=== PATIENT | female | born 1955 | race Caucasian/White ===

== ENCOUNTER → 2016-09-29 | Outpatient (REF) | payer MEDICAID ==
[~2016-09-29] MED LIST: ASPI81TA45 OR; ATEN100T OR; CEFA2IV IV; HYDROCODONE PO; LISI20TA5 OR; PERCOCET PO; PRED10TA2 OR; RELPAX OR; SAVELLA PO; VICODINES TAB OR
== END ==
LOC: M SFHCCLAY 11:39
PROVIDERS: ATTEND Family Medicine
DX: N30.01 Acute cystitis with hematuria (principal)

== ENCOUNTER → 2016-10-21 | Outpatient (REF) | payer MEDICAID ==
[2016-10-21 17:17] LABS: BASO # 0.1 K/mm3 (0.0-0.2); BASO % 0.7 % (0.0-1.0); EOS # 0.3 K/mm3 (0.0-0.50); EOS % 3.3 % (0.0-3.0); LARGE UNSTAINED CELL # 0.1 K/mm3 (0.0-0.4); LARGE UNSTAINED CELL % 1.6 % (0.0-4.0); LYMPH # 1.8 K/mm3 (1.5-4.5); LYMPH % 19.9 % (24.0-44.0); MEAN CORPUSCULAR HEMOGLOBIN 29.6 pg (27.0-33.0); MEAN CORPUSCULAR HGB CONC 32.4 g/dl (32.0-36.5); MEAN CORPUSCULAR VOLUME 91.5 fl (80.0-96.0); MONO # 0.7 K/mm3 (0.0-0.8); MONO % 8.2 % (0.0-5.0); NEUTROPHILS # 5.9 K/mm3 (1.8-7.7); NEUTROPHILS % 66.4 % (36.0-66.0); PLATELET COUNT, AUTOMATED 410 k/mm3 (150-450); RED CELL DISTRIBUTION WIDTH 12.9 % (11.5-14.5); WHITE BLOOD COUNT 8.9 K/mm3 (4.0-10.0)
[2016-10-21 18:53] LABS: ANION GAP 7 MEQ/L (8-16); BLOOD UREA NITROGEN 25 MG/DL (7-18); CALCIUM LEVEL 8.5 MG/DL (8.8-10.2); CARBON DIOXIDE LEVEL 30 MEQ/L (21-32); CHLORIDE LEVEL 103 MEQ/L (98-107); CREATININE FOR GFR 0.76 MG/DL (0.55-1.02); GLOMERULAR FILTRATION RATE > 60.0 (>45); GLUCOSE, FASTING 127 MG/DL (80-110); SODIUM LEVEL 140 MEQ/L (136-145)
== END ==
LOC: M SFHCCLAY 11:04
PROVIDERS: ATTEND Family Medicine
DX: D50.9 Iron deficiency anemia, unspecified (principal); R73.01 Impaired fasting glucose; I10 Essential (primary) hypertension

== ENCOUNTER → 2017-10-16 | Outpatient (REF) | payer OTHER, MEDICAID | LOC: M SFHCLERA 09:29 | DX: R30.0 Dysuria (principal) | CPT/HCPCS: 87186 ==

== ENCOUNTER → 2018-02-23 | Outpatient (REF) | payer OTHER, MEDICAID ==
[2018-02-23 11:51] LABS: BASO # 0.1 10^3/uL (0.0-0.2); BASO % 0.9 % (0.0-1.0); EOS # 0.4 10^3/uL (0.0-0.50); EOS % 3.6 % (0.0-3.0); HEMATOCRIT 39.5 % (36.0-47.0); HEMOGLOBIN 12.8 g/dl (12.0-15.5); IMMATURE GRANULOCYTE % 0.4 % (0-3.0); LYMPH # 2.1 10^3/uL (1.5-4.5); LYMPH % 21.3 % (24.0-44.0); MEAN CORPUSCULAR HEMOGLOBIN 27.9 pg (27.0-33.0); MEAN CORPUSCULAR HGB CONC 32.4 g/dl (32.0-36.5); MEAN CORPUSCULAR VOLUME 86.1 fl (80.0-96.0); MONO % 10.4 % (0.0-5.0); NEUTROPHILS # 6.2 10^3/uL (1.8-7.7); NEUTROPHILS % 63.4 % (36.0-66.0); PLATELET COUNT, AUTOMATED 325 10^3/uL (150-450); RED BLOOD COUNT 4.59 10^6/uL (4.00-5.40); RED CELL DISTRIBUTION WIDTH 13.2 % (11.5-14.5); WHITE BLOOD COUNT 9.7 10^3/uL (4.0-10.0)
[2018-02-23 13:11] LABS: ALBUMIN 3.8 GM/DL (3.2-5.2); ALBUMIN/GLOBULIN RATIO 1.06 (1.00-1.93); ALKALINE PHOSPHATASE 78 U/L (45-117); ALT/SGPT 22 U/L (12-78); ANION GAP 13 MEQ/L (8-16); AST/SGOT 13 U/L (7-37); BILIRUBIN,TOTAL 0.3 MG/DL (0.2-1.0); BLOOD UREA NITROGEN 22 MG/DL (7-18); CALCIUM LEVEL 9.3 MG/DL (8.8-10.2); CARBON DIOXIDE LEVEL 26 MEQ/L (21-32); CHLORIDE LEVEL 103 MEQ/L (98-107); CHOLESTEROL LEVEL 175 MG/DL (<200); CHOLESTEROL RISK RATIO 4.729 (<5); CREATININE FOR GFR 0.78 MG/DL (0.55-1.30); GLOMERULAR FILTRATION RATE > 60.0 (>45); GLUCOSE, FASTING 193 MG/DL (70-100); HDL CHOLESTEROL 37 MG/DL (>40); IRON (FE) 47 UG/DL (50-170); LDL CHOLESTEROL 95 MG/DL (<100); NON-HDL-C 138 MG/DL; SODIUM LEVEL 142 MEQ/L (136-145); TOTAL PROTEIN 7.4 GM/DL (6.4-8.2); TRIGLYCERIDES LEVEL 215 MG/DL (<150)
[2018-02-23 13:57] LABS: MAU/CREAT RATIO 15.9 MCG/MG (0.0-30.0)
[2018-02-23 16:04] LABS: ESTIMATED AVERAGE GLUCOSE 169 MG/DL (60-110); HEMOGLOBIN A1c 7.5 %
== END ==
LOC: M SFHCCLAY 07:37
DX: I10 Essential (primary) hypertension (principal); E11.9 Type 2 diabetes mellitus without complications; D50.9 Iron deficiency anemia, unspecified

== ENCOUNTER → 2018-05-06 | Outpatient (REF) | payer OTHER, MEDICAID | LOC: M SFHCCLAY 16:29 | DX: R30.0 Dysuria (principal) | CPT/HCPCS: 87086 ==

== ENCOUNTER → 2018-05-14 | Outpatient (CLI) | payer MEDICAID, OTHER, SELFPAY ==
--- NOTE | 2018-06-01 23:18 | ECWPNPC ---
PATIENT NAME: HANNA GARVIN : 1955 GENDER: FEMALE VISIT DATE: 05/14/2018 DISCHARGE DATE: 05/14/18 1312 VISIT LOCKED DATE TIME: PHYSICIAN: RADHA VALENZUELA MD RESOURCE: RADHA VALENZUELA MD REASON FOR APPOINTMENT 1. BACK PAIN HISTORY OF PRESENT ILLNESS FALL RISK SCREENING: SCREENING :NO FALLS IN THE PAST YEAR PAIN SCREENING: PATIENT HAS A COMPLAINT OF ACUTE OR CHRONIC PAIN :YES HISTORY OF PRESENT ILLNESS: 62 YEAR OLD FEMALE PATIENT WITH A HISTORY OF CHRONIC LOW BACK PAIN. PATIENT DESCRIBES THE PAIN ACHING, BURNING, SHARP, STABBING, SHOOTING, AND HAVING IT ALL THE TIME WITH A PAIN SCORE OF 8-10/10. 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 THE PATIENT STATES THAT PHYSICAL THERAPY DID NOT ADMITTING MANAGER IN PAIN RELIEF. THE PATIENT STATES THAT SHE HAS PROBLEMS SLEEPING DUE TO THE PAIN. PATIENT DENIES UNEXPLAINABLE WEIGHT LOSS, FEVER, CHILLS, NEW CHANGES ON HER URINARY OR BOWEL CONTROL. CURRENT MEDICATIONS TAKING LASIX 40 MG TABLET 1 TABLET ORALLY ONCE A DAY TAKING ATENOLOL 100 MG TABLET 1 TABLET ORALLY TWICE A DAY TAKING HYDROCHLOROTHIAZIDE 50 MG TABLET 1 TABLET ORALLY ONCE A DAY TAKING LISINOPRIL 40 MG TABLET 1 TABLET ORALLY ONCE A DAY TAKING CYMBALTA 60 MG CAPSULE DELAYED RELEASE PARTICLES 1 CAPSULE ORALLY ONCE A DAY TAKING FLEXERIL 10 MG TABLET 1 TABLET ORALLY THREE TIMES A DAY TAKING IRON 325 (65 FE) MG TABLET 1 TABLET ORALLY ONCE A DAY TAKING GLUCOMETER DIRECTED TAKING BLOOD GLUCOSE TEST - STRIP DIRECTED IN VITRO DAILY TAKING LANCETS - MISCELLANEOUS DIRECTED DAILY TAKING METFORMIN HCL 500 MG TABLET 1 TABLET WITH A MEAL ORALLY TWICE DAILY TAKING GABAPENTIN 600 MG TABLET 1 CAP ORALLY THREE TIMES DAILY TAKING ATENOLOL 100 MG TABLET TAKE ONE TABLET BY MOUTH TWICE A DAY NOT-TAKING TOPAMAX 200 MG TABLET 1 TABLET ORALLY BEFORE BEDTIME NOT-TAKING PREMPRO 0.625-5 MG TABLET 1 TABLET ORALLY ONCE A DAY NOT-TAKING LYRICA 200 MG CAPSULE 1 CAPSULE ORALLY TWICE A DAY NOT-TAKING ATORVASTATIN CALCIUM 40 MG TABLET 1 TABLET ORALLY ONCE A DAY NOT-TAKING MACROBID 100 MG CAPSULE 1 CAPSULE WITH FOOD ORALLY EVERY 12 HRS DISCONTINUED LASIX 40 MG TABLET TAKE ONE TABLET BY MOUTH ONCE A DAY , NOTES: DUPLICATE DISCONTINUED HYDROCHLOROTHIAZIDE 50 MG TABLET TAKE ONE TABLET BY MOUTH EVERY DAY , NOTES: DUPLICATE DISCONTINUED FERROUS SULFATE 325 (65 FE) MG TABLET TAKE ONE TABLET BY MOUTH EVERY DAY , NOTES: DUPLICATE DISCONTINUED LISINOPRIL 40 MG TABLET TAKE ONE TABLET BY MOUTH ONCE A DAY , NOTES: DUPLICATE DISCONTINUED CYMBALTA 60 MG CAPSULE DELAYED RELEASE PARTICLES TAKE ONE CAPSULE BY MOUTH EVERY DAY , NOTES: DUPLICATE MEDICATION LIST REVIEWED AND RECONCILED WITH THE PATIENT PAST MEDICAL HISTORY HTN RA LOW BACK PAIN MIGRAINES EDEMA IRON DEFICIENCY ANEMIA DIABETES CHRONIC BACK PAIN ALLERGIES N.K.D.A. SURGICAL HISTORY RT ANKLE ORIF, REVISED 2011, 05/13 CHOLECYSTECTOMY 2011 FAMILY HISTORY FATHER: 59 YRS, HEART ATTACK, DIAGNOSED WITH HEART DISEASE MOTHER: 58 YRS, CANCER METS UNKNOWN ORIGIN, DIAGNOSED WITH CANCER SIBLINGS: ALIVE, 3 BROTHERS , DIAGNOSED WITH DIABETES, HYPERTENSION SON(S): ALIVE DAUGHTER(S): ALIVE 10 BROTHER(S) , 2 SISTER(S) . 1 SON(S) , 1 DAUGHTER(S) - HEALTHY. NEGATIVE FOR ANY UROLOGIC DISEASE. SOCIAL HISTORY GENERAL: TOBACCO USE ARE YOU A:NONSMOKER BMI CARE GOAL FOLLOW-UP ABOVE NORMAL BMI FOLLOW-UPDIETARY MANAGEMENT EDUCATION, GUIDANCE, AND COUNSELING ALCOHOL SCREENING DID YOU HAVE A DRINK CONTAINING ALCOHOL IN THE PAST YEAR?NO POINTS0 INTERPRETATIONNEGATIVE RECREATIONAL DRUG USE DENIES. CAFFEINE CAFFEINE USE?YES HOW OFTEN AND HOW MUCH? 1 COFFEE DAILY, OCCASIONAL SODA SEXUAL HX HAD SEX IN THE LAST 12 MONTHS (VAGINAL, ORAL, OR ANAL)?: YES, WITH: MEN ONLY, USE PROTECTION?: NO, HAVE YOU EVER HAD AN STD?: NO. HIV / HEP-C SCREENING HIV TEST OFFERED TO PATIENT:YES DATE OFFERED:05/06/2018 TEST ACCEPTED:NO REASON:PATIENT DECLINED BROCHURE PROVIDED TO PATIENTNO HEP-C TEST OFFERED TO PATIENT:YES DATE OFFERED:05/06/2018 TEST ACCEPTED:NO REASON:PATIENT DECLINED ORTHODOXY NO NONDENOMINATIONAL BELIEFS THAT WOULD IMPACT HEALTH CARE. LANGUAGE MALAY. LEARNING BARRIERS / SPECIAL NEEDS CHANGE FROM LAST VISIT?NO BARRIERS TO LEARNING?NO HEARING IMPAIRED?NO VISION IMPAIRED?NO COGNITIVELY IMPAIRED?NO READINESS TO LEARN?YES LEARNING PREFERENCES?NO LEARNING CAPABILITIES PRESENT?YES EMOTIONAL BARRIERS?NO SPECIAL DEVICES?NO STICKER ON NEEDED?NO DOMESTIC VIOLENCE NONE. OCCUPATION: DISABLED . DIET: REGULAR. EXERCISE: NONE. MARITAL STATUS: SINGLE. OTHERS AT HOME: OTHER NON-RELATIVE. PAIN CLINIC PFS, CLERGY, PUBLIC HEALTH REFERRALS HAS THE PATIENT BEEN EDUCATED REGARDING HIS/HER PLAN OF CARE?YES HAS THE PATIENT BEEN EDUCATED REGARDING PAIN, THE RISK FOR PAIN, THE IMPORTANCE OF EFFECTIVE PAIN MANAGEMENT, AND THE PAIN ASSESSMENT PROCESS?YES ADVANCE DIRECTIVE ADVANCE DIRECTIVE DISCUSSED WITH PATIENT:YES PT DOES NOT HAVE HCP AND DECLINES INFO AT THIS TIME. ASSISTANCE FILLING OUT FORM WAS OFFEREED AND DECLINED. REVIEWED WITH PT 05/14/18 1149 BV. HOSPITALIZATION/MAJOR DIAGNOSTIC PROCEDURE SURGERY RELATED REVIEW OF SYSTEMS REVIEWED BY: PROVIDER: RADHA VALENZUELA MD . CONSTITUTIONAL: ANY CHANGE IN YOUR MEDICAL CONDITION? NO . CHILLS NO . FEVER NO . INFECTION: DO YOU HAVE NEW INFECTIONS? NO . DO YOU HAVE HISTORY OF MRSA? NO . MUSCULOSKELETAL: ANY NEW PATTERNS OF PAIN OR NUMBNESS? NO . SYTEMIC LUPUS NO . GASTROENTEROLOGY: ANY NEW CHANGE IN BOWEL CONTROL? NO . BARRETTS ESOPHAGUS NO . CIRRHOSIS NO . HEPATITIS NO . LIVER FAILURE NO . ACID REFLUX YES, OCCASIONAL, USUALLY RELATED TO FOOD . UNEXPLAINED WEIGHT LOSS NO . GENITOURINARY: ANY NEW CHANGE IN BLADDER CONTROL? NO . IS THERE A CHANCE YOU COULD BE ? NO . HEMATOLOGY/LYMPH: DO YOU TAKE ANY BLOOD THINNERS? (FOR EXAMPLE- COUMADIN, PLAVIX, AGGRENOX, PLATEL, PRADAXA, OR XARELTO) NO . WHEN WAS YOUR LAST DOSE? DATE: TIME: . LOW PLATELET COUNT NO . SICKLE CELL DISEASE NO . VON WILLIEBRANDS NO . FACTOR V LEIDEN NO . THALLASEMIA NO . ANEMIA NO . EASY BRUISING NO . NEUROLOGY: HAVE YOU FALLEN IN THE PAST 6 MONTHS? NO . ANY NEW EXTREMITY NUMBNESS OR WEAKNESS? NO . HEAD INJURY NO . DEMENTIA NO . CEREBRAL PALSY NO . MULTIPLE SCLEROSIS NO . DIZZINESS NO . HEADACHE PT COMPLAINS OF MIGRAINES DAILY. . STROKES NO . VERTIGO NO . CARDIOLOGY: DO YOU HAVE A PACEMAKER OR DEFIBRILLATOR? NO . ANGINA NO . HEART ATTACK NO . HEART SURGERY NO . CONGESTIVE HEART FAILURE/FLUID OVERLOAD NO . CHEST PAIN NO . HIGH BLOOD PRESSURE ON MEDICATION(S) . IRREGULAR HEART BEAT NO . RESPIRATORY: HAVE YOU BEEN SICK IN THE PAST WEEK? NO . FEVER NO . FLU LIKE SYMPTOMS? NO . CPAP NO . BYPAP NO . ASTHMA NO . EMPHYSEMA NO . CHRONIC LUNG DISEASES NO . SHORTNESS OF BREATH ON EXERTION NO . COUGH NO . SNORING NO . INTEGUMENTARY: DO YOU HAVE ANY RASHES OR OPEN SORES? NO . ALLERGIC/IMMUNO: ARE YOU ALLERGIC TO SHELLFISH OR IV DYE? NO . ANY NEW ALLERGIES? NO . PSYCHIATRIC: DO YOU HAVE THOUGHTS OF HURTING YOURSELF OR SOMEONE ELSE? NO . ARE YOU ABUSED, NEGLECTED, OR IN AN UNSAFE ENVIRONMENT? NO . ENDOCRINOLOGY: ARE YOU DIABETIC? YES, ON MEDICATION . THYROID DISORDER NO . OTHER: DO YOU NEED ANY PRESCRIPTIONS? NO . IF YES, PLEASE LIST: ____ . ANY NEW PROBLEMS WITH YOUR MEDICATIONS? NO . WHEN DID YOU LAST EAT? ____ . WHEN DID YOU LAST DRINK? ____ . WHAT DID YOU LAST DRINK? ____ . NAME OF PERSON DRIVING YOU HOME? ____ . DO YOU HAVE ANY OTHER QUESTIONS OR CONCERNS NO . VITAL SIGNS WT 260.8 LBS, HT 67.5 IN, BMI 40.24 INDEX, BP 133/72 MM HG, HR 72 /MIN, RR 18 /MIN, TEMP 97.2 F, OXYGEN SAT % 95%, NA INITIALS AW 1128, REVIEWED BY: BV. EXAMINATION GENERAL EXAMINATION: PATIENT IS ALERT O X 3 AND COOPERATIVE. LUNGS CLEAR, TO AUSCULTATION. HEART: NO MURMURS OR GALLOPS; FACIAL CRANIAL NERVES ARE GROSSLY NORMAL. GOOD SYMMETRY OF FACIAL MUSCLE MOVEMENT. NORMAL VISUAL MAO. PATIENT HAS DIFFICULTIES STANDING UP AND SITTING. ANTALGIC GAIT. PATIENT IS WALKING AT AN AMPLE ANGLE. BOTH LEGS ARE WEAK WITH EXTENSION AND FLEXION. TENDERNESS OVER THE FACET JOINTS OF THE LOW BACK. INCREASING PAIN WITH EXTENSION AND LATERAL ROTATION OF THE LOW BACK. MRI OF THE LUMBAR SPINE DONE ON 04/23/18 SHOWS BULGING DISCS, DISC PROTRUSIONS AND FACET ARTHROPATHY CHANGES AT MULTIPLE LEVELS. ASSESSMENTS LUMBAR FACET ARTHROPATHY - M47.816 (PRIMARY) LOW BACK PAIN - M54.5 OTHER CHRONIC PAIN - G89.29 TREATMENT LUMBAR FACET ARTHROPATHY NOTES: FACET JOINT INJECTION MATERIAL WAS PRINTED,FACET JOINT INJECTION: YOUR EXPERIENCE MATERIAL WAS PRINTED. CLINICAL NOTES: WE DISCUSSED SEVERAL ISSUES WITH MRS. GARVIN'S PAIN MANAGEMENT CASE. DUE TO THE INCREASED PAIN OVER THE LOW BACK, I WOULD LIKE TO MOVE FORWARD WITH A LUMBAR FACET BLOCK AT THIS TIME AT L4-L5, L5-S1 BILATERAL. WE DISCUSSED THE BENEFITS, RISKS, AND ALTERNATIVES OF THE INJECTION AND THE PATIENT WOULD LIKE TO PROCEED. I WILL REQUEST AUTHORIZATION FOR THE PROCEDURE AND BOOK AFTER APPROVED. I WOULD ALSO LIKE TO START THE PATIENT ON TIZANIDINE TO HELP WITH SLEEPING AND PAIN RELIEF. I WILL ALSO PRESCRIBE A WEEK SUPPLY OF HYDROCODONE TO HELP WITH THE SEVERE PAIN UNTIL I FOLLOW UP WITH THE PATIENT NEXT WEEK. I WOULD ALSO LIKE FOR THE PATIENT TO DO A URINE TOXICOLOGY TEST AND SIGN A NARCOTIC AGREEMENT AT TODAY'S APPOINTMENT. INSTRUCTIONS WERE GIVEN, QUESTIONS WERE ANSWERED, PATIENT REPORTS UNDERSTANDING AND AGREES WITH THE PLAN. I, ROSSI TAN, DOCUMENTED THE ABOVE INFORMATION ACTING A SCRIBE FOR DR. VALENZUELA. I HAVE REVIEWED THE ABOVE DOCUMENT, WRITTEN BY ROSSI TAN SCRIBEliazar AND I VERIFY THAT IT IS ACCURATE. DEAR DR. UMANA: THANK YOU FOR YOUR KIND REFERRAL OF MRS. GARVIN. IF YOU WANT TO DISCUSS HER CASE WITH ME, PLEASE CALL ME AT THE PAIN CENTER AT [phone]. SINCERELY, RDAHA VALENZUELA MD. PAIN MEDICINE. OTHERS START TIZANIDINE HCL TABLET, 2 MG, 1 TABLET NEEDED, ORALLY FOR SPASMS AND PAIN, BEFORE BEDTIME MAY REPEAT IN 5 HRS MDD2, 30 DAY(S), 50, REFILLS 1 START HYDROCODONE-ACETAMINOPHEN TABLET, 5-325 MG, 1 TABLET NEEDED, ORALLY FOR PAIN, DAILY, 7 DAY(S), 7 TABLET, REFILLS 0 PROCEDURES PN WORKMANS' COMP OPINION IN YOUR OPINION, WAS THE INCIDENT THAT THE PATIENT DESCRIBED THE COMPETENT MEDICAL CAUSE OF THIS INJURY/ILLNESS? YES ARE THE PATIENT'S COMPLAINTS CONSISTENT WITH HIS/HER HISTORY OF THE INJURY/ILLNESS? YES IS THE PATIENT'S HISTORY OF THE INJURY/ILLNESS CONSISTENT WITH YOUR OBJECTIVE FINDING? YES WHAT IS THE PERCENTAGE OF TEMPORARY IMPAIRMENT? MILD = 25% IS THE PATIENT WORKING? NO DOCTOR ON SITE: RADHA TAI MD PREVENTIVE MEDICINE PAIN CLINIC TEACHING: MEDICATIONS PRINTED HANDOUTS FOR TIZANIDINE AND HYDROCODONE/ACETAMINOPHEN GIVEN AND REVIEWED WITH PATIENTS. PROCEDURE TEACHING FACET JOINT INJECTION PRINTED AND REVIEWED WITH PATIENT, PT VERBALIZES UNDERSTANDING OF TEACHING.. THE PATIENT HAS BEEN EDUCATED REGARDING HIS/HER PLAN OF CARE :YES (PLEASE DOCUMENT ADDTIONAL DETAILS IN THE FREE TEXT NOTES SECTION) PROCEDURE CODES FA211 ESTABILISHED PATIENT [facility] FACILITY CHARGE G2867 CURRENT MEDS W/DOSAGES DOCUMENTED G8411 PAIN ASSESS POS TOOL F/U PLAN DOC DISPOSITION & COMMUNICATION FOLLOW UP 2 - 3 DAYS ELECTRONICALLY SIGNED BY RADHA VALENZUELA MD, MD ON 06/01/2018 AT 07:42 PM EST DISCLAIMER : THIS IS A VISIT SUMMARY EXTRACTED FROM THE [employer] CHART. IT IS NOT A COPY OF THE [employer] PROGRESS NOTE. MICHAEL
== END ==
LOC: M PAIN 11:30
PROVIDERS: ATTEND Anesthesiology
DX: G89.29 Other chronic pain (principal); M54.5 Low back pain; I10 Essential (primary) hypertension; M06.9 Rheumatoid arthritis, unspecified; G43.909 Migraine, unspecified, not intractable, without status migrainosus; D50.9 Iron deficiency anemia, unspecified; E11.9 Type 2 diabetes mellitus without complications; R60.9 Edema, unspecified; Z90.49 Acquired absence of other specified parts of digestive tract; Z79.84 Long term (current) use of oral hypoglycemic drugs; Z79.899 Other long term (current) drug therapy

== ENCOUNTER → 2018-05-17 | Outpatient (CLI) | payer SELFPAY, MEDICAID ==
--- NOTE | 2018-06-01 23:15 | ECWPNPC ---
PATIENT NAME: HANNA GARVIN : 1955 GENDER: FEMALE VISIT DATE: 05/17/2018 DISCHARGE DATE: 05/17/181657 VISIT LOCKED DATE TIME: PHYSICIAN: RADHA VALENZUELA MD RESOURCE: RADHA VALENZUELA MD REASON FOR APPOINTMENT 1. F/U BACK PAIN HISTORY OF PRESENT ILLNESS HISTORY OF PRESENT ILLNESS: PAIN THE PATIENT DESCRIBES THE PAIN... 62 YEAR OLD FEMALE PATIENT WITH A HISTORY OF CHRONIC LOW BACK PAIN. THE PATIENT DESCRIBES THE PAIN ACHING, BURNING, SHARP, STABBING, AND HAVING IT ALL THE TIME WITH A PAIN SCORE OF 10/10. 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 THE PATIENT SAYS THAT THE PAIN STARTS IN HER LOW BACK AND RADIATES DOWN BOTH OF HER LEGS WITH SOME NUMBNESS AND TINGLING. THE PATIENT SAYS THAT SHE SOMETIMES EXPERIENCES SHAKINESS IN HER LEGS THAT CAUSES HER TO FALL. THE PATIENT HAS TRIED PHYSICAL THERAPY IN THE PAST, BUT STATES THAT IT MADE HER PAIN WORSE. THE PATIENT SAYS SHE HAS DIFFICULTY DOING ACTIVITIES SUCH COOKING, CLEANING, AND STANDING FOR LONG PERIODS OF TIME. THE PATIENT IS CURRENTLY USING GABAPENTIN, CYMBALTA, TIZANIDINE, AND HYDROCODONE TO AID IN PAIN RELIEF. THE PATIENT STATES THAT THE TIZANIDINE HAS NOT BEEN HELPING AND THE ONE HYDROCODONE PER DAY HAS NOT HELPED. PATIENT DENIES UNEXPLAINABLE WEIGHT LOSS, FEVER, CHILLS, NEW CHANGES ON HER URINARY OR BOWEL CONTROL. FALL RISK SCREENING: SCREENING :NO FALLS IN THE PAST YEAR CURRENT MEDICATIONS TAKING LASIX 40 MG TABLET 1 TABLET ORALLY ONCE A DAY TAKING ATENOLOL 100 MG TABLET 1 TABLET ORALLY TWICE A DAY TAKING HYDROCHLOROTHIAZIDE 50 MG TABLET 1 TABLET ORALLY ONCE A DAY TAKING LISINOPRIL 40 MG TABLET 1 TABLET ORALLY ONCE A DAY TAKING CYMBALTA 60 MG CAPSULE DELAYED RELEASE PARTICLES 1 CAPSULE ORALLY ONCE A DAY TAKING FLEXERIL 10 MG TABLET 1 TABLET ORALLY THREE TIMES A DAY TAKING IRON 325 (65 FE) MG TABLET 1 TABLET ORALLY ONCE A DAY TAKING GLUCOMETER DIRECTED TAKING BLOOD GLUCOSE TEST - STRIP DIRECTED IN VITRO DAILY TAKING LANCETS - MISCELLANEOUS DIRECTED DAILY TAKING METFORMIN HCL 500 MG TABLET 1 TABLET WITH A MEAL ORALLY TWICE DAILY TAKING GABAPENTIN 600 MG TABLET 1 CAP ORALLY THREE TIMES DAILY TAKING TIZANIDINE HCL 2 MG TABLET 1 TABLET NEEDED ORALLY FOR SPASMS AND PAIN BEFORE BEDTIME MAY REPEAT IN 5 HRS MDD2 TAKING HYDROCODONE-ACETAMINOPHEN 5-325 MG TABLET 1 TABLET NEEDED ORALLY FOR PAIN DAILY NOT-TAKING ATENOLOL 100 MG TABLET TAKE ONE TABLET BY MOUTH TWICE A DAY , NOTES: DUPLICATE NOT-TAKING TOPAMAX 200 MG TABLET 1 TABLET ORALLY BEFORE BEDTIME NOT-TAKING PREMPRO 0.625-5 MG TABLET 1 TABLET ORALLY ONCE A DAY NOT-TAKING LYRICA 200 MG CAPSULE 1 CAPSULE ORALLY TWICE A DAY NOT-TAKING ATORVASTATIN CALCIUM 40 MG TABLET 1 TABLET ORALLY ONCE A DAY NOT-TAKING MACROBID 100 MG CAPSULE 1 CAPSULE WITH FOOD ORALLY EVERY 12 HRS MEDICATION LIST REVIEWED AND RECONCILED WITH THE PATIENT PAST MEDICAL HISTORY HTN RA LOW BACK PAIN MIGRAINES EDEMA IRON DEFICIENCY ANEMIA DIABETES CHRONIC BACK PAIN ALLERGIES N.K.D.A. SURGICAL HISTORY RT ANKLE ORIF, REVISED 2011, 05/13 CHOLECYSTECTOMY 2011 FAMILY HISTORY FATHER: 59 YRS, HEART ATTACK, DIAGNOSED WITH HEART DISEASE MOTHER: 58 YRS, CANCER METS UNKNOWN ORIGIN, DIAGNOSED WITH CANCER SIBLINGS: ALIVE, 3 BROTHERS , DIAGNOSED WITH DIABETES, HYPERTENSION SON(S): ALIVE DAUGHTER(S): ALIVE 10 BROTHER(S) , 2 SISTER(S) . 1 SON(S) , 1 DAUGHTER(S) - HEALTHY. NEGATIVE FOR ANY UROLOGIC DISEASE. SOCIAL HISTORY GENERAL: TOBACCO USE ARE YOU A:NONSMOKER BMI CARE GOAL FOLLOW-UP ABOVE NORMAL BMI FOLLOW-UPDIETARY MANAGEMENT EDUCATION, GUIDANCE, AND COUNSELING ALCOHOL SCREENING DID YOU HAVE A DRINK CONTAINING ALCOHOL IN THE PAST YEAR?NO POINTS0 INTERPRETATIONNEGATIVE RECREATIONAL DRUG USE DENIES. CAFFEINE CAFFEINE USE?YES HOW OFTEN AND HOW MUCH? 1 COFFEE DAILY, OCCASIONAL SODA SEXUAL HX HAD SEX IN THE LAST 12 MONTHS (VAGINAL, ORAL, OR ANAL)?: YES, WITH: MEN ONLY, USE PROTECTION?: NO, HAVE YOU EVER HAD AN STD?: NO. HIV / HEP-C SCREENING HIV TEST OFFERED TO PATIENT:YES DATE OFFERED:05/06/2018 TEST ACCEPTED:NO HEP-C TEST OFFERED TO PATIENT:YES DATE OFFERED:05/06/2018 REASON:PATIENT DECLINED TEST ACCEPTED:NO REASON:PATIENT DECLINED BROCHURE PROVIDED TO PATIENTNO ADVENT NO MU-ISM BELIEFS THAT WOULD IMPACT HEALTH CARE. LANGUAGE EQUATORIAL GUINEAN. LEARNING BARRIERS / SPECIAL NEEDS CHANGE FROM LAST VISIT?NO BARRIERS TO LEARNING?NO HEARING IMPAIRED?NO VISION IMPAIRED?NO COGNITIVELY IMPAIRED?NO READINESS TO LEARN?YES LEARNING PREFERENCES?NO LEARNING CAPABILITIES PRESENT?YES EMOTIONAL BARRIERS?NO SPECIAL DEVICES?NO FRONT TENDER NEEDED?NO DOMESTIC VIOLENCE NONE. OCCUPATION: DISABLED . DIET: REGULAR. EXERCISE: NONE. MARITAL STATUS: SINGLE. OTHERS AT HOME: OTHER NON-RELATIVE. PAIN CLINIC PFS, CLERGY, PUBLIC HEALTH REFERRALS HAS THE PATIENT BEEN EDUCATED REGARDING HIS/HER PLAN OF CARE?YES HAS THE PATIENT BEEN EDUCATED REGARDING PAIN, THE RISK FOR PAIN, THE IMPORTANCE OF EFFECTIVE PAIN MANAGEMENT, AND THE PAIN ASSESSMENT PROCESS?YES ADVANCE DIRECTIVE ADVANCE DIRECTIVE DISCUSSED WITH PATIENT:YES PATIENT DECLINES HCP INFORMATION AT THIS TIME. REVIEWED WITH PT 05/14/18 1149 BVREVIEWED WITH PATIENT 05/17/18 1617 JS. HOSPITALIZATION/MAJOR DIAGNOSTIC PROCEDURE SURGERY RELATED REVIEW OF SYSTEMS REVIEWED BY: PROVIDER: RADHA VALENZUELA MD . CONSTITUTIONAL: ANY CHANGE IN YOUR MEDICAL CONDITION? NO . CHILLS NO . FEVER NO . INFECTION: DO YOU HAVE NEW INFECTIONS? NO . DO YOU HAVE HISTORY OF MRSA? NO . MUSCULOSKELETAL: ANY NEW PATTERNS OF PAIN OR NUMBNESS? NO . GASTROENTEROLOGY: ANY NEW CHANGE IN BOWEL CONTROL? NO . GENITOURINARY: ANY NEW CHANGE IN BLADDER CONTROL? NO . IS THERE A CHANCE YOU COULD BE ? NO . HEMATOLOGY/LYMPH: DO YOU TAKE ANY BLOOD THINNERS? (FOR EXAMPLE- COUMADIN, PLAVIX, AGGRENOX, PLATEL, PRADAXA, OR XARELTO) NO . WHEN WAS YOUR LAST DOSE? DATE: TIME: . NEUROLOGY: HAVE YOU FALLEN IN THE PAST 6 MONTHS? NO . ANY NEW EXTREMITY NUMBNESS OR WEAKNESS? NO . CARDIOLOGY: DO YOU HAVE A PACEMAKER OR DEFIBRILLATOR? NO . RESPIRATORY: HAVE YOU BEEN SICK IN THE PAST WEEK? NO . FEVER NO . FLU LIKE SYMPTOMS? NO . COUGH NO . INTEGUMENTARY: DO YOU HAVE ANY RASHES OR OPEN SORES? NO . ALLERGIC/IMMUNO: ARE YOU ALLERGIC TO SHELLFISH OR IV DYE? NO . ANY NEW ALLERGIES? NO . PSYCHIATRIC: DO YOU HAVE THOUGHTS OF HURTING YOURSELF OR SOMEONE ELSE? NO . ARE YOU ABUSED, NEGLECTED, OR IN AN UNSAFE ENVIRONMENT? NO . ENDOCRINOLOGY: ARE YOU DIABETIC? YES . OTHER: DO YOU NEED ANY PRESCRIPTIONS? YES . IF YES, PLEASE LIST: ____HYDROCODONE . ANY NEW PROBLEMS WITH YOUR MEDICATIONS? NO . WHEN DID YOU LAST EAT? ____ . WHEN DID YOU LAST DRINK? ____ . WHAT DID YOU LAST DRINK? ____ . NAME OF PERSON DRIVING YOU HOME? ____ . DO YOU HAVE ANY OTHER QUESTIONS OR CONCERNS NO . VITAL SIGNS WT 260.8 LBS, HT 67.5 IN, BMI 40.24 INDEX, BP 158/87 MM HG, HR 72 /MIN, RR 18 /MIN, TEMP 96.6 F, OXYGEN SAT % 95%, SAFE IN ENV? (Y/N) YES, NA INITIALS AW 1551, REVIEWED BY: KAITY. EXAMINATION GENERAL EXAMINATION: PATIENT IS ALERT O X 3 AND COOPERATIVE. ANTALGIC GAIT. TENDERNESS IN THE PARASPINAL MUSCLE GROUP IN THE LOW BACK AREA. BOTH LEGS ARE WEAK AT EXTENSION AND FLEXION. MRI OF THE LUMBAR SPINE DONE ON 04/23/2018 SHOWS A DISC EXTRUSION AT L4-L5 AND MULTIPLE DISC PROTRUSIONS. ASSESSMENTS INTERVERTEBRAL DISC DISORDER WITH RADICULOPATHY OF LUMBAR REGION - M51.16 (PRIMARY) LUMBAGO - M54.5 DIABETIC POLYNEUROPATHY ASSOCIATED WITH TYPE 2 DIABETES MELLITUS - E11.42 TREATMENT INTERVERTEBRAL DISC DISORDER WITH RADICULOPATHY OF LUMBAR REGION CLINICAL NOTES: WE DISCUSSED SEVERAL ISSUES WITH MRS. GARVIN'S PAIN MANAGEMENT CASE. I WOULD LIKE TO INCREASES THE CYMBALTA TO 2 TABLETS PER DAY AND THE GABAPENTIN TO 4 TABLETS PER DAY FOR THE NEUROPATHIC PAIN. I WILL ALSO INCREASE THE HYDROCODONE TO 2 TABLETS PER DAY FOR THE SOMATIC PAIN. I WOULD LIKE THE PATIENT TO STOP USING THE TIZANIDINE FOR NOW, BUT WE WILL CONSIDER INCREASING THE DOSAGE IN THE FUTURE. ISTOP _[id number] WAS REVIEWED. I WILL REQUEST AN INTERFERENTIAL TENS UNIT TO SEE IF THAT WILL HELP RELIEVE SOME OF THE PATIENT'S PAIN. DUE TO THE LUMBAR RADICULOPATHY, I WOULD LIKE TO MOVE FORWARD WITH A LUMBAR EPIDURAL STEROID INJECTION AT THIS TIME. WE DISCUSSED THE BENEFITS, RISKS, AND ALTERNATIVES OF THE INJECTION AND THE PATIENT WOULD LIKE TO PROCEED. THE PATIENT WILL FOLLOW UP IN 3 WEEKS FOR MEDICATION MANAGEMENT. INSTRUCTIONS WERE GIVEN, QUESTIONS WERE ANSWERED, PATIENT REPORTS UNDERSTANDING AND AGREES WITH THE PLAN. I, STACY BASHIR, DOCUMENTED THE ABOVE INFORMATION ACTING A SCRIBE FOR DR. VALENZUELA. I HAVE REVIEWED THE ABOVE DOCUMENT, WRITTEN BY STACY BASHIR SCRIBE AND I VERIFY THAT IT IS ACCURATE. LUMBAGO REFILL CYMBALTA CAPSULE DELAYED RELEASE PARTICLES, 60 MG, 1 CAPSULE, ORALLY FOR PAIN, BID, 30 DAYS, 60 CAPSULE, REFILLS 0 DIABETIC POLYNEUROPATHY ASSOCIATED WITH TYPE 2 DIABETES MELLITUS REFILL GABAPENTIN TABLET, 600 MG, 1 CAP, ORALLY, QID, 30 DAY(S), 120 CAPSULE, REFILLS 0 OTHERS REFILL TIZANIDINE HCL TABLET, 2 MG, 1 TABLET NEEDED, ORALLY FOR SPASMS AND PAIN, BEFORE BEDTIME MAY REPEAT IN 5 HRS MDD2, 30 DAY(S), 50, REFILLS 1 REFILL HYDROCODONE-ACETAMINOPHEN TABLET, 5-325 MG, 1 TABLET NEEDED, ORALLY FOR PAIN, BID, 30 DAYS, 60, REFILLS 0 PROCEDURE CODES FA211 ESTABILISHED PATIENT [facility] FACILITY CHARGE G8427 CURRENT MEDS W/DOSAGES DOCUMENTED G8730 PAIN ASSESS POS TOOL F/U PLAN DOC DISPOSITION & COMMUNICATION FOLLOW UP 3 WEEKS ELECTRONICALLY SIGNED BY RADHA VALENZUELA MD, ON 06/01/2018 AT 07:28 PM EST DISCLAIMER : THIS IS A VISIT SUMMARY EXTRACTED FROM THE [employer] CHART. IT IS NOT A COPY OF THE [employer] PROGRESS NOTE. MTDD
== END ==
LOC: M PAIN 15:30
PROVIDERS: ATTEND Anesthesiology
DX: M51.16 Intervertebral disc disorders with radiculopathy, lumbar region (principal); M54.5 Low back pain; E11.42 Type 2 diabetes mellitus with diabetic polyneuropathy; I10 Essential (primary) hypertension; M06.9 Rheumatoid arthritis, unspecified; G43.909 Migraine, unspecified, not intractable, without status migrainosus; R60.9 Edema, unspecified; D50.9 Iron deficiency anemia, unspecified; Z90.49 Acquired absence of other specified parts of digestive tract; Z79.84 Long term (current) use of oral hypoglycemic drugs; Z79.891 Long term (current) use of opiate analgesic; Z79.899 Other long term (current) drug therapy

== ENCOUNTER → 2018-06-07 | Outpatient (CLI) | payer SELFPAY, MEDICAID ==
--- NOTE | 2018-06-23 00:17 | ECWPNPC ---
PATIENT NAME: HANNA GARVIN : 1955 GENDER: FEMALE VISIT DATE: 06/07/2018 DISCHARGE DATE: 06/07/18 1547 VISIT LOCKED DATE TIME: PHYSICIAN: RADHA VALENZUELA MD RESOURCE: RADHA VALENZUELA MD REASON FOR APPOINTMENT 1. MED MNNT HISTORY OF PRESENT ILLNESS HISTORY OF PRESENT ILLNESS: PAIN THE PATIENT DESCRIBES THE PAIN... 62 YEAR OLD FEMALE PATIENT WITH A HISTORY OF CHRONIC LOW BACK PAIN. THE PATIENT DESCRIBES THE PAIN ACHING, BURNING, STABBING, SHOOTING, AND CONTINUOUS WITH A PAIN SCORE OF 2-10/10 DEPENDING ON PHYSICAL ACTIVITY. THE PATIENT SAYS THAT HER PAIN HAS BEEN SEVERE RECENTLY AND HER MEDICATIONS HAVE NOT BEEN HELPING MUCH. THE PATIENT IS CURRENTLY USING HYDROCODONE, TIZANIDINE, GABAPENTIN, AND CYMBALTA TO AID IN PAIN RELIEF. PATIENT DENIES UNEXPLAINABLE WEIGHT LOSS, FEVER, CHILLS, NEW CHANGES ON HER URINARY OR BOWEL CONTROL. FALL RISK SCREENING: SCREENING :NO FALLS IN THE PAST YEAR CURRENT MEDICATIONS TAKING TIZANIDINE HCL 2 MG TABLET 1 TABLET NEEDED ORALLY FOR SPASMS AND PAIN BEFORE BEDTIME MAY REPEAT IN 5 HRS MDD2 TAKING HYDROCODONE-ACETAMINOPHEN 5-325 MG TABLET 1 TABLET NEEDED ORALLY FOR PAIN BID TAKING GABAPENTIN 600 MG TABLET 1 CAP ORALLY QID TAKING LASIX 40 MG TABLET 1 TABLET ORALLY ONCE A DAY TAKING ATENOLOL 100 MG TABLET 1 TABLET ORALLY TWICE A DAY TAKING HYDROCHLOROTHIAZIDE 50 MG TABLET 1 TABLET ORALLY ONCE A DAY TAKING LISINOPRIL 40 MG TABLET 1 TABLET ORALLY ONCE A DAY TAKING FLEXERIL 10 MG TABLET 1 TABLET ORALLY THREE TIMES A DAY TAKING IRON 325 (65 FE) MG TABLET 1 TABLET ORALLY ONCE A DAY TAKING GLUCOMETER DIRECTED TAKING BLOOD GLUCOSE TEST - STRIP DIRECTED IN VITRO DAILY TAKING LANCETS - MISCELLANEOUS DIRECTED DAILY TAKING METFORMIN HCL 500 MG TABLET 1 TABLET WITH A MEAL ORALLY TWICE DAILY TAKING CYMBALTA 60 MG CAPSULE DELAYED RELEASE PARTICLES TAKE ONE CAPSULE BY MOUTH EVERY DAY NOT-TAKING ATENOLOL 100 MG TABLET TAKE ONE TABLET BY MOUTH TWICE A DAY , NOTES: DUPLICATE NOT-TAKING TOPAMAX 200 MG TABLET 1 TABLET ORALLY BEFORE BEDTIME NOT-TAKING PREMPRO 0.625-5 MG TABLET 1 TABLET ORALLY ONCE A DAY NOT-TAKING LYRICA 200 MG CAPSULE 1 CAPSULE ORALLY TWICE A DAY NOT-TAKING ATORVASTATIN CALCIUM 40 MG TABLET 1 TABLET ORALLY ONCE A DAY NOT-TAKING MACROBID 100 MG CAPSULE 1 CAPSULE WITH FOOD ORALLY EVERY 12 HRS DISCONTINUED HYDROCHLOROTHIAZIDE 50 MG TABLET TAKE ONE TABLET BY MOUTH EVERY DAY , NOTES: DUPLICATE DISCONTINUED FERROUS SULFATE 325 (65 FE) MG TABLET TAKE ONE TABLET BY MOUTH EVERY DAY , NOTES: DUPLICATE DISCONTINUED LISINOPRIL 40 MG TABLET TAKE ONE TABLET BY MOUTH ONCE A DAY , NOTES: DUPLICATE MEDICATION LIST REVIEWED AND RECONCILED WITH THE PATIENT PAST MEDICAL HISTORY HTN RA LOW BACK PAIN MIGRAINES EDEMA IRON DEFICIENCY ANEMIA DIABETES CHRONIC BACK PAIN ALLERGIES N.K.D.A. SURGICAL HISTORY RT ANKLE ORIF, REVISED 2011, 05/13 CHOLECYSTECTOMY 2011 FAMILY HISTORY FATHER: 59 YRS, HEART ATTACK, DIAGNOSED WITH HEART DISEASE MOTHER: 58 YRS, CANCER METS UNKNOWN ORIGIN, DIAGNOSED WITH CANCER SIBLINGS: ALIVE, 3 BROTHERS , DIAGNOSED WITH DIABETES, HYPERTENSION SON(S): ALIVE DAUGHTER(S): ALIVE 10 BROTHER(S) , 2 SISTER(S) . 1 SON(S) , 1 DAUGHTER(S) - HEALTHY. NEGATIVE FOR ANY UROLOGIC DISEASE. SOCIAL HISTORY GENERAL: TOBACCO USE ARE YOU A:NONSMOKER BMI CARE GOAL FOLLOW-UP ABOVE NORMAL BMI FOLLOW-UPDIETARY MANAGEMENT EDUCATION, GUIDANCE, AND COUNSELING ALCOHOL SCREENING DID YOU HAVE A DRINK CONTAINING ALCOHOL IN THE PAST YEAR?NO POINTS0 INTERPRETATIONNEGATIVE RECREATIONAL DRUG USE DENIES. CAFFEINE CAFFEINE USE?YES HOW OFTEN AND HOW MUCH? 1 COFFEE DAILY, OCCASIONAL SODA SEXUAL HX HAD SEX IN THE LAST 12 MONTHS (VAGINAL, ORAL, OR ANAL)?: YES, WITH: MEN ONLY, USE PROTECTION?: NO, HAVE YOU EVER HAD AN STD?: NO. HIV / HEP-C SCREENING HIV TEST OFFERED TO PATIENT:YES DATE OFFERED:05/06/2018 TEST ACCEPTED:NO HEP-C TEST OFFERED TO PATIENT:YES DATE OFFERED:05/06/2018 REASON:PATIENT DECLINED TEST ACCEPTED:NO REASON:PATIENT DECLINED BROCHURE PROVIDED TO PATIENTNO CHRISTIANITY NO ORTHODOXY BELIEFS THAT WOULD IMPACT HEALTH CARE. LANGUAGE HUNGARIAN. LEARNING BARRIERS / SPECIAL NEEDS CHANGE FROM LAST VISIT?NO BARRIERS TO LEARNING?NO HEARING IMPAIRED?NO VISION IMPAIRED?NO COGNITIVELY IMPAIRED?NO READINESS TO LEARN?YES LEARNING PREFERENCES?NO LEARNING CAPABILITIES PRESENT?YES EMOTIONAL BARRIERS?NO SPECIAL DEVICES?NO CRAB BUTCHER NEEDED?NO DOMESTIC VIOLENCE NONE. OCCUPATION: DISABLED . DIET: REGULAR. EXERCISE: NONE. MARITAL STATUS: SINGLE. OTHERS AT HOME: OTHER NON-RELATIVE. PAIN CLINIC PFS, CLERGY, PUBLIC HEALTH REFERRALS HAS THE PATIENT BEEN EDUCATED REGARDING HIS/HER PLAN OF CARE?YES HAS THE PATIENT BEEN EDUCATED REGARDING PAIN, THE RISK FOR PAIN, THE IMPORTANCE OF EFFECTIVE PAIN MANAGEMENT, AND THE PAIN ASSESSMENT PROCESS?YES ADVANCE DIRECTIVE ADVANCE DIRECTIVE DISCUSSED WITH PATIENT:YES PATIENT DECLINES HCP INFORMATION AT THIS TIME. DECLINES ASSISTANCE WITH FORM. 06/07/18 1452 REVIEWED WITH PT 05/14/18 1149 BVREVIEWED WITH PATIENT 05/17/18 1617 JSREVIEWED WITH PT 06/07/18 1453 BV. HOSPITALIZATION/MAJOR DIAGNOSTIC PROCEDURE SURGERY RELATED REVIEW OF SYSTEMS REVIEWED BY: PROVIDER: RADHA VALENZUELA MD . CONSTITUTIONAL: ANY CHANGE IN YOUR MEDICAL CONDITION? NO . CHILLS NO . FEVER NO . INFECTION: DO YOU HAVE NEW INFECTIONS? NO . DO YOU HAVE HISTORY OF MRSA? NO . MUSCULOSKELETAL: ANY NEW PATTERNS OF PAIN OR NUMBNESS? NO . GASTROENTEROLOGY: ANY NEW CHANGE IN BOWEL CONTROL? NO . GENITOURINARY: ANY NEW CHANGE IN BLADDER CONTROL? NO . IS THERE A CHANCE YOU COULD BE ? NO . HEMATOLOGY/LYMPH: DO YOU TAKE ANY BLOOD THINNERS? (FOR EXAMPLE- COUMADIN, PLAVIX, AGGRENOX, PLATEL, PRADAXA, OR XARELTO) NO . WHEN WAS YOUR LAST DOSE? DATE: TIME: . NEUROLOGY: HAVE YOU FALLEN IN THE PAST 6 MONTHS? NO . ANY NEW EXTREMITY NUMBNESS OR WEAKNESS? NO . CARDIOLOGY: DO YOU HAVE A PACEMAKER OR DEFIBRILLATOR? NO . RESPIRATORY: HAVE YOU BEEN SICK IN THE PAST WEEK? NO . FEVER NO . FLU LIKE SYMPTOMS? NO . COUGH NO . INTEGUMENTARY: DO YOU HAVE ANY RASHES OR OPEN SORES? NO . ALLERGIC/IMMUNO: ARE YOU ALLERGIC TO SHELLFISH OR IV DYE? NO . ANY NEW ALLERGIES? NO . PSYCHIATRIC: DO YOU HAVE THOUGHTS OF HURTING YOURSELF OR SOMEONE ELSE? NO . ARE YOU ABUSED, NEGLECTED, OR IN AN UNSAFE ENVIRONMENT? NO . ENDOCRINOLOGY: ARE YOU DIABETIC? YES, ON MEDICATION . OTHER: DO YOU NEED ANY PRESCRIPTIONS? NO . IF YES, PLEASE LIST: ____ . ANY NEW PROBLEMS WITH YOUR MEDICATIONS? NO . WHEN DID YOU LAST EAT? ____ . WHEN DID YOU LAST DRINK? ____ . WHAT DID YOU LAST DRINK? ____ . NAME OF PERSON DRIVING YOU HOME? ____ . VITAL SIGNS WT 260 LBS, HT 67.5 IN, BMI 40.12 INDEX, BP 192/104 MM HG, HR 73 /MIN, RR 18 /MIN, TEMP 97.0 F, OXYGEN SAT % 97%, NA INITIALS AW 1426, REVIEWED BY: MILIND THE NURSE KNOW ABOUT BP. EXAMINATION GENERAL EXAMINATION: PATIENT IS ALERT O X 3 AND COOPERATIVE. PRESENCE OF TRIGGER POINTS AND BANDS OF TISSUE WITH RESTRICTION OF MOVEMENT OF THE BACK. ASSESSMENTS MYALGIA, OTHER SITE - M79.18 (PRIMARY) DIABETIC POLYNEUROPATHY ASSOCIATED WITH TYPE 2 DIABETES MELLITUS - E11.42 TREATMENT MYALGIA, OTHER SITE CLINICAL NOTES: WE DISCUSSED SEVERAL ISSUES WITH MRS. GARVIN'S PAIN MANAGEMENT CASE. I WILL INCREASE THE PATIENT'S HYDROCODONE TO 3 TABLETS PER DAY AND INCREASE THE TIZANIDINE TO SEE IF THAT WILL GET HER PAIN UNDER CONTROL. ISTOP _[id number] WAS REVIEWED. I HAVE A LONG CONVERSATION WITH THE PATIENT IN THE USE OF OPIOIDS AND ITS RISKS. URINE TOXICOLOGY DONE ON 05/14/2018 SHOWS CONCURRENT RESULTS. THE PATIENT WAS REMINDED TO BRING HER MEDICATIONS WITH HER TO EVERY VISIT. THE PATIENT WILL FOLLOW UP IN 1 MONTH. INSTRUCTIONS WERE GIVEN, QUESTIONS WERE ANSWERED, PATIENT REPORTS UNDERSTANDING AND AGREES WITH THE PLAN. I, STACY BASHIR, DOCUMENTED THE ABOVE INFORMATION ACTING A SCRIBE FOR DR. VALENZUELA. I HAVE REVIEWED THE ABOVE DOCUMENT, WRITTEN BY STACY GUILLEN AND I VERIFY THAT IT IS ACCURATE. DIABETIC POLYNEUROPATHY ASSOCIATED WITH TYPE 2 DIABETES MELLITUS REFILL GABAPENTIN TABLET, 600 MG, 1 CAP, ORALLY, QID, 30 DAY(S), 120 CAPSULE, REFILLS 0 OTHERS CONTINUE HYDROCODONE-ACETAMINOPHEN TABLET, 5-325 MG, 1 TABLET NEEDED, ORALLY FOR PAIN, EVERY 6 HOURS NEEDED MDD3, 30 DAY(S), 90, REFILLS 0 REFILL TIZANIDINE HCL TABLET, 4 MG, 1 TABLET NEEDED, ORALLY, BEFORE BEDTIME MAY REPEAT IN 5 HRS MDD2, 30 DAY(S), 50, REFILLS 1 REFILL CYMBALTA CAPSULE DELAYED RELEASE PARTICLES, 60 MG, TAKE ONE CAPSULE BY MOUTH, ORALLY, BID, 30, 60, REFILLS 0 PROCEDURE CODES FA211 ESTABILISHED PATIENT [facility] FACILITY CHARGE [id number] CURRENT MEDS W/DOSAGES DOCUMENTED [id number] PAIN ASSESS POS TOOL F/U PLAN DOC DISPOSITION & COMMUNICATION FOLLOW UP 4 WEEKS ELECTRONICALLY SIGNED BY RADHA VALENZUELA MD, MD ON 06/22/2018 AT 01:07 PM EST DISCLAIMER : THIS IS A VISIT SUMMARY EXTRACTED FROM THE [employer] CHART. IT IS NOT A COPY OF THE [employer] PROGRESS NOTE. MICHAEL
== END ==
LOC: M PAIN 14:15
PROVIDERS: ATTEND Anesthesiology
DX: M79.18 Myalgia, other site (principal); E11.42 Type 2 diabetes mellitus with diabetic polyneuropathy; M54.5 Low back pain; I10 Essential (primary) hypertension; M06.9 Rheumatoid arthritis, unspecified; G43.909 Migraine, unspecified, not intractable, without status migrainosus; D50.9 Iron deficiency anemia, unspecified; E66.01 Morbid (severe) obesity due to excess calories; Z68.41 Body mass index [BMI] 40.0-44.9, adult; Z79.84 Long term (current) use of oral hypoglycemic drugs; Z79.899 Other long term (current) drug therapy

== ENCOUNTER 2018-08-10 10:03 | Emergency (ER) | payer MEDICAID, OTHER, SELFPAY ==
[~2018-08-10] VITALS: Ht 172.7 cm; Wt 116.6 kg
[2018-08-10] MEDS ORDERED: IBUP-1022 PO (10:16)
[2018-08-10] MEDS ORDERED: METF500T4 PO (10:16)
[2018-08-10] MEDS ORDERED: PERC5TAB12 PO ×3 (10:16→11:58)
[2018-08-10] MEDS ORDERED: GABA600T4 PO (10:16)
[2018-08-10] MEDS ORDERED: Tizanidine PO (10:16)
[2018-08-10] MEDS ORDERED: DULO60CA35 PO (10:16)
[2018-08-10] MEDS ORDERED: VALI5TAB PO (10:16)
[2018-08-10] MEDS ORDERED: PERCOCET 5MG/325MG TAB PO ONE (11:00)
[2018-08-10 11:59] VITALS: BP 180/91
== END 2018-08-10 12:06 | disposition home or self-care (01) ==
LOC: M ED 10:03
DX: G89.29 Other chronic pain (principal); M54.5 Low back pain; E11.9 Type 2 diabetes mellitus without complications; I10 Essential (primary) hypertension; F33.9 Major depressive disorder, recurrent, unspecified; F41.9 Anxiety disorder, unspecified; E78.5 Hyperlipidemia, unspecified; Z79.899 Other long term (current) drug therapy; Z79.84 Long term (current) use of oral hypoglycemic drugs

== ENCOUNTER → 2018-08-13 | Outpatient (CLI) | payer OTHER, MEDICAID ==
[~2018-08-13] MED LIST changes: +DULO60CA35 PO; +GABA600T4 PO; +IBUP-1022 PO; +METF500T4 PO; +PERC5TAB12 PO; +Tizanidine PO; +VALI5TAB PO
--- NOTE | 2018-08-27 00:53 | ECWPNPC ---
PATIENT NAME: HANNA GARVIN : 1955 GENDER: FEMALE VISIT DATE: 08/13/2018 DISCHARGE DATE: 08/13/18 1102 VISIT LOCKED DATE TIME: PHYSICIAN: RADHA VALENZUELA MD RESOURCE: RADHA VALENZUELA MD REASON FOR APPOINTMENT 1. W/C BACK PAIN HISTORY OF PRESENT ILLNESS HISTORY OF PRESENT ILLNESS: PAIN THE PATIENT DESCRIBES THE PAIN... 63 YEAR OLD FEMALE PATIENT WITH A HISTORY OF CHRONIC LOW BACK PAIN. THE PATIENT DESCRIBES THE PAIN ACHING, BURNING, SHARP, STABBING, AND CONTINUOUS WITH A PAIN SCORE OF 5-10/10 DEPENDING ON PHYSICAL ACTIVITY. 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 THE PATIENT IS CURRENTLY USING GABAPENTIN AND CYMBALTA TO AID IN PAIN RELIEF. THE PATIENT SAYS THAT SHE WENT TO THE EMERGENCY ROOM FOR THE PAIN WHERE THEY GAVE HER OXYCODONE AND REPORTS THAT GAVE HER RELIEF. THE PATIENT SAYS THAT SHE HAS DIFFICULTY DOING DAILY ACTIVITIES SUCH COOKING, CLEANING, AND GETTING GROCERIES DUE TO THIS PAIN. PATIENT DENIES UNEXPLAINABLE WEIGHT LOSS, FEVER, CHILLS, NEW CHANGES ON HER URINARY OR BOWEL CONTROL. FALL RISK SCREENING: SCREENING : NO FALLS IN THE PAST YEAR. CURRENT MEDICATIONS TAKING TIZANIDINE HCL 4 MG TABLET 1 TABLET NEEDED ORALLY BEFORE BEDTIME MAY REPEAT IN 5 HRS MDD2 TAKING LASIX 40 MG TABLET 1 TABLET ORALLY ONCE A DAY TAKING ATENOLOL 100 MG TABLET 1 TABLET ORALLY TWICE A DAY TAKING HYDROCHLOROTHIAZIDE 50 MG TABLET 1 TABLET ORALLY ONCE A DAY TAKING LISINOPRIL 40 MG TABLET 1 TABLET ORALLY ONCE A DAY TAKING FLEXERIL 10 MG TABLET 1 TABLET ORALLY THREE TIMES A DAY TAKING IRON 325 (65 FE) MG TABLET 1 TABLET ORALLY ONCE A DAY TAKING GLUCOMETER DIRECTED TAKING BLOOD GLUCOSE TEST - STRIP DIRECTED IN VITRO DAILY TAKING LANCETS - MISCELLANEOUS DIRECTED DAILY TAKING METFORMIN HCL 500 MG TABLET 1 TABLET WITH A MEAL ORALLY TWICE DAILY TAKING CYMBALTA 60 MG CAPSULE DELAYED RELEASE PARTICLES TAKE ONE CAPSULE BY MOUTH ORALLY BID TAKING GABAPENTIN 600 MG TABLET 1 CAP ORALLY TID TAKING HYDROCODONE-ACETAMINOPHEN 5-325 MG TABLET 1 TABLET NEEDED ORALLY FOR PAIN EVERY 6 HOURS NEEDED MDD3 NOT-TAKING ATENOLOL 100 MG TABLET TAKE ONE TABLET BY MOUTH TWICE A DAY , NOTES: DUPLICATE NOT-TAKING TOPAMAX 200 MG TABLET 1 TABLET ORALLY BEFORE BEDTIME NOT-TAKING PREMPRO 0.625-5 MG TABLET 1 TABLET ORALLY ONCE A DAY NOT-TAKING LYRICA 200 MG CAPSULE 1 CAPSULE ORALLY TWICE A DAY NOT-TAKING ATORVASTATIN CALCIUM 40 MG TABLET 1 TABLET ORALLY ONCE A DAY NOT-TAKING MACROBID 100 MG CAPSULE 1 CAPSULE WITH FOOD ORALLY EVERY 12 HRS MEDICATION LIST REVIEWED AND RECONCILED WITH THE PATIENT PAST MEDICAL HISTORY HTN RA LOW BACK PAIN MIGRAINES EDEMA IRON DEFICIENCY ANEMIA DIABETES CHRONIC BACK PAIN ALLERGIES N.K.D.A. SURGICAL HISTORY RT ANKLE ORIF, REVISED 2011, 05/13 CHOLECYSTECTOMY 2011 FAMILY HISTORY FATHER: 59 YRS, HEART ATTACK, DIAGNOSED WITH HEART DISEASE MOTHER: 58 YRS, CANCER METS UNKNOWN ORIGIN, CANCER SIBLINGS: ALIVE, 3 BROTHERS , DIABETES, HYPERTENSION SON(S): ALIVE DAUGHTER(S): ALIVE 10 BROTHER(S) , 2 SISTER(S) . 1 SON(S) , 1 DAUGHTER(S) - HEALTHY. NEGATIVE FOR ANY UROLOGIC DISEASE. SOCIAL HISTORY GENERAL: TOBACCO USE ARE YOU A:NONSMOKER LATEX QUESTIONNAIRE LATEX ALLERGY : HAVE YOU EVER DEVELOPED ANY TYPE OF REACTION AFTER HANDLING LATEX PRODUCTS SUCH RUBBER GLOVES, CONDOMS, DIAPHRAGMS, BALLOONS, SOCKS, OR UNDERWEAR?NO LATEX ALLERGY : HAVE YOU EVER DEVELOPED ANY TYPE OF REACTION DURING OR AFTER DENTAL APPOINTMENT, VAGINAL/RECTAL EXAMINATION, SURGICAL PROCEDURE, OR ANY OTHER EXPOSURE?NO LATEX RISK : HAVE YOU EVER HAD ANY DIFFICULTY BREATHING OR HIVES AFTER EATING OR HANDLING ANY FRUITS, OR VEGETABLES; SUCH KIWI, BANANAS, STONE FRUITS, OR CHESTNUTSNO LATEX RISK : DO YOU HAVE A PREVIOUS PERSONAL HISTORY OF MORE THAN NINE SURGERIES, SPINA BIFIDA, OR REPEATED CATHERTIZATIONS? NO LATEX RISK : ARE YOU FREQUENTLY EXPOSED TO LATEX PRODUCTS IN YOUR OCCUPATION?NO DATE ASKED : 08/13/2018 BMI CARE GOAL FOLLOW-UP ABOVE NORMAL BMI FOLLOW-UPDIETARY MANAGEMENT EDUCATION, GUIDANCE, AND COUNSELING ALCOHOL SCREENING DID YOU HAVE A DRINK CONTAINING ALCOHOL IN THE PAST YEAR?NO POINTS0 INTERPRETATIONNEGATIVE RECREATIONAL DRUG USE DENIES. CAFFEINE CAFFEINE USE?YES HOW OFTEN AND HOW MUCH? 1 COFFEE DAILY, OCCASIONAL SODA SEXUAL HX HAD SEX IN THE LAST 12 MONTHS (VAGINAL, ORAL, OR ANAL)?: YES, WITH: MEN ONLY, USE PROTECTION?: NO, HAVE YOU EVER HAD AN STD?: NO. HIV / HEP-C SCREENING HIV TEST OFFERED TO PATIENT:YES DATE OFFERED:05/06/2018 TEST ACCEPTED:NO HEP-C TEST OFFERED TO PATIENT:YES DATE OFFERED:05/06/2018 REASON:PATIENT DECLINED TEST ACCEPTED:NO REASON:PATIENT DECLINED BROCHURE PROVIDED TO PATIENTNO DENOMINATIONAL NO ALEVISM BELIEFS THAT WOULD IMPACT HEALTH CARE. LANGUAGE NEPALI. LEARNING BARRIERS / SPECIAL NEEDS CHANGE FROM LAST VISIT?NO BARRIERS TO LEARNING?NO HEARING IMPAIRED?NO VISION IMPAIRED?NO COGNITIVELY IMPAIRED?NO READINESS TO LEARN?YES LEARNING PREFERENCES?NO LEARNING CAPABILITIES PRESENT?YES EMOTIONAL BARRIERS?NO SPECIAL DEVICES?NO TIMBER POISONER NEEDED?NO DOMESTIC VIOLENCE NONE. OCCUPATION: DISABLED . DIET: REGULAR. EXERCISE: NONE. MARITAL STATUS: SINGLE. OTHERS AT HOME: OTHER NON-RELATIVE. PAIN CLINIC PFS, CLERGY, PUBLIC HEALTH REFERRALS HAS THE PATIENT BEEN EDUCATED REGARDING HIS/HER PLAN OF CARE?YES HAS THE PATIENT BEEN EDUCATED REGARDING PAIN, THE RISK FOR PAIN, THE IMPORTANCE OF EFFECTIVE PAIN MANAGEMENT, AND THE PAIN ASSESSMENT PROCESS?YES ADVANCE DIRECTIVE ADVANCE DIRECTIVE DISCUSSED WITH PATIENT:YES PATIENT DECLINES HCP INFORMATION AT THIS TIME. DECLINES ASSISTANCE WITH FORM. REVIEWED WITH PT 05/14/18 1149 BVREVIEWED WITH PATIENT 05/17/18 1617 JSREVIEWED WITH PT 06/07/18 1453 BVREVIEWED WITH PT 08/13/28 0930 LAS. HOSPITALIZATION/MAJOR DIAGNOSTIC PROCEDURE SURGERY RELATED REVIEW OF SYSTEMS REVIEWED BY: PROVIDER: RADHA VALENZUELA MD . CONSTITUTIONAL: ANY CHANGE IN YOUR MEDICAL CONDITION? NO . CHILLS NO . FEVER NO . INFECTION: DO YOU HAVE NEW INFECTIONS? NO . DO YOU HAVE HISTORY OF MRSA? NO . MUSCULOSKELETAL: ANY NEW PATTERNS OF PAIN OR NUMBNESS? NO . GASTROENTEROLOGY: ANY NEW CHANGE IN BOWEL CONTROL? NO . GENITOURINARY: ANY NEW CHANGE IN BLADDER CONTROL? NO . IS THERE A CHANCE YOU COULD BE ? NO . HEMATOLOGY/LYMPH: DO YOU TAKE ANY BLOOD THINNERS? (FOR EXAMPLE- COUMADIN, PLAVIX, AGGRENOX, PLATEL, PRADAXA, OR XARELTO) NO . WHEN WAS YOUR LAST DOSE? DATE: TIME: . NEUROLOGY: HAVE YOU FALLEN IN THE PAST 12 MONTHS? NO . ANY NEW EXTREMITY NUMBNESS OR WEAKNESS? NO . CARDIOLOGY: DO YOU HAVE A PACEMAKER OR DEFIBRILLATOR? NO . RESPIRATORY: HAVE YOU BEEN SICK IN THE PAST WEEK? YES PT REPORTS COLD SYMPTOMS OVER PAST WEEK NASAL CONGESTION, COUGHING, RESOLVING. . FEVER NO . FLU LIKE SYMPTOMS? NO . COUGH NO . INTEGUMENTARY: DO YOU HAVE ANY RASHES OR OPEN SORES? NO . ALLERGIC/IMMUNO: ARE YOU ALLERGIC TO IV DYE? NO . ANY NEW ALLERGIES? NO . PSYCHIATRIC: DO YOU HAVE THOUGHTS OF HURTING YOURSELF OR SOMEONE ELSE? NO . ARE YOU ABUSED, NEGLECTED, OR IN AN UNSAFE ENVIRONMENT? NO . ENDOCRINOLOGY: ARE YOU DIABETIC? NO . OTHER: DO YOU NEED ANY PRESCRIPTIONS? YES . IF YES, PLEASE LIST: ____ . ANY NEW PROBLEMS WITH YOUR MEDICATIONS? NO . WHEN DID YOU LAST EAT? ____ . WHEN DID YOU LAST DRINK? ____ . WHAT DID YOU LAST DRINK? ____ . NAME OF PERSON DRIVING YOU HOME? ____ . DO YOU HAVE ANY OTHER QUESTIONS OR CONCERNS NO . VITAL SIGNS WT 264.2 LBS, HT 67.5 IN, BMI 40.76 INDEX, BP 156/95 MM HG, HR 71 /MIN, RR 18 /MIN, TEMP 96.2 F, OXYGEN SAT % 95%, SAFE IN ENV? (Y/N) YES, NA INITIALS SC 09:20, REVIEWED BY: DAVID. EXAMINATION GENERAL EXAMINATION: PATIENT IS ALERT O X 3 AND COOPERATIVE. ANTALGIC GAIT. TENDERNESS IN THE LOW BACK AREA OVER THE SACROILIAC JOINT. FABERE TEST IS POSITIVE FOR BILATERAL SACROILIAC JOINT DYSFUNCTION. ASSESSMENTS SACROILIITIS, NOT ELSEWHERE CLASSIFIED - M46.1 (PRIMARY) TREATMENT SACROILIITIS, NOT ELSEWHERE CLASSIFIED CLINICAL NOTES: WE DISCUSSED SEVERAL ISSUES WITH MRS. GARVIN'S PAIN MANAGEMENT CASE. DUE TO THE SACROILIITIS, I WOULD LIKE TO MOVE FORWARD WITH A BILATERAL SACROILIAC JOINT BLOCK AT THIS TIME. WE DISCUSSED THE BENEFITS, RISKS, AND ALTERNATIVES OF THE INJECTION AND THE PATIENT WOULD LIKE TO PROCEED. I WILL ALSO START THE PATIENT ON OXYCODONE WITH A MAXIMUM OF 3 TABLETS PER DAY. ISTOP _#[id number] WAS REVIEWED. URINE TOXICOLOGY DONE ON 05/14/2018 SHOWS CONCURRENT RESULTS. THE PATIENT WILL FOLLOW UP IN 2 MONTHS. INSTRUCTIONS WERE GIVEN, QUESTIONS WERE ANSWERED, PATIENT REPORTS UNDERSTANDING AND AGREES WITH THE PLAN. I, STACY BASHIR, DOCUMENTED THE ABOVE INFORMATION ACTING A SCRIBE FOR DR. VLAENZUELA. I HAVE REVIEWED THE ABOVE DOCUMENT, WRITTEN BY STACY GUILLEN AND I VERIFY THAT IT IS ACCURATE. . OTHERS START OXYCODONE HCL TABLET, 5 MG, 1 TABLET NEEDED, ORALLY FOR PAIN, EVERY 8 HRS MDD3, 30 DAY(S), 80, REFILLS 0 PROCEDURES PN WORKMANS' COMP OPINION IN YOUR OPINION, WAS THE INCIDENT THAT THE PATIENT DESCRIBED THE COMPETENT MEDICAL CAUSE OF THIS INJURY/ILLNESS? YES ARE THE PATIENT'S COMPLAINTS CONSISTENT WITH HIS/HER HISTORY OF THE INJURY/ILLNESS? YES IS THE PATIENT'S HISTORY OF THE INJURY/ILLNESS CONSISTENT WITH YOUR OBJECTIVE FINDING? YES WHAT IS THE PERCENTAGE OF TEMPORARY IMPAIRMENT? MODERATE TO MARKED = 66.7% IS THE PATIENT WORKING? NO DOCTOR ON SITE: RADHA TAI MD PREVENTIVE MEDICINE PAIN CLINIC TEACHING: MEDICATIONS PRINTED AND REVIEWED INFORMATION ON NEW MEDICATION, OXYCODONE, WITH PATIENT. PATIENT VERBALIZED AN UNDERSTANDING. DINO DE LA CRUZ 08/13/2018 11:05:21 AM > . PROCEDURE TEACHING PRINTED AND REVIEWED INFORMATION ON SACROILIAC JOINT INJECTION PROCEDURE WITH PATIENT. ALSO REVIEWED PRE-PROCEDURE INSTRUCTIONS. PATIENT VERBALIZED AN UNDERSTANDING. DINO DE LA CRUZ 08/13/2018 11:03:21 AM > . PROCEDURE CODES FA211 ESTABILISHED PATIENT [facility] FACILITY CHARGE [id number] CURRENT MEDS W/DOSAGES DOCUMENTED G8730 PAIN ASSESS POS TOOL F/U PLAN DOC DISPOSITION & COMMUNICATION FOLLOW UP 2 MONTHS (REASON: W/C LOW BACK) ELECTRONICALLY SIGNED BY RADHA VALENZUELA MD, MD ON 08/26/2018 AT 09:13 AM EDT DISCLAIMER : THIS IS A VISIT SUMMARY EXTRACTED FROM THE [employer] CHART. IT IS NOT A COPY OF THE [employer] PROGRESS NOTE. SAMD
== END ==
LOC: M PAIN 09:00
PROVIDERS: ATTEND Anesthesiology
DX: M46.1 Sacroiliitis, not elsewhere classified (principal); G89.29 Other chronic pain; I10 Essential (primary) hypertension; M06.9 Rheumatoid arthritis, unspecified; G43.909 Migraine, unspecified, not intractable, without status migrainosus; D50.9 Iron deficiency anemia, unspecified; E11.9 Type 2 diabetes mellitus without complications; E66.01 Morbid (severe) obesity due to excess calories; Z68.41 Body mass index [BMI] 40.0-44.9, adult; Z79.84 Long term (current) use of oral hypoglycemic drugs; Z79.899 Other long term (current) drug therapy

== ENCOUNTER → 2018-10-05 | Outpatient (CLI) | payer OTHER, MEDICAID ==
[~2018-10-05] MED LIST changes: +BUPIVACAINE HCL 0.25% 30 ML VIAL As Ordered ONE; +CHLO125TA PO; +ISOVUE-M 300 61% 15ML VIAL (Q9967) As Ordered ONE; +LIDOCAINE 1% SDV INJ 30 ML VIAL As Ordered ONE; +METF500T13 PO; +OXYC1TAB23 PO; -PERCOCET PO; +TRIAMCINOLONE ACETONIDE SUSP 40 MG/ML VIAL (J3301) As Ordered ONE; +diazePAM 5 MG TAB As Ordered ONE; +oxyCODONE 5MG TAB As Ordered ONE
--- NOTE | 2018-10-05 15:37 | REP ---
SI joint series: Four views. History: Bilateral SI joint injection for pain. 25 seconds of fluoroscopy time is reported. Findings: A sequence of four last image hold fluoroscopically obtained spot radiographs of the SI joints document needle position associated with SI joint injection procedure. Electronically Signed by Kennedy Winslow MD 10/05/2018 03:28 P
--- NOTE | 2018-10-17 23:57 | ECWPNPC ---
PATIENT NAME: HANNA GARVIN : 1955 GENDER: FEMALE VISIT DATE: 10/05/2018 DISCHARGE DATE: 10/05/18 1528 VISIT LOCKED DATE TIME: PHYSICIAN: RADHA VALENZUELA MD RESOURCE: RADHA VALENZUELA MD REASON FOR APPOINTMENT 1. HILARY DAVENPORTJ-W/C HISTORY OF PRESENT ILLNESS HISTORY OF PRESENT ILLNESS: PAIN THE PATIENT DESCRIBES THE PAIN... FALL RISK SCREENING: SCREENING :NO FALLS REPORTED IN THE LAST YEAR CURRENT MEDICATIONS TAKING TIZANIDINE HCL 4 MG TABLET 1 TABLET NEEDED ORALLY BEFORE BEDTIME MAY REPEAT IN 5 HRS MDD2, NOTES: > 1 MONTH TAKING LASIX 40 MG TABLET 1 TABLET ORALLY ONCE A DAY, NOTES: 10/05/18399 TAKING ATENOLOL 100 MG TABLET 1 TABLET ORALLY TWICE A DAY, NOTES: 10/05/18399 TAKING HYDROCHLOROTHIAZIDE 50 MG TABLET 1 TABLET ORALLY ONCE A DAY, NOTES: 10/05/18399 TAKING LISINOPRIL 40 MG TABLET 1 TABLET ORALLY ONCE A DAY, NOTES: 10/05/18399 TAKING FLEXERIL 10 MG TABLET 1 TABLET ORALLY THREE TIMES A DAY, NOTES: 10/05/18399 TAKING IRON 325 (65 FE) MG TABLET 1 TABLET ORALLY ONCE A DAY, NOTES: 10/05/18399 TAKING GLUCOMETER DIRECTED TAKING BLOOD GLUCOSE TEST - STRIP DIRECTED IN VITRO DAILY TAKING LANCETS - MISCELLANEOUS DIRECTED DAILY TAKING METFORMIN HCL 500 MG TABLET 1 TABLET WITH A MEAL ORALLY TWICE DAILY, NOTES: 10/04/18499 TAKING CYMBALTA 60 MG CAPSULE DELAYED RELEASE PARTICLES TAKE ONE CAPSULE BY MOUTH ORALLY BID, NOTES: 10/05/18399 TAKING OXYCODONE HCL 5 MG TABLET 1 TABLET NEEDED ORALLY FOR PAIN EVERY 8 HRS MDD3, NOTES: 10/05/18399 TAKING GABAPENTIN 600 MG TABLET 1 CAP ORALLY TID, NOTES: 10/05/18399 NOT-TAKING HYDROCODONE-ACETAMINOPHEN 5-325 MG TABLET 1 TABLET NEEDED ORALLY FOR PAIN EVERY 6 HOURS NEEDED MDD3 NOT-TAKING ATENOLOL 100 MG TABLET TAKE ONE TABLET BY MOUTH TWICE A DAY , NOTES: DUPLICATE NOT-TAKING TOPAMAX 200 MG TABLET 1 TABLET ORALLY BEFORE BEDTIME NOT-TAKING PREMPRO 0.625-5 MG TABLET 1 TABLET ORALLY ONCE A DAY NOT-TAKING LYRICA 200 MG CAPSULE 1 CAPSULE ORALLY TWICE A DAY NOT-TAKING ATORVASTATIN CALCIUM 40 MG TABLET 1 TABLET ORALLY ONCE A DAY NOT-TAKING MACROBID 100 MG CAPSULE 1 CAPSULE WITH FOOD ORALLY EVERY 12 HRS MEDICATION LIST REVIEWED AND RECONCILED WITH THE PATIENT PAST MEDICAL HISTORY HTN RA LOW BACK PAIN MIGRAINES EDEMA IRON DEFICIENCY ANEMIA DIABETES CHRONIC BACK PAIN ALLERGIES N.K.D.A. SURGICAL HISTORY RT ANKLE ORIF, REVISED 2011, 05/13 CHOLECYSTECTOMY 2011 FAMILY HISTORY FATHER: 59 YRS, HEART ATTACK, DIAGNOSED WITH HEART DISEASE MOTHER: 58 YRS, CANCER METS UNKNOWN ORIGIN, CANCER SIBLINGS: ALIVE, 3 BROTHERS , DIABETES, HYPERTENSION SON(S): ALIVE DAUGHTER(S): ALIVE 10 BROTHER(S) , 2 SISTER(S) . 1 SON(S) , 1 DAUGHTER(S) - HEALTHY. NEGATIVE FOR ANY UROLOGIC DISEASE. SOCIAL HISTORY GENERAL: TOBACCO USE ARE YOU A:NONSMOKER HIV / HEP-C SCREENING HIV TEST OFFERED TO PATIENT:YES DATE OFFERED:05/06/2018 TEST ACCEPTED:NO HEP-C TEST OFFERED TO PATIENT:YES DATE OFFERED:05/06/2018 REASON:PATIENT DECLINED TEST ACCEPTED:NO REASON:PATIENT DECLINED BROCHURE PROVIDED TO PATIENTNO OTHERS AT HOME: OTHER NON-RELATIVE. DIET: REGULAR. LANGUAGE TONGAN. DOMESTIC VIOLENCE NONE. BMI CARE GOAL FOLLOW-UP ABOVE NORMAL BMI FOLLOW-UPDIETARY MANAGEMENT EDUCATION, GUIDANCE, AND COUNSELING RECREATIONAL DRUG USE DENIES. EXERCISE: NONE. LEARNING BARRIERS / SPECIAL NEEDS CHANGE FROM LAST VISIT?NO BARRIERS TO LEARNING?NO HEARING IMPAIRED?NO VISION IMPAIRED?NO COGNITIVELY IMPAIRED?NO READINESS TO LEARN?YES LEARNING PREFERENCES?NO LEARNING CAPABILITIES PRESENT?YES EMOTIONAL BARRIERS?NO SPECIAL DEVICES?NO DIRECTOR ACUTE NEEDED?NO PAIN CLINIC PFS, CLERGY, PUBLIC HEALTH REFERRALS HAS THE PATIENT BEEN EDUCATED REGARDING HIS/HER PLAN OF CARE?YES HAS THE PATIENT BEEN EDUCATED REGARDING PAIN, THE RISK FOR PAIN, THE IMPORTANCE OF EFFECTIVE PAIN MANAGEMENT, AND THE PAIN ASSESSMENT PROCESS?YES LATEX QUESTIONNAIRE LATEX ALLERGY : HAVE YOU EVER DEVELOPED ANY TYPE OF REACTION AFTER HANDLING LATEX PRODUCTS SUCH RUBBER GLOVES, CONDOMS, DIAPHRAGMS, BALLOONS, SOCKS, OR UNDERWEAR?NO LATEX ALLERGY : HAVE YOU EVER DEVELOPED ANY TYPE OF REACTION DURING OR AFTER DENTAL APPOINTMENT, VAGINAL/RECTAL EXAMINATION, SURGICAL PROCEDURE, OR ANY OTHER EXPOSURE?NO DATE ASKED : 08/13/2018 LATEX RISK : HAVE YOU EVER HAD ANY DIFFICULTY BREATHING OR HIVES AFTER EATING OR HANDLING ANY FRUITS, OR VEGETABLES; SUCH KIWI, BANANAS, STONE FRUITS, OR CHESTNUTSNO LATEX RISK : DO YOU HAVE A PREVIOUS PERSONAL HISTORY OF MORE THAN NINE SURGERIES, SPINA BIFIDA, OR REPEATED CATHERTIZATIONS? NO LATEX RISK : ARE YOU FREQUENTLY EXPOSED TO LATEX PRODUCTS IN YOUR OCCUPATION?NO CAFFEINE CAFFEINE USE?YES HOW OFTEN AND HOW MUCH? 1 COFFEE DAILY, OCCASIONAL SODA ADVANCE DIRECTIVE ADVANCE DIRECTIVE DISCUSSED WITH PATIENT:YES PATIENT DECLINES HCP INFORMATION AT THIS TIME. DECLINES ASSISTANCE WITH FORM. ANABAPTIST NO HOAHAOISM BELIEFS THAT WOULD IMPACT HEALTH CARE. MARITAL STATUS: SINGLE. ALCOHOL SCREENING DID YOU HAVE A DRINK CONTAINING ALCOHOL IN THE PAST YEAR?NO POINTS0 INTERPRETATIONNEGATIVE OCCUPATION: DISABLED. SEXUAL HX HAD SEX IN THE LAST 12 MONTHS (VAGINAL, ORAL, OR ANAL)?: YES, WITH: MEN ONLY, USE PROTECTION?: NO, HAVE YOU EVER HAD AN STD?: NO. REVIEWED WITH PT 05/14/18 1149 BVREVIEWED WITH PATIENT 05/17/18 1617 JSREVIEWED WITH PT 06/07/18 1453 BVREVIEWED WITH PT 08/13/28 0930 LASREVIEWED WITH PT 10/05/18 1337 LAS. HOSPITALIZATION/MAJOR DIAGNOSTIC PROCEDURE SURGERY RELATED REVIEW OF SYSTEMS REVIEWED BY: PROVIDER: . CONSTITUTIONAL: ANY CHANGE IN YOUR MEDICAL CONDITION? NO . CHILLS NO . FEVER NO . INFECTION: DO YOU HAVE NEW INFECTIONS? NO . DO YOU HAVE HISTORY OF MRSA? NO . MUSCULOSKELETAL: ANY NEW PATTERNS OF PAIN OR NUMBNESS? NO . GASTROENTEROLOGY: ANY NEW CHANGE IN BOWEL CONTROL? NO . GENITOURINARY: ANY NEW CHANGE IN BLADDER CONTROL? NO . IS THERE A CHANCE YOU COULD BE ? NO . HEMATOLOGY/LYMPH: DO YOU TAKE ANY BLOOD THINNERS? (FOR EXAMPLE- COUMADIN, PLAVIX, AGGRENOX, PLATEL, PRADAXA, OR XARELTO) NO . WHEN WAS YOUR LAST DOSE? DATE: TIME: . NEUROLOGY: HAVE YOU FALLEN IN THE PAST 12 MONTHS? NO . ANY NEW EXTREMITY NUMBNESS OR WEAKNESS? NO . CARDIOLOGY: DO YOU HAVE A PACEMAKER OR DEFIBRILLATOR? NO . RESPIRATORY: HAVE YOU BEEN SICK IN THE PAST WEEK? NO . FEVER NO . FLU LIKE SYMPTOMS? NO . COUGH NO . INTEGUMENTARY: DO YOU HAVE ANY RASHES OR OPEN SORES? NO . ALLERGIC/IMMUNO: ARE YOU ALLERGIC TO IV DYE? NO . ANY NEW ALLERGIES? NO . PSYCHIATRIC: DO YOU HAVE THOUGHTS OF HURTING YOURSELF OR SOMEONE ELSE? NO . ARE YOU ABUSED, NEGLECTED, OR IN AN UNSAFE ENVIRONMENT? NO . ENDOCRINOLOGY: ARE YOU DIABETIC? YES . OTHER: DO YOU NEED ANY PRESCRIPTIONS? NO . IF YES, PLEASE LIST: ____ . ANY NEW PROBLEMS WITH YOUR MEDICATIONS? NO . WHEN DID YOU LAST EAT? 10/04/18 2400 . WHEN DID YOU LAST DRINK? ____10/05/18 0400 . WHAT DID YOU LAST DRINK? ____WATER . NAME OF PERSON DRIVING YOU HOME? ____TODD MAYORGA . DO YOU HAVE ANY OTHER QUESTIONS OR CONCERNS NO . VITAL SIGNS WT 264.2 LBS, HT 67.5 IN, BMI 40.76 INDEX, BP 175/81 MM HG, HR 73 /MIN, RR 18 /MIN, TEMP 97.1 F, OXYGEN SAT % 94%, SAFE IN ENV? (Y/N) YES, NA INITIALS NH 12:41, REVIEWED BY: ASSESSMENTS SACROILIITIS, NOT ELSEWHERE CLASSIFIED - M46.1 (PRIMARY) TREATMENT SACROILIITIS, NOT ELSEWHERE CLASSIFIED [facility] FLUORO GUIDANCE (PAIN)[id number] PROCEDURES PN WORKMANS' COMP OPINION IN YOUR OPINION, WAS THE INCIDENT THAT THE PATIENT DESCRIBED THE COMPETENT MEDICAL CAUSE OF THIS INJURY/ILLNESS? YES ARE THE PATIENT'S COMPLAINTS CONSISTENT WITH HIS/HER HISTORY OF THE INJURY/ILLNESS? YES IS THE PATIENT'S HISTORY OF THE INJURY/ILLNESS CONSISTENT WITH YOUR OBJECTIVE FINDING? YES WHAT IS THE PERCENTAGE OF TEMPORARY IMPAIRMENT? MODERATE TO MARKED = 66.7% IS THE PATIENT WORKING? NO DOCTOR ON SITE: RADHA TAI MD PN SI PRE PROCEDURE DIAGNOSIS SACROILIITIS, SACROILIAC JOINT DYSFUNCTION POST PROCEDURE DIAGNOSIS SACROILIITIS, SACROILIAC JOINT DYSFUNCTION PROCEDURE BILATERAL SACROILIAC JOINT BLOCK SURGEON DR. RADHA VALENZUELA QUALITY REP NONE ANESTHESIA LOCAL PRE PROCEDURE NOTE PATIENT WITH HISTORY OF CHRONIC LOW BACK PAIN. I EVALUATED THE PATIENT AND REVIEWED THE CHART. I WENT OVER THE RISKS, ALTERNATIVES, AND BENEFITS ASSOCIATED WITH THIS PROCEDURE. THE PATIENT WOULD LIKE TO PROCEED AND GAVE CONSENT TO PERFORM THE PROCEDURE. THE PATIENT DENIES UNEXPLAINABLE WEIGHT LOSS, FEVER, CHILLS, OR NEW CHANGES IN URINARY OR BOWEL CONTROL DESCRIPTION OF PROCEDURE THE PATIENT WAS BROUGHT TO THE PROCEDURE ROOM AND PLACED IN THE PRONE POSITION. THE LUMBOSACRAL AREA WAS CLEANED WITH CHLORAPREP SOLUTION AND DRAPED ASEPTICALLY. THE PROCEDURE WAS DONE UNDER STERILE CONDITIONS. I CHECKED LATERALITY AND THE LEVEL WHERE THE PROCEDURE WAS GOING TO BE PERFORMED WITH THE PATIENT AND THE SUPPORTING STAFF AT THE MOMENT OF THE TIME OUT IN THE PROCEDURE ROOM. UNDER FLUOROSCOPIC GUIDANCE, TARGET POINT WAS SELECTED AT THE LOWER BORDER OF THE RIGHT AND LEFT SACROILIAC JOINT. TARGET POINT WAS SELECTED AFTER MEDIAL ROTATION AND TILT OF THE MAGNIFIER OF THE C-ARM. LIDOCAINE WAS USED TO NUMB THE SKIN AND SUBCUTANEOUS TISSUE BELOW IT. A SPINAL NEEDLE, 22-GAUGE, WAS ADVANCED UNDER FLUOROSCOPIC GUIDANCE AND FOLLOWING PATIENT FEEDBACK UNTIL THE TARGET AREA WAS TOUCHED. THE POSITION OF THE NEEDLE WAS VERIFIED WITH AP AND LATERAL VIEWS. AFTER PROPER POSITION OF THE NEEDLE WAS ACHIEVED, ISOVUE M DYE 30%, 0.25 ML, WAS INJECTED SHOWING SPREAD OF THE DYE. THEN, A SOLUTION OF 20 MG OF KENALOG WAS INJECTED IN RIGHT AND LEFT JOINT WITH 3 ML OF BUPIVACAINE 0.125%. THERE WAS NO EVIDENCE OF BLOOD, PARESTHESIA OR CEREBROSPINAL FLUID DURING THE PROCEDURE. THE PATIENT WAS SENT TO THE RECOVERY ROOM. THE PATIENT WAS MOVING THE EXTREMITIES AND DOING WELL. THERE WAS NO COMPLICATION DURING THE PROCEDURE. FLUOROSCOPY TIME WAS 25 SECONDS POST PROCEDURE NOTE THE PATIENT WILL BE SEEN IN A FOLLOW UP IN THE NEXT FEW WEEKS. INSTRUCTIONS WERE GIVEN, QUESTIONS WERE ANSWERED, AND THE PATIENT EXPRESSED UNDERSTANDING AND AGREED WITH THE PLAN. I, STACY BASHIR, DOCUMENTED THE ABOVE INFORMATION ACTING A SCRIBE FOR DR. VALENZUELA. I HAVE REVIEWED THE ABOVE DOCUMENT, WRITTEN BY STACY GUILLEN AND I VERIFY THAT IT IS ACCURATE. PROCEDURE CODES 6045F RADXPS IN END [id number] PXD [id number] INJECT SACROILIAC JOINT, MODIFIERS: 50 DISPOSITION & COMMUNICATION FOLLOW UP 3 WEEKS ELECTRONICALLY SIGNED BY RADHA VALENZUELA MD, MD ON 10/17/2018 AT 07:38 PM EDT DISCLAIMER : THIS IS A VISIT SUMMARY EXTRACTED FROM THE [employer] CHART. IT IS NOT A COPY OF THE [employer] PROGRESS NOTE. MTDD
== END ==
LOC: M PAIN 12:30
PROVIDERS: ATTEND Anesthesiology
DX: G89.29 Other chronic pain (principal); M46.1 Sacroiliitis, not elsewhere classified; E11.9 Type 2 diabetes mellitus without complications; I10 Essential (primary) hypertension; M06.9 Rheumatoid arthritis, unspecified; G43.909 Migraine, unspecified, not intractable, without status migrainosus; E66.01 Morbid (severe) obesity due to excess calories; Z68.41 Body mass index [BMI] 40.0-44.9, adult; Z79.84 Long term (current) use of oral hypoglycemic drugs; Z79.891 Long term (current) use of opiate analgesic; Z79.899 Other long term (current) drug therapy
CPT/HCPCS: G0260; J3301; Q9967

== ENCOUNTER 2018-10-15 10:41 | Emergency (ER) | payer OTHER, MEDICAID ==
[~2018-10-15] VITALS: Ht 172.7 cm; Wt 119.1 kg
[~2018-10-15 10:41] MED LIST changes: -CHLO125TA PO; -METF500T13 PO
[2018-10-15 11:47] LABS: BASO # 0.1 10^3/uL (0.0-0.2); BASO % 0.7 % (0.0-1.0); EOS # 0.2 10^3/uL (0.0-0.50); LYMPH # 1.5 10^3/uL (1.5-4.5); LYMPH % 9.9 % (24.0-44.0); MEAN CORPUSCULAR HEMOGLOBIN 27.8 pg (27.0-33.0); MEAN CORPUSCULAR HGB CONC 31.9 g/dl (32.0-36.5); MEAN CORPUSCULAR VOLUME 87.2 fl (80.0-96.0); MONO # 1.3 10^3/uL (0.0-0.8); MONO % 8.3 % (0.0-5.0); NEUTROPHILS # 12.4 10^3/uL (1.8-7.7); NEUTROPHILS % 79.7 % (36.0-66.0); PLATELET COUNT, AUTOMATED 401 10^3/uL (150-450); RED BLOOD COUNT 5.39 10^6/uL (4.00-5.40); WHITE BLOOD COUNT 15.6 10^3/uL (4.0-10.0)
[2018-10-15] MEDS ORDERED: ONDANSETRON 4MG/2ML VIAL (J2405) IV ONE (12:00)
[2018-10-15] MEDS: MORPHINE 4 MG/ML 1ML VIAL/SYRINGE (J2270) IV PRN ×2 (12:08→13:00)
[2018-10-15 12:11] LABS: ALT/SGPT 22 U/L (12-78); BILIRUBIN,TOTAL 0.6 MG/DL (0.2-1.0); BLOOD UREA NITROGEN 17 MG/DL (7-18); CARBON DIOXIDE LEVEL 30 MEQ/L (21-32); CHLORIDE LEVEL 103 MEQ/L (98-107); CREATININE FOR GFR 0.77 MG/DL (0.55-1.30); GLOMERULAR FILTRATION RATE > 60.0 (>45); GLUCOSE, FASTING 182 MG/DL (70-100); POTASSIUM SERUM 3.1 MEQ/L (3.5-5.1); SODIUM LEVEL 139 MEQ/L (136-145); TOTAL PROTEIN 8.4 GM/DL (6.4-8.2)
[2018-10-15 12:42] LABS: HEMOGLOBIN A1c 7.3 %
[2018-10-15] MEDS ORDERED: POTASSIUM CHLORIDE 10 MEQ SR TABLET PO ONE (12:45)
[2018-10-15] MEDS ORDERED: METF500T13 PO (13:14)
[2018-10-15 13:30] VITALS: BP 191/92
[2018-10-15] MEDS ORDERED: CHLO125TA PO (13:37)
--- NOTE | 2018-10-16 17:38 | ECGEPIP ---
Stationary ECG Study [facility] - ED Test Date: 2018-10-15 Pat Name: HANNA GARVIN Department: Room: - Gender: F [employer] Car Load[employer]: [place] : 1955 Requested By: Alisha Lopez Order Number: [id number] Reading MD: Alisha Lopez Measurements Intervals [place] Rate: 106 P: 19 TX: 149 QRS: -17 QRSD: 96 T: 43 QT: 339 QTc: 452 Interpretive Statements SINUS TACHYCARDIA MODERATE VOLTAGE CRITERIA FOR LVH, CONSIDER NORMAL VARIANT NSTTW ABNORMALITY ABNORMAL RHYTHM ECG Electronically Signed On 10-16-2018 17:38:23 EDT by Alisha Lopez
== END 2018-10-15 13:58 | disposition home or self-care (01) ==
LOC: M ED 10:41
DX: I10 Essential (primary) hypertension (principal); E11.9 Type 2 diabetes mellitus without complications; M54.5 Low back pain; R00.0 Tachycardia, unspecified; R94.31 Abnormal electrocardiogram [ECG] [EKG]; D50.9 Iron deficiency anemia, unspecified; G43.909 Migraine, unspecified, not intractable, without status migrainosus; M06.9 Rheumatoid arthritis, unspecified; Z79.899 Other long term (current) drug therapy
CPT/HCPCS: 36415; 80053; 83036; 85025; 93005; 96374; 96375; 96376; 99284; J2270; J2405

== ENCOUNTER → 2018-10-15 | Outpatient (CLI) | payer OTHER, MEDICAID ==
[~2018-10-15] MED LIST changes: -BUPIVACAINE HCL 0.25% 30 ML VIAL As Ordered ONE; -ISOVUE-M 300 61% 15ML VIAL (Q9967) As Ordered ONE; -LIDOCAINE 1% SDV INJ 30 ML VIAL As Ordered ONE; -TRIAMCINOLONE ACETONIDE SUSP 40 MG/ML VIAL (J3301) As Ordered ONE; -diazePAM 5 MG TAB As Ordered ONE; -oxyCODONE 5MG TAB As Ordered ONE
--- NOTE | 2018-10-25 00:35 | ECWPNPC ---
PATIENT NAME: HANNA GARVIN : 1955 GENDER: FEMALE VISIT DATE: 10/15/2018 DISCHARGE DATE: 10/15/18 1030 VISIT LOCKED DATE TIME: PHYSICIAN: RADHA VALENZUELA MD RESOURCE: RADHA VALENZUELA MD REASON FOR APPOINTMENT 1. W/C LOW BACK HISTORY OF PRESENT ILLNESS HISTORY OF PRESENT ILLNESS: PAIN THE PATIENT DESCRIBES THE PAIN... 63 YEAR OLD FEMALE PATIENT WITH A HISTORY OF CHRONIC LOW BACK PAIN. THE PATIENT DESCRIBES THE PAIN ACHING, BURNING, STABBING, SHOOTING, TENDER, SHARP, AND CONTINUOUS WITH A PAIN SCORE OF 7-9/10 DEPENDING ON PHYSICAL ACTIVITY. 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 THE PATIENT HAD A BILATERAL SACROILIAC JOINT BLOCK DONE ON 10/05/2018, WHICH SHE STATES DID NOT HELP WITH HER PAIN. THE PATIENT SAYS THAT GABAPENTIN AND CYMBALTA HELP WITH THE PAIN. THE PATIENT ALSO SAYS SHE STARTED USING OXYCODONE BUT IT GAVE HER MANY SIDE EFFECTS INCLUDING NAUSEA AND DIARRHEA, AND THAT HYDROCODONE WORKED BETTER FOR HER. THE PATIENT SAID THE PAIN IS AFFECTING HER ABILITY TO PERFORM HER DAILY ACTIVITIES SUCH COOKING, CLEANING, AND GROCERY SHOPPING, AND IT IS ALSO AFFECTING HER SLEEP. PATIENT DENIES UNEXPLAINABLE WEIGHT LOSS, FEVER, CHILLS, NEW CHANGES ON HER URINARY OR BOWEL CONTROL. FALL RISK SCREENING: SCREENING :NO FALLS REPORTED IN THE LAST YEAR CURRENT MEDICATIONS TAKING TIZANIDINE HCL 4 MG TABLET 1 TABLET NEEDED ORALLY BEFORE BEDTIME MAY REPEAT IN 5 HRS MDD2 TAKING LASIX 40 MG TABLET 1 TABLET ORALLY ONCE A DAY TAKING ATENOLOL 100 MG TABLET 1 TABLET ORALLY TWICE A DAY TAKING HYDROCHLOROTHIAZIDE 50 MG TABLET 1 TABLET ORALLY ONCE A DAY TAKING LISINOPRIL 40 MG TABLET 1 TABLET ORALLY ONCE A DAY TAKING FLEXERIL 10 MG TABLET 1 TABLET ORALLY THREE TIMES A DAY TAKING IRON 325 (65 FE) MG TABLET 1 TABLET ORALLY ONCE A DAY TAKING GLUCOMETER DIRECTED TAKING BLOOD GLUCOSE TEST - STRIP DIRECTED IN VITRO DAILY TAKING LANCETS - MISCELLANEOUS DIRECTED DAILY TAKING METFORMIN HCL 500 MG TABLET 1 TABLET WITH A MEAL ORALLY TWICE DAILY TAKING CYMBALTA 60 MG CAPSULE DELAYED RELEASE PARTICLES TAKE ONE CAPSULE BY MOUTH ORALLY BID TAKING OXYCODONE HCL 5 MG TABLET 1 TABLET NEEDED ORALLY FOR PAIN EVERY 8 HRS MDD3 TAKING GABAPENTIN 600 MG TABLET 1 CAP ORALLY TID NOT-TAKING HYDROCODONE-ACETAMINOPHEN 5-325 MG TABLET 1 TABLET NEEDED ORALLY FOR PAIN EVERY 6 HOURS NEEDED MDD3 NOT-TAKING ATENOLOL 100 MG TABLET TAKE ONE TABLET BY MOUTH TWICE A DAY , NOTES: DUPLICATE NOT-TAKING TOPAMAX 200 MG TABLET 1 TABLET ORALLY BEFORE BEDTIME NOT-TAKING PREMPRO 0.625-5 MG TABLET 1 TABLET ORALLY ONCE A DAY NOT-TAKING LYRICA 200 MG CAPSULE 1 CAPSULE ORALLY TWICE A DAY NOT-TAKING ATORVASTATIN CALCIUM 40 MG TABLET 1 TABLET ORALLY ONCE A DAY NOT-TAKING MACROBID 100 MG CAPSULE 1 CAPSULE WITH FOOD ORALLY EVERY 12 HRS MEDICATION LIST REVIEWED AND RECONCILED WITH THE PATIENT PAST MEDICAL HISTORY HTN RA LOW BACK PAIN MIGRAINES EDEMA IRON DEFICIENCY ANEMIA DIABETES CHRONIC BACK PAIN ALLERGIES N.K.D.A. SURGICAL HISTORY RT ANKLE ORIF, REVISED 2011, 05/13 CHOLECYSTECTOMY 2011 FAMILY HISTORY FATHER: 59 YRS, HEART ATTACK, DIAGNOSED WITH HEART DISEASE MOTHER: 58 YRS, CANCER METS UNKNOWN ORIGIN, CANCER SIBLINGS: ALIVE, 3 BROTHERS , DIABETES, HYPERTENSION SON(S): ALIVE DAUGHTER(S): ALIVE 10 BROTHER(S) , 2 SISTER(S) . 1 SON(S) , 1 DAUGHTER(S) - HEALTHY. NEGATIVE FOR ANY UROLOGIC DISEASE. SOCIAL HISTORY GENERAL: TOBACCO USE ARE YOU A:NONSMOKER HIV / HEP-C SCREENING HIV TEST OFFERED TO PATIENT:YES DATE OFFERED:05/06/2018 TEST ACCEPTED:NO HEP-C TEST OFFERED TO PATIENT:YES DATE OFFERED:05/06/2018 REASON:PATIENT DECLINED TEST ACCEPTED:NO REASON:PATIENT DECLINED BROCHURE PROVIDED TO PATIENTNO OTHERS AT HOME: OTHER NON-RELATIVE. DIET: REGULAR. LANGUAGE DANISH. DOMESTIC VIOLENCE NONE. BMI CARE GOAL FOLLOW-UP ABOVE NORMAL BMI FOLLOW-UPDIETARY MANAGEMENT EDUCATION, GUIDANCE, AND COUNSELING RECREATIONAL DRUG USE DENIES. EXERCISE: NONE. LEARNING BARRIERS / SPECIAL NEEDS CHANGE FROM LAST VISIT?NO BARRIERS TO LEARNING?NO HEARING IMPAIRED?NO VISION IMPAIRED?NO COGNITIVELY IMPAIRED?NO READINESS TO LEARN?YES LEARNING PREFERENCES?NO LEARNING CAPABILITIES PRESENT?YES EMOTIONAL BARRIERS?NO SPECIAL DEVICES?NO ADVERTISING CONSULTANT NEEDED?NO PAIN CLINIC PFS, CLERGY, PUBLIC HEALTH REFERRALS HAS THE PATIENT BEEN EDUCATED REGARDING HIS/HER PLAN OF CARE?YES HAS THE PATIENT BEEN EDUCATED REGARDING PAIN, THE RISK FOR PAIN, THE IMPORTANCE OF EFFECTIVE PAIN MANAGEMENT, AND THE PAIN ASSESSMENT PROCESS?YES LATEX QUESTIONNAIRE LATEX ALLERGY : HAVE YOU EVER DEVELOPED ANY TYPE OF REACTION AFTER HANDLING LATEX PRODUCTS SUCH RUBBER GLOVES, CONDOMS, DIAPHRAGMS, BALLOONS, SOCKS, OR UNDERWEAR?NO LATEX ALLERGY : HAVE YOU EVER DEVELOPED ANY TYPE OF REACTION DURING OR AFTER DENTAL APPOINTMENT, VAGINAL/RECTAL EXAMINATION, SURGICAL PROCEDURE, OR ANY OTHER EXPOSURE?NO DATE ASKED : 08/13/2018 LATEX RISK : HAVE YOU EVER HAD ANY DIFFICULTY BREATHING OR HIVES AFTER EATING OR HANDLING ANY FRUITS, OR VEGETABLES; SUCH KIWI, BANANAS, STONE FRUITS, OR CHESTNUTSNO LATEX RISK : DO YOU HAVE A PREVIOUS PERSONAL HISTORY OF MORE THAN NINE SURGERIES, SPINA BIFIDA, OR REPEATED CATHERTIZATIONS? NO LATEX RISK : ARE YOU FREQUENTLY EXPOSED TO LATEX PRODUCTS IN YOUR OCCUPATION?NO CAFFEINE CAFFEINE USE?YES HOW OFTEN AND HOW MUCH? 1 COFFEE DAILY, OCCASIONAL SODA ADVANCE DIRECTIVE ADVANCE DIRECTIVE DISCUSSED WITH PATIENT:YES PATIENT DECLINES HCP INFORMATION AT THIS TIME. DECLINES ASSISTANCE WITH FORM. YARSANISM NO CONFUCIANISM BELIEFS THAT WOULD IMPACT HEALTH CARE. MARITAL STATUS: SINGLE. ALCOHOL SCREENING DID YOU HAVE A DRINK CONTAINING ALCOHOL IN THE PAST YEAR?NO POINTS0 INTERPRETATIONNEGATIVE OCCUPATION: DISABLED. SEXUAL HX HAD SEX IN THE LAST 12 MONTHS (VAGINAL, ORAL, OR ANAL)?: YES, WITH: MEN ONLY, USE PROTECTION?: NO, HAVE YOU EVER HAD AN STD?: NO. REVIEWED WITH PT 05/14/18 1149 BVREVIEWED WITH PATIENT 05/17/18 1617 JSREVIEWED WITH PT 06/07/18 1453 BVREVIEWED WITH PT 08/13/28 0930 LASREVIEWED WITH PT 10/05/18 1337 LASREVIEWED WITH PATIENT 10/15/18 0954 JS. HOSPITALIZATION/MAJOR DIAGNOSTIC PROCEDURE SURGERY RELATED REVIEW OF SYSTEMS REVIEWED BY: PROVIDER: RADHA VALENZUELA MD . CONSTITUTIONAL: ANY CHANGE IN YOUR MEDICAL CONDITION? YES, PATIENT STATES DIFFICULTY BREATHING, HEART FEELS LIKE IT IS RACING, AND SHE HAS BEEN SHAKEY FOR THE PAST COUPLE OF DAYS. FSBS PERFORMED AT THIS TIME, 211. DR. VALENZUELA NOTIFIED OF ALL NEW SYMPTOMS . CHILLS NO . FEVER NO . INFECTION: DO YOU HAVE NEW INFECTIONS? NO . DO YOU HAVE HISTORY OF MRSA? NO . MUSCULOSKELETAL: ANY NEW PATTERNS OF PAIN OR NUMBNESS? YES, STATES WORSENING PAIN, KEEPING HER UP AT NIGHT. SHE'S BEEN UNABLE TO SLEEP . GASTROENTEROLOGY: ANY NEW CHANGE IN BOWEL CONTROL? YES, STATES DIARRHEA . GENITOURINARY: ANY NEW CHANGE IN BLADDER CONTROL? NO . IS THERE A CHANCE YOU COULD BE ? NO . HEMATOLOGY/LYMPH: DO YOU TAKE ANY BLOOD THINNERS? (FOR EXAMPLE- COUMADIN, PLAVIX, AGGRENOX, PLATEL, PRADAXA, OR XARELTO) NO . WHEN WAS YOUR LAST DOSE? DATE: TIME: . NEUROLOGY: HAVE YOU FALLEN IN THE PAST 12 MONTHS? NO . ANY NEW EXTREMITY NUMBNESS OR WEAKNESS? YES, STATES NUMBNESS AND EXTREME WEAKNESS IN BILATERAL LEGS . CARDIOLOGY: DO YOU HAVE A PACEMAKER OR DEFIBRILLATOR? NO . RESPIRATORY: HAVE YOU BEEN SICK IN THE PAST WEEK? NO . FEVER NO . FLU LIKE SYMPTOMS? NO . COUGH NO . INTEGUMENTARY: DO YOU HAVE ANY RASHES OR OPEN SORES? NO . ALLERGIC/IMMUNO: ARE YOU ALLERGIC TO IV DYE? NO . ANY NEW ALLERGIES? NO . PSYCHIATRIC: DO YOU HAVE THOUGHTS OF HURTING YOURSELF OR SOMEONE ELSE? NO . ARE YOU ABUSED, NEGLECTED, OR IN AN UNSAFE ENVIRONMENT? NO . ENDOCRINOLOGY: ARE YOU DIABETIC? YES, FSBS 211 AT THIS TIME . OTHER: DO YOU NEED ANY PRESCRIPTIONS? YES . IF YES, PLEASE LIST: ____WOULD LIKE TO SWITCH BACK TO HYDROCODONE . ANY NEW PROBLEMS WITH YOUR MEDICATIONS? YES, PATIENT HAS BEEN HAVING N/V/D SINCE SWITCHING TO THE OXYCODONE. PATIENT IN EXTREME PAIN DUE TO NOT BEING ABLE TO TAKE THE OXYCODONE. . WHEN DID YOU LAST EAT? ____ . WHEN DID YOU LAST DRINK? ____ . WHAT DID YOU LAST DRINK? ____ . NAME OF PERSON DRIVING YOU HOME? ____ . DO YOU HAVE ANY OTHER QUESTIONS OR CONCERNS NO . VITAL SIGNS WT 249.4 LBS, HT 67.5 IN, BMI 38.48 INDEX, BP 141/110 MM HG, HR 118 /MIN, RR 18 /MIN, TEMP 96.7 F, OXYGEN SAT % 97%, SAFE IN ENV? (Y/N) YES, NA INITIALS SC 09:45, REVIEWED BY: JULES DID PT.S BP MANUAL10/15/18 DISCUSSED PATIENT'S ELEVATED BP WITH PATIENT, STATES SHE'S NOT FEELING WELL, HAVING TROUBLE BREATHING, HAS BEEN HAVING N/V/D. WILL NOTIFY DR. VALENZUELA. JS. EXAMINATION GENERAL EXAMINATION: PATIENT IS ALERT O X 3 AND COOPERATIVE. PATIENT APPEARS UNCOMFORTABLE SITTING. ELEVATED HEART RATE DUE TO HIGH BLOOD PRESSURE AND TACHYCARDIA. MRI OF THE LUMBAR SPINE DONE ON 04/23/2018 SHOWS DISC EXTRUSIONS AT MULTIPLE LEVELS. ASSESSMENTS INTERVERTEBRAL DISC DISORDER WITH RADICULOPATHY OF LUMBAR REGION - M51.16 (PRIMARY) INTERVERTEBRAL DISC DISORDER WITH RADICULOPATHY OF LUMBOSACRAL REGION - M51.17 SPINAL STENOSIS OF LUMBAR REGION, UNSPECIFIED WHETHER NEUROGENIC CLAUDICATION PRESENT - M48.061 TREATMENT INTERVERTEBRAL DISC DISORDER WITH RADICULOPATHY OF LUMBAR REGION CLINICAL NOTES: WE DISCUSSED SEVERAL ISSUES WITH MS. GARVIN'S PAIN MANAGEMENT CASE. THE PATIENT IS EXPERIENCING TACHYCARDIA AND HAS AN ELEVATED HIGH BLOOD PRESSURE AT THE APPOINTMENT. I AM REFERRING THE PATIENT TO THE ER TO RECEIVE TREATMENT. I WILL INCREASE THE PATIENT'S HYDROCODONE FROM 5 MG TO 7.5-325 MG UP TO 3 TABLETS PER DAY AND 90 PER MONTH. I REVIEWED ISTOP __# [id number]. UTOX DONE ON 05/14/2018 SHOWS CONCURRENT RESULTS. THE PATIENT WILL FOLLOW UP IN 1 MONTH AND WAS ADVISED TO CALL IF NEED TO BE SEEN SOONER. INSTRUCTIONS WERE GIVEN, QUESTIONS WERE ANSWERED, PATIENT REPORTS UNDERSTANDING AND AGREES WITH THE PLAN. I, ANNABEL WOODY, DOCUMENTED THE ABOVE INFORMATION ACTING A SCRIBE FOR DR. VALENZUELA. I HAVE REVIEWED THE ABOVE DOCUMENT, WRITTEN BY ANNABEL GUILLEN AND I VERIFY THAT IT IS ACCURATE. . OTHERS REFILL HYDROCODONE-ACETAMINOPHEN TABLET, 7.5-325 MG, 1 TABLET NEEDED, ORALLY, EVERY 6 HOURS NEEDED MDD3, 30 DAY(S), 90, REFILLS 0 PROCEDURES PN WORKMANS' COMP OPINION IN YOUR OPINION, WAS THE INCIDENT THAT THE PATIENT DESCRIBED THE COMPETENT MEDICAL CAUSE OF THIS INJURY/ILLNESS? YES ARE THE PATIENT'S COMPLAINTS CONSISTENT WITH HIS/HER HISTORY OF THE INJURY/ILLNESS? YES IS THE PATIENT'S HISTORY OF THE INJURY/ILLNESS CONSISTENT WITH YOUR OBJECTIVE FINDING? YES WHAT IS THE PERCENTAGE OF TEMPORARY IMPAIRMENT? MODERATE TO MARKED = 66.7% IS THE PATIENT WORKING? NO DOCTOR ON SITE: RADHA TAI MD PROCEDURE CODES FA211 ESTABILISHED PATIENT [facility] CHARGE [id number] CURRENT MEDS W/DOSAGES DOCUMENTED G8730 PAIN ASSESS POS TOOL F/U PLAN DOC DISPOSITION & COMMUNICATION FOLLOW UP 1 MONTH (REASON: MEDS) ELECTRONICALLY SIGNED BY RADHA VALENZUELA MD, MD ON 10/24/2018 AT 08:53 AM EDT DISCLAIMER : THIS IS A VISIT SUMMARY EXTRACTED FROM THE [employer] CHART. IT IS NOT A COPY OF THE [employer] PROGRESS NOTE. MICHAEL
== END ==
LOC: M PAIN 09:30
PROVIDERS: ATTEND Anesthesiology
DX: M51.16 Intervertebral disc disorders with radiculopathy, lumbar region (principal); M51.17 Intervertebral disc disorders with radiculopathy, lumbosacral region; M48.061 Spinal stenosis, lumbar region without neurogenic claudication; G89.29 Other chronic pain; I10 Essential (primary) hypertension; M06.9 Rheumatoid arthritis, unspecified; G43.909 Migraine, unspecified, not intractable, without status migrainosus; E11.9 Type 2 diabetes mellitus without complications; D50.9 Iron deficiency anemia, unspecified; Z79.84 Long term (current) use of oral hypoglycemic drugs; Z79.899 Other long term (current) drug therapy

== ENCOUNTER → 2018-11-15 | Outpatient (CLI) | payer OTHER, MEDICAID ==
[~2018-11-15] MED LIST changes: +CHLO125TA PO; +METF500T13 PO
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
== END ==
LOC: M PAIN 10:45
PROVIDERS: ATTEND Anesthesiology
DX: M51.16 Intervertebral disc disorders with radiculopathy, lumbar region (principal); M51.17 Intervertebral disc disorders with radiculopathy, lumbosacral region; I10 Essential (primary) hypertension; M06.9 Rheumatoid arthritis, unspecified; G43.909 Migraine, unspecified, not intractable, without status migrainosus; D50.9 Iron deficiency anemia, unspecified; R60.9 Edema, unspecified; E11.9 Type 2 diabetes mellitus without complications; Z79.84 Long term (current) use of oral hypoglycemic drugs; Z79.891 Long term (current) use of opiate analgesic; Z79.899 Other long term (current) drug therapy

== ENCOUNTER 2019-03-07 13:07 | Inpatient (IN) | payer OTHER ==
[~2019-03-07] VITALS: Ht 175.3 cm; Wt 115.0 kg
[~2019-03-07 13:07] MED LIST changes: +METF-791 PO; -METF500T4 PO
[2019-03-07] MEDS ORDERED: TIZA4TAB4 PO (13:27)
[2019-03-07] MEDS ORDERED: LISINOPRIL 40 MG TAB PO ONE (14:00)
[2019-03-07] MEDS ORDERED: CHLORTHALIDONE 25 MG TAB PO ONE (14:00)
[2019-03-07] MEDS: NS 1,000 ML IV SCH ×2 (14:00→14:15)
[2019-03-07] MEDS ORDERED: ATENOLOL 50 MG TAB PO ONE (14:00)
[2019-03-07 14:32] LABS: VENOUS BASE EXCESS 2.4 (-2.0-2.0); VENOUS O2 SATURATION 86.8 % (60.0-80.0); VENOUS PARTIAL PRESSURE CO2 46.7 mmHg (38.0-50.0); VENOUS PARTIAL PRESSURE O2 51.4 mmHg (30.0-50.0); VENOUS PH 7.395 UNITS (7.330-7.430); VENOUS STANDARD HCO3 26.3 MEQ/L; VENOUS TOTAL CO2 29.4 MEQ/L (24.0-28.0)
[2019-03-07 14:33] LABS: BASO # 0.1 10^3/uL (0.0-0.2); BASO % 0.8 % (0.0-1.0); EOS # 0.1 10^3/uL (0.0-0.5); EOS % 0.7 % (0.0-3.0); HEMATOCRIT 44.8 % (36.0-47.0); HEMOGLOBIN 14.7 g/dl (12.0-15.5); LYMPH # 1.2 10^3/uL (1.5-5.0); LYMPH % 11.1 % (24.0-44.0); MEAN CORPUSCULAR HEMOGLOBIN 28.8 pg (27.0-33.0); MEAN CORPUSCULAR HGB CONC 32.8 g/dl (32.0-36.5); MEAN CORPUSCULAR VOLUME 87.8 fl (80.0-96.0); MONO # 0.5 10^3/uL (0.0-0.8); MONO % 4.9 % (0.0-5.0); NEUTROPHILS % 82.2 % (36.0-66.0); PLATELET COUNT, AUTOMATED 387 10^3/uL (150-450)
[2019-03-07] MEDS ORDERED: MORPHINE 4 MG/ML 1ML VIAL/SYRINGE (J2270) IV PRN (14:45)
[2019-03-07] MEDS ORDERED: ONDANSETRON 4MG/2ML VIAL (J2405) IV ONE (14:45)
[2019-03-07] MEDS ORDERED: KETOROLAC 30 MG/ML VIAL (J1885) IV ONE (14:45)
[2019-03-07 15:05] LABS: ACETAMINOPHEN LEVEL < 2.0 UG/ML (10.0-30.0); ALT/SGPT 21 U/L (12-78); BILIRUBIN,DIRECT < 0.1 MG/DL (0.0-0.2); BILIRUBIN,TOTAL 0.4 MG/DL (0.2-1.0); BLOOD UREA NITROGEN 12 MG/DL (7-18); C REACTIVE PROTEIN QUANTITATIV 0.57 MG/DL (0.00-0.30); CALCIUM LEVEL 8.9 MG/DL (8.8-10.2); CARBON DIOXIDE LEVEL 30 MEQ/L (21-32); CHLORIDE LEVEL 102 MEQ/L (98-107); CPK CREATINE PHOSPHOKINASE 40 U/L (26-192); CREATININE FOR GFR 0.67 MG/DL (0.55-1.30); ETHYL ALCOHOL (ETHANOL) < 0.003 % (0.000-0.010); GLOMERULAR FILTRATION RATE > 60.0 (>45); GLUCOSE, FASTING 178 MG/DL (70-100); POTASSIUM SERUM 3.9 MEQ/L (3.5-5.1); SALICYLATE LEVEL < 1.7 MG/DL (5.0-30.0); SODIUM LEVEL 139 MEQ/L (136-145); TOTAL PROTEIN 7.8 GM/DL (6.4-8.2)
[2019-03-07 15:11] LABS: ERYTHROCYTE SEDIMENTATION RATE 12 mm/hr (0-30)
[2019-03-07 16:00] LABS: INR 1.03; PROTHROMBIN TIME 13.2 SECONDS (11.8-14.0)
[2019-03-07] MEDS ORDERED: DULO1CAP6 PO (16:32)
[2019-03-07] MEDS ORDERED: EXCETAB33 PO (16:32)
[2019-03-07] MEDS ORDERED: HYDR-4517 PO (16:32)
[2019-03-07] MEDS ORDERED: ACETAMINOPHEN TAB 650MG DOSE (2X325MG) PO PRN (17:30)
[2019-03-07] MEDS ORDERED: PERCOCET 5MG/325MG TAB PO PRN (17:30)
[2019-03-07] MEDS ORDERED: MOM 30ML SUSPENSION UDC PO PRN (17:30)
[2019-03-07] MEDS ORDERED: MAALOX 30 ML SUSP *UDC PO PRN (17:30)
[2019-03-07] MEDS ORDERED: IPRATROPIUM 0.5MG/ALBUTEROL 2.5MG INH SOL UD 3ML (DUONEB)(J7620) As Ordered ONE (17:43)
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
[2019-03-07] MEDS ORDERED: EXCEDRIN MIGRAINE TABLET PO PRN (17:45)
[2019-03-07] MEDS ORDERED: GLUCOSE 4 GM CHEW TABLET PO PRN (17:45)
[2019-03-07] MEDS ORDERED: DEXTROSE 50% 50 ML SYRINGE IV PRN (17:45)
[2019-03-07] MEDS ORDERED: GLUCAGON FOR INJ 1 MG VIAL (J1610) SC PRN (17:45)
--- NOTE | 2019-03-07 18:35 | REP ---
MRI lumbar spine without contrast: History: Pain weakness, urinary hesitancy. Rule out cauda equina compression. No comparison lumbar spine imaging. Technique: Sagittal and axial T1 and T2-weighted scans are acquired in the usual fashion with and without fat saturation. Sequences include spin echo, turbo spin-echo, and STIR imaging sequences. MRI findings: There is straightening of the normal lumbar lordosis. No extra vertebral abnormality is observed. Cortical and medullary bone signal intensity are normal except on either side of the L2-3 disc where there are reactive marrow sclerotic changes. There is no evidence of spondylolysis or spondylolisthesis. The tip of the conus medullaris is normal in position and appearance at L1. There is no evidence of cauda equina compression. Axial and sagittal images at the L1-2 disc level demonstrate mild diffuse disc bulging which indents the ventral margin of the thecal sac. No central canal stenosis is seen. No neural foraminal narrowing is seen. L2-3, there is moderate diffuse disc bulging indenting the ventral margin of the thecal sac. Canal size is borderline at L2-3. Midline AP dimension of the thecal sac measures 10 mm. No foraminal narrowing is appreciated. At the L3-4, there is mild disc bulging. Ligamentum flavum hypertrophy is present bilaterally as well. No central canal stenosis or neural foraminal narrowing is seen. At L4-5, there is a central focal disc protrusion which extends caudally somewhat. This indents the ventral margin of the thecal sac in the midline. There is ligamentum flavum and mild facet hypertrophy as well. No neural foraminal narrowing is seen. At L5-S1, there is facet hypertrophy bilaterally. Mild central focal disc bulging is seen. No thecal sac compression. No foraminal narrowing is observed. Impression: Advanced L2-3 degenerative disc disease with diffuse disc bulging and borderline canal size at L2-3. No cauda equina compression is seen. There is bulging at the L1-2 L3-4 and L5-S1 disc levels as well. A central focal disc protrusion is seen at L4-5 which extends caudally. This compresses the ventral thecal sac at L4-5 but no central canal stenosis is seen. Electronically Signed by Kennedy Winslow MD 03/07/2019 07:36 P
[2019-03-07] MEDS: PERCOCET 5MG/325MG TAB PO PRN ×2 (19:00→23:08)
[2019-03-07 19:50] VITALS: BP 173/98
[2019-03-07] MEDS: HumaLOG INSULIN (NovoLOG) PER UNIT SC SCH (20:16)
[2019-03-07] MEDS: GABAPENTIN 300 MG CAP PO SCH (20:16)
[2019-03-07] MEDS: tiZANidine 4 MG TAB PO PRN (20:16)
[2019-03-07] MEDS: DOCUSATE SODIUM 100 MG CAP PO SCH (20:17)
--- NOTE | 2019-03-08 00:50 | ECGEPIP ---
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
[2019-03-08] MEDS: PERCOCET 5MG/325MG TAB PO PRN ×5 (03:10→23:42)
[2019-03-08] MEDS: NS 1,000 ML IV SCH (04:32)
[2019-03-08 06:00] VITALS: BP 154/86
[2019-03-08 06:36] LABS: HEMATOCRIT 39.9 % (36.0-47.0); HEMOGLOBIN 12.8 g/dl (12.0-15.5); MEAN CORPUSCULAR HEMOGLOBIN 27.9 pg (27.0-33.0); MEAN CORPUSCULAR HGB CONC 32.1 g/dl (32.0-36.5); MEAN CORPUSCULAR VOLUME 87.1 fl (80.0-96.0); PLATELET COUNT, AUTOMATED 385 10^3/uL (150-450); RED BLOOD COUNT 4.58 10^6/uL (4.00-5.40); WHITE BLOOD COUNT 10.3 10^3/uL (4.0-10.0)
[2019-03-08 07:07] LABS: ALBUMIN 3.3 GM/DL (3.2-5.2); ALT/SGPT 19 U/L (12-78); BILIRUBIN,TOTAL 0.4 MG/DL (0.2-1.0); BLOOD UREA NITROGEN 17 MG/DL (7-18); CALCIUM LEVEL 8.7 MG/DL (8.8-10.2); CARBON DIOXIDE LEVEL 31 MEQ/L (21-32); CHLORIDE LEVEL 105 MEQ/L (98-107); CREATININE FOR GFR 0.81 MG/DL (0.55-1.30); GLOMERULAR FILTRATION RATE > 60.0 (>45); GLUCOSE, FASTING 126 MG/DL (70-100); POTASSIUM SERUM 3.2 MEQ/L (3.5-5.1); SODIUM LEVEL 141 MEQ/L (136-145); TOTAL PROTEIN 7.2 GM/DL (6.4-8.2)
[2019-03-08] MEDS: HumaLOG INSULIN (NovoLOG) PER UNIT SC SCH ×4 (07:56→20:28)
[2019-03-08] MEDS: ENOXAPARIN 40 MG/0.4 ML SYRINGE (J1650) SC SCH (07:56)
[2019-03-08] MEDS: GABAPENTIN 300 MG CAP PO SCH ×3 (07:57→20:27)
[2019-03-08] MEDS: DULoxetine 30 MG CAP (CYMBALTA) PO SCH (07:57)
[2019-03-08] MEDS: DOCUSATE SODIUM 100 MG CAP PO SCH ×2 (07:58→20:27)
[2019-03-08] MEDS: POTASSIUM CHLORIDE 10 MEQ SR TABLET PO SCH ×2 (10:02→13:28)
[2019-03-08 14:00] VITALS: BP 161/90
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
[2019-03-08 20:00] VITALS: BP 132/82
[2019-03-08] MEDS: tiZANidine 4 MG TAB PO PRN (20:27)
[2019-03-09] MEDS: PERCOCET 5MG/325MG TAB PO PRN ×5 (04:30→22:50)
[2019-03-09 06:00] VITALS: BP 145/80
[2019-03-09 06:42] LABS: HEMATOCRIT 37.8 % (36.0-47.0); HEMOGLOBIN 12.2 g/dl (12.0-15.5); MEAN CORPUSCULAR HEMOGLOBIN 28.9 pg (27.0-33.0); MEAN CORPUSCULAR HGB CONC 32.3 g/dl (32.0-36.5); MEAN CORPUSCULAR VOLUME 89.6 fl (80.0-96.0); PLATELET COUNT, AUTOMATED 341 10^3/uL (150-450); RED BLOOD COUNT 4.22 10^6/uL (4.00-5.40); WHITE BLOOD COUNT 8.6 10^3/uL (4.0-10.0)
[2019-03-09 07:14] LABS: ALBUMIN 3.2 GM/DL (3.2-5.2); ALT/SGPT 20 U/L (12-78); BILIRUBIN,TOTAL 0.3 MG/DL (0.2-1.0); BLOOD UREA NITROGEN 25 MG/DL (7-18); CALCIUM LEVEL 8.5 MG/DL (8.8-10.2); CARBON DIOXIDE LEVEL 29 MEQ/L (21-32); CHLORIDE LEVEL 109 MEQ/L (98-107); CREATININE FOR GFR 0.81 MG/DL (0.55-1.30); GLOMERULAR FILTRATION RATE > 60.0 (>45); GLUCOSE, FASTING 127 MG/DL (70-100); POTASSIUM SERUM 3.8 MEQ/L (3.5-5.1); SODIUM LEVEL 143 MEQ/L (136-145); TOTAL PROTEIN 6.9 GM/DL (6.4-8.2)
[2019-03-09] MEDS: DULoxetine 30 MG CAP (CYMBALTA) PO SCH (07:42)
[2019-03-09] MEDS: DOCUSATE SODIUM 100 MG CAP PO SCH ×2 (07:42→22:49)
[2019-03-09] MEDS: HumaLOG INSULIN (NovoLOG) PER UNIT SC SCH ×4 (07:42→21:00)
[2019-03-09] MEDS: GABAPENTIN 300 MG CAP PO SCH ×3 (07:42→22:49)
[2019-03-09] MEDS: ENOXAPARIN 40 MG/0.4 ML SYRINGE (J1650) SC SCH (07:43)
[2019-03-09] MEDS ORDERED: HYDR-4517 PO (10:44)
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
[2019-03-09 16:07] VITALS: BP 178/102
[2019-03-09 17:14] VITALS: BP 154/92
[2019-03-09 22:00] VITALS: BP 148/89
[2019-03-10] MEDS: PERCOCET 5MG/325MG TAB PO PRN ×2 (03:40→08:28)
[2019-03-10 06:00] VITALS: BP 156/86
[2019-03-10 06:36] LABS: HEMATOCRIT 39.1 % (36.0-47.0); HEMOGLOBIN 12.3 g/dl (12.0-15.5); MEAN CORPUSCULAR HEMOGLOBIN 27.9 pg (27.0-33.0); MEAN CORPUSCULAR HGB CONC 31.5 g/dl (32.0-36.5); MEAN CORPUSCULAR VOLUME 88.7 fl (80.0-96.0); PLATELET COUNT, AUTOMATED 350 10^3/uL (150-450); RED BLOOD COUNT 4.41 10^6/uL (4.00-5.40); WHITE BLOOD COUNT 7.6 10^3/uL (4.0-10.0)
[2019-03-10] MEDS: HumaLOG INSULIN (NovoLOG) PER UNIT SC SCH (07:30)
[2019-03-10] MEDS: GABAPENTIN 300 MG CAP PO SCH (08:27)
[2019-03-10] MEDS: ENOXAPARIN 40 MG/0.4 ML SYRINGE (J1650) SC SCH (08:27)
[2019-03-10] MEDS: DULoxetine 30 MG CAP (CYMBALTA) PO SCH (08:27)
[2019-03-10] MEDS: DOCUSATE SODIUM 100 MG CAP PO SCH (08:28)
== END 2019-03-10 09:45 | disposition home or self-care (01) | DRG 347 ==
LOC: EDBD 13:07 → M ED 13:07 → M ED INP 13:08 → M MS5PR 19:55 → OBSVTOIN 03-09 17:59
PROVIDERS: ADMIT Internal Medicine; ATTEND Internal Medicine
DX: M51.16 Intervertebral disc disorders with radiculopathy, lumbar region (principal); I10 Essential (primary) hypertension; E66.9 Obesity, unspecified; E11.9 Type 2 diabetes mellitus without complications; D50.9 Iron deficiency anemia, unspecified; Z79.899 Other long term (current) drug therapy; M06.9 Rheumatoid arthritis, unspecified; G43.909 Migraine, unspecified, not intractable, without status migrainosus; Z90.49 Acquired absence of other specified parts of digestive tract; Z79.891 Long term (current) use of opiate analgesic; Z68.37 Body mass index [BMI] 37.0-37.9, adult

== ENCOUNTER → 2019-03-10 | Outpatient (CLI) | payer OTHER, MEDICAID ==
[~2019-03-10] MED LIST changes: +DULO1CAP6 PO; +EXCETAB33 PO; +HYDR-4517 PO; +TIZA4TAB4 PO
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
== END ==
LOC: M PAIN 10:00
PROVIDERS: ATTEND Anesthesiology
DX: M51.16 Intervertebral disc disorders with radiculopathy, lumbar region (principal); M48.061 Spinal stenosis, lumbar region without neurogenic claudication; G89.29 Other chronic pain; I10 Essential (primary) hypertension; M06.9 Rheumatoid arthritis, unspecified; G43.909 Migraine, unspecified, not intractable, without status migrainosus; E11.9 Type 2 diabetes mellitus without complications; Z79.899 Other long term (current) drug therapy

== ENCOUNTER → 2019-04-14 | Outpatient (CLI) | payer OTHER, MEDICAID ==
[~2019-04-14] MED LIST changes: +ISOVUE-M 300 61% 15ML VIAL (Q9967) As Ordered ONE; +LIDOCAINE 1% SDV INJ 30 ML VIAL As Ordered ONE; +diazePAM 5 MG TAB As Ordered ONE; +methylPREDNISolone SUSP 40 MG/ML (DEPO-medrol) VIAL (J1030) As Ordered ONE; +oxyCODONE 5MG TAB As Ordered ONE
--- NOTE | 2019-04-14 11:05 | REP ---
Partial lumbar spine series: Single view. History: Lumbar epidural steroid injection for pain. 5 seconds of fluoroscopy time is reported. Findings: A single last image hold fluoroscopically obtained spot radiographs lumbar spine documents needle position and contrast injection associated with injection procedure Electronically Signed by Kennedy Winslow MD 04/14/2019 10:56 A
--- NOTE | 2019-04-22 00:10 | ECWPNPC ---
PATIENT NAME: HANNA GARVIN : 1955 GENDER: FEMALE VISIT DATE: 04/14/2019 DISCHARGE DATE: 04/14/19 1155 VISIT LOCKED DATE TIME: PHYSICIAN: RADHA VALENZUELA MD RESOURCE: RADHA VALENZUELA MD REASON FOR APPOINTMENT 1. W/C LESI HISTORY OF PRESENT ILLNESS HISTORY OF PRESENT ILLNESS: PAIN THE PATIENT DESCRIBES THE PAIN... FALL RISK SCREENING: SCREENING :NO FALLS REPORTED IN THE LAST YEAR CURRENT MEDICATIONS TAKING OXYCODONE-ACETAMINOPHEN 7.5-325 MG TABLET 1 TABLET NEEDED ORALLY FOR PAIN EVERY 8 HRS MDD3, NOTES: 04-13-19 2100 TAKING ATENOLOL 25 MG TABLET 1 TABLET ORALLY TWICE A DAY, NOTES: 04-14-19 07 TAKING CYMBALTA 60 MG CAPSULE DELAYED RELEASE PARTICLES TAKE ONE CAPSULE BY MOUTH ORALLY BID, NOTES: 04-14-19 07 TAKING HYDROCODONE-ACETAMINOPHEN 10-325 MG TABLET 1 TABLET NEEDED ORALLY EVERY 6 HOURS NEEDED MDD3, NOTES: 04-14-19 07 TAKING GABAPENTIN 600 MG TABLET 1 CAP ORALLY TID, NOTES: 04-14-19 06 TAKING TIZANIDINE HCL 4 MG TABLET 1 TABLET NEEDED ORALLY BEFORE BEDTIME MAY REPEAT IN 5 HRS MDD2, NOTES: 04-13-19 07 TAKING LISINOPRIL 40 MG TABLET 1 TABLET ORALLY ONCE A DAY, NOTES: 04-14-19 07 TAKING GLUCOMETER DIRECTED TAKING BLOOD GLUCOSE TEST - STRIP DIRECTED IN VITRO DAILY TAKING LANCETS - MISCELLANEOUS DIRECTED DAILY TAKING METFORMIN HCL 500 MG TABLET 1 TABLET WITH A MEAL ORALLY TWICE DAILY, NOTES: 04-12-19 0800 NOT-TAKING LASIX 40 MG TABLET 1 TABLET ORALLY ONCE A DAY NOT-TAKING HYDROCHLOROTHIAZIDE 50 MG TABLET 1 TABLET ORALLY ONCE A DAY NOT-TAKING FLEXERIL 10 MG TABLET 1 TABLET ORALLY THREE TIMES A DAY NOT-TAKING IRON 325 (65 FE) MG TABLET 1 TABLET ORALLY ONCE A DAY NOT-TAKING HYDROCODONE-ACETAMINOPHEN 10-325 MG TABLET 1 TABLET NEEDED ORALLY FOR PAIN EVERY 8 HRS MDD3 NOT-TAKING OXYCODONE HCL 5 MG TABLET 1 TABLET NEEDED ORALLY FOR PAIN EVERY 8 HRS MDD3 NOT-TAKING ATENOLOL 100 MG TABLET TAKE ONE TABLET BY MOUTH TWICE A DAY , NOTES: DUPLICATE NOT-TAKING TOPAMAX 200 MG TABLET 1 TABLET ORALLY BEFORE BEDTIME NOT-TAKING PREMPRO 0.625-5 MG TABLET 1 TABLET ORALLY ONCE A DAY NOT-TAKING LYRICA 200 MG CAPSULE 1 CAPSULE ORALLY TWICE A DAY NOT-TAKING ATORVASTATIN CALCIUM 40 MG TABLET 1 TABLET ORALLY ONCE A DAY NOT-TAKING MACROBID 100 MG CAPSULE 1 CAPSULE WITH FOOD ORALLY EVERY 12 HRS MEDICATION LIST REVIEWED AND RECONCILED WITH THE PATIENT PAST MEDICAL HISTORY HTN RA LOW BACK PAIN MIGRAINES EDEMA IRON DEFICIENCY ANEMIA DIABETES CHRONIC BACK PAIN ALLERGIES N.K.D.A. SURGICAL HISTORY RT ANKLE ORIF, REVISED 2011, 05/13 CHOLECYSTECTOMY 2011 FAMILY HISTORY FATHER: 59 YRS, HEART ATTACK, DIAGNOSED WITH UNSPECIFIED HEART DISEASE MOTHER: 58 YRS, CANCER METS UNKNOWN ORIGIN, OTHER MALIGNANT NEOPLASM OF UNSPECIFIED SITE SIBLINGS: ALIVE, 3 BROTHERS , DIABETES, HYPERTENSION SON(S): ALIVE DAUGHTER(S): ALIVE 10 BROTHER(S) , 2 SISTER(S) . 1 SON(S) , 1 DAUGHTER(S) - HEALTHY. NEGATIVE FOR ANY UROLOGIC DISEASE. SOCIAL HISTORY GENERAL: TOBACCO USE ARE YOU A:NONSMOKER HIV / HEP-C SCREENING HIV TEST OFFERED TO PATIENT:YES DATE OFFERED:05/06/2018 TEST ACCEPTED:NO HEP-C TEST OFFERED TO PATIENT:YES DATE OFFERED:05/06/2018 REASON:PATIENT DECLINED TEST ACCEPTED:NO REASON:PATIENT DECLINED BROCHURE PROVIDED TO PATIENTNO OTHERS AT HOME: OTHER NON-RELATIVE. DIET: REGULAR. LANGUAGE ESTONIAN. DOMESTIC VIOLENCE NONE. BMI CARE GOAL FOLLOW-UP ABOVE NORMAL BMI FOLLOW-UPDIETARY MANAGEMENT EDUCATION, GUIDANCE, AND COUNSELING RECREATIONAL DRUG USE DENIES. EXERCISE: NONE. LEARNING BARRIERS / SPECIAL NEEDS CHANGE FROM LAST VISIT?NO BARRIERS TO LEARNING?NO HEARING IMPAIRED?NO VISION IMPAIRED?NO COGNITIVELY IMPAIRED?NO READINESS TO LEARN?YES LEARNING PREFERENCES?NO LEARNING CAPABILITIES PRESENT?YES EMOTIONAL BARRIERS?NO SPECIAL DEVICES?NO DIRT BIKE MECHANIC NEEDED?NO PAIN CLINIC PFS, CLERGY, PUBLIC HEALTH REFERRALS HAS THE PATIENT BEEN EDUCATED REGARDING HIS/HER PLAN OF CARE?YES HAS THE PATIENT BEEN EDUCATED REGARDING PAIN, THE RISK FOR PAIN, THE IMPORTANCE OF EFFECTIVE PAIN MANAGEMENT, AND THE PAIN ASSESSMENT PROCESS?YES LATEX QUESTIONNAIRE LATEX ALLERGY : HAVE YOU EVER DEVELOPED ANY TYPE OF REACTION AFTER HANDLING LATEX PRODUCTS SUCH RUBBER GLOVES, CONDOMS, DIAPHRAGMS, BALLOONS, SOCKS, OR UNDERWEAR?NO LATEX ALLERGY : HAVE YOU EVER DEVELOPED ANY TYPE OF REACTION DURING OR AFTER DENTAL APPOINTMENT, VAGINAL/RECTAL EXAMINATION, SURGICAL PROCEDURE, OR ANY OTHER EXPOSURE?NO DATE ASKED : 11/15/2018 LATEX RISK : HAVE YOU EVER HAD ANY DIFFICULTY BREATHING OR HIVES AFTER EATING OR HANDLING ANY FRUITS, OR VEGETABLES; SUCH KIWI, BANANAS, STONE FRUITS, OR CHESTNUTSNO LATEX RISK : DO YOU HAVE A PREVIOUS PERSONAL HISTORY OF MORE THAN NINE SURGERIES, SPINA BIFIDA, OR REPEATED CATHERIZATIONS? NO LATEX RISK : ARE YOU FREQUENTLY EXPOSED TO LATEX PRODUCTS IN YOUR OCCUPATION?NO CAFFEINE CAFFEINE USE?YES HOW OFTEN AND HOW MUCH? 1 COFFEE DAILY, OCCASIONAL SODA ADVANCE DIRECTIVE ADVANCE DIRECTIVE DISCUSSED WITH PATIENT:YES PATIENT DECLINES HCP INFORMATION AT THIS TIME. DECLINES ASSISTANCE WITH FORM. MORAVIAN NO GNOSTICISM BELIEFS THAT WOULD IMPACT HEALTH CARE. MARITAL STATUS: SINGLE. ALCOHOL SCREENING DID YOU HAVE A DRINK CONTAINING ALCOHOL IN THE PAST YEAR?NO POINTS0 INTERPRETATIONNEGATIVE OCCUPATION: DISABLED. SEXUAL HX HAD SEX IN THE LAST 12 MONTHS (VAGINAL, ORAL, OR ANAL)?: YES, WITH: MEN ONLY, USE PROTECTION?: NO, HAVE YOU EVER HAD AN STD?: NO. REVIEWED WITH PT 05/14/18 1149 BVREVIEWED WITH PATIENT 05/17/18 1617 JSREVIEWED WITH PT 06/07/18 1453 BVREVIEWED WITH PT 08/13/28 0930 LASREVIEWED WITH PT 10/05/18 1337 LASREVIEWED WITH PATIENT 10/15/18 0954 JS. HOSPITALIZATION/MAJOR DIAGNOSTIC PROCEDURE SURGERY RELATED REVIEW OF SYSTEMS REVIEWED BY: PROVIDER: . CONSTITUTIONAL: ANY CHANGE IN YOUR MEDICAL CONDITION? NO . CHILLS NO . FEVER NO . INFECTION: DO YOU HAVE NEW INFECTIONS? NO . DO YOU HAVE HISTORY OF MRSA? NO . MUSCULOSKELETAL: ANY NEW PATTERNS OF PAIN OR NUMBNESS? NO . GASTROENTEROLOGY: ANY NEW CHANGE IN BOWEL CONTROL? NO . GENITOURINARY: ANY NEW CHANGE IN BLADDER CONTROL? NO . IS THERE A CHANCE YOU COULD BE ? NO . HEMATOLOGY/LYMPH: DO YOU TAKE ANY BLOOD THINNERS? (FOR EXAMPLE- COUMADIN, PLAVIX, AGGRENOX, PLATEL, PRADAXA, OR XARELTO) NO . WHEN WAS YOUR LAST DOSE? DATE: TIME: . NEUROLOGY: HAVE YOU FALLEN IN THE PAST 12 MONTHS? NO . ANY NEW EXTREMITY NUMBNESS OR WEAKNESS? NO . CARDIOLOGY: DO YOU HAVE A PACEMAKER OR DEFIBRILLATOR? NO . RESPIRATORY: HAVE YOU BEEN SICK IN THE PAST WEEK? NO . FEVER NO . FLU LIKE SYMPTOMS? NO . COUGH NO . INTEGUMENTARY: DO YOU HAVE ANY RASHES OR OPEN SORES? NO . ALLERGIC/IMMUNO: ARE YOU ALLERGIC TO IV DYE? NO . ANY NEW ALLERGIES? NO . PSYCHIATRIC: DO YOU HAVE THOUGHTS OF HURTING YOURSELF OR SOMEONE ELSE? NO . ARE YOU ABUSED, NEGLECTED, OR IN AN UNSAFE ENVIRONMENT? NO . ENDOCRINOLOGY: ARE YOU DIABETIC? NO . OTHER: DO YOU NEED ANY PRESCRIPTIONS? NO . IF YES, PLEASE LIST: ____ . ANY NEW PROBLEMS WITH YOUR MEDICATIONS? NO . WHEN DID YOU LAST EAT? ____[id number] 1800 . WHEN DID YOU LAST DRINK? ____[phone] . WHAT DID YOU LAST DRINK? ____WATER . NAME OF PERSON DRIVING YOU HOME? ____TODD MAYORGA . DO YOU HAVE ANY OTHER QUESTIONS OR CONCERNS NO . VITAL SIGNS WT 257.2 LBS, HT 67.5 IN, BMI 39.68 INDEX, BP 145/81 MM HG, HR 72 /MIN, RR 18 /MIN, TEMP 98.4 F, OXYGEN SAT % 93%, NA INITIALS SC 08:39, REVIEWED BY: KG. ASSESSMENTS INTERVERTEBRAL DISC DISORDER WITH RADICULOPATHY OF LUMBAR REGION - M51.16 (PRIMARY) TREATMENT INTERVERTEBRAL DISC DISORDER WITH RADICULOPATHY OF LUMBAR REGION [facility] FLUORO GUIDE SPINE INJECTION (PAIN)[id number] PROCEDURES PN WORKMANS' COMP OPINION IN YOUR OPINION, WAS THE INCIDENT THAT THE PATIENT DESCRIBED THE COMPETENT MEDICAL CAUSE OF THIS INJURY/ILLNESS? YES ARE THE PATIENT'S COMPLAINTS CONSISTENT WITH HIS/HER HISTORY OF THE INJURY/ILLNESS? YES IS THE PATIENT'S HISTORY OF THE INJURY/ILLNESS CONSISTENT WITH YOUR OBJECTIVE FINDING? YES WHAT IS THE PERCENTAGE OF TEMPORARY IMPAIRMENT? MODERATE TO MARKED = 66.7% IS THE PATIENT WORKING? NO DOCTOR ON SITE: RADHA TAI MD PRE PROCEDURE DIAGNOSIS LUMBAR DISC DISORDER WITH RADICULOPATHY POST PROCEDURE DIAGNOSIS LUMBAR DISC DISORDER WITH RADICULOPATHY PROCEDURE LUMBAR EPIDURAL STEROID INJECTION UNDER FLUOROSCOPIC GUIDANCE SURGEON DR. RADHA VALENZUELA DRIVER EDUCATION INSTRUCTOR NONE ANESTHESIA LOCAL PRE PROCEDURE NOTE THE PATIENT HAS A HISTORY OF CHRONIC LOW BACK PAIN. I EVALUATED THE PATIENT AND REVIEWED THE CHART. I WENT OVER THE RISKS, ALTERNATIVES, AND BENEFITS ASSOCIATED WITH THIS PROCEDURE. THE PATIENT WOULD LIKE TO PROCEED AND GIVES CONSENT TO PERFORM THE PROCEDURE. THE PATIENT DENIES UNEXPLAINABLE WEIGHT LOSS, FEVER, CHILLS, OR NEW CHANGES IN URINARY OR BOWEL CONTROL. DESCRIPTION OF PROCEDURE THE PATIENT WAS BROUGHT TO THE PROCEDURE ROOM AND PLACED IN THE PRONE POSITION. THE LUMBOSACRAL AREA WAS CLEANED WITH BETADINE SOLUTION AND DRAPED ASEPTICALLY. THE PROCEDURE WAS DONE UNDER STERILE CONDITIONS. I CHECKED LATERALITY AND THE LEVEL WHERE THE PROCEDURE WAS GOING TO BE PERFORMED WITH THE PATIENT AND THE SUPPORTING STAFF AT THE MOMENT OF THE TIME OUT IN THE PROCEDURE ROOM. UNDER FLUOROSCOPIC GUIDANCE, THE TARGET POINT WAS SELECTED AT THE INTERLAMINAR LEVEL OF L4-L5. LIDOCAINE WAS USED TO NUMB THE SKIN AND THE SUBCUTANEOUS TISSUE BELOW IT. EPIDURAL TUOHY NEEDLE, 17-GAUGE, WAS ADVANCED UNDER FLUOROSCOPIC GUIDANCE AND FOLLOWING PATIENT FEEDBACK UNTIL THE EPIDURAL SPACE WAS REACHED, 7 CM DEEP INTO THE SKIN BY THE LOSS OF RESISTANCE TECHNIQUE. ISOVUE M DYE 30%, 0.25 ML, WAS INJECTED SHOWING ADEQUATE SPREAD OF THE DYE. THEN, A SOLUTION OF 3 ML OF NORMAL SALINE WITH DEPO-MEDROL 60 MG WAS INJECTED SLOWLY FOLLOWING PATIENT FEEDBACK. THERE WAS NO EVIDENCE OF BLOOD, PARESTHESIA OR CEREBROSPINAL FLUID DURING THE PROCEDURE. THE PATIENT WAS SENT TO THE RECOVERY ROOM. THE PATIENT WAS MOVING THE EXTREMITIES AND DOING WELL. THERE WAS NO COMPLICATION DURING THE PROCEDURE. FLUOROSCOPY TIME WAS 5 SECONDS. POST PROCEDURE NOTE THE PATIENT WILL BE SEEN IN A FOLLOW UP IN THE NEXT FEW WEEKS. INSTRUCTIONS WERE GIVEN, QUESTIONS WERE ANSWERED, AND THE PATIENT EXPRESSED UNDERSTANDING AND AGREES WITH THE PLAN. I, ANNABEL WOODY, DOCUMENTED THE ABOVE INFORMATION ACTING A SCRIBE FOR DR. VALENZUELA. I HAVE REVIEWED THE ABOVE DOCUMENT, WRITTEN BY ANNABEL WOODY SCRIBEliazar AND I VERIFY THAT IT IS ACCURATE. PROCEDURE CODES 61169 LUMBAR/SACRAL W/ IMAGING 6045F RADXPS IN END [id number] PXD DISPOSITION & COMMUNICATION FOLLOW UP 2 WEEKS ELECTRONICALLY SIGNED BY RADHA VALENZUELA MD, MD ON 04/21/2019 AT 12:38 PM EST DISCLAIMER : THIS IS A VISIT SUMMARY EXTRACTED FROM THE [facility] CHART. IT IS NOT A COPY OF THE [employer] PROGRESS NOTE. MTDD
== END ==
LOC: M PAIN 08:30
PROVIDERS: ATTEND Anesthesiology
DX: M51.16 Intervertebral disc disorders with radiculopathy, lumbar region (principal)
CPT/HCPCS: 62323; J1030; Q9967

== ENCOUNTER → 2019-04-25 | Outpatient (CLI) | payer OTHER, MEDICAID ==
[~2019-04-25] MED LIST changes: -ISOVUE-M 300 61% 15ML VIAL (Q9967) As Ordered ONE; -LIDOCAINE 1% SDV INJ 30 ML VIAL As Ordered ONE; -diazePAM 5 MG TAB As Ordered ONE; -methylPREDNISolone SUSP 40 MG/ML (DEPO-medrol) VIAL (J1030) As Ordered ONE; -oxyCODONE 5MG TAB As Ordered ONE
--- NOTE | 2019-04-27 03:48 | ECWPNPC ---
PATIENT NAME: HANNA GARVIN : 1955 GENDER: FEMALE VISIT DATE: 04/25/2019 DISCHARGE DATE: 04/25/19 1052 VISIT LOCKED DATE TIME: PHYSICIAN: BRIDGETTE CALDWELL RESOURCE: BRIDGETTE CALDWELL REASON FOR APPOINTMENT 1. W/C POST LESI HISTORY OF PRESENT ILLNESS HISTORY OF PRESENT ILLNESS: PAIN THE PATIENT DESCRIBES THE PAIN... 63-YEAR-OLD FEMALE IN FOR POST LESI FOLLOW-UP. SHE RATED HER PAIN PREPROCEDURE 9 OUT OF 10 AND POSTPROCEDURE AT A 7 OUT OF 10 FURTHER STATING THAT IT ONLY LASTED APPROXIMATELY 1-1/2 DAYS. SHE RATES HER PAIN CURRENTLY AT A 9 OUT OF 10 AND DESCRIBES IT ACHING, BURNING, SHARP, AND STABBING. SHE FEELS THE MEDICATIONS ARE WORKING WELL AND DENIES MED SIDE EFFECTS AT THIS TIME. FALL RISK SCREENING: SCREENING :NO FALLS REPORTED IN THE LAST YEAR CURRENT MEDICATIONS TAKING OXYCODONE-ACETAMINOPHEN 7.5-325 MG TABLET 1 TABLET NEEDED ORALLY FOR PAIN EVERY 8 HRS MDD3 TAKING ATENOLOL 25 MG TABLET 1 TABLET ORALLY TWICE A DAY TAKING CYMBALTA 60 MG CAPSULE DELAYED RELEASE PARTICLES TAKE ONE CAPSULE BY MOUTH ORALLY BID TAKING LISINOPRIL 40 MG TABLET 1 TABLET ORALLY ONCE A DAY TAKING GLUCOMETER DIRECTED TAKING BLOOD GLUCOSE TEST - STRIP DIRECTED IN VITRO DAILY TAKING LANCETS - MISCELLANEOUS DIRECTED DAILY TAKING METFORMIN HCL 500 MG TABLET 1 TABLET WITH A MEAL ORALLY TWICE DAILY TAKING HYDROCODONE-ACETAMINOPHEN 10-325 MG TABLET 1 TABLET NEEDED ORALLY EVERY 6 HOURS NEEDED MDD3 TAKING GABAPENTIN 600 MG TABLET 1 CAP ORALLY TID TAKING TIZANIDINE HCL 4 MG TABLET 1 TABLET NEEDED ORALLY BEFORE BEDTIME MAY REPEAT IN 5 HRS MDD2 NOT-TAKING LASIX 40 MG TABLET 1 TABLET ORALLY ONCE A DAY NOT-TAKING HYDROCHLOROTHIAZIDE 50 MG TABLET 1 TABLET ORALLY ONCE A DAY NOT-TAKING FLEXERIL 10 MG TABLET 1 TABLET ORALLY THREE TIMES A DAY NOT-TAKING IRON 325 (65 FE) MG TABLET 1 TABLET ORALLY ONCE A DAY NOT-TAKING HYDROCODONE-ACETAMINOPHEN 10-325 MG TABLET 1 TABLET NEEDED ORALLY FOR PAIN EVERY 8 HRS MDD3 NOT-TAKING OXYCODONE HCL 5 MG TABLET 1 TABLET NEEDED ORALLY FOR PAIN EVERY 8 HRS MDD3 NOT-TAKING ATENOLOL 100 MG TABLET TAKE ONE TABLET BY MOUTH TWICE A DAY , NOTES: DUPLICATE NOT-TAKING TOPAMAX 200 MG TABLET 1 TABLET ORALLY BEFORE BEDTIME NOT-TAKING PREMPRO 0.625-5 MG TABLET 1 TABLET ORALLY ONCE A DAY NOT-TAKING LYRICA 200 MG CAPSULE 1 CAPSULE ORALLY TWICE A DAY NOT-TAKING ATORVASTATIN CALCIUM 40 MG TABLET 1 TABLET ORALLY ONCE A DAY NOT-TAKING MACROBID 100 MG CAPSULE 1 CAPSULE WITH FOOD ORALLY EVERY 12 HRS MEDICATION LIST REVIEWED AND RECONCILED WITH THE PATIENT PAST MEDICAL HISTORY HTN RA LOW BACK PAIN MIGRAINES EDEMA IRON DEFICIENCY ANEMIA DIABETES CHRONIC BACK PAIN ALLERGIES N.K.D.A. SURGICAL HISTORY RT ANKLE ORIF, REVISED 2011, 05/13 CHOLECYSTECTOMY 2011 FAMILY HISTORY FATHER: 59 YRS, HEART ATTACK, DIAGNOSED WITH UNSPECIFIED HEART DISEASE MOTHER: 58 YRS, CANCER METS UNKNOWN ORIGIN, OTHER MALIGNANT NEOPLASM OF UNSPECIFIED SITE SIBLINGS: ALIVE, 3 BROTHERS , DIABETES, HYPERTENSION SON(S): ALIVE DAUGHTER(S): ALIVE 10 BROTHER(S) , 2 SISTER(S) . 1 SON(S) , 1 DAUGHTER(S) - HEALTHY. NEGATIVE FOR ANY UROLOGIC DISEASE. SOCIAL HISTORY GENERAL: TOBACCO USE ARE YOU A:NONSMOKER HIV / HEP-C SCREENING HIV TEST OFFERED TO PATIENT:YES DATE OFFERED:05/06/2018 TEST ACCEPTED:NO HEP-C TEST OFFERED TO PATIENT:YES DATE OFFERED:05/06/2018 REASON:PATIENT DECLINED TEST ACCEPTED:NO REASON:PATIENT DECLINED BROCHURE PROVIDED TO PATIENTNO OTHERS AT HOME: OTHER NON-RELATIVE. DIET: REGULAR. LANGUAGE HONG KONGER. DOMESTIC VIOLENCE NONE. BMI CARE GOAL FOLLOW-UP ABOVE NORMAL BMI FOLLOW-UPDIETARY MANAGEMENT EDUCATION, GUIDANCE, AND COUNSELING RECREATIONAL DRUG USE DENIES. EXERCISE: NONE. LEARNING BARRIERS / SPECIAL NEEDS CHANGE FROM LAST VISIT?NO BARRIERS TO LEARNING?NO HEARING IMPAIRED?NO VISION IMPAIRED?NO COGNITIVELY IMPAIRED?NO READINESS TO LEARN?YES LEARNING PREFERENCES?NO LEARNING CAPABILITIES PRESENT?YES EMOTIONAL BARRIERS?NO SPECIAL DEVICES?NO LEARNING COACH NEEDED?NO PAIN CLINIC PFS, CLERGY, PUBLIC HEALTH REFERRALS HAS THE PATIENT BEEN EDUCATED REGARDING HIS/HER PLAN OF CARE?YES HAS THE PATIENT BEEN EDUCATED REGARDING PAIN, THE RISK FOR PAIN, THE IMPORTANCE OF EFFECTIVE PAIN MANAGEMENT, AND THE PAIN ASSESSMENT PROCESS?YES LATEX QUESTIONNAIRE LATEX ALLERGY : HAVE YOU EVER DEVELOPED ANY TYPE OF REACTION AFTER HANDLING LATEX PRODUCTS SUCH RUBBER GLOVES, CONDOMS, DIAPHRAGMS, BALLOONS, SOCKS, OR UNDERWEAR?NO LATEX ALLERGY : HAVE YOU EVER DEVELOPED ANY TYPE OF REACTION DURING OR AFTER DENTAL APPOINTMENT, VAGINAL/RECTAL EXAMINATION, SURGICAL PROCEDURE, OR ANY OTHER EXPOSURE?NO LATEX RISK : HAVE YOU EVER HAD ANY DIFFICULTY BREATHING OR HIVES AFTER EATING OR HANDLING ANY FRUITS, OR VEGETABLES; SUCH KIWI, BANANAS, STONE FRUITS, OR CHESTNUTSNO LATEX RISK : DO YOU HAVE A PREVIOUS PERSONAL HISTORY OF MORE THAN NINE SURGERIES, SPINA BIFIDA, OR REPEATED CATHERIZATIONS? NO LATEX RISK : ARE YOU FREQUENTLY EXPOSED TO LATEX PRODUCTS IN YOUR OCCUPATION?NO DATE ASKED : 11/15/2018 CAFFEINE CAFFEINE USE?YES HOW OFTEN AND HOW MUCH? 1 COFFEE DAILY, OCCASIONAL SODA ADVANCE DIRECTIVE ADVANCE DIRECTIVE DISCUSSED WITH PATIENT:YES PATIENT DECLINES HCP INFORMATION AT THIS TIME. DECLINES ASSISTANCE WITH FORM. CONGREGATION NO DRUZE BELIEFS THAT WOULD IMPACT HEALTH CARE. MARITAL STATUS: SINGLE. ALCOHOL SCREENING DID YOU HAVE A DRINK CONTAINING ALCOHOL IN THE PAST YEAR?NO POINTS0 INTERPRETATIONNEGATIVE OCCUPATION: DISABLED. SEXUAL HX HAD SEX IN THE LAST 12 MONTHS (VAGINAL, ORAL, OR ANAL)?: YES, WITH: MEN ONLY, USE PROTECTION?: NO, HAVE YOU EVER HAD AN STD?: NO. REVIEWED WITH PT 05/14/18 1149 BVREVIEWED WITH PATIENT 05/17/18 1617 JSREVIEWED WITH PT 06/07/18 1453 BVREVIEWED WITH PT 08/13/28 0930 LASREVIEWED WITH PT 10/05/18 1337 LASREVIEWED WITH PATIENT 10/15/18 0954 JS REVIEWED WITH PATIENT 04/25/19 1023 JS. HOSPITALIZATION/MAJOR DIAGNOSTIC PROCEDURE SURGERY RELATED REVIEW OF SYSTEMS REVIEWED BY: PROVIDER: SARAHI GARCIA . CONSTITUTIONAL: ANY CHANGE IN YOUR MEDICAL CONDITION? NO . CHILLS NO . FEVER NO . INFECTION: DO YOU HAVE NEW INFECTIONS? NO . DO YOU HAVE HISTORY OF MRSA? NO . MUSCULOSKELETAL: ANY NEW PATTERNS OF PAIN OR NUMBNESS? NO . GASTROENTEROLOGY: ANY NEW CHANGE IN BOWEL CONTROL? NO . GENITOURINARY: ANY NEW CHANGE IN BLADDER CONTROL? NO . IS THERE A CHANCE YOU COULD BE ? NO . HEMATOLOGY/LYMPH: DO YOU TAKE ANY BLOOD THINNERS? (FOR EXAMPLE- COUMADIN, PLAVIX, AGGRENOX, PLATEL, PRADAXA, OR XARELTO) NO . WHEN WAS YOUR LAST DOSE? DATE: TIME: . NEUROLOGY: HAVE YOU FALLEN IN THE PAST 12 MONTHS? NO . ANY NEW EXTREMITY NUMBNESS OR WEAKNESS? NO . CARDIOLOGY: DO YOU HAVE A PACEMAKER OR DEFIBRILLATOR? NO . RESPIRATORY: HAVE YOU BEEN SICK IN THE PAST WEEK? NO . FEVER NO . FLU LIKE SYMPTOMS? NO . COUGH NO . INTEGUMENTARY: DO YOU HAVE ANY RASHES OR OPEN SORES? NO . ALLERGIC/IMMUNO: ARE YOU ALLERGIC TO IV DYE? NO . ANY NEW ALLERGIES? NO . PSYCHIATRIC: DO YOU HAVE THOUGHTS OF HURTING YOURSELF OR SOMEONE ELSE? NO . ARE YOU ABUSED, NEGLECTED, OR IN AN UNSAFE ENVIRONMENT? NO . ENDOCRINOLOGY: ARE YOU DIABETIC? YES . OTHER: DO YOU NEED ANY PRESCRIPTIONS? YES . IF YES, PLEASE LIST: ____HYDROCODONE . ANY NEW PROBLEMS WITH YOUR MEDICATIONS? NO . WHEN DID YOU LAST EAT? ____ . WHEN DID YOU LAST DRINK? ____ . WHAT DID YOU LAST DRINK? ____ . NAME OF PERSON DRIVING YOU HOME? ____ . DO YOU HAVE ANY OTHER QUESTIONS OR CONCERNS NO . VITAL SIGNS WT 255.2 LBS, HT 67.5 IN, BMI 39.38 INDEX, BP 159/74 MM HG, HR 83 /MIN, RR 18 /MIN, TEMP 97.2 F, OXYGEN SAT % 92%, SAFE IN ENV? (Y/N) YES, NA INITIALS AW 1002, REVIEWED BY: KAITY. EXAMINATION GENERAL EXAMINATION: GENERALNO ACUTE DISTRESS, WELL NOURISHED AND HYDRATED. PSYCHAPPROPRIATE MOOD AND AFFECT . LUNGS:CLEAR TO AUSCULTATION BILATERALLY, NO WHEEZES, RHONCHI, RALES. HEART:NO MURMURS, REGULAR RATE AND RHYTHM. BACK:POINT TENDER ALONG LUMBAR SPINE, SURROUNDING SKIN SHOWS NO ERYTHEMA, ECCHYMOSIS, INCREASED WARMTH, AND/OR SKIN ERUPTIONS NOTED. PATIENT DOES ENDORSE INCREASED PAIN WITH FACET LOADING. . MUSCULOSKELETAL:WEAKNESS OF THE LOWER EXTREMITIES NOTED BILATERALLY . ASSESSMENTS LUMBAR ARTHROPATHY - M47.816 (PRIMARY) TREATMENT LUMBAR ARTHROPATHY NOTES: BILATERAL DIAGNOSTIC DIAGNOSTIC FACET BLOCK NUMBER 1 L4-L5 L5-S1. CLINICAL NOTES: 63-YEAR-OLD FEMALE IN FOR WORKER'S COMP. POST LESI FOLLOW-UP. WE DID DISCUSS POTENTIAL RF PROCEDURE WITH A GOAL OF INCREASED FUNCTIONALITY TO INCLUDE DECREASED PAIN WITH AMBULATION. GIVEN PRESENTING SYMPTOMS AND RESULTS OF PHYSICAL EXAMINATION RECOMMENDED DIAGNOSTIC FACET BLOCK #1 WITH POSTPROCEDURAL FOLLOW-UP. PATIENT HAS EXPRESSED UNDERSTANDING OF AND WAS IN AGREEMENT WITH TREATMENT PLAN. GIVEN TIME TO ASK QUESTIONS AND EXPRESS CONCERNS., ISTOP REGISTRY REVIEWED AND DEMONSTRATES COMPLLIANCE. (REF # [id number] ) BRINGS IN MEDICATIONS WHICH IS APPROPRIATE FOR WHAT WAS DISPENSED. RECENT URINE TOXICOLOGY REVIEWED. NO UNAUTHORIZED MEDICATIONS. NO ILLICIT SUBSTANCES AND PRESCRIBED MEDICATIONS WERE PRESENT. PROCEDURES PN WORKMANS' COMP OPINION IN YOUR OPINION, WAS THE INCIDENT THAT THE PATIENT DESCRIBED THE COMPETENT MEDICAL CAUSE OF THIS INJURY/ILLNESS? YES ARE THE PATIENT'S COMPLAINTS CONSISTENT WITH HIS/HER HISTORY OF THE INJURY/ILLNESS? YES IS THE PATIENT'S HISTORY OF THE INJURY/ILLNESS CONSISTENT WITH YOUR OBJECTIVE FINDING? YES WHAT IS THE PERCENTAGE OF TEMPORARY IMPAIRMENT? MODERATE TO MARKED = 66.7% IS THE PATIENT WORKING? NO DOCTOR ON SITE: RADHA TAI MD PREVENTIVE MEDICINE PAIN CLINIC TEACHING: PROCEDURE TEACHING PRINTED AND REVIEWED INFORMATION ON DIAGNOSTIC FACET BLOCK PROCEDURE WITH PATIENT. ALSO REVIEWED PRE-PROCEDURE INSTRUCTIONS. PATIENT VERBALIZED AN UNDERSTANDING. DINO DE LA CRUZ 04/25/2019 10:56:53 AM > . PROCEDURE CODES FA211 ESTABILISHED PATIENT [facility] CHARGE DISPOSITION & COMMUNICATION FOLLOW UP POSTPROCEDURE (REASON: BILATERAL DIAGNOSTIC DIAGNOSTIC FACET BLOCK NUMBER 1 L4-L5 L5-S1) ELECTRONICALLY SIGNED BY MELY CUELLO ON 04/26/2019 AT 04:00 PM EST DISCLAIMER : THIS IS A VISIT SUMMARY EXTRACTED FROM THE [employer] CHART. IT IS NOT A COPY OF THE [employer] PROGRESS NOTE. MICHAEL
== END ==
LOC: M PAIN 10:00
PROVIDERS: ATTEND Family Medicine
DX: M47.816 Spondylosis without myelopathy or radiculopathy, lumbar region (principal)

== ENCOUNTER 2019-05-06 11:44 | Emergency (ER) | payer OTHER ==
[~2019-05-06] VITALS: Ht 172.7 cm; Wt 115.9 kg
[2019-05-06] MEDS ORDERED: LISI10TA4 PO (11:56)
[2019-05-06] MEDS ORDERED: HYDR25TAB PO (11:56)
[2019-05-06] MEDS ORDERED: ATEN50TA2 PO (11:56)
[2019-05-06 12:47] LABS: HEMATOCRIT 38.7 % (36.0-47.0); HEMOGLOBIN 11.9 g/dl (12.0-15.5); MEAN CORPUSCULAR HEMOGLOBIN 27.2 pg (27.0-33.0); MEAN CORPUSCULAR HGB CONC 30.7 g/dl (32.0-36.5); MEAN CORPUSCULAR VOLUME 88.4 fl (80.0-96.0); PLATELET COUNT, AUTOMATED 344 10^3/uL (150-450); RED BLOOD COUNT 4.38 10^6/uL (4.00-5.40); WHITE BLOOD COUNT 7.7 10^3/uL (4.0-10.0)
[2019-05-06] MEDS ORDERED: CYCLOBENZAPRINE 10 MG TAB PO ONE (13:00)
[2019-05-06] MEDS ORDERED: KETOROLAC 60 MG/2 ML VIAL (J1885) IM ONE (13:00)
[2019-05-06] MEDS ORDERED: PERC5TAB12 PO (14:21)
[2019-05-06] MEDS ORDERED: PRED20TA PO (14:24)
[2019-05-06] MEDS ORDERED: PERCOCET 5MG/325MG TAB PO ONE (14:30)
[2019-05-06 15:25] VITALS: BP 162/92
[2019-05-07] MEDS ORDERED: HYDR-4517 PO (18:13)
[2019-05-07] MEDS ORDERED: OXYC1TAB23 PO (18:13)
[2019-05-07] MEDS ORDERED: PRED20TA PO (18:13)
== END 2019-05-06 15:27 | disposition home or self-care (01) ==
LOC: M ED 11:44 → EDBD 11:44 → M ED 15:27
DX: G89.29 Other chronic pain (principal); M54.5 Low back pain; E11.9 Type 2 diabetes mellitus without complications; I10 Essential (primary) hypertension; G43.909 Migraine, unspecified, not intractable, without status migrainosus; Z79.899 Other long term (current) drug therapy; Z79.82 Long term (current) use of aspirin
CPT/HCPCS: 36415; 80047; 85027; 96372; 99284; G0480; J1885

== ENCOUNTER 2019-05-07 11:15 | Observation (INO) | payer OTHER ==
[~2019-05-07] VITALS: Ht 172.7 cm; Wt 119.1 kg
[~2019-05-07 11:15] MED LIST changes: +ATEN50TA2 PO; +HYDR25TAB PO; +LISI10TA4 PO; +PRED20TA PO
[2019-05-07] MEDS ORDERED: diazePAM 5 MG TAB PO ONE (12:45)
[2019-05-07] MEDS ORDERED: KETOROLAC 60 MG/2 ML VIAL (J1885) IM ONE (13:00)
[2019-05-07 13:13] LABS: HEMATOCRIT 37.8 % (36.0-47.0); MEAN CORPUSCULAR HEMOGLOBIN 27.6 pg (27.0-33.0); MEAN CORPUSCULAR HGB CONC 31.7 g/dl (32.0-36.5); MEAN CORPUSCULAR VOLUME 87.1 fl (80.0-96.0); PLATELET COUNT, AUTOMATED 384 10^3/uL (150-450); RED BLOOD COUNT 4.34 10^6/uL (4.00-5.40); WHITE BLOOD COUNT 13.2 10^3/uL (4.0-10.0)
[2019-05-07 13:45] LABS: ALBUMIN 3.3 GM/DL (3.2-5.2); ALT/SGPT 31 U/L (12-78); BILIRUBIN,TOTAL 0.2 MG/DL (0.2-1.0); BLOOD UREA NITROGEN 40 MG/DL (7-18); CALCIUM LEVEL 9.2 MG/DL (8.8-10.2); CARBON DIOXIDE LEVEL 29 MEQ/L (21-32); CHLORIDE LEVEL 105 MEQ/L (98-107); CREATININE FOR GFR 0.84 MG/DL (0.55-1.30); GLOMERULAR FILTRATION RATE > 60.0 (>45); GLUCOSE, FASTING 195 MG/DL (70-100); POTASSIUM SERUM 4.2 MEQ/L (3.5-5.1); SODIUM LEVEL 141 MEQ/L (136-145); TOTAL PROTEIN 6.9 GM/DL (6.4-8.2)
[2019-05-07] MEDS ORDERED: MORPHINE 2 MG/ML 1ML VIAL (J2270) IV ONE (15:15)
--- NOTE | 2019-05-07 15:19 | REP ---
MRI LUMBAR SPINE WITHOUT CONTRAST: 05/07/2019. COMPARISON: 03/07/2019 MRI. CLINICAL HISTORY: Increased low back pain, states recent facet injections. TECHNIQUE: Standard MRI lumbar technique header with the sagittal T1, T2, and STIR images along with axial T1 and T2 sequences. FINDINGS: The normal lumbar lordosis is slightly reduced but appearance unchanged from 2 months ago. Vertebral body heights and marrow signal are intact. There are discogenic endplate changes at L2-3, and to lesser extent L5-S1. There is loss of disc water at all levels in the lumbar spine, greatest at L1-2 and L5-S1, least at L3-4, but all involved. The conus terminates at the L1-2 level. T11-12 and T12-L1 levels show no disc bulge or herniation and no spinal or foraminal stenosis. At L1-2, there is broad-based mild diffuse disc bulge flattening the ventral thecal sac with crowding of the nerve roots posteriorly. This does not abut or compress the L2 nerve roots in the central canal. Foramina are adequate. At L2-3, there is broad-based disc bulge with moderate severity indenting ventral margin of the thecal sac causing some central canal stenosis. There is crowding of nerve roots posteriorly. AP canal diameter narrowed to 8 mm. The bulge abuts the L3 nerve root on the right more than left and displaces it. The foramina are adequate. There is facet arthropathy, fluid in the facets as an effusion. At L3-4, there is broad-based disc bulge, ligamentum flavum, and facet hypertrophy. Central canal shows some mild lateral recess stenosis with less nerve root crowding posteriorly, the AP canal diameter is 11 mm. The bulge abuts the L4 nerve roots in the central canal, and the foramina appear adequate without nerve root compression. At L4-5, there is a broad-based disc bulge with central small disc protrusion with inferior or caudal extension. However, this appearance is similar to previous study. The bulge abuts the L5 nerve roots but does not displace them. Disc protrusion does not abut. The foramina are adequate without nerve root compression for the L4 roots. At L5-S1, broad-based disc bulge asymmetric towards the left abutting the S1 nerve roots but not displacing them. Cross-sectional area of the canal was adequate. The foramina are adequate without nerve root compression. No central canal stenosis. IMPRESSION: 1. Lumbar spondylosis greatest at L2-3 with broad-based disc bulge causing central canal stenosis at this level and abutting and displacing the L3 nerve roots, right more than left. Crowding of the nerve roots posteriorly, and ligamentum flava flavum and facet hypertrophy noted. Foramina appear adequate. 2. Spondylosis with disc bulge and central protrusion at L4-5 with borderline canal but no foraminal encroachment. The bulge abuts the L5 nerve root in the central canal but the protrusion does not. 3. Broad-based disc bulge at L3-4 , ligamentum and facet hypertrophy contributing to some lateral recess stenosis and abutting L4 nerve roots without displacing them. Foramina adequate. 4. The L5-S1 and L1-2 levels show no spinal stenosis or significant foraminal encroachment. Facet arthropathy at both these levels. 5. No significant interval change from the study 03/07/2019. Electronically Signed by Karan Tomlin MD 05/07/2019 08:00 P
[2019-05-07] MEDS ORDERED: METHOCARBAMOL 1,000 MG/10 ML VIAL (J2800) IM ONE (15:30)
[2019-05-07 15:57] LABS: ERYTHROCYTE SEDIMENTATION RATE 47 mm/hr (0-30)
[2019-05-07] MEDS ORDERED: PERCOCET 5MG/325MG TAB PO ONE (16:30)
[2019-05-07] MEDS ORDERED: PRED20TA PO (18:13)
[2019-05-07] MEDS ORDERED: OXYC1TAB23 PO (18:13)
[2019-05-07] MEDS ORDERED: HYDR-4517 PO (18:13)
[2019-05-07] MEDS ORDERED: EXCEDRIN MIGRAINE TABLET PO PRN (18:15)
--- NOTE | 2019-05-07 18:24 | HPEPDOC ---
[facility] Medical History & Physical Date of Admission May 07, 2019 Date of Service: May 07, 2019 Attending Physician: CATRACHITA FOSTER MD History and Physical CHIEF COMPLAINT: Chronic back pain HISTORY OF PRESENT ILLNESS: 63-year-old female with past medical history of diabetes mellitus, hypertension, chronic back pain secondary to bulging disks in her lumbar spine, presents from home with worsening chronic back pain. She was admitted 2 months ago for the same symptoms, she had run out of her pain m edications at that time, pain resolved at that time when home opioids were resumed. She reports continued back pain after discharge in March, received 1 Steroid injection in her back by pain management physician in the interim, reports persistent low back pain despite the injection and opioids, unchanged, resented to the ED today because she could no longer tolerate the pain. She reports no changes to her chronic pain which is located in her lumbar spine and radiates down both of her legs. She also reports associated weakness in her legs. She has no new complaints at this time, underwent MRI of the lumbar spine in the ED which showed chronic changes and MRI is unchanged from the one done 2 months ago. She denies any short of breath, chest pain, nausea, vomiting, abdominal pain or diarrhea at this time. 10 point review of system is negative except for above PAST MEDICAL HISTORY: 1. Chronic lumbar pain due to disc protrusion and spinal stenosis. 2. Diabetes mellitus. 3. Hypertension. PAST SURGICAL HISTORY: 1. Ankle surgery. 2. Cholecystectomy. SOCIAL HISTORY: Never smoker. Denies alcohol use. Denies drug use FAMILY HISTORY: Father had MD ALLERGIES: Please see below. HOME MEDICATIONS: Please see below. PHYSICAL EXAMINATION: VITAL SIGNS: Please see below. GENERAL: No distress, obese HEENT: Normocephalic, atraumatic, moist mucous membranes NECK: Supple CARDIOVASCULAR EXAMINATION: S1, S2, no murmurs RESPIRATORY EXAMINATION: Clear to auscultation, no wheezing ABDOMINAL EXAMINATION: Soft, nontender, nondistended, positive bowel sounds EXTREMITIES: [Range of motion in lower extremities limited due to pain SKIN: No rash NEUROLOGICAL EXAMINATION: Alert and oriented 3, no focal deficits PSYCHIATRIC EXAMINATION: Calm and cooperative LABORATORY DATA: See below. IMAGING: MRI with chronic changes, unchanged from 2 months ago MICROBIOLOGY: Please see below. ASSESSMENT: 63-year-old female with past medical history of chronic back pain, diabetes mellitus, hypertension, presents with persistent chronic back pain. PLAN: 1. Chronic back pain. No acute changes, takes Vicodin, Percocet, Cymbalta and gabapentin at home, she believes her pain regimen should be increased, has follow-up appointment with pain management physician in the near future, continue Cymbalta, gabapentin, Percocet 10/325 mg every 6 hours when necessary, hold Vicodin for now. We will adjust pain regimen as needed. 2. Diabetes mellitus. Sliding scale insulin before meals and at bedtime 3. Hypertension Continue home lisinopril DVT prophylaxis: Heparin subcutaneous GI prophylax his: Not needed Vital Signs Vital Signs Date Time Temp Pulse Resp B/P (MAP) Pulse Ox O2 Delivery O2 Flow Rate FiO2 05/07/19 16:35 18 05/07/19 16:24 97.2 85 158/90 (112) 96 Room Air Laboratory Data Labs 24H Laboratory Tests 2 05/07/19 13:02: Nucleated Red Blood Cells % (auto) 0.0, Erythrocyte Sedimentation Rate 47H, Anion Gap 7L, Glomerular Filtration Rate > 60.0, Calcium Level 9.2, Total Bilirubin 0.2, Aspartate Amino Transf (AST/SGOT) 8, Alanine Aminotransferase (ALT/SGPT) 31, Alkaline Phosphatase 120H, Total Protein 6.9, Albumin 3.3, Albumin/Globulin Ratio 0.92L 05/07/19 13:15: Bedside Glucose (Misc Panel) 175H CBC/BMP Laboratory Tests 05/07/19 13:02 Home Medications Scheduled Atenolol (Atenolol) 50 Mg Tablet, 50 MG PO BID Duloxetine Hcl (Duloxetine HCl) 60 Mg Capsule.dr, 60 MG PO DAILY Gabapentin (Gabapentin) 600 Mg Tab, 600 MG PO TID Lisinopril (Lisinopril) 10 Mg Tablet, 10 MG PO DAILY Prednisone (Prednisone) 20 Mg Tablet, 40 MG PO DAILY Scheduled PRN Aspirin/Acetaminophen/Caffeine (Excedrin Migraine Caplet) 1 Each Tablet, 2 TAB PO DAILY PRN for HEADACHE Hydrocodone/Acetaminophen (Hydrocodone-Acetamin 10-325 mg) 1 Each Tablet, 1 TAB PO Q6H PRN for PAIN Oxycodone HCl/Acetaminophen (Oxycodone-Acetaminophen 5-325) 1 Each Tablet, 1 TAB PO Q8H PRN for PAIN Tizanidine HCl (Tizanidine HCl) 4 Mg Tablet, 4 MG PO QHS PRN for SPASMS Allergies Coded Allergies: No Known Allergies (Unverified , 10/15/18) A-FIB/CHADSVASC A-FIB History Current/History of A-Fib/PAF?: No CATRACHITA FOSTER MD May 07, 2019 18:24
[2019-05-07] MEDS ORDERED: DEXTROSE 50% 50 ML SYRINGE IV PRN (18:30)
[2019-05-07] MEDS ORDERED: GLUCOSE 4 GM CHEW TABLET PO PRN (18:30)
[2019-05-07] MEDS ORDERED: GLUCAGON FOR INJ 1 MG VIAL (J1610) SC PRN (18:30)
[2019-05-07] MEDS: GABAPENTIN 300 MG CAP PO SCH (20:32)
[2019-05-07] MEDS: atenoloL 50 MG TAB PO SCH (20:32)
[2019-05-07] MEDS: HumaLOG INSULIN (NovoLOG) PER UNIT SC SCH (20:32)
[2019-05-07] MEDS: HEPARIN SOD (PORCINE) 5000 UNITS/ML VIAL SC SCH (20:33)
[2019-05-07 22:00] VITALS: BP 134/67
[2019-05-07] MEDS: tiZANidine 4 MG TAB PO PRN (22:33)
[2019-05-07] MEDS: PERCOCET 5MG/325MG TAB PO PRN (22:33)
[2019-05-08] MEDS: PERCOCET 5MG/325MG TAB PO PRN ×4 (04:33→23:10)
[2019-05-08 06:00] VITALS: BP 121/71
[2019-05-08] MEDS: HEPARIN SOD (PORCINE) 5000 UNITS/ML VIAL SC SCH ×3 (06:14→21:17)
[2019-05-08 06:43] LABS: HEMATOCRIT 35.9 % (36.0-47.0); HEMOGLOBIN 10.9 g/dl (12.0-15.5); MEAN CORPUSCULAR HGB CONC 30.4 g/dl (32.0-36.5); MEAN CORPUSCULAR VOLUME 89.1 fl (80.0-96.0); PLATELET COUNT, AUTOMATED 323 10^3/uL (150-450); RED BLOOD COUNT 4.03 10^6/uL (4.00-5.40); WHITE BLOOD COUNT 10.3 10^3/uL (4.0-10.0)
[2019-05-08 07:08] LABS: ALT/SGPT 29 U/L (12-78); BILIRUBIN,TOTAL 0.3 MG/DL (0.2-1.0); BLOOD UREA NITROGEN 46 MG/DL (7-18); CALCIUM LEVEL 8.9 MG/DL (8.8-10.2); CARBON DIOXIDE LEVEL 31 MEQ/L (21-32); CHLORIDE LEVEL 107 MEQ/L (98-107); CREATININE FOR GFR 0.87 MG/DL (0.55-1.30); GLOMERULAR FILTRATION RATE > 60.0 (>45); GLUCOSE, FASTING 122 MG/DL (70-100); MAGNESIUM LEVEL 2.1 MG/DL (1.8-2.4); POTASSIUM SERUM 4.3 MEQ/L (3.5-5.1); SODIUM LEVEL 143 MEQ/L (136-145); TOTAL PROTEIN 6.7 GM/DL (6.4-8.2)
[2019-05-08] MEDS: atenoloL 50 MG TAB PO SCH ×2 (08:48→21:16)
[2019-05-08] MEDS: lisinopriL 10 MG TAB PO SCH (08:48)
[2019-05-08] MEDS: GABAPENTIN 300 MG CAP PO SCH ×3 (08:48→21:15)
[2019-05-08] MEDS: HumaLOG INSULIN (NovoLOG) PER UNIT SC SCH ×4 (08:49→21:00)
[2019-05-08] MEDS: DULoxetine 30 MG CAP (CYMBALTA) PO SCH (08:49)
[2019-05-08] MEDS ORDERED: predniSONE 20 MG TAB PO SCH (09:00)
[2019-05-08] MEDS ORDERED: PERCOCET 5MG/325MG TAB PO ONE (11:15)
[2019-05-08 14:00] VITALS: BP 149/84
--- NOTE | 2019-05-08 17:15 | IPNPDOC ---
Date Seen The patient was seen on 05/08/19. Progress Note HISTORY OF PRESENT ILLNESS: 63-year-old female with past medical history of diabetes mellitus, hypertension, chronic back pain secondary to bulging disks in her lumbar spine, presents from home with worsening chronic back pain. She was admitted 2 months ago for the same symptoms, she had run out of her pain medications at that time, pain resolved at that time when home opioids were resumed. She reports continued back pain after discharge in March, received 1 Steroid injection in her back by pain management physician in the interim, reports persistent low back pain despite the injection and opioids, unchanged, resented to the ED today because she could no longer tolerate the pain. She r eports no changes to her chronic pain which is located in her lumbar spine and radiates down both of her legs. She also reports associated weakness in her legs. She has no new complaints at this time, underwent MRI of the lumbar spine in the ED which showed chronic changes and MRI is unchanged from the one done 2 months ago. She denies any short of breath, chest pain, nausea, vomiting, abdominal pain or diarrhea at this time. 05/08/2019 Patient reports the pain is well-controlled, does not feel comfortable going home today as she reports better pain control with Percocet as opposed to Vicodin and she does not have any Percocet at home. 10 point review of system is negative except for above. PHYSICAL EXAMINATION: VITAL SIGNS: Please see below. GENERAL: No distress, obese HEENT: Normocephalic, atraumatic, moist mucous membranes NECK: Supple CARDIOVASCULAR EXAMINATION: S1, S2, no murmurs RESPIRATORY EXAMINATION: Clear to auscultation, no wheezing ABDOMINAL EXAMINATION: Soft, nontender, nondistended, positive bowel sounds EXTREMITIES: Range of motion intact SKIN: No rash NEUROLOGICAL EXAMINATION: Alert and oriented 3, no focal deficits PSYCHIATRIC EXAMINATION: Calm and cooperative LABORATORY DATA: See below. IMAGING: MRI with chronic changes, unchanged from 2 months ago MICROBIOLOGY: Please see below. ASSESSMENT: 63-year-old female with past medical history of chronic back pain, diabetes mellitus, hypertension, presents with persistent chronic back pain. PLAN: 1. Chronic back pain. No acute changes, continue Percocet, Cymbalta and gabapentin, she would like another day of pain control prior to discharge, plan for discharge tomorrow, outpatient pain management follow-up. 2. Diabetes mellitus. Sliding scale insulin before meals and at bedtime 3. Hypertension Continue home lisinopril DVT prophylaxis: Heparin subcutaneous GI prophylax his: Not needed VS, I&O, 24H, Fishbone Vital Signs/I&O Vital Signs Date Time Temp Pulse Resp B/P (MAP) Pulse Ox O2 Delivery O2 Flow Rate FiO2 05/08/19 16:43 18 Room Air 05/08/19 14:00 98.1 74 149/84 (105) 95 I&O- Last 24 Hours up to 6 AM 05/08/19 06:00 Intake Total 580 ml Output Total 400 ml Balance 180 ml Laboratory Data 24H LABS Laboratory Tests 2 05/07/19 19:08: Bedside Glucose (Misc Panel) 102 05/07/19 19:49: Bedside Glucose (Misc Panel) 99 05/08/19 06:07: Nucleated Red Blood Cells % (auto) 0.0, Anion Gap 5L, Glomerular Filtration Rate > 60.0, Calcium Level 8.9, Magnesium Level 2.1, Total Bilirubin 0.3, Aspartate Amino Transf (AST/SGOT) 10, Alanine Aminotransferase (ALT/SGPT) 29, Alkaline Phosphatase 107, Total Protein 6.7, Albumin 3.0L, Albumin/Globulin Ratio 0.81L 05/08/19 12:01: Bedside Glucose (Misc Panel) 167H 05/08/19 16:32: Bedside Glucose (Misc Panel) 209H CBC/BMP Laboratory Tests 05/08/19 06:07 CATRACHITA FOSTER MD May 08, 2019 17:15
[2019-05-08 19:41] VITALS: BP 141/72
[2019-05-08] MEDS: tiZANidine 4 MG TAB PO PRN (21:15)
[2019-05-09 04:59] VITALS: BP 157/85
[2019-05-09] MEDS: HEPARIN SOD (PORCINE) 5000 UNITS/ML VIAL SC SCH ×3 (05:27→21:28)
[2019-05-09] MEDS: PERCOCET 5MG/325MG TAB PO PRN ×3 (05:28→18:23)
[2019-05-09 06:47] LABS: HEMATOCRIT 37.2 % (36.0-47.0); HEMOGLOBIN 11.7 g/dl (12.0-15.5); MEAN CORPUSCULAR HEMOGLOBIN 27.3 pg (27.0-33.0); MEAN CORPUSCULAR HGB CONC 31.5 g/dl (32.0-36.5); MEAN CORPUSCULAR VOLUME 86.9 fl (80.0-96.0); PLATELET COUNT, AUTOMATED 353 10^3/uL (150-450); RED BLOOD COUNT 4.28 10^6/uL (4.00-5.40); WHITE BLOOD COUNT 11.2 10^3/uL (4.0-10.0)
[2019-05-09 07:10] LABS: BLOOD UREA NITROGEN 36 MG/DL (7-18); CARBON DIOXIDE LEVEL 29 MEQ/L (21-32); CHLORIDE LEVEL 106 MEQ/L (98-107); CREATININE FOR GFR 0.68 MG/DL (0.55-1.30); GLOMERULAR FILTRATION RATE > 60.0 (>45); GLUCOSE, FASTING 168 MG/DL (70-100); PHOSPHORUS LEVEL 4.1 MG/DL (2.5-4.9); POTASSIUM SERUM 4.3 MEQ/L (3.5-5.1); SODIUM LEVEL 140 MEQ/L (136-145)
[2019-05-09] MEDS: lisinopriL 10 MG TAB PO SCH (08:37)
[2019-05-09] MEDS: atenoloL 50 MG TAB PO SCH ×2 (08:37→21:28)
[2019-05-09] MEDS: GABAPENTIN 300 MG CAP PO SCH ×3 (08:38→21:26)
[2019-05-09] MEDS: DULoxetine 30 MG CAP (CYMBALTA) PO SCH (08:38)
[2019-05-09] MEDS: HumaLOG INSULIN (NovoLOG) PER UNIT SC SCH ×4 (08:39→21:00)
[2019-05-09 14:00] VITALS: BP 124/68
--- NOTE | 2019-05-09 17:02 | IPNPDOC ---
Date Seen The patient was seen on 05/09/19. Progress Note HISTORY OF PRESENT ILLNESS: 63-year-old female with past medical history of diabetes mellitus, hypertension, chronic back pain secondary to bulging disks in her lumbar spine, presents from home with worsening chronic back pain. She was admitted 2 months ago for the same symptoms, she had run out of her pain medications at that time, pain resolved at that time when home opioids were resumed. She reports continued back pain after discharge in March, received 1 Steroid injection in her back by pain management physician in the interim, reports persistent low back pain despite the injection and opioids, unchanged, resented to the ED today because she could no longer tolerate the pain. She r eports no changes to her chronic pain which is located in her lumbar spine and radiates down both of her legs. She also reports associated weakness in her legs. She has no new complaints at this time, underwent MRI of the lumbar spine in the ED which showed chronic changes and MRI is unchanged from the one done 2 months ago. She denies any short of breath, chest pain, nausea, vomiting, abdominal pain or diarrhea at this time. 05/08/2019 Patient reports the pain is well-controlled, does not feel comfortable going home today as she reports better pain control with Percocet as opposed to Vicodin and she does not have any Percocet at home. 05/09/2019 Patient continues to experience low back pain, chronic, cleared by physical therapy, no acute changes, resistant to going home today, agreeable to go home tomorrow. 10 point review of system is negative except for above. PHYSICAL EXAMINATION: VITAL SIGNS: Please see below. GENERAL: No distress, obese HEENT: Normocephalic, atraumatic, moist mucous membranes NECK: Supple CARDIOVASCULAR EXAMINATION: S1, S2, no murmurs RESPIRATORY EXAMINATION: Clear to auscultation, no wheezing ABDOMINAL EXAMINATION: Soft, nontender, nondistended, positive bowel sounds EXTREMITIES: Range of motion intact SKIN: No rash NEUROLOGICAL EXAMINATION: Alert and oriented 3, no focal deficits PSYCHIATRIC EXAMINATION: Calm and cooperative LABORATORY DATA: See below. IMAGING: MRI with chronic changes, unchanged from 2 months ago MICROBIOLOGY: Please see below. ASSESSMENT: 63-year-old female with past medical history of chronic back pain, diabetes mellitus, hypertension, presents with persistent chronic back pain. PLAN: 1. Chronic back pain. No acute changes, continue Percocet, Cymbalta and gabapentin, she would like another day of pain control prior to discharge, plan for discharge tomorrow, outpatient pain management follow-up being arranged by nursing staff. 2. Diabetes mellitus. Sliding scale insulin before meals and at bedtime 3. Hypertension Continue home lisinopril DVT prophylaxis: Heparin subcutaneous GI prophylax his: Not needed VS, I&O, 24H, Fishbone Vital Signs/I&O Vital Signs Date Time Temp Pulse Resp B/P (MAP) Pulse Ox O2 Delivery O2 Flow Rate FiO2 05/09/19 14:00 97.7 71 18 124/68 (86) 97 Room Air I&O- Last 24 Hours up to 6 AM 05/09/19 06:00 Intake Total 2260 ml Output Total 1050 ml Balance 1210 ml Laboratory Data 24H LABS Laboratory Tests 2 05/08/19 19:42: Bedside Glucose (Misc Panel) 212H 05/09/19 05:38: Nucleated Red Blood Cells % (auto) 0.0, Anion Gap 5L, Glomerular Filtration Rate > 60.0, Calcium Level 9.0, Phosphorus Level 4.1 05/09/19 12:22: Bedside Glucose (Misc Panel) 132H CBC/BMP Laboratory Tests 05/09/19 05:38 CATRACHITA FOSTER MD May 09, 2019 17:02
[2019-05-09 21:18] VITALS: BP 143/72
[2019-05-09] MEDS: tiZANidine 4 MG TAB PO PRN (21:26)
[2019-05-10] MEDS: HEPARIN SOD (PORCINE) 5000 UNITS/ML VIAL SC SCH ×2 (04:46→14:48)
[2019-05-10] MEDS: PERCOCET 5MG/325MG TAB PO PRN ×3 (04:46→17:09)
[2019-05-10 06:34] VITALS: BP 150/73
[2019-05-10] MEDS: HumaLOG INSULIN (NovoLOG) PER UNIT SC SCH ×3 (07:29→17:13)
[2019-05-10] MEDS: GABAPENTIN 300 MG CAP PO SCH ×2 (08:16→16:27)
[2019-05-10] MEDS: DULoxetine 30 MG CAP (CYMBALTA) PO SCH (08:16)
[2019-05-10] MEDS: atenoloL 50 MG TAB PO SCH (08:17)
[2019-05-10 08:18] VITALS: BP 160/86
[2019-05-10] MEDS: lisinopriL 10 MG TAB PO SCH (08:18)
[2019-05-10] MEDS ORDERED: OXYC1TAB23 PO (11:51)
--- NOTE | 2019-05-10 15:01 | DS.PDOC ---
Discharge Summary General Date of Admission May 07, 2019 at 11:16 Date of Discharge 05/10/2019 Attending Physician: CATRACHITA FOSTER MD Discharge Summary PROCEDURES PERFORMED DURING STAY: None. ADMITTING DIAGNOSES: 1. Chronic back pain. DISCHARGE DIAGNOSES: 1. Chronic back pain. COMPLICATIONS/CHIEF COMPLAINT: Chronic Low Back Pain, Diabetes,Hypertension. HISTORY OF PRESENT ILLNESS: 63-year-old female with past medical history of chronic back pain, diabetes, hypertension, was admitted for uncontrolled chronic back pain. Patient reports pain was not well controlled on current regimen, treated with Percocet in the hospital, reports good pain control. Patient has remained at her baseline throughout hospitalization, no acute changes, will be discharged with outpatient follow-up with pain management physician. Patient will be provided 3 days of Percocet until she can make it to her doctor's appoin tment. HOSPITAL COURSE: As above. DISCHARGE MEDICATIONS: Please see below. ALLERGIES: Please see below. PHYSICAL EXAMINATION: VITAL SIGNS: Please see below. GENERAL: No distress HEENT: Normocephalic, atraumatic, moist mucous membranes NECK: Supple CARDIOVASCULAR EXAMINATION: S1, S2, no murmurs RESPIRATORY EXAMINATION: Clear to auscultation, no wheezing ABDOMINAL EXAMINATION: Soft, nontender, nondistended, positive bowel sounds EXTREMITIES: Range of motion intact SKIN: No rash NEUROLOGICAL EXAMINATION: Alert and oriented 3, no focal deficits PSYCHIATRIC EXAMINATION: Calm and cooperative LABORATORY DATA: Please see below. IMAGING: MRI lumbar spine with chronic changes, no acute events PROGNOSIS: Fair ACTIVITY: As tolerated. DIET: Cardiac with consistent carbs DISCHARGE PLAN: Follow with pain management physician and PCP in 1-2 weeks DISPOSITION: Home. DISCHARGE INSTRUCTIONS: 1. As above. DISCHARGE CONDITION: Stable. TIME SPENT ON DISCHARGE: Greater than 32 minutes. Vital Signs/I&Os Vital Signs Date Time Temp Pulse Resp B/P (MAP) Pulse Ox O2 Delivery O2 Flow Rate FiO2 05/10/19 11:54 18 05/10/19 08:18 160/86 05/10/19 08:17 68 05/10/19 06:34 98.9 92 Room Air I&O- Last 24 Hours up to 6 AM 05/10/19 06:00 Intake Total 1540 ml Output Total 200 ml Balance 1340 ml Laboratory Data Labs 24H Laboratory Tests 2 05/09/19 17:26: Bedside Glucose (Misc Panel) 142H 05/09/19 21:15: Bedside Glucose (Misc Panel) 148H 05/10/19 06:30: Bedside Glucose (Misc Panel) 99 05/10/19 11:50: Bedside Glucose (Misc Panel) 132H FSBS Laboratory Tests Test 05/09/19 17:26 05/09/19 21:15 05/10/19 06:30 05/10/19 11:50 Range/Units Bedside Glucose (Misc Panel) 142 148 99 132 80-115 MG/DL Discharge Medications Scheduled Atenolol (Atenolol) 50 Mg Tablet, 50 MG PO BID, (Reported) Duloxetine Hcl (Duloxetine HCl) 60 Mg Capsule.dr, 60 MG PO DAILY, (Reported) Gabapentin (Gabapentin) 600 Mg Tab, 600 MG PO TID, (Reported) Lisinopril (Lisinopril) 10 Mg Tablet, 10 MG PO DAILY, (Reported) Scheduled PRN Aspirin/Acetaminophen/Caffeine (Excedrin Migraine Caplet) 1 Each Tablet, 2 TAB PO DAILY PRN for HEADACHE, (Reported) Hydrocodone/Acetaminophen (Hydrocodone-Acetamin 10-325 mg) 1 Each Tablet, 1 TAB PO Q6H PRN for PAIN, (Reported) Oxycodone HCl/Acetaminophen (Oxycodone-Acetaminophen 5-325) 1 Each Tablet, 1 TAB PO Q6H PRN for PAIN Tizanidine HCl (Tizanidine HCl) 4 Mg Tablet, 4 MG PO QHS PRN for SPASMS, (Reported) Allergies Coded Allergies: No Known Allergies (Unverified , 10/15/18) CATRACHITA FOSTER MD May 10, 2019 15:01
== END 2019-05-10 17:25 | disposition home or self-care (01) ==
LOC: M ED 11:15 → EDBD 11:15 → M ED INP 11:16 → M MS5PR 18:49
PROVIDERS: ADMIT Internal Medicine; ATTEND Internal Medicine
DX: M54.5 Low back pain (principal); M48.062 Spinal stenosis, lumbar region with neurogenic claudication; M51.06 Intervertebral disc disorders with myelopathy, lumbar region; E11.9 Type 2 diabetes mellitus without complications; I10 Essential (primary) hypertension; Z79.899 Other long term (current) drug therapy
CPT/HCPCS: 36415; 72148; 80048; 80053; 83735; 84100; 85027; 85652; 96372; 96374; 97161; 99284; J1885; J2270; J2800

== ENCOUNTER → 2019-05-12 | Outpatient (CLI) | payer OTHER, MEDICAID ==
--- NOTE | 2019-05-14 00:07 | ECWPNPC ---
PATIENT NAME: HANNA GARVIN : 1955 GENDER: FEMALE VISIT DATE: 05/12/2019 DISCHARGE DATE: 05/12/19 1431 VISIT LOCKED DATE TIME: PHYSICIAN: BRIDGETTE CALDWELL RESOURCE: BRIDGETTE CALDWELL REASON FOR APPOINTMENT 1. W/C [facility] DISCHARGE 05/10/19 HISTORY OF PRESENT ILLNESS HISTORY OF PRESENT ILLNESS: PAIN THE PATIENT DESCRIBES THE PAIN... 63-YEAR-OLD FEMALE IN FOR CHRONIC PAIN FOLLOW-UP. PATIENT REPORTS INCREASED PAIN AND STATES THE HYDROCODONE IS CURRENTLY NOT COVERING AND/OR MANAGING HER PAIN. SHE RATES HER PAIN CURRENTLY AT AN 8 OUT OF 10 AND DESCRIBES IT ACHING, BURNING, SHARP, STABBING, AND CONTINUOUS. PATIENT STATES SHE WAS INPATIENT RECENTLY FOR PAIN EXACERBATION IN THE TREATED HER WITH PERCOCET 5/325 MG 2 TABS EVERY 6 HOURS NEEDED FOR PAIN AND SHE FEELS THIS HELPED TO MANAGE HER PAIN. 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 THE PATIENT SAYS SHE WAS HOSPITALIZED FOR SEVERAL DAYS UNTIL BEING RELEASED TODAY DUE TO SEVERE PAIN. THE PATIENT SAYS HER PAIN IS MAKING IT VERY DIFFICULT FOR HER TO WALK AND MOVE AROUND. FALL RISK SCREENING: SCREENING :NO FALLS REPORTED IN THE LAST YEAR CURRENT MEDICATIONS TAKING OXYCODONE-ACETAMINOPHEN 7.5-325 MG TABLET 1 TABLET NEEDED ORALLY FOR PAIN EVERY 8 HRS MDD3 TAKING ATENOLOL 25 MG TABLET 1 TABLET ORALLY TWICE A DAY TAKING CYMBALTA 60 MG CAPSULE DELAYED RELEASE PARTICLES TAKE ONE CAPSULE BY MOUTH ORALLY BID TAKING LISINOPRIL 40 MG TABLET 1 TABLET ORALLY ONCE A DAY TAKING GLUCOMETER DIRECTED TAKING BLOOD GLUCOSE TEST - STRIP DIRECTED IN VITRO DAILY TAKING LANCETS - MISCELLANEOUS DIRECTED DAILY TAKING METFORMIN HCL 500 MG TABLET 1 TABLET WITH A MEAL ORALLY TWICE DAILY TAKING GABAPENTIN 600 MG TABLET 1 CAP ORALLY TID TAKING TIZANIDINE HCL 4 MG TABLET 1 TABLET NEEDED ORALLY BEFORE BEDTIME MAY REPEAT IN 5 HRS MDD2 TAKING HYDROCODONE-ACETAMINOPHEN 10-325 MG TABLET 1 TABLET NEEDED ORALLY EVERY 6 HOURS NEEDED MDD3 NOT-TAKING LASIX 40 MG TABLET 1 TABLET ORALLY ONCE A DAY NOT-TAKING HYDROCHLOROTHIAZIDE 50 MG TABLET 1 TABLET ORALLY ONCE A DAY NOT-TAKING FLEXERIL 10 MG TABLET 1 TABLET ORALLY THREE TIMES A DAY NOT-TAKING IRON 325 (65 FE) MG TABLET 1 TABLET ORALLY ONCE A DAY NOT-TAKING HYDROCODONE-ACETAMINOPHEN 10-325 MG TABLET 1 TABLET NEEDED ORALLY FOR PAIN EVERY 8 HRS MDD3 NOT-TAKING OXYCODONE HCL 5 MG TABLET 1 TABLET NEEDED ORALLY FOR PAIN EVERY 8 HRS MDD3 NOT-TAKING ATENOLOL 100 MG TABLET TAKE ONE TABLET BY MOUTH TWICE A DAY , NOTES: DUPLICATE NOT-TAKING TOPAMAX 200 MG TABLET 1 TABLET ORALLY BEFORE BEDTIME NOT-TAKING PREMPRO 0.625-5 MG TABLET 1 TABLET ORALLY ONCE A DAY NOT-TAKING LYRICA 200 MG CAPSULE 1 CAPSULE ORALLY TWICE A DAY NOT-TAKING ATORVASTATIN CALCIUM 40 MG TABLET 1 TABLET ORALLY ONCE A DAY NOT-TAKING MACROBID 100 MG CAPSULE 1 CAPSULE WITH FOOD ORALLY EVERY 12 HRS MEDICATION LIST REVIEWED AND RECONCILED WITH THE PATIENT PAST MEDICAL HISTORY HTN RA LOW BACK PAIN MIGRAINES EDEMA IRON DEFICIENCY ANEMIA DIABETES CHRONIC BACK PAIN ALLERGIES N.K.D.A. SURGICAL HISTORY RT ANKLE ORIF, REVISED 2011, 05/13 CHOLECYSTECTOMY 2011 FAMILY HISTORY FATHER: 59 YRS, HEART ATTACK, DIAGNOSED WITH UNSPECIFIED HEART DISEASE MOTHER: 58 YRS, CANCER METS UNKNOWN ORIGIN, OTHER MALIGNANT NEOPLASM OF UNSPECIFIED SITE SIBLINGS: ALIVE, 3 BROTHERS , DIABETES, HYPERTENSION SON(S): ALIVE DAUGHTER(S): ALIVE 10 BROTHER(S) , 2 SISTER(S) . 1 SON(S) , 1 DAUGHTER(S) - HEALTHY. NEGATIVE FOR ANY UROLOGIC DISEASE. SOCIAL HISTORY GENERAL: TOBACCO USE ARE YOU A:NONSMOKER HIV / HEP-C SCREENING HIV TEST OFFERED TO PATIENT:YES DATE OFFERED:05/06/2018 TEST ACCEPTED:NO HEP-C TEST OFFERED TO PATIENT:YES DATE OFFERED:05/06/2018 REASON:PATIENT DECLINED TEST ACCEPTED:NO REASON:PATIENT DECLINED BROCHURE PROVIDED TO PATIENTNO OTHERS AT HOME: OTHER NON-RELATIVE. DIET: REGULAR. LANGUAGE [place]. DOMESTIC VIOLENCE NONE. BMI CARE GOAL FOLLOW-UP ABOVE NORMAL BMI FOLLOW-UPDIETARY MANAGEMENT EDUCATION, GUIDANCE, AND COUNSELING RECREATIONAL DRUG USE DENIES. EXERCISE: NONE. LEARNING BARRIERS / SPECIAL NEEDS CHANGE FROM LAST VISIT?NO BARRIERS TO LEARNING?NO HEARING IMPAIRED?NO VISION IMPAIRED?NO COGNITIVELY IMPAIRED?NO READINESS TO LEARN?YES LEARNING PREFERENCES?NO LEARNING CAPABILITIES PRESENT?YES EMOTIONAL BARRIERS?NO SPECIAL DEVICES?NO AIRCRAFT PARTS ASSEMBLER NEEDED?NO PAIN CLINIC PFS, CLERGY, PUBLIC HEALTH REFERRALS WAS THE PROVIDER NOTIFIED OF ANY PERTINENT INFO?YES HAS THE PATIENT BEEN EDUCATED REGARDING HIS/HER PLAN OF CARE?YES HAS THE PATIENT BEEN EDUCATED REGARDING PAIN, THE RISK FOR PAIN, THE IMPORTANCE OF EFFECTIVE PAIN MANAGEMENT, AND THE PAIN ASSESSMENT PROCESS?YES LATEX QUESTIONNAIRE LATEX ALLERGY : HAVE YOU EVER DEVELOPED ANY TYPE OF REACTION AFTER HANDLING LATEX PRODUCTS SUCH RUBBER GLOVES, CONDOMS, DIAPHRAGMS, BALLOONS, SOCKS, OR UNDERWEAR?NO LATEX ALLERGY : HAVE YOU EVER DEVELOPED ANY TYPE OF REACTION DURING OR AFTER DENTAL APPOINTMENT, VAGINAL/RECTAL EXAMINATION, SURGICAL PROCEDURE, OR ANY OTHER EXPOSURE?NO LATEX RISK : HAVE YOU EVER HAD ANY DIFFICULTY BREATHING OR HIVES AFTER EATING OR HANDLING ANY FRUITS, OR VEGETABLES; SUCH KIWI, BANANAS, STONE FRUITS, OR CHESTNUTSNO LATEX RISK : DO YOU HAVE A PREVIOUS PERSONAL HISTORY OF MORE THAN NINE SURGERIES, SPINA BIFIDA, OR REPEATED CATHERIZATIONS? NO LATEX RISK : ARE YOU FREQUENTLY EXPOSED TO LATEX PRODUCTS IN YOUR OCCUPATION?NO DATE ASKED : 05/12/2019 CAFFEINE CAFFEINE USE?YES HOW OFTEN AND HOW MUCH? 1 COFFEE DAILY, OCCASIONAL SODA ADVANCE DIRECTIVE ADVANCE DIRECTIVE DISCUSSED WITH PATIENT:YES PATIENT DECLINES HCP INFORMATION AT THIS TIME. DECLINES ASSISTANCE WITH FORM. LATTER-DAY NO ALEVISM BELIEFS THAT WOULD IMPACT HEALTH CARE. MARITAL STATUS: SINGLE. ALCOHOL SCREENING DID YOU HAVE A DRINK CONTAINING ALCOHOL IN THE PAST YEAR?NO POINTS0 INTERPRETATIONNEGATIVE OCCUPATION: DISABLED. SEXUAL HX HAD SEX IN THE LAST 12 MONTHS (VAGINAL, ORAL, OR ANAL)?: YES, WITH: MEN ONLY, USE PROTECTION?: NO, HAVE YOU EVER HAD AN STD?: NO. REVIEWED WITH PT 05/14/18 1149 BVREVIEWED WITH PATIENT 05/17/18 1617 JSREVIEWED WITH PT 06/07/18 1453 BVREVIEWED WITH PT 08/13/28 0930 LASREVIEWED WITH PT 10/05/18 1337 LASREVIEWED WITH PATIENT 10/15/18 0954 JS REVIEWED WITH PATIENT 04/25/19 1023 JSREVIEWED WITH PATIENT 05-12-19 DS. HOSPITALIZATION/MAJOR DIAGNOSTIC PROCEDURE SURGERY RELATED REVIEW OF SYSTEMS REVIEWED BY: PROVIDER: SARAHI GARCIA . CONSTITUTIONAL: ANY CHANGE IN YOUR MEDICAL CONDITION? NO . CHILLS NO . FEVER NO . INFECTION: DO YOU HAVE NEW INFECTIONS? NO . DO YOU HAVE HISTORY OF MRSA? NO . MUSCULOSKELETAL: ANY NEW PATTERNS OF PAIN OR NUMBNESS? YES, PT STATES THAT SHE IS HAVING STABBING, BURNING, LOW BACK AND RADIATING DOWN BOTH LEGS . GASTROENTEROLOGY: ANY NEW CHANGE IN BOWEL CONTROL? NO . GENITOURINARY: ANY NEW CHANGE IN BLADDER CONTROL? NO . IS THERE A CHANCE YOU COULD BE ? NO . HEMATOLOGY/LYMPH: DO YOU TAKE ANY BLOOD THINNERS? (FOR EXAMPLE- COUMADIN, PLAVIX, AGGRENOX, PLATEL, PRADAXA, OR XARELTO) NO . WHEN WAS YOUR LAST DOSE? DATE: TIME: . NEUROLOGY: HAVE YOU FALLEN IN THE PAST 12 MONTHS? NO . ANY NEW EXTREMITY NUMBNESS OR WEAKNESS? NO . CARDIOLOGY: DO YOU HAVE A PACEMAKER OR DEFIBRILLATOR? NO . RESPIRATORY: HAVE YOU BEEN SICK IN THE PAST WEEK? NO . FEVER NO . FLU LIKE SYMPTOMS? NO . COUGH NO . INTEGUMENTARY: DO YOU HAVE ANY RASHES OR OPEN SORES? NO . ALLERGIC/IMMUNO: ARE YOU ALLERGIC TO IV DYE? NO . ANY NEW ALLERGIES? NO . PSYCHIATRIC: DO YOU HAVE THOUGHTS OF HURTING YOURSELF OR SOMEONE ELSE? NO . ARE YOU ABUSED, NEGLECTED, OR IN AN UNSAFE ENVIRONMENT? NO . ENDOCRINOLOGY: ARE YOU DIABETIC? YES, FSBS 132 05/11/19 . OTHER: DO YOU NEED ANY PRESCRIPTIONS? YES, OXYCODONE . IF YES, PLEASE LIST: ____ . ANY NEW PROBLEMS WITH YOUR MEDICATIONS? NO . WHEN DID YOU LAST EAT? ____ . WHEN DID YOU LAST DRINK? ____ . WHAT DID YOU LAST DRINK? ____ . NAME OF PERSON DRIVING YOU HOME? ____ . DO YOU HAVE ANY OTHER QUESTIONS OR CONCERNS NO . VITAL SIGNS WT 252.0 LBS, HT 67.5 IN, BMI 38.88 INDEX, BP 179/82 MM HG, HR 93 /MIN, RR 18 /MIN, TEMP 96.7 F, OXYGEN SAT % 96%, SAFE IN ENV? (Y/N) Y, NA INITIALS AW 1325, REVIEWED BY: MARV. EXAMINATION GENERAL EXAMINATION: GENERALNO ACUTE DISTRESS, WELL NOURISHED AND HYDRATED. PSYCHAPPROPRIATE MOOD AND AFFECT . LUNGS:CLEAR TO AUSCULTATION BILATERALLY, NO WHEEZES, RHONCHI, RALES. HEART:NO MURMURS, REGULAR RATE AND RHYTHM. ASSESSMENTS INTERVERTEBRAL DISC DISORDER WITH RADICULOPATHY OF LUMBOSACRAL REGION - M51.17 (PRIMARY) TREATMENT INTERVERTEBRAL DISC DISORDER WITH RADICULOPATHY OF LUMBOSACRAL REGION REFILL OXYCODONE-ACETAMINOPHEN TABLET, 7.5-325 MG, 1 TABLET NEEDED, ORALLY FOR PAIN, EVERY 8 HRS MDD3, 30 DAYS, 90, REFILLS 0 STOP HYDROCODONE-ACETAMINOPHEN TABLET, 10-325 MG, 1 TABLET NEEDED, ORALLY, EVERY 6 HOURS NEEDED MDD3 NOTES: PT WILL BRING IN HYDROCODONE AT NEXT FOLLOW UP APPT FOR DESTRUCTION PER MD ORDER. DS. CLINICAL NOTES: 63-YEAR-OLD FEMALE IN FOR CHRONIC PAIN FOLLOW-UP. GIVEN PRESENTING SYMPTOMS AND RESULTS OF PHYSICAL EXAMINATION RECOMMENDED STOPPING HYDROCODONE AND STARTING OXYCODONE 7.5/325 MG 1 TAB 3 TIMES A DAY NEEDED FOR PAIN. PATIENT HAS EXPRESSED UNDERSTANDING OF AND WAS IN AGREEMENT WITH TREATMENT PLAN. GIVEN TIME TO ASK QUESTIONS AND EXPRESS CONCERNS., ISTOP REGISTRY REVIEWED AND DEMONSTRATES COMPLLIANCE. (REF # [id number] ) BRINGS IN MEDICATIONS WHICH IS APPROPRIATE FOR WHAT WAS DISPENSED. RECENT URINE TOXICOLOGY REVIEWED. NO UNAUTHORIZED MEDICATIONS. NO ILLICIT SUBSTANCES AND PRESCRIBED MEDICATIONS WERE PRESENT. PROCEDURES PN WORKMANS' COMP OPINION IN YOUR OPINION, WAS THE INCIDENT THAT THE PATIENT DESCRIBED THE COMPETENT MEDICAL CAUSE OF THIS INJURY/ILLNESS? YES ARE THE PATIENT'S COMPLAINTS CONSISTENT WITH HIS/HER HISTORY OF THE INJURY/ILLNESS? YES IS THE PATIENT'S HISTORY OF THE INJURY/ILLNESS CONSISTENT WITH YOUR OBJECTIVE FINDING? YES WHAT IS THE PERCENTAGE OF TEMPORARY IMPAIRMENT? MODERATE TO MARKED = 66.7% IS THE PATIENT WORKING? NO DOCTOR ON SITE: RADHA TAI MD PREVENTIVE MEDICINE PAIN CLINIC TEACHING: MEDICATIONS STOP HYDROCODONE AND START OXYCODONE. REVIEWED WRITTEN AND VERBAL INSTRUCTIONS WITH PATIENT. NOTIFIED PT THAT SHE NEEDS TO BRING IN HYDROCODONE AT NEXT FOLLOW UP APPT TO BE DESTRYED, DS PT ACKNOWLEDGED UNDERSTANDING. DS. THE PATIENT HAS BEEN EDUCATED REGARDING HIS/HER PLAN OF CARE : REVIEWED WRITTEN AND VERBAL INSTRUCTIONS WITH PT REGARDING PLAN OF CARE, PT ACKNOWLEDGED UNDERSTANDING. MARV PROCEDURE CODES FA211 ESTABILISHED PATIENT [facility] CHARGE DISPOSITION & COMMUNICATION FOLLOW UP AFTER UPCOMING PROCEDURE (REASON: BACK PAIN MEDICATION) ELECTRONICALLY SIGNED BY MELY CUELLO ON 05/13/2019 AT 03:30 PM EST DISCLAIMER : THIS IS A VISIT SUMMARY EXTRACTED FROM THE [employer] CHART. IT IS NOT A COPY OF THE [employer] PROGRESS NOTE. MICHAEL
== END ==
LOC: M PAIN 13:15
PROVIDERS: ATTEND Family Medicine
DX: M51.17 Intervertebral disc disorders with radiculopathy, lumbosacral region (principal); G89.29 Other chronic pain; I10 Essential (primary) hypertension; G43.909 Migraine, unspecified, not intractable, without status migrainosus; E11.9 Type 2 diabetes mellitus without complications; Z79.84 Long term (current) use of oral hypoglycemic drugs; Z79.899 Other long term (current) drug therapy

== ENCOUNTER 2019-05-30 01:01 | Emergency (ER) | payer MEDICAID, OTHER ==
[~2019-05-30] VITALS: Ht 172.7 cm; Wt 117.7 kg
[2019-05-30] MEDS ORDERED: MORPHINE 2 MG/ML 1ML VIAL (J2270) IV ONE ×2 (02:30→05:45)
[2019-05-30] MEDS ORDERED: NS 1,000 ML IV ONE (02:30)
[2019-05-30 02:43] LABS: BASO # 0.1 10^3/uL (0.0-0.2); BASO % 0.6 % (0.0-1.0); EOS # 0.1 10^3/uL (0.0-0.5); EOS % 0.8 % (0.0-3.0); HEMATOCRIT 36.8 % (36.0-47.0); HEMOGLOBIN 11.6 g/dl (12.0-15.5); LYMPH # 1.2 10^3/uL (1.5-5.0); MEAN CORPUSCULAR HEMOGLOBIN 27.4 pg (27.0-33.0); MEAN CORPUSCULAR HGB CONC 31.5 g/dl (32.0-36.5); MONO # 1.2 10^3/uL (0.0-0.8); MONO % 11.2 % (0.0-5.0); NEUTROPHILS # 7.9 10^3/uL (1.5-8.5); NEUTROPHILS % 76.1 % (36.0-66.0); PLATELET COUNT, AUTOMATED 302 10^3/uL (150-450); RED BLOOD COUNT 4.23 10^6/uL (4.00-5.40); WHITE BLOOD COUNT 10.4 10^3/uL (4.0-10.0)
[2019-05-30] MEDS ORDERED: ONDANSETRON 4MG/2ML VIAL (J2405) As Ordered ONE (02:51)
[2019-05-30 02:55] LABS: INR 1.13; PROTHROMBIN TIME 14.2 SECONDS (11.8-14.0)
[2019-05-30 03:12] LABS: BLOOD UREA NITROGEN 10 MG/DL (7-18); CALCIUM LEVEL 8.2 MG/DL (8.8-10.2); CARBON DIOXIDE LEVEL 28 MEQ/L (21-32); CHLORIDE LEVEL 105 MEQ/L (98-107); GLOMERULAR FILTRATION RATE > 60.0 (>45); GLUCOSE, FASTING 122 MG/DL (70-100); POTASSIUM SERUM 4.5 MEQ/L (3.5-5.1); SODIUM LEVEL 141 MEQ/L (136-145)
[2019-05-30 03:13] LABS: ALBUMIN 3.1 GM/DL (3.2-5.2); ALT/SGPT 30 U/L (12-78); BILIRUBIN,DIRECT 0.1 MG/DL (0.0-0.2); BILIRUBIN,TOTAL 0.6 MG/DL (0.2-1.0); ETHYL ALCOHOL (ETHANOL) < 0.003 % (0.000-0.010); LIPASE 38 U/L (73-393); TOTAL PROTEIN 6.8 GM/DL (6.4-8.2)
[2019-05-30 03:15] LABS: APPEARANCE, URINE CLOUDY (CLEAR); BACTERIA, URINE AUTO 3+ (NEGATIVE); BILIRUBIN, URINE AUTO NEGATIVE (NEGATIVE); BLOOD, URINE BLOOD NEGATIVE (NEGATIVE); COLOR, URINE YELLOW (YELLOW); GLUCOSE, URINE (UA) AUTO NEGATIVE (NEGATIVE); KETONE, URINE AUTO NEGATIVE (NEGATIVE); LEUKOCYTE ESTERASE, URINE AUTO 3+ (NEGATIVE); MUCUS, URINE SMALL (NEGATIVE); NITRITE, URINE AUTO POSITIVE (NEGATIVE); PROTEIN, URINE AUTO 1+ mg/dL (NEGATIVE); RBC, URINE AUTO 26 /HPF (0-3); SPECIFIC GRAVITY URINE AUTO 1.018 (1.002-1.035); SQUAMOUS EPITHELIAL CELL UR AU 3 /HPF (0-6); WBC, URINE AUTO TNTC /HPF (0-3)
[2019-05-30] MEDS ORDERED: ISOVUE-370 76% 100ML VIAL (Q9967) As Ordered ONE (03:41)
[2019-05-30] MEDS ORDERED: ONDANSETRON 4MG/2ML VIAL (J2405) IV ONE (04:30)
[2019-05-30] MEDS ORDERED: KETOROLAC 30 MG/ML VIAL (J1885) As Ordered ONE (04:38)
[2019-05-30] MEDS ORDERED: KETOROLAC 30 MG/ML VIAL (J1885) IV ONE (04:45)
[2019-05-30] MEDS ORDERED: cefTRIAXone SOD 1 GM in D5W MINI-BAG PLUS 50 ML IV ONE (05:00)
[2019-05-30] MEDS ORDERED: FLAG500T PO (05:36)
[2019-05-30] MEDS ORDERED: CIPR-249 PO (05:36)
[2019-05-30 06:08] VITALS: BP 169/82
--- NOTE | 2019-05-30 08:25 | REP ---
Clinical: Trauma. Technique: Axial contrast enhanced images from the thoracic inlet to the upper abdomen with coronal and sagittal re-formations using 100 ml Isovue 370 intravenous contrast material. Comparison: 08/23/2013. Findings: There is chronic elevation to the right hemidiaphragm along with minimal chronic fibroatelectatic changes involving the right middle lobe which remain essentially stable. Trace right basilar atelectasis is appreciated. Small perifissural noncalcified densities along the right minor fissure measure up to approximately 7 mm and represent new finding. 6 mm non solid perifissural nodule along the left major fissure remain stable and is consistent with chronic scar. No consolidation. No effusion. No pneumothorax. Tracheobronchial tree is patent. Mediastinum demonstrates relatively normal thoracic aorta and heart/pericardium. The pulmonary artery is dilated to 4.3 cm and suggests moderate pulmonary hypertension. Surrounding musculoskeletal structures demonstrate old healed left rib fractures. Limited upper abdomen demonstrates normal bilateral adrenal glands, evidence for prior cholecystectomy, and incompletely identified right renal cyst. Impression: 1. Primarily chronic changes involving the bilateral lung blair including elevation to the right hemidiaphragm and minimal right middle lobe scarring. 2. New 7 mm perifissural density along the right minor fissure may warrant 6-9 month follow-up examination. 3. No further acute mediastinal or pleuroparenchymal process. 4. Findings to suggest pulmonary hypertension with dilated pulmonary arterial trunk and bilateral pulmonary arteries. Electronically Signed by Sarbjit Parnell MD 05/30/2019 08:17 A
[2019-05-30] MEDS ORDERED: BACT800T5 PO (08:27)
--- NOTE | 2019-05-30 08:28 | ED PDOC ---
Post-Departure Follow-Up call from pharmacy. cipro interacts negatively w another med. will instead rx ba ctrim w flagyl. pharmacist approves. Zandra Clifford MD May 30, 2019 08:28
--- NOTE | 2019-05-30 08:29 | REP ---
CT brain: 05/30/2019. Indication: Head trauma. Comparison: None. Technique: Unenhanced axial CT images of the brain were obtained from skull base to vertex with coronal reconstructions provided. Findings: There is no acute intracranial hemorrhage, acute cortical infarction, mass effect, hydrocephalus or acute calvarial fracture. Diffuse volume loss is present. Patchy areas of white matter hypoattenuation are present within the cerebral hemispheres. The paranasal sinuses and mastoid air cells are essentially clear. Impression: No acute intracranial process. Volume loss and sequelae of chronic microangiopathic ischemic disease. Electronically Signed by Jb Bardales DO 05/30/2019 08:21 A
--- NOTE | 2019-05-30 08:30 | REP ---
Clinical: Trauma. Technique: Axial contrast enhanced images from the lung bases to the pubic symphysis coronal and sagittal re-formations using 100 ml Isovue 370 intravenous contrast material. Findings: There is no evidence for solid organ injury. Mild hepatosplenomegaly suggested without focal hepatic or splenic lesion identified. Pancreas, and bilateral adrenal glands appear normal. A 2 mm nonobstructing left renal calculus is suggested and a 3.0 cm right renal cyst is identified. The kidneys are otherwise relatively age-appropriate and without perinephric stranding or hydronephrosis. The enteric system is without obstruction or acute inflammatory process. Normal terminal ileum, cecum and appendix are identified in the right lower quadrant. Few scattered sigmoid diverticula noted without acute diverticulitis. Pelvis demonstrates normal bladder and age-appropriate uterus/adnexa. No ascites. No free air. No adenopathy. Atherosclerotic changes to the aorta and vasculature noted without aneurysm or dissection. Musculoskeletal structures demonstrate degenerative changes without acute injury. Impression: 1. Mild hepatosplenomegaly 2. 3 cm simple right renal cyst and 2 mm nonobstructing left renal calculus. 3. Minimal sigmoid diverticulosis without acute diverticulitis. 4. No evidence for acute trauma. No acute abdominopelvic pathology. Electronically Signed by Sarbjit Parnell MD 05/30/2019 08:22 A
--- NOTE | 2019-05-30 08:38 | REP ---
CT cervical spine: 05/30/2019. Indication: Cervical spine trauma. Comparison: None. Technique: Unenhanced axial CT images of the cervical spine were obtained with coronal and sagittal reconstructions provided. Findings: There is no acute fracture, subluxation or dislocation. There is straightening of the cervical spine lordosis. There is partial fusion of C3 and C4 particularly on the right. There is minimal anterolisthesis of C4 and C5. Disc space narrowing and disc osteophyte complexes are noted most pronounced at C5/C6 and C6/C7. No areas of severe spinal canal narrowing are detected. There is no evidence of hemorrhage or additional acute pathology within the spinal canal. Impression: No acute osseous injury of the cervical spine. Degenerative sequelae as described without severe spinal canal narrowing detected. Electronically Signed by Jb Bardales DO 05/30/2019 08:30 A
[2019-05-30] MEDS ORDERED: LIDO5DIS41 TOP (14:47)
[2019-05-30] MEDS ORDERED: NORC1TAB7 PO (14:53)
--- NOTE | 2019-06-05 17:46 | ED PDOC ---
Post-Departure Follow-Up nicolas ingram faxed formal report of ct chest for fu verónicag Zandra Greenwood MD Jun 05, 2019 17:46
== END 2019-05-30 06:10 | disposition home or self-care (01) ==
LOC: M ED 01:01
DX: K57.92 Diverticulitis of intestine, part unspecified, without perforation or abscess without bleeding (principal); N39.0 Urinary tract infection, site not specified; S20.212A Contusion of left front wall of thorax, initial encounter; V49.49XA Driver injured in collision with other motor vehicles in traffic accident, initial encounter; Y92.89 Other specified places as the place of occurrence of the external cause; I10 Essential (primary) hypertension; E10.9 Type 1 diabetes mellitus without complications; G89.29 Other chronic pain; M54.9 Dorsalgia, unspecified; Z79.899 Other long term (current) drug therapy; Z79.82 Long term (current) use of aspirin
CPT/HCPCS: 70450; 71260; 72125; 74177; 80048; 80076; 81001; 83690; 85025; 85610; 85730; 87088; 87186; 96361; 96365; 96375; 96376; 99284; G0480; J0696; J1885; J2270; J2405; Q9967

== ENCOUNTER 2019-05-30 11:44 | Emergency (ER) | payer MEDICAID, OTHER ==
[~2019-05-30] VITALS: Ht 172.7 cm; Wt 13.2 kg
[~2019-05-30 11:44] MED LIST changes: +BACT800T5 PO; +CIPR-249 PO; +FLAG500T PO
[2019-05-30] MEDS ORDERED: KETOROLAC 30 MG/ML VIAL (J1885) IM ONE (13:15)
--- NOTE | 2019-05-30 13:59 | REP ---
CT lumbar spine: 05/30/2019. Indication: Low back pain. Comparison: 03/07/2019. Technique: Unenhanced axial CT images of the lumbar spine were obtained with sagittal and coronal reconstructions provided. Findings: There is minimal retrolisthesis of L4-L5. Vacuum disc phenomenon is present and age intervertebral disc level save for L3/L4. Significant endplate degenerative changes are present at L2/L3. Multilevel disc and spur complexes are present most pronounced at L2/L3 as well as L5/S1 without severe spinal canal narrowing detected by this technique. There is no acute fracture, subluxation or dislocation. Please see CT abdomen/pelvis report for description of paraspinal soft tissues. Impression: No acute osseous lumbar spine injury. Multilevel degenerative sequelae most pronounced at L2/L3. Electronically Signed by Jb Bardales DO 05/30/2019 01:50 P
[2019-05-30] MEDS ORDERED: NORCO, ANEXSIA 5/325MG TABLET (HYDROcodone/ACETAMINOPHEN) PO ONE (14:00)
[2019-05-30] MEDS ORDERED: LIDO5DIS41 TOP (14:47)
[2019-05-30] MEDS ORDERED: NORC1TAB7 PO (14:53)
[2019-05-30 15:18] VITALS: BP 153/70
== END 2019-05-30 15:14 | disposition home or self-care (01) ==
LOC: M ED 11:44 → EDBD 11:44 → M ED 15:14
DX: S39.012A Strain of muscle, fascia and tendon of lower back, initial encounter (principal); X58.XXXA Exposure to other specified factors, initial encounter; Y92.89 Other specified places as the place of occurrence of the external cause; M51.36 Other intervertebral disc degeneration, lumbar region; E11.9 Type 2 diabetes mellitus without complications; I10 Essential (primary) hypertension; K21.9 Gastro-esophageal reflux disease without esophagitis; F33.9 Major depressive disorder, recurrent, unspecified; F41.9 Anxiety disorder, unspecified; Z79.899 Other long term (current) drug therapy; Z79.82 Long term (current) use of aspirin
CPT/HCPCS: 72131; 96372; 99284; J1885

== ENCOUNTER → 2019-06-21 | Outpatient (CLI) | payer OTHER, MEDICAID ==
[~2019-06-21] MED LIST changes: +BUPIVACAINE HCL 0.25% 30 ML VIAL As Ordered ONE; +ISOVUE-M 300 61% 15ML VIAL (Q9967) As Ordered ONE; +LIDO5DIS41 TOP; +LIDOCAINE 1% SDV INJ 30 ML VIAL As Ordered ONE; +NORC1TAB7 PO
--- NOTE | 2019-06-21 13:54 | REP ---
Partial lumbar spine series: Two views . History: Injection procedure for pain. 47 seconds of fluoroscopy time is reported. Findings: A sequence of two fluoroscopically obtained last image hold procedural spot radiographs of the lumbar spine document needle position and contrast injection associated with injection procedure. Electronically Signed by Kennedy Winslow MD 06/21/2019 01:46 P
--- NOTE | 2019-07-02 06:28 | ECWPNPC ---
PATIENT NAME: HANNA GARVIN : 1955 GENDER: FEMALE VISIT DATE: 06/21/2019 DISCHARGE DATE: 06/21/19 1324 VISIT LOCKED DATE TIME: PHYSICIAN: RADHA VALENZUELA MD RESOURCE: RADHA VALENZUELA MD REASON FOR APPOINTMENT 1. W/C BILAT DIAG FACET BLK #1 L4-L5 HISTORY OF PRESENT ILLNESS HISTORY OF PRESENT ILLNESS: PAIN THE PATIENT DESCRIBES THE PAIN... FALL RISK SCREENING: SCREENING :NO FALLS REPORTED IN THE LAST YEAR CURRENT MEDICATIONS TAKING ATENOLOL 25 MG TABLET 1 TABLET ORALLY TWICE A DAY, NOTES: 06/20/19@1900 TAKING CYMBALTA 60 MG CAPSULE DELAYED RELEASE PARTICLES TAKE ONE CAPSULE BY MOUTH ORALLY BID, NOTES: 06/20/19@1899 TAKING LISINOPRIL 40 MG TABLET 1 TABLET ORALLY ONCE A DAY, NOTES: 06/20/19@2099 TAKING GLUCOMETER DIRECTED TAKING BLOOD GLUCOSE TEST - STRIP DIRECTED IN VITRO DAILY TAKING LANCETS - MISCELLANEOUS DIRECTED DAILY TAKING METFORMIN HCL 500 MG TABLET 1 TABLET WITH A MEAL ORALLY TWICE DAILY, NOTES: 06/20/19@2099 TAKING OXYCODONE-ACETAMINOPHEN 7.5-325 MG TABLET 1 TABLET NEEDED ORALLY FOR PAIN EVERY 8 HRS MDD3, NOTES: 0600 TAKING GABAPENTIN 600 MG TABLET 1 CAP ORALLY TID, NOTES: 06/20/19@2099 TAKING TIZANIDINE HCL 4 MG TABLET 1 TABLET NEEDED ORALLY BEFORE BEDTIME MAY REPEAT IN 5 HRS MDD2, NOTES: 06/20/19@1900 TAKING FLEXERIL 10 MG TABLET 1 TABLET ORALLY THREE TIMES A DAY, NOTES: 06/20/19@1900 TAKING OXYCODONE HCL 5 MG TABLET 1 TABLET NEEDED ORALLY FOR PAIN EVERY 8 HRS MDD3, NOTES: 0600 DISCONTINUED LASIX 40 MG TABLET 1 TABLET ORALLY ONCE A DAY DISCONTINUED HYDROCHLOROTHIAZIDE 50 MG TABLET 1 TABLET ORALLY ONCE A DAY DISCONTINUED IRON 325 (65 FE) MG TABLET 1 TABLET ORALLY ONCE A DAY DISCONTINUED HYDROCODONE-ACETAMINOPHEN 10-325 MG TABLET 1 TABLET NEEDED ORALLY FOR PAIN EVERY 8 HRS MDD3 DISCONTINUED ATENOLOL 100 MG TABLET TAKE ONE TABLET BY MOUTH TWICE A DAY , NOTES: DUPLICATE DISCONTINUED TOPAMAX 200 MG TABLET 1 TABLET ORALLY BEFORE BEDTIME DISCONTINUED PREMPRO 0.625-5 MG TABLET 1 TABLET ORALLY ONCE A DAY DISCONTINUED LYRICA 200 MG CAPSULE 1 CAPSULE ORALLY TWICE A DAY DISCONTINUED ATORVASTATIN CALCIUM 40 MG TABLET 1 TABLET ORALLY ONCE A DAY DISCONTINUED MACROBID 100 MG CAPSULE 1 CAPSULE WITH FOOD ORALLY EVERY 12 HRS MEDICATION LIST REVIEWED AND RECONCILED WITH THE PATIENT PAST MEDICAL HISTORY HTN RA LOW BACK PAIN MIGRAINES EDEMA IRON DEFICIENCY ANEMIA DIABETES CHRONIC BACK PAIN ALLERGIES N.K.D.A. SURGICAL HISTORY RT ANKLE ORIF, REVISED 2011, 05/13 CHOLECYSTECTOMY 2011 FAMILY HISTORY FATHER: 59 YRS, HEART ATTACK, DIAGNOSED WITH UNSPECIFIED HEART DISEASE MOTHER: 58 YRS, CANCER METS UNKNOWN ORIGIN, OTHER MALIGNANT NEOPLASM OF UNSPECIFIED SITE SIBLINGS: ALIVE, 3 BROTHERS , DIABETES, HYPERTENSION SON(S): ALIVE DAUGHTER(S): ALIVE 10 BROTHER(S) , 2 SISTER(S) . 1 SON(S) , 1 DAUGHTER(S) - HEALTHY. NEGATIVE FOR ANY UROLOGIC DISEASE. SOCIAL HISTORY GENERAL: TOBACCO USE ARE YOU A:NONSMOKER HIV / HEP-C SCREENING HIV TEST OFFERED TO PATIENT:YES DATE OFFERED:05/06/2018 TEST ACCEPTED:NO HEP-C TEST OFFERED TO PATIENT:YES DATE OFFERED:05/06/2018 REASON:PATIENT DECLINED TEST ACCEPTED:NO REASON:PATIENT DECLINED BROCHURE PROVIDED TO PATIENTNO OTHERS AT HOME: OTHER NON-RELATIVE. DIET: REGULAR. LANGUAGE ALBANIAN. DOMESTIC VIOLENCE NONE. BMI CARE GOAL FOLLOW-UP ABOVE NORMAL BMI FOLLOW-UPDIETARY MANAGEMENT EDUCATION, GUIDANCE, AND COUNSELING RECREATIONAL DRUG USE DENIES. EXERCISE: NONE. LEARNING BARRIERS / SPECIAL NEEDS CHANGE FROM LAST VISIT?NO BARRIERS TO LEARNING?NO HEARING IMPAIRED?NO VISION IMPAIRED?NO COGNITIVELY IMPAIRED?NO READINESS TO LEARN?YES LEARNING PREFERENCES?NO LEARNING CAPABILITIES PRESENT?YES EMOTIONAL BARRIERS?NO SPECIAL DEVICES?NO REPORTING ANALYST NEEDED?NO PAIN CLINIC PFS, CLERGY, PUBLIC HEALTH REFERRALS WAS THE PROVIDER NOTIFIED OF ANY PERTINENT INFO?YES HAS THE PATIENT BEEN EDUCATED REGARDING HIS/HER PLAN OF CARE?YES HAS THE PATIENT BEEN EDUCATED REGARDING PAIN, THE RISK FOR PAIN, THE IMPORTANCE OF EFFECTIVE PAIN MANAGEMENT, AND THE PAIN ASSESSMENT PROCESS?YES LATEX QUESTIONNAIRE LATEX ALLERGY : HAVE YOU EVER DEVELOPED ANY TYPE OF REACTION AFTER HANDLING LATEX PRODUCTS SUCH RUBBER GLOVES, CONDOMS, DIAPHRAGMS, BALLOONS, SOCKS, OR UNDERWEAR?NO LATEX ALLERGY : HAVE YOU EVER DEVELOPED ANY TYPE OF REACTION DURING OR AFTER DENTAL APPOINTMENT, VAGINAL/RECTAL EXAMINATION, SURGICAL PROCEDURE, OR ANY OTHER EXPOSURE?NO LATEX RISK : HAVE YOU EVER HAD ANY DIFFICULTY BREATHING OR HIVES AFTER EATING OR HANDLING ANY FRUITS, OR VEGETABLES; SUCH KIWI, BANANAS, STONE FRUITS, OR CHESTNUTSNO LATEX RISK : DO YOU HAVE A PREVIOUS PERSONAL HISTORY OF MORE THAN NINE SURGERIES, SPINA BIFIDA, OR REPEATED CATHERIZATIONS? NO LATEX RISK : ARE YOU FREQUENTLY EXPOSED TO LATEX PRODUCTS IN YOUR OCCUPATION?NO DATE ASKED : 06/21/2019 CAFFEINE CAFFEINE USE?YES HOW OFTEN AND HOW MUCH? 1 COFFEE DAILY, OCCASIONAL SODA ADVANCE DIRECTIVE ADVANCE DIRECTIVE DISCUSSED WITH PATIENT:YES PATIENT DECLINES HCP INFORMATION AT THIS TIME. DECLINES ASSISTANCE WITH FORM. VOODOO NO DRUZE BELIEFS THAT WOULD IMPACT HEALTH CARE. MARITAL STATUS: SINGLE. ALCOHOL SCREENING DID YOU HAVE A DRINK CONTAINING ALCOHOL IN THE PAST YEAR?NO POINTS0 INTERPRETATIONNEGATIVE OCCUPATION: DISABLED. SEXUAL HX HAD SEX IN THE LAST 12 MONTHS (VAGINAL, ORAL, OR ANAL)?: YES, WITH: MEN ONLY, USE PROTECTION?: NO, HAVE YOU EVER HAD AN STD?: NO. REVIEWED WITH PT 05/14/18 1149 BVREVIEWED WITH PATIENT 05/17/18 1617 JSREVIEWED WITH PT 06/07/18 1453 BVREVIEWED WITH PT 08/13/28 0930 LASREVIEWED WITH PT 10/05/18 1337 LASREVIEWED WITH PATIENT 10/15/18 0954 JS REVIEWED WITH PATIENT 04/25/19 1023 JSREVIEWED WITH PATIENT 05-12-19 DS. HOSPITALIZATION/MAJOR DIAGNOSTIC PROCEDURE SURGERY RELATED REVIEW OF SYSTEMS REVIEWED BY: PROVIDER: . CONSTITUTIONAL: ANY CHANGE IN YOUR MEDICAL CONDITION? NO . CHILLS NO . FEVER NO . INFECTION: DO YOU HAVE NEW INFECTIONS? NO . DO YOU HAVE HISTORY OF MRSA? NO . MUSCULOSKELETAL: ANY NEW PATTERNS OF PAIN OR NUMBNESS? YES . GASTROENTEROLOGY: ANY NEW CHANGE IN BOWEL CONTROL? NO . GENITOURINARY: ANY NEW CHANGE IN BLADDER CONTROL? NO . IS THERE A CHANCE YOU COULD BE ? NO . HEMATOLOGY/LYMPH: DO YOU TAKE ANY BLOOD THINNERS? (FOR EXAMPLE- COUMADIN, PLAVIX, AGGRENOX, PLATEL, PRADAXA, OR XARELTO) NO . WHEN WAS YOUR LAST DOSE? DATE: TIME: . NEUROLOGY: HAVE YOU FALLEN IN THE PAST 12 MONTHS? NO . ANY NEW EXTREMITY NUMBNESS OR WEAKNESS? YES . CARDIOLOGY: DO YOU HAVE A PACEMAKER OR DEFIBRILLATOR? NO . RESPIRATORY: HAVE YOU BEEN SICK IN THE PAST WEEK? NO . FEVER NO . FLU LIKE SYMPTOMS? NO . COUGH NO . INTEGUMENTARY: DO YOU HAVE ANY RASHES OR OPEN SORES? NO . ALLERGIC/IMMUNO: ARE YOU ALLERGIC TO IV DYE? NO . ANY NEW ALLERGIES? NO . PSYCHIATRIC: DO YOU HAVE THOUGHTS OF HURTING YOURSELF OR SOMEONE ELSE? NO . ARE YOU ABUSED, NEGLECTED, OR IN AN UNSAFE ENVIRONMENT? NO . ENDOCRINOLOGY: ARE YOU DIABETIC? YES . OTHER: DO YOU NEED ANY PRESCRIPTIONS? NO . IF YES, PLEASE LIST: ____ . ANY NEW PROBLEMS WITH YOUR MEDICATIONS? NO . WHEN DID YOU LAST EAT? ____06/20/19 . WHEN DID YOU LAST DRINK? ___06/20/19 . WHAT DID YOU LAST DRINK?. NAME OF PERSON DRIVING YOU HOME? ____TODD MYAORGA . DO YOU HAVE ANY OTHER QUESTIONS OR CONCERNS NO . VITAL SIGNS WT 263.8 LBS, HT 67.5 IN, BMI 40.70 INDEX, BP 180/100 MM HG, REPEAT BP 187/91 MM HG, HR 96.0 /MIN, RR 18 /MIN, TEMP 96.0 F, OXYGEN SAT % 97%, NA INITIALS AW 1055. ASSESSMENTS SPONDYLOSIS WITHOUT MYELOPATHY OR RADICULOPATHY, LUMBAR REGION - M47.816 (PRIMARY) SPONDYLOSIS WITHOUT MYELOPATHY OR RADICULOPATHY, LUMBOSACRAL REGION - M47.817 PROCEDURES PN WORKMANS' COMP OPINION IN YOUR OPINION, WAS THE INCIDENT THAT THE PATIENT DESCRIBED THE COMPETENT MEDICAL CAUSE OF THIS INJURY/ILLNESS? YES ARE THE PATIENT'S COMPLAINTS CONSISTENT WITH HIS/HER HISTORY OF THE INJURY/ILLNESS? YES IS THE PATIENT'S HISTORY OF THE INJURY/ILLNESS CONSISTENT WITH YOUR OBJECTIVE FINDING? YES WHAT IS THE PERCENTAGE OF TEMPORARY IMPAIRMENT? MODERATE TO MARKED = 66.7% IS THE PATIENT WORKING? NO DOCTOR ON SITE: RADHA TAI MD PN LUMBAR FACET BLOCK DIAGNOSTIC PRE PROCEDURE DIAGNOSIS LUMBAR SPONDYLOSIS, LUMBOSACRAL SPONDYLOSIS POST PROCEDURE DIAGNOSIS LUMBAR SPONDYLOSIS, LUMBOSACRAL SPONDYLOSIS PROCEDURE BILATERAL L4-L5 AND L5-S1 FACET BLOCK DIAGNOSTIC NUMBER [address] 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 I EVALUATED THE PATIENT AND REVIEWED THE CHART. I WENT OVER THE RISKS, ALTERNATIVES, AND BENEFITS ASSOCIATED WITH THIS PROCEDURE. THE PATIENT WOULD LIKE TO PROCEED AND GAVE CONSENT TO PERFORM THE PROCEDURE. AGREED WITH THE PATIENT WE ARE DOING THIS PROCEDURE TO DETERMINE IF THE PATIENT IS A CANDIDATE FOR A RADIOFREQUENCY ABLATION OF THE FACETS JOINTS. THE PATIENT DENIES UNEXPLAINABLE WEIGHT LOSS, FEVER, CHILLS, OR NEW CHANGES IN URINARY OR BOWEL CONTROL DESCRIPTION OF PROCEDURE THE PATIENT WAS BROUGHT TO THE PROCEDURE ROOM AND PLACED IN THE PRONE POSITION. THE LUMBOSACRAL AREA WAS CLEANED WITH CHLORAPREP SOLUTION AND DRAPED ASEPTICALLY. THE PROCEDURE WAS DONE UNDER STERILE CONDITIONS. I CHECKED LATERALITY AND THE LEVEL WHERE THE PROCEDURE WAS GOING TO BE PERFORMED WITH THE PATIENT AND THE SUPPORTING STAFF AT THE MOMENT OF THE TIME OUT IN THE PROCEDURE ROOM. UNDER FLUOROSCOPIC GUIDANCE, TARGETS WERE SELECTED AT THE INTERSECTION OF THE RIGHT AND LEFT TRANSVERSE PROCESS OF L4, L5 AND ALA OF S1 WITH ITS RESPECTIVE SUPERIOR ARTICULAR PROCESS. LIDOCAINE WAS USED TO NUMB THE SKIN AND THE SUBCUTANEOUS TISSUE BELOW IT. SPINAL NEEDLE, 22-GAUGE WAS ADVANCED UNDER FLUOROSCOPIC GUIDANCE AND FOLLOWING PATIENT FEEDBACK UNTIL THE TARGETS WERE REACHED. POSITION OF THE NEEDLES WAS VERIFIED WITH AP AND LATERAL VIEWS. AFTER PROPER POSITION OF THE NEEDLES WAS ACHIEVED, ISOVUE-M DYE 30% 0.1 ML WAS INJECTED AT EACH SITE SHOWING ADEQUATE SPREAD OF THE DYE. THEN A SOLUTION OF 0.4 ML OF BUPIVACAINE 0.25% WAS INJECTED AT EACH SITE. THERE WAS NO EVIDENCE OF BLOOD, PARESTHESIA OR CEREBROSPINAL FLUID DURING THE PROCEDURE. THE PATIENT WAS SENT TO THE RECOVERY ROOM. THE PATIENT WAS MOVING THE EXTREMITIES AND DOING WELL. THERE WAS NO COMPLICATION DURING THE PROCEDURE. FLUOROSCOPY TIME WAS 47 SECONDS POST PROCEDURE NOTE THE PATIENT WILL DOCUMENT HIS PAIN LEVEL AND RESPONSE TO THIS PROCEDURE EVERY 30 MINUTES. THE PATIENT WILL BE SEEN IN A FOLLOW UP IN THE NEXT FEW WEEKS. FURTHER DETERMINATION FOR HIS CASE WILL BE DONE AT THE NEXT VISIT. INSTRUCTIONS WERE GIVEN, QUESTIONS WERE ANSWERED, AND THE PATIENT EXPRESSED UNDERSTANDING AND AGREED WITH THE PLAN. I, ANNABEL WOODY, DOCUMENTED THE ABOVE INFORMATION ACTING A SCRIBE FOR DR. VALENZUELA. I HAVE REVIEWED THE ABOVE DOCUMENT, WRITTEN BY ANNABEL WOODY SCRIBEliazar AND I VERIFY THAT IT IS ACCURATE. DIAGNOSTIC IMAGING [facility] FACET BLOCK (PAIN)[id number] PROCEDURE CODES 05052 INJ PARAVERT F JNT L/S 1 LEV, MODIFIERS: 50 [id number] INJ PARAVERT F JNT L/S 2 LEV, MODIFIERS: 50 [id number] RADXPS IN END [id number] PXD DISPOSITION & COMMUNICATION FOLLOW UP 3 WEEKS ELECTRONICALLY SIGNED BY RADHA VALENZUELA MD, MD ON 07/01/2019 AT 05:34 PM EST DISCLAIMER : THIS IS A VISIT SUMMARY EXTRACTED FROM THE [employer] CHART. IT IS NOT A COPY OF THE [employer] PROGRESS NOTE. MTDD
== END ==
LOC: M PAIN 11:00
PROVIDERS: ATTEND Anesthesiology
DX: M47.816 Spondylosis without myelopathy or radiculopathy, lumbar region (principal); M47.817 Spondylosis without myelopathy or radiculopathy, lumbosacral region; I10 Essential (primary) hypertension; G43.909 Migraine, unspecified, not intractable, without status migrainosus; E11.9 Type 2 diabetes mellitus without complications; E66.01 Morbid (severe) obesity due to excess calories; Z68.41 Body mass index [BMI] 40.0-44.9, adult; Z79.84 Long term (current) use of oral hypoglycemic drugs; Z79.899 Other long term (current) drug therapy
CPT/HCPCS: 64493; 64494; Q9967

== ENCOUNTER → 2019-07-07 | Outpatient (CLI) | payer OTHER, MEDICAID ==
[~2019-07-07] MED LIST changes: -BUPIVACAINE HCL 0.25% 30 ML VIAL As Ordered ONE; -ISOVUE-M 300 61% 15ML VIAL (Q9967) As Ordered ONE; -LIDOCAINE 1% SDV INJ 30 ML VIAL As Ordered ONE
--- NOTE | 2019-07-09 06:22 | ECWPNPC ---
PATIENT NAME: HANNA GARVIN : 1955 GENDER: FEMALE VISIT DATE: 07/07/2019 DISCHARGE DATE: 07/07/19 1032 VISIT LOCKED DATE TIME: PHYSICIAN: BRIDGETTE CALDWELL RESOURCE: BRIDGETTE CALDWELL REASON FOR APPOINTMENT 1. W/C POST PROC HISTORY OF PRESENT ILLNESS HISTORY OF PRESENT ILLNESS: PAIN THE PATIENT DESCRIBES THE PAIN... 63-YEAR-OLD FEMALE IN FOR POST DIAGNOSTIC FACET BLOCK FOLLOW-UP. PATIENT FEELS THE PROCEDURE WORKED WELL AND REPORTS GREATER THAN 50% PAIN RELIEF TIMES ONE DAY. SHE RATES HER PAIN CURRENTLY AT A 9-10 OUT OF 10 AND DESCRIBES IT ACHING, SHARP, BURNING, AND STABBING. 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 FALL RISK SCREENING: SCREENING :NO FALLS REPORTED IN THE LAST YEAR CURRENT MEDICATIONS TAKING ATENOLOL 25 MG TABLET 1 TABLET ORALLY TWICE A DAY TAKING CYMBALTA 60 MG CAPSULE DELAYED RELEASE PARTICLES TAKE ONE CAPSULE BY MOUTH ORALLY BID TAKING LISINOPRIL 40 MG TABLET 1 TABLET ORALLY ONCE A DAY TAKING GLUCOMETER DIRECTED TAKING BLOOD GLUCOSE TEST - STRIP DIRECTED IN VITRO DAILY TAKING LANCETS - MISCELLANEOUS DIRECTED DAILY TAKING METFORMIN HCL 500 MG TABLET 1 TABLET WITH A MEAL ORALLY TWICE DAILY TAKING FLEXERIL 10 MG TABLET 1 TABLET ORALLY THREE TIMES A DAY TAKING OXYCODONE HCL 5 MG TABLET 1 TABLET NEEDED ORALLY FOR PAIN EVERY 8 HRS MDD3 TAKING OXYCODONE-ACETAMINOPHEN 7.5-325 MG TABLET 1 TABLET NEEDED ORALLY FOR PAIN EVERY 8 HRS MDD3 TAKING GABAPENTIN 600 MG TABLET 1 CAP ORALLY TID TAKING TIZANIDINE HCL 4 MG TABLET 1 TABLET NEEDED ORALLY BEFORE BEDTIME MAY REPEAT IN 5 HRS MDD2 MEDICATION LIST REVIEWED AND RECONCILED WITH THE PATIENT PAST MEDICAL HISTORY HTN RA LOW BACK PAIN MIGRAINES EDEMA IRON DEFICIENCY ANEMIA DIABETES CHRONIC BACK PAIN ALLERGIES N.K.D.A. SURGICAL HISTORY RT ANKLE ORIF, REVISED 2011, 05/13 CHOLECYSTECTOMY 2011 FAMILY HISTORY FATHER: 59 YRS, HEART ATTACK, DIAGNOSED WITH UNSPECIFIED HEART DISEASE MOTHER: 58 YRS, CANCER METS UNKNOWN ORIGIN, OTHER MALIGNANT NEOPLASM OF UNSPECIFIED SITE SIBLINGS: ALIVE, 3 BROTHERS , DIABETES, HYPERTENSION SON(S): ALIVE DAUGHTER(S): ALIVE 10 BROTHER(S) , 2 SISTER(S) . 1 SON(S) , 1 DAUGHTER(S) - HEALTHY. NEGATIVE FOR ANY UROLOGIC DISEASE. SOCIAL HISTORY GENERAL: TOBACCO USE ARE YOU A:NONSMOKER HIV / HEP-C SCREENING HIV TEST OFFERED TO PATIENT:YES DATE OFFERED:05/06/2018 TEST ACCEPTED:NO HEP-C TEST OFFERED TO PATIENT:YES DATE OFFERED:05/06/2018 REASON:PATIENT DECLINED TEST ACCEPTED:NO REASON:PATIENT DECLINED BROCHURE PROVIDED TO PATIENTNO OTHERS AT HOME: OTHER NON-RELATIVE. DIET: REGULAR. LANGUAGE AMHARIC. DOMESTIC VIOLENCE NONE. BMI CARE GOAL FOLLOW-UP ABOVE NORMAL BMI FOLLOW-UPDIETARY MANAGEMENT EDUCATION, GUIDANCE, AND COUNSELING RECREATIONAL DRUG USE DENIES. EXERCISE: NONE. LEARNING BARRIERS / SPECIAL NEEDS CHANGE FROM LAST VISIT?NO BARRIERS TO LEARNING?NO HEARING IMPAIRED?NO VISION IMPAIRED?NO COGNITIVELY IMPAIRED?NO READINESS TO LEARN?YES LEARNING PREFERENCES?NO LEARNING CAPABILITIES PRESENT?YES EMOTIONAL BARRIERS?NO SPECIAL DEVICES?NO METAL MODEL BUILDER NEEDED?NO PAIN CLINIC PFS, CLERGY, PUBLIC HEALTH REFERRALS WAS THE PROVIDER NOTIFIED OF ANY PERTINENT INFO?YES HAS THE PATIENT BEEN EDUCATED REGARDING HIS/HER PLAN OF CARE?YES HAS THE PATIENT BEEN EDUCATED REGARDING PAIN, THE RISK FOR PAIN, THE IMPORTANCE OF EFFECTIVE PAIN MANAGEMENT, AND THE PAIN ASSESSMENT PROCESS?YES LATEX QUESTIONNAIRE LATEX ALLERGY : HAVE YOU EVER DEVELOPED ANY TYPE OF REACTION AFTER HANDLING LATEX PRODUCTS SUCH RUBBER GLOVES, CONDOMS, DIAPHRAGMS, BALLOONS, SOCKS, OR UNDERWEAR?NO LATEX ALLERGY : HAVE YOU EVER DEVELOPED ANY TYPE OF REACTION DURING OR AFTER DENTAL APPOINTMENT, VAGINAL/RECTAL EXAMINATION, SURGICAL PROCEDURE, OR ANY OTHER EXPOSURE?NO DATE ASKED : 06/21/2019 LATEX RISK : HAVE YOU EVER HAD ANY DIFFICULTY BREATHING OR HIVES AFTER EATING OR HANDLING ANY FRUITS, OR VEGETABLES; SUCH KIWI, BANANAS, STONE FRUITS, OR CHESTNUTSNO LATEX RISK : DO YOU HAVE A PREVIOUS PERSONAL HISTORY OF MORE THAN NINE SURGERIES, SPINA BIFIDA, OR REPEATED CATHERIZATIONS? NO LATEX RISK : ARE YOU FREQUENTLY EXPOSED TO LATEX PRODUCTS IN YOUR OCCUPATION?NO CAFFEINE CAFFEINE USE?YES HOW OFTEN AND HOW MUCH? 1 COFFEE DAILY, OCCASIONAL SODA ADVANCE DIRECTIVE ADVANCE DIRECTIVE DISCUSSED WITH PATIENT:YES PATIENT DECLINES HCP INFORMATION AT THIS TIME. DECLINES ASSISTANCE WITH FORM. HINDUISM NO MUSLIM BELIEFS THAT WOULD IMPACT HEALTH CARE. MARITAL STATUS: SINGLE. ALCOHOL SCREENING DID YOU HAVE A DRINK CONTAINING ALCOHOL IN THE PAST YEAR?NO POINTS0 INTERPRETATIONNEGATIVE OCCUPATION: DISABLED. SEXUAL HX HAD SEX IN THE LAST 12 MONTHS (VAGINAL, ORAL, OR ANAL)?: YES, WITH: MEN ONLY, USE PROTECTION?: NO, HAVE YOU EVER HAD AN STD?: NO. REVIEWED WITH PT 05/14/18 1149 BVREVIEWED WITH PATIENT 05/17/18 1617 JSREVIEWED WITH PT 06/07/18 1453 BVREVIEWED WITH PT 08/13/28 0930 LASREVIEWED WITH PT 10/05/18 1337 LASREVIEWED WITH PATIENT 10/15/18 0954 JS REVIEWED WITH PATIENT 04/25/19 1023 JSREVIEWED WITH PATIENT 05-12-19 DS. HOSPITALIZATION/MAJOR DIAGNOSTIC PROCEDURE SURGERY RELATED REVIEW OF SYSTEMS REVIEWED BY: PROVIDER: SARAHI CALDWELL GAME FARM SUPERVISOR-C . CONSTITUTIONAL: ANY CHANGE IN YOUR MEDICAL CONDITION? NO . CHILLS NO . FEVER NO . INFECTION: DO YOU HAVE NEW INFECTIONS? NO . DO YOU HAVE HISTORY OF MRSA? NO . MUSCULOSKELETAL: ANY NEW PATTERNS OF PAIN OR NUMBNESS? NO . GASTROENTEROLOGY: ANY NEW CHANGE IN BOWEL CONTROL? NO . GENITOURINARY: ANY NEW CHANGE IN BLADDER CONTROL? NO . IS THERE A CHANCE YOU COULD BE ? NO . HEMATOLOGY/LYMPH: DO YOU TAKE ANY BLOOD THINNERS? (FOR EXAMPLE- COUMADIN, PLAVIX, AGGRENOX, PLATEL, PRADAXA, OR XARELTO) NO . WHEN WAS YOUR LAST DOSE? DATE: TIME: . NEUROLOGY: HAVE YOU FALLEN IN THE PAST 12 MONTHS? NO . ANY NEW EXTREMITY NUMBNESS OR WEAKNESS? NO . CARDIOLOGY: DO YOU HAVE A PACEMAKER OR DEFIBRILLATOR? NO . RESPIRATORY: HAVE YOU BEEN SICK IN THE PAST WEEK? NO . FEVER NO . FLU LIKE SYMPTOMS? NO . COUGH NO . INTEGUMENTARY: DO YOU HAVE ANY RASHES OR OPEN SORES? NO . ALLERGIC/IMMUNO: ARE YOU ALLERGIC TO IV DYE? NO . ANY NEW ALLERGIES? NO . PSYCHIATRIC: DO YOU HAVE THOUGHTS OF HURTING YOURSELF OR SOMEONE ELSE? NO . ARE YOU ABUSED, NEGLECTED, OR IN AN UNSAFE ENVIRONMENT? NO . ENDOCRINOLOGY: ARE YOU DIABETIC? YES . OTHER: DO YOU NEED ANY PRESCRIPTIONS? NO . IF YES, PLEASE LIST: ____ . ANY NEW PROBLEMS WITH YOUR MEDICATIONS? NO . WHEN DID YOU LAST EAT? ____ . WHEN DID YOU LAST DRINK? ____ . WHAT DID YOU LAST DRINK? ____ . NAME OF PERSON DRIVING YOU HOME? ____ . DO YOU HAVE ANY OTHER QUESTIONS OR CONCERNS NO . VITAL SIGNS WT 264.2 LBS, HT 67.5 IN, BMI 40.76 INDEX, BP 191/94 MM HG, HR 72 /MIN, RR 18 /MIN, TEMP 98.1 F, OXYGEN SAT % 97%, NA INITIALS AW 1006, REVIEWED BY: EM. EXAMINATION GENERAL EXAMINATION: GENERALNO ACUTE DISTRESS, WELL NOURISHED AND HYDRATED. PSYCHAPPROPRIATE MOOD AND AFFECT . LUNGS:CLEAR TO AUSCULTATION BILATERALLY, NO WHEEZES, RHONCHI, RALES. HEART:NO MURMURS, REGULAR RATE AND RHYTHM. BACK: POINT TENDER ALONG LUMBAR SPINE LEFT SIDE, SURROUNDING SKIN SHOWS NO ERYTHEMA, ECCHYMOSIS, INCREASED WARMTH, AND/OR SKIN ERUPTIONS NOTED.. ASSESSMENTS SPONDYLOSIS WITHOUT MYELOPATHY OR RADICULOPATHY, LUMBAR REGION - M47.816 (PRIMARY) TREATMENT SPONDYLOSIS WITHOUT MYELOPATHY OR RADICULOPATHY, LUMBAR REGION NOTES: DIAGNOSTIC LUMBAR FACET BLOCK #2 LEFT SIDE L4-L5, L5-S1. CLINICAL NOTES: 63 YEAR OLD FEMALE IN FOR POST DLFB. GIVEN PRESENTING SYMPTOMS AND RESULTS OF PHYSICAL EXAMINATION RECOMMENDED DIAGNOSTIC FACET BLOCK #2 WITH POSTPROCEDURAL FOLLOW-UP. PATIENT HAS EXPRESSED UNDERSTANDING OF AND WAS IN AGREEMENT WITH TREATMENT PLAN. GIVEN TIME TO ASK QUESTIONS AND EXPRESS CONCERNS., ISTOP REGISTRY REVIEWED AND DEMONSTRATES COMPLLIANCE. (REF # [id number] ) BRINGS IN MEDICATIONS WHICH IS APPROPRIATE FOR WHAT WAS DISPENSED. RECENT URINE TOXICOLOGY REVIEWED. NO UNAUTHORIZED MEDICATIONS. NO ILLICIT SUBSTANCES AND PRESCRIBED MEDICATIONS WERE PRESENT. PROCEDURES PN WORKMANS' COMP OPINION IN YOUR OPINION, WAS THE INCIDENT THAT THE PATIENT DESCRIBED THE COMPETENT MEDICAL CAUSE OF THIS INJURY/ILLNESS? YES ARE THE PATIENT'S COMPLAINTS CONSISTENT WITH HIS/HER HISTORY OF THE INJURY/ILLNESS? YES IS THE PATIENT'S HISTORY OF THE INJURY/ILLNESS CONSISTENT WITH YOUR OBJECTIVE FINDING? YES WHAT IS THE PERCENTAGE OF TEMPORARY IMPAIRMENT? MODERATE TO MARKED = 66.7% IS THE PATIENT WORKING? NO DOCTOR ON SITE: RADHA TAI MD PROCEDURE CODES FA211 ESTABILISHED PATIENT [facility] FAC[facility] CHARGE DISPOSITION & COMMUNICATION FOLLOW UP POST PROCEDURE (REASON: DIAGNOSTIC LUMBAR FACET BLOCK #2 LEFT SIDE L4-L5, L5-S1) ELECTRONICALLY SIGNED BY MELY CUELLO ON 07/08/2019 AT 10:18 AM EST DISCLAIMER : THIS IS A VISIT SUMMARY EXTRACTED FROM THE [employer] CHART. IT IS NOT A COPY OF THE [employer] PROGRESS NOTE. MICHAEL
== END ==
LOC: M PAIN 10:00
PROVIDERS: ATTEND Family Medicine
DX: M47.816 Spondylosis without myelopathy or radiculopathy, lumbar region (principal)

== ENCOUNTER → 2019-08-09 | Outpatient (REF) | payer OTHER ==
[2019-08-09 13:42] LABS: APPEARANCE, URINE HAZY (CLEAR); BACTERIA, URINE AUTO NEGATIVE (NEGATIVE); BILIRUBIN, URINE AUTO NEGATIVE (NEGATIVE); BLOOD, URINE BLOOD NEGATIVE (NEGATIVE); COLOR, URINE YELLOW (YELLOW); GLUCOSE, URINE (UA) AUTO NEGATIVE (NEGATIVE); KETONE, URINE AUTO NEGATIVE (NEGATIVE); LEUKOCYTE ESTERASE, URINE AUTO TRACE (NEGATIVE); MUCUS, URINE SMALL (NEGATIVE); NITRITE, URINE AUTO NEGATIVE (NEGATIVE); PROTEIN, URINE AUTO NEGATIVE (NEGATIVE); RBC, URINE AUTO 1 /HPF (0-3); SPECIFIC GRAVITY URINE AUTO 1.021 (1.002-1.035); SQUAMOUS EPITHELIAL CELL UR AU 0 /HPF (0-6); UROBILINOGEN, URINE AUTO 0.2 mg/dL (0.0-2.0); WBC, URINE AUTO 6 /HPF (0-3)
== END ==
LOC: M LAB REF 12:10
PROVIDERS: ATTEND Physician Assistant Medical
DX: N39.0 Urinary tract infection, site not specified (principal)

== ENCOUNTER → 2019-08-16 | Outpatient (CLI) | payer OTHER, MEDICAID ==
[~2019-08-16] MED LIST changes: +BUPIVACAINE HCL 0.25% 30 ML VIAL As Ordered ONE; +ISOVUE-M 300 61% 15ML VIAL (Q9967) As Ordered ONE; +LIDOCAINE 1% SDV INJ 30 ML VIAL As Ordered ONE
--- NOTE | 2019-08-16 16:29 | REP ---
Partial lumbar spine series: Two views . History: Injection procedure for pain. 14 seconds of fluoroscopy time is reported. Findings: A sequence of two fluoroscopically obtained last image hold procedural spot radiographs of the lumbar spine document needle position and contrast injection associated with injection procedure. Electronically Signed by Kennedy Winslow MD 08/16/2019 04:21 P
--- NOTE | 2019-08-26 03:03 | ECWPNPC ---
PATIENT NAME: HANNA GARVIN : 1955 GENDER: FEMALE VISIT DATE: 08/16/2019 DISCHARGE DATE: 08/16/19 1401 VISIT LOCKED DATE TIME: PHYSICIAN: RADHA VALENZUELA MD RESOURCE: RADHA VALENZUELA MD REASON FOR APPOINTMENT 1. W/C DIAGNOSTIC LUMBAR FACET BLOCK #2 LEFT SIDE L4-L5, L5-S1 HISTORY OF PRESENT ILLNESS HISTORY OF PRESENT ILLNESS: PAIN THE PATIENT DESCRIBES THE PAIN... FALL RISK SCREENING: SCREENING :NO FALLS REPORTED IN THE LAST YEAR CURRENT MEDICATIONS TAKING ATENOLOL 25 MG TABLET 1 TABLET ORALLY TWICE A DAY, NOTES: 08/14 2229 TAKING CYMBALTA 60 MG CAPSULE DELAYED RELEASE PARTICLES TAKE ONE CAPSULE BY MOUTH ORALLY BID, NOTES: 1 WEEK AGO TAKING LISINOPRIL 40 MG TABLET 1 TABLET ORALLY ONCE A DAY, NOTES: 08/16 799 TAKING GLUCOMETER DIRECTED TAKING BLOOD GLUCOSE TEST - STRIP DIRECTED IN VITRO DAILY TAKING LANCETS - MISCELLANEOUS DIRECTED DAILY TAKING METFORMIN HCL 500 MG TABLET 1 TABLET WITH A MEAL ORALLY TWICE DAILY, NOTES: 08/14 829 TAKING FLEXERIL 10 MG TABLET 1 TABLET ORALLY THREE TIMES A DAY, NOTES: 08/14 2029 TAKING GABAPENTIN 600 MG TABLET 1 CAP ORALLY TID, NOTES: 08/14 2229 TAKING TIZANIDINE HCL 4 MG TABLET 1 TABLET NEEDED ORALLY BEFORE BEDTIME MAY REPEAT IN 5 HRS MDD2, NOTES: 08/13 TAKING OXYCODONE-ACETAMINOPHEN 7.5-325 MG TABLET 1 TABLET NEEDED ORALLY FOR PAIN EVERY 8 HRS MDD3, NOTES: 08/14 2029 NOT-TAKING OXYCODONE HCL 5 MG TABLET 1 TABLET NEEDED ORALLY FOR PAIN EVERY 8 HRS MDD3 MEDICATION LIST REVIEWED AND RECONCILED WITH THE PATIENT PAST MEDICAL HISTORY HTN RA LOW BACK PAIN MIGRAINES EDEMA IRON DEFICIENCY ANEMIA DIABETES CHRONIC BACK PAIN MYALGIA ALLERGIES N.K.D.A. SURGICAL HISTORY RT ANKLE ORIF, REVISED 2011, 05/13 CHOLECYSTECTOMY 2011 FAMILY HISTORY FATHER: 59 YRS, HEART ATTACK, DIAGNOSED WITH UNSPECIFIED HEART DISEASE MOTHER: 58 YRS, CANCER METS UNKNOWN ORIGIN, OTHER MALIGNANT NEOPLASM OF UNSPECIFIED SITE SIBLINGS: ALIVE, 3 BROTHERS , DIABETES, HYPERTENSION SON(S): ALIVE DAUGHTER(S): ALIVE 10 BROTHER(S) , 2 SISTER(S) . 1 SON(S) , 1 DAUGHTER(S) - HEALTHY. NEGATIVE FOR ANY UROLOGIC DISEASE. SOCIAL HISTORY GENERAL: TOBACCO USE ARE YOU A:NONSMOKER HIV / HEP-C SCREENING HIV TEST OFFERED TO PATIENT:YES DATE OFFERED:05/06/2018 TEST ACCEPTED:NO HEP-C TEST OFFERED TO PATIENT:YES DATE OFFERED:05/06/2018 REASON:PATIENT DECLINED TEST ACCEPTED:NO REASON:PATIENT DECLINED BROCHURE PROVIDED TO PATIENTNO OTHERS AT HOME: OTHER NON-RELATIVE. DIET: REGULAR. LANGUAGE PASHTO. DOMESTIC VIOLENCE DO YOU FEEL SAFE IN YOUR ENVIRONMENT?YES BMI CARE GOAL FOLLOW-UP ABOVE NORMAL BMI FOLLOW-UPDIETARY MANAGEMENT EDUCATION, GUIDANCE, AND COUNSELING RECREATIONAL DRUG USE DENIES. EXERCISE: NONE. 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 NEEDED?NO PAIN CLINIC PFS, CLERGY, PUBLIC HEALTH REFERRALS HAS THE PATIENT BEEN EDUCATED REGARDING HIS/HER PLAN OF CARE?YES HAS THE PATIENT BEEN EDUCATED REGARDING PAIN, THE RISK FOR PAIN, THE IMPORTANCE OF EFFECTIVE PAIN MANAGEMENT, AND THE PAIN ASSESSMENT PROCESS?YES LATEX QUESTIONNAIRE LATEX ALLERGY : HAVE YOU EVER DEVELOPED ANY TYPE OF REACTION AFTER HANDLING LATEX PRODUCTS SUCH RUBBER GLOVES, CONDOMS, DIAPHRAGMS, BALLOONS, SOCKS, OR UNDERWEAR?NO LATEX ALLERGY : HAVE YOU EVER DEVELOPED ANY TYPE OF REACTION DURING OR AFTER DENTAL APPOINTMENT, VAGINAL/RECTAL EXAMINATION, SURGICAL PROCEDURE, OR ANY OTHER EXPOSURE?NO LATEX RISK : HAVE YOU EVER HAD ANY DIFFICULTY BREATHING OR HIVES AFTER EATING OR HANDLING ANY FRUITS, OR VEGETABLES; SUCH KIWI, BANANAS, STONE FRUITS, OR CHESTNUTSNO LATEX RISK : DO YOU HAVE A PREVIOUS PERSONAL HISTORY OF MORE THAN NINE SURGERIES, SPINA BIFIDA, OR REPEATED CATHERIZATIONS? NO LATEX RISK : ARE YOU FREQUENTLY EXPOSED TO LATEX PRODUCTS IN YOUR OCCUPATION?NO DATE ASKED : 08/16/2019 CAFFEINE CAFFEINE USE?YES HOW OFTEN AND HOW MUCH? 1 COFFEE DAILY, OCCASIONAL SODA ADVANCE DIRECTIVE ADVANCE DIRECTIVE DISCUSSED WITH PATIENT:YES 08/16/2019 PT. DOES NOT HAVE ANY ADVANCED DIRECTIVES AND SHE DECLINES INFORMATION ON HCP AT THIS TIME. AD TAOISM NO ADVENT BELIEFS THAT WOULD IMPACT HEALTH CARE. MARITAL STATUS: SINGLE. ALCOHOL SCREENING DID YOU HAVE A DRINK CONTAINING ALCOHOL IN THE PAST YEAR?NO POINTS0 INTERPRETATIONNEGATIVE OCCUPATION: DISABLED. SEXUAL HX HAD SEX IN THE LAST 12 MONTHS (VAGINAL, ORAL, OR ANAL)?: YES, WITH: MEN ONLY, USE PROTECTION?: NO, HAVE YOU EVER HAD AN STD?: NO. REVIEWED WITH PT 05/14/18 1149 BVREVIEWED WITH PATIENT 05/17/18 1617 JSREVIEWED WITH PT 06/07/18 1453 BVREVIEWED WITH PT 08/13/28 0930 LASREVIEWED WITH PT 10/05/18 1337 LASREVIEWED WITH PATIENT 10/15/18 0954 JS REVIEWED WITH PATIENT 04/25/19 1023 JSREVIEWED WITH PATIENT 05-12-19 DS. HOSPITALIZATION/MAJOR DIAGNOSTIC PROCEDURE SURGERY RELATED REVIEW OF SYSTEMS REVIEWED BY: PROVIDER: . CONSTITUTIONAL: ANY CHANGE IN YOUR MEDICAL CONDITION? NO . CHILLS NO . FEVER NO . INFECTION: DO YOU HAVE NEW INFECTIONS? NO . DO YOU HAVE HISTORY OF MRSA? NO . MUSCULOSKELETAL: ANY NEW PATTERNS OF PAIN OR NUMBNESS? NO . GASTROENTEROLOGY: ANY NEW CHANGE IN BOWEL CONTROL? NO . GENITOURINARY: ANY NEW CHANGE IN BLADDER CONTROL? NO . IS THERE A CHANCE YOU COULD BE ? NO . HEMATOLOGY/LYMPH: DO YOU TAKE ANY BLOOD THINNERS? (FOR EXAMPLE- COUMADIN, PLAVIX, AGGRENOX, PLATEL, PRADAXA, OR XARELTO) NO . WHEN WAS YOUR LAST DOSE? DATE: TIME: . NEUROLOGY: HAVE YOU FALLEN IN THE PAST 12 MONTHS? NO . ANY NEW EXTREMITY NUMBNESS OR WEAKNESS? YES, BOTH LEGS ARE REALLY SORE AND WEAK FOR THE PAST MONTH . CARDIOLOGY: DO YOU HAVE A PACEMAKER OR DEFIBRILLATOR? NO . RESPIRATORY: HAVE YOU BEEN SICK IN THE PAST WEEK? NO . FEVER NO . FLU LIKE SYMPTOMS? NO . COUGH NO . INTEGUMENTARY: DO YOU HAVE ANY RASHES OR OPEN SORES? NO . ALLERGIC/IMMUNO: ARE YOU ALLERGIC TO IV DYE? NO . ANY NEW ALLERGIES? NO . PSYCHIATRIC: DO YOU HAVE THOUGHTS OF HURTING YOURSELF OR SOMEONE ELSE? NO . ARE YOU ABUSED, NEGLECTED, OR IN AN UNSAFE ENVIRONMENT? NO . ENDOCRINOLOGY: ARE YOU DIABETIC? YES, FSBS 144 @ 0800 . OTHER: DO YOU NEED ANY PRESCRIPTIONS? NO . IF YES, PLEASE LIST: ____ . ANY NEW PROBLEMS WITH YOUR MEDICATIONS? NO . WHEN DID YOU LAST EAT? 08/15 1999 . WHEN DID YOU LAST DRINK? 08/15 1999 . WHAT DID YOU LAST DRINK? MILK . NAME OF PERSON DRIVING YOU HOME? SHERRIE MALAGONS . DO YOU HAVE ANY OTHER QUESTIONS OR CONCERNS NO, PT HAS NOT HAD ANY VACCINES IN THE PAST 30 DAYS . VITAL SIGNS WT 264.2 LBS, HT 67.5 IN, BMI 40.76 INDEX, BP 138/78 MM HG, HR 79 /MIN, RR 18 /MIN, TEMP 97.3 F, OXYGEN SAT % 97%, SAFE IN ENV? (Y/N) Y, NA INITIALS AW 1210, REVIEWED BY: AD. ASSESSMENTS SPONDYLOSIS WITHOUT MYELOPATHY OR RADICULOPATHY, LUMBAR REGION - M47.816 (PRIMARY) SPONDYLOSIS WITHOUT MYELOPATHY OR RADICULOPATHY, LUMBOSACRAL REGION - M47.817 PROCEDURES PN WORKMANS' COMP OPINION IN YOUR OPINION, WAS THE INCIDENT THAT THE PATIENT DESCRIBED THE COMPETENT MEDICAL CAUSE OF THIS INJURY/ILLNESS? YES ARE THE PATIENT'S COMPLAINTS CONSISTENT WITH HIS/HER HISTORY OF THE INJURY/ILLNESS? YES IS THE PATIENT'S HISTORY OF THE INJURY/ILLNESS CONSISTENT WITH YOUR OBJECTIVE FINDING? YES WHAT IS THE PERCENTAGE OF TEMPORARY IMPAIRMENT? MODERATE TO MARKED = 66.7% IS THE PATIENT WORKING? NO DOCTOR ON SITE: RADHA TAI MD PN LUMBAR FACET BLOCK DIAGNOSTIC PRE PROCEDURE DIAGNOSIS LUMBAR SPONDYLOSIS, LUMBOSACRAL SPONDYLOSIS POST PROCEDURE DIAGNOSIS LUMBAR SPONDYLOSIS, LUMBOSACRAL SPONDYLOSIS PROCEDURE LEFT L4-L5 AND LEFT L5-S1 FACET BLOCK DIAGNOSTIC NUMBER [address] RADHA VALENZUELA CLINICAL OB NONE ANESTHESIA LOCAL PRE PROCEDURE NOTE THE PATIENT WITH HISTORY OF CHRONIC LOW BACK PAIN. I EVALUATED THE PATIENT AND REVIEWED THE CHART. I WENT OVER THE RISKS, ALTERNATIVES, AND BENEFITS ASSOCIATED WITH THIS PROCEDURE. THE PATIENT WOULD LIKE TO PROCEED AND GAVE CONSENT TO PERFORM THE PROCEDURE. AGREED WITH THE PATIENT WE ARE DOING THIS PROCEDURE TO DETERMINE IF THE PATIENT IS A CANDIDATE FOR A RADIOFREQUENCY ABLATION OF THE FACETS JOINTS. THE PATIENT DENIES UNEXPLAINABLE WEIGHT LOSS, FEVER, CHILLS, OR NEW CHANGES IN URINARY OR BOWEL CONTROL DESCRIPTION OF PROCEDURE THE PATIENT WAS BROUGHT TO THE PROCEDURE ROOM AND PLACED IN THE PRONE POSITION. THE LUMBOSACRAL AREA WAS CLEANED WITH CHLORAPREP SOLUTION AND DRAPED ASEPTICALLY. THE PROCEDURE WAS DONE UNDER STERILE CONDITIONS. I CHECKED LATERALITY AND THE LEVEL WHERE THE PROCEDURE WAS GOING TO BE PERFORMED WITH THE PATIENT AND THE SUPPORTING STAFF AT THE MOMENT OF THE TIME OUT IN THE PROCEDURE ROOM. UNDER FLUOROSCOPIC GUIDANCE, TARGETS WERE SELECTED AT THE INTERSECTION OF THE LEFT TRANSVERSE PROCESS OF L4, L5 AND ALA OF S1 WITH ITS RESPECTIVE SUPERIOR ARTICULAR PROCESS. LIDOCAINE WAS USED TO NUMB THE SKIN AND THE SUBCUTANEOUS TISSUE BELOW IT. SPINAL NEEDLE, 22-GAUGE WAS ADVANCED UNDER FLUOROSCOPIC GUIDANCE AND FOLLOWING PATIENT FEEDBACK UNTIL THE TARGETS WERE REACHED. POSITION OF THE NEEDLES WAS VERIFIED WITH AP AND LATERAL VIEWS. AFTER PROPER POSITION OF THE NEEDLES WAS ACHIEVED, ISOVUE-M DYE 30% 0.1 ML WAS INJECTED AT EACH SITE SHOWING ADEQUATE SPREAD OF THE DYE. THEN A SOLUTION OF 0.4 ML OF BUPIVACAINE 0.25% WAS INJECTED AT EACH SITE. THERE WAS NO EVIDENCE OF BLOOD, PARESTHESIA OR CEREBROSPINAL FLUID DURING THE PROCEDURE. THE PATIENT WAS SENT TO THE RECOVERY ROOM. THE PATIENT WAS MOVING THE EXTREMITIES AND DOING WELL. THERE WAS NO COMPLICATION DURING THE PROCEDURE. FLUOROSCOPY TIME WAS 14 SECONDS POST PROCEDURE NOTE THE PATIENT WILL DOCUMENT HIS PAIN LEVEL AND RESPONSE TO THIS PROCEDURE EVERY 30 MINUTES. THE PATIENT WILL BE SEEN IN A FOLLOW UP IN THE NEXT FEW WEEKS. FURTHER DETERMINATION FOR HIS CASE WILL BE DONE AT THE NEXT VISIT. INSTRUCTIONS WERE GIVEN, QUESTIONS WERE ANSWERED, AND THE PATIENT EXPRESSED UNDERSTANDING AND AGREED WITH THE PLAN. I, ANNABEL WOODY, DOCUMENTED THE ABOVE INFORMATION ACTING A SCRIBE FOR DR. VALENZUELA. I HAVE REVIEWED THE ABOVE DOCUMENT, WRITTEN BY ANNABEL WOODY SCRIBEliazar AND I VERIFY THAT IT IS ACCURATE. DIAGNOSTIC IMAGING [facility] FACET BLOCK (PAIN)[id number] PROCEDURE CODES 95212 INJ PARAVERT F JNT L/S 1 LEV, [place]: [place] [address] INJ PARAVERT F JNT L/S 2 LEV, MODIFIERS: LT 6045F RADXPS IN END [id number] PXD DISPOSITION & COMMUNICATION FOLLOW UP 3 WEEKS ELECTRONICALLY SIGNED BY RADHA VALENZUELA MD, MD ON 08/25/2019 AT 12:36 PM EDT DISCLAIMER : THIS IS A VISIT SUMMARY EXTRACTED FROM THE [employer] CHART. IT IS NOT A COPY OF THE [employer] PROGRESS NOTE. MTDD
== END ==
LOC: M PAIN 11:45
PROVIDERS: ATTEND Anesthesiology
DX: M47.816 Spondylosis without myelopathy or radiculopathy, lumbar region (principal); M47.817 Spondylosis without myelopathy or radiculopathy, lumbosacral region
CPT/HCPCS: 64493; 64494; Q9967

== ENCOUNTER → 2019-08-30 | Outpatient (CLI) | payer OTHER, MEDICAID ==
[~2019-08-30] MED LIST changes: -BUPIVACAINE HCL 0.25% 30 ML VIAL As Ordered ONE; -ISOVUE-M 300 61% 15ML VIAL (Q9967) As Ordered ONE; -LIDOCAINE 1% SDV INJ 30 ML VIAL As Ordered ONE
--- NOTE | 2019-09-08 03:37 | ECWPNPC ---
PATIENT NAME: HANNA GARVIN : 1955 GENDER: FEMALE VISIT DATE: 08/30/2019 DISCHARGE DATE: 08/30/19 1157 VISIT LOCKED DATE TIME: PHYSICIAN: RADHA VALENZUELA MD RESOURCE: RADHA VALENZUELA MD REASON FOR APPOINTMENT 1. DISCUSS MILD PROCEDURE HISTORY OF PRESENT ILLNESS HISTORY OF PRESENT ILLNESS: PAIN THE PATIENT DESCRIBES THE PAIN... PERMISSION FROM PATIENT WAS RECEIVED TO DO TELEPHONE OFFICE VISIT. 64 YEAR OLD FEMALE PATIENT WITH A HISTORY OF CHRONIC LOW BACK, HIPS, AND BILATERAL LEG PAIN. THE PATIENT DESCRIBES HER PAIN BURNING, HAVE IT ALL THE TIME, STABBING WITH A PAIN SCORE OF 8-10/10 DEPENDING ON PHYSICAL ACTIVITY. 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 THE PATIENT RECEIVED A DIAGNOSTIC LUMBAR FACET BLOCK IN [place] THAT HELPED DECREASED HER LOW BACK PAIN, AND ANOTHER DIAGNOSTIC LUMBAR BLOCK LAST MONTH WELL, BUT SHE SAYS DID NOT PROVIDE MUCH PAIN RELIEF FOR HER. THE PATIENT SAYS SHE EXPERIENCES PAIN THROUGH THE NIGHT THAT OFTEN WAKES HER. THE PATIENT SAYS SHE FEELS RELIEF FROM HER PAIN WHILE SITTING. THE PATIENT REPORTS EXPERIENCING TINGLING, BURNING, "PRICKS AND NEEDLES" DOWN HER LOW BACK, BUTTOCKS, AND LEGS WHEN SHE STANDS AND LAYS DOWN. THE PATIENT SAYS SHE EXPERIENCES SLIGHT PAIN RELIEF IF SHE BENDS FORWARD WHILE STANDING. THE PATIENT SAYS SHE CAN WALK 6-7 STEPS BEFORE NEEDING TO STOP, SIT DOWN, OR HOLD ON TO SOMETHING. THE PATIENT SAYS SHE WAS SEEN BY HER SPINE SURGEON, DR. MCGHEE, WHO DID NOT RECOMMEND A SPINE SURGERY, AND ANOTHER TWO SURGEONS IN [place], WHERE THE SECOND SURGEON SAID THEY WOULD OPERATE ON HER BACK, BUT THERE WAS A 10 PERCENT CHANCE OF NOT BEING ABLE TO WALK AFTERWARD SO SHE IS NO LONGER INTERESTED IN THE SURGERY. PATIENT DENIES UNEXPLAINABLE WEIGHT LOSS, FEVER, CHILLS, NEW CHANGES ON HER URINARY OR BOWEL CONTROL. FALL RISK SCREENING: SCREENING :NO FALLS REPORTED IN THE LAST YEAR CURRENT MEDICATIONS TAKING ATENOLOL 25 MG TABLET 1 TABLET ORALLY TWICE A DAY TAKING CYMBALTA 60 MG CAPSULE DELAYED RELEASE PARTICLES TAKE ONE CAPSULE BY MOUTH ORALLY BID TAKING LISINOPRIL 40 MG TABLET 1 TABLET ORALLY ONCE A DAY TAKING GLUCOMETER DIRECTED TAKING BLOOD GLUCOSE TEST - STRIP DIRECTED IN VITRO DAILY TAKING LANCETS - MISCELLANEOUS DIRECTED DAILY TAKING METFORMIN HCL 500 MG TABLET 1 TABLET WITH A MEAL ORALLY TWICE DAILY TAKING FLEXERIL 10 MG TABLET 1 TABLET ORALLY THREE TIMES A DAY TAKING GABAPENTIN 600 MG TABLET 1 CAP ORALLY TID TAKING TIZANIDINE HCL 4 MG TABLET 1 TABLET NEEDED ORALLY BEFORE BEDTIME MAY REPEAT IN 5 HRS MDD2 TAKING OXYCODONE-ACETAMINOPHEN 7.5-325 MG TABLET 1 TABLET NEEDED ORALLY FOR PAIN EVERY 8 HRS MDD3 NOT-TAKING OXYCODONE HCL 5 MG TABLET 1 TABLET NEEDED ORALLY FOR PAIN EVERY 8 HRS MDD3 MEDICATION LIST REVIEWED AND RECONCILED WITH THE PATIENT PAST MEDICAL HISTORY HTN RA LOW BACK PAIN MIGRAINES EDEMA IRON DEFICIENCY ANEMIA DIABETES CHRONIC BACK PAIN MYALGIA ALLERGIES N.K.D.A. SURGICAL HISTORY RT ANKLE ORIF, REVISED 2011, 05/13 CHOLECYSTECTOMY 2011 FAMILY HISTORY FATHER: 59 YRS, HEART ATTACK, DIAGNOSED WITH UNSPECIFIED HEART DISEASE MOTHER: 58 YRS, CANCER METS UNKNOWN ORIGIN, OTHER MALIGNANT NEOPLASM OF UNSPECIFIED SITE SIBLINGS: ALIVE, 3 BROTHERS , DIABETES, HYPERTENSION SON(S): ALIVE DAUGHTER(S): ALIVE 10 BROTHER(S) , 2 SISTER(S) . 1 SON(S) , 1 DAUGHTER(S) - HEALTHY. NEGATIVE FOR ANY UROLOGIC DISEASE. SOCIAL HISTORY GENERAL: TOBACCO USE ARE YOU A:NONSMOKER HIV / HEP-C SCREENING HIV TEST OFFERED TO PATIENT:YES DATE OFFERED:05/06/2018 TEST ACCEPTED:NO HEP-C TEST OFFERED TO PATIENT:YES DATE OFFERED:05/06/2018 REASON:PATIENT DECLINED TEST ACCEPTED:NO REASON:PATIENT DECLINED BROCHURE PROVIDED TO PATIENTNO OTHERS AT HOME: OTHER NON-RELATIVE. DIET: REGULAR. LANGUAGE IRISH. DOMESTIC VIOLENCE DO YOU FEEL SAFE IN YOUR ENVIRONMENT?YES NEW PATIENT PAIN DIARY PATIENT DESCRIBES PAIN :BURNING, HAVE IT ALL THE TIME, STABBING FROM 0-10, WHAT LEVEL IS YOUR PAIN TODAY?9 PRECIPITATING FACTORS ACTIVITY BMI CARE GOAL FOLLOW-UP ABOVE NORMAL BMI FOLLOW-UPDIETARY MANAGEMENT EDUCATION, GUIDANCE, AND COUNSELING RECREATIONAL DRUG USE DENIES. EXERCISE: NONE. 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 PAIN CLINIC PFS, CLERGY, PUBLIC HEALTH REFERRALS HAS THE PATIENT BEEN EDUCATED REGARDING HIS/HER PLAN OF CARE?YES HAS THE PATIENT BEEN EDUCATED REGARDING PAIN, THE RISK FOR PAIN, THE IMPORTANCE OF EFFECTIVE PAIN MANAGEMENT, AND THE PAIN ASSESSMENT PROCESS?YES LATEX QUESTIONNAIRE LATEX ALLERGY : HAVE YOU EVER DEVELOPED ANY TYPE OF REACTION AFTER HANDLING LATEX PRODUCTS SUCH RUBBER GLOVES, CONDOMS, DIAPHRAGMS, BALLOONS, SOCKS, OR UNDERWEAR?NO LATEX ALLERGY : HAVE YOU EVER DEVELOPED ANY TYPE OF REACTION DURING OR AFTER DENTAL APPOINTMENT, VAGINAL/RECTAL EXAMINATION, SURGICAL PROCEDURE, OR ANY OTHER EXPOSURE?NO DATE ASKED : 08/16/2019 LATEX RISK : HAVE YOU EVER HAD ANY DIFFICULTY BREATHING OR HIVES AFTER EATING OR HANDLING ANY FRUITS, OR VEGETABLES; SUCH KIWI, BANANAS, STONE FRUITS, OR CHESTNUTSNO LATEX RISK : DO YOU HAVE A PREVIOUS PERSONAL HISTORY OF MORE THAN NINE SURGERIES, SPINA BIFIDA, OR REPEATED CATHERIZATIONS? NO LATEX RISK : ARE YOU FREQUENTLY EXPOSED TO LATEX PRODUCTS IN YOUR OCCUPATION?NO CAFFEINE CAFFEINE USE?YES HOW OFTEN AND HOW MUCH? 1 COFFEE DAILY, OCCASIONAL SODA ADVANCE DIRECTIVE ADVANCE DIRECTIVE DISCUSSED WITH PATIENT:YES 08/16/2019 PT. DOES NOT HAVE ANY ADVANCED DIRECTIVES AND SHE DECLINES INFORMATION ON HCP AT THIS TIME. AD NONDENOMINATIONAL NO SCIENTOLOGY BELIEFS THAT WOULD IMPACT HEALTH CARE. MARITAL STATUS: SINGLE. ALCOHOL SCREENING DID YOU HAVE A DRINK CONTAINING ALCOHOL IN THE PAST YEAR?NO POINTS0 INTERPRETATIONNEGATIVE OCCUPATION: DISABLED. SEXUAL HX HAD SEX IN THE LAST 12 MONTHS (VAGINAL, ORAL, OR ANAL)?: YES, WITH: MEN ONLY, USE PROTECTION?: NO, HAVE YOU EVER HAD AN STD?: NO. REVIEWED WITH PT 05/14/18 1149 BVREVIEWED WITH PATIENT 05/17/18 1617 JSREVIEWED WITH PT 06/07/18 1453 BVREVIEWED WITH PT 08/13/28 0930 LASREVIEWED WITH PT 10/05/18 1337 LASREVIEWED WITH PATIENT 10/15/18 0954 JS REVIEWED WITH PATIENT 04/25/19 1023 JSREVIEWED WITH PATIENT 05-12-19 DS. HOSPITALIZATION/MAJOR DIAGNOSTIC PROCEDURE SURGERY RELATED REVIEW OF SYSTEMS REVIEWED BY: PROVIDER: RADHA VALENZUELA MD . CONSTITUTIONAL: ANY CHANGE IN YOUR MEDICAL CONDITION? NO . CHILLS NO . FEVER NO . INFECTION: DO YOU HAVE NEW INFECTIONS? NO . DO YOU HAVE HISTORY OF MRSA? NO . MUSCULOSKELETAL: ANY NEW PATTERNS OF PAIN OR NUMBNESS? NO . GASTROENTEROLOGY: ANY NEW CHANGE IN BOWEL CONTROL? NO . GENITOURINARY: ANY NEW CHANGE IN BLADDER CONTROL? NO . IS THERE A CHANCE YOU COULD BE ? NO . HEMATOLOGY/LYMPH: DO YOU TAKE ANY BLOOD THINNERS? (FOR EXAMPLE- COUMADIN, PLAVIX, AGGRENOX, PLATEL, PRADAXA, OR XARELTO) NO . WHEN WAS YOUR LAST DOSE? DATE: TIME: . NEUROLOGY: HAVE YOU FALLEN IN THE PAST 12 MONTHS? THIS WINTER FELL OFF PORCH AND BROKE 5 RIBS PT STATES "ABOUT 4 MONTHS AGO" . ANY NEW EXTREMITY NUMBNESS OR WEAKNESS? NO . CARDIOLOGY: DO YOU HAVE A PACEMAKER OR DEFIBRILLATOR? NO . RESPIRATORY: HAVE YOU BEEN SICK IN THE PAST WEEK? NO . FEVER NO . FLU LIKE SYMPTOMS? NO . COUGH NO . INTEGUMENTARY: DO YOU HAVE ANY RASHES OR OPEN SORES? NO . ALLERGIC/IMMUNO: ARE YOU ALLERGIC TO IV DYE? NO . ANY NEW ALLERGIES? NO . PSYCHIATRIC: DO YOU HAVE THOUGHTS OF HURTING YOURSELF OR SOMEONE ELSE? NO . ARE YOU ABUSED, NEGLECTED, OR IN AN UNSAFE ENVIRONMENT? NO . ENDOCRINOLOGY: ARE YOU DIABETIC? YES . OTHER: DO YOU NEED ANY PRESCRIPTIONS? NO . IF YES, PLEASE LIST: ____ . ANY NEW PROBLEMS WITH YOUR MEDICATIONS? NO . WHEN DID YOU LAST EAT? ____ . WHEN DID YOU LAST DRINK? ____ . WHAT DID YOU LAST DRINK? ____ . NAME OF PERSON DRIVING YOU HOME? ____ . DO YOU HAVE ANY OTHER QUESTIONS OR CONCERNS NO . EXAMINATION GENERAL EXAMINATION: MRI OF THE LUMBAR SPINE DONE ON 03/07/2019 SHOWS HYPERTROPHY OF LIGAMENTUM FLAVUM, BULGING DISC, AND FACET ARTHROPATHY CHANGES AT MULTIPLE LEVELS. 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 GARVIN'S PAIN MANAGEMENT CASE. BASED ON THE MRI STUDIES CLINICAL FINDINGS, I DON'T FEEL THE PATIENT IS A GOOD CANDIDATE FOR A MILD PROCEDURE AT THIS TIME. I DISCUSSED THE OPTIONS OF A DIAGNOSTIC FACET BLOCK TO CONSIDER RADIOFREQUENCY ABLATION OR A DCS TRIAL IN THE FUTURE. THE PATIENT HAS RESPONDED WELL IN THE PAST WITH DIAGNOSTIC FACET BLOCKS. THE PATIENT WILL FOLLOW UP WITH THE NURSE PRACTITIONER IN SEVERAL WEEKS TO DISCUSS FURTHER OPTIONS TO PROCEED WITH. TOTAL TIME FOR TELEPHONE VISIT WAS 25 MINUTES. INSTRUCTIONS WERE GIVEN, QUESTIONS WERE ANSWERED, PATIENT REPORTS UNDERSTANDING AND AGREES WITH THE PLAN. I, ANNABEL WOODY, DOCUMENTED THE ABOVE INFORMATION ACTING A SCRIBE FOR DR. VALENZUELA. I HAVE REVIEWED THE ABOVE DOCUMENT, WRITTEN BY ANNABEL SHELTONIBEliazar AND I VERIFY THAT IT IS ACCURATE. . PROCEDURES PN WORKMANS' COMP OPINION IN YOUR OPINION, WAS THE INCIDENT THAT THE PATIENT DESCRIBED THE COMPETENT MEDICAL CAUSE OF THIS INJURY/ILLNESS? YES ARE THE PATIENT'S COMPLAINTS CONSISTENT WITH HIS/HER HISTORY OF THE INJURY/ILLNESS? YES IS THE PATIENT'S HISTORY OF THE INJURY/ILLNESS CONSISTENT WITH YOUR OBJECTIVE FINDING? YES WHAT IS THE PERCENTAGE OF TEMPORARY IMPAIRMENT? MODERATE TO MARKED = 66.7% IS THE PATIENT WORKING? NO DOCTOR ON SITE: RADHA TAI MD DISPOSITION & COMMUNICATION FOLLOW UP 3 WEEKS ELECTRONICALLY SIGNED BY RADHA VALENZUELA MD, MD ON 09/07/2019 AT 05:17 PM EDT DISCLAIMER : THIS IS A VISIT SUMMARY EXTRACTED FROM THE [employer] CHART. IT IS NOT A COPY OF THE [employer] PROGRESS NOTE. MICHAEL
== END ==
LOC: M PAIN 10:30
PROVIDERS: ATTEND Anesthesiology
DX: M51.16 Intervertebral disc disorders with radiculopathy, lumbar region (principal); M47.816 Spondylosis without myelopathy or radiculopathy, lumbar region; G89.29 Other chronic pain; I10 Essential (primary) hypertension; G43.909 Migraine, unspecified, not intractable, without status migrainosus; E11.9 Type 2 diabetes mellitus without complications; M79.10 Myalgia, unspecified site; Z79.84 Long term (current) use of oral hypoglycemic drugs; Z79.899 Other long term (current) drug therapy

== ENCOUNTER → 2019-09-07 | Outpatient (CLI) | payer OTHER, MEDICAID ==
--- NOTE | 2019-09-09 00:14 | ECWPNPC ---
PATIENT NAME: HANNA GARVIN : 1955 GENDER: FEMALE VISIT DATE: 09/07/2019 DISCHARGE DATE: 09/07/19 1006 VISIT LOCKED DATE TIME: PHYSICIAN: BRIDGETTE CALDWELL RESOURCE: BRIDGETTE CALDWELL REASON FOR APPOINTMENT 1. W/C LOW BACK PER DR HISTORY OF PRESENT ILLNESS HISTORY OF PRESENT ILLNESS: PAIN THE PATIENT DESCRIBES THE PAINDURING THE LAST MONTH SEVERITY - PAIN SCORE OF7/10 LOCATIONSLOWER BACK QUALITYACHING , BURNING, SHARP DURATIONCONTINUOUS, CONSTANT, ALL DAY, AWAKENS FROM SLEEEP PAIN IS INCREASED BY:ACTIVITIES, PROLONGED STANDING PAIN IS DECREASED BY:SITTING 64-YEAR-OLD FEMALE IN FOR POST DIAGNOSTIC FACET BLOCK #2. SHE RATES HER PAIN PREPROCEDURE AT A 10 OUT OF 10 AND POST PROCEDURE TO 3 OUT OF 10 TIMES ONE DAY. SHE RATES HER PAIN CURRENTLY AT A 7 OUT OF 10 AND DESCRIBES IT ACHING, BURNING, AND SHARP. FALL RISK SCREENING: SCREENING :NO FALLS REPORTED IN THE LAST YEAR CURRENT MEDICATIONS TAKING ATENOLOL 25 MG TABLET 1 TABLET ORALLY TWICE A DAY TAKING CYMBALTA 60 MG CAPSULE DELAYED RELEASE PARTICLES TAKE ONE CAPSULE BY MOUTH ORALLY BID TAKING LISINOPRIL 40 MG TABLET 1 TABLET ORALLY ONCE A DAY TAKING GLUCOMETER DIRECTED TAKING BLOOD GLUCOSE TEST - STRIP DIRECTED IN VITRO DAILY TAKING LANCETS - MISCELLANEOUS DIRECTED DAILY TAKING METFORMIN HCL 500 MG TABLET 1 TABLET WITH A MEAL ORALLY TWICE DAILY TAKING FLEXERIL 10 MG TABLET 1 TABLET ORALLY THREE TIMES A DAY TAKING GABAPENTIN 600 MG TABLET 1 CAP ORALLY TID TAKING TIZANIDINE HCL 4 MG TABLET 1 TABLET NEEDED ORALLY BEFORE BEDTIME MAY REPEAT IN 5 HRS MDD2 TAKING OXYCODONE-ACETAMINOPHEN 7.5-325 MG TABLET 1 TABLET NEEDED ORALLY FOR PAIN EVERY 8 HRS MDD3 NOT-TAKING OXYCODONE HCL 5 MG TABLET 1 TABLET NEEDED ORALLY FOR PAIN EVERY 8 HRS MDD3 MEDICATION LIST REVIEWED AND RECONCILED WITH THE PATIENT PAST MEDICAL HISTORY HTN RA LOW BACK PAIN MIGRAINES EDEMA IRON DEFICIENCY ANEMIA DIABETES CHRONIC BACK PAIN MYALGIA ALLERGIES N.K.D.A. SURGICAL HISTORY RT ANKLE ORIF, REVISED 2011, 05/13 CHOLECYSTECTOMY 2011 FAMILY HISTORY FATHER: 59 YRS, HEART ATTACK, DIAGNOSED WITH UNSPECIFIED HEART DISEASE MOTHER: 58 YRS, CANCER METS UNKNOWN ORIGIN, OTHER MALIGNANT NEOPLASM OF UNSPECIFIED SITE SIBLINGS: ALIVE, 3 BROTHERS , DIABETES, HYPERTENSION SON(S): ALIVE DAUGHTER(S): ALIVE 10 BROTHER(S) , 2 SISTER(S) . 1 SON(S) , 1 DAUGHTER(S) - HEALTHY. NEGATIVE FOR ANY UROLOGIC DISEASE. SOCIAL HISTORY GENERAL: TOBACCO USE ARE YOU A:NONSMOKER HIV / HEP-C SCREENING HIV TEST OFFERED TO PATIENT:YES DATE OFFERED:05/06/2018 TEST ACCEPTED:NO HEP-C TEST OFFERED TO PATIENT:YES DATE OFFERED:05/06/2018 REASON:PATIENT DECLINED TEST ACCEPTED:NO REASON:PATIENT DECLINED BROCHURE PROVIDED TO PATIENTNO OTHERS AT HOME: OTHER NON-RELATIVE. DIET: REGULAR. LANGUAGE URDU. DOMESTIC VIOLENCE DO YOU FEEL SAFE IN YOUR ENVIRONMENT?YES NEW PATIENT PAIN DIARY PATIENT DESCRIBES PAIN :BURNING, HAVE IT ALL THE TIME, STABBING FROM 0-10, WHAT LEVEL IS YOUR PAIN TODAY?9 PRECIPITATING FACTORS ACTIVITY BMI CARE GOAL FOLLOW-UP ABOVE NORMAL BMI FOLLOW-UPDIETARY MANAGEMENT EDUCATION, GUIDANCE, AND COUNSELING RECREATIONAL DRUG USE DENIES. EXERCISE: NONE. LEARNING BARRIERS / SPECIAL NEEDS CHANGE FROM LAST VISIT?NO BARRIERS TO LEARNING?NO HEARING IMPAIRED?NO VISION IMPAIRED?NO COGNITIVELY IMPAIRED?NO READINESS TO LEARN?YES LEARNING PREFERENCES?NO LEARNING CAPABILITIES PRESENT?YES EMOTIONAL BARRIERS?NO SPECIAL DEVICES?NO AGRICULTURE INSTRUCTOR NEEDED?NO PAIN CLINIC PFS, CLERGY, PUBLIC HEALTH REFERRALS HAS THE PATIENT BEEN EDUCATED REGARDING HIS/HER PLAN OF CARE?YES HAS THE PATIENT BEEN EDUCATED REGARDING PAIN, THE RISK FOR PAIN, THE IMPORTANCE OF EFFECTIVE PAIN MANAGEMENT, AND THE PAIN ASSESSMENT PROCESS?YES LATEX QUESTIONNAIRE LATEX ALLERGY : HAVE YOU EVER DEVELOPED ANY TYPE OF REACTION AFTER HANDLING LATEX PRODUCTS SUCH RUBBER GLOVES, CONDOMS, DIAPHRAGMS, BALLOONS, SOCKS, OR UNDERWEAR?NO LATEX ALLERGY : HAVE YOU EVER DEVELOPED ANY TYPE OF REACTION DURING OR AFTER DENTAL APPOINTMENT, VAGINAL/RECTAL EXAMINATION, SURGICAL PROCEDURE, OR ANY OTHER EXPOSURE?NO DATE ASKED : 08/16/2019 LATEX RISK : HAVE YOU EVER HAD ANY DIFFICULTY BREATHING OR HIVES AFTER EATING OR HANDLING ANY FRUITS, OR VEGETABLES; SUCH KIWI, BANANAS, STONE FRUITS, OR CHESTNUTSNO LATEX RISK : DO YOU HAVE A PREVIOUS PERSONAL HISTORY OF MORE THAN NINE SURGERIES, SPINA BIFIDA, OR REPEATED CATHERIZATIONS? NO LATEX RISK : ARE YOU FREQUENTLY EXPOSED TO LATEX PRODUCTS IN YOUR OCCUPATION?NO CAFFEINE CAFFEINE USE?YES HOW OFTEN AND HOW MUCH? 1 COFFEE DAILY, OCCASIONAL SODA ADVANCE DIRECTIVE ADVANCE DIRECTIVE DISCUSSED WITH PATIENT:YES PT. DOES NOT HAVE ANY ADVANCED DIRECTIVES AND SHE DECLINES INFORMATION ON HCP AT THIS TIME. AD CONGREGATIONAL NO MORMONISM BELIEFS THAT WOULD IMPACT HEALTH CARE. MARITAL STATUS: SINGLE. ALCOHOL SCREENING DID YOU HAVE A DRINK CONTAINING ALCOHOL IN THE PAST YEAR?NO POINTS0 INTERPRETATIONNEGATIVE OCCUPATION: DISABLED. SEXUAL HX HAD SEX IN THE LAST 12 MONTHS (VAGINAL, ORAL, OR ANAL)?: YES, WITH: MEN ONLY, USE PROTECTION?: NO, HAVE YOU EVER HAD AN STD?: NO. HOSPITALIZATION/MAJOR DIAGNOSTIC PROCEDURE SURGERY RELATED REVIEW OF SYSTEMS REVIEWED BY: PROVIDER: SARAHI CALDWELL HYPERTRICHOLOGIST-C . CONSTITUTIONAL: ANY CHANGE IN YOUR MEDICAL CONDITION? NO . CHILLS NO . FEVER NO . INFECTION: DO YOU HAVE NEW INFECTIONS? NO . DO YOU HAVE HISTORY OF MRSA? NO . MUSCULOSKELETAL: ANY NEW PATTERNS OF PAIN OR NUMBNESS? NO . GASTROENTEROLOGY: ANY NEW CHANGE IN BOWEL CONTROL? NO . GENITOURINARY: ANY NEW CHANGE IN BLADDER CONTROL? NO . IS THERE A CHANCE YOU COULD BE ? NO . HEMATOLOGY/LYMPH: DO YOU TAKE ANY BLOOD THINNERS? (FOR EXAMPLE- COUMADIN, PLAVIX, AGGRENOX, PLATEL, PRADAXA, OR XARELTO) NO . WHEN WAS YOUR LAST DOSE? DATE: TIME: . NEUROLOGY: HAVE YOU FALLEN IN THE PAST 12 MONTHS? NO . ANY NEW EXTREMITY NUMBNESS OR WEAKNESS? NO . CARDIOLOGY: DO YOU HAVE A PACEMAKER OR DEFIBRILLATOR? NO . RESPIRATORY: HAVE YOU BEEN SICK IN THE PAST WEEK? NO . FEVER NO . FLU LIKE SYMPTOMS? NO . COUGH NO . INTEGUMENTARY: DO YOU HAVE ANY RASHES OR OPEN SORES? NO . ALLERGIC/IMMUNO: ARE YOU ALLERGIC TO IV DYE? NO . ANY NEW ALLERGIES? NO . PSYCHIATRIC: DO YOU HAVE THOUGHTS OF HURTING YOURSELF OR SOMEONE ELSE? NO . ARE YOU ABUSED, NEGLECTED, OR IN AN UNSAFE ENVIRONMENT? NO . ENDOCRINOLOGY: ARE YOU DIABETIC? NO . OTHER: DO YOU NEED ANY PRESCRIPTIONS? NO . IF YES, PLEASE LIST: ____ . ANY NEW PROBLEMS WITH YOUR MEDICATIONS? NO . WHEN DID YOU LAST EAT? ____ . WHEN DID YOU LAST DRINK? ____ . WHAT DID YOU LAST DRINK? ____ . NAME OF PERSON DRIVING YOU HOME? ____ . DO YOU HAVE ANY OTHER QUESTIONS OR CONCERNS NO . VITAL SIGNS WT 258.2 LBS, HT 67.5 IN, BMI 39.84 INDEX, BP 130/89 MM HG, HR 72 /MIN, RR 18 /MIN, TEMP 97.0 F, OXYGEN SAT % 96%, SAFE IN ENV? (Y/N) YES, NA INITIALS AW 0914, REVIEWED BY: MASON YOUNG LPN. EXAMINATION GENERAL EXAMINATION: GENERALNO ACUTE DISTRESS, WELL NOURISHED AND HYDRATED. PSYCHAPPROPRIATE MOOD AND AFFECT . LUNGS:CLEAR TO AUSCULTATION BILATERALLY, NO WHEEZES, RHONCHI, RALES. HEART:NO MURMURS, REGULAR RATE AND RHYTHM. BACK:POINT TENDER ALONG LUMBAR SPINE, SURROUNDING SKIN SHOWS NO ERYTHEMA, ECCHYMOSIS, INCREASED WARMTH, AND/OR SKIN ERUPTIONS NOTED. . ASSESSMENTS SPONDYLOSIS WITHOUT MYELOPATHY OR RADICULOPATHY, LUMBOSACRAL REGION - M47.817 (PRIMARY) TREATMENT SPONDYLOSIS WITHOUT MYELOPATHY OR RADICULOPATHY, LUMBOSACRAL REGION CLINICAL NOTES: 64-YEAR-OLD FEMALE IN FOR CHRONIC PAIN FOLLOW-UP. GIVEN PRESENTING SYMPTOMS AND RESULTS OF PHYSICAL EXAMINATION RECOMMENDED RF PROCEDURE LEFT SIDE L4-L5 L5-S1 WITH POSTPROCEDURAL FOLLOW-UP. PATIENT HAS EXPRESSED UNDERSTANDING OF AND WAS IN AGREEMENT WITH TREATMENT PLAN. GIVEN TIME TO ASK QUESTIONS AND EXPRESS CONCERNS., ISTOP REGISTRY REVIEWED AND DEMONSTRATES COMPLLIANCE. (REF # [id number] ) BRINGS IN MEDICATIONS WHICH IS APPROPRIATE FOR WHAT WAS DISPENSED. RECENT URINE TOXICOLOGY REVIEWED. NO UNAUTHORIZED MEDICATIONS. NO ILLICIT SUBSTANCES AND PRESCRIBED MEDICATIONS WERE PRESENT. OTHERS NOTES: RADIOFREQUENCY ABLATION MATERIAL WAS PRINTED. PROCEDURES PN WORKMANS' COMP OPINION IN YOUR OPINION, WAS THE INCIDENT THAT THE PATIENT DESCRIBED THE COMPETENT MEDICAL CAUSE OF THIS INJURY/ILLNESS? YES ARE THE PATIENT'S COMPLAINTS CONSISTENT WITH HIS/HER HISTORY OF THE INJURY/ILLNESS? YES IS THE PATIENT'S HISTORY OF THE INJURY/ILLNESS CONSISTENT WITH YOUR OBJECTIVE FINDING? YES WHAT IS THE PERCENTAGE OF TEMPORARY IMPAIRMENT? MODERATE TO MARKED = 66.7% IS THE PATIENT WORKING? NO DOCTOR ON SITE: RADHA TAI MD PROCEDURE CODES FA211 ESTABILISHED PATIENT [facility] CHARGE DISPOSITION & COMMUNICATION FOLLOW UP POSTPROCEDURE (REASON: RF PROCEDURE LEFT SIDE L4-L5 L5-S1) ELECTRONICALLY SIGNED BY MELY CUELLO ON 09/08/2019 AT 09:15 AM EDT DISCLAIMER : THIS IS A VISIT SUMMARY EXTRACTED FROM THE [employer] CHART. IT IS NOT A COPY OF THE [employer] PROGRESS NOTE. MICHAEL
== END ==
LOC: M PAIN 09:15
PROVIDERS: ATTEND Family Medicine
DX: M47.817 Spondylosis without myelopathy or radiculopathy, lumbosacral region (principal); I10 Essential (primary) hypertension; G43.909 Migraine, unspecified, not intractable, without status migrainosus; E11.9 Type 2 diabetes mellitus without complications; M79.10 Myalgia, unspecified site; Z79.84 Long term (current) use of oral hypoglycemic drugs; Z79.899 Other long term (current) drug therapy

== ENCOUNTER 2019-09-26 14:42 | Emergency (ER) | payer MEDICAID, OTHER ==
[~2019-09-26] VITALS: Ht 172.7 cm; Wt 118.2 kg
[2019-09-26] MEDS ORDERED: METF500T13 (14:52)
[2019-09-26] MEDS ORDERED: diazePAM 10MG/2ML SYRINGE (J3360 PER 5MG) IM ONE (15:30)
[2019-09-26] MEDS ORDERED: KETOROLAC 60 MG/2 ML VIAL IM ONE (15:30)
[2019-09-26 17:08] VITALS: BP 161/91
== END 2019-09-26 17:09 | disposition home or self-care (01) ==
LOC: M ED 14:42
DX: M54.5 Low back pain (principal); Z90.49 Acquired absence of other specified parts of digestive tract; E78.00 Pure hypercholesterolemia, unspecified; I10 Essential (primary) hypertension; E11.40 Type 2 diabetes mellitus with diabetic neuropathy, unspecified; Z79.84 Long term (current) use of oral hypoglycemic drugs; Z79.899 Other long term (current) drug therapy; K21.9 Gastro-esophageal reflux disease without esophagitis; Z87.440 Personal history of urinary (tract) infections; F41.9 Anxiety disorder, unspecified; F32.9 Major depressive disorder, single episode, unspecified
CPT/HCPCS: 99283; J1885; J3360

== ENCOUNTER → 2019-10-20 | Outpatient (CLI) | payer OTHER, MEDICAID ==
[~2019-10-20] MED LIST changes: +BUPIVACAINE HCL 0.25% 30ML VIAL As Ordered ONE; +ISOVUE-M 300 61% 15ML VIAL As Ordered ONE; +LIDOCAINE 1% SDV 30ML VIAL As Ordered ONE; -METF-791 PO; +METF-838 PO; +METF500T13; +dexameTHASONE 10MG/1ML VIAL PRES.FREE (J1100 PER 1MG) As Ordered ONE; +diazePAM 5 MG TAB As Ordered ONE; +oxyCODONE 5MG TAB As Ordered ONE
--- NOTE | 2019-10-20 14:42 | REP ---
Partial lumbar spine series: Three views . History: Injection procedure for pain. 1 minute 41 seconds of fluoroscopy time is reported. Findings: A sequence of three fluoroscopically obtained last image hold procedural spot radiographs of the lumbar spine document needle position and contrast injection associated with injection procedure. Electronically Signed by Kennedy Winslow MD 10/20/2019 02:34 P
--- NOTE | 2019-10-26 04:00 | ECWPNPC ---
PATIENT NAME: HANNA GARVIN : 1955 GENDER: FEMALE VISIT DATE: 10/20/2019 DISCHARGE DATE: 10/20/19 145 VISIT LOCKED DATE TIME: PHYSICIAN: RADHA VALENZUELA MD RESOURCE: RADHA VALENZUELA MD REASON FOR APPOINTMENT 1. (LEFT) L4/L5, L5/S1 RADIOFREQUENCY PAT PHONE CALL COMPLETED HISTORY OF PRESENT ILLNESS HISTORY OF PRESENT ILLNESS: PAIN THE PATIENT DESCRIBES THE PAIN... FALL RISK SCREENING: SCREENING :NO FALLS REPORTED IN THE LAST YEAR CURRENT MEDICATIONS TAKING ATENOLOL 25 MG TABLET 1 TABLET ORALLY TWICE A DAY, NOTES: 10/20/2019 0700 TAKING CYMBALTA 60 MG CAPSULE DELAYED RELEASE PARTICLES TAKE ONE CAPSULE BY MOUTH ORALLY BID, NOTES: 10/20/2019 0700 TAKING LISINOPRIL 40 MG TABLET 1 TABLET ORALLY ONCE A DAY, NOTES: 10/19/2019 0700 TAKING GLUCOMETER DIRECTED TAKING BLOOD GLUCOSE TEST - STRIP DIRECTED IN VITRO DAILY TAKING LANCETS - MISCELLANEOUS DIRECTED DAILY TAKING METFORMIN HCL 500 MG TABLET 1 TABLET WITH A MEAL ORALLY TWICE DAILY, NOTES: 10/19/2019 1800 TAKING FLEXERIL 10 MG TABLET 1 TABLET ORALLY THREE TIMES A DAY, NOTES: 10/20/2019 0700 TAKING GABAPENTIN 600 MG TABLET 1 CAP ORALLY TID, NOTES: 10/20/2019 0700 TAKING TIZANIDINE HCL 4 MG TABLET 1 TABLET NEEDED ORALLY BEFORE BEDTIME MAY REPEAT IN 5 HRS MDD2, NOTES: 10/19/2019 1900 TAKING OXYCODONE-ACETAMINOPHEN 7.5-325 MG TABLET 1 TABLET NEEDED ORALLY FOR PAIN EVERY 8 HRS MDD3, NOTES: 10/19/2019 1900 NOT-TAKING OXYCODONE HCL 5 MG TABLET 1 TABLET NEEDED ORALLY FOR PAIN EVERY 8 HRS MDD3 MEDICATION LIST REVIEWED AND RECONCILED WITH THE PATIENT PAST MEDICAL HISTORY HTN RA LOW BACK PAIN MIGRAINES EDEMA IRON DEFICIENCY ANEMIA DIABETES CHRONIC BACK PAIN MYALGIA ALLERGIES N.K.D.A. SURGICAL HISTORY RT ANKLE ORIF, REVISED 2011, 05/13 CHOLECYSTECTOMY 2011 FAMILY HISTORY FATHER: 59 YRS, HEART ATTACK, DIAGNOSED WITH UNSPECIFIED HEART DISEASE MOTHER: 58 YRS, CANCER METS UNKNOWN ORIGIN, OTHER MALIGNANT NEOPLASM OF UNSPECIFIED SITE SIBLINGS: ALIVE, 3 BROTHERS , DIABETES, HYPERTENSION SON(S): ALIVE DAUGHTER(S): ALIVE 10 BROTHER(S) , 2 SISTER(S) . 1 SON(S) , 1 DAUGHTER(S) - HEALTHY. NEGATIVE FOR ANY UROLOGIC DISEASE. SOCIAL HISTORY GENERAL: TOBACCO USE ARE YOU A:NONSMOKER LATEX QUESTIONNAIRE LATEX ALLERGY : HAVE YOU EVER DEVELOPED ANY TYPE OF REACTION AFTER HANDLING LATEX PRODUCTS SUCH RUBBER GLOVES, CONDOMS, DIAPHRAGMS, BALLOONS, SOCKS, OR UNDERWEAR?NO LATEX ALLERGY : HAVE YOU EVER DEVELOPED ANY TYPE OF REACTION DURING OR AFTER DENTAL APPOINTMENT, VAGINAL/RECTAL EXAMINATION, SURGICAL PROCEDURE, OR ANY OTHER EXPOSURE?NO DATE ASKED : 08/16/2019 LATEX RISK : HAVE YOU EVER HAD ANY DIFFICULTY BREATHING OR HIVES AFTER EATING OR HANDLING ANY FRUITS, OR VEGETABLES; SUCH KIWI, BANANAS, STONE FRUITS, OR CHESTNUTSNO LATEX RISK : DO YOU HAVE A PREVIOUS PERSONAL HISTORY OF MORE THAN NINE SURGERIES, SPINA BIFIDA, OR REPEATED CATHERIZATIONS? NO LATEX RISK : ARE YOU FREQUENTLY EXPOSED TO LATEX PRODUCTS IN YOUR OCCUPATION?NO BMI CARE GOAL FOLLOW-UP ABOVE NORMAL BMI FOLLOW-UPDIETARY MANAGEMENT EDUCATION, GUIDANCE, AND COUNSELING ALCOHOL SCREENING DID YOU HAVE A DRINK CONTAINING ALCOHOL IN THE PAST YEAR?NO POINTS0 INTERPRETATIONNEGATIVE RECREATIONAL DRUG USE DENIES. CAFFEINE CAFFEINE USE?YES HOW OFTEN AND HOW MUCH? 1 COFFEE DAILY, OCCASIONAL SODA SEXUAL HX HAD SEX IN THE LAST 12 MONTHS (VAGINAL, ORAL, OR ANAL)?: YES, WITH: MEN ONLY, USE PROTECTION?: NO, HAVE YOU EVER HAD AN STD?: NO. HIV / HEP-C SCREENING HIV TEST OFFERED TO PATIENT:YES DATE OFFERED:05/06/2018 TEST ACCEPTED:NO HEP-C TEST OFFERED TO PATIENT:YES DATE OFFERED:05/06/2018 REASON:PATIENT DECLINED TEST ACCEPTED:NO REASON:PATIENT DECLINED BROCHURE PROVIDED TO PATIENTNO JAINISM NO UATSDIN BELIEFS THAT WOULD IMPACT HEALTH CARE. LANGUAGE COOK ISLANDER. LEARNING BARRIERS / SPECIAL NEEDS CHANGE FROM LAST VISIT?NO BARRIERS TO LEARNING?NO HEARING IMPAIRED?NO VISION IMPAIRED?NO COGNITIVELY IMPAIRED?NO READINESS TO LEARN?YES LEARNING PREFERENCES?NO LEARNING CAPABILITIES PRESENT?YES EMOTIONAL BARRIERS?NO SPECIAL DEVICES?NO CLIENT ACCOUNT REPRESENTATIVE NEEDED?NO DOMESTIC VIOLENCE DO YOU FEEL SAFE IN YOUR ENVIRONMENT?YES OCCUPATION: DISABLED. DIET: REGULAR. EXERCISE: NONE. MARITAL STATUS: SINGLE. OTHERS AT HOME: OTHER NON-RELATIVE. NEW PATIENT PAIN DIARY PATIENT DESCRIBES PAIN :ACHING, BURNING, HAVE IT ALL THE TIME, STABBING FROM 0-10, WHAT LEVEL IS YOUR PAIN TODAY?8 PRECIPITATING FACTORS ACTIVITY, LIFTING, PROLONGED STANDING ALLEVIATING FACTORS RESTING HELPS SOME, BUT STILL ACHES PAIN CLINIC PFS, CLERGY, PUBLIC HEALTH REFERRALS HAS THE PATIENT BEEN EDUCATED REGARDING HIS/HER PLAN OF CARE?YES HAS THE PATIENT BEEN EDUCATED REGARDING PAIN, THE RISK FOR PAIN, THE IMPORTANCE OF EFFECTIVE PAIN MANAGEMENT, AND THE PAIN ASSESSMENT PROCESS?YES ADVANCE DIRECTIVE ADVANCE DIRECTIVE DISCUSSED WITH PATIENT:YES 10/20/2019 PT. DOES NOT HAVE ANY ADVANCED DIRECTIVES AND SHE DECLINES INFORMATION ON HCP AT THIS TIME. AD HOSPITALIZATION/MAJOR DIAGNOSTIC PROCEDURE SURGERY RELATED REVIEW OF SYSTEMS REVIEWED BY: PROVIDER: RADHA VALENZUELA MD . CONSTITUTIONAL: ANY CHANGE IN YOUR MEDICAL CONDITION? NO . CHILLS NO . FEVER NO . INFECTION: DO YOU HAVE NEW INFECTIONS? NO . DO YOU HAVE HISTORY OF MRSA? NO . MUSCULOSKELETAL: ANY NEW PATTERNS OF PAIN OR NUMBNESS? NO . GASTROENTEROLOGY: ANY NEW CHANGE IN BOWEL CONTROL? NO . GENITOURINARY: ANY NEW CHANGE IN BLADDER CONTROL? NO . IS THERE A CHANCE YOU COULD BE ? NO . HEMATOLOGY/LYMPH: DO YOU TAKE ANY BLOOD THINNERS? (FOR EXAMPLE- COUMADIN, PLAVIX, AGGRENOX, PLATEL, PRADAXA, OR XARELTO) NO . WHEN WAS YOUR LAST DOSE? DATE: TIME: . NEUROLOGY: HAVE YOU FALLEN IN THE PAST 12 MONTHS? NO . ANY NEW EXTREMITY NUMBNESS OR WEAKNESS? NO . CARDIOLOGY: DO YOU HAVE A PACEMAKER OR DEFIBRILLATOR? NO . RESPIRATORY: HAVE YOU BEEN SICK IN THE PAST WEEK? PT HAS A STUFFY NOSE, HAS A LITTLE BIT OF A COUGH, THINKS IT IS HER ALLERGIES . FEVER NO . FLU LIKE SYMPTOMS? NO . COUGH NO . INTEGUMENTARY: DO YOU HAVE ANY RASHES OR OPEN SORES? NO . ALLERGIC/IMMUNO: ARE YOU ALLERGIC TO IV DYE? NO . ANY NEW ALLERGIES? NO . PSYCHIATRIC: DO YOU HAVE THOUGHTS OF HURTING YOURSELF OR SOMEONE ELSE? NO . ARE YOU ABUSED, NEGLECTED, OR IN AN UNSAFE ENVIRONMENT? NO . ENDOCRINOLOGY: ARE YOU DIABETIC? YES FSBS 170 @ 1104 . OTHER: DO YOU NEED ANY PRESCRIPTIONS? NO . IF YES, PLEASE LIST: ____ . ANY NEW PROBLEMS WITH YOUR MEDICATIONS? NO . WHEN DID YOU LAST EAT? 10/19/2019 1830 . WHEN DID YOU LAST DRINK? 10/20/2019 0700 . WHAT DID YOU LAST DRINK? WATER . NAME OF PERSON DRIVING YOU HOME? SHERRIE MAYORGA . DO YOU HAVE ANY OTHER QUESTIONS OR CONCERNS NO . VITAL SIGNS WT 264 LBS, HT 67.5 IN, BMI 40.73 INDEX, BP 172/86 MM HG, HR 72 /MIN, RR 18 /MIN, TEMP 97.0 F, OXYGEN SAT % 95%, SAFE IN ENV? (Y/N) Y, NA INITIALS AW 1022, REVIEWED BY: AD. ASSESSMENTS SPONDYLOSIS WITHOUT MYELOPATHY OR RADICULOPATHY, LUMBAR REGION - M47.816 (PRIMARY) SPONDYLOSIS WITHOUT MYELOPATHY OR RADICULOPATHY, LUMBOSACRAL REGION - M47.817 TREATMENT SPONDYLOSIS WITHOUT MYELOPATHY OR RADICULOPATHY, LUMBOSACRAL REGION SMC FACET BLOCK (PAIN)[id number] PROCEDURES PN WORKMANS' COMP OPINION IN YOUR OPINION, WAS THE INCIDENT THAT THE PATIENT DESCRIBED THE COMPETENT MEDICAL CAUSE OF THIS INJURY/ILLNESS? YES ARE THE PATIENT'S COMPLAINTS CONSISTENT WITH HIS/HER HISTORY OF THE INJURY/ILLNESS? YES IS THE PATIENT'S HISTORY OF THE INJURY/ILLNESS CONSISTENT WITH YOUR OBJECTIVE FINDING? YES WHAT IS THE PERCENTAGE OF TEMPORARY IMPAIRMENT? MODERATE TO MARKED = 66.7% IS THE PATIENT WORKING? NO DOCTOR ON SITE: RADHA TAI MD PRE PROCEDURE DIAGNOSES: 1. LUMBAR SPONDYLOSIS. 2. LUMBOSACRAL SPONDYLOSIS. POST PROCEDURE DIAGNOSES: 1. LUMBAR SPONDYLOSIS. 2. LUMBOSACRAL SPONDYLOSIS. PROCEDURE: LEFT L4-L5 AND LEFT L5-S1 LUMBAR FACET RADIOFREQUENCY. SURGEON: DR. RADHA VALENZUELA. FAGOTER: NONE. ANESTHESIA: LOCAL. PRE PROCEDURE REPORT: THE PATIENT HAS HISTORY OF CHRONIC LOW BACK PAIN. I EVALUATED THE PATIENT AND REVIEWED THE CHART. I WENT OVER THE RISKS, ALTERNATIVES, AND BENEFITS ASSOCIATED WITH THIS PROCEDURE. I DISCUSSED THAT THE USE OF STEROIDS MAY CONTRIBUTE TO IMMUNOSUPPRESSION OF THE PATIENT'S BODY AGAINST INFECTIONS SUCH THE ERNANDEZ VIRUS, COVID-19. THE PATIENT IS AWARE OF THE POTENTIAL COMPLICATIONS ASSOCIATED WITH AN INFECTION OF THIS VIRUS INCLUDING . THE PATIENT WOULD LIKE TO PROCEED AND GIVE CONSENT TO PERFORMED THE PROCEDURE. THE PATIENT DENIES UNEXPLAINABLE WEIGHT LOSS, FEVER, CHILLS, OR NEW CHANGES IN URINARY OR BOWEL CONTROL. THE PATIENT IS COVID-19 NEGATIVE.DESCRIPTION OF PROCEDURE: THE PATIENT WAS BROUGHT TO THE PROCEDURE ROOM AND PLACED IN THE PRONE POSITION. THE LUMBOSACRAL AREA WAS CLEANED WITH CHLORAPREP SOLUTION AND DRAPED ASEPTICALLY. THE PROCEDURE WAS DONE UNDER STERILE CONDITIONS. I CHECKED LATERALITY AND THE LEVEL WHERE THE PROCEDURE WAS GOING TO BE PERFORMED WITH THE PATIENT AND THE SUPPORTING STAFF AT THE MOMENT OF THE TIME OUT IN THE PROCEDURE ROOM. UNDER FLUOROSCOPIC GUIDANCE, TARGETS WERE SELECTED AT THE INTERSECTION OF THE LEFT TRANSVERSE PROCESS OF L4, L5 AND ALA OF S1 WITH ITS RESPECTIVE SUPERIOR ARTICULAR PROCESS. LIDOCAINE WAS USED TO NUMB THE SKIN AND THE SUBCUTANEOUS TISSUE BELOW IT. RADIOFREQUENCY NEEDLES, 17-GAUGE, 15 CM LONG WITH 4 MM ACTIVE TIP, WERE ADVANCED UNDER FLUOROSCOPIC GUIDANCE AND FOLLOWING PATIENT FEEDBACK UNTIL THE TARGET AREA WAS REACHED. POSITION OF THE NEEDLES WAS VERIFIED WITH AP AND LATERAL VIEWS. AFTER PROPER POSITION OF THE NEEDLE WAS ACHIEVED, WE WORKED WITH THE LEFT SELECTED MEDIAN BRANCHES OF L3, L4 AND THE DORSAL RAMI OF L5. WE MEASURED THE CORRESPONDING IMPEDANCES AND MOTOR RESPONSES INDICATED IN THE RADIOFREQUENCY WORKSHEET. POSITION OF THE NEEDLES WAS VERIFIED AGAIN WITH AP AND LATERAL VIEWS. LIDOCAINE 1%, 2 ML, WAS INJECTED AT EACH LEVEL. RADIOFREQUENCY WAS DONE AT EACH LEVEL USING THE Pantea SYSTEM-- COOLED RF-- WITH A SETTING AT THE MACHINE OF 60 DEGREES WITH A TARGET TISSUE TEMPERATURE OF 80 TO 90 DEGREES FOR A MINIMUM OF 150 SECONDS. AFTER RADIOFREQUENCY WAS DONE, THE PATIENT RECEIVED BUPIVACAINE 0.125% 1 ML WITH DEXAMETHASONE 2 MG AT EACH SITE. THERE WAS NO EVIDENCE OF BLOOD, PARESTHESIA OR CEREBROSPINAL FLUID DURING THE PROCEDURE. THE PATIENT WAS SENT TO THE RECOVERY ROOM. THE PATIENT WAS MOVING THE EXTREMITIES AND DOING WELL. THERE WAS NO COMPLICATION DURING THE PROCEDURE. FLUOROSCOPY TIME WAS 1 MINUTE 41 SECONDS. POST PROCEDURE NOTE: THE PATIENT WILL BE SEEN IN A FOLLOW UP IN THE NEXT FEW WEEKS. INSTRUCTIONS WERE GIVEN, QUESTIONS WERE ANSWERED, AND THE PATIENT EXPRESSED UNDERSTANDING AND AGREES WITH THE PLAN. THE PATIENT IS AWARE TO STAY HOME FOR THE NEXT WEEK, IF POSSIBLE, DUE TO COVID-19. I, DANIEL JOSE, DOCUMENTED THE ABOVE INFORMATION ACTING A SCRIBE FOR DR. VALENZUELA. I HAVE REVIEWED THE ABOVE DOCUMENT, WRITTEN BY DANIEL JOSE, WILMER, AND I VERIFY THAT IT IS ACCURATE. PROCEDURE CODES 95844 DESTROY LUMB/SAC FACET JNT, [place]IF[place]: [place] [address] DESTROY L/S FACET JNT ADDL, MODIFIERS: LT DISPOSITION & COMMUNICATION FOLLOW UP F/UP WITH MANAGER RECRUITING (REASON: POST COOL RF-LT L4-L5,L5-S1) ELECTRONICALLY SIGNED BY RADHA VALENZUELA MD, MD ON 10/25/2019 AT 10:54 AM EDT DISCLAIMER : THIS IS A VISIT SUMMARY EXTRACTED FROM THE [employer] CHART. IT IS NOT A COPY OF THE [employer] PROGRESS NOTE. MTDD
== END ==
LOC: M PAIN 10:15
PROVIDERS: ATTEND Anesthesiology
DX: M47.816 Spondylosis without myelopathy or radiculopathy, lumbar region (principal); M47.817 Spondylosis without myelopathy or radiculopathy, lumbosacral region
CPT/HCPCS: 64635; 64636; J1100; Q9967

== ENCOUNTER 2019-11-01 16:53 | Emergency (ER) | payer OTHER, MEDICAID ==
[~2019-11-01 16:53] MED LIST changes: -BUPIVACAINE HCL 0.25% 30ML VIAL As Ordered ONE; +HYDR-3490 PO; -HYDR25TAB PO; -ISOVUE-M 300 61% 15ML VIAL As Ordered ONE; -LIDOCAINE 1% SDV 30ML VIAL As Ordered ONE; +LISI10TA22 PO; -LISI10TA4 PO; -dexameTHASONE 10MG/1ML VIAL PRES.FREE (J1100 PER 1MG) As Ordered ONE; -diazePAM 5 MG TAB As Ordered ONE; -oxyCODONE 5MG TAB As Ordered ONE
[2019-11-01] MEDS ORDERED: SUCCINYLCHOLINE 100 MG/5 ML SYRINGE (J0330) ONE (16:54)
[2019-11-01] MEDS ORDERED: ETOMIDATE INJ 20MG/10ML VIAL ONE (16:54)
--- NOTE | 2019-11-01 17:26 | REP ---
Clinical: Status post intubation. Technique: Portable supine AP view of the chest. Findings: The endotracheal tube is at the faraz and requires repositioning. Alveolar and interstitial airspace disease primarily involving the right perihilar and left mid/lower lung zones suggested. No obvious effusion. No pneumothorax. Cardiac silhouette is normal. Impression: 1. Endotracheal tube at the faraz requires repositioning. 2. Multifocal infiltrates suggested. No effusion or pneumothorax. Electronically Signed by Sarbjit Parnell MD 11/01/2019 05:18 P
--- NOTE | 2019-11-01 17:28 | REP ---
Clinical: Trauma. Technique: AP view of the pelvis. Findings: Examination is limited by technique and positioning. No obvious acute fracture or dislocation of the visualized pelvic structures noted. Impression: No obvious pelvic fracture or dislocation. Portions of the left doris pelvis are excluded from the image and may warrant reevaluation if necessary. Electronically Signed by Sarbjit Parnell MD 11/01/2019 05:19 P
[2019-11-01 17:32] LABS: HEMATOCRIT 37.2 % (36.0-47.0); HEMOGLOBIN 11.5 g/dl (12.0-15.5); MEAN CORPUSCULAR HEMOGLOBIN 27.4 pg (27.0-33.0); MEAN CORPUSCULAR HGB CONC 30.9 g/dl (32.0-36.5); MEAN CORPUSCULAR VOLUME 88.6 fl (80.0-96.0); PLATELET COUNT, AUTOMATED 384 10^3/uL (150-450); WHITE BLOOD COUNT 15.7 10^3/uL (4.0-10.0)
[2019-11-01 17:36] LABS: INR 1.14; PROTHROMBIN TIME 14.3 SECONDS (11.8-14.0)
[2019-11-01 17:37] LABS: PARTIAL THROMBOPLASTIN TIME 25.2 SECONDS (25.0-38.4)
[2019-11-01] MEDS ORDERED: SUCCINYLCHOLINE INJ 200 MG/10 ML VIAL (J0330) IV STA (17:39)
[2019-11-01] MEDS ORDERED: ETOMIDATE INJ 20MG/10ML VIAL IV STA (17:39)
[2019-11-01 17:47] LABS: ALBUMIN 3.6 GM/DL (3.2-5.2); ALT/SGPT 36 U/L (12-78); AMYLASE 36 U/L (25-115); BILIRUBIN,DIRECT < 0.1 MG/DL (0.0-0.2); BILIRUBIN,TOTAL 0.2 MG/DL (0.2-1.0); BLOOD UREA NITROGEN 20 MG/DL (7-18); CALCIUM LEVEL 8.5 MG/DL (8.8-10.2); CARBON DIOXIDE LEVEL 26 MEQ/L (21-32); CHLORIDE LEVEL 107 MEQ/L (98-107); CK-MB VALUE MASS 5.9 NG/ML (<3.6); CPK CREATINE PHOSPHOKINASE 223 U/L (26-192); CREATININE FOR GFR 0.81 MG/DL (0.55-1.30); ETHYL ALCOHOL (ETHANOL) < 0.003 % (0.000-0.010); GLOMERULAR FILTRATION RATE > 60.0 (>45); GLUCOSE, FASTING 228 MG/DL (70-100); LIPASE 98 U/L (73-393); MB/CK RELATIVE INDEX 2.65 (< OR =4); POTASSIUM SERUM 3.5 MEQ/L (3.5-5.1); SODIUM LEVEL 139 MEQ/L (136-145); TROPONIN I < 0.02 NG/ML (< 0.10)
[2019-11-01 17:50] VITALS: BP 84/51
[2019-11-01 18:02] LABS: ANISOCYTOSIS 1+; ATYPICAL LYMPH 4 % (0-5); EOSINOPHILS 1 % (0-3); HYPOCHROMASIA 1+; LYMPHOCYTES 39 % (16-44); METAMYELOCYTES 1 % (0-0); MONOCYTES 2 % (0-5); MYELOCYTES 2 % (0-0); NEUTROPHILS 49 % (28-66)
[2019-11-01 18:03] LABS: OVALOCYTES 1+; PLATELET CLUMPS SMALL AMT; PLATELET ESTIMATE NORMAL (NORMAL); SPHEROCYTES 1+; TEAR DROP CELLS 1+
[2020-02-20] MEDS ORDERED: METH-1164 PO (14:57)
[2020-04-14] MEDS ORDERED: BISA5TAB72 PO (13:55)
[2020-05-30] MEDS ORDERED: METH-1164 PO (14:53)
== END 2019-11-01 17:54 | disposition short-term general hospital (02) ==
LOC: M ED 16:53
DX: S09.90XA Unspecified injury of head, initial encounter (principal); S89.92XA Unspecified injury of left lower leg, initial encounter; V49.40XA Driver injured in collision with unspecified motor vehicles in traffic accident, initial encounter; Y92.9 Unspecified place or not applicable; Y99.9 Unspecified external cause status; R41.82 Altered mental status, unspecified; E11.9 Type 2 diabetes mellitus without complications; I10 Essential (primary) hypertension; Z79.84 Long term (current) use of oral hypoglycemic drugs; Z79.82 Long term (current) use of aspirin; Z79.899 Other long term (current) drug therapy
CPT/HCPCS: 31500; 51702; 71045; 72170; 80048; 80076; 82150; 82550; 82553; 82803; 83690; 84484; 85025; 85610; 85730; 86850; 86900; 86901; 86920; 93041; 96374; 96375; 99285; G0480; J0330; P9016

== ENCOUNTER 2020-02-20 12:00 | Inpatient (IN) | payer MEDICAID, MEDICARE, OTHER ==
[~2020-02-20] VITALS: Ht 172.7 cm; Wt 123.6 kg
[~2020-02-20 12:00] MED LIST changes: -HYDR-3490 PO; +HYDR25TAB PO; -LISI10TA22 PO; +LISI10TA4 PO
[2020-02-20] MEDS ORDERED: ACETAMINOPHEN TAB 650MG DOSE (2X325MG) PO ONE (12:45)
[2020-02-20 12:59] LABS: BASO # 0.1 10^3/uL (0.0-0.2); BASO % 0.5 % (0.0-1.0); EOS # 0.3 10^3/uL (0.0-0.5); EOS % 2.4 % (0.0-3.0); HEMATOCRIT 32.7 % (36.0-47.0); HEMOGLOBIN 10.1 g/dl (12.0-15.5); LYMPH # 1.1 10^3/uL (1.5-5.0); LYMPH % 9.7 % (24.0-44.0); MEAN CORPUSCULAR HEMOGLOBIN 26.8 pg (27.0-33.0); MEAN CORPUSCULAR HGB CONC 30.9 g/dl (32.0-36.5); MEAN CORPUSCULAR VOLUME 86.7 fl (80.0-96.0); MONO # 1.6 10^3/uL (0.0-0.8); MONO % 13.5 % (0.0-5.0); NEUTROPHILS # 8.5 10^3/uL (1.5-8.5); NEUTROPHILS % 73.3 % (36.0-66.0); PLATELET COUNT, AUTOMATED 282 10^3/uL (150-450); RED BLOOD COUNT 3.77 10^6/uL (4.00-5.40); WHITE BLOOD COUNT 11.6 10^3/uL (4.0-10.0)
[2020-02-20 13:09] LABS: INR 1.16; PROTHROMBIN TIME 15.1 SECONDS (12.5-14.3)
[2020-02-20 13:10] LABS: PARTIAL THROMBOPLASTIN TIME 25.3 SECONDS (24.2-38.5)
[2020-02-20] MEDS ORDERED: CEFEPIME HCL 2 GM in D5W MINI-BAG PLUS 50 ML IV ONE (13:15)
[2020-02-20] MEDS ORDERED: NS IV ONE (13:15)
--- NOTE | 2020-02-20 13:20 | REPVR ---
PROCEDURE INFORMATION: Exam: XR Chest, 1 View Exam date and time: 02/20/2020 12:40 PM Age: 64 years old Clinical indication: Shortness of breath; Additional info: Sepsis/shock TECHNIQUE: Imaging protocol: XR of the chest Views: Frontal portable sitting upright view of the chest. COMPARISON: CR Chest, 1 view 11/01/2019 5:06 PM FINDINGS: Tubes, catheters and devices: The tracheostomy tube tip is approximately 5.5 cm above the faraz. Lungs: The pulmonary vasculature is more congested and ill-defined. Increased bibasilar pulmonary subsegmental atelectasis. Pleural space: No definite pleural effusion. No pneumothorax. Heart/Mediastinum: The heart is normal in size and contour. Mediastinum: Stable. Diaphragm: The right hemidiaphragm remains mildly elevated. Bones/joints: Bilateral thoracic spinal pedicle screw and kaylene systems. IMPRESSION: 1. Increased pulmonary vascular congestion. 2. Increased bibasilar pulmonary subsegmental atelectasis. Electronically signed by: Laci Nunes On 02/20/2020 13:20:24 PM
[2020-02-20 13:33] LABS: ALBUMIN 2.6 GM/DL (3.2-5.2); ALT/SGPT 31 U/L (12-78); AMYLASE 23 U/L (25-115); BILIRUBIN,DIRECT 0.2 MG/DL (0.0-0.2); BILIRUBIN,TOTAL 0.4 MG/DL (0.2-1.0); BLOOD UREA NITROGEN 29 MG/DL (7-18); CALCIUM LEVEL 8.3 MG/DL (8.8-10.2); CARBON DIOXIDE LEVEL 32 MEQ/L (21-32); CHLORIDE LEVEL 99 MEQ/L (98-107); CK-MB VALUE MASS < 1.0 NG/ML (<3.6); CPK CREATINE PHOSPHOKINASE 91 U/L (26-192); GLOMERULAR FILTRATION RATE > 60.0 (>45); GLUCOSE, FASTING 151 MG/DL (70-100); POTASSIUM SERUM 4.8 MEQ/L (3.5-5.1); SODIUM LEVEL 133 MEQ/L (136-145); TOTAL PROTEIN 6.5 GM/DL (6.4-8.2); TROPONIN I 0.41 NG/ML (< 0.10)
[2020-02-20 14:08] LABS: AMORPHOUS SEDIMENT SMALL (NEGATIVE); APPEARANCE, URINE CLOUDY (CLEAR); BACTERIA, URINE AUTO 2+ (NEGATIVE); BILIRUBIN, URINE AUTO 2+ (NEGATIVE); BLOOD, URINE BLOOD NEGATIVE (NEGATIVE); COLOR, URINE AMBER (YELLOW); GLUCOSE, URINE (UA) AUTO NEGATIVE (NEGATIVE); KETONE, URINE AUTO NEGATIVE (NEGATIVE); LEUKOCYTE ESTERASE, URINE AUTO 2+ (NEGATIVE); MUCUS, URINE SMALL (NEGATIVE); NITRITE, URINE AUTO NEGATIVE (NEGATIVE); PROTEIN, URINE AUTO 2+ mg/dL (NEGATIVE); RBC, URINE AUTO 42 /HPF (0-3); RENAL EPITHELIAL CELLS 5 /HPF; SPECIFIC GRAVITY URINE AUTO 1.025 (1.002-1.035); SQUAMOUS EPITHELIAL CELL UR AU 1 /HPF (0-6); WBC, URINE AUTO TNTC /HPF (0-3)
[2020-02-20] MEDS ORDERED: RA S8.6T3 PO (14:57)
[2020-02-20] MEDS ORDERED: PRED10TA2 PO (14:57)
[2020-02-20] MEDS ORDERED: NYST1POW9 TOP (14:57)
[2020-02-20] MEDS ORDERED: GUAI100S51 PO ×2 (14:57)
[2020-02-20] MEDS ORDERED: VOLT1GEL15 TOP (14:57)
[2020-02-20] MEDS ORDERED: ACET1TAB55 PO (14:57)
[2020-02-20] MEDS ORDERED: HYDR-3363 PO (14:57)
[2020-02-20] MEDS ORDERED: SUBO4MIS SL (14:57)
[2020-02-20] MEDS ORDERED: ATEN25TA PO (14:57)
[2020-02-20] MEDS ORDERED: HYDR200T3 PO (14:57)
[2020-02-20] MEDS ORDERED: PRED5TA PO (14:57)
[2020-02-20] MEDS ORDERED: IPRA0.00 INH (14:57)
[2020-02-20] MEDS ORDERED: MIRA3350 PO (14:57)
[2020-02-20] MEDS ORDERED: METH1TAB40 PO (14:57)
[2020-02-20] MEDS ORDERED: DOCU100C16 PO (14:57)
[2020-02-20] MEDS ORDERED: PROP15DR12 OU (14:57)
[2020-02-20] MEDS ORDERED: ENEMENE8 PR (14:57)
[2020-02-20] MEDS ORDERED: MOBI4TAB PO (14:57)
[2020-02-20] MEDS ORDERED: METO5TAB2 PO (14:57)
[2020-02-20] MEDS ORDERED: ISOVUE-370 76% 100ML VIAL As Ordered ONE (15:47)
--- NOTE | 2020-02-20 16:38 | REPVR ---
PROCEDURE INFORMATION: Exam: CT Angiography Chest With Contrast Exam date and time: 02/20/2020 1:52 PM Age: 64 years old Clinical indication: Fever and other: Hypoxia; Additional info: Hypoxia, fever TECHNIQUE: Imaging protocol: Computed tomographic angiography of the chest with intravenous contrast. 3D rendering (Not supervised by radiologist): MIP and/or 3D reconstructed images were created by the technologist. Radiation optimization: All CT scans at this facility use at least one of these dose optimization techniques: automated exposure control; mA and/or kV adjustment per patient size (includes targeted exams where dose is matched to clinical indication); or iterative reconstruction. Contrast material: ISOVUE 370; Contrast volume: 100 ml; Contrast route: INTRAVENOUS (IV); COMPARISON: CT Chest with contrast 05/30/2019 3:54 AM FINDINGS: Tubes, catheters and devices: The tracheostomy tube tip is in the upper thoracic trachea. Pulmonary arteries: The pulmonary vasculature is congested. Aorta: Mild aortic arch, branch, and descending thoracic aortic atherosclerotic calcification without ectasia. Lungs: Right middle lobe atelectasis. 11.7 mm centrilobular emphysematous focus right upper lobe anterior segment. Mild hazy ground-glass airspace opacities and interlobular septal thickening. Pleural space: No pneumothorax. No pleural effusion. Heart: Normal. No pericardial effusion. Lymph nodes: No enlarged lymph nodes. Bones/joints: Bilateral thoracic spinal pedicle screw and kaylene systems. Distraction of the T3-4 disc with retrolisthesis, inferior T3 anterior endplate avulsion with disc space gas, and bilateral distraction of the sacroiliac joints, T3 spinous process tip fracture, inferiorly distracted. Healed multiple bilateral rib fractures. Soft tissues: Mild right T3-4 paraspinous soft tissue swelling without soft tissue fluid collection identified. IMPRESSION: 1. No pulmonary embolism identified. 2. Right middle lobe atelectasis. 3. Pulmonary vascular congestion. 4. Mild hazy ground-glass airspace opacities and interlobular septal thickening. Possible interstitial and alveolar pulmonary edema. Superimposed pneumonitis is difficult to exclude. Clinical correlation is recommended. 5. Postoperative T3-4 distraction injury with nonspecific disc space gas. Clinical correlation (surgical history, recent?) is recommended. Additional imaging may be helpful if clinically indicated (e.g. tagged white blood cell nuclear medicine study). Electronically signed by: Laci Nunes On 02/20/2020 16:38:08 PM
--- NOTE | 2020-02-20 16:51 | REPVR ---
PROCEDURE INFORMATION: Exam: CT Abdomen And Pelvis With Contrast Exam date and time: 02/20/2020 1:52 PM Age: 64 years old Clinical indication: Fever; Additional info: Hypoxia, fever TECHNIQUE: Imaging protocol: Computed tomography of the abdomen and pelvis with intravenous contrast. Radiation optimization: All CT scans at this facility use at least one of these dose optimization techniques: automated exposure control; mA and/or kV adjustment per patient size (includes targeted exams where dose is matched to clinical indication); or iterative reconstruction. Contrast material: ISOVUE 370; Contrast volume: 100 ml; Contrast route: INTRAVENOUS (IV); COMPARISON: CT ABD/PEL W/IV CONTRAST ONLY 05/30/2019 3:54 AM FINDINGS: Liver: Normal. No mass. Gallbladder and bile ducts: The gallbladder is surgically absent, with metallic clips in the gallbladder fossa. Pancreas: TheSevere pancreatic atrophy. Spleen: Normal. No splenomegaly. Adrenals: Normal. No mass. Kidneys and ureters: 3.5 cm benign right renal simple cyst. Stomach and bowel: Mild rectal constipation. Moderate rectal wall thickening/perirectal edema. Sigmoid, descending and transverse colonic diverticula are present without evidence of diverticulitis. A small periampullary duodenal diverticulum is present. Appendix: The vermiform appendix is normal. Intraperitoneal space: Unremarkable. No free air. No significant fluid collection. Vasculature: Left pelvic phleboliths. Lymph nodes: No enlarged lymph nodes. Bladder: The urinary bladder is drained by a Wood catheter. Reproductive: Benign-appearing bilateral adnexal calcifications. Bones/joints: Diffuse osteopenia. L5-S1 spondylosis with bilateral neural foraminal stenosis. Healed injury left anterior superior iliac spine. Soft tissues: Perirectal soft tissue edema. Mild anasarca. IMPRESSION: 1. Mild rectal constipation. 2. Moderate rectal wall thickening/perirectal edema. 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 3. Prior cholecystectomy. 4. Diverticulosis. 5. Benign right renal simple cyst. 6. Please see the CT chest report of the same date for additional findings. COMMENTS: Consistent with the [place] [employer]'s Incidental Findings Committee white paper (J Am Christiano Radiol 2018): Any incidental renal lesion less than 1 cm or classified as too small to characterize, or any incidental cystic renal lesion characterized as simple-appearing, is likely benign. No follow-up imaging is recommended for these lesions per consensus recommendations based on imaging criteria. Electronically signed by: Laci Nunes On 02/20/2020 16:51:47 PM
[2020-02-20] MEDS ORDERED: MAALOX 30 ML SUSP *UDC PO PRN (17:45)
[2020-02-20] MEDS ORDERED: MOM 30ML SUSPENSION UDC PO PRN (17:45)
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
[2020-02-20] MEDS ORDERED: VANCOMYCIN HCL 1,000 MG, VIAL MATE ADAPTER 1 EACH in D5W 250 ML IV STA (17:55)
[2020-02-20] MEDS ORDERED: VANCOMYCIN HCL 1,000 MG, VIAL MATE ADAPTER 1 EACH in D5W 250 ML IV SCH (18:30)
[2020-02-20] MEDS ORDERED: VANCOMYCIN HCL 1,000 MG, VIAL MATE ADAPTER 1 EACH in D5W 250 ML IV ONE (19:00)
[2020-02-20 20:00] VITALS: BP 108/58
--- NOTE | 2020-02-20 20:32 | ECGEPIP ---
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
[2020-02-20 21:00] VITALS: BP 116/61
[2020-02-20] MEDS ORDERED: atenoloL 25 MG TAB PO SCH (21:00)
[2020-02-20] MEDS: HumaLOG INSULIN (NovoLOG) PER UNIT SC SCH (21:00)
[2020-02-20] MEDS ORDERED: SODIUM CHLORIDE 0.9% 1000ML IV ONE (21:00)
[2020-02-20 22:00] VITALS: BP 111/59
[2020-02-20] MEDS ORDERED: METOCLOPRAMIDE 5 MG TAB PO PRN (22:30)
[2020-02-20] MEDS ORDERED: MIRALAX *UNIT DOSE* 17GM PACKET PO PRN (22:30)
[2020-02-20] MEDS ORDERED: methocarbamoL 500 MG TAB PO PRN (22:30)
[2020-02-20] MEDS ORDERED: IPRATROPIUM 0.5MG/ALBUTEROL 2.5MG INH SOL UD 3ML (DUONEB) INH PRN (22:30)
[2020-02-20] MEDS ORDERED: guaiFENesin SYRUP 200 MG/10 ML UDC PO PRN (22:30)
[2020-02-20] MEDS ORDERED: GLUCAGON INJ 1MG VIAL SC PRN (23:15)
[2020-02-20] MEDS ORDERED: DEXTROSE 50% 50 ML SYRINGE IV PRN (23:15)
[2020-02-20] MEDS ORDERED: GLUCOSE 4GM CHEW TABLET PO PRN (23:15)
[2020-02-21] VITALS (10 sets, daily range): BP systolic 108–138; BP diastolic 56–80
[2020-02-21] MEDS: MELOXICAM (MOBIC) 7.5 MG TAB PO SCH ×2 (00:01→20:23)
[2020-02-21] MEDS: GABAPENTIN 300 MG CAP PO SCH ×4 (00:01→20:23)
[2020-02-21] MEDS: DULoxetine 30 MG CAP (CYMBALTA) PO SCH ×2 (00:01→20:23)
[2020-02-21] MEDS: hydrOXYzine 25 MG TAB PO PRN (00:01)
[2020-02-21] MEDS: DOCUSATE SODIUM 100 MG CAP PO SCH ×3 (00:01→20:21)
[2020-02-21] MEDS: predniSONE 10 MG TAB PO SCH ×2 (00:01→20:23)
[2020-02-21] MEDS: SENNA 8.6 MG TAB (SENOKOT) PO SCH ×2 (00:01→20:23)
[2020-02-21] MEDS: BUPRENORPHINE/NALOXONE 2-0.5MG SUBLINGUAL TABLET(SUBOXONE) SL SCH ×3 (00:32→20:23)
[2020-02-21] MEDS: ACETAMINOPHEN TAB 650MG DOSE (2X325MG) PO PRN (03:51)
[2020-02-21 04:30] LABS: HEMATOCRIT 37.1 % (36.0-47.0); HEMOGLOBIN 10.9 g/dl (12.0-15.5); MEAN CORPUSCULAR HEMOGLOBIN 26.1 pg (27.0-33.0); MEAN CORPUSCULAR HGB CONC 29.4 g/dl (32.0-36.5); MEAN CORPUSCULAR VOLUME 88.8 fl (80.0-96.0); PLATELET COUNT, AUTOMATED 326 10^3/uL (150-450); RED BLOOD COUNT 4.18 10^6/uL (4.00-5.40); WHITE BLOOD COUNT 11.9 10^3/uL (4.0-10.0)
[2020-02-21 05:07] LABS: BLOOD UREA NITROGEN 30 MG/DL (7-18); CALCIUM LEVEL 8.8 MG/DL (8.8-10.2); CARBON DIOXIDE LEVEL 34 MEQ/L (21-32); CHLORIDE LEVEL 98 MEQ/L (98-107); CREATININE FOR GFR 0.63 MG/DL (0.55-1.30); GLOMERULAR FILTRATION RATE > 60.0 (>45); GLUCOSE, FASTING 124 MG/DL (70-100); POTASSIUM SERUM 4.4 MEQ/L (3.5-5.1); SODIUM LEVEL 133 MEQ/L (136-145); TROPONIN I 0.17 NG/ML (< 0.10)
[2020-02-21] MEDS: CEFEPIME HCL 2 GM in D5W 50 ML IV SCH ×5 (05:58→22:03)
[2020-02-21] MEDS: HumaLOG INSULIN (NovoLOG) PER UNIT SC SCH ×4 (07:30→20:24)
[2020-02-21] MEDS: predniSONE 5 MG TAB PO SCH (08:16)
[2020-02-21] MEDS: HYDROXYCHLOROQUINE 200 MG TAB PO SCH (08:17)
[2020-02-21] MEDS: ENOXAPARIN 40MG/0.4ML SYRINGE (J1650 PER 10MG) SC SCH (08:18)
[2020-02-21] MEDS: VANCOMYCIN HCL 1,000 MG, VIAL MATE ADAPTER 1 EACH in D5W 250 ML IV SCH ×2 (08:19→20:24)
[2020-02-21 08:46] LABS: NT-PRO BNP 10828 PG/ML (<125)
[2020-02-21] MEDS: ASPIRIN 81 MG ENTERIC TAB PO SCH (09:42)
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
[2020-02-21] MEDS ORDERED: BISACODYL 10 MG SUPP PR PRN (17:15)
[2020-02-21] MEDS: FUROSEMIDE 40MG/4ML VIAL (J1940) IV SCH (17:39)
[2020-02-21] MEDS: ATORVASTATIN 20 MG TAB PO SCH (20:21)
[2020-02-21] MEDS: ATENOLOL 12.5MG PER 1/2 TABLET PO SCH (20:22)
--- NOTE | 2020-02-21 20:23 | ECGEPIP ---
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
--- NOTE | 2020-02-21 20:24 | ECGEPIP ---
[facility] Test Date: 2020-02-21 Pat Name: HANNA GARVIN Department: Room: [place] [address] Gender: Female Actimize Architect: LISSET : 1955 Requested By: FISH MOSHER Order Number: [id number] Reading MD: Serge Huber Measurements Intervals [place] Rate: 102 P: 23 MA: 157 QRS: -9 QRSD: 109 T: -3 QT: 331 QTc: 432 Interpretive Statements Sinus tachycardia Incomplete right bundle branch block Nonspecific T wave abnormality No significant change when compared to prior tracing of 02/20/2020 Electronically Signed on 02-21-2020 20:24:11 EDT by Serge Huber
[2020-02-21] MEDS ORDERED: atenoloL 25 MG TAB PO ONE (21:00)
[2020-02-22] VITALS (8 sets, daily range): BP systolic 109–121; BP diastolic 58–73
[2020-02-22] MEDS: ACETAMINOPHEN TAB 650MG DOSE (2X325MG) PO PRN ×3 (02:08→20:53)
[2020-02-22 05:00] LABS: HEMATOCRIT 32.2 % (36.0-47.0); HEMOGLOBIN 9.9 g/dl (12.0-15.5); MEAN CORPUSCULAR HEMOGLOBIN 26.8 pg (27.0-33.0); MEAN CORPUSCULAR HGB CONC 30.7 g/dl (32.0-36.5); PLATELET COUNT, AUTOMATED 335 10^3/uL (150-450); WHITE BLOOD COUNT 9.8 10^3/uL (4.0-10.0)
[2020-02-22 05:17] LABS: ALBUMIN 2.3 GM/DL (3.2-5.2); ALT/SGPT 24 U/L (12-78); BILIRUBIN,TOTAL 0.2 MG/DL (0.2-1.0); BLOOD UREA NITROGEN 21 MG/DL (7-18); CALCIUM LEVEL 8.4 MG/DL (8.8-10.2); CARBON DIOXIDE LEVEL 32 MEQ/L (21-32); CHLORIDE LEVEL 98 MEQ/L (98-107); CREATININE FOR GFR 0.58 MG/DL (0.55-1.30); GLOMERULAR FILTRATION RATE > 60.0 (>45); GLUCOSE, FASTING 161 MG/DL (70-100); SODIUM LEVEL 135 MEQ/L (136-145); TOTAL PROTEIN 6.6 GM/DL (6.4-8.2)
[2020-02-22] MEDS: CEFEPIME HCL 2 GM in D5W 50 ML IV SCH ×2 (06:05→15:01)
[2020-02-22] MEDS: HumaLOG INSULIN (NovoLOG) PER UNIT SC SCH ×4 (08:06→21:00)
[2020-02-22] MEDS: ENOXAPARIN 40MG/0.4ML SYRINGE (J1650 PER 10MG) SC SCH (08:06)
[2020-02-22] MEDS: VANCOMYCIN HCL 1,000 MG, VIAL MATE ADAPTER 1 EACH in D5W 250 ML IV SCH ×2 (08:06→20:56)
[2020-02-22] MEDS: FUROSEMIDE 40MG/4ML VIAL (J1940) IV SCH ×2 (08:07→16:01)
[2020-02-22] MEDS: ATENOLOL 12.5MG PER 1/2 TABLET PO SCH ×2 (08:08→20:56)
[2020-02-22] MEDS: predniSONE 5 MG TAB PO SCH (08:09)
[2020-02-22] MEDS: DOCUSATE SODIUM 100 MG CAP PO SCH ×2 (08:09→20:53)
[2020-02-22] MEDS: HYDROXYCHLOROQUINE 200 MG TAB PO SCH (08:09)
[2020-02-22] MEDS: ASPIRIN 81 MG ENTERIC TAB PO SCH (08:09)
[2020-02-22] MEDS: BUPRENORPHINE/NALOXONE 2-0.5MG SUBLINGUAL TABLET(SUBOXONE) SL SCH ×2 (08:09→20:55)
[2020-02-22] MEDS: GABAPENTIN 300 MG CAP PO SCH ×3 (08:09→20:53)
[2020-02-22] MEDS ORDERED: LevoFLOXacin IV 500 MG in IV 1 EA IV SCH (15:00)
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
[2020-02-22] MEDS: SENNA 8.6 MG TAB (SENOKOT) PO SCH (20:53)
[2020-02-22] MEDS: hydrOXYzine 25 MG TAB PO PRN (20:55)
[2020-02-22] MEDS: MELOXICAM (MOBIC) 7.5 MG TAB PO SCH (20:55)
[2020-02-22] MEDS: DULoxetine 30 MG CAP (CYMBALTA) PO SCH (20:55)
[2020-02-22] MEDS: ATORVASTATIN 20 MG TAB PO SCH (20:56)
[2020-02-22] MEDS: predniSONE 10 MG TAB PO SCH (20:57)
[2020-02-23] MEDS ORDERED: LevoFLOXacin 500 MG TABLET PO SCH (06:00)
--- NOTE | 2020-02-23 07:24 | ECHO ---
DATE OF PROCEDURE: 02/21/2020 Gender: Female Height: 163 cm Weight: 129 kg REFERRING PHYSICIAN: Dr. Haque INDICATION: Sepsis, elevated troponin MEASUREMENTS: IV 1.5 LV4.0 LVPW 1.5 LA 3.8 Aorta 3.6 IVC 2.0 Mitral E wave velocity 93. E prime septal 4.5 E prime lateral 3.8 FINDINGS: The study is of relatively acceptable quality especially considering the patient's body habitus. The patient is in sinus tachycardia with heart rate a little over 100 beats per minute. Left ventricle is normal size. Moderate left ventricular hypertrophy is present. Normal LV systolic function is appreciated based on somewhat limited views. Estimated ejection fraction (EF) around 65%. Right ventricle there is at least mildly dilated but normally contractile. Both atria appear grossly normal. There are minimal degenerative abnormalities of aortic and mitral valves, but mobility is preserved. Tricuspid valve appears normal. Pulmonic valve was not well seen. No pericardial effusion is noted. Inferior vena cava is in upper limits of normal size. Aortic root is normal. Aortic arch and abdominal aorta were not well seen. Doppler interrogation of aortic valve reveals no stenosis or insufficiency. There is trace mitral and trace tricuspid insufficiency. Calculated pulmonary artery pressure is in the 30s corresponding to borderline pulmonary hypertension. Evaluation of diastolic function is inconclusive because there is a fusion of A and E wave on mitral inflow due to underlying tachycardia; but based on very low tissue Doppler velocities of mitral annulus, it is likely that the patient has advanced diastolic dysfunction. CONCLUSIONS: 1. Study is of acceptable technical quality, underlying sinus tachycardia. 2. Normal LV size with moderate left ventricular hypertrophy (LVH), preserved LV systolic function, at least grade 2 diastolic dysfunction. 3. No hemodynamically significant valvular disease. 4. Borderline elevated central venous pressure and likely pulmonary hypertension. [facility]
[2020-02-23 08:17] LABS: HEMATOCRIT 33.7 % (36.0-47.0); HEMOGLOBIN 10.3 g/dl (12.0-15.5); MEAN CORPUSCULAR HEMOGLOBIN 26.3 pg (27.0-33.0); MEAN CORPUSCULAR HGB CONC 30.6 g/dl (32.0-36.5); MEAN CORPUSCULAR VOLUME 86.2 fl (80.0-96.0); PLATELET COUNT, AUTOMATED 379 10^3/uL (150-450); RED BLOOD COUNT 3.91 10^6/uL (4.00-5.40)
[2020-02-23 08:45] LABS: ALBUMIN 2.3 GM/DL (3.2-5.2); ALT/SGPT 22 U/L (12-78); BILIRUBIN,TOTAL 0.3 MG/DL (0.2-1.0); BLOOD UREA NITROGEN 20 MG/DL (7-18); CALCIUM LEVEL 8.9 MG/DL (8.8-10.2); CARBON DIOXIDE LEVEL 35 MEQ/L (21-32); CHLORIDE LEVEL 96 MEQ/L (98-107); CREATININE FOR GFR 0.56 MG/DL (0.55-1.30); GLOMERULAR FILTRATION RATE > 60.0 (>45); GLUCOSE, FASTING 108 MG/DL (70-100); POTASSIUM SERUM 4.2 MEQ/L (3.5-5.1); SODIUM LEVEL 137 MEQ/L (136-145); TOTAL PROTEIN 6.3 GM/DL (6.4-8.2)
[2020-02-23] MEDS: ENOXAPARIN 40MG/0.4ML SYRINGE (J1650 PER 10MG) SC SCH (09:14)
[2020-02-23] MEDS: ASPIRIN 81 MG ENTERIC TAB PO SCH (09:14)
[2020-02-23] MEDS: DOCUSATE SODIUM 100 MG CAP PO SCH ×2 (09:14→20:38)
[2020-02-23] MEDS: BUPRENORPHINE/NALOXONE 2-0.5MG SUBLINGUAL TABLET(SUBOXONE) SL SCH ×2 (09:14→20:42)
[2020-02-23] MEDS: GABAPENTIN 300 MG CAP PO SCH ×3 (09:14→20:38)
[2020-02-23] MEDS: HumaLOG INSULIN (NovoLOG) PER UNIT SC SCH ×4 (09:14→20:30)
[2020-02-23] MEDS: predniSONE 5 MG TAB PO SCH (09:14)
[2020-02-23] MEDS: HYDROXYCHLOROQUINE 200 MG TAB PO SCH (09:15)
[2020-02-23] MEDS: FUROSEMIDE 40MG/4ML VIAL (J1940) IV SCH ×2 (09:15→17:59)
[2020-02-23] MEDS: ATENOLOL 12.5MG PER 1/2 TABLET PO SCH ×2 (09:17→20:39)
[2020-02-23 14:00] VITALS: BP 112/70
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
[2020-02-23] MEDS ORDERED: NIX CREME RINSE 1% 60 ML KIT TOP ONE (18:00)
[2020-02-23] MEDS: predniSONE 10 MG TAB PO SCH (20:38)
[2020-02-23] MEDS: SENNA 8.6 MG TAB (SENOKOT) PO SCH (20:38)
[2020-02-23] MEDS: DULoxetine 30 MG CAP (CYMBALTA) PO SCH (20:38)
[2020-02-23] MEDS: ATORVASTATIN 20 MG TAB PO SCH (20:38)
[2020-02-23] MEDS: MELOXICAM (MOBIC) 7.5 MG TAB PO SCH (20:39)
[2020-02-23 22:00] VITALS: BP 103/55
[2020-02-24 06:00] VITALS: BP 113/75
[2020-02-24 06:13] LABS: HEMATOCRIT 33.7 % (36.0-47.0); HEMOGLOBIN 10.4 g/dl (12.0-15.5); MEAN CORPUSCULAR HEMOGLOBIN 26.6 pg (27.0-33.0); MEAN CORPUSCULAR HGB CONC 30.9 g/dl (32.0-36.5); MEAN CORPUSCULAR VOLUME 86.2 fl (80.0-96.0); PLATELET COUNT, AUTOMATED 365 10^3/uL (150-450); RED BLOOD COUNT 3.91 10^6/uL (4.00-5.40); WHITE BLOOD COUNT 11.1 10^3/uL (4.0-10.0)
[2020-02-24 06:45] LABS: ALBUMIN 2.3 GM/DL (3.2-5.2); ALT/SGPT 23 U/L (12-78); BILIRUBIN,TOTAL 0.2 MG/DL (0.2-1.0); BLOOD UREA NITROGEN 18 MG/DL (7-18); CALCIUM LEVEL 8.6 MG/DL (8.8-10.2); CARBON DIOXIDE LEVEL 34 MEQ/L (21-32); CHLORIDE LEVEL 94 MEQ/L (98-107); CREATININE FOR GFR 0.55 MG/DL (0.55-1.30); GLOMERULAR FILTRATION RATE > 60.0 (>45); GLUCOSE, FASTING 114 MG/DL (70-100); NT-PRO BNP 3234 PG/ML (<125); POTASSIUM SERUM 4.1 MEQ/L (3.5-5.1); SODIUM LEVEL 136 MEQ/L (136-145); TOTAL PROTEIN 6.2 GM/DL (6.4-8.2)
[2020-02-24] MEDS: HumaLOG INSULIN (NovoLOG) PER UNIT SC SCH ×4 (08:53→20:15)
[2020-02-24] MEDS: FUROSEMIDE 100MG/10ML VIAL (J1940) IV SCH (08:54)
[2020-02-24] MEDS: ASPIRIN 81 MG ENTERIC TAB PO SCH (08:55)
[2020-02-24] MEDS: HYDROXYCHLOROQUINE 200 MG TAB PO SCH (08:55)
[2020-02-24] MEDS: BACTRIM 160MG/800MG DS TAB PO SCH (08:56)
[2020-02-24] MEDS: BUPRENORPHINE/NALOXONE 2-0.5MG SUBLINGUAL TABLET(SUBOXONE) SL SCH ×2 (08:56→20:31)
[2020-02-24] MEDS: GABAPENTIN 300 MG CAP PO SCH ×3 (08:56→20:32)
[2020-02-24] MEDS: DOCUSATE SODIUM 100 MG CAP PO SCH ×2 (08:56→20:31)
[2020-02-24] MEDS: ATENOLOL 12.5MG PER 1/2 TABLET PO SCH ×2 (08:56→20:15)
[2020-02-24] MEDS: predniSONE 5 MG TAB PO SCH (08:56)
[2020-02-24] MEDS: ENOXAPARIN 40MG/0.4ML SYRINGE (J1650 PER 10MG) SC SCH (08:57)
[2020-02-24] MEDS: ACETAMINOPHEN TAB 650MG DOSE (2X325MG) PO PRN (10:55)
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
[2020-02-24 14:00] VITALS: BP 106/53
[2020-02-24] MEDS: ATORVASTATIN 20 MG TAB PO SCH (20:31)
[2020-02-24] MEDS: SENNA 8.6 MG TAB (SENOKOT) PO SCH (20:31)
[2020-02-24] MEDS: predniSONE 10 MG TAB PO SCH (20:31)
[2020-02-24] MEDS: MELOXICAM (MOBIC) 7.5 MG TAB PO SCH (20:31)
[2020-02-24] MEDS: DULoxetine 30 MG CAP (CYMBALTA) PO SCH (20:32)
[2020-02-24 22:00] VITALS: BP 104/52
[2020-02-24] MEDS: RAMELTEON 8 MG TAB (ROZEREM) PO PRN (22:11)
[2020-02-25 06:00] VITALS: BP 102/55
[2020-02-25 06:41] LABS: HEMATOCRIT 33.3 % (36.0-47.0); HEMOGLOBIN 10.3 g/dl (12.0-15.5); MEAN CORPUSCULAR HEMOGLOBIN 26.7 pg (27.0-33.0); MEAN CORPUSCULAR HGB CONC 30.9 g/dl (32.0-36.5); MEAN CORPUSCULAR VOLUME 86.3 fl (80.0-96.0); PLATELET COUNT, AUTOMATED 349 10^3/uL (150-450); RED BLOOD COUNT 3.86 10^6/uL (4.00-5.40); WHITE BLOOD COUNT 10.5 10^3/uL (4.0-10.0)
[2020-02-25 07:01] LABS: ALBUMIN 2.3 GM/DL (3.2-5.2); ALT/SGPT 22 U/L (12-78); BILIRUBIN,TOTAL 0.2 MG/DL (0.2-1.0); BLOOD UREA NITROGEN 22 MG/DL (7-18); CALCIUM LEVEL 8.8 MG/DL (8.8-10.2); CARBON DIOXIDE LEVEL 35 MEQ/L (21-32); CHLORIDE LEVEL 94 MEQ/L (98-107); CREATININE FOR GFR 0.54 MG/DL (0.55-1.30); GLOMERULAR FILTRATION RATE > 60.0 (>45); GLUCOSE, FASTING 111 MG/DL (70-100); POTASSIUM SERUM 4.3 MEQ/L (3.5-5.1); SODIUM LEVEL 136 MEQ/L (136-145); TOTAL PROTEIN 6.3 GM/DL (6.4-8.2)
[2020-02-25 08:44] VITALS: BP 105/57
[2020-02-25] MEDS: ATENOLOL 12.5MG PER 1/2 TABLET PO SCH ×2 (08:49→21:16)
[2020-02-25] MEDS ORDERED: FUROSEMIDE 40 MG TAB PO SCH (09:00)
[2020-02-25] MEDS: FUROSEMIDE 100MG/10ML VIAL (J1940) IV SCH (09:00)
[2020-02-25] MEDS: HumaLOG INSULIN (NovoLOG) PER UNIT SC SCH ×4 (09:05→21:00)
[2020-02-25] MEDS: BUPRENORPHINE/NALOXONE 2-0.5MG SUBLINGUAL TABLET(SUBOXONE) SL SCH ×2 (09:06→21:12)
[2020-02-25] MEDS: ASPIRIN 81 MG ENTERIC TAB PO SCH (09:06)
[2020-02-25] MEDS: ENOXAPARIN 40MG/0.4ML SYRINGE (J1650 PER 10MG) SC SCH (09:06)
[2020-02-25] MEDS: predniSONE 5 MG TAB PO SCH (09:06)
[2020-02-25] MEDS: GABAPENTIN 300 MG CAP PO SCH ×3 (09:06→21:11)
[2020-02-25] MEDS: BACTRIM 160MG/800MG DS TAB PO SCH (09:06)
[2020-02-25] MEDS: DOCUSATE SODIUM 100 MG CAP PO SCH ×2 (09:07→21:11)
[2020-02-25] MEDS: HYDROXYCHLOROQUINE 200 MG TAB PO SCH (09:27)
[2020-02-25] MEDS: ACETAMINOPHEN TAB 650MG DOSE (2X325MG) PO PRN (10:41)
[2020-02-25 14:00] VITALS: BP 101/56
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
[2020-02-25] MEDS: predniSONE 10 MG TAB PO SCH (21:12)
[2020-02-25] MEDS: SENNA 8.6 MG TAB (SENOKOT) PO SCH (21:12)
[2020-02-25] MEDS: ATORVASTATIN 20 MG TAB PO SCH (21:12)
[2020-02-25] MEDS: RAMELTEON 8 MG TAB (ROZEREM) PO PRN (21:12)
[2020-02-25] MEDS: DULoxetine 30 MG CAP (CYMBALTA) PO SCH (21:13)
[2020-02-25] MEDS: MELOXICAM (MOBIC) 7.5 MG TAB PO SCH (21:13)
[2020-02-25 22:00] VITALS: BP 127/65
[2020-02-26] MEDS: ACETAMINOPHEN TAB 650MG DOSE (2X325MG) PO PRN (05:31)
[2020-02-26 06:00] VITALS: BP 103/61
[2020-02-26 06:45] LABS: ALBUMIN 2.3 GM/DL (3.2-5.2); ALT/SGPT 21 U/L (12-78); BILIRUBIN,TOTAL 0.4 MG/DL (0.2-1.0); BLOOD UREA NITROGEN 20 MG/DL (7-18); CALCIUM LEVEL 8.8 MG/DL (8.8-10.2); CARBON DIOXIDE LEVEL 36 MEQ/L (21-32); CHLORIDE LEVEL 93 MEQ/L (98-107); CREATININE FOR GFR 0.49 MG/DL (0.55-1.30); GLOMERULAR FILTRATION RATE > 60.0 (>45); GLUCOSE, FASTING 122 MG/DL (70-100); POTASSIUM SERUM 4.5 MEQ/L (3.5-5.1); SODIUM LEVEL 133 MEQ/L (136-145); TOTAL PROTEIN 6.3 GM/DL (6.4-8.2)
[2020-02-26] MEDS ORDERED: FUROSEMIDE 40 MG TAB PO SCH (09:00)
[2020-02-26] MEDS: ATENOLOL 12.5MG PER 1/2 TABLET PO SCH ×2 (09:00→21:00)
--- NOTE | 2020-02-26 09:25 | REPVR ---
PROCEDURE INFORMATION: Exam: XR Chest, 2 Views Exam date and time: 02/26/2020 9:17 AM Age: 64 years old Clinical indication: Other: Worsening 02 saturation; Additional info: Worsening o2 saturation TECHNIQUE: Imaging protocol: XR of the chest Views: 2 views. COMPARISON: CR PORTABLE CHEST X-RAY 02/20/2020 12:53 PM FINDINGS: Hypoinflation with bilateral predominantly basilar streaky bilateral airspace opacities are not substantially changed. No pleural effusion or pneumothorax. Cardiac silhouette remains borderline enlarged. IMPRESSION: No significant change in basilar predominant bilateral airspace opacities, in the setting of hypoinflation likely reflecting atelectasis although underlying infection is possible. Electronically signed by: Yoni Bai On 02/26/2020 09:25:07 AM
[2020-02-26] MEDS: ENOXAPARIN 40MG/0.4ML SYRINGE (J1650 PER 10MG) SC SCH (09:47)
[2020-02-26] MEDS: HumaLOG INSULIN (NovoLOG) PER UNIT SC SCH ×4 (09:48→21:00)
[2020-02-26] MEDS: BACTRIM 160MG/800MG DS TAB PO SCH (09:50)
[2020-02-26] MEDS: GABAPENTIN 300 MG CAP PO SCH ×3 (09:50→21:21)
[2020-02-26] MEDS: HYDROXYCHLOROQUINE 200 MG TAB PO SCH (09:50)
[2020-02-26] MEDS: DOCUSATE SODIUM 100 MG CAP PO SCH ×2 (09:51→21:20)
[2020-02-26] MEDS: predniSONE 5 MG TAB PO SCH (09:51)
[2020-02-26] MEDS: BUPRENORPHINE/NALOXONE 2-0.5MG SUBLINGUAL TABLET(SUBOXONE) SL SCH ×2 (09:51→21:20)
[2020-02-26] MEDS: ASPIRIN 81 MG ENTERIC TAB PO SCH (09:51)
[2020-02-26] MEDS: NYSTATIN 100,000 UNITS/GM TOPICAL PWD 15 GM TOP PRN (11:46)
[2020-02-26 14:00] VITALS: BP 107/63
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
[2020-02-26] MEDS: DULoxetine 30 MG CAP (CYMBALTA) PO SCH (21:20)
[2020-02-26] MEDS: predniSONE 10 MG TAB PO SCH (21:21)
[2020-02-26] MEDS: SENNA 8.6 MG TAB (SENOKOT) PO SCH (21:21)
[2020-02-26] MEDS: ATORVASTATIN 20 MG TAB PO SCH (21:21)
[2020-02-26] MEDS: MELOXICAM (MOBIC) 7.5 MG TAB PO SCH (21:21)
[2020-02-26 22:00] VITALS: BP 112/64
[2020-02-27 06:00] VITALS: BP 108/64
[2020-02-27 06:05] LABS: HEMATOCRIT 31.5 % (36.0-47.0); HEMOGLOBIN 9.9 g/dl (12.0-15.5); MEAN CORPUSCULAR HEMOGLOBIN 26.4 pg (27.0-33.0); MEAN CORPUSCULAR HGB CONC 31.4 g/dl (32.0-36.5); PLATELET COUNT, AUTOMATED 414 10^3/uL (150-450); RED BLOOD COUNT 3.75 10^6/uL (4.00-5.40); WHITE BLOOD COUNT 9.7 10^3/uL (4.0-10.0)
[2020-02-27 06:35] LABS: ALBUMIN 2.2 GM/DL (3.2-5.2); ALT/SGPT 20 U/L (12-78); BILIRUBIN,TOTAL 0.1 MG/DL (0.2-1.0); BLOOD UREA NITROGEN 16 MG/DL (7-18); CALCIUM LEVEL 8.8 MG/DL (8.8-10.2); CARBON DIOXIDE LEVEL 35 MEQ/L (21-32); CHLORIDE LEVEL 95 MEQ/L (98-107); CREATININE FOR GFR 0.52 MG/DL (0.55-1.30); GLOMERULAR FILTRATION RATE > 60.0 (>45); GLUCOSE, FASTING 127 MG/DL (70-100); POTASSIUM SERUM 4.7 MEQ/L (3.5-5.1); SODIUM LEVEL 136 MEQ/L (136-145); TOTAL PROTEIN 6.3 GM/DL (6.4-8.2)
[2020-02-27] MEDS: HumaLOG INSULIN (NovoLOG) PER UNIT SC SCH ×4 (07:41→19:51)
[2020-02-27 08:15] VITALS: BP 113/68
[2020-02-27] MEDS: ASPIRIN 81 MG ENTERIC TAB PO SCH (08:36)
[2020-02-27] MEDS: ATENOLOL 12.5MG PER 1/2 TABLET PO SCH ×2 (08:36→20:21)
[2020-02-27] MEDS: HYDROXYCHLOROQUINE 200 MG TAB PO SCH (08:37)
[2020-02-27] MEDS: FUROSEMIDE 40 MG TAB PO SCH (08:37)
[2020-02-27] MEDS: DOCUSATE SODIUM 100 MG CAP PO SCH ×2 (08:37→20:22)
[2020-02-27] MEDS: GABAPENTIN 300 MG CAP PO SCH ×3 (08:38→20:22)
[2020-02-27] MEDS: BACTRIM 160MG/800MG DS TAB PO SCH (08:38)
[2020-02-27] MEDS: predniSONE 5 MG TAB PO SCH (08:38)
[2020-02-27] MEDS: ENOXAPARIN 40MG/0.4ML SYRINGE (J1650 PER 10MG) SC SCH (08:39)
[2020-02-27] MEDS: BUPRENORPHINE/NALOXONE 2-0.5MG SUBLINGUAL TABLET(SUBOXONE) SL SCH ×2 (09:10→20:22)
[2020-02-27] MEDS: NYSTATIN 100,000 UNITS/GM TOPICAL PWD 15 GM TOP PRN (09:50)
[2020-02-27 14:00] VITALS: BP 106/59
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
[2020-02-27] MEDS: DULoxetine 30 MG CAP (CYMBALTA) PO SCH (20:22)
[2020-02-27] MEDS: ATORVASTATIN 20 MG TAB PO SCH (20:22)
[2020-02-27] MEDS: SENNA 8.6 MG TAB (SENOKOT) PO SCH (20:22)
[2020-02-27] MEDS: MELOXICAM (MOBIC) 7.5 MG TAB PO SCH (20:22)
[2020-02-27] MEDS: predniSONE 10 MG TAB PO SCH (20:22)
[2020-02-27 22:00] VITALS: BP 106/59
[2020-02-28 06:13] LABS: HEMATOCRIT 31.9 % (36.0-47.0); HEMOGLOBIN 10.1 g/dl (12.0-15.5); MEAN CORPUSCULAR HEMOGLOBIN 26.5 pg (27.0-33.0); MEAN CORPUSCULAR HGB CONC 31.7 g/dl (32.0-36.5); MEAN CORPUSCULAR VOLUME 83.7 fl (80.0-96.0); PLATELET COUNT, AUTOMATED 456 10^3/uL (150-450); RED BLOOD COUNT 3.81 10^6/uL (4.00-5.40); WHITE BLOOD COUNT 9.6 10^3/uL (4.0-10.0)
[2020-02-28 06:37] LABS: ALBUMIN 2.3 GM/DL (3.2-5.2); ALT/SGPT 19 U/L (12-78); BILIRUBIN,TOTAL 0.2 MG/DL (0.2-1.0); BLOOD UREA NITROGEN 15 MG/DL (7-18); CALCIUM LEVEL 9.1 MG/DL (8.8-10.2); CARBON DIOXIDE LEVEL 36 MEQ/L (21-32); CHLORIDE LEVEL 95 MEQ/L (98-107); CREATININE FOR GFR 0.48 MG/DL (0.55-1.30); GLOMERULAR FILTRATION RATE > 60.0 (>45); GLUCOSE, FASTING 132 MG/DL (70-100); POTASSIUM SERUM 4.9 MEQ/L (3.5-5.1); SODIUM LEVEL 136 MEQ/L (136-145); TOTAL PROTEIN 6.4 GM/DL (6.4-8.2)
[2020-02-28] MEDS: ENOXAPARIN 40MG/0.4ML SYRINGE (J1650 PER 10MG) SC SCH (07:59)
[2020-02-28] MEDS: GABAPENTIN 300 MG CAP PO SCH ×3 (08:00→21:33)
[2020-02-28] MEDS: ASPIRIN 81 MG ENTERIC TAB PO SCH (08:00)
[2020-02-28] MEDS: BACTRIM 160MG/800MG DS TAB PO SCH (08:00)
[2020-02-28] MEDS: BUPRENORPHINE/NALOXONE 2-0.5MG SUBLINGUAL TABLET(SUBOXONE) SL SCH ×2 (08:00→21:33)
[2020-02-28] MEDS: DOCUSATE SODIUM 100 MG CAP PO SCH ×2 (08:00→21:33)
[2020-02-28] MEDS: HYDROXYCHLOROQUINE 200 MG TAB PO SCH (08:02)
[2020-02-28] MEDS: ATENOLOL 12.5MG PER 1/2 TABLET PO SCH ×2 (08:02→21:33)
[2020-02-28] MEDS: FUROSEMIDE 40 MG TAB PO SCH (08:02)
[2020-02-28] MEDS: predniSONE 5 MG TAB PO SCH (08:02)
[2020-02-28] MEDS: HumaLOG INSULIN (NovoLOG) PER UNIT SC SCH ×4 (08:03→20:53)
[2020-02-28] MEDS: ACETAMINOPHEN TAB 650MG DOSE (2X325MG) PO PRN (10:03)
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
[2020-02-28 14:00] VITALS: BP 119/60
[2020-02-28] MEDS: DULoxetine 30 MG CAP (CYMBALTA) PO SCH (21:32)
[2020-02-28] MEDS: MELOXICAM (MOBIC) 7.5 MG TAB PO SCH (21:33)
[2020-02-28] MEDS: ATORVASTATIN 20 MG TAB PO SCH (21:33)
[2020-02-28] MEDS: SENNA 8.6 MG TAB (SENOKOT) PO SCH (21:33)
[2020-02-28] MEDS: predniSONE 10 MG TAB PO SCH (21:33)
[2020-02-28 22:00] VITALS: BP 119/59
[2020-02-29] MEDS: ACETAMINOPHEN TAB 650MG DOSE (2X325MG) PO PRN ×2 (02:26→14:45)
[2020-02-29 06:00] VITALS: BP 118/60
[2020-02-29 06:19] LABS: HEMATOCRIT 31.5 % (36.0-47.0); HEMOGLOBIN 9.9 g/dl (12.0-15.5); MEAN CORPUSCULAR HEMOGLOBIN 26.4 pg (27.0-33.0); MEAN CORPUSCULAR HGB CONC 31.4 g/dl (32.0-36.5); PLATELET COUNT, AUTOMATED 469 10^3/uL (150-450); RED BLOOD COUNT 3.75 10^6/uL (4.00-5.40); WHITE BLOOD COUNT 12.2 10^3/uL (4.0-10.0)
[2020-02-29 06:51] LABS: ALBUMIN 2.4 GM/DL (3.2-5.2); ALT/SGPT 17 U/L (12-78); BILIRUBIN,TOTAL 0.2 MG/DL (0.2-1.0); BLOOD UREA NITROGEN 15 MG/DL (7-18); CARBON DIOXIDE LEVEL 36 MEQ/L (21-32); CHLORIDE LEVEL 95 MEQ/L (98-107); CREATININE FOR GFR 0.51 MG/DL (0.55-1.30); GLOMERULAR FILTRATION RATE > 60.0 (>45); GLUCOSE, FASTING 126 MG/DL (70-100); POTASSIUM SERUM 4.9 MEQ/L (3.5-5.1); SODIUM LEVEL 135 MEQ/L (136-145); TOTAL PROTEIN 6.5 GM/DL (6.4-8.2)
[2020-02-29] MEDS: HumaLOG INSULIN (NovoLOG) PER UNIT SC SCH ×4 (08:33→20:50)
[2020-02-29] MEDS: DOCUSATE SODIUM 100 MG CAP PO SCH ×2 (08:35→20:48)
[2020-02-29] MEDS: GABAPENTIN 300 MG CAP PO SCH ×3 (08:35→20:48)
[2020-02-29] MEDS: HYDROXYCHLOROQUINE 200 MG TAB PO SCH (08:35)
[2020-02-29] MEDS: ENOXAPARIN 40MG/0.4ML SYRINGE (J1650 PER 10MG) SC SCH (08:35)
[2020-02-29] MEDS: ATENOLOL 12.5MG PER 1/2 TABLET PO SCH ×2 (08:36→20:49)
[2020-02-29] MEDS: predniSONE 5 MG TAB PO SCH (08:36)
[2020-02-29] MEDS: ASPIRIN 81 MG ENTERIC TAB PO SCH (08:36)
[2020-02-29] MEDS: FUROSEMIDE 40 MG TAB PO SCH (08:36)
[2020-02-29] MEDS: BUPRENORPHINE/NALOXONE 2-0.5MG SUBLINGUAL TABLET(SUBOXONE) SL SCH ×2 (08:47→20:49)
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
[2020-02-29 14:00] VITALS: BP 125/63
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
[2020-02-29] MEDS: predniSONE 10 MG TAB PO SCH (20:48)
[2020-02-29] MEDS: MELOXICAM (MOBIC) 7.5 MG TAB PO SCH (20:48)
[2020-02-29] MEDS: SENNA 8.6 MG TAB (SENOKOT) PO SCH (20:48)
[2020-02-29] MEDS: DULoxetine 30 MG CAP (CYMBALTA) PO SCH (20:48)
[2020-02-29 20:49] VITALS: BP 121/60
[2020-02-29] MEDS: ATORVASTATIN 20 MG TAB PO SCH (20:49)
[2020-02-29 22:00] VITALS: BP 121/60
[2020-03-01 06:00] VITALS: BP 124/62
[2020-03-01] MEDS: GABAPENTIN 300 MG CAP PO SCH (08:10)
[2020-03-01] MEDS: DOCUSATE SODIUM 100 MG CAP PO SCH (08:11)
[2020-03-01] MEDS: HumaLOG INSULIN (NovoLOG) PER UNIT SC SCH ×2 (08:11→12:25)
[2020-03-01] MEDS: predniSONE 5 MG TAB PO SCH (08:11)
[2020-03-01] MEDS: ASPIRIN 81 MG ENTERIC TAB PO SCH (08:11)
[2020-03-01] MEDS: BUPRENORPHINE/NALOXONE 2-0.5MG SUBLINGUAL TABLET(SUBOXONE) SL SCH (08:11)
[2020-03-01] MEDS: HYDROXYCHLOROQUINE 200 MG TAB PO SCH (08:11)
[2020-03-01] MEDS: FUROSEMIDE 40 MG TAB PO SCH (08:12)
[2020-03-01] MEDS: ATENOLOL 12.5MG PER 1/2 TABLET PO SCH (08:25)
[2020-03-01] MEDS: ENOXAPARIN 40MG/0.4ML SYRINGE (J1650 PER 10MG) SC SCH (08:28)
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
[2020-03-01] MEDS: ACETAMINOPHEN TAB 650MG DOSE (2X325MG) PO PRN (12:25)
[2020-03-01 14:00] VITALS: BP 123/64
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
[2020-03-01] MEDS ORDERED: ATOR1TAB21 PO (14:12)
[2020-03-01] MEDS ORDERED: NYST10006 TOP (14:12)
[2020-03-01] MEDS ORDERED: ASPI81TAEC PO (14:12)
--- NOTE | 2020-03-05 19:35 | ECGEPIP ---
[facility] - ED Test Date: 2020-02-20 Pat Name: HANNA GARVIN Department: Room: [place] [address] Gender: Female Roof Bolter: KENY : 1955 Requested By: EMERGENCY ROOM Order Number: [id number] Reading MD: Zandra Greenwood Measurements Intervals [place] Rate: 80 P: 25 [place]: 150 QRS: -9 QRSD: 105 T: -7 QT: 383 QTc: 444 Interpretive Statements SINUS RHYTHM LOW QRS VOLTAGE IN PRECORDIAL LEADS MODERATE T-WAVE ABNORMALITY, CONSIDER ANTERIOR ISCHEMIA CW 02/20/[address] T WAVE CHANGES Electronically Signed on 03-05-2020 19:35:28 EDT by Zandra Greenwood
== END 2020-03-01 17:02 | disposition home health service (06) | DRG 466 ==
LOC: EDBD 12:00 → M ED 12:00 → M ED INP 17:43 → EEVIPCON 17:43 → M ICU 19:48 → M MSPAV 02-22 22:20
PROVIDERS: ADMIT Family Medicine; ATTEND Internal Medicine
DX: T83.511A Infection and inflammatory reaction due to indwelling urethral catheter, initial encounter (principal); R65.20 Severe sepsis without septic shock; J96.01 Acute respiratory failure with hypoxia; J15.212 Pneumonia due to Methicillin resistant Staphylococcus aureus; I50.33 Acute on chronic diastolic (congestive) heart failure; I24.8 Other forms of acute ischemic heart disease; F11.20 Opioid dependence, uncomplicated; I11.0 Hypertensive heart disease with heart failure; Z79.899 Other long term (current) drug therapy; G82.20 Paraplegia, unspecified; A41.9 Sepsis, unspecified organism; Z68.41 Body mass index [BMI] 40.0-44.9, adult; K94.23 Gastrostomy malfunction; E66.01 Morbid (severe) obesity due to excess calories; L03.311 Cellulitis of abdominal wall; M48.061 Spinal stenosis, lumbar region without neurogenic claudication; M51.26 Other intervertebral disc displacement, lumbar region; E11.9 Type 2 diabetes mellitus without complications; K59.00 Constipation, unspecified; I25.10 Atherosclerotic heart disease of native coronary artery without angina pectoris; B96.20 Unspecified Escherichia coli [E. coli] as the cause of diseases classified elsewhere; B85.0 Pediculosis due to Pediculus humanus capitis; Z20.828 Contact with and (suspected) exposure to other viral communicable diseases; Z79.52 Long term (current) use of systemic steroids

== ENCOUNTER 2020-03-20 10:46 | Inpatient (IN) | payer OTHER ==
[~2020-03-20] VITALS: Ht 172.7 cm; Wt 131.2 kg
[~2020-03-20 10:46] MED LIST changes: +ACET1TAB55 PO; +ASPI81TAEC PO; +ATEN25TA PO; +ATOR1TAB21 PO; +DOCU100C16 PO; +ENEMENE8 PR; +GUAI100S51 PO; +HYDR-3363 PO; +HYDR200T3 PO; +IPRA0.00 INH; +METH1TAB40 PO; +METO5TAB2 PO; +MIRA3350 PO; +MOBI4TAB PO; +NYST10006 TOP; +NYST1POW9 TOP; +PRED10TA2 PO; +PRED5TA PO; +PROP15DR12 OU; +RA S8.6T3 PO; +SUBO4MIS SL; +VOLT1GEL15 TOP
[2020-03-20] MEDS ORDERED: ALBUTEROL SULFATE 2.5 MG/0.5 ML INH NEB SOLN INH ONE (11:00)
[2020-03-20] MEDS ORDERED: IPRATROPIUM 0.5MG/ALBUTEROL 2.5MG INH SOL UD 3ML (DUONEB) NEB ONE (11:00)
[2020-03-20 11:37] LABS: BASO # 0.1 10^3/uL (0.0-0.2); BASO % 0.6 % (0.0-1.0); EOS # 0.3 10^3/uL (0.0-0.5); EOS % 1.8 % (0.0-3.0); HEMOGLOBIN 10.3 g/dl (12.0-15.5); LYMPH # 1.3 10^3/uL (1.5-5.0); MEAN CORPUSCULAR HEMOGLOBIN 25.8 pg (27.0-33.0); MEAN CORPUSCULAR HGB CONC 30.3 g/dl (32.0-36.5); MONO # 1.4 10^3/uL (0.0-0.8); MONO % 9.2 % (0.0-5.0); NEUTROPHILS # 12.5 10^3/uL (1.5-8.5); NEUTROPHILS % 79.9 % (36.0-66.0); PLATELET COUNT, AUTOMATED 361 10^3/uL (150-450); WHITE BLOOD COUNT 15.6 10^3/uL (4.0-10.0)
--- NOTE | 2020-03-20 11:48 | REPVR ---
PROCEDURE INFORMATION: Exam: XR Chest, 1 View Exam date and time: 03/20/2020 11:26 AM Age: 64 years old Clinical indication: Cough and fever; Additional info: Trach and cough TECHNIQUE: Imaging protocol: XR of the chest Views: 1 view. COMPARISON: CR Chest, 2 view PA, Lat 02/26/2020 9:09 AM FINDINGS: Tubes, catheters and devices: A tracheostomy tube is in place, poorly characterized on this exam. There are several EKG leads overlying the chest. Lungs: There is right basilar atelectasis. Pleural space: Unremarkable. No pleural effusion. No pneumothorax. Heart/Mediastinum: There is a poor inspiration which exaggerates the markings at both lung bases and exaggerates the cardiac size. There is cardiomegaly. There is prominence of the pulmonary vascular markings. These findings may represent congestive heart failure. Vasculature: There are calcified atherosclerotic changes of the aorta. Bones/joints: Patient is status post surgical fusion of the upper thoracic spine. There is moderate osteopenia. IMPRESSION: There is cardiomegaly. There is prominence of the pulmonary vascular markings. These findings may represent congestive heart failure. Electronically signed by: Everton Briones On 03/20/2020 11:48:21 AM
[2020-03-20] MEDS ORDERED: FUROSEMIDE 40MG/4ML VIAL (J1940) IV ONE (12:45)
[2020-03-20] MEDS ORDERED: ISOVUE-370 76% 100ML VIAL As Ordered ONE (13:48)
[2020-03-20] MEDS ORDERED: ATOR1TAB21 PO (14:05)
[2020-03-20] MEDS ORDERED: ASPI81TA26 PO (14:05)
--- NOTE | 2020-03-20 14:44 | REPVR ---
PROCEDURE INFORMATION: Exam: CT Angiography Chest With Contrast Exam date and time: 03/20/2020 2:12 PM Age: 64 years old Clinical indication: Shortness of breath. TECHNIQUE: Imaging protocol: Computed tomographic angiography of the chest with intravenous contrast. 3D rendering (Not supervised by radiologist): MIP and/or 3D reconstructed images were created by the technologist. Radiation optimization: All CT scans at this facility use at least one of these dose optimization techniques: automated exposure control; mA and/or kV adjustment per patient size (includes targeted exams where dose is matched to clinical indication); or iterative reconstruction. Contrast material: ISOVUE 370; Contrast volume: 75 ml; Contrast route: INTRAVENOUS (IV); COMPARISON: CT ANGIO CHEST 02/20/2020 3:46 PM FINDINGS: Tubes, catheters and devices: A tracheostomy tube is in place. Pulmonary arteries: Examination is extremely limited due to patient motion artifact. Within the limitations of this exam, no large central pulmonary artery emboli are identified. Aorta: Unremarkable. No aortic aneurysm. No aortic dissection. Lungs: There are some increased markings at the right lung base. This could represent an early infiltrate. Pleural space: Unremarkable. No pneumothorax. No pleural effusion. Heart: There is cardiomegaly. There is prominence of the pulmonary vascular markings. These findings may represent congestive heart failure. Lymph nodes: Unremarkable. No enlarged lymph nodes. Spleen: There is splenomegaly. Bones/joints: Patient is status post upper thoracic fusion. Soft tissues: Unremarkable. IMPRESSION: 1. Examination is extremely limited due to patient motion artifact. Within the limitations of this exam, no large central pulmonary artery emboli are identified. Segmental and/or subsegmental pulmonary artery emboli could easily be obscured on this study. If clinically indicated, repeat imaging when patient is better sedated could be performed. 2. There are some increased markings at the right lung base. This could represent an early infiltrate. Followup imaging is recommended. 3. There is cardiomegaly. There is prominence of the pulmonary vascular markings. These findings may represent congestive heart failure. 4. There is splenomegaly. Electronically signed by: Everton Briones On 03/20/2020 14:43:59 PM
[2020-03-20] MEDS ORDERED: guaiFENesin SYRUP 200 MG/10 ML UDC PO PRN (14:45)
[2020-03-20] MEDS ORDERED: POLYVINYL ALCOHOL OPHTH SOLN 15 ML(LIQUITEARS) OU PRN (14:45)
[2020-03-20] MEDS ORDERED: GLUCOSE 4GM CHEW TABLET PO PRN (14:45)
[2020-03-20] MEDS ORDERED: hydrOXYzine 25 MG TAB PO PRN (14:45)
[2020-03-20] MEDS ORDERED: GLUCAGON INJ 1MG VIAL SC PRN (14:45)
[2020-03-20] MEDS ORDERED: NYSTATIN 100,000 UNITS/GM TOPICAL PWD 15 GM TOP PRN (14:45)
[2020-03-20] MEDS ORDERED: methocarbamoL 500 MG TAB PO PRN (14:45)
[2020-03-20] MEDS ORDERED: IPRATROPIUM 0.5MG/ALBUTEROL 2.5MG INH SOL UD 3ML (DUONEB) INH PRN (14:45)
[2020-03-20] MEDS ORDERED: DEXTROSE 50% 50 ML SYRINGE IV PRN (14:45)
[2020-03-20] MEDS ORDERED: MIRALAX *UNIT DOSE* 17GM PACKET PO PRN (14:45)
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
[2020-03-20] MEDS: LevoFLOXacin IV 750 MG in IV 1 EA IV SCH (15:21)
[2020-03-20] MEDS: GABAPENTIN 300 MG CAP PO SCH ×2 (16:00→20:44)
[2020-03-20] MEDS: HumaLOG INSULIN (NovoLOG) PER UNIT SC SCH ×2 (17:30→21:00)
[2020-03-20 18:30] VITALS: BP 120/81
[2020-03-20] MEDS: predniSONE 10 MG TAB PO SCH (20:44)
[2020-03-20] MEDS: DOCUSATE SODIUM 100 MG CAP PO SCH (20:44)
[2020-03-20] MEDS: SENNA 8.6 MG TAB (SENOKOT) PO SCH (20:44)
[2020-03-20] MEDS: MELOXICAM (MOBIC) 7.5 MG TAB PO SCH (20:44)
[2020-03-20] MEDS: ATORVASTATIN 20 MG TAB PO SCH (20:44)
[2020-03-20] MEDS: DULoxetine 30 MG CAP (CYMBALTA) PO SCH (20:45)
[2020-03-20] MEDS: atenoloL 25 MG TAB PO SCH (20:47)
[2020-03-20] MEDS: BUPRENORPHINE/NALOXONE 2-0.5MG SUBLINGUAL TABLET(SUBOXONE) SL SCH (20:50)
[2020-03-20 22:00] VITALS: BP 150/85
[2020-03-20] MEDS: RAMELTEON 8 MG TAB (ROZEREM) PO PRN (23:03)
--- NOTE | 2020-03-21 05:42 | ECGEPIP ---
[facility] - ED Test Date: 2020-03-20 Pat Name: HANNA GARVIN Department: Room: - Gender: Female Meal Packer: mynor : 1955 Requested By: Zandra Greenwood Order Number: [id number] Reading MD: Aries Baumann Measurements Intervals [place] Rate: 90 P: 24 NE: 156 QRS: -6 QRSD: 95 T: 13 QT: 357 QTc: 439 Interpretive Statements SINUS RHYTHM MINIMAL VOLTAGE CRITERIA FOR LVH, CONSIDER NORMAL VARIANT POSSIBLE INCOMPLETE RIGHT BUNDLE BRANCH BLOCK NSTTW ABNORMALITY(S) SIMILAR TO 02/21/20 Electronically Signed on 03-21-2020 5:42:16 EDT by Aries Baumann
[2020-03-21 06:14] LABS: HEMOGLOBIN 9.7 g/dl (12.0-15.5); MEAN CORPUSCULAR HEMOGLOBIN 25.6 pg (27.0-33.0); MEAN CORPUSCULAR HGB CONC 30.3 g/dl (32.0-36.5); MEAN CORPUSCULAR VOLUME 84.4 fl (80.0-96.0); PLATELET COUNT, AUTOMATED 358 10^3/uL (150-450); RED BLOOD COUNT 3.79 10^6/uL (4.00-5.40); WHITE BLOOD COUNT 12.9 10^3/uL (4.0-10.0)
[2020-03-21 06:38] LABS: ALBUMIN 2.2 GM/DL (3.2-5.2); ALT/SGPT 10 U/L (12-78); BILIRUBIN,TOTAL 0.4 MG/DL (0.2-1.0); BLOOD UREA NITROGEN 11 MG/DL (7-18); CALCIUM LEVEL 8.4 MG/DL (8.8-10.2); CARBON DIOXIDE LEVEL 34 MEQ/L (21-32); CHLORIDE LEVEL 98 MEQ/L (98-107); CREATININE FOR GFR 0.42 MG/DL (0.55-1.30); GLOMERULAR FILTRATION RATE > 60.0 (>45); GLUCOSE, FASTING 106 MG/DL (70-100); POTASSIUM SERUM 3.8 MEQ/L (3.5-5.1); SODIUM LEVEL 138 MEQ/L (136-145); TOTAL PROTEIN 6.5 GM/DL (6.4-8.2)
[2020-03-21] MEDS: HumaLOG INSULIN (NovoLOG) PER UNIT SC SCH ×4 (08:30→21:00)
[2020-03-21] MEDS: GABAPENTIN 300 MG CAP PO SCH ×3 (08:34→21:37)
[2020-03-21] MEDS: ASPIRIN 81 MG ENTERIC TAB PO SCH (08:34)
[2020-03-21] MEDS: predniSONE 5 MG TAB PO SCH (08:34)
[2020-03-21] MEDS: DOCUSATE SODIUM 100 MG CAP PO SCH ×2 (08:34→21:38)
[2020-03-21] MEDS: HYDROXYCHLOROQUINE 200 MG TAB PO SCH (08:34)
[2020-03-21] MEDS: BUPRENORPHINE/NALOXONE 2-0.5MG SUBLINGUAL TABLET(SUBOXONE) SL SCH ×2 (08:34→21:47)
[2020-03-21] MEDS: atenoloL 25 MG TAB PO SCH ×2 (08:38→21:39)
[2020-03-21] MEDS: ENOXAPARIN 40MG/0.4ML SYRINGE (J1650 PER 10MG) SC SCH (08:38)
[2020-03-21] MEDS ORDERED: FLUBLOK(EGG FREE)(QUAD)INFLUENZA VACC 0.5ML SYRINGE 18YRS & OLDER IM ONE (09:00)
[2020-03-21 13:57] VITALS: BP 127/77
[2020-03-21] MEDS: LevoFLOXacin IV 750 MG in IV 1 EA IV SCH (15:53)
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
[2020-03-21] MEDS: MELOXICAM (MOBIC) 7.5 MG TAB PO SCH (21:38)
[2020-03-21] MEDS: SENNA 8.6 MG TAB (SENOKOT) PO SCH (21:38)
[2020-03-21] MEDS: ATORVASTATIN 20 MG TAB PO SCH (21:38)
[2020-03-21] MEDS: predniSONE 10 MG TAB PO SCH (21:38)
[2020-03-21] MEDS: DULoxetine 30 MG CAP (CYMBALTA) PO SCH (21:38)
[2020-03-21] MEDS: RAMELTEON 8 MG TAB (ROZEREM) PO PRN (21:47)
[2020-03-21 22:00] VITALS: BP 129/75
[2020-03-22 06:00] VITALS: BP 129/73
[2020-03-22 06:00] LABS: HEMATOCRIT 31.3 % (36.0-47.0); HEMOGLOBIN 9.7 g/dl (12.0-15.5); MEAN CORPUSCULAR HEMOGLOBIN 25.8 pg (27.0-33.0); MEAN CORPUSCULAR VOLUME 83.2 fl (80.0-96.0); PLATELET COUNT, AUTOMATED 372 10^3/uL (150-450); RED BLOOD COUNT 3.76 10^6/uL (4.00-5.40); WHITE BLOOD COUNT 13.4 10^3/uL (4.0-10.0)
[2020-03-22 06:25] LABS: ALBUMIN 2.3 GM/DL (3.2-5.2); ALT/SGPT 9 U/L (12-78); BILIRUBIN,TOTAL 0.4 MG/DL (0.2-1.0); BLOOD UREA NITROGEN 12 MG/DL (7-18); CALCIUM LEVEL 8.6 MG/DL (8.8-10.2); CARBON DIOXIDE LEVEL 34 MEQ/L (21-32); CHLORIDE LEVEL 98 MEQ/L (98-107); GLOMERULAR FILTRATION RATE > 60.0 (>45); GLUCOSE, FASTING 115 MG/DL (70-100); POTASSIUM SERUM 4.1 MEQ/L (3.5-5.1); SODIUM LEVEL 137 MEQ/L (136-145); TOTAL PROTEIN 6.6 GM/DL (6.4-8.2)
[2020-03-22] MEDS: HYDROXYCHLOROQUINE 200 MG TAB PO SCH (09:30)
[2020-03-22] MEDS: ASPIRIN 81 MG ENTERIC TAB PO SCH (09:30)
[2020-03-22] MEDS: DOCUSATE SODIUM 100 MG CAP PO SCH ×2 (09:30→21:29)
[2020-03-22] MEDS: GABAPENTIN 300 MG CAP PO SCH ×3 (09:30→21:29)
[2020-03-22] MEDS: atenoloL 25 MG TAB PO SCH ×2 (09:30→21:30)
[2020-03-22] MEDS: predniSONE 5 MG TAB PO SCH (09:31)
[2020-03-22] MEDS: HumaLOG INSULIN (NovoLOG) PER UNIT SC SCH ×4 (09:31→21:00)
[2020-03-22] MEDS: ENOXAPARIN 40MG/0.4ML SYRINGE (J1650 PER 10MG) SC SCH (09:32)
[2020-03-22] MEDS: BUPRENORPHINE/NALOXONE 2-0.5MG SUBLINGUAL TABLET(SUBOXONE) SL SCH ×2 (09:34→21:30)
[2020-03-22 14:46] VITALS: BP_SYST 100; BP_SYST 102; BP_DIAS 48
[2020-03-22] MEDS: LevoFLOXacin IV 750 MG in IV 1 EA IV SCH (16:07)
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
[2020-03-22] MEDS: ATORVASTATIN 20 MG TAB PO SCH (21:29)
[2020-03-22] MEDS: SENNA 8.6 MG TAB (SENOKOT) PO SCH (21:29)
[2020-03-22] MEDS: MELOXICAM (MOBIC) 7.5 MG TAB PO SCH (21:29)
[2020-03-22] MEDS: DULoxetine 30 MG CAP (CYMBALTA) PO SCH (21:29)
[2020-03-22] MEDS: predniSONE 10 MG TAB PO SCH (21:29)
[2020-03-22] MEDS: BACTRIM 160MG/800MG DS TAB PO SCH (21:30)
[2020-03-22] MEDS: RAMELTEON 8 MG TAB (ROZEREM) PO PRN (21:33)
[2020-03-22 22:00] VITALS: BP 148/80
[2020-03-23 06:00] VITALS: BP 128/74
[2020-03-23 06:12] LABS: HEMATOCRIT 30.8 % (36.0-47.0); HEMOGLOBIN 9.4 g/dl (12.0-15.5); MEAN CORPUSCULAR HEMOGLOBIN 25.7 pg (27.0-33.0); MEAN CORPUSCULAR HGB CONC 30.5 g/dl (32.0-36.5); MEAN CORPUSCULAR VOLUME 84.2 fl (80.0-96.0); PLATELET COUNT, AUTOMATED 356 10^3/uL (150-450); RED BLOOD COUNT 3.66 10^6/uL (4.00-5.40); WHITE BLOOD COUNT 15.2 10^3/uL (4.0-10.0)
[2020-03-23 06:36] LABS: ALBUMIN 2.3 GM/DL (3.2-5.2); ALT/SGPT 10 U/L (12-78); BILIRUBIN,TOTAL 0.3 MG/DL (0.2-1.0); BLOOD UREA NITROGEN 15 MG/DL (7-18); CALCIUM LEVEL 8.5 MG/DL (8.8-10.2); CARBON DIOXIDE LEVEL 33 MEQ/L (21-32); CHLORIDE LEVEL 97 MEQ/L (98-107); CREATININE FOR GFR 0.49 MG/DL (0.55-1.30); GLOMERULAR FILTRATION RATE > 60.0 (>45); GLUCOSE, FASTING 125 MG/DL (70-100); POTASSIUM SERUM 4.1 MEQ/L (3.5-5.1); SODIUM LEVEL 136 MEQ/L (136-145); TOTAL PROTEIN 6.8 GM/DL (6.4-8.2)
[2020-03-23] MEDS: DOCUSATE SODIUM 100 MG CAP PO SCH ×2 (09:35→20:45)
[2020-03-23] MEDS: predniSONE 5 MG TAB PO SCH (09:35)
[2020-03-23] MEDS: GABAPENTIN 300 MG CAP PO SCH ×3 (09:35→20:44)
[2020-03-23] MEDS: HYDROXYCHLOROQUINE 200 MG TAB PO SCH (09:35)
[2020-03-23] MEDS: ASPIRIN 81 MG ENTERIC TAB PO SCH (09:35)
[2020-03-23] MEDS: HumaLOG INSULIN (NovoLOG) PER UNIT SC SCH ×4 (09:35→21:00)
[2020-03-23] MEDS: BUPRENORPHINE/NALOXONE 2-0.5MG SUBLINGUAL TABLET(SUBOXONE) SL SCH ×2 (09:35→20:44)
[2020-03-23] MEDS: atenoloL 25 MG TAB PO SCH ×2 (09:36→20:53)
[2020-03-23] MEDS: BACTRIM 160MG/800MG DS TAB PO SCH ×2 (09:36→20:45)
[2020-03-23] MEDS: ENOXAPARIN 40MG/0.4ML SYRINGE (J1650 PER 10MG) SC SCH (09:37)
[2020-03-23 10:19] LABS: NT-PRO BNP 224 PG/ML (<125)
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
[2020-03-23] MEDS: ACETAMINOPHEN TAB 650MG DOSE (2X325MG) PO PRN (17:33)
[2020-03-23] MEDS: predniSONE 10 MG TAB PO SCH (20:44)
[2020-03-23] MEDS: DULoxetine 30 MG CAP (CYMBALTA) PO SCH (20:45)
[2020-03-23] MEDS: MELOXICAM (MOBIC) 7.5 MG TAB PO SCH (20:45)
[2020-03-23] MEDS: SENNA 8.6 MG TAB (SENOKOT) PO SCH (20:45)
[2020-03-23] MEDS: ATORVASTATIN 20 MG TAB PO SCH (20:45)
[2020-03-23 22:00] VITALS: BP 111/64
[2020-03-24 06:00] VITALS: BP 110/62
[2020-03-24 06:56] LABS: HEMATOCRIT 35.2 % (36.0-47.0); HEMOGLOBIN 10.5 g/dl (12.0-15.5); MEAN CORPUSCULAR HEMOGLOBIN 25.2 pg (27.0-33.0); MEAN CORPUSCULAR HGB CONC 29.8 g/dl (32.0-36.5); MEAN CORPUSCULAR VOLUME 84.4 fl (80.0-96.0); PLATELET COUNT, AUTOMATED 388 10^3/uL (150-450); RED BLOOD COUNT 4.17 10^6/uL (4.00-5.40); WHITE BLOOD COUNT 15.8 10^3/uL (4.0-10.0)
[2020-03-24 06:59] LABS: BLOOD UREA NITROGEN 21 MG/DL (7-18); CARBON DIOXIDE LEVEL 28 MEQ/L (21-32); CHLORIDE LEVEL 98 MEQ/L (98-107); CREATININE FOR GFR 0.71 MG/DL (0.55-1.30); GLOMERULAR FILTRATION RATE > 60.0 (>45); GLUCOSE, FASTING 112 MG/DL (70-100); POTASSIUM SERUM 4.4 MEQ/L (3.5-5.1); SODIUM LEVEL 135 MEQ/L (136-145)
[2020-03-24 07:00] LABS: ALBUMIN 2.4 GM/DL (3.2-5.2); ALT/SGPT 9 U/L (12-78); BILIRUBIN,TOTAL 0.3 MG/DL (0.2-1.0); CALCIUM LEVEL 8.3 MG/DL (8.8-10.2)
[2020-03-24] MEDS: GABAPENTIN 300 MG CAP PO SCH ×3 (08:47→20:36)
[2020-03-24] MEDS: ASPIRIN 81 MG ENTERIC TAB PO SCH (08:48)
[2020-03-24] MEDS: predniSONE 5 MG TAB PO SCH (08:48)
[2020-03-24] MEDS: DOCUSATE SODIUM 100 MG CAP PO SCH ×2 (08:48→20:36)
[2020-03-24] MEDS: HYDROXYCHLOROQUINE 200 MG TAB PO SCH (08:48)
[2020-03-24] MEDS: BUPRENORPHINE/NALOXONE 2-0.5MG SUBLINGUAL TABLET(SUBOXONE) SL SCH ×2 (08:48→20:36)
[2020-03-24] MEDS: atenoloL 25 MG TAB PO SCH ×2 (08:49→20:42)
[2020-03-24] MEDS: BACTRIM 160MG/800MG DS TAB PO SCH ×2 (08:49→20:37)
[2020-03-24] MEDS: HumaLOG INSULIN (NovoLOG) PER UNIT SC SCH ×4 (08:49→21:00)
[2020-03-24] MEDS: ENOXAPARIN 40MG/0.4ML SYRINGE (J1650 PER 10MG) SC SCH (08:50)
[2020-03-24] MEDS: ACETAMINOPHEN TAB 650MG DOSE (2X325MG) PO PRN ×2 (09:52→20:35)
[2020-03-24] MEDS ORDERED: LIDOCAINE W/EPINEPHRINE 1% 20ML VIAL SC ONE (11:00)
[2020-03-24 14:00] VITALS: BP 106/59
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
[2020-03-24] MEDS: SENNA 8.6 MG TAB (SENOKOT) PO SCH (20:36)
[2020-03-24] MEDS: predniSONE 10 MG TAB PO SCH (20:36)
[2020-03-24] MEDS: DULoxetine 30 MG CAP (CYMBALTA) PO SCH (20:36)
[2020-03-24] MEDS: ATORVASTATIN 20 MG TAB PO SCH (20:37)
[2020-03-24] MEDS: MELOXICAM (MOBIC) 7.5 MG TAB PO SCH (20:37)
[2020-03-24] MEDS: RAMELTEON 8 MG TAB (ROZEREM) PO PRN (20:45)
[2020-03-24 22:00] VITALS: BP 130/77
[2020-03-25 06:00] VITALS: BP 110/75
[2020-03-25 06:18] LABS: HEMATOCRIT 30.5 % (36.0-47.0); HEMOGLOBIN 9.5 g/dl (12.0-15.5); MEAN CORPUSCULAR HEMOGLOBIN 25.9 pg (27.0-33.0); MEAN CORPUSCULAR HGB CONC 31.1 g/dl (32.0-36.5); MEAN CORPUSCULAR VOLUME 83.1 fl (80.0-96.0); PLATELET COUNT, AUTOMATED 416 10^3/uL (150-450); RED BLOOD COUNT 3.67 10^6/uL (4.00-5.40); WHITE BLOOD COUNT 17.4 10^3/uL (4.0-10.0)
[2020-03-25 06:46] LABS: ALBUMIN 2.4 GM/DL (3.2-5.2); ALT/SGPT 9 U/L (12-78); BILIRUBIN,TOTAL 0.3 MG/DL (0.2-1.0); BLOOD UREA NITROGEN 22 MG/DL (7-18); CALCIUM LEVEL 8.7 MG/DL (8.8-10.2); CARBON DIOXIDE LEVEL 35 MEQ/L (21-32); CHLORIDE LEVEL 97 MEQ/L (98-107); CREATININE FOR GFR 0.69 MG/DL (0.55-1.30); GLOMERULAR FILTRATION RATE > 60.0 (>45); GLUCOSE, FASTING 120 MG/DL (70-100); POTASSIUM SERUM 5.1 MEQ/L (3.5-5.1); SODIUM LEVEL 135 MEQ/L (136-145); TOTAL PROTEIN 6.7 GM/DL (6.4-8.2)
[2020-03-25] MEDS: HumaLOG INSULIN (NovoLOG) PER UNIT SC SCH ×5 (09:41→21:00)
[2020-03-25] MEDS: ASPIRIN 81 MG ENTERIC TAB PO SCH (09:41)
[2020-03-25] MEDS: BUPRENORPHINE/NALOXONE 2-0.5MG SUBLINGUAL TABLET(SUBOXONE) SL SCH ×2 (09:41→21:15)
[2020-03-25] MEDS: GABAPENTIN 300 MG CAP PO SCH ×3 (09:41→20:56)
[2020-03-25] MEDS: DOCUSATE SODIUM 100 MG CAP PO SCH ×2 (09:42→20:58)
[2020-03-25] MEDS: atenoloL 25 MG TAB PO SCH ×2 (09:42→21:00)
[2020-03-25] MEDS: predniSONE 5 MG TAB PO SCH (09:42)
[2020-03-25] MEDS: VANCOMYCIN HCL 1,000 MG, VIAL MATE ADAPTER 1 EACH in D5W 250 ML IV SCH ×2 (09:43→20:56)
[2020-03-25] MEDS: ENOXAPARIN 40MG/0.4ML SYRINGE (J1650 PER 10MG) SC SCH (09:43)
[2020-03-25] MEDS: HYDROXYCHLOROQUINE 200 MG TAB PO SCH (09:55)
[2020-03-25] MEDS ORDERED: VANCOMYCIN HCL 1,000 MG, VIAL MATE ADAPTER 1 EACH in D5W 250 ML IV ONE (11:00)
[2020-03-25 14:00] VITALS: BP 100/54
[2020-03-25] MEDS: ACETAMINOPHEN TAB 650MG DOSE (2X325MG) PO PRN ×2 (15:21→22:50)
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
[2020-03-25] MEDS: DULoxetine 30 MG CAP (CYMBALTA) PO SCH (20:56)
[2020-03-25] MEDS: RAMELTEON 8 MG TAB (ROZEREM) PO PRN (20:56)
[2020-03-25] MEDS: SENNA 8.6 MG TAB (SENOKOT) PO SCH (20:57)
[2020-03-25] MEDS: predniSONE 10 MG TAB PO SCH (20:57)
[2020-03-25] MEDS: ATORVASTATIN 20 MG TAB PO SCH (20:57)
[2020-03-25] MEDS: MELOXICAM (MOBIC) 7.5 MG TAB PO SCH (21:15)
[2020-03-25 22:00] VITALS: BP 101/55
[2020-03-26 06:00] VITALS: BP 123/66
[2020-03-26 06:23] LABS: HEMATOCRIT 29.4 % (36.0-47.0); HEMOGLOBIN 8.8 g/dl (12.0-15.5); MEAN CORPUSCULAR HEMOGLOBIN 25.1 pg (27.0-33.0); MEAN CORPUSCULAR HGB CONC 29.9 g/dl (32.0-36.5); PLATELET COUNT, AUTOMATED 407 10^3/uL (150-450); WHITE BLOOD COUNT 14.3 10^3/uL (4.0-10.0)
[2020-03-26 06:44] LABS: ALBUMIN 2.3 GM/DL (3.2-5.2); ALT/SGPT 10 U/L (12-78); BILIRUBIN,TOTAL 0.2 MG/DL (0.2-1.0); BLOOD UREA NITROGEN 21 MG/DL (7-18); CALCIUM LEVEL 8.5 MG/DL (8.8-10.2); CARBON DIOXIDE LEVEL 32 MEQ/L (21-32); CHLORIDE LEVEL 98 MEQ/L (98-107); CREATININE FOR GFR 0.66 MG/DL (0.55-1.30); GLOMERULAR FILTRATION RATE > 60.0 (>45); GLUCOSE, FASTING 164 MG/DL (70-100); POTASSIUM SERUM 4.3 MEQ/L (3.5-5.1); SODIUM LEVEL 135 MEQ/L (136-145); TOTAL PROTEIN 6.9 GM/DL (6.4-8.2)
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
[2020-03-26] MEDS: HumaLOG INSULIN (NovoLOG) PER UNIT SC SCH ×4 (09:27→21:00)
[2020-03-26] MEDS: GABAPENTIN 300 MG CAP PO SCH ×3 (09:27→21:17)
[2020-03-26] MEDS: ENOXAPARIN 40MG/0.4ML SYRINGE (J1650 PER 10MG) SC SCH (09:27)
[2020-03-26] MEDS: DOCUSATE SODIUM 100 MG CAP PO SCH ×2 (09:30→21:18)
[2020-03-26] MEDS: predniSONE 5 MG TAB PO SCH (09:30)
[2020-03-26] MEDS: ASPIRIN 81 MG ENTERIC TAB PO SCH (09:30)
[2020-03-26] MEDS: HYDROXYCHLOROQUINE 200 MG TAB PO SCH (09:30)
[2020-03-26] MEDS: atenoloL 25 MG TAB PO SCH ×2 (09:30→21:28)
[2020-03-26] MEDS: VANCOMYCIN HCL 1,000 MG, VIAL MATE ADAPTER 1 EACH in D5W 250 ML IV SCH ×2 (09:31→21:16)
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
[2020-03-26] MEDS: BUPRENORPHINE/NALOXONE 2-0.5MG SUBLINGUAL TABLET(SUBOXONE) SL SCH ×2 (09:34→21:16)
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
[2020-03-26] MEDS: ACETAMINOPHEN TAB 650MG DOSE (2X325MG) PO PRN (16:43)
[2020-03-26] MEDS: MELOXICAM (MOBIC) 7.5 MG TAB PO SCH (21:00)
[2020-03-26] MEDS: DULoxetine 30 MG CAP (CYMBALTA) PO SCH (21:17)
[2020-03-26] MEDS: ATORVASTATIN 20 MG TAB PO SCH (21:18)
[2020-03-26] MEDS: predniSONE 10 MG TAB PO SCH (21:18)
[2020-03-26] MEDS: SENNA 8.6 MG TAB (SENOKOT) PO SCH (21:18)
[2020-03-26 22:00] VITALS: BP 115/58
[2020-03-26] MEDS: RAMELTEON 8 MG TAB (ROZEREM) PO PRN (22:42)
[2020-03-27 06:00] VITALS: BP 134/64
[2020-03-27] MEDS: VANCOMYCIN HCL 1,000 MG, VIAL MATE ADAPTER 1 EACH in D5W 250 ML IV SCH ×2 (09:03→20:23)
[2020-03-27] MEDS: BUPRENORPHINE/NALOXONE 2-0.5MG SUBLINGUAL TABLET(SUBOXONE) SL SCH ×2 (09:03→20:17)
[2020-03-27] MEDS: GABAPENTIN 300 MG CAP PO SCH ×3 (09:03→20:16)
[2020-03-27] MEDS: predniSONE 5 MG TAB PO SCH (09:04)
[2020-03-27] MEDS: HYDROXYCHLOROQUINE 200 MG TAB PO SCH (09:04)
[2020-03-27] MEDS: DOCUSATE SODIUM 100 MG CAP PO SCH ×2 (09:04→20:17)
[2020-03-27] MEDS: ENOXAPARIN 40MG/0.4ML SYRINGE (J1650 PER 10MG) SC SCH (09:04)
[2020-03-27] MEDS: ASPIRIN 81 MG ENTERIC TAB PO SCH (09:04)
[2020-03-27] MEDS: HumaLOG INSULIN (NovoLOG) PER UNIT SC SCH ×4 (09:05→20:18)
[2020-03-27] MEDS: atenoloL 25 MG TAB PO SCH ×2 (09:25→20:27)
[2020-03-27 10:03] LABS: BASO # 0.1 10^3/uL (0.0-0.2); EOS # 0.3 10^3/uL (0.0-0.5); EOS % 2.5 % (0.0-3.0); HEMATOCRIT 31.8 % (36.0-47.0); HEMOGLOBIN 9.6 g/dl (12.0-15.5); LYMPH # 1.9 10^3/uL (1.5-5.0); MEAN CORPUSCULAR HEMOGLOBIN 25.5 pg (27.0-33.0); MEAN CORPUSCULAR HGB CONC 30.2 g/dl (32.0-36.5); MEAN CORPUSCULAR VOLUME 84.6 fl (80.0-96.0); MONO % 8.3 % (0.0-5.0); NEUTROPHILS # 8.7 10^3/uL (1.5-8.5); NEUTROPHILS % 71.6 % (36.0-66.0); PLATELET COUNT, AUTOMATED 443 10^3/uL (150-450); RED BLOOD COUNT 3.76 10^6/uL (4.00-5.40); WHITE BLOOD COUNT 12.1 10^3/uL (4.0-10.0)
[2020-03-27 10:32] LABS: BLOOD UREA NITROGEN 16 MG/DL (7-18); CALCIUM LEVEL 8.6 MG/DL (8.8-10.2); CARBON DIOXIDE LEVEL 33 MEQ/L (21-32); CHLORIDE LEVEL 100 MEQ/L (98-107); CREATININE FOR GFR 0.45 MG/DL (0.55-1.30); GLOMERULAR FILTRATION RATE > 60.0 (>45); GLUCOSE, FASTING 123 MG/DL (70-100); MAGNESIUM LEVEL 1.9 MG/DL (1.8-2.4); POTASSIUM SERUM 4.3 MEQ/L (3.5-5.1); SODIUM LEVEL 137 MEQ/L (136-145)
[2020-03-27] MEDS ORDERED: LINE1TAB PO (12:52)
[2020-03-27 14:00] VITALS: BP 114/68
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
[2020-03-27] MEDS: ACETAMINOPHEN TAB 650MG DOSE (2X325MG) PO PRN (17:36)
[2020-03-27] MEDS: SENNA 8.6 MG TAB (SENOKOT) PO SCH (20:16)
[2020-03-27] MEDS: RAMELTEON 8 MG TAB (ROZEREM) PO PRN (20:16)
[2020-03-27] MEDS: DULoxetine 30 MG CAP (CYMBALTA) PO SCH (20:18)
[2020-03-27] MEDS: MELOXICAM (MOBIC) 7.5 MG TAB PO SCH (20:18)
[2020-03-27] MEDS: ATORVASTATIN 20 MG TAB PO SCH (20:18)
[2020-03-27] MEDS: predniSONE 10 MG TAB PO SCH (20:18)
[2020-03-27 22:00] VITALS: BP 103/66
[2020-03-28 06:00] VITALS: BP 132/67
[2020-03-28] MEDS: atenoloL 25 MG TAB PO SCH ×3 (09:00→21:39)
[2020-03-28] MEDS: predniSONE 5 MG TAB PO SCH (09:44)
[2020-03-28] MEDS: HYDROXYCHLOROQUINE 200 MG TAB PO SCH (09:45)
[2020-03-28] MEDS: GABAPENTIN 300 MG CAP PO SCH ×3 (09:45→21:39)
[2020-03-28] MEDS: DOCUSATE SODIUM 100 MG CAP PO SCH ×2 (09:45→21:39)
[2020-03-28] MEDS: ASPIRIN 81 MG ENTERIC TAB PO SCH (09:45)
[2020-03-28] MEDS: BUPRENORPHINE/NALOXONE 2-0.5MG SUBLINGUAL TABLET(SUBOXONE) SL SCH ×2 (09:45→21:37)
[2020-03-28] MEDS: HumaLOG INSULIN (NovoLOG) PER UNIT SC SCH ×4 (09:46→21:00)
[2020-03-28] MEDS: ENOXAPARIN 40MG/0.4ML SYRINGE (J1650 PER 10MG) SC SCH (09:46)
[2020-03-28] MEDS: ACETAMINOPHEN TAB 650MG DOSE (2X325MG) PO PRN (09:46)
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
[2020-03-28] MEDS: LINEZOLID 600MG TABLET (ZYVOX) PO SCH ×2 (13:10→21:38)
[2020-03-28 15:15] VITALS: BP 107/50
[2020-03-28] MEDS: RAMELTEON 8 MG TAB (ROZEREM) PO PRN (21:38)
[2020-03-28] MEDS: ATORVASTATIN 20 MG TAB PO SCH (21:38)
[2020-03-28] MEDS: predniSONE 10 MG TAB PO SCH (21:39)
[2020-03-28] MEDS: SENNA 8.6 MG TAB (SENOKOT) PO SCH (21:39)
[2020-03-28] MEDS: MELOXICAM (MOBIC) 7.5 MG TAB PO SCH (21:39)
[2020-03-28 22:00] VITALS: BP 125/58
[2020-03-28] MEDS ORDERED: BISACODYL 10 MG SUPP PR PRN (22:00)
[2020-03-29 06:00] VITALS: BP 104/58
[2020-03-29] MEDS: BUPRENORPHINE/NALOXONE 2-0.5MG SUBLINGUAL TABLET(SUBOXONE) SL SCH (09:40)
[2020-03-29] MEDS: HumaLOG INSULIN (NovoLOG) PER UNIT SC SCH ×2 (09:40→14:00)
[2020-03-29] MEDS: HYDROXYCHLOROQUINE 200 MG TAB PO SCH (09:41)
[2020-03-29] MEDS: predniSONE 5 MG TAB PO SCH (09:41)
[2020-03-29] MEDS: DOCUSATE SODIUM 100 MG CAP PO SCH (09:41)
[2020-03-29] MEDS: ACETAMINOPHEN TAB 650MG DOSE (2X325MG) PO PRN (09:41)
[2020-03-29] MEDS: LINEZOLID 600MG TABLET (ZYVOX) PO SCH (09:41)
[2020-03-29] MEDS: ASPIRIN 81 MG ENTERIC TAB PO SCH (09:41)
[2020-03-29] MEDS: GABAPENTIN 300 MG CAP PO SCH (09:41)
[2020-03-29] MEDS: ENOXAPARIN 40MG/0.4ML SYRINGE (J1650 PER 10MG) SC SCH (09:42)
[2020-03-29 09:43] VITALS: BP 133/74
[2020-03-29] MEDS: atenoloL 25 MG TAB PO SCH (09:43)
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
[2020-03-29 14:00] VITALS: BP 115/61
--- NOTE | 2020-03-30 07:36 | IPN ---
NOTE: This is a repeat Telemedicine Advanced Wound Care Visit DATE: 03/29/2020 REQUESTING PHYSICIAN: Dr. Maxwell. REASON FOR VISIT: This is in regards to care of a right buttock wound. HISTORY OF PRESENT ILLNESS: 64-year-old noncompliant patient admitted for pneumonia with multiple previous wounds involving the lower extremities, but more importantly one involving the right buttock which is a full thickness stage 4 pressure injury. Patient had incontinent dermatitis involving the perineum which was treated with Cavilon wound prep. In terms of the actual ulcer this has been debrided by general surgery at bedside and much appreciated. It measures 5 cm x 4.8 cm with a wound depth of 0.6 cm. it has undermining circumferentially of 0.8 cm; however, at the 12:00 o'clock position there is a tunnel measuring 4.5 cm. there is a crescent shape area from the 5:00 o'clock to the 9:00 o'clock position of necrotic undermined tissue. The drainage is serosanguineous and moderate. TREATMENT RECOMMENDATIONS: Treatment has been Hydrofera Blue Foam with a cover dressing to be changed on an every other day basis. This should be continued. Patient will need further debridement and excision of undermining which can be accomplished in the near future as an outpatient. She is scheduled to see [facility] on a first available appointment. It should be noted that the patient's PCP had called 5 weeks prior to her recent hospitalization to schedule an appointment for evaluation and treatment and the patient declined. This has led to progression of her wound as early treatment is always more efficacious than delayed. Treatments for pressure area wounds such as this patient has often take months to heal and compliance is mandatory to get the proper results. MICHAEL
== END 2020-03-29 16:19 | disposition home health service (06) | DRG 951 ==
LOC: M ED 10:46 → EDBD 10:46 → M ED INP 10:47 → UNDOADMOB 14:16 → OBSVTOIN 16:24 → ENRESERV 17:30 → M MSPAV 18:24
PROVIDERS: ADMIT Internal Medicine; ATTEND Internal Medicine
PROC: 0KBN0ZZ Excision of Right Hip Muscle, Open Approach (ICD-10-PCS; principal; 2020-03-23)
PROC: 0CJS8ZZ Inspection of Larynx, Via Natural or Artificial Opening Endoscopic (ICD-10-PCS; 2020-03-23)
DX: J15.212 Pneumonia due to Methicillin resistant Staphylococcus aureus (principal); J96.01 Acute respiratory failure with hypoxia; I50.33 Acute on chronic diastolic (congestive) heart failure; L89.153 Pressure ulcer of sacral region, stage 3; G82.20 Paraplegia, unspecified; J38.00 Paralysis of vocal cords and larynx, unspecified; Z93.0 Tracheostomy status; Z68.41 Body mass index [BMI] 40.0-44.9, adult; I11.0 Hypertensive heart disease with heart failure; E66.01 Morbid (severe) obesity due to excess calories; E11.9 Type 2 diabetes mellitus without complications; N32.81 Overactive bladder; K59.00 Constipation, unspecified; Z90.49 Acquired absence of other specified parts of digestive tract; Z86.14 Personal history of Methicillin resistant Staphylococcus aureus infection; Z79.82 Long term (current) use of aspirin; Z79.1 Long term (current) use of non-steroidal anti-inflammatories (NSAID); Z79.52 Long term (current) use of systemic steroids; Z79.899 Other long term (current) drug therapy

== ENCOUNTER 2020-04-06 19:24 | Inpatient (IN) | payer OTHER ==
[~2020-04-06] VITALS: Ht 172.7 cm; Wt 129.3 kg
[2020-04-06] MEDS: atenoloL 25 MG TAB PO SCH (01:40)
[~2020-04-06 19:24] MED LIST changes: +ASPI81TA26 PO; +LINE1TAB PO
[2020-04-06] MEDS: HumaLOG INSULIN (NovoLOG) PER UNIT SC SCH (21:00)
[2020-04-06 21:15] VITALS: BP 163/79
[2020-04-06] MEDS ORDERED: MOM 30ML SUSPENSION UDC PO PRN (22:45)
[2020-04-06] MEDS ORDERED: MAALOX 30 ML SUSP *UDC PO PRN (22:45)
[2020-04-06] MEDS ORDERED: GLUCOSE 4GM CHEW TABLET PO PRN (23:15)
[2020-04-06] MEDS ORDERED: DEXTROSE 50% 50 ML SYRINGE IV PRN (23:15)
[2020-04-06] MEDS ORDERED: GLUCAGON INJ 1MG VIAL SC PRN (23:15)
[2020-04-06 23:22] LABS: BASO # 0.1 10^3/uL (0.0-0.2); BASO % 0.5 % (0.0-1.0); EOS % 0.1 % (0.0-3.0); HEMATOCRIT 32.9 % (36.0-47.0); HEMOGLOBIN 9.9 g/dl (12.0-15.5); LYMPH % 6.6 % (24.0-44.0); MEAN CORPUSCULAR HEMOGLOBIN 25.4 pg (27.0-33.0); MEAN CORPUSCULAR HGB CONC 30.1 g/dl (32.0-36.5); MEAN CORPUSCULAR VOLUME 84.4 fl (80.0-96.0); MONO # 0.3 10^3/uL (0.0-0.8); MONO % 2.2 % (0.0-5.0); NEUTROPHILS # 13.4 10^3/uL (1.5-8.5); NEUTROPHILS % 89.6 % (36.0-66.0); PLATELET COUNT, AUTOMATED 435 10^3/uL (150-450)
[2020-04-06] MEDS ORDERED: MELA3TAB49 PO (23:36)
[2020-04-06] MEDS ORDERED: ATOR40TA75 PO (23:36)
[2020-04-06] MEDS ORDERED: LINE1TAB6 PO (23:36)
[2020-04-06 23:53] LABS: BLOOD UREA NITROGEN 19 MG/DL (7-18); CALCIUM LEVEL 8.4 MG/DL (8.8-10.2); CARBON DIOXIDE LEVEL 36 MEQ/L (21-32); CHLORIDE LEVEL 100 MEQ/L (98-107); CREATININE FOR GFR 0.57 MG/DL (0.55-1.30); GLOMERULAR FILTRATION RATE > 60.0 (>45); GLUCOSE, FASTING 159 MG/DL (70-100); MAGNESIUM LEVEL 1.9 MG/DL (1.8-2.4); POTASSIUM SERUM 4.6 MEQ/L (3.5-5.1); SODIUM LEVEL 140 MEQ/L (136-145)
[2020-04-07] VITALS (18 sets, daily range): BP systolic 116–161; BP diastolic 55–74; O2SAT 90–96
[2020-04-07] MEDS ORDERED: hydrOXYzine 25 MG TAB PO PRN
[2020-04-07] MEDS ORDERED: NYSTATIN 100,000 UNITS/GM TOPICAL PWD 15 GM TOP PRN
[2020-04-07] MEDS ORDERED: guaiFENesin SYRUP 200 MG/10 ML UDC PO PRN
[2020-04-07] MEDS ORDERED: MIRALAX *UNIT DOSE* 17GM PACKET PO PRN
[2020-04-07] MEDS ORDERED: methocarbamoL 500 MG TAB PO PRN
[2020-04-07] MEDS ORDERED: IPRATROPIUM 0.5MG/ALBUTEROL 2.5MG INH SOL UD 3ML (DUONEB) INH PRN
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
[2020-04-07] MEDS: DOCUSATE SODIUM 100 MG CAP PO SCH ×3 (01:21→21:33)
[2020-04-07] MEDS: DULoxetine 30 MG CAP (CYMBALTA) PO SCH ×2 (01:21→21:33)
[2020-04-07] MEDS: SENNA 8.6 MG TAB (SENOKOT) PO SCH ×2 (01:21→21:33)
[2020-04-07] MEDS: GABAPENTIN 300 MG CAP PO SCH ×4 (01:24→21:33)
[2020-04-07] MEDS: predniSONE 10 MG TAB PO SCH ×2 (01:24→21:34)
[2020-04-07] MEDS: ATORVASTATIN 20 MG TAB PO SCH ×2 (01:29→21:34)
[2020-04-07] MEDS: BUPRENORPHINE/NALOXONE 2-0.5MG SUBLINGUAL TABLET(SUBOXONE) SL SCH ×3 (01:35→21:42)
[2020-04-07] MEDS: LINEZOLID 600MG TABLET (ZYVOX) PO SCH ×3 (01:41→21:34)
[2020-04-07] MEDS: MELOXICAM (MOBIC) 7.5 MG TAB PO SCH ×2 (01:41→21:33)
[2020-04-07 06:02] LABS: BASO # 0.1 10^3/uL (0.0-0.2); BASO % 0.3 % (0.0-1.0); HEMATOCRIT 31.9 % (36.0-47.0); HEMOGLOBIN 9.5 g/dl (12.0-15.5); LYMPH # 1.3 10^3/uL (1.5-5.0); MEAN CORPUSCULAR HEMOGLOBIN 25.1 pg (27.0-33.0); MEAN CORPUSCULAR HGB CONC 29.8 g/dl (32.0-36.5); MEAN CORPUSCULAR VOLUME 84.2 fl (80.0-96.0); MONO % 6.8 % (0.0-5.0); NEUTROPHILS # 12.3 10^3/uL (1.5-8.5); PLATELET COUNT, AUTOMATED 447 10^3/uL (150-450); RED BLOOD COUNT 3.79 10^6/uL (4.00-5.40); WHITE BLOOD COUNT 14.8 10^3/uL (4.0-10.0)
[2020-04-07 06:19] LABS: BLOOD UREA NITROGEN 22 MG/DL (7-18); CALCIUM LEVEL 8.7 MG/DL (8.8-10.2); CARBON DIOXIDE LEVEL 38 MEQ/L (21-32); CHLORIDE LEVEL 101 MEQ/L (98-107); CREATININE FOR GFR 0.54 MG/DL (0.55-1.30); GLOMERULAR FILTRATION RATE > 60.0 (>45); GLUCOSE, FASTING 122 MG/DL (70-100); MAGNESIUM LEVEL 2.1 MG/DL (1.8-2.4); POTASSIUM SERUM 4.9 MEQ/L (3.5-5.1); SODIUM LEVEL 140 MEQ/L (136-145)
[2020-04-07] MEDS: HumaLOG INSULIN (NovoLOG) PER UNIT SC SCH ×4 (08:39→21:00)
[2020-04-07] MEDS: HYDROXYCHLOROQUINE 200 MG TAB PO SCH (09:03)
[2020-04-07] MEDS: HEPARIN SOD (PORCINE) 5000UNITS/ML 1ML VIAL/SYRINGE SC SCH ×2 (09:03→21:32)
[2020-04-07] MEDS: ASPIRIN 81 MG ENTERIC TAB PO SCH (09:03)
[2020-04-07] MEDS: predniSONE 5 MG TAB PO SCH (09:04)
[2020-04-07] MEDS: atenoloL 25 MG TAB PO SCH ×2 (09:04→21:33)
[2020-04-07 09:14] LABS: NT-PRO BNP 1176 PG/ML (<125)
--- NOTE | 2020-04-07 13:33 | IPNPDOC ---
Text Note Date of Service The patient was seen on 04/07/20. NOTE Subjective: Patient stated that she feels better today, her breathing improved. She is on1 L of oxygen Objective: GENERAL APPEARANCE: NAD HEENT: no scleral icterus, no JVD, EOMI, track collar in place CARDIOVASCULAR: S1S2 LUNGS: CTA ABDOMEN: soft & not tender w palpitation MUSCULOSKELETAL: no cyanosis, no swelling INTEGUMENT: : Patient has decubitus ulcers over her sacrum and gluteal areas from stage 2 stage III There is no purulent drainage from these areas. NEUROLOGICAL: cranial nerve function from 2-12 intact intact, follows commands, speech not dysarthric Assessment and plan Patient is 64 years old female with type 2 diabetes, diastolic heart failure, paraplegic presented to the hospital with dyspnea secondary to CHF exacerbation Acute hypoxemic respiratory failure Secondary to acute diastolic CHF Lasix IV Acute diastolic CHF I's and O's Cardiac diet Lasix IV Sacral decubitus ulcer Continue to linezolid Patient afebrile Dr. Reed follows her Type 2 diabetes mellitus Insulin diet Insulin sliding scale Blood glucose level under control Morbid obesity Complicated care Constipation Resolved Hypertension Blood pressures under control Continue home meds VS,Fishbone, I+O VS, Fishbone, I+O Laboratory Tests 04/06/20 23:11 04/07/20 05:34 Vital Signs Date Time Temp Pulse Resp B/P (MAP) Pulse Ox O2 Delivery O2 Flow Rate FiO2 04/07/20 12:00 1.0 04/07/20 12:00 96.7 66 18 131/69 (89) 94 Nasal Cannula I&O- Last 24 Hours up to 6 AM 04/07/20 06:00 Intake Total 0 ml Output Total 450 ml Balance -450 ml SANDRO NICOLE DO Apr 07, 2020 13:33
[2020-04-07] MEDS ORDERED: FUROSEMIDE 20 MG TAB PO SCH (17:00)
[2020-04-07] MEDS: ACETAMINOPHEN TAB 650MG DOSE (2X325MG) PO PRN (17:07)
[2020-04-07] MEDS: FUROSEMIDE 40 MG TAB PO SCH (17:08)
[2020-04-08] VITALS: BP 160/87; O2SAT 94; O2SAT 96
[2020-04-08 04:00] VITALS: BP 159/75; O2SAT 95
[2020-04-08 05:43] LABS: BASO # 0.1 10^3/uL (0.0-0.2); BASO % 0.9 % (0.0-1.0); EOS # 0.1 10^3/uL (0.0-0.5); HEMATOCRIT 30.9 % (36.0-47.0); HEMOGLOBIN 9.6 g/dl (12.0-15.5); LYMPH # 1.9 10^3/uL (1.5-5.0); LYMPH % 15.8 % (24.0-44.0); MEAN CORPUSCULAR HEMOGLOBIN 26.1 pg (27.0-33.0); MEAN CORPUSCULAR HGB CONC 31.1 g/dl (32.0-36.5); MONO # 1.1 10^3/uL (0.0-0.8); NEUTROPHILS # 8.7 10^3/uL (1.5-8.5); NEUTROPHILS % 72.8 % (36.0-66.0); PLATELET COUNT, AUTOMATED 425 10^3/uL (150-450); RED BLOOD COUNT 3.68 10^6/uL (4.00-5.40)
[2020-04-08 06:05] LABS: BLOOD UREA NITROGEN 26 MG/DL (7-18); CALCIUM LEVEL 8.6 MG/DL (8.8-10.2); CARBON DIOXIDE LEVEL 37 MEQ/L (21-32); CHLORIDE LEVEL 100 MEQ/L (98-107); CREATININE FOR GFR 0.53 MG/DL (0.55-1.30); GLOMERULAR FILTRATION RATE > 60.0 (>45); GLUCOSE, FASTING 137 MG/DL (70-100); MAGNESIUM LEVEL 1.8 MG/DL (1.8-2.4); POTASSIUM SERUM 4.3 MEQ/L (3.5-5.1); SODIUM LEVEL 140 MEQ/L (136-145)
[2020-04-08 08:00] VITALS: BP 153/81
[2020-04-08] MEDS: LINEZOLID 600MG TABLET (ZYVOX) PO SCH (09:24)
[2020-04-08] MEDS: ACETAMINOPHEN TAB 650MG DOSE (2X325MG) PO PRN (09:24)
[2020-04-08] MEDS: predniSONE 5 MG TAB PO SCH (09:24)
[2020-04-08] MEDS: HEPARIN SOD (PORCINE) 5000UNITS/ML 1ML VIAL/SYRINGE SC SCH (09:24)
[2020-04-08] MEDS: ASPIRIN 81 MG ENTERIC TAB PO SCH (09:24)
[2020-04-08] MEDS: GABAPENTIN 300 MG CAP PO SCH (09:24)
[2020-04-08 09:25] VITALS: BP 153/81
[2020-04-08] MEDS: FUROSEMIDE 40 MG TAB PO SCH (09:25)
[2020-04-08] MEDS: BUPRENORPHINE/NALOXONE 2-0.5MG SUBLINGUAL TABLET(SUBOXONE) SL SCH (09:25)
[2020-04-08] MEDS: DOCUSATE SODIUM 100 MG CAP PO SCH (09:25)
[2020-04-08] MEDS: atenoloL 25 MG TAB PO SCH (09:25)
[2020-04-08] MEDS: HYDROXYCHLOROQUINE 200 MG TAB PO SCH (09:25)
[2020-04-08] MEDS: HumaLOG INSULIN (NovoLOG) PER UNIT SC SCH ×2 (09:26→12:00)
[2020-04-08] MEDS ORDERED: DULC5TAB PO (11:44)
[2020-04-08] MEDS ORDERED: FURO20TA2 PO (11:44)
--- NOTE | 2020-04-08 17:50 | DS.PDOC ---
Discharge Summary General Date of Admission Apr 06, 2020 at 22:01 Date of Discharge 04/08/20 Discharge Summary PROCEDURES PERFORMED DURING STAY: [None]. ADMITTING DIAGNOSES: Acute diastolic CHF Acute hypoxemic respiratory failure Type 2 diabetes mellitus Morbid obesity Constipation Hypertension acute diastolic CHF DISCHARGE DIAGNOSES: Acute diastolic CHF Acute hypoxemic respiratory failure Type 2 diabetes mellitus Morbid obesity Constipation Hypertension acute diastolic CHF COMPLICATIONS/CHIEF COMPLAINT: Fluid Overload. HISTORY OF PRESENT ILLNESS: Patient is 64 years old female with type 2 diabetes, diastolic heart failure, paraplegic presented to the hospital with dyspnea secondary to CHF exacerbation HOSPITAL COURSE: During hospital stay following issue addressed Acute hypoxemic respiratory failure Secondary to acute diastolic CHF Lasix IV Acute diastolic CHF I's and O's Cardiac diet Lasix IV Sacral decubitus ulcer Continue to linezolid Patient afebrile Dr. Reed follows her Type 2 diabetes mellitus Insulin diet Insulin sliding scale Blood glucose level under control Morbid obesity Complicated care Constipation Resolved Hypertension Blood pressures under control Continue home meds DISCHARGE MEDICATIONS: Please see below. ALLERGIES: Please see below. LABORATORY DATA: Please see below. PHYSICAL EXAMINATION ON DISCHARGE: VITAL SIGNS: Please see below. GENERAL APPEARANCE: NAD HEENT: no scleral icterus, no JVD, EOMI, track collar in place CARDIOVASCULAR: S1S2 LUNGS: CTA ABDOMEN: soft & not tender w palpitation MUSCULOSKELETAL: no cyanosis, no swelling INTEGUMENT: : Patient has decubitus ulcers over her sacrum and gluteal areas from stage 2 stage III There is no purulent drainage from these areas. NEUROLOGICAL: cranial nerve function from 2-12 intact intact, follows commands, speech not dysarthric PROGNOSIS: ACTIVITY: [As tolerated]. DIET: Cardiac DISPOSITION: Home, Self-Care. DISCHARGE INSTRUCTIONS: Cardiac diet, follow-up with bar waiter/waitress in 7 days DISCHARGE CONDITION: [Stable]. TIME SPENT ON DISCHARGE: Greater than 20 minutes. Vital Signs/I&Os Vital Signs Date Time Temp Pulse Resp B/P (MAP) Pulse Ox O2 Delivery O2 Flow Rate FiO2 04/08/20 09:25 63 153/81 04/08/20 08:00 1.0 04/08/20 08:00 96.9 18 95 Nasal Cannula I&O- Last 24 Hours up to 6 AM 04/08/20 06:00 Intake Total 1960 ml Output Total 1300 ml Balance 660 ml Laboratory Data Labs 24H Laboratory Tests 2 04/07/20 21:46: Bedside Glucose (Misc Panel) 154H 04/08/20 05:25: Immature Granulocyte % (Auto) 0.5, Neutrophils (%) (Auto) 72.8H, Lymphocytes (%) (Auto) 15.8L, Monocytes (%) (Auto) 9.0H, Eosinophils (%) (Auto) 1.0, Basophils (%) (Auto) 0.9, Neutrophils # (Auto) 8.7H, Lymphocytes # (Auto) 1.9, Monocytes # (Auto) 1.1H, Eosinophils # (Auto) 0.1, Basophils # (Auto) 0.1, Nucleated Red Blood Cells % (auto) 0.0, Anion Gap 3L, Glomerular Filtration Rate > 60.0, Calcium Level 8.6L, Magnesium Level 1.8 04/08/20 11:44: Bedside Glucose (Misc Panel) 125H CBC/BMP Laboratory Tests 04/08/20 05:25 FSBS Laboratory Tests Test 04/07/20 21:46 04/08/20 11:44 Range/Units Bedside Glucose (Misc Panel) 154 125 80-115 MG/DL Discharge Medications Scheduled Aspirin (Aspirin EC) 81 Mg Tablet.dr, 81 MG PO DAILY, (Reported) Atenolol (Atenolol) 25 Mg Tablet, 25 MG PO BID, (Reported) Atorvastatin Calcium (Atorvastatin Calcium) 40 Mg Tablet, 40 MG PO QHS, (Reported) Bisacodyl (Dulcolax) 5 Mg Tablet.dr, 5 MG PO ASDIRECTED for constipation Buprenorphine HCl/Naloxone HCl (Suboxone 4 mg-1 mg Sl Film) 1 Each Film, 1 STRIP SL BID, (Reported) Docusate Sodium (Docusate Sodium) 100 Mg Capsule, 100 MG PO BID, (Reported) Duloxetine Hcl (Duloxetine HCl) 60 Mg Capsule.dr, 60 MG PO QHS, (Reported) Furosemide (Furosemide) 20 Mg Tablet, 20 MG PO DAILY Gabapentin (Gabapentin) 600 Mg Tab, 600 MG PO TID, (Reported) Hydroxychloroquine Sulfate (Hydroxychloroquine Sulfate) 200 Mg Tablet, 200 MG PO DAILY, (Reported) Linezolid (Linezolid) 600 Mg Tablet, 600 MG PO BID, (Reported) Melatonin (Melatonin) 3 Mg Tab.rapdis, 3 MG PO QHS, (Reported) Meloxicam (Mobic) 7.5 Mg Tablet, 7.5 MG PO QHS, (Reported) WITH FOOD Prednisone (Prednisone) 10 Mg Tablet, 10 MG PO QHS, (Reported) Prednisone (Prednisone) 5 Mg Tablet, 5 MG PO QAM, (Reported) Sennosides (Senna Lax) 8.6 Mg Tablet, 8.6 MG PO QHS, (Reported) Scheduled PRN Acetaminophen (Acetaminophen) 325 Mg Tablet, 650 MG PO Q4H PRN for PAIN, (Reported) Diclofenac Sodium (Voltaren) 100 Gm Gel..gram., 1 GRAM TOP QID PRN for BACK PAIN, (Reported) apply to affected area(s) Guaifenesin (Guaifenesin) 100 Mg/5 Ml Liquid, 10 M PO Q4H PRN for COUGH, (Reported) Hydroxyzine HCl (Hydroxyzine HCl) 25 Mg Tablet, 25 MG PO QID PRN for ANXIETY, (Reported) Ipratropium/Albuterol Sulfate (Iprat-Albut 0.5-3(2.5) mg/3 ml) 3 Ml Ampul.neb, 1 VIAL INH Q6H PRN for SOB/WHEEZING, (Reported) Methocarbamol (Methocarbamol) 500 Mg Tablet, 500 MG PO QID PRN for MUSCLE SPASMS, (Reported) Nystatin (Nystatin Powder) 15 Gm Powder, 1 APLCT TOP BID PRN for RASH/ITCHING, (Reported) APPLY UNDER BREASTS Polyethylene Glycol 3350 (Miralax) 119 Gm Powder, 17 GM PO DAILY PRN for CONSTIPATION, (Reported) dilute in 8 ounces of water or juice Propylene Glycol/Peg 400 (Lubricating Eye Drop) 15 Ml Drops, 1 DROP OU Q2H PRN for DRY EYES, (Reported) Allergies Coded Allergies: No Known Allergies (Unverified , 10/15/18) SANDRO NICOLE DO Apr 08, 2020 17:50
== END 2020-04-08 12:35 | disposition home health service (06) | DRG 194 ==
LOC: M PCU 22:01
PROVIDERS: ADMIT Family Medicine; ATTEND Internal Medicine
DX: I11.0 Hypertensive heart disease with heart failure (principal); L89.150 Pressure ulcer of sacral region, unstageable; Z93.0 Tracheostomy status; L89.152 Pressure ulcer of sacral region, stage 2; G82.20 Paraplegia, unspecified; L89.151 Pressure ulcer of sacral region, stage 1; E66.01 Morbid (severe) obesity due to excess calories; N31.9 Neuromuscular dysfunction of bladder, unspecified; Z68.41 Body mass index [BMI] 40.0-44.9, adult; E11.9 Type 2 diabetes mellitus without complications; I50.33 Acute on chronic diastolic (congestive) heart failure; K59.00 Constipation, unspecified; Z86.14 Personal history of Methicillin resistant Staphylococcus aureus infection; Z90.49 Acquired absence of other specified parts of digestive tract; Z79.82 Long term (current) use of aspirin; Z79.52 Long term (current) use of systemic steroids; Z79.1 Long term (current) use of non-steroidal anti-inflammatories (NSAID); Z79.899 Other long term (current) drug therapy

== ENCOUNTER 2020-04-14 11:34 | Inpatient (IN) | payer OTHER ==
[2020-04-14] VITALS (13 sets, daily range): BP systolic 75–107; BP diastolic 40–66; O2SAT 95
[~2020-04-14] VITALS: Ht 170.2 cm; Wt 126.5 kg
[~2020-04-14 11:34] MED LIST changes: +ATOR40TA75 PO; +DULC5TAB PO; +FURO20TA2 PO; +LINE1TAB6 PO; +MELA3TAB49 PO
[2020-04-14] MEDS ORDERED: NS 500 ML IV ONE ×2 (12:15→23:15)
[2020-04-14 12:28] LABS: BASO # 0.1 10^3/uL (0.0-0.2); BASO % 0.7 % (0.0-1.0); EOS # 0.3 10^3/uL (0.0-0.5); EOS % 1.7 % (0.0-3.0); HEMATOCRIT 32.1 % (36.0-47.0); HEMOGLOBIN 9.6 g/dl (12.0-15.5); MEAN CORPUSCULAR HEMOGLOBIN 25.1 pg (27.0-33.0); MEAN CORPUSCULAR HGB CONC 29.9 g/dl (32.0-36.5); MONO # 1.8 10^3/uL (0.0-0.8); MONO % 10.9 % (0.0-5.0); NEUTROPHILS # 12.4 10^3/uL (1.5-8.5); PLATELET COUNT, AUTOMATED 321 10^3/uL (150-450); RED BLOOD COUNT 3.82 10^6/uL (4.00-5.40); WHITE BLOOD COUNT 16.8 10^3/uL (4.0-10.0)
--- NOTE | 2020-04-14 12:33 | REP ---
INDICATION: DYSPNEA/COUGH. COMPARISON: None. FINDINGS: The technique utilized in obtaining the radiograph has magnified the cardiac silhouette and accentuated the interstitial markings. The cardiomediastinal silhouette is unchanged. Mild cardiomegaly accentuated by technique is suspected. There is no significant change in appearance of the lung blair. Bibasilar opacities are noted status quo. There is no change in the osseous structures. IMPRESSION: Stable appearing chronic changes, however, I cannot rule out the possibility of acute basilar pneumonia superimposed upon chronic change. <Electronically signed by Melquiades Evans > 04/14/20 [id number]
[2020-04-14 13:00] LABS: ALBUMIN 2.5 GM/DL (3.2-5.2); ALT/SGPT 9 U/L (12-78); BILIRUBIN,DIRECT 0.2 MG/DL (0.0-0.2); BILIRUBIN,TOTAL 0.5 MG/DL (0.2-1.0); BLOOD UREA NITROGEN 25 MG/DL (7-18); CALCIUM LEVEL 8.5 MG/DL (8.8-10.2); CARBON DIOXIDE LEVEL 33 MEQ/L (21-32); CHLORIDE LEVEL 100 MEQ/L (98-107); CREATININE FOR GFR 0.94 MG/DL (0.55-1.30); GLOMERULAR FILTRATION RATE > 60.0 (>45); GLUCOSE, FASTING 114 MG/DL (70-100); NT-PRO BNP 13028 PG/ML (<125); POTASSIUM SERUM 4.9 MEQ/L (3.5-5.1); SODIUM LEVEL 138 MEQ/L (136-145); TOTAL PROTEIN 6.7 GM/DL (6.4-8.2)
[2020-04-14] MEDS ORDERED: LevoFLOXacin IV 750 MG in IV 1 EA IV ONE (13:00)
[2020-04-14 13:36] LABS: APPEARANCE, URINE TURBID (CLEAR); BACTERIA, URINE AUTO 2+ (NEGATIVE); BILIRUBIN, URINE AUTO NEGATIVE (NEGATIVE); BLOOD, URINE BLOOD 1+ (NEGATIVE); COLOR, URINE YELLOW (YELLOW); GLUCOSE, URINE (UA) AUTO NEGATIVE (NEGATIVE); KETONE, URINE AUTO NEGATIVE (NEGATIVE); LEUKOCYTE ESTERASE, URINE AUTO 3+ (NEGATIVE); NITRITE, URINE AUTO NEGATIVE (NEGATIVE); PROTEIN, URINE AUTO 2+ mg/dL (NEGATIVE); RBC, URINE AUTO 31 /HPF (0-3); SPECIFIC GRAVITY URINE AUTO 1.015 (1.002-1.035); SQUAMOUS EPITHELIAL CELL UR AU 0 /HPF (0-6); UROBILINOGEN, URINE AUTO 0.2 mg/dL (0.0-2.0); WBC, URINE AUTO TNTC /HPF (0-3)
[2020-04-14] MEDS ORDERED: VANCOMYCIN HCL 1,000 MG, VIAL MATE ADAPTER 1 EACH in D5W 250 ML IV ONE ×8 (13:45→19:00)
[2020-04-14] MEDS ORDERED: PIPERACILLIN/TAZOBACTAM SOD 3.375 GM in D5W MINI-BAG PLUS 50 ML IV ONE (13:45)
[2020-04-14] MEDS ORDERED: BISA5TAB72 (13:55)
[2020-04-14] MEDS ORDERED: ISOVUE-370 76% 100ML VIAL As Ordered ONE (13:57)
--- NOTE | 2020-04-14 14:41 | REP ---
INDICATION: hypoxia. COMPARISON: 03/20/2020 and 02/20/2020 TECHNIQUE: CT angio chest attention pulmonary arteries. Contrast 100 cc Isovue 370. FINDINGS: As on the prior exams, the patient is status post tracheostomy tube. As on the prior exams, the examination is extremely limited due to motion artifact. As on the prior exams, the central pulmonary arteries appear patent, however, small emboli could be obscured by motion artifact. Small pleural effusions seem to have developed. The mediastinum and pulmonary addison are unchanged. There is no evidence of significant change is seen in the imaged upper abdomen or imaged osseous structures. Once again, evaluation of the lung blair is limited due to motion artifact. Patchy right basilar opacities appear to have developed since the last exam is. IMPRESSION: 1. There is no evidence of gross pulmonary embolus with findings and limitations as described above. 1. Possible right lower lobe pneumonia/atelectasis with very small pleural effusion. Other findings as described above. <Electronically signed by Melquiades Evans > 04/14/20 [id number]
[2020-04-14] MEDS ORDERED: FUROSEMIDE 20MG/2ML VIAL (J1940) IV ONE ×2 (14:45→16:15)
[2020-04-14] MEDS ORDERED: FUROSEMIDE 40MG/4ML VIAL (J1940) IV ONE (14:45)
[2020-04-14] MEDS ORDERED: MOM 30ML SUSPENSION UDC PO PRN (15:15)
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
[2020-04-14] MEDS ORDERED: hydrOXYzine 25 MG TAB PO PRN (16:00)
[2020-04-14] MEDS ORDERED: ACETAMINOPHEN TAB 650MG DOSE (2X325MG) PO PRN (16:00)
[2020-04-14] MEDS ORDERED: guaiFENesin SYRUP 200 MG/10 ML UDC PO PRN (16:00)
[2020-04-14] MEDS ORDERED: DEXTROSE 50% 50 ML SYRINGE IV PRN (16:15)
[2020-04-14] MEDS ORDERED: GLUCOSE 4GM CHEW TABLET PO PRN (16:15)
[2020-04-14] MEDS ORDERED: GLUCAGON INJ 1MG VIAL SC PRN (16:15)
[2020-04-14] MEDS ORDERED: VANCOMYCIN HCL 1,000 MG, VIAL MATE ADAPTER 1 EACH in D5W 250 ML IV SCH (16:15)
[2020-04-14] MEDS ORDERED: ALBUTEROL SULFATE 2.5 MG/0.5 ML INH NEB SOLN NEB ONE (16:15)
[2020-04-14] MEDS ORDERED: methocarbamoL 500 MG TAB PO PRN (17:00)
[2020-04-14] MEDS ORDERED: PIPERACILLIN/TAZOBACTAM SOD 4.5 GM in D5W MINI-BAG PLUS 50 ML IV SCH (18:00)
[2020-04-14] MEDS: ENOXAPARIN 40MG/0.4ML SYRINGE (J1650 PER 10MG) SC SCH (18:37)
[2020-04-14] MEDS: HumaLOG INSULIN (NovoLOG) PER UNIT SC SCH ×2 (18:38→20:54)
[2020-04-14] MEDS: GABAPENTIN 300 MG CAP PO SCH ×2 (18:38→21:02)
[2020-04-14] MEDS: DOCUSATE SODIUM 100 MG CAP PO SCH (20:54)
[2020-04-14] MEDS ORDERED: BUPRENORPHINE/NALOXONE 2-0.5MG SUBLINGUAL TABLET(SUBOXONE) SL SCH (21:00)
[2020-04-14] MEDS: atenoloL 25 MG TAB PO SCH (21:00)
[2020-04-14] MEDS: ATORVASTATIN 20 MG TAB PO SCH (21:02)
[2020-04-14] MEDS: DULoxetine 30 MG CAP (CYMBALTA) PO SCH (21:02)
[2020-04-14] MEDS: PIPERACILLIN/TAZOBACTAM SOD 4.5 GM in D5W MINI-BAG PLUS 50 ML IV SCH (21:03)
[2020-04-15] VITALS (37 sets, daily range): BP systolic 76–150; BP diastolic 39–70
[2020-04-15] MEDS ORDERED: NS 500 ML IV ONE (00:30)
[2020-04-15 01:28] LABS: BASO # 0.1 10^3/uL (0.0-0.2); BASO % 0.6 % (0.0-1.0); EOS # 0.4 10^3/uL (0.0-0.5); HEMATOCRIT 29.8 % (36.0-47.0); HEMOGLOBIN 8.7 g/dl (12.0-15.5); LYMPH # 1.5 10^3/uL (1.5-5.0); LYMPH % 10.4 % (24.0-44.0); MEAN CORPUSCULAR HEMOGLOBIN 25.2 pg (27.0-33.0); MEAN CORPUSCULAR HGB CONC 29.2 g/dl (32.0-36.5); MEAN CORPUSCULAR VOLUME 86.4 fl (80.0-96.0); MONO # 1.7 10^3/uL (0.0-0.8); MONO % 11.5 % (0.0-5.0); NEUTROPHILS # 10.8 10^3/uL (1.5-8.5); NEUTROPHILS % 73.9 % (36.0-66.0); PLATELET COUNT, AUTOMATED 274 10^3/uL (150-450); RED BLOOD COUNT 3.45 10^6/uL (4.00-5.40); WHITE BLOOD COUNT 14.6 10^3/uL (4.0-10.0)
[2020-04-15] MEDS ORDERED: NOREPINEPHRINE BITARTRATE 16 MG in D5W 484 ML IV STA (01:44)
[2020-04-15] MEDS ORDERED: NOREPINEPHRINE BITARTRATE 16 MG in D5W 484 ML IV SCH (01:44)
[2020-04-15 01:51] LABS: ALBUMIN 2.1 GM/DL (3.2-5.2); ALT/SGPT 8 U/L (12-78); BILIRUBIN,TOTAL 0.5 MG/DL (0.2-1.0); BLOOD UREA NITROGEN 22 MG/DL (7-18); CALCIUM LEVEL 7.8 MG/DL (8.8-10.2); CARBON DIOXIDE LEVEL 34 MEQ/L (21-32); CHLORIDE LEVEL 100 MEQ/L (98-107); CREATININE FOR GFR 0.82 MG/DL (0.55-1.30); GLOMERULAR FILTRATION RATE > 60.0 (>45); GLUCOSE, FASTING 98 MG/DL (70-100); MAGNESIUM LEVEL 1.9 MG/DL (1.8-2.4); POTASSIUM SERUM 4.3 MEQ/L (3.5-5.1); SODIUM LEVEL 138 MEQ/L (136-145); TOTAL PROTEIN 5.9 GM/DL (6.4-8.2)
[2020-04-15 03:28] LABS: FREE T4 0.73 NG/DL (0.76-1.46); TROPONIN I 0.02 NG/ML (< 0.10)
[2020-04-15] MEDS ORDERED: BUPRENORPHINE/NALOXONE 2-0.5MG SUBLINGUAL TABLET(SUBOXONE) SL ONE (03:30)
--- NOTE | 2020-04-15 03:44 | IPNPDOC ---
Text Note Date of Service The patient was seen on 04/15/20. NOTE I was called by the patient's nurse at 2307 to inform me that the patient's blood pressure was quite low. Patient's blood pressure was as low as 75/45. I ordered a 500 mL bolus for the patient to see if this would increase the patient's blood pressure. Patient has a history of fluid overload and they had been diuresing her earlier today. Patient's blood pressure did not respond to the initial 500 mL bolus. A second 500 mL bolus was given 1 hour later which did not raise the patient's blood pressure. When I went to examine the patient, the patient had 2+ pitting edema throughout her legs and there were crackles at bilateral bases in her lungs. Patient did not appear to be in any acute distress at this time. Septic workup with CBC, basic metabolic profile, lactic acid, and magnesium level was ordered. Dr. Jefferson, ore fielder, was consult and who placed a central line and start the patient on the Levophed. Patient's blood pressure did recover and come back into the normal range while on Levophed we will continue to monitor the patient's blood pressure. VS,Fishbone, I+O VS, Fishbone, I+O Laboratory Tests 04/14/20 12:15 04/15/20 01:14 Vital Signs Date Time Temp Pulse Resp B/P (MAP) Pulse Ox O2 Delivery O2 Flow Rate FiO2 04/15/20 03:06 74 15 114/51 93 Trach Collar 10.0 60 04/15/20 00:00 96.4 I&O- Last 24 Hours up to 6 AM 04/15/20 06:00 Intake Total 2210 ml Output Total 1710 ml Balance 500 ml GME ATTESTATION GME ATTESTATION My faculty preceptor for this patient encounter was physically present during the encounter and was fully available. All aspects of the patient interview, examination, medical decision making process, and medical care plan development were reviewed and approved by the faculty preceptor. The faculty preceptor is aware and concurs with the plan as stated in the body of this note and will attest to such by his/her cosignature. ANGELI PENA DO Apr 15, 2020 03:44
[2020-04-15] MEDS: PIPERACILLIN/TAZOBACTAM SOD 4.5 GM in D5W MINI-BAG PLUS 50 ML IV SCH ×4 (04:14→21:09)
--- NOTE | 2020-04-15 04:28 | REPVR ---
PROCEDURE INFORMATION: Exam: XR Chest, 1 View Exam date and time: 04/15/2020 2:40 AM Age: 64 years old Clinical indication: Other: Line placement; Additional info: SOB TECHNIQUE: Imaging protocol: XR of the chest Views: 1 view. COMPARISON: [place] PORTABLE CHEST X-RAY 04/14/2020 12:07 PM FINDINGS: Tubes, catheters and devices: Interval placement of right internal jugular central line to the mid superior vena cava. Lungs: The lungs are unchanged. There are no interval infiltrates. Pleural space: Unremarkable. No pleural effusion. No pneumothorax. Heart/Mediastinum: The heart and mediastinum are unchanged. Diaphragm: Elevation of the right hemidiaphragm is similar. Bones/joints: Upper thoracic posterior fusion is again noted. IMPRESSION: 1. Interval placement of a right internal jugular central line to the mid superior vena cava since 04/14/2020. No pneumothorax. 2. Otherwise stable chest. Electronically signed by: Sg Ann On 04/15/2020 04:28:06 AM
[2020-04-15] MEDS: VANCOMYCIN HCL 1,000 MG, VIAL MATE ADAPTER 1 EACH in D5W 250 ML IV SCH ×2 (05:43→19:06)
[2020-04-15 06:11] LABS: ABG BASE EXCESS 5.4 (-2.0-2.0); ABG HCO3 31.5 MEQ/L (22.0-26.0); ABG O2 SATURATION 98.6 % (95.0-99.0); ABG PARTIAL PRESSURE CO2 55.2 mmHg (35.0-45.0); ABG PARTIAL PRESSURE O2 114.8 mmHg (75.0-100.0); ABG STANDARD HCO3 29.4 MEQ/L (22.0-26.0); ABG TOTAL CO2 33.2 MEQ/L (23.0-31.0); ABG pH (ARTERIAL) 7.374 UNITS (7.350-7.450)
[2020-04-15] MEDS: HumaLOG INSULIN (NovoLOG) PER UNIT SC SCH ×4 (07:30→21:00)
[2020-04-15] MEDS: atenoloL 25 MG TAB PO SCH ×2 (09:00→21:00)
[2020-04-15] MEDS: BUPRENORPHINE/NALOXONE 2-0.5MG SUBLINGUAL TABLET(SUBOXONE) SL SCH ×2 (09:25→21:08)
[2020-04-15] MEDS: ASPIRIN 81 MG ENTERIC TAB PO SCH (09:25)
[2020-04-15] MEDS: ENOXAPARIN 40MG/0.4ML SYRINGE (J1650 PER 10MG) SC SCH (09:25)
[2020-04-15] MEDS: PANTOPRAZOLE 40MG VIAL (C9113 PER 1) IV SCH (09:25)
[2020-04-15] MEDS: GABAPENTIN 300 MG CAP PO SCH ×3 (09:26→21:06)
[2020-04-15] MEDS: DOCUSATE SODIUM 100 MG CAP PO SCH ×2 (09:26→21:07)
[2020-04-15] MEDS: HYDROXYCHLOROQUINE 200 MG TAB PO SCH (09:31)
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
[2020-04-15] MEDS: FUROSEMIDE 20MG/2ML VIAL (J1940) IV SCH ×2 (10:42→17:18)
[2020-04-15] MEDS: MIDODRINE 5 MG TAB PO SCH ×3 (10:42→17:19)
[2020-04-15] MEDS ORDERED: MIDODRINE 5 MG TAB PO SCH (12:00)
[2020-04-15] MEDS: DULoxetine 30 MG CAP (CYMBALTA) PO SCH (21:07)
[2020-04-15] MEDS: ATORVASTATIN 20 MG TAB PO SCH (21:07)
[2020-04-16] VITALS: BP 137/70
[2020-04-16 04:00] VITALS: BP 119/68
[2020-04-16] MEDS: PIPERACILLIN/TAZOBACTAM SOD 4.5 GM in D5W MINI-BAG PLUS 50 ML IV SCH ×4 (04:04→21:52)
[2020-04-16] MEDS: LEVOTHYROXINE 50MCG TABLET (0.05MG) PO SCH (05:35)
[2020-04-16] MEDS: VANCOMYCIN HCL 1,000 MG, VIAL MATE ADAPTER 1 EACH in D5W 250 ML IV SCH (05:35)
[2020-04-16 07:13] LABS: BASO # 0.1 10^3/uL (0.0-0.2); BASO % 0.7 % (0.0-1.0); EOS # 0.6 10^3/uL (0.0-0.5); EOS % 6.5 % (0.0-3.0); HEMATOCRIT 27.5 % (36.0-47.0); LYMPH # 1.5 10^3/uL (1.5-5.0); LYMPH % 15.8 % (24.0-44.0); MEAN CORPUSCULAR HGB CONC 29.1 g/dl (32.0-36.5); MEAN CORPUSCULAR VOLUME 85.9 fl (80.0-96.0); MONO # 1.2 10^3/uL (0.0-0.8); MONO % 12.1 % (0.0-5.0); NEUTROPHILS # 6.2 10^3/uL (1.5-8.5); NEUTROPHILS % 64.5 % (36.0-66.0); PLATELET COUNT, AUTOMATED 282 10^3/uL (150-450); WHITE BLOOD COUNT 9.6 10^3/uL (4.0-10.0)
[2020-04-16 07:38] LABS: ALBUMIN 2.1 GM/DL (3.2-5.2); ALT/SGPT 10 U/L (12-78); BILIRUBIN,TOTAL 0.3 MG/DL (0.2-1.0); BLOOD UREA NITROGEN 13 MG/DL (7-18); CALCIUM LEVEL 8.4 MG/DL (8.8-10.2); CARBON DIOXIDE LEVEL 34 MEQ/L (21-32); CHLORIDE LEVEL 99 MEQ/L (98-107); GLOMERULAR FILTRATION RATE > 60.0 (>45); GLUCOSE, FASTING 122 MG/DL (70-100); MAGNESIUM LEVEL 1.9 MG/DL (1.8-2.4); POTASSIUM SERUM 3.7 MEQ/L (3.5-5.1); SODIUM LEVEL 136 MEQ/L (136-145); TOTAL PROTEIN 6.4 GM/DL (6.4-8.2)
--- NOTE | 2020-04-16 07:49 | REP ---
INDICATION: sob COMPARISON: 04/15/2020 TECHNIQUE: Portable AP view of the chest FINDINGS: Right IJ line with tip in the SVC unchanged. Mediastinum and cardiac silhouette are stable. Tracheostomy is now appreciated. Right lower lobe opacity consistent with consolidation/atelectasis and small pleural effusion again noted and unchanged. Left hemithorax is relatively clear. No pneumothorax. IMPRESSION: 1. Tracheostomy in satisfactory position. 2. Stable right lower lobe opacity suggesting atelectasis/consolidation and small effusion. <Electronically signed by Sarbjit Parnell > 04/16/20 0726
[2020-04-16 08:00] VITALS: BP 119/61
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
[2020-04-16] MEDS: ENOXAPARIN 40MG/0.4ML SYRINGE (J1650 PER 10MG) SC SCH (09:39)
[2020-04-16] MEDS: FUROSEMIDE 20MG/2ML VIAL (J1940) IV SCH (09:39)
[2020-04-16] MEDS: atenoloL 25 MG TAB PO SCH ×2 (09:40→20:36)
[2020-04-16] MEDS: GABAPENTIN 300 MG CAP PO SCH ×3 (09:40→20:36)
[2020-04-16] MEDS: ASPIRIN 81 MG ENTERIC TAB PO SCH (09:40)
[2020-04-16] MEDS: PANTOPRAZOLE 40MG VIAL (C9113 PER 1) IV SCH (09:40)
[2020-04-16] MEDS: DOCUSATE SODIUM 100 MG CAP PO SCH ×2 (09:40→20:36)
[2020-04-16] MEDS: MIDODRINE 5 MG TAB PO SCH ×3 (09:40→17:05)
[2020-04-16] MEDS: HYDROXYCHLOROQUINE 200 MG TAB PO SCH (09:43)
[2020-04-16] MEDS: HumaLOG INSULIN (NovoLOG) PER UNIT SC SCH ×4 (09:43→21:00)
--- NOTE | 2020-04-16 09:44 | RO ---
DATE OF OPERATION: 04/15/2020 PROCEDURE: CENTRAL LINE PROCEDURE NOTE INDICATION: Vasopressor administration. PREPROCEDURE DIAGNOSES: Hypotension, shock. POSTPROCEDURE DIAGNOSES: Hypotension, shock. ATTENDING PHYSICIAN: Dr. Jefferson Consent was obtained from the patient prior to the procedure. Indications, risks and benefits were explained at length. PROCEDURE SUMMARY: A central line insertion practice form was completed by an independent observer. A timeout was performed. Full sterile technique was maintained throughout the procedure including surgical cap, mask with protective eyewear, full gown and sterile gloves. The patient was placed in the Trendelenburg position. The right neck region was prepped using chlorhexidine scrub and draped in a sterile fashion using a full drape and a sterile probe cover employed. The right internal jugular vein was identified using the ultrasound. Anesthesia was achieved through the vein using 1% Lidocaine. Using real time out of plane guidance, the introducer needle was inserted into the internal jugular vein under direct ultrasound visualization. Venous blood was withdrawn. The syringe was removed and the guidewire was advanced into the introducer needle. The introducer needle was removed over the guidewire. A small incision was made at the skin surface with a scalpel and the dilator was exchanged over the guidewire. After appropriate dilation was obtained, the dilator was exchanged with the wire for a triple lumen central venous catheter. The wire was removed and the catheter was sutured in place at 18 cm. A sterile chlorhexidine-impregnated dressing was placed over the catheter at the insertion site. The patient tolerated the procedure without any hemodynamic compromise. At the time of procedure completion, all ports were aspirated and flushed properly. Post-procedure chest x-ray shows the central line in satisfactory position with no pneumothorax. Estimated blood loss is 2 mL. MTDD
[2020-04-16] MEDS: BUPRENORPHINE/NALOXONE 2-0.5MG SUBLINGUAL TABLET(SUBOXONE) SL SCH ×2 (09:51→20:37)
--- NOTE | 2020-04-16 09:59 | ECGEPIP ---
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
[2020-04-16 11:48] LABS: CORTISOL AM 7.4 UG/DL (4.3-22.4)
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
[2020-04-16 12:00] VITALS: BP 114/55
[2020-04-16 12:14] LABS: TROPONIN I < 0.02 NG/ML (< 0.10)
[2020-04-16 16:00] VITALS: BP 112/58
[2020-04-16] MEDS: FUROSEMIDE 40MG/4ML VIAL (J1940) IV SCH (17:04)
[2020-04-16 20:00] VITALS: BP 118/68
[2020-04-16] MEDS: ATORVASTATIN 20 MG TAB PO SCH (20:36)
[2020-04-16] MEDS: DULoxetine 30 MG CAP (CYMBALTA) PO SCH (20:36)
[2020-04-17] VITALS: BP 115/63
[2020-04-17 04:00] VITALS: BP 115/64
[2020-04-17] MEDS: PIPERACILLIN/TAZOBACTAM SOD 4.5 GM in D5W MINI-BAG PLUS 50 ML IV SCH ×2 (04:52→09:38)
[2020-04-17 05:33] LABS: BASO # 0.1 10^3/uL (0.0-0.2); BASO % 0.9 % (0.0-1.0); EOS # 0.6 10^3/uL (0.0-0.5); EOS % 6.6 % (0.0-3.0); HEMATOCRIT 28.6 % (36.0-47.0); HEMOGLOBIN 8.3 g/dl (12.0-15.5); LYMPH # 1.5 10^3/uL (1.5-5.0); LYMPH % 16.4 % (24.0-44.0); MEAN CORPUSCULAR HEMOGLOBIN 24.7 pg (27.0-33.0); MEAN CORPUSCULAR VOLUME 85.1 fl (80.0-96.0); MONO # 1.2 10^3/uL (0.0-0.8); MONO % 13.3 % (0.0-5.0); NEUTROPHILS # 5.6 10^3/uL (1.5-8.5); NEUTROPHILS % 62.2 % (36.0-66.0); PLATELET COUNT, AUTOMATED 316 10^3/uL (150-450); RED BLOOD COUNT 3.36 10^6/uL (4.00-5.40)
[2020-04-17] MEDS: LEVOTHYROXINE 50MCG TABLET (0.05MG) PO SCH (05:40)
[2020-04-17 06:14] LABS: ALBUMIN 2.1 GM/DL (3.2-5.2); ALT/SGPT 9 U/L (12-78); BILIRUBIN,TOTAL 0.4 MG/DL (0.2-1.0); BLOOD UREA NITROGEN 8 MG/DL (7-18); CALCIUM LEVEL 8.3 MG/DL (8.8-10.2); CARBON DIOXIDE LEVEL 35 MEQ/L (21-32); CHLORIDE LEVEL 98 MEQ/L (98-107); CREATININE FOR GFR 0.48 MG/DL (0.55-1.30); GLOMERULAR FILTRATION RATE > 60.0 (>45); GLUCOSE, FASTING 98 MG/DL (70-100); MAGNESIUM LEVEL 1.8 MG/DL (1.8-2.4); POTASSIUM SERUM 3.5 MEQ/L (3.5-5.1); SODIUM LEVEL 135 MEQ/L (136-145); TOTAL PROTEIN 6.5 GM/DL (6.4-8.2)
[2020-04-17] MEDS: HumaLOG INSULIN (NovoLOG) PER UNIT SC SCH ×4 (07:30→21:00)
[2020-04-17 08:00] VITALS: BP 123/72
--- NOTE | 2020-04-17 08:24 | REP ---
INDICATION: sob COMPARISON: 04/16/2020 TECHNIQUE: Portable AP view of the chest FINDINGS: Tracheostomy overlies the airway. Right IJ line with tip in the SVC stable. Mediastinum and cardiac silhouette are stable. Left hemithorax is relatively clear. Chronic elevation to the right hemidiaphragm is again noted along with right lower lobe opacities suggesting elements of atelectasis and possible small pleural reaction. IMPRESSION: Right basilar opacity suggesting atelectasis and small pleural reaction similar to prior examination. <Electronically signed by Sarbjit Parnell > 04/17/20 0829
--- NOTE | 2020-04-17 08:55 | ECHO ---
DATE OF PROCEDURE: 04/14/2020 Age: 64 Gender: Female Height: 165 cm Weight: 132 kg REFERRING PHYSICIAN: Dr. Sommer INDICATION: Dyspnea and hypoxemia. MEASUREMENTS: Aorta 3.5 cm LA 4.3 cm RV 3.4 cm IVS 1.3 cm LV 4.4 cm LVPW 1.3 cm IVC 1.8 cm Mitral E wave velocity 52 Mitral A wave 63 E prime septal 5.4 E prime lateral 7.3 FINDINGS: This study is of somewhat difficult technical quality especially apical windows are rather poor though useful information was obtained. The patient is in sinus rhythm. Left ventricle is of normal size and normal contractility, estimated left ventricular ejection fraction (LVEF) 65% to 70%. No distinct segmental wall abnormalities are appreciated. Right ventricle was poorly visualized, but does not appear grossly enlarged. Left atrium is at least mildly enlarged. The right atrium was poorly seen. The aortic valve is tricuspid. It has mild sclerosis, but mobility is preserved. Mitral, tricuspid, and pulmonic valves appear normal. No pericardial effusion is noted. Inferior vena cava is of normal size and appropriately collapses with inspiration indicative of normal central venous pressure. The aortic root and abdominal aorta appear normal. The aortic arch was not visualized. Doppler interrogation reveals a competent aortic valve. There is trace mitral and trace tricuspid insufficiency. Calculated pulmonary artery pressure is slightly over 40 mmHg corresponding to moderate pulmonary hypertension. Trace pulmonic insufficiency is noted. Mitral inflow and tissue Doppler imaging of the mitral annulus revealed grade 1 diastolic dysfunction. CONCLUSIONS: 1. Study is of fair technical quality, underlying sinus rhythm. 2. Normal left ventricular (LV) size, mild left ventricular hypertrophy (LVH), left ventricular ejection fraction (LVEF) 65% to 70%, grade 1 diastolic dysfunction. 3. No significant valvular disease. 4. Normal central venous pressure and moderate pulmonary hypertension. [facility]
[2020-04-17] MEDS: FUROSEMIDE 40MG/4ML VIAL (J1940) IV SCH (09:38)
[2020-04-17] MEDS: PANTOPRAZOLE 40MG VIAL (C9113 PER 1) IV SCH (09:38)
[2020-04-17] MEDS: ASPIRIN 81 MG ENTERIC TAB PO SCH (09:39)
[2020-04-17] MEDS: GABAPENTIN 300 MG CAP PO SCH ×3 (09:39→21:10)
[2020-04-17] MEDS: MIDODRINE 5 MG TAB PO SCH ×3 (09:39→16:52)
[2020-04-17] MEDS: DOCUSATE SODIUM 100 MG CAP PO SCH ×2 (09:39→21:10)
[2020-04-17] MEDS: HYDROXYCHLOROQUINE 200 MG TAB PO SCH (09:39)
[2020-04-17] MEDS: atenoloL 25 MG TAB PO SCH ×2 (09:40→21:10)
[2020-04-17] MEDS: ENOXAPARIN 40MG/0.4ML SYRINGE (J1650 PER 10MG) SC SCH (09:40)
[2020-04-17] MEDS: BUPRENORPHINE/NALOXONE 2-0.5MG SUBLINGUAL TABLET(SUBOXONE) SL SCH ×2 (10:25→21:14)
[2020-04-17] MEDS ORDERED: IPRATROPIUM 0.5MG/ALBUTEROL 2.5MG INH SOL UD 3ML (DUONEB) NEB ONE (10:30)
[2020-04-17] MEDS ORDERED: IPRATROPIUM 0.5MG/ALBUTEROL 2.5MG INH SOL UD 3ML (DUONEB) NEB PRN (10:30)
[2020-04-17 12:00] VITALS: BP 133/68
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
[2020-04-17 16:00] VITALS: BP 112/58
[2020-04-17] MEDS: FUROSEMIDE 20 MG TAB PO SCH (16:53)
[2020-04-17] MEDS: LevoFLOXacin 750 MG TABLET PO SCH (17:59)
[2020-04-17 20:00] VITALS: BP 123/73
[2020-04-17] MEDS: ATORVASTATIN 20 MG TAB PO SCH (21:10)
[2020-04-17] MEDS: DULoxetine 30 MG CAP (CYMBALTA) PO SCH (21:10)
[2020-04-18] VITALS: BP 107/59
[2020-04-18 04:00] VITALS: BP 126/65
[2020-04-18 05:20] LABS: BASO # 0.1 10^3/uL (0.0-0.2); EOS # 0.5 10^3/uL (0.0-0.5); EOS % 5.1 % (0.0-3.0); HEMATOCRIT 30.3 % (36.0-47.0); HEMOGLOBIN 8.9 g/dl (12.0-15.5); LYMPH # 1.7 10^3/uL (1.5-5.0); LYMPH % 18.4 % (24.0-44.0); MEAN CORPUSCULAR HEMOGLOBIN 25.1 pg (27.0-33.0); MEAN CORPUSCULAR HGB CONC 29.4 g/dl (32.0-36.5); MEAN CORPUSCULAR VOLUME 85.4 fl (80.0-96.0); MONO # 1.3 10^3/uL (0.0-0.8); MONO % 13.6 % (0.0-5.0); NEUTROPHILS # 5.8 10^3/uL (1.5-8.5); NEUTROPHILS % 61.5 % (36.0-66.0); PLATELET COUNT, AUTOMATED 343 10^3/uL (150-450); RED BLOOD COUNT 3.55 10^6/uL (4.00-5.40); WHITE BLOOD COUNT 9.4 10^3/uL (4.0-10.0)
[2020-04-18] MEDS: LEVOTHYROXINE 50MCG TABLET (0.05MG) PO SCH (06:12)
[2020-04-18 06:21] LABS: ALBUMIN 2.3 GM/DL (3.2-5.2); ALT/SGPT 8 U/L (12-78); BILIRUBIN,TOTAL 0.3 MG/DL (0.2-1.0); BLOOD UREA NITROGEN 5 MG/DL (7-18); CALCIUM LEVEL 8.1 MG/DL (8.8-10.2); CARBON DIOXIDE LEVEL 40 MEQ/L (21-32); CHLORIDE LEVEL 95 MEQ/L (98-107); GLOMERULAR FILTRATION RATE > 60.0 (>45); GLUCOSE, FASTING 89 MG/DL (70-100); MAGNESIUM LEVEL 1.7 MG/DL (1.8-2.4); NT-PRO BNP 443 PG/ML (<125); POTASSIUM SERUM 3.4 MEQ/L (3.5-5.1); SODIUM LEVEL 139 MEQ/L (136-145); TOTAL PROTEIN 6.2 GM/DL (6.4-8.2)
[2020-04-18] MEDS: HumaLOG INSULIN (NovoLOG) PER UNIT SC SCH ×4 (07:30→20:44)
[2020-04-18 08:00] VITALS: BP 122/70
--- NOTE | 2020-04-18 08:00 | REP ---
INDICATION: sob COMPARISON: 04/17/2020 TECHNIQUE: Portable AP view of the chest FINDINGS: Right lower lobe opacity suggesting areas of consolidation/atelectasis and pleural effusion are similar to prior examination although slight progression of disease cannot be excluded. Remainder of lung blair are relatively stable/clear. Previously noted right IJ line has been removed. No pneumothorax. IMPRESSION: Right lower lobe opacities suggesting consolidation/atelectasis and effusion similar to prior examination although slight progression cannot be excluded. Previous right IJ line removed. No pneumothorax. <Electronically signed by Sarbjit Parnell > 04/18/20 0758
[2020-04-18] MEDS: ENOXAPARIN 40MG/0.4ML SYRINGE (J1650 PER 10MG) SC SCH (09:29)
[2020-04-18] MEDS: GABAPENTIN 300 MG CAP PO SCH ×3 (09:29→20:43)
[2020-04-18] MEDS: ASPIRIN 81 MG ENTERIC TAB PO SCH (09:30)
[2020-04-18] MEDS: BUPRENORPHINE/NALOXONE 2-0.5MG SUBLINGUAL TABLET(SUBOXONE) SL SCH ×2 (09:30→20:44)
[2020-04-18] MEDS: FUROSEMIDE 20 MG TAB PO SCH ×2 (09:30→17:50)
[2020-04-18] MEDS: PANTOPRAZOLE 40MG TAB (PROTONIX) PO SCH (09:30)
[2020-04-18] MEDS: DOCUSATE SODIUM 100 MG CAP PO SCH ×2 (09:30→20:43)
[2020-04-18] MEDS: MIDODRINE 5 MG TAB PO SCH ×3 (09:30→17:50)
[2020-04-18] MEDS: HYDROXYCHLOROQUINE 200 MG TAB PO SCH (09:30)
[2020-04-18] MEDS: atenoloL 25 MG TAB PO SCH ×2 (09:31→20:44)
[2020-04-18 12:00] VITALS: BP 134/75
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
[2020-04-18] MEDS ORDERED: FURO40TA2 PO (12:23)
[2020-04-18] MEDS ORDERED: MIDO5TA PO (12:23)
[2020-04-18] MEDS ORDERED: LEVO750T13 PO (12:23)
[2020-04-18] MEDS ORDERED: LEVO50TA5 PO (12:23)
[2020-04-18] MEDS ORDERED: SLF 3 ML SYR IV PRN (15:30)
[2020-04-18] MEDS: LevoFLOXacin 750 MG TABLET PO SCH (17:50)
[2020-04-18 19:07] LABS: BODY FLUID CULTURE Not indicated. (.); LEGIONELLA ANTIGEN URINE Negative (Negative); ORGANISM ID Not indicated. (.); SPECIMEN SOURCE Urine (.); URINE STREP PNEUMONIAE ANTIGEN Negative (Negative)
[2020-04-18 20:31] VITALS: BP 126/80
[2020-04-18] MEDS: DULoxetine 30 MG CAP (CYMBALTA) PO SCH (20:44)
[2020-04-18] MEDS: ATORVASTATIN 20 MG TAB PO SCH (20:44)
[2020-04-18] MEDS: SLF 3 ML SYR IV SCH (20:45)
[2020-04-19 04:47] LABS: BASO # 0.1 10^3/uL (0.0-0.2); BASO % 0.9 % (0.0-1.0); EOS # 0.5 10^3/uL (0.0-0.5); EOS % 5.3 % (0.0-3.0); HEMOGLOBIN 9.3 g/dl (12.0-15.5); LYMPH # 1.9 10^3/uL (1.5-5.0); LYMPH % 18.3 % (24.0-44.0); MEAN CORPUSCULAR HEMOGLOBIN 24.7 pg (27.0-33.0); MEAN CORPUSCULAR HGB CONC 29.1 g/dl (32.0-36.5); MEAN CORPUSCULAR VOLUME 85.1 fl (80.0-96.0); MONO # 1.4 10^3/uL (0.0-0.8); MONO % 13.7 % (0.0-5.0); NEUTROPHILS # 6.2 10^3/uL (1.5-8.5); PLATELET COUNT, AUTOMATED 386 10^3/uL (150-450); RED BLOOD COUNT 3.76 10^6/uL (4.00-5.40); WHITE BLOOD COUNT 10.1 10^3/uL (4.0-10.0)
[2020-04-19 05:17] LABS: ALBUMIN 2.4 GM/DL (3.2-5.2); ALT/SGPT 8 U/L (12-78); BILIRUBIN,TOTAL 0.3 MG/DL (0.2-1.0); BLOOD UREA NITROGEN 4 MG/DL (7-18); CALCIUM LEVEL 8.5 MG/DL (8.8-10.2); CARBON DIOXIDE LEVEL 41 MEQ/L (21-32); CHLORIDE LEVEL 93 MEQ/L (98-107); CREATININE FOR GFR 0.46 MG/DL (0.55-1.30); GLOMERULAR FILTRATION RATE > 60.0 (>45); GLUCOSE, FASTING 94 MG/DL (70-100); MAGNESIUM LEVEL 1.6 MG/DL (1.8-2.4); POTASSIUM SERUM 3.2 MEQ/L (3.5-5.1); SODIUM LEVEL 137 MEQ/L (136-145); TOTAL PROTEIN 6.9 GM/DL (6.4-8.2)
[2020-04-19] MEDS: LEVOTHYROXINE 50MCG TABLET (0.05MG) PO SCH (06:35)
[2020-04-19] MEDS: SLF 3 ML SYR IV SCH ×2 (06:36→11:49)
[2020-04-19] MEDS: HumaLOG INSULIN (NovoLOG) PER UNIT SC SCH ×2 (07:18→11:49)
[2020-04-19 08:00] VITALS: BP 131/72
[2020-04-19] MEDS: FUROSEMIDE 20 MG TAB PO SCH (08:28)
[2020-04-19] MEDS: BUPRENORPHINE/NALOXONE 2-0.5MG SUBLINGUAL TABLET(SUBOXONE) SL SCH (08:28)
[2020-04-19] MEDS: ENOXAPARIN 40MG/0.4ML SYRINGE (J1650 PER 10MG) SC SCH (08:28)
[2020-04-19] MEDS: ASPIRIN 81 MG ENTERIC TAB PO SCH (08:28)
[2020-04-19 08:29] VITALS: BP 131/72
[2020-04-19] MEDS: HYDROXYCHLOROQUINE 200 MG TAB PO SCH (08:29)
[2020-04-19] MEDS: PANTOPRAZOLE 40MG TAB (PROTONIX) PO SCH (08:29)
[2020-04-19] MEDS: DOCUSATE SODIUM 100 MG CAP PO SCH (08:29)
[2020-04-19] MEDS: GABAPENTIN 300 MG CAP PO SCH (08:29)
[2020-04-19] MEDS: atenoloL 25 MG TAB PO SCH (08:29)
[2020-04-19] MEDS: MIDODRINE 5 MG TAB PO SCH ×2 (08:30→11:48)
== END 2020-04-19 16:00 | disposition home health service (06) | DRG 194 ==
LOC: EDBD 11:34 → M ED 11:34 → EDSEX 11:34 → M ED INP 15:13 → ENRESERV 15:28 → M ICU 17:04 → M PCU 04-15 19:51
PROVIDERS: ADMIT Family Medicine; ATTEND Family Medicine
PROC: 02HV33Z Insertion of Infusion Device into Superior Vena Cava, Percutaneous Approach (ICD-10-PCS; principal; 2020-04-15)
DX: I11.0 Hypertensive heart disease with heart failure (principal); J96.21 Acute and chronic respiratory failure with hypoxia; L89.154 Pressure ulcer of sacral region, stage 4; J96.12 Chronic respiratory failure with hypercapnia; J18.9 Pneumonia, unspecified organism; L89.310 Pressure ulcer of right buttock, unstageable; J90 Pleural effusion, not elsewhere classified; Z93.0 Tracheostomy status; I95.9 Hypotension, unspecified; G82.20 Paraplegia, unspecified; E11.40 Type 2 diabetes mellitus with diabetic neuropathy, unspecified; Z99.81 Dependence on supplemental oxygen; I50.33 Acute on chronic diastolic (congestive) heart failure; E66.01 Morbid (severe) obesity due to excess calories; Z68.42 Body mass index [BMI] 45.0-49.9, adult; N31.9 Neuromuscular dysfunction of bladder, unspecified; K59.00 Constipation, unspecified; N39.0 Urinary tract infection, site not specified; Z20.828 Contact with and (suspected) exposure to other viral communicable diseases; E03.9 Hypothyroidism, unspecified; Z86.14 Personal history of Methicillin resistant Staphylococcus aureus infection; Z79.82 Long term (current) use of aspirin; Z79.899 Other long term (current) drug therapy

== ENCOUNTER 2020-05-10 13:10 | Inpatient (IN) | payer OTHER ==
[~2020-05-10] VITALS: Ht 172.7 cm; Wt 144.5 kg
[~2020-05-10 13:10] MED LIST changes: +BISA5TAB72 PO; +FURO40TA2 PO; +LEVO50TA5 PO; +LEVO750T13 PO; +MIDO5TA PO
[2020-05-10 13:58] LABS: BASO # 0.1 10^3/uL (0.0-0.2); BASO % 0.7 % (0.0-1.0); EOS # 0.5 10^3/uL (0.0-0.5); EOS % 2.8 % (0.0-3.0); HEMATOCRIT 30.3 % (36.0-47.0); HEMOGLOBIN 9.1 g/dl (12.0-15.5); LYMPH # 2.1 10^3/uL (1.5-5.0); LYMPH % 12.4 % (24.0-44.0); MEAN CORPUSCULAR VOLUME 83.2 fl (80.0-96.0); MONO # 1.6 10^3/uL (0.0-0.8); MONO % 9.4 % (0.0-5.0); NEUTROPHILS # 12.3 10^3/uL (1.5-8.5); NEUTROPHILS % 74.2 % (36.0-66.0); PLATELET COUNT, AUTOMATED 447 10^3/uL (150-450); RED BLOOD COUNT 3.64 10^6/uL (4.00-5.40); WHITE BLOOD COUNT 16.5 10^3/uL (4.0-10.0)
[2020-05-10] MEDS ORDERED: LEVO50TA45 PO (14:15)
[2020-05-10] MEDS ORDERED: METO5TAB2 PO (14:15)
[2020-05-10] MEDS ORDERED: MIDO5TA PO (14:15)
[2020-05-10] MEDS ORDERED: PRED10TA2 PO (14:15)
[2020-05-10] MEDS ORDERED: FURO40TA2 PO (14:15)
[2020-05-10 14:30] LABS: BLOOD UREA NITROGEN 12 MG/DL (7-18); CALCIUM LEVEL 8.1 MG/DL (8.8-10.2); CARBON DIOXIDE LEVEL 40 MEQ/L (21-32); CHLORIDE LEVEL 93 MEQ/L (98-107); CREATININE FOR GFR 0.55 MG/DL (0.55-1.30); GLOMERULAR FILTRATION RATE > 60.0 (>45); GLUCOSE, FASTING 108 MG/DL (70-100); POTASSIUM SERUM 3.2 MEQ/L (3.5-5.1); SODIUM LEVEL 137 MEQ/L (136-145)
[2020-05-10] MEDS ORDERED: VANCOMYCIN HCL 2,000 MG in D5W 500 ML IV ONE (14:45)
[2020-05-10] MEDS ORDERED: NS 1,000 ML IV SCH (14:45)
[2020-05-10] MEDS ORDERED: VANCOMYCIN HCL 1,000 MG, VIAL MATE ADAPTER 1 EACH in D5W 250 ML IV ONE ×6 (15:00)
[2020-05-10] MEDS ORDERED: MIRALAX *UNIT DOSE* 17GM PACKET PO PRN (15:45)
[2020-05-10] MEDS ORDERED: NYSTATIN 100,000 UNITS/GM TOPICAL PWD 15 GM TOP PRN (15:45)
[2020-05-10] MEDS ORDERED: IPRATROPIUM 0.5MG/ALBUTEROL 2.5MG INH SOL UD 3ML (DUONEB) NEB PRN (15:45)
[2020-05-10] MEDS ORDERED: BISACODYL 5 MG TAB PO PRN (15:45)
[2020-05-10] MEDS ORDERED: PIPERACILLIN/TAZOBACTAM SOD 4.5 GM in D5W MINI-BAG PLUS 50 ML IV ONE (17:15)
--- NOTE | 2020-05-10 17:17 | REPVR ---
PROCEDURE INFORMATION: Exam: CT Neck Without Contrast Exam date and time: 05/10/2020 4:55 PM Age: 64 years old Clinical indication: Mass, lump, or swelling in neck; Additional info: Puffy with purulent trach secretions, R/O collection TECHNIQUE: Imaging protocol: Computed tomography images of the neck without contrast. Radiation optimization: All CT scans at this facility use at least one of these dose optimization techniques: automated exposure control; mA and/or kV adjustment per patient size (includes targeted exams where dose is matched to clinical indication); or iterative reconstruction. COMPARISON: CT Spine,cervical w/o contrast 05/30/2019 3:50 AM FINDINGS: Nasopharynx: Unremarkable. Oropharynx: Mild thickening of the tonsillar pillars bilaterally suggesting mild palatine tonsillar enlargement. Hypopharynx: Unremarkable. Larynx: Unremarkable. Normal epiglottis. Retropharyngeal space: Unremarkable. Submandibular/Parotid glands: Normal. Glands are normal in size. Thyroid: Normal. No enlarged or calcified nodules. Lymph nodes: Jugulodigastric lymph nodes measure up to 1.2 cm on the right 1 cm on the left. Multiple smaller cervical chain lymphadenopathy demonstrated bilaterally, left greater than right. Trachea: Tracheostomy tube demonstrated. Lungs: Unremarkable as visualized. Bones/joints: The cervical spine demonstrates moderate degenerative changes. Posterior interbody fusion of the thoracic spine beginning at T2 using transpedicular screws and metallic rods. Soft tissues: Unremarkable. No significant soft tissue swelling. IMPRESSION: 1. Mild thickening of the tonsillar pillars bilaterally suggesting mild palatine tonsillar enlargement. 2. Tracheostomy tube demonstrated. 3. Jugulodigastric lymph nodes measure up to 1.2 cm on the right 1 cm on the left. Multiple smaller cervical chain lymphadenopathy demonstrated bilaterally, left greater than right. Electronically signed by: Angel Caballreo On 05/10/2020 17:16:42 PM
--- NOTE | 2020-05-10 17:23 | REPVR ---
PROCEDURE INFORMATION: Exam: CT Pelvis Without Contrast Exam date and time: 05/10/2020 4:55 PM Age: 64 years old Clinical indication: Other: Puffy with purulent trach secretions, R/O collection TECHNIQUE: Imaging protocol: Computed tomography images of the pelvis without contrast. Radiation optimization: All CT scans at this facility use at least one of these dose optimization techniques: automated exposure control; mA and/or kV adjustment per patient size (includes targeted exams where dose is matched to clinical indication); or iterative reconstruction. COMPARISON: CT ABD/PEL W/IV CONTRAST ONLY 02/20/2020 3:46 PM FINDINGS: Stomach and bowel: Impacted feces demonstrated in the rectosigmoid with increased feces demonstrated in the sigmoid and visualized right and left colon. Findings consistent with constipation with fecal impaction. Mild diverticulosis is present in the distal colon. No diverticulitis. Appendix: No evidence of appendicitis. Intraperitoneal space: Unremarkable. No free air. No significant fluid collection. Lymph nodes: Unremarkable. No enlarged lymph nodes. Urinary bladder: Wood catheter within a collapsed urinary bladder. Air within the bladder likely iatrogenic. Diffuse thickening of the bladder wall likely related to incomplete distention. Reproductive: Normal as visualized. Bones/joints: Severe central spinal stenosis at L2-L3, moderate to severe central spinal stenosis at L3-L4 and L4-L5. Posterior disc osteophyte complex at L5-S1. Mild bilateral facet joint arthropathy L5-S1. Deformity in the contour of the mid coccyx may be secondary to a and age-indeterminate fracture. Osteoporosis. Soft tissues: There is soft tissue edema demonstrated in the lower lateral abdominal wall, buttock regions consistent with anasarca. Sacral decubitus ulcer measuring 4.1 x 6.1 x 8.5 cm demonstrated extending from the posterior sacral margin to the cutaneous surface containing fluid with numerous gas bubbles consistent with an abscess. Soft tissue density mass located between the posterior margin of the anorectal junction and a decubitus ulcer measuring 4.9 x 2.9 x 4.4 cm demonstrated. Unclear if this is a portion of the abscess or represents a mass of other etiology. IMPRESSION: 1. Anasarca. 2. Sacral decubitus ulcer measuring 4.1 x 6.1 x 8.5 cm demonstrated extending from the posterior sacral margin to the cutaneous surface containing fluid with numerous gas bubbles consistent with an abscess. 3. Soft tissue density mass located between the posterior margin of the anorectal junction and a decubitus ulcer measuring 4.9 x 2.9 x 4.4 cm demonstrated. Unclear if this is a portion of the abscess or represents a mass of other etiology. 4. Impacted feces demonstrated in the rectosigmoid with increased feces demonstrated in the sigmoid and visualized right and left colon. Findings consistent with constipation with fecal impaction. 5. Mild diverticulosis is present in the distal colon. No diverticulitis. Electronically signed by: Angel Caballero On 05/10/2020 17:23:28 PM
--- NOTE | 2020-05-10 17:24 | REP ---
INDICATION: hypoxemia. COMPARISON: Comparison portable chest x-ray April 18, 2020.. TECHNIQUE: Semi-erect AP portable exam. FINDINGS: Patient is rotated slightly to the right. Extensive upper thoracic spine fusion metallic hardware is seen. Tracheostomy tube is seen in good position. There is a bandlike density in the right mid lung field consistent with discoid atelectasis. This was present previously and may be chronic. Right hemidiaphragm is somewhat elevated. Pleural angles are sharp. No other abnormal pulmonary parenchymal opacity is seen. Multiple old healed rib fractures are noted on the left. The heart is enlarged. IMPRESSION: Cardiomegaly and elevated right hemidiaphragm with a bandlike density in the right mid lung field consistent with chronic atelectasis. Status post thoracic spine fusion. Tracheostomy tube in good position. No acute infiltrate is appreciated. <Electronically signed by Mario Winslow > 05/10/20 [id number]
[2020-05-10 17:30] VITALS: BP 114/57
[2020-05-10] MEDS: GABAPENTIN 300 MG CAP PO SCH ×2 (18:03→20:32)
[2020-05-10] MEDS: PIPERACILLIN/TAZOBACTAM SOD 4.5 GM in D5W MINI-BAG PLUS 50 ML IV SCH ×2 (18:03→23:43)
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
[2020-05-10] MEDS ORDERED: POTASSIUM CHLORIDE 10 MEQ SR TABLET PO ONE (19:30)
[2020-05-10] MEDS: ATORVASTATIN 20 MG TAB PO SCH (20:32)
[2020-05-10] MEDS: DOCUSATE SODIUM 100MG CAPSULE PO SCH (20:32)
[2020-05-10] MEDS: METOCLOPRAMIDE 5 MG TAB PO SCH (20:32)
[2020-05-10] MEDS: SENNA 8.6 MG TAB (SENOKOT) PO SCH (20:32)
[2020-05-10] MEDS ORDERED: atenoloL 25 MG TAB PO SCH (21:00)
[2020-05-10 22:00] VITALS: BP 117/51
[2020-05-10] MEDS ORDERED: traMADol 50 MG TAB PO ONE (22:15)
[2020-05-10] MEDS: RAMELTEON 8 MG TAB (ROZEREM) PO PRN (22:21)
[2020-05-11] VITALS (8 sets, daily range): BP systolic 112–132; BP diastolic 48–91; O2SAT 97
[2020-05-11] MEDS: VANCOMYCIN HCL 1,000 MG, VIAL MATE ADAPTER 1 EACH in D5W 250 ML IV SCH ×2 (01:30→14:06)
[2020-05-11] MEDS: ACETAMINOPHEN 325 MG TAB PO PRN ×2 (02:52→23:14)
[2020-05-11] MEDS: PIPERACILLIN/TAZOBACTAM SOD 4.5 GM in D5W MINI-BAG PLUS 50 ML IV SCH ×4 (05:59→23:13)
[2020-05-11] MEDS: LEVOTHYROXINE 50MCG TABLET (0.05MG) PO SCH (05:59)
[2020-05-11 07:04] LABS: HEMATOCRIT 27.7 % (36.0-47.0); HEMOGLOBIN 8.4 g/dl (12.0-15.5); MEAN CORPUSCULAR HEMOGLOBIN 24.9 pg (27.0-33.0); MEAN CORPUSCULAR HGB CONC 30.3 g/dl (32.0-36.5); PLATELET COUNT, AUTOMATED 403 10^3/uL (150-450); RED BLOOD COUNT 3.38 10^6/uL (4.00-5.40); WHITE BLOOD COUNT 15.4 10^3/uL (4.0-10.0)
[2020-05-11 07:30] LABS: BLOOD UREA NITROGEN 11 MG/DL (7-18); CALCIUM LEVEL 8.3 MG/DL (8.8-10.2); CARBON DIOXIDE LEVEL 38 MEQ/L (21-32); CHLORIDE LEVEL 95 MEQ/L (98-107); CREATININE FOR GFR 0.53 MG/DL (0.55-1.30); GLOMERULAR FILTRATION RATE > 60.0 (>45); GLUCOSE, FASTING 93 MG/DL (70-100); MAGNESIUM LEVEL 1.8 MG/DL (1.8-2.4); POTASSIUM SERUM 3.2 MEQ/L (3.5-5.1); SODIUM LEVEL 136 MEQ/L (136-145)
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
[2020-05-11] MEDS ORDERED: POTASSIUM CHLORIDE 10 MEQ SR TABLET PO ONE (08:00)
[2020-05-11] MEDS ORDERED: BUPRENORPHINE/NALOXONE 2-0.5MG SUBLINGUAL TABLET(SUBOXONE) SL SCH (10:15)
[2020-05-11] MEDS: MIDODRINE 5 MG TAB PO SCH ×3 (10:27→17:31)
[2020-05-11] MEDS: ENOXAPARIN 40MG/0.4ML SYRINGE (J1650 PER 10MG) SC SCH (10:35)
[2020-05-11] MEDS: GABAPENTIN 300 MG CAP PO SCH ×3 (10:39→21:45)
[2020-05-11] MEDS: ASPIRIN 81 MG ENTERIC TAB PO SCH (10:40)
[2020-05-11] MEDS: DOCUSATE SODIUM 100MG CAPSULE PO SCH ×2 (10:40→21:44)
[2020-05-11] MEDS: METOCLOPRAMIDE 5 MG TAB PO SCH ×2 (10:40→21:44)
[2020-05-11] MEDS: DULoxetine 30 MG CAP (CYMBALTA) PO SCH (10:40)
[2020-05-11] MEDS: MELOXICAM (MOBIC) 7.5 MG TAB PO SCH (10:40)
[2020-05-11] MEDS ORDERED: MIDAZOLAM INJ 2MG/2ML VIAL (J2250 PER 1MG) As Ordered ONE (12:28)
[2020-05-11] MEDS ORDERED: fentaNYL 100 MCG/2 ML INJECTION (J3010) As Ordered ONE (12:28)
[2020-05-11] MEDS ORDERED: propofoL 200 MG/20 ML VIAL As Ordered ONE ×3 (13:08→15:38)
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
[2020-05-11] MEDS ORDERED: BUPIVACAINE HCL 0.25% 10ML VIAL As Ordered ONE (14:35)
[2020-05-11] MEDS ORDERED: LIDOCAINE W/EPINEPHRINE 1% 20ML VIAL As Ordered ONE (14:35)
[2020-05-11] MEDS ORDERED: THROMBIN SOLN 20,000 UNITS KIT As Ordered ONE (14:53)
[2020-05-11] MEDS ORDERED: KETAMINE HCL 200 MG/20 ML VIAL As Ordered ONE (15:04)
--- NOTE | 2020-05-11 15:59 | ROOPDOC ---
[facility] Report Of Operation Report of Operation DATE OF PROCEDURE: 05/11/20 PREPROCEDURE DIAGNOSES: infected sacro-coccygeal decubiti ulcer (15 x 8 x 7 cms). POSTPROCEDURE DIAGNOSES: same. PROCEDURE: Excisional debridement of necrotic tissues, drainage of small pocket of abscess sacal-coccygeal decubit ulcer. SURGEON: Bg Crenshaw MD CARE INFORMATION ASSOCIATE: ANESTHESIA: local (1% lidocaine with epinephrine with 1/4% Marcaine) with Monitored Anesthesia Care. ESTIMATED BLOOD LOSS: Approximately 30 mL. COMPLICATIONS: none. REMARKS: large pressure ulcer on both sides of the midline extending from mid sa janusz to below coccyx (8 cms vertically, 15 cm horizontally, 7 cms depth to the bone) necrotic skin and soft tissue on the left side of the midline, liquefied necrotic foul smelling tissue on the right side with a deeper pocket of abscess drained on opening the necrotic tissue, 2 cms from the top of the anal verge. PROCEDURE NOTE: will reexamine wound thursday will need possible further debridement, will need a colostomy. DESCRIPTION OF PROCEDURE: Patient is on scheduled doses of antibiotics which was continued perioperatively. She was brought to the operating room and placed on the procedure table. Monitoring leads were placed. She was connected to the ventilator via her tracheostomy for her oxygenation. Compression boots placed on both lower extremities were DVT prophylaxis. She came in with an indwelling Wood catheter. This is containing turbid urine. She was placed on the left lateral decubitus position on a beanbag to secure her to the procedure table nylon tapes and belts used to secure her. A shoulder roll was placed underneath her left axilla. She has a large sacral wound measuring 15 x 8 about a 7 cm depth at its deepest covered with slough off, necrotic fibrinous tissue as well as necrotic subcutaneous tissue as well as purulent drainage. There is very minimal skin erythema. This area and the surrounding skin was prepped and draped in the usual sterile fashion.We paused for a surgical timeout using both pre- incision safety checklist to verify correct patient, procedure site and additional clinical information prior to beginning the procedure. I injected liberally combination of 1% lidocaine and 1/4% Marcaine the surrounding subcutaneous tissue. Using a 10 blade knife as well as monopolar cautery excisional debridement was done sequentially to the necrotic skin, then the liquefied fatty tissue and necrotic subcutaneous tissue and finally the fibrous tissue surrounding the sacrum as well as the coccyx. There is about a 3 cm undermining between the 8:00 to the 12 o'clock position on the right side this is also containing necrotic tissue with foul smell. As I debrided today liquefied and necrotic subcutaneous tissue I got into a pocket of purulent fluid within the muscle tissue which I removed. Overlying fascia which was also necrotic was also removed. This was irrigated with saline and then I resumed debridement also used to the cautery pad as a curette to debride loose and lique fied tissue off the healthy tissues. Again I have irrigated the area and I was still not satisfied specially over the left side where there was only minimal oozing. I will temporarily packed this for a while and on removal of the subcutaneous tissue over the area remains dusky so I proceeded going deeper and eventually got down to the bone over this area. Again after irrigating and temporarily packing I checked for adequate hemostasis I placed thrombin spray to aid with the hemostasis. The left side subcutaneous tissue as mentioned has mildly pale fat tissue but no longer foul smelling. The undermining over the right side increased to about 5 cm. The depth of the tissue is to the bone at about 10 cm. Overall external dimension of the sacral wound is just about the same. I am about 2 cm from the anal verge. I tried to get this to seal with DuoDERM but this would not be amenable to placement of a wound VAC due to its location and near intimate association with the anal verge. The anal sphincter is very lax and I could feel some hard stools within that area. At this point I just packed the wound with drop attacks and place a moist gauze and top of the drop attacks and placed a PD pad and OptiForm to observe the drainage. This was held in place with a postop underwear. Patient tolerated the procedure well she was hemodynamically stable. [facility] and brought to the recovery room in stable condition. BG CRENSHAW MD May 11, 2020 15:59
[2020-05-11] MEDS ORDERED: oxyCODONE 5MG TAB PO PRN (16:00)
[2020-05-11] MEDS ORDERED: LR 1,000 ML IV SCH (16:00)
[2020-05-11] MEDS ORDERED: fentaNYL 100 MCG/2 ML INJECTION (J3010) IV PRN (16:00)
[2020-05-11] MEDS ORDERED: ONDANSETRON 4MG/2ML VIAL IV PRN (16:00)
[2020-05-11] MEDS: ATORVASTATIN 20 MG TAB PO SCH (21:44)
[2020-05-11] MEDS: SENNA 8.6 MG TAB (SENOKOT) PO SCH (21:45)
[2020-05-12] MEDS: VANCOMYCIN HCL 1,000 MG, VIAL MATE ADAPTER 1 EACH in D5W 250 ML IV SCH ×2 (01:09→13:20)
[2020-05-12 02:00] VITALS: BP 104/51
[2020-05-12 06:00] VITALS: BP 103/46
[2020-05-12] MEDS: LEVOTHYROXINE 50MCG TABLET (0.05MG) PO SCH (06:04)
[2020-05-12] MEDS: PIPERACILLIN/TAZOBACTAM SOD 4.5 GM in D5W MINI-BAG PLUS 50 ML IV SCH ×4 (06:04→23:28)
[2020-05-12 06:26] LABS: HEMOGLOBIN 7.8 g/dl (12.0-15.5); MEAN CORPUSCULAR HEMOGLOBIN 23.8 pg (27.0-33.0); MEAN CORPUSCULAR HGB CONC 28.9 g/dl (32.0-36.5); MEAN CORPUSCULAR VOLUME 82.3 fl (80.0-96.0); PLATELET COUNT, AUTOMATED 436 10^3/uL (150-450); RED BLOOD COUNT 3.28 10^6/uL (4.00-5.40); WHITE BLOOD COUNT 14.7 10^3/uL (4.0-10.0)
[2020-05-12 06:39] LABS: BLOOD UREA NITROGEN 10 MG/DL (7-18); CALCIUM LEVEL 8.1 MG/DL (8.8-10.2); CARBON DIOXIDE LEVEL 36 MEQ/L (21-32); CHLORIDE LEVEL 95 MEQ/L (98-107); CREATININE FOR GFR 0.46 MG/DL (0.55-1.30); GLOMERULAR FILTRATION RATE > 60.0 (>45); GLUCOSE, FASTING 91 MG/DL (70-100); POTASSIUM SERUM 3.6 MEQ/L (3.5-5.1); SODIUM LEVEL 139 MEQ/L (136-145)
[2020-05-12] MEDS: ASPIRIN 81 MG ENTERIC TAB PO SCH (08:41)
[2020-05-12] MEDS: DULoxetine 30 MG CAP (CYMBALTA) PO SCH (08:41)
[2020-05-12] MEDS: GABAPENTIN 300 MG CAP PO SCH ×3 (08:42→21:44)
[2020-05-12] MEDS: DOCUSATE SODIUM 100MG CAPSULE PO SCH ×2 (08:42→21:45)
[2020-05-12] MEDS: METOCLOPRAMIDE 5 MG TAB PO SCH ×2 (08:42→21:45)
[2020-05-12] MEDS: MIDODRINE 5 MG TAB PO SCH ×3 (08:42→16:44)
[2020-05-12] MEDS: MELOXICAM (MOBIC) 7.5 MG TAB PO SCH (08:42)
[2020-05-12] MEDS: ACETAMINOPHEN 325 MG TAB PO PRN (08:44)
[2020-05-12 10:00] VITALS: BP 131/60
[2020-05-12] MEDS ORDERED: oxyCODONE 5MG TAB PO PRN (10:00)
[2020-05-12] MEDS: ENOXAPARIN 40MG/0.4ML SYRINGE (J1650 PER 10MG) SC SCH (11:46)
[2020-05-12] MEDS: traMADol 50 MG TAB PO PRN (12:14)
[2020-05-12 14:00] VITALS: BP 138/65
[2020-05-12] MEDS: methocarbamoL 500 MG TAB PO PRN (14:43)
[2020-05-12] MEDS: oxyCODONE 5MG TAB PO PRN (15:33)
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
[2020-05-12 18:00] VITALS: BP 137/64
[2020-05-12] MEDS: ATORVASTATIN 20 MG TAB PO SCH (21:43)
[2020-05-12] MEDS: SENNA 8.6 MG TAB (SENOKOT) PO SCH (21:45)
[2020-05-12 22:00] VITALS: BP 156/75
[2020-05-13] MEDS: oxyCODONE 5MG TAB PO PRN ×3 (00:25→16:57)
[2020-05-13] MEDS: VANCOMYCIN HCL 1,000 MG, VIAL MATE ADAPTER 1 EACH in D5W 250 ML IV SCH ×2 (00:43→14:12)
[2020-05-13] MEDS: PIPERACILLIN/TAZOBACTAM SOD 4.5 GM in D5W MINI-BAG PLUS 50 ML IV SCH ×4 (05:27→23:50)
[2020-05-13] MEDS: LEVOTHYROXINE 50MCG TABLET (0.05MG) PO SCH (05:30)
[2020-05-13 06:00] VITALS: BP 119/65
[2020-05-13 06:43] LABS: HEMATOCRIT 28.2 % (36.0-47.0); HEMOGLOBIN 8.3 g/dl (12.0-15.5); MEAN CORPUSCULAR HEMOGLOBIN 24.3 pg (27.0-33.0); MEAN CORPUSCULAR HGB CONC 29.4 g/dl (32.0-36.5); MEAN CORPUSCULAR VOLUME 82.7 fl (80.0-96.0); PLATELET COUNT, AUTOMATED 457 10^3/uL (150-450); RED BLOOD COUNT 3.41 10^6/uL (4.00-5.40); WHITE BLOOD COUNT 11.3 10^3/uL (4.0-10.0)
[2020-05-13 07:10] LABS: BLOOD UREA NITROGEN 7 MG/DL (7-18); CARBON DIOXIDE LEVEL 40 MEQ/L (21-32); CHLORIDE LEVEL 94 MEQ/L (98-107); CREATININE FOR GFR 0.59 MG/DL (0.55-1.30); GLOMERULAR FILTRATION RATE > 60.0 (>45); GLUCOSE, FASTING 88 MG/DL (70-100); POTASSIUM SERUM 3.7 MEQ/L (3.5-5.1); SODIUM LEVEL 137 MEQ/L (136-145)
[2020-05-13 07:11] LABS: CALCIUM LEVEL 8.7 MG/DL (8.8-10.2)
[2020-05-13] MEDS: GABAPENTIN 300 MG CAP PO SCH ×3 (08:15→20:34)
[2020-05-13] MEDS: MELOXICAM (MOBIC) 7.5 MG TAB PO SCH (08:16)
[2020-05-13] MEDS: ASPIRIN 81 MG ENTERIC TAB PO SCH (08:16)
[2020-05-13] MEDS: DOCUSATE SODIUM 100MG CAPSULE PO SCH ×2 (08:16→20:35)
[2020-05-13] MEDS: DULoxetine 30 MG CAP (CYMBALTA) PO SCH (08:16)
[2020-05-13] MEDS: METOCLOPRAMIDE 5 MG TAB PO SCH ×2 (08:16→20:35)
[2020-05-13] MEDS: MIDODRINE 5 MG TAB PO SCH ×3 (08:16→16:56)
[2020-05-13 10:00] VITALS: BP 113/56
[2020-05-13] MEDS: ENOXAPARIN 40MG/0.4ML SYRINGE (J1650 PER 10MG) SC SCH (12:13)
[2020-05-13 14:00] VITALS: BP 134/64
[2020-05-13] MEDS: methocarbamoL 500 MG TAB PO PRN (17:42)
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
[2020-05-13 18:00] VITALS: BP 135/64
[2020-05-13] MEDS: SENNA 8.6 MG TAB (SENOKOT) PO SCH (20:34)
[2020-05-13] MEDS: ATORVASTATIN 20 MG TAB PO SCH (20:35)
[2020-05-13 22:00] VITALS: BP 156/93
[2020-05-14] MEDS: VANCOMYCIN HCL 1,000 MG, VIAL MATE ADAPTER 1 EACH in D5W 250 ML IV SCH ×2 (01:26→13:50)
[2020-05-14 02:00] VITALS: BP 131/68
[2020-05-14] MEDS: oxyCODONE 5MG TAB PO PRN ×3 (02:26→21:50)
[2020-05-14] MEDS: PIPERACILLIN/TAZOBACTAM SOD 4.5 GM in D5W MINI-BAG PLUS 50 ML IV SCH ×3 (05:52→17:16)
[2020-05-14] MEDS: LEVOTHYROXINE 50MCG TABLET (0.05MG) PO SCH (05:52)
[2020-05-14 06:00] VITALS: BP 169/75
[2020-05-14 06:17] LABS: HEMATOCRIT 26.3 % (36.0-47.0); MEAN CORPUSCULAR HEMOGLOBIN 24.8 pg (27.0-33.0); MEAN CORPUSCULAR HGB CONC 30.4 g/dl (32.0-36.5); MEAN CORPUSCULAR VOLUME 81.7 fl (80.0-96.0); PLATELET COUNT, AUTOMATED 469 10^3/uL (150-450); RED BLOOD COUNT 3.22 10^6/uL (4.00-5.40); WHITE BLOOD COUNT 11.4 10^3/uL (4.0-10.0)
[2020-05-14 06:43] LABS: BLOOD UREA NITROGEN 6 MG/DL (7-18); CALCIUM LEVEL 8.5 MG/DL (8.8-10.2); CARBON DIOXIDE LEVEL 38 MEQ/L (21-32); CHLORIDE LEVEL 97 MEQ/L (98-107); CREATININE FOR GFR 0.52 MG/DL (0.55-1.30); GLOMERULAR FILTRATION RATE > 60.0 (>45); GLUCOSE, FASTING 84 MG/DL (70-100); POTASSIUM SERUM 3.8 MEQ/L (3.5-5.1); SODIUM LEVEL 138 MEQ/L (136-145)
[2020-05-14] MEDS: MIDODRINE 5 MG TAB PO SCH ×3 (08:00→16:00)
[2020-05-14] MEDS: ASPIRIN 81 MG ENTERIC TAB PO SCH (08:47)
[2020-05-14] MEDS: DULoxetine 30 MG CAP (CYMBALTA) PO SCH (08:47)
[2020-05-14] MEDS: METOCLOPRAMIDE 5 MG TAB PO SCH ×2 (08:47→21:51)
[2020-05-14] MEDS: GABAPENTIN 300 MG CAP PO SCH ×3 (08:47→21:49)
[2020-05-14] MEDS: DOCUSATE SODIUM 100MG CAPSULE PO SCH ×2 (08:47→21:50)
[2020-05-14] MEDS: MELOXICAM (MOBIC) 7.5 MG TAB PO SCH (08:47)
[2020-05-14] MEDS: traMADol 50 MG TAB PO PRN ×2 (08:48→17:19)
[2020-05-14] MEDS: methocarbamoL 500 MG TAB PO PRN ×2 (08:54→17:19)
[2020-05-14 10:00] VITALS: BP 152/77
--- NOTE | 2020-05-14 11:10 | IPNPDOC ---
Text Note Date of Service The patient was seen on 05/14/20. NOTE I reexamined Ms. Silveira' wound today. I debrided her infected sacral decubiti last Thursday, currently getting daily dressing changes with vashe and drawtex. On examination, There are more necrotic tissues at the bed at the center and left side of the wound bed, No purulent drainage. The inferior portion of the wound is onlyu 2 cms from the anal verge opening with inflamed/thickened perianal tissues/skin tags surrounding the anal opening. Impression and plan I spoke to her last Thursday about need for a colostomy to divert the stool away from the wound to allow this to heal. On her case, being bed ridden this will be a permanent colostomy. She was hesitant about it last Thursday. Patient is amenable to having a colostomy done this time. She is scheduled for re-debridement of her sacral wound with possible wound vac placement and colostomy placement this . Continue current wound mgt for the meantime. VS,Fishbone, I+O VS, Fishbone, I+O Laboratory Tests 05/14/20 05:41 Vital Signs Date Time Temp Pulse Resp B/P (MAP) Pulse Ox O2 Delivery O2 Flow Rate FiO2 05/14/20 10:00 98.6 77 20 152/77 (102) 98 Trach Collar 5.0 05/13/20 21:00 28 I&O- Last 24 Hours up to 6 AM 05/14/20 05:59 Intake Total 2145 ml Output Total 2150 ml Balance -5 ml KOREY VALADEZ MD May 14, 2020 11:10
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
[2020-05-14 14:00] VITALS: BP 147/78
[2020-05-14 18:00] VITALS: BP 147/87
[2020-05-14] MEDS: ATORVASTATIN 20 MG TAB PO SCH (21:49)
[2020-05-14] MEDS: SENNA 8.6 MG TAB (SENOKOT) PO SCH (21:50)
[2020-05-14 22:00] VITALS: BP 149/86
[2020-05-15] MEDS: PIPERACILLIN/TAZOBACTAM SOD 4.5 GM in D5W MINI-BAG PLUS 50 ML IV SCH ×5 (00:06→23:25)
[2020-05-15] MEDS: VANCOMYCIN HCL 1,000 MG, VIAL MATE ADAPTER 1 EACH in D5W 250 ML IV SCH (01:27)
[2020-05-15 02:00] VITALS: BP 126/51
[2020-05-15 06:00] VITALS: BP 149/84
[2020-05-15] MEDS: LEVOTHYROXINE 50MCG TABLET (0.05MG) PO SCH (06:04)
[2020-05-15] MEDS: oxyCODONE 5MG TAB PO PRN ×2 (06:04→14:21)
[2020-05-15 07:16] LABS: HEMOGLOBIN 8.3 g/dl (12.0-15.5); MEAN CORPUSCULAR HGB CONC 30.7 g/dl (32.0-36.5); MEAN CORPUSCULAR VOLUME 81.3 fl (80.0-96.0); PLATELET COUNT, AUTOMATED 472 10^3/uL (150-450); RED BLOOD COUNT 3.32 10^6/uL (4.00-5.40); WHITE BLOOD COUNT 10.4 10^3/uL (4.0-10.0)
[2020-05-15 07:43] LABS: BLOOD UREA NITROGEN 7 MG/DL (7-18); C REACTIVE PROTEIN QUANTITATIV 4.46 MG/DL (0.00-0.30); CALCIUM LEVEL 8.5 MG/DL (8.8-10.2); CARBON DIOXIDE LEVEL 35 MEQ/L (21-32); CHLORIDE LEVEL 99 MEQ/L (98-107); CREATININE FOR GFR 0.44 MG/DL (0.55-1.30); GLOMERULAR FILTRATION RATE > 60.0 (>45); GLUCOSE, FASTING 88 MG/DL (70-100); POTASSIUM SERUM 3.3 MEQ/L (3.5-5.1); SODIUM LEVEL 138 MEQ/L (136-145)
[2020-05-15] MEDS: DOCUSATE SODIUM 100MG CAPSULE PO SCH ×2 (08:31→21:38)
[2020-05-15] MEDS: ASPIRIN 81 MG ENTERIC TAB PO SCH (08:31)
[2020-05-15] MEDS: MIDODRINE 5 MG TAB PO SCH ×3 (08:31→17:52)
[2020-05-15] MEDS: MELOXICAM (MOBIC) 7.5 MG TAB PO SCH (08:31)
[2020-05-15] MEDS: METOCLOPRAMIDE 5 MG TAB PO SCH ×2 (08:31→21:38)
[2020-05-15] MEDS: DULoxetine 30 MG CAP (CYMBALTA) PO SCH (08:31)
[2020-05-15] MEDS: GABAPENTIN 300 MG CAP PO SCH ×3 (08:32→21:37)
[2020-05-15] MEDS: traMADol 50 MG TAB PO PRN ×2 (08:32→21:40)
[2020-05-15 14:00] VITALS: BP 150/80
[2020-05-15] MEDS: VANCOMYCIN HCL 750 MG, VIAL MATE ADAPTER 1 EACH in D5W 250 ML IV SCH (14:21)
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
[2020-05-15] MEDS ORDERED: POTASSIUM CHLORIDE 10 MEQ SR TABLET PO ONE (21:00)
[2020-05-15] MEDS: SENNA 8.6 MG TAB (SENOKOT) PO SCH (21:37)
[2020-05-15] MEDS: ATORVASTATIN 20 MG TAB PO SCH (21:38)
[2020-05-15 22:00] VITALS: BP 162/87
[2020-05-16] MEDS: VANCOMYCIN HCL 750 MG, VIAL MATE ADAPTER 1 EACH in D5W 250 ML IV SCH ×2 (01:57→14:41)
[2020-05-16] MEDS: oxyCODONE 5MG TAB PO PRN ×3 (02:18→20:59)
[2020-05-16 06:00] VITALS: BP 124/62
[2020-05-16] MEDS: LEVOTHYROXINE 50MCG TABLET (0.05MG) PO SCH (06:20)
[2020-05-16] MEDS: PIPERACILLIN/TAZOBACTAM SOD 4.5 GM in D5W MINI-BAG PLUS 50 ML IV SCH ×4 (06:21→23:39)
[2020-05-16 06:42] LABS: BASO # 0.1 10^3/uL (0.0-0.2); EOS # 0.8 10^3/uL (0.0-0.5); EOS % 6.6 % (0.0-3.0); HEMATOCRIT 28.8 % (36.0-47.0); HEMOGLOBIN 8.4 g/dl (12.0-15.5); LYMPH # 2.1 10^3/uL (1.5-5.0); LYMPH % 18.3 % (24.0-44.0); MEAN CORPUSCULAR HGB CONC 29.2 g/dl (32.0-36.5); MEAN CORPUSCULAR VOLUME 82.3 fl (80.0-96.0); MONO # 1.4 10^3/uL (0.0-0.8); NEUTROPHILS # 7.2 10^3/uL (1.5-8.5); NEUTROPHILS % 61.6 % (36.0-66.0); PLATELET COUNT, AUTOMATED 513 10^3/uL (150-450); WHITE BLOOD COUNT 11.7 10^3/uL (4.0-10.0)
[2020-05-16 06:51] LABS: ALBUMIN 1.8 GM/DL (3.2-5.2); ALT/SGPT 8 U/L (12-78); BILIRUBIN,DIRECT < 0.1 MG/DL (0.0-0.2); BILIRUBIN,TOTAL 0.2 MG/DL (0.2-1.0); BLOOD UREA NITROGEN 6 MG/DL (7-18); CALCIUM LEVEL 8.2 MG/DL (8.8-10.2); CARBON DIOXIDE LEVEL 31 MEQ/L (21-32); CHLORIDE LEVEL 100 MEQ/L (98-107); CREATININE FOR GFR 0.55 MG/DL (0.55-1.30); GLOMERULAR FILTRATION RATE > 60.0 (>45); GLUCOSE, FASTING 90 MG/DL (70-100); POTASSIUM SERUM 3.9 MEQ/L (3.5-5.1); SODIUM LEVEL 138 MEQ/L (136-145); TOTAL PROTEIN 6.1 GM/DL (6.4-8.2)
[2020-05-16] MEDS: DOCUSATE SODIUM 100MG CAPSULE PO SCH ×2 (08:37→20:59)
[2020-05-16] MEDS: MELOXICAM (MOBIC) 7.5 MG TAB PO SCH (08:37)
[2020-05-16] MEDS: ASPIRIN 81 MG ENTERIC TAB PO SCH (08:37)
[2020-05-16] MEDS: DULoxetine 30 MG CAP (CYMBALTA) PO SCH (08:38)
[2020-05-16] MEDS: GABAPENTIN 300 MG CAP PO SCH ×3 (08:38→20:59)
[2020-05-16] MEDS: POTASSIUM CHLORIDE 10 MEQ SR TABLET PO SCH (08:38)
[2020-05-16] MEDS: METOCLOPRAMIDE 5 MG TAB PO SCH ×2 (08:38→20:59)
[2020-05-16] MEDS: FUROSEMIDE 40MG/4ML VIAL (J1940) IV SCH (08:39)
[2020-05-16] MEDS: traMADol 50 MG TAB PO PRN ×2 (08:40→14:40)
[2020-05-16 10:26] LABS: CORTISOL AM 4.5 UG/DL (4.3-22.4)
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
[2020-05-16 14:00] VITALS: BP 136/80
[2020-05-16] MEDS: methocarbamoL 500 MG TAB PO PRN ×2 (14:39→23:39)
[2020-05-16] MEDS: ATORVASTATIN 20 MG TAB PO SCH (20:59)
[2020-05-16] MEDS: SENNA 8.6 MG TAB (SENOKOT) PO SCH (20:59)
[2020-05-16] MEDS: hydrOXYzine 25 MG TAB PO PRN (20:59)
[2020-05-16 22:00] VITALS: BP 174/94
[2020-05-16] MEDS: RAMELTEON 8 MG TAB (ROZEREM) PO PRN (23:43)
[2020-05-17] VITALS (7 sets, daily range): BP systolic 132–149; BP diastolic 63–76
[2020-05-17] MEDS: VANCOMYCIN HCL 750 MG, VIAL MATE ADAPTER 1 EACH in D5W 250 ML IV SCH ×2 (02:17→15:31)
[2020-05-17] MEDS: LEVOTHYROXINE 50MCG TABLET (0.05MG) PO SCH (05:31)
[2020-05-17] MEDS: PIPERACILLIN/TAZOBACTAM SOD 4.5 GM in D5W MINI-BAG PLUS 50 ML IV SCH ×3 (05:31→18:09)
[2020-05-17] MEDS: oxyCODONE 5MG TAB PO PRN ×3 (05:37→16:11)
[2020-05-17 07:45] LABS: BASO # 0.1 10^3/uL (0.0-0.2); BASO % 0.9 % (0.0-1.0); EOS # 0.7 10^3/uL (0.0-0.5); HEMATOCRIT 30.8 % (36.0-47.0); HEMOGLOBIN 9.2 g/dl (12.0-15.5); LYMPH # 2.2 10^3/uL (1.5-5.0); LYMPH % 15.7 % (24.0-44.0); MEAN CORPUSCULAR HEMOGLOBIN 24.5 pg (27.0-33.0); MEAN CORPUSCULAR HGB CONC 29.9 g/dl (32.0-36.5); MEAN CORPUSCULAR VOLUME 81.9 fl (80.0-96.0); MONO # 1.5 10^3/uL (0.0-0.8); MONO % 10.9 % (0.0-5.0); NEUTROPHILS # 9.2 10^3/uL (1.5-8.5); NEUTROPHILS % 67.1 % (36.0-66.0); PLATELET COUNT, AUTOMATED 487 10^3/uL (150-450); RED BLOOD COUNT 3.76 10^6/uL (4.00-5.40); WHITE BLOOD COUNT 13.8 10^3/uL (4.0-10.0)
[2020-05-17] MEDS ORDERED: dexameTHASONE 4 MG/ML 1ML VIAL (J1100 PER 1MG) As Ordered ONE (08:08)
[2020-05-17] MEDS ORDERED: ONDANSETRON 4MG/2ML VIAL As Ordered ONE (08:08)
[2020-05-17] MEDS ORDERED: ROCURONIUM BROMIDE 50 MG/5 ML VIAL As Ordered ONE ×2 (08:08→11:41)
[2020-05-17] MEDS ORDERED: LIDOCAINE 2% 100MG/5ML SDV (FOR ANES.) As Ordered ONE (08:08)
[2020-05-17] MEDS ORDERED: propofoL 200 MG/20 ML VIAL As Ordered ONE (08:08)
[2020-05-17] MEDS ORDERED: fentaNYL 100 MCG/2 ML INJECTION (J3010) As Ordered ONE ×3 (08:09→15:25)
[2020-05-17 08:16] LABS: BLOOD UREA NITROGEN 7 MG/DL (7-18); CARBON DIOXIDE LEVEL 29 MEQ/L (21-32); CHLORIDE LEVEL 99 MEQ/L (98-107); CREATININE FOR GFR 0.52 MG/DL (0.55-1.30); GLOMERULAR FILTRATION RATE > 60.0 (>45); GLUCOSE, FASTING 87 MG/DL (70-100); POTASSIUM SERUM 3.9 MEQ/L (3.5-5.1); SODIUM LEVEL 137 MEQ/L (136-145)
[2020-05-17] MEDS: MELOXICAM (MOBIC) 7.5 MG TAB PO SCH (09:00)
[2020-05-17] MEDS ORDERED: BUPIVACAINE HCL 0.25% 30ML VIAL As Ordered ONE (09:21)
[2020-05-17] MEDS ORDERED: LIDOCAINE 1% SDV 30ML VIAL As Ordered ONE (09:21)
[2020-05-17] MEDS ORDERED: MIDAZOLAM INJ 2MG/2ML VIAL (J2250 PER 1MG) As Ordered ONE (09:31)
--- NOTE | 2020-05-17 10:02 | IPNPDOC ---
Text Note Date of Service The patient was seen on 05/17/20. NOTE Patient seen in the preop holding area. She looks much comfortable with her breathing than on presentation last week. I examined her wound 2 days ago and this needs further debridement at the left and middle part of the wound bed. She also will need colostomy to divert the stools from the wound to allow this to heal. This would also allow us to try a wound vac on her with probably duoderm covering the anal verge to allow us to get seal on the area. This was explained to the patient (have previously discussed this with her and her ) and she acknowledges understading and signed the consent. Otherwise, she has been stable after the initial debridement. VS,Fishbone, I+O VS, Fishbone, I+O Laboratory Tests 05/17/20 07:14 Vital Signs Date Time Temp Pulse Resp B/P (MAP) Pulse Ox O2 Delivery O2 Flow Rate FiO2 05/17/20 06:07 18 Trach Collar 5.0 28 05/17/20 06:00 98.7 96 142/73 (96) 99 I&O- Last 24 Hours up to 6 AM 05/17/20 06:00 Intake Total 1185 ml Output Total 3550 ml Balance -2365 ml KOREY VALADEZ MD May 17, 2020 10:02
[2020-05-17] MEDS ORDERED: SUGAMMADEX SODIUM 500 MG/5 ML VIAL (BRIDION) As Ordered ONE (10:29)
[2020-05-17] MEDS ORDERED: PHENYLephrine HCL 500 MCG/5 ML (100MCG/ML) SYRINGE (J2370) As Ordered ONE (10:53)
[2020-05-17] MEDS ORDERED: BUPIVACAINE HCL 0.25% 10ML VIAL As Ordered ONE (11:03)
[2020-05-17] MEDS ORDERED: ZOSYN 3.375GM VIAL (J2543) As Ordered ONE (11:03)
[2020-05-17] MEDS ORDERED: BUPIVACAINE LIPOSOME/PF 1.3% 20ML VIAL (13.3MG/ML)(EXPAREL)(C9290 PER1MG) As Ordered ONE (11:03)
[2020-05-17] MEDS ORDERED: ACETAMINOPHEN 1000MG 100ML IV BTL (OFIRMEV) (J0131 PER 10MG) As Ordered ONE (11:20)
[2020-05-17] MEDS ORDERED: DESFLURANE 240 ML INHALANT As Ordered ONE (13:52)
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
[2020-05-17] MEDS ORDERED: KETOROLAC 60MG 2ML VIAL As Ordered ONE (14:19)
[2020-05-17] MEDS: fentaNYL 100 MCG/2 ML INJECTION (J3010) IV PRN ×8 (14:55→15:45)
[2020-05-17] MEDS ORDERED: oxyCODONE 5MG TAB As Ordered ONE ×2 (15:25→16:01)
[2020-05-17] MEDS ORDERED: LR 1,000 ML IV SCH (15:45)
[2020-05-17] MEDS ORDERED: ONDANSETRON 4MG/2ML VIAL IV PRN (15:45)
[2020-05-17] MEDS ORDERED: METOCLOPRAMIDE INJ 10MG/2ML VIAL (J2765 PER 1) IV PRN (15:45)
[2020-05-17] MEDS ORDERED: MEPERIDINE INJ 25 MG/ML VIAL (J2175) IV PRN (15:45)
[2020-05-17] MEDS: DOCUSATE SODIUM 100MG CAPSULE PO SCH ×2 (17:50→20:55)
[2020-05-17] MEDS: GABAPENTIN 300 MG CAP PO SCH ×3 (17:50→20:55)
[2020-05-17] MEDS: METOCLOPRAMIDE 5 MG TAB PO SCH ×2 (17:50→20:55)
[2020-05-17] MEDS: FUROSEMIDE 40MG/4ML VIAL (J1940) IV SCH (18:08)
[2020-05-17] MEDS: POTASSIUM CHLORIDE 10 MEQ SR TABLET PO SCH (18:09)
[2020-05-17] MEDS: DULoxetine 30 MG CAP (CYMBALTA) PO SCH (18:10)
[2020-05-17] MEDS: ASPIRIN 81 MG ENTERIC TAB PO SCH (18:12)
[2020-05-17] MEDS: SENNA 8.6 MG TAB (SENOKOT) PO SCH (20:56)
[2020-05-17] MEDS: ACETAMINOPHEN 325 MG TAB PO PRN (20:56)
[2020-05-17] MEDS: ATORVASTATIN 20 MG TAB PO SCH (20:57)
[2020-05-17] MEDS: RAMELTEON 8 MG TAB (ROZEREM) PO PRN (23:32)
[2020-05-18] VITALS: BP 118/58
[2020-05-18] MEDS: PIPERACILLIN/TAZOBACTAM SOD 4.5 GM in D5W MINI-BAG PLUS 50 ML IV SCH ×4 (01:26→17:49)
[2020-05-18] MEDS: VANCOMYCIN HCL 750 MG, VIAL MATE ADAPTER 1 EACH in D5W 250 ML IV SCH ×2 (02:43→14:00)
[2020-05-18 04:00] VITALS: BP 124/62
[2020-05-18] MEDS: LEVOTHYROXINE 50MCG TABLET (0.05MG) PO SCH (05:43)
[2020-05-18] MEDS: ACETAMINOPHEN 325 MG TAB PO PRN (05:44)
[2020-05-18 06:06] LABS: BASO # 0.1 10^3/uL (0.0-0.2); BASO % 1.1 % (0.0-1.0); EOS # 0.4 10^3/uL (0.0-0.5); EOS % 3.5 % (0.0-3.0); HEMATOCRIT 26.3 % (36.0-47.0); LYMPH # 2.3 10^3/uL (1.5-5.0); LYMPH % 18.6 % (24.0-44.0); MEAN CORPUSCULAR HEMOGLOBIN 24.6 pg (27.0-33.0); MEAN CORPUSCULAR HGB CONC 30.4 g/dl (32.0-36.5); MEAN CORPUSCULAR VOLUME 80.9 fl (80.0-96.0); MONO # 1.6 10^3/uL (0.0-0.8); NEUTROPHILS # 7.9 10^3/uL (1.5-8.5); NEUTROPHILS % 63.6 % (36.0-66.0); PLATELET COUNT, AUTOMATED 466 10^3/uL (150-450); RED BLOOD COUNT 3.25 10^6/uL (4.00-5.40); WHITE BLOOD COUNT 12.4 10^3/uL (4.0-10.0)
[2020-05-18 06:23] LABS: BLOOD UREA NITROGEN 13 MG/DL (7-18); CALCIUM LEVEL 7.7 MG/DL (8.8-10.2); CARBON DIOXIDE LEVEL 30 MEQ/L (21-32); CHLORIDE LEVEL 101 MEQ/L (98-107); CREATININE FOR GFR 0.69 MG/DL (0.55-1.30); GLOMERULAR FILTRATION RATE > 60.0 (>45); GLUCOSE, FASTING 94 MG/DL (70-100); SODIUM LEVEL 138 MEQ/L (136-145)
--- NOTE | 2020-05-18 07:48 | ROOPDOC ---
[facility] Report Of Operation Report of Operation DATE OF PROCEDURE: 05/17/20 PREPROCEDURE DIAGNOSES: infected sacral-coccygeal ulcer. POSTPROCEDURE DIAGNOSES: same. PROCEDURE: Robotic assisted laparoscopic colostomy creation, excisional debridement of sacral-coccygeal decubiti ulcer, initial placement of wound vac for negative pressure therapy. SURGEON: Korey Crenshaw MD SUPERVISOR CLAIMS: Nimisha Deras, RE RECORDING MIXER Ms. Deras provided assistance in the robotic portion with placement of ports, adjustment of the instruments and robotic arms, retraction, as well as during the stoma formation, closure of ports. ANESTHESIA: general anesthesia. ESTIMATED BLOOD LOSS: Approximately 50 mL. COMPLICATIONS: none. REMARKS: Patient is a 64-year-old female paraplegic who has a large decubiti ulcer that would need re-debridement. After debridement it last week. She would also need a perforation of her stool to allow for healing of the wound and to allow us to place a wound VAC as this is only about 2 cm from the anal opening. PROCEDURE NOTE: Prior to debridement wound dimensions measures 15 x 9 x 8 cm depth down to the sacrum and coccyx bone at the midline and paramedial area as, 5 cm undermining on the right side. With her on the left lateral decubitus position between the 12:00 and 5 o'clock position.. DESCRIPTION OF PROCEDURE: Patient continues to receive scheduled antibiotics for her infected sacral decubiti which should cover for the anticipated organisms for surgical prophylaxis with regards to her colostomy formation. I did not give her prep but she is having some hard stools with laxatives. She was brought to the operating room, placed supine and the procedure table. Compression boots placed on both lower extremities were DVT prophylaxis. Anesthesia established peripheral lines. Her non-coughed 4 Shiley trach was exchanged for a cuffed trach and she was connected to a ventilator. Gen. anesthesia then proceeded both arms were on her side. She has an indwelling Wood catheter in place. Her abdomen was widely prepped and draped in the usual sterile fashion.We paused for a surgical timeout using both pre-incision safety checklist to verify correct patient, procedure site and additional clinical information prior to beginning the procedure I began with the right upper quadrant entry. A Veress needle was inserted around the midclavicular area of the subcostal line. A Veress needle was inserted. Proper placement confirmed with saline drop technique. CO2 insufflation and started to pressure 15 mmHg. Using the same incision an 8 mm robotic trocar was placed under direct vision of the laparoscope. Insertion site was inspected for injury and none was found. She has moderate thick omentum covering her small bowel, dilated and distended transverse colon and descending colon feeling up most of the left side. She was placed on a 10 Trendelenburg which she seems to be able to handle with regards to her ventilation., Tilted slightly towards the right side. I established the rest of my ports along almost the same line on the right side including a 12 mm stapler port at about the level of the anterior superior iliac spine. I've previously marked my preferred areas for her colostomy prior to insufflation at the left side. The da Noemy robot tower was maneuvered in place and docked to the trochars. An 8 mm 30 camera was placed and centered over the patient's left-hand side and instruments were placed. I then scrubbed in to control of the camera and instruments at the surgeon's console while my assistant paralegal remained on the field to manage the instrument exchange, adjustment of the arms to adjust for collisions and retraction. As mentioned she has distended colon that is full of hard stool. Her splenic flexure actually runs deep on her left upper quadrant but she has a very the tortuous and dilated sigmoid colon that feels up most of the left side. There is also some problem with the space created by the pneumoperitoneum was she has enlarged mildly dilated intestines as well as bulky omentum. The omentum was placed over the patient's epigastric area. Specimens be can we retracted the small bowel out of the pelvis. I lifted the mid sigmoid colon towards the anterior abdominal wall and scored the mesentery and created a retrocolic window to divide the midsigmoid colon. Thinking I will have less firings of the 60 mm stapler or chills a 60 mm stapler with a green load. This proved hard to position medially by the assistant paralegal to really burp the instrument and arm again space with eventually divided the mid sigmoid colon and subcutaneous firings. After this the mesentery was freed from the left lateral abdominal wall and the medial portion the mesentery was scored and divided so as it will reach on the previously marked areas for the colostomy placement once for have enough length this portion was terminated, the instruments were removed I had a grasper grabbed the edge of the colon stump. I scrubbed back in and started to extract the colon at the colostomy site. Roughly a 3 sent centimeter circumferential skin and subcutaneous incision was created to reach anterior fascia anterior fascia was opened up vertically and the rectus muscles bluntly divided to reach the posterior sheath the posterior sheath was likewise divided vertically and slightly transversely to create space enough for the stump of the colon to be exteriorized. She has a bulky subcutaneous space but we did have enough length for the colostomy. The abdomen was deflated all ports were removed. I closed the 12 mm port fascia anteriorly with 0 Vicryl in a mattress fashion. The other 38 mm ports were disclosed the skin level. I then matured the colostomy slightly flat slightly brooked fashion this appears healthy. I probed the lumen of the colostomy and this has a straight path was able to extract some of hard stools as well as had some gas, out. Satisfied with a colostomy placement. The colostomy wafer and bag was then placed the port site incisions were covered with Dermabond. This ended the colostomy portion and we now prepare for the debridement portion. We repositioned her in the left lateral decubitus position with a beanbag holding are in place. A shoulder roll was placed underneath her left axilla. All pressure points padded. She was secured to the table with nylon tapes as well as the leather belts. The prior dressings were removed and her back area was prepped and draped in usual sterile fashion. We repeated timeout. Pre-debridement. By me at the the wound has slightly inverted hard shaped configuration and compressing both sides of the gluteal area. This measures 15 cm transversely 8 cm vertically and about 9-10 cm depth which is down to the bone at the coccyx and lower sacral level at the midline. The lower portion on the left side of the subcutaneous space has ischemic appearing adipose tissue. On the right side her mostly fibrous tissue and some liquefied fat tissue with this almost down to bone. There is about 5 cm undermining on the right upper lateral area. There is very minimal periwound skin erythema. Slight necrotic of the edges of the skin on the left side. This is a stage IV ulcer. Using mainly Bovie cautery the clearly necrotic skin tissue was removed the ischemic adipose tissue was sharply excised which led to deeper wound cavity on the left side. The fibrous tissue on the right side was from the left over fascia was likewise debrided the ischemic appearing and liquefied-appearing subcutaneous tissue was likewise divided. There was only a faint smell now as compared to the last time. I again used cautery pads to scrub the wound bed as a curette thoroughly doing this about 3 times, washing the wound bed and then checking for hemostasis. Clearly necrotic tissues were removed. After debridement dimensions were 15 cm transversely about 89 cm vertically and 10 cm on about 60% of the wound mostly at the medial area some left over adipose tissue to about 10 8 cm on the left side mostly down to the bone on the right side still about 5 cm maybe slightly more than 6 cm undermining on the right side. Hemostasis was checked. I placed a DuoDERM at the anal opening to bridge this. Cover the skin with sterile drapes and started placing black foam from the wound VAC in the wound cavity which took about 2 spiral foams to cover the wound. I established a track on the right side. All this was sealed with the sterile drapes and was able to establish suction at 1 25 mmHg without any considerable leak. Patient tolerated procedure well she was transferred to the stretcher awakened removed from the ventilator and brought to recovery room in stable condition. KOREY CRENSHAW MD May 18, 2020 07:48
[2020-05-18 08:00] VITALS: BP 116/61
[2020-05-18] MEDS: ASPIRIN 81 MG ENTERIC TAB PO SCH (08:37)
[2020-05-18] MEDS: FUROSEMIDE 40MG/4ML VIAL (J1940) IV SCH (08:37)
[2020-05-18] MEDS: METOCLOPRAMIDE 5 MG TAB PO SCH ×2 (08:38→21:32)
[2020-05-18] MEDS: POTASSIUM CHLORIDE 10 MEQ SR TABLET PO SCH (08:38)
[2020-05-18] MEDS: DOCUSATE SODIUM 100MG CAPSULE PO SCH ×2 (08:38→21:31)
[2020-05-18] MEDS: GABAPENTIN 300 MG CAP PO SCH ×3 (08:38→21:32)
[2020-05-18] MEDS: DULoxetine 30 MG CAP (CYMBALTA) PO SCH (08:38)
[2020-05-18] MEDS: MELOXICAM (MOBIC) 7.5 MG TAB PO SCH (08:38)
[2020-05-18] MEDS: methocarbamoL 500 MG TAB PO PRN ×2 (08:44→17:49)
[2020-05-18] MEDS: hydrOXYzine 25 MG TAB PO PRN ×2 (08:44→17:49)
[2020-05-18] MEDS: oxyCODONE 5MG TAB PO PRN ×3 (08:45→21:33)
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
--- NOTE | 2020-05-18 11:07 | IPNPDOC ---
Text Note Date of Service The patient was seen on 05/18/20. NOTE Patient seen and examined sitting upright on her bed today. Looks comfortable. She underwent robotic-assisted laparoscopic colostomy placement on the left-hand side as well as debridement of her sacral decubiti ulcer neck placed a wound VAC on it. A wound VAC seems to be working accordingly with good suction, not much drainage in the canister. Overall looks comfortable. She reports some mild discomfort over the left-hand side. Her colostomy is functioning. On examination Comfortable, in no acute distress Abdomen is soft, less distended left-hand colostomy working with some hard stools in the bag. Port sites on the right-hand side are covered with Dermabond, clean dry and intact. Sacral ulcer with a wound VAC her to check the canister and the machine and noted this to be working with appropriate suction. Impression and plan Infected sacral decubiti ulcer Colostomy status Patient looks very constipated. I will continue her on laxatives. She should also get some intermittent Fleet Enema during dressing changes to empty out the remainder was left in the sigmoid and rectum. I will reevaluate next week. Patient is hoping to be able to Home by [place]. He may be a good idea to start working on the application for the home wound VAC. VS,[place], I+O VS, [place], I+O Laboratory Tests 05/18/20 04:58 Vital Signs Date Time Temp Pulse Resp B/P (MAP) Pulse Ox O2 Delivery O2 Flow Rate FiO2 05/18/20 09:33 19 Trach Collar 05/18/20 08:00 5.0 28 05/18/20 08:00 98.6 90 116/61 (79) 94 I&O- Last 24 Hours up to 6 AM 05/18/20 05:59 Intake Total 3050 ml Output Total 1040 ml Balance 2009 ml KOREY VALADEZ MD May 18, 2020 11:07
[2020-05-18 12:00] VITALS: BP 111/60
[2020-05-18 16:00] VITALS: BP 142/66
[2020-05-18 20:00] VITALS: BP 134/69
[2020-05-18] MEDS: SENNA 8.6 MG TAB (SENOKOT) PO SCH (21:32)
[2020-05-18] MEDS: ATORVASTATIN 20 MG TAB PO SCH (21:32)
[2020-05-19] VITALS: BP 135/65
[2020-05-19] MEDS: PIPERACILLIN/TAZOBACTAM SOD 4.5 GM in D5W MINI-BAG PLUS 50 ML IV SCH ×4 (00:34→17:49)
[2020-05-19] MEDS: VANCOMYCIN HCL 750 MG, VIAL MATE ADAPTER 1 EACH in D5W 250 ML IV SCH ×2 (02:37→14:38)
[2020-05-19] MEDS: traMADol 50 MG TAB PO PRN ×2 (02:38→13:37)
[2020-05-19] MEDS: methocarbamoL 500 MG TAB PO PRN ×2 (03:02→17:49)
[2020-05-19 04:00] VITALS: BP 116/58
[2020-05-19] MEDS: LEVOTHYROXINE 50MCG TABLET (0.05MG) PO SCH (05:39)
[2020-05-19 06:43] LABS: BASO # 0.1 10^3/uL (0.0-0.2); BASO % 0.8 % (0.0-1.0); EOS % 7.6 % (0.0-3.0); HEMATOCRIT 24.5 % (36.0-47.0); HEMOGLOBIN 7.2 g/dl (12.0-15.5); LYMPH # 2.1 10^3/uL (1.5-5.0); LYMPH % 16.8 % (24.0-44.0); MEAN CORPUSCULAR HEMOGLOBIN 23.9 pg (27.0-33.0); MEAN CORPUSCULAR HGB CONC 29.4 g/dl (32.0-36.5); MEAN CORPUSCULAR VOLUME 81.4 fl (80.0-96.0); MONO # 1.5 10^3/uL (0.0-0.8); MONO % 11.5 % (0.0-5.0); NEUTROPHILS % 62.8 % (36.0-66.0); PLATELET COUNT, AUTOMATED 505 10^3/uL (150-450); RED BLOOD COUNT 3.01 10^6/uL (4.00-5.40); WHITE BLOOD COUNT 12.8 10^3/uL (4.0-10.0)
[2020-05-19 07:06] LABS: BLOOD UREA NITROGEN 13 MG/DL (7-18); CALCIUM LEVEL 7.9 MG/DL (8.8-10.2); CARBON DIOXIDE LEVEL 30 MEQ/L (21-32); CHLORIDE LEVEL 101 MEQ/L (98-107); CREATININE FOR GFR 0.48 MG/DL (0.55-1.30); GLOMERULAR FILTRATION RATE > 60.0 (>45); GLUCOSE, FASTING 80 MG/DL (70-100); POTASSIUM SERUM 4.5 MEQ/L (3.5-5.1); SODIUM LEVEL 137 MEQ/L (136-145)
[2020-05-19 08:00] VITALS: BP 134/63
[2020-05-19] MEDS: DULoxetine 30 MG CAP (CYMBALTA) PO SCH (10:19)
[2020-05-19] MEDS: oxyCODONE 5MG TAB PO PRN ×2 (10:19→22:31)
[2020-05-19] MEDS: GABAPENTIN 300 MG CAP PO SCH ×3 (10:19→20:31)
[2020-05-19] MEDS: DOCUSATE SODIUM 100MG CAPSULE PO SCH ×2 (10:19→20:31)
[2020-05-19] MEDS: METOCLOPRAMIDE 5 MG TAB PO SCH ×2 (10:19→20:31)
[2020-05-19] MEDS: MELOXICAM (MOBIC) 7.5 MG TAB PO SCH (10:20)
[2020-05-19] MEDS: POTASSIUM CHLORIDE 10 MEQ SR TABLET PO SCH (10:20)
[2020-05-19] MEDS: FUROSEMIDE 40MG/4ML VIAL (J1940) IV SCH ×2 (10:20→17:00)
[2020-05-19] MEDS: ASPIRIN 81 MG ENTERIC TAB PO SCH (10:20)
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
[2020-05-19 12:00] VITALS: BP 148/66
[2020-05-19 16:00] VITALS: BP 144/4
[2020-05-19] MEDS: ACETAMINOPHEN 325 MG TAB PO PRN (17:50)
[2020-05-19] MEDS ORDERED: FUROSEMIDE 40MG/4ML VIAL (J1940) IV ONE (19:00)
[2020-05-19 20:00] VITALS: BP 123/59
[2020-05-19] MEDS: ATORVASTATIN 20 MG TAB PO SCH (20:31)
[2020-05-19] MEDS: SENNA 8.6 MG TAB (SENOKOT) PO SCH (20:31)
[2020-05-20] VITALS: BP 128/68
[2020-05-20] MEDS: PIPERACILLIN/TAZOBACTAM SOD 4.5 GM in D5W MINI-BAG PLUS 50 ML IV SCH ×6 (00:32→23:36)
[2020-05-20] MEDS: VANCOMYCIN HCL 750 MG, VIAL MATE ADAPTER 1 EACH in D5W 250 ML IV SCH ×2 (01:38→13:41)
[2020-05-20 04:00] VITALS: BP 141/74
[2020-05-20] MEDS: traMADol 50 MG TAB PO PRN ×2 (04:43→21:56)
[2020-05-20 05:01] LABS: BASO # 0.1 10^3/uL (0.0-0.2); BASO % 0.8 % (0.0-1.0); EOS # 1.2 10^3/uL (0.0-0.5); EOS % 10.3 % (0.0-3.0); HEMATOCRIT 25.7 % (36.0-47.0); HEMOGLOBIN 7.4 g/dl (12.0-15.5); LYMPH # 2.2 10^3/uL (1.5-5.0); LYMPH % 19.7 % (24.0-44.0); MEAN CORPUSCULAR HEMOGLOBIN 23.6 pg (27.0-33.0); MEAN CORPUSCULAR HGB CONC 28.8 g/dl (32.0-36.5); MEAN CORPUSCULAR VOLUME 82.1 fl (80.0-96.0); MONO # 1.3 10^3/uL (0.0-0.8); MONO % 11.5 % (0.0-5.0); NEUTROPHILS # 6.5 10^3/uL (1.5-8.5); NEUTROPHILS % 57.3 % (36.0-66.0); PLATELET COUNT, AUTOMATED 501 10^3/uL (150-450); RED BLOOD COUNT 3.13 10^6/uL (4.00-5.40); WHITE BLOOD COUNT 11.3 10^3/uL (4.0-10.0)
[2020-05-20 05:18] LABS: BLOOD UREA NITROGEN 11 MG/DL (7-18); CALCIUM LEVEL 8.4 MG/DL (8.8-10.2); CARBON DIOXIDE LEVEL 31 MEQ/L (21-32); CHLORIDE LEVEL 101 MEQ/L (98-107); CREATININE FOR GFR 0.56 MG/DL (0.55-1.30); GLOMERULAR FILTRATION RATE > 60.0 (>45); GLUCOSE, FASTING 84 MG/DL (70-100); POTASSIUM SERUM 3.6 MEQ/L (3.5-5.1); SODIUM LEVEL 138 MEQ/L (136-145)
[2020-05-20] MEDS: LEVOTHYROXINE 50MCG TABLET (0.05MG) PO SCH (05:51)
[2020-05-20 08:00] VITALS: BP 152/78
[2020-05-20] MEDS: methocarbamoL 500 MG TAB PO PRN ×2 (09:48→20:22)
[2020-05-20] MEDS: POTASSIUM CHLORIDE 10 MEQ SR TABLET PO SCH (09:48)
[2020-05-20] MEDS: DULoxetine 30 MG CAP (CYMBALTA) PO SCH (09:49)
[2020-05-20] MEDS: METOCLOPRAMIDE 5 MG TAB PO SCH ×2 (09:49→20:25)
[2020-05-20] MEDS: DOCUSATE SODIUM 100MG CAPSULE PO SCH ×2 (09:49→20:23)
[2020-05-20] MEDS: GABAPENTIN 300 MG CAP PO SCH ×3 (09:49→20:23)
[2020-05-20] MEDS: ASPIRIN 81 MG ENTERIC TAB PO SCH (09:49)
[2020-05-20] MEDS: MELOXICAM (MOBIC) 7.5 MG TAB PO SCH (09:49)
[2020-05-20] MEDS: oxyCODONE 5MG TAB PO PRN ×2 (09:50→17:34)
[2020-05-20] MEDS: FUROSEMIDE 40MG/4ML VIAL (J1940) IV SCH ×3 (09:51→17:56)
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
[2020-05-20 12:00] VITALS: BP 142/68
[2020-05-20] MEDS: DICYCLOMINE 10 MG CAP PO PRN ×2 (12:13→21:56)
[2020-05-20 16:00] VITALS: BP 146/78
[2020-05-20 20:00] VITALS: BP 134/69
[2020-05-20] MEDS: RAMELTEON 8 MG TAB (ROZEREM) PO PRN (20:22)
[2020-05-20] MEDS: ATORVASTATIN 20 MG TAB PO SCH (20:22)
[2020-05-20] MEDS: SENNA 8.6 MG TAB (SENOKOT) PO SCH (20:23)
[2020-05-21] VITALS: BP 143/72
[2020-05-21] MEDS: VANCOMYCIN HCL 750 MG, VIAL MATE ADAPTER 1 EACH in D5W 250 ML IV SCH ×2 (01:46→14:59)
[2020-05-21] MEDS: oxyCODONE 5MG TAB PO PRN ×3 (03:50→20:30)
[2020-05-21 04:00] VITALS: BP 135/76
[2020-05-21 04:00] LABS: BASO # 0.1 10^3/uL (0.0-0.2); BASO % 0.7 % (0.0-1.0); EOS # 1.4 10^3/uL (0.0-0.5); EOS % 10.2 % (0.0-3.0); HEMATOCRIT 25.9 % (36.0-47.0); HEMOGLOBIN 7.6 g/dl (12.0-15.5); LYMPH # 2.2 10^3/uL (1.5-5.0); LYMPH % 16.3 % (24.0-44.0); MEAN CORPUSCULAR HEMOGLOBIN 23.7 pg (27.0-33.0); MEAN CORPUSCULAR HGB CONC 29.3 g/dl (32.0-36.5); MEAN CORPUSCULAR VOLUME 80.7 fl (80.0-96.0); MONO # 1.3 10^3/uL (0.0-0.8); MONO % 9.9 % (0.0-5.0); NEUTROPHILS # 8.2 10^3/uL (1.5-8.5); NEUTROPHILS % 62.2 % (36.0-66.0); PLATELET COUNT, AUTOMATED 528 10^3/uL (150-450); RED BLOOD COUNT 3.21 10^6/uL (4.00-5.40); WHITE BLOOD COUNT 13.2 10^3/uL (4.0-10.0)
[2020-05-21 04:21] LABS: BLOOD UREA NITROGEN 9 MG/DL (7-18); CALCIUM LEVEL 7.9 MG/DL (8.8-10.2); CARBON DIOXIDE LEVEL 30 MEQ/L (21-32); CHLORIDE LEVEL 100 MEQ/L (98-107); CREATININE FOR GFR 0.57 MG/DL (0.55-1.30); GLOMERULAR FILTRATION RATE > 60.0 (>45); GLUCOSE, FASTING 99 MG/DL (70-100); SODIUM LEVEL 137 MEQ/L (136-145)
[2020-05-21] MEDS: PIPERACILLIN/TAZOBACTAM SOD 4.5 GM in D5W MINI-BAG PLUS 50 ML IV SCH ×3 (05:17→17:29)
[2020-05-21] MEDS: traMADol 50 MG TAB PO PRN (05:17)
[2020-05-21] MEDS: LEVOTHYROXINE 50MCG TABLET (0.05MG) PO SCH (05:17)
[2020-05-21 08:00] VITALS: BP 138/62
[2020-05-21] MEDS: FUROSEMIDE 40MG/4ML VIAL (J1940) IV SCH ×2 (08:34→17:30)
[2020-05-21] MEDS: POTASSIUM CHLORIDE 10 MEQ SR TABLET PO SCH (08:35)
[2020-05-21] MEDS: GABAPENTIN 300 MG CAP PO SCH ×3 (08:35→20:28)
[2020-05-21] MEDS: DOCUSATE SODIUM 100MG CAPSULE PO SCH ×3 (08:35→21:00)
[2020-05-21] MEDS: ASPIRIN 81 MG ENTERIC TAB PO SCH (08:35)
[2020-05-21] MEDS: DULoxetine 30 MG CAP (CYMBALTA) PO SCH (08:35)
[2020-05-21] MEDS: MELOXICAM (MOBIC) 7.5 MG TAB PO SCH (08:35)
[2020-05-21] MEDS: METOCLOPRAMIDE 5 MG TAB PO SCH ×2 (10:28→20:29)
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
[2020-05-21 12:00] VITALS: BP 146/74
[2020-05-21 12:28] LABS: FERRITIN 76 NG/ML (8-252); IRON (FE) 17 UG/DL (50-170); PERCENT SATURATION 11.1 % (13.2-45.0); TOTAL IRON BINDING CAPACITY 153 UG/DL (250-450)
[2020-05-21 14:09] LABS: FOLATE 3.6 NG/ML (>5.4); VITAMIN B12 LEVEL 629 PG/ML (247-911)
[2020-05-21 16:00] VITALS: BP 138/72
[2020-05-21] MEDS: DICYCLOMINE 10 MG CAP PO PRN (18:57)
[2020-05-21 20:00] VITALS: BP 147/80
[2020-05-21] MEDS: ATORVASTATIN 20 MG TAB PO SCH (20:29)
[2020-05-21] MEDS: SENNA 8.6 MG TAB (SENOKOT) PO SCH ×2 (20:31→21:00)
[2020-05-21] MEDS: methocarbamoL 500 MG TAB PO PRN (20:36)
[2020-05-21] MEDS: RAMELTEON 8 MG TAB (ROZEREM) PO PRN (21:58)
[2020-05-22] VITALS: BP 136/70
[2020-05-22] MEDS ORDERED: SIMETHICONE 80 MG CHEW TAB PO ONE (00:15)
[2020-05-22] MEDS: PIPERACILLIN/TAZOBACTAM SOD 4.5 GM in D5W MINI-BAG PLUS 50 ML IV SCH ×3 (00:28→12:47)
[2020-05-22] MEDS: VANCOMYCIN HCL 750 MG, VIAL MATE ADAPTER 1 EACH in D5W 250 ML IV SCH ×2 (01:43→14:06)
[2020-05-22 04:00] VITALS: BP 129/90
[2020-05-22 04:46] LABS: BASO # 0.1 10^3/uL (0.0-0.2); BASO % 0.8 % (0.0-1.0); EOS # 1.4 10^3/uL (0.0-0.5); EOS % 9.8 % (0.0-3.0); HEMOGLOBIN 8.2 g/dl (12.0-15.5); LYMPH # 2.5 10^3/uL (1.5-5.0); LYMPH % 17.9 % (24.0-44.0); MEAN CORPUSCULAR HGB CONC 29.3 g/dl (32.0-36.5); MEAN CORPUSCULAR VOLUME 82.1 fl (80.0-96.0); MONO # 1.6 10^3/uL (0.0-0.8); MONO % 11.7 % (0.0-5.0); NEUTROPHILS # 8.3 10^3/uL (1.5-8.5); NEUTROPHILS % 59.3 % (36.0-66.0); PLATELET COUNT, AUTOMATED 613 10^3/uL (150-450); RED BLOOD COUNT 3.41 10^6/uL (4.00-5.40)
[2020-05-22 05:01] LABS: BLOOD UREA NITROGEN 10 MG/DL (7-18); CARBON DIOXIDE LEVEL 29 MEQ/L (21-32); CHLORIDE LEVEL 99 MEQ/L (98-107); CREATININE FOR GFR 0.56 MG/DL (0.55-1.30); GLOMERULAR FILTRATION RATE > 60.0 (>45); GLUCOSE, FASTING 94 MG/DL (70-100); SODIUM LEVEL 138 MEQ/L (136-145)
[2020-05-22] MEDS: DICYCLOMINE 10 MG CAP PO PRN (05:13)
[2020-05-22] MEDS: LEVOTHYROXINE 50MCG TABLET (0.05MG) PO SCH (05:13)
[2020-05-22] MEDS: oxyCODONE 5MG TAB PO PRN ×2 (05:14→16:05)
[2020-05-22] MEDS: ACETAMINOPHEN 325 MG TAB PO PRN (06:24)
[2020-05-22 08:56] VITALS: BP 116/55
[2020-05-22] MEDS: GABAPENTIN 300 MG CAP PO SCH ×3 (09:31→21:37)
[2020-05-22] MEDS: MELOXICAM (MOBIC) 7.5 MG TAB PO SCH (09:31)
[2020-05-22] MEDS: FUROSEMIDE 40MG/4ML VIAL (J1940) IV SCH ×2 (09:32→16:04)
[2020-05-22] MEDS: FOLIC ACID 1 MG TAB PO SCH (09:32)
[2020-05-22] MEDS: POTASSIUM CHLORIDE 10 MEQ SR TABLET PO SCH (09:32)
[2020-05-22] MEDS: DOCUSATE SODIUM 100MG CAPSULE PO SCH ×2 (09:32→21:36)
[2020-05-22] MEDS: DULoxetine 30 MG CAP (CYMBALTA) PO SCH (09:33)
[2020-05-22] MEDS: ASPIRIN 81 MG ENTERIC TAB PO SCH (09:33)
[2020-05-22] MEDS: METOCLOPRAMIDE 5 MG TAB PO SCH ×2 (10:10→21:37)
[2020-05-22] MEDS: traMADol 50 MG TAB PO PRN ×2 (10:11→21:38)
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
[2020-05-22 13:30] VITALS: BP 127/65
--- NOTE | 2020-05-22 13:49 | IPNPDOC ---
Text Note Date of Service The patient was seen on 05/22/20. NOTE I evaluated her sacral wound today. The wound VAC was changed last Thursday. It seems to be working appropriately. her colostomy is also working accordingly. Patient reports some mild cramping discomfort but otherwise comfortable. Tolerating regular diet. Her colostomy is working. Vital signs stable, afebrile On examination Her left-sided colostomy is working with formed stool in the bag. Port sites are healing accordingly I removed her wound VAC. She has roughly a 15 x 9 x 10 cm depth wound extending to just about 2 cm above the anal opening. The surrounding skin has no erythema. The right side of the wound appears clean and has beginning granulation tissue. The left side and bed of the wound still has some left over fibrous whitish material with no healing yet. A few of the subcutaneous edges is mildly drying up. No purulent drainage. Plan Have spoken to the patient family services to try to get the insurance to approve the home wound VAC. Patient wants to go home. The bottom of the wound as well as the left bottom edge of the wound may need interval debridement. This can be done as an outpatient at the wound care clinic. Continue with wound VAC dressing changes. VS,Fishbone, I+O VS, Fishbone, I+O Laboratory Tests 05/22/20 04:07 Vital Signs Date Time Temp Pulse Resp B/P (MAP) Pulse Ox O2 Delivery O2 Flow Rate FiO2 05/22/20 13:30 97.6 88 18 127/65 (85) 97 Trach Collar 8.0 28 I&O- Last 24 Hours up to 6 AM 05/22/20 06:00 Intake Total 1585 ml Output Total 2650 ml Balance -1065 ml KOREY VALADEZ MD May 22, 2020 13:49
[2020-05-22 16:10] VITALS: BP 136/69
[2020-05-22 20:00] VITALS: BP 133/61
[2020-05-22] MEDS: ATORVASTATIN 20 MG TAB PO SCH (21:36)
[2020-05-22] MEDS: SENNA 8.6 MG TAB (SENOKOT) PO SCH (21:36)
[2020-05-22] MEDS: RAMELTEON 8 MG TAB (ROZEREM) PO PRN (21:37)
[2020-05-23] VITALS (7 sets, daily range): BP systolic 119–147; BP diastolic 56–77
[2020-05-23] MEDS: DICYCLOMINE 10 MG CAP PO PRN (00:11)
[2020-05-23] MEDS: oxyCODONE 5MG TAB PO PRN ×3 (00:12→21:24)
[2020-05-23] MEDS: LEVOTHYROXINE 50MCG TABLET (0.05MG) PO SCH (05:02)
[2020-05-23] MEDS: ACETAMINOPHEN 325 MG TAB PO PRN (05:02)
[2020-05-23 08:20] LABS: BASO # 0.2 10^3/uL (0.0-0.2); BASO % 1.2 % (0.0-1.0); EOS # 1.4 10^3/uL (0.0-0.5); EOS % 10.9 % (0.0-3.0); HEMATOCRIT 25.6 % (36.0-47.0); HEMOGLOBIN 7.8 g/dl (12.0-15.5); LYMPH # 2.1 10^3/uL (1.5-5.0); LYMPH % 16.4 % (24.0-44.0); MEAN CORPUSCULAR HEMOGLOBIN 24.6 pg (27.0-33.0); MEAN CORPUSCULAR HGB CONC 30.5 g/dl (32.0-36.5); MEAN CORPUSCULAR VOLUME 80.8 fl (80.0-96.0); MONO # 1.3 10^3/uL (0.0-0.8); NEUTROPHILS # 7.9 10^3/uL (1.5-8.5); NEUTROPHILS % 61.1 % (36.0-66.0); PLATELET COUNT, AUTOMATED 592 10^3/uL (150-450); RED BLOOD COUNT 3.17 10^6/uL (4.00-5.40)
[2020-05-23 08:45] LABS: BLOOD UREA NITROGEN 7 MG/DL (7-18); CALCIUM LEVEL 8.3 MG/DL (8.8-10.2); CARBON DIOXIDE LEVEL 31 MEQ/L (21-32); CHLORIDE LEVEL 102 MEQ/L (98-107); CREATININE FOR GFR 0.43 MG/DL (0.55-1.30); GLOMERULAR FILTRATION RATE > 60.0 (>45); GLUCOSE, FASTING 91 MG/DL (70-100); POTASSIUM SERUM 3.7 MEQ/L (3.5-5.1); SODIUM LEVEL 139 MEQ/L (136-145)
[2020-05-23] MEDS: GABAPENTIN 300 MG CAP PO SCH ×3 (09:51→21:17)
[2020-05-23] MEDS: FUROSEMIDE 40MG/4ML VIAL (J1940) IV SCH ×2 (09:51→17:47)
[2020-05-23] MEDS: ASPIRIN 81 MG ENTERIC TAB PO SCH (09:51)
[2020-05-23] MEDS: DULoxetine 30 MG CAP (CYMBALTA) PO SCH (09:51)
[2020-05-23] MEDS: POTASSIUM CHLORIDE 10 MEQ SR TABLET PO SCH (09:52)
[2020-05-23] MEDS: MELOXICAM (MOBIC) 7.5 MG TAB PO SCH (09:52)
[2020-05-23] MEDS: FOLIC ACID 1 MG TAB PO SCH (09:52)
[2020-05-23] MEDS: DOCUSATE SODIUM 100MG CAPSULE PO SCH ×2 (09:52→21:17)
[2020-05-23] MEDS: METOCLOPRAMIDE 5 MG TAB PO SCH ×2 (09:58→21:24)
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
[2020-05-23] MEDS: methocarbamoL 500 MG TAB PO PRN ×2 (15:36→21:24)
[2020-05-23] MEDS: traMADol 50 MG TAB PO PRN (15:37)
[2020-05-23] MEDS ORDERED: MORPHINE 4 MG/ML 1ML VIAL/SYRINGE (J2270) IV ONE (16:30)
[2020-05-23] MEDS: ATORVASTATIN 20 MG TAB PO SCH (21:17)
[2020-05-23] MEDS: SENNA 8.6 MG TAB (SENOKOT) PO SCH (21:17)
[2020-05-23] MEDS: RAMELTEON 8 MG TAB (ROZEREM) PO PRN (21:24)
[2020-05-24] VITALS (9 sets, daily range): BP systolic 105–141; BP diastolic 60–88
[2020-05-24] MEDS: DICYCLOMINE 10 MG CAP PO PRN (00:37)
[2020-05-24] MEDS: traMADol 50 MG TAB PO PRN ×2 (00:38→09:50)
[2020-05-24] MEDS: ACETAMINOPHEN 325 MG TAB PO PRN (03:22)
[2020-05-24] MEDS: LEVOTHYROXINE 50MCG TABLET (0.05MG) PO SCH (05:42)
[2020-05-24] MEDS: oxyCODONE 5MG TAB PO PRN (05:42)
[2020-05-24] MEDS: FUROSEMIDE 40MG/4ML VIAL (J1940) IV SCH ×2 (09:48→17:58)
[2020-05-24] MEDS: ASPIRIN 81 MG ENTERIC TAB PO SCH (09:48)
[2020-05-24] MEDS: GABAPENTIN 300 MG CAP PO SCH ×3 (09:49→20:08)
[2020-05-24] MEDS: methocarbamoL 500 MG TAB PO PRN (09:49)
[2020-05-24] MEDS: DULoxetine 30 MG CAP (CYMBALTA) PO SCH (09:50)
[2020-05-24] MEDS: MELOXICAM (MOBIC) 7.5 MG TAB PO SCH (09:50)
[2020-05-24] MEDS: POTASSIUM CHLORIDE 10 MEQ SR TABLET PO SCH (09:50)
[2020-05-24] MEDS: FOLIC ACID 1 MG TAB PO SCH (09:50)
[2020-05-24] MEDS: DOCUSATE SODIUM 100MG CAPSULE PO SCH (09:50)
[2020-05-24] MEDS: METOCLOPRAMIDE 5 MG TAB PO SCH ×2 (09:56→20:07)
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
[2020-05-24] MEDS: SENOKOT S TAB PO SCH ×2 (12:33→20:07)
[2020-05-24] MEDS: BUPRENORPHINE/NALOXONE 2-0.5MG SUBLINGUAL TABLET(SUBOXONE) SL SCH ×2 (12:33→20:08)
[2020-05-24] MEDS: ATORVASTATIN 20 MG TAB PO SCH (20:08)
[2020-05-25 06:00] VITALS: BP 102/59
[2020-05-25] MEDS: LEVOTHYROXINE 50MCG TABLET (0.05MG) PO SCH (06:02)
[2020-05-25] MEDS: FUROSEMIDE 40MG/4ML VIAL (J1940) IV SCH ×2 (08:42→17:19)
[2020-05-25] MEDS: SENOKOT S TAB PO SCH ×2 (08:43→20:49)
[2020-05-25] MEDS: POTASSIUM CHLORIDE 10 MEQ SR TABLET PO SCH (08:43)
[2020-05-25] MEDS: MELOXICAM (MOBIC) 7.5 MG TAB PO SCH (08:43)
[2020-05-25] MEDS: BUPRENORPHINE/NALOXONE 2-0.5MG SUBLINGUAL TABLET(SUBOXONE) SL SCH ×2 (08:44→20:50)
[2020-05-25] MEDS: FOLIC ACID 1 MG TAB PO SCH (08:44)
[2020-05-25] MEDS: GABAPENTIN 300 MG CAP PO SCH ×3 (08:44→20:50)
[2020-05-25] MEDS: DULoxetine 30 MG CAP (CYMBALTA) PO SCH (08:44)
[2020-05-25] MEDS: METOCLOPRAMIDE 5 MG TAB PO SCH ×2 (08:44→20:50)
[2020-05-25] MEDS: ASPIRIN 81 MG ENTERIC TAB PO SCH (08:44)
[2020-05-25 14:00] VITALS: BP 113/69
[2020-05-25] MEDS: ACETAMINOPHEN 325 MG TAB PO PRN ×2 (15:16→22:10)
[2020-05-25] MEDS: ATORVASTATIN 20 MG TAB PO SCH (20:50)
[2020-05-25] MEDS: RAMELTEON 8 MG TAB (ROZEREM) PO PRN (20:52)
[2020-05-25 22:00] VITALS: BP 131/68
[2020-05-26] MEDS: LEVOTHYROXINE 50MCG TABLET (0.05MG) PO SCH (05:54)
[2020-05-26 06:00] VITALS: BP 113/67
[2020-05-26] MEDS: ACETAMINOPHEN 325 MG TAB PO PRN ×2 (06:07→16:23)
[2020-05-26 06:27] LABS: HEMATOCRIT 30.2 % (36.0-47.0); HEMOGLOBIN 8.8 g/dl (12.0-15.5); MEAN CORPUSCULAR HEMOGLOBIN 24.5 pg (27.0-33.0); MEAN CORPUSCULAR HGB CONC 29.1 g/dl (32.0-36.5); MEAN CORPUSCULAR VOLUME 84.1 fl (80.0-96.0); PLATELET COUNT, AUTOMATED 627 10^3/uL (150-450); RED BLOOD COUNT 3.59 10^6/uL (4.00-5.40); WHITE BLOOD COUNT 14.4 10^3/uL (4.0-10.0)
[2020-05-26 06:54] LABS: ALBUMIN 2.2 GM/DL (3.2-5.2); ALT/SGPT 10 U/L (12-78); BILIRUBIN,TOTAL 0.3 MG/DL (0.2-1.0); BLOOD UREA NITROGEN 15 MG/DL (7-18); CALCIUM LEVEL 8.5 MG/DL (8.8-10.2); CARBON DIOXIDE LEVEL 32 MEQ/L (21-32); CHLORIDE LEVEL 99 MEQ/L (98-107); CREATININE FOR GFR 0.52 MG/DL (0.55-1.30); GLOMERULAR FILTRATION RATE > 60.0 (>45); GLUCOSE, FASTING 107 MG/DL (70-100); POTASSIUM SERUM 4.6 MEQ/L (3.5-5.1); SODIUM LEVEL 135 MEQ/L (136-145)
--- NOTE | 2020-05-26 08:40 | IPN ---
PROGRESS NOTE DATE: 05/25/2020 SUBJECTIVE: Nadege is seen in [address] [place]. She has had an uneventful last 24 hours. She has got a wound VAC on her safer wounds. She has got her ostomy. Ostomy seems to be functioning well. She is on Suboxone for opiate dependence, does not seem to be having significant problems with that currently. PHYSICAL EXAM: Afebrile, vital signs stable, blood pressure 102/59. Lungs: Clear. Abdomen: Soft, nontender, ostomy present. No labs were done. IMPRESSION: The patient is medically stable at this time. Ostomy care and wound care is per Dr. Crenshaw. The rest of the medical problems are stable. Would suggest she might be a good candidate for PMR to evaluate. She has not had labs in a few days. We will order a CBC and a BMP for tomorrow, being stable today.
[2020-05-26] MEDS: GABAPENTIN 300 MG CAP PO SCH ×3 (09:43→22:02)
[2020-05-26] MEDS: SENOKOT S TAB PO SCH ×2 (09:43→22:02)
[2020-05-26] MEDS: BUPRENORPHINE/NALOXONE 2-0.5MG SUBLINGUAL TABLET(SUBOXONE) SL SCH ×2 (09:43→22:05)
[2020-05-26] MEDS: ASPIRIN 81 MG ENTERIC TAB PO SCH (09:43)
[2020-05-26] MEDS: POTASSIUM CHLORIDE 10 MEQ SR TABLET PO SCH (09:43)
[2020-05-26] MEDS: METOCLOPRAMIDE 5 MG TAB PO SCH ×2 (09:44→22:02)
[2020-05-26] MEDS: DICYCLOMINE 10 MG CAP PO PRN (09:44)
[2020-05-26] MEDS: DULoxetine 30 MG CAP (CYMBALTA) PO SCH (09:44)
[2020-05-26] MEDS: MELOXICAM (MOBIC) 7.5 MG TAB PO SCH (09:44)
[2020-05-26] MEDS: FOLIC ACID 1 MG TAB PO SCH (09:44)
[2020-05-26] MEDS: FUROSEMIDE 40MG/4ML VIAL (J1940) IV SCH ×2 (09:45→16:23)
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
[2020-05-26 14:00] VITALS: BP 112/65
[2020-05-26 22:00] VITALS: BP 113/64
[2020-05-26] MEDS: ATORVASTATIN 20 MG TAB PO SCH (22:02)
[2020-05-26] MEDS: methocarbamoL 500 MG TAB PO PRN (22:02)
[2020-05-26] MEDS: ENOXAPARIN 40MG/0.4ML SYRINGE (J1650 PER 10MG) SC SCH (22:03)
[2020-05-27] MEDS: LEVOTHYROXINE 50MCG TABLET (0.05MG) PO SCH (05:26)
[2020-05-27 06:00] VITALS: BP 138/70
[2020-05-27] MEDS: ACETAMINOPHEN 325 MG TAB PO PRN ×2 (06:12→15:45)
[2020-05-27 06:46] LABS: BASO # 0.2 10^3/uL (0.0-0.2); BASO % 1.1 % (0.0-1.0); EOS # 1.2 10^3/uL (0.0-0.5); EOS % 8.6 % (0.0-3.0); HEMATOCRIT 29.2 % (36.0-47.0); HEMOGLOBIN 8.8 g/dl (12.0-15.5); MEAN CORPUSCULAR HEMOGLOBIN 25.5 pg (27.0-33.0); MEAN CORPUSCULAR HGB CONC 30.1 g/dl (32.0-36.5); MEAN CORPUSCULAR VOLUME 84.6 fl (80.0-96.0); MONO # 1.5 10^3/uL (0.0-0.8); MONO % 10.9 % (0.0-5.0); NEUTROPHILS # 9.1 10^3/uL (1.5-8.5); NEUTROPHILS % 64.6 % (36.0-66.0); PLATELET COUNT, AUTOMATED 528 10^3/uL (150-450); RED BLOOD COUNT 3.45 10^6/uL (4.00-5.40); WHITE BLOOD COUNT 14.2 10^3/uL (4.0-10.0)
[2020-05-27 07:16] LABS: ALT/SGPT 8 U/L (12-78); BILIRUBIN,TOTAL 0.2 MG/DL (0.2-1.0); BLOOD UREA NITROGEN 14 MG/DL (7-18); CARBON DIOXIDE LEVEL 30 MEQ/L (21-32); CHLORIDE LEVEL 99 MEQ/L (98-107); CREATININE FOR GFR 0.51 MG/DL (0.55-1.30); GLOMERULAR FILTRATION RATE > 60.0 (>45); GLUCOSE, FASTING 155 MG/DL (70-100); POTASSIUM SERUM 4.4 MEQ/L (3.5-5.1); SODIUM LEVEL 135 MEQ/L (136-145); TOTAL PROTEIN 6.5 GM/DL (6.4-8.2)
[2020-05-27] MEDS: SENOKOT S TAB PO SCH ×3 (09:00→20:21)
[2020-05-27] MEDS: ASPIRIN 81 MG ENTERIC TAB PO SCH (09:27)
[2020-05-27] MEDS: FOLIC ACID 1 MG TAB PO SCH (09:27)
[2020-05-27] MEDS: GABAPENTIN 300 MG CAP PO SCH ×3 (09:27→20:21)
[2020-05-27] MEDS: DULoxetine 30 MG CAP (CYMBALTA) PO SCH (09:27)
[2020-05-27] MEDS: MELOXICAM (MOBIC) 7.5 MG TAB PO SCH (09:27)
[2020-05-27] MEDS: FUROSEMIDE 40MG/4ML VIAL (J1940) IV SCH (09:27)
[2020-05-27] MEDS: METOCLOPRAMIDE 5 MG TAB PO SCH ×2 (09:27→20:21)
[2020-05-27] MEDS: BUPRENORPHINE/NALOXONE 2-0.5MG SUBLINGUAL TABLET(SUBOXONE) SL SCH ×2 (09:27→20:21)
[2020-05-27] MEDS: POTASSIUM CHLORIDE 10 MEQ SR TABLET PO SCH (09:28)
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
[2020-05-27 14:00] VITALS: BP 122/83
[2020-05-27] MEDS: DICYCLOMINE 10 MG CAP PO PRN (17:22)
[2020-05-27] MEDS: ENOXAPARIN 40MG/0.4ML SYRINGE (J1650 PER 10MG) SC SCH (20:20)
[2020-05-27] MEDS: ATORVASTATIN 20 MG TAB PO SCH (20:21)
[2020-05-27 22:00] VITALS: BP 120/82
[2020-05-28] MEDS: ACETAMINOPHEN 325 MG TAB PO PRN ×3 (01:01→17:21)
[2020-05-28] MEDS: LEVOTHYROXINE 50MCG TABLET (0.05MG) PO SCH (05:48)
[2020-05-28 06:00] VITALS: BP 127/71
[2020-05-28 07:12] LABS: BASO # 0.2 10^3/uL (0.0-0.2); BASO % 1.3 % (0.0-1.0); EOS # 1.1 10^3/uL (0.0-0.5); EOS % 8.9 % (0.0-3.0); HEMATOCRIT 29.2 % (36.0-47.0); HEMOGLOBIN 8.6 g/dl (12.0-15.5); LYMPH # 1.9 10^3/uL (1.5-5.0); LYMPH % 15.5 % (24.0-44.0); MEAN CORPUSCULAR HEMOGLOBIN 24.4 pg (27.0-33.0); MEAN CORPUSCULAR HGB CONC 29.5 g/dl (32.0-36.5); MEAN CORPUSCULAR VOLUME 82.7 fl (80.0-96.0); MONO # 1.3 10^3/uL (0.0-0.8); MONO % 10.5 % (0.0-5.0); NEUTROPHILS # 7.6 10^3/uL (1.5-8.5); NEUTROPHILS % 63.1 % (36.0-66.0); PLATELET COUNT, AUTOMATED 571 10^3/uL (150-450); RED BLOOD COUNT 3.53 10^6/uL (4.00-5.40); WHITE BLOOD COUNT 12.1 10^3/uL (4.0-10.0)
[2020-05-28 07:31] LABS: BLOOD UREA NITROGEN 17 MG/DL (7-18); CALCIUM LEVEL 8.3 MG/DL (8.8-10.2); CARBON DIOXIDE LEVEL 30 MEQ/L (21-32); CHLORIDE LEVEL 99 MEQ/L (98-107); CREATININE FOR GFR 0.48 MG/DL (0.55-1.30); GLOMERULAR FILTRATION RATE > 60.0 (>45); GLUCOSE, FASTING 109 MG/DL (70-100); POTASSIUM SERUM 4.8 MEQ/L (3.5-5.1); SODIUM LEVEL 136 MEQ/L (136-145)
[2020-05-28] MEDS: SENOKOT S TAB PO SCH ×2 (09:00→20:35)
[2020-05-28] MEDS: GABAPENTIN 300 MG CAP PO SCH ×3 (09:04→20:35)
[2020-05-28] MEDS: POTASSIUM CHLORIDE 10 MEQ SR TABLET PO SCH (09:04)
[2020-05-28] MEDS: METOCLOPRAMIDE 5 MG TAB PO SCH ×2 (09:04→20:35)
[2020-05-28] MEDS: MELOXICAM (MOBIC) 7.5 MG TAB PO SCH (09:04)
[2020-05-28] MEDS: ASPIRIN 81 MG ENTERIC TAB PO SCH (09:04)
[2020-05-28] MEDS: BUPRENORPHINE/NALOXONE 2-0.5MG SUBLINGUAL TABLET(SUBOXONE) SL SCH ×2 (09:04→20:39)
[2020-05-28] MEDS: FOLIC ACID 1 MG TAB PO SCH (09:04)
[2020-05-28] MEDS: DULoxetine 30 MG CAP (CYMBALTA) PO SCH (09:05)
--- NOTE | 2020-05-28 11:18 | IPNPDOC ---
Text Note Date of Service The patient was seen on 05/28/20. NOTE No acute events over the weekend. The would vac was changed today, so I was able to take a look. There is some slough tissue on the left lateral side and a little in the base as well. The right side and the edges all look good and healthy. I recommend to continue with the wound vac for now. She wants to go home, and have Dr. Reed follow up with her outpatient. However, recommendations are for inpatient rehab. I will continue to monitor her while she is here, and consider bedside debridement in the future before discharge if needed. Herbert Bautista DO VS,[facility], I+O VS, [facility], I+O Laboratory Tests 05/28/20 06:29 Vital Signs Date Time Temp Pulse Resp B/P (MAP) Pulse Ox O2 Delivery O2 Flow Rate FiO2 05/28/20 06:00 97.5 101 20 127/71 (89) 93 05/27/20 14:00 Room Air 05/22/20 16:10 8.0 28 I&O- Last 24 Hours up to 6 AM 05/28/20 06:00 Intake Total 2240 ml Output Total 1200 ml Balance 1040 ml DEEPA BAUTISTA DO May 28, 2020 11:18
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
[2020-05-28 14:00] VITALS: BP 119/79
[2020-05-28] MEDS: FUROSEMIDE 40 MG TAB PO SCH (14:58)
[2020-05-28] MEDS: ENOXAPARIN 40MG/0.4ML SYRINGE (J1650 PER 10MG) SC SCH (20:34)
[2020-05-28] MEDS: ATORVASTATIN 20 MG TAB PO SCH (20:35)
[2020-05-28 22:00] VITALS: BP 117/64
[2020-05-28] MEDS: RAMELTEON 8 MG TAB (ROZEREM) PO PRN (22:32)
[2020-05-29] MEDS: LEVOTHYROXINE 50MCG TABLET (0.05MG) PO SCH (05:18)
[2020-05-29] MEDS: ACETAMINOPHEN 325 MG TAB PO PRN ×2 (05:19→15:43)
[2020-05-29 06:00] VITALS: BP 104/57
[2020-05-29 06:17] LABS: BASO # 0.2 10^3/uL (0.0-0.2); BASO % 1.2 % (0.0-1.0); EOS % 7.4 % (0.0-3.0); HEMOGLOBIN 8.6 g/dl (12.0-15.5); LYMPH % 15.3 % (24.0-44.0); MEAN CORPUSCULAR HEMOGLOBIN 26.3 pg (27.0-33.0); MEAN CORPUSCULAR HGB CONC 30.7 g/dl (32.0-36.5); MEAN CORPUSCULAR VOLUME 85.6 fl (80.0-96.0); MONO # 1.3 10^3/uL (0.0-0.8); NEUTROPHILS # 8.7 10^3/uL (1.5-8.5); NEUTROPHILS % 65.4 % (36.0-66.0); PLATELET COUNT, AUTOMATED 502 10^3/uL (150-450); RED BLOOD COUNT 3.27 10^6/uL (4.00-5.40); WHITE BLOOD COUNT 13.4 10^3/uL (4.0-10.0)
[2020-05-29 06:42] LABS: BLOOD UREA NITROGEN 13 MG/DL (7-18); CALCIUM LEVEL 8.9 MG/DL (8.8-10.2); CARBON DIOXIDE LEVEL 32 MEQ/L (21-32); CHLORIDE LEVEL 99 MEQ/L (98-107); GLOMERULAR FILTRATION RATE > 60.0 (>45); GLUCOSE, FASTING 106 MG/DL (70-100); POTASSIUM SERUM 4.6 MEQ/L (3.5-5.1); SODIUM LEVEL 136 MEQ/L (136-145)
[2020-05-29] MEDS: METOCLOPRAMIDE 5 MG TAB PO SCH ×2 (07:57→20:22)
[2020-05-29] MEDS: DULoxetine 30 MG CAP (CYMBALTA) PO SCH (07:57)
[2020-05-29] MEDS: GABAPENTIN 300 MG CAP PO SCH ×3 (07:57→20:22)
[2020-05-29] MEDS: POTASSIUM CHLORIDE 10 MEQ SR TABLET PO SCH (07:57)
[2020-05-29] MEDS: FOLIC ACID 1 MG TAB PO SCH (07:57)
[2020-05-29] MEDS: BUPRENORPHINE/NALOXONE 2-0.5MG SUBLINGUAL TABLET(SUBOXONE) SL SCH ×2 (07:58→20:23)
[2020-05-29] MEDS: ASPIRIN 81 MG ENTERIC TAB PO SCH (07:58)
[2020-05-29] MEDS: MELOXICAM (MOBIC) 7.5 MG TAB PO SCH (07:58)
[2020-05-29] MEDS: FUROSEMIDE 40 MG TAB PO SCH ×2 (07:58→21:07)
[2020-05-29] MEDS: SENOKOT S TAB PO SCH ×2 (07:58→20:22)
[2020-05-29 14:00] VITALS: BP 112/77
[2020-05-29] MEDS: ENOXAPARIN 40MG/0.4ML SYRINGE (J1650 PER 10MG) SC SCH (20:22)
[2020-05-29] MEDS: ATORVASTATIN 20 MG TAB PO SCH (20:22)
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
[2020-05-29 22:00] VITALS: BP 104/69
[2020-05-29] MEDS: RAMELTEON 8 MG TAB (ROZEREM) PO PRN (22:38)
[2020-05-30 06:00] VITALS: BP 109/68
[2020-05-30] MEDS: LEVOTHYROXINE 50MCG TABLET (0.05MG) PO SCH (06:31)
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
[2020-05-30] MEDS: FUROSEMIDE 40 MG TAB PO SCH (08:05)
[2020-05-30] MEDS: DULoxetine 30 MG CAP (CYMBALTA) PO SCH (08:06)
[2020-05-30] MEDS: ASPIRIN 81 MG ENTERIC TAB PO SCH (08:06)
[2020-05-30] MEDS: METOCLOPRAMIDE 5 MG TAB PO SCH (08:06)
[2020-05-30] MEDS: FOLIC ACID 1 MG TAB PO SCH (08:06)
[2020-05-30] MEDS: GABAPENTIN 300 MG CAP PO SCH (08:06)
[2020-05-30] MEDS: POTASSIUM CHLORIDE 10 MEQ SR TABLET PO SCH (08:06)
[2020-05-30] MEDS: SENOKOT S TAB PO SCH (08:06)
[2020-05-30] MEDS: BUPRENORPHINE/NALOXONE 2-0.5MG SUBLINGUAL TABLET(SUBOXONE) SL SCH (08:07)
[2020-05-30] MEDS: MELOXICAM (MOBIC) 7.5 MG TAB PO SCH (08:09)
[2020-05-30] MEDS ORDERED: CYANOCOBALAMIN 250 MCG TABLET PO SCH (09:00)
[2020-05-30] MEDS ORDERED: FERROUS GLUCONATE 324 MG TAB PO SCH (09:00)
[2020-05-30] MEDS: ACETAMINOPHEN 325 MG TAB PO PRN (09:48)
[2020-05-30] MEDS: methocarbamoL 500 MG TAB PO PRN (12:42)
[2020-05-30] MEDS ORDERED: VITA250T50 PO (14:04)
[2020-05-30] MEDS ORDERED: FERR32TA PO (14:04)
[2020-05-30] MEDS ORDERED: FOLI1TAB11 PO (14:04)
[2020-05-30] MEDS ORDERED: MIRA3350 PO ×2 (14:05→14:53)
[2020-05-30] MEDS ORDERED: GABA600T4 PO (14:53)
[2020-05-30] MEDS ORDERED: ASPI81TA26 PO (14:53)
[2020-05-30] MEDS ORDERED: MELA3TAB49 PO (14:53)
[2020-05-30] MEDS ORDERED: DULO1CAP6 PO (14:53)
[2020-05-30] MEDS ORDERED: RA S8.6T3 PO (14:53)
[2020-05-30] MEDS ORDERED: DOCU100C16 PO (14:53)
[2020-05-30] MEDS ORDERED: BISA5TAB72 PO (14:53)
[2020-05-30] MEDS ORDERED: IPRA0.00 INH (14:53)
[2020-05-30] MEDS ORDERED: ACET1TAB55 PO (14:53)
[2020-05-30] MEDS ORDERED: HYDR-3363 PO (14:53)
[2020-05-30] MEDS ORDERED: ATOR40TA75 PO (14:53)
[2020-05-30] MEDS ORDERED: NYST1POW9 TOP (14:53)
[2020-05-30] MEDS ORDERED: LEVO50TA45 PO (14:53)
[2020-05-30] MEDS ORDERED: FURO40TA2 PO (14:53)
[2020-05-30] MEDS ORDERED: METH1TAB40 PO (14:53)
[2020-05-30] MEDS ORDERED: MOBI4TAB PO (14:53)
[2020-05-30] MEDS ORDERED: PROP15DR12 OU (14:53)
[2020-05-30] MEDS ORDERED: METO5TAB2 PO (14:53)
[2020-05-31] MEDS ORDERED: SUBO4MIS SL (17:18)
--- NOTE | 2020-06-03 21:49 | IPN ---
PROGRESS NOTE DATE: 06/03/2020 SUBJECTIVE: The patient was recently admitted for treatment of a perineal pressure sore which required extensive debridement and a diverting colostomy. She was re-admitted recently by the Hospitalist Service. She has been diagnosed with a pseudomonas urinary tract infection and also had some obstipation and some bleeding at her recent stoma site. She reports that she had the ostomy appliance changed twice in the last 24 hours. Vital signs show that she has been afebrile over the past 24 hours. Her pulse is in the high 80's to low 100's. Blood pressure is good. Intake and output show that she has 3,100 in with 2,800 out. There is not any stool recorded on her output sheet, but the patient reports she has had some output from her colostomy. PHYSICAL EXAMINATION: GENERAL APPEARANCE: The patient appears comfortable and alert. ABDOMEN: Examination shows that the ostomy appliance appears to be well placed. The visible portion of her stoma is pink and viable. There is no stool in the current bag. LABORATORY STUDIES: The patient's white count is 12, hemoglobin 9, hematocrit 31 and a platelet count of 437. Chemistry profile shows normal electrolytes with a BUN of 7, creatinine 0.4 and a glucose of 91. IMPRESSION: The patient overall appears to be doing fairly well. She remains on antibiotics per the Hospitalist. Her ostomy seems to be functioning although the output is not well recorded. There does not appear to be any bleeding from her stoma at this point. PLAN: The patient will be monitored regarding her ostomy output. Her surgeon should be back tomorrow, the june to reconnect and continue the follow up of her perineal wound and diverting colostomy. MICHAEL
== END 2020-05-30 18:05 | disposition home health service (06) | DRG 364 ==
LOC: M ED 13:10 → M ED INP 15:42 → ENRESERV 16:23 → M MSPAV 17:25 → M PCU 05-17 16:55 → M MSPAV 05-24 23:15
PROVIDERS: ADMIT Internal Medicine; ATTEND Internal Medicine Nephrology
PROC: 0QB10ZZ Excision of Sacrum, Open Approach (ICD-10-PCS; principal; 2020-05-11 13:00)
PROC: 8E0W4CZ Robotic Assisted Procedure of Trunk Region, Percutaneous Endoscopic Approach (ICD-10-PCS; 2020-05-17)
PROC: 0JB90ZZ Excision of Buttock Subcutaneous Tissue and Fascia, Open Approach (ICD-10-PCS; 2020-05-17)
PROC: 0D1N4J4 Bypass Sigmoid Colon to Cutaneous with Synthetic Substitute, Percutaneous Endoscopic Approach (ICD-10-PCS; 2020-05-17 09:30)
PROC: 30233N1 Transfusion of Nonautologous Red Blood Cells into Peripheral Vein, Percutaneous Approach (ICD-10-PCS; 2020-05-23)
DX: L89.154 Pressure ulcer of sacral region, stage 4 (principal); I50.33 Acute on chronic diastolic (congestive) heart failure; J96.11 Chronic respiratory failure with hypoxia; G82.20 Paraplegia, unspecified; J96.12 Chronic respiratory failure with hypercapnia; I11.0 Hypertensive heart disease with heart failure; E11.40 Type 2 diabetes mellitus with diabetic neuropathy, unspecified; J95.02 Infection of tracheostomy stoma; N31.9 Neuromuscular dysfunction of bladder, unspecified; E66.01 Morbid (severe) obesity due to excess calories; Z68.42 Body mass index [BMI] 45.0-49.9, adult; T83.511A Infection and inflammatory reaction due to indwelling urethral catheter, initial encounter; K56.41 Fecal impaction; Z87.81 Personal history of (healed) traumatic fracture; M06.9 Rheumatoid arthritis, unspecified; B96.5 Pseudomonas (aeruginosa) (mallei) (pseudomallei) as the cause of diseases classified elsewhere; M54.17 Radiculopathy, lumbosacral region; M62.830 Muscle spasm of back; B95.62 Methicillin resistant Staphylococcus aureus infection as the cause of diseases classified elsewhere; D63.8 Anemia in other chronic diseases classified elsewhere; G43.909 Migraine, unspecified, not intractable, without status migrainosus; E03.9 Hypothyroidism, unspecified; Z79.82 Long term (current) use of aspirin; Z79.52 Long term (current) use of systemic steroids; Z79.1 Long term (current) use of non-steroidal anti-inflammatories (NSAID); Z20.828 Contact with and (suspected) exposure to other viral communicable diseases; Z79.899 Other long term (current) drug therapy; Z74.01 Bed confinement status; Y84.6 Urinary catheterization as the cause of abnormal reaction of the patient, or of later complication, without mention of misadventure at the time of the procedure; Z80.49 Family history of malignant neoplasm of other genital organs; Z86.14 Personal history of Methicillin resistant Staphylococcus aureus infection

== ENCOUNTER 2020-05-31 12:48 | Inpatient (IN) | payer OTHER ==
[~2020-05-31] VITALS: Ht 172.7 cm; Wt 123.1 kg
[~2020-05-31 12:48] MED LIST changes: +FERR32TA PO; +FOLI1TAB11 PO; +LEVO50TA45 PO; +VITA250T50 PO
[2020-05-31] MEDS ORDERED: PANTOPRAZOLE 40MG VIAL (C9113 PER 1) IV ONE (13:00)
[2020-05-31] MEDS ORDERED: ONDANSETRON 4MG/2ML VIAL IV ONE (13:00)
[2020-05-31 13:33] LABS: BASO # 0.1 10^3/uL (0.0-0.2); BASO % 0.8 % (0.0-1.0); EOS # 0.9 10^3/uL (0.0-0.5); EOS % 5.7 % (0.0-3.0); HEMATOCRIT 28.4 % (36.0-47.0); HEMOGLOBIN 8.5 g/dl (12.0-15.5); LYMPH # 1.7 10^3/uL (1.5-5.0); LYMPH % 10.6 % (24.0-44.0); MEAN CORPUSCULAR HEMOGLOBIN 24.9 pg (27.0-33.0); MEAN CORPUSCULAR HGB CONC 29.9 g/dl (32.0-36.5); MEAN CORPUSCULAR VOLUME 83.3 fl (80.0-96.0); MONO # 1.6 10^3/uL (0.0-0.8); MONO % 10.5 % (0.0-5.0); NEUTROPHILS # 11.1 10^3/uL (1.5-8.5); NEUTROPHILS % 71.6 % (36.0-66.0); PLATELET COUNT, AUTOMATED 485 10^3/uL (150-450); RED BLOOD COUNT 3.41 10^6/uL (4.00-5.40); WHITE BLOOD COUNT 15.5 10^3/uL (4.0-10.0)
[2020-05-31] MEDS: NS 1,000 ML IV SCH ×2 (13:36→23:23)
[2020-05-31] MEDS: GASTROGRAFIN SOLUTION 30ML PO SCH ×2 (13:37→14:33)
--- NOTE | 2020-05-31 13:39 | ECGEPIP ---
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
[2020-05-31 13:44] LABS: INR 1.05; PROTHROMBIN TIME 13.9 SECONDS (12.5-14.3)
[2020-05-31 14:10] LABS: ALBUMIN 2.3 GM/DL (3.2-5.2); ALT/SGPT 7 U/L (12-78); BILIRUBIN,DIRECT 0.1 MG/DL (0.0-0.2); BILIRUBIN,TOTAL 0.2 MG/DL (0.2-1.0); BLOOD UREA NITROGEN 12 MG/DL (7-18); CALCIUM LEVEL 8.7 MG/DL (8.8-10.2); CARBON DIOXIDE LEVEL 35 MEQ/L (21-32); CHLORIDE LEVEL 95 MEQ/L (98-107); CK-MB VALUE MASS < 1.0 NG/ML (<3.6); CPK CREATINE PHOSPHOKINASE 11 U/L (26-192); CREATININE FOR GFR 0.48 MG/DL (0.55-1.30); GLOMERULAR FILTRATION RATE > 60.0 (>45); GLUCOSE, FASTING 119 MG/DL (70-100); LIPASE 35 U/L (73-393); MB/CK RELATIVE INDEX 9.09 (< OR =4); POTASSIUM SERUM 4.1 MEQ/L (3.5-5.1); SODIUM LEVEL 135 MEQ/L (136-145); TOTAL PROTEIN 7.1 GM/DL (6.4-8.2); TROPONIN I < 0.02 NG/ML (< 0.10)
[2020-05-31 14:45] LABS: RSV AMPLIFICATION NEGATIVE (NEGATIVE)
--- NOTE | 2020-05-31 15:53 | REP ---
INDICATION: obstruction COMPARISON: 05/30/2019 TECHNIQUE: Axial noncontrast images from the lung bases to the pubic symphysis with coronal and sagittal reformations. Oral contrast administered prior to imaging as per protocol. This CT examination was performed using the following dose reduction techniques: Automated exposure control, adjustment of mA and/or kv according to the patient's size, and use of iterative reconstruction technique. FINDINGS: Liver, spleen, pancreas, and bilateral adrenal glands are normal/stable by noncontrast evaluation. Left kidney includes 2 mm nonobstructing calculus without perinephric stranding or hydroureteronephrosis. Right kidney includes stable 2.8 cm cyst unchanged compared to 05/30/2019. Patient is noted to be status post partial left hemicolectomy with colostomy via the anterior abdominal wall and oversewn Eli's pouch in the pelvis. Moderate fecal stasis is suggested along with scattered colonic diverticula. The small bowel is unremarkable and without obstruction. There is no evidence for acute enteric inflammatory/infectious process. Pelvis demonstrates Wood catheter in collapsed bladder and age-appropriate uterus/adnexa. No ascites. No free air. No obvious adenopathy. Abdominal aorta without aneurysm. Musculoskeletal structures demonstrate degenerative changes without acute osseous abnormality IMPRESSION: 1. Evidence for prior partial left hemicolectomy with ostomy and oversewn Eli's pouch. Moderate fecal stasis through the colon. No evidence for bowel obstruction or acute inflammatory process. No free air. 2. No further acute abdominopelvic pathology appreciated. 3. Diverticulosis without acute diverticulitis. 4. Chronic changes as described above including right renal cyst and 2 mm nonobstructing left renal calculus. <Electronically signed by Sarbjit Parnell > 05/31/20 [id number]
[2020-05-31] MEDS ORDERED: SUBO4MIS SL (17:18)
[2020-05-31] MEDS ORDERED: NYSTATIN 100,000 UNITS/GM TOPICAL PWD 15 GM TOP PRN (19:15)
[2020-05-31] MEDS ORDERED: BISACODYL 5 MG TAB PO PRN (19:15)
[2020-05-31] MEDS ORDERED: IPRATROPIUM 0.5MG/ALBUTEROL 2.5MG INH SOL UD 3ML (DUONEB) INH PRN (19:15)
[2020-05-31] MEDS ORDERED: guaiFENesin SYRUP 200 MG/10 ML UDC PO PRN (19:15)
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
[2020-05-31] MEDS ORDERED: SENNA 8.6 MG TAB (SENOKOT) PO SCH (21:00)
[2020-05-31 21:01] VITALS: BP 118/66
[2020-05-31] MEDS: GABAPENTIN 300 MG CAP PO SCH (21:48)
[2020-05-31] MEDS: DOCUSATE SODIUM 100MG CAPSULE PO SCH (21:48)
[2020-05-31] MEDS: ATORVASTATIN 20 MG TAB PO SCH (21:48)
[2020-05-31] MEDS: METOCLOPRAMIDE 5 MG TAB PO SCH (21:48)
[2020-06-01] VITALS (11 sets, daily range): BP systolic 115–147; BP diastolic 65–77
[2020-06-01] MEDS: BUPRENORPHINE/NALOXONE 2-0.5MG SUBLINGUAL TABLET(SUBOXONE) SL SCH ×3 (00:28→21:24)
[2020-06-01] MEDS: ACETAMINOPHEN 325 MG TAB PO PRN ×3 (02:12→17:52)
[2020-06-01 03:07] LABS: BASO # 0.1 10^3/uL (0.0-0.2); BASO % 0.8 % (0.0-1.0); EOS # 0.7 10^3/uL (0.0-0.5); EOS % 5.6 % (0.0-3.0); HEMATOCRIT 24.6 % (36.0-47.0); HEMOGLOBIN 7.3 g/dl (12.0-15.5); LYMPH # 1.8 10^3/uL (1.5-5.0); LYMPH % 13.6 % (24.0-44.0); MEAN CORPUSCULAR HEMOGLOBIN 24.8 pg (27.0-33.0); MEAN CORPUSCULAR HGB CONC 29.7 g/dl (32.0-36.5); MEAN CORPUSCULAR VOLUME 83.7 fl (80.0-96.0); MONO # 1.6 10^3/uL (0.0-0.8); MONO % 12.6 % (0.0-5.0); NEUTROPHILS # 8.6 10^3/uL (1.5-8.5); NEUTROPHILS % 66.7 % (36.0-66.0); PLATELET COUNT, AUTOMATED 413 10^3/uL (150-450); RED BLOOD COUNT 2.94 10^6/uL (4.00-5.40)
[2020-06-01] MEDS: PIPERACILLIN/TAZOBACTAM SOD 4.5 GM in D5W MINI-BAG PLUS 50 ML IV SCH ×3 (03:10→16:00)
--- NOTE | 2020-06-01 04:23 | REPVR ---
PROCEDURE INFORMATION: Exam: XR Chest, 1 View Exam date and time: 06/01/2020 3:16 AM Age: 64 years old Clinical indication: Other vascular access device placement or adjustment; Central line, non-tunnelled; Additional info: S/P central line placement TECHNIQUE: Imaging protocol: XR of the chest Views: 1 view. COMPARISON: [facility] PORTABLE CHEST X-RAY 05/10/2020 5:00 PM FINDINGS: Lungs: Persistent bibasilar atelectasis. No new airspace infiltrates. Pleural space: Unremarkable. No pleural effusion. No pneumothorax. Heart/Mediastinum: Stable cardiomegaly. Tracheostomy is unchanged. Bones/joints: Changes of prior posterior spinal fusion are noted. IMPRESSION: No acute findings. Electronically signed by: Selvin Rojas On 06/01/2020 04:23:52 AM
[2020-06-01] MEDS ORDERED: VANCOMYCIN HCL 1,000 MG, VIAL MATE ADAPTER 1 EACH in D5W 250 ML IV ONE (05:00)
[2020-06-01] MEDS: VANCOMYCIN HCL 1,000 MG, VIAL MATE ADAPTER 1 EACH in D5W 250 ML IV SCH ×3 (06:03→23:07)
[2020-06-01] MEDS: LEVOTHYROXINE 50MCG TABLET (0.05MG) PO SCH (06:03)
[2020-06-01 07:37] LABS: HEMATOCRIT 25.3 % (36.0-47.0); HEMOGLOBIN 7.2 g/dl (12.0-15.5); MEAN CORPUSCULAR HEMOGLOBIN 24.1 pg (27.0-33.0); MEAN CORPUSCULAR HGB CONC 28.5 g/dl (32.0-36.5); MEAN CORPUSCULAR VOLUME 84.6 fl (80.0-96.0); PLATELET COUNT, AUTOMATED 445 10^3/uL (150-450); RED BLOOD COUNT 2.99 10^6/uL (4.00-5.40); WHITE BLOOD COUNT 11.9 10^3/uL (4.0-10.0)
[2020-06-01 08:08] LABS: BLOOD UREA NITROGEN 9 MG/DL (7-18); CALCIUM LEVEL 7.9 MG/DL (8.8-10.2); CARBON DIOXIDE LEVEL 33 MEQ/L (21-32); CHLORIDE LEVEL 98 MEQ/L (98-107); CREATININE FOR GFR 0.45 MG/DL (0.55-1.30); GLOMERULAR FILTRATION RATE > 60.0 (>45); GLUCOSE, FASTING 116 MG/DL (70-100); SODIUM LEVEL 135 MEQ/L (136-145)
[2020-06-01] MEDS ORDERED: MIRALAX *UNIT DOSE* 17GM PACKET PO SCH (09:00)
[2020-06-01] MEDS ORDERED: BUPRENORPHINE/NALOXONE 2-0.5MG SUBLINGUAL TABLET(SUBOXONE) SL SCH (09:00)
[2020-06-01] MEDS: CYANOCOBALAMIN 250 MCG TABLET PO SCH (09:11)
[2020-06-01] MEDS: ASPIRIN 81 MG ENTERIC TAB PO SCH (09:12)
[2020-06-01] MEDS: DULoxetine 30 MG CAP (CYMBALTA) PO SCH (09:12)
[2020-06-01] MEDS: GABAPENTIN 300 MG CAP PO SCH ×3 (09:12→20:44)
[2020-06-01] MEDS: FUROSEMIDE 40 MG TAB PO SCH (09:12)
[2020-06-01] MEDS: FOLIC ACID 1 MG TAB PO SCH (09:12)
[2020-06-01] MEDS: DOCUSATE SODIUM 100MG CAPSULE PO SCH ×2 (09:12→20:45)
[2020-06-01] MEDS: METOCLOPRAMIDE 5 MG TAB PO SCH ×2 (09:13→20:45)
[2020-06-01 10:01] LABS: FERRITIN 135 NG/ML (8-252); IRON (FE) 15 UG/DL (50-170); LDH LACTATE DEHYDROGENASE 146 U/L (84-246); PERCENT SATURATION 9.6 % (13.2-45.0); TOTAL IRON BINDING CAPACITY 157 UG/DL (250-450)
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
--- NOTE | 2020-06-01 10:49 | IPN ---
PROGRESS NOTE DATE: 06/01/2020 SUBJECTIVE: The patient is here for increased white count, however, fortunately her white count has dropped overnight down to 11.9 this morning. She did have a temperature spike last night but it seems like that is coming down and she has been afebrile this morning. She is not complaining of any abdominal pain. Her ostomy is not really putting out any drainage at this time other than some minimal bloody drainage. The ostomy was reevaluated again and has some necrosis and separation from the skin to the edges of the Kavita ostomy, however not current regressing. IMPRESSION/PLAN: Patient will need continued routine ostomy care and I am not sure of the etiology of the white count, although this would not be surprising that there is some element of inflammatory changes and slightly elevated white count with her ostomy necrosis but easily that could be coming from multiple other sources including her sacral decubitus ulcer, urinary tract/chronic indwelling catheter, etc. At this point, I would recommend to continue with supportive care at this time and I will discuss the patient with Dr. Crenshaw when he returns on Thursday.
[2020-06-01] MEDS: NS 1,000 ML IV SCH ×2 (12:11→14:08)
[2020-06-01] MEDS: SENNA 8.6 MG TAB (SENOKOT) PO SCH ×2 (12:12→20:44)
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
[2020-06-01] MEDS: ATORVASTATIN 20 MG TAB PO SCH (20:45)
[2020-06-01] MEDS: MIRALAX *UNIT DOSE* 17GM PACKET PO SCH (20:46)
[2020-06-02] VITALS: BP 126/86
[2020-06-02] MEDS: PIPERACILLIN/TAZOBACTAM SOD 4.5 GM in D5W MINI-BAG PLUS 50 ML IV SCH ×5 (00:20→23:12)
[2020-06-02] MEDS: ACETAMINOPHEN 325 MG TAB PO PRN ×2 (02:40→14:24)
[2020-06-02 06:00] VITALS: BP 104/67
[2020-06-02] MEDS: LEVOTHYROXINE 50MCG TABLET (0.05MG) PO SCH (06:27)
[2020-06-02] MEDS: VANCOMYCIN HCL 1,000 MG, VIAL MATE ADAPTER 1 EACH in D5W 250 ML IV SCH ×3 (06:27→21:37)
[2020-06-02 07:02] LABS: HEMATOCRIT 30.6 % (36.0-47.0); HEMOGLOBIN 9.1 g/dl (12.0-15.5); MEAN CORPUSCULAR HEMOGLOBIN 25.4 pg (27.0-33.0); MEAN CORPUSCULAR HGB CONC 29.7 g/dl (32.0-36.5); MEAN CORPUSCULAR VOLUME 85.5 fl (80.0-96.0); PLATELET COUNT, AUTOMATED 408 10^3/uL (150-450); RED BLOOD COUNT 3.58 10^6/uL (4.00-5.40)
[2020-06-02 07:26] LABS: BLOOD UREA NITROGEN 9 MG/DL (7-18); CARBON DIOXIDE LEVEL 34 MEQ/L (21-32); CHLORIDE LEVEL 100 MEQ/L (98-107); CREATININE FOR GFR 0.47 MG/DL (0.55-1.30); GLOMERULAR FILTRATION RATE > 60.0 (>45); GLUCOSE, FASTING 109 MG/DL (70-100); POTASSIUM SERUM 4.2 MEQ/L (3.5-5.1); SODIUM LEVEL 138 MEQ/L (136-145)
[2020-06-02] MEDS: CYANOCOBALAMIN 250 MCG TABLET PO SCH (08:37)
[2020-06-02] MEDS: GABAPENTIN 300 MG CAP PO SCH ×3 (08:37→20:24)
[2020-06-02] MEDS: BUPRENORPHINE/NALOXONE 2-0.5MG SUBLINGUAL TABLET(SUBOXONE) SL SCH ×2 (08:38→20:23)
[2020-06-02] MEDS: ASPIRIN 81 MG ENTERIC TAB PO SCH (08:38)
[2020-06-02] MEDS: DOCUSATE SODIUM 100MG CAPSULE PO SCH ×2 (08:38→20:24)
[2020-06-02] MEDS: DULoxetine 30 MG CAP (CYMBALTA) PO SCH (08:38)
[2020-06-02] MEDS: METOCLOPRAMIDE 5 MG TAB PO SCH ×2 (08:38→20:24)
[2020-06-02] MEDS: MIRALAX *UNIT DOSE* 17GM PACKET PO SCH ×2 (08:39→20:23)
[2020-06-02] MEDS: FOLIC ACID 1 MG TAB PO SCH (08:39)
[2020-06-02] MEDS: FUROSEMIDE 40 MG TAB PO SCH (08:39)
[2020-06-02] MEDS: SENNA 8.6 MG TAB (SENOKOT) PO SCH ×2 (08:39→20:23)
[2020-06-02 13:03] LABS: HEMATOCRIT 32.8 % (36.0-47.0); HEMOGLOBIN 9.7 g/dl (12.0-15.5); MEAN CORPUSCULAR HEMOGLOBIN 24.8 pg (27.0-33.0); MEAN CORPUSCULAR HGB CONC 29.6 g/dl (32.0-36.5); MEAN CORPUSCULAR VOLUME 83.9 fl (80.0-96.0); PLATELET COUNT, AUTOMATED 373 10^3/uL (150-450); RED BLOOD COUNT 3.91 10^6/uL (4.00-5.40)
[2020-06-02 14:00] VITALS: BP 144/82
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
[2020-06-02 18:00] VITALS: BP 141/87
[2020-06-02] MEDS: ATORVASTATIN 20 MG TAB PO SCH (20:23)
[2020-06-02] MEDS: NS 1,000 ML IV SCH (20:24)
[2020-06-02 22:00] VITALS: BP 156/84
[2020-06-03] MEDS: ACETAMINOPHEN 325 MG TAB PO PRN ×3 (00:05→21:41)
[2020-06-03] MEDS: PIPERACILLIN/TAZOBACTAM SOD 4.5 GM in D5W MINI-BAG PLUS 50 ML IV SCH ×4 (05:01→23:04)
[2020-06-03 05:36] LABS: HEMATOCRIT 30.7 % (36.0-47.0); HEMOGLOBIN 9.2 g/dl (12.0-15.5); MEAN CORPUSCULAR HEMOGLOBIN 25.5 pg (27.0-33.0); PLATELET COUNT, AUTOMATED 437 10^3/uL (150-450); RED BLOOD COUNT 3.61 10^6/uL (4.00-5.40); WHITE BLOOD COUNT 11.7 10^3/uL (4.0-10.0)
[2020-06-03 06:00] VITALS: BP 140/88
[2020-06-03 06:04] LABS: BLOOD UREA NITROGEN 7 MG/DL (7-18); CALCIUM LEVEL 7.9 MG/DL (8.8-10.2); CARBON DIOXIDE LEVEL 32 MEQ/L (21-32); CHLORIDE LEVEL 101 MEQ/L (98-107); CREATININE FOR GFR 0.43 MG/DL (0.55-1.30); GLOMERULAR FILTRATION RATE > 60.0 (>45); GLUCOSE, FASTING 91 MG/DL (70-100); MAGNESIUM LEVEL 1.9 MG/DL (1.8-2.4); POTASSIUM SERUM 3.7 MEQ/L (3.5-5.1); SODIUM LEVEL 137 MEQ/L (136-145); VANCOMYCIN LEVEL TROUGH 22.6 UG/ML (10.0-20.0)
[2020-06-03] MEDS: LEVOTHYROXINE 50MCG TABLET (0.05MG) PO SCH (06:17)
--- NOTE | 2020-06-03 08:10 | IPN ---
PROGRESS NOTE DATE: 06/02/2020 HISTORY: Patient was recently in the hospital and underwent debridement of a large perineal pressure sore. A diverting colostomy was created and she was discharged from the hospital just a few days ago. She returned on 05/31/2020 with some issues related to the colostomy. Partly she was probably having some constipation but some breakdown was noted of the periphery of the stoma. Vital signs show that she has been afebrile over the past 24 hours. Her pulse is in the 80s to low 100s. Blood pressures are good. Intake and output shows that yesterday she had 4300 in with 3100 out. She has had some stool from her stoma today. PHYSICAL EXAMINATION: The patient is sitting up in the bed looking fairly comfortable. She has her trach in place and is breathing easily. The abdomen is obese but soft. Her ostomy exam shows that the periphery of her stoma appears to have partially sloughed but there is also some separation of the stoma around the edge from the skin. There is some old blood in this area. There is a small amount of solid stool coming from the stoma. Unfortunately, the stoma appears fairly flat at this point and there is some separation of the stoma wafer from the skin at the edges. LABORATORY STUDIES: Shows a white count of 11, hemoglobin 9, hematocrit 31, and a platelet count of 408,000. Chemistry profile shows sodium 138, potassium 4.2, chloride 100, CO2 of 34, BUN of 9, creatinine 0.47, and a glucose of 109. Her only pertinent culture is a urine culture that is growing Pseudomonas aeruginosa from 05/31/2020. IMPRESSION/PLAN: Patient appears to be responding to some additional bowel care with some output of stool from her stoma. Unfortunately, there is some significant breakdown of the periphery of the stoma and this may cause problems for ostomy appliance fit. We will need to continue to monitor this. I will leave management of the urinary tract infection and the antibiotics to the hospitalist. MICHAEL
[2020-06-03] MEDS: CYANOCOBALAMIN 250 MCG TABLET PO SCH (09:51)
[2020-06-03] MEDS: FOLIC ACID 1 MG TAB PO SCH (09:51)
[2020-06-03] MEDS: FUROSEMIDE 40 MG TAB PO SCH (09:51)
[2020-06-03] MEDS: SENNA 8.6 MG TAB (SENOKOT) PO SCH ×2 (09:51→21:41)
[2020-06-03] MEDS: DOCUSATE SODIUM 100MG CAPSULE PO SCH ×2 (09:51→21:42)
[2020-06-03] MEDS: MIRALAX *UNIT DOSE* 17GM PACKET PO SCH ×2 (09:52→21:42)
[2020-06-03] MEDS: DULoxetine 30 MG CAP (CYMBALTA) PO SCH (09:52)
[2020-06-03] MEDS: ASPIRIN 81 MG ENTERIC TAB PO SCH (09:52)
[2020-06-03] MEDS: GABAPENTIN 300 MG CAP PO SCH ×3 (09:52→21:42)
[2020-06-03] MEDS: METOCLOPRAMIDE 5 MG TAB PO SCH ×2 (09:52→21:41)
[2020-06-03] MEDS: BUPRENORPHINE/NALOXONE 2-0.5MG SUBLINGUAL TABLET(SUBOXONE) SL SCH ×2 (09:57→21:41)
[2020-06-03] MEDS ORDERED: VANCOMYCIN HCL 1,000 MG, VIAL MATE ADAPTER 1 EACH in D5W 250 ML IV SCH (10:00)
[2020-06-03 14:00] VITALS: BP 132/91
[2020-06-03] MEDS: NS 1,000 ML IV SCH (14:00)
[2020-06-03] MEDS: methocarbamoL 500 MG TAB PO PRN (19:35)
[2020-06-03 20:00] VITALS: BP 152/85
[2020-06-03] MEDS: ATORVASTATIN 20 MG TAB PO SCH (21:41)
[2020-06-03 22:00] VITALS: BP 152/85
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
[2020-06-04] MEDS: PIPERACILLIN/TAZOBACTAM SOD 4.5 GM in D5W MINI-BAG PLUS 50 ML IV SCH ×4 (05:18→22:37)
[2020-06-04] MEDS: LEVOTHYROXINE 50MCG TABLET (0.05MG) PO SCH (05:18)
[2020-06-04 06:00] VITALS: BP 125/75
[2020-06-04 06:48] LABS: HEMATOCRIT 30.6 % (36.0-47.0); HEMOGLOBIN 9.1 g/dl (12.0-15.5); MEAN CORPUSCULAR HEMOGLOBIN 25.4 pg (27.0-33.0); MEAN CORPUSCULAR HGB CONC 29.7 g/dl (32.0-36.5); MEAN CORPUSCULAR VOLUME 85.5 fl (80.0-96.0); PLATELET COUNT, AUTOMATED 425 10^3/uL (150-450); RED BLOOD COUNT 3.58 10^6/uL (4.00-5.40); WHITE BLOOD COUNT 11.2 10^3/uL (4.0-10.0)
[2020-06-04] MEDS: methocarbamoL 500 MG TAB PO PRN ×2 (06:50→17:01)
[2020-06-04] MEDS: ACETAMINOPHEN 325 MG TAB PO PRN ×2 (06:51→13:48)
[2020-06-04 07:09] LABS: BLOOD UREA NITROGEN 8 MG/DL (7-18); CALCIUM LEVEL 7.9 MG/DL (8.8-10.2); CARBON DIOXIDE LEVEL 32 MEQ/L (21-32); CHLORIDE LEVEL 100 MEQ/L (98-107); CREATININE FOR GFR 0.52 MG/DL (0.55-1.30); GLOMERULAR FILTRATION RATE > 60.0 (>45); GLUCOSE, FASTING 114 MG/DL (70-100); POTASSIUM SERUM 3.7 MEQ/L (3.5-5.1); SODIUM LEVEL 138 MEQ/L (136-145)
[2020-06-04] MEDS: MIRALAX *UNIT DOSE* 17GM PACKET PO SCH ×2 (08:31→20:33)
[2020-06-04] MEDS: GABAPENTIN 300 MG CAP PO SCH ×3 (08:32→20:34)
[2020-06-04] MEDS: BUPRENORPHINE/NALOXONE 2-0.5MG SUBLINGUAL TABLET(SUBOXONE) SL SCH ×2 (08:32→20:33)
[2020-06-04] MEDS: DOCUSATE SODIUM 100MG CAPSULE PO SCH ×2 (08:32→20:34)
[2020-06-04] MEDS: FUROSEMIDE 40 MG TAB PO SCH (08:32)
[2020-06-04] MEDS: METOCLOPRAMIDE 5 MG TAB PO SCH ×2 (08:33→20:34)
[2020-06-04] MEDS: DULoxetine 30 MG CAP (CYMBALTA) PO SCH (08:33)
[2020-06-04] MEDS: SENNA 8.6 MG TAB (SENOKOT) PO SCH ×2 (08:33→20:34)
[2020-06-04] MEDS: ASPIRIN 81 MG ENTERIC TAB PO SCH (08:33)
[2020-06-04] MEDS: FOLIC ACID 1 MG TAB PO SCH (08:33)
[2020-06-04] MEDS: CYANOCOBALAMIN 250 MCG TABLET PO SCH (08:33)
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
[2020-06-04] MEDS: NS 1,000 ML IV SCH ×2 (13:34→22:37)
[2020-06-04 14:00] VITALS: BP 165/80
[2020-06-04] MEDS: ATORVASTATIN 20 MG TAB PO SCH (20:34)
[2020-06-04 21:00] VITALS: BP 163/80
[2020-06-05] MEDS: ACETAMINOPHEN 325 MG TAB PO PRN ×2 (01:10→17:43)
[2020-06-05] MEDS: LEVOTHYROXINE 50MCG TABLET (0.05MG) PO SCH (05:43)
[2020-06-05] MEDS: PIPERACILLIN/TAZOBACTAM SOD 4.5 GM in D5W MINI-BAG PLUS 50 ML IV SCH ×4 (05:44→22:16)
[2020-06-05 06:00] VITALS: BP 118/71
[2020-06-05 07:02] LABS: HEMOGLOBIN 9.3 g/dl (12.0-15.5); MEAN CORPUSCULAR HEMOGLOBIN 25.6 pg (27.0-33.0); MEAN CORPUSCULAR VOLUME 85.4 fl (80.0-96.0); PLATELET COUNT, AUTOMATED 412 10^3/uL (150-450); RED BLOOD COUNT 3.63 10^6/uL (4.00-5.40); WHITE BLOOD COUNT 11.9 10^3/uL (4.0-10.0)
[2020-06-05 07:24] LABS: BLOOD UREA NITROGEN 7 MG/DL (7-18); CALCIUM LEVEL 7.9 MG/DL (8.8-10.2); CARBON DIOXIDE LEVEL 33 MEQ/L (21-32); CHLORIDE LEVEL 100 MEQ/L (98-107); CREATININE FOR GFR 0.38 MG/DL (0.55-1.30); GLOMERULAR FILTRATION RATE > 60.0 (>45); GLUCOSE, FASTING 91 MG/DL (70-100); POTASSIUM SERUM 3.5 MEQ/L (3.5-5.1); SODIUM LEVEL 137 MEQ/L (136-145)
--- NOTE | 2020-06-05 08:19 | IPNPDOC ---
Text Note Date of Service The patient was seen on 06/04/20. NOTE I was informed the patient was readmitted shortly after discharge for what della ears to be constipation/fecal impaction problems was noted to have some sloughing of her ostomy site. She continues to be on wound VAC negative pressure therapy for her large decubiti wound. I reexamined her today with her nurses to look at both the colostomy and the wound. On examination of her ostomy wound, the colostomy still has some mild leftover swelling. She is about 3 weeks postop. There is almost a circumferential mucocutaneous separation of the ostomy and the skin edges most prominent laterally. She probably had some mild retraction of the colostomy though this is still outward. There is some palpable thickening subcutaneously which could be hematoma versus swelling of the mesentery versus desiccated subcutaneous fat tissue. There is no fluctuance. Surrounding skin shows no erythema, slight irritation from the wafer. I asked the nurse where she leaks and she leaks in both medial and lateral side seems to be. I saw the stool and this seems to be soft time he formed brown no blood. She was then turned and I examined sacral coccygeal wound. This outwardly mashers 12 cm vertically, 11 cm transversely, about 5-6 cm in depth. With her on her back at about the 12 to 3 o'clock position measures at most about 2-3 cm undermining. The wound is to the bone at the level of the lower sacrum and coccyx at the middle to the muscles laterally especially most prominent on the left of the midline. There is still some whitish fibrous tissue over the left side. The exposed subcutaneous tissue in the right side shows good granulation. There is a small amount of desiccated, dried fat subcutaneous tissue on the lower margin which I debrided area there is no foul drainage. Surrounding skin shows some moderate maceration probably slightly cage of the wound VAC. It seems to be she is laying down on the tubing so the tubing makes a deep caterina on the skin but there is no skin breakdown with this. Wound is about 1.5 cm from the opening of the anal verge. Recommendations: For the ostomy place and maria guadalupe bridge to the edge of the ostomy to protect the skin adjacent to the edge of the ostomy. This may still retract a little bit as the swelling goes down but is not clear yet whether this needs to be revised or not. Continue with aggressive bowel regimen on her as she is prone to constipation, probably fecal impaction. I told her that it is normal to expect some cramping prior to expulsion of the stool specially if there are hard stools that she would pass. For the wound, I debrided the lower portion of the wound likewise the fibrous portion of the wound bed. I noted a little separation of the coccyx bone to the sacrum so I wasn't too aggressive on that area. I gave instructions to the nurse to put 2 with the arm at the lower edge of the wound essentially to call where the anal opening so this will seal the wound better. I also instructed them to make a foam track laterally so the tubing does not get later on by the patient which may cause more 1 problems. There are extensive area of maceration may be from leaking of the wound. If this is dry Maria Guadalupe place nystatin powder with wound VAC change and allow this to dry low bit. If this is wet or weeping apply zinc containing cream as a protective barrier. Apply white foam to the area of skin undermining. This will need intermittent debridements. Unfortunately I won't be able to do this in the office. My office is not a [facility] and manned to be able to do it especially that she needs to be turned probably on her stretcher in the office. I asked the nurse to give Dr. Reed's office call to evaluate the wound and see if they could to the debridements every week or every other week. And see if they have other recommendations. VS,Fishbone, I+O VS, Fishbone, I+O Laboratory Tests 06/05/20 06:28 Vital Signs Date Time Temp Pulse Resp B/P (MAP) Pulse Ox O2 Delivery O2 Flow Rate FiO2 06/05/20 06:00 97.9 94 20 118/71 (87) 98 Trach Collar 6.0 06/04/20 09:00 35 I&O- Last 24 Hours up to 6 AM 06/05/20 06:00 Intake Total 2410 ml Output Total 1175 ml Balance 1235 ml KOREY VALADEZ MD Jun 05, 2020 08:19
[2020-06-05] MEDS: METOCLOPRAMIDE 5 MG TAB PO SCH ×2 (09:58→20:42)
[2020-06-05] MEDS: ASPIRIN 81 MG ENTERIC TAB PO SCH (09:58)
[2020-06-05] MEDS: CYANOCOBALAMIN 250 MCG TABLET PO SCH (09:58)
[2020-06-05] MEDS: SENNA 8.6 MG TAB (SENOKOT) PO SCH ×2 (09:58→20:42)
[2020-06-05] MEDS: BUPRENORPHINE/NALOXONE 2-0.5MG SUBLINGUAL TABLET(SUBOXONE) SL SCH ×2 (09:59→20:42)
[2020-06-05] MEDS: GABAPENTIN 300 MG CAP PO SCH ×3 (09:59→20:42)
[2020-06-05] MEDS: DULoxetine 30 MG CAP (CYMBALTA) PO SCH (09:59)
[2020-06-05] MEDS: MIRALAX *UNIT DOSE* 17GM PACKET PO SCH ×3 (09:59→20:47)
[2020-06-05] MEDS: DOCUSATE SODIUM 100MG CAPSULE PO SCH ×2 (09:59→20:42)
[2020-06-05] MEDS: FOLIC ACID 1 MG TAB PO SCH (09:59)
[2020-06-05] MEDS: FUROSEMIDE 40 MG TAB PO SCH (09:59)
[2020-06-05] MEDS: methocarbamoL 500 MG TAB PO PRN ×2 (10:05→17:43)
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
[2020-06-05] MEDS: ATORVASTATIN 20 MG TAB PO SCH (20:41)
[2020-06-05 22:00] VITALS: BP 152/83
[2020-06-05] MEDS: HEPARIN SOD (PORCINE) 5000UNITS/ML 1ML VIAL/SYRINGE SQ SCH (22:15)
[2020-06-06] MEDS: POLYVINYL ALCOHOL OPHTH SOLN 15 ML(LIQUITEARS) OU PRN (00:16)
[2020-06-06] MEDS: PIPERACILLIN/TAZOBACTAM SOD 4.5 GM in D5W MINI-BAG PLUS 50 ML IV SCH ×4 (05:56→22:27)
[2020-06-06] MEDS: LEVOTHYROXINE 50MCG TABLET (0.05MG) PO SCH (05:56)
[2020-06-06] MEDS: HEPARIN SOD (PORCINE) 5000UNITS/ML 1ML VIAL/SYRINGE SQ SCH ×3 (05:56→22:28)
[2020-06-06 06:00] VITALS: BP 125/70
[2020-06-06] MEDS: SENNA 8.6 MG TAB (SENOKOT) PO SCH ×2 (07:46→20:08)
[2020-06-06] MEDS: MIRALAX *UNIT DOSE* 17GM PACKET PO SCH ×2 (07:46→20:11)
[2020-06-06] MEDS: ASPIRIN 81 MG ENTERIC TAB PO SCH (07:56)
[2020-06-06] MEDS: DOCUSATE SODIUM 100MG CAPSULE PO SCH ×2 (07:56→20:07)
[2020-06-06] MEDS: BUPRENORPHINE/NALOXONE 2-0.5MG SUBLINGUAL TABLET(SUBOXONE) SL SCH ×2 (07:56→20:08)
[2020-06-06] MEDS: GABAPENTIN 300 MG CAP PO SCH ×3 (07:56→20:08)
[2020-06-06] MEDS: DULoxetine 30 MG CAP (CYMBALTA) PO SCH (07:57)
[2020-06-06] MEDS: METOCLOPRAMIDE 5 MG TAB PO SCH ×2 (07:58→20:07)
[2020-06-06] MEDS: FUROSEMIDE 40 MG TAB PO SCH (07:58)
[2020-06-06] MEDS: FOLIC ACID 1 MG TAB PO SCH (07:58)
[2020-06-06] MEDS: CYANOCOBALAMIN 250 MCG TABLET PO SCH (07:58)
[2020-06-06] MEDS: ACETAMINOPHEN 325 MG TAB PO PRN (12:45)
[2020-06-06] MEDS: methocarbamoL 500 MG TAB PO PRN ×2 (12:45→20:07)
[2020-06-06 14:00] VITALS: BP 143/90
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
[2020-06-06] MEDS: ATORVASTATIN 20 MG TAB PO SCH (20:07)
[2020-06-06 22:00] VITALS: BP 141/91
[2020-06-06] MEDS: hydrOXYzine 25 MG TAB PO PRN (22:28)
[2020-06-07] MEDS: PIPERACILLIN/TAZOBACTAM SOD 4.5 GM in D5W MINI-BAG PLUS 50 ML IV SCH ×2 (04:43→11:27)
[2020-06-07] MEDS: ACETAMINOPHEN 325 MG TAB PO PRN ×2 (04:44→15:00)
[2020-06-07] MEDS: HEPARIN SOD (PORCINE) 5000UNITS/ML 1ML VIAL/SYRINGE SQ SCH ×3 (05:32→21:13)
[2020-06-07] MEDS: LEVOTHYROXINE 50MCG TABLET (0.05MG) PO SCH (05:32)
[2020-06-07 06:00] VITALS: BP 144/81
[2020-06-07] MEDS: CYANOCOBALAMIN 250 MCG TABLET PO SCH (08:23)
[2020-06-07] MEDS: MIRALAX *UNIT DOSE* 17GM PACKET PO SCH ×2 (08:23→21:00)
[2020-06-07] MEDS: DOCUSATE SODIUM 100MG CAPSULE PO SCH ×2 (08:23→21:00)
[2020-06-07] MEDS: SENNA 8.6 MG TAB (SENOKOT) PO SCH ×2 (08:23→21:00)
[2020-06-07] MEDS: ASPIRIN 81 MG ENTERIC TAB PO SCH (08:23)
[2020-06-07] MEDS: BUPRENORPHINE/NALOXONE 2-0.5MG SUBLINGUAL TABLET(SUBOXONE) SL SCH ×2 (08:23→21:12)
[2020-06-07] MEDS: FOLIC ACID 1 MG TAB PO SCH (08:24)
[2020-06-07] MEDS: METOCLOPRAMIDE 5 MG TAB PO SCH ×2 (08:24→21:11)
[2020-06-07] MEDS: DULoxetine 30 MG CAP (CYMBALTA) PO SCH (08:24)
[2020-06-07] MEDS: GABAPENTIN 300 MG CAP PO SCH ×3 (08:24→21:12)
[2020-06-07] MEDS: FUROSEMIDE 40 MG TAB PO SCH (08:25)
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
[2020-06-07] MEDS: methocarbamoL 500 MG TAB PO PRN (15:00)
[2020-06-07] MEDS: ATORVASTATIN 20 MG TAB PO SCH (21:11)
[2020-06-07] MEDS: POLYVINYL ALCOHOL OPHTH SOLN 15 ML(LIQUITEARS) OU PRN (21:13)
[2020-06-07 22:00] VITALS: BP 144/78
[2020-06-08] MEDS: ACETAMINOPHEN 325 MG TAB PO PRN ×2 (01:41→21:11)
[2020-06-08] MEDS: HEPARIN SOD (PORCINE) 5000UNITS/ML 1ML VIAL/SYRINGE SQ SCH ×3 (05:53→21:10)
[2020-06-08] MEDS: LEVOTHYROXINE 50MCG TABLET (0.05MG) PO SCH (05:53)
[2020-06-08 06:00] VITALS: BP 142/76
[2020-06-08] MEDS: MIRALAX *UNIT DOSE* 17GM PACKET PO SCH (08:30)
[2020-06-08] MEDS: DOCUSATE SODIUM 100MG CAPSULE PO SCH ×2 (08:30→21:00)
[2020-06-08] MEDS: SENNA 8.6 MG TAB (SENOKOT) PO SCH ×2 (08:30→21:00)
[2020-06-08] MEDS: BUPRENORPHINE/NALOXONE 2-0.5MG SUBLINGUAL TABLET(SUBOXONE) SL SCH ×2 (08:31→21:10)
[2020-06-08] MEDS: GABAPENTIN 300 MG CAP PO SCH ×3 (08:48→21:09)
[2020-06-08] MEDS ORDERED: ONDANSETRON 4MG/2ML VIAL As Ordered ONE (09:13)
[2020-06-08] MEDS ORDERED: LIDOCAINE 2% 100MG/5ML SDV (FOR ANES.) As Ordered ONE (09:13)
[2020-06-08] MEDS ORDERED: ACETAMINOPHEN 1000MG 100ML IV BTL (OFIRMEV) (J0131 PER 10MG) As Ordered ONE (09:13)
[2020-06-08] MEDS ORDERED: ROCURONIUM BROMIDE 50 MG/5 ML VIAL As Ordered ONE (09:13)
[2020-06-08] MEDS ORDERED: SUGAMMADEX SODIUM 500 MG/5 ML VIAL (BRIDION) As Ordered ONE (09:13)
[2020-06-08] MEDS ORDERED: dexameTHASONE 4 MG/ML 1ML VIAL (J1100 PER 1MG) As Ordered ONE (09:13)
[2020-06-08] MEDS ORDERED: propofoL 200 MG/20 ML VIAL As Ordered ONE (09:13)
[2020-06-08] MEDS ORDERED: KETOROLAC 60MG 2ML VIAL As Ordered ONE (09:13)
[2020-06-08] MEDS ORDERED: fentaNYL 100 MCG/2 ML INJECTION (J3010) As Ordered ONE (09:13)
[2020-06-08] MEDS ORDERED: MIDAZOLAM INJ 2MG/2ML VIAL (J2250 PER 1MG) As Ordered ONE (09:14)
[2020-06-08 09:23] VITALS: BP 153/89
[2020-06-08] MEDS ORDERED: MIRALAX *UNIT DOSE* 17GM PACKET PO PRN (10:00)
--- NOTE | 2020-06-08 10:29 | IPNPDOC ---
Text Note Date of Service The patient was seen on 06/08/20. NOTE Patient seen at the preoperative holding area. I was asked to re-debride her decubiti ulcer after she was seen (telemedicine) by our wound care surgeon. Otherwise she seems to be doing well. Her colostomy is working. Nurses are reporting the stool maybe too loose as the appliance seem to leak frequently. She is having some abdominal cramping with passage of stool and gas. On exam looks comfortable She has a long standing trach (capped with passy-orlin valve). She is able to eat with the tracheostomy in place. abdomen is obese, mildly distended with prominece around the upper abdomen. Ostomy seems to be well placed but there is mucocutaneous separation, still mildly swollen. Appliance well placed. Brown semi loose stool in bag. sacral wound with a wound vac Plan: I will bring her to the OR for further wound debridement. I reviewed the notes of Dr. Reed. He wants the area of undermining excised. She has a wide area of fibrous tissue covering part of the wound bed and some small amount of dessicated fat tissue inferiorly. Consent obtained from the patient. This will need serial debridement at the wound care clinic. VS,Fishbone, I+O VS, Fishbone, I+O Vital Signs Date Time Temp Pulse Resp B/P (MAP) Pulse Ox O2 Delivery O2 Flow Rate FiO2 06/08/20 09:23 98.1 94 17 153/89 (110) 95 Room Air 06/07/20 09:00 8.0 35 I&O- Last 24 Hours up to 6 AM 06/08/20 06:00 Intake Total 1470 ml Output Total 2150 ml Balance -680 ml KOREY VALADEZ MD Jun 08, 2020 10:29
[2020-06-08] MEDS ORDERED: BUPIVACAINE HCL 0.25% 30ML VIAL As Ordered ONE (11:10)
[2020-06-08] MEDS ORDERED: fentaNYL 100 MCG/2 ML INJECTION (J3010) IV PRN (12:45)
[2020-06-08] MEDS ORDERED: oxyCODONE 5MG TAB PO PRN (12:45)
[2020-06-08] MEDS ORDERED: ONDANSETRON 4MG/2ML VIAL IV PRN (12:45)
[2020-06-08] MEDS ORDERED: LR 1,000 ML IV SCH (12:45)
[2020-06-08] MEDS ORDERED: oxyCODONE 5MG TAB As Ordered ONE (13:13)
[2020-06-08] MEDS: CYANOCOBALAMIN 250 MCG TABLET PO SCH (13:48)
[2020-06-08] MEDS: FOLIC ACID 1 MG TAB PO SCH (13:48)
[2020-06-08] MEDS: ASPIRIN 81 MG ENTERIC TAB PO SCH (13:48)
[2020-06-08] MEDS: METOCLOPRAMIDE 5 MG TAB PO SCH ×2 (13:48→21:10)
[2020-06-08] MEDS: DULoxetine 30 MG CAP (CYMBALTA) PO SCH (13:48)
[2020-06-08] MEDS: FUROSEMIDE 40 MG TAB PO SCH (13:49)
[2020-06-08 14:00] VITALS: BP 163/94
[2020-06-08] MEDS: methocarbamoL 500 MG TAB PO PRN (16:18)
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
[2020-06-08] MEDS: ATORVASTATIN 20 MG TAB PO SCH (21:10)
[2020-06-08 22:00] VITALS: BP 161/84
[2020-06-08] MEDS: hydrOXYzine 25 MG TAB PO PRN (22:22)
[2020-06-09] MEDS: HEPARIN SOD (PORCINE) 5000UNITS/ML 1ML VIAL/SYRINGE SQ SCH (05:30)
[2020-06-09] MEDS: LEVOTHYROXINE 50MCG TABLET (0.05MG) PO SCH (05:30)
[2020-06-09] MEDS: methocarbamoL 500 MG TAB PO PRN ×2 (05:30→11:35)
[2020-06-09 06:00] VITALS: BP 152/86
[2020-06-09 06:46] LABS: BASO # 0.1 10^3/uL (0.0-0.2); EOS % 8.2 % (0.0-3.0); HEMATOCRIT 33.1 % (36.0-47.0); LYMPH # 2.3 10^3/uL (1.5-5.0); LYMPH % 18.5 % (24.0-44.0); MEAN CORPUSCULAR HEMOGLOBIN 26.1 pg (27.0-33.0); MEAN CORPUSCULAR HGB CONC 30.2 g/dl (32.0-36.5); MEAN CORPUSCULAR VOLUME 86.4 fl (80.0-96.0); MONO # 1.4 10^3/uL (0.0-0.8); NEUTROPHILS # 7.5 10^3/uL (1.5-8.5); NEUTROPHILS % 60.6 % (36.0-66.0); PLATELET COUNT, AUTOMATED 443 10^3/uL (150-450); RED BLOOD COUNT 3.83 10^6/uL (4.00-5.40); WHITE BLOOD COUNT 12.4 10^3/uL (4.0-10.0)
[2020-06-09 07:05] LABS: BLOOD UREA NITROGEN 10 MG/DL (7-18); CALCIUM LEVEL 8.1 MG/DL (8.8-10.2); CARBON DIOXIDE LEVEL 31 MEQ/L (21-32); CHLORIDE LEVEL 103 MEQ/L (98-107); CREATININE FOR GFR 0.45 MG/DL (0.55-1.30); GLOMERULAR FILTRATION RATE > 60.0 (>45); GLUCOSE, FASTING 143 MG/DL (70-100); POTASSIUM SERUM 3.9 MEQ/L (3.5-5.1); SODIUM LEVEL 141 MEQ/L (136-145)
[2020-06-09] MEDS: GABAPENTIN 300 MG CAP PO SCH (08:07)
[2020-06-09] MEDS: ASPIRIN 81 MG ENTERIC TAB PO SCH (08:07)
[2020-06-09] MEDS: FOLIC ACID 1 MG TAB PO SCH (08:07)
[2020-06-09] MEDS: CYANOCOBALAMIN 250 MCG TABLET PO SCH (08:07)
[2020-06-09] MEDS: DOCUSATE SODIUM 100MG CAPSULE PO SCH (08:07)
[2020-06-09] MEDS: SENNA 8.6 MG TAB (SENOKOT) PO SCH (08:07)
[2020-06-09] MEDS: FUROSEMIDE 40 MG TAB PO SCH (08:07)
[2020-06-09] MEDS: DULoxetine 30 MG CAP (CYMBALTA) PO SCH (08:07)
[2020-06-09] MEDS: BUPRENORPHINE/NALOXONE 2-0.5MG SUBLINGUAL TABLET(SUBOXONE) SL SCH (08:08)
[2020-06-09] MEDS: METOCLOPRAMIDE 5 MG TAB PO SCH (08:08)
[2020-06-09] MEDS ORDERED: ONDANSETRON 4MG/2ML VIAL IV PRN (10:00)
[2020-06-09] MEDS ORDERED: SENN18TA PO (11:14)
[2020-06-09] MEDS ORDERED: PEG1POW PO (11:14)
[2020-06-09] MEDS ORDERED: ZOFR4TAB16 PO (11:14)
[2020-06-09] MEDS ORDERED: TIZA2CAP PO (11:17)
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
--- NOTE | 2020-07-02 10:44 | ROOPDOC ---
[facility] Report Of Operation Report of Operation DATE OF PROCEDURE: 06/08/20 PREPROCEDURE DIAGNOSES: large sacrococcygeal decubiti ulcer stage IV POSTPROCEDURE DIAGNOSES: same. PROCEDURE: Excisional debridment of sacroccocygeal decubiti ulcer, placement of wound vac (subsequent). SURGEON: Bg Crenshaw MD PIN MAKER: MD ANESTHESIA: Monitored Anesthesia Care with local anesthesia ESTIMATED BLOOD LOSS: Approximately 20 mL. COMPLICATIONS: . REMARKS: 15 transverse, 11 vertical 8 cms depth to the bone with partial dislocation tip of the coccyx (removed) PROCEDURE NOTE: . DESCRIPTION OF PROCEDURE: Patient is brought to the operating room. She is on continued antibiotics both for her UTI and for wound infection on her sacral decubitus. She was placed on a left lateral decubitus position with her pressure points padded on a beanbag to hold her in place. She has a long-standing tracheostomy tube and this was connected to the ventilator and anesthesia provided. Sequential Compression Boots placed on both lower extremities for DVT prophylaxis. The wound VAC was removed. The area prepped and draped in the usual sterile fashion using Betadine.We paused for a surgical timeout using both pre-incision safety checklist to verify correct patient, procedure site and additional clinical information prior to beginning the procedure I have previously debrided the wound and have placed a wound VAC during the last time that brought her to the operating room. She continues to be in the wound VAC and on follow-up examination has some necrotic tissues over the right side of the wound progress. This is mainly made-up of fibrous tissue covering the sacrum and coccyx as well as some undermining of the deeper subcutaneous tissue at about the 9 to 12 o'clock position. There is no surrounding skin erythema. There is no purulent drainage. The left side of the wound is showing good granulation tissue formation at the wound bed but some small amount of desiccated/dried-up subcutaneous tissue on the more superficial portion. The real subcutaneous teens placement of local anesthesia using a combination of 1% lidocaine mixed with 1/4% Marcaine was placed into the wound and the surrounding subcutaneous tissue. Initial measurements show a 10 cm vertical, 10- 12 cm transverse and 8 cm depth. I began by sharply excising the dried-up, desiccated adipose tissue over on the left side which was minimal. Most of the wound bed is clean with beginning granulation tissue formation. Up at the middle portion of the wound this is down to the sacrum. At the lower portion of this area there is progression/necrosis of mostly fibrous tissue surrounding the area. This goes down deep and close to the anal opening which is only about 2 cm from the lower edge of the wound. I further debrided this and I could feel some loose bony tissue from the tip of the coccyx and this was also excised sharply with Bovie cautery and with Rangeur. I continued over the lower right portion of the wound taking more subcutaneous tissue and more of the fibrous tissue overlying the sacrum. There is about a 4 cm undermining over this area and there is some progression of the subcutaneous tissue which is liquefied and necrosed. The skin and underlying subcutaneous tissue on the undermined portion of the wound was removed to allow for better healing in the area. The necrotic subcutaneous tissue was likewise sharply excised. After removing the grossly necrotic tissue I used about 3 cautery pads as my curette and scrubbed the wound bed to remove loose necrotic tissues further. After this we irrigated the wound and checked for hemostasis. Once satisfied, measured the wound. This now measures 15 cm transversely, 11 cm vertically and still about 8 cm depth to the bone with most of the wound bed to that depth. I again placed a wound VAC over this large wound. I placed DuoDERM is in the lower portion of the wound to cover the anal opening and to create a seal on the bottom portion. Sterile drapes were placed on top of the wound and passed the surrounding skin to protect the periwound and I created a tract to the right side. The black wound VAC foam was used to over the whole of the wound. A seal was then created and tested. A wound VAC was turned on and the seal was examined. There was good continuous suction at 1 25 mmHg setting. There was no noticeable leakage. Patient was 10 promptly awakened, disconnected from the ventilator and transferred to her bed and to the recovery room in stable condition. BG CRENSHAW MD Jun 09, 2020 10:03
== END 2020-06-09 12:10 | disposition home health service (06) | DRG 252 ==
LOC: M ED 12:48 → EDBD 12:48 → M ED INP 17:40 → M MSPAV 21:02
PROVIDERS: ADMIT Internal Medicine; ATTEND Internal Medicine
PROC: 30233N1 Transfusion of Nonautologous Red Blood Cells into Peripheral Vein, Percutaneous Approach (ICD-10-PCS; 2020-06-01)
PROC: 0JB70ZZ Excision of Back Subcutaneous Tissue and Fascia, Open Approach (ICD-10-PCS; principal; 2020-06-08 10:30)
DX: K94.09 Other complications of colostomy (principal); L89.154 Pressure ulcer of sacral region, stage 4; G82.20 Paraplegia, unspecified; I11.0 Hypertensive heart disease with heart failure; Z93.0 Tracheostomy status; E11.40 Type 2 diabetes mellitus with diabetic neuropathy, unspecified; D62 Acute posthemorrhagic anemia; I50.32 Chronic diastolic (congestive) heart failure; N31.9 Neuromuscular dysfunction of bladder, unspecified; E66.01 Morbid (severe) obesity due to excess calories; B96.5 Pseudomonas (aeruginosa) (mallei) (pseudomallei) as the cause of diseases classified elsewhere; T83.518A Infection and inflammatory reaction due to other urinary catheter, initial encounter; Z68.41 Body mass index [BMI] 40.0-44.9, adult; G89.29 Other chronic pain; Z68.39 Body mass index [BMI] 39.0-39.9, adult; K59.09 Other constipation; Z79.82 Long term (current) use of aspirin; Z79.899 Other long term (current) drug therapy; Z86.14 Personal history of Methicillin resistant Staphylococcus aureus infection; Z90.49 Acquired absence of other specified parts of digestive tract; Z20.822 Contact with and (suspected) exposure to COVID-19

== ENCOUNTER → 2020-06-18 | Outpatient (CLI) | payer OTHER ==
[~2020-06-18] MED LIST changes: +ASPI-569 PO; -ASPI81TAEC PO; +BISAC5TA PO; +COLA100C5 PO; +FAMO20TA PO; +HYDR-3490 PO; -HYDR25TAB PO; +LISI10TA22 PO; -LISI10TA4 PO; +MELA3TAB30 PO; +METH-1164 PO; -METH1TAB40 PO; +PATIENT COMMENT; +POLY17PO18 PO; +POLYOPD OU; +SENN18TA PO; +TIZA1TAB12 PO; +TIZA2CAP PO; +VANI1CRE5 TOP; -VITA250T50 PO; +VITA250T7 PO; +ZOFR4TAB16 PO
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
== END ==
LOC: M PAIN 13:00
PROVIDERS: ATTEND Family Medicine
DX: G89.29 Other chronic pain (principal); M51.17 Intervertebral disc disorders with radiculopathy, lumbosacral region; I10 Essential (primary) hypertension; M06.9 Rheumatoid arthritis, unspecified; G43.909 Migraine, unspecified, not intractable, without status migrainosus; D50.9 Iron deficiency anemia, unspecified; E11.9 Type 2 diabetes mellitus without complications; Z93.0 Tracheostomy status; Z79.82 Long term (current) use of aspirin; Z79.899 Other long term (current) drug therapy; Z79.1 Long term (current) use of non-steroidal anti-inflammatories (NSAID)

== ENCOUNTER → 2020-06-29 | Outpatient (REF) | payer OTHER ==
[~2020-06-29] MED LIST changes: -ASPI-569 PO; +ASPI81TAEC PO; -BISAC5TA PO; -COLA100C5 PO; -FAMO20TA PO; -HYDR-3490 PO; +HYDR25TAB PO; -LISI10TA22 PO; +LISI10TA4 PO; -MELA3TAB30 PO; -METH-1164 PO; +METH1TAB40 PO; -PATIENT COMMENT; +PEG1POW PO; -POLY17PO18 PO; -POLYOPD OU; -TIZA1TAB12 PO; -VANI1CRE5 TOP; +VITA250T50 PO; -VITA250T7 PO
[2020-06-29 14:11] LABS: HEMOGLOBIN A1c 6.8 %
[2020-06-29 14:32] LABS: ALBUMIN 1.7 GM/DL (3.2-5.2); ALT/SGPT 10 U/L (12-78); BILIRUBIN,TOTAL 0.2 MG/DL (0.2-1.0); BLOOD UREA NITROGEN 11 MG/DL (7-18); CALCIUM LEVEL 8.5 MG/DL (8.8-10.2); CARBON DIOXIDE LEVEL 30 MEQ/L (21-32); CHLORIDE LEVEL 97 MEQ/L (98-107); CREATININE FOR GFR 0.57 MG/DL (0.55-1.30); GLOMERULAR FILTRATION RATE > 60.0 (>45); GLUCOSE, FASTING 114 MG/DL (70-100); IRON (FE) 11 UG/DL (50-170); MAGNESIUM LEVEL 1.7 MG/DL (1.8-2.4); PERCENT SATURATION 6.8 % (13.2-45.0); POTASSIUM SERUM 4.2 MEQ/L (3.5-5.1); SODIUM LEVEL 135 MEQ/L (136-145); TOTAL IRON BINDING CAPACITY 161 UG/DL (250-450); TOTAL PROTEIN 5.9 GM/DL (6.4-8.2)
[2020-07-02 11:22] LABS: FERRITIN 232 NG/ML (8-252)
== END ==
LOC: M SHH 12:58
PROVIDERS: ATTEND Nurse Practitioner Family
DX: K59.09 Other constipation (principal); E11.9 Type 2 diabetes mellitus without complications; I10 Essential (primary) hypertension

== ENCOUNTER 2020-07-13 13:04 | Inpatient (IN) | payer MEDICAID, OTHER ==
[~2020-07-13] VITALS: Ht 165.1 cm; Wt 125.6 kg
[~2020-07-13 13:04] MED LIST changes: +ASPI-569 PO; -ASPI81TAEC PO; +HYDR-3490 PO; -HYDR25TAB PO; +LISI10TA22 PO; -LISI10TA4 PO; +METH-1164 PO; -METH1TAB40 PO; -PEG1POW PO; +POLY17PO18 PO; -VITA250T50 PO; +VITA250T7 PO
[2020-07-13] MEDS ORDERED: NS 1,000 ML IV ONE (13:30)
[2020-07-13 13:58] LABS: BASO # 0.2 10^3/uL (0.0-0.2); BASO % 1.1 % (0.0-1.0); EOS # 0.7 10^3/uL (0.0-0.5); EOS % 3.5 % (0.0-3.0); HEMATOCRIT 29.3 % (36.0-47.0); HEMOGLOBIN 9.1 g/dl (12.0-15.5); LYMPH # 2.4 10^3/uL (1.5-5.0); MEAN CORPUSCULAR HEMOGLOBIN 25.2 pg (27.0-33.0); MEAN CORPUSCULAR HGB CONC 31.1 g/dl (32.0-36.5); MEAN CORPUSCULAR VOLUME 81.2 fl (80.0-96.0); MONO # 2.9 10^3/uL (0.0-0.8); MONO % 15.5 % (2.0-8.0); NEUTROPHILS # 11.9 10^3/uL (1.5-8.5); NEUTROPHILS % 64.5 % (36.0-66.0); PLATELET COUNT, AUTOMATED 662 10^3/uL (150-450); RED BLOOD COUNT 3.61 10^6/uL (4.00-5.40); WHITE BLOOD COUNT 18.4 10^3/uL (4.0-10.0)
--- NOTE | 2020-07-13 14:03 | REP ---
INDICATION: sepsis. COMPARISON: Comparison chest x-ray 01 June 2020.. TECHNIQUE: Sitting AP portable chest x-ray. FINDINGS: Patient is rotated somewhat to the right. Extensive fusion hardware is noted in the upper thoracic spine. Tracheostomy tube is again noted in good position. Right hemidiaphragm is elevated unchanged. Pulmonary vasculature is cephalized. No infiltrate is seen. Cardiomegaly is observed. IMPRESSION: Cephalization and cardiomegaly. Extensive T-spine fusion hardware. Tracheostomy tube in good position. No acute infiltrate seen. <Electronically signed by Mario Winslow > 07/13/20 [id number]
[2020-07-13 14:26] LABS: ALBUMIN 1.4 GM/DL (3.2-5.2); ALT/SGPT 12 U/L (12-78); BILIRUBIN,DIRECT 0.3 MG/DL (0.0-0.2); BILIRUBIN,TOTAL 0.5 MG/DL (0.2-1.0); BLOOD UREA NITROGEN 9 MG/DL (7-18); CALCIUM LEVEL 7.8 MG/DL (8.8-10.2); CARBON DIOXIDE LEVEL 34 MEQ/L (21-32); CHLORIDE LEVEL 95 MEQ/L (98-107); CK-MB VALUE MASS < 1.0 NG/ML (<3.6); CPK CREATINE PHOSPHOKINASE 14 U/L (26-192); CREATININE FOR GFR 0.56 MG/DL (0.55-1.30); GLOMERULAR FILTRATION RATE > 60.0 (>45); GLUCOSE, FASTING 108 MG/DL (70-100); MB/CK RELATIVE INDEX 7.14 (< OR =4); NT-PRO BNP 3142 PG/ML (<125); POTASSIUM SERUM 3.6 MEQ/L (3.5-5.1); SODIUM LEVEL 134 MEQ/L (136-145); TOTAL PROTEIN 6.2 GM/DL (6.4-8.2); TROPONIN I 0.07 NG/ML (< 0.10)
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
--- OUTSIDE RECORDS SUMMARY | 2020-07-13 14:43 | CCD ---
Author Author [facility] Organization [facility] Address Unknown Phone Unavailable Care Team Providers Care Microsoft Exchange Administrator Name Role Phone Tavon Reed Unavailable PROBLEMS Type Condition ICD9-CM Code NPE05-XG Code Onset Dates Condition S tatus SNOMED Code Notes Problem Lumbar spondylosis with myelopathy M47.16 Activ e 87172432 Problem Essential (primary) hypertension I10 Active 80528392 Problem Hot flashes due to menopause N95.1 Active 198 427250 Problem Rheumatoid arteritis I00 Active 313175652 Problem Type 2 diabetes mellitus wit hout complication, without long-term current use of insulin E11.9 Active 062206252 Problem Diabetic polyneuropathy associated with type 2 d iabetes mellitus E11.42 Active 27617666 Problem Other chronic pain G89.29 Active 48093262 Problem MSSA (methicillin susceptible Staphylococcus aureus) i nfection 041.11 Active 927179890 Problem Lumbar arthropathy M47.816 Active 332825693 Problem Osteomyelitis of ankle, right, acute 730.07 Act lorena 441087435 Problem Myalgia, other site M79.18 Active 74351742 Problem Sacroiliitis, not elsewhere classified M46.1 A ctive 20885283 Problem Spinal stenosis of lumbar re gion, unspecified whether neurogenic claudication present M48.061 Active 13099629 Problem Stage IV pressure ulcer of sacral region L89.154 Active 141703991 Problem Intervertebral disc disorder with radiculopathy of lumbar region M51.16 Active 69680002 Problem Migraines G43.909 Active 11757915 Problem 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 L97.812 Active 60643522 Problem Low back pain M54.5 Active 028248912 Problem Lumbago M54.5 Active 496367139 Problem Iron deficiency anemia D50.9 Active 60467168 Problem Intervertebral disc disorder with radiculopathy of lumbosacral region M51.17 Active 55342755815651415 Problem Intervertebral disc disorders with radiculopathy , lumbar region M51.16 Active 200632178231883 Problem Spondylosis without myelopathy or radiculopathy, lumbosacral region M47.817 Active 31405722 Problem Spondylosis without myelopathy or radiculopathy, lumbar region M47.816 Active 110445703 ALLERGIES No Known Allergies ENCOUNTERS from 1955 to 2020-06-29 Encounter Location Date Provider Diagnosis [facility] [address] [place] [address] Jun Tavon Reed Stage IV pressure ulcer of sacral region L89.154 and Non-pressure chronic ulcer of other part of right lower leg with fat layer exposed L97.812 IMMUNIZATIONS Vaccine Route Administration Date Status Influenza (6mo & up) Fluzone IM Intramuscular Apr 22, 2016 Ad ministered SOCIAL HISTORY Tobacco Use: Social History Observation Description Date Details (start date - stop date) Never Smoker Sex Assigned At : Social History Observation Description Sex Assigned At Unknown Drug and Alcohol Question Answer Notes Total Score: 0 Interpretation: No problems reported Alcohol Screening: Question Answer Notes Did you have a drink containing alcohol in the past year? No Points 0 Interpretation Negative BMI Care Goal Follow-Up Question Answer Notes Above Normal BMI Follow-Up Dietary management educatio n, guidance, and counseling Tobacco Use: Question Answer Notes Are you a: never smoker REASON FOR REFERRAL No Information VITAL SIGNS Weight 260 lbs Jun, Weight-kg PER PT kg Jun, Height 67.5 in Jun, BMI 40.12 kg/m2 Jun, Heart Rate 64 /min Jun, Respiratory Rate 20 /min Jun, Temperature 96.8 degrees Fahrenheit Jun, Oximetry 91 Jun, Blood pressure systolic 91 mm Hg Jun, Blood pressure diastolic 44 mm Hg Jun, MEDICATIONS Medication SIG (Take, Route, Frequency, Duration) Notes Start Da te End Date Status Colace 100 MG 1 capsule as needed Orally Once a day for 30 day(s) Active Gabapentin 100 MG 1 cap Orally tid N ot-Taking Polyethylene Glycol - as directed No t-Taking Midodrine HCl 5 MG 1 tablet Orally bid Not-Taking Phenazopyridine HCl 200 MG 1 tablet after meals Orally Three times a day for 2 day(s) Not-Taking Glucometer as directed for 30 day(s) Jan, Active Aspirin 325 MG 1 tablet Orally Once a day for 30 day(s) Not-Taking Vitamin B 12 500 MCG one half Orally Once a day Not-Taking Methocarbamol 500 MG 1 tablet Orally TWICE DAILY Active Ipratropium-Albuterol 18-103 MCG/ACT as directed Inhalation Not-Taking Suboxone 4-1 MG 1 film under the tongue and allow to dissolve Sublingual Once a day Active Meloxicam 7.5 MG 1 tablet Orally Once a day for 30 day(s) Active Folic Acid 1 MG 1 tablet Orally Once a day for 30 day(s) Active MiraLax 17 GM/SCOOP as directed Orally Active Aspirin 81 MG 1 tablet Orally Once a day Active Midodrine HCl 5 MG 1 tablet Orally Three times a day for 30 day(s) Not-Taking Tizanidine HCl 2 MG 1 tablet as needed Orally three times daily May, Active Lisinopril 40 MG 1 tablet Orally Once a day for 30 days Not-Taking Bisacodyl 5 MG 1 tablet as needed Orally Once a day for 30 day(s) Not-Taking Buprenorphine HCl-Naloxone HCl 4-1 MG 1 film under the tongue and allow to dissolve Sublingual Once a day N ot-Taking Atenolol 25 mg 1 tablet Orally Once a day Not-Taking Guaifenesin-DM 10-100 MG/5ML 10 ml as needed Orally every 4 hrs Not-Taking Refresh Dry Eye Therapy 1-1 % as directed Ophthalmic Active HydrOXYzine HCl 25 MG 1 tablet as needed Orally every 4 hours as need ed Not-Taking Diclofenac Sodium 100 MG 1 tablet Orally Once a day for 30 day(s) Not-Taking Propylene Glycol 0.6 % as directed Ophthalmic Active Cymbalta 60 MG take one capsule by mouth Orally bid for 30 Not-Taking Blood Glucose Test - as directed In Vitro Daily for 90 day(s) Jan, Active Ferrous Gluconate 324 (38 Fe) MG 1 tablet with water o r juice between meals Orally Once a day for 30 day(s) Active DuoNeb 0.5-2.5 (3) MG/3ML 3 ml as needed Inhalation every 6 hrs Active Melatonin 3 MG 1 tablet at bedtime as needed Orally Once a day for 30 day(s) Active Duloxetine HCl 60 MG 1 capsule Orally Once a day for 30 day(s) Active Nystatin - as directed Active Atorvastatin Calcium 40 MG 1 tablet Orally Once a day for 30 day(s) Active Levothyroxine Sodium 50 MCG 1 tablet in the morning on an empty stomach Orally Once a day for 30 day(s) Active Lancets - as directed Daily for 90 day(s) Jan, Active Cyanocobalamin 250 MCG as directed Orally Once a day Active Gabapentin 600 MG 1 tablet Orally three times daily Active Furosemide 40 MG 1 tablet Orally Once a day for 30 day(s) Active Hydroxychloroquine Sulfate 200 MG as directed Orally Not-Taking Flexeril 10 MG 1 tablet Orally three times a day for 30 day(s) Not-Taking Suboxone 4-1 MG 1 film under the tongue and allow to dissolve Sublingual Once a day Not-Taking Propylene Glycol 0.95 % as directed Ophthalmic Not-Taking Senna - as directed Orally Active Acetaminophen 325 MG 3 tablets Orally three times daily Not-Taking Oxycodone HCl 5 MG 1 tablet as needed Orally fo r pain every 8 hrs MDD3 for 30 day(s) Aug, Not-Taking Oxycodone-Acetaminophen 7.5-325 MG 1 tablet as needed Orally for pain every 8 hrs MDD3 for 30 days Oct, Not-Taking Senna 8.6 MG 2 tablets at bedtime as needed Orally Once a day for 3 0 day(s) Not-Taking Melatonin 3 MG 1 tablet at bedtime as needed Orally Once a day for 30 day(s) Not-Taking Metformin HCl 500 MG 1 tablet with a meal Orally twice daily for 30 day(s) Jan, Not-Taking PROCEDURES from 1955 to 2020-06-29 Procedure Date Ordered Result Body Site Medication: 4% Lidocaine topical cream (Anecream) 5gm 2020-06-21 N/A RESULTS No Results REASON FOR VISIT [...] Notes Treatment Notes Treatm ent Clinical Notes Jun, Stage IV pressure ulcer of sacral region (ICD-10 - L89.154) Discontinue wound VAC therapy Jun, 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 (ICD-10 - L97.812) Jun, Other VASHE [id number] EXP:12/19 PLAN OF TREATMENT Treatment Notes Assessment Notes Clinical Notes Stage IV pressure ulcer of sacral region Discontinue wound VAC therapy Next Appt Details 1 Week Reason: Provider Name:Tavon Reed, 02:15:00 PM, [address] [place], [address], Provider Name:Darrian Odell, 2020-08-15 01:30:00 PM, [address] [place], [address], Insurance Providers Payer Name Payer Address Payer Phone Insured Name Patient Relati onship to Insured Coverage Start Date Coverage End Date [facility] COMMUN[facility] PLAN [facility] [address] [facility] [id number] HANNA GARVIN self
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
--- OUTSIDE RECORDS SUMMARY | 2020-07-13 14:43 | CCD ---
Author Author [facility] Organization [facility] Address Unknown Phone Unavailable Care Team Providers Care Director Of Software Engineering Name Role Phone Darrian Odell Unavailable PROBLEMS Type Condition ICD9-CM Code RCX53-TK Code Onset Dates Condition S tatus SNOMED Code Notes Problem Lumbar spondylosis with myelopathy M47.16 Activ e 63870942 Problem Essential (primary) hypertension I10 Active 60531071 Problem Hot flashes due to menopause N95.1 Active 198 771432 Problem Rheumatoid arteritis I00 Active 943159504 Problem Type 2 diabetes mellitus wit hout complication, without long-term current use of insulin E11.9 Active 057455547 Problem Diabetic polyneuropathy associated with type 2 d iabetes mellitus E11.42 Active 42251237 Problem Other chronic pain G89.29 Active 75831946 Problem MSSA (methicillin susceptible Staphylococcus aureus) i nfection 041.11 Active 256760365 Problem Lumbar arthropathy M47.816 Active 654572262 Problem Osteomyelitis of ankle, right, acute 730.07 Act lorena 807828934 Problem Myalgia, other site M79.18 Active 94816013 Problem Sacroiliitis, not elsewhere classified M46.1 A ctive 49547485 Problem Spinal stenosis of lumbar re gion, unspecified whether neurogenic claudication present M48.061 Active 86644941 Problem Stage IV pressure ulcer of sacral region L89.154 Active 306777732 Problem Intervertebral disc disorder with radiculopathy of lumbar region M51.16 Active 70162851 Problem Migraines G43.909 Active 84008508 Problem 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 L97.812 Active 40001708 Problem Low back pain M54.5 Active 598436027 Problem Lumbago M54.5 Active 997268954 Problem Iron deficiency anemia D50.9 Active 24375934 Problem Intervertebral disc disorder with radiculopathy of lumbosacral region M51.17 Active 70169643098583354 Problem Intervertebral disc disorders with radiculopathy , lumbar region M51.16 Active 301669442207814 Problem Spondylosis without myelopathy or radiculopathy, lumbosacral region M47.817 Active 85059201 Problem Spondylosis without myelopathy or radiculopathy, lumbar region M47.816 Active 066362523 ALLERGIES No Known Allergies ENCOUNTERS from 1955 to 2020-06-24 Encounter Location Date Provider Diagnosis [facility] [address] [place] [address] Jun, Darrian Odell IMMUNIZATIONS Vaccine Route Administration Date Status Influenza [...] daily for 30 day(s) Jan, Not-Taking PROCEDURES No Information RESULTS No Results REASON FOR VISIT SUBOXONE MEDICAL (GENERAL) HISTORY Type Description Date Medical [...] Information ASSESSMENTS No Information PLAN OF TREATMENT Next Appt Details Provider Name:Tavon Reed, 02:15:00 PM, [address] [place], [address], Provider Name:Darrian Odell, 2020-08-15 01:30:00 PM, [address] [place], [address], Insurance Providers Payer Name Payer Address Payer Phone Insured Name Patient Relati onship to Insured Coverage Start Date Coverage End Date [facility] [address] [facility] [id number] HANNA GARVIN self
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
--- OUTSIDE RECORDS SUMMARY | 2020-07-13 14:44 | CCD ---
Author Author [facility] Organization [facility] Address Unknown Phone Unavailable Care Team Providers Care Settlement Agent Name Role Phone Jason Eaton Unavailable PROBLEMS Type Condition ICD9-CM Code TCD29-CL Code Onset Dates Condition S tatus SNOMED Code Notes Problem Essential (primary) hypertension I10 Active 59759397 Problem Iron deficiency anemia D50.9 Active 43080143 Problem Rheumatoid arteritis I00 Active 698323437 Problem Lumbar spondylosis with myelopathy M47.16 Activ e 02437574 Problem Diabetic polyneuropathy associated with type 2 d iabetes mellitus E11.42 Active 24216285 Problem Hot flashes due to menopause N95.1 Active 198 828727 Problem Other chronic pain G89.29 Active 49297991 Problem Osteomyelitis of ankle, right, acute 730.07 Act lorena 657944015 Problem Type 2 diabetes mellitus wit hout complication, without long-term current use of insulin E11.9 Active 873165187 Problem Intervertebral disc disorder with radiculopathy of lumbar region M51.16 Active 90037444 Problem Myalgia, other site M79.18 Active 06527509 Problem Sacroiliitis, not elsewhere classified M46.1 A ctive 18910474 Problem Spondylosis without myelopathy or radiculopathy, lumbar region M47.816 Active 368777084 Problem Lumbar arthropathy M47.816 Active 991676928 Problem Lumbago M54.5 Active 266723023 Problem Stage IV pressure ulcer of sacral region L89.154 Active 227992434 Problem Low back pain M54.5 Active 879707518 Problem MSSA (methicillin susceptible Staphylococcus aureus) i nfection 041.11 Active 221790496 Problem Migraines G43.909 Active 96719365 Problem Spinal stenosis of lumbar re gion, unspecified whether neurogenic claudication present M48.061 Active 01438077 Problem Intervertebral disc disorder with radiculopathy of lumbosacral region M51.17 Active 68026311575206604 Problem Intervertebral disc disorders with radiculopathy , lumbar region M51.16 Active 096902626676758 Problem Spondylosis without myelopathy or radiculopathy, lumbosacral region M47.817 Active 73199975 ALLERGIES No Known Allergies ENCOUNTERS from 1955 to 2020-06-19 Encounter Location Date Provider Diagnosis [facility] [address] [place] [address] Jun Jason Eaton IMMUNIZATIONS Vaccine Route Administration Date Status Influenza [...] Notes Start Da te End Date Status Suboxone 4-1 MG 1 film under the tongue and allow to dissolve Sublingual Once a day Not-Taking Senna 8.6 MG 2 tablets at bedtime as needed Orally Once a day for 3 0 day(s) Active Ferrous Gluconate 324 (38 Fe) MG 1 tablet with water o r juice between meals Orally Once a day for 30 day(s) Active Diclofenac Sodium 100 MG 1 tablet Orally Once a day for 30 day(s) Active Gabapentin 600 MG 1 tablet Orally three times daily Active Atenolol 25 mg 1 tablet Orally Once a day Active Oxycodone-Acetaminophen 7.5-325 MG 1 tablet as needed Orally for pain every 8 hrs MDD3 for 30 days Oct, Not-Taking Midodrine HCl 5 MG 1 tablet Orally bid Active Blood Glucose Test - as directed In Vitro Daily for 90 day(s) Jan, Active HydrOXYzine HCl 25 MG 1 tablet as needed Orally every 4 hours as need ed Active Aspirin 81 MG 1 tablet Orally Once a day Active Aspirin 325 MG 1 tablet Orally Once a day for 30 day(s) Active Vitamin B 12 500 MCG one half Orally Once a day Active Glucometer as directed for 30 day(s) Jan, Active Hydroxychloroquine Sulfate 200 MG as directed Orally Not-Taking Lancets - as directed Daily for 90 day(s) Jan, Active Folic Acid 1 MG 1 tablet Orally Once a day for 30 day(s) Active Midodrine HCl 5 MG 1 tablet Orally Three times a day for 30 day(s) Active Phenazopyridine HCl 200 MG 1 tablet after meals Orally Three times a day for 2 day(s) Not-Taking Oxycodone HCl 5 MG 1 tablet as needed Orally fo r pain every 8 hrs MDD3 for 30 day(s) Aug, Not-Taking Ipratropium-Albuterol 18-103 MCG/ACT as directed Inhalation Active Bisacodyl 5 MG 1 tablet as needed Orally Once a day for 30 day(s) Active Guaifenesin-DM 10-100 MG/5ML 10 ml as needed Orally every 4 hrs Active Propylene Glycol 0.95 % as directed Ophthalmic Active Cymbalta 60 MG take one capsule by mouth Orally bid for 30 Not-Taking Methocarbamol 500 MG as directed Orally four times daily Active Metformin HCl 500 MG 1 tablet with a meal Orally twice daily for 30 day(s) Jan, Not-Taking Polyethylene Glycol - as directed Ac tive Furosemide 40 MG 1 tablet Orally Once a day for 30 day(s) Active Tizanidine HCl 2 MG 1 tablet as needed Orally three times daily May, Active Melatonin 3 MG 1 tablet at bedtime as needed Orally Once a day for 30 day(s) Not-Taking Meloxicam 7.5 MG 1 tablet Orally Once a day for 30 day(s) Active Gabapentin 100 MG 1 cap Orally tid N ot-Taking Lisinopril 40 MG 1 tablet Orally Once a day for 30 days Not-Taking Buprenorphine HCl-Naloxone HCl 4-1 MG 1 film under the tongue and allow to dissolve Sublingual Once a day A ctive Flexeril 10 MG 1 tablet Orally three times a day for 30 day(s) Not-Taking Acetaminophen 325 MG 3 tablets Orally three times daily Active PROCEDURES No Information RESULTS No Results REASON FOR VISIT LEAKING URINE MEDICAL (GENERAL) HISTORY Type Description Date Medical [...] TREATMENT Next Appt Details Provider Name:Tavon Reed, 02:45:00 PM, [address] [place], [address], Provider Name:Darrian Odell, 2020-08-15 01:30:00 PM, [address] [place], [address], Insurance Providers Payer Name Payer Address Payer Phone Insured Name Patient Relati onship to Insured Coverage Start Date Coverage End Date [facility]LY [facility] [address] [facility] [id number] HANNA GARVIN self
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
--- OUTSIDE RECORDS SUMMARY | 2020-07-13 14:44 | CCD | Continuity of Care Document ---
Author Author Nadege CRENSHAW MD Organization Unknown Address [address] [place] [address] [address] [place] [address] Phone [phone] Care Team Providers Care Resource Specialist Teacher Name Role Phone Aries Baumann M.D. AUTM [phone] Nelson Martinez D.O. AUTM [phone] Problems Active Problems Provider Date Other Nonspecified Abnormal Finding Of Lung Field Toshia Kay M.D. Onset: 04/07/2011 Difficulty breathing Toshia Kay M.D. Onset: Rheumatoid arthritis Toshia Kay M.D. Onset: Essential hypertension Toshia Kay M.D. Onset: 04/07/2011 Disorder of lung Toshia Kay M.D. Onset: Needs influenza immunization Toshia Kay M.D. O nset: 04/14/2011 Pulmonary function studies abnormal Toshia Kay M.D. Onset: 04/14/2011 Body mass index 30+ - obesity Toshia Kay M.D. Onset: 09/28/2013 Obesity Toshia Kay M.D. Onset: Social History Type Date Description Comments Sex Unknown ETOH Use Denies alcohol use Tobacco Use Start: Unknown Patient has never smoked Recreational Drug Use Denies Drug Use Allergies, Adverse Reactions, Alerts Description No Known Drug Allergies Medications Active Medications SIG Qnty Indications Ordering Provide r Date Propylene Glycol Liquid 1 drop OU q2h prn for dry eyes Unknown Nystatin Powder apply under breasts prn Unknown Methocarbamol 500mg Tablets Po qid Prn for Muscle spasms Unknown Ipratropium [place]/Albuterol Sulfate 0.5-2.5(3)mg/3ML Solution 1 vial q6 hours prn as needed for SOB and wheezing Unknown Hydroxyzine HCL 25mg Tablets PO qid prn for Anxiety Unknown Guaifenesin 100mg/5ML Liquid 10 m PO q4 h PRn for Cough Unknown Bisacodyl Ec 5mg Tablets DR Po Prn for Constipation Unknown Polyethylene Glycol 3350 17GM/Scoop Powder 17 GM PO daily Unknown Metoclopramide HCL 5mg Tablets 1 tab by mouth bid Unknown Meloxicam 7.5mg Tablets 1 every day 60tabs Unknown Levothyroxine Sodium 50mcg Capsule s 1 every day Unknown Folic Acid 1mg Tablets one tablet by mouth every day after meals Unknown Ferrous Gluconate 324(38Fe) mg Tab lets 1 tab by mouth twice a day Unknown Duloxetine HCL 60mg Caps DR Part 1 every day Unknown Docusate Sodium 100mg Capsules 1 by mouth twice a day Unknown Suboxone 4-1mg Film 2 strips SL daily Unknown Atorvastatin Calcium 40mg Tablets 1 every day Unknown Remicade 100mg Solution Rec infusion every 2 months Unknown Furosemide 40mg Tablets every day Unknown Savella 25mg Tablets twice a day Unknown Relpax 40mg Tablets as needed Unknown Atenolol 25mg Tablets every d ay Unknown Aspirin 81mg Tablets every da y Unknown Acetaminophen/Hydrocodone 5-500mg Tablets every 4 hours as needed Unknown Immunizations CPT Code Status Date Vaccine Reaction Lot # [id number] Given 03/03/2013 Influenza Virus Split 3 Yrs And Above For Intramuscular Use 12434 Given 04/19/2012 Pneumococcal PPSV23 [id number] 26255 Given 03/22/2012 Influenza Virus Split 3 Yrs And Above For Intramuscular Use 82801 Given 04/14/2011 Influenza Virus Split 3 Yrs And Above For Intramuscular Use 20666 Given 12/02/2010 [place] [address] Given Unknown Pneumococcal PPSV23 07184 Given Unknown Influenza Vaccine Vital Signs Date Vital Result Comment 06/21/2020 9:27am BP Systolic 104 mmHg BP Diastolic 64 mmHg Height 68 inches 5'8" Weight 260.00 lb Stated BMI (Body Mass Index) 39.5 kg/m2 [place] Body Weight 140 lb Weight 117.936 kg BSA (Body Surface Area) 2.28 m2 09/28/2013 10:43am BP Systolic 138 mmHg BP Diastolic 78 mmHg Heart Rate 74 /min O2 % BldC Oximetry 96 % Height 68 inches 5'8" Weight 256.00 lb BMI (Body Mass Index) 38.9 kg/m2 [place] Body Weight 140 lb Weight 116.122 kg BSA (Body Surface Area) 2.27 m2 Results Description No Information Available Procedures Date Code Description Status 05/17/2020 66602 Laparoscopy Surgical Colostomy S kin Level Cecostomy Completed 05/17/2020 96719 Debridement Muscle/F ascia,Epidermis/Dermis/Tissue,Addtl 20 SQ CM Completed 05/17/2020 23850 Debridement Skin, Subcutaneous T issue & Muscle Completed Medical Devices Description No Information Available Encounters Description No Information Available Assessments Date Code Description Provider 05/17/2020 L89.154 Pressure ulcer of sacral region, stage 4 Bg Crenshaw MD Plan of Treatment Future Appointment(s):* 07/24/2020 10:20 am - Bg Crenshaw MD at [facility] 09/28/2013 - Toshia Kay M.D.* 793.19 Other Nonspec Abnormal Finding of Lung Field * 794.2 Pulmonary Study Abnormal * 714.0 Rheumatoid Arthritis* Comments:* 1. Her CT scan was reviewed, as well as the report, and questions were answered. 2. I explained to Nadege and her that we have known that the left sided pulmonary nodules are benign and need no further follow up. With regard to the right lower lobe triangular shaped lesion, which was the reason for the CT scan, this is now less dense, smaller and consistent with fibroatelectasis. This is also a benign finding and no further follow up is needed. 3. Nadege has a previous CD of her imaging studies (they did not give her a CD of the most recent study). I recommended that she place this with her medical records so that, if she had a CT scan in the future for any reason, this workup would not be repeated for the left sided nodules. * Follow up:* 1. Follow up on an as needed basis. Functional Status Description No Information Available Mental Status Description No Information Available Referrals Description No Information Available
--- OUTSIDE RECORDS SUMMARY | 2020-07-13 15:04 | CCD ---
Author Author [facility] Address Unknown Phone Unavailable Care Team Providers Care Cherry Cutter Name Role Phone Andreea Meredith MD Unavailable Unavailable Andreea Meredith MD Unavailable Unavailable Andreea Meredith MD Unavailable Unavailable Andreea Meredith MD Unavailable Unavailable Andreea Meredith MD Unavailable Unavailable Andreea Meredith MD Unavailable Unavailable Andreea Meredith MD Unavailable Unavailable Andreea Meredith MD Unavailable Unavailable Andreea Meredith MD Unavailable Unavailable Andreea Meredith MD Unavailable Unavailable Andreea Meredith MD Unavailable Unavailable Andreea Meredith MD Unavailable Unavailable Andreea Meredith MD Unavailable Unavailable Andreea Meredith MD Unavailable Unavailable Andreea Meredith MD Unavailable Unavailable Andreea Meredith MD Unavailable Unavailable Andreea Meredith MD Unavailable Unavailable Andreea Meredith MD Unavailable Unavailable Andreea Meredith MD Unavailable Unavailable Andreea Meredith MD Unavailable Unavailable Andreea Meredith MD Unavailable Unavailable Andreea Meredith MD Unavailable Unavailable Andreea Meredith MD Unavailable Unavailable Andreea Meredith MD Unavailable Unavailable Andreea Meredith MD Unavailable Unavailable Andreea Meredith MD Unavailable Unavailable Andreea Meredith MD Unavailable Unavailable Andreea Meredith MD Unavailable Unavailable Andreea Meredith MD Unavailable Unavailable Andreea Meredith MD Unavailable Unavailable Andreea Meredith MD Unavailable Unavailable Andreea Meredith MD Unavailable Unavailable Andreea Meredith MD Unavailable Unavailable Andreea Meredith MD Unavailable Unavailable Andreea Meredith MD Unavailable Unavailable Andreea Meredith MD Unavailable Unavailable Andreea Meredith MD Unavailable Unavailable Andreea Meredith MD Unavailable Unavailable Andreea Meredith MD Unavailable Unavailable Andreea Meredith MD Unavailable Unavailable Andreea Meredith MD Unavailable Unavailable Andreea Meredith MD Unavailable Unavailable Andreea Meredith MD Unavailable Unavailable Andreea Meredith MD Unavailable Unavailable Andreea Meredith MD Unavailable Unavailable Andreea Meredith MD Unavailable Unavailable Andreea Meredith MD Unavailable Unavailable Andreea Meredith MD Unavailable Unavailable Andreea Meredith MD Unavailable Unavailable Andreea Meredith MD Unavailable Unavailable Andreea Meredith MD Unavailable Unavailable Andreea Meredith MD Unavailable Unavailable Andreea Meredith MD Unavailable Unavailable Andreea Meredith MD Unavailable Unavailable Andreea Meredith MD Unavailable Unavailable Andreea Meredith MD Unavailable Unavailable Andreea Meredith MD Unavailable Unavailable Andreea Meredith MD Unavailable Unavailable Andreea Meredith MD Unavailable Unavailable Andreea Meredith MD Unavailable Unavailable Andreea Meredith MD Unavailable Unavailable Andreea Meredith MD Unavailable Unavailable Andreea Meredith MD Unavailable Unavailable Andreea Meredith MD Unavailable Unavailable Andreea Meredith MD Unavailable Unavailable Andreea Meredith MD Unavailable Unavailable Andreea Meredith MD Unavailable Unavailable Andreea Meredith MD Unavailable Unavailable Andreea Meredith MD Unavailable Unavailable Andreea Meredith MD Unavailable Unavailable Andreea Meredith MD Unavailable Unavailable Nikki BHARDWAJ MD Unavailable Unavailable Nikki BHARDWAJ MD Unavailable Unavailable Nikki BHARDWAJ MD Unavailable Unavailable Nikki BHARDWAJ MD Unavailable Unavailable Nikki BHARDWAJ MD Unavailable Unavailable PEPE, P MOON Unavailable Unavailable PEPE, P MOON MD Unavailable Unavailable PEPE, P MOON MD Unavailable Unavailable PEPE, P MOON MD Unavailable Unavailable PEPE, P MOON MD Unavailable Unavailable PEPE, P MOON MD Unavailable Unavailable PEPE, P MOON MD Unavailable Unavailable PEPE, P MOON MD Unavailable Unavailable PEPE, P MOON MD Unavailable Unavailable PEPE, P MOON MD Unavailable Unavailable PEPE, P MOON MD Unavailable Unavailable PEPE, P MOON MD Unavailable Unavailable PEPE, P MOON MD Unavailable Unavailable PEPE, P MOON MD Unavailable Unavailable PEPE, P MOON MD Unavailable Unavailable PEPE, P MOON MD Unavailable Unavailable PEPE, P MOON MD Unavailable Unavailable PEPE, P MOON MD Unavailable Unavailable PEPE, P MOON MD Unavailable Unavailable PEPE, P MOON MD Unavailable Unavailable PEPE, P MOON MD Unavailable Unavailable PEPE, P MOON MD Unavailable Unavailable PEPE, P MOON MD Unavailable Unavailable PEPE, P MOON MD Unavailable Unavailable PEPE, P MOON MD Unavailable Unavailable PEPE, P MOON MD Unavailable Unavailable PEPE, P MOON MD Unavailable Unavailable PEPE, P MOON MD Unavailable Unavailable PEPE, P MOON MD Unavailable Unavailable PEPE, P MOON MD Unavailable Unavailable PEPE, P MOON MD Unavailable Unavailable PEPE, P MOON MD Unavailable Unavailable PEPE, P MOON MD Unavailable Unavailable PEPE, P MOON MD Unavailable Unavailable PEPE, P MOON MD Unavailable Unavailable PEPE, P MOON MD Unavailable Unavailable PEPE, P MOON MD Unavailable Unavailable PEPE, P MOON MD Unavailable Unavailable PEPE, P MOON MD Unavailable Unavailable PEPE, P MOON MD Unavailable Unavailable PEPE, P MOON MD Unavailable Unavailable PEPE, P MOON MD Unavailable Unavailable PEPE, P MOON MD Unavailable Unavailable PEPE, P MOON MD Unavailable Unavailable PEPE, P MOON MD Unavailable Unavailable PEPE, P MOON MD Unavailable Unavailable PEPE, P MOON MD Unavailable Unavailable PEPE, P MOON MD Unavailable Unavailable PEPE, P MOON MD Unavailable Unavailable PEPE, P MOON MD Unavailable Unavailable PEPE, P MOON MD Unavailable Unavailable PEPE, P MOON MD Unavailable Unavailable PEPE, P MOON MD Unavailable Unavailable PEPE, P MOON MD Unavailable Unavailable PEPE, P MOON MD Unavailable Unavailable PEPE, P MOON MD Unavailable Unavailable PEPE, P MOON MD Unavailable Unavailable PEPE, P MOON MD Unavailable Unavailable PEPE, P MOON MD Unavailable Unavailable PEPE, P MOON MD Unavailable Unavailable PEPE, P MOON MD Unavailable Unavailable PEPE, P MOON MD Unavailable Unavailable PEPE, P MOON MD Unavailable Unavailable PEPE, P MOON MD Unavailable Unavailable PEPE, P MOON MD Unavailable Unavailable PEPE, P MOON MD Unavailable Unavailable PEPE, P MOON MD Unavailable Unavailable PEPE, P MOON MD Unavailable Unavailable PEPE, P MOON MD Unavailable Unavailable PEPE, P MOON MD Unavailable Unavailable PEPE, P MOON MD Unavailable Unavailable PEPE, P MOON MD Unavailable Unavailable PEPE, P MOON MD Unavailable Unavailable PEPE, P MOON MD Unavailable Unavailable PEPE, P MOON MD Unavailable Unavailable PEPE, P MOON MD Unavailable Unavailable PEPE, P MOON MD Unavailable Unavailable PEPE, P MOON MD Unavailable Unavailable PEPE, P MOON MD Unavailable Unavailable PEPE, P MOON MD Unavailable Unavailable PEPE, P MOON MD Unavailable Unavailable PEPE, P MOON MD Unavailable Unavailable PEPE, P MOON MD Unavailable Unavailable PEPE, P MOON MD Unavailable Unavailable PEPE, P MOON MD Unavailable Unavailable PEPE, P MOON MD Unavailable Unavailable PEPE, P MOON MD Unavailable Unavailable PEPE, P MOON MD Unavailable Unavailable PEPE, P MOON MD Unavailable Unavailable PEPE, P MOON MD Unavailable Unavailable PEPE, P MOON MD Unavailable Unavailable PEPE, P MOON MD Unavailable Unavailable PEPE, P MOON MD Unavailable Unavailable PEPE, P MOON MD Unavailable Unavailable Chuck HORTON MD Unavailable Unavailable Chuck HORTON MD Unavailable Unavailable Chuck HORTON MD Unavailable Unavailable Chuck HORTON MD Unavailable Unavailable Chuck HORTON MD Unavailable Unavailable Chuck HORTON MD Unavailable Unavailable Chuck HORTON MD Unavailable Unavailable Chuck HORTON MD Unavailable Unavailable Chuck HORTON MD Unavailable Unavailable Chuck HORTON MD Unavailable Unavailable Chuck HORTON MD Unavailable Unavailable Chuck HORTON MD Unavailable Unavailable Chuck HORTON MD Unavailable Unavailable Chuck HORTON MD Unavailable Unavailable Chuck HORTON MD Unavailable Unavailable Chuck HORTON MD Unavailable Unavailable Chuck HORTON MD Unavailable Unavailable Chuck HORTON MD Unavailable Unavailable Chuck HORTON MD Unavailable Unavailable Chuck HORTON MD Unavailable Unavailable Nikki RUBIO MD Unavailable Unavailable Nikki RUBIO MD Unavailable Unavailable Nikki RUBIO MD Unavailable Unavailable Nikki RUBIO MD Unavailable Unavailable Nikki RUBIO MD Unavailable Unavailable Nikki RUBIO MD Unavailable Unavailable Nikki RUBIO MD Unavailable Unavailable Nikki RUBIO MD Unavailable Unavailable Nikki RUBIO MD Unavailable Unavailable Nikki RUBIO MD Unavailable Unavailable Nikki RUBIO MD Unavailable Unavailable Nikki RUBIO MD Unavailable Unavailable Nikki RUBIO MD Unavailable Unavailable Nikki RUBIO MD Unavailable Unavailable Nikki RUBIO MD Unavailable Unavailable RAMIRO, Nikki SILVEIRA MD Unavailable Unavailable RAMIRO, Nikki SILVEIRA MD Unavailable Unavailable RAMIRO, Nikki SILVEIRA MD Unavailable Unavailable RAMIRO, L RAOUL SOLORIO Unavailable Unavailable RAMIRO, L RAOUL SOLORIO Unavailable Unavailable RAMIRO, Nikki SILVEIRA MD Unavailable Unavailable RAMIRO, Nikki SILVEIRA MD Unavailable Unavailable RAMIRO, Nikki SILVEIRA MD Unavailable Unavailable OG, JAQUI MAXIMINO PA Unavailable Unavailable OG, JAQUI MAXIMINO PA Unavailable Unavailable OG, JAQUI MAXIMINO PA Unavailable Unavailable OG, JAQUI MAXIMINO PA Unavailable Unavailable OG, JAQUI MAXIMINO PA Unavailable Unavailable OG, JAQUI MAXIMINO PA Unavailable Unavailable OG, JAQUI MAXIMINO PA Unavailable Unavailable OG, JAQUI MAXIMINO PA Unavailable Unavailable OG, JAQUI MAXIMINO PA Unavailable Unavailable OG, JAQUI MAXIMINO PA Unavailable Unavailable OG, JAQUI MAXIMINO PA Unavailable Unavailable OG, JAQUI MAXIMINO PA Unavailable Unavailable OG, JAQUI MAXIMINO PA Unavailable Unavailable OG, JAQUI MAXIMINO PA Unavailable Unavailable OG, JAQUI MAXIMINO PA Unavailable Unavailable OG, JAQUI MAXIMINO PA Unavailable Unavailable OG, JAQUI MAXIMINO PA Unavailable Unavailable OG, JAQUI MAXIMINO PA Unavailable Unavailable OG, JAQUI MAXIMINO PA Unavailable Unavailable OG, JAQUI MAXIMINO PA Unavailable Unavailable OG, JAQUI MAXIMINO PA Unavailable Unavailable NOT, SPECIFIED Unavailable Unavailable [place], L Suha SATELLITE TV INSTALLER Unavailable Unavailable Ally, L Suha SATELLITE TV INSTALLER Unavailable Unavailable Ally, L Suha SATELLITE TV INSTALLER Unavailable Unavailable [place], L Suha SATELLITE TV INSTALLER Unavailable Unavailable Ally, L Suha SATELLITE TV INSTALLER Unavailable Unavailable Ally, L Suha SATELLITE TV INSTALLER Unavailable Unavailable Ally, L Suha SATELLITE TV INSTALLER Unavailable Unavailable [place], L Suha SATELLITE TV INSTALLER Unavailable Unavailable [place], L Suha SATELLITE TV INSTALLER Unavailable Unavailable [place], L Suha SATELLITE TV INSTALLER Unavailable Unavailable Ally, L Suha SATELLITE TV INSTALLER Unavailable Unavailable Ally, L Suha SATELLITE TV INSTALLER Unavailable Unavailable Ally, L Suha SATELLITE TV INSTALLER Unavailable Unavailable [place], L Suha SATELLITE TV INSTALLER Unavailable Unavailable Ally, L Suha SATELLITE TV INSTALLER Unavailable Unavailable Ally, L Suha SATELLITE TV INSTALLER Unavailable Unavailable Ally, L Suha SATELLITE TV INSTALLER Unavailable Unavailable Ally, L Suha SATELLITE TV INSTALLER Unavailable Unavailable [place], L Suha SATELLITE TV INSTALLER Unavailable Unavailable Ally, L Suha SATELLITE TV INSTALLER Unavailable Unavailable [place], L Suha SATELLITE TV INSTALLER Unavailable Unavailable Ally, L Suha SATELLITE TV INSTALLER Unavailable Unavailable Ally, L Suha SATELLITE TV INSTALLER Unavailable Unavailable Ally, L Suha SATELLITE TV INSTALLER Unavailable Unavailable [place], L Suha SATELLITE TV INSTALLER Unavailable Unavailable [place], L Suha SATELLITE TV INSTALLER Unavailable Unavailable Ally, L Suha SATELLITE TV INSTALLER Unavailable Unavailable [place], L Suha SATELLITE TV INSTALLER Unavailable Unavailable Ally, L Suha SATELLITE TV INSTALLER Unavailable Unavailable Ally, L Suha SATELLITE TV INSTALLER Unavailable Unavailable Ally, L Suha SATELLITE TV INSTALLER Unavailable Unavailable [place], L Suha SATELLITE TV INSTALLER Unavailable Unavailable RAMOS SR, ALEIDA CHADWICK MD Unavailable Unavailable RAMOS SR, ALEIDA CHADWICK MD Unavailable Unavailable RAMOS SR, ALEIDA CHADWICK MD Unavailable Unavailable RAMOS SR, ALEIDA CHADWICK MD Unavailable Unavailable RAMOS SR, ALEIDA CHADWICK MD Unavailable Unavailable RAMOS SR, ALEIDA CHADWICK MD Unavailable Unavailable RAMOS SR, ALEIDA CHADWICK MD Unavailable Unavailable RAMOS SR, ALEIDA CHADWICK MD Unavailable Unavailable RAMOS SR, ALEIDA CHADWICK MD Unavailable Unavailable RAMOS SR, ALEIDA CHADWICK MD Unavailable Unavailable RAMOS SR, ALEIDA CHADWICK MD Unavailable Unavailable RAMOS SR, ALEIDA CHADWICK MD Unavailable Unavailable RAMOS SR, ALEIDA CHADWICK MD Unavailable Unavailable RAMOS SR, ALEIDA CHADWICK MD Unavailable Unavailable RAMOS SR, ALEIDA CHADWICK MD Unavailable Unavailable RAMOS SR, ALEIDA CHADWICK MD Unavailable Unavailable RAMOS SR, ALEIDA CHADWICK MD Unavailable Unavailable RAMOS SR, ALEIDA CHADWICK MD Unavailable Unavailable RAMOS SR, ALEIDA CHADWICK MD Unavailable Unavailable RAMOS SR, ALEIDA CHADWICK MD Unavailable Unavailable RAMOS SR, ALEIDA CHADWICK MD Unavailable Unavailable RAMOS SR, ALEIDA CHADWICK MD Unavailable Unavailable RAMOS SR, ALEIDA CHADWICK MD Unavailable Unavailable RAMOS SR, ALEIDA CHADWICK MD Unavailable Unavailable RAMOS SR, ALEIDA CHADWICK MD Unavailable Unavailable RAMOS SR, ALEIDA CHADWICK MD Unavailable Unavailable RAMOS SR, ALEIDA CHADWICK MD Unavailable Unavailable RAMOS SR, ALEIDA CHADWICK MD Unavailable Unavailable RAMOS SR, ALEIDA CHADWICK MD Unavailable Unavailable RAMOS SR, ALEIDA CHADWICK MD Unavailable Unavailable RAMOS SR, ALEIDA CHADWICK MD Unavailable Unavailable RAMOS SR, ALEIDA CHADWICK MD Unavailable Unavailable RAMOS SR, ALEIDA CHADWICK MD Unavailable Unavailable RAMOS SR, ALEIDA CHADWICK MD Unavailable Unavailable RAMOS SR, ALEIDA CHADWICK MD Unavailable Unavailable RAMOS SR, ALEIDA CHADWICK MD Unavailable Unavailable RAMOS SR, ALEIDA CHADWICK MD Unavailable Unavailable RAMOS SR, ALEIDA CHADWICK MD Unavailable Unavailable RAMOS SR, ALEIDA CHADWICK MD Unavailable Unavailable RAMOS SR, ALEIDA CHADWICK MD Unavailable Unavailable RAMOS SR, ALEIDA CHADWICK MD Unavailable Unavailable RAMOS SR, ALEIDA CHADWICK MD Unavailable Unavailable RAMOS SR, ALEIDA CHADWICK MD Unavailable Unavailable RAMOS SR, ALEIDA CHADWICK MD Unavailable Unavailable RAMOS SR, ALEIDA CHADWICK MD Unavailable Unavailable RAMOS SR, ALEIDA CHADWICK MD Unavailable Unavailable RAMOS SR, ALEIDA CHADWICK MD Unavailable Unavailable RAMOS SR, ALEIDA CHADWICK MD Unavailable Unavailable RAMOS SR, ALEIDA CHADWICK MD Unavailable Unavailable RAMOS SR, ALEIDA CHADWICK MD Unavailable Unavailable RAMOS SR, ALEIDA CHADWICK MD Unavailable Unavailable RAMOS SR, ALEIDA CHADWICK MD Unavailable Unavailable RAMOS SR, ALEIDA CHADWICK MD Unavailable Unavailable RAMOS SR, ALEIDA CHADWICK MD Unavailable Unavailable MARCELINO, SANNA ROBBY OPERATIONS OFFICER AFLOAT-C, MSN Unavailable Unavailab le MARCELINO, SANNA ROBBY OPERATIONS OFFICER AFLOAT-C, MSN Unavailable Unavailab le MARCELINO, SANNA ROBBY OPERATIONS OFFICER AFLOAT-C, MSN Unavailable Unavailab le MARCELINO, SANNA ROBBY OPERATIONS OFFICER AFLOAT-C, MSN Unavailable Unavailab le MARCELINO, SANNA ROBBY OPERATIONS OFFICER AFLOAT-C, MSN Unavailable Unavailab le MARCELINO, SANNA ROBBY OPERATIONS OFFICER AFLOAT-C, MSN Unavailable Unavailab le MARCELINO, SANNA ROBBY OPERATIONS OFFICER AFLOAT-C, MSN Unavailable Unavailab le MARCELINO, SANNA ROBBY OPERATIONS OFFICER AFLOAT-C, MSN Unavailable Unavailab le MARCELINO, SANNA ROBBY OPERATIONS OFFICER AFLOAT-C, MSN Unavailable Unavailab le MARCELINO, SANNA ROBBY OPERATIONS OFFICER AFLOAT-C, MSN Unavailable Unavailab le MARCELINO, SANNA ROBBY OPERATIONS OFFICER AFLOAT-C, MSN Unavailable Unavailab le MARCELINO, SANNA ROBBY OPERATIONS OFFICER AFLOAT-C, MSN Unavailable Unavailab le MARCELINO, SANNA ROBBY OPERATIONS OFFICER AFLOAT-C, MSN Unavailable Unavailab le MARCELINO, SANNA ROBBY OPERATIONS OFFICER AFLOAT-C, MSN Unavailable Unavailab le MARCELINO, SANNA ROBBY OPERATIONS OFFICER AFLOAT-C, MSN Unavailable Unavailab le MARCELINO, SANNA ROBBY OPERATIONS OFFICER AFLOAT-C, MSN Unavailable Unavailab le MARCELINO, SANNA ROBBY OPERATIONS OFFICER AFLOAT-C, MSN Unavailable Unavailab le MARCELINO, SANNA ROBBY OPERATIONS OFFICER AFLOAT-C, MSN Unavailable Unavailab le MARCELINO, SANNA ROBBY OPERATIONS OFFICER AFLOAT-C, MSN Unavailable Unavailab le MARCELINO, SANNA ROBBY OPERATIONS OFFICER AFLOAT-C, MSN Unavailable Unavailab le MARCELINO, SANNA ROBBY OPERATIONS OFFICER AFLOAT-C, MSN Unavailable Unavailab le MARCELINO, SANNA ROBBY OPERATIONS OFFICER AFLOAT-C, MSN Unavailable Unavailab le MARCELINO, SANNA ROBBY OPERATIONS OFFICER AFLOAT-C, MSN Unavailable Unavailab le MARCELINO, SANNA ROBBY OPERATIONS OFFICER AFLOAT-C, MSN Unavailable Unavailab le MARCELINO, SANNA ROBBY OPERATIONS OFFICER AFLOAT-C, MSN Unavailable Unavailab le MARCELINO, SANNA ROBBY OPERATIONS OFFICER AFLOAT-C, MSN Unavailable Unavailab le MARCELINO, SANNA ROBBY OPERATIONS OFFICER AFLOAT-C, MSN Unavailable Unavailab le MARCELINO, SANNA ROBBY OPERATIONS OFFICER AFLOAT-C, MSN Unavailable Unavailab le MARCELINO, SANNA ROBBY OPERATIONS OFFICER AFLOAT-C, MSN Unavailable Unavailab le MARCELINO, SANNA ROBBY OPERATIONS OFFICER AFLOAT-C, MSN Unavailable Unavailab le MARCELINO, SANNA ROBBY OPERATIONS OFFICER AFLOAT-C, MSN Unavailable Unavailab le MARCELINO, SANNA ROBBY OPERATIONS OFFICER AFLOAT-C, MSN Unavailable Unavailab le MARCELINO, SANNA ROBBY OPERATIONS OFFICER AFLOAT-C, MSN Unavailable Unavailab le MARCELINO, SANNA ROBBY OPERATIONS OFFICER AFLOAT-C, MSN Unavailable Unavailab le MARCELINO, SANNA ROBBY OPERATIONS OFFICER AFLOAT-C, MSN Unavailable Unavailab le MARCELINO, SANNA ROBBY OPERATIONS OFFICER AFLOAT-C, MSN Unavailable Unavailab le MARCELINO, SANNA ROBBY OPERATIONS OFFICER AFLOAT-C, MSN Unavailable Unavailab le MARCELINO, SANNA ROBBY OPERATIONS OFFICER AFLOAT-C, MSN Unavailable Unavailab le MARCELINO, SANNA ROBBY OPERATIONS OFFICER AFLOAT-C, MSN Unavailable Unavailab le MARCELINO, SANNA ROBBY OPERATIONS OFFICER AFLOAT-C, MSN Unavailable Unavailab le MARCELINO, SANNA ROBBY OPERATIONS OFFICER AFLOAT-C, MSN Unavailable Unavailab le MARCELINO, SANNA ROBBY OPERATIONS OFFICER AFLOAT-C, MSN Unavailable Unavailab le MARCELINO, SANNA ROBBY OPERATIONS OFFICER AFLOAT-C, MSN Unavailable Unavailab Zaira Hobson Unavailable [phone] Zaira HOGAN Unavailable [phone] Zaira HOGAN Unavailable [phone] Zaira HOGAN Unavailable [phone] Zaira HOGAN Unavailable [phone] SYMENOW, G CHRISTOPHER PA Unavailable Unavailable SYMENOW, G CHRISTOPHER PA Unavailable Unavailable SYMENOW, G CHRISTOPHER PA Unavailable Unavailable SYMENOW, G CHRISTOPHER PA Unavailable Unavailable SYMENOW, G CHRISTOPHER PA Unavailable Unavailable SYMENOW, G CHRISTOPHER PA Unavailable Unavailable SYMENOW, G CHRISTOPHER PA Unavailable Unavailable SYMENOW, G CHRISTOPHER PA Unavailable Unavailable SYMENOW, G CHRISTOPHER PA Unavailable Unavailable SYMENOW, G CHRISTOPHER PA Unavailable Unavailable SYMENOW, G CHRISTOPHER PA Unavailable Unavailable SYMENOW, G CHRISTOPHER PA Unavailable Unavailable SYMENOW, G CHRISTOPHER PA Unavailable Unavailable SYMENOW, G CHRISTOPHER PA Unavailable Unavailable SYMENOW, G CHRISTOPHER PA Unavailable Unavailable SYMENOW, G CHRISTOPHER PA Unavailable Unavailable SYMENOW, G CHRISTOPHER PA Unavailable Unavailable LATISHA, L MELANIE PA Unavailable Unavailable LATISHA, L MELANIE PA Unavailable Unavailable LATISHA, L MELANIE PA Unavailable Unavailable LATISHA, L MELANIE PA Unavailable Unavailable LATISHA, L MELANIE PA Unavailable Unavailable LATISHA, L MELANIE PA Unavailable Unavailable LATISHA, L MELANIE PA Unavailable Unavailable LATISHA, L MELANIE PA Unavailable Unavailable LATISHA, L MELANIE PA Unavailable Unavailable LATISHA, L MELANIE PA Unavailable Unavailable LATISHA, L MELANIE PA Unavailable Unavailable LATISHA, L MELANIE PA Unavailable Unavailable LATISHA, L MELANIE PA Unavailable Unavailable LATISHA, L MELANIE PA Unavailable Unavailable LATISHA, L MELANIE PA Unavailable Unavailable LATISHA, L MELANIE PA Unavailable Unavailable LATISHA, L MELANIE PA Unavailable Unavailable LATISHA, L MELANIE PA Unavailable Unavailable LATISHA, L MELANIE PA Unavailable Unavailable Gandara, W Frandy RPA-C Unavailable Unavailable Gandara, W Frandy RPA-C Unavailable Unavailable Gandara, W Frandy RPA-C Unavailable Unavailable Gandara, W Frandy RPA-C Unavailable Unavailable Gandara, W Frandy RPA-C Unavailable Unavailable Gandara, W Frandy RPA-C Unavailable Unavailable Gandara, W Frandy RPA-C Unavailable Unavailable Gandara, W Frandy RPA-C Unavailable Unavailable Gandara, W Frandy RPA-C Unavailable Unavailable Gandara, W Frandy RPA-C Unavailable Unavailable Gandara, W Frandy RPA-C Unavailable Unavailable Gandara, W Frandy RPA-C Unavailable Unavailable Gandara, W Frandy RPA-C Unavailable Unavailable Gandara, W Frandy RPA-C Unavailable Unavailable Gandara, W Frandy RPA-C Unavailable Unavailable Gandara, W Frandy RPA-C Unavailable Unavailable JOSE SIU Unavailable Unavailable Davin Folyd OPERATIONS OFFICER AFLOAT Unavailable Unavailable Everett, A Jaye OPERATIONS OFFICER AFLOAT Unavailable Unavailable Everett, A Jaye OPERATIONS OFFICER AFLOAT Unavailable Unavailable Everett, A Jaye OPERATIONS OFFICER AFLOAT Unavailable Unavailable Everett, A Jaye OPERATIONS OFFICER AFLOAT Unavailable Unavailable Everett, A Jaye OPERATIONS OFFICER AFLOAT Unavailable Unavailable Everett, A Jaye OPERATIONS OFFICER AFLOAT Unavailable Unavailable Everett, A Jaye OPERATIONS OFFICER AFLOAT Unavailable Unavailable Everett, A Jaye OPERATIONS OFFICER AFLOAT Unavailable Unavailable Everett, A Jaye OPERATIONS OFFICER AFLOAT Unavailable Unavailable Everett, A Jaye OPERATIONS OFFICER AFLOAT Unavailable Unavailable Everett, A Jaye OPERATIONS OFFICER AFLOAT Unavailable Unavailable Everett, A Jaye OPERATIONS OFFICER AFLOAT Unavailable Unavailable Everett, A Jaye OPERATIONS OFFICER AFLOAT Unavailable Unavailable Everett, A Jaye OPERATIONS OFFICER AFLOAT Unavailable Unavailable Everett, A Jaye OPERATIONS OFFICER AFLOAT Unavailable Unavailable Everett, A Jaye OPERATIONS OFFICER AFLOAT Unavailable Unavailable Everett, A Jaye OPERATIONS OFFICER AFLOAT Unavailable Unavailable Everett, A Jaye OPERATIONS OFFICER AFLOAT Unavailable Unavailable Everett, A Jaye OPERATIONS OFFICER AFLOAT Unavailable Unavailable Everett, A Jaye OPERATIONS OFFICER AFLOAT Unavailable Unavailable Everett, A Jaye OPERATIONS OFFICER AFLOAT Unavailable Unavailable Everett, A Jaye OPERATIONS OFFICER AFLOAT Unavailable Unavailable Everett, A Jaye OPERATIONS OFFICER AFLOAT Unavailable Unavailable Everett, A Jaye OPERATIONS OFFICER AFLOAT Unavailable Unavailable Everett, A Jaye OPERATIONS OFFICER AFLOAT Unavailable Unavailable Everett, A Jaye OPERATIONS OFFICER AFLOAT Unavailable Unavailable Everett, A Jaye OPERATIONS OFFICER AFLOAT Unavailable Unavailable Everett, A Jaye OPERATIONS OFFICER AFLOAT Unavailable Unavailable Everett, A Jaye OPERATIONS OFFICER AFLOAT Unavailable Unavailable Everett, A Jaye OPERATIONS OFFICER AFLOAT Unavailable Unavailable Everett, A Jaye OPERATIONS OFFICER AFLOAT Unavailable Unavailable Everett, A Jaye OPERATIONS OFFICER AFLOAT Unavailable Unavailable Everett, A Jaye OPERATIONS OFFICER AFLOAT Unavailable Unavailable Everett, A Jaye OPERATIONS OFFICER AFLOAT Unavailable Unavailable Everett, A Jaye OPERATIONS OFFICER AFLOAT Unavailable Unavailable Everett, A Jaye OPERATIONS OFFICER AFLOAT Unavailable Unavailable Everett, A Jaye OPERATIONS OFFICER AFLOAT Unavailable Unavailable Everett, A Jaye OPERATIONS OFFICER AFLOAT Unavailable Unavailable Everett, A Jaye OPERATIONS OFFICER AFLOAT Unavailable Unavailable Everett, A Jaye OPERATIONS OFFICER AFLOAT Unavailable Unavailable Everett, A Jaye OPERATIONS OFFICER AFLOAT Unavailable Unavailable Everett, A Jaye OPERATIONS OFFICER AFLOAT Unavailable Unavailable Everett, A Jaye OPERATIONS OFFICER AFLOAT Unavailable Unavailable DAVE CHEEK Unavailable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 Kit - eCW1 ([facility]) Blood Pressure Kit - Blood Pressure Kit - 05/08/2020 12:00:00 AM EST suspended Blood Pressure Kit - eCW1 ([facility]) Blood Pressure Kit - Blood Pressure Kit - 05/08/2020 12:00:00 AM EST suspended Blood Pressure Kit - eCW1 ([facility]) Blood Pressure Kit - Blood Pressure Kit - 05/08/2020 12:00:00 AM EST suspended Blood Pressure Kit - eCW1 ([facility]) Blood Pressure Kit - Blood Pressure Kit - 05/08/2020 12:00:00 AM EST suspended Blood Pressure Kit - eCW1 ([facility]) Blood Pressure Kit - Blood Pressure Kit - 05/08/2020 12:00:00 AM EST suspended Blood Pressure Kit - eCW1 ([facility]) Blood Pressure Kit - Blood Pressure Kit - 05/08/2020 12:00:00 AM EST suspended Blood Pressure Kit - eCW1 ([facility]) Blood Pressure Kit - Blood Pressure Kit - 05/08/2020 12:00:00 AM EST suspended Blood Pressure Kit - eCW1 ([facility]) ALTERNATING PRESSURE MATTRESS - UNK 03/08/2020 12:00:00 AM EDT suspended ALTERNATING PRESSURE MATTRESS - eCW1 ([facility]) Trapeze - UNK 03/08/2020 12:00:00 AM EDT suspende d Trapeze - eCW1 ([facility]) ALTERNATING PRESSURE MATTRESS - UNK 03/08/2020 12:00:00 AM EDT suspended ALTERNATING PRESSURE MATTRESS - eCW1 ([facility]) Trapeze - UNK 03/08/2020 12:00:00 AM EDT active Trapeze - eCW1 ([facility]) Trapeze - UNK 03/08/2020 12:00:00 AM EDT suspende d Trapeze - eCW1 ([facility]) ALTERNATING PRESSURE MATTRESS - UNK 03/08/2020 12:00:00 AM EDT suspended ALTERNATING PRESSURE MATTRESS - eCW1 ([facility]) ALTERNATING PRESSURE MATTRESS - UNK 03/08/2020 12:00:00 AM EDT suspended ALTERNATING PRESSURE MATTRESS - eCW1 ([facility]) ALTERNATING PRESSURE MATTRESS - UNK 03/08/2020 12:00:00 AM EDT active ALTERNATING PRESSURE MATTRESS - eCW1 ([facility]) Trapeze - UNK 03/08/2020 12:00:00 AM EDT suspende d Trapeze - eCW1 ([facility]) ALTERNATING PRESSURE MATTRESS - UNK 03/08/2020 12:00:00 AM EDT suspended ALTERNATING PRESSURE MATTRESS - eCW1 ([facility]) ALTERNATING PRESSURE MATTRESS - UNK 03/08/2020 12:00:00 AM EDT suspended ALTERNATING PRESSURE MATTRESS - eCW1 ([facility]) Trapeze - UNK 03/08/2020 12:00:00 AM EDT suspende d Trapeze - eCW1 ([facility]) ALTERNATING PRESSURE MATTRESS - UNK 03/08/2020 12:00:00 AM EDT suspended ALTERNATING PRESSURE MATTRESS - eCW1 ([facility]) ALTERNATING PRESSURE MATTRESS - UNK 03/08/2020 12:00:00 AM EDT suspended ALTERNATING PRESSURE MATTRESS - eCW1 ([facility]) ALTERNATING PRESSURE MATTRESS - UNK 03/08/2020 12:00:00 AM EDT suspended ALTERNATING PRESSURE MATTRESS - eCW1 ([facility]) Trapeze - UNK 03/08/2020 12:00:00 AM EDT suspende d Trapeze - eCW1 ([facility]) ALTERNATING PRESSURE MATTRESS - UNK 03/08/2020 12:00:00 AM EDT suspended ALTERNATING PRESSURE MATTRESS - eCW1 ([facility]) Trapeze - UNK 03/08/2020 12:00:00 AM EDT suspende d Trapeze - eCW1 ([facility]) Trapeze - UNK 03/08/2020 12:00:00 AM EDT suspende d Trapeze - eCW1 ([facility]) Trapeze - UNK 03/08/2020 12:00:00 AM EDT suspende d Trapeze - eCW1 ([facility]) Trapeze - UNK 03/08/2020 12:00:00 AM EDT suspende d Trapeze - eCW1 ([facility]) Trapeze - UNK 03/08/2020 12:00:00 AM EDT suspende d Trapeze - eCW1 ([facility]) Trapeze - UNK 03/08/2020 12:00:00 AM EDT suspende d Trapeze - eCW1 ([facility]) Trapeze - UNK 03/08/2020 12:00:00 AM EDT suspende d Trapeze - eCW1 ([facility]) ALTERNATING PRESSURE MATTRESS - UNK 03/08/2020 12:00:00 AM EDT suspended ALTERNATING PRESSURE MATTRESS - eCW1 ([facility]) ALTERNATING PRESSURE MATTRESS - UNK 03/08/2020 12:00:00 AM EDT suspended ALTERNATING PRESSURE MATTRESS - eCW1 ([facility]) ALTERNATING PRESSURE MATTRESS - UNK 03/08/2020 12:00:00 AM EDT suspended ALTERNATING PRESSURE MATTRESS - eCW1 ([facility]) ALTERNATING PRESSURE MATTRESS - UNK 03/08/2020 12:00:00 AM EDT suspended ALTERNATING PRESSURE MATTRESS - eCW1 ([facility]) ALTERNATING PRESSURE MATTRESS - UNK 03/08/2020 12:00:00 AM EDT suspended ALTERNATING PRESSURE MATTRESS - eCW1 ([facility]) Trapeze - UNK 03/08/2020 12:00:00 AM EDT suspende d Trapeze - eCW1 ([facility]) ALTERNATING PRESSURE MATTRESS - UNK 03/08/2020 12:00:00 AM EDT suspended ALTERNATING PRESSURE MATTRESS - eCW1 ([facility]) ALTERNATING PRESSURE MATTRESS - UNK 03/08/2020 12:00:00 AM EDT active ALTERNATING PRESSURE MATTRESS - eCW1 ([facility]) ALTERNATING PRESSURE MATTRESS - UNK 03/08/2020 12:00:00 AM EDT suspended ALTERNATING PRESSURE MATTRESS - eCW1 ([facility]) Trapeze - UNK 03/08/2020 12:00:00 AM EDT active Trapeze - eCW1 ([facility]) ALTERNATING PRESSURE MATTRESS - UNK 03/08/2020 12:00:00 AM EDT suspended ALTERNATING PRESSURE MATTRESS - eCW1 ([facility]) ALTERNATING PRESSURE MATTRESS - UNK 03/08/2020 12:00:00 AM EDT active ALTERNATING PRESSURE MATTRESS - eCW1 ([facility]) Trapeze - UNK 03/08/2020 12:00:00 AM EDT active Trapeze - eCW1 ([facility]) Trapeze - UNK 03/08/2020 12:00:00 AM EDT suspende d Trapeze - eCW1 ([facility]) Trapeze - UNK 03/08/2020 12:00:00 AM EDT suspende d Trapeze - eCW1 ([facility]) Trapeze - UNK 03/08/2020 12:00:00 AM EDT suspende d Trapeze - eCW1 ([facility]) Trapeze - UNK 03/08/2020 12:00:00 AM EDT suspende d Trapeze - eCW1 ([facility]) ALTERNATING PRESSURE MATTRESS - UNK 03/08/2020 12:00:00 AM EDT suspended ALTERNATING PRESSURE MATTRESS - eCW1 ([facility]) Trapeze - UNK 03/08/2020 12:00:00 AM EDT suspende d Trapeze - eCW1 ([facility]) Trapeze - UNK 03/08/2020 12:00:00 AM EDT suspende d Trapeze - eCW1 ([facility]) ALTERNATING PRESSURE MATTRESS - UNK 03/08/2020 12:00:00 AM EDT suspended ALTERNATING PRESSURE MATTRESS - eCW1 ([facility]) Trapeze - UNK 03/08/2020 12:00:00 AM EDT suspende d Trapeze - eCW1 ([facility]) ALTERNATING PRESSURE MATTRESS - UNK 03/08/2020 12:00:00 AM EDT suspended ALTERNATING PRESSURE MATTRESS - eCW1 ([facility]) Trapeze - UNK 03/08/2020 12:00:00 AM EDT suspende d Trapeze - eCW1 ([facility]) ALTERNATING PRESSURE MATTRESS - UNK 03/08/2020 12:00:00 AM EDT suspended ALTERNATING PRESSURE MATTRESS - eCW1 ([facility]) Trapeze - UNK 03/08/2020 12:00:00 AM EDT suspende d Trapeze - eCW1 ([facility]) Trapeze - UNK 03/08/2020 12:00:00 AM EDT suspende d Trapeze - eCW1 ([facility]) ALTERNATING PRESSURE MATTRESS - UNK 03/08/2020 12:00:00 AM EDT suspended ALTERNATING PRESSURE MATTRESS - eCW1 ([facility]) ALTERNATING PRESSURE MATTRESS - UNK 03/08/2020 12:00:00 AM EDT suspended ALTERNATING PRESSURE MATTRESS - eCW1 ([facility]) Trapeze - UNK 03/08/2020 12:00:00 AM EDT suspende d Trapeze - eCW1 ([facility]) Incontinence Brief Large - Incontinence Brief Large - 2019 12:00:00 AM EDT active Incontinence Brie f Large - eCW1 ([facility]) Incontinence Brief Large - Incontinence Brief Large - 2019 12:00:00 AM EDT suspended Incontinence B rief Large - eCW1 ([facility]) Incontinence Brief Large - Incontinence Brief Large - 2019 12:00:00 AM EDT suspended Incontinence B rief Large - eCW1 ([facility]) Incontinence Brief Large - Incontinence Brief Large - 2019 12:00:00 AM EDT suspended Incontinence B rief Large - eCW1 ([facility]) Incontinence Brief Large - Incontinence Brief Large - 2019 12:00:00 AM EDT suspended Incontinence B rief Large - eCW1 ([facility]) Incontinence Brief Large - Incontinence Brief Large - 2019 12:00:00 AM EDT suspended Incontinence B rief Large - eCW1 ([facility]) ALTERNATING PRESSURE MATTRESS - UNK 03/07/2020 12:00:00 AM EDT active ALTERNATING PRESSURE MATTRESS - eCW1 ([facility]) Incontinence Brief Large - Incontinence Brief Large - 2019 12:00:00 AM EDT suspended Incontinence B rief Large - eCW1 ([facility]) Incontinence Brief Large - Incontinence Brief Large - 2019 12:00:00 AM EDT suspended Incontinence B rief Large - eCW1 ([facility]) Incontinence Brief Large - Incontinence Brief Large - 2019 12:00:00 AM EDT suspended Incontinence B rief Large - eCW1 ([facility]) Incontinence Brief Large - Incontinence Brief Large - 2019 12:00:00 AM EDT suspended Incontinence B rief Large - eCW1 ([facility]) Incontinence Brief Large - Incontinence Brief Large - 2019 12:00:00 AM EDT active Incontinence Brie f Large - eCW1 ([facility]) Incontinence Brief Large - Incontinence Brief Large - 2019 12:00:00 AM EDT suspended Incontinence B rief Large - eCW1 ([facility]) Incontinence Brief Large - Incontinence Brief Large - 2019 12:00:00 AM EDT suspended Incontinence B rief Large - eCW1 ([facility]) Incontinence Brief Large - Incontinence Brief Large - 2019 12:00:00 AM EDT suspended Incontinence B rief Large - eCW1 ([facility]) Incontinence Brief Large - Incontinence Brief Large - 2019 12:00:00 AM EDT suspended Incontinence B rief Large - eCW1 ([facility]) Incontinence Brief Large - Incontinence Brief Large - 2019 12:00:00 AM EDT suspended Incontinence B rief Large - eCW1 ([facility]) Incontinence Brief Large - Incontinence Brief Large - 2019 12:00:00 AM EDT active Incontinence Brie f Large - eCW1 ([facility]) Incontinence Brief Large - Incontinence Brief Large - 2019 12:00:00 AM EDT suspended Incontinence B rief Large - eCW1 ([facility]) Incontinence Brief Large - Incontinence Brief Large - 2019 12:00:00 AM EDT suspended Incontinence B rief Large - eCW1 ([facility]) Incontinence Brief Large - Incontinence Brief Large - 2019 12:00:00 AM EDT suspended Incontinence B rief Large - eCW1 ([facility]) Incontinence Brief Large - Incontinence Brief Large - 2019 12:00:00 AM EDT suspended Incontinence B ncef Large - eCW1 ([facility]) Incontinence Brief Large - Incontinence Brief Large - 2019 12:00:00 AM EDT suspended Incontinence B [facility] Large - eCW1 ([facility]) Incontinence Brief Large - Incontinence Brief Large - 2019 12:00:00 AM EDT active Incontinence Brie f Large - eCW1 ([facility]) Incontinence Brief Large - Incontinence Brief Large - 2019 12:00:00 AM EDT suspended Incontinence B ncef Large - eCW1 ([facility]) Incontinence Brief Large - Incontinence Brief Large - 2019 12:00:00 AM EDT active Incontinence Brie f Large - eCW1 ([facility]) Incontinence Brief Large - Incontinence Brief Large - 2019 12:00:00 AM EDT suspended Incontinence B [facility] Large - eCW1 ([facility]) ALTERNATING PRESSURE MATTRESS - UNK 03/07/2020 12:00:00 AM EDT active ALTERNATING PRESSURE MATTRESS - eCW1 ([facility]) Incontinence Brief Large - Incontinence Brief Large - 2019 12:00:00 AM EDT suspended Incontinence B ncef Large - eCW1 ([facility]) Incontinence Brief Large - Incontinence Brief Large - 2019 12:00:00 AM EDT suspended Incontinence B [facility] Large - eCW1 ([facility]) Incontinence Brief Large - Incontinence Brief Large - 2019 12:00:00 AM EDT suspended Incontinence B [facility] Large - eCW1 ([facility]) Gastrostomy care - UNK 03/06/2020 12:00:00 AM EDT suspended Gastrostomy care - eCW1 ([facility]) Curity Wood Catheter Tray - Curity Wood Catheter Tray - 12:00:00 AM EDT suspended Curity Wood C atheter Tray - eCW1 ([facility]) Curity Wood Catheter Tray - Curity Wood Catheter Tray - 12:00:00 AM EDT active Curity Wood Cath eter Tray - eCW1 ([facility]) Gastrostomy care - UNK 03/06/2020 12:00:00 AM EDT active Gastrostomy care - eCW1 ([facility]) Curity Wood Catheter Tray - Curity Wood Catheter Tray - 12:00:00 AM EDT suspended Curity Wood C atheter Tray - eCW1 ([facility]) 4x4 UNK 03/06/2020 12:00:00 AM EDT active 4x4 eCW1 ([facility]) Gastrostomy care - UNK 03/06/2020 12:00:00 AM EDT suspended Gastrostomy care - eCW1 ([facility]) Gastrostomy care - UNK 03/06/2020 12:00:00 AM EDT active Gastrostomy care - eCW1 ([facility]) 4x4 UNK 03/06/2020 12:00:00 AM EDT active 4x4 eCW1 ([facility]) Curity Wood Catheter Tray - Curity Wood Catheter Tray - 12:00:00 AM EDT suspended Curity Wood C atheter Tray - eCW1 ([facility]) Curity Wood Catheter Tray - Curity Wood Catheter Tray - 12:00:00 AM EDT suspended Curity Wood C atheter Tray - eCW1 ([facility]) Gastrostomy care - UNK 03/06/2020 12:00:00 AM EDT suspended Gastrostomy care - eCW1 ([facility]) Gastrostomy care - UNK 03/06/2020 12:00:00 AM EDT suspended Gastrostomy care - eCW1 ([facility]) Curity Wood Catheter Tray - Curity Wood Catheter Tray - 12:00:00 AM EDT suspended Curity Wood C atheter Tray - eCW1 ([facility]) Gastrostomy care - UNK 03/06/2020 12:00:00 AM EDT suspended Gastrostomy care - eCW1 ([facility]) Curity Wood Catheter Tray - Curity Wood Catheter Tray - 12:00:00 AM EDT active Curity Wood Cath eter Tray - eCW1 ([facility]) Gastrostomy care - UNK 03/06/2020 12:00:00 AM EDT active Gastrostomy care - eCW1 ([facility]) Curity Wood Catheter Tray - Curity Wood Catheter Tray - 12:00:00 AM EDT suspended Curity Wood C atheter Tray - eCW1 ([facility]) 4x4 UNK 03/06/2020 12:00:00 AM EDT active 4x4 eCW1 ([facility]) Tracheostomy Care - UNK 03/06/2020 12:00:00 AM EDT active Tracheostomy Care - eCW1 ([facility]) Gastrostomy care - UNK 03/06/2020 12:00:00 AM EDT suspended Gastrostomy care - eCW1 ([facility]) Optifoam 4"X4" Optifoam 4"X4" 03/06/2020 12:00:00 AM EDT active Optifoam 4"X4" eCW1 ([facility]) Curity Wood Catheter Tray - Curity Wood Catheter Tray - 12:00:00 AM EDT suspended Curity Wood C atheter Tray - eCW1 ([facility]) Gastrostomy care - UNK 03/06/2020 12:00:00 AM EDT suspended Gastrostomy care - eCW1 ([facility]) Tracheostomy Care - UNK 03/06/2020 12:00:00 AM EDT active Tracheostomy Care - eCW1 ([facility]) Tracheostomy Care - UNK 03/06/2020 12:00:00 AM EDT active Tracheostomy Care - eCW1 ([facility]) Curity Wood Catheter Tray - Curity Wood Catheter Tray - 12:00:00 AM EDT suspended Curity Wood C atheter Tray - eCW1 ([facility]) Gastrostomy care - UNK 03/06/2020 12:00:00 AM EDT suspended Gastrostomy care - eCW1 ([facility]) Optifoam 4"X4" Optifoam 4"X4" 03/06/2020 12:00:00 AM EDT active Optifoam 4"X4" eCW1 ([facility]) Optifoam 4"X4" Optifoam 4"X4" 03/06/2020 12:00:00 AM EDT active Optifoam 4"X4" eCW1 ([facility]) Tracheostomy Care - UNK 03/06/2020 12:00:00 AM EDT active Tracheostomy Care - eCW1 ([facility]) Curity Wood Catheter Tray - Curity Wood Catheter Tray - 12:00:00 AM EDT suspended Curity Wood C atheter Tray - eCW1 ([facility]) Curity Wood Catheter Tray - Curity Wood Catheter Tray - 12:00:00 AM EDT active Curity Wood Cath eter Tray - eCW1 ([facility]) Gastrostomy care - UNK 03/06/2020 12:00:00 AM EDT suspended Gastrostomy care - eCW1 ([facility]) Curity Wood Catheter Tray - Curity Wood Catheter Tray - 12:00:00 AM EDT suspended Curity Wood C atheter Tray - eCW1 ([facility]) Optifoam 4"X4" Optifoam 4"X4" 03/06/2020 12:00:00 AM EDT active Optifoam 4"X4" eCW1 ([facility]) Tracheostomy Care - UNK 03/06/2020 12:00:00 AM EDT active Tracheostomy Care - eCW1 ([facility]) 4x4 UNK 03/06/2020 12:00:00 AM EDT active 4x4 eCW1 ([facility]) Gastrostomy care - UNK 03/06/2020 12:00:00 AM EDT suspended Gastrostomy care - eCW1 ([facility]) Optifoam 4"X4" Optifoam 4"X4" 03/06/2020 12:00:00 AM EDT active Optifoam 4"X4" eCW1 ([facility]) Optifoam 4"X4" Optifoam 4"X4" 03/06/2020 12:00:00 AM EDT active Optifoam 4"X4" eCW1 ([facility]) Curity Wood Catheter Tray - Curity Wood Catheter Tray - 12:00:00 AM EDT suspended Curity Wood C atheter Tray - eCW1 ([facility]) Gastrostomy care - UNK 03/06/2020 12:00:00 AM EDT active Gastrostomy care - eCW1 ([facility]) Tracheostomy Care - UNK 03/06/2020 12:00:00 AM EDT active Tracheostomy Care - eCW1 ([facility]) Curity Wood Catheter Tray - Curity Wood Catheter Tray - 12:00:00 AM EDT active Curity Wood Cath eter Tray - eCW1 ([facility]) Gastrostomy care - UNK 03/06/2020 12:00:00 AM EDT suspended Gastrostomy care - eCW1 ([facility]) Gastrostomy care - UNK 03/06/2020 12:00:00 AM EDT suspended Gastrostomy care - eCW1 ([facility]) Gastrostomy care - UNK 03/06/2020 12:00:00 AM EDT suspended Gastrostomy care - eCW1 ([facility]) 4x4 UNK 03/06/2020 12:00:00 AM EDT active 4x4 eCW1 ([facility]) Tracheostomy Care - UNK 03/06/2020 12:00:00 AM EDT active Tracheostomy Care - eCW1 ([facility]) Curity Wood Catheter Tray - Curity Wood Catheter Tray - 10 /10/2019 12:00:00 AM EDT suspended Curity Wood C atheter Tray - eCW1 ([facility]) Optifoam 4"X4" Optifoam 4"X4" 03/06/2020 12:00:00 AM EDT active Optifoam 4"X4" eCW1 ([facility]) Gastrostomy care - UNK 03/06/2020 12:00:00 AM EDT suspended Gastrostomy care - eCW1 ([facility]) Curity Wood Catheter Tray - Curity Wood Catheter Tray - 12:00:00 AM EDT suspended Curity Wood C atheter Tray - eCW1 ([facility]) Curity Wood Catheter Tray - Curity Wood Catheter Tray - 12:00:00 AM EDT suspended Curity Wood C atheter Tray - eCW1 ([facility]) 4x4 UNK 03/06/2020 12:00:00 AM EDT active 4x4 eCW1 ([facility]) Tracheostomy Care - UNK 03/06/2020 12:00:00 AM EDT active Tracheostomy Care - eCW1 ([facility]) Curity Wood Catheter Tray - Curity Wood Catheter Tray - 12:00:00 AM EDT suspended Curity Wood C atheter Tray - eCW1 ([facility]) Gastrostomy care - UNK 03/06/2020 12:00:00 AM EDT suspended Gastrostomy care - eCW1 ([facility]) Curity Wood Catheter Tray - Curity Wood Catheter Tray - 12:00:00 AM EDT suspended Curity Wood C atheter Tray - eCW1 ([facility]) Curity Wood Catheter Tray - Curity Wood Catheter Tray - 12:00:00 AM EDT active Curity Wood Cath eter Tray - eCW1 ([facility]) Gastrostomy care - UNK 03/06/2020 12:00:00 AM EDT suspended Gastrostomy care - eCW1 ([facility]) Curity Wood Catheter Tray - Curity Wood Catheter Tray - 12:00:00 AM EDT suspended Curity Wood C atheter Tray - eCW1 ([facility]) Tracheostomy Care - UNK 03/06/2020 12:00:00 AM EDT active Tracheostomy Care - eCW1 ([facility]) Optifoam 4"X4" Optifoam 4"X4" 03/06/2020 12:00:00 AM EDT active Optifoam 4"X4" eCW1 ([facility]) 4x4 UNK 03/06/2020 12:00:00 AM EDT active 4x4 eCW1 ([facility]) 4x4 UNK 03/06/2020 12:00:00 AM EDT active 4x4 eCW1 ([facility]) Optifoam 4"X4" Optifoam 4"X4" 03/06/2020 12:00:00 AM EDT active Optifoam 4"X4" eCW1 ([facility]) Optifoam 4"X4" Optifoam 4"X4" 03/06/2020 12:00:00 AM EDT active Optifoam 4"X4" eCW1 ([facility]) Curity Wood Catheter Tray - Curity Wood Catheter Tray - 12:00:00 AM EDT suspended Curity Wood C atheter Tray - eCW1 ([facility]) 4x4 UNK 03/06/2020 12:00:00 AM EDT active 4x4 eCW1 ([facility]) 4x4 UNK 03/06/2020 12:00:00 AM EDT active 4x4 eCW1 ([facility]) Gastrostomy care - UNK 03/06/2020 12:00:00 AM EDT active Gastrostomy care - eCW1 ([facility]) Optifoam 4"X4" Optifoam 4"X4" 03/06/2020 12:00:00 AM EDT active Optifoam 4"X4" eCW1 ([facility]) Gastrostomy care - UNK 03/06/2020 12:00:00 AM EDT suspended Gastrostomy care - eCW1 ([facility]) Gastrostomy care - UNK 03/06/2020 12:00:00 AM EDT suspended Gastrostomy care - eCW1 ([facility]) Curity Wood Catheter Tray - Curity Wood Catheter Tray - 12:00:00 AM EDT suspended Curity Wood C atheter Tray - eCW1 ([facility]) Gastrostomy care - UNK 03/06/2020 12:00:00 AM EDT suspended Gastrostomy care - eCW1 ([facility]) Gastrostomy care - UNK 03/06/2020 12:00:00 AM EDT suspended Gastrostomy care - eCW1 ([facility]) 4x4 UNK 03/06/2020 12:00:00 AM EDT active 4x4 eCW1 ([facility]) Tracheostomy Care - UNK 03/06/2020 12:00:00 AM EDT active Tracheostomy Care - eCW1 ([facility]) Tracheostomy Care - UNK 03/06/2020 12:00:00 AM EDT active Tracheostomy Care - eCW1 ([facility]) Curity Wood Catheter Tray - Curity Wood Catheter Tray - 12:00:00 AM EDT suspended Curity Wood C atheter Tray - eCW1 ([facility]) Curity Wood Catheter Tray - Curity Wood Catheter Tray - 12:00:00 AM EDT active Curity Wood Cath eter Tray - eCW1 ([facility]) Curity Wood Catheter Tray - Curity Wood Catheter Tray - 12:00:00 AM EDT suspended Curity Wood C atheter Tray - eCW1 ([facility]) 4x4 UNK 03/06/2020 12:00:00 AM EDT active 4x4 eCW1 ([facility]) Optifoam 4"X4" Optifoam 4"X4" 03/06/2020 12:00:00 AM EDT active Optifoam 4"X4" eCW1 ([facility]) Gastrostomy care - UNK 03/06/2020 12:00:00 AM EDT suspended Gastrostomy care - eCW1 ([facility]) Gastrostomy care - UNK 03/06/2020 12:00:00 AM EDT suspended Gastrostomy care - eCW1 ([facility]) Tracheostomy Care - UNK 03/06/2020 12:00:00 AM EDT active Tracheostomy Care - eCW1 ([facility]) Gastrostomy care - UNK 03/06/2020 12:00:00 AM EDT active Gastrostomy care - eCW1 ([facility]) 4x4 UNK 03/06/2020 12:00:00 AM EDT active 4x4 eCW1 ([facility]) Curity Wood Catheter Tray - Curity Wood Catheter Tray - 12:00:00 AM EDT suspended Curity Wood C atheter Tray - eCW1 ([facility]) Gastrostomy care - UNK 03/06/2020 12:00:00 AM EDT active Gastrostomy care - eCW1 ([facility]) Curity Wood Catheter Tray - Curity Wood Catheter Tray - 12:00:00 AM EDT active Curity Wood Cath eter Tray - eCW1 ([facility]) Curity Wood Catheter Tray - Curity Wood Catheter Tray - 12:00:00 AM EDT suspended Curity Wood C atheter Tray - eCW1 ([facility]) Gastrostomy care - UNK 03/06/2020 12:00:00 AM EDT suspended Gastrostomy care - eCW1 ([facility]) 4x4 UNK 03/06/2020 12:00:00 AM EDT active 4x4 eCW1 ([facility]) Curity Wood Catheter Tray - Curity Wood Catheter Tray - 12:00:00 AM EDT suspended Curity Wood C atheter Tray - eCW1 ([facility]) Tracheostomy Care - UNK 03/06/2020 12:00:00 AM EDT active Tracheostomy Care - eCW1 ([facility]) Optifoam 4"X4" Optifoam 4"X4" 03/06/2020 12:00:00 AM EDT active Optifoam 4"X4" eCW1 ([facility]) Gastrostomy care - UNK 03/06/2020 12:00:00 AM EDT suspended Gastrostomy care - eCW1 ([facility]) Tracheostomy Care - UNK 03/06/2020 12:00:00 AM EDT active Tracheostomy Care - eCW1 ([facility]) Optifoam 4"X4" Optifoam 4"X4" 03/06/2020 12:00:00 AM EDT active Optifoam 4"X4" eCW1 ([facility]) Atenolol 25 MG Atenolol 03/02/2020 01:00:00 AM EDT completed NETSMART ([facility]) Polyethylene Glycol 3350 17 GM Polyethylene Glycol 3350 07/2019 01:00:00 AM EDT 17.0 {gm} completed NETS MART ([facility]) Propylene Glycol 0.6 % Propylene Glycol 03/02/2020 01:00:00 AM EDT 1.0 {gtt} completed NETSMART ( [facility]) Nystatin Powder Nystatin Powder 03/02/2020 01:00:00 AM EDT 1.0 { asd} completed NETSMART ([facility]) GuaiFENesin 100 MG/5ML GuaiFENesin 03/02/2020 01:00:00 AM EDT completed NETSMART ([facility]) PredniSONE 5 MG PredniSONE 03/02/2020 01:00:00 AM EDT 5.0 {mg} completed NETSMART ([facility]) predniSONE 10 MG predniSONE 03/02/2020 01:00:00 AM EDT 10.0 {mg} completed NETSMART ([facility]) Ipratropium-Albuterol 0.5-2.5 (3) MG/3ML Ipratropium-Albuter ol 03/02/2020 01:00:00 AM EDT completed NETSMART ([facility]) hydrOXYzine HCl 25 MG hydrOXYzine HCl 03/02/2020 01:00:00 AM EDT completed NETSMART ([facility]) Metoclopramide HCl 5 MG Metoclopramide HCl 03/02/2020 01:00:00 AM EDT completed NETSMART ([facility]) Methocarbamol 500 MG Methocarbamol 03/02/2020 01:00:00 AM EDT 50 0.0 {mg} completed NETSMART ([facility]) Melatonin 5 MG Melatonin 03/02/2020 01:00:00 AM EDT 5.0 {mg} completed NETSMART ([facility]) Acetaminophen 325 MG Acetaminophen 03/02/2020 01:00:00 AM EDT 65 0.0 {mg} completed NETSMART ([facility]) Sennosides 8.6 MG Sennosides 03/02/2020 01:00:00 AM EDT 8.6 {mg} completed NETSMART ([facility]) Docusate Sodium 283 MG Docusate Sodium 03/02/2020 01:00:00 AM EDT 283.0 {mg} completed NETSMART ( [facility]) Diclofenac Sodium 1 % Diclofenac Sodium 03/02/2020 01:00:00 AM EDT 1.0 {gm} completed NETSMART ([facility]) Gabapentin (Once-Daily) 600 MG Gabapentin (Once-Daily) 03/02 01:00:00 AM EDT 600.0 {mg} completed NET SMART ([facility]) DULoxetine HCl 60 MG DULoxetine HCl 03/02/2020 01:00:00 AM EDT 6 0.0 {mg} completed NETSMART ([facility]) Meloxicam 7.5 MG Meloxicam 03/02/2020 01:00:00 AM EDT 7.5 {mg} completed NETSMART ([facility]) Hydroxychloroquine Sulfate 200 MG Hydroxychloroquine Sulfate 03/02/2020 01:00:00 AM EDT 200.0 {mg} completed NET SMART ([facility]) Docusate Sodium 100 MG Docusate Sodium 03/02/2020 01:00:00 AM EDT 100.0 {mg} completed NETSMART ( [facility]) Buprenorphine HCl-Naloxone HCl 4-1 MG Buprenorphine HCl-Nalo xone HCl 03/02/2020 01:00:00 AM EDT completed NETSMART ([facility]) duloxetine 60 MG Delayed Release Oral Ca psule DULoxetine (CYMBALTA) DR capsule 60 mg DULoxetine (CYMBALTA) DR capsule 60 mg 02/17/2020 09:00:00 AM EDT 60 mg Oral active 60 mg, Oral, D aily Standard, First dose (after last modification) on Thu02/17/20 at 0900, For 24 doses
Do not crush or chew, however, capsules may be opened (as long as pellets are not crushed or damaged to alter the delayed release coating) and administer immediately after sprinkling over apple sauce or in apple juice or water.Contents of capsule can also be added to a plastic catheter tip syringe with 50 mL of water and shaken for 10 seconds before administering through a 12 [place] or larger nasogastric tube.
[facility] Medication administered onsite Prednisone 10 MG Oral Tablet predniSONE 10 MG Oral Tab let (DELTASONE) predniSONE 10 MG Oral Tablet (DELTASONE) 02/17/2020 12:00:00 AM EDT 10 mg Ora l active Take 1 tablet by mouth daily [facility] POLYETHYLENE GLYCOL 3350 142 MG/ML Oral Solution Polyethylene Glycol 3350 17 GM Oral Packet (MIRALAX) Polyethylene Glycol 3350 17 GM Oral Packet (MIRALAX) 02/17/2020 12:00:00 AM EDT 17 g Oral active Take 1 packet by mouth daily Please substitute bottle for packets, if packets are unavailable. [facility] duloxetine 60 MG Delayed Release Oral Ca psule DULoxetine HCl 60 MG Oral Capsule Delayed Release Particles (CYMBALTA) DULoxetine HCl 60 MG Oral Capsule Delaye d Release Particles (CYMBALTA) 02/17/2020 12:00:00 AM EDT 60 mg Oral active Take 1 capsule by mouth daily [facility] meloxicam 7.5 MG Oral Tablet Meloxicam 7.5 MG Oral Tab let (MOBIC) Meloxicam 7.5 MG Oral Tablet (MOBIC) 02/17/2020 12:00:00 AM EDT 7.5 mg Oral active Take 1 tablet by mouth daily with breakfast [facility] Hydroxychloroquine Sulfate 200 MG Oral T ablet Hydroxychloroquine Sulfate 200 MG Oral Tablet (PLAQUENIL) Hydroxychloroquine Sulfate 200 MG Oral T ablet (PLAQUENIL) 02/17/2020 12:00:00 AM EDT 200 mg Oral active Take 1 tablet by mouth daily [facility] Atenolol 25 MG Oral Tablet Atenolol 25 MG Oral Tablet (TENORMIN) Atenolol 25 MG Oral Tablet (TENORMIN) 02/17/2020 12:00:00 AM EDT 12.5 mg Oral active Take 0.5 tablets by mouth daily [facility] Buprenorphine 4 MG / Naloxone 1 MG Oral Strip Buprenorphine HCl-Naloxone HCl 4-1 MG Sublingual Film (SUBOXONE) Buprenorphine HCl-Naloxone HCl 4-1 MG Garcia blingual Film (SUBOXONE) 02/17/2020 12:00:00 AM EDT 1 {film} Sublingual aborted Place 1 Film under the tongue Two Times Daily , Max Da maryana Dose: 2 Film [facility] gabapentin 600 MG Oral Tablet Gabapentin 600 MG Oral T ablet (NEURONTIN) Gabapentin 600 MG Oral Tablet (NEURONTIN) 02/17/2020 12:00:00 AM EDT 900 mg Oral active Take 1.5 tablets by mouth Three times daily [facility] Buprenorphine 4 MG / Naloxone 1 MG Oral Strip Buprenorphine HCl-Naloxone HCl 4-1 MG Sublingual Film (SUBOXONE) Buprenorphine HCl-Naloxone HCl 4-1 MG Garcia blingual Film (SUBOXONE) 02/17/2020 12:00:00 AM EDT 1 {film} Sublingual active Place 1 Film under the tongue Two Times Daily , Max Daily Dose: 2 Film [facility] sennosides, NURSING HOME 8.6 MG Oral Tablet senna tablet 2 tablet sen na tablet 2 tablet 02/16/2020 10:00:00 PM EDT 2 {tbl} Oral active 2 tablet, Oral, Nightly, First dose on Alina 02/16/20 at 2200, For 30 days [facility] Medication administered onsite Melatonin 5 MG Oral Tablet melatonin tablet 5 mg melatonin t ablet 5 mg 02/16/2020 09:00:00 PM EDT 5 mg Oral active 5 mg, Oral, Nightly, First dose (after last modification) on Alina 02/16/20 at 2100, For 26 doses [facility] Medication administered onsite Methocarbamol 500 MG Oral Tablet methocarbamol (ROBAXI N) tablet 500 mg methocarbamol (ROBAXIN) tablet 500 mg 02/16/2020 01:00:00 PM EDT 50 0 mg Oral active 500 mg, Oral, F our Times Daily Standard, First dose (after last modification) on [facility] 02/16/20 at 1300, For 59 doses [facility] Medication administered onsite Guaifenesin 20 MG/ML Oral Solution guaiF ENesin (ROBITUSSIN) 100 MG/5ML solution 200 mg guaiFENesin (ROBITUSSIN) 100 MG/5ML solution 200 mg 12:08:15 PM EDT 200 mg Oral active 200 mg, Oral, Every 4 hours PRN, secretions, Starting [facility] 02/16/20 at 1208, For 189 hours [facility] Medication administered onsite Prednisone 20 MG Oral Tablet predniSONE (DELTASONE) ta blet 10 mg predniSONE (DELTASONE) tablet 10 mg 02/16/2020 09:00:00 AM EDT 10 mg Oral active 10 mg, Oral, Daily Standard, First dose (after last modification) on [facility] 02/16/20 at 0900, For 30 days
Take with food.
[facility] Medication administered onsite sennosides, NURSING HOME 8.6 MG Oral Tablet Senna 8.6 MG Oral T ablet Senna 8.6 MG Oral Tablet 02/16/2020 12:00:00 AM EDT 2 {tbl} Oral active Take 2 tablets by mouth nightly [facility] Prednisone 5 MG Oral Tablet predniSONE 5 MG Oral Table t (DELTASONE) predniSONE 5 MG Oral Tablet (DELTASONE) 02/16/2020 12:00:00 AM EDT 5 mg Oral active Take 1 tablet by mouth every evening [facility] Metoclopramide 5 MG Oral Tablet Metoclopramide HCl 5 M G Oral Tablet (REGLAN) Metoclopramide HCl 5 MG Oral Tablet (REGLAN) 02/16/2020 12:00:00 AM EDT 5 mg Oral active Take 1 tablet by mali Two Times Daily for 10 days [facility] Nystatin 100 UNT/MG Topical Powder Nysta tin [id number] UNIT/GM External Powder (Nystatin) Nystatin 934725 UNIT/GM External Powder (Nystatin) 12:00:00 AM EDT active Utilize two times a day to affected areas [facility] Guaifenesin 20 MG/ML Oral Solution guaiF ENesin 100 MG/5ML Oral Solution (ROBITUSSIN) guaiFENesin 100 MG/5ML Oral Solution (ROBITUSSIN) 01/30 12:00:00 AM EDT 200 mg Oral active Take 10 mLs by mouth every 4 (four) hours as needed (secretions) [facility] Docusate Sodium 56.6 MG/ML Enema Docusate Sodium 283 M G Rectal Enema (ENEMEEZ) Docusate Sodium 283 MG Rectal Enema (ENEMEEZ) 02/16/2020 12:00:00 AM EDT [address] 5 mLs rectally daily [facility] Docusate Sodium 100 MG Oral Capsule Docu sate Sodium 100 MG Oral Capsule (Colace) Docusate Sodium 100 MG Oral Capsule (Colace) 02/16/2020 12:00:00 AM EDT 100 mg Oral active Take 1 capsule by mouth Two Times Daily for 10 days [facility] gabapentin 300 MG Oral Capsule Gabapentin 300 MG Oral Capsule (NEURONTIN) Gabapentin 300 MG Oral Capsule (NEURONTIN) 02/16/2020 12:00:00 AM EDT 900 mg Oral aborted Take 3 capsules by m outh Three times daily [facility] Albuterol 0.833 MG/ML / Ipratropium Brom dawson 0.167 MG/ML Inhalant Solution Ipratropium-Albuterol 0.5-2.5 (3) MG/3ML Inhalation Solution (DUONEB) Ipratropium-Albuterol 0.5-2.5 (3) MG/3ML Inhalation Solution (DUONEB) 02/16/2020 12:00:00 AM EDT 3 mL Nebulization active Take 3 mLs by nebulization every 8 (eight) hours as needed [facility] Hydroxyzine Hydrochloride 25 MG Oral Tab let hydrOXYzine HCl 25 MG Oral Tablet (ATARAX) hydrOXYzine HCl 25 MG Oral Tablet (ATARAX) 02/16/2020 12:00: 00 AM EDT 25 mg Oral active Take 1 tablet by mouth every 6 (six) hours as needed for Anxiety [facility] Melatonin 5 MG Oral Tablet Melatonin 5 MG Oral Tablet 2019 12:00:00 AM EDT 5 mg Oral active Take 1 tablet by mouth nightly [facility] Acetaminophen 325 MG Oral Tablet Acetaminophen 325 MG Oral T ablet 02/16/2020 12:00:00 AM EDT 975 mg Oral active Take 3 tablets by mouth Three times daily [facility] Methocarbamol 500 MG Oral Tablet Methocarbamol 500 MG Oral Tablet (ROBAXIN) Methocarbamol 500 MG Oral Tablet (ROBAXIN) 02/16/2020 12:00:00 AM EDT 500 mg Oral active Take 1 tablet by mali th Four times daily for 10 days [facility] Carboxymethylcellulose Sodium 5 MG/ML Op hthalmic Solution Carboxymethylcellulose Sod PF 0.5 % Ophthalmic Solution (REFRESH PLUS) Carboxymethylcellulose Sod PF 0.5 % Ophthalmic Solution (REFRESH PLUS) 02/16/2020 12:00:00 AM EDT 1 [drp] Both Eyes active Place 1 drop i nto both eyes Two times daily as needed for up to 3 days [facility] Diclofenac Sodium 0.01 MG/MG Topical Gel Diclofenac Sodium 1 % Transdermal Gel (VOLTAREN) Diclofenac Sodium 1 % Transdermal Gel (VOLTAREN) 02/15 12:00:00 AM EDT 2 g Topical active Apply 2 g topically Four times daily as needed [facility] Sodium Chloride 0.111 MEQ/ML Nasal Solut ion sodium chloride (OCEAN) 0.65 % nasal spray 2 spray sodium chloride (OCEAN) 0.65 % nasal spray 2 spray 09:38:56 AM EDT 2 {spray} Each Nare active 2 spray, Each Nare, Three Times Daily-PRN, Congestion, Starting Thu02/15/20 at 0938, For 552 hours [facility] Medication administered onsite Carboxymethylcellulose Sodium 5 MG/ML Op hthalmic Solution carboxymethylcellulose PF (REFRESH PLUS) 0.5 % ophthalmic solution 1 drop carboxymethylcellulose PF (REFRESH PLUS) 0.5 % ophthalmic solution 1 drop 02/15/2020 09:38:37 AM EDT 1 [drp] Both Eyes active 1 drop, Chin th Eyes, 2 Times Daily PRN, Dry Eyes, Starting Thu02/15/20 at 0938, For 552 hours [facility] Medication administered onsite Docusate Sodium 56.6 MG/ML Enema docusate sodium (ENEM EEZ) enema 5 mL docusate sodium (ENEMEEZ) enema 5 mL 02/14/2020 07:00:00 PM EDT 5 mL Rectal active 5 mL, Rectal, Daily at 1900, First dose on Thu02/14/20 at 1900, For 30 days [facility] Medication administered onsite gabapentin 300 MG Oral Capsule gabapentin (NEURONTIN) capsule 900 mg gabapentin (NEURONTIN) capsule 900 mg 02/14/2020 05:00:00 PM EDT 900 mg Oral active 900 mg, Oral, Three Times D aily Standard, First dose on Thu02/14/20 at 1700, For 30 days [facility] Medication administered onsite Acetaminophen 325 MG Oral Tablet acetaminophen (TYLENO L) tablet 975 mg acetaminophen (TYLENOL) tablet 975 mg 02/14/2020 05:00:00 PM EDT 97 5 mg Oral active 975 mg, Oral, T hree Times Daily Standard, First dose on Thu02/14/20 at 1700, For 30 days
Maximum daily dose of acetaminophen is 3,000 mg from all sources in 24 hours.
[facility] Medication administered onsite Lactulose 667 MG/ML Oral Solution lactulose (CHRONULAC ) solution 120 mL lactulose (CHRONULAC) solution 120 mL 02/13/2020 09:45:00 AM EDT 12 0 mL Oral completed 120 mL, Oral, O nce, 02/13/20 at 0945, For 1 dose
After therapy completed
[facility] Medication administered onsite Melatonin 5 MG Oral Tablet melatonin tablet 5 mg melatonin t ablet 5 mg 02/12/2020 09:00:00 PM EDT 5 mg Per G Tube aborted 5 mg, Per G Tube, Nightly, First dose (after last modification) on 02/12/20 at 2100, For 30 days [facility] Medication administered onsite Bisacodyl 10 MG Rectal Suppository bisacodyl (DULCOLAX ) suppository 10 mg bisacodyl (DULCOLAX) suppository 10 mg 02/12/2020 06:00:00 PM EDT 10 mg Rectal aborted 10 mg, Rectal, Daily Standard, First dose on 02/12/20 at 1800, For 30 days
Please give 30 min to 60 min after eating dinner
[facility] Medication administered onsite POLYETHYLENE GLYCOL 3350 142 MG/ML Oral Solution polyethylene glycol (MIRALAX) packet 17 g polyethylene glycol (MIRALAX) packet 17 g 02/12/2020 0 9:00:00 AM EDT 17 g Oral active 17 g, Or al, Daily Standard, First dose on 02/12/20 at 0900, For 30 days
Mix in 8 ounces of water, juice or milk. Avoid use in patients who require thickened liquids due to potential increased risk for aspiration.
[facility] Medication administered onsite Lactulose 667 MG/ML Oral Solution lactulose (CHRONULAC ) solution 30 mL lactulose (CHRONULAC) solution 30 mL 02/11/2020 07:15:00 PM EDT 30 mL Oral completed 30 mL, Oral, Once, 02/11/20 a t 1915, For 1 dose [facility] Medication administered onsite Buprenorphine 4 MG / Naloxone 1 MG Oral Strip buprenorphine-naloxone (SUBOXONE) 4-1 MG per sublingual film 1 Film buprenorphine-naloxone (SUBOXONE) 4-1 MG per sublingual film 1 Film 02/11/2020 09:00:00 AM EDT Sublingual active 1 Film (4 mg of buprenorphine), Sublingual, 2 Times Daily, First dose (after last modification) on 02/11/20 at 0900, For [address] under tongue to dissolve- no eating or drinking for 15 minutes after administration.
[facility] Medication administered onsite Methocarbamol 500 MG Oral Tablet methocarbamol (ROBAXI N) tablet 500 mg methocarbamol (ROBAXIN) tablet 500 mg 02/11/2020 09:00:00 AM EDT 500 mg Per G Tube aborted 500 mg, Per G Tube, Four Times Daily Standard, First dose (after last modification) on 02/11/20 at 0900, For 20 days [facility] Medication administered onsite Buprenorphine 4 MG / Naloxone 1 MG Oral Strip buprenorphine-naloxone (SUBOXONE) 4-1 MG per sublingual film 1 Film buprenorphine-naloxone (SUBOXONE) 4-1 MG per sublingual film 1 Film 02/09/2020 09:00:00 PM EDT Sublingual aborted 1 Film (4 mg of buprenorphine), Sublingu al, 2 Times Daily, First dose on Alina 02/09/20 at 2100, For [address] under tongue to dissolve- no eating or drinking for 15 minutes after administration.
[facility] Medication administered onsite Docusate Sodium 56.6 MG/ML Enema docusate sodium (ENEM EEZ) enema 5 mL docusate sodium (ENEMEEZ) enema 5 mL 01/30/2020 06:00:00 PM EDT 5 mL Recta l aborted 5 mL, Rectal, Daily Standard, First dose on Thu01/30/20 at 1800, For 30 days [facility] Medication administered onsite Lactulose 667 MG/ML Oral Solution lactulose (CHRONULAC ) solution 60 mL lactulose (CHRONULAC) solution 60 mL 01/30/2020 04:00:00 PM EDT 60 mL Per G Tube completed 60 mL, Per G Tube, Once, 01/01 at 1600, For 1 dose [facility] Medication administered onsite 0.3 ML Enoxaparin sodium 100 MG/ML Prefi lled Syringe enoxaparin sodium (LOVENOX) injection 30 mg enoxaparin sodium (LOVENOX) injection 30 mg 01/30/2020 09:00:00 AM EDT 30 mg Subcutaneous active 30 mg, Subcutaneous, Every 12 hours Standard, First dose (after last reorder) on Thu01/30/20 at 0900, For 42 doses [facility] Medication administered onsite Buprenorphine 2 MG / Naloxone 0.5 MG Ora l Strip buprenorphine-naloxone (SUBOXONE) 2-0.5 MG per sublingual film 1 Film buprenorphine-naloxone (SUBOXONE) 2-0.5 MG per sublingual film 1 Film 01/29/2020 09:00:00 PM EDT Sublingual aborted 1 Film (2 mg of buprenorphine), Sublingual, 2 Times Daily, First dose on Thu01/29/20 at 2100, For 27 doses [facility] Medication administered onsite Metoclopramide 10 MG Oral Tablet metoclopramide (ANSON N) tablet 5 mg metoclopramide (REGLAN) tablet 5 mg 01/27/2020 09:00:00 PM EDT 5 mg Oral active 5 mg, Oral, 2 Times Daily, First dose (after last modification) on Thu01/27/20 at 2100, For 30 days [facility] Medication administered onsite Glycerin 2000 MG Rectal Suppository glycerin (laxative ) suppository 2 g glycerin (laxative) suppository 2 g 01/27/2020 06:00:00 PM EDT 1 {supposito ry} Rectal aborted 2 g (1 supposit ory), Rectal, Daily Standard, First dose on Thu01/27/20 at 1800, For 30 days
Administer 30 minutes after bolus with digital stimulation
[facility] Medication administered onsite Lactulose 667 MG/ML Oral Solution lactulose (CHRONULAC ) solution 60 mL lactulose (CHRONULAC) solution 60 mL 01/25/2020 04:00:00 PM EDT 60 mL Oral completed 60 mL, Oral, Once, Thu01/25/20 a t 1600, For 1 dose [facility] Medication administered onsite pantoprazole (PROTONIX) 2 mg/mL oral suspension 40 mg 01/24/2020 05:30:00 PM EDT 40 mg Per G Tube aborted 40 mg , Per G Tube, Two times daily before breakfast and dinner, First dose (after last modification) on Thu01/24/20 at 1730, For 30 days [facility] Medication administered onsite Albuterol 0.833 MG/ML / Ipratropium Brom dawson 0.167 MG/ML Inhalant Solution ipratropium-albuterol (DUONEB) 0.5-2.5 (3) MG/3ML nebulizer solution 3 mL ipratropium-albuterol (DUONEB) 0.5-2.5 (3) MG/3ML nebulizer solution 3 mL 01/24/2020 09:28:11 AM EDT 3 mL Nebulization active 3 mL, Nebulization, Every 8 hours PRN, Wheezing, Shortness of Breath, Starting Thu01/24/20 at 0928, For 24 days 23 hours
For Adults Q8 Hours is Hospital Standard, all orders will be changed to this unless KAE is selected 'Yes' below.
[facility] Medication administered onsite Cephalexin 500 MG Oral Capsule cephALEXin (KEFLEX) cap gladis 500 mg cephALEXin (KEFLEX) capsule 500 mg 01/24/2020 09:00:00 AM EDT 500 mg Oral completed 500 mg, Oral, 2 Times Daily, First dose on Thu01/24/20 at 0900, For 5 days [facility] Medication administered onsite sennosides, NURSING HOME 35.2 MG/ML Oral Solution senna (SENOKO T) syrup 10 mL senna (SENOKOT) syrup 10 mL 01/23/2020 11:00:00 AM EDT 10 mL Oral aborted 10 mL, Oral, Daily Standard, First dose (after last modification) on Thu01/23/20 at 1100, For 30 days [facility] Medication administered onsite Docusate Sodium 10 MG/ML Oral Suspension docusate (COLACE) 50 MG/5ML liquid 100 mg docusate (COLACE) 50 MG/5ML liquid 100 mg 01/23/2020 09:30:00 AM EDT 100 mg Oral active 100 mg, Or al, 2 Times Daily, First dose on Thu01/23/20 at 0930, For 30 days [facility] Medication administered onsite Lactulose 667 MG/ML Oral Solution lactulose (CHRONULAC ) solution 60 mL lactulose (CHRONULAC) solution 60 mL 01/22/2020 10:00:00 AM EDT 60 mL Per G Tube completed 60 mL, Per G Tube, E very 2 hours, First dose (after last reorder) on Thu01/22/20 at 1000, For 2 doses [facility] Medication administered onsite Famotidine 20 MG Oral Tablet famotidine (PEPCID) table t 20 mg famotidine (PEPCID) tablet 20 mg 01/21/2020 08:46:26 PM EDT 20 mg Oral active 20 mg, Oral, 2 Times Daily PRN, heartburn, Starting 01/21/20 at 6, For 30 days [facility] Medication administered onsite Albuterol 0.833 MG/ML / Ipratropium Brom dawson 0.167 MG/ML Inhalant Solution ipratropium-albuterol (DUONEB) 0.5-2.5 (3) MG/3ML nebulizer solution 3 mL ipratropium-albuterol (DUONEB) 0.5-2.5 (3) MG/3ML nebulizer solution 3 mL 01/21/2020 04:00:00 PM EDT 3 mL Nebulization complete d 3 mL, Nebulization, Every 8 hours, First dose (after last modification) on 01/21/20 at 1600, For 9 doses
For Adults Q8 Hours is Hospital Standard, all orders will be changed to this unless KAE is selected 'Yes' below.
[facility] Medication administered onsite Lactulose 667 MG/ML Oral Solution lactulose (CHRONULAC ) solution 60 mL lactulose (CHRONULAC) solution 60 mL 01/21/2020 02:00:00 PM EDT 60 mL Per G Tube completed 60 mL, Per G Tube, E very 2 hours, First dose on 01/21/20 at 1400, For 2 doses [facility] Medication administered onsite sennosides, NURSING HOME 35.2 MG/ML Oral Solution senna (SENOKO T) syrup 10 mL senna (SENOKOT) syrup 10 mL 01/21/2020 01:45:00 PM EDT 10 mL Oral aborted 10 mL, Oral, Nightly, First dose on 01/21/20 at 1345, For 30 days [facility] Medication administered onsite Hydroxychloroquine Sulfate 200 MG Oral T ablet hydroxychloroquine (PLAQUENIL) tablet 200 mg hydroxychloroquine (PLAQUENIL) tablet 200 mg 0 11:30:00 AM EDT 200 mg Oral active 200 mg, Oral, Daily Standard, First dose on 01/21/20 at 1130, For 30 days [facility] Medication administered onsite Acetylcysteine 200 MG/ML Inhalant Soluti on acetylcysteine (MUCOMYST) 20 % inhalation solution 600 mg acetylcysteine (MUCOMYST) 20 % inhalatio n solution 600 mg 01/21/2020 11:00:00 AM EDT 600 mg Nebulization compl eted 600 mg, Nebulization, 2 Times Daily, First dose on 01/21/20 at 1100, For 7 doses [facility] Medication administered onsite Prednisone 5 MG Oral Tablet predniSONE (DELTASONE) tab let 5 mg predniSONE (DELTASONE) tablet 5 mg 01/20/2020 09:00:00 PM EDT 5 mg Oral active 5 mg, Oral, Every evening, First dose on 01/20/20 at 2100, For 30 days
Take with food.
[facility] Medication administered onsite Acetaminophen 32 MG/ML Oral Solution pati taminophen (TYLENOL) 160 MG/5ML solution (ADULT) 975 mg acetaminophen (TYLENOL) 160 MG/5ML solution (ADULT) 97 5 mg 01/19/2020 05:00:00 PM EDT 975 mg Per G Tube aborted 975 mg, Per G Tube, Three Times Daily Standard, First dose (after last modification) on Thu01/19/20 at 1700, For 30 days
Maximum dose of acetaminophen is 3,000 mg from all sources in 24 hours.
[facility] Medication administered onsite gabapentin 50 MG/ML Oral Solution gabape ntin (NEURONTIN) 300 MG/6ML oral solution 900 mg gabapentin (NEURONTIN) 300 MG/6ML oral solution 900 mg 01/19/2020 05:00:00 PM EDT 900 mg Per G Tube aborted 900 mg, Per G Tube, Three Times Daily Standard, First dose (after last modification) on Thu01/19/20 at 1700, For 30 days [facility] Medication administered onsite Prednisone 20 MG Oral Tablet predniSONE (DELTASONE) ta blet 10 mg predniSONE (DELTASONE) tablet 10 mg 01/18/2020 01:45:00 PM EDT 10 mg Oral aborted 10 mg, Oral, Daily Standard, First dose on Thu01/18/20 at 1345, For 30 days
Take with food.
[facility] Medication administered onsite Melatonin 5 MG Oral Tablet melatonin tablet 5 mg melatonin t ablet 5 mg 01/17/2020 09:00:00 PM EDT 5 mg Per G Tube aborted 5 mg, Per G Tube, Nightly, First dose (after last modification) on Thu01/17/20 at 2100, For 28 doses [facility] Medication administered onsite calcium polycarbophil 625 MG Oral Tablet polycarbophil (FIBERCON) tablet 625 mg polycarbophil (FIBERCON) tablet 625 mg 01/17/2020 09:00:00 PM EDT 625 mg Per G Tube aborted 625 mg, Per G Tube, 2 Times Daily, First dose (after last modification) on Thu01/17/20 at 2100, For 30 days [facility] Medication administered onsite Carboxymethylcellulose Sodium 5 MG/ML Op hthalmic Solution carboxymethylcellulose PF (REFRESH PLUS) 0.5 % ophthalmic solution 1 drop carboxymethylcellulose PF (REFRESH PLUS) 0.5 % ophthalmic solution 1 drop 01/17/2020 09:30:00 AM EDT 1 [drp] Both Eyes aborted 1 drop, Chin th Eyes, 2 Times Daily PRN, Dry Eyes, Starting Thu01/17/20 at 0930, For 720 hours [facility] Medication administered onsite Piperonyl Butoxide 40 MG/ML / Pyrethrins 3 MG/ML Topical Solution permethrin (NIX) 1 % external liquid permethrin (NIX) 1 % external liquid 01/16/2020 06:00:00 PM EDT Topical completed Topical, Once, Thu01/16/20 at 1800, For 1 dose
Shampoo and rinse hair, towel dry - apply permethrin to saturate hair and scalp. Rinse off after 10 min; repeat in 1 week if needed.
[facility] Medication administered onsite Hydroxyzine Hydrochloride 25 MG Oral Tablet hydrOXYzin e (ATARAX) tablet 25 mg hydrOXYzine (ATARAX) tablet 25 mg 01/11/2020 10:37:21 AM EDT 25 mg Oral active 25 mg, Oral, Every 6 hours PRN, Anxiety, Starting Thu01/11/20 at 1037, For 58 days 22 hours [facility] Medication administered onsite pantoprazole (PROTONIX) 2 mg/mL oral suspension 40 mg 01/11/2020 10:30:00 AM EDT 40 mg Per G Tube aborted 40 mg , Per G Tube, Before Breakfast, First dose on Thu01/11/20 at 1030, For 30 days [facility] Medication administered onsite meloxicam 7.5 MG Oral Tablet meloxicam (MOBIC) tablet 7.5 mg meloxicam (MOBIC) tablet 7.5 mg 01/09/2020 01:45:00 PM EDT 7.5 mg Oral acti ve 7.5 mg, Oral, Daily with Breakfast, First dose on Thu01/09/20 at 1345, For 59 doses [facility] Medication administered onsite sennosides, NURSING HOME 8.6 MG Oral Tablet senna tablet 2 tablet sen na tablet 2 tablet 01/09/2020 09:00:00 AM EDT 2 {tbl} Oral aborted 2 tablet, Oral, Daily Standard, First dose on Thu01/09/20 at 0900, For 30 days [facility] Medication administered onsite Diclofenac Sodium 0.01 MG/MG Topical Gel Diclofenac Sodium (VOLTAREN) 1 % gel 2 g Diclofenac Sodium (VOLTAREN) 1 % gel 2 g 01/06/2020 08:30:00 AM EDT 2 g Topical active 2 g, Topical, Four Times Daily-PRN, Pain, Starting Thu01/06/20 at 0830, For 59 days 3 hours
Apply to areas of pain, please include joints of hands
[facility] Medication administered onsite Bisacodyl 10 MG Rectal Suppository bisacodyl (DULCOLAX ) suppository 10 mg bisacodyl (DULCOLAX) suppository 10 mg 01/05/2020 05:00:00 PM EDT 10 mg Rectal aborted 10 mg, Rectal, Daily Standard, First dose (after last modification) on Thu01/05/20 at 1700, For 26 doses
With digital stimulation
[facility] Medication administered onsite gabapentin 50 MG/ML Oral Solution gabape ntin (NEURONTIN) 300 MG/6ML oral solution 900 mg gabapentin (NEURONTIN) 300 MG/6ML oral solution 900 mg 01/05/2020 05:00:00 PM EDT 900 mg Per G Tube aborted 900 mg, Per G Tube, Every 8 hours Standard (3 times per day), First dose (after last modification) on Thu01/05/20 at 1700, For 111 doses [facility] Medication administered onsite Nystatin 100 UNT/MG Topical Powder nystatin (MYCOSTATI N) powder nystatin (MYCOSTATIN) powder 01/03/2020 03:15:00 PM EDT Topical active Topical, 2 Times Daily, First dose (after last modification) on Thu01/03/20 at 1515, For 117 doses [facility] Medication administered onsite Sodium Chloride 0.111 MEQ/ML Nasal Solut ion sodium chloride (OCEAN) 0.65 % nasal spray 2 spray sodium chloride (OCEAN) 0.65 % nasal spray 2 spray 07/2019 02:00:00 PM EDT 2 {spray} Each Nare aborted 2 spray, Each Nare, Three Times Daily, First dose on Thu01/01/20 at 1400, For 30 days [facility] Medication administered onsite Carboxymethylcellulose Sodium 5 MG/ML Op hthalmic Solution carboxymethylcellulose PF (REFRESH PLUS) 0.5 % ophthalmic solution 1 drop carboxymethylcellulose PF (REFRESH PLUS) 0.5 % ophthalmic solution 1 drop 01/01/2020 10:45:00 AM EDT 1 [drp] Both Eyes aborted 1 drop, Chin th Eyes, 2 Times Daily, First dose (after last modification) on 01/01/20 at 1045, For 53 doses [facility] Medication administered onsite Carboxymethylcellulose Sodium 5 MG/ML Op hthalmic Solution carboxymethylcellulose PF (REFRESH PLUS) 0.5 % ophthalmic solution 1 drop carboxymethylcellulose PF (REFRESH PLUS) 0.5 % ophthalmic solution 1 drop 01/01/2020 10:35:40 AM EDT 1 [drp] Both Eyes aborted 1 drop, Chin th Eyes, 2 Times Daily PRN, Dry Eyes, Starting 01/01/20 at 1035, For 30 days [facility] Medication administered onsite Buprenorphine 2 MG / Naloxone 0.5 MG Ora l Strip buprenorphine-naloxone (SUBOXONE) 2-0.5 MG per sublingual film 1 Film buprenorphine-naloxone (SUBOXONE) 2-0.5 MG per sublingual film 1 Film 12/31/2019 09:00:00 PM EDT Sublingual completed 1 Film (2 mg of buprenorphine), Sublingual, 2 Times Daily, First dose (after last modification) on 12/31/19 at 2100, For [address] under tongue to dissolve- no eating or drinking for 15 minutes after administration.
[facility] Medication administered onsite sennosides, NURSING HOME 35.2 MG/ML Oral Solution senna (SENOKO T) syrup 10 mL senna (SENOKOT) syrup 10 mL 12/31/2019 12:00:00 PM EDT 10 mL Per G Tube aborted 10 mL, Per G Tube, Nightly, First dose (after last modification) on 12/31/19 at 1200, For 12 doses [facility] Medication administered onsite Acetaminophen 32 MG/ML Oral Solution pati taminophen (TYLENOL) 160 MG/5ML solution (ADULT) 975 mg acetaminophen (TYLENOL) 160 MG/5ML solution (ADULT) 97 5 mg 12/31/2019 10:00:00 AM EDT 975 mg Per G Tube aborted 975 mg, Per G Tube, Every 8 hours, First dose (after last modification) on 12/31/19 at 1000, For 85 doses
Maximum dose of acetaminophen is 3,000 mg from all sources in 24 hours.
[facility] Medication administered onsite Atenolol 25 MG Oral Tablet atenolol (TENORMIN) tablet 12.5 mg atenolol (TENORMIN) tablet 12.5 mg 12/28/2019 09:00:00 AM EDT 12.5 mg Oral active 12.5 mg, Oral, Daily Standa rd, First dose on Thu12/28/19 at 0900, For 59 doses
Check vital signs before administering
[facility] Medication administered onsite Guaifenesin 20 MG/ML Oral Solution guaiF ENesin (ROBITUSSIN) 100 MG/5ML solution 200 mg guaiFENesin (ROBITUSSIN) 100 MG/5ML solution 200 mg 08:59:00 AM EDT 200 mg Per G Tube aborted 200 m g, Per G Tube, Every 4 hours PRN, secretions, Starting Thu12/27/19 at 0859, For 51 days 4 hours [facility] Medication administered onsite 0.3 ML Enoxaparin sodium 100 MG/ML Prefi lled Syringe enoxaparin sodium (LOVENOX) injection 30 mg enoxaparin sodium (LOVENOX) injection 30 mg 12/26/2019 09:00:00 AM EDT 30 mg Subcutaneous completed 3 0 mg, Subcutaneous, Every 12 hours Standard (2 times per day), First dose (after last modification) on Thu12/26/19 at 0900, For 69 doses [facility] Medication administered onsite calcium polycarbophil 625 MG Oral Tablet polycarbophil (FIBERCON) tablet 625 mg polycarbophil (FIBERCON) tablet 625 mg 12/25/2019 09:00:00 AM EDT 625 mg Per G Tube aborted 625 mg, Per G Tube, Daily Standard, First dose on Thu12/25/19 at 0900, For 30 days [facility] Medication administered onsite Metoclopramide 10 MG Oral Tablet metoclopramide (ANSON N) tablet 5 mg metoclopramide (REGLAN) tablet 5 mg 12/24/2019 05:30:00 PM EDT 5 mg Oral aborted 5 mg, Oral, Before Meals - Three Times Daily, First dose (after last reorder) on Thu12/24/19 at 1730, For 119 doses [facility] Medication administered onsite Metoclopramide 10 MG Oral Tablet metoclopramide (ANSON N) tablet 5 mg metoclopramide (REGLAN) tablet 5 mg 12/23/2019 11:15:00 PM EDT 5 mg Oral completed 5 mg, Oral, Once, Thu12/23/19 at 2315, For 1 dose [facility] Medication administered onsite Ondansetron 4 MG Oral Tablet ondansetron (ZOFRAN) tabl et 4 mg ondansetron (ZOFRAN) tablet 4 mg 12/21/2019 11:15:00 PM EDT 4 mg Oral active 4 mg, Oral, Every 6 hours PRN, Nausea, Vomiting, Starting Thu12/21/19 at 2315, For 58 days 14 hours [facility] Medication administered onsite sennosides, NURSING HOME 35.2 MG/ML Oral Solution senna (SENOKO T) syrup 10 mL senna (SENOKOT) syrup 10 mL 12/21/2019 12:00:00 PM EDT 10 mL Per G Tube aborted 10 mL, Per G Tube, Nightly, First dose (after last modification) on Thu12/21/19 at 1200, For 12 doses [facility] Medication administered onsite lidocaine (LIDODERM) 5 % patch 1 patch [id number] 0 08:30:00 AM EDT 1 {patch} Transdermal active 1 patch, T ransdermal, Daily PRN, Pain, Starting Thu12/20/19 at 0830, For 88 days
Apply to back12 hours on - 12 hours off
[facility] Medication administered onsite Acetaminophen 32 MG/ML Oral Solution pati taminophen (TYLENOL) 160 MG/5ML solution (ADULT) 650 mg acetaminophen (TYLENOL) 160 MG/5ML solution (ADULT) 65 0 mg 12/20/2019 08:27:34 AM EDT 650 mg Per G Tube aborted 650 mg, Per G Tube, Every 6 hours PRN, Mild Pain (Pain Scale Score 1-3), Moderate Pain (Pain Scale Score 4-6), Starting Thu12/20/19 at 0827, For 414 hours
Maximum dose of acetaminophen is 3,000 mg from all sources in 24 hours.
[facility] Medication administered onsite Ondansetron 4 MG Oral Tablet ondansetron (ZOFRAN) tabl et 4 mg ondansetron (ZOFRAN) tablet 4 mg 12/19/2019 10:54:19 AM EDT 4 mg Oral aborted 4 mg, Oral, Every 8 hours PRN, Nausea, Vomiting, Starting 12/19/19 at 1054, For 30 days [facility] Medication administered onsite albuterol (PROVENTIL) nebulizer solution 2.5 mg [id number] 12/18/2019 12:46:33 PM EDT 2.5 mg Nebulization aborted 2.5 mg, Nebulization, Every 2 hours PRN, Wheezing, Shortness of Breath, Starting 12/18/19 at 1246, For 7 days 20 hours [facility] Medication administered onsite Buprenorphine 2 MG / Naloxone 0.5 MG Ora l Strip buprenorphine-naloxone (SUBOXONE) 2-0.5 MG per sublingual film 1 Film buprenorphine-naloxone (SUBOXONE) 2-0.5 MG per sublingual film 1 Film 12/17/2019 11:15:00 PM EDT Sublingual aborted 1 Film (2 mg of buprenorphine), Sublingual, 2 Times Daily, First dose (after last reorder) on 12/17/19 at 2315, For [address] tongue to dissolve- no eating or drinking for 15 minutes after administration.
[facility] Medication administered onsite Albuterol 0.833 MG/ML / Ipratropium Brom dawson 0.167 MG/ML Inhalant Solution ipratropium-albuterol (DUONEB) 0.5-2.5 (3) MG/3ML nebulizer solution 3 mL ipratropium-albuterol (DUONEB) 0.5-2.5 (3) MG/3ML nebulizer solution 3 mL 12/17/2019 11:24:24 AM EDT 3 mL Nebulization aborted 3 mL, Nebulization, Every 8 hours PRN, Wheezing, Shortness of Breath, Starting 12/17/19 at 1124, For 35 days
For Adults Q8 Hours is Hospital Standard, all orders will be changed to this unless KAE is selected 'Yes' below.
[facility] Medication administered onsite Bisacodyl 10 MG Rectal Suppository bisacodyl (DULCOLAX ) suppository 10 mg bisacodyl (DULCOLAX) suppository 10 mg 12/16/2019 06:00:00 PM EDT 10 mg Rectal aborted 10 mg, Rectal, Daily Standard, First dose on Thu12/16/19 at 1800, For 30 days
With digital stimulation
[facility] Medication administered onsite Methocarbamol 500 MG Oral Tablet methocarbamol (ROBAXI N) tablet 500 mg methocarbamol (ROBAXIN) tablet 500 mg 12/15/2019 05:00:00 PM EDT 500 mg Per G Tube aborted 500 mg, Per G Tube, Four Times Daily Standard, First dose (after last modification) on Alina 12/15/19 at 1700, For 236 doses [facility] Medication administered onsite duloxetine 60 MG Delayed Release Oral Ca psule DULoxetine (CYMBALTA) DR capsule 60 mg DULoxetine (CYMBALTA) DR capsule 60 mg 12/15/2019 09:00:00 AM EDT 60 mg Per G Tube aborted 60 mg, Per G T ube, Daily Standard, First dose (after last modification) on Alina 12/15/19 at 0900, For 88 doses
Do not crush or chew, however, capsules may be opened (as long as pellets are not crushed or damaged to alter the delayed release coating) and administer immediately after sprinkling over apple sauce or in apple juice or water.Contents of capsule can also be added to a plastic catheter tip syringe with 50 mL of water and shaken for 10 seconds before administering through a 12 [place] or larger nasogastric tube.
[facility] Medication administered onsite Buprenorphine 2 MG / Naloxone 0.5 MG Ora l Strip buprenorphine-naloxone (SUBOXONE) 2-0.5 MG per sublingual film 1 Film buprenorphine-naloxone (SUBOXONE) 2-0.5 MG per sublingual film 1 Film 12/14/2019 09:00:00 PM EDT Sublingual completed 1 Film (2 mg of buprenorphine), Sublingual, 2 Times Daily, First dose (after last modification) on Thu12/14/19 at 2100, For [address] under tongue to dissolve- no eating or drinking for 15 minutes after administration.
[facility] Medication administered onsite Clotrimazole 10 MG Oral Lozenge clotrimazole (MYCELEX) patsy 10 mg clotrimazole (MYCELEX) patsy 10 mg 12/14/2019 06:00:00 PM EDT 10 mg Oral aborted 10 mg, Oral, Five Times Daily Standard, First dose on Thu12/14/19 at 1800, For 30 days
Dissolve slowly in mouth
[facility] Medication administered onsite duloxetine 60 MG Delayed Release Oral Ca psule DULoxetine (CYMBALTA) DR capsule 60 mg DULoxetine (CYMBALTA) DR capsule 60 mg 12/14/2019 09:00:00 AM EDT 60 mg Per G Tube aborted 60 mg, Per G T ube, Daily Standard, First dose (after last modification) on Thu12/14/19 at 0900, For 2 doses
Do not crush or chew, however, capsules may be opened (as long as pellets are not crushed or damaged to alter the delayed release coating) and administer immediately after sprinkling over apple sauce or in apple juice or water.Contents of capsule can also be added to a plastic catheter tip syringe with 50 mL of water and shaken for 10 seconds before administering through a 12 [place] or larger nasogastric tube.
[facility] Medication administered onsite Atenolol 50 MG Oral Tablet atenolol (TENORMIN) tablet 25 mg atenolol (TENORMIN) tablet 25 mg 12/14/2019 09:00:00 AM EDT 25 mg Per G Tube a borted 25 mg, Per G Tube, Daily Standard, First dose (after last modification) on Thu12/14/19 at 0900, For 21 doses
Check vital signs before administering
[facility] Medication administered onsite Cephalexin 500 MG Oral Capsule cephALEXin (KEFLEX) cap gladis 500 mg cephALEXin (KEFLEX) capsule 500 mg 12/14/2019 08:45:00 AM EDT 500 mg Per G Tub e completed 500 mg, Per G Tube, Every 6 hours Standard (4 times per day), First dose (after last modification) on Thu12/14/19 at 0845, For 5 days [facility] Medication administered onsite lactated ringers bolus 1,000 mL [id number] 12/14/2019 01:00:00 AM EDT 1000 mL Intravenous completed 1,000 mL , Intravenous, Once, Thu12/14/19 at 0100, For 1 dose [facility] Medication administered onsite POLYETHYLENE GLYCOL 3350 142 MG/ML Oral Solution Polyethylene Glycol 3350 17 GM Oral Packet (MIRALAX) Polyethylene Glycol 3350 17 GM Oral Packet (MIRALAX) 12/14/2019 12:00:00 AM EDT 17 g Oral aborted Take 1 packet by mouth daily for 3 daysPlease substitute bottle for packets, if packets are unavailable. [facility] duloxetine 60 MG Delayed Release Oral Ca psule DULoxetine HCl 60 MG Oral Capsule Delayed Release Particles (CYMBALTA) DULoxetine HCl 60 MG Oral Capsule Delaye d Release Particles (CYMBALTA) 12/14/2019 12:00:00 AM EDT 60 mg Oral aborted Take 1 capsule by mouth daily [facility] Medication administered onsite Atenolol 25 MG Oral Tablet Atenolol 25 MG Oral Tablet (TENORMIN) Atenolol 25 MG Oral Tablet (TENORMIN) 12/14/2019 12:00:00 AM EDT 25 mg Per G Tube aborted 1 tablet by Per G Tube route [facility] Medication administered onsite Lisinopril 10 MG Oral Tablet Lisinopril 10 MG Oral Tab let (ZESTRIL) Lisinopril 10 MG Oral Tablet (ZESTRIL) 12/14/2019 12:00:00 AM EDT 10 mg Per G Tube aborted 1 tablet by Per G Tube route [facility] Medication administered onsite sennosides, NURSING HOME 35.2 MG/ML Oral Solution senna (SENOKO T) syrup 10 mL senna (SENOKOT) syrup 10 mL 12/13/2019 10:00:00 PM EDT 10 mL Per G Tube aborted 10 mL, Per G Tube, Nightly, First dose (after last modification) on Thu12/13/19 at 2200, For 20 doses [facility] Medication administered onsite Melatonin 5 MG Oral Tablet melatonin tablet 5 mg melatonin t ablet 5 mg 12/13/2019 10:00:00 PM EDT 5 mg Per G Tube aborted 5 mg, Per G Tube, Nightly, First dose (after last modification) on Thu12/13/19 at 2200, For 50 doses [facility] Medication administered onsite heparin sodium, porcine 10 UNT/ML Inject able Solution heparin lock flush 10 UNIT/ML injection 20 Units heparin lock flush 10 UNIT/ML injection 20 Units 12/13/2019 09:00:00 PM EDT 20 U Intracatheter active 20 Units, Intracatheter, Every 12 hours, First dose on Thu12/13/19 at 2100, For 175 doses
WHEN NOT IN USE - Verify blood return before use. Flush with 10 mL of Sodium Chloride 0.9 % and 2 mL Heparin 10 units/mL. Reference Policy CM C-34H Central Line Policy.
[facility] Medication administered onsite sodium chloride (preservative free) 0.9 % flush 10 mL [id number] 12/13/2019 09:00:00 PM EDT 10 mL Intravenous active 10 mL, Intravenous, Every 12 hours, First dose on Thu12/13/19 at 2100, For 175 doses
WHEN NOT IN USE - Verify blood return before use. Flush with 10 mL of Sodium Chloride 0.9 % and 2 mL Heparin 10 units/mL. Reference Policy CM C-[facility] Central Line Policy.
[facility] Medication administered onsite Buprenorphine 2 MG / Naloxone 0.5 MG Ora l Strip buprenorphine-naloxone (SUBOXONE) 2-0.5 MG per sublingual film 1 Film buprenorphine-naloxone (SUBOXONE) 2-0.5 MG per sublingual film 1 Film 12/13/2019 09:00:00 PM EDT Sublingual aborted 1 Film (2 mg of buprenorphine), Sublingual, 2 Times Daily, First dose (after last modification) on Thu12/13/19 at 2100, For [address] tongue to dissolve- no eating or drinking for 15 minutes after administration.
[facility] Medication administered onsite lidocaine (LIDODERM) 5 % patch 1 patch [id number] 0 09:00:00 PM EDT 1 {patch} Transdermal aborted 1 patch, T ransdermal, Every 24 hours, First dose (after last modification) on Thu12/13/19 at 2100, For 26 doses
Apply to back12 hours on - 12 hours off
[facility] Medication administered onsite 0.3 ML Enoxaparin sodium 100 MG/ML Prefi lled Syringe enoxaparin sodium (LOVENOX) injection 30 mg enoxaparin sodium (LOVENOX) injection 30 mg 12/13/2019 09:00:00 PM EDT 30 mg Subcutaneous aborted 30 mg, Subcutaneous, Every 12 hours Standard (2 times per day), First dose (after last modification) on Thu12/13/19 at 2100, For 29 doses [facility] Medication administered onsite Docusate Sodium 10 MG/ML Oral Suspension docusate (COLACE) 50 MG/5ML liquid 100 mg docusate (COLACE) 50 MG/5ML liquid 100 mg 12/13/2019 09:00:00 PM EDT 100 mg Per G Tube aborted 100 mg, P er G Tube, 2 Times Daily, First dose (after last modification) on Thu12/13/19 at 2100, For 43 doses [facility] Medication administered onsite heparin sodium, porcine 10 UNT/ML Inject able Solution heparin lock flush 10 UNIT/ML injection 20 Units heparin lock flush 10 UNIT/ML injection 20 Units 12/13/2019 07:02:02 PM EDT 20 U Intravenous active 20 Units, Intravenous, PRN, Line Care, Starting Thu12/13/19 at 1902, For 87 days 14 hours
Verify blood return before use. Flush with 10 mL of Sodium Chloride 0.9 % before and after infusions or blood sampling followed-by 2 mL Heparin 10 units/mL to lock. Reference Policy C-34 Central Line Policy.
[facility] Medication administered onsite sodium chloride (preservative free) 0.9 % flush 10 mL [id number] 12/13/2019 07:02:02 PM EDT 10 mL Intravenous active 10 mL, Intravenous, PRN, Line Care, Starting Thu12/13/19 at 1902, For 87 days 14 hours
Verify blood return before use. Flush with 10 mL of Sodium Chloride 0.9 % before and after infusions or blood sampling followed-by 2 mL Heparin 10 units/mL to lock. Reference Policy C-34H Central Line Policy.
[facility] Medication administered onsite Diclofenac Sodium 0.01 MG/MG Topical Gel Diclofenac Sodium (VOLTAREN) 1 % gel 2 g Diclofenac Sodium (VOLTAREN) 1 % gel 2 g 12/13/2019 05:00:00 PM EDT 2 g Topical aborted 2 g, Topical, Four Times Daily Standard, First dose (after last modification) on Thu12/13/19 at 1700, For 111 doses
Apply to areas of pain, please include joints of hands
[facility] Medication administered onsite gabapentin 50 MG/ML Oral Solution gabape ntin (NEURONTIN) 300 MG/6ML oral solution 600 mg gabapentin (NEURONTIN) 300 MG/6ML oral solution 600 mg 12/13/2019 05:00:00 PM EDT 600 mg Per G Tube aborted 600 mg, Per G Tube, Every 8 hours Standard (3 times per day), First dose (after last modification) on Thu12/13/19 at 1700, For 76 doses [facility] Medication administered onsite Methocarbamol 500 MG Oral Tablet methocarbamol (ROBAXI N) tablet 500 mg methocarbamol (ROBAXIN) tablet 500 mg 12/13/2019 05:00:00 PM EDT 500 mg Per G Tube aborted 500 mg, Per G Tube, Four Times Daily Standard, First dose (after last modification) on Thu12/13/19 at 1700, For 12 doses [facility] Medication administered onsite Carboxymethylcellulose Sodium 5 MG/ML Op hthalmic Solution carboxymethylcellulose PF (REFRESH PLUS) 0.5 % ophthalmic solution 1 drop carboxymethylcellulose PF (REFRESH PLUS) 0.5 % ophthalmic solution 1 drop 12/13/2019 03:10:18 PM EDT 1 [drp] Both Eyes aborted 1 drop, Chin th Eyes, Three Times Daily-PRN, Dry Eyes, Starting Thu12/13/19 at 1510, For 26 days [facility] Medication administered onsite Acetaminophen 32 MG/ML Oral Solution pati taminophen (TYLENOL) 160 MG/5ML solution (ADULT) 650 mg acetaminophen (TYLENOL) 160 MG/5ML solution (ADULT) 65 0 mg 12/13/2019 03:10:17 PM EDT 650 mg Per G Tube aborted 650 mg, Per G Tube, Every 6 hours PRN, Mild Pain (Pain Scale Score 1-3), Starting Thu12/13/19 at 1510, For 24 days
Maximum dose of acetaminophen is 3,000 mg from all sources in 24 hours.
[facility] Medication administered onsite sennosides, NURSING HOME 35.2 MG/ML Oral Solution Senna 176 MG/ 5ML Oral Syrup (SENOKOT) Senna 176 MG/5ML Oral Syrup (SENOKOT) 12/13/2019 12:00:00 AM EDT 10 m L Oral aborted Take 10 mLs by mouth [facility] Medication administered onsite Insulin Glargine 100 UNT/ML Injectable S olution Insulin Glargine 100 UNIT/ML Subcutaneous Solution (LANTUS) Insulin Glargine 100 UNIT/ML Subcutaneou s Solution (LANTUS) 12/13/2019 12:00:00 AM EDT 5 U Subcutaneous aborted Inject 5 Units into the skin [facility] Medication administered onsite Ibuprofen 20 MG/ML Oral Suspension Ibupr ofen 100 MG/5ML Oral Suspension (MOTRIN) Ibuprofen 100 MG/5ML Oral Suspension (MOTRIN) 12/13/2019 12:00:0 0 AM EDT 400 mg Oral aborted Take 20 mL s by mouth every 6 (six) hours as needed for Fever [facility] Medication administered onsite Lidocaine 5 % External Patch (LIDODERM) [id number] 12/13/19 12:00:00 AM EDT 1 {patch} Transdermal aborted Place 1 pa tch onto the skin every 24 (twenty-four) hours [facility] Medication administered onsite insulin lispro 100 UNIT/ML SC injection HIGH DOSE TUBE CONT INSULIN patients [id number] 12/13/2019 12:00:00 AM EDT U Subcutaneous aborted Patient Instructions: Please refer to Insulin Sliding Scale Instructions in the Discharge Instructions. [facility] Medication administered onsite Buprenorphine 2 MG / Naloxone 0.5 MG Ora l Strip Buprenorphine HCl-Naloxone HCl 2-0.5 MG Sublingual Film (SUBOXONE) Buprenorphine HCl-Naloxone HCl 2-0.5 MG Sublingual Film (SUBOXONE) 12/13/2019 12:00:00 AM EDT 1 {film} Sublin gual aborted Place 1 Film under t he tongue Two Times Daily , Max Daily Dose: 2 Film [facility] Medication administered onsite Diclofenac Sodium 0.01 MG/MG Topical Gel Diclofenac Sodium 1 % Transdermal Gel (VOLTAREN) Diclofenac Sodium 1 % Transdermal Gel (VOLTAREN) 12/12 12:00:00 AM EDT 2 g Topical aborted Apply 2 g topic ally Four times daily [facility] Medication administered onsite Carboxymethylcellulose Sodium 5 MG/ML Op hthalmic Solution Carboxymethylcellulose Sod PF 0.5 % Ophthalmic Solution (REFRESH PLUS) Carboxymethylcellulose Sod PF 0.5 % Ophthalmic Solution (REFRESH PLUS) 12/13/2019 12:00:00 AM EDT 1 [drp] Both Eyes aborted Place 1 drop i nto both eyes Three times daily as needed [facility] Medication administered onsite Methocarbamol 500 MG Oral Tablet Methocarbamol 500 MG Oral Tablet (ROBAXIN) Methocarbamol 500 MG Oral Tablet (ROBAXIN) 12/13/2019 12:00:00 AM EDT 500 mg Oral aborted Take 1 tablet by mali th Four times daily for 10 days [facility] Medication administered onsite Melatonin 5 MG Oral Tablet Melatonin 5 MG Oral Tablet 2019 12:00:00 AM EDT 5 mg Oral aborted Take 1 tablet by mouth nightly [facility] Medication administered onsite Bisacodyl 10 MG Rectal Suppository Bisac odyl 10 MG Rectal Suppository (DULCOLAX) Bisacodyl 10 MG Rectal Suppository (DULCOLAX) 12/13/2019 12:00:0 0 AM EDT [address] 1 garcia ppository rectally daily as needed for Constipation for up to 10 days [facility] Medication administered onsite Acetaminophen 32 MG/ML Oral Solution Pati taminophen 160 MG/5ML Oral Solution (TYLENOL) Acetaminophen 160 MG/5ML Oral Solution (TYLENOL) 12/12 12:00:00 AM EDT 650 mg Oral aborted Take 20 mLs by mouth every 6 (six) hours as needed for up to 10 days [facility] Medication administered onsite gabapentin 50 MG/ML Oral Solution Gabape ntin 250 MG/5ML Oral Solution (NEURONTIN) Gabapentin 250 MG/5ML Oral Solution (NEURONTIN) 2019 12:00:00 AM EDT 600 mg Oral aborted Take 12 mLs by m outh every 8 (eight) hours [facility] Medication administered onsite Buprenorphine 2 MG / Naloxone 0.5 MG Ora l Strip buprenorphine-naloxone (SUBOXONE) 2-0.5 MG per sublingual film 1 Film buprenorphine-naloxone (SUBOXONE) 2-0.5 MG per sublingual film 1 Film 12/12/2019 09:00:00 PM EDT Sublingual aborted 1 Film (2 mg of buprenorphine), Sublingual, 2 Times Daily, First dose (after last reorder) on Thu12/12/19 at 2100, For [address] under tongue to dissolve- no eating or drinking for 15 minutes after administration.
[facility] Medication administered onsite Buprenorphine 2 MG / Naloxone 0.5 MG Ora l Strip buprenorphine-naloxone (SUBOXONE) 2-0.5 MG per sublingual film 1 Film buprenorphine-naloxone (SUBOXONE) 2-0.5 MG per sublingual film 1 Film 12/12/2019 04:15:00 PM EDT Sublingual completed 1 Film (2 mg of buprenorphine), Sublingual, Once, Thu12/12/19 at 1615, For [address] under tongue to dissolve- no eating or drinking for 15 minutes after administration.
[facility] Medication administered onsite POLYETHYLENE GLYCOL 3350 142 MG/ML Oral Solution polyethylene glycol (MIRALAX) packet 17 g polyethylene glycol (MIRALAX) packet 17 g 12/12/2019 0 9:00:00 AM EDT 17 g Oral aborted 17 g, Or al, Daily Standard, First dose (after last reorder) on Thu12/12/19 at 0900, For 30 days
Mix in 8 ounces of water, juice or milk. Avoid use in patients who require thickened liquids due to potential increased risk for aspiration.
[facility] Medication administered onsite Insulin Glargine 100 UNT/ML Injectable S olution insulin glargine (LANTUS) injection 5 Units insulin glargine (LANTUS) injection 5 Units 12/11/2019 11:30:00 PM EDT 5 U Subcutaneous aborted 5 Units, Subcutaneous, Nightly, First dose (after last modification) on Thu12/11/19 at 2330, For 4 doses
For blood glucose less than 70 mg/dL: follow hypoglycemia protocol (CM H-09) and notify provider.For blood glucose values between 70 mg/dL and 100 mg/dL at bedtime: provide snack (15 grams of carbohydrates) with some protein. Administer FULL DOSE of insulin glargine (LANTUS) after snack.Record snack in I&O's. For blood glucose more than 400 mg/dL: notify provider
[facility] Medication administered onsite dextrose 50 % IV solution 50 mL [id number] 12/11/2019 11:21:53 PM E DT 50 mL Intravenous aborted 50 mL, Intrav enous, PRN, Low blood sugar, Starting 12/11/19 at 2321, For 30 days
Not for midline administration.
[facility] Medication administered onsite Insulin Glargine 100 UNT/ML Injectable S olution insulin glargine (LANTUS) injection 10 Units insulin glargine (LANTUS) injection 10 Units 0 05:15:00 AM EDT 10 U Subcutaneous active 10 Units, Subcutaneous, Once, 12/11/19 at 0515, For 1 dose
For blood glucose less than 70 mg/dL: follow hypoglycemia protocol ( ) and notify provider.For blood glucose values between 70 mg/dL and 100 mg/dL at bedtime: provide snack (15 grams of carbohydrates) with some protein. Administer FULL DOSE of insulin glargine (LANTUS) after snack.Record snack in I&O's. For blood glucose more than 400 mg/dL: notify provider
[facility] Medication administered onsite Melatonin 5 MG Oral Tablet melatonin tablet 5 mg melatonin t ablet 5 mg 12/09/2019 10:00:00 PM EDT 5 mg Oral aborted 5 mg, Oral, Nightly, First dose on Thu12/09/19 at 2200, For 30 days [facility] Medication administered onsite albuterol (PROVENTIL HFA) inhaler 2 puff [id number] 12/09/2019 04:56:48 AM EDT 2 {puff} Inhalation completed 2 puff, Inhalation, Every 6 hours PRN, Wheezing, Starting Thu12/09/19 at 0456, For 4 days
Contact cautionShake the inhaler well before each spray.
[facility] Medication administered onsite Melatonin 5 MG Oral Tablet melatonin tablet 5 mg melatonin t ablet 5 mg 12/09/2019 01:15:00 AM EDT 5 mg Per G Tube completed 5 mg, Per G Tube, Nightly, First dose (after last modification) on Thu12/09/19 at 0115, For 1 dose [facility] Medication administered onsite Oxycodone Hydrochloride 5 MG Oral Tablet oxyCODONE (ROXICODONE) immediate release tablet 5 mg oxyCODONE (ROXICODONE) immediate release tablet 5 mg 12/08/2019 07:00:00 AM EDT 5 mg Oral completed 5 mg, Oral, Once, Alina 12/08/19 at 0700, For 1 dose
Oxycodone immediate release is limited to 10 mg per dose. Higher doses ( only) require Pain Service consultation and approval.
[facility] Medication administered onsite Ibuprofen 20 MG/ML Oral Suspension ibupr ofen (MOTRIN) 100 MG/5ML suspension 400 mg ibuprofen (MOTRIN) 100 MG/5ML suspension 400 mg 12/07/2019 07:48 :50 PM EDT 400 mg Oral aborted 400 mg, Or al, Every 6 hours PRN, Fever, Starting Thu12/07/19 at 1948, For 30 days [facility] Medication administered onsite Acetaminophen 32 MG/ML Oral Solution pati taminophen (TYLENOL) 160 MG/5ML solution (ADULT) 650 mg acetaminophen (TYLENOL) 160 MG/5ML solution (ADULT) 65 0 mg 12/07/2019 07:48:32 PM EDT 650 mg Oral aborted 650 mg, Oral, Every 6 hours PRN, Mild Pain (Pain Scale Score 1-3), Starting Thu12/07/19 at 1948, For 30 days
Maximum dose of acetaminophen is 3,000 mg from all sources in 24 hours.
[facility] Medication administered onsite Acetaminophen 10 MG/ML Injectable Soluti on acetaminophen (OFIRMEV) infusion 1,000 mg acetaminophen (OFIRMEV) infusion 1,000 mg 12/07/2019 06:10:46 AM EDT 1000 mg Intravenous aborted 1,000 mg , Intravenous, Administer over 15 Minutes, Every 8 hours PRN, Fever, Starting Thu12/07/19 at 0610, For 1 day
Maximum dose 3 gm daily from all sources
[facility] Medication administered onsite 1 ML Ketorolac Tromethamine 15 MG/ML Car tridge ketorolac (TORADOL) 15 MG/ML injection 15 mg ketorolac (TORADOL) 15 MG/ML injection 15 mg 0 04:30:00 AM EDT 15 mg Intravenous completed 15 mg, Intravenous, Once, Thu12/07/19 at 0430, For 1 dose [facility] Medication administered onsite 1 ML Ketorolac Tromethamine 15 MG/ML Car tridge ketorolac (TORADOL) 15 MG/ML injection 15 mg ketorolac (TORADOL) 15 MG/ML injection 15 mg 0 10:30:00 PM EDT 15 mg Intravenous completed 15 mg, Intravenous, Once, Thu12/06/19 at 2230, For 1 dose [facility] Medication administered onsite dextrose 5 %-0.9 % sodium chloride infusion [id number] 12/06/2019 03:30:00 PM EDT Intravenous aborted at 1 00 mL/hr, Intravenous, Continuous, Starting Thu12/06/19 at 1530, For 30 days [facility] Medication administered onsite 1 ML Ketorolac Tromethamine 15 MG/ML Car tridge ketorolac (TORADOL) 15 MG/ML injection 15 mg ketorolac (TORADOL) 15 MG/ML injection 15 mg 0 03:00:00 PM EDT 15 mg Intravenous completed 15 mg, Intravenous, Once, Thu12/06/19 at 1500, For 1 dose [facility] Medication administered onsite Acetaminophen 325 MG / butalbital 50 MG / Caffeine 40 MG Oral Tablet dsvdekikwp-fbkpmpvaogklx-xyrwokof (FIORICET) per tablet 1 tablet qyqxkzsdah-mxfaovenqtczu-bgugcdyl (FIORICET) per tablet 1 tablet 12/06/2019 07:45:00 AM EDT 1 {tbl} Oral completed 1 tablet, Oral, Once, Thu12/06/19 at 0745, For 1 dose
Maximum daily dose of acetaminophen is 3,000 mg from all sources in 24 hours.
[facility] Medication administered onsite 1 ML Ketorolac Tromethamine 15 MG/ML Car tridge ketorolac (TORADOL) 15 MG/ML injection 15 mg ketorolac (TORADOL) 15 MG/ML injection 15 mg 0 08:15:00 PM EDT 15 mg Intravenous completed 15 mg, Intravenous, Once, Thu12/05/19 at 2015, For 1 dose [facility] Medication administered onsite 1 ML Ketorolac Tromethamine 15 MG/ML Car tridge ketorolac (TORADOL) 15 MG/ML injection 15 mg ketorolac (TORADOL) 15 MG/ML injection 15 mg 0 07:30:00 AM EDT 15 mg Intravenous completed 15 mg, Intravenous, Once, Thu12/05/19 at 0730, For 1 dose [facility] Medication administered onsite 0.5 ML Sumatriptan 12 MG/ML Injection GARCIA MAtriptan succinate (IMITREX) injection 6 mg SUMAtriptan succinate (IMITREX) injection 6 mg 12/05/2019 04 :30:00 AM EDT 6 mg Subcutaneous completed 6 mg, Sub cutaneous, Once, Thu12/05/19 at 0430, For 1 dose [facility] Medication administered onsite sennosides, NURSING HOME 35.2 MG/ML Oral Solution senna (SENOKO T) syrup 10 mL senna (SENOKOT) syrup 10 mL 12/03/2019 10:00:00 PM EDT 10 mL Oral aborted 10 mL, Oral, Nightly, First dose (after last modification) on 12/03/19 at 2200, For 30 doses [facility] Medication administered onsite sodium chloride (preservative free) 0.9 % flush 10 mL 12/03/2019 01:48:55 PM EDT 10 mL Intravenous aborted [Ord er 1 Start] Name: sodium chloride (preservative free) 0.9 % flush 10 mL Signed Summary: 10 mL, Intravenous, PRN, Line Care, Starting 12/03/19 at 1348, For 714 hours
Verify blood return before use. Flush with 10 mL of Sodium Chloride 0.9 % before and after infusions or blood sampling followed-by 2 mL Heparin 10 units/mL to lock. Reference Policy CM C-34H Central Line Policy.
[Order 1 End] [Order 2 Start] Name: heparin lock flush 10 UNIT/ML injection 20 Units Signed Summary: 20 Units, Intravenous, Every 12 hours, First dose (after last modification) on 12/03/19 at 2100, For 42 doses
WHEN NOT IN USE - Verify blood return before use. Flush with 10 mL of Sodium Chloride 0.9 % and 2 mL Heparin 10 units/mL.Reference Policy CM C- 34H Central Line Policy.
[Order 2 End] [facility] Medication administered onsite Ibuprofen 20 MG/ML Oral Suspension ibupr ofen (MOTRIN) 100 MG/5ML suspension 400 mg ibuprofen (MOTRIN) 100 MG/5ML suspension 400 mg 12/03/2019 08:27 :27 AM EDT 400 mg Oral aborted 400 mg, Or al, Every 8 hours PRN, Fever, Starting 12/03/19 at 0827, For 30 days [facility] Medication administered onsite dextrose 50 % IV solution 25 mL [id number] 12/03/2019 12:42:24 AM E DT 25 mL Intravenous aborted 25 mL, Intrav enous, PRN, Low blood sugar, Starting 12/03/19 at 0042, For 30 days
Not for midline administration.
[facility] Medication administered onsite phenol 14 MG/ML Mouthwash phenol (CHLORASEPTIC) 1.4 % liquid 3 spray phenol (CHLORASEPTIC) 1.4 % liquid 3 spray 12/02/2019 07:33:23 PM EDT 3 {spray} Mouth/Throat aborted 3 spray, Mali th/Throat, Every 4 hours PRN, Sore Throat, Starting Thu12/02/19 at 1933, For 30 days [facility] Medication administered onsite Ibuprofen 20 MG/ML Oral Suspension ibupr ofen (MOTRIN) 100 MG/5ML suspension 400 mg ibuprofen (MOTRIN) 100 MG/5ML suspension 400 mg 12/02/2019 02:45 :00 AM EDT 400 mg Oral completed 400 mg, Or al, Once, Thu12/02/19 at 0245, For 1 dose [facility] Medication administered onsite ondansetron (ZOFRAN) injection 4 mg [id number] 11/30/2019 12:25:5 4 PM EDT 4 mg Intravenous aborted 4 mg, In travenous, Every 8 hours PRN, Nausea, Vomiting, Starting Thu11/30/19 at 1225, For 13 days 3 hours [facility] Medication administered onsite Albuterol 1 MG/ML Inhalant Solution albu terol (PROVENTIL) CONTINUOUS nebulizer solution 0.5 % albuterol (PROVENTIL) CONTINUOUS neb ulizer solution 0.5 % 11/30/2019 11:00:00 AM EDT 5 mg/h Nebulization compl eted 5 mg/hr (1 mL/hr), Nebulization, at 1 mL/hr, Once, Thu11/30/19 at 1100, For 1 dose, Recovery [facility] Medication administered onsite fentaNYL (SUBLIMAZE) (PF) injection 12.5 mcg [id number] 11/30/2019 10:48:32 AM EDT 12.5 ug Intravenous aborted 12.5 mcg, Intravenous, Every 5 min PRN, Moderate Pain (Pain Scale Score 4-6), Starting Thu11/30/19 at 1048, For 10 doses, Recovery [facility] Medication administered onsite dextrose 5 % and sodium chloride 0.45 % infusion [id number] 11/30/2019 12:00:00 AM EDT Intravenous aborted at 100 mL/hr, Intravenous, Continuous, Starting Thu11/30/19 at 0000, For 30 days [facility] Medication administered onsite Piperonyl Butoxide 40 MG/ML / Pyrethrins 3 MG/ML Topical Solution permethrin (NIX) 1 % external liquid permethrin (NIX) 1 % external liquid 11/28/2019 11:30:00 AM EDT Topical completed Topical, Once, Thu11/28/19 at 1130, For 1 dose
Shampoo and rinse hair, towel dry - apply permethrin to saturate hair and scalp. Rinse off after 10 min; repeat in 1 week if needed.
[facility] Medication administered onsite dexamethasone (DECADRON) injection 10 mg [id number] 11/27/2019 09:00:00 AM EDT 10 mg Intravenous completed 10 mg, Intravenous, Every 8 hours, First dose (after last reorder) on 11/27/19 at 0900, For 5 doses [facility] Medication administered onsite Nystatin [id number] UNT/ML Oral Suspension n ystatin (MYCOSTATIN) 271471 UNIT/ML suspension 500,000 Units nystatin (MYCOSTATIN) [id number] UNIT/ML jeferson pension 500,000 Units 11/26/2019 09:00:00 AM EDT 232227 U Oral aborted 500,000 Units, Oral, Four Times Daily Standard, First dose on 11/26/19 at 0900, For 7 days
Swish and spit
[facility] Medication administered onsite dexamethasone (DECADRON) injection 10 mg [id number] 11/25/2019 07:00:00 PM EDT 10 mg Intravenous completed 10 mg, Intravenous, Every 8 hours, First dose on Thu11/25/19 at 1900, For 5 doses [facility] Medication administered onsite dexamethasone sodium phosphate (DECADRON) 10 MG/ML PF injection 10 mg [id number] 11/25/2019 10:34:03 AM EDT 10 mg Intravenous aborted 10 mg, Intravenous, Every 8 hours, First dose (after last modification) on Thu11/25/19 at 1045, For 5 doses [facility] Medication administered onsite Albuterol 0.833 MG/ML / Ipratropium Brom dawson 0.167 MG/ML Inhalant Solution ipratropium-albuterol (DUONEB) 0.5-2.5 (3) MG/3ML nebulizer solution 3 mL ipratropium-albuterol (DUONEB) 0.5-2.5 (3) MG/3ML nebulizer solution 3 mL 11/25/2019 07:45:00 AM EDT 3 mL Nebulization complete d 3 mL, Nebulization, Every 8 hours, First dose on Thu11/25/19 at 0745, For 19 doses
For Adults Q8 Hours is Hospital Standard, all orders will be changed to this unless KAE is selected 'Yes' below.
[facility] Medication administered onsite gabapentin 50 MG/ML Oral Solution gabape ntin (NEURONTIN) 250 MG/5ML solution 600 mg gabapentin (NEURONTIN) 250 MG/5ML solution 600 mg 11/24/2019 01:00:00 AM EDT 600 mg Oral aborted 600 mg, Oral, Ev ryan 8 hours Standard (3 times per day), First dose (after last modification) on Alina 11/24/19 at 0100, For 87 doses [facility] Medication administered onsite gabapentin 50 MG/ML Oral Solution gabape ntin (NEURONTIN) 250 MG/5ML solution 400 mg gabapentin (NEURONTIN) 250 MG/5ML solution 400 mg 11/23/2019 09:00:00 AM EDT 400 mg Oral aborted 400 mg, Oral, Ev ryan 8 hours Standard (3 times per day), First dose (after last modification) on Thu11/23/19 at 0900, For 33 doses [facility] Medication administered onsite Nystatin 100 UNT/MG Topical Powder nystatin (MYCOSTATI N) powder nystatin (MYCOSTATIN) powder 11/20/2019 09:00:00 PM EDT Topical completed Topical, 2 Times Daily, First dose (after last reorder) on 11/20/19 at 2100, For 5 days [facility] Medication administered onsite furosemide (LASIX) injection 20 mg [id number] 11/20/2019 10:00:00 AM EDT 20 mg Intravenous completed 20 mg, I ntravenous, Once, Thu11/20/19 at 1000, For 1 dose [facility] Medication administered onsite 0.3 ML Enoxaparin sodium 100 MG/ML Prefi lled Syringe enoxaparin sodium (LOVENOX) injection 30 mg enoxaparin sodium (LOVENOX) injection 30 mg 11/18/2019 09:00:00 PM EDT 30 mg Subcutaneous aborted 30 mg, Subcutaneous, Every 12 hours Standard (2 times per day), First dose on Thu11/18/19 at 2100, For 64 doses [facility] Medication administered onsite ondansetron (ZOFRAN) injection 4 mg [id number] 11/18/2019 02:10:4 2 PM EDT 4 mg Intravenous completed 4 mg, In travenous, Every 8 hours PRN, Nausea, Vomiting, Starting Thu11/18/19 at 1410, For 11 days 17 hours [facility] Medication administered onsite Methocarbamol 500 MG Oral Tablet methocarbamol (ROBAXI N) tablet 500 mg methocarbamol (ROBAXIN) tablet 500 mg 11/16/2019 05:00:00 PM EDT 50 0 mg Oral aborted 500 mg, Oral, F our Times Daily Standard, First dose on Thu11/16/19 at 1700, For 30 days [facility] Medication administered onsite 50 ML Magnesium Sulfate 40 MG/ML Injecti on magnesium sulfate infusion 2 g/50 mL (premix) magnesium sulfate infusion 2 g/50 mL (premix) 11/16/19 03:21:18 PM EDT 16 meq Intravenous aborted 16 m Eq, Intravenous, Every 1 hour PRN, for serum magnesium < 2 mEq/L, Starting Thu11/16/19 at 1521, For 10 days 16 hours
Serum Magnesium 1.6 - 1.9: give 16 mEq (2 g) q1h x 2 Serum Magnesium 1.5 and less: give 16 mEq (2 g) q1h x 3 *For ICU Stay only, discontinue on transfer*
[facility] Medication administered onsite pantoprazole 4 MG/ML Injectable Solution pantoprazole (PROTONIX) injection 40 mg pantoprazole (PROTONIX) injection 40 mg 11/16/2019 11:45:00 AM EDT 40 mg Intravenous aborted 40 mg, Intrav enous, Daily Standard, First dose on Thu11/16/19 at 1145, For 30 days [facility] Medication administered onsite duloxetine 60 MG Delayed Release Oral Ca psule DULoxetine (CYMBALTA) DR capsule 60 mg DULoxetine (CYMBALTA) DR capsule 60 mg 11/16/2019 09:00:00 AM EDT 60 mg Oral aborted 60 mg, Oral, D aily Standard, First dose on Thu11/16/19 at 0900, For 30 days
Do not crush or chew, however, capsules may be opened (as long as pellets are not crushed or damaged to alter the delayed release coating) and administer immediately after sprinkling over apple sauce or in apple juice or water.

Contents of capsule can also be added to a plastic catheter tip syringe with 50 mL of water and shaken for 10 seconds before administering through a 12 [place] or larger nasogastric tube.
[facility] Medication administered onsite morphine sulfate (PF) injection 2 mg [id number] 11/16/2019 06:22: 04 AM EDT 2 mg Intravenous aborted 2 mg, In travenous, Every 2 hours PRN, breakthrough pain, Starting Thu11/16/19 at 0622, For 3 days [facility] Medication administered onsite lactated ringers bolus 1,000 mL [id number] 11/16/2019 12:45:00 AM EDT 1000 mL Intravenous completed 1,000 mL , Intravenous, Once, Thu11/16/19 at 0045, For 1 dose [facility] Medication administered onsite Insulin Glargine 100 UNT/ML Injectable S olution insulin glargine (LANTUS) injection 10 Units insulin glargine (LANTUS) injection 10 Units 0 10:00:00 PM EDT 10 U Subcutaneous aborted 10 Units, Subcutaneous, Nightly, First dose on Thu11/15/19 at 2200, For 30 days
For blood glucose less than 70 mg/dL: follow hypoglycemia protocol ( ) and notify provider.For blood glucose values between 70 mg/dL and 100 mg/dL at bedtime: provide snack (15 grams of carbohydrates) with some protein. Administer FULL DOSE of insulin glargine (LANTUS) after snack.Record snack in I&O's. For blood glucose more than 400 mg/dL: notify provider
[facility] Medication administered onsite Lactulose 667 MG/ML Oral Solution lactulose (CHRONULAC ) solution 30 mL lactulose (CHRONULAC) solution 30 mL 11/14/2019 05:00:00 PM EDT 30 mL Oral aborted 30 mL, Oral, Three Times Da maryana Standard, First dose on Thu11/14/19 at 1700, For 30 days [facility] Medication administered onsite Acetaminophen 32 MG/ML Oral Solution pati taminophen (TYLENOL) 160 MG/5ML solution (ADULT) 650 mg acetaminophen (TYLENOL) 160 MG/5ML solution (ADULT) 65 0 mg 11/14/2019 05:00:00 PM EDT 650 mg Oral aborted 650 mg, Oral, Every 6 hours, First dose on Thu11/14/19 at 1700, For 30 days
Maximum dose of acetaminophen is 3,000 mg from all sources in 24 hours.
[facility] Medication administered onsite tizanidine 4 MG Oral Tablet tizanidine (ZANAFLEX) tabl et 4 mg tizanidine (ZANAFLEX) tablet 4 mg 11/14/2019 12:00:00 PM EDT 4 mg Oral aborted 4 mg, Oral, Every 6 hours, First dose (after last modification) on Thu11/14/19 at 1200, For 7 days [facility] Medication administered onsite morphine sulfate (PF) injection 2 mg [id number] 11/14/2019 11:49: 00 AM EDT 2 mg Intravenous aborted 2 mg, In travenous, Every 2 hours PRN, breakthrough pain, Starting 11/14/19 at 1149, For 3 days [facility] Medication administered onsite NaCl infusion 0.9 % [id number] 11/13/2019 07:15:00 PM EDT Intravenous aborted at 30 mL/hr, Intrave nous, Continuous, Starting 11/13/19 at 1915, For 30 days
KVO
[facility] Medication administered onsite 2 ML Metoclopramide 5 MG/ML Prefilled Sy ringe metoclopramide (REGLAN) injection 10 mg metoclopramide (REGLAN) injection 10 mg 11/13/2019 09:45:00 AM E DT 10 mg Intravenous completed 10 mg, I ntravenous, Once, 11/13/19 at 0945, For 1 dose [facility] Medication administered onsite POLYETHYLENE GLYCOL 3350 142 MG/ML Oral Solution polyethylene glycol (MIRALAX) packet 17 g polyethylene glycol (MIRALAX) packet 17 g 11/13/2019 0 8:45:00 AM EDT 17 g Oral completed 17 g, Oral, Daily Standard, First dose on 11/13/19 at 0845, For 30 days
Mix in 8 ounces of water, juice or milk. Avoid use in patients who require thickened liquids due to potential increased risk for aspiration.
[facility] Medication administered onsite NaCl infusion 0.9 % [id number] 11/13/2019 07:30:00 AM EDT Intravenous aborted at 50 mL/hr, Intrave nous, Continuous, Starting 11/13/19 at 0730, For 12 hours [facility] Medication administered onsite NaCl infusion 0.9 % [id number] 11/12/2019 07:30:00 PM EDT Intravenous completed at 50 mL/hr, Intrave nous, Continuous, Starting 11/12/19 at 1930, For 12 hours [facility] Medication administered onsite Hydralazine Hydrochloride 20 MG/ML Injec table Solution hydrALAZINE (APRESOLINE) injection 10 mg hydrALAZINE (APRESOLINE) injection 10 mg 11/12/2019 05 :39:47 PM EDT 10 mg Intravenous aborted 10 m g, Intravenous, Every 6 hours PRN, Other, Starting 11/12/19 at 1739, For 5 days
Dilute in 25-50 ml normal saline. Administer over 30 minutes.
[facility] Medication administered onsite dexamethasone (DECADRON) injection 8 mg [id number] 11/12/19 03:00:00 PM EDT 8 mg Intravenous completed 8 mg, Intr avenous, Every 8 hours, First dose (after last reorder) on 11/12/19 at 1500, For 5 doses [facility] Medication administered onsite morphine sulfate (PF) injection 2 mg [id number] 11/12/2019 08:50: 16 AM EDT 2 mg Intravenous aborted 2 mg, In travenous, Every 2 hours PRN, Severe Pain (Pain Scale Score 7-10), Starting 11/12/19 at 0850, For 3 days [facility] Medication administered onsite NaCl infusion 0.9 % [id number] 11/12/2019 07:15:00 AM EDT Intravenous completed at 50 mL/hr, Intrave nous, Continuous, Starting 11/12/19 at 0715, For 12 hours [facility] Medication administered onsite dexamethasone (DECADRON) injection 8 mg [id number] 11/12/19 07:15:00 AM EDT 8 mg Intravenous completed 8 mg, Intr avenous, Once, 11/12/19 at 0715, For 1 dose [facility] Medication administered onsite fentaNYL (SUBLIMAZE) (PF) injection 25 mcg [id number] 11/12/2019 07:04:00 AM EDT 25 ug Intravenous aborted 25 m cg, Intravenous, Every 2 hours PRN, Severe Pain (Pain Scale Score 7-10), Starting 11/12/19 at 0704, For 3 days [facility] Medication administered onsite Albuterol 0.833 MG/ML / Ipratropium Brom dawson 0.167 MG/ML Inhalant Solution ipratropium-albuterol (DUONEB) 0.5-2.5 (3) MG/3ML nebulizer solution 3 mL ipratropium-albuterol (DUONEB) 0.5-2.5 (3) MG/3ML nebulizer solution 3 mL 11/12/2019 12:00:00 AM EDT 3 mL Nebulization complete d 3 mL, Nebulization, Every 8 hours, First dose on Thu11/12/19 at 0000, For 19 doses
For Adults Q8 Hours is Hospital Standard, all orders will be changed to this unless KAE is selected 'Yes' below.
[facility] Medication administered onsite Acetaminophen 10 MG/ML Injectable Soluti on acetaminophen (OFIRMEV) infusion 1,000 mg acetaminophen (OFIRMEV) infusion 1,000 mg 11/11/2019 11:30:51 PM EDT 1000 mg Intravenous aborted 1,000 mg , Intravenous, Administer over 15 Minutes, Every 8 hours, First dose (after last modification) on Thu11/11/19 at 2345, For 10 doses
Maximum dose 3 gm daily from all sources
[facility] Medication administered onsite Diclofenac Sodium 0.01 MG/MG Topical Gel Diclofenac Sodium (VOLTAREN) 1 % gel 2 g Diclofenac Sodium (VOLTAREN) 1 % gel 2 g 11/11/2019 09:15:00 PM EDT 2 g Topical aborted 2 g, Topical, Four Times Daily Standard, First dose (after last modification) on Thu11/11/19 at 2115, For 238 doses
Apply to area of pain
[facility] Medication administered onsite lidocaine (LIDODERM) 5 % patch 1 patch [id number] 0 09:00:00 PM EDT 1 {patch} Transdermal aborted 1 patch, T ransdermal, Every 24 hours, First dose on Thu11/11/19 at 2100, For 58 doses
Apply to back12 hours on - 12 hours off
[facility] Medication administered onsite NaCl infusion 0.9 % [id number] 11/11/2019 07:00:00 PM EDT Intravenous completed at 50 mL/hr, Intrave nous, Continuous, Starting Thu11/11/19 at 1900, For 12 hours [facility] Medication administered onsite Racepinephrine 22.5 MG/ML Inhalant Solut ion racepinephrine HCl (VAPONEPHRINE) 2.25 % inhalation 0.5 mL racepinephrine HCl (VAPONEPHRINE) 2.25 % inhalation 0.5 mL 11/11/2019 03:30:00 PM EDT 0.5 mL Inhalation complet ed 0.5 mL, Inhalation, Once RT, Thu11/11/19 at 1530, For 1 dose [facility] Medication administered onsite 1 ML Ketorolac Tromethamine 15 MG/ML Car tridge ketorolac (TORADOL) 15 MG/ML injection 15 mg ketorolac (TORADOL) 15 MG/ML injection 15 mg 0 03:30:00 PM EDT 15 mg Intravenous completed 15 mg, Intravenous, Once, Thu11/11/19 at 1530, For 1 dose [facility] Medication administered onsite Acetaminophen 10 MG/ML Injectable Soluti on acetaminophen (OFIRMEV) infusion 1,000 mg acetaminophen (OFIRMEV) infusion 1,000 mg 11/11/2019 03:21:45 PM EDT 1000 mg Intravenous aborted 1,000 mg , Intravenous, Administer over 15 Minutes, Every 8 hours PRN, Fever, Starting Thu11/11/19 at 1521, For 1 day
Maximum dose 3 gm daily from all sources
[facility] Medication administered onsite fentaNYL (SUBLIMAZE) (PF) injection 50 mcg [id number] 11/11/2019 02:15:00 PM EDT 50 ug Intravenous completed 50 mcg, Intravenous, Once, Thu11/11/19 at 1415, For 1 dose [facility] Medication administered onsite dexmedetomidine (PRECEDEX) in NaCl 0.9 % infusion 4 mcg/mL 1 [id number] 11/11/2019 12:00:00 PM EDT Intravenous aborted 0.1-1.5 mcg/kg/hr 120.6 kg (3.015-45.225 mL/hr, rounded to 3-45.2 mL/hr), Intravenous, at 3-45.2 mL/hr, Continuous, Starting Thu11/11/19 at 1200, For 30 days
Starting dose = 0.2 mcg/kg/hrTitrate to maintain RASS of 0 Titrate by 0.1-0.2 mcg/kg/hrMax Dose = 1.5 mcg/kg/hr Titrate down if RASS of -1
[facility] Medication administered onsite Albuterol 0.83 MG/ML Inhalant Solution a lbuterol (PROVENTIL) nebulizer solution 2.5 mg albuterol (PROVENTIL) nebulizer solution 2.5 mg 2019 11:30:00 AM EDT 2.5 mg Nebulization aborted 2.5 mg, Nebulization, Every 8 hours, First dose on Thu11/11/19 at 1130, For 4 days
For Adults Q8 Hours is Hospital Standard, all orders will be changed to this unless KAE is selected 'Yes' below .
[facility] Medication administered onsite albuterol (PROVENTIL) nebulizer solution 2.5 mg [id number] 11/11/2019 11:26:24 AM EDT 2.5 mg Nebulization completed 2 .5 mg, Nebulization, Every 2 hours PRN, Wheezing, Shortness of Breath, Starting Thu11/11/19 at 1126, For 6 days 19 hours [facility] Medication administered onsite duloxetine 30 MG Delayed Release Oral Ca psule DULoxetine (CYMBALTA) DR capsule 30 mg DULoxetine (CYMBALTA) DR capsule 30 mg 11/11/2019 09:00:00 AM EDT 30 mg Per NG tube aborted 30 mg, Per NG tube, Daily Standard, First dose (after last modification) on Thu11/11/19 at 0900, For 5 doses
Do not crush or chew. Contents of capsule can be added to a plastic catheter tip syringe with 50 mL of water and gently shaken for 10 seconds before administering through a 12 [place] or larger nasogastric tube. Ensure no pellets are left in the syringe; if present, rinse syringe with an additional 15 mL of water.
[facility] Medication administered onsite alteplase (CATHFLO) injection 2 mg [id number] 11/11/2019 05:45:00 AM EDT 2 mg Intracatheter completed 2 mg, Intra catheter, Once, Thu11/11/19 at 0545, For 1 dose
To be instilled by PICC team or IR nurse only for at least 30 minutes
[facility] Medication administered onsite furosemide (LASIX) injection 40 mg [id number] 11/11/2019 04:00:00 AM EDT 40 mg Intravenous completed 40 mg, I ntravenous, Once, Thu11/11/19 at 0400, For 1 dose [facility] Medication administered onsite Melatonin 3 MG Oral Tablet melatonin tablet 3 mg melatonin t ablet 3 mg 11/10/2019 10:00:00 PM EDT 3 mg Oral aborted 3 mg, Oral, Nightly, First dose on [place] 6/11/20 at 2200, For 30 days [facility] Medication administered onsite Carboxymethylcellulose Sodium 5 MG/ML Op hthalmic Solution carboxymethylcellulose PF (REFRESH PLUS) 0.5 % ophthalmic solution 1 drop carboxymethylcellulose PF (REFRESH PLUS) 0.5 % ophthalmic solution 1 drop 11/10/2019 03:00:22 PM EDT 1 [drp] Both Eyes aborted 1 drop, Chin th Eyes, Three Times Daily-PRN, Dry Eyes, Starting Thu11/10/19 at 1500, For 33 days 1 hour [facility] Medication administered onsite dexamethasone (DECADRON) injection 8 mg [id number] 11/10/19 10:45:00 AM EDT 8 mg Intravenous aborted 8 mg, Intrav enous, Every 8 hours, First dose on Thu11/10/19 at 1045, For 3 days [facility] Medication administered onsite duloxetine 30 MG Delayed Release Oral Ca psule DULoxetine (CYMBALTA) DR capsule 30 mg DULoxetine (CYMBALTA) DR capsule 30 mg 11/10/2019 09:00:00 AM EDT 30 mg Per NG tube aborted 30 mg, Per NG tube, Daily Standard, First dose on Thu11/10/19 at 0900, For 30 days
Do not crush or chew. Contents of capsule can be added to a plastic catheter tip syringe with 50 mL of water and gently shaken for 10 seconds before administering through a 12 [place] or larger nasogastric tube. Ensure no pellets are left in the syringe; if present, rinse syringe with an additional 15 mL of water.
[facility] Medication administered onsite furosemide (LASIX) injection 40 mg [id number] 11/10/2019 04:00:00 AM EDT 40 mg Intravenous completed 40 mg, I ntravenous, Once, Thu11/10/19 at 0400, For 1 dose [facility] Medication administered onsite Psyllium 14.6 MG/ML Oral Suspension psyllium powder 1 packet psyllium powder 1 packet 11/09/2019 09:00:00 PM EDT 1 {packet} Oral aborted 1 packet, Oral, 2 Times Daily, First dose on Thu11/09/19 at 2100, For 30 days [facility] Medication administered onsite Piperacillin 3000 MG / tazobactam 375 MG Injection piperacillin-tazobactam (ZOSYN) IVPB 3.375 g (premix) piperacillin-tazobactam (ZOSYN) IVPB 3.3 75 g (premix) 11/09/2019 01:45:00 PM EDT 3.375 g Intravenous com pleted 3.375 g, Intravenous, Administer over 4 Hours, Every 8 hours, First dose on Thu11/09/19 at 1345, For 7 days [facility] Medication administered onsite fentaNYL (SUBLIMAZE) (PF) injection 25 mcg [id number] 11/09/2019 06:29:33 AM EDT 25 ug Intravenous completed 25 mcg, Intravenous, Every 2 hours PRN, Severe Pain (Pain Scale Score 7-10), Starting Thu11/09/19 at 0629, For 3 days [facility] Medication administered onsite furosemide (LASIX) injection 20 mg [id number] 11/08/2019 09:00:00 PM EDT 20 mg Intravenous completed 20 mg, I ntravenous, 2 Times Daily, First dose on Thu11/08/19 at 2100, For 3 days [facility] Medication administered onsite glycopyrrolate (ROBINUL) injection 0.1 mg [id number] 11/08/2019 09:30:00 AM EDT 0.1 mg Intravenous aborted 0.1 mg, Intravenous, Three Times Daily Standard, First dose (after last modification) on Thu11/08/19 at 0930, For 5 days [facility] Medication administered onsite fentaNYL (SUBLIMAZE) 50 mcg/mL continuous infusion FENTANYLP CANCA 11/08/2019 09:15:00 AM EDT Intravenous aborted 10-200 mcg/hr (0.2-4 mL/hr), Intravenous, at 0.2-4 mL/hr, Continuous, Starting Thu11/08/19 at 0915, For 7 days
Starting dose = 25 mcg/hr
Titrate to maintain BPS less than 6 or VPS less than 4
Increase by 12.5 mcg/hr
Max Dose = 200 mcg/hr
[facility] Medication administered onsite Lisinopril 10 MG Oral Tablet lisinopril (ZESTRIL) tabl et 10 mg lisinopril (ZESTRIL) tablet 10 mg 11/08/2019 09:00:00 AM EDT 10 mg Per NG tub e aborted 10 mg, Per NG tube, Daily Standard, First dose (after last modification) on Thu11/08/19 at 0900, For 58 doses
Check vital signs before administering
[facility] Medication administered onsite tizanidine 4 MG Oral Tablet tizanidine (ZANAFLEX) tabl et 4 mg tizanidine (ZANAFLEX) tablet 4 mg 11/07/2019 10:00:00 PM EDT 4 mg Oral aborted 4 mg, Oral, Nightly, First dose on Thu11/07/19 at 2200, For 30 days [facility] Medication administered onsite fentaNYL (SUBLIMAZE) (PF) injection 25 mcg [id number] 11/07/2019 05:59:56 PM EDT 25 ug Intravenous aborted 25 m cg, Intravenous, Every 2 hours PRN, Severe Pain (Pain Scale Score 7-10), Starting Thu11/07/19 at 1759, For 3 days [facility] Medication administered onsite propofol (DIPRIVAN) bolus [id number] 11/07/2019 03:45:00 PM EDT 100 mg Intravenous completed 100 mg, Intra venous, Once, Thu11/07/19 at 1545, For 1 dose [facility] Medication administered onsite fentaNYL (SUBLIMAZE) (PF) injection 100 mcg [id number] 11/07/2019 03:45:00 PM EDT 100 ug Intravenous completed 10 0 mcg, Intravenous, Once, Thu11/07/19 at 1545, For 1 dose [facility] Medication administered onsite Succinylcholine Chloride 20 MG/ML Inject able Solution succinylcholine (ANECTINE) injection 140 mg succinylcholine (ANECTINE) injection 140 mg 11/07/2019 03:45:00 PM EDT 140 mg Intravenous completed 140 mg, Intravenous, Once, Thu11/07/19 at 1545, For 1 dose [facility] Medication administered onsite 2 ML Midazolam 1 MG/ML Injection midazolam (PF) (VERSE D) injection 2 mg midazolam (PF) (VERSED) injection 2 mg 11/07/2019 03:45:00 PM EDT 2 mg Intravenous completed 2 mg, Intrave nous, Once, Thu11/07/19 at 1545, For 1 dose [facility] Medication administered onsite propofol (DIPRIVAN) 1000 MG/100ML infusion [id number] 11/07/2019 03:21:26 PM EDT completed Starti ng Thu11/07/19 at 1521, For 1 dose
German Dixon : cabinet override
German Dixon : cabinet override
[facility] Medication administered onsite Succinylcholine Chloride 20 MG/ML Inject able Solution succinylcholine (ANECTINE) 20 MG/ML injection succinylcholine (ANECTINE) 20 MG/ML injection 11/07/19 03:17:18 PM EDT completed Starting Thu11/07/19 at 1517, For 1 dose
German Dixon : cabinet override
[facility] Medication administered onsite 2 ML Midazolam 1 MG/ML Injection midazolam (PF) (VERSE D) 2 MG/2ML injection midazolam (PF) (VERSED) 2 MG/2ML injection 11/07/2019 03:17:09 PM EDT completed Starting Thu11/07/19 at 1517, For 1 dose
German Dixon : cabinet override
[facility] Medication administered onsite fentaNYL (SUBLIMAZE) 100 MCG/2ML (PF) injection [id number] 11/07/2019 03:16:58 PM EDT completed Starti ng Thu11/07/19 at 1516, For 1 dose
German Dixon : cabinet override
[facility] Medication administered onsite Atenolol 25 MG Oral Tablet atenolol (TENORMIN) tablet 25 mg atenolol (TENORMIN) tablet 25 mg 11/07/2019 11:30:00 AM EDT 25 mg Per NG tube aborted 25 mg, Per NG tube, Daily Standard, First dose (after last modification) on Thu11/07/19 at 1130, For 58 doses
Check vital signs before administering
[facility] Medication administered onsite Docusate Sodium 10 MG/ML Oral Suspension docusate (COLACE) 50 MG/5ML liquid 100 mg docusate (COLACE) 50 MG/5ML liquid 100 mg 11/06/2019 09:00:00 PM EDT 100 mg Oral aborted 100 mg, Or al, 2 Times Daily, First dose on 11/06/19 at 2100, For 117 doses [facility] Medication administered onsite insulin lispro (HUMALOG) injection HIGH DOSE TUBE CONT INSULIN patients 1-16 Units [id number] 11/06/2019 12:00:00 PM EDT Subcutaneous aborted 1-16 Units, Subcutaneous, Every 4 hours, First dose on 11/06/19 at 1200, For 353 doses
Nursing MUST open the 'SQ Insulin Dosing Charts' Sidebar Report, or, the Patient Summary or Summary Report within the ED.
[facility] Medication administered onsite ondansetron (ZOFRAN) injection 4 mg [id number] 11/05/2019 08:57:4 3 PM EDT 4 mg Intravenous completed 4 mg, In travenous, Every 8 hours PRN, Nausea, Vomiting, Starting 11/05/19 at 2057, For 12 days 10 hours [facility] Medication administered onsite insulin lispro (HUMALOG) injection CUSTO MIZABLE DOSE INSULIN patients 1-40 Units [id number] 11/05/2019 12:00:00 PM EDT Subcutaneous aborted 1-40 Units, Subcutaneous, Every 4 hours, First dose (after last modification) on 11/05/19 at 1200, For 168 doses
Nursing MUST open the 'SQ Insulin Dosing Charts' Sidebar Report, or, the Patient Summary or Summary Report within the ED.
Patient Type: NPO
<70 give (units or other): Hypoglycemia Protocol and then, once blood glucose level > 70 give insulin dose in 71-100 row regardless of new blood glucose level.
71-100 give (units): 0
101-140 give (units): 0
141-180 give (units): 3
181-220 give (units): 5
221-260 give (units): 7
261-300 give (units): 9
301-350 give (units): 11
351- 400 give (units): 13
>401 give (units) AND NOTIFY: 13 [facility] Medication administered onsite heparin (porcine) 5000 UNIT/ML injection 5,000 Units [id number] 11/05/2019 09:00:00 AM EDT 5000 U Subcutaneous aborted 5,000 Units, Subcutaneous, Three Times Daily Standard, First dose on 11/05/19 at 0900, For 30 days [facility] Medication administered onsite potassium chloride (K-DUR) dissolvable tablet 40 mEq [id number] 11/05/2019 05:15:00 AM EDT 40 meq Oral completed 40 mEq, Oral, Once, 11/05/19 at 0515, For 1 dose
May be dissolved in water for patients with a G-Tube or unable to swallow. If concern for clogging G-Tube, may contact Pharmacy to switch formulation to a powder packet.
[facility] Medication administered onsite sennosides, NURSING HOME 35.2 MG/ML Oral Solution senna (SENOKO T) syrup 10 mL senna (SENOKOT) syrup 10 mL 11/04/2019 10:00:00 PM EDT 10 mL Oral aborted 10 mL, Oral, Nightly, First dose (after last modification) on Thu11/04/19 at 2200, For 30 doses [facility] Medication administered onsite lidocaine (XYLOCAINE) 1 % injection 5 mL [id number] 11/04/2019 05:49:28 PM EDT 5 mL Subcutaneous aborted 5 m L, Subcutaneous, Once PRN, for PICC insertion, Starting Thu11/04/19 at 1749, For 30 days [facility] Medication administered onsite sodium chloride (preservative free) 0.9 % flush 10 mL 11/04/2019 05:49:28 PM EDT 10 mL Intravenous aborted [facility] Medication administered onsite Bisacodyl 10 MG Rectal Suppository bisacodyl (DULCOLAX ) suppository 10 mg bisacodyl (DULCOLAX) suppository 10 mg 11/04/2019 03:28:41 PM EDT 10 mg Rectal aborted 10 mg, Rectal, Daily PRN, Constipation, Starting Thu11/04/19 at 1528, For 39 days [facility] Medication administered onsite fentaNYL (SUBLIMAZE) (PF) injection 25 mcg [id number] 11/04/2019 03:23:22 PM EDT 25 ug Intravenous completed 25 mcg, Intravenous, Every 2 hours PRN, Severe Pain (Pain Scale Score 7-10), Starting Thu11/04/19 at 1523, For 3 days [facility] Medication administered onsite Acetaminophen 32 MG/ML Oral Solution pati taminophen (TYLENOL) 160 MG/5ML solution (ADULT) 1,000 mg acetaminophen (TYLENOL) 160 MG/5ML solution (ADULT) 1, 000 mg 11/04/2019 11:15:00 AM EDT 1000 mg Oral aborted 1,000 mg, Oral, Every 8 hours, First dose on Thu11/04/19 at 1115, For 30 days
Maximum dose of acetaminophen is 3,000 mg from all sources in 24 hours.
[facility] Medication administered onsite furosemide (LASIX) 1 mg/mL in dextrose 5 % 250 mL infusion 11/04/2019 11:15:00 AM EDT Intravenous aborted 2.5- 20 mg/hr (2.5-20 mL/hr), Intravenous, at 2.5-20 mL/hr, Continuous, Starting Thu11/04/19 at 1115, For 30 days
Starting dose: 5 mg/hrTitrate to NET NEGATIVE 100 mL/hr.Increase or decrease rate by 50 % to achieve titration target.Maximum dose: 20 mg/h
Notify provider if systolic blood pressure less than: 90 [facility] Medication administered onsite furosemide (LASIX) injection 20 mg [id number] 11/04/2019 09:45:00 AM EDT 20 mg Intravenous completed 20 mg, I ntravenous, Once, Thu11/04/19 at 0945, For 1 dose [facility] Medication administered onsite gabapentin 50 MG/ML Oral Solution gabape ntin (NEURONTIN) 250 MG/5ML solution 300 mg gabapentin (NEURONTIN) 250 MG/5ML solution 300 mg 09/2019 09:00:00 AM EDT 300 mg Oral aborted 300 mg, Oral, Every 8 hours Standard (3 times per day), First dose on Thu11/04/19 at 0900, For 30 days [facility] Medication administered onsite dexmedetomidine (PRECEDEX) in NaCl 0.9 % infusion 4 mcg/mL 1 [id number] 11/04/2019 08:15:00 AM EDT Intravenous aborted 0.1-1.5 mcg/kg/hr 125.6 kg (3.14-47.1 mL/hr, rounded to 3.1-47.1 mL/hr), Intravenous, at 3.1-47.1 mL/hr, Continuous, Starting Thu11/04/19 at 0815, For 30 days
Starting dose = 0.2 mcg/kg/hrTitrate to maintain RASS of -1 Titrate by 0.1-0.2 mcg/kg/hrMax Dose = 1.5 mcg/kg/hr Titrate down if RASS of -2
[facility] Medication administered onsite pantoprazole 4 MG/ML Injectable Solution pantoprazole (PROTONIX) injection 40 mg pantoprazole (PROTONIX) injection 40 mg 11/04/2019 06:45:00 AM EDT 40 mg Intravenous aborted 40 mg, Intrav enous, Daily Standard, First dose on Thu11/04/19 at 0645, For 30 days [facility] Medication administered onsite Acetaminophen 10 MG/ML Injectable Soluti on acetaminophen (OFIRMEV) infusion 1,000 mg acetaminophen (OFIRMEV) infusion 1,000 mg 11/04/2019 06:45:00 AM EDT 1000 mg Intravenous aborted 1,000 mg , Intravenous, Administer over 15 Minutes, Every 8 hours, First dose (after last reorder) on Thu11/04/19 at 0645, For 1 day
Maximum dose 3 gm daily from all sources
[facility] Medication administered onsite potassium chloride (K-DUR) dissolvable tablet 20 mEq [id number] 11/04/2019 06:30:00 AM EDT 20 meq Oral aborted 20 mEq, Oral, Four Times Daily Standard, First dose on Thu11/04/19 at 0630, For 30 days
May be dissolved in water for patients with a G-Tube or unable to swallow. If concern for clogging G-Tube, may contact Pharmacy to switch formulation to a powder packet.
[facility] Medication administered onsite furosemide (LASIX) injection 20 mg [id number] 11/04/2019 03:30:00 AM EDT 20 mg Intravenous completed 20 mg, I ntravenous, Once, Thu11/04/19 at 0330, For 1 dose [facility] Medication administered onsite furosemide (LASIX) injection 20 mg [id number] 11/04/2019 12:15:00 AM EDT 20 mg Intravenous completed 20 mg, I ntravenous, Once, Thu11/04/19 at 0015, For 1 dose [facility] Medication administered onsite furosemide (LASIX) injection 20 mg [id number] 11/03/2019 06:45:00 PM EDT 20 mg Intravenous completed 20 mg, I ntravenous, Once, Thu11/03/19 at 1845, For 1 dose [facility] Medication administered onsite propofol (DIPRIVAN) infusion 1,000 mg/100 mL [id number] 11/03/2019 03:30:00 PM EDT Intravenous aborted 10-8 0 mcg/kg/min 123.8 kg (7.428-59.424 mL/hr, rounded to 7.4-59.4 mL/hr), Intravenous, at 7.4- 59.4 mL/hr, Continuous, Starting Alina 11/03/19 at 1530, For 30 days
Starting dose = 10 mcg/kg/minTitrate to maintain RASS of 1 Increase by 5-10 mcg/kg/minMax Dose = 80 mcg/kg/min Titrate down if RASS of -3
[facility] Medication administered onsite fentaNYL (SUBLIMAZE) 50 mcg/mL continuous infusion FENTANYLP CANCA 11/03/2019 03:30:00 PM EDT Intravenous aborted 10-200 mcg/hr (0.2-4 mL/hr), Intravenous, at 0.2-4 mL/hr, Continuous, Starting Alina 11/03/19 at 1530, For 7 days
Starting dose = 25 mcg/hrTitrate to maintain BPS less than 6 or VPS less than 4Increase by 12.5 mcg/hrMax Dose = 300 mcg/hr
[facility] Medication administered onsite fentaNYL (SUBLIMAZE) bolus from bag 25 mcg FENTANYLPCANCA 11/03/2019 03:22:09 PM EDT 25 ug Intravenous aborted 25 m cg, Intravenous, Every 2 hours PRN, Severe Pain (Pain Scale Score 7-10), Starting Alina 11/03/19 at 1522, For 3 days [facility] Medication administered onsite furosemide (LASIX) injection 20 mg [id number] 11/03/2019 02:45:00 PM EDT 20 mg Intravenous completed 20 mg, I ntravenous, Once, Alina 11/03/19 at 1445, For 1 dose [facility] Medication administered onsite Oxycodone Hydrochloride 1 MG/ML Oral Valarie ution oxyCODONE (ROXICODONE) 5 MG/5ML solution 10 mg oxyCODONE (ROXICODONE) 5 MG/5ML solution 10 mg 020 02:14:21 PM EDT 10 mg Oral completed 10 mg, Oral, Once PRN, Moderate Pain (Pain Scale Score 4-6), Starting Alina 11/03/19 at 1414, For 1 dose [facility] Medication administered onsite fentaNYL (SUBLIMAZE) (PF) injection 50 mcg [id number] 11/03/2019 12:27:12 PM EDT 50 ug Intravenous aborted 50 m cg, Intravenous, Every 2 hours PRN, Moderate Pain (Pain Scale Score 4-6), Severe Pain (Pain Scale Score 7-10), Starting Alina 11/03/19 at 1227, For 31 hours [facility] Medication administered onsite insulin lispro (HUMALOG) injection CUSTO MIZABLE DOSE INSULIN patients 1-40 Units [id number] 11/03/2019 12:00:00 PM EDT Subcutaneous aborted 1-40 Units, Subcutaneous, Every 4 hours, First dose on Alina 11/03/19 at 1200, For 30 days
Nursing MUST open the 'SQ Insulin Dosing Charts' Sidebar Report, or, the Patient Summary or Summary Report within the ED.
Patient Type: NPO
<70 give (units or other): Hypoglycemia Protocol and then, once blood glucose level > 70 give insulin dose in 71-100 row regardless of new blood glucose level.
71-100 give (units): 0
101-140 give (units): 0
141-180 give (units): 2
181-220 give (units): 4
221-260 give (units): 6
261-300 give (units): 8
301-350 give (units): 10
351-400 give (units): 12
>401 give (units) AND NOTIFY: 12 [facility] Medication administered onsite Glucagon 1 MG Injection glucagon (human recombinant) ( GLUCAGEN) injection 1 mg glucagon (human recombinant) (GLUCAGEN) injection 1 mg 11/03/2019 09:49:40 AM EDT 1 mg Intramuscular aborted 1 mg, Intramuscular, PRN, for glucose <55 without IV access, Starting Thu11/03/19 at 0949, For 40 days 6 hours [facility] Medication administered onsite Glucose 0.417 MG/MG Oral Gel glucose (GLUTOSE) 40 % or al gel 15 g glucose (GLUTOSE) 40 % oral gel 15 g 11/03/2019 09:49:40 AM EDT 15 g Oral aborted 15 g, Oral, PRN, Low blood s ugar, for gluose 55-69 mg/dl and able to take PO, Starting Thu11/03/19 at 0949, For 40 days 6 hours [facility] Medication administered onsite furosemide (LASIX) injection 10 mg [id number] 11/03/2019 09:45:00 AM EDT 10 mg Intravenous completed 10 mg, I ntravenous, Once, Thu11/03/19 at 0945, For 1 dose [facility] Medication administered onsite Nystatin 100 UNT/MG Topical Powder nystatin (MYCOSTATI N) powder nystatin (MYCOSTATIN) powder 11/03/2019 09:00:00 AM EDT Topical completed Topical, 2 Times Daily, First dose on Thu11/03/19 at 0900, For 34 doses [facility] Medication administered onsite Docusate Sodium 10 MG/ML Oral Suspension docusate (COLACE) 50 MG/5ML liquid 100 mg docusate (COLACE) 50 MG/5ML liquid 100 mg 11/02/2019 09:00:00 PM EDT 100 mg Oral aborted 100 mg, Or al, 2 Times Daily, First dose on Thu11/02/19 at 2100, For 30 days [facility] Medication administered onsite insulin regular (HumuLIN R) 100 units in sodium chloride 0.9 % 100 mL (1 unit/mL) infusion (premix) [id number] 11/02/2019 02:45:00 PM EDT 1 U/h Intravenous aborted 1 Units/hr (1 mL/hr), Intravenous, at 1 mL/hr, Continuous, Starting Thu11/02/19 at 1445, For 30 days
Call for titration.
[facility] Medication administered onsite insulin regular (HumuLIN R) 100 units in sodium chloride 0.9 % 100 mL (1 unit/mL) infusion (premix) [id number] 11/02/2019 01:45:00 PM EDT 0.05 U/kg/h Intravenous aborted 0.05 Units/kg /hr 118.8 kg (5.94 mL/hr, rounded to 5.9 mL/hr), Intravenous, at 5.9 mL/hr, Continuous, Starting Thu11/02/19 at 1345, For 30 days
Starting dose = 0.1 unit/kg/hr Titrate to maintain BG [id number] by 0.01 units/kg/hrMax Dose = 0.14 unit/kg/hrTitrate down if BG <= 90
[facility] Medication administered onsite phenylephrine (AKHIL-SYNEPHRINE) in NaCl 0.9 % infusion 400 mc g/mL (premix) 11/02/2019 01:45:00 PM EDT 10 ug/min Intravenous aborted 10 mcg/min (1.5 mL/hr), Intravenous, at 1.5 mL/hr, Continuous, Starting Thu11/02/19 at 1345, For 30 days
Starting dose = 10 mcg/minTitrate to maintain MAP of 60Increase by 10-20 mcg/minMax Dose = 400 mcg/min Titrate down if MAP of 70
[facility] Medication administered onsite Acetaminophen 10 MG/ML Injectable Soluti on acetaminophen (OFIRMEV) infusion 1,000 mg acetaminophen (OFIRMEV) infusion 1,000 mg 11/02/2019 01:45:00 PM EDT 1000 mg Intravenous completed 1,000 mg , Intravenous, Administer over 15 Minutes, Every 8 hours, First dose (after last modification) on Thu11/02/19 at 1345, For 1 day
Maximum dose 3 gm daily from all sources
[facility] Medication administered onsite calcium gluconate in NaCl 0.9 % infusion 2 g/50 mL 11/02/2019 01:28:39 PM EDT 2 g Intravenous aborted 2 g, Intrave nous, Every 1 hour PRN, for ionized calcium < 1.13 mmol/L (4.51 mg/dL), Starting Thu11/02/19 at 1328, For 5 days 22 hours
Ionized Calcium 1 - 1.12 mmol/L (4.01 - 4.5 mg/dL): give 2 g q 1h x 1 Ionized Calcium less than 1 mmol/L (less than 4.01 mg/dL): give 2 g q1h x2 *For ICU Stay only, discontinue on transfer*
[facility] Medication administered onsite 50 ML Magnesium Sulfate 40 MG/ML Injecti on magnesium sulfate infusion 2 g/50 mL (premix) magnesium sulfate infusion 2 g/50 mL (premix) 11/02/19 01:28:38 PM EDT 16 meq Intravenous aborted 16 m Eq, Intravenous, Every 1 hour PRN, for serum magnesium < 2 mEq/L, Starting Thu11/02/19 at 1328, For 5 days 22 hours
Serum Magnesium 1.6 - 1.9: give 16 mEq (2 g) q1h x 2 Serum Magnesium 1.5 and less: give 16 mEq (2 g) q1h x 3 *For ICU Stay only, discontinue on transfer*
[facility] Medication administered onsite pantoprazole 4 MG/ML Injectable Solution pantoprazole (PROTONIX) injection 40 mg pantoprazole (PROTONIX) injection 40 mg 11/02/2019 05:15:00 AM EDT 40 mg Intravenous completed 40 mg, Intrav enous, Once, Thu11/02/19 at 0515, For 1 dose
Dilute with 10 mL of 0.9% NaCl.Give IVP over 2 minutes. Flush before and after.
[facility] Medication administered onsite Acetaminophen 10 MG/ML Injectable Soluti on acetaminophen (OFIRMEV) infusion 1,000 mg acetaminophen (OFIRMEV) infusion 1,000 mg 11/01/2019 10:15:56 PM EDT 1000 mg Intravenous aborted 1,000 mg , Intravenous, Administer over 15 Minutes, Every 8 hours PRN, Fever, Starting Thu11/01/19 at 2215, For 1 day
Maximum dose 3 gm daily from all sources
[facility] Medication administered onsite fentaNYL (SUBLIMAZE) 50 mcg/mL continuous infusion FENTANYLP CANCA 11/01/2019 10:15:00 PM EDT Intravenous aborted 10-200 mcg/hr (0.2-4 mL/hr), Intravenous, at 0.2-4 mL/hr, Continuous, Starting Thu11/01/19 at 2215, For 7 days
Starting dose = 25 mcg/hrTitrate to maintain BPS less than 6 or VPS less than 4Increase by 12.5 mcg/hrMax Dose = 300 mcg/hr
[facility] Medication administered onsite norepinephrine (LEVOPHED) 8 mg in dextrose 5 % 250 mL infusi on (32 mcg/mL) 11/01/2019 10:00:00 PM EDT Intravenous aborted 2-20 mcg/min (3.75- 37.5 mL/hr, rounded to 3.8-37.5 mL/hr), Intravenous, at 3.8-37.5 mL/hr, Continuous, Starting Thu11/01/19 at 2200, For 30 days [facility] Medication administered onsite 2 ML Midazolam 1 MG/ML Injection midazolam (PF) (VERSE D) injection 2 mg midazolam (PF) (VERSED) injection 2 mg 11/01/2019 09:55:50 PM EDT 2 mg Intravenous aborted 2 mg, Intrave nous, Every 2 hours PRN, Sedation, Starting Thu11/01/19 at 2155, For 2 days [facility] Medication administered onsite Calcium Chloride 0.0014 MEQ/ML / Potassi um Chloride 0.004 MEQ/ML / Sodium Chloride 0.103 MEQ/ML / Sodium Lactate 0.028 MEQ/ML Injectable Solution lactated ringers infusion lactated ringers infusion 11/01/2019 08:00:00 PM EDT 30 mL/h Intravenous aborted at 30 mL /hr, Intravenous, Continuous, Starting Thu11/01/19 at 2000, For 30 days [facility] Medication administered onsite fentaNYL (SUBLIMAZE) (PF) injection 25 mcg [id number] 11/01/2019 07:43:36 PM EDT 25 ug Intravenous aborted 25 m cg, Intravenous, Every 2 hours PRN, Moderate Pain (Pain Scale Score 4-6), Severe Pain (Pain Scale Score 7-10), Starting Thu11/01/19 at 1943, For 3 days [facility] Medication administered onsite iohexol (OMNIPAQUE) 300 MG/ML contrast injection 100 mL [id number] 3111/01/2019 07:00:00 PM EDT 100 mL Given by IV completed 100 mL, Given by IV, 1 TIME IMAGING, Thu11/01/19 at 1900, For 1 dose [facility] Medication administered onsite 0.5 ML Bordetella pertussis filamentous hemagglutinin vaccine, inactivated 0.016 MG/ML / Bordetella pertussis pertactin vaccine, inactivated 0.005 UNT/ML / Bordetella pertussis toxoid vaccine, inactivated 0.016 MG/ML / diphtheria toxoid vaccine, inactivat Tdap (BOOSTRIX) injection 0.5 mL Tdap (BOOSTRIX) injection 0.5 mL 11/01/2019 06:00:00 PM EDT 0.5 mL Intramuscular comp leted 0.5 mL, Intramuscular, Once, Thu11/01/19 at 1800, For 1 dose
If greater than 11 years and no previous pertussis allergy.
[facility] Medication administered onsite Acetaminophen 325 MG / Oxycodone Hydroch loride 7.5 MG Oral Tablet Oxycodone- Acetaminophen 7.5-325 MG Oxycodone-Acetaminophen 7.5-325 MG 11/01/2019 12:00:00 AM EDT 1.0 {tablet_as_needed} suspended Oxycodone-Acetaminophen 7.5- 325 MG eCW1 ([facility]) Acetaminophen 325 MG / Oxycodone Hydroch loride 7.5 MG Oral Tablet Oxycodone- Acetaminophen 7.5-325 MG Oxycodone-Acetaminophen 7.5-325 MG 11/01/2019 12:00:00 AM EDT 1.0 {tablet_as_needed} active Oxycodone-Acetaminophen 7.5-325 MG eCW1 ([facility]) Acetaminophen 325 MG / Oxycodone Hydroch loride 7.5 MG Oral Tablet Oxycodone- Acetaminophen 7.5-325 MG Oxycodone-Acetaminophen 7.5-325 MG 11/01/2019 12:00:00 AM EDT 1.0 {tablet_as_needed} suspended Oxycodone-Acetaminophen 7.5- 325 MG eCW1 ([facility]) Acetaminophen 325 MG / Oxycodone Hydroch loride 7.5 MG Oral Tablet Oxycodone- Acetaminophen 7.5-325 MG Oxycodone-Acetaminophen 7.5-325 MG 11/01/2019 12:00:00 AM EDT 1.0 {tablet_as_needed} suspended Oxycodone-Acetaminophen 7.5- 325 MG eCW1 ([facility]) Acetaminophen 325 MG / Oxycodone Hydroch loride 7.5 MG Oral Tablet Oxycodone- Acetaminophen 7.5-325 MG Oxycodone-Acetaminophen 7.5-325 MG 11/01/2019 12:00:00 AM EDT 1.0 {tablet_as_needed} active Oxycodone-Acetaminophen 7.5-325 MG eCW1 ([facility]) Acetaminophen 325 MG / Oxycodone Hydroch loride 7.5 MG Oral Tablet Oxycodone- Acetaminophen 7.5-325 MG Oxycodone-Acetaminophen 7.5-325 MG 11/01/2019 12:00:00 AM EDT 1.0 {tablet_as_needed} suspended Oxycodone-Acetaminophen 7.5- 325 MG eCW1 ([facility]) Acetaminophen 325 MG / Oxycodone Hydroch loride 7.5 MG Oral Tablet Oxycodone- Acetaminophen 7.5-325 MG Oxycodone-Acetaminophen 7.5-325 MG 11/01/2019 12:00:00 AM EDT 1.0 {tablet_as_needed} suspended Oxycodone-Acetaminophen 7.5- 325 MG eCW1 ([facility]) Acetaminophen 325 MG / Oxycodone Hydroch loride 7.5 MG Oral Tablet Oxycodone- Acetaminophen 7.5-325 MG Oxycodone-Acetaminophen 7.5-325 MG 11/01/2019 12:00:00 AM EDT 1.0 {tablet_as_needed} suspended Oxycodone-Acetaminophen 7.5- 325 MG eCW1 ([facility]) Acetaminophen 325 MG / Oxycodone Hydroch loride 7.5 MG Oral Tablet Oxycodone- Acetaminophen 7.5-325 MG Oxycodone-Acetaminophen 7.5-325 MG 11/01/2019 12:00:00 AM EDT 1.0 {tablet_as_needed} suspended Oxycodone-Acetaminophen 7.5- 325 MG eCW1 ([facility]) Acetaminophen 325 MG / Oxycodone Hydroch loride 7.5 MG Oral Tablet Oxycodone- Acetaminophen 7.5-325 MG Oxycodone-Acetaminophen 7.5-325 MG 11/01/2019 12:00:00 AM EDT 1.0 {tablet_as_needed} active Oxycodone-Acetaminophen 7.5-325 MG eCW1 ([facility]) Acetaminophen 325 MG / Oxycodone Hydroch loride 7.5 MG Oral Tablet Oxycodone- Acetaminophen 7.5-325 MG Oxycodone-Acetaminophen 7.5-325 MG 11/01/2019 12:00:00 AM EDT 1.0 {tablet_as_needed} active Oxycodone-Acetaminophen 7.5-325 MG eCW1 ([facility]) Acetaminophen 325 MG / Oxycodone Hydroch loride 7.5 MG Oral Tablet Oxycodone- Acetaminophen 7.5-325 MG Oxycodone-Acetaminophen 7.5-325 MG 11/01/2019 12:00:00 AM EDT 1.0 {tablet_as_needed} suspended Oxycodone-Acetaminophen 7.5- 325 MG eCW1 ([facility]) Acetaminophen 325 MG / Oxycodone Hydroch loride 7.5 MG Oral Tablet Oxycodone- Acetaminophen 7.5-325 MG Oxycodone-Acetaminophen 7.5-325 MG 11/01/2019 12:00:00 AM EDT 1.0 {tablet_as_needed} suspended Oxycodone-Acetaminophen 7.5- 325 MG eCW1 ([facility]) Acetaminophen 325 MG / Oxycodone Hydroch loride 7.5 MG Oral Tablet Oxycodone- Acetaminophen 7.5-325 MG Oxycodone-Acetaminophen 7.5-325 MG 11/01/2019 12:00:00 AM EDT 1.0 {tablet_as_needed} active Oxycodone-Acetaminophen 7.5-325 MG eCW1 ([facility]) Acetaminophen 325 MG / Oxycodone Hydroch loride 7.5 MG Oral Tablet Oxycodone- Acetaminophen 7.5-325 MG Oxycodone-Acetaminophen 7.5-325 MG 11/01/2019 12:00:00 AM EDT 1.0 {tablet_as_needed} suspended Oxycodone-Acetaminophen 7.5- 325 MG eCW1 ([facility]) Acetaminophen 325 MG / Oxycodone Hydroch loride 7.5 MG Oral Tablet Oxycodone- Acetaminophen 7.5-325 MG Oxycodone-Acetaminophen 7.5-325 MG 11/01/2019 12:00:00 AM EDT 1.0 {tablet_as_needed} suspended Oxycodone-Acetaminophen 7.5- 325 MG eCW1 ([facility]) Acetaminophen 325 MG / Oxycodone Hydroch loride 7.5 MG Oral Tablet Oxycodone- Acetaminophen 7.5-325 MG Oxycodone-Acetaminophen 7.5-325 MG 11/01/2019 12:00:00 AM EDT 1.0 {tablet_as_needed} active Oxycodone-Acetaminophen 7.5-325 MG eCW1 ([facility]) Prednisone 20 MG Oral Tablet PredniSONE 20 MG PredniSONE 20 MG 09/27/2019 12:00:00 AM EDT active 2 tablet eCW1 ([facility]) Magnesium 400 MG UNK 09/27/2019 12:00:00 AM EDT active Magn[facility] Acetaminophen 325 MG Oral Tablet [Tylenol] Tylenol 325 MG Ty lenol 325 MG 09/27/2019 12:00:00 AM EDT 2.0 {tablet_as_needed} active Tylenol 325 MG [facility]CW1 [facility] Capsaicin 0.93318 MG/MG / Lidocaine Hydr ochloride 0.005 MG/MG / Menthol 0.05 MG/MG / methyl salicylate 0.2 MG/MG Transdermal Patch Lzhx-Uepse-Xmqwbqnqx 0.5-0.035-5-20 % Locl-Rynku-Ndzxdezef 0.5-0.035-5-20 % 09/27/2019 12:00 :00 AM EDT active Nnra-Newow-Acpkcp ine 0.5-0.035-5-20 % eCW1 ([facility]) Magnesium 400 MG UNK 09/27/2019 12:00:00 AM EDT active Magnesium 400 MG eCW1 ([facility]) Prednisone 10 MG Oral Tablet PredniSONE 10 MG PredniSONE 10 MG 09/27/2019 12:00:00 AM EDT 1.0 {tablet} active Pr edniSONE 10 MG eCW1 ([facility]) Acetaminophen 325 MG Oral Tablet [Tylenol] Tylenol 325 MG Ty lenol 325 MG 09/27/2019 12:00:00 AM EDT 2.0 {tablet_as_needed} active Tylenol 325 MG eCW1 ([facility]) Magnesium 400 MG UNK 09/27/2019 12:00:00 AM EDT active Magnesium 400 MG eCW1 ([facility]) Capsaicin 0.05853 MG/MG / Lidocaine Hydr ochloride 0.005 MG/MG / Menthol 0.05 MG/MG / methyl salicylate 0.2 MG/MG Transdermal Patch Xjkh-Quwqv-Isjzlmezt 0.5-0.035-5-20 % Hdgc-Fqeum-Jqrcgizjh 0.5-0.035-5-20 % 09/27/2019 12:00 :00 AM EDT active Uucb-Euchy-Vhoptg ine 0.5-0.035-5-20 % eCW1 ([facility]) Acetaminophen 325 MG Oral Tablet [Tylenol] Tylenol 325 MG Ty lenol 325 MG 09/27/2019 12:00:00 AM EDT active 2 tablet as needed eCW1 ([facility]) Acetaminophen 325 MG Oral Tablet [Tylenol] Tylenol 325 MG Ty lenol 325 MG 09/27/2019 12:00:00 AM EDT 2.0 {tablet_as_needed} active Tylenol 325 MG eCW1 ([facility]) Prednisone 10 MG Oral Tablet PredniSONE 10 MG PredniSONE 10 MG 09/27/2019 12:00:00 AM EDT 1.0 {tablet} active Pr edniSONE 10 MG eCW1 ([facility]) Acetaminophen 325 MG Oral Tablet [Tylenol] Tylenol 325 MG Ty lenol 325 MG 09/27/2019 12:00:00 AM EDT 2.0 {tablet_as_needed} active Tylenol 325 MG eCW1 ([facility]) Prednisone 20 MG Oral Tablet PredniSONE 20 MG PredniSONE 20 MG 09/27/2019 12:00:00 AM EDT 2.0 {tablet} active Pr edniSONE 20 MG eCW1 ([facility]) Prednisone 10 MG Oral Tablet PredniSONE 10 MG PredniSONE 10 MG 09/27/2019 12:00:00 AM EDT 1.0 {tablet} active Pr edniSONE 10 MG eCW1 ([facility]) Prednisone 10 MG Oral Tablet PredniSONE 10 MG PredniSONE 10 MG 09/27/2019 12:00:00 AM EDT 1.0 {tablet} active Pr edniSONE 10 MG eCW1 ([facility]) Capsaicin 0.09898 MG/MG / Lidocaine Hydr ochloride 0.005 MG/MG / Menthol 0.05 MG/MG / methyl salicylate 0.2 MG/MG Transdermal Patch Xtnj-Dygrh-Bdpuxlimj 0.5-0.035-5-20 % Nvtw-Xqnwb-Podldzszf 0.5-0.035-5-20 % 09/27/2019 12:00 :00 AM EDT active 1 patch to skin as needed eCW1 ([facility]) Capsaicin 0.06856 MG/MG / Lidocaine Hydr ochloride 0.005 MG/MG / Menthol 0.05 MG/MG / methyl salicylate 0.2 MG/MG Transdermal Patch Tcil-Ybcrv-Idyectzsq 0.5-0.035-5-20 % Woqz-Ecxxn-Rlixyraqi 0.5-0.035-5-20 % 09/27/2019 12:00 :00 AM EDT active Oojv-Pjutk-Mzuwce ine 0.5-0.035-5-20 % eCW1 ([facility]) Prednisone 20 MG Oral Tablet PredniSONE 20 MG PredniSONE 20 MG 09/27/2019 12:00:00 AM EDT 2.0 {tablet} active Pr edniSONE 20 MG eCW1 ([facility]) Acetaminophen 325 MG / Oxycodone Hydroch loride 7.5 MG Oral Tablet Oxycodone- Acetaminophen 7.5-325 MG Oxycodone-Acetaminophen 7.5-325 MG 09/27/2019 12:00:00 AM EDT active 1 tablet as neede d eCW1 ([facility]) Prednisone 10 MG Oral Tablet PredniSONE 10 MG PredniSONE 10 MG 09/27/2019 12:00:00 AM EDT 1.0 {tablet} active Pr edniSONE 10 MG eCW1 ([facility]) Capsaicin 0.39791 MG/MG / Lidocaine Hydr ochloride 0.005 MG/MG / Menthol 0.05 MG/MG / methyl salicylate 0.2 MG/MG Transdermal Patch Uhsg-Rxfty-Amjidmxhy 0.5-0.035-5-20 % Sdze-Fijxb-Ekswmljjl 0.5-0.035-5-20 % 09/27/2019 12:00 :00 AM EDT active Kfzv-Oiiik-Vggpof ine 0.5-0.035-5-20 % eCW1 ([facility]) Magnesium 400 MG UNK 09/27/2019 12:00:00 AM EDT a ctive 1 cap eCW1 ([facility]) Capsaicin 0.00331 MG/MG / Lidocaine Hydr ochloride 0.005 MG/MG / Menthol 0.05 MG/MG / methyl salicylate 0.2 MG/MG Transdermal Patch Qhon-Iinsz-Gztjwjptd 0.5-0.035-5-20 % Wygc-Gzyhs-Dbtjqjvuh 0.5-0.035-5-20 % 09/27/2019 12:00 :00 AM EDT active 1 patch to skin as needed eCW1 ([facility]) Prednisone 20 MG Oral Tablet PredniSONE 20 MG PredniSONE 20 MG 09/27/2019 12:00:00 AM EDT 2.0 {tablet} active Pr edniSONE 20 MG eCW1 ([facility]) Acetaminophen 325 MG Oral Tablet [Tylenol] Tylenol 325 MG Ty lenol 325 MG 09/27/2019 12:00:00 AM EDT 2.0 {tablet_as_needed} active Tylenol 325 MG eCW1 ([facility]) Prednisone 20 MG Oral Tablet PredniSONE 20 MG PredniSONE 20 MG 09/27/2019 12:00:00 AM EDT 2.0 {tablet} active Pr edniSONE 20 MG eCW1 ([facility]) Magnesium 400 MG UNK 09/27/2019 12:00:00 AM EDT a ctive 1 cap eCW1 ([facility]) Prednisone 10 MG Oral Tablet PredniSONE 10 MG PredniSONE 10 MG 09/27/2019 12:00:00 AM EDT 1.0 {tablet} active Pr edniSONE 10 MG eCW1 ([facility]) Capsaicin 0.49510 MG/MG / Lidocaine Hydr ochloride 0.005 MG/MG / Menthol 0.05 MG/MG / methyl salicylate 0.2 MG/MG Transdermal Patch Dsgi-Fmpst-Mbewyenpo 0.5-0.035-5-20 % Ffeb-Atdgr-Xbfchkwxw 0.5-0.035-5-20 % 09/27/2019 12:00 :00 AM EDT active Wrss-Svwdm-Jzjjpl ine 0.5-0.035-5-20 % eCW1 ([facility]) Magnesium 400 MG UNK 09/27/2019 12:00:00 AM EDT active Magnesium 400 MG eCW1 ([facility]) Prednisone 20 MG Oral Tablet PredniSONE 20 MG PredniSONE 20 MG 09/27/2019 12:00:00 AM EDT 2.0 {tablet} active Pr edniSONE 20 MG eCW1 ([facility]) Prednisone 20 MG Oral Tablet PredniSONE 20 MG PredniSONE 20 MG 09/27/2019 12:00:00 AM EDT 2.0 {tablet} active Pr edniSONE 20 MG eCW1 ([facility]) Prednisone 10 MG Oral Tablet PredniSONE 10 MG PredniSONE 10 MG 09/27/2019 12:00:00 AM EDT 1.0 {tablet} active Pr edniSONE 10 MG eCW1 ([facility]) Magnesium 400 MG UNK 09/27/2019 12:00:00 AM EDT active Magnesium 400 MG eCW1 ([facility]) Prednisone 10 MG Oral Tablet PredniSONE 10 MG PredniSONE 10 MG 09/27/2019 12:00:00 AM EDT 1.0 {tablet} active Pr edniSONE 10 MG eCW1 ([facility]) Acetaminophen 325 MG Oral Tablet [Tylenol] Tylenol 325 MG Ty lenol 325 MG 09/27/2019 12:00:00 AM EDT 2.0 {tablet_as_needed} active Tylenol 325 MG eCW1 ([facility]) Magnesium 400 MG UNK 09/27/2019 12:00:00 AM EDT active Magnesium 400 MG eCW1 ([facility]) Capsaicin 0.36674 MG/MG / Lidocaine Hydr ochloride 0.005 MG/MG / Menthol 0.05 MG/MG / methyl salicylate 0.2 MG/MG Transdermal Patch Hgxt-Wluya-Endynxsku 0.5-0.035-5-20 % Cwrw-Gpiix-Rbomigqau 0.5-0.035-5-20 % 09/27/2019 12:00 :00 AM EDT active Kbix-Odbzv-Youdhx ine 0.5-0.035-5-20 % eCW1 ([facility]) Acetaminophen 325 MG Oral Tablet [Tylenol] Tylenol 325 MG Ty lenol 325 MG 09/27/2019 12:00:00 AM EDT 2.0 {tablet_as_needed} active Tylenol 325 MG eCW1 ([facility]) Prednisone 20 MG Oral Tablet PredniSONE 20 MG PredniSONE 20 MG 09/27/2019 12:00:00 AM EDT active 2 tablet eCW1 ([facility]) Magnesium 400 MG UNK 09/27/2019 12:00:00 AM EDT active Magnesium 400 MG eCW1 ([facility]) Prednisone 20 MG Oral Tablet PredniSONE 20 MG PredniSONE 20 MG 09/27/2019 12:00:00 AM EDT 2.0 {tablet} active Pr edniSONE 20 MG eCW1 ([facility]) Acetaminophen 325 MG Oral Tablet [Tylenol] Tylenol 325 MG Ty lenol 325 MG 09/27/2019 12:00:00 AM EDT active 2 tablet as needed eCW1 ([facility]) Acetaminophen 325 MG / Oxycodone Hydroch loride 7.5 MG Oral Tablet Oxycodone- Acetaminophen 7.5-325 MG Oxycodone-Acetaminophen 7.5-325 MG 09/27/2019 12:00:00 AM EDT active 1 tablet as neede d eCW1 ([facility]) Capsaicin 0.63250 MG/MG / Lidocaine Hydr ochloride 0.005 MG/MG / Menthol 0.05 MG/MG / methyl salicylate 0.2 MG/MG Transdermal Patch Smqx-Cofum-Xolhgnkmp 0.5-0.035-5-20 % Jnef-Uqocu-Inchodujc 0.5-0.035-5-20 % 09/27/2019 12:00 :00 AM EDT active Nggm-Exnyf-Lgntdr ine 0.5-0.035-5-20 % eCW1 ([facility]) Magnesium 400 MG UNK 09/27/2019 12:00:00 AM EDT active Magnesium 400 MG eCW1 ([facility]) Acetaminophen 325 MG / Oxycodone Hydroch loride 7.5 MG Oral Tablet Oxycodone- Acetaminophen 7.5-325 MG Oxycodone-Acetaminophen 7.5-325 MG 09/02/2019 12:00:00 AM EDT active 1 tablet as neede d eCW1 ([facility]) Acetaminophen 325 MG / Oxycodone Hydroch loride 7.5 MG Oral Tablet Oxycodone- Acetaminophen 7.5-325 MG Oxycodone-Acetaminophen 7.5-325 MG 09/02/2019 12:00:00 AM EDT active 1 tablet as neede d eCW1 ([facility]) Phenazopyridine hydrochloride 200 MG Oral Tablet [Pyri dium] Pyridium 200 MG Pyridium 200 MG 08/16/2019 12:00:00 AM EDT 1.0 {tablet_after_meals} suspended Pyridium 200 MG eCW1 ([facility]) Phenazopyridine hydrochloride 200 MG Oral Tablet [Pyri dium] Pyridium 200 MG Pyridium 200 MG 08/16/2019 12:00:00 AM EDT ac tive 1 tablet after meals eCW1 ([facility]) Phenazopyridine hydrochloride 200 MG Oral Tablet [Pyri dium] Pyridium 200 MG Pyridium 200 MG 08/16/2019 12:00:00 AM EDT 1.0 {tablet_after_meals} suspended Pyridium 200 MG eCW1 ([facility]) Phenazopyridine hydrochloride 200 MG Oral Tablet [Pyri dium] Pyridium 200 MG Pyridium 200 MG 08/16/2019 12:00:00 AM EDT 1.0 {tablet_after_meals} suspended Pyridium 200 MG eCW1 ([facility]) Phenazopyridine hydrochloride 200 MG Oral Tablet [Pyri dium] Pyridium 200 MG Pyridium 200 MG 08/16/2019 12:00:00 AM EDT 1.0 {tablet_after_meals} suspended Pyridium 200 MG eCW1 ([facility]) Phenazopyridine hydrochloride 200 MG Oral Tablet [Pyri dium] Pyridium 200 MG Pyridium 200 MG 08/16/2019 12:00:00 AM EDT 1.0 {tablet_after_meals} suspended Pyridium 200 MG eCW1 ([facility]) Phenazopyridine hydrochloride 200 MG Oral Tablet [Pyri dium] Pyridium 200 MG Pyridium 200 MG 08/16/2019 12:00:00 AM EDT 1.0 {tablet_after_meals} suspended Pyridium 200 MG eCW1 ([facility]) Phenazopyridine hydrochloride 200 MG Oral Tablet [Pyri dium] Pyridium 200 MG Pyridium 200 MG 08/16/2019 12:00:00 AM EDT garcia spended 1 tablet after meals eCW1 ([facility]) Phenazopyridine hydrochloride 200 MG Oral Tablet [Pyri dium] Pyridium 200 MG Pyridium 200 MG 08/16/2019 12:00:00 AM EDT 1.0 {tablet_after_meals} suspended Pyridium 200 MG eCW1 ([facility]) Phenazopyridine hydrochloride 200 MG Oral Tablet [Pyri dium] Pyridium 200 MG Pyridium 200 MG 08/16/2019 12:00:00 AM EDT garcia spended 1 tablet after meals eCW1 ([facility]) Phenazopyridine hydrochloride 200 MG Oral Tablet [Pyri dium] Pyridium 200 MG Pyridium 200 MG 08/15/2019 12:00:00 AM EDT 2.0 {tablets_after_meals} suspended Pyridium 200 MG eCW1 ([facility]) Phenazopyridine hydrochloride 200 MG Oral Tablet [Pyri dium] Pyridium 200 MG Pyridium 200 MG 08/15/2019 12:00:00 AM EDT 2.0 {tablets_after_meals} suspended Pyridium 200 MG eCW1 ([facility]) Phenazopyridine hydrochloride 200 MG Oral Tablet [Pyri dium] Pyridium 200 MG Pyridium 200 MG 08/15/2019 12:00:00 AM EDT 2.0 {tablets_after_meals} suspended Pyridium 200 MG eCW1 ([facility]) Phenazopyridine hydrochloride 200 MG Oral Tablet [Pyri dium] Pyridium 200 MG Pyridium 200 MG 08/15/2019 12:00:00 AM EDT garcia spended 2 tablets after meals eCW1 ([facility]) Phenazopyridine hydrochloride 200 MG Oral Tablet [Pyri dium] Pyridium 200 MG Pyridium 200 MG 08/15/2019 12:00:00 AM EDT 2.0 {tablets_after_meals} suspended Pyridium 200 MG eCW1 ([facility]) Phenazopyridine hydrochloride 200 MG Oral Tablet [Pyri dium] Pyridium 200 MG Pyridium 200 MG 08/15/2019 12:00:00 AM EDT 2.0 {tablets_after_meals} suspended Pyridium 200 MG eCW1 ([facility]) Phenazopyridine hydrochloride 200 MG Oral Tablet [Pyri dium] Pyridium 200 MG Pyridium 200 MG 08/15/2019 12:00:00 AM EDT garcia spended 2 tablets after meals eCW1 ([facility]) Phenazopyridine hydrochloride 200 MG Oral Tablet [Pyri dium] Pyridium 200 MG Pyridium 200 MG 08/15/2019 12:00:00 AM EDT 2.0 {tablets_after_meals} suspended Pyridium 200 MG eCW1 ([facility]) Phenazopyridine hydrochloride 200 MG Oral Tablet [Pyri dium] Pyridium 200 MG Pyridium 200 MG 08/15/2019 12:00:00 AM EDT 2.0 {tablets_after_meals} suspended Pyridium 200 MG eCW1 ([facility]) Phenazopyridine hydrochloride 200 MG Oral Tablet [Pyri dium] Pyridium 200 MG Pyridium 200 MG 08/15/2019 12:00:00 AM EDT ac tive 2 tablets after meals eCW1 ([facility]) Acetaminophen 325 MG / Oxycodone Hydroch loride 7.5 MG Oral Tablet Oxycodone- Acetaminophen 7.5-325 MG Oxycodone-Acetaminophen 7.5-325 MG 08/02/2019 12:00:00 AM EST active 1 tablet as neede d eCW1 ([facility]) Acetaminophen 325 MG / Oxycodone Hydroch loride 7.5 MG Oral Tablet Oxycodone- Acetaminophen 7.5-325 MG Oxycodone-Acetaminophen 7.5-325 MG 08/02/2019 12:00:00 AM EST active 1 tablet as neede d eCW1 ([facility]) Acetaminophen 325 MG / Oxycodone Hydroch loride 7.5 MG Oral Tablet Oxycodone- Acetaminophen 7.5-325 MG Oxycodone-Acetaminophen 7.5-325 MG 08/02/2019 12:00:00 AM EST active 1 tablet as neede d eCW1 ([facility]) Levothyroxine Sodium 0.025 MG Oral Tablet Levothyroxin e Sodium 25 MCG Levothyroxine Sodium 25 MCG 07/22/2019 12:00:00 AM EST active 1 tablet in the morning on an empty stomach eCW1 ([facility]) Levothyroxine Sodium 0.025 MG Oral Tablet Levothyroxin e Sodium 25 MCG Levothyroxine Sodium 25 MCG 07/22/2019 12:00:00 AM EST active 1 tablet in the morning on an empty stomach eCW1 ([facility]) Levothyroxine Sodium 0.025 MG Oral Tablet Levothyroxin e Sodium 25 MCG Levothyroxine Sodium 25 MCG 07/22/2019 12:00:00 AM EST active Levothyroxine Sodium 25 MCG eCW1 ([facility]) Metformin hydrochloride 500 MG Oral Tablet Metformin H Cl 500 MG Metformin HCl 500 MG 07/22/2019 12:00:00 AM EST active 1 tablet with a meal eCW1 ([facility]) Metformin hydrochloride 500 MG Oral Tablet Metformin H Cl 500 MG Metformin HCl 500 MG 07/22/2019 12:00:00 AM EST 1.0 {tablet_with_a_meal} active Metformin HCl 500 MG eCW1 ([facility]) Metformin hydrochloride 500 MG Oral Tablet Metformin H Cl 500 MG Metformin HCl 500 MG 07/22/2019 12:00:00 AM EST 1.0 {tablet_with_a_meal} active Metformin HCl 500 MG eCW1 ([facility]) Levothyroxine Sodium 0.025 MG Oral Tablet Levothyroxin e Sodium 25 MCG Levothyroxine Sodium 25 MCG 07/22/2019 12:00:00 AM EST active Levothyroxine Sodium 25 MCG eCW1 ([facility]) Levothyroxine Sodium 0.025 MG Oral Tablet Levothyroxin e Sodium 25 MCG Levothyroxine Sodium 25 MCG 07/22/2019 12:00:00 AM EST active Levothyroxine Sodium 25 MCG eCW1 ([facility]) Metformin hydrochloride 500 MG Oral Tablet Metformin H Cl 500 MG Metformin HCl 500 MG 07/22/2019 12:00:00 AM EST 1.0 {tablet_with_a_meal} active Metformin HCl 500 MG eCW1 ([facility]) Metformin hydrochloride 500 MG Oral Tablet Metformin H Cl 500 MG Metformin HCl 500 MG 07/22/2019 12:00:00 AM EST 1.0 {tablet_with_a_meal} active Metformin HCl 500 MG [facility]CW1 [facility] Levothyroxine Sodium 0.025 MG Oral Tablet Levothyroxin e Sodium 25 MCG Levothyroxine Sodium 25 MCG 07/22/2019 12:00:00 AM EST active 1 tablet in the morning on an empty stomach eCW1 ([facility]) Metformin hydrochloride 500 MG Oral Tablet Metformin H Cl 500 MG Metformin HCl 500 MG 07/22/2019 12:00:00 AM EST 1.0 {tablet_with_a_meal} active Metformin HCl 500 MG eCW1 ([facility]) Levothyroxine Sodium 0.025 MG Oral Tablet Levothyroxin e Sodium 25 MCG Levothyroxine Sodium 25 MCG 07/22/2019 12:00:00 AM EST active Levothyroxine Sodium 25 MCG eCW1 ([facility]) Levothyroxine Sodium 0.025 MG Oral Tablet Levothyroxin e Sodium 25 MCG Levothyroxine Sodium 25 MCG 07/22/2019 12:00:00 AM EST active Levothyroxine Sodium 25 MCG eCW1 ([facility]) Metformin hydrochloride 500 MG Oral Tablet Metformin H Cl 500 MG Metformin HCl 500 MG 07/22/2019 12:00:00 AM EST 1.0 {tablet_with_a_meal} active Metformin HCl 500 MG eCW1 ([facility]) Levothyroxine Sodium 0.025 MG Oral Tablet Levothyroxin e Sodium 25 MCG Levothyroxine Sodium 25 MCG 07/22/2019 12:00:00 AM EST active 1 tablet in the morning on an empty stomach eCW1 ([facility]) Metformin hydrochloride 500 MG Oral Tablet Metformin H Cl 500 MG Metformin HCl 500 MG 07/22/2019 12:00:00 AM EST active 1 tablet with a meal eCW1 ([facility]) Levothyroxine Sodium 0.025 MG Oral Tablet Levothyroxin e Sodium 25 MCG Levothyroxine Sodium 25 MCG 07/22/2019 12:00:00 AM EST active Levothyroxine Sodium 25 MCG eCW1 ([facility]) Levothyroxine Sodium 0.025 MG Oral Tablet Levothyroxin e Sodium 25 MCG Levothyroxine Sodium 25 MCG 07/22/2019 12:00:00 AM EST active Levothyroxine Sodium 25 MCG eCW1 ([facility]) Metformin hydrochloride 500 MG Oral Tablet Metformin H Cl 500 MG Metformin HCl 500 MG 07/22/2019 12:00:00 AM EST active 1 tablet with a meal eCW1 ([facility]) Metformin hydrochloride 500 MG Oral Tablet Metformin H Cl 500 MG Metformin HCl 500 MG 07/22/2019 12:00:00 AM EST 1.0 {tablet_with_a_meal} active Metformin HCl 500 MG eCW1 ([facility]) Metformin hydrochloride 500 MG Oral Tablet Metformin H Cl 500 MG Metformin HCl 500 MG 07/22/2019 12:00:00 AM EST active 1 tablet with a meal eCW1 ([facility]) Vitamin D3 50 MCG (2000 UT) Vitamin D3 50 MCG (2000 UT) 07/02 12:00:00 AM EST 1.0 {tablet} active Vitamin D3 50 MCG (1999 UT) eCW1 ([facility]) Vitamin D3 50 MCG (1999 UT) Vitamin D3 50 MCG (2000 UT) 07/02 12:00:00 AM EST active 1 tablet eCW1 ([facility]) Vitamin D3 50 MCG (1999 UT) Vitamin D3 50 MCG (1999 UT) 07/02 12:00:00 AM EST 1.0 {tablet} active Vitamin D3 50 MCG (2000 UT) eCW1 ([facility]) Vitamin D3 50 MCG (1999 UT) Vitamin D3 50 MCG (2000 UT) 07/02 12:00:00 AM EST active 1 tablet eCW1 ([facility]) Vitamin D3 50 MCG (1999 UT) Vitamin D3 50 MCG (1999 UT) 07/02 12:00:00 AM EST 1.0 {tablet} active Vitamin D3 50 MCG (1999 UT) eCW1 ([facility]) Vitamin D3 50 MCG (1999 UT) Vitamin D3 50 MCG (1999 UT) 07/02 12:00:00 AM EST 1.0 {tablet} active Vitamin D3 50 MCG (1999 UT) eCW1 ([facility]) Vitamin D3 50 MCG (1999 UT) Vitamin D3 50 MCG (1999 UT) 07/02 12:00:00 AM EST active 1 tablet eCW1 ([facility]) Vitamin D3 50 MCG (1999 UT) Vitamin D3 50 MCG (1999 UT) 07/02 12:00:00 AM EST 1.0 {tablet} active Vitamin D3 50 MCG (1999 UT) eCW1 ([facility]) Vitamin D3 50 MCG (1999 UT) Vitamin D3 50 MCG (1999 UT) 07/02 12:00:00 AM EST active 1 tablet eCW1 ([facility]) Vitamin D3 50 MCG (1999 UT) Vitamin D3 50 MCG (1999 UT) 07/02 12:00:00 AM EST 1.0 {tablet} active Vitamin D3 50 MCG (1999 UT) eCW1 ([facility]) Vitamin D3 50 MCG (1999 UT) Vitamin D3 50 MCG (1999 UT) 07/02 12:00:00 AM EST 1.0 {tablet} active Vitamin D3 50 MCG (1999 UT) eCW1 ([facility]) Acetaminophen 325 MG / Oxycodone Hydroch loride 7.5 MG Oral Tablet Oxycodone- Acetaminophen 7.5-325 MG Oxycodone-Acetaminophen 7.5-325 MG 07/05/2019 12:00:00 AM EST active 1 tablet as neede d eCW1 ([facility]) Acetaminophen 325 MG / Oxycodone Hydroch loride 7.5 MG Oral Tablet Oxycodone- Acetaminophen 7.5-325 MG Oxycodone-Acetaminophen 7.5-325 MG 07/05/2019 12:00:00 AM EST active 1 tablet as neede d eCW1 ([facility]) Acetaminophen 325 MG / Oxycodone Hydroch loride 7.5 MG Oral Tablet Oxycodone- Acetaminophen 7.5-325 MG Oxycodone-Acetaminophen 7.5-325 MG 06/08/2019 12:00:00 AM EST active 1 tablet as neede d eCW1 ([facility]) Acetaminophen 325 MG / Oxycodone Hydroch loride 7.5 MG Oral Tablet Oxycodone- Acetaminophen 7.5-325 MG Oxycodone-Acetaminophen 7.5-325 MG 06/08/2019 12:00:00 AM EST active 1 tablet as neede d eCW1 ([facility]) 4 mg 05/21/2019 12:00:00 AM EST tablet,disintegrating 1 5 DISSOLVE ONE TABLET ON TONGUE EVERY 8 HOURS NEEDED DISSOLVE ONE TABLET ON TONGUE EVERY 8 HO URS NEEDED SOLD: 05/31/2019 [facility] Hydrochlorothiazide 25 MG Oral Tablet hy droCHLOROthiazide 25 MG Oral Tablet (HYDRODIURIL) hydroCHLOROthiazide 25 MG Oral Tablet (HYDRODIURIL) 25 mg Oral aborted Take 25 mg by mouth daily [facility] Medication administered onsite Acetaminophen 325 MG / Oxycodone Hydroch loride 7.5 MG Oral Tablet oxyCODONE- Acetaminophen 7.5-325 MG Oral Tablet (Percocet) oxyCODONE-Acetaminophen 7.5-325 MG Oral Tablet (Percocet) 1 {tbl} Oral aborted Take 1 tablet by mouth every 8 (eight) hours as needed for PainMax daily dose of 3 tabs [facility] Medication administered onsite gabapentin 600 MG Oral Tablet Gabapentin 600 MG Oral T ablet (NEURONTIN) Gabapentin 600 MG Oral Tablet (NEURONTIN) 600 mg Oral aborted Take 600 mg by mouth Three times daily [facility] Medication administered onsite Lisinopril 10 MG Oral Tablet Lisinopril 10 MG Oral Tab let (ZESTRIL) Lisinopril 10 MG Oral Tablet (ZESTRIL) 10 mg Oral aborted Take 10 mg by mouth daily [facility] Medication administered onsite Atenolol 25 MG Oral Tablet Atenolol 25 MG Oral Tablet (TENORMIN) Atenolol 25 MG Oral Tablet (TENORMIN) 25 mg Oral aborted T jojo 25 mg by mouth daily [facility]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 12/05/2019 11:41 AM EDT 12/05/2019 03:41:00 PM [facility] GLUCOSE QUANTITATIVE BLOOD XCPT REAGENT STRIP POCT GLUCOSE, GEE MORALES Routine 12/05/2019 8:03 AM EDT 12/05/2019 12:03:00 PM [facility] PHOSPHORUS INORGANIC PHOSPHORUS LEVEL Routine 12/05/2019 5:08 AM E DT 12/05/2019 09:08:00 AM [facility] MAGNESIUM MAGNESIUM LEVEL Routine 12/05/2019 5:08 AM EDT 12/05/2019 09:08:00 AM [facility] GLUCOSE QUANTITATIVE BLOOD XCPT REAGENT STRIP POCT GLUCOSE, GEE MORALES Routine 12/05/2019 5:01 AM EDT 12/05/2019 09:01:00 AM [facility] GLUCOSE QUANTITATIVE BLOOD XCPT REAGENT STRIP POCT GLUCOSE, GEE MORALES Routine 12/05/2019 12:52 AM EDT 12/05/2019 04:52:00 AM [facility] GLUCOSE QUANTITATIVE BLOOD XCPT REAGENT STRIP POCT GLUCOSE, GEE MORALES Routine 12/04/2019 8:29 PM EDT 12/05/2019 12:29:00 AM [facility] GLUCOSE QUANTITATIVE BLOOD XCPT REAGENT STRIP POCT GLUCOSE, GEE MORALES Routine 12/04/2019 4:31 PM EDT 12/04/2019 08:31:00 PM [facility] GLUCOSE QUANTITATIVE BLOOD XCPT REAGENT STRIP POCT GLUCOSE, GEE MORALES Routine 12/04/2019 12:27 PM EDT 12/04/2019 04:27:00 PM [facility] GLUCOSE QUANTITATIVE BLOOD XCPT REAGENT STRIP POCT GLUCOSE, GEE MORALES Routine 12/04/2019 8:53 AM EDT 12/04/2019 12:53:00 PM [facility] GLUCOSE QUANTITATIVE BLOOD XCPT REAGENT STRIP POCT GLUCOSE, GEE MORALES Routine 12/04/2019 4:41 AM EDT 12/04/2019 08:41:00 AM [facility] PHOSPHORUS INORGANIC PHOSPHORUS LEVEL Routine 12/04/2019 4:35 AM E DT 12/04/2019 08:35:00 AM [facility] MAGNESIUM MAGNESIUM LEVEL Routine 12/04/2019 4:35 AM EDT 12/04/2019 08:35:00 AM [facility] GLUCOSE QUANTITATIVE BLOOD XCPT REAGENT STRIP POCT GLUCOSE, GEE MORALES Routine 12/04/2019 12:05 AM EDT 12/04/2019 04:05:00 AM [facility] GLUCOSE QUANTITATIVE BLOOD XCPT REAGENT STRIP POCT GLUCOSE, GEE MORALES Routine 12/03/2019 8:35 PM EDT 12/04/2019 12:35:00 AM [facility] GLUCOSE QUANTITATIVE BLOOD XCPT REAGENT STRIP POCT GLUCOSE, GEE MORALES Routine 12/03/2019 8:07 PM EDT 12/04/2019 12:07:00 AM [facility] GLUCOSE QUANTITATIVE BLOOD XCPT REAGENT STRIP POCT GLUCOSE, GEE MORALES Routine 12/03/2019 4:18 PM EDT 12/03/2019 08:18:00 PM [facility] GLUCOSE QUANTITATIVE BLOOD XCPT REAGENT STRIP POCT GLUCOSE, GEE MORALES Routine 12/03/2019 12:25 PM EDT 12/03/2019 04:25:00 PM [facility] GLUCOSE QUANTITATIVE BLOOD XCPT REAGENT STRIP POCT GLUCOSE, GEE MORALES Routine 12/03/2019 8:07 AM EDT 12/03/2019 12:07:00 PM [facility] GLUCOSE QUANTITATIVE BLOOD XCPT REAGENT STRIP POCT GLUCOSE, GEE MORALES Routine 12/03/2019 4:32 AM EDT 12/03/2019 08:32:00 AM [facility] PHOSPHORUS INORGANIC PHOSPHORUS LEVEL Routine 12/03/2019 4:32 AM E DT 12/03/2019 08:32:00 AM [facility] MAGNESIUM MAGNESIUM LEVEL Routine 12/03/2019 4:32 AM EDT 12/03/2019 08:32:00 AM [facility] GLUCOSE QUANTITATIVE BLOOD XCPT REAGENT STRIP POCT GLUCOSE, GEE MORALES Routine 12/03/2019 2:11 AM EDT 12/03/2019 06:11:00 AM [facility] GLUCOSE QUANTITATIVE BLOOD XCPT REAGENT STRIP POCT GLUCOSE, GEE MORALES Routine 12/03/2019 1:08 AM EDT 12/03/2019 05:08:00 AM [facility] GLUCOSE QUANTITATIVE BLOOD XCPT REAGENT STRIP POCT GLUCOSE, GEE MORALES Routine 12/03/2019 12:08 AM EDT 12/03/2019 04:08:00 AM [facility] GLUCOSE QUANTITATIVE BLOOD XCPT REAGENT STRIP POCT GLUCOSE, GEE MORALES Routine 12/02/2019 8:38 PM EDT 12/03/2019 12:38:00 AM [facility] GLUCOSE QUANTITATIVE BLOOD XCPT REAGENT STRIP POCT GLUCOSE, GEE MORALES Routine 12/02/2019 4:38 PM EDT 12/02/2019 08:38:00 PM [facility] GLUCOSE QUANTITATIVE BLOOD XCPT REAGENT STRIP POCT GLUCOSE, GEE MORALES Routine 12/02/2019 11:54 AM EDT 12/02/2019 03:54:00 PM [facility] GLUCOSE QUANTITATIVE BLOOD XCPT REAGENT STRIP POCT GLUCOSE, GEE MORALES Routine 12/02/2019 8:46 AM EDT 12/02/2019 12:46:00 PM [facility] PHOSPHORUS INORGANIC PHOSPHORUS LEVEL Routine 12/02/2019 4:40 AM E DT 12/02/2019 08:40:00 AM [facility] MAGNESIUM MAGNESIUM LEVEL Routine 12/02/2019 4:40 AM EDT 12/02/2019 08:40:00 AM [facility] GLUCOSE QUANTITATIVE BLOOD XCPT REAGENT STRIP POCT GLUCOSE, GEE MORALES Routine 12/02/2019 4:31 AM EDT 12/02/2019 08:31:00 AM [facility] GLUCOSE QUANTITATIVE BLOOD XCPT REAGENT STRIP POCT GLUCOSE, GEE MORALES Routine 12/02/2019 12:01 AM EDT 12/02/2019 04:01:00 AM [facility] GLUCOSE QUANTITATIVE BLOOD XCPT REAGENT STRIP POCT GLUCOSE, GEE MORALES Routine 12/01/2019 8:23 PM EDT 12/02/2019 12:23:00 AM [facility] GLUCOSE QUANTITATIVE BLOOD XCPT REAGENT STRIP POCT GLUCOSE, GEE MORALES Routine 12/01/2019 4:19 PM EDT 12/01/2019 08:19:00 PM [facility] GLUCOSE QUANTITATIVE BLOOD XCPT REAGENT STRIP POCT GLUCOSE, GEE MORALES Routine 12/01/2019 10:39 AM EDT 12/01/2019 02:39:00 PM [facility] ELECTROMYOGRAPHY WITH NERVE CONDUCTION ELECTROMYOGRAPHY WIT H NERVE CONDUCTION Routine 12/01/2019 8:24 AM EDT 12/01/2019 12:24:29 PM [facility] GLUCOSE QUANTITATIVE BLOOD XCPT REAGENT STRIP POCT GLUCOSEGEE Routine 12/01/2019 3:52 AM EDT 12/01/2019 07:52:00 AM [facility] PHOSPHORUS INORGANIC PHOSPHORUS LEVEL Routine 12/01/2019 3:49 AM E DT 12/01/2019 07:49:00 AM [facility] MAGNESIUM MAGNESIUM LEVEL Routine 12/01/2019 3:49 AM EDT 12/01/2019 07:49:00 AM [facility] BASIC METABOLIC PANEL CALCIUM TOTAL BASIC METABOLIC PANEL Routi ne 12/01/2019 3:49 AM EDT 12/01/2019 07:49:00 AM [facility] GLUCOSE QUANTITATIVE BLOOD XCPT REAGENT STRIP POCT GLUCOSE, GEE MORALES Routine 12/01/2019 12:02 AM EDT 12/01/2019 04:02:00 AM [facility] GLUCOSE QUANTITATIVE BLOOD XCPT REAGENT STRIP POCT GLUCOSEGEE Routine 11/30/2019 7:36 PM EDT 11/30/2019 11:36:00 PM [facility] XR ABDOMEN AP ABD SUPINE ONLY [id number] [place] [id number] Urgent 11/30/2019 6:30 PM EDT 11/30/2019 10:30:00 PM [facility] XR ABDOMEN AP ABD SUPINE ONLY [id number] XR ABDOMEN AP ABD SUPIN E ONLY [id number] Routine 11/30/2019 3:50 PM EDT 11/30/2019 07:50:00 PM [facility] GLUCOSE QUANTITATIVE BLOOD XCPT REAGENT STRIP POCT GLUCOSE, DOC KEElsa Routine 11/30/2019 3:38 PM EDT 11/30/2019 07:38:00 PM [facility] GLUCOSE QUANTITATIVE BLOOD XCPT REAGENT STRIP POCT GLUCOSE, DOC CARMEN Routine 11/30/2019 11:49 AM EDT 11/30/2019 03:49:00 PM [facility] TRACHEOSTOMY, PLANNED (SEP PROC) TRACHEOSTOMY, PLANNED (SEP PRO C) 11/30/2019 9:13 AM EDT Bilateral vocal cord paralysis 11/30/2019 01:13:00 PM EDT - 11/30/2019 03:12:00 PM [facility] GLUCOSE QUANTITATIVE BLOOD XCPT REAGENT STRIP POCT GLUCOSE, DOC CARMEN Routine 11/30/2019 8:09 AM EDT 11/30/2019 12:09:00 PM [facility] CLOTILDE VIDEO CLOTILDE VIDEO Routine 11/30/2019 7:39 AM EDT 11/30/2019 11:39:29 AM [facility] COVID-19 PCR COVID-19 PCR Routine 11/30/2019 7:33 AM EDT 11/30/2019 11:33:00 AM [facility] RESPIRATORY PANEL RESPIRATORY PANEL Routine 11/30/2019 7:33 AM EDT 11/30/2019 11:33:00 AM [facility] PHOSPHORUS INORGANIC PHOSPHORUS LEVEL Routine 11/30/2019 4:54 AM E DT 11/30/2019 08:54:00 AM [facility] MAGNESIUM MAGNESIUM LEVEL Routine 11/30/2019 4:54 AM EDT 11/30/2019 08:54:00 AM [facility] GLUCOSE QUANTITATIVE BLOOD XCPT REAGENT STRIP POCT GLUCOSE, DOC CARMEN Routine 11/30/2019 4:42 AM EDT 11/30/2019 08:42:00 AM [facility] GLUCOSE QUANTITATIVE BLOOD XCPT REAGENT STRIP POCT GLUCOSEGEE Routine 11/30/2019 12:40 AM EDT 11/30/2019 04:40:00 AM [facility] GLUCOSE QUANTITATIVE BLOOD XCPT REAGENT STRIP POCT GLUCOSEGEE Routine 11/29/2019 7:45 PM EDT 11/29/2019 11:45:00 PM [facility] GLUCOSE QUANTITATIVE BLOOD XCPT REAGENT STRIP POCT GLUCOSEGEE Routine 11/29/2019 4:09 PM EDT 11/29/2019 08:09:00 PM [facility] GLUCOSE QUANTITATIVE BLOOD XCPT REAGENT STRIP POCT GLUCOSE, GEE MORALES Routine 11/29/2019 11:43 AM EDT 11/29/2019 03:43:00 PM [facility] RADEX SPINE THORACIC 2 VIEWS XR THORACIC SPINE AP AND LATERAL U rgent 11/29/2019 11:15 AM EDT 11/29/2019 03:15:32 PM EDT [facility] GLUCOSE QUANTITATIVE BLOOD XCPT REAGENT STRIP POCT GLUCOSEGEE Routine 11/29/2019 8:09 AM EDT 11/29/2019 12:09:00 PM [facility] MRI SPINAL CANAL CERVICAL W/O CONTRAST MATRL MR CERVI BEVERLY SPINE WITHOUT CONTRAST [id number] Urgent 11/29/2019 6:33 AM EDT 11/29/2019 10:33 :06 AM [facility] MRI BRAIN BRAIN STEM W/O CONTRAST MATERIAL MR BRAIN WITHOUT CONTRAST [id number] Routine 11/29/2019 6:33 AM EDT 11/29/2019 10:33:06 AM [facility] MRI SPINAL CANAL THORACIC W/O CONTRAST MATRL MR THORA CIC SPINE WITHOUT CONTRAST [id number] Urgent 11/29/2019 6:32 AM EDT 11/29/2019 10:32 :48 AM [facility] GLUCOSE QUANTITATIVE BLOOD XCPT REAGENT STRIP POCT GLUCOSEGEE Routine 11/29/2019 4:57 AM EDT 11/29/2019 08:57:00 AM [facility] BLOOD COUNT COMPLETE AUTOMATED CBC Routine 11/29/2019 3:29 A M EDT 11/29/2019 07:29:00 AM [facility] PHOSPHORUS INORGANIC PHOSPHORUS LEVEL Routine 11/29/2019 3:29 AM E DT 11/29/2019 07:29:00 AM [facility] MAGNESIUM MAGNESIUM LEVEL Routine 11/29/2019 3:29 AM EDT 11/29/2019 07:29:00 AM [facility] GLUCOSE QUANTITATIVE BLOOD XCPT REAGENT STRIP POCT GLUCOSE, GEE MORALES Routine 11/29/2019 12:54 AM EDT 11/29/2019 04:54:00 AM [facility] GLUCOSE QUANTITATIVE BLOOD XCPT REAGENT STRIP POCT GLUCOSE, GEE MORALES Routine 11/28/2019 9:45 PM EDT 11/29/2019 01:45:00 AM [facility] GLUCOSE QUANTITATIVE BLOOD XCPT REAGENT STRIP POCT GLUCOSE, GEE MORALES Routine 11/28/2019 8:17 PM EDT 11/29/2019 12:17:00 AM [facility] GLUCOSE QUANTITATIVE BLOOD XCPT REAGENT STRIP POCT GLUCOSE, GEE MORALES Routine 11/28/2019 4:27 PM EDT 11/28/2019 08:27:00 PM [facility] GLUCOSE QUANTITATIVE BLOOD XCPT REAGENT STRIP POCT GLUCOSE, GEE MORALES Routine 11/28/2019 11:40 AM EDT 11/28/2019 03:40:00 PM [facility] GLUCOSE QUANTITATIVE BLOOD XCPT REAGENT STRIP POCT GLUCOSE, GEE MORALES Routine 11/28/2019 7:59 AM EDT 11/28/2019 11:59:00 AM [facility] PHOSPHORUS INORGANIC PHOSPHORUS LEVEL Routine 11/28/2019 4:40 AM E DT 11/28/2019 08:40:00 AM [facility] MAGNESIUM MAGNESIUM LEVEL Routine 11/28/2019 4:40 AM EDT 11/28/2019 08:40:00 AM [facility] GLUCOSE QUANTITATIVE BLOOD XCPT REAGENT STRIP POCT GLUCOSE, GEE MORALES Routine 11/28/2019 4:13 AM EDT 11/28/2019 08:13:00 AM [facility] GLUCOSE QUANTITATIVE BLOOD XCPT REAGENT STRIP POCT GLUCOSE, GEE MORALES Routine 11/28/2019 12:14 AM EDT 11/28/2019 04:14:00 AM [facility] GLUCOSE QUANTITATIVE BLOOD XCPT REAGENT STRIP POCT GLUCOSE, GEE MORALES Routine 11/27/2019 8:16 PM EDT 11/28/2019 12:16:00 AM [facility] GLUCOSE QUANTITATIVE BLOOD XCPT REAGENT STRIP POCT GLUCOSE, GEE MORALES Routine 11/27/2019 4:11 PM EDT 11/27/2019 08:11:00 PM [facility] GLUCOSE QUANTITATIVE BLOOD XCPT REAGENT STRIP POCT GLUCOSE, GEE MORALES Routine 11/27/2019 1:04 PM EDT 11/27/2019 05:04:00 PM [facility] GLUCOSE QUANTITATIVE BLOOD XCPT REAGENT STRIP POCT GLUCOSE, GEE MORALES Routine 11/27/2019 8:09 AM EDT 11/27/2019 12:09:00 PM [facility] PHOSPHORUS INORGANIC PHOSPHORUS LEVEL Routine 11/27/2019 4:36 AM E DT 11/27/2019 08:36:00 AM [facility] MAGNESIUM MAGNESIUM LEVEL Routine 11/27/2019 4:36 AM EDT 11/27/2019 08:36:00 AM [facility] CALCIUM IONIZED CALCIUM, IONIZED Routine 11/27/2019 4:36 AM EDT 11/27/2019 08:36:00 AM [facility] GLUCOSE QUANTITATIVE BLOOD XCPT REAGENT STRIP POCT GLUCOSE, GEE MORALES Routine 11/27/2019 4:07 AM EDT 11/27/2019 08:07:00 AM [facility] GLUCOSE QUANTITATIVE BLOOD XCPT REAGENT STRIP POCT GLUCOSE, GEE MORALES Routine 11/27/2019 12:00 AM EDT 11/27/2019 04:00:00 AM [facility] GLUCOSE QUANTITATIVE BLOOD XCPT REAGENT STRIP POCT GLUCOSE, GEE MORALES Routine 11/26/2019 8:02 PM EDT 11/27/2019 12:02:00 AM [facility] EKG 12-LEAD - CMAXX REPORT EKG 12-LEAD - CMAXX REPORT 11/26/2019 6:57 PM EDT 11/26/2019 10:57:13 PM EDT [facility] EKG 12-LEAD - CMAXX REPORT EKG 12-LEAD - CMAXX REPORT 11/26/2019 6:57 PM EDT 11/26/2019 10:57:13 PM T [facility] EKG 12-LEAD EKG 12-LEAD STAT 11/26/2019 6:57 PM EDT 11/26/2019 10:57:13 PM [facility] BLOOD COUNT COMPLETE AUTOMATED CBC STAT 11/26/2019 6:33 P M EDT 11/26/2019 10:33:00 PM [facility] PHOSPHORUS INORGANIC PHOSPHORUS LEVEL STAT 11/26/2019 6:33 PM E DT 11/26/2019 10:33:00 PM [facility] MAGNESIUM MAGNESIUM LEVEL STAT 11/26/2019 6:33 PM EDT 11/26/2019 10:33:00 PM [facility] COMPREHENSIVE METABOLIC PANEL COMPREHENSIVE METABOLIC PANEL STA T 11/26/2019 6:33 PM EDT 11/26/2019 10:33:00 PM EDT [facility] GLUCOSE QUANTITATIVE BLOOD XCPT REAGENT STRIP POCT GLUCOSE, GEE MORALES Routine 11/26/2019 4:13 PM EDT 11/26/2019 08:13:00 PM [facility] GLUCOSE QUANTITATIVE BLOOD XCPT REAGENT STRIP POCT GLUCOSE, GEE MORALES Routine 11/26/2019 12:35 PM EDT 11/26/2019 04:35:00 PM [facility] GLUCOSE QUANTITATIVE BLOOD XCPT REAGENT STRIP POCT GLUCOSE, GEE MORALES Routine 11/26/2019 8:13 AM EDT 11/26/2019 12:13:00 PM [facility] PHOSPHORUS INORGANIC PHOSPHORUS LEVEL Routine 11/26/2019 4:16 AM E DT 11/26/2019 08:16:00 AM [facility] MAGNESIUM MAGNESIUM LEVEL Routine 11/26/2019 4:16 AM EDT 11/26/2019 08:16:00 AM [facility] CALCIUM IONIZED CALCIUM, IONIZED Routine 11/26/2019 4:16 AM EDT 11/26/2019 08:16:00 AM [facility] GLUCOSE QUANTITATIVE BLOOD XCPT REAGENT STRIP POCT GLUCOSE, GEE MORALES Routine 11/26/2019 4:08 AM EDT 11/26/2019 08:08:00 AM [facility] GLUCOSE QUANTITATIVE BLOOD XCPT REAGENT STRIP POCT GLUCOSE, GEE MORALES Routine 11/26/2019 12:30 AM EDT 11/26/2019 04:30:00 AM [facility] GLUCOSE QUANTITATIVE BLOOD XCPT REAGENT STRIP POCT GLUCOSE, GEE MORALES Routine 11/25/2019 9:06 PM EDT 11/26/2019 01:06:00 AM [facility] GLUCOSE QUANTITATIVE BLOOD XCPT REAGENT STRIP POCT GLUCOSE, GEE MORALES Routine 11/25/2019 7:19 PM EDT 11/25/2019 11:19:00 PM [facility] GLUCOSE QUANTITATIVE BLOOD XCPT REAGENT STRIP POCT GLUCOSE, DOC KED Routine 11/25/2019 3:45 PM EDT 11/25/2019 07:45:00 PM [facility] GLUCOSE QUANTITATIVE BLOOD XCPT REAGENT STRIP POCT GLUCOSE, GEE MORALES Routine 11/25/2019 11:38 AM EDT 11/25/2019 03:38:00 PM [facility] HEPARIN ASSAY ANTI-XA LOW MOLECULAR WEIGHT HEPARIN LEVEL(ENOXA JOSE) Routine 11/25/2019 8:45 AM EDT 11/25/2019 12:45:00 PM [facility] GLUCOSE QUANTITATIVE BLOOD XCPT REAGENT STRIP POCT GLUCOSE, GEE MORALES Routine 11/25/2019 7:51 AM EDT 11/25/2019 11:51:00 AM [facility] GLUCOSE QUANTITATIVE BLOOD XCPT REAGENT STRIP POCT GLUCOSE, GEE MORALES Routine 11/25/2019 4:09 AM EDT 11/25/2019 08:09:00 AM [facility] POTASSIUM SERUM PLASMA/WHOLE BLOOD POTASSIUM Routine 11/25/2019 4:09 AM EDT 11/25/2019 08:09:[address] [facility] PHOSPHORUS INORGANIC PHOSPHORUS LEVEL Routine 11/25/2019 4:09 AM E DT 11/25/2019 08:09:00 AM [facility] MAGNESIUM MAGNESIUM LEVEL Routine 11/25/2019 4:09 AM EDT 11/25/2019 08:09:00 AM [facility] CALCIUM IONIZED CALCIUM, IONIZED Routine 11/25/2019 4:09 AM EDT 11/25/2019 08:09:00 AM [facility] GLUCOSE QUANTITATIVE BLOOD XCPT REAGENT STRIP POCT GLUCOSE, GEE MORALES Routine 11/25/2019 12:11 AM EDT 11/25/2019 04:11:00 AM [facility] GLUCOSE QUANTITATIVE BLOOD XCPT REAGENT STRIP POCT GLUCOSE, GEE MORALES Routine 11/24/2019 8:25 PM EDT 11/25/2019 12:25:00 AM [facility] GLUCOSE QUANTITATIVE BLOOD XCPT REAGENT STRIP POCT GLUCOSE, GEE MORALES Routine 11/24/2019 3:56 PM EDT 11/24/2019 07:56:00 PM [facility] GLUCOSE QUANTITATIVE BLOOD XCPT REAGENT STRIP POCT GLUCOSE, GEE MORALES Routine 11/24/2019 11:58 AM EDT 11/24/2019 03:58:00 PM [facility] GLUCOSE QUANTITATIVE BLOOD XCPT REAGENT STRIP POCT GLUCOSE, GEE KED Routine 11/24/2019 8:09 AM EDT 11/24/2019 12:09:00 PM [facility] GLUCOSE QUANTITATIVE BLOOD XCPT REAGENT STRIP POCT GLUCOSE, DOC KED Routine 11/24/2019 4:30 AM EDT 11/24/2019 08:30:00 AM [facility] BLOOD COUNT COMPLETE AUTO&AUTO DIFRNTL WBC COUNT CBC AND DIFFER ENTIAL Routine 11/24/2019 4:24 AM EDT 11/24/2019 08:24:00 AM [facility] PHOSPHORUS INORGANIC PHOSPHORUS LEVEL Routine 11/24/2019 4:24 AM E DT 11/24/2019 08:24:00 AM [facility] MAGNESIUM MAGNESIUM LEVEL Routine 11/24/2019 4:24 AM EDT 11/24/2019 08:24:00 AM [facility] CALCIUM IONIZED CALCIUM, IONIZED Routine 11/24/2019 4:24 AM EDT 11/24/2019 08:24:00 AM [facility] COMPREHENSIVE METABOLIC PANEL COMPREHENSIVE METABOLIC PANEL Rou luis 11/24/2019 4:24 AM EDT 11/24/2019 [facility]IVE BLOOD XCPT REAGENT STRIP POCT GLUCOSE, GEE PYLED Routine 11/23/2019 11:39 PM EDT 11/24/2019 03:39:00 AM [facility] GLUCOSE QUANTITATIVE BLOOD XCPT REAGENT STRIP POCT GLUCOSE, GEE PYLED Routine 11/23/2019 7:45 PM EDT 11/23/2019 11:45:00 PM [facility] GLUCOSE QUANTITATIVE BLOOD XCPT REAGENT STRIP POCT GLUCOSE, GEE PYLED Routine 11/23/2019 3:36 PM EDT 11/23/2019 07:36:00 PM [facility] GLUCOSE QUANTITATIVE BLOOD XCPT REAGENT STRIP POCT GLUCOSE, GEE PYLED Routine 11/23/2019 12:01 PM EDT 11/23/2019 04:01:00 PM [facility] GLUCOSE QUANTITATIVE BLOOD XCPT REAGENT STRIP POCT GLUCOSE, GEE PYLED Routine 11/23/2019 7:56 AM EDT 11/23/2019 11:56:00 AM [facility] BLOOD COUNT COMPLETE AUTO&AUTO DIFRNTL WBC COUNT CBC AND DIFFER ENTIAL Routine 11/23/2019 4:16 AM EDT 11/23/2019 08:16:00 AM [facility] PHOSPHORUS INORGANIC PHOSPHORUS LEVEL Routine 11/23/2019 4:16 AM E DT 11/23/2019 08:16:00 AM [facility] MAGNESIUM MAGNESIUM LEVEL Routine 11/23/2019 4:16 AM EDT 11/23/2019 08:16:00 AM [facility] CALCIUM IONIZED CALCIUM, IONIZED Routine 11/23/2019 4:16 AM EDT 11/23/2019 08:16:00 AM [facility] BASIC METABOLIC PANEL CALCIUM TOTAL BASIC METABOLIC PANEL Routi ne 11/23/2019 4:16 AM EDT 11/23/2019 08:16:00 AM EDT [facility] GLUCOSE QUANTITATIVE BLOOD XCPT REAGENT STRIP POCT GLUCOSE, DOC KED Routine 11/23/2019 3:59 AM EDT 11/23/2019 07:59:00 AM [facility] GLUCOSE QUANTITATIVE BLOOD XCPT REAGENT STRIP POCT GLUCOSE, DOC KED Routine 11/23/2019 12:36 AM EDT 11/23/2019 04:36:00 AM [facility] GLUCOSE QUANTITATIVE BLOOD XCPT REAGENT STRIP POCT GLUCOSE, DOC KED Routine 11/22/2019 8:34 PM EDT 11/23/2019 12:34:00 AM [facility] GLUCOSE QUANTITATIVE BLOOD XCPT REAGENT STRIP POCT GLUCOSE, DOC KED Routine 11/22/2019 4:00 PM EDT 11/22/2019 08:00:00 PM [facility] GLUCOSE QUANTITATIVE BLOOD XCPT REAGENT STRIP POCT GLUCOSE, DOC KED Routine 11/22/2019 11:50 AM EDT 11/22/2019 03:50:00 PM [facility] EKG 12-LEAD - CMAXX REPORT EKG 12-LEAD - CMAXX REPORT 11/22/2019 10:59 AM EDT 11/22/2019 02:59:40 PM EDT [facility] EKG 12-LEAD - CMAXX REPORT EKG 12-LEAD - CMAXX REPORT 11/22/2019 10:59 AM EDT 11/22/2019 02:59:40 PM [facility] EKG 12-LEAD EKG 12-LEAD Routine 11/22/2019 10:59 AM EDT 11/22/2019 02:59:40 PM [facility] TROPONIN QUANTITATIVE TROPONIN T Routine 11/22/2019 10:52 AM EDT 11/22/2019 02:52:00 PM [facility] GLUCOSE QUANTITATIVE BLOOD XCPT REAGENT STRIP POCT GLUCOSE, GEE MORALES Routine 11/22/2019 8:00 AM EDT 11/22/2019 12:00:00 PM [facility] BLOOD COUNT COMPLETE AUTO&AUTO DIFRNTL WBC COUNT CBC AND DIFFER ENTIAL Routine 11/22/2019 4:56 AM EDT 11/22/2019 08:56:00 AM [facility] PHOSPHORUS INORGANIC PHOSPHORUS LEVEL Routine 11/22/2019 4:56 AM E DT 11/22/2019 08:56:00 AM [facility] MAGNESIUM MAGNESIUM LEVEL Routine 11/22/2019 4:56 AM EDT 11/22/2019 08:56:00 AM [facility] CALCIUM IONIZED CALCIUM, IONIZED Routine 11/22/2019 4:56 AM EDT 11/22/2019 08:56:00 AM [facility] BASIC METABOLIC PANEL CALCIUM TOTAL BASIC METABOLIC PANEL Routi ne 11/22/2019 4:56 AM EDT 11/22/2019 08:56:00 AM EDT [facility] GLUCOSE QUANTITATIVE BLOOD XCPT REAGENT STRIP POCT GLUCOSE, GEE MORALES Routine 11/22/2019 4:49 AM EDT 11/22/2019 08:49:00 AM [facility] GLUCOSE QUANTITATIVE BLOOD XCPT REAGENT STRIP POCT GLUCOSE, GEE MORALES Routine 11/22/2019 12:16 AM EDT 11/22/2019 04:16:00 AM [facility] GLUCOSE QUANTITATIVE BLOOD XCPT REAGENT STRIP POCT GLUCOSE, GEE KED Routine 11/21/2019 8:28 PM EDT 11/22/2019 12:28:00 AM [facility] GLUCOSE QUANTITATIVE BLOOD XCPT REAGENT STRIP POCT GLUCOSE, GEE KED Routine 11/21/2019 4:10 PM EDT 11/21/2019 08:10:00 PM [facility] XR CHEST FRONTAL ONLY [id number] XR CHEST FRONTAL ONLY [id number] STAT 11/21/2019 12:16 PM EDT 11/21/2019 [facility]:16[facility] [facility]ANTITATIVE BLOOD XCPT REAGENT STRIP POCT GLUCOSE, GEE PYLED Routine 11/21/2019 11:47 AM EDT 11/21/2019 03:47:00 PM [facility] GLUCOSE QUANTITATIVE BLOOD XCPT REAGENT STRIP POCT GLUCOSE, DOC KED Routine 11/21/2019 8:29 AM EDT 11/21/2019 12:29:00 PM [facility] BLOOD COUNT COMPLETE AUTO&AUTO DIFRNTL WBC COUNT CBC AND DIFFER ENTIAL Routine 11/21/2019 4:50 AM EDT 11/21/2019 08:50:00 AM [facility] PHOSPHORUS INORGANIC PHOSPHORUS LEVEL Routine 11/21/2019 4:50 AM E DT 11/21/2019 08:50:00 AM [facility] MAGNESIUM MAGNESIUM LEVEL Routine 11/21/2019 4:50 AM EDT 11/21/2019 08:50:00 AM [facility] CALCIUM IONIZED CALCIUM, IONIZED Routine 11/21/2019 4:50 AM EDT 11/21/2019 08:50:00 AM [facility] BASIC METABOLIC PANEL CALCIUM TOTAL BASIC METABOLIC PANEL Routi ne 11/21/2019 4:50 AM EDT 11/21/2019 08:50:00 AM [facility] GLUCOSE QUANTITATIVE BLOOD XCPT REAGENT STRIP POCT GLUCOSE, DOC KED Routine 11/21/2019 4:03 AM EDT 11/21/2019 08:03:00 AM [facility] GLUCOSE QUANTITATIVE BLOOD XCPT REAGENT STRIP POCT GLUCOSE, DOC KED Routine 11/21/2019 12:11 AM EDT 11/21/2019 04:11:00 AM [facility] GLUCOSE QUANTITATIVE BLOOD XCPT REAGENT STRIP POCT GLUCOSE, DOC KED Routine 11/20/2019 8:06 PM EDT 11/21/2019 12:06:00 AM [facility] GLUCOSE QUANTITATIVE BLOOD XCPT REAGENT STRIP POCT GLUCOSE, DOC KED Routine 11/20/2019 4:44 PM EDT 11/20/2019 08:44:00 PM [facility] GLUCOSE QUANTITATIVE BLOOD XCPT REAGENT STRIP POCT GLUCOSE, DOC KED Routine 11/20/2019 11:54 AM EDT 11/20/2019 03:54:00 PM [facility] BLOOD COUNT COMPLETE AUTO&AUTO DIFRNTL WBC COUNT CBC AND DIFFER ENTIAL STAT 11/20/2019 10:18 AM EDT 11/20/2019 02:18:00 PM [facility] GLUCOSE QUANTITATIVE BLOOD XCPT REAGENT STRIP POCT GLUCOSE, DOC KED Routine 11/20/2019 8:04 AM EDT 11/20/2019 12:04:00 PM [facility] PHOSPHORUS INORGANIC PHOSPHORUS LEVEL Routine 11/20/2019 4:08 AM E DT 11/20/2019 08:08:00 AM [facility] MAGNESIUM MAGNESIUM LEVEL Routine 11/20/2019 4:08 AM EDT 11/20/2019 08:08:00 AM [facility] CALCIUM IONIZED CALCIUM, IONIZED Routine 11/20/2019 4:08 AM EDT 11/20/2019 08:08:00 AM [facility] BASIC METABOLIC PANEL CALCIUM TOTAL BASIC METABOLIC PANEL Routi ne 11/20/2019 4:08 AM EDT 11/20/2019 08:08:00 AM EDT [facility] GLUCOSE QUANTITATIVE BLOOD XCPT REAGENT STRIP POCT GLUCOSE, DOC KED Routine 11/20/2019 4:02 AM EDT 11/20/2019 08:02:00 AM [facility] GLUCOSE QUANTITATIVE BLOOD XCPT REAGENT STRIP POCT GLUCOSE, DOC KED Routine 11/19/2019 11:34 PM EDT 11/20/2019 03:34:00 AM [facility] GLUCOSE QUANTITATIVE BLOOD XCPT REAGENT STRIP POCT GLUCOSE, DOC KED Routine 11/19/2019 9:52 PM EDT 11/20/2019 01:52:00 AM [facility] GLUCOSE QUANTITATIVE BLOOD XCPT REAGENT STRIP POCT GLUCOSE, GEE KED Routine 11/19/2019 7:49 PM EDT 11/19/2019 11:49:00 PM [facility] GLUCOSE QUANTITATIVE BLOOD XCPT REAGENT STRIP POCT GLUCOSE, DOC KED Routine 11/19/2019 3:52 PM EDT 11/19/2019 07:52:00 PM [facility] GLUCOSE QUANTITATIVE BLOOD XCPT REAGENT STRIP POCT GLUCOSE, DOC KED Routine 11/19/2019 12:02 PM EDT 11/19/2019 04:02:00 PM [facility] GLUCOSE QUANTITATIVE BLOOD XCPT REAGENT STRIP POCT GLUCOSE, DOC KED Routine 11/19/2019 8:10 AM EDT 11/19/2019 12:10:00 PM [facility] BLOOD COUNT COMPLETE AUTO&AUTO DIFRNTL WBC COUNT CBC AND DIFFER ENTIAL Routine 11/19/2019 4:38 AM EDT 11/19/2019 08:38:00 AM [facility] PHOSPHORUS INORGANIC PHOSPHORUS LEVEL Routine 11/19/2019 4:38 AM E DT 11/19/2019 08:38:00 AM [facility] MAGNESIUM MAGNESIUM LEVEL Routine 11/19/2019 4:38 AM EDT 11/19/2019 08:38:00 AM [facility] CALCIUM IONIZED CALCIUM, IONIZED Routine 11/19/2019 4:38 AM EDT 11/19/2019 08:38:00 AM [facility] GLUCOSE QUANTITATIVE BLOOD XCPT REAGENT STRIP POCT GLUCOSE, DOC LASHANDAD Routine 11/19/2019 3:57 AM EDT 11/19/2019 07:57:00 AM [facility] GLUCOSE QUANTITATIVE BLOOD XCPT REAGENT STRIP POCT GLUCOSE, DOC CARMEN Routine 11/19/2019 12:14 AM EDT 11/19/2019 04:14:00 AM [facility] GLUCOSE QUANTITATIVE BLOOD XCPT REAGENT STRIP POCT GLUCOSE, GEE MORALES Routine 11/18/2019 10:16 PM EDT 11/19/2019 02:16:00 AM [facility] GLUCOSE QUANTITATIVE BLOOD XCPT REAGENT STRIP POCT GLUCOSE, DOC CARMEN Routine 11/18/2019 8:12 PM EDT 11/19/2019 12:12:00 AM [facility] GLUCOSE QUANTITATIVE BLOOD XCPT REAGENT STRIP POCT GLUCOSE, GEE MORALES Routine 11/18/2019 4:03 PM EDT 11/18/2019 08:03:00 PM [facility] GLUCOSE QUANTITATIVE BLOOD XCPT REAGENT STRIP POCT GLUCOSE, GEE MORALES Routine 11/18/2019 12:12 PM EDT 11/18/2019 04:12:00 PM [facility] EKG 12-LEAD - CMAXX REPORT EKG 12-LEAD - CMAXX REPORT 11/18/2019 10:04 AM EDT 11/18/2019 02:04:53 PM EDT [facility] EKG 12-LEAD - CMAXX REPORT EKG 12-LEAD - CMAXX REPORT 11/18/2019 10:04 AM EDT 11/18/2019 02:04:53 PM EDT [facility] EKG 12-LEAD EKG 12-LEAD STAT 11/18/2019 10:04 AM EDT 11/18/2019 02:04:53 PM [facility] GLUCOSE QUANTITATIVE BLOOD XCPT REAGENT STRIP POCT GLUCOSE, DOC LASHANDAD Routine 11/18/2019 8:42 AM EDT 11/18/2019 12:42:00 PM [facility] GLUCOSE QUANTITATIVE BLOOD XCPT REAGENT STRIP POCT GLUCOSE, DOC KED Routine 11/18/2019 4:08 AM EDT 11/18/2019 08:08:00 AM [facility] BLOOD COUNT COMPLETE AUTO&AUTO DIFRNTL WBC COUNT CBC AND DIFFER ENTIAL Routine 11/18/2019 2:35 AM EDT 11/18/2019 06:35:00 AM [facility] PHOSPHORUS INORGANIC PHOSPHORUS LEVEL Routine 11/18/2019 2:35 AM E DT 11/18/2019 06:35:00 AM [facility] MAGNESIUM MAGNESIUM LEVEL Routine 11/18/2019 2:35 AM EDT 11/18/2019 06:35:00 AM [facility] CALCIUM IONIZED CALCIUM, IONIZED Routine 11/18/2019 2:35 AM EDT 11/18/2019 06:35:00 AM [facility] BASIC METABOLIC PANEL CALCIUM TOTAL BASIC METABOLIC PANEL Routi ne 11/18/2019 2:35 AM EDT 11/18/2019 06:35:00 AM EDT [facility] GLUCOSE QUANTITATIVE BLOOD XCPT REAGENT STRIP POCT GLUCOSE, DOC KED Routine 11/17/2019 11:45 PM EDT 11/18/2019 03:45:00 AM [facility] GLUCOSE QUANTITATIVE BLOOD XCPT REAGENT STRIP POCT GLUCOSE, DOC KED Routine 11/17/2019 8:42 PM EDT 11/18/2019 12:42:00 AM [facility] GLUCOSE QUANTITATIVE BLOOD XCPT REAGENT STRIP POCT GLUCOSE, DOC KED Routine 11/17/2019 3:59 PM EDT 11/17/2019 07:59:00 PM [facility] GLUCOSE QUANTITATIVE BLOOD XCPT REAGENT STRIP POCT GLUCOSE, DOC KED Routine 11/17/2019 11:57 AM EDT 11/17/2019 03:57:00 PM [facility] GLUCOSE QUANTITATIVE BLOOD XCPT REAGENT STRIP POCT GLUCOSE, DOC KED Routine 11/17/2019 8:01 AM EDT 11/17/2019 12:01:00 PM [facility] XR ABDOMEN AP ABD SUPINE ONLY [id number] [place] [id number] Urgent 11/17/2019 6:51 AM EDT 11/17/2019 10:51:00 AM [facility] GLUCOSE QUANTITATIVE BLOOD XCPT REAGENT STRIP POCT GLUCOSE, DOC KEElsa Routine 11/17/2019 3:52 AM EDT 11/17/2019 07:52:00 AM [facility] BLOOD COUNT COMPLETE AUTO&AUTO DIFRNTL WBC COUNT CBC AND DIFFER ENTIAL Routine 11/17/2019 2:05 AM EDT 11/17/2019 06:05:00 AM [facility] PHOSPHORUS INORGANIC PHOSPHORUS LEVEL Routine 11/17/2019 2:05 AM E DT 11/17/2019 06:05:00 AM [facility] MAGNESIUM MAGNESIUM LEVEL Routine 11/17/2019 2:05 AM EDT 11/17/2019 06:05:00 AM [facility] CALCIUM IONIZED CALCIUM, IONIZED Routine 11/17/2019 2:05 AM EDT 11/17/2019 06:05:00 AM [facility] BASIC METABOLIC PANEL CALCIUM TOTAL BASIC METABOLIC PANEL Routi ne 11/17/2019 2:05 AM EDT 11/17/2019 06:05:00 AM EDT [facility] GLUCOSE QUANTITATIVE BLOOD XCPT REAGENT STRIP POCT GLUCOSE, DOC CARMEN Routine 11/16/2019 11:37 PM EDT 11/17/2019 03:37:00 AM [facility] GLUCOSE QUANTITATIVE BLOOD XCPT REAGENT STRIP POCT GLUCOSE, DOC KEElsa Routine 11/16/2019 7:49 PM EDT 11/16/2019 11:49:00 PM [facility] XR ABDOMEN AP ABD SUPINE ONLY [id number] XR ABDOMEN AP ABD SUPIN E ONLY [id number] Routine 11/16/2019 6:11 PM EDT 11/16/2019 10:11:00 PM [facility] GLUCOSE QUANTITATIVE BLOOD XCPT REAGENT STRIP POCT GLUCOSE, DOC KED Routine 11/16/2019 4:19 PM EDT 11/16/2019 08:19:00 PM [facility] XR ABDOMEN AP ABD SUPINE ONLY [id number] [place] [id number] STAT 11/16/2019 2:30 PM EDT 11/16/2019 06:30:08 PM [facility] GLUCOSE QUANTITATIVE BLOOD XCPT REAGENT STRIP POCT GLUCOSE, DOC KED Routine 11/16/2019 11:58 AM EDT 11/16/2019 03:58:00 PM [facility] BLOOD COUNT COMPLETE AUTOMATED CBC Routine 11/16/2019 10:04 A M EDT 11/16/2019 02:04:00 PM [facility] PHOSPHORUS INORGANIC PHOSPHORUS LEVEL Routine 11/16/2019 10:04 AM E DT 11/16/2019 02:04:00 PM [facility] MAGNESIUM MAGNESIUM LEVEL Routine 11/16/2019 10:04 AM EDT 11/16/2019 02:04:00 PM [facility] HEMOGLOBIN GLYCOSYLATED A1C HEMOGLOBIN A1C Routine 11/16/2019 10:04 AM EDT 11/16/2019 02:04:00 PM [facility] CALCIUM IONIZED CALCIUM, IONIZED Routine 11/16/2019 10:04 AM EDT 11/16/2019 02:04:00 PM [facility] BASIC METABOLIC PANEL CALCIUM TOTAL BASIC METABOLIC PANEL Routi ne 11/16/2019 10:04 AM EDT 11/16/2019 02:04:00 PM EDT [facility] GLUCOSE QUANTITATIVE BLOOD XCPT REAGENT STRIP POCT GLUCOSE, DOC KED Routine 11/16/2019 7:50 AM EDT 11/16/2019 11:50:00 AM [facility] GLUCOSE QUANTITATIVE BLOOD XCPT REAGENT STRIP POCT GLUCOSE, DOC KED Routine 11/16/2019 4:32 AM EDT 11/16/2019 08:32:00 AM [facility] GLUCOSE QUANTITATIVE BLOOD XCPT REAGENT STRIP POCT GLUCOSE, DOC KED Routine 11/15/2019 11:38 PM EDT 11/16/2019 03:38:00 AM [facility] GLUCOSE QUANTITATIVE BLOOD XCPT REAGENT STRIP POCT GLUCOSE, DOC KED Routine 11/15/2019 8:04 PM EDT 11/16/2019 12:04:00 AM [facility] GLUCOSE QUANTITATIVE BLOOD XCPT REAGENT STRIP POCT GLUCOSE, DOC KED Routine 11/15/2019 3:59 PM EDT 11/15/2019 07:59:00 PM [facility] UH COVID-19 PCR UH COVID-19 PCR Routine 11/15/2019 12:30 PM EDT 11/15/2019 04:30:00 PM [facility] GLUCOSE QUANTITATIVE BLOOD XCPT REAGENT STRIP POCT GLUCOSE, DOC KED Routine 11/15/2019 12:04 PM EDT 11/15/2019 04:04:00 PM [facility] GLUCOSE QUANTITATIVE BLOOD XCPT REAGENT STRIP POCT GLUCOSE, DOC KED Routine 11/15/2019 8:03 AM EDT 11/15/2019 12:03:00 PM [facility] BLOOD COUNT COMPLETE AUTOMATED CBC Routine 11/15/2019 5:46 A M EDT 11/15/2019 09:46:00 AM [facility] PHOSPHORUS INORGANIC PHOSPHORUS LEVEL Routine 11/15/2019 5:46 AM E DT 11/15/2019 09:46:00 AM [facility] MAGNESIUM MAGNESIUM LEVEL Routine 11/15/2019 5:46 AM EDT 11/15/2019 09:46:00 AM [facility] CALCIUM IONIZED CALCIUM, IONIZED Routine 11/15/2019 5:46 AM EDT 11/15/2019 09:46:00 AM [facility] BASIC METABOLIC PANEL CALCIUM TOTAL BASIC METABOLIC PANEL Routi ne 11/15/2019 5:46 AM EDT 11/15/2019 09:46:00 AM [facility] XR CHEST FRONTAL ONLY [id number] XR CHEST FRONTAL ONLY [id number] Routine 11/15/2019 4:33 AM EDT 11/15/2019 08:33:00 AM EDT [facility] GLUCOSE QUANTITATIVE BLOOD XCPT REAGENT STRIP POCT GLUCOSE, GEE PYLED Routine 11/15/2019 3:49 AM EDT 11/15/2019 07:49:00 AM [facility] GLUCOSE QUANTITATIVE BLOOD XCPT REAGENT STRIP POCT GLUCOSE, GEE MORALES Routine 11/15/2019 12:30 AM EDT 11/15/2019 04:30:00 AM [facility] GLUCOSE QUANTITATIVE BLOOD XCPT REAGENT STRIP POCT GLUCOSE, GEE MORALES Routine 11/14/2019 8:00 PM EDT 11/15/2019 12:00:00 AM [facility] GLUCOSE QUANTITATIVE BLOOD XCPT REAGENT STRIP POCT GLUCOSE, DOC LASHANDAD Routine 11/14/2019 4:11 PM EDT 11/14/2019 08:11:00 PM [facility] GLUCOSE QUANTITATIVE BLOOD XCPT REAGENT STRIP POCT GLUCOSE, DOC LASHANDAD Routine 11/14/2019 12:21 PM EDT 11/14/2019 04:21:00 PM [facility] GLUCOSE QUANTITATIVE BLOOD XCPT REAGENT STRIP POCT GLUCOSE, GEE MORALES Routine 11/14/2019 8:31 AM EDT 11/14/2019 12:31:00 PM [facility] GLUCOSE QUANTITATIVE BLOOD XCPT REAGENT STRIP POCT GLUCOSE, DOC KED Routine 11/14/2019 8:07 AM EDT 11/14/2019 12:07:00 PM [facility] BLOOD COUNT COMPLETE AUTOMATED CBC Routine 11/14/2019 4:31 A M EDT 11/14/2019 08:31:00 AM [facility] PHOSPHORUS INORGANIC PHOSPHORUS LEVEL Routine 11/14/2019 4:31 AM E DT 11/14/2019 08:31:00 AM [facility] MAGNESIUM MAGNESIUM LEVEL Routine 11/14/2019 4:31 AM EDT 11/14/2019 08:31:00 AM [facility] BASIC METABOLIC PANEL CALCIUM TOTAL BASIC METABOLIC PANEL Routi ne 11/14/2019 4:31 AM EDT 11/14/2019 08:31:00 AM EDT [facility] GLUCOSE QUANTITATIVE BLOOD XCPT REAGENT STRIP POCT GLUCOSE, GEE MORALES Routine 11/14/2019 4:27 AM EDT 11/14/2019 08:27:00 AM [facility] GLUCOSE QUANTITATIVE BLOOD XCPT REAGENT STRIP POCT GLUCOSE, GEE MORALES Routine 11/13/2019 11:52 PM EDT 11/14/2019 03:52:00 AM [facility] GLUCOSE QUANTITATIVE BLOOD XCPT REAGENT STRIP POCT GLUCOSE, GEE MORALES Routine 11/13/2019 7:55 PM EDT 11/13/2019 11:55:00 PM [facility] URNLS DIP STICK/TABLET REAGENT AUTO MICROSCOPY URINAL YSIS WITH REFLEX URINE CULTURE Routine 11/13/2019 6:19 PM EDT 11/13/2019 10:19 :00 PM [facility] CULTURE BACTERIAL BLOOD AEROBIC W/ID ISOLATES BLOOD CULTURE R outine 11/13/2019 6:19 PM EDT 11/13/2019 10:19:00 PM EDT [facility] CULTURE BACTERIAL BLOOD AEROBIC W/ID ISOLATES BLOOD CULTURE R outine 11/13/2019 6:19 PM EDT 11/13/2019 10:19:00 PM EDT [facility] GLUCOSE QUANTITATIVE BLOOD XCPT REAGENT STRIP POCT GLUCOSE, GEE MORALES Routine 11/13/2019 4:39 PM EDT 11/13/2019 08:39:00 PM [facility] XR ABDOMEN AP ABD SUPINE ONLY [id number] [place] [id number] STAT 11/13/2019 12:15 PM EDT 11/13/2019 04:15:00 PM [facility] GLUCOSE QUANTITATIVE BLOOD XCPT REAGENT STRIP POCT GLUCOSE, GEE MORALES Routine 11/13/2019 12:12 PM EDT 11/13/2019 04:12:00 PM [facility] BLOOD COUNT COMPLETE AUTOMATED CBC STAT 11/13/2019 11:00 A M EDT 11/13/2019 03:00:00 PM [facility] BASIC METABOLIC PANEL CALCIUM TOTAL BASIC METABOLIC PANEL STAT 11/13/2019 11:00 AM EDT 11/13/2019 03:00:00 PM EDT [facility] XR ABDOMEN AP ABD SUPINE ONLY [id number] XR ABDOMEN AP ABD SUPIN E ONLY [id number] Routine 11/13/2019 10:27 AM EDT 11/13/2019 02:27:00 PM [facility] GLUCOSE QUANTITATIVE BLOOD XCPT REAGENT STRIP POCT GLUCOSE, GEE MORALES Routine 11/13/2019 8:34 AM EDT 11/13/2019 12:34:00 PM [facility] GLUCOSE QUANTITATIVE BLOOD XCPT REAGENT STRIP POCT GLUCOSEGEE Routine 11/13/2019 4:19 AM EDT 11/13/2019 08:19:00 AM [facility] XR CHEST FRONTAL ONLY [id number] XR CHEST FRONTAL ONLY [id number] Routine 11/13/2019 2:55 AM EDT 11/13/2019 06:55:00 AM EDT [facility] GLUCOSE QUANTITATIVE BLOOD XCPT REAGENT STRIP POCT GLUCOSE, GEE MORALES Routine 11/12/2019 11:52 PM EDT 11/13/2019 03:52:00 AM [facility] BLOOD COUNT COMPLETE AUTOMATED CBC Routine 11/12/2019 11:48 P M EDT 11/13/2019 03:48:00 AM [facility] BASIC METABOLIC PANEL CALCIUM TOTAL BASIC METABOLIC PANEL Routi ne 11/12/2019 11:48 PM EDT 11/13/2019 03:48:00 AM EDT [facility] GLUCOSE QUANTITATIVE BLOOD XCPT REAGENT STRIP POCT GLUCOSE, GEE MORALES Routine 11/12/2019 7:38 PM EDT 11/12/2019 11:38:00 PM [facility] GLUCOSE QUANTITATIVE BLOOD XCPT REAGENT STRIP POCT GLUCOSE, GEE MORALES Routine 11/12/2019 3:59 PM EDT 11/12/2019 07:59:00 PM [facility] GLUCOSE QUANTITATIVE BLOOD XCPT REAGENT STRIP POCT GLUCOSEGEE Routine 11/12/2019 12:03 PM EDT 11/12/2019 04:03:00 PM [facility] BLOOD GASES ANY COMBINATION PH PCO2 PO2 CO2 HCO3 BLOOD GAS, ART ERIAL Routine 11/12/2019 11:07 AM EDT 11/12/2019 03:07:00 PM [facility] GLUCOSE QUANTITATIVE BLOOD XCPT REAGENT STRIP POCT GLUCOSEGEE Routine 11/12/2019 8:21 AM EDT 11/12/2019 12:21:00 PM [facility] XR CHEST FRONTAL ONLY [id number] XR CHEST FRONTAL ONLY [id number] Routine 11/12/2019 5:35 AM EDT 11/12/2019 09:35:00 AM [facility] GLUCOSE QUANTITATIVE BLOOD XCPT REAGENT STRIP POCT GLUCOSEGEE Routine 11/12/2019 4:12 AM EDT 11/12/2019 08:12:00 AM [facility] BLOOD COUNT COMPLETE AUTOMATED CBC Routine 11/12/2019 12:17 A M EDT 11/12/2019 04:17:00 AM [facility] BASIC METABOLIC PANEL CALCIUM TOTAL BASIC METABOLIC PANEL Routi ne 11/12/2019 12:17 AM EDT 11/12/2019 04:17:00 AM T [facility] GLUCOSE QUANTITATIVE BLOOD XCPT REAGENT STRIP POCT GLUCOSEGEE Routine 11/11/2019 11:56 PM EDT 11/12/2019 03:56:00 AM [facility] GLUCOSE QUANTITATIVE BLOOD XCPT REAGENT STRIP POCT GLUCOSEGEE Routine 11/11/2019 8:21 PM EDT 11/12/2019 12:21:00 AM [facility] BLOOD GASES ANY COMBINATION PH PCO2 PO2 CO2 HCO3 BLOOD GAS, ART ERIAL Routine 11/11/2019 5:27 PM EDT 11/11/2019 09:27:00 PM [facility] GLUCOSE QUANTITATIVE BLOOD XCPT REAGENT STRIP POCT GLUCOSE, GEE MORALES Routine 11/11/2019 3:53 PM EDT 11/11/2019 07:53:00 PM [facility] BLOOD GASES ANY COMBINATION PH PCO2 PO2 CO2 HCO3 BLOOD GAS, ART ERIAL Routine 11/11/2019 3:12 PM EDT 11/11/2019 07:12:00 PM [facility] GLUCOSE QUANTITATIVE BLOOD XCPT REAGENT STRIP POCT GLUCOSE, GEE MORALES Routine 11/11/2019 12:01 PM EDT 11/11/2019 04:01:00 PM [facility] GLUCOSE QUANTITATIVE BLOOD XCPT REAGENT STRIP POCT GLUCOSE, GEE MORALES Routine 11/11/2019 8:00 AM EDT 11/11/2019 12:00:00 PM [facility] XR CHEST FRONTAL ONLY [id number] XR CHEST FRONTAL ONLY [id number] Routine 11/11/2019 7:50 AM EDT 11/11/2019 11:50:00 AM EDT [facility] BLOOD COUNT COMPLETE AUTOMATED CBC Routine 11/11/2019 5:39 A M EDT 11/11/2019 09:39:00 AM [facility] BASIC METABOLIC PANEL CALCIUM TOTAL BASIC METABOLIC PANEL Routi ne 11/11/2019 5:39 AM EDT 11/11/2019 09:39:00 AM [facility] GLUCOSE QUANTITATIVE BLOOD XCPT REAGENT STRIP POCT GLUCOSE, GEE MORALES Routine 11/11/2019 5:11 AM EDT 11/11/2019 09:11:00 AM [facility] GLUCOSE QUANTITATIVE BLOOD XCPT REAGENT STRIP POCT GLUCOSE, GEE MORALES Routine 11/11/2019 12:02 AM EDT 11/11/2019 04:02:00 AM [facility] GLUCOSE QUANTITATIVE BLOOD XCPT REAGENT STRIP POCT GLUCOSE, GEE MORALES Routine 11/10/2019 8:01 PM EDT 11/11/2019 12:01:00 AM [facility] GLUCOSE QUANTITATIVE BLOOD XCPT REAGENT STRIP POCT GLUCOSE, GEE MORALES Routine 11/10/2019 3:59 PM EDT 11/10/2019 07:59:00 PM [facility] GLUCOSE QUANTITATIVE BLOOD XCPT REAGENT STRIP POCT GLUCOSE, GEE MORALES Routine 11/10/2019 11:35 AM EDT 11/10/2019 03:35:00 PM [facility] XR CHEST FRONTAL ONLY [id number] XR CHEST FRONTAL ONLY [id number] STAT 11/10/2019 8:49 AM EDT 11/10/2019 12:49:25 PM [facility] GLUCOSE QUANTITATIVE BLOOD XCPT REAGENT STRIP POCT GLUCOSE, GEE MORALES Routine 11/10/2019 7:49 AM EDT 11/10/2019 11:49:00 AM [facility] GLUCOSE QUANTITATIVE BLOOD XCPT REAGENT STRIP POCT GLUCOSE, GEE MORALES Routine 11/10/2019 3:42 AM EDT 11/10/2019 07:42:00 AM [facility] BLOOD COUNT COMPLETE AUTOMATED CBC Routine 11/10/2019 3:24 A M EDT 11/10/2019 07:24:00 AM [facility] BASIC METABOLIC PANEL CALCIUM TOTAL BASIC METABOLIC PANEL Routi ne 11/10/2019 3:24 AM EDT 11/10/2019 07:24:00 AM EDT [facility] GLUCOSE QUANTITATIVE BLOOD XCPT REAGENT STRIP POCT GLUCOSE, GEE MORALES Routine 11/10/2019 12:47 AM EDT 11/10/2019 04:47:00 AM [facility] GLUCOSE QUANTITATIVE BLOOD XCPT REAGENT STRIP POCT GLUCOSE, GEE MORALES Routine 11/09/2019 8:18 PM EDT 11/10/2019 12:18:00 AM [facility] GLUCOSE QUANTITATIVE BLOOD XCPT REAGENT STRIP POCT GLUCOSE, GEE MORALES Routine 11/09/2019 4:00 PM EDT 11/09/2019 08:00:00 PM [facility] CUL BACT XCPT URINE BLOOD/STOOL AEROBIC ISOL SPUTUM CULTURE Ro utine 11/09/2019 1:12 PM EDT 11/09/2019 05:12:00 PM EDT [facility] GLUCOSE QUANTITATIVE BLOOD XCPT REAGENT STRIP POCT GLUCOSE, GEE MORALES Routine 11/09/2019 12:10 PM EDT 11/09/2019 04:10:00 PM [facility] GLUCOSE QUANTITATIVE BLOOD XCPT REAGENT STRIP POCT GLUCOSE, GEE MORALES Routine 11/09/2019 8:10 AM EDT 11/09/2019 12:10:00 PM [facility] BLOOD COUNT COMPLETE AUTOMATED CBC STAT 11/09/2019 6:46 A M EDT 11/09/2019 10:46:00 AM [facility] GLUCOSE QUANTITATIVE BLOOD XCPT REAGENT STRIP POCT GLUCOSE, GEE MORALES Routine 11/09/2019 5:10 AM EDT 11/09/2019 09:10:00 AM [facility] XR CHEST FRONTAL ONLY [id number] XR CHEST FRONTAL ONLY [id number] Routine 11/09/2019 4:43 AM EDT 11/09/2019 08:43:00 AM EDT [facility] PHOSPHORUS INORGANIC PHOSPHORUS LEVEL Routine 11/09/2019 4:33 AM E DT 11/09/2019 08:33:00 AM [facility] MAGNESIUM MAGNESIUM LEVEL Routine 11/09/2019 4:33 AM EDT 11/09/2019 08:33:00 AM [facility] BASIC METABOLIC PANEL CALCIUM TOTAL BASIC METABOLIC PANEL Routi ne 11/09/2019 4:33 AM EDT 11/09/2019 08:33:00 AM EDT [facility] GLUCOSE QUANTITATIVE BLOOD XCPT REAGENT STRIP POCT GLUCOSE, GEE MORALES Routine 11/08/2019 11:51 PM EDT 11/09/2019 03:51:00 AM [facility] GLUCOSE QUANTITATIVE BLOOD XCPT REAGENT STRIP POCT GLUCOSE, GEE MORALES Routine 11/08/2019 8:03 PM EDT 11/09/2019 12:03:00 AM [facility] GLUCOSE QUANTITATIVE BLOOD XCPT REAGENT STRIP POCT GLUCOSE, GEE MORALES Routine 11/08/2019 4:32 PM EDT 11/08/2019 08:32:00 PM [facility] GLUCOSE QUANTITATIVE BLOOD XCPT REAGENT STRIP POCT GLUCOSE, GEE MORALES Routine 11/08/2019 11:57 AM EDT 11/08/2019 03:57:00 PM [facility] GLUCOSE QUANTITATIVE BLOOD XCPT REAGENT STRIP POCT GLUCOSE, GEE MORALES Routine 11/08/2019 8:02 AM EDT 11/08/2019 12:02:00 PM [facility] XR CHEST FRONTAL ONLY [id number] XR CHEST FRONTAL ONLY [id number] Routine 11/08/2019 4:45 AM EDT 11/08/2019 08:45:00 AM [facility] GLUCOSE QUANTITATIVE BLOOD XCPT REAGENT STRIP POCT GLUCOSE, GEE MORALES Routine 11/08/2019 3:35 AM EDT 11/08/2019 07:35:00 AM [facility] BLOOD COUNT COMPLETE AUTOMATED CBC AND DIFFERENTIAL Routine 11/08/2019 12:17 AM EDT 11/08/2019 04:17:00 AM EDT [facility] BASIC METABOLIC PANEL CALCIUM TOTAL BASIC METABOLIC PANEL Routi ne 11/08/2019 12:17 AM EDT 11/08/2019 04:17:00 AM [facility] GLUCOSE QUANTITATIVE BLOOD XCPT REAGENT STRIP POCT GLUCOSE, GEE MORALES Routine 11/08/2019 12:01 AM EDT 11/08/2019 04:01:00 AM [facility] GLUCOSE QUANTITATIVE BLOOD XCPT REAGENT STRIP POCT GLUCOSE, GEE MORALES Routine 11/07/2019 8:23 PM EDT 11/08/2019 12:23:00 AM [facility] GLUCOSE QUANTITATIVE BLOOD XCPT REAGENT STRIP POCT GLUCOSE, GEE MORALES Routine 11/07/2019 3:47 PM EDT 11/07/2019 07:47:00 PM [facility] XR CHEST FRONTAL ONLY [id number] XR CHEST FRONTAL ONLY [id number] STAT 11/07/2019 3:45 PM EDT 11/07/2019 07:45:00 PM EDT [facility] POTASSIUM SERUM PLASMA/WHOLE BLOOD POTASSIUM Timed 11/07/2019 2: 46 PM EDT 11/07/2019 06:46:00 PM [facility] PHOSPHORUS INORGANIC PHOSPHORUS LEVEL Timed 11/07/2019 2:46 PM E DT 11/07/2019 06:46:00 PM [facility] MAGNESIUM MAGNESIUM LEVEL Timed 11/07/2019 2:46 PM EDT 11/07/2019 06:46:00 PM [facility] CALCIUM IONIZED CALCIUM, IONIZED Timed 11/07/2019 2:46 PM EDT 11/07/2019 06:46:00 PM [facility] GLUCOSE QUANTITATIVE BLOOD XCPT REAGENT STRIP POCT GLUCOSEGEE Routine 11/07/2019 11:52 AM EDT 11/07/2019 03:52:00 PM [facility] GLUCOSE QUANTITATIVE BLOOD XCPT REAGENT STRIP POCT GLUCOSE, GEE MORALES Routine 11/07/2019 11:26 AM EDT 11/07/2019 03:26:00 PM [facility] XR CHEST FRONTAL ONLY [id number] XR CHEST FRONTAL ONLY [id number] STAT 11/07/2019 8:40 AM EDT 11/07/2019 12:40:00 PM T [facility] GLUCOSE QUANTITATIVE BLOOD XCPT REAGENT STRIP POCT GLUCOSE, GEE MORALES Routine 11/07/2019 8:04 AM EDT 11/07/2019 12:04:00 PM [facility] MAGNESIUM MAGNESIUM LEVEL Routine 11/07/2019 4:34 AM EDT 11/07/2019 08:34:00 AM [facility] BASIC METABOLIC PANEL CALCIUM TOTAL BASIC METABOLIC PANEL Routi ne 11/07/2019 4:34 AM EDT 11/07/2019 08:34:00 AM EDT [facility] BLOOD COUNT COMPLETE AUTOMATED CBC AND DIFFERENTIAL Routine 11/07/2019 4:34 AM EDT 11/07/2019 08:34:00 AM EDT [facility] PHOSPHORUS INORGANIC PHOSPHORUS LEVEL Routine 11/07/2019 4:34 AM E DT 11/07/2019 08:34:00 AM [facility] GLUCOSE QUANTITATIVE BLOOD XCPT REAGENT STRIP POCT GLUCOSE, GEE MORALES Routine 11/07/2019 4:32 AM EDT 11/07/2019 08:32:00 AM [facility] GLUCOSE QUANTITATIVE BLOOD XCPT REAGENT STRIP POCT GLUCOSE, GEE MORALES Routine 11/07/2019 12:52 AM EDT 11/07/2019 04:52:00 AM [facility] POTASSIUM SERUM PLASMA/WHOLE BLOOD POTASSIUM Routine 11/07/2019 12:52 AM EDT 11/07/2019 04:52:[address] [facility] GLUCOSE QUANTITATIVE BLOOD XCPT REAGENT STRIP POCT GLUCOSE, GEE MORALES Routine 11/06/2019 7:49 PM EDT 11/06/2019 11:49:00 PM [facility] GLUCOSE QUANTITATIVE BLOOD XCPT REAGENT STRIP POCT GLUCOSE, GEE KEElsa Routine 11/06/2019 4:13 PM EDT 11/06/2019 08:13:00 PM [facility] POTASSIUM SERUM PLASMA/WHOLE BLOOD POTASSIUM Routine 11/06/2019 2:21 PM EDT 11/06/2019 06:21:[address] [facility] GLUCOSE QUANTITATIVE BLOOD XCPT REAGENT STRIP POCT GLUCOSE, GEE MORALES Routine 11/06/2019 11:24 AM EDT 11/06/2019 03:24:00 PM [facility] GLUCOSE QUANTITATIVE BLOOD XCPT REAGENT STRIP POCT GLUCOSE, GEE MORALES Routine 11/06/2019 8:17 AM EDT 11/06/2019 12:17:00 PM [facility] [facility] BASIC METABOLIC PANEL CALCIUM TOTAL BASIC METABOLIC PANEL Timed 11/06/2019 7:28 AM EDT 11/06/2019 11:28:00 AM EDT [facility] CALCIUM IONIZED CALCIUM, IONIZED Routine 11/06/2019 4:09 AM EDT 11/06/2019 08:09:00 AM [facility] BLOOD COUNT COMPLETE AUTO&AUTO DIFRNTL WBC COUNT CBC AND DIFFER ENTIAL Routine 11/06/2019 4:07 AM EDT 11/06/2019 08:07:00 AM [facility] PHOSPHORUS INORGANIC PHOSPHORUS LEVEL Routine 11/06/2019 4:07 AM E DT 11/06/2019 08:07:00 AM [facility] MAGNESIUM MAGNESIUM LEVEL Routine 11/06/2019 4:07 AM EDT 11/06/2019 08:07:00 AM [facility] BASIC METABOLIC PANEL CALCIUM TOTAL BASIC METABOLIC PANEL Routi ne 11/06/2019 4:07 AM EDT 11/06/2019 08:07:00 AM EDT [facility] GLUCOSE QUANTITATIVE BLOOD XCPT REAGENT STRIP POCT GLUCOSE, DOC CARMEN Routine 11/06/2019 4:05 AM EDT 11/06/2019 08:05:00 AM [facility] BASIC METABOLIC PANEL CALCIUM TOTAL BASIC METABOLIC PANEL Timed 11/06/2019 12:09 AM EDT 11/06/2019 04:09:00 AM EDT [facility] GLUCOSE QUANTITATIVE BLOOD XCPT REAGENT STRIP POCT GLUCOSE, DOC KEElsa Routine 11/06/2019 12:07 AM EDT 11/06/2019 04:07:00 AM [facility] GLUCOSE QUANTITATIVE BLOOD XCPT REAGENT STRIP POCT GLUCOSE, DOC CARMEN Routine 11/05/2019 8:26 PM EDT 11/06/2019 12:26:00 AM [facility] BASIC METABOLIC PANEL CALCIUM TOTAL BASIC METABOLIC PANEL Timed 11/05/2019 6:48 PM EDT 11/05/2019 10:48:00 PM EDT [facility] GLUCOSE QUANTITATIVE BLOOD XCPT REAGENT STRIP POCT GLUCOSE, DOC KEElsa Routine 11/05/2019 4:09 PM EDT 11/05/2019 08:09:00 PM [facility] TRANSFUSE RBC (ONCE) TRANSFUSE RBC (ONCE) Routine 11/05/2019 2:16 PM EDT 11/05/2019 06:16:01 PM [facility] BASIC METABOLIC PANEL CALCIUM TOTAL BASIC METABOLIC PANEL Timed 11/05/2019 12:19 PM EDT 11/05/2019 04:19:00 PM EDT [facility] GLUCOSE QUANTITATIVE BLOOD XCPT REAGENT STRIP POCT GLUCOSE, DOC KED Routine 11/05/2019 12:07 PM EDT 11/05/2019 04:07:00 PM [facility] BLOOD TYPING ABO TYPE AND CROSSMATCH Routine 11/05/2019 10:32 AM ED T 11/05/2019 02:32:00 PM [facility] GLUCOSE QUANTITATIVE BLOOD XCPT REAGENT STRIP POCT GLUCOSE, GEE MORALES Routine 11/05/2019 8:33 AM EDT 11/05/2019 12:33:00 PM [facility] BASIC METABOLIC PANEL CALCIUM TOTAL BASIC METABOLIC PANEL Timed 11/05/2019 6:50 AM EDT 11/05/2019 10:50:00 AM EDT [facility] BLOOD COUNT COMPLETE AUTO&AUTO DIFRNTL WBC COUNT CBC AND DIFFER ENTIAL Routine 11/05/2019 4:25 AM EDT 11/05/2019 08:25:00 AM [facility] PHOSPHORUS INORGANIC PHOSPHORUS LEVEL Routine 11/05/2019 4:25 AM E DT 11/05/2019 08:25:00 AM [facility] MAGNESIUM MAGNESIUM LEVEL Routine 11/05/2019 4:25 AM EDT 11/05/2019 08:25:00 AM [facility] BASIC METABOLIC PANEL CALCIUM TOTAL BASIC METABOLIC PANEL Routi ne 11/05/2019 4:25 AM EDT 11/05/2019 08:25:00 AM EDT [facility] GLUCOSE QUANTITATIVE BLOOD XCPT REAGENT STRIP POCT GLUCOSE, GEE MORALES Routine 11/05/2019 4:24 AM EDT 11/05/2019 08:24:00 AM [facility] BASIC METABOLIC PANEL CALCIUM TOTAL BASIC METABOLIC PANEL Timed 11/05/2019 12:59 AM EDT 11/05/2019 04:59:00 AM EDT [facility] GLUCOSE QUANTITATIVE BLOOD XCPT REAGENT STRIP POCT GLUCOSE, GEE MORALES Routine 11/05/2019 12:58 AM EDT 11/05/2019 04:58:00 AM [facility] GLUCOSE QUANTITATIVE BLOOD XCPT REAGENT STRIP POCT GLUCOSE, GEE MORALES Routine 11/04/2019 10:00 PM EDT 11/05/2019 02:00:00 AM [facility] PICC ULTRASOUND - BEDSIDE PROCEDURE PICC ULTRASOUND - BEDSI DE PROCEDURE Routine 11/04/2019 9:04 PM EDT 11/05/2019 01:04:00 AM [facility] BASIC METABOLIC PANEL CALCIUM TOTAL BASIC METABOLIC PANEL Timed 11/04/2019 5:02 PM EDT 11/04/2019 09:02:00 PM EDT [facility] GLUCOSE QUANTITATIVE BLOOD XCPT REAGENT STRIP POCT GLUCOSE, GEE MORALES Routine 11/04/2019 3:57 PM EDT 11/04/2019 07:57:00 PM [facility] URNLS DIP STICK/TABLET REAGENT AUTO MICROSCOPY URINAL YSIS WITH REFLEX URINE CULTURE Routine 11/04/2019 11:55 AM EDT 11/04/2019 03:55 :00 PM [facility] GLUCOSE QUANTITATIVE BLOOD XCPT REAGENT STRIP POCT GLUCOSE, GEE MORALES Routine 11/04/2019 11:40 AM EDT 11/04/2019 03:40:00 PM [facility] XR CHEST FRONTAL ONLY [id number] XR CHEST FRONTAL ONLY [id number] Routine 11/04/2019 9:16 AM EDT 11/04/2019 01:16:06 PM EDT [facility] GLUCOSE QUANTITATIVE BLOOD XCPT REAGENT STRIP POCT GLUCOSEGEE Routine 11/04/2019 7:51 AM EDT 11/04/2019 11:51:00 AM [facility] BLOOD COUNT COMPLETE AUTOMATED CBC STAT 11/04/2019 6:45 A M EDT 11/04/2019 10:45:00 AM [facility] TRANSFUSE RBC (ONCE) TRANSFUSE RBC (ONCE) Routine 11/04/2019 5:07 AM EDT 11/04/2019 09:07:01 AM [facility] GLUCOSE QUANTITATIVE BLOOD XCPT REAGENT STRIP POCT GLUCOSEGEE Routine 11/04/2019 3:33 AM EDT 11/04/2019 07:33:00 AM [facility] BLOOD COUNT COMPLETE AUTO&AUTO DIFRNTL WBC COUNT CBC AND DIFFER ENTIAL Routine 11/04/2019 2:17 AM EDT 11/04/2019 06:17:00 AM [facility] BASIC METABOLIC PANEL CALCIUM TOTAL BASIC METABOLIC PANEL Routi ne 11/04/2019 2:17 AM EDT 11/04/2019 06:17:00 AM EDT [facility] GLUCOSE QUANTITATIVE BLOOD XCPT REAGENT STRIP POCT GLUCOSEGEE Routine 11/03/2019 11:54 PM EDT 11/04/2019 03:54:00 AM [facility] GLUCOSE QUANTITATIVE BLOOD XCPT REAGENT STRIP POCT GLUCOSE, GEE MORALES Routine 11/03/2019 8:14 PM EDT 11/04/2019 12:14:00 AM [facility] GLUCOSE QUANTITATIVE BLOOD XCPT REAGENT STRIP POCT GLUCOSEGEE Routine 11/03/2019 3:54 PM EDT 11/03/2019 07:54:00 PM [facility] GLUCOSE QUANTITATIVE BLOOD XCPT REAGENT STRIP POCT GLUCOSE, DOC CARMEN Routine 11/03/2019 11:58 AM EDT 11/03/2019 03:58:00 PM [facility] GLUCOSE QUANTITATIVE BLOOD XCPT REAGENT STRIP POCT GLUCOSE, DOC CARMEN Routine 11/03/2019 8:01 AM EDT 11/03/2019 12:01:00 PM [facility] GLUCOSE QUANTITATIVE BLOOD XCPT REAGENT STRIP POCT GLUCOSE, DOC LASHANDAD Routine 11/03/2019 6:59 AM EDT 11/03/2019 10:59:00 AM [facility] GLUCOSE QUANTITATIVE BLOOD XCPT REAGENT STRIP POCT GLUCOSE, DOC CARMEN Routine 11/03/2019 6:07 AM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 SOLU-MEDROL [IVP] SOLU-Medrol 125 mg IV X1 Dose:13:25 04/06/2020 (METHYLPREDNISOLONE SODIUM 125 mg (X1)Lexie Wesley R.N. SUCC) Dose: 125 mg IVP Site: #1 left forearmGiven LASIX [IVP] Lasix IVP 80 mg (NOW)14:18 04/06/2020 Dose: 80 mg IVPPutLexie thapa R.N. Site: #1 left forearmStart LEVOFLOXACIN [IVPB] levoFLOXacin IVPB 500 mg/088tM64:04 04/06/2020 Dose: 500 mg IVPB (NOW)Lexie Wesley R.N. Rate: 100 mL/hr---- Dispensed: 100 mL bagStop Site: #1 left taboxns41:57 04/06/2020German Contreras RNGiven DUONEB [NEB TX] DuoNeb 3 mL X2 Doses: 6 mL (316:51 04/06/2020 Dose: 2 unit dose Nebulizer Neb TX mL X2 Doses)Lexie Wesley R.N. Name Value Range Interpretation Code Description Data Grace rce(s) Supporting Document(s) ID Date Data Source [id number] 04/06/2020 12:33:00 PM EST [facility] 1 General Instructions [facility] [address] [place] [address] Phone #: ext- [phone] 04/06/2020 12:27 Patient: HANNA GARVIN Sex: F : 1955 Age: 64yChronic moderate systolic, left ventricular congestive heart failure.Acute respiratory failure with hypoxemia.Bilateral pedal edema secondary to congestive heart failure.Constipation (Severe, with impaction).Stage 4 pressure ulcer with exposed muscle and bone on the sacral area. Inflammation present. (At least 5sacral decubiti with one down to pelvic bone).Acute urinary tract infection with cystitis associated with indwelling catheter. No hematuria.(Electronically signed by Alaina Rodríguez, Physician 04/07/2020 06:41) Name Value Range Interpretation Code Description Data Garce rce(s) Supporting Document(s) ID Date Data Source [id number] 04/06/2020 12:33:00 PM EST [facility] 1 Clinical Report - Nurses [facility] [address] [place] [address] Phone #: [phone]- [phone] 04/06/2020 12:27 Patient: HANNA GARVIN Sex: F : 1955 Age: 64yTRIAGEArrived by EMS. Historian: patient. ( Pt arrives via EMS. Public health nurse called EMS for low O2. PHnurse felt patient low o2 may have been associated with need to clean trach (placed 2 months ago) and didcleanse it prior to EMS without success. Public health nurse feels there is a mucus plug in trach which iscausing low 02 Pt d/c from [facility] March 19 with pneumonia dx. Pt alert and able to speak in fullsentences. EMS reports O2 sat in 80s when they arrived. Pt declined to go to [facility] today.).Triage time: 12:28 04/06/2020. Acuity: LEVEL 3.Chief Complaint: DYSPNEA.Alert.This started today. 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 --13:04/06/20 Rhianna Menendez R.N.12:28 04/06/20. BP: 118/71. HR: 76. RR: 23. O2 saturation: 84%. Temp: 97.9 F. Pain level now 0/10.--13:04/06/20 Suze Menendez R.N.Weight: 130.1 kg measured. Height/Length: 68 inches. BMI: 43.6. --12:27 04/06/20 Suze Menendez R.N.MedicationsDiclofenac Sodium Oral 2 g. --12:40 04/06/20 Suze Menendez R.N. Docusate Sodium Oral 100mg. --12:41 04/06/20 Suze Menendez R.N. DULoxetine HCl Oral 60mg. --12:41 04/06/20 Suze Menendez R.N. Gabapentin Oral. --12:41 04/06/20 Suze Menendez R.N. guaiFENesin Oral 200 mg. --12:42 04/06/20 Suze Menendez R.N. Hydroxychloroquine Sulfate Oral 200mg. --12:42 04/06/20 Suze Menendez R.N. hydrOXYzine HCl Oral. --12:42 04/06/20 Suze Menendez R.N. Duo neb. --12:43 04/06/20 Suze Menendez R.N. Melatonin Oral 5mg. --12:44 04/06/20 Suze Menendez R.N. Meloxicam Oral 75mg. --12:44 04/06/20 Suze Menendez R.N. Acetaminophen Oral, 3x a day. --12:45 04/06/20 Suze Menendez R.N. Atenolol Oral 12.5 mg, daily. --12:45 04/06/20 Suze Menendez R.N. Buprenorphine HCl Sublingual. Buprenorphine HCl-Naloxone HCl Sublingual. --12:45 04/06/20 Suze Menendez R.N. Carboxymethylcellulose. --12:47 04/06/20 Suze Menendez R.N.AllergiesNo Known Drug Allergy. --12:35 04/06/20 Suze Menendez R.N. 2 Clinical Report - Nurses [facility] [address] [place] [address] Phone #: ext- [phone] 04/06/2020 12:27 Patient: HANNA GARVIN [facility]#: [id number] Sex: F : 1955 Age: 64y PROBLEMS: Indwelling catheter. Low o2. MRSA (lungs). Hypertension. Diabetes Mellitus. Pneumonia. --12:48 04/06/20 Suze Menendez R.N. ADDITIONAL SURGERIES: Tracheostomy. --12:48 04/06/20 Suze Menendez R.N. History PAST MEDICAL HX: Immunizations: up-to-date. ( pt at 84% on RA. pt placed on 3L NC. staff attempted 2L NC during triage but did not improve O2 sat. Pt has indwelling catheter.). SOCIAL HX: Never smoker. No alcohol use or drug use. She was offered HIV testing but declined and hepatitis C testing but declined. She has not traveled outside the [place] Infectious disease exposure: No infectious disease exposure. SELF HARM ASSESSMENT: Self harm assessment was performed. The patient answered "no" to the question(s) "Have you recently felt down, depressed, or hopeless?", "Do you have thoughts of harming or killing yourself?", "Do you have a plan for harming or killing yourself?", "Have you recently had thoughts about harming or killing others?", "Do you have any dangerous items in your possession?", "Have you noticed less interest or pleasure in doing things?", "Are you here because you tried to hurt yourself?" and "Have you ever tried to hurt yourself before today?". ABUSE ASSESSMENT: Abuse assessment. No suspicion of abuse. No report of abuse. NUTRITIONAL RISK ASSESSMENT: The nutritional risk assessment revealed no deficiencies. FUNCTIONAL ASSESSMENT: Functional assessment: no impairments noted. LEARNING NEEDS ASSESSMENT: The learning needs assessment revealed no barriers. FALL RISK ASSESSMENT: Fall risk assessment completed per protocol. SKIN INTEGRITY ASSESSMENT: Skin integrity risk assessment completed. No skin integrity risk identified. --13:09 04/06/20 Suze Menendez R.N.PHYSICAL ASSESSMENTlate entry - 12:59 04/06/20. To room via stretcher. Patient gowned.GENERAL / NEURO / PSYCH: Alert. Oriented X 4. Appears in no acute distress. ( Pt has track withholding device around neck, appears patent with passy orlin valve, pt able to talk well, NAD).HEENT: No facial asymmetry noted. Mucous membranes are pink.RESPIRATORY: Mild respiratory distress. The patient can speak in full sentences. Bilateral rhonchi 3 Clinical Report - Nurses [facility] [address] [place] [address] Phone #: ext- [phone] 04/06/2020 12:27 Patient: HANNA GARVIN Sex: F : 1955 Age: 64y present diffusely (expiratory). CVS: Normal sinus rhythm noted. Pulses: right brachial 2+; left brachial 2+; right dorsalis pedis 2+; left dorsalis pedis 2+. Pulses within normal limits. GI / : ( Pt has healing peg tube surgical incision to mid epigastric area, healing, however has thick green/brown purulent drainage present with mepilex border over site, this was cleansed and changed.). Abdomen soft and nontender and normal bowel sounds. EXTREMITIES: Bilateral 1+ edema of the lower extremities involving both feet and both ankles. SKIN: Skin breakdown noted on the right buttock (right lower almost completely healed, appears to be more excoriated than ulcered.). Stage II pressure ulcer (Partial thickness loss of dermis presenting as a shallow open ulcer with a red pink wounded bed, without slough. Intact or open / ruptured serum-filled blister) noted on the left buttock (Left lower buttocks appears to just be protective, possibly healed ulcer; Left upper excoriation, stage II). Unstageable pressure ulcer (Full thickness tissue loss in which actual depth of the ulcer is completely obsurced. Unable to visualize the base of the wound) noted on the sacrum (Right sacrum, unstageable, half dollar size, slough present at wound base and appears to be tunneling, blue foam present on arrival). Stage II pressure ulcer (Partial thickness loss of dermis presenting as a shallow open ulcer with a red pink wounded bed, without slough. Intact or open / ruptured serum-filled blister) noted on the coccyx. Skin is warm and dry. ( Pt had BM when assessing skin, was cleansed, and all mepilex borders were changed). --13:14 04/06/20 Lexie Wesley R.N.NURSING PROGRESS NOTESThe plan of care for this patient has been created. Oxygen administered. Monitoring of patient in place.EKG time: (12:33 04/06/2020). EKG was performed by a tech and shown to the ED physician. Bloodsamples drawn. Patient gowned. Head of bed elevated. Reassurance given. Two patient identifierschecked. Call light placed in reach. Bed placed in lowest position. Brakes of bed on. --12:37 04/06/20Suze Menendez R.N. 12:37 04/06/20. O2 saturation: 84% on nasal cannula at 2 liters/minute. --13:15 04/06/20 Lexie Wesley R.N. 12:35 04/06/2020 Site #1 started via IV in the left forearm with an 20g angiocath, with aseptic technique and good blood return; one attempt. Blood drawn: rainbow set and cultures x1. Labeled in the presence of the patient and sent to the lab. Saline lock flushed with 10 mL saline. --13:17 04/06/20 Lexie Wesley R.N. late entry - 12:40 04/06/20. Oxygen increased to 3 liters by nasal cannula. --13:15 04/06/20 Lexie Wesley R.N. Oxygen decreased to 2 liters by nasal cannula. --13:15 04/06/20 Lexie Wesley R.N. Correction --13:15 04/06/20 Lexie Wesley R.N. 12:45 04/06/20. O2 saturation: 97% on nasal cannula at 3 liters/minute. --13:15 04/06/20 Lexie Wesley R.N. late entry - 12:50 04/06/20. Oxygen decreased to 2 liters by nasal cannula. --13:16 04/06/20 Julieta Wesley Clinical Report - Nurses [facility] [address] [place] [address] Phone #: ext- [phone] 04/06/2020 12:27 Patient: HANNA GARVIN Sex: F : 1955 Age: 64yJerafaela, R.N.13:16 04/06/20. BP: 118/71. MAP: 86. HR: 71. RR: 18. O2 saturation: 96% on nasal cannula at 2liters/minute. --13:16 04/06/20 Lexie Wesley R.N.( Respiratory at bedside currently to suction trach and provide sputum sample, pt tolerated well). --13: Lexie Wesley R.N.late entry - 12:50 04/06/20. Wood catheter present on arrival. Reason for indwelling catheter: critical needto monitor intake and output. During procedure hand hygiene observed and sterile equipment and aseptictechnique used. Return of cloudy urine. Patient ID band checked for patient name and birthdate: patientconfirmed. Instructions provided to collect clean catch urine and patient verbalized understanding.Catheterized urine collected with return of cloudy urine; sample sent to lab for urinalysis. Specimen labeledin the presence of the patient. --13:18 04/06/20 Lexie Wesley R.N.late entry - 12:50 04/06/20. Patient ID band checked for patient name and birthdate: patient confirmed.Wound to abdomen swabbed for culture; collected by nurse. Specimen labeled in the presence of thepatient (old peg tube; Replaced mepilex border). --13:18 04/06/20 Lexie Wesley R.N.late entry - 13:12 04/06/20. Portable chest x-ray completed. --13:17 04/06/20 Lexie Wesley R.N.( RT was unable to get sputum sample, not productive, is aware.). --13:19 04/06/20 Lexie Wesley R.N.( Af ter BM pt was cleansed and all mepilex changed and pt positioned right side lying position. Pt has nomovement of legs; Pt tolerating well on 2LNC, NAD). --13:19 04/06/20 Lexie Wesley R.N.13:25 04/06/2020 Solu-Medrol (methylPREDNISolone Sodium Succ) IVP 125 mg given over 2 minute(s)via site #1. Allergies verified and confirmed 5 rights. IV patency established. IV site checked: no pain,redness, or swelling. IV flushed thoroughly pre- and post- medication administration. IVP given by RN.Information reviewed with patient including reason for taking this medication, signs of allergic reaction andpreca utions. Verbalizes understanding. --13:25 04/06/20 Lexie Wesley R.N.Patient ID band checked for patient name and birthdate: patient confirmed. Wound to buttocks swabbed forculture; collected by nurse. ( Turned pt to se wounds, pt had another small soft BM, changed large sacralmepilex again.). --13:31 04/06/20 Lexie Wesley R.N.late entry - 13:28 04/06/20. Patient ID band checked for patient name and birthdate: patient confirmed.Blood samples drawn from the left forearm peripheral IV site by nurse per protocol ; labeled in presence ofthe patient and sent to lab: blood culture (2nd set). --13:33 04/06/20 Lexie Wesley R.N.13:39 04/06/2020 Duoneb Neb TX Nebulizer 2 unit dose given. Given by the nurse. Allergies verified andconfirmed 5 rights. Information reviewed with patient including reason for taking this medication, signs ofallergic reaction and precautions. Verbalizes understanding. --13:39 04/06/20 Lexie Wesley R.N. 5 Clinical Report - Nurses [facility] [address] [place] [address] Phone #: ext- [phone] 04/06/2020 12:27 Patient: HANNA GARVIN Sex: F : 1955 Age: 64y13:47 04/06/20. BP: 137/80. MAP: 99. HR: 67. RR: 20. O2 saturation: 95%. --13:47 04/06/20 [facility] Dwxg870:02 04/06/20. BP: 124/62. MAP: 82. HR: 68. RR: 17. O2 saturation: 96%. --14:02 04/06/20 [facility] Hcdf654:18 04/06/2020 Lasix IVP 80 mg given over 8 minute(s) via site #1. Allergies verified and confirmed 5rights. IV patency established. IV site checked: no pain, redness, or swelling. IV flushed thoroughly pre-and post- medication administration. IVP given by RN. Information reviewed with patient including reasonfor taking this medication, signs of allergic reaction and precautions. Verbalizes understanding. --14: Lexie Wesley R.N.14:18 04/06/2020 Solu-Medrol IVP Response: no adverse reaction. --14:18 Lexie Wesley R.N.14:18 04/06/2020 Duoneb Neb TX Response: no adverse reaction symptoms have improved the patientfeels better. --14:18 04/06/20 Lexie Wesley R.N.Reassessment acuity: LEVEL 3.Rounding: Pain: assessed pain level. Position: states comfortable. Proximity of possessions / care items:call light within easy reach. Set expectations: advised patient of rounding protocol timing and asked if theyneeded anything else at this time. The patient reports no complaints and she is calm. Overall patientstatus is improved- she states feels better. ( Pt left side lying now, resting comfortably, NAD).RESPIRATORY: No respiratory distress.CVS: Cardiac rhythm: normal sinus rhythm. --14:20 04/06/20 Lexie Wesley R.N.14:28 04/06/20. BP: 136/66. MAP: 89. HR: 70. RR: 16. O2 saturation: 93%. --14:28 04/06/20 [facility], Azrr446:00 04/06/20. BP: 138/73. MAP: 94. HR: 69. RR: 15. O2 saturation: 91%. --15:04/06/20 [facility], Bimr483:04 04/06/2020 Started 500 mg of Levofloxacin IVPB in bag #1 100 mL; at 100 mL/hr via site #1. via IVpump. Allergies verified and confirmed 5 rights. IV patency established. IV site checked: no pain, redness,or swelling. IV flushed thoroughly pre- and post-medication administration. Information reviewed withpatient including reason for taking this medication, signs of allergic reaction and precautions. Verbalizesunderstanding. --15:11/18 Lexie Wesley R.N.15:04 04/06/2020 Lasix IVP Response: no adverse reaction. --15:04/06/20 Lexie Wesley R.N.Rounding: Pain: assessed pain level. Position: states comfortable and repositioned. (right side lying; nomore stool present at this time, dressings C/D/I). --15:04/06/20 Lexie Wesley R.N. 6 Clinical Report - Nurses [facility] Emergency Department [address] [place] [address] Phone #: ext- [phone] 04/06/2020 12:27 Patient: HANNA GARVIN [facility]#: [id number] Sex: F : 1955 Age: 64y15:28 04/06/20. BP: 155/90. MAP: 111. HR: 71. RR: 19. O2 saturation: 92%. --15:28 04/06/20 [facility], Hvty458:57 04/06/2020 Levofloxacin IVPB via IV site #1 Discontinued: completed. Total amount infused: 100mL. --15:57 04/06/20 German Contreras RN16:02 04/06/20. BP: 151/95. MAP: 113. HR: 73. RR: 15. O2 saturation: 99%. Temp: 97.8 F. --16: Tick[employer]Tickets Tpyh0Kgphkthuylkw acuity: LEVEL 3.Rounding: Pain: assessed pain level. Position: states comfortable. Proximity of possessions / care items:call light within easy reach. Set expectations: advised patient of rounding protocol timing and asked if theyneeded anything else at this time. The patient is calm and resting quietly. Overall patient status isimproved- she states feels better. ( Pt states she feels much better; Pt is unable to cough to clearrhonchi bilaterally both insp and exp, MD aware).RESPIRATORY: No respiratory distress. --16:13 04/06/20 Lexie Wesley RTheo.Patient transported to CT by stretcher with O2, nurse and senior technical trainer. --16:23 04/06/20 Lexie Wesley R.N.16:49 04/06/20. BP: 141/70. MAP: 93. HR: 73. RR: 18. O2 saturation: 94% on nasal cannula at 2liters/minute. --16:50 04/06/20 Lexie Wesley R.N.Rounding: Pain: assessed pain level. Position: states comfortable and repositioned (Lying left side).Proximity of possessions / care items: call light within easy reach. Set expectations: advised patient ofrounding protocol timing and asked if they needed anything else at this time. The patient is calm andresting quietly.RESPIRATORY: Decreased breath sounds (rhonchi diffuse ins and exp, MD aware and will give breathingtx). Patient returned from CT by stretcher with nurse. --16:50 04/06/20 Lexie Wesley R.N.16:51 04/06/2020 Duoneb Neb TX Nebulizer 2 unit dose given. Given by the nurse. Allergies verified andconfirmed 5 rights. Information reviewed with patient including reason for taking this medication, signs ofallergic reaction and precautions. Verbalizes understanding. --16:51 04/06/20 Lexie Wesley R.N.17:07 04/06/20. BP: 115/74. MAP: 87. HR: 70. RR: 19. O2 saturation: 98%. --17:07 04/06/20 [facility] Yara231:30 04/06/20. BP: 136/71. MAP: 92. HR: 70. RR: 16. O2 saturation: 95%. --17:31 04/06/20 Lexie Wesley R.N.Care transferred and report given (Nikki Menendez RN). --17:31 04/06/20 Lexie Wesley R.N. 7 Clinical Report - Nurses [facility] Emergency Department [address] [place] [address] Phone #: ext- [phone] 04/06/2020 12:27 Patient: HANNA GARVIN Sex: F : 1955 Age: 64y 17:33 04/06/20. BP: 136/71. MAP: 92. HR: 71. RR: 15. O2 saturation: 95%. --17:33 04/06/20 [facility] Tech1 17:58 04/06/20. BP: 143/74. MAP: 97. HR: 71. RR: 16. O2 saturation: 93%. --17:58 04/06/20 [place] [address] The patient reports no complaints and she is calm and resting quietly. --18:32 04/06/20 Suze Menendez R.N. 19:00 04/06/20. BP: 142/72. MAP: 95. HR: 68. RR: 16. O2 saturation: 94%. --19:00 04/06/20 [place] [address] 19:28 04/06/20. BP: 151/77. MAP: 101. HR: 68. RR: 16. O2 saturation: 98%. --19:28 04/06/20 [place] [address] The patient reports no complaints and she is calm and resting quietly. --19:52 04/06/20 Suze Menendez R.N. The patient is calm and resting quietly. ( EMS arrived for transport). --20:17 04/06/20 Suze Menendez R.N. ( wood catheter emptied prior to transport). --20:18 04/06/20 Suze Menendez R.N. Intake Output Urine output: 1375 mL measured, catheter. --16:20 04/06/20 Lexie Wesley R.N. Urine output: 875 mL measured, catheter with return of yellow-colored urine. --20:18 04/06/20 Suze Menendez R.N.DISPOSITION / DISCHARGE Report was given to a nurse via a phone call. Report included information regarding patient's care, treatment, allergies and condition, current and abnormal vital signs and labs. Report included treatment information regarding medications given or pending and home medications. All questions were answered. Report was acknowledged and care was transferred. (Gabi Coy RN). --19:52 04/06/20 Suze Menendez R.N. Transferred to [facility]. Visit overview, summary of care (CCDA), Emtala forms and Face Sheet provided to EMS and transfer facility via paper (pt to go to PCU). Transported via ambulance by autopsy pathologist and EMS with monitor, IV and O2 (Megan Ding and Torey Schmid). --20:21 04/06/20 Suze Menendez R.N. 20:18 04/06/20. BP: 114/93. HR: 68. RR: 15. O2 saturation: 96%. Temp: 97.2 F. Pain level now 0/10. --20:21 04/06/20 Suze Menendez R.N. 8 Clinical Report - Nurses [facility] [address] [place] [address] Phone #: ext [phone] 04/06/2020 12:27 Patient: HANNA GARVIN Sex: F : 1955 Age: 64y Departure time: 20:18 04/06/2020. --20:21 04/06/20 Suze Menendez R.N.Locked/Released at 04/06/2020 20:31 by Suze Menendez R.N. Name Value Range Interpretation Code Description Data Grace rce(s) Supporting Document(s) ID Date Data Source [id number] 04/06/2020 12:33:00 PM EST [facility] 1 Clinical Report - Physicians/Mid Levels [facility] [address] [place] [address] Phone #: ext [phone] 04/06/2020 12:27 Patient: HANNA GARVIN Sex: F : 1955 Age: 64y Time Seen: 12:33 04/06/2020. Arrived- By ambulance. Historian- EMS personnel. Disposition decision: 18:30 04/06/2020.HISTORY OF PRESENT ILLNESS Chief Complaint: DYSPNEA and Recent pneumonia requiring vent. / tracheostomy. This started today Hypoxia noted today and pt. advised to come to ED for evaluation.; Pt. says she has had no BMs in 10 days. Recent negative COVID test. and is still present. It was abrupt in onset and has been waxing/waning. The dyspnea is described as moderate and is worsened by exertion, being in a supine position and cough. No cough, fever, sweating episodes, chills or chest pain. No calf pain, dizziness, tingling, numbness or palpitations. She has had scant amounts of sputum, chest discomfort, wheezing, dyspnea on exertion and foot swelling. She has had orthopnea and anxiety. Similar symptoms previously. Patient has had similar symptoms occasionally. Recent medical care: The patient was seen recently at another facility and hospitalized. ( Was hospitalized at [facility] for a prolonged time with pneumonia - requiring intubation and ultimately tracheostomy. She also has a feeding tube that was removed.).REVIEW OF SYSTEMSThe patient has not had weight loss. No muscle aches, eye irritation, sore throat, nasal discharge or sinusdrainage. No nausea, vomiting, abdominal pain, diarrhea or black stools. No bloody stools, headache,fainting episodes, blurred vision or difficulty with urination. No excessive urination, skin rash, enlargedlymph nodes or joint pain. Denies current .PAST HISTORYPast history not negative. See nurses notes. Hypertension. Diabetes mellitus. Lung disease.Pneumonia. GI disease. Other disease. ConstipationPneumoniaExtended endotracheal intubation requiring tracheostomyChronic painDepressionPressure ulcers - Multiple decubitiAnemiaMigrainesLumbar spondylosis with myelopathyRAType II DMDiabetic polyneuropathyDDD with lumbar radiculopathyLow back painMRSA / MSSA 2 Clinical Report - Physicians/Mid Levels [facility] [address] [place] [address] Phone #: ext- [phone] 04/06/2020 12:27 Patient: HANNA GARVIN Sex: F : 1955 Age: 64y Osteomyelitis of R ankle Lumbar spinal stenosis Proctitis Indwelling wood. Surgeries: Cholecystectomy. Tracheostomy. (R ankle (fractured) Lees rods to T-spine PEG tube - Removed).SOCIAL HISTORYNever smoker. No alcohol use or drug use. No recent travel.ADDITIONAL NOTESThe nursing notes have been reviewed with agreement regarding the chief complaint, HPI, ROS, PMH andpatient medications and allergies.PHYSICAL EXAMVital Signs: 04/06/2020 12:28 BP: 118/71. MAP: 86. HR: 76. RR: 23. O2 saturation: 84%. Temp: 97.9 F.Have been reviewed and appear to be correct. Blood pressure normal. Heart rate normal. Respiratoryrate normal. Temperature normal. Oxygen saturation normal.Appearance: Alert. Anxious. Patient in mild distress. In distress.Eyes: Pupils equal, round and reactive to light. Eyes inspection not normal. Pale conjunctivae.ENT: Nose normal. Pharynx abnormal. Dry mucous membranes present.Neck: Normal inspection. No jugular venous distention. Neck supple.CVS: Normal heart rate and rhythm. Heart sounds normal. Pulses normal.Respiratory: No respiratory distress. Breath sounds abnormal. Mildly decreased air movementbilaterally. Painless inspiration.Abdomen: Soft and nontender. No organomegaly. Moderately obese. (H ealing, dressed former PEGtube site).Back: Normal inspection.Skin: Skin warm and dry. Abnormal skin color. No rash. Normal skin turgor. Pale.Extremities: Lower extremity edema present. Bilateral moderate pitting edema of the lower extremitiesinvolving both feet, both ankles and both lower legs. Extremities exhibit normal ROM.Neuro: Oriented X 3. No motor deficit. No sensory deficit.LABS, X-RAYS, AND EKGEKG: Normal EKG.Laboratory Tests: Laboratory tests have been ordered, with results reviewed and considered in themedical decision making process. Culture, Urine: (JOSE LUIS: 04/06/2020 18:36) ( MsgRcvd 04/06/2020 18:43) Canceled SOURCE: Urine, Catheter CT CTA CHEST NON-CORONARY W CON INC PP: (JOSE LUIS: 04/06/2020 14:36) ( MsgRcvd 04/06/2020 16:55) In Progress 3 Clinical Report - Physicians/Mid Levels [facility] [address] [place] [address] Phone #: ext- [phone] 04/06/2020 12:27 Patient: HANNA GARVIN Sex: F : 1955 Age: 64yCT CTA CHEST NON-CORONARY W CON INC PPReason(s): SOB / Dyspnea / CHFTRANSPORTATION: S IV? IV?(Yes) O2? Oxygen?(Yes) RCT Abd PEL W/ IV Contrast Only: (JOSE LUIS: 04/06/2020 14:36) ( MsgRcvd 04/06/2020 16:55) In ProgressCT ABDReason(s): Abdominal DistentionTRANSPORTATION: S IV? IV?(Yes) O2? Oxygen?(Yes) R: Menopause CMTS: Severe constipationCBC w Diff: (JOSE LUIS: 04/06/2020 12:35) ( MsgRcvd 04/06/2020 14:59) Final results Test Result Flag Units (Reference) CBC W/AUTOMATED DIFF COMPLETE BLOOD COUNT WBC 15.6 H 10/uL (4.2 - 11.0) RBC 3.82 L 10/uL (4.20 - 5.40) HEMOGLOBIN 9.8 L g/dL (12.0 - 16.0) HEMATOCRIT 32.5 L % (37.0 - 47.0) MCV 85.1 fL (81.0 - 101) MCH 25.7 L pg (27.0 - 34.0) MCHC 30.2 L g/dL (31.0 - 36.0) RDW 15.9 H % (11.5 - 14.5) PLATELETS 461 H 10/uL (150 - 450) MPV 8.4 fL (7.4 - 10.4) NEUT 74.6 % (37.0 - 80.0) LYMPH 9.2 L % (25.0 - 40.0) MONO 9.3 H % (3.0 - 8.0) EOS 5.6 % (0.0 - 7.0) BASO 0.8 % (0.0 - 2.5) %IG 0.5 H % (0.0 - 0.0) %NRBC 0.0 % (0.0 - 0.0) #NEUT 11.64 H 10/uL (2.00 - 6.90) #LYMPH 1.43 10/uL (0.60 - 3.40) #MONO 1.46 H 10/uL (0.00 - 0.90) #EOS 0.88 H 10/uL (0.00 - 0.70) #BASO 0.13 10/uL (0.00 - 0.20) #IG 0.08 10/uL (0.00 - 0.10) #NRBC 0.00 10/uL (0.00 - 0.00) MANUAL DIFF SEE BELOW SEGS 78 % (37 - 80) %LYMPH 12 L % (25 - 40) %MONO 5 % (3 - 8) %EOS 5 % (0 - 7) BLASTS 0 % RBC MORPH SEE BELOW HYPO 1+ A (NORMAL: NONE { SICKLE CELL (NORMAL: NONE SEEN ) PLT EST INCREASED A (NORMAL: RAOUL COMMENT: C MP: (JOSE LUIS: 04/06/2020 12:35) ( MsgRcvd 04/06/2020 14:56) Final results 4 Clinical Report - Physicians/Mid Levels [facility] [address] [place] [address] Phone #: ext- [phone] 04/06/2020 12:27 [id number] Sex: [facility] : 1955 Age: 64y Test Result Flag Units (Reference) COMPREHENSIVE METABOLIC PANEL COMPREHENSIVE METABOLIC PANEL SODIUM 141 mEq/L (134 - 153) POTASSIUM 4.2 mEq/L (3.6 - 5.0) CHLORIDE 98 mEq/L (98 - 107) CO2 38 H MEQ/L (22 - 30) GLUCOSE 126 H MG/DL (65 - 110) BUN 19 MG/DL (7 - 21) CREATININE 0.5 L MG/DL (0.7 - 1.5) BUN/CREAT 38 H (8 - 27) TOTAL PROTEIN 6.3 G/DL (6.3 - 8.2) ALBUMIN 3.1 L G/DL (3.9 - 5.0) GLOBULIN 3.2 GM/DL (2.4 - 3.2) A/G RATIO 1.0 (0.8 - 2.0) CALCIUM 8.8 MG/DL (8.4 - 10.2) TOTAL BILI <0.7 MG/DL (0.2 - 1.3) ALKALINE PHOS 72 U/L (38 - 126) SGOT/AST 7 U/L (5 - 40) SGPT/ALT 9 U/L (7 - 56) ANION GAP 5.0 L mmol/L (8.0 - 16.0) AGE 64 yrs NON-AA GFR >60 mL/min AFR AMER GFR >60 Male GFR Interprentation 20-49 yrs >60 mL/min Jhqqrr28-50 yrs >56 mL/min Normal 60-69 yrs >49 mL/min Normal 70- 79yrs>42 mL/min Normal 80 and above >35 mL/min Normal Female GFRInterpretation 20-39 yrs >60 mL/min Normal 40-49 yrs >58 mL/minNormal 50-59 yrs >51 mL/min Normal 60-69 yrs >45 mL/min Nadagh57-69 yrs >39 mL/min Normal 80 and above >32 mL/min NormalCULTURE SPUTUM: (JOSE LUIS: 04/06/2020 12:45) ( MsgRcvd 04/06/2020 13:36) CanceledSOURCE: SputumBody Location: TracheostomyBNP: (JOSE LUIS: 04/06/2020 12:35) ( MsgRcvd 04/06/2020 13:38) Final results Test Result Flag Units (Reference) BNP 1284 H PG/ML (0 - 125)Urinalysis: (JOSE LUIS: 04/06/2020 12:40) ( MsgRcvd 04/06/2020 13:19) Final results Test Result Flag Units (Reference) URINALYSIS URINALYSIS SOURCE R COLOR yellow (NORMAL: Yello CLARITY cloudy (NORMAL: Clear SPEC GRAVITY 1.025 (1.001 - 1.030 pH 5 (5 - 9) GLUCOSE NORM (NORMAL: Negat BILIRUBIN 3 (NORMAL: Negat KETONE 5 A (NORMAL: Negat PROTEIN 100 A (NORMAL: Negat NITRITE NEG (NORMAL: Negat BLOOD 150 A (NORMAL: Negat LEUK EST 500 A (NORMAL: Negat 5 Clinical Report - Physicians/Mid Levels [facility] [address] [place] [address] Phone #: ext- [phone] 04/06/2020 12:27 Patient: HANNA GARVIN Sex: F : 1955 Age: 64y UROBILINOGEN 1 (less than 1.0 MICROSCOPIC See Below WBC 10 - 15 A (NORMAL: NONE RBC 1 - 3 (NORMAL: NONE EPITHELIAL FEW (NORMAL: NONE BACTERIA 1+ SMALL (NORMAL: NONE YEAST Many A Troponin-T: (JOSE LUIS: 04/06/2020 12:35) ( [facility] 04/06/2020 13:31) Final results Test Result Flag Units (Reference) TROPONIN T 0.02 NG/ML (0.00 - 0.10) TROPONIN T0.1 ng/ml Recommended as the clinical threshold value forTroponin T. Lactic Ac id: (JOSE LUIS: 04/06/2020 12:35) ( [facility] 04/06/2020 13:13) Final results Test Result Flag Units (Reference) LACTIC ACID 1.8 MMOL/L (0.2 - 2.2) D-Dimer: (JOSE LUIS: 04/06/2020 12:35) ( [facility] 04/06/2020 13:28) Final results Test Result Flag Units (Reference) D-DIMER QUANT 2.26 H ug/mL (0.27 - 0.50) Chest Portable 1 View: (JOSE LUIS: 04/06/2020 12:45) ( [facility] 04/06/2020 14:34) In Progress CHEST PORTABLE Reason(s): Shortness of Breath TRANSPORTATION: S IV? O2? Oxygen?(Yes) Room: E Venous Blood Gas: (JOSE LUIS: 04/06/2020 12:45) ( [facility] 04/06/2020 12:50) Canceled . Note - Tests: (PCXR - Poor inspiratory effort. CHF. Tracheostomy / Lees Rods. CT abd / pelvis - Fecal impaction, o/w no acute findings. CTA chest - No P.E.s. + Mild CHF / Pulmonary artery HTN .).PROGRESS AND PROCEDURESCourse of Care: 15:20 Apr 06 2020. 15:20 Apr 06 2020. Pt. has CHF and Lasix has been given. CTA chest and abdomen are pending. 18:26 Apr 06 2020. Pt. slightly better, but has elevated WBCs, deep sacral decubiti and CHF / respiratory insufficiency and a tracheostomy. In addition, she has severe constipation that must be addressed. I spoke with [facility] hospitalist (Dr. Houser) and he will accept pt. for transfer. I will discuss with pt. and her family. Critical care performed (130 minutes). Time is exclusive of separately billable procedures. Time includes: direct patient care, patient reassessment, coordination of patient care, interpretation of data (laboratory data, pulse oximetry and chest xrays), review of patient's medical records, medical consultation and documentation of patient care- see progress notes. Procedures included in critical care time: peripheral IV 6 Clinical Report - Physicians/Mid Levels [facility] [address] [place] [address] Phone #: ext- [phone] 04/06/2020 12:27 Patient: HANNA GARVIN Sex: F : 1955 Age: 64y placement and phlebotomy- see progress notes. Disposition: Benefits, risks and alternatives to transfer explained to patient. Transferred to [facility]. UTI (catheter associated) present prior to transfer. Summary of care (CCDA) provided to transport team, EMS, patient, family and transfer facility via paper and digital media. 18:30 Apr 06 2020 Transfer to [facility] by ambulance as per Dr. Houser (Accepting hospitalist) - 18:30 Apr 06 2020. Pressure ulcer was not present prior to transfer. Vascular infection (catheter associated) was not present prior to transfer. Surgical site infection was not present prior to transfer. An object left in surgery was not present prior to transfer. Blood incompatibility was not present prior to transfer. Air embolism was not present prior to transfer.CLINICAL IMPRESSION Chronic moderate systolic, left ventricular congestive heart failure. Acute respiratory failure with hypoxemia. Bilateral pedal edema secondary to congestive heart failure. Constipation (Severe, with impaction). Stage 4 pressure ulcer with exposed muscle and bone on the sacral area. Inflammation present. (At least 5 sacral decubiti with one down to pelvic bone). Acute urinary tract infection with cystitis associated with indwelling catheter. No hematuria.(Electronically signed by Alaina Rodríguez, Physician 04/07/2020 06:41) Name Value Range Interpretation Code Description Data [facility] rce(s) Supporting Document(s) ID Date Data Source [id number] 04/06/2020 12:33:00 PM [facility] VisitID: [id number] Date: 16:48wound culture report positive for 3 different organisms. she was transferred to [facility] and d/c. wasn't d/c onany antibiotics, results shown to Tobias Rogers who recommended septra ds 1 po BID x14 days, pt called andmade aware, [facility] [place].(Electronically signed by German Contreras RN - 04/10/2020 16:48) Name Value Range Interpretation Code Description Data [facility](s) Supporting Document(s) ID Date Data Source [id number] 04/10/2020 08:56:00 AM [facility] [address] [place] [address] PHONE: [phone] FAX: [phone] Name .................. : BHARATHI FERREIRA Acct Number.................. : [id number] ROOM. ................. : TR-05 MR Number ................... : [id number] Stay type ............. : E/R Discharge Date......... ... : 04/06/20 Admit Date .... ..... : 04/06/20 Admit Phys .................... : MANJEET TAYLOR Date of ....... : 1955 Family Phys ................... : Phone .................. : [phone] Age ................................ : 64 Film# .................. .:[id number] Sex ................................. : F Unsigned transcriptions are preliminary reports and do not represent a medical or legal document CHEST PORTABLE [id number] COMPLETE:04/06/20 14:34 ARS [id number] Reason(s): Shortness of Breath PORTABLE CHEST X-RAY: INDICATION: Shortness of breath. FINDINGS: Cephalization of the vasculature is identified and the lung bases are poorly defined. Findings suggest CHF. A tracheostomy is in place. Post surgical changes are present in the spine. IMPRESSION: Suspected CHF. Examination dictated by MARY JANE Rose. Examination was reviewed with Maggie Vines MD, radiologist at the time of this dictation. Electronically Reviewed and Signed By Maggie Vines MD , 04/10/20 08:56, KGG Transcribe Initials: SEFERINO , Transcribe Date: 04/07/20 00:23, Dictation Date: Copy for: EMERGENCY DEPT via modem Copy for: 710 MED REC DISCHARGED Page 1 of 1 Name Value Range Interpretation Code Description Data Grace rce(s) Supporting Document(s) ID Date Data Source [id number] 04/09/2020 10:05:00 AM EST [facility] [address] [place] [address] PHONE: [phone] FAX: [phone] Name .................. : BHARATHI FERREIRA Acct Number.................. : [id number] ROOM. ................. : TR-05 Number ................... : [id number] Stay type ............. : E/R Discharge Date......... ... : 04/06/20 Admit Date .... ..... : 04/06/20 Admit Phys .................... : MANJEET TAYLOR Date of ....... : 1955 Family Phys ................... : Phone .................. : [phone] Age ................................ : 64 Film# .................. .:[id number] Sex ................................. : F Unsigned transcriptions are preliminary reports and do not represent a medical or legal document CT CTA CHEST NON-CORONARY W [place] [id number] COMPLETE:04/06/20 16:55 KJE [id number] Reason(s): SOB / Dyspnea / CHF CTA OF THE CHEST WITH CONTRAST: HISTORY: Shortness of breath with dyspnea and CHF. COMPARISON: Portable chest radiograph from this same date. FINDINGS: Pulmonary arteries: Adequately opacified and moderately enlarged. No acute pulmonary embolism. No right heart strain. Lower neck: No acute findings. Lungs: Clear other than dependent atelectasis. No pleural effusion. Patent central airways. No suspicious nodule. Mediastinum: Moderate cardiomegaly. Normal caliber thoracic aorta with mild atherosclerotic disease of the thoracic aorta. Lung blair: No hilar, mediastinal or axillary adenopathy. Bones: No acute or suspicious osseous abnormality. Upper thoracic effusion. IMPRESSION: 1. No pulmonary embolism. 2. Mild congestive heart failure with pulmonary artery hypertension. While performing the above CT examination, radiation dose reduction was accomplished utilizing automated exposure control, adjusting of the mA and kV based on the patient's body size and/or the use of imperative reconstructive techniques. CT dose: 2518.8 mGycm Page 1 of 2 [facility] [address] [place] [address] PHONE: [phone] FAX: [phone] Name .................. : BHARATHI FERREIRA Acct Number.................. : [id number] ROOM. ................. : TR-05 MR Number ................... : [id number] Stay type ............. : E/R Discharge Date......... ... : 04/06/20 Admit Date ......... : 04/06/20 Admit Phys .................... : MANJEET TAYLOR Date of ....... : 1955 Family Phys ................... : Phone .................. : [phone] Age ................................ : 64 Film# .................. .:[id number] Sex ................................. : F Unsigned transcriptions are preliminary reports and do not represent a medical or legal document CT CTA CHEST NON-CORONARY W C [id number] COMPLETE:04/06/20 16:55 KJE [id number] Reason(s): SOB / Dyspnea / CHF Contrast agent in mL: 75 Isovue 370 Method of administration: Intravenous Electronically Reviewed and Signed By Royal Tate MD , 04/09/20 10:05, APChristian Transcribe Initials: DZ , Transcribe Date: 04/06/20 23:14, Dictation Date: Copy for: EMERGENCY DEPT via modem Copy for: 710 MED REC DISCHARGED Page 2 of 2 Name Value Range Interpretation Code Description Data Grace rce(s) Supporting Document(s) ID Date Data Source [id number] 04/09/2020 09:58:00 AM EST [facility] [address] [place] [address] PHONE: [phone] FAX: [phone] Name .................. : BHARATHI FERREIRA Acct Number.................. : [id number] ROOM. ................. : TR-05 Number ................... : [id number] Stay type ............. : E/R Discharge Date......... ... : 04/06/20 Admit Date .... ..... : 04/06/20 Admit Phys .................... : JUVENTINO BRANDON Date of ....... : 1955 Family Phys ................... : Phone .................. : [phone] Age ................................ : 64 Film# .................. .:[id number] Sex ................................. : F Unsigned transcriptions are preliminary reports and do not represent a medical or legal document CT ABD & PELVIS W/ IV ONLY [id number] COMPLETE:04/06/20 16:55 E [id number] Reason(s): Abdominal Distention CT OF THE ABDOMEN AND PELVIS WITH CONTRAST: HISTORY: Abdominal distention. COMPARISON: None available. FINDINGS: Lung bases: Clear. Liver: Normal contour. No focal hepatic lesion. Biliary system: Status post cholecystectomy. No biliary dilatation. Pancreas: Normal. Spleen: Unremarkable. Adrenal glands: Normal. Kidneys: Benign renal cortical cysts bilaterally. Moderate lobulation. No mass l esion. Bowel: Normal caliber. Large distal rectal stool compatible with impaction. No wall thickening or edema. Peritoneum: No free air or ascites. Lymph nodes: No adenopathy. Vessels: Mild atherosclerotic calcification. No aneurysm. Osseous structures: No acute or suspicious osseous abnormality. Page 1 of 2 [facility] [address] [place] [address] PHONE: [phone] FAX: [phone] Name .................. : BHARATHI FERREIRA Acct Number.................. : [id number] ROOM. ................. : TR-05 Number ................... : [id number] Stay type ............. : E/R Discharge Date......... ... : 04/06/20 Admit Date ......... : 04/06/20 Admit Phys .................... : MANJEET TAYLOR Date of ....... : 1955 Family Phys ................... : Phone .................. : [phone] Age ................................ : 64 Film# .................. .:[id number] Sex ................................. : F Unsigned transcriptions are preliminary reports and do not represent a medical or legal document CT ABD & PELVIS W/ IV ONLY [id number] COMPLETE:04/06/20 16:55 KJE [id number] Reason(s): Abdominal Distention Urinary bladder: No focal abnormality. IMPRESSION: Large amount of rectal stool compatible with fecal impaction. No acute findings otherwise. While performing the above CT examination, radiation dose reduction was accomplished utilizing automated exposure control, adjusting of the mA and kV based on the patient's body size and/or the use of imperative reconstructive techniques. CT dose: 2518.8 mGycm Contrast agent in mL: 75 Isovue 370 Method of administration: Intravenous Electronically Reviewed and Signed By Royal Tate MD , 04/09/20 09:58, APM Transcribe Initials: DZ , Transcribe Date: 04/07/20 00:38, Dictation Date: Copy for: EMERGENCY DEPT via [facility] [place] Copy for: 710 MED REC DISCHARGED Page 2 of 2 Name Value Range Interpretation Code Description Data Grace rce(s) Supporting Document(s) ID Date Data Source [id number] 04/09/2020 09:24:[address] [facility] [address] [place] [address] RESPIRATORY CARE REPORT ==== ---------NAME------- NUMBER SEX AGE ADMIT DISC. XRAY# F/C LES FERREIRA [id number] F 64 04/06/20 04/06/20 [id number] X6B E/R DATE OF : 1955 M/R# [id number] #: [id number] TR-05 LOCATION: EMERGENCY DEPT [facility] [address] COMPLE TE:04/06/20 13:55 [facility] [address] PHYSICIAN: MANJEET TAYLOR Name Value Range Interpretation Code Description Data Grace rce(s) Supporting Document(s) ID Date Data Source [id number] 04/10/2020 10:02:00 AM EST [facility] Name Value Range Interpretation Code Description Data Grace rce(s) Supporting Document(s) CULTURE WOUND [facility] CORRECTE D REPORT _CULTURE WOUND_$$[id number]$$[id number]$$[id number]$$[id number]$$[id number]$$[id number] DATE/TIME: 04/10/2020 08:08Culture: CULTURE WOUND Status: FinalIsolate 1 Klebsiella pneumoniae Flag: A . . . . . . .5Heavy growth Previous result entered on 04/09/2020 09:46 ET Klebsiella pneumoniae Previous result entered on 04/08/2020 06:45 ET Gram negative rodsAerobic Bacterial Culture: [id number] pneumoniae Flag: AIsolate 2 Pseudomonas aeruginosa Flag: A . . . . . . .5Moderate growth Previous result entered on 04/09/2020 09:46 ET Pseudomonas aeruginosa Previous result entered on 04/08/2020 06:45 ET Gram negative rodsPseudomonas aeruginosa Flag: A -- Continued on next page --Patient: BHARATHI FERREIRA Order: [id number] Page 2Culture: CULTURE WOUND Status: Final ====Isolate 3 Staphylococcus aureus Flag: AScant growthMethicillin resistant (MRSA)Based on resistance to oxacillin this isolate would be resistant toall currently available beta-lactam antimicrobial agents, with theexception of the newer cephalosporins with anti-MRSA activity, such asCeftaroline Previous result entered on 04/09/2020 09:46 ET Microbiological testing to rule out the presence of possible pathogensis in progress. Previous result entered on 04/08/2020 06:45 ET Microbiological testing to rule out the presence of possible pathogensis in progress.Staphylococcus aureus Flag: APatient: BHARATHI FERREIRA Order: [id number] Page 3Culture: CULTURE WOUND Status: Final ====ISOLATE 1 Klebsiella pneumoniaeISOLATE 2 Pseudomonas aeruginosaISOLATE 3 Staphylococcus aureus Isolate 1 Isolate 2 Isolate 3Antibiotic PARISA Int PARISA Int PARISA IntUnits ug/mL ug/mL ug/mL ----Amikacin Amoxicillin/Clavulanic Acid S S Ampicillin R R Cefepime S S Ceftazidime Ceftriaxone S S Cefuroxime S S Ciprofloxacin S S Clindamycin Ertapenem S S Erythromycin Gentamicin S S Imipenem S S Levofloxacin S S Linezolid Meropenem S S Oxacillin Penicillin Piperacillin Piperacillin/Tazobactam S S Rifampin Tetracycline S S Ticarcillin Tobramycin S S Trime thoprim/Sulfa S S Vancomycin P1 Test performed by: [facility] Britney VELEZ #: [id number] [address] [place] [phone] [facility] [address]Fdtqerz Director : David Franklin MD NPI #:Shipping And Receiving Material Handler : 04/09/20.0540.XMT.SENT REF 04/09/20.0705.XMT.SENT REF 04/09/20.1844.XMT.SENT REF -- Continued on next page --Patient: BHARATHI FERREIRA Order: [id number] Page 4Culture: CULTURE WOUND Status: Final ==== Isolate 1 Isolate 2 Isolate 3Antibiotic PARISA Int PARISA Int PARISA IntUnits ug/mL ug/mL ug/mL ---- FOLLOWING RESULTS REPORTED IN ERROR REPORTED DATE/TIME: 04/09/2020 10:06Culture: CULTURE WOUND Status: PrelimMicrobiological testing to rule out the presence of possiblepathogens is in progress.Culture: CULTURE WOUND Status: PrelimCulture: CULTURE WOUND Status: Prelim Isolate 1 Isolate 2Antibiotic PARISA Int PARISA IntUnits ug/mL ug/mLAmikacin Amoxicillin/Clavulanic Acid S S Ampicillin R R Cefepime S S Ceftazidime Ceftriaxone S S Cefuroxime S S Ciprofloxacin S S Ertapenem S S Gentamicin S S Imipenem S S Levofloxacin S S Meropenem S S Piperacillin Piperacillin/Tazobactam S S Tetracycline S S Ticarcillin Tobramycin S S Trimethoprim/Sulfa S S ID Date Data Source [id number] 04/11/2020 06:36:00 PM [facility] [address] Name Value Range Interpretation Code Description Data Grace rce(s) Supporting Document(s) Bacteria identified in Blood by Culture [facility] NO GROWTH AFTER 5 DAYS ID Date Data Source [id number] 04/14/2020 09:04:00 AM [facility] Name Value Range Interpretation Code Description Data Grace rce(s) Supporting Document(s) CULTURE URINE [facility] _CULTURE URINE_$$[id number]$$[id number]$$[id number]$$100885$$298921$$832640$$165798$$852722$$480979$$ 886716$$089132$$464685$$292447$$552312$$292240$$658556$$809677$$889601$$218187$$ 075256$$992454$$064555$$007962$$712797$$065839$$100171$$[id number] -- Continued on next page --Patient: BHARATHI FERREIRA Order: [id number] Page 2Culture: CULTURE URINE Status: Final ==== -- Continued on next page --Patient: BHARATHI FERREIRA Order: [id number] Page 2Culture: CULTURE URINE Status: Prelim =====$$[id number]$$[id number] DATE/TIME: 04/09/2020 13:05Culture: CULTURE URINE Status: FinalIsolate 1 Yeast Flag: A . . . . . . .8cyabxfdl08,000-100,000 colony forming units per mLRequest for further identification must be madewithin 1 week. Previous result entered on 04/08/2020 01:01 ET Microbiological testing to rule out the presence of possible pathogensis in progress.Urine Culture,Comprehensive: [id number] Flag: AP1 Test performed by: [facility] CLIA #: [id number] [id number] [facility] [address]Tezytdn Director : David Franklin MD NPI #:Shipping And Receiving Material Handler : 04/09/20.0540.XMT.SENT REF 04/14/20.0726.XMT.SENT REF 04/14/20.0904.XMT.SENT REF ID Date Data Source [id number] 04/14/2020 07:18:00 AM EST [facility] Name Value Range Interpretation Code Description Data Grace rce(s) Supporting Document(s) CULTURE BLOOD [facility] _CULTURE BLOOD_ [place] [address] CLIA# [id number] SEE SCANNED REPORT{ PRELIM ID Date Data Source [id number] 04/10/2020 10:02:00 AM [facility] Name Value Range Interpretation Code Description Data Grace rce(s) Supporting Document(s) CULTURE WOUND [facility] _CULTURE WOUND_$$[id number]$$[id number]$$99 7878$$055869$$[id number]$$[id number] DATE/TIME: 04/10/2020 08:08Culture: CULTURE WOUND Status: PrelimAerobic Bacterial Culture: M1Wunzsfjlmaraioc testing to rule out the presence of possiblepathogens is in progress.Isolate 1 Klebsiella pneumoniae Flag: A . . . . . . .5Heavy growth Previous result entered on 04/09/2020 09:46 ET Gram negative rods Previous result entered on 04/08/2020 06:45 ET Specimen has been received and testing has been initiated.Klebsiella pneumoniae Flag: APatient: BHARATHI FERREIRA Order: [id number] Page 2Culture: CULTURE WOUND Status: Prelim =====ISOLATE 1 Klebsiella pneumoniae Isolate 1Antibiotic PARISA IntUnits ug/mL Amoxicillin/Clavulanic Acid S S . . . . . .20-8Ampicillin R R . . . . . .28-1Cefepime S S . . . . . .6644-9Ceftriaxon e S S . . . . . .141-2Cefuroxime S S . . . . . .145- 3Ciprofloxacin S S . . . . . .185-9Ertapenem S S . . . . . .07121-5Yzkueemqfy S S . . . . . .267-5Imipenem S S . . . . . .279-0Levofloxacin S S . . . . . .97708-6Tvjrraurw S S . . . . . .6652-2Piperacillin/Tazobactam S S . . . . . .412- 7Tetracycline S S . . . . . .496-0Tobramycin S S . . . . . .508-2Trimethoprim/Sulfa S S . . . . . .516-5P1 Test performed by: [facility] #: [id number] [address] [place] [id number] [facility] [address]Pbojgij Director : David Franklin MD NPI #:Shipping And Receiving Material Handler : 04/09/20.0540.XMT.SENT REF 04/09/20.1844.XMT.SENT REF 04/10/20.1003.XMT.SENT REF ID Date Data Source [id number] 04/06/2020 01:18:00 PM [facility] Name Value Range Interpretation Code Description Data Grace rce(s) Supporting Document(s) [facility]YS[facility] SOURCE R [facility] COLOR yellow NORMAL: Yellow [facility] CLARITY cloudy NORMAL: Clear [facility] spital Specific gravity of Urine by Test strip 1.025 1.001 - 1.030 [facility] pH 5 5 - 9 [facility] Glucose [Mass/volume] in Urine by Test strip NORM NORMAL: [facility]at [facility] Bilirubin.total [Presence] in Urine by Test strip 3 NORMAL: Negative [facility] Ketones [Presence] in Urine by Test strip 5 NORMAL: Negative [facility] Protein [Mass/volume] in Urine by Test strip 100 NORMAL: Negat [facility] Nitrite [Presence] in Urine by Test strip NEG NORMAL: Negative [facility] BLOOD 150 NORMAL: Negative [facility] Leukocyte esterase [Presence] in Urine by Test strip 500 RAOUL L: Negative [facility] Urobilinogen [Mass/volume] in Urine by Test strip 1 less onofre n 1.0 mg/dL [facility] MICROSCOPIC See Below [facility] ital WBC 10 - 15 NORMAL: NONE SEEN [facility] Erythrocytes [#/volume] in Urine by Test strip 1 - 3 NORMAL: NON E SEEN [facility] EPITHELIAL FEW NORMAL: NONE SEEN [facility] Bacteria [Presence] in Urine sediment by Light microscopy 1+ SMALL NORMAL: NONE SEEN [facility] YEAST Many A [facility] ID Date Data Source [id number] 04/14/2020 07:18:00 AM [facility] Name Value Range Interpretation Code Description Data Grace rce(s) Supporting Document(s) CULTURE BLOOD [facility] _CULTURE BLOOD_ TEST PERFORM ED AT [address] [address] CLIA# [id number] SEE SCANNED REPORT{ PRELIM ID Date Data Source [id number] 04/06/2020 02:57:00 PM [facility] Name Value Range Interpretation Code Description Data Grace rce(s) Supporting Document(s) CBC W/AUTOMATED DIFF [facility] COMPLETE BLOOD COUNT Leukocytes [#/volume] in Blood by Automated count 15.6 10^3/uL 4.2 - 11.0 H [facility] Erythrocytes [#/volume] in Blood by Automated count 3.82 10^6/uL 4. 20 - 5.40 L [facility] Hemoglobin [Mass/volume] in Blood 9.8 g/dL 12.0 - 16.0 L [facility] Hematocrit [Volume Fraction] of Blood by Automated count 32.5 % 3 7.0 - 47.0 L [facility] Erythrocyte mean corpuscular volume [Entitic volume] by Auto mated count 85.1 fL 81.0 - 101 [facility] Erythrocyte mean corpuscular hemoglobin [Entitic mass] by Automated count 25.7 pg 27.0 - 34.0 L [facility] Erythrocyte mean corpuscular hemoglobin concentration [Mass/volume] by Automated count 30.2 g/dL 31.0 - 36.0 L [facility] Erythrocyte distribution width [Ratio] by Automated count 15.9 % 11.5 - 14.5 H [facility] Platelets [#/volume] in Blood by Automated count 461 10^3/uL 150 - 45 0 H [facility] Platelet mean volume [Entitic volume] in Blood by Automated count 8.4 fL 7.4 - 10.4 [facility] Neutrophils/100 leukocytes in Blood by Automated count 74.6 % 37. 0 - 80.0 [facility] Lymphocytes/100 leukocytes in Blood by Manual count 9.2 % 25.0 - 40.0 L [facility] Monocytes/100 leukocytes in Blood by Automated count 9.3 % 3.0 - 8.0 H [facility] Eosinophils/100 leukocytes in Blood by Automated count 5.6 % 0.0 - 7.0 [facility] Basophils/100 leukocytes in Blood by Automated count 0.8 % 0.0 - 2.5 [facility] %IG 0.5 % 0.0 - 0.0 H [facility] %NRBC 0.0 % 0.0 - 0.0 [facility] Neutrophils [#/volume] in Blood by Automated count 11.64 10^3/uL 2. 00 - 6.90 H [facility] Lymphocytes [#/volume] in Blood by Automated count 1.43 10^3/uL 0.60 - 3.40 [facility] Monocytes [#/volume] in Blood by Automated count 1.46 10^3/uL 0.00 - 0.90 H [facility] Eosinophils [#/volume] in Blood by Automated count 0.88 10^3/uL 0.00 - 0.70 H [facility] Basophils [#/volume] in Blood by Automated count 0.13 10^3/uL 0.00 - 0.20 [facility] #IG 0.08 10^3/uL 0.00 - 0.10 [facility] #NRBC 0.00 10^3/uL 0.00 - 0.00 [facility] ospital MANUAL DIFF SEE BELOW [facility] ital Segmented neutrophils/100 leukocytes in Blood by Manual count 78 % 37 - 80 [facility] %LYMPH 12 % 25 - 40 L [facility] %MONO 5 % 3 - 8 [facility] %EOS 5 % 0 - 7 [facility] Blasts/100 leukocytes in Blood by Manual count 0 % [facility] RBC MORPH SEE BELOW [facility] al HYPO 1+ NORMAL: NONE SEEN A [facility] { SICKLE CELL (NORMAL: NONE SEEN ) Platelet adequacy [Presence] in Blood by Light microscopy IN CREASED NORMAL: NORMAL A [facility] COMMENT: ID Date Data Source [id number] 04/06/2020 02:56:00 PM EST [facility] Name Value Range Interpretation Code Description Data Grace rce(s) Supporting Document(s) COMPREHENSIVE METABOLIC PANEL [facility] COMPREHENSIVE METABOLIC PANEL Sodium [Moles/volume] in Serum or Plasma 141 mEq/L 134 - 153 [facility] Potassium [Moles/volume] in Serum or Plasma 4.2 mEq/L 3.6 - 5.0 [facility] Chloride [Moles/volume] in Serum or Plasma 98 mEq/L 98 - 107 [facility] Carbon dioxide, total [Moles/volume] in Serum or Plasma 38 MEQ/L 22 - 30 H [facility] Glucose [Mass/volume] in Serum or Plasma 126 MG/DL 65 - 110 H [facility] BUN 19 MG/DL 7 - 21 [facility] Creatinine [Mass/volume] in Serum or Plasma 0.5 MG/DL 0.7 - 1.5 L [facility] BUN/CREAT 38 8 - 27 H [facility] Protein [Mass/volume] in Serum or Plasma 6.3 G/DL 6.3 - 8.2 [facility] Albumin [Mass/volume] in Serum or Plasma 3.1 G/DL 3.9 - 5.0 L [facility] Globulin [Mass/volume] in Serum by calculation 3.2 GM/DL 2.4 - 3.2 [facility] A/G RATIO 1.0 0.8 - 2.0 [facility] Calcium [Mass/volume] in Serum or Plasma 8.8 MG/DL 8.4 - 10.2 [facility] Bilirubin.total [Mass/volume] in Serum or Plasma <0.7 MG/DL 0.2 - 1.3 [facility] Alkaline phosphatase [Enzymatic activity/volume] in Serum or Plasma 72 U/L 38 - 126 [facility] Aspartate aminotransferase [Enzymatic activity/volume] in Se rum or Plasma 7 U/L 5 - 40 [facility] Alanine aminotransferase [Enzymatic activity/volume] in Seru m or Plasma 9 U/L 7 - 56 [facility] Anion gap 3 in Serum or Plasma 5.0 mmol/L 8.0 - 16.0 L [facility] AGE 64 yrs [facility] NON-AA GFR >60 mL/min [facility] AFR AMER GFR >60 [facility] Male GFR In terprentation 20-49 yrs >60 mL/min Normal 50-59 yrs >56 mL/min Normal 60-69 yrs >49 mL/min Normal 70-79yrs >42 mL/min Normal 80 and above >35 mL/min Normal Female GFR Interpretation 20-39 yrs >60 mL/min Normal 40-49 yrs >58 mL/min Normal 50-59 yrs >51 mL/min Normal 60-69 yrs >45 mL/min Normal 70-79 yrs >39 mL/min Normal 80 and above >32 mL/min Normal ID Date Data Source [id number] 04/06/2020 01:38:00 PM [facility] Name Value Range Interpretation Code Description Data Grace rce(s) Supporting Document(s) BNP 1284 PG/ML 0 - 125 H [facility] ID Date Data Source [id number] 04/06/2020 01:31:00 PM [facility] Value Range Interpretation Code Description Data Grace rce(s) Supporting Document(s) TROPONIN T 0.02 NG/ML 0.00 - 0.10 [facility] spital TROPONIN T0.1 ng/ml Recommended as the c linical threshold value forTroponin T. ID Date Data Source [id number] 04/06/2020 01:28:00 PM [facility] Name Value Range Interpretation Code Description Data Grace rce(s) Supporting Document(s) Fibrin D-dimer FEU [Mass/volume] in Platelet poor plasma 2.26 ug /mL 0.27 - 0.50 H [facility] ID Date Data Source [id number] 04/06/2020 01:11:00 PM [facility] Value Range Interpretation Code Description Data Grace rce(s) Supporting Document(s) Lactate [Moles/volume] in Serum or Plasma 1.8 MMOL/L 0.2 - 2.2 [facility] ID Date Data Source [id number] 02/20/2020 10:18:06 AM EDT [facility] Name Value Range Interpretation Code Description Data Grace rce(s) Supporting Document(s) Discharge Summary [facility] GIVPHj1aAgLHOgGi72/BDMwnZBJol6BlGGdvRRx3VGrkAJBcG2KvZNY0iL1jMOW7OPkUFeDrOiHsAXDg lbm [file] [facility]+Mk030Qxk+14fp5mg3gFgsfXtPMAD/gXdXw/FHFXTZkoJ4gZjUieWlaSlxxlJeKc4irKuB5/G2C0w [file] AgICAgICAgICAgICAgICAgICAgICAgICAgICAgICAgICAgICAgICAgICAgICAgICAgICAgICAgICAgIC AgICAgICAgICAgICAgICAgICAgICAgICAgICAgICAg ICAgICAgICANCiAgICAgICAgICAgICAgICAgICAgICAgICAgICAgICAgICAgICAgICAgICAgICAgICAg ICAgICAgICAgICAgICAgICAgICAgICAgICAgICAgICAgICAgICAgICAgICAgICAgICANCiAgICAgICAg ICAgICAgICAgICAgICAgICAgICAgICAgICAgICAgIC AgICAgICAgICAgICAgICAgICAgICAgICAgICAgICAgICAgICAgICAgICAgICAgICAgICAgICAgICAgIC ANCiAgICAgICAgICAgICAgICAgICAgICAgICAgICAgICAgICAgICAgICAgICAgICAgICAgICAgICAgIC AgICAgICAgICAgICAgICAgICAgICAgICAgICAgICAg ICAgICAgICAgICANCiAgICAgICAgICAgICAgICAgICAgICAgICAgICAgICAgICAgICAgICAgICAgICAg ICAgICAgICAgICAgICAgICAgICAgICAgICAgICAgICAgICAgICAgICAgICAgICAgICAgICANCiAgICAg ICAgICAgICAgICAgICAgICAgICAgICAgICAgICAgIC AgICAgICAgICAgICAgICAgICAgICAgICAgICAgICAgICAgICAgICAgICAgICAgICAgICAgICAgICAgIC AgICANCiAgICAgICAgICAgICAgICAgICAgICAgICAgICAgICAgICAgICAgICAgICAgICAgICAgICAgIC AgICAgICAgICAgICAgICAgICAgICAgICAgICAgICAg ICAgICAgICAgICAgICANCiAgICAgICAgICAgICAgICAgICAgICAgICAgICAgICAgICAgICAgICAgICAg ICAgICAgICAgICAgICAgICAgICAgICAgICAgICAgICAgICAgICAgICAgICAgICAgICAgICAgICANCiAg ICAgICAgICAgICAgICAgICAgICAgICAgICAgICAgIC AgICAgICAgICAgICAgICAgICAgICAgICAgICAgICAgICAgICAgICAgICAgICAgICAgICAgICAgICAgIC AgICAgICANCiAgICAgICAgICAgICAgICAgICAgICAgICAgICAgICAgICAgICAgICAgICAgICAgICAgIC AgICAgICAgICAgICAgICAgICAgICAgICAgICAgICAg ICAgICAgICAgICAgICAgICANCjw/oGElI3qhrFWnoeX0G9cdIr4YQl6BLA1zx0PnTQLqVQqkqmSjQmqF WyFgKGDyYxxHBob0LKohWZ8KzYAaE1TvP9WsKEwoAN3LDFEjGVEcnYVoFSSyYDRmIgL2RPSnOKscJQ1R aWRzIFsgNSAwIFIgNyAwIFIgOSAwIFIgMTEgMCBSID DhBRBlLxHkEIQkOEXaOJvpEVQTYTG4OPWcQvEqHIDoUAXoHaBzKSFJZLW0CEUbIlCwMYnmKU2Ep0YxmR EcQR4JUf1QUzUiJU8lbl1LXRQjXOLgXzuVNvq7DJrwTZ9MdQHgoQG6NXWrBPFAVhClC8fyx8WjFJMzLL HRABopFM5Gi6UtfXNePHc+Qr4FSK5ny9EfBUv6QWYn DM8dkl0GYWbBOmEgL2EniDtuBTBey9QuDXJrLLJLmY9xMDY6XRS5RKp0g9DyrhDJDCmymkOpLO5mHHKC PLR9CBbyURltWfEdUWQfJUaoKRNPUDsHIkExU1Sib7GzNbC7EAScKmNfMAqpIYMnRwP1XS89rRypEQ1G HFDbUSPqJG48PEAcCMHgSr2IFu9FHdHuKF7tfm8WTH TqHGGrPmfQQhi1NIcfGN6HuNAvK3InuWIfo7fKHbEbL3DDBXIjAIOhZv3KVYZrVvDpFFDxRKeeCM5pOV EePTXPsEuubqO8TW2AGL9pyzWgDX1YFzJeIw7oRv8GJsQzL3TgE9AfYAEuUOBMEOssLN1GOVbgCM0oJO 0Oz6BVhYDfzY0sym5ZPTJoSOFeVnicnj8GJfqgK7G8 aWzwLKPpTDXySBZVIWirKT4MXCHrLVB2TKC5TzOvFUAOLpJpD50fIU2FU6Zso98yXuU4RIIkThYkTXnq CW03jDgurxOhnRVbvFwdJP3OJv7+DWdyfeUxXrpGYmmfYZLHFmCdVNNEHrEvCXNyFOYiWHTgYjQ4VvFw Je4NJDVdTGVsXXNoAxWbBTBmGCApREpbTMZuCKSpYX zqLMJmSFXjQM8HGnIfLXLlSlC3JcNnJRNvCSHqkk7ETHDvPIIzTRS3IqTdVQEyPFDvLDjoTCBkTCZpFu EtIYEhIBIrHG4FQmMjRMVnGGJ1TpRnJTFbIHModx2NDJAtMAWqQUCvMALiMBYbZTYtCQgsKIYdDTP1Kc K6LYNpKDIoDT3KHyKmNYSpQPW8LAIfYXOgBYBoes9R YTTeFBKrFQP8ZQRhWBBrHVDcSSiaVZDxVATsWEI2ADArCUToEB8FDbXpIZClDYH2UdRkMUImMXWipa3G DLDgLCNtTjF6VpRcROEwRJZkEGvjRCXrGJI6RrFxWIUlTHAoPC6NCyInLPFrQlN9HFTuJUVzVLOlxg2G SKMbHQJwNOw3PvIaZFCwTZDiNKrwICGiPKO5JAD5KE IqDVWsBO6MIxZyWIIvEtUpUWZiWBSuSQPupj6KTDOgDENyDuizReCbYCIqNOThERzwLBLeTOR1NHZ1RD FtTYBtJM1ECyAvPUAkVvcrTINhPFLyKBNxsc6FGKWkYNCfUQCvNrKsHNJtEWOlCOneRMCmLGVdKLN3XT VlQAMiZI9AQePtCFIyTxOvIUMfRVMrTKMqza4VAVDk FTLgFGAeQdCbKBPmAUDkUPkoVKZyYTU3IkZiDGWcMMWxTR6HLxKdIJNlRgOxFASxTHMdYTPfvb0EZGJb GXXkLwY7GLWhKCFwYXEmDCzsMNYxJYS4YwjxJNQvDGWhTZ1GQeLnHPLbEyh7XkBnINWeLSNrew9KPRXs JHMpIihaUBGoPXBbGCOvHYadOOWkZLR7ZUDjFEMbNW MiKA7OCsTsZHRqLfr9MLTaIYTzMHRdca3QXMBbXXOhDPI9AqSaHSJqJOAsSUbsIPCvACY6ExznSONqMQ OeLL9QNhTdKDQgSVNqUnNxDXRxHJXdki1WWBLvAUL1MRMxXWUzNUVgIRXgOYulCYFaBQAtJxJzZYChXA SzBZ6UWkCmXJFxVPOdQzFnRVBfUTHfop9XVKSvAVZ2 TdB6QyBmABQuUYAlXQpqKNVkQJFsFvHoXKFnSGPhHN0INqAnKIAaBVQ0FBYsOWTmTRUepn9TSXVaUFS4 Jgu4ZfHyAGJbAZLgECevIDXrYIQ0LKYdEOSfPJGcBZ4DOkZqDKFhJNpeCKtsMDHwARUpra0DWMRkTSN1 FJR2SSErDVAhOPUfPSjsJTVcVUI8RdKfECVmVIOyAT 1EKzQfSZMwKQn1YPyrVHReIPMfeo5TNKXhZFC0ECeeQiFvOAZaWTHyWUzjKWVjWOJ3ZSfhUGEwSMXmKF 1OIoYjVKFvEbIaXrnyGYYiTLBcrt4MFNWqCGH2LKSqGcTpSXJbRXPyKCtxGSRhSOLfOENjPKEkMSUoVR 0ZNyEpCFBeNlEfAXXvHWObXHHhts5VJPSeQHK8RzJ4 LOPlTZYnTHPyPNn9xcRxwMJyHLu7LZ5NC0XvodWuLCSZDq8Fx978JCE9FGUuSq6GC6lpCh9jNYRxLPGI Nb6YJAg8JQHiBPM3A7RgUbFnBqc4RkP9MwAqX7Q3VBs8BaW1ODL+NAi8WqZpJTs7BcQ4DXZaWoqvACy6 BOJ9PKuhNGofCsLhOb9lRBCJGl5+EHskyMUqfLyxWJQCUeTkJJK4CIthOBRRWd5L ID Date Data Source [id number] 02/16/2020 07:20:24 AM EDT [facility] Name Value Range Interpretation Code Description Data Grace rce(s) Supporting Document(s) Leukocytes [#/volume] in Blood by Automated count 8.4 10*3/uL 4-10 [facility] Erythrocytes [#/volume] in Blood by Automated count 3.91 10*6/uL 4.1- 5.3 L [facility] Hemoglobin [Mass/volume] in Blood 10.5 g/dL 11.5-15.5 L [facility] Hematocrit [Volume Fraction] of Blood by Automated count 33.2 % 3 6-45 L [facility] Erythrocyte mean corpuscular volume [Entitic volume] by Auto mated count 84.8 fL 80-96 [facility] Erythrocyte mean corpuscular hemoglobin [Entitic mass] by Automated count 26.7 pg 27-33 L [facility] Erythrocyte mean corpuscular hemoglobin concentration [Mass/volume] by Automated [facility] 31.5 g[facility] [Ratio] by Automated count 15.8 % 11.5-14.5 H [facility] Platelets [#/volume] in Blood by Automated count 373 10*3/uL 150-400 [facility] Differential cell count method - Blood [facility] Neutrophils/100 leukocytes in Blood by Automated count 67 % [facility] Lymphocytes/100 leukocytes in Blood by Automated count 15 % [facility] Monocytes/100 leukocytes in Blood by Automated count 11 % [facility] Eosinophils/100 leukocytes in Blood by Automated count 6 % [facility] Basophils/100 leukocytes in Blood by Automated count 1 % [facility] Neutrophils [#/volume] in Blood by Automated count 5.74 10*3/uL 1.8-7 .0 [facility] Lymphocytes [#/volume] in Blood by Automated count 1.23 10*3/uL 1.2-4 .0 [facility] Monocytes [#/volume] in Blood by Automated count 0.94 10*3/uL 0-0.8 H [facility] Eosinophils [#/volume] in Blood by Automated count 0.46 10*3/uL 0-0.5 [facility] Basophils [#/volume] in Blood by Automated count 0.08 10*3/uL 0-0.2 [facility] Nucleated erythrocytes/100 leukocytes [Ratio] in Blood by Automated count 0 /100{WBCs} 0-0 [facility] ID Date Data Source [id number] 02/16/2020 09:25:22 AM EDT [facility] Name Value Range Interpretation Code Description Data Grace rce(s) Supporting Document(s) Magnesium [Mass/volume] in Serum or Plasma 1.7 mg/dL 1.6-2.4 [facility] ID Date Data Source [id number] 02/13/2020 06:36:[address] [facility] Name Value Range Interpretation Code Description Data Grace rce(s) Supporting Document(s) Leukocytes [#/volume] in Blood by Automated count 9.5 10*3/uL 4-10 [facility] Erythrocytes [#/volume] in Blood by Automated count 3.79 10*6/uL 4.1- 5.3 L [facility] Hemoglobin [Mass/volume] in Blood 10.4 g/dL 11.5-15.5 L [facility] Hematocrit [Volume Fraction] of Blood by Automated count 31.7 % 3 6-45 L [facility] Erythrocyte mean corpuscular volume [Entitic volume] by Auto mated count 83.6 fL 80-96 [facility] Erythrocyte mean corpuscular hemoglobin [Entitic mass] by Automated count 27.4 pg 27-33 [facility] Erythrocyte mean corpuscular hemoglobin concentration [Mass/volume] by Automated count 32.8 g/dL 32.0-36.[facility] [Ratio] by Automated count 16.0 % 11.5-14.5 H [facility] Platelets [#/volume] in Blood by Automated count 374 10*3/uL 150-400 [facility] Differential cell count method - Blood [facility] Neutrophils/100 leukocytes in Blood by Automated count 64 % [facility] Lymphocytes/100 leukocytes in Blood by Automated count 21 % [facility] Monocytes/100 leukocytes in Blood by Automated count 10 % [facility] Eosinophils/100 leukocytes in Blood by Automated count 4 % [facility] Basophils/100 leukocytes in Blood by Automated count 1 % [facility] Neutrophils [#/volume] in Blood by Automated count 6.18 10*3/uL 1.8-7 .0 [facility] Lymphocytes [#/volume] in Blood by Automated count 1.95 10*3/uL 1.2-4 .0 [facility] Monocytes [#/volume] in Blood by Automated count 0.91 10*3/uL 0-0.8 H [facility] Eosinophils [#/volume] in Blood by Automated count 0.34 10*3/uL 0-0.5 [facility] Basophils [#/volume] in Blood by Automated count 0.10 10*3/uL 0-0.2 [facility] Nucleated erythrocytes/100 leukocytes [Ratio] in Blood by Automated count 0 /100{WBCs} 0-0 [facility] ID Date Data Source [id number] 02/13/2020 07:04:[address] [facility] Name Value Range Interpretation Code Description Data Grace rce(s) Supporting Document(s) Magnesium [Mass/volume] in Serum or Plasma 1.8 mg/dL 1.6-2.4 [facility] ID Date Data Source [id number] 02/13/2020 12:59:[address] [facility] Name Value Range Interpretation Code Description Data Grace rce(s) Supporting Document(s) Bicarbonate [Moles/volume] in Serum 24 mmol/L 22- [facility] Chloride [Moles/volume] in Serum or Plasma 97 mmol/L 98-107 [facility] Creatinine [Mass/volume] in Serum or Plasma 0.46 mg/dL 0.50-0.90 [facility] Glucose [Mass/volume] in Serum or Plasma 94 mg/dL 70-140 [facility] Potassium [Moles/volume] in Serum or Plasma 4.3 mmol/L 3.4-5.1 [facility] Sodium [Moles/volume] in Serum or Plasma 136 mmol/L 136-145 [facility] Urea nitrogen [Mass/volume] in Serum or Plasma 12 mg/dL 8- [facility] Anion gap 3 in Serum or Plasma 15 mmol/L 8-15 [facility] Osmolality of Serum or Plasma by calculation 282 mosm/kg 275-300 [facility] Creatinine/Urea nitrogen [Mass Ratio] in Serum or Plasma 26 [facility] Calcium [Mass/volume] in Serum or Plasma 8.3 mg/dL 8.8-10.2 L [facility] Glomerular filtration rate/1.73 sq M pre dicted among non-blacks [Volume Rate/Area] in Serum or Plasma by Creatinine-based formula (MDRD) >6 0 [facility] Glomerular filtration rate/1.73 sq M pre dicted among blacks [Volume Rate/Area] in Serum or Plasma by Creatinine-based formula (MDRD) >60 [facility] ID Date Data Source [id number] 02/11/2020 03:57:16 PM EDT [facility] XR ABDOMEN AP ABD SUPINE ONLY [id number] RESULTInterpreted by:FANY FontanezROCEDURE INFORMATION: Exam: XR Abdomen, 1 View Exam date and time: 02/11/2020 3:48 PM Age: 64 years old Clinical indication: Other: Assess stool burden TECHNIQUE: Imaging protocol: XR of the abdomen. Views: Frontal supine view of the abdomen. 1 View. COMPARISON: DX XR ABDOMEN AP ABD SUPINE ONLY [id number] PORTABLE 01/21/2020 11:20 AM FINDINGS: Tubes, catheters and devices: The bulb of the gastrostomy tube projects over the distal stomach air shadow in both projections. Gastrointestinal tract: There is increased stool mainly in the descending colon and sigmoid colon and hepatic flexure but less than before. Intraperitoneal space: There are surgical clips in the right upper quadrant of the abdomen. Organs: Soft tissue fullness in the pelvic area is probably a distended bladder but this should be correlated to clinical history and findings to exclude a pelvic mass. Bones/joints: Unremarkable. IMPRESSION: 1. The bulb of the gastrostomy tube projects over the distal stomach air shadow in both projections. 2. There is increased stool mainly in the descending colon and sigmoid colon and hepatic flexure but less than before. 3. Soft tissue fullness in the pelvic area is probably a distended bladder but this should be correlated to clinical history and findings to exclude a pelvic mass. THIS DOCUMENT HAS BEEN ELECTRONICALLY SIGNED BY MEHDI DANGELO MDThis document has been electronically signed by Mehdi Dangelo MD on 02/11/2020 3:57 PM Name Value Range Interpretation Code Description Data Grace rce(s) Supporting Document(s) ID Date Data Source [id number] 02/09/2020 05:48:34 AM T [facility] Name Value Range Interpretation Code Description Data Grace rce(s) Supporting Document(s) Leukocytes [#/volume] in Blood by Automated count 10.2 10*3/uL 4-10 H [facility] Erythrocytes [#/volume] in Blood by Automated count 3.65 10*6/uL 4.1- 5.3 L [facility] Hemoglobin [Mass/volume] in Blood 10.0 g/dL 11.5-15.5 L [facility] Hematocrit [Volume Fraction] of Blood by Automated count 31.3 % 3 6-45 L [facility] Erythrocyte mean corpuscular volume [Entitic volume] by Auto mated count 85.6 fL 80-96 [facility] Erythrocyte mean corpuscular hemoglobin [Entitic mass] by Automated count 27.5 pg 27-33 [facility] Erythrocyte mean corpuscular hemoglobin concentration [Mass/volume] by Automated count 32.1 g/dL 32.0-36.[facility] width [Ratio] by Automated count 16.0 % 11.5-14.5 H [facility] Platelets [#/volume] in Blood by Automated count 395 10*3/uL 150-400 [facility] Differential cell count method - Blood [facility] Neutrophils/100 leukocytes in Blood by Automated count 67 % [facility] Lymphocytes/100 leukocytes in Blood by Automated count 17 % [facility] Monocytes/100 leukocytes in Blood by Automated count 11 % [facility] Eosinophils/100 leukocytes in Blood by Automated count 4 % [facility] Basophils/100 leukocytes in Blood by Automated count 1 % [facility] Neutrophils [#/volume] in Blood by Automated count 6.86 10*3/uL 1.8-7 .0 [facility] Lymphocytes [#/volume] in Blood by Automated count 1.72 10*3/uL 1.2-4 .0 [facility] Monocytes [#/volume] in Blood by Automated count 1.07 10*3/uL 0-0.8 H [facility] Eosinophils [#/volume] in Blood by Automated count 0.42 10*3/uL 0-0.5 [facility] Basophils [#/volume] in Blood by Automated count 0.11 10*3/uL 0-0.2 [facility] Nucleated erythrocytes/100 leukocytes [Ratio] in Blood by Automated count 0 /100{WBCs} 0-0 [facility] ID Date Data Source [id number] 02/09/2020 06:13:20 AM [facility] Value Range Interpretation Code Description Data Grace rce(s) Supporting Document(s) Magnesium [Mass/volume] in Serum or Plasma 2.1 mg/dL 1.6-2.4 [facility] ID Date Data Source [id number] 02/09/2020 09:55:35 AM EDT [facility] Name Value Range Interpretation Code Description Data Grace rce(s) Supporting Document(s) Bicarbonate [Moles/volume] in Serum 26 mmol/L 22-29 [facility] Chloride [Moles/volume] in Serum or Plasma 97 mmol/L 98-107 L [facility] Creatinine [Mass/volume] in Serum or Plasma 0.40 mg/dL 0.50-0.90 L [facility] Glucose [Mass/volume] in Serum or Plasma 111 mg/dL 70-140 [facility] Potassium [Moles/volume] in Serum or Plasma 4.3 mmol/L 3.4-5.1 [facility] Sodium [Moles/volume] in Serum or Plasma 138 mmol/L 136-145 [facility] Urea nitrogen [Mass/volume] in Serum or Plasma 16 mg/dL 8-23 [facility] Anion gap 3 in Serum or Plasma 15 mmol/L 8-15 [facility] Osmolality of Serum or Plasma by calculation 288 mosm/kg 275-300 [facility] Creatinine/Urea nitrogen [Mass Ratio] in Serum or Plasma 40 [facility] Calcium [Mass/volume] in Serum or Plasma 8.4 mg/dL 8.8-10.2 L [facility] Glomerular filtration rate/1.73 sq M pre dicted among non-blacks [Volume Rate/Area] in Serum or Plasma by Creatinine-based formula (MDRD) >6 0 [facility] Glomerular filtration rate/1.73 sq M pre dicted among blacks [Volume Rate/Area] in Serum or Plasma by Creatinine-based formula (MDRD) >60 [facility] ID Date Data Source [id number] 02/06/2020 07:14:[address] [facility] Name Value Range Interpretation Code Description Data Grace rce(s) Supporting Document(s) Leukocytes [#/volume] in Blood by Automated count 11.2 10*3/uL 4-10 H [facility] Erythrocytes [#/volume] in Blood by Automated count 3.56 10*6/uL 4.1- 5.3 L [facility] Hemoglobin [Mass/volume] in Blood 10.0 g/dL 11.5-15.5 [facility] Hematocrit [Volume Fraction] of Blood by Automated count 30.2 % 3 6-45 L [facility] Erythrocyte mean corpuscular volume [Entitic volume] by Auto mated count 84.8 fL 80-96 [facility] Erythrocyte mean corpuscular hemoglobin [Entitic mass] by Automated count 28.2 pg 27-33 [facility] Erythrocyte mean corpuscular hemoglobin concentration [Mass/volume] by Automated count 33.3 g/dL 32.0-36.[facility] [Ratio] by Automated count 15.7 % 11.5-14.5 H [facility] Platelets [#/volume] in Blood by Automated count 385 10*3/uL 150-400 [facility] Differential cell count method - Blood [facility] Neutrophils/100 leukocytes in Blood by Automated count 63 % [facility] Lymphocytes/100 leukocytes in Blood by Automated count 21 % [facility] Monocytes/100 leukocytes in Blood by Automated count 11 % [facility] Eosinophils/100 leukocytes in Blood by Automated count 4 % [facility] Basophils/100 leukocytes in Blood by Automated count 1 % [facility] Neutrophils [#/volume] in Blood by Automated count 7.07 10*3/uL 1.8-7 .0 H [facility] Lymphocytes [#/volume] in Blood by Automated count 2.32 10*3/uL 1.2-4 .0 [facility] Monocytes [#/volume] in Blood by Automated count 1.27 10*3/uL 0-0.8 H [facility] Eosinophils [#/volume] in Blood by Automated count 0.41 10*3/uL 0-0.5 [facility] Basophils [#/volume] in Blood by Automated count 0.13 10*3/uL 0-0.2 [facility] Nucleated erythrocytes/100 leukocytes [Ratio] in Blood by Automated count 0 /100{WBCs} 0-0 [facility] ID Date Data Source [id number] 02/06/2020 07:56:[address] [facility] Name Value Range Interpretation Code Description Data Grace rce(s) Supporting Document(s) Magnesium [Mass/volume] in Serum or Plasma 2.0 mg/dL 1.6-2.4 [facility] ID Date Data Source [id number] 02/06/2020 08:44:[address] [facility] Name Value Range Interpretation Code Description Data Grace rce(s) Supporting Document(s) Bicarbonate [Moles/volume] in Serum 30 mmol/L 22-29 H [facility] Chloride [Moles/volume] in Serum or Plasma 97 mmol/L 98-107 L [facility] Creatinine [Mass/volume] in Serum or Plasma 0.44 mg/dL 0.50-0.90 L [facility] Glucose [Mass/volume] in Serum or Plasma 90 mg/dL 70-140 [facility] Potassium [Moles/volume] in Serum or Plasma 4.2 mmol/L 3.4-5.1 [facility] Sodium [Moles/volume] in Serum or Plasma 138 mmol/L 136-145 [facility] Urea nitrogen [Mass/volume] in Serum or Plasma 17 mg/dL 8-23 [facility] Anion gap 3 in Serum or Plasma 11 mmol/L 8-15 [facility] Osmolality of Serum or Plasma by calculation 287 mosm/kg 275-300 [facility] Creatinine/Urea nitrogen [Mass Ratio] in Serum or Plasma 39 [facility] Calcium [Mass/volume] in Serum or Plasma 8.6 mg/dL 8.8-10.2 L [facility] Glomerular filtration rate/1.73 sq M pre dicted among non-blacks [Volume Rate/Area] in Serum or Plasma by Creatinine-based formula (MDRD) >6 0 [facility] Glomerular filtration rate/1.73 sq M pre dicted among blacks [Volume Rate/Area] in Serum or Plasma by Creatinine-based formula (MDRD) >60 [facility] ID Date Data Source [id number] 02/02/2020 07:06:20 AM EDT [facility] Name Value Range Interpretation Code Description Data Grace rce(s) Supporting Document(s) Leukocytes [#/volume] in Blood by Automated count 9.6 10*3/uL 4-10 [facility] Erythrocytes [#/volume] in Blood by Automated count 3.62 10*6/uL 4.1- 5.3 [facility] Hemoglobin [Mass/volume] in Blood 10.1 g/dL 11.5-15.5 [facility] Hematocrit [Volume Fraction] of Blood by Automated count 30.5 % 3 6-45 L [facility] Erythrocyte mean corpuscular volume [Entitic volume] by Auto mated count 84.2 fL 80-96 [facility] Erythrocyte mean corpuscular hemoglobin [Entitic mass] by Automated count 28.0 pg 27-33 [facility] Erythrocyte mean corpuscular hemoglobin concentration [Mass/volume] by Automated count 33.3 g/dL 32.0-36.[facility] [Ratio] by Automated count 15.7 % 11.5-14.5 H [facility] Platelets [#/volume] in Blood by Automated count 370 10*3/uL 150-400 [facility] Differential cell count method - Blood [facility] Neutrophils/100 leukocytes in Blood by Automated count 61 % [facility] Lymphocytes/100 leukocytes in Blood by Automated count 24 % [facility] Monocytes/100 leukocytes in Blood by Automated count 10 % [facility] Eosinophils/100 leukocytes in Blood by Automated count 4 % [facility] Basophils/100 leukocytes in Blood by Automated count 1 % [facility] Neutrophils [#/volume] in Blood by Automated count 5.83 10*3/uL 1.8-7 .0 [facility] Lymphocytes [#/volume] in Blood by Automated count 2.36 10*3/uL 1.2-4 .0 [facility] Monocytes [#/volume] in Blood by Automated count 0.97 10*3/uL 0-0.8 H [facility] Eosinophils [#/volume] in Blood by Automated count 0.40 10*3/uL 0-0.5 [facility] Basophils [#/volume] in Blood by Automated count 0.08 10*3/uL 0-0.2 [facility] Nucleated erythrocytes/100 leukocytes [Ratio] in Blood by Automated count 0 /100{WBCs} 0-0 [facility] ID Date Data Source [id number] 02/02/2020 07:16:31 AM T [facility] Name Value Range Interpretation Code Description Data Grace rce(s) Supporting Document(s) Bicarbonate [Moles/volume] in Serum 32 mmol/L 22-29 H [facility] Chloride [Moles/volume] in Serum or Plasma 99 mmol/L 98-107 [facility] Creatinine [Mass/volume] in Serum or Plasma 0.34 mg/dL 0.50-0.90 L [facility] Glucose [Mass/volume] in Serum or Plasma 101 mg/dL 70-140 [facility] Potassium [Moles/volume] in Serum or Plasma 4.0 mmol/L 3.4-5.1 [facility] Sodium [Moles/volume] in Serum or Plasma 140 mmol/L 136-145 [facility] Urea nitrogen [Mass/volume] in Serum or Plasma 16 mg/dL 8-23 [facility] Anion gap 3 in Serum or Plasma 9 mmol/L 8-15 [facility] Osmolality of Serum or Plasma by calculation 291 mosm/kg 275-300 [facility] Creatinine/Urea nitrogen [Mass Ratio] in Serum or Plasma 47 [facility] Calcium [Mass/volume] in Serum or Plasma 8.6 mg/dL 8.8-10.2 L [facility] Glomerular filtration rate/1.73 sq M pre dicted among non-blacks [Volume Rate/Area] in Serum or Plasma by Creatinine-based formula (MDRD) >6 0 [facility] Glomerular filtration rate/1.73 sq M pre dicted among blacks [Volume Rate/Area] in Serum or Plasma by Creatinine-based formula (MDRD) >60 [facility] ID Date Data Source [id number] 02/02/2020 07:16:[address] [facility] Name Value Range Interpretation Code Description Data Grace rce(s) Supporting Document(s) Magnesium [Mass/volume] in Serum or Plasma 1.9 mg/dL 1.6-2.4 [facility] ID Date Data Source [id number] 02/01/2020 01:55:56 PM T [facility] XR THORACIC SPINE AP AND LATERALFINAL RE SULTInterpreted by:Kolton Morton MBBSINDICATION: S/P T1-T6 PSIF, T3 Decompression. TECHNIQUE: 3 views of the thoracic spine were obtained.COMPARISON: Radiographs thoracic spine dated 12/14/2019.FINDINGS/IMPRESSION:Evaluation is very limited due to overlapping densities and diffuse bony demineralization. Redemonstration of postoperative changes related to posterior spinal fusion of the upper thoracic spine with pedicle screws and spinal rods. The hardware appears grossly intact. Remainder the osseous structures. This document has been electronically signed by Vishal Guillen MD on 02/01/2020 1:53 PM Name Value Range Interpretation Code Description Data Grace rce(s) Supporting Document(s) ID Date Data Source [id number] 01/30/2020 07:01:[address] [facility] Name Value Range Interpretation Code Description Data Grace rce(s) Supporting Document(s) Leukocytes [#/volume] in Blood by Automated count 9.8 10*3/uL 4-10 [facility] Erythrocytes [#/volume] in Blood by Automated count 3.61 10*6/uL 4.1- 5.3 L [facility] Hemoglobin [Mass/volume] in Blood 10.0 g/dL 11.5-15.5 L [facility] Hematocrit [Volume Fraction] of Blood by Automated count 30.4 % 3 6-45 L [facility] Erythrocyte mean corpuscular volume [Entitic volume] by Auto mated count 84.2 fL 80-96 [facility] Erythrocyte mean corpuscular hemoglobin [Entitic mass] by Automated count 27.6 pg 27-33 [facility] Erythrocyte mean corpuscular hemoglobin concentration [Mass/volume] by Automated count 32.8 g/dL 32.0-36.[facility] [Ratio] by Automated count 15.7 % 11.5-14.5 H [facility] Platelets [#/volume] in Blood by Automated count 376 10*3/uL 150-400 [facility] Differential cell count method - Blood [facility] Neutrophils/100 leukocytes in Blood by Automated count 68 % [facility] Lymphocytes/100 leukocytes in Blood by Automated count 18 % [facility] Monocytes/100 leukocytes in Blood by Automated count 9 % [facility] Eosinophils/100 leukocytes in Blood by Automated count 4 % [facility] Basophils/100 leukocytes in Blood by Automated count 1 % [facility] Neutrophils [#/volume] in Blood by Automated count 6.67 10*3/uL 1.8-7 .0 [facility] Lymphocytes [#/volume] in Blood by Automated count 1.80 10*3/uL 1.2-4 .0 [facility] Monocytes [#/volume] in Blood by Automated count 0.90 10*3/uL 0-0.8 H [facility] Eosinophils [#/volume] in Blood by Automated count 0.35 10*3/uL 0-0.5 [facility] Basophils [#/volume] in Blood by Automated count 0.10 10*3/uL 0-0.2 [facility] Nucleated erythrocytes/100 leukocytes [Ratio] in Blood by Automated count 0 /100{WBCs} 0-0 [facility] ID Date Data Source [id number] 01/30/2020 07:19:32 AM EDT [facility] Name Value Range Interpretation Code Description Data Grace rce(s) Supporting Document(s) Bicarbonate [Moles/volume] in Serum 33 mmol/L 22-29 H [facility] Chloride [Moles/volume] in Serum or Plasma 98 mmol/L 98-107 [facility] Creatinine [Mass/volume] in Serum or Plasma 0.42 mg/dL 0.50-0.90 L [facility] Glucose [Mass/volume] in Serum or Plasma 112 mg/dL 70-140 [facility] Potassium [Moles/volume] in Serum or Plasma 4.0 mmol/L 3.4-5.1 [facility] Sodium [Moles/volume] in Serum or Plasma 139 mmol/L 136-145 [facility] Urea nitrogen [Mass/volume] in Serum or Plasma 20 mg/dL 8-23 [facility] Anion gap 3 in Serum or Plasma 8 mmol/L 8-15 [facility] Osmolality of Serum or Plasma by calculation 291 mosm/kg 275-300 [facility] Creatinine/Urea nitrogen [Mass Ratio] in Serum or Plasma 48 [facility] Calcium [Mass/volume] in Serum or Plasma 8.5 mg/dL 8.8-10.2 L [facility] Glomerular filtration rate/1.73 sq M pre dicted among non-blacks [Volume Rate/Area] in Serum or Plasma by Creatinine-based formula (MDRD) >6 0 [facility] Glomerular filtration rate/1.73 sq M pre dicted among blacks [Volume Rate/Area] in Serum or Plasma by Creatinine-based formula (MDRD) >60 [facility] ID Date Data Source [id number] 01/25/2020 07:02:46 AM EDT [facility] Name Value Range Interpretation Code Description Data Grace rce(s) Supporting Document(s) Leukocytes [#/volume] in Blood by Automated count 9.8 10*3/uL 4-10 [facility] Erythrocytes [#/volume] in Blood by Automated count 3.46 10*6/uL 4.1- 5.3 [facility] Hemoglobin [Mass/volume] in Blood 9.7 g/dL 11.5-15.5 [facility] Hematocrit [Volume Fraction] of Blood by Automated count 29.3 % 3 6-45 L [facility] Erythrocyte mean corpuscular volume [Entitic volume] by Auto mated count 84.6 fL 80-96 [facility] Erythrocyte mean corpuscular hemoglobin [Entitic mass] by Automated count 27.9 pg 27-33 [facility] Erythrocyte mean corpuscular hemoglobin concentration [Mass/volume] by Automated count 33.0 g/dL 32.0-36.[facility] [Ratio] by Automated count 15.5 % 11.5-14.5 H [facility] Platelets [#/volume] in Blood by Automated count 358 10*3/uL 150-400 [facility] Differential cell count method - Blood [facility] Neutrophils/100 leukocytes in Blood by Automated count 62 % [facility] Lymphocytes/100 leukocytes in Blood by Automated count 21 % [facility] Monocytes/100 leukocytes in Blood by Automated count 11 % [facility] Eosinophils/100 leukocytes in Blood by Automated count 5 % [facility] Basophils/100 leukocytes in Blood by Automated count 1 % [facility] Neutrophils [#/volume] in Blood by Automated count 5.99 10*3/uL 1.8-7 .0 [facility] Lymphocytes [#/volume] in Blood by Automated count 2.06 10*3/uL 1.2-4 .0 [facility] Monocytes [#/volume] in Blood by Automated count 1.10 10*3/uL 0-0.8 H [facility] Eosinophils [#/volume] in Blood by Automated count 0.51 10*3/uL 0-0.5 [facility] Basophils [#/volume] in Blood by Automated count 0.11 10*3/uL 0-0.2 [facility] Nucleated erythrocytes/100 leukocytes [Ratio] in Blood by Automated count 0 /100{WBCs} 0-0 [facility] ID Date Data Source [id number] 01/24/2020 12:17:58 PM T [facility] Name Value Range Interpretation Code Description Data Grace rce(s) Supporting Document(s) Bicarbonate [Moles/volume] in Serum 32 mmol/L 22-29 [facility] Chloride [Moles/volume] in Serum or Plasma 94 mmol/L 98-107 L [facility] Creatinine [Mass/volume] in Serum or Plasma 0.39 mg/dL 0.50-0.90 L [facility] Glucose [Mass/volume] in Serum or Plasma 126 mg/dL 70-140 [facility] Potassium [Moles/volume] in Serum or Plasma 4.1 mmol/L 3.4-5.1 [facility] Sodium [Moles/volume] in Serum or Plasma 136 mmol/L 136-145 [facility] Urea nitrogen [Mass/volume] in Serum or Plasma 18 mg/dL 8-23 [facility] Anion gap 3 in Serum or Plasma 10 mmol/L 8-15 [facility] Osmolality of Serum or Plasma by calculation 285 mosm/kg 275-300 [facility] Creatinine/Urea nitrogen [Mass Ratio] in Serum or Plasma 47 [facility] Calcium [Mass/volume] in Serum or Plasma 8.5 mg/dL 8.8-10.2 L [facility] Glomerular filtration rate/1.73 sq M pre dicted among non-blacks [Volume Rate/Area] in Serum or Plasma by Creatinine-based formula (MDRD) >6 0 [facility] Glomerular filtration rate/1.73 sq M pre dicted among blacks [Volume Rate/Area] in Serum or Plasma by Creatinine-based formula (MDRD) >60 [facility] ID Date Data Source [id number] 01/24/2020 12:21:45 PM EDT [facility] Name Value Range Interpretation Code Description Data Grace rce(s) Supporting Document(s) Leukocytes [#/volume] in Blood by Automated count 12.1 10*3/uL 4-10 [facility] Erythrocytes [#/volume] in Blood by Automated count 3.52 10*6/uL 4.1- 5.3 L [facility] Hemoglobin [Mass/volume] in Blood 9.9 g/dL 11.5-15.5 [facility] Hematocrit [Volume Fraction] of Blood by Automated count 29.7 % 3 6-45 L [facility] Erythrocyte mean corpuscular volume [Entitic volume] by Auto mated count 84.4 fL 80-96 [facility] Erythrocyte mean corpuscular hemoglobin [Entitic mass] by Automated count 28.0 pg 27-33 [facility] Erythrocyte mean corpuscular hemoglobin concentration [Mass/volume] by Automated count 33.2 g[facility] width [Ratio] by Automated count 15.7 % 11.5-14.5 [facility] Platelets [#/volume] in Blood by Automated count 390 10*3/uL 150-400 [facility] ID Date Data Source [id number] 01/26/2020 08:53:18 AM EDT [facility] Service Cmnt XXX-Imp : NoneMicroorganism XXX Cult : Greater than 100,000 col/mlEscherichia coli Name Value Range Interpretation Code Description Data Grace rce(s) Supporting Document(s) ID Date Data Source [id number] [facility] Value Range Interpretation Code Description Data Grace rce(s) Supporting Document(s) Color of Urine [facility] Clarity of Urine [facility] Specific gravity of Urine by Refractometry automated 1.017 1.003 -1.030 [facility] pH of Urine by Automated test strip 7.0 5.0-8.0 [facility] Protein [Mass/volume] in Urine by Automated test strip Neg [facility] Glucose [Mass/volume] in Urine by Automated test strip Neg [facility] Ketones [Mass/volume] in Urine by Automated test strip Neg [facility] Bilirubin.total [Presence] in Urine by Automated test strip Negative [facility] Hemoglobin [Presence] in Urine by Automated test strip Neg [facility] Leukocyte esterase [Presence] in Urine by Automated test strip Negative [facility] Nitrite [Presence] in Urine by Automated test strip Negati ve [facility] Leukocytes [#/area] in Urine sediment by Automated count 242 /HPF 0 -5 [facility] Erythrocytes [#/area] in Urine sediment by Automated count 5 /HPF 0-3 [facility] Bacteria [#/area] in Urine sediment by Automated count Non e [facility] Epithelial cells.squamous [#/area] in Urine sediment by Auto mated count 2 /HPF None [facility] Mucus [#/area] in Urine sediment by Microscopy low power field None [facility] Crystals.amorphous [#/area] in Urine sediment by Microscopy high power field None [facility] ID Date Data Source [id number] 01/21/2020 11:57:09 [facility] ABD SUPINE ONLY [id number] RESULTInterpreted by:FANY PatinoROCEDURE INFORMATION: Exam: XR Abdomen, 1 View Exam date and time: 01/21/2020 11:35 AM Age: 64 years old Clinical indication: Other: Evaluate stool burden TECHNIQUE: Imaging protocol: XR of the abdomen. Views: Frontal supine view of the abdomen. 1 View. COMPARISON: CR XR ABDOMEN AP ABD SUPINE ONLY [id number] PORTABLE 01/09/2020 8:06 AM FINDINGS: Tubes, catheters and devices: There is a G-tube in place in the stomach. Gastrointestinal tract: There is a large amount of fecal material present in the colon, predominantly in the descending colon and rectosigmoid. No evidence of abnormal distention of bowel loops.Organs: There has been a prior cholecystectomy. Bones/joints: Thoracic spine hardware is incompletely visualized. IMPRESSION: Large amount of fecal material present in the colon, predominantly in the descending colon and rectosigmoid. No evidence of abnormal distention of bowel loopsTHIS DOCUMENT HAS BEEN ELECTRONICALLY SIGNED BY CE TANNER MDThis document has been electronically signed by Ce Tanner MD on 01/21/2020 11:57 AM Name Value Range Interpretation Code Description Data Grace rce(s) Supporting Document(s) ID Date Data Source [id number] 01/19/2020 10:33:[address] [facility] XR HAND 2 VIEWS [id number] RESULTInterpr eted by:Sarah Dailey DOINDICATION: pain, h/o rheumatoid arthritis.TECHNIQUE: AP and lateral views of bilateral hands were obtained. COMPARISON: None.FINDINGS: Right: Advanced arthritic changes are present within the second MCP joint. There is osteophytosis and subchondral cystic degeneration present within the second metatarsal head. Small joint effusion involves the MCP joint. Small erosive lesions are present within the third DIP joint. No acute fracture or subluxation. Slight deformity of the fifth metacarpal may be secondary to prior fracture/trauma. The alignment is anatomical except for ulnar plus variance. The bones appear slightly demineralized. No suspicious osseous lesion. Left: Scattered degenerative changes are present within the hand. There is osteophytosis along the distal radius. Mild to moderate joint space narrowing is present between the third MCP joint with small subchondral cysts. No acute fracture or dislocation. The alignment is anatomical except for ulnar plus variance. No osseous lesions. No evidence of large joint effusion.IMPRESSION:1. Advanced arthritic changes are present within the right second MCP joint which may be secondary to inflammatory arthropathy.2. Possible erosion involving the DIP joint of the third right digit.This document has been electronically signed by Chirag Slaughter MD on 01/19/2020 10:31 AM Name Value Range Interpretation Code Description Data Grace rce(s) Supporting Document(s) ID Date Data Source [id number] 01/18/2020 10:14:[address] [facility] Name Value Range Interpretation Code Description Data Grace rce(s) Supporting Document(s) [facility] XUEHXp3lGmNZQoIj47/ILHkuDUZho8DtMSziWPi2QSomWMEjV4RgKIF5eB2jFOL5RRwMOkAoCbMrEMQ8 lbm [file] AgICAgICAgICAgICAgICAgICAgICAgICAgICAgICAgICAgICAgICAgICAgICAgICAgICAgICAgICAgIC AgICAgICAgICAgICAgICAgICAgICAgICANCiAgICAgICAgICAgICAgICAgICAgICAgICAgICAgICAgIC AgICAgICAgICAgICAgICAgICAgICAgICAgICAgICAg ICAgICAgICAgICAgICAgICAgICAgICAgICAgICAgICAgICANCiAgICAgICAgICAgICAgICAgICAgICAg ICAgICAgICAgICAgICAgICAgICAgICAgICAgICAgICAgICAgICAgICAgICAgICAgICAgICAgICAgICAg ICAgICAgICAgICAgICAgICANCiAgICAgICAgICAgIC AgICAgICAgICAgICAgICAgICAgICAgICAgICAgICAgICAgICAgICAgICAgICAgICAgICAgICAgICAgIC AgICAgICAgICAgICAgICAgICAgICAgICAgICANCiAgICAgICAgICAgICAgICAgICAgICAgICAgICAgIC AgICAgICAgICAgICAgICAgICAgICAgICAgICAgICAg ICAgICAgICAgICAgICAgICAgICAgICAgICAgICAgICAgICAgICANCiAgICAgICAgICAgICAgICAgICAg ICAgICAgICAgICAgICAgICAgICAgICAgICAgICAgICAgICAgICAgICAgICAgICAgICAgICAgICAgICAg ICAgICAgICAgICAgICAgICAgICANCiAgICAgICAgIC AgICAgICAgICAgICAgICAgICAgICAgICAgICAgICAgICAgICAgICAgICAgICAgICAgICAgICAgICAgIC AgICAgICAgICAgICAgICAgICAgICAgICAgICAgICANCiAgICAgICAgICAgICAgICAgICAgICAgICAgIC AgICAgICAgICAgICAgICAgICAgICAgICAgICAgICAg ICAgICAgICAgICAgICAgICAgICAgICAgICAgICAgICAgICAgICAgICANCiAgICAgICAgICAgICAgICAg ICAgICAgICAgICAgICAgICAgICAgICAgICAgICAgICAgICAgICAgICAgICAgICAgICAgICAgICAgICAg ICAgICAgICAgICAgICAgICAgICAgICANCiAgICAgIC AgICAgICAgICAgICAgICAgICAgICAgICAgICAgICAgICAgICAgICAgICAgICAgICAgICAgICAgICAgIC AgICAgICAgICAgICAgICAgICAgICAgICAgICAgICAgICANCjw/cTHsM4jbzEUkgbN8H4psIh6ZSe4OLU 8nz8LpGWHdNJytmvEeRotVUvPeTJFlZylMVpn5ZXjk HM8AcDOfK9BtE0IkFUmuRI7QEKFuZRIkmDAjOCDsZOZqUfD0CQDtMNmrLI8MtFAoRJylPCGcYZPjGdIl DAScXXMcGCRuJCYyWNEACFRkTUVxCqEkCULhDBLlYC9QZDIeX791ckLoXm2SZc6PDmRgJL8zlh1NZcWq TGToPrnUPsk3IBubDR6HsMFpeMGeFrKkPQNUYnVhQ7 ylx5AiGpEyOJIWORupSC0Xt4PzrPJpBDz+Hp1YSZ4xa4SxLWeeJoBdAX1eoj0PZWuBHcXqH3TclAnfNZ EhouF2rJRxNFW7XPdmkNVCQYCtLP5lIARWJTVfvYG5GtD9ZwWnVrRuOHJ0LCQzCJ2eQPbnRE2FZZH4GX kkYWWzRDMpN7hVMnVsBBLjFzAckRsaJR5ZLtVvI2Up cmVudCAzMiAwIFINCj4+XZhnoeFySmeXTnJ4ONMtw2CvAXe5XW1TUFRmYCycCH3BKSObnN8oKMvySF9H LsBsYXTeBLSQSqHrE82pjXZnBIx8T5ZrZpPxIIHjIzsjEGBjKRqqXjNqEEQvPlAcQYkcBS9+ID4+DQog WJ0JOUwpugLhIYOyJi8ZIWXmTXQzSY7yPSOhHDDiA6 T6lCmcQKMQUwQnU6splqynTO2jAZBtB229vHxxcyHyUYRxSPEaLy9MOQYnKZB9YUOtoGTyNfIaITCYBA aoTX1DlGDvNYG8xG4lCWisICMxSMVuP4qPOdRbaZofEQ79rAxzeqFcgKThSSa+Id2PWU6bq6DgTBl0ap YaINkmRVP1NSsvHLFdNCWjHJRhZKI1YYC3TANPLjEd WLDmYPCoJEgaWLUrJGGkwy9NMVTnQDQoFZacZWZxSXZjTUEmNKjqCKYgTFM1JkD8FHMcCTMtJP9QWmVg YMIsENYuJDaeYKHbOWXqro0JIGTiWWQaKAL7UYQfUQEuBLJdJTsiVBSkLHU0WmG9JZKhEILiIV7FEcXi JPQtASW0CGNiKSZkOTFomv2BBSDyHUGfQyH2XBUhKI CxAHBfATriDSFaECVuHXLvCBBpIYUnQY3BObEgRPTjFFM4GGhlXICyMQQlsm9VENGtQSNdBfw6HqEtED KaCHUnUVcyHHTaHUF7ONehLPWoYOYeKO1WUyVjDLWeDOM3DZfgMUDyCOSxmd2QQJFnWLIrBwl3WxJpCA OjJCYlMDsiWQNkXSE3LyeuNHYuZDCuQZ4VIzQbQNPr YLn0ABOzUYLyIKEiyy8ILMOdIXEtIOK1QzAoSOBeUHMpLLqyLJJdTWE1EzGcHPFuOMToFR5DKnBxTJFu SXo4InRwZFGiRCVprc7TQUZsRECcOTg7PCSwFGXaMGNmRZmyKGVuPNTzAZe5GRGmLHQyMS9CBbIxQALc OwQaXZToBTQaWXWukd1FBHXgXZSmGnZ6TZNgNADdRR FuBXdbZLFtRWXyRId8QPBfZWUiOU3GXtFeXZTmFzWeZBvfJCAbTVCsap5KRUOeMMFxDyRtRtXkIWBsYX WyHOlpEGAgWQXwZIthZSCbTEHcAL1BDcCsGGYeFaU0IwSoBWPpYQIpza4RVAKpQEJoPLpjYDYwHIVsCA CzDLpzXWYiEQB4VPznNPBkULTaQD5LObIbPCMzXmWc PCyrWXVuELLpbm3BJNDwFESxWuf0BTMaNYJaHCRjXQvhWGWsSWR6PYWsOEThNQItYI5AMcEaYZPlUzX8 JWReZRLyUCCqiy6JeNVqaGndjt8EVFsBMs0DbVaePOT0ZXptPk0buBVvVUFgMXATRl4IctKkJOYpVOFM QQdnBOEwDBgnDLC2QhSfUvw9UfT3KwN2CZI3BFRkOn QmQCYnZLO0FlX0IJC9RgidSTWfJkzjBRUwDsPaZDZnZVJoX5AkATXyVlO+YK7oRFt+Vc4Ii7UibtJ3xr MiOQylQhYwTP6BYZMML0SOJk== ID Date Data Source [id number] 01/19/2020 10:25:[facility] Interpretation Code Description Data Grace rce(s) Supporting Document(s) Cyclic citrullinated peptide IgA+IgG Ab [Units/volume] in Serum or Plasma by Immunoassay 187 units 0-20 [facility] PositivePositive and indicates th e presence ofIgG and or IgA CCP3 antibodies andsuggests the possibility of RheumatoidArthritis.(NOTE)These results were obtained with the [employer] CCP3.1 IgG/IgAELISA. Anti-CCP values obtained with different spray gunner's assaymethods may not be interchangeable. The magnitude of the reported IgGor IgA levels cannot be correlated to an endpoint titer. ID Date Data Source [id number] 01/19/2020 12:23:29 [facility] Value Range Interpretation Code Description Data Grace rce(s) Supporting Document(s) Nuclear Ab Pattern Homogenous [Titer] in Serum <80 [facility] Nuclear Ab pattern.speckled [Titer] in Serum <80 [facility] Nuclear Ab pattern.rim [Titer] in Serum <80 [facility] Nuclear Ab pattern.nucleolar [Titer] in Serum <80 [facility] ID Date Data Source [id number] 01/18/2020 03:06:37 PM [facility] Value Range Interpretation Code Description Data Grace rce(s) Supporting Document(s) Creatine kinase [Enzymatic activity/volume] in Serum or Plasma 17 U /L 20-180 L [facility] ID Date Data Source [id number] 01/18/2020 03:06:37 PM [facility] Value Range Interpretation Code Description Data Grace rce(s) Supporting Document(s) C reactive protein [Mass/volume] in Serum or Plasma 30.7 mg/L <8.0 H [facility] ID Date Data Source [id number] 01/18/2020 03:06:37 PM [facility] Value Range Interpretation Code Description Data Grace rce(s) Supporting Document(s) Rheumatoid factor [Units/volume] in Serum or Plasma 49 IU/ml <14 [facility] ID Date Data Source [id number] 01/18/2020 03:06:37 PM [facility] Value Range Interpretation Code Description Data Grace rce(s) Supporting Document(s) Urate [Mass/volume] in Serum or Plasma 3.3 mg/dl 2.4-5.7 [facility] ID Date Data Source [id number] 01/18/2020 02:39:46 PM [facility] Value Range Interpretation Code Description Data Grace rce(s) Supporting Document(s) Erythrocyte sedimentation rate 45 mm/hr <30 [facility] ID Date Data Source [id number] 01/17/2020 08:04:14 AM [facility] Value Range Interpretation Code Description Data Grace rce(s) Supporting Document(s) Glucose [Mass/volume] in Capillary blood by Glucometer 186 mg/dL 70- 140 [facility] ID Date Data Source [id number] 01/12/2020 07:17:52 AM [facility] Value Range Interpretation Code Description Data Grace rce(s) Supporting Document(s) Leukocytes [#/volume] in Blood by Automated count 8.1 10*3/uL 4-10 [facility] Erythrocytes [#/volume] in Blood by Automated count 3.48 10*6/uL 4.1- 5.3 [facility] Hemoglobin [Mass/volume] in Blood 9.7 g/dL 11.5-15.5 [facility] Hematocrit [Volume Fraction] of Blood by Automated count 29.8 % 3 6-45 L [facility] Erythrocyte mean corpuscular volume [Entitic volume] by Auto mated count 85.6 fL 80-96 [facility] Erythrocyte mean corpuscular hemoglobin [Entitic mass] by Automated count 27.7 pg 27-33 [facility] Erythrocyte mean corpuscular hemoglobin concentration [Mass/volume] by Automated count 32.4 g/dL 32.0-36.0 [facility] width [Ratio] by Automated count 15.6 % 11.5-14.5 [facility] Platelets [#/volume] in Blood by Automated count 373 10*3/uL 150-400 [facility] Differential cell count method - Blood [facility] Neutrophils/100 leukocytes in Blood by Automated count 59 % [facility] Lymphocytes/100 leukocytes in Blood by Automated count 22 % [facility] Monocytes/100 leukocytes in Blood by Automated count 12 % [facility] Eosinophils/100 leukocytes in Blood by Automated count 6 % [facility] Basophils/100 leukocytes in Blood by Automated count 1 % [facility] Neutrophils [#/volume] in Blood by Automated count 4.84 10*3/uL 1.8-7 .0 [facility] Lymphocytes [#/volume] in Blood by Automated count 1.77 10*3/uL 1.2-4 .0 [facility] Monocytes [#/volume] in Blood by Automated count 0.98 10*3/uL 0-0.8 [facility] Eosinophils [#/volume] in Blood by Automated count 0.46 10*3/uL 0-0.5 [facility] Basophils [#/volume] in Blood by Automated count 0.10 10*3/uL 0-0.2 [facility] Nucleated erythrocytes/100 leukocytes [Ratio] in Blood by Automated count 0 /100{WBCs} 0-0 [facility] ID Date Data Source [id number] 01/12/2020 07:54:18 AM T [facility] Name Value Range Interpretation Code Description Data Grace rce(s) Supporting Document(s) Bicarbonate [Moles/volume] in Serum 31 mmol/L 22-29 [facility] Chloride [Moles/volume] in Serum or Plasma 97 mmol/L 98-107 L [facility] Creatinine [Mass/volume] in Serum or Plasma 0.37 mg/dL 0.50-0.90 L [facility] Glucose [Mass/volume] in Serum or Plasma 90 mg/dL 70-140 [facility] Potassium [Moles/volume] in Serum or Plasma 4.3 mmol/L 3.4-5.1 [facility] Sodium [Moles/volume] in Serum or Plasma 139 mmol/L 136-145 [facility] Urea nitrogen [Mass/volume] in Serum or Plasma 14 mg/dL 8-23 [facility] Anion gap 3 in Serum or Plasma 11 mmol/L 8-15 [facility] Osmolality of Serum or Plasma by calculation 288 mosm/kg 275-300 [facility] Creatinine/Urea nitrogen [Mass Ratio] in Serum or Plasma 38 [facility] Calcium [Mass/volume] in Serum or Plasma 8.7 mg/dL 8.8-10.2 L [facility] Glomerular filtration rate/1.73 sq M pre dicted among non-blacks [Volume Rate/Area] in Serum or Plasma by Creatinine-based formula (MDRD) >6 0 [facility] Glomerular filtration rate/1.73 sq M pre dicted among blacks [Volume Rate/Area] in Serum or Plasma by Creatinine-based formula (MDRD) >60 [facility] ID Date Data Source [id number] 01/10/2020 12:01:35 AM EDT [facility] XR ABDOMEN AP ABD SUPINE ONLY [id number] RESULTInterpreted by:Jaren Gutierrez MDCLINICAL HISTORY: 64-year-old female: evaluate stool burden.COMPARISON: Abdominal radiograph from 12/18/2019.TECHNIQUE: Supine AP views of the abdomen and pelvis were obtained. FINDINGS: There are air- filled nondilated loops of large bowel with a moderate/large amount of stool within the colon and rectum. There is a G-tube in place.There are degenerative changes seen throughout the visualized spine and bilateral hips. There are surgical clips in the right upper quadrant consistent with prior cholecyst ectomy. There are surgical screws in the upper thoracic spine consistent with prior fusion and decompression. The visualized lung bases are normal.IMPRESSION:1. Normal bowel gas pattern.2. Moderate/large amount stool in the colon and rectum.This document has been electronically signed by Ilene Renner MD on 01/09/2020 11:59 PM Name Value Range Interpretation Code Description Data Grace rce(s) Supporting Document(s) ID Date Data Source [id number] 01/09/2020 05:47:35 AM EDT [facility] Name Value Range Interpretation Code Description Data Grace rce(s) Supporting Document(s) Leukocytes [#/volume] in Blood by Automated count 8.9 10*3/uL 4-10 [facility] Erythrocytes [#/volume] in Blood by Automated count 3.49 10*6/uL 4.1- 5.3 L [facility] Hemoglobin [Mass/volume] in Blood 9.7 g/dL 11.5-15.5 L [facility] Hematocrit [Volume Fraction] of Blood by Automated count 29.9 % 3 6-45 L [facility] Erythrocyte mean corpuscular volume [Entitic volume] by Auto mated count 85.6 fL 80-96 [facility] Erythrocyte mean corpuscular hemoglobin [Entitic mass] by Automated count 27.8 pg 27-33 [facility] Erythrocyte mean corpuscular hemoglobin concentration [Mass/volume] by Automated count 32.5 g/dL 32.0-36.0 [facility] width [Ratio] by Automated count 15.5 % 11.5-14.5 [facility] Platelets [#/volume] in Blood by Automated count 369 10*3/uL 150-400 [facility] Differential cell count method - Blood [facility] Neutrophils/100 leukocytes in Blood by Automated count 61 % [facility] Lymphocytes/100 leukocytes in Blood by Automated count 21 % [facility] Monocytes/100 leukocytes in Blood by Automated count 12 % [facility] Eosinophils/100 leukocytes in Blood by Automated count 5 % [facility] Basophils/100 leukocytes in Blood by Automated count 1 % [facility] Neutrophils [#/volume] in Blood by Automated count 5.46 10*3/uL 1.8-7 .0 [facility] Lymphocytes [#/volume] in Blood by Automated count 1.84 10*3/uL 1.2-4 .0 [facility] Monocytes [#/volume] in Blood by Automated count 1.02 10*3/uL 0-0.8 H [facility] Eosinophils [#/volume] in Blood by Automated count 0.48 10*3/uL 0-0.5 [facility] Basophils [#/volume] in Blood by Automated count 0.10 10*3/uL 0-0.2 [facility] Nucleated erythrocytes/100 leukocytes [Ratio] in Blood by Automated count 0 /100{WBCs} 0-0 [facility] ID Date Data Source [id number] 01/09/2020 08:06:[address] [facility] Name Value Range Interpretation Code Description Data Grace rce(s) Supporting Document(s) Bicarbonate [Moles/volume] in Serum 32 mmol/L 22-29 H [facility] Chloride [Moles/volume] in Serum or Plasma 97 mmol/L 98-107 L [facility] Creatinine [Mass/volume] in Serum or Plasma 0.37 mg/dL 0.50-0.90 L [facility] Glucose [Mass/volume] in Serum or Plasma 94 mg/dL 70-140 [facility] Potassium [Moles/volume] in Serum or Plasma 4.1 mmol/L 3.4-5.1 [facility] Hemolyzed Sodium [Moles/volume] in Serum or Plasma 137 mmol/L 136-145 [facility] Urea nitrogen [Mass/volume] in Serum or Plasma 17 mg/dL 8-23 [facility] Anion gap 3 in Serum or Plasma 8 mmol/L 8-15 [facility] Osmolality of Serum or Plasma by calculation 285 mosm/kg 275-300 [facility] Creatinine/Urea nitrogen [Mass Ratio] in Serum or Plasma 46 [facility] Calcium [Mass/volume] in Serum or Plasma 8.8 mg/dL 8.8-10.2 [facility] Glomerular filtration rate/1.73 sq M pre dicted among non-blacks [Volume Rate/Area] in Serum or Plasma by Creatinine-based formula (MDRD) >6 0 [facility] Glomerular filtration rate/1.73 sq M pre dicted among blacks [Volume Rate/Area] in Serum or Plasma by Creatinine-based formula (MDRD) >60 [facility] ID Date Data Source [id number] 01/05/2020 07:09:[address] [facility] Name Value Range Interpretation Code Description Data Grace rce(s) Supporting Document(s) Leukocytes [#/volume] in Blood by Automated count 8.6 10*3/uL 4-10 [facility] Erythrocytes [#/volume] in Blood by Automated count 3.35 10*6/uL 4.1- 5.3 L [facility] Hemoglobin [Mass/volume] in Blood 9.3 g/dL 11.5-15.5 [facility] Hematocrit [Volume Fraction] of Blood by Automated count 28.9 % 3 6-45 L [facility] Erythrocyte mean corpuscular volume [Entitic volume] by Auto mated count 86.2 fL 80-96 [facility] Erythrocyte mean corpuscular hemoglobin [Entitic mass] by Automated count 27.9 pg 27-33 [facility] Erythrocyte mean corpuscular hemoglobin concentration [Mass/volume] by Automated count 32.3 g/dL 32.0-36.0 [facility] [Ratio] by Automated count 15.8 % 11.5-14.5 [facility] Platelets [#/volume] in Blood by Automated count 384 10*3/uL 150-400 [facility] Differential cell count method - Blood [facility] Neutrophils/100 leukocytes in Blood by Automated count 58 % [facility] Lymphocytes/100 leukocytes in Blood by Automated count 21 % [facility] Monocytes/100 leukocytes in Blood by Automated count 13 % [facility] Eosinophils/100 leukocytes in Blood by Automated count 7 % [facility] Basophils/100 leukocytes in Blood by Automated count 1 % [facility] Neutrophils [#/volume] in Blood by Automated count 5.05 10*3/uL 1.8-7 .0 [facility] Lymphocytes [#/volume] in Blood by Automated count 1.77 10*3/uL 1.2-4 .0 [facility] Monocytes [#/volume] in Blood by Automated count 1.15 10*3/uL 0-0.8 H [facility] Eosinophils [#/volume] in Blood by Automated count 0.57 10*3/uL 0-0.5 H [facility] Basophils [#/volume] in Blood by Automated count 0.09 10*3/uL 0-0.2 [facility] Nucleated erythrocytes/100 leukocytes [Ratio] in Blood by Automated count 0 /100{WBCs} 0-0 [facility] ID Date Data Source [id number] 01/05/2020 07:32:23 AM EDT [facility] Name Value Range Interpretation Code Description Data Grace rce(s) Supporting Document(s) Bicarbonate [Moles/volume] in Serum 34 mmol/L 22-29 H [facility] Chloride [Moles/volume] in Serum or Plasma 96 mmol/L 98-107 L [facility] Creatinine [Mass/volume] in Serum or Plasma 0.37 mg/dL 0.50-0.90 L [facility] Glucose [Mass/volume] in Serum or Plasma 95 mg/dL 70-140 [facility] Potassium [Moles/volume] in Serum or Plasma 4.0 mmol/L 3.4-5.1 [facility] [facility] S[facility] [Moles/volume] in Serum or Plasma 140 mmol/L 136-145 [facility] Urea nitrogen [Mass/volume] in Serum or Plasma 16 mg/dL 8-23 [facility] Anion gap 3 in Serum or Plasma 10 mmol/L 8-15 [facility] Osmolality of Serum or Plasma by calculation 291 mosm/kg 275-300 [facility] Creatinine/Urea nitrogen [Mass Ratio] in Serum or Plasma 43 [facility] Calcium [Mass/volume] in Serum or Plasma 9.1 mg/dL 8.8-10.2 [facility] Glomerular filtration rate/1.73 sq M pre dicted among non-blacks [Volume Rate/Area] in Serum or Plasma by Creatinine-based formula (MDRD) >6 0 [facility] Glomerular filtration rate/1.73 sq M pre dicted among blacks [Volume Rate/Area] in Serum or Plasma by Creatinine-based formula (MDRD) >60 [facility] ID Date Data Source [id number] 01/03/2020 03:55:57 PM EDT [facility] XR SHOULDER COMPLETE [id number] RESULTIn terpreted by:Sarah Dailey, DOINDICATION: pain, limited ROM.TECHNIQUE: 4 views of the left shoulder.COMPARISON: Chest x-ray dated 12/18/2019.FINDINGS: No acute fracture or subluxation. The alignment is anatomical. There is presence of mild degenerative changes including small osteophytosis of the humeral head, glenoid fossa and acromion. The bones appears slightly demineralized. No soft tissue calcification.Chronic appearing fractures of the left-sided ribs. PICC line is seen within the left upper extremity. The visualized aspects of the lungs are clear.IMPRESSION:Osteoarthritic changes involving the left shoulder.This document has been electronically signed by Chirag Slaughter MD on 01/03/2020 3:53 PM Name Value Range Interpretation Code Description Data Grace rce(s) Supporting Document(s) ID Date Data Source [id number] 01/02/2020 04:48:59 PM EDT [facility] Name Value Range Interpretation Code Description Data Grace rce(s) Supporting Document(s) Consultation [facility] [id number] lbm [file] [id number]/safety net maker/Nr6mh+QS I61I/RPippdfiFhmSI4vqtnRjaz7E+BlVcUh6RaBTEVyV1nqQXfeDT5OoTlDY4gdrqBtTyYOdzZr1EIY kVTiQu+lNFUrYSoc21PydmQf67tQXdWRsLVKp61or4AMYbe+yfLjC65KXE31oyWoVDAzh8nlAdYGfALd Td37Yo3G/LMjEdyTkynAgOE+9mUcZP0Fbcuoj9HNoS w1zp363KxrSj3lYr0zj6sdMaEijAp1jVSX8qWlYpcs0+bxWiMi2Z3P0k9HZ7iZooQ3nhYeaGnJmDbkRw CM9YSCg8w5SIrVHIcW56jQfxxGCZx9IHxTyCuOMm2dWWZpOYr/RyHW4xp3Ca7mpIq8XTZuquALhzdqqS WHIQLjlUs4zrsKqBBFP99aURu+lNaqhL4ybrWGGvhu +SG0ZWRqrzlIKQwMzsY22/OH/YX+IyRC/mIClLcys9lVf09cONoIHeUIkTcadU0ZESP1QPKd2vsMRVHr XgPWaJSKy0TTKpUZEuTWGBOiPPaxH135HA8wVQYKnpzJO8kspOlWgbPjH14hjXDwbgNN4xjStrX4HQeV X9oZUGSQb4gpXOrfmdhQUyZ+SR3gwn9qNfjuBmSpXt ewuhcAnFc96oZHFkIMsv0yd7Pyy8ExyOz3sCNMlfZebAVe/uzpRQzuTi5r+/FZXkGpCpbZbK7jcfKRqI NzKp4jakGzFGIydIqi4mE/cDxtIqu4SDeyO6aCHIoUTNewJL/8tMtY55CirSHt/RZlJ7FcBEwSBv0AqT A1dgoosuNE3Q5PXmtfg1uFPadSWNHTNMbYDd0Zswlk fVMgpf8Gh6Bj+yapbFv3Sm6otPOzYQHVNxb9VWfTNnImi/3GyqHeqYnNEEWeKt40SlknGtKqAzn7WC2o umad3TLpLzXy4lRHQSG3lHiGYvoe7aZWcxzRXK+n6cKjDNRgVcQHaVtZEpoNRZ1GrHLvKNSzNZRlkUSK NUBMoeQngXUHI4x1FbBszEjWdVwcseVLAKPVFXMsmr [file] [id number] ID Date Data Source [id number] 01/02/2020 07:03:47 AM EDT [facility] Name Value Range Interpretation Code Description Data Grcae e(s) Supporting Document(s) Leukocytes [#/volume] in Blood by Automated count 8.2 10*3/uL 4-10 [facility] Erythrocytes [#/volume] in Blood by Automated count 3.29 10*6/uL 4.1- 5.3 L [facility] Hemoglobin [Mass/volume] in Blood 9.3 g/dL 11.5-15.5 L [facility] Hematocrit [Volume Fraction] of Blood by Automated count 28.6 % 3 6-45 L [facility] Erythrocyte mean corpuscular volume [Entitic volume] by Auto mated count 87.1 fL 80-96 [facility] Erythrocyte mean corpuscular hemoglobin [Entitic mass] by Automated count 28.4 pg 27-33 [facility] Erythrocyte mean corpuscular hemoglobin concentration [Mass/volume] by [facility] 32.6 g[facility] [Ratio] by Automated count 15.7 % 11.5-14.5 H [facility] Platelets [#/volume] in Blood by Automated count 373 10*3/uL 150-400 [facility] Differential cell count method - Blood [facility] Neutrophils/100 leukocytes in Blood by Automated count 59 % [facility] Lymphocytes/100 leukocytes in Blood by Automated count 21 % [facility] Monocytes/100 leukocytes in Blood by Automated count 13 % [facility] Eosinophils/100 leukocytes in Blood by Automated count 6 % [facility] Basophils/100 leukocytes in Blood by Automated count 1 % [facility] Neutrophils [#/volume] in Blood by Automated count 4.84 10*3/uL 1.8-7 .0 [facility] Lymphocytes [#/volume] in Blood by Automated count 1.74 10*3/uL 1.2-4 .0 [facility] Monocytes [#/volume] in Blood by Automated count 1.04 10*3/uL 0-0.8 H [facility] Eosinophils [#/volume] in Blood by Automated count 0.50 10*3/uL 0-0.5 [facility] Basophils [#/volume] in Blood by Automated count 0.09 10*3/uL 0-0.2 [facility] Nucleated erythrocytes/100 leukocytes [Ratio] in Blood by Automated count 0 /100{WBCs} 0-0 [facility] ID Date Data Source [id number] 01/02/2020 07:19:[address] [facility] Name Value Range Interpretation Code Description Data Grace rce(s) Supporting Document(s) Bicarbonate [Moles/volume] in Serum 34 mmol/L 22-29 H [facility] Chloride [Moles/volume] in Serum or Plasma 95 mmol/L 98-107 [facility] Creatinine [Mass/volume] in Serum or Plasma 0.44 mg/dL 0.50-0.90 [facility] Glucose [Mass/volume] in Serum or Plasma 96 mg/dL 70-140 [facility] Potassium [Moles/volume] in Serum or Plasma 4.1 mmol/L 3.4-5.1 [facility] Sodium [Moles/volume] in Serum or Plasma 139 mmol/L 136-145 [facility] Urea nitrogen [Mass/volume] in Serum or Plasma 20 mg/dL 8-23 [facility] Anion gap 3 in Serum or Plasma 10 mmol/L 8-15 [facility] Osmolality of Serum or Plasma by calculation 290 mosm/kg 275-300 [facility] Creatinine/Urea nitrogen [Mass Ratio] in Serum or Plasma 44 [facility] Calcium [Mass/volume] in Serum or Plasma 8.7 mg/dL 8.8-10.2 [facility] Glomerular filtration rate/1.73 sq M pre dicted among non-blacks [Volume Rate/Area] in Serum or Plasma by Creatinine-based formula (MDRD) >6 0 [facility] Glomerular filtration rate/1.73 sq M pre dicted among blacks [Volume Rate/Area] in Serum or Plasma by Creatinine-based formula (MDRD) >60 [facility] ID Date Data Source [id number] 12/29/2019 05:05:[address] [facility] Name Value Range Interpretation Code Description Data Grace rce(s) Supporting Document(s) Leukocytes [#/volume] in Blood by Automated count 7.6 10*3/uL 4-10 [facility] Erythrocytes [#/volume] in Blood by Automated count 3.25 10*6/uL 4.1- 5.3 L [facility] Hemoglobin [Mass/volume] in Blood 9.3 g/dL 11.5-15.5 L [facility] Hematocrit [Volume Fraction] of Blood by Automated count 28.1 % 3 6-45 L [facility] Erythrocyte mean corpuscular volume [Entitic volume] by Auto mated count 86.4 fL 80-96 [facility] Erythrocyte mean corpuscular hemoglobin [Entitic mass] by Automated count 28.7 pg 27-33 [facility] Erythrocyte mean corpuscular hemoglobin concentration [Mass/volume] by Automated count 33.2 g/dL 32.0-36.[facility] [Ratio] by Automated count 16.1 % 11.5-14.5 H [facility] Platelets [#/volume] in Blood by Automated count 363 10*3/uL 150-400 [facility] Differential cell count method - Blood [facility] Neutrophils/100 leukocytes in Blood by Automated count 57 % [facility] Lymphocytes/100 leukocytes in Blood by Automated count 22 % [facility] Monocytes/100 leukocytes in Blood by Automated count 13 % [facility] Eosinophils/100 leukocytes in Blood by Automated count 7 % [facility] Basophils/100 leukocytes in Blood by Automated count 1 % [facility] Neutrophils [#/volume] in Blood by Automated count 4.39 10*3/uL 1.8-7 .0 [facility] Lymphocytes [#/volume] in Blood by Automated count 1.64 10*3/uL 1.2-4 .0 [facility] Monocytes [#/volume] in Blood by Automated count 0.96 10*3/uL 0-0.8 H [facility] Eosinophils [#/volume] in Blood by Automated count 0.53 10*3/uL 0-0.5 H [facility] Basophils [#/volume] in Blood by Automated count 0.07 10*3/uL 0-0.2 [facility] Nucleated erythrocytes/100 leukocytes [Ratio] in Blood by Automated count 0 /100{WBCs} 0-0 [facility] ID Date Data Source [id number] 12/29/2019 05:31:49 AM EDT [facility] Name Value Range Interpretation Code Description Data Grace rce(s) Supporting Document(s) Bicarbonate [Moles/volume] in Serum 33 mmol/L 22-29 H [facility] Chloride [Moles/volume] in Serum or Plasma 94 mmol/L 98-107 L [facility] Creatinine [Mass/volume] in Serum or Plasma 0.39 mg/dL 0.50-0.90 [facility] Glucose [Mass/volume] in Serum or Plasma 100 mg/dL 70-140 [facility] Potassium [Moles/volume] in Serum or Plasma 3.9 mmol/L 3.4-5.1 [facility] Sodium [Moles/volume] in Serum or Plasma 136 mmol/L 136-145 [facility] Urea nitrogen [Mass/volume] in Serum or Plasma 20 mg/dL 8-23 [facility] Anion gap 3 in Serum or Plasma 9 mmol/L 8-15 [facility] Osmolality of Serum or Plasma by calculation 285 mosm/kg 275-300 [facility] Creatinine/Urea nitrogen [Mass Ratio] in Serum or Plasma 51 [facility] Calcium [Mass/volume] in Serum or Plasma 8.6 mg/dL 8.8-10.2 L [facility] Glomerular filtration rate/1.73 sq M pre dicted among non-blacks [Volume Rate/Area] in Serum or Plasma by Creatinine-based formula (MDRD) >6 0 [facility] Glomerular filtration rate/1.73 sq M pre dicted among blacks [Volume Rate/Area] in Serum or Plasma by Creatinine-based formula (MDRD) >60 [facility] ID Date Data Source [id number] 12/26/2019 01:34:11 PM EDT [facility] Name Value Range Interpretation Code Description Data Grace rce(s) Supporting Document(s) [facility] [id number] [facility] [file] [id number]== ID Date Data Source [id number] 12/26/2019 07:49:51 AM EDT [facility] Name Value Range Interpretation Code Description Data [facility](s) Supporting Document(s) Leukocytes [#/volume] in Blood by Automated count 8.5 10*3/uL 4-10 [facility] Erythrocytes [#/volume] in Blood by Automated count 3.20 10*6/uL 4.1- 5.3 L [facility] Hemoglobin [Mass/volume] in Blood 9.1 g/dL 11.5-15.5 L [facility] Hematocrit [Volume Fraction] of Blood by Automated count 28.2 % 3 6-45 L [facility] Erythrocyte mean corpuscular volume [Entitic volume] by Auto mated count 88.2 fL 80-96 [facility] Erythrocyte mean corpuscular hemoglobin [Entitic mass] by Automated count 28.3 pg 27-33 [facility] Erythrocyte mean corpuscular hemoglobin concentration [Mass/volume] by Automated count 32.1 g/dL 32.0-36.0 [facility] Erythrocyte distribution width [Ratio] by Automated count 16.7 % 11.5-14.5 H [facility] Platelets [#/volume] in Blood by Automated count 340 10*3/uL 150-400 [facility] Differential cell count method - Blood [facility] Neutrophils/100 leukocytes in Blood by Automated count 58 % [facility] Lymphocytes/100 leukocytes in Blood by Automated count 22 % [facility] Monocytes/100 leukocytes in Blood by Automated count 13 % [facility] Eosinophils/100 leukocytes in Blood by Automated count 6 % [facility] Basophils/100 leukocytes in Blood by Automated count 1 % [facility] Neutrophils [#/volume] in Blood by Automated count 4.98 10*3/uL 1.8-7 .0 [facility] Lymphocytes [#/volume] in Blood by Automated count 1.88 10*3/uL 1.2-4 .0 [facility] Monocytes [#/volume] in Blood by Automated count 1.08 10*3/uL 0-0.8 H [facility] Eosinophils [#/volume] in Blood by Automated count 0.52 10*3/uL 0-0.5 H [facility] Basophils [#/volume] in Blood by Automated count 0.10 10*3/uL 0-0.2 [facility] Nucleated erythrocytes/100 leukocytes [Ratio] in Blood by Automated count 0 /100{WBCs} 0-0 [facility] ID Date Data Source [id number] 12/26/2019 10:25:19 AM EDT [facility] Name Value Range Interpretation Code Description Data Grace rce(s) Supporting Document(s) Albumin [Mass/volume] in Serum or Plasma by Bromocresol green (BCG) dye binding method 3.0 g/dL 3.5-5.2 L [facility] Bilirubin.total [Mass/volume] in Serum or Plasma <1.2 [facility] Calcium [Mass/volume] in Serum or Plasma 9.0 mg/dL 8.8-10.2 [facility] Chloride [Moles/volume] in Serum or Plasma 96 mmol/L 98-107 L [facility] Creatinine [Mass/volume] in Serum or Plasma 0.40 mg/dL 0.50-0.90 L [facility] Glucose [Mass/volume] in Serum or Plasma 90 mg/dL 70-140 [facility] Alkaline phosphatase [Enzymatic activity/volume] in Serum or Plasma 107 U/L 35-104 H [facility] Potassium [Moles/volume] in Serum or Plasma 4.0 mmol/L 3.4-5.1 [facility] Protein [Mass/volume] in Serum or Plasma 5.8 g/dL 6.4-8.3 [facility] Sodium [Moles/volume] in Serum or Plasma 137 mmol/L 136-145 [facility] Aspartate aminotransferase [Enzymatic activity/volume] in Serum or Plasma 16 U/L <32 [facility] Urea nitrogen [Mass/volume] in Serum or Plasma 18 mg/dL 8-23 [facility] Osmolality of Serum or Plasma by calculation 285 mosm/kg 275-300 [facility] Creatinine/Urea nitrogen [Mass Ratio] in Serum or Plasma 45 [facility] Bicarbonate [Moles/volume] in Serum 34 mmol/L 22-29 H [facility] Alanine aminotransferase [Enzymatic activity/volume] in Seru m or Plasma 21 U/L <33 [facility] Anion gap 3 in Serum or Plasma 7 mmol/L 8-15 L [facility] Glomerular filtration rate/1.73 sq M pre dicted among non-blacks [Volume Rate/Area] in Serum or Plasma by Creatinine-based formula (MDRD) >6 0 [facility] Glomerular filtration rate/1.73 sq M pre dicted among blacks [Volume Rate/Area] in Serum or Plasma by Creatinine-based formula (MDRD) >60 [facility] ID Date Data Source [id number] 12/22/2019 06:48:54 AM EDT [facility] Name Value Range Interpretation Code Description Data Grace rce(s) Supporting Document(s) Leukocytes [#/volume] in Blood by Automated count 9.6 10*3/uL 4-10 [facility] Erythrocytes [#/volume] in Blood by Automated count 3.10 10*6/uL 4.1- 5.3 [facility] Hemoglobin [Mass/volume] in Blood 8.8 g/dL 11.5-15.5 [facility] Hematocrit [Volume Fraction] of Blood by Automated count 27.1 % 3 6-45 L [facility] Erythrocyte mean corpuscular volume [Entitic volume] by Auto mated count 87.4 fL 80-96 [facility] Erythrocyte mean corpuscular hemoglobin [Entitic mass] by Automated count 28.3 pg 27-33 [facility] Erythrocyte mean corpuscular hemoglobin concentration [Mass/volume] by Automated count 32.4 g/dL 32.0-36.[facility] width [Ratio] by Automated count 16.3 % 11.5-14.5 H [facility] Platelets [#/volume] in Blood by Automated count 345 10*3/uL 150-400 [facility] Differential cell count method - Blood [facility] Neutrophils/100 leukocytes in Blood by Automated count 64 % [facility] Lymphocytes/100 leukocytes in Blood by Automated count 19 % [facility] Monocytes/100 leukocytes in Blood by Automated count 10 % [facility] Eosinophils/100 leukocytes in Blood by Automated count 6 % [facility] Basophils/100 leukocytes in Blood by Automated count 1 % [facility] Neutrophils [#/volume] in Blood by Automated count 6.17 10*3/uL 1.8-7 .0 [facility] Lymphocytes [#/volume] in Blood by Automated count 1.82 10*3/uL 1.2-4 .0 [facility] Monocytes [#/volume] in Blood by Automated count 0.95 10*3/uL 0-0.8 H [facility] Eosinophils [#/volume] in Blood by Automated count 0.54 10*3/uL 0-0.5 H [facility] Basophils [#/volume] in Blood by Automated count 0.08 10*3/uL 0-0.2 [facility] Nucleated erythrocytes/100 leukocytes [Ratio] in Blood by Automated count 0 /100{WBCs} 0-0 [facility] ID Date Data Source [id number] 12/22/2019 07:13:24 AM EDT [facility] Name Value Range Interpretation Code Description Data Grace rce(s) Supporting Document(s) Bicarbonate [Moles/volume] in Serum 35 mmol/L 22-29 H [facility] Chloride [Moles/volume] in Serum or Plasma 99 mmol/L 98-107 [facility] Creatinine [Mass/volume] in Serum or Plasma 0.36 mg/dL 0.50-0.90 L [facility] Glucose [Mass/volume] in Serum or Plasma 96 mg/dL 70-140 [facility] Potassium [Moles/volume] in Serum or Plasma 4.0 mmol/L 3.4-5.1 [facility] Sodium [Moles/volume] in Serum or Plasma 142 mmol/L 136-145 [facility] Urea nitrogen [Mass/volume] in Serum or Plasma 22 mg/dL 8-23 [facility] Anion gap 3 in Serum or Plasma 8 mmol/L 8-15 [facility] Osmolality of Serum or Plasma by calculation 297 mosm/kg 275-300 [facility] Creatinine/Urea nitrogen [Mass Ratio] in Serum or Plasma 61 [facility] Calcium [Mass/volume] in Serum or Plasma 9.0 mg/dL 8.8-10.2 [facility] Glomerular filtration rate/1.73 sq M pre dicted among non-blacks [Volume Rate/Area] in Serum or Plasma by Creatinine-based formula (MDRD) >6 0 [facility] Glomerular filtration rate/1.73 sq M pre dicted among blacks [Volume Rate/Area] in Serum or Plasma by Creatinine-based formula (MDRD) >60 [facility] ID Date Data Source [id number] 12/19/2019 07:14:15 AM EDT [facility] Name Value Range Interpretation Code Description Data Grace rce(s) Supporting Document(s) Leukocytes [#/volume] in Blood by Automated count 8.7 10*3/uL 4-10 [facility] Erythrocytes [#/volume] in Blood by Automated count 3.23 10*6/uL 4.1- 5.3 L [facility] Hemoglobin [Mass/volume] in Blood 9.1 g/dL 11.5-15.5 L [facility] Hematocrit [Volume Fraction] of Blood by Automated count 28.5 % 3 6-45 L [facility] Erythrocyte mean corpuscular volume [Entitic volume] by Auto mated count 88.2 fL 80-96 [facility] Erythrocyte mean corpuscular hemoglobin [Entitic mass] by Automated count 28.2 pg 27-33 [facility] Erythrocyte mean corpuscular hemoglobin concentration [Mass/volume] by Automated count 32.0 g/dL 32.0-36.[facility] width [Ratio] by Automated count 15.7 % 11.5-14.5 H [facility] Platelets [#/volume] in Blood by Automated count 354 10*3/uL 150-400 [facility] Differential cell count method - Blood [facility] Neutrophils/100 leukocytes in Blood by Automated count 59 % [facility] Lymphocytes/100 leukocytes in Blood by Automated count 21 % [facility] Monocytes/100 leukocytes in Blood by Automated count 12 % [facility] Eosinophils/100 leukocytes in Blood by Automated count 7 % [facility] Basophils/100 leukocytes in Blood by Automated count 1 % [facility] Neutrophils [#/volume] in Blood by Automated count 5.15 10*3/uL 1.8-7 .0 [facility] Lymphocytes [#/volume] in Blood by Automated count 1.83 10*3/uL 1.2-4 .0 [facility] Monocytes [#/volume] in Blood by Automated count 1.01 10*3/uL 0-0.8 H [facility] Eosinophils [#/volume] in Blood by Automated count 0.58 10*3/uL 0-0.5 H [facility] Basophils [#/volume] in Blood by Automated count 0.12 10*3/uL 0-0.2 [facility] Nucleated erythrocytes/100 leukocytes [Ratio] in Blood by Automated count 0 /100{WBCs} 0-0 [facility] ID Date Data Source [id number] 12/19/2019 08:09:15 AM T [facility] Name Value Range Interpretation Code Description Data Grace rce(s) Supporting Document(s) Albumin [Mass/volume] in Serum or Plasma by Bromocresol green (BCG) dye binding method 3.2 g/dL 3.5-5.[facility] Bil[facility].total [Mass/volume] in Serum or Plasma <1.2 [facility] Calcium [Mass/volume] in Serum or Plasma 8.0 mg/dL 8.8-10.2 L [facility] Chloride [Moles/volume] in Serum or Plasma 98 mmol/L 98-107 [facility] Creatinine [Mass/volume] in Serum or Plasma 0.33 mg/dL 0.50-0.90 L [facility] Glucose [Mass/volume] in Serum or Plasma 100 mg/dL 70-140 [facility] Alkaline phosphatase [Enzymatic activity/volume] in Serum or Plasma 143 U/L 35-104 H [facility] Confirmed Potassium [Moles/volume] in Serum or Plasma 4.0 mmol/L 3.4-5.1 [facility] Protein [Mass/volume] in Serum or Plasma 5.8 g/dL 6.4-8.3 L [facility] Sodium [Moles/volume] in Serum or Plasma 140 mmol/L 136-145 [facility] Aspartate aminotransferase [Enzymatic activity/volume] in Serum or Plasma 12 U/L <32 [facility] Urea nitrogen [Mass/volume] in Serum or Plasma 23 mg/dL 8-23 [facility] Osmolality of Serum or Plasma by calculation 294 mosm/kg 275-300 [facility] Creatinine/Urea nitrogen [Mass Ratio] in Serum or Plasma 70 [facility] Bicarbonate [Moles/volume] in Serum 34 mmol/L 22-29 H [facility] Alanine aminotransferase [Enzymatic activity/volume] in Seru m or Plasma 29 U/L <33 [facility] Anion gap 3 in Serum or Plasma 8 mmol/L 8-15 [facility] Glomerular filtration rate/1.73 sq M pre dicted among non-blacks [Volume Rate/Area] in Serum or Plasma by Creatinine-based formula (MDRD) >6 0 [facility] Glomerular filtration rate/1.73 sq M pre dicted among blacks [Volume Rate/Area] in Serum or Plasma by Creatinine-based formula (MDRD) >60 [facility] ID Date Data Source [id number] 12/18/2019 04:47:34 PM EDT [facility] XR ABDOMEN AP ABD SUPINE ONLY [id number] RESULTInterpreted by:Mehdi Dangelo, MDPROCEDURE INFORMATION: Exam: XR Abdomen, 1 View Exam date and time: 12/18/2019 3:20 PM Age: 64 years old Clinical indication: Other: Nausea, evaluate stool burden TECHNIQUE: Imaging protocol: XR of the abdomen. Views: Frontal supine view of the abdomen. 1 View. COMPARISON: DX XR ABDOMEN AP ABD SUPINE ONLY [id number] PORTABLE 11/30/2019 6:31 PM FINDINGS: Gastrointestinal tract: There is moderate distention of the gas-filled colon without obstruction or pneumatosis. Stool is not significantly increased. Intraperitoneal space: There are surgical clips in the right upper quadrant of the abdomen. Bones/joints: Unremarkable. IMPRESSION: 1. There is moderate distention of the gas-filled colon without obstruction or pneumatosis. 2. Stool is not significantly increased. THIS DOCUMENT HAS BEEN ELECTRONICALLY SIGNED BY MEHDI DANGELO MDThis document has been electronically signed by Mehdi Dangelo MD on 12/18/2019 4:47 PM Name Value Range Interpretation Code Description Data Grace rce(s) Supporting Document(s) ID Date Data Source [id number] 12/18/2019 04:41:34 PM EDT [facility] XR CHEST FRONTAL ONLY [id number] RESULTI nterpreted by:Mehdi Dangelo [facility]: Exam: XR Chest, 1 View Exam date and time: 12/18/2019 3:20 PM Age: 64 years old Clinical indication: Other: Increasing oxygen requirement TECHNIQUE: Imaging protocol: XR of the chest Views: 1 view. COMPARISON: CR XR CHEST FRONTAL ONLY [id number] PORTABLE 11/21/2019 12:09 PM FINDINGS: Tubes, catheters and devices: A left-sided catheter line has its tip in the superior vena cava. There is a tracheostomy tube in place. Lungs: Right upper lobe airspace abnormality unchanged. Pleural space: Unremarkable. No pleural effusion. No pneumothorax. Heart/Mediastinum: The heart is enlarged. Vasculature: The aorta is tortuous and ectatic. There is an increase in the vascular pattern consistent with stable mild to moderate congestive failure. Diaphragm: There is elevation of the right diaphragm as before. Bones/joints: Upper dorsal spine fixation device noted There are multiple old left rib fractures IMPRESSION: 1. A left-sided catheter line has its tip in the superior vena cava. 2. There is an increase in the vascular pattern consistent with stable mild to moderate congestive failure. 3. Right upper lobe airspace abn ormality unchanged. THIS DOCUMENT HAS BEEN ELECTRONICALLY SIGNED BY MEHDI DANGELO MDThis document has been electronically signed by Mehdi Dangelo MD on 12/18/2019 4:41 PM Name Value Range Interpretation Code Description Data Grace rce(s) Supporting Document(s) ID Date Data Source [id number] 12/15/2019 02:30:26 PM EDT [facility] Name Value Range Interpretation Code Description Data Grace rce(s) Supporting Document(s) [facility] QWILCm1pKyRCOfAf25/PLGnaQBFzu9JzYCgbQBq3AQzdBSNqF4TzURA5oR1yRFR3GKmHUxEuYxFrRcW1 lbm [file] ID Date Data Source [id number] 12/15/2019 06:12:57 AM EDT [facility] Name Value Range Interpretation Code Description Data Grace rce(s) Supporting Document(s) Leukocytes [#/volume] in Blood by Automated count 7.1 10*3/uL 4-10 [facility] Erythrocytes [#/volume] in Blood by Automated count 3.18 10*6/uL 4.1- 5.3 L [facility] Hemoglobin [Mass/volume] in Blood 9.0 g/dL 11.5-15.5 L [facility] Hematocrit [Volume Fraction] of Blood by Automated count 28.1 % 3 6-45 L [facility] Erythrocyte mean corpuscular volume [Entitic volume] by Auto mated count 88.2 fL 80-96 [facility] Erythrocyte mean corpuscular hemoglobin [Entitic mass] by Automated count 28.3 pg 27-33 [facility] Erythrocyte mean corpuscular hemoglobin concentration [Mass/volume] [facility] 32.0 [facility] width [Ratio] by Automated count 16.1 % 11.5-14.5 H [facility] Platelets [#/volume] in Blood by Automated count 351 10*3/uL 150-400 [facility] Differential cell count method - Blood [facility] Neutrophils/100 leukocytes in Blood by Automated count 53 % [facility] Lymphocytes/100 leukocytes in Blood by Automated count 25 % [facility] Monocytes/100 leukocytes in Blood by Automated count 14 % [facility] Eosinophils/100 leukocytes in Blood by Automated count 7 % [facility] Basophils/100 leukocytes in Blood by Automated count 1 % [facility] Neutrophils [#/volume] in Blood by Automated count 3.73 10*3/uL 1.8-7 .0 [facility] Lymphocytes [#/volume] in Blood by Automated count 1.76 10*3/uL 1.2-4 .0 [facility] Monocytes [#/volume] in Blood by Automated count 0.98 10*3/uL 0-0.8 H [facility] Eosinophils [#/volume] in Blood by Automated count 0.51 10*3/uL 0-0.5 H [facility] Basophils [#/volume] in Blood by Automated count 0.10 10*3/uL 0-0.2 [facility] Nucleated erythrocytes/100 leukocytes [Ratio] in Blood by Automated count 0 /100{WBCs} 0-0 [facility] ID Date Data Source [id number] 12/15/2019 06:17:20 AM EDT [facility] Name Value Range Interpretation Code Description Data Grace rce(s) Supporting Document(s) Albumin [Mass/volume] in Serum or Plasma by Bromocresol green (BCG) dye binding method 3.2 g/dL 3.5-5.2 [facility] Bil[facility].total [Mass/volume] in Serum or Plasma 0.2 mg/dL <1.2 [facility] Calcium [Mass/volume] in Serum or Plasma 8.7 mg/dL 8.8-10.2 L [facility] Chloride [Moles/volume] in Serum or Plasma 99 mmol/L 98-107 [facility] Creatinine [Mass/volume] in Serum or Plasma 0.30 mg/dL 0.50-0.90 L [facility] Glucose [Mass/volume] in Serum or Plasma 87 mg/dL 70-140 [facility] Alkaline phosphatase [Enzymatic activity/volume] in Serum or Plasma 280 U/L 35-104 [facility] Potassium [Moles/volume] in Serum or Plasma 4.1 mmol/L 3.4-5.1 [facility] Protein [Mass/volume] in Serum or Plasma 5.8 g/dL 6.4-8.3 L [facility] Sodium [Moles/volume] in Serum or Plasma 139 mmol/L 136-145 [facility] Aspartate aminotransferase [Enzymatic activity/volume] in Serum or Plasma 51 U/L <32 [facility] Urea nitrogen [Mass/volume] in Serum or Plasma 22 mg/dL 8-23 [facility] Osmolality of Serum or Plasma by calculation 291 mosm/kg 275-300 [facility] Creatinine/Urea nitrogen [Mass Ratio] in Serum or Plasma 73 [facility] Bicarbonate [Moles/volume] in Serum 34 mmol/L 22-29 [facility] Alanine aminotransferase [Enzymatic activity/volume] in Seru m or Plasma 116 U/L <33 [facility] Anion gap 3 in Serum or Plasma 6 mmol/L 8-15 L [facility] Glomerular filtration rate/1.73 sq M pre dicted among non-blacks [Volume Rate/Area] in Serum or Plasma by Creatinine-based formula (MDRD) >6 0 [facility] Glomerular filtration rate/1.73 sq M pre dicted among blacks [Volume Rate/Area] in Serum or Plasma by Creatinine-based formula (MDRD) >60 [facility] ID Date Data Source [id number] 12/14/2019 11:35:14 PM EDT [facility] XR THORACIC SPINE AP AND LATERALFINAL RE SULTInterpreted by:Chema Colorado [facility]: Exam: XR Thoracic Spine, 2 Views Exam date and time: 12/14/2019 10:57 PM Age: 64 years old Clinical indication: Other: 6 weeks post op, upright sitting films TECHNIQUE: Imaging protocol: XR of the thoracic spine, 2 views. COMPARISON: CR XR THORACIC SPINE AP AND LATERAL 11/29/2019 10:52 AM FINDINGS: Tubes, catheters and devices: A tracheostomy tube overlies the tracheal air column. Vertebrae: Osteopenia. There are degenerative changes involving the spine. Stable moderate elevation right hemidiaphragm. Bilateral posterior thoracic spine fusion hardware present, that has not significantly changed. Gross acute fracture, dislocation not identified. Back brace components project over the images, partially obscuring osseous details. Vasculature: The aorta demonstrates mild atherosclerotic calcification. Soft tissues: There are right abdominal surgical clips. No abnormal paraspinal soft tissue density. The skin jazmyn have been removed. IMPRESSION: Thoracic spine posterior fusion hardware, not significantly changed. No acute disease identified. THIS DOCUMENT HAS BEEN ELECTRONICALLY SIGNED BY CHEMA COLORADO MDThis document has been electronically signed by Chema Colorado MD on 12/14/2019 11:35 PM Name Value Range Interpretation Code Description Data Grace rce(s) Supporting Document(s) ID Date Data Source [id number] 12/14/2019 12:53:39 PM EDT [facility] Name Value Range Interpretation Code Description Data Grace rce(s) Supporting Document(s) History and Physical [facility] GAYQXa8wXbEHWwZh37/OXVbdFGIbn0NjSAsqIJk6QVovHIUlT4XxJTY7jQ3rSAU3HQsAHpWoDcRuCwZ3 lbm GjCkuERlJdHMKbWxqJQcOmMTytNdkafFEiCI2HrNJ4LPYrR48xTQMuJJOfG0JgBXOlEzz+As6YSWFsnC WdGS0WXenS3J8bSbdOOdO/n3T/h0xnKFlanac/yX6DljdRBYtJ7UVybN3Zj0wMrNO7FUz/k4YvR7Kd+H iilmwxyurb5UhPqJZF68gnicdc/vcfbyNLfN/37v4v [file] 0mrSrAz9UXsX+aLi/Татьяна/siW9/qw5oTBHDOmjuWCMr1 [file] KvfqH4GzCAGDhoRE+7lLOWR0hF1uq8FFJA7PNQTNcG NpV1crNKPSeQmKlgRq1jF2BzWuZahAg7+Uwe3dGOnOoTbD9Tbv744mOcMI1jp3GOw2D5dwE2jDlvIC/I SGFeY0cItIYwfXaL1lHBF3iU0Fc2J0py122HnGms8hWoraPGcoS9n43E9akOP44Wnx3rCvsrbHXxkx3a rRat3Nqwnh/fiKxUmBYG3fQnPaf4ED1b3IBH2NHl5Y XLns3jWECao68tH9xr+nANW18idyoHxD4+BsDvpRwOeAdjKr2gey6w6xe0rr+51/60SKPt8A/1pPyo5x U/q9H6tpTolXDQ3Xn4f0yipkMznrjHL0Js99dB/safety net maker+STp+1jwp6yD+55+w6SRYZXDyyKG7CA+TdHtym6 [file] m+IL2V+KhiDcsP40cp80Ng9Y6wD2PZ0rFMSrTW+Elías [file] AgICAgICAgICAgICAgICAgICAgICAgICAgICAgICAgICAgICAgICAgICAgICAgICAgICAgICAgICAgIC RsTUGqZEZoLMStWNRuXV5AMPQhJCMvPWBoDUPnJOUgIYHcJOYtOPFtGGGsICWqNFWvWOLqLGAmGXKtPY AgICAgICAgICAgICAgICAgICAgICAgICAgICAgICAg GKTrUAIkWLRxUMDqNWZdTNQyBLAoYFIfPI1JTQNeAEGtSVHiBKEbNABzROKwAQEbIDHtJOReESSvNQIk ICAgICAgICAgICAgICAgICAgICAgICAgICAgICAgICAgICAgICAgICAgICAgICAgICAgICAgICAgICAg BVJzPWWiWJ3OONQkBIWwAICsKSZpFDQlAHGcQUIhFE AgICAgICAgICAgICAgICAgICAgICAgICAgICAgICAgICAgICAgICAgICAgICAgICAgICAgICAgICAgIC CtPJJcVMGzFNWbSCJuYXInMY7BGKNfZZCjEGUlIAXxQPBnAPOjZRCjZZUqSIRhHYQfVSBmSWVnXBNqFS AgICAgICAgICAgICAgICAgICAgICAgICAgICAgICAg ZIZxTTKnGDHiHKJiLRKoCBTyJWCwLOMuHNRzXO5RPOHyXUJgNVUeJWFrYOUqDNCpCPGrSVEfFKWgOKLf ICAgICAgICAgICAgICAgICAgICAgICAgICAgICAgICAgICAgICAgICAgICAgICAgICAgICAgICAgICAg BCXzTSOuLMJgXA2URSFqDVGzLFBaUFLfDSLzOWSmYZ AgICAgICAgICAgICAgICAgICAgICAgICAgICAgICAgICAgICAgICAgICAgICAgICAgICAgICAgICAgIC BaOOHnCJYqQKFaWLBuSHRhKNQxKP5PKRMzRFWvCGMuHJYuXKHiLQTcDFRkHNAsGPQuZEVmKJXlKBPmGK AgICAgICAgICAgICAgICAgICAgICAgICAgICAgICAg BQWaDICqLQWoYBLnSLAkACOcHJDvAZYdACRfXVUzXY5FATNvNWIxTCTaTXLuFVQvDRItKCLnTKLjBNPx ICAgICAgICAgICAgICAgICAgICAgICAgICAgICAgICAgICAgICAgICAgICAgICAgICAgICAgICAgICAg UYGhEIVbIAGyUAJrLB3BCOQgKDHyUOCsFLWsOCWjJG AgICAgICAgICAgICAgICAgICAgICAgICAgICAgICAgICAgICAgICAgICAgICAgICAgICAgICAgICAgIC TzIGYnJJDjVSRtMEIyGMZmJXZpSAHnVG5YPV11uOGrs1V8BXOuBG2avdl/Ms9MQDhrtpMfsPIhFK3WPw FpRJ5wcr2VBaSzOD6fkx1SINfHPtFvY1W6qLZxPYOn LUMXOtZnR63bRUmxMz61NFtjDLSvArHyCAs3Tn0WXrYnH4zrZRFfNuE7FKJwPeE7BROxAiB5AJIsXnJp YGJmYLHdIVBfDAKCBBS6DPXmFtKhDpRmYMGzHTuiKAVFXHReLLNhYlIdUlNqAGIgDzZwCWKYMKD6NAJh UiAyOSAwIFIgMzEgMCBSIDMzIDAgUiAzNSAwIFIgMz ikOZMNZRG9HYZbOdD1ATQlYVKwDB9ANIZxA488fkBpJQpNNi5+MBhhreHxVkxPEqDwUFYqb9DuVRg6HZ 6SLOZlTyqrj8TmRyPoCFNEJCdnHZ2MEEO6YFDsRPUeOs9DFSBrZ885mgVmTE1OJi5VLmXkGN0qik5DHt SzNZMzEpqKKmz6EIexRA5AmYTtGNxVFeCwMzpnPKM6 nTOzHTLHKD25SGNlKR4PMJK9CExnWAHqKpTcKIDfXup9MbGIZViYCwYlP8Qaa6SlQmF9SSZwTwXiTYhp GHAcJeX5SF75rBglZR8YRQUyGRGyAF16QVXlWABxMr2NQm3YEbErZX2nsw3RSeCbQLBtFacPJrc1CAeu FT1WqTKtD0HpuHJpu0yBVtGwR0CJZGB1WLIcQi5JBG PfFbApHYLtONzsLW8fCBOxUVAEyYyrpwO2PA8DJS0bqrHmWG3ZZmVxQa5pOj8WHdXuE7ImZ3TnSJJjDC VQHJdwNB3NNDhlQY2mPV3Nc1JHkXYpfM7dwk7LPTSdITKwVrrtme3SNntrN4W3xCfzQVQnXlNeDNCRDC yoTP2ERHYrEMB4HMH4KBBpYKQDQrMcU35dGD8RL3Hx w37bQmS9HFBkYaOgLCtzOP15qTureyYmjAIetYlsRU9VKz5+DQplbmRvYmoNCnhyZWYNCjAgNjMNCjAw UGUeTXQrYBJkPrX1LzYaDz3IDIDbTHEoHUHbXtEsFZAqTAUsIZzcHVHoZIvtWalqRYKrOYVpHI6KJsCi OHTyJKFwWKrhEALvLZJigq2KOTVvHYWeQYC9SaKeYE VaOSRfTDywOLCfAZL4FdG3VARhFQRmXM4LJfDcSEZsSZT8LTZzOOXoXVCpgx4BGWWhMTOvTkd7GANoEF NeOUHbZVoxMEYuMPM1OXA7RWHySRPeON7NDxHlIHLzWVN4KDAzJRIqTDUeqm9MKWFhFLReERc7XGOzRM EqXXIsBDvnMSUaJHR6VPJ7RUOoNAGjBT7TNxGkOPBy MXXnNhDqJWDtTJBymr3VAEMyXBWoTGR2LUSsXZIlUNBbQZhaXBAuWYY6BShtTNBwHCZwTK7DEtSmOFOj QbE0EmLrLFJbTLDhpl6RXYOzWFIwNfM9UoBiVQPlLNVnHVlqKEIeICO6ECF3IGDyYZCfCA6AGiRlAUFz ZoAxFYSaLGQhGUZxbs4ZGBFxLKBeTIY0PYGxDKEaMP LwKAedLNCjSAN5HHr9TUNmGMZiMG4TFvSsTHUaLaW7TIVuRGGxHGXmff2BKILcSQIfReqlFKRlWETmVV AsDRdxFCNxFBV0UMrjMVGtGIAlUR0EYbTiZNTaJcjtKWqwNIFpERPnpy2ADRRyQNY2GbF5BKWpCTPmDB UfSXxaKHNjAKCeGnO2QNDeMAEnRU4ADxAqLVTdWSU8 XgEmAJWpUYIgiy5EJISrYLL5GjH5MlEhNYQeUEQbTSpeXYQsIXVpQZR4WZLqHVRgBQ1DOiLqVQXfNHXv GrDqDJBmNDNgsq0HXXHmUXN0KIG4NBZrWLYqAJSdGHioDPGjRVH2Zuu2DTLrZNYxMA6CEpNhWEAeMRv4 DVVgEMWbAQLvrl7BFIYjVSH3RsK0OdRpZUWbYFTjSM kqSJJrMHAmWdTyXHZfMFVhFK4RFjYpAUIeQkI6ZCUjWEYbPKLsyr1IFVQsWBV7JtYdUmQnOQLoIRGzPH imEAWuNSO6ZrA8VUGgUMEeIV9XKsTnQKMmXsA0SNGpTWQzDVSdjh1QSGSqFRM2HMj6CKIgPLDuLXGdZM mhRSBuHNsvYsd0DUJiASMaJE7ZIcSbLUGgIwG7MECl ZDQnHZAwwj7VEVSgMSL4KuA5GhSoVIZmCHCaDCgwAXNhRVupDxFlKHYjHBOrGL0DBeNgABYjDeF4QLIz OEMgFVBwgu8LGIIjOEB8MKevLfJmOSKbOZEaJOndKSEbBOk5RBC6RIRgZYTbXW3GQeTrZCKbDzAaFPOo GDBdDPMsyz3NVLXwNGP7BkA4XsGnRWQePLSsGHntSQ VkDYt0RHl9VSLvWRClSM6VCqKpOKHrFIyrANCyVNEdCXZczm1KTTZjTPY3NsF3EnMwNNNvXQXmROeuBG LqCDi0RRa3BQEnJBSpPM2FPeSnQRJeUTZ4SQYeSZXmKMLxeh1PFTBiOBZ8Goa2MeZvISZpWYNbXSoaVH AwPZjxRNv1PIDdRIAhDJ4KFpJqZZQuLKNlCYMpKJZp XSAxpn9CPTUhIKO3UpQ8AZXcNOWgITZuACygGUMaEMeyHpx5TWYoBWCfMM9OIfDjGKVvXGRmCHBcPKAb KZBoga1BKJQhQEH5VKVwCdXdIKLwMIHxTInkKXSsXEz4CXHuFDIeVHYmFZ1HNvQsMDebRPQDSss8CQat X0m9LMJ8Bg5IE7Dpa4IgSfAgPYPZBIwkMT2cytSdYO WuBj9SD8cWWbh8KjTmRaKiKIXnTyFdLrYpAFojQBYqBnWpOrG2JFZnNR0eWEBsVpK4YQOjZyHyHEU1BF DfL9L4ZgVqSgNkAcP1XwH4DyDnBI9YEn3JIlF5XTK6qJOjQc5ZPDD5SFXYGePpQG2ABNc= ID Date Data Source [id number] 12/14/2019 08:59:09 AM T [facility] Name Value Range Interpretation Code Description Data Grace rce(s) Supporting Document(s) Glucose [Mass/volume] in Capillary blood by Glucometer 96 mg/dL 70- 140 [facility] ID Date Data Source [id number] 12/14/2019 07:01:35 AM EDT [facility] Name Value Range Interpretation Code Description Data Grace rce(s) Supporting Document(s) Leukocytes [#/volume] in Blood by Automated count 8.0 10*3/uL 4-10 [facility] Erythrocytes [#/volume] in Blood by Automated count 3.15 10*6/uL 4.1- 5.3 L [facility] Hemoglobin [Mass/volume] in Blood 8.9 g/dL 11.5-15.5 L [facility] Hematocrit [Volume Fraction] of Blood by Automated count 28.0 % 3 6-45 L [facility] Erythrocyte mean corpuscular volume [Entitic volume] by Auto mated count 89.0 fL 80-96 [facility] Erythrocyte mean corpuscular hemoglobin [Entitic mass] by Automated count 28.2 pg 27-33 [facility] Erythrocyte mean corpuscular hemoglobin concentration [Mass/volume] by Automated count 31.7 g/dL 32.0-36.0 [facility] width [Ratio] by Automated count 16.3 % 11.5-14.5 H [facility] Platelets [#/volume] in Blood by Automated count 352 10*3/uL 150-400 [facility] Differential cell count method - Blood [facility] Neutrophils/100 leukocytes in Blood by Automated count 53 % [facility] Lymphocytes/100 leukocytes in Blood by Automated count 27 % [facility] Monocytes/100 leukocytes in Blood by Automated count 14 % [facility] Eosinophils/100 leukocytes in Blood by Automated count 5 % [facility] Basophils/100 leukocytes in Blood by Automated count 1 % [facility] Neutrophils [#/volume] in Blood by Automated count 4.15 10*3/uL 1.8-7 .0 [facility] Lymphocytes [#/volume] in Blood by Automated count 2.19 10*3/uL 1.2-4 .0 [facility] Monocytes [#/volume] in Blood by Automated count 1.12 10*3/uL 0-0.8 H [facility] Eosinophils [#/volume] in Blood by Automated count 0.41 10*3/uL 0-0.5 [facility] Basophils [#/volume] in Blood by Automated count 0.11 10*3/uL 0-0.2 [facility] Nucleated erythrocytes/100 leukocytes [Ratio] in Blood by Automated count 0 /100{WBCs} 0-0 [facility] ID Date Data Source [id number] 12/14/2019 07:52:15 AM EDT [facility] Name Value Range Interpretation Code Description Data Grace rce(s) Supporting Document(s) Albumin [Mass/volume] in Serum or Plasma by Bromocresol green (BCG) dye binding method 3.1 g/dL 3.5-5.2 [facility] Bil[facility].total [Mass/volume] in Serum or Plasma <1.2 [facility] Calcium [Mass/volume] in Serum or Plasma 8.4 mg/dL 8.8-10.2 L [facility] Chloride [Moles/volume] in Serum or Plasma 99 mmol/L 98-107 [facility] Creatinine [Mass/volume] in Serum or Plasma 0.39 mg/dL 0.50-0.90 [facility] Confirmed Glucose [Mass/volume] in Serum or Plasma 130 mg/dL 70-140 [facility] Alkaline phosphatase [Enzymatic activity/volume] in Serum or Plasma 239 U/L 35-104 H [facility] Potassium [Moles/volume] in Serum or Plasma 4.1 mmol/L 3.4-5.1 [facility] Protein [Mass/volume] in Serum or Plasma 5.6 g/dL 6.4-8.3 L [facility] Sodium [Moles/volume] in Serum or Plasma 136 mmol/L 136-145 [facility] Aspartate aminotransferase [Enzymatic activity/volume] in Serum or Plasma 43 U/L <32 [facility] Urea nitrogen [Mass/volume] in Serum or Plasma 30 mg/dL 8-23 H [facility] Confirmed Osmolality of Serum or Plasma by calculation 290 mosm/kg 275-300 [facility] Confirmed Creatinine/Urea nitrogen [Mass Ratio] in Serum or Plasma 77 [facility] Confirmed Bicarbonate [Moles/volume] in Serum 31 mmol/L 22-29 [facility] Alanine aminotransferase [Enzymatic activity/volume] in Seru m or Plasma 128 U/L <33 [facility] Anion gap 3 in Serum or Plasma 6 mmol/L 8-15 L [facility] Glomerular filtration rate/1.73 sq M pre dicted among non-blacks [Volume Rate/Area] in Serum or Plasma by Creatinine-based formula (MDRD) >6 0 [facility] Glomerular filtration rate/1.73 sq M pre dicted among blacks [Volume Rate/Area] in Serum or Plasma by Creatinine-based formula (MDRD) >60 [facility] ID Date Data Source [id number] 12/14/2019 09:14:[address] [facility] Name Value Range Interpretation Code Description Data Garce rce(s) Supporting Document(s) Magnesium [Mass/volume] in Serum or Plasma 1.9 mg/dL 1.6-2.4 [facility] ID Date Data Source [id number] 12/14/2019 09:14:[address] [facility] Name Value Range Interpretation Code Description Data Grace rce(s) Supporting Document(s) Phosphate [Mass/volume] in Serum or Plasma 4.7 mg/dL 2.5-4.5 H [facility] ID Date Data Source [id number] 12/14/2019 04:08:[address] [facility] Name Value Range Interpretation Code Description Data Grace rce(s) Supporting Document(s) Glucose [Mass/volume] in Capillary blood by Glucometer 90 mg/dL 70- 140 [facility] ID Date Data Source [id number] 12/16/2019 08:07:[address] [facility] Service Cmnt XXX-Imp : NoneMicroorganism XXX Cult : Greater than 100,000 col/mlEscherichia coli Name Value Range Interpretation Code Description Data Grace rce(s) Supporting Document(s) ID Date Data Source [id number] 12/14/2019 02:31:[address] [facility] Name Value Range Interpretation Code Description Data Grace rce(s) Supporting Document(s) Color of Urine [facility] Clarity of Urine [facility] Specific gravity of Urine by Refractometry automated 1.017 1.003 -1.030 [facility] pH of Urine by Automated test strip 5.0 5.0-8.0 [facility] Protein [Mass/volume] in Urine by Automated test strip Neg [facility] Glucose [Mass/volume] in Urine by Automated test strip Neg [facility] Ketones [Mass/volume] in Urine by Automated test strip Neg [facility] Bilirubin.total [Presence] in Urine by Automated test strip Negative [facility] Hemoglobin [Presence] in Urine [facility] test [facility] [Presence] in Urine by Automated test strip Negative [facility] Nitrite [Presence] in Urine by Automated test strip Negati ve [facility] Leukocytes [#/area] in Urine sediment by Automated count 399 /HPF 0 -5 H [facility] Erythrocytes [#/area] in Urine sediment by Automated count 11 /HPF 0-3 H [facility] Bacteria [#/area] in Urine sediment by Automated count Non e [facility] Epithelial cells.squamous [#/area] in Urine sediment by Automate d count None [facility] Mucus [#/area] in Urine sediment by Microscopy low power field None [facility] Hyaline casts [#/area] in Urine sediment by Microscopy low p ower field 2 /LPF None [facility] ID Date Data Source [id number] 12/14/2019 12:39:09 AM [facility] Value Range Interpretation Code Description Data Grace rce(s) Supporting Document(s) Glucose [Mass/volume] in Capillary blood by Glucometer 114 mg/dL 70- 140 [facility] ID Date Data Source [id number] 12/13/2019 08:08:03 PM [facility] Value Range Interpretation Code Description Data Grace rce(s) Supporting Document(s) Glucose [Mass/volume] in Capillary blood by Glucometer 97 mg/dL 70- 140 [facility] ID Date Data Source [id number] 12/13/2019 04:14:29 PM [facility] Value Range Interpretation Code Description Data Grace rce(s) Supporting Document(s) Glucose [Mass/volume] in Capillary blood by Glucometer 81 mg/dL 70- 140 [facility] ID Date Data Source [id number] 12/13/2019 03:08:26 PM [facility] Value Range Interpretation Code Description Data Grace rce(s) Supporting Document(s) Discharge Summary [facility] UVNFKd2iTtSGYgTq51/BEUoiWVWkg3QcKBuxGHs0LPmwFFNrA8GnKHD6mY8nTSK2YPuISeWcKxPsJgP0 lbm [file] jay [file] E0CsDPHWElJ280p0tj6GGOEin/6n7kvKE5ty/rYU50bMN1l/yiatf6/Senior Business Analyst/KAKhDnc73/vdHc40P/F16L [file] n8e5+bOg4W9Pefo0IB3jssa9CPTEuFXR3dbzXu+Willian JnANauxbDv5eil2sfa1nAp+bPu/R0aZm/Vomb6XH/WPabu39v4cOdghNHR3IqzFjg1nIuBKnKoyK/SNH IZSUcOWS6Pqkxsv+J7JzwQ3JOFN8a1d0fSXs5JEl4lsRKEUzD1eWNAIctvJgkytgjt1cSTWGlqgNB6it JtbjVA+BgnLeKt+fY6Q/Hw+Ids5969AOsgrWzqu9M3 nw3bq/nYhlqH+XGcRHma6KRu6Kntg+4/EjFQQ9bVheBM29Lo6Xa/jv3FFd15x010SFV1MxZ4O0RhN7wB 9M2bY9mPQFnjjqIjy+W+fyLwPG64v4Dk+yw/E3ry02wh9121hgmKCj7nf0mIUf9/F6QJSuuzh/xL9+6c Vqfbv53a/aM0Y1bGkclsl9LnruFKGDsQ5jbF9dtx9+ p5WTvknI1XlbZxuWMkiRKZayOQpuVakJ5jD/+fKP6RBoRiq2H9GbKgrt7L5WKUac4qHFhRx3iXzykG4c 8VLny/Kt72EXQL1r63NYujZBt/G3S4QR1zJm+pocmEtQ5UTSdLj4BEm8snTTGk3082qjXUj/gk7od1fl gibson+U6+/9N2/J+2y3/hzD3R3bW9p/Znxfa6oDrGrwMD +SeLbRwdQkU8KKViNhN0K/sd3M/ETQijc4rnHYQzxhp+Yl2a8/xCArnKXM3kjX9gpmXnTEq6KGF2Zpaj 1RU350tu8n8KT3uw0O7v8/b6HO/MnHjrF78FaG6qRcQmpo1HD+aXbHr6iwxcA1H7m37+a0iuW5ghOH6h 2J4dyYHE+br1W+Ht0EII0r+U14CDFPyoUjb1BLe9hQ 3ri5JM7pS3bXpZ9+GR5tHXm4fpnnJ4cmF54O56uozlZCz9zLom4iK+pqj3UNpxvcdFtj3V9HHyoz3Cgi cJgSa8rWiY6aTmt6LUmeqpF22qj7A5R2h9Xu+K2nfLzbdwqBno15v/hu/RIZsYRqeYe6tTuH91ej6j55 dT+0uzoMc/IJ+6+2K7mlrVdfRdA7dFEZqkfOJrKbBB R4X1a8JhiAVWmnLFWT2fCZMaAO33cHlHito5Ps2v9kJu3N6HoCVLuPjD04vsMw+FfvIT+AFNh/8NUANr itAyQm9kjHVeru44lkuhR5vgV8xzwYyec0Bf6Cnqv9yMXE5ea9kswiBbjDqEkBH+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 [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] AgICAgICAgICAgICAgICAgICAgICAgICAgICAgICAg JQXmDHThKAMfLQRsORAfZRVjNOHdSPEyZMKyXTUuEWPdQKLiDLRkIMZqLSGvGUTnQHFyMQEcXCRtNV8U ICAgICAgICAgICAgICAgICAgICAgICAgICAgICAgICAgICAgICAgICAgICAgICAgICAgICAgICAgICAg ICAgICAgICAgICAgICAgICAgICAgICAgICAgICAgIC ErLCFsKRVwFY9MARXqFLDaQGVtMPDaYMXrUXGuXORjIQNzFXKmJPVsNCKrMGYlSEViTEAjFHZxPPHdWQ RwIIKgLPFzSSCsCEPjPBMgPGUsHRFlENJhHQBdAKPuRKTvTZQkGSMaTBHkBHEjWNMkEO0LZHPiTZUbDR AgICAgICAgICAgICAgICAgICAgICAgICAgICAgICAg ICAgICAgICAgICAgICAgICAgICAgICAgICAgICAgICAgICAgICAgICAgICAgICAgICAgICAgICAgICAg YM1FWUXiOBHxHBIvJMMzTCJvJUNaEYGbOJDuYUFcVUYuENYuXRKlVJYaXNYcDBEmFUNqDNIlULUvJWLy ICAgICAgICAgICAgICAgICAgICAgICAgICAgICAgIC FaYVPpWPUhQRMzSJ0WJHOsYKAuXMNxSBOjMRKgMMDrJBGfNBWeBBKuIFDdJNBdEYVuFIZoUPEhXDNaSE KlLDXcSGXpVGQaWAKnEJLmGYVqPKBqQVVaQXHgGZXgQLMcOWYsVBPzZVGqIJPtFNMzWMFtIJ2AXGBqWK AgICAgICAgICAgICAgICAgICAgICAgICAgICAgICAg ICAgICAgICAgICAgICAgICAgICAgICAgICAgICAgICAgICAgICAgICAgICAgICAgICAgICAgICAgICAg WNErTO1WFHZyDNTjJPYjLRMaXNBeNEQoOTIhZWEhJAVuFTXbRNWgFBQrSSZzOJYzWPZwRIRuVUTiACVl ICAgICAgICAgICAgICAgICAgICAgICAgICAgICAgIC GhTOHkEZMfCJBvHNTfUD4ZMUBzOGKwGSGnSYYpQNReBZHqSOIxVKSuGSHoDUXxIPNlNGQuGPQlBOZnMG JnIYSfDHEzQFRvYVAzUNKpRHNxURUoMZHjOVToGWZeDMBhKXPaPPOeZRBpYNGqORRbOYYeCVUdOR3SYC AgICAgICAgICAgICAgICAgICAgICAgICAgICAgICAg ICAgICAgICAgICAgICAgICAgICAgICAgICAgICAgICAgICAgICAgICAgICAgICAgICAgICAgICAgICAg SBMiXIEiPZ2TDJ26zVZdn6P3YHDrEW8obko/Cw4TPRyltcVgnFGxAD9TUlRqCJ4vxt4MWuXiIB5ukz9H ADkHGqPlU1J6vLWhXZDhAHVBPqMkU55jNSyxCr17MA zyPSSgTiAcAIy7Bh8CXnJbH0enBAQiNzG1DZRqJyP8SXCvQfQ0ZXLyJaGvYAHbNJYiAVLjFJTVVRY3BO FmBsYkOcDsBTUxPVhdJMCWVNUySRAgSkLfRjQhUXGhTqCoELWXQET4CSWkMvScDBHhWDNnXnXxAZUXEC XnSYCuVsVaMHgtDU8Wi6ZvzGBiXE3QRb5MOiIeKO3r kd8OUQZfNUOrJwzEHex9DGpvMY7KdXDepMP9CnVlZBGLEuRgV5bma9OkAZHfJTCAVKusLK6Qi4BwnXIz DQo+Gd7HUL3rn4XnKRe7NbOzDL2llt0MUYiSWvHbH1EgzQrgHLFcf6JlYYBpRSWHeH6yYXT8IRG7GQbv mNmoAH9tTGSBKHU2FWRHGgHclYH1PgQ0FyBnLaErEH B8MTPhPI3bHQcnMB8RCYH0MOosWBXrJUJxQ3gPAlJrVDMlGlBkwKicOU8JKjXlD9YmfrYtgJO0TpLmNW INCj4+JKomjyMlZdeBJgQ3CTLem7NeKOi2AC8SBXSoADxfRU2LQNSmhL9gJQinBI8QMjO1ITSuIHPCSj AaB16phLGpPJv7M9QrOkQvRPKwNtsdVTUxDCbvSgIl ZXMgWyBdDQogID4+ID4+MJpbQO1ZFGcpkbWbEFUjJv6XYUBpKOKtDC4iOPScCRWzQ7M4aLnsFJSOKeSb D8gesaadLV1vKZRgH999wJjbptSqJSWtUXCkFe0XOHCnSOK8JXTjuRBtTLPcAPNSLKahSQ0GnRUnIEN1 oN4uJHngABXaEOWsO8cALrKzxCxzSE18gIbpodYbqG BdDQo+Yd4NQH6eb6NvQYt9wvRbEEzpLRL2RWdlXRIvHUShAUZiDFY7VSV1ZFAHQbEqMNYaGSLeXGkzDO OyHXXdwk8NBXLuBOO4RqL6IbJkCDSiLUZcCOojYNEjVAU6USqjJEBxGIJsYR9KJiPlQDNgIBQyCJorHE VgLMPwtv9VJSDjDEEtZhYvVVFvQYRcNLZaULygSUIh ABZmYtF1KYUbUJCuLR3WFkEyNDJgSFgvJITzNFOtIPJogm4FZUSgKRBwQuIrJSOsQUPxJMIcWKupZXYd RSY8TZF7EZYoPSXqKS8IDkVmLQVdLFAqVSVdYYAgGFRiyc2ILSViTMZfSoEdBvJjYODeTTSeOKopGRJp PLSuWXQ7CDXiQBAcXU9EYvBgGVHlLAN1WMDbKBLaOS Gteh5MPRMuTCBdEIa3GCDwDBIpVVNnUHogFPUeQMM4DEO0AKWfBRJbCC9MGsGxQVWcFMqpGnXnCOScKN Seug7THQAtSLCtMbC2UkBfXBCxZHWsIMozUVMnLUAlTKG3GDQxFPOjGF3GPrSnINNxFwZhRQErXGJzDM Xgaf7NOPWbEWPkKaJ9IOUvVXCoCMVzPOmtUBTcCRC7 ACz5ONDgGGOdWC6TWbXoVKPgAworFNJiPUEpTTDxhz1CKQVgDLYmGkM8EfKtRUCjWRWdGZmsIGWoKXCp TXanWYOwLUUyWA4LXnMdQBStKvRjWRDqZIWzVLEtvz9EGIViYXRxAqM6TDWoZKIiJFJiUGjbCBJhZSY1 HUB8XABlKKMnRN9FNmDlYKAcBlnqRjJaNJGtKBWkok 6AUUCyZWL7CGfrWeXiVZGjJMFrCKfhPYDoAHDuFHO9UDGkXZQoCF5GJbFuEUPpWED8TQXlFIQhOQPfvq 9JPGAlMZE7QOm8QEIpQKCbIDNqFRvkTTOcYIU1UFbhKIIxMRWqBA0XOnZwFITnSHAtGdndVMHhDGSvgy 0FYEMmTXR4QxBgKnHrJWZuCEPuFTzhGCDeSJK1ADX4 GGXeAGUeFV8CVjJzKYYcYYu3OGhsLHOxOMDgfq6HVCVgPRL9NTU2EaEoXTErXFOaKTgzNXIoNUR3WIg5 AZKgZNAbRE7MLlUuHGNrMUpwCaQcXRVrCNXgbx4IWZEpOLE8GGS9XVWzPZDcHDZuDWznURPkKITqUwC2 SVPaRFRjDG8FIpBwYSScVhW6LrzmLMIeZHVtqr8UHB VeEIE7OVYoYsFoHVYoBYAzXCplLYLcLNGyYlXlNETmKZLsRT4SKwKwWSMvHpOmTEyqWHCnLXNzcf7JGK LwGCW5BzWjFmGkORBzZKXrTOuiXSBbFXM6HyM6PLLaKJOjAZ4MYlKfKHVuXqZ4XKvrVMOnHOLlqa6XJR FlNFE9QfNyYJArJQEbDNAuZEcsHKMqMSZ5SWOnFJBy XIHeUN3KWkLyGIBmWbldBXcoMEDgGZWsvk7BZLYtMGD0WHF3BNIaOUByDGOgYUjcMXKhSWK6ViDmIXZo UYCxJV5MKwOnWQpiKAISMxl8BIdnM7c8BRP9SB7CZ9Tnf5EzYRNlXFSBDGnrKP5jwvWqTKRpAp4BJ9sU OpbtRHXuLgJbJAWsWFD6NRA9EYAbQYUiSIvwGRysLo V4IR4jQRB5R9JwTCTgILJmWWJ7FOktUVBfTMQxQWOdE1HyCQX4AoKzSJ0HNt7QArZ2EJQ6gKMbTs6RKg a0EABJGgYlSI0QZLh= ID Date Data Source [id number] 12/13/2019 11:59:34 AM EDT [facility] Name Value Range Interpretation Code Description Data Grace rce(s) Supporting Document(s) Glucose [Mass/volume] in Capillary blood by Glucometer 89 mg/dL 70- 140 [facility] ID Date Data Source [id number] 12/13/2019 11:21:27 AM EDT [facility] Name Value Range Interpretation Code Description Data Grace rce(s) Supporting Document(s) Consultation [facility] XVHMJo9iKvLDGbZl30/KQQsbNZNki2ZqVXimDHt9QEbhYJOkQ0ZpSHL7zI9qSIQ4LDiZArDkNgXfLhA3 lbm [file] ICAgICAgICAgICAgICAgICAgICAgICAgICAgICAgIC NuSVIiCRIeGVOaEBLnPLTeJTMcDHPoQVMxDLZrJAErIP2NTFEzAEMnBNMnCCPsJVCjRSDxVSBnGOUzDI AgICAgICAgICAgICAgICAgICAgICAgICAgICAgICAgICAgICAgICAgICAgICAgICAgICAgICAgICAgIC VgLWUuWTMzEURnVWPrJB2GZESnNGRlOKPjBFZvRQVx ICAgICAgICAgICAgICAgICAgICAgICAgICAgICAgICAgICAgICAgICAgICAgICAgICAgICAgICAgICAg EUDlJUMiQGJwJIFiHROfMVYlQJHpPUXvXR3TGLRmRIFoVRXuWCDoNBKzKRQaJDXdAYPfEOXeNYTpITXj ICAgICAgICAgICAgICAgICAgICAgICAgICAgICAgIC SoXKIfNEJnGQZqYNEeYIUaLIUlRZQqDKHnYJZkZJRbEMCjSK7ZRRFuACDxJZJaCSEtCEJbGVFvQMNnUB AgICAgICAgICAgICAgICAgICAgICAgICAgICAgICAgICAgICAgICAgICAgICAgICAgICAgICAgICAgIC AaKPEpQXCqMHMuUVLoZOSmHH6DVCEfATOrABNvXPHe ICAgICAgICAgICAgICAgICAgICAgICAgICAgICAgICAgICAgICAgICAgICAgICAgICAgICAgICAgICAg NELkXKCmNGEdCSPxUNXyNXDmCYJiXRPxHUBzFH0UMXShJIDyGNGpAYMoZPHeCZMzNYVnLUJlGQGbPDFz ICAgICAgICAgICAgICAgICAgICAgICAgICAgICAgIC QtKLSzBLIgKVDqHGPdTLVxJSLzMALhYEXmXLFuHDFmGPHdFIKjOC4VWIDlTOQrKFCjDHUnZUXjQKWjVQ AgICAgICAgICAgICAgICAgICAgICAgICAgICAgICAgICAgICAgICAgICAgICAgICAgICAgICAgICAgIC AqFBJfRKXzGRXzUNIqLLTrUJDpMZ1GTIIpCDMbPLIr ICAgICAgICAgICAgICAgICAgICAgICAgICAgICAgICAgICAgICAgICAgICAgICAgICAgICAgICAgICAg XKLaCVBgDGIpUUBkBHAjCTMvGOQgNGZxNZUgJRUnJV8QIQBcPBNeGZJfEUGyXYXhMOJgNNFmDAXxMDRm ICAgICAgICAgICAgICAgICAgICAgICAgICAgICAgIC TcDEHcWRGgSEWzVRPdQZSvEMXoLTCyOKEuCPGhQXCyBUJgNDUaJCTzYR5VXO11zMYjz4R3WWBeZM0qpz c/Kg4EXSgbrmWmdKLvGF0ZUrAaDF7jde4KGlByCZ4qtr5ENLwBXuLtS3P0jNQkPGOpYDCNEoRbJ56fIZ xhWc20RHwgNTYuBmDeMSg0Gl1FLyBhR8upHRJvViT9 WCVaOqU6ULQeRnJ3MUUhZbYeHNEuVZTsLXKoSBIQUST0UGLuNeCoZfImHIIdLPyiYBMBSJAkAKOtMfWj IkBdKUEsZP0JZHKkF742obTeTYVLUo1+SYsjqtMnLefYYnK4YSRhg5RdRLi6WI5VFVGdVttlu6QaJSTr ZMONCQlzYB8IFXL5BOZ6JFEoOq5YLEKoA972zyPkWH 2WFw4LUuNuXN5mtf0UEXSwOSJlVxzXJmf7HFvfQB7JvZXxUZuRu27tpSv9acEqvNOYsZVvkMNqiAZnPA JZOPjckBAcvSjoIc3uOTHfEh5oDP9iBEXhZSVuXeRxIRPCOZ2OMRJaJNGqcXAzSLHkJYCWVQ1THYnvTZ G2IODwjhTviMFuKAspDO4ZDOLfpcIdYLBvGGLXIYs+ Oq2CUG8ja8NyBBo0FvXlWO1hgr9LUUhRIfXjI3I1zOByT1D7QUrvUk2TMBItGYBmSKZbGRCLJDjlDG9D YV7sdvD9AT7DcMDaDWOpHBCvmDJuZKy2W02pqCHmCDbvPH2MRFU+Alise+Ss9HSHDdCYFsJGHuKaXfHAXS DiBxS0PwR5QJq0SwD8IsRG80mAaqiePdAFrvWX7ZJS 6hYYOjSFUXFM2MkQBphS9kxoU4MYPaZCXBArBpA30lcRUvIKJeZDH5UJHjNe7WYNJrY4YdsyEgsXwgtm VnFLRcJXBXJS1BMZvmblWueNWatSjyOC46gLljYO6CQm2BDhFtVJ9igf3JvHJbJf3ZIAD7SO3AHVMnZR ZuSSTyNEZ7OPSnSoDhBAgwKGScIMReCCI7MAGfVSAi VX2UXmSxPOZdQdH4RRVfPEXyAORvdu3UDNDpCVK1QhN9JKJrDOBrHEGwYDebIJTeJRQfQBA9KIVoPUCn YO9AGeTwIGMtQTUiPzyaXMVzBWZtqs8KYGIuTMHuWLL3BgEoPQOsCCEwSXsmDSRoEGZ7IPAaIAOpALFk GV9CNvVdGSByKVp6EMhbVHRrZYEkdu4PWJMbGKDoSo E9GRTzBSGyPKQaNNorSBJpKNYvSuK3ZDYeZKBwGD9JMzMjKRDxHHk2WQCwJRTiAFNzag2SAFSbMVMzZN M8PpZqGBUuENErQWiyRAZpWIDnOhE5DCVyAJZxWM2OMpXxTOUoJvQ3GZFqCXVmVGKwdr1CZFCbDLOxVK fuXaYlDUMsSQQqQUsyQAReIZV2APS2SJFvFKNzJL8N NsYcOMQaEescHDeyMHHeOEZhnh0UTBXmYLNsBGWsYVWmCDFlDDVmLBhsRYWjELHdBZAtJTWtZWUdWK9R IyJqRQAhAkF5SlPaTXCrOBMosk4LQAXyCPQgEwY2CEStKWXuAPJsJUvdEROzPHO7LendYAYoMTZhVM3D GiLlBESoYwb4CGvbRQThWVQrva1ALEIcDIZsHSS2Pu UiVZPkHHMdICfgCGJgOCJqExLgCPLkGUKuZJ5AVzBrMBTuZJW2UTDgKATmGHIyfc0WYLMlOQG3XBPhBp DuWYMaXLFgAJspADHiBVDrGHdsDYMgYLBvKH4WTeXePCIxDPIjDXXsNOIuXXEkol9QQNLtGSU6ScV2Al EdIUNuPTReBIviGEXxOXWaHdMoYIUlEKXaIP5KDrDm GGCeOLP0IhlhKXEhBOSpnl9CSMCsOCL9QxnoJoNjIOEiXVJyONdmJHBqGXF0XGg5BKJsUAYqQW9REoLu FEKnOSu3OWZaTTGyFOZsgo7LNKRjPZE2QCRaIuAuNDFcRFCzGOzhTVVpIUK3XsU6QPXsFHUzCD2GDsTq BOErSBt5SXOyGTJlDQMbvj6QXIUfHLA1OYs1APMfAQ IuCCBnBIiuBIXbDXXwGQd9UDRyPIKkFJ2WXnCcPROkQrN4LCOeLEZwGTAyig3CAEThQAP8AGL3HJMzCQ AcPNNfUNbpJPLtMBVcUsixYFHbHIZdLO7IWmTvBBQkDaQnCyNiVBCvCAJujk8DHATjMVH1YnzwYVQhVP CcDGAfBZpbIQUyEYKjPmi0IHGcBINfNX8KMuBrJODo DjM2RZSaXFKrIQFkii8ZdGFwgPcosm5UVDbFGm2EyZgdEKS1DDkkIu6wzVW6IrYhKOKWJi9XrnZhNZFf CCYSXGimQMQjSXX2CFjcD2D8OkL6PCNgAOAvRmQgZkC3JQW5A7SmElNfBgT1CGgjV6PfMRyaUOUfLwAc GWIlKETpRKK8AvizXrI6DSJ+YQ9hPOr+Dc7Bd2AbptF2ccJySSm6QEA1RP6UQWSQA3TDSe== ID Date Data Source [id number] 12/13/2019 08:27:41 AM EDT [facility] Value Range Interpretation Code Description Data Grace rce(s) Supporting Document(s) Glucose [Mass/volume] in Capillary blood by Glucometer 94 mg/dL 70- 140 [facility] ID Date Data Source [id number] 12/13/2019 05:01:15 AM T [facility] Value Range Interpretation Code Description Data Grace rce(s) Supporting Document(s) Glucose [Mass/volume] in Capillary blood by Glucometer 131 mg/dL 70- 140 [facility] ID Date Data Source [id number] 12/13/2019 05:03:51 AM [facility] Value Range Interpretation Code Description Data Grace rce(s) Supporting Document(s) Magnesium [Mass/volume] in Serum or Plasma 2.1 mg/dL 1.6-2.4 [facility] ID Date Data Source [id number] 12/13/2019 05:03:51 AM [facility] Value Range Interpretation Code Description Data Grace rce(s) Supporting Document(s) Phosphate [Mass/volume] in Serum or Plasma 5.2 mg/dL 2.5-4.5 H [facility] ID Date Data Source [id number] 12/13/2019 12:37:40 AM [facility] Value Range Interpretation Code Description Data Grace rce(s) Supporting Document(s) Glucose [Mass/volume] in Capillary blood by Glucometer 135 mg/dL 70- 140 [facility] ID Date Data Source [id number] 12/12/2019 08:47:41 PM EDT [facility] Name Value Range Interpretation Code Description Data Grace rce(s) Supporting Document(s) Glucose [Mass/volume] in Capillary blood by Glucometer 110 mg/dL 70- 140 [facility] ID Date Data Source [id number] 12/12/2019 05:32:11 PM EDT [facility] Name Value Range Interpretation Code Description Data Grace rce(s) Supporting Document(s) Glucose [Mass/volume] in Capillary blood by Glucometer 138 mg/dL 70- 140 [facility] ID Date Data Source [id number] 12/12/2019 04:32:46 PM EDT [facility] Value Range Interpretation Code Description Data Grace rce(s) Supporting Document(s) Glucose [Mass/volume] in Capillary blood by Glucometer 126 mg/dL 70- 140 [facility] ID Date Data Source [id number] 12/12[facility]2019 [facility]:45[facility] Interpret[facility] Code Description Data Grace rce(s) Supporting Document(s) [facility] FYKQIt4iNoFRWkCh10/SUVxrXWWdx4MxCXokXTw5UElaJIXwX2SrNTP7uU6pSCA8DIgLQhIsKiVdZbOn [facility] [file] AgICAgICAgICAgICAgICAgICAgICAgICAgICAgICAg BYXySXObPRPbSTXtZPNpFUIfIYSkJIZnXXMeGGWxTFCiRMPiOYYeQKDaXBMnQS6LSNXbRBBtQQAxALWi ICAgICAgICAgICAgICAgICAgICAgICAgICAgICAgICAgICAgICAgICAgICAgICAgICAgICAgICAgICAg TLJfUAMyLPPvALMvRUGcOEWzEDXvSTPdUFFqYV4DVG AgICAgICAgICAgICAgICAgICAgICAgICAgICAgICAgICAgICAgICAgICAgICAgICAgICAgICAgICAgIC DqRKMhBGGvCIDsXFMfNAEzGRXbCOJpIBVlDFIiWZJlMZMbMQQuKD3NLUJjPDWvUDIsPHAnAEByAOWeIP AgICAgICAgICAgICAgICAgICAgICAgICAgICAgICAg KSXfOJYeZKNdVXPqVOZxAJSbVBNdLLQsXQVsMOCiMKQpNGRkYDLcSDIlYMRjNRNyYM1WZWHoWFDlPVCm ICAgICAgICAgICAgICAgICAgICAgICAgICAgICAgICAgICAgICAgICAgICAgICAgICAgICAgICAgICAg ICAgICAgICAgICAgICAgICAgICAgICAgICAgICAgIA 0KICAgICAgICAgICAgICAgICAgICAgICAgICAgICAgICAgICAgICAgICAgICAgICAgICAgICAgICAgIC XaKATpOGZbSFXcBCAzNWWzLAYtIVUzTBBzKCBdFQDsWYNrFAKdCJAiBH4LSQCpYGXlNLPkKCKpXEJsWE AgICAgICAgICAgICAgICAgICAgICAgICAgICAgICAg RVIcZLOjNEEhBDKeVSBxKGEoWOMbKOTcERGoJPHvAGOaJSPyULCfUQFjSQEbRLRhVNCpDA7OXJCpFUYr ICAgICAgICAgICAgICAgICAgICAgICAgICAgICAgICAgICAgICAgICAgICAgICAgICAgICAgICAgICAg ICAgICAgICAgICAgICAgICAgICAgICAgICAgICAgIC AyAO8MXONtGHUrENNbJAWfKAFfVQWaXQKqXXPoWXZnDSYbGISzHLFtKRAeDSLtQOPgXEDiMERrEPKzKF HqAXBkVJKrFJFcLVAeZMBpYVEaXXAsEAUiTXOyNWBhMRRuPKWgELEaMFDrRO4VEQZlILRhZAZjECDmET AgICAgICAgICAgICAgICAgICAgICAgICAgICAgICAg WAZrMWSfJSGrNYIgMMWoHTJsGRMzQJQbIGNvTRSuWPMdBYJkIKWvYWCdLMFtHJPnGWRtUFCaNG1EQQ60 jKJdl3X4BBVsPV2fvcr/Xc2NZBzyaaMcnJIbRG3PEpQkHY7zwy5AJqEsLM9igx2HOFzFAnIhM0O9pMSj UDNpCXMQNzOfS64jARcpAn41NLbkOAZrVaHeZLh4Ix 7UKjSmR4qaFOKoOyY5KOTyDiK1XJJtKgI2QIVmXcSiFKVeTPFwYAFiKZTOYLT0CJPfSfMjGvCrCDHpCM vbPOGUICGmJEJeJuLzKwZoJYThOL4XBISoZ579avKcNUSEQx9+JWvzcfClByoNUrT1KHGgq4TyVMm3FS 2YMKAaDarru5JmPGZyCQHMIGnmFD3EOHH8VQW7WBVk Wh9TIJBoU234ahQqRJ3WSu4VLtCrJU4iyu4SWBNqZAZrPyeOAml8AFaiYZ5EqNRqMRrOx69rgSb6ztLi yXIFLZShVBYTLV2elaClsozzKKDcGMWeRt8tAa7zULQjIMBbVoB1SRKCIZ7BVVRrIYEjsDRfQFQiQJRO NZ0GWUqrYIW7JHBsnrVajPGiRSlfWA3QEAGpfmPwFX UgMCBSDQo+Dr3JVD1yd8AwQKt0HzPoHK2nob6VYRvQFnUsS7A9fZAwN4O7CFhjQk4MXDXpJDDdJTRcGL GTBXhiLT9WYH4iwfZ1WD4DnFShMNIaTDSeaFEkTOo0S96rrWIsLRqeTO6RDTL+Alise+Yj6LOBKySKVjRX SmMxGtYYJTSvTmP8HyX0ZSx2ZxL2WkIO33nUxyryUu GNqnDE8BYS9yWTWiQNNJCK0NqZXbrW4fpnN0RQXsBNZUAoFxT71seUSdESMfLJE2NIVnVs0UBUAbI7Me bsGtiTanesIoPGJrZOGANN4SKTqaoqLgnTHpdPjiMR26sZmgIR0ODh9IGcRdGG3djb2LcVAqVh8KWBY8 DZ8BGTVnGVYmYHZnGHP7JRRmUkKzDFqkAKGrGVFjEH A5PLGtPEFdPY2HRuOzDDWhDqDeYDOfGRAeQQCarh2LZKSqVNK6XUDpEsCmVOLzREHoXEbaVWTeCOJkAO I9ARKxGRViCU8OIqKxPLNfECW6DoVzJXLxXHZreq9XZDVwZMIoFFT5RLXcPBGpHYAtGJotWRNlBFM2LX E3PDMfXBEhDE3FCxUeNTGsICgyUpDpOWHzEAImhz5G HCLoCTXqVbd3EVDoBVKvUKQeZRimJYIgBJMzSJS4JAUmURElFN3JVnOnWPSxRKveNizgCDGiGIHffq3J WOZsFCOdIHC5KLKrTWCwWOZsVJdfSZDhZVKtREU8AKIeUCVhJK0XObWtDYLgLzYmPFXzXMYfFWKivb6R BMZjFUZdXWK7FJYlLTEtMUJeTJriEUMwCNO0FVo7JF RnMVIoKF7FFsXeDGXfHdt1OtUjDOZuEDZnuw7KQXUrNYPzQHdgJYVsMVJmYYHeWPagJYDsOLXvEVS4PT MaJGRaKR7JTbTvQLOsZtIlSpYbSMVfVTNrzg0VMECuYNPkLbN3GTPmJTXeLOJtGAqoJPCvNYL3CbPjQN AsLXAvRS8MNrIqXPChFgx8FVEwQBCrDVOlwh5PAHIj DDW7LVH3PAUcGAGyKHScKFptHLBoFRCiSKCrLMKhQOSfPH3BKsDrYOBxUZMfJAhjIQNkBPXshg6HSTJn OKK1JPSkTESmNYPiPEGvVAhyZUGxXEMmVLIwXWKxSUIwBH8UIrPnCNQySDM1KcKeHTEpTXDjnk8BWDVy BSS2Fms9JRVrXYNwOGGtQZenUBIrCXOtWSYkJDCxEW ZmGI5IRrNpZPVqJBBpSUcvDIUjLEKfxy1EOGAbPQJ2YEU8EEZjAGStRUUpPItbMWUsPCK2TQE8MAFnVX KbPY5ORtCqDCUnPBujSoOuXWDuQNXelw8FWNTqROQ4CAM2RZYnLEOwOTPxEMgoFOJjPQD2FMV7VRJyVH VoRY3BDnOhYFSwUKj1ZbTvSONiUWYmpm6AIHBbHXY2 OZW1RdLhILNiUQObUHunKIQdHGAiAkC6BNHlYJSwUD5CIiCaJVGoOgN6XnIoWTBdLOQyzt0UNMHaWTZ0 AeLgTaCxIVQwNWTfDBisNPOdFMRcOsV9PWUyNAUvHK2WMvRkURQlHdO6GOVyJTZfKPWhqd0TSHIxMZL8 SDW5DaAoGERtVKRhHDgxPWNhYWW0VnGhMGFvOEUzSJ 4FBhOoFUCiOpG4UZKjXFJyJLRaej9IqEQoxBggkx5GJCiKSp6UkKcgTVW3FPvdEh6ygYY9WzKkIVKZQq 7RgcRfPLFuVBSUSWqaZKJqWKPvOEojSlw7CEIrKFNhLpZ2ReLqEMZ3FVZmBTWaLzDzPpR8NWV2A4ArKb A6CYA6CfE3YMWnMAD9RGT7UiJ6DGG1RHK+IF0gDQ o+Br9It8UzrmG8coQsPZw9LHC2EG7TSBUGM9VGAw== ID Date Data Source [id number] 12/12/2019 12:46:09 PM EDT [facility] Name Value Range Interpretation Code Description Data Grace rce(s) Supporting Document(s) Glucose [Mass/volume] in Capillary blood by Glucometer 138 mg/dL 70- 140 [facility] ID Date Data Source [id number] [facility]2019 [facility]43[facility] Interpretation Code Description Data Grace rce(s) Supporting Document(s) Glucose [Mass/volume] in Capillary blood by Glucometer 108 mg/dL 70- 140 [facility] ID Date Data Source [id number] 12/12/2019 06:14:21 AM [facility] Value Range Interpretation Code Description Data Grace rce(s) Supporting Document(s) Magnesium [Mass/volume] in Serum or Plasma 1.9 mg/dL 1.6-2.4 [facility] ID Date Data Source [id number] 12/12/2019 06:14:21 AM [facility] Value Range Interpretation Code Description Data Grace rce(s) Supporting Document(s) Phosphate [Mass/volume] in Serum or Plasma 4.3 mg/dL 2.5-4.5 [facility] ID Date Data Source [id number] 12/12/2019 05:17:48 AM [facility] Value Range Interpretation Code Description Data Grace rce(s) Supporting Document(s) Glucose [Mass/volume] in Capillary blood by Glucometer 119 mg/dL 70- 140 [facility] ID Date Data Source [id number] 12/12/2019 01:31:43 AM [facility] Value Range Interpretation Code Description Data Grace rce(s) Supporting Document(s) Glucose [Mass/volume] in Capillary blood by Glucometer 110 mg/dL 70- 140 [facility] ID Date Data Source [id number] 12/11/2019 11:15:34 PM [facility] Value Range Interpretation Code Description Data Grace rce(s) Supporting Document(s) Glucose [Mass/volume] in Capillary blood by Glucometer 84 mg/dL 70- 140 [facility] ID Date Data Source [id number] 12/11/2019 10:25:11 PM [facility] Value Range Interpretation Code Description Data Grace rce(s) Supporting Document(s) Glucose [Mass/volume] in Capillary blood by Glucometer 84 mg/dL 70- 140 [facility] ID Date Data Source [id number] 12/11/2019 09:14:11 PM [facility] Value Range Interpretation Code Description Data Grace rce(s) Supporting Document(s) Glucose [Mass/volume] in Capillary blood by Glucometer 87 mg/dL 70- 140 [facility] ID Date Data Source [id number] 12/11/2019 08:32:13 PM [facility] Value Range Interpretation Code Description Data Grace rce(s) Supporting Document(s) Glucose [Mass/volume] in Capillary blood by Glucometer 65 mg/dL 70- 140 L [facility] ID Date Data Source [id number] 12/11/2019 05:04:43 PM [facility] Value Range Interpretation Code Description Data Grace rce(s) Supporting Document(s) Glucose [Mass/volume] in Capillary blood by Glucometer 131 mg/dL 70- 140 [facility] ID Date Data Source [id number] 12/11/2019 12:44:37 PM [facility] Value Range Interpretation Code Description Data Grace rce(s) Supporting Document(s) Glucose [Mass/volume] in Capillary blood by Glucometer 127 mg/dL 70- 140 [facility] ID Date Data Source [id number] 12/11/2019 08:34:36 AM [facility] Value Range Interpretation Code Description Data Grace rce(s) Supporting Document(s) Glucose [Mass/volume] in Capillary blood by Glucometer 124 mg/dL 70- 140 [facility] ID Date Data Source [id number] 12/11/2019 05:41:04 AM [facility] Value Range Interpretation Code Description Data Grace rce(s) Supporting Document(s) Glucose [Mass/volume] in Capillary blood by Glucometer 139 mg/dL 70- 140 [facility] ID Date Data Source [id number] 12/11/2019 05:22:42 AM [facility] Value Range Interpretation Code Description Data Grace rce(s) Supporting Document(s) Magnesium [Mass/volume] in Serum or Plasma 1.9 mg/dL 1.6-2.4 [facility] ID Date Data Source [id number] 12/11/2019 05:22:42 AM [facility] Value Range Interpretation Code Description Data Grace rce(s) Supporting Document(s) Phosphate [Mass/volume] in Serum or Plasma 3.7 mg/dL 2.5-4.5 [facility] ID Date Data Source [id number] 12/11/2019 04:07:49 AM [facility] Value Range Interpretation Code Description Data Grace rce(s) Supporting Document(s) Glucose [Mass/volume] in Capillary blood by Glucometer 136 mg/dL 70- 140 [facility] ID Date Data Source [id number] 12/10/2019 10:56:16 PM [facility] Value Range Interpretation Code Description Data Grace rce(s) Supporting Document(s) Glucose [Mass/volume] in Capillary blood by Glucometer 100 mg/dL 70- 140 [facility] ID Date Data Source [id number] 12/10/2019 08:58:23 PM [facility] Value Range Interpretation Code Description Data Grace rce(s) Supporting Document(s) Glucose [Mass/volume] in Capillary blood by Glucometer 101 mg/dL 70- 140 [facility] ID Date Data Source [id number] 12/10/2019 04:15:27 PM [facility] Value Range Interpretation Code Description Data Grace rce(s) Supporting Document(s) Glucose [Mass/volume] in Capillary blood by Glucometer 134 mg/dL 70- 140 [facility] ID Date Data Source [id number] 12/10/2019 12:47:17 PM [facility] Value Range Interpretation Code Description Data Grace rce(s) Supporting Document(s) Glucose [Mass/volume] in Capillary blood by Glucometer 132 mg/dL 70- 140 [facility] ID Date Data Source [id number] 12/10/2019 08:19:18 AM [facility] Value Range Interpretation Code Description Data Grace rce(s) Supporting Document(s) Glucose [Mass/volume] in Capillary blood by Glucometer 129 mg/dL - 140 [facility] ID Date Data Source [id number] 12/10/2019 05:17:24 AM [facility] Value Range Interpretation Code Description Data Grace rce(s) Supporting Document(s) Magnesium [Mass/volume] in Serum or Plasma 1.8 mg/dL 1.6-2.4 [facility] ID Date Data Source [id number] 12/10/2019 05:17:24 AM [facility] Value Range Interpretation Code Description Data Grace rce(s) Supporting Document(s) Phosphate [Mass/volume] in Serum or Plasma 3.8 mg/dL 2.5-4.5 [facility] ID Date Data Source [id number] 12/10/2019 04:26:54 AM [facility] Value Range Interpretation Code Description Data Grace rce(s) Supporting Document(s) Glucose [Mass/volume] in Capillary blood by Glucometer 113 mg/dL 70- 140 [facility] ID Date Data Source [id number] 12/09/2019 11:35:34 PM [facility] Value Range Interpretation Code Description Data Grace rce(s) Supporting Document(s) Glucose [Mass/volume] in Capillary blood by Glucometer 118 mg/dL 70- 140 [facility] ID Date Data Source [id number] 12/09/2019 08:03:46 PM [facility] Value Range Interpretation Code Description Data Grace rce(s) Supporting Document(s) Glucose [Mass/volume] in Capillary blood by Glucometer 89 mg/dL 70- 140 [facility] ID Date Data Source [id number] 12/09/2019 04:24:20 PM [facility] Value Range Interpretation Code Description Data Grace rce(s) Supporting Document(s) Glucose [Mass/volume] in Capillary blood by Glucometer 117 mg/dL 70- 140 [facility] ID Date Data Source [id number] 12/09/2019 12:27:39 PM [facility] Value Range Interpretation Code Description Data Grace rce(s) Supporting Document(s) Glucose [Mass/volume] in Capillary blood by Glucometer 129 mg/dL 70- 140 [facility] ID Date Data Source [id number] 12/09/2019 08:40:40 AM [facility] Value Range Interpretation Code Description Data Grace rce(s) Supporting Document(s) Glucose [Mass/volume] in Capillary blood by Glucometer 125 mg/dL 70- 140 [facility] ID Date Data Source [id number] 12/09/2019 11:50:08 AM [facility] Value Range Interpretation Code Description Data Grace rce(s) Supporting Document(s) Glucose [Mass/volume] in Capillary blood by Glucometer 107 mg/dL 70- 140 [facility] ID Date Data Source [id number] 12/09/2019 05:33:43 AM [facility] Value Range Interpretation Code Description Data Grace rce(s) Supporting Document(s) Magnesium [Mass/volume] in Serum or Plasma 1.7 mg/dL 1.6-2.4 [facility] ID Date Data Source [id number] 12/09/2019 05:33:43 AM [facility] Value Range Interpretation Code Description Data Grace rce(s) Supporting Document(s) Phosphate [Mass/volume] in Serum or Plasma 3.6 mg/dL 2.5-4.5 [facility] ID Date Data Source [id number] 12/09/2019 02:05:18 AM [facility] Value Range Interpretation Code Description Data Grace rce(s) Supporting Document(s) Glucose [Mass/volume] in Capillary blood by Glucometer 102 mg/dL 70- 140 [facility] ID Date Data Source [id number] 12/08/2019 09:03:59 [facility] Value [facility] Interpretation Code Description Data Grace rce(s) Supporting Document(s) Glucose [Mass/volume] in Capillary blood by Glucometer 115 mg/dL 70- 140 [facility] ID Date Data Source [id number] 12/08/2019 06:46:30 PM [facility] Value Range Interpretation Code Description Data Grace rce(s) Supporting Document(s) Glucose [Mass/volume] in Capillary blood by Glucometer 90 mg/dL 70- 140 [facility] ID Date Data Source [id number] 12/08/2019 12:32:27 PM [facility] Value Range Interpretation Code Description Data Grace rce(s) Supporting Document(s) Glucose [Mass/volume] in Capillary blood by Glucometer 117 mg/dL 70- 140 [facility] ID Date Data Source [id number] 12/08/2019 10:17:24 AM [facility] Value Range Interpretation Code Description Data Grace rce(s) Supporting Document(s) Glucose [Mass/volume] in Capillary blood by Glucometer 96 mg/dL 70- 140 [facility] ID Date Data Source [id number] 12/08/2019 05:12:27 AM [facility] Value Range Interpretation Code Description Data Grace rce(s) Supporting Document(s) Magnesium [Mass/volume] in Serum or Plasma 1.8 mg/dL 1.6-2.4 [facility] ID Date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 QzWoCfP7CdVEPyGXA5VaDpKPv1UDSrANV8GEBsVuZ9 RQSkPTZ8DUV9VvDhBCWdPoIdZPVhRPK5UaHfJnElCEW+JB2gTBd+Fg1Wy7BnalC4iqQkASx2VXX2ZC4U SANOO2ORTq== ID Date Data Source [id number] 11/28/2019 09:49:41 PM [facility] Value Range Interpretation Code Description Data Grace rce(s) Supporting Document(s) Glucose [Mass/volume] in Capillary blood by Glucometer 211 mg/dL 70- 140 H [facility] ID Date Data Source [id number] 11/28/2019 08:28:01 PM [facility] Value Range Interpretation Code Description Data Grace rce(s) Supporting Document(s) Glucose [Mass/volume] in Capillary blood by Glucometer 157 mg/dL 70- 140 [facility] ID Date Data Source [id number] 11/28/2019 04:37:17 PM [facility] Value Range Interpretation Code Description Data Grace rce(s) Supporting Document(s) Glucose [Mass/volume] in Capillary blood by Glucometer 149 mg/dL 70- 140 [facility] ID Date Data Source [id number] 11/28/2019 11:42:38 AM [facility] Value Range Interpretation Code Description Data Grace rce(s) Supporting Document(s) Glucose [Mass/volume] in Capillary blood by Glucometer 155 mg/dL 70- 140 [facility] ID Date Data Source [id number] 11/28/2019 08:04:36 AM [facility] Value Range Interpretation Code Description Data Grace rce(s) Supporting Document(s) Glucose [Mass/volume] in Capillary blood by Glucometer 130 mg/dL 70- 140 [facility] ID Date Data Source [id number] 11/28/2019 05:18:15 AM [facility] Value Range Interpretation Code Description Data Grace rce(s) Supporting Document(s) Phosphate [Mass/volume] in Serum or Plasma 3.6 mg/dL 2.5-4.5 [facility] ID Date Data Source [id number] 11/28/2019 05:18:15 AM [facility] Value Range Interpretation Code Description Data Grace rce(s) Supporting Document(s) Magnesium [Mass/volume] in Serum or Plasma 2.0 mg/dL 1.6-2.4 [facility] ID Date Data Source [id number] 11/28/2019 04:14:59 AM [facility] Value Range Interpretation Code Description Data Grace rce(s) Supporting Document(s) Glucose [Mass/volume] in Capillary blood by Glucometer 173 mg/dL 70- 140 [facility] ID Date Data Source [id number] 11/28/2019 12:16:[facility] Interpretation Code Description Data Grace rce(s) Supporting Document(s) Glucose [Mass/volume] in Capillary blood by Glucometer 156 mg/dL 70- 140 [facility] ID Date Data Source [id number] 11/27/2019 08:17:25 PM [facility] Value Range Interpretation Code Description Data Grace rce(s) Supporting Document(s) Glucose [Mass/volume] in Capillary blood by Glucometer 194 mg/dL 70- 140 [facility] ID Date Data Source [id number] 11/27/2019 04:13:24 PM [facility] Value Range Interpretation Code Description Data Grace rce(s) Supporting Document(s) Glucose [Mass/volume] in Capillary blood by Glucometer 193 mg/dL 70- 140 [facility] ID Date Data Source [id number] 11/27/2019 01:05:43 PM [facility] Value Range Interpretation Code Description Data Grace rce(s) Supporting Document(s) Glucose [Mass/volume] in Capillary blood by Glucometer 205 mg/dL 70- 140 [facility] ID Date Data Source [id number] 11/27/2019 08:39:43 AM [facility] Value Range Interpretation Code Description Data Grace rce(s) Supporting Document(s) [facility] [id number] jb2 [file] [id number]== ID Date Data Source [id number] 11/27/2019 08:11:27 AM [facility] Value Range Interpretation Code Description Data Grace rce(s) Supporting Document(s) Glucose [Mass/volume] in Capillary blood by Glucometer 208 mg/dL 70- 140 [facility] ID Date Data Source [id number] 11/27/2019 05:22:47 AM [facility] Value Range Interpretation Code Description Data Grace rce(s) Supporting Document(s) Magnesium [Mass/volume] in Serum or Plasma 2.4 mg/dL 1.6-2.4 [facility] ID Date Data Source [id number] 11/27/2019 05:22:47 AM [facility] Value Range Interpretation Code Description Data Grace rce(s) Supporting Document(s) Phosphate [Mass/volume] in Serum or Plasma 3.8 mg/dL 2.5-4.5 [facility] ID Date Data Source [id number] 11/27/2019 05:04:20 AM [facility] Value Range Interpretation Code Description Data Grace rce(s) Supporting Document(s) Calcium.ionized [Moles/volume] in Arterial blood 1.11 mmol/L 1.13-1.3 2 L [facility] ID Date Data Source [id number] 11/27/2019 04:09:08 AM [facility] Value Range Interpretation Code Description Data Grace rce(s) Supporting Document(s) Glucose [Mass/volume] in Capillary blood by Glucometer 110 mg/dL 70- 140 [facility] ID Date Data Source [id number] 11/27/2019 12:02:04 AM [facility] Value Range Interpretation Code Description Data Grace rce(s) Supporting Document(s) Glucose [Mass/volume] in Capillary blood by Glucometer 203 mg/dL 70- 140 [facility] ID Date Data Source [id number] 11/26/2019 08:04:21 PM [facility] Value Range Interpretation Code Description Data Grace rce(s) Supporting Document(s) Glucose [Mass/volume] in Capillary blood by Glucometer 167 mg/dL 70- 140 [facility] ID Date Data Source [id number] 11/26/2019 06:59:14 PM [facility] Value Range Interpretation Code Description Data Grace rce(s) Supporting Document(s) Leukocytes [#/volume] in Blood by Automated count 11.1 10*3/uL 4-10 [facility] Erythrocytes [#/volume] in Blood by Automated count 3.39 10*6/uL 4.1- 5.3 L [facility] Hemoglobin [Mass/volume] in Blood 9.7 g/dL 11.5-15.5 L [facility] Hematocrit [Volume Fraction] of Blood by Automated count 30.3 % 3 6-45 L [facility] Erythrocyte mean corpuscular volume [Entitic volume] by Auto mated count 89.6 fL 80-96 [facility] Erythrocyte mean corpuscular hemoglobin [Entitic mass] by Automated count 28.5 pg 27-33 [facility] Erythrocyte mean corpuscular hemoglobin concentration [Mass/volume] by Automated count 31.9 g/dL 32.0-36.[address] [facility] [place] [facility] Erythrocyte distribution width [Ratio] by Automated count 16.7 % 11.5-14.5 [facility] Platelets [#/volume] in Blood by Automated count 380 10*3/uL 150-400 [facility] ID Date Data Source [id number] 11/26/2019 07:23:54 PM EDT [facility] Name Value Range Interpretation Code Description Data Grace rce(s) Supporting Document(s) Albumin [Mass/volume] in Serum or Plasma by Bromocresol green (BCG) dye binding method 3.6 g[facility] [Mass/volume] in Serum or Plasma 0.2 mg/dL <1.2 [facility] Calcium [Mass/volume] in Serum or Plasma 9.2 mg/dL 8.8-10.2 [facility] Chloride [Moles/volume] in Serum or Plasma 93 mmol/L 98-107 L [facility] Creatinine [Mass/volume] in Serum or Plasma 0.42 mg/dL 0.50-0.90 [facility] Glucose [Mass/volume] in Serum or Plasma 211 mg/dL 70-140 [facility] Alkaline phosphatase [Enzymatic activity/volume] in Serum or Plasma 104 U/L 35-104 [facility] Potassium [Moles/volume] in Serum or Plasma 4.5 mmol/L 3.4-5.1 [facility] Protein [Mass/volume] in Serum or Plasma 6.8 g/dL 6.4-8.3 [facility] Sodium [Moles/volume] in Serum or Plasma 133 mmol/L 136-145 L [facility] Aspartate aminotransferase [Enzymatic activity/volume] in Se rum or Plasma 8 U/L <32 [facility] Urea nitrogen [Mass/volume] in Serum or Plasma 27 mg/dL 8-23 [facility] Osmolality of Serum or Plasma by calculation 287 mosm/kg 275-300 [facility] Creatinine/Urea nitrogen [Mass Ratio] in Serum or Plasma 65 [facility] Bicarbonate [Moles/volume] in Serum 33 mmol/L 22-29 [facility] Alanine aminotransferase [Enzymatic activity/volume] in Seru m or Plasma 13 U/L <33 [facility] Anion gap 3 in Serum or Plasma 7 mmol/L 8-15 L [facility] Glomerular filtration rate/1.73 sq M pre dicted among non-blacks [Volume Rate/Area] in Serum or Plasma by Creatinine-based formula (MDRD) >6 0 [facility] Glomerular filtration rate/1.73 sq M pre dicted among blacks [Volume Rate/Area] in Serum or Plasma by Creatinine-based formula (MDRD) >60 [facility] ID Date Data Source [id number] 11/26/2019 07:23:54 PM [facility] Value Range Interpretation Code Description Data Grace rce(s) Supporting Document(s) Magnesium [Mass/volume] in Serum or Plasma 1.9 mg/dL 1.6-2.4 [facility] ID Date Data Source [id number] 11/26/2019 07:23:54 PM [facility] Value Range Interpretation Code Description Data Grace rce(s) Supporting Document(s) Phosphate [Mass/volume] in Serum or Plasma 3.6 mg/dL 2.5-4.5 [facility] ID Date Data Source [id number] 11/26/2019 04:15:13 PM [facility] Value Range Interpretation Code Description Data Grace rce(s) Supporting Document(s) Glucose [Mass/volume] in Capillary blood by Glucometer 148 mg/dL 70- 140 [facility] ID Date Data Source [id number] 11/26/2019 12:36:09 PM EDT [facility] Name Value Range Interpretation Code Description Data Grace rce(s) Supporting Document(s) Glucose [Mass/volume] in Capillary blood by Glucometer 177 mg/dL 70- 140 [facility] ID Date Data Source [id number] 11/26/2019 08:14:55 AM [facility] Value Range Interpretation Code Description Data Grace rce(s) Supporting Document(s) Glucose [Mass/volume] in Capillary blood by Glucometer 195 mg/dL 70- 140 [facility] ID Date Data Source [id number] 11/26/2019 05:17:49 AM [facility] Value Range Interpretation Code Description Data Grace rce(s) Supporting Document(s) Magnesium [Mass/volume] in Serum or Plasma 2.1 mg/dL 1.6-2.4 [facility] ID Date Data Source [id number] 11/26/2019 05:17:49 AM [facility] Value Range Interpretation Code Description Data Grace rce(s) Supporting Document(s) Phosphate [Mass/volume] in Serum or Plasma 4.2 mg/dL 2.5-4.5 [facility] ID Date Data Source [id number] 11/26/2019 04:57:23 AM [facility] Value Range Interpretation Code Description Data Grace rce(s) Supporting Document(s) Calcium.ionized [Moles/volume] in Arterial blood 1.19 mmol/L 1.13-1.3 2 [facility] ID Date Data Source [id number] 11/26/2019 04:44:56 AM [facility] Value Range Interpretation Code Description Data Grace rce(s) Supporting Document(s) Glucose [Mass/volume] in Capillary blood by Glucometer 165 mg/dL 70- 140 [facility] ID Date Data Source [id number] 11/26/2019 02:47:23 AM [facility] Value Range Interpretation Code Description Data Grace rce(s) Supporting Document(s) Glucose [Mass/volume] in Capillary blood by Glucometer 190 mg/dL 70- 140 [facility] ID Date Data Source [id number] 11/25/2019 09:58:19 PM [facility] Value Range Interpretation Code Description Data Grace rce(s) Supporting Document(s) Glucose [Mass/volume] in Capillary blood by Glucometer 158 mg/dL 70- 140 [facility] ID Date Data Source [id number] 11/25/2019 07:25:41 PM [facility] Value Range Interpretation Code Description Data Grace rce(s) Supporting Document(s) Glucose [Mass/volume] in Capillary blood by Glucometer 170 mg/dL 70- 140 [facility] ID Date Data Source [id number] 11/25/2019 03:53:34 PM [facility] Value Range Interpretation Code Description Data Grace rce(s) Supporting Document(s) Glucose [Mass/volume] in Capillary blood by Glucometer 217 mg/dL 70- 140 [facility] ID Date Data Source [id number] 11/25/2019 11:44:38 AM [facility] Value Range Interpretation Code Description Data Grace rce(s) Supporting Document(s) Glucose [Mass/volume] in Capillary blood by Glucometer 110 mg/dL 70- 140 [facility] ID Date Data Source [id number] 11/25/2019 10:12:03 AM [facility] Value Range Interpretation Code Description Data Grace rce(s) Supporting Document(s) [facility] FGKQPa3uOpWUPgBt05/NVDukBODff6AeCPwzRAq6DLjkWNMzD3RqOIC4qU5pKLP5WKhOJuEqYoGwUcI9 lbm [file] 4pKN4k9bF6w3Ft4a6DZuxVxHZQaVVxw0lbmbe2+[employer] 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 [file] YY52XyJHcduBidKAHQHBhijk/fG2ZL69VNDT9e+dVC9KWWfUJIHQo70oCYxnU+m8SfiaPbpVuGtzW+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 [file] AgICAgICAgICAgICAgICAgICAgICAgICAgICAgICAgICAgICAgICAgICAgICAgICAgICAgICAgICAgIC AgICAgICAgICAgICAgICAgDQogICAgICAgICAgICAgICAgICAgICAgICAgICAgICAgICAgICAgICAgIC AgICAgICAgICAgICAgICAgICAgICAgICAgICAgICAg ICAgICAgICAgICAgICAgICAgICAgICAgICAgDQogICAgICAgICAgICAgICAgICAgICAgICAgICAgICAg ICAgICAgICAgICAgICAgICAgICAgICAgICAgICAgICAgICAgICAgICAgICAgICAgICAgICAgICAgICAg ICAgICAgICAgDQogICAgICAgICAgICAgICAgICAgIC AgICAgICAgICAgICAgICAgICAgICAgICAgICAgICAgICAgICAgICAgICAgICAgICAgICAgICAgICAgIC AgICAgICAgICAgICAgICAgICAgDQogICAgICAgICAgICAgICAgICAgICAgICAgICAgICAgICAgICAgIC AgICAgICAgICAgICAgICAgICAgICAgICAgICAgICAg ICAgICAgICAgICAgICAgICAgICAgICAgICAgICAgDQogICAgICAgICAgICAgICAgICAgICAgICAgICAg ICAgICAgICAgICAgICAgICAgICAgICAgICAgICAgICAgICAgICAgICAgICAgICAgICAgICAgICAgICAg ICAgICAgICAgICAgDQogICAgICAgICAgICAgICAgIC AgICAgICAgICAgICAgICAgICAgICAgICAgICAgICAgICAgICAgICAgICAgICAgICAgICAgICAgICAgIC AgICAgICAgICAgICAgICAgICAgICAgDQogICAgICAgICAgICAgICAgICAgICAgICAgICAgICAgICAgIC AgICAgICAgICAgICAgICAgICAgICAgICAgICAgICAg ICAgICAgICAgICAgICAgICAgICAgICAgICAgICAgICAgDQogICAgICAgICAgICAgICAgICAgICAgICAg ICAgICAgICAgICAgICAgICAgICAgICAgICAgICAgICAgICAgICAgICAgICAgICAgICAgICAgICAgICAg ICAgICAgICAgICAgICAgDQogICAgICAgICAgICAgIC AgICAgICAgICAgICAgICAgICAgICAgICAgICAgICAgICAgICAgICAgICAgICAgICAgICAgICAgICAgIC VsPUZvVWPqGBKbKGJxASFcGMSnFUYuQDUdMBc6K7vdJRMjWASfQJ7jHEm1Fs6+LOkCOwNmSHL2zjAbdD 2QZT7hs6WwAFobYBKmh9ZkMZp9AR4GZRRlZXtaOJ5A VOhdwc1VJGQxSDIsyQMOn3tiFzQnVRZ2HPAnYucmJU3EPWKcH4dncuQmQWKtSIEEPFrbOCDMLWffMKIB NQStASJfGfOjMaKmXIXaADCwNPPOEN2ERxIpW8VgpJ68WBLWRy0+RWfuizLuTjnKWpHeMDMtu3GhCRt8 FA1CIRUsJlylk3EuNLQdUDIXVJdjVP8OMEO8BHToJS CzGg7TBERsC068qbSfQO4RIp5STwIjLY1yed1PGSIvVCDkHaaNOcc1FQyxLZ5VnVGyGMdOx10wqVu8xy MwmQMMTNKqQMGsu0EsJL3OTMR9LAEwDdSpQyQiOFEfGjffUsXSLPcNHpCuV1Hpb1DhDiT5OHCbTvZcVT otRVMzYdU5HF29iPumPH8ZSTZxNRZcNH43PNSrONYd Th7YEq4SYlCjSG9hub9AWISyMGVbOspTLwd3JVaxLN0VrFYkC8NliHJbo6hHIpWcH7TYUOR6GFZxJe0N DLKoVaNiOZXsTTakRD0zLIDkFDUGyIzkywK1MO4IEH5cotWiHA5AXlQmIg0oTf6IVdAiG0HxE7AhWJBi DVSSYYfsSB9NMSrxCD7eLV3Wo0VIlIGoyT8zpq1IQY UrCAUgLlyjey3QEgvqK5C0pQwzDCBqICXzVPEVWWgaQV8HLNWaPET2QPN9EBBrGKFUNsLpD79qAH3ND0 Eyh94aCrI9SDIpIkJpOLwgFU76uIdsvpSkfZJpyPjkZH0AGa4+DQplbmRvYmoNCnhyZWYNCjAgNDQNCj SgAXQlYFLkOBSwAbD8XcZjSv5LNEBpUPEyPXRnSkRu MGSdYYAyRGipDSEnBpU1EBJ5FDYqRHGrRB8RRaZhOHAiELXwEwVzUENaQHPgnn3RUEJoLWMwNOF6IzKx XHHxNJOoGSamIYLvYQNyPKS0RWGqZSGqWH7SLlOmZTIkEZZoCJXpWRSiFGFmhj6JGFXxTEUqUfZfFtTc OJJoDSAsHGqnPVLbJMV5TqE8IMLfEAGxWY0JMhIcXG VwWPsgFSPqUDKfMJDkls6FAZHeRIRaGOZ5KfBvIZEsJDMrGSzoZNTkCDNrJHBvVIMsYZLiWX1JCjElSL NmLYP7AujeBYUuYXPipq7YWLEjPZLxGNF8CQZyJSJtZZUjSCpfRYJeVIM8KmsfVYPiRNHbPH7AGqKsKI AcKKKkLIHaFOXyAGTqbl9RALSaSHJpJdPmZJLzBPJt FTVtDBysEGItWWD5ZJXeCDEwIYThGF1LZdLsIKJsRAq8RZbtGJIiDKGbrs0XGWYlZGGeAnx4XEBqBFOa WBMkZOoaSYOxASP1WCLfUSQtGMAgMT9TYoGyLVSqOTghIBNwIAMdAKSoux7VAYBmHLLyLEF1ZKQiBZGg OCTwXJqkEGIqXSHwApUgKRNwCZEsYN2ANvFeFZHoMk T0HQrnUKQjVRHsce7HKKCwPULdMWWtQWOgDBUpOCUjJZspKEKsLAIiCZC8PVXmYFUhBF7XAwMbEXCvLv MvRmUcAGQoJVLwwp0UOIHuQGBlNpC0XxHjOWEjHTSzJJffFXRfXECxHpbbJQKaPXUaXJ2VBiTeJEHsPb X1GduaUUDqPHSzok3DGXVyFJZqKbs8RKVcFNGmQRDj CTcaFFOmSNW3FTCgKNJpPWStXS2MCnGxBKWaPaKuFNZkPICiJQHijg1KKYMtAOBwXRD5PPWnENPrBRLc XLjqJTCrHIy9WyC4GLZsNRMpHL1DRhQaEOCrDSV5HJdtIPQpUKQzsh0XQGLkHSP7JxR7VvDmKIQvOGUp KGnpUFUlNFUnPtj3BDAcWZTxQD3HZwFgUDOhJUV7GK JtBIXnVMOtlm1CNAGfDTWuJUz6HBCnJKYtBQMpZZsjNIFbKvM5VRZnYKRmKOCrFH5ZVoJnMWNpTAY2Fx WwKWIrTARaer4RNLKjTTZcOtS9BFEoFEYhVHNrDCv6dnHclPEsOWt5YQ0RC4AuamNvISQECt4Vd320WI RwAFPqLe2ZZ6svIi2aOPMfKATJKq9YCJs0FJOxNqPj TbRrBeLmDNCyIwPeRyD7Q8BoK8A0AAXbUYT+FUu7XwFwJbShTWA0Q5IeUtPpFOE5KPD5HrSzSHa5OiAt MY3dUKDDVu5+UPwarWXkvTtqSETIUeOjBfahMO1DONPXG7SWCr== ID Date Data Source [id number] 11/25/2019 09:24:58 AM EDT [facility] Name Value Range Interpretation Code Description Data Grace rce(s) Supporting Document(s) LMW Heparin [Mass/time] in 24 hour Urine 0.13 IU/ml [facility] ID Date Data Source [id number] 11/25/2019 08:02:41 AM EDT [facility] Value Range Interpretation Code Description Data Grace rce(s) Supporting Document(s) Glucose [Mass/volume] in Capillary blood by Glucometer 143 mg/dL 70- 140 H [facility] ID Date Data Source [id number] 11/25/2019 04:45:59 AM EDT [facility] Name Value Range Interpretation Code Description Data Grace rce(s) Supporting Document(s) Magnesium [Mass/volume] in Serum or Plasma 2.0 mg/dL 1.6-2.4 [facility] ID Date Data Source [id number] 11/25/2019 04:45:59 AM [facility] Value Range Interpretation Code Description Data Grace rce(s) Supporting Document(s) Phosphate [Mass/volume] in Serum or Plasma 4.3 mg/dL 2.5-4.5 [facility] ID Date Data Source [id number] 11/25/2019 08:43:28 AM [facility] Value Range Interpretation Code Description Data Grace rce(s) Supporting Document(s) Potassium [Moles/volume] in Serum or Plasma 4.3 mmol/L 3.4-5.1 [facility] ID Date Data Source [id number] 11/25/2019 04:29:18 AM [facility] Value Range Interpretation Code Description Data Grace rce(s) Supporting Document(s) Glucose [Mass/volume] in Capillary blood by Glucometer 130 mg/dL 70- 140 [facility] ID Date Data Source [id number] 11/25/2019 04:23:13 AM [facility] Value Range Interpretation Code Description Data Grace rce(s) Supporting Document(s) Calcium.ionized [Moles/volume] in Arterial blood 1.14 mmol/L 1.13-1.3 2 [facility] ID Date Data Source [id number] 11/25/2019 12:18:20 AM [facility] Value Range Interpretation Code Description Data Grace rce(s) Supporting Document(s) Glucose [Mass/volume] in Capillary blood by Glucometer 136 mg/dL 70- 140 [facility] ID Date Data Source [id number] 11/24/2019 08:31:24 PM [facility] Value Range Interpretation Code Description Data Grace rce(s) Supporting Document(s) Glucose [Mass/volume] in Capillary blood by Glucometer 129 mg/dL 70- 140 [facility] ID Date Data Source [id number] 11/24/2019 04:04:47 PM [facility] Value Range Interpretation Code Description Data Grace rce(s) Supporting Document(s) Glucose [Mass/volume] in Capillary blood by Glucometer 115 mg/dL 70- 140 [facility] ID Date Data Source [id number] 11/24/2019 12:03:42 PM [facility] Value Range Interpretation Code Description Data Grace rce(s) Supporting Document(s) Glucose [Mass/volume] in Capillary blood by Glucometer 153 mg/dL 70- 140 H [facility] ID Date Data Source [id number] 11/24/2019 08:12:15 AM [facility] Value Range Interpretation Code Description Data Grace rce(s) Supporting Document(s) Glucose [Mass/volume] in Capillary blood by Glucometer 142 mg/dL 70- 140 H [facility] ID Date Data Source [id number] 11/24/2019 04:33:22 AM [facility] Value Range Interpretation Code Description Data Grace rce(s) Supporting Document(s) Glucose [Mass/volume] in Capillary blood by Glucometer 136 mg/dL 70- 140 [facility] ID Date Data Source [id number] 11/24/2019 05:02:11 AM [facility] Value Range Interpretation Code Description Data Grace rce(s) Supporting Document(s) Leukocytes [#/volume] in Blood by Automated count 8.3 10*3/uL 4-10 [facility] Erythrocytes [#/volume] in Blood by Automated count 3.20 10*6/uL 4.1- 5.3 [facility] Hemoglobin [Mass/volume] in Blood 9.3 g/dL 11.5-15.5 [facility] Hematocrit [Volume Fraction] of Blood by Automated count 28.6 % 3 6-45 [facility] Erythrocyte mean corpuscular volume [Entitic volume] by Auto mated count 89.3 fL 80-96 [facility] Erythrocyte mean corpuscular hemoglobin [Entitic mass] by Automated count 29.2 pg 27-33 [facility] Erythrocyte mean corpuscular hemoglobin concentration [Mass/volume] by Automated count 32.6 g/dL 32.0-36[facility] width [Ratio] by Automated count 17.4 % 11.5-14.5 [facility] Platelets [#/volume] in Blood by Automated count 358 10*3/uL 150-400 [facility] Differential cell count method - Blood [facility] Neutrophils/100 leukocytes in Blood by Automated count 66 % [facility] Lymphocytes/100 leukocytes in Blood by Automated count 18 % [facility] Monocytes/100 leukocytes in Blood by Automated count 11 % [facility] Eosinophils/100 leukocytes in Blood by Automated count 4 % [facility] Basophils/100 leukocytes in Blood by Automated count 1 % [facility] Neutrophils [#/volume] in Blood by Automated count 5.53 10*3/uL 1.8-7 .0 [facility] Lymphocytes [#/volume] in Blood by Automated count 1.47 10*3/uL 1.2-4 .0 [facility] Monocytes [#/volume] in Blood by Automated count 0.94 10*3/uL 0-0.8 H [facility] Eosinophils [#/volume] in Blood by Automated count 0.29 10*3/uL 0-0.5 [facility] Basophils [#/volume] in Blood by Automated count 0.10 10*3/uL 0-0.2 [facility] Nucleated erythrocytes/100 leukocytes [Ratio] in Blood by Automated count 0 /100{WBCs} 0-0 [facility] ID Date Data Source [id number] 11/24/2019 05:19:58 AM EDT [facility] Name Value Range Interpretation Code Description Data Grace rce(s) Supporting Document(s) Albumin [Mass/volume] in Serum or Plasma by Bromocresol green (BCG) dye binding method 3.4 g/dL 3.5-5.2 [facility] Bil[facility].total [Mass/volume] in Serum or Plasma 0.3 mg/dL <1.2 [facility] Calcium [Mass/volume] in Serum or Plasma 9.4 mg/dL 8.8-10.2 [facility] Chloride [Moles/volume] in Serum or Plasma 96 mmol/L 98-107 L [facility] Creatinine [Mass/volume] in Serum or Plasma 0.37 mg/dL 0.50-0.90 L [facility] Glucose [Mass/volume] in Serum or Plasma 135 mg/dL 70-140 [facility] Alkaline phosphatase [Enzymatic activity/volume] in Serum or Plasma 101 U/L 35-104 [facility] Potassium [Moles/volume] in Serum or Plasma 4.3 mmol/L 3.4-5.1 [facility] Protein [Mass/volume] in Serum or Plasma 6.3 g/dL 6.4-8.3 L [facility] Sodium [Moles/volume] in Serum or Plasma 138 mmol/L 136-145 [facility] Aspartate aminotransferase [Enzymatic activity/volume] in Se rum or Plasma 9 U/L <32 [facility] Urea nitrogen [Mass/volume] in Serum or Plasma 23 mg/dL 8-23 [facility] Osmolality of Serum or Plasma by calculation 291 mosm/kg 275-300 [facility] Creatinine/Urea nitrogen [Mass Ratio] in Serum or Plasma 62 [facility] Bicarbonate [Moles/volume] in Serum 32 mmol/L 22-29 H [facility] Alanine aminotransferase [Enzymatic activity/volume] in Seru m or Plasma 14 U/L <33 [facility] Anion gap 3 in Serum or Plasma 10 mmol/L 8-15 [facility] Glomerular filtration rate/1.73 sq M pre dicted among non-blacks [Volume Rate/Area] in Serum or Plasma by Creatinine-based formula (MDRD) >6 0 [facility] Glomerular filtration rate/1.73 sq M pre dicted among blacks [Volume Rate/Area] in Serum or Plasma by Creatinine-based formula (MDRD) >60 [facility] ID Date Data Source [id number] 11/24/2019 05:19:[address] [facility] Name Value Range Interpretation Code Description Data Grace rce(s) Supporting Document(s) Magnesium [Mass/volume] in Serum or Plasma 2.0 mg/dL 1.6-2.4 [facility] ID Date Data Source [id number] 11/24/2019 05:19:58 AM [facility] Value Range Interpretation Code Description Data Grace rce(s) Supporting Document(s) Phosphate [Mass/volume] in Serum or Plasma 4.4 mg/dL 2.5-4.5 [facility] ID Date Data Source [id number] 11/24/2019 04:57:00 AM [facility] Value Range Interpretation Code Description Data Grace rce(s) Supporting Document(s) Calcium.ionized [Moles/volume] in Arterial blood 1.16 mmol/L 1.13-1.3 2 [facility] ID Date Data Source [id number] 11/23/2019 11:54:23 PM [facility] Value Range Interpretation Code Description Data Grace rce(s) Supporting Document(s) Glucose [Mass/volume] in Capillary blood by Glucometer 122 mg/dL 70- 140 [facility] ID Date Data Source [id number] 11/23/2019 07:52:08 PM [facility] Value Range Interpretation Code Description Data Grace rce(s) Supporting Document(s) Glucose [Mass/volume] in Capillary blood by Glucometer 115 mg/dL 70- 140 [facility] ID Date Data Source [id number] 11/23/2019 03:38:37 PM [facility] Value Range Interpretation Code Description Data Grace rce(s) Supporting Document(s) Glucose [Mass/volume] in Capillary blood by Glucometer 117 mg/dL 70- 140 [facility] ID Date Data Source [id number] 11/23/2019 12:06:15 PM [facility] Value Range Interpretation Code Description Data Grace rce(s) Supporting Document(s) Glucose [Mass/volume] in Capillary blood by Glucometer 144 mg/dL 70- 140 H [facility] ID Date Data Source [id number] 11/23/2019 08:01:10 AM [facility] Value Range Interpretation Code Description Data Grace rce(s) Supporting Document(s) Glucose [Mass/volume] in Capillary blood by Glucometer 128 mg/dL 70- 140 [facility] ID Date Data Source [id number] 11/23/2019 04:39:09 AM [facility] Value Range Interpretation Code Description Data Grace rce(s) Supporting Document(s) Leukocytes [#/volume] in Blood by Automated count 9.3 10*3/uL 4-10 [facility] Erythrocytes [#/volume] in Blood by Automated count 3.12 10*6/uL 4.1- 5.3 L [facility] Hemoglobin [Mass/volume] in Blood 9.1 g/dL 11.5-15.5 L [facility] Hematocrit [Volume Fraction] of Blood by Automated count 27.9 % 3 6-45 L [facility] Erythrocyte mean corpuscular volume [Entitic volume] by Auto mated count 89.5 fL 80-96 [facility] Erythrocyte mean corpuscular hemoglobin [Entitic mass] by Automated count 29.1 pg 27-33 [facility] Erythrocyte mean corpuscular hemoglobin concentration [Mass/volume] [facility] 32.5 [facility] width [Ratio] by Automated count 17.6 % 11.5-14.5 H [facility] Platelets [#/volume] in Blood by Automated count 356 10*3/uL 150-400 [facility] Differential cell count method - Blood [facility] Neutrophils/100 leukocytes in Blood by Automated count 70 % [facility] Lymphocytes/100 leukocytes in Blood by Automated count 13 % [facility] Monocytes/100 leukocytes in Blood by Automated count 13 % [facility] Eosinophils/100 leukocytes in Blood by Automated count 3 % [facility] Basophils/100 leukocytes in Blood by Automated count 1 % [facility] Neutrophils [#/volume] in Blood by Automated count 6.53 10*3/uL 1.8-7 .0 [facility] Lymphocytes [#/volume] in Blood by Automated count 1.18 10*3/uL 1.2-4 .0 L [facility] Monocytes [#/volume] in Blood by Automated count 1.17 10*3/uL 0-0.8 H [facility] Eosinophils [#/volume] in Blood by Automated count 0.30 10*3/uL 0-0.5 [facility] Basophils [#/volume] in Blood by Automated count 0.08 10*3/uL 0-0.2 [facility] Nucleated erythrocytes/100 leukocytes [Ratio] in Blood by Automated count 0 /100{WBCs} 0-0 [facility] ID Date Data Source [id number] 11/23/2019 04:58:05 AM EDT [facility] Name Value Range Interpretation Code Description Data Grace rce(s) Supporting Document(s) Bicarbonate [Moles/volume] in Serum 31 mmol/L 22-29 H [facility] Chloride [Moles/volume] in Serum or Plasma 93 mmol/L 98-107 L [facility] Creatinine [Mass/volume] in Serum or Plasma 0.34 mg/dL 0.50-0.90 L [facility] Glucose [Mass/volume] in Serum or Plasma 158 mg/dL 70-140 [facility] Potassium [Moles/volume] in Serum or Plasma 4.3 mmol/L 3.4-5.1 [facility] Sodium [Moles/volume] in Serum or Plasma 137 mmol/L 136-145 [facility] Urea nitrogen [Mass/volume] in Serum or Plasma 22 mg/dL 8-23 [facility] Anion gap 3 in Serum or Plasma 13 mmol/L 8-15 [facility] Osmolality of Serum or Plasma by calculation 291 mosm/kg 275-300 [facility] Creatinine/Urea nitrogen [Mass Ratio] in Serum or Plasma 65 [facility] Calcium [Mass/volume] in Serum or Plasma 9.1 mg/dL 8.8-10.2 [facility] Glomerular filtration rate/1.73 sq M pre dicted among non-blacks [Volume Rate/Area] in Serum or Plasma by Creatinine-based formula (MDRD) >6 0 [facility] Glomerular filtration rate/1.73 sq M pre dicted among blacks [Volume Rate/Area] in Serum or Plasma by Creatinine-based formula (MDRD) >60 [facility] ID Date Data Source [id number] 11/23/2019 04:58:[address] [facility] Name Value Range Interpretation Code Description Data Grace rce(s) Supporting Document(s) Magnesium [Mass/volume] in Serum or Plasma 2.0 mg/dL 1.6-2.4 [facility] ID Date Data Source [id number] 11/23/2019 04:58:05 AM [facility] Value Range Interpretation Code Description Data Grace rce(s) Supporting Document(s) Phosphate [Mass/volume] in Serum or Plasma 4.0 mg/dL 2.5-4.5 [facility] ID Date Data Source [id number] 11/23/2019 04:35:52 AM [facility] Value Range Interpretation Code Description Data Grace rce(s) Supporting Document(s) Calcium.ionized [Moles/volume] in Arterial blood 1.19 mmol/L 1.13-1.3 2 [facility] ID Date Data Source [id number] 11/23/2019 04:07:02 AM [facility] Value Range Interpretation Code Description Data Grace rce(s) Supporting Document(s) Glucose [Mass/volume] in Capillary blood by Glucometer 149 mg/dL 70- 140 H [facility] ID Date Data Source [id number] 11/23/2019 12:55:00 AM [facility] Value Range Interpretation Code Description Data Grace rce(s) Supporting Document(s) Glucose [Mass/volume] in Capillary blood by Glucometer 129 mg/dL 70- 140 [facility] ID Date Data Source [id number] 11/22/2019 08:56:09 PM [facility] Value Range Interpretation Code Description Data Grace rce(s) Supporting Document(s) Glucose [Mass/volume] in Capillary blood by Glucometer 134 mg/dL 70- 140 [facility] ID Date Data Source [id number] 11/22/2019 04:02:33 PM [facility] Value Range Interpretation Code Description Data Grace rce(s) Supporting Document(s) Glucose [Mass/volume] in Capillary blood by Glucometer 139 mg/dL 70- 140 [facility] ID Date Data Source [id number] 11/22/2019 12:02:17 PM [facility] Value Range Interpretation Code Description Data Grace rce(s) Supporting Document(s) [facility] PJXKHk7mFwXWEmWuj2UbLqFmUVXzHZ3qapd0L9V4pPXuI5SvaJOza9jiV4OkT8SaKWYfYGJHZX7YuJDc jb2 [file] vqEahGoQqkGoBqEahGoQqkGoBqEahGqg+flow floor attendant+flow floor attendant+flow floor attendant+iP8WgLCRGKDhPHkNa3FP4QsmBqruZYFOT1o [file] [id number]/92Ht6//7G7aXk/f Lva168/v8AG5058imR8168+83bP3/717eakb8yf7pls/g1nTNEH/m/fffl19//9CaRwuu+yT9/8+7D66 G/+yVRI260/idS5k593/buq1++sejH61BK+l/av/o//Z5y1TOFygxm2+9/+vT3E48L//Fu5xdyxnpfo0 evF/r+7Rff/fDh67/xz9tMj+bylz//2x//+qcf//Xt v/+vt9++//alhI/xwzy53VR+/oe3r7/85K2ji2//8t9k/svfv/3lz2/+c20/t4rEPy80Pibvb3/1Xz5h MNQNU5U//enn/8FnrykHlusF/+i6cEh0sOXO5q9e/l+QdgU7hSXX1h9HwPN838etm/+WPcTXaHivLm/f UCdT+C0ycOoH8/VTlUWhnGhXP/7bj3/0i6bdr3q6z3 9//+XbL95/9/H9h/efydo++9PR8z/d/yjRxr2l/j0i3U+T/5tM2Vf4CS16+LIqae5oiz/++T//8e2vv/ /PHz+7+1pul9YweyeOc+SXXz7KmNamg5/grz++/fHP//njX//n7//9b9x+a/Tz2+e7Px/ms9e5vc7f7p u3f/0fr3f/41/+/NPbR+K6n9w+b/Fgv/q07469+gO/ 9boUeLP+489tT1jMU9l3uuou0KoLog+YfIZFA/3b/4t06ztrf/bxZ5/efv///Pgf/1RiJU4I9PltDpzt d56gV//z/va//vovf/+TX+/v8Isf//T7f//sC6/P8K9+/z/+8Pv/+OPv//bYr7tvui07e//XBzx6+viX v/zpiztQWH/aft7Xg9/5wxdysVPGsZssUHD/4NOPf/ i//fvED7hi4ubOs3b53z/4IbpE8Y//7t9mHetbe/jqm9dI/Rq/33/5vl3RGqHnlF/96jWEf/4UB5s1Dg 3//2k9NAG8CAFba5//f/74Jm9/+bc3+OrGn73Jq4Et3dlrUMqVuHt08dkusqj81sE88rqa1406Ct/3G0 1xy7685Bjk5ce156elOaOIao77/w9ZRVl+CmVuZHN0 ssWhzMubtuDvJmdSCHwpUFHiDep2VY6JdHGwKVRzT4S5FNEqxa2sLWAeSUMawABaEsUcYYZERP5DhXCz FU6UBTf1SGItJPKnKdJoNTErjfK3FRToUQVkZAXgH1MwphKhnVNaNSUgEy9+SY2yr5JlOsFhQRXkMck8 VI6GfNLvLW2RyYAnaI2ehhGhT056toLiKFOtGxjlk3 YfCIdiVFLOTX5QCTC6DVI0QLBrNx9+AR4tf2MvOjBlOZToRyo1QR5JzBGxh9AoCI9JA0HtJZCiLQATNE O7s1GkPMHtrlqdvrzjQ4LcGRQ7aW4rYVN0KZNcKEoiMCEjOAQyKdHfFVNyMJqtLRAkFWMvNGRhNPGhWF f2zSSnIT3ZW1KrRTWgFTMLRJSniqPhRr9mOLPXV4uv ZF9TEoaaUkp2Oia3PKlvX9X5YqqrY6ApRZ0BF3KuFJSsPLQLFATsdpVxOE3VhpFpvW8wANyNZLVXDWmW YPbkOkP1k37offQJSELcPLOrXQhpLVKiZZRlQQPgZIKrEWEyOMBmGZMoYW9KG6MxRSKaANHICGA4z5Ec AXAngaqgocbyWx4xdvSoWol+MmjqCUQsz1QkJGdaE5 F4qLHrB3SeL3WjUD4OfVUqCMhoAVArPUMpPZNzY475zpPdER8+SD8eg1MuWyzlMIAZCSGxSJDxJCAsBN X1JdFuPDSvSRUhAUHqKwS9IgGsXrTJMZDfBLD6IoEpHeUwAYHvSBRgOKthOZEpKED4WCg9CGYvEWPpHV 4gCjAwMDAwNjcxNDQgMDAwMDAgbiAKMDAwMDAwMDAw BRX2JJRhGUHbHCsiGVLfHODxHEC8MWOwNWToST0lPtHpTTGrHCRmQbkbGSTcZXBsymKRPAUlXQAgNFX9 MeAtMJYiEQSvLYjrPSViBZYgToe8VSViYADqZB4wWzQuNQYoRVW0LNuiNEZlWTZukmYDHEDnMLImNIUf CsVeCKHuMANxAJzbKQXmSQKgJqAmFXUlICHwAQ7nAx DfLWRrWKT0PEYdZEIwMBVoqoFEMGJtCATaXFc1XSPmXMKkNZHjTPthZJXfHBWdLYN0QLVtKXRkIO2eLg XpDCTrMUFqGNXgGYQmIEOyjtYBVKMpKVRoHFT4VFTsXUCeYSJmSAmoOBBrDXLjAub5HHUqXPJfHP5oFt RkQAKrNDC1AZWhFRNjTWNlgbVCIBIpXIZ2Osz1MIQf MYGrZNZaIKdaODOfDOHuZdM0LWFqBPBzGS4jQbMjIKHjZQN5LpAeMEHmSZPffgBRXBPzVLUcAEG1RhUt IZOkLTOfGUpsNKUdLSTxGQJjHGU1OMQ7GHYnIqVkUVvhNYESFBdSB9VdjsZtTuOAB4qsQp6nIuElIHTH D3Zul9GuPTKdBLRLCd0+VpC4ZFG8tJMhAdr4LiC9ChyrVZOWBo== ID Date Data Source [id number] 11/22/2019 11:55:37 AM EDT [facility] Value Range Interpretation Code Description Data Grace rce(s) Supporting Document(s) Glucose [Mass/volume] in Capillary blood by Glucometer 162 mg/dL 70- 140 H [facility] ID Date Data Source [id number] [facility] Interpretation Code Description Data Grace rce(s) Supporting Document(s) Troponin T.cardiac [Mass/volume] in Serum or Plasma <0.01 [facility] ID Date Data Source [id number] 11/22/2019 08:01:43 AM EDT [facility] Value Range Interpretation Code Description Data Grace rce(s) Supporting Document(s) Glucose [Mass/volume] in Capillary blood by Glucometer 132 mg/dL 70- 140 [facility] ID Date Data Source [id number] 11/22/2019 05:32:[facility] Interpretation Code Description Data Grace rce(s) Supporting Document(s) Leukocytes [#/volume] in Blood by Automated count 9.3 10*3/uL 4-10 [facility] Erythrocytes [#/volume] in Blood by Automated count 3.06 10*6/uL 4.1- 5.3 L [facility] Hemoglobin [Mass/volume] in Blood 8.8 g/dL 11.5-15.5 L [facility] Hematocrit [Volume Fraction] of Blood by Automated count 27.3 % 3 6-45 L [facility] Erythrocyte mean corpuscular volume [Entitic volume] by Auto mated count 89.3 fL 80-96 [facility] Erythrocyte mean corpuscular hemoglobin [Entitic mass] by Automated count 28.7 pg 27-33 [facility] Erythrocyte mean corpuscular hemoglobin concentration [Mass/volume] by Automated count 32.1 g/dL 32.0-36.[facility] width [Ratio] by Automated count 17.5 % 11.5-14.5 H [facility] Platelets [#/volume] in Blood by Automated count 358 10*3/uL 150-400 [facility] Differential cell count method - Blood [facility] Neutrophils/100 leukocytes in Blood by Automated count 68 % [facility] Lymphocytes/100 leukocytes in Blood by Automated count 14 % [facility] Monocytes/100 leukocytes in Blood by Automated count 13 % [facility] Eosinophils/100 leukocytes in Blood by Automated count 4 % [facility] Basophils/100 leukocytes in Blood by Automated count 1 % [facility] Neutrophils [#/volume] in Blood by Automated count 6.39 10*3/uL 1.8-7 .0 [facility] Lymphocytes [#/volume] in Blood by Automated count 1.26 10*3/uL 1.2-4 .0 [facility] Monocytes [#/volume] in Blood by Automated count 1.20 10*3/uL 0-0.8 H [facility] Eosinophils [#/volume] in Blood by Automated count 0.32 10*3/uL 0-0.5 [facility] Basophils [#/volume] in Blood by Automated count 0.09 10*3/uL 0-0.2 [facility] Nucleated erythrocytes/100 leukocytes [Ratio] in Blood by Automated count 0 /100{WBCs} 0-0 [facility] ID Date Data Source [id number] 11/22/2019 05:49:27 AM EDT [facility] Name Value Range Interpretation Code Description Data Grace rce(s) Supporting Document(s) Bicarbonate [Moles/volume] in Serum 33 mmol/L 22-29 [facility] Chloride [Moles/volume] in Serum or Plasma 96 mmol/L 98-107 [facility] Creatinine [Mass/volume] in Serum or Plasma 0.37 mg/dL 0.50-0.90 L [facility] Glucose [Mass/volume] in Serum or Plasma 153 mg/dL 70-140 [facility] Potassium [Moles/volume] in Serum or Plasma 4.5 mmol/L 3.4-5.1 [facility] Sodium [Moles/volume] in Serum or Plasma 136 mmol/L 136-145 [facility] Urea nitrogen [Mass/volume] in Serum or Plasma 23 mg/dL 8-23 [facility] Anion gap 3 in Serum or Plasma 7 mmol/L 8-15 L [facility] Osmolality of Serum or Plasma by calculation 289 mosm/kg 275-300 [facility] Creatinine/Urea nitrogen [Mass Ratio] in Serum or Plasma 62 [facility] Calcium [Mass/volume] in Serum or Plasma 8.8 mg/dL 8.8-10.2 [facility] Glomerular filtration rate/1.73 sq M pre dicted among non-blacks [Volume Rate/Area] in Serum or Plasma by Creatinine-based formula (MDRD) >6 0 [facility] Glomerular filtration rate/1.73 sq M pre dicted among blacks [Volume Rate/Area] in Serum or Plasma by Creatinine-based formula (MDRD) >60 [facility] ID Date Data Source [id number] 11/22/2019 05:49:[address] [facility] Name Value Range Interpretation Code Description Data Grace rce(s) Supporting Document(s) Magnesium [Mass/volume] in Serum or Plasma 2.0 mg/dL 1.6-2.4 [facility] ID Date Data Source [id number] 11/22/2019 05:49:[address] [facility] Name Value Range Interpretation Code Description Data Grace rce(s) Supporting Document(s) Phosphate [Mass/volume] in Serum or Plasma 4.0 mg/dL 2.5-4.5 [facility] ID Date Data Source [id number] 11/22/2019 05:26:[address] [facility] Name Value Range Interpretation Code Description Data Grace rce(s) Supporting Document(s) Calcium.ionized [Moles/volume] in Arterial blood 1.17 mmol/L 1.13-1.3 2 [facility] ID Date Data Source [id number] 11/22/2019 05:08:[address] [facility] Name Value Range Interpretation Code Description Data Grace rce(s) Supporting Document(s) Glucose [Mass/volume] in Capillary blood by Glucometer 150 mg/dL 70- 140 H [facility] ID Date Data Source [id number] 11/22/2019 12:25:[address] [facility] Name Value Range Interpretation Code Description Data Grace rce(s) Supporting Document(s) Glucose [Mass/volume] in Capillary blood by Glucometer 134 mg/dL 70- 140 [facility] ID Date Data Source [id number] 11/21/2019 08:45:52 PM [facility] Value Range Interpretation Code Description Data Grace rce(s) Supporting Document(s) Glucose [Mass/volume] in Capillary blood by Glucometer 127 mg/dL 70- 140 [facility] ID Date Data Source [id number] 11/21/2019 04:11:[address] [facility] Name Value Range Interpretation Code Description Data Grace rce(s) Supporting Document(s) Glucose [Mass/volume] in Capillary blood by Glucometer 141 mg/dL 70- 140 H [facility] ID Date Data Source [id number] 11/21/2019 01:35:[address] [facility] XR CHEST FRONTAL ONLY [id number] RESULTI nterpreted by:Ignacio Cantu MDINDICATION: Dyspnea.TECHNIQUE: Portable AP radiograph of the chest, 11/21/2019 12:53 PM, 60 degrees upright.COMPARISON: 11/15/2019 and 11/13/2019.FINDINGS: The feeding tube extends into the stomach and beyond the inferior margin of the image. The patient has spinal fixation hardware, associated with the upper thoracic spine, and this finding does not appear to have changed. A metallic brace projects over the chest as well.The mediastinal contours are stable. It appears that the patient has small pleural effusions bilaterally. Lung volumes are low, and both lung bases are increasingly atelectatic.IMPRESSION: 1. Low lung volumes with worsening atelectasis in both lung bases. Additional disease such as pneumonia may be present as well.This document has been electronically signed by Ignacio Cantu MD on 11/21/2019 12:56 PM Name Value Range Interpretation Code Description Data Grace rce(s) Supporting Document(s) ID Date Data Source [id number] 11/21/2019 12:01:[address] [facility] Name Value Range Interpretation Code Description Data Grace rce(s) Supporting Document(s) Glucose [Mass/volume] in Capillary blood by Glucometer 146 mg/dL 70- 140 H [facility] ID Date Data Source [id number] 11/21/2019 08:34:[address] [facility] Name Value Range Interpretation Code Description Data Grace rce(s) Supporting Document(s) Glucose [Mass/volume] in Capillary blood by Glucometer 149 mg/dL 70- 140 [facility] ID Date Data Source [id number] 11/21/2019 05:09:[address] [facility] Name Value Range Interpretation Code Description Data Grace rce(s) Supporting Document(s) Leukocytes [#/volume] in Blood by Automated count 13.3 10*3/uL 4-10 [facility] Erythrocytes [#/volume] in Blood by Automated count 3.05 10*6/uL 4.1- 5.3 L [facility] Hemoglobin [Mass/volume] in Blood 8.8 g/dL 11.5-15.5 [facility] Hematocrit [Volume Fraction] of Blood by Automated count 27.2 % 3 6-45 L [facility] Erythrocyte mean corpuscular volume [Entitic volume] by Auto mated count 89.3 fL 80-96 [facility] Erythrocyte mean corpuscular hemoglobin [Entitic mass] by Automated count 28.7 pg 27-33 [facility] Erythrocyte mean corpuscular hemoglobin concentration [Mass/volume] by Automated count 32.2 g/dL 32.0-36.[facility] [Ratio] by Automated count 17.3 % 11.5-14.5 [facility] Platelets [#/volume] in Blood by Automated count 377 10*3/uL 150-400 [facility] Differential cell count method - Blood [facility] Neutrophils/100 leukocytes in Blood by Automated count 78 % [facility] Lymphocytes/100 leukocytes in Blood by Automated count 8 % [facility] Monocytes/100 leukocytes in Blood by Automated count 10 % [facility] Eosinophils/100 leukocytes in Blood by Automated count 3 % [facility] Basophils/100 leukocytes in Blood by Automated count 1 % [facility] Neutrophils [#/volume] in Blood by Automated count 10.34 10*3/uL 1.8- 7.0 [facility] Lymphocytes [#/volume] in Blood by Automated count 1.12 10*3/uL 1.2-4 .0 L [facility] Monocytes [#/volume] in Blood by Automated count 1.35 10*3/uL 0-0.8 [facility] Eosinophils [#/volume] in Blood by Automated count 0.40 10*3/uL 0-0.5 [facility] Basophils [#/volume] in Blood by Automated count 0.09 10*3/uL 0-0.2 [facility] Nucleated erythrocytes/100 leukocytes [Ratio] in Blood by Automated count 0 /100{WBCs} 0-0 [facility] ID Date Data Source [id number] 11/21/2019 05:31:27 AM EDT [facility] Name Value Range Interpretation Code Description Data Grace rce(s) Supporting Document(s) Bicarbonate [Moles/volume] in Serum 32 mmol/L 22-29 [facility] Chloride [Moles/volume] in Serum or Plasma 95 mmol/L 98-107 [facility] Creatinine [Mass/volume] in Serum or Plasma 0.38 mg/dL 0.50-0.90 L [facility] Glucose [Mass/volume] in Serum or Plasma 162 mg/dL 70-140 [facility] Potassium [Moles/volume] in Serum or Plasma 4.4 mmol/L 3.4-5.1 [facility] Sodium [Moles/volume] in Serum or Plasma 136 mmol/L 136-145 [facility] Urea nitrogen [Mass/volume] in Serum or Plasma 22 mg/dL 8-23 [facility] Anion gap 3 in Serum or Plasma 9 mmol/L 8-15 [facility] Osmolality of Serum or Plasma by calculation 289 mosm/kg 275-300 [facility] Creatinine/Urea nitrogen [Mass Ratio] in Serum or Plasma 57 [facility] Calcium [Mass/volume] in Serum or Plasma 8.9 mg/dL 8.8-10.2 [facility] Glomerular filtration rate/1.73 sq M pre dicted among non-blacks [Volume Rate/Area] in Serum or Plasma by Creatinine-based formula (MDRD) >6 0 [facility] Glomerular filtration rate/1.73 sq M pre dicted among blacks [Volume Rate/Area] in Serum or Plasma by Creatinine-based formula (MDRD) >60 [facility] ID Date Data Source [id number] 11/21/2019 05:31:27 AM [facility] Value Range Interpretation Code Description Data Grace rce(s) Supporting Document(s) Magnesium [Mass/volume] in Serum or Plasma 2.0 mg/dL 1.6-2.4 [facility] ID Date Data Source [id number] 11/21/2019 05:31:27 AM [facility] Value Range Interpretation Code Description Data Grace rce(s) Supporting Document(s) Phosphate [Mass/volume] in Serum or Plasma 3.5 mg/dL 2.5-4.5 [facility] ID Date Data Source [id number] 11/21/2019 05:15:12 AM [facility] Value Range Interpretation Code Description Data Grace rce(s) Supporting Document(s) Calcium.ionized [Moles/volume] in Arterial blood 1.13 mmol/L 1.13-1.3 2 [facility] ID Date Data Source [id number] 11/21/2019 04:07:03 AM [facility] Value Range Interpretation Code Description Data Grace rce(s) Supporting Document(s) Glucose [Mass/volume] in Capillary blood by Glucometer 135 mg/dL 70- 140 [facility] ID Date Data Source [id number] 11/21/2019 12:16:36 AM [facility] Value Range Interpretation Code Description Data Grace rce(s) Supporting Document(s) Glucose [Mass/volume] in Capillary blood by Glucometer 128 mg/dL 70- 140 [facility] ID Date Data Source [id number] 11/20/2019 08:08:09 PM [facility] Value Range Interpretation Code Description Data Grace rce(s) Supporting Document(s) Glucose [Mass/volume] in Capillary blood by Glucometer 143 mg/dL 70- 140 H [facility] ID Date Data Source [id number] 11/20/2019 04:47:27 PM [facility] Value Range Interpretation Code Description Data Grace rce(s) Supporting Document(s) Glucose [Mass/volume] in Capillary blood by Glucometer 129 mg/dL 70- 140 [facility] ID Date Data Source [id number] 11/20/2019 11:57:[address] [facility] Name Value Range Interpretation Code Description Data Grace rce(s) Supporting Document(s) Glucose [Mass/volume] in Capillary blood by Glucometer 169 mg/dL 70- 140 H [facility] ID Date Data Source [id number] 11/20/2019 10:47:[address] [facility] Name Value Range Interpretation Code Description Data Grace rce(s) Supporting Document(s) Leukocytes [#/volume] in Blood by Automated count 14.2 10*3/uL 4-10 [facility] Erythrocytes [#/volume] in Blood by Automated count 3.16 10*6/uL 4.1- 5.3 L [facility] Hemoglobin [Mass/volume] in Blood 9.3 g/dL 11.5-15.5 [facility] Hematocrit [Volume Fraction] of Blood by Automated count 28.4 % 3 6-45 L [facility] Erythrocyte mean corpuscular volume [Entitic volume] by Auto mated count 89.9 fL 80-96 [facility] Erythrocyte mean corpuscular hemoglobin [Entitic mass] by Automated count 29.3 pg 27-33 [facility] Erythrocyte mean corpuscular hemoglobin concentration [Mass/volume] by Automated count 32.6 g/dL [facility].0-[facility] [Ratio] by Automated count 16.8 % 11.5-14.5 [facility] Platelets [#/volume] in Blood by Automated count 434 10*3/uL 150-400 [facility] Differential cell count method - Blood [facility] Neutrophils/100 leukocytes in Blood by Automated count 80 % [facility] Lymphocytes/100 leukocytes in Blood by Automated count 8 % [facility] Monocytes/100 leukocytes in Blood by Automated count 9 % [facility] Eosinophils/100 leukocytes in Blood by Automated count 2 % [facility] Basophils/100 leukocytes in Blood by Automated count 1 % [facility] Neutrophils [#/volume] in Blood by Automated count 11.35 10*3/uL 1.8- 7.0 [facility] Lymphocytes [#/volume] in Blood by Automated count 1.12 10*3/uL 1.2-4 .0 L [facility] Monocytes [#/volume] in Blood by Automated count 1.23 10*3/uL 0-0.8 [facility] Eosinophils [#/volume] in Blood by Automated count 0.35 10*3/uL 0-0.5 [facility] Basophils [#/volume] in Blood by Automated count 0.12 10*3/uL 0-0.2 [facility] Nucleated erythrocytes/100 leukocytes [Ratio] in Blood by Automated count 0 /100{WBCs} 0-0 [facility] ID Date Data Source [id number] 11/20/2019 08:11:[address] [facility] Name Value Range Interpretation Code Description Data Grace rce(s) Supporting Document(s) Glucose [Mass/volume] in Capillary blood by Glucometer 177 mg/dL 70- 140 H [facility] ID Date Data Source [id number] 11/20/2019 05:02:[address] [facility] Name Value Range Interpretation Code Description Data Grace rce(s) Supporting Document(s) Bicarbonate [Moles/volume] in Serum 34 mmol/L 22-29 [facility] Chloride [Moles/volume] in Serum or Plasma 94 mmol/L 98-107 [facility] Creatinine [Mass/volume] in Serum or Plasma 0.34 mg/dL 0.50-0.90 L [facility] Glucose [Mass/volume] in Serum or Plasma 150 mg/dL 70-140 [facility] Potassium [Moles/volume] in Serum or Plasma 4.3 mmol/L 3.4-5.1 [facility] Sodium [Moles/volume] in Serum or Plasma 134 mmol/L 136-145 L [facility] Urea nitrogen [Mass/volume] in Serum or Plasma 20 mg/dL 8-23 [facility] Anion gap 3 in Serum or Plasma 6 mmol/L 8-15 L [facility] Osmolality of Serum or Plasma by calculation 282 mosm/kg 275-300 [facility] Creatinine/Urea nitrogen [Mass Ratio] in Serum or Plasma 59 [facility] Calcium [Mass/volume] in Serum or Plasma 8.9 mg/dL 8.8-10.2 [facility] Glomerular filtration rate/1.73 sq M pre dicted among non-blacks [Volume Rate/Area] in Serum or Plasma by Creatinine-based formula (MDRD) >6 0 [facility] Glomerular filtration rate/1.73 sq M pre dicted among blacks [Volume Rate/Area] in Serum or Plasma by Creatinine-based formula (MDRD) >60 [facility] ID Date Data Source [id number] 11/20/2019 05:02:30 AM [facility] Value Range Interpretation Code Description Data Grace rce(s) Supporting Document(s) Magnesium [Mass/volume] in Serum or Plasma 2.0 mg/dL 1.6-2.4 [facility] ID Date Data Source [id number] 11/20/2019 05:02:30 AM [facility] Value Range Interpretation Code Description Data Grace rce(s) Supporting Document(s) Phosphate [Mass/volume] in Serum or Plasma 3.5 mg/dL 2.5-4.5 [facility] ID Date Data Source [id number] 11/20/2019 04:40:15 AM [facility] Value Range Interpretation Code Description Data Grace rce(s) Supporting Document(s) Calcium.ionized [Moles/volume] in Arterial blood 1.19 mmol/L 1.13-1.3 2 [facility] ID Date Data Source [id number] 11/20/2019 04:17:17 AM [facility] Value Range Interpretation Code Description Data Grace rce(s) Supporting Document(s) Glucose [Mass/volume] in Capillary blood by Glucometer 133 mg/dL 70- 140 [facility] ID Date Data Source [id number] 11/19/2019 11:38:49 PM [facility] Value Range Interpretation Code Description Data Grace rce(s) Supporting Document(s) Glucose [Mass/volume] in Capillary blood by Glucometer 159 mg/dL 70- 140 H [facility] ID Date Data Source [id number] 11/19/2019 09:54:52 PM [facility] Value Range Interpretation Code Description Data Grace rce(s) Supporting Document(s) Glucose [Mass/volume] in Capillary blood by Glucometer 146 mg/dL 70- 140 H [facility] ID Date Data Source [id number] 11/19/2019 07:52:14 PM [facility] Value Range Interpretation Code Description Data Grace rce(s) Supporting Document(s) Glucose [Mass/volume] in Capillary blood by Glucometer 110 mg/dL 70- 140 [facility] ID Date Data Source [id number] 11/19/2019 03:53:[address] [facility] Name Value Range Interpretation Code Description Data Grace rce(s) Supporting Document(s) Glucose [Mass/volume] in Capillary blood by Glucometer 150 mg/dL 70- 140 [facility] ID Date Data Source [id number] 11/19/2019 12:06:40 PM [facility] Value Range Interpretation Code Description Data Grace rce(s) Supporting Document(s) Glucose [Mass/volume] in Capillary blood by Glucometer 153 mg/dL 70- 140 [facility] ID Date Data Source [id number] 11/19/2019 09:05:38 AM [facility] Value Range Interpretation Code Description Data Grace rce(s) Supporting Document(s) [facility] TBDPLt9eThQTCqDpo5KwZoBwUQSgLB8ffpr3I5D9bEBiG4EscNVoc7dtE7KtR6BnVYIvUUDPAQ9ObEFe jb2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 Date Data Source [id number] 11/07/2019 06:06:[address] [facility] Name Value Range Interpretation Code Description Data Grace rce(s) Supporting Document(s) Leukocytes [#/volume] in Blood by Automated count 15.0 10*3/uL 4-10 H [facility] Erythrocytes [#/volume] in Blood by Automated count 3.03 10*6/uL 4.1- 5.3 L [facility] Hemoglobin [Mass/volume] in Blood 8.7 g/dL 11.5-15.5 L [facility] Hematocrit [Volume Fraction] of Blood by Automated count 26.0 % 3 6-45 L [facility] Erythrocyte mean corpuscular volume [Entitic volume] by Auto mated count 85.7 fL 80-96 [facility] Erythrocyte mean corpuscular hemoglobin [Entitic mass] by Automated count 28.8 pg 27-33 [facility] Erythrocyte mean corpuscular hemoglobin concentration [Mass/volume] by Automated count 33.6 g/dL 32.0-36[facility] width [Ratio] by Automated count 15.3 % 11.5-14.5 H [facility] Platelets [#/volume] in Blood by Automated count 346 10*3/uL 150-400 [facility] Differential cell count method - Blood [facility] Neutrophils/100 leukocytes in Blood by Automated count 78 % [facility] Lymphocytes/100 leukocytes in Blood by Automated count 11 % [facility] Monocytes/100 leukocytes in Blood by Automated count 9 % [facility] Eosinophils/100 leukocytes in Blood by Automated count 2 % [facility] Neutrophils [#/volume] in Blood by Automated count 11.61 10*3/uL 1.8- 7.0 H [facility] Lymphocytes [#/volume] in Blood by Automated count 1.70 10*3/uL 1.2-4 .0 [facility] Monocytes [#/volume] in Blood by Automated count 1.41 10*3/uL 0-0.8 H [facility] Eosinophils [#/volume] in Blood by Automated count 0.29 10*3/uL 0-0.5 [facility] Nucleated erythrocytes/100 leukocytes [Ratio] in Blood by Automated count 1 /100{WBCs} 0-0 H [facility] Anisocytosis [Presence] in Blood by Light microscopy [facility] Poikilocytosis [Presence] in Blood by Light microscopy [facility] ID Date Data Source [id number] 11/07/2019 05:29:59 AM [facility] Value Range Interpretation Code Description Data Grace rce(s) Supporting Document(s) Glucose [Mass/volume] in Capillary blood by Glucometer 198 mg/dL 70- 140 H [facility] ID Date Data Source [id number] 11/07/2019 02:17:31 AM [facility] Value Range Interpretation Code Description Data Grace rce(s) Supporting Document(s) Potassium [Moles/volume] in Serum or Plasma 3.6 mmol/L 3.4-5.1 [facility] ID Date Data Source [id number] 11/07/2019 01:21:01 AM [facility] Value Range Interpretation Code Description Data Grace rce(s) Supporting Document(s) Glucose [Mass/volume] in Capillary blood by Glucometer 186 mg/dL 70- 140 H [facility] ID Date Data Source [id number] 11/06/2019 07:52:58 PM [facility] Value Range Interpretation Code Description Data Grace rce(s) Supporting Document(s) Glucose [Mass/volume] in Capillary blood by Glucometer 154 mg/dL 70- 140 H [facility] ID Date Data Source [id number] 11/06/2019 04:14:25 PM [facility] Value Range Interpretation Code Description Data Grace rce(s) Supporting Document(s) Glucose [Mass/volume] in Capillary blood by Glucometer 169 mg/dL 70- 140 [facility] ID Date Data Source [id number] 11/06/2019 02:47:23 PM [facility] Value Range Interpretation Code Description Data Grace rce(s) Supporting Document(s) Potassium [Moles/volume] in Serum or Plasma 3.6 mmol/L 3.4-5.1 [facility] ID Date Data Source [id number] 11/06/2019 11:28:56 AM EDT [facility] Name Value Range Interpretation Code Description Data Grace rce(s) Supporting Document(s) Glucose [Mass/volume] in Capillary blood by Glucometer 181 mg/dL 70- 140 H [facility] ID Date Data Source [id number] 11/06/2019 09:48:39 AM EDT [facility] Name Value Range Interpretation Code Description Data Grace rce(s) Supporting Document(s) Consultation 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 maker [file] ICAgICAgICAgICAgICAgICAgICAgICAgICAgICAgIC ByKEVuUTMyNTShOTIvELBmUZDdZMZxXSUlMRMkTBMgJTOvCWTpZFJnPCKbXA6QCJDyTNXuHYFwVZMzDU AgICAgICAgICAgICAgICAgICAgICAgICAgICAgICAgICAgICAgICAgICAgICAgICAgICAgICAgICAgIC TxBNUeDMVyJODeLOUqZJDiOWRqBEBeXNMkQU9REICb ICAgICAgICAgICAgICAgICAgICAgICAgICAgICAgICAgICAgICAgICAgICAgICAgICAgICAgICAgICAg JKKlBRHbKBQiMYSqOTRtHGLyQMGzYHOpNRLgNYSnZGUvOESoSR7WSEYsRAQdOTCxGPDhVZPcKROsCFMf ICAgICAgICAgICAgICAgICAgICAgICAgICAgICAgIC YwDVGhYKUwDWSuIJKnOPTbNUBvLJFlNNSpKHXzKXOdZVMvFTSmUIBvTOAmJAHkBY8MMTEtVAXpYLCeTR AgICAgICAgICAgICAgICAgICAgICAgICAgICAgICAgICAgICAgICAgICAgICAgICAgICAgICAgICAgIC AqWPQbIVCaIHBwNSZtCWVvIOTiRHDyMLNgBFHhXW2F ICAgICAgICAgICAgICAgICAgICAgICAgICAgICAgICAgICAgICAgICAgICAgICAgICAgICAgICAgICAg NYNtFSSlWTPfFMRaQYTxNXNfNNKsQULkPNQwMISxXLZeQBIpQZTtPV4XUAVqQTTlVVEdQTGiWVWpUAGv ICAgICAgICAgICAgICAgICAgICAgICAgICAgICAgIC ApJYWjANQxFCDpYBEkZCAzSFWeLDDkHMAgUINjNWFiJORyRHEzKDCkMLPuFTCnAETqAC5LYTYxWCRjKL AgICAgICAgICAgICAgICAgICAgICAgICAgICAgICAgICAgICAgICAgICAgICAgICAgICAgICAgICAgIC AgICAgICAgICAgICAgICAgICAgICAgICAgICAgICAg IM6ZAARfFDYbVJCkCBMpKAAlSRLdEWHePHWwZJRkCVMjUAUcJOQgGGUaIGEwVAGuNEErNSVwJNJbLQGe IHEqXDTlCWLqXPPcIQUzLWPgNIJpDDKyKSHjMMOsJPLaHLQrTBHcQHCbNS5KRSFjZAElADFqVQGrLUAk ICAgICAgICAgICAgICAgICAgICAgICAgICAgICAgIC PzGYKdWAOyCIHaIVCbCGXjWOJtYTFlCSIwVHPxOUUyXDDmBPGcHYInBAAqXJFoVVOpPOObQW1YOD69rN Lzw9H9BKFzBX3ogzi/Qf8TWVvjeaOkvCGgPA5VVgGoDF3pnw8OGjAdXD9wen3GCFcUQdVnO1G6wAJxYZ LsXZCZYcOtX56fQUqfQt25GZisOCUxZdYpOSf2Hb7F PsQdD3ohNSSiHrZ5LBSqCxZ1FGCpDrM5SAZcNvCuEEfdQL4Qp0QmuPLmNNa+Co7XTX7mc5NaCHqbMRWg ET6gmd2UJCvZIvVbF0OdnmY1KYB6XHQpNk5KMIWkNYZxfDYtVmBpKHXKWoMkT2RebM99BSRTSh7+DQpl jyNcOzrBXyX8LPQpl0RzVBo4IV4NTDYfMXj5xCDtF7 6sb0ImwNGlVttdKDN9p9XkgISZDScpmdllAFHdCF0FDRB0PNCdMt3aQMLtMQE8JbT4WOYKMQ7TVTVfEV ZcoYYqOLGuTUGNHY6YCVojXEZ0OGKbdlFqeVFaCEljWP9DBJAlecRaMtFeZWTUIQq+Ar7OSP1qi6YoLE khBeNmDB8nkn8XLPuNDdMeK7T2mPCvA0M0VDbsKb6M XOUmPFJbFiJkXAEBTKelZV0PPH9zndP2FF8ShKCoULNgYQOjdXUhYAp1L14ioZAmDKvsUG1IWXS+Alise+ Xj8GOKYuASCaLLWxGsKxDPKZZrEnR0BvA0GZk9VuL7BxMZ90bZgeyjAjKPgmBP4XGI9oBBXeKDJNEJ1C fWDujK2zfaIsYJFcEVCZAhQpY45jyQQmWPJoMTC8YS HzGz9MVNCnV8HkdnWtySfpulFmWBClAFGTRS9OFTumeaNrhNZwkHvtOL60bKstAL0RUd8NAuOeZV9zec 7NmDGoXe7OVOTjDK2ZPIItZRCkZCTaLIU9MGBdRvSsVPekUQGbBBTiJVJ4HPQdIHWrVV7HNbIsPZBqAh X9DmUcDJRiJVZzbe9IRZHcXPEeIkBrMSMzVAKgAUJf QWkvYFTlHIPkSBL9NWXqMJGfSO5CVuXeEYMgSSP4HbphQVGjFMEyil5ARGRbWNUlAbkdGuWiEMJyCJYl PVivHBLxVEE6IYQdLNHeSOKsPA9THaZbHSKvSPJ4DJJcPYMeBPMnip2PGBTsXNBcBOPpYBBrYQHuNKLn EDaaNPOuAIZ8ClT7BYMiXIHpVU2HBlXxGOAuFFZ9ME LaUEAlQKEius2JCSVrNZXmHSv2OsQgACQnEURtEUfkUPSfYJFyWXs8WERnHFYcLZ9TKzQpKTHfFBVvRw WvVEIlFQLzvq7TIMRzDFAeSvSvOoEcTLAuKTNrSGobVORpNYXmOOC3EOKrIBJyXK2THxAzBDCiODFmDO IdGEOhENWjwi5ABMZwCXWyTnV9KAEwOEKfFQZvEJvm BCXqTINzNoJ9MUZgKMHjFX7STwCtAFRlTTY6ZCFcMZKeMVEbnq4EPWXkJQCfRPIaSzRmGVCtAQFgNQht KOVpBZZ1BdY5FKGgDVAhLK3FMuTuBJClUkF6ZQWiKKCmWQPahk3BPPImMIHvHTZ1JZZdFXUiEGYdHTxf YKMkWFJ8TlU8CYZpIMHnEE0THfLuRTKxTpM9JCVkXS JsCRKxqk3CHLGpQHAyWwzvSBJuGJNwAEAvRFo4dbMngWAqNBm0CZ9VV8BfiqJmNfpOPl0Uv222YUC9YM ThBd3DT6eyFw4mOWCvLNWJOd9GCYk6RBC0VNAhRfzlTsYiU5PsI0P4GeAuXpj6KGOuEtUgDqh+IDw5MT izPbAzRND8BhB9YOVpMGOvLYK0SDMdKjO8OIH6Bs2i XSANCj4+JMuegFKkoXprBPIVGpE4HDx5OWbbIFRNQl3H ID Date Data Source [id number] 11/06/2019 08:26:[address] [facility] Name Value Range Interpretation Code Description Data Grace rce(s) Supporting Document(s) Glucose [Mass/volume] in Capillary blood by Glucometer 165 mg/dL 70- 140 H [facility] ID Date Data Source [id number] 11/06/2019 08:09:[address] [facility] Name Value Range Interpretation Code Description Data Grace rce(s) Supporting Document(s) Bicarbonate [Moles/volume] in Serum 28 mmol/L 22-29 [facility] Chloride [Moles/volume] in Serum or Plasma 102 mmol/L 98-107 [facility] Creatinine [Mass/volume] in Serum or Plasma 0.59 mg/dL 0.50-0.90 [facility] Glucose [Mass/volume] in Serum or Plasma 214 mg/dL 70-140 [facility] Potassium [Moles/volume] in Serum or Plasma 3.3 mmol/L 3.4-5.1 L [facility] Sodium [Moles/volume] in Serum or Plasma 143 mmol/L 136-145 [facility] Urea nitrogen [Mass/volume] in Serum or Plasma 23 mg/dL 8-23 [facility] Anion gap 3 in Serum or Plasma 13 mmol/L 8-15 [facility] Osmolality of Serum or Plasma by calculation 306 mosm/kg 275-300 H [facility] Creatinine/Urea nitrogen [Mass Ratio] in Serum or Plasma 39 [facility] Calcium [Mass/volume] in Serum or Plasma 7.7 mg/dL 8.8-10.2 L [facility] Glomerular filtration rate/1.73 sq M pre dicted among non-blacks [Volume Rate/Area] in Serum or Plasma by Creatinine-based formula (MDRD) >6 0 [facility] Glomerular filtration rate/1.73 sq M pre dicted among blacks [Volume Rate/Area] in Serum or Plasma by Creatinine-based formula (MDRD) >60 [facility] ID Date Data Source [id number] 11/06/2019 04:34:[address] [facility] Name Value Range Interpretation Code Description Data Grace rce(s) Supporting Document(s) Calcium.ionized [Moles/volume] in Arterial blood 1.04 mmol/L 1.13-1.3 2 [facility] ID Date Data Source [id number] 11/06/2019 04:34:[address] [facility] Name Value Range Interpretation Code Description Data Grace rce(s) Supporting Document(s) Leukocytes [#/volume] in Blood by Automated count 14.0 10*3/uL 4-10 H [facility] Erythrocytes [#/volume] in Blood by Automated count 2.83 10*6/uL 4.1- 5.3 L [facility] Hemoglobin [Mass/volume] in Blood 8.2 g/dL 11.5-15.5 [facility] Hematocrit [Volume Fraction] of Blood by Automated count 24.1 % 3 6-45 L [facility] Erythrocyte mean corpuscular volume [Entitic volume] by Auto mated count 85.3 fL 80-96 [facility] Erythrocyte mean corpuscular hemoglobin [Entitic mass] by Automated count 28.9 pg 27-33 [facility] Erythrocyte mean corpuscular hemoglobin concentration [Mass/volume] by Automated count 33.9 g/dL 32.0-36[facility] [Ratio] by Automated count 15.3 % 11.5-14.5 H [facility] Platelets [#/volume] in Blood by Automated count 271 10*3/uL 150-400 [facility] Differential cell count method - Blood [facility] Neutrophils/100 leukocytes in Blood by Automated count 78 % [facility] Lymphocytes/100 leukocytes in Blood by Automated count 9 % [facility] Monocytes/100 leukocytes in Blood by Automated count 11 % [facility] Eosinophils/100 leukocytes in Blood by Automated count 2 % [facility] Basophils/100 leukocytes in Blood by Automated count 0 % [facility] Neutrophils [#/volume] in Blood by Automated count 11.02 10*3/uL 1.8- 7.0 H [facility] Lymphocytes [#/volume] in Blood by Automated count 1.21 10*3/uL 1.2-4 .0 [facility] Monocytes [#/volume] in Blood by Automated count 1.53 10*3/uL 0-0.8 H [facility] Eosinophils [#/volume] in Blood by Automated count 0.20 10*3/uL 0-0.5 [facility] Basophils [#/volume] in Blood by Automated count 0.05 10*3/uL 0-0.2 [facility] Nucleated erythrocytes/100 leukocytes [Ratio] in Blood by Automated count 0 /100{WBCs} 0-0 [facility] ID Date Data Source [id number] 11/06/2019 04:54:34 AM T [facility] Name Value Range Interpretation Code Description Data Grace rce(s) Supporting Document(s) Bicarbonate [Moles/volume] in Serum 30 mmol/L 22-29 [facility] Chloride [Moles/volume] in Serum or Plasma 100 mmol/L 98-107 [facility] Creatinine [Mass/volume] in Serum or Plasma 0.60 mg/dL 0.50-0.90 [facility] Glucose [Mass/volume] in Serum or Plasma 245 mg/dL 70-140 [facility] Potassium [Moles/volume] in Serum or Plasma 3.0 mmol/L 3.4-5.1 L [facility] Sodium [Moles/volume] in Serum or Plasma 140 mmol/L 136-145 [facility] Urea nitrogen [Mass/volume] in Serum or Plasma 23 mg/dL 8-23 [facility] Anion gap 3 in Serum or Plasma 11 mmol/L 8-15 [facility] Osmolality of Serum or Plasma by calculation 302 mosm/kg 275-300 [facility] Creatinine/Urea nitrogen [Mass Ratio] in Serum or Plasma 39 [facility] Calcium [Mass/volume] in Serum or Plasma 7.9 mg/dL 8.8-10.2 L [facility] Glomerular filtration rate/1.73 sq M pre dicted among non-blacks [Volume Rate/Area] in Serum or Plasma by Creatinine-based formula (MDRD) >6 0 [facility] Glomerular filtration rate/1.73 sq M pre dicted among blacks [Volume Rate/Area] in Serum or Plasma by Creatinine-based formula (MDRD) >60 [facility] ID Date Data Source [id number] 11/06/2019 04:54:[address] [facility] Name Value Range Interpretation Code Description Data Grace rce(s) Supporting Document(s) Magnesium [Mass/volume] in Serum or Plasma 1.9 mg/dL 1.6-2.4 [facility] ID Date Data Source [id number] 11/06/2019 04:54:34 AM [facility] Value Range Interpretation Code Description Data Grace rce(s) Supporting Document(s) Phosphate [Mass/volume] in Serum or Plasma 2.5 mg/dL 2.5-4.5 [facility] ID Date Data Source [id number] 11/06/2019 05:01:11 AM [facility] Value Range Interpretation Code Description Data Grace rce(s) Supporting Document(s) Glucose [Mass/volume] in Capillary blood by Glucometer 214 mg/dL 70- 140 [facility] ID Date Data Source [id number] 11/06/2019 12:45:00 AM [facility] Value Range Interpretation Code Description Data Grace rce(s) Supporting Document(s) Bicarbonate [Moles/volume] in Serum 29 mmol/L 22-29 [facility] Chloride [Moles/volume] in Serum or Plasma 104 mmol/L 98-107 [facility] Creatinine [Mass/volume] in Serum or Plasma 0.60 mg/dL 0.50-0.90 [facility] Glucose [Mass/volume] in Serum or Plasma 203 mg/dL 70-140 [facility] Potassium [Moles/volume] in Serum or Plasma 4.0 mmol/L 3.4-5.1 [facility] Sodium [Moles/volume] in Serum or Plasma 144 mmol/L 136-145 [facility] Urea nitrogen [Mass/volume] in Serum or Plasma 23 mg/dL 8-23 [facility] Anion gap 3 in Serum or Plasma 11 mmol/L 8-15 [facility] Osmolality of Serum or Plasma by calculation 307 mosm/kg 275-300 [facility] Creatinine/Urea nitrogen [Mass Ratio] in Serum or Plasma 38 [facility] Calcium [Mass/volume] in Serum or Plasma 7.5 mg/dL 8.8-10.2 L [facility] Glomerular filtration rate/1.73 sq M pre dicted among non-blacks [Volume Rate/Area] in Serum or Plasma by Creatinine-based formula (MDRD) >6 0 [facility] Glomerular filtration rate/1.73 sq M pre dicted among blacks [Volume Rate/Area] in Serum or Plasma by Creatinine-based formula (MDRD) >60 [facility] ID Date Data Source [id number] 11/06/2019 12:11:[address] [facility] Name Value Range Interpretation Code Description Data Grace rce(s) Supporting Document(s) Glucose [Mass/volume] in Capillary blood by Glucometer 181 mg/dL 70- 140 H [facility] ID Date Data Source [id number] 11/05/2019 08:28:54 PM [facility] Value Range Interpretation Code Description Data Grace rce(s) Supporting Document(s) Glucose [Mass/volume] in Capillary blood by Glucometer 169 mg/dL 70- 140 H [facility] ID Date Data Source [id number] 11/05/2019 07:23:12 PM [facility] Value Range Interpretation Code Description Data Grace rce(s) Supporting Document(s) Bicarbonate [Moles/volume] in Serum 26 mmol/L 22-29 [facility] Chloride [Moles/volume] in Serum or Plasma 101 mmol/L 98-107 [facility] Creatinine [Mass/volume] in Serum or Plasma 0.64 mg/dL 0.50-0.90 [facility] Glucose [Mass/volume] in Serum or Plasma 236 mg/dL 70-140 H [facility] Potassium [Moles/volume] in Serum or Plasma 3.2 mmol/L 3.4-5.1 L [facility] Sodium [Moles/volume] in Serum or Plasma 139 mmol/L 136-145 [facility] Urea nitrogen [Mass/volume] in Serum or Plasma 25 mg/dL 8-23 H [facility] Anion gap 3 in Serum or Plasma 12 mmol/L 8-15 [facility] Osmolality of Serum or Plasma by calculation 299 mosm/kg 275-300 [facility] Creatinine/Urea nitrogen [Mass Ratio] in Serum or Plasma 38 [facility] Calcium [Mass/volume] in Serum or Plasma 7.9 mg/dL 8.8-10.2 L [facility] Glomerular filtration rate/1.73 sq M pre dicted among non-blacks [Volume Rate/Area] in Serum or Plasma by Creatinine-based formula (MDRD) >6 0 [facility] Glomerular filtration rate/1.73 sq M pre dicted among blacks [Volume Rate/Area] in Serum or Plasma by Creatinine-based formula (MDRD) >60 [facility] ID Date Data Source [id number] 11/05/2019 04:19:[address] [facility] Name Value Range Interpretation Code Description Data Graec rce(s) Supporting Document(s) Glucose [Mass/volume] in Capillary blood by Glucometer 187 mg/dL 70- 140 H [facility] ID Date Data Source [id number] 11/05/2019 12:40:[address] [facility] Name Value Range Interpretation Code Description Data Grace rce(s) Supporting Document(s) History and Physical [facility] [id number]3yC4oSTM9PXtJEuIzBzPhWeY5 [facility] [file] AgICAgICAgICAgICAgICAgICAgICAgICAgICAgICAgICAgICAgICAgICAgICAgICAgICAgICAgICAgIC AgICAgICAgICAgICAgICAgICANCiAgICAgICAgICAgICAgICAgICAgICAgICAgICAgICAgICAgICAgIC AgICAgICAgICAgICAgICAgICAgICAgICAgICAgICAg ICAgICAgICAgICAgICAgICAgICAgICAgICAgICANCiAgICAgICAgICAgICAgICAgICAgICAgICAgICAg ICAgICAgICAgICAgICAgICAgICAgICAgICAgICAgICAgICAgICAgICAgICAgICAgICAgICAgICAgICAg ICAgICAgICAgICANCiAgICAgICAgICAgICAgICAgIC AgICAgICAgICAgICAgICAgICAgICAgICAgICAgICAgICAgICAgICAgICAgICAgICAgICAgICAgICAgIC AgICAgICAgICAgICAgICAgICAgICANCiAgICAgICAgICAgICAgICAgICAgICAgICAgICAgICAgICAgIC AgICAgICAgICAgICAgICAgICAgICAgICAgICAgICAg ICAgICAgICAgICAgICAgICAgICAgICAgICAgICAgICANCiAgICAgICAgICAgICAgICAgICAgICAgICAg ICAgICAgICAgICAgICAgICAgICAgICAgICAgICAgICAgICAgICAgICAgICAgICAgICAgICAgICAgICAg ICAgICAgICAgICAgICANCiAgICAgICAgICAgICAgIC AgICAgICAgICAgICAgICAgICAgICAgICAgICAgICAgICAgICAgICAgICAgICAgICAgICAgICAgICAgIC AgICAgICAgICAgICAgICAgICAgICAgICANCiAgICAgICAgICAgICAgICAgICAgICAgICAgICAgICAgIC AgICAgICAgICAgICAgICAgICAgICAgICAgICAgICAg ICAgICAgICAgICAgICAgICAgICAgICAgICAgICAgICAgICANCiAgICAgICAgICAgICAgICAgICAgICAg ICAgICAgICAgICAgICAgICAgICAgICAgICAgICAgICAgICAgICAgICAgICAgICAgICAgICAgICAgICAg ICAgICAgICAgICAgICAgICANCiAgICAgICAgICAgIC AgICAgICAgICAgICAgICAgICAgICAgICAgICAgICAgICAgICAgICAgICAgICAgICAgICAgICAgICAgIC AgICAgICAgICAgICAgICAgICAgICAgICAgICANCjw/sRZwR8qnhNOejgH0C1oeVs6ZPi0UMT4iw3RjHP YkBFsqpvQzNakIVgBmIPIjDpoEXfy0CDlnAB9UeECd T4FxW9FfSMyxDG2PCRFxPHNmuNWnQXHnDTAmEgX1PLFoWKezXR7VpFDuLCaqKMLmKHTlYkYdUWXiANRw HBReBLAoQGIMGUStWYMxIzTcJDAaHBMiWTbqXSTXSHG4EKVfSvAlVVXlCSAiHjFnWXFMDTU2WBHaMzKy GcDjXPLhND4RINCzU512vcCxHRDTSq5+DQplbmRvYm cFLtD1YQXdm2BgRBo2WI9NOLLcVligs2SkILqwKOGZVZbuQZ3TOMW7ZRU7PZJaDq5SDIXtG303wdDpRS 3IDh1MOiWcCG9mxy0JLWcsMRHjLywNOzm8LNmfSH7BnDJgCZmUQqVgKiuvL2MoefDdBGMtO6AbfRUrWF 3OCQQ6SYIuRp2dDGEoVDF5TnX9EJLBWS2LRJAfZULr rTSjVGYuYTSJDP0GNQhbIRB9CXNswpAcrEIwUBkbVT6TLCPswxMmTRisRXJXABi+Xr5YOY8op8DxWQr8 OLQxUV4kga0QTSlUQiMmU3E7wWTkP2Q5VXtmYg9GATSzHGQtQQBtZFUITDweOI7BEJ1bjqD6DO6UsGTm WJDtQRVllYLkBGl7U21yhHLcDAsiTH3OLTD+Alise+Pg 7QLDGiTDPjNZJiWvNxGEDOKnJyX0BbZ5HRu0BxF0AnMC94xPsmybXcGRfwWS1FGI5rXPZtOSQYTN5NqG WcxI3obgS4ArBqPQGVQaSzV65riWXjHALjYDH1QBNfNs9LDLJlL4OzqjVaeCopipDwLZSqLHBIHK7STV uyupKeuEBkeMljPF53uDiiZC9ZAk0VYjXdNX8qxt5A wHRzMv0VMXP9SV4MBTGmEDYoZQGpBVJ9VWTlEoEbYAmxXUNyDKFqKBG7PBEzLJBnIH1XQaHwFOXuTWvw ZlLfHWKaRGUagm1JXEDxMGZ1GTz3LIFpAIQlNKFzVXolDOYgVXAqGNS9DJYaIUMoRD3YDcLyUIYvFAGu WEejYJOeEPWfcy4NGSJeYFPnEZV7QrVgCJAaRDKcNX jkPLVfYWO4XXMeDJZnKWNnDB4LQdQiAKOhCXnaEhBbCLKpDYDvmn9STHApPFSlIIi2FlUuOSPhSJAmVC lgHDObTEL4PPs7AUHmOBQoTM4JJsRjOBXpJBRnEIYiJZPuRFPfrb4ASMGzVEFdJuV1OvZbYAIuSJLgIC fjBLNoWEX9OuT8TAFoKOAhAT9ABtYoOOVyLQN8SWIj PUHbKOPwyi5LPCReAPIsLha1EsBeREMuVGTjLKaeWATkYFI8JLm2DJAkIDQeKR8UDxWdORQbHpI9PSse ESAgKWKoed2MRFSfXZZmWkYxDSUtDULvURAyRBtmOQPgKFC5ICJ5CYZfOUDrJT1KNnKlPMAbAlisAjNr DORoKLVuid6ZDYCeDTDgMbN0ASPwKCQgLLSzLAqrVD ClQTSvEoO4SAIkOWPaHT8DYlPvLZKcVbV1ULKoLEBqRHQspk3KSZXdSTAyIMstGJBtUOGtMEOkRClqRM BjYSG1PBZ3WVYpXNWgSZ1UIlSbNBGdTqypMdYzSGBxQATdiu9JFEUsNRP0HBG0WSZxVSHlQYWlSWdsMU OjISNcBLC0ZRJgHJHmIO9DToQhJKAsKWY4TlMxKDFj DXSfog2FUDYzMEN6BSysUnPxLSDxCUAlVJqrVZOzGLWmYLS9OHQmMMRmIW1IZgGoXWXwYIN7AaOdDUAc RHFnwn2WIQWnRUL0DvP9TdUvUAYrAYYyAAieWCHjJRYpBmR0WKSjEQTwWC5HUfEyXMAgYCIeYDQtHLBc VGOqxy3MLIPfUKM5GWKcENWkSNVsFXBzLPdfRITqTB R6RQb1QCNqXLJrBQ9RXaAxUNJtVIC0FfvpKJPwHOPyvr8PHAAhEIV2QiL2QvPdOYQfBMHmPXtaHFYwAS E7ALR0WQYkMSZuMM1OZtOyEUQgXHG6ULSeREVcWJGoit2QGOCrKUQ0Mmj2JVJyTUDuKJTfQAsrTTZtUY N7YPK6ZAIeDNAsOM1WJoOwFXZfRCjwFhInQUTiSLTw ar2CPYRyUIN4ONAgVINkGWRuEKRwPMewXDBoVSD9DkO5RUOgSBTbFZ7OCfUnBUSiPhBsHGkcDKEcNFEe um9EFZZmZEQ6GYDgPFEbNLVjSDWfDRonETTtHJElCwJ7MUDsNKKeDO3RXwZlQTmvMIVKHeo7HWumV5i5 EBK3FC5LV2Xdv2WfFXieTICMQKhtKP5sfwVvYHMpMg 8QB0rRXqldQLU7Oub3RlSrJNY2ORYyHTJaREOiNMDaHKKvLPNkGl4dJRYtZgtwChkbTIJgKLL2RRA4EK ZaMGG6XFJtJzH9FCQdPpZiBK7VBg6TWaB3ZIY3rXXzPe2BDlC6JYSLCqGtSZ9YGRw= ID Date Data Source [id number] 11/05/2019 01:55:17 PM EDT [facility] Name Value Range Interpretation Code Description Data Grace rce(s) Supporting Document(s) Bicarbonate [Moles/volume] in Serum 27 mmol/L 22-29 [facility] Chloride [Moles/volume] in Serum or Plasma 103 mmol/L 98-107 [facility] Creatinine [Mass/volume] in Serum or Plasma 0.65 mg/dL 0.50-0.90 [facility] Glucose [Mass/volume] in Serum or Plasma 218 mg/dL 70-140 H [facility] Potassium [Moles/volume] in Serum or Plasma 3.5 mmol/L 3.4-5.1 [facility] Sodium [Moles/volume] in Serum or Plasma 140 mmol/L 136-145 [facility] Urea nitrogen [Mass/volume] in Serum or Plasma 24 mg/dL 8-23 H [facility] Anion gap 3 in Serum or Plasma 10 mmol/L 8-15 [facility] Osmolality of Serum or Plasma by calculation 301 mosm/kg 275-300 H [facility] Creatinine/Urea nitrogen [Mass Ratio] in Serum or Plasma 37 [facility] Calcium [Mass/volume] in Serum or Plasma 7.6 mg/dL 8.8-10.2 L [facility] Glomerular filtration rate/1.73 sq M pre dicted among non-blacks [Volume Rate/Area] in Serum or Plasma by Creatinine-based formula (MDRD) >6 0 [facility] Glomerular filtration rate/1.73 sq M pre dicted among blacks [Volume Rate/Area] in Serum or Plasma by Creatinine-based formula (MDRD) >60 [facility] ID Date Data Source [id number] 11/05/2019 04:08:36 PM EDT [facility] Name Value Range Interpretation Code Description Data Grace rce(s) Supporting Document(s) Glucose [Mass/volume] in Capillary blood by Glucometer 157 mg/dL 70- 140 H [facility] ID Date Data Source [id number] 11/07/2019 07:33:28 AM [facility] Value Range Interpretation Code Description Data Grace rce(s) Supporting Document(s) ABO and Rh group [Type] in Blood [facility] Blood group antibody screen [Presence] in Serum or Plasma [facility] 11/08/2019,0000Performed at [address] [place] [address] BY TECH [id number] [facility] ID Date Data Source [id number] 11/05[facility]2019 08[facility]34[facility] Interpretation Code Description Data Grace rce(s) Supporting Document(s) Glucose [Mass/volume] in Capillary blood by Glucometer 143 mg/dL 70- 140 H [facility] ID Date Data Source [id number] 11/05/2019 07:28:55 AM [facility] Value Range Interpretation Code Description Data Grace rce(s) Supporting Document(s) Bicarbonate [Moles/volume] in Serum 27 mmol/L 22-29 [facility] Chloride [Moles/volume] in Serum or Plasma 105 mmol/L 98-107 [facility] Creatinine [Mass/volume] in Serum or Plasma 0.59 mg/dL 0.50-0.90 [facility] Glucose [Mass/volume] in Serum or Plasma 201 mg/dL 70-140 H [facility] Potassium [Moles/volume] in Serum or Plasma 3.7 mmol/L 3.4-5.1 [facility] Sodium [Moles/volume] in Serum or Plasma 141 mmol/L 136-145 [facility] Urea nitrogen [Mass/volume] in Serum or Plasma 24 mg/dL 8-23 H [facility] Anion gap 3 in Serum or Plasma 9 mmol/L 8-15 [facility] Osmolality of Serum or Plasma by calculation 302 mosm/kg 275-300 H [facility] Creatinine/Urea nitrogen [Mass Ratio] in Serum or Plasma 41 [facility] Calcium [Mass/volume] in Serum or Plasma 7.5 mg/dL 8.8-10.2 L [facility] Glomerular filtration rate/1.73 sq M pre dicted among non-blacks [Volume Rate/Area] in Serum or Plasma by Creatinine-based formula (MDRD) >6 0 [facility] Glomerular filtration rate/1.73 sq M pre dicted among blacks [Volume Rate/Area] in Serum or Plasma by Creatinine-based formula (MDRD) >60 [facility] ID Date Data Source [id number] 11/05/2019 04:51:38 AM EDT [facility] Name Value Range Interpretation Code Description Data Grace rce(s) Supporting Document(s) Leukocytes [#/volume] in Blood by Automated count 12.1 10*3/uL 4-10 H [facility] Erythrocytes [#/volume] in Blood by Automated count 2.36 10*6/uL 4.1- 5.3 L [facility] Hemoglobin [Mass/volume] in Blood 6.8 g/dL 11.5-15.5 [facility] Hematocrit [Volume Fraction] of Blood by Automated count 19.8 % 3 6-45 [facility] No significant change since last result called Erythrocyte mean corpuscular volume [Entitic volume] by Auto mated count 84.0 fL 80-96 [facility] Erythrocyte mean corpuscular hemoglobin [Entitic mass] by Automated count 28.8 pg 27-33 [facility] Erythrocyte mean corpuscular hemoglobin concentration [Mass/volume] by Automated [facility] 34.3 g[facility] width [Ratio] by Automated count 15.5 % 11.5-14.5 H [facility] Platelets [#/volume] in Blood by Automated count 206 10*3/uL 150-400 [facility] Differential cell count method - Blood [facility] Neutrophils/100 leukocytes in Blood by Automated count 80 % [facility] Lymphocytes/100 leukocytes in Blood by Automated count 8 % [facility] Monocytes/100 leukocytes in Blood by Automated count 11 % [facility] Eosinophils/100 leukocytes in Blood by Automated count 1 % [facility] Basophils/100 leukocytes in Blood by Automated count 0 % [facility] Neutrophils [#/volume] in Blood by Automated count 9.67 10*3/uL 1.8-7 .0 H [facility] Lymphocytes [#/volume] in Blood by Automated count 0.99 10*3/uL 1.2-4 .0 L [facility] Monocytes [#/volume] in Blood by Automated count 1.28 10*3/uL 0-0.8 H [facility] Eosinophils [#/volume] in Blood by Automated count 0.10 10*3/uL 0-0.5 [facility] Basophils [#/volume] in Blood by Automated count 0.05 10*3/uL 0-0.2 [facility] Nucleated erythrocytes/100 leukocytes [Ratio] in Blood by Automated count 0 /100{WBCs} 0-0 [facility] ID Date Data Source [id number] 11/05/2019 05:10:57 AM EDT [facility] Name Value Range Interpretation Code Description Data Grace rce(s) Supporting Document(s) Bicarbonate [Moles/volume] in Serum 27 mmol/L 22-29 [facility] Chloride [Moles/volume] in Serum or Plasma 102 mmol/L 98-107 [facility] Creatinine [Mass/volume] in Serum or Plasma 0.65 mg/dL 0.50-0.90 [facility] Glucose [Mass/volume] in Serum or Plasma 192 mg/dL 70-140 H [facility] Potassium [Moles/volume] in Serum or Plasma 2.9 mmol/L 3.4-5.1 [facility] Results called to and read back by JAVON LORA RN [id number] [id number] [id number] Sodium [Moles/volume] in Serum or Plasma 139 mmol/L 136-145 [facility] Urea nitrogen [Mass/volume] in Serum or Plasma 25 mg/dL 8-23 H [facility] Anion gap 3 in Serum or Plasma 10 mmol/L 8-15 [facility] Osmolality of Serum or Plasma by calculation 297 mosm/kg 275-300 [facility] Creatinine/Urea nitrogen [Mass Ratio] in Serum or Plasma 38 [facility] Calcium [Mass/volume] in Serum or Plasma 7.7 mg/dL 8.8-10.2 L [facility] Glomerular filtration rate/1.73 sq M pre dicted among non-blacks [Volume Rate/Area] in Serum or Plasma by Creatinine-based formula (MDRD) >6 0 [facility] Glomerular filtration rate/1.73 sq M pre dicted among blacks [Volume Rate/Area] in Serum or Plasma by Creatinine-based formula (MDRD) >60 [facility] ID Date Data Source [id number] 11/05/2019 05:10:[address] [facility] Name Value Range Interpretation Code Description Data Grace rce(s) Supporting Document(s) Magnesium [Mass/volume] in Serum or Plasma 1.8 mg/dL 1.6-2.4 [facility] ID Date Data Source [id number] 11/05/2019 05:10:57 AM [facility] Value Range Interpretation Code Description Data Grace rce(s) Supporting Document(s) Phosphate [Mass/volume] in Serum or Plasma 2.8 mg/dL 2.5-4.5 [facility] ID Date Data Source [id number] 11/05/2019 04:35:54 AM [facility] Value Range Interpretation Code Description Data Grace rce(s) Supporting Document(s) Glucose [Mass/volume] in Capillary blood by Glucometer 176 mg/dL 70- 140 H [facility] ID Date Data Source [id number] 11/05/2019 01:34:36 AM [facility] Value Range Interpretation Code Description Data Grace rce(s) Supporting Document(s) Bicarbonate [Moles/volume] in Serum 26 mmol/L 22-29 [facility] Chloride [Moles/volume] in Serum or Plasma 102 mmol/L 98-107 [facility] Creatinine [Mass/volume] in Serum or Plasma 0.70 mg/dL 0.50-0.90 [facility] Glucose [Mass/volume] in Serum or Plasma 188 mg/dL 70-140 H [facility] Potassium [Moles/volume] in Serum or Plasma 3.4 mmol/L 3.4-5.1 [facility] Sodium [Moles/volume] in Serum or Plasma 139 mmol/L 136-145 [facility] Urea nitrogen [Mass/volume] in Serum or Plasma 25 mg/dL 8-23 H [facility] Anion gap 3 in Serum or Plasma 10 mmol/L 8-15 [facility] Osmolality of Serum or Plasma by calculation 297 mosm/kg 275-300 [facility] Creatinine/Urea nitrogen [Mass Ratio] in Serum or Plasma 35 [facility] Calcium [Mass/volume] in Serum or Plasma 7.7 mg/dL 8.8-10.2 L [facility] Glomerular filtration rate/1.73 sq M pre dicted among non-blacks [Volume Rate/Area] in Serum or Plasma by Creatinine-based formula (MDRD) 90 mL/min/1.73m2 >60 [facility] Glomerular filtration rate/1.73 sq M pre dicted among blacks [Volume Rate/Area] in Serum or Plasma by Creatinine-based formula (MDRD) >60 [facility] ID Date Data Source [id number] 11/05/2019 01:06:[address] [facility] Name Value Range Interpretation Code Description Data Grace rce(s) Supporting Document(s) Glucose [Mass/volume] in Capillary blood by Glucometer 158 mg/dL 70- 140 H [facility] ID Date Data Source [id number] 11/04/2019 10:04:28 PM [facility] Value Range Interpretation Code Description Data Grace rce(s) Supporting Document(s) Glucose [Mass/volume] in Capillary blood by Glucometer 156 mg/dL 70- 140 H [facility] ID Date Data Source [id number] 11/04/2019 05:36:32 PM [facility] Value Range Interpretation Code Description Data Grace rce(s) Supporting Document(s) Bicarbonate [Moles/volume] in Serum 27 mmol/L 22-29 [facility] Chloride [Moles/volume] in Serum or Plasma 103 mmol/L 98-107 [facility] Creatinine [Mass/volume] in Serum or Plasma 0.68 mg/dL 0.50-0.90 [facility] Glucose [Mass/volume] in Serum or Plasma 192 mg/dL 70-140 H [facility] Potassium [Moles/volume] in Serum or Plasma 3.2 mmol/L 3.4-5.1 [facility] Sodium [Moles/volume] in Serum or Plasma 139 mmol/L 136-145 [facility] Urea nitrogen [Mass/volume] in Serum or Plasma 24 mg/dL 8-23 H [facility] Anion gap 3 in Serum or Plasma 9 mmol/L 8-15 [facility] Osmolality of Serum or Plasma by calculation 297 mosm/kg 275-300 [facility] Creatinine/Urea nitrogen [Mass Ratio] in Serum or Plasma 35 [facility] Calcium [Mass/volume] in Serum or Plasma 7.4 mg/dL 8.8-10.2 L [facility] Glomerular filtration rate/1.73 sq M pre dicted among non-blacks [Volume Rate/Area] in Serum or Plasma by Creatinine-based formula (MDRD) >6 0 [facility] Glomerular filtration rate/1.73 sq M pre dicted among blacks [Volume Rate/Area] in Serum or Plasma by Creatinine-based formula (MDRD) >60 [facility] ID Date Data Source [id number] 11/04/2019 06:07:[address] [facility] Name Value Range Interpretation Code Description Data Grace rce(s) Supporting Document(s) Glucose [Mass/volume] in Capillary blood by Glucometer 171 mg/dL 70- 140 H [facility] ID Date Data Source [id number] 11/04/2019 12:50:24 PM [facility] Value Range Interpretation Code Description Data Grace rce(s) Supporting Document(s) Color of Urine [facility] Clarity of Urine [facility] Specific gravity of Urine by Refractometry automated 1.014 1.003 -1.030 [facility] pH of Urine by Automated test strip 5.0 5.0-8.0 [facility] Protein [Mass/volume] in Urine by Automated test strip Neg [facility] Glucose [Mass/volume] in Urine by Automated test strip Neg [facility] Ketones [Mass/volume] in Urine by Automated test strip Neg [facility] Bilirubin.total [Presence] in Urine by Automated test strip Negative [facility] Hemoglobin [Presence] in Urine by Automated test strip Neg [facility] Leukocyte esterase [Presence] in Urine by Automated test strip Negative [facility] Nitrite [Presence] in Urine by Automated test strip [facility] Leukocytes [#/area] in Urine sediment by Automated count 0 /HPF 0 -5 [facility] Erythrocytes [#/area] in Urine sediment by Automated count 0 /HPF 0-3 [facility] Service comment [facility] ID Date Data Source [id number] 11/04/2019 11:43:49 AM [facility] Value Range Interpretation Code Description Data Grace rce(s) Supporting Document(s) Glucose [Mass/volume] in Capillary blood by Glucometer 172 mg/dL 70- 140 [facility] ID Date Data Source [id number] 11/04/2019 08:00:33 AM [facility] Value Range Interpretation Code Description Data Grace rce(s) Supporting Document(s) Glucose [Mass/volume] in Capillary blood by Glucometer 161 mg/dL 70- 140 H [facility] ID Date Data Source [id number] 11/04/2019 06:54:37 AM [facility] Value Range Interpretation Code Description Data Grace rce(s) Supporting Document(s) Leukocytes [#/volume] in Blood by Automated count 15.7 10*3/uL 4-10 H [facility] Erythrocytes [#/volume] in Blood by Automated count 2.46 10*6/uL 4.1- 5.3 [facility] Hemoglobin [Mass/volume] in Blood 7.2 g/dL 11.5-15.5 [facility] Hematocrit [Volume Fraction] of Blood by Automated count 20.8 % 3 6-45 [facility] No significant change since last result called Erythrocyte mean corpuscular volume [Entitic volume] by Auto mated count 84.5 fL 80-96 [facility] Erythrocyte mean corpuscular hemoglobin [Entitic mass] by Automated count 29.0 pg 27-33 [facility] Erythrocyte mean corpuscular hemoglobin concentration [Mass/volume] by Automated count 34.4 g[facility]dL [facility].0-[facility] width [Ratio] by Automated count 15.6 % 11.5-14.5 H [facility] Platelets [#/volume] in Blood by Automated count 208 10*3/uL 150-400 [facility] ID Date Data Source [id number] 11/04/2019 03:40:08 AM [facility] Value Range Interpretation Code Description Data Grace rce(s) Supporting Document(s) Glucose [Mass/volume] in Capillary blood by Glucometer 160 mg/dL 70- 140 [facility] ID Date Data Source [id number] 11/04/2019 02:34:11 AM [facility] Value Range Interpretation Code Description Data Grace rce(s) Supporting Document(s) Leukocytes [#/volume] in Blood by Automated count 14.5 10*3/uL 4-10 H [facility] Erythrocytes [#/volume] in Blood by Automated count 2.11 10*6/uL 4.1- 5.3 [facility] Hemoglobin [Mass/volume] in Blood 6.1 g/dL 11.5-15.5 L [facility] Hematocrit [Volume Fraction] of Blood by Automated count 18.0 % 3 6-45 LL [facility] No significant change since last result called Erythrocyte mean corpuscular volume [Entitic volume] by Auto mated count 85.4 fL 80-96 [facility] Erythrocyte mean corpuscular hemoglobin [Entitic mass] by Automated count 29.0 pg 27-33 [facility] Erythrocyte mean corpuscular hemoglobin concentration [Mass/volume] by Automated count 33.9 g/dL 32.0-36.[facility] width [Ratio] by Automated count 15.3 % 11.5-14.5 H [facility] Platelets [#/volume] in Blood by Automated count 210 10*3/uL 150-400 [facility] Differential cell count method - Blood [facility] Neutrophils/100 leukocytes in Blood by Automated count 82 % [facility] Lymphocytes/100 leukocytes in Blood by Automated count 7 % [facility] Monocytes/100 leukocytes in Blood by Automated count 11 % [facility] Eosinophils/100 leukocytes in Blood by Automated count 0 % [facility] Basophils/100 leukocytes in Blood by Automated count 0 % [facility] Neutrophils [#/volume] in Blood by Automated count 11.97 10*3/uL 1.8- 7.0 H [facility] Lymphocytes [#/volume] in Blood by Automated count 0.96 10*3/uL 1.2-4 .0 L [facility] Monocytes [#/volume] in Blood by Automated count 1.56 10*3/uL 0-0.8 H [facility] Eosinophils [#/volume] in Blood by Automated count 0.02 10*3/uL 0-0.5 [facility] Basophils [#/volume] in Blood by Automated count 0.04 10*3/uL 0-0.2 [facility] Nucleated erythrocytes/100 leukocytes [Ratio] in Blood by Automated count 0 /100{WBCs} 0-0 [facility] ID Date Data Source [id number] 11/04/2019 02:51:27 AM EDT [facility] Name Value Range Interpretation Code Description Data Grace rce(s) Supporting Document(s) Bicarbonate [Moles/volume] in Serum 26 mmol/L 22-29 [facility] Chloride [Moles/volume] in Serum or Plasma 103 mmol/L 98-107 [facility] Creatinine [Mass/volume] in Serum or Plasma 0.67 mg/dL 0.50-0.90 [facility] Glucose [Mass/volume] in Serum or Plasma 174 mg/dL 70-140 H [facility] Potassium [Moles/volume] in Serum or Plasma 3.4 mmol/L 3.4-5.1 [facility] Sodium [Moles/volume] in Serum or Plasma 139 mmol/L 136-145 [facility] Urea nitrogen [Mass/volume] in Serum or Plasma 24 mg/dL 8-23 H [facility] Anion gap 3 in Serum or Plasma 10 mmol/L 8-15 [facility] Osmolality of Serum or Plasma by calculation 297 mosm/kg 275-300 [facility] Creatinine/Urea nitrogen [Mass Ratio] in Serum or Plasma 35 [facility] Calcium [Mass/volume] in Serum or Plasma 7.9 mg/dL 8.8-10.2 L [facility] Glomerular filtration rate/1.73 sq M pre dicted among non-blacks [Volume Rate/Area] in Serum or Plasma by Creatinine-based formula (MDRD) >6 0 [facility] Glomerular filtration rate/1.73 sq M pre dicted among blacks [Volume Rate/Area] in Serum or Plasma by Creatinine-based formula (MDRD) >60 [facility] ID Date Data Source [id number] 11/03/2019 11:56:02 PM EDT [facility] Value Range Interpretation Code Description Data Grace rce(s) Supporting Document(s) Glucose [Mass/volume] in Capillary blood by Glucometer 191 mg/dL 70- 140 H [facility] ID Date Data Source [id number] 11/03/2019 08:16:08 PM EDT [facility] Value Range Interpretation Code Description Data Grace rce(s) Supporting Document(s) Glucose [Mass/volume] in Capillary blood by Glucometer 176 mg/dL 70- 140 H [facility] ID Date Data Source [id number] [facility]2019 [facility] Interpretation Code Description Data Grace rce(s) Supporting Document(s) Glucose [Mass/volume] in Capillary blood by Glucometer 195 mg/dL 70- 140 H [facility] ID Date Data Source [id number] 11/03/2019 12:02:14 PM [facility] Value Range Interpretation Code Description Data Grace rce(s) Supporting Document(s) Glucose [Mass/volume] in Capillary blood by Glucometer 217 mg/dL 70- 140 H [facility] ID Date Data Source [id number] 11/03/2019 10:37:27 AM [facility] Value Range Interpretation Code Description Data Grace rce(s) Supporting Document(s) Glucose [Mass/volume] in Capillary blood by Glucometer 180 mg/dL 70- 140 H [facility] ID Date Data Source [id number] 11/03/2019 07:04:53 AM [facility] Value Range Interpretation Code Description Data Grace rce(s) Supporting Document(s) Glucose [Mass/volume] in Capillary blood by Glucometer 162 mg/dL 70- 140 H [facility] ID Date Data Source [id number] 11/03/2019 06:14:19 AM [facility] Value Range Interpretation Code Description Data Grace rce(s) Supporting Document(s) Glucose [Mass/volume] in Capillary blood by Glucometer 170 mg/dL 70- 140 [facility] ID Date Data Source [id number] 11/03/2019 05:06:57 AM [facility] Value Range Interpretation Code Description Data Grace rce(s) Supporting Document(s) Glucose [Mass/volume] in Capillary blood by Glucometer 162 mg/dL 70- 140 [facility] ID Date Data Source [id number] 11/03/2019 04:04:56 AM [facility] Value Range Interpretation Code Description Data Grace rce(s) Supporting Document(s) Glucose [Mass/volume] in Capillary blood by Glucometer 160 mg/dL 70- 140 [facility] ID Date Data Source [id number] 11/03/2019 03:14:16 AM [facility] Value Range Interpretation Code Description Data Grace rce(s) Supporting Document(s) Glucose [Mass/volume] in Capillary blood by Glucometer 153 mg/dL 70- 140 [facility] ID Date Data Source [id number] 11/03/2019 03:18:49 AM [facility] Value Range Interpretation Code Description Data Grace rce(s) Supporting Document(s) Leukocytes [#/volume] in Blood by Automated count 13.3 10*3/uL 4-10 H [facility] Erythrocytes [#/volume] in Blood by Automated count 2.45 10*6/uL 4.1- 5.3 L [facility] Hemoglobin [Mass/volume] in Blood 7.0 g/dL 11.5-15.5 L [facility] Hematocrit [Volume Fraction] of Blood by Automated count 20.9 % 3 6-45 [facility] Called to and read back by DIANELYS Mora [id number] AT 0318 BY 1522 Erythrocyte mean corpuscular volume [Entitic volume] by Auto mated count 85.4 fL 80-96 [facility] Erythrocyte mean corpuscular hemoglobin [Entitic mass] by Automated count 28.3 pg 27-33 [facility] Erythrocyte mean corpuscular hemoglobin concentration [Mass/volume] by Automated count 33.2 g[facility].0[facility] width [Ratio] by Automated count 15.2 % 11.5-14.5 H [facility] Platelets [#/volume] in Blood by Automated count 211 10*3/uL 150-400 [facility] Differential cell count method - Blood [facility] Neutrophils/100 leukocytes in Blood by Automated count 81 % [facility] Lymphocytes/100 leukocytes in Blood by Automated count 7 % [facility] Monocytes/100 leukocytes in Blood by Automated count 12 % [facility] Eosinophils/100 leukocytes in Blood by Automated count 0 % [facility] Basophils/100 leukocytes in Blood by Automated count 0 % [facility] Neutrophils [#/volume] in Blood by Automated count 10.63 10*3/uL 1.8- 7.0 H [facility] Lymphocytes [#/volume] in Blood by Automated count 0.98 10*3/uL 1.2-4 .0 L [facility] Monocytes [#/volume] in Blood by Automated count 1.64 10*3/uL 0-0.8 H [facility] Eosinophils [#/volume] in Blood by Automated count 0.00 10*3/uL 0-0.5 [facility] Basophils [#/volume] in Blood by Automated count 0.05 10*3/uL 0-0.2 [facility] Nucleated erythrocytes/100 leukocytes [Ratio] in Blood by Automated count 0 /100{WBCs} 0-0 [facility] ID Date Data Source [id number] 11/03/2019 03:47:[address] [facility] Name Value Range Interpretation Code Description Data Grace rce(s) Supporting Document(s) Bicarbonate [Moles/volume] in Serum 23 mmol/L 22-29 [facility] Chloride [Moles/volume] in Serum or Plasma 107 mmol/L 98-107 [facility] Creatinine [Mass/volume] in Serum or Plasma 0.69 mg/dL 0.50-0.90 [facility] Glucose [Mass/volume] in Serum or Plasma 171 mg/dL 70-140 [facility] Potassium [Moles/volume] in Serum or Plasma 4.1 mmol/L 3.4-5.1 [facility] Sodium [Moles/volume] in Serum or Plasma 140 mmol/L 136-145 [facility] Urea nitrogen [Mass/volume] in Serum or Plasma 20 mg/dL 8-23 [facility] Anion gap 3 in Serum or Plasma 10 mmol/L 8-15 [facility] Osmolality of Serum or Plasma by calculation 297 mosm/kg 275-300 [facility] Creatinine/Urea nitrogen [Mass Ratio] in Serum or Plasma 28 [facility] Calcium [Mass/volume] in Serum or Plasma 8.0 mg/dL 8.8-10.2 L [facility] Glomerular filtration rate/1.73 sq M pre dicted among non-blacks [Volume Rate/Area] in Serum or Plasma by Creatinine-based formula (MDRD) >6 0 [facility] Glomerular filtration rate/1.73 sq M pre dicted among blacks [Volume Rate/Area] in Serum or Plasma by Creatinine-based formula (MDRD) >60 [facility] ID Date Data Source [id number] 11/03/2019 03:14:16 AM [facility] Value Range Interpretation Code Description Data Grace rce(s) Supporting Document(s) Glucose [Mass/volume] in Capillary blood by Glucometer 160 mg/dL 70- 140 H [facility] ID Date Data Source [id number] 11/03/2019 03:14:16 AM [facility] Value Range Interpretation Code Description Data Grace rce(s) Supporting Document(s) Glucose [Mass/volume] in Capillary blood by Glucometer 150 mg/dL 70- 140 H [facility] ID Date Data Source [id number] 11/03/2019 12:18:[address] [facility] Name Value Range Interpretation Code Description Data Grace rce(s) Supporting Document(s) Glucose [Mass/volume] in Capillary blood by Glucometer 153 mg/dL 70- 140 [facility] ID Date Data Source [id number] 11/02/2019 11:14:00 PM [facility] Value Range Interpretation Code Description Data Grace rce(s) Supporting Document(s) Glucose [Mass/volume] in Capillary blood by Glucometer 144 mg/dL 70- 140 [facility] ID Date Data Source [id number] 11/02/2019 10:16:14 PM [facility] Value Range Interpretation Code Description Data Grace rce(s) Supporting Document(s) Glucose [Mass/volume] in Capillary blood by Glucometer 143 mg/dL 70- 140 [facility] ID Date Data Source [id number] 11/02/2019 10:15:31 PM [facility] Value Range Interpretation Code Description Data Grace rce(s) Supporting Document(s) Leukocytes [#/volume] in Blood by Automated count 11.4 10*3/uL 4-10 H [facility] Erythrocytes [#/volume] in Blood by Automated count 2.53 10*6/uL 4.1- 5.3 [facility] Hemoglobin [Mass/volume] in Blood 7.2 g/dL 11.5-15.5 [facility] Hematocrit [Volume Fraction] of Blood by Automated count 21.7 % 3 6-45 L [facility] Erythrocyte mean corpuscular volume [Entitic volume] by Auto mated count 85.7 fL 80-96 [facility] Erythrocyte mean corpuscular hemoglobin [Entitic mass] by Automated count 28.5 pg 27-33 [facility] Erythrocyte mean corpuscular hemoglobin concentration [Mass/volume] by Automated count 33.3 g/dL 32.0-36.[facility] width [Ratio] by Automated count 15.1 % 11.5-14.5 [facility] Platelets [#/volume] in Blood by Automated count 211 10*3/uL 150-400 [facility] Differential cell count method - Blood [facility] Neutrophils/100 leukocytes in Blood by Automated count 78 % [facility] Lymphocytes/100 leukocytes in Blood by Automated count 10 % [facility] Monocytes/100 leukocytes in Blood by Automated count 12 % [facility] Eosinophils/100 leukocytes in Blood by Automated count 0 % [facility] Basophils/100 leukocytes in Blood by Automated count 0 % [facility] Neutrophils [#/volume] in Blood by Automated count 8.90 10*3/uL 1.8-7 .0 H [facility] Lymphocytes [#/volume] in Blood by Automated count 1.10 10*3/uL 1.2-4 .0 L [facility] Monocytes [#/volume] in Blood by Automated count 1.33 10*3/uL 0-0.8 H [facility] Eosinophils [#/volume] in Blood by Automated count 0.00 10*3/uL 0-0.5 [facility] Basophils [#/volume] in Blood by Automated count 0.04 10*3/uL 0-0.2 [facility] Nucleated erythrocytes/100 leukocytes [Ratio] in Blood by Automated count 0 /100{WBCs} 0-0 [facility] ID Date Data Source [id number] 11/02/2019 10:16:[address] [facility] Name Value Range Interpretation Code Description Data Grace rce(s) Supporting Document(s) Glucose [Mass/volume] in Capillary blood by Glucometer 123 mg/dL 70- 140 [facility] ID Date Data Source [id number] 11/02/2019 08:22:[address] [facility] Name Value Range Interpretation Code Description Data Grace rce(s) Supporting Document(s) History and Physical [facility] NVXNPq1gOtFRRrEu93/TTZtrKOGet6HyYNxqHHa5OGtuPMJzU6MgMNY1gP2oIJT1ZJnUCuVoZkGmDcVc [facility] [file] ICAgICAgICAgICAgICAgICAgICAgICAgICAgICAgIC AgICAgICAgICAgICAgICAgICAgICAgICAgICAgICAgICAgDQogICAgICAgICAgICAgICAgICAgICAgIC AgICAgICAgICAgICAgICAgICAgICAgICAgICAgICAgICAgICAgICAgICAgICAgICAgICAgICAgICAgIC AgICAgICAgICAgICAgICAgDQogICAgICAgICAgICAg ICAgICAgICAgICAgICAgICAgICAgICAgICAgICAgICAgICAgICAgICAgICAgICAgICAgICAgICAgICAg ICAgICAgICAgICAgICAgICAgICAgICAgICAgDQogICAgICAgICAgICAgICAgICAgICAgICAgICAgICAg ICAgICAgICAgICAgICAgICAgICAgICAgICAgICAgIC AgICAgICAgICAgICAgICAgICAgICAgICAgICAgICAgICAgICAgDQogICAgICAgICAgICAgICAgICAgIC AgICAgICAgICAgICAgICAgICAgICAgICAgICAgICAgICAgICAgICAgICAgICAgICAgICAgICAgICAgIC AgICAgICAgICAgICAgICAgICAgDQogICAgICAgICAg ICAgICAgICAgICAgICAgICAgICAgICAgICAgICAgICAgICAgICAgICAgICAgICAgICAgICAgICAgICAg ICAgICAgICAgICAgICAgICAgICAgICAgICAgICAgDQogICAgICAgICAgICAgICAgICAgICAgICAgICAg ICAgICAgICAgICAgICAgICAgICAgICAgICAgICAgIC AgICAgICAgICAgICAgICAgICAgICAgICAgICAgICAgICAgICAgICAgDQogICAgICAgICAgICAgICAgIC AgICAgICAgICAgICAgICAgICAgICAgICAgICAgICAgICAgICAgICAgICAgICAgICAgICAgICAgICAgIC AgICAgICAgICAgICAgICAgICAgICAgDQogICAgICAg ICAgICAgICAgICAgICAgICAgICAgICAgICAgICAgICAgICAgICAgICAgICAgICAgICAgICAgICAgICAg ICAgICAgICAgICAgICAgICAgICAgICAgICAgICAgICAgDQogICAgICAgICAgICAgICAgICAgICAgICAg ICAgICAgICAgICAgICAgICAgICAgICAgICAgICAgIC RzIMDpZITkQIMbCUBlCVEoHRYpWVKbCSYmNPXoFMInFSFkMNIaNTXxHYEvQTk3X5tlFRYuJSYvHL0sWI d3Jz8+ZEwMIyNfOHY4csLdzE5HXD5rx2SuXIifPBMkf0FpYWo9KH8LPJRhFXrqHN5PIMnfwz5LROWoLJ EyoRDCm0oxDmWdQNI3ADCoWrcaTZ4YORVpG0iefnGo FCMhGNKFVQydACGYZEfyLYWMKPVcLZNbNmYsAlMoEYYiSQ7SOERsN659vzAuQL0QVi9RPlEbQP1tjy3A ZiOoTRQdFciETof4NLwtWT9ApSDwpGRqHaCmVHVCUaFaB0zwv6ScKgYcKHPMNHlnFS6Rc3EvoEFlJJu+ Bn5VUI7dr4YqCXxdOkLjXB3vmu2CAVkHIxXiW3JzlJ edZImkXJXcbDKAuRtpAQPPO8R5fkOqIESBJYT6HXWsFe0mEUNuBCA6FyR6TCGNIX3IDBVhQYPpkNIyDG CsHTQLFG3LEJvgFDV3VEMsqxZufQIjJKayZK4UVYWyiwZgClZqSRTGMYa+Ch9XDR3yq5GeFQxvYBBxAY 7uvg3ZMKmCQhTeE4U9nLSzB3T5VDawOj0VBVZbMBAh GeSdXVOBJMpsJQ9HCS6yxsO1ZC6TkIVrYKOzVSAsmYYsMXp3Z28zjMIePXdyBZ1MIVO+Alise+Du2ICXKz QWQoHQJxRtLqSLKMQlXxK0XrW1OSf7QjG3FcMD34nGrbmdFbSRzlHT6AHJ9bZNRmRSNIPF5JlBOooY0a klBhLqJzCQSVRqWyN05mmEWsZSNvMGTaWZDzKy1IZV GkI7YwumVdpXmfdlZeTWVqZTWATH6XZUgimhFmbQQfmXhkUK38cNfbOS6TWn9AJrDqVS6yxu9QfYAhNj 5ZWOItFA9UPFBmCPGwRDPcNAD3ZWPvLiTnOXvuJLAzJXZcJKP9ATOlCYChFV3LTpUkTBJzGGB6FjscOX ZbZAPzgg4STTHeUPZ5BwWeFHRpHOMiOVSqDGyxBJJi CXOyWNX2JYSyGLQbLY7AAbXhEIXfUQDwNcOjTWKsAVPewn1KIBOrTXOrOiX9EOAxWFOrUXNcTPtcBHOq EGC3CPezTJXsPUUpKZ2NVvZlRJDyZPR3RKUvEJEjCOBesz8KSJMxEIRlLci5QnAnSTVqWSLaDTjmUYTz EDX5DAm3GKMlJFQrIP1BJyKiAAGcUKW4WUOoPZCkVN Orau9ZOERgUCQoHIw9MuUrWVWjMJAbHEmiMRXxYISkRjj4JXXdVMGqDI6MWoRlWGUtTQXwBGWhQCTgKG Lbjw7YHUJkWPCeByj9KHFrPVWhFJAuRKakTDRmDIB2CCH1EPIkAZWuUI2SXcZoRCKoUHRuGZGgYMYhXZ Oxys7IKKPbGBGmUBIcJZZfRMLiJUFmPEyzAKCmWGV2 SILbGOWeZYGeWZ3GMqRpSQPmWWW9EPRvUEJiSQRrbm5BGJWaHNXnQvA6TLTlJTXjRDAcFKmvRNObBBK6 EQW4ZJOeGKDlSO2YMrZyDVVgWYumIaAeNSYxKFJwwm7DULMjJFFtEWA7WdPnARTdGFUwBZucAWRhMJL8 Rlh5ZGOjCYSeSD1GLqQxQUJxBkOqNCUxYLKzPCNuad 2SDDKnBCZbBGUqOQThKAKlDLGsYFmxZEZoLXS3UQUxZMSiVCGxIU2AKrSkHNSiQjM0TnTaJVMjPFHnvd 8MFGKbVGD3MCAjXoYnOQBtEZVrDFxkREQaWXQ8QCV7PFDkEHKwZR9CSaGuOSBmGBgmUllaAZBpWZLhmq 7ABICxHUD5SiF8CCCqOQToYPElIQfuGDUlWZL1BXK2 EQHqLSIaYP2ITtDjNQuiZZWYGqw8NAtiP3b5TDIqKP0KS3Vtb7GpSxWoQAPEWMxhZE6pooRuBYSoHq8S J6pMVdytRPRyXgxvKEE7LTAbFsajTwJmJshvPsFkNrM5NOx8Dd3iNASeUHYzNVOjBHR1XbXcEmThM9W5 JSJoTFDzXpF3ZZIeZqNeEY7MYc3XYyP8SJO0wZFyGn4MSXv3KmpPHcJfYI1LLPn= ID Date Data Source [id number] 11/02/2019 08:24:26 PM EDT [facility] Name Value Range Interpretation Code Description Data Grace rce(s) Supporting Document(s) Glucose [Mass/volume] in Capillary blood by Glucometer 139 mg/dL 70- 140 [facility] ID Date Data Source [id number] 11/02/2019 07:06:[address] [facility] Name Value Range Interpretation Code Description Data Grace rce(s) Supporting Document(s) Glucose [Mass/volume] in Capillary blood by Glucometer 145 mg/dL 70- 140 [facility] ID Date Data Source [id number] 11/02/2019 05:49:[address] [facility] XR CHEST FRONTAL ONLY [id number] RESULTI nterpreted by:Sheela Ma MDINDICATION: Intubated, postop day 0 status post posterior fusion of T1- T6. TECHNIQUE: Semiupright AP Portable view of the chest.COMPARISON: Chest radiograph dated November 01, 2019. FINDINGS:Lines and tubes: An endotracheal tube is present, however the tip and the faraz are obscured by overlying hardware, the tube terminates within the thoracic inlet. The enteric tube tip projects over the gastric fundus. Drains project over the mid thoracic region.Heart: The mediastinal and cardiac contours are unchanged.Pleura: Small left pleural effusion with associated lower lung atelectasis. No evidence of pneumothorax.Lungs: Left lower lung opacity likely represents atelectasis. Low lung volumes are present with bibasilar atelectasis.Bones: The visualized osseous structures are grossly unchanged. Posterior fusion hardware of the upper thoracic spine appears grossly intact. Surgical jazmyn and drains project over the operative region.IMPRESSION:1. Expected postoperative changes status post posterior fusion of the upper thoracic spine. The hardware appears intact.2. Enlarging left pleural effusion with associated lower lung atelectasis.This document has been electronically signed by Ignacio Cantu MD on 11/02/2019 5:47 PM Name Value Range Interpretation Code Description Data Grace rce(s) Supporting Document(s) ID Date Data Source [id number] [facility] Interpretation Code Description Data Grace rce(s) Supporting Document(s) pH of Arterial blood 7.30 7.38-7.44 [facility] Carbon dioxide [Partial pressure] in Arterial blood 48 mmHg 35-40 H [facility] Oxygen [Partial pressure] in Arterial blood 146 mmHg 95-100 [facility] Base excess standard in Arterial blood by calculation [facility] Oxygen saturation Calculated from oxygen partial press ure in Arterial blood 99 % 94-100 [facility] Bicarbonate [Moles/volume] in Arterial blood 25 mmol/L [facility] Sodium [Moles/volume] in Blood 142 mmol/L 136-145 [facility] Potassium [Moles/volume] in Blood 3.8 mmol/L 3.4-5.1 [facility] Calcium.ionized [Moles/volume] in Blood 1.17 mmol/L 1.13-1.32 [facility] Glucose [Mass/volume] in Blood 201 mg/dL 70-140 [facility] Hematocrit [Volume Fraction] of Blood 23 % 36-45 [facility] Hemoglobin [Mass/volume] in Blood by calculation 7.8 g/dL 11.5-15.5 [facility] ID Date Data Source [id number] 11/04/2019 08:04:[address] [facility] Name Value Range Interpretation Code Description Data Grace rce(s) Supporting Document(s) Blood bank comment [facility] ID Date Data Source [id number] 11/06/2019 06:59:[address] [facility] 11/05/2019,0000Verbal order from OR abebe hesia Name Value Range Interpretation Code Description Data Grace rce(s) Supporting Document(s) ABO and Rh group [Type] in Blood [facility] Performed at [facility] [place] ID Date Data Source [id number] 11/03/2019 08:01:[address] [facility] Name Value Range Interpretation Code Description Data Grace rce(s) Supporting Document(s) ABO and Rh group [Type] in Blood [facility] Blood group antibody screen [Presence] in Serum or Plasma [facility] Blood bank comment [facility] ID Date Data Source [id number] 09/27/2019 01:43:00 PM EDT [facility] DATE OF EXAMINATION: 09/27/2019 13:05 EDT TECHNIQUE: 3 views of the thoracic spine were obtained. HISTORY: Pain FINDINGS: Mild levoconvex scoliosis of the upper thoracic spine is noted. Bones are mildlyosteopenic. Moderate degenerative changes are seen at all levels IMPRESSION: Findings as described above. Electronically signed in [id number] by: Heydi Moyer M.D. 09/27/2019 13:38 EDT Name Value Range Interpretation Code Description Data Grace rce(s) Supporting Document(s) ID Date Data Source [id number] 09/27/2019 01:42:00 PM EDT [facility] DATE OF EXAMINATION: 09/27/2019 13:05 EDT CHEST 2 VIEWS HISTORY: Pain. Back pain. TECHNIQUE: PA and lateral radiographs of the chest COMPARISON: 12/09/2018. FINDINGS: No evidence of focal consolidation, pneumothorax or large pleural effusion.Lungs are clear. Mediastinal structures are unremarkable. No aggressive osseouslesions. IMPRESSION: No focal consolidation. Electronically signed in [id number] by: Heydi Moyer M.D. 09/27/2019 13:37 EDT Name Value Range Interpretation Code Description Data Grace rce(s) Supporting Document(s) ID Date Data Source [id number] 09/27/2019 01:27:00 PM EDT [facility] DATE OF EXAMINATION: 09/27/2019 13:05 ED T BRAIN W/O CONTRAST HISTORY: Syncope. TECHNIQUE: This CT exam was performed using the following dose reduction techniques:automatic exposure control, adjustment of mA and/or kV according to thepatient's size, and use of iterative reconstruction technique. Standard contiguous axial spiral imaging was obtained from the skull basethrough the vertex without contrast administration and with coronalreformatting. FINDINGS: BRAIN: Basilar cisterns and ventricles appear normal. No space occupyinglesions, intracerebral edema, or any signs of mass effects are noted. Base ofthe skull appears normal. IMPRESSION: Moderate chronic deep white matter ischemic changes. Electronically signed in [id number] by: Heydi Moyer M.D. 09/27/2019 13:21 EDT Name Value Range Interpretation Code Description Data Grace rce(s) Supporting Document(s) ID Date Data Source [id number] 09/27/2019 02:10:00 PM [facility] Name Value Range Interpretation Code Description Data Grace rce(s) Supporting Document(s) FREE T4 0.69 ng/dL 0.76-1.46 L [facility] ID Date Data Source [id number] 09/27/2019 02:10:00 PM EDT [facility] Name Value Range Interpretation Code Description Data Grace rce(s) Supporting Document(s) TSH 2.29 uIU/mL 0.36-3.74 [facility] ID Date Data Source [id number] 09/27/2019 01:29:00 PM EDT [facility] Name Value Range Interpretation Code Description Data Grace rce(s) Supporting Document(s) ETHYL ALCOHOL 0.00 % 0-0.01 [facility] ID Date Data Source [id number] 09/27/2019 01:29:00 PM EDT [facility] Name Value Range Interpretation Code Description Data Grace rce(s) Supporting Document(s) GLUCOSE 149 mg/dL 74-106 H [facility] BLOOD UREA NITROGEN 19 mg/dL 7-18 [facility] CREATININE 0.8 mg/dL 0.6-1.0 [facility] SODIUM 143 mmol/L 136-145 [facility] POTASSIUM 4.1 mmol/L 3.5-5.1 [facility] CHLORIDE 103 mmol/L 98-107 [facility] CO2 33 mmol/L 21-32 H [facility] CALCIUM 8.9 mg/dL 8.5-10.1 [facility] ANION GAP 7.0 mmol/L 5-12 [facility] GLOMERULAR FILTRATION RATE 72 mL/min [facility] GFR IS CALCULATED IN mL/min/1.73m2 RAOUL L FUNCTION: >90MILDLY DECREASED: 60-89MILDY TO MODERATELY DECREASED: 45-59 MODERATELY TO SEVERELY DECREASED: 30-44SEVERELY DECREASED: 15-29RENAL FAILURE: <15 AST 14 U/L 15-37 L [facility] ALT 25 U/L 12-78 [facility] ALKALINE PHOSPHATASE 99 U/L 46-116 [facility] pital TOTAL BILIRUBIN 0.3 mg/dL 0.2-1.0 [facility] TOTAL PROTEIN 7.8 g/dl 6.4-8.2 [facility] ALBUMIN 4.1 gm/dL 3.4-5.0 [facility] ID Date Data Source [id number] 09/27/2019 01:29:00 PM EDT [facility] Name Value Range Interpretation Code Description Data [facility] rce(s) Supporting Document(s) MAGNESIUM 1.9 mg/dL 1.8-2.4 [facility] ID Date Data Source [id number] 09/27/2019 01:19:00 PM EDT [facility] Name Value Range Interpretation Code Description Data [facility] rce(s) Supporting Document(s) WHITE BLOOD COUNT 9.8 K/mm3 4.0-10.0 [facility] RED BLOOD COUNT 4.91 M/mm3 4.00-5.50 [facility] HEMOGLOBIN 13.6 gm/dL 12.0-16.0 [facility] HEMATOCRIT 42.5 % 36.0-48.8 [facility] MEAN CELL VOLUME 86.6 fl 80-96 [facility] MEAN CORPUSCULAR HEMOGLOBIN 27.7 pg 27.0-31.0 [facility] MEAN CORPUSCULAR HGB CONC 32.0 g/dl 32.0-36.0 [facility] RED CELL DISTRIBUTION WIDTH 14.1 % 10.0-14.5 [facility] PLATELET COUNT 380 K/mm3 172-450 [facility] MEAN PLATELET VOLUME 10.0 fl 9.0-13.0 [facility] pital GRAN % 70.8 % 50-80.0 [facility] IG% 0.2 % 0.0-0.2 [facility] LYMPH % 19.0 % 25.0-50.0 L [facility] MONO % 7.6 % 2.0-10.0 [facility] EOS % 1.9 % 0-5.0 [facility] BASO % 0.5 % 0.0-2.0 [facility] GRAN # 7.0 K/mm3 2.0-8.00 [facility] IG# 0.0 K/mm3 0.0-0.2 [facility] LYMPH # 1.9 K/mm3 1.0-5.0 [facility] MONO # 0.8 K/mm3 0.10-1.20 [facility] EOS # 0.2 K/mm3 0.0-0.5 [facility] BASO # 0.1 K/mm3 0.0-0.2 [facility] ID Date Data Source FREE T4 09/27/2019 12:00:00 AM EDT eCW1 ([facility]) Name Value Range Interpretation Code Description Data Grace rce(s) Supporting Document(s) 0.69 0.76-1.46 FREE T4 eCW1 ([facility]) ID Date Data Source [id number] 09/27/2019 12:00:00 AM EDT eCW1 ([facility]) Name Value Range Interpretation Code Description Data Grace rce(s) Supporting Document(s) 9.8 4.0-10.0 WHITE BLOOD COUNT eCW1 ([facility]) 4.91 4.00-5.50 RED BLOOD COUNT eCW1 ([facility]) 13.6 12.0-16.0 HEMOGLOBIN eCW1 ([facility]) 32.0 32.0-36.0 MEAN CORPUSCULAR HGB CONC eCW1 ([facility]) 27.7 27.0-31.0 MEAN CORPUSCULAR HEMOGLOB IN eCW1 ([facility]) 86.6 80-96 MEAN CELL VOLUME eCW1 ([facility]) 42.5 36.0-48.8 HEMATOCRIT eCW1 ([facility]) 10.0 9.0-13.0 MEAN PLATELET VOLUME eCW1 ([facility]) 380 172-450 PLATELET COUNT eCW1 ([facility]) 70.8 50-80.0 GRAN % eCW1 ([facility]) 14.1 10.0-14.5 RED CELL DISTRIBUTION WID TH eCW1 ([facility]) 7.6 2.0-10.0 MONO % eCW1 ([facility]) 0.5 0.0-2.0 BASO % eCW1 ([facility]) 1.9 0-5.0 EOS % eCW1 ([facility]) 19.0 25.0-50.0 LYMPH % eCW1 ([facility]) 1.9 1.0-5.0 LYMPH # eCW1 ([facility]) 0.2 0.0-0.5 EOS # eCW1 ([facility]) 0.8 0.10-1.20 MONO # eCW1 ([facility]) 7.0 2.0-8.00 GRAN # eCW1 ([facility]) 0.1 0.0-0.2 BASO # eCW1 ([facility]) ID Date Data Source [id number] 08/17/2019 06:05:00 AM EDT [facility] Name Value Range Interpretation Code Description Data Grace rce(s) Supporting Document(s) URINE CULTURE, ROUTINE Final report . [facility] UC RESULT1 No growth . [facility] Performed at: RN - [facility] [address] [id number] Director: Aislinn Hernandez MD, Phone: [phone] ID Date Data Source [id number] 08/17/2019 06:05:00 AM EDT [facility] Name Value Range Interpretation Code Description Data Grace rce(s) Supporting Document(s) Urine Culture, Routine Final report [facility] ID Date Data Source [id number] 08/17/2019 06:05:00 AM EDT [facility] Name Value Range Interpretation Code Description Data Grace rce(s) Supporting Document(s) Result 1 No growth [facility] ID Date Data Source [id number] 07/21/2019 12:09:00 PM EST [facility] Name Value Range Interpretation Code Description Data Grace rce(s) Supporting Document(s) CLAUDETTE DIRECT Negative Negative [facility] Performed at: RN - [facility] [address] [place] [address] [id number] Director: Aislinn Hernandez MD, Phone: [phone] ID Date Data Source [id number] 07/21/2019 12:05:00 PM EST [facility] Name Value Range Interpretation Code Description Data Grace rce(s) Supporting Document(s) CLAUDETTE Direct Negative Negative [facility] ID Date Data Source [id number] 07/20/2019 02:23:00 PM EST [facility] Name Value Range Interpretation Code Description Data Grace rce(s) Supporting Document(s) ERYTHROCYTE SEDIMENTATION RATE 16 mm/hr 0-30 [facility] ID Date Data Source [id number] 07/20/2019 11:46:00 AM [facility] Name Value Range Interpretation Code Description Data Grace rce(s) Supporting Document(s) GLUCOSE 135 mg/dL 74-106 H [facility] BLOOD UREA NITROGEN 22 mg/dL 7-18 H [facility] ital CREATININE 0.7 mg/dL 0.6-1.0 [facility] SODIUM 143 mmol/L 136-145 [facility] POTASSIUM 4.4 mmol/L 3.5-5.1 [facility] CHLORIDE 104 mmol/L 98-107 [facility] CO2 29 mmol/L 21-32 [facility] CALCIUM 8.9 mg/dL 8.5-10.1 [facility] ANION GAP 10.0 mmol/L 5-12 [facility] GLOMERULAR FILTRATION RATE 85 mL/min [facility] GFR IS CALCULATED IN mL/min/1.73m2 RAOUL L FUNCTION: >90MILDLY DECREASED: 60-89MILDY TO MODERATELY DECREASED: 45-59 MODERATELY TO SEVERELY DECREASED: 30-44SEVERELY DECREASED: 15-29RENAL FAILURE: <15 ID Date Data Source [id number] 07/20/2019 11:46:00 AM [facility] Name Value Range Interpretation Code Description Data Grace rce(s) Supporting Document(s) CHOLESTEROL 191 mg/dL 0-200 [facility] TRIGLYCERIDES 182 mg/dL 0-150 H [facility] LDL CHOLESTEROL 107 mg/dL 0-100 H [facility] HDL CHOLESTEROL 48 mg/dL 40-60 [facility] CHOL/HDL RATIO 4.0 0.0-5.0 [facility] ID Date Data Source [id number] 07/20/2019 01:51:00 PM [facility] Name Value Range Interpretation Code Description Data Grace rce(s) Supporting Document(s) C REACTIVE PROTEIN 5.6 mg/L 0.0-3.0 H [facility]reddie ID Date Data Source [id number] 07/20/2019 01:26:00 PM [facility] Name Value Range Interpretation Code Description Data Grace rce(s) Supporting Document(s) RHEUMATOID FACTOR SCREEN NEGATIVE NEGATIVE [facility] ID Date Data Source [id number] 07/20/2019 11:45:00 AM [facility] Name Value Range Interpretation Code Description Data Grace rce(s) Supporting Document(s) FREE T4 0.48 ng/dL 0.76-1.46 L [facility] ID Date Data Source [id number] 07/20/2019 11:45:00 AM EST [facility] Name Value Range Interpretation Code Description Data Grace rce(s) Supporting Document(s) TSH 21.48 uIU/mL 0.36-3.74 H [facility] ID Date Data Source [id number] 07/20/2019 11:08:00 AM EST [facility] Name Value Range Interpretation Code Description Data Grace rce(s) Supporting Document(s) ESTIMATED AVERAGE GLUCOSE 174.3 mg/dL [facility] ID Date Data Source [id number] 07/20/2019 11:08:00 AM EST [facility] Name Value Range Interpretation Code Description Data Grace rce(s) Supporting Document(s) HGBA1C 7.7 % 4.5-6.2 H [facility] ID Date Data Source CLAUDETTE W/REFLEX IF POSITIVE 07/20/2019 12:00:00 AM EST eCW1 ([facility]) Name Value Range Interpretation Code Description Data Grace rce(s) Supporting Document(s) Negative Negative CLAUDETTE DIRECT eCW1 ([facility]) ID Date Data Source RHEUMATOID FACTOR SCREEN 07/20/2019 12:00:00 AM EST eCW1 ([facility]) Name Value Range Interpretation Code Description Data Grace rce(s) Supporting Document(s) NEGATIVE NEGATIVE RHEUMATOID FACTOR SCREEN eCW1 ([facility]) ID Date Data Source BASIC METABOLIC PANEL 07/20/2019 12:00:00 AM EST eCW1 ([facility]) Name Value Range Interpretation Code Description Data Grace rce(s) Supporting Document(s) 135 74-106 GLUCOSE eCW1 ([facility]) 22 7-18 BLOOD UREA NITROGEN eCW1 ([facility]) 4.4 3.5-5.1 POTASSIUM eCW1 ([facility]) 143 136-145 SODIUM eCW1 ([facility]) 104 98-107 CHLORIDE eCW1 ([facility]) 0.7 0.6-1.0 CREATININE eCW1 ([facility]) 8.9 8.5-10.1 CALCIUM eCW1 ([facility]) 10.0 5-12 ANION GAP eCW1 ([facility]) 29 21-32 CO2 eCW1 ([facility]) 85 GLOMERULAR FILTRATION RAT E eCW1 ([facility]) ID Date Data Source [id number] 05/23/2019 10:53:00 AM [facility] Patient: HANNA GARVIN Repo rt - Physicians/Mid Levels [facility].VisitID: [id number] [place] [address] [phone], FRegistration Date/Time: 05/21/2019 00:03 Weight:117 kg (S). Height/Length:68 inches (S). BMI:39.2 PAST HISTORYProblems:Chronic Back Pain [Chronic].Sacroiliitis [Chronic].Hypertension [Chronic].Back Pain [Chronic].Migraine Headache [Chronic].Lumbar Radiculopathy [Chronic].Diabetes Mellitus [Chronic].Rheumatoid Arthritis [Chronic].Depression [Chronic].Vasovagal Syncope.Dehydration.Back Pain.Migraine Headache.Sprain.Dehydration [Resolved].Rib Fracture [Resolved].UTI - Urinary Tract Infection [Resolved].Abdominal Pain [Resolved]. Additional Surgeries:Ankle surgery .Cholecystectomy. Medications:oxyCODONE-Acetaminophen Oral 7.5/325 mg, 3x a day as needed, last dose yesterday.Atenolol Oral 50 mg, daily, last dose yesterday am.Cymbalta Oral (Capsule Delayed Release Particles 60 mg) 1 capsule, daily, last dose yesterday am.Folic Acid Oral (Tablet 1 mg) 1 tablet, daily every AM, last dose yesterday am.Gabapentin Oral (Tablet 600 mg), 4x a day, last dose yesterday am.Hydrochlorothiazide Oral 25 mg, daily every AM, last dose yesterday am.Lisinopril Oral (Tablet 40 mg) 1 tablet, daily, last dose yesterday am.MetFORMIN HCl Oral 500 mg, daily every AM, last dose yesterday am. Allergies:MDX - Nka - No Known Allergies. FAMILY HISTORYNo significant family medical history. (Electronically signed by Maximino Oreilly, P.ACheryl 05/21/2019 02:37) Name Value Range Interpretation Code Description Data Grace rce(s) Supporting Document(s) Procedure Social History Code Duration Value Status Description Data Source(s ) Alcohol intake 07/09/2020 12:00:00 AM EST Current non-d inez of alcohol (finding) completed Current non-drinker of alcohol (finding) [facility] Tobacco use and exposure 07/09/2020 12:00:00 AM EST Never used co mpleted Never used [facility] Smoking 07/09/2020 12:00:00 AM EST Never smoker completed Never s sdker [facility] Smoking 07/05/2020 12:00:00 AM EST Never Smoker completed Never S moker eCW1 ([facility]) Smoking 06/21/2020 12:00:00 AM EST Never Smoker completed Never S moker eCW1 ([facility]) Smoking 06/21/2020 12:00:00 AM EST Never Smoker completed Never S moker eCW1 ([facility]) Smoking 06/21/2020 12:00:00 AM EST Never Smoker completed Never S moker eCW1 ([facility]) Smoking 06/19/2020 12:00:00 AM EST Never Smoker completed Never S moker eCW1 ([facility]) Smoking 06/19/2020 12:00:00 AM EST Never Smoker completed Never S moker eCW1 ([facility]) Smoking 06/19/2020 12:00:00 AM EST Never Smoker completed Never S moker eCW1 ([facility]) Smoking 06/19/2020 12:00:00 AM EST Never Smoker completed Never S moker eCW1 ([facility]) Smoking 06/19/2020 12:00:00 AM EST Never Smoker completed Never S moker eCW1 ([facility]) Smoking 06/19/2020 12:00:00 AM EST Never Smoker completed Never S moker eCW1 ([facility]) Smoking 06/19/2020 12:00:00 AM EST Never Smoker completed Never S moker eCW1 ([facility]) Smoking 06/19/2020 12:00:00 AM EST Never Smoker completed Never S moker eCW1 ([facility]) Smoking 06/19/2020 12:00:00 AM EST Never Smoker completed Never S moker eCW1 ([facility]) Smoking 06/19/2020 12:00:00 AM EST Never Smoker completed Never S moker eCW1 ([facility]) Smoking 06/19/2020 12:00:00 AM EST Never Smoker completed Never S moker eCW1 ([facility]) Smoking 06/19/2020 12:00:00 AM EST Never Smoker completed Never S moker eCW1 ([facility]) Smoking 06/18/2020 12:00:00 AM EST Never Smoker completed Never S moker eCW1 ([facility]) Smoking 06/05/2020 12:00:00 AM EST Never Smoker completed Never S moker eCW1 ([facility]) Smoking 06/05/2020 12:00:00 AM EST Never Smoker completed Never S moker eCW1 ([facility]) Smoking 06/05/2020 12:00:00 AM EST Never Smoker completed Never S moker eCW1 ([facility]) Smoking 06/05/2020 12:00:00 AM EST Never Smoker completed Never S moker eCW1 ([facility]) Smoking 06/05/2020 12:00:00 AM EST Never Smoker completed Never S moker eCW1 ([facility]) Smoking 05/10/2020 12:00:00 AM EST Never Smoker completed Never S moker eCW1 ([facility]) Smoking 05/10/2020 12:00:00 AM EST Never Smoker completed Never S moker eCW1 ([facility]) Smoking 05/10/2020 12:00:00 AM EST Never Smoker completed Never S moker eCW1 ([facility]) Smoking 05/10/2020 12:00:00 AM EST Never Smoker completed Never S moker eCW1 ([facility]) Smoking 05/10/2020 12:00:00 AM EST Never Smoker completed Never S moker eCW1 ([facility]) Smoking 05/09/2020 12:00:00 AM EST Never Smoker completed Never S moker eCW1 ([facility]) Smoking 05/09/2020 12:00:00 AM EST Never Smoker completed Never S moker eCW1 ([facility]) Smoking 05/09/2020 12:00:00 AM EST Never Smoker completed Never S moker eCW1 ([facility]) Smoking 05/09/2020 12:00:00 AM EST Never Smoker completed Never S moker eCW1 ([facility]) Smoking 05/09/2020 12:00:00 AM EST Never Smoker completed Never S moker eCW1 ([facility]) Smoking 05/09/2020 12:00:00 AM EST Never Smoker completed Never S moker eCW1 ([facility]) Smoking 05/09/2020 12:00:00 AM EST Never Smoker completed Never S moker eCW1 ([facility]) Smoking 05/08/2020 12:00:00 AM EST Never Smoker completed Never S moker eCW1 ([facility]) Smoking 05/03/2020 12:00:00 AM EST Never Smoker completed Never S moker eCW1 ([facility]) Smoking 04/05/2020 12:00:00 AM EST Never Smoker completed Never S moker eCW1 ([facility]) Smoking 03/06/2020 12:00:00 AM EDT Never Smoker completed Never S moker eCW1 ([facility]) Smoking 03/06/2020 12:00:00 AM EDT Never Smoker completed Never S moker eCW1 ([facility]) Smoking 03/06/2020 12:00:00 AM EDT Never Smoker completed Never S moker eCW1 ([facility]) Smoking 03/06/2020 12:00:00 AM EDT Never Smoker completed Never S moker eCW1 ([facility]) Smoking 03/06/2020 12:00:00 AM EDT Never Smoker completed Never S moker eCW1 ([facility]) Smoking 01/02/2020 12:00:00 AM EDT Unknown if ever smoked comp leted Unknown if ever smoked [facility] Smoking 12/03/2019 12:00:00 AM EDT Unknown if ever smoked comp leted Unknown if ever smoked [facility] Smoking 10/20/2019 12:00:00 AM EDT Never Smoker completed Never S moker eCW1 ([facility]) Smoking 10/20/2019 12:00:00 AM EDT Never Smoker completed Never S moker eCW1 ([facility]) Smoking 10/20/2019 12:00:00 AM EDT Never Smoker completed Never S moker eCW1 ([facility]) Smoking 10/20/2019 12:00:00 AM EDT Never Smoker completed Never S moker eCW1 ([facility]) Smoking 10/20/2019 12:00:00 AM EDT Never Smoker completed Never S moker eCW1 ([facility]) Smoking 10/04/2019 12:00:00 AM EDT Never Smoker completed Never S moker eCW1 ([facility]) Vital Signs ID Date Data Source UNK Name Value Range Interpretation Code Description Data Source(s) Diastolic blood pressure 56 mm[Hg] 56 mm[Hg] eCW1 ([facility]) Systolic blood pressure 122 mm[Hg] 122 mm[Hg] e CW1 ([facility]) Body temperature 98 [degF] 98 [degF] eCW1 ([facility]) Respiratory rate 20 /min 20 /min eCW1 ([facility]) Heart rate 92 /min 92 /min eCW1 ([facility]) Body mass index (BMI) [Ratio] 40.12 kg/m2 40.12 kg/m2 W1 ([facility]) Body height 67.5 [in_i] 67.5 [in_i] eCW1 ([facility]) Body weight kg eCW1 ([facility]) Body weight 260 [lb_av] 260 [lb_av] eCW1 ([facility]) Diastolic blood pressure 44 mm[Hg] 44 mm[Hg] eCW1 ([facility]) Systolic blood pressure 91 mm[Hg] 91 mm[Hg] e CW1 ([facility]) Body temperature 96.8 [degF] 96.8 [degF] eCW1 ( [facility]) Respiratory rate 20 /min 20 /min eCW1 ([facility]) Heart rate 64 /min 64 /min eCW1 ([facility]) Body mass index (BMI) [Ratio] 40.12 kg/m2 40.12 kg/m2 eCW1 ([facility]) Body height 67.5 [in_i] 67.5 [in_i] eCW1 ([facility]) Body weight kg eCW1 ([facility]) Body weight 260 [lb_av] 260 [lb_av] eCW1 ([facility]) Body surface area Derived from formula 2.28 m2 2.28 m2 [facility] (Health system) Body weight 117.936 kg 117.936 kg [facility] ([facility]) Jakin body weight 140 [lb_av] 140 [lb_av] MED[facility] T (Health system) Body mass index (BMI) [Ratio] 39.5 kg/m2 39.5 k g/m2 [facility] Body weight 260.00 [lb_av] 260.00 [lb_av] [facility] T (Health system) Stated Body height 68 [in_i] 68 [in_i] [facility] ([facility]) 5'8" Diastolic blood pressure 64 mm[Hg] 64 mm[Hg] [facility] (Health system) Systolic blood pressure 104 mm[Hg] 104 mm[Hg] M EDENT ([facility], ) Oxygen saturation in Arterial blood by Pulse oximetry 96 % 96 % eCW1 ([facility]) Respiratory rate 18 /min 18 /min eCW1 ([facility]) Heart rate 86 /min 86 /min eCW1 ([facility]) Body temperature 98.2 [degF] 98.2 [degF] eCW1 ( [facility]) Body height 67.5 [in_i] 67.5 [in_i] eCW1 ([facility]) Diastolic blood pressure 54 mm[Hg] 54 mm[Hg] eCW1 ([facility]) Systolic blood pressure 111 mm[Hg] 111 mm[Hg] e CW1 ([facility]) Body temperature 96.4 [degF] 96.4 [degF] eCW1 ( [facility]) Respiratory rate 20 /min 20 /min eCW1 ([facility]) Heart rate 72 /min 72 /min eCW1 ([facility]) Body mass index (BMI) [Ratio] 40.12 kg/m2 40.12 kg/m2 eCW1 ([facility]) Body height 67.5 [in_i] 67.5 [in_i] eCW1 ([facility]) Body weight kg eCW1 ([facility]) Body weight 260 [lb_av] 260 [lb_av] eCW1 ([facility]) Oxygen saturation in Arterial blood by Pulse oximetry 97 % 97 % eCW1 ([facility]) Respiratory rate 18 /min 18 /min eCW1 ([facility]) Heart rate 87 /min 87 /min eCW1 ([facility]) Body temperature 98.4 [degF] 98.4 [degF] eCW1 ( [facility]) Body height 67.5 [in_i] 67.5 [in_i] eCW1 ([facility]) Diastolic blood pressure 58 mm[Hg] 58 mm[Hg] eCW1 ([facility]) Systolic blood pressure 109 mm[Hg] 109 mm[Hg] e CW1 ([facility]) Body temperature 96.1 [degF] 96.1 [degF] eCW1 ( [facility]) Respiratory rate 18 /min 18 /min eCW1 ([facility]) Heart rate 72 /min 72 /min eCW1 ([facility]) Body mass index (BMI) [Ratio] 40.12 kg/m2 40.12 kg/m2 eCW1 ([facility]) Body height 67.5 [in_i] 67.5 [in_i] eCW1 ([facility]) Body weight kg eCW1 ([facility]) Body weight 260 [lb_av] 260 [lb_av] eCW1 ([facility]) Diastolic blood pressure 86 mm[Hg] 86 mm[Hg] eCW1 ([facility]) Systolic blood pressure 172 mm[Hg] 172 mm[Hg] e CW1 ([facility]) Body temperature 97.0 [degF] 97.0 [degF] eCW1 ( [facility]) Respiratory rate 18 /min 18 /min eCW1 ([facility]) Heart rate 72 /min 72 /min eCW1 ([facility]) Body mass index (BMI) [Ratio] 40.73 kg/m2 40.73 kg/m2 eCW1 ([facility]) Body height 67.5 [in_us] 67.5 [in_us] eCW1 ([facility]) Body weight Measured 264 [lb_av] 264 [lb_av] eC W1 ([facility]) Deprecated Oxygen saturation in Capillary blood by Oximetry 97 % 97 % eCW1 ([facility]) Respiratory rate 18 /min 18 /min eCW1 ([facility]) Heart rate 94 /min 94 /min eCW1 ([facility]) Body temperature 98.6 [degF] 98.6 [degF] eCW1 ( [facility]) Body mass index (BMI) [Ratio] 39.75 kg/m2 39.75 kg/m2 eCW1 ([facility]) Body weight Measured 257.6 [lb_av] 257.6 [lb_av ] eCW1 ([facility]) Body height 67.5 [in_us] 67.5 [in_us] eCW1 ([facility]) Diastolic blood pressure 89 mm[Hg] 89 mm[Hg] eCW1 ([facility]) Systolic blood pressure 130 mm[Hg] 130 mm[Hg] e CW1 ([facility]) Body temperature 97.0 [degF] 97.0 [degF] eCW1 ( [facility]) Respiratory rate 18 /min 18 /min eCW1 ([facility]) Heart rate 72 /min 72 /min eCW1 ([facility]) Body mass index (BMI) [Ratio] 39.84 kg/m2 39.84 kg/m2 eCW1 ([facility]) Body height 67.5 [in_us] 67.5 [in_us] eCW1 ([facility]) Body weight Measured 258.2 [lb_av] 258.2 [lb_av ] eCW1 ([facility]) Diastolic blood pressure 78 mm[Hg] 78 mm[Hg] eCW1 ([facility]) Systolic blood pressure 138 mm[Hg] 138 mm[Hg] e CW1 ([facility]) Body temperature 97.3 [degF] 97.3 [degF] eCW1 ( [facility]) Respiratory rate 18 /min 18 /min eCW1 ([facility]) Heart rate 79 /min 79 /min eCW1 ([facility]) Body mass index (BMI) [Ratio] 40.76 kg/m2 40.76 kg/m2 eCW1 ([facility]) Body height 67.5 [in_us] 67.5 [in_us] eCW1 ([facility]) Body weight Measured 264.2 [lb_av] 264.2 [lb_av ] eCW1 ([facility]) Deprecated Oxygen saturation in Capillary blood by Oximetry 98 % 98 % eCW1 ([facility]) Respiratory rate 18 /min 18 /min eCW1 ([facility]) Heart rate 72 /min 72 /min eCW1 ([facility]) Body temperature 98.2 [degF] 98.2 [degF] eCW1 ( [facility]) Body mass index (BMI) [Ratio] 40.24 kg/m2 40.24 kg/m2 eCW1 ([facility]) Body weight Measured 260.8 [lb_av] 260.8 [lb_av ] eCW1 ([facility]) Body height 67.5 [in_us] 67.5 [in_us] eCW1 ([facility]) Deprecated Oxygen saturation in Capillary blood by Oximetry 97 % 97 % eCW1 ([facility]) Respiratory rate 18 /min 18 /min eCW1 ([facility]) Heart rate 69 /min 69 /min eCW1 ([facility]) Body temperature 98.2 [degF] 98.2 [degF] eCW1 ( [facility]) Body mass index (BMI) [Ratio] 41.20 kg/m2 41.20 kg/m2 eCW1 ([facility]) Body weight Measured 267.0 [lb_av] 267.0 [lb_av ] eCW1 ([facility]) Body height 67.5 [in_us] 67.5 [in_us] eCW1 ([facility]) Diastolic blood pressure 94 mm[Hg] 94 mm[Hg] eCW1 ([facility]) Systolic blood pressure 191 mm[Hg] 191 mm[Hg] e CW1 ([facility]) Body temperature 98.1 [degF] 98.1 [degF] eCW1 ( [facility]) Respiratory rate 18 /min 18 /min eCW1 ([facility]) Heart rate 72 /min 72 /min eCW1 ([facility]) Body mass index (BMI) [Ratio] 40.76 kg/m2 40.76 kg/m2 eCW1 ([facility]) Body height 67.5 [in_us] 67.5 [in_us] eCW1 ([facility]) Body weight Measured 264.2 [lb_av] 264.2 [lb_av ] eCW1 ([facility]) Diastolic blood pressure 100 mm[Hg] 100 mm[Hg] eCW1 ([facility]) Systolic blood pressure 180 mm[Hg] 180 mm[Hg] e CW1 ([facility]) Body temperature 96.0 [degF] 96.0 [degF] eCW1 ( [facility]) Respiratory rate 18 /min 18 /min eCW1 ([facility]) Heart rate 96.0 /min 96.0 /min eCW1 ([facility]) Body mass index (BMI) [Ratio] 40.70 kg/m2 40.70 kg/m2 eCW1 ([facility]) Body height 67.5 [in_us] 67.5 [in_us] eCW1 ([facility]) Body weight Measured 263.8 [lb_av] 263.8 [lb_av ] eCW1 ([facility]) ID Date Data Source [id number] 03/29[facility]2020 [facility] Value Range Interpretation Code Description Data Source(s) WEIGHT RECORDED 271.6 lb 271.6 lb [facility] Body height Measured 68 in 68 in [facility] WEIGHT RECORDED 271.17 lb 271.17 lb [facility] WEIGHT RECORDED 272.05 lb 272.05 lb [facility] WEIGHT RECORDED 307 lb 307 lb [facility] WEIGHT RECORDED 276.68 lb 276.68 lb [facility] WEIGHT RECORDED 276.68 lb 276.68 lb [facility] WEIGHT RECORDED 283.51 lb 283.51 lb [facility] Body height Measured 70 in 70 in [facility] WEIGHT RECORDED 283.4 lb 283.4 lb [facility] WEIGHT RECORDED 267 lb 267 lb [facility] TRANSFER FROM [facility] WEIGHT RECORDED 267 lb 267 lb [facility] ID Date Data Source [id number] 12/13/2019 04:50:[address] [facility] Name Value Range Interpretation Code Description Data Source(s) WEIGHT RECORDED 242.51 lb 242.51 lb [facility] Body height Measured 70.87 in 70.87 in [facility] Patient Treatment Plan of Care Planned Activity Planned Date Details Description Data Source (s) Nebulizer - 06/25/2020 12:00:00 AM EST e CW1 ([facility]) Nebulizer - 06/25/2020 12:00:00 AM EST e CW1 ([facility]) Nebulizer - 06/25/2020 12:00:00 AM EST e CW1 ([facility]) Nebulizer - 06/25/2020 12:00:00 AM EST e CW1 ([facility]) Nebulizer - 06/25/2020 12:00:00 AM EST e CW1 ([facility]) Nebulizer - 06/25/2020 12:00:00 AM EST e CW1 ([facility]) Nebulizer - 06/25/2020 12:00:00 AM EST e CW1 ([facility]) Nebulizer - 06/25/2020 12:00:00 AM EST e CW1 ([facility]) Nebulizer - 06/25/2020 12:00:00 AM EST e CW1 ([facility]) Nebulizer - 06/25/2020 12:00:00 AM EST e CW1 ([facility]) ANNABELLE LIFT - 06/19/2020 12:00:00 AM EST e CW1 ([facility]) ANNABELLE LIFT - 06/19/2020 12:00:00 AM EST e CW1 ([facility]) ANNABELLE LIFT - 06/19/2020 12:00:00 AM EST e CW1 ([facility]) ANNABELLE LIFT - 06/19/2020 12:00:00 AM EST e CW1 ([facility]) ANNABELLE LIFT - 06/19/2020 12:00:00 AM EST e CW1 ([facility]) ANNABELLE LIFT - 06/19/2020 12:00:00 AM EST e CW1 ([facility]) ANNABELLE LIFT - 06/19/2020 12:00:00 AM EST e CW1 ([facility]) ANNABELLE LIFT - 06/19/2020 12:00:00 AM EST e CW1 ([facility]) ANNABELLE LIFT - 06/19/2020 12:00:00 AM EST e CW1 ([facility]) ANNABELLE LIFT - 06/19/2020 12:00:00 AM EST e CW1 ([facility]) ANNABELLE LIFT - 06/19/2020 12:00:00 AM EST e CW1 ([facility]) ANNABELLE LIFT - 06/19/2020 12:00:00 AM EST e CW1 ([facility]) Blood Pressure Kit - 05/08/2020 12:00:00 AM EST eCW1 ([facility]) Trapeze - 03/08/2020 12:00:00 AM EDT e CW1 ([facility]) ALTERNATING PRESSURE MATTRESS - 03/08/2020 12:00:00 AM EDT eCW1 ([facility]) Incontinence Brief Large - 03/07/2020 12:00:00 AM EDT eCW1 ([facility]) ALTERNATING PRESSURE MATTRESS - 03/07/2020 12:00:00 AM EDT eCW1 ([facility]) Incontinence Brief Large - 03/07/2020 12:00:00 AM EDT eCW1 ([facility]) ALTERNATING PRESSURE MATTRESS - 03/07/2020 12:00:00 AM EDT eCW1 ([facility]) Incontinence Brief Large - 03/07/2020 12:00:00 AM EDT eCW1 ([facility]) Optifoam 4"X4" 03/06/2020 12:00:00 AM EDT eCW1 ([facility]) 4x4 03/06/2020 12:00:00 AM EDT e CW1 ([facility]) Tracheostomy Care - 03/06/2020 12:00:00 AM EDT eCW1 ([facility]) Optifoam 4"X4" 03/06/2020 12:00:00 AM EDT eCW1 ([facility]) Tracheostomy Care - 03/06/2020 12:00:00 AM EDT eCW1 ([facility]) Curity Wood Catheter Tray - 03/06/2020 12:00:00 AM EDT eCW1 ([facility]) Gastrostomy care - 03/06/2020 12:00:00 AM EDT eCW1 ([facility]) 4x4 03/06/2020 12:00:00 AM EDT e CW1 ([facility]) Optifoam 4"X4" 03/06/2020 12:00:00 AM EDT eCW1 ([facility]) Tracheostomy Care - 03/06/2020 12:00:00 AM EDT eCW1 ([facility]) Curity Wood Catheter Tray - 03/06/2020 12:00:00 AM EDT eCW1 ([facility]) Gastrostomy care - 03/06/2020 12:00:00 AM EDT eCW1 ([facility]) 4x4 03/06/2020 12:00:00 AM EDT e CW1 ([facility]) Optifoam 4"X4" 03/06/2020 12:00:00 AM EDT eCW1 ([facility]) Tracheostomy Care - 03/06/2020 12:00:00 AM EDT eCW1 ([facility]) Curity Wood Catheter Tray - 03/06/2020 12:00:00 AM EDT eCW1 ([facility]) Optifoam 4"X4" 03/06/2020 12:00:00 AM EDT eCW1 ([facility]) Curity Wood Catheter Tray - 03/06/2020 12:00:00 AM EDT eCW1 ([facility]) 4x4 03/06/2020 12:00:00 AM EDT e CW1 ([facility]) Gastrostomy care - 03/06/2020 12:00:00 AM EDT eCW1 ([facility]) Tracheostomy Care - 03/06/2020 12:00:00 AM EDT eCW1 ([facility]) Optifoam 4"X4" 03/06/2020 12:00:00 AM EDT eCW1 ([facility]) Curity Wood Catheter Tray - 03/06/2020 12:00:00 AM EDT eCW1 ([facility]) 4x4 03/06/2020 12:00:00 AM EDT e CW1 ([facility]) Gastrostomy care - 03/06/2020 12:00:00 AM EDT eCW1 ([facility]) Tracheostomy Care - 03/06/2020 12:00:00 AM EDT eCW1 ([facility]) Gastrostomy care - 03/06/2020 12:00:00 AM EDT eCW1 ([facility]) 4x4 03/06/2020 12:00:00 AM EDT e CW1 ([facility]) Melatonin 5 MG 03/02/2020 01:00:00 AM EDT NETSMART ([facility]) Nystatin Powder 03/02/2020 01:00:00 AM EDT NETSMART ([facility]) Metoclopramide HCl 5 MG 03/02/2020 01:00:00 AM EDT NETSMART ([facility]) Methocarbamol 500 MG 03/02/2020 01:00:00 AM EDT NETSMART ([facility]) Ipratropium-Albuterol 0.5-2.5 (3) MG/3ML 03/02/2020 01:00:00 AM EDT NETSMART ([facility]) hydrOXYzine HCl 25 MG 03/02/2020 01:00:00 AM EDT NETSMART ([facility]) PredniSONE 5 MG 03/02/2020 01:00:00 AM EDT NETSMART ([facility]) predniSONE 10 MG 03/02/2020 01:00:00 AM EDT NETSMART ([facility]) GuaiFENesin 100 MG/5ML 03/02/2020 01:00:00 AM EDT NETSMART ([facility]) Docusate Sodium 283 MG 03/02/2020 01:00:00 AM EDT NETSMART ([facility]) Diclofenac Sodium 1 % 03/02/2020 01:00:00 AM EDT NETSMART ([facility]) Acetaminophen 325 MG 03/02/2020 01:00:00 AM EDT NETSMART ([facility]) Sennosides 8.6 MG 03/02/2020 01:00:00 AM EDT [facility]SMART ([facility]) Meloxicam 7.5 MG 03/02/2020 01:00:00 AM EDT NETSMART ([facility]) Hydroxychloroquine Sulfate 200 MG 03/02/2020 01:00:00 AM EDT NETSMART ([facility]) Gabapentin (Once-Daily) 600 MG 03/02/2020 01:00:00 AM EDT NETSMART ([facility]) DULoxetine HCl 60 MG 03/02/2020 01:00:00 AM EDT NETSMART ([facility]) Docusate Sodium 100 MG 03/02/2020 01:00:00 AM EDT NETSMART ([facility]) Buprenorphine HCl-Naloxone HCl 4-1 MG 03/02/2020 01:00:00 AM [facility] ([facility]) Atenolol 25 MG 03/02/2020 01:00:00 AM [facility] ([facility]) Polyethylene Glycol 3350 17 GM 03/02/2020 01:00:00 AM [facility]) Propylene Glycol 0.6 % 03/02/2020 01:00:00 AM [facility]) gabapentin 600 MG Oral Tablet 02/17/2020 12:00:00 AM [facility] Atenolol 25 MG Oral Tablet 02/17/2020 12:00:00 AM [facility] Buprenorphine 4 MG / Naloxone 1 MG Oral Strip 02/17/2020 12:00:00 A M [facility] Buprenorphine 4 MG / Naloxone 1 MG Oral Strip 02/17/2020 12:00:00 A M [facility] duloxetine 60 MG Delayed Release Oral Capsule 02/17/2020 12:00:00 A M [facility] POLYETHYLENE GLYCOL 3350 142 MG/ML Oral Solution 02/17/2020 12:00:0 0 AM [facility] Hydroxychloroquine Sulfate 200 MG Oral Tablet 02/17/2020 12:00:00 A M [facility] meloxicam 7.5 MG Oral Tablet 02/17/2020 12:00:00 AM [facility] Prednisone 10 MG Oral Tablet 02/17/2020 12:00:00 AM [facility] Guaifenesin 20 MG/ML Oral Solution 02/16/2020 12:08:15 PM [facility] Nystatin 100 UNT/MG Topical Powder 02/16/2020 12:00:00 AM [facility] Melatonin 5 MG Oral Tablet 02/16/2020 12:00:00 AM [facility] Methocarbamol 500 MG Oral Tablet 02/16/2020 12:00:00 AM [facility] Acetaminophen 325 MG Oral Tablet 02/16/2020 12:00:00 AM [facility] Carboxymethylcellulose Sodium 5 MG/ML Ophthalmic Solut ion 02/16/2020 12:00:00 AM [facility] Diclofenac Sodium 0.01 MG/MG Topical Gel 02/16/2020 12:00:00 AM [facility] gabapentin 300 MG Oral Capsule 02/16/2020 12:00:00 AM [facility] Docusate Sodium 100 MG Oral Capsule 02/16/2020 12:00:00 AM [facility] Docusate Sodium 56.6 MG/ML Enema 02/16/2020 12:00:00 AM [facility] Guaifenesin 20 MG/ML Oral Solution 02/16/2020 12:00:00 AM [facility] Hydroxyzine Hydrochloride 25 MG Oral Tablet 02/16/2020 12:00:00 AM [facility] Albuterol 0.833 MG/ML / Ipratropium [place] 0.167 MG/M L Inhalant Solution 02/16/2020 12:00:[address] [facility] Metoclopramide 5 MG Oral Tablet 02/16/2020 12:00:00 AM [facility] Prednisone 5 MG Oral Tablet 02/16/2020 12:00:00 AM [facility].6 MG Oral Tablet 02/16/2020 12:00:00 AM [facility] Sodium Chloride 0.111 MEQ/ML Nasal Solution 02/15/2020 09:38:56 AM [facility] lidocaine (LIDODERM) 5 % patch 1 patch 12/20/2019 08:30:00 AM [facility] POLYETHYLENE GLYCOL 3350 142 MG/ML Oral Solution 12/14/2019 12:00:0 0 AM [facility] Lisinopril 10 MG Oral Tablet 12/14/2019 12:00:00 AM [facility] duloxetine 60 MG Delayed Release Oral Capsule 12/14/2019 12:00:00 A M [facility] Atenolol 25 MG Oral Tablet 12/14/2019 12:00:[address] [facility] 35.2 MG/ML Oral Solution 12/13/2019 12:00:00 AM [facility] Methocarbamol 500 MG Oral Tablet 12/13/2019 12:00:00 AM [facility] Melatonin 5 MG Oral Tablet 12/13/2019 12:00:00 AM [facility] Lidocaine 5 % External Patch (LIDODERM) 12/13/2019 12:00:00 AM [facility] insulin lispro 100 UNIT/ML SC injection HIGH DOSE TUBE CONT INSULIN patients 12/13/2019 12:00:[address] [facility] Insulin Glargine 100 UNT/ML Injectable Solution 12/13/2019 12:00:00 AM [facility] Ibuprofen 20 MG/ML Oral Suspension 12/13/2019 12:00:00 AM [facility] Diclofenac Sodium 0.01 MG/MG Topical Gel 12/13/2019 12:00:00 AM [facility] Carboxymethylcellulose Sodium 5 MG/ML Ophthalmic Solut ion 12/13/2019 12:00:00 AM [facility] Buprenorphine 2 MG / Naloxone 0.5 MG Oral Strip 12/13/2019 12:00:00 AM [facility] Bisacodyl 10 MG Rectal Suppository 12/13/2019 12:00:00 AM [facility] Acetaminophen 32 MG/ML Oral Solution 12/13/2019 12:00:00 AM [facility] gabapentin 50 MG/ML Oral Solution 12/13/2019 12:00:00 AM [facility] POLYETHYLENE GLYCOL 3350 142 MG/ML Oral Solution 12/12/2019 09:00:0 0 AM [facility] dextrose 50 % IV solution 50 mL 12/11/2019 11:21:53 PM [facility] albuterol (PROVENTIL HFA) inhaler 2 puff 12/09/2019 04:56:48 AM [facility] propofol (DIPRIVAN) 1000 MG/100ML infusion 11/07/2019 03:21:26 PM [facility] Succinylcholine Chloride 20 MG/ML Injectable Solution 11/07/2019 03:17:18 PM [facility] 2 ML Midazolam 1 MG/ML Injection 11/07/2019 03:17:09 PM [facility] fentaNYL (SUBLIMAZE) 100 MCG/2ML (PF) injection 11/07/2019 03:16:58 PM [facility] Glucagon 1 MG Injection 11/03/2019 09:49:40 AM [facility] Acetaminophen 325 MG / Oxycodone Hydrochloride 7.5 MG Oral Tablet 11/01/2019 12:00:00 AM [place] [id number] ([facility]) Acetaminophen 325 MG / Oxycodone Hydrochloride 7.5 MG Oral Tablet 11/01/2019 12:00:00 AM EDT eCW1 ([facility]) Acetaminophen 325 MG / Oxycodone Hydrochloride 7.5 MG Oral Tablet 11/01/2019 12:00:00 AM EDT eCW1 ([facility]) Acetaminophen 325 MG / Oxycodone Hydrochloride 7.5 MG Oral Tablet 11/01/2019 12:00:00 AM EDT eCW1 ([facility]) Acetaminophen 325 MG / Oxycodone Hydrochloride 7.5 MG Oral Tablet 11/01/2019 12:00:00 AM EDT eCW1 ([facility]) Acetaminophen 325 MG / Oxycodone Hydrochloride 7.5 MG Oral Tablet 11/01/2019 12:00:00 AM EDT eCW1 ([facility]) Magnesium 400 MG 09/27/2019 12:00:00 AM EDT eCW1 ([facility]) Prednisone 10 MG Oral Tablet 09/27/2019 12:00:00 AM EDT eCW1 ([facility]) Acetaminophen 325 MG Oral Tablet [Tylenol] 09/27/2019 12:00:00 AM E DT eCW1 ([facility]) Capsaicin 0.52393 MG/MG / Lidocaine Hydr ochloride 0.005 MG/MG / Menthol 0.05 MG/MG / methyl salicylate 0.2 MG/MG Transdermal Patch 09/27/2019 12:00:00 AM EDT eCW1 ([facility]) Magnesium 400 MG 09/27/2019 12:00:00 AM EDT eCW1 ([facility]) Prednisone 20 MG Oral Tablet 09/27/2019 12:00:00 AM EDT eCW1 ([facility]) Acetaminophen 325 MG / Oxycodone Hydrochloride 7.5 MG Oral Tablet 09/27/2019 12:00:00 AM EDT eCW1 ([facility]) Acetaminophen 325 MG / Oxycodone Hydrochloride 7.5 MG Oral Tablet 09/02/2019 12:00:00 AM EDT eCW1 ([facility]) Phenazopyridine hydrochloride 200 MG Oral Tablet [Pyri dium] 08/16/2019 12:00:00 AM EDT eCW1 ([facility]) Phenazopyridine hydrochloride 200 MG Oral Tablet [Pyri dium] 08/15/2019 12:00:00 AM EDT eCW1 ([facility]) Acetaminophen 325 MG / Oxycodone Hydrochloride 7.5 MG Oral Tablet 08/02/2019 12:00:00 AM EST eCW1 ([facility]) Levothyroxine Sodium 0.025 MG Oral Tablet 07/22/2019 12:00:00 AM ES T eCW1 ([facility]) Metformin hydrochloride 500 MG Oral Tablet 07/22/2019 12:00:[address] eCW1 ([facility]) Vitamin D3 50 MCG (1999) 07/20/2019 12:00:00 AM EST eCW1 ([facility]) Acetaminophen 325 MG / Oxycodone Hydrochloride 7.5 MG Oral Tablet 07/05/2019 12:00:00 AM EST eCW1 ([facility]) Acetaminophen 325 MG / Oxycodone Hydrochloride 7.5 MG Oral Tablet 06/08/2019 12:00:00 AM EST eCW1 ([facility]) Hydrochlorothiazide 25 MG Oral Tablet [facility] tizanidine 4 MG Oral Tablet [facility] Acetaminophen 325 MG / Oxycodone Hydrochloride 7.5 MG Oral Tablet [facility] Lisinopril 10 MG Oral Tablet [facility] gabapentin 600 MG Oral Tablet [facility] duloxetine 60 MG Delayed Release Oral Capsule [facility] Atenolol 25 MG Oral Tablet [facility]
[2020-07-13] MEDS ORDERED: CEFEPIME HCL 1 GM in D5W MINI-BAG PLUS 50 ML IV ONE (17:30)
--- NOTE | 2020-07-13 17:30 | REPVR ---
PROCEDURE INFORMATION: Exam: CT Head Without Contrast Exam date and time: 07/13/2020 5:09 PM Age: 64 years old Clinical indication: Altered mental status/memory loss; Additional info: AMS TECHNIQUE: Imaging protocol: Computed tomography of the head without contrast. Radiation optimization: All CT scans at this facility use at least one of these dose optimization techniques: automated exposure control; mA and/or kV adjustment per patient size (includes targeted exams where dose is matched to clinical indication); or iterative reconstruction. COMPARISON: CT Head without contrast 05/30/2019 3:50 AM FINDINGS: Brain: Moderate hypoattenuating foci are noted in the cerebral, posterior superior periatrial and anterior lateral ventricular periventricular white matter bilaterally. No intracranial hemorrhage. No mass or acute cortical infarction identified. Ventricles: No hydrocephalus or evidence of increased intracranial pressure. Prominence of the subarachnoid spaces is consistent with the patient's age of 64 years. Bones/joints: No acute abnormality identified. No acute fracture. Paranasal sinuses: Visualized sinuses are unremarkable. No fluid levels. Mastoid air cells: Visualized mastoid air cells are well aerated. Vasculature: Atherosclerotic calcifications are present involving the carotid artery siphons bilaterally. Soft tissues: Unremarkable. IMPRESSION: 1. Age appropriate supratentorial and infratentorial atrophy. 2. Moderate chronic nonspecific white matter disease, interval progression. 3. No acute intracranial abnormality identified. Electronically signed by: Laci Nunes On 07/13/2020 17:30:33 PM
[2020-07-13] MEDS ORDERED: LEVO50TA45 PO (18:12)
[2020-07-13] MEDS ORDERED: METH-1164 PO (18:12)
[2020-07-13] MEDS ORDERED: MOBI4TAB PO (18:12)
[2020-07-13] MEDS ORDERED: FERR32TA PO (18:12)
[2020-07-13] MEDS ORDERED: ASPI81TA26 PO (18:12)
[2020-07-13] MEDS ORDERED: FOLI1TAB11 PO (18:12)
[2020-07-13] MEDS ORDERED: FURO40TA2 PO (18:12)
[2020-07-13] MEDS ORDERED: DULO60CA35 PO (18:12)
[2020-07-13] MEDS ORDERED: ATOR40TA75 PO (18:12)
[2020-07-13] MEDS ORDERED: MIRA3350 PO (18:21)
[2020-07-13] MEDS ORDERED: COLA100C5 PO (18:21)
[2020-07-13] MEDS ORDERED: MELA3TAB30 PO (18:21)
[2020-07-13] MEDS ORDERED: ZOFR4TAB16 PO (18:21)
[2020-07-13] MEDS ORDERED: GABA600T4 PO (18:21)
[2020-07-13] MEDS ORDERED: RA S8.6T3 PO (18:21)
[2020-07-13] MEDS ORDERED: METO5TAB2 PO (18:21)
[2020-07-13] MEDS ORDERED: VITA250T7 PO (18:21)
[2020-07-13] MEDS ORDERED: PATIENT COMMENT (18:22)
[2020-07-13] MEDS ORDERED: TIZA1TAB12 PO (18:42)
--- OUTSIDE RECORDS SUMMARY | 2020-07-13 19:41 | CCD ---
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 ([facility]) Pneumococcal conjugate PCV 13 05/08/2020 04:03:00 PM EST completed eCW1 ([facility]) Tdap 11/02/2019 12:00:00 AM EDT completed Tdap 11/02/2019 [facility] Medications Medication Brand Name Start Date Product Form Dose Route Admi nistrative Instructions Pharmacy Instructions Status Indications Reaction Description Data Source(s) Nebulizer - Nebulizer - 06/25/2020 12:00:00 AM EST active Nebulizer - eCW1 ([facility]) Nebulizer - Nebulizer - 06/25/2020 12:00:00 AM EST active Nebulizer - eCW1 ([facility]) Nebulizer - Nebulizer - 06/25/2020 12:00:00 AM EST active Nebulizer - eCW1 ([facility]) Nebulizer - Nebulizer - 06/25/2020 12:00:00 AM EST active Nebulizer - eCW1 ([facility]) Nebulizer - Nebulizer - 06/25/2020 12:00:00 AM EST active Nebulizer - eCW1 ([facility]) Nebulizer - Nebulizer - 06/25/2020 12:00:00 AM EST active Nebulizer - eCW1 ([facility]) Nebulizer - Nebulizer - 06/25/2020 12:00:00 AM EST active Nebulizer - eCW1 ([facility]) Nebulizer - Nebulizer - 06/25/2020 12:00:00 AM EST active Nebulizer - eCW1 ([facility]) Nebulizer - Nebulizer - 06/25/2020 12:00:00 AM EST active Nebulizer - eCW1 ([facility]) Nebulizer - Nebulizer - 06/25/2020 12:00:00 AM EST active Nebulizer - eCW1 ([facility]) ANNABELLE LIFT - UNK 06/19/2020 12:00:00 AM EST activ e ANNABELLE LIFT - eCW1 ([facility]) ANNABELLE LIFT - UNK 06/19/2020 12:00:00 AM EST activ e ANNABELLE LIFT - eCW1 ([facility]) ANNABELLE LIFT - UNK 06/19/2020 12:00:00 AM EST activ e ANNABELLE LIFT - eCW1 ([facility]) ANNABELLE LIFT - UNK 06/19/2020 12:00:00 AM EST activ e ANNABELLE LIFT - eCW1 ([facility]) ANNABELLE LIFT - UNK 06/19/2020 12:00:00 AM EST activ e ANNABELLE LIFT - eCW1 ([facility]) ANNABELLE LIFT - UNK 06/19/2020 12:00:00 AM EST activ e ANNABELLE LIFT - eCW1 ([facility]) ANNABELLE LIFT - UNK 06/19/2020 12:00:00 AM EST activ e ANNABELLE LIFT - eCW1 ([facility]) ANNABELLE LIFT - UNK 06/19/2020 12:00:00 AM EST activ e ANNABELLE LIFT - eCW1 ([facility]) ANNABELLE LIFT - UNK 06/19/2020 12:00:00 AM EST activ e ANNABELLE LIFT - eCW1 ([facility]) ANNABELLE LIFT - UNK 06/19/2020 12:00:00 AM EST activ e ANNABELLE LIFT - eCW1 ([facility]) ANNABELLE LIFT - UNK 06/19/2020 12:00:00 AM EST activ e ANNABELLE LIFT - eCW1 ([facility]) ANNABELLE LIFT - UNK 06/19/2020 12:00:00 AM EST activ e ANNABELLE LIFT - eCW1 ([facility]) Blood Pressure Kit - Blood Pressure Kit - 05/08/2020 12:00:00 AM EST active Blood Pressure Kit - eCW1 ([facility]) Blood Pressure Kit - Blood Pressure Kit - 05/08/2020 12:00:00 AM EST suspended Blood Pressure Kit - eCW1 ([facility]) Blood Pressure Kit - Blood Pressure Kit - 05/08/2020 12:00:00 AM EST suspended Blood Pressure Kit - eCW1 ([facility]) Blood Pressure Kit - Blood Pressure Kit - 05/08/2020 12:00:00 AM EST suspended Blood Pressure Kit - eCW1 ([facility]) Blood Pressure Kit - Blood Pressure Kit - 05/08/2020 12:00:00 AM EST suspended Blood Pressure Kit - eCW1 ([facility]) Blood Pressure Kit - Blood Pressure Kit - 05/08/2020 12:00:00 AM EST suspended Blood Pressure Kit - eCW1 ([facility]) Blood Pressure Kit - Blood Pressure Kit - 05/08/2020 12:00:00 AM EST suspended Blood Pressure Kit - eCW1 ([facility]) Blood Pressure Kit - Blood Pressure Kit - 05/08/2020 12:00:00 AM EST suspended Blood Pressure Kit - eCW1 ([facility]) Blood Pressure Kit - Blood Pressure Kit - 05/08/2020 12:00:00 AM EST suspended Blood Pressure Kit - eCW1 ([facility]) Blood Pressure Kit - Blood Pressure Kit - 05/08/2020 12:00:00 AM EST suspended Blood Pressure Kit - eCW1 ([facility]) Blood Pressure Kit - Blood Pressure Kit - 05/08/2020 12:00:00 AM EST suspended Blood Pressure Kit - eCW1 ([facility]) Blood Pressure Kit - Blood Pressure Kit - 05/08/2020 12:00:00 AM EST suspended Blood Pressure Kit - eCW1 ([facility]) Blood Pressure Kit - Blood Pressure Kit - 05/08/2020 12:00:00 AM EST suspended Blood Pressure Kit - eCW1 ([facility]) Blood Pressure Kit - Blood Pressure Kit - 05/08/2020 12:00:00 AM EST suspended Blood Pressure Kit - eCW1 ([facility]) Blood Pressure Kit - Blood Pressure Kit - 05/08/2020 12:00:00 AM EST suspended Blood Pressure Kit - eCW1 ([facility]) Blood Pressure Kit - Blood Pressure Kit - 05/08/2020 12:00:00 AM EST suspended Blood Pressure Kit - eCW1 ([facility]) Blood Pressure Kit - Blood Pressure Kit - 05/08/2020 12:00:00 AM EST suspended Blood Pressure Kit - eCW1 ([facility]) Blood Pressure Kit - Blood Pressure Kit - 05/08/2020 12:00:00 AM EST suspended Blood Pressure Kit - eCW1 ([facility]) Blood Pressure Kit - Blood Pressure Kit - 05/08/2020 12:00:00 AM EST suspended Blood Pressure Kit - eCW1 ([facility]) Blood Pressure Kit - Blood Pressure Kit - 05/08/2020 12:00:00 AM EST suspended Blood Pressure Kit - eCW1 ([facility]) Blood Pressure Kit - Blood Pressure Kit - 05/08/2020 12:00:00 AM EST suspended Blood Pressure Kit - eCW1 ([facility]) Blood Pressure Kit - Blood Pressure Kit - 05/08/2020 12:00:00 AM EST suspended Blood Pressure Kit - eCW1 ([facility]) Blood Pressure Kit - Blood Pressure Kit - 05/08/2020 12:00:00 AM EST suspended Blood Pressure Kit - eCW1 ([facility]) Blood Pressure Kit - Blood Pressure Kit - 05/08/2020 12:00:00 AM EST suspended Blood Pressure Kit - eCW1 ([facility]) Blood Pressure Kit - Blood Pressure Kit - 05/08/2020 12:00:00 AM EST suspended Blood Pressure Kit - eCW1 ([facility]) ALTERNATING PRESSURE MATTRESS - UNK 03/08/2020 12:00:00 AM EDT suspended ALTERNATING PRESSURE MATTRESS - eCW1 ([facility]) Trapeze - UNK 03/08/2020 12:00:00 AM EDT suspende d Trapeze - eCW1 ([facility]) ALTERNATING PRESSURE MATTRESS - UNK 03/08/2020 12:00:00 AM EDT suspended ALTERNATING PRESSURE MATTRESS - eCW1 ([facility]) Trapeze - UNK 03/08/2020 12:00:00 AM EDT active Trapeze - eCW1 ([facility]) Trapeze - UNK 03/08/2020 12:00:00 AM EDT suspende d Trapeze - eCW1 ([facility]) ALTERNATING PRESSURE MATTRESS - UNK 03/08/2020 12:00:00 AM EDT suspended ALTERNATING PRESSURE MATTRESS - eCW1 ([facility]) ALTERNATING PRESSURE MATTRESS - UNK 03/08/2020 12:00:00 AM EDT suspended ALTERNATING PRESSURE MATTRESS - eCW1 ([facility]) ALTERNATING PRESSURE MATTRESS - UNK 03/08/2020 12:00:00 AM EDT active ALTERNATING PRESSURE MATTRESS - eCW1 ([facility] [place]) Trapeze - UNK 03/08/2020 12:00:00 AM EDT suspende d Trapeze - eCW1 ([facility]) ALTERNATING PRESSURE MATTRESS - UNK 03/08/2020 12:00:00 AM EDT suspended ALTERNATING PRESSURE MATTRESS - eCW1 ([facility]) ALTERNATING PRESSURE MATTRESS - UNK 03/08/2020 12:00:00 AM EDT suspended ALTERNATING PRESSURE MATTRESS - eCW1 ([facility]) Trapeze - UNK 03/08/2020 12:00:00 AM EDT suspende d Trapeze - eCW1 ([facility]) ALTERNATING PRESSURE MATTRESS - UNK 03/08/2020 12:00:00 AM EDT suspended ALTERNATING PRESSURE MATTRESS - eCW1 ([facility]) ALTERNATING PRESSURE MATTRESS - UNK 03/08/2020 12:00:00 AM EDT suspended ALTERNATING PRESSURE MATTRESS - eCW1 ([facility]) ALTERNATING PRESSURE MATTRESS - UNK 03/08/2020 12:00:00 AM EDT suspended ALTERNATING PRESSURE MATTRESS - eCW1 ([facility]) Trapeze - UNK 03/08/2020 12:00:00 AM EDT suspende d Trapeze - eCW1 ([facility]) ALTERNATING PRESSURE MATTRESS - UNK 03/08/2020 12:00:00 AM EDT suspended ALTERNATING PRESSURE MATTRESS - eCW1 ([facility]) Trapeze - UNK 03/08/2020 12:00:00 AM EDT suspende d Trapeze - eCW1 ([facility]) Trapeze - UNK 03/08/2020 12:00:00 AM EDT suspende d Trapeze - eCW1 ([facility]) Trapeze - UNK 03/08/2020 12:00:00 AM EDT suspende d Trapeze - eCW1 ([facility]) Trapeze - UNK 03/08/2020 12:00:00 AM EDT suspende d Trapeze - eCW1 ([facility]) Trapeze - UNK 03/08/2020 12:00:00 AM EDT suspende d Trapeze - eCW1 ([facility]) Trapeze - UNK 03/08/2020 12:00:00 AM EDT suspende d Trapeze - eCW1 ([facility]) Trapeze - UNK 03/08/2020 12:00:00 AM EDT suspende d Trapeze - eCW1 ([facility]) ALTERNATING PRESSURE MATTRESS - UNK 03/08/2020 12:00:00 AM EDT suspended ALTERNATING PRESSURE MATTRESS - eCW1 ([facility]) ALTERNATING PRESSURE MATTRESS - UNK 03/08/2020 12:00:00 AM EDT suspended ALTERNATING PRESSURE MATTRESS - eCW1 ([facility]) ALTERNATING PRESSURE MATTRESS - UNK 03/08/2020 12:00:00 AM EDT suspended ALTERNATING PRESSURE MATTRESS - eCW1 ([facility]) ALTERNATING PRESSURE MATTRESS - UNK 03/08/2020 12:00:00 AM EDT suspended ALTERNATING PRESSURE MATTRESS - eCW1 ([facility]) ALTERNATING PRESSURE MATTRESS - UNK 03/08/2020 12:00:00 AM EDT suspended ALTERNATING PRESSURE MATTRESS - eCW1 ([facility]) Trapeze - UNK 03/08/2020 12:00:00 AM EDT suspende d Trapeze - eCW1 ([facility]) ALTERNATING PRESSURE MATTRESS - UNK 03/08/2020 12:00:00 AM EDT suspended ALTERNATING PRESSURE MATTRESS - eCW1 ([facility]) ALTERNATING PRESSURE MATTRESS - UNK 03/08/2020 12:00:00 AM EDT active ALTERNATING PRESSURE MATTRESS - eCW1 ([facility] [place]) ALTERNATING PRESSURE MATTRESS - UNK 03/08/2020 12:00:00 AM EDT suspended ALTERNATING PRESSURE MATTRESS - eCW1 ([facility]) Trapeze - UNK 03/08/2020 12:00:00 AM EDT active Trapeze - eCW1 ([facility]) ALTERNATING PRESSURE MATTRESS - UNK 03/08/2020 12:00:00 AM EDT suspended ALTERNATING PRESSURE MATTRESS - eCW1 ([facility]) ALTERNATING PRESSURE MATTRESS - UNK 03/08/2020 12:00:00 AM EDT active ALTERNATING PRESSURE MATTRESS - eCW1 ([facility]) Trapeze - UNK 03/08/2020 12:00:00 AM EDT active Trapeze - eCW1 ([facility]) Trapeze - UNK 03/08/2020 12:00:00 AM EDT suspende d Trapeze - eCW1 ([facility]) Trapeze - UNK 03/08/2020 12:00:00 AM EDT suspende d Trapeze - eCW1 ([facility]) Trapeze - UNK 03/08/2020 12:00:00 AM EDT suspende d Trapeze - eCW1 ([facility]) Trapeze - UNK 03/08/2020 12:00:00 AM EDT suspende d Trapeze - eCW1 ([facility]) ALTERNATING PRESSURE MATTRESS - UNK 03/08/2020 12:00:00 AM EDT suspended ALTERNATING PRESSURE MATTRESS - eCW1 ([facility]) Trapeze - UNK 03/08/2020 12:00:00 AM EDT suspende d Trapeze - eCW1 ([facility]) Trapeze - UNK 03/08/2020 12:00:00 AM EDT suspende d Trapeze - eCW1 ([facility]) ALTERNATING PRESSURE MATTRESS - UNK 03/08/2020 12:00:00 AM EDT suspended ALTERNATING PRESSURE MATTRESS - eCW1 ([facility]) Trapeze - UNK 03/08/2020 12:00:00 AM EDT suspende d Trapeze - eCW1 ([facility]) ALTERNATING PRESSURE MATTRESS - UNK 03/08/2020 12:00:00 AM EDT suspended ALTERNATING PRESSURE MATTRESS - eCW1 ([facility]) Trapeze - UNK 03/08/2020 12:00:00 AM EDT suspende d Trapeze - eCW1 ([facility]) ALTERNATING PRESSURE MATTRESS - UNK 03/08/2020 12:00:00 AM EDT suspended ALTERNATING PRESSURE MATTRESS - eCW1 ([facility]) Trapeze - UNK 03/08/2020 12:00:00 AM EDT suspende d Trapeze - eCW1 ([facility]) Trapeze - UNK 03/08/2020 12:00:00 AM EDT suspende d Trapeze - eCW1 ([facility]) ALTERNATING PRESSURE MATTRESS - UNK 03/08/2020 12:00:00 AM EDT suspended ALTERNATING PRESSURE MATTRESS - eCW1 ([facility]) ALTERNATING PRESSURE MATTRESS - UNK 03/08/2020 12:00:00 AM EDT suspended ALTERNATING PRESSURE MATTRESS - eCW1 ([facility]) Trapeze - UNK 03/08/2020 12:00:00 AM EDT suspende d Trapeze - eCW1 ([facility]) Incontinence Brief Large - Incontinence Brief Large - 2019 12:00:00 AM EDT active Incontinence Brie f Large - eCW1 ([facility]) Incontinence Brief Large - Incontinence Brief Large - 2019 12:00:00 AM EDT suspended Incontinence B rief Large - eCW1 ([facility]) Incontinence Brief Large - Incontinence Brief Large - 2019 12:00:00 AM EDT suspended Incontinence B rief Large - eCW1 ([facility]) Incontinence Brief Large - Incontinence Brief Large - 2019 12:00:00 AM EDT suspended Incontinence B rief Large - eCW1 ([facility]) Incontinence Brief Large - Incontinence Brief Large - 2019 12:00:00 AM EDT suspended Incontinence B rief Large - eCW1 ([facility]) Incontinence Brief Large - Incontinence Brief Large - 2019 12:00:00 AM EDT suspended Incontinence B rief Large - eCW1 ([facility]) ALTERNATING PRESSURE MATTRESS - UNK 03/07/2020 12:00:00 AM EDT active ALTERNATING PRESSURE MATTRESS - eCW1 ([facility] [place]) Incontinence Brief Large - Incontinence Brief Large - 2019 12:00:00 AM EDT suspended Incontinence B rief Large - eCW1 ([facility]) Incontinence Brief Large - Incontinence Brief Large - 2019 12:00:00 AM EDT suspended Incontinence B rief Large - eCW1 ([facility]) Incontinence Brief Large - Incontinence Brief Large - 2019 12:00:00 AM EDT suspended Incontinence B rief Large - eCW1 ([facility]) Incontinence Brief Large - Incontinence Brief Large - 2019 12:00:00 AM EDT suspended Incontinence B rief Large - eCW1 ([facility]) Incontinence Brief Large - Incontinence Brief Large - 2019 12:00:00 AM EDT active Incontinence Brie f Large - eCW1 ([facility]) Incontinence Brief Large - Incontinence Brief Large - 2019 12:00:00 AM EDT suspended Incontinence B rief Large - eCW1 ([facility]) Incontinence Brief Large - Incontinence Brief Large - 2019 12:00:00 AM EDT suspended Incontinence B rief Large - eCW1 ([facility]) Incontinence Brief Large - Incontinence Brief Large - 2019 12:00:00 AM EDT suspended Incontinence B rief Large - eCW1 ([facility]) Incontinence Brief Large - Incontinence Brief Large - 2019 12:00:00 AM EDT suspended Incontinence B rief Large - eCW1 ([facility]) Incontinence Brief Large - Incontinence Brief Large - 2019 12:00:00 AM EDT suspended Incontinence B rief Large - eCW1 ([facility]) Incontinence Brief Large - Incontinence Brief Large - 2019 12:00:00 AM EDT active Incontinence Brie f Large - eCW1 ([facility]) Incontinence Brief Large - Incontinence Brief Large - 2019 12:00:00 AM EDT suspended Incontinence B rief Large - eCW1 ([facility]) Incontinence Brief Large - Incontinence Brief Large - 2019 12:00:00 AM EDT suspended Incontinence B rief Large - eCW1 ([facility]) Incontinence Brief Large - Incontinence Brief Large - 2019 12:00:00 AM EDT suspended Incontinence B rief Large - eCW1 ([facility]) Incontinence Brief Large - Incontinence Brief Large - 2019 12:00:00 AM EDT suspended Incontinence B wief Large - eCW1 ([facility]) Incontinence Brief Large - Incontinence Brief Large - 2019 12:00:00 AM EDT suspended Incontinence B [facility] Large - eCW1 ([facility]) Incontinence Brief Large - Incontinence Brief Large - 2019 12:00:00 AM EDT active Incontinence Brie f Large - eCW1 ([facility]) Incontinence Brief Large - Incontinence Brief Large - 2019 12:00:00 AM EDT suspended Incontinence B wief Large - eCW1 ([facility]) Incontinence Brief Large - Incontinence Brief Large - 2019 12:00:00 AM EDT active Incontinence Brie f Large - eCW1 ([facility]) Incontinence Brief Large - Incontinence Brief Large - 2019 12:00:00 AM EDT suspended Incontinence B [facility] Large - eCW1 ([facility]) ALTERNATING PRESSURE MATTRESS - UNK 03/07/2020 12:00:00 AM EDT active ALTERNATING PRESSURE MATTRESS - eCW1 ([facility] [place]) Incontinence Brief Large - Incontinence Brief Large - 2019 12:00:00 AM EDT suspended Incontinence B wief Large - eCW1 ([facility]) Incontinence Brief Large - Incontinence Brief Large - 2019 12:00:00 AM EDT suspended Incontinence B [facility] Large - eCW1 ([facility]) Incontinence Brief Large - Incontinence Brief Large - 2019 12:00:00 AM EDT suspended Incontinence B [facility] Large - eCW1 ([facility]) Gastrostomy care - UNK 03/06/2020 12:00:00 AM EDT suspended Gastrostomy care - eCW1 ([facility]) Curity Wood Catheter Tray - Curity Wood Catheter Tray - 12:00:00 AM EDT suspended Curity Wood C atheter Tray - eCW1 ([facility]) Curity Wood Catheter Tray - Curity Wood Catheter Tray - 12:00:00 AM EDT active Curity Wood Cath eter Tray - eCW1 ([facility]) Gastrostomy care - UNK 03/06/2020 12:00:00 AM EDT active Gastrostomy care - eCW1 ([facility] [place]) Curity Wood Catheter Tray - Curity Wood Catheter Tray - 12:00:00 AM EDT suspended Curity Wood C atheter Tray - eCW1 ([facility]) 4x4 UNK 03/06/2020 12:00:00 AM EDT active 4x4 eCW1 ([facility]) Gastrostomy care - UNK 03/06/2020 12:00:00 AM EDT suspended Gastrostomy care - eCW1 ([facility] [place]) Gastrostomy care - UNK 03/06/2020 12:00:00 AM EDT active Gastrostomy care - eCW1 ([facility]) 4x4 UNK 03/06/2020 12:00:00 AM EDT active 4x4 eCW1 ([facility]) Curity Wood Catheter Tray - Curity Wood Catheter Tray - 12:00:00 AM EDT suspended Curity Wood C atheter Tray - eCW1 ([facility]) Curity Wood Catheter Tray - Curity Wood Catheter Tray - 12:00:00 AM EDT suspended Curity Wood C atheter Tray - eCW1 ([facility]) Gastrostomy care - UNK 03/06/2020 12:00:00 AM EDT suspended Gastrostomy care - eCW1 ([facility] [place]) Gastrostomy care - UNK 03/06/2020 12:00:00 AM EDT suspended Gastrostomy care - eCW1 ([facility] [place]) Curity Wood Catheter Tray - Curity Wood Catheter Tray - 12:00:00 AM EDT suspended Curity Wood C atheter Tray - eCW1 ([facility]) Gastrostomy care - UNK 03/06/2020 12:00:00 AM EDT suspended Gastrostomy care - eCW1 ([facility] [place]) Curity Wood Catheter Tray - Curity Wood Catheter Tray - 12:00:00 AM EDT active Curity Wood Cath eter Tray - eCW1 ([facility]) Gastrostomy care - UNK 03/06/2020 12:00:00 AM EDT active Gastrostomy care - eCW1 ([facility] [place]) Curity Wood Catheter Tray - Curity Wood Catheter Tray - 12:00:00 AM EDT suspended Curity Wood C atheter Tray - eCW1 ([facility]) 4x4 UNK 03/06/2020 12:00:00 AM EDT active 4x4 eCW1 ([facility]) Tracheostomy Care - UNK 03/06/2020 12:00:00 AM EDT active Tracheostomy Care - eCW1 ([facility] [place]) Gastrostomy care - UNK 03/06/2020 12:00:00 AM EDT suspended Gastrostomy care - eCW1 ([facility] [place]) Optifoam 4"X4" Optifoam 4"X4" 03/06/2020 12:00:00 AM EDT active Optifoam 4"X4" eCW1 ([facility] [place]) Curity Wood Catheter Tray - Curity Wood Catheter Tray - 12:00:00 AM EDT suspended Curity Wood C atheter Tray - eCW1 ([facility]) Gastrostomy care - UNK 03/06/2020 12:00:00 AM EDT suspended Gastrostomy care - eCW1 ([facility] [place]) Tracheostomy Care - UNK 03/06/2020 12:00:00 AM EDT active Tracheostomy Care - eCW1 ([facility] [place]) Tracheostomy Care - UNK 03/06/2020 12:00:00 AM EDT active Tracheostomy Care - eCW1 ([facility] [place]) Curity Wood Catheter Tray - Curity Wood Catheter Tray - 12:00:00 AM EDT suspended Curity Wood C atheter Tray - eCW1 ([facility]) Gastrostomy care - UNK 03/06/2020 12:00:00 AM EDT suspended Gastrostomy care - eCW1 ([facility] [place]) Optifoam 4"X4" Optifoam 4"X4" 03/06/2020 12:00:00 AM EDT active Optifoam 4"X4" eCW1 ([facility] [place]) Optifoam 4"X4" Optifoam 4"X4" 03/06/2020 12:00:00 AM EDT active Optifoam 4"X4" eCW1 ([facility] [place]) Tracheostomy Care - UNK 03/06/2020 12:00:00 AM EDT active Tracheostomy Care - eCW1 ([facility] [place]) Curity Wood Catheter Tray - Curity Wood Catheter Tray - 12:00:00 AM EDT suspended Curity Wood C atheter Tray - eCW1 ([facility]) Curity Wood Catheter Tray - Curity Wood Catheter Tray - 12:00:00 AM EDT active Curity Wood Cath eter Tray - eCW1 ([facility]) Gastrostomy care - UNK 03/06/2020 12:00:00 AM EDT suspended Gastrostomy care - eCW1 ([facility] [place]) Curity Wood Catheter Tray - Curity Wood Catheter Tray - 12:00:00 AM EDT suspended Curity Wood C atheter Tray - eCW1 ([facility]) Optifoam 4"X4" Optifoam 4"X4" 03/06/2020 12:00:00 AM EDT active Optifoam 4"X4" eCW1 ([facility] [place]) Tracheostomy Care - UNK 03/06/2020 12:00:00 AM EDT active Tracheostomy Care - eCW1 ([facility] [place]) 4x4 UNK 03/06/2020 12:00:00 AM EDT active 4x4 eCW1 ([facility]) Gastrostomy care - UNK 03/06/2020 12:00:00 AM EDT suspended Gastrostomy care - eCW1 ([facility] [place]) Optifoam 4"X4" Optifoam 4"X4" 03/06/2020 12:00:00 AM EDT active Optifoam 4"X4" eCW1 ([facility] [place]) Optifoam 4"X4" Optifoam 4"X4" 03/06/2020 12:00:00 AM EDT active Optifoam 4"X4" eCW1 ([facility] [place]) Curity Wood Catheter Tray - Curity Wood Catheter Tray - 12:00:00 AM EDT suspended Curity Wood C atheter Tray - eCW1 ([facility]) Gastrostomy care - UNK 03/06/2020 12:00:00 AM EDT active Gastrostomy care - eCW1 ([facility] [place]) Tracheostomy Care - UNK 03/06/2020 12:00:00 AM EDT active Tracheostomy Care - eCW1 ([facility] [place]) Curity Wood Catheter Tray - Curity Wood Catheter Tray - 12:00:00 AM EDT active Curity Wood Cath eter Tray - eCW1 ([facility]) Gastrostomy care - UNK 03/06/2020 12:00:00 AM EDT suspended Gastrostomy care - eCW1 ([facility] [place]) Gastrostomy care - UNK 03/06/2020 12:00:00 AM EDT suspended Gastrostomy care - eCW1 ([facility] [place]) Gastrostomy care - UNK 03/06/2020 12:00:00 AM EDT suspended Gastrostomy care - eCW1 ([facility] [place]) 4x4 UNK 03/06/2020 12:00:00 AM EDT active 4x4 eCW1 ([facility]) Tracheostomy Care - UNK 03/06/2020 12:00:00 AM EDT active Tracheostomy Care - eCW1 ([facility] [place]) Curity Wood Catheter Tray - Curity Wood Catheter Tray - 10 /10/2019 12:00:00 AM EDT suspended Curity Wood C atheter Tray - eCW1 ([facility]) Optifoam 4"X4" Optifoam 4"X4" 03/06/2020 12:00:00 AM EDT active Optifoam 4"X4" eCW1 ([facility] [place]) Gastrostomy care - UNK 03/06/2020 12:00:00 AM EDT suspended Gastrostomy care - eCW1 ([facility] [place]) Curity Wood Catheter Tray - Curity Wood Catheter Tray - 12:00:00 AM EDT suspended Curity Wood C atheter Tray - eCW1 ([facility]) Curity Wood Catheter Tray - Curity Wood Catheter Tray - 12:00:00 AM EDT suspended Curity Wood C atheter Tray - eCW1 ([facility]) 4x4 UNK 03/06/2020 12:00:00 AM EDT active 4x4 eCW1 ([facility]) Tracheostomy Care - UNK 03/06/2020 12:00:00 AM EDT active Tracheostomy Care - eCW1 ([facility] [place]) Curity Wood Catheter Tray - Curity Wood Catheter Tray - 12:00:00 AM EDT suspended Curity Wood C atheter Tray - eCW1 ([facility]) Gastrostomy care - UNK 03/06/2020 12:00:00 AM EDT suspended Gastrostomy care - eCW1 ([facility] [place]) Curity Wood Catheter Tray - Curity Wood Catheter Tray - 12:00:00 AM EDT suspended Curity Wood C atheter Tray - eCW1 ([facility]) Curity Wood Catheter Tray - Curity Wood Catheter Tray - 12:00:00 AM EDT active Curity Wood Cath eter Tray - eCW1 ([facility]) Gastrostomy care - UNK 03/06/2020 12:00:00 AM EDT suspended Gastrostomy care - eCW1 ([facility] [place]) Curity Wood Catheter Tray - Curity Wood Catheter Tray - 12:00:00 AM EDT suspended Curity Wood C atheter Tray - eCW1 ([facility]) Tracheostomy Care - UNK 03/06/2020 12:00:00 AM EDT active Tracheostomy Care - eCW1 ([facility] [place]) Optifoam 4"X4" Optifoam 4"X4" 03/06/2020 12:00:00 AM EDT active Optifoam 4"X4" eCW1 ([facility] [place]) 4x4 UNK 03/06/2020 12:00:00 AM EDT active 4x4 eCW1 ([facility]) 4x4 UNK 03/06/2020 12:00:00 AM EDT active 4x4 eCW1 ([facility]) Optifoam 4"X4" Optifoam 4"X4" 03/06/2020 12:00:00 AM EDT active Optifoam 4"X4" eCW1 ([facility] [place]) Optifoam 4"X4" Optifoam 4"X4" 03/06/2020 12:00:00 AM EDT active Optifoam 4"X4" eCW1 ([facility] [place]) Curity Wood Catheter Tray - Curity Wood Catheter Tray - 12:00:00 AM EDT suspended Curity Wood C atheter Tray - eCW1 ([facility]) 4x4 UNK 03/06/2020 12:00:00 AM EDT active 4x4 eCW1 ([facility]) 4x4 UNK 03/06/2020 12:00:00 AM EDT active 4x4 eCW1 ([facility]) Gastrostomy care - UNK 03/06/2020 12:00:00 AM EDT active Gastrostomy care - eCW1 ([facility] [place]) Optifoam 4"X4" Optifoam 4"X4" 03/06/2020 12:00:00 AM EDT active Optifoam 4"X4" eCW1 ([facility] [place]) Gastrostomy care - UNK 03/06/2020 12:00:00 AM EDT suspended Gastrostomy care - eCW1 ([facility] [place]) Gastrostomy care - UNK 03/06/2020 12:00:00 AM EDT suspended Gastrostomy care - eCW1 ([facility] [place]) Curity Wood Catheter Tray - Curity Wood Catheter Tray - 12:00:00 AM EDT suspended Curity Wood C atheter Tray - eCW1 ([facility]) Gastrostomy care - UNK 03/06/2020 12:00:00 AM EDT suspended Gastrostomy care - eCW1 ([facility] [place]) Gastrostomy care - UNK 03/06/2020 12:00:00 AM EDT suspended Gastrostomy care - eCW1 ([facility] [place]) 4x4 UNK 03/06/2020 12:00:00 AM EDT active 4x4 eCW1 ([facility]) Tracheostomy Care - UNK 03/06/2020 12:00:00 AM EDT active Tracheostomy Care - eCW1 ([facility] [place]) Tracheostomy Care - UNK 03/06/2020 12:00:00 AM EDT active Tracheostomy Care - eCW1 ([facility] [place]) Curity Wood Catheter Tray - Curity Wood Catheter Tray - 12:00:00 AM EDT suspended Curity Wood C atheter Tray - eCW1 ([facility]) Curity Wood Catheter Tray - Curity Wood Catheter Tray - 12:00:00 AM EDT active Curity Wood Cath eter Tray - eCW1 ([facility]) Curity Wood Catheter Tray - Curity Wood Catheter Tray - 12:00:00 AM EDT suspended Curity Wood C atheter Tray - eCW1 ([facility]) 4x4 UNK 03/06/2020 12:00:00 AM EDT active 4x4 eCW1 ([facility]) Optifoam 4"X4" Optifoam 4"X4" 03/06/2020 12:00:00 AM EDT active Optifoam 4"X4" eCW1 ([facility] [place]) Gastrostomy care - UNK 03/06/2020 12:00:00 AM EDT suspended Gastrostomy care - eCW1 ([facility] [place]) Gastrostomy care - UNK 03/06/2020 12:00:00 AM EDT suspended Gastrostomy care - eCW1 ([facility] [place]) Tracheostomy Care - UNK 03/06/2020 12:00:00 AM EDT active Tracheostomy Care - eCW1 ([facility] [place]) Gastrostomy care - UNK 03/06/2020 12:00:00 AM EDT active Gastrostomy care - eCW1 ([facility] [place]) 4x4 UNK 03/06/2020 12:00:00 AM EDT active 4x4 eCW1 ([facility]) Curity Wood Catheter Tray - Curity Wood Catheter Tray - 12:00:00 AM EDT suspended Curity Wood C atheter Tray - eCW1 ([facility]) Gastrostomy care - UNK 03/06/2020 12:00:00 AM EDT active Gastrostomy care - eCW1 ([facility] [place]) Curity Wood Catheter Tray - Curity Wood Catheter Tray - 12:00:00 AM EDT active Curity Wood Cath eter Tray - eCW1 ([facility]) Curity Wood Catheter Tray - Curity Wood Catheter Tray - 12:00:00 AM EDT suspended Curity Wood C atheter Tray - eCW1 ([facility]) Gastrostomy care - UNK 03/06/2020 12:00:00 AM EDT suspended Gastrostomy care - eCW1 ([facility] [place]) 4x4 UNK 03/06/2020 12:00:00 AM EDT active 4x4 eCW1 ([facility]) Curity Wood Catheter Tray - Curity Wood Catheter Tray - 12:00:00 AM EDT suspended Curity Wood C atheter Tray - eCW1 ([facility]) Tracheostomy Care - UNK 03/06/2020 12:00:00 AM EDT active Tracheostomy Care - eCW1 ([facility] [place]) Optifoam 4"X4" Optifoam 4"X4" 03/06/2020 12:00:00 AM EDT active Optifoam 4"X4" eCW1 ([facility] [place]) Gastrostomy care - UNK 03/06/2020 12:00:00 AM EDT suspended Gastrostomy care - eCW1 ([facility] [place]) Tracheostomy Care - UNK 03/06/2020 12:00:00 AM EDT active Tracheostomy Care - eCW1 ([facility] [place]) Optifoam 4"X4" Optifoam 4"X4" 03/06/2020 12:00:00 AM EDT active Optifoam 4"X4" eCW1 ([facility] [place]) Atenolol 25 MG Atenolol 03/02/2020 01:00:00 AM EDT completed NETSMART ([facility]) Polyethylene Glycol 3350 17 GM Polyethylene Glycol 3350 07/2019 01:00:00 AM EDT 17.0 {gm} completed NETS MART ([facility]) Propylene Glycol 0.6 % Propylene Glycol 03/02/2020 01:00:00 AM EDT 1.0 {gtt} completed NETSMART ( [facility]) Nystatin Powder Nystatin Powder 03/02/2020 01:00:00 AM EDT 1.0 { asd} completed NETSMART ([facility]) GuaiFENesin 100 MG/5ML GuaiFENesin 03/02/2020 01:00:00 AM EDT completed NETSMART ([facility]) PredniSONE 5 MG PredniSONE 03/02/2020 01:00:00 AM EDT 5.0 {mg} completed NETSMART ([facility]) predniSONE 10 MG predniSONE 03/02/2020 01:00:00 AM EDT 10.0 {mg} completed NETSMART ([facility]) Ipratropium-Albuterol 0.5-2.5 (3) MG/3ML Ipratropium-Albuter ol 03/02/2020 01:00:00 AM EDT completed NETSMART ([facility]) hydrOXYzine HCl 25 MG hydrOXYzine HCl 03/02/2020 01:00:00 AM EDT completed NETSMART ([facility]) Metoclopramide HCl 5 MG Metoclopramide HCl 03/02/2020 01:00:00 AM EDT completed NETSMART ([facility]) Methocarbamol 500 MG Methocarbamol 03/02/2020 01:00:00 AM EDT 50 0.0 {mg} completed NETSMART ([facility]) Melatonin 5 MG Melatonin 03/02/2020 01:00:00 AM EDT 5.0 {mg} completed NETSMART ([facility]) Acetaminophen 325 MG Acetaminophen 03/02/2020 01:00:00 AM EDT 65 0.0 {mg} completed NETSMART ([facility]) Sennosides 8.6 MG Sennosides 03/02/2020 01:00:00 AM EDT 8.6 {mg} completed NETSMART ([facility]) Docusate Sodium 283 MG Docusate Sodium 03/02/2020 01:00:00 AM EDT 283.0 {mg} completed NETSMART ( [facility]) Diclofenac Sodium 1 % Diclofenac Sodium 03/02/2020 01:00:00 AM EDT 1.0 {gm} completed NETSMART ([facility]) Gabapentin (Once-Daily) 600 MG Gabapentin (Once-Daily) 03/02 01:00:00 AM EDT 600.0 {mg} completed NET SMART ([facility]) DULoxetine HCl 60 MG DULoxetine HCl 03/02/2020 01:00:00 AM EDT 6 0.0 {mg} completed NETSMART ([facility]) Meloxicam 7.5 MG Meloxicam 03/02/2020 01:00:00 AM EDT 7.5 {mg} completed NETSMART ([facility]) Hydroxychloroquine Sulfate 200 MG Hydroxychloroquine Sulfate 03/02/2020 01:00:00 AM EDT 200.0 {mg} completed NET SMART ([facility]) Docusate Sodium 100 MG Docusate Sodium 03/02/2020 01:00:00 AM EDT 100.0 {mg} completed NETSMART ( [facility]) Buprenorphine HCl-Naloxone HCl 4-1 MG Buprenorphine HCl-Nalo xone HCl 03/02/2020 01:00:00 AM EDT completed NETSMART ([facility]) duloxetine 60 MG Delayed Release Oral Ca [...] 10 seconds before administering through a 12 Guaman[place] or larger nasogastric tube.
[facility] Medication administered onsite Prednisone 10 MG Oral Tablet predniSONE 10 MG Oral Tab let (DELTASONE) predniSONE 10 MG Oral Tablet (DELTASONE) 02/17/2020 12:00:00 AM EDT 10 mg Ora l active Take 1 tablet by mouth daily [facility] POLYETHYLENE GLYCOL 3350 142 MG/ML Oral Solution Polyethylene Glycol 3350 17 GM Oral Packet (MIRALAX) Polyethylene Glycol 3350 17 GM Oral Packet (MIRALAX) 02/17/2020 12:00:00 AM EDT 17 g Oral active Take 1 packet by mouth daily Please substitute bottle for packets, if packets are unavailable. [facility] duloxetine 60 MG Delayed Release Oral Ca psule DULoxetine HCl 60 MG Oral Capsule Delayed Release Particles (CYMBALTA) DULoxetine HCl 60 MG Oral Capsule Delaye d Release Particles (CYMBALTA) 02/17/2020 12:00:00 AM EDT 60 mg Oral active Take 1 capsule by mouth daily [facility] meloxicam 7.5 MG Oral Tablet Meloxicam 7.5 MG Oral Tab let (MOBIC) Meloxicam 7.5 MG Oral Tablet (MOBIC) 02/17/2020 12:00:00 AM EDT 7.5 mg Oral active Take 1 tablet by mouth daily with breakfast [facility] Hydroxychloroquine Sulfate 200 MG Oral T ablet Hydroxychloroquine Sulfate 200 MG Oral Tablet (PLAQUENIL) Hydroxychloroquine Sulfate 200 MG Oral T ablet (PLAQUENIL) 02/17/2020 12:00:00 AM EDT 200 mg Oral active Take 1 tablet by mouth daily [facility] Atenolol 25 MG Oral Tablet Atenolol 25 MG Oral Tablet (TENORMIN) Atenolol 25 MG Oral Tablet (TENORMIN) 02/17/2020 12:00:00 AM EDT 12.5 mg Oral active Take 0.5 tablets by mouth daily [facility] Buprenorphine 4 MG / Naloxone 1 MG Oral Strip Buprenorphine HCl-Naloxone HCl 4-1 MG Sublingual Film (SUBOXONE) Buprenorphine HCl-Naloxone HCl 4-1 MG Garcia blingual Film (SUBOXONE) 02/17/2020 12:00:00 AM EDT 1 {film} Sublingual aborted Place 1 Film under the tongue Two Times Daily , Max Da maryana Dose: 2 Film [facility] gabapentin 600 MG Oral Tablet Gabapentin 600 MG Oral T ablet (NEURONTIN) Gabapentin 600 MG Oral Tablet (NEURONTIN) 02/17/2020 12:00:00 AM EDT 900 mg Oral active Take 1.5 tablets by mouth Three times daily [facility] Buprenorphine 4 MG / Naloxone 1 MG Oral Strip Buprenorphine HCl-Naloxone HCl 4-1 MG Sublingual Film (SUBOXONE) Buprenorphine HCl-Naloxone HCl 4-1 MG Garcia blingual Film (SUBOXONE) 02/17/2020 12:00:00 AM EDT 1 {film} Sublingual active Place 1 Film under the tongue Two Times Daily , Max Daily Dose: 2 Film [facility] sennosides, INTERMEDIATE 8.6 MG Oral Tablet senna tablet 2 tablet sen na tablet 2 tablet 02/16/2020 10:00:00 PM EDT 2 {tbl} Oral active 2 tablet, Oral, Nightly, First dose on Alina 02/16/20 at 2200, For 30 days [facility] Medication administered onsite Melatonin 5 MG Oral Tablet melatonin tablet 5 mg melatonin t ablet 5 mg 02/16/2020 09:00:00 PM EDT 5 mg Oral active 5 mg, Oral, Nightly, First dose (after last modification) on [place] 02/16/20 at 2100, For 26 doses [facility] Medication administered onsite Methocarbamol 500 MG Oral Tablet methocarbamol (ROBAXI N) tablet 500 mg methocarbamol (ROBAXIN) tablet 500 mg 02/16/2020 01:00:00 PM EDT 50 0 mg Oral active 500 mg, Oral, F our Times Daily Standard, First dose (after last modification) on [facility] 02/16/20 at 1300, For 59 doses [facility] Medication administered onsite Guaifenesin 20 MG/ML Oral Solution guaiF ENesin (ROBITUSSIN) 100 MG/5ML solution 200 mg guaiFENesin (ROBITUSSIN) 100 MG/5ML solution 200 mg 12:08:15 PM EDT 200 mg Oral active 200 mg, Oral, Every 4 hours PRN, secretions, Starting [facility] 02/16/20 at 1208, For 189 hours [facility] Medication administered onsite Prednisone 20 MG Oral Tablet predniSONE (DELTASONE) ta blet 10 mg predniSONE (DELTASONE) tablet 10 mg 02/16/2020 09:00:00 AM EDT 10 mg Oral active 10 mg, Oral, Daily Standard, First dose (after last modification) on [facility] 02/16/20 at 0900, For 30 days
Take with food.
[facility] Medication administered onsite sennosides, INTERMEDIATE 8.6 MG Oral Tablet Senna 8.6 MG Oral T ablet Senna 8.6 MG Oral Tablet 02/16/2020 12:00:00 AM EDT 2 {tbl} Oral active Take 2 tablets by mouth nightly [facility] Prednisone 5 MG Oral Tablet predniSONE 5 MG Oral Table t (DELTASONE) predniSONE 5 MG Oral Tablet (DELTASONE) 02/16/2020 12:00:00 AM EDT 5 mg Oral active Take 1 tablet by mouth every evening [facility] Metoclopramide 5 MG Oral Tablet Metoclopramide HCl 5 M G Oral Tablet (REGLAN) Metoclopramide HCl 5 MG Oral Tablet (REGLAN) 02/16/2020 12:00:00 AM EDT 5 mg Oral active Take 1 tablet by mali Two Times Daily for 10 days [facility] Nystatin 100 UNT/MG Topical Powder Nysta tin [id number] UNIT/GM External Powder (Nystatin) Nystatin [id number] UNIT/GM External Powder (Nystatin) 12:00:00 AM EDT active Utilize two times a day to affected areas [facility] Guaifenesin 20 MG/ML Oral Solution guaiF ENesin 100 MG/5ML Oral Solution (ROBITUSSIN) guaiFENesin 100 MG/5ML Oral Solution (ROBITUSSIN) 01/30 12:00:00 AM EDT 200 mg Oral active Take 10 mLs by mouth every 4 (four) hours as needed (secretions) [facility] Docusate Sodium 56.6 MG/ML Enema Docusate Sodium 283 M G Rectal Enema (ENEMEEZ) Docusate Sodium 283 MG Rectal Enema (ENEMEEZ) 02/16/2020 12:00:00 AM EDT [address] 5 mLs rectally daily [facility] Docusate Sodium 100 MG Oral Capsule Docu sate Sodium 100 MG Oral Capsule (Colace) Docusate Sodium 100 MG Oral Capsule (Colace) 02/16/2020 12:00:00 AM EDT 100 mg Oral active Take 1 capsule by mouth Two Times Daily for 10 days [facility] gabapentin 300 MG Oral Capsule Gabapentin 300 MG Oral Capsule (NEURONTIN) Gabapentin 300 MG Oral Capsule (NEURONTIN) 02/16/2020 12:00:00 AM EDT 900 mg Oral aborted Take 3 capsules by m outh Three times daily [facility] Albuterol 0.833 MG/ML / Ipratropium Brom dawson 0.167 MG/ML Inhalant Solution Ipratropium-Albuterol 0.5-2.5 (3) MG/3ML Inhalation Solution (DUONEB) Ipratropium-Albuterol 0.5-2.5 (3) MG/3ML Inhalation Solution (DUONEB) 02/16/2020 12:00:00 AM EDT 3 mL Nebulization active Take 3 mLs by nebulization every 8 (eight) hours as needed [facility] Hydroxyzine Hydrochloride 25 MG Oral Tab let hydrOXYzine HCl 25 MG Oral Tablet (ATARAX) hydrOXYzine HCl 25 MG Oral Tablet (ATARAX) 02/16/2020 12:00: 00 AM EDT 25 mg Oral active Take 1 tablet by mouth every 6 (six) hours as needed for Anxiety [facility] Melatonin 5 MG Oral Tablet Melatonin 5 MG Oral Tablet 2019 12:00:00 AM EDT 5 mg Oral active Take 1 tablet by mouth nightly [facility] Acetaminophen 325 MG Oral Tablet Acetaminophen 325 MG Oral T ablet 02/16/2020 12:00:00 AM EDT 975 mg Oral active Take 3 tablets by mouth Three times daily [facility] Methocarbamol 500 MG Oral Tablet Methocarbamol 500 MG Oral Tablet (ROBAXIN) Methocarbamol 500 MG Oral Tablet (ROBAXIN) 02/16/2020 12:00:00 AM EDT 500 mg Oral active Take 1 tablet by mali th Four times daily for 10 days [facility] Carboxymethylcellulose Sodium 5 MG/ML Op hthalmic Solution Carboxymethylcellulose Sod PF 0.5 % Ophthalmic Solution (REFRESH PLUS) Carboxymethylcellulose Sod PF 0.5 % Ophthalmic Solution (REFRESH PLUS) 02/16/2020 12:00:00 AM EDT 1 [drp] Both Eyes active Place 1 drop i nto both eyes Two times daily as needed for up to 3 days [facility] Diclofenac Sodium 0.01 MG/MG Topical Gel Diclofenac Sodium 1 % Transdermal Gel (VOLTAREN) Diclofenac Sodium 1 % Transdermal Gel (VOLTAREN) 02/15 12:00:00 AM EDT 2 g Topical active Apply 2 g topically Four times daily as needed [facility] Sodium Chloride 0.111 MEQ/ML Nasal Solut ion sodium chloride (OCEAN) 0.65 % nasal spray 2 spray sodium chloride (OCEAN) 0.65 % nasal spray 2 spray 09:38:56 AM EDT 2 {spray} Each Nare active 2 spray, Each Nare, Three Times Daily-PRN, Congestion, Starting Thu02/15/20 at 0938, For 552 hours [facility] Medication administered onsite Carboxymethylcellulose Sodium 5 MG/ML Op hthalmic Solution carboxymethylcellulose PF (REFRESH PLUS) 0.5 % ophthalmic solution 1 drop carboxymethylcellulose PF (REFRESH PLUS) 0.5 % ophthalmic solution 1 drop 02/15/2020 09:38:37 AM EDT 1 [drp] Both Eyes active 1 drop, Chin th Eyes, 2 Times Daily PRN, Dry Eyes, Starting Thu02/15/20 at 0938, For 552 hours [facility] Medication administered onsite Docusate Sodium 56.6 MG/ML Enema docusate sodium (ENEM EEZ) enema 5 mL docusate sodium (ENEMEEZ) enema 5 mL 02/14/2020 07:00:00 PM EDT 5 mL Rectal active 5 mL, Rectal, Daily at 1900, First dose on Thu02/14/20 at 1900, For 30 days [facility] Medication administered onsite gabapentin 300 MG Oral Capsule gabapentin (NEURONTIN) capsule 900 mg gabapentin (NEURONTIN) capsule 900 mg 02/14/2020 05:00:00 PM EDT 900 mg Oral active 900 mg, Oral, Three Times D aily Standard, First dose on Thu02/14/20 at 1700, For 30 days [facility] Medication administered onsite Acetaminophen 325 MG Oral Tablet acetaminophen (TYLENO L) tablet 975 mg acetaminophen (TYLENOL) tablet 975 mg 02/14/2020 05:00:00 PM EDT 97 5 mg Oral active 975 mg, Oral, T hree Times Daily Standard, First dose on Thu02/14/20 at 1700, For 30 days
Maximum daily dose of acetaminophen is 3,000 mg from all sources in 24 hours.
[facility] Medication administered onsite Lactulose 667 MG/ML Oral Solution lactulose (CHRONULAC ) solution 120 mL lactulose (CHRONULAC) solution 120 mL 02/13/2020 09:45:00 AM EDT 12 0 mL Oral completed 120 mL, Oral, O nce, 02/13/20 at 0945, For 1 dose
After therapy completed
[facility] Medication administered onsite Melatonin 5 MG Oral Tablet melatonin tablet 5 mg melatonin t ablet 5 mg 02/12/2020 09:00:00 PM EDT 5 mg Per G Tube aborted 5 mg, Per G Tube, Nightly, First dose (after last modification) on 02/12/20 at 2100, For 30 days [facility] Medication administered onsite Bisacodyl 10 MG Rectal Suppository bisacodyl (DULCOLAX ) suppository 10 mg bisacodyl (DULCOLAX) suppository 10 mg 02/12/2020 06:00:00 PM EDT 10 mg Rectal aborted 10 mg, Rectal, Daily Standard, First dose on 02/12/20 at 1800, For 30 days
Please give 30 min to 60 min after eating dinner
[facility] Medication administered onsite POLYETHYLENE GLYCOL 3350 [...] due to potential increased risk for aspiration.
[facility] Medication administered onsite Lactulose 667 MG/ML Oral Solution lactulose (CHRONULAC ) solution 30 mL lactulose (CHRONULAC) solution 30 mL 02/11/2020 07:15:00 PM EDT 30 mL Oral completed 30 mL, Oral, Once, 02/11/20 a t 1915, For 1 dose [facility] Medication administered onsite Buprenorphine 4 MG [...] or drinking for 15 minutes after administration.
[facility] Medication administered onsite Methocarbamol 500 MG Oral Tablet methocarbamol (ROBAXI N) tablet 500 mg methocarbamol (ROBAXIN) tablet 500 mg 02/11/2020 09:00:00 AM EDT 500 mg Per G Tube aborted 500 mg, Per G Tube, Four Times Daily Standard, First dose (after last modification) on 02/11/20 at 0900, For 20 days [facility] Medication administered onsite Buprenorphine 4 MG [...] or drinking for 15 minutes after administration.
[facility] Medication administered onsite Docusate Sodium 56.6 MG/ML Enema docusate sodium (ENEM EEZ) enema 5 mL docusate sodium (ENEMEEZ) enema 5 mL 01/30/2020 06:00:00 PM EDT 5 mL Recta l aborted 5 mL, Rectal, Daily Standard, First dose on Thu01/30/20 at 1800, For 30 days [facility] Medication administered onsite Lactulose 667 MG/ML Oral Solution lactulose (CHRONULAC ) solution 60 mL lactulose (CHRONULAC) solution 60 mL 01/30/2020 04:00:00 PM EDT 60 mL Per G Tube completed 60 mL, Per G Tube, Once, 01/01 at 1600, For 1 dose [facility] Medication administered onsite 0.3 ML Enoxaparin sodium 100 MG/ML Prefi lled Syringe enoxaparin sodium (LOVENOX) injection 30 mg enoxaparin sodium (LOVENOX) injection 30 mg 01/30/2020 09:00:00 AM EDT 30 mg Subcutaneous active 30 mg, Subcutaneous, Every 12 hours Standard, First dose (after last reorder) on Thu01/30/20 at 0900, For 42 doses [facility] Medication administered onsite Buprenorphine 2 MG / Naloxone 0.5 MG Ora l Strip buprenorphine-naloxone (SUBOXONE) 2-0.5 MG per sublingual film 1 Film buprenorphine-naloxone (SUBOXONE) 2-0.5 MG per sublingual film 1 Film 01/29/2020 09:00:00 PM EDT Sublingual aborted 1 Film (2 mg of buprenorphine), Sublingual, 2 Times Daily, First dose on Thu01/29/20 at 2100, For 27 doses [facility] Medication administered onsite Metoclopramide 10 MG Oral Tablet metoclopramide (ANSON N) tablet 5 mg metoclopramide (REGLAN) tablet 5 mg 01/27/2020 09:00:00 PM EDT 5 mg Oral active 5 mg, Oral, 2 Times Daily, First dose (after last modification) on Thu01/27/20 at 2100, For 30 days [facility] Medication administered onsite Glycerin 2000 MG Rectal Suppository glycerin (laxative ) suppository 2 g glycerin (laxative) suppository 2 g 01/27/2020 06:00:00 PM EDT 1 {supposito ry} Rectal aborted 2 g (1 supposit ory), Rectal, Daily Standard, First dose on Thu01/27/20 at 1800, For 30 days
Administer 30 minutes after bolus with digital stimulation
[facility] Medication administered onsite Lactulose 667 MG/ML Oral Solution lactulose (CHRONULAC ) solution 60 mL lactulose (CHRONULAC) solution 60 mL 01/25/2020 04:00:00 PM EDT 60 mL Oral completed 60 mL, Oral, Once, Thu01/25/20 a t 1600, For 1 dose [facility] Medication administered onsite pantoprazole (PROTONIX) 2 mg/mL oral suspension 40 mg 01/24/2020 05:30:00 PM EDT 40 mg Per G Tube aborted 40 mg , Per G Tube, Two times daily before breakfast and dinner, First dose (after last modification) on Thu01/24/20 at 1730, For 30 days [facility] Medication administered onsite Albuterol 0.833 MG/ML [...] this unless KAE is selected 'Yes' below.
[facility] Medication administered onsite Cephalexin 500 MG Oral Capsule cephALEXin (KEFLEX) cap gladis 500 mg cephALEXin (KEFLEX) capsule 500 mg 01/24/2020 09:00:00 AM EDT 500 mg Oral completed 500 mg, Oral, 2 Times Daily, First dose on Thu01/24/20 at 0900, For 5 days [facility] Medication administered onsite sennosides, INTERMEDIATE 35.2 MG/ML Oral Solution senna (SENOKO T) syrup 10 mL senna (SENOKOT) syrup 10 mL 01/23/2020 11:00:00 AM EDT 10 mL Oral aborted 10 mL, Oral, Daily Standard, First dose (after last modification) on Thu01/23/20 at 1100, For 30 days [facility] Medication administered onsite Docusate Sodium 10 MG/ML Oral Suspension docusate (COLACE) 50 MG/5ML liquid 100 mg docusate (COLACE) 50 MG/5ML liquid 100 mg 01/23/2020 09:30:00 AM EDT 100 mg Oral active 100 mg, Or al, 2 Times Daily, First dose on Thu01/23/20 at 0930, For 30 days [facility] Medication administered onsite Lactulose 667 MG/ML Oral Solution lactulose (CHRONULAC ) solution 60 mL lactulose (CHRONULAC) solution 60 mL 01/22/2020 10:00:00 AM EDT 60 mL Per G Tube completed 60 mL, Per G Tube, E very 2 hours, First dose (after last reorder) on Thu01/22/20 at 1000, For 2 doses [facility] Medication administered onsite Famotidine 20 MG Oral Tablet famotidine (PEPCID) table t 20 mg famotidine (PEPCID) tablet 20 mg 01/21/2020 08:46:26 PM EDT 20 mg Oral active 20 mg, Oral, 2 Times Daily PRN, heartburn, Starting 01/21/20 at 6, For 30 days [facility] Medication administered onsite Albuterol 0.833 MG/ML [...] this unless KAE is selected 'Yes' below.
[facility] Medication administered onsite Lactulose 667 MG/ML Oral Solution lactulose (CHRONULAC ) solution 60 mL lactulose (CHRONULAC) solution 60 mL 01/21/2020 02:00:00 PM EDT 60 mL Per G Tube completed 60 mL, Per G Tube, E very 2 hours, First dose on 01/21/20 at 1400, For 2 doses [facility] Medication administered onsite sennosides, INTERMEDIATE 35.2 MG/ML Oral Solution senna (SENOKO T) syrup 10 mL senna (SENOKOT) syrup 10 mL 01/21/2020 01:45:00 PM EDT 10 mL Oral aborted 10 mL, Oral, Nightly, First dose on 01/21/20 at 1345, For 30 days [facility] Medication administered onsite Hydroxychloroquine Sulfate 200 MG Oral T ablet hydroxychloroquine (PLAQUENIL) tablet 200 mg hydroxychloroquine (PLAQUENIL) tablet 200 mg 0 11:30:00 AM EDT 200 mg Oral active 200 mg, Oral, Daily Standard, First dose on 01/21/20 at 1130, For 30 days [facility] Medication administered onsite Acetylcysteine 200 MG/ML Inhalant Soluti on acetylcysteine (MUCOMYST) 20 % inhalation solution 600 mg acetylcysteine (MUCOMYST) 20 % inhalatio n solution 600 mg 01/21/2020 11:00:00 AM EDT 600 mg Nebulization compl eted 600 mg, Nebulization, 2 Times Daily, First dose on 01/21/20 at 1100, For 7 doses [facility] Medication administered onsite Prednisone 5 MG Oral Tablet predniSONE (DELTASONE) tab let 5 mg predniSONE (DELTASONE) tablet 5 mg 01/20/2020 09:00:00 PM EDT 5 mg Oral active 5 mg, Oral, Every evening, First dose on 01/20/20 at 2100, For 30 days
Take with food.
[facility] Medication administered onsite Acetaminophen 32 MG/ML [...] mg from all sources in 24 hours.
[facility] Medication administered onsite gabapentin 50 MG/ML Oral Solution gabape ntin (NEURONTIN) 300 MG/6ML oral solution 900 mg gabapentin (NEURONTIN) 300 MG/6ML oral solution 900 mg 01/19/2020 05:00:00 PM EDT 900 mg Per G Tube aborted 900 mg, Per G Tube, Three Times Daily Standard, First dose (after last modification) on Thu01/19/20 at 1700, For 30 days [facility] Medication administered onsite Prednisone 20 MG Oral Tablet predniSONE (DELTASONE) ta blet 10 mg predniSONE (DELTASONE) tablet 10 mg 01/18/2020 01:45:00 PM EDT 10 mg Oral aborted 10 mg, Oral, Daily Standard, First dose on Thu01/18/20 at 1345, For 30 days
Take with food.
[facility] Medication administered onsite Melatonin 5 MG Oral Tablet melatonin tablet 5 mg melatonin t ablet 5 mg 01/17/2020 09:00:00 PM EDT 5 mg Per G Tube aborted 5 mg, Per G Tube, Nightly, First dose (after last modification) on Thu01/17/20 at 2100, For 28 doses [facility] Medication administered onsite calcium polycarbophil 625 MG Oral Tablet polycarbophil (FIBERCON) tablet 625 mg polycarbophil (FIBERCON) tablet 625 mg 01/17/2020 09:00:00 PM EDT 625 mg Per G Tube aborted 625 mg, Per G Tube, 2 Times Daily, First dose (after last modification) on Thu01/17/20 at 2100, For 30 days [facility] Medication administered onsite Carboxymethylcellulose Sodium 5 MG/ML Op hthalmic Solution carboxymethylcellulose PF (REFRESH PLUS) 0.5 % ophthalmic solution 1 drop carboxymethylcellulose PF (REFRESH PLUS) 0.5 % ophthalmic solution 1 drop 01/17/2020 09:30:00 AM EDT 1 [drp] Both Eyes aborted 1 drop, Chin th Eyes, 2 Times Daily PRN, Dry Eyes, Starting Thu01/17/20 at 0930, For 720 hours [facility] Medication administered onsite Piperonyl Butoxide 40 [...] min; repeat in 1 week if needed.
[facility] Medication administered onsite Hydroxyzine Hydrochloride 25 MG Oral Tablet hydrOXYzin e (ATARAX) tablet 25 mg hydrOXYzine (ATARAX) tablet 25 mg 01/11/2020 10:37:21 AM EDT 25 mg Oral active 25 mg, Oral, Every 6 hours PRN, Anxiety, Starting Thu01/11/20 at 1037, For 58 days 22 hours [facility] Medication administered onsite pantoprazole (PROTONIX) 2 mg/mL oral suspension 40 mg 01/11/2020 10:30:00 AM EDT 40 mg Per G Tube aborted 40 mg , Per G Tube, Before Breakfast, First dose on Thu01/11/20 at 1030, For 30 days [facility] Medication administered onsite meloxicam 7.5 MG Oral Tablet meloxicam (MOBIC) tablet 7.5 mg meloxicam (MOBIC) tablet 7.5 mg 01/09/2020 01:45:00 PM EDT 7.5 mg Oral acti ve 7.5 mg, Oral, Daily with Breakfast, First dose on Thu01/09/20 at 1345, For 59 doses [facility] Medication administered onsite sennosides, INTERMEDIATE 8.6 MG Oral Tablet senna tablet 2 tablet sen na tablet 2 tablet 01/09/2020 09:00:00 AM EDT 2 {tbl} Oral aborted 2 tablet, Oral, Daily Standard, First dose on Thu01/09/20 at 0900, For 30 days [facility] Medication administered onsite Diclofenac Sodium 0.01 MG/MG Topical Gel Diclofenac Sodium (VOLTAREN) 1 % gel 2 g Diclofenac Sodium (VOLTAREN) 1 % gel 2 g 01/06/2020 08:30:00 AM EDT 2 g Topical active 2 g, Topical, Four Times Daily-PRN, Pain, Starting Thu01/06/20 at 0830, For 59 days 3 hours
Apply to areas of pain, please include joints of hands
[facility] Medication administered onsite Bisacodyl 10 MG Rectal Suppository bisacodyl (DULCOLAX ) suppository 10 mg bisacodyl (DULCOLAX) suppository 10 mg 01/05/2020 05:00:00 PM EDT 10 mg Rectal aborted 10 mg, Rectal, Daily Standard, First dose (after last modification) on Thu01/05/20 at 1700, For 26 doses
With digital stimulation
[facility] Medication administered onsite gabapentin 50 MG/ML Oral Solution gabape ntin (NEURONTIN) 300 MG/6ML oral solution 900 mg gabapentin (NEURONTIN) 300 MG/6ML oral solution 900 mg 01/05/2020 05:00:00 PM EDT 900 mg Per G Tube aborted 900 mg, Per G Tube, Every 8 hours Standard (3 times per day), First dose (after last modification) on Thu01/05/20 at 1700, For 111 doses [facility] Medication administered onsite Nystatin 100 UNT/MG Topical Powder nystatin (MYCOSTATI N) powder nystatin (MYCOSTATIN) powder 01/03/2020 03:15:00 PM EDT Topical active Topical, 2 Times Daily, First dose (after last modification) on Thu01/03/20 at 1515, For 117 doses [facility] Medication administered onsite Sodium Chloride 0.111 MEQ/ML Nasal Solut ion sodium chloride (OCEAN) 0.65 % nasal spray 2 spray sodium chloride (OCEAN) 0.65 % nasal spray 2 spray 07/2019 02:00:00 PM EDT 2 {spray} Each Nare aborted 2 spray, Each Nare, Three Times Daily, First dose on Thu01/01/20 at 1400, For 30 days [facility] Medication administered onsite Carboxymethylcellulose Sodium 5 MG/ML Op hthalmic Solution carboxymethylcellulose PF (REFRESH PLUS) 0.5 % ophthalmic solution 1 drop carboxymethylcellulose PF (REFRESH PLUS) 0.5 % ophthalmic solution 1 drop 01/01/2020 10:45:00 AM EDT 1 [drp] Both Eyes aborted 1 drop, Chin th Eyes, 2 Times Daily, First dose (after last modification) on 01/01/20 at 1045, For 53 doses [facility] Medication administered onsite Carboxymethylcellulose Sodium 5 MG/ML Op hthalmic Solution carboxymethylcellulose PF (REFRESH PLUS) 0.5 % ophthalmic solution 1 drop carboxymethylcellulose PF (REFRESH PLUS) 0.5 % ophthalmic solution 1 drop 01/01/2020 10:35:40 AM EDT 1 [drp] Both Eyes aborted 1 drop, Chin th Eyes, 2 Times Daily PRN, Dry Eyes, Starting 01/01/20 at 1035, For 30 days [facility] Medication administered onsite Buprenorphine 2 MG [...] or drinking for 15 minutes after administration.
[facility] Medication administered onsite sennosides, INTERMEDIATE 35.2 MG/ML Oral Solution senna (SENOKO T) syrup 10 mL senna (SENOKOT) syrup 10 mL 12/31/2019 12:00:00 PM EDT 10 mL Per G Tube aborted 10 mL, Per G Tube, Nightly, First dose (after last modification) on 12/31/19 at 1200, For 12 doses [facility] Medication administered onsite Acetaminophen 32 MG/ML [...] mg from all sources in 24 hours.
[facility] Medication administered onsite Atenolol 25 MG Oral Tablet atenolol (TENORMIN) tablet 12.5 mg atenolol (TENORMIN) tablet 12.5 mg 12/28/2019 09:00:00 AM EDT 12.5 mg Oral active 12.5 mg, Oral, Daily Standa rd, First dose on Thu12/28/19 at 0900, For 59 doses
Check vital signs before administering
[facility] Medication administered onsite Guaifenesin 20 MG/ML Oral Solution guaiF ENesin (ROBITUSSIN) 100 MG/5ML solution 200 mg guaiFENesin (ROBITUSSIN) 100 MG/5ML solution 200 mg 08:59:00 AM EDT 200 mg Per G Tube aborted 200 m g, Per G Tube, Every 4 hours PRN, secretions, Starting Thu12/27/19 at 0859, For 51 days 4 hours [facility] Medication administered onsite 0.3 ML Enoxaparin sodium 100 MG/ML Prefi lled Syringe enoxaparin sodium (LOVENOX) injection 30 mg enoxaparin sodium (LOVENOX) injection 30 mg 12/26/2019 09:00:00 AM EDT 30 mg Subcutaneous completed 3 0 mg, Subcutaneous, Every 12 hours Standard (2 times per day), First dose (after last modification) on Thu12/26/19 at 0900, For 69 doses [facility] Medication administered onsite calcium polycarbophil 625 MG Oral Tablet polycarbophil (FIBERCON) tablet 625 mg polycarbophil (FIBERCON) tablet 625 mg 12/25/2019 09:00:00 AM EDT 625 mg Per G Tube aborted 625 mg, Per G Tube, Daily Standard, First dose on Thu12/25/19 at 0900, For 30 days [facility] Medication administered onsite Metoclopramide 10 MG Oral Tablet metoclopramide (ANSON N) tablet 5 mg metoclopramide (REGLAN) tablet 5 mg 12/24/2019 05:30:00 PM EDT 5 mg Oral aborted 5 mg, Oral, Before Meals - Three Times Daily, First dose (after last reorder) on Thu12/24/19 at 1730, For 119 doses [facility] Medication administered onsite Metoclopramide 10 MG Oral Tablet metoclopramide (ANSON N) tablet 5 mg metoclopramide (REGLAN) tablet 5 mg 12/23/2019 11:15:00 PM EDT 5 mg Oral completed 5 mg, Oral, Once, Thu12/23/19 at 2315, For 1 dose [facility] Medication administered onsite Ondansetron 4 MG Oral Tablet ondansetron (ZOFRAN) tabl et 4 mg ondansetron (ZOFRAN) tablet 4 mg 12/21/2019 11:15:00 PM EDT 4 mg Oral active 4 mg, Oral, Every 6 hours PRN, Nausea, Vomiting, Starting Thu12/21/19 at 2315, For 58 days 14 hours [facility] Medication administered onsite sennosides, INTERMEDIATE 35.2 MG/ML Oral Solution senna (SENOKO T) syrup 10 mL senna (SENOKOT) syrup 10 mL 12/21/2019 12:00:00 PM EDT 10 mL Per G Tube aborted 10 mL, Per G Tube, Nightly, First dose (after last modification) on Thu12/21/19 at 1200, For 12 doses [facility] Medication administered onsite lidocaine (LIDODERM) 5 % patch 1 patch [id number] 08:30:00 AM EDT 1 {patch} Transdermal active 1 patch, T ransdermal, Daily PRN, Pain, Starting Thu12/20/19 at 0830, For 88 days
Apply to back12 hours on - 12 hours off
[facility] Medication administered onsite Acetaminophen 32 MG/ML [...] mg from all sources in 24 hours.
[facility] Medication administered onsite Ondansetron 4 MG Oral Tablet ondansetron (ZOFRAN) tabl et 4 mg ondansetron (ZOFRAN) tablet 4 mg 12/19/2019 10:54:19 AM EDT 4 mg Oral aborted 4 mg, Oral, Every 8 hours PRN, Nausea, Vomiting, Starting 12/19/19 at 1054, For 30 days [facility] Medication administered onsite albuterol (PROVENTIL) nebulizer solution 2.5 mg [id number] 12/18/2019 12:46:33 PM EDT 2.5 mg Nebulization aborted 2.5 mg, Nebulization, Every 2 hours PRN, Wheezing, Shortness of Breath, Starting 12/18/19 at 1246, For 7 days 20 hours [facility] Medication administered onsite Buprenorphine 2 MG [...] or drinking for 15 minutes after administration.
[facility] Medication administered onsite Albuterol 0.833 MG/ML [...] this unless KAE is selected 'Yes' below.
[facility] Medication administered onsite Bisacodyl 10 MG Rectal Suppository bisacodyl (DULCOLAX ) suppository 10 mg bisacodyl (DULCOLAX) suppository 10 mg 12/16/2019 06:00:00 PM EDT 10 mg Rectal aborted 10 mg, Rectal, Daily Standard, First dose on Thu12/16/19 at 1800, For 30 days
With digital stimulation
[facility] Medication administered onsite Methocarbamol 500 MG Oral Tablet methocarbamol (ROBAXI N) tablet 500 mg methocarbamol (ROBAXIN) tablet 500 mg 12/15/2019 05:00:00 PM EDT 500 mg Per G Tube aborted 500 mg, Per G Tube, Four Times Daily Standard, First dose (after last modification) on Alina 12/15/19 at 1700, For 236 doses [facility] Medication administered onsite duloxetine 60 MG [...] 10 seconds before administering through a 12 [place] or larger nasogastric tube.
[facility] Medication administered onsite Buprenorphine 2 MG [...] or drinking for 15 minutes after administration.
[facility] Medication administered onsite Clotrimazole 10 MG Oral Lozenge clotrimazole (MYCELEX) patsy 10 mg clotrimazole (MYCELEX) patsy 10 mg 12/14/2019 06:00:00 PM EDT 10 mg Oral aborted 10 mg, Oral, Five Times Daily Standard, First dose on Thu12/14/19 at 1800, For 30 days
Dissolve slowly in mouth
[facility] Medication administered onsite duloxetine 60 MG [...] 10 seconds before administering through a 12 [place] or larger nasogastric tube.
[facility] Medication administered onsite Atenolol 50 MG Oral Tablet atenolol (TENORMIN) tablet 25 mg atenolol (TENORMIN) tablet 25 mg 12/14/2019 09:00:00 AM EDT 25 mg Per G Tube a borted 25 mg, Per G Tube, Daily Standard, First dose (after last modification) on Thu12/14/19 at 0900, For 21 doses
Check vital signs before administering
[facility] Medication administered onsite Cephalexin 500 MG Oral Capsule cephALEXin (KEFLEX) cap gladis 500 mg cephALEXin (KEFLEX) capsule 500 mg 12/14/2019 08:45:00 AM EDT 500 mg Per G Tub e completed 500 mg, Per G Tube, Every 6 hours Standard (4 times per day), First dose (after last modification) on Thu12/14/19 at 0845, For 5 days [facility] Medication administered onsite lactated ringers bolus 1,000 mL [id number] 12/14/2019 01:00:00 AM EDT 1000 mL Intravenous completed 1,000 mL , Intravenous, Once, Thu12/14/19 at 0100, For 1 dose [facility] Medication administered onsite POLYETHYLENE GLYCOL 3350 142 MG/ML Oral Solution Polyethylene Glycol 3350 17 GM Oral Packet (MIRALAX) Polyethylene Glycol 3350 17 GM Oral Packet (MIRALAX) 12/14/2019 12:00:00 AM EDT 17 g Oral aborted Take 1 packet by mouth daily for 3 daysPlease substitute bottle for packets, if packets are unavailable. [facility] duloxetine 60 MG Delayed Release Oral Ca psule DULoxetine HCl 60 MG Oral Capsule Delayed Release Particles (CYMBALTA) DULoxetine HCl 60 MG Oral Capsule Delaye d Release Particles (CYMBALTA) 12/14/2019 12:00:00 AM EDT 60 mg Oral aborted Take 1 capsule by mouth daily [facility] Medication administered onsite Atenolol 25 MG Oral Tablet Atenolol 25 MG Oral Tablet (TENORMIN) Atenolol 25 MG Oral Tablet (TENORMIN) 12/14/2019 12:00:00 AM EDT 25 mg Per G Tube aborted 1 tablet by Per G Tube route [facility] Medication administered onsite Lisinopril 10 MG Oral Tablet Lisinopril 10 MG Oral Tab let (ZESTRIL) Lisinopril 10 MG Oral Tablet (ZESTRIL) 12/14/2019 12:00:00 AM EDT 10 mg Per G Tube aborted 1 tablet by Per G Tube route [facility] Medication administered onsite sennosides, INTERMEDIATE 35.2 MG/ML Oral Solution senna (SENOKO T) syrup 10 mL senna (SENOKOT) syrup 10 mL 12/13/2019 10:00:00 PM EDT 10 mL Per G Tube aborted 10 mL, Per G Tube, Nightly, First dose (after last modification) on Thu12/13/19 at 2200, For 20 doses [facility] Medication administered onsite Melatonin 5 MG Oral Tablet melatonin tablet 5 mg melatonin t ablet 5 mg 12/13/2019 10:00:00 PM EDT 5 mg Per G Tube aborted 5 mg, Per G Tube, Nightly, First dose (after last modification) on Thu12/13/19 at 2200, For 50 doses [facility] Medication administered onsite heparin sodium, porcine [...] Reference Policy CM C-34H Central Line Policy.
[facility] Medication administered onsite sodium chloride (preservative free) 0.9 % flush 10 mL [id number] 12/13/2019 09:00:00 PM EDT 10 mL Intravenous active 10 mL, Intravenous, Every 12 hours, First dose on Thu12/13/19 at 2100, For 175 doses
WHEN NOT IN USE - Verify blood return before use. Flush with 10 mL of Sodium Chloride 0.9 % and 2 mL Heparin 10 units/mL. Reference Policy CM C-34H Central Line Policy.
[facility] Medication administered onsite Buprenorphine 2 MG [...] or drinking for 15 minutes after administration.
[facility] Medication administered onsite lidocaine (LIDODERM) 5 % patch 1 patch [id number] 09:00:00 PM EDT 1 {patch} Transdermal aborted 1 patch, T ransdermal, Every 24 hours, First dose (after last modification) on Thu12/13/19 at 2100, For 26 doses
Apply to back12 hours on - 12 hours off
[facility] Medication administered onsite 0.3 ML Enoxaparin sodium 100 MG/ML Prefi lled Syringe enoxaparin sodium (LOVENOX) injection 30 mg enoxaparin sodium (LOVENOX) injection 30 mg 12/13/2019 09:00:00 PM EDT 30 mg Subcutaneous aborted 30 mg, Subcutaneous, Every 12 hours Standard (2 times per day), First dose (after last modification) on Thu12/13/19 at 2100, For 29 doses [facility] Medication administered onsite Docusate Sodium 10 MG/ML Oral Suspension docusate (COLACE) 50 MG/5ML liquid 100 mg docusate (COLACE) 50 MG/5ML liquid 100 mg 12/13/2019 09:00:00 PM EDT 100 mg Per G Tube aborted 100 mg, P er G Tube, 2 Times Daily, First dose (after last modification) on Thu12/13/19 at 2100, For 43 doses [facility] Medication administered onsite heparin sodium, porcine [...] lock. Reference Policy C-34 Central Line Policy.
[facility] Medication administered onsite sodium chloride (preservative free) 0.9 % flush 10 mL [id number] 12/13/2019 07:02:02 PM EDT 10 mL Intravenous active 10 mL, Intravenous, PRN, Line Care, Starting Thu12/13/19 at 1902, For 87 days 14 hours
Verify blood return before use. Flush with 10 mL of Sodium Chloride 0.9 % before and after infusions or blood sampling followed-by 2 mL Heparin 10 units/mL to lock. Reference Policy C-34H Central Line Policy.
[facility] Medication administered onsite Diclofenac Sodium 0.01 MG/MG Topical Gel Diclofenac Sodium (VOLTAREN) 1 % gel 2 g Diclofenac Sodium (VOLTAREN) 1 % gel 2 g 12/13/2019 05:00:00 PM EDT 2 g Topical aborted 2 g, Topical, Four Times Daily Standard, First dose (after last modification) on Thu12/13/19 at 1700, For 111 doses
Apply to areas of pain, please include joints of hands
[facility] Medication administered onsite gabapentin 50 MG/ML Oral Solution gabape ntin (NEURONTIN) 300 MG/6ML oral solution 600 mg gabapentin (NEURONTIN) 300 MG/6ML oral solution 600 mg 12/13/2019 05:00:00 PM EDT 600 mg Per G Tube aborted 600 mg, Per G Tube, Every 8 hours Standard (3 times per day), First dose (after last modification) on Thu12/13/19 at 1700, For 76 doses [facility] Medication administered onsite Methocarbamol 500 MG Oral Tablet methocarbamol (ROBAXI N) tablet 500 mg methocarbamol (ROBAXIN) tablet 500 mg 12/13/2019 05:00:00 PM EDT 500 mg Per G Tube aborted 500 mg, Per G Tube, Four Times Daily Standard, First dose (after last modification) on Thu12/13/19 at 1700, For 12 doses [facility] Medication administered onsite Carboxymethylcellulose Sodium 5 MG/ML Op hthalmic Solution carboxymethylcellulose PF (REFRESH PLUS) 0.5 % ophthalmic solution 1 drop carboxymethylcellulose PF (REFRESH PLUS) 0.5 % ophthalmic solution 1 drop 12/13/2019 03:10:18 PM EDT 1 [drp] Both Eyes aborted 1 drop, Chin th Eyes, Three Times Daily-PRN, Dry Eyes, Starting Thu12/13/19 at 1510, For 26 days [facility] Medication administered onsite Acetaminophen 32 MG/ML [...] mg from all sources in 24 hours.
[facility] Medication administered onsite sennosides, INTERMEDIATE 35.2 MG/ML Oral Solution Senna 176 MG/ 5ML Oral Syrup (SENOKOT) Senna 176 MG/5ML Oral Syrup (SENOKOT) 12/13/2019 12:00:00 AM EDT 10 m L Oral aborted Take 10 mLs by mouth [facility] Medication administered onsite Insulin Glargine 100 UNT/ML Injectable S olution Insulin Glargine 100 UNIT/ML Subcutaneous Solution (LANTUS) Insulin Glargine 100 UNIT/ML Subcutaneou s Solution (LANTUS) 12/13/2019 12:00:00 AM EDT 5 U Subcutaneous aborted Inject 5 Units into the skin [facility] Medication administered onsite Ibuprofen 20 MG/ML Oral Suspension Ibupr ofen 100 MG/5ML Oral Suspension (MOTRIN) Ibuprofen 100 MG/5ML Oral Suspension (MOTRIN) 12/13/2019 12:00:0 0 AM EDT 400 mg Oral aborted Take 20 mL s by mouth every 6 (six) hours as needed for Fever [facility] Medication administered onsite Lidocaine 5 % External Patch (LIDODERM) [id number] 12/13/19 12:00:00 AM EDT 1 {patch} Transdermal aborted Place 1 pa tch onto the skin every 24 (twenty-four) hours [facility] Medication administered onsite insulin lispro 100 UNIT/ML SC injection HIGH DOSE TUBE CONT INSULIN patients [id number] 12/13/2019 12:00:00 AM EDT U Subcutaneous aborted Patient Instructions: Please refer to Insulin Sliding Scale Instructions in the Discharge Instructions. [facility] Medication administered onsite Buprenorphine 2 MG / Naloxone 0.5 MG Ora l Strip Buprenorphine HCl-Naloxone HCl 2-0.5 MG Sublingual Film (SUBOXONE) Buprenorphine HCl-Naloxone HCl 2-0.5 MG Sublingual Film (SUBOXONE) 12/13/2019 12:00:00 AM EDT 1 {film} Sublin gual aborted Place 1 Film under t he tongue Two Times Daily , Max Daily Dose: 2 Film [facility] Medication administered onsite Diclofenac Sodium 0.01 MG/MG Topical Gel Diclofenac Sodium 1 % Transdermal Gel (VOLTAREN) Diclofenac Sodium 1 % Transdermal Gel (VOLTAREN) 12/12 12:00:00 AM EDT 2 g Topical aborted Apply 2 g topic ally Four times daily [facility] Medication administered onsite Carboxymethylcellulose Sodium 5 MG/ML Op hthalmic Solution Carboxymethylcellulose Sod PF 0.5 % Ophthalmic Solution (REFRESH PLUS) Carboxymethylcellulose Sod PF 0.5 % Ophthalmic Solution (REFRESH PLUS) 12/13/2019 12:00:00 AM EDT 1 [drp] Both Eyes aborted Place 1 drop i nto both eyes Three times daily as needed [facility] Medication administered onsite Methocarbamol 500 MG Oral Tablet Methocarbamol 500 MG Oral Tablet (ROBAXIN) Methocarbamol 500 MG Oral Tablet (ROBAXIN) 12/13/2019 12:00:00 AM EDT 500 mg Oral aborted Take 1 tablet by mali th Four times daily for 10 days [facility] Medication administered onsite Melatonin 5 MG Oral Tablet Melatonin 5 MG Oral Tablet 2019 12:00:00 AM EDT 5 mg Oral aborted Take 1 tablet by mouth nightly [facility] Medication administered onsite Bisacodyl 10 MG Rectal Suppository Bisac odyl 10 MG Rectal Suppository (DULCOLAX) Bisacodyl 10 MG Rectal Suppository (DULCOLAX) 12/13/2019 12:00:0 0 AM EDT [address] 1 garcia ppository rectally daily as needed for Constipation for up to 10 days [facility] Medication administered onsite Acetaminophen 32 MG/ML Oral Solution Pati taminophen 160 MG/5ML Oral Solution (TYLENOL) Acetaminophen 160 MG/5ML Oral Solution (TYLENOL) 12/12 12:00:00 AM EDT 650 mg Oral aborted Take 20 mLs by mouth every 6 (six) hours as needed for up to 10 days [facility] Medication administered onsite gabapentin 50 MG/ML Oral Solution Gabape ntin 250 MG/5ML Oral Solution (NEURONTIN) Gabapentin 250 MG/5ML Oral Solution (NEURONTIN) 2019 12:00:00 AM EDT 600 mg Oral aborted Take 12 mLs by m outh every 8 (eight) hours [facility] Medication administered onsite Buprenorphine 2 MG [...] or drinking for 15 minutes after administration.
[facility] Medication administered onsite Buprenorphine 2 MG [...] or drinking for 15 minutes after administration.
[facility] Medication administered onsite POLYETHYLENE GLYCOL 3350 [...] due to potential increased risk for aspiration.
[facility] Medication administered onsite Insulin Glargine 100 [...] glucose more than 400 mg/dL: notify provider
[facility] Medication administered onsite dextrose 50 % IV solution 50 mL [id number] 12/11/2019 11:21:53 PM E DT 50 mL Intravenous aborted 50 mL, Intrav enous, PRN, Low blood sugar, Starting 12/11/19 at 2321, For 30 days
Not for midline administration.
[facility] Medication administered onsite Insulin Glargine 100 [...] glucose more than 400 mg/dL: notify provider
[facility] Medication administered onsite Melatonin 5 MG Oral Tablet melatonin tablet 5 mg melatonin t ablet 5 mg 12/09/2019 10:00:00 PM EDT 5 mg Oral aborted 5 mg, Oral, Nightly, First dose on Thu12/09/19 at 2200, For 30 days [facility] Medication administered onsite albuterol (PROVENTIL HFA) inhaler 2 puff [id number] 12/09/2019 04:56:48 AM EDT 2 {puff} Inhalation completed 2 puff, Inhalation, Every 6 hours PRN, Wheezing, Starting Thu12/09/19 at 0456, For 4 days
Contact cautionShake the inhaler well before each spray.
[facility] Medication administered onsite Melatonin 5 MG Oral Tablet melatonin tablet 5 mg melatonin t ablet 5 mg 12/09/2019 01:15:00 AM EDT 5 mg Per G Tube completed 5 mg, Per G Tube, Nightly, First dose (after last modification) on Thu12/09/19 at 0115, For 1 dose [facility] Medication administered onsite Oxycodone Hydrochloride 5 MG Oral Tablet oxyCODONE (ROXICODONE) immediate release tablet 5 mg oxyCODONE (ROXICODONE) immediate release tablet 5 mg 12/08/2019 07:00:00 AM EDT 5 mg Oral completed 5 mg, Oral, Once, Alina 12/08/19 at 0700, For 1 dose
Oxycodone immediate release is limited to 10 mg per dose. Higher doses ( only) require Pain Service consultation and approval.
[facility] Medication administered onsite Ibuprofen 20 MG/ML Oral Suspension ibupr ofen (MOTRIN) 100 MG/5ML suspension 400 mg ibuprofen (MOTRIN) 100 MG/5ML suspension 400 mg 12/07/2019 07:48 :50 PM EDT 400 mg Oral aborted 400 mg, Or al, Every 6 hours PRN, Fever, Starting Thu12/07/19 at 1948, For 30 days [facility] Medication administered onsite Acetaminophen 32 MG/ML [...] mg from all sources in 24 hours.
[facility] Medication administered onsite Acetaminophen 10 MG/ML Injectable Soluti on acetaminophen (OFIRMEV) infusion 1,000 mg acetaminophen (OFIRMEV) infusion 1,000 mg 12/07/2019 06:10:46 AM EDT 1000 mg Intravenous aborted 1,000 mg , Intravenous, Administer over 15 Minutes, Every 8 hours PRN, Fever, Starting Thu12/07/19 at 0610, For 1 day
Maximum dose 3 gm daily from all sources
[facility] Medication administered onsite 1 ML Ketorolac Tromethamine 15 MG/ML Car tridge ketorolac (TORADOL) 15 MG/ML injection 15 mg ketorolac (TORADOL) 15 MG/ML injection 15 mg 0 04:30:00 AM EDT 15 mg Intravenous completed 15 mg, Intravenous, Once, Thu12/07/19 at 0430, For 1 dose [facility] Medication administered onsite 1 ML Ketorolac Tromethamine 15 MG/ML Car tridge ketorolac (TORADOL) 15 MG/ML injection 15 mg ketorolac (TORADOL) 15 MG/ML injection 15 mg 0 10:30:00 PM EDT 15 mg Intravenous completed 15 mg, Intravenous, Once, Thu12/06/19 at 2230, For 1 dose [facility] Medication administered onsite dextrose 5 %-0.9 % sodium chloride infusion [id number] 12/06/2019 03:30:00 PM EDT Intravenous aborted at 1 00 mL/hr, Intravenous, Continuous, Starting Thu12/06/19 at 1530, For 30 days [facility] Medication administered onsite 1 ML Ketorolac Tromethamine 15 MG/ML Car tridge ketorolac (TORADOL) 15 MG/ML injection 15 mg ketorolac (TORADOL) 15 MG/ML injection 15 mg 0 03:00:00 PM EDT 15 mg Intravenous completed 15 mg, Intravenous, Once, Thu12/06/19 at 1500, For 1 dose [facility] Medication administered onsite Acetaminophen 325 MG / butalbital 50 MG / Caffeine 40 MG Oral Tablet tkusbarpxn-wtbewhzodyvpl-lknxvddt (FIORICET) per tablet 1 tablet zoxvlimvnb-scowrjopnoozc-rydxyqel (FIORICET) per tablet 1 tablet 12/06/2019 07:45:00 AM EDT 1 {tbl} Oral completed 1 tablet, Oral, Once, Thu12/06/19 at 0745, For 1 dose
Maximum daily dose of acetaminophen is 3,000 mg from all sources in 24 hours.
[facility] Medication administered onsite 1 ML Ketorolac Tromethamine 15 MG/ML Car tridge ketorolac (TORADOL) 15 MG/ML injection 15 mg ketorolac (TORADOL) 15 MG/ML injection 15 mg 0 08:15:00 PM EDT 15 mg Intravenous completed 15 mg, Intravenous, Once, Thu12/05/19 at 2015, For 1 dose [facility] Medication administered onsite 1 ML Ketorolac Tromethamine 15 MG/ML Car tridge ketorolac (TORADOL) 15 MG/ML injection 15 mg ketorolac (TORADOL) 15 MG/ML injection 15 mg 0 07:30:00 AM EDT 15 mg Intravenous completed 15 mg, Intravenous, Once, Thu12/05/19 at 0730, For 1 dose [facility] Medication administered onsite 0.5 ML Sumatriptan 12 MG/ML Injection GARCIA MAtriptan succinate (IMITREX) injection 6 mg SUMAtriptan succinate (IMITREX) injection 6 mg 12/05/2019 04 :30:00 AM EDT 6 mg Subcutaneous completed 6 mg, Sub cutaneous, Once, Thu12/05/19 at 0430, For 1 dose [facility] Medication administered onsite sennosides, INTERMEDIATE 35.2 MG/ML Oral Solution senna (SENOKO T) syrup 10 mL senna (SENOKOT) syrup 10 mL 12/03/2019 10:00:00 PM EDT 10 mL Oral aborted 10 mL, Oral, Nightly, First dose (after last modification) on 12/03/19 at 2200, For 30 doses [facility] Medication administered onsite sodium chloride (preservative [...] 34H Central Line Policy.
[Order 2 End] [facility] Medication administered onsite Ibuprofen 20 MG/ML Oral Suspension ibupr ofen (MOTRIN) 100 MG/5ML suspension 400 mg ibuprofen (MOTRIN) 100 MG/5ML suspension 400 mg 12/03/2019 08:27 :27 AM EDT 400 mg Oral aborted 400 mg, Or al, Every 8 hours PRN, Fever, Starting 12/03/19 at 0827, For 30 days [facility] Medication administered onsite dextrose 50 % IV solution 25 mL [id number] 12/03/2019 12:42:24 AM E DT 25 mL Intravenous aborted 25 mL, Intrav enous, PRN, Low blood sugar, Starting 12/03/19 at 0042, For 30 days
Not for midline administration.
[facility] Medication administered onsite phenol 14 MG/ML Mouthwash phenol (CHLORASEPTIC) 1.4 % liquid 3 spray phenol (CHLORASEPTIC) 1.4 % liquid 3 spray 12/02/2019 07:33:23 PM EDT 3 {spray} Mouth/Throat aborted 3 spray, Mali th/Throat, Every 4 hours PRN, Sore Throat, Starting Thu12/02/19 at 1933, For 30 days [facility] Medication administered onsite Ibuprofen 20 MG/ML Oral Suspension ibupr ofen (MOTRIN) 100 MG/5ML suspension 400 mg ibuprofen (MOTRIN) 100 MG/5ML suspension 400 mg 12/02/2019 02:45 :00 AM EDT 400 mg Oral completed 400 mg, Or al, Once, Thu12/02/19 at 0245, For 1 dose [facility] Medication administered onsite ondansetron (ZOFRAN) injection 4 mg [id number] 11/30/2019 12:25:5 4 PM EDT 4 mg Intravenous aborted 4 mg, In travenous, Every 8 hours PRN, Nausea, Vomiting, Starting Thu11/30/19 at 1225, For 13 days 3 hours [facility] Medication administered onsite Albuterol 1 MG/ML Inhalant Solution albu terol (PROVENTIL) CONTINUOUS nebulizer solution 0.5 % albuterol (PROVENTIL) CONTINUOUS neb ulizer solution 0.5 % 11/30/2019 11:00:00 AM EDT 5 mg/h Nebulization compl eted 5 mg/hr (1 mL/hr), Nebulization, at 1 mL/hr, Once, Thu11/30/19 at 1100, For 1 dose, Recovery [facility] Medication administered onsite fentaNYL (SUBLIMAZE) (PF) injection 12.5 mcg [id number] 11/30/2019 10:48:32 AM EDT 12.5 ug Intravenous aborted 12.5 mcg, Intravenous, Every 5 min PRN, Moderate Pain (Pain Scale Score 4-6), Starting Thu11/30/19 at 1048, For 10 doses, Recovery [facility] Medication administered onsite dextrose 5 % and sodium chloride 0.45 % infusion [id number] 0 11/30/2019 12:00:00 AM EDT Intravenous aborted at 100 mL/hr, Intravenous, Continuous, Starting Thu11/30/19 at 0000, For 30 days [facility] Medication administered onsite Piperonyl Butoxide 40 [...] min; repeat in 1 week if needed.
[facility] Medication administered onsite dexamethasone (DECADRON) injection 10 mg [id number] 11/27/2019 09:00:00 AM EDT 10 mg Intravenous completed 10 mg, Intravenous, Every 8 hours, First dose (after last reorder) on 11/27/19 at 0900, For 5 doses [facility] Medication administered onsite Nystatin [id number] UNT/ML Oral Suspension n ystatin (MYCOSTATIN) [id number] UNIT/ML suspension 500,000 Units nystatin (MYCOSTATIN) [id number] UNIT/ML jeferson pension 500,000 Units 11/26/2019 09:00:00 AM EDT [id number] U Oral aborted 500,000 Units, Oral, Four Times Daily Standard, First dose on 11/26/19 at 0900, For 7 days
Swish and spit
[facility] Medication administered onsite dexamethasone (DECADRON) injection 10 mg [id number] 11/25/2019 07:00:00 PM EDT 10 mg Intravenous completed 10 mg, Intravenous, Every 8 hours, First dose on Thu11/25/19 at 1900, For 5 doses [facility] Medication administered onsite dexamethasone sodium phosphate (DECADRON) 10 MG/ML PF injection 10 mg [id number] 11/25/2019 10:34:03 AM EDT 10 mg Intravenous aborted 10 mg, Intravenous, Every 8 hours, First dose (after last modification) on Thu11/25/19 at 1045, For 5 doses [facility] Medication administered onsite Albuterol 0.833 MG/ML [...] orders will be changed to this unless KEA is selected 'Yes' below.
[facility] Medication administered onsite gabapentin 50 MG/ML Oral Solution gabape ntin (NEURONTIN) 250 MG/5ML solution 600 mg gabapentin (NEURONTIN) 250 MG/5ML solution 600 mg 11/24/2019 01:00:00 AM EDT 600 mg Oral aborted 600 mg, Oral, Ev ryan 8 hours Standard (3 times per day), First dose (after last modification) on Alina 11/24/19 at 0100, For 87 doses [facility] Medication administered onsite gabapentin 50 MG/ML Oral Solution gabape ntin (NEURONTIN) 250 MG/5ML solution 400 mg gabapentin (NEURONTIN) 250 MG/5ML solution 400 mg 11/23/2019 09:00:00 AM EDT 400 mg Oral aborted 400 mg, Oral, Ev ryan 8 hours Standard (3 times per day), First dose (after last modification) on Thu11/23/19 at 0900, For 33 doses [facility] Medication administered onsite Nystatin 100 UNT/MG Topical Powder nystatin (MYCOSTATI N) powder nystatin (MYCOSTATIN) powder 11/20/2019 09:00:00 PM EDT Topical completed Topical, 2 Times Daily, First dose (after last reorder) on 11/20/19 at 2100, For 5 days [facility] Medication administered onsite furosemide (LASIX) injection 20 mg [id number] 11/20/2019 10:00:00 AM EDT 20 mg Intravenous completed 20 mg, I ntravenous, Once, Thu11/20/19 at 1000, For 1 dose [facility] Medication administered onsite 0.3 ML Enoxaparin sodium 100 MG/ML Prefi lled Syringe enoxaparin sodium (LOVENOX) injection 30 mg enoxaparin sodium (LOVENOX) injection 30 mg 11/18/2019 09:00:00 PM EDT 30 mg Subcutaneous aborted 30 mg, Subcutaneous, Every 12 hours Standard (2 times per day), First dose on Thu11/18/19 at 2100, For 64 doses [facility] Medication administered onsite ondansetron (ZOFRAN) injection 4 mg [id number] 11/18/2019 02:10:4 2 PM EDT 4 mg Intravenous completed 4 mg, In travenous, Every 8 hours PRN, Nausea, Vomiting, Starting Thu11/18/19 at 1410, For 11 days 17 hours [facility] Medication administered onsite Methocarbamol 500 MG Oral Tablet methocarbamol (ROBAXI N) tablet 500 mg methocarbamol (ROBAXIN) tablet 500 mg 11/16/2019 05:00:00 PM EDT 50 0 mg Oral aborted 500 mg, Oral, F our Times Daily Standard, First dose on Thu11/16/19 at 1700, For 30 days [facility] Medication administered onsite 50 ML Magnesium [...] *For ICU Stay only, discontinue on transfer*
[facility] Medication administered onsite pantoprazole 4 MG/ML Injectable Solution pantoprazole (PROTONIX) injection 40 mg pantoprazole (PROTONIX) injection 40 mg 11/16/2019 11:45:00 AM EDT 40 mg Intravenous aborted 40 mg, Intrav enous, Daily Standard, First dose on Thu11/16/19 at 1145, For 30 days [facility] Medication administered onsite duloxetine 60 MG [...] 10 seconds before administering through a 12 [place] or larger nasogastric tube.
[facility] Medication administered onsite morphine sulfate (PF) injection 2 mg [id number] 11/16/2019 06:22: 04 AM EDT 2 mg Intravenous aborted 2 mg, In travenous, Every 2 hours PRN, breakthrough pain, Starting Thu11/16/19 at 0622, For 3 days [facility] Medication administered onsite lactated ringers bolus 1,000 mL [id number] 11/16/2019 12:45:00 AM EDT 1000 mL Intravenous completed 1,000 mL , Intravenous, Once, Thu11/16/19 at 0045, For 1 dose [facility] Medication administered onsite Insulin Glargine 100 [...] glucose more than 400 mg/dL: notify provider
[facility] Medication administered onsite Lactulose 667 MG/ML Oral Solution lactulose (CHRONULAC ) solution 30 mL lactulose (CHRONULAC) solution 30 mL 11/14/2019 05:00:00 PM EDT 30 mL Oral aborted 30 mL, Oral, Three Times Da maryana Standard, First dose on Thu11/14/19 at 1700, For 30 days [facility] Medication administered onsite Acetaminophen 32 MG/ML Oral Solution pati taminophen (TYLENOL) 160 MG/5ML solution (ADULT) 650 mg acetaminophen (TYLENOL) 160 MG/5ML solution (ADULT) 65 0 mg 11/14/2019 05:00:00 PM EDT 650 mg Oral aborted 650 mg, Oral, Every 6 hours, First dose on Thu11/14/19 at 1700, For 30 days
Maximum dose of acetaminophen is 3,000 mg from all sources in 24 hours.
[facility] Medication administered onsite tizanidine 4 MG Oral Tablet tizanidine (ZANAFLEX) tabl et 4 mg tizanidine (ZANAFLEX) tablet 4 mg 11/14/2019 12:00:00 PM EDT 4 mg Oral aborted 4 mg, Oral, Every 6 hours, First dose (after last modification) on Thu11/14/19 at 1200, For 7 days [facility] Medication administered onsite morphine sulfate (PF) injection 2 mg [id number] 11/14/2019 11:49: 00 AM EDT 2 mg Intravenous aborted 2 mg, In travenous, Every 2 hours PRN, breakthrough pain, Starting 11/14/19 at 1149, For 3 days [facility] Medication administered onsite NaCl infusion 0.9 % [id number] 11/13/2019 07:15:00 PM EDT Intravenous aborted at 30 mL/hr, Intrave nous, Continuous, Starting 11/13/19 at 1915, For 30 days
KVO
[facility] Medication administered onsite 2 ML Metoclopramide 5 MG/ML Prefilled Sy ringe metoclopramide (REGLAN) injection 10 mg metoclopramide (REGLAN) injection 10 mg 11/13/2019 09:45:00 AM E DT 10 mg Intravenous completed 10 mg, I ntravenous, Once, 11/13/19 at 0945, For 1 dose [facility] Medication administered onsite POLYETHYLENE GLYCOL 3350 [...] due to potential increased risk for aspiration.
[facility] Medication administered onsite NaCl infusion 0.9 % [id number] 11/13/2019 07:30:00 AM EDT Intravenous aborted at 50 mL/hr, Intrave nous, Continuous, Starting 11/13/19 at 0730, For 12 hours [facility] Medication administered onsite NaCl infusion 0.9 % [id number] 11/12/2019 07:30:00 PM EDT Intravenous completed at 50 mL/hr, Intrave nous, Continuous, Starting 11/12/19 at 1930, For 12 hours [facility] Medication administered onsite Hydralazine Hydrochloride 20 MG/ML Injec table Solution hydrALAZINE (APRESOLINE) injection 10 mg hydrALAZINE (APRESOLINE) injection 10 mg 11/12/2019 05 :39:47 PM EDT 10 mg Intravenous aborted 10 m g, Intravenous, Every 6 hours PRN, Other, Starting 11/12/19 at 1739, For 5 days
Dilute in 25-50 ml normal saline. Administer over 30 minutes.
[facility] Medication administered onsite dexamethasone (DECADRON) injection 8 mg [id number] 11/12/19 03:00:00 PM EDT 8 mg Intravenous completed 8 mg, Intr avenous, Every 8 hours, First dose (after last reorder) on 11/12/19 at 1500, For 5 doses [facility] Medication administered onsite morphine sulfate (PF) injection 2 mg [id number] 11/12/2019 08:50: 16 AM EDT 2 mg Intravenous aborted 2 mg, In travenous, Every 2 hours PRN, Severe Pain (Pain Scale Score 7-10), Starting 11/12/19 at 0850, For 3 days [facility] Medication administered onsite NaCl infusion 0.9 % [id number] 11/12/2019 07:15:00 AM EDT Intravenous completed at 50 mL/hr, Intrave nous, Continuous, Starting 11/12/19 at 0715, For 12 hours [facility] Medication administered onsite dexamethasone (DECADRON) injection 8 mg [id number] 11/12/19 07:15:00 AM EDT 8 mg Intravenous completed 8 mg, Intr avenous, Once, 11/12/19 at 0715, For 1 dose [facility] Medication administered onsite fentaNYL (SUBLIMAZE) (PF) injection 25 mcg [id number] 11/12/2019 07:04:00 AM EDT 25 ug Intravenous aborted 25 m cg, Intravenous, Every 2 hours PRN, Severe Pain (Pain Scale Score 7-10), Starting 11/12/19 at 0704, For 3 days [facility] Medication administered onsite Albuterol 0.833 MG/ML [...] this unless KAE is selected 'Yes' below.
[facility] Medication administered onsite Acetaminophen 10 MG/ML Injectable Soluti on acetaminophen (OFIRMEV) infusion 1,000 mg acetaminophen (OFIRMEV) infusion 1,000 mg 11/11/2019 11:30:51 PM EDT 1000 mg Intravenous aborted 1,000 mg , Intravenous, Administer over 15 Minutes, Every 8 hours, First dose (after last modification) on Thu11/11/19 at 2345, For 10 doses
Maximum dose 3 gm daily from all sources
[facility] Medication administered onsite Diclofenac Sodium 0.01 MG/MG Topical Gel Diclofenac Sodium (VOLTAREN) 1 % gel 2 g Diclofenac Sodium (VOLTAREN) 1 % gel 2 g 11/11/2019 09:15:00 PM EDT 2 g Topical aborted 2 g, Topical, Four Times Daily Standard, First dose (after last modification) on Thu11/11/19 at 2115, For 238 doses
Apply to area of pain
[facility] [facility] Med[facility] administered onsite lidocaine (LIDODERM) 5 % patch 1 patch [id number] 0 09:00:00 PM EDT 1 {patch} Transdermal aborted 1 patch, T ransdermal, Every 24 hours, First dose on Thu11/11/19 at 2100, For 58 doses
Apply to back12 hours on - 12 hours off
[facility] Medication administered onsite NaCl infusion 0.9 % [id number] 11/11/2019 07:00:00 PM EDT Intravenous completed at 50 mL/hr, Intrave nous, Continuous, Starting Thu11/11/19 at 1900, For 12 hours [facility] Medication administered onsite Racepinephrine 22.5 MG/ML Inhalant Solut ion racepinephrine HCl (VAPONEPHRINE) 2.25 % inhalation 0.5 mL racepinephrine HCl (VAPONEPHRINE) 2.25 % inhalation 0.5 mL 11/11/2019 03:30:00 PM EDT 0.5 mL Inhalation complet ed 0.5 mL, Inhalation, Once RT, Thu11/11/19 at 1530, For 1 dose [facility] Medication administered onsite 1 ML Ketorolac Tromethamine 15 MG/ML Car tridge ketorolac (TORADOL) 15 MG/ML injection 15 mg ketorolac (TORADOL) 15 MG/ML injection 15 mg 0 03:30:00 PM EDT 15 mg Intravenous completed 15 mg, Intravenous, Once, Thu11/11/19 at 1530, For 1 dose [facility] Medication administered onsite Acetaminophen 10 MG/ML Injectable Soluti on acetaminophen (OFIRMEV) infusion 1,000 mg acetaminophen (OFIRMEV) infusion 1,000 mg 11/11/2019 03:21:45 PM EDT 1000 mg Intravenous aborted 1,000 mg , Intravenous, Administer over 15 Minutes, Every 8 hours PRN, Fever, Starting Thu11/11/19 at 1521, For 1 day
Maximum dose 3 gm daily from all sources
[facility] Medication administered onsite fentaNYL (SUBLIMAZE) (PF) injection 50 mcg [id number] 11/11/2019 02:15:00 PM EDT 50 ug Intravenous completed 50 mcg, Intravenous, Once, Thu11/11/19 at 1415, For 1 dose [facility] Medication administered onsite dexmedetomidine (PRECEDEX) in NaCl 0.9 % infusion 4 mcg/mL 1 [id number] 11/11/2019 12:00:00 PM EDT Intravenous aborted 0.1-1.5 mcg/kg/hr 120.6 kg (3.015-45.225 mL/hr, rounded to 3-45.2 mL/hr), Intravenous, at 3-45.2 mL/hr, Continuous, Starting Thu11/11/19 at 1200, For 30 days
Starting dose = 0.2 mcg/kg/hrTitrate to maintain RASS of 0 Titrate by 0.1-0.2 mcg/kg/hrMax Dose = 1.5 mcg/kg/hr Titrate down if RASS of -1
[facility] Medication administered onsite Albuterol 0.83 MG/ML [...] unless KAE is selected 'Yes' below .
[facility] Medication administered onsite albuterol (PROVENTIL) nebulizer solution 2.5 mg [id number] 11/11/2019 11:26:24 AM EDT 2.5 mg Nebulization completed 2 .5 mg, Nebulization, Every 2 hours PRN, Wheezing, Shortness of Breath, Starting Thu11/11/19 at 1126, For 6 days 19 hours [facility] Medication administered onsite duloxetine 30 MG [...] 10 seconds before administering through a 12 [place] or larger nasogastric tube. Ensure no pellets are left in the syringe; if present, rinse syringe with an additional 15 mL of water.
[facility] Medication administered onsite alteplase (CATHFLO) injection 2 mg [id number] 11/11/2019 05:45:00 AM EDT 2 mg Intracatheter completed 2 mg, Intra catheter, Once, Thu11/11/19 at 0545, For 1 dose
To be instilled by PICC team or IR nurse only for at least 30 minutes
[facility] Medication administered onsite furosemide (LASIX) injection 40 mg [id number] 11/11/2019 04:00:00 AM EDT 40 mg Intravenous completed 40 mg, I ntravenous, Once, Thu11/11/19 at 0400, For 1 dose [facility] Medication administered onsite Melatonin 3 MG Oral Tablet melatonin tablet 3 mg melatonin t ablet 3 mg 11/10/2019 10:00:00 PM EDT 3 mg Oral aborted 3 mg, Oral, Nightly, First dose on Alina 6/11/20 at 2200, For 30 days [facility] Medication administered onsite Carboxymethylcellulose Sodium 5 MG/ML Op hthalmic Solution carboxymethylcellulose PF (REFRESH PLUS) 0.5 % ophthalmic solution 1 drop carboxymethylcellulose PF (REFRESH PLUS) 0.5 % ophthalmic solution 1 drop 11/10/2019 03:00:22 PM EDT 1 [drp] Both Eyes aborted 1 drop, Chin th Eyes, Three Times Daily-PRN, Dry Eyes, Starting Thu11/10/19 at 1500, For 33 days 1 hour [facility] Medication administered onsite dexamethasone (DECADRON) injection 8 mg [id number] 11/10/19 10:45:00 AM EDT 8 mg Intravenous aborted 8 mg, Intrav enous, Every 8 hours, First dose on Thu11/10/19 at 1045, For 3 days [facility] Medication administered onsite duloxetine 30 MG [...] 10 seconds before administering through a 12 [place] or larger nasogastric tube. Ensure no pellets are left in the syringe; if present, rinse syringe with an additional 15 mL of water.
[facility] Medication administered onsite furosemide (LASIX) injection 40 mg [id number] 11/10/2019 04:00:00 AM EDT 40 mg Intravenous completed 40 mg, I ntravenous, Once, Thu11/10/19 at 0400, For 1 dose [facility] Medication administered onsite Psyllium 14.6 MG/ML Oral Suspension psyllium powder 1 packet psyllium powder 1 packet 11/09/2019 09:00:00 PM EDT 1 {packet} Oral aborted 1 packet, Oral, 2 Times Daily, First dose on Thu11/09/19 at 2100, For 30 days [facility] Medication administered onsite Piperacillin 3000 MG / tazobactam 375 MG Injection piperacillin-tazobactam (ZOSYN) IVPB 3.375 g (premix) piperacillin-tazobactam (ZOSYN) IVPB 3.3 75 g (premix) 11/09/2019 01:45:00 PM EDT 3.375 g Intravenous com pleted 3.375 g, Intravenous, Administer over 4 Hours, Every 8 hours, First dose on Thu11/09/19 at 1345, For 7 days [facility] Medication administered onsite fentaNYL (SUBLIMAZE) (PF) injection 25 mcg [id number] 11/09/2019 06:29:33 AM EDT 25 ug Intravenous completed 25 mcg, Intravenous, Every 2 hours PRN, Severe Pain (Pain Scale Score 7-10), Starting Thu11/09/19 at 0629, For 3 days [facility] Medication administered onsite furosemide (LASIX) injection 20 mg [id number] 11/08/2019 09:00:00 PM EDT 20 mg Intravenous completed 20 mg, I ntravenous, 2 Times Daily, First dose on Thu11/08/19 at 2100, For 3 days [facility] Medication administered onsite glycopyrrolate (ROBINUL) injection 0.1 mg [id number] 11/08/2019 09:30:00 AM EDT 0.1 mg Intravenous aborted 0.1 mg, Intravenous, Three Times Daily Standard, First dose (after last modification) on Thu11/08/19 at 0930, For 5 days [facility] Medication administered onsite fentaNYL (SUBLIMAZE) 50 mcg/mL continuous infusion FENTANYLP CANCA 11/08/2019 09:15:00 AM EDT Intravenous aborted 10-200 mcg/hr (0.2-4 mL/hr), Intravenous, at 0.2-4 mL/hr, Continuous, Starting Thu11/08/19 at 0915, For 7 days
Starting dose = 25 mcg/hr
Titrate to maintain BPS less than 6 or VPS less than 4
Increase by 12.5 mcg/hr
Max Dose = 200 mcg/hr
[facility] Medication administered onsite Lisinopril 10 MG Oral Tablet lisinopril (ZESTRIL) tabl et 10 mg lisinopril (ZESTRIL) tablet 10 mg 11/08/2019 09:00:00 AM EDT 10 mg Per NG tub e aborted 10 mg, Per NG tube, Daily Standard, First dose (after last modification) on Thu11/08/19 at 0900, For 58 doses
Check vital signs before administering
[facility] Medication administered onsite tizanidine 4 MG Oral Tablet tizanidine (ZANAFLEX) tabl et 4 mg tizanidine (ZANAFLEX) tablet 4 mg 11/07/2019 10:00:00 PM EDT 4 mg Oral aborted 4 mg, Oral, Nightly, First dose on Thu11/07/19 at 2200, For 30 days [facility] Medication administered onsite fentaNYL (SUBLIMAZE) (PF) injection 25 mcg [id number] 11/07/2019 05:59:56 PM EDT 25 ug Intravenous aborted 25 m cg, Intravenous, Every 2 hours PRN, Severe Pain (Pain Scale Score 7-10), Starting Thu11/07/19 at 1759, For 3 days [facility] Medication administered onsite propofol (DIPRIVAN) bolus [id number] 11/07/2019 03:45:00 PM EDT 100 mg Intravenous completed 100 mg, Intra venous, Once, Thu11/07/19 at 1545, For 1 dose [facility] Medication administered onsite fentaNYL (SUBLIMAZE) (PF) injection 100 mcg [id number] 11/07/2019 03:45:00 PM EDT 100 ug Intravenous completed 10 0 mcg, Intravenous, Once, Thu11/07/19 at 1545, For 1 dose [facility] Medication administered onsite Succinylcholine Chloride 20 MG/ML Inject able Solution succinylcholine (ANECTINE) injection 140 mg succinylcholine (ANECTINE) injection 140 mg 11/07/2019 03:45:00 PM EDT 140 mg Intravenous completed 140 mg, Intravenous, Once, Thu11/07/19 at 1545, For 1 dose [facility] Medication administered onsite 2 ML Midazolam 1 MG/ML Injection midazolam (PF) (VERSE D) injection 2 mg midazolam (PF) (VERSED) injection 2 mg 11/07/2019 03:45:00 PM EDT 2 mg Intravenous completed 2 mg, Intrave nous, Once, Thu11/07/19 at 1545, For 1 dose [facility] Medication administered onsite propofol (DIPRIVAN) 1000 MG/100ML infusion [id number] 11/07/2019 03:21:26 PM EDT completed Starti ng Thu11/07/19 at 1521, For 1 dose
German Dixon : cabinet override
German Dixon : cabinet override
[facility] Medication administered onsite Succinylcholine Chloride 20 MG/ML Inject able Solution succinylcholine (ANECTINE) 20 MG/ML injection succinylcholine (ANECTINE) 20 MG/ML injection 11/07/19 03:17:18 PM EDT completed Starting Thu11/07/19 at 1517, For 1 dose
German Dixon : cabinet override
[facility] Medication administered onsite 2 ML Midazolam 1 MG/ML Injection midazolam (PF) (VERSE D) 2 MG/2ML injection midazolam (PF) (VERSED) 2 MG/2ML injection 11/07/2019 03:17:09 PM EDT completed Starting Thu11/07/19 at 1517, For 1 dose
German Dixon : cabinet override
[facility] Medication administered onsite fentaNYL (SUBLIMAZE) 100 MCG/2ML (PF) injection [id number] 11/07/2019 03:16:58 PM EDT completed Starti ng Thu11/07/19 at 1516, For 1 dose
German Dixon : cabinet override
[facility] Medication administered onsite Atenolol 25 MG Oral Tablet atenolol (TENORMIN) tablet 25 mg atenolol (TENORMIN) tablet 25 mg 11/07/2019 11:30:00 AM EDT 25 mg Per NG tube aborted 25 mg, Per NG tube, Daily Standard, First dose (after last modification) on Thu11/07/19 at 1130, For 58 doses
Check vital signs before administering
[facility] Medication administered onsite Docusate Sodium 10 MG/ML Oral Suspension docusate (COLACE) 50 MG/5ML liquid 100 mg docusate (COLACE) 50 MG/5ML liquid 100 mg 11/06/2019 09:00:00 PM EDT 100 mg Oral aborted 100 mg, Or al, 2 Times Daily, First dose on 11/06/19 at 2100, For 117 doses [facility] Medication administered onsite insulin lispro (HUMALOG) injection HIGH DOSE TUBE CONT INSULIN patients 1-16 Units [id number] 11/06/2019 12:00:00 PM EDT Subcutaneous aborted 1-16 Units, Subcutaneous, Every 4 hours, First dose on 11/06/19 at 1200, For 353 doses
Nursing MUST open the 'SQ Insulin Dosing Charts' Sidebar Report, or, the Patient Summary or Summary Report within the ED.
[facility] Medication administered onsite ondansetron (ZOFRAN) injection 4 mg [id number] 11/05/2019 08:57:4 3 PM EDT 4 mg Intravenous completed 4 mg, In travenous, Every 8 hours PRN, Nausea, Vomiting, Starting 11/05/19 at 2057, For 12 days 10 hours [facility] Medication administered onsite insulin lispro (HUMALOG) injection CUSTO MIZABLE DOSE INSULIN patients 1-40 Units [id number] 11/05/2019 12:00:00 PM EDT Subcutaneous aborted 1-40 [...] 13
>401 give (units) AND NOTIFY: 13 [facility] Medication administered onsite heparin (porcine) 5000 UNIT/ML injection 5,000 Units [id number] 11/05/2019 09:00:00 AM EDT 5000 U Subcutaneous aborted 5,000 Units, Subcutaneous, Three Times Daily Standard, First dose on 11/05/19 at 0900, For 30 days [facility] Medication administered onsite potassium chloride (K-DUR) dissolvable tablet 40 mEq [id number] 11/05/2019 05:15:00 AM EDT 40 meq Oral completed 40 mEq, Oral, Once, 11/05/19 at 0515, For 1 dose
May be dissolved in water for patients with a G-Tube or unable to swallow. If concern for clogging G-Tube, may contact Pharmacy to switch formulation to a powder packet.
[facility] Medication administered onsite sennosides, INTERMEDIATE 35.2 MG/ML Oral Solution senna (SENOKO T) syrup 10 mL senna (SENOKOT) syrup 10 mL 11/04/2019 10:00:00 PM EDT 10 mL Oral aborted 10 mL, Oral, Nightly, First dose (after last modification) on Thu11/04/19 at 2200, For 30 doses [facility] Medication administered onsite lidocaine (XYLOCAINE) 1 % injection 5 mL [id number] 11/04/2019 05:49:28 PM EDT 5 mL Subcutaneous aborted 5 m L, Subcutaneous, Once PRN, for PICC insertion, Starting Thu11/04/19 at 1749, For 30 days [facility] Medication administered onsite sodium chloride (preservative free) 0.9 % flush 10 mL 11/04/2019 05:49:28 PM EDT 10 mL Intravenous aborted [facility] Medication administered onsite Bisacodyl 10 MG Rectal Suppository bisacodyl (DULCOLAX ) suppository 10 mg bisacodyl (DULCOLAX) suppository 10 mg 11/04/2019 03:28:41 PM EDT 10 mg Rectal aborted 10 mg, Rectal, Daily PRN, Constipation, Starting Thu11/04/19 at 1528, For 39 days [facility] Medication administered onsite fentaNYL (SUBLIMAZE) (PF) injection 25 mcg [id number] 11/04/2019 03:23:22 PM EDT 25 ug Intravenous completed 25 mcg, Intravenous, Every 2 hours PRN, Severe Pain (Pain Scale Score 7-10), Starting Thu11/04/19 at 1523, For 3 days [facility] Medication administered onsite Acetaminophen 32 MG/ML Oral Solution pati taminophen (TYLENOL) 160 MG/5ML solution (ADULT) 1,000 mg acetaminophen (TYLENOL) 160 MG/5ML solution (ADULT) 1, 000 mg 11/04/2019 11:15:00 AM EDT 1000 mg Oral aborted 1,000 mg, Oral, Every 8 hours, First dose on Thu11/04/19 at 1115, For 30 days
Maximum dose of acetaminophen is 3,000 mg from all sources in 24 hours.
[facility] Medication administered onsite furosemide (LASIX) 1 [...] if systolic blood pressure less than: 90 [facility] Medication administered onsite furosemide (LASIX) injection 20 mg [id number] 11/04/2019 09:45:00 AM EDT 20 mg Intravenous completed 20 mg, I ntravenous, Once, Thu11/04/19 at 0945, For 1 dose [facility] Medication administered onsite gabapentin 50 MG/ML Oral Solution gabape ntin (NEURONTIN) 250 MG/5ML solution 300 mg gabapentin (NEURONTIN) 250 MG/5ML solution 300 mg 09/2019 09:00:00 AM EDT 300 mg Oral aborted 300 mg, Oral, Every 8 hours Standard (3 times per day), First dose on Thu11/04/19 at 0900, For 30 days [facility] Medication administered onsite dexmedetomidine (PRECEDEX) in NaCl 0.9 % infusion 4 mcg/mL 1 [id number] 11/04/2019 08:15:00 AM EDT Intravenous aborted 0.1-1.5 mcg/kg/hr 125.6 kg (3.14-47.1 mL/hr, rounded to 3.1-47.1 mL/hr), Intravenous, at 3.1-47.1 mL/hr, Continuous, Starting Thu11/04/19 at 0815, For 30 days
Starting dose = 0.2 mcg/kg/hrTitrate to maintain RASS of -1 Titrate by 0.1-0.2 mcg/kg/hrMax Dose = 1.5 mcg/kg/hr Titrate down if RASS of -2
[facility] Medication administered onsite pantoprazole 4 MG/ML Injectable Solution pantoprazole (PROTONIX) injection 40 mg pantoprazole (PROTONIX) injection 40 mg 11/04/2019 06:45:00 AM EDT 40 mg Intravenous aborted 40 mg, Intrav enous, Daily Standard, First dose on Thu11/04/19 at 0645, For 30 days [facility] Medication administered onsite Acetaminophen 10 MG/ML Injectable Soluti on acetaminophen (OFIRMEV) infusion 1,000 mg acetaminophen (OFIRMEV) infusion 1,000 mg 11/04/2019 06:45:00 AM EDT 1000 mg Intravenous aborted 1,000 mg , Intravenous, Administer over 15 Minutes, Every 8 hours, First dose (after last reorder) on Thu11/04/19 at 0645, For 1 day
Maximum dose 3 gm daily from all sources
[facility] Medication administered onsite potassium chloride (K-DUR) dissolvable tablet 20 mEq [id number] 11/04/2019 06:30:00 AM EDT 20 meq Oral aborted 20 mEq, Oral, Four Times Daily Standard, First dose on Thu11/04/19 at 0630, For 30 days
May be dissolved in water for patients with a G-Tube or unable to swallow. If concern for clogging G-Tube, may contact Pharmacy to switch formulation to a powder packet.
[facility] Medication administered onsite furosemide (LASIX) injection 20 mg [id number] 11/04/2019 03:30:00 AM EDT 20 mg Intravenous completed 20 mg, I ntravenous, Once, Thu11/04/19 at 0330, For 1 dose [facility] Medication administered onsite furosemide (LASIX) injection 20 mg [id number] 11/04/2019 12:15:00 AM EDT 20 mg Intravenous completed 20 mg, I ntravenous, Once, Thu11/04/19 at 0015, For 1 dose [facility] Medication administered onsite furosemide (LASIX) injection 20 mg [id number] 11/03/2019 06:45:00 PM EDT 20 mg Intravenous completed 20 mg, I ntravenous, Once, Thu11/03/19 at 1845, For 1 dose [facility] Medication administered onsite propofol (DIPRIVAN) infusion 1,000 mg/100 mL [id number] 11/03/2019 03:30:00 PM EDT Intravenous aborted 10-8 0 mcg/kg/min 123.8 kg (7.428-59.424 mL/hr, rounded to 7.4-59.4 mL/hr), Intravenous, at 7.4- 59.4 mL/hr, Continuous, Starting Alina 11/03/19 at 1530, For 30 days
Starting dose = 10 mcg/kg/minTitrate to maintain RASS of 1 Increase by 5-10 mcg/kg/minMax Dose = 80 mcg/kg/min Titrate down if RASS of -3
[facility] Medication administered onsite fentaNYL (SUBLIMAZE) 50 mcg/mL continuous infusion FENTANYLP CANCA 11/03/2019 03:30:00 PM EDT Intravenous aborted 10-200 mcg/hr (0.2-4 mL/hr), Intravenous, at 0.2-4 mL/hr, Continuous, Starting [place]ina 11/03/19 at 1530, For 7 days
Starting dose = 25 mcg/hrTitrate to maintain BPS less than 6 or VPS less than 4Increase by 12.5 mcg/hrMax Dose = 300 mcg/hr
[facility] Medication administered onsite fentaNYL (SUBLIMAZE) bolus from bag 25 mcg FENTANYLPCANCA 11/03/2019 03:22:09 PM EDT 25 ug Intravenous aborted 25 m cg, Intravenous, Every 2 hours PRN, Severe Pain (Pain Scale Score 7-10), Starting Alina 11/03/19 at 1522, For 3 days [facility] Medication administered onsite furosemide (LASIX) injection 20 mg [id number] 11/03/2019 02:45:00 PM EDT 20 mg Intravenous completed 20 mg, I ntravenous, Once, [place] 11/03/19 at 1445, For 1 dose [facility] Medication administered onsite Oxycodone Hydrochloride 1 MG/ML Oral Valarie ution oxyCODONE (ROXICODONE) 5 MG/5ML solution 10 mg oxyCODONE (ROXICODONE) 5 MG/5ML solution 10 mg 020 02:14:21 PM EDT 10 mg Oral completed 10 mg, Oral, Once PRN, Moderate Pain (Pain Scale Score 4-6), Starting Alina 11/03/19 at 1414, For 1 dose [facility] Medication administered onsite fentaNYL (SUBLIMAZE) (PF) injection 50 mcg [id number] 11/03/2019 12:27:12 PM EDT 50 ug Intravenous aborted 50 m cg, Intravenous, Every 2 hours PRN, Moderate Pain (Pain Scale Score 4-6), Severe Pain (Pain Scale Score 7-10), Starting Alina 11/03/19 at 1227, For 31 hours [facility] Medication administered onsite insulin lispro (HUMALOG) injection CUSTO MIZABLE DOSE INSULIN patients 1-40 Units [id number] 11/03/2019 12:00:00 PM EDT Subcutaneous aborted 1-40 [...] 12
>401 give (units) AND NOTIFY: 12 [facility] Medication administered onsite Glucagon 1 MG Injection glucagon (human recombinant) ( GLUCAGEN) injection 1 mg glucagon (human recombinant) (GLUCAGEN) injection 1 mg 11/03/2019 09:49:40 AM EDT 1 mg Intramuscular aborted 1 mg, Intramuscular, PRN, for glucose <55 without IV access, Starting Thu11/03/19 at 0949, For 40 days 6 hours [facility] Medication administered onsite Glucose 0.417 MG/MG Oral Gel glucose (GLUTOSE) 40 % or al gel 15 g glucose (GLUTOSE) 40 % oral gel 15 g 11/03/2019 09:49:40 AM EDT 15 g Oral aborted 15 g, Oral, PRN, Low blood s ugar, for gluose 55-69 mg/dl and able to take PO, Starting Thu11/03/19 at 0949, For 40 days 6 hours [facility] Medication administered onsite furosemide (LASIX) injection 10 mg [id number] 11/03/2019 09:45:00 AM EDT 10 mg Intravenous completed 10 mg, I ntravenous, Once, Thu11/03/19 at 0945, For 1 dose [facility] Medication administered onsite Nystatin 100 UNT/MG Topical Powder nystatin (MYCOSTATI N) powder nystatin (MYCOSTATIN) powder 11/03/2019 09:00:00 AM EDT Topical completed Topical, 2 Times Daily, First dose on Thu11/03/19 at 0900, For 34 doses [facility] Medication administered onsite Docusate Sodium 10 MG/ML Oral Suspension docusate (COLACE) 50 MG/5ML liquid 100 mg docusate (COLACE) 50 MG/5ML liquid 100 mg 11/02/2019 09:00:00 PM EDT 100 mg Oral aborted 100 mg, Or al, 2 Times Daily, First dose on Thu11/02/19 at 2100, For 30 days [facility] Medication administered onsite insulin regular (HumuLIN R) 100 units in sodium chloride 0.9 % 100 mL (1 unit/mL) infusion (premix) [id number] 11/02/2019 02:45:00 PM EDT 1 U/h Intravenous aborted 1 Units/hr (1 mL/hr), Intravenous, at 1 mL/hr, Continuous, Starting Thu11/02/19 at 1445, For 30 days
Call for titration.
[facility] Medication administered onsite insulin regular (HumuLIN R) 100 units in sodium chloride 0.9 % 100 mL (1 unit/mL) infusion (premix) [id number] 11/02/2019 01:45:00 PM EDT 0.05 U/kg/h Intravenous aborted 0.05 Units/kg /hr 118.8 kg (5.94 mL/hr, rounded to 5.9 mL/hr), Intravenous, at 5.9 mL/hr, Continuous, Starting Thu11/02/19 at 1345, For 30 days
Starting dose = 0.1 unit/kg/hr Titrate to maintain BG [id number] by 0.01 units/kg/hrMax Dose = 0.14 unit/kg/hrTitrate down if BG <= 90
[facility] Medication administered onsite phenylephrine (AKHIL-SYNEPHRINE) in NaCl 0.9 % infusion 400 mc g/mL (premix) 11/02/2019 01:45:00 PM EDT 10 ug/min Intravenous aborted 10 mcg/min (1.5 mL/hr), Intravenous, at 1.5 mL/hr, Continuous, Starting Thu11/02/19 at 1345, For 30 days
Starting dose = 10 mcg/minTitrate to maintain MAP of 60Increase by 10-20 mcg/minMax Dose = 400 mcg/min Titrate down if MAP of 70
[facility] Medication administered onsite Acetaminophen 10 MG/ML Injectable Soluti on acetaminophen (OFIRMEV) infusion 1,000 mg acetaminophen (OFIRMEV) infusion 1,000 mg 11/02/2019 01:45:00 PM EDT 1000 mg Intravenous completed 1,000 mg , Intravenous, Administer over 15 Minutes, Every 8 hours, First dose (after last modification) on Thu11/02/19 at 1345, For 1 day
Maximum dose 3 gm daily from all sources
[facility] Medication administered onsite calcium gluconate in [...] *For ICU Stay only, discontinue on transfer*
[facility] Medication administered onsite 50 ML Magnesium [...] *For ICU Stay only, discontinue on transfer*
[facility] Medication administered onsite pantoprazole 4 MG/ML Injectable Solution pantoprazole (PROTONIX) injection 40 mg pantoprazole (PROTONIX) injection 40 mg 11/02/2019 05:15:00 AM EDT 40 mg Intravenous completed 40 mg, Intrav enous, Once, Thu11/02/19 at 0515, For 1 dose
Dilute with 10 mL of 0.9% NaCl.Give IVP over 2 minutes. Flush before and after.
[facility] Medication administered onsite Acetaminophen 10 MG/ML Injectable Soluti on acetaminophen (OFIRMEV) infusion 1,000 mg acetaminophen (OFIRMEV) infusion 1,000 mg 11/01/2019 10:15:56 PM EDT 1000 mg Intravenous aborted 1,000 mg , Intravenous, Administer over 15 Minutes, Every 8 hours PRN, Fever, Starting Thu11/01/19 at 2215, For 1 day
Maximum dose 3 gm daily from all sources
[facility] Medication administered onsite fentaNYL (SUBLIMAZE) 50 mcg/mL continuous infusion FENTANYLP CANCA 11/01/2019 10:15:00 PM EDT Intravenous aborted 10-200 mcg/hr (0.2-4 mL/hr), Intravenous, at 0.2-4 mL/hr, Continuous, Starting Thu11/01/19 at 2215, For 7 days
Starting dose = 25 mcg/hrTitrate to maintain BPS less than 6 or VPS less than 4Increase by 12.5 mcg/hrMax Dose = 300 mcg/hr
[facility] Medication administered onsite norepinephrine (LEVOPHED) 8 mg in dextrose 5 % 250 mL infusi on (32 mcg/mL) 11/01/2019 10:00:00 PM EDT Intravenous aborted 2-20 mcg/min (3.75- 37.5 mL/hr, rounded to 3.8-37.5 mL/hr), Intravenous, at 3.8-37.5 mL/hr, Continuous, Starting Thu11/01/19 at 2200, For 30 days [facility] Medication administered onsite 2 ML Midazolam 1 MG/ML Injection midazolam (PF) (VERSE D) injection 2 mg midazolam (PF) (VERSED) injection 2 mg 11/01/2019 09:55:50 PM EDT 2 mg Intravenous aborted 2 mg, Intrave nous, Every 2 hours PRN, Sedation, Starting Thu11/01/19 at 2155, For 2 days [facility] Medication administered onsite Calcium Chloride 0.0014 MEQ/ML / Potassi um Chloride 0.004 MEQ/ML / Sodium Chloride 0.103 MEQ/ML / Sodium Lactate 0.028 MEQ/ML Injectable Solution lactated ringers infusion lactated ringers infusion 11/01/2019 08:00:00 PM EDT 30 mL/h Intravenous aborted at 30 mL /hr, Intravenous, Continuous, Starting Thu11/01/19 at 2000, For 30 days [facility] Medication administered onsite fentaNYL (SUBLIMAZE) (PF) injection 25 mcg 9020-8431-29 11/01/2019 07:43:36 PM EDT 25 ug Intravenous aborted 25 m cg, Intravenous, Every 2 hours PRN, Moderate Pain (Pain Scale Score 4-6), Severe Pain (Pain Scale Score 7-10), Starting Thu11/01/19 at 1943, For 3 days [facility] Medication administered onsite iohexol (OMNIPAQUE) 300 MG/ML contrast injection 100 mL 17710 3111/01/2019 07:00:00 PM EDT 100 mL Given by IV completed 100 mL, Given by IV, 1 TIME IMAGING, Thu11/01/19 at 1900, For 1 dose [facility] Medication administered onsite 0.5 ML Bordetella [...] 11 years and no previous pertussis allergy.
[facility] Medication administered onsite Acetaminophen 325 MG / Oxycodone Hydroch loride 7.5 MG Oral Tablet Oxycodone- Acetaminophen 7.5-325 MG Oxycodone-Acetaminophen 7.5-325 MG 11/01/2019 12:00:00 AM EDT 1.0 {tablet_as_needed} suspended Oxycodone-Acetaminophen 7.5- 325 MG eCW1 ([facility]) Acetaminophen 325 MG / Oxycodone Hydroch loride 7.5 MG Oral Tablet Oxycodone- Acetaminophen 7.5-325 MG Oxycodone-Acetaminophen 7.5-325 MG 11/01/2019 12:00:00 AM EDT 1.0 {tablet_as_needed} active Oxycodone-Acetaminophen 7.5-325 MG eCW1 ([facility]) Acetaminophen 325 MG / Oxycodone Hydroch loride 7.5 MG Oral Tablet Oxycodone- Acetaminophen 7.5-325 MG Oxycodone-Acetaminophen 7.5-325 MG 11/01/2019 12:00:00 AM EDT 1.0 {tablet_as_needed} suspended Oxycodone-Acetaminophen 7.5- 325 MG eCW1 ([facility]) Acetaminophen 325 MG / Oxycodone Hydroch loride 7.5 MG Oral Tablet Oxycodone- Acetaminophen 7.5-325 MG Oxycodone-Acetaminophen 7.5-325 MG 11/01/2019 12:00:00 AM EDT 1.0 {tablet_as_needed} suspended Oxycodone-Acetaminophen 7.5- 325 MG eCW1 ([facility]) Acetaminophen 325 MG / Oxycodone Hydroch loride 7.5 MG Oral Tablet Oxycodone- Acetaminophen 7.5-325 MG Oxycodone-Acetaminophen 7.5-325 MG 11/01/2019 12:00:00 AM EDT 1.0 {tablet_as_needed} active Oxycodone-Acetaminophen 7.5-325 MG eCW1 ([facility]) Acetaminophen 325 MG / Oxycodone Hydroch loride 7.5 MG Oral Tablet Oxycodone- Acetaminophen 7.5-325 MG Oxycodone-Acetaminophen 7.5-325 MG 11/01/2019 12:00:00 AM EDT 1.0 {tablet_as_needed} suspended Oxycodone-Acetaminophen 7.5- 325 MG eCW1 ([facility]) Acetaminophen 325 MG / Oxycodone Hydroch loride 7.5 MG Oral Tablet Oxycodone- Acetaminophen 7.5-325 MG Oxycodone-Acetaminophen 7.5-325 MG 11/01/2019 12:00:00 AM EDT 1.0 {tablet_as_needed} suspended Oxycodone-Acetaminophen 7.5- 325 MG eCW1 ([facility]) Acetaminophen 325 MG / Oxycodone Hydroch loride 7.5 MG Oral Tablet Oxycodone- Acetaminophen 7.5-325 MG Oxycodone-Acetaminophen 7.5-325 MG 11/01/2019 12:00:00 AM EDT 1.0 {tablet_as_needed} suspended Oxycodone-Acetaminophen 7.5- 325 MG eCW1 ([facility]) Acetaminophen 325 MG / Oxycodone Hydroch loride 7.5 MG Oral Tablet Oxycodone- Acetaminophen 7.5-325 MG Oxycodone-Acetaminophen 7.5-325 MG 11/01/2019 12:00:00 AM EDT 1.0 {tablet_as_needed} suspended Oxycodone-Acetaminophen 7.5- 325 MG eCW1 ([facility]) Acetaminophen 325 MG / Oxycodone Hydroch loride 7.5 MG Oral Tablet Oxycodone- Acetaminophen 7.5-325 MG Oxycodone-Acetaminophen 7.5-325 MG 11/01/2019 12:00:00 AM EDT 1.0 {tablet_as_needed} active Oxycodone-Acetaminophen 7.5-325 MG eCW1 ([facility]) Acetaminophen 325 MG / Oxycodone Hydroch loride 7.5 MG Oral Tablet Oxycodone- Acetaminophen 7.5-325 MG Oxycodone-Acetaminophen 7.5-325 MG 11/01/2019 12:00:00 AM EDT 1.0 {tablet_as_needed} active Oxycodone-Acetaminophen 7.5-325 MG eCW1 ([facility]) Acetaminophen 325 MG / Oxycodone Hydroch loride 7.5 MG Oral Tablet Oxycodone- Acetaminophen 7.5-325 MG Oxycodone-Acetaminophen 7.5-325 MG 11/01/2019 12:00:00 AM EDT 1.0 {tablet_as_needed} suspended Oxycodone-Acetaminophen 7.5- 325 MG eCW1 ([facility]) Acetaminophen 325 MG / Oxycodone Hydroch loride 7.5 MG Oral Tablet Oxycodone- Acetaminophen 7.5-325 MG Oxycodone-Acetaminophen 7.5-325 MG 11/01/2019 12:00:00 AM EDT 1.0 {tablet_as_needed} suspended Oxycodone-Acetaminophen 7.5- 325 MG eCW1 ([facility]) Acetaminophen 325 MG / Oxycodone Hydroch loride 7.5 MG Oral Tablet Oxycodone- Acetaminophen 7.5-325 MG Oxycodone-Acetaminophen 7.5-325 MG 11/01/2019 12:00:00 AM EDT 1.0 {tablet_as_needed} active Oxycodone-Acetaminophen 7.5-325 MG eCW1 ([facility]) Acetaminophen 325 MG / Oxycodone Hydroch loride 7.5 MG Oral Tablet Oxycodone- Acetaminophen 7.5-325 MG Oxycodone-Acetaminophen 7.5-325 MG 11/01/2019 12:00:00 AM EDT 1.0 {tablet_as_needed} suspended Oxycodone-Acetaminophen 7.5- 325 MG eCW1 ([facility]) Acetaminophen 325 MG / Oxycodone Hydroch loride 7.5 MG Oral Tablet Oxycodone- Acetaminophen 7.5-325 MG Oxycodone-Acetaminophen 7.5-325 MG 11/01/2019 12:00:00 AM EDT 1.0 {tablet_as_needed} suspended Oxycodone-Acetaminophen 7.5- 325 MG eCW1 ([facility]) Acetaminophen 325 MG / Oxycodone Hydroch loride 7.5 MG Oral Tablet Oxycodone- Acetaminophen 7.5-325 MG Oxycodone-Acetaminophen 7.5-325 MG 11/01/2019 12:00:00 AM EDT 1.0 {tablet_as_needed} active Oxycodone-Acetaminophen 7.5-325 MG eCW1 ([facility]) Prednisone 20 MG Oral Tablet PredniSONE 20 MG PredniSONE 20 MG 09/27/2019 12:00:00 AM EDT active 2 tablet eCW1 ([facility]) Magnesium 400 MG UNK 09/27/2019 12:00:00 AM EDT active Magnesium 400 MG [facility]CW1 ([facility]) Acetaminophen 325 MG Oral Tablet [Tylenol] Tylenol 325 MG Ty lenol 325 MG 09/27/2019 12:00:00 AM EDT 2.0 {tablet_as_needed} active Tylenol 325 MG eCW1 ([facility]) Capsaicin 0.48722 MG/MG / Lidocaine Hydr ochloride 0.005 MG/MG / Menthol 0.05 MG/MG / methyl salicylate 0.2 MG/MG Transdermal Patch Pncc-Pjenv-Mcvqqrmgi 0.5-0.035-5-20 % Ryhg-Szgti-Oiotkivvs 0.5-0.035-5-20 % 09/27/2019 12:00 :00 AM EDT active Gmox-Ilgog-Owttpm ine 0.5-0.035-5-20 % eCW1 ([facility]) Magnesium 400 MG UNK 09/27/2019 12:00:00 AM EDT active Magnesium 400 MG eCW1 ([facility] [place]) Prednisone 10 MG Oral Tablet PredniSONE 10 MG PredniSONE 10 MG 09/27/2019 12:00:00 AM EDT 1.0 {tablet} active Pr edniSONE 10 MG eCW1 ([facility]) Acetaminophen 325 MG Oral Tablet [Tylenol] Tylenol 325 MG Ty lenol 325 MG 09/27/2019 12:00:00 AM EDT 2.0 {tablet_as_needed} active Tylenol 325 MG eCW1 ([facility] [place]) Magnesium 400 MG UNK 09/27/2019 12:00:00 AM EDT active Magnesium 400 MG eCW1 ([facility] [place]) Capsaicin 0.70590 MG/MG / Lidocaine Hydr ochloride 0.005 MG/MG / Menthol 0.05 MG/MG / methyl salicylate 0.2 MG/MG Transdermal Patch Flrx-Wfrnz-Efmwtprgx 0.5-0.035-5-20 % Lvkd-Ocyyi-Ynnaspbwi 0.5-0.035-5-20 % 09/27/2019 12:00 :00 AM EDT active Cqft-Vslaa-Jofgbh ine 0.5-0.035-5-20 % eCW1 ([facility]) Acetaminophen 325 MG Oral Tablet [Tylenol] Tylenol 325 MG Ty lenol 325 MG 09/27/2019 12:00:00 AM EDT active 2 tablet as needed eCW1 ([facility]) Acetaminophen 325 MG Oral Tablet [Tylenol] Tylenol 325 MG Ty lenol 325 MG 09/27/2019 12:00:00 AM EDT 2.0 {tablet_as_needed} active Tylenol 325 MG eCW1 ([facility] [place]) Prednisone 10 MG Oral Tablet PredniSONE 10 MG PredniSONE 10 MG 09/27/2019 12:00:00 AM EDT 1.0 {tablet} active Pr edniSONE 10 MG eCW1 ([facility]) Acetaminophen 325 MG Oral Tablet [Tylenol] Tylenol 325 MG Ty lenol 325 MG 09/27/2019 12:00:00 AM EDT 2.0 {tablet_as_needed} active Tylenol 325 MG eCW1 ([facility]) Prednisone 20 MG Oral Tablet PredniSONE 20 MG PredniSONE 20 MG 09/27/2019 12:00:00 AM EDT 2.0 {tablet} active Pr edniSONE 20 MG eCW1 ([facility]) Prednisone 10 MG Oral Tablet PredniSONE 10 MG PredniSONE 10 MG 09/27/2019 12:00:00 AM EDT 1.0 {tablet} active Pr edniSONE 10 MG eCW1 ([facility]) Prednisone 10 MG Oral Tablet PredniSONE 10 MG PredniSONE 10 MG 09/27/2019 12:00:00 AM EDT 1.0 {tablet} active Pr edniSONE 10 MG eCW1 ([facility]) Capsaicin 0.56321 MG/MG / Lidocaine Hydr ochloride 0.005 MG/MG / Menthol 0.05 MG/MG / methyl salicylate 0.2 MG/MG Transdermal Patch Jnkr-Mqguk-Fcuswreby 0.5-0.035-5-20 % Utkz-Bnmtc-Egzqufypq 0.5-0.035-5-20 % 09/27/2019 12:00 :00 AM EDT active 1 patch to skin as needed eCW1 ([facility]) Capsaicin 0.34485 MG/MG / Lidocaine Hydr ochloride 0.005 MG/MG / Menthol 0.05 MG/MG / methyl salicylate 0.2 MG/MG Transdermal Patch Vhmz-Reyrl-Oswgnwdlx 0.5-0.035-5-20 % Gryo-Hayeq-Xdcgwssnt 0.5-0.035-5-20 % 09/27/2019 12:00 :00 AM EDT active Czwh-Xgazc-Ixkvoj ine 0.5-0.035-5-20 % eCW1 ([facility]) Prednisone 20 MG Oral Tablet PredniSONE 20 MG PredniSONE 20 MG 09/27/2019 12:00:00 AM EDT 2.0 {tablet} active Pr edniSONE 20 MG eCW1 ([facility]) Acetaminophen 325 MG / Oxycodone Hydroch loride 7.5 MG Oral Tablet Oxycodone- Acetaminophen 7.5-325 MG Oxycodone-Acetaminophen 7.5-325 MG 09/27/2019 12:00:00 AM EDT active 1 tablet as neede d eCW1 ([facility]) Prednisone 10 MG Oral Tablet PredniSONE 10 MG PredniSONE 10 MG 09/27/2019 12:00:00 AM EDT 1.0 {tablet} active Pr edniSONE 10 MG eCW1 ([facility]) Capsaicin 0.43121 MG/MG / Lidocaine Hydr ochloride 0.005 MG/MG / Menthol 0.05 MG/MG / methyl salicylate 0.2 MG/MG Transdermal Patch Lpqk-Taaal-Kifriliru 0.5-0.035-5-20 % Eawl-Pfvxt-Zxupeerre 0.5-0.035-5-20 % 09/27/2019 12:00 :00 AM EDT active Zdlb-Eclgk-Snfrdm ine 0.5-0.035-5-20 % eCW1 ([facility]) Magnesium 400 MG UNK 09/27/2019 12:00:00 AM EDT a ctive 1 cap eCW1 ([facility]) Capsaicin 0.65969 MG/MG / Lidocaine Hydr ochloride 0.005 MG/MG / Menthol 0.05 MG/MG / methyl salicylate 0.2 MG/MG Transdermal Patch Leyx-Spsju-Yzhhhyduy 0.5-0.035-5-20 % Buas-Bjgwr-Uxpatajih 0.5-0.035-5-20 % 09/27/2019 12:00 :00 AM EDT active 1 patch to skin as needed eCW1 ([facility]) Prednisone 20 MG Oral Tablet PredniSONE 20 MG PredniSONE 20 MG 09/27/2019 12:00:00 AM EDT 2.0 {tablet} active Pr edniSONE 20 MG eCW1 ([facility]) Acetaminophen 325 MG Oral Tablet [Tylenol] Tylenol 325 MG Ty lenol 325 MG 09/27/2019 12:00:00 AM EDT 2.0 {tablet_as_needed} active Tylenol 325 MG eCW1 ([facility]) Prednisone 20 MG Oral Tablet PredniSONE 20 MG PredniSONE 20 MG 09/27/2019 12:00:00 AM EDT 2.0 {tablet} active Pr edniSONE 20 MG eCW1 ([facility]) Magnesium 400 MG UNK 09/27/2019 12:00:00 AM EDT a ctive 1 cap eCW1 ([facility]) Prednisone 10 MG Oral Tablet PredniSONE 10 MG PredniSONE 10 MG 09/27/2019 12:00:00 AM EDT 1.0 {tablet} active Pr edniSONE 10 MG eCW1 ([facility]) Capsaicin 0.57205 MG/MG / Lidocaine Hydr ochloride 0.005 MG/MG / Menthol 0.05 MG/MG / methyl salicylate 0.2 MG/MG Transdermal Patch Yytf-Crdpn-Pthilmtqs 0.5-0.035-5-20 % Ubid-Lbosl-Vkovzzwrw 0.5-0.035-5-20 % 09/27/2019 12:00 :00 AM EDT active Mlod-Qugal-Quaaoc ine 0.5-0.035-5-20 % eCW1 ([facility]) Magnesium 400 MG UNK 09/27/2019 12:00:00 AM EDT active Magnesium 400 MG eCW1 ([facility] [place]) Prednisone 20 MG Oral Tablet PredniSONE 20 MG PredniSONE 20 MG 09/27/2019 12:00:00 AM EDT 2.0 {tablet} active Pr edniSONE 20 MG eCW1 ([facility]) Prednisone 20 MG Oral Tablet PredniSONE 20 MG PredniSONE 20 MG 09/27/2019 12:00:00 AM EDT 2.0 {tablet} active Pr edniSONE 20 MG eCW1 ([facility]) Prednisone 10 MG Oral Tablet PredniSONE 10 MG PredniSONE 10 MG 09/27/2019 12:00:00 AM EDT 1.0 {tablet} active Pr edniSONE 10 MG eCW1 ([facility]) Magnesium 400 MG UNK 09/27/2019 12:00:00 AM EDT active Magnesium 400 MG eCW1 ([facility] [place]) Prednisone 10 MG Oral Tablet PredniSONE 10 MG PredniSONE 10 MG 09/27/2019 12:00:00 AM EDT 1.0 {tablet} active Pr edniSONE 10 MG eCW1 ([facility]) Acetaminophen 325 MG Oral Tablet [Tylenol] Tylenol 325 MG Ty lenol 325 MG 09/27/2019 12:00:00 AM EDT 2.0 {tablet_as_needed} active Tylenol 325 MG eCW1 ([facility] [place]) Magnesium 400 MG UNK 09/27/2019 12:00:00 AM EDT active Magnesium 400 MG eCW1 ([facility] [place]) Capsaicin 0.46757 MG/MG / Lidocaine Hydr ochloride 0.005 MG/MG / Menthol 0.05 MG/MG / methyl salicylate 0.2 MG/MG Transdermal Patch Ksbh-Palfs-Hjgcylfcz 0.5-0.035-5-20 % Hpsx-Bcswc-Npllnqjup 0.5-0.035-5-20 % 09/27/2019 12:00 :00 AM EDT active Hyfn-Wqdru-Lvwhzd ine 0.5-0.035-5-20 % eCW1 ([facility]) Acetaminophen 325 MG Oral Tablet [Tylenol] Tylenol 325 MG Ty lenol 325 MG 09/27/2019 12:00:00 AM EDT 2.0 {tablet_as_needed} active Tylenol 325 MG eCW1 ([facility] [place]) Prednisone 20 MG Oral Tablet PredniSONE 20 MG PredniSONE 20 MG 09/27/2019 12:00:00 AM EDT active 2 tablet eCW1 ([facility]) Magnesium 400 MG UNK 09/27/2019 12:00:00 AM EDT active Magnesium 400 MG eCW1 ([facility] [place]) Prednisone 20 MG Oral Tablet PredniSONE 20 MG PredniSONE 20 MG 09/27/2019 12:00:00 AM EDT 2.0 {tablet} active Pr edniSONE 20 MG eCW1 ([facility]) Acetaminophen 325 MG Oral Tablet [Tylenol] Tylenol 325 MG Ty lenol 325 MG 09/27/2019 12:00:00 AM EDT active 2 tablet as needed eCW1 ([facility]) Acetaminophen 325 MG / Oxycodone Hydroch loride 7.5 MG Oral Tablet Oxycodone- Acetaminophen 7.5-325 MG Oxycodone-Acetaminophen 7.5-325 MG 09/27/2019 12:00:00 AM EDT active 1 tablet as neede d eCW1 ([facility]) Capsaicin 0.37466 MG/MG / Lidocaine Hydr ochloride 0.005 MG/MG / Menthol 0.05 MG/MG / methyl salicylate 0.2 MG/MG Transdermal Patch Otdu-Elvit-Wntwnxqyx 0.5-0.035-5-20 % Rgqp-Jspyq-Asipddjcg 0.5-0.035-5-20 % 09/27/2019 12:00 :00 AM EDT active Nsky-Kgjbn-Iwjwrw ine 0.5-0.035-5-20 % eCW1 ([facility]) Magnesium 400 MG UNK 09/27/2019 12:00:00 AM EDT active Magnesium 400 MG eCW1 ([facility] [place]) Acetaminophen 325 MG / Oxycodone Hydroch loride 7.5 MG Oral Tablet Oxycodone- Acetaminophen 7.5-325 MG Oxycodone-Acetaminophen 7.5-325 MG 09/02/2019 12:00:00 AM EDT active 1 tablet as neede d eCW1 ([facility]) Acetaminophen 325 MG / Oxycodone Hydroch loride 7.5 MG Oral Tablet Oxycodone- Acetaminophen 7.5-325 MG Oxycodone-Acetaminophen 7.5-325 MG 09/02/2019 12:00:00 AM EDT active 1 tablet as neede d eCW1 ([facility]) Phenazopyridine hydrochloride 200 MG Oral Tablet [Pyri dium] Pyridium 200 MG Pyridium 200 MG 08/16/2019 12:00:00 AM EDT 1.0 {tablet_after_meals} suspended Pyridium 200 MG eCW1 ([facility]) Phenazopyridine hydrochloride 200 MG Oral Tablet [Pyri dium] Pyridium 200 MG Pyridium 200 MG 08/16/2019 12:00:00 AM EDT ac tive 1 tablet after meals eCW1 ([facility] [place]) Phenazopyridine hydrochloride 200 MG Oral Tablet [Pyri dium] Pyridium 200 MG Pyridium 200 MG 08/16/2019 12:00:00 AM EDT 1.0 {tablet_after_meals} suspended Pyridium 200 MG eCW1 ([facility]) Phenazopyridine hydrochloride 200 MG Oral Tablet [Pyri dium] Pyridium 200 MG Pyridium 200 MG 08/16/2019 12:00:00 AM EDT 1.0 {tablet_after_meals} suspended Pyridium 200 MG eCW1 ([facility]) Phenazopyridine hydrochloride 200 MG Oral Tablet [Pyri dium] Pyridium 200 MG Pyridium 200 MG 08/16/2019 12:00:00 AM EDT 1.0 {tablet_after_meals} suspended Pyridium 200 MG eCW1 ([facility]) Phenazopyridine hydrochloride 200 MG Oral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 INORGANIC PHOSPHORUS LEVEL Routine 12/14/2019 4:52 AM E DT 12/14/2019 04:52:00 AM [facility] MAGNESIUM MAGNESIUM LEVEL Routine 12/14/2019 4:52 AM EDT 12/14/2019 04:52:00 AM [facility] COMPREHENSIVE METABOLIC PANEL COMPREHENSIVE METABOLIC PANEL Rou luis 12/14/2019 4:52 AM EDT 12/14/2019 04:52:00 AM EDT [facility] GLUCOSE QUANTITATIVE BLOOD XCPT REAGENT STRIP POCT GLUCOSE, GEE MORALES Routine 12/14/2019 4:05 AM EDT 12/14/2019 04:05:00 AM [facility] URNLS DIP STICK/TABLET REAGENT AUTO MICROSCOPY URINAL YSIS WITH REFLEX URINE CULTURE Routine 12/14/2019 12:47 AM EDT 12/14/2019 12:47 :00 AM [facility] CULTURE BCT ISOL&PRSMPTV ID ISOLATE EA URINE URINE CATHETER CUL T Routine 12/14/2019 12:47 AM EDT 12/14/2019 12:47:00 AM [facility] GLUCOSE QUANTITATIVE BLOOD XCPT REAGENT STRIP POCT GLUCOSE, GEE KED Routine 12/14/2019 12:17 AM EDT 12/14/2019 12:17:00 AM [facility] GLUCOSE QUANTITATIVE BLOOD XCPT REAGENT STRIP POCT GLUCOSE, GEE KEElsa Routine 12/13/2019 8:03 PM EDT 12/13/2019 08:03:00 PM [facility] GLUCOSE QUANTITATIVE BLOOD XCPT REAGENT STRIP POCT GLUCOSE, GEE KED Routine 12/13/2019 4:09 PM EDT 12/13/2019 04:09:00 PM [facility] POCT GLUCOSE, DOCKED POCT GLUCOSE, DOCKED Routine 12/13/2019 11:38 AM EDT 12/13/2019 03:38:00 PM [facility] POCT GLUCOSE, DOCKED POCT GLUCOSE, DOCKED Routine 12/13/2019 8:26 AM EDT 12/13/2019 12:26:00 PM [facility] POCT GLUCOSE, DOCKED POCT GLUCOSE, DOCKED Routine 12/13/2019 4:03 AM EDT 12/13/2019 08:03:00 AM [facility] PHOSPHORUS INORGANIC PHOSPHORUS LEVEL Routine 12/13/2019 3:54 AM E DT 12/13/2019 07:54:00 AM [facility] MAGNESIUM MAGNESIUM LEVEL Routine 12/13/2019 3:54 AM EDT 12/13/2019 07:54:00 AM [facility] POCT GLUCOSE, DOCKED POCT GLUCOSE, DOCKED Routine 12/13/2019 12:09 AM EDT 12/13/2019 04:09:00 AM [facility] GLUCOSE QUANTITATIVE BLOOD XCPT REAGENT STRIP POCT GLUCOSE, DOC CARMEN Routine 12/12/2019 8:45 PM EDT 12/13/2019 12:45:00 AM [facility] GLUCOSE QUANTITATIVE BLOOD XCPT REAGENT STRIP POCT GLUCOSE, DOC CARMEN Routine 12/12/2019 5:27 PM EDT 12/12/2019 09:27:00 PM [facility] GLUCOSE QUANTITATIVE BLOOD XCPT REAGENT STRIP POCT GLUCOSE, GEE MORALES Routine 12/12/2019 4:30 PM EDT 12/12/2019 08:30:00 PM [facility] GLUCOSE QUANTITATIVE BLOOD XCPT REAGENT STRIP POCT GLUCOSE, GEE MORALES Routine 12/12/2019 12:36 PM EDT 12/12/2019 04:36:00 PM [facility] GLUCOSE QUANTITATIVE BLOOD XCPT REAGENT STRIP POCT GLUCOSE, DOC CARMEN Routine 12/12/2019 8:30 AM EDT 12/12/2019 12:30:00 PM [facility] PHOSPHORUS INORGANIC PHOSPHORUS LEVEL Routine 12/12/2019 5:11 AM E DT 12/12/2019 09:11:00 AM [facility] MAGNESIUM MAGNESIUM LEVEL Routine 12/12/2019 5:11 AM EDT 12/12/2019 09:11:00 AM [facility] GLUCOSE QUANTITATIVE BLOOD XCPT REAGENT STRIP POCT GLUCOSE, GEE MORALES Routine 12/12/2019 5:08 AM EDT 12/12/2019 09:08:00 AM [facility] GLUCOSE QUANTITATIVE BLOOD XCPT REAGENT STRIP POCT GLUCOSE, GEE MORALES Routine 12/12/2019 1:30 AM EDT 12/12/2019 05:30:00 AM [facility] GLUCOSE QUANTITATIVE BLOOD XCPT REAGENT STRIP POCT GLUCOSE, GEE MORALES Routine 12/11/2019 11:11 PM EDT 12/12/2019 03:11:00 AM [facility] GLUCOSE QUANTITATIVE BLOOD XCPT REAGENT STRIP POCT GLUCOSE, GEE MORALES Routine 12/11/2019 10:21 PM EDT 12/12/2019 02:21:00 AM [facility] GLUCOSE QUANTITATIVE BLOOD XCPT REAGENT STRIP POCT GLUCOSE, GEE MORALES Routine 12/11/2019 9:12 PM EDT 12/12/2019 01:12:00 AM [facility] GLUCOSE QUANTITATIVE BLOOD XCPT REAGENT STRIP POCT GLUCOSE, GEE MORALES Routine 12/11/2019 8:27 PM EDT 12/12/2019 12:27:00 AM [facility] GLUCOSE QUANTITATIVE BLOOD XCPT REAGENT STRIP POCT GLUCOSE, GEE MORALES Routine 12/11/2019 5:00 PM EDT 12/11/2019 09:00:00 PM [facility] GLUCOSE QUANTITATIVE BLOOD XCPT REAGENT STRIP POCT GLUCOSE, GEE MORALES Routine 12/11/2019 12:36 PM EDT 12/11/2019 04:36:00 PM [facility] GLUCOSE QUANTITATIVE BLOOD XCPT REAGENT STRIP POCT GLUCOSE, GEE MORALES Routine 12/11/2019 8:32 AM EDT 12/11/2019 12:32:00 PM [facility] GLUCOSE QUANTITATIVE BLOOD XCPT REAGENT STRIP POCT GLUCOSE, GEE MORALES Routine 12/11/2019 5:37 AM EDT 12/11/2019 09:37:00 AM [facility] PHOSPHORUS INORGANIC PHOSPHORUS LEVEL Routine 12/11/2019 4:05 AM E DT 12/11/2019 08:05:00 AM [facility] MAGNESIUM MAGNESIUM LEVEL Routine 12/11/2019 4:05 AM EDT 12/11/2019 08:05:00 AM [facility] GLUCOSE QUANTITATIVE BLOOD XCPT REAGENT STRIP POCT GLUCOSE, GEE MORALES Routine 12/11/2019 3:27 AM EDT 12/11/2019 07:27:00 AM [facility] GLUCOSE QUANTITATIVE BLOOD XCPT REAGENT STRIP POCT GLUCOSE, GEE MORALES Routine 12/10/2019 10:54 PM EDT 12/11/2019 02:54:00 AM [facility] GLUCOSE QUANTITATIVE BLOOD XCPT REAGENT STRIP POCT GLUCOSE, GEE MORALES Routine 12/10/2019 8:51 PM EDT 12/11/2019 12:51:00 AM [facility] GLUCOSE QUANTITATIVE BLOOD XCPT REAGENT STRIP POCT GLUCOSE, GEE MORALES Routine 12/10/2019 4:09 PM EDT 12/10/2019 08:09:00 PM [facility] GLUCOSE QUANTITATIVE BLOOD XCPT REAGENT STRIP POCT GLUCOSE, GEE MORALES Routine 12/10/2019 12:29 PM EDT 12/10/2019 04:29:00 PM [facility] GLUCOSE QUANTITATIVE BLOOD XCPT REAGENT STRIP POCT GLUCOSE, GEE MORALES Routine 12/10/2019 8:16 AM EDT 12/10/2019 12:16:00 PM [facility] PHOSPHORUS INORGANIC PHOSPHORUS LEVEL Routine 12/10/2019 4:30 AM E DT 12/10/2019 08:30:00 AM [facility] MAGNESIUM MAGNESIUM LEVEL Routine 12/10/2019 4:30 AM EDT 12/10/2019 08:30:00 AM [facility] GLUCOSE QUANTITATIVE BLOOD XCPT REAGENT STRIP POCT GLUCOSE, GEE MORALES Routine 12/10/2019 4:22 AM EDT 12/10/2019 08:22:00 AM [facility] GLUCOSE QUANTITATIVE BLOOD XCPT REAGENT STRIP POCT GLUCOSE, GEE MORALES Routine 12/09/2019 11:34 PM EDT 12/10/2019 03:34:00 AM [facility] GLUCOSE QUANTITATIVE BLOOD XCPT REAGENT STRIP POCT GLUCOSE, GEE MORALES Routine 12/09/2019 7:58 PM EDT 12/09/2019 11:58:00 PM [facility] GLUCOSE QUANTITATIVE BLOOD XCPT REAGENT STRIP POCT GLUCOSE, GEE MORALES Routine 12/09/2019 4:22 PM EDT 12/09/2019 08:22:00 PM [facility] GLUCOSE QUANTITATIVE BLOOD XCPT REAGENT STRIP POCT GLUCOSE, GEE MORALES Routine 12/09/2019 12:24 PM EDT 12/09/2019 04:24:00 PM [facility] GLUCOSE QUANTITATIVE BLOOD XCPT REAGENT STRIP POCT GLUCOSE, GEE MORALES Routine 12/09/2019 8:06 AM EDT 12/09/2019 12:06:00 PM [facility] GLUCOSE QUANTITATIVE BLOOD XCPT REAGENT STRIP POCT GLUCOSE, GEE MORALES Routine 12/09/2019 5:56 AM EDT 12/09/2019 09:56:00 AM [facility] PHOSPHORUS INORGANIC PHOSPHORUS LEVEL Routine 12/09/2019 5:01 AM E DT 12/09/2019 09:01:00 AM [facility] MAGNESIUM MAGNESIUM LEVEL Routine 12/09/2019 5:01 AM EDT 12/09/2019 09:01:00 AM [facility] GLUCOSE QUANTITATIVE BLOOD XCPT REAGENT STRIP POCT GLUCOSE, GEE MORALES Routine 12/09/2019 12:41 AM EDT 12/09/2019 04:41:00 AM [facility] GLUCOSE QUANTITATIVE BLOOD XCPT REAGENT STRIP POCT GLUCOSE, GEE MORALES Routine 12/08/2019 9:02 PM EDT 12/09/2019 01:02:00 AM [facility] GLUCOSE QUANTITATIVE BLOOD XCPT REAGENT STRIP POCT GLUCOSE, GEE MORALES Routine 12/08/2019 5:22 PM EDT 12/08/2019 09:22:00 PM [facility] GLUCOSE QUANTITATIVE BLOOD XCPT REAGENT STRIP POCT GLUCOSE, GEE MORALES Routine 12/08/2019 12:13 PM EDT 12/08/2019 04:13:00 PM [facility] GLUCOSE QUANTITATIVE BLOOD XCPT REAGENT STRIP POCT GLUCOSE, GEE MORALES Routine 12/08/2019 7:45 AM EDT 12/08/2019 11:45:00 AM [facility] PHOSPHORUS INORGANIC PHOSPHORUS LEVEL Routine 12/08/2019 4:24 AM E DT 12/08/2019 08:24:00 AM [facility] MAGNESIUM MAGNESIUM LEVEL Routine 12/08/2019 4:24 AM EDT 12/08/2019 08:24:00 AM [facility] GLUCOSE QUANTITATIVE BLOOD XCPT REAGENT STRIP POCT GLUCOSE, GEE MORALES Routine 12/08/2019 4:09 AM EDT 12/08/2019 08:09:00 AM [facility] GLUCOSE QUANTITATIVE BLOOD XCPT REAGENT STRIP POCT GLUCOSE, GEE MORALES Routine 12/08/2019 12:18 AM EDT 12/08/2019 04:18:00 AM [facility] GLUCOSE QUANTITATIVE BLOOD XCPT REAGENT STRIP POCT GLUCOSE, GEE MORALES Routine 12/07/2019 9:00 PM EDT 12/08/2019 01:00:00 AM [facility] GLUCOSE QUANTITATIVE BLOOD XCPT REAGENT STRIP POCT GLUCOSE, GEE MORALES Routine 12/07/2019 4:22 PM EDT 12/07/2019 08:22:00 PM [facility] UPPER GI ENDOSCOPY W/PLACEMENT, PERCUTANEOUS GASTROSTO MY TUBE UPPER GI ENDOSCOPY W/PLACEMENT, PERCUTANEOUS GASTROSTOMY TUBE 020 2:27 PM EDT dysphagia secondary to spinal cord injury 12/07/2019 0 6:27:00 PM EDT - 12/07/2019 07:03:00 PM [facility] GLUCOSE QUANTITATIVE BLOOD XCPT REAGENT STRIP POCT GLUCOSE, GEE MORALES Routine 12/07/2019 11:56 AM EDT 12/07/2019 03:56:00 PM [facility] GLUCOSE QUANTITATIVE BLOOD XCPT REAGENT STRIP POCT GLUCOSE, GEE MORALES Routine 12/07/2019 7:44 AM EDT 12/07/2019 11:44:00 AM [facility] GLUCOSE QUANTITATIVE BLOOD XCPT REAGENT STRIP POCT GLUCOSE, GEE MORALES Routine 12/07/2019 5:10 AM EDT 12/07/2019 09:10:00 AM [facility] GLUCOSE QUANTITATIVE BLOOD XCPT REAGENT STRIP POCT GLUCOSE, GEE MORALES Routine 12/07/2019 5:08 AM EDT 12/07/2019 09:08:00 AM [facility] PHOSPHORUS INORGANIC PHOSPHORUS LEVEL Routine 12/07/2019 5:07 AM E DT 12/07/2019 09:07:00 AM [facility] MAGNESIUM MAGNESIUM LEVEL Routine 12/07/2019 5:07 AM EDT 12/07/2019 09:07:00 AM [facility] BASIC METABOLIC PANEL CALCIUM TOTAL BASIC METABOLIC PANEL Routi ne 12/07/2019 5:07 AM EDT 12/07/2019 09:07:00 AM EDT [facility] GLUCOSE QUANTITATIVE BLOOD XCPT REAGENT STRIP POCT GLUCOSE, GEE MORALES Routine 12/06/2019 10:10 PM EDT 12/07/2019 02:10:00 AM [facility] GLUCOSE QUANTITATIVE BLOOD XCPT REAGENT STRIP POCT GLUCOSE, GEE MORALES Routine 12/06/2019 3:07 PM EDT 12/06/2019 07:07:00 PM [facility] GLUCOSE QUANTITATIVE BLOOD XCPT REAGENT STRIP POCT GLUCOSE, GEE MORALES Routine 12/06/2019 12:46 PM EDT 12/06/2019 04:46:00 PM [facility] GLUCOSE QUANTITATIVE BLOOD XCPT REAGENT STRIP POCT GLUCOSE, GEE MORALES Routine 12/06/2019 8:04 AM EDT 12/06/2019 12:04:00 PM [facility] PHOSPHORUS INORGANIC PHOSPHORUS LEVEL Routine 12/06/2019 4:32 AM E DT 12/06/2019 08:32:00 AM [facility] MAGNESIUM MAGNESIUM LEVEL Routine 12/06/2019 4:32 AM EDT 12/06/2019 08:32:00 AM [facility] GLUCOSE QUANTITATIVE BLOOD XCPT REAGENT STRIP POCT GLUCOSE, GEE MORALES Routine 12/06/2019 4:21 AM EDT 12/06/2019 08:21:00 AM [facility] GLUCOSE QUANTITATIVE BLOOD XCPT REAGENT STRIP POCT GLUCOSE, GEE MORALES Routine 12/06/2019 12:00 AM EDT 12/06/2019 04:00:00 AM [facility] GLUCOSE QUANTITATIVE BLOOD XCPT REAGENT STRIP POCT GLUCOSE, GEE MORALES Routine 12/05/2019 8:39 PM EDT 12/06/2019 12:39:00 AM [facility] GLUCOSE QUANTITATIVE BLOOD XCPT REAGENT STRIP POCT GLUCOSE, GEE MORALES Routine 12/05/2019 4:04 PM EDT 12/05/2019 08:04:00 PM [facility] GLUCOSE QUANTITATIVE BLOOD XCPT REAGENT STRIP POCT GLUCOSE, GEE MORALES Routine 12/05/2019 11:41 AM EDT 12/05/2019 03:41:00 PM [facility] GLUCOSE QUANTITATIVE BLOOD XCPT REAGENT STRIP POCT GLUCOSE, GEE MORALES Routine 12/05/2019 8:03 AM EDT 12/05/2019 12:03:00 PM [facility] PHOSPHORUS INORGANIC PHOSPHORUS LEVEL Routine 12/05/2019 5:08 AM E DT 12/05/2019 09:08:00 AM [facility] MAGNESIUM MAGNESIUM LEVEL Routine 12/05/2019 5:08 AM EDT 12/05/2019 09:08:00 AM [facility] GLUCOSE QUANTITATIVE BLOOD XCPT REAGENT STRIP POCT GLUCOSE, GEE MORALES Routine 12/05/2019 5:01 AM EDT 12/05/2019 09:01:00 AM [facility] GLUCOSE QUANTITATIVE BLOOD XCPT REAGENT STRIP POCT GLUCOSE, GEE MORALES Routine 12/05/2019 12:52 AM EDT 12/05/2019 04:52:00 AM [facility] GLUCOSE QUANTITATIVE BLOOD XCPT REAGENT STRIP POCT GLUCOSE, GEE MORALES Routine 12/04/2019 8:29 PM EDT 12/05/2019 12:29:00 AM [facility] GLUCOSE QUANTITATIVE BLOOD XCPT REAGENT STRIP POCT GLUCOSE, GEE MORALES Routine 12/04/2019 4:31 PM EDT 12/04/2019 08:31:00 PM [facility] GLUCOSE QUANTITATIVE BLOOD XCPT REAGENT STRIP POCT GLUCOSE, GEE MORALES Routine 12/04/2019 12:27 PM EDT 12/04/2019 04:27:00 PM [facility] GLUCOSE QUANTITATIVE BLOOD XCPT REAGENT STRIP POCT GLUCOSE, GEE MORALES Routine 12/04/2019 8:53 AM EDT 12/04/2019 12:53:00 PM [facility] GLUCOSE QUANTITATIVE BLOOD XCPT REAGENT STRIP POCT GLUCOSE, GEE MORALES Routine 12/04/2019 4:41 AM EDT 12/04/2019 08:41:00 AM [facility] PHOSPHORUS INORGANIC PHOSPHORUS LEVEL Routine 12/04/2019 4:35 AM E DT 12/04/2019 08:35:00 AM [facility] MAGNESIUM MAGNESIUM LEVEL Routine 12/04/2019 4:35 AM EDT 12/04/2019 08:35:00 AM [facility] GLUCOSE QUANTITATIVE BLOOD XCPT REAGENT STRIP POCT GLUCOSE, GEE MORALES Routine 12/04/2019 12:05 AM EDT 12/04/2019 04:05:00 AM [facility] GLUCOSE QUANTITATIVE BLOOD XCPT REAGENT STRIP POCT GLUCOSE, GEE MORAELS Routine 12/03/2019 8:35 PM EDT 12/04/2019 12:35:00 AM [facility] GLUCOSE QUANTITATIVE BLOOD XCPT REAGENT STRIP POCT GLUCOSE, GEE MORALES Routine 12/03/2019 8:07 PM EDT 12/04/2019 12:07:00 AM [facility] GLUCOSE QUANTITATIVE BLOOD XCPT REAGENT STRIP POCT GLUCOSE, GEE MORALES Routine 12/03/2019 4:18 PM EDT 12/03/2019 08:18:00 PM [facility] GLUCOSE QUANTITATIVE BLOOD XCPT REAGENT STRIP POCT GLUCOSE, GEE MORALES Routine 12/03/2019 12:25 PM EDT 12/03/2019 04:25:00 PM [facility] GLUCOSE QUANTITATIVE BLOOD XCPT REAGENT STRIP POCT GLUCOSE, GEE MORALES Routine 12/03/2019 8:07 AM EDT 12/03/2019 12:07:00 PM [facility] GLUCOSE QUANTITATIVE BLOOD XCPT REAGENT STRIP POCT GLUCOSE, GEE MORALES Routine 12/03/2019 4:32 AM EDT 12/03/2019 08:32:00 AM [facility] PHOSPHORUS INORGANIC PHOSPHORUS LEVEL Routine 12/03/2019 4:32 AM E DT 12/03/2019 08:32:00 AM [facility] MAGNESIUM MAGNESIUM LEVEL Routine 12/03/2019 4:32 AM EDT 12/03/2019 08:32:00 AM [facility] GLUCOSE QUANTITATIVE BLOOD XCPT REAGENT STRIP POCT GLUCOSE, GEE MORALES Routine 12/03/2019 2:11 AM EDT 12/03/2019 06:11:00 AM [facility] GLUCOSE QUANTITATIVE BLOOD XCPT REAGENT STRIP POCT GLUCOSE, GEE MORALES Routine 12/03/2019 1:08 AM EDT 12/03/2019 05:08:00 AM [facility] GLUCOSE QUANTITATIVE BLOOD XCPT REAGENT STRIP POCT GLUCOSE, GEE MORALES Routine 12/03/2019 12:08 AM EDT 12/03/2019 04:08:00 AM [facility] GLUCOSE QUANTITATIVE BLOOD XCPT REAGENT STRIP POCT GLUCOSE, GEE MORALES Routine 12/02/2019 8:38 PM EDT 12/03/2019 12:38:00 AM [facility] GLUCOSE QUANTITATIVE BLOOD XCPT REAGENT STRIP POCT GLUCOSE, GEE MORALES Routine 12/02/2019 4:38 PM EDT 12/02/2019 08:38:00 PM [facility] GLUCOSE QUANTITATIVE BLOOD XCPT REAGENT STRIP POCT GLUCOSE, GEE MORALES Routine 12/02/2019 11:54 AM EDT 12/02/2019 03:54:00 PM [facility] GLUCOSE QUANTITATIVE BLOOD XCPT REAGENT STRIP POCT GLUCOSE, GEE MORALES Routine 12/02/2019 8:46 AM EDT 12/02/2019 12:46:00 PM [facility] PHOSPHORUS INORGANIC PHOSPHORUS LEVEL Routine 12/02/2019 4:40 AM E DT 12/02/2019 08:40:00 AM [facility] MAGNESIUM MAGNESIUM LEVEL Routine 12/02/2019 4:40 AM EDT 12/02/2019 08:40:00 AM [facility] GLUCOSE QUANTITATIVE BLOOD XCPT REAGENT STRIP POCT GLUCOSE, GEE MORALES Routine 12/02/2019 4:31 AM EDT 12/02/2019 08:31:00 AM [facility] GLUCOSE QUANTITATIVE BLOOD XCPT REAGENT STRIP POCT GLUCOSE, GEE MORALES Routine 12/02/2019 12:01 AM EDT 12/02/2019 04:01:00 AM [facility] GLUCOSE QUANTITATIVE BLOOD XCPT REAGENT STRIP POCT GLUCOSE, GEE MORALES Routine 12/01/2019 8:23 PM EDT 12/02/2019 12:23:00 AM [facility] GLUCOSE QUANTITATIVE BLOOD XCPT REAGENT STRIP POCT GLUCOSE, GEE MORALES Routine 12/01/2019 4:19 PM EDT 12/01/2019 08:19:00 PM [facility] GLUCOSE QUANTITATIVE BLOOD XCPT REAGENT STRIP POCT GLUCOSE, GEE MORALES Routine 12/01/2019 10:39 AM EDT 12/01/2019 02:39:00 PM [facility] ELECTROMYOGRAPHY WITH NERVE CONDUCTION ELECTROMYOGRAPHY WIT H NERVE CONDUCTION Routine 12/01/2019 8:24 AM EDT 12/01/2019 12:24:29 PM [facility] GLUCOSE QUANTITATIVE BLOOD XCPT REAGENT STRIP POCT GLUCOSEGEE Routine 12/01/2019 3:52 AM EDT 12/01/2019 07:52:00 AM [facility] PHOSPHORUS INORGANIC PHOSPHORUS LEVEL Routine 12/01/2019 3:49 AM E DT 12/01/2019 07:49:00 AM [facility] MAGNESIUM MAGNESIUM LEVEL Routine 12/01/2019 3:49 AM EDT 12/01/2019 07:49:00 AM [facility] BASIC METABOLIC PANEL CALCIUM TOTAL BASIC METABOLIC PANEL Routi ne 12/01/2019 3:49 AM EDT 12/01/2019 07:49:00 AM [facility] GLUCOSE QUANTITATIVE BLOOD XCPT REAGENT STRIP POCT GLUCOSE, GEE MORALES Routine 12/01/2019 12:02 AM EDT 12/01/2019 04:02:00 AM [facility] GLUCOSE QUANTITATIVE BLOOD XCPT REAGENT STRIP POCT GLUCOSEGEE Routine 11/30/2019 7:36 PM EDT 11/30/2019 11:36:00 PM [facility] XR ABDOMEN AP ABD SUPINE ONLY [id number] [place] [id number] Urgent 11/30/2019 6:30 PM EDT 11/30/2019 10:30:00 PM [facility] XR ABDOMEN AP ABD SUPINE ONLY [id number] XR ABDOMEN AP ABD SUPIN E ONLY [id number] Routine 11/30/2019 3:50 PM EDT 11/30/2019 07:50:00 PM [facility] GLUCOSE QUANTITATIVE BLOOD XCPT REAGENT STRIP POCT GLUCOSE, DOC KEElsa Routine 11/30/2019 3:38 PM EDT 11/30/2019 07:38:00 PM [facility] GLUCOSE QUANTITATIVE BLOOD XCPT REAGENT STRIP POCT GLUCOSE, DOC CARMEN Routine 11/30/2019 11:49 AM EDT 11/30/2019 03:49:00 PM [facility] TRACHEOSTOMY, PLANNED (SEP PROC) TRACHEOSTOMY, PLANNED (SEP PRO C) 11/30/2019 9:13 AM EDT Bilateral vocal cord paralysis 11/30/2019 01:13:00 PM EDT - 11/30/2019 03:12:00 PM [facility] GLUCOSE QUANTITATIVE BLOOD XCPT REAGENT STRIP POCT GLUCOSE, DOC CARMEN Routine 11/30/2019 8:09 AM EDT 11/30/2019 12:09:00 PM [facility] CLOTILDE VIDEO CLOTILDE VIDEO Routine 11/30/2019 7:39 AM EDT 11/30/2019 11:39:29 AM [facility]H COVID-19 PCR COVID-19 PCR Routine 11/30/2019 7:33 AM EDT 11/30/2019 11:33:00 AM [facility] RESPIRATORY PANEL RESPIRATORY PANEL Routine 11/30/2019 7:33 AM EDT 11/30/2019 11:33:00 AM [facility] PHOSPHORUS INORGANIC PHOSPHORUS LEVEL Routine 11/30/2019 4:54 AM E DT 11/30/2019 08:54:00 AM [facility] MAGNESIUM MAGNESIUM LEVEL Routine 11/30/2019 4:54 AM EDT 11/30/2019 08:54:00 AM [facility] GLUCOSE QUANTITATIVE BLOOD XCPT REAGENT STRIP POCT GLUCOSE, DOC CARMEN Routine 11/30/2019 4:42 AM EDT 11/30/2019 08:42:00 AM [facility] GLUCOSE QUANTITATIVE BLOOD XCPT REAGENT STRIP POCT GLUCOSEGEE Routine 11/30/2019 12:40 AM EDT 11/30/2019 04:40:00 AM [facility] GLUCOSE QUANTITATIVE BLOOD XCPT REAGENT STRIP POCT GLUCOSEGEE Routine 11/29/2019 7:45 PM EDT 11/29/2019 11:45:00 PM [facility] GLUCOSE QUANTITATIVE BLOOD XCPT REAGENT STRIP POCT GLUCOSEGEE Routine 11/29/2019 4:09 PM EDT 11/29/2019 08:09:00 PM [facility] GLUCOSE QUANTITATIVE BLOOD XCPT REAGENT STRIP POCT GLUCOSE, GEE MORALES Routine 11/29/2019 11:43 AM EDT 11/29/2019 03:43:00 PM [facility] RADEX SPINE THORACIC 2 VIEWS XR THORACIC SPINE AP AND LATERAL U rgent 11/29/2019 11:15 AM EDT 11/29/2019 03:15:32 PM EDT [facility] GLUCOSE QUANTITATIVE BLOOD XCPT REAGENT STRIP POCT GLUCOSEGEE Routine 11/29/2019 8:09 AM EDT 11/29/2019 12:09:00 PM [facility] MRI SPINAL CANAL CERVICAL W/O CONTRAST MATRL MR CERVI BEVERLY SPINE WITHOUT CONTRAST [id number] Urgent 11/29/2019 6:33 AM EDT 11/29/2019 10:33 :06 AM [facility] MRI BRAIN BRAIN STEM W/O CONTRAST MATERIAL MR BRAIN WITHOUT CONTRAST [id number] Routine 11/29/2019 6:33 AM EDT 11/29/2019 10:33:06 AM [facility] MRI SPINAL CANAL THORACIC W/O CONTRAST MATRL MR THORA CIC SPINE WITHOUT CONTRAST [id number] Urgent 11/29/2019 6:32 AM EDT 11/29/2019 10:32 :48 AM [facility] GLUCOSE QUANTITATIVE BLOOD XCPT REAGENT STRIP POCT GLUCOSEGEE Routine 11/29/2019 4:57 AM EDT 11/29/2019 08:57:00 AM [facility] BLOOD COUNT COMPLETE AUTOMATED CBC Routine 11/29/2019 3:29 A M EDT 11/29/2019 07:29:00 AM [facility] PHOSPHORUS INORGANIC PHOSPHORUS LEVEL Routine 11/29/2019 3:29 AM E DT 11/29/2019 07:29:00 AM [facility] MAGNESIUM MAGNESIUM LEVEL Routine 11/29/2019 3:29 AM EDT 11/29/2019 07:29:00 AM [facility] GLUCOSE QUANTITATIVE BLOOD XCPT REAGENT STRIP POCT GLUCOSE, GEE MORALES Routine 11/29/2019 12:54 AM EDT 11/29/2019 04:54:00 AM [facility] GLUCOSE QUANTITATIVE BLOOD XCPT REAGENT STRIP POCT GLUCOSE, GEE MORALES Routine 11/28/2019 9:45 PM EDT 11/29/2019 01:45:00 AM [facility] GLUCOSE QUANTITATIVE BLOOD XCPT REAGENT STRIP POCT GLUCOSE, GEE MORALES Routine 11/28/2019 8:17 PM EDT 11/29/2019 12:17:00 AM [facility] GLUCOSE QUANTITATIVE BLOOD XCPT REAGENT STRIP POCT GLUCOSE, GEE MORALES Routine 11/28/2019 4:27 PM EDT 11/28/2019 08:27:00 PM [facility] GLUCOSE QUANTITATIVE BLOOD XCPT REAGENT STRIP POCT GLUCOSE, GEE MORALES Routine 11/28/2019 11:40 AM EDT 11/28/2019 03:40:00 PM [facility] GLUCOSE QUANTITATIVE BLOOD XCPT REAGENT STRIP POCT GLUCOSE, GEE MORALES Routine 11/28/2019 7:59 AM EDT 11/28/2019 11:59:00 AM [facility] PHOSPHORUS INORGANIC PHOSPHORUS LEVEL Routine 11/28/2019 4:40 AM E DT 11/28/2019 08:40:00 AM [facility] MAGNESIUM MAGNESIUM LEVEL Routine 11/28/2019 4:40 AM EDT 11/28/2019 08:40:00 AM [facility] GLUCOSE QUANTITATIVE BLOOD XCPT REAGENT STRIP POCT GLUCOSE, GEE MORALES Routine 11/28/2019 4:13 AM EDT 11/28/2019 08:13:00 AM [facility] GLUCOSE QUANTITATIVE BLOOD XCPT REAGENT STRIP POCT GLUCOSE, GEE MORALES Routine 11/28/2019 12:14 AM EDT 11/28/2019 04:14:00 AM [facility] GLUCOSE QUANTITATIVE BLOOD XCPT REAGENT STRIP POCT GLUCOSE, GEE MORALES Routine 11/27/2019 8:16 PM EDT 11/28/2019 12:16:00 AM [facility] GLUCOSE QUANTITATIVE BLOOD XCPT REAGENT STRIP POCT GLUCOSE, GEE MORALES Routine 11/27/2019 4:11 PM EDT 11/27/2019 08:11:00 PM [facility] GLUCOSE QUANTITATIVE BLOOD XCPT REAGENT STRIP POCT GLUCOSE, GEE MORALES Routine 11/27/2019 1:04 PM EDT 11/27/2019 05:04:00 PM [facility] GLUCOSE QUANTITATIVE BLOOD XCPT REAGENT STRIP POCT GLUCOSE, GEE MORALES Routine 11/27/2019 8:09 AM EDT 11/27/2019 12:09:00 PM [facility] PHOSPHORUS INORGANIC PHOSPHORUS LEVEL Routine 11/27/2019 4:36 AM E DT 11/27/2019 08:36:00 AM [facility] MAGNESIUM MAGNESIUM LEVEL Routine 11/27/2019 4:36 AM EDT 11/27/2019 08:36:00 AM [facility] CALCIUM IONIZED CALCIUM, IONIZED Routine 11/27/2019 4:36 AM EDT 11/27/2019 08:36:00 AM [facility] GLUCOSE QUANTITATIVE BLOOD XCPT REAGENT STRIP POCT GLUCOSE, GEE MORALES Routine 11/27/2019 4:07 AM EDT 11/27/2019 08:07:00 AM [facility] GLUCOSE QUANTITATIVE BLOOD XCPT REAGENT STRIP POCT GLUCOSE, GEE MORALES Routine 11/27/2019 12:00 AM EDT 11/27/2019 04:00:00 AM [facility] GLUCOSE QUANTITATIVE BLOOD XCPT REAGENT STRIP POCT GLUCOSE, GEE MORALES Routine 11/26/2019 8:02 PM EDT 11/27/2019 12:02:00 AM [facility] EKG 12-LEAD - CMAXX REPORT EKG 12-LEAD - CMAXX REPORT 11/26/2019 6:57 PM EDT 11/26/2019 10:57:13 PM EDT [facility] EKG 12-LEAD - CMAXX REPORT EKG 12-LEAD - CMAXX REPORT 11/26/2019 6:57 PM EDT 11/26/2019 10:57:13 PM T [facility] EKG 12-LEAD EKG 12-LEAD STAT 11/26/2019 6:57 PM EDT 11/26/2019 10:57:13 PM [facility] BLOOD COUNT COMPLETE AUTOMATED CBC STAT 11/26/2019 6:33 P M EDT 11/26/2019 10:33:00 PM [facility] PHOSPHORUS INORGANIC PHOSPHORUS LEVEL STAT 11/26/2019 6:33 PM E DT 11/26/2019 10:33:00 PM [facility] MAGNESIUM MAGNESIUM LEVEL STAT 11/26/2019 6:33 PM EDT 11/26/2019 10:33:00 PM [facility] COMPREHENSIVE METABOLIC PANEL COMPREHENSIVE METABOLIC PANEL STA T 11/26/2019 6:33 PM EDT 11/26/2019 10:33:00 PM EDT [facility] GLUCOSE QUANTITATIVE BLOOD XCPT REAGENT STRIP POCT GLUCOSE, GEE MORALES Routine 11/26/2019 4:13 PM EDT 11/26/2019 08:13:00 PM [facility] GLUCOSE QUANTITATIVE BLOOD XCPT REAGENT STRIP POCT GLUCOSE, GEE MORALES Routine 11/26/2019 12:35 PM EDT 11/26/2019 04:35:00 PM [facility] GLUCOSE QUANTITATIVE BLOOD XCPT REAGENT STRIP POCT GLUCOSE, GEE MORALES Routine 11/26/2019 8:13 AM EDT 11/26/2019 12:13:00 PM [facility] PHOSPHORUS INORGANIC PHOSPHORUS LEVEL Routine 11/26/2019 4:16 AM E DT 11/26/2019 08:16:00 AM [facility] MAGNESIUM MAGNESIUM LEVEL Routine 11/26/2019 4:16 AM EDT 11/26/2019 08:16:00 AM [facility] CALCIUM IONIZED CALCIUM, IONIZED Routine 11/26/2019 4:16 AM EDT 11/26/2019 08:16:00 AM [facility] GLUCOSE QUANTITATIVE BLOOD XCPT REAGENT STRIP POCT GLUCOSE, GEE MORALES Routine 11/26/2019 4:08 AM EDT 11/26/2019 08:08:00 AM [facility] GLUCOSE QUANTITATIVE BLOOD XCPT REAGENT STRIP POCT GLUCOSE, GEE MORALES Routine 11/26/2019 12:30 AM EDT 11/26/2019 04:30:00 AM [facility] GLUCOSE QUANTITATIVE BLOOD XCPT REAGENT STRIP POCT GLUCOSE, GEE MORALES Routine 11/25/2019 9:06 PM EDT 11/26/2019 01:06:00 AM [facility] GLUCOSE QUANTITATIVE BLOOD XCPT REAGENT STRIP POCT GLUCOSE, GEE MORALES Routine 11/25/2019 7:19 PM EDT 11/25/2019 11:19:00 PM [facility] GLUCOSE QUANTITATIVE BLOOD XCPT REAGENT STRIP POCT GLUCOSE, DOC KED Routine 11/25/2019 3:45 PM EDT 11/25/2019 07:45:00 PM [facility] GLUCOSE QUANTITATIVE BLOOD XCPT REAGENT STRIP POCT GLUCOSE, GEE MORALES Routine 11/25/2019 11:38 AM EDT 11/25/2019 03:38:00 PM [facility] HEPARIN ASSAY ANTI-XA LOW MOLECULAR WEIGHT HEPARIN LEVEL(ENOXA JOSE) Routine 11/25/2019 8:45 AM EDT 11/25/2019 12:45:00 PM [facility] GLUCOSE QUANTITATIVE BLOOD XCPT REAGENT STRIP POCT GLUCOSE, GEE MORALES Routine 11/25/2019 7:51 AM EDT 11/25/2019 11:51:00 AM [facility] GLUCOSE QUANTITATIVE BLOOD XCPT REAGENT STRIP POCT GLUCOSE, GEE MORALES Routine 11/25/2019 4:09 AM EDT 11/25/2019 08:09:00 AM [facility] POTASSIUM SERUM PLASMA/WHOLE BLOOD POTASSIUM Routine 11/25/2019 4:09 AM EDT 11/25/2019 08:09:00 AM [facility] PHOSPHORUS INORGANIC PHOSPHORUS LEVEL Routine 11/25/2019 4:09 AM E DT 11/25/2019 08:09:00 AM [facility] MAGNESIUM MAGNESIUM LEVEL Routine 11/25/2019 4:09 AM EDT 11/25/2019 08:09:00 AM [facility] CALCIUM IONIZED CALCIUM, IONIZED Routine 11/25/2019 4:09 AM EDT 11/25/2019 08:09:00 AM [facility] GLUCOSE QUANTITATIVE BLOOD XCPT REAGENT STRIP POCT GLUCOSE, GEE MORALES Routine 11/25/2019 12:11 AM EDT 11/25/2019 04:11:00 AM [facility] GLUCOSE QUANTITATIVE BLOOD XCPT REAGENT STRIP POCT GLUCOSE, GEE MORALES Routine 11/24/2019 8:25 PM EDT 11/25/2019 12:25:00 AM [facility] GLUCOSE QUANTITATIVE BLOOD XCPT REAGENT STRIP POCT GLUCOSE, GEE MORALES Routine 11/24/2019 3:56 PM EDT 11/24/2019 07:56:00 PM [facility] GLUCOSE QUANTITATIVE BLOOD XCPT REAGENT STRIP POCT GLUCOSE, GEE MORALES Routine 11/24/2019 11:58 AM EDT 11/24/2019 03:58:00 PM [facility] GLUCOSE QUANTITATIVE BLOOD XCPT REAGENT STRIP POCT GLUCOSE, GEE KED Routine 11/24/2019 8:09 AM EDT 11/24/2019 12:09:00 PM [facility] GLUCOSE QUANTITATIVE BLOOD XCPT REAGENT STRIP POCT GLUCOSE, DOC KED Routine 11/24/2019 4:30 AM EDT 11/24/2019 08:30:00 AM [facility] BLOOD COUNT COMPLETE AUTO&AUTO DIFRNTL WBC COUNT CBC AND DIFFER ENTIAL Routine 11/24/2019 4:24 AM EDT 11/24/2019 08:24:00 AM [facility] PHOSPHORUS INORGANIC PHOSPHORUS LEVEL Routine 11/24/2019 4:24 AM E DT 11/24/2019 08:24:00 AM [facility] MAGNESIUM MAGNESIUM LEVEL Routine 11/24/2019 4:24 AM EDT 11/24/2019 08:24:00 AM [facility] CALCIUM IONIZED CALCIUM, IONIZED Routine 11/24/2019 4:24 AM EDT 11/24/2019 08:24:00 AM [facility] COMPREHENSIVE METABOLIC PANEL COMPREHENSIVE METABOLIC PANEL Rou luis 11/24/2019 4:24 AM EDT [facility] XCPT REAGENT STRIP POCT GLUCOSE, GEE PYLED Routine 11/23/2019 11:39 PM EDT 11/24/2019 03:39:00 AM [facility] GLUCOSE QUANTITATIVE BLOOD XCPT REAGENT STRIP POCT GLUCOSE, GEE PYLED Routine 11/23/2019 7:45 PM EDT 11/23/2019 11:45:00 PM [facility] GLUCOSE QUANTITATIVE BLOOD XCPT REAGENT STRIP POCT GLUCOSE, GEE PYLED Routine 11/23/2019 3:36 PM EDT 11/23/2019 07:36:00 PM [facility] GLUCOSE QUANTITATIVE BLOOD XCPT REAGENT STRIP POCT GLUCOSE, GEE PYLED Routine 11/23/2019 12:01 PM EDT 11/23/2019 04:01:00 PM [facility] GLUCOSE QUANTITATIVE BLOOD XCPT REAGENT STRIP POCT GLUCOSE, GEE PYLED Routine 11/23/2019 7:56 AM EDT 11/23/2019 11:56:00 AM [facility] BLOOD COUNT COMPLETE AUTO&AUTO DIFRNTL WBC COUNT CBC AND DIFFER ENTIAL Routine 11/23/2019 4:16 AM EDT 11/23/2019 08:16:00 AM [facility] PHOSPHORUS INORGANIC PHOSPHORUS LEVEL Routine 11/23/2019 4:16 AM E DT 11/23/2019 08:16:00 AM [facility] MAGNESIUM MAGNESIUM LEVEL Routine 11/23/2019 4:16 AM EDT 11/23/2019 08:16:00 AM [facility] CALCIUM IONIZED CALCIUM, IONIZED Routine 11/23/2019 4:16 AM EDT 11/23/2019 08:16:00 AM [facility] BASIC METABOLIC PANEL CALCIUM TOTAL BASIC METABOLIC PANEL Routi ne 11/23/2019 4:16 AM EDT 11/23/2019 08:16:00 AM EDT [facility] GLUCOSE QUANTITATIVE BLOOD XCPT REAGENT STRIP POCT GLUCOSE, DOC KED Routine 11/23/2019 3:59 AM EDT 11/23/2019 07:59:00 AM [facility] GLUCOSE QUANTITATIVE BLOOD XCPT REAGENT STRIP POCT GLUCOSE, DOC KED Routine 11/23/2019 12:36 AM EDT 11/23/2019 04:36:00 AM [facility] GLUCOSE QUANTITATIVE BLOOD XCPT REAGENT STRIP POCT GLUCOSE, DOC KED Routine 11/22/2019 8:34 PM EDT 11/23/2019 12:34:00 AM [facility] GLUCOSE QUANTITATIVE BLOOD XCPT REAGENT STRIP POCT GLUCOSE, DOC KED Routine 11/22/2019 4:00 PM EDT 11/22/2019 08:00:00 PM [facility] GLUCOSE QUANTITATIVE BLOOD XCPT REAGENT STRIP POCT GLUCOSE, DOC KED Routine 11/22/2019 11:50 AM EDT 11/22/2019 03:50:00 PM [facility] EKG 12-LEAD - CMAXX REPORT EKG 12-LEAD - CMAXX REPORT 11/22/2019 10:59 AM EDT 11/22/2019 02:59:40 PM EDT [facility] EKG 12-LEAD - CMAXX REPORT EKG 12-LEAD - CMAXX REPORT 11/22/2019 10:59 AM EDT 11/22/2019 02:59:40 PM [facility] EKG 12-LEAD EKG 12-LEAD Routine 11/22/2019 10:59 AM EDT 11/22/2019 02:59:40 PM [facility] TROPONIN QUANTITATIVE TROPONIN T Routine 11/22/2019 10:52 AM EDT 11/22/2019 02:52:00 PM [facility] GLUCOSE QUANTITATIVE BLOOD XCPT REAGENT STRIP POCT GLUCOSE, GEE MORALES Routine 11/22/2019 8:00 AM EDT 11/22/2019 12:00:00 PM [facility] BLOOD COUNT COMPLETE AUTO&AUTO DIFRNTL WBC COUNT CBC AND DIFFER ENTIAL Routine 11/22/2019 4:56 AM EDT 11/22/2019 08:56:00 AM [facility] PHOSPHORUS INORGANIC PHOSPHORUS LEVEL Routine 11/22/2019 4:56 AM E DT 11/22/2019 08:56:00 AM [facility] MAGNESIUM MAGNESIUM LEVEL Routine 11/22/2019 4:56 AM EDT 11/22/2019 08:56:00 AM [facility] CALCIUM IONIZED CALCIUM, IONIZED Routine 11/22/2019 4:56 AM EDT 11/22/2019 08:56:00 AM [facility] BASIC METABOLIC PANEL CALCIUM TOTAL BASIC METABOLIC PANEL Routi ne 11/22/2019 4:56 AM EDT 11/22/2019 08:56:00 AM EDT [facility] GLUCOSE QUANTITATIVE BLOOD XCPT REAGENT STRIP POCT GLUCOSE, GEE MORALES Routine 11/22/2019 4:49 AM EDT 11/22/2019 08:49:00 AM [facility] GLUCOSE QUANTITATIVE BLOOD XCPT REAGENT STRIP POCT GLUCOSE, GEE MORALES Routine 11/22/2019 12:16 AM EDT 11/22/2019 04:16:00 AM [facility] GLUCOSE QUANTITATIVE BLOOD XCPT REAGENT STRIP POCT GLUCOSE, GEE KED Routine 11/21/2019 8:28 PM EDT 11/22/2019 12:28:00 AM [facility] GLUCOSE QUANTITATIVE BLOOD XCPT REAGENT STRIP POCT GLUCOSE, GEE KED Routine 11/21/2019 4:10 PM EDT 11/21/2019 08:10:00 PM [facility] XR CHEST FRONTAL ONLY [id number] XR CHEST FRONTAL ONLY [id number] STAT 11/21/2019 12:16 PM EDT [facility] XCPT REAGENT STRIP POCT GLUCOSE, GEE PYLED Routine 11/21/2019 11:47 AM EDT 11/21/2019 03:47:00 PM [facility] GLUCOSE QUANTITATIVE BLOOD XCPT REAGENT STRIP POCT GLUCOSE, DOC KED Routine 11/21/2019 8:29 AM EDT 11/21/2019 12:29:00 PM [facility] BLOOD COUNT COMPLETE AUTO&AUTO DIFRNTL WBC COUNT CBC AND DIFFER ENTIAL Routine 11/21/2019 4:50 AM EDT 11/21/2019 08:50:00 AM [facility] PHOSPHORUS INORGANIC PHOSPHORUS LEVEL Routine 11/21/2019 4:50 AM E DT 11/21/2019 08:50:00 AM [facility] MAGNESIUM MAGNESIUM LEVEL Routine 11/21/2019 4:50 AM EDT 11/21/2019 08:50:00 AM [facility] CALCIUM IONIZED CALCIUM, IONIZED Routine 11/21/2019 4:50 AM EDT 11/21/2019 08:50:00 AM [facility] BASIC METABOLIC PANEL CALCIUM TOTAL BASIC METABOLIC PANEL Routi ne 11/21/2019 4:50 AM EDT 11/21/2019 08:50:00 AM [facility] GLUCOSE QUANTITATIVE BLOOD XCPT REAGENT STRIP POCT GLUCOSE, DOC KED Routine 11/21/2019 4:03 AM EDT 11/21/2019 08:03:00 AM [facility] GLUCOSE QUANTITATIVE BLOOD XCPT REAGENT STRIP POCT GLUCOSE, DOC KED Routine 11/21/2019 12:11 AM EDT 11/21/2019 04:11:00 AM [facility] GLUCOSE QUANTITATIVE BLOOD XCPT REAGENT STRIP POCT GLUCOSE, DOC KED Routine 11/20/2019 8:06 PM EDT 11/21/2019 12:06:00 AM [facility] GLUCOSE QUANTITATIVE BLOOD XCPT REAGENT STRIP POCT GLUCOSE, DOC KED Routine 11/20/2019 4:44 PM EDT 11/20/2019 08:44:00 PM [facility] GLUCOSE QUANTITATIVE BLOOD XCPT REAGENT STRIP POCT GLUCOSE, DOC KED Routine 11/20/2019 11:54 AM EDT 11/20/2019 03:54:00 PM [facility] BLOOD COUNT COMPLETE AUTO&AUTO DIFRNTL WBC COUNT CBC AND DIFFER ENTIAL STAT 11/20/2019 10:18 AM EDT 11/20/2019 02:18:00 PM [facility] GLUCOSE QUANTITATIVE BLOOD XCPT REAGENT STRIP POCT GLUCOSE, DOC KED Routine 11/20/2019 8:04 AM EDT 11/20/2019 12:04:00 PM [facility] PHOSPHORUS INORGANIC PHOSPHORUS LEVEL Routine 11/20/2019 4:08 AM E DT 11/20/2019 08:08:00 AM [facility] MAGNESIUM MAGNESIUM LEVEL Routine 11/20/2019 4:08 AM EDT 11/20/2019 08:08:00 AM [facility] CALCIUM IONIZED CALCIUM, IONIZED Routine 11/20/2019 4:08 AM EDT 11/20/2019 08:08:00 AM [facility] BASIC METABOLIC PANEL CALCIUM TOTAL BASIC METABOLIC PANEL Routi ne 11/20/2019 4:08 AM EDT 11/20/2019 08:08:00 AM EDT [facility] GLUCOSE QUANTITATIVE BLOOD XCPT REAGENT STRIP POCT GLUCOSE, DOC KED Routine 11/20/2019 4:02 AM EDT 11/20/2019 08:02:00 AM [facility] GLUCOSE QUANTITATIVE BLOOD XCPT REAGENT STRIP POCT GLUCOSE, DOC KED Routine 11/19/2019 11:34 PM EDT 11/20/2019 03:34:00 AM [facility] GLUCOSE QUANTITATIVE BLOOD XCPT REAGENT STRIP POCT GLUCOSE, DOC KED Routine 11/19/2019 9:52 PM EDT 11/20/2019 01:52:00 AM [facility] GLUCOSE QUANTITATIVE BLOOD XCPT REAGENT STRIP POCT GLUCOSE, GEE KED Routine 11/19/2019 7:49 PM EDT 11/19/2019 11:49:00 PM [facility] GLUCOSE QUANTITATIVE BLOOD XCPT REAGENT STRIP POCT GLUCOSE, DOC KED Routine 11/19/2019 3:52 PM EDT 11/19/2019 07:52:00 PM [facility] GLUCOSE QUANTITATIVE BLOOD XCPT REAGENT STRIP POCT GLUCOSE, DOC KED Routine 11/19/2019 12:02 PM EDT 11/19/2019 04:02:00 PM [facility] GLUCOSE QUANTITATIVE BLOOD XCPT REAGENT STRIP POCT GLUCOSE, DOC KED Routine 11/19/2019 8:10 AM EDT 11/19/2019 12:10:00 PM [facility] BLOOD COUNT COMPLETE AUTO&AUTO DIFRNTL WBC COUNT CBC AND DIFFER ENTIAL Routine 11/19/2019 4:38 AM EDT 11/19/2019 08:38:00 AM [facility] PHOSPHORUS INORGANIC PHOSPHORUS LEVEL Routine 11/19/2019 4:38 AM E DT 11/19/2019 08:38:00 AM [facility] MAGNESIUM MAGNESIUM LEVEL Routine 11/19/2019 4:38 AM EDT 11/19/2019 08:38:00 AM [facility] CALCIUM IONIZED CALCIUM, IONIZED Routine 11/19/2019 4:38 AM EDT 11/19/2019 08:38:00 AM [facility] GLUCOSE QUANTITATIVE BLOOD XCPT REAGENT STRIP POCT GLUCOSE, DOC LASHANDAD Routine 11/19/2019 3:57 AM EDT 11/19/2019 07:57:00 AM [facility] GLUCOSE QUANTITATIVE BLOOD XCPT REAGENT STRIP POCT GLUCOSE, DOC CARMEN Routine 11/19/2019 12:14 AM EDT 11/19/2019 04:14:00 AM [facility] GLUCOSE QUANTITATIVE BLOOD XCPT REAGENT STRIP POCT GLUCOSE, GEE MORALES Routine 11/18/2019 10:16 PM EDT 11/19/2019 02:16:00 AM [facility] GLUCOSE QUANTITATIVE BLOOD XCPT REAGENT STRIP POCT GLUCOSE, DOC CARMEN Routine 11/18/2019 8:12 PM EDT 11/19/2019 12:12:00 AM [facility] GLUCOSE QUANTITATIVE BLOOD XCPT REAGENT STRIP POCT GLUCOSE, GEE MORALES Routine 11/18/2019 4:03 PM EDT 11/18/2019 08:03:00 PM [facility] GLUCOSE QUANTITATIVE BLOOD XCPT REAGENT STRIP POCT GLUCOSE, GEE MORALES Routine 11/18/2019 12:12 PM EDT 11/18/2019 04:12:00 PM [facility] EKG 12-LEAD - CMAXX REPORT EKG 12-LEAD - CMAXX REPORT 11/18/2019 10:04 AM EDT 11/18/2019 02:04:53 PM EDT [facility] EKG 12-LEAD - CMAXX REPORT EKG 12-LEAD - CMAXX REPORT 11/18/2019 10:04 AM EDT 11/18/2019 02:04:53 PM EDT [facility] EKG 12-LEAD EKG 12-LEAD STAT 11/18/2019 10:04 AM EDT 11/18/2019 02:04:53 PM [facility] GLUCOSE QUANTITATIVE BLOOD XCPT REAGENT STRIP POCT GLUCOSE, DOC LASHANDAD Routine 11/18/2019 8:42 AM EDT 11/18/2019 12:42:00 PM [facility] GLUCOSE QUANTITATIVE BLOOD XCPT REAGENT STRIP POCT GLUCOSE, DOC KED Routine 11/18/2019 4:08 AM EDT 11/18/2019 08:08:00 AM [facility] BLOOD COUNT COMPLETE AUTO&AUTO DIFRNTL WBC COUNT CBC AND DIFFER ENTIAL Routine 11/18/2019 2:35 AM EDT 11/18/2019 06:35:00 AM [facility] PHOSPHORUS INORGANIC PHOSPHORUS LEVEL Routine 11/18/2019 2:35 AM E DT 11/18/2019 06:35:00 AM [facility] MAGNESIUM MAGNESIUM LEVEL Routine 11/18/2019 2:35 AM EDT 11/18/2019 06:35:00 AM [facility] CALCIUM IONIZED CALCIUM, IONIZED Routine 11/18/2019 2:35 AM EDT 11/18/2019 06:35:00 AM [facility] BASIC METABOLIC PANEL CALCIUM TOTAL BASIC METABOLIC PANEL Routi ne 11/18/2019 2:35 AM EDT 11/18/2019 06:35:00 AM EDT [facility] GLUCOSE QUANTITATIVE BLOOD XCPT REAGENT STRIP POCT GLUCOSE, DOC KED Routine 11/17/2019 11:45 PM EDT 11/18/2019 03:45:00 AM [facility] GLUCOSE QUANTITATIVE BLOOD XCPT REAGENT STRIP POCT GLUCOSE, DOC KED Routine 11/17/2019 8:42 PM EDT 11/18/2019 12:42:00 AM [facility] GLUCOSE QUANTITATIVE BLOOD XCPT REAGENT STRIP POCT GLUCOSE, DOC KED Routine 11/17/2019 3:59 PM EDT 11/17/2019 07:59:00 PM [facility] GLUCOSE QUANTITATIVE BLOOD XCPT REAGENT STRIP POCT GLUCOSE, DOC KED Routine 11/17/2019 11:57 AM EDT 11/17/2019 03:57:00 PM [facility] GLUCOSE QUANTITATIVE BLOOD XCPT REAGENT STRIP POCT GLUCOSE, DOC KED Routine 11/17/2019 8:01 AM EDT 11/17/2019 12:01:00 PM [facility] XR ABDOMEN AP ABD SUPINE ONLY [id number] [place] [id number] Urgent 11/17/2019 6:51 AM EDT 11/17/2019 10:51:00 AM [facility] GLUCOSE QUANTITATIVE BLOOD XCPT REAGENT STRIP POCT GLUCOSE, DOC KEElsa Routine 11/17/2019 3:52 AM EDT 11/17/2019 07:52:00 AM [facility] BLOOD COUNT COMPLETE AUTO&AUTO DIFRNTL WBC COUNT CBC AND DIFFER ENTIAL Routine 11/17/2019 2:05 AM EDT 11/17/2019 06:05:00 AM [facility] PHOSPHORUS INORGANIC PHOSPHORUS LEVEL Routine 11/17/2019 2:05 AM E DT 11/17/2019 06:05:00 AM [facility] MAGNESIUM MAGNESIUM LEVEL Routine 11/17/2019 2:05 AM EDT 11/17/2019 06:05:00 AM [facility] CALCIUM IONIZED CALCIUM, IONIZED Routine 11/17/2019 2:05 AM EDT 11/17/2019 06:05:00 AM [facility] BASIC METABOLIC PANEL CALCIUM TOTAL BASIC METABOLIC PANEL Routi ne 11/17/2019 2:05 AM EDT 11/17/2019 06:05:00 AM EDT [facility] GLUCOSE QUANTITATIVE BLOOD XCPT REAGENT STRIP POCT GLUCOSE, DOC CARMEN Routine 11/16/2019 11:37 PM EDT 11/17/2019 03:37:00 AM [facility] GLUCOSE QUANTITATIVE BLOOD XCPT REAGENT STRIP POCT GLUCOSE, DOC KEElsa Routine 11/16/2019 7:49 PM EDT 11/16/2019 11:49:00 PM [facility] XR ABDOMEN AP ABD SUPINE ONLY [id number] XR ABDOMEN AP ABD SUPIN E ONLY [id number] Routine 11/16/2019 6:11 PM EDT 11/16/2019 10:11:00 PM [facility] GLUCOSE QUANTITATIVE BLOOD XCPT REAGENT STRIP POCT GLUCOSE, DOC KED Routine 11/16/2019 4:19 PM EDT 11/16/2019 08:19:00 PM [facility] XR ABDOMEN AP ABD SUPINE ONLY [id number] [place] [id number] STAT 11/16/2019 2:30 PM EDT 11/16/2019 06:30:08 PM [facility] GLUCOSE QUANTITATIVE BLOOD XCPT REAGENT STRIP POCT GLUCOSE, DOC KED Routine 11/16/2019 11:58 AM EDT 11/16/2019 03:58:00 PM [facility] BLOOD COUNT COMPLETE AUTOMATED CBC Routine 11/16/2019 10:04 A M EDT 11/16/2019 02:04:00 PM [facility] PHOSPHORUS INORGANIC PHOSPHORUS LEVEL Routine 11/16/2019 10:04 AM E DT 11/16/2019 02:04:00 PM [facility] MAGNESIUM MAGNESIUM LEVEL Routine 11/16/2019 10:04 AM EDT 11/16/2019 02:04:00 PM [facility] HEMOGLOBIN GLYCOSYLATED A1C HEMOGLOBIN A1C Routine 11/16/2019 10:04 AM EDT 11/16/2019 02:04:00 PM [facility] CALCIUM IONIZED CALCIUM, IONIZED Routine 11/16/2019 10:04 AM EDT 11/16/2019 02:04:00 PM [facility] BASIC METABOLIC PANEL CALCIUM TOTAL BASIC METABOLIC PANEL Routi ne 11/16/2019 10:04 AM EDT 11/16/2019 02:04:00 PM EDT [facility] GLUCOSE QUANTITATIVE BLOOD XCPT REAGENT STRIP POCT GLUCOSE, DOC KED Routine 11/16/2019 7:50 AM EDT 11/16/2019 11:50:00 AM [facility] GLUCOSE QUANTITATIVE BLOOD XCPT REAGENT STRIP POCT GLUCOSE, DOC KED Routine 11/16/2019 4:32 AM EDT 11/16/2019 08:32:00 AM [facility] GLUCOSE QUANTITATIVE BLOOD XCPT REAGENT STRIP POCT GLUCOSE, DOC KED Routine 11/15/2019 11:38 PM EDT 11/16/2019 03:38:00 AM [facility] GLUCOSE QUANTITATIVE BLOOD XCPT REAGENT STRIP POCT GLUCOSE, DOC KED Routine 11/15/2019 8:04 PM EDT 11/16/2019 12:04:00 AM [facility] GLUCOSE QUANTITATIVE BLOOD XCPT REAGENT STRIP POCT GLUCOSE, DOC KED Routine 11/15/2019 3:59 PM EDT 11/15/2019 07:59:00 PM [facility] COVID-19 PCR [facility] COVID-19 PCR Routine 11/15/2019 12:30 PM EDT 11/15/2019 04:30:00 PM [facility] GLUCOSE QUANTITATIVE BLOOD XCPT REAGENT STRIP POCT GLUCOSE, DOC KED Routine 11/15/2019 12:04 PM EDT 11/15/2019 04:04:00 PM [facility] GLUCOSE QUANTITATIVE BLOOD XCPT REAGENT STRIP POCT GLUCOSE, DOC KED Routine 11/15/2019 8:03 AM EDT 11/15/2019 12:03:00 PM [facility] BLOOD COUNT COMPLETE AUTOMATED CBC Routine 11/15/2019 5:46 A M EDT 11/15/2019 09:46:00 AM [facility] PHOSPHORUS INORGANIC PHOSPHORUS LEVEL Routine 11/15/2019 5:46 AM E DT 11/15/2019 09:46:00 AM [facility] MAGNESIUM MAGNESIUM LEVEL Routine 11/15/2019 5:46 AM EDT 11/15/2019 09:46:00 AM [facility] CALCIUM IONIZED CALCIUM, IONIZED Routine 11/15/2019 5:46 AM EDT 11/15/2019 09:46:00 AM [facility] BASIC METABOLIC PANEL CALCIUM TOTAL BASIC METABOLIC PANEL Routi ne 11/15/2019 5:46 AM EDT 11/15/2019 09:46:00 AM [facility] XR CHEST FRONTAL ONLY [id number] XR CHEST FRONTAL ONLY [id number] Routine 11/15/2019 4:33 AM EDT 11/15/2019 08:33:00 AM EDT [facility] GLUCOSE QUANTITATIVE BLOOD XCPT REAGENT STRIP POCT GLUCOSE, GEE YPLED Routine 11/15/2019 3:49 AM EDT 11/15/2019 07:49:00 AM [facility] GLUCOSE QUANTITATIVE BLOOD XCPT REAGENT STRIP POCT GLUCOSE, GEE MORALES Routine 11/15/2019 12:30 AM EDT 11/15/2019 04:30:00 AM [facility] GLUCOSE QUANTITATIVE BLOOD XCPT REAGENT STRIP POCT GLUCOSE, GEE MORALES Routine 11/14/2019 8:00 PM EDT 11/15/2019 12:00:00 AM [facility] GLUCOSE QUANTITATIVE BLOOD XCPT REAGENT STRIP POCT GLUCOSE, DOC LASHANDAD Routine 11/14/2019 4:11 PM EDT 11/14/2019 08:11:00 PM [facility] GLUCOSE QUANTITATIVE BLOOD XCPT REAGENT STRIP POCT GLUCOSE, DOC LASHANDAD Routine 11/14/2019 12:21 PM EDT 11/14/2019 04:21:00 PM [facility] GLUCOSE QUANTITATIVE BLOOD XCPT REAGENT STRIP POCT GLUCOSE, GEE MORALES Routine 11/14/2019 8:31 AM EDT 11/14/2019 12:31:00 PM [facility] GLUCOSE QUANTITATIVE BLOOD XCPT REAGENT STRIP POCT GLUCOSE, DOC KED Routine 11/14/2019 8:07 AM EDT 11/14/2019 12:07:00 PM [facility] BLOOD COUNT COMPLETE AUTOMATED CBC Routine 11/14/2019 4:31 A M EDT 11/14/2019 08:31:00 AM [facility] PHOSPHORUS INORGANIC PHOSPHORUS LEVEL Routine 11/14/2019 4:31 AM E DT 11/14/2019 08:31:00 AM [facility] MAGNESIUM MAGNESIUM LEVEL Routine 11/14/2019 4:31 AM EDT 11/14/2019 08:31:00 AM [facility] BASIC METABOLIC PANEL CALCIUM TOTAL BASIC METABOLIC PANEL Routi ne 11/14/2019 4:31 AM EDT 11/14/2019 08:31:00 AM EDT [facility] GLUCOSE QUANTITATIVE BLOOD XCPT REAGENT STRIP POCT GLUCOSE, GEE MORALES Routine 11/14/2019 4:27 AM EDT 11/14/2019 08:27:00 AM [facility] GLUCOSE QUANTITATIVE BLOOD XCPT REAGENT STRIP POCT GLUCOSE, GEE MORALES Routine 11/13/2019 11:52 PM EDT 11/14/2019 03:52:00 AM [facility] GLUCOSE QUANTITATIVE BLOOD XCPT REAGENT STRIP POCT GLUCOSE, GEE MORALES Routine 11/13/2019 7:55 PM EDT 11/13/2019 11:55:00 PM [facility] URNLS DIP STICK/TABLET REAGENT AUTO MICROSCOPY URINAL YSIS WITH REFLEX URINE CULTURE Routine 11/13/2019 6:19 PM EDT 11/13/2019 10:19 :00 PM [facility] CULTURE BACTERIAL BLOOD AEROBIC W/ID ISOLATES BLOOD CULTURE R outine 11/13/2019 6:19 PM EDT 11/13/2019 10:19:00 PM EDT [facility] CULTURE BACTERIAL BLOOD AEROBIC W/ID ISOLATES BLOOD CULTURE R outine 11/13/2019 6:19 PM EDT 11/13/2019 10:19:00 PM EDT [facility] GLUCOSE QUANTITATIVE BLOOD XCPT REAGENT STRIP POCT GLUCOSE, GEE MORALES Routine 11/13/2019 4:39 PM EDT 11/13/2019 08:39:00 PM [facility] XR ABDOMEN AP ABD SUPINE ONLY [id number] [place] [id number] STAT 11/13/2019 12:15 PM EDT 11/13/2019 04:15:00 PM [facility] GLUCOSE QUANTITATIVE BLOOD XCPT REAGENT STRIP POCT GLUCOSE, GEE MORALES Routine 11/13/2019 12:12 PM EDT 11/13/2019 04:12:00 PM [facility] BLOOD COUNT COMPLETE AUTOMATED CBC STAT 11/13/2019 11:00 A M EDT 11/13/2019 03:00:00 PM [facility] BASIC METABOLIC PANEL CALCIUM TOTAL BASIC METABOLIC PANEL STAT 11/13/2019 11:00 AM EDT 11/13/2019 03:00:00 PM EDT [facility] XR ABDOMEN AP ABD SUPINE ONLY [id number] XR ABDOMEN AP ABD SUPIN E ONLY [id number] Routine 11/13/2019 10:27 AM EDT 11/13/2019 02:27:00 PM [facility] GLUCOSE QUANTITATIVE BLOOD XCPT REAGENT STRIP POCT GLUCOSE, GEE MORALES Routine 11/13/2019 8:34 AM EDT 11/13/2019 12:34:00 PM [facility] GLUCOSE QUANTITATIVE BLOOD XCPT REAGENT STRIP POCT GLUCOSEGEE Routine 11/13/2019 4:19 AM EDT 11/13/2019 08:19:00 AM [facility] XR CHEST FRONTAL ONLY [id number] XR CHEST FRONTAL ONLY [id number] Routine 11/13/2019 2:55 AM EDT 11/13/2019 06:55:00 AM EDT [facility] GLUCOSE QUANTITATIVE BLOOD XCPT REAGENT STRIP POCT GLUCOSE, GEE MORALES Routine 11/12/2019 11:52 PM EDT 11/13/2019 03:52:00 AM [facility] BLOOD COUNT COMPLETE AUTOMATED CBC Routine 11/12/2019 11:48 P M EDT 11/13/2019 03:48:00 AM [facility] BASIC METABOLIC PANEL CALCIUM TOTAL BASIC METABOLIC PANEL Routi ne 11/12/2019 11:48 PM EDT 11/13/2019 03:48:00 AM EDT [facility] GLUCOSE QUANTITATIVE BLOOD XCPT REAGENT STRIP POCT GLUCOSE, GEE MORALES Routine 11/12/2019 7:38 PM EDT 11/12/2019 11:38:00 PM [facility] GLUCOSE QUANTITATIVE BLOOD XCPT REAGENT STRIP POCT GLUCOSE, GEE MORALES Routine 11/12/2019 3:59 PM EDT 11/12/2019 07:59:00 PM [facility] GLUCOSE QUANTITATIVE BLOOD XCPT REAGENT STRIP POCT GLUCOSEGEE Routine 11/12/2019 12:03 PM EDT 11/12/2019 04:03:00 PM [facility] BLOOD GASES ANY COMBINATION PH PCO2 PO2 CO2 HCO3 BLOOD GAS, ART ERIAL Routine 11/12/2019 11:07 AM EDT 11/12/2019 03:07:00 PM [facility] GLUCOSE QUANTITATIVE BLOOD XCPT REAGENT STRIP POCT GLUCOSEGEE Routine 11/12/2019 8:21 AM EDT 11/12/2019 12:21:00 PM [facility] XR CHEST FRONTAL ONLY [id number] XR CHEST FRONTAL ONLY [id number] Routine 11/12/2019 5:35 AM EDT 11/12/2019 09:35:00 AM [facility] GLUCOSE QUANTITATIVE BLOOD XCPT REAGENT STRIP POCT GLUCOSEGEE Routine 11/12/2019 4:12 AM EDT 11/12/2019 08:12:00 AM [facility] BLOOD COUNT COMPLETE AUTOMATED CBC Routine 11/12/2019 12:17 A M EDT 11/12/2019 04:17:00 AM [facility] BASIC METABOLIC PANEL CALCIUM TOTAL BASIC METABOLIC PANEL Routi ne 11/12/2019 12:17 AM EDT 11/12/2019 04:17:00 AM T [facility] GLUCOSE QUANTITATIVE BLOOD XCPT REAGENT STRIP POCT GLUCOSEGEE Routine 11/11/2019 11:56 PM EDT 11/12/2019 03:56:00 AM [facility] GLUCOSE QUANTITATIVE BLOOD XCPT REAGENT STRIP POCT GLUCOSEGEE Routine 11/11/2019 8:21 PM EDT 11/12/2019 12:21:00 AM [facility] BLOOD GASES ANY COMBINATION PH PCO2 PO2 CO2 HCO3 BLOOD GAS, ART ERIAL Routine 11/11/2019 5:27 PM EDT 11/11/2019 09:27:00 PM [facility] GLUCOSE QUANTITATIVE BLOOD XCPT REAGENT STRIP POCT GLUCOSE, GEE MORALES Routine 11/11/2019 3:53 PM EDT 11/11/2019 07:53:00 PM [facility] BLOOD GASES ANY COMBINATION PH PCO2 PO2 CO2 HCO3 BLOOD GAS, ART ERIAL Routine 11/11/2019 3:12 PM EDT 11/11/2019 07:12:00 PM [facility] GLUCOSE QUANTITATIVE BLOOD XCPT REAGENT STRIP POCT GLUCOSE, GEE MORALES Routine 11/11/2019 12:01 PM EDT 11/11/2019 04:01:00 PM [facility] GLUCOSE QUANTITATIVE BLOOD XCPT REAGENT STRIP POCT GLUCOSE, GEE MORALES Routine 11/11/2019 8:00 AM EDT 11/11/2019 12:00:00 PM [facility] XR CHEST FRONTAL ONLY [id number] XR CHEST FRONTAL ONLY [id number] Routine 11/11/2019 7:50 AM EDT 11/11/2019 11:50:00 AM EDT [facility] BLOOD COUNT COMPLETE AUTOMATED CBC Routine 11/11/2019 5:39 A M EDT 11/11/2019 09:39:00 AM [facility] BASIC METABOLIC PANEL CALCIUM TOTAL BASIC METABOLIC PANEL Routi ne 11/11/2019 5:39 AM EDT 11/11/2019 09:39:00 AM [facility] GLUCOSE QUANTITATIVE BLOOD XCPT REAGENT STRIP POCT GLUCOSE, GEE MORALES Routine 11/11/2019 5:11 AM EDT 11/11/2019 09:11:00 AM [facility] GLUCOSE QUANTITATIVE BLOOD XCPT REAGENT STRIP POCT GLUCOSE, GEE MORALES Routine 11/11/2019 12:02 AM EDT 11/11/2019 04:02:00 AM [facility] GLUCOSE QUANTITATIVE BLOOD XCPT REAGENT STRIP POCT GLUCOSE, GEE MORALES Routine 11/10/2019 8:01 PM EDT 11/11/2019 12:01:00 AM [facility] GLUCOSE QUANTITATIVE BLOOD XCPT REAGENT STRIP POCT GLUCOSE, GEE MORALES Routine 11/10/2019 3:59 PM EDT 11/10/2019 07:59:00 PM [facility] GLUCOSE QUANTITATIVE BLOOD XCPT REAGENT STRIP POCT GLUCOSE, GEE MORALES Routine 11/10/2019 11:35 AM EDT 11/10/2019 03:35:00 PM [facility] XR CHEST FRONTAL ONLY [id number] XR CHEST FRONTAL ONLY [id number] STAT 11/10/2019 8:49 AM EDT 11/10/2019 12:49:25 PM [facility] GLUCOSE QUANTITATIVE BLOOD XCPT REAGENT STRIP POCT GLUCOSE, GEE MORALES Routine 11/10/2019 7:49 AM EDT 11/10/2019 11:49:00 AM [facility] GLUCOSE QUANTITATIVE BLOOD XCPT REAGENT STRIP POCT GLUCOSE, GEE MORALES Routine 11/10/2019 3:42 AM EDT 11/10/2019 07:42:00 AM [facility] BLOOD COUNT COMPLETE AUTOMATED CBC Routine 11/10/2019 3:24 A M EDT 11/10/2019 07:24:00 AM [facility] BASIC METABOLIC PANEL CALCIUM TOTAL BASIC METABOLIC PANEL Routi ne 11/10/2019 3:24 AM EDT 11/10/2019 07:24:00 AM EDT [facility] GLUCOSE QUANTITATIVE BLOOD XCPT REAGENT STRIP POCT GLUCOSE, GEE MORALES Routine 11/10/2019 12:47 AM EDT 11/10/2019 04:47:00 AM [facility] GLUCOSE QUANTITATIVE BLOOD XCPT REAGENT STRIP POCT GLUCOSE, GEE MORALES Routine 11/09/2019 8:18 PM EDT 11/10/2019 12:18:00 AM [facility] GLUCOSE QUANTITATIVE BLOOD XCPT REAGENT STRIP POCT GLUCOSE, GEE MORALES Routine 11/09/2019 4:00 PM EDT 11/09/2019 08:00:00 PM [facility] CUL BACT XCPT URINE BLOOD/STOOL AEROBIC ISOL SPUTUM CULTURE Ro utine 11/09/2019 1:12 PM EDT 11/09/2019 05:12:00 PM EDT [facility] GLUCOSE QUANTITATIVE BLOOD XCPT REAGENT STRIP POCT GLUCOSE, GEE MORALES Routine 11/09/2019 12:10 PM EDT 11/09/2019 04:10:00 PM [facility] GLUCOSE QUANTITATIVE BLOOD XCPT REAGENT STRIP POCT GLUCOSE, GEE MORALES Routine 11/09/2019 8:10 AM EDT 11/09/2019 12:10:00 PM [facility] BLOOD COUNT COMPLETE AUTOMATED CBC STAT 11/09/2019 6:46 A M EDT 11/09/2019 10:46:00 AM [facility] GLUCOSE QUANTITATIVE BLOOD XCPT REAGENT STRIP POCT GLUCOSE, GEE MORALES Routine 11/09/2019 5:10 AM EDT 11/09/2019 09:10:00 AM [facility] XR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 MODERATELY TO SEVERELY DECREASED: 30-44SEVERELY DECREASED: 15-29RENAL FAILURE: <15 AST 10 U/L 15-37 L [facility] ALT 10 U/L 12-78 L [facility] ALKALINE PHOSPHATASE 93 U/L 46-116 [facility] pital TOTAL BILIRUBIN 0.2 mg/dL 0.2-1.0 [facility] TOTAL PROTEIN 7.2 g/dl 6.4-8.2 [facility] ALBUMIN 2.2 gm/dL 3.4-5.0 *L [facility] ID Date Data Source [id number] 05/08/2020 04:52:00 PM EST [facility] Name Value Range Interpretation Code Description Data Grace rce(s) Supporting Document(s) TSH 4.59 uIU/mL 0.36-3.74 H [facility] ID Date Data Source [id number] 05/08/2020 04:48:00 PM EST [facility] Name Value Range Interpretation Code Description Data Grace rce(s) Supporting Document(s) ESTIMATED AVERAGE GLUCOSE 154.2 mg/dL [facility] ID Date Data Source [id number] 05/08/2020 04:48:00 PM EST [facility] Name Value Range Interpretation Code Description Data Grace rce(s) Supporting Document(s) HGBA1C 7.0 % 3.8-5.6 H [facility] Diabetic > or = to 6.5%Prediabetes 5.7-6 .4%Normal <5.7 ID Date Data Source [id number] 05/08/2020 04:26:00 PM EST [facility] Name Value Range Interpretation Code Description Data Grace rce(s) Supporting Document(s) WHITE BLOOD COUNT 15.8 K/mm3 4.0-10.0 H [facility] freddie RED BLOOD COUNT 3.94 M/mm3 4.00-5.50 L [facility] HEMOGLOBIN 9.8 gm/dL 12.0-16.0 L [facility] HEMATOCRIT 31.6 % 36.0-48.8 L [facility] MEAN CELL VOLUME 80.2 fl 80-96 [facility] MEAN CORPUSCULAR HEMOGLOBIN 24.9 pg 27.0-31.0 L [facility] MEAN CORPUSCULAR HGB CONC 31.0 g/dl 32.0-36.0 L [facility] RED CELL DISTRIBUTION WIDTH 15.6 % 10.0-14.5 H [facility] PLATELET COUNT 462 K/mm3 172-450 H [facility] ID Date Data Source FERRITIN 05/08/2020 12:00:00 AM EST eCW1 ([facility]) Name Value Range Interpretation Code Description Data Grace rce(s) Supporting Document(s) 94 8-252 FERRITIN eCW1 ([facility]) ID Date Data Source IRON PROFILE 05/08/2020 12:00:00 AM EST eCW1 ([facility]) Name Value Range Interpretation Code Description Data Grace rce(s) Supporting Document(s) 17 50-170 IRON eCW1 ([facility]) 218 250-450 TIBC eCW1 ([facility]) 8 20-50 % SATURATION eCW1 ([facility]) ID Date Data Source MAGNESIUM 05/08/2020 12:00:00 AM EST eCW1 ([facility]) Name Value Range Interpretation Code Description Data Grace rce(s) Supporting Document(s) 1.6 1.8-2.4 MAGNESIUM eCW1 ([facility]) ID Date Data Source LIPID PROFILE 05/08/2020 12:00:00 AM EST eCW1 ([facility]) Name Value Range Interpretation Code Description Data Grace rce(s) Supporting Document(s) 127 0-200 CHOLESTEROL eCW1 ([facility]) Cholesterol in LDL [Mass/volume] in Serum or Plasma by calculation 62 0-100 LDL CHOLESTEROL eCW1 ([facility]) 34 40-60 HDL CHOLESTEROL eCW1 ([facility]) 3.7 0.0-5.0 CHOL/HDL RATIO eCW1 ([facility]) 154 0-150 TRIGLYCERIDES eCW1 ([facility]) ID Date Data Source [id number] 05/08/2020 12:00:00 AM EST eCW1 ([facility]) Name Value Range Interpretation Code Description Data Grace rce(s) Supporting Document(s) Hemoglobin A1c/Hemoglobin.total in Blood 7.0 3.8-5.6 HGBA1C eCW1 ([facility]) ID Date Data Source TSH 05/08/2020 12:00:00 AM EST eCW1 ([facility]) Name Value Range Interpretation Code Description Data Grace rce(s) Supporting Document(s) 4.59 0.36-3.74 TSH eCW1 ([facility]) ID Date Data Source CBC 05/08/2020 12:00:00 AM EST eCW1 ([facility]) Name Value Range Interpretation Code Description Data Grace rce(s) Supporting Document(s) 3.94 4.00-5.50 RED BLOOD COUNT eCW1 ([facility]) 15.8 4.0-10.0 WHITE BLOOD COUNT eCW1 ([facility]) 24.9 27.0-31.0 MEAN CORPUSCULAR HEMOGLOB IN eCW1 ([facility]) 31.6 36.0-48.8 HEMATOCRIT eCW1 ([facility]) 9.8 12.0-16.0 HEMOGLOBIN eCW1 ([facility]) 80.2 80-96 MEAN CELL VOLUME eCW1 ([facility]) 15.6 10.0-14.5 RED CELL DISTRIBUTION WID TH eCW1 ([facility]) 462 172-450 PLATELET COUNT eCW1 ([facility]) 31.0 32.0-36.0 MEAN CORPUSCULAR HGB CONC eCW1 ([facility]) ID Date Data Source [id number] 04/06/2020 12:33:00 PM [facility] 1 OrderSheet [facility] Emergency Department [address] [place] [address] Phone #: ext- [phone] 04/06/2020 12:27 Patient: [...] Order 12:46 Alaina Rodríguez Physician 2 OrderSheet [facility] Emergency Department [address] [place] [address] Phone #: ext- [phone] 04/06/2020 12:27 Patient: HANNA GARVIN Sex: F : 1955 Age: 64y Physician;Culture, [...] CHEST STAT 14:36 04/06/2020 Ack'd: 14:46 16:23 [place],(NONCOR) W CON Lexie Lopez R.N.INC PP (Oxygen? [...] R.N.SOLU-Medrol 125 12:54 04/06/2020 Ack'd: 13:20 13:25 [place],mg IV X1 Dose: 125 Lexie Lopez R.N.mg (X1) Physician; R.NCheryl 3 OrderSheet [facility] Emergency Department [address] [place] [address] Phone #: ext- [phone] 04/06/2020 12:27 Patient: HANNA GARVIN Sex: F : 1955 Age: 64yLasix IVP 80 mg 13:53 04/06/2020 14:18 Lupillo(NOW) Alaina Owen R.N. Physician;levoFLOXacin IVPB 14:57 04/06/2020 15:04 Lupillo,500 mg/100mL Alaina Owen R.N.(NOW) Physician; Reason for ordering with alerts: Benefits outweigh risks -- 14:57 04/06/2020 Alaina PringleDuoNeb 3 mL X2 16:22 04/06/2020 Ack'd: 16:22 16:51 Gurabo,Doses: 6 mL (3 mL GuraboLexie Jennifer Jennifer R.N.X2 Doses) R.N.; Verbal order R.N. per; Alaina Rodríguez PhysicianGENERAL ORDERSOrder Description Priority Entered Acknowledged InitialedCardiac Monitor 12:45 04/06/2020 13:03 Lupillo(continuous) Alaina Owen R.N. Physician;EKG 12:45 04/06/2020 13:03 Alaina Wesley R.N. Physician;Saline Lock 12:45 04/06/2020 13:03 Alaina Wesley R.N. Physician;Pulse oximeter 12:45 04/06/2020 13:03 Lupillo,(Continuous) Alaina Owen R.N. Physician;Oxygen titrate to 12:45 04/06/2020 13:03 Lupillo,92% Alaina Owen R.N. Physician;Transfer: (Transfer 18:51 04/06/2020 19:02 [facility] by Alaina Rodríguez R.N.ambulance as per Ph ysician; ([facility] hospitalist) -18:20 04/06/20)[Electronically signed by Suze Menendez R.N. (20:31 04/06/2020)][Electronically signed by Alaina Rodríguez Physician (06:41 04/07/2020)][Electronically locked by Suze Menendez R.N. (20:31 04/06/2020)] Name Value Range Interpretation Code Description Data Grace rce(s) Supporting Document(s) ID Date Data Source [id number] 04/06/2020 12:33:00 PM [facility] 1 Medication Reconciliation Report [facility] Emergency Department [address] [place] [address] Phone #: ext- [phone] 04/06/2020 12:27 Patient: [...] Meloxicam Oral 75mg 2 Medication Reconciliation Report [facility] Emergency Department [address] [place] [address] Phone #: ext- [phone] 04/06/2020 12:27 Patient: [...] rce(s) Supporting Document(s) ID Date Data Source [id number] 04/06/2020 12:33:00 PM EST [facility] 1 Medication Administration Record [facility] Emergency Department [address] [place] [address] Phone #: [phone] 04/06/2020 12:27 Patient: HANNA GARVIN Sex: F [...] left forearmStart LEVOFLOXACIN [IVPB] levoFLOXacin IVPB 500 mg/336qP91:04 04/06/2020 Dose: 500 mg IVPB (NOW)Lexie Wesley R.N. Rate: 100 mL/hr---- Dispensed: 100 mL bagStop Site: #1 left nrppswu36:57 04/06/2020German Contreras RNGiven DUONEB [NEB TX] DuoNeb 3 mL X2 Doses: 6 mL (316:51 04/06/2020 Dose: 2 unit dose Nebulizer Neb TX mL X2 Doses)Lexie Wesley R.N. Name Value Range Interpretation Code Description Data Grace rce(s) Supporting Document(s) ID Date Data Source [id number] 04/06/2020 12:33:00 PM EST [facility] 1 General Instructions [facility] Emergency Department [address] [place] [address] Phone #: ext- [phone] 04/06/2020 12:27 Patient: HANNA GARVIN Sex: F [...] rce(s) Supporting Document(s) ID Date Data Source [id number] 04/06/2020 12:33:00 PM EST [facility] 1 Clinical Report - Nurses [facility] Emergency Department [address] [place] [address] Phone #: [phone] 04/06/2020 12:27 Patient: HANNA GARVIN Sex: F [...] which iscausing low 02 Pt d/c from [facility] March 19 with pneumonia dx. Pt alert and able to speak in fullsentences. EMS reports O2 sat in 80s when they arrived. Pt declined to go to [facility] today.).Triage time: 12:28 04/06/2020. Acuity: LEVEL 3.Chief Complaint: DYSPNEA.Alert.This started today. No fever or weakness.Treatment [employer]:(trach cleaning at home). --13:04/06/20 Rhianna Menendez R.N.12:28 [...] Menendez R.N. 2 Clinical Report - Nurses [facility] Emergency Department [address] [place] [address] Phone #: ext- [phone] 04/06/2020 12:27 Patient: HANNA GARVIN [facility]#: [id number] Sex: F : 1955 Age: 64y PROBLEMS: [...] Bilateral rhonchi 3 Clinical Report - Nurses [facility] Emergency Department [address] [place] [address] Phone #: ext- [phone] 04/06/2020 12:27 Patient: HANNA AGRVIN Sex: F : 1955 Age: 64y present [...] 04/06/20 Julieta Wesley Clinical Report - Nurses [facility] Emergency Department [address] [place] [address] Phone #: ext- [phone] 04/06/2020 12:27 Patient: [...] Wesley R.N. 5 Clinical Report - Nurses [facility] Emergency Department [address] [place] [address] Phone #: ext- [phone] 04/06/2020 12:27 Patient: HANNA GARVIN Sex: F : 1955 Age: 64y13:47 04/06/20. BP: 137/80. MAP: 99. HR: 67. RR: 20. O2 saturation: 95%. --13:47 04/06/20 [facility] Ctco950:02 04/06/20. BP: 124/62. MAP: 82. HR: 68. RR: 17. O2 saturation: 96%. --14:02 04/06/20 [facility] Id[facility]065[facility]18 04/06/2020 Lasix IVP 80 mg given over [...] RR: 16. O2 saturation: 93%. --14:28 04/06/20 [facility], Uxug370:00 04/06/20. BP: 138/73. MAP: 94. HR: 69. RR: 15. O2 saturation: 91%. --15:04/06/20 [facility], Dbmn280:04 04/06/2020 Started 500 mg of Levofloxacin IVPB [...] Wesley R.N. 6 Clinical Report - Nurses [facility] Emergency Department [address] [place] [address] Phone #: ext- [phone] 04/06/2020 12:27 Patient: HANNA GARVIN [facility]#: [id number] Sex: F : 1955 Age: 64y15:28 04/06/20. BP: 155/90. MAP: 111. HR: 71. RR: 19. O2 saturation: 92%. --15:28 04/06/20 Testt, Dbqp771:57 04/06/2020 Levofloxacin IVPB via IV site #1 Discontinued: completed. Total amount infused: 100mL. --15:57 04/06/20 German Contreras RN16:02 04/06/20. BP: 151/95. MAP: 113. HR: 73. RR: 15. O2 saturation: 99%. Temp: 97.8 F. --16: Realitycheck Haif3Tlgleyiqysfw acuity: LEVEL 3.Rounding: Pain: assessed pain level. [...] CT by stretcher with O2, nurse and exhaust emissions automotive technician. --16:23 04/06/20 Lexie Wesley R.N.16:49 04/06/20. BP: [...] RR: 19. O2 saturation: 98%. --17:07 04/06/20 [place] [facility] Mlqr193:30 04/06/20. BP: 136/71. MAP: 92. HR: 70. RR: 16. O2 saturation: 95%. --17:31 04/06/20 Lexie Wesley R.N.Care transferred and report given (Nikki Menendez RN). --17:31 04/06/20 Lexie Wesley R.N. 7 Clinical Report - Nurses [facility] Emergency Department [address] [place] [address] Phone #: ext- [phone] 04/06/2020 12:27 Patient: HANNA GARVIN Sex: F : 1955 Age: 64y 17:33 04/06/20. BP: 136/71. MAP: 92. HR: 71. RR: 15. O2 saturation: 95%. --17:33 04/06/20 [facility] [employer] [facility] Tech1 17:58 04/06/20. BP: 143/74. MAP: 97. HR: 71. RR: 16. O2 saturation: 93%. --17:58 04/06/20 [place] [address] The patient reports no complaints and she is calm and resting quietly. --18:32 04/06/20 Suze Menendez R.N. 19:00 04/06/20. BP: 142/72. MAP: 95. HR: 68. RR: 16. O2 saturation: 94%. --19:00 04/06/20 [place] [address] 19:28 04/06/20. BP: 151/77. MAP: 101. HR: 68. RR: 16. O2 saturation: 98%. --19:28 04/06/20 [place] [address] The patient reports no complaints and she [...] --19:52 04/06/20 Suze Menendez R.N. Transferred to [facility]. Visit overview, summary of care (CCDA), Emtala forms and Face Sheet provided to EMS and transfer facility via paper (pt to go to PCU). Transported via ambulance by cupola tapper helper and EMS with monitor, IV and O2 (Megan Ding and Torey Schmid). --20:21 04/06/20 Suze Menendez R.N. 20:18 04/06/20. BP: 114/93. HR: 68. RR: 15. O2 saturation: 96%. Temp: 97.2 F. Pain level now 0/10. --20:21 04/06/20 Suze Menendez R.N. 8 Clinical Report - Nurses [facility] Emergency Department [address] [place] [address] Phone #: ext [phone] 04/06/2020 12:27 Patient: HANNA GARVIN Sex: F : 1955 Age: 64y Departure time: 20:18 04/06/2020. --20:21 04/06/20 Suze Menendez R.N.Locked/Released at 04/06/2020 20:31 by Suze Menendez R.N. Name Value Range Interpretation Code Description Data Grace rce(s) Supporting Document(s) ID Date Data Source [id number] 04/06/2020 12:33:00 PM EST [facility] 1 Clinical Report - Physicians/Mid Levels [facility] Emergency Department [address] [place] [address] Phone #: ext [phone] 04/06/2020 12:27 Patient: HANNA GARVIN Sex: F [...] facility and hospitalized. ( Was hospitalized at [facility] for a prolonged time with pneumonia - [...] MSSA 2 Clinical Report - Physicians/Mid Levels [facility] Emergency Department [address] [place] [address] Phone #: ext- [phone] 04/06/2020 12:27 Patient: HANNA GARVIN Sex: F [...] Progress 3 Clinical Report - Physicians/Mid Levels [facility] Emergency Department [address] [place] [address] Phone #: ext- [phone] 04/06/2020 12:27 Patient: [...] results 4 Clinical Report - Physicians/Mid Levels [facility] Emergency Department [address] [place] [address] Phone #: ext- [phone] 04/06/2020 12:27 [id number] Sex: F : 1955 Age: 64y Test [...] Male GFR Interprentation 20-49 yrs >60 mL/min Qcyxjs17-79 yrs >56 mL/min Normal 60-69 yrs >49 mL/min Normal 70- 79yrs>42 mL/min Normal 80 and above >35 mL/min Normal Female GFRInterpretation 20-39 yrs >60 mL/min Normal 40-49 yrs >58 mL/minNormal 50-59 yrs >51 mL/min Normal 60-69 yrs >45 mL/min Ysqljn00-69 yrs >39 mL/min Normal 80 and above [...] Negat 5 Clinical Report - Physicians/Mid Levels [facility] Emergency Department [address] [place] [address] Phone #: ext- [phone] 04/06/2020 12:27 Patient: HANNA GARVIN Sex: F : 1955 Age: 64y UROBILINOGEN 1 (less than 1.0 MICROSCOPIC See Below WBC 10 - 15 A (NORMAL: NONE RBC 1 - 3 (NORMAL: NONE EPITHELIAL FEW (NORMAL: NONE BACTERIA 1+ SMALL (NORMAL: NONE YEAST Many A Troponin-T: (JOSE LUIS: 04/06/2020 12:35) ( [facility] 04/06/2020 13:31) Final results Test Result Flag Units (Reference) TROPONIN T 0.02 NG/ML (0.00 - 0.10) TROPONIN T0.1 ng/ml Recommended as the clinical threshold value forTroponin T. Lactic Ac id: (JOSE LUIS: 04/06/2020 12:35) ( [facility] 04/06/2020 13:13) Final results Test Result Flag Units (Reference) LACTIC ACID 1.8 MMOL/L (0.2 - 2.2) D-Dimer: (JOSE LUIS: 04/06/2020 12:35) ( [facility] 04/06/2020 13:28) Final results Test Result Flag Units (Reference) D-DIMER QUANT 2.26 H ug/mL (0.27 - 0.50) Chest Portable 1 View: (JOSE LUIS: 04/06/2020 12:45) ( [facility] 04/06/2020 14:34) In Progress CHEST PORTABLE Reason(s): Shortness of Breath TRANSPORTATION: S IV? O2? Oxygen?(Yes) Room: E Venous Blood Gas: (JOSE LUIS: 04/06/2020 12:45) ( [facility] 04/06/2020 12:50) Canceled . Note - Tests: [...] that must be addressed. I spoke with [facility] hospitalist (Dr. Houser) and he will [...] IV 6 Clinical Report - Physicians/Mid Levels [facility] Emergency Department [address] [place] [address] Phone #: ext- [phone] 04/06/2020 12:27 Patient: HANNA GARVIN Sex: F : 1955 Age: 64y placement and phlebotomy- see progress notes. Disposition: Benefits, risks and alternatives to transfer explained to patient. Transferred to [facility]. UTI (catheter associated) present prior to transfer. Summary of care (CCDA) provided to transport team, EMS, patient, family and transfer facility via paper and digital media. 18:30 Apr 06 2020 Transfer to [facility] by ambulance as per Dr. Houser [...] Name Value Range Interpretation Code Description Data [facility] rce(s) Supporting Document(s) ID Date Data Source [id number] 04/06/2020 12:33:00 PM [facility] VisitID: [id number] Date: 16:48wound culture report positive for 3 different organisms. she was transferred to [facility] and d/c. wasn't d/c onany antibiotics, results shown to Tobias Rogers who recommended septra ds 1 po BID x14 days, pt called andmade aware, [facility].(Electronically signed by German Contreras RN - 04/10/2020 16:48) Name Value Range Interpretation Code Description Data [facility](s) Supporting Document(s) ID Date Data Source [id number] 04/10/2020 08:56:00 AM [facility] [address] [place] [address] PHONE: [phone] FAX: [phone] Name .................. : BHARATHI FERREIRA Acct Number.................. : [id number] ROOM. ................. : TR-05 MR Number ................... : [id number] Stay type ............. : E/R Discharge Date......... ... : 04/06/20 Admit Date .... ..... : 04/06/20 Admit Phys .................... : MANJEET TAYLOR Date of ....... : 1955 Family Phys ................... : Phone .................. : [phone] Age ................................ : 64 Film# .................. .:[id number] Sex ................................. : F Unsigned transcriptions are preliminary reports and do not represent a medical or legal document CHEST PORTABLE [id number] COMPLETE:04/06/20 14:34 ARS 30727 Reason(s): Shortness of Breath PORTABLE CHEST X-RAY: INDICATION: Shortness of breath. FINDINGS: Cephalization of the vasculature is identified and the lung bases are poorly defined. Findings suggest CHF. A tracheostomy is in place. Post surgical changes are present in the spine. IMPRESSION: Suspected CHF. Examination dictated by MARYJ ANE Rose. Examination was reviewed with Maggie Vines [...] rce(s) Supporting Document(s) ID Date Data Source [id number] 04/09/2020 10:05:00 AM EST [facility] [address] [place] [address] PHONE: [phone] FAX: [phone] Name .................. : BHARATHI FERREIRA Acct Number.................. : [id number] ROOM. ................. : TR-05 Number ................... : [id number] Stay type ............. : E/R Discharge Date......... ... : 04/06/20 Admit Date .... ..... : 04/06/20 Admit Phys .................... : MANJEET TAYLOR Date of ....... : 1955 Family Phys ................... : Phone .................. : [phone] Age ................................ : 64 Film# .................. .:[id number] Sex ................................. : F Unsigned transcriptions are preliminary reports and do not represent a medical or legal document CT CTA CHEST NON-CORONARY W [place] [id number] COMPLETE:04/06/20 16:55 KJE 52539 Reason(s): SOB / Dyspnea / CHF CTA [...] dose: 2518.8 mGycm Page 1 of 2 [facility] [address] [place] [address] PHONE: [phone] FAX: [phone] Name .................. : BHARATHI FERREIRA Acct Number.................. : [id number] ROOM. ................. : TR-05 MR Number ................... : [id number] Stay type ............. : E/R Discharge Date......... ... : 04/06/20 Admit Date ......... : 04/06/20 Admit Phys .................... : MANJEET TAYLOR Date of ....... : 1955 Family Phys ................... : Phone .................. : [phone] Age ................................ : 64 Film# .................. .:[id number] Sex ................................. : F Unsigned transcriptions are preliminary reports and do not represent a medical or legal document CT CTA CHEST NON-CORONARY W C [id number] COMPLETE:04/06/20 16:55 KJE 40469 Reason(s): SOB / Dyspnea / CHF Contrast [...] rce(s) Supporting Document(s) ID Date Data Source [id number] 04/09/2020 09:58:00 AM EST [facility] [address] [place] [address] PHONE: [phone] FAX: [phone] Name .................. : BHARATHI FERREIRA Acct Number.................. : [id number] ROOM. ................. : TR-05 Number ................... : [id number] Stay type ............. : E/R Discharge Date......... ... : 04/06/20 Admit Date .... ..... : 04/06/20 Admit Phys .................... : JUVENTINO BRANDON Date of ....... : 1955 Family Phys ................... : Phone .................. : [phone] Age ................................ : 64 Film# .................. .:[id number] Sex ................................. : F Unsigned transcriptions are preliminary reports and do not represent a medical or legal document CT ABD & PELVIS W/ IV ONLY [id number] COMPLETE:04/06/20 16:55 E 57557 Reason(s): Abdominal Distention CT OF THE ABDOMEN [...] suspicious osseous abnormality. Page 1 of 2 [facility] [address] [place] [address] PHONE: [phone] FAX: [phone] Name .................. : BHARATHI FERREIRA Acct Number.................. : [id number] ROOM. ................. : TR-05 Number ................... : [id number] Stay type ............. : E/R Discharge Date......... ... : 04/06/20 Admit Date ......... : 04/06/20 Admit Phys .................... : MANJEET TAYLOR Date of ....... : 1955 Family Phys ................... : Phone .................. : [phone] Age ................................ : 64 Film# .................. .:[id number] Sex ................................. : F Unsigned transcriptions are preliminary reports and do not represent a medical or legal document CT ABD & PELVIS W/ IV ONLY [id number] COMPLETE:04/06/20 16:55 KJE 84495 Reason(s): Abdominal Distention Urinary bladder: No focal [...] Dictation Date: Copy for: EMERGENCY DEPT via [facility] Copy for: 710 MED REC DISCHARGED Page 2 of 2 Name Value Range Interpretation Code Description Data Grace rce(s) Supporting Document(s) ID Date Data Source [id number] 04/09/2020 09:24:00 AM [facility] [address] [place] [address] RESPIRATORY CARE REPORT ==== ---------NAME------- NUMBER SEX AGE ADMIT DISC. XRAY# F/C LES FERREIRA [id number] F 64 04/06/20 04/06/20 [id number] X6B E/R DATE OF : 1955 M/R# [id number] #: [id number] TR-05 LOCATION: EMERGENCY DEPT FORMERLY [facility] [address] COMPLE TE:04/06/20 13:55 [facility] [address] PHYSICIAN: MANJEET TAYLOR Name Value Range Interpretation Code Description Data Grace rce(s) Supporting Document(s) ID Date Data Source [id number] 04/10/2020 10:02:00 AM EST [facility] Name Value Range Interpretation Code Description Data Grace rce(s) Supporting Document(s) CULTURE WOUND [facility] CORRECTE D REPORT _CULTURE WOUND_$$[id number]$$372423$$476710$$289090$$[id number]$$[id number] DATE/TIME: 04/10/2020 08:08Culture: CULTURE WOUND Status: FinalIsolate 1 Klebsiella pneumoniae Flag: A . . . . . . .5Heavy growth Previous result entered on 04/09/2020 09:46 ET Klebsiella pneumoniae Previous result entered on 04/08/2020 06:45 ET Gram negative rodsAerobic Bacterial Culture: L7Xqjpulrsss pneumoniae Flag: AIsolate 2 Pseudomonas aeruginosa Flag: A . . . . . . .5Moderate growth Previous result entered on 04/09/2020 09:46 ET Pseudomonas aeruginosa Previous result entered on 04/08/2020 06:45 ET Gram negative rodsPseudomonas aeruginosa Flag: A -- Continued on next page --Patient: BHARATHI FERREIRA Order: [id number] Page 2Culture: CULTURE WOUND Status: Final ====Isolate [...] possible pathogensis in progress.Staphylococcus aureus Flag: APatient: BHAARTHI FERREIRA Order: [id number] Page 3Culture: CULTURE WOUND Status: Final ====ISOLATE [...] S S Vancomycin P1 Test performed by: [facility] Britney VELEZ #: [id number] [address] [place] [id number] [facility] [id number] Director : David Franklin MD NPI #:Company Driver : 04/09/20.0540.XMT.SENT REF 04/09/20.0705.XMT.SENT REF 04/09/20.1844.XMT.SENT REF -- Continued on next page --Patient: BHARATHI FERREIRA Order: [id number] Page 4Culture: CULTURE WOUND Status: Final ==== [...] Trimethoprim/Sulfa S S ID Date Data Source [id number] 04/11/2020 06:36:00 PM [facility] [address] Name Value Range Interpretation Code Description Data Grace rce(s) Supporting Document(s) Bacteria identified in Blood by Culture [facility] NO GROWTH AFTER 5 DAYS ID Date Data Source [id number] 04/14/2020 09:04:00 AM [facility] Name Value Range Interpretation Code Description Data Grace rce(s) Supporting Document(s) CULTURE URINE [facility] _CULTURE URINE_$$[id number]$$727157$$097598$$093820$$322377$$091828$$350195$$462206$$586417$$ 834918$$735752$$498108$$665339$$665042$$492379$$597056$$874227$$307074$$792835$$ 976420$$547195$$566036$$018197$$178887$$550974$$051076$$[id number] -- Continued on next page --Patient: BHARATHI FERREIRA Order: [id number] Page 2Culture: CULTURE URINE Status: Final ==== -- Continued on next page --Patient: BHARATHI FERREIRA Order: [id number] Page 2Culture: CULTURE URINE Status: Prelim =====$$[id number]$$[id number] DATE/TIME: 04/09/2020 13:05Culture: CULTURE URINE Status: FinalIsolate 1 Yeast Flag: A . . . . . . .7txyfgeaa97,000-100,000 colony forming units per mLRequest for further identification must be madewithin 1 week. Previous result entered on 04/08/2020 01:01 ET Microbiological testing to rule out the presence of possible pathogensis in progress.Urine Culture,Comprehensive: U8Yauqo Flag: AP1 Test performed by: [facility] CLIA #: [id number] [address] [id number] [facility] [address]Mxmnaku Director : David Franklin MD NPI #:Company Driver : 04/09/20.0540.XMT.SENT REF 04/14/20.0726.XMT.SENT REF 04/14/20.0904.XMT.SENT REF ID Date Data Source [id number] 04/14/2020 07:18:00 AM EST [facility] Name Value Range Interpretation Code Description Data Grace rce(s) Supporting Document(s) CULTURE BLOOD [facility] _CULTURE BLOOD_ [place] [address] CLIA# [id number] SEE SCANNED REPORT{ PRELIM ID Date Data Source [id number] 04/10/2020 10:02:00 AM [facility] Name Value Range Interpretation Code Description Data Grace rce(s) Supporting Document(s) CULTURE WOUND [facility] _CULTURE WOUND_$$[id number]$$763431$$99 7878$$219703$$456364$$[id number] DATE/TIME: 04/10/2020 08:08Culture: CULTURE WOUND Status: PrelimAerobic Bacterial Culture: J4Czlewwbbjoqldfj testing to rule out the presence of possiblepathogens is in progress.Isolate 1 Klebsiella pneumoniae Flag: A . . . . . . .5Heavy growth Previous result entered on 04/09/2020 09:46 ET Gram negative rods Previous result entered on 04/08/2020 06:45 ET Specimen has been received and testing has been initiated.Klebsiella pneumoniae Flag: APatient: BHARATHI FERREIRA Order: [id number] Page 2Culture: CULTURE WOUND Status: Prelim =====ISOLATE [...] S S . . . . . .02742-7Szaqohfaei S S . . . . . .267-5Imipenem S S . . . . . .279-0Levofloxacin S S . . . . . .77668-2Jbkszlwlo S S . . . . . .6652-2Piperacillin/Tazobactam S S . . . . . .412- 7Tetracycline S S . . . . . .496-0Tobramycin S S . . . . . .508-2Trimethoprim/Sulfa S S . . . . . .516-5P1 Test performed by: [facility] #: [id number] [address] [place] [address] Avenue [id number] [facility] [address]Pdnthcy Director : David Franklin MD NPI #:Company Driver : 04/09/20.0540.XMT.SENT REF 04/09/20.1844.XMT.SENT REF 04/10/20.1003.XMT.SENT REF ID Date Data Source [id number] 04/06/2020 01:18:00 PM [facility] Name Value Range Interpretation Code Description Data Grace rce(s) Supporting Document(s) [facility] URINALYSIS SOURCE R [facility] al COLOR yellow NORMAL: Yellow [facility] CLARITY cloudy NORMAL: Clear [facility] spital Specific gravity of Urine by Test strip 1.025 1.001 - 1.030 [facility] pH 5 5 - 9 [facility] al Glucose [Mass/volume] in Urine by Test strip NORM NORMAL: [facility]at [facility] Bilirubin.total [Presence] in Urine by Test strip 3 NORMAL: Negative [facility] Ketones [Presence] in Urine by Test strip 5 NORMAL: Negative [facility] Protein [Mass/volume] in Urine by Test strip 100 NORMAL: Negat [facility] Nitrite [Presence] in Urine by Test strip NEG NORMAL: Negative [facility] BLOOD 150 NORMAL: Negative [facility] Leukocyte esterase [Presence] in Urine by Test strip 500 RAOUL L: Negative [facility] Urobilinogen [Mass/volume] in Urine by Test strip 1 less onofre n 1.0 mg/dL [facility] MICROSCOPIC See Below [facility] ital WBC 10 - [address]: [address] [facility] Erythrocytes [#/volume] in Urine by Test strip 1 - 3 NORMAL: NON E SEEN [facility] EPITHELIAL FEW NORMAL: NONE SEEN [facility] Bacteria [Presence] in Urine sediment by Light microscopy 1+ SMALL NORMAL: NONE SEEN [facility] YEAST Many A [facility] ID Date Data Source [id number] 04/14/2020 07:18:00 AM [facility] Name Value Range Interpretation Code Description Data Grace rce(s) Supporting Document(s) CULTURE BLOOD [facility] _CULTURE BLOOD_ TEST PERFORM ED AT [address] [address] CLIA# [id number] SEE SCANNED REPORT{ PRELIM ID Date Data Source [id number] 04/06/2020 02:57:00 PM [facility] Name Value Range Interpretation Code Description Data Grace rce(s) Supporting Document(s) CBC W/AUTOMATED DIFF [facility] COMPLETE BLOOD COUNT Leukocytes [#/volume] in Blood by Automated count 15.6 10^3/uL 4.2 - 11.0 H [facility] Erythrocytes [#/volume] in Blood by Automated count 3.82 10^6/uL 4. 20 - 5.40 L [facility] Hemoglobin [Mass/volume] in Blood 9.8 g/dL 12.0 - 16.0 L [facility] Hematocrit [Volume Fraction] of Blood by Automated count 32.5 % 3 7.0 - 47.0 L [facility] Erythrocyte mean corpuscular volume [Entitic volume] by Auto mated count 85.1 fL 81.0 - 101 [facility] Erythrocyte mean corpuscular hemoglobin [Entitic mass] by Automated count 25.7 pg 27.0 - 34.0 L [facility] Erythrocyte mean corpuscular hemoglobin concentration [Mass/volume] by Automated count 30.2 g/dL 31.0 - 36.0 L [facility] Erythrocyte distribution width [Ratio] by Automated count 15.9 % 11.5 - 14.5 H [facility] Platelets [#/volume] in Blood by Automated count 461 10^3/uL 150 - 45 0 H [facility] Platelet mean volume [Entitic volume] in Blood by Automated count 8.4 fL 7.4 - 10.4 [facility] Neutrophils/100 leukocytes in Blood by Automated count 74.6 % 37. 0 - 80.0 [facility] Lymphocytes/100 leukocytes in Blood by Manual count 9.2 % 25.0 - 40.0 L [facility] Monocytes/100 leukocytes in Blood by Automated count 9.3 % 3.0 - 8.0 H [facility] Eosinophils/100 leukocytes in Blood by Automated count 5.6 % 0.0 - 7.0 [facility] Basophils/100 leukocytes in Blood by Automated count 0.8 % 0.0 - 2.5 [facility] %IG 0.5 % 0.0 - 0.0 H [facility] %NRBC 0.0 % 0.0 - 0.0 [facility] al Neutrophils [#/volume] in Blood by Automated count 11.64 10^3/uL 2. 00 - 6.90 H [facility] Lymphocytes [#/volume] in Blood by Automated count 1.43 10^3/uL 0.60 - 3.40 [facility] Monocytes [#/volume] in Blood by Automated count 1.46 10^3/uL 0.00 - 0.90 H [facility] Eosinophils [#/volume] in Blood by Automated count 0.88 10^3/uL 0.00 - 0.70 H [facility] Basophils [#/volume] in Blood by Automated count 0.13 10^3/uL 0.00 - 0.20 [facility] #IG 0.08 10^3/uL 0.00 - 0.10 [facility] #NRBC 0.00 10^3/uL 0.00 - 0.00 [facility] ospital MANUAL DIFF SEE BELOW [facility] ital Segmented neutrophils/100 leukocytes in Blood by Manual count 78 % 37 - 80 [facility] %LYMPH 12 % 25 - 40 L [facility] al %MONO 5 % 3 - 8 [facility] %EOS 5 % 0 - 7 [facility] Blasts/100 leukocytes in Blood by Manual count 0 % [facility] RBC MORPH SEE BELOW [facility] al HYPO 1+ NORMAL: NONE SEEN A [facility] { SICKLE CELL (NORMAL: NONE SEEN ) Platelet adequacy [Presence] in Blood by Light microscopy IN CREASED NORMAL: NORMAL A [facility] COMMENT: ID Date Data Source [id number] 04/06/2020 02:56:00 PM EST [facility] Name Value Range Interpretation Code Description Data Grace rce(s) Supporting Document(s) COMPREHENSIVE METABOLIC PANEL [facility] COMPREHENSIVE METABOLIC PANEL Sodium [Moles/volume] in Serum or Plasma 141 mEq/L 134 - 153 [facility] Potassium [Moles/volume] in Serum or Plasma 4.2 mEq/L 3.6 - 5.0 [facility] Chloride [Moles/volume] in Serum or Plasma 98 mEq/L 98 - 107 [facility] Carbon dioxide, total [Moles/volume] in Serum or Plasma 38 MEQ/L 22 - 30 H [facility] Glucose [Mass/volume] in Serum or Plasma 126 MG/DL 65 - 110 H [facility] BUN 19 MG/DL 7 - 21 [facility] Creatinine [Mass/volume] in Serum or Plasma 0.5 MG/DL 0.7 - 1.5 L [facility] BUN/CREAT 38 8 - 27 H [facility] Protein [Mass/volume] in Serum or Plasma 6.3 G/DL 6.3 - 8.2 [facility] Albumin [Mass/volume] in Serum or Plasma 3.1 G/DL 3.9 - 5.0 L [facility] Globulin [Mass/volume] in Serum by calculation 3.2 GM/DL 2.4 - 3.2 [facility] A/G RATIO 1.0 0.8 - 2.0 [facility] Calcium [Mass/volume] in Serum or Plasma 8.8 MG/DL 8.4 - 10.2 [facility] Bilirubin.total [Mass/volume] in Serum or Plasma <0.7 MG/DL 0.2 - 1.3 [facility] Alkaline phosphatase [Enzymatic activity/volume] in Serum or Plasma 72 U/L 38 - 126 [facility] Aspartate aminotransferase [Enzymatic activity/volume] in Se rum or Plasma 7 U/L 5 - 40 [facility] Alanine aminotransferase [Enzymatic activity/volume] in Seru m or Plasma 9 U/L 7 - 56 [facility] Anion gap 3 in Serum or Plasma 5.0 mmol/L 8.0 - 16.0 L [facility] AGE 64 yrs [facility] Hospit al NON-AA GFR >60 mL/min [facility] Hosp ital AFR AMER GFR >60 [facility] Hos pital Male GFR In [...] >32 mL/min Normal ID Date Data Source [id number] 04/06/2020 01:38:00 PM [facility] Name Value Range Interpretation Code Description Data Grace rce(s) Supporting Document(s) BNP 1284 PG/ML 0 - 125 [facility] ID Date Data Source [id number] 04/06/2020 01:31:00 PM [facility] Value Range Interpretation Code Description Data Grace rce(s) Supporting Document(s) TROPONIN T 0.02 NG/ML 0.00 - 0.10 [facility] spital TROPONIN T0.1 ng/ml Recommended as the c linical threshold value forTroponin T. ID Date Data Source [id number] 04/06/2020 01:28:00 PM [facility] Name Value Range Interpretation Code Description Data Grace rce(s) Supporting Document(s) Fibrin D-dimer FEU [Mass/volume] in Platelet poor plasma 2.26 ug /mL 0.27 - 0.50 H [facility] ID Date Data Source [id number] 04/06/2020 01:11:00 PM [facility] Value Range Interpretation Code Description Data Grace rce(s) Supporting Document(s) Lactate [Moles/volume] in Serum or Plasma 1.8 MMOL/L 0.2 - 2.2 [facility] ID Date Data Source [id number] 02/20/2020 10:18:06 AM EDT [facility] Name Value Range Interpretation Code Description Data Grace rce(s) Supporting Document(s) Discharge Summary [facility] CYRAQc4lCoDCHuKa68/JBFafWRXld2XlXVjqCHc3GKbmLATmY1JeGPA6pN5fNYO4XKsTWhYcIoXtKBZu lbm [file] [facility]+Nc904Iij+09wm4ur7hTowbLtGMRL/gXdXw/LEYFFAtiB7nMkUmrJwuJtotjDyCm3xuWaV8/G2C0w [file] AgICAgICAgICAgICAgICAgICAgICAgICAgICAgICAgICAgICAgICAgICAgICAgICAgICAgICAgICAgIC AgICAgICAgICAgICAgICAgICAgICAgICAgICAgICAg ICAgICAgICANCiAgICAgICAgICAgICAgICAgICAgICAgICAgICAgICAgICAgICAgICAgICAgICAgICAg ICAgICAgICAgICAgICAgICAgICAgICAgICAgICAgICAgICAgICAgICAgICAgICAgICANCiAgICAgICAg ICAgICAgICAgICAgICAgICAgICAgICAgICAgICAgIC AgICAgICAgICAgICAgICAgICAgICAgICAgICAgICAgICAgICAgICAgICAgICAgICAgICAgICAgICAgIC ANCiAgICAgICAgICAgICAgICAgICAgICAgICAgICAgICAgICAgICAgICAgICAgICAgICAgICAgICAgIC AgICAgICAgICAgICAgICAgICAgICAgICAgICAgICAg ICAgICAgICAgICANCiAgICAgICAgICAgICAgICAgICAgICAgICAgICAgICAgICAgICAgICAgICAgICAg ICAgICAgICAgICAgICAgICAgICAgICAgICAgICAgICAgICAgICAgICAgICAgICAgICAgICANCiAgICAg ICAgICAgICAgICAgICAgICAgICAgICAgICAgICAgIC AgICAgICAgICAgICAgICAgICAgICAgICAgICAgICAgICAgICAgICAgICAgICAgICAgICAgICAgICAgIC AgICANCiAgICAgICAgICAgICAgICAgICAgICAgICAgICAgICAgICAgICAgICAgICAgICAgICAgICAgIC AgICAgICAgICAgICAgICAgICAgICAgICAgICAgICAg ICAgICAgICAgICAgICANCiAgICAgICAgICAgICAgICAgICAgICAgICAgICAgICAgICAgICAgICAgICAg ICAgICAgICAgICAgICAgICAgICAgICAgICAgICAgICAgICAgICAgICAgICAgICAgICAgICAgICANCiAg ICAgICAgICAgICAgICAgICAgICAgICAgICAgICAgIC AgICAgICAgICAgICAgICAgICAgICAgICAgICAgICAgICAgICAgICAgICAgICAgICAgICAgICAgICAgIC AgICAgICANCiAgICAgICAgICAgICAgICAgICAgICAgICAgICAgICAgICAgICAgICAgICAgICAgICAgIC AgICAgICAgICAgICAgICAgICAgICAgICAgICAgICAg ICAgICAgICAgICAgICAgICANCjw/oHHrF3zufEHaglT4D5qfMi0JLa8ARR4uv0VlELNnTGwomeKvYknR OhYrCPGuHakXKbx1IApyVO5HuNKzZ7BuY7RxGCnfVA5CBSIqUNLooYRgEAVlVQAoAlR6NHTqMSyaHE5J aWRzIFsgNSAwIFIgNyAwIFIgOSAwIFIgMTEgMCBSID EfIBWxVzReBYZaOHKwNUjqRQRTCYG6PRBrIjVhLQXtFWQrGdVxVTIBOBT0BLOcMlCqJYzfCQ9Mo9WlvZ VmOW9OVb0ZNkXuGR7hzs3ULJWqGTYdNdgUFof4TWdeCZ1OyLGpmQL5QEAfBCZVBgTjL2qmn1XlMDIcCB MGIIyvHX1Ic6JadBCjCBd+Ed9OXG3xi5LdZOd5RGNk FA8sfz6YBZqGDqSbF3NssXvnUKXsb6EoQGItBGIOvL2xZFT0AVM7WDb0e8YewwONSFvdfwFnHJ6cNZOC NIZ3HBzuJQwwQcChQZMaYElqKIMTNOxINtNoP2Zua6TwZzO6YADfObHzGGqkRWZaWmE2OW89tMrbKU4Z YFJuRLQsRT90SIIiCAMtMh8KZv4BGsLmFZ1alt7IIM SmKOEiMfvWTmz2AOscDC2YcMShQ6QfcCEht6gKWsEcU8BMSOMrLVCmKr1DQJGrMkPvCDZmYCumYY9kLJ JjJTLWgYpeviS7WG2SRW4tphOjFC9RZnOdMh9aEy6LXiFwE5KnE0FuZJUiBKXNWXoyOA6XGZidCT0oQK 2Tc7OMkYBlnR5xkn3LFATuUEToSjhtia7YXacgP2S0 mSxpBUVaSNVvFTWNYPkaZR2CBAIbCDJ2BKY8KtDxSUDFSjCfV84aKF6GP2Jjz48gUhX6PWPwSxWfCCxv ES49yBrxgzWinDZoxOuoXO6YSg6+NDcdxeGtNtrCYfevFAJUOeDpMOOUIoFyOIVjHNYhZBDsOiP3AhKa Um0TVBZjIHZjSRBsVoTtTONzAKCiPSiqJTHwVSJgMF caJEZlDHGkSN4RWxVgLRSpNaM4TpOiPPZzPMDdrv7MEQQfWVNwFPA4UhKlUYSzSSJnYElfCMXmDAMjIm IbGWEeLZQcVD2MVdPfHVYlVXY2YeNzJVLeQVQexp9NDNAhGWEkMAEyEYOtFZHtKJToHXkyGMYcVUG0Xq G4TCUbNDHiQS2ERrVgARRvQXN8IQMtCMQpAGKxuj8M CRZoVJDcWOH7XLKdHPYkLGBmZOhpEBGkLSFiSYY9TIUoAPBpHZ4JYiGnCHAkNZJ1UuQyHQKvFNRzpl4S ORIrRVDqUgQ3WePyOZCgWGQoRKjeYVMwJLT8KnRkDWQoHPDpTA2JLiWtNIIsMqD1EWFcVYUnYSAlam5E HDPcCDYdEDq7DiDmZDVoCNRyHBhdNAHcYRS3OJQ0LL QrCYLhQR4HWqWxTEWgBsAvEVTlWAIoYZOnzv1SHHIrZSBaTpwjQjHkVGYzGEWhHWcuUHLhEWU7OVV4AO PyOCJqSV8YBwHzVCEiIsgeCKFqQCOeRJCewe7KNACiTTXjFGKzQtJgPGSdCNDhAYkqPGWmMRIvRCK5FZ FkTHEqSY5TTzKmLMXeTwIoGECdVDFyBRMbpy3OMYHi RNXpSSPqPeAzTZMjAACoAPamSEKmRAZ0QfVjMCVkQLGhQL7OWlLlYYMzQrWyJWZkBOWzGWZsva8YQSMo FFDbFgH0GLOsBBYcDTDmTLgrOENkIRM6ClqtNYAzLGDpOX2AStJdKYHcIlr1ZvZtPFAdKWNanj1UQBYb ZXObJwqlWWAfFYUmISFpXFauHOIdXOE2GPWhCQJuES WzJR1FKgPwSDTtGtd7LZRsUAGvWQHwxw2EGZAdWAUmHJR3TdKsEMWiGJAnJWnjBAXmIBC7TwnfEURyLI CnFW1EOtQsNAAbZASpSyYoAZPcNQJuhs5XZPCnEWG4UBWjKJFxIDYcBXOdIQemWEAzKFMrTgJqAHMfXW KfRF8KDnTnFJVdPYCvCnBaMRWfLKXlwp6VPTMcGXF9 EeK6CjXiQHJbWYYnIPhkLTFrXWHkKvNeXOZmVJKmNR7SOdSiBERhUDR6OIUfMNWxRZFxiw4ABMJlFMS7 Cet0TrSbWPLjTJMhFPbtMPBcKKP0LLRxRLHrQNRbWW6BSqZiWTCcQFrfEAqtXUSbAPCdsq9BDVIeSSC9 FPL8UZHaOYYgWYOrWVmgEODaWQI1TnLyDVPiTYIyPF 6RYlVnYGDvHNu8MYooQXJxGYYikg3OSAEeFWO5BHjiRjAsUMIrXYSvTWkcLMKkECJ6PTbxSHMzYUTwQO 8TQuPzYSXrQuPnDaupYIYiISJrpj1CNTZlGYX0IHHtEcWzUGApVWIcRTreCHUxHUDgYKCdHFFxQRHiKM 2ZUeXhJJUoPeOnWHIbUOGxIGUesv9DNXHcGAT2NjD7 VGRbVUPfHFYxTSh4mrMadZGhFTq2BI3PD6EbokSjODAWNs1Sp934KFU3TCVgBy2UE6srYo0sELCbLPUB Al5GAWo7IMFvXUE2X8CgBmApGwn1YdN7PpBuS1L7GOd3ZzD5VQJ+SMi2PjGbCJr0ZcL0NZZqClxtMXi7 MSA8ZAsmUIziVtOhZh5bXDUFJt3+NPjnbWPnkPasHCZZDsDvEBU4UBhlAUDLYw9Z ID Date Data Source [id number] 02/16/2020 07:20:24 AM EDT [facility] Name Value Range Interpretation Code Description Data Grace rce(s) Supporting Document(s) Leukocytes [#/volume] in Blood by Automated count 8.4 10*3/uL 4-10 [facility] Erythrocytes [#/volume] in Blood by Automated count 3.91 10*6/uL 4.1- 5.3 L [facility] Hemoglobin [Mass/volume] in Blood 10.5 g/dL 11.5-15.5 L [facility] Hematocrit [Volume Fraction] of Blood by Automated count 33.2 % 3 6-45 L [facility] Erythrocyte mean corpuscular volume [Entitic volume] by Auto mated count 84.8 fL 80-96 [facility] Erythrocyte mean corpuscular hemoglobin [Entitic mass] by Automated count 26.7 pg 27-33 L [facility] Erythrocyte mean corpuscular hemoglobin concentration [Mass/volume] by Automated count 31.5 g/dL 32.0-36.0 [facility] width [Ratio] by Automated count 15.8 % 11.5-14.5 H [facility] Platelets [#/volume] in Blood by Automated count 373 10*3/uL 150-400 [facility] Differential cell count method - Blood [facility] Neutrophils/100 leukocytes in Blood by Automated count 67 % [facility] Lymphocytes/100 leukocytes in Blood by Automated count 15 % [facility] Monocytes/100 leukocytes in Blood by Automated count 11 % [facility] Eosinophils/100 leukocytes in Blood by Automated count 6 % [facility] Basophils/100 leukocytes in Blood by Automated count 1 % [facility] Neutrophils [#/volume] in Blood by Automated count 5.74 10*3/uL 1.8-7 .0 [facility] Lymphocytes [#/volume] in Blood by Automated count 1.23 10*3/uL 1.2-4 .0 [facility] Monocytes [#/volume] in Blood by Automated count 0.94 10*3/uL 0-0.8 H [facility] Eosinophils [#/volume] in Blood by Automated count 0.46 10*3/uL 0-0.5 [facility] Basophils [#/volume] in Blood by Automated count 0.08 10*3/uL 0-0.2 [facility] Nucleated erythrocytes/100 leukocytes [Ratio] in Blood by Automated count 0 /100{WBCs} 0-0 [facility] ID Date Data Source [id number] 02/16/2020 09:25:22 AM EDT [facility] Name Value Range Interpretation Code Description Data Grace rce(s) Supporting Document(s) Magnesium [Mass/volume] in Serum or Plasma 1.7 mg/dL 1.6-2.4 [facility] ID Date Data Source [id number] 02/13/2020 06:36:24 AM [facility] Name Value Range Interpretation Code Description Data Grace rce(s) Supporting Document(s) Leukocytes [#/volume] in Blood by Automated count 9.5 10*3/uL 4-10 [facility] Erythrocytes [#/volume] in Blood by Automated count 3.79 10*6/uL 4.1- 5.3 L [facility] Hemoglobin [Mass/volume] in Blood 10.4 g/dL 11.5-15.5 L [facility] Hematocrit [Volume Fraction] of Blood by Automated count 31.7 % 3 6-45 L [facility] Erythrocyte mean corpuscular volume [Entitic volume] by Auto mated count 83.6 fL 80-96 [facility] Erythrocyte mean corpuscular hemoglobin [Entitic mass] by Automated count 27.4 pg 27-33 [facility] Erythrocyte mean corpuscular hemoglobin concentration [Mass/volume] by Automated count 32.8 g/dL 32.0-36.0 [facility] distribution width [Ratio] by Automated count 16.0 % 11.5-14.5 H [facility] Platelets [#/volume] in Blood by Automated count 374 10*3/uL 150-400 [facility] Differential cell count method - Blood [facility] Neutrophils/100 leukocytes in Blood by Automated count 64 % [facility] Lymphocytes/100 leukocytes in Blood by Automated count 21 % [facility] Monocytes/100 leukocytes in Blood by Automated count 10 % [facility] Eosinophils/100 leukocytes in Blood by Automated count 4 % [facility] Basophils/100 leukocytes in Blood by Automated count 1 % [facility] Neutrophils [#/volume] in Blood by Automated count 6.18 10*3/uL 1.8-7 .0 [facility] Lymphocytes [#/volume] in Blood by Automated count 1.95 10*3/uL 1.2-4 .0 [facility] Monocytes [#/volume] in Blood by Automated count 0.91 10*3/uL 0-0.8 H [facility] Eosinophils [#/volume] in Blood by Automated count 0.34 10*3/uL 0-0.5 [facility] Basophils [#/volume] in Blood by Automated count 0.10 10*3/uL 0-0.2 [facility] Nucleated erythrocytes/100 leukocytes [Ratio] in Blood by Automated count 0 /100{WBCs} 0-0 [facility] ID Date Data Source [id number] 02/13/2020 07:04:39 AM [facility] Name Value Range Interpretation Code Description Data Grace rce(s) Supporting Document(s) Magnesium [Mass/volume] in Serum or Plasma 1.8 mg/dL 1.6-2.4 [facility] ID Date Data Source [id number] 02/13/2020 12:59:31 PM [facility] Name Value Range Interpretation Code Description Data Grace rce(s) Supporting Document(s) Bicarbonate [Moles/volume] in Serum 24 mmol/L 22- [facility] Chloride [Moles/volume] in Serum or Plasma 97 mmol/L 98-107 [facility] Creatinine [Mass/volume] in Serum or Plasma 0.46 mg/dL 0.50-0.90 [facility] Glucose [Mass/volume] in Serum or Plasma 94 mg/dL 70-140 [facility] Potassium [Moles/volume] in Serum or Plasma 4.3 mmol/L 3.4-5.1 [facility] Sodium [Moles/volume] in Serum or Plasma 136 mmol/L 136-145 [facility] Urea nitrogen [Mass/volume] in Serum or Plasma 12 mg/dL 8- [facility] Anion gap 3 in Serum or Plasma 15 mmol/L 8-15 [facility] Osmolality of Serum or Plasma by calculation 282 mosm/kg 275-300 [facility] Creatinine/Urea nitrogen [Mass Ratio] in Serum or Plasma 26 [facility] Calcium [Mass/volume] in Serum or Plasma 8.3 mg/dL 8.8-10.2 L [facility] Glomerular filtration rate/1.73 sq M pre dicted among non-blacks [Volume Rate/Area] in Serum or Plasma by Creatinine-based formula (MDRD) >6 0 [facility] Glomerular filtration rate/1.73 sq M pre dicted among blacks [Volume Rate/Area] in Serum or Plasma by Creatinine-based formula (MDRD) >60 [facility] ID Date Data Source [id number] 02/11/2020 03:57:16 PM EDT [facility] XR ABDOMEN AP ABD SUPINE ONLY [id number] RESULTInterpreted by:FANY FontanezROCEDURE INFORMATION: Exam: XR Abdomen, 1 View Exam date and time: 02/11/2020 3:48 PM Age: 64 years old Clinical indication: Other: Assess stool burden TECHNIQUE: Imaging protocol: XR of the abdomen. Views: Frontal supine view of the abdomen. 1 View. COMPARISON: DX XR ABDOMEN AP ABD SUPINE ONLY [id number] PORTABLE 01/21/2020 11:20 AM FINDINGS: Tubes, catheters [...] rce(s) Supporting Document(s) ID Date Data Source [id number] 02/09/2020 05:48:34 AM T [facility] Name Value Range Interpretation Code Description Data Grace rce(s) Supporting Document(s) Leukocytes [#/volume] in Blood by Automated count 10.2 10*3/uL 4-10 H [facility] Erythrocytes [#/volume] in Blood by Automated count 3.65 10*6/uL 4.1- 5.3 L [facility] Hemoglobin [Mass/volume] in Blood 10.0 g/dL 11.5-15.5 L [facility] Hematocrit [Volume Fraction] of Blood by Automated count 31.3 % 3 6-45 L [facility] Erythrocyte mean corpuscular volume [Entitic volume] by Auto mated count 85.6 fL 80-96 [facility] Erythrocyte mean corpuscular hemoglobin [Entitic mass] by Automated count 27.5 pg 27-33 [facility] Erythrocyte mean corpuscular hemoglobin concentration [Mass/volume] by Automated count 32.1 g/dL 32.0-36.0 [facility] distribution width [Ratio] by Automated count 16.0 % 11.5-14.5 H [facility] Platelets [#/volume] in Blood by Automated count 395 10*3/uL 150-400 [facility] Differential cell count method - Blood [facility] Neutrophils/100 leukocytes in Blood by Automated count 67 % [facility] Lymphocytes/100 leukocytes in Blood by Automated count 17 % [facility] Monocytes/100 leukocytes in Blood by Automated count 11 % [facility] Eosinophils/100 leukocytes in Blood by Automated count 4 % [facility] Basophils/100 leukocytes in Blood by Automated count 1 % [facility] Neutrophils [#/volume] in Blood by Automated count 6.86 10*3/uL 1.8-7 .0 [facility] Lymphocytes [#/volume] in Blood by Automated count 1.72 10*3/uL 1.2-4 .0 [facility] Monocytes [#/volume] in Blood by Automated count 1.07 10*3/uL 0-0.8 H [facility] Eosinophils [#/volume] in Blood by Automated count 0.42 10*3/uL 0-0.5 [facility] Basophils [#/volume] in Blood by Automated count 0.11 10*3/uL 0-0.2 [facility] Nucleated erythrocytes/100 leukocytes [Ratio] in Blood by Automated count 0 /100{WBCs} 0-0 [facility] ID Date Data Source [id number] 02/09/2020 06:13:20 AM [facility] Value Range Interpretation Code Description Data Grace rce(s) Supporting Document(s) Magnesium [Mass/volume] in Serum or Plasma 2.1 mg/dL 1.6-2.4 [facility] ID Date Data Source [id number] 02/09/2020 09:55:35 AM EDT [facility] Name Value Range Interpretation Code Description Data Grace rce(s) Supporting Document(s) Bicarbonate [Moles/volume] in Serum 26 mmol/L 22-29 [facility] Chloride [Moles/volume] in Serum or Plasma 97 mmol/L 98-107 L [facility] Creatinine [Mass/volume] in Serum or Plasma 0.40 mg/dL 0.50-0.90 L [facility] Glucose [Mass/volume] in Serum or Plasma 111 mg/dL 70-140 [facility] Potassium [Moles/volume] in Serum or Plasma 4.3 mmol/L 3.4-5.1 [facility] Sodium [Moles/volume] in Serum or Plasma 138 mmol/L 136-145 [facility] Urea nitrogen [Mass/volume] in Serum or Plasma 16 mg/dL 8-23 [facility] Anion gap 3 in Serum or Plasma 15 mmol/L 8-15 [facility] Osmolality of Serum or Plasma by calculation 288 mosm/kg 275-300 [facility] Creatinine/Urea nitrogen [Mass Ratio] in Serum or Plasma 40 [facility] Calcium [Mass/volume] in Serum or Plasma 8.4 mg/dL 8.8-10.2 L [facility] Glomerular filtration rate/1.73 sq M pre dicted among non-blacks [Volume Rate/Area] in Serum or Plasma by Creatinine-based formula (MDRD) >6 0 [facility] Glomerular filtration rate/1.73 sq M pre dicted among blacks [Volume Rate/Area] in Serum or Plasma by Creatinine-based formula (MDRD) >60 [facility] ID Date Data Source [id number] 02/06/2020 07:14:59 AM [facility] Name Value Range Interpretation Code Description Data Grace rce(s) Supporting Document(s) Leukocytes [#/volume] in Blood by Automated count 11.2 10*3/uL 4-10 H [facility] Erythrocytes [#/volume] in Blood by Automated count 3.56 10*6/uL 4.1- 5.3 L [facility] Hemoglobin [Mass/volume] in Blood 10.0 g/dL 11.5-15.5 [facility] Hematocrit [Volume Fraction] of Blood by Automated count 30.2 % 3 6-45 L [facility] Erythrocyte mean corpuscular volume [Entitic volume] by Auto mated count 84.8 fL 80-96 [facility] Erythrocyte mean corpuscular hemoglobin [Entitic mass] by Automated count 28.2 pg 27-33 [facility] Erythrocyte mean corpuscular hemoglobin concentration [Mass/volume] by Automated count 33.3 g/dL 32.0-36.0 [facility] distribution width [Ratio] by Automated count 15.7 % 11.5-14.5 H [facility] Platelets [#/volume] in Blood by Automated count 385 10*3/uL 150-400 [facility] Differential cell count method - Blood [facility] Neutrophils/100 leukocytes in Blood by Automated count 63 % [facility] Lymphocytes/100 leukocytes in Blood by Automated count 21 % [facility] Monocytes/100 leukocytes in Blood by Automated count 11 % [facility] Eosinophils/100 leukocytes in Blood by Automated count 4 % [facility] Basophils/100 leukocytes in Blood by Automated count 1 % [facility] Neutrophils [#/volume] in Blood by Automated count 7.07 10*3/uL 1.8-7 .0 H [facility] Lymphocytes [#/volume] in Blood by Automated count 2.32 10*3/uL 1.2-4 .0 [facility] Monocytes [#/volume] in Blood by Automated count 1.27 10*3/uL 0-0.8 H [facility] Eosinophils [#/volume] in Blood by Automated count 0.41 10*3/uL 0-0.5 [facility] Basophils [#/volume] in Blood by Automated count 0.13 10*3/uL 0-0.2 [facility] Nucleated erythrocytes/100 leukocytes [Ratio] in Blood by Automated count 0 /100{WBCs} 0-0 [facility] ID Date Data Source [id number] 02/06/2020 07:56:56 AM [facility] Name Value Range Interpretation Code Description Data Grace rce(s) Supporting Document(s) Magnesium [Mass/volume] in Serum or Plasma 2.0 mg/dL 1.6-2.4 [facility] ID Date Data Source [id number] 02/06/2020 08:44:36 AM [facility] Name Value Range Interpretation Code Description Data Grace rce(s) Supporting Document(s) Bicarbonate [Moles/volume] in Serum 30 mmol/L 22-29 H [facility] Chloride [Moles/volume] in Serum or Plasma 97 mmol/L 98-107 L [facility] Creatinine [Mass/volume] in Serum or Plasma 0.44 mg/dL 0.50-0.90 L [facility] Glucose [Mass/volume] in Serum or Plasma 90 mg/dL 70-140 [facility] Potassium [Moles/volume] in Serum or Plasma 4.2 mmol/L 3.4-5.1 [facility] Sodium [Moles/volume] in Serum or Plasma 138 mmol/L 136-145 [facility] Urea nitrogen [Mass/volume] in Serum or Plasma 17 mg/dL 8-23 [facility] Anion gap 3 in Serum or Plasma 11 mmol/L 8-15 [facility] Osmolality of Serum or Plasma by calculation 287 mosm/kg 275-300 [facility] Creatinine/Urea nitrogen [Mass Ratio] in Serum or Plasma 39 [facility] Calcium [Mass/volume] in Serum or Plasma 8.6 mg/dL 8.8-10.2 L [facility] Glomerular filtration rate/1.73 sq M pre dicted among non-blacks [Volume Rate/Area] in Serum or Plasma by Creatinine-based formula (MDRD) >6 0 [facility] Glomerular filtration rate/1.73 sq M pre dicted among blacks [Volume Rate/Area] in Serum or Plasma by Creatinine-based formula (MDRD) >60 [facility] ID Date Data Source [id number] 02/02/2020 07:06:20 AM EDT [facility] Name Value Range Interpretation Code Description Data Grace rce(s) Supporting Document(s) Leukocytes [#/volume] in Blood by Automated count 9.6 10*3/uL 4-10 [facility] Erythrocytes [#/volume] in Blood by Automated count 3.62 10*6/uL 4.1- 5.3 [facility] Hemoglobin [Mass/volume] in Blood 10.1 g/dL 11.5-15.5 [facility] Hematocrit [Volume Fraction] of Blood by Automated count 30.5 % 3 6-45 L [facility] Erythrocyte mean corpuscular volume [Entitic volume] by Auto mated count 84.2 fL 80-96 [facility] Erythrocyte mean corpuscular hemoglobin [Entitic mass] by Automated count 28.0 pg 27-33 [facility] Erythrocyte mean corpuscular hemoglobin concentration [Mass/volume] by Automated count 33.3 g/dL 32.0-36.0 [facility] distribution width [Ratio] by Automated count 15.7 % 11.5-14.5 H [facility] Platelets [#/volume] in Blood by Automated count 370 10*3/uL 150-400 [facility] Differential cell count method - Blood [facility] Neutrophils/100 leukocytes in Blood by Automated count 61 % [facility] Lymphocytes/100 leukocytes in Blood by Automated count 24 % [facility] Monocytes/100 leukocytes in Blood by Automated count 10 % [facility] Eosinophils/100 leukocytes in Blood by Automated count 4 % [facility] Basophils/100 leukocytes in Blood by Automated count 1 % [facility] Neutrophils [#/volume] in Blood by Automated count 5.83 10*3/uL 1.8-7 .0 [facility] Lymphocytes [#/volume] in Blood by Automated count 2.36 10*3/uL 1.2-4 .0 [facility] Monocytes [#/volume] in Blood by Automated count 0.97 10*3/uL 0-0.8 H [facility] Eosinophils [#/volume] in Blood by Automated count 0.40 10*3/uL 0-0.5 [facility] Basophils [#/volume] in Blood by Automated count 0.08 10*3/uL 0-0.2 [facility] Nucleated erythrocytes/100 leukocytes [Ratio] in Blood by Automated count 0 /100{WBCs} 0-0 [facility] ID Date Data Source [id number] 02/02/2020 07:16:31 AM T [facility] Name Value Range Interpretation Code Description Data Grace rce(s) Supporting Document(s) Bicarbonate [Moles/volume] in Serum 32 mmol/L 22-29 H [facility] Chloride [Moles/volume] in Serum or Plasma 99 mmol/L 98-107 [facility] Creatinine [Mass/volume] in Serum or Plasma 0.34 mg/dL 0.50-0.90 L [facility] Glucose [Mass/volume] in Serum or Plasma 101 mg/dL 70-140 [facility] Potassium [Moles/volume] in Serum or Plasma 4.0 mmol/L 3.4-5.1 [facility] Sodium [Moles/volume] in Serum or Plasma 140 mmol/L 136-145 [facility] Urea nitrogen [Mass/volume] in Serum or Plasma 16 mg/dL 8-23 [facility] Anion gap 3 in Serum or Plasma 9 mmol/L 8-15 [facility] Osmolality of Serum or Plasma by calculation 291 mosm/kg 275-300 [facility] Creatinine/Urea nitrogen [Mass Ratio] in Serum or Plasma 47 [facility] Calcium [Mass/volume] in Serum or Plasma 8.6 mg/dL 8.8-10.2 L [facility] Glomerular filtration rate/1.73 sq M pre dicted among non-blacks [Volume Rate/Area] in Serum or Plasma by Creatinine-based formula (MDRD) >6 0 [facility] Glomerular filtration rate/1.73 sq M pre dicted among blacks [Volume Rate/Area] in Serum or Plasma by Creatinine-based formula (MDRD) >60 [facility] ID Date Data Source [id number] 02/02/2020 07:16:31 AM [facility] Name Value Range Interpretation Code Description Data Grace rce(s) Supporting Document(s) Magnesium [Mass/volume] in Serum or Plasma 1.9 mg/dL 1.6-2.4 [facility] ID Date Data Source [id number] 02/01/2020 01:55:56 PM T [facility] XR THORACIC SPINE AP AND LATERALFINAL [...] Date Data Source [id number] 01/30/2020 07:01:51 AM [facility] Name Value Range Interpretation Code Description Data Grace rce(s) Supporting Document(s) Leukocytes [#/volume] in Blood by Automated count 9.8 10*3/uL 4-10 [facility] Erythrocytes [#/volume] in Blood by Automated count 3.61 10*6/uL 4.1- 5.3 L [facility] Hemoglobin [Mass/volume] in Blood 10.0 g/dL 11.5-15.5 L [facility] Hematocrit [Volume Fraction] of Blood by Automated count 30.4 % 3 6-45 L [facility] Erythrocyte mean corpuscular volume [Entitic volume] by Auto mated count 84.2 fL 80-96 [facility] Erythrocyte mean corpuscular hemoglobin [Entitic mass] by Automated count 27.6 pg 27-33 [facility] Erythrocyte mean corpuscular hemoglobin concentration [Mass/volume] by Automated count 32.8 g/dL 32.0-36.0 [facility] distribution width [Ratio] by Automated count 15.7 % 11.5-14.5 H [facility] Platelets [#/volume] in Blood by Automated count 376 10*3/uL 150-400 [facility] Differential cell count method - Blood [facility] Neutrophils/100 leukocytes in Blood by Automated count 68 % [facility] Lymphocytes/100 leukocytes in Blood by Automated count 18 % [facility] Monocytes/100 leukocytes in Blood by Automated count 9 % [facility] Eosinophils/100 leukocytes in Blood by Automated count 4 % [facility] Basophils/100 leukocytes in Blood by Automated count 1 % [facility] Neutrophils [#/volume] in Blood by Automated count 6.67 10*3/uL 1.8-7 .0 [facility] Lymphocytes [#/volume] in Blood by Automated count 1.80 10*3/uL 1.2-4 .0 [facility] Monocytes [#/volume] in Blood by Automated count 0.90 10*3/uL 0-0.8 H [facility] Eosinophils [#/volume] in Blood by Automated count 0.35 10*3/uL 0-0.5 [facility] Basophils [#/volume] in Blood by Automated count 0.10 10*3/uL 0-0.2 [facility] Nucleated erythrocytes/100 leukocytes [Ratio] in Blood by Automated count 0 /100{WBCs} 0-0 [facility] ID Date Data Source [id number] 01/30/2020 07:19:[address] [facility] Name Value Range Interpretation Code Description Data Grace rce(s) Supporting Document(s) Bicarbonate [Moles/volume] in Serum 33 mmol/L 22-29 H [facility] Chloride [Moles/volume] in Serum or Plasma 98 mmol/L 98-107 [facility] Creatinine [Mass/volume] in Serum or Plasma 0.42 mg/dL 0.50-0.90 L [facility] Glucose [Mass/volume] in Serum or Plasma 112 mg/dL 70-140 [facility] Potassium [Moles/volume] in Serum or Plasma 4.0 mmol/L 3.4-5.1 [facility] Sodium [Moles/volume] in Serum or Plasma 139 mmol/L 136-145 [facility] Urea nitrogen [Mass/volume] in Serum or Plasma 20 mg/dL 8-23 [facility] Anion gap 3 in Serum or Plasma 8 mmol/L 8-15 [facility] Osmolality of Serum or Plasma by calculation 291 mosm/kg 275-300 [facility] Creatinine/Urea nitrogen [Mass Ratio] in Serum or Plasma 48 [facility] Calcium [Mass/volume] in Serum or Plasma 8.5 mg/dL 8.8-10.2 L [facility] Glomerular filtration rate/1.73 sq M pre dicted among non-blacks [Volume Rate/Area] in Serum or Plasma by Creatinine-based formula (MDRD) >6 0 [facility] Glomerular filtration rate/1.73 sq M pre dicted among blacks [Volume Rate/Area] in Serum or Plasma by Creatinine-based formula (MDRD) >60 [facility] ID Date Data Source [id number] 01/25/2020 07:02:[address] [facility] Name Value Range Interpretation Code Description Data Grace rce(s) Supporting Document(s) Leukocytes [#/volume] in Blood by Automated count 9.8 10*3/uL 4-10 [facility] Erythrocytes [#/volume] in Blood by Automated count 3.46 10*6/uL 4.1- 5.3 [facility] Hemoglobin [Mass/volume] in Blood 9.7 g/dL 11.5-15.5 [facility] Hematocrit [Volume Fraction] of Blood by Automated count 29.3 % 3 6-45 L [facility] Erythrocyte mean corpuscular volume [Entitic volume] by Auto mated count 84.6 fL 80-96 [facility] Erythrocyte mean corpuscular hemoglobin [Entitic mass] by Automated count 27.9 pg 27-33 [facility] Erythrocyte mean corpuscular hemoglobin concentration [Mass/volume] by Automated count 33.0 g/dL 32.0-36.0 [facility] E[facility]th[facility] distribution width [Ratio] by Automated count 15.5 % 11.5-14.5 H [facility] Platelets [#/volume] in Blood by Automated count 358 10*3/uL 150-400 [facility] Differential cell count method - Blood [facility] Neutrophils/100 leukocytes in Blood by Automated count 62 % [facility] Lymphocytes/100 leukocytes in Blood by Automated count 21 % [facility] Monocytes/100 leukocytes in Blood by Automated count 11 % [facility] Eosinophils/100 leukocytes in Blood by Automated count 5 % [facility] Basophils/100 leukocytes in Blood by Automated count 1 % [facility] Neutrophils [#/volume] in Blood by Automated count 5.99 10*3/uL 1.8-7 .0 [facility] Lymphocytes [#/volume] in Blood by Automated count 2.06 10*3/uL 1.2-4 .0 [facility] Monocytes [#/volume] in Blood by Automated count 1.10 10*3/uL 0-0.8 H [facility] Eosinophils [#/volume] in Blood by Automated count 0.51 10*3/uL 0-0.5 H [facility] Basophils [#/volume] in Blood by Automated count 0.11 10*3/uL 0-0.2 [facility] Nucleated erythrocytes/100 leukocytes [Ratio] in Blood by Automated count 0 /100{WBCs} 0-0 [facility] ID Date Data Source [id number] 01/24/2020 12:17:58 PM T [facility] Name Value Range Interpretation Code Description Data Grace rce(s) Supporting Document(s) Bicarbonate [Moles/volume] in Serum 32 mmol/L 22-29 H [facility] Chloride [Moles/volume] in Serum or Plasma 94 mmol/L 98-107 L [facility] Creatinine [Mass/volume] in Serum or Plasma 0.39 mg/dL 0.50-0.90 L [facility] Glucose [Mass/volume] in Serum or Plasma 126 mg/dL 70-140 [facility] Potassium [Moles/volume] in Serum or Plasma 4.1 mmol/L 3.4-5.1 [facility] Sodium [Moles/volume] in Serum or Plasma 136 mmol/L 136-145 [facility] Urea nitrogen [Mass/volume] in Serum or Plasma 18 mg/dL 8-23 [facility] Anion gap 3 in Serum or Plasma 10 mmol/L 8-15 [facility] Osmolality of Serum or Plasma by calculation 285 mosm/kg 275-300 [facility] Creatinine/Urea nitrogen [Mass Ratio] in Serum or Plasma 47 [facility] Calcium [Mass/volume] in Serum or Plasma 8.5 mg/dL 8.8-10.2 L [facility] Glomerular filtration rate/1.73 sq M pre dicted among non-blacks [Volume Rate/Area] in Serum or Plasma by Creatinine-based formula (MDRD) >6 0 [facility] Glomerular filtration rate/1.73 sq M pre dicted among blacks [Volume Rate/Area] in Serum or Plasma by Creatinine-based formula (MDRD) >60 [facility] ID Date Data Source [id number] 01/24/2020 12:21:45 PM EDT [facility] Name Value Range Interpretation Code Description Data Grace rce(s) Supporting Document(s) Leukocytes [#/volume] in Blood by Automated count 12.1 10*3/uL 4-10 H [facility] Erythrocytes [#/volume] in Blood by Automated count 3.52 10*6/uL 4.1- 5.3 L [facility] Hemoglobin [Mass/volume] in Blood 9.9 g/dL 11.5-15.5 [facility] Hematocrit [Volume Fraction] of Blood by Automated count 29.7 % 3 6-45 L [facility] Erythrocyte mean corpuscular volume [Entitic volume] by Auto mated count 84.4 fL 80-96 [facility] Erythrocyte mean corpuscular hemoglobin [Entitic mass] by Automated count 28.0 pg 27-33 [facility] Erythrocyte mean corpuscular hemoglobin concentration [Mass/volume] by Automated count 33.2 g/dL 32.0-36.0 [facility] Erythrocyte distribution width [Ratio] by Automated count 15.7 % 11.5-14.5 H [facility] Platelets [#/volume] in Blood by Automated count 390 10*3/uL 150-400 [facility] ID Date Data Source [id number] 01/26/2020 08:53:18 AM EDT [facility] Service Cmnt XXX-Imp : NoneMicroorganism XXX Cult : Greater than 100,000 col/mlEscherichia coli Name Value Range Interpretation Code Description Data Grace rce(s) Supporting Document(s) ID Date Data Source [id number] [facility] Value Range Interpretation Code Description Data Grace rce(s) Supporting Document(s) Color of Urine [facility] Clarity of Urine [facility] Specific gravity of Urine by Refractometry automated 1.017 1.003 -1.030 [facility] pH of Urine by Automated test strip 7.0 5.0-8.0 [facility] Protein [Mass/volume] in Urine by Automated test strip Neg [facility] Glucose [Mass/volume] in Urine by Automated test strip Neg [facility] Ketones [Mass/volume] in Urine by Automated test strip Neg [facility] Bilirubin.total [Presence] in Urine by Automated test strip Negative [facility] Hemoglobin [Presence] in Urine by Automated test strip Neg [facility] Leukocyte esterase [Presence] in Urine by Automated test strip Negative [facility] Nitrite [Presence] in Urine by Automated test strip Negati ve [facility] Leukocytes [#/area] in Urine sediment by Automated count 242 /HPF 0 -5 H [facility] Erythrocytes [#/area] in Urine sediment by Automated count 5 /HPF 0-3 H [facility] Bacteria [#/area] in Urine sediment by Automated count Non e [facility] Epithelial cells.squamous [#/area] in Urine sediment by Auto mated count 2 /HPF None [facility] Mucus [#/area] in Urine sediment by Microscopy low power field None [facility] Crystals.amorphous [#/area] in Urine sediment by Microscopy high power field None [facility] ID Date Data Source [id number] [facility]/21[facility]2020 11[facility]57[facility] ABD SUPINE ONLY [id number] RESULTInterpreted by:FANY PatinoROCEDURE INFORMATION: Exam: XR Abdomen, 1 View Exam date and time: 01/21/2020 11:35 AM Age: 64 years old Clinical indication: Other: Evaluate stool burden TECHNIQUE: Imaging protocol: XR of the abdomen. Views: Frontal supine view of the abdomen. 1 View. COMPARISON: CR XR ABDOMEN AP ABD SUPINE ONLY [id number] PORTABLE 01/09/2020 8:06 AM FINDINGS: Tubes, catheters [...] rce(s) Supporting Document(s) ID Date Data Source [id number] 01/19/2020 10:33:21 AM [facility] XR HAND 2 VIEWS [id number] RESULTInterpr eted by:Sarah Dailey DOINDICATION: pain, h/o [...] rce(s) Supporting Document(s) ID Date Data Source [id number] 01/18/2020 10:14:04 PM [facility] Name Value Range Interpretation Code Description Data Grace rce(s) Supporting Document(s) [facility] IALPJx8wCvBOFfNk41/WNRvbKKQlz6JyPFskRVl9JOjvFRQjO7MsAIA0fM1qYHI9CIlWVjPvNrItIEL1 lbm [file] AgICAgICAgICAgICAgICAgICAgICAgICAgICAgICAgICAgICAgICAgICAgICAgICAgICAgICAgICAgIC AgICAgICAgICAgICAgICAgICAgICAgICANCiAgICAgICAgICAgICAgICAgICAgICAgICAgICAgICAgIC AgICAgICAgICAgICAgICAgICAgICAgICAgICAgICAg ICAgICAgICAgICAgICAgICAgICAgICAgICAgICAgICAgICANCiAgICAgICAgICAgICAgICAgICAgICAg ICAgICAgICAgICAgICAgICAgICAgICAgICAgICAgICAgICAgICAgICAgICAgICAgICAgICAgICAgICAg ICAgICAgICAgICAgICAgICANCiAgICAgICAgICAgIC AgICAgICAgICAgICAgICAgICAgICAgICAgICAgICAgICAgICAgICAgICAgICAgICAgICAgICAgICAgIC AgICAgICAgICAgICAgICAgICAgICAgICAgICANCiAgICAgICAgICAgICAgICAgICAgICAgICAgICAgIC AgICAgICAgICAgICAgICAgICAgICAgICAgICAgICAg ICAgICAgICAgICAgICAgICAgICAgICAgICAgICAgICAgICAgICANCiAgICAgICAgICAgICAgICAgICAg ICAgICAgICAgICAgICAgICAgICAgICAgICAgICAgICAgICAgICAgICAgICAgICAgICAgICAgICAgICAg ICAgICAgICAgICAgICAgICAgICANCiAgICAgICAgIC AgICAgICAgICAgICAgICAgICAgICAgICAgICAgICAgICAgICAgICAgICAgICAgICAgICAgICAgICAgIC AgICAgICAgICAgICAgICAgICAgICAgICAgICAgICANCiAgICAgICAgICAgICAgICAgICAgICAgICAgIC AgICAgICAgICAgICAgICAgICAgICAgICAgICAgICAg ICAgICAgICAgICAgICAgICAgICAgICAgICAgICAgICAgICAgICAgICANCiAgICAgICAgICAgICAgICAg ICAgICAgICAgICAgICAgICAgICAgICAgICAgICAgICAgICAgICAgICAgICAgICAgICAgICAgICAgICAg ICAgICAgICAgICAgICAgICAgICAgICANCiAgICAgIC AgICAgICAgICAgICAgICAgICAgICAgICAgICAgICAgICAgICAgICAgICAgICAgICAgICAgICAgICAgIC AgICAgICAgICAgICAgICAgICAgICAgICAgICAgICAgICANCjw/hBHuN2oatYAnpiN9Q2iqBt1MTk9KNY 0kx0QhGDQyQOiojoWaHsvRYhFkCGIoUhiXRwd4FPfd PD8XjYJzS5SgR6EqEUtuEN2LIRDbPIEnfFFzYMQsXSUrYtU5TAZiEXseUX4MlPNlJUhnIGTjUAIsIkKv YEGxCAJdVKDbZZIoZDUNFSPaPYXgAmXrDLMaSSMrAO0TWGOnC458csLpAg7CDd8VNlCfKH1biu3HZvAv XCOuExfNTmz6GIfzOX7ZbVNyaTYrUcBwYVIVNxWnR6 hwj8BuYwZnMKACFAefYZ9Bn7MmpPNfVXr+Hs0EGK8vm5FsZBboUvPmVO8zne7BCNyIAyVxM8CqyLgiMA LipwL0dIVzRUF7TKnezGEQTLSmOE9lFRLPIVXshSB5NkG5PrVgDeEvSPP1FFNzXG6kMNmcQH0WMCL4KU naSGDbXOXdA9dAUySmOGMkKtWsjLuxTM2TIkQoD1Hj cmVudCAzMiAwIFINCj4+RIiedrNhIflORhH3JJDew0PmIGz9TD7XSKTvYSurQL0JPKEahS2aQBmzQE9W IlNoSRWgYZWFZnYpO78slIOzYCo4M4MbDlKuPPJwZeivDYGbANbwQuUpOVQxLnDrOYydVW1+ID4+DQog OQ8KJSemtwMkYBEuSy5CPEWvYTDgUR5nHHMiZNDcN3 V4fWktPLUNEaBeI1rufswdAU3pHIFwY902hLssgoSeHTRyFOZfHx3ZEHPxWSI1JAErlPNwPdAcVHCKGH dwQQ9QfIQzXOG5aJ3vUZtqYGDsVBFaF1pYDvCgaKevOD20pBrakqLloBFcPTm+It7HAR8vc1DmVAr8pk QqJBkqHUL4ZQflVUBnENUxJHGgMPM3GSL8PHYEWzJm TWSsJBAgNGodAQZpUZBtwb5IHIBfXFBlFMrdHELiYTBvBBOoKResPAPxPKF3PoE9PKOvVOObCT8UIoCv VSSvDMXePMgnWAEkGCHcup3EFIEqPZVbBOX6RMLmZZIzIGTqOLzdCJUiOYJ6KrT3MLZbVLOcME8AOeEb DTUmQUD1UEZiNWIxTHIrbz0AOCWdMKBlTiU3AJEcJH GjWUXvKOtxKCRqJTPdWXJhXQOfKBBxKM4ONoJpNGCiIUF3YUucONNuSOLjpc6HCLOrZHDpKyo9RxMxZW RnWEPzKYllMVAqEBH2FZqnZYHvISSbGY7PHjHuFYAbSJJ8MDiyQXMrJRTasn1UIFDoTIXoKxz4DxIuNU ZcJCJgXRfgEUMuZHM3ApgfLUNqNMKwXP0XYtXePGFi JJa8VNOyXRDgEYBeat6ZCJIcAMDwZPT4XiDdBCTpIXVbJDmeCOAiKVW7RpUyMUWpBXYtDU9XRkTuSZQg OMu4QrUuYPYyFGQkqc9KGYPeFZHhPJg6KINfCEOiPDGrGMcbHGMyCRLhZVo9YHJlLQDoGX6LAbKgOCVz SvDwHINiKYXgJZDfvu5LKYSeRYAlTjK7PYXkROFyQX QkIPxbMSYhPKFzIYd6ZOVkTHDhBJ4MFvCjEQVnGnHxVEefKCIsLYIjwc8CSNWdFFJtExYbDdOlBYGzGZ KkFBrdLHSmHSVhJHflKJXwPIKpQX3VBuGiEBIhHmM3ApVzDDMtPNZwnp3XHDYnDMQfEMihZMLaSXVbQT SrYUtyTVNvAOP9NHmzBVQiNYOvKZ8QRbZaMKGzWhWf DJmnZNZqGQCvom1MYSHwXDCpHfq6LDUaJDElEUKwNFroBOJwRJT1BOFfAKZbMZGgPJ0RCjXnTCYrLkT7 BKRwTITtERZwuu5EdDByaKlvto3YZScTFt0HzPwvOOG9KHyjNg2sgXQsNVHlXDDFCt1BilIfKLMhLHBM QVcmYOGdSDihKWR8XxCaHsk5XaT6VaH0OPA7ZXOdNs NpVTGaPBI1RvW9TTL6CeumQTVlUyowTVYgXdDyGOEvBUFfW1BsKXOuIaJ+ID1eXUq+Hm5Ot1DpkyM4he VyRUyrOfYpKV9PFCEMW1WDWw== ID Date Data Source [id number] [facility] Interpret[facility] Code Description Data Grace rce(s) Supporting Document(s) Cyclic citrullinated peptide IgA+IgG Ab [Units/volume] in Serum or Plasma by Immunoassay 187 units 0-20 [facility] Strong PositivePositive and indicates th e presence ofIgG and or IgA CCP3 antibodies andsuggests the possibility of RheumatoidArthritis.(NOTE)These results were obtained with the [employer] CCP3.1 IgG/IgAELISA. Anti-CCP values obtained with different newsperson's assaymethods may not be interchangeable. The magnitude of the reported IgGor IgA levels cannot be correlated to an endpoint titer. ID Date Data Source [id number] [facility]2020 [facility]:23[facility] Interpretation Code Description Data Grace rce(s) Supporting Document(s) Nuclear Ab Pattern Homogenous [Titer] in Serum <80 [facility] Nuclear Ab pattern.speckled [Titer] in Serum <80 [facility] Nuclear Ab pattern.rim [Titer] in Serum <80 [facility] Nuclear Ab pattern.nucleolar [Titer] in Serum <80 [facility] ID Date Data Source [id number] 01/18/2020 03:06:37 PM [facility] Value Range Interpretation Code Description Data Grace rce(s) Supporting Document(s) Creatine kinase [Enzymatic activity/volume] in Serum or Plasma 17 U /L 20-180 L [facility] ID Date Data Source [id number] 01/18/2020 03:06:37 PM [facility] Value Range Interpretation Code Description Data Grace rce(s) Supporting Document(s) C reactive protein [Mass/volume] in Serum or Plasma 30.7 mg/L <8.0 H [facility] ID Date Data Source [id number] 01/18/2020 03:06:37 PM [facility] Value Range Interpretation Code Description Data Grace rce(s) Supporting Document(s) Rheumatoid factor [Units/volume] in Serum or Plasma 49 IU/ml <14 H [facility] ID Date Data Source [id number] 01/18/2020 03:06:37 PM [facility] Value Range Interpretation Code Description Data Grace rce(s) Supporting Document(s) Urate [Mass/volume] in Serum or Plasma 3.3 mg/dl 2.4-5.7 [facility] ID Date Data Source [id number] 01/18/2020 02:39:46 PM [facility] Value Range Interpretation Code Description Data Grace rce(s) Supporting Document(s) Erythrocyte sedimentation rate 45 mm/hr <30 H [facility] ID Date Data Source [id number] 01/17/2020 08:04:14 AM [facility] Value Range Interpretation Code Description Data Grace rce(s) Supporting Document(s) Glucose [Mass/volume] in Capillary blood by Glucometer 186 mg/dL 70- 140 H [facility] ID Date Data Source [id number] 01/12/2020 07:17:52 AM [facility] Value Range Interpretation Code Description Data Grace rce(s) Supporting Document(s) Leukocytes [#/volume] in Blood by Automated count 8.1 10*3/uL 4-10 [facility] Erythrocytes [#/volume] in Blood by Automated count 3.48 10*6/uL 4.1- 5.3 [facility] Hemoglobin [Mass/volume] in Blood 9.7 g/dL 11.5-15.5 [facility] Hematocrit [Volume Fraction] of Blood by Automated count 29.8 % 3 6-45 L [facility] Erythrocyte mean corpuscular volume [Entitic volume] by Auto mated count 85.6 fL 80-96 [facility] Erythrocyte mean corpuscular hemoglobin [Entitic mass] by Automated count 27.7 pg 27-33 [facility] Erythrocyte mean corpuscular hemoglobin concentration [Mass/volume] by Automated count 32.4 g/dL 32.0-36.0 [facility] distribution width [Ratio] by Automated count 15.6 % 11.5-14.5 H [facility] Platelets [#/volume] in Blood by Automated count 373 10*3/uL 150-400 [facility] Differential cell count method - Blood [facility] Neutrophils/100 leukocytes in Blood by Automated count 59 % [facility] Lymphocytes/100 leukocytes in Blood by Automated count 22 % [facility] Monocytes/100 leukocytes in Blood by Automated count 12 % [facility] Eosinophils/100 leukocytes in Blood by Automated count 6 % [facility] Basophils/100 leukocytes in Blood by Automated count 1 % [facility] Neutrophils [#/volume] in Blood by Automated count 4.84 10*3/uL 1.8-7 .0 [facility] Lymphocytes [#/volume] in Blood by Automated count 1.77 10*3/uL 1.2-4 .0 [facility] Monocytes [#/volume] in Blood by Automated count 0.98 10*3/uL 0-0.8 H [facility] Eosinophils [#/volume] in Blood by Automated count 0.46 10*3/uL 0-0.5 [facility] Basophils [#/volume] in Blood by Automated count 0.10 10*3/uL 0-0.2 [facility] Nucleated erythrocytes/100 leukocytes [Ratio] in Blood by Automated count 0 /100{WBCs} 0-0 [facility] ID Date Data Source [id number] 01/12/2020 07:54:[address] [facility] Name Value Range Interpretation Code Description Data Grace rce(s) Supporting Document(s) Bicarbonate [Moles/volume] in Serum 31 mmol/L 22-29 H [facility] Chloride [Moles/volume] in Serum or Plasma 97 mmol/L 98-107 L [facility] Creatinine [Mass/volume] in Serum or Plasma 0.37 mg/dL 0.50-0.90 L [facility] Glucose [Mass/volume] in Serum or Plasma 90 mg/dL 70-140 [facility] Potassium [Moles/volume] in Serum or Plasma 4.3 mmol/L 3.4-5.1 [facility] Sodium [Moles/volume] in Serum or Plasma 139 mmol/L 136-145 [facility] Urea nitrogen [Mass/volume] in Serum or Plasma 14 mg/dL 8-23 [facility] Anion gap 3 in Serum or Plasma 11 mmol/L 8-15 [facility] Osmolality of Serum or Plasma by calculation 288 mosm/kg 275-300 [facility] Creatinine/Urea nitrogen [Mass Ratio] in Serum or Plasma 38 [facility] Calcium [Mass/volume] in Serum or Plasma 8.7 mg/dL 8.8-10.2 L [facility] Glomerular filtration rate/1.73 sq M pre dicted among non-blacks [Volume Rate/Area] in Serum or Plasma by Creatinine-based formula (MDRD) >6 0 [facility] Glomerular filtration rate/1.73 sq M pre dicted among blacks [Volume Rate/Area] in Serum or Plasma by Creatinine-based formula (MDRD) >60 [facility] ID Date Data Source [id number] 01/10/2020 12:01:35 AM EDT [facility] XR ABDOMEN AP ABD SUPINE ONLY [id number] RESULTInterpreted by:Jaren Gutierrez MDCLINICAL HISTORY: 64-year-old female: [...] rce(s) Supporting Document(s) ID Date Data Source [id number] 01/09/2020 05:47:[address] [facility] Name Value Range Interpretation Code Description Data Grace rce(s) Supporting Document(s) Leukocytes [#/volume] in Blood by Automated count 8.9 10*3/uL 4-10 [facility] Erythrocytes [#/volume] in Blood by Automated count 3.49 10*6/uL 4.1- 5.3 L [facility] Hemoglobin [Mass/volume] in Blood 9.7 g/dL 11.5-15.5 L [facility] Hematocrit [Volume Fraction] of Blood by Automated count 29.9 % 3 6-45 L [facility] Erythrocyte mean corpuscular volume [Entitic volume] by Auto mated count 85.6 fL 80-96 [facility] Erythrocyte mean corpuscular hemoglobin [Entitic mass] by Automated count 27.8 pg 27-33 [facility] Erythrocyte mean corpuscular hemoglobin concentration [Mass/volume] by Automated count 32.5 g/dL 32.0-36.0 [facility] distribution width [Ratio] by Automated count 15.5 % 11.5-14.5 H [facility] Platelets [#/volume] in Blood by Automated count 369 10*3/uL 150-400 [facility] Differential cell count method - Blood [facility] Neutrophils/100 leukocytes in Blood by Automated count 61 % [facility] Lymphocytes/100 leukocytes in Blood by Automated count 21 % [facility] Monocytes/100 leukocytes in Blood by Automated count 12 % [facility] Eosinophils/100 leukocytes in Blood by Automated count 5 % [facility] Basophils/100 leukocytes in Blood by Automated count 1 % [facility] Neutrophils [#/volume] in Blood by Automated count 5.46 10*3/uL 1.8-7 .0 [facility] Lymphocytes [#/volume] in Blood by Automated count 1.84 10*3/uL 1.2-4 .0 [facility] Monocytes [#/volume] in Blood by Automated count 1.02 10*3/uL 0-0.8 H [facility] Eosinophils [#/volume] in Blood by Automated count 0.48 10*3/uL 0-0.5 [facility] Basophils [#/volume] in Blood by Automated count 0.10 10*3/uL 0-0.2 [facility] Nucleated erythrocytes/100 leukocytes [Ratio] in Blood by Automated count 0 /100{WBCs} 0-0 [facility] ID Date Data Source [id number] 01/09/2020 08:06:59 AM [facility] Name Value Range Interpretation Code Description Data Grace rce(s) Supporting Document(s) Bicarbonate [Moles/volume] in Serum 32 mmol/L 22-29 H [facility] Chloride [Moles/volume] in Serum or Plasma 97 mmol/L 98-107 L [facility] Creatinine [Mass/volume] in Serum or Plasma 0.37 mg/dL 0.50-0.90 L [facility] Glucose [Mass/volume] in Serum or Plasma 94 mg/dL 70-140 [facility] Potassium [Moles/volume] in Serum or Plasma 4.1 mmol/L 3.4-5.1 [facility] Hemolyzed Sodium [Moles/volume] in Serum or Plasma 137 mmol/L 136-145 [facility] Urea nitrogen [Mass/volume] in Serum or Plasma 17 mg/dL 8-23 [facility] Anion gap 3 in Serum or Plasma 8 mmol/L 8-15 [facility] Osmolality of Serum or Plasma by calculation 285 mosm/kg 275-300 [facility] Creatinine/Urea nitrogen [Mass Ratio] in Serum or Plasma 46 [facility] Calcium [Mass/volume] in Serum or Plasma 8.8 mg/dL 8.8-10.2 [facility] Glomerular filtration rate/1.73 sq M pre dicted among non-blacks [Volume Rate/Area] in Serum or Plasma by Creatinine-based formula (MDRD) >6 0 [facility] Glomerular filtration rate/1.73 sq M pre dicted among blacks [Volume Rate/Area] in Serum or Plasma by Creatinine-based formula (MDRD) >60 [facility] ID Date Data Source [id number] 01/05/2020 07:09:24 AM [facility] Name Value Range Interpretation Code Description Data Grace rce(s) Supporting Document(s) Leukocytes [#/volume] in Blood by Automated count 8.6 10*3/uL 4-10 [facility] Erythrocytes [#/volume] in Blood by Automated count 3.35 10*6/uL 4.1- 5.3 L [facility] Hemoglobin [Mass/volume] in Blood 9.3 g/dL 11.5-15.5 [facility] Hematocrit [Volume Fraction] of Blood by Automated count 28.9 % 3 6-45 L [facility] Erythrocyte mean corpuscular volume [Entitic volume] by Auto mated count 86.2 fL 80-96 [facility] Erythrocyte mean corpuscular hemoglobin [Entitic mass] by Automated count 27.9 pg 27-33 [facility] Erythrocyte mean corpuscular hemoglobin concentration [Mass/volume] by Automated count 32.3 g/dL 32.0-36.0 [facility] width [Ratio] by Automated count 15.8 % 11.5-14.5 H [facility] Platelets [#/volume] in Blood by Automated count 384 10*3/uL 150-400 [facility] Differential cell count method - Blood [facility] Neutrophils/100 leukocytes in Blood by Automated count 58 % [facility] Lymphocytes/100 leukocytes in Blood by Automated count 21 % [facility] Monocytes/100 leukocytes in Blood by Automated count 13 % [facility] Eosinophils/100 leukocytes in Blood by Automated count 7 % [facility] Basophils/100 leukocytes in Blood by Automated count 1 % [facility] Neutrophils [#/volume] in Blood by Automated count 5.05 10*3/uL 1.8-7 .0 [facility] Lymphocytes [#/volume] in Blood by Automated count 1.77 10*3/uL 1.2-4 .0 [facility] Monocytes [#/volume] in Blood by Automated count 1.15 10*3/uL 0-0.8 H [facility] Eosinophils [#/volume] in Blood by Automated count 0.57 10*3/uL 0-0.5 H [facility] Basophils [#/volume] in Blood by Automated count 0.09 10*3/uL 0-0.2 [facility] Nucleated erythrocytes/100 leukocytes [Ratio] in Blood by Automated count 0 /100{WBCs} 0-0 [facility] ID Date Data Source [id number] 01/05/2020 07:32:[address] [facility] Name Value Range Interpretation Code Description Data Grace rce(s) Supporting Document(s) Bicarbonate [Moles/volume] in Serum 34 mmol/L 22-29 H [facility] Chloride [Moles/volume] in Serum or Plasma 96 mmol/L 98-107 L [facility] Creatinine [Mass/volume] in Serum or Plasma 0.37 mg/dL 0.50-0.90 L [facility] Glucose [Mass/volume] in Serum or Plasma 95 mg/dL 70-140 [facility] Potassium [Moles/volume] in Serum or Plasma 4.0 mmol/L 3.4-5.1 [facility] Sodium [Moles/volume] in Serum or Plasma 140 mmol/L 136-145 [facility] Urea nitrogen [Mass/volume] in Serum or Plasma 16 mg/dL 8-23 [facility] Anion gap 3 in Serum or Plasma 10 mmol/L 8-15 [facility] Osmolality of Serum or Plasma by calculation 291 mosm/kg 275-300 [facility] Creatinine/Urea nitrogen [Mass Ratio] in Serum or Plasma 43 [facility] Calcium [Mass/volume] in Serum or Plasma 9.1 mg/dL 8.8-10.2 [facility] Glomerular filtration rate/1.73 sq M pre dicted among non-blacks [Volume Rate/Area] in Serum or Plasma by Creatinine-based formula (MDRD) >6 0 [facility] Glomerular filtration rate/1.73 sq M pre dicted among blacks [Volume Rate/Area] in Serum or Plasma by Creatinine-based formula (MDRD) >60 [facility] ID Date Data Source [id number] 01/03/2020 03:55:57 PM EDT [facility] XR SHOULDER COMPLETE [id number] RESULTIn terpreted by:Sarah Dailey, DOINDICATION: pain, limited [...] rce(s) Supporting Document(s) ID Date Data Source [id number] 01/02/2020 04:48:59 PM EDT [facility] Name Value Range Interpretation Code Description Data Grace rce(s) Supporting Document(s) Consultation [facility] [id number] lbm [file] NLh1t0EIh2RmVrdxezlzVwYATeYq6g/bistro attendant/Nr6mh+QS I61I/FCxqjipwIelQL4uhdgCdmp3L+QnFaYp5XeJDUAqU2wkZNgzNE9JvIyBJ4oeqgAnVdVQemZf3LVD kVTiQu+uXGDcXDen22ZskbCb06uSLxXWxBXSz62dd7AGWmm+bsTbV57NTQ34cvRlGMMih5mfAlVDyLSv Jk54Se3K/LMjEdyTkynAgOE+9hQpZS2Jwdtus3UJpK g4xn857WqpTo8pBi6ir2wuScAawKj0rLOW5xZfGayt8+azQzFz4O7G1b3UU7cAxpL6yzSfpSwYiZyaKb GM1JBSe5a5EHiIWZaO27xZpvsBLSm6QAnYdBnQNa6mJVJoLUv/YaDS8jt6Bv6xqCe6EGDqyuXTdpgkuV BVQNIdxSt8jrbSnVOSI12zIOn+uKolbP8sitOCRshy +ZM8TLSwqikFSFzNqtD18/OH/YX+IyRC/fCLrTyhg5mFh32nPOfDLtUArIrhaU8YFPJ5DEUx8mqGFGHn MhXQnQCMx3OWAzVGXbRCKHJwFKxkV408ZG6xHBOKfghBN6ntwXeAkyXxU62ntFHtbnDZ2vsMskI1XAiF I8cAAJDCg5fbXSomsnqHHcD+BD8icw6eLjzzUiOxNz cybwlWkQc70lYXVpBBrm2kc2Iva9DkrJc0zSDMjaKhgVPr/iznNJdmIx3o+/UNMhVrOwdLqK0wagBYuX RcAd8jryGxZXKwmTzd9sR/kSahUmm6QTaiJ9nCBZiNIPzsVF/4sFoX74FkoEJq/XHuA4TaLQuPCz0QyW S9kloassAI8B7OAjydt8fFKmeFALHDMHfPQc6Zhqgc yUVztv2Sp4Qc+usmnRv0Nh4ezHLbQQWEPkp3BCfIQaHzm/4RviYatKeCOYOnNf09CvbdQlRjXhb9CZ7y voua1OInWdCp1vCBUNS3yCjVNduj1pPPvvkATY+h2kYxCYQkFsEByQqUYqwLVK7BuVHjGNHaVOLegEVW WLZMbxEydGXJK3g2ZnVovBoWiVlqtqMJUZQJHCWtok [file] [facility] ID Date Data Source [id number] 01/02/2020 07:03:[address] [facility] Name Value Range Interpretation Code Description Data Grace e(s) Supporting Document(s) Leukocytes [#/volume] in Blood by Automated count 8.2 10*3/uL 4-10 [facility] Erythrocytes [#/volume] in Blood by Automated count 3.29 10*6/uL 4.1- 5.3 L [facility] Hemoglobin [Mass/volume] in Blood 9.3 g/dL 11.5-15.5 L [facility] Hematocrit [Volume Fraction] of Blood by Automated count 28.6 % 3 6-45 L [facility] Erythrocyte mean corpuscular volume [Entitic volume] by Auto mated count 87.1 fL 80-96 [facility] Erythrocyte mean corpuscular hemoglobin [Entitic mass] by Automated count 28.4 pg 27-33 [facility] Erythrocyte mean corpuscular hemoglobin concentration [Mass/volume] by Automated count 32.6 g/dL 32.0-36.0 [facility] E[facility]throcyte distribution width [Ratio] by Automated count 15.7 % 11.5-14.5 H [facility] Platelets [#/volume] in Blood by Automated count 373 10*3/uL 150-400 [facility] Differential cell count method - Blood [facility] Neutrophils/100 leukocytes in Blood by Automated count 59 % [facility] Lymphocytes/100 leukocytes in Blood by Automated count 21 % [facility] Monocytes/100 leukocytes in Blood by Automated count 13 % [facility] Eosinophils/100 leukocytes in Blood by Automated count 6 % [facility] Basophils/100 leukocytes in Blood by Automated count 1 % [facility] Neutrophils [#/volume] in Blood by Automated count 4.84 10*3/uL 1.8-7 .0 [facility] Lymphocytes [#/volume] in Blood by Automated count 1.74 10*3/uL 1.2-4 .0 [facility] Monocytes [#/volume] in Blood by Automated count 1.04 10*3/uL 0-0.8 H [facility] Eosinophils [#/volume] in Blood by Automated count 0.50 10*3/uL 0-0.5 [facility] Basophils [#/volume] in Blood by Automated count 0.09 10*3/uL 0-0.2 [facility] Nucleated erythrocytes/100 leukocytes [Ratio] in Blood by Automated count 0 /100{WBCs} 0-0 [facility] ID Date Data Source [id number] 01/02/2020 07:19:37 AM [facility] Name Value Range Interpretation Code Description Data Grace rce(s) Supporting Document(s) Bicarbonate [Moles/volume] in Serum 34 mmol/L 22-29 H [facility] Chloride [Moles/volume] in Serum or Plasma 95 mmol/L 98-107 [facility] Creatinine [Mass/volume] in Serum or Plasma 0.44 mg/dL 0.50-0.90 [facility] Glucose [Mass/volume] in Serum or Plasma 96 mg/dL 70-140 [facility] Potassium [Moles/volume] in Serum or Plasma 4.1 mmol/L 3.4-5.1 [facility] Sodium [Moles/volume] in Serum or Plasma 139 mmol/L 136-145 [facility] Urea nitrogen [Mass/volume] in Serum or Plasma 20 mg/dL 8-23 [facility] Anion gap 3 in Serum or Plasma 10 mmol/L 8-15 [facility] Osmolality of Serum or Plasma by calculation 290 mosm/kg 275-300 [facility] Creatinine/Urea nitrogen [Mass Ratio] in Serum or Plasma 44 [facility] Calcium [Mass/volume] in Serum or Plasma 8.7 mg/dL 8.8-10.2 [facility] Glomerular filtration rate/1.73 sq M pre dicted among non-blacks [Volume Rate/Area] in Serum or Plasma by Creatinine-based formula (MDRD) >6 0 [facility] Glomerular filtration rate/1.73 sq M pre dicted among blacks [Volume Rate/Area] in Serum or Plasma by Creatinine-based formula (MDRD) >60 [facility] ID Date Data Source [id number] 12/29/2019 05:05:18 AM [facility] Name Value Range Interpretation Code Description Data Grace rce(s) Supporting Document(s) Leukocytes [#/volume] in Blood by Automated count 7.6 10*3/uL 4-10 [facility] Erythrocytes [#/volume] in Blood by Automated count 3.25 10*6/uL 4.1- 5.3 L [facility] Hemoglobin [Mass/volume] in Blood 9.3 g/dL 11.5-15.5 L [facility] Hematocrit [Volume Fraction] of Blood by Automated count 28.1 % 3 6-45 L [facility] Erythrocyte mean corpuscular volume [Entitic volume] by Auto mated count 86.4 fL 80-96 [facility] Erythrocyte mean corpuscular hemoglobin [Entitic mass] by Automated count 28.7 pg 27-33 [facility] Erythrocyte mean corpuscular hemoglobin concentration [Mass/volume] by Automated count 33.2 g/dL 32.0-36.0 [facility] E[facility]th[facility] distribution width [Ratio] by Automated count 16.1 % 11.5-14.5 H [facility] Platelets [#/volume] in Blood by Automated count 363 10*3/uL 150-400 [facility] Differential cell count method - Blood [facility] Neutrophils/100 leukocytes in Blood by Automated count 57 % [facility] Lymphocytes/100 leukocytes in Blood by Automated count 22 % [facility] Monocytes/100 leukocytes in Blood by Automated count 13 % [facility] Eosinophils/100 leukocytes in Blood by Automated count 7 % [facility] Basophils/100 leukocytes in Blood by Automated count 1 % [facility] Neutrophils [#/volume] in Blood by Automated count 4.39 10*3/uL 1.8-7 .0 [facility] Lymphocytes [#/volume] in Blood by Automated count 1.64 10*3/uL 1.2-4 .0 [facility] Monocytes [#/volume] in Blood by Automated count 0.96 10*3/uL 0-0.8 H [facility] Eosinophils [#/volume] in Blood by Automated count 0.53 10*3/uL 0-0.5 H [facility] Basophils [#/volume] in Blood by Automated count 0.07 10*3/uL 0-0.2 [facility] Nucleated erythrocytes/100 leukocytes [Ratio] in Blood by Automated count 0 /100{WBCs} 0-0 [facility] ID Date Data Source [id number] 12/29/2019 05:31:[address] [facility] Name Value Range Interpretation Code Description Data Grace rce(s) Supporting Document(s) Bicarbonate [Moles/volume] in Serum 33 mmol/L 22-29 H [facility] Chloride [Moles/volume] in Serum or Plasma 94 mmol/L 98-107 L [facility] Creatinine [Mass/volume] in Serum or Plasma 0.39 mg/dL 0.50-0.90 [facility] Glucose [Mass/volume] in Serum or Plasma 100 mg/dL 70-140 [facility] Potassium [Moles/volume] in Serum or Plasma 3.9 mmol/L 3.4-5.1 [facility] Sodium [Moles/volume] in Serum or Plasma 136 mmol/L 136-145 [facility] Urea nitrogen [Mass/volume] in Serum or Plasma 20 mg/dL 8-23 [facility] Anion gap 3 in Serum or Plasma 9 mmol/L 8-15 [facility] Osmolality of Serum or Plasma by calculation 285 mosm/kg 275-300 [facility] Creatinine/Urea nitrogen [Mass Ratio] in Serum or Plasma 51 [facility] Calcium [Mass/volume] in Serum or Plasma 8.6 mg/dL 8.8-10.2 L [facility] Glomerular filtration rate/1.73 sq M pre dicted among non-blacks [Volume Rate/Area] in Serum or Plasma by Creatinine-based formula (MDRD) >6 0 [facility] Glomerular filtration rate/1.73 sq M pre dicted among blacks [Volume Rate/Area] in Serum or Plasma by Creatinine-based formula (MDRD) >60 [facility] ID Date Data Source [id number] 12/26/2019 01:34:11 PM EDT [facility] Name Value Range Interpretation Code Description Data Grace rce(s) Supporting Document(s) [facility] [id number] [facility] [file] [id number] ID Date Data Source [id number] 12/26/2019 07:49:51 AM EDT [facility] Name Value Range Interpretation Code Description Data Grace [facility](s) Supporting Document(s) Leukocytes [#/volume] in Blood by Automated count 8.5 10*3/uL 4-10 [facility] Erythrocytes [#/volume] in Blood by Automated count 3.20 10*6/uL 4.1- 5.3 L [facility] Hemoglobin [Mass/volume] in Blood 9.1 g/dL 11.5-15.5 L [facility] Hematocrit [Volume Fraction] of Blood by Automated count 28.2 % 3 6-45 L [facility] Erythrocyte mean corpuscular volume [Entitic volume] by Auto mated count 88.2 fL 80-96 [facility] Erythrocyte mean corpuscular hemoglobin [Entitic mass] by Automated count 28.3 pg 27-33 [facility] Erythrocyte mean corpuscular hemoglobin concentration [Mass/volume] by Automated count 32.1 g/dL 32.0-36.0 [facility] Erythrocyte distribution width [Ratio] by Automated count 16.7 % 11.5-14.5 H [facility] Platelets [#/volume] in Blood by Automated count 340 10*3/uL 150-400 [facility] Differential cell count method - Blood [facility] Neutrophils/100 leukocytes in Blood by Automated count 58 % [facility] Lymphocytes/100 leukocytes in Blood by Automated count 22 % [facility] Monocytes/100 leukocytes in Blood by Automated count 13 % [facility] Eosinophils/100 leukocytes in Blood by Automated count 6 % [facility] Basophils/100 leukocytes in Blood by Automated count 1 % [facility] Neutrophils [#/volume] in Blood by Automated count 4.98 10*3/uL 1.8-7 .0 [facility] Lymphocytes [#/volume] in Blood by Automated count 1.88 10*3/uL 1.2-4 .0 [facility] Monocytes [#/volume] in Blood by Automated count 1.08 10*3/uL 0-0.8 H [facility] Eosinophils [#/volume] in Blood by Automated count 0.52 10*3/uL 0-0.5 H [facility] Basophils [#/volume] in Blood by Automated count 0.10 10*3/uL 0-0.2 [facility] Nucleated erythrocytes/100 leukocytes [Ratio] in Blood by Automated count 0 /100{WBCs} 0-0 [facility] ID Date Data Source [id number] 12/26/2019 10:25:19 AM EDT [facility] Name Value Range Interpretation Code Description Data Grace rce(s) Supporting Document(s) Albumin [Mass/volume] in Serum or Plasma by Bromocresol green (BCG) dye binding method 3.0 g/dL 3.5-5.2 L [facility] Bilirubin.total [Mass/volume] in Serum or Plasma <1.2 [facility] Calcium [Mass/volume] in Serum or Plasma 9.0 mg/dL 8.8-10.2 [facility] Chloride [Moles/volume] in Serum or Plasma 96 mmol/L 98-107 L [facility] Creatinine [Mass/volume] in Serum or Plasma 0.40 mg/dL 0.50-0.90 L [facility] Glucose [Mass/volume] in Serum or Plasma 90 mg/dL 70-140 [facility] Alkaline phosphatase [Enzymatic activity/volume] in Serum or Plasma 107 U/L 35-104 H [facility] Potassium [Moles/volume] in Serum or Plasma 4.0 mmol/L 3.4-5.1 [facility] Protein [Mass/volume] in Serum or Plasma 5.8 g/dL 6.4-8.3 [facility] Sodium [Moles/volume] in Serum or Plasma 137 mmol/L 136-145 [facility] Aspartate aminotransferase [Enzymatic activity/volume] in Serum or Plasma 16 U/L <32 [facility] Urea nitrogen [Mass/volume] in Serum or Plasma 18 mg/dL 8-23 [facility] Osmolality of Serum or Plasma by calculation 285 mosm/kg 275-300 [facility] Creatinine/Urea nitrogen [Mass Ratio] in Serum or Plasma 45 [facility] Bicarbonate [Moles/volume] in Serum 34 mmol/L 22-29 H [facility] Alanine aminotransferase [Enzymatic activity/volume] in Seru m or Plasma 21 U/L <33 [facility] Anion gap 3 in Serum or Plasma 7 mmol/L 8-15 L [facility] Glomerular filtration rate/1.73 sq M pre dicted among non-blacks [Volume Rate/Area] in Serum or Plasma by Creatinine-based formula (MDRD) >6 0 [facility] Glomerular filtration rate/1.73 sq M pre dicted among blacks [Volume Rate/Area] in Serum or Plasma by Creatinine-based formula (MDRD) >60 [facility] ID Date Data Source [id number] 12/22/2019 06:48:[address] [facility] Name Value Range Interpretation Code Description Data Grace rce(s) Supporting Document(s) Leukocytes [#/volume] in Blood by Automated count 9.6 10*3/uL 4-10 [facility] Erythrocytes [#/volume] in Blood by Automated count 3.10 10*6/uL 4.1- 5.3 [facility] Hemoglobin [Mass/volume] in Blood 8.8 g/dL 11.5-15.5 [facility] Hematocrit [Volume Fraction] of Blood by Automated count 27.1 % 3 6-45 L [facility] Erythrocyte mean corpuscular volume [Entitic volume] by Auto mated count 87.4 fL 80-96 [facility] Erythrocyte mean corpuscular hemoglobin [Entitic mass] by Automated count 28.3 pg 27-33 [facility] Erythrocyte mean corpuscular hemoglobin concentration [Mass/volume] by Automated count 32.4 g/dL 32.0-36.0 [facility] Erythrocyte distribution width [Ratio] by Automated count 16.3 % 11.5-14.5 H [facility] Platelets [#/volume] in Blood by Automated count 345 10*3/uL 150-400 [facility] Differential cell count method - Blood [facility] Neutrophils/100 leukocytes in Blood by Automated count 64 % [facility] Lymphocytes/100 leukocytes in Blood by Automated count 19 % [facility] Monocytes/100 leukocytes in Blood by Automated count 10 % [facility] Eosinophils/100 leukocytes in Blood by Automated count 6 % [facility] Basophils/100 leukocytes in Blood by Automated count 1 % [facility] Neutrophils [#/volume] in Blood by Automated count 6.17 10*3/uL 1.8-7 .0 [facility] Lymphocytes [#/volume] in Blood by Automated count 1.82 10*3/uL 1.2-4 .0 [facility] Monocytes [#/volume] in Blood by Automated count 0.95 10*3/uL 0-0.8 H [facility] Eosinophils [#/volume] in Blood by Automated count 0.54 10*3/uL 0-0.5 H [facility] Basophils [#/volume] in Blood by Automated count 0.08 10*3/uL 0-0.2 [facility] Nucleated erythrocytes/100 leukocytes [Ratio] in Blood by Automated count 0 /100{WBCs} 0-0 [facility] ID Date Data Source [id number] 12/22/2019 07:13:[address] [facility] Name Value Range Interpretation Code Description Data Grace rce(s) Supporting Document(s) Bicarbonate [Moles/volume] in Serum 35 mmol/L 22-29 H [facility] Chloride [Moles/volume] in Serum or Plasma 99 mmol/L 98-107 [facility] Creatinine [Mass/volume] in Serum or Plasma 0.36 mg/dL 0.50-0.90 L [facility] Glucose [Mass/volume] in Serum or Plasma 96 mg/dL 70-140 [facility] Potassium [Moles/volume] in Serum or Plasma 4.0 mmol/L 3.4-5.1 [facility] Sodium [Moles/volume] in Serum or Plasma 142 mmol/L 136-145 [facility] Urea nitrogen [Mass/volume] in Serum or Plasma 22 mg/dL 8-23 [facility] Anion gap 3 in Serum or Plasma 8 mmol/L 8-15 [facility] Osmolality of Serum or Plasma by calculation 297 mosm/kg 275-300 [facility] Creatinine/Urea nitrogen [Mass Ratio] in Serum or Plasma 61 [facility] Calcium [Mass/volume] in Serum or Plasma 9.0 mg/dL 8.8-10.2 [facility] Glomerular filtration rate/1.73 sq M pre dicted among non-blacks [Volume Rate/Area] in Serum or Plasma by Creatinine-based formula (MDRD) >6 0 [facility] Glomerular filtration rate/1.73 sq M pre dicted among blacks [Volume Rate/Area] in Serum or Plasma by Creatinine-based formula (MDRD) >60 [facility] ID Date Data Source [id number] 12/19/2019 07:14:[address] [facility] Name Value Range Interpretation Code Description Data Grace rce(s) Supporting Document(s) Leukocytes [#/volume] in Blood by Automated count 8.7 10*3/uL 4-10 [facility] Erythrocytes [#/volume] in Blood by Automated count 3.23 10*6/uL 4.1- 5.3 L [facility] Hemoglobin [Mass/volume] in Blood 9.1 g/dL 11.5-15.5 L [facility] Hematocrit [Volume Fraction] of Blood by Automated count 28.5 % 3 6-45 L [facility] Erythrocyte mean corpuscular volume [Entitic volume] by Auto mated count 88.2 fL 80-96 [facility] Erythrocyte mean corpuscular hemoglobin [Entitic mass] by Automated count 28.2 pg 27-33 [facility] Erythrocyte mean corpuscular hemoglobin concentration [Mass/volume] by Automated count 32.0 g/dL 32.0-36.0 [facility] E[facility]th[facility] distribution width [Ratio] by Automated count 15.7 % 11.5-14.5 H [facility] Platelets [#/volume] in Blood by Automated count 354 10*3/uL 150-400 [facility] Differential cell count method - Blood [facility] Neutrophils/100 leukocytes in Blood by Automated count 59 % [facility] Lymphocytes/100 leukocytes in Blood by Automated count 21 % [facility] Monocytes/100 leukocytes in Blood by Automated count 12 % [facility] Eosinophils/100 leukocytes in Blood by Automated count 7 % [facility] Basophils/100 leukocytes in Blood by Automated count 1 % [facility] Neutrophils [#/volume] in Blood by Automated count 5.15 10*3/uL 1.8-7 .0 [facility] Lymphocytes [#/volume] in Blood by Automated count 1.83 10*3/uL 1.2-4 .0 [facility] Monocytes [#/volume] in Blood by Automated count 1.01 10*3/uL 0-0.8 H [facility] Eosinophils [#/volume] in Blood by Automated count 0.58 10*3/uL 0-0.5 H [facility] Basophils [#/volume] in Blood by Automated count 0.12 10*3/uL 0-0.2 [facility] Nucleated erythrocytes/100 leukocytes [Ratio] in Blood by Automated count 0 /100{WBCs} 0-0 [facility] ID Date Data Source [id number] 12/19/2019 08:09:[address] [facility] Name Value Range Interpretation Code Description Data Grace rce(s) Supporting Document(s) Albumin [Mass/volume] in Serum or Plasma by Bromocresol green (BCG) dye binding method 3.2 g/dL 3.5-5.2 [facility] Bil[facility].total [Mass/volume] in Serum or Plasma <1.2 [facility] Calcium [Mass/volume] in Serum or Plasma 8.0 mg/dL 8.8-10.2 L [facility] Chloride [Moles/volume] in Serum or Plasma 98 mmol/L 98-107 [facility] Creatinine [Mass/volume] in Serum or Plasma 0.33 mg/dL 0.50-0.90 L [facility] Glucose [Mass/volume] in Serum or Plasma 100 mg/dL 70-140 [facility] Alkaline phosphatase [Enzymatic activity/volume] in Serum or Plasma 143 U/L 35-104 H [facility] Confirmed Potassium [Moles/volume] in Serum or Plasma 4.0 mmol/L 3.4-5.1 [facility] Protein [Mass/volume] in Serum or Plasma 5.8 g/dL 6.4-8.3 L [facility] Sodium [Moles/volume] in Serum or Plasma 140 mmol/L 136-145 [facility] Aspartate aminotransferase [Enzymatic activity/volume] in Serum or Plasma 12 U/L <32 [facility] Urea nitrogen [Mass/volume] in Serum or Plasma 23 mg/dL 8-23 [facility] Osmolality of Serum or Plasma by calculation 294 mosm/kg 275-300 [facility] Creatinine/Urea nitrogen [Mass Ratio] in Serum or Plasma 70 [facility] Bicarbonate [Moles/volume] in Serum 34 mmol/L 22-29 H [facility] Alanine aminotransferase [Enzymatic activity/volume] in Seru m or Plasma 29 U/L <33 [facility] Anion gap 3 in Serum or Plasma 8 mmol/L 8-15 [facility] Glomerular filtration rate/1.73 sq M pre dicted among non-blacks [Volume Rate/Area] in Serum or Plasma by Creatinine-based formula (MDRD) >6 0 [facility] Glomerular filtration rate/1.73 sq M pre dicted among blacks [Volume Rate/Area] in Serum or Plasma by Creatinine-based formula (MDRD) >60 [facility] ID Date Data Source [id number] 12/18/2019 04:47:34 PM EDT [facility] XR ABDOMEN AP ABD SUPINE ONLY [id number] RESULTInterpreted by:Mehdi Dangelo, MDPROCEDURE INFORMATION: Exam: XR Abdomen, 1 View Exam date and time: 12/18/2019 3:20 PM Age: 64 years old Clinical indication: Other: Nausea, evaluate stool burden TECHNIQUE: Imaging protocol: XR of the abdomen. Views: Frontal supine view of the abdomen. 1 View. COMPARISON: DX XR ABDOMEN AP ABD SUPINE ONLY [id number] PORTABLE 11/30/2019 6:31 PM FINDINGS: Gastrointestinal tract: [...] rce(s) Supporting Document(s) ID Date Data Source [id number] 12/18/2019 04:41:34 PM EDT [facility] XR CHEST FRONTAL ONLY [id number] RESULTI nterpreted by:Mehdi Dangelo [facility]: Exam: XR Chest, 1 View Exam date and time: 12/18/2019 3:20 PM Age: 64 years old Clinical indication: Other: Increasing oxygen requirement TECHNIQUE: Imaging protocol: XR of the chest Views: 1 view. COMPARISON: CR XR CHEST FRONTAL ONLY [id number] PORTABLE 11/21/2019 12:09 PM FINDINGS: Tubes, catheters [...] rce(s) Supporting Document(s) ID Date Data Source [id number] 12/15/2019 02:30:26 PM EDT [facility] Name Value Range Interpretation Code Description Data Grace rce(s) Supporting Document(s) [facility] [id number] lbm [file] ID Date Data Source [id number] 12/15/2019 06:12:57 AM EDT [facility] Name Value Range Interpretation Code Description Data Grace rce(s) Supporting Document(s) Leukocytes [#/volume] in Blood by Automated count 7.1 10*3/uL 4-10 [facility] Erythrocytes [#/volume] in Blood by Automated count 3.18 10*6/uL 4.1- 5.3 L [facility] Hemoglobin [Mass/volume] in Blood 9.0 g/dL 11.5-15.5 L [facility] Hematocrit [Volume Fraction] of Blood by Automated count 28.1 % 3 6-45 L [facility] Erythrocyte mean corpuscular volume [Entitic volume] by Auto mated count 88.2 fL 80-96 [facility] Erythrocyte mean corpuscular hemoglobin [Entitic mass] by Automated count 28.3 pg 27-33 [facility] Erythrocyte mean corpuscular hemoglobin concentration [Mass/volume] by Automated count 32.0 g/dL 32.0-36.0 [facility] E[facility]th[facility] distribution width [Ratio] by Automated count 16.1 % 11.5-14.5 H [facility] Platelets [#/volume] in Blood by Automated count 351 10*3/uL 150-400 [facility] Differential cell count method - Blood [facility] Neutrophils/100 leukocytes in Blood by Automated count 53 % [facility] Lymphocytes/100 leukocytes in Blood by Automated count 25 % [facility] Monocytes/100 leukocytes in Blood by Automated count 14 % [facility] Eosinophils/100 leukocytes in Blood by Automated count 7 % [facility] Basophils/100 leukocytes in Blood by Automated count 1 % [facility] Neutrophils [#/volume] in Blood by Automated count 3.73 10*3/uL 1.8-7 .0 [facility] Lymphocytes [#/volume] in Blood by Automated count 1.76 10*3/uL 1.2-4 .0 [facility] Monocytes [#/volume] in Blood by Automated count 0.98 10*3/uL 0-0.8 H [facility] Eosinophils [#/volume] in Blood by Automated count 0.51 10*3/uL 0-0.5 H [facility] Basophils [#/volume] in Blood by Automated count 0.10 10*3/uL 0-0.2 [facility] Nucleated erythrocytes/100 leukocytes [Ratio] in Blood by Automated count 0 /100{WBCs} 0-0 [facility] ID Date Data Source [id number] 12/15/2019 06:17:[address] [facility] Name Value Range Interpretation Code Description Data Grace rce(s) Supporting Document(s) Albumin [Mass/volume] in Serum or Plasma by Bromocresol green (BCG) dye binding method 3.2 g/dL 3.5-5.2 [facility] Bilirubin.total [Mass/volume] in Serum or Plasma 0.2 mg/dL <1.2 [facility] Calcium [Mass/volume] in Serum or Plasma 8.7 mg/dL 8.8-10.2 L [facility] Chloride [Moles/volume] in Serum or Plasma 99 mmol/L 98-107 [facility] Creatinine [Mass/volume] in Serum or Plasma 0.30 mg/dL 0.50-0.90 L [facility] Glucose [Mass/volume] in Serum or Plasma 87 mg/dL 70-140 [facility] Alkaline phosphatase [Enzymatic activity/volume] in Serum or Plasma 280 U/L 35-104 H [facility] Potassium [Moles/volume] in Serum or Plasma 4.1 mmol/L 3.4-5.1 [facility] Protein [Mass/volume] in Serum or Plasma 5.8 g/dL 6.4-8.3 L [facility] Sodium [Moles/volume] in Serum or Plasma 139 mmol/L 136-145 [facility] Aspartate aminotransferase [Enzymatic activity/volume] in Serum or Plasma 51 U/L <32 H [facility] Urea nitrogen [Mass/volume] in Serum or Plasma 22 mg/dL 8-23 [facility] Osmolality of Serum or Plasma by calculation 291 mosm/kg 275-300 [facility] Creatinine/Urea nitrogen [Mass Ratio] in Serum or Plasma 73 [facility] Bicarbonate [Moles/volume] in Serum 34 mmol/L 22-29 H [facility] Alanine aminotransferase [Enzymatic activity/volume] in Seru m or Plasma 116 U/L <33 H [facility] Anion gap 3 in Serum or Plasma 6 mmol/L 8-15 L [facility] Glomerular filtration rate/1.73 sq M pre dicted among non-blacks [Volume Rate/Area] in Serum or Plasma by Creatinine-based formula (MDRD) >6 0 [facility] Glomerular filtration rate/1.73 sq M pre dicted among blacks [Volume Rate/Area] in Serum or Plasma by Creatinine-based formula (MDRD) >60 [facility] ID Date Data Source [id number] 12/14/2019 11:35:14 PM EDT [facility] XR THORACIC SPINE AP AND LATERALFINAL RE SULTInterpreted by:Chema [place] [facility] INFORMATION: Exam: XR Thoracic Spine, [...] rce(s) Supporting Document(s) ID Date Data Source [id number] 12/14/2019 12:53:39 PM EDT [facility] Name Value Range Interpretation Code Description Data Grace rce(s) Supporting Document(s) History and Physical [facility] [id number]/HIEuwHGCpo6AyRHdrHVj2PDhwYYOzF5OnQNA2rG0mTDC6WSjLWiTrTvPcNpP2 lbm PdVbjNOnBcZATqHmgNBjPdVEjoZzwubIUwEF4TeXO5SGIqH43sWTWaSFMnR6EfTGWnWud+Nl1VRXTdkG RcAX4YCnzZ4E7tPerRTxW/n3T/q1dhIDroutp/wM5EnvmZJDsK6IGjnG5Go6nKqKN1DJd/a6FyK4Od+H pcxroiltab5HeSrFKT66okbjvu/vcfbyNLfN/37v4v [file] 8ubZwGj0CHrN+aLi/Татьяна/siW9/ab4sIKTSTzmeXITx3 [file] m+IL2V+LprDleS20kt08Wp8H0oG7FF9uAWIlQE+Elías [file] AgICAgICAgICAgICAgICAgICAgICAgICAgICAgICAgICAgICAgICAgICAgICAgICAgICAgICAgICAgIC KvBDFuGEMoFBNyIEBsLJ1WLDPqOAViHUMnXRWzHYRtNNBrWDFfWTZbCSXhYCDkUEPcWXBeIUSqSCXuKE AgICAgICAgICAgICAgICAgICAgICAgICAgICAgICAg TGWbAXZyAUZgOZSpNJOvCUMoFUBrXBCiMD2JCBLiEQMzKBRcSQDaLZGgSNKpBWPsPPOuGLCtHRSdYBFp ICAgICAgICAgICAgICAgICAgICAgICAgICAgICAgICAgICAgICAgICAgICAgICAgICAgICAgICAgICAg CILaDTRpCU4BDLFsHCZoXPOhYSRjSOJdXBDoXCFlHP AgICAgICAgICAgICAgICAgICAgICAgICAgICAgICAgICAgICAgICAgICAgICAgICAgICAgICAgICAgIC UcWKXjPHIbUCWtWHJjKSUkVK2JLWHdFJKyKKVcFBLoSZPsUDZqRKUwUYLhRNTkGAOuSWRcKJItLCEqKQ AgICAgICAgICAgICAgICAgICAgICAgICAgICAgICAg NRKoUUVmCEZsWIBqANKuQFEuQRAoAUTxBXOoDE9NVNKwQNKhBCIoHBTgWQFiDHRwJGTkBWPwZSLrGUKx ICAgICAgICAgICAgICAgICAgICAgICAgICAgICAgICAgICAgICAgICAgICAgICAgICAgICAgICAgICAg PFIoDOWoPWXfEV8MWILfLYHlMEOpEJOeVDNvNLQoEW AgICAgICAgICAgICAgICAgICAgICAgICAgICAgICAgICAgICAgICAgICAgICAgICAgICAgICAgICAgIC MlQOHbJCFfPSKjFYQbDZGqHBUuQW6TWFRyHEEmQGZgDVUqJKMkCFPrEPYqFMHwPTWxXKIuDVDgALCkKU AgICAgICAgICAgICAgICAgICAgICAgICAgICAgICAg TLBfQQUpYAFuNOXpSDLrANOlZEJyKOErYXRsDUSwHJ8SKAKkXMVpZRMvNFFlIZCiEWIvQDQlTKGwVOYe ICAgICAgICAgICAgICAgICAgICAgICAgICAgICAgICAgICAgICAgICAgICAgICAgICAgICAgICAgICAg DUMjHDShJEJbQFTaFP1AUTVbZXDpECDjSMCdCMCfDU AgICAgICAgICAgICAgICAgICAgICAgICAgICAgICAgICAgICAgICAgICAgICAgICAgICAgICAgICAgIC DiGOViSFIgSCPiQGWoFIQyXLGbJHOnOJ5XFT63eBNkz2E1LUVtEH4knfh/Qg9YZVhefyPodRGvOE4PGs EzDG3xrb2QLbCeWK4cxc9WYMkPYdEtB8R3sEZmCEBv YFMNPdTwS52sJVobDj20JPtdJTUrKxDsMTx2Kd4FJqCjZ7jxLIIoThS4WXTzMuX9PSHoBcK4HGRkBgKz AIApZIBzBNWmQFRNQCM1OTQqNxIhVkWfJRHwCTaxQMQJNVGeWMTsDeSgTcMbMZUnFyQqAEKEJIA1HJGm UiAyOSAwIFIgMzEgMCBSIDMzIDAgUiAzNSAwIFIgMz ufQJGOFSM2XVKtSuF1LJJrHTWlLF0IFTFrK500hjVzWHcBIt1+AZqirkQiKoeJIuRpULJlb6BdLUh2FV 9BJLSfZkfrn0KgTrFtLVFYZVppGO9HQCX7KAUeTAHrAm0CGBTeS463lbXrQM0DYu7DIwBeQB9yqf2ZEa AkTEQyWcwFAwa7ADiyPW4PvOGpBElMNuBhGlajLCC0 oQQeHIHTMQ06KNTyQY9BOPF8JDopXMGdKzPkRUIoIit6TiIJAElDStMbB1Fal7LqNgG2SQCbBfXyYOgj FPXtPlH7YH56rEdqAR5FVDZlDEKkEB46ZKJdZUDsHk9OGc4EJeKxKM7pxn1LQgNzJJZpFkiNAsf1MTll OZ7ByHEkU0TyzZLis6pHHlEuX5OSJMF1HLRcYw5RYQ VeLqNyEJIsKBfwFK3rJIJuPUDMbByavxV6TI0REQ4hklJqBK5ERbSxZz3oPz1JMcQpO4WwT8UiDZHvWB DMRYaoVH7MQKaeQO8yYI3Yb8QQlWAioU6aaz2SZDWjJDFbFpslls3HNdkdU9H6iYkdQGGgXhAeQOHSCE nsAP3AENFyQGU4QPG3ELAsIOHEBiQrC65yWK2DH3Gs n94vQzB5WLZkIdEbAIchFO30wEzyfhRynTLonVabAM7GVv3+DQplbmRvYmoNCnhyZWYNCjAgNjMNCjAw INXzHPDsNOEfZpJ2BtJyBl4VSEIsVGPhTAZlQgNqOUTnTEGyZRmmEFTxIJlgXhxiGUTjEOFyLM9EXfLh JRXpVORwYLrbUTZwUNIafp0JINUzBGZkAIO9MpHoLP UdHNIaLHdwSZCpOQR5JiU8FRShVJSeUS7LZbOwTNKfFHK8GIZlOWXhDXVacn3AGXUiURRvNyg1KTKcKQ RtEJZhHEvzGJDoMFZ1TCW7NATxPTTbXR2LAsGiPNMaKRB8DQDvQXViMMPeai4DJQMyRVRnIGi9ZQKwJQ JdYSSpGWokSTRgMVN6XTN5ZNJwWDOlBY1GLwZgLSHt FQCsPyGqTNUwLMEjwb9EZUUjNZTxPLI5PCThFQPhMCMfEZpyRXLmPEI9BNerMWYeMEVvOE1FOrVnFPSn BaC6VdFjEHKeAJOroy2QBEWmPPEzHrO3NoQcYEHhDPNiLPqpPVRcWHY8BYM6CXWmSTJhXW1BHhKkGAFe KoDbXMGvIBPqEUMkyd0WZCMgDAYvHUM7IRLzKCWhLM WmKKimRFJeFGP4MVa6CZAqQDCtOY0SWvJxPDSqTpF4MKPaTFIcOZAsmb8JFRIlOUEoOqqcCNQbAVYhGO JyAEszWZOlATV3KRrpTICiUWKvYE7FSeDtREFsVoyzYRmrJITxPDLyrm4UCALeZYY7JzC1NGNvFCUnSA MiCEbhWOEwZBEcObB3UHGkAWJnAP0NNrJiKVYcLXV2 XbMxQVCwYXSuej8MBOIpWLA7XgH2FfLoNYKtWJImHTiiVNEyOOHqWYO5IFCxGVOqAK2BXpHgLRBhYLEv XuRoXQEnOWOwqh6XQUFuGMB6ZEB7NGOuLXHiWKVtDCuhZUHvQJL9Fdk3XAIpUYRpXH1PVdTnNJKeRNx0 LHLcOMAsIHQzge8JTKHeTJD3YwG7AcMaYNTcRUWyMI cuJNDqZRBzHfSdSEHyAZYdZH5UXhBbSFCmFaQ4WKGxHXLfJAHvxh1HLUZzSFD1RzPuNhBbMXDbAYSqAE vpQNHmUGU4UtK1LKWcREPwYH0LKsEyEGXqXdI9DUVyGDJbIQXdyp0ZOIErWTZ5YAm6RDSxGKZjAUWcBG jqDJVrSLpvPmx9CJNyUUSeNC4CRrYfSRFxIvO4XWTu SAQpEBXchz5VXMZpQRS5FsL2ImMrLCOsZRRxTQioJUGfFNxvFzPmPGEoZIVlCO1SUoOlWQToNqG1VBOd CMVaLXAvss3YHLQwNHY5CMkyDlCyIXYbSVSiVAkbAMSwNVs6QCE2XTQbURPnJX7YOjZeVDJuJaSfODNs NKNcLVHzif4RWKBoWKF8UzJ6LgBmJMNmJVNdRSmrVR JbJXa3TLa6INOiJRNiVT6ZEsSoDAOaMJkjUKGnMISxSQMwqr4GTSLeTJH8EkP4PnWkYCStOUZhDUxgPU FoUYt6JYk6RSCxCQNrKK8BYaViQTPbYOJ0NQVaVEVdZXJpoa2WDPVnJUP0Viv3NwCbTFNgWJPeISjqDA CoQZckLGf5SGVhSAUwXH8ECdKaVVLeQNPiUPQgLXSr WWIydp8UZYPoCRR9ApJ1LPGuGNVbPSKwIZrdWBNvCTleWun6CGFyYKXxNO5FZsEzEDDxMTGnLPLsWJIs RVMytn4IAXVvNFT3LHCxPkRePGDtPCNfWTiuLMSaIQu7EOReNJTvUBRnDB4YMdYcLZdeYNVYFvi3AQob C5n8EDB7Vm5RC7Mym6OsXwUfVKHEWAkdLF2arvLpRO EuAt7XD6nUEpv2MqKbLnYrBLVuGvHoCuEcTWzaNGDxMxMxSiG2CGTtMV4aIUMaNiU3GZLqZwWxQDF4GV VfK6V7YeRbMyCkOgG0WuF1FzXqFO4GGc0OAeX4NNU6oWJtZo2SKEW9ILBNXaUdAS8HZOb= ID Date Data Source [id number] 12/14/2019 08:59:09 AM T [facility] Name Value Range Interpretation Code Description Data Grace rce(s) Supporting Document(s) Glucose [Mass/volume] in Capillary blood by Glucometer 96 mg/dL 70- 140 [facility] ID Date Data Source [id number] 12/14/2019 07:01:[address] [facility] Name Value Range Interpretation Code Description Data Grace rce(s) Supporting Document(s) Leukocytes [#/volume] in Blood by Automated count 8.0 10*3/uL 4-10 [facility] Erythrocytes [#/volume] in Blood by Automated count 3.15 10*6/uL 4.1- 5.3 L [facility] Hemoglobin [Mass/volume] in Blood 8.9 g/dL 11.5-15.5 L [facility] Hematocrit [Volume Fraction] of Blood by Automated count 28.0 % 3 6-45 L [facility] Erythrocyte mean corpuscular volume [Entitic volume] by Auto mated count 89.0 fL 80-96 [facility] Erythrocyte mean corpuscular hemoglobin [Entitic mass] by Automated count 28.2 pg 27-33 [facility] Erythrocyte mean corpuscular hemoglobin concentration [Mass/volume] by Automated count 31.7 g/dL 32.0-36.0 [facility] E[facility]th[facility] distribution width [Ratio] by Automated count 16.3 % 11.5-14.5 H [facility] Platelets [#/volume] in Blood by Automated count 352 10*3/uL 150-400 [facility] Differential cell count method - Blood [facility] Neutrophils/100 leukocytes in Blood by Automated count 53 % [facility] Lymphocytes/100 leukocytes in Blood by Automated count 27 % [facility] Monocytes/100 leukocytes in Blood by Automated count 14 % [facility] Eosinophils/100 leukocytes in Blood by Automated count 5 % [facility] Basophils/100 leukocytes in Blood by Automated count 1 % [facility] Neutrophils [#/volume] in Blood by Automated count 4.15 10*3/uL 1.8-7 .0 [facility] Lymphocytes [#/volume] in Blood by Automated count 2.19 10*3/uL 1.2-4 .0 [facility] Monocytes [#/volume] in Blood by Automated count 1.12 10*3/uL 0-0.8 H [facility] Eosinophils [#/volume] in Blood by Automated count 0.41 10*3/uL 0-0.5 [facility] Basophils [#/volume] in Blood by Automated count 0.11 10*3/uL 0-0.2 [facility] Nucleated erythrocytes/100 leukocytes [Ratio] in Blood by Automated count 0 /100{WBCs} 0-0 [facility] ID Date Data Source [id number] 12/14/2019 07:52:[address] [facility] Name Value Range Interpretation Code Description Data Grace rce(s) Supporting Document(s) Albumin [Mass/volume] in Serum or Plasma by Bromocresol green (BCG) dye binding method 3.1 g/dL 3.5-5.2 [facility] Bilirubin.total [Mass/volume] in Serum or Plasma <1.2 [facility] Calcium [Mass/volume] in Serum or Plasma 8.4 mg/dL 8.8-10.2 L [facility] Chloride [Moles/volume] in Serum or Plasma 99 mmol/L 98-107 [facility] Creatinine [Mass/volume] in Serum or Plasma 0.39 mg/dL 0.50-0.90 [facility] Confirmed Glucose [Mass/volume] in Serum or Plasma 130 mg/dL 70-140 [facility] Alkaline phosphatase [Enzymatic activity/volume] in Serum or Plasma 239 U/L 35-104 H [facility] Potassium [Moles/volume] in Serum or Plasma 4.1 mmol/L 3.4-5.1 [facility] Protein [Mass/volume] in Serum or Plasma 5.6 g/dL 6.4-8.3 L [facility] Sodium [Moles/volume] in Serum or Plasma 136 mmol/L 136-145 [facility] Aspartate aminotransferase [Enzymatic activity/volume] in Serum or Plasma 43 U/L <32 H [facility] Urea nitrogen [Mass/volume] in Serum or Plasma 30 mg/dL 8-23 H [facility] Confirmed Osmolality of Serum or Plasma by calculation 290 mosm/kg 275-300 [facility] Confirmed Creatinine/Urea nitrogen [Mass Ratio] in Serum or Plasma 77 [facility] Confirmed Bicarbonate [Moles/volume] in Serum 31 mmol/L 22-29 H [facility] Alanine aminotransferase [Enzymatic activity/volume] in Seru m or Plasma 128 U/L <33 H [facility] Anion gap 3 in Serum or Plasma 6 mmol/L 8-15 L [facility] Glomerular filtration rate/1.73 sq M pre dicted among non-blacks [Volume Rate/Area] in Serum or Plasma by Creatinine-based formula (MDRD) >6 0 [facility] Glomerular filtration rate/1.73 sq M pre dicted among blacks [Volume Rate/Area] in Serum or Plasma by Creatinine-based formula (MDRD) >60 [facility] ID Date Data Source [id number] 12/14/2019 09:14:55 AM [facility] Name Value Range Interpretation Code Description Data Grace rce(s) Supporting Document(s) Magnesium [Mass/volume] in Serum or Plasma 1.9 mg/dL 1.6-2.4 [facility] ID Date Data Source [id number] 12/14/2019 09:14:55 AM [facility] Name Value Range Interpretation Code Description Data Grace rce(s) Supporting Document(s) Phosphate [Mass/volume] in Serum or Plasma 4.7 mg/dL 2.5-4.5 H [facility] ID Date Data Source [id number] 12/14/2019 04:08:21 AM [facility] Name Value Range Interpretation Code Description Data Grace rce(s) Supporting Document(s) Glucose [Mass/volume] in Capillary blood by Glucometer 90 mg/dL 70- 140 [facility] ID Date Data Source [id number] 12/16/2019 08:07:41 AM [facility] Service Cmnt XXX-Imp : NoneMicroorganism XXX Cult : Greater than 100,000 col/mlEscherichia coli Name Value Range Interpretation Code Description Data Grace rce(s) Supporting Document(s) ID Date Data Source [id number] 12/14/2019 02:31:05 AM [facility] Name Value Range Interpretation Code Description Data Grace rce(s) Supporting Document(s) Color of Urine [facility] Clarity of Urine [facility] Specific gravity of Urine by Refractometry automated 1.017 1.003 -1.030 [facility] pH of Urine by Automated test strip 5.0 5.0-8.0 [facility] Protein [Mass/volume] in Urine by Automated test strip Neg [facility] Glucose [Mass/volume] in Urine by Automated test strip Neg [facility] Ketones [Mass/volume] in Urine by Automated test strip Neg [facility] Bilirubin.total [Presence] in Urine by Automated test strip Negative [facility] Hemoglobin [Presence] in Urine [facility]uk[facility]ase [Presence] in Urine by Automated test strip Negative [facility] Nitrite [Presence] in Urine by Automated test strip Negati ve [facility] Leukocytes [#/area] in Urine sediment by Automated count 399 /HPF 0 -5 H [facility] Erythrocytes [#/area] in Urine sediment by Automated count 11 /HPF 0-3 H [facility] Bacteria [#/area] in Urine sediment by Automated count Non e [facility] Epithelial cells.squamous [#/area] in Urine sediment by Automate d count None [facility] Mucus [#/area] in Urine sediment by Microscopy low power field None [facility] Hyaline casts [#/area] in Urine sediment by Microscopy low p ower field 2 /LPF None [facility] ID Date Data Source [id number] 12/14/2019 12:39:09 AM [facility] Value Range Interpretation Code Description Data Grace rce(s) Supporting Document(s) Glucose [Mass/volume] in Capillary blood by Glucometer 114 mg/dL 70- 140 [facility] ID Date Data Source [id number] 12/13/2019 08:08:03 PM [facility] Value Range Interpretation Code Description Data Grace rce(s) Supporting Document(s) Glucose [Mass/volume] in Capillary blood by Glucometer 97 mg/dL 70- 140 [facility] ID Date Data Source [id number] 12/13/2019 04:14:29 PM [facility] Value Range Interpretation Code Description Data Grace rce(s) Supporting Document(s) Glucose [Mass/volume] in Capillary blood by Glucometer 81 mg/dL 70- 140 [facility] ID Date Data Source [id number] 12/13/2019 03:08:26 PM [facility] Value Range Interpretation Code Description Data Grace rce(s) Supporting Document(s) Discharge Summary [facility] MWXLDj0oKtFYSzOz30/FBQtjKTPvd5JrYOjrRKc1HMonWDZaC5AkRTD5hS3gUXX1MUrFRzIzXqVgMcZ5 lbm [file] jay [file] Q2RiRTLDRnS183v0lc3WLQNdn/7p1auOJ3tp/pBZ82uNT5u/yiatf6/[employer]/TPPrWrp27/ngSf52I/F16L [file] n8e5+gNa9S6Ftwq2KU1tplf9ZYYKuHLN0xeoNh+Willian JyGPgeaaKe0ipd3vyt3vOg+bPu/R0aZm/Jrhs6TU/GOpll70m5oBrzkBVP5BftCov7gShFFrTcqW/SNH CMEUmXWI0Oifobs+Z8IdxJ5YYGW1p0x4rFOe3NMd4yaTBXJzS7wAJQMwpdUoqpuaqf7fJWWAqxqRS6jb JtbjVA+BgnLeKt+fY6Q/Hw+Ehl5192PBmwgSkdo4P0 nw3bq/nYhlqH+FFxYHuh7LAt3Gutw+4/PhRAJ8dTlcVZ50Aq1Tk/zl3RWs72v299JXJ9AuJ8U7CnT7yN 5V5iZ7aNWVeoylFlk+W+gtOiZI09s9Wd+yw/E7kv79bt9915nbpMHp6cr0xOLy9/L0VJCghsu/xL9+6c Kfkpk73t/dA8Z1dEpuqpv0DnnxYHHVoZ6ncJ2sur1+ v0RCjglR3NpcAldMYcuFEWimSRxjUvqP4zF/+wUQ9DNqPia2L5ZbXiry6F7MALuc5uYCoLq8tFvlrH3j 8VLny/Pi24PQWS4h08ZLmjXUj/F2Q9TG9xTl+tdvzDaF3TGWmPx5BQd0cdLMHd3435azRVl/bb0vq8is gibson+U6+/9N2/J+2y3/zxK1K2oV4h/Bkhmd5mVlIwiFT +RbFnQxwIjL8BECqGlV3Z/sd3M/WVOgyd2fxPFAzreo+Yl2a8/wJVinVLT2vlU5hnvAdTSg8CZX3Mzcr 8UA293go7o2YF4kb9B3p8/b6HO/LiLyeS06BuS2mPqHprb7EH+yMkMv1esieH2S0x69+q3piI9tlWA9r 8O5jlJST+br1W+Zy3DRK0c+V08MHJLpeIjw6JXh4eY 2ng8MS5iU0bUmD6+AB6fUOt4bbjiX7tbA06H21vaooHCn4dGae3eX+zkh9XBnovneXjc3H7ZZgdp6Div gSjOr4fVlR7wWvt5PPaxotG04sp8H6S9z2Ff+J4tvFttvvtAga94w/hu/TJPqVXtxJc4kPoV47cz4h55 dT+0uzoMc/IJ+6+6F8cokJmfNsW0dFRWvlfHRtIiCJ E6F7a2SraZUFrxVCCP5kXJEtJT26vMvXllz6Ux3r8oJx8P0VaOKArNnG12ruYr+FfvIT+AFNh/8NUANr xgVsJa1lgYKuhs13mudrO9qzH0rrfBtfl3Lb9Pfve8zTLA3vo6qamnVtxGzHvOZ+MdLtstfvvK/A/director gift [file] AgICAgICAgICAgICAgICAgICAgICAgICAgICAgICAg HFEeTSBbISJrUKGoAEHwQBFtGMMfXPFkFCFeEGSxMIObUXLoBJZxWRLmLZTlXIAcKKYhCEChTWGpRT4Y ICAgICAgICAgICAgICAgICAgICAgICAgICAgICAgICAgICAgICAgICAgICAgICAgICAgICAgICAgICAg ICAgICAgICAgICAgICAgICAgICAgICAgICAgICAgIC PhSOEfYMPiNU1JXQPsNJVqSVOvTVAxFFRqGLPkTMRkDCNuLLPnUNTaFKRrVZUyKXMjRBBrNOXnGCUiUL YtMAReCXArIWCgXMXvDOUlAWPxWLWgICAeTFAqFFBoIPPiCTSyKFAhXVPhATVuQDHrAI6HNRCsUJThJN AgICAgICAgICAgICAgICAgICAgICAgICAgICAgICAg ICAgICAgICAgICAgICAgICAgICAgICAgICAgICAgICAgICAgICAgICAgICAgICAgICAgICAgICAgICAg SS6KWDNbXQEnUOOfPXLfLGLnJKMpYCBeZZHnPTXcBQXuWWOeTWDvNCSsMBVqLMUmONFpBWJvEFNvFEDl ICAgICAgICAgICAgICAgICAgICAgICAgICAgICAgIC QsEDUuKHEaVJFiJI6MFEGkQJZdVKUjMMGjMKLrAUZbNQGwGIWpOXPiYKUmOCAjYIGnRGXgXGTbCFGuPL CsMMTwQGVjIFFcELBzNRHeCJCcFTBqPEJeUURwTBGiGIIkEJUhUWVwGYCaCCAdGXTeGZPbGT1HSZNkOY AgICAgICAgICAgICAgICAgICAgICAgICAgICAgICAg ICAgICAgICAgICAgICAgICAgICAgICAgICAgICAgICAgICAgICAgICAgICAgICAgICAgICAgICAgICAg YZNxMZ7YMEJoEBXeXJYzOBMaENRiZKXqFUKdBZPhWGOxZCMnYMVcZWXzMMVbGFFjGTXaVYLpOCJfAIKo ICAgICAgICAgICAgICAgICAgICAgICAgICAgICAgIC HrZCWnIYIoDJOtYKKkJM2WLOFdGGIsXJNbDRQmEJLeGMWaVLNxTTFfDIUiCTNlBBPvSJHtDDJeURQcXL OcDEFdFOHaUPTrOXWeEBFxVWXhLFTwRCNjXTGdHKCrSFEnZRJgQWLtSWGhYQApVKVuLOFmYXHuGG3EFU AgICAgICAgICAgICAgICAgICAgICAgICAgICAgICAg ICAgICAgICAgICAgICAgICAgICAgICAgICAgICAgICAgICAgICAgICAgICAgICAgICAgICAgICAgICAg MKLaNRTjDN3LWY11aDWcl8R9JULnLM3gvzu/Er4KPZklgbQwyZYuCT3EBkYaZT0qzm0FClMtGC0waf3V OJlCFrLzW3I3vQPaNDTjPVVYPqPfY65mBXdhAl77QX qrVABkApBzCXe3Wk3EHcBuG8ghAFUqLdS8QSMlOdI5VYVsNmM5WRAyHzVrWOVqQKWuWTVcMXTROCR5EV GhYrXkFdDrNAXwNEbgVXCZBTXuBFNqSbMcElBlMGSaZzHfYURVNNG9ZYGeKgDbELXnUZVaHcSsYDPMVI KjEUXcIxCgIGduDY3Vz2AmxTOvFL1JYk5BJiQgCL5x bg9REJNvXIQsZvnCAyo6NKrtLO7LlKZjvID2MhWnXNAHKwDgK3xfy3UjQTZaEPBLGVlqXD3Fb5AwbTWu DQo+Vt9FVA7zf1DlAQt4VnFaXC4ymz5HOFjKCeHnJ9HbhQuaDCQnr3PlTXDiFOVEgJ2pWXJ4FVP1SFat lKseND9wCGPRHER3CBAAZbGpeHJ2LoV5AhNoVhAaBC Y4QTUqCP8kTCtjCV3AJUQ9WMfqUHExSCAaJ6hFUjRkZVAeZaStzWyoYO3KFoJtI0HplgZrkUT8SeWaQH INCj4+TUrjtfDsHucUGmS4GPEqz2GzIHy7LN2VBKPhSBtiRP2SPNUqmD4yNWenOO2QRvF2HVVjTKIXLz XpR05gbEMoENb4A1NnIkMqWTDwKqqkLXIaAYmtAjWy ZXMgWyBdDQogID4+ID4+RSkpBY4CDMmkowHdDTUuGy2FLPMuGGCqRW1jFAXrQBPxP2N8uDzuKMKVGmIl C2mtmqzdSF1pPOBfR597eTqeipWaNSZxJRZgLj4YUWNlKEO9EQNuaWIcDHBsACAEFMmvME9ZfWRcKVD1 aE5bDTmhCSJiBBGvX4eDHxIszHxpLE01sOkofqAicO BdDQo+Eq5WFT4wi7WcATq7feBxGNsiEZO5FLehSTSqXBMnBBPyICK8YRZ8KLDDKlCzERDeFYPfBCyxHQ CgMKCtdp3GYVDcBDN7IjY8HsOpYDTpHVZyBJfjOHUsFIX4DHjwAZFmHCUlIJ0XMmYrDUKjCHGwIWzxJA QfKKTqbb8NWXBhTJXaVuFjSOVqLREaWDMkLCjnGJBb QIYyVxC4NFSfXFFyTG7MOkPyDVFyXJnvWIWlATHxZGEtdn1JJMLmTEUtNlTqLGNiINNmNQXhLFgoFBPc GTU8URY5DJRiTZUsDV3FMwIwMLIaRKWiKNUpAXSyCMAdyp2BEYPaUXObFcEdDkFwMWZpKZBxJIzcDLBk OKDdJOJ3ENNuBXMbRP6OSeLvGTPkKYO6YFMhUPIgUQ Rohe3RWGHsWRWqIPg3ZLLxXDYaCCOoDEvzLFCgNYP3YWL8XWOaSWZiRM9PFrUgCFWfFTehCjGiYPCsDL Zzfk4IYZPfCGVzPcA7UaNnMZWfHMZjVXhtXWQzSAHtBAQ1VFEiSIScTS8CLuGeUYHwOrRwKHFkJLHgZH Aqpf7MERYyRQCpYgK5SLXaBCPqFKBcARzhMZQhAMW6 RYr0DRYpNMRmEM9FNiLuVJAmTetyFTZyCTZxZJCeya8CXLUyBFPmQbH3OxChHOJsIXIcGMynXAEaKIGy ULubHVHvVTAnWA1UXpNxNMWjQuXhYQVeIOYjLSDptg5OABUlOMEwYwO3GMFjYIImPIAdFYmzILPvVDF4 MHH1HMTyUBBnST7CTuRdHFUxTpvgRfOxCRXuCAAmec 1OHCXePTE3UOlkRkFjNOGzXDPpBQivYQGzFOYeHIH2WRTuAHXyYT1PMqOcGEVxSTB4RUZnKYJiGPJelc 6ZNEXoOOQ2UVq0PLIfBFRyJJEfALkmFUIcQQY5LZboBJPbWXTbAP7OXfFdIUPnMLQvXkgeBCSnYEKdbs 9RATZqKNC0HjXbOkJkZSFsVMBoRCpzDOEwCAO6YAP3 HLBwWTDsEC3UCsSvOQToNBu7WUktBIPsUOWxql2MIOYhUFN1FHF9IoNqSRNnIZSqOVxrZKPvXVE4FYv4 YTQxMWNkOJ8PNzWeYRLhZXksJaDpQYExXOHomm8NSWDyJAO2NXV0WZHiGBCaXGUnNOenXTXmMJPwUpL7 FQQsVAYkMJ2BRkYeRUCaLxL4TicyTLUfREKbis1YLR JsTST9DAMxRmSpPDNlPNPlTRnvUPRjLRLyHtYxMLKtRFFlZW1UDwIfCZAcWyAqMMerMOVzAFLdeg5WNZ HgIKD6LtApEyLdGFHtVRNvNLrhBCOhGYH2KwV7YTKoJCZcRT3IPiZyOGFuBxO4ZUgoIPLnSBDpmx6AGH MbCEN8JiNrWSPtTYMkEBTsSXnwHHQoITX3BTRyKTAk SQOsFF1PEaYtVYQvVlnzKEirLQZhDDNgea2ZSQUxVZX8VDU6HORzLCNuARAfLLipWLXtUMH8DtQuDDXt MHGzRA6CWzUoVFhfSPRPBbq6NVqfU1x1LHK6ON3UD3Yky9NyYYNtOQCHDIkeVZ1jnnVfHWVvCd8UZ2pD XzwsUCGqCrXaXCJoACD5HEM8GOSuIXUhHEtbKXjoKi Z2IT6mXVH2K3WlLBIqPSUiEGM6BPlvHTChNDXcZAMpY9QmQOY8VvVzUD3SPi9OZsI3TKN7vZXwPj0YMf u3ZIJRMaUvEN7STEm= ID Date Data Source [id number] 12/13/2019 11:59:34 AM EDT [facility] Name Value Range Interpretation Code Description Data Grace rce(s) Supporting Document(s) Glucose [Mass/volume] in Capillary blood by Glucometer 89 mg/dL 70- 140 [facility] ID Date Data Source [id number] 12/13/2019 11:21:27 AM EDT [facility] Name Value Range Interpretation Code Description Data Grace rce(s) Supporting Document(s) Consultation [facility] WGEKAo8dSbIFTaHa93/OMTmqRRFnf7WaIGslASv3JKuzYMDeS6IjDBH7eD2hZAG7SRrCNiUyMmXzOnQ0 lbm [file] ICAgICAgICAgICAgICAgICAgICAgICAgICAgICAgIC GsNYTfRBIsGNOsFHLqCCUwANIfNRWlAFXxIQGnCEVoJJ6FQRXoITNgFTWkWJUlDPNdMXWyAYGbEVAfEH AgICAgICAgICAgICAgICAgICAgICAgICAgICAgICAgICAgICAgICAgICAgICAgICAgICAgICAgICAgIC AyKYHyMAVlIVHuLSWtXN6MGQLgCSCwZFRcNASpMIEn ICAgICAgICAgICAgICAgICAgICAgICAgICAgICAgICAgICAgICAgICAgICAgICAgICAgICAgICAgICAg KGMgQGFkOSWoVKZeGODdKSStATGeQTWkSU6BNOHzFZRiSWNbPJQnCWCuFFWqHEZdZQWaLYRgWUFkRAYp ICAgICAgICAgICAgICAgICAgICAgICAgICAgICAgIC RnBTTsVAShIADxRHUyGDWrBIItEBLdVDWvTWQvPNNkGRWrHF7MTLRjQQGzWSDpZQZcQZAmWXZzXSCsCG AgICAgICAgICAgICAgICAgICAgICAgICAgICAgICAgICAgICAgICAgICAgICAgICAgICAgICAgICAgIC QfJTOdQMRfASDtRUCuBJWhNY9LTZSfWOEbKXLsZNMi ICAgICAgICAgICAgICAgICAgICAgICAgICAgICAgICAgICAgICAgICAgICAgICAgICAgICAgICAgICAg UFVsFEDbDOKxIVUjRELgCMMfYYRxUEVsDHJlVX8VIODpTTDdRWMuTTNeSAMqXGTqTFMnDVGzLAThLWQu ICAgICAgICAgICAgICAgICAgICAgICAgICAgICAgIC EdJJGhSLGcJAZnZTDuXBWnJPLoODEbJDJaEGSsZITuJELjNEXdYX0YGZMfLZXaAYBbCVCvDDVcOEQjPF AgICAgICAgICAgICAgICAgICAgICAgICAgICAgICAgICAgICAgICAgICAgICAgICAgICAgICAgICAgIC IcFGOsZXBsTWVvTWZoIEOmWDKwNJ7RFOTxGCBpQZAq ICAgICAgICAgICAgICAgICAgICAgICAgICAgICAgICAgICAgICAgICAgICAgICAgICAgICAgICAgICAg TVNaAYTtQLJyFAQsXLIfAWGyXGErJJPaZPCpCPPgYW8IWEReFJFoNYAgIDBxIXRnEUUyYQRsQULeLZGp ICAgICAgICAgICAgICAgICAgICAgICAgICAgICAgIC AqQNOoRQViPTFnNOJxNOXgYYQkGJUsRNHqSOStEOGfFEDlYWCiURElCM5VSJ09lNLdp6U7TBGgJV3wnm c/Fk8KSVvnofTgjAWgUZ8JQwPwOR9gfy7VEcEsGS7yqy9GFDeSQwYrH8B8rYFrSKYrWQKGQaVoD01cJH lxLy91USzuAIMwSiDoUBx4Mu9KTvZoI0utSQFpRlS1 QSYmSxQ1NWEhDvX8DALlBfChNKJxRJPwKCGbEUBDUGZ4QLGmEkDkFyOvREYdBLnoALFFRDRoCLCtAfTt XdRrKUBnNA3VHXNrC011jvBkYSRJVi0+YCtkgxJnIuhBQpZ4LUPdc7QhAQd3HW6UXHIpPzhsg8EbHWSo TWFHBObpKD1AUEI0JIA7STGrGh1WKGSuL818gzPxQX 3MPi1SDmDiMG1owz3LCBXqLEGcHfkJHiu9DFxbAV8JoNPbVLqNd40oqBz6voWydPWRbZWjoADprJMzUX ASRCnmlINnqUqxWl3sIOHbEf8gJU4iOHIcJSTcXdYjRKFZSW6KKIViUISxbBJdPFJaHLWWKH6NZWnbLU F4OZFuzqSefFVbDKqmOH6NBIRkxzSvVZSuHFAOIGt+ Fn3AMV9qs5RcTBh8IlJpFN9dqp7PFMoVRqEoE9I5zBUrG9A6MKzpXj4AELTvFOAnRDQzLWINJFcrRS0W NJ5osiX9JE2PlXYjQARaMKMpbPXpZHm0R68zmMTcPMweLL1RQYE+Alise+Cp4SHIAxWIQdBOPwFnNiQXJW PuEvE3NhR5SAc3NfM8BpLH37eRfmcfOaTQcmRO3CUS 1kWFOoYQSQPT8YsFLthQ1dzbO5XGVfEQXVZbKnA22ucYDbNDInISY7GNWvBe0BRHVfY6SzdgEggCiema FoKHPjNQAOVK0CEFvcfeZbhYMuqQljGS25vCraJG2KTc0QPvBzOU4axi3TkDVpFk6MLBO8PU6CSOMjXN KjAIIqOMY9UWLvZtJsZAdxXGNdJSNnIEH2ORNzELMa YN9QRfNdCVWwHvQ6NDYeRBBbHSJrgb4SREQmLUR5DxO4TPHgLSNxZPAcGGjaAZFhJGWsRHR1VEJhPSMu PX8RZgZwUQGcDCQiJyopUBItQYLcnq7UOHNpXCRwSCO1XoQfQRUtGMSfHNtkGZVhLDB4MZThFHYyIKWr NT2TYlQfDEXrIQs4OTtgJFKpRGObtl2QXFAyEGDjPi D3LATsEQJyMCTiMOdwVXSyGLEgHzF8TQAdAWPoTM0CBvXkWSBpTWw5COSdDSYdYCUbez7XZQAgKGZvRR Y2VkTbTOYiCFHoUImtKRUwUOHcOqG3YKRvHHQzIQ5KUxXlBNIhFjW0BYGjKSLbZYBmqw3LJEObZPObCZ pnPdDbPLHbJPYqIGpnMGYaQBX7ITR3DETrVINtNO6K QxEuCIVpCayxQSjrAYFvUCYgsp6WMFVtPTZfICIhJRMtGHBpMJReFXxuEKAiKSAfWQJuBHImNLZuLM2X CgXlNNPzFwO8KwCdEQLqGZCnkt5DNXHjBLGfDyM0ILKcDGFvJMFkICvmEPJgCIV1MivuSPAzQXIoJZ5E FnHxOITeSyv4DHxrBQRpIWYwau6LUFRrFIDdLSG9Mx LwPAKnHTHmPQerAFMeUNLcCwPnAFHbZDKeDK9HFmZwRJCvBYD8IXFlURYrRJLctl0BGHJrHQG5ETOqXx VeIGTlWGIxEGgcEOOkZBReOJtwEXCfWENlPD6SQaIuGEWvWVXaRCZfTSCnDHPkyf2TTROjCPP4ZcK4Ue MkSJCyHUZlWFhnLUUdXTUeZqYxUEZaPTZyJC2NJhYg ASUpAAI3HvvmRTJaPFNiit4OLHYhFNG1PphaLsLsXDCmGBBzJBkkPSPoUBT3NHg7JAVjCOQpDR4PBoHv FMIySQp2TODeKIMhZDTwlz9VOJEeFKA0ZZGnPzLeMGUuZKEmAVilGYRrJEB0YxP0QUXuGCVsMW3AGzTb KYFkHXc2DMDbLJUqHIOolu7OSMGkYSO3LEh3HKOwII LiMQNxMNsaGFTlQAApQHp9RPGwSFTdLJ4BFuQeAYPwVpK8MKOfNNDxIGRoqs2XNULmDEI3POR1WUVjXR FnTYRtYHenARHkHJWaYokiXECdVDHcJC2JUaQoCYAkBhJsMuPzJKEqERFacl9XGWKmXUR7GgxtKPZlVP IzBPKtSVwoHRChPXKlXvi9FTLnKUDaJJ1BFmOhMVDv LkL4MNEzYOThAUAaiy4BfDSryJldjb4VKJhGJf3ZiXtyDQF5FRvjEb2rdKF8NpTdBNSUPb4WorNsZZIm TZXPIBhqZUEnDLV8QAvdV9C9AuV0ZQRdOHIgChJnRdQ5OWQ7N6FrZhJjEyI4AXquX2CnNPceVHGyOmQd RNYvULUxIDI6MxhcOfY3FJA+RJ1fCPf+Gb9Rv3SfulI5zfSkFPr5XYE7BD5IWMMXL5RGUw== ID Date Data Source [id number] 12/13/2019 08:27:41 AM EDT [facility] Value Range Interpretation Code Description Data Grace rce(s) Supporting Document(s) Glucose [Mass/volume] in Capillary blood by Glucometer 94 mg/dL 70- 140 [facility] ID Date Data Source [id number] 12/13/2019 05:01:15 AM T [facility] Value Range Interpretation Code Description Data Grace rce(s) Supporting Document(s) Glucose [Mass/volume] in Capillary blood by Glucometer 131 mg/dL 70- 140 [facility] ID Date Data Source [id number] 12/13/2019 05:03:51 AM [facility] Value Range Interpretation Code Description Data Grace rce(s) Supporting Document(s) Magnesium [Mass/volume] in Serum or Plasma 2.1 mg/dL 1.6-2.4 [facility] ID Date Data Source [id number] 12/13/2019 05:03:51 AM [facility] Value Range Interpretation Code Description Data Grace rce(s) Supporting Document(s) Phosphate [Mass/volume] in Serum or Plasma 5.2 mg/dL 2.5-4.5 H [facility] ID Date Data Source [id number] 12/13/2019 12:37:40 AM [facility] Value Range Interpretation Code Description Data Grace rce(s) Supporting Document(s) Glucose [Mass/volume] in Capillary blood by Glucometer 135 mg/dL 70- 140 [facility] ID Date Data Source [id number] 12/12/2019 08:47:41 PM EDT [facility] Name Value Range Interpretation Code Description Data Grace rce(s) Supporting Document(s) Glucose [Mass/volume] in Capillary blood by Glucometer 110 mg/dL 70- 140 [facility] ID Date Data Source [id number] 12/12/2019 05:32:11 PM EDT [facility] Name Value Range Interpretation Code Description Data Graec rce(s) Supporting Document(s) Glucose [Mass/volume] in Capillary blood by Glucometer 138 mg/dL 70- 140 [facility] ID Date Data Source [id number] 12/12/2019 04:32:46 PM EDT [facility] Value Range Interpretation Code Description Data Grace rce(s) Supporting Document(s) Glucose [Mass/volume] in Capillary blood by Glucometer 126 mg/dL 70- 140 [facility] ID Date Data Source [id number] [facility] Description Data Grace rce(s) Supporting Document(s) [facility] HYQOEh7rLfPJJwZj52/OYZqaISVar6NsROdhCSp1FKvwYDVnK5EeWYM7qF3iMTU8NUuGQmMwYuFkGyYy [facility] [file] AgICAgICAgICAgICAgICAgICAgICAgICAgICAgICAg ILKuYCSkOLDsBWCfZUZmSALmMYUgYVMaUFSiXIFySFHdTGJaNXTpSKCzIZNfSQ3RXLLcJRXmGDTwVDZc ICAgICAgICAgICAgICAgICAgICAgICAgICAgICAgICAgICAgICAgICAgICAgICAgICAgICAgICAgICAg ZSIgKMKvIKTvUBUrENDkZEYcGGBoDPMiMOFrWM4PBT AgICAgICAgICAgICAgICAgICAgICAgICAgICAgICAgICAgICAgICAgICAgICAgICAgICAgICAgICAgIC AvGTMsLVZdCSYdHFJpKDKeAVYrGLQbSCYxLHYhXXYgTEPxINPvOZ7RMXYyCNSdZGSiTDGyUBFmFLLrPW AgICAgICAgICAgICAgICAgICAgICAgICAgICAgICAg XBQfTOMbKTDaHVDzPHHmVKOiCYWbKNAhJPJzEJVtOPLwMBQxWYCtWEUwYDIpZMHzQF4KXOTdIBRkWDOm ICAgICAgICAgICAgICAgICAgICAgICAgICAgICAgICAgICAgICAgICAgICAgICAgICAgICAgICAgICAg ICAgICAgICAgICAgICAgICAgICAgICAgICAgICAgIA 0KICAgICAgICAgICAgICAgICAgICAgICAgICAgICAgICAgICAgICAgICAgICAgICAgICAgICAgICAgIC WiXWDsZJAoGHDqYAFeNAUtSKZsSXIbPSUoTKZqVXYkGQQeLXRwPESiRN8HGXPjYAUeYYOzKSAaPODnEC AgICAgICAgICAgICAgICAgICAgICAgICAgICAgICAg MJXwPOFmGFGeCVEgTJIeYGOkALRnVCDfTIHvEXZaUTPjERTxZFTwIHLqOQIaPGXzIERsAE3HOEBjUCBt ICAgICAgICAgICAgICAgICAgICAgICAgICAgICAgICAgICAgICAgICAgICAgICAgICAgICAgICAgICAg ICAgICAgICAgICAgICAgICAgICAgICAgICAgICAgIC MgFB4GMKOdEJJtHZYpCRLeFNJqWQHxYYIyBJUxUDLyRSKlXZQyQTEvPCSgXNKlNUIrQLFzVBRcWLGnGK KdQHHzSYUfGSUnXPImSUKlSYIkZSCfHLXlXJFoRHNnQVIqIZBtOHWdILCkST8JGBToRCMhJXHtKKUgKY AgICAgICAgICAgICAgICAgICAgICAgICAgICAgICAg JZYqEOQlKUUvPWEyDEUiYFXlGWZgIKIrAQTsKGHpJLKvSVXgNNFbPZFhCPHnEOLyWGRrNFAiEQ8PJI97 dGEcu2F6KCUcSD8jzth/Wg9OSXwedeRqdINoKT8ODfBuOH6rzh4XRhRfRZ2vgh0DFFhGBhJgI6Q8uBVc WPRlKNVRQcXuD12iSYqfXu03XXbuNLWgSoRaCWf3Yn 9JQvSfD3nhNGSjYvK2LBPmUvZ6EDRsMgZ1FUMwZwTbCZRjLKJiDHYkHKEHYGG4FEJsLeTpIeXiYDNnUT hlOHHBSBOqVJOpKxJfIkToVDSaCZ8SNITtX640lpZfOIDPKy9+CMcuofCqAfwDWxR6BBSkf5OfUCa8RX 5GPCBxUzruh9IhPHVkUBYURFxmFS3HGQC5HCR6LVIn Pf4EJZHuJ554dzKvAX6EVj5WWpHyRU0tem9UEBHtUDZvSrrGOmn8JSnqSF3EaJJbYZpGd30rdNg9jbIx bUBAWYTvEFCEFA0yjiKmoxjoSAUdWJMxQp6eLv0rPJChBWMgSkE2SJBOQD2PQVOtGWNxcEHtFVUqROVM HM8TQKunMRR5OXKhdhIjaHBpHPnlWB0CNMOxnmWeGN UgMCBSDQo+Jb2SXW6kq6QzJXw3MpVoKE0xnw6AOJrIUrUqV1I1lWIlS1A6BYjuLl2ZFLHySORqQFNdRZ EIHTawWA3CXC7sruD3UV3BbXXnOYAcDJQtkLQuFZy0B94usKRvKXjlVK6HWYQ+Alise+Ay3DDFGqBROlCA TjInZwPPMERiCbT2BlQ6FLz6DvD0CaAZ34xEswnyRp LOoyIT7EBR7aGMVrTIYWKA3PoZOsrV9gusM8QJDiKHAJLnDiO56wxMSwDHHcMQB0IXCkDy3GPDPxG4Va cbDcsVxyjoSiBNHbHEAEYY3VAVtpqrRoiQUwnGudDQ51wZayAF4YPz3BFsQrUC0zxf4NhSFrTe0NGXQ3 EH3SMCUsWMQhDTAoYSA2XHIpErGsIJlmIWSzVFImZG S1BHAwXVKlEL2FEuHuGGJoFeXzHLIfIRCvHUUexa7OXFPlWFO5SLAeMyWhUDYnFNKoECwwAJNnADEzWY Y6GDXvETBwYB8SYaBqCJLqOOR1HqFcZKKyUYKgoh4YKLDdCBNpEFY8QUTjICRuXYMaUXkyPAUyFVZ5VT C4PWOlIOQhSM8ROyOgJKYmLUqoFtViNIXzFREzkb3N OSKrLTKbJrl0HYHkHKXlYEYkEUeoLIXvOTKmXEV9NBKqCXKaEI9LZzKrWZFpVYzpZpqrXPAoNOBqkn8P SNCwDNKaDZB5BRMsOMJrONSaDHgfZTVgHIJxMNS3ENPhJBGaML3ESyBiYQVzXvFzBJUfSNZtCVLcuh1D LCQuWVWvRTG5ZSEcKJMhGFPaOQkwGWJlFYG2DZz1HO HgFGOjWN8WXrXlJNHhUdq5LfNdNLTfRJYjvv6PJZCtWJGoUWwwBLEeULNwCJItXVweFEYcQPNmKNP9UO PtSFCsXS8RQfQzFVMnIkHbMlUnLANuEXCvkt5FEOCvAWJkPyV7MSNsMZNuMXKbDRakCIUqOWE1ReIwMA RnCOAvFW9BDvEpIVJuVhn8JXGjUYYlSZQhqr8WWEYu WZH9NUB3OGYnVJKqLAMgLIydGLKgNMOzVLMhZVCpHYNqFZ4LBjQdYSWvOLFkDQxoPFWsPGTzib2EBZQb MFA1VXGpZXOuAJXkVBSfKTjwHIWdNWFdBREzFRWiDCFfDR4YYxQqLGHxQLZ7HhBnXMFpNYDehe6DJDEa BZP1Ans5QRBkEQNoYFMcNYznJPQvQPRsBNJyCHCaXJ OpQA2WLlNzJWTqUNXkOZujOUQyJHDwkg7DODUvXCA8UDD9WANjRXTjRXPtFVueGNIlBGX2CKO6VRRcQB CaVM3MKsLaPJPsXTqpJiLuTGYqBEEmml9QGSUvWQR8MYQ6NHLmIESvHLGoOAxxCGUyRIW0LRJ3DHZjBW DvMD9IQuCwXFCmBJo6DdBoWNSpOXXbev8QVVIpHNZ5 TJV9EkVbIVMtIIImFRuuIUGvOYYqLtC7GAUkAZDlQT7HFoBvUGPnAlQ6HgTeJCLqYNEijs9NQEBhQVG3 OxVkAsMfTDQhIDIfWBbuZFIbDENwHeB7SBHlOSCpQZ3VGaLyMNCxHjU6IFMcCIQmKOUfjp2NCEXqWYV2 WSV6DoHmOVLrRHHmBDrnJQJsDYE2NaJtMUViQIEkKO 1OPhSuLGJwEjS5GNGbRMRgNHEkzb0VuDWctWxhph1DQTkEEj1IfDrxBPE8XHfaKi8fuBP7OdHrPSUIHd 7OmiLeDAVxKJJVWDrhHKFlDJDxRLmdOsr6QHLhVYJwAdX1PkBvKIM9CKKyQCXoQlAtRaB4HJD8H9RrQp L9TQL0JbF0LFRsJWU5IBI9IuK5EYL2MLB+IF0gDQ o+Rp8Bh6VddaA9qvJaBRi0XYE2PN1XJDBPG8WYVg== ID Date Data Source [id number] 12/12/2019 12:46:09 PM EDT [facility] Name Value Range Interpretation Code Description Data Grace rce(s) Supporting Document(s) Glucose [Mass/volume] in Capillary blood by Glucometer 138 mg/dL 70- 140 [facility] ID Date Data Source [id number] [facility] Description Data Grace rce(s) Supporting Document(s) Glucose [Mass/volume] in Capillary blood by Glucometer 108 mg/dL 70- 140 [facility] ID Date Data Source [id number] 12/12/2019 06:14:21 AM [facility] Value Range Interpretation Code Description Data Grace rce(s) Supporting Document(s) Magnesium [Mass/volume] in Serum or Plasma 1.9 mg/dL 1.6-2.4 [facility] ID Date Data Source [id number] 12/12/2019 06:14:21 AM [facility] Value Range Interpretation Code Description Data Grace rce(s) Supporting Document(s) Phosphate [Mass/volume] in Serum or Plasma 4.3 mg/dL 2.5-4.5 [facility] ID Date Data Source [id number] 12/12/2019 05:17:48 AM [facility] Value Range Interpretation Code Description Data Grace rce(s) Supporting Document(s) Glucose [Mass/volume] in Capillary blood by Glucometer 119 mg/dL 70- 140 [facility] ID Date Data Source [id number] 12/12/2019 01:31:43 AM [facility] Value Range Interpretation Code Description Data Grace rce(s) Supporting Document(s) Glucose [Mass/volume] in Capillary blood by Glucometer 110 mg/dL 70- 140 [facility] ID Date Data Source [id number] 12/11/2019 11:15:34 PM [facility] Value Range Interpretation Code Description Data Grace rce(s) Supporting Document(s) Glucose [Mass/volume] in Capillary blood by Glucometer 84 mg/dL 70- 140 [facility] ID Date Data Source [id number] 12/11/2019 10:25:11 PM [facility] Value Range Interpretation Code Description Data Grace rce(s) Supporting Document(s) Glucose [Mass/volume] in Capillary blood by Glucometer 84 mg/dL 70- 140 [facility] ID Date Data Source [id number] 12/11/2019 09:14:11 PM [facility] Value Range Interpretation Code Description Data Grace rce(s) Supporting Document(s) Glucose [Mass/volume] in Capillary blood by Glucometer 87 mg/dL 70- 140 [facility] ID Date Data Source [id number] 12/11/2019 08:32:13 PM [facility] Value Range Interpretation Code Description Data Grace rce(s) Supporting Document(s) Glucose [Mass/volume] in Capillary blood by Glucometer 65 mg/dL 70- 140 [facility] ID Date Data Source [id number] 12/11/2019 05:04:43 PM [facility] Value Range Interpretation Code Description Data Grace rce(s) Supporting Document(s) Glucose [Mass/volume] in Capillary blood by Glucometer 131 mg/dL 70- 140 [facility] ID Date Data Source [id number] 12/11/2019 12:44:37 PM [facility] Value Range Interpretation Code Description Data Grace rce(s) Supporting Document(s) Glucose [Mass/volume] in Capillary blood by Glucometer 127 mg/dL 70- 140 [facility] ID Date Data Source [id number] 12/11/2019 08:34:36 AM [facility] Value Range Interpretation Code Description Data Grace rce(s) Supporting Document(s) Glucose [Mass/volume] in Capillary blood by Glucometer 124 mg/dL 70- 140 [facility] ID Date Data Source [id number] 12/11/2019 05:41:04 AM [facility] Value Range Interpretation Code Description Data Grace rce(s) Supporting Document(s) Glucose [Mass/volume] in Capillary blood by Glucometer 139 mg/dL 70- 140 [facility] ID Date Data Source [id number] 12/11/2019 05:22:42 AM [facility] Value Range Interpretation Code Description Data Grace rce(s) Supporting Document(s) Magnesium [Mass/volume] in Serum or Plasma 1.9 mg/dL 1.6-2.4 [facility] ID Date Data Source [id number] 12/11/2019 05:22:42 AM [facility] Value Range Interpretation Code Description Data Grace rce(s) Supporting Document(s) Phosphate [Mass/volume] in Serum or Plasma 3.7 mg/dL 2.5-4.5 [facility] ID Date Data Source [id number] 12/11/2019 04:07:49 AM [facility] Value Range Interpretation Code Description Data Grace rce(s) Supporting Document(s) Glucose [Mass/volume] in Capillary blood by Glucometer 136 mg/dL 70- 140 [facility] ID Date Data Source [id number] 12/10/2019 10:56:16 PM [facility] Value Range Interpretation Code Description Data Grace rce(s) Supporting Document(s) Glucose [Mass/volume] in Capillary blood by Glucometer 100 mg/dL 70- 140 [facility] ID Date Data Source [id number] 12/10/2019 08:58:23 PM [facility] Value Range Interpretation Code Description Data Grace rce(s) Supporting Document(s) Glucose [Mass/volume] in Capillary blood by Glucometer 101 mg/dL 70- 140 [facility] ID Date Data Source [id number] 12/10/2019 04:15:27 PM [facility] Value Range Interpretation Code Description Data Grace rce(s) Supporting Document(s) Glucose [Mass/volume] in Capillary blood by Glucometer 134 mg/dL 70- 140 [facility] ID Date Data Source [id number] 12/10/2019 12:47:17 PM [facility] Value Range Interpretation Code Description Data Grace rce(s) Supporting Document(s) Glucose [Mass/volume] in Capillary blood by Glucometer 132 mg/dL 70- 140 [facility] ID Date Data Source [id number] 12/10/2019 08:19:18 AM [facility] Value Range Interpretation Code Description Data Grace rce(s) Supporting Document(s) Glucose [Mass/volume] in Capillary blood by Glucometer 129 mg/dL - 140 [facility] ID Date Data Source [id number] 12/10/2019 05:17:24 AM [facility] Value Range Interpretation Code Description Data Grace rce(s) Supporting Document(s) Magnesium [Mass/volume] in Serum or Plasma 1.8 mg/dL 1.6-2.4 [facility] ID Date Data Source [id number] 12/10/2019 05:17:24 AM [facility] Value Range Interpretation Code Description Data Grace rce(s) Supporting Document(s) Phosphate [Mass/volume] in Serum or Plasma 3.8 mg/dL 2.5-4.5 [facility] ID Date Data Source [id number] 12/10/2019 04:26:54 AM [facility] Value Range Interpretation Code Description Data Grace rce(s) Supporting Document(s) Glucose [Mass/volume] in Capillary blood by Glucometer 113 mg/dL 70- 140 [facility] ID Date Data Source [id number] 12/09/2019 11:35:34 PM [facility] Value Range Interpretation Code Description Data Grace rce(s) Supporting Document(s) Glucose [Mass/volume] in Capillary blood by Glucometer 118 mg/dL 70- 140 [facility] ID Date Data Source [id number] 12/09/2019 08:03:46 PM [facility] Value Range Interpretation Code Description Data Grace rce(s) Supporting Document(s) Glucose [Mass/volume] in Capillary blood by Glucometer 89 mg/dL 70- 140 [facility] ID Date Data Source [id number] 12/09/2019 04:24:20 PM [facility] Value Range Interpretation Code Description Data Grace rce(s) Supporting Document(s) Glucose [Mass/volume] in Capillary blood by Glucometer 117 mg/dL 70- 140 [facility] ID Date Data Source [id number] 12/09/2019 12:27:39 PM [facility] Value Range Interpretation Code Description Data Grace rce(s) Supporting Document(s) Glucose [Mass/volume] in Capillary blood by Glucometer 129 mg/dL 70- 140 [facility] ID Date Data Source [id number] 12/09/2019 08:40:40 AM [facility] Value Range Interpretation Code Description Data Grace rce(s) Supporting Document(s) Glucose [Mass/volume] in Capillary blood by Glucometer 125 mg/dL 70- 140 [facility] ID Date Data Source [id number] 12/09/2019 11:50:08 AM [facility] Value Range Interpretation Code Description Data Grace rce(s) Supporting Document(s) Glucose [Mass/volume] in Capillary blood by Glucometer 107 mg/dL 70- 140 [facility] ID Date Data Source [id number] 12/09/2019 05:33:43 AM [facility] Value Range Interpretation Code Description Data Grace rce(s) Supporting Document(s) Magnesium [Mass/volume] in Serum or Plasma 1.7 mg/dL 1.6-2.4 [facility] ID Date Data Source [id number] 12/09/2019 05:33:43 AM [facility] Value Range Interpretation Code Description Data Grace rce(s) Supporting Document(s) Phosphate [Mass/volume] in Serum or Plasma 3.6 mg/dL 2.5-4.5 [facility] ID Date Data Source [id number] 12/09/2019 02:05:18 AM [facility] Value Range Interpretation Code Description Data Grace rce(s) Supporting Document(s) Glucose [Mass/volume] in Capillary blood by Glucometer 102 mg/dL 70- 140 [facility] ID Date Data Source [id number] [facility] Description Data Grace rce(s) Supporting Document(s) Glucose [Mass/volume] in Capillary blood by Glucometer 115 mg/dL 70- 140 [facility] ID Date Data Source [id number] 12/08/2019 06:46:30 PM [facility] Value Range Interpretation Code Description Data Grace rce(s) Supporting Document(s) Glucose [Mass/volume] in Capillary blood by Glucometer 90 mg/dL 70- 140 [facility] ID Date Data Source [id number] 12/08/2019 12:32:27 PM [facility] Value Range Interpretation Code Description Data Grace rce(s) Supporting Document(s) Glucose [Mass/volume] in Capillary blood by Glucometer 117 mg/dL 70- 140 [facility] ID Date Data Source [id number] 12/08/2019 10:17:24 AM [facility] Value Range Interpretation Code Description Data Grace rce(s) Supporting Document(s) Glucose [Mass/volume] in Capillary blood by Glucometer 96 mg/dL 70- 140 [facility] ID Date Data Source [id number] 12/08/2019 05:12:27 AM [facility] Value Range Interpretation Code Description Data Grace rce(s) Supporting Document(s) Magnesium [Mass/volume] in Serum or Plasma 1.8 mg/dL 1.6-2.4 [facility] ID Date Data Source [id number] 12/08/2019 05:12:27 AM [facility] Value Range Interpretation Code Description Data Grace rce(s) Supporting Document(s) Phosphate [Mass/volume] in Serum or Plasma 4.0 mg/dL 2.5-4.5 [facility] ID Date Data Source [id number] 12/08/2019 10:11:44 AM [facility] Value Range Interpretation Code Description Data Grace rce(s) Supporting Document(s) Glucose [Mass/volume] in Capillary blood by Glucometer 107 mg/dL 70- 140 [facility] ID Date Data Source [id number] 12/08/2019 12:35:22 AM [facility] Value Range Interpretation Code Description Data Grace rce(s) Supporting Document(s) Glucose [Mass/volume] in Capillary blood by Glucometer 105 mg/dL 70- 140 [facility] ID Date Data Source [id number] 12/07/2019 09:01:47 PM [facility] Value Range Interpretation Code Description Data Grace rce(s) Supporting Document(s) Glucose [Mass/volume] in Capillary blood by Glucometer 87 mg/dL 70- 140 [facility] ID Date Data Source [id number] 12/07/2019 04:24:39 PM [facility] Value Range Interpretation Code Description Data Grace rce(s) Supporting Document(s) Glucose [Mass/volume] in Capillary blood by Glucometer 93 mg/dL 70- 140 [facility] ID Date Data Source [id number] 12/07/2019 03:07:44 PM [facility] Value Range Interpretation Code Description Data Grace rce(s) Supporting Document(s) Operative Note [facility] [id number]/AGMluTTXul8MxLSsnQKj3GAidQJYkW0DrKXC5wR5eJXK6UJyXWuBoYeIaSkC7 lb [file] [id number]= ID Date Data Source [id number] 12/07/2019 12:03:42 PM [facility] Value Range Interpretation Code Description Data Grace rce(s) Supporting Document(s) Glucose [Mass/volume] in Capillary blood by Glucometer 131 mg/dL 70- 140 [facility] ID Date Data Source [id number] 12/07/2019 08:30:07 AM [facility] Value Range Interpretation Code Description Data Grace rce(s) Supporting Document(s) Glucose [Mass/volume] in Capillary blood by Glucometer 118 mg/dL 70- 140 [facility] ID Date Data Source [id number] 12/07/2019 07:47:08 AM [facility] Value Range Interpretation Code Description Data Grace rce(s) Supporting Document(s) Glucose [Mass/volume] in Capillary blood by Glucometer 118 mg/dL 70- 140 [facility] ID Date Data Source [id number] 12/07/2019 07:47:08 AM [facility] Value Range Interpretation Code Description Data Grace rce(s) Supporting Document(s) Glucose [Mass/volume] in Capillary blood by Glucometer 325 mg/dL 70- 140 H [facility] ID Date Data Source [id number] 12/07/2019 06:02:42 AM [facility] Value Range Interpretation Code Description Data Grace rce(s) Supporting Document(s) Magnesium [Mass/volume] in Serum or Plasma 1.8 mg/dL 1.6-2.4 [facility] ID Date Data Source [id number] 12/07/2019 06:02:42 AM [facility] Value Range Interpretation Code Description Data Grace rce(s) Supporting Document(s) Phosphate [Mass/volume] in Serum or Plasma 4.0 mg/dL 2.5-4.5 [facility] ID Date Data Source [id number] 12/07/2019 11:49:54 AM [facility] Value Range Interpretation Code Description Data Grace rce(s) Supporting Document(s) Bicarbonate [Moles/volume] in Serum 26 mmol/L 22-29 [facility] Chloride [Moles/volume] in Serum or Plasma 102 mmol/L 98-107 [facility] Creatinine [Mass/volume] in Serum or Plasma 0.41 mg/dL 0.50-0.90 L [facility] Glucose [Mass/volume] in Serum or Plasma 360 mg/dL 70-140 H [facility] Potassium [Moles/volume] in Serum or Plasma 3.9 mmol/L 3.4-5.1 [facility] Sodium [Moles/volume] in Serum or Plasma 139 mmol/L 136-145 [facility] Urea nitrogen [Mass/volume] in Serum or Plasma 20 mg/dL 8-23 [facility] Anion gap 3 in Serum or Plasma 11 mmol/L 8-15 [facility] Osmolality of Serum or Plasma by calculation 304 mosm/kg 275-300 H [facility] Creatinine/Urea nitrogen [Mass Ratio] in Serum or Plasma 48 [facility] Calcium [Mass/volume] in Serum or Plasma 8.7 mg/dL 8.8-10.2 L [facility] Glomerular filtration rate/1.73 sq M pre dicted among non-blacks [Volume Rate/Area] in Serum or Plasma by Creatinine-based formula (MDRD) >6 0 [facility] Glomerular filtration rate/1.73 sq M pre dicted among blacks [Volume Rate/Area] in Serum or Plasma by Creatinine-based formula (MDRD) >60 [facility] ID Date Data Source [id number] 12/06/2019 10:35:06 PM EDT [facility] Value Range Interpretation Code Description Data Grace rce(s) Supporting Document(s) Glucose [Mass/volume] in Capillary blood by Glucometer 95 mg/dL 70- 140 [facility] ID Date Data Source [id number] 12/06/2019 03:12:03 PM EDT [facility] Value Range Interpretation Code Description Data Grace rce(s) Supporting Document(s) Glucose [Mass/volume] in Capillary blood by Glucometer 81 mg/dL 70- 140 [facility] ID Date Data Source [id number] 12/06/2019 01:53:01 PM EDT [facility] Value Range Interpretation Code Description Data Grace rce(s) Supporting Document(s) Glucose [Mass/volume] in Capillary blood by Glucometer 112 mg/dL 70- 140 [facility] ID Date Data Source [id number] 12/06/2019 08:53:51 AM EDT [facility] Name Value Range Interpretation Code Description Data Grace rce(s) Supporting Document(s) Operative Note [facility] [id number]/[id number]xXCN4gZ0iLIG0BUpKRzYcCcLbEaB3 lbm [file] DQovSURbPDIyOWNkNTJmYzJjZTFhMGVjYWJlMzYzOW A4BqosBShmAtL0YcX9J8N5HpNbHgMcWQOrNXTnAeDrUfW4WGM6NLU2TDD+BB3vLCi+Hx7Hz4VljkY1vn [id number]== ID Date Data Source [id number] [facility] Description Data Grace rce(s) Supporting Document(s) Glucose [Mass/volume] in Capillary blood by Glucometer 141 mg/dL 70- 140 H [facility] ID Date Data Source [id number] 12/06/2019 05:19:14 AM [facility] Value Range Interpretation Code Description Data Grace rce(s) Supporting Document(s) Magnesium [Mass/volume] in Serum or Plasma 2.1 mg/dL 1.6-2.4 [facility] ID Date Data Source [id number] 12/06/2019 05:19:14 AM [facility] Value Range Interpretation Code Description Data Grace rce(s) Supporting Document(s) Phosphate [Mass/volume] in Serum or Plasma 4.2 mg/dL 2.5-4.5 [facility] ID Date Data Source [id number] 12/06/2019 04:32:23 AM [facility] Value Range Interpretation Code Description Data Grace rce(s) Supporting Document(s) Glucose [Mass/volume] in Capillary blood by Glucometer 139 mg/dL 70- 140 [facility] ID Date Data Source [id number] 12/06/2019 12:02:47 AM [facility] Value Range Interpretation Code Description Data Grace rce(s) Supporting Document(s) Glucose [Mass/volume] in Capillary blood by Glucometer 82 mg/dL 70- 140 [facility] ID Date Data Source [id number] 12/05/2019 08:47:20 PM [facility] Value Range Interpretation Code Description Data Grace rce(s) Supporting Document(s) Glucose [Mass/volume] in Capillary blood by Glucometer 110 mg/dL 70- 140 [facility] ID Date Data Source [id number] 12/05/2019 05:15:46 PM [facility] Value Range Interpretation Code Description Data Grace rce(s) Supporting Document(s) Glucose [Mass/volume] in Capillary blood by Glucometer 117 mg/dL 70- 140 [facility] ID Date Data Source [id number] 12/05/2019 12:01:07 PM [facility] Value Range Interpretation Code Description Data Grace rce(s) Supporting Document(s) Glucose [Mass/volume] in Capillary blood by Glucometer 173 mg/dL 70- 140 H [facility] ID Date Data Source [id number] 12/05/2019 08:20:41 AM [facility] Value Range Interpretation Code Description Data Grace rce(s) Supporting Document(s) Glucose [Mass/volume] in Capillary blood by Glucometer 136 mg/dL 70- 140 [facility] ID Date Data Source [id number] 12/05/2019 05:44:02 AM [facility] Value Range Interpretation Code Description Data Grace rce(s) Supporting Document(s) Magnesium [Mass/volume] in Serum or Plasma 1.9 mg/dL 1.6-2.4 [facility] ID Date Data Source [id number] 12/05/2019 05:44:02 AM [facility] Value Range Interpretation Code Description Data Grace rce(s) Supporting Document(s) Phosphate [Mass/volume] in Serum or Plasma 3.7 mg/dL 2.5-4.5 [facility] ID Date Data Source [id number] 12/05/2019 05:11:08 AM [facility] Value Range Interpretation Code Description Data Grace rce(s) Supporting Document(s) Glucose [Mass/volume] in Capillary blood by Glucometer 143 mg/dL 70- 140 H [facility] ID Date Data Source [id number] 12/05/2019 12:58:58 AM EDT [facility] Name Value Range Interpretation Code Description Data Grace rce(s) Supporting Document(s) Glucose [Mass/volume] in Capillary blood by Glucometer 112 mg/dL 70- 140 [facility] ID Date Data Source [id number] 12/04/2019 09:39:19 PM EDT [facility] Name Value Range Interpretation Code Description Data Grace rce(s) Supporting Document(s) Consultation [facility] CWFSBd1pVoRUJtTr12/IURgiNLUzb9GoDZjhPAh6VPqxJDDaY5PuYGU5lA2gNUW0MEtYCvXpIzGsTyT2 lbm BiCmlMIvDmMENqMtoOTmKoJHnnPivovVTmGP8NpXZ6ZFRlG22rYOCrCUPgB0WtLCL0ZVC+Wy4XOOWpkC GrHG5IFtkB8D6vu2t8Uu3+tL7GUoaysWPUmdQ17Jvn0RZuksGN13YkIFRxZ6yn7Q1KVW8fwsh//vRqey pPa4DT0jlLsy5RbsOQiNteRUBKTt/hE0UiZBGqVYc9 39jfLRD6IZ/1i4qDs2Sm0SIXSmgIbQfs7GDXqe/KpH2j5DZ09kafiGlX43zfMHgmQE9Q6Qzp+J9uLZ28 VlwFyydxIT6/ska8WoA3SD84Pk/wgxj+E7lCfdlLKSfLz3ggpSuIQTXcjEmnPcaJVV7YOA/LKRHdayXa zjLFP07Tt1L2HXg1HQMclJkE597N7NhHgQDp0uTSO6 OlHNPEX3letHwphqjzFFG2NosgndhKT3kwaDrOM9HYHqzMWcQZiiNleEcaHs/Q8dK59V3VhA15lOnAyL 7LI4YPcZ/sOngMdYpahsOSzxS+3vWLZ0oTTc858i/5qnUDNhp6BktGWpJn1LJQ4P8vpkgqBscwiaTW6S IxsmtaXVNpB2+7uaVx2+CG66p7Nt9yp0kcAqLbUeJL FxnK5PK+W05h23sOeQ8tfz29d16gvmpwG8sWa5k2wrip4xfqlnAZStw7Yf6a3jBH3DgIXUDK/bxTSkCD Qk2OReP4E533jswQ055X6T2S0O9iLy+IFLJatffY8txFBnKrMqb5rbjIJ3TYygeFsLo2VM5P7vuunJln eutzP1xyH4DTTbwRkXTtNbbp1Ov94fyMh0ih59XiOT somdT2wHKPw8xLzTUIQaHZLpDnsT6Hdhr95dogT5fuaWo1VJ1I34Mlpg/gDmdrHMgc8yQBvrHD4VWv81 6Cr4pazctARgAFL3AhAosQMety+B/Ecf/24NrlFPbk0c/Ea7Rct6rIO+mZfhbXUINeKaWbJlO/Ne19AN rIZlLl/ELhPBUmXFWNvaRjGQkjioapJyTijtodBmkK [file] ICAgICAgICAgICAgICAgICAgICAgICAgICAgICAgIC TzIOXnHVKkSIEyIOBhIEZrVGLbTDGqEIWjAUPgFKWuYYRhQLOsNMZyKXJqDW9BQVFkWUEuPFFnRGReSJ AgICAgICAgICAgICAgICAgICAgICAgICAgICAgICAgICAgICAgICAgICAgICAgICAgICAgICAgICAgIC NeWYPnLKXzEUHqGNWyLTFoIIYxVVWxPRMaCO7HFNIo ICAgICAgICAgICAgICAgICAgICAgICAgICAgICAgICAgICAgICAgICAgICAgICAgICAgICAgICAgICAg MVIqVJHtBDJnOJIaAZCzNMGlZREeELZlEDRgIUYaNVWbNBIuSA9ZBLRhGQCiPXKkREYhTVMcPUEzGIFv ICAgICAgICAgICAgICAgICAgICAgICAgICAgICAgIC OaEKXgSLMeHNBwIQNvTBEtXXTcMTCdZOUbFVJhGZDkOQXcPKRwJSDhYVTtGHWgMT9OKNQuQQZwGFMpVM AgICAgICAgICAgICAgICAgICAgICAgICAgICAgICAgICAgICAgICAgICAgICAgICAgICAgICAgICAgIC EgWWEvPGFeHCCkYORaLCStDNZkHCFtMNZeESToNC7J ICAgICAgICAgICAgICAgICAgICAgICAgICAgICAgICAgICAgICAgICAgICAgICAgICAgICAgICAgICAg YQWnQPMeJLRnHDEvDUCqGSYwSYPvVXRdUSGsFGLdFAWbCQMgWKVnST1UACPeLESpOOMaWZLoTVTtIVUe ICAgICAgICAgICAgICAgICAgICAgICAgICAgICAgIC DkMCYcSICvBQBxJEEqJLTaLGReWWVkACHcXQSdLLEnCECiCAUyQFVtMOVkBBZpQZNoAZ2SDDLuDMErTY AgICAgICAgICAgICAgICAgICAgICAgICAgICAgICAgICAgICAgICAgICAgICAgICAgICAgICAgICAgIC AgICAgICAgICAgICAgICAgICAgICAgICAgICAgICAg EC9AVOAqCHCsTEMpXQKiZSIqMIKaFHDxYFXoQYXdVZKtQJGzNSDvZUOfVFEgPSUmSSRhLCZdQLZeKECe OGUxGRXeVNCeVFPbQXKtMXGnTOTgXJUsWCIlDSOeLEJxXWUtUUEtMVKoWR5DGSMaWYYnUJFsLEXzTTHv ICAgICAgICAgICAgICAgICAgICAgICAgICAgICAgIC CeZSWgKEWtGONwGLCxHSQbJLGtEOUsXQCwCCUzLEZdHSDbLOGoMEClMHPbXMXgSWJpFCPlJQ9UNM79pS Szr9D7CFUzZQ2piyd/Fu9BJZmolmSipZKmHT9UEfBtKE8rbj7QTiJzLV4dms9RMYmLIkDdS6G2iYPpTZ QbJECEKmZjF27vOHioEg08EDhmQEXrMdUvYEa9Yc7W MlOgZ7joSONgLiW0QQPhYvG6BYJoYjX5MWLiXfHgVHDsTZOiHLBvTUMOAU5EGrGwY8WtwB80BKUKFp5+ CKduwwBkWbwLLqBtZIShy8ZjSWh4BX0BQTZuLtref4VeZuJsLIALIYnxTE3TBTN0JVMhNRHlKs1MCDEn E974afZtXD7XJa5YNpZmCW0bhp2EEyYhVMTqXgcDAu x9GSohSF8OtBZrTApMq84rpQc6fbCuyWEXtWZozhOLY6eeTWbssFdkADGmJALbXp7nSdMiFmNyNLf7GG GrKL1xJUacQZ0CYAH5ZRoeHPPfPUCoM1wJRoPtFLXcQsZamGofGJ0CXrZvQ0EqhpKfrVTpOSMdGWWERc 4+MDxtepHrTqbUWcPdDLQrz0VtHSh7NT8GBDIpRHja YT7CWMIauJ9kMJmuFO5IByNzELCqJCNNAtMzR48acIQzXGb2U8AeGbJeEXKwRhbbYBScIScrGsHkYEKm WyBdDQogID4+ID4+PAqoDD3LPVuppzEtZWKgGa5HNNFzEGPkMC1dAKTyCOIbQ8I1rBibROJUDeUwM7ww nyznID8zUZCjW762nZocdzLvYVYoVADlAj1PRORbUS R5AXMwdGGrVcpeKCBHUZrlMG5ThXKyPZK1xG3zFYmjJBAhJWRmD3vXFdZamRstVS41fYyyfaOrkPAuRK o+Ru4PAO8lm2EmETs6gvAsEVomDAVqROlgGCIePDSoKSMoMZK7IAG5WQUGXnPgBLKwXKRjHHwsCGXtLL Solx1NNWHoHLPbOHvhQYFwNTGmNEWhARirUJArLTTs KqamYIIrYUXmTB0RRsUePISiDNXaWYawQJUiTTGlbr3IHIMsBRKqLwY7NDWrJTPlPVKoJPykIVVkCVTv Dxv3XEKsNIRgYD9VAnBbMWWmMSDrIyCoGDDjBUKcvb8EPYVzKUNqOwZ2DjYfRMFcAUVlBZwcKIVdAWJ1 FKR2GZQlXHSmQI0DVvDyJDJtDZgcEXtrEAIgZUIyia 7PKLQzEULsXeC0ZKFbAMPvHJKgHPirXPGyZEVhVYR3AQNxLJGfPK2REkMqZUGiNECpJEKeDJBnZBNzsf 1WYILnDUQyUZL3YuTaVMTmGDEaIGriPJUzZQU3CZZ0JEIvVSTpKV3AUtUnYJBfNCV5LBVqIBEcIPInfo 1XTGWyNXUbOFrlRsDeZDIeXETyZWdnMBTlMYV9ROt6 NIDxYEZzSW4LUdYsEWVpNPzxTIihKQBvNCZvrp9DVDHnCUPyImP4SiTqIIKsCNEkAGvtTNNtBNA6KqD5 BFBmGKPuZE3BEnOlVLMpCGy1FzTeJDGvZGIjkw6OUEEeKQCnNRLbBnHiATHiWFMkIUjbWNPgOIMeWXHr YHKkKGJjRH4MBbSnZQUwBwHsCTndJSRsFFVscy8SEA YcZRGeZHIeGNRmNPZxPKYkSMkzFTGcQKMyFpK4PINqEOIkLL7WPxQqUPMhYyQ9JIKlOUWgSDKbqh0WUN HiXJAvKUPuZBHzGYQeJCHiAZfrZPVnHYKxIaj4WCEzUQSiFY4CJyJfLPFkBtA0AdOkIPChUUMrns7MTR YhZWXeJbIfFlYuUBGdMUQpJJq8yfRdcHMvMEa5GH7B X4JqgrDjHaEABi7Wy457UHQpKUOtMj9GU9jiVf1lFELwCDJXRr6JZNd0LhXpCtE9BOJdCHZvCUT5UpJj NrA0OWXnCBMzNeY4VnL+INwfFuC5IdS8QlGvKFGxYfsaLjOdMNUbSUSoTqXvVSzmTE1sNEDFWz8+DQpz qGBpdOvhRIOBZyJtEvEgUFfjXVNDZy3N ID Date Data Source [id number] [facility] Code Description Data Grace rce(s) Supporting Document(s) Glucose [Mass/volume] in Capillary blood by Glucometer 109 mg/dL 70- 140 [facility] ID Date Data Source [id number] 12/04[facility]2019 [facility]44[facility] Code Description Data Grace rce(s) Supporting Document(s) Glucose [Mass/volume] in Capillary blood by Glucometer 123 mg/dL 70- 140 [facility] ID Date Data Source [id number] 12/04/2019 [facility]:31[facility] Code Description Data Grace rce(s) Supporting Document(s) Glucose [Mass/volume] in Capillary blood by Glucometer 120 mg/dL 70- 140 [facility] ID Date Data Source [id number] 12/04/2019 08[facility]56[facility] Code Description Data Grace rce(s) Supporting Document(s) Glucose [Mass/volume] in Capillary blood by Glucometer 165 mg/dL 70- 140 H [facility] ID Date Data Source [id number] 12/04/2019 04:54[facility] Code Description Data Grace rce(s) Supporting Document(s) Glucose [Mass/volume] in Capillary blood by Glucometer 140 mg/dL 70- 140 [facility] ID Date Data Source [id number] 12/04/2019 05:40:54 AM [facility] Value Range Interpretation Code Description Data Grace rce(s) Supporting Document(s) Magnesium [Mass/volume] in Serum or Plasma 1.9 mg/dL 1.6-2.4 [facility] ID Date Data Source [id number] 12/04/2019 05:40:54 AM [facility] Value Range Interpretation Code Description Data Grace rce(s) Supporting Document(s) Phosphate [Mass/volume] in Serum or Plasma 3.6 mg/dL 2.5-4.5 [facility] ID Date Data Source [id number] 12/04/2019 12:11:32 AM [facility] Value Range Interpretation Code Description Data Grace rce(s) Supporting Document(s) Glucose [Mass/volume] in Capillary blood by Glucometer 84 mg/dL 70- 140 [facility] ID Date Data Source [id number] 12/03/2019 08:51:00 PM [facility] Value Range Interpretation Code Description Data Grace rce(s) Supporting Document(s) Glucose [Mass/volume] in Capillary blood by Glucometer 132 mg/dL 70- 140 [facility] ID Date Data Source [id number] 12/03/2019 08:10:54 PM [facility] Value Range Interpretation Code Description Data Grace rce(s) Supporting Document(s) Glucose [Mass/volume] in Capillary blood by Glucometer 67 mg/dL 70- 140 L [facility] ID Date Data Source [id number] 12/03/2019 04:45:42 PM [facility] Value Range Interpretation Code Description Data Grace rce(s) Supporting Document(s) Glucose [Mass/volume] in Capillary blood by Glucometer 135 mg/dL 70- 140 [facility] ID Date Data Source [id number] 12/03/2019 12:53:43 PM [facility] Value Range Interpretation Code Description Data Grace rce(s) Supporting Document(s) Glucose [Mass/volume] in Capillary blood by Glucometer 99 mg/dL 70- 140 [facility] ID Date Data Source [id number] 12/03/2019 08:10:17 AM [facility] Value Range Interpretation Code Description Data Grace rce(s) Supporting Document(s) Glucose [Mass/volume] in Capillary blood by Glucometer 124 mg/dL 70- 140 [facility] ID Date Data Source [id number] 12/03/2019 05:13:16 AM [facility] Value Range Interpretation Code Description Data Grace rce(s) Supporting Document(s) Magnesium [Mass/volume] in Serum or Plasma 1.9 mg/dL 1.6-2.4 [facility] ID Date Data Source [id number] 12/03/2019 05:13:16 AM [facility] Value Range Interpretation Code Description Data Grace rce(s) Supporting Document(s) Phosphate [Mass/volume] in Serum or Plasma 3.7 mg/dL 2.5-4.5 [facility] ID Date Data Source [id number] 12/03/2019 04:36:04 AM [facility] Value Range Interpretation Code Description Data Grace rce(s) Supporting Document(s) Glucose [Mass/volume] in Capillary blood by Glucometer 128 mg/dL 70- 140 [facility] ID Date Data Source [id number] 12/03/2019 02:14:13 AM [facility] Value Range Interpretation Code Description Data Grace rce(s) Supporting Document(s) Glucose [Mass/volume] in Capillary blood by Glucometer 127 mg/dL 70- 140 [facility] ID Date Data Source [id number] 12/03/2019 01:11:07 AM [facility] Value Range Interpretation Code Description Data Grace rce(s) Supporting Document(s) Glucose [Mass/volume] in Capillary blood by Glucometer 142 mg/dL 70- 140 H [facility] ID Date Data Source [id number] 12/03/2019 12:17:26 AM [facility] Value Range Interpretation Code Description Data Grace rce(s) Supporting Document(s) Glucose [Mass/volume] in Capillary blood by Glucometer 64 mg/dL 70- 140 L [facility] ID Date Data Source [id number] 12/02/2019 08:53:07 PM [facility] Value Range Interpretation Code Description Data Grace rce(s) Supporting Document(s) Glucose [Mass/volume] in Capillary blood by Glucometer 108 mg/dL 70- 140 [facility] ID Date Data Source [id number] 12/02/2019 04:44:42 PM [facility] Value Range Interpretation Code Description Data Grace rce(s) Supporting Document(s) Glucose [Mass/volume] in Capillary blood by Glucometer 73 mg/dL 70- 140 [facility] ID Date Data Source [id number] 12/02/2019 12:17:26 PM [facility] Value Range Interpretation Code Description Data Grace rce(s) Supporting Document(s) Glucose [Mass/volume] in Capillary blood by Glucometer 103 mg/dL 70- 140 [facility] ID Date Data Source [id number] 12/02/2019 08:49:01 AM [facility] Value Range Interpretation Code Description Data Grace rce(s) Supporting Document(s) Glucose [Mass/volume] in Capillary blood by Glucometer 143 mg/dL 70- 140 H [facility] ID Date Data Source [id number] 12/02/2019 05:41:50 AM [facility] Value Range Interpretation Code Description Data Grace rce(s) Supporting Document(s) Magnesium [Mass/volume] in Serum or Plasma 1.9 mg/dL 1.6-2.4 [facility] ID Date Data Source [id number] 12/02/2019 05:41:50 AM [facility] Value Range Interpretation Code Description Data Grace rce(s) Supporting Document(s) Phosphate [Mass/volume] in Serum or Plasma 3.8 mg/dL 2.5-4.5 [facility] ID Date Data Source [id number] 12/02/2019 04:42:23 AM [facility] Value Range Interpretation Code Description Data Grace rce(s) Supporting Document(s) Glucose [Mass/volume] in Capillary blood by Glucometer 122 mg/dL 70- 140 [facility] ID Date Data Source [id number] 12/02/2019 12:13:14 AM [facility] Value Range Interpretation Code Description Data Grace rce(s) Supporting Document(s) Glucose [Mass/volume] in Capillary blood by Glucometer 70 mg/dL 70- 140 [facility] ID Date Data Source [id number] 12/01/2019 08:43:30 PM [facility] Value Range Interpretation Code Description Data Grace rce(s) Supporting Document(s) Glucose [Mass/volume] in Capillary blood by Glucometer 87 mg/dL 70- 140 [facility] ID Date Data Source [id number] 12/01/2019 06:33:25 PM [facility] Value Range Interpretation Code Description Data Grace rce(s) Supporting Document(s) Glucose [Mass/volume] in Capillary blood by Glucometer 123 mg/dL 70- 140 [facility] ID Date Data Source [id number] 12/01/2019 01:57:43 PM [facility] Value Range Interpretation Code Description Data Grace rce(s) Supporting Document(s) Glucose [Mass/volume] in Capillary blood by Glucometer 166 mg/dL 70- 140 H [facility] ID Date Data Source [id number] 12/01/2019 03:53:33 AM [facility] Value Range Interpretation Code Description Data Grace rce(s) Supporting Document(s) Glucose [Mass/volume] in Capillary blood by Glucometer 142 mg/dL 70- 140 H [facility] ID Date Data Source [id number] 12/01/2019 04:31:23 AM [facility] Value Range Interpretation Code Description Data Grace rce(s) Supporting Document(s) Bicarbonate [Moles/volume] in Serum 31 mmol/L 22-29 H [facility] Chloride [Moles/volume] in Serum or Plasma 100 mmol/L 98-107 [facility] Creatinine [Mass/volume] in Serum or Plasma 0.37 mg/dL 0.50-0.90 L [facility] Glucose [Mass/volume] in Serum or Plasma 152 mg/dL 70-140 H [facility] Potassium [Moles/volume] in Serum or Plasma 3.8 mmol/L 3.4-5.1 [facility] Sodium [Moles/volume] in Serum or Plasma 139 mmol/L 136-145 [facility] Urea nitrogen [Mass/volume] in Serum or Plasma 27 mg/dL 8-23 H [facility] Anion gap 3 in Serum or Plasma 8 mmol/L 8-15 [facility] Osmolality of Serum or Plasma by calculation 296 mosm/kg 275-300 [facility] Creatinine/Urea nitrogen [Mass Ratio] in Serum or Plasma 73 [facility] Calcium [Mass/volume] in Serum or Plasma 8.5 mg/dL 8.8-10.2 L [facility] Glomerular filtration rate/1.73 sq M pre dicted among non-blacks [Volume Rate/Area] in Serum or Plasma by Creatinine-based formula (MDRD) >6 0 [facility] Glomerular filtration rate/1.73 sq M pre dicted among blacks [Volume Rate/Area] in Serum or Plasma by Creatinine-based formula (MDRD) >60 [facility] ID Date Data Source [id number] 12/01/2019 04:31:23 AM [facility] Value Range Interpretation Code Description Data Grace rce(s) Supporting Document(s) Magnesium [Mass/volume] in Serum or Plasma 1.9 mg/dL 1.6-2.4 [facility] ID Date Data Source [id number] 12/01/2019 04:31:23 AM [facility] Value Range Interpretation Code Description Data Grace rce(s) Supporting Document(s) Phosphate [Mass/volume] in Serum or Plasma 3.8 mg/dL 2.5-4.5 [facility] ID Date Data Source [id number] 12/01/2019 12:06:18 AM [facility] Value Range Interpretation Code Description Data Grace rce(s) Supporting Document(s) Glucose [Mass/volume] in Capillary blood by Glucometer 138 mg/dL 70- 140 [facility] ID Date Data Source [id number] 11/30/2019 07:39:01 PM [facility] Value Range Interpretation Code Description Data Grace rce(s) Supporting Document(s) Glucose [Mass/volume] in Capillary blood by Glucometer 132 mg/dL 70- 140 [facility] ID Date Data Source [id number] 11/30/2019 07:07:09 PM [facility] XR ABDOMEN AP ABD SUPINE ONLY [id number] RESULTInterpreted by:Lisa Salcedo, MDPROCEDURE INFORMATION: Exam: XR [...] DX XR ABDOMEN AP ABD SUPINE ONLY [id number] PORTABLE 11/30/2019 3:46 PM FINDINGS: Tubes, catheters [...] document has been electronically signed by Lisa Salcdeo MD on 11/30/2019 7:06 PM Name Value Range Interpretation Code Description Data Grace rce(s) Supporting Document(s) ID Date Data Source [id number] 11/30/2019 06:42:57 PM EDT [facility] XR ABDOMEN AP ABD SUPINE ONLY [id number] RESULTInterpreted by:VARGAS MiguelLINICAL HISTORY: Follow-up [place] tube [...] rce(s) Supporting Document(s) ID Date Data Source [id number] 11/30/2019 03:40:44 PM [facility] Name Value Range Interpretation Code Description Data Grace rce(s) Supporting Document(s) Glucose [Mass/volume] in Capillary blood by Glucometer 88 mg/dL 70- 140 [facility] ID Date Data Source [id number] 11/[facility] Value Range Interpretation Code Description Data Grace rce(s) Supporting Document(s) Glucose [Mass/volume] in Capillary blood by Glucometer 117 mg/dL 70- 140 [facility] ID Date Data Source [id number] 11/30/2019 09:04:41 AM [facility] Name Value Range Interpretation Code Description Data Grace rce(s) Supporting Document(s) History and Physical [facility] [id number] lbm [file] [id number] ID Date Data Source [id number] 11/30/2019 08:14:53 [facility] Name Value Range Interpretation Code Description Data Grace rce(s) Supporting Document(s) Glucose [Mass/volume] in Capillary blood by Glucometer 116 mg/dL 70- 140 [facility] ID Date Data Source [id number] 11/30/2019 08:45:58 AM EDT [facility] Cmnt XXX-Imp : NoneMicroorganism XXX Cult : 2019 nCoV Real-Time RT-PCR: NOT DETECTEDTest performed using Smart Voicemail Respiratory Panel. This test is only for use under Food and Drug Administration's Emergency Use Authorization.Additional information is available on the following FDA websites for health care providers and patients. https://www.fda.gov/media/995441/download , https://www.fda.gov/me joshua/340818/downloadPolymerase chain reaction is NEGATIVE for Influenza A H1, H3 and 2009 H1 viruses, Influenza B virus, Respiratory syncytial virus, Human metapneumovirus, Parainfluenza virus 1,2,3 and 4, Adenovirus, Rhinovirus/ Enterovirus, Coronavirus HKU1, NL63, OC43 and 229E, Bordetella pertussis, B. parapertussis, Mycoplasma pneumoniae and Chlamydia pneumoniae. Name Value Range Interpretation Code Description Data Grace rce(s) Supporting Document(s) ID Date Data Source [id number] 11/30/2019 07:33:00 AM EDT [facility] Cmnt XXX-Imp : NoneMicroorganism XXX Cult : 2019 nCoV Real-Time RT-PCR: NOT DETECTEDTest performed using Smart Voicemail Respiratory Panel. This test is only for use under Food and Drug Administration's Emergency Use Authorization.Additional information is available on the following FDA websites for health care providers and patients. https://www.fda.gov/media/906751/download , https://www.fda.gov/me joshua/744358/downloadPolymerase chain reaction is NEGATIVE for Influenza A H1, H3 and 2009 H1 viruses, Influenza B virus, Respiratory syncytial virus, Human metapneumovirus, Parainfluenza virus 1,2,3 and 4, Adenovirus, Rhinovirus/ Enterovirus, Coronavirus HKU1, NL63, OC43 and 229E, Bordetella pertussis, B. parapertussis, Mycoplasma pneumoniae and Chlamydia pneumoniae. Name Value Range Interpretation Code Description Data Grace rce(s) Supporting Document(s) Microorganism identified in Unspecified specimen by [facility] This lab was ordered by [facility] and reported by [facility]. ID Date Data Source [id number] 11/30/2019 07:41:42 AM [facility] Service Cmnt XXX-Imp : NoneMicroorganism XXX Cult : Test not performed, see COVID-19 PCR order for results. Name Value Range Interpretation Code Description Data Grace rce(s) Supporting Document(s) ID Date Data Source [id number] 11/30/2019 05:38:38 AM [facility] Name Value Range Interpretation Code Description Data Grace rce(s) Supporting Document(s) Magnesium [Mass/volume] in Serum or Plasma 2.0 mg/dL 1.6-2.4 [facility] ID Date Data Source [id number] 11/30/2019 05:38:38 AM [facility] Value Range Interpretation Code Description Data Grace rce(s) Supporting Document(s) Phosphate [Mass/volume] in Serum or Plasma 4.5 mg/dL 2.5-4.5 [facility] ID Date Data Source [id number] 11/30/2019 05:04:11 AM [facility] Name Value Range Interpretation Code Description Data Grace rce(s) Supporting Document(s) Glucose [Mass/volume] in Capillary blood by Glucometer 106 mg/dL 70- 140 [facility] ID Date Data Source [id number] 11/[facility]2019 [facility] Code Description Data Grace rce(s) Supporting Document(s) Glucose [Mass/volume] in Capillary blood by Glucometer 114 mg/dL 70- 140 [facility] ID Date Data Source [id number] 11/29/2019 [facility]:15[facility] Interpret[facility] Code Description Data Grace rce(s) Supporting Document(s) Glucose [Mass/volume] in Capillary blood by Glucometer 150 mg/dL 70- 140 H [facility] ID Date Data Source [id number] 11/29/2019 04:27:59 PM [facility] Value Range Interpretation Code Description Data Grace rce(s) Supporting Document(s) Glucose [Mass/volume] in Capillary blood by Glucometer 132 mg/dL 70- 140 [facility] ID Date Data Source [id number] 11/29/2019 03:10:28 PM [facility] Value Range Interpretation Code Description Data Grace rce(s) Supporting Document(s) 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 developer [file] AgICAgICAgICAgICAgICAgICAgICAgICAgICAgICAgICAgICAgICAgICAgICAgICAgICAgICAgICAgIC AgICAgICAgICAgDQogICAgICAgICAgICAgICAgICAg ICAgICAgICAgICAgICAgICAgICAgICAgICAgICAgICAgICAgICAgICAgICAgICAgICAgICAgICAgICAg ICAgICAgICAgICAgICAgICAgICAgDQogICAgICAgICAgICAgICAgICAgICAgICAgICAgICAgICAgICAg ICAgICAgICAgICAgICAgICAgICAgICAgICAgICAgIC AgICAgICAgICAgICAgICAgICAgICAgICAgICAgICAgDQogICAgICAgICAgICAgICAgICAgICAgICAgIC AgICAgICAgICAgICAgICAgICAgICAgICAgICAgICAgICAgICAgICAgICAgICAgICAgICAgICAgICAgIC AgICAgICAgICAgICAgDQogICAgICAgICAgICAgICAg ICAgICAgICAgICAgICAgICAgICAgICAgICAgICAgICAgICAgICAgICAgICAgICAgICAgICAgICAgICAg ICAgICAgICAgICAgICAgICAgICAgICAgDQogICAgICAgICAgICAgICAgICAgICAgICAgICAgICAgICAg ICAgICAgICAgICAgICAgICAgICAgICAgICAgICAgIC AgICAgICAgICAgICAgICAgICAgICAgICAgICAgICAgICAgDQogICAgICAgICAgICAgICAgICAgICAgIC AgICAgICAgICAgICAgICAgICAgICAgICAgICAgICAgICAgICAgICAgICAgICAgICAgICAgICAgICAgIC AgICAgICAgICAgICAgICAgDQogICAgICAgICAgICAg ICAgICAgICAgICAgICAgICAgICAgICAgICAgICAgICAgICAgICAgICAgICAgICAgICAgICAgICAgICAg ICAgICAgICAgICAgICAgICAgICAgICAgICAgDQogICAgICAgICAgICAgICAgICAgICAgICAgICAgICAg ICAgICAgICAgICAgICAgICAgICAgICAgICAgICAgIC AgICAgICAgICAgICAgICAgICAgICAgICAgICAgICAgICAgICAgDQogICAgICAgICAgICAgICAgICAgIC AgICAgICAgICAgICAgICAgICAgICAgICAgICAgICAgICAgICAgICAgICAgICAgICAgICAgICAgICAgIC ImOKNiCXCbSXOpGHWrVCEjWJLfZYh7W7jzUBLcCYZh MR3mIFq7Bd5+ILyZKpGqECO9acZaoT3QGY0pe2BxHXgwUSAgt4YyWLx9JR3GYRCdQZjaDJ6WEPlmbx9R HKQsFIFcxGUBs0adBvBsNBH6WJQqRhzjFA1WEQMcS1pfssOyVMJcAKYYKGeuTJVOXHteFOBGZK6QVtIy X3FhwW84NDKTCz2+DRndjgKbHnqAQlTjMGKvh8AoUY m6WO7FISXmRqmai7EzJkFhTUYMCCqzSM1QNGF3FWJ0QICbKp9XKGOoJ038dgRmVQ8IJk9BHmUqTK3cop 6YTmMvMXBmElrSEpf2CVpyJP0EoUDfJMeGj80saJb4hhRuaLOBBH3mYABEDGP0jTTvmMzjAiDoUXBmKi 8vTF9tBIReOOC7LkUwSLNIEB2UXYPyPFDnsREuGDLb YMCBIJ0ZXFevNSE3ILMhknAygFDkOKnaKQ3ADLGqduGjJdUbAGRSWPj+Ih8YJX0pd8HgKKxgRZWqTY6n ex9QVXgETtGqH6Z1lAIaJ4K8HQmqDw7YXIBoWNRgMnPvRUDBYUsmDT9QLX7jxgP0UY4ObDBqILReCGIe wKAyLCr8Y93laDGvROxaSA9BRBE+Alise+Iq4HFFEyNU OmOEJyOhFlUCCEAdFuE6HhZ7YDc2TgP3DyQC44sSahkeTsURbrZK7TVD4wISXwGWLLPP3LcLCzqE4wsa UdLkLkVCNXMyAtF72ecFLlIMPxMHVsBFWbOg8XCRAtQ1FfeaNjuQiihqYiQUDqKZMRVQ1OASzrhuJljO DbnKkkIL52vJhhBG2SHf1HKcEaVK6jxn6WjFQrQq1U CLBnPf4YBEQaEXZmOHTdERR5XAUkAyZsEHukLSEtOWDmEOP2DEFpOPNfUZ5BIdLhDUCwFNp0QWEfTVYi JBUbku0FRUMrUDL5SYYxPrJoAHNhREUlHVgxJHLqMMAgSAG1WTKxCXRdYZ3BObPpXIHiLLHcOnxyEXNd TNYvnp7INIClNTOkDDL5PoYqXLCeUWYwCIhxNTEcUW T4COVjXTXsTBJuEB5DHiVtHKOeKYwhHSmvEMDbNSZqux8BGVWaRMSqMCXvLXGjIPHlYEAqKXmpJCPlXJ ZrXUG0NRVwVXSmXW0NYxXqLWMvWWV8LbVjJPEvRXVcmh7PXOUmDQEwHJY0TCZtMQFsIYUlFUxmPPBwNH KvFQP2KUDmBUNdKB2OWgCaNSFrKNZ0EMKgPAPbZDVh ed6MOHJwDHHtBzIsFYGdRRKgFUXfWMydAEYdQEXvASqwYPVgBWBsGE0ZFjSrAPToUJcrNbXfZEAeOCCr ma6CKCQpRUD2CxD4HVRfGZFxAFCzEKtvXSWhUDE2DYz8UHOxFIKiFJ8FHfOrTEYbQFm8QVTjBGAxYYDu rh9QYMMdXVD1WKa6KeQcLUJqCTSdWSkeTDXaIGL0Iw pyRTRuCYCoPP8QCaIqEVFeJCJ0IPClWQTwTSVdst7GQEVzIFX5RBkuYYKkVTAnOOKwHJyuKGRtGQIzAM V0VYNhAFGnBS0PWoVeXFhrZCBOFnc7MGkwW8x3CBTfNf4CD6Nko9RuToZrVWADBRxtXO5lixHoDALnYl 2GB0hDOxwaZ5DjSIYmCXHyQqRsHnY4EPAeDQw7VpC1 YBXjQOXqKO8rYVYjFfC8WqNkNnXxU6RvIVVoBlLmYZXsRWenNtEeO3SiCkGhSF3KPc5GUvD1VUY6dFSq Ey4YCFMfMCVPRpXnDW0ZVTz= ID Date Data Source [id number] 11/29/2019 01:23:04 PM EDT [facility] MR CERVICAL SPINE WITHOUT CONTRAST [id number] FINAL RESULTInterpreted by:Sarah Page, DOINDICATION: bulbar weakness.TECHNIQUE: [...] rce(s) Supporting Document(s) ID Date Data Source [id number] 11/29/2019 01:23:04 PM EDT [facility] MR THORACIC SPINE WITHOUT CONTRAST [id number] FINAL RESULTInterpreted by:Sarah Page DOINDICATION: bulbar weakness.TECHNIQUE: [...] rce(s) Supporting Document(s) ID Date Data Source [id number] 11/29/2019 12:45:24 PM EDT [facility] MR BRAIN WITHOUT CONTRAST [id number] RES ULTInterpreted by:Makeda Page MDCLINICAL INDICATION: 64-year-old [...] Name Value Range Interpretation Code Description Data [facility] rce(s) Supporting Document(s) ID Date Data Source [id number] 11/29/2019 12:00:37 PM EDT [facility] XR THORACIC SPINE AP AND LATERALFINAL [...] rce(s) Supporting Document(s) ID Date Data Source [id number] 11/29/2019 11:45:16 AM [facility] Value Range Interpretation Code Description Data Grace rce(s) Supporting Document(s) Glucose [Mass/volume] in Capillary blood by Glucometer 132 mg/dL 70- 140 [facility] ID Date Data Source [id number] 11/29/2019 08:11:14 AM [facility] Value Range Interpretation Code Description Data Grace rce(s) Supporting Document(s) Glucose [Mass/volume] in Capillary blood by Glucometer 126 mg/dL 70- 140 [facility] ID Date Data Source [id number] 11/29/2019 04:59:58 AM [facility] Value Range Interpretation Code Description Data Grace rce(s) Supporting Document(s) Glucose [Mass/volume] in Capillary blood by Glucometer 125 mg/dL 70- 140 [facility] ID Date Data Source [id number] 11/29/2019 04:30:56 AM [facility] Value Range Interpretation Code Description Data Grace rce(s) Supporting Document(s) Magnesium [Mass/volume] in Serum or Plasma 1.9 mg/dL 1.6-2.4 [facility] ID Date Data Source [id number] 11/29/2019 04:30:56 AM [facility] Value Range Interpretation Code Description Data Grace rce(s) Supporting Document(s) Phosphate [Mass/volume] in Serum or Plasma 3.9 mg/dL 2.5-4.5 [facility] ID Date Data Source [id number] 11/29/2019 07:35:37 AM [facility] Value Range Interpretation Code Description Data Grace rce(s) Supporting Document(s) Leukocytes [#/volume] in Blood by Automated count 12.5 10*3/uL 4-10 H [facility] Erythrocytes [#/volume] in Blood by Automated count 3.51 10*6/uL 4.1- 5.3 [facility] Hemoglobin [Mass/volume] in Blood 9.8 g/dL 11.5-15.5 [facility] Hematocrit [Volume Fraction] of Blood by Automated count 31.3 % 3 6-45 L [facility] Erythrocyte mean corpuscular volume [Entitic volume] by Auto mated count 89.2 fL 80-96 [facility] Erythrocyte mean corpuscular hemoglobin [Entitic mass] by Automated count 27.9 pg 27-33 [facility] Erythrocyte mean corpuscular hemoglobin concentration [Mass/volume] by Automated count 31.3 g/dL 32.0-36.0 [facility] width [Ratio] by Automated count 16.7 % 11.5-14.5 [facility] Platelets [#/volume] in Blood by Automated count 400 10*3/uL 150-400 [facility] ID Date Data Source [id number] 11/29/2019 12[facility]57[facility] Name Value Range Interpretation Code Description Data Grace rce(s) Supporting Document(s) Glucose [Mass/volume] in Capillary blood by Glucometer 154 mg/dL 70- 140 [facility] ID Date Data Source [id number] 11/28/2019 09:58:28 PM [facility] Name Value Range Interpretation Code Description Data Grace rce(s) Supporting Document(s) [facility] XYAMNb5pOiGTKkWr56/MEUfcJZIfs4CbJZcvHPq2LIntFDQpB6CeGQD1eL5lGMK1PIzVLbRcFrChTaM4 lbm [file] AgICAgICAgICAgICAgICAgICAgICAgICAgICAgICAgICAgICAgICAgICAgICAgICAgICAgICAgICAgIC AgICAgDQogICAgICAgICAgICAgICAgICAgICAgICAg ICAgICAgICAgICAgICAgICAgICAgICAgICAgICAgICAgICAgICAgICAgICAgICAgICAgICAgICAgICAg ICAgICAgICAgICAgICAgDQogICAgICAgICAgICAgICAgICAgICAgICAgICAgICAgICAgICAgICAgICAg ICAgICAgICAgICAgICAgICAgICAgICAgICAgICAgIC AgICAgICAgICAgICAgICAgICAgICAgICAgDQogICAgICAgICAgICAgICAgICAgICAgICAgICAgICAgIC AgICAgICAgICAgICAgICAgICAgICAgICAgICAgICAgICAgICAgICAgICAgICAgICAgICAgICAgICAgIC AgICAgICAgDQogICAgICAgICAgICAgICAgICAgICAg ICAgICAgICAgICAgICAgICAgICAgICAgICAgICAgICAgICAgICAgICAgICAgICAgICAgICAgICAgICAg ICAgICAgICAgICAgICAgICAgDQogICAgICAgICAgICAgICAgICAgICAgICAgICAgICAgICAgICAgICAg ICAgICAgICAgICAgICAgICAgICAgICAgICAgICAgIC AgICAgICAgICAgICAgICAgICAgICAgICAgICAgDQogICAgICAgICAgICAgICAgICAgICAgICAgICAgIC AgICAgICAgICAgICAgICAgICAgICAgICAgICAgICAgICAgICAgICAgICAgICAgICAgICAgICAgICAgIC AgICAgICAgICAgDQogICAgICAgICAgICAgICAgICAg ICAgICAgICAgICAgICAgICAgICAgICAgICAgICAgICAgICAgICAgICAgICAgICAgICAgICAgICAgICAg ICAgICAgICAgICAgICAgICAgICAgDQogICAgICAgICAgICAgICAgICAgICAgICAgICAgICAgICAgICAg ICAgICAgICAgICAgICAgICAgICAgICAgICAgICAgIC AgICAgICAgICAgICAgICAgICAgICAgICAgICAgICAgDQogICAgICAgICAgICAgICAgICAgICAgICAgIC AgICAgICAgICAgICAgICAgICAgICAgICAgICAgICAgICAgICAgICAgICAgICAgICAgICAgICAgICAgIC WlPABoJIRoPUHeRYFwZWk4J7luZOEaCNJeEU6qOPj5 Jz8+TLyFTuJuNKW5wvUfhW2ADJ0ae2VxUEzjOPZlc5EfPUy2IH2WTNEnRQazFF5KJSgeev0OUQAqGLNx gGWQa7voYmGdYRW3EWMoBmvfUZ1HYMWuO7jnubEuAOPyBZGIBXruQALFHCtaRMZPNLYoEDKyDoHiUbMm GEPcWDKnOIIJUEI5NWPsHeNkVIDwJGYqFZ1SDSLtO9 94igDgHV7GCh6XXwNoGU2gth0JBwUvJHFkBobIJfx0KYblMC3ZsUAonCWvHcNmHBLBJrSdN1szd8QeJe vnXWBIPXyoZS7Vy4KbpUGdJYb+Gu9UWJ4sb0PdBSlcLbQoIV1ssg8XPDeVSzElD6FujNmoRORvhtD3xU HuMRZ6RN3yvNndKyARhBG1YQHddzPtDEjiNURwIFMh Id4kAK2xLDXzQJAlVbXcFPAPVS4EYHZcPOXjsJLqVGPvAHEGME0OLRfyALX3IXAszzBhmAXsPBxuHS7W YXJlbnQgMzYgMCBSDQo+Gi4VOQ5df3KjWEtyFYBpSD9sdb6OMXtPGaHjZ9N5tSWmQ4H2IEnuJk6YBUZc FRFrDaWaXYHUUUajYD4TRY9qrmB9CL0VnBFkHMXqFZ YqmHCiOAy6S59wlISeSNawPL4VZGZ+Alise+Nc0ASLNvLDEqAHNhUdPrKTSGKlOfO6SsP2TWd0FiT6DxQQ 40nZgjqyMiAAgkHQ5MJT9jBOXkMXESEC5XeDDefY3rzuNcYyEuICBNKqEmJ62twXGbSBBgWFV4BYCfRs 8DTNBmU4SbuoNmsJkwjxQjOARxRIAMFV4MJByinrDt jIVjbMlsIW52cPtnDE8UGy6AUrPjAD3nom7JbELdQr1QLILqSX7ARQOiPWJwGJQaYCC7XNOdEmJhTDeu VLQlBZOqUWC9KCYuEWPgSF4EBoRqVFKwVHP8XzXiVZNuHUNcgt9HHZMoJRF3ZsA0OBEeECHpKSEyYDsw KTNgHQLmLEP8PSLvEPCzNY8HZgTbUCAqHDM4XAQoZN JeLZPqyq0RVXPzRQTnFRN2QkIoGWOeLFDbXUxySIZsVJG7SpPhCOQeBMQaNT6MKmQoZGHjCVA9CcVuSK UxFBOqex4OJPJmNUJgUVQ4TuLxIZGsXPNnWJuuQHIfAIJ6XnF3GLAsXPSvHF6EHfHmNBLxVTY9DzScGP GwPJSxxp5KELLvZRVaTnn9XSPoZZYuPHYkADcyIZTz QEJ9UCT6MUAkJRNkOL8WHzCmAEPuFTMzLdQgYRZfGREwlt3KDWNdNWZuASdvDcJaFSRaJUQuIYqhQECc TRBqJVB1JRSsRIVrQG8KTrVtAMQzUbG9QOziAILzCEMdmh7ROEIrJIAwJaX3ELWzHALkQTImPRstGNLz AZD4LjU7LCZcRRUrEL9RQxLkUCHyPaD5BxWjIEAjWQ Wdey5ZZAReQXKpYeRrKQTqTEAjURJvHCauMKBqTPL7StGfIIUaHUEkWD8LJuQiYNDxGbE6IFCsDMYoDV Yzlw8IBYHjSJNkFxr2XNBwVTOmFNTfQSjoPVInWYR4SSq3YKTyJMMcCI3BCgIvLPNfDleqSpUoZRMrUI Ohpz1RAYGgNHYhEEIvBEThUVRqDALpXRtaQGZaCXX6 JTVzXYDfPUCzPW4WUnMzNIXmOjr5OJAmWUIuMMBsjf0OYUBnBPX1YIk4CYBjCTVpMYWxDFajQWSqLIFd ThB2MKIkSGQaWB5QZdBpQMEyYJD7CRTdXUOmTZHvtv1GYXRdMWS1IZq8IKAxAFYxZJAiIRwbOQYqFNOb WKEnVNLdEKRvXI6JFaTtIXQyCNMdLDczTPYlALGgar 8SYMKyRXC8RhlgYbVbSCLoUPYvBVenYNYyTRBmGIw9DYWuRTKiED7AUsJgBBXaAFFjQbXiWQGoTRTrwl 6McBFvfHfqia6AQXyMUb3KtUhxKIC8UWuiYj7vrKJkDVVvNZCWLc6JmqUuUKPySJCADPgjXONvKZJnPx XnWxYbO8BcIXKoBKC2JhHaPPw2MGRwOXS3BMBlMrK6 JQPlJAA5VGX7GhGjZCTtTrInWERkJZX0HsZrPyHbTMY+AS0yWXw+Xy3Xy6IdlgI0auGkFCi4ZLH7OM2O RASJN0EUKf== ID Date Data Source [id number] 11/28/2019 09:49:41 PM [facility] Value Range Interpretation Code Description Data Grace rce(s) Supporting Document(s) Glucose [Mass/volume] in Capillary blood by Glucometer 211 mg/dL 70- 140 [facility] ID Date Data Source [id number] 11/28/2019 08:28:01 PM [facility] Value Range Interpretation Code Description Data Grace rce(s) Supporting Document(s) Glucose [Mass/volume] in Capillary blood by Glucometer 157 mg/dL 70- 140 [facility] ID Date Data Source [id number] 11/28/2019 04:37:17 PM [facility] Value Range Interpretation Code Description Data Grace rce(s) Supporting Document(s) Glucose [Mass/volume] in Capillary blood by Glucometer 149 mg/dL 70- 140 [facility] ID Date Data Source [id number] 11/28/2019 11:42:38 AM [facility] Value Range Interpretation Code Description Data Grace rce(s) Supporting Document(s) Glucose [Mass/volume] in Capillary blood by Glucometer 155 mg/dL 70- 140 [facility] ID Date Data Source [id number] 11/28/2019 08:04:36 AM [facility] Value Range Interpretation Code Description Data Grace rce(s) Supporting Document(s) Glucose [Mass/volume] in Capillary blood by Glucometer 130 mg/dL 70- 140 [facility] ID Date Data Source [id number] 11/28/2019 05:18:15 AM [facility] Value Range Interpretation Code Description Data Grace rce(s) Supporting Document(s) Phosphate [Mass/volume] in Serum or Plasma 3.6 mg/dL 2.5-4.5 [facility] ID Date Data Source [id number] 11/28/2019 05:18:15 AM [facility] Value Range Interpretation Code Description Data Grace rce(s) Supporting Document(s) Magnesium [Mass/volume] in Serum or Plasma 2.0 mg/dL 1.6-2.4 [facility] ID Date Data Source [id number] 11/28/2019 04:14:59 AM [facility] Value Range Interpretation Code Description Data Grace rce(s) Supporting Document(s) Glucose [Mass/volume] in Capillary blood by Glucometer 173 mg/dL 70- 140 [facility] ID Date Data Source [id number] [facility]2019 [facility] Code Description Data Grace rce(s) Supporting Document(s) Glucose [Mass/volume] in Capillary blood by Glucometer 156 mg/dL 70- 140 [facility] ID Date Data Source [id number] 11/27/2019 08:17:25 PM [facility] Value Range Interpretation Code Description Data Grace rce(s) Supporting Document(s) Glucose [Mass/volume] in Capillary blood by Glucometer 194 mg/dL 70- 140 [facility] ID Date Data Source [id number] 11/27/2019 04:13:24 PM [facility] Value Range Interpretation Code Description Data Grace rce(s) Supporting Document(s) Glucose [Mass/volume] in Capillary blood by Glucometer 193 mg/dL 70- 140 [facility] ID Date Data Source [id number] 11/27/2019 01:05:43 PM [facility] Value Range Interpretation Code Description Data Grace rce(s) Supporting Document(s) Glucose [Mass/volume] in Capillary blood by Glucometer 205 mg/dL 70- 140 [facility] ID Date Data Source [id number] 11/27/2019 08:39:43 AM [facility] Value Range Interpretation Code Description Data Grace rce(s) Supporting Document(s) [facility] TQJFWz1rMkUKJlIxt5HxEhHmSMDrQP3jiyj4G3C8pLRzX1UfgCLlx0mwR6KsQ5RjQRVlTDNTYG2FpRPq jb2 [file] ezVi1bLdGbBJJGR2Czn3YgPCQgNEKEPi4+QpU9JJM9nDAcXbp0CyL9XcppXZTOGe== ID Date Data Source [id number] 11/27/2019 08:11:27 AM [facility] Value Range Interpretation Code Description Data Grace rce(s) Supporting Document(s) Glucose [Mass/volume] in Capillary blood by Glucometer 208 mg/dL 70- 140 [facility] ID Date Data Source [id number] 11/27/2019 05:22:47 AM [facility] Value Range Interpretation Code Description Data Grace rce(s) Supporting Document(s) Magnesium [Mass/volume] in Serum or Plasma 2.4 mg/dL 1.6-2.4 [facility] ID Date Data Source [id number] 11/27/2019 05:22:47 AM [facility] Value Range Interpretation Code Description Data Grace rce(s) Supporting Document(s) Phosphate [Mass/volume] in Serum or Plasma 3.8 mg/dL 2.5-4.5 [facility] ID Date Data Source [id number] 11/27/2019 05:04:20 AM [facility] Value Range Interpretation Code Description Data Grace rce(s) Supporting Document(s) Calcium.ionized [Moles/volume] in Arterial blood 1.11 mmol/L 1.13-1.3 2 L [facility] ID Date Data Source [id number] 11/27/2019 04:09:08 AM [facility] Value Range Interpretation Code Description Data Grace rce(s) Supporting Document(s) Glucose [Mass/volume] in Capillary blood by Glucometer 110 mg/dL 70- 140 [facility] ID Date Data Source [id number] 11/27/2019 12:02:04 AM [facility] Value Range Interpretation Code Description Data Grace rce(s) Supporting Document(s) Glucose [Mass/volume] in Capillary blood by Glucometer 203 mg/dL 70- 140 H [facility] ID Date Data Source [id number] 11/26/2019 08:04:21 PM [facility] Value Range Interpretation Code Description Data Grace rce(s) Supporting Document(s) Glucose [Mass/volume] in Capillary blood by Glucometer 167 mg/dL 70- 140 [facility] ID Date Data Source [id number] 11/26/2019 06:59:14 PM [facility] Value Range Interpretation Code Description Data Grace rce(s) Supporting Document(s) Leukocytes [#/volume] in Blood by Automated count 11.1 10*3/uL 4-10 H [facility] Erythrocytes [#/volume] in Blood by Automated count 3.39 10*6/uL 4.1- 5.3 L [facility] Hemoglobin [Mass/volume] in Blood 9.7 g/dL 11.5-15.5 L [facility] Hematocrit [Volume Fraction] of Blood by Automated count 30.3 % 3 6-45 L [facility] Erythrocyte mean corpuscular volume [Entitic volume] by Auto mated count 89.6 fL 80-96 [facility] Erythrocyte mean corpuscular hemoglobin [Entitic mass] by Automated count 28.5 pg 27-33 [facility] Erythrocyte mean corpuscular hemoglobin concentration [Mass/volume] by Automated count 31.9 g/dL 32.0-36.0 L [facility] Erythrocyte distribution width [Ratio] by Automated count 16.7 % 11.5-14.5 H [facility] Platelets [#/volume] in Blood by Automated count 380 10*3/uL 150-400 [facility] ID Date Data Source [id number] 11/26/2019 07:23:[address] [facility] Name Value Range Interpretation Code Description Data Grace rce(s) Supporting Document(s) Albumin [Mass/volume] in Serum or Plasma by Bromocresol green (BCG) dye binding method 3.6 g/dL 3.5-5.2 [facility] Bil[facility].total [Mass/volume] in Serum or Plasma 0.2 mg/dL <1.2 [facility] Calcium [Mass/volume] in Serum or Plasma 9.2 mg/dL 8.8-10.2 [facility] Chloride [Moles/volume] in Serum or Plasma 93 mmol/L 98-107 L [facility] Creatinine [Mass/volume] in Serum or Plasma 0.42 mg/dL 0.50-0.90 L [facility] Glucose [Mass/volume] in Serum or Plasma 211 mg/dL 70-140 H [facility] Alkaline phosphatase [Enzymatic activity/volume] in Serum or Plasma 104 U/L 35-104 [facility] Potassium [Moles/volume] in Serum or Plasma 4.5 mmol/L 3.4-5.1 [facility] Protein [Mass/volume] in Serum or Plasma 6.8 g/dL 6.4-8.3 [facility] Sodium [Moles/volume] in Serum or Plasma 133 mmol/L 136-145 L [facility] Aspartate aminotransferase [Enzymatic activity/volume] in Se rum or Plasma 8 U/L <32 [facility] Urea nitrogen [Mass/volume] in Serum or Plasma 27 mg/dL 8-23 H [facility] Osmolality of Serum or Plasma by calculation 287 mosm/kg 275-300 [facility] Creatinine/Urea nitrogen [Mass Ratio] in Serum or Plasma 65 [facility] Bicarbonate [Moles/volume] in Serum 33 mmol/L 22-29 H [facility] Alanine aminotransferase [Enzymatic activity/volume] in Seru m or Plasma 13 U/L <33 [facility] Anion gap 3 in Serum or Plasma 7 mmol/L 8-15 L [facility] Glomerular filtration rate/1.73 sq M pre dicted among non-blacks [Volume Rate/Area] in Serum or Plasma by Creatinine-based formula (MDRD) >6 0 [facility] Glomerular filtration rate/1.73 sq M pre dicted among blacks [Volume Rate/Area] in Serum or Plasma by Creatinine-based formula (MDRD) >60 [facility] ID Date Data Source [id number] 11/26/2019 07:23:54 PM [facility] Value Range Interpretation Code Description Data Grace rce(s) Supporting Document(s) Magnesium [Mass/volume] in Serum or Plasma 1.9 mg/dL 1.6-2.4 [facility] ID Date Data Source [id number] 11/26/2019 07:23:54 PM [facility] Value Range Interpretation Code Description Data Grace rce(s) Supporting Document(s) Phosphate [Mass/volume] in Serum or Plasma 3.6 mg/dL 2.5-4.5 [facility] ID Date Data Source [id number] 11/26/2019 04:15:13 PM [facility] Value Range Interpretation Code Description Data Grace rce(s) Supporting Document(s) Glucose [Mass/volume] in Capillary blood by Glucometer 148 mg/dL 70- 140 H [facility] ID Date Data Source [id number] 11/26/2019 12:36:09 PM EDT [facility] Name Value Range Interpretation Code Description Data Grace rce(s) Supporting Document(s) Glucose [Mass/volume] in Capillary blood by Glucometer 177 mg/dL 70- 140 H [facility] ID Date Data Source [id number] 11/26/2019 08:14:55 AM [facility] Value Range Interpretation Code Description Data Grace rce(s) Supporting Document(s) Glucose [Mass/volume] in Capillary blood by Glucometer 195 mg/dL 70- 140 H [facility] ID Date Data Source [id number] 11/26/2019 05:17:49 AM [facility] Value Range Interpretation Code Description Data Grace rce(s) Supporting Document(s) Magnesium [Mass/volume] in Serum or Plasma 2.1 mg/dL 1.6-2.4 [facility] ID Date Data Source [id number] 11/26/2019 05:17:49 AM [facility] Value Range Interpretation Code Description Data Grace rce(s) Supporting Document(s) Phosphate [Mass/volume] in Serum or Plasma 4.2 mg/dL 2.5-4.5 [facility] ID Date Data Source [id number] 11/26/2019 04:57:23 AM [facility] Value Range Interpretation Code Description Data Grace rce(s) Supporting Document(s) Calcium.ionized [Moles/volume] in Arterial blood 1.19 mmol/L 1.13-1.3 2 [facility] ID Date Data Source [id number] 11/26/2019 04:44:56 AM [facility] Value Range Interpretation Code Description Data Grace rce(s) Supporting Document(s) Glucose [Mass/volume] in Capillary blood by Glucometer 165 mg/dL 70- 140 H [facility] ID Date Data Source [id number] 11/26/2019 02:47:23 AM [facility] Value Range Interpretation Code Description Data Grace rce(s) Supporting Document(s) Glucose [Mass/volume] in Capillary blood by Glucometer 190 mg/dL 70- 140 H [facility] ID Date Data Source [id number] 11/25/2019 09:58:19 PM [facility] Value Range Interpretation Code Description Data Grace rce(s) Supporting Document(s) Glucose [Mass/volume] in Capillary blood by Glucometer 158 mg/dL 70- 140 H [facility] ID Date Data Source [id number] 11/25/2019 07:25:41 PM [facility] Value Range Interpretation Code Description Data Grace rce(s) Supporting Document(s) Glucose [Mass/volume] in Capillary blood by Glucometer 170 mg/dL 70- 140 H [facility] ID Date Data Source [id number] 11/25/2019 03:53:34 PM [facility] Value Range Interpretation Code Description Data Grace rce(s) Supporting Document(s) Glucose [Mass/volume] in Capillary blood by Glucometer 217 mg/dL 70- 140 H [facility] ID Date Data Source [id number] 11/25/2019 11:44:38 AM [facility] Value Range Interpretation Code Description Data Grace rce(s) Supporting Document(s) Glucose [Mass/volume] in Capillary blood by Glucometer 110 mg/dL 70- 140 [facility] ID Date Data Source [id number] 11/25/2019 10:12:03 AM [facility] Value Range Interpretation Code Description Data Grace rce(s) Supporting Document(s) 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 [file] AgICAgICAgICAgICAgICAgICAgICAgICAgICAgICAgICAgICAgICAgICAgICAgICAgICAgICAgICAgIC AgICAgICAgICAgICAgICAgDQogICAgICAgICAgICAgICAgICAgICAgICAgICAgICAgICAgICAgICAgIC AgICAgICAgICAgICAgICAgICAgICAgICAgICAgICAg ICAgICAgICAgICAgICAgICAgICAgICAgICAgDQogICAgICAgICAgICAgICAgICAgICAgICAgICAgICAg ICAgICAgICAgICAgICAgICAgICAgICAgICAgICAgICAgICAgICAgICAgICAgICAgICAgICAgICAgICAg ICAgICAgICAgDQogICAgICAgICAgICAgICAgICAgIC AgICAgICAgICAgICAgICAgICAgICAgICAgICAgICAgICAgICAgICAgICAgICAgICAgICAgICAgICAgIC AgICAgICAgICAgICAgICAgICAgDQogICAgICAgICAgICAgICAgICAgICAgICAgICAgICAgICAgICAgIC AgICAgICAgICAgICAgICAgICAgICAgICAgICAgICAg ICAgICAgICAgICAgICAgICAgICAgICAgICAgICAgDQogICAgICAgICAgICAgICAgICAgICAgICAgICAg ICAgICAgICAgICAgICAgICAgICAgICAgICAgICAgICAgICAgICAgICAgICAgICAgICAgICAgICAgICAg ICAgICAgICAgICAgDQogICAgICAgICAgICAgICAgIC AgICAgICAgICAgICAgICAgICAgICAgICAgICAgICAgICAgICAgICAgICAgICAgICAgICAgICAgICAgIC AgICAgICAgICAgICAgICAgICAgICAgDQogICAgICAgICAgICAgICAgICAgICAgICAgICAgICAgICAgIC AgICAgICAgICAgICAgICAgICAgICAgICAgICAgICAg ICAgICAgICAgICAgICAgICAgICAgICAgICAgICAgICAgDQogICAgICAgICAgICAgICAgICAgICAgICAg ICAgICAgICAgICAgICAgICAgICAgICAgICAgICAgICAgICAgICAgICAgICAgICAgICAgICAgICAgICAg ICAgICAgICAgICAgICAgDQogICAgICAgICAgICAgIC AgICAgICAgICAgICAgICAgICAgICAgICAgICAgICAgICAgICAgICAgICAgICAgICAgICAgICAgICAgIC OsRFNfSDRfIBEjMXDcYGOtKGKgFSMaLEYqRMq6I1zxOKVdBDFxWZ4sOYc1Nl8+JNmTXuDcPRV0suStdY 0URX6ba3PgEEsfEHMvq2GgVRq1NR3ZDIDoFVlzQV3L RSnzzw5DTTIkXHMnjVMHb7srRzFlEAG6RYTlCjohFV6VCAVsS0wbtjHtVOBqHBHILJlnSRBSFQskHSTQ HSEoXXQfOwAzJpYvPORbPDYnQHTQFD6FOxZlB9UmxA77PHFSTd5+MCivcyJuKveGOhOhNHRaz4ZlYQq0 PB8YABOmUnnjf5CzBVVpOCDPFXziYG8FSVW9LFZzXP QaBm7AWZUdC866czTrED3ALp5NWxXqUP4ifl2LMJKpTILfAhaCBre5QCljYD3CrTGaCFcTl38tfHg9sn OlvOONLSAzRBOaw0JmIQ1ELMB8GTLqMxTtPjKjEKKeOdlcLsIMRMtALpFkJ2Vjk1OvCpU7MEPgWeMwCX ckQNQfRzZ1HZ06qQayLO1DULUgWMHlTR71FFHtRCMw Ox0GIq7EEdJiDX4ksp7GMVDwIMNeUjyMXor3ULqsJU6YvAVhF9ZnzVSsq3fBToIoW0FXNNY8LAGyCa5L HTRaHvWuPBJjHXqtSR9dTHDmWGWZyOpxacT0YO5RIZ9ajuItFD3LHaJzVm7tMa3XQjEdF9NyK5DsFFPx YKQIKAskWB2YWNrqEN8uEB4Jf2NBrMLkzH9ype8MMX NwKGXbXiocsk0HXzraD9A5gZeuNFGnJPEfOSDGOWdhIV4FAVOiRHC5BJU4TCKgKBIRJcGzR29pFM2TP6 Llh50jEuN1GYQmDlVkBGffLN15hWcpxuOfdFUihYfgCT5LKm8+DQplbmRvYmoNCnhyZWYNCjAgNDQNCj JiJVOmUVAoYZVjTeD2GbOsAq1YGFEbMCQsLUZmWeAy JAUzTNGqMEjdLLTuLdO3SFI7ZQJrTONhXU9VIjKqZRDfXBGoUoYdUWTsUHTxmp7DNVXfOEVoMBU9XfXm CMYtBSEqZMqcUUFmNWClNKI7FBCoMNWvLV0HXlMvMYLxABLwNFZyPLQwUSQvkr1CUBIsCZArCbKrWvTb EWNiNADwQEucDQWdAKH9BhB3OQRxSQTmQT0URoZpSH RdGAbeMDHaYVDiGBMjwc4QQWWyUVSoZLP9ByOzALQoDQSaKAceTBMpOBXuKYOpCCIdQAOmLM0DHzYsQX YbHMX7SofwPLTtLHTvgy3UIWShCFIyVWB0NGHqUXZkNTDfMDxaOIXaVHQ9QtdxYUQmVLKkOY7ZNnHmLO XlUJOqSLTlEBVaYAFozd7BYHRtBYKoMkYiJDPoEXIi QQImWWhzZGHwPSD1RWBtYLTbMFKvWF6PCwZlNZAxTPx8PVzjYGGqVBLues3XUUXmPDWwBzg4FHIrTYQz VMCoKNlwAUDdEVQ4WOKeQTPjYXSfPN1NFeCwDZOePAuuQOTfBIEuFZHvuj3XGYScNUGbILS4CKMwKLNq QWQpDCfyRFVlINZrIvUlXRGoIHZjNB1KSqYkFLPdGe S6OZolGRIaTBSmkp6UCELsCTObKHCzNIHmRUGmVLJeFGwzOGPpRAEhATG4TSKcZRNgFD8DBuDlSQFxPf RrKcEzMEPsROXuxl6TIMIrQFUpCwX3DaRxJSOmIOMtGQhkNMXqSDItFbvtZOYnAGOcXY2UScDjZKJcZy Z0UtbeCLJzUCQxmo6GRCLgINCuIqc5KQNmKCNlOQMv WDaxRRYdJZI5SIInLZDhBYTtCB3NXvGnOOEgIfYmEOUeNOUcSPJweq5AJYBxJSJeNPI8QRUbVORcOBUj TBclDBHcKDx7WvD2NWTwSQKrEH9QDzRyIOZdRYA7NEhsIUPsAXZili8KLJYpRYO2TfL8UjGzEERdQGNl RMajQEYaDYMtEvq8KPPuTACaBS7CWzNgYOFgHQB9QO AoSGLbXZWwvs3XEISrQUCaLFm7QIEgFUVrCZXbJLdmVQCeYzU0DHLuELNwBINvTD4ZHyKeTJIuGEK5Ox KuTWJvDUUzgg3LPKHrAJCbRhJ6ZFZkKTRkUVLhTLr8ddNjwWPvYNa2TO5CO6VmuwCnKVNDZv4Ft839IF SmPOOjBf3AQ4qpWe6zRGJkSNHFRe6ZFPg3ITLqJzKs OlVfApUgDNWbSxDxZyA5S2YxG4C1KTUzYBU+OIt7CuWwGxFgKLK4I0HwIlGpFWG5XTR9DiPjBRm0VtVf XM9yMISHWo6+GVpriXTmpKmeZJFPGgErMzysUG9CZWZIJ7RLHa== ID Date Data Source [id number] 11/25/2019 09:24:58 AM EDT [facility] Name Value Range Interpretation Code Description Data Grace rce(s) Supporting Document(s) LMW Heparin [Mass/time] in 24 hour Urine 0.13 IU/ml [facility] ID Date Data Source [id number] 11/25/2019 08:02:41 AM EDT [facility] Value Range Interpretation Code Description Data Grace rce(s) Supporting Document(s) Glucose [Mass/volume] in Capillary blood by Glucometer 143 mg/dL 70- 140 H [facility] ID Date Data Source [id number] 11/25/2019 04:45:59 AM EDT [facility] Name Value Range Interpretation Code Description Data Grace rce(s) Supporting Document(s) Magnesium [Mass/volume] in Serum or Plasma 2.0 mg/dL 1.6-2.4 [facility] ID Date Data Source [id number] 11/25/2019 04:45:59 AM [facility] Value Range Interpretation Code Description Data Grace rce(s) Supporting Document(s) Phosphate [Mass/volume] in Serum or Plasma 4.3 mg/dL 2.5-4.5 [facility] ID Date Data Source [id number] 11/25/2019 08:43:28 AM [facility] Value Range Interpretation Code Description Data Grace rce(s) Supporting Document(s) Potassium [Moles/volume] in Serum or Plasma 4.3 mmol/L 3.4-5.1 [facility] ID Date Data Source [id number] 11/25/2019 04:29:18 AM [facility] Value Range Interpretation Code Description Data Grace rce(s) Supporting Document(s) Glucose [Mass/volume] in Capillary blood by Glucometer 130 mg/dL 70- 140 [facility] ID Date Data Source [id number] 11/25/2019 04:23:13 AM [facility] Value Range Interpretation Code Description Data Grace rce(s) Supporting Document(s) Calcium.ionized [Moles/volume] in Arterial blood 1.14 mmol/L 1.13-1.3 2 [facility] ID Date Data Source [id number] 11/25/2019 12:18:20 AM [facility] Value Range Interpretation Code Description Data Grace rce(s) Supporting Document(s) Glucose [Mass/volume] in Capillary blood by Glucometer 136 mg/dL 70- 140 [facility] ID Date Data Source [id number] 11/24/2019 08:31:24 PM [facility] Value Range Interpretation Code Description Data Grace rce(s) Supporting Document(s) Glucose [Mass/volume] in Capillary blood by Glucometer 129 mg/dL 70- 140 [facility] ID Date Data Source [id number] 11/24/2019 04:04:47 PM [facility] Value Range Interpretation Code Description Data Grace rce(s) Supporting Document(s) Glucose [Mass/volume] in Capillary blood by Glucometer 115 mg/dL 70- 140 [facility] ID Date Data Source [id number] 11/24/2019 12:03:42 PM [facility] Value Range Interpretation Code Description Data Grace rce(s) Supporting Document(s) Glucose [Mass/volume] in Capillary blood by Glucometer 153 mg/dL 70- 140 H [facility] ID Date Data Source [id number] 11/24/2019 08:12:15 AM [facility] Value Range Interpretation Code Description Data Grace rce(s) Supporting Document(s) Glucose [Mass/volume] in Capillary blood by Glucometer 142 mg/dL 70- 140 H [facility] ID Date Data Source [id number] 11/24/2019 04:33:22 AM [facility] Value Range Interpretation Code Description Data Grace rce(s) Supporting Document(s) Glucose [Mass/volume] in Capillary blood by Glucometer 136 mg/dL 70- 140 [facility] ID Date Data Source [id number] 11/24/2019 05:02:11 AM [facility] Value Range Interpretation Code Description Data Grace rce(s) Supporting Document(s) Leukocytes [#/volume] in Blood by Automated count 8.3 10*3/uL 4-10 [facility] Erythrocytes [#/volume] in Blood by Automated count 3.20 10*6/uL 4.1- 5.3 [facility] Hemoglobin [Mass/volume] in Blood 9.3 g/dL 11.5-15.5 [facility] Hematocrit [Volume Fraction] of Blood by Automated count 28.6 % 3 6-45 [facility] Erythrocyte mean corpuscular volume [Entitic volume] by Auto mated count 89.3 fL 80-96 [facility] Erythrocyte mean corpuscular hemoglobin [Entitic mass] by Automated count 29.2 pg 27-33 [facility] Erythrocyte mean corpuscular hemoglobin concentration [Mass/volume] by Automated count 32.6 g/dL 32.0-36.0 [facility] distribution width [Ratio] by Automated count 17.4 % 11.5-14.5 [facility] Platelets [#/volume] in Blood by Automated count 358 10*3/uL 150-400 [facility] Differential cell count method - Blood [facility] Neutrophils/100 leukocytes in Blood by Automated count 66 % [facility] Lymphocytes/100 leukocytes in Blood by Automated count 18 % [facility] Monocytes/100 leukocytes in Blood by Automated count 11 % [facility] Eosinophils/100 leukocytes in Blood by Automated count 4 % [facility] Basophils/100 leukocytes in Blood by Automated count 1 % [facility] Neutrophils [#/volume] in Blood by Automated count 5.53 10*3/uL 1.8-7 .0 [facility] Lymphocytes [#/volume] in Blood by Automated count 1.47 10*3/uL 1.2-4 .0 [facility] Monocytes [#/volume] in Blood by Automated count 0.94 10*3/uL 0-0.8 H [facility] Eosinophils [#/volume] in Blood by Automated count 0.29 10*3/uL 0-0.5 [facility] Basophils [#/volume] in Blood by Automated count 0.10 10*3/uL 0-0.2 [facility] Nucleated erythrocytes/100 leukocytes [Ratio] in Blood by Automated count 0 /100{WBCs} 0-0 [facility] ID Date Data Source [id number] 11/24/2019 05:19:58 AM EDT [facility] Name Value Range Interpretation Code Description Data Grace rce(s) Supporting Document(s) Albumin [Mass/volume] in Serum or Plasma by Bromocresol green (BCG) dye binding method 3.4 g/dL 3.5-5.2 L [facility] Bilirubin.total [Mass/volume] in Serum or Plasma 0.3 mg/dL <1.2 [facility] Calcium [Mass/volume] in Serum or Plasma 9.4 mg/dL 8.8-10.2 [facility] Chloride [Moles/volume] in Serum or Plasma 96 mmol/L 98-107 L [facility] Creatinine [Mass/volume] in Serum or Plasma 0.37 mg/dL 0.50-0.90 L [facility] Glucose [Mass/volume] in Serum or Plasma 135 mg/dL 70-140 [facility] Alkaline phosphatase [Enzymatic activity/volume] in Serum or Plasma 101 U/L 35-104 [facility] Potassium [Moles/volume] in Serum or Plasma 4.3 mmol/L 3.4-5.1 [facility] Protein [Mass/volume] in Serum or Plasma 6.3 g/dL 6.4-8.3 L [facility] Sodium [Moles/volume] in Serum or Plasma 138 mmol/L 136-145 [facility] Aspartate aminotransferase [Enzymatic activity/volume] in Se rum or Plasma 9 U/L <32 [facility] Urea nitrogen [Mass/volume] in Serum or Plasma 23 mg/dL 8-23 [facility] Osmolality of Serum or Plasma by calculation 291 mosm/kg 275-300 [facility] Creatinine/Urea nitrogen [Mass Ratio] in Serum or Plasma 62 [facility] Bicarbonate [Moles/volume] in Serum 32 mmol/L 22-29 H [facility] Alanine aminotransferase [Enzymatic activity/volume] in Seru m or Plasma 14 U/L <33 [facility] Anion gap 3 in Serum or Plasma 10 mmol/L 8-15 [facility] Glomerular filtration rate/1.73 sq M pre dicted among non-blacks [Volume Rate/Area] in Serum or Plasma by Creatinine-based formula (MDRD) >6 0 [facility] Glomerular filtration rate/1.73 sq M pre dicted among blacks [Volume Rate/Area] in Serum or Plasma by Creatinine-based formula (MDRD) >60 [facility] ID Date Data Source [id number] 11/24/2019 05:19:58 AM [facility] Name Value Range Interpretation Code Description Data Grace rce(s) Supporting Document(s) Magnesium [Mass/volume] in Serum or Plasma 2.0 mg/dL 1.6-2.4 [facility] ID Date Data Source [id number] 11/24/2019 05:19:58 AM [facility] Value Range Interpretation Code Description Data Grace rce(s) Supporting Document(s) Phosphate [Mass/volume] in Serum or Plasma 4.4 mg/dL 2.5-4.5 [facility] ID Date Data Source [id number] 11/24/2019 04:57:00 AM [facility] Value Range Interpretation Code Description Data Grace rce(s) Supporting Document(s) Calcium.ionized [Moles/volume] in Arterial blood 1.16 mmol/L 1.13-1.3 2 [facility] ID Date Data Source [id number] 11/23/2019 11:54:23 PM [facility] Value Range Interpretation Code Description Data Grace rce(s) Supporting Document(s) Glucose [Mass/volume] in Capillary blood by Glucometer 122 mg/dL 70- 140 [facility] ID Date Data Source [id number] 11/23/2019 07:52:08 PM [facility] Value Range Interpretation Code Description Data Grace rce(s) Supporting Document(s) Glucose [Mass/volume] in Capillary blood by Glucometer 115 mg/dL 70- 140 [facility] ID Date Data Source [id number] 11/23/2019 03:38:37 PM [facility] Value Range Interpretation Code Description Data Grace rce(s) Supporting Document(s) Glucose [Mass/volume] in Capillary blood by Glucometer 117 mg/dL 70- 140 [facility] ID Date Data Source [id number] 11/23/2019 12:06:15 PM [facility] Value Range Interpretation Code Description Data Grace rce(s) Supporting Document(s) Glucose [Mass/volume] in Capillary blood by Glucometer 144 mg/dL 70- 140 H [facility] ID Date Data Source [id number] 11/23/2019 08:01:10 AM [facility] Value Range Interpretation Code Description Data Grace rce(s) Supporting Document(s) Glucose [Mass/volume] in Capillary blood by Glucometer 128 mg/dL 70- 140 [facility] ID Date Data Source [id number] 11/23/2019 04:39:09 AM [facility] Value Range Interpretation Code Description Data Grace rce(s) Supporting Document(s) Leukocytes [#/volume] in Blood by Automated count 9.3 10*3/uL 4-10 [facility] Erythrocytes [#/volume] in Blood by Automated count 3.12 10*6/uL 4.1- 5.3 L [facility] Hemoglobin [Mass/volume] in Blood 9.1 g/dL 11.5-15.5 L [facility] Hematocrit [Volume Fraction] of Blood by Automated count 27.9 % 3 6-45 L [facility] Erythrocyte mean corpuscular volume [Entitic volume] by Auto mated count 89.5 fL 80-96 [facility] Erythrocyte mean corpuscular hemoglobin [Entitic mass] by Automated count 29.1 pg 27-33 [facility] Erythrocyte mean corpuscular hemoglobin concentration [Mass/volume] by Automated count 32.5 g/dL 32.0-36.0 [facility] E[facility]th[facility] distribution width [Ratio] by Automated count 17.6 % 11.5-14.5 H [facility] Platelets [#/volume] in Blood by Automated count 356 10*3/uL 150-400 [facility] Differential cell count method - Blood [facility] Neutrophils/100 leukocytes in Blood by Automated count 70 % [facility] Lymphocytes/100 leukocytes in Blood by Automated count 13 % [facility] Monocytes/100 leukocytes in Blood by Automated count 13 % [facility] Eosinophils/100 leukocytes in Blood by Automated count 3 % [facility] Basophils/100 leukocytes in Blood by Automated count 1 % [facility] Neutrophils [#/volume] in Blood by Automated count 6.53 10*3/uL 1.8-7 .0 [facility] Lymphocytes [#/volume] in Blood by Automated count 1.18 10*3/uL 1.2-4 .0 L [facility] Monocytes [#/volume] in Blood by Automated count 1.17 10*3/uL 0-0.8 H [facility] Eosinophils [#/volume] in Blood by Automated count 0.30 10*3/uL 0-0.5 [facility] Basophils [#/volume] in Blood by Automated count 0.08 10*3/uL 0-0.2 [facility] Nucleated erythrocytes/100 leukocytes [Ratio] in Blood by Automated count 0 /100{WBCs} 0-0 [facility] ID Date Data Source [id number] 11/23/2019 04:58:[address] [facility] Name Value Range Interpretation Code Description Data Grace rce(s) Supporting Document(s) Bicarbonate [Moles/volume] in Serum 31 mmol/L 22-29 H [facility] Chloride [Moles/volume] in Serum or Plasma 93 mmol/L 98-107 L [facility] Creatinine [Mass/volume] in Serum or Plasma 0.34 mg/dL 0.50-0.90 L [facility] Glucose [Mass/volume] in Serum or Plasma 158 mg/dL 70-140 H [facility] Potassium [Moles/volume] in Serum or Plasma 4.3 mmol/L 3.4-5.1 [facility] Sodium [Moles/volume] in Serum or Plasma 137 mmol/L 136-145 [facility] Urea nitrogen [Mass/volume] in Serum or Plasma 22 mg/dL 8-23 [facility] Anion gap 3 in Serum or Plasma 13 mmol/L 8-15 [facility] Osmolality of Serum or Plasma by calculation 291 mosm/kg 275-300 [facility] Creatinine/Urea nitrogen [Mass Ratio] in Serum or Plasma 65 [facility] Calcium [Mass/volume] in Serum or Plasma 9.1 mg/dL 8.8-10.2 [facility] Glomerular filtration rate/1.73 sq M pre dicted among non-blacks [Volume Rate/Area] in Serum or Plasma by Creatinine-based formula (MDRD) >6 0 [facility] Glomerular filtration rate/1.73 sq M pre dicted among blacks [Volume Rate/Area] in Serum or Plasma by Creatinine-based formula (MDRD) >60 [facility] ID Date Data Source [id number] 11/23/2019 04:58:05 AM [facility] Name Value Range Interpretation Code Description Data Grace rce(s) Supporting Document(s) Magnesium [Mass/volume] in Serum or Plasma 2.0 mg/dL 1.6-2.4 [facility] ID Date Data Source [id number] 11/23/2019 04:58:05 AM [facility] Value Range Interpretation Code Description Data Grace rce(s) Supporting Document(s) Phosphate [Mass/volume] in Serum or Plasma 4.0 mg/dL 2.5-4.5 [facility] ID Date Data Source [id number] 11/23/2019 04:35:52 AM [facility] Value Range Interpretation Code Description Data Grace rce(s) Supporting Document(s) Calcium.ionized [Moles/volume] in Arterial blood 1.19 mmol/L 1.13-1.3 2 [facility] ID Date Data Source [id number] 11/23/2019 04:07:02 AM [facility] Value Range Interpretation Code Description Data Grace rce(s) Supporting Document(s) Glucose [Mass/volume] in Capillary blood by Glucometer 149 mg/dL 70- 140 H [facility] ID Date Data Source [id number] 11/23/2019 12:55:00 AM [facility] Value Range Interpretation Code Description Data Grace rce(s) Supporting Document(s) Glucose [Mass/volume] in Capillary blood by Glucometer 129 mg/dL 70- 140 [facility] ID Date Data Source [id number] 11/22/2019 08:56:09 PM [facility] Value Range Interpretation Code Description Data Grace rce(s) Supporting Document(s) Glucose [Mass/volume] in Capillary blood by Glucometer 134 mg/dL 70- 140 [facility] ID Date Data Source [id number] 11/22/2019 04:02:33 PM [facility] Value Range Interpretation Code Description Data Grace rce(s) Supporting Document(s) Glucose [Mass/volume] in Capillary blood by Glucometer 139 mg/dL 70- 140 [facility] ID Date Data Source [id number] 11/22/2019 12:02:17 PM [facility] Value Range Interpretation Code Description Data Grace rce(s) Supporting Document(s) [facility] WKVNTi5lGnNWGwDcx2YrRaKwIJRaSK5diji8H5F0nZPoB9EurRIqk9gfZ2AsE0PbVSYyWIKWLD4BnNKk jb2 [file] vqEahGoQqkGoBqEahGoQqkGoBqEahGqg+guest experience representative+guest experience representative+guest experience representative+pN9VzAZRDYHxUPoBy7VR4VrsVygsJQRGK5g [file] [id number]/92Ht6//7G7aXk/f Cou038/j3JJ4956fxC1683+83bP3/642bsqb0nw5fda/l2bYEPJ/m/fffl19//9CaRwuu+yT9/8+7D66 G/+kHRX002/fbR3o030/buq1++jeaC23KO+l/av/o//Q0l0DCSfhkq4+9/+jI3F66P//Eu2nyailuzu6 evF/r+7Rff/fDh67/xz9tMj+bylz//2x//+qcf//Xt v/+vt9++//alhI/txft74PY+/oe3r7/73V3qr6//8t9k/svfv/3lz2/+c20/i8gAHk50Cgsts4/1Xz5h UGRGM9U//enn/8FnrykHlusF/+m0iKh2uPYH6q1z/l+PhnJ0xEAI3m7ZgGT813jae/+WPcTXaHivLm/f UCdT+Z4maJfW7/VTlUWhnGhXP/7bj3/7h2ckh7v9f7 9//+XbL95/9/H9h/efydo++9PR8z/d/iaTgd2u/j0i3U+T/9qU1Wf9QF28+FWfwl8ngn/++T//8e2vv/ /PHz+7+3yjw5DooovWa+HPHm2EbQswn9/grz++/fHP//njX//n7//9b9x+a/Tz2+e7Px/gg0c0dj5l9z u3f/0fr3f/41/+/NPbR+K6n9w+b/Fgv/h16017+gO/ 9boUeLP+619qC7dJD7r0xtdn0PsJjf+YfIZFA/3b/8a40xemb/bxZ5/efv///Pgf/0OgUX3S0KphFesz d56gV//z/va//vovf/+TX+/v8Isf//T7f//sC6/P8K9+/z/+8Pv/+OPv//eCc2ewib39y//XBzx6+viX v/zpiztQWH/vbh3Hn2/5wxdysVPGsZssUHD/4NOPf/ i//ijGJ3lb7ymLw1d59u/2SbxQ4A//9y2hUgxnt/jqm9dI/Rq/33/1uc5HVtVsxC/96jWEf/2JH7e4Ed 3//4q4HFR1IURux9//f/74Jm9/+bc3+YvLm51Sb3Fe9hvgBMiLmCw31sxxjgo46nB08pzc5802Jg/3G0 4fg8747Oen9ue711klEhYXkr79/w9ZRVl+CmVuZHN0 yaBmpEwiyyJcPinFAAnbBWPtTqa8CG4QlQKsNKKfB7J8KQWwei5kROUgMIGnnBDsAqZgOAAIMS1CuTSn IO6UQNy9EPOoNOQsIrOuBSFhfvB4ZKWiIBAtLDJpL3KtheYavMGbXHGkMx9+UN3ud5OdUiFmIBCcCwr6 NI2ScHBrED5FqWSbhP9rawGrH865jeZdHNIaHwwyg4 ZfYJedRUPNCK9QVKY8JPC7CWYoWh1+LX4tx1VcJsYyRBPxQcd0CU1EaIJcl4QaQM4QI2OeWHNzICNGUI Z1x8ZaEKRixxwasbhcK1ExGSG2jA1xVAN8RFOnLBagOQOeWHIxSpKvCBIrZCuqNFUjEQSvEVVtOJElZV k2aKUwHC3RL2MnWJJlJQIXBRVcivTeKu5vYVDYJ2gq CD9CYwsuLbr1Vav1AAurO9V9EjexL2VfTH3EZ3VoWODzHDJMBILkedOwPP0ZlwNbyT8bAWnDMZCGJIiQ HYiwNxU2u96xadFUHYLaBWKyKVcsQLMpNYLwFJDiTVCbXPPyHLZaGUOrOJ9NF8ZdSEVtMKBQRDX0u1Iu PLBmskkmpjmsEq3vpwRlDdm+BgvvBBTba9EjNEjkQ0 S7zTMeK9WrB6SeOT8ApXChUIdiATGySWAaEMOlU952ffYzZO7+WX4lk9SdFqnvHGIXGJZiENHrNWRjEM A9FoMgNPZsRVKnYZMxQpP3TrHeWcRJZWTtDQD5NiFtNpVbQPSmSOMiVSvzFMGrNGU6EVi4YKGmSJDiWE 4gCjAwMDAwNjcxNDQgMDAwMDAgbiAKMDAwMDAwMDAw MGE5ZOYnXCRbRPkkMBDvIDTmMRF3RFElMAPcUU6lLpGiVRKcNKQdSavxGTYfVHUduaDXKCCpNTIcZAC3 TvHjRXLvDUVaTKsjUDYoAABtLmz7AKVlZWRiUH4fMmSrOCVbNBV6BPcnIBGhSNMzazUGEOSmWGHjTLRy XtPjCMTrIWKdIHqkPZSrMLAiLjWsDECgTVHjOS1yMj VeSSMtCVC1RWKmPDXuDOIgzcBWGMGvUAQkANt5ZNAcUPGtOZMdOJzxLIHzNTJzLGL4EVNoLBYqZR9nWm FfENUbVYYfYFGgBHRxXWVdjeQUKMSnFNXsLVM9ILNzDMNbKSYdBSdjDDUpSHXzUoc2KHSqYKPcBD4zEd RzZBOvOTH7GATyUOJsITEdwjQAVEItKAP2Dqv4RDLr OTSuXSHgJIysQHSbSMUmVfX7ZMLfKDBmRY3pWxMkDUNzSST5FfKlSOTnIZUrreXQJHItTGQqGXT6IcEj NRCrMJQcYHqjQYWqFLPuFHYbJEX4XRN6YPGkYiCzMOjrGBVBXOsDM0QbodYeRjAAR6klZk3hOgRzJAQS A9Awb7UkDDZqRQTQUe1+IoO4REI9lMYvEle6YcF0QaiuYRJIWg== ID Date Data Source [id number] 11/22/2019 11:55:37 AM EDT [facility] Value Range Interpretation Code Description Data Grace rce(s) Supporting Document(s) Glucose [Mass/volume] in Capillary blood by Glucometer 162 mg/dL 70- 140 H [facility] ID Date Data Source [id number] [facility] Description Data Grace rce(s) Supporting Document(s) Troponin T.cardiac [Mass/volume] in Serum or Plasma <0.01 [facility] ID Date Data Source [id number] 11/22/2019 08:01:43 AM EDT [facility] Value Range Interpretation Code Description Data Grace rce(s) Supporting Document(s) Glucose [Mass/volume] in Capillary blood by Glucometer 132 mg/dL 70- 140 [facility] ID Date Data Source [id number] [facility] Code Description Data Grace rce(s) Supporting Document(s) Leukocytes [#/volume] in Blood by Automated count 9.3 10*3/uL 4-10 [facility] Erythrocytes [#/volume] in Blood by Automated count 3.06 10*6/uL 4.1- 5.3 L [facility] Hemoglobin [Mass/volume] in Blood 8.8 g/dL 11.5-15.5 L [facility] Hematocrit [Volume Fraction] of Blood by Automated count 27.3 % 3 6-45 L [facility] Erythrocyte mean corpuscular volume [Entitic volume] by Auto mated count 89.3 fL 80-96 [facility] Erythrocyte mean corpuscular hemoglobin [Entitic mass] by Automated count 28.7 pg 27-33 [facility] Erythrocyte mean corpuscular hemoglobin concentration [Mass/volume] by Automated count 32.1 g/dL 32.0-[facility] width [Ratio] by Automated count 17.5 % 11.5-14.5 H [facility] Platelets [#/volume] in Blood by Automated count 358 10*3/uL 150-400 [facility] Differential cell count method - Blood [facility] Neutrophils/100 leukocytes in Blood by Automated count 68 % [facility] Lymphocytes/100 leukocytes in Blood by Automated count 14 % [facility] Monocytes/100 leukocytes in Blood by Automated count 13 % [facility] Eosinophils/100 leukocytes in Blood by Automated count 4 % [facility] Basophils/100 leukocytes in Blood by Automated count 1 % [facility] Neutrophils [#/volume] in Blood by Automated count 6.39 10*3/uL 1.8-7 .0 [facility] Lymphocytes [#/volume] in Blood by Automated count 1.26 10*3/uL 1.2-4 .0 [facility] Monocytes [#/volume] in Blood by Automated count 1.20 10*3/uL 0-0.8 H [facility] Eosinophils [#/volume] in Blood by Automated count 0.32 10*3/uL 0-0.5 [facility] Basophils [#/volume] in Blood by Automated count 0.09 10*3/uL 0-0.2 [facility] Nucleated erythrocytes/100 leukocytes [Ratio] in Blood by Automated count 0 /100{WBCs} 0-0 [facility] ID Date Data Source [id number] 11/22/2019 05:49:[address] [facility] Name Value Range Interpretation Code Description Data Grace rce(s) Supporting Document(s) Bicarbonate [Moles/volume] in Serum 33 mmol/L 22-29 H [facility] Chloride [Moles/volume] in Serum or Plasma 96 mmol/L 98-107 L [facility] Creatinine [Mass/volume] in Serum or Plasma 0.37 mg/dL 0.50-0.90 L [facility] Glucose [Mass/volume] in Serum or Plasma 153 mg/dL 70-140 H [facility] Potassium [Moles/volume] in Serum or Plasma 4.5 mmol/L 3.4-5.1 [facility] Sodium [Moles/volume] in Serum or Plasma 136 mmol/L 136-145 [facility] Urea nitrogen [Mass/volume] in Serum or Plasma 23 mg/dL 8-23 [facility] Anion gap 3 in Serum or Plasma 7 mmol/L 8-15 L [facility] Osmolality of Serum or Plasma by calculation 289 mosm/kg 275-300 [facility] Creatinine/Urea nitrogen [Mass Ratio] in Serum or Plasma 62 [facility] Calcium [Mass/volume] in Serum or Plasma 8.8 mg/dL 8.8-10.2 [facility] Glomerular filtration rate/1.73 sq M pre dicted among non-blacks [Volume Rate/Area] in Serum or Plasma by Creatinine-based formula (MDRD) >6 0 [facility] Glomerular filtration rate/1.73 sq M pre dicted among blacks [Volume Rate/Area] in Serum or Plasma by Creatinine-based formula (MDRD) >60 [facility] ID Date Data Source [id number] 11/22/2019 05:49:27 AM [facility] Name Value Range Interpretation Code Description Data Grace rce(s) Supporting Document(s) Magnesium [Mass/volume] in Serum or Plasma 2.0 mg/dL 1.6-2.4 [facility] ID Date Data Source [id number] 11/22/2019 05:49:27 AM [facility] Name Value Range Interpretation Code Description Data Grace rce(s) Supporting Document(s) Phosphate [Mass/volume] in Serum or Plasma 4.0 mg/dL 2.5-4.5 [facility] ID Date Data Source [id number] 11/22/2019 05:26:09 AM [facility] Name Value Range Interpretation Code Description Data Grace rce(s) Supporting Document(s) Calcium.ionized [Moles/volume] in Arterial blood 1.17 mmol/L 1.13-1.3 2 [facility] ID Date Data Source [id number] 11/22/2019 05:08:57 AM [facility] Name Value Range Interpretation Code Description Data Grace rce(s) Supporting Document(s) Glucose [Mass/volume] in Capillary blood by Glucometer 150 mg/dL 70- 140 H [facility] ID Date Data Source [id number] 11/22/2019 12:25:07 AM [facility] Name Value Range Interpretation Code Description Data Grace rce(s) Supporting Document(s) Glucose [Mass/volume] in Capillary blood by Glucometer 134 mg/dL 70- 140 [facility] ID Date Data Source [id number] 11/21/2019 08:45:52 PM [facility] Value Range Interpretation Code Description Data Grace rce(s) Supporting Document(s) Glucose [Mass/volume] in Capillary blood by Glucometer 127 mg/dL 70- 140 [facility] ID Date Data Source [id number] 11/21/2019 04:11:12 PM [facility] Name Value Range Interpretation Code Description Data Grace rce(s) Supporting Document(s) Glucose [Mass/volume] in Capillary blood by Glucometer 141 mg/dL 70- 140 H [facility] ID Date Data Source [id number] 11/21/2019 01:35:42 PM [facility] XR CHEST FRONTAL ONLY [id number] RESULTI nterpreted by:Ignacio Cantu MDINDICATION: Dyspnea.TECHNIQUE: Portable [...] rce(s) Supporting Document(s) ID Date Data Source [id number] 11/21/2019 12:01:25 PM [facility] Name Value Range Interpretation Code Description Data Grace rce(s) Supporting Document(s) Glucose [Mass/volume] in Capillary blood by Glucometer 146 mg/dL 70- 140 H [facility] ID Date Data Source [id number] 11/21/2019 08:34:21 AM [facility] Name Value Range Interpretation Code Description Data Grace rce(s) Supporting Document(s) Glucose [Mass/volume] in Capillary blood by Glucometer 149 mg/dL 70- 140 H [facility] ID Date Data Source [id number] 11/21/2019 05:09:11 AM [facility] Name Value Range Interpretation Code Description Data Grace rce(s) Supporting Document(s) Leukocytes [#/volume] in Blood by Automated count 13.3 10*3/uL 4-10 H [facility] Erythrocytes [#/volume] in Blood by Automated count 3.05 10*6/uL 4.1- 5.3 L [facility] Hemoglobin [Mass/volume] in Blood 8.8 g/dL 11.5-15.5 [facility] Hematocrit [Volume Fraction] of Blood by Automated count 27.2 % 3 6-45 L [facility] Erythrocyte mean corpuscular volume [Entitic volume] by Auto mated count 89.3 fL 80-96 [facility] Erythrocyte mean corpuscular hemoglobin [Entitic mass] by Automated count 28.7 pg 27-33 [facility] Erythrocyte mean corpuscular hemoglobin concentration [Mass/volume] by Automated count 32.2 g/dL 32.0-36.0 [facility] distribution width [Ratio] by Automated count 17.3 % 11.5-14.5 H [facility] Platelets [#/volume] in Blood by Automated count 377 10*3/uL 150-400 [facility] Differential cell count method - Blood [facility] Neutrophils/100 leukocytes in Blood by Automated count 78 % [facility] Lymphocytes/100 leukocytes in Blood by Automated count 8 % [facility] Monocytes/100 leukocytes in Blood by Automated count 10 % [facility] Eosinophils/100 leukocytes in Blood by Automated count 3 % [facility] Basophils/100 leukocytes in Blood by Automated count 1 % [facility] Neutrophils [#/volume] in Blood by Automated count 10.34 10*3/uL 1.8- 7.0 H [facility] Lymphocytes [#/volume] in Blood by Automated count 1.12 10*3/uL 1.2-4 .0 L [facility] Monocytes [#/volume] in Blood by Automated count 1.35 10*3/uL 0-0.8 H [facility] Eosinophils [#/volume] in Blood by Automated count 0.40 10*3/uL 0-0.5 [facility] Basophils [#/volume] in Blood by Automated count 0.09 10*3/uL 0-0.2 [facility] Nucleated erythrocytes/100 leukocytes [Ratio] in Blood by Automated count 0 /100{WBCs} 0-0 [facility] ID Date Data Source [id number] 11/21/2019 05:31:[address] [facility] Name Value Range Interpretation Code Description Data Grace rce(s) Supporting Document(s) Bicarbonate [Moles/volume] in Serum 32 mmol/L 22-29 H [facility] Chloride [Moles/volume] in Serum or Plasma 95 mmol/L 98-107 L [facility] Creatinine [Mass/volume] in Serum or Plasma 0.38 mg/dL 0.50-0.90 L [facility] Glucose [Mass/volume] in Serum or Plasma 162 mg/dL 70-140 H [facility] Potassium [Moles/volume] in Serum or Plasma 4.4 mmol/L 3.4-5.1 [facility] Sodium [Moles/volume] in Serum or Plasma 136 mmol/L 136-145 [facility] Urea nitrogen [Mass/volume] in Serum or Plasma 22 mg/dL 8-23 [facility] Anion gap 3 in Serum or Plasma 9 mmol/L 8-15 [facility] Osmolality of Serum or Plasma by calculation 289 mosm/kg 275-300 [facility] Creatinine/Urea nitrogen [Mass Ratio] in Serum or Plasma 57 [facility] Calcium [Mass/volume] in Serum or Plasma 8.9 mg/dL 8.8-10.2 [facility] Glomerular filtration rate/1.73 sq M pre dicted among non-blacks [Volume Rate/Area] in Serum or Plasma by Creatinine-based formula (MDRD) >6 0 [facility] Glomerular filtration rate/1.73 sq M pre dicted among blacks [Volume Rate/Area] in Serum or Plasma by Creatinine-based formula (MDRD) >60 [facility] ID Date Data Source [id number] 11/21/2019 05:31:27 AM [facility] Value Range Interpretation Code Description Data Grace rce(s) Supporting Document(s) Magnesium [Mass/volume] in Serum or Plasma 2.0 mg/dL 1.6-2.4 [facility] ID Date Data Source [id number] 11/21/2019 05:31:27 AM [facility] Value Range Interpretation Code Description Data Grace rce(s) Supporting Document(s) Phosphate [Mass/volume] in Serum or Plasma 3.5 mg/dL 2.5-4.5 [facility] ID Date Data Source [id number] 11/21/2019 05:15:12 AM [facility] Value Range Interpretation Code Description Data Grace rce(s) Supporting Document(s) Calcium.ionized [Moles/volume] in Arterial blood 1.13 mmol/L 1.13-1.3 2 [facility] ID Date Data Source [id number] 11/21/2019 04:07:03 AM [facility] Value Range Interpretation Code Description Data Grace rce(s) Supporting Document(s) Glucose [Mass/volume] in Capillary blood by Glucometer 135 mg/dL 70- 140 [facility] ID Date Data Source [id number] 11/21/2019 12:16:36 AM [facility] Value Range Interpretation Code Description Data Grace rce(s) Supporting Document(s) Glucose [Mass/volume] in Capillary blood by Glucometer 128 mg/dL 70- 140 [facility] ID Date Data Source [id number] 11/20/2019 08:08:09 PM [facility] Value Range Interpretation Code Description Data Grace rce(s) Supporting Document(s) Glucose [Mass/volume] in Capillary blood by Glucometer 143 mg/dL 70- 140 H [facility] ID Date Data Source [id number] 11/20/2019 04:47:27 PM [facility] Value Range Interpretation Code Description Data Grace rce(s) Supporting Document(s) Glucose [Mass/volume] in Capillary blood by Glucometer 129 mg/dL 70- 140 [facility] ID Date Data Source [id number] 11/20/2019 11:57:16 AM [facility] Name Value Range Interpretation Code Description Data Grace rce(s) Supporting Document(s) Glucose [Mass/volume] in Capillary blood by Glucometer 169 mg/dL 70- 140 H [facility] ID Date Data Source [id number] 11/20/2019 10:47:57 AM [facility] Name Value Range Interpretation Code Description Data Grace rce(s) Supporting Document(s) Leukocytes [#/volume] in Blood by Automated count 14.2 10*3/uL 4-10 H [facility] Erythrocytes [#/volume] in Blood by Automated count 3.16 10*6/uL 4.1- 5.3 L [facility] Hemoglobin [Mass/volume] in Blood 9.3 g/dL 11.5-15.5 [facility] Hematocrit [Volume Fraction] of Blood by Automated count 28.4 % 3 6-45 L [facility] Erythrocyte mean corpuscular volume [Entitic volume] by Auto mated count 89.9 fL 80-96 [facility] Erythrocyte mean corpuscular hemoglobin [Entitic mass] by Automated count 29.3 pg 27-33 [facility] Erythrocyte mean corpuscular hemoglobin concentration [Mass/volume] by Automated count 32.6 g/dL 32.0-36.0 [facility] width [Ratio] by Automated count 16.8 % 11.5-14.5 [facility] Platelets [#/volume] in Blood by Automated count 434 10*3/uL 150-400 H [facility] Differential cell count method - Blood [facility] Neutrophils/100 leukocytes in Blood by Automated count 80 % [facility] Lymphocytes/100 leukocytes in Blood by Automated count 8 % [facility] Monocytes/100 leukocytes in Blood by Automated count 9 % [facility] Eosinophils/100 leukocytes in Blood by Automated count 2 % [facility] Basophils/100 leukocytes in Blood by Automated count 1 % [facility] Neutrophils [#/volume] in Blood by Automated count 11.35 10*3/uL 1.8- 7.0 H [facility] Lymphocytes [#/volume] in Blood by Automated count 1.12 10*3/uL 1.2-4 .0 L [facility] Monocytes [#/volume] in Blood by Automated count 1.23 10*3/uL 0-0.8 H [facility] Eosinophils [#/volume] in Blood by Automated count 0.35 10*3/uL 0-0.5 [facility] Basophils [#/volume] in Blood by Automated count 0.12 10*3/uL 0-0.2 [facility] Nucleated erythrocytes/100 leukocytes [Ratio] in Blood by Automated count 0 /100{WBCs} 0-0 [facility] ID Date Data Source [id number] 11/20/2019 08:11:35 AM [facility] Name Value Range Interpretation Code Description Data Grace rce(s) Supporting Document(s) Glucose [Mass/volume] in Capillary blood by Glucometer 177 mg/dL 70- 140 H [facility] ID Date Data Source [id number] 11/20/2019 05:02:30 AM [facility] Name Value Range Interpretation Code Description Data Grace rce(s) Supporting Document(s) Bicarbonate [Moles/volume] in Serum 34 mmol/L 22-29 H [facility] Chloride [Moles/volume] in Serum or Plasma 94 mmol/L 98-107 L [facility] Creatinine [Mass/volume] in Serum or Plasma 0.34 mg/dL 0.50-0.90 L [facility] Glucose [Mass/volume] in Serum or Plasma 150 mg/dL 70-140 H [facility] Potassium [Moles/volume] in Serum or Plasma 4.3 mmol/L 3.4-5.1 [facility] Sodium [Moles/volume] in Serum or Plasma 134 mmol/L 136-145 L [facility] Urea nitrogen [Mass/volume] in Serum or Plasma 20 mg/dL 8-23 [facility] Anion gap 3 in Serum or Plasma 6 mmol/L 8-15 L [facility] Osmolality of Serum or Plasma by calculation 282 mosm/kg 275-300 [facility] Creatinine/Urea nitrogen [Mass Ratio] in Serum or Plasma 59 [facility] Calcium [Mass/volume] in Serum or Plasma 8.9 mg/dL 8.8-10.2 [facility] Glomerular filtration rate/1.73 sq M pre dicted among non-blacks [Volume Rate/Area] in Serum or Plasma by Creatinine-based formula (MDRD) >6 0 [facility] Glomerular filtration rate/1.73 sq M pre dicted among blacks [Volume Rate/Area] in Serum or Plasma by Creatinine-based formula (MDRD) >60 [facility] ID Date Data Source [id number] 11/20/2019 05:02:30 AM [facility] Value Range Interpretation Code Description Data Grace rce(s) Supporting Document(s) Magnesium [Mass/volume] in Serum or Plasma 2.0 mg/dL 1.6-2.4 [facility] ID Date Data Source [id number] 11/20/2019 05:02:30 AM [facility] Value Range Interpretation Code Description Data Grace rce(s) Supporting Document(s) Phosphate [Mass/volume] in Serum or Plasma 3.5 mg/dL 2.5-4.5 [facility] ID Date Data Source [id number] 11/20/2019 04:40:15 AM [facility] Value Range Interpretation Code Description Data Grace rce(s) Supporting Document(s) Calcium.ionized [Moles/volume] in Arterial blood 1.19 mmol/L 1.13-1.3 2 [facility] ID Date Data Source [id number] 11/20/2019 04:17:17 AM [facility] Value Range Interpretation Code Description Data Grace rce(s) Supporting Document(s) Glucose [Mass/volume] in Capillary blood by Glucometer 133 mg/dL 70- 140 [facility] ID Date Data Source [id number] 11/19/2019 11:38:49 PM [facility] Value Range Interpretation Code Description Data Grace rce(s) Supporting Document(s) Glucose [Mass/volume] in Capillary blood by Glucometer 159 mg/dL 70- 140 H [facility] ID Date Data Source [id number] 11/19/2019 09:54:52 PM [facility] Value Range Interpretation Code Description Data Grace rce(s) Supporting Document(s) Glucose [Mass/volume] in Capillary blood by Glucometer 146 mg/dL 70- 140 H [facility] ID Date Data Source [id number] 11/19/2019 07:52:14 PM [facility] Value Range Interpretation Code Description Data Grace rce(s) Supporting Document(s) Glucose [Mass/volume] in Capillary blood by Glucometer 110 mg/dL 70- 140 [facility] ID Date Data Source [id number] 11/19/2019 03:53:24 PM [facility] Name Value Range Interpretation Code Description Data Grace rce(s) Supporting Document(s) Glucose [Mass/volume] in Capillary blood by Glucometer 150 mg/dL 70- 140 [facility] ID Date Data Source [id number] 11/19/2019 12:06:40 PM [facility] Value Range Interpretation Code Description Data Grace rce(s) Supporting Document(s) Glucose [Mass/volume] in Capillary blood by Glucometer 153 mg/dL 70- 140 [facility] ID Date Data Source [id number] 11/19/2019 09:05:38 AM [facility] Value Range Interpretation Code Description Data Grace rce(s) Supporting Document(s) [facility] [id number]dyuy3L9M0jVOnH3KpzHEuy0fpE5TwZ4HmMEBfPMFHWE1HzPXh jb2 [file] /SM///+M6mSJ6mVPpAy0Ye/0mk1ylu0aW/deportation examiner/+rtH 3973+GcwbW60un0/L3hv6J3cbFFynH9lNWHssz0dEE58a7jEvksK6dsIsgj2us9qsf5zj4Fxz36n6d7+ 13d1e5G27i0s3W98i1g+O9He/Yamilet/AewfeO/DnziiRtCafnJNxNRkkuBjD8zkf0ob1Edl70p2V468577 M6L2328t5R74lVAfxM/ZJlDTVVLCSh4R4JJXR05bw0 W+/mvtn3dniio27Y1ahSBoiR0qAAYvnj5oWH34r8rAiboX2pyCazn6jy2rif1sm0Bzk21k2e3+14b8d7 S08q4q0B62a3p+O9He/Yamilet/AewfeO/WytvrFlBouzGJdBHenyIkW3fii9qv4Gck71c4C307387O1V520 [file] 47293csdE441/dWTM057/fa5Qpeq786/x921lduGVq/727dPf/u3n7/+8vkX/5xYJ1C79+Tp748479bC T1//3W+//sEPM6329I/5bGf1lyx6dr28/4v/0h89H1368tp0g8/73z/20rEV99/xt59/+D6o45m48x0+ 337+9Isff/oQD+E7tvvyc1/3/Q+/fP/Dz1//t//kz1 5cQb/80n8m16nl/fvbvf/lj2+dnhBfl46//fzbz//JP72ou/eEP/3xn//lz3/4/T+9/Y//5ovxn3867m MPP3z+9O175/jEz86beh+++fzt2z/8l7L+4S/f/vTHt/E39fkb/9j7q8e+eu/xs873Zt3Pijl3mojzM0 /4m3/jT+6ROk4TV/gU2oYag8vYW+/P3/2/HW4zcYY6 081qS1XkSVnaFG/8ln1/4WueQo76/R2/7yp8r6/f+/1s72DF2cR6js/44ff//Ps//6tr6Lj6yv3//Sharon 797+++oQ47797oRb19z/ymb++eu/omE/tjf/8J2QtkC//FdsZo+Sq6J5ObmtivvUh/n9H//9r9/+/Lt/ //2Hx7+X4beD6Sq61S/+2ffSX6mx63yPX+Eezln0wi /+++///H//7l//o2faPi06+Yo8Ftj0aq06DE//w49v//Q/39/9X/70x58+3mPS/eTxesTF/v7L3/z9l3 /de20OJc6vSx+m9/5i0l1QXeBF+2H/8PLv/C+ce9DzzagMjS68sM28o3/11TRkc9/7f37/b/7h6FNJvH 97N88/m8GQhe5/o7/9rz//w1/+5K/Pd/jb3//hd//6 4QvvD/jXv/uf//i7f/uX3/3xp3+Sw3X/6//4jz9w2+mHP/3pD1+9fIDrT/7kVOrbP/3jV+Yjgl0EaHZE vP7gy+//8f/847/84/tbfPVWXnEIyk/+1vN86G//7d/fu9Y/csJ6730+8wtcae09496//GHnEJrMfvnL z999+fErzmWvufH//64aY3I5YzBL/up3/7co63cqz/ 75jW+uWUzEGgm0bW68Wi+k/fMvvrwbiZcNfJ+Mcgb8/jkglY2maHL3u/UKn/j73slfq//1d+9/12289k y7rvP0/w/hTbHwVjUhULL8ajWviQvhhiDjMyjQGDxiIPQvWgq6PC9XsPYwUMBvE3E9GLFldq7aEUXhGP WeuEDgCcGvOLECQY6QgOSvXP2IDZx3CDBxODGpSbKk FZXlfjN7BVJpJMUkEDNaT7RykeMvvVKfSJDlJb9+NH5ea3XnRgQfERJeIqx4HY2RpMLhFM1QwZDcrJ9g ehQxN060fkNpISDdQnhev2MyGYlbJIXJVN8IQZF5OBQ5ZYZaJf7+YK4kr7ZpNnTaKWVuCyl6AL1QhMMc q2KaHV3OD0RkZSOiEFNRNWX4a0RnEYBdeivqwcvzC8 UbWKP8kD4xPTI7WWNeXKxrBIPgYPDbVGW6EUNbMOqoLICmPGPmLKOmGIDdJZr4vUXdMG3AP6GmKNVcBF QAGAGridZcYa0kOZTJG9ocXB9HAwklTgi3Cxe6XNcyU0M7WhezH3FiTO7SE7VbPNKeMDONQUWqiaPpIK 1WraFreP8iTTgAUUCQNDdIFTajTpW6w75hgtVWYLGr EUSaDNfiLRAfRJWeADNbPPTqEOWaNWFyONZgVX9DL5GlATMjBEJZQBQ7s4GkFOYhtzgplywmEb6zahQd Ymo+DhojYFNks1GsTAfoX8N4rOEoZ0RtS9DrLM9EvLAoWSnoMGMoOZUuXACvP756pnSaUW5+DQ6op5Yb HbhtWWZGWLBzZMLdNJNqTFC3IzQlDJMoBZFnKITuGr T7YxLrOjMYKTYlLEP7WKt1UATkOYArKUZjZHooEZCnQCG6NDE8RTMkQLDmOS0gSvDiIEVaSxa1ZJTvCR SjUMZmthZDZNPfJHUjFMEoDZE2KZOtDOEwIUenVQUvENSjCGD4CWIiIOHgIW1fQkEnOACpFYVtGawgQN HsUFJwsfSQMOWiSHDcNJO5WkMvSECxYHKfVTgnPUFn MMXaTig0ISCdNOObZI6pVcHaAEWnKAI7VMliVIWdASTtjpPTNVMeVVSoFEZpMuKkOWHtIBVwHGytKJRs LQEoBuZoZHKvOORsUK7pLpIyAFUkBDB1FCNeQWYuQUIrvxFDXBYiNZJgCBr6BTOaHADzFVUqUDzvZYIc YDWdLCZ7KQDjEBNvEA0hEdZkULAwMCSpTDVrPYXgYM HcgoQLAFGqEAKaOCM3JFGlDFLoUKNlSEzkXKHxCDWqUrb2WIIxBXIoGG7cAdWhXBMwSUH5YQExUTXtCK DuipGKNMLrBSU7HVYoFLDnJDNvTDWfTOvtSSQsZAOgVoE5AQLsOUCvKD8lTjJtSUDwMYO8BwQcCXWsML VhraSSYQJgHYKpILV2PsDpDLBgALIvZMmlHUBrDDSs GLTgBFC2RIO7PYSpWkCgIVxwRFKSOKdVX0CmdlCoCtKAE0ifWe4sZxFtTPZMV5Nqm1UuOPSvJMIDAt2+ YoS1WKY6dDKqHsk5RWvtBAwyYVJCPm== ID Date Data Source [id number] 11/19/2019 08:24:47 AM [facility] Name Value Range Interpretation Code Description Data Grace rce(s) Supporting Document(s) Glucose [Mass/volume] in Capillary blood by Glucometer 152 mg/dL 70- 140 H [facility] ID Date Data Source [id number] 11/19/2019 05:16:31 AM [facility] Name Value Range Interpretation Code Description Data Grace rce(s) Supporting Document(s) Leukocytes [#/volume] in Blood by Automated count 14.0 10*3/uL 4-10 H [facility] Erythrocytes [#/volume] in Blood by Automated count 3.16 10*6/uL 4.1- 5.3 L [facility] Hemoglobin [Mass/volume] in Blood 8.9 g/dL 11.5-15.5 L [facility] Hematocrit [Volume Fraction] of Blood by Automated count 28.1 % 3 6-45 L [facility] Erythrocyte mean corpuscular volume [Entitic volume] by Auto mated count 88.7 fL 80-96 [facility] Erythrocyte mean corpuscular hemoglobin [Entitic mass] by Automated count 28.1 pg 27-33 [facility] Erythrocyte mean corpuscular hemoglobin concentration [Mass/volume] by Automated count 31.7 g/dL 32.0-[facility] distribution width [Ratio] by Automated count 16.1 % 11.5-14.5 H [facility] Platelets [#/volume] in Blood by Automated count 455 10*3/uL 150-400 H [facility] Differential cell count method - Blood [facility] Neutrophils/100 leukocytes in Blood by Automated count 77 % [facility] Lymphocytes/100 leukocytes in Blood by Automated count 11 % [facility] Monocytes/100 leukocytes in Blood by Automated count 8 % [facility] Eosinophils/100 leukocytes in Blood by Automated count 3 % [facility] Basophils/100 leukocytes in Blood by Automated count 1 % [facility] Neutrophils [#/volume] in Blood by Automated count 10.69 10*3/uL 1.8- 7.0 H [facility] Lymphocytes [#/volume] in Blood by Automated count 1.58 10*3/uL 1.2-4 .0 [facility] Monocytes [#/volume] in Blood by Automated count 1.14 10*3/uL 0-0.8 [facility] Eosinophils [#/volume] in Blood by Automated count 0.46 10*3/uL 0-0.5 [facility] Basophils [#/volume] in Blood by Automated count 0.16 10*3/uL 0-0.2 [facility] Nucleated erythrocytes/100 leukocytes [Ratio] in Blood by Automated count 0 /100{WBCs} 0-0 [facility] ID Date Data Source [id number] 11/19/2019 05:26:50 AM [facility] Name Value Range Interpretation Code Description Data Grace rce(s) Supporting Document(s) Magnesium [Mass/volume] in Serum or Plasma 2.0 mg/dL 1.6-2.4 [facility] ID Date Data Source [id number] 11/19/2019 05:26:50 AM [facility] Name Value Range Interpretation Code Description Data Grace rce(s) Supporting Document(s) Phosphate [Mass/volume] in Serum or Plasma 2.8 mg/dL 2.5-4.5 [facility] ID Date Data Source [id number] 11/19/2019 05:04:13 AM [facility] Name Value Range Interpretation Code Description Data Grace rce(s) Supporting Document(s) Calcium.ionized [Moles/volume] in Arterial blood 1.18 mmol/L 1.13-1.3 2 [facility] ID Date Data Source [id number] 11/19/2019 04:04:17 AM [facility] Name Value Range Interpretation Code Description Data Grace rce(s) Supporting Document(s) Glucose [Mass/volume] in Capillary blood by Glucometer 148 mg/dL 70- 140 H [facility] ID Date Data Source [id number] 11/19/2019 12:16:13 AM [facility] Name Value Range Interpretation Code Description Data Grace rce(s) Supporting Document(s) Glucose [Mass/volume] in Capillary blood by Glucometer 157 mg/dL 70- 140 H [facility] ID Date Data Source [id number] 11/18/2019 10:23:10 PM [facility] XR CHEST FRONTAL ONLY [id number] RESULTI nterpreted by:Daniel Ma MDINDICATION: Intubated.TECHNIQUE: A single frontal view of the chest was obtained.COMPARISON: Chest radiograph dated 11/06/2019.FINDINGS: Endotracheal tube terminates 2.7 cm above the faraz. Enteric tube traverses below the diaphragm with the distal tip out of the [id number]. Left PICC terminates in the SVC. The [...] rce(s) Supporting Document(s) ID Date Data Source [id number] 11/18/2019 10:32:54 PM [facility] Value Range Interpretation Code Description Data Grace rce(s) Supporting Document(s) Glucose [Mass/volume] in Capillary blood by Glucometer 157 mg/dL 70- 140 H [facility] ID Date Data Source [id number] 11/18/2019 08:15:49 PM [facility] Value Range Interpretation Code Description Data Grace rce(s) Supporting Document(s) Glucose [Mass/volume] in Capillary blood by Glucometer 162 mg/dL 70- 140 H [facility] ID Date Data Source [id number] 11/18/2019 04:05:39 PM [facility] Value Range Interpretation Code Description Data Grace rce(s) Supporting Document(s) Glucose [Mass/volume] in Capillary blood by Glucometer 160 mg/dL 70- 140 H [facility] ID Date Data Source [id number] 11/18/2019 12:17:54 PM [facility] Value Range Interpretation Code Description Data Grace rce(s) Supporting Document(s) Glucose [Mass/volume] in Capillary blood by Glucometer 150 mg/dL 70- 140 H [facility] ID Date Data Source [id number] 11/18/2019 08:44:09 AM [facility] Value Range Interpretation Code Description Data Grace rce(s) Supporting Document(s) Glucose [Mass/volume] in Capillary blood by Glucometer 159 mg/dL 70- 140 H [facility] ID Date Data Source [id number] 11/18/2019 04:10:42 AM [facility] Value Range Interpretation Code Description Data Grace rce(s) Supporting Document(s) Glucose [Mass/volume] in Capillary blood by Glucometer 166 mg/dL 70- 140 H [facility] ID Date Data Source [id number] 11/18/2019 02:46:12 AM [facility] Value Range Interpretation Code Description Data Grace rce(s) Supporting Document(s) Leukocytes [#/volume] in Blood by Automated count 12.2 10*3/uL 4-10 H [facility] Erythrocytes [#/volume] in Blood by Automated count 3.13 10*6/uL 4.1- 5.3 L [facility] Hemoglobin [Mass/volume] in Blood 8.7 g/dL 11.5-15.5 L [facility] Hematocrit [Volume Fraction] of Blood by Automated count 27.9 % 3 6-45 L [facility] Erythrocyte mean corpuscular volume [Entitic volume] by Auto mated count 89.3 fL 80-96 [facility] Erythrocyte mean corpuscular hemoglobin [Entitic mass] by Automated count 27.9 pg 27-33 [facility] Erythrocyte mean corpuscular hemoglobin concentration [Mass/volume] by Automated count 31.2 g/dL 32.0-36.0 [facility] distribution width [Ratio] by Automated count 15.8 % 11.5-14.5 H [facility] Platelets [#/volume] in Blood by Automated count 488 10*3/uL 150-400 H [facility] Differential cell count method - Blood [facility] Neutrophils/100 leukocytes in Blood by Automated count 72 % [facility] Lymphocytes/100 leukocytes in Blood by Automated count 14 % [facility] Monocytes/100 leukocytes in Blood by Automated count 8 % [facility] Eosinophils/100 leukocytes in Blood by Automated count 5 % [facility] Basophils/100 leukocytes in Blood by Automated count 1 % [facility] Neutrophils [#/volume] in Blood by Automated count 8.85 10*3/uL 1.8-7 .0 H [facility] Lymphocytes [#/volume] in Blood by Automated count 1.70 10*3/uL 1.2-4 .0 [facility] Monocytes [#/volume] in Blood by Automated count 0.98 10*3/uL 0-0.8 H [facility] Eosinophils [#/volume] in Blood by Automated count 0.56 10*3/uL 0-0.5 [facility] Basophils [#/volume] in Blood by Automated count 0.17 10*3/uL 0-0.2 [facility] Nucleated erythrocytes/100 leukocytes [Ratio] in Blood by Automated count 0 /100{WBCs} 0-0 [facility] ID Date Data Source [id number] 11/18/2019 03:04:[address] [facility] Name Value Range Interpretation Code Description Data Grace rce(s) Supporting Document(s) Bicarbonate [Moles/volume] in Serum 33 mmol/L 22-29 H [facility] Chloride [Moles/volume] in Serum or Plasma 99 mmol/L 98-107 [facility] Creatinine [Mass/volume] in Serum or Plasma 0.29 mg/dL 0.50-0.90 L [facility] Glucose [Mass/volume] in Serum or Plasma 164 mg/dL 70-140 H [facility] Potassium [Moles/volume] in Serum or Plasma 4.4 mmol/L 3.4-5.1 [facility] Sodium [Moles/volume] in Serum or Plasma 138 mmol/L 136-145 [facility] Urea nitrogen [Mass/volume] in Serum or Plasma 23 mg/dL 8-23 [facility] Anion gap 3 in Serum or Plasma 6 mmol/L 8-15 L [facility] Osmolality of Serum or Plasma by calculation 292 mosm/kg 275-300 [facility] Creatinine/Urea nitrogen [Mass Ratio] in Serum or Plasma 78 [facility] Calcium [Mass/volume] in Serum or Plasma 8.2 mg/dL 8.8-10.2 L [facility] Glomerular filtration rate/1.73 sq M pre dicted among non-blacks [Volume Rate/Area] in Serum or Plasma by Creatinine-based formula (MDRD) >6 0 [facility] Glomerular filtration rate/1.73 sq M pre dicted among blacks [Volume Rate/Area] in Serum or Plasma by Creatinine-based formula (MDRD) >60 [facility] ID Date Data Source [id number] [facility]2019 [facility] Range Interpretation Code Description Data Grace rce(s) Supporting Document(s) Phosphate [Mass/volume] in Serum or Plasma 3.2 mg/dL 2.5-4.5 [facility] ID Date Data Source [id number] 11/18/2019 03:04:31 AM [facility] Name Value Range Interpretation Code Description Data Grace rce(s) Supporting Document(s) Magnesium [Mass/volume] in Serum or Plasma 2.1 mg/dL 1.6-2.4 [facility] ID Date Data Source [id number] 11/18/2019 02:46:32 AM [facility] Name Value Range Interpretation Code Description Data Grace rce(s) Supporting Document(s) Calcium.ionized [Moles/volume] in Arterial blood 1.13 mmol/L 1.13-1.3 2 [facility] ID Date Data Source [id number] 11/17[facility]2019 [facility]47[facility] Value Range Interpretation Code Description Data Grace rce(s) Supporting Document(s) Glucose [Mass/volume] in Capillary blood by Glucometer 150 mg/dL 70- 140 H [facility] ID Date Data Source [id number] [facility] Code Description Data Grace rce(s) Supporting Document(s) Glucose [Mass/volume] in Capillary blood by Glucometer 142 mg/dL 70- 140 H [facility] ID Date Data Source [id number] [facility] Code Description Data Grace rce(s) Supporting Document(s) Glucose [Mass/volume] in Capillary blood by Glucometer 160 mg/dL 70- 140 H [facility] ID Date Data Source [id number] 11/17/2019 01:54:05 PM EDT [facility] Value Range Interpretation Code Description Data Grace rce(s) Supporting Document(s) [facility] [id number] lbm [file] ID Date Data Source [id number] 11/17[facility]2019 [facility] Name Value Range Interpretation Code Description Data Grace rce(s) Supporting Document(s) Glucose [Mass/volume] in Capillary blood by Glucometer 172 mg/dL 70- 140 H [facility] ID Date Data Source [id number] 11/17/2019 08:04:42 AM [facility] Name Value Range Interpretation Code Description Data Grace rce(s) Supporting Document(s) Glucose [Mass/volume] in Capillary blood by Glucometer 173 mg/dL 70- 140 H [facility] ID Date Data Source [id number] 11/17/2019 07:27:36 AM [facility] XR ABDOMEN AP ABD SUPINE ONLY [id number] RESULTInterpreted by:Jaqui Lowry, MDPROCEDURE INFORMATION: Exam: XR [...] CR XR ABDOMEN AP ABD SUPINE ONLY [id number] PORTABLE 11/16/2019 5:59 PM FINDINGS: Tubes, catheters [...] Date Data Source [id number] 11/17/2019 03:55:34 AM [facility] Name Value Range Interpretation Code Description Data Grace rce(s) Supporting Document(s) Glucose [Mass/volume] in Capillary blood by Glucometer 141 mg/dL 70- 140 H [facility] ID Date Data Source [id number] 11/17/2019 02:33:20 AM [facility] Name Value Range Interpretation Code Description Data Grace rce(s) Supporting Document(s) Leukocytes [#/volume] in Blood by Automated count 11.3 10*3/uL 4-10 H [facility] Erythrocytes [#/volume] in Blood by Automated count 3.06 10*6/uL 4.1- 5.3 L [facility] Hemoglobin [Mass/volume] in Blood 8.6 g/dL 11.5-15.5 L [facility] Hematocrit [Volume Fraction] of Blood by Automated count 27.5 % 3 6-45 L [facility] Erythrocyte mean corpuscular volume [Entitic volume] by Auto mated count 89.8 fL 80-96 [facility] Erythrocyte mean corpuscular hemoglobin [Entitic mass] by Automated count 28.1 pg 27-33 [facility] Erythrocyte mean corpuscular hemoglobin concentration [Mass/volume] by Automated count 31.3 g/dL 32.0-36.0 [facility] Erythrocyte distribution width [Ratio] by Automated count 16.2 % 11.5-14.5 H [facility] Platelets [#/volume] in Blood by Automated count 513 10*3/uL 150-400 H [facility] Differential cell count method - Blood [facility] Neutrophils/100 leukocytes in Blood by Automated count 70 % [facility] Lymphocytes/100 leukocytes in Blood by Automated count 16 % [facility] Monocytes/100 leukocytes in Blood by Automated count 8 % [facility] Eosinophils/100 leukocytes in Blood by Automated count 5 % [facility] Basophils/100 leukocytes in Blood by Automated count 1 % [facility] Neutrophils [#/volume] in Blood by Automated count 7.92 10*3/uL 1.8-7 .0 H [facility] Lymphocytes [#/volume] in Blood by Automated count 1.81 10*3/uL 1.2-4 .0 [facility] Monocytes [#/volume] in Blood by Automated count 0.89 10*3/uL 0-0.8 H [facility] Eosinophils [#/volume] in Blood by Automated count 0.58 10*3/uL 0-0.5 [facility] Basophils [#/volume] in Blood by Automated count 0.13 10*3/uL 0-0.2 [facility] Nucleated erythrocytes/100 leukocytes [Ratio] in Blood by Automated count 0 /100{WBCs} 0-0 [facility] ID Date Data Source [id number] 11/17/2019 02:48:49 AM [facility] Name Value Range Interpretation Code Description Data Grace rce(s) Supporting Document(s) Bicarbonate [Moles/volume] in Serum 32 mmol/L 22-29 H [facility] Chloride [Moles/volume] in Serum or Plasma 99 mmol/L 98-107 [facility] Creatinine [Mass/volume] in Serum or Plasma 0.40 mg/dL 0.50-0.90 L [facility] Glucose [Mass/volume] in Serum or Plasma 169 mg/dL 70-140 H [facility] Potassium [Moles/volume] in Serum or Plasma 4.4 mmol/L 3.4-5.1 [facility] Sodium [Moles/volume] in Serum or Plasma 136 mmol/L 136-145 [facility] Urea nitrogen [Mass/volume] in Serum or Plasma 28 mg/dL 8-23 H [facility] Anion gap 3 in Serum or Plasma 5 mmol/L 8-15 L [facility] Osmolality of Serum or Plasma by calculation 291 mosm/kg 275-300 [facility] Creatinine/Urea nitrogen [Mass Ratio] in Serum or Plasma 69 [facility] Calcium [Mass/volume] in Serum or Plasma 8.6 mg/dL 8.8-10.2 L [facility] Glomerular filtration rate/1.73 sq M pre dicted among non-blacks [Volume Rate/Area] in Serum or Plasma by Creatinine-based formula (MDRD) >6 0 [facility] Glomerular filtration rate/1.73 sq M pre dicted among blacks [Volume Rate/Area] in Serum or Plasma by Creatinine-based formula (MDRD) >60 [facility] ID Date Data Source [id number] 11/17/2019 02:48:49 AM [facility] Value Range Interpretation Code Description Data Grace rce(s) Supporting Document(s) Magnesium [Mass/volume] in Serum or Plasma 2.1 mg/dL 1.6-2.4 [facility] ID Date Data Source [id number] 11/17/2019 02:48:49 AM [facility] Value Range Interpretation Code Description Data Grace rce(s) Supporting Document(s) Phosphate [Mass/volume] in Serum or Plasma 3.2 mg/dL 2.5-4.5 [facility] ID Date Data Source [id number] 11/17/2019 02:25:36 AM [facility] Value Range Interpretation Code Description Data Grace rce(s) Supporting Document(s) Calcium.ionized [Moles/volume] in Arterial blood 1.17 mmol/L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 among non-blacks [Volume Rate/Area] in Serum or Plasma by Creatinine-based formula (MDRD) >6 0 [facility] Glomerular filtration rate/1.73 sq M pre dicted among blacks [Volume Rate/Area] in Serum or Plasma by Creatinine-based formula (MDRD) >60 [facility] ID Date Data Source [id number] 11/06/2019 04:34:59 AM [facility] Name Value Range Interpretation Code Description Data Grace rce(s) Supporting Document(s) Calcium.ionized [Moles/volume] in Arterial blood 1.04 mmol/L 1.13-1.3 2 [facility] ID Date Data Source [id number] 11/06/2019 04:34:27 AM [facility] Name Value Range Interpretation Code Description Data Grace rce(s) Supporting Document(s) Leukocytes [#/volume] in Blood by Automated count 14.0 10*3/uL 4-10 H [facility] Erythrocytes [#/volume] in Blood by Automated count 2.83 10*6/uL 4.1- 5.3 L [facility] Hemoglobin [Mass/volume] in Blood 8.2 g/dL 11.5-15.5 [facility] Hematocrit [Volume Fraction] of Blood by Automated count 24.1 % 3 6-45 L [facility] Erythrocyte mean corpuscular volume [Entitic volume] by Auto mated count 85.3 fL 80-96 [facility] Erythrocyte mean corpuscular hemoglobin [Entitic mass] by Automated count 28.9 pg 27-33 [facility] Erythrocyte mean corpuscular hemoglobin concentration [Mass/volume] by Automated count 33.9 g/dL [facility].0-[facility] width [Ratio] by Automated count 15.3 % 11.5-14.5 H [facility] Platelets [#/volume] in Blood by Automated count 271 10*3/uL 150-400 [facility] Differential cell count method - Blood [facility] Neutrophils/100 leukocytes in Blood by Automated count 78 % [facility] Lymphocytes/100 leukocytes in Blood by Automated count 9 % [facility] Monocytes/100 leukocytes in Blood by Automated count 11 % [facility] Eosinophils/100 leukocytes in Blood by Automated count 2 % [facility] Basophils/100 leukocytes in Blood by Automated count 0 % [facility] Neutrophils [#/volume] in Blood by Automated count 11.02 10*3/uL 1.8- 7.0 H [facility] Lymphocytes [#/volume] in Blood by Automated count 1.21 10*3/uL 1.2-4 .0 [facility] Monocytes [#/volume] in Blood by Automated count 1.53 10*3/uL 0-0.8 H [facility] Eosinophils [#/volume] in Blood by Automated count 0.20 10*3/uL 0-0.5 [facility] Basophils [#/volume] in Blood by Automated count 0.05 10*3/uL 0-0.2 [facility] Nucleated erythrocytes/100 leukocytes [Ratio] in Blood by Automated count 0 /100{WBCs} 0-0 [facility] ID Date Data Source [id number] 11/06/2019 04:54:34 AM T [facility] Name Value Range Interpretation Code Description Data Grace rce(s) Supporting Document(s) Bicarbonate [Moles/volume] in Serum 30 mmol/L 22-29 H [facility] Chloride [Moles/volume] in Serum or Plasma 100 mmol/L 98-107 [facility] Creatinine [Mass/volume] in Serum or Plasma 0.60 mg/dL 0.50-0.90 [facility] Glucose [Mass/volume] in Serum or Plasma 245 mg/dL 70-140 H [facility] Potassium [Moles/volume] in Serum or Plasma 3.0 mmol/L 3.4-5.1 L [facility] Sodium [Moles/volume] in Serum or Plasma 140 mmol/L 136-145 [facility] Urea nitrogen [Mass/volume] in Serum or Plasma 23 mg/dL 8-23 [facility] Anion gap 3 in Serum or Plasma 11 mmol/L 8-15 [facility] Osmolality of Serum or Plasma by calculation 302 mosm/kg 275-300 H [facility] Creatinine/Urea nitrogen [Mass Ratio] in Serum or Plasma 39 [facility] Calcium [Mass/volume] in Serum or Plasma 7.9 mg/dL 8.8-10.2 L [facility] Glomerular filtration rate/1.73 sq M pre dicted among non-blacks [Volume Rate/Area] in Serum or Plasma by Creatinine-based formula (MDRD) >6 0 [facility] Glomerular filtration rate/1.73 sq M pre dicted among blacks [Volume Rate/Area] in Serum or Plasma by Creatinine-based formula (MDRD) >60 [facility] ID Date Data Source [id number] 11/06/2019 04:54:34 AM [facility] Name Value Range Interpretation Code Description Data Grace rce(s) Supporting Document(s) Magnesium [Mass/volume] in Serum or Plasma 1.9 mg/dL 1.6-2.4 [facility] ID Date Data Source [id number] 11/06/2019 04:54:34 AM [facility] Value Range Interpretation Code Description Data Grace rce(s) Supporting Document(s) Phosphate [Mass/volume] in Serum or Plasma 2.5 mg/dL 2.5-4.5 [facility] ID Date Data Source [id number] 11/06/2019 05:01:11 AM [facility] Value Range Interpretation Code Description Data Grace rce(s) Supporting Document(s) Glucose [Mass/volume] in Capillary blood by Glucometer 214 mg/dL 70- 140 H [facility] ID Date Data Source [id number] 11/06/2019 12:45:00 AM [facility] Value Range Interpretation Code Description Data Grace rce(s) Supporting Document(s) Bicarbonate [Moles/volume] in Serum 29 mmol/L 22-29 [facility] Chloride [Moles/volume] in Serum or Plasma 104 mmol/L 98-107 [facility] Creatinine [Mass/volume] in Serum or Plasma 0.60 mg/dL 0.50-0.90 [facility] Glucose [Mass/volume] in Serum or Plasma 203 mg/dL 70-140 H [facility] Potassium [Moles/volume] in Serum or Plasma 4.0 mmol/L 3.4-5.1 [facility] Sodium [Moles/volume] in Serum or Plasma 144 mmol/L 136-145 [facility] Urea nitrogen [Mass/volume] in Serum or Plasma 23 mg/dL 8-23 [facility] Anion gap 3 in Serum or Plasma 11 mmol/L 8-15 [facility] Osmolality of Serum or Plasma by calculation 307 mosm/kg 275-300 H [facility] Creatinine/Urea nitrogen [Mass Ratio] in Serum or Plasma 38 [facility] Calcium [Mass/volume] in Serum or Plasma 7.5 mg/dL 8.8-10.2 L [facility] Glomerular filtration rate/1.73 sq M pre dicted among non-blacks [Volume Rate/Area] in Serum or Plasma by Creatinine-based formula (MDRD) >6 0 [facility] Glomerular filtration rate/1.73 sq M pre dicted among blacks [Volume Rate/Area] in Serum or Plasma by Creatinine-based formula (MDRD) >60 [facility] ID Date Data Source [id number] 11/06/2019 12:11:02 AM [facility] Name Value Range Interpretation Code Description Data Grace rce(s) Supporting Document(s) Glucose [Mass/volume] in Capillary blood by Glucometer 181 mg/dL 70- 140 H [facility] ID Date Data Source [id number] 11/05/2019 08:28:54 PM [facility] Value Range Interpretation Code Description Data Grace rce(s) Supporting Document(s) Glucose [Mass/volume] in Capillary blood by Glucometer 169 mg/dL 70- 140 H [facility] ID Date Data Source [id number] 11/05/2019 07:23:12 PM [facility] Value Range Interpretation Code Description Data Grace rce(s) Supporting Document(s) Bicarbonate [Moles/volume] in Serum 26 mmol/L 22-29 [facility] Chloride [Moles/volume] in Serum or Plasma 101 mmol/L 98-107 [facility] Creatinine [Mass/volume] in Serum or Plasma 0.64 mg/dL 0.50-0.90 [facility] Glucose [Mass/volume] in Serum or Plasma 236 mg/dL 70-140 H [facility] Potassium [Moles/volume] in Serum or Plasma 3.2 mmol/L 3.4-5.1 L [facility] Sodium [Moles/volume] in Serum or Plasma 139 mmol/L 136-145 [facility] Urea nitrogen [Mass/volume] in Serum or Plasma 25 mg/dL 8-23 H [facility] Anion gap 3 in Serum or Plasma 12 mmol/L 8-15 [facility] Osmolality of Serum or Plasma by calculation 299 mosm/kg 275-300 [facility] Creatinine/Urea nitrogen [Mass Ratio] in Serum or Plasma 38 [facility] Calcium [Mass/volume] in Serum or Plasma 7.9 mg/dL 8.8-10.2 L [facility] Glomerular filtration rate/1.73 sq M pre dicted among non-blacks [Volume Rate/Area] in Serum or Plasma by Creatinine-based formula (MDRD) >6 0 [facility] Glomerular filtration rate/1.73 sq M pre dicted among blacks [Volume Rate/Area] in Serum or Plasma by Creatinine-based formula (MDRD) >60 [facility] ID Date Data Source [id number] 11/05/2019 04:19:27 PM [facility] Name Value Range Interpretation Code Description Data Grace rce(s) Supporting Document(s) Glucose [Mass/volume] in Capillary blood by Glucometer 187 mg/dL 70- 140 H [facility] ID Date Data Source [id number] 11/05/2019 12:40:45 PM [facility] Name Value Range Interpretation Code Description Data Grace rce(s) Supporting Document(s) History and Physical [facility] KKZRZk1cNwSNQiBb80/WNPgmAMUcb5RkXMipCRq2CZrbOGNyP1LlCCQ7lZ4qDCV5NIvMYcJgGbEmNuF8 [facility] [file] AgICAgICAgICAgICAgICAgICAgICAgICAgICAgICAgICAgICAgICAgICAgICAgICAgICAgICAgICAgIC AgICAgICAgICAgICAgICAgICANCiAgICAgICAgICAgICAgICAgICAgICAgICAgICAgICAgICAgICAgIC AgICAgICAgICAgICAgICAgICAgICAgICAgICAgICAg ICAgICAgICAgICAgICAgICAgICAgICAgICAgICANCiAgICAgICAgICAgICAgICAgICAgICAgICAgICAg ICAgICAgICAgICAgICAgICAgICAgICAgICAgICAgICAgICAgICAgICAgICAgICAgICAgICAgICAgICAg ICAgICAgICAgICANCiAgICAgICAgICAgICAgICAgIC AgICAgICAgICAgICAgICAgICAgICAgICAgICAgICAgICAgICAgICAgICAgICAgICAgICAgICAgICAgIC AgICAgICAgICAgICAgICAgICAgICANCiAgICAgICAgICAgICAgICAgICAgICAgICAgICAgICAgICAgIC AgICAgICAgICAgICAgICAgICAgICAgICAgICAgICAg ICAgICAgICAgICAgICAgICAgICAgICAgICAgICAgICANCiAgICAgICAgICAgICAgICAgICAgICAgICAg ICAgICAgICAgICAgICAgICAgICAgICAgICAgICAgICAgICAgICAgICAgICAgICAgICAgICAgICAgICAg ICAgICAgICAgICAgICANCiAgICAgICAgICAgICAgIC AgICAgICAgICAgICAgICAgICAgICAgICAgICAgICAgICAgICAgICAgICAgICAgICAgICAgICAgICAgIC AgICAgICAgICAgICAgICAgICAgICAgICANCiAgICAgICAgICAgICAgICAgICAgICAgICAgICAgICAgIC AgICAgICAgICAgICAgICAgICAgICAgICAgICAgICAg ICAgICAgICAgICAgICAgICAgICAgICAgICAgICAgICAgICANCiAgICAgICAgICAgICAgICAgICAgICAg ICAgICAgICAgICAgICAgICAgICAgICAgICAgICAgICAgICAgICAgICAgICAgICAgICAgICAgICAgICAg ICAgICAgICAgICAgICAgICANCiAgICAgICAgICAgIC AgICAgICAgICAgICAgICAgICAgICAgICAgICAgICAgICAgICAgICAgICAgICAgICAgICAgICAgICAgIC AgICAgICAgICAgICAgICAgICAgICAgICAgICANCjw/uXKuH8azfIZgrxT6C8dbNm5LGp2NQV6uj7CuEH QdXBkgwdKtHrhJNyFtKFPaZdkHQpf8HFfmQR4DbOFb L4BtF8NiRMinZH2XCEVzKNPkmNZuKPAkVMMoYgS3FWLxXPdjZC7YoIEbXAmbUCSqSCGcGxNqDZEpYZSi BKQlGAUoBZAZOTEtJHVpHfCjUSShVWLzTPbcTQURDAW9NLVdTzZiSEWdYQVaLsDiFIRIGBF4PRTwWaBo CtYhNBFfTL5AYGVuS798ycRmOORCGx5+DQplbmRvYm sFBkC1NUAmj5RmDXw0EW4HEMRpJkzdg1AoXZhtFOWNOUacCH3HVTN7ZQR6YTXuMn8OQZDfC488inCqHM 7SSo2QMoGhWF4rtp5YAQrgAHEiEmdIEfn0MUypUT1BxUJsVJmPSsRaPxqlQ9EnjkPnDRTvN1IrkTTlFB 9RKMN6PGYzPa1aRYAoFHX2AkQ6GZIDBD1PSWIlNVSf nIKiNFJyXHWUGI4ZXFomCJG9PEScokTmkKPcBBfdYX4DORQbzePtJMqmWHWACQo+Zi0HCX4sx5MxPNf6 SISsEA9ods4HLDiHBlSsD2K2hAOcK9Q0BUoiYw2JDSVbGXYnNOLoXFWFRMrqDA7YZE1wpcP2LW5EnJWf QZAiIZTwjIPuBAk1G95msBEcHDmdSE9BYZO+Alise+Pg 8URWBeJFTeZYAqUqFoWWRUFjVsI7KiX9EWj7WrL2YuCB32kVftceLbDWtzJZ3UUN4hBHNaHGQJIQ6QkS UdqK9dulM3XgUyROABXvJaB97twGEbINRmRQI5HXDvIb7DQMJjS8IwnxBfvSvukjPiGBYwZLERWQ1EIZ mzguJjxOStmBorFY74zUekXE2VKn9TLjGzGZ5vzb2O cMKgBw8YRPB3VN0PSWWrVGViPDEyEKD7LVObGgPgRLjkCWWmGQTbOTQ1XGElLBJnBE0ZAgSpZEXaBIgy ImQdGLEfXNRolq6FCUFxSUF1KKt9SDSfCFKmLBHjRMzgDHIqODObPQI6JCRwEPIxRK5TSsJfQUHdIGYq SRljKIRiRJRdqj9LBWYgXJGwFSL8BmNlBUKgVTYrFN ntMYUzMVM6HGWjUTJgYDZjKW0UEjQbQZTlGPrzIfFzIHVhQXRusx5BYMZuWTPyGFg6BePuRMGyLVLyHK slTIBfVTB9EVy3QFGvFWVxSD3BLdHcTYMwKAIkIYHcZVBnFWHgpd9ZLPKsYZByCqE2UmVmETNfXIYmXD kdAQGhZQQ7QvL3UVJeWIEaLZ2VZgHxPNGbNTG7WHYu KMEuCTZjgr2PMKMbTTTtDsn6DbUlKCOeWSRgZPbpHGYmRHT3DQe0OKAzENMyOC3OLcFgGTLgAmK2EDwj RTHbPKWhvg2DUVNcBIFsVkCqIUTwJHRwJAFsGOwsBEAxUAV7FEI3ZTZwGJPhKR7TWbUzVHAwMnkiMcDc NUXhWYIsfc4GQCFxJWYfWlP0WCDtCOAvYTXmUGdcMG EvWDXiReV9ABVbRFJcFJ2OIbGjLELcHhA7GQOkBDNyJTZiog1MFXUfLOHqAFreKAWoPNOdOPDxRAblEA EiUVG9MMH6XIJeZPEeIJ4CPyBoLXLeQkmoFzDfHUNwBQTazy0JWSNaKNZ2JRC3ZNAzDNRnWPQmSNygTV ErEQLmNXC8AWLtLHCbLS7HRsBeSWSpTNL4TlAqRADv EOJzjg5SPLReLRL1REvwMkAdTYJkWRRnRVfsDDKyQNGaPUI0LYZvSUZvLO7QUoPrDZPkDPY5FcSjGLXz YDVphw6QLLTvVCM3JkO4HrFkSVAcMLSwISelCGDwHXItOeT6KESvGFRlDR7OXjDnFRHgXAKaETDcWQVi ACQvpp4BGNTnMPZ8MCZlDYHjZPVbFMGoCDanDTFuXD V1GPt6UYXyJSHlPB9GFaEpFOKrTBV9JsdjQXGrEKGdle8PAJTdRWM2HfH2PyRmOXAyXSLnQEaeBJBcIW K8IDX9CFWcNIPlSS8BXfGrLLLgHID4HLMoHFSeBMNtgn0ZOHGoHGK9Nkj7WNYaSVHpTJRpJBnvUBLyYH J9NWX0BLXoMESuIE9USdHnQKLwWRbmSoNqALKlOQNa qm3WRCUlEZG7OYNlNSXiUAIeLCItVPnkVFDrEKG6BzK3SANhIDQzTM7RVoUqAEQfUvJgEMupTIIzXIJl nv8RYVWcHIZ6FYGxWTLdWSAgWRUzYPzvQAGeCTSjWdF9HPWwVCViFU0MLoXvULnlJWYETgs1IGidZ7m5 MKH8RF9FH5Enl2DgOXzgHACDHCajIX7kuhDnRBSdVf 9XY1lQTuxbTFW8Vyu3MoUuTKY7NRImDOOiTDCmJLOrNMMxPCTbXx1rOLHbIbakJsswQWFeZUJ9CZD3WX KlPWZ6HPWhSgM5VEYcWbRcKH5DFw2PUdE3WCF2wDLaRt6HTcH5AXIQMyBhHW8CXRl= ID Date Data Source [id number] 11/05/2019 01:55:17 PM EDT [facility] Name Value Range Interpretation Code Description Data Grace rce(s) Supporting Document(s) Bicarbonate [Moles/volume] in Serum 27 mmol/L 22-29 [facility] Chloride [Moles/volume] in Serum or Plasma 103 mmol/L 98-107 [facility] Creatinine [Mass/volume] in Serum or Plasma 0.65 mg/dL 0.50-0.90 [facility] Glucose [Mass/volume] in Serum or Plasma 218 mg/dL 70-140 H [facility] Potassium [Moles/volume] in Serum or Plasma 3.5 mmol/L 3.4-5.1 [facility] Sodium [Moles/volume] in Serum or Plasma 140 mmol/L 136-145 [facility] Urea nitrogen [Mass/volume] in Serum or Plasma 24 mg/dL 8-23 H [facility] Anion gap 3 in Serum or Plasma 10 mmol/L 8-15 [facility] Osmolality of Serum or Plasma by calculation 301 mosm/kg 275-300 H [facility] Creatinine/Urea nitrogen [Mass Ratio] in Serum or Plasma 37 [facility] Calcium [Mass/volume] in Serum or Plasma 7.6 mg/dL 8.8-10.2 L [facility] Glomerular filtration rate/1.73 sq M pre dicted among non-blacks [Volume Rate/Area] in Serum or Plasma by Creatinine-based formula (MDRD) >6 0 [facility] Glomerular filtration rate/1.73 sq M pre dicted among blacks [Volume Rate/Area] in Serum or Plasma by Creatinine-based formula (MDRD) >60 [facility] ID Date Data Source [id number] 11/05/2019 04:08:36 PM EDT [facility] Name Value Range Interpretation Code Description Data Grace rce(s) Supporting Document(s) Glucose [Mass/volume] in Capillary blood by Glucometer 157 mg/dL 70- 140 H [facility] ID Date Data Source [id number] 11/07/2019 07:33:28 AM [facility] Value Range Interpretation Code Description Data Grace rce(s) Supporting Document(s) ABO and Rh group [Type] in Blood [facility] Blood group antibody screen [Presence] in Serum or Plasma [facility] 11/08/2019,0000Performed at [address] [place] [address] BY TECH [id number] [facility] ID Date Data Source [id number] [facility] Description Data Grace rce(s) Supporting Document(s) Glucose [Mass/volume] in Capillary blood by Glucometer 143 mg/dL 70- 140 H [facility] ID Date Data Source [id number] 11/05/2019 07:28:55 AM [facility] Value Range Interpretation Code Description Data Grace rce(s) Supporting Document(s) Bicarbonate [Moles/volume] in Serum 27 mmol/L 22-29 [facility] Chloride [Moles/volume] in Serum or Plasma 105 mmol/L 98-107 [facility] Creatinine [Mass/volume] in Serum or Plasma 0.59 mg/dL 0.50-0.90 [facility] Glucose [Mass/volume] in Serum or Plasma 201 mg/dL 70-140 H [facility] Potassium [Moles/volume] in Serum or Plasma 3.7 mmol/L 3.4-5.1 [facility] Sodium [Moles/volume] in Serum or Plasma 141 mmol/L 136-145 [facility] Urea nitrogen [Mass/volume] in Serum or Plasma 24 mg/dL 8-23 H [facility] Anion gap 3 in Serum or Plasma 9 mmol/L 8-15 [facility] Osmolality of Serum or Plasma by calculation 302 mosm/kg 275-300 H [facility] Creatinine/Urea nitrogen [Mass Ratio] in Serum or Plasma 41 [facility] Calcium [Mass/volume] in Serum or Plasma 7.5 mg/dL 8.8-10.2 L [facility] Glomerular filtration rate/1.73 sq M pre dicted among non-blacks [Volume Rate/Area] in Serum or Plasma by Creatinine-based formula (MDRD) >6 0 [facility] Glomerular filtration rate/1.73 sq M pre dicted among blacks [Volume Rate/Area] in Serum or Plasma by Creatinine-based formula (MDRD) >60 [facility] ID Date Data Source [id number] 11/05/2019 04:51:38 AM EDT [facility] Name Value Range Interpretation Code Description Data Grace rce(s) Supporting Document(s) Leukocytes [#/volume] in Blood by Automated count 12.1 10*3/uL 4-10 H [facility] Erythrocytes [#/volume] in Blood by Automated count 2.36 10*6/uL 4.1- 5.3 L [facility] Hemoglobin [Mass/volume] in Blood 6.8 g/dL 11.5-15.5 [facility] Hematocrit [Volume Fraction] of Blood by Automated count 19.8 % 3 6-45 [facility] No significant change since last result called Erythrocyte mean corpuscular volume [Entitic volume] by Auto mated count 84.0 fL 80-96 [facility] Erythrocyte mean corpuscular hemoglobin [Entitic mass] by Automated count 28.8 pg 27-33 [facility] Erythrocyte mean corpuscular hemoglobin concentration [Mass/volume] by Automated count 34.3 g/dL [facility].0[facility] width [Ratio] by Automated count 15.5 % 11.5-14.5 H [facility] Platelets [#/volume] in Blood by Automated count 206 10*3/uL 150-400 [facility] Differential cell count method - Blood [facility] Neutrophils/100 leukocytes in Blood by Automated count 80 % [facility] Lymphocytes/100 leukocytes in Blood by Automated count 8 % [facility] Monocytes/100 leukocytes in Blood by Automated count 11 % [facility] Eosinophils/100 leukocytes in Blood by Automated count 1 % [facility] Basophils/100 leukocytes in Blood by Automated count 0 % [facility] Neutrophils [#/volume] in Blood by Automated count 9.67 10*3/uL 1.8-7 .0 H [facility] Lymphocytes [#/volume] in Blood by Automated count 0.99 10*3/uL 1.2-4 .0 L [facility] Monocytes [#/volume] in Blood by Automated count 1.28 10*3/uL 0-0.8 H [facility] Eosinophils [#/volume] in Blood by Automated count 0.10 10*3/uL 0-0.5 [facility] Basophils [#/volume] in Blood by Automated count 0.05 10*3/uL 0-0.2 [facility] Nucleated erythrocytes/100 leukocytes [Ratio] in Blood by Automated count 0 /100{WBCs} 0-0 [facility] ID Date Data Source [id number] 11/05/2019 05:10:[address] [facility] Name Value Range Interpretation Code Description Data Grace rce(s) Supporting Document(s) Bicarbonate [Moles/volume] in Serum 27 mmol/L 22-29 [facility] Chloride [Moles/volume] in Serum or Plasma 102 mmol/L 98-107 [facility] Creatinine [Mass/volume] in Serum or Plasma 0.65 mg/dL 0.50-0.90 [facility] Glucose [Mass/volume] in Serum or Plasma 192 mg/dL 70-140 H [facility] Potassium [Moles/volume] in Serum or Plasma 2.9 mmol/L 3.4-5.1 [facility] Results called to and read back by JAVON LORA RN 8E [id number] Sodium [Moles/volume] in Serum or Plasma 139 mmol/L 136-145 [facility] Urea nitrogen [Mass/volume] in Serum or Plasma 25 mg/dL 8-23 H [facility] Anion gap 3 in Serum or Plasma 10 mmol/L 8-15 [facility] Osmolality of Serum or Plasma by calculation 297 mosm/kg 275-300 [facility] Creatinine/Urea nitrogen [Mass Ratio] in Serum or Plasma 38 [facility] Calcium [Mass/volume] in Serum or Plasma 7.7 mg/dL 8.8-10.2 L [facility] Glomerular filtration rate/1.73 sq M pre dicted among non-blacks [Volume Rate/Area] in Serum or Plasma by Creatinine-based formula (MDRD) >6 0 [facility] Glomerular filtration rate/1.73 sq M pre dicted among blacks [Volume Rate/Area] in Serum or Plasma by Creatinine-based formula (MDRD) >60 [facility] ID Date Data Source [id number] 11/05/2019 05:10:57 AM [facility] Name Value Range Interpretation Code Description Data Grace rce(s) Supporting Document(s) Magnesium [Mass/volume] in Serum or Plasma 1.8 mg/dL 1.6-2.4 [facility] ID Date Data Source [id number] 11/05/2019 05:10:57 AM [facility] Value Range Interpretation Code Description Data Grace rce(s) Supporting Document(s) Phosphate [Mass/volume] in Serum or Plasma 2.8 mg/dL 2.5-4.5 [facility] ID Date Data Source [id number] 11/05/2019 04:35:54 AM [facility] Value Range Interpretation Code Description Data Grace rce(s) Supporting Document(s) Glucose [Mass/volume] in Capillary blood by Glucometer 176 mg/dL 70- 140 H [facility] ID Date Data Source [id number] 11/05/2019 01:34:36 AM [facility] Value Range Interpretation Code Description Data Grace rce(s) Supporting Document(s) Bicarbonate [Moles/volume] in Serum 26 mmol/L 22-29 [facility] Chloride [Moles/volume] in Serum or Plasma 102 mmol/L 98-107 [facility] Creatinine [Mass/volume] in Serum or Plasma 0.70 mg/dL 0.50-0.90 [facility] Glucose [Mass/volume] in Serum or Plasma 188 mg/dL 70-140 H [facility] Potassium [Moles/volume] in Serum or Plasma 3.4 mmol/L 3.4-5.1 [facility] Sodium [Moles/volume] in Serum or Plasma 139 mmol/L 136-145 [facility] Urea nitrogen [Mass/volume] in Serum or Plasma 25 mg/dL 8-23 H [facility] Anion gap 3 in Serum or Plasma 10 mmol/L 8-15 [facility] Osmolality of Serum or Plasma by calculation 297 mosm/kg 275-300 [facility] Creatinine/Urea nitrogen [Mass Ratio] in Serum or Plasma 35 [facility] Calcium [Mass/volume] in Serum or Plasma 7.7 mg/dL 8.8-10.2 L [facility] Glomerular filtration rate/1.73 sq M pre dicted among non-blacks [Volume Rate/Area] in Serum or Plasma by Creatinine-based formula (MDRD) 90 mL/min/1.73m2 >60 [facility] Glomerular filtration rate/1.73 sq M pre dicted among blacks [Volume Rate/Area] in Serum or Plasma by Creatinine-based formula (MDRD) >60 [facility] ID Date Data Source [id number] 11/05/2019 01:06:07 AM [facility] Name Value Range Interpretation Code Description Data Grace rce(s) Supporting Document(s) Glucose [Mass/volume] in Capillary blood by Glucometer 158 mg/dL 70- 140 H [facility] ID Date Data Source [id number] 11/04/2019 10:04:28 PM [facility] Value Range Interpretation Code Description Data Grace rce(s) Supporting Document(s) Glucose [Mass/volume] in Capillary blood by Glucometer 156 mg/dL 70- 140 H [facility] ID Date Data Source [id number] 11/04/2019 05:36:32 PM [facility] Value Range Interpretation Code Description Data Grace rce(s) Supporting Document(s) Bicarbonate [Moles/volume] in Serum 27 mmol/L 22-29 [facility] Chloride [Moles/volume] in Serum or Plasma 103 mmol/L 98-107 [facility] Creatinine [Mass/volume] in Serum or Plasma 0.68 mg/dL 0.50-0.90 [facility] Glucose [Mass/volume] in Serum or Plasma 192 mg/dL 70-140 H [facility] Potassium [Moles/volume] in Serum or Plasma 3.2 mmol/L 3.4-5.1 [facility] Sodium [Moles/volume] in Serum or Plasma 139 mmol/L 136-145 [facility] Urea nitrogen [Mass/volume] in Serum or Plasma 24 mg/dL 8-23 H [facility] Anion gap 3 in Serum or Plasma 9 mmol/L 8-15 [facility] Osmolality of Serum or Plasma by calculation 297 mosm/kg 275-300 [facility] Creatinine/Urea nitrogen [Mass Ratio] in Serum or Plasma 35 [facility] Calcium [Mass/volume] in Serum or Plasma 7.4 mg/dL 8.8-10.2 L [facility] Glomerular filtration rate/1.73 sq M pre dicted among non-blacks [Volume Rate/Area] in Serum or Plasma by Creatinine-based formula (MDRD) >6 0 [facility] Glomerular filtration rate/1.73 sq M pre dicted among blacks [Volume Rate/Area] in Serum or Plasma by Creatinine-based formula (MDRD) >60 [facility] ID Date Data Source [id number] 11/04/2019 06:07:36 PM [facility] Name Value Range Interpretation Code Description Data Grace rce(s) Supporting Document(s) Glucose [Mass/volume] in Capillary blood by Glucometer 171 mg/dL 70- 140 H [facility] ID Date Data Source [id number] 11/04/2019 12:50:24 PM [facility] Value Range Interpretation Code Description Data Grace rce(s) Supporting Document(s) Color of Urine [facility] Clarity of Urine [facility] Specific gravity of Urine by Refractometry automated 1.014 1.003 -1.030 [facility] pH of Urine by Automated test strip 5.0 5.0-8.0 [facility] Protein [Mass/volume] in Urine by Automated test strip Neg [facility] Glucose [Mass/volume] in Urine by Automated test strip Neg [facility] Ketones [Mass/volume] in Urine by Automated test strip Neg [facility] Bilirubin.total [Presence] in Urine by Automated test strip Negative [facility] Hemoglobin [Presence] in Urine by Automated test strip Neg [facility] Leukocyte esterase [Presence] in Urine by Automated test strip Negative [facility] Nitrite [Presence] in Urine by Automated test strip Negati [facility] Leukocytes [#/area] in Urine sediment by Automated count 0 /HPF 0 -5 [facility] Erythrocytes [#/area] in Urine sediment by Automated count 0 /HPF 0-3 [facility] Service comment [facility] ID Date Data Source [id number] 11/04/2019 11:43:49 AM [facility] Value Range Interpretation Code Description Data Grace rce(s) Supporting Document(s) Glucose [Mass/volume] in Capillary blood by Glucometer 172 mg/dL 70- 140 [facility] ID Date Data Source [id number] 11/04/2019 08:00:33 AM [facility] Value Range Interpretation Code Description Data Grace rce(s) Supporting Document(s) Glucose [Mass/volume] in Capillary blood by Glucometer 161 mg/dL 70- 140 H [facility] ID Date Data Source [id number] 11/04/2019 06:54:37 AM [facility] Value Range Interpretation Code Description Data Grace rce(s) Supporting Document(s) Leukocytes [#/volume] in Blood by Automated count 15.7 10*3/uL 4-10 H [facility] Erythrocytes [#/volume] in Blood by Automated count 2.46 10*6/uL 4.1- 5.3 [facility] Hemoglobin [Mass/volume] in Blood 7.2 g/dL 11.5-15.5 [facility] Hematocrit [Volume Fraction] of Blood by Automated count 20.8 % 3 6-45 [facility] No significant change since last result called Erythrocyte mean corpuscular volume [Entitic volume] by Auto mated count 84.5 fL 80-96 [facility] Erythrocyte mean corpuscular hemoglobin [Entitic mass] by Automated count 29.0 pg 27-33 [facility] Erythrocyte mean corpuscular hemoglobin concentration [Mass/volume] by Automated count 34.4 g/dL 32.0-[facility] width [Ratio] by Automated count 15.6 % 11.5-14.5 H [facility] Platelets [#/volume] in Blood by Automated count 208 10*3/uL 150-400 [facility] ID Date Data Source [id number] 11/04/2019 03:40:08 AM [facility] Value Range Interpretation Code Description Data Grace rce(s) Supporting Document(s) Glucose [Mass/volume] in Capillary blood by Glucometer 160 mg/dL 70- 140 [facility] ID Date Data Source [id number] 11/04/2019 02:34:11 AM [facility] Value Range Interpretation Code Description Data Grace rce(s) Supporting Document(s) Leukocytes [#/volume] in Blood by Automated count 14.5 10*3/uL 4-10 H [facility] Erythrocytes [#/volume] in Blood by Automated count 2.11 10*6/uL 4.1- 5.3 [facility] Hemoglobin [Mass/volume] in Blood 6.1 g/dL 11.5-15.5 L [facility] Hematocrit [Volume Fraction] of Blood by Automated count 18.0 % 3 6-45 LL [facility] No significant change since last result called Erythrocyte mean corpuscular volume [Entitic volume] by Auto mated count 85.4 fL 80-96 [facility] Erythrocyte mean corpuscular hemoglobin [Entitic mass] by Automated count 29.0 pg 27-33 [facility] Erythrocyte mean corpuscular hemoglobin concentration [Mass/volume] by Automated count 33.9 g/dL 32.0-36.0 [facility] E[facility] distribution width [Ratio] by Automated count 15.3 % 11.5-14.5 H [facility] Platelets [#/volume] in Blood by Automated count 210 10*3/uL 150-400 [facility] Differential cell count method - Blood [facility] Neutrophils/100 leukocytes in Blood by Automated count 82 % [facility] Lymphocytes/100 leukocytes in Blood by Automated count 7 % [facility] Monocytes/100 leukocytes in Blood by Automated count 11 % [facility] Eosinophils/100 leukocytes in Blood by Automated count 0 % [facility] Basophils/100 leukocytes in Blood by Automated count 0 % [facility] Neutrophils [#/volume] in Blood by Automated count 11.97 10*3/uL 1.8- 7.0 H [facility] Lymphocytes [#/volume] in Blood by Automated count 0.96 10*3/uL 1.2-4 .0 L [facility] Monocytes [#/volume] in Blood by Automated count 1.56 10*3/uL 0-0.8 H [facility] Eosinophils [#/volume] in Blood by Automated count 0.02 10*3/uL 0-0.5 [facility] Basophils [#/volume] in Blood by Automated count 0.04 10*3/uL 0-0.2 [facility] Nucleated erythrocytes/100 leukocytes [Ratio] in Blood by Automated count 0 /100{WBCs} 0-0 [facility] ID Date Data Source [id number] 11/04/2019 02:51:[address] [facility] Name Value Range Interpretation Code Description Data Grace rce(s) Supporting Document(s) Bicarbonate [Moles/volume] in Serum 26 mmol/L 22-29 [facility] Chloride [Moles/volume] in Serum or Plasma 103 mmol/L 98-107 [facility] Creatinine [Mass/volume] in Serum or Plasma 0.67 mg/dL 0.50-0.90 [facility] Glucose [Mass/volume] in Serum or Plasma 174 mg/dL 70-140 H [facility] Potassium [Moles/volume] in Serum or Plasma 3.4 mmol/L 3.4-5.1 [facility] Sodium [Moles/volume] in Serum or Plasma 139 mmol/L 136-145 [facility] Urea nitrogen [Mass/volume] in Serum or Plasma 24 mg/dL 8-23 H [facility] Anion gap 3 in Serum or Plasma 10 mmol/L 8-15 [facility] Osmolality of Serum or Plasma by calculation 297 mosm/kg 275-300 [facility] Creatinine/Urea nitrogen [Mass Ratio] in Serum or Plasma 35 [facility] Calcium [Mass/volume] in Serum or Plasma 7.9 mg/dL 8.8-10.2 L [facility] Glomerular filtration rate/1.73 sq M pre dicted among non-blacks [Volume Rate/Area] in Serum or Plasma by Creatinine-based formula (MDRD) >6 0 [facility] Glomerular filtration rate/1.73 sq M pre dicted among blacks [Volume Rate/Area] in Serum or Plasma by Creatinine-based formula (MDRD) >60 [facility] ID Date Data Source [id number] 11/03/2019 11:56:02 PM EDT [facility] Value Range Interpretation Code Description Data Grace rce(s) Supporting Document(s) Glucose [Mass/volume] in Capillary blood by Glucometer 191 mg/dL 70- 140 H [facility] ID Date Data Source [id number] 11/03/2019 08:16:08 PM EDT [facility] Value Range Interpretation Code Description Data Grace rce(s) Supporting Document(s) Glucose [Mass/volume] in Capillary blood by Glucometer 176 mg/dL 70- 140 H [facility] ID Date Data Source [id number] [facility] Code Description Data Grace rce(s) Supporting Document(s) Glucose [Mass/volume] in Capillary blood by Glucometer 195 mg/dL 70- 140 H [facility] ID Date Data Source [id number] 11/03/2019 12:02:14 PM [facility] Value Range Interpretation Code Description Data Grace rce(s) Supporting Document(s) Glucose [Mass/volume] in Capillary blood by Glucometer 217 mg/dL 70- 140 H [facility] ID Date Data Source [id number] 11/03/2019 10:37:27 AM [facility] Value Range Interpretation Code Description Data Grace rce(s) Supporting Document(s) Glucose [Mass/volume] in Capillary blood by Glucometer 180 mg/dL 70- 140 H [facility] ID Date Data Source [id number] 11/03/2019 07:04:53 AM [facility] Value Range Interpretation Code Description Data Grace rce(s) Supporting Document(s) Glucose [Mass/volume] in Capillary blood by Glucometer 162 mg/dL 70- 140 H [facility] ID Date Data Source [id number] 11/03/2019 06:14:19 AM [facility] Value Range Interpretation Code Description Data Grace rce(s) Supporting Document(s) Glucose [Mass/volume] in Capillary blood by Glucometer 170 mg/dL 70- 140 [facility] ID Date Data Source [id number] 11/03/2019 05:06:57 AM [facility] Value Range Interpretation Code Description Data Grace rce(s) Supporting Document(s) Glucose [Mass/volume] in Capillary blood by Glucometer 162 mg/dL 70- 140 [facility] ID Date Data Source [id number] 11/03/2019 04:04:56 AM [facility] Value Range Interpretation Code Description Data Grace rce(s) Supporting Document(s) Glucose [Mass/volume] in Capillary blood by Glucometer 160 mg/dL 70- 140 [facility] ID Date Data Source [id number] 11/03/2019 03:14:16 AM [facility] Value Range Interpretation Code Description Data Grace rce(s) Supporting Document(s) Glucose [Mass/volume] in Capillary blood by Glucometer 153 mg/dL 70- 140 [facility] ID Date Data Source [id number] 11/03/2019 03:18:49 AM [facility] Value Range Interpretation Code Description Data Grace rce(s) Supporting Document(s) Leukocytes [#/volume] in Blood by Automated count 13.3 10*3/uL 4-10 H [facility] Erythrocytes [#/volume] in Blood by Automated count 2.45 10*6/uL 4.1- 5.3 L [facility] Hemoglobin [Mass/volume] in Blood 7.0 g/dL 11.5-15.5 L [facility] Hematocrit [Volume Fraction] of Blood by Automated count 20.9 % 3 6-45 [facility] Called to and read back by DIANELYS Mora [id number] AT [id number] BY 1522 Erythrocyte mean corpuscular volume [Entitic volume] by Auto mated count 85.4 fL 80-96 [facility] Erythrocyte mean corpuscular hemoglobin [Entitic mass] by Automated count 28.3 pg 27-33 [facility] Erythrocyte mean corpuscular hemoglobin concentration [Mass/volume] by Automated count 33.2 g/dL 32.0-36.0 [facility] distribution width [Ratio] by Automated count 15.2 % 11.5-14.5 H [facility] Platelets [#/volume] in Blood by Automated count 211 10*3/uL 150-400 [facility] Differential cell count method - Blood [facility] Neutrophils/100 leukocytes in Blood by Automated count 81 % [facility] Lymphocytes/100 leukocytes in Blood by Automated count 7 % [facility] Monocytes/100 leukocytes in Blood by Automated count 12 % [facility] Eosinophils/100 leukocytes in Blood by Automated count 0 % [facility] Basophils/100 leukocytes in Blood by Automated count 0 % [facility] Neutrophils [#/volume] in Blood by Automated count 10.63 10*3/uL 1.8- 7.0 H [facility] Lymphocytes [#/volume] in Blood by Automated count 0.98 10*3/uL 1.2-4 .0 L [facility] Monocytes [#/volume] in Blood by Automated count 1.64 10*3/uL 0-0.8 H [facility] Eosinophils [#/volume] in Blood by Automated count 0.00 10*3/uL 0-0.5 [facility] Basophils [#/volume] in Blood by Automated count 0.05 10*3/uL 0-0.2 [facility] Nucleated erythrocytes/100 leukocytes [Ratio] in Blood by Automated count 0 /100{WBCs} 0-0 [facility] ID Date Data Source [id number] 11/03/2019 03:47:37 AM [facility] Name Value Range Interpretation Code Description Data Grace rce(s) Supporting Document(s) Bicarbonate [Moles/volume] in Serum 23 mmol/L 22-29 [facility] Chloride [Moles/volume] in Serum or Plasma 107 mmol/L 98-107 [facility] Creatinine [Mass/volume] in Serum or Plasma 0.69 mg/dL 0.50-0.90 [facility] Glucose [Mass/volume] in Serum or Plasma 171 mg/dL 70-140 H [facility] Potassium [Moles/volume] in Serum or Plasma 4.1 mmol/L 3.4-5.1 [facility] Sodium [Moles/volume] in Serum or Plasma 140 mmol/L 136-145 [facility] Urea nitrogen [Mass/volume] in Serum or Plasma 20 mg/dL 8-23 [facility] Anion gap 3 in Serum or Plasma 10 mmol/L 8-15 [facility] Osmolality of Serum or Plasma by calculation 297 mosm/kg 275-300 [facility] Creatinine/Urea nitrogen [Mass Ratio] in Serum or Plasma 28 [facility] Calcium [Mass/volume] in Serum or Plasma 8.0 mg/dL 8.8-10.2 L [facility] Glomerular filtration rate/1.73 sq M pre dicted among non-blacks [Volume Rate/Area] in Serum or Plasma by Creatinine-based formula (MDRD) >6 0 [facility] Glomerular filtration rate/1.73 sq M pre dicted among blacks [Volume Rate/Area] in Serum or Plasma by Creatinine-based formula (MDRD) >60 [facility] ID Date Data Source [id number] 11/03/2019 03:14:16 AM [facility] Value Range Interpretation Code Description Data Grace rce(s) Supporting Document(s) Glucose [Mass/volume] in Capillary blood by Glucometer 160 mg/dL 70- 140 H [facility] ID Date Data Source [id number] 11/03/2019 03:14:16 AM [facility] Value Range Interpretation Code Description Data Grace rce(s) Supporting Document(s) Glucose [Mass/volume] in Capillary blood by Glucometer 150 mg/dL 70- 140 H [facility] ID Date Data Source [id number] 11/03/2019 12:18:17 AM [facility] Name Value Range Interpretation Code Description Data Grace rce(s) Supporting Document(s) Glucose [Mass/volume] in Capillary blood by Glucometer 153 mg/dL 70- 140 H [facility] ID Date Data Source [id number] 11/02/2019 11:14:00 PM [facility] Value Range Interpretation Code Description Data Grace rce(s) Supporting Document(s) Glucose [Mass/volume] in Capillary blood by Glucometer 144 mg/dL 70- 140 [facility] ID Date Data Source [id number] 11/02/2019 10:16:14 PM [facility] Value Range Interpretation Code Description Data Grace rce(s) Supporting Document(s) Glucose [Mass/volume] in Capillary blood by Glucometer 143 mg/dL 70- 140 [facility] ID Date Data Source [id number] 11/02/2019 10:15:31 PM [facility] Value Range Interpretation Code Description Data Grace rce(s) Supporting Document(s) Leukocytes [#/volume] in Blood by Automated count 11.4 10*3/uL 4-10 H [facility] Erythrocytes [#/volume] in Blood by Automated count 2.53 10*6/uL 4.1- 5.3 [facility] Hemoglobin [Mass/volume] in Blood 7.2 g/dL 11.5-15.5 [facility] Hematocrit [Volume Fraction] of Blood by Automated count 21.7 % 3 6-45 L [facility] Erythrocyte mean corpuscular volume [Entitic volume] by Auto mated count 85.7 fL 80-96 [facility] Erythrocyte mean corpuscular hemoglobin [Entitic mass] by Automated count 28.5 pg 27-33 [facility] Erythrocyte mean corpuscular hemoglobin concentration [Mass/volume] by Automated count 33.3 g/dL 32.0-36.0 [facility] distribution width [Ratio] by Automated count 15.1 % 11.5-14.5 [facility] Platelets [#/volume] in Blood by Automated count 211 10*3/uL 150-400 [facility] Differential cell count method - Blood [facility] Neutrophils/100 leukocytes in Blood by Automated count 78 % [facility] Lymphocytes/100 leukocytes in Blood by Automated count 10 % [facility] Monocytes/100 leukocytes in Blood by Automated count 12 % [facility] Eosinophils/100 leukocytes in Blood by Automated count 0 % [facility] Basophils/100 leukocytes in Blood by Automated count 0 % [facility] Neutrophils [#/volume] in Blood by Automated count 8.90 10*3/uL 1.8-7 .0 H [facility] Lymphocytes [#/volume] in Blood by Automated count 1.10 10*3/uL 1.2-4 .0 L [facility] Monocytes [#/volume] in Blood by Automated count 1.33 10*3/uL 0-0.8 H [facility] Eosinophils [#/volume] in Blood by Automated count 0.00 10*3/uL 0-0.5 [facility] Basophils [#/volume] in Blood by Automated count 0.04 10*3/uL 0-0.2 [facility] Nucleated erythrocytes/100 leukocytes [Ratio] in Blood by Automated count 0 /100{WBCs} 0-0 [facility] ID Date Data Source [id number] 11/02/2019 10:16:14 PM [facility] Name Value Range Interpretation Code Description Data Grace rce(s) Supporting Document(s) Glucose [Mass/volume] in Capillary blood by Glucometer 123 mg/dL 70- 140 [facility] ID Date Data Source [id number] 11/02/2019 08:22:20 PM [facility] Name Value Range Interpretation Code Description Data Grace rce(s) Supporting Document(s) History and Physical [facility] [id number] [facility] [file] ICAgICAgICAgICAgICAgICAgICAgICAgICAgICAgIC AgICAgICAgICAgICAgICAgICAgICAgICAgICAgICAgICAgDQogICAgICAgICAgICAgICAgICAgICAgIC AgICAgICAgICAgICAgICAgICAgICAgICAgICAgICAgICAgICAgICAgICAgICAgICAgICAgICAgICAgIC AgICAgICAgICAgICAgICAgDQogICAgICAgICAgICAg ICAgICAgICAgICAgICAgICAgICAgICAgICAgICAgICAgICAgICAgICAgICAgICAgICAgICAgICAgICAg ICAgICAgICAgICAgICAgICAgICAgICAgICAgDQogICAgICAgICAgICAgICAgICAgICAgICAgICAgICAg ICAgICAgICAgICAgICAgICAgICAgICAgICAgICAgIC AgICAgICAgICAgICAgICAgICAgICAgICAgICAgICAgICAgICAgDQogICAgICAgICAgICAgICAgICAgIC AgICAgICAgICAgICAgICAgICAgICAgICAgICAgICAgICAgICAgICAgICAgICAgICAgICAgICAgICAgIC AgICAgICAgICAgICAgICAgICAgDQogICAgICAgICAg ICAgICAgICAgICAgICAgICAgICAgICAgICAgICAgICAgICAgICAgICAgICAgICAgICAgICAgICAgICAg ICAgICAgICAgICAgICAgICAgICAgICAgICAgICAgDQogICAgICAgICAgICAgICAgICAgICAgICAgICAg ICAgICAgICAgICAgICAgICAgICAgICAgICAgICAgIC AgICAgICAgICAgICAgICAgICAgICAgICAgICAgICAgICAgICAgICAgDQogICAgICAgICAgICAgICAgIC AgICAgICAgICAgICAgICAgICAgICAgICAgICAgICAgICAgICAgICAgICAgICAgICAgICAgICAgICAgIC AgICAgICAgICAgICAgICAgICAgICAgDQogICAgICAg ICAgICAgICAgICAgICAgICAgICAgICAgICAgICAgICAgICAgICAgICAgICAgICAgICAgICAgICAgICAg ICAgICAgICAgICAgICAgICAgICAgICAgICAgICAgICAgDQogICAgICAgICAgICAgICAgICAgICAgICAg ICAgICAgICAgICAgICAgICAgICAgICAgICAgICAgIC OnWCKsSAQhIYRsRFPkAGXaXXUiJLHuKQRyLWEqJCJzZJWyODGgKMMnMBWkDWl3A2lnTXOwFOXdEX1mVD d3Jz8+ZMkJBbJlFHC4vhZgiA0BTJ1dq2YrMHhgYJZyc7GdBZp4VM2VZKAoKLisXA4AHSeqik0OHVBdGC MlrOLWi3ozJqHqWTQ8SSUdJbhtMW9IJFFuF2akmbNt ILJkLJJZAMhoIIKZXFbpOFRQQEPqWVNuEhMqBpJmYFEdKT8XHYIgX397zfSbIP5VFr9PZiDpCE3qwi9E TeZnCXZoOnkFBny3XRudSL1TuOIuuAKuPfHtYJIYGyKuU1lty2CaPoSvWWLWONppDR9An2WtqYLfDPx+ Gk4RVL1fu2DqNShbLuOxMX3aex0HZQrAFwVlY4ZyoT tnSDbgLECcoTURoIxfWSUGE2E5ljZaYAKENOD7TAIsSq9iSDWfPFX9GaJ6ZCTWCP9ZSMYjUJImvVHlVR MlESTOBA9NWZcbJJQ2UBZfcxRdqQYdEVjkBS7NKFTlobAhCfUqBSXTSNy+Pt8GCJ0pj4XlUCtuBDWxXC 9jdx9KFIkLOiQeQ1I5xQKbT0T5YVgdIe3REGHuVJCt VnFoQNHLSSudYT5THS4vriC0WR2LvYOhHXOoRNYofXExVFx8J33msZNqPImkLF9TOPC+Alise+Os5EQTRq OGEqLLLdYjUlMXVZLyLiS4LbE9BMw5ZsP8NmNP49zRnbwcVtZGqtLE7OWS7nXHFlAYDEUN6HvSRvsP3g qeMiIcLwCOOXJzZnA34azTKtPDCwZFJmSQIqAa3PQI MfJ4QfpqIdtOpawkElGYGtQTEEHX3CYBtvznOvtZShhKwaZB62jUniRB7XGs4EMeVvYB4asa9DrBGuNx 7GPBJnMD8GTAAjIEPzCNUoZWE4JKOzFkQvOMdhJOYwVEHuLYU4EAPhHRGbKZ7BRzEtDJAdVER3VvjuTR RmGVLsvm9EDIWuYBQ3GuDcJTTbINWrTMJbOEvdCABv OCXgHJP1XUFfRZHpVL0QGhRkFKFqTXBsLhCjADGqGJDlda8IRMHnCSHjAmW0ZFIfSQChWPUxSGoqFBLv ZAN0UFwkHWNsSGNaDT9DKoDeOOHwAPU8BRRlEVJnBBXxzp1QXSByXFYgYbi5DtBxTWBpGTOjZNuzMXAv LPG9KFk2NKTcTSYmVV8MDtDcDAWfFRK8IMCxNCXwOG Drvo3XPOPtMMIxOXy4GiPzZLWeOXLkPJbiTXGyWCLbKjp7BNFjRNJhQH5KStGbVJNsETClDZDuJULyGZ Zddz6QVTVoUASwRsi0BJFzEBNuNSAqQLiuCGGfHZS0AJD2APWrWNWpEX2CVhLrDZRwSBHpMUHaZUYjWS Pxzn0QDSZlHCHjTIBlWTMjICCaXYUjDOlxKJObNNK7 NCFcQXMhROCaJJ4PZyAtXCHoBYY7ZCQrSZPoEGZczi3CPYBfOALwWuO6JARkVBYrXZOaLFcsANUkIWB8 UWT4KIBuWNDwOL9PQiIfXTUmOLlaEvTvFXLiZLLgui7YPMNqHKSmUWP5ApXpQVDiPNOyBEiuFXGtTHF4 Yot3GOGcXQKgXM7UZpCaEGItHmGsUJOrKNNvTBAvxw 4FEGErLYNjYDShYCUbCHHoAOFjSIeeGJVqWQF2NLAaEVRsOUGiOB6IQdZaSJLdTzZ2EeTjFMKoOUTsuq 0JFPDmVBI4IRUgLxFqFYMaCFMpBVfkLVZaZMG7ISN3XWZmSTEgVA7EFlBgUSHeRUfcSiesGGUrFMDkpn 5MJDTmECU3YdR5BZOjMHZgIGVdBLuwKJPuMED2QLX6 PLXdMUFtVK9XZrBlVGpdWZSHHem1UDtmL4q2RSPcFH4EO5Zum4DrIxJmXNLGTRjoCR6unaLgTMNaDi9R A9nNIttnIZZeSytcOAH1MPGqKxdeXqXsXkdzUzMhKtF2WBl9Pv9yNZZnDSZvQCAkOQS8LeTdOlGeX6R4 ACEoLIGjJbQ9VQEdMoBvEF0GNk4JEgP6OPE0oTEvCm0SYYq4AtqQYgNvVG8WAXc= ID Date Data Source [id number] 11/02/2019 08:24:26 PM EDT [facility] Name Value Range Interpretation Code Description Data Graec rce(s) Supporting Document(s) Glucose [Mass/volume] in Capillary blood by Glucometer 139 mg/dL 70- 140 [facility] ID Date Data Source [id number] 11/02/2019 07:06:26 PM [facility] Name Value Range Interpretation Code Description Data Grace rce(s) Supporting Document(s) Glucose [Mass/volume] in Capillary blood by Glucometer 145 mg/dL 70- 140 H [facility] ID Date Data Source [id number] 11/02/2019 05:49:36 PM [facility] XR CHEST FRONTAL ONLY [id number] RESULTI nterpreted by:Sheela Ma MDINDICATION: Intubated, postop [...] rce(s) Supporting Document(s) ID Date Data Source [id number] [facility] Name Value Range Interpretation Code Description Data Grace rce(s) Supporting Document(s) pH of Arterial blood 7.30 7.38-7.44 [facility] Carbon dioxide [Partial pressure] in Arterial blood 48 mmHg 35-40 H [facility] Oxygen [Partial pressure] in Arterial blood 146 mmHg 95-100 H [facility] Base excess standard in Arterial blood by calculation [facility] Oxygen saturation Calculated from oxygen partial press ure in Arterial blood 99 % 94-100 [facility] Bicarbonate [Moles/volume] in Arterial blood 25 mmol/L [facility] Sodium [Moles/volume] in Blood 142 mmol/L 136-145 [facility] Potassium [Moles/volume] in Blood 3.8 mmol/L 3.4-5.1 [facility] Calcium.ionized [Moles/volume] in Blood 1.17 mmol/L 1.13-1.32 [facility] Glucose [Mass/volume] in Blood 201 mg/dL 70-140 [facility] Hematocrit [Volume Fraction] of Blood 23 % 36-45 [facility] Hemoglobin [Mass/volume] in Blood by calculation 7.8 g/dL 11.5-15.5 [facility] ID Date Data Source [id number] 11/04/2019 08:04:38 AM [facility] Name Value Range Interpretation Code Description Data Grace rce(s) Supporting Document(s) Blood bank comment [facility] ID Date Data Source [id number] 11/06/2019 06:59:40 AM [facility] 11/05/2019,0000Verbal order from OR abebe hesia Name Value Range Interpretation Code Description Data Grace rce(s) Supporting Document(s) ABO and Rh group [Type] in Blood [facility] Performed at [facility] [place] ID Date Data Source [id number] 11/03/2019 08:01:58 AM [facility] Name Value Range Interpretation Code Description Data Grace rce(s) Supporting Document(s) ABO and Rh group [Type] in Blood [facility] Blood group antibody screen [Presence] in Serum or Plasma [facility] Blood bank comment [facility] ID Date Data Source [id number] 09/27/2019 01:43:00 PM [facility]T [facility] [...] rce(s) Supporting Document(s) ID Date Data Source [id number] 09/27/2019 01:42:00 PM EDT [facility] [...] rce(s) Supporting Document(s) ID Date Data Source [id number] 09/27/2019 01:27:00 PM EDT [facility] [...] rce(s) Supporting Document(s) ID Date Data Source [id number] 09/27/2019 02:10:00 PM EDT [facility] Name Value Range Interpretation Code Description Data Grace rce(s) Supporting Document(s) FREE T4 0.69 ng/dL 0.76-1.46 L [facility] ID Date Data Source [id number] 09/27/2019 02:10:00 PM EDT [facility] Name Value Range Interpretation Code Description Data Grace rce(s) Supporting Document(s) TSH 2.29 uIU/mL 0.36-3.74 [facility] ID Date Data Source [id number] 09/27/2019 01:29:00 PM EDT [facility] Name Value Range Interpretation Code Description Data Grace rce(s) Supporting Document(s) ETHYL ALCOHOL 0.00 % 0-0.01 [facility] ID Date Data Source [id number] 09/27/2019 01:29:00 PM EDT [facility] Name Value Range Interpretation Code Description Data Grace rce(s) Supporting Document(s) GLUCOSE 149 mg/dL 74-106 H [facility] BLOOD UREA NITROGEN 19 mg/dL 7-18 H [facility] CREATININE 0.8 mg/dL 0.6-1.0 [facility] SODIUM 143 mmol/L 136-145 [facility] POTASSIUM 4.1 mmol/L 3.5-5.1 [facility] CHLORIDE 103 mmol/L 98-107 [facility] CO2 33 mmol/L 21-32 H [facility] CALCIUM 8.9 mg/dL 8.5-10.1 [facility] ANION GAP 7.0 mmol/L 5-12 [facility] GLOMERULAR FILTRATION RATE 72 mL/min [facility] GFR IS CALCULATED IN mL/min/1.73m2 RAOUL L FUNCTION: >90MILDLY DECREASED: 60-89MILDY TO MODERATELY DECREASED: 45-59 MODERATELY TO SEVERELY DECREASED: 30-44SEVERELY DECREASED: 15-29RENAL FAILURE: <15 AST 14 U/L 15-37 L [facility] ALT 25 U/L 12-78 [facility] ALKALINE PHOSPHATASE 99 U/L 46-116 [facility] pital TOTAL BILIRUBIN 0.3 mg/dL 0.2-1.0 [facility] TOTAL PROTEIN 7.8 g/dl 6.4-8.2 [facility] ALBUMIN 4.1 gm/dL 3.4-5.0 [facility] ID Date Data Source [id number] 09/27/2019 01:29:00 PM EDT [facility] Name Value Range Interpretation Code Description Data [facility] rce(s) Supporting Document(s) MAGNESIUM 1.9 mg/dL 1.8-2.4 [facility] ID Date Data Source [id number] 09/27/2019 01:19:00 PM EDT [facility] Name Value Range Interpretation Code Description Data [facility] rce(s) Supporting Document(s) WHITE BLOOD COUNT 9.8 K/mm3 4.0-10.0 [facility] RED BLOOD COUNT 4.91 M/mm3 4.00-5.50 [facility] HEMOGLOBIN 13.6 gm/dL 12.0-16.0 [facility] HEMATOCRIT 42.5 % 36.0-48.8 [facility] MEAN CELL VOLUME 86.6 fl 80-96 [facility] MEAN CORPUSCULAR HEMOGLOBIN 27.7 pg 27.0-31.0 [facility] MEAN CORPUSCULAR HGB CONC 32.0 g/dl 32.0-36.0 [facility] RED CELL DISTRIBUTION WIDTH 14.1 % 10.0-14.5 [facility] PLATELET COUNT 380 K/mm3 172-450 [facility] MEAN PLATELET VOLUME 10.0 fl 9.0-13.0 [facility] pital GRAN % 70.8 % 50-80.0 [facility] IG% 0.2 % 0.0-0.2 [facility] LYMPH % 19.0 % 25.0-50.0 L [facility] MONO % 7.6 % 2.0-10.0 [facility] EOS % 1.9 % 0-5.0 [facility] BASO % 0.5 % 0.0-2.0 [facility] GRAN # 7.0 K/mm3 2.0-8.00 [facility] IG# 0.0 K/mm3 0.0-0.2 [facility] LYMPH # 1.9 K/mm3 1.0-5.0 [facility] MONO # 0.8 K/mm3 0.10-1.20 [facility] EOS # 0.2 K/mm3 0.0-0.5 [facility] BASO # 0.1 K/mm3 0.0-0.2 [facility] ID Date Data Source FREE T4 09/27/2019 12:00:00 AM EDT eCW1 ([facility]) Name Value Range Interpretation Code Description Data Grace rce(s) Supporting Document(s) 0.69 0.76-1.46 FREE T4 eCW1 ([facility]) ID Date Data Source CBC [id number]/DIFF 09/27/2019 12:00:00 AM EDT eCW1 ([facility]) Name Value Range Interpretation Code Description Data Grace rce(s) Supporting Document(s) 9.8 4.0-10.0 WHITE BLOOD COUNT eCW1 ([facility]) 4.91 4.00-5.50 RED BLOOD COUNT eCW1 ([facility]) 13.6 12.0-16.0 HEMOGLOBIN eCW1 ([facility]) 32.0 32.0-36.0 MEAN CORPUSCULAR HGB CONC eCW1 ([facility]) 27.7 27.0-31.0 MEAN CORPUSCULAR HEMOGLOB IN eCW1 ([facility]) 86.6 80-96 MEAN CELL VOLUME eCW1 ([facility]) 42.5 36.0-48.8 HEMATOCRIT eCW1 ([facility]) 10.0 9.0-13.0 MEAN PLATELET VOLUME eCW1 ([facility]) 380 172-450 PLATELET COUNT eCW1 ([facility]) 70.8 50-80.0 GRAN % eCW1 ([facility]) 14.1 10.0-14.5 RED CELL DISTRIBUTION WID TH eCW1 ([facility]) 7.6 2.0-10.0 MONO % eCW1 ([facility]) 0.5 0.0-2.0 BASO % eCW1 ([facility]) 1.9 0-5.0 EOS % eCW1 ([facility]) 19.0 25.0-50.0 LYMPH % eCW1 ([facility]) 1.9 1.0-5.0 LYMPH # eCW1 ([facility]) 0.2 0.0-0.5 EOS # eCW1 ([facility]) 0.8 0.10-1.20 MONO # eCW1 ([facility]) 7.0 2.0-8.00 GRAN # eCW1 ([facility]) 0.1 0.0-0.2 BASO # eCW1 ([facility]) ID Date Data Source [id number] 08/17/2019 06:05:00 AM EDT [facility] Name Value Range Interpretation Code Description Data Grace rce(s) Supporting Document(s) URINE CULTURE, ROUTINE Final report . [facility] UC RESULT1 No growth . [facility] Performed at: RN - [facility] [address] [id number] Director: Aislinn Hernandez MD, Phone: [phone] ID Date Data Source [id number] 08/17/2019 06:05:00 AM EDT [facility] Name Value Range Interpretation Code Description Data Grace rce(s) Supporting Document(s) Urine Culture, Routine Final report [facility] ID Date Data Source [id number] 08/17/2019 06:05:00 AM EDT [facility] Name Value Range Interpretation Code Description Data Grace rce(s) Supporting Document(s) Result 1 No growth [facility] ID Date Data Source [id number] 07/21/2019 12:09:00 PM EST [facility] Name Value Range Interpretation Code Description Data Grace rce(s) Supporting Document(s) CLAUDETTE DIRECT Negative Negative [facility] Performed at: RN - [facility] [id number] [place] [id number] Director: Aislinn Hernandez MD, Phone: [phone] ID Date Data Source [id number] 07/21/2019 12:05:00 PM EST [facility] Name Value Range Interpretation Code Description Data Grace rce(s) Supporting Document(s) CLAUDETTE Direct Negative Negative [facility] ID Date Data Source [id number] 07/20/2019 02:23:00 PM EST [facility] Name Value Range Interpretation Code Description Data Grace rce(s) Supporting Document(s) ERYTHROCYTE SEDIMENTATION RATE 16 mm/hr 0-30 [facility] ID Date Data Source [id number] 07/20/2019 11:46:00 AM [facility] Name Value Range Interpretation Code Description Data Grace rce(s) Supporting Document(s) GLUCOSE 135 mg/dL 74-106 H [facility] BLOOD UREA NITROGEN 22 mg/dL 7-18 H [facility] ital CREATININE 0.7 mg/dL 0.6-1.0 [facility] SODIUM 143 mmol/L 136-145 [facility] POTASSIUM 4.4 mmol/L 3.5-5.1 [facility] CHLORIDE 104 mmol/L 98-107 [facility] CO2 29 mmol/L 21-32 [facility] CALCIUM 8.9 mg/dL 8.5-10.1 [facility] ANION GAP 10.0 mmol/L 5-12 [facility] GLOMERULAR FILTRATION RATE 85 mL/min [facility] GFR IS CALCULATED IN mL/min/1.73m2 RAOUL L FUNCTION: >90MILDLY DECREASED: 60-89MILDY TO MODERATELY DECREASED: 45-59 MODERATELY TO SEVERELY DECREASED: 30-44SEVERELY DECREASED: 15-29RENAL FAILURE: <15 ID Date Data Source [id number] 07/20/2019 11:46:00 AM [facility] l Name Value Range Interpretation Code Description Data Grace rce(s) Supporting Document(s) CHOLESTEROL 191 mg/dL 0-200 [facility] TRIGLYCERIDES 182 mg/dL 0-150 H [facility] LDL CHOLESTEROL 107 mg/dL 0-100 H [facility] HDL CHOLESTEROL 48 mg/dL 40-60 [facility] CHOL/HDL RATIO 4.0 0.0-5.0 [facility] ID Date Data Source [id number] 07/20/2019 01:51:00 PM [facility] Name Value Range Interpretation Code Description Data Grace rce(s) Supporting Document(s) C REACTIVE PROTEIN 5.6 mg/L 0.0-3.0 H [facility] freddie ID Date Data Source [id number] 07/20/2019 01:26:00 PM [facility] Name Value Range Interpretation Code Description Data Grace rce(s) Supporting Document(s) RHEUMATOID FACTOR SCREEN NEGATIVE NEGATIVE [facility] ID Date Data Source [id number] 07/20/2019 11:45:00 AM [facility] Name Value Range Interpretation Code Description Data Grace rce(s) Supporting Document(s) FREE T4 0.48 ng/dL 0.76-1.46 L [facility] ID Date Data Source [id number] 07/20/2019 11:45:00 AM EST [facility] Name Value Range Interpretation Code Description Data Grace rce(s) Supporting Document(s) TSH 21.48 uIU/mL 0.36-3.74 H [facility] ID Date Data Source [id number] 07/20/2019 11:08:00 AM EST [facility] Name Value Range Interpretation Code Description Data Grace rce(s) Supporting Document(s) ESTIMATED AVERAGE GLUCOSE 174.3 mg/dL [facility] ID Date Data Source [id number] 07/20/2019 11:08:00 AM EST [facility] Name Value Range Interpretation Code Description Data Grace rce(s) Supporting Document(s) HGBA1C 7.7 % 4.5-6.2 H [facility] ID Date Data Source CLAUDETTE W/REFLEX IF POSITIVE 07/20/2019 12:00:00 AM EST eCW1 ([facility]) Name Value Range Interpretation Code Description Data Grace rce(s) Supporting Document(s) Negative Negative CLAUDETTE DIRECT eCW1 ([facility]) ID Date Data Source RHEUMATOID FACTOR SCREEN 07/20/2019 12:00:00 AM EST eCW1 ([facility]) Name Value Range Interpretation Code Description Data Grace rce(s) Supporting Document(s) NEGATIVE NEGATIVE RHEUMATOID FACTOR SCREEN eCW1 ([facility]) ID Date Data Source BASIC METABOLIC PANEL 07/20/2019 12:00:00 AM EST eCW1 ([facility]) Name Value Range Interpretation Code Description Data Grace rce(s) Supporting Document(s) 135 74-106 GLUCOSE eCW1 ([facility]) 22 7-18 BLOOD UREA NITROGEN eCW1 ([facility]) 4.4 3.5-5.1 POTASSIUM eCW1 ([facility]) 143 136-145 SODIUM eCW1 ([facility]) 104 98-107 CHLORIDE eCW1 ([facility]) 0.7 0.6-1.0 CREATININE eCW1 ([facility]) 8.9 8.5-10.1 CALCIUM eCW1 ([facility]) 10.0 5-12 ANION GAP eCW1 ([facility]) 29 21-32 CO2 eCW1 ([facility]) 85 GLOMERULAR FILTRATION RAT E eCW1 ([facility]) ID Date Data Source [id number] 05/23/2019 10:53:00 AM [facility] Patient: HANNA GARVIN Repo rt - [facility].VisitID: [id number] [place] [address] [phone], FRegistration Date/Time: 05/21/2019 00:03 Weight:117 kg (S). [...] (finding) completed Current non-drinker of alcohol (finding) [facility] Tobacco use and exposure 07/09/2020 12:00:00 AM EST Never used co mpleted Never used [facility] Smoking 07/09/2020 12:00:00 AM EST Never smoker completed Never s nhker [facility] Smoking 07/05/2020 12:00:00 AM EST Never Smoker completed Never S moker eCW1 ([facility]) Smoking 06/21/2020 12:00:00 AM EST Never Smoker completed Never S moker eCW1 ([facility]) Smoking 06/21/2020 12:00:00 AM EST Never Smoker completed Never S moker eCW1 ([facility]) Smoking 06/21/2020 12:00:00 AM EST Never Smoker completed Never S moker eCW1 ([facility]) Smoking 06/19/2020 12:00:00 AM EST Never Smoker completed Never S moker eCW1 ([facility]) Smoking 06/19/2020 12:00:00 AM EST Never Smoker completed Never S moker eCW1 ([facility]) Smoking 06/19/2020 12:00:00 AM EST Never Smoker completed Never S moker eCW1 ([facility]) Smoking 06/19/2020 12:00:00 AM EST Never Smoker completed Never S moker eCW1 ([facility]) Smoking 06/19/2020 12:00:00 AM EST Never Smoker completed Never S moker eCW1 ([facility]) Smoking 06/19/2020 12:00:00 AM EST Never Smoker completed Never S moker eCW1 ([facility]) Smoking 06/19/2020 12:00:00 AM EST Never Smoker completed Never S moker eCW1 ([facility]) Smoking 06/19/2020 12:00:00 AM EST Never Smoker completed Never S moker eCW1 ([facility]) Smoking 06/19/2020 12:00:00 AM EST Never Smoker completed Never S moker eCW1 ([facility]) Smoking 06/19/2020 12:00:00 AM EST Never Smoker completed Never S moker eCW1 ([facility]) Smoking 06/19/2020 12:00:00 AM EST Never Smoker completed Never S moker eCW1 ([facility]) Smoking 06/19/2020 12:00:00 AM EST Never Smoker completed Never S moker eCW1 ([facility]) Smoking 06/18/2020 12:00:00 AM EST Never Smoker completed Never S moker eCW1 ([facility]) Smoking 06/05/2020 12:00:00 AM EST Never Smoker completed Never S moker eCW1 ([facility]) Smoking 06/05/2020 12:00:00 AM EST Never Smoker completed Never S moker eCW1 ([facility]) Smoking 06/05/2020 12:00:00 AM EST Never Smoker completed Never S moker eCW1 ([facility]) Smoking 06/05/2020 12:00:00 AM EST Never Smoker completed Never S moker eCW1 ([facility]) Smoking 06/05/2020 12:00:00 AM EST Never Smoker completed Never S moker eCW1 ([facility]) Smoking 05/10/2020 12:00:00 AM EST Never Smoker completed Never S moker eCW1 ([facility]) Smoking 05/10/2020 12:00:00 AM EST Never Smoker completed Never S moker eCW1 ([facility]) Smoking 05/10/2020 12:00:00 AM EST Never Smoker completed Never S moker eCW1 ([facility]) Smoking 05/10/2020 12:00:00 AM EST Never Smoker completed Never S moker eCW1 ([facility]) Smoking 05/10/2020 12:00:00 AM EST Never Smoker completed Never S moker eCW1 ([facility]) Smoking 05/09/2020 12:00:00 AM EST Never Smoker completed Never S moker eCW1 ([facility]) Smoking 05/09/2020 12:00:00 AM EST Never Smoker completed Never S moker eCW1 ([facility]) Smoking 05/09/2020 12:00:00 AM EST Never Smoker completed Never S moker eCW1 ([facility]) Smoking 05/09/2020 12:00:00 AM EST Never Smoker completed Never S moker eCW1 ([facility]) Smoking 05/09/2020 12:00:00 AM EST Never Smoker completed Never S moker eCW1 ([facility]) Smoking 05/09/2020 12:00:00 AM EST Never Smoker completed Never S moker eCW1 ([facility]) Smoking 05/09/2020 12:00:00 AM EST Never Smoker completed Never S moker eCW1 ([facility]) Smoking 05/08/2020 12:00:00 AM EST Never Smoker completed Never S moker eCW1 ([facility]) Smoking 05/03/2020 12:00:00 AM EST Never Smoker completed Never S moker eCW1 ([facility]) Smoking 04/05/2020 12:00:00 AM EST Never Smoker completed Never S moker eCW1 ([facility]) Smoking 03/06/2020 12:00:00 AM EDT Never Smoker completed Never S moker eCW1 ([facility]) Smoking 03/06/2020 12:00:00 AM EDT Never Smoker completed Never S moker eCW1 ([facility]) Smoking 03/06/2020 12:00:00 AM EDT Never Smoker completed Never S moker eCW1 ([facility]) Smoking 03/06/2020 12:00:00 AM EDT Never Smoker completed Never S moker eCW1 ([facility]) Smoking 03/06/2020 12:00:00 AM EDT Never Smoker completed Never S moker eCW1 ([facility]) Smoking 01/02/2020 12:00:00 AM EDT Unknown if ever smoked comp leted Unknown if ever smoked [facility] Smoking 12/03/2019 12:00:00 AM EDT Unknown if ever smoked comp leted Unknown if ever smoked [facility] Smoking 10/20/2019 12:00:00 AM EDT Never Smoker completed Never S moker eCW1 ([facility]) Smoking 10/20/2019 12:00:00 AM EDT Never Smoker completed Never S moker eCW1 ([facility]) Smoking 10/20/2019 12:00:00 AM EDT Never Smoker completed Never S moker eCW1 ([facility]) Smoking 10/20/2019 12:00:00 AM EDT Never Smoker completed Never S moker eCW1 ([facility]) Smoking 10/20/2019 12:00:00 AM EDT Never Smoker completed Never S moker eCW1 ([facility]) Smoking 10/04/2019 12:00:00 AM EDT Never Smoker completed Never S moker eCW1 ([facility]) Vital Signs ID Date Data Source UNK Name Value Range Interpretation Code Description Data Source(s) Diastolic blood pressure 56 mm[Hg] 56 mm[Hg] eCW1 ([facility]) Systolic blood pressure 122 mm[Hg] 122 mm[Hg] e CW1 ([facility]) Body temperature 98 [degF] 98 [degF] eCW1 ([facility]) Respiratory rate 20 /min 20 /min eCW1 ([facility]) Heart rate 92 /min 92 /min eCW1 ([facility]) Body mass index (BMI) [Ratio] 40.12 kg/m2 40.12 kg/m2 W1 ([facility]) Body height 67.5 [in_i] 67.5 [in_i] eCW1 ([facility]) Body weight kg eCW1 ([facility]) Body weight 260 [lb_av] 260 [lb_av] eCW1 ([facility]) Diastolic blood pressure 44 mm[Hg] 44 mm[Hg] eCW1 ([facility]) Systolic blood pressure 91 mm[Hg] 91 mm[Hg] e CW1 ([facility]) Body temperature 96.8 [degF] 96.8 [degF] eCW1 ( [facility]) Respiratory rate 20 /min 20 /min eCW1 ([facility]) Heart rate 64 /min 64 /min eCW1 ([facility]) Body mass index (BMI) [Ratio] 40.12 kg/m2 40.12 kg/m2 eCW1 ([facility]) Body height 67.5 [in_i] 67.5 [in_i] eCW1 ([facility]) Body weight kg eCW1 ([facility]) Body weight 260 [lb_av] 260 [lb_av] eCW1 ([facility]) Body surface area Derived from formula 2.28 m2 2.28 m2 MEDENT ([facility]) Body weight 117.936 kg 117.936 kg [facility] ([facility]) [place] body weight 140 [lb_av] 140 [lb_av] MEDEN T ([facility]) Body mass index (BMI) [Ratio] 39.5 kg/m2 39.5 k g/m2 [facility] Body weight 260.00 [lb_av] 260.00 [lb_av] MEDEN T ([facility]) Stated Body height 68 [in_i] 68 [in_i] MEDENT ([facility]) 5'8" Diastolic blood pressure 64 mm[Hg] 64 mm[Hg] MEDENT ([facility]) Systolic blood pressure 104 mm[Hg] 104 mm[Hg] M EDENT ([facility], ) Oxygen saturation in Arterial blood by Pulse oximetry 96 % 96 % eCW1 ([facility]) Respiratory rate 18 /min 18 /min eCW1 ([facility]) Heart rate 86 /min 86 /min eCW1 ([facility]) Body temperature 98.2 [degF] 98.2 [degF] eCW1 ( [facility]) Body height 67.5 [in_i] 67.5 [in_i] eCW1 ([facility]) Diastolic blood pressure 54 mm[Hg] 54 mm[Hg] eCW1 ([facility]) Systolic blood pressure 111 mm[Hg] 111 mm[Hg] e CW1 ([facility]) Body temperature 96.4 [degF] 96.4 [degF] eCW1 ( [facility]) Respiratory rate 20 /min 20 /min eCW1 ([facility]) Heart rate 72 /min 72 /min eCW1 ([facility]) Body mass index (BMI) [Ratio] 40.12 kg/m2 40.12 kg/m2 eCW1 ([facility]) Body height 67.5 [in_i] 67.5 [in_i] eCW1 ([facility]) Body weight kg eCW1 ([facility]) Body weight 260 [lb_av] 260 [lb_av] eCW1 ([facility]) Oxygen saturation in Arterial blood by Pulse oximetry 97 % 97 % eCW1 ([facility]) Respiratory rate 18 /min 18 /min eCW1 ([facility]) Heart rate 87 /min 87 /min eCW1 ([facility]) Body temperature 98.4 [degF] 98.4 [degF] eCW1 ( [facility]) Body height 67.5 [in_i] 67.5 [in_i] eCW1 ([facility]) Diastolic blood pressure 58 mm[Hg] 58 mm[Hg] eCW1 ([facility]) Systolic blood pressure 109 mm[Hg] 109 mm[Hg] e CW1 ([facility]) Body temperature 96.1 [degF] 96.1 [degF] eCW1 ( [facility]) Respiratory rate 18 /min 18 /min eCW1 ([facility]) Heart rate 72 /min 72 /min eCW1 ([facility]) Body mass index (BMI) [Ratio] 40.12 kg/m2 40.12 kg/m2 eCW1 ([facility]) Body height 67.5 [in_i] 67.5 [in_i] eCW1 ([facility]) Body weight kg eCW1 ([facility]) Body weight 260 [lb_av] 260 [lb_av] eCW1 ([facility]) Diastolic blood pressure 86 mm[Hg] 86 mm[Hg] eCW1 ([facility]) Systolic blood pressure 172 mm[Hg] 172 mm[Hg] e CW1 ([facility]) Body temperature 97.0 [degF] 97.0 [degF] eCW1 ( [facility]) Respiratory rate 18 /min 18 /min eCW1 ([facility]) Heart rate 72 /min 72 /min eCW1 ([facility]) Body mass index (BMI) [Ratio] 40.73 kg/m2 40.73 kg/m2 eCW1 ([facility]) Body height 67.5 [in_us] 67.5 [in_us] eCW1 ([facility]) Body weight Measured 264 [lb_av] 264 [lb_av] eC W1 ([facility]) Deprecated Oxygen saturation in Capillary blood by Oximetry 97 % 97 % eCW1 ([facility]) Respiratory rate 18 /min 18 /min eCW1 ([facility]) Heart rate 94 /min 94 /min eCW1 ([facility]) Body temperature 98.6 [degF] 98.6 [degF] eCW1 ( [facility]) Body mass index (BMI) [Ratio] 39.75 kg/m2 39.75 kg/m2 eCW1 ([facility]) Body weight Measured 257.6 [lb_av] 257.6 [lb_av ] eCW1 ([facility]) Body height 67.5 [in_us] 67.5 [in_us] eCW1 ([facility]) Diastolic blood pressure 89 mm[Hg] 89 mm[Hg] eCW1 ([facility]) Systolic blood pressure 130 mm[Hg] 130 mm[Hg] e CW1 ([facility]) Body temperature 97.0 [degF] 97.0 [degF] eCW1 ( [facility]) Respiratory rate 18 /min 18 /min eCW1 ([facility]) Heart rate 72 /min 72 /min eCW1 ([facility]) Body mass index (BMI) [Ratio] 39.84 kg/m2 39.84 kg/m2 eCW1 ([facility]) Body height 67.5 [in_us] 67.5 [in_us] eCW1 ([facility]) Body weight Measured 258.2 [lb_av] 258.2 [lb_av ] eCW1 ([facility]) Diastolic blood pressure 78 mm[Hg] 78 mm[Hg] eCW1 ([facility]) Systolic blood pressure 138 mm[Hg] 138 mm[Hg] e CW1 ([facility]) Body temperature 97.3 [degF] 97.3 [degF] eCW1 ( [facility]) Respiratory rate 18 /min 18 /min eCW1 ([facility]) Heart rate 79 /min 79 /min eCW1 ([facility]) Body mass index (BMI) [Ratio] 40.76 kg/m2 40.76 kg/m2 eCW1 ([facility]) Body height 67.5 [in_us] 67.5 [in_us] eCW1 ([facility]) Body weight Measured 264.2 [lb_av] 264.2 [lb_av ] eCW1 ([facility]) Deprecated Oxygen saturation in Capillary blood by Oximetry 98 % 98 % eCW1 ([facility]) Respiratory rate 18 /min 18 /min eCW1 ([facility]) Heart rate 72 /min 72 /min eCW1 ([facility]) Body temperature 98.2 [degF] 98.2 [degF] eCW1 ( [facility]) Body mass index (BMI) [Ratio] 40.24 kg/m2 40.24 kg/m2 eCW1 ([facility]) Body weight Measured 260.8 [lb_av] 260.8 [lb_av ] eCW1 ([facility]) Body height 67.5 [in_us] 67.5 [in_us] eCW1 ([facility]) Deprecated Oxygen saturation in Capillary blood by Oximetry 97 % 97 % eCW1 ([facility]) Respiratory rate 18 /min 18 /min eCW1 ([facility]) Heart rate 69 /min 69 /min eCW1 ([facility]) Body temperature 98.2 [degF] 98.2 [degF] eCW1 ( [facility]) Body mass index (BMI) [Ratio] 41.20 kg/m2 41.20 kg/m2 eCW1 ([facility]) Body weight Measured 267.0 [lb_av] 267.0 [lb_av ] eCW1 ([facility]) Body height 67.5 [in_us] 67.5 [in_us] eCW1 ([facility]) Diastolic blood pressure 94 mm[Hg] 94 mm[Hg] eCW1 ([facility]) Systolic blood pressure 191 mm[Hg] 191 mm[Hg] e CW1 ([facility]) Body temperature 98.1 [degF] 98.1 [degF] eCW1 ( [facility]) Respiratory rate 18 /min 18 /min eCW1 ([facility]) Heart rate 72 /min 72 /min eCW1 ([facility]) Body mass index (BMI) [Ratio] 40.76 kg/m2 40.76 kg/m2 eCW1 ([facility]) Body height 67.5 [in_us] 67.5 [in_us] eCW1 ([facility]) Body weight Measured 264.2 [lb_av] 264.2 [lb_av ] eCW1 ([facility]) Diastolic blood pressure 100 mm[Hg] 100 mm[Hg] eCW1 ([facility]) Systolic blood pressure 180 mm[Hg] 180 mm[Hg] e CW1 ([facility]) Body temperature 96.0 [degF] 96.0 [degF] eCW1 ( [facility]) Respiratory rate 18 /min 18 /min eCW1 ([facility]) Heart rate 96.0 /min 96.0 /min eCW1 ([facility]) Body mass index (BMI) [Ratio] 40.70 kg/m2 40.70 kg/m2 eCW1 ([facility]) Body height 67.5 [in_us] 67.5 [in_us] eCW1 ([facility]) Body weight Measured 263.8 [lb_av] 263.8 [lb_av ] eCW1 ([facility]) ID Date Data Source [id number] [facility] Value Range Interpretation Code Description Data Source(s) WEIGHT RECORDED 271.6 lb 271.6 lb [facility] Body height Measured 68 in 68 in [facility] WEIGHT RECORDED 271.17 lb 271.17 lb [facility] WEIGHT RECORDED 272.05 lb 272.05 lb [facility] WEIGHT RECORDED 307 lb 307 lb [facility] WEIGHT RECORDED 276.68 lb 276.68 lb [facility] WEIGHT RECORDED 276.68 lb 276.68 lb [facility] WEIGHT RECORDED 283.51 lb 283.51 lb [facility] Body height Measured 70 in 70 in [facility] WEIGHT RECORDED 283.4 lb 283.4 lb [facility] WEIGHT RECORDED 267 lb 267 lb [facility] TRANSFER FROM [facility] WEIGHT RECORDED 267 lb 267 lb [facility] ID Date Data Source [id number] 12/13/2019 04:50:45 PM [facility] Name Value Range Interpretation Code Description Data Source(s) WEIGHT RECORDED 242.51 lb 242.51 lb [facility] Body height Measured 70.87 in 70.87 in [facility] Patient Treatment Plan of Care Planned Activity Planned Date Details Description Data Source (s) Nebulizer - 06/25/2020 12:00:00 AM EST e CW1 ([facility]) Nebulizer - 06/25/2020 12:00:00 AM EST e CW1 ([facility]) Nebulizer - 06/25/2020 12:00:00 AM EST e CW1 ([facility]) Nebulizer - 06/25/2020 12:00:00 AM EST e CW1 ([facility]) Nebulizer - 06/25/2020 12:00:00 AM EST e CW1 ([facility]) Nebulizer - 06/25/2020 12:00:00 AM EST e CW1 ([facility]) Nebulizer - 06/25/2020 12:00:00 AM EST e CW1 ([facility]) Nebulizer - 06/25/2020 12:00:00 AM EST e CW1 ([facility]) Nebulizer - 06/25/2020 12:00:00 AM EST e CW1 ([facility]) Nebulizer - 06/25/2020 12:00:00 AM EST e CW1 ([facility]) ANNABELLE LIFT - 06/19/2020 12:00:00 AM EST e CW1 ([facility]) ANNABELLE LIFT - 06/19/2020 12:00:00 AM EST e CW1 ([facility]) ANNABELLE LIFT - 06/19/2020 12:00:00 AM EST e CW1 ([facility]) ANNABELLE LIFT - 06/19/2020 12:00:00 AM EST e CW1 ([facility]) ANNABELLE LIFT - 06/19/2020 12:00:00 AM EST e CW1 ([facility]) ANNABELLE LIFT - 06/19/2020 12:00:00 AM EST e CW1 ([facility]) ANNABELLE LIFT - 06/19/2020 12:00:00 AM EST e CW1 ([facility]) ANNABELLE LIFT - 06/19/2020 12:00:00 AM EST e CW1 ([facility]) ANNABELLE LIFT - 06/19/2020 12:00:00 AM EST e CW1 ([facility]) ANNABELLE LIFT - 06/19/2020 12:00:00 AM EST e CW1 ([facility]) ANNABELLE LIFT - 06/19/2020 12:00:00 AM EST e CW1 ([facility]) ANNABELLE LIFT - 06/19/2020 12:00:00 AM EST e CW1 ([facility]) Blood Pressure Kit - 05/08/2020 12:00:00 AM EST eCW1 ([facility]) Trapeze - 03/08/2020 12:00:00 AM EDT e CW1 ([facility]) ALTERNATING PRESSURE MATTRESS - 03/08/2020 12:00:00 AM EDT eCW1 ([facility]) Incontinence Brief Large - 03/07/2020 12:00:00 AM EDT eCW1 ([facility]) ALTERNATING PRESSURE MATTRESS - 03/07/2020 12:00:00 AM EDT eCW1 ([facility]) Incontinence Brief Large - 03/07/2020 12:00:00 AM EDT eCW1 ([facility]) ALTERNATING PRESSURE MATTRESS - 03/07/2020 12:00:00 AM EDT eCW1 ([facility]) Incontinence Brief Large - 03/07/2020 12:00:00 AM EDT eCW1 ([facility]) Optifoam 4"X4" 03/06/2020 12:00:00 AM EDT eCW1 ([facility]) 4x4 03/06/2020 12:00:00 AM EDT e CW1 ([facility]) Tracheostomy Care - 03/06/2020 12:00:00 AM EDT eCW1 ([facility]) Optifoam 4"X4" 03/06/2020 12:00:00 AM EDT eCW1 ([facility]) Tracheostomy Care - 03/06/2020 12:00:00 AM EDT eCW1 ([facility]) Curity Wood Catheter Tray - 03/06/2020 12:00:00 AM EDT eCW1 ([facility]) Gastrostomy care - 03/06/2020 12:00:00 AM EDT eCW1 ([facility]) 4x4 03/06/2020 12:00:00 AM EDT e CW1 ([facility]) Optifoam 4"X4" 03/06/2020 12:00:00 AM EDT eCW1 ([facility]) Tracheostomy Care - 03/06/2020 12:00:00 AM EDT eCW1 ([facility]) Curity Wood Catheter Tray - 03/06/2020 12:00:00 AM EDT eCW1 ([facility]) Gastrostomy care - 03/06/2020 12:00:00 AM EDT eCW1 ([facility]) 4x4 03/06/2020 12:00:00 AM EDT e CW1 ([facility]) Optifoam 4"X4" 03/06/2020 12:00:00 AM EDT eCW1 ([facility]) Tracheostomy Care - 03/06/2020 12:00:00 AM EDT eCW1 ([facility]) Curity Wood Catheter Tray - 03/06/2020 12:00:00 AM EDT eCW1 ([facility]) Optifoam 4"X4" 03/06/2020 12:00:00 AM EDT eCW1 ([facility]) Curity Wood Catheter Tray - 03/06/2020 12:00:00 AM EDT eCW1 ([facility]) 4x4 03/06/2020 12:00:00 AM EDT e CW1 ([facility]) Gastrostomy care - 03/06/2020 12:00:00 AM EDT eCW1 ([facility]) Tracheostomy Care - 03/06/2020 12:00:00 AM EDT eCW1 ([facility]) Optifoam 4"X4" 03/06/2020 12:00:00 AM EDT eCW1 ([facility]) Curity Wood Catheter Tray - 03/06/2020 12:00:00 AM EDT eCW1 ([facility]) 4x4 03/06/2020 12:00:00 AM EDT e CW1 ([facility]) Gastrostomy care - 03/06/2020 12:00:00 AM EDT eCW1 ([facility]) Tracheostomy Care - 03/06/2020 12:00:00 AM EDT eCW1 ([facility]) Gastrostomy care - 03/06/2020 12:00:00 AM EDT eCW1 ([facility]) 4x4 03/06/2020 12:00:00 AM EDT e CW1 ([facility]) Melatonin 5 MG 03/02/2020 01:00:00 AM EDT NETSMART ([facility]) Nystatin Powder 03/02/2020 01:00:00 AM EDT NETSMART ([facility]) Metoclopramide HCl 5 MG 03/02/2020 01:00:00 AM EDT NETSMART ([facility]) Methocarbamol 500 MG 03/02/2020 01:00:00 AM EDT NETSMART ([facility]) Ipratropium-Albuterol 0.5-2.5 (3) MG/3ML 03/02/2020 01:00:00 AM EDT NETSMART ([facility]) hydrOXYzine HCl 25 MG 03/02/2020 01:00:00 AM EDT NETSMART ([facility]) PredniSONE 5 MG 03/02/2020 01:00:00 AM EDT NETSMART ([facility]) predniSONE 10 MG 03/02/2020 01:00:00 AM EDT NETSMART ([facility]) GuaiFENesin 100 MG/5ML 03/02/2020 01:00:00 AM EDT NETSMART ([facility]) Docusate Sodium 283 MG 03/02/2020 01:00:00 AM EDT NETSMART ([facility]) Diclofenac Sodium 1 % 03/02/2020 01:00:00 AM EDT NETSMART ([facility]) Acetaminophen 325 MG 03/02/2020 01:00:00 AM EDT NETSMART ([facility]) Sennosides 8.6 MG 03/02/2020 01:00:00 AM EDT NETSMART ([facility]) Meloxicam 7.5 MG 03/02/2020 01:00:00 AM EDT NETSMART ([facility]) Hydroxychloroquine Sulfate 200 MG 03/02/2020 01:00:00 AM EDT NETSMART ([facility]) Gabapentin (Once-Daily) 600 MG 03/02/2020 01:00:00 AM EDT NETSMART ([facility]) DULoxetine HCl 60 MG 03/02/2020 01:00:00 AM EDT NETSMART ([facility]) Docusate Sodium 100 MG 03/02/2020 01:00:00 AM EDT NETSMART ([facility]) Buprenorphine HCl-Naloxone HCl 4-1 MG 03/02/2020 01:00:00 AM [facility] ([facility]) Atenolol 25 MG 03/02/2020 01:00:00 AM [facility] ([facility]) Polyethylene Glycol 3350 17 GM 03/02/2020 01:00:00 AM [facility]) Propylene Glycol 0.6 % 03/02/2020 01:00:00 AM [facility]) gabapentin 600 MG Oral Tablet 02/17/2020 12:00:00 AM [facility] Atenolol 25 MG Oral Tablet 02/17/2020 12:00:00 AM [facility] Buprenorphine 4 MG / Naloxone 1 MG Oral Strip 02/17/2020 12:00:00 A M [facility] Buprenorphine 4 MG / Naloxone 1 MG Oral Strip 02/17/2020 12:00:00 A M [facility] duloxetine 60 MG Delayed Release Oral Capsule 02/17/2020 12:00:00 A M [facility] POLYETHYLENE GLYCOL 3350 142 MG/ML Oral Solution 02/17/2020 12:00:0 0 AM [facility] Hydroxychloroquine Sulfate 200 MG Oral Tablet 02/17/2020 12:00:00 A M [facility] meloxicam 7.5 MG Oral Tablet 02/17/2020 12:00:00 AM [facility] Prednisone 10 MG Oral Tablet 02/17/2020 12:00:00 AM [facility] Guaifenesin 20 MG/ML Oral Solution 02/16/2020 12:08:15 PM [facility] Nystatin 100 UNT/MG Topical Powder 02/16/2020 12:00:00 AM [facility] Melatonin 5 MG Oral Tablet 02/16/2020 12:00:00 AM [facility] Methocarbamol 500 MG Oral Tablet 02/16/2020 12:00:00 AM [facility] Acetaminophen 325 MG Oral Tablet 02/16/2020 12:00:00 AM [facility] Carboxymethylcellulose Sodium 5 MG/ML Ophthalmic Solut ion 02/16/2020 12:00:[address] [facility] Diclofenac Sodium 0.01 MG/MG Topical Gel 02/16/2020 12:00:00 AM [facility] gabapentin 300 MG Oral Capsule 02/16/2020 12:00:00 AM [facility] Docusate Sodium 100 MG Oral Capsule 02/16/2020 12:00:00 AM [facility] Docusate Sodium 56.6 MG/ML Enema 02/16/2020 12:00:00 AM [facility] Guaifenesin 20 MG/ML Oral Solution 02/16/2020 12:00:00 AM [facility] Hydroxyzine Hydrochloride 25 MG Oral Tablet 02/16/2020 12:00:00 AM [facility] Albuterol 0.833 MG/ML / Ipratropium [place] 0.167 MG/M L Inhalant Solution 02/16/2020 12:00:00 AM [facility] Metoclopramide 5 MG Oral Tablet 02/16/2020 12:00:00 AM [facility] Prednisone 5 MG Oral Tablet 02/16/2020 12:00:00 AM [facility] [place] 8.6 MG Oral Tablet 02/16/2020 12:00:00 AM [facility] Sodium Chloride 0.111 MEQ/ML Nasal Solution 02/15/2020 09:38:56 AM [facility] lidocaine (LIDODERM) 5 % patch 1 patch 12/20/2019 08:30:00 AM [facility] POLYETHYLENE GLYCOL 3350 142 MG/ML Oral Solution 12/14/2019 12:00:0 0 AM [facility] Lisinopril 10 MG Oral Tablet 12/14/2019 12:00:00 AM [facility] duloxetine 60 MG Delayed Release Oral Capsule 12/14/2019 12:00:00 A M [facility] Atenolol 25 MG Oral Tablet 12/14/2019 12:00:00 AM [facility], INTERMEDIATE 35.2 MG/ML Oral Solution 12/13/2019 12:00:00 AM [facility] Methocarbamol 500 MG Oral Tablet 12/13/2019 12:00:00 AM [facility] Melatonin 5 MG Oral Tablet 12/13/2019 12:00:00 AM [facility] Lidocaine 5 % External Patch (LIDODERM) 12/13/2019 12:00:00 AM [facility] insulin lispro 100 UNIT/ML SC injection HIGH DOSE TUBE CONT INSULIN patients 12/13/2019 12:00:00 AM [facility] Insulin Glargine 100 UNT/ML Injectable Solution 12/13/2019 12:00:00 AM [facility] Ibuprofen 20 MG/ML Oral Suspension 12/13/2019 12:00:00 AM [facility] Diclofenac Sodium 0.01 MG/MG Topical Gel 12/13/2019 12:00:00 AM [facility] Carboxymethylcellulose Sodium 5 MG/ML Ophthalmic Solut ion 12/13/2019 12:00:[address] [facility] Buprenorphine 2 MG / Naloxone 0.5 MG Oral Strip 12/13/2019 12:00:00 AM [facility] Bisacodyl 10 MG Rectal Suppository 12/13/2019 12:00:00 AM [facility] Acetaminophen 32 MG/ML Oral Solution 12/13/2019 12:00:00 AM [facility] gabapentin 50 MG/ML Oral Solution 12/13/2019 12:00:00 AM [facility] POLYETHYLENE GLYCOL 3350 142 MG/ML Oral Solution 12/12/2019 09:00:0 0 AM [facility] dextrose 50 % IV solution 50 mL 12/11/2019 11:21:53 PM [facility] albuterol (PROVENTIL HFA) inhaler 2 puff 12/09/2019 04:56:48 AM [facility] propofol (DIPRIVAN) 1000 MG/100ML infusion 11/07/2019 03:21:26 PM [facility] Succinylcholine Chloride 20 MG/ML Injectable Solution 11/07/2019 03:17:[address] [facility] 2 ML Midazolam 1 MG/ML Injection 11/07/2019 03:17:09 PM [facility] fentaNYL (SUBLIMAZE) 100 MCG/2ML (PF) injection 11/07/2019 03:16:58 PM [facility] Glucagon 1 MG Injection 11/03/2019 09:49:40 AM [facility] Acetaminophen 325 MG / Oxycodone Hydrochloride 7.5 MG Oral Tablet 11/01/2019 12:00:00 AM [place] [address] ([facility]) Acetaminophen 325 MG / Oxycodone Hydrochloride 7.5 MG Oral Tablet 11/01/2019 12:00:00 AM EDT eCW1 ([facility]) Acetaminophen 325 MG / Oxycodone Hydrochloride 7.5 MG Oral Tablet 11/01/2019 12:00:00 AM EDT eCW1 ([facility]) Acetaminophen 325 MG / Oxycodone Hydrochloride 7.5 MG Oral Tablet 11/01/2019 12:00:00 AM EDT eCW1 ([facility]) Acetaminophen 325 MG / Oxycodone Hydrochloride 7.5 MG Oral Tablet 11/01/2019 12:00:00 AM EDT eCW1 ([facility]) Acetaminophen 325 MG / Oxycodone Hydrochloride 7.5 MG Oral Tablet 11/01/2019 12:00:00 AM EDT eCW1 ([facility]) Magnesium 400 MG 09/27/2019 12:00:00 AM EDT eCW1 ([facility]) Prednisone 10 MG Oral Tablet 09/27/2019 12:00:00 AM EDT eCW1 ([facility]) Acetaminophen 325 MG Oral Tablet [Tylenol] 09/27/2019 12:00:00 AM E DT eCW1 ([facility]) Capsaicin 0.93887 MG/MG / Lidocaine Hydr ochloride 0.005 MG/MG / Menthol 0.05 MG/MG / methyl salicylate 0.2 MG/MG Transdermal Patch 09/27/2019 12:00:00 AM EDT eCW1 ([facility]) Magnesium 400 MG 09/27/2019 12:00:00 AM EDT eCW1 ([facility]) Prednisone 20 MG Oral Tablet 09/27/2019 12:00:00 AM EDT eCW1 ([facility]) Acetaminophen 325 MG / Oxycodone Hydrochloride 7.5 MG Oral Tablet 09/27/2019 12:00:00 AM EDT eCW1 ([facility]) Acetaminophen 325 MG / Oxycodone Hydrochloride 7.5 MG Oral Tablet 09/02/2019 12:00:00 AM EDT eCW1 ([facility]) Phenazopyridine hydrochloride 200 MG Oral Tablet [Pyri dium] 08/16/2019 12:00:00 AM EDT eCW1 ([facility]) Phenazopyridine hydrochloride 200 MG Oral Tablet [Pyri dium] 08/15/2019 12:00:00 AM EDT eCW1 ([facility]) Acetaminophen 325 MG / Oxycodone Hydrochloride 7.5 MG Oral Tablet 08/02/2019 12:00:00 AM EST eCW1 ([facility]) Levothyroxine Sodium 0.025 MG Oral Tablet 07/22/2019 12:00:00 AM ES T eCW1 ([facility]) Metformin hydrochloride 500 MG Oral Tablet 07/22/2019 12:00:[address] eCW1 ([facility]) Vitamin D3 50 MCG (1999) 07/20/2019 12:00:00 AM EST eCW1 ([facility]) Acetaminophen 325 MG / Oxycodone Hydrochloride 7.5 MG Oral Tablet 07/05/2019 12:00:00 AM EST eCW1 ([facility]) Acetaminophen 325 MG / Oxycodone Hydrochloride 7.5 MG Oral Tablet 06/08/2019 12:00:00 AM EST eCW1 ([facility]) Hydrochlorothiazide 25 MG Oral Tablet [facility] tizanidine 4 MG Oral Tablet [facility] Acetaminophen 325 MG / Oxycodone Hydrochloride 7.5 MG Oral Tablet [facility] Lisinopril 10 MG Oral Tablet [facility] gabapentin 600 MG Oral Tablet [facility] duloxetine 60 MG Delayed Release Oral Capsule [facility] Atenolol 25 MG Oral Tablet U [facility]
[2020-07-13] MEDS ORDERED: PILL CUTTER 1 EACH XX ONE (20:36)
[2020-07-13] MEDS: GABAPENTIN 300 MG CAP PO SCH (20:45)
[2020-07-13] MEDS ORDERED: BUPRENORPHINE/NALOXONE 8-2MG SUBLINGUAL TABLET(SUBOXONE) SL SCH (21:00)
--- NOTE | 2020-07-13 21:29 | ECGEPIP ---
[facility] - ED Test Date: 2020-07-13 Pat Name: HANNA GARVIN Department: Room: - Gender: Female Pace Analyst: ferdinand : 1955 Requested By: Aries Carpenter Order Number: [id number] Reading MD: Alisha Lopez Measurements Intervals Browns Rate: 87 P: 11 OR: 155 QRS: 66 QRSD: 110 T: 16 QT: 365 QTc: 441 Interpretive Statements SINUS RHYTHM LOW QRS VOLTAGE IN PRECORDIAL LEADS POSSIBLE ANTERIOR MYOCARDIAL INFARCTION, OF INDETERMINATE AGE DECREASED RATE 05/31/20 Electronically Signed on 07-13-2020 21:28:36 EST by Alisha Lopez
[2020-07-13 21:40] VITALS: BP 125/60
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
[2020-07-13] MEDS: RAMELTEON 8 MG TAB (ROZEREM) PO PRN (23:47)
[2020-07-13] MEDS: DULoxetine 30 MG CAP (CYMBALTA) PO SCH (23:47)
[2020-07-13] MEDS: SENOKOT S TAB PO SCH (23:47)
[2020-07-13] MEDS: FERROUS GLUCONATE 324 MG TAB PO SCH (23:47)
[2020-07-13] MEDS: ATORVASTATIN 20 MG TAB PO SCH (23:47)
[2020-07-13] MEDS: METOCLOPRAMIDE 5 MG TAB PO SCH (23:51)
[2020-07-13] MEDS: NORCO, ANEXSIA 5/325MG TABLET (HYDROcodone/ACETAMINOPHEN) PO PRN (23:52)
[2020-07-14] VITALS (7 sets, daily range): BP systolic 106–121; BP diastolic 57–64; O2SAT 94
[2020-07-14 05:16] LABS: BASO # 0.2 10^3/uL (0.0-0.2); BASO % 0.8 % (0.0-1.0); EOS # 0.3 10^3/uL (0.0-0.5); EOS % 1.3 % (0.0-3.0); HEMATOCRIT 31.4 % (36.0-47.0); HEMOGLOBIN 9.1 g/dl (12.0-15.5); LYMPH # 1.7 10^3/uL (1.5-5.0); LYMPH % 6.8 % (24.0-44.0); MEAN CORPUSCULAR HEMOGLOBIN 23.9 pg (27.0-33.0); MEAN CORPUSCULAR VOLUME 82.6 fl (80.0-96.0); MONO # 2.6 10^3/uL (0.0-0.8); MONO % 10.4 % (2.0-8.0); NEUTROPHILS % 78.8 % (36.0-66.0); PLATELET COUNT, AUTOMATED 655 10^3/uL (150-450); WHITE BLOOD COUNT 25.4 10^3/uL (4.0-10.0)
[2020-07-14 05:53] LABS: BLOOD UREA NITROGEN 11 MG/DL (7-18); CALCIUM LEVEL 7.8 MG/DL (8.8-10.2); CARBON DIOXIDE LEVEL 33 MEQ/L (21-32); CHLORIDE LEVEL 97 MEQ/L (98-107); GLOMERULAR FILTRATION RATE > 60.0 (>45); GLUCOSE, FASTING 120 MG/DL (70-100); POTASSIUM SERUM 3.8 MEQ/L (3.5-5.1); SODIUM LEVEL 136 MEQ/L (136-145)
[2020-07-14] MEDS: LEVOTHYROXINE 50MCG TABLET (0.05MG) PO SCH (05:59)
[2020-07-14] MEDS: CEFEPIME HCL 1 GM in D5W MINI-BAG PLUS 50 ML IV SCH ×2 (06:00→17:02)
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
[2020-07-14] MEDS ORDERED: VANCOMYCIN HCL 1,000 MG, VIAL MATE ADAPTER 1 EACH in D5W 250 ML IV SCH (08:00)
[2020-07-14] MEDS: METOCLOPRAMIDE 5 MG TAB PO SCH ×2 (08:44→21:38)
[2020-07-14] MEDS: ASPIRIN 81 MG ENTERIC TAB PO SCH (08:45)
[2020-07-14] MEDS: MELOXICAM (MOBIC) 7.5 MG TAB PO SCH (08:45)
[2020-07-14] MEDS: ANEXSIA, NORCO 7.5MG/325MG TABLET(HYDROCODONE/APAP) PO PRN (08:45)
[2020-07-14] MEDS: SENOKOT S TAB PO SCH ×2 (08:45→21:20)
[2020-07-14] MEDS: CYANOCOBALAMIN 250 MCG TABLET PO SCH (08:45)
[2020-07-14] MEDS: BISACODYL 5 MG TAB PO SCH (08:46)
[2020-07-14] MEDS: GABAPENTIN 300 MG CAP PO SCH ×3 (08:46→21:19)
[2020-07-14] MEDS: FOLIC ACID 1 MG TAB PO SCH (08:46)
[2020-07-14] MEDS: VANCOMYCIN HCL 1,000 MG, VIAL MATE ADAPTER 1 EACH in D5W 250 ML IV SCH ×2 (08:47→21:11)
[2020-07-14] MEDS: ENOXAPARIN 40MG/0.4ML SYRINGE (J1650 PER 10MG) SC SCH (08:47)
[2020-07-14] MEDS ORDERED: VANCOMYCIN HCL 1,000 MG, VIAL MATE ADAPTER 1 EACH in D5W 250 ML IV ONE (09:00)
[2020-07-14] MEDS ORDERED: FUROSEMIDE 40 MG TAB PO SCH (09:00)
[2020-07-14] MEDS: DULoxetine 30 MG CAP (CYMBALTA) PO SCH (21:19)
[2020-07-14] MEDS: FERROUS GLUCONATE 324 MG TAB PO SCH (21:20)
[2020-07-14] MEDS: ATORVASTATIN 20 MG TAB PO SCH (21:20)
[2020-07-14] MEDS: NORCO, ANEXSIA 5/325MG TABLET (HYDROcodone/ACETAMINOPHEN) PO PRN ×2 (22:20→22:24)
[2020-07-15] VITALS: BP 131/48
[2020-07-15 04:00] VITALS: BP 111/63
[2020-07-15 05:25] LABS: BLOOD UREA NITROGEN 11 MG/DL (7-18); CALCIUM LEVEL 7.5 MG/DL (8.8-10.2); CARBON DIOXIDE LEVEL 27 MEQ/L (21-32); CHLORIDE LEVEL 97 MEQ/L (98-107); GLOMERULAR FILTRATION RATE > 60.0 (>45); GLUCOSE, FASTING 83 MG/DL (70-100); POTASSIUM SERUM 3.9 MEQ/L (3.5-5.1); SODIUM LEVEL 134 MEQ/L (136-145)
[2020-07-15 05:26] LABS: BASO # 0.3 10^3/uL (0.0-0.2); BASO % 0.8 % (0.0-1.0); EOS # 1.6 10^3/uL (0.0-0.5); EOS % 4.2 % (0.0-3.0); HEMATOCRIT 31.2 % (36.0-47.0); HEMOGLOBIN 9.1 g/dl (12.0-15.5); LYMPH # 3.5 10^3/uL (1.5-5.0); LYMPH % 9.3 % (24.0-44.0); MEAN CORPUSCULAR HEMOGLOBIN 24.4 pg (27.0-33.0); MEAN CORPUSCULAR HGB CONC 29.2 g/dl (32.0-36.5); MEAN CORPUSCULAR VOLUME 83.6 fl (80.0-96.0); MONO # 3.7 10^3/uL (0.0-0.8); MONO % 9.6 % (2.0-8.0); PLATELET COUNT, AUTOMATED 676 10^3/uL (150-450); RED BLOOD COUNT 3.73 10^6/uL (4.00-5.40)
[2020-07-15 05:33] LABS: WHITE BLOOD COUNT 37.9 10^3/uL (4.0-10.0)
[2020-07-15] MEDS: CEFEPIME HCL 1 GM in D5W MINI-BAG PLUS 50 ML IV SCH ×2 (06:55→16:54)
[2020-07-15] MEDS: LEVOTHYROXINE 50MCG TABLET (0.05MG) PO SCH (06:55)
[2020-07-15] MEDS: NORCO, ANEXSIA 5/325MG TABLET (HYDROcodone/ACETAMINOPHEN) PO PRN ×3 (07:33→21:30)
[2020-07-15 08:00] VITALS: BP 96/53
[2020-07-15] MEDS: CYANOCOBALAMIN 250 MCG TABLET PO SCH (09:00)
[2020-07-15] MEDS: VANCOMYCIN HCL 1,000 MG, VIAL MATE ADAPTER 1 EACH in D5W 250 ML IV SCH ×2 (10:01→21:29)
[2020-07-15] MEDS: metroNIDAZOLE (FLAGYL) 500MG TABLET PO SCH ×3 (10:02→21:31)
[2020-07-15] MEDS: GABAPENTIN 300 MG CAP PO SCH ×3 (10:02→21:31)
[2020-07-15] MEDS: ASPIRIN 81 MG ENTERIC TAB PO SCH (10:02)
[2020-07-15] MEDS: FOLIC ACID 1 MG TAB PO SCH (10:02)
[2020-07-15] MEDS: SENOKOT S TAB PO SCH ×2 (10:02→21:31)
[2020-07-15] MEDS: MELOXICAM (MOBIC) 7.5 MG TAB PO SCH (10:02)
[2020-07-15] MEDS: BISACODYL 5 MG TAB PO SCH (10:03)
[2020-07-15] MEDS: ENOXAPARIN 40MG/0.4ML SYRINGE (J1650 PER 10MG) SC SCH (10:04)
[2020-07-15] MEDS: METOCLOPRAMIDE 5 MG TAB PO SCH ×2 (10:07→21:31)
[2020-07-15] MEDS ORDERED: SLF 3 ML SYR IV PRN (11:30)
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
[2020-07-15 12:00] VITALS: BP 111/58
[2020-07-15] MEDS: SLF 3 ML SYR IV SCH ×2 (14:03→21:32)
--- NOTE | 2020-07-15 15:43 | CR.PDOC ---
General Date of Consultation: Jul 15, 2020 Consultation REASON FOR CONSULTATION/CHIEF COMPLAINT: Investigate for vaginal fistula / vaginal erosion HISTORY OF PRESENT ILLNESS: 64yo with multiple co-morbidities. See H&P. Pt has sacral pressure ulcer and bilateral ischial ulcer ulcers.. There has been increased discharge from the pelvis since her admission, and there has been raised concern for any communication of her lesions into the vagina. PHYSICAL EXAMINATION: VITAL SIGNS: Please see below. PELVIC: wound dressings in close proximity to perineum and vulva. No direct vulvar ulceration or clear lesion. Vaginal exam revealed no evidence of ulceration of fistula. Each compartment of the vaginal wall was palpated, and I could not appreciate any vaginal wall defect, nor was there discharge coming directly from the vagina. No bleeding with internal exam. LABORATORY DATA: Please see below. ASSESSMENT/PLAN: 1. No evidence of fistula or ulceration involving the vagina or vulva. 2. Given the limitations of a pelvic exam in her hospital bed, consider imaging (enema w/ contrast). Please notify [facility] if this imaging procedure is elected. This would be a good opportunity to do another exam for further investigation. Omar Baxter, DO Vital Signs/I&O Vital Signs Date Time Temp Pulse Resp B/P (MAP) Pulse Ox O2 Delivery O2 Flow Rate FiO2 07/15/20 14:39 16 07/15/20 12:00 95.5 96 111/58 (75) 98 Nasal Cannula 2.0 07/14/20 09:00 30 I&O- Last 24 Hours up to 6 AM 07/15/20 06:00 Intake Total 1420 ml Output Total 650 ml Balance 770 ml Laboratory Data Labs 24H Laboratory Tests 2 07/15/20 04:26: Immature Granulocyte % (Auto) 2.1, Neutrophils (%) (Auto) 74.0H, Lymphocytes (%) (Auto) 9.3L, Monocytes (%) (Auto) 9.6H, Eosinophils (%) (Auto) 4.2H, Basophils (%) (Auto) 0.8, Neutrophils # (Auto) 28.0H, Lymphocytes # (Auto) 3.5, Monocytes # (Auto) 3.7H, Eosinophils # (Auto) 1.6H, Basophils # (Auto) 0.3H, Nucleated Red Blood Cells % (auto) 0.0, Anion Gap 10, Glomerular Filtration Rate > 60.0, Calcium Level 7.5L CBC/BMP Laboratory Tests 07/15/20 04:26 Microbiology Microbiology 07/13/20 Blood Culture - Preliminary, Resulted No growth after 24 hours . All specim... 07/13/20 Respiratory Virus Panel (PCR) (PARISA) - Final, Complete 07/13/20 Urine Culture - Final, Complete Klebsiella Pneumoniae 07/13/20 Blood Culture - Preliminary, Resulted Allergies Coded Allergies: No Known Allergies (Unverified , 10/15/18) Home Medications Scheduled Aspirin (Aspirin EC) 81 Mg Tablet.dr, 81 MG PO DAILY, (Reported) Atorvastatin Calcium (Atorvastatin Calcium) 40 Mg Tablet, 40 MG PO QHS, ( Reported) Cyanocobalamin (Vitamin B-12) (Vitamin B-12) 250 Mcg Tablet, 250 MCG PO DAILY, (Reported) Docusate Sodium (Colace) 100 Mg Capsule, 100 MG PO BID, (Reported) Duloxetine HCl (Duloxetine HCl) 60 Mg Capsule.dr, 60 MG PO QHS, (Reported) Ferrous Gluconate (Ferrous Gluconate) 324 Mg Tablet, 324 MG PO QHS, (Reported) Folic Acid (Folic Acid) 1 Mg Tablet, 1 MG PO DAILY, (Reported) Furosemide (Furosemide) 40 Mg Tablet, 40 MG PO DAILY, (Reported) Gabapentin (Gabapentin) 600 Mg Tablet, 900 MG PO TID, (Reported) Levothyroxine Sodium (Levoxyl) 50 Mcg Tablet, 50 MCG PO DAILY, (Reported) Meloxicam (Mobic) 7.5 Mg Tablet, 7.5 MG PO DAILY, (Reported) Methocarbamol (Methocarbamol) 500 Mg Tablet, 500 MG PO QID, (Reported) Metoclopramide HCl (Metoclopramide HCl) 5 Mg Tablet, 5 MG PO BID, (Reported) Sennosides (Senna Lax) 8.6 Mg Tablet, 8.6 MG PO QHS, (Reported) Tizanidine HCl (Tizanidine HCl) 2 Mg Tablet, 2 MG PO TID, (Reported) Scheduled PRN Ondansetron HCl (Zofran) 4 Mg Tablet, 4 MG PO TID PRN for NAUSEA, (Reported) Polyethylene Glycol 3350 (Miralax) 119 Gm Powder, 17 GM PO DAILY PRN for CONSTIPATION, (Reported) MELA BAXTER DO Jul 15, 2020 15:43
[2020-07-15 16:00] VITALS: BP_SYST 107; BP_SYST 98; BP_DIAS 54; BP_DIAS 58
[2020-07-15 20:00] VITALS: BP 116/66
[2020-07-15] MEDS: RAMELTEON 8 MG TAB (ROZEREM) PO PRN (21:29)
[2020-07-15] MEDS: ATORVASTATIN 20 MG TAB PO SCH (21:31)
[2020-07-15] MEDS: DULoxetine 30 MG CAP (CYMBALTA) PO SCH (21:31)
[2020-07-15] MEDS: FERROUS GLUCONATE 324 MG TAB PO SCH (21:31)
[2020-07-16] VITALS: BP 106/62
[2020-07-16 04:00] VITALS: BP 108/58
[2020-07-16] MEDS: NORCO, ANEXSIA 5/325MG TABLET (HYDROcodone/ACETAMINOPHEN) PO PRN (04:24)
[2020-07-16 04:52] LABS: BASO # 0.2 10^3/uL (0.0-0.2); BASO % 0.9 % (0.0-1.0); EOS # 1.9 10^3/uL (0.0-0.5); HEMATOCRIT 29.3 % (36.0-47.0); HEMOGLOBIN 8.9 g/dl (12.0-15.5); LYMPH # 1.8 10^3/uL (1.5-5.0); LYMPH % 7.3 % (24.0-44.0); MEAN CORPUSCULAR HEMOGLOBIN 24.7 pg (27.0-33.0); MEAN CORPUSCULAR HGB CONC 30.4 g/dl (32.0-36.5); MEAN CORPUSCULAR VOLUME 81.2 fl (80.0-96.0); MONO # 1.9 10^3/uL (0.0-0.8); NEUTROPHILS # 17.6 10^3/uL (1.5-8.5); PLATELET COUNT, AUTOMATED 657 10^3/uL (150-450); RED BLOOD COUNT 3.61 10^6/uL (4.00-5.40); WHITE BLOOD COUNT 23.9 10^3/uL (4.0-10.0)
[2020-07-16 05:21] LABS: BLOOD UREA NITROGEN 12 MG/DL (7-18); CALCIUM LEVEL 7.8 MG/DL (8.8-10.2); CARBON DIOXIDE LEVEL 32 MEQ/L (21-32); CHLORIDE LEVEL 96 MEQ/L (98-107); CREATININE FOR GFR 0.52 MG/DL (0.55-1.30); GLOMERULAR FILTRATION RATE > 60.0 (>45); GLUCOSE, FASTING 86 MG/DL (70-100); POTASSIUM SERUM 3.5 MEQ/L (3.5-5.1); SODIUM LEVEL 134 MEQ/L (136-145)
[2020-07-16] MEDS: LEVOTHYROXINE 50MCG TABLET (0.05MG) PO SCH (06:30)
[2020-07-16] MEDS: SLF 3 ML SYR IV SCH ×3 (06:31→22:41)
[2020-07-16] MEDS: CEFEPIME HCL 1 GM in D5W MINI-BAG PLUS 50 ML IV SCH ×2 (06:31→17:20)
[2020-07-16 07:55] VITALS: BP 106/60
[2020-07-16] MEDS: GABAPENTIN 300 MG CAP PO SCH ×3 (08:59→20:45)
[2020-07-16] MEDS: METOCLOPRAMIDE 5 MG TAB PO SCH ×2 (08:59→20:45)
[2020-07-16] MEDS: CYANOCOBALAMIN 250 MCG TABLET PO SCH (08:59)
[2020-07-16] MEDS: ASPIRIN 81 MG ENTERIC TAB PO SCH (08:59)
[2020-07-16] MEDS: BISACODYL 5 MG TAB PO SCH (08:59)
[2020-07-16] MEDS: MELOXICAM (MOBIC) 7.5 MG TAB PO SCH (08:59)
[2020-07-16] MEDS: ENOXAPARIN 40MG/0.4ML SYRINGE (J1650 PER 10MG) SC SCH (08:59)
[2020-07-16] MEDS: SENOKOT S TAB PO SCH ×2 (08:59→20:45)
[2020-07-16] MEDS: FOLIC ACID 1 MG TAB PO SCH (08:59)
[2020-07-16] MEDS: VANCOMYCIN HCL 1,000 MG, VIAL MATE ADAPTER 1 EACH in D5W 250 ML IV SCH ×2 (08:59→20:44)
[2020-07-16] MEDS: metroNIDAZOLE (FLAGYL) 500MG TABLET PO SCH ×3 (10:08→20:45)
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
[2020-07-16] MEDS: ANEXSIA, NORCO 7.5MG/325MG TABLET(HYDROCODONE/APAP) PO PRN ×3 (11:00→23:17)
[2020-07-16] MEDS: SANTYL OINT 30GM TOP SCH (11:01)
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
[2020-07-16 12:00] VITALS: BP 134/75
[2020-07-16 16:00] VITALS: BP 112/68
[2020-07-16 20:00] VITALS: BP 119/81
[2020-07-16] MEDS: FERROUS GLUCONATE 324 MG TAB PO SCH (20:44)
[2020-07-16] MEDS: ATORVASTATIN 20 MG TAB PO SCH (20:45)
[2020-07-16] MEDS: DULoxetine 30 MG CAP (CYMBALTA) PO SCH (20:45)
[2020-07-16] MEDS ORDERED: HYALURONIDASE 150UNIT/ML 1ML VIAL (AMPHADASE) SC ONE (23:30)
[2020-07-17] VITALS (10 sets, daily range): BP systolic 109–156; BP diastolic 55–82
[2020-07-17] MEDS: CEFEPIME HCL 1 GM in D5W MINI-BAG PLUS 50 ML IV SCH ×2 (06:04→17:56)
[2020-07-17] MEDS: LEVOTHYROXINE 50MCG TABLET (0.05MG) PO SCH (06:04)
[2020-07-17] MEDS: ANEXSIA, NORCO 7.5MG/325MG TABLET(HYDROCODONE/APAP) PO PRN ×3 (06:05→23:58)
[2020-07-17] MEDS: SLF 3 ML SYR IV SCH ×3 (06:10→21:42)
[2020-07-17 06:26] LABS: BASO # 0.2 10^3/uL (0.0-0.2); BASO % 1.4 % (0.0-1.0); EOS # 1.1 10^3/uL (0.0-0.5); HEMATOCRIT 31.1 % (36.0-47.0); HEMOGLOBIN 9.3 g/dl (12.0-15.5); LYMPH # 1.9 10^3/uL (1.5-5.0); LYMPH % 11.7 % (24.0-44.0); MEAN CORPUSCULAR HEMOGLOBIN 24.4 pg (27.0-33.0); MEAN CORPUSCULAR HGB CONC 29.9 g/dl (32.0-36.5); MEAN CORPUSCULAR VOLUME 81.6 fl (80.0-96.0); MONO # 1.2 10^3/uL (0.0-0.8); MONO % 7.3 % (0.0-8.0); NEUTROPHILS # 11.2 10^3/uL (1.5-8.5); NEUTROPHILS % 70.3 % (36.0-66.0); PLATELET COUNT, AUTOMATED 644 10^3/uL (150-450); RED BLOOD COUNT 3.81 10^6/uL (4.00-5.40); WHITE BLOOD COUNT 15.9 10^3/uL (4.0-10.0)
[2020-07-17 06:50] LABS: BLOOD UREA NITROGEN 9 MG/DL (7-18); CALCIUM LEVEL 7.4 MG/DL (8.8-10.2); CARBON DIOXIDE LEVEL 32 MEQ/L (21-32); CHLORIDE LEVEL 97 MEQ/L (98-107); CREATININE FOR GFR 0.45 MG/DL (0.55-1.30); GLOMERULAR FILTRATION RATE > 60.0 (>45); GLUCOSE, FASTING 88 MG/DL (70-100); POTASSIUM SERUM 3.8 MEQ/L (3.5-5.1); SODIUM LEVEL 135 MEQ/L (136-145)
[2020-07-17] MEDS: VANCOMYCIN HCL 1,000 MG, VIAL MATE ADAPTER 1 EACH in D5W 250 ML IV SCH (08:13)
[2020-07-17] MEDS: SENOKOT S TAB PO SCH ×2 (08:26→21:41)
[2020-07-17] MEDS: CYANOCOBALAMIN 250 MCG TABLET PO SCH (08:26)
[2020-07-17] MEDS: BISACODYL 5 MG TAB PO SCH (08:27)
[2020-07-17] MEDS: FOLIC ACID 1 MG TAB PO SCH (08:27)
[2020-07-17] MEDS: METOCLOPRAMIDE 5 MG TAB PO SCH ×2 (08:27→21:41)
[2020-07-17] MEDS: ASPIRIN 81 MG ENTERIC TAB PO SCH (08:27)
[2020-07-17] MEDS: metroNIDAZOLE (FLAGYL) 500MG TABLET PO SCH ×3 (08:27→21:41)
[2020-07-17] MEDS: ENOXAPARIN 40MG/0.4ML SYRINGE (J1650 PER 10MG) SC SCH (08:27)
[2020-07-17] MEDS: MELOXICAM (MOBIC) 7.5 MG TAB PO SCH (08:27)
[2020-07-17] MEDS: GABAPENTIN 300 MG CAP PO SCH ×3 (08:27→21:41)
[2020-07-17] MEDS: SANTYL OINT 30GM TOP SCH (08:28)
[2020-07-17 10:28] LABS: VANCOMYCIN RANDOM 22.3 UG/ML
[2020-07-17] MEDS ORDERED: VANCOMYCIN INTERMITTENT/PULSE DOSING BY CLINICAL PHARMACIST PER DOSING PROTOCOL XX SCH (11:30)
[2020-07-17] MEDS ORDERED: ONDANSETRON 4MG/2ML VIAL As Ordered ONE (11:38)
[2020-07-17] MEDS ORDERED: dexameTHASONE 4 MG/ML 1ML VIAL (J1100 PER 1MG) As Ordered ONE ×2 (11:38→14:37)
[2020-07-17] MEDS ORDERED: LIDOCAINE 2% 100MG/5ML SDV (FOR ANES.) As Ordered ONE (11:38)
[2020-07-17] MEDS ORDERED: fentaNYL 250 MCG/5 ML INJECTION (J3010) As Ordered ONE (11:38)
[2020-07-17] MEDS ORDERED: propofoL 200 MG/20 ML VIAL As Ordered ONE (11:38)
[2020-07-17] MEDS ORDERED: MIDAZOLAM INJ 2MG/2ML VIAL (J2250 PER 1MG) As Ordered ONE (11:39)
[2020-07-17] MEDS ORDERED: BACITRACIN PWD 50,000 UNITS VIAL As Ordered ONE (13:25)
--- NOTE | 2020-07-17 14:00 | IPNPDOC ---
Subjective General Date Seen: Jul 17, 2020 Subject Chief Complaint/History The patient is a 64-year-old female admitted with a reason for visit of Acute Hypoxemic Respiratory Failure. Patient is feeling a little better today. Sacral and bilateral ischial wounds as before. WBC improving. Current Medications Current Medications Current Medications Medications (Trade) Dose Ordered Sig/Yonatan Route PRN Reason Start Time Stop Time Status Last Admin Dose Admin Acetaminophen/ Hydrocodone Bitart (Anexsia, [place] 7.5mg/325mg) 1 tab Q6HP PRN PO SEVERE PAIN (PS 8-10) 07/13/20 22:15 07/17/20 06:05 Acetaminophen/ Hydrocodone Bitart ([place], Anexsia 5/325) 1 tab Q6HP PRN PO MILD/MODERATE PAIN (PS 1-7) 07/13/20 22:15 07/16/20 04:24 Aspirin (Ecotrin) 81 mg DAILY PO 07/14/20 09:00 07/16/20 08:59 Atorvastatin Calcium (Lipitor) 40 mg QHS PO 07/13/20 21:00 07/16/20 20:45 Bisacodyl (Dulcolax Tab) 10 mg DAILY PO 07/14/20 09:00 07/17/20 08:27 Buprenorphine/ Naloxone (Suboxone 8/2mg) 0.5 tab BID SL 07/13/20 21:00 07/13/20 22:30 DC 07/13/20 20:46 Cefepime HCl 1 gm/ Dextrose 50 ml @ 100 mls/hr Q12H IV 07/14/20 06:00 07/17/20 06:04 Collagenase (SantyL) apply to wounds on back... DAILY TOP 07/16/20 09:00 07/17/20 08:28 Cyanocobalamin (Vitamin B12) 250 mcg DAILY PO 07/14/20 09:00 07/17/20 08:26 Duloxetine HCl (Cymbalta) 60 mg QHS PO 07/13/20 21:00 07/16/20 20:45 Enoxaparin Sodium (Lovenox) 40 mg DAILY SC 07/14/20 09:00 07/16/20 08:59 Ferrous Gluconate (Fergon) 324 mg QHS PO 07/13/20 21:00 07/16/20 20:44 Folic Acid (Folic Acid) 1 mg DAILY PO 07/14/20 09:00 07/17/20 08:27 Furosemide (Lasix) 40 mg DAILY PO 07/14/20 09:00 07/13/20 23:47 DC Gabapentin (Neurontin) 900 mg TID PO 07/13/20 21:00 07/17/20 08:27 Home Med (Med Rec Complete!) ASDIRECTED XX 07/13/20 18:30 07/13/20 18:23 DC Levothyroxine Sodium (Synthroid) 50 mcg DAILY@0600 PO 07/14/20 06:00 07/17/20 06:04 Meloxicam (Mobic) 7.5 mg DAILY PO 07/14/20 09:00 07/16/20 08:59 Methocarbamol (Robaxin) 500 mg QID PRN PO MUSCLE SPASMS 07/13/20 21:00 Metoclopramide HCl (Reglan) 5 mg BID PO 07/13/20 21:00 07/17/20 08:27 Metronidazole (Flagyl) 500 mg TID PO 07/15/20 09:00 07/17/20 08:27 Non-Formulary Medication ( See Comment Field Below ) VANCO INTERMIT. DOSING ASDIRECTED XX 07/17/20 11:30 Ondansetron HCl (Zofran) 4 mg TID PRN PO NAUSEA 07/13/20 18:45 Ramelteon (Rozerem) 8 mg QHS PRN PO INSOMNIA 07/13/20 21:00 07/15/20 21:29 Senna/Docusate Sodium (Senokot S) 2 tab BID PO 07/13/20 21:00 07/17/20 08:26 Sodium Chloride (Saline Lock Flush) 2 ml ASDIRECTED PRN IV SEE LABEL COMMENTS 07/15/20 11:30 Sodium Chloride (Saline Lock Flush) 2 ml SLF IV 07/15/20 14:00 07/17/20 06:10 Vancomycin HCl 1000 mg/IV Miscellaneous Supplies 1 each/ Dextrose 270 ml @ 270 mls/hr Q12H IV 07/14/20 08:00 07/17/20 11:05 DC 07/17/20 08:13 Vancomycin HCl 1000 mg/IV Miscellaneous Supplies 1 each/ Dextrose 270 ml @ 270 mls/hr Q8H IV 07/14/20 08:00 07/14/20 07:26 DC Allergies Coded Allergies: No Known Allergies (Unverified , 10/15/18) Objective Physical Examination Examination GENERAL APPEARANCE:Patient seen, laying in bed, awake, alert, and oriented. Comfortable, in no acute distress. SKIN: Warm and moist. Sacral and bilateral ischial wounds NECK: Supple, no thyromegaly. No obvious jugular venous distention. LUNGS: Clear to auscultation bilaterally. No wheezing appreciated. HEART: No chest wall abnormalities. Regular rate and rhythm with no murmurs appreciated. EXTREMITIES: No edema identified. No calf tenderness. Vital Signs Vital Signs Date Time Temp Pulse Resp B/P (MAP) Pulse Ox O2 Delivery O2 Flow Rate FiO2 07/17/20 12:00 97.6 72 19 129/61 (83) 94 Trach Collar 5.0 28 I&Os I&O- Last 24 Hours up to 6 AM 07/17/20 06:00 Intake Total 420 ml Output Total 750 ml Balance -330 ml Laboratory Data Labs 24H Laboratory Tests 2 07/16/20 19:10: Vancomycin Level Trough 19.3 07/17/20 06:10: Immature Granulocyte % (Auto) 2.3, Neutrophils (%) (Auto) 70.3H, Lymphocytes (%) (Auto) 11.7L, Monocytes (%) (Auto) 7.3, Eosinophils (%) (Auto) 7.0H, Basophils (%) (Auto) 1.4H, Neutrophils # (Auto) 11.2H, Lymphocytes # (Auto) 1.9, Monocytes # (Auto) 1.2H, Eosinophils # (Auto) 1.1H, Basophils # (Auto) 0.2, Nucleated Red Blood Cells % (auto) 0.0, Anion Gap 6L, Glomerular Filtration Rate > 60.0, Calcium Level 7.4L, Random Vancomycin Level 22.3 CBC/BMP Laboratory Tests 07/17/20 06:10 Microbiology Microbiology 07/13/20 Blood Culture - Preliminary, Resulted No Growth after 72 hours. All specime... 07/13/20 Respiratory Virus Panel (PCR) (PARISA) - Final, Complete 07/13/20 Urine Culture - Final, Complete Klebsiella Pneumoniae 07/13/20 Blood Culture - Final, Complete Staphylococcus Hominis Ssp Krzysztof Impression Sacral wound stage 4, bilateral ischium wound. OR today for irrigation and debridement of sacral and bilateral ischium wounds. Informed consent obtained from patient and over the phone. Risks, benefits and alternatives discussed. Ready to proceed. Plan / VTE VTE Prophylaxis Ordered?: Yes MCKENZIE MULLEN DO Jul 17, 2020 14:00
[2020-07-17] MEDS ORDERED: CEFEPIME 1GM VIAL (MAXIPIME) (J0692 PER 500MG) As Ordered ONE (14:31)
[2020-07-17] MEDS ORDERED: PHENYLephrine 500MCG 5ML (100MCG/ML) SYRINGE As Ordered ONE (14:31)
[2020-07-17] MEDS ORDERED: ESMOLOL INJ 100MG/10ML VIAL As Ordered ONE (15:07)
--- NOTE | 2020-07-17 15:19 | POST-OPPD ---
Postoperative Procedure Note Date Of Procedure: Jul 17, 2020 PREOPERATIVE DIAGNOSIS: Sacral wound stage IV, Bilateral Ischial wounds stage III POSTOPERATIVE DIAGNOSIS: same FINDINGS: Sacral wound 13x14x 3.5cm undermined at 7 o'clock 5 cm. Right ischial wound 10x8cm, Left ischial wound 8x11cm PROCEDURE: Irrigation and debridement of sacral and bilateral ischial wounds. SURGEON: Dr Mullen ANESTHESIA: General SPECIMENS: Debrided tissue, cultures aerobic and anaerobic ESTIMATED BLOOD LOSS: 50cc REPLACED: none DRAINS: none COMPLICATIONS: none POSTOPERATIVE CONDITION: stable MCKENZIE MULLEN DO Jul 17, 2020 15:19
[2020-07-17] MEDS ORDERED: fentaNYL 100 MCG/2 ML INJECTION (J3010) IV PRN (16:30)
[2020-07-17] MEDS ORDERED: ONDANSETRON 4MG/2ML VIAL IV PRN (16:30)
[2020-07-17] MEDS ORDERED: HYDROMORPHONE HCL 0.5 MG/ 0.5 ML SYRINGE (J1170 PER 1) IV PRN (16:30)
[2020-07-17] MEDS ORDERED: oxyCODONE 5MG TAB PO PRN (16:30)
[2020-07-17] MEDS ORDERED: LR 1,000 ML IV SCH (16:30)
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
[2020-07-17] MEDS: ATORVASTATIN 20 MG TAB PO SCH (21:41)
[2020-07-17] MEDS: FERROUS GLUCONATE 324 MG TAB PO SCH (21:41)
[2020-07-17] MEDS: DULoxetine 30 MG CAP (CYMBALTA) PO SCH (21:41)
[2020-07-18] VITALS (7 sets, daily range): BP systolic 105–138; BP diastolic 55–77
[2020-07-18 05:35] LABS: BASO # 0.2 10^3/uL (0.0-0.2); BASO % 1.4 % (0.0-1.0); EOS # 0.5 10^3/uL (0.0-0.5); EOS % 4.2 % (0.0-3.0); HEMATOCRIT 26.9 % (36.0-47.0); HEMOGLOBIN 8.2 g/dl (12.0-15.5); LYMPH # 2.1 10^3/uL (1.5-5.0); MEAN CORPUSCULAR HEMOGLOBIN 24.7 pg (27.0-33.0); MEAN CORPUSCULAR HGB CONC 30.5 g/dl (32.0-36.5); MONO # 1.2 10^3/uL (0.0-0.8); MONO % 9.7 % (2.0-8.0); NEUTROPHILS # 8.1 10^3/uL (1.5-8.5); NEUTROPHILS % 64.4 % (36.0-66.0); PLATELET COUNT, AUTOMATED 621 10^3/uL (150-450); RED BLOOD COUNT 3.32 10^6/uL (4.00-5.40); WHITE BLOOD COUNT 12.5 10^3/uL (4.0-10.0)
[2020-07-18 06:05] LABS: BLOOD UREA NITROGEN 7 MG/DL (7-18); CALCIUM LEVEL 7.3 MG/DL (8.8-10.2); CARBON DIOXIDE LEVEL 31 MEQ/L (21-32); CHLORIDE LEVEL 100 MEQ/L (98-107); CREATININE FOR GFR 0.36 MG/DL (0.55-1.30); GLOMERULAR FILTRATION RATE > 60.0 (>45); GLUCOSE, FASTING 85 MG/DL (70-100); POTASSIUM SERUM 3.6 MEQ/L (3.5-5.1); SODIUM LEVEL 137 MEQ/L (136-145)
[2020-07-18] MEDS: LEVOTHYROXINE 50MCG TABLET (0.05MG) PO SCH (06:05)
[2020-07-18] MEDS: CEFEPIME HCL 1 GM in D5W MINI-BAG PLUS 50 ML IV SCH ×2 (06:06→18:24)
[2020-07-18] MEDS: SLF 3 ML SYR IV SCH ×3 (06:06→23:04)
[2020-07-18] MEDS: ANEXSIA, NORCO 7.5MG/325MG TABLET(HYDROCODONE/APAP) PO PRN ×3 (06:09→20:49)
[2020-07-18] MEDS ORDERED: VANCOMYCIN HCL 1,000 MG, VIAL MATE ADAPTER 1 EACH in D5W 250 ML IV ONE (08:00)
[2020-07-18] MEDS: VANCOMYCIN HCL 750 MG, VIAL MATE ADAPTER 1 EACH in D5W 250 ML IV SCH ×2 (08:48→20:47)
[2020-07-18] MEDS: CYANOCOBALAMIN 250 MCG TABLET PO SCH (08:49)
[2020-07-18] MEDS: GABAPENTIN 300 MG CAP PO SCH ×3 (08:49→20:48)
[2020-07-18] MEDS: ENOXAPARIN 40MG/0.4ML SYRINGE (J1650 PER 10MG) SC SCH (08:49)
[2020-07-18] MEDS: ASPIRIN 81 MG ENTERIC TAB PO SCH (08:49)
[2020-07-18] MEDS: SENOKOT S TAB PO SCH ×2 (08:49→20:47)
[2020-07-18] MEDS: FOLIC ACID 1 MG TAB PO SCH (08:49)
[2020-07-18] MEDS: MELOXICAM (MOBIC) 7.5 MG TAB PO SCH (08:49)
[2020-07-18] MEDS: BISACODYL 5 MG TAB PO SCH (08:49)
[2020-07-18] MEDS: metroNIDAZOLE (FLAGYL) 500MG TABLET PO SCH ×3 (08:49→20:47)
[2020-07-18] MEDS: METOCLOPRAMIDE 5 MG TAB PO SCH ×2 (08:57→20:47)
[2020-07-18] MEDS: SANTYL OINT 30GM TOP SCH (09:00)
--- NOTE | 2020-07-18 10:39 | IPNPDOC ---
Subjective General Date Seen: Jul 18, 2020 Subject Chief Complaint/History The patient is a 64-year-old female admitted with a reason for visit of Acute Hypoxemic Respiratory Failure. Patient status post irrigation and excisional debridement of sacral stage IV wound and bilateral stage III ischial wounds. Patient feeling much better today, she has no pain. Current Medications Current Medications Current Medications Medications (Trade) Dose Ordered Sig/Yonatan Route PRN Reason Start Time Stop Time Status Last Admin Dose Admin Acetaminophen/ Hydrocodone Bitart (Anexsia, [place] 7.5mg/325mg) 1 tab Q6HP PRN PO SEVERE PAIN ([place] 8-10) 07/13/20 22:15 07/18/20 06:09 Acetaminophen/ Hydrocodone Bitart ([place], Anexsia 5/325) 1 tab Q6HP PRN PO MILD/MODERATE PAIN (PS 1-7) 07/13/20 22:15 07/16/20 04:24 Aspirin (Ecotrin) 81 mg DAILY PO 07/14/20 09:00 07/18/20 08:49 Atorvastatin Calcium (Lipitor) 40 mg QHS PO 07/13/20 21:00 07/17/20 21:41 Bisacodyl (Dulcolax Tab) 10 mg DAILY PO 07/14/20 09:00 07/18/20 08:49 Buprenorphine/ Naloxone (Suboxone 8/2mg) 0.5 tab BID SL 07/13/20 21:00 07/13/20 22:30 DC 07/13/20 20:46 Cefepime HCl 1 gm/ Dextrose 50 ml @ 100 mls/hr Q12H IV 07/14/20 06:00 07/18/20 06:06 Collagenase (SantyL) apply to wounds on back... DAILY TOP 07/16/20 09:00 07/17/20 08:28 Cyanocobalamin (Vitamin B12) 250 mcg DAILY PO 07/14/20 09:00 07/18/20 08:49 Duloxetine HCl (Cymbalta) 60 mg QHS PO 07/13/20 21:00 07/17/20 21:41 Enoxaparin Sodium (Lovenox) 40 mg DAILY SC 07/14/20 09:00 07/18/20 08:49 Fentanyl Citrate (Sublimaze) 25 mcg Q5MP PRN IV PAIN LEVEL 5-10 07/17/20 16:30 07/17/20 17:30 DC Ferrous Gluconate (Fergon) 324 mg QHS PO 07/13/20 21:00 07/17/20 21:41 Folic Acid (Folic Acid) 1 mg DAILY PO 07/14/20 09:00 07/18/20 08:49 Furosemide (Lasix) 40 mg DAILY PO 07/14/20 09:00 07/13/20 23:47 DC Gabapentin (Neurontin) 900 mg TID PO 07/13/20 21:00 07/18/20 08:49 Home Med (Med Rec Complete!) ASDIRECTED XX 07/13/20 18:30 07/13/20 18:23 DC Hydromorphone HCl (Dilaudid) 0.2 mg Q5MP PRN IV PAIN LEVEL 4-7 07/17/20 16:30 07/17/20 17:30 DC Lactated Ringer's 1,000 ml @ 100 mls/hr Q10H IV 07/17/20 16:30 07/17/20 17:30 DC Levothyroxine Sodium (Synthroid) 50 mcg DAILY@0600 PO 07/14/20 06:00 07/18/20 06:05 Meloxicam (Mobic) 7.5 mg DAILY PO 07/14/20 09:00 07/18/20 08:49 Methocarbamol (Robaxin) 500 mg QID PRN PO MUSCLE SPASMS 07/13/20 21:00 Metoclopramide HCl (Reglan) 5 mg BID PO 07/13/20 21:00 07/18/20 08:57 Metronidazole (Flagyl) 500 mg TID PO 07/15/20 09:00 07/18/20 08:49 Non-Formulary Medication ( See Comment Field Below ) VANCO INTERMIT. DOSING ASDIRECTED XX 07/17/20 11:30 07/18/20 09:02 DC Ondansetron HCl (ZOFRAN INJection) 4 mg Q4HP PRN IV NAUSEA OR VOMITING 07/17/20 16:30 07/17/20 17:30 DC Ondansetron HCl (Zofran) 4 mg TID PRN PO NAUSEA 07/13/20 18:45 Oxycodone HCl (Roxicodone, Oxyir) 5 mg ASDIRECTED PRN PO PAIN LEVEL 1-4 07/17/20 16:30 07/17/20 17:30 DC Ramelteon (Rozerem) 8 mg QHS PRN PO INSOMNIA 07/13/20 21:00 07/15/20 21:29 Senna/Docusate Sodium (Senokot S) 2 tab BID PO 07/13/20 21:00 07/18/20 08:49 Sodium Chloride (Saline Lock Flush) 2 ml ASDIRECTED PRN IV SEE LABEL COMMENTS 07/15/20 11:30 Sodium Chloride (Saline Lock Flush) 2 ml SLF IV 07/15/20 14:00 07/18/20 06:06 Vancomycin HCl 750 mg/IV Miscellaneous Supplies 1 each/ Dextrose 275 ml @ 275 mls/hr Q12H IV 07/18/20 08:00 07/18/20 08:48 Vancomycin HCl 1000 mg/IV Miscellaneous Supplies 1 each/ Dextrose 270 ml @ 270 mls/hr Q12H IV 07/14/20 08:00 07/17/20 11:05 DC 07/17/20 08:13 Vancomycin HCl 1000 mg/IV Miscellaneous Supplies 1 each/ Dextrose 270 ml @ 270 mls/hr Q8H IV 07/14/20 08:00 07/14/20 07:26 DC Allergies Coded Allergies: No Known Allergies (Unverified , 10/15/18) Objective Physical Examination Examination GENERAL APPEARANCE:Patient seen, laying in bed, awake, alert, and oriented. Comfortable, in no acute distress. SKIN: Warm and moist. Dressings intact on all wounds. LUNGS: Clear to auscultation bilaterally. No wheezing appreciated. HEART: No chest wall abnormalities. Regular rate and rhythm with no murmurs appreciated. EXTREMITIES: No edema identified. No calf tenderness. Vital Signs Vital Signs Date Time Temp Pulse Resp B/P (MAP) Pulse Ox O2 Delivery O2 Flow Rate FiO2 07/18/20 08:00 96.6 100 19 107/59 (75) 96 Trach Collar 5.0 28 I&Os I&O- Last 24 Hours up to 6 AM 07/18/20 05:59 Intake Total 960 ml Output Total 1350 ml Balance -390 ml Laboratory Data Labs 24H Laboratory Tests 2 07/18/20 05:23: Immature Granulocyte % (Auto) 3.3H, Neutrophils (%) (Auto) 64.4, Lymphocytes (%) (Auto) 17.0L, Monocytes (%) (Auto) 9.7H, Eosinophils (%) (Auto) 4.2H, Basophils (%) (Auto) 1.4H, Neutrophils # (Auto) 8.1, Lymphocytes # (Auto) 2.1, Monocytes # (Auto) 1.2H, Eosinophils # (Auto) 0.5, Basophils # (Auto) 0.2, Nucleated Red Blood Cells % (auto) 0.0, Anion Gap 6L, Glomerular Filtration Rate > 60.0, Calcium Level 7.3L, Random Vancomycin Level 16.0 CBC/BMP Laboratory Tests 07/18/20 05:23 Microbiology Microbiology 07/17/20 Anaerobic Culture, Received Pending 07/17/20 Wound Culture, Received Pending 07/13/20 Blood Culture - Preliminary, Resulted No Growth after 72 hours. All specime... 07/13/20 Respiratory Virus Panel (PCR) (PARISA) - Final, Complete 07/13/20 Urine Culture - Final, Complete Klebsiella Pneumoniae 07/13/20 Blood Culture - Final, Complete Staphylococcus Hominis Ssp Krzysztof Impression Status post debridement of sacral stage IV wound and bilateral stage III ischial wounds. Patient is feeling well, pain controlled. Plan to remove the packing tomorrow. Continue with current antibiotics. Plan / VTE VTE Prophylaxis Ordered?: Yes MCKENZIE MULLEN DO Jul 18, 2020 10:39
--- NOTE | 2020-07-18 10:50 | ROOPDOC ---
[facility] Report Of Operation Report of Operation Date Of Procedure: Jul 17, 2020 PREOPERATIVE DIAGNOSIS: Sacral wound stage IV, Bilateral Ischial wounds stage III POSTOPERATIVE DIAGNOSIS: same FINDINGS: Sacral wound 13x14x 3.5cm undermined at 7 o'clock 5 cm. Right ischial wound 10x8cm, Left ischial wound 8x11cm PROCEDURE: Irrigation and debridement of sacral and bilateral ischial wounds. SURGEON: Dr Mullen ANESTHESIA: General SPECIMENS: Debrided tissue, cultures aerobic and anaerobic ESTIMATED BLOOD LOSS: 50cc REPLACED: none DRAINS: none COMPLICATIONS: none POSTOPERATIVE CONDITION: stable Procedure: This is a 64-year-old female who has chronic sacral stage IV wound as well as newly developed ischial wounds stage III bilaterally. Patient has left if she'll wound with significant with necrosis with odor. Patient is scheduled to have excisional debridement of all wounds with irrigation. Risks benefits and alternatives discussed with the patient and her over the telephone. Informed consent was obtained from the patient and over the telephone. Patient brought into the operating room, general anesthesia induced on the hospital bed and then patient was placed in the prone position on operating room table with all bony prominences protected. It is of note patient has a tracheostomy and colostomy. Patient is prepped and draped in the usual sterile fashion. Sacral wound measures 13 x 14 x3.5 cm, undermining at 7o'clock 5 cm. issue wounds on left measures 8 x 11 cm without identifying depth due to black eschar, right ischial wounds combination of several openings total 10 x 8 cm cluster. We started our excisional debridement was sacral wound. Debridement done until the muscle layer cultures sent as well as debrided tissue specimen to pathology. Then we turned our attention to the left issue wound or black eschar was removed until the cleared fresh bleeding tissue identified. Depth is until subcutaneous tissue and muscle layer encountered. Then returning attention to the right side where excisional debridement was also done until subcutaneous layer. Hemostasis obtained using electrocautery on all wounds. Then we used 3 L of bacitracin irrigation with power electrical equipment technician to irrigate all the wounds. All wounds packed with Kerlix soaked in Betadine saline and bacitracin. Patient tolerated procedure well, turned in supine position. She was transferred to recovery room in stable condition awake. MCKENZIE MULLEN DO Jul 18, 2020 10:50
[2020-07-18] MEDS ORDERED: MORPHINE 4 MG/ML 1ML VIAL/SYRINGE (J2270) IV ONE (13:15)
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
[2020-07-18] MEDS: DULoxetine 30 MG CAP (CYMBALTA) PO SCH (20:47)
[2020-07-18] MEDS: FERROUS GLUCONATE 324 MG TAB PO SCH (20:48)
[2020-07-18] MEDS: ATORVASTATIN 20 MG TAB PO SCH (20:48)
[2020-07-19] MEDS: methocarbamoL 500 MG TAB PO PRN ×3 (02:14→22:21)
[2020-07-19] MEDS: LEVOTHYROXINE 50MCG TABLET (0.05MG) PO SCH (05:47)
[2020-07-19] MEDS: CEFEPIME HCL 1 GM in D5W MINI-BAG PLUS 50 ML IV SCH ×2 (05:47→18:25)
[2020-07-19] MEDS: ANEXSIA, NORCO 7.5MG/325MG TABLET(HYDROCODONE/APAP) PO PRN (05:48)
[2020-07-19 06:00] VITALS: BP 127/70
[2020-07-19] MEDS: SLF 3 ML SYR IV SCH ×3 (06:45→20:35)
[2020-07-19 07:19] LABS: BASO # 0.2 10^3/uL (0.0-0.2); BASO % 1.9 % (0.0-1.0); EOS # 1.2 10^3/uL (0.0-0.5); EOS % 9.7 % (0.0-3.0); HEMATOCRIT 26.7 % (36.0-47.0); HEMOGLOBIN 7.9 g/dl (12.0-15.5); LYMPH # 2.1 10^3/uL (1.5-5.0); LYMPH % 16.6 % (24.0-44.0); MEAN CORPUSCULAR HGB CONC 29.6 g/dl (32.0-36.5); MEAN CORPUSCULAR VOLUME 81.2 fl (80.0-96.0); MONO # 1.5 10^3/uL (0.0-0.8); MONO % 11.5 % (2.0-8.0); NEUTROPHILS # 7.2 10^3/uL (1.5-8.5); NEUTROPHILS % 56.7 % (36.0-66.0); PLATELET COUNT, AUTOMATED 613 10^3/uL (150-450); RED BLOOD COUNT 3.29 10^6/uL (4.00-5.40); WHITE BLOOD COUNT 12.6 10^3/uL (4.0-10.0)
[2020-07-19 07:48] LABS: BLOOD UREA NITROGEN 6 MG/DL (7-18); CALCIUM LEVEL 7.3 MG/DL (8.8-10.2); CARBON DIOXIDE LEVEL 28 MEQ/L (21-32); CHLORIDE LEVEL 101 MEQ/L (98-107); CREATININE FOR GFR 0.34 MG/DL (0.55-1.30); GLOMERULAR FILTRATION RATE > 60.0 (>45); GLUCOSE, FASTING 94 MG/DL (70-100); POTASSIUM SERUM 3.8 MEQ/L (3.5-5.1); SODIUM LEVEL 137 MEQ/L (136-145); VANCOMYCIN LEVEL TROUGH 16.9 UG/ML (10.0-20.0)
[2020-07-19] MEDS: VANCOMYCIN HCL 750 MG, VIAL MATE ADAPTER 1 EACH in D5W 250 ML IV SCH ×2 (08:33→20:32)
[2020-07-19] MEDS: FOLIC ACID 1 MG TAB PO SCH (10:48)
[2020-07-19] MEDS: METOCLOPRAMIDE 5 MG TAB PO SCH ×2 (10:50→20:34)
[2020-07-19] MEDS: BISACODYL 5 MG TAB PO SCH (10:55)
[2020-07-19] MEDS: GABAPENTIN 300 MG CAP PO SCH ×3 (10:56→20:34)
[2020-07-19] MEDS: CYANOCOBALAMIN 250 MCG TABLET PO SCH (10:58)
[2020-07-19] MEDS: metroNIDAZOLE (FLAGYL) 500MG TABLET PO SCH ×3 (10:59→20:33)
[2020-07-19] MEDS: SENOKOT S TAB PO SCH ×2 (11:00→20:34)
[2020-07-19] MEDS: ASPIRIN 81 MG ENTERIC TAB PO SCH (11:01)
[2020-07-19] MEDS: ENOXAPARIN 40MG/0.4ML SYRINGE (J1650 PER 10MG) SC SCH (11:05)
[2020-07-19 11:30] VITALS: BP 131/73
[2020-07-19] MEDS: MELOXICAM (MOBIC) 7.5 MG TAB PO SCH (11:40)
[2020-07-19] MEDS: BUPRENORPHINE/NALOXONE 8-2MG SUBLINGUAL TABLET(SUBOXONE) SL SCH (11:41)
[2020-07-19 14:00] VITALS: BP 126/71
[2020-07-19] MEDS: SANTYL OINT 30GM TOP SCH (15:51)
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
[2020-07-19] MEDS: RAMELTEON 8 MG TAB (ROZEREM) PO PRN (20:33)
[2020-07-19] MEDS: ACETAMINOPHEN TAB 650MG DOSE (2X325MG) PO PRN (20:33)
[2020-07-19] MEDS: ATORVASTATIN 20 MG TAB PO SCH (20:34)
[2020-07-19] MEDS: FERROUS GLUCONATE 324 MG TAB PO SCH (20:34)
[2020-07-19] MEDS: DULoxetine 30 MG CAP (CYMBALTA) PO SCH (20:34)
[2020-07-19 22:00] VITALS: BP 143/82
--- NOTE | 2020-07-19 22:11 | IPNPDOC ---
Subjective General Date Seen: Jul 19, 2020 Subject Chief Complaint/History The patient is a 64-year-old female admitted with a reason for visit of Acute Hypoxemic Respiratory Failure. Patient is s/p surgical debridement stage 4 sacral wound, stage 3 ischium bilateral wounds. Doing well today. Pain controlled. No bleeding. Tolerating diet. Current Medications Current Medications Current Medications Medications (Trade) Dose Ordered Sig/Yonatan Route PRN Reason Start Time Stop Time Status Last Admin Dose Admin Acetaminophen (Tylenol Tab) 650 mg Q6HP PRN PO PAIN / FEVER 07/19/20 11:00 07/19/20 20:33 Acetaminophen/ Hydrocodone Bitart (Anexsia, Circle 7.5mg/325mg) 1 tab Q6HP PRN PO SEVERE PAIN (PS 8-10) 07/13/20 22:15 07/19/20 10:58 DC 07/19/20 05:48 Acetaminophen/ Hydrocodone Bitart (Circle, Anexsia 5/325) 1 tab Q6HP PRN PO MILD/MODERATE PAIN (PS 1-7) 07/13/20 22:15 07/19/20 10:58 DC 07/16/20 04:24 Aspirin (Ecotrin) 81 mg DAILY PO 07/14/20 09:00 07/19/20 11:01 Atorvastatin Calcium (Lipitor) 40 mg QHS PO 07/13/20 21:00 07/19/20 20:34 Bisacodyl (Dulcolax Tab) 10 mg DAILY PO 07/14/20 09:00 07/19/20 10:55 Buprenorphine/ Naloxone (Suboxone 8/2mg) 0.5 tab BID SL 07/13/20 21:00 07/13/20 22:30 DC 07/13/20 20:46 Buprenorphine/ Naloxone (Suboxone 8/2mg) 1 tab DAILY SL 07/19/20 11:00 07/19/20 11:41 Cefepime HCl 1 gm/ Dextrose 50 ml @ 100 mls/hr Q12H IV 07/14/20 06:00 07/19/20 18:25 Collagenase (SantyL) apply to wounds on back... DAILY TOP 07/16/20 09:00 07/18/20 09:00 Cyanocobalamin (Vitamin B12) 250 mcg DAILY PO 07/14/20 09:00 07/19/20 10:58 Duloxetine HCl (Cymbalta) 60 mg QHS PO 07/13/20 21:00 07/19/20 20:34 Enoxaparin Sodium (Lovenox) 40 mg DAILY SC 07/14/20 09:00 07/19/20 11:05 Fentanyl Citrate (Sublimaze) 25 mcg Q5MP PRN IV PAIN LEVEL 5-10 07/17/20 16:30 07/17/20 17:30 DC Ferrous Gluconate (Fergon) 324 mg QHS PO 07/13/20 21:00 07/19/20 20:34 Folic Acid (Folic Acid) 1 mg DAILY PO 07/14/20 09:00 07/19/20 10:48 Furosemide (Lasix) 40 mg DAILY PO 07/14/20 09:00 07/13/20 23:47 DC Gabapentin (Neurontin) 900 mg TID PO 07/13/20 21:00 07/19/20 20:34 Home Med (Med Rec Complete!) ASDIRECTED XX 07/13/20 18:30 07/13/20 18:23 DC Hydromorphone HCl (Dilaudid) 0.2 mg Q5MP PRN IV PAIN LEVEL 4-7 07/17/20 16:30 07/17/20 17:30 DC Lactated Ringer's 1,000 ml @ 100 mls/hr Q10H IV 07/17/20 16:30 07/17/20 17:30 DC Levothyroxine Sodium (Synthroid) 50 mcg DAILY@0600 PO 07/14/20 06:00 07/19/20 05:47 Meloxicam (Mobic) 7.5 mg DAILY PO 07/14/20 09:00 07/19/20 11:40 Methocarbamol (Robaxin) 500 mg QID PRN PO MUSCLE SPASMS 07/13/20 21:00 07/19/20 15:48 Metoclopramide HCl (Reglan) 5 mg BID PO 07/13/20 21:00 07/19/20 20:34 Metronidazole (Flagyl) 500 mg TID PO 07/15/20 09:00 07/19/20 20:33 Non-Formulary Medication ( See Comment Field Below ) VANCO INTERMIT. DOSING ASDIRECTED XX 07/17/20 11:30 07/18/20 09:02 DC Ondansetron HCl (ZOFRAN INJection) 4 mg Q4HP PRN IV NAUSEA OR VOMITING 07/17/20 16:30 07/17/20 17:30 DC Ondansetron HCl (Zofran) 4 mg TID PRN PO NAUSEA 07/13/20 18:45 Oxycodone HCl (Roxicodone, Oxyir) 5 mg ASDIRECTED PRN PO PAIN LEVEL 1-4 07/17/20 16:30 07/17/20 17:30 DC Ramelteon (Rozerem) 8 mg QHS PRN PO INSOMNIA 07/13/20 21:00 07/19/20 20:33 Senna/Docusate Sodium (Senokot S) 2 tab BID PO 07/13/20 21:00 07/19/20 20:34 Sodium Chloride (Saline Lock Flush) 2 ml ASDIRECTED PRN IV SEE LABEL COMMENTS 07/15/20 11:30 Sodium Chloride (Saline Lock Flush) 2 ml SLF IV 07/15/20 14:00 07/19/20 20:35 Vancomycin HCl 750 mg/IV Miscellaneous Supplies 1 each/ Dextrose 275 ml @ 275 mls/hr Q12H IV 07/18/20 08:00 07/19/20 20:32 Vancomycin HCl 1000 mg/IV Miscellaneous Supplies 1 each/ Dextrose 270 ml @ 270 mls/hr Q12H IV 07/14/20 08:00 07/17/20 11:05 DC 07/17/20 08:13 Vancomycin HCl 1000 mg/IV Miscellaneous Supplies 1 each/ Dextrose 270 ml @ 270 mls/hr Q8H IV 07/14/20 08:00 07/14/20 07:26 DC Allergies Coded Allergies: No Known Allergies (Unverified , 10/15/18) Objective Physical Examination Examination GENERAL APPEARANCE:Patient seen, laying in bed, awake, alert, and oriented. Comfortable, in no acute distress. SKIN: Warm and moist. Sacral wound stage 4 clean granulating tissue. Bilateral ischium clean stage 3 wounds, clusters. Clean granulating tissue. LUNGS: Clear to auscultation bilaterally. No wheezing appreciated. HEART: No chest wall abnormalities. Regular rate and rhythm with no murmurs appreciated. EXTREMITIES: No edema identified. No calf tenderness. Vital Signs Vital Signs Date Time Temp Pulse Resp B/P (MAP) Pulse Ox O2 Delivery O2 Flow Rate FiO2 07/19/20 14:00 98.1 100 17 126/71 (89) 92 Trach Collar 5.0 07/19/20 11:30 28 I&Os I&O- Last 24 Hours up to 6 AM 07/19/20 05:59 Intake Total 1085 ml Output Total 950 ml Balance 135 ml Laboratory Data Labs 24H Laboratory Tests 2 07/19/20 07:05: Immature Granulocyte % (Auto) 3.6H, Neutrophils (%) (Auto) 56.7, Lymphocytes (%) (Auto) 16.6L, Monocytes (%) (Auto) 11.5H, Eosinophils (%) (Auto) 9.7H, Basophils (%) (Auto) 1.9H, Neutrophils # (Auto) 7.2, Lymphocytes # (Auto) 2.1, Monocytes # (Auto) 1.5H, Eosinophils # (Auto) 1.2H, Basophils # (Auto) 0.2, Nucleated Red Blood Cells % (auto) 0.0, Anion Gap 8, Glomerular Filtration Rate > 60.0, Calcium Level 7.3L, Vancomycin Level Trough 16.9 CBC/BMP Laboratory Tests 07/19/20 07:05 Microbiology Microbiology 07/17/20 Anaerobic Culture, Received Pending 07/17/20 Wound Culture, Received Pending 07/13/20 Blood Culture - Final, Complete NO GROWTH AFTER 5 DAYS 07/13/20 Respiratory Virus Panel (PCR) (PARISA) - Final, Complete 07/13/20 Urine Culture - Final, Complete Klebsiella Pneumoniae 07/13/20 Blood Culture - Final, Complete Staphylococcus Hominis Ssp Krzysztof Impression Dressings removed. D/c Betadine packing. Hydrofera blue, covered with foam dressing daily. Continue with antibiotics. Wounds are improving. WBC decreasing. Will follow Plan / VTE VTE Prophylaxis Ordered?: Yes MCKENZIE MULLEN DO Jul 19, 2020 22:11
[2020-07-20] MEDS: methocarbamoL 500 MG TAB PO PRN ×2 (04:33→18:05)
[2020-07-20] MEDS: ACETAMINOPHEN TAB 650MG DOSE (2X325MG) PO PRN ×3 (04:34→22:40)
[2020-07-20 06:00] VITALS: BP 130/74
[2020-07-20] MEDS: LEVOTHYROXINE 50MCG TABLET (0.05MG) PO SCH (06:30)
[2020-07-20] MEDS: CEFEPIME HCL 1 GM in D5W MINI-BAG PLUS 50 ML IV SCH ×2 (06:30→18:05)
[2020-07-20] MEDS: SLF 3 ML SYR IV SCH ×3 (06:30→20:22)
[2020-07-20 07:32] LABS: HEMATOCRIT 27.5 % (36.0-47.0); HEMOGLOBIN 8.1 g/dl (12.0-15.5); MEAN CORPUSCULAR HEMOGLOBIN 23.7 pg (27.0-33.0); MEAN CORPUSCULAR HGB CONC 29.5 g/dl (32.0-36.5); MEAN CORPUSCULAR VOLUME 80.4 fl (80.0-96.0); PLATELET COUNT, AUTOMATED 586 10^3/uL (150-450); RED BLOOD COUNT 3.42 10^6/uL (4.00-5.40); WHITE BLOOD COUNT 12.1 10^3/uL (4.0-10.0)
[2020-07-20 08:06] LABS: ANISOCYTOSIS 2+; ATYPICAL LYMPH 1 % (0-5); BASOPHILS 2 % (0-1); EOSINOPHILS 8 % (0-3); HYPOCHROMASIA 2+; LYMPHOCYTES 20 % (16-44); METAMYELOCYTES 1 % (0-0); MONOCYTES 10 % (0-5); NEUTROPHILS 57 % (28-66); PLATELET ESTIMATE INCREASED (NORMAL)
[2020-07-20 08:14] LABS: BLOOD UREA NITROGEN 6 MG/DL (7-18); CALCIUM LEVEL 7.5 MG/DL (8.8-10.2); CARBON DIOXIDE LEVEL 32 MEQ/L (21-32); CHLORIDE LEVEL 101 MEQ/L (98-107); CREATININE FOR GFR 0.31 MG/DL (0.55-1.30); GLOMERULAR FILTRATION RATE > 60.0 (>45); GLUCOSE, FASTING 98 MG/DL (70-100); POTASSIUM SERUM 3.5 MEQ/L (3.5-5.1); SODIUM LEVEL 137 MEQ/L (136-145); VANCOMYCIN LEVEL TROUGH 16.7 UG/ML (10.0-20.0)
[2020-07-20] MEDS: FAMOTIDINE 20 MG TAB PO SCH ×2 (09:00→20:22)
[2020-07-20] MEDS: MELOXICAM (MOBIC) 7.5 MG TAB PO SCH (09:05)
[2020-07-20] MEDS: METOCLOPRAMIDE 5 MG TAB PO SCH ×2 (09:05→20:21)
[2020-07-20] MEDS: SENOKOT S TAB PO SCH ×2 (09:05→20:22)
[2020-07-20] MEDS: BISACODYL 5 MG TAB PO SCH (09:05)
[2020-07-20] MEDS: VANCOMYCIN HCL 750 MG, VIAL MATE ADAPTER 1 EACH in D5W 250 ML IV SCH ×2 (09:05→20:24)
[2020-07-20] MEDS: GABAPENTIN 300 MG CAP PO SCH ×3 (09:06→20:21)
[2020-07-20] MEDS: CYANOCOBALAMIN 250 MCG TABLET PO SCH (09:06)
[2020-07-20] MEDS: ASPIRIN 81 MG ENTERIC TAB PO SCH (09:06)
[2020-07-20] MEDS: ENOXAPARIN 40MG/0.4ML SYRINGE (J1650 PER 10MG) SC SCH (09:06)
[2020-07-20] MEDS: metroNIDAZOLE (FLAGYL) 500MG TABLET PO SCH ×3 (09:06→20:21)
[2020-07-20] MEDS: FOLIC ACID 1 MG TAB PO SCH (09:06)
[2020-07-20] MEDS: BUPRENORPHINE/NALOXONE 8-2MG SUBLINGUAL TABLET(SUBOXONE) SL SCH (09:06)
[2020-07-20] MEDS: SANTYL OINT 30GM TOP SCH (09:07)
[2020-07-20] MEDS: ONDANSETRON 4 MG TAB PO PRN ×2 (09:21→18:47)
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
[2020-07-20 14:00] VITALS: BP 121/75
[2020-07-20] MEDS: BUPRENORPHINE/NALOXONE 2-0.5MG SUBLINGUAL TABLET(SUBOXONE) SL SCH ×2 (16:08→20:22)
[2020-07-20] MEDS: FERROUS GLUCONATE 324 MG TAB PO SCH (20:21)
[2020-07-20] MEDS: RAMELTEON 8 MG TAB (ROZEREM) PO PRN (20:22)
[2020-07-20] MEDS: DULoxetine 30 MG CAP (CYMBALTA) PO SCH (20:22)
[2020-07-20] MEDS: ATORVASTATIN 20 MG TAB PO SCH (20:22)
[2020-07-20 22:00] VITALS: BP 154/81
[2020-07-21] MEDS: SLF 3 ML SYR IV SCH ×3 (05:14→20:20)
[2020-07-21] MEDS: CEFEPIME HCL 1 GM in D5W MINI-BAG PLUS 50 ML IV SCH ×2 (05:14→18:29)
[2020-07-21] MEDS: LEVOTHYROXINE 50MCG TABLET (0.05MG) PO SCH (05:14)
[2020-07-21] MEDS: ACETAMINOPHEN TAB 650MG DOSE (2X325MG) PO PRN (05:18)
[2020-07-21 05:39] LABS: HEMATOCRIT 31.9 % (36.0-47.0); HEMOGLOBIN 9.1 g/dl (12.0-15.5); MEAN CORPUSCULAR HEMOGLOBIN 24.3 pg (27.0-33.0); MEAN CORPUSCULAR HGB CONC 28.5 g/dl (32.0-36.5); MEAN CORPUSCULAR VOLUME 85.1 fl (80.0-96.0); PLATELET COUNT, AUTOMATED 489 10^3/uL (150-450); RED BLOOD COUNT 3.75 10^6/uL (4.00-5.40); WHITE BLOOD COUNT 12.2 10^3/uL (4.0-10.0)
[2020-07-21 05:50] LABS: BLOOD UREA NITROGEN 8 MG/DL (7-18); CARBON DIOXIDE LEVEL 28 MEQ/L (21-32); CHLORIDE LEVEL 100 MEQ/L (98-107); CREATININE FOR GFR 0.42 MG/DL (0.55-1.30); GLOMERULAR FILTRATION RATE > 60.0 (>45); GLUCOSE, FASTING 99 MG/DL (70-100); POTASSIUM SERUM 3.7 MEQ/L (3.5-5.1); SODIUM LEVEL 138 MEQ/L (136-145)
[2020-07-21 06:00] VITALS: BP 139/82
[2020-07-21] MEDS: ONDANSETRON 4 MG TAB PO PRN ×2 (07:00→17:15)
[2020-07-21] MEDS: VANCOMYCIN HCL 750 MG, VIAL MATE ADAPTER 1 EACH in D5W 250 ML IV SCH ×2 (09:02→20:16)
[2020-07-21] MEDS: BISACODYL 5 MG TAB PO SCH (09:02)
[2020-07-21] MEDS: ENOXAPARIN 40MG/0.4ML SYRINGE (J1650 PER 10MG) SC SCH (09:02)
[2020-07-21] MEDS: METOCLOPRAMIDE 5 MG TAB PO SCH ×2 (09:02→20:18)
[2020-07-21] MEDS: CYANOCOBALAMIN 250 MCG TABLET PO SCH (09:03)
[2020-07-21] MEDS: SENOKOT S TAB PO SCH ×2 (09:03→20:17)
[2020-07-21] MEDS: BUPRENORPHINE/NALOXONE 2-0.5MG SUBLINGUAL TABLET(SUBOXONE) SL SCH ×3 (09:03→20:17)
[2020-07-21] MEDS: metroNIDAZOLE (FLAGYL) 500MG TABLET PO SCH ×3 (09:03→20:16)
[2020-07-21] MEDS: ASPIRIN 81 MG ENTERIC TAB PO SCH (09:03)
[2020-07-21] MEDS: FAMOTIDINE 20 MG TAB PO SCH ×2 (09:03→20:16)
[2020-07-21] MEDS: MELOXICAM (MOBIC) 7.5 MG TAB PO SCH (09:03)
[2020-07-21] MEDS: FOLIC ACID 1 MG TAB PO SCH (09:03)
[2020-07-21] MEDS: methocarbamoL 500 MG TAB PO PRN ×2 (09:03→17:15)
[2020-07-21] MEDS: GABAPENTIN 300 MG CAP PO SCH ×3 (09:03→20:17)
[2020-07-21] MEDS: SANTYL OINT 30GM TOP SCH (09:04)
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
[2020-07-21 14:00] VITALS: BP 137/81
[2020-07-21] MEDS: DULoxetine 30 MG CAP (CYMBALTA) PO SCH (20:18)
[2020-07-21] MEDS: ATORVASTATIN 20 MG TAB PO SCH (20:18)
[2020-07-21] MEDS: FERROUS GLUCONATE 324 MG TAB PO SCH (20:18)
[2020-07-21 22:00] VITALS: BP 130/83
[2020-07-22] MEDS: ONDANSETRON 4 MG TAB PO PRN ×2 (05:41→18:10)
[2020-07-22] MEDS: CEFEPIME HCL 1 GM in D5W MINI-BAG PLUS 50 ML IV SCH ×2 (05:41→18:06)
[2020-07-22] MEDS: LEVOTHYROXINE 50MCG TABLET (0.05MG) PO SCH (05:41)
[2020-07-22] MEDS: SLF 3 ML SYR IV SCH ×3 (05:42→20:24)
[2020-07-22] MEDS: methocarbamoL 500 MG TAB PO PRN ×2 (05:49→11:18)
[2020-07-22 06:00] VITALS: BP 106/60
[2020-07-22] MEDS: VANCOMYCIN HCL 750 MG, VIAL MATE ADAPTER 1 EACH in D5W 250 ML IV SCH ×2 (09:32→20:23)
[2020-07-22] MEDS: BUPRENORPHINE/NALOXONE 2-0.5MG SUBLINGUAL TABLET(SUBOXONE) SL SCH ×3 (09:32→20:24)
[2020-07-22] MEDS: SENOKOT S TAB PO SCH ×2 (11:18→20:23)
[2020-07-22] MEDS: metroNIDAZOLE (FLAGYL) 500MG TABLET PO SCH ×3 (11:18→20:23)
[2020-07-22] MEDS: FOLIC ACID 1 MG TAB PO SCH (11:19)
[2020-07-22] MEDS: METOCLOPRAMIDE 5 MG TAB PO SCH ×2 (11:19→20:23)
[2020-07-22] MEDS: FAMOTIDINE 20 MG TAB PO SCH ×2 (11:19→20:23)
[2020-07-22] MEDS: GABAPENTIN 300 MG CAP PO SCH ×3 (11:19→20:23)
[2020-07-22] MEDS: MELOXICAM (MOBIC) 7.5 MG TAB PO SCH (11:19)
[2020-07-22] MEDS: BISACODYL 5 MG TAB PO SCH (11:19)
[2020-07-22] MEDS: ASPIRIN 81 MG ENTERIC TAB PO SCH (11:19)
[2020-07-22] MEDS: CYANOCOBALAMIN 250 MCG TABLET PO SCH (11:19)
[2020-07-22] MEDS: ENOXAPARIN 40MG/0.4ML SYRINGE (J1650 PER 10MG) SC SCH (11:20)
[2020-07-22] MEDS: SANTYL OINT 30GM TOP SCH (11:20)
[2020-07-22 14:00] VITALS: BP 106/61
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
[2020-07-22] MEDS: FERROUS GLUCONATE 324 MG TAB PO SCH (20:23)
[2020-07-22] MEDS: DULoxetine 30 MG CAP (CYMBALTA) PO SCH (20:24)
[2020-07-22] MEDS: ATORVASTATIN 20 MG TAB PO SCH (20:24)
[2020-07-22 22:00] VITALS: BP 134/88
[2020-07-23] MEDS: ACETAMINOPHEN TAB 650MG DOSE (2X325MG) PO PRN ×2 (00:29→20:12)
[2020-07-23] MEDS: ONDANSETRON 4 MG TAB PO PRN ×2 (05:33→17:44)
[2020-07-23] MEDS: SLF 3 ML SYR IV SCH ×3 (05:34→23:33)
[2020-07-23] MEDS: CEFEPIME HCL 1 GM in D5W MINI-BAG PLUS 50 ML IV SCH (05:34)
[2020-07-23] MEDS: LEVOTHYROXINE 50MCG TABLET (0.05MG) PO SCH (05:34)
[2020-07-23] MEDS: methocarbamoL 500 MG TAB PO PRN ×2 (05:40→16:48)
[2020-07-23 06:00] VITALS: BP 130/69
[2020-07-23 06:17] LABS: HEMATOCRIT 26.8 % (36.0-47.0); HEMOGLOBIN 8.1 g/dl (12.0-15.5); MEAN CORPUSCULAR HEMOGLOBIN 24.8 pg (27.0-33.0); MEAN CORPUSCULAR HGB CONC 30.2 g/dl (32.0-36.5); PLATELET COUNT, AUTOMATED 532 10^3/uL (150-450); RED BLOOD COUNT 3.27 10^6/uL (4.00-5.40); WHITE BLOOD COUNT 11.3 10^3/uL (4.0-10.0)
[2020-07-23 06:39] LABS: BLOOD UREA NITROGEN 6 MG/DL (7-18); CALCIUM LEVEL 7.8 MG/DL (8.8-10.2); CARBON DIOXIDE LEVEL 32 MEQ/L (21-32); CHLORIDE LEVEL 101 MEQ/L (98-107); CREATININE FOR GFR 0.32 MG/DL (0.55-1.30); GLOMERULAR FILTRATION RATE > 60.0 (>45); GLUCOSE, FASTING 89 MG/DL (70-100); SODIUM LEVEL 137 MEQ/L (136-145)
[2020-07-23] MEDS: METOCLOPRAMIDE 5 MG TAB PO SCH ×2 (08:24→20:13)
[2020-07-23] MEDS: FAMOTIDINE 20 MG TAB PO SCH ×2 (08:24→20:12)
[2020-07-23] MEDS: ENOXAPARIN 40MG/0.4ML SYRINGE (J1650 PER 10MG) SC SCH (08:24)
[2020-07-23] MEDS: GABAPENTIN 300 MG CAP PO SCH ×3 (08:24→20:12)
[2020-07-23] MEDS: SENOKOT S TAB PO SCH ×2 (08:25→20:12)
[2020-07-23] MEDS: CYANOCOBALAMIN 250 MCG TABLET PO SCH (08:25)
[2020-07-23] MEDS: metroNIDAZOLE (FLAGYL) 500MG TABLET PO SCH (08:25)
[2020-07-23] MEDS: FOLIC ACID 1 MG TAB PO SCH (08:26)
[2020-07-23] MEDS: BISACODYL 5 MG TAB PO SCH (08:26)
[2020-07-23] MEDS: ASPIRIN 81 MG ENTERIC TAB PO SCH (08:26)
[2020-07-23] MEDS: MELOXICAM (MOBIC) 7.5 MG TAB PO SCH (08:26)
[2020-07-23] MEDS: VANCOMYCIN HCL 750 MG, VIAL MATE ADAPTER 1 EACH in D5W 250 ML IV SCH (08:27)
[2020-07-23 08:30] VITALS: BP 130/90
[2020-07-23] MEDS: BUPRENORPHINE/NALOXONE 2-0.5MG SUBLINGUAL TABLET(SUBOXONE) SL SCH ×3 (08:44→20:13)
[2020-07-23] MEDS: SANTYL OINT 30GM TOP SCH (09:00)
[2020-07-23] MEDS ORDERED: MIRALAX *UNIT DOSE* 17GM PACKET PO ONE (09:15)
[2020-07-23] MEDS ORDERED: MIRALAX *UNIT DOSE* 17GM PACKET PO PRN (09:15)
[2020-07-23 09:16] LABS: VANCOMYCIN RANDOM 17.2 UG/ML
[2020-07-23 13:41] VITALS: BP 135/70
[2020-07-23 15:25] LABS: C REACTIVE PROTEIN QUANTITATIV 0.75 MG/DL (0.00-0.30)
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
[2020-07-23] MEDS: PIPERACILLIN/TAZOBACTAM SOD 3.375 GM in D5W MINI-BAG PLUS 50 ML IV SCH ×2 (16:44→23:32)
[2020-07-23] MEDS: ATORVASTATIN 20 MG TAB PO SCH (20:13)
[2020-07-23] MEDS: DULoxetine 30 MG CAP (CYMBALTA) PO SCH (20:13)
[2020-07-23] MEDS: FERROUS GLUCONATE 324 MG TAB PO SCH (20:13)
[2020-07-23 22:00] VITALS: BP 145/85
[2020-07-24] MEDS: VANICREAM MOISTURIZING SKIN CREAM 113GM TUBE TOP SCH ×3 (00:53→21:38)
[2020-07-24] MEDS: ACETAMINOPHEN TAB 650MG DOSE (2X325MG) PO PRN ×3 (04:31→21:37)
[2020-07-24] MEDS: POLYVINYL ALCOHOL OPHTH SOLN 15 ML(LIQUITEARS) OU PRN ×2 (04:31→21:38)
[2020-07-24] MEDS: ONDANSETRON 4 MG TAB PO PRN ×3 (04:43→21:36)
[2020-07-24] MEDS: PIPERACILLIN/TAZOBACTAM SOD 3.375 GM in D5W MINI-BAG PLUS 50 ML IV SCH ×4 (04:43→23:16)
[2020-07-24 06:00] VITALS: BP 129/69
[2020-07-24] MEDS: SLF 3 ML SYR IV SCH ×3 (06:08→22:16)
[2020-07-24] MEDS: LEVOTHYROXINE 50MCG TABLET (0.05MG) PO SCH (06:08)
[2020-07-24] MEDS: methocarbamoL 500 MG TAB PO PRN ×2 (06:08→12:20)
[2020-07-24 07:00] LABS: BASO # 0.2 10^3/uL (0.0-0.2); BASO % 1.6 % (0.0-1.0); EOS % 9.5 % (0.0-3.0); HEMATOCRIT 30.3 % (36.0-47.0); HEMOGLOBIN 8.8 g/dl (12.0-15.5); LYMPH # 2.1 10^3/uL (1.5-5.0); LYMPH % 19.2 % (24.0-44.0); MEAN CORPUSCULAR VOLUME 82.6 fl (80.0-96.0); MONO # 1.3 10^3/uL (0.0-0.8); MONO % 11.5 % (2.0-8.0); NEUTROPHILS # 6.1 10^3/uL (1.5-8.5); NEUTROPHILS % 56.3 % (36.0-66.0); PLATELET COUNT, AUTOMATED 491 10^3/uL (150-450); RED BLOOD COUNT 3.67 10^6/uL (4.00-5.40); WHITE BLOOD COUNT 10.8 10^3/uL (4.0-10.0)
[2020-07-24] MEDS ORDERED: ISOVUE-370 76% 100ML VIAL As Ordered ONE (07:41)
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
[2020-07-24] MEDS: BUPRENORPHINE/NALOXONE 2-0.5MG SUBLINGUAL TABLET(SUBOXONE) SL SCH ×3 (08:47→21:36)
[2020-07-24] MEDS: FOLIC ACID 1 MG TAB PO SCH (08:47)
[2020-07-24] MEDS: SENOKOT S TAB PO SCH ×2 (08:47→21:36)
[2020-07-24] MEDS: GABAPENTIN 300 MG CAP PO SCH ×3 (08:47→21:36)
--- NOTE | 2020-07-24 08:47 | REP ---
INDICATION: sacral decub largeR/O osteomyelitis pelvis. COMPARISON: CT 05/31/2020, portable chest 07/13/2020 TECHNIQUE: Bolus 100 mL Isovue 370 scanning through the abdomen pelvis with coronal and sagittal reconstructions. Bone windows are also reviewed. FINDINGS: CT abdomen: There is elevated right diaphragm again noted with consolidative atelectasis or infiltrate right lower lobe. Small left pleural effusion with some subsegmental atelectatic change. Appears to be some right middle lobe atelectatic change heart size not grossly enlarged. There is no pericardial effusion, hiatal hernia or abnormality the visualized stomach. There is macro megaly with vertical diameter the liver 20 cm in midclavicular line. No splenomegaly, hepatic or splenic focal lesion or biliary dilatation. Gallbladder surgically absent. Adrenal glands are normal. Upper pole cyst in the kidneys on the right with lobation but no hydronephrosis or solid mass. 2 mm nonobstructing stone in the left kidney again seen. Small bowel loops fluid-filled and unremarkable. There is partial colectomy with oversewn Eli's pouch in the deep pelvis and ostomy distally to left of midline in the pelvis.. Moderate retained stool. Scattered diverticulosis without diverticulitis. I see no ascites, perforation or free air. Pancreas with some fatty atrophy but no mass, stone or peripancreatic fluid collection. The aorta has calcifications without aneurysm. No periaortic adenopathy. No mesenteric or other retroperitoneal adenopathy. No infiltration of the mesentery. I see no ascites. The lung windows show no perforation or free air. The bone windows show degenerative disc changes throughout the lumbar spine, greatest at L2-3 with sclerosis of the endplates spurs but with vacuum phenomenon and narrowing at the other levels. No compression fracture. Facet arthropathy in the lower lumbar spine. Visualized ribs intact. CT pelvis: The bone windows show large decubitus ulcer overlying the lower sacrum. There are exposed sacral 4th and 5th segments. There is some loss of superficial cortical bone at those segments may reflect some early osteomyelitis. Coccygeal segments have changed appearance in that there is only 1 segment visible now compared to the previous study. Whether this is from resection or resorption due to osteomyelitis is uncertain. The hips, acetabula, ischia, iliac bones and upper sacrum with SI joints all grossly intact and unchanged. There is inflammatory change at the base of the decubitus ulcer overlying the lower sacrum which abuts the posterior wall of the rectum. No drainable abscess collection. Uterus anteverted not enlarged no pelvic mass. The bladder has a Wood catheter in place with its balloon inflated and a small amount of air within the bladder that may be due to Wood catheter insertion or gas-forming organism. I do not see evidence for colonic fistula to the bladder. Diverticulosis of the sigmoid noted without diverticulitis IMPRESSION: 1. Large decubitus ulcer over the lower sacrum posteriorly and with the posterior cortical bone exposed and some loss of posterior cortical bone there. There is also loss of coccyx bones leaving only 1 small remnant. This may be from surgical procedure not known to me or resorption from osteomyelitis. There is some inflammatory change extending to posterior wall of the rectum. No fluid collection at this time that would suggest drainable abscess. 2. Elevated right diaphragm with some chronic atelectatic change in the right lower lobe and in the right middle lobe. Basilar fibrotic changes. Small left effusion. 3. Hepatomegaly unchanged. Prior cholecystectomy, upper pole cyst of the right kidney and nonobstructing 2 mm calcification left renal pyramid, stable. 4. Prior partial colectomy with colostomy in the pelvis the left of midline and oversewn Eli's pouch. All of this unchanged no ascites, obstruction or other acute finding. <Electronically signed by Karan Tomlin > 07/24/20 [id number]
[2020-07-24] MEDS: METOCLOPRAMIDE 5 MG TAB PO SCH ×2 (08:48→21:36)
[2020-07-24] MEDS: ASPIRIN 81 MG ENTERIC TAB PO SCH (08:48)
[2020-07-24] MEDS: FAMOTIDINE 20 MG TAB PO SCH ×2 (08:48→21:36)
[2020-07-24] MEDS: MELOXICAM (MOBIC) 7.5 MG TAB PO SCH (08:48)
[2020-07-24] MEDS: CYANOCOBALAMIN 250 MCG TABLET PO SCH (08:48)
[2020-07-24] MEDS: ENOXAPARIN 40MG/0.4ML SYRINGE (J1650 PER 10MG) SC SCH (08:48)
[2020-07-24] MEDS: BISACODYL 5 MG TAB PO SCH (08:48)
[2020-07-24 08:54] LABS: ERYTHROCYTE SEDIMENTATION RATE 46 mm/hr (0-30)
[2020-07-24] MEDS: SANTYL OINT 30GM TOP SCH (08:55)
[2020-07-24 14:00] VITALS: BP 150/80
[2020-07-24] MEDS: methocarbamoL 500 MG TAB PO SCH ×2 (16:44→22:16)
[2020-07-24] MEDS: FERROUS GLUCONATE 324 MG TAB PO SCH (21:36)
[2020-07-24] MEDS: ATORVASTATIN 20 MG TAB PO SCH (21:36)
[2020-07-24] MEDS: DULoxetine 30 MG CAP (CYMBALTA) PO SCH (21:37)
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
[2020-07-24 22:00] VITALS: BP 149/89
[2020-07-25] MEDS: ACETAMINOPHEN TAB 650MG DOSE (2X325MG) PO PRN (05:52)
[2020-07-25] MEDS: LEVOTHYROXINE 50MCG TABLET (0.05MG) PO SCH (05:52)
[2020-07-25] MEDS: PIPERACILLIN/TAZOBACTAM SOD 3.375 GM in D5W MINI-BAG PLUS 50 ML IV SCH ×4 (05:53→23:47)
[2020-07-25] MEDS: SLF 3 ML SYR IV SCH ×3 (05:55→23:48)
[2020-07-25 06:00] VITALS: BP 149/86
[2020-07-25] MEDS: FOLIC ACID 1 MG TAB PO SCH (09:07)
[2020-07-25] MEDS: ENOXAPARIN 40MG/0.4ML SYRINGE (J1650 PER 10MG) SC SCH (09:07)
[2020-07-25] MEDS: ASPIRIN 81 MG ENTERIC TAB PO SCH (09:07)
[2020-07-25] MEDS: FAMOTIDINE 20 MG TAB PO SCH ×2 (09:07→21:30)
[2020-07-25] MEDS: GABAPENTIN 300 MG CAP PO SCH ×3 (09:07→21:30)
[2020-07-25] MEDS: methocarbamoL 500 MG TAB PO SCH ×4 (09:08→21:30)
[2020-07-25] MEDS: BUPRENORPHINE/NALOXONE 2-0.5MG SUBLINGUAL TABLET(SUBOXONE) SL SCH ×3 (09:08→21:40)
[2020-07-25] MEDS: MELOXICAM (MOBIC) 7.5 MG TAB PO SCH (09:08)
[2020-07-25] MEDS: CYANOCOBALAMIN 250 MCG TABLET PO SCH (09:08)
[2020-07-25] MEDS: SENOKOT S TAB PO SCH ×2 (09:08→21:30)
[2020-07-25] MEDS: BISACODYL 5 MG TAB PO SCH (09:08)
[2020-07-25] MEDS: VANICREAM MOISTURIZING SKIN CREAM 113GM TUBE TOP SCH ×2 (09:09→21:40)
[2020-07-25] MEDS: METOCLOPRAMIDE 5 MG TAB PO SCH ×2 (09:09→21:31)
[2020-07-25] MEDS: SANTYL OINT 30GM TOP SCH (09:10)
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
[2020-07-25 14:00] VITALS: BP 106/84
--- NOTE | 2020-07-25 14:48 | IPNPDOC ---
Subjective General Date Seen: Jul 24, 2020 Subject Chief Complaint/History The patient is a 64-year-old female admitted with a reason for visit of Acute Hypoxemic Respiratory Failure. Patient's status debridement of sacral wound stage IV and bilateral issue wounds stage III. Patient much improved. Feeling well. Tolerating diet. Compliant with offloading. Current Medications Current Medications Current Medications Medications (Trade) Dose Ordered Sig/Yonatan Route PRN Reason Start Time Stop Time Status Last Admin Dose Admin Acetaminophen (Tylenol Tab) 650 mg Q6HP PRN PO PAIN / FEVER 07/19/20 11:00 07/25/20 05:52 Acetaminophen/ Hydrocodone Bitart (Anexsia, [place] 7.5mg/325mg) 1 tab Q6HP PRN PO SEVERE PAIN (PS 8-10) 07/13/20 22:15 07/19/20 10:58 DC 07/19/20 05:48 Acetaminophen/ Hydrocodone Bitart ([place], Anexsia 5/325) 1 tab Q6HP PRN PO MILD/MODERATE PAIN (PS 1-7) 07/13/20 22:15 07/19/20 10:58 DC 07/16/20 04:24 Artificial Tears (Akwa Tears) 2 drop TIDP PRN OU DRY EYES 07/24/20 00:30 07/24/20 21:38 Aspirin (Ecotrin) 81 mg DAILY PO 07/14/20 09:00 07/25/20 09:07 Atorvastatin Calcium (Lipitor) 40 mg QHS PO 07/13/20 21:00 07/24/20 21:36 Bisacodyl (Dulcolax Tab) 10 mg DAILY PO 07/14/20 09:00 07/25/20 09:08 Buprenorphine/ Naloxone (Suboxone 2/ 0.5mg) 2 tab TID SL 07/20/20 16:00 07/25/20 09:08 Buprenorphine/ Naloxone (Suboxone 8/2mg) 0.5 tab BID SL 07/13/20 21:00 07/13/20 22:30 DC 07/13/20 20:46 Buprenorphine/ Naloxone (Suboxone 8/2mg) 1 tab DAILY SL 07/19/20 11:00 07/20/20 12:51 DC 07/20/20 09:06 Cefepime HCl 1 gm/ Dextrose 50 ml @ 100 mls/hr Q12H IV 07/14/20 06:00 07/23/20 15:04 DC 07/23/20 05:34 Collagenase (SantyL) apply to wounds on back... DAILY TOP 07/16/20 09:00 07/25/20 09:10 Cyanocobalamin (Vitamin B12) 250 mcg DAILY PO 07/14/20 09:00 07/25/20 09:08 Duloxetine HCl (Cymbalta) 60 mg QHS PO 07/13/20 21:00 07/24/20 21:37 Emollient Cream (Vanicream) apply to bilateral feet BID TOP 07/23/20 21:00 07/25/20 09:09 Enoxaparin Sodium (Lovenox) 40 mg DAILY SC 07/14/20 09:00 07/25/20 09:07 Famotidine (Pepcid) 20 mg BID PO 07/20/20 09:00 07/25/20 09:07 Fentanyl Citrate (Sublimaze) 25 mcg Q5MP PRN IV PAIN LEVEL 5-10 07/17/20 16:30 07/17/20 17:30 DC Ferrous Gluconate (Fergon) 324 mg QHS PO 07/13/20 21:00 07/24/20 21:36 Folic Acid (Folic Acid) 1 mg DAILY PO 07/14/20 09:00 07/25/20 09:07 Furosemide (Lasix) 40 mg DAILY PO 07/14/20 09:00 07/13/20 23:47 DC Gabapentin (Neurontin) 900 mg TID PO 07/13/20 21:00 07/25/20 09:07 Home Med (Med Rec Complete!) ASDIRECTED XX 07/13/20 18:30 07/13/20 18:23 DC Hydromorphone HCl (Dilaudid) 0.2 mg Q5MP PRN IV PAIN LEVEL 4-7 07/17/20 16:30 07/17/20 17:30 DC Lactated Ringer's 1,000 ml @ 100 mls/hr Q10H IV 07/17/20 16:30 07/17/20 17:30 DC Levothyroxine Sodium (Synthroid) 50 mcg DAILY@0600 PO 07/14/20 06:00 07/25/20 05:52 Meloxicam (Mobic) 7.5 mg DAILY PO 07/14/20 09:00 07/25/20 09:08 Methocarbamol (Robaxin) 500 mg QID PO 07/24/20 17:00 07/25/20 12:00 Methocarbamol (Robaxin) 500 mg QID PRN PO MUSCLE SPASMS 07/13/20 21:00 07/24/20 16:11 DC 07/24/20 12:20 Metoclopramide HCl (Reglan) 5 mg BID PO 07/13/20 21:00 07/25/20 09:09 Metronidazole (Flagyl) 500 mg TID PO 07/15/20 09:00 07/23/20 15:04 DC 07/23/20 08:25 Miscellaneous (Unresolved Clarification Entry) SEE LABEL COMMENTS DAILY XX 07/21/20 09:00 Cancel Non-Formulary Medication ( See Comment Field Below ) VANCO INTERMIT. DOSING ASDIRECTED XX 07/17/20 11:30 07/18/20 09:02 DC Ondansetron HCl (ZOFRAN INJection) 4 mg Q4HP PRN IV NAUSEA OR VOMITING 07/17/20 16:30 07/17/20 17:30 DC Ondansetron HCl (Zofran) 4 mg TID PRN PO NAUSEA 07/13/20 18:45 07/24/20 21:36 Oxycodone HCl (Roxicodone, Oxyir) 5 mg ASDIRECTED PRN PO PAIN LEVEL 1-4 07/17/20 16:30 07/17/20 17:30 DC Piperacillin Sod/ Tazobactam Sod 3.375 gm/Dextrose 50 ml @ 50 mls/hr Q6H IV 07/23/20 17:00 07/25/20 11:56 Polyethylene Glycol (Miralax) 1 pkt BID PRN PO CONSTIPATION 07/23/20 09:15 Ramelteon (Rozerem) 8 mg QHS PRN PO INSOMNIA 07/13/20 21:00 07/20/20 20:22 Senna/Docusate Sodium (Senokot S) 2 tab BID PO 07/13/20 21:00 07/25/20 09:08 Sodium Chloride (Saline Lock Flush) 2 ml ASDIRECTED PRN IV SEE LABEL COMMENTS 07/15/20 11:30 Sodium Chloride (Saline Lock Flush) 2 ml SLF IV 07/15/20 14:00 07/25/20 13:04 Vancomycin HCl 750 mg/IV Miscellaneous Supplies 1 each/ Dextrose 275 ml @ 275 mls/hr Q12H IV 07/18/20 08:00 07/23/20 15:04 DC 07/23/20 08:27 Vancomycin HCl 1000 mg/IV Miscellaneous Supplies 1 each/ Dextrose 270 ml @ 270 mls/hr Q12H IV 07/14/20 08:00 07/17/20 11:05 DC 07/17/20 08:13 Vancomycin HCl 1000 mg/IV Miscellaneous Supplies 1 each/ Dextrose 270 ml @ 270 mls/hr Q8H IV 07/14/20 08:00 07/14/20 07:26 DC Allergies Coded Allergies: No Known Allergies (Unverified , 10/15/18) Objective Physical Examination Examination GENERAL APPEARANCE:Patient seen, laying in bed, awake, alert, and oriented. Comfortable, in no acute distress. SKIN: Warm and moist. Sacrum clean granulating tissue wound stage IV 13x14x 3.5cm, bilateral ischial wounds clean granulating tissue right side 10x8cm cluster, left side 11x10 cm cluster. HEENT: Normocephalic, atraumatic. Branch palpebral conjunctiva, anicteric sclerae. Lips and mucosa appear moist. NECK: Supple, no thyromegaly. No obvious jugular venous distention. Tracheostomy tube in place LUNGS: Clear to auscultation bilaterally. No wheezing appreciated. HEART: [No chest wall abnormalities. Regular rate and rhythm with no murmurs appreciated]. Vital Signs Vital Signs Date Time Temp Pulse Resp B/P (MAP) Pulse Ox O2 Delivery O2 Flow Rate FiO2 07/25/20 14:00 98.9 116 16 106/84 (91) 95 Room Air 07/24/20 22:00 07/24/20 21:00 28 I&Os I&O- Last 24 Hours up to 6 AM 07/25/20 06:00 Intake Total 1070 ml Output Total 1000 ml Balance 70 ml Laboratory Data Microbiology Microbiology 07/17/20 Anaerobic Culture - Final, Complete Clostridium Butyricum Bacteroides Fragilis Anaerobic Cocci 07/17/20 Wound Culture - Final, Complete Klebsiella Pneumoniae Pseudomonas Aeruginosa Pasturella Canis Staphylococcus Sp Coag Neg Enterococcus Avium Impression Sacral stage IV, bilateral ischial wounds stage III. Improving. Clean wounds. Continue with Hydrofera blue, foam dressings daily. Unable to place wound vac on the sacrum due to body habitus, difficulty maintaning the seal. Off load. Continue with air flow mattress. Much improved. Patient will be following in wound care after discharge. Plan / VTE VTE Prophylaxis Ordered?: Yes MCKENZIE MULLEN DO Jul 25, 2020 14:48
[2020-07-25] MEDS: DULoxetine 30 MG CAP (CYMBALTA) PO SCH (21:30)
[2020-07-25] MEDS: FERROUS GLUCONATE 324 MG TAB PO SCH (21:31)
[2020-07-25] MEDS: ATORVASTATIN 20 MG TAB PO SCH (21:31)
[2020-07-25 22:00] VITALS: BP 100/62
[2020-07-26 06:00] VITALS: BP 110/66
[2020-07-26] MEDS: LEVOTHYROXINE 50MCG TABLET (0.05MG) PO SCH (06:37)
[2020-07-26] MEDS: PIPERACILLIN/TAZOBACTAM SOD 3.375 GM in D5W MINI-BAG PLUS 50 ML IV SCH ×4 (06:37→23:09)
[2020-07-26] MEDS: SLF 3 ML SYR IV SCH ×3 (06:38→22:00)
[2020-07-26] MEDS: ACETAMINOPHEN TAB 650MG DOSE (2X325MG) PO PRN (06:50)
[2020-07-26 08:00] VITALS: BP 105/63
[2020-07-26] MEDS: SANTYL OINT 30GM TOP SCH (09:00)
[2020-07-26] MEDS: BUPRENORPHINE/NALOXONE 2-0.5MG SUBLINGUAL TABLET(SUBOXONE) SL SCH ×3 (09:14→22:00)
[2020-07-26] MEDS: methocarbamoL 500 MG TAB PO SCH ×4 (09:14→22:01)
[2020-07-26] MEDS: MELOXICAM (MOBIC) 7.5 MG TAB PO SCH (09:14)
[2020-07-26] MEDS: SENOKOT S TAB PO SCH ×2 (09:32→22:01)
[2020-07-26] MEDS: BISACODYL 5 MG TAB PO SCH (09:33)
[2020-07-26] MEDS: ASPIRIN 81 MG ENTERIC TAB PO SCH (09:33)
[2020-07-26] MEDS: METOCLOPRAMIDE 5 MG TAB PO SCH ×2 (09:33→22:00)
[2020-07-26] MEDS: FAMOTIDINE 20 MG TAB PO SCH ×2 (09:33→22:00)
[2020-07-26] MEDS: FOLIC ACID 1 MG TAB PO SCH (09:33)
[2020-07-26] MEDS: CYANOCOBALAMIN 250 MCG TABLET PO SCH (09:33)
[2020-07-26] MEDS: GABAPENTIN 300 MG CAP PO SCH ×3 (09:34→22:01)
[2020-07-26] MEDS: ENOXAPARIN 40MG/0.4ML SYRINGE (J1650 PER 10MG) SC SCH (09:34)
[2020-07-26] MEDS: VANICREAM MOISTURIZING SKIN CREAM 113GM TUBE TOP SCH ×2 (09:35→22:02)
[2020-07-26] MEDS: POLYVINYL ALCOHOL OPHTH SOLN 15 ML(LIQUITEARS) OU PRN (12:29)
[2020-07-26 13:30] VITALS: BP 108/61
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
[2020-07-26] MEDS ORDERED: LIDOCAINE 1% MDV 20ML VIAL As Ordered ONE (14:35)
[2020-07-26] MEDS: SODIUM CHLORIDE 0.9% INJ 10 ML SYR IV SCH (17:45)
--- NOTE | 2020-07-26 18:17 | REP ---
PROCEDURE NAME: MIDLINE INSERTION W/ SITERITE CLINICAL INFORMATION: prolonged iv therapy. COMPARISON: None. PROCEDURE DESCRIPTION: The procedure was performed by ROSITA Vásquez, under the direct supervision of Dr. Winslow. The risks and benefits of the procedure were explained to the patient and an informed consent was obtained both verbally and written. Directly prior to the start of the procedure a formal time-out was completed in the procedure room. The left basilic vein was localized using ultrasound guidance. The skin was prepped and draped in sterile fashion. Two mL of 1% lidocaine 10 mg/mL was used as a local anesthetic. Using ultrasound guidance the left basilic vein was cannulated, and a 0.018 guidewire was inserted. The needle was removed and a 4.5 Iraqi dilator and peel-away sheath was inserted over the guidewire. A 4.5 Iraqi single lumen catheter was cut to a length of 14.5 cm. The dilator was removed and the catheter was inserted over the guidewire. The peel-away sheath was removed and the catheter was flushed with heparinized saline as per hospital protocol. The catheter was affixed to the skin and a sterile dressing was applied. The patient tolerated the procedure well and there were no immediate complications. CONCLUSION: Mid line insertion into the left basilic vein. <Electronically signed by Genesis Solorio > 07/26/20 1600 <Electronically signed by Mario Winslow > 07/26/20 1232
[2020-07-26 22:00] VITALS: BP 138/88
[2020-07-26] MEDS: DULoxetine 30 MG CAP (CYMBALTA) PO SCH (22:00)
[2020-07-26] MEDS: ATORVASTATIN 20 MG TAB PO SCH (22:01)
[2020-07-26] MEDS: FERROUS GLUCONATE 324 MG TAB PO SCH (22:01)
[2020-07-26] MEDS: SODIUM CHLORIDE 0.9% INJ 10 ML SYR IV PRN (23:12)
[2020-07-27] MEDS: SODIUM CHLORIDE 0.9% INJ 10 ML SYR IV PRN ×2 (00:33→05:34)
[2020-07-27] MEDS: ACETAMINOPHEN TAB 650MG DOSE (2X325MG) PO PRN (00:41)
[2020-07-27] MEDS: LEVOTHYROXINE 50MCG TABLET (0.05MG) PO SCH (05:32)
[2020-07-27] MEDS: PIPERACILLIN/TAZOBACTAM SOD 3.375 GM in D5W MINI-BAG PLUS 50 ML IV SCH ×2 (05:33→11:22)
[2020-07-27] MEDS: SLF 3 ML SYR IV SCH (05:36)
[2020-07-27 06:00] VITALS: BP 105/54
[2020-07-27] MEDS: SODIUM CHLORIDE 0.9% INJ 10 ML SYR IV SCH ×2 (06:38→17:43)
[2020-07-27] MEDS: CYANOCOBALAMIN 250 MCG TABLET PO SCH (08:43)
[2020-07-27] MEDS: ENOXAPARIN 40MG/0.4ML SYRINGE (J1650 PER 10MG) SC SCH (08:43)
[2020-07-27] MEDS: GABAPENTIN 300 MG CAP PO SCH ×3 (08:43→20:42)
[2020-07-27] MEDS: ASPIRIN 81 MG ENTERIC TAB PO SCH (08:43)
[2020-07-27] MEDS: FAMOTIDINE 20 MG TAB PO SCH ×2 (08:43→20:43)
[2020-07-27] MEDS: METOCLOPRAMIDE 5 MG TAB PO SCH ×2 (08:43→20:42)
[2020-07-27] MEDS: SENOKOT S TAB PO SCH ×2 (08:43→20:42)
[2020-07-27] MEDS: FOLIC ACID 1 MG TAB PO SCH (08:44)
[2020-07-27] MEDS: VANICREAM MOISTURIZING SKIN CREAM 113GM TUBE TOP SCH ×2 (08:44→20:43)
[2020-07-27] MEDS: methocarbamoL 500 MG TAB PO SCH ×4 (08:44→20:42)
[2020-07-27] MEDS: BUPRENORPHINE/NALOXONE 2-0.5MG SUBLINGUAL TABLET(SUBOXONE) SL SCH ×3 (08:44→20:42)
[2020-07-27] MEDS: BISACODYL 5 MG TAB PO SCH (08:44)
[2020-07-27] MEDS: MELOXICAM (MOBIC) 7.5 MG TAB PO SCH (08:44)
[2020-07-27] MEDS: ONDANSETRON 4 MG TAB PO PRN (11:27)
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
[2020-07-27 14:00] VITALS: BP 107/55
[2020-07-27] MEDS: SANTYL OINT 30GM TOP SCH (16:02)
--- NOTE | 2020-07-27 18:01 | IPN ---
PROGRESS NOTE DATE: 07/27/2020 Nadege seems to be doing well. She is anxious to go home. She refuses to go to the residential, even though her significant other is not able to take care of her fully, as she has a lot of needs. Her wound decubitus ulcer seems to be doing well. She has had no fever or chills. Her only complaint is the cramps. She has been afebrile. Temperature is 98.4, pulse 98, respirations 18, blood pressure 107/55, oxygen saturation 97% on room air. HEART: Normal S1, S2. No murmurs. LUNGS: Clear. ABDOMEN: Obese, soft, nontender. MEDICATIONS: She is currently on intravenous (IV) Zosyn 3.375 grams every 6 hours, and she has finished a total of 2-week treatment from July 13. The wounds look good. Wound cultures are positive for Clostridium bacteroides, anaerobic cocci, klebsiella, pseudomonas, Pasteurella, Enterococcus avium. They have been debrided by Dr. Lopez, and there was no evidence of osteomyelitis chronically. Zosyn was discontinued today. Plan to get her home hopefully in the coming few days. No labs have been done in 4 days. We will repeat complete blood count (CBC), erythrocyte sedimentation rate (ESR), C-reactive protein (CRP), basic profile tomorrow before discharge. She does not need home oral antibiotics. She was treated for soft tissue abscess with debridement and IV antibiotics. She needs to followup at the wound clinic with Dr. Reed. Unfortunately, her prognosis is poor because the care she gets at home is not appropriate for the needs she has even though the significant other does his best. Case has been discussed with Dr. Barbara Barrientos.
[2020-07-27] MEDS: FERROUS GLUCONATE 324 MG TAB PO SCH (20:42)
[2020-07-27] MEDS: DULoxetine 30 MG CAP (CYMBALTA) PO SCH (20:42)
[2020-07-27] MEDS: ATORVASTATIN 20 MG TAB PO SCH (20:43)
[2020-07-27 22:00] VITALS: BP 127/68
[2020-07-28] MEDS: ACETAMINOPHEN TAB 650MG DOSE (2X325MG) PO PRN (04:09)
[2020-07-28] MEDS ORDERED: FAMO20TA PO (05:40)
[2020-07-28] MEDS ORDERED: VANI1CRE5 TOP (05:40)
[2020-07-28] MEDS ORDERED: BISAC5TA PO (05:40)
[2020-07-28] MEDS ORDERED: RA S8.6T3 PO (05:40)
[2020-07-28] MEDS ORDERED: POLYOPD OU (05:40)
[2020-07-28] MEDS: SODIUM CHLORIDE 0.9% INJ 10 ML SYR IV SCH (05:58)
[2020-07-28] MEDS: LEVOTHYROXINE 50MCG TABLET (0.05MG) PO SCH (05:58)
[2020-07-28 06:00] VITALS: BP 128/70
[2020-07-28 06:28] LABS: BASO # 0.2 10^3/uL (0.0-0.2); BASO % 1.8 % (0.0-1.0); EOS # 0.9 10^3/uL (0.0-0.5); EOS % 9.2 % (0.0-3.0); HEMATOCRIT 25.7 % (36.0-47.0); HEMOGLOBIN 7.6 g/dl (12.0-15.5); LYMPH % 20.6 % (24.0-44.0); MEAN CORPUSCULAR HEMOGLOBIN 24.7 pg (27.0-33.0); MEAN CORPUSCULAR HGB CONC 29.6 g/dl (32.0-36.5); MEAN CORPUSCULAR VOLUME 83.4 fl (80.0-96.0); MONO # 0.9 10^3/uL (0.0-0.8); MONO % 9.8 % (2.0-8.0); NEUTROPHILS # 5.6 10^3/uL (1.5-8.5); NEUTROPHILS % 58.3 % (36.0-66.0); PLATELET COUNT, AUTOMATED 397 10^3/uL (150-450); RED BLOOD COUNT 3.08 10^6/uL (4.00-5.40); WHITE BLOOD COUNT 9.5 10^3/uL (4.0-10.0)
[2020-07-28 06:58] LABS: BLOOD UREA NITROGEN 7 MG/DL (7-18); C REACTIVE PROTEIN QUANTITATIV 0.64 MG/DL (0.00-0.30); CALCIUM LEVEL 7.6 MG/DL (8.8-10.2); CARBON DIOXIDE LEVEL 31 MEQ/L (21-32); CHLORIDE LEVEL 103 MEQ/L (98-107); CREATININE FOR GFR 0.34 MG/DL (0.55-1.30); GLOMERULAR FILTRATION RATE > 60.0 (>45); GLUCOSE, FASTING 101 MG/DL (70-100); POTASSIUM SERUM 3.8 MEQ/L (3.5-5.1); SODIUM LEVEL 138 MEQ/L (136-145)
[2020-07-28 07:01] LABS: ERYTHROCYTE SEDIMENTATION RATE 63 mm/hr (0-30)
[2020-07-28] MEDS: BUPRENORPHINE/NALOXONE 2-0.5MG SUBLINGUAL TABLET(SUBOXONE) SL SCH (08:24)
[2020-07-28] MEDS: GABAPENTIN 300 MG CAP PO SCH (08:25)
[2020-07-28] MEDS: FAMOTIDINE 20 MG TAB PO SCH (08:25)
[2020-07-28] MEDS: BISACODYL 5 MG TAB PO SCH (08:25)
[2020-07-28] MEDS: MELOXICAM (MOBIC) 7.5 MG TAB PO SCH (08:25)
[2020-07-28] MEDS: FOLIC ACID 1 MG TAB PO SCH (08:25)
[2020-07-28] MEDS: SENOKOT S TAB PO SCH (08:25)
[2020-07-28] MEDS: ASPIRIN 81 MG ENTERIC TAB PO SCH (08:25)
[2020-07-28] MEDS: METOCLOPRAMIDE 5 MG TAB PO SCH (08:25)
[2020-07-28] MEDS: methocarbamoL 500 MG TAB PO SCH (08:25)
[2020-07-28] MEDS: VANICREAM MOISTURIZING SKIN CREAM 113GM TUBE TOP SCH (08:25)
[2020-07-28] MEDS: CYANOCOBALAMIN 250 MCG TABLET PO SCH (08:25)
[2020-07-28] MEDS: ENOXAPARIN 40MG/0.4ML SYRINGE (J1650 PER 10MG) SC SCH (08:26)
[2020-07-28] MEDS: SANTYL OINT 30GM TOP SCH (08:26)
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
== END 2020-07-28 12:13 | disposition home health service (06) | DRG 710 ==
LOC: M ED 13:04 → EDBD 13:04 → M ED INP 18:03 → M PCU 21:38 → M MSPAV 07-18 16:21
PROVIDERS: ADMIT Internal Medicine Nephrology; ATTEND Internal Medicine Nephrology
PROC: 0JBL0ZZ Excision of Right Upper Leg Subcutaneous Tissue and Fascia, Open Approach (ICD-10-PCS; 2020-07-17)
PROC: 0KDG0ZZ Extraction of Left Trunk Muscle, Open Approach (ICD-10-PCS; principal; 2020-07-17 13:30)
PROC: 05HC33Z Insertion of Infusion Device into Left Basilic Vein, Percutaneous Approach (ICD-10-PCS; 2020-07-26)
DX: A41.9 Sepsis, unspecified organism (principal); G82.50 Quadriplegia, unspecified; L89.154 Pressure ulcer of sacral region, stage 4; J96.21 Acute and chronic respiratory failure with hypoxia; L89.223 Pressure ulcer of left hip, stage 3; L89.213 Pressure ulcer of right hip, stage 3; I50.32 Chronic diastolic (congestive) heart failure; J95.03 Malfunction of tracheostomy stoma; N31.9 Neuromuscular dysfunction of bladder, unspecified; G62.9 Polyneuropathy, unspecified; E66.01 Morbid (severe) obesity due to excess calories; Z68.42 Body mass index [BMI] 45.0-49.9, adult; M62.838 Other muscle spasm; G43.909 Migraine, unspecified, not intractable, without status migrainosus; B96.89 Other specified bacterial agents as the cause of diseases classified elsewhere; B96.5 Pseudomonas (aeruginosa) (mallei) (pseudomallei) as the cause of diseases classified elsewhere; N39.0 Urinary tract infection, site not specified; M54.16 Radiculopathy, lumbar region; B96.1 Klebsiella pneumoniae [K. pneumoniae] as the cause of diseases classified elsewhere; Y84.6 Urinary catheterization as the cause of abnormal reaction of the patient, or of later complication, without mention of misadventure at the time of the procedure; K56.41 Fecal impaction; E03.9 Hypothyroidism, unspecified; F11.90 Opioid use, unspecified, uncomplicated; E78.5 Hyperlipidemia, unspecified; Z79.82 Long term (current) use of aspirin; Z79.899 Other long term (current) drug therapy; Z93.3 Colostomy status; J96.12 Chronic respiratory failure with hypercapnia

== ENCOUNTER 2020-09-07 10:07 | Inpatient (IN) | payer MEDICARE, OTHER ==
[~2020-09-07] VITALS: Ht 165.1 cm; Wt 116.1 kg
[2020-09-07] MEDS: LEVOTHYROXINE 50MCG TABLET (0.05MG) PO SCH (06:00)
[2020-09-07] MEDS: ASPIRIN 81MG ENTERIC TABLET PO SCH (09:00)
[2020-09-07] MEDS: FOLIC ACID 1 MG TAB PO SCH (09:00)
[2020-09-07] MEDS: CYANOCOBALAMIN 250 MCG TABLET PO SCH (09:00)
[2020-09-07] MEDS: MELOXICAM (MOBIC) 7.5 MG TAB PO SCH (09:00)
[2020-09-07] MEDS: METOCLOPRAMIDE 5 MG TAB PO SCH ×2 (09:00→20:39)
[~2020-09-07 10:07] MED LIST changes: +BISAC5TA PO; +COLA100C5 PO; +FAMO20TA PO; +MELA3TAB30 PO; +PATIENT COMMENT; +POLYOPD OU; +TIZA1TAB12 PO; +VANI1CRE5 TOP
[2020-09-07 11:00] LABS: BASO # 0.1 10^3/uL (0.0-0.2); BASO % 0.9 % (0.0-1.0); EOS # 0.2 10^3/uL (0.0-0.5); EOS % 1.2 % (0.0-3.0); HEMATOCRIT 30.9 % (36.0-47.0); HEMOGLOBIN 9.3 g/dl (12.0-15.5); LYMPH # 1.7 10^3/uL (1.5-5.0); LYMPH % 10.5 % (24.0-44.0); MEAN CORPUSCULAR HEMOGLOBIN 24.3 pg (27.0-33.0); MEAN CORPUSCULAR HGB CONC 30.1 g/dl (32.0-36.5); MEAN CORPUSCULAR VOLUME 80.7 fl (80.0-96.0); MONO # 1.6 10^3/uL (0.0-0.8); MONO % 10.3 % (2.0-8.0); NEUTROPHILS # 12.1 10^3/uL (1.5-8.5); NEUTROPHILS % 75.8 % (36.0-66.0); PLATELET COUNT, AUTOMATED 711 10^3/uL (150-450); RED BLOOD COUNT 3.83 10^6/uL (4.00-5.40)
[2020-09-07 11:16] LABS: BLOOD UREA NITROGEN 10 MG/DL (7-18); CARBON DIOXIDE LEVEL 30 MEQ/L (21-32); CHLORIDE LEVEL 99 MEQ/L (98-107); CREATININE FOR GFR 0.38 MG/DL (0.55-1.30); GLOMERULAR FILTRATION RATE > 60.0 (>45); GLUCOSE, FASTING 148 MG/DL (70-100); POTASSIUM SERUM 3.9 MEQ/L (3.5-5.1); SODIUM LEVEL 136 MEQ/L (136-145)
[2020-09-07 11:18] LABS: WHITE BLOOD COUNT 15.9 10^3/uL (4.0-10.0)
--- NOTE | 2020-09-07 11:32 | REP ---
INDICATION: weakness. COMPARISON: 07/13/2020. TECHNIQUE: SINGLE PORTABLE AP VIEW OF THE CHEST WAS PERFORMED. FINDINGS: No infiltrate is seen. There is mild bibasilar fibro atelectatic change. Heart is upper limits of normal in size. Mediastinal silhouette is unremarkable. Metallic fixation is seen in the upper thoracic spine. There is a tracheostomy tube which appears to be in place. There is slight elevation of the right hemidiaphragm unchanged. IMPRESSION: No acute infiltrate. Mild bibasilar fibro atelectatic change. <Electronically signed by Bishop Hull > 09/07/20 1129
[2020-09-07] MEDS ORDERED: NS 500 ML IV ONE (12:25)
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
[2020-09-07] MEDS ORDERED: SENN-80 PO (12:54)
[2020-09-07] MEDS ORDERED: HYDR-3363 PO (12:54)
[2020-09-07] MEDS ORDERED: SUBO4MIS SL (12:54)
[2020-09-07] MEDS ORDERED: TIZA4TAB4 PO (12:54)
[2020-09-07] MEDS ORDERED: METH-1164 PO (12:54)
[2020-09-07] MEDS ORDERED: ONDA4TAB6 PO (12:54)
[2020-09-07] MEDS ORDERED: AKWASOL OU (12:54)
[2020-09-07] MEDS ORDERED: FAMO20TA PO (12:54)
[2020-09-07] MEDS ORDERED: cefTRIAXone SOD 1 GM in D5W MINI-BAG PLUS 50 ML IV SCH (13:00)
[2020-09-07] MEDS ORDERED: HOME MED LIST COMPLETE! XX SCH (13:00)
[2020-09-07] MEDS ORDERED: FAMOTIDINE 20 MG TAB PO PRN (13:55)
[2020-09-07] MEDS ORDERED: GLUCOSE 4GM CHEW TABLET PO PRN (14:10)
[2020-09-07] MEDS ORDERED: GLUCAGON INJ 1MG VIAL SC PRN (14:10)
[2020-09-07] MEDS ORDERED: DEXTROSE 50% 50 ML SYRINGE IV PRN (14:10)
--- NOTE | 2020-09-07 14:43 | REP ---
INDICATION: abdominal pain, n/v. COMPARISON: Abdomen/pelvis CT of 07/24/2020. TECHNIQUE: Abdomen/pelvis CT without IV or bowel contrast. FINDINGS: There is dependent atelectasis in the visualized lower lung blair at has slightly improved. The previous small left pleural effusion has resolved. The right hemidiaphragm is elevated, as previously. The liver again appears enlarged, unchanged. Surgical clips are again noted in the gallbladder fossa. Pancreas and spleen are unremarkable and unchanged. The adrenals and kidneys are unchanged. A Bosniak type 1 right renal cyst is again noted. No left renal calculi are identified on the study today. There is no hydronephrosis. There is no small bowel distention or obstruction. There is no colonic distention or obstruction. There is a left lower quadrant colostomy and oversewn Eli pouch. There is no ascites. No abdominal mass or adenopathy. Pelvis: Uterus and adnexa are unremarkable. There is a Owod catheter in the bladder, similar to the prior study. The patient's known sacral decubitus ulcer is again identified as described previously. There appears to be exposed bone as explained in detail previously. IMPRESSION: There is no bowel distention or obstruction. There is a left lower quadrant colostomy and oversewn Eli's pouch. Hepatomegaly, unchanged. Sacral decubitus ulcer, unchanged. Bilateral lower lobe atelectasis that appears to have improved. <Electronically signed by Bishop Yanes > 09/07/20 [id number]
[2020-09-07 14:54] LABS: INR 1.19; PROTHROMBIN TIME 15.4 SECONDS (12.5-14.3)
[2020-09-07 14:55] LABS: PARTIAL THROMBOPLASTIN TIME 34.6 SECONDS (24.2-38.5)
[2020-09-07 15:04] LABS: ALBUMIN 1.6 GM/DL (3.2-5.2); ALT/SGPT 14 U/L (12-78); BILIRUBIN,TOTAL 0.2 MG/DL (0.2-1.0); BLOOD UREA NITROGEN 10 MG/DL (7-18); CALCIUM LEVEL 8.1 MG/DL (8.8-10.2); CARBON DIOXIDE LEVEL 34 MEQ/L (21-32); CHLORIDE LEVEL 99 MEQ/L (98-107); CREATININE FOR GFR 0.41 MG/DL (0.55-1.30); GLOMERULAR FILTRATION RATE > 60.0 (>45); GLUCOSE, FASTING 119 MG/DL (70-100); POTASSIUM SERUM 3.5 MEQ/L (3.5-5.1); SODIUM LEVEL 137 MEQ/L (136-145); TOTAL PROTEIN 6.7 GM/DL (6.4-8.2)
[2020-09-07] MEDS: NS 1,000 ML IV SCH (16:54)
[2020-09-07 17:10] VITALS: BP 156/71
[2020-09-07] MEDS: HumaLOG INSULIN (NovoLOG) PER UNIT SC SCH ×2 (17:30→21:00)
[2020-09-07] MEDS: PIPERACILLIN/TAZOBACTAM SOD 3.375 GM in D5W MINI-BAG PLUS 50 ML IV SCH ×2 (17:43→22:48)
[2020-09-07] MEDS: GABAPENTIN 300 MG CAP PO SCH ×2 (17:43→20:39)
[2020-09-07] MEDS: SENNA 8.6 MG TAB (SENOKOT) PO SCH (20:39)
[2020-09-07] MEDS: DOCUSATE SODIUM 100MG CAPSULE PO SCH (20:39)
[2020-09-07] MEDS: FERROUS GLUCONATE 324 MG TAB PO SCH (20:39)
[2020-09-07] MEDS: ATORVASTATIN 20 MG TAB PO SCH (20:40)
[2020-09-07] MEDS: BUPRENORPHINE/NALOXONE 2-0.5MG SUBLINGUAL TABLET(SUBOXONE) SL SCH (20:40)
[2020-09-07] MEDS: DULoxetine 30MG CAPSULE (CYMBALTA) PO SCH (20:40)
[2020-09-07] MEDS: tiZANidine 4 MG TAB PO PRN (20:44)
--- NOTE | 2020-09-07 21:13 | ECGEPIP ---
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
[2020-09-07 22:00] VITALS: BP 151/91
[2020-09-08] MEDS: PIPERACILLIN/TAZOBACTAM SOD 3.375 GM in D5W MINI-BAG PLUS 50 ML IV SCH ×4 (05:35→21:56)
[2020-09-08] MEDS: NS 1,000 ML IV SCH (05:36)
[2020-09-08] MEDS: LEVOTHYROXINE 50MCG TABLET (0.05MG) PO SCH (05:36)
[2020-09-08 06:00] VITALS: BP 103/52
[2020-09-08 06:15] LABS: HEMATOCRIT 26.5 % (36.0-47.0); HEMOGLOBIN 7.9 g/dl (12.0-15.5); MEAN CORPUSCULAR HEMOGLOBIN 24.5 pg (27.0-33.0); MEAN CORPUSCULAR HGB CONC 29.8 g/dl (32.0-36.5); RED BLOOD COUNT 3.23 10^6/uL (4.00-5.40); WHITE BLOOD COUNT 12.5 10^3/uL (4.0-10.0)
[2020-09-08 06:16] LABS: PLATELET COUNT, AUTOMATED 579 10^3/uL (150-450)
[2020-09-08 06:38] LABS: ALBUMIN 1.4 GM/DL (3.2-5.2); ALT/SGPT 11 U/L (12-78); BILIRUBIN,TOTAL 0.1 MG/DL (0.2-1.0); BLOOD UREA NITROGEN 10 MG/DL (7-18); CALCIUM LEVEL 7.1 MG/DL (8.8-10.2); CARBON DIOXIDE LEVEL 30 MEQ/L (21-32); CHLORIDE LEVEL 103 MEQ/L (98-107); CREATININE FOR GFR 0.38 MG/DL (0.55-1.30); GLOMERULAR FILTRATION RATE > 60.0 (>45); GLUCOSE, FASTING 114 MG/DL (70-100); POTASSIUM SERUM 3.7 MEQ/L (3.5-5.1); SODIUM LEVEL 136 MEQ/L (136-145); TOTAL PROTEIN 5.4 GM/DL (6.4-8.2)
[2020-09-08] MEDS: HumaLOG INSULIN (NovoLOG) PER UNIT SC SCH ×5 (07:30→20:02)
[2020-09-08] MEDS: ACETAMINOPHEN TAB 650MG DOSE (2X325MG) PO PRN (08:11)
[2020-09-08] MEDS: BUPRENORPHINE/NALOXONE 2-0.5MG SUBLINGUAL TABLET(SUBOXONE) SL SCH ×2 (08:11→21:55)
[2020-09-08] MEDS: ENOXAPARIN 40MG/0.4ML SYRINGE (J1650 PER 10MG) SC SCH (08:11)
[2020-09-08] MEDS ORDERED: FUROSEMIDE 40 MG TAB PO SCH (09:00)
[2020-09-08] MEDS ORDERED: ONDANSETRON 4 MG ORAL DISINTEGRATING TAB PO SCH (09:00)
[2020-09-08] MEDS: CYANOCOBALAMIN 250 MCG TABLET PO SCH (09:42)
[2020-09-08] MEDS: MELOXICAM (MOBIC) 7.5 MG TAB PO SCH (09:42)
[2020-09-08] MEDS: GABAPENTIN 300 MG CAP PO SCH ×3 (09:42→21:55)
[2020-09-08] MEDS: ASPIRIN 81MG ENTERIC TABLET PO SCH (09:43)
[2020-09-08] MEDS: DOCUSATE SODIUM 100MG CAPSULE PO SCH ×2 (09:43→21:55)
[2020-09-08] MEDS: FOLIC ACID 1 MG TAB PO SCH (09:43)
[2020-09-08] MEDS: METOCLOPRAMIDE 5 MG TAB PO SCH ×2 (09:45→21:55)
[2020-09-08] MEDS ORDERED: VANCOMYCIN HCL 1,000 MG, VIAL MATE ADAPTER 1 EACH in NS 250 ML IV SCH (10:25)
[2020-09-08] MEDS ORDERED: VANCOMYCIN HCL 1,000 MG, VIAL MATE ADAPTER 1 EACH in NS 250 ML IV ONE ×2 (12:00→13:00)
[2020-09-08 14:00] VITALS: BP 112/67
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
[2020-09-08] MEDS: FERROUS GLUCONATE 324 MG TAB PO SCH (21:54)
[2020-09-08] MEDS: SENNA 8.6 MG TAB (SENOKOT) PO SCH (21:55)
[2020-09-08] MEDS: tiZANidine 4 MG TAB PO PRN (21:55)
[2020-09-08] MEDS: DULoxetine 30MG CAPSULE (CYMBALTA) PO SCH (21:55)
[2020-09-08] MEDS: ATORVASTATIN 20 MG TAB PO SCH (21:55)
[2020-09-08 22:00] VITALS: BP 135/69
[2020-09-08] MEDS: VANCOMYCIN HCL 1,000 MG, VIAL MATE ADAPTER 1 EACH in NS 250 ML IV SCH (23:33)
[2020-09-09] MEDS: PIPERACILLIN/TAZOBACTAM SOD 3.375 GM in D5W MINI-BAG PLUS 50 ML IV SCH ×7 (04:38→21:21)
[2020-09-09] MEDS: LEVOTHYROXINE 50MCG TABLET (0.05MG) PO SCH (05:47)
[2020-09-09 06:00] VITALS: BP 121/72
[2020-09-09 06:34] LABS: HEMATOCRIT 26.1 % (36.0-47.0); HEMOGLOBIN 7.6 g/dl (12.0-15.5); MEAN CORPUSCULAR HEMOGLOBIN 24.2 pg (27.0-33.0); MEAN CORPUSCULAR HGB CONC 29.1 g/dl (32.0-36.5); MEAN CORPUSCULAR VOLUME 83.1 fl (80.0-96.0); PLATELET COUNT, AUTOMATED 511 10^3/uL (150-450); RED BLOOD COUNT 3.14 10^6/uL (4.00-5.40)
[2020-09-09 07:00] LABS: ALBUMIN 1.2 GM/DL (3.2-5.2); ALT/SGPT 10 U/L (12-78); BILIRUBIN,TOTAL 0.2 MG/DL (0.2-1.0); BLOOD UREA NITROGEN 10 MG/DL (7-18); CALCIUM LEVEL 7.5 MG/DL (8.8-10.2); CARBON DIOXIDE LEVEL 31 MEQ/L (21-32); CHLORIDE LEVEL 101 MEQ/L (98-107); CREATININE FOR GFR 0.37 MG/DL (0.55-1.30); GLOMERULAR FILTRATION RATE > 60.0 (>45); GLUCOSE, FASTING 101 MG/DL (70-100); POTASSIUM SERUM 3.1 MEQ/L (3.5-5.1); SODIUM LEVEL 135 MEQ/L (136-145); TOTAL PROTEIN 5.5 GM/DL (6.4-8.2)
[2020-09-09] MEDS: HumaLOG INSULIN (NovoLOG) PER UNIT SC SCH ×4 (07:30→21:00)
[2020-09-09] MEDS: GABAPENTIN 300 MG CAP PO SCH ×3 (10:14→21:33)
[2020-09-09] MEDS: POTASSIUM CHLORIDE 10MEQ SR TABLET PO SCH ×2 (10:15→13:45)
[2020-09-09] MEDS: DOCUSATE SODIUM 100MG CAPSULE PO SCH ×2 (10:15→21:32)
[2020-09-09] MEDS: METOCLOPRAMIDE 5 MG TAB PO SCH ×2 (10:15→21:32)
[2020-09-09] MEDS: CYANOCOBALAMIN 250 MCG TABLET PO SCH (10:15)
[2020-09-09] MEDS: BUPRENORPHINE/NALOXONE 2-0.5MG SUBLINGUAL TABLET(SUBOXONE) SL SCH ×2 (10:15→21:32)
[2020-09-09] MEDS: FOLIC ACID 1 MG TAB PO SCH (10:15)
[2020-09-09] MEDS: MELOXICAM (MOBIC) 7.5 MG TAB PO SCH (10:15)
[2020-09-09] MEDS: ENOXAPARIN 40MG/0.4ML SYRINGE (J1650 PER 10MG) SC SCH (10:16)
[2020-09-09] MEDS: ACETAMINOPHEN TAB 650MG DOSE (2X325MG) PO PRN (10:16)
[2020-09-09] MEDS: ASPIRIN 81MG ENTERIC TABLET PO SCH (10:16)
[2020-09-09] MEDS: VANCOMYCIN HCL 1,000 MG, VIAL MATE ADAPTER 1 EACH in NS 250 ML IV SCH ×3 (11:52→21:20)
[2020-09-09 14:00] VITALS: BP 97/53
[2020-09-09 15:21] VITALS: BP 120/62
[2020-09-09] MEDS ORDERED: FUROSEMIDE 100MG/10ML VIAL (J1940) IV ONE (15:30)
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
[2020-09-09] MEDS: oxyBUTYnin *DITROPAN XL* 5 MG TABCR PO SCH (19:28)
[2020-09-09] MEDS: DULoxetine 30MG CAPSULE (CYMBALTA) PO SCH (21:32)
[2020-09-09] MEDS: tiZANidine 4 MG TAB PO PRN (21:32)
[2020-09-09] MEDS: FERROUS GLUCONATE 324 MG TAB PO SCH (21:32)
[2020-09-09] MEDS: SENNA 8.6 MG TAB (SENOKOT) PO SCH (21:32)
[2020-09-09] MEDS: ATORVASTATIN 20 MG TAB PO SCH (21:32)
[2020-09-09 22:00] VITALS: BP 130/72
[2020-09-10] MEDS: LEVOTHYROXINE 50MCG TABLET (0.05MG) PO SCH (05:50)
[2020-09-10 06:00] VITALS: BP 104/59
[2020-09-10 06:25] LABS: HEMATOCRIT 26.5 % (36.0-47.0); HEMOGLOBIN 7.9 g/dl (12.0-15.5); MEAN CORPUSCULAR HEMOGLOBIN 24.4 pg (27.0-33.0); MEAN CORPUSCULAR HGB CONC 29.8 g/dl (32.0-36.5); MEAN CORPUSCULAR VOLUME 81.8 fl (80.0-96.0); PLATELET COUNT, AUTOMATED 522 10^3/uL (150-450); RED BLOOD COUNT 3.24 10^6/uL (4.00-5.40); WHITE BLOOD COUNT 13.5 10^3/uL (4.0-10.0)
[2020-09-10 06:54] LABS: ALBUMIN 1.2 GM/DL (3.2-5.2); ALT/SGPT 10 U/L (12-78); BILIRUBIN,TOTAL 0.2 MG/DL (0.2-1.0); BLOOD UREA NITROGEN 9 MG/DL (7-18); CALCIUM LEVEL 7.2 MG/DL (8.8-10.2); CARBON DIOXIDE LEVEL 30 MEQ/L (21-32); CHLORIDE LEVEL 99 MEQ/L (98-107); CREATININE FOR GFR 0.34 MG/DL (0.55-1.30); GLOMERULAR FILTRATION RATE > 60.0 (>45); GLUCOSE, FASTING 93 MG/DL (70-100); POTASSIUM SERUM 3.9 MEQ/L (3.5-5.1); SODIUM LEVEL 135 MEQ/L (136-145); TOTAL PROTEIN 5.1 GM/DL (6.4-8.2)
[2020-09-10] MEDS: HumaLOG INSULIN (NovoLOG) PER UNIT SC SCH ×4 (07:30→21:00)
[2020-09-10] MEDS: ENOXAPARIN 40MG/0.4ML SYRINGE (J1650 PER 10MG) SC SCH (08:49)
[2020-09-10] MEDS: CYANOCOBALAMIN 250 MCG TABLET PO SCH (08:50)
[2020-09-10] MEDS: oxyBUTYnin *DITROPAN XL* 5 MG TABCR PO SCH (08:50)
[2020-09-10] MEDS: GABAPENTIN 300 MG CAP PO SCH ×3 (08:50→21:21)
[2020-09-10] MEDS: ASPIRIN 81MG ENTERIC TABLET PO SCH (08:50)
[2020-09-10] MEDS: FOLIC ACID 1 MG TAB PO SCH (08:50)
[2020-09-10] MEDS: METOCLOPRAMIDE 5 MG TAB PO SCH ×2 (08:50→21:22)
[2020-09-10] MEDS: DOCUSATE SODIUM 100MG CAPSULE PO SCH ×2 (08:50→21:21)
[2020-09-10] MEDS: BUPRENORPHINE/NALOXONE 2-0.5MG SUBLINGUAL TABLET(SUBOXONE) SL SCH ×2 (08:50→21:22)
[2020-09-10] MEDS ORDERED: FUROSEMIDE 40 MG TAB PO SCH (09:00)
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
[2020-09-10] MEDS ORDERED: LIDOCAINE 1% MDV 20ML VIAL As Ordered ONE (11:20)
[2020-09-10 14:00] VITALS: BP 120/70
[2020-09-10] MEDS: PIPERACILLIN/TAZOBACTAM SOD 3.375 GM in D5W MINI-BAG PLUS 50 ML IV SCH ×2 (14:08→21:21)
[2020-09-10] MEDS: NS 1,000 ML IV SCH (15:01)
[2020-09-10] MEDS ORDERED: VANCOMYCIN HCL 1,000 MG, VIAL MATE ADAPTER 1 EACH in NS 250 ML IV ONE (16:00)
[2020-09-10] MEDS: SODIUM CHLORIDE 0.9% INJ 10 ML SYR IV SCH (17:04)
--- NOTE | 2020-09-10 17:23 | REP ---
INDICATION: poor venous access. COMPARISON: None. TECHNIQUE: The procedure was performed under the direct supervision of Dr. Hull. The risks and benefits of the procedure were explained to the patient and informed consent was obtained. The right basilic vein was localized using ultrasound guidance. The skin was prepped and draped in a sterile fashion. 2% lidocaine was used as a local anesthetic. Using ultrasound guidance the basilic vein was cannulated and a 0.018 guidewire was inserted and advanced to the SVC using fluoroscopic guidance. The needle was removed and a 5.5 Ivorian dilator and peel-away sheath was inserted over the guide wire. A 5.5 Ivorian dual lumen catheter was cut to length of 46 cm. The dilator was removed and the catheter was inserted over the guide wire with the tip ending in the SVC. The peel-away sheath was removed and the catheter was flushed with heparinized saline as per Hospital protocol. The catheter was affixed to the skin and a sterile dressing was applied. The patient tolerated the procedure well and there were no immediate complications. 1.8 minutes of fluoro time was utilized for this procedure. FINDINGS: None IMPRESSION: PICC line insertion right basilic vein with the tip ending in the SVC. <Electronically signed by Sohail Cooper > 09/10/20 1629 <Electronically signed by Bishop Hull > 09/10/20 [id number]
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
[2020-09-10] MEDS: methocarbamoL 500 MG TAB PO PRN (18:28)
[2020-09-10] MEDS: SENNA 8.6 MG TAB (SENOKOT) PO SCH (21:22)
[2020-09-10] MEDS: DULoxetine 30MG CAPSULE (CYMBALTA) PO SCH (21:22)
[2020-09-10] MEDS: ATORVASTATIN 20 MG TAB PO SCH (21:22)
[2020-09-10] MEDS: FERROUS GLUCONATE 324 MG TAB PO SCH (21:22)
[2020-09-10] MEDS: SODIUM CHLORIDE 0.9% INJ 10 ML SYR IV PRN (21:23)
[2020-09-10 22:00] VITALS: BP 121/79
[2020-09-11] MEDS: PIPERACILLIN/TAZOBACTAM SOD 3.375 GM in D5W MINI-BAG PLUS 50 ML IV SCH ×4 (02:17→21:12)
[2020-09-11] MEDS: tiZANidine 4 MG TAB PO PRN ×2 (02:17→21:18)
[2020-09-11] MEDS: NS 1,000 ML IV SCH (03:50)
[2020-09-11] MEDS ORDERED: VANCOMYCIN HCL 750 MG, VIAL MATE ADAPTER 1 EACH in NS 250 ML IV SCH (04:00)
[2020-09-11] MEDS: LEVOTHYROXINE 50MCG TABLET (0.05MG) PO SCH (05:52)
[2020-09-11] MEDS: SODIUM CHLORIDE 0.9% INJ 10 ML SYR IV SCH ×2 (05:52→17:10)
[2020-09-11 06:00] VITALS: BP 123/78
[2020-09-11 06:22] LABS: HEMATOCRIT 25.1 % (36.0-47.0); HEMOGLOBIN 7.5 g/dl (12.0-15.5); MEAN CORPUSCULAR HGB CONC 29.9 g/dl (32.0-36.5); MEAN CORPUSCULAR VOLUME 80.2 fl (80.0-96.0); PLATELET COUNT, AUTOMATED 535 10^3/uL (150-450); RED BLOOD COUNT 3.13 10^6/uL (4.00-5.40); WHITE BLOOD COUNT 12.5 10^3/uL (4.0-10.0)
[2020-09-11 06:47] LABS: ALBUMIN 1.2 GM/DL (3.2-5.2); ALT/SGPT 9 U/L (12-78); BILIRUBIN,TOTAL < 0.1 MG/DL (0.2-1.0); BLOOD UREA NITROGEN 8 MG/DL (7-18); CARBON DIOXIDE LEVEL 30 MEQ/L (21-32); CHLORIDE LEVEL 100 MEQ/L (98-107); CREATININE FOR GFR 0.28 MG/DL (0.55-1.30); GLOMERULAR FILTRATION RATE > 60.0 (>45); GLUCOSE, FASTING 108 MG/DL (70-100); POTASSIUM SERUM 3.8 MEQ/L (3.5-5.1); SODIUM LEVEL 137 MEQ/L (136-145)
[2020-09-11] MEDS: HumaLOG INSULIN (NovoLOG) PER UNIT SC SCH ×4 (08:46→21:00)
[2020-09-11] MEDS: CYANOCOBALAMIN 250 MCG TABLET PO SCH (09:15)
[2020-09-11] MEDS: FOLIC ACID 1 MG TAB PO SCH (09:15)
[2020-09-11] MEDS: GABAPENTIN 300 MG CAP PO SCH ×3 (09:15→21:11)
[2020-09-11] MEDS: DOCUSATE SODIUM 100MG CAPSULE PO SCH ×2 (09:15→21:12)
[2020-09-11] MEDS: ASPIRIN 81MG ENTERIC TABLET PO SCH (09:15)
[2020-09-11] MEDS: oxyBUTYnin *DITROPAN XL* 5 MG TABCR PO SCH (09:15)
[2020-09-11] MEDS: METOCLOPRAMIDE 5 MG TAB PO SCH ×2 (09:15→21:12)
[2020-09-11] MEDS: BUPRENORPHINE/NALOXONE 2-0.5MG SUBLINGUAL TABLET(SUBOXONE) SL SCH ×2 (09:16→21:12)
[2020-09-11] MEDS: ENOXAPARIN 40MG/0.4ML SYRINGE (J1650 PER 10MG) SC SCH (09:16)
[2020-09-11] MEDS: ONDANSETRON 4MG/2ML VIAL IV PRN (12:47)
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
[2020-09-11 14:00] VITALS: BP 111/57
--- NOTE | 2020-09-11 15:45 | CR ---
CONSULTATION DATE: 09/11/2020 ORDERED BY: Dr. Walker Telemedicine consult for advanced wound care recommendations REASON FOR CONSULTATION: Wound care recommendations for pressure injuries, stage IV, involving the sacrum and coccyx and the left and right ischial regions. Consent was obtained verbally from the patient, who was aware of the interview. Wound care telemedicine provides a visual assessment of a wound without the benefit of physical examination. It can assist with establishing a diagnosis and etiology. This allows for an initial treatment plan. As wounds often change, it may be necessary to modify the original care. Our recommendation are for periodic followup for wound reassessment and to monitor wound treatment and its progress. Failure to comply may result in nonhealing of the wound, possible complications, and/or poor outcome. On inspection patient has a coccyx sacral wound of large size, measuring 13.5 cm in length, 12.5 cm in width, and a depth of 5.2 cm. There is exposed sacral fascia without exposed bone. The drainage is heavy, serosanguineous, without odor. Wound base shows fibrin slough and superficial necrotic subcutaneous tissue. Wound edges are open in the periwound shows no erythema or ischemic changes The left ischial region shows an area of full-thickness wound, measuring 13.5 cm x 12.0 cm with a wound depth of 6.0 cm. this wound base shows necrotic tissue, which will require debridement. At the 11 o'clock position, there is a 3.0 cm tunnel. Drainage is heavy, serosanguineous. The right ischial area shows a cluster wound, measuring 9.0 cm x. 8.0 cm with a wound depth of 2.8 cm. This wound base shows fibrin slough with areas of necrotic tissue, also requiring debridement. WOUND CARE RECOMMENDATIONS: Bedside surgical debridement indicated, with of plastic surgery according to the nurse in attendance already ordered. All wounds should be cleaned with Vashe wound cleanser for 10 minutes, soaking a 4 x 4 sponge and applying it to the wound base itself. Hydrofera Blue transfer should then be placed into the wound, covered with Drawtex, and then covered with an Optilock dressing utilizing skin prep for the skin and paper tape for securing. If Drawtex is not available, 4 x 4 gauzes can be substituted until that is available. A pressure-relieving alternating mattress should be required and bilateral heel float boots for prophylactic avoidance of pressure injuries involving the heels. Both heels were inspected, and there were no areas of pressure injury noted. Patient's diet should be supplemented with Adriano and/or Glucerna, the Adriano twice a day, the Glucerna once or twice as tolerated daily. When patient is able for discharge, she can be re-evaluated at our wound clinic, as she has been a regular patient there. No indication for antibiotics for patient's wounds; however, she is on antibiotic therapy for her admitting diagnosis, which was urinary tract infection. MICHAEL
[2020-09-11] MEDS: VANCOMYCIN HCL 1,000 MG, VIAL MATE ADAPTER 1 EACH in NS 250 ML IV SCH (15:59)
[2020-09-11] MEDS: methocarbamoL 500 MG TAB PO PRN (17:14)
[2020-09-11] MEDS: SENNA 8.6 MG TAB (SENOKOT) PO SCH (21:11)
[2020-09-11] MEDS: DULoxetine 30MG CAPSULE (CYMBALTA) PO SCH (21:11)
[2020-09-11] MEDS: FERROUS GLUCONATE 324 MG TAB PO SCH (21:12)
[2020-09-11] MEDS: ATORVASTATIN 20 MG TAB PO SCH (21:12)
[2020-09-11] MEDS: SODIUM CHLORIDE 0.9% INJ 10 ML SYR IV PRN (21:19)
[2020-09-11 22:00] VITALS: BP 141/66
[2020-09-12] VITALS (15 sets, daily range): BP systolic 99–148; BP diastolic 53–88
[2020-09-12] MEDS: PIPERACILLIN/TAZOBACTAM SOD 3.375 GM in D5W MINI-BAG PLUS 50 ML IV SCH ×2 (02:56→08:25)
[2020-09-12] MEDS: VANCOMYCIN HCL 1,000 MG, VIAL MATE ADAPTER 1 EACH in NS 250 ML IV SCH (03:57)
[2020-09-12] MEDS: SODIUM CHLORIDE 0.9% INJ 10 ML SYR IV SCH ×2 (05:50→17:57)
[2020-09-12] MEDS: LEVOTHYROXINE 50MCG TABLET (0.05MG) PO SCH (05:51)
[2020-09-12 06:59] LABS: HEMATOCRIT 25.6 % (36.0-47.0); HEMOGLOBIN 7.5 g/dl (12.0-15.5); MEAN CORPUSCULAR HEMOGLOBIN 23.9 pg (27.0-33.0); MEAN CORPUSCULAR HGB CONC 29.3 g/dl (32.0-36.5); MEAN CORPUSCULAR VOLUME 81.5 fl (80.0-96.0); PLATELET COUNT, AUTOMATED 517 10^3/uL (150-450); RED BLOOD COUNT 3.14 10^6/uL (4.00-5.40); WHITE BLOOD COUNT 10.9 10^3/uL (4.0-10.0)
[2020-09-12 07:24] LABS: BLOOD UREA NITROGEN 7 MG/DL (7-18); CALCIUM LEVEL 7.6 MG/DL (8.8-10.2); CARBON DIOXIDE LEVEL 33 MEQ/L (21-32); CHLORIDE LEVEL 101 MEQ/L (98-107); CREATININE FOR GFR 0.31 MG/DL (0.55-1.30); GLOMERULAR FILTRATION RATE > 60.0 (>45); GLUCOSE, FASTING 113 MG/DL (70-100); SODIUM LEVEL 138 MEQ/L (136-145)
[2020-09-12] MEDS: HumaLOG INSULIN (NovoLOG) PER UNIT SC SCH ×4 (07:27→20:46)
[2020-09-12] MEDS: ENOXAPARIN 40MG/0.4ML SYRINGE (J1650 PER 10MG) SC SCH (08:26)
[2020-09-12] MEDS: DOCUSATE SODIUM 100MG CAPSULE PO SCH ×2 (08:26→21:27)
[2020-09-12] MEDS: ASPIRIN 81MG ENTERIC TABLET PO SCH (08:26)
[2020-09-12] MEDS: oxyBUTYnin *DITROPAN XL* 5 MG TABCR PO SCH (08:26)
[2020-09-12] MEDS: BUPRENORPHINE/NALOXONE 2-0.5MG SUBLINGUAL TABLET(SUBOXONE) SL SCH ×2 (08:26→21:27)
[2020-09-12] MEDS: METOCLOPRAMIDE 5 MG TAB PO SCH ×2 (08:26→21:27)
[2020-09-12] MEDS: CYANOCOBALAMIN 250 MCG TABLET PO SCH (08:26)
[2020-09-12] MEDS: GABAPENTIN 300 MG CAP PO SCH ×3 (08:26→21:26)
[2020-09-12] MEDS: FOLIC ACID 1 MG TAB PO SCH (08:26)
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
[2020-09-12] MEDS: FUROSEMIDE 40 MG TAB PO SCH (14:08)
[2020-09-12] MEDS: methocarbamoL 500 MG TAB PO PRN (15:15)
[2020-09-12] MEDS: ONDANSETRON 4MG/2ML VIAL IV PRN (20:35)
[2020-09-12] MEDS: SENNA 8.6 MG TAB (SENOKOT) PO SCH (21:27)
[2020-09-12] MEDS: DULoxetine 30MG CAPSULE (CYMBALTA) PO SCH (21:27)
[2020-09-12] MEDS: ATORVASTATIN 20 MG TAB PO SCH (21:27)
[2020-09-12] MEDS: FERROUS GLUCONATE 324 MG TAB PO SCH (21:27)
[2020-09-12] MEDS: tiZANidine 4 MG TAB PO PRN (21:27)
[2020-09-12] MEDS: SODIUM CHLORIDE 0.9% INJ 10 ML SYR IV PRN (21:28)
[2020-09-13] MEDS: SODIUM CHLORIDE 0.9% INJ 10 ML SYR IV SCH ×2 (05:35→16:16)
[2020-09-13] MEDS: LEVOTHYROXINE 50MCG TABLET (0.05MG) PO SCH (05:35)
[2020-09-13 06:00] VITALS: BP 129/85
[2020-09-13] MEDS: HumaLOG INSULIN (NovoLOG) PER UNIT SC SCH ×4 (07:30→21:00)
[2020-09-13 07:36] LABS: HEMATOCRIT 29.8 % (36.0-47.0); HEMOGLOBIN 9.1 g/dl (12.0-15.5); MEAN CORPUSCULAR HEMOGLOBIN 24.7 pg (27.0-33.0); MEAN CORPUSCULAR HGB CONC 30.5 g/dl (32.0-36.5); PLATELET COUNT, AUTOMATED 514 10^3/uL (150-450); RED BLOOD COUNT 3.68 10^6/uL (4.00-5.40); WHITE BLOOD COUNT 12.9 10^3/uL (4.0-10.0)
[2020-09-13 08:04] LABS: BLOOD UREA NITROGEN 5 MG/DL (7-18); CALCIUM LEVEL 7.8 MG/DL (8.8-10.2); CARBON DIOXIDE LEVEL 32 MEQ/L (21-32); CHLORIDE LEVEL 99 MEQ/L (98-107); GLOMERULAR FILTRATION RATE > 60.0 (>45); GLUCOSE, FASTING 132 MG/DL (70-100); POTASSIUM SERUM 3.5 MEQ/L (3.5-5.1); SODIUM LEVEL 136 MEQ/L (136-145)
[2020-09-13] MEDS: CYANOCOBALAMIN 250 MCG TABLET PO SCH (08:54)
[2020-09-13] MEDS: FUROSEMIDE 40 MG TAB PO SCH (08:54)
[2020-09-13] MEDS: oxyBUTYnin *DITROPAN XL* 5 MG TABCR PO SCH (08:54)
[2020-09-13] MEDS: BUPRENORPHINE/NALOXONE 2-0.5MG SUBLINGUAL TABLET(SUBOXONE) SL SCH ×2 (08:54→22:01)
[2020-09-13] MEDS: FOLIC ACID 1 MG TAB PO SCH (08:54)
[2020-09-13] MEDS: METOCLOPRAMIDE 5 MG TAB PO SCH ×2 (08:54→22:01)
[2020-09-13] MEDS: DOCUSATE SODIUM 100MG CAPSULE PO SCH ×2 (08:54→22:01)
[2020-09-13] MEDS: ASPIRIN 81MG ENTERIC TABLET PO SCH (08:54)
[2020-09-13] MEDS: GABAPENTIN 300 MG CAP PO SCH ×3 (08:54→22:00)
[2020-09-13] MEDS: ENOXAPARIN 40MG/0.4ML SYRINGE (J1650 PER 10MG) SC SCH (08:55)
[2020-09-13] MEDS ORDERED: LIDOCAINE 2% JELLY 5ML TUBE TOP ONE (09:30)
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
[2020-09-13 14:00] VITALS: BP 145/81
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
[2020-09-13] MEDS: methocarbamoL 500 MG TAB PO PRN (16:16)
[2020-09-13] MEDS: ONDANSETRON 4MG/2ML VIAL IV PRN (16:16)
[2020-09-13 22:00] VITALS: BP 137/70
[2020-09-13] MEDS: DULoxetine 30MG CAPSULE (CYMBALTA) PO SCH (22:00)
[2020-09-13] MEDS: ATORVASTATIN 20 MG TAB PO SCH (22:01)
[2020-09-13] MEDS: SENNA 8.6 MG TAB (SENOKOT) PO SCH (22:01)
[2020-09-13] MEDS: FERROUS GLUCONATE 324 MG TAB PO SCH (22:01)
[2020-09-13] MEDS: tiZANidine 4 MG TAB PO PRN (22:06)
[2020-09-14 06:00] VITALS: BP 109/58
[2020-09-14] MEDS: LEVOTHYROXINE 50MCG TABLET (0.05MG) PO SCH (06:28)
[2020-09-14] MEDS: SODIUM CHLORIDE 0.9% INJ 10 ML SYR IV SCH ×2 (06:28→17:45)
[2020-09-14 07:22] LABS: HEMATOCRIT 31.4 % (36.0-47.0); HEMOGLOBIN 9.4 g/dl (12.0-15.5); MEAN CORPUSCULAR HEMOGLOBIN 24.7 pg (27.0-33.0); MEAN CORPUSCULAR HGB CONC 29.9 g/dl (32.0-36.5); MEAN CORPUSCULAR VOLUME 82.6 fl (80.0-96.0); PLATELET COUNT, AUTOMATED 526 10^3/uL (150-450); WHITE BLOOD COUNT 13.5 10^3/uL (4.0-10.0)
[2020-09-14 07:30] LABS: BLOOD UREA NITROGEN 6 MG/DL (7-18); CALCIUM LEVEL 7.6 MG/DL (8.8-10.2); CARBON DIOXIDE LEVEL 33 MEQ/L (21-32); CHLORIDE LEVEL 98 MEQ/L (98-107); CREATININE FOR GFR 0.26 MG/DL (0.55-1.30); GLOMERULAR FILTRATION RATE > 60.0 (>45); GLUCOSE, FASTING 100 MG/DL (70-100); POTASSIUM SERUM 4.2 MEQ/L (3.5-5.1); SODIUM LEVEL 134 MEQ/L (136-145)
[2020-09-14] MEDS: HumaLOG INSULIN (NovoLOG) PER UNIT SC SCH ×4 (07:30→20:44)
[2020-09-14] MEDS: CYANOCOBALAMIN 250 MCG TABLET PO SCH (08:45)
[2020-09-14] MEDS: oxyBUTYnin *DITROPAN XL* 5 MG TABCR PO SCH (08:45)
[2020-09-14] MEDS: FUROSEMIDE 40 MG TAB PO SCH (08:45)
[2020-09-14] MEDS: ENOXAPARIN 40MG/0.4ML SYRINGE (J1650 PER 10MG) SC SCH (08:46)
[2020-09-14] MEDS: BUPRENORPHINE/NALOXONE 2-0.5MG SUBLINGUAL TABLET(SUBOXONE) SL SCH ×2 (08:46→20:39)
[2020-09-14] MEDS: GABAPENTIN 300 MG CAP PO SCH ×3 (08:46→20:38)
[2020-09-14] MEDS: methocarbamoL 500 MG TAB PO PRN ×2 (08:46→16:50)
[2020-09-14] MEDS: METOCLOPRAMIDE 5 MG TAB PO SCH ×2 (08:46→20:38)
[2020-09-14] MEDS: ASPIRIN 81MG ENTERIC TABLET PO SCH (08:46)
[2020-09-14] MEDS: FOLIC ACID 1 MG TAB PO SCH (08:46)
[2020-09-14] MEDS: DOCUSATE SODIUM 100MG CAPSULE PO SCH ×2 (08:46→20:38)
[2020-09-14 09:07] LABS: C REACTIVE PROTEIN QUANTITATIV 4.29 MG/DL (0.00-0.30)
--- NOTE | 2020-09-14 09:07 | IPNPDOC ---
Subjective General Date Seen: Sep 14, 2020 Subject Chief Complaint/History The patient is a 65-year-old female admitted with a reason for visit of UTI. Patient status post debridement of sacral and bilateral ischial wounds yesterday. Doing well today. No pain. Current Medications Current Medications Current Medications Medications (Trade) Dose Ordered Sig/Yonatan Route PRN Reason Start Time Stop Time Status Last Admin Dose Admin Acetaminophen (Tylenol Tab) 650 mg Q4HP PRN PO PAIN OR DISCOMFORT 09/07/20 21:10 09/09/20 10:16 Artificial Tears (Akwa Tears) 2 drop TID PRN OU DRY EYES 09/07/20 13:55 Aspirin (Ecotrin) 81 mg DAILY PO 09/07/20 09:00 09/14/20 08:46 Atorvastatin Calcium (Lipitor) 40 mg QHS PO 09/07/20 21:00 09/13/20 22:01 Buprenorphine/ Naloxone (Suboxone 2/ 0.5mg) 2 tab BID SL 09/07/20 21:00 09/14/20 08:46 Ceftriaxone Sodium 1 gm/ Dextrose 50 ml @ 100 mls/hr Q24H IV 09/07/20 13:00 09/07/20 14:56 DC 09/07/20 13:43 Cyanocobalamin (Vitamin B12) 250 mcg DAILY PO 09/07/20 09:00 09/14/20 08:45 Dextrose (Dextrose 50%) 25 ml ASDIRECTED PRN IV SEE LABEL COMMENTS 09/07/20 14:10 Docusate Sodium (Colace) 100 mg BID PO 09/07/20 21:00 09/14/20 08:46 Duloxetine HCl (Cymbalta) 60 mg QHS PO 09/07/20 21:00 09/13/20 22:00 Enoxaparin Sodium (Lovenox) 40 mg DAILY SC 09/08/20 09:00 09/14/20 08:46 Famotidine (Pepcid) 20 mg QHS PRN PO HEARTBURN 09/07/20 13:55 Ferrous Gluconate (Fergon) 324 mg QHS PO 09/07/20 21:00 09/13/20 22:01 Folic Acid (Folic Acid) 1 mg DAILY PO 09/07/20 09:00 09/14/20 08:46 Furosemide (Lasix) 40 mg DAILY PO 09/08/20 09:00 09/07/20 14:10 DC Furosemide (Lasix) 40 mg DAILY PO 09/10/20 09:00 09/10/20 14:40 DC 09/10/20 08:50 Furosemide (Lasix) 40 mg DAILY PO 09/12/20 09:00 09/14/20 08:45 Gabapentin (Neurontin) 900 mg TID PO 09/07/20 16:00 09/14/20 08:46 Glucagon (Glucagon) 1 mg ASDIRECTED PRN SC SEE LABEL COMMENTS 09/07/20 14:10 Glucose (Glucose) 16 GM ASDIRECTED PRN PO SEE LABEL COMMENTS 09/07/20 14:10 Heparin Sodium (Heparin (Flush)) 200 units ASDIRECTED PRN IV SEE LABEL COMMENTS 09/10/20 13:20 09/12/20 21:28 Heparin Sodium (Heparin (Flush)) 200 units PICC IV 09/10/20 18:00 09/14/20 06:28 Home Med (Med Rec Complete!) ASDIRECTED XX 09/07/20 13:00 09/07/20 13:00 DC Hydroxyzine HCl (Atarax) 25 mg TID PRN PO ANXIETY 09/07/20 13:55 Insulin Human Lispro (HumaLOG INSULIN) SEE PROTOCOL TABLE AC SC 09/07/20 17:30 Insulin Human Lispro (HumaLOG INSULIN) SEE PROTOCOL TABLE QHS SC 09/07/20 21:00 Levothyroxine Sodium (Synthroid) 50 mcg DAILY@0600 PO 09/07/20 06:00 09/14/20 06:28 Meloxicam (Mobic) 7.5 mg DAILY PO 09/07/20 09:00 09/09/20 15:16 DC 09/09/20 10:15 Methocarbamol (Robaxin) 500 mg QID PRN PO MUSCLE SPASMS 09/07/20 13:55 09/14/20 08:46 Metoclopramide HCl (Reglan) 5 mg BID PO 09/07/20 09:00 09/14/20 08:46 Ondansetron HCl (ZOFRAN INJection) 4 mg Q6HP PRN IV NAUSEA OR VOMITING 09/07/20 14:10 09/13/20 16:16 Ondansetron HCl (Zofran Odt) 4 mg DAILY PO 09/08/20 09:00 09/07/20 14:10 DC Oxybutynin Chloride (Ditropan Xl) 10 mg DAILY PO 09/09/20 17:55 09/14/20 08:48 DC 09/14/20 08:45 Piperacillin Sod/ Tazobactam Sod 3.375 gm/Dextrose 50 ml @ 50 mls/hr Q6H IV 09/10/20 14:00 09/12/20 11:09 DC 09/12/20 08:25 Piperacillin Sod/ Tazobactam Sod 3.375 gm/Dextrose 50 ml @ 50 mls/hr Q6H IV 09/07/20 16:00 09/10/20 13:24 DC 09/09/20 16:21 Polyethylene Glycol (Miralax) 1 pkt DAILY PRN PO CONSTIPATION 09/07/20 13:55 Potassium Chloride (Micro-K Extencaps) 30 meq Q4H PO 09/09/20 09:00 09/09/20 13:01 DC 09/09/20 13:45 Senna (Senokot) 1 tab QHS PO 09/07/20 21:00 09/13/20 22:01 Sodium Chloride 1,000 ml @ 85 mls/hr [id number] IV 09/10/20 14:40 09/11/20 09:38 DC 09/11/20 03:50 Sodium Chloride 1,000 ml @ 100 mls/hr Q10H IV 09/07/20 13:55 09/08/20 11:08 DC 09/08/20 05:36 Sodium Chloride (Saline Lock Flush) 10 ml ASDIRECTED PRN IV SEE LABEL COMMENTS 09/10/20 13:20 09/12/20 21:28 Sodium Chloride (Saline Lock Flush) 10 ml PICC IV 09/10/20 18:00 09/14/20 06:28 Solifenacin (Vesicare) 10 mg DAILY PO 09/14/20 09:00 UNV Tizanidine HCl (Zanaflex) 4 mg QHS PRN PO MUSCLE SPASMS 09/07/20 13:55 09/13/20 22:06 Vancomycin HCl 750 mg/IV Miscellaneous Supplies 1 each/ Sodium Chloride 275 ml @ 275 mls/hr Q12H IV 09/11/20 04:00 09/11/20 15:39 DC 09/11/20 03:48 Vancomycin HCl 1000 mg/IV Miscellaneous Supplies 1 each/ Sodium Chloride 270 ml @ 270 mls/hr Q12H IV 09/08/20 10:25 09/08/20 11:05 DC Vancomycin HCl 1000 mg/IV Miscellaneous Supplies 1 each/ Sodium Chloride 270 ml @ 270 mls/hr Q12H IV 09/09/20 00:00 09/09/20 13:43 DC 09/08/20 23:33 Vancomycin HCl 1000 mg/IV Miscellaneous Supplies 1 each/ Sodium Chloride 270 ml @ 270 mls/hr Q12H IV 09/09/20 14:00 09/10/20 15:43 DC 09/09/20 13:45 Vancomycin HCl 1000 mg/IV Miscellaneous Supplies 1 each/ Sodium Chloride 270 ml @ 270 mls/hr Q12H IV 09/11/20 16:00 09/12/20 10:32 DC 09/12/20 03:57 Allergies Coded Allergies: No Known Allergies (Unverified , 10/15/18) Objective Physical Examination Examination GENERAL APPEARANCE:Patient seen, laying in bed, awake, alert, and oriented. Comfortable, in no acute distress. SKIN: Warm and moist. Sacral wound clean granulation tissue, left ischium wound clean granulating tissue, no active bleeding. Right ischium wound clean granulating tissue, no bleeding. NECK: Supple, no thyromegaly. No obvious jugular venous distention. LUNGS: Clear to auscultation bilaterally. No wheezing appreciated. HEART: No chest wall abnormalities. Regular rate and rhythm with no murmurs appreciated. ABDOMEN: Abdomen is soft, non-tender, non-distended. I EXTREMITIES: No edema identified. No calf tenderness. Vital Signs Vital Signs Date Time Temp Pulse Resp B/P (MAP) Pulse Ox O2 Delivery O2 Flow Rate FiO2 09/14/20 06:00 96.5 94 17 109/58 (75) 95 Trach Collar 5.0 28 I&Os I&O- Last 24 Hours up to 6 AM 09/14/20 06:00 Intake Total 1780 ml Output Total 1600 ml Balance 180 ml Laboratory Data Labs 24H Laboratory Tests 2 09/13/20 11:32: Bedside Glucose (Misc Panel) 122H 09/13/20 16:49: Bedside Glucose (Misc Panel) 134H 09/13/20 21:03: Bedside Glucose (Misc Panel) 146H 09/14/20 06:03: Nucleated Red Blood Cells % (auto) 0.0, Anion Gap 3L, Glomerular Filtration Rate > 60.0, Calcium Level 7.6L CBC/BMP Laboratory Tests 09/14/20 06:03 Microbiology Microbiology 09/09/20 Genital Culture - Final, Complete Staph.aureus Methicillin Resis 09/08/20 Stool Occult Blood (PARISA) - Final, Complete 09/08/20 Wound Culture - Final, Complete Klebsiella Pneumoniae Pseudomonas Aeruginosa Bordetella Trematum Corynebacterium Species 09/07/20 Blood Culture - Final, Complete NO GROWTH AFTER 5 DAYS 09/07/20 Blood Culture - Final, Complete NO GROWTH AFTER 5 DAYS 09/07/20 Respiratory Virus Panel (PCR) (PARISA) - Final, Complete 09/07/20 Urine Culture - Final, Complete Enterobacter Aerogenes Klebsiella Pneumoniae Impression Status post debridement sacral wound stage IV, left and right ischial wound stage IV. No active bleeding. Start wound VAC therapy on a sacral wound. MFW change, 125 mmHg, granulofoam. Hydrofera Blue, to the wound bed on both ischium wounds, pack with kerlix on the top to assure contact. Off loading. Plan / VTE VTE Prophylaxis Ordered?: Yes MCKENZIE MULLEN DO Sep 14, 2020 09:07
[2020-09-14 09:29] LABS: ERYTHROCYTE SEDIMENTATION RATE 56 mm/hr (0-30)
[2020-09-14 14:00] VITALS: BP 135/76
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
[2020-09-14] MEDS: FERROUS GLUCONATE 324 MG TAB PO SCH (20:38)
[2020-09-14] MEDS: SENNA 8.6 MG TAB (SENOKOT) PO SCH (20:38)
[2020-09-14] MEDS: DULoxetine 30MG CAPSULE (CYMBALTA) PO SCH (20:38)
[2020-09-14] MEDS: ATORVASTATIN 20 MG TAB PO SCH (20:38)
[2020-09-14] MEDS: ACETAMINOPHEN TAB 650MG DOSE (2X325MG) PO PRN (20:38)
[2020-09-14] MEDS: tiZANidine 4 MG TAB PO PRN (20:40)
[2020-09-14 22:00] VITALS: BP 135/76
[2020-09-15] VITALS (7 sets, daily range): BP systolic 105–166; BP diastolic 60–86
[2020-09-15] MEDS: SODIUM CHLORIDE 0.9% INJ 10 ML SYR IV SCH ×2 (05:55→18:00)
[2020-09-15] MEDS: LEVOTHYROXINE 50MCG TABLET (0.05MG) PO SCH (05:55)
[2020-09-15] MEDS: SOLIFENACIN 5 MG TAB PO SCH (09:02)
[2020-09-15] MEDS: GABAPENTIN 300 MG CAP PO SCH ×3 (09:02→21:10)
[2020-09-15] MEDS: HumaLOG INSULIN (NovoLOG) PER UNIT SC SCH ×4 (09:02→21:08)
[2020-09-15] MEDS: FOLIC ACID 1 MG TAB PO SCH (09:03)
[2020-09-15] MEDS: DOCUSATE SODIUM 100MG CAPSULE PO SCH ×2 (09:03→21:09)
[2020-09-15] MEDS: ASPIRIN 81MG ENTERIC TABLET PO SCH (09:03)
[2020-09-15] MEDS: FUROSEMIDE 40 MG TAB PO SCH (09:03)
[2020-09-15] MEDS: METOCLOPRAMIDE 5 MG TAB PO SCH ×2 (09:03→21:09)
[2020-09-15] MEDS: ENOXAPARIN 40MG/0.4ML SYRINGE (J1650 PER 10MG) SC SCH (09:04)
[2020-09-15] MEDS: BUPRENORPHINE/NALOXONE 2-0.5MG SUBLINGUAL TABLET(SUBOXONE) SL SCH ×2 (09:04→21:10)
[2020-09-15] MEDS: CYANOCOBALAMIN 250 MCG TABLET PO SCH (09:04)
--- NOTE | 2020-09-15 09:37 | IPNPDOC ---
Subjective Review oF Systems Chief Complaint The patient is a 65-year-old female admitted with a reason for visit of UTI. Constitutional: Denies: Fever, Chills, Sweats, Weakness, Malaise Eyes: Denies: Pain, Vision change ENT: Denies: Head Aches, Sore Throat, Epistaxis Skin: Denies: Rash, Lesions, Breakdown, Nail Changes Genitourinary: Reports: Other Symptoms (Continued incontinence) Objective Physical Examination Eye Exam: PERRLA, Conjunctiva & lids normal, EOMI; No: Sclera icteric ENT EXAM: Atraumatic, Mucous membr. moist/pink, Pharynx Normal Neck Exam: Supple; No: JVD, thyromegaly Chest Exam: Clear to auscultation, Normal air movement ABDOMEN EXAM: Normal bowel sounds, Soft; No: Tenderness, Hepatospenomegaly Vital Signs/I&O Vital Signs Date Time Temp Pulse Resp B/P (MAP) Pulse Ox O2 Delivery O2 Flow Rate FiO2 09/15/20 06:00 97.2 94 17 132/71 (91) 92 Trach Collar 5.0 28 I&O- Last 24 Hours up to 6 AM 09/15/20 05:59 Intake Total 1900 ml Output Total 2050 ml Balance -150 ml Laboratory Data Labs 24H Laboratory Tests 2 09/14/20 11:39: Bedside Glucose (Misc Panel) 115 09/14/20 17:19: Bedside Glucose (Misc Panel) 122H 09/14/20 20:29: Bedside Glucose (Misc Panel) 109 09/15/20 08:38: Bedside Glucose (Misc Panel) 183H FSBS Laboratory Tests Test 09/14/20 11:39 09/14/20 17:19 09/14/20 20:29 09/15/20 08:38 Range/Units Bedside Glucose (Misc Panel) 115 122 109 183 80-115 MG/DL Microbiology Microbiology 09/09/20 Genital Culture - Final, Complete Staph.aureus Methicillin Resis 09/08/20 Stool Occult Blood ([facility]) - Final, Complete 09/08/20 Wound Culture - Final, Complete Klebsiella Pneumoniae Pseudomonas Aeruginosa Bordetella Trematum Corynebacterium Species 09/07/20 Blood Culture - Final, Complete NO GROWTH AFTER 5 DAYS 09/07/20 Blood Culture - Final, Complete NO GROWTH AFTER 5 DAYS 09/07/20 Respiratory Virus Panel (PCR) ([facility]) - Final, Complete 09/07/20 Urine Culture - Final, Complete Enterobacter Aerogenes Klebsiella Pneumoniae Assessment/Plan Date Seen The patient was seen on 09/15/20. Plan/VTE VTE Prophylaxis Ordered?: Yes Plan Nadege continues to have urinary incontinence despite a change to Vesicare 10mg. We discussed a suprapubic catheter, and she is scheduled for a followup in the clinic for a visit with Dr. Barksdale who will do the procedure. This is usually performed in the OR, so scheduling is the holdup at this time. I will try to expedite the visit and scheduling of the procedure. I stressed with the patient that even with the suprapubic catheter, she may continue to have urethral incontinence because of bladder spasms. I will discuss this with Dr. Barksdale and the interventional radiologist amd it may be possible to divert the catheter sooner. IRINA CONNELLY MD Sep 15, 2020 09:37
[2020-09-15 10:35] LABS: HEMATOCRIT 35.8 % (36.0-47.0); HEMOGLOBIN 10.7 g/dl (12.0-15.5); MEAN CORPUSCULAR HEMOGLOBIN 24.8 pg (27.0-33.0); MEAN CORPUSCULAR HGB CONC 29.9 g/dl (32.0-36.5); MEAN CORPUSCULAR VOLUME 82.9 fl (80.0-96.0); PLATELET COUNT, AUTOMATED 574 10^3/uL (150-450); RED BLOOD COUNT 4.32 10^6/uL (4.00-5.40); WHITE BLOOD COUNT 13.8 10^3/uL (4.0-10.0)
[2020-09-15 10:54] LABS: BLOOD UREA NITROGEN 7 MG/DL (7-18); CALCIUM LEVEL 8.1 MG/DL (8.8-10.2); CARBON DIOXIDE LEVEL 34 MEQ/L (21-32); CHLORIDE LEVEL 95 MEQ/L (98-107); GLOMERULAR FILTRATION RATE > 60.0 (>45); GLUCOSE, FASTING 131 MG/DL (70-100); POTASSIUM SERUM 4.2 MEQ/L (3.5-5.1); SODIUM LEVEL 135 MEQ/L (136-145)
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
--- NOTE | 2020-09-15 18:48 | IPNPDOC ---
Subjective Review oF Systems Chief Complaint The patient is a 65-year-old female admitted with a reason for visit of UTI. Nurses are unable to reinsert garcia Events since Last Encounter The 16 fr garcia was removed and staff and I were unable to reinsert it on the floor.She will therefore need to be taken to the operating room for catheter insertion. General: Reports: Normal Appetite; Denies: Fatigue, Malaise Constitutional: Denies: Fever, Chills, Sweats, Weakness, Malaise Eyes: Denies: Pain, Vision change Objective Physical Examination General Exam: Alert, No Acute Distress Eye Exam: PERRLA, Conjunctiva & lids normal, EOMI; No: Sclera icteric ENT EXAM: Atraumatic, Mucous membr. moist/pink, Pharynx Normal Neck Exam: Supple; No: JVD, thyromegaly Chest Exam: Clear to auscultation, Normal air movement ABDOMEN EXAM: Normal bowel sounds, Soft; No: Tenderness, Hepatospenomegaly Vital Signs/I&O Vital Signs Date Time Temp Pulse Resp B/P (MAP) Pulse Ox O2 Delivery O2 Flow Rate FiO2 09/15/20 14:00 98.2 96 17 130/70 (90) 94 Trach Collar 5.0 28 I&O- Last 24 Hours up to 6 AM 09/15/20 06:00 Intake Total 1900 ml Output Total 2400 ml Balance -500 ml Laboratory Data Labs 24H Laboratory Tests 2 09/14/20 20:29: Bedside Glucose (Misc Panel) 109 09/15/20 08:38: Bedside Glucose (Misc Panel) 183H 09/15/20 09:46: Nucleated Red Blood Cells % (auto) 0.0, Anion Gap 6L, Glomerular Filtration Rate > 60.0, Calcium Level 8.1L 09/15/20 11:47: Bedside Glucose (Misc Panel) 112 09/15/20 16:48: Bedside Glucose (Misc Panel) 94 CBC/BMP Laboratory Tests 09/15/20 09:46 FSBS Laboratory Tests Test 09/14/20 20:29 09/15/20 08:38 09/15/20 11:47 09/15/20 16:48 Range/Units Bedside Glucose (Misc Panel) 109 183 112 94 80-115 MG/DL Microbiology Microbiology 09/15/20 Respiratory Virus Panel (PCR) ([facility]) - Final, Complete 09/09/20 Genital Culture - Final, Complete Staph.aureus Methicillin Resis 09/08/20 Stool Occult Blood (PARISA) - Final, Complete 09/08/20 Wound Culture - Final, Complete Klebsiella Pneumoniae Pseudomonas Aeruginosa Bordetella Trematum Corynebacterium Species 09/07/20 Blood Culture - Final, Complete NO GROWTH AFTER 5 DAYS 09/07/20 Blood Culture - Final, Complete NO GROWTH AFTER 5 DAYS 09/07/20 Respiratory Virus Panel (PCR) (PARISA) - Final, Complete 09/07/20 Urine Culture - Final, Complete Enterobacter Aerogenes Klebsiella Pneumoniae Assessment/Plan Date Seen The patient was seen on 09/15/20. Plan/VTE VTE Prophylaxis Ordered?: Yes Plan Because it is just not possible to reinsert the garcia cath on the floor, she will be taken to the operating room for catheter insertion. IRINA CONNELLY MD Sep 15, 2020 18:48
[2020-09-15] MEDS ORDERED: ONDANSETRON 4MG/2ML VIAL IV PRN (19:00)
[2020-09-15] MEDS ORDERED: fentaNYL 100 MCG/2 ML INJECTION (J3010) IV PRN (19:00)
[2020-09-15] MEDS ORDERED: LR 1,000 ML IV SCH (19:00)
[2020-09-15] MEDS ORDERED: oxyCODONE 5MG TAB PO PRN (19:00)
[2020-09-15] MEDS ORDERED: dexameTHASONE 4 MG/ML 1ML VIAL (J1100 PER 1MG) As Ordered ONE (19:15)
[2020-09-15] MEDS ORDERED: fentaNYL 100 MCG/2 ML INJECTION (J3010) As Ordered ONE (19:15)
[2020-09-15] MEDS ORDERED: ONDANSETRON 4MG/2ML VIAL As Ordered ONE (19:15)
[2020-09-15] MEDS ORDERED: MIDAZOLAM INJ 2MG/2ML VIAL (J2250 PER 1MG) As Ordered ONE ×2 (19:15→19:30)
--- NOTE | 2020-09-15 19:22 | ROOPDOC ---
[facility] Report Of Operation Report of Operation DATE OF PROCEDURE: 09/15/20 PREPROCEDURE DIAGNOSES: Unable to insert Wood catheter POSTPROCEDURE DIAGNOSES: Same PROCEDURE: Cystoscopy with catheter insertion SURGEON: Rafi Jenkins MD SUPERVISOR BENZENE REFINING: [None ANESTHESIA: Gen. ESTIMATED BLOOD LOSS: Approximately 0 mL. COMPLICATIONS: None REMARKS: Severe perineal inflammation PROCEDURE NOTE: Patient is brought to the operating room because a Wood catheter could not be inserted on the floor despite numerous attempts DESCRIPTION OF PROCEDURE: Patient was placed on the table in supine position and given general anesthesia. She was then placed in lithotomy, prepped with Betadine paint and draped in aseptic manner. Timeout was performed. Cystoscopy was then performed to examine the perineal area and the urethral orifice was identified and the cystoscope was inserted. The bladder was examined and found to have a lot of catheter irritation but no tumors present. Bladder was then filled and cystoscope was removed. The patient was seen to have urine gushing from the orifice and an 18 [place] Wood catheter was inserted into this orifice and advanced to the bladder where the catheter balloon was inflated with 10 mL and connected to closed drainage. Patient was then awakened and sent to recovery room in stable condition having tolerated procedure well. RAFI JENKINS MD Sep 15, 2020 19:22
[2020-09-15] MEDS ORDERED: MIDAZOLAM INJ 2MG/2ML VIAL (J2250 PER 1MG) IV PRN (19:30)
[2020-09-15] MEDS: DULoxetine 30MG CAPSULE (CYMBALTA) PO SCH (21:09)
[2020-09-15] MEDS: FERROUS GLUCONATE 324 MG TAB PO SCH (21:10)
[2020-09-15] MEDS: SENNA 8.6 MG TAB (SENOKOT) PO SCH (21:10)
[2020-09-15] MEDS: ATORVASTATIN 20 MG TAB PO SCH (21:10)
[2020-09-15] MEDS: tiZANidine 4 MG TAB PO PRN (21:23)
[2020-09-16] VITALS (7 sets, daily range): BP systolic 106–151; BP diastolic 62–88
[2020-09-16] MEDS: SODIUM CHLORIDE 0.9% INJ 10 ML SYR IV SCH ×2 (05:30→17:35)
[2020-09-16] MEDS: LEVOTHYROXINE 50MCG TABLET (0.05MG) PO SCH (05:30)
[2020-09-16 06:22] LABS: HEMATOCRIT 29.9 % (36.0-47.0); HEMOGLOBIN 9.1 g/dl (12.0-15.5); MEAN CORPUSCULAR HGB CONC 30.4 g/dl (32.0-36.5); MEAN CORPUSCULAR VOLUME 82.1 fl (80.0-96.0); PLATELET COUNT, AUTOMATED 503 10^3/uL (150-450); RED BLOOD COUNT 3.64 10^6/uL (4.00-5.40); WHITE BLOOD COUNT 14.4 10^3/uL (4.0-10.0)
[2020-09-16 06:55] LABS: BLOOD UREA NITROGEN 8 MG/DL (7-18); CALCIUM LEVEL 7.8 MG/DL (8.8-10.2); CARBON DIOXIDE LEVEL 33 MEQ/L (21-32); CHLORIDE LEVEL 96 MEQ/L (98-107); CREATININE FOR GFR 0.31 MG/DL (0.55-1.30); GLOMERULAR FILTRATION RATE > 60.0 (>45); GLUCOSE, FASTING 108 MG/DL (70-100); SODIUM LEVEL 134 MEQ/L (136-145)
[2020-09-16] MEDS: HumaLOG INSULIN (NovoLOG) PER UNIT SC SCH ×4 (10:28→20:22)
[2020-09-16] MEDS: ASPIRIN 81MG ENTERIC TABLET PO SCH (10:51)
[2020-09-16] MEDS: METOCLOPRAMIDE 5 MG TAB PO SCH ×2 (10:51→20:30)
[2020-09-16] MEDS: DOCUSATE SODIUM 100MG CAPSULE PO SCH ×2 (10:51→20:31)
[2020-09-16] MEDS: ENOXAPARIN 40MG/0.4ML SYRINGE (J1650 PER 10MG) SC SCH (10:51)
[2020-09-16] MEDS: SOLIFENACIN 5 MG TAB PO SCH (10:51)
[2020-09-16] MEDS: GABAPENTIN 300 MG CAP PO SCH ×3 (10:52→20:30)
[2020-09-16] MEDS: FOLIC ACID 1 MG TAB PO SCH (10:52)
[2020-09-16] MEDS: FUROSEMIDE 40 MG TAB PO SCH (10:52)
[2020-09-16] MEDS: BUPRENORPHINE/NALOXONE 2-0.5MG SUBLINGUAL TABLET(SUBOXONE) SL SCH ×2 (10:52→20:30)
[2020-09-16] MEDS: CYANOCOBALAMIN 250 MCG TABLET PO SCH (10:52)
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
--- NOTE | 2020-09-16 13:07 | IPNPDOC ---
Subjective Review oF Systems Chief Complaint The patient is a 65-year-old female admitted with a reason for visit of UTI. Events since Last Encounter The patient is tolerating the 18 English catheter General: Reports: Normal Appetite; Denies: Fatigue, Malaise Constitutional: Denies: Fever, Chills, Sweats, Weakness, Malaise Genitourinary: Denies: Dysuria, Frequency, Incontinence, Hematuria Objective Physical Examination General Exam: Alert, No Acute Distress Eye Exam: PERRLA, Conjunctiva & lids normal, EOMI; No: Sclera icteric ENT EXAM: Atraumatic, Mucous membr. moist/pink, Pharynx Normal Neck Exam: Supple; No: JVD, thyromegaly Chest Exam: Clear to auscultation, Normal air movement ABDOMEN EXAM: Normal bowel sounds, Soft; No: Tenderness, Hepatospenomegaly Vital Signs/I&O Vital Signs Date Time Temp Pulse Resp B/P (MAP) Pulse Ox O2 Delivery O2 Flow Rate FiO2 09/16/20 10:00 97.4 100 17 120/70 (87) 94 Trach Collar 5.0 28 I&O- Last 24 Hours up to 6 AM 09/16/20 06:00 Intake Total 1645 ml Output Total 650 ml Balance 995 ml Laboratory Data Labs 24H Laboratory Tests 2 09/15/20 16:48: Bedside Glucose (Misc Panel) 94 09/15/20 19:56: Bedside Glucose (Misc Panel) 86 09/16/20 06:08: Nucleated Red Blood Cells % (auto) 0.0, Anion Gap 5L, Glomerular Filtration Rate > 60.0, Calcium Level 7.8L 09/16/20 12:15: Bedside Glucose (Misc Panel) 110 CBC/BMP Laboratory Tests 09/16/20 06:08 FSBS Laboratory Tests Test 09/15/20 16:48 09/15/20 19:56 09/16/20 12:15 Range/Units Bedside Glucose (Misc Panel) 94 86 110 80-115 MG/DL Microbiology Microbiology 09/15/20 Respiratory Virus Panel (PCR) ([facility]) - Final, Complete 09/09/20 Genital Culture - Final, Complete Staph.aureus Methicillin Resis 09/08/20 Stool Occult Blood ([facility]) - Final, Complete 09/08/20 Wound Culture - Final, Complete Klebsiella Pneumoniae Pseudomonas Aeruginosa Bordetella Trematum Corynebacterium Species 09/07/20 Blood Culture - Final, Complete NO GROWTH AFTER 5 DAYS 09/07/20 Blood Culture - Final, Complete NO GROWTH AFTER 5 DAYS 09/07/20 Respiratory Virus Panel (PCR) ([facility]) - Final, Complete 09/07/20 Urine Culture - Final, Complete Enterobacter Aerogenes Klebsiella Pneumoniae Assessment/Plan Date Seen The patient was seen on 09/16/20. Plan/VTE VTE Prophylaxis Ordered?: Yes Plan Patient will keep the 18 English Wood catheter until she can be discharged. She can then be followed up in the office and scheduled for suprapubic catheter. IRINA CONNELLY MD Sep 16, 2020 13:07
[2020-09-16] MEDS: tiZANidine 4 MG TAB PO PRN (20:30)
[2020-09-16] MEDS: DULoxetine 30MG CAPSULE (CYMBALTA) PO SCH (20:31)
[2020-09-16] MEDS: ATORVASTATIN 20 MG TAB PO SCH (20:31)
[2020-09-16] MEDS: ACETAMINOPHEN TAB 650MG DOSE (2X325MG) PO PRN (20:31)
[2020-09-16] MEDS: FERROUS GLUCONATE 324 MG TAB PO SCH (20:31)
[2020-09-16] MEDS: SENNA 8.6 MG TAB (SENOKOT) PO SCH (20:31)
[2020-09-17] MEDS: SODIUM CHLORIDE 0.9% INJ 10 ML SYR IV SCH ×2 (05:43→17:39)
[2020-09-17] MEDS: LEVOTHYROXINE 50MCG TABLET (0.05MG) PO SCH (05:43)
[2020-09-17 06:00] VITALS: BP 102/64
[2020-09-17] MEDS: ACETAMINOPHEN TAB 650MG DOSE (2X325MG) PO PRN ×3 (07:51→15:07)
[2020-09-17] MEDS: GABAPENTIN 300 MG CAP PO SCH ×3 (08:21→20:48)
[2020-09-17] MEDS: BUPRENORPHINE/NALOXONE 2-0.5MG SUBLINGUAL TABLET(SUBOXONE) SL SCH ×2 (08:21→20:48)
[2020-09-17] MEDS: DOCUSATE SODIUM 100MG CAPSULE PO SCH ×2 (08:21→20:48)
[2020-09-17] MEDS: CYANOCOBALAMIN 250 MCG TABLET PO SCH (08:22)
[2020-09-17] MEDS: SOLIFENACIN 5 MG TAB PO SCH (08:22)
[2020-09-17] MEDS: ASPIRIN 81MG ENTERIC TABLET PO SCH (08:22)
[2020-09-17] MEDS: FUROSEMIDE 40 MG TAB PO SCH (08:22)
[2020-09-17] MEDS: METOCLOPRAMIDE 5 MG TAB PO SCH ×2 (08:22→20:48)
[2020-09-17] MEDS: ENOXAPARIN 40MG/0.4ML SYRINGE (J1650 PER 10MG) SC SCH (08:23)
[2020-09-17] MEDS: HumaLOG INSULIN (NovoLOG) PER UNIT SC SCH ×4 (08:26→20:49)
[2020-09-17] MEDS: FOLIC ACID 1 MG TAB PO SCH (08:28)
[2020-09-17] MEDS ORDERED: ALBUTEROL SULFATE 2.5 MG/0.5 ML INH NEB SOLN NEB PRN (10:20)
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
[2020-09-17 14:00] VITALS: BP 103/59
[2020-09-17] MEDS: ONDANSETRON 4MG/2ML VIAL IV PRN (18:04)
[2020-09-17] MEDS: methocarbamoL 500 MG TAB PO PRN (18:33)
--- NOTE | 2020-09-17 19:12 | IPNPDOC ---
Subjective Review oF Systems Chief Complaint The patient is a 65-year-old female admitted with a reason for visit of Uti, Overactive Bladder. Events since Last Encounter No acute events o/n. Patient still noting bothersome bladder spasms. Her catheter that was placed in the OR on Thursday came out shortly afterward and a new one was placed on the RNF. Objective Physical Examination General Exam: Alert, Cooperative Eye Exam: No: Sclera icteric ENT EXAM: Atraumatic Neck Exam: No: JVD, thyromegaly Chest Exam: Normal air movement Heart Exam: Positive: Rate Normal ABDOMEN EXAM: No: Tenderness, Hepatospenomegaly Neuro Exam: Normal Speech Psych Exam: Mental status NL, Mood NL Other physical findings catheter draining yellow urine Vital Signs/I&O Vital Signs Date Time Temp Pulse Resp B/P (MAP) Pulse Ox O2 Delivery O2 Flow Rate FiO2 09/17/20 14:00 98.0 96 20 103/59 (74) 96 Trach Collar 5.0 28 I&O- Last 24 Hours up to 6 AM 09/17/20 06:00 Intake Total 2040 ml Output Total 751 ml Balance 1289 ml Laboratory Data Labs 24H Laboratory Tests 2 09/16/20 19:52: Bedside Glucose (Misc Panel) 149H 09/17/20 07:48: Bedside Glucose (Misc Panel) 109 09/17/20 11:38: Bedside Glucose (Misc Panel) 86 09/17/20 16:28: Bedside Glucose (Misc Panel) 139H FSBS Laboratory Tests Test 09/16/20 19:52 09/17/20 07:48 09/17/20 11:38 09/17/20 16:28 Range/Units Bedside Glucose (Misc Panel) 149 109 86 139 80-115 MG/DL Microbiology Microbiology 09/17/20 Urine Culture, Received Pending 09/15/20 Respiratory Virus Panel (PCR) ([facility]) - Final, Complete 09/09/20 Genital Culture - Final, Complete Staph.aureus Methicillin Resis 09/08/20 Stool Occult Blood ([facility]) - Final, Complete 09/08/20 Wound Culture - Final, Complete Klebsiella Pneumoniae Pseudomonas Aeruginosa Bordetella Trematum Corynebacterium Species 09/07/20 Blood Culture - Final, Complete NO GROWTH AFTER 5 DAYS 09/07/20 Blood Culture - Final, Complete NO GROWTH AFTER 5 DAYS 09/07/20 Respiratory Virus Panel (PCR) ([facility]) - Final, Complete 09/07/20 Urine Culture - Final, Complete Enterobacter Aerogenes Klebsiella Pneumoniae Assessment/Plan Date Seen The patient was seen on 09/17/20. Patient Summary This is a 65 y/o F w/ neurogenic bladder managed w/ a chronic indwelling catheter and persistent urge urinary incontinence. I discussed w/ her that she would be a good candidate for suprapubic catheter placement to make it easier for catheter changes and to somewhat decrease the frequency of UTIs. I explained that it will not likely help w/ her bladder spasms and urge incontinence. I recommended trying detrusor botox injections for this. She is willing to give this a try. We will plan to do it on . Plan/VTE VTE Prophylaxis Ordered?: Yes Plan - keep catheter to gravity drainage and place a new one if it comes out - will schedule the patient for cystoscopy w/ detrusor botox injections this and suprapubic catheter at a later date - repeat urine culture obtained today CHELA GARCIA MD Sep 17, 2020 18:31
[2020-09-17] MEDS: tiZANidine 4 MG TAB PO PRN (20:48)
[2020-09-17] MEDS: DULoxetine 30MG CAPSULE (CYMBALTA) PO SCH (20:48)
[2020-09-17] MEDS: SENNA 8.6 MG TAB (SENOKOT) PO SCH (20:49)
[2020-09-17] MEDS: FERROUS GLUCONATE 324 MG TAB PO SCH (20:49)
[2020-09-17] MEDS: ATORVASTATIN 20 MG TAB PO SCH (20:49)
[2020-09-17 22:00] VITALS: BP 131/76
[2020-09-18] MEDS: LEVOTHYROXINE 50MCG TABLET (0.05MG) PO SCH (05:55)
[2020-09-18] MEDS: SODIUM CHLORIDE 0.9% INJ 10 ML SYR IV SCH ×2 (05:56→17:38)
[2020-09-18 06:00] VITALS: BP 117/64
[2020-09-18] MEDS: HumaLOG INSULIN (NovoLOG) PER UNIT SC SCH ×4 (07:30→20:13)
[2020-09-18] MEDS: GABAPENTIN 300 MG CAP PO SCH ×3 (09:47→20:12)
[2020-09-18] MEDS: CYANOCOBALAMIN 250 MCG TABLET PO SCH (09:47)
[2020-09-18] MEDS: SOLIFENACIN 5 MG TAB PO SCH (09:47)
[2020-09-18] MEDS: METOCLOPRAMIDE 5 MG TAB PO SCH ×2 (09:47→20:13)
[2020-09-18] MEDS: ASPIRIN 81MG ENTERIC TABLET PO SCH (09:47)
[2020-09-18] MEDS: FUROSEMIDE 40 MG TAB PO SCH (09:47)
[2020-09-18] MEDS: BUPRENORPHINE/NALOXONE 2-0.5MG SUBLINGUAL TABLET(SUBOXONE) SL SCH ×2 (09:47→20:12)
[2020-09-18] MEDS: ENOXAPARIN 40MG/0.4ML SYRINGE (J1650 PER 10MG) SC SCH (09:48)
[2020-09-18] MEDS: FOLIC ACID 1 MG TAB PO SCH (09:48)
[2020-09-18] MEDS: DOCUSATE SODIUM 100MG CAPSULE PO SCH ×2 (09:51→20:12)
[2020-09-18] MEDS: ACETAMINOPHEN TAB 650MG DOSE (2X325MG) PO PRN (11:16)
[2020-09-18] MEDS ORDERED: SODIUM CHLORIDE NASAL 0.65% SPRAY BTL (OCEAN) PRN (11:20)
[2020-09-18 13:06] LABS: BASO # 0.1 10^3/uL (0.0-0.2); EOS # 1.1 10^3/uL (0.0-0.5); HEMATOCRIT 28.9 % (36.0-47.0); HEMOGLOBIN 8.8 g/dl (12.0-15.5); LYMPH # 1.9 10^3/uL (1.5-5.0); LYMPH % 13.4 % (24.0-44.0); MEAN CORPUSCULAR HEMOGLOBIN 24.9 pg (27.0-33.0); MEAN CORPUSCULAR HGB CONC 30.4 g/dl (32.0-36.5); MEAN CORPUSCULAR VOLUME 81.9 fl (80.0-96.0); MONO # 1.3 10^3/uL (0.0-0.8); MONO % 9.2 % (2.0-8.0); NEUTROPHILS # 9.5 10^3/uL (1.5-8.5); PLATELET COUNT, AUTOMATED 507 10^3/uL (150-450); RED BLOOD COUNT 3.53 10^6/uL (4.00-5.40)
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
[2020-09-18 13:47] LABS: BLOOD UREA NITROGEN 8 MG/DL (7-18); C REACTIVE PROTEIN QUANTITATIV 5.88 MG/DL (0.00-0.30); CALCIUM LEVEL 7.7 MG/DL (8.8-10.2); CARBON DIOXIDE LEVEL 34 MEQ/L (21-32); CHLORIDE LEVEL 94 MEQ/L (98-107); CREATININE FOR GFR 0.24 MG/DL (0.55-1.30); GLOMERULAR FILTRATION RATE > 60.0 (>45); GLUCOSE, FASTING 114 MG/DL (70-100); MAGNESIUM LEVEL 1.9 MG/DL (1.8-2.4); POTASSIUM SERUM 4.2 MEQ/L (3.5-5.1); SODIUM LEVEL 133 MEQ/L (136-145)
[2020-09-18 14:00] VITALS: BP 109/62
[2020-09-18] MEDS: SODIUM CHLORIDE 0.9% INJ 10 ML SYR IV PRN (18:14)
[2020-09-18] MEDS: ONDANSETRON 4MG/2ML VIAL IV PRN (18:14)
[2020-09-18] MEDS: SENNA 8.6 MG TAB (SENOKOT) PO SCH (20:12)
[2020-09-18] MEDS: ATORVASTATIN 20 MG TAB PO SCH (20:12)
[2020-09-18] MEDS: FERROUS GLUCONATE 324 MG TAB PO SCH (20:12)
[2020-09-18] MEDS: DULoxetine 30MG CAPSULE (CYMBALTA) PO SCH (20:12)
[2020-09-18] MEDS: tiZANidine 4 MG TAB PO PRN (20:12)
[2020-09-18 22:00] VITALS: BP 137/77
[2020-09-19] MEDS: ACETAMINOPHEN TAB 650MG DOSE (2X325MG) PO PRN ×2 (02:27→18:19)
[2020-09-19 06:00] VITALS: BP 102/63
[2020-09-19] MEDS: SODIUM CHLORIDE 0.9% INJ 10 ML SYR IV SCH ×2 (06:28→18:18)
[2020-09-19] MEDS: LEVOTHYROXINE 50MCG TABLET (0.05MG) PO SCH (06:28)
[2020-09-19] MEDS: ENOXAPARIN 40MG/0.4ML SYRINGE (J1650 PER 10MG) SC SCH (09:20)
[2020-09-19] MEDS: GABAPENTIN 300 MG CAP PO SCH ×3 (09:20→20:22)
[2020-09-19] MEDS: BUPRENORPHINE/NALOXONE 2-0.5MG SUBLINGUAL TABLET(SUBOXONE) SL SCH ×2 (09:21→20:22)
[2020-09-19] MEDS: CYANOCOBALAMIN 250 MCG TABLET PO SCH (09:21)
[2020-09-19] MEDS: ASPIRIN 81MG ENTERIC TABLET PO SCH (09:21)
[2020-09-19] MEDS: SOLIFENACIN 5 MG TAB PO SCH (09:21)
[2020-09-19] MEDS: DOCUSATE SODIUM 100MG CAPSULE PO SCH ×2 (09:22→20:22)
[2020-09-19] MEDS: METOCLOPRAMIDE 5 MG TAB PO SCH ×2 (09:22→20:23)
[2020-09-19] MEDS: FOLIC ACID 1 MG TAB PO SCH (09:22)
[2020-09-19] MEDS: FUROSEMIDE 40 MG TAB PO SCH (09:22)
[2020-09-19] MEDS: HumaLOG INSULIN (NovoLOG) PER UNIT SC SCH ×4 (09:24→21:00)
[2020-09-19 10:33] LABS: BASO # 0.1 10^3/uL (0.0-0.2); BASO % 0.7 % (0.0-1.0); EOS # 0.9 10^3/uL (0.0-0.5); EOS % 6.6 % (0.0-3.0); HEMATOCRIT 28.7 % (36.0-47.0); HEMOGLOBIN 8.8 g/dl (12.0-15.5); LYMPH # 1.7 10^3/uL (1.5-5.0); LYMPH % 12.5 % (24.0-44.0); MEAN CORPUSCULAR HEMOGLOBIN 25.7 pg (27.0-33.0); MEAN CORPUSCULAR HGB CONC 30.7 g/dl (32.0-36.5); MEAN CORPUSCULAR VOLUME 83.7 fl (80.0-96.0); MONO # 1.2 10^3/uL (0.0-0.8); MONO % 8.7 % (2.0-8.0); NEUTROPHILS # 9.8 10^3/uL (1.5-8.5); NEUTROPHILS % 71.1 % (36.0-66.0); PLATELET COUNT, AUTOMATED 490 10^3/uL (150-450); RED BLOOD COUNT 3.43 10^6/uL (4.00-5.40); WHITE BLOOD COUNT 13.8 10^3/uL (4.0-10.0)
[2020-09-19 10:56] LABS: BLOOD UREA NITROGEN 9 MG/DL (7-18); CALCIUM LEVEL 7.7 MG/DL (8.8-10.2); CARBON DIOXIDE LEVEL 34 MEQ/L (21-32); CHLORIDE LEVEL 95 MEQ/L (98-107); CREATININE FOR GFR 0.39 MG/DL (0.55-1.30); GLOMERULAR FILTRATION RATE > 60.0 (>45); GLUCOSE, FASTING 144 MG/DL (70-100); MAGNESIUM LEVEL 1.8 MG/DL (1.8-2.4); POTASSIUM SERUM 4.2 MEQ/L (3.5-5.1); SODIUM LEVEL 135 MEQ/L (136-145)
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
[2020-09-19 14:00] VITALS: BP 125/78
[2020-09-19] MEDS: MIRALAX *UNIT DOSE* 17GM PACKET PO PRN (18:17)
[2020-09-19] MEDS: SENNA 8.6 MG TAB (SENOKOT) PO SCH (18:18)
[2020-09-19] MEDS: DULoxetine 30MG CAPSULE (CYMBALTA) PO SCH (20:21)
[2020-09-19] MEDS: FERROUS GLUCONATE 324 MG TAB PO SCH (20:23)
[2020-09-19] MEDS: ATORVASTATIN 20 MG TAB PO SCH (20:23)
[2020-09-19] MEDS: ONDANSETRON 4MG/2ML VIAL IV PRN (20:42)
[2020-09-19] MEDS: SODIUM CHLORIDE 0.9% INJ 10 ML SYR IV PRN (20:43)
[2020-09-19 22:00] VITALS: BP 122/78
[2020-09-19] MEDS: CEFEPIME HCL 1 GM in D5W MINI-BAG PLUS 50 ML IV SCH (22:06)
[2020-09-20] MEDS: ONDANSETRON 4MG/2ML VIAL IV PRN (02:11)
[2020-09-20] MEDS: ACETAMINOPHEN TAB 650MG DOSE (2X325MG) PO PRN ×2 (05:51→18:11)
[2020-09-20] MEDS: LEVOTHYROXINE 50MCG TABLET (0.05MG) PO SCH (05:51)
[2020-09-20] MEDS: SODIUM CHLORIDE 0.9% INJ 10 ML SYR IV SCH ×2 (05:52→18:09)
[2020-09-20 06:00] VITALS: BP 126/60
[2020-09-20 07:17] LABS: BASO # 0.1 10^3/uL (0.0-0.2); BASO % 0.7 % (0.0-1.0); EOS # 0.9 10^3/uL (0.0-0.5); EOS % 5.1 % (0.0-3.0); HEMATOCRIT 30.1 % (36.0-47.0); HEMOGLOBIN 9.2 g/dl (12.0-15.5); LYMPH # 2.2 10^3/uL (1.5-5.0); LYMPH % 12.3 % (24.0-44.0); MEAN CORPUSCULAR HEMOGLOBIN 24.9 pg (27.0-33.0); MEAN CORPUSCULAR HGB CONC 30.6 g/dl (32.0-36.5); MEAN CORPUSCULAR VOLUME 81.6 fl (80.0-96.0); MONO # 1.8 10^3/uL (0.0-0.8); MONO % 9.9 % (2.0-8.0); NEUTROPHILS # 12.8 10^3/uL (1.5-8.5); NEUTROPHILS % 71.6 % (36.0-66.0); RED BLOOD COUNT 3.69 10^6/uL (4.00-5.40)
[2020-09-20 07:22] LABS: WHITE BLOOD COUNT 17.9 10^3/uL (4.0-10.0)
[2020-09-20 07:27] LABS: PLATELET COUNT, AUTOMATED 591 10^3/uL (150-450)
[2020-09-20] MEDS: HumaLOG INSULIN (NovoLOG) PER UNIT SC SCH ×4 (07:30→20:56)
[2020-09-20 07:40] LABS: BLOOD UREA NITROGEN 10 MG/DL (7-18); CALCIUM LEVEL 8.3 MG/DL (8.8-10.2); CARBON DIOXIDE LEVEL 34 MEQ/L (21-32); CHLORIDE LEVEL 94 MEQ/L (98-107); CREATININE FOR GFR 0.35 MG/DL (0.55-1.30); GLOMERULAR FILTRATION RATE > 60.0 (>45); GLUCOSE, FASTING 108 MG/DL (70-100); MAGNESIUM LEVEL 1.9 MG/DL (1.8-2.4); POTASSIUM SERUM 3.9 MEQ/L (3.5-5.1); SODIUM LEVEL 132 MEQ/L (136-145)
[2020-09-20] MEDS: ASPIRIN 81MG ENTERIC TABLET PO SCH (09:00)
[2020-09-20] MEDS: ENOXAPARIN 40MG/0.4ML SYRINGE (J1650 PER 10MG) SC SCH (09:00)
[2020-09-20] MEDS: DOCUSATE SODIUM 100MG CAPSULE PO SCH ×2 (09:00→21:01)
[2020-09-20] MEDS: FUROSEMIDE 40 MG TAB PO SCH (09:00)
[2020-09-20] MEDS: SOLIFENACIN 5 MG TAB PO SCH (09:18)
[2020-09-20] MEDS: CEFEPIME HCL 1 GM in D5W MINI-BAG PLUS 50 ML IV SCH ×2 (09:18→18:51)
[2020-09-20] MEDS: GABAPENTIN 300 MG CAP PO SCH ×3 (09:18→21:01)
[2020-09-20] MEDS: METOCLOPRAMIDE 5 MG TAB PO SCH ×2 (09:18→21:01)
[2020-09-20] MEDS: BUPRENORPHINE/NALOXONE 2-0.5MG SUBLINGUAL TABLET(SUBOXONE) SL SCH ×2 (09:18→21:01)
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
[2020-09-20] MEDS ORDERED: LIDOCAINE 2% 100MG/5ML SDV (FOR ANES.) As Ordered ONE (10:57)
[2020-09-20] MEDS ORDERED: propofoL 500 MG/50 ML VIAL As Ordered ONE (10:57)
[2020-09-20] MEDS ORDERED: MIDAZOLAM INJ 2MG/2ML VIAL (J2250 PER 1MG) As Ordered ONE (10:57)
[2020-09-20] MEDS ORDERED: ONDANSETRON 4MG/2ML VIAL As Ordered ONE (10:57)
[2020-09-20] MEDS ORDERED: fentaNYL 100 MCG/2 ML INJECTION (J3010) As Ordered ONE (10:58)
[2020-09-20] MEDS: FOLIC ACID 1 MG TAB PO SCH (11:13)
[2020-09-20] MEDS: CYANOCOBALAMIN 250 MCG TABLET PO SCH (11:13)
[2020-09-20 14:00] VITALS: BP 138/72
[2020-09-20] MEDS ORDERED: LIDOCAINE 2% 5ML JELLY UROJET As Ordered ONE (15:08)
[2020-09-20] MEDS ORDERED: BOTOX THERAPEUTIC 100 UNIT VIAL (J0585 PER 1 UNIT) As Ordered ONE ×3 (15:09→16:07)
--- NOTE | 2020-09-20 15:10 | IPNPDOC ---
Subjective Review oF Systems Chief Complaint The patient is a 65-year-old female admitted with a reason for visit of Uti, Overactive Bladder. Events since Last Encounter No acute events o/n. Objective Physical Examination General Exam: Alert, Cooperative Eye Exam: No: Sclera icteric ENT EXAM: Atraumatic Chest Exam: Normal air movement Heart Exam: Positive: Rate Normal ABDOMEN EXAM: No: Tenderness, Hepatospenomegaly Neuro Exam: Normal Speech Psych Exam: Mental status NL, Mood NL Other physical findings catheter draining yellow urine Vital Signs/I&O Vital Signs Date Time Temp Pulse Resp B/P (MAP) Pulse Ox O2 Delivery O2 Flow Rate FiO2 09/20/20 06:00 96.4 125 18 126/60 (82) 98 Trach Collar 5.0 28 I&O- Last 24 Hours up to 6 AM 09/20/20 06:00 Intake Total 1450 ml Output Total 0 ml Balance 1450 ml Laboratory Data Labs 24H Laboratory Tests 2 09/19/20 17:13: Bedside Glucose (Misc Panel) 141H 09/19/20 20:03: Bedside Glucose (Misc Panel) 196H 09/20/20 07:01: Immature Granulocyte % (Auto) 0.4, Neutrophils (%) (Auto) 71.6H, Lymphocytes (%) (Auto) 12.3L, Monocytes (%) (Auto) 9.9H, Eosinophils (%) (Auto) 5.1H, Basophils (%) (Auto) 0.7, Neutrophils # (Auto) 12.8H, Lymphocytes # (Auto) 2.2, Monocytes # (Auto) 1.8H, Eosinophils # (Auto) 0.9H, Basophils # (Auto) 0.1, Nucleated Red Blood Cells % (auto) 0.0, Anion Gap 4L, Glomerular Filtration Rate > 60.0, Calcium Level 8.3L, Magnesium Level 1.9 09/20/20 11:34: Bedside Glucose (Misc Panel) 104 CBC/BMP Laboratory Tests 09/20/20 07:01 FSBS Laboratory Tests Test 09/19/20 17:13 09/19/20 20:03 09/20/20 11:34 Range/Units Bedside Glucose (Misc Panel) 141 196 104 80-115 MG/DL Microbiology Microbiology 09/17/20 Urine Culture - Final, Complete Pseudomonas Aeruginosa Acinetobacter Baumannii Comple 09/15/20 Respiratory Virus Panel (PCR) (PARISA) - Final, Complete Assessment/Plan Date Seen The patient was seen on 09/20/20. Patient Summary This is a 65 y/o F w/ neurogenic bladder managed w/ a chronic indwelling catheter and persistent urge urinary incontinence. She is going to the OR today for cystoscopy w/ bladder botox injections. Informed consent was signed. Plan/VTE VTE Prophylaxis Ordered?: Yes Plan - to OR for cystoscopy w/ bladder botox injections - patient understands that it may take 2-3 wks for this to take effect and help w/ her incontinence - will arrange outpt f/u to see her in 2-3 wks - will get her set up for suprapubic catheter placement at that appt - NPO - on cefepime for UTI CHELA GARCIA MD Sep 20, 2020 15:10
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
[2020-09-20] MEDS ORDERED: oxyCODONE 5MG TAB PO PRN ×2 (17:10→17:45)
[2020-09-20] MEDS ORDERED: LR 1,000 ML IV SCH ×2 (17:10→17:45)
[2020-09-20] MEDS ORDERED: HYDROMORPHONE HCL 0.5 MG/ 0.5 ML SYRINGE (J1170 PER 1) IV PRN ×2 (17:10→17:45)
[2020-09-20] MEDS ORDERED: fentaNYL 100 MCG/2 ML INJECTION (J3010) IV PRN ×2 (17:10→17:45)
[2020-09-20] MEDS ORDERED: ONDANSETRON 4MG/2ML VIAL IV PRN ×2 (17:10→17:45)
[2020-09-20] MEDS: tiZANidine 4 MG TAB PO PRN (21:01)
[2020-09-20] MEDS: SENNA 8.6 MG TAB (SENOKOT) PO SCH (21:01)
[2020-09-20] MEDS: FERROUS GLUCONATE 324 MG TAB PO SCH (21:01)
[2020-09-20] MEDS: DULoxetine 30MG CAPSULE (CYMBALTA) PO SCH (21:01)
[2020-09-20] MEDS: ATORVASTATIN 20 MG TAB PO SCH (21:01)
[2020-09-20 22:00] VITALS: BP 121/76
[2020-09-20 23:25] VITALS: BP 86/50
[2020-09-20] MEDS ORDERED: NS 500 ML IV ONE (23:40)
[2020-09-21] VITALS (8 sets, daily range): BP systolic 90–128; BP diastolic 50–74
[2020-09-21] MEDS ORDERED: NS 500 ML IV ONE (00:35)
[2020-09-21 00:59] LABS: APPEARANCE, URINE CLOUDY (CLEAR); BACTERIA, URINE AUTO 1+ (NEGATIVE); BILIRUBIN, URINE AUTO NEGATIVE (NEGATIVE); BLOOD, URINE BLOOD 2+ (NEGATIVE); COLOR, URINE YELLOW (YELLOW); GLUCOSE, URINE (UA) AUTO NEGATIVE (NEGATIVE); KETONE, URINE AUTO NEGATIVE (NEGATIVE); LEUKOCYTE ESTERASE, URINE AUTO 3+ (NEGATIVE); MUCUS, URINE SMALL (NEGATIVE); NITRITE, URINE AUTO NEGATIVE (NEGATIVE); PROTEIN, URINE AUTO 1+ mg/dL (NEGATIVE); RBC, URINE AUTO 161 /HPF (0-3); SPECIFIC GRAVITY URINE AUTO 1.023 (1.002-1.035); SQUAMOUS EPITHELIAL CELL UR AU 0 /HPF (0-6); UROBILINOGEN, URINE AUTO 0.2 mg/dL (0.0-2.0); WBC, URINE AUTO TNTC /HPF (0-3)
[2020-09-21 01:02] LABS: BASO # 0.1 10^3/uL (0.0-0.2); BASO % 0.8 % (0.0-1.0); EOS # 0.9 10^3/uL (0.0-0.5); EOS % 7.3 % (0.0-3.0); HEMATOCRIT 25.9 % (36.0-47.0); HEMOGLOBIN 7.9 g/dl (12.0-15.5); LYMPH # 1.7 10^3/uL (1.5-5.0); LYMPH % 13.1 % (24.0-44.0); MEAN CORPUSCULAR HEMOGLOBIN 25.2 pg (27.0-33.0); MEAN CORPUSCULAR HGB CONC 30.5 g/dl (32.0-36.5); MEAN CORPUSCULAR VOLUME 82.7 fl (80.0-96.0); MONO # 1.4 10^3/uL (0.0-0.8); NEUTROPHILS # 8.5 10^3/uL (1.5-8.5); NEUTROPHILS % 67.5 % (36.0-66.0); PLATELET COUNT, AUTOMATED 504 10^3/uL (150-450); RED BLOOD COUNT 3.13 10^6/uL (4.00-5.40); WHITE BLOOD COUNT 12.6 10^3/uL (4.0-10.0)
[2020-09-21 01:21] LABS: ERYTHROCYTE SEDIMENTATION RATE 63 mm/hr (0-30)
[2020-09-21 01:24] LABS: BLOOD UREA NITROGEN 11 MG/DL (7-18); CALCIUM LEVEL 7.5 MG/DL (8.8-10.2); CARBON DIOXIDE LEVEL 34 MEQ/L (21-32); CHLORIDE LEVEL 99 MEQ/L (98-107); CREATININE FOR GFR 0.34 MG/DL (0.55-1.30); GLOMERULAR FILTRATION RATE > 60.0 (>45); GLUCOSE, FASTING 143 MG/DL (70-100); MAGNESIUM LEVEL 1.8 MG/DL (1.8-2.4); POTASSIUM SERUM 4.2 MEQ/L (3.5-5.1); SODIUM LEVEL 135 MEQ/L (136-145)
[2020-09-21] MEDS: CEFEPIME HCL 1 GM in D5W MINI-BAG PLUS 50 ML IV SCH ×3 (01:59→18:40)
[2020-09-21] MEDS: LEVOTHYROXINE 50MCG TABLET (0.05MG) PO SCH (05:51)
[2020-09-21] MEDS: SODIUM CHLORIDE 0.9% INJ 10 ML SYR IV SCH ×2 (05:52→18:41)
[2020-09-21 08:01] LABS: BASO # 0.1 10^3/uL (0.0-0.2); BASO % 1.1 % (0.0-1.0); EOS % 8.4 % (0.0-3.0); HEMATOCRIT 27.4 % (36.0-47.0); HEMOGLOBIN 8.3 g/dl (12.0-15.5); LYMPH # 1.8 10^3/uL (1.5-5.0); LYMPH % 14.9 % (24.0-44.0); MEAN CORPUSCULAR HEMOGLOBIN 25.2 pg (27.0-33.0); MEAN CORPUSCULAR HGB CONC 30.3 g/dl (32.0-36.5); MONO # 1.4 10^3/uL (0.0-0.8); MONO % 11.7 % (2.0-8.0); NEUTROPHILS # 7.6 10^3/uL (1.5-8.5); NEUTROPHILS % 63.4 % (36.0-66.0); PLATELET COUNT, AUTOMATED 526 10^3/uL (150-450); WHITE BLOOD COUNT 11.9 10^3/uL (4.0-10.0)
[2020-09-21] MEDS: HumaLOG INSULIN (NovoLOG) PER UNIT SC SCH ×4 (08:02→20:36)
[2020-09-21] MEDS: DOCUSATE SODIUM 100MG CAPSULE PO SCH ×2 (08:06→20:35)
[2020-09-21] MEDS: CYANOCOBALAMIN 250 MCG TABLET PO SCH (08:06)
[2020-09-21] MEDS: ASPIRIN 81MG ENTERIC TABLET PO SCH (08:07)
[2020-09-21] MEDS: GABAPENTIN 300 MG CAP PO SCH ×3 (08:07→20:35)
[2020-09-21] MEDS: FOLIC ACID 1 MG TAB PO SCH (08:07)
[2020-09-21] MEDS: METOCLOPRAMIDE 5 MG TAB PO SCH ×2 (08:07→20:35)
[2020-09-21] MEDS: ENOXAPARIN 40MG/0.4ML SYRINGE (J1650 PER 10MG) SC SCH (08:07)
[2020-09-21] MEDS: ACETAMINOPHEN TAB 650MG DOSE (2X325MG) PO PRN ×2 (08:14→15:04)
[2020-09-21 08:19] LABS: ALBUMIN 1.2 GM/DL (3.2-5.2); ALT/SGPT 9 U/L (12-78); BILIRUBIN,TOTAL 0.2 MG/DL (0.2-1.0); BLOOD UREA NITROGEN 10 MG/DL (7-18); CALCIUM LEVEL 7.7 MG/DL (8.8-10.2); CARBON DIOXIDE LEVEL 35 MEQ/L (21-32); CHLORIDE LEVEL 98 MEQ/L (98-107); CREATININE FOR GFR 0.34 MG/DL (0.55-1.30); GLOMERULAR FILTRATION RATE > 60.0 (>45); GLUCOSE, FASTING 101 MG/DL (70-100); POTASSIUM SERUM 4.5 MEQ/L (3.5-5.1); SODIUM LEVEL 135 MEQ/L (136-145); TOTAL PROTEIN 5.3 GM/DL (6.4-8.2)
--- NOTE | 2020-09-21 08:50 | IPNPDOC ---
Subjective Review oF Systems Chief Complaint The patient is a 65-year-old female admitted with a reason for visit of Uti, Overactive Bladder. Events since Last Encounter No acute events o/n. Patient notes minimal bladder pain. Per nursing, the patient has not had much (if any leakage) around the catheter o/n. Objective Physical Examination General Exam: Alert, Cooperative Eye Exam: No: Sclera icteric ENT EXAM: Atraumatic Chest Exam: Normal air movement Heart Exam: Positive: Rate Normal ABDOMEN EXAM: No: Tenderness, Hepatospenomegaly Neuro Exam: Normal Speech Psych Exam: Mental status NL, Mood NL Other physical findings 18Fr 3-way catheter in place w/ irrigation port plugged, draining yellow urine Vital Signs/I&O Vital Signs Date Time Temp Pulse Resp B/P (MAP) Pulse Ox O2 Delivery O2 Flow Rate FiO2 09/21/20 06:30 99.0 89 18 99/66 (77) 96 Trach Collar 5.0 28 I&O- Last 24 Hours up to 6 AM 09/21/20 06:00 Intake Total 2105 ml Output Total 955 ml Balance 1150 ml Laboratory Data Labs 24H Laboratory Tests 2 09/20/20 11:34: Bedside Glucose (Misc Panel) 104 09/20/20 17:45: Bedside Glucose (Misc Panel) 80 09/20/20 20:40: Bedside Glucose (Misc Panel) 188H 09/21/20 00:43: Urine Color YELLOW, Urine Appearance CLOUDYH, Urine pH 5.0, Urine Specific Silva 1.023, Urine Protein 1+H, Urine Glucose (Auto)(UA) NEGATIVE, Urine Ketones (Auto) NEGATIVE, Urine Blood 2+H, Urine Nitrite NEGATIVE, Urine Bilirubin NEGATIVE, Urine Urobilinogen 0.2, Urine Leukocyte Esterase (Auto) 3+H, Urine WBC (Auto) TNTCH, Urine RBC (Auto) 161H, Urine Hyaline Casts (Auto) 0, Urine Bacteria (Auto) 1+H, Urine Squamous Epithelial Cells 0, Urine Mucus (Auto) SMALL, Urine Sperm (Auto) 09/21/20 00:51: Immature Granulocyte % (Auto) 0.3, Neutrophils (%) (Auto) 67.5H, Lymphocytes (%) (Auto) 13.1L, Monocytes (%) (Auto) 11.0H, Eosinophils (%) (Auto) 7.3H, Basophils (%) (Auto) 0.8, Neutrophils # (Auto) 8.5, Lymphocytes # (Auto) 1.7, Monocytes # (Auto) 1.4H, Eosinophils # (Auto) 0.9H, Basophils # (Auto) 0.1, Nucleated Red Blood Cells % (auto) 0.0, Erythrocyte Sedimentation Rate 63H, Anion Gap 2L, G lomerular Filtration Rate > 60.0, Lactic Acid Level 1.9, Calcium Level 7.5L, Magnesium Level 1.8, C-Reactive Protein, Quantitative 11.80H 09/21/20 06:39: Bedside Glucose (Misc Panel) 117H 09/21/20 07:32: Immature Granulocyte % (Auto) 0.5, Neutrophils (%) (Auto) 63.4, Lymphocytes (%) (Auto) 14.9L, Monocytes (%) (Auto) 11.7H, Eosinophils (%) (Auto) 8.4H, Basophils (%) (Auto) 1.1H, Neutrophils # (Auto) 7.6, Lymphocytes # (Auto) 1.8, Monocytes # (Auto) 1.4H, Eosinophils # (Auto) 1.0H, Basophils # (Auto) 0.1, Nucleated Red Blood Cells % (auto) 0.0, Anion Gap 2L, Glomerular Filtration Rate > 60.0, Lactic Acid Level 1.6, Calcium Level 7.7L, C-Reactive Protein, Quantitative 11.40H, Total Bilirubin 0.2, Aspartate Amino Transf (AST/SGOT) 12, Alanine Aminotransferase (ALT/SGPT) 9L, Alkaline Phosphatase 124H, Total Protein 5.3L, Albumin 1.2L, Albumin/Globulin Ratio 0.3L CBC/BMP Laboratory Tests 09/21/20 00:51 09/21/20 07:32 FSBS Laboratory Tests Test 09/20/20 11:34 09/20/20 17:45 09/20/20 20:40 09/21/20 06:39 Range/Units Bedside Glucose (Misc Panel) 104 80 188 117 80-115 MG/DL Microbiology Microbiology 09/21/20 Blood Culture, Received Pending 09/21/20 Urine Culture, Received Pending 09/17/20 Urine Culture - Final, Complete Pseudomonas Aeruginosa Acinetobacter Baumannii Comple 09/15/20 Respiratory Virus Panel (PCR) (PARISA) - Final, Complete Assessment/Plan Date Seen The patient was seen on 09/21/20. Patient Summary This is a 65 y/o F w/ neurogenic bladder managed w/ a chronic indwelling catheter and persistent urge urinary incontinence, now POD1 s/p cysto w/ bladder botox injections. At the end of her procedure yesterday, I put in an 18Fr catheter w/ a 30cc balloon to see if it would help hold the catheter in and also potentially help decrease her incontinence. It seems to have helped at least o/n. Plan/VTE VTE Prophylaxis Ordered?: Yes Plan - keep catheter to gravity - when patient is discharged would recommend her [facility] use a catheter w/ a 30cc balloon for changes - vesicare stopped since we did bladder botox yesterday - suspect this will take 2-3 wks to reach full effect - my office will arrange f/u in 2-3 wks CHELA GARCIA MD Sep 21, 2020 08:50
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
[2020-09-21] MEDS: BUPRENORPHINE/NALOXONE 2-0.5MG SUBLINGUAL TABLET(SUBOXONE) SL SCH ×2 (11:01→20:35)
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
--- NOTE | 2020-09-21 19:41 | IPN ---
PROGRESS NOTE DATE: 09/21/2020 SUBJECTIVE: Nadege is complaining of low back pain and bladder spasms and she was upset because she could not get her Suboxone this morning as she was hypotensive. She denies any nausea, vomiting or diarrhea. She states since the Botox yesterday for her bladder spasms, her spasms seemed to have improved. She has had no fever or chills. Temperature is 99, pulse 89, respirations 18, blood pressure 99/66, O2 saturation 96% on 28% FiO2 trach color. Heart: Normal S1, S2, no murmurs, rubs or gallops. Lungs are clear. No wheezes, rales or rhonchi. Abdomen: Morbidly obese, soft, nontender with colostomy in left lower quadrant with hard stool. Extremities: +1 pitting edema bilaterally. No heel decubitus ulcers. Sacrum with very large decubitus ulcer with a very large defect involving over 20 cm of the sacral area. There is no purulent drainage. There is good granulation tissue. She also has bilateral ulcers of the posterior thighs, right and left also measuring about 6 x 7 cm, both are nice and clean without any evidence of infection. There is granulation tissue, no surrounding cellulitis. Wood catheter in place. There is a large amount of fluid around the wound VAC and maturation of the skin from the wound VAC area and leakage with some purplish discoloration where the wound VAC was. IMPRESSION: 1. Urinary tract infection with Pseudomonas aeruginosa, Acetobacter baumannii catheter associated on IV cefepime 1 gm every 8 hours. 2. Stage IV sacral and thigh decubitus ulcers without any evidence of infection at this time, status post debridement. Case was discussed with Dr. Reed regarding having a muscle flap n [facility] by plastic surgery. This hopefully will be arranged as an outpatient, as I do not see any hopes of these wounds healing without a muscle flap. 3. Bladder spasms, status post Botox and change of Wood due to leakage, improving. LABORATORY DATA: White 11.9, hemoglobin 8.3, hematocrit 26.4, platelets 526, 63% neutrophils, 15% lymphocytes, 11% monocytes. Sodium 135, potassium 4.5, chloride 98, bicarbonate 35, BUN 10, creatinine 0.34, glucose 101, lactic acid 1.6, calcium 7.7, AST 12, ALT 9, alkaline phosphatase 124, C-reactive protein 11.4. PLAN: Continue 10 days of IV antibiotics, currently day 3 of IV cefepime. Plan to discontinue antibiotics on September 28.
[2020-09-21] MEDS: tiZANidine 4 MG TAB PO PRN (20:34)
[2020-09-21] MEDS: FERROUS GLUCONATE 324 MG TAB PO SCH (20:35)
[2020-09-21] MEDS: DULoxetine 30MG CAPSULE (CYMBALTA) PO SCH (20:35)
[2020-09-21] MEDS: ATORVASTATIN 20 MG TAB PO SCH (20:35)
[2020-09-21] MEDS: SENNA 8.6 MG TAB (SENOKOT) PO SCH (20:35)
[2020-09-22] VITALS (13 sets, daily range): BP systolic 88–133; BP diastolic 46–79
[2020-09-22] MEDS: CEFEPIME HCL 1 GM in D5W MINI-BAG PLUS 50 ML IV SCH ×3 (02:42→17:05)
[2020-09-22] MEDS: LEVOTHYROXINE 50MCG TABLET (0.05MG) PO SCH (05:35)
[2020-09-22] MEDS: SODIUM CHLORIDE 0.9% INJ 10 ML SYR IV SCH ×2 (05:36→17:05)
[2020-09-22 07:02] LABS: BASO # 0.1 10^3/uL (0.0-0.2); BASO % 1.2 % (0.0-1.0); EOS # 1.3 10^3/uL (0.0-0.5); EOS % 11.4 % (0.0-3.0); HEMATOCRIT 26.5 % (36.0-47.0); HEMOGLOBIN 7.9 g/dl (12.0-15.5); LYMPH # 2.2 10^3/uL (1.5-5.0); LYMPH % 18.6 % (24.0-44.0); MEAN CORPUSCULAR HEMOGLOBIN 25.1 pg (27.0-33.0); MEAN CORPUSCULAR HGB CONC 29.8 g/dl (32.0-36.5); MEAN CORPUSCULAR VOLUME 84.1 fl (80.0-96.0); MONO # 1.3 10^3/uL (0.0-0.8); MONO % 11.5 % (2.0-8.0); NEUTROPHILS # 6.5 10^3/uL (1.5-8.5); NEUTROPHILS % 56.8 % (36.0-66.0); PLATELET COUNT, AUTOMATED 534 10^3/uL (150-450); RED BLOOD COUNT 3.15 10^6/uL (4.00-5.40); WHITE BLOOD COUNT 11.5 10^3/uL (4.0-10.0)
[2020-09-22 07:21] LABS: BLOOD UREA NITROGEN 12 MG/DL (7-18); CARBON DIOXIDE LEVEL 35 MEQ/L (21-32); CHLORIDE LEVEL 95 MEQ/L (98-107); CREATININE FOR GFR 0.35 MG/DL (0.55-1.30); GLOMERULAR FILTRATION RATE > 60.0 (>45); GLUCOSE, FASTING 131 MG/DL (70-100); MAGNESIUM LEVEL 1.9 MG/DL (1.8-2.4); POTASSIUM SERUM 4.5 MEQ/L (3.5-5.1); SODIUM LEVEL 134 MEQ/L (136-145)
[2020-09-22] MEDS: HumaLOG INSULIN (NovoLOG) PER UNIT SC SCH ×4 (07:30→21:00)
[2020-09-22] MEDS: BUPRENORPHINE/NALOXONE 2-0.5MG SUBLINGUAL TABLET(SUBOXONE) SL SCH ×2 (08:02→21:19)
[2020-09-22] MEDS ORDERED: tiZANidine 4 MG TAB PO PRN (09:00)
[2020-09-22] MEDS: METOCLOPRAMIDE 5 MG TAB PO SCH ×2 (10:18→21:18)
[2020-09-22] MEDS: ASPIRIN 81MG ENTERIC TABLET PO SCH (10:18)
[2020-09-22] MEDS: ENOXAPARIN 40MG/0.4ML SYRINGE (J1650 PER 10MG) SC SCH (10:20)
[2020-09-22] MEDS: DOCUSATE SODIUM 100MG CAPSULE PO SCH ×2 (10:21→21:18)
[2020-09-22] MEDS: CYANOCOBALAMIN 250 MCG TABLET PO SCH (10:22)
[2020-09-22] MEDS: GABAPENTIN 300 MG CAP PO SCH ×3 (10:22→21:19)
[2020-09-22] MEDS: FOLIC ACID 1 MG TAB PO SCH (10:23)
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
--- NOTE | 2020-09-22 13:51 | IPNPDOC ---
Subjective Review oF Systems Chief Complaint The patient is a 65-year-old female admitted with a reason for visit of Uti, Overactive Bladder. Events since Last Encounter Botox injection 2 days ago General: Reports: Normal Appetite; Denies: Fatigue, Malaise Constitutional: Denies: Fever, Chills, Sweats, Weakness, Malaise Eyes: Denies: Pain, Vision change ENT: Denies: Head Aches, Sore Throat, Epistaxis Skin: Denies: Rash, Lesions, Jaundice, Bruising, Itching, Dry, Breakdown, Nail Changes, Other Pulmonary: Denies: Dyspnea, Cough Cardiovascular: Denies Chest Pain, Denies Palpitations Gastrointestinal: Denies: Nausea, Vomiting, Abdominal Pain Genitourinary: Denies: Dysuria, Frequency, Incontinence, Hematuria Endocrine: Denies: Polydipsia, Polyphagia, Polyuria Musculoskeletal: Denies: Neck Pain, Back Pain Objective Physical Examination General Exam: Alert, Cooperative Eye Exam: No: Sclera icteric ENT EXAM: Atraumatic Chest Exam: Normal air movement Heart Exam: Positive: Rate Normal ABDOMEN EXAM: No: Tenderness, Hepatospenomegaly Neuro Exam: Normal Speech Psych Exam: Mental status NL, Mood NL Vital Signs/I&O Vital Signs Date Time Temp Pulse Resp B/P (MAP) Pulse Ox O2 Delivery O2 Flow Rate FiO2 09/22/20 10:00 97.7 96 14 108/68 (81) 96 Trach Collar 5.0 28 I&O- Last 24 Hours up to 6 AM 09/22/20 06:00 Intake Total 1740 ml Output Total 1275 ml Balance 465 ml Laboratory Data Labs 24H Laboratory Tests 2 09/21/20 17:29: Bedside Glucose (Misc Panel) 116H 09/21/20 20:04: Bedside Glucose (Misc Panel) 158H 09/22/20 06:07: Immature Granulocyte % (Auto) 0.5, Neutrophils (%) (Auto) 56.8, Lymphocytes (%) (Auto) 18.6L, Monocytes (%) (Auto) 11.5H, Eosinophils (%) (Auto) 11.4H, Basophils (%) (Auto) 1.2H, Neutrophils # (Auto) 6.5, Lymphocytes # (Auto) 2.2, Monocytes # (Auto) 1.3H, Eosinophils # (Auto) 1.3H, Basophils # (Auto) 0.1, Nucleated Red Blood Cells % (auto) 0.0, Anion Gap 4L, Glomerular Filtration Rate > 60.0, Calcium Level 8.0L, Magnesium Level 1.9, C-Reactive Protein, Quantitative 13.40H 09/22/20 11:40: Bedside Glucose (Misc Panel) 130H CBC/BMP Laboratory Tests 09/22/20 06:07 FSBS Laboratory Tests Test 09/21/20 17:29 09/21/20 20:04 09/22/20 11:40 Range/Units Bedside Glucose (Misc Panel) 116 158 130 80-115 MG/DL Microbiology Microbiology 09/21/20 Blood Culture - Preliminary, Resulted No growth after 24 hours . All specim... 09/21/20 Urine Culture, Received Pending 09/17/20 Urine Culture - Final, Complete Pseudomonas Aeruginosa Acinetobacter Baumannii Comple 09/15/20 Respiratory Virus Panel (PCR) (PARISA) - Final, Complete Assessment/Plan Date Seen The patient was seen on 09/22/20. 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 She is tolerating the catheter well. No need for further urologic intervention at this time and will continue with the urethral Wood catheter. IRINA CONNELLY MD Sep 22, 2020 13:51
[2020-09-22] MEDS ORDERED: NS 500 ML IV ONE ×2 (14:15→14:50)
[2020-09-22 15:37] LABS: BASO # 0.1 10^3/uL (0.0-0.2); BASO % 0.9 % (0.0-1.0); EOS # 1.2 10^3/uL (0.0-0.5); HEMATOCRIT 25.7 % (36.0-47.0); HEMOGLOBIN 7.7 g/dl (12.0-15.5); LYMPH # 2.1 10^3/uL (1.5-5.0); LYMPH % 17.4 % (24.0-44.0); MEAN CORPUSCULAR VOLUME 83.4 fl (80.0-96.0); MONO # 1.4 10^3/uL (0.0-0.8); MONO % 11.8 % (2.0-8.0); NEUTROPHILS % 59.5 % (36.0-66.0); PLATELET COUNT, AUTOMATED 510 10^3/uL (150-450); RED BLOOD COUNT 3.08 10^6/uL (4.00-5.40); WHITE BLOOD COUNT 11.8 10^3/uL (4.0-10.0)
[2020-09-22 16:07] LABS: BLOOD UREA NITROGEN 12 MG/DL (7-18); CALCIUM LEVEL 7.7 MG/DL (8.8-10.2); CARBON DIOXIDE LEVEL 36 MEQ/L (21-32); CHLORIDE LEVEL 98 MEQ/L (98-107); GLOMERULAR FILTRATION RATE > 60.0 (>45); GLUCOSE, FASTING 121 MG/DL (70-100); POTASSIUM SERUM 4.4 MEQ/L (3.5-5.1); SODIUM LEVEL 135 MEQ/L (136-145)
[2020-09-22] MEDS: SENNA 8.6 MG TAB (SENOKOT) PO SCH (21:18)
[2020-09-22] MEDS: DULoxetine 30MG CAPSULE (CYMBALTA) PO SCH (21:18)
[2020-09-22] MEDS: FERROUS GLUCONATE 324 MG TAB PO SCH (21:18)
[2020-09-22] MEDS: ATORVASTATIN 20 MG TAB PO SCH (21:19)
[2020-09-23] VITALS (7 sets, daily range): BP systolic 111–140; BP diastolic 68–89
[2020-09-23] MEDS: CEFEPIME HCL 1 GM in D5W MINI-BAG PLUS 50 ML IV SCH ×3 (02:41→17:30)
[2020-09-23] MEDS: ACETAMINOPHEN TAB 650MG DOSE (2X325MG) PO PRN ×2 (03:44→15:48)
[2020-09-23] MEDS ORDERED: tiZANidine 4 MG TAB PO ONE (04:25)
[2020-09-23] MEDS: SODIUM CHLORIDE 0.9% INJ 10 ML SYR IV SCH ×2 (05:39→17:30)
[2020-09-23] MEDS: LEVOTHYROXINE 50MCG TABLET (0.05MG) PO SCH (05:39)
[2020-09-23 07:16] LABS: BASO # 0.1 10^3/uL (0.0-0.2); BASO % 1.2 % (0.0-1.0); EOS # 1.3 10^3/uL (0.0-0.5); EOS % 11.2 % (0.0-3.0); HEMATOCRIT 31.4 % (36.0-47.0); LYMPH # 1.8 10^3/uL (1.5-5.0); MEAN CORPUSCULAR HEMOGLOBIN 27.2 pg (27.0-33.0); MEAN CORPUSCULAR HGB CONC 31.8 g/dl (32.0-36.5); MEAN CORPUSCULAR VOLUME 85.6 fl (80.0-96.0); MONO # 1.3 10^3/uL (0.0-0.8); MONO % 11.6 % (2.0-8.0); NEUTROPHILS # 6.7 10^3/uL (1.5-8.5); NEUTROPHILS % 59.7 % (36.0-66.0); PLATELET COUNT, AUTOMATED 518 10^3/uL (150-450); RED BLOOD COUNT 3.67 10^6/uL (4.00-5.40); WHITE BLOOD COUNT 11.2 10^3/uL (4.0-10.0)
[2020-09-23] MEDS: HumaLOG INSULIN (NovoLOG) PER UNIT SC SCH ×4 (07:30→21:00)
[2020-09-23 07:36] LABS: BLOOD UREA NITROGEN 10 MG/DL (7-18); C REACTIVE PROTEIN QUANTITATIV 8.44 MG/DL (0.00-0.30); CALCIUM LEVEL 7.4 MG/DL (8.8-10.2); CARBON DIOXIDE LEVEL 32 MEQ/L (21-32); CHLORIDE LEVEL 97 MEQ/L (98-107); GLOMERULAR FILTRATION RATE > 60.0 (>45); GLUCOSE, FASTING 104 MG/DL (70-100); POTASSIUM SERUM 4.5 MEQ/L (3.5-5.1); SODIUM LEVEL 134 MEQ/L (136-145)
[2020-09-23] MEDS ORDERED: methocarbamoL 500 MG TAB PO PRN (08:00)
[2020-09-23] MEDS: METOCLOPRAMIDE 5 MG TAB PO SCH ×2 (08:23→21:05)
[2020-09-23] MEDS: FOLIC ACID 1 MG TAB PO SCH (08:23)
[2020-09-23] MEDS: BUPRENORPHINE/NALOXONE 2-0.5MG SUBLINGUAL TABLET(SUBOXONE) SL SCH ×2 (08:23→21:06)
[2020-09-23] MEDS: ASPIRIN 81MG ENTERIC TABLET PO SCH (08:23)
[2020-09-23] MEDS: CYANOCOBALAMIN 250 MCG TABLET PO SCH (08:23)
[2020-09-23] MEDS: DOCUSATE SODIUM 100MG CAPSULE PO SCH ×2 (08:23→21:05)
[2020-09-23] MEDS: ENOXAPARIN 40MG/0.4ML SYRINGE (J1650 PER 10MG) SC SCH (08:23)
[2020-09-23] MEDS: GABAPENTIN 300 MG CAP PO SCH ×3 (08:23→21:05)
[2020-09-23] MEDS: MIRALAX *UNIT DOSE* 17GM PACKET PO PRN (08:28)
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
[2020-09-23] MEDS ORDERED: FUROSEMIDE 20 MG TAB PO SCH (09:00)
[2020-09-23] MEDS: NYSTATIN 100,000 UNITS/GM TOPICAL PWD 15 GM TOP SCH ×2 (11:19→21:06)
[2020-09-23] MEDS: POLYVINYL ALCOHOL OPHTH SOLN 15 ML(LIQUITEARS) OU PRN (11:51)
[2020-09-23] MEDS: SODIUM CHLORIDE 0.9% INJ 10 ML SYR IV PRN (11:51)
[2020-09-23] MEDS: ONDANSETRON 4MG/2ML VIAL IV PRN (12:27)
[2020-09-23] MEDS ORDERED: tiZANidine 4 MG TAB PO SCH (21:00)
[2020-09-23] MEDS: FERROUS GLUCONATE 324 MG TAB PO SCH (21:05)
[2020-09-23] MEDS: DULoxetine 30MG CAPSULE (CYMBALTA) PO SCH (21:05)
[2020-09-23] MEDS: ATORVASTATIN 20 MG TAB PO SCH (21:05)
[2020-09-23] MEDS: SENNA 8.6 MG TAB (SENOKOT) PO SCH (21:05)
[2020-09-24 02:00] VITALS: BP 117/61
[2020-09-24] MEDS: CEFEPIME HCL 1 GM in D5W MINI-BAG PLUS 50 ML IV SCH ×3 (03:11→17:28)
[2020-09-24] MEDS: SODIUM CHLORIDE 0.9% INJ 10 ML SYR IV SCH ×2 (05:49→17:26)
[2020-09-24] MEDS: ACETAMINOPHEN TAB 650MG DOSE (2X325MG) PO PRN ×2 (05:49→20:00)
[2020-09-24] MEDS: LEVOTHYROXINE 50MCG TABLET (0.05MG) PO SCH (05:49)
[2020-09-24 06:00] VITALS: BP 111/67
[2020-09-24 07:27] LABS: BASO # 0.1 10^3/uL (0.0-0.2); BASO % 0.9 % (0.0-1.0); EOS # 1.2 10^3/uL (0.0-0.5); EOS % 10.1 % (0.0-3.0); HEMATOCRIT 35.8 % (36.0-47.0); HEMOGLOBIN 11.2 g/dl (12.0-15.5); LYMPH # 1.8 10^3/uL (1.5-5.0); LYMPH % 15.3 % (24.0-44.0); MEAN CORPUSCULAR HEMOGLOBIN 26.9 pg (27.0-33.0); MEAN CORPUSCULAR HGB CONC 31.3 g/dl (32.0-36.5); MEAN CORPUSCULAR VOLUME 85.9 fl (80.0-96.0); MONO % 13.9 % (2.0-8.0); NEUTROPHILS # 7.1 10^3/uL (1.5-8.5); NEUTROPHILS % 59.4 % (36.0-66.0); PLATELET COUNT, AUTOMATED 621 10^3/uL (150-450); RED BLOOD COUNT 4.17 10^6/uL (4.00-5.40)
[2020-09-24] MEDS: HumaLOG INSULIN (NovoLOG) PER UNIT SC SCH ×4 (07:30→21:00)
[2020-09-24 07:33] LABS: BLOOD UREA NITROGEN 9 MG/DL (7-18); C REACTIVE PROTEIN QUANTITATIV 8.82 MG/DL (0.00-0.30); CALCIUM LEVEL 7.9 MG/DL (8.8-10.2); CARBON DIOXIDE LEVEL 35 MEQ/L (21-32); CHLORIDE LEVEL 97 MEQ/L (98-107); CREATININE FOR GFR 0.33 MG/DL (0.55-1.30); GLOMERULAR FILTRATION RATE > 60.0 (>45); GLUCOSE, FASTING 99 MG/DL (70-100); POTASSIUM SERUM 4.4 MEQ/L (3.5-5.1); SODIUM LEVEL 135 MEQ/L (136-145)
[2020-09-24 08:20] LABS: MONO # 1.7 10^3/uL (0.0-0.8)
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
[2020-09-24] MEDS: METOCLOPRAMIDE 5 MG TAB PO SCH ×2 (09:49→20:01)
[2020-09-24] MEDS: CYANOCOBALAMIN 250 MCG TABLET PO SCH (09:49)
[2020-09-24] MEDS: DOCUSATE SODIUM 100MG CAPSULE PO SCH ×2 (09:49→20:00)
[2020-09-24] MEDS: FOLIC ACID 1 MG TAB PO SCH (09:49)
[2020-09-24] MEDS: FUROSEMIDE 20 MG TAB PO SCH (09:50)
[2020-09-24] MEDS: tiZANidine 4 MG TAB PO PRN ×2 (09:50→20:03)
[2020-09-24] MEDS: BUPRENORPHINE/NALOXONE 2-0.5MG SUBLINGUAL TABLET(SUBOXONE) SL SCH ×2 (09:50→20:01)
[2020-09-24] MEDS: GABAPENTIN 300 MG CAP PO SCH ×3 (09:50→20:00)
[2020-09-24] MEDS: ENOXAPARIN 40MG/0.4ML SYRINGE (J1650 PER 10MG) SC SCH (09:51)
[2020-09-24] MEDS: ASPIRIN 81MG ENTERIC TABLET PO SCH (09:51)
[2020-09-24] MEDS: NYSTATIN 100,000 UNITS/GM TOPICAL PWD 15 GM TOP SCH ×2 (09:52→20:03)
[2020-09-24 10:00] VITALS: BP 111/67
[2020-09-24] MEDS: SODIUM CHLORIDE 0.9% INJ 10 ML SYR IV PRN (10:51)
[2020-09-24 14:00] VITALS: BP 105/59
[2020-09-24 18:00] VITALS: BP 113/67
[2020-09-24] MEDS: DULoxetine 30MG CAPSULE (CYMBALTA) PO SCH (20:00)
[2020-09-24] MEDS: SENNA 8.6 MG TAB (SENOKOT) PO SCH (20:00)
[2020-09-24] MEDS: FERROUS GLUCONATE 324 MG TAB PO SCH (20:01)
[2020-09-24] MEDS: ATORVASTATIN 20 MG TAB PO SCH (20:01)
[2020-09-24 22:00] VITALS: BP 102/63
[2020-09-25] MEDS: CEFEPIME HCL 1 GM in D5W MINI-BAG PLUS 50 ML IV SCH ×3 (03:16→17:09)
[2020-09-25] MEDS: LEVOTHYROXINE 50MCG TABLET (0.05MG) PO SCH (05:57)
[2020-09-25] MEDS: ACETAMINOPHEN TAB 650MG DOSE (2X325MG) PO PRN ×2 (05:57→17:10)
[2020-09-25] MEDS: SODIUM CHLORIDE 0.9% INJ 10 ML SYR IV SCH ×2 (05:59→17:18)
[2020-09-25 06:00] VITALS: BP 113/73
[2020-09-25 07:11] LABS: BASO # 0.1 10^3/uL (0.0-0.2); BASO % 1.3 % (0.0-1.0); EOS # 0.9 10^3/uL (0.0-0.5); EOS % 8.6 % (0.0-3.0); HEMATOCRIT 33.1 % (36.0-47.0); HEMOGLOBIN 10.3 g/dl (12.0-15.5); LYMPH # 1.9 10^3/uL (1.5-5.0); LYMPH % 17.6 % (24.0-44.0); MEAN CORPUSCULAR HEMOGLOBIN 26.5 pg (27.0-33.0); MEAN CORPUSCULAR HGB CONC 31.1 g/dl (32.0-36.5); MEAN CORPUSCULAR VOLUME 85.3 fl (80.0-96.0); MONO # 1.5 10^3/uL (0.0-0.8); MONO % 14.2 % (2.0-8.0); NEUTROPHILS # 6.2 10^3/uL (1.5-8.5); NEUTROPHILS % 57.7 % (36.0-66.0); PLATELET COUNT, AUTOMATED 529 10^3/uL (150-450); RED BLOOD COUNT 3.88 10^6/uL (4.00-5.40)
[2020-09-25 07:14] LABS: WHITE BLOOD COUNT 10.7 10^3/uL (4.0-10.0)
[2020-09-25] MEDS: HumaLOG INSULIN (NovoLOG) PER UNIT SC SCH ×4 (07:30→20:55)
[2020-09-25 07:33] LABS: BLOOD UREA NITROGEN 11 MG/DL (7-18); CALCIUM LEVEL 7.7 MG/DL (8.8-10.2); CARBON DIOXIDE LEVEL 33 MEQ/L (21-32); CHLORIDE LEVEL 97 MEQ/L (98-107); CREATININE FOR GFR 0.27 MG/DL (0.55-1.30); GLOMERULAR FILTRATION RATE > 60.0 (>45); GLUCOSE, FASTING 99 MG/DL (70-100); POTASSIUM SERUM 4.2 MEQ/L (3.5-5.1); SODIUM LEVEL 134 MEQ/L (136-145)
[2020-09-25] MEDS: DOCUSATE SODIUM 100MG CAPSULE PO SCH ×2 (09:21→20:35)
[2020-09-25] MEDS: METOCLOPRAMIDE 5 MG TAB PO SCH ×2 (09:21→20:35)
[2020-09-25] MEDS: GABAPENTIN 300 MG CAP PO SCH ×3 (09:21→20:35)
[2020-09-25] MEDS: CYANOCOBALAMIN 250 MCG TABLET PO SCH (09:22)
[2020-09-25] MEDS: FUROSEMIDE 20 MG TAB PO SCH (09:22)
[2020-09-25] MEDS: BUPRENORPHINE/NALOXONE 2-0.5MG SUBLINGUAL TABLET(SUBOXONE) SL SCH ×2 (09:22→20:35)
[2020-09-25] MEDS: FOLIC ACID 1 MG TAB PO SCH (09:22)
[2020-09-25] MEDS: ASPIRIN 81MG ENTERIC TABLET PO SCH (09:22)
[2020-09-25] MEDS: ENOXAPARIN 40MG/0.4ML SYRINGE (J1650 PER 10MG) SC SCH (09:22)
[2020-09-25] MEDS: NYSTATIN 100,000 UNITS/GM TOPICAL PWD 15 GM TOP SCH ×2 (09:23→21:52)
[2020-09-25] MEDS: tiZANidine 4 MG TAB PO PRN ×2 (09:25→21:52)
[2020-09-25] MEDS: POLYVINYL ALCOHOL OPHTH SOLN 15 ML(LIQUITEARS) OU PRN (09:33)
[2020-09-25 10:00] VITALS: BP 114/71
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
[2020-09-25 14:00] VITALS: BP 106/56
[2020-09-25] MEDS: ONDANSETRON 4MG/2ML VIAL IV PRN (17:09)
[2020-09-25] MEDS: FERROUS GLUCONATE 324 MG TAB PO SCH (20:35)
[2020-09-25] MEDS: DULoxetine 30MG CAPSULE (CYMBALTA) PO SCH (20:35)
[2020-09-25] MEDS: ATORVASTATIN 20 MG TAB PO SCH (20:35)
[2020-09-25] MEDS: SENNA 8.6 MG TAB (SENOKOT) PO SCH (20:35)
[2020-09-25 22:00] VITALS: BP 118/52
[2020-09-26 02:00] VITALS: BP 109/55
[2020-09-26] MEDS: CEFEPIME HCL 1 GM in D5W MINI-BAG PLUS 50 ML IV SCH ×3 (02:41→17:42)
[2020-09-26] MEDS: SODIUM CHLORIDE 0.9% INJ 10 ML SYR IV PRN (02:42)
[2020-09-26] MEDS: SODIUM CHLORIDE 0.9% INJ 10 ML SYR IV SCH ×2 (05:21→17:43)
[2020-09-26] MEDS: LEVOTHYROXINE 50MCG TABLET (0.05MG) PO SCH (05:29)
[2020-09-26 06:00] VITALS: BP 102/57
[2020-09-26 08:18] LABS: BASO # 0.1 10^3/uL (0.0-0.2); BASO % 1.3 % (0.0-1.0); EOS % 9.3 % (0.0-3.0); HEMATOCRIT 31.6 % (36.0-47.0); LYMPH % 18.2 % (24.0-44.0); MEAN CORPUSCULAR HEMOGLOBIN 27.1 pg (27.0-33.0); MEAN CORPUSCULAR HGB CONC 31.6 g/dl (32.0-36.5); MEAN CORPUSCULAR VOLUME 85.6 fl (80.0-96.0); MONO # 1.4 10^3/uL (0.0-0.8); MONO % 13.2 % (2.0-8.0); NEUTROPHILS # 6.3 10^3/uL (1.5-8.5); NEUTROPHILS % 57.5 % (36.0-66.0); PLATELET COUNT, AUTOMATED 526 10^3/uL (150-450); RED BLOOD COUNT 3.69 10^6/uL (4.00-5.40); WHITE BLOOD COUNT 10.9 10^3/uL (4.0-10.0)
[2020-09-26 08:51] LABS: ALBUMIN 1.1 GM/DL (3.2-5.2); ALT/SGPT 10 U/L (12-78); BILIRUBIN,TOTAL < 0.1 MG/DL (0.2-1.0); BLOOD UREA NITROGEN 11 MG/DL (7-18); CALCIUM LEVEL 7.9 MG/DL (8.8-10.2); CARBON DIOXIDE LEVEL 33 MEQ/L (21-32); CHLORIDE LEVEL 97 MEQ/L (98-107); CREATININE FOR GFR 0.22 MG/DL (0.55-1.30); GLOMERULAR FILTRATION RATE > 60.0 (>45); GLUCOSE, FASTING 99 MG/DL (70-100); POTASSIUM SERUM 4.6 MEQ/L (3.5-5.1); SODIUM LEVEL 134 MEQ/L (136-145); TOTAL PROTEIN 5.5 GM/DL (6.4-8.2)
[2020-09-26 09:30] VITALS: BP 114/68
[2020-09-26] MEDS: GABAPENTIN 300 MG CAP PO SCH ×3 (09:31→20:18)
[2020-09-26] MEDS: METOCLOPRAMIDE 5 MG TAB PO SCH ×2 (09:31→20:18)
[2020-09-26] MEDS: DOCUSATE SODIUM 100MG CAPSULE PO SCH ×2 (09:31→20:18)
[2020-09-26] MEDS: ENOXAPARIN 40MG/0.4ML SYRINGE (J1650 PER 10MG) SC SCH (09:31)
[2020-09-26] MEDS: BUPRENORPHINE/NALOXONE 2-0.5MG SUBLINGUAL TABLET(SUBOXONE) SL SCH ×2 (09:31→20:18)
[2020-09-26] MEDS: ASPIRIN 81MG ENTERIC TABLET PO SCH (09:32)
[2020-09-26] MEDS: FUROSEMIDE 20 MG TAB PO SCH (09:32)
[2020-09-26] MEDS: HumaLOG INSULIN (NovoLOG) PER UNIT SC SCH ×4 (09:32→20:19)
[2020-09-26] MEDS: FOLIC ACID 1 MG TAB PO SCH (09:32)
[2020-09-26] MEDS: CYANOCOBALAMIN 250 MCG TABLET PO SCH (09:32)
[2020-09-26] MEDS: tiZANidine 4 MG TAB PO PRN ×2 (09:33→20:18)
[2020-09-26] MEDS: NYSTATIN 100,000 UNITS/GM TOPICAL PWD 15 GM TOP SCH ×2 (09:33→20:19)
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
--- NOTE | 2020-09-26 11:01 | IPNPDOC ---
Subjective General Date Seen: Sep 26, 2020 Subject Chief Complaint/History The patient is a 65-year-old female admitted with a reason for visit of Uti, Overactive Bladder. Patient seen and examined at the bedside to evaluate wound progress. She has garcia with diversion in place. Colostomy functioning. Patient states she is feeling ok. Current Medications Current Medications Current Medications Medications (Trade) Dose Ordered Sig/Yonatan Route PRN Reason Start Time Stop Time Status Last Admin Dose Admin Acetaminophen (Tylenol Tab) 650 mg Q4HP PRN PO PAIN OR DISCOMFORT 09/07/20 21:10 09/25/20 17:10 Albuterol Sulfate (Proventil Neb) 2.5 mg Q6HP PRN NEB SOB/WHEEZING 09/17/20 10:20 Artificial Tears (Akwa Tears) 2 drop TID PRN OU DRY EYES 09/07/20 13:55 09/25/20 09:33 Aspirin (Ecotrin) 81 mg DAILY PO 09/07/20 09:00 09/26/20 09:32 Atorvastatin Calcium (Lipitor) 40 mg QHS PO 09/07/20 21:00 09/25/20 20:35 Buprenorphine/ Naloxone (Suboxone 2/ 0.5mg) 2 tab BID SL 09/07/20 21:00 09/26/20 09:31 Cefepime HCl 1 gm/ Dextrose 50 ml @ 100 mls/hr Q12H IV 09/19/20 21:00 09/20/20 18:32 DC 09/20/20 09:18 Cefepime HCl 1 gm/ Dextrose 50 ml @ 100 mls/hr Q8H IV 09/20/20 18:25 09/26/20 09:31 Ceftriaxone Sodium 1 gm/ Dextrose 50 ml @ 100 mls/hr Q24H IV 09/07/20 13:00 09/07/20 14:56 DC 09/07/20 13:43 Cyanocobalamin (Vitamin B12) 250 mcg DAILY PO 09/07/20 09:00 09/26/20 09:32 Dextrose (Dextrose 50%) 25 ml ASDIRECTED PRN IV SEE LABEL COMMENTS 09/07/20 14:10 Docusate Sodium (Colace) 100 mg BID PO 09/07/20 21:00 09/26/20 09:31 Duloxetine HCl (Cymbalta) 60 mg QHS PO 09/07/20 21:00 09/25/20 20:35 Enoxaparin Sodium (Lovenox) 40 mg DAILY SC 09/08/20 09:00 09/26/20 09:31 Famotidine (Pepcid) 20 mg QHS PRN PO HEARTBURN 09/07/20 13:55 Fentanyl Citrate (Sublimaze) 25 mcg Q5MP PRN IV PAIN LEVEL 5-10 09/15/20 19:00 09/15/20 20:30 DC Fentanyl Citrate (Sublimaze) 25 mcg Q5MP PRN IV PAIN LEVEL 5-10 09/20/20 17:10 09/20/20 18:10 DC Fentanyl Citrate (Sublimaze) 25 mcg Q5MP PRN IV PAIN LEVEL 5-10 09/20/20 17:45 09/20/20 18:45 DC Ferrous Gluconate (Fergon) 324 mg QHS PO 09/07/20 21:00 09/25/20 20:35 Folic Acid (Folic Acid) 1 mg DAILY PO 09/07/20 09:00 09/26/20 09:32 Furosemide (Lasix) 20 mg DAILY PO 09/23/20 09:00 09/24/20 08:53 DC 09/23/20 11:18 Furosemide (Lasix) 40 mg DAILY PO 09/08/20 09:00 09/07/20 14:10 DC Furosemide (Lasix) 40 mg DAILY PO 09/10/20 09:00 09/10/20 14:40 DC 09/10/20 08:50 Furosemide (Lasix) 40 mg DAILY PO 09/12/20 09:00 09/21/20 07:14 DC 09/19/20 09:22 Furosemide (Lasix) 40 mg DAILY PO 09/24/20 09:00 09/26/20 09:32 Gabapentin (Neurontin) 900 mg TID PO 09/07/20 16:00 09/26/20 09:31 Glucagon (Glucagon) 1 mg ASDIRECTED PRN SC SEE LABEL COMMENTS 09/07/20 14:10 Glucose (Glucose) 16 GM ASDIRECTED PRN PO SEE LABEL COMMENTS 09/07/20 14:10 Heparin Sodium (Heparin (Flush)) 200 units ASDIRECTED PRN IV SEE LABEL COMMENTS 09/10/20 13:20 09/21/20 15:43 DC 09/19/20 20:42 Heparin Sodium (Heparin (Flush)) 200 units ASDIRECTED PRN IV SEE LABEL COMMENTS 09/21/20 16:00 09/26/20 02:42 Heparin Sodium (Heparin (Flush)) 200 units PICC IV 09/10/20 18:00 09/21/20 15:43 DC 09/21/20 05:51 Heparin Sodium (Heparin (Flush)) 200 units PICC IV 09/21/20 18:00 09/25/20 17:18 Home Med (Med Rec Complete!) ASDIRECTED XX 09/07/20 13:00 09/07/20 13:00 DC Hydromorphone HCl (Dilaudid) 0.2 mg Q5MP PRN IV PAIN LEVEL 4-7 09/20/20 17:10 09/20/20 18:10 DC Hydromorphone HCl (Dilaudid) 0.2 mg Q5MP PRN IV PAIN LEVEL 4-7 09/20/20 17:45 09/20/20 18:45 DC Hydroxyzine HCl (Atarax) 25 mg TID PRN PO ANXIETY 09/07/20 13:55 Insulin Human Lispro (HumaLOG INSULIN) SEE PROTOCOL TABLE AC SC 09/07/20 17:30 09/23/20 17:30 Insulin Human Lispro (HumaLOG INSULIN) SEE PROTOCOL TABLE QHS SC 09/07/20 21:00 Lactated Ringer's 1,000 ml @ 100 mls/hr Q10H IV 09/15/20 19:00 09/15/20 20:30 DC Lactated Ringer's 1,000 ml @ 100 mls/hr Q10H IV 09/20/20 17:10 09/20/20 18:10 DC Lactated Ringer's 1,000 ml @ 100 mls/hr Q10H IV 09/20/20 17:45 09/20/20 18:45 DC Levothyroxine Sodium (Synthroid) 50 mcg DAILY@0600 PO 09/07/20 06:00 09/26/20 05:29 Meloxicam (Mobic) 7.5 mg DAILY PO 09/07/20 09:00 09/09/20 15:16 DC 09/09/20 10:15 Methocarbamol (Robaxin) 500 mg Q6HP PRN PO spasms 09/23/20 08:00 09/24/20 07:29 DC Methocarbamol (Robaxin) 500 mg QID PRN PO MUSCLE SPASMS 09/07/20 13:55 09/22/20 15:18 DC 09/17/20 18:33 Metoclopramide HCl (Reglan) 5 mg BID PO 09/07/20 09:00 09/26/20 09:31 Midazolam HCl (Versed) 1 mg ASDIRECTED PRN IV Q5 MIN ..MAY REPEAT X1 09/15/20 19:30 09/15/20 20:15 DC 09/15/20 19:33 Nystatin (Mycostatin Powder, Nystop) APPLY UNDER RI... BID TOP 09/23/20 09:00 09/26/20 09:33 Ondansetron HCl (ZOFRAN INJection) 4 mg Q4HP PRN IV NAUSEA OR VOMITING 09/15/20 19:00 09/15/20 20:30 DC Ondansetron HCl (ZOFRAN INJection) 4 mg Q4HP PRN IV NAUSEA OR VOMITING 09/20/20 17:10 09/20/20 18:10 DC Ondansetron HCl (ZOFRAN INJection) 4 mg Q4HP PRN IV NAUSEA OR VOMITING 09/20/20 17:45 09/20/20 18:45 DC Ondansetron HCl (ZOFRAN INJection) 4 mg Q6HP PRN IV NAUSEA OR VOMITING 09/07/20 14:10 09/25/20 17:09 Ondansetron HCl (Zofran Odt) 4 mg DAILY PO 09/08/20 09:00 09/07/20 14:10 DC Oxybutynin Chloride (Ditropan Xl) 10 mg DAILY PO 09/09/20 17:55 09/14/20 08:48 DC 09/14/20 08:45 Oxycodone HCl (Roxicodone, Oxyir) 5 mg ASDIRECTED PRN PO PAIN LEVEL 1-4 09/15/20 19:00 09/15/20 20:30 DC Oxycodone HCl (Roxicodone, Oxyir) 5 mg ASDIRECTED PRN PO PAIN LEVEL 1-4 09/20/20 17:10 09/20/20 18:10 DC 09/20/20 17:18 Oxycodone HCl (Roxicodone, Oxyir) 5 mg ASDIRECTED PRN PO PAIN LEVEL 1-4 09/20/20 17:45 09/20/20 18:45 DC Piperacillin Sod/ Tazobactam Sod 3.375 gm/Dextrose 50 ml @ 50 mls/hr Q6H IV 09/10/20 14:00 09/12/20 11:09 DC 09/12/20 08:25 Piperacillin Sod/ Tazobactam Sod 3.375 gm/Dextrose 50 ml @ 50 mls/hr Q6H IV 09/07/20 16:00 09/10/20 13:24 DC 09/09/20 16:21 Polyethylene Glycol (Miralax) 1 pkt DAILY PRN PO CONSTIPATION 09/07/20 13:55 09/23/20 08:28 Potassium Chloride (Micro-K Extencaps) 30 meq Q4H PO 09/09/20 09:00 09/09/20 13:01 DC 09/09/20 13:45 Senna (Senokot) 1 tab QHS PO 09/07/20 21:00 09/25/20 20:35 Sodium Chloride 1,000 ml @ 85 mls/hr [id number] IV 09/10/20 14:40 09/11/20 09:38 DC 09/11/20 03:50 Sodium Chloride 1,000 ml @ 100 mls/hr Q10H IV 09/07/20 13:55 09/08/20 11:08 DC 09/08/20 05:36 Sodium Chloride ([place] Nasal [place]) 2 spray Q2HP PRN NA NASAL DRYNESS 09/18/20 11:20 Sodium Chloride (Sal[place] Lock Flush) 10 ml ASDIRECTED PRN IV SEE LABEL COMMENTS 09/10/20 13:20 09/21/20 15:43 DC 09/19/20 20:43 Sodium Chloride (Saline Lock Flush) 10 ml ASDIRECTED PRN IV SEE LABEL COMMENTS 09/21/20 16:00 09/26/20 02:42 Sodium Chloride (Saline Lock Flush) 10 ml PICC IV 09/10/20 18:00 09/21/20 15:43 DC 09/21/20 05:52 Sodium Chloride (Saline Lock Flush) 10 ml PICC IV 09/21/20 18:00 09/25/20 17:18 Solifenacin (Vesicare) 10 mg DAILY PO 09/15/20 09:00 09/20/20 18:00 DC 09/20/20 09:18 Tizanidine HCl (Zanaflex) 4 mg BIDP PRN PO spasms 09/24/20 07:30 09/26/20 09:33 Tizanidine HCl (Zanaflex) 4 mg Q8HP PRN PO SPASMS 09/22/20 09:00 09/22/20 15:18 DC 09/22/20 10:41 Tizanidine HCl (Zanaflex) 4 mg QHS PO 09/23/20 21:00 09/24/20 07:29 DC 09/23/20 21:05 Tizanidine HCl (Zanaflex) 4 mg QHS PRN PO MUSCLE SPASMS 09/07/20 13:55 09/22/20 08:15 DC 09/21/20 20:34 Vancomycin HCl 750 mg/IV Miscellaneous Supplies 1 each/ Sodium Chloride 275 ml @ 275 mls/hr Q12H IV 09/11/20 04:00 09/11/20 15:39 DC 09/11/20 03:48 Vancomycin HCl 1000 mg/IV Miscellaneous Supplies 1 each/ Sodium Chloride 270 ml @ 270 mls/hr Q12H IV 09/08/20 10:25 09/08/20 11:05 DC Vancomycin HCl 1000 mg/IV Miscellaneous Supplies 1 each/ Sodium Chloride 270 ml @ 270 mls/hr Q12H IV 09/09/20 00:00 09/09/20 13:43 DC 09/08/20 23:33 Vancomycin HCl 1000 mg/IV Miscellaneous Supplies 1 each/ Sodium Chloride 270 ml @ 270 mls/hr Q12H IV 09/09/20 14:00 09/10/20 15:43 DC 09/09/20 13:45 Vancomycin HCl 1000 mg/IV Miscellaneous Supplies 1 each/ Sodium Chloride 270 ml @ 270 mls/hr Q12H IV 09/11/20 16:00 09/12/20 10:32 DC 09/12/20 03:57 Allergies Coded Allergies: No Known Allergies (Unverified , 10/15/18) Objective Physical Examination Examination GENERAL APPEARANCE:Patient seen, laying in bed, awake, alert, and oriented. Comfortable, in no acute distress. SKIN: Warm and moist. Stage 4 sacrum: 14.4x8.5x5cm, undermining 8.4 cm at 8 o'clock with clean granulating tissue. Left Ischial stage 4: [id number], LUNGS: Clear to auscultation bilaterally. No wheezing appreciated. HEART: No chest wall abnormalities. Regular rate and rhythm with no murmurs appreciated. ABDOMEN: Abdomen is soft, non-tender, non-distended. EXTREMITIES: No edema identified. No calf tenderness. Vital Signs Vital Signs Date Time Temp Pulse Resp B/P (MAP) Pulse Ox O2 Delivery O2 Flow Rate FiO2 09/26/20 09:30 114/68 (83) 09/26/20 06:00 97.2 72 19 98 Trach Collar 09/26/20 02:00 5.0 28 I&Os I&O- Last 24 Hours up to 6 AM 09/26/20 05:59 Intake Total 1260 ml Output Total 675 ml Balance 585 ml Laboratory Data Labs 24H Laboratory Tests 2 09/25/20 11:35: Bedside Glucose (Misc Panel) 130H 09/25/20 16:22: Bedside Glucose (Misc Panel) 133H 09/25/20 20:54: Bedside Glucose (Misc Panel) 175H 09/26/20 06:32: Bedside Glucose (Misc Panel) 131H 09/26/20 08:06: Immature Granulocyte % (Auto) 0.5, Neutrophils (%) (Auto) 57.5, Lymphocytes (%) (Auto) 18.2L, Monocytes (%) (Auto) 13.2H, Eosinophils (%) (Auto) 9.3H, Basophils (%) (Auto) 1.3H, Neutrophils # (Auto) 6.3, Lymphocytes # (Auto) 2.0, Monocytes # (Auto) 1.4H, Eosinophils # (Auto) 1.0H, Basophils # (Auto) 0.1, Nucleated Red Blood Cells % (auto) 0.0, Anion Gap 4L, Glomerular Filtration Rate > 60.0, Calcium Level 7.9L, Total Bilirubin < 0.1L, Aspartate Amino Transf (AST/SGOT) 13, Alanine Aminotransferase (ALT/SGPT) 10L, Alkaline Phosphatase 124H, C- Reactive Protein, Quantitative 10.20H, Total Protein 5.5L, Albumin 1.1L, Albumin/Globulin Ratio 0.3L CBC/BMP Laboratory Tests 09/26/20 08:06 Microbiology Microbiology 09/21/20 Blood Culture - Final, Complete NO GROWTH AFTER 5 DAYS 09/21/20 Urine Culture - Final, Complete 09/17/20 Urine Culture - Final, Complete Pseudomonas Aeruginosa Acinetobacter Baumannii Comple Impression Pressure wound stage 4 sacrum, stage 4 left ischium and stage 3 right ischium. All wounds are clean. Continue with local wound therapy. Improve nutritional status (albumin 1.1) Off loading. Wound vac therapy for sacrum and left ischium. 125 mm Hg continuous, change 3 times a week and prn. Right ischium: hydrofera blue daily and prn. F/up with wound care center after discharge. Plan / VTE VTE Prophylaxis Ordered?: Yes MCKENZIE MULLEN DO Sep 26, 2020 11:01
[2020-09-26 14:00] VITALS: BP 98/59
--- NOTE | 2020-09-26 14:49 | REP ---
INDICATION: swelling, eval dvt COMPARISON: None. TECHNIQUE: Real time compression and duplex Doppler evaluation of the Left upper extremity deep venous system is performed. FINDINGS: The Left subclavian, jugular, axillary, brachial, basilic and cephalic veins are fully compressible where accessible with transducer pressure, and demonstrate no intraluminal thrombus and normal venous waveforms. There is no evidence of deep venous thrombosis. IMPRESSION: No evidence of deep venous thrombosis of the Left upper extremity deep vein system. <Electronically signed by Bishop Hull > 09/26/20 [id number]
--- NOTE | 2020-09-26 15:23 | REP ---
INDICATION: swelling. COMPARISON: None. TECHNIQUE: AP and lateral views of the left forearm are obtained. FINDINGS: AP and lateral views of the left forearm demonstrate diffuse soft tissue swelling particularly over the dorsal aspect of the mid and proximal forearm. No fracture or erosive changes seen. No soft tissue gas is seen. Mild olecranon process spurring is noted.. . No opaque foreign body noted. IMPRESSION: Diffuse soft tissue swelling about the forearm. Mild proximal ulnar spurring. No acute bony abnormality.. <Electronically signed by Mario Winslow > 09/26/20 [id number]
--- NOTE | 2020-09-26 15:24 | REP ---
INDICATION: swelling. COMPARISON: None. TECHNIQUE: Left humerus, 3 views. FINDINGS: AP and lateral views of the left humerus demonstrate normal bones, joints, and soft tissues. No fracture or subluxation is seen. No opaque foreign body noted. The glenohumeral and acromioclavicular joints are normally aligned. Elbow articulation is normally aligned. IMPRESSION: No acute bony abnormality.. <Electronically signed by Mario Winslow > 09/26/20 [id number]
[2020-09-26 19:15] VITALS: BP 116/70
[2020-09-26] MEDS: ATORVASTATIN 20 MG TAB PO SCH (20:17)
[2020-09-26] MEDS: DULoxetine 30MG CAPSULE (CYMBALTA) PO SCH (20:17)
[2020-09-26] MEDS: SENNA 8.6 MG TAB (SENOKOT) PO SCH (20:18)
[2020-09-26] MEDS: FERROUS GLUCONATE 324 MG TAB PO SCH (20:18)
[2020-09-26] MEDS: MIRALAX *UNIT DOSE* 17GM PACKET PO PRN (20:20)
[2020-09-26 22:00] VITALS: BP 112/71
[2020-09-27 02:00] VITALS: BP 101/58
[2020-09-27] MEDS: CEFEPIME HCL 1 GM in D5W MINI-BAG PLUS 50 ML IV SCH ×3 (02:50→17:21)
[2020-09-27] MEDS: LEVOTHYROXINE 50MCG TABLET (0.05MG) PO SCH (05:53)
[2020-09-27] MEDS: SODIUM CHLORIDE 0.9% INJ 10 ML SYR IV SCH ×2 (05:53→17:21)
[2020-09-27 06:00] VITALS: BP 117/64
[2020-09-27] MEDS: HumaLOG INSULIN (NovoLOG) PER UNIT SC SCH ×4 (07:30→20:32)
[2020-09-27] MEDS: ENOXAPARIN 40MG/0.4ML SYRINGE (J1650 PER 10MG) SC SCH (09:35)
[2020-09-27] MEDS: ASPIRIN 81MG ENTERIC TABLET PO SCH (09:35)
[2020-09-27] MEDS: METOCLOPRAMIDE 5 MG TAB PO SCH ×2 (09:35→20:40)
[2020-09-27] MEDS: GABAPENTIN 300 MG CAP PO SCH ×3 (09:35→20:40)
[2020-09-27] MEDS: BUPRENORPHINE/NALOXONE 2-0.5MG SUBLINGUAL TABLET(SUBOXONE) SL SCH ×2 (09:36→20:40)
[2020-09-27] MEDS: CYANOCOBALAMIN 250 MCG TABLET PO SCH (09:36)
[2020-09-27] MEDS: FOLIC ACID 1 MG TAB PO SCH (09:36)
[2020-09-27] MEDS: tiZANidine 4 MG TAB PO PRN ×2 (09:36→21:40)
[2020-09-27] MEDS: DOCUSATE SODIUM 100MG CAPSULE PO SCH ×2 (09:36→20:40)
[2020-09-27] MEDS: FUROSEMIDE 20 MG TAB PO SCH (09:36)
[2020-09-27] MEDS: NYSTATIN 100,000 UNITS/GM TOPICAL PWD 15 GM TOP SCH ×2 (09:37→20:41)
[2020-09-27] MEDS: SODIUM CHLORIDE 0.9% INJ 10 ML SYR IV PRN (09:37)
[2020-09-27 09:44] VITALS: BP 124/76
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
[2020-09-27] MEDS: ACETAMINOPHEN TAB 650MG DOSE (2X325MG) PO PRN (12:46)
[2020-09-27 14:00] VITALS: BP 108/57
[2020-09-27] MEDS: POLYVINYL ALCOHOL OPHTH SOLN 15 ML(LIQUITEARS) OU PRN (15:25)
[2020-09-27 17:26] VITALS: BP 107/56
[2020-09-27] MEDS: MIRALAX *UNIT DOSE* 17GM PACKET PO PRN (20:39)
[2020-09-27] MEDS: SENNA 8.6 MG TAB (SENOKOT) PO SCH (20:40)
[2020-09-27] MEDS: DULoxetine 30MG CAPSULE (CYMBALTA) PO SCH (20:40)
[2020-09-27] MEDS: FERROUS GLUCONATE 324 MG TAB PO SCH (20:40)
[2020-09-27] MEDS: ATORVASTATIN 20 MG TAB PO SCH (20:40)
[2020-09-27 22:00] VITALS: BP 120/56
[2020-09-28 02:00] VITALS: BP 106/57
[2020-09-28] MEDS: CEFEPIME HCL 1 GM in D5W MINI-BAG PLUS 50 ML IV SCH (03:03)
[2020-09-28] MEDS: LEVOTHYROXINE 50MCG TABLET (0.05MG) PO SCH (05:41)
[2020-09-28] MEDS: ENOXAPARIN 40MG/0.4ML SYRINGE (J1650 PER 10MG) SC SCH (05:41)
[2020-09-28] MEDS: DOCUSATE SODIUM 100MG CAPSULE PO SCH ×2 (05:41→21:54)
[2020-09-28] MEDS: SODIUM CHLORIDE 0.9% INJ 10 ML SYR IV SCH (05:41)
[2020-09-28] MEDS: FOLIC ACID 1 MG TAB PO SCH (05:41)
[2020-09-28] MEDS: ASPIRIN 81MG ENTERIC TABLET PO SCH (05:41)
[2020-09-28] MEDS: METOCLOPRAMIDE 5 MG TAB PO SCH ×2 (05:41→21:54)
[2020-09-28] MEDS: BUPRENORPHINE/NALOXONE 2-0.5MG SUBLINGUAL TABLET(SUBOXONE) SL SCH ×2 (05:42→21:54)
[2020-09-28] MEDS: GABAPENTIN 300 MG CAP PO SCH ×3 (05:42→21:54)
[2020-09-28] MEDS: CYANOCOBALAMIN 250 MCG TABLET PO SCH (05:43)
[2020-09-28] MEDS: FUROSEMIDE 20 MG TAB PO SCH (05:43)
[2020-09-28] MEDS: NYSTATIN 100,000 UNITS/GM TOPICAL PWD 15 GM TOP SCH ×2 (05:44→21:55)
[2020-09-28 06:00] VITALS: BP 129/63
[2020-09-28] MEDS: HumaLOG INSULIN (NovoLOG) PER UNIT SC SCH ×4 (07:30→21:00)
[2020-09-28] MEDS: tiZANidine 4 MG TAB PO PRN ×2 (08:52→19:37)
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
[2020-09-28] MEDS: ACETAMINOPHEN TAB 650MG DOSE (2X325MG) PO PRN ×2 (13:28→19:34)
[2020-09-28 14:00] VITALS: BP 110/59
[2020-09-28] MEDS: FERROUS GLUCONATE 324 MG TAB PO SCH (21:54)
[2020-09-28] MEDS: SENNA 8.6 MG TAB (SENOKOT) PO SCH (21:54)
[2020-09-28] MEDS: ATORVASTATIN 20 MG TAB PO SCH (21:55)
[2020-09-28] MEDS: hydrOXYzine 25 MG TAB PO PRN (21:55)
[2020-09-28] MEDS: DULoxetine 30MG CAPSULE (CYMBALTA) PO SCH (21:55)
[2020-09-28 22:00] VITALS: BP 119/73
[2020-09-29] MEDS: ACETAMINOPHEN TAB 650MG DOSE (2X325MG) PO PRN ×3 (03:18→17:21)
[2020-09-29] MEDS ORDERED: oxyCODONE 5MG TAB PO ONE (03:30)
[2020-09-29] MEDS: LEVOTHYROXINE 50MCG TABLET (0.05MG) PO SCH (05:59)
[2020-09-29 06:00] VITALS: BP 112/76
[2020-09-29] MEDS: HumaLOG INSULIN (NovoLOG) PER UNIT SC SCH ×4 (07:10→21:00)
[2020-09-29] MEDS: ASPIRIN 81MG ENTERIC TABLET PO SCH (08:27)
[2020-09-29] MEDS: GABAPENTIN 300 MG CAP PO SCH ×3 (08:27→21:30)
[2020-09-29] MEDS: DOCUSATE SODIUM 100MG CAPSULE PO SCH ×2 (08:27→21:30)
[2020-09-29] MEDS: BUPRENORPHINE/NALOXONE 2-0.5MG SUBLINGUAL TABLET(SUBOXONE) SL SCH ×2 (08:27→21:30)
[2020-09-29] MEDS: METOCLOPRAMIDE 5 MG TAB PO SCH ×2 (08:27→21:30)
[2020-09-29] MEDS: FOLIC ACID 1 MG TAB PO SCH (08:27)
[2020-09-29] MEDS: FUROSEMIDE 20 MG TAB PO SCH (08:27)
[2020-09-29] MEDS: ENOXAPARIN 40MG/0.4ML SYRINGE (J1650 PER 10MG) SC SCH (08:28)
[2020-09-29] MEDS: NYSTATIN 100,000 UNITS/GM TOPICAL PWD 15 GM TOP SCH ×2 (08:28→21:31)
[2020-09-29] MEDS: tiZANidine 4 MG TAB PO PRN ×2 (08:38→21:30)
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
[2020-09-29] MEDS: CYANOCOBALAMIN 250 MCG TABLET PO SCH (10:49)
[2020-09-29] MEDS ORDERED: BUPRENORPHINE/NALOXONE 2-0.5MG SUBLINGUAL TABLET(SUBOXONE) SL ONE (11:00)
[2020-09-29 14:00] VITALS: BP 108/58
[2020-09-29] MEDS: SENNA 8.6 MG TAB (SENOKOT) PO SCH (21:30)
[2020-09-29] MEDS: ATORVASTATIN 20 MG TAB PO SCH (21:30)
[2020-09-29] MEDS: FERROUS GLUCONATE 324 MG TAB PO SCH (21:30)
[2020-09-29] MEDS: hydrOXYzine 25 MG TAB PO PRN (21:30)
[2020-09-29] MEDS: DULoxetine 30MG CAPSULE (CYMBALTA) PO SCH (21:31)
[2020-09-29] MEDS: MIRALAX *UNIT DOSE* 17GM PACKET PO PRN (21:31)
[2020-09-29 22:00] VITALS: BP 101/57
[2020-09-30] MEDS: LEVOTHYROXINE 50MCG TABLET (0.05MG) PO SCH (05:41)
[2020-09-30 06:00] VITALS: BP 111/69
[2020-09-30] MEDS: HumaLOG INSULIN (NovoLOG) PER UNIT SC SCH ×4 (07:12→20:18)
[2020-09-30 08:32] LABS: HEMATOCRIT 30.1 % (36.0-47.0); HEMOGLOBIN 9.3 g/dl (12.0-15.5); MEAN CORPUSCULAR HEMOGLOBIN 26.3 pg (27.0-33.0); MEAN CORPUSCULAR HGB CONC 30.9 g/dl (32.0-36.5); MEAN CORPUSCULAR VOLUME 85.3 fl (80.0-96.0); PLATELET COUNT, AUTOMATED 564 10^3/uL (150-450); RED BLOOD COUNT 3.53 10^6/uL (4.00-5.40)
[2020-09-30 08:55] LABS: ERYTHROCYTE SEDIMENTATION RATE 93 mm/hr (0-30)
[2020-09-30 08:56] LABS: ALBUMIN 1.1 GM/DL (3.2-5.2); ALT/SGPT 14 U/L (12-78); BILIRUBIN,TOTAL 0.1 MG/DL (0.2-1.0); BLOOD UREA NITROGEN 10 MG/DL (7-18); CALCIUM LEVEL 7.4 MG/DL (8.8-10.2); CARBON DIOXIDE LEVEL 30 MEQ/L (21-32); CHLORIDE LEVEL 96 MEQ/L (98-107); GLOMERULAR FILTRATION RATE > 60.0 (>45); GLUCOSE, FASTING 175 MG/DL (70-100); POTASSIUM SERUM 4.6 MEQ/L (3.5-5.1); SODIUM LEVEL 133 MEQ/L (136-145); TOTAL PROTEIN 5.4 GM/DL (6.4-8.2)
[2020-09-30] MEDS: ENOXAPARIN 40MG/0.4ML SYRINGE (J1650 PER 10MG) SC SCH (09:38)
[2020-09-30] MEDS: CYANOCOBALAMIN 250 MCG TABLET PO SCH (09:39)
[2020-09-30] MEDS: GABAPENTIN 300 MG CAP PO SCH ×3 (09:39→21:29)
[2020-09-30] MEDS: DOCUSATE SODIUM 100MG CAPSULE PO SCH ×2 (09:39→21:30)
[2020-09-30] MEDS: BUPRENORPHINE/NALOXONE 2-0.5MG SUBLINGUAL TABLET(SUBOXONE) SL SCH ×2 (09:39→21:30)
[2020-09-30] MEDS: tiZANidine 4 MG TAB PO PRN ×2 (09:39→21:39)
[2020-09-30] MEDS: ASPIRIN 81MG ENTERIC TABLET PO SCH (09:39)
[2020-09-30] MEDS: FUROSEMIDE 20 MG TAB PO SCH (09:39)
[2020-09-30] MEDS: METOCLOPRAMIDE 5 MG TAB PO SCH ×2 (09:39→21:29)
[2020-09-30] MEDS: FOLIC ACID 1 MG TAB PO SCH (09:39)
[2020-09-30] MEDS: NYSTATIN 100,000 UNITS/GM TOPICAL PWD 15 GM TOP SCH ×2 (09:40→21:30)
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
[2020-09-30 14:00] VITALS: BP 101/56
[2020-09-30] MEDS: ONDANSETRON 4 MG ORAL DISINTEGRATING TAB PO PRN (16:47)
[2020-09-30] MEDS: FERROUS GLUCONATE 324 MG TAB PO SCH (21:29)
[2020-09-30] MEDS: SENNA 8.6 MG TAB (SENOKOT) PO SCH (21:30)
[2020-09-30] MEDS: ATORVASTATIN 20 MG TAB PO SCH (21:30)
[2020-09-30] MEDS: DULoxetine 30MG CAPSULE (CYMBALTA) PO SCH (21:30)
[2020-09-30 22:00] VITALS: BP 115/55
[2020-10-01] VITALS (8 sets, daily range): BP systolic 90–133; BP diastolic 43–60
[2020-10-01] MEDS: ACETAMINOPHEN TAB 650MG DOSE (2X325MG) PO PRN ×2 (05:46→20:20)
[2020-10-01] MEDS: LEVOTHYROXINE 50MCG TABLET (0.05MG) PO SCH (05:46)
[2020-10-01] MEDS ORDERED: NS 1,000 ML IV ONE (06:25)
[2020-10-01 06:36] LABS: BASO # 0.1 10^3/uL (0.0-0.2); BASO % 0.7 % (0.0-1.0); EOS # 0.6 10^3/uL (0.0-0.5); HEMATOCRIT 32.8 % (36.0-47.0); LYMPH % 10.5 % (24.0-44.0); MEAN CORPUSCULAR HEMOGLOBIN 26.5 pg (27.0-33.0); MEAN CORPUSCULAR HGB CONC 30.5 g/dl (32.0-36.5); MEAN CORPUSCULAR VOLUME 86.8 fl (80.0-96.0); MONO # 2.5 10^3/uL (0.0-0.8); MONO % 13.1 % (2.0-8.0); NEUTROPHILS # 13.5 10^3/uL (1.5-8.5); NEUTROPHILS % 71.6 % (36.0-66.0); PLATELET COUNT, AUTOMATED 555 10^3/uL (150-450); RED BLOOD COUNT 3.78 10^6/uL (4.00-5.40)
[2020-10-01 06:37] LABS: WHITE BLOOD COUNT 18.9 10^3/uL (4.0-10.0)
[2020-10-01 07:07] LABS: ALBUMIN 1.2 GM/DL (3.2-5.2); ALT/SGPT 14 U/L (12-78); BILIRUBIN,TOTAL 0.2 MG/DL (0.2-1.0); BLOOD UREA NITROGEN 10 MG/DL (7-18); CALCIUM LEVEL 8.1 MG/DL (8.8-10.2); CARBON DIOXIDE LEVEL 35 MEQ/L (21-32); CHLORIDE LEVEL 93 MEQ/L (98-107); CREATININE FOR GFR 0.41 MG/DL (0.55-1.30); GLOMERULAR FILTRATION RATE > 60.0 (>45); GLUCOSE, FASTING 177 MG/DL (70-100); POTASSIUM SERUM 4.3 MEQ/L (3.5-5.1); SODIUM LEVEL 132 MEQ/L (136-145); TOTAL PROTEIN 5.6 GM/DL (6.4-8.2)
[2020-10-01] MEDS: CEFEPIME HCL 1 GM in D5W MINI-BAG PLUS 50 ML IV SCH ×2 (08:24→16:10)
[2020-10-01] MEDS: BUPRENORPHINE/NALOXONE 2-0.5MG SUBLINGUAL TABLET(SUBOXONE) SL SCH ×2 (08:29→20:17)
[2020-10-01] MEDS: ASPIRIN 81MG ENTERIC TABLET PO SCH (08:29)
[2020-10-01] MEDS: CYANOCOBALAMIN 250 MCG TABLET PO SCH (08:29)
[2020-10-01] MEDS: FOLIC ACID 1 MG TAB PO SCH (08:30)
[2020-10-01] MEDS: DOCUSATE SODIUM 100MG CAPSULE PO SCH ×2 (08:30→20:16)
[2020-10-01] MEDS: GABAPENTIN 300 MG CAP PO SCH ×3 (08:30→20:17)
[2020-10-01] MEDS: METOCLOPRAMIDE 5 MG TAB PO SCH ×2 (08:30→20:17)
[2020-10-01] MEDS: FUROSEMIDE 20 MG TAB PO SCH (08:31)
[2020-10-01] MEDS: NYSTATIN 100,000 UNITS/GM TOPICAL PWD 15 GM TOP SCH ×2 (08:31→20:16)
[2020-10-01] MEDS: ENOXAPARIN 40MG/0.4ML SYRINGE (J1650 PER 10MG) SC SCH (08:32)
[2020-10-01] MEDS: tiZANidine 4 MG TAB PO PRN ×2 (08:36→20:16)
[2020-10-01] MEDS: hydrOXYzine 25 MG TAB PO PRN ×2 (08:36→20:16)
[2020-10-01] MEDS: HumaLOG INSULIN (NovoLOG) PER UNIT SC SCH ×4 (08:37→20:17)
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
[2020-10-01] MEDS ORDERED: SODIUM CHLORIDE 0.9% 1000ML IV ONE (11:30)
[2020-10-01] MEDS ORDERED: DAKIN'S 0.25% HALF-STRENGTH SOLN 480 ML TOP PRN (17:30)
[2020-10-01] MEDS: SENNA 8.6 MG TAB (SENOKOT) PO SCH (20:16)
[2020-10-01] MEDS: FERROUS GLUCONATE 324 MG TAB PO SCH (20:16)
[2020-10-01] MEDS: DULoxetine 30MG CAPSULE (CYMBALTA) PO SCH (20:17)
[2020-10-01] MEDS: ATORVASTATIN 20 MG TAB PO SCH (20:17)
[2020-10-01] MEDS: PIPERACILLIN/TAZOBACTAM SOD 3.375 GM in D5W MINI-BAG PLUS 50 ML IV SCH (22:23)
[2020-10-02] VITALS (8 sets, daily range): BP systolic 82–108; BP diastolic 46–61
[2020-10-02] MEDS: PIPERACILLIN/TAZOBACTAM SOD 3.375 GM in D5W MINI-BAG PLUS 50 ML IV SCH ×4 (04:57→23:41)
[2020-10-02 06:08] LABS: HEMOGLOBIN 8.9 g/dl (12.0-15.5); MEAN CORPUSCULAR HEMOGLOBIN 26.1 pg (27.0-33.0); MEAN CORPUSCULAR HGB CONC 30.7 g/dl (32.0-36.5); PLATELET COUNT, AUTOMATED 543 10^3/uL (150-450); RED BLOOD COUNT 3.41 10^6/uL (4.00-5.40); WHITE BLOOD COUNT 16.2 10^3/uL (4.0-10.0)
[2020-10-02] MEDS: LEVOTHYROXINE 50MCG TABLET (0.05MG) PO SCH (06:14)
[2020-10-02 06:30] LABS: ALT/SGPT 13 U/L (12-78); BILIRUBIN,TOTAL 0.2 MG/DL (0.2-1.0); BLOOD UREA NITROGEN 10 MG/DL (7-18); CALCIUM LEVEL 7.9 MG/DL (8.8-10.2); CARBON DIOXIDE LEVEL 35 MEQ/L (21-32); CHLORIDE LEVEL 96 MEQ/L (98-107); CREATININE FOR GFR 0.27 MG/DL (0.55-1.30); GLOMERULAR FILTRATION RATE > 60.0 (>45); GLUCOSE, FASTING 116 MG/DL (70-100); POTASSIUM SERUM 4.5 MEQ/L (3.5-5.1); SODIUM LEVEL 134 MEQ/L (136-145); TOTAL PROTEIN 5.1 GM/DL (6.4-8.2)
[2020-10-02] MEDS: HumaLOG INSULIN (NovoLOG) PER UNIT SC SCH ×4 (07:30→20:47)
[2020-10-02] MEDS: ENOXAPARIN 40MG/0.4ML SYRINGE (J1650 PER 10MG) SC SCH (08:59)
[2020-10-02] MEDS: DIAPER RELIEF PASTE (DESITIN) 60GM TOP SCH ×2 (09:00→20:42)
[2020-10-02] MEDS: FUROSEMIDE 20 MG TAB PO SCH (09:00)
[2020-10-02] MEDS: DOCUSATE SODIUM 100MG CAPSULE PO SCH ×2 (09:01→20:41)
[2020-10-02] MEDS: GABAPENTIN 300 MG CAP PO SCH ×3 (09:01→20:41)
[2020-10-02] MEDS: BUPRENORPHINE/NALOXONE 2-0.5MG SUBLINGUAL TABLET(SUBOXONE) SL SCH ×2 (09:01→20:41)
[2020-10-02] MEDS: CYANOCOBALAMIN 250 MCG TABLET PO SCH (09:01)
[2020-10-02] MEDS: FOLIC ACID 1 MG TAB PO SCH (09:02)
[2020-10-02] MEDS: METOCLOPRAMIDE 5 MG TAB PO SCH ×2 (09:02→20:41)
[2020-10-02] MEDS: ASPIRIN 81MG ENTERIC TABLET PO SCH (09:02)
[2020-10-02] MEDS: NYSTATIN 100,000 UNITS/GM TOPICAL PWD 15 GM TOP SCH ×2 (09:07→20:42)
[2020-10-02] MEDS ORDERED: NS 500 ML IV ONE ×4 (09:10→15:45)
[2020-10-02] MEDS: MIRALAX *UNIT DOSE* 17GM PACKET PO PRN (09:24)
[2020-10-02] MEDS: tiZANidine 4 MG TAB PO PRN ×2 (09:25→20:47)
[2020-10-02] MEDS: ACETAMINOPHEN TAB 650MG DOSE (2X325MG) PO PRN ×2 (09:25→23:45)
--- NOTE | 2020-10-02 10:45 | IPN ---
INFECTIOUS DISEASE PROGRESS NOTE DATE: 10/01/2020 SUBJECTIVE: Nadege was seen to be not to be doing very well today. Her wound VAC was removed and she had a large amount of purulent discharge on the decubitus ulcers, especially the thigh ones. She also has an area of eschar and sacral decubitus with exposed bone. She was supposed to be transferred to the correction in [place] last week, Thursday, but they could not take her as they do not include suboxone treatment. So, her PICC line was removed. She was slightly hypotensive and received 1.5 liters of IV fluid. She is quite edematous at this point. She has no shortness of breath. She is on FiO2 of 28%. No significant secretions from her trach. OBJECTIVE: On physical examination, temperature is 98, pulse 58, respirations 18, blood pressure 95/60, O2 sats 98% on FiO2 of 28%. Heart: Normal S1, S2. No murmurs appreciated. Lungs: Clear, extra rhonchi. Abdomen: Soft, nontender. Colostomy with hard stools in the bag. Extremities: plus 2-3 pitting edema. LABORATORY: White count 18.9, hemoglobin 10, hematocrit 32.8, platelets 555; 72% neutrophils, 10% lymphocytes, 13% monocytes. ESR 92. Sodium 132, potassium 4.3, chloride 93, bicarbonate 35, BUN 10, creatinine 0.41, glucose 177. Lactic acid 2.3 with followup lactic acid of 1.2. Calcium 8.1, AST 19, ALT 14, alkaline phosphatase 140. CRP 14.9, total protein 5.6, albumin 1.2. Blood cultures: Two sets were drawn and are pending. Wound culture from the decubitus pending. Urine culture on 09/30 was no growth. IMPRESSION: 1. Sepsis, probably from infected decubitus ulcer. Cultures have been sent. Cefepime was restarted after she had been off for 48 hours of antibiotics. Last dose she had received was one 09/28. She will be switched to IV Zosyn for better anaerobic coverage instead of cefepime which she had discontinued. 2. Leaking Wood catheter with increased bladder spasm. She is status post Botox toxin injection and insertion of a bigger catheter. She still has some leakage but much improved. 3. Sacral decubitus ulcer with bilateral ischial ulcerations with purulence. Repeat culture was sent and patient was started on IV Zosyn. Dr. Lopez was called. She changed her wound VAC to Dakin's dressing. Will see the decubitus tomorrow as her dressing had already been changed by the time I came to see the patient. PLAN: Discontinue IV cefepime. Start Zosyn at 3.375 grams IV q. 6 hours. Will follow up on blood culture, wound culture, and decide on further antibiotic management tomorrow.
--- NOTE | 2020-10-02 15:03 | IPNPDOC ---
Subjective General Date Seen: October 02, 2020 Subject Chief Complaint/History The patient is a 65-year-old female admitted with a reason for visit of Uti, Overactive Bladder. Patient experiencing change in condition. She states she is feeling weak and dizzy. The wound vac was not properly functioning over the past couple of days. Reported by caregivers that white liquid with pungent smell was found when the foam was removed. WBC increased. Wound vac removed. Current Medications Current Medications Current Medications Medications (Trade) Dose Ordered Sig/Yonatan Route PRN Reason Start Time Stop Time Status Last Admin Dose Admin Acetaminophen (Tylenol Tab) 650 mg Q4HP PRN PO PAIN OR DISCOMFORT 09/07/20 21:10 10/02/20 09:25 Albuterol Sulfate (Proventil Neb) 2.5 mg Q6HP PRN NEB SOB/WHEEZING 09/17/20 10:20 Artificial Tears (Akwa Tears) 2 drop TID PRN OU DRY EYES 09/07/20 13:55 09/27/20 15:25 Aspirin (Ecotrin) 81 mg DAILY PO 09/07/20 09:00 10/02/20 09:02 Atorvastatin Calcium (Lipitor) 40 mg QHS PO 09/07/20 21:00 10/01/20 20:17 Buprenorphine/ Naloxone (Suboxone 2/ 0.5mg) 1 tab BID SL 09/28/20 21:00 09/29/20 10:30 DC 09/29/20 08:27 Buprenorphine/ Naloxone (Suboxone 2/ 0.5mg) 1 tab QPM SL 09/29/20 21:00 10/01/20 20:17 Buprenorphine/ Naloxone (Suboxone 2/ 0.5mg) 2 tab BID SL 09/07/20 21:00 09/28/20 11:12 DC 09/28/20 05:42 Buprenorphine/ Naloxone (Suboxone 2/ 0.5mg) 2 tab DAILY SL 09/30/20 09:00 10/02/20 09:01 Cefepime HCl 1 gm/ Dextrose 50 ml @ 100 mls/hr Q12H IV 09/19/20 21:00 09/20/20 18:32 DC 09/20/20 09:18 Cefepime HCl 1 gm/ Dextrose 50 ml @ 100 mls/hr Q8H IV 09/20/20 18:25 09/28/20 11:43 DC 09/28/20 03:03 Cefepime HCl 1 gm/ Dextrose 50 ml @ 100 mls/hr Q8H IV 10/01/20 07:00 10/01/20 21:05 DC 10/01/20 16:10 Ceftriaxone Sodium 1 gm/ Dextrose 50 ml @ 100 mls/hr Q24H IV 09/07/20 13:00 09/07/20 14:56 DC 09/07/20 13:43 Cod Liver Oil/ Zinc Oxide (Desitin) 1 dose BID TOP 10/02/20 09:00 Cyanocobalamin (Vitamin B12) 250 mcg DAILY PO 09/07/20 09:00 10/02/20 09:01 Dextrose (Dextrose 50%) 25 ml ASDIRECTED PRN IV SEE LABEL COMMENTS 09/07/20 14:10 Docusate Sodium (Colace) 100 mg BID PO 09/07/20 21:00 09/30/20 16:42 DC 09/30/20 09:39 Docusate Sodium (Colace) 200 mg BID PO 09/30/20 21:00 10/02/20 09:01 Duloxetine HCl (Cymbalta) 60 mg QHS PO 09/07/20 21:00 10/01/20 20:17 Enoxaparin Sodium (Lovenox) 40 mg DAILY SC 09/08/20 09:00 10/02/20 08:59 Famotidine (Pepcid) 20 mg QHS PRN PO HEARTBURN 09/07/20 13:55 Fentanyl Citrate (Sublimaze) 25 mcg Q5MP PRN IV PAIN LEVEL 5-10 09/15/20 19:00 09/15/20 20:30 DC Fentanyl Citrate (Sublimaze) 25 mcg Q5MP PRN IV PAIN LEVEL 5-10 09/20/20 17:10 09/20/20 18:10 DC Fentanyl Citrate (Sublimaze) 25 mcg Q5MP PRN IV PAIN LEVEL 5-10 09/20/20 17:45 09/20/20 18:45 DC Ferrous Gluconate (Fergon) 324 mg QHS PO 09/07/20 21:00 10/01/20 20:16 Folic Acid (Folic Acid) 1 mg DAILY PO 09/07/20 09:00 10/02/20 09:02 Furosemide (Lasix) 20 mg DAILY PO 09/23/20 09:00 09/24/20 08:53 DC 09/23/20 11:18 Furosemide (Lasix) 40 mg DAILY PO 09/08/20 09:00 09/07/20 14:10 DC Furosemide (Lasix) 40 mg DAILY PO 09/10/20 09:00 09/10/20 14:40 DC 09/10/20 08:50 Furosemide (Lasix) 40 mg DAILY PO 09/12/20 09:00 09/21/20 07:14 DC 09/19/20 09:22 Furosemide (Lasix) 40 mg DAILY PO 09/24/20 09:00 Hold 09/30/20 09:39 Gabapentin (Neurontin) 900 mg TID PO 09/07/20 16:00 10/02/20 09:01 Glucagon (Glucagon) 1 mg ASDIRECTED PRN SC SEE LABEL COMMENTS 09/07/20 14:10 Glucose (Glucose) 16 GM ASDIRECTED PRN PO SEE LABEL COMMENTS 09/07/20 14:10 Heparin Sodium (Heparin (Flush)) 200 units ASDIRECTED PRN IV SEE LABEL COMMENTS 09/10/20 13:20 09/21/20 15:43 DC 09/19/20 20:42 Heparin Sodium (Heparin (Flush)) 200 units ASDIRECTED PRN IV SEE LABEL COMMENTS 09/21/20 16:00 09/28/20 11:57 DC 09/27/20 09:37 Heparin Sodium (Heparin (Flush)) 200 units PICC IV 09/10/20 18:00 09/21/20 15:43 DC 09/21/20 05:51 Heparin Sodium (Heparin (Flush)) 200 units PICC IV 09/21/20 18:00 09/28/20 11:57 DC 09/28/20 05:40 Home Med (Med Rec Complete!) ASDIRECTED XX 09/07/20 13:00 09/07/20 13:00 DC Hydromorphone HCl (Dilaudid) 0.2 mg Q5MP PRN IV PAIN LEVEL 4-7 09/20/20 17:10 09/20/20 18:10 DC Hydromorphone HCl (Dilaudid) 0.2 mg Q5MP PRN IV PAIN LEVEL 4-7 09/20/20 17:45 09/20/20 18:45 DC Hydroxyzine HCl (Atarax) 25 mg TID PRN PO ANXIETY 09/07/20 13:55 10/01/20 20:16 Insulin Human Lispro (HumaLOG INSULIN) SEE PROTOCOL TABLE AC SC 09/07/20 17:30 10/02/20 07:30 Insulin Human Lispro (HumaLOG INSULIN) SEE PROTOCOL TABLE QHS SC 09/07/20 21:00 Lactated Ringer's 1,000 ml @ 100 mls/hr Q10H IV 09/15/20 19:00 09/15/20 20:30 DC Lactated Ringer's 1,000 ml @ 100 mls/hr Q10H IV 09/20/20 17:10 09/20/20 18:10 DC Lactated Ringer's 1,000 ml @ 100 mls/hr Q10H IV 09/20/20 17:45 09/20/20 18:45 DC Levothyroxine Sodium (Synthroid) 50 mcg DAILY@0600 PO 09/07/20 06:00 10/02/20 06:14 Meloxicam (Mobic) 7.5 mg DAILY PO 09/07/20 09:00 09/09/20 15:16 DC 09/09/20 10:15 Methocarbamol (Robaxin) 500 mg Q6HP PRN PO spasms 09/23/20 08:00 09/24/20 07:29 DC Methocarbamol (Robaxin) 500 mg QID PRN PO MUSCLE SPASMS 09/07/20 13:55 09/22/20 15:18 DC 09/17/20 18:33 Metoclopramide HCl (Reglan) 5 mg BID PO 09/07/20 09:00 10/02/20 09:02 Midazolam HCl (Versed) 1 mg ASDIRECTED PRN IV Q5 MIN ..MAY REPEAT X1 09/15/20 19:30 09/15/20 20:15 DC 09/15/20 19:33 Nystatin (Mycostatin Powder, Nystop) Apply to groin, abdomi... BID TOP 09/23/20 09:00 10/02/20 09:07 Ondansetron HCl (ZOFRAN INJection) 4 mg Q4HP PRN IV NAUSEA OR VOMITING 09/15/20 19:00 09/15/20 20:30 DC Ondansetron HCl (ZOFRAN INJection) 4 mg Q4HP PRN IV NAUSEA OR VOMITING 09/20/20 17:10 09/20/20 18:10 DC Ondansetron HCl (ZOFRAN INJection) 4 mg Q4HP PRN IV NAUSEA OR VOMITING 09/20/20 17:45 09/20/20 18:45 DC Ondansetron HCl (ZOFRAN INJection) 4 mg Q6HP PRN IV NAUSEA OR VOMITING 09/07/20 14:10 09/28/20 11:57 DC 09/25/20 17:09 Ondansetron HCl (Zofran Odt) 4 mg DAILY PO 09/08/20 09:00 09/07/20 14:10 DC Ondansetron HCl (Zofran Odt) 4 mg Q6HP PRN PO NAUSEA OR VOMITING 09/28/20 11:55 09/30/20 16:47 Oxybutynin Chloride (Ditropan Xl) 10 mg DAILY PO 09/09/20 17:55 09/14/20 08:48 DC 09/14/20 08:45 Oxycodone HCl (Roxicodone, Oxyir) 5 mg ASDIRECTED PRN PO PAIN LEVEL 1-4 09/15/20 19:00 09/15/20 20:30 DC Oxycodone HCl (Roxicodone, Oxyir) 5 mg ASDIRECTED PRN PO PAIN LEVEL 1-4 09/20/20 17:10 09/20/20 18:10 DC 09/20/20 17:18 Oxycodone HCl (Roxicodone, Oxyir) 5 mg ASDIRECTED PRN PO PAIN LEVEL 1-4 09/20/20 17:45 09/20/20 18:45 DC Piperacillin Sod/ Tazobactam Sod 3.375 gm/Dextrose 50 ml @ 50 mls/hr Q6H IV 09/10/20 14:00 09/12/20 11:09 DC 09/12/20 08:25 Piperacillin Sod/ Tazobactam Sod 3.375 gm/Dextrose 50 ml @ 50 mls/hr Q6H IV 09/07/20 16:00 09/10/20 13:24 DC 09/09/20 16:21 Piperacillin Sod/ Tazobactam Sod 3.375 gm/Dextrose 50 ml @ 50 mls/hr Q6H IV 10/01/20 22:00 5/4/21 09:08 Polyethylene Glycol (Miralax) 1 pkt DAILY PRN PO CONSTIPATION 09/07/20 13:55 10/02/20 09:24 Potassium Chloride (Micro-K Extencaps) 30 meq Q4H PO 09/09/20 09:00 09/09/20 13:01 DC 09/09/20 13:45 Senna (Senokot) 1 tab QHS PO 09/07/20 21:00 10/01/20 20:16 Sodium Hypochlorite (Dakin'S Solution) remove wound vac, pl... DAILYPRN PRN TOP WOUND CARE 10/01/20 17:30 10/01/20 20:16 Sodium Chloride 1,000 ml @ 85 mls/hr [id number] IV 09/10/20 14:40 09/11/20 09:38 DC 09/11/20 03:50 Sodium Chloride 1,000 ml @ 100 mls/hr Q10H IV 09/07/20 13:55 09/08/20 11:08 DC 09/08/20 05:36 Sodium Chloride ([place] Nasal Kulm) 2 spray Q2HP PRN NA NASAL DRYNESS 09/18/20 11:20 Sodium Chloride (Saline Lock Flush) 10 ml ASDIRECTED PRN IV SEE LABEL COMMENTS 09/10/20 13:20 09/21/20 15:43 DC 09/19/20 20:43 Sodium Chloride (Saline Lock Flush) 10 ml ASDIRECTED PRN IV SEE LABEL COMMENTS 09/21/20 16:00 09/28/20 11:57 DC 09/27/20 09:37 Sodium Chloride (Saline Lock Flush) 10 ml PICC IV 09/10/20 18:00 09/21/20 15:43 DC 09/21/20 05:52 Sodium Chloride (Saline Lock Flush) 10 ml PICC IV 09/21/20 18:00 09/28/20 11:57 DC 09/28/20 05:41 Solifenacin (Vesicare) 10 mg DAILY PO 09/15/20 09:00 09/20/20 18:00 DC 09/20/20 09:18 Tizanidine HCl (Zanaflex) 4 mg BIDP PRN PO spasms 09/24/20 07:30 10/02/20 09:25 Tizanidine HCl (Zanaflex) 4 mg Q8HP PRN PO SPASMS 09/22/20 09:00 09/22/20 15:18 DC 09/22/20 10:41 Tizanidine HCl (Zanaflex) 4 mg QHS PO 09/23/20 21:00 09/24/20 07:29 DC 09/23/20 21:05 Tizanidine HCl (Zanaflex) 4 mg QHS PRN PO MUSCLE SPASMS 09/07/20 13:55 09/22/20 08:15 DC 09/21/20 20:34 Vancomycin HCl 750 mg/IV Miscellaneous Supplies 1 each/ Sodium Chloride 275 ml @ 275 mls/hr Q12H IV 09/11/20 04:00 09/11/20 15:39 DC 09/11/20 03:48 Vancomycin HCl 1000 mg/IV Miscellaneous Supplies 1 each/ Sodium Chloride 270 ml @ 270 mls/hr Q12H IV 09/08/20 10:25 09/08/20 11:05 DC Vancomycin HCl 1000 mg/IV Miscellaneous Supplies 1 each/ Sodium Chloride 270 ml @ 270 mls/hr Q12H IV 09/09/20 00:00 09/09/20 13:43 DC 09/08/20 23:33 Vancomycin HCl 1000 mg/IV Miscellaneous Supplies 1 each/ Sodium Chloride 270 ml @ 270 mls/hr Q12H IV 09/09/20 14:00 09/10/20 15:43 DC 09/09/20 13:45 Vancomycin HCl 1000 mg/IV Miscellaneous Supplies 1 each/ Sodium Chloride 270 ml @ 270 mls/hr Q12H IV 09/11/20 16:00 09/12/20 10:32 DC 09/12/20 03:57 Allergies Coded Allergies: No Known Allergies (Unverified , 10/15/18) Objective Physical Examination Examination GENERAL APPEARANCE:Patient seen, laying in bed, awake, alert, and oriented. Comfortable, in no acute distress. SKIN: Warm and moist. Sacral wound with DTI on the base of the wound, mostly, granulating tissue, clear drainage, no odor. Left ischium wound with pungent odor, no purulence. Black discoloration of the bone. Tunneling toward the sacrum. 90 % wound granulating tissue. Right ischium wound clean granulating tissue. LUNGS: Clear to auscultation bilaterally. No wheezing appreciated. HEART: No chest wall abnormalities. Regular rate and rhythm with no murmurs appreciated. ABDOMEN: Abdomen is soft, non-tender, non-distended. EXTREMITIES: No edema identified. No calf tenderness. Vital Signs Vital Signs Date Time Temp Pulse Resp B/P (MAP) Pulse Ox O2 Delivery O2 Flow Rate FiO2 10/02/20 12:22 95/46 (62) 10/02/20 11:35 66 95 Trach Collar 5.0 28 10/02/20 06:00 97.6 19 I&Os I&O- Last 24 Hours up to 6 AM 10/02/20 05:59 Intake Total 740 ml Output Total 1175 ml Balance -435 ml Laboratory Data Labs 24H Laboratory Tests 2 10/01/20 16:41: Bedside Glucose (Misc Panel) 88 10/01/20 20:17: Bedside Glucose (Misc Panel) 133H 10/02/20 05:50: Nucleated Red Blood Cells % (auto) 0.0, Anion Gap 3L, Glomerular Filtration Rate > 60.0, Calcium Level 7.9L, Total Bilirubin 0.2, Aspartate Amino Transf (AST/SGOT) 19, Alanine Aminotransferase (ALT/SGPT) 13, Alkaline Phosphatase 1 42H, Total Protein 5.1L, Albumin 1.0L, Albumin/Globulin Ratio 0.2L 10/02/20 11:33: Bedside Glucose (Misc Panel) 154H CBC/BMP Laboratory Tests 10/02/20 05:50 Microbiology Microbiology 10/01/20 Gram Stain - Final, Resulted 10/01/20 Wound Culture, Resulted Pending 10/01/20 Blood Culture - Preliminary, Resulted No growth after 24 hours . All specim... 10/01/20 Blood Culture - Preliminary, Resulted No growth after 24 hours . All specim... 09/30/20 Urine Culture - Final, Complete Impression Sacral, ischium wounds. Deteriorating. D/c wound vac. Dakins solution packing was done for 24 hrs. Odor improved, not fully resolved. No purulent exudate. Betadine soak Kerlix dressing changes. May require transfusion, Hb decreasing Wood in place, but leaks with spasms. Off load. Increase nutrition. Plan / VTE VTE Prophylaxis Ordered?: Yes MCKENZIE MULLEN DO October 02, 2020 15:03
[2020-10-02] MEDS ORDERED: LIDOCAINE 1% MDV 20ML VIAL As Ordered ONE (16:02)
[2020-10-02] MEDS: ATORVASTATIN 20 MG TAB PO SCH (20:41)
[2020-10-02] MEDS: FERROUS GLUCONATE 324 MG TAB PO SCH (20:41)
[2020-10-02] MEDS: DULoxetine 30MG CAPSULE (CYMBALTA) PO SCH (20:41)
[2020-10-02] MEDS: SENNA 8.6 MG TAB (SENOKOT) PO SCH (20:41)
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
[2020-10-02] MEDS: MIRALAX *UNIT DOSE* 17GM PACKET PO SCH (23:41)
[2020-10-03] MEDS: SODIUM CHLORIDE 0.9% INJ 10 ML SYR IV PRN ×2 (01:05→22:43)
[2020-10-03] MEDS: LEVOTHYROXINE 50MCG TABLET (0.05MG) PO SCH (05:24)
[2020-10-03] MEDS: PIPERACILLIN/TAZOBACTAM SOD 3.375 GM in D5W MINI-BAG PLUS 50 ML IV SCH ×4 (05:24→21:03)
[2020-10-03] MEDS: SODIUM CHLORIDE 0.9% INJ 10 ML SYR IV SCH ×2 (05:41→18:04)
[2020-10-03 06:00] VITALS: BP 104/65
[2020-10-03 06:01] LABS: HEMATOCRIT 29.8 % (36.0-47.0); MEAN CORPUSCULAR HEMOGLOBIN 26.1 pg (27.0-33.0); MEAN CORPUSCULAR HGB CONC 30.2 g/dl (32.0-36.5); MEAN CORPUSCULAR VOLUME 86.4 fl (80.0-96.0); PLATELET COUNT, AUTOMATED 566 10^3/uL (150-450); RED BLOOD COUNT 3.45 10^6/uL (4.00-5.40); WHITE BLOOD COUNT 16.1 10^3/uL (4.0-10.0)
[2020-10-03 06:20] LABS: BLOOD UREA NITROGEN 10 MG/DL (7-18); CALCIUM LEVEL 7.9 MG/DL (8.8-10.2); CARBON DIOXIDE LEVEL 32 MEQ/L (21-32); CHLORIDE LEVEL 98 MEQ/L (98-107); CREATININE FOR GFR 0.25 MG/DL (0.55-1.30); GLOMERULAR FILTRATION RATE > 60.0 (>45); GLUCOSE, FASTING 120 MG/DL (70-100); POTASSIUM SERUM 4.1 MEQ/L (3.5-5.1); SODIUM LEVEL 135 MEQ/L (136-145)
[2020-10-03] MEDS: HumaLOG INSULIN (NovoLOG) PER UNIT SC SCH ×4 (08:03→20:43)
--- NOTE | 2020-10-03 08:11 | IPN ---
PROGRESS NOTE DATE: 10/02/2020 Nadege was going to get a peripherally inserted central catheter (PICC) line. She is complaining of a lot of spasm and she is asking for something to help her more with her spasm. Her catheter continues to leak and therefore she has frequently, with every muscle spasm, leakage of urine that is causing irritation of her thighs as well as her back area where there is urine. She has had no fever or chills. No nausea, vomiting, or diarrhea. No change in respiratory status. PHYSICAL EXAMINATION: Genitourinary () area: There is diffuse erythema in the inner thighs. +2 pitting edema bilaterally. Heart: Normal S1, S2, no murmurs, rubs, or gallops. Lungs are clear, no wheezes, rales, or rhonchi. She has a trach in place. Abdomen: Morbidly obese, soft, with a colostomy tube that has very hard stool in the bag. Today, temperature is 98.1, pulse 68, respirations 18, blood pressure 108/61, oxygen saturation 98% on 28% FiO2. LABORATORY DATA: White count 16.2, hemoglobin 8.9, hematocrit 29, platelets 543, ESR 92, sodium 134, potassium 4.5, chloride 96, bicarbonate 25, BUN 10, creatinine 0.27, glucose 116, calcium 7.9, AST 19, ALT 13, alkaline phosphatase 142, total protein 5.1, albumin 1. Blood cultures two sets were no growth after 24 hours. Urine culture on 09/30/2020 was negative. Culture from the decubitus ulcer has moderate gram-positive cocci in pairs, gram-negative rods and few gram-positive rods. Culture is still pending. IMPRESSION: 1. Infected sacral and ischial decubitus ulcer, on IV Zosyn. White count improving. Blood pressure improving. 2. Bladder spasm with urinary leakage around the Wood catheter status post Botox and upsizing of the catheter. In spite of that, she continues to have significant leakage and therefore has chemical dermatitis from the urine with irritation and Candidiasis. Will add Diflucan 150 mg daily for 10 days. 3. Constipation. Drug induced from Suboxone. Will change her stool softeners to Senokot two tablets at bedtime and give her MiraLax one tablet daily. 4. Muscle spasms. I will discuss the case with Dr. French from rehabilitation to see what would be her best medications scheduled to help decrease muscle spasms. She is currently on tizanidine 4 mg twice a day as needed, duloxetine 60 mg nightly, and gabapentin 900 mg by mouth three times a day. PLAN: Continue IV Zosyn for infected decubitus ulcer. Waiting on results of wound culture. Add Diflucan 150 mg daily for mucocutaneous Candidiasis. Continue using InterDry between the folds to help absorb the moisture. Discussed with Dr. Barksdale switch to suprapubic catheter, hopefully that may help decrease her leakage around the pubic area.
[2020-10-03] MEDS: ENOXAPARIN 40MG/0.4ML SYRINGE (J1650 PER 10MG) SC SCH (08:23)
[2020-10-03] MEDS: CYANOCOBALAMIN 250 MCG TABLET PO SCH (08:23)
[2020-10-03] MEDS: MIRALAX *UNIT DOSE* 17GM PACKET PO SCH (08:23)
[2020-10-03] MEDS: FUROSEMIDE 20 MG TAB PO SCH (08:23)
[2020-10-03] MEDS: GABAPENTIN 300 MG CAP PO SCH ×3 (08:24→21:03)
[2020-10-03] MEDS: ASPIRIN 81MG ENTERIC TABLET PO SCH (08:24)
[2020-10-03] MEDS: FOLIC ACID 1 MG TAB PO SCH (08:24)
[2020-10-03] MEDS: BUPRENORPHINE/NALOXONE 2-0.5MG SUBLINGUAL TABLET(SUBOXONE) SL SCH ×2 (08:24→21:04)
[2020-10-03] MEDS: FLUCONAZOLE 50MG TABLET PO SCH (08:25)
[2020-10-03] MEDS: METOCLOPRAMIDE 5 MG TAB PO SCH ×2 (08:25→21:04)
[2020-10-03] MEDS: DIAPER RELIEF PASTE (DESITIN) 60GM TOP SCH ×2 (08:25→21:05)
[2020-10-03] MEDS: NYSTATIN 100,000 UNITS/GM TOPICAL PWD 15 GM TOP SCH ×2 (08:25→21:05)
[2020-10-03] MEDS: tiZANidine 4 MG TAB PO PRN (08:33)
[2020-10-03 14:00] VITALS: BP 108/61
[2020-10-03 14:29] LABS: TOTAL PROTEIN 4.7 GM/DL (6.4-8.2)
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
[2020-10-03] MEDS: oxyBUTYnin *DITROPAN XL* 5 MG TABCR PO SCH (16:07)
--- NOTE | 2020-10-03 16:23 | REP ---
INDICATION: IV antibiotics, insufficient current access. COMPARISON: None. TECHNIQUE: The procedure was performed under the direct supervision of Dr. Hull. The risks and benefits of the procedure were explained to the patient and informed consent was obtained. The right basilic vein was localized using ultrasound guidance. The skin was prepped and draped in a sterile fashion. 2% lidocaine was used as a local anesthetic. Using ultrasound guidance the basilic vein was cannulated and a 0.018 guidewire was inserted and advanced to the SVC using fluoroscopic guidance, and last image hold technology. The needle was removed and a 5.5 English dilator and peel-away sheath was inserted over the guide wire. A 5.5 English dual lumen catheter was cut to length of 43 cm. The dilator was removed and the catheter was inserted over the guide wire with the tip ending in the SVC. The peel-away sheath was removed and the catheter was flushed with heparinized saline as per Hospital protocol. The catheter was affixed to the skin and a sterile dressing was applied. The patient tolerated the procedure well and there were no immediate complications. 1.8 minutes of fluoro time was utilized for this procedure. FINDINGS: None IMPRESSION: PICC line insertion right basilic vein with the tip ending in the SVC. <Electronically signed by Sohail Cooper > 10/03/20 [id number] <Electronically signed by Bishop Hull > 10/03/20 [id number]
--- NOTE | 2020-10-03 16:58 | REP ---
INDICATION: fecal retention?. COMPARISON: None. TECHNIQUE: Single view abdomen and pelvis. FINDINGS: Moderate fecal material is seen scattered throughout the colon. There is a single mildly dilated small bowel loop in the left upper quadrant. Metallic clips are seen in the right upper quadrant. There are degenerative changes of the spine. IMPRESSION: Moderate fecal retention. <Electronically signed by Bishop Hull > 10/03/20 [id number]
[2020-10-03] MEDS: ONDANSETRON 4 MG ORAL DISINTEGRATING TAB PO PRN (18:04)
[2020-10-03] MEDS: DULoxetine 30MG CAPSULE (CYMBALTA) PO SCH (21:03)
[2020-10-03] MEDS: FERROUS GLUCONATE 324 MG TAB PO SCH (21:04)
[2020-10-03] MEDS: BACLOFEN 5MG PER 1/2 TABLET PO SCH (21:04)
[2020-10-03] MEDS: SENOKOT S TAB PO SCH (21:04)
[2020-10-03] MEDS: ATORVASTATIN 20 MG TAB PO SCH (21:04)
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
[2020-10-03 22:00] VITALS: BP 107/63
[2020-10-04] MEDS: PIPERACILLIN/TAZOBACTAM SOD 3.375 GM in D5W MINI-BAG PLUS 50 ML IV SCH ×4 (04:00→22:23)
[2020-10-04] MEDS: ACETAMINOPHEN TAB 650MG DOSE (2X325MG) PO PRN ×3 (05:18→20:38)
[2020-10-04] MEDS: SODIUM CHLORIDE 0.9% INJ 10 ML SYR IV SCH ×2 (05:18→17:52)
[2020-10-04] MEDS: LEVOTHYROXINE 50MCG TABLET (0.05MG) PO SCH (05:18)
[2020-10-04 05:42] LABS: HEMATOCRIT 30.5 % (36.0-47.0); HEMOGLOBIN 9.3 g/dl (12.0-15.5); MEAN CORPUSCULAR HEMOGLOBIN 26.3 pg (27.0-33.0); MEAN CORPUSCULAR HGB CONC 30.5 g/dl (32.0-36.5); MEAN CORPUSCULAR VOLUME 86.2 fl (80.0-96.0); PLATELET COUNT, AUTOMATED 583 10^3/uL (150-450); RED BLOOD COUNT 3.54 10^6/uL (4.00-5.40); WHITE BLOOD COUNT 16.8 10^3/uL (4.0-10.0)
[2020-10-04 05:58] LABS: BLOOD UREA NITROGEN 9 MG/DL (7-18); CALCIUM LEVEL 7.3 MG/DL (8.8-10.2); CARBON DIOXIDE LEVEL 33 MEQ/L (21-32); CHLORIDE LEVEL 98 MEQ/L (98-107); CREATININE FOR GFR 0.28 MG/DL (0.55-1.30); GLOMERULAR FILTRATION RATE > 60.0 (>45); GLUCOSE, FASTING 112 MG/DL (70-100); POTASSIUM SERUM 3.8 MEQ/L (3.5-5.1); SODIUM LEVEL 136 MEQ/L (136-145)
[2020-10-04 06:00] VITALS: BP 110/61
[2020-10-04 06:29] VITALS: BP 110/61
[2020-10-04] MEDS: HumaLOG INSULIN (NovoLOG) PER UNIT SC SCH ×4 (07:22→20:53)
[2020-10-04] MEDS: ONDANSETRON 4 MG ORAL DISINTEGRATING TAB PO PRN (07:42)
[2020-10-04] MEDS: CYANOCOBALAMIN 250 MCG TABLET PO SCH (08:31)
[2020-10-04] MEDS: ASPIRIN 81MG ENTERIC TABLET PO SCH (08:31)
[2020-10-04] MEDS: FLUCONAZOLE 50MG TABLET PO SCH (08:31)
[2020-10-04] MEDS: BACLOFEN 5MG PER 1/2 TABLET PO SCH (08:31)
[2020-10-04] MEDS: GABAPENTIN 300 MG CAP PO SCH ×3 (08:31→20:24)
[2020-10-04] MEDS: METOCLOPRAMIDE 5 MG TAB PO SCH ×2 (08:32→20:25)
[2020-10-04] MEDS: BUPRENORPHINE/NALOXONE 2-0.5MG SUBLINGUAL TABLET(SUBOXONE) SL SCH ×2 (08:32→20:25)
[2020-10-04] MEDS: FOLIC ACID 1 MG TAB PO SCH (08:32)
[2020-10-04] MEDS: oxyBUTYnin *DITROPAN XL* 5 MG TABCR PO SCH (08:32)
[2020-10-04] MEDS: FUROSEMIDE 20 MG TAB PO SCH (08:32)
[2020-10-04] MEDS: ENOXAPARIN 40MG/0.4ML SYRINGE (J1650 PER 10MG) SC SCH (08:32)
[2020-10-04] MEDS: DIAPER RELIEF PASTE (DESITIN) 60GM TOP SCH ×2 (08:32→20:25)
[2020-10-04] MEDS: MIRALAX *UNIT DOSE* 17GM PACKET PO SCH (08:33)
[2020-10-04] MEDS: NYSTATIN 100,000 UNITS/GM TOPICAL PWD 15 GM TOP SCH ×2 (08:33→20:26)
[2020-10-04] MEDS: diphenhydrAMINE 50MG/ML VIAL (J1200) IV PRN ×3 (08:41→23:14)
[2020-10-04] MEDS: SODIUM CHLORIDE 0.9% INJ 10 ML SYR IV PRN ×2 (12:00→23:15)
[2020-10-04] MEDS: HYDROCORTISONE 1% CREAM 30 GM TOP PRN (12:01)
--- NOTE | 2020-10-04 12:48 | ECHO ---
DATE OF PROCEDURE: 10/03/2020 Age: 65 Gender: Female Height: 65 inches Weight: 275 pounds Body Surface Area: 2.27 m2 PATIENT LOCATION: Outpatient. REFERRING PHYSICIAN: Estevan Stallings DO. INDICATION: CHF. MEASUREMENTS: 2D Measurements: RV 4.9 cm LV 4.7 cm Septum 1.2 cm Posterior wall 1.2 cm LA 4.0 cm LVEF 70-75% Doppler Measurements: AV off by more than 30 degrees LVOT Doppler interrogation angle off 10 degrees but measures 0.96 m/s LVOT 2.1 cm MV-E 62, A 80, EA ratio 0.8 Early mitral deceleration time 160 msec E prime medial 5, A prime medial 13, E prime lateral 7.8 Average E/E prime ratio 9.7/PCWP 13.9 mmHg PV not well visualized RVSP 40 mmHg IVC 2.0 cm COMMENTS: Normal sinus rhythm with incomplete right bundle branch block. A technically difficult study in light of the patient's body habitus, but diagnostically useful information was still obtained. M-mode and 2-dimensional echocardiography was performed with pulse, continuous wave, color flow, and tissue Doppler studies. Borderline concentric left ventricular hypertrophy with hyperkinetic wall motion. Slightly dilated left atrium with grade 1 LV diastolic dysfunction but normal estimated mean left atrial pressure at this time. At least mildly dilated right heart chambers with Doppler evidence of at least moderate pulmonary hypertension. IVC size was upper limits of normal to slightly dilated but adequate respiratory collapse in keeping with the central venous pressure upper limits of normal. Aortic root upper limits of normal in size. Three equal size mildly thickened aortic cusps with adequate cusp separation and no insufficiency. Mild degenerative changes of the mitral valvular apparatus with normal leaflet excursion and no posterior systolic buckling. No more than trace insufficiency. Normal appearing tricuspid valve with mild insufficiency. No apparent intracardiac mass. Very small pericardial effusion measuring 4 mm anteriorly and 2 mm posteriorly. No cardiac chamber compression. MTDD
[2020-10-04 14:00] VITALS: BP 119/74
[2020-10-04 14:05] LABS: ALBUMIN 1.24 GM/DL (3.29-5.55); ALBUMIN % 26.3 % (55.8-66.1)
[2020-10-04 14:06] LABS: ALPHA-1-GLOBULIN % 11.3 % (2.9-4.9); ALPHA-1-GLOBULINS 0.53 GM/DL (0.17-0.41); ALPHA-2-GLOBULINS 0.96 GM/DL (0.42-0.99); ALPHA-2-GLOBULINS % 20.5 % (7.1-11.8); BETA-1-GLOBULINS 0.25 GM/DL (0.28-0.60); BETA-1-GLOBULINS % 5.3 % (4.7-7.2); BETA-2-GLOBULINS 0.43 GM/DL (0.19-0.55); BETA-2-GLOBULINS % 9.1 % (3.2-6.5); GAMMA GLOBULIN % 27.5 % (11.1-18.8); GAMMA GLOBULINS 1.29 GM/DL (0.65-1.58)
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
[2020-10-04] MEDS: SENOKOT S TAB PO SCH (20:24)
[2020-10-04] MEDS: ATORVASTATIN 20 MG TAB PO SCH (20:25)
[2020-10-04] MEDS: DULoxetine 30MG CAPSULE (CYMBALTA) PO SCH (20:25)
[2020-10-04] MEDS: FERROUS GLUCONATE 324 MG TAB PO SCH (20:25)
[2020-10-04] MEDS ORDERED: BACLOFEN 10 MG TAB PO SCH (21:00)
[2020-10-04 22:00] VITALS: BP 160/82
[2020-10-05] MEDS: PIPERACILLIN/TAZOBACTAM SOD 3.375 GM in D5W MINI-BAG PLUS 50 ML IV SCH ×4 (03:32→21:46)
[2020-10-05] MEDS: LEVOTHYROXINE 50MCG TABLET (0.05MG) PO SCH (05:55)
[2020-10-05] MEDS: ACETAMINOPHEN TAB 650MG DOSE (2X325MG) PO PRN ×3 (05:55→18:49)
[2020-10-05] MEDS: SODIUM CHLORIDE 0.9% INJ 10 ML SYR IV SCH ×2 (05:56→17:37)
[2020-10-05 06:00] VITALS: BP 122/68
[2020-10-05 06:18] LABS: HEMATOCRIT 31.4 % (36.0-47.0); HEMOGLOBIN 9.8 g/dl (12.0-15.5); MEAN CORPUSCULAR HEMOGLOBIN 26.6 pg (27.0-33.0); MEAN CORPUSCULAR HGB CONC 31.2 g/dl (32.0-36.5); MEAN CORPUSCULAR VOLUME 85.1 fl (80.0-96.0); PLATELET COUNT, AUTOMATED 629 10^3/uL (150-450); RED BLOOD COUNT 3.69 10^6/uL (4.00-5.40); WHITE BLOOD COUNT 15.7 10^3/uL (4.0-10.0)
[2020-10-05 06:38] LABS: BLOOD UREA NITROGEN 7 MG/DL (7-18); CALCIUM LEVEL 7.9 MG/DL (8.8-10.2); CARBON DIOXIDE LEVEL 33 MEQ/L (21-32); CHLORIDE LEVEL 98 MEQ/L (98-107); CREATININE FOR GFR 0.23 MG/DL (0.55-1.30); GLOMERULAR FILTRATION RATE > 60.0 (>45); GLUCOSE, FASTING 84 MG/DL (70-100); SODIUM LEVEL 136 MEQ/L (136-145)
[2020-10-05] MEDS: HumaLOG INSULIN (NovoLOG) PER UNIT SC SCH ×4 (07:30→21:00)
[2020-10-05] MEDS ORDERED: IBUPROFEN 400MG TAB PO ONE (08:45)
[2020-10-05] MEDS: MIRALAX *UNIT DOSE* 17GM PACKET PO SCH (08:47)
[2020-10-05] MEDS: NYSTATIN 100,000 UNITS/GM TOPICAL PWD 15 GM TOP SCH ×2 (08:48→21:47)
[2020-10-05] MEDS: DIAPER RELIEF PASTE (DESITIN) 60GM TOP SCH ×2 (08:49→21:47)
[2020-10-05] MEDS: FLUCONAZOLE 50MG TABLET PO SCH (08:49)
[2020-10-05] MEDS: GABAPENTIN 300 MG CAP PO SCH ×3 (08:49→21:47)
[2020-10-05] MEDS: LIDOCAINE 5% (LIDODERM) PATCH TD SCH (08:49)
[2020-10-05] MEDS: ASPIRIN 81MG ENTERIC TABLET PO SCH (08:50)
[2020-10-05] MEDS: FUROSEMIDE 20 MG TAB PO SCH (08:50)
[2020-10-05] MEDS: CYANOCOBALAMIN 250 MCG TABLET PO SCH (08:50)
[2020-10-05] MEDS: BUPRENORPHINE/NALOXONE 2-0.5MG SUBLINGUAL TABLET(SUBOXONE) SL SCH ×2 (08:50→21:47)
[2020-10-05] MEDS: FOLIC ACID 1 MG TAB PO SCH (08:50)
[2020-10-05] MEDS: METOCLOPRAMIDE 5 MG TAB PO SCH ×2 (08:50→21:48)
[2020-10-05] MEDS: ENOXAPARIN 40MG/0.4ML SYRINGE (J1650 PER 10MG) SC SCH (08:51)
[2020-10-05] MEDS ORDERED: BACLOFEN 5MG PER 1/2 TABLET PO SCH (09:00)
[2020-10-05] MEDS ORDERED: SOLIFENACIN 5 MG TAB PO SCH (09:00)
--- NOTE | 2020-10-05 10:36 | IPN ---
PROGRESS NOTE DATE: 10/04/2020 Nadege had a rash which was diffuse, maculopapular involving cheeks, arms, legs. It is pruritic. She had been started on two new medications yesterday, oxybutynin and baclofen. She also was started on fluconazole on 10/03/2020 for candidiasis. She has had no fever, no chills, no nausea, vomiting, or diarrhea. LABORATORY DATA: White count is 16.8, hemoglobin 9.3, hematocrit 30.5, platelets 583, sodium 136, potassium 3.8, chloride 98, bicarbonate 33, BUN 9, creatinine 0.28, glucose 112, calcium 7.3. Culture from the decubitus ulcer had Pasteurella multocida, Enterococcus faecalis, and Enterococcus avium. MEDICATIONS: Currently: - day # 4 of IV Zosyn - day #2 of by mouth fluconazole PHYSICAL EXAMINATION: Temperature is 97.7, pulse 101, respirations 17, blood pressure 119/74, oxygen saturation 97% on 2 liters nasal cannula. Heart: Normal S1, S2, no murmurs. Lungs: Clear, no wheezes, rales, or rhonchi, diminished at the bases. Abdomen: Obese, soft, nontender, left colostomy. Extremities: +2 pitting edema, rash. Skin: Diffuse maculopapular rash, flushed cheeks bilaterally, erythema diffusely involving upper arms, and maculopapular rash on elbows. IMPRESSION: 1. Infected sacral decubitus ulcer with Pasteurella multocida, Enterococcus (E) faecalis, and Enterococcus avium. 2. Drug related rash. Unclear whether is related to oxybutynin, Diflucan, or baclofen although she has taken baclofen in the past. Oxybutynin was discontinued but also Diflucan and Zosyn could be culprits. Will monitor her rash on Benadryl and may need to discontinue other medications. 3. Mucocutaneous candidiasis. Currently on Diflucan, nystatin powder, and InterDry between thighs. 4. Bladder spasm with urinary incontinence and urine leakage. I have discussed the case with Dr. Barksdale who has agreed to consider placing a suprapubic catheter during this hospitalization. PLAN: Continue IV Zosyn 3.375 grams every 6 hours, by mouth Diflucan 150 mg daily, and will monitor the rash, if it worsens may need to discontinue antibiotics or change them to other regimen.
[2020-10-05] MEDS: hydrOXYzine 25 MG TAB PO PRN ×2 (11:15→18:48)
[2020-10-05] MEDS: ONDANSETRON 4 MG ORAL DISINTEGRATING TAB PO PRN (11:15)
[2020-10-05] MEDS: diphenhydrAMINE 50MG/ML VIAL (J1200) IV PRN (11:18)
[2020-10-05] MEDS: SODIUM CHLORIDE 0.9% INJ 10 ML SYR IV PRN (11:18)
[2020-10-05 14:00] VITALS: BP 139/85
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
[2020-10-05] MEDS: BACLOFEN 10 MG TAB PO SCH ×2 (17:38→21:48)
[2020-10-05] MEDS: SENOKOT S TAB PO SCH (21:46)
[2020-10-05] MEDS: DULoxetine 30MG CAPSULE (CYMBALTA) PO SCH (21:47)
[2020-10-05] MEDS: **NOTE PATIENT COMMENT** MISC XX SCH (21:48)
[2020-10-05] MEDS: ATORVASTATIN 20 MG TAB PO SCH (21:48)
[2020-10-05] MEDS: FERROUS GLUCONATE 324 MG TAB PO SCH (21:48)
[2020-10-05 22:00] VITALS: BP 132/82
[2020-10-05] MEDS: MOM 30ML SUSPENSION UDC PO PRN (22:05)
--- NOTE | 2020-10-06 02:06 | IPN ---
INFECTIOUS DISEASE PROGRESS NOTE DATE: 10/05/2020 SUBJECTIVE: Nadege was seen today with dressing changes with her nurses at the bedside. Nadege was upset. She is in chronic pain. She told the nurses that she was tired of living that way when I discussed with her possible need for transfer to a tertiary care center for possible need for plastic surgery and ileal conduit to decrease urinary leakage. She was hesitant about that. She has had no fever or chills. PHYSICAL EXAMINATION: HEENT: She has a trach collar at 28%. HEART: Normal S1, S2. No murmurs, rubs or gallops. LUNGS: Clear. No wheezes, rales or rhonchi. ABDOMEN: Morbidly obese, soft, nontender with a colostomy in the left lower quadrant with hard stool. EXTREMITIES: With +2 pitting edema bilaterally. SKIN: Diffuse erythema involving back of her thighs where the decubitus ulcer is. There is also a macular papular rash on the lower extremity then arm. Wood catheter in place. Skin is diffusely erythematous peeling. A decubitus ulcer in the sacral area is pretty large, measuring over 20 cm. There is one ischial ulcer on the left side that will be connecting with the sacral decubitus, there is probably only 1 cm of tissue in between the two ulcers. She has 2nd ischial ulcerations as well. Most of these ulcers are clean. The sacral decubitus ulcer, there is a small area of bone exposed. LABORATORY DATA: White count 15.7, hemoglobin 9.8, hematocrit 31.4, platelets 629,000. ESR 92. Sodium 136, potassium 4, chloride 98, bicarb 33, BUN 7, creatinine 0.3, glucose 84, calcium 7.9. CRP 14.9. IMPRESSION: 1. Sacral decubitus ulcer and bilateral ischial ulcers on I.V. Zosyn as she had leukocytosis; status post multiple debridements: Now the dura has exposed bone, there is a concern for osteomyelitis. 2. Urinary catheter leakage secondary to bladder spasm and persistent leaking: Urine has caused contact dermatitis with diffuse rash. 3. Neurogenic bladder with chronic Wood: Discussion has been done with Dr. Barksdale regarding suprapubic catheter versus ileal conduit, there is discussion about transferring to tertiary care center for better multidisciplinary management with plastic surgery. 4. Rash possibly drug related possibly Zosyn and Diflucan or from medications that Dr. French has started, which was Oxybutynin. PLAN: Continue for now Diflucan for a total of 5 days. Continue Zosyn; currently day #5. Case has been discussed with Dr. Estevan Stallings regarding possible transfer to a higher level of care and case also has been discussed with our painter decorator who also agrees with the plan. [facility]
[2020-10-06] MEDS: PIPERACILLIN/TAZOBACTAM SOD 3.375 GM in D5W MINI-BAG PLUS 50 ML IV SCH ×4 (04:10→22:01)
[2020-10-06] MEDS: LEVOTHYROXINE 50MCG TABLET (0.05MG) PO SCH (05:34)
[2020-10-06] MEDS: SODIUM CHLORIDE 0.9% INJ 10 ML SYR IV SCH ×2 (05:35→18:32)
[2020-10-06] MEDS: ACETAMINOPHEN TAB 650MG DOSE (2X325MG) PO PRN ×2 (05:35→16:35)
[2020-10-06 05:55] LABS: HEMATOCRIT 34.3 % (36.0-47.0); HEMOGLOBIN 10.4 g/dl (12.0-15.5); MEAN CORPUSCULAR HEMOGLOBIN 26.3 pg (27.0-33.0); MEAN CORPUSCULAR HGB CONC 30.3 g/dl (32.0-36.5); MEAN CORPUSCULAR VOLUME 86.6 fl (80.0-96.0); PLATELET COUNT, AUTOMATED 727 10^3/uL (150-450); RED BLOOD COUNT 3.96 10^6/uL (4.00-5.40); WHITE BLOOD COUNT 14.9 10^3/uL (4.0-10.0)
[2020-10-06 06:00] VITALS: BP 139/80
[2020-10-06 06:15] LABS: BLOOD UREA NITROGEN 6 MG/DL (7-18); CALCIUM LEVEL 7.5 MG/DL (8.8-10.2); CARBON DIOXIDE LEVEL 35 MEQ/L (21-32); CHLORIDE LEVEL 101 MEQ/L (98-107); CREATININE FOR GFR 0.32 MG/DL (0.55-1.30); GLOMERULAR FILTRATION RATE > 60.0 (>45); GLUCOSE, FASTING 81 MG/DL (70-100); POTASSIUM SERUM 4.1 MEQ/L (3.5-5.1); SODIUM LEVEL 139 MEQ/L (136-145)
[2020-10-06] MEDS: HumaLOG INSULIN (NovoLOG) PER UNIT SC SCH ×4 (07:30→21:00)
[2020-10-06] MEDS: MIRALAX *UNIT DOSE* 17GM PACKET PO SCH ×3 (08:07→22:01)
[2020-10-06] MEDS: ENOXAPARIN 40MG/0.4ML SYRINGE (J1650 PER 10MG) SC SCH (08:08)
[2020-10-06] MEDS: LIDOCAINE 5% (LIDODERM) PATCH TD SCH (08:08)
[2020-10-06] MEDS: SOLIFENACIN 5 MG TAB PO SCH (08:09)
[2020-10-06] MEDS: GABAPENTIN 300 MG CAP PO SCH ×4 (08:09→22:02)
[2020-10-06] MEDS: FUROSEMIDE 20 MG TAB PO SCH (08:10)
[2020-10-06] MEDS: FOLIC ACID 1 MG TAB PO SCH (08:10)
[2020-10-06] MEDS: BACLOFEN 10 MG TAB PO SCH ×3 (08:11→22:03)
[2020-10-06] MEDS: CYANOCOBALAMIN 250 MCG TABLET PO SCH (08:11)
[2020-10-06] MEDS: METOCLOPRAMIDE 5 MG TAB PO SCH ×3 (08:11→22:03)
[2020-10-06] MEDS: ASPIRIN 81MG ENTERIC TABLET PO SCH (08:11)
[2020-10-06] MEDS: FLUCONAZOLE 50MG TABLET PO SCH (08:11)
[2020-10-06] MEDS: BUPRENORPHINE/NALOXONE 2-0.5MG SUBLINGUAL TABLET(SUBOXONE) SL SCH (08:12)
[2020-10-06] MEDS: MOM 30ML SUSPENSION UDC PO PRN (08:24)
[2020-10-06] MEDS: NYSTATIN 100,000 UNITS/GM TOPICAL PWD 15 GM TOP SCH ×2 (08:25→22:02)
[2020-10-06] MEDS: DIAPER RELIEF PASTE (DESITIN) 60GM TOP SCH ×2 (08:25→22:02)
[2020-10-06 09:20] VITALS: BP 142/72
[2020-10-06] MEDS ORDERED: KETOROLAC 30 MG/ML 1ML VIAL IV ONE (10:15)
--- NOTE | 2020-10-06 10:59 | REP ---
INDICATION: Portable? for neck pain. COMPARISON: None TECHNIQUE: AP and lateral views FINDINGS: AP and lateral views of the neck soft tissues show the pharyngeal, hypopharyngeal and tracheal airways to be within normal limits. The anterior spinal soft tissues are within normal limits. There is a tracheostomy tube in place. The exam is markedly limited due to portable technique. IMPRESSION: As above <Electronically signed by Melquiades Evans > 10/06/20 [id number]
[2020-10-06] MEDS: SODIUM CHLORIDE 0.9% INJ 10 ML SYR IV PRN (12:34)
[2020-10-06 14:00] VITALS: BP 121/83
[2020-10-06] MEDS: HYDROCORTISONE 1% CREAM 30 GM TOP PRN (15:34)
[2020-10-06] MEDS: hydrOXYzine 25 MG TAB PO PRN (16:35)
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
[2020-10-06] MEDS: **NOTE PATIENT COMMENT** MISC XX SCH (21:00)
[2020-10-06] MEDS: MOM 30ML SUSPENSION UDC PO SCH ×2 (21:00→22:01)
[2020-10-06] MEDS: DULoxetine 30MG CAPSULE (CYMBALTA) PO SCH ×2 (21:00→22:03)
[2020-10-06] MEDS: ATORVASTATIN 20 MG TAB PO SCH ×2 (21:00→22:03)
[2020-10-06] MEDS: ACETAMINOPHEN TAB 650MG DOSE (2X325MG) PO SCH ×2 (21:00→22:04)
[2020-10-06] MEDS: SENOKOT S TAB PO SCH ×2 (21:00→22:02)
[2020-10-06] MEDS: FERROUS GLUCONATE 324 MG TAB PO SCH ×2 (21:00→22:03)
[2020-10-06 22:00] VITALS: BP 123/76
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
[2020-10-07 00:30] VITALS: BP 123/71
[2020-10-07 03:21] LABS: HEMATOCRIT 32.1 % (36.0-47.0); HEMOGLOBIN 9.7 g/dl (12.0-15.5); MEAN CORPUSCULAR HEMOGLOBIN 26.4 pg (27.0-33.0); MEAN CORPUSCULAR HGB CONC 30.2 g/dl (32.0-36.5); MEAN CORPUSCULAR VOLUME 87.2 fl (80.0-96.0); PLATELET COUNT, AUTOMATED 600 10^3/uL (150-450); RED BLOOD COUNT 3.68 10^6/uL (4.00-5.40); WHITE BLOOD COUNT 11.7 10^3/uL (4.0-10.0)
[2020-10-07 03:39] LABS: ALBUMIN 1.1 GM/DL (3.2-5.2); ALT/SGPT 11 U/L (12-78); BILIRUBIN,TOTAL 0.1 MG/DL (0.2-1.0); BLOOD UREA NITROGEN 7 MG/DL (7-18); C REACTIVE PROTEIN QUANTITATIV 7.83 MG/DL (0.00-0.30); CALCIUM LEVEL 7.1 MG/DL (8.8-10.2); CARBON DIOXIDE LEVEL 37 MEQ/L (21-32); CHLORIDE LEVEL 103 MEQ/L (98-107); CREATININE FOR GFR 0.28 MG/DL (0.55-1.30); GLOMERULAR FILTRATION RATE > 60.0 (>45); GLUCOSE, FASTING 73 MG/DL (70-100); POTASSIUM SERUM 3.9 MEQ/L (3.5-5.1); SODIUM LEVEL 141 MEQ/L (136-145); TOTAL PROTEIN 5.2 GM/DL (6.4-8.2)
[2020-10-07] MEDS: PIPERACILLIN/TAZOBACTAM SOD 3.375 GM in D5W MINI-BAG PLUS 50 ML IV SCH ×4 (04:34→22:21)
[2020-10-07] MEDS: SODIUM CHLORIDE 0.9% INJ 10 ML SYR IV SCH ×2 (05:15→17:46)
[2020-10-07] MEDS: LEVOTHYROXINE 50MCG TABLET (0.05MG) PO SCH (05:20)
[2020-10-07 06:00] VITALS: BP 132/72
[2020-10-07] MEDS: SODIUM CHLORIDE 0.9% INJ 10 ML SYR IV PRN (06:56)
[2020-10-07] MEDS: HumaLOG INSULIN (NovoLOG) PER UNIT SC SCH ×4 (07:30→21:00)
[2020-10-07] MEDS ORDERED: ISOVUE-370 76% 100ML VIAL As Ordered ONE (09:00)
[2020-10-07] MEDS ORDERED: BACLOFEN 10 MG TAB PO SCH (09:00)
--- NOTE | 2020-10-07 09:51 | REP ---
INDICATION: AMS. COMPARISON: 07/13/2020 TECHNIQUE: 4.5 mm contiguous transaxial sections were obtained from the skull base to the cerebral convexities with thin cuts through the posterior fossa without the administration of intravenous contrast. FINDINGS: Once again, there is patchy diffuse lucency throughout the deep cerebral white matter in a fashion unchanged from the prior exam. There are no acute extra-axial fluid collections. There is no shift of the midline structures. The ventricles are unchanged in size and configuration. There is no change in the appearance of the posterior fossa. Chronic stable soft tissue densities are seen in the mastoid air cells right greater than left status quo. IMPRESSION: Stable appearing chronic changes as described above. There is no evidence of an acute abnormality. <Electronically signed by Melquiades Evans > 10/07/20 [id number]
[2020-10-07] MEDS: MOM 30ML SUSPENSION UDC PO SCH ×3 (10:54→22:21)
[2020-10-07] MEDS: FLUCONAZOLE 50MG TABLET PO SCH (10:54)
[2020-10-07] MEDS: LIDOCAINE 5% (LIDODERM) PATCH TD SCH (10:54)
[2020-10-07] MEDS: MIRALAX *UNIT DOSE* 17GM PACKET PO SCH ×3 (10:54→22:21)
[2020-10-07] MEDS: ENOXAPARIN 40MG/0.4ML SYRINGE (J1650 PER 10MG) SC SCH (10:55)
[2020-10-07] MEDS: METOCLOPRAMIDE 5 MG TAB PO SCH ×3 (10:56→22:19)
[2020-10-07] MEDS: FOLIC ACID 1 MG TAB PO SCH (10:57)
[2020-10-07] MEDS: SOLIFENACIN 5 MG TAB PO SCH (10:59)
[2020-10-07] MEDS: GABAPENTIN 300 MG CAP PO SCH ×3 (10:59→22:19)
[2020-10-07] MEDS: ACETAMINOPHEN TAB 650MG DOSE (2X325MG) PO SCH ×2 (10:59→16:21)
[2020-10-07] MEDS: ASPIRIN 81MG ENTERIC TABLET PO SCH (11:00)
[2020-10-07] MEDS: BUPRENORPHINE/NALOXONE 2-0.5MG SUBLINGUAL TABLET(SUBOXONE) SL SCH (11:00)
[2020-10-07] MEDS: FUROSEMIDE 20 MG TAB PO SCH (11:01)
[2020-10-07] MEDS: CYANOCOBALAMIN 250 MCG TABLET PO SCH (11:16)
[2020-10-07] MEDS: HYDROCORTISONE 1% CREAM 30 GM TOP PRN (11:20)
[2020-10-07] MEDS: DIAPER RELIEF PASTE (DESITIN) 60GM TOP SCH ×2 (11:20→22:21)
[2020-10-07] MEDS: NYSTATIN 100,000 UNITS/GM TOPICAL PWD 15 GM TOP SCH ×2 (11:20→22:21)
--- NOTE | 2020-10-07 11:23 | REPVR ---
PROCEDURE INFORMATION: Exam: CT Neck With Contrast Exam date and time: 10/07/2020 9:39 AM Age: 65 years old Clinical indication: Other: AMS, neck pain TECHNIQUE: Imaging protocol: Computed tomography images of the neck with contrast. Radiation optimization: All CT scans at this facility use at least one of these dose optimization techniques: automated exposure control; mA and/or kV adjustment per patient size (includes targeted exams where dose is matched to clinical indication); or iterative reconstruction. Contrast material: ISOVUE 370; Contrast volume: 75 ml; Contrast route: INTRAVENOUS (IV); COMPARISON: 1. CT Neck without contrast 05/10/2020 4:[address] Chest with contrast 05/30/2019 3:54:40 AM FINDINGS: Nasopharynx: Unremarkable. Oropharynx: Unremarkable. No significant tonsillar enlargement. Hypopharynx: Unremarkable. Larynx: Unremarkable. Normal epiglottis. Retropharyngeal space: Unremarkable. Submandibular/Parotid glands: Normal. Glands are normal in size. Thyroid: Normal. No enlarged or calcified nodules. Lymph nodes: Unremarkable. No lymphadenopathy. Trachea: There is a tracheostomy. Lungs: There is a left apical lung nodule measuring 3.5 mm, stable since 2019, presumably benign. No specific follow-up is indicated for this nodule. Bones/joints: No acute fracture seen. Moderate degenerative changes at C1-C2. Severe right facet arthropathy from C2-C3 through C4-C5. There is slight grade 1 degenerative anterolisthesis of C4 on C5. Advanced degenerative disc disease with uncovertebral arthropathy at C5-C6 and C6-C7. At C2-C3, a right paracentral disc protrusion causes mild central spinal canal stenosis. Central spinal canal stenosis is mild to moderate at C5-C6. [id number] neural foraminal stenoses on the right at C3-C4 and bilaterally at C5-C6 and C6-C7. Upper extent of thoracic fixation is visualized. Vasculature: [id number] calcified carotid atherosclerosis. Soft tissues: Unremarkable. No significant soft tissue swelling. IMPRESSION: 1. No acute findings identified. 2. Cervical spine degenerative changes, as above. Electronically signed by: Jenna Hooks On 10/07/2020 11:23:02 AM
[2020-10-07 14:00] VITALS: BP 139/89
--- NOTE | 2020-10-07 14:09 | REP ---
INDICATION: swelling in hands bilaterally. COMPARISON: None. TECHNIQUE: Multiple ultrasonographic images of the deep venous structures of the bilateral upper extremity were obtained to rule out deep venous thrombosis. FINDINGS: Right: The right subclavian vein was unable to be interrogated with ultrasound. There is a linear echogenic area seen in the basilic vein with echogenic material seen surrounding it consistent with thrombus formation around the midportion of a PICC line. On the left: Ultrasonographic evaluation of the imageable left arm deep venous structures was obtained in a markedly limited fashion due to the patient's inability to assume positions necessary to facilitate the exam. IMPRESSION: 1. On the right there is evidence of thrombus formation surrounding a PICC line as described above. 2. Inability to successfully interrogate the deep venous structures of the left upper extremity in a diagnostic fashion as described above. A thrombus cannot be ruled out. <Electronically signed by Melquiades Evans > 10/07/20 [id number]
[2020-10-07] MEDS ORDERED: ACETAMINOPHEN 500 MG TAB PO SCH (16:00)
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
[2020-10-07] MEDS: FERROUS GLUCONATE 324 MG TAB PO SCH ×2 (21:00→22:20)
[2020-10-07] MEDS: **NOTE PATIENT COMMENT** MISC XX SCH (21:00)
[2020-10-07] MEDS: SENOKOT S TAB PO SCH ×2 (21:00→22:20)
[2020-10-07] MEDS: ACETAMINOPHEN 500 MG TAB PO SCH ×2 (21:00→22:20)
[2020-10-07] MEDS: ATORVASTATIN 20 MG TAB PO SCH ×2 (21:00→22:19)
[2020-10-07 22:00] VITALS: BP 110/58
[2020-10-07] MEDS: DULoxetine 30MG CAPSULE (CYMBALTA) PO SCH (22:20)
[2020-10-08 02:45] VITALS: O2SAT 97
[2020-10-08] MEDS: PIPERACILLIN/TAZOBACTAM SOD 3.375 GM in D5W MINI-BAG PLUS 50 ML IV SCH ×4 (04:18→21:52)
[2020-10-08 06:00] VITALS: BP 109/68
[2020-10-08] MEDS: SODIUM CHLORIDE 0.9% INJ 10 ML SYR IV SCH ×2 (06:04→17:57)
[2020-10-08] MEDS: LEVOTHYROXINE 50MCG TABLET (0.05MG) PO SCH (06:04)
--- NOTE | 2020-10-08 06:06 | REPVR ---
PROCEDURE INFORMATION: Exam: US Duplex Left Upper Extremity Veins, Limited Exam date and time: 10/08/2020 5:46 AM Age: 65 years old Clinical indication: Condition or disease; Embolism or thrombosis; Upper extremity, right; Additional info: Re-evaluate left side for thrombus, TECHNIQUE: Imaging protocol: Real-time Duplex ultrasound of the Left Upper Extremity with 2-D hernandez scale, color Doppler flow and spectral waveform analysis with image documentation. Limited exam focused on the left upper extremity veins. COMPARISON: US DUPLEX EXT UPPER VEINS BILAT 10/07/2020 1:02 PM FINDINGS: Left deep veins: Unremarkable. Axillary and brachial veins are patent throughout without thrombus. Normal Doppler waveforms. Normal compressibility and/or augmentation response. Visualized internal jugular and subclavian veins are patent. Left superficial veins: Unremarkable. Visualized cephalic and basilic veins are patent without thrombus. Soft tissues: Unremarkable. IMPRESSION: No evidence of deep vein thrombosis. Electronically signed by: Joaquim Boyer On 10/08/2020 06:05:25 AM
[2020-10-08 06:35] LABS: HEMATOCRIT 35.2 % (36.0-47.0); HEMOGLOBIN 10.5 g/dl (12.0-15.5); MEAN CORPUSCULAR HEMOGLOBIN 26.2 pg (27.0-33.0); MEAN CORPUSCULAR HGB CONC 29.8 g/dl (32.0-36.5); MEAN CORPUSCULAR VOLUME 87.8 fl (80.0-96.0); PLATELET COUNT, AUTOMATED 652 10^3/uL (150-450); RED BLOOD COUNT 4.01 10^6/uL (4.00-5.40); WHITE BLOOD COUNT 14.8 10^3/uL (4.0-10.0)
[2020-10-08 07:09] LABS: BLOOD UREA NITROGEN 8 MG/DL (7-18); CALCIUM LEVEL 7.6 MG/DL (8.8-10.2); CARBON DIOXIDE LEVEL 32 MEQ/L (21-32); CHLORIDE LEVEL 102 MEQ/L (98-107); CREATININE FOR GFR 0.28 MG/DL (0.55-1.30); GLOMERULAR FILTRATION RATE > 60.0 (>45); GLUCOSE, FASTING 73 MG/DL (70-100); POTASSIUM SERUM 4.2 MEQ/L (3.5-5.1); SODIUM LEVEL 140 MEQ/L (136-145)
[2020-10-08] MEDS: HumaLOG INSULIN (NovoLOG) PER UNIT SC SCH ×4 (07:30→21:00)
[2020-10-08] MEDS: MIRALAX *UNIT DOSE* 17GM PACKET PO SCH ×2 (09:37→21:51)
[2020-10-08] MEDS: MOM 30ML SUSPENSION UDC PO SCH ×2 (09:38→21:50)
[2020-10-08] MEDS: ENOXAPARIN 40MG/0.4ML SYRINGE (J1650 PER 10MG) SC SCH (09:38)
[2020-10-08] MEDS: NYSTATIN 100,000 UNITS/GM TOPICAL PWD 15 GM TOP SCH ×2 (09:38→21:51)
[2020-10-08] MEDS: DIAPER RELIEF PASTE (DESITIN) 60GM TOP SCH ×2 (09:39→21:52)
[2020-10-08] MEDS: FLUCONAZOLE 50MG TABLET PO SCH (09:39)
[2020-10-08] MEDS: LIDOCAINE 5% (LIDODERM) PATCH TD SCH (09:40)
[2020-10-08] MEDS: ACETAMINOPHEN 500 MG TAB PO SCH ×3 (09:40→21:52)
[2020-10-08] MEDS: METOCLOPRAMIDE 5 MG TAB PO SCH ×2 (09:40→21:50)
[2020-10-08] MEDS: BUPRENORPHINE/NALOXONE 2-0.5MG SUBLINGUAL TABLET(SUBOXONE) SL SCH (09:40)
[2020-10-08] MEDS: FOLIC ACID 1 MG TAB PO SCH (09:40)
[2020-10-08] MEDS: SOLIFENACIN 5 MG TAB PO SCH (09:40)
[2020-10-08] MEDS: ASPIRIN 81MG ENTERIC TABLET PO SCH (09:40)
[2020-10-08] MEDS: FUROSEMIDE 20 MG TAB PO SCH (09:41)
--- NOTE | 2020-10-08 09:59 | REP ---
INDICATION: increased oxygen requirements. COMPARISON: 09/07/2020. TECHNIQUE: Single portable AP view of the chest was performed. FINDINGS: There is mild elevation of the right hemidiaphragm unchanged. There is bibasilar fibro atelectatic change appearing similar to the prior study. The heart and mediastinum are unchanged. There is a right arm PICC line with the tip in the superior vena cava. Tracheostomy tube is noted. Metallic rods and screws are seen in the superior thoracic spine. IMPRESSION: Stable bibasilar fibro atelectatic changes. <Electronically signed by Bishop Hull > 10/08/20 0953
[2020-10-08] MEDS: BACLOFEN 5MG PER 1/2 TABLET PO SCH ×2 (11:46→21:50)
[2020-10-08] MEDS: CYANOCOBALAMIN 250 MCG TABLET PO SCH (11:46)
[2020-10-08 13:01] VITALS: O2SAT 99
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
[2020-10-08] MEDS: **NOTE PATIENT COMMENT** MISC XX SCH (21:00)
[2020-10-08] MEDS: DULoxetine 30MG CAPSULE (CYMBALTA) PO SCH (21:50)
[2020-10-08] MEDS: SENOKOT S TAB PO SCH (21:50)
[2020-10-08] MEDS: ATORVASTATIN 20 MG TAB PO SCH (21:50)
[2020-10-08] MEDS: FERROUS GLUCONATE 324 MG TAB PO SCH (21:51)
[2020-10-08] MEDS: ENOXAPARIN 120MG/0.8ML SYRINGE (J1650 PER 10MG) SC SCH (21:51)
[2020-10-08 22:00] VITALS: BP_SYST 131; BP_DIAS 80; BP_DIAS 89
[2020-10-09] MEDS: hydrOXYzine 25 MG TAB PO PRN (01:28)
[2020-10-09] MEDS: KETOROLAC 30 MG/ML 1ML VIAL IV PRN ×3 (01:29→22:25)
[2020-10-09] MEDS: diphenhydrAMINE 50MG/ML VIAL (J1200) IV PRN ×2 (01:29→08:36)
[2020-10-09] MEDS: POLYVINYL ALCOHOL OPHTH SOLN 15 ML(LIQUITEARS) OU PRN (01:29)
[2020-10-09] MEDS: PIPERACILLIN/TAZOBACTAM SOD 3.375 GM in D5W MINI-BAG PLUS 50 ML IV SCH ×4 (04:12→21:25)
[2020-10-09 05:00] VITALS: O2SAT 96
[2020-10-09] MEDS: LEVOTHYROXINE 50MCG TABLET (0.05MG) PO SCH (05:41)
[2020-10-09] MEDS: SODIUM CHLORIDE 0.9% INJ 10 ML SYR IV SCH ×2 (05:43→17:07)
[2020-10-09 06:00] VITALS: BP 131/85
[2020-10-09 06:10] LABS: HEMATOCRIT 32.1 % (36.0-47.0); HEMOGLOBIN 9.7 g/dl (12.0-15.5); MEAN CORPUSCULAR HEMOGLOBIN 26.2 pg (27.0-33.0); MEAN CORPUSCULAR HGB CONC 30.2 g/dl (32.0-36.5); MEAN CORPUSCULAR VOLUME 86.8 fl (80.0-96.0); PLATELET COUNT, AUTOMATED 598 10^3/uL (150-450)
[2020-10-09 06:26] LABS: BLOOD UREA NITROGEN 9 MG/DL (7-18); CALCIUM LEVEL 7.8 MG/DL (8.8-10.2); CARBON DIOXIDE LEVEL 37 MEQ/L (21-32); CHLORIDE LEVEL 100 MEQ/L (98-107); GLOMERULAR FILTRATION RATE > 60.0 (>45); GLUCOSE, FASTING 92 MG/DL (70-100); POTASSIUM SERUM 3.8 MEQ/L (3.5-5.1); SODIUM LEVEL 139 MEQ/L (136-145)
[2020-10-09] MEDS: HumaLOG INSULIN (NovoLOG) PER UNIT SC SCH ×4 (07:30→22:51)
[2020-10-09] MEDS: GABAPENTIN 300 MG CAP PO SCH ×3 (08:35→21:25)
[2020-10-09] MEDS: BACLOFEN 5MG PER 1/2 TABLET PO SCH ×2 (08:35→21:26)
[2020-10-09] MEDS: METOCLOPRAMIDE 5 MG TAB PO SCH ×2 (08:35→21:27)
[2020-10-09] MEDS: FLUCONAZOLE 50MG TABLET PO SCH (08:35)
[2020-10-09] MEDS: ASPIRIN 81MG ENTERIC TABLET PO SCH (08:35)
[2020-10-09] MEDS: FOLIC ACID 1 MG TAB PO SCH (08:36)
[2020-10-09] MEDS: CYANOCOBALAMIN 250 MCG TABLET PO SCH (08:36)
[2020-10-09] MEDS: FUROSEMIDE 20 MG TAB PO SCH (08:36)
[2020-10-09] MEDS: DIAPER RELIEF PASTE (DESITIN) 60GM TOP SCH ×2 (08:37→21:27)
[2020-10-09] MEDS: NYSTATIN 100,000 UNITS/GM TOPICAL PWD 15 GM TOP SCH ×2 (08:37→21:28)
[2020-10-09] MEDS: MIRALAX *UNIT DOSE* 17GM PACKET PO SCH ×2 (08:37→21:24)
[2020-10-09] MEDS: LIDOCAINE 5% (LIDODERM) PATCH TD SCH (08:37)
[2020-10-09] MEDS: MOM 30ML SUSPENSION UDC PO SCH ×2 (08:37→21:24)
[2020-10-09] MEDS: ENOXAPARIN 120MG/0.8ML SYRINGE (J1650 PER 10MG) SC SCH ×2 (08:38→21:25)
[2020-10-09] MEDS: ACETAMINOPHEN 500 MG TAB PO SCH ×3 (08:39→21:26)
[2020-10-09] MEDS: SODIUM CHLORIDE 0.9% INJ 10 ML SYR IV PRN ×2 (08:40→23:06)
[2020-10-09] MEDS: SOLIFENACIN 5 MG TAB PO SCH (08:46)
[2020-10-09] MEDS ORDERED: LIDOCAINE 1% MDV 20ML VIAL As Ordered ONE (13:05)
[2020-10-09 14:00] VITALS: BP 126/83
[2020-10-09] MEDS: SANTYL OINT 30GM TOP SCH (14:06)
--- NOTE | 2020-10-09 14:13 | IPNPDOC ---
Subjective General Date Seen: October 09, 2020 Subject Chief Complaint/History The patient is a 65-year-old female admitted with a reason for visit of Uti, Overactive Bladder. Patient seen and examined. Sacral and bilateral ischial wounds. Patient states she is still feeling sick, but better than before. No pain. Complains with dressing changes. Tolerating regular diet. Current Medications Current Medications Current Medications Medications (Trade) Dose Ordered Sig/Yonatan Route PRN Reason Start Time Stop Time Status Last Admin Dose Admin Acetaminophen (Tylenol Tab) 650 mg Q4HP PRN PO PAIN OR DISCOMFORT 09/07/20 21:10 10/06/20 17:47 DC 10/06/20 16:35 Acetaminophen (Tylenol Tab) 1,000 mg TID PO 10/06/20 21:00 10/07/20 16:32 DC 10/07/20 16:21 Acetaminophen (Tylenol Tab) 1,000 mg TID PO 10/07/20 16:00 Cancel Acetaminophen (Tylenol Tab) 1,000 mg TID PO 10/07/20 21:00 10/09/20 08:39 Albuterol Sulfate (Proventil Neb) 2.5 mg Q6HP PRN NEB SOB/WHEEZING 09/17/20 10:20 Artificial Tears (Akwa Tears) 2 drop TID PRN OU DRY EYES 09/07/20 13:55 10/09/20 01:29 Aspirin (Ecotrin) 81 mg DAILY PO 09/07/20 09:00 10/09/20 08:35 Atorvastatin Calcium (Lipitor) 40 mg QHS PO 09/07/20 21:00 10/08/20 21:50 Baclofen (Lioresal) 5 mg BID PO 10/08/20 09:00 10/09/20 08:35 Baclofen (Lioresal) 5 mg BID PO 10/03/20 21:00 10/04/20 18:00 DC 10/04/20 08:31 Baclofen (Lioresal) 5 mg DAILY PO 10/05/20 09:00 10/05/20 11:40 DC 10/05/20 08:50 Baclofen (Lioresal) 5 mg TID PO 10/07/20 09:00 10/07/20 06:49 DC Baclofen (Lioresal) 10 mg QHS PO 10/04/20 21:00 10/05/20 11:40 DC 10/04/20 20:25 Baclofen (Lioresal) 10 mg TID PO 10/05/20 16:00 10/06/20 22:32 DC 10/06/20 22:03 Buprenorphine/ Naloxone (Suboxone 2/ 0.5mg) 1 tab BID SL 09/28/20 21:00 09/29/20 10:30 DC 09/29/20 08:27 Buprenorphine/ Naloxone (Suboxone 2/ 0.5mg) 1 tab QPM SL 09/29/20 21:00 10/02/20 22:06 DC 10/02/20 20:41 Buprenorphine/ Naloxone (Suboxone 2/ 0.5mg) 1 tab Taper DAILY SL 10/03/20 09:00 10/09/20 08:59 DC 10/08/20 09:40 Buprenorphine/ Naloxone (Suboxone 2/ 0.5mg) 2 tab BID SL 09/07/20 21:00 09/28/20 11:12 DC 09/28/20 05:42 Buprenorphine/ Naloxone (Suboxone 2/ 0.5mg) 2 tab DAILY SL 09/30/20 09:00 10/02/20 22:06 DC 10/02/20 09:01 Cefepime HCl 1 gm/ Dextrose 50 ml @ 100 mls/hr Q12H IV 09/19/20 21:00 09/20/20 18:32 DC 09/20/20 09:18 Cefepime HCl 1 gm/ Dextrose 50 ml @ 100 mls/hr Q8H IV 09/20/20 18:25 09/28/20 11:43 DC 09/28/20 03:03 Cefepime HCl 1 gm/ Dextrose 50 ml @ 100 mls/hr Q8H IV 10/01/20 07:00 10/01/20 21:05 DC 10/01/20 16:10 Ceftriaxone Sodium 1 gm/ Dextrose 50 ml @ 100 mls/hr Q24H IV 09/07/20 13:00 09/07/20 14:56 DC 09/07/20 13:43 Cod Liver Oil/ Zinc Oxide (Desitin) 1 dose BID TOP 10/02/20 09:00 10/09/20 08:37 Collagenase (SantyL) Apply to wound bed ... DAILY TOP 10/09/20 09:00 Cyanocobalamin (Vitamin B12) 250 mcg DAILY PO 09/07/20 09:00 10/09/20 08:36 Dextrose (Dextrose 50%) 25 ml ASDIRECTED PRN IV SEE LABEL COMMENTS 09/07/20 14:10 10/07/20 06:56 Diphenhydramine HCl (Benadryl) 25 mg Q6HP PRN IV drug rash or itchy 10/04/20 08:00 10/09/20 08:36 Docusate Sodium (Colace) 100 mg BID PO 09/07/20 21:00 09/30/20 16:42 DC 09/30/20 09:39 Docusate Sodium (Colace) 200 mg BID PO 09/30/20 21:00 10/02/20 21:50 DC 10/02/20 20:41 Duloxetine HCl (Cymbalta) 60 mg QHS PO 09/07/20 21:00 10/08/20 21:50 Enoxaparin Sodium (Lovenox) 40 mg DAILY SC 09/08/20 09:00 10/08/20 16:07 DC 10/08/20 09:38 Enoxaparin Sodium (Lovenox) 120 mg BID SC 10/08/20 21:00 10/09/20 08:38 Famotidine (Pepcid) 20 mg QHS PRN PO HEARTBURN 09/07/20 13:55 Fentanyl Citrate (Sublimaze) 25 mcg Q5MP PRN IV PAIN LEVEL 5-10 09/15/20 19:00 09/15/20 20:30 DC Fentanyl Citrate (Sublimaze) 25 mcg Q5MP PRN IV PAIN LEVEL 5-10 09/20/20 17:10 09/20/20 18:10 DC Fentanyl Citrate (Sublimaze) 25 mcg Q5MP PRN IV PAIN LEVEL 5-10 09/20/20 17:45 09/20/20 18:45 DC Ferrous Gluconate (Fergon) 324 mg QHS PO 09/07/20 21:00 10/08/20 21:51 Fluconazole (Diflucan) 150 mg DAILY PO 10/03/20 09:00 10/13/20 08:59 10/09/20 08:35 Folic Acid (Folic Acid) 1 mg DAILY PO 09/07/20 09:00 10/09/20 08:36 Furosemide (Lasix) 20 mg DAILY PO 09/23/20 09:00 09/24/20 08:53 DC 09/23/20 11:18 Furosemide (Lasix) 40 mg DAILY PO 09/08/20 09:00 09/07/20 14:10 DC Furosemide (Lasix) 40 mg DAILY PO 09/10/20 09:00 09/10/20 14:40 DC 09/10/20 08:50 Furosemide (Lasix) 40 mg DAILY PO 09/12/20 09:00 09/21/20 07:14 DC 09/19/20 09:22 Furosemide (Lasix) 40 mg DAILY PO 09/24/20 09:00 10/09/20 08:36 Gabapentin (Neurontin) 900 mg TID PO 09/07/20 16:00 10/09/20 08:35 Glucagon (Glucagon) 1 mg ASDIRECTED PRN SC SEE LABEL COMMENTS 09/07/20 14:10 Glucose (Glucose) 16 GM ASDIRECTED PRN PO SEE LABEL COMMENTS 09/07/20 14:10 Heparin Sodium (Heparin (Flush)) 200 units ASDIRECTED PRN IV SEE LABEL COMMENTS 09/10/20 13:20 09/21/20 15:43 DC 09/19/20 20:42 Heparin Sodium (Heparin (Flush)) 200 units ASDIRECTED PRN IV SEE LABEL COMMENTS 09/21/20 16:00 09/28/20 11:57 DC 09/27/20 09:37 Heparin Sodium (Heparin (Flush)) 200 units ASDIRECTED PRN IV SEE LABEL COMMENTS 10/02/20 19:00 10/09/20 08:39 Heparin Sodium (Heparin (Flush)) 200 units PICC IV 09/10/20 18:00 09/21/20 15:43 DC 09/21/20 05:51 Heparin Sodium (Heparin (Flush)) 200 units PICC IV 09/21/20 18:00 09/28/20 11:57 DC 09/28/20 05:40 Heparin Sodium (Heparin (Flush)) 200 units PICC IV 10/03/20 06:00 10/09/20 05:43 Home Med (Med Rec Complete!) ASDIRECTED XX 09/07/20 13:00 09/07/20 13:00 DC Hydrocortisone (Hydrocortisone 1% Cream) APPLY TO RASH ON CHEST ... BIDP PRN TOP itchy rash 10/04/20 09:40 10/07/20 11:20 Hydromorphone HCl (Dilaudid) 0.2 mg Q5MP PRN IV PAIN LEVEL 4-7 09/20/20 17:10 09/20/20 18:10 DC Hydromorphone HCl (Dilaudid) 0.2 mg Q5MP PRN IV PAIN LEVEL 4-7 09/20/20 17:45 09/20/20 18:45 DC Hydroxyzine HCl (Atarax) 25 mg TID PRN PO ANXIETY 09/07/20 13:55 10/09/20 01:28 Insulin Human Lispro (HumaLOG INSULIN) SEE PROTOCOL TABLE AC SC 09/07/20 17:30 10/09/20 12:41 Insulin Human Lispro (HumaLOG INSULIN) SEE PROTOCOL TABLE QHS SC 09/07/20 21:00 Ketorolac Tromethamine (ToRADol) 15 mg Q6HP PRN IV pain 10/06/20 17:45 10/11/20 17:44 10/09/20 08:39 Lactated Ringer's 1,000 ml @ 100 mls/hr Q10H IV 09/15/20 19:00 09/15/20 20:30 DC Lactated Ringer's 1,000 ml @ 100 mls/hr Q10H IV 09/20/20 17:10 09/20/20 18:10 DC Lactated Ringer's 1,000 ml @ 100 mls/hr Q10H IV 09/20/20 17:45 09/20/20 18:45 DC Levothyroxine Sodium (Synthroid) 50 mcg DAILY@0600 PO 09/07/20 06:00 10/09/20 05:41 Lidocaine (Lidoderm Patch) 1 patch DAILY TD 10/05/20 09:00 10/09/20 08:37 Magnesium Hydroxide (Milk Of Magnesia) 30 ml BID PO 10/06/20 21:00 10/09/20 08:37 Magnesium Hydroxide (Milk Of Magnesia) 30 ml DAILYPRN PRN PO CONSTIPATION 10/05/20 11:35 10/06/20 13:41 DC 10/06/20 08:24 Meloxicam (Mobic) 7.5 mg DAILY PO 09/07/20 09:00 09/09/20 15:16 DC 09/09/20 10:15 Methocarbamol (Robaxin) 500 mg Q6HP PRN PO spasms 09/23/20 08:00 09/24/20 07:29 DC Methocarbamol (Robaxin) 500 mg QID PRN PO MUSCLE SPASMS 09/07/20 13:55 09/22/20 15:18 DC 09/17/20 18:33 Metoclopramide HCl (Reglan) 5 mg BID PO 09/07/20 09:00 10/09/20 08:35 Midazolam HCl (Versed) 1 mg ASDIRECTED PRN IV Q5 MIN ..MAY REPEAT X1 09/15/20 19:30 09/15/20 20:15 DC 09/15/20 19:33 Miscellaneous (Unresolved Clarification Entry) SEE LABEL COMMENTS DAILY XX 10/07/20 09:00 10/07/20 16:31 DC 10/07/20 09:00 Non-Formulary Medication ( See Comment Field Below ) REMOVE LIDODERM PATCH DAILY@ XX 10/05/20 21:00 10/06/20 21:00 Nystatin (Mycostatin Powder, Nystop) Apply to groin, abdomi... BID TOP 09/23/20 09:00 10/09/20 08:37 Ondansetron HCl (ZOFRAN INJection) 4 mg Q4HP PRN IV NAUSEA OR VOMITING 09/15/20 19:00 09/15/20 20:30 DC Ondansetron HCl (ZOFRAN INJection) 4 mg Q4HP PRN IV NAUSEA OR VOMITING 09/20/20 17:10 09/20/20 18:10 DC Ondansetron HCl (ZOFRAN INJection) 4 mg Q4HP PRN IV NAUSEA OR VOMITING 09/20/20 17:45 09/20/20 18:45 DC Ondansetron HCl (ZOFRAN INJection) 4 mg Q6HP PRN IV NAUSEA OR VOMITING 09/07/20 14:10 09/28/20 11:57 DC 09/25/20 17:09 Ondansetron HCl (Zofran Odt) 4 mg DAILY PO 09/08/20 09:00 09/07/20 14:10 DC Ondansetron HCl (Zofran Odt) 4 mg Q6HP PRN PO NAUSEA OR VOMITING 09/28/20 11:55 10/05/20 11:15 Oxybutynin Chloride (Ditropan Xl) 5 mg DAILY PO 10/03/20 15:10 10/04/20 11:02 DC 10/04/20 08:32 Oxybutynin Chloride (Ditropan Xl) 10 mg DAILY PO 09/09/20 17:55 09/14/20 08:48 DC 09/14/20 08:45 Oxycodone HCl (Roxicodone, Oxyir) 5 mg ASDIRECTED PRN PO PAIN LEVEL 1-4 09/15/20 19:00 09/15/20 20:30 DC Oxycodone HCl (Roxicodone, Oxyir) 5 mg ASDIRECTED PRN PO PAIN LEVEL 1-4 09/20/20 17:10 09/20/20 18:10 DC 09/20/20 17:18 Oxycodone HCl (Roxicodone, Oxyir) 5 mg ASDIRECTED PRN PO PAIN LEVEL 1-4 09/20/20 17:45 09/20/20 18:45 DC Piperacillin Sod/ Tazobactam Sod 3.375 gm/Dextrose 50 ml @ 50 mls/hr Q6H IV 09/10/20 14:00 09/12/20 11:09 DC 09/12/20 08:25 Piperacillin Sod/ Tazobactam Sod 3.375 gm/Dextrose 50 ml @ 50 mls/hr Q6H IV 09/07/20 16:00 09/10/20 13:24 DC 09/09/20 16:21 Piperacillin Sod/ Tazobactam Sod 3.375 gm/Dextrose 50 ml @ 50 mls/hr Q6H IV 10/01/20 22:00 10/09/20 09:41 Polyethylene Glycol (Miralax) 1 pkt BID PO 10/06/20 21:00 10/09/20 08:37 Polyethylene Glycol (Miralax) 1 pkt DAILY PO 10/02/20 21:50 10/06/20 13:41 DC 10/06/20 08:07 Polyethylene Glycol (Miralax) 1 pkt DAILY PRN PO CONSTIPATION 09/07/20 13:55 10/02/20 21:50 DC 10/02/20 09:24 Potassium Chloride (Micro-K Extencaps) 30 meq Q4H PO 09/09/20 09:00 09/09/20 13:01 DC 09/09/20 13:45 Senna (Senokot) 1 tab QHS PO 09/07/20 21:00 10/02/20 21:50 DC 10/02/20 20:41 Senna/Docusate Sodium (Senokot S) 2 tab QHS PO 10/03/20 21:00 10/08/20 21:50 Sodium Hypochlorite (Dakin'S Solution) remove wound vac, pl... DAILYPRN PRN TOP WOUND CARE 10/01/20 17:30 10/02/20 19:56 DC 10/01/20 20:16 Sodium Chloride 1,000 ml @ 85 mls/hr [id number] IV 09/10/20 14:40 09/11/20 09:38 DC 09/11/20 03:50 Sodium Chloride 1,000 ml @ 100 mls/hr Q10H IV 09/07/20 13:55 09/08/20 11:08 DC 09/08/20 05:36 Sodium Chloride ([place] Nasal Center Line) 2 spray Q2HP PRN NA NASAL DRYNESS 09/18/20 11:20 Sodium Chloride (Saline Lock Flush) 10 ml ASDIRECTED PRN IV SEE LABEL COMMENTS 09/10/20 13:20 09/21/20 15:43 DC 09/19/20 20:43 Sodium Chloride (Saline Lock Flush) 10 ml ASDIRECTED PRN IV SEE LABEL COMMENTS 09/21/20 16:00 09/28/20 11:57 DC 09/27/20 09:37 Sodium Chloride (Saline Lock Flush) 10 ml ASDIRECTED PRN IV SEE LABEL COMMENTS 10/02/20 19:00 10/09/20 08:40 Sodium Chloride (Saline Lock Flush) 10 ml PICC IV 09/10/20 18:00 09/21/20 15:43 DC 09/21/20 05:52 Sodium Chloride (Saline Lock Flush) 10 ml PICC IV 09/21/20 18:00 09/28/20 11:57 DC 09/28/20 05:41 Sodium Chloride (Saline Lock Flush) 10 ml PICC IV 10/03/20 06:00 10/09/20 05:43 Solifenacin (Vesicare) 5 mg DAILY PO 10/05/20 09:00 10/05/20 11:40 DC 10/05/20 08:50 Solifenacin (Vesicare) 10 mg DAILY PO 09/15/20 09:00 09/20/20 18:00 DC 09/20/20 09:18 Solifenacin (Vesicare) 10 mg DAILY PO 10/06/20 09:00 10/09/20 08:46 Tizanidine HCl (Zanaflex) 4 mg BIDP PRN PO spasms 09/24/20 07:30 10/03/20 15:49 DC 10/03/20 08:33 Tizanidine HCl (Zanaflex) 4 mg Q8HP PRN PO SPASMS 09/22/20 09:00 09/22/20 15:18 DC 09/22/20 10:41 Tizanidine HCl (Zanaflex) 4 mg QHS PO 09/23/20 21:00 09/24/20 07:29 DC 09/23/20 21:05 Tizanidine HCl (Zanaflex) 4 mg QHS PRN PO MUSCLE SPASMS 09/07/20 13:55 09/22/20 08:15 DC 09/21/20 20:34 Vancomycin HCl 750 mg/IV Miscellaneous Supplies 1 each/ Sodium Chloride 275 ml @ 275 mls/hr Q12H IV 09/11/20 04:00 09/11/20 15:39 DC 09/11/20 03:48 Vancomycin HCl 1000 mg/IV Miscellaneous Supplies 1 each/ Sodium Chloride 270 ml @ 270 mls/hr Q12H IV 09/08/20 10:25 09/08/20 11:05 DC Vancomycin HCl 1000 mg/IV Miscellaneous Supplies 1 each/ Sodium Chloride 270 ml @ 270 mls/hr Q12H IV 09/09/20 00:00 09/09/20 13:43 DC 09/08/20 23:33 Vancomycin HCl 1000 mg/IV Miscellaneous Supplies 1 each/ Sodium Chloride 270 ml @ 270 mls/hr Q12H IV 09/09/20 14:00 09/10/20 15:43 DC 09/09/20 13:45 Vancomycin HCl 1000 mg/IV Miscellaneous Supplies 1 each/ Sodium Chloride 270 ml @ 270 mls/hr Q12H IV 09/11/20 16:00 09/12/20 10:32 DC 09/12/20 03:57 Allergies Coded Allergies: oxybutynin (Verified Allergy, Intermediate, rash, 10/06/20) Objective Physical Examination Examination GENERAL APPEARANCE:Patient seen, laying in bed, awake, alert, and oriented. Comfortable, in no acute distress. SKIN: Warm and moist. Sacral wound clean granulating tissue. DTI at the middle of the wound, non expanding, no odor. Clear drainage. Left ischial wound: 90% clean granulating tissue. Edge of the wound with black necrosis, hip capsule erroded posteriorly, hamstring tendon visible. No odor. Right ischial wound with clean granulating tissue. LUNGS: Clear to auscultation bilaterally. No wheezing appreciated. Trach in place HEART: No chest wall abnormalities. Regular rate and rhythm with no murmurs a ppreciated. ABDOMEN: Abdomen is soft, non-tender, non-distended. Colostomy in place. Wood cath in place. EXTREMITIES: No edema identified. No calf tenderness. Vital Signs Vital Signs Date Time Temp Pulse Resp B/P (MAP) Pulse Ox O2 Delivery O2 Flow Rate FiO2 10/09/20 05:00 96 Trach Collar 8.0 35 10/08/20 22:00 98.1 110 20 131/80 (97) I&Os I&O- Last 24 Hours up to 6 AM 10/09/20 06:00 Intake Total 1532 ml Output Total 500 ml Balance 1032 ml Laboratory Data Labs 24H Laboratory Tests 2 10/08/20 17:36: Bedside Glucose (Misc Panel) 96 10/08/20 21:01: Bedside Glucose (Misc Panel) 116H 10/09/20 05:45: Nucleated Red Blood Cells % (auto) 0.0, Anion Gap 2L, Glomerular Filtration Rate > 60.0, Calcium Level 7.8L 10/09/20 11:27: Bedside Glucose (Misc Panel) 220H 10/09/20 11:40: Bedside Glucose (Misc Panel) 133H 10/09/20 12:39: Bedside Glucose (Misc Panel) 141H CBC/BMP Laboratory Tests 10/09/20 05:45 Microbiology Microbiology 10/01/20 Gram Stain - Final, Complete 10/01/20 Wound Culture - Final, Complete Pasteurella Multocida Enterococcus Faecalis Enterococcus Avium 10/01/20 Blood Culture - Final, Complete NO GROWTH AFTER 5 DAYS 10/01/20 Blood Culture - Final, Complete NO GROWTH AFTER 5 DAYS 09/30/20 Urine Culture - Final, Complete Impression Sacral wound stage 4 Left ischial wound stage 4 Right ischial wound stage 3. All measurements in nursing wound care sheets. No significant change. All wounds improved. Odor resolved. Patient gives verbal consent for Left ischial wound debridement. 1 % Lidocaine infiltrated in the area. Necrotic tissue resected using 15 blade. Necrotic skin, subcutaneous tissue and muscle excised. Patient tolerated well. D/c Betadine dressing changes. Sacrum and Right ischium: Hydrofera blue, pack with Kerlix daily and prn Left ischium: Santyl, Kerlix daily and prn. Extra care for the leaking Wood. Off load. Improve nutrition. Plan / VTE VTE Prophylaxis Ordered?: Yes MCKENZIE MULLEN DO October 09, 2020 14:13
--- NOTE | 2020-10-09 20:02 | IPNPDOC ---
Date Seen The patient was seen on 10/09/20. Progress Note SUBJECTIVE: patient was seen and examined at bedside. Appears to be in discomfort, asking for additional pain medications. No acute events overnight. Denies fevers, chills, n/v/d, chest pain. Continues to have leakage of urine around garcia. Presently on vesicare. States that rash is improving. OBJECTIVE PHYSICAL EXAMINATION: VITAL SIGNS: Please see below. GENERAL: awake, alert HEENT: PERRLA, EOMI CARDIOVASCULAR: RRR, normal S1, S2 RESPIRATORY: lungs CTAB, fair entry at lung bases bilaterally ABDOMINAL: soft, non tender, non distented. Stoma bag contains soft brown stool EXTREMITIES: trace edema bilaterally. Legs are in heel float boots. NEUROLOGICAL: functional paraplegia, moves her R arm for feeding. LABORATORY DATA, IMAGING STUDIES, MICROBIOLOGY: Please see below. DVT prophylaxis ordered?: lovenox 1 mg/kg q12h ASSESSMENT AND PLAN: PROBLEMS: 1. Leaking Gracia catheter 2/2 bladder spasms. Complicated by UTI -Patient initially completed a 10 day course of antibiotic (cefepime) -Leukocytosis labile -ID following, recommendations appreciated -Patient is now on Zosyn day 8, d/w Dr. Lucio, to continue 2. Sacral decubitus ulcer and bilateral ischial ulcer -Diverting colostomy completed 1 year ago to prevent infection of sacral decubitus ulcers -S/p debridement of sacral and bilateral ischial ulcers by Dr. Lopez on 09/13/2020 -Plastic surgery and advanced wound care following recommendations appreciated -D/w Dr. Lopez, not a surgical candidate for flap. 3. Pain control -Patient has been receiving Suboxone illegally. -suboxone taper completed. -Physiatry consulted, recommendation appreciated 4. Acute on chronic iron deficient anemia -s/p 4 units transfused -Continue with iron supplementation -Continue with monitoring CBC 5. Chronic lower extremity edema -Due to hypotension, will hold furosemide 6. Chronic respiratory failure with hypoxia and hypercarbia with tracheostomy -At baseline -Continue with inhalers 7. Neurogenic bladder with chronic garcia -Garcia changed on 09/20 -Urology consulted, recommendations appreciated -Physiatry consulted, recommendations appreciated -Patient w asstarted on oxybutynin. May have had a drug rash reaction, now on Vesicare 8. Chronic constipation -Patient on senna, docusate, MiraLax, milk of mag 9. Chronic diastolic CHF -Will recheck echocardiogram 10. Neuropathy with muscle spasms and chronic back pain with lumbosacral radiculopathy -Physiatry consulted, recommendations appreciated -Continue with gabapentin. Patient started on baclofen -Will need to be weaned off Suboxone 11. Hypertension -Now hypotensive -Hold antihypertensives 12. NIDDM type 2 -Continue with insulin sliding scale 13. Hypothyroidism -Continue with levothyroxine 14. Migraine headache -Continue with acetaminophen as needed 15. Dyslipidemia -Continue with atorvastatin and aspirin 16. GERD -Continue with famotidine 17. Obestiy -BMI 45.9 -Complicates care 18. Drug rash -Possibly 2/2 oxybutynin vs fluconazole -Replaced oxybutynin with Vesicare -If it does not improve, may need to switch out fluconazole -Otherwise, on IV benadryl and topical hydrocortisone 19. DVT ppx -Lovenox Disposition: Patient does not wish for transfer. Plastic surgery recommendation not a surgical candidate. VS, I&O, 24H, Fishbone Vital Signs/I&O Vital Signs Date Time Temp Pulse Resp B/P (MAP) Pulse Ox O2 Delivery O2 Flow Rate FiO2 10/09/20 14:00 97.7 97 17 126/83 (97) 98 Trach Collar 5.0 28 I&O- Last 24 Hours up to 6 AM 10/09/20 06:00 Intake Total 1532 ml Output Total 500 ml Balance 1032 ml Laboratory Data 24H LABS Laboratory Tests 2 10/08/20 21:01: Bedside Glucose (Misc Panel) 116H 10/09/20 05:45: Nucleated Red Blood Cells % (auto) 0.0, Anion Gap 2L, Glomerular Filtration Rate > 60.0, Calcium Level 7.8L 10/09/20 11:27: Bedside Glucose (Misc Panel) 220H 10/09/20 11:40: Bedside Glucose (Misc Panel) 133H 10/09/20 12:39: Bedside Glucose (Misc Panel) 141H 10/09/20 16:24: Bedside Glucose (Misc Panel) 76L CBC/BMP Laboratory Tests 10/09/20 05:45 Microbiology Microbiology 10/01/20 Gram Stain - Final, Complete 10/01/20 Wound Culture - Final, Complete Pasteurella Multocida Enterococcus Faecalis Enterococcus Avium 10/01/20 Blood Culture - Final, Complete NO GROWTH AFTER 5 DAYS 10/01/20 Blood Culture - Final, Complete NO GROWTH AFTER 5 DAYS 09/30/20 Urine Culture - Final, Complete FISH MOSHER MD October 09, 2020 20:02
[2020-10-09] MEDS: SENOKOT S TAB PO SCH (21:25)
[2020-10-09] MEDS: ATORVASTATIN 20 MG TAB PO SCH (21:26)
[2020-10-09] MEDS: FERROUS GLUCONATE 324 MG TAB PO SCH (21:27)
[2020-10-09] MEDS: DULoxetine 30MG CAPSULE (CYMBALTA) PO SCH (21:27)
[2020-10-09] MEDS: **NOTE PATIENT COMMENT** MISC XX SCH (21:28)
[2020-10-09 21:30] VITALS: BP 128/82
[2020-10-10] MEDS: hydrOXYzine 25 MG TAB PO PRN ×3 (02:18→15:25)
[2020-10-10] MEDS: PIPERACILLIN/TAZOBACTAM SOD 3.375 GM in D5W MINI-BAG PLUS 50 ML IV SCH ×4 (04:34→23:22)
[2020-10-10] MEDS: KETOROLAC 30 MG/ML 1ML VIAL IV PRN ×4 (04:34→23:45)
[2020-10-10] MEDS: LEVOTHYROXINE 50MCG TABLET (0.05MG) PO SCH (05:39)
[2020-10-10] MEDS: SODIUM CHLORIDE 0.9% INJ 10 ML SYR IV SCH ×2 (05:39→16:54)
[2020-10-10 06:00] VITALS: BP 128/82
[2020-10-10 06:14] LABS: HEMATOCRIT 30.6 % (36.0-47.0); HEMOGLOBIN 9.3 g/dl (12.0-15.5); MEAN CORPUSCULAR HEMOGLOBIN 26.7 pg (27.0-33.0); MEAN CORPUSCULAR HGB CONC 30.4 g/dl (32.0-36.5); MEAN CORPUSCULAR VOLUME 87.9 fl (80.0-96.0); PLATELET COUNT, AUTOMATED 486 10^3/uL (150-450); RED BLOOD COUNT 3.48 10^6/uL (4.00-5.40); WHITE BLOOD COUNT 12.7 10^3/uL (4.0-10.0)
[2020-10-10 06:31] LABS: BLOOD UREA NITROGEN 12 MG/DL (7-18); CALCIUM LEVEL 7.1 MG/DL (8.8-10.2); CARBON DIOXIDE LEVEL 37 MEQ/L (21-32); CHLORIDE LEVEL 101 MEQ/L (98-107); CREATININE FOR GFR 0.31 MG/DL (0.55-1.30); GLOMERULAR FILTRATION RATE > 60.0 (>45); GLUCOSE, FASTING 91 MG/DL (70-100); POTASSIUM SERUM 3.9 MEQ/L (3.5-5.1); SODIUM LEVEL 139 MEQ/L (136-145)
[2020-10-10] MEDS: HumaLOG INSULIN (NovoLOG) PER UNIT SC SCH ×4 (07:30→21:00)
[2020-10-10 08:35] VITALS: O2SAT 99
[2020-10-10] MEDS: SODIUM CHLORIDE 0.9% INJ 10 ML SYR IV PRN ×3 (08:50→23:46)
[2020-10-10] MEDS: LIDOCAINE 5% (LIDODERM) PATCH TD SCH (08:57)
[2020-10-10] MEDS: ENOXAPARIN 120MG/0.8ML SYRINGE (J1650 PER 10MG) SC SCH ×2 (08:58→23:20)
[2020-10-10] MEDS: FLUCONAZOLE 50MG TABLET PO SCH (08:58)
[2020-10-10] MEDS: SOLIFENACIN 5 MG TAB PO SCH (08:58)
[2020-10-10] MEDS: GABAPENTIN 300 MG CAP PO SCH ×3 (08:58→23:13)
[2020-10-10] MEDS: BACLOFEN 5MG PER 1/2 TABLET PO SCH ×2 (08:58→23:13)
[2020-10-10] MEDS: CYANOCOBALAMIN 250 MCG TABLET PO SCH (08:58)
[2020-10-10] MEDS: FUROSEMIDE 20 MG TAB PO SCH (08:59)
[2020-10-10] MEDS: FOLIC ACID 1 MG TAB PO SCH (08:59)
[2020-10-10] MEDS: METOCLOPRAMIDE 5 MG TAB PO SCH ×2 (09:00→23:14)
[2020-10-10] MEDS: ASPIRIN 81MG ENTERIC TABLET PO SCH (09:00)
[2020-10-10] MEDS: ACETAMINOPHEN 500 MG TAB PO SCH ×3 (09:00→23:15)
[2020-10-10] MEDS: MOM 30ML SUSPENSION UDC PO SCH ×2 (09:00→21:00)
[2020-10-10] MEDS: NYSTATIN 100,000 UNITS/GM TOPICAL PWD 15 GM TOP SCH ×2 (09:00→23:21)
[2020-10-10] MEDS: MIRALAX *UNIT DOSE* 17GM PACKET PO SCH ×2 (09:00→21:00)
[2020-10-10] MEDS: SANTYL OINT 30GM TOP SCH (12:59)
[2020-10-10] MEDS: DIAPER RELIEF PASTE (DESITIN) 60GM TOP SCH ×2 (12:59→23:21)
[2020-10-10 14:00] VITALS: BP 126/80
[2020-10-10 21:00] VITALS: O2SAT 96
[2020-10-10] MEDS: **NOTE PATIENT COMMENT** MISC XX SCH (21:00)
[2020-10-10] MEDS ORDERED: CALCIUM GLUCONATE 1,000 MG in D5W MINI-BAG PLUS 100 ML IV ONE (21:50)
[2020-10-10 22:00] VITALS: BP 129/83
--- NOTE | 2020-10-10 22:01 | IPNPDOC ---
Date Seen The patient was seen on 10/10/20. Progress Note SUBJECTIVE: seen and examined at bedside. Doing well, no acute events overnight. Continues to have urine leakage from around garcia. Patient does not wish for bilateral nephrostomy tubes to divert urine at this time. Patient does not want transfer to an outside facility. Per Dr. Lopez, not a surgical candidate. C/o pain at sacral wounds. OBJECTIVE PHYSICAL EXAMINATION: VITAL SIGNS: Please see below. GENERAL: comfortable in bed HEENT: PERRLA, EOMI CARDIOVASCULAR: RRR, normal S2, S2 RESPIRATORY: CTAB, fair air entry at bilateral lung bases. ABDOMINAL: soft, non tender SKIN: sacral decubitus wound exposed bone EXTREMITIES: trace edema. Legs in heel float boots. NEUROLOGICAL: functional paraplegia. LABORATORY DATA, IMAGING STUDIES, MICROBIOLOGY: Please see below. DVT prophylaxis ordered?: lovenox 1 mg/kg q12h ASSESSMENT AND PLAN: PROBLEMS: 1. Leaking Garcia catheter 2/2 bladder spasms. Complicated by UTI -Patient initially completed a 10 day course of antibiotic (cefepime) -Leukocytosis improving - d/w Dr. Gabriel regarding possibility for suprapubic cath; recommends against it, in female patients, low likelihood if improving leakage due to anatomically short urethra - recommended myrbertriq, unfortunately, not available in inpatient pharmacy - previously on oxybutinin, now on vesicare. -ID following, recommendations appreciated -Patient is now on Zosyn day 9, d/w Dr. Lucio, to continue 2. Sacral decubitus ulcer and bilateral ischial ulcer with likely chronic osteo myelitis as evidence by exposed bone -Diverting colostomy completed 1 year ago to prevent infection of sacral decubitus ulcers -S/p debridement of sacral and bilateral ischial ulcers by Dr. Lopez on -Plastic surgery and advanced wound care following recommendations appreciated - D/w Dr. Lopez, improving, will avoid wound vac for now. Leukocytosis improving 3. Pain control -Patient has been receiving Suboxone illegally. -suboxone tapered -Physiatry consulted, recommendation appreciated - now on baclofen - will use prn morphine and oxycodone for dressing changes. 4. Acute on chronic iron deficient anemia -s/p 4 units transfused -Continue with iron supplementation -Continue with monitoring CBC 5. Chronic lower extremity edema -Due to hypotension, will hold furosemide 6. Chronic respiratory failure with hypoxia and hypercarbia with tracheostomy -At baseline -Continue with inhalers 7. Neurogenic bladder with chronic garcia -Garcia changed on 09/20 -Urology consulted, recommendations appreciated -Physiatry consulted, recommendations appreciated -Patient started on oxybutynin. May have had a reaction, now on Vesicare 8. Chronic constipation -Patient on senna, docusate, MiraLax, milk of mag 9. Chronic diastolic CHF -Will recheck echocardiogram 10. Neuropathy with muscle spasms and chronic back pain with lumbosacral radiculopathy -Physiatry consulted, recommendations appreciated -Continue with gabapentin. Patient started on baclofen 11. Hypertension -Now hypotensive -Hold antihypertensives 12. NIDDM type 2 -Continue with insulin sliding scale 13. Hypothyroidism -Continue with levothyroxine 14. Migraine headache -Continue with acetaminophen as needed 15. Dyslipidemia -Continue with atorvastatin and aspirin 16. GERD -Continue with famotidine 17. Obestiy -BMI 45.9 -Complicates care 18. Drug rash -Possibly 2/2 oxybutynin vs fluconazole -Switching out oxybutynin for Vesicare -If it does not improve, may need to switch out fluconazole -Otherwise, on IV benadryl and topical hydrocortisone 19. DVT ppx -Lovenox Disposition: On [facility] waiting list. Otherwise, patient's nutritional status needs to be improved. Continue with IV antibiotics. VS, I&O, 24H, [place] Vital Signs/I&O Vital Signs Date Time Temp Pulse Resp B/P (MAP) Pulse Ox O2 Delivery O2 Flow Rate FiO2 10/10/20 14:00 97.4 95 20 126/80 (95) 100 Trach Collar 5.0 28 I&O- Last 24 Hours up to 6 AM 10/10/20 06:00 Intake Total 1060 ml Output Total 275 ml Balance 785 ml Laboratory Data 24H LABS Laboratory Tests 2 10/10/20 05:50: Nucleated Red Blood Cells % (auto) 0.0, Anion Gap 1L, Glomerular Filtration Rate > 60.0, Calcium Level 7.1L 10/10/20 08:47: Whole Blood Ionized Calcium 4.1L 10/10/20 11:47: Bedside Glucose (Misc Panel) 129H 10/10/20 16:58: Bedside Glucose (Misc Panel) 99 10/10/20 20:00: Bedside Glucose (Misc Panel) 285H CBC/BMP Laboratory Tests 10/10/20 05:50 Microbiology Microbiology 10/01/20 Gram Stain - Final, Complete 10/01/20 Wound Culture - Final, Complete Pasteurella Multocida Enterococcus Faecalis Enterococcus Avium 10/01/20 Blood Culture - Final, Complete NO GROWTH AFTER 5 DAYS 10/01/20 Blood Culture - Final, Complete NO GROWTH AFTER 5 DAYS 09/30/20 Urine Culture - Final, Complete FISH MOSHER MD October 10, 2020 22:01
[2020-10-10] MEDS: FERROUS GLUCONATE 324 MG TAB PO SCH (23:13)
[2020-10-10] MEDS: ATORVASTATIN 20 MG TAB PO SCH (23:13)
[2020-10-10] MEDS: SENOKOT S TAB PO SCH (23:14)
[2020-10-10] MEDS: DULoxetine 30MG CAPSULE (CYMBALTA) PO SCH (23:14)
[2020-10-11] MEDS: SODIUM CHLORIDE 0.9% INJ 10 ML SYR IV PRN ×3 (01:50→23:25)
[2020-10-11] MEDS: PIPERACILLIN/TAZOBACTAM SOD 3.375 GM in D5W MINI-BAG PLUS 50 ML IV SCH ×4 (04:12→21:53)
[2020-10-11] MEDS: LEVOTHYROXINE 50MCG TABLET (0.05MG) PO SCH (05:41)
[2020-10-11] MEDS: SODIUM CHLORIDE 0.9% INJ 10 ML SYR IV SCH ×2 (05:42→17:35)
[2020-10-11 06:00] VITALS: BP 129/82
[2020-10-11 06:23] LABS: HEMATOCRIT 29.5 % (36.0-47.0); MEAN CORPUSCULAR HEMOGLOBIN 26.5 pg (27.0-33.0); MEAN CORPUSCULAR HGB CONC 30.5 g/dl (32.0-36.5); PLATELET COUNT, AUTOMATED 498 10^3/uL (150-450); RED BLOOD COUNT 3.39 10^6/uL (4.00-5.40); WHITE BLOOD COUNT 17.7 10^3/uL (4.0-10.0)
[2020-10-11 06:32] LABS: BLOOD UREA NITROGEN 15 MG/DL (7-18); CALCIUM LEVEL 7.2 MG/DL (8.8-10.2); CARBON DIOXIDE LEVEL 34 MEQ/L (21-32); CHLORIDE LEVEL 102 MEQ/L (98-107); GLOMERULAR FILTRATION RATE > 60.0 (>45); GLUCOSE, FASTING 76 MG/DL (70-100); POTASSIUM SERUM 4.2 MEQ/L (3.5-5.1); SODIUM LEVEL 139 MEQ/L (136-145)
[2020-10-11] MEDS: KETOROLAC 30 MG/ML 1ML VIAL IV PRN (06:35)
[2020-10-11] MEDS: HumaLOG INSULIN (NovoLOG) PER UNIT SC SCH ×4 (07:30→21:00)
[2020-10-11] MEDS: BACLOFEN 5MG PER 1/2 TABLET PO SCH ×2 (09:25→21:56)
[2020-10-11] MEDS: ENOXAPARIN 120MG/0.8ML SYRINGE (J1650 PER 10MG) SC SCH ×2 (09:25→21:56)
[2020-10-11] MEDS: ASPIRIN 81MG ENTERIC TABLET PO SCH (09:25)
[2020-10-11] MEDS: GABAPENTIN 300 MG CAP PO SCH ×3 (09:26→21:58)
[2020-10-11] MEDS: METOCLOPRAMIDE 5 MG TAB PO SCH ×2 (09:26→21:57)
[2020-10-11] MEDS: CYANOCOBALAMIN 250 MCG TABLET PO SCH (09:26)
[2020-10-11] MEDS: SOLIFENACIN 5 MG TAB PO SCH (09:26)
[2020-10-11] MEDS: FOLIC ACID 1 MG TAB PO SCH (09:26)
[2020-10-11] MEDS: SANTYL OINT 30GM TOP SCH (09:27)
[2020-10-11] MEDS: ACETAMINOPHEN 500 MG TAB PO SCH ×3 (09:27→21:57)
[2020-10-11] MEDS: NYSTATIN 100,000 UNITS/GM TOPICAL PWD 15 GM TOP SCH ×2 (09:27→21:00)
--- NOTE | 2020-10-11 09:27 | IPNPDOC ---
Date Seen The patient was seen on 10/11/20. Progress Note SUBJECTIVE: seen and examined at bedside. C/o nausea and retching, worried will vomit. Stoma output unremarkable. Has mild abdominal pain in the RLQ. Patient does not wish for bilateral nephrostomy tubes to divert urine. Patient does not want transfer to an outside facility. Per Dr. Lopez, not a surgical candidate. OBJECTIVE PHYSICAL EXAMINATION: VITAL SIGNS: Please see below. GENERAL: comfortable in bed HEENT: PERRLA CARDIOVASCULAR: RRR, normal S2, S2 RESPIRATORY: CTAB ABDOMINAL: soft, obese, tender to palpation in RLQ. Stoma bag content brown stool. No blood. EXTREMITIES: trace edema NEUROLOGICAL: functional quadriplegia PSYCHOLOGICAL: calm, cooperative, pleasant LABORATORY DATA, IMAGING STUDIES, MICROBIOLOGY: Please see below. DVT prophylaxis ordered?: lovenox 1 mg/kg q12h ASSESSMENT AND PLAN: PROBLEMS: # Leaking Garcia catheter 2/2 bladder spasms. Complicated by UTI -Patient initially completed a 10 day course of antibiotic (cefepime) - d/w Dr. Gabriel regarding possibility for suprapubic cath; recommends against it, in female patients, low likelihood if improving leakage due to anatomically short urethra - recommended myrbertriq, unfortunately, not available in inpatient pharmacy - previously on oxybutinin, now on vesicare. -ID following, recommendations appreciated -Patient is now on Zosyn day 10, d/w Dr. Lucio, to continue #. Sacral decubitus ulcer and bilateral ischial ulcer with likely chronic osteomyelitis due to exposed bone - Diverting colostomy completed 1 year ago to prevent infection of sacral decubitus ulcers - S/p debridement of sacral and bilateral ischial ulcers by Dr. Lopez on 09/13/2020 - Plastic surgery and advanced wound care following recommendations appreciated - D/w Dr. Lopez, improving, will avoid wound vac for now. - Leukocytosis worsened today. Remains afebrile - will monitor WBC. Presently on zosyn #. Pain control -Patient has been receiving Suboxone illegally. - has been on toradol, 6 doses -stop famotidine prn, replace with pantoprazole -Physiatry consulted, recommendation appreciated #nausea and vomiting - check KUB, non specific gas pattern, cannot r/o ileus - zofran prn - having stool output into stoma - passing gas - abdo pain improving. Monitor. # Acute on chronic iron deficient anemia -s/p 4 units transfused -Continue with iron supplementation -Continue with monitoring CBC #. Chronic lower extremity edema - holding furosemide due to patient's bladder spasms and urine leakage complicating wound care #. Chronic respiratory failure with hypoxia and hypercarbia with tracheostomy -At baseline -Continue with inhalers #. Neurogenic bladder with chronic garcia -Garcia changed on 09/20 -Urology consulted, recommendations appreciated -Physiatry consulted, recommendations appreciated -Patient started on oxybutynin. May have had a drug reaction, now on Vesicare # Chronic constipation -Patient on senna, docusate, MiraLax, milk of mag # Chronic diastolic CHF -Will recheck echocardiogram #. Neuropathy with muscle spasms and chronic back pain with lumbosacral radiculopathy -Physiatry consulted, recommendations appreciated -Continue with gabapentin. Patient started on baclofen -weaned off Suboxone #. Hypertension -Now hypotensive -Hold antihypertensives # NIDDM type 2 -Continue with insulin sliding scale #. Hypothyroidism -Continue with levothyroxine # Migraine headache -Continue with acetaminophen as needed #. Dyslipidemia -Continue with atorvastatin and aspirin #. GERD -Continue with famotidine #. Obestiy -BMI 45.9 -Complicates care #. Drug rash -Possibly 2/2 oxybutynin vs fluconazole -Switching out oxybutynin for Vesicare -If it does not improve, may need to switch out fluconazole -Otherwise, on IV benadryl and topical hydrocortisone #. DVT ppx -Lovenox Disposition: does not wish for transfer. Pending clinical improvement. VS, I&O, 24H, [place] Vital Signs/I&O Vital Signs Date Time Temp Pulse Resp B/P (MAP) Pulse Ox O2 Delivery O2 Flow Rate FiO2 10/11/20 06:00 98.0 102 17 129/82 (98) 99 Trach Collar 5.0 28 I&O- Last 24 Hours up to 6 AM 10/11/20 05:59 Intake Total 1635 ml Output Total 600 ml Balance 1035 ml Laboratory Data 24H LABS Laboratory Tests 2 10/10/20 11:47: Bedside Glucose (Misc Panel) 129H 10/10/20 16:58: Bedside Glucose (Misc Panel) 99 10/10/20 20:00: Bedside Glucose (Misc Panel) 285H 10/11/20 05:43: Nucleated Red Blood Cells % (auto) 0.0, Anion Gap 3L, Glomerular Filtration Rate > 60.0, Calcium Level 7.2L CBC/BMP Laboratory Tests 10/11/20 05:43 Microbiology Microbiology 10/01/20 Gram Stain - Final, Complete 10/01/20 Wound Culture - Final, Complete Pasteurella Multocida Enterococcus Faecalis Enterococcus Avium 10/01/20 Blood Culture - Final, Complete NO GROWTH AFTER 5 DAYS 10/01/20 Blood Culture - Final, Complete NO GROWTH AFTER 5 DAYS FISH MOSHER MD October 11, 2020 09:27
[2020-10-11] MEDS: FLUCONAZOLE 50MG TABLET PO SCH (09:28)
[2020-10-11] MEDS: LIDOCAINE 5% (LIDODERM) PATCH TD SCH (09:28)
[2020-10-11] MEDS: MOM 30ML SUSPENSION UDC PO SCH ×3 (09:28→21:00)
[2020-10-11] MEDS: MIRALAX *UNIT DOSE* 17GM PACKET PO SCH ×3 (09:28→21:00)
[2020-10-11] MEDS: DIAPER RELIEF PASTE (DESITIN) 60GM TOP SCH ×2 (09:29→21:00)
[2020-10-11] MEDS: FUROSEMIDE 20 MG TAB PO SCH (09:31)
[2020-10-11] MEDS: PANTOPRAZOLE 40MG TAB (PROTONIX) PO SCH (10:30)
[2020-10-11] MEDS ORDERED: MORPHINE 2 MG/ML 1ML VIAL (J2270) IV ONE ×2 (10:40→23:45)
[2020-10-11] MEDS: ONDANSETRON 4MG/2ML VIAL IV PRN (11:48)
[2020-10-11 14:00] VITALS: BP 127/80
--- NOTE | 2020-10-11 14:15 | REP ---
INDICATION: vomiting COMPARISON: None. TECHNIQUE: Supine view of the abdomen and pelvis. FINDINGS: Ostomy overlies the left hemipelvis. Bowel gas pattern demonstrates fecal stasis and possible constipation. Ileus cannot be excluded. No definite bowel obstruction pattern. No free air. Prior cholecystectomy. Skeletal structures demonstrate age-related degenerative changes. IMPRESSION: Nonspecific bowel changes as described above. <Electronically signed by Sarbjit Parnell > 10/11/20 3252
[2020-10-11] MEDS: **NOTE PATIENT COMMENT** MISC XX SCH (21:00)
[2020-10-11] MEDS: FERROUS GLUCONATE 324 MG TAB PO SCH (21:57)
[2020-10-11] MEDS: DULoxetine 30MG CAPSULE (CYMBALTA) PO SCH (21:57)
[2020-10-11] MEDS: SENOKOT S TAB PO SCH (21:57)
[2020-10-11] MEDS: ATORVASTATIN 20 MG TAB PO SCH (21:58)
[2020-10-11 22:00] VITALS: BP 126/79; O2SAT 97
[2020-10-12] MEDS: SODIUM CHLORIDE 0.9% INJ 10 ML SYR IV PRN ×3 (00:09→23:44)
[2020-10-12] MEDS: PIPERACILLIN/TAZOBACTAM SOD 3.375 GM in D5W MINI-BAG PLUS 50 ML IV SCH ×4 (04:30→22:09)
[2020-10-12] MEDS: LEVOTHYROXINE 50MCG TABLET (0.05MG) PO SCH (05:40)
[2020-10-12] MEDS: ONDANSETRON 4MG/2ML VIAL IV PRN ×3 (05:40→13:17)
[2020-10-12] MEDS: SODIUM CHLORIDE 0.9% INJ 10 ML SYR IV SCH ×2 (05:42→17:19)
[2020-10-12 06:00] VITALS: BP 129/81
[2020-10-12 06:03] LABS: HEMATOCRIT 29.5 % (36.0-47.0); HEMOGLOBIN 9.1 g/dl (12.0-15.5); MEAN CORPUSCULAR HEMOGLOBIN 26.7 pg (27.0-33.0); MEAN CORPUSCULAR HGB CONC 30.8 g/dl (32.0-36.5); MEAN CORPUSCULAR VOLUME 86.5 fl (80.0-96.0); PLATELET COUNT, AUTOMATED 488 10^3/uL (150-450); RED BLOOD COUNT 3.41 10^6/uL (4.00-5.40); WHITE BLOOD COUNT 14.9 10^3/uL (4.0-10.0)
[2020-10-12 06:26] LABS: BLOOD UREA NITROGEN 13 MG/DL (7-18); CALCIUM LEVEL 7.3 MG/DL (8.8-10.2); CARBON DIOXIDE LEVEL 34 MEQ/L (21-32); CHLORIDE LEVEL 101 MEQ/L (98-107); CREATININE FOR GFR 0.36 MG/DL (0.55-1.30); GLOMERULAR FILTRATION RATE > 60.0 (>45); GLUCOSE, FASTING 85 MG/DL (70-100); POTASSIUM SERUM 4.4 MEQ/L (3.5-5.1); SODIUM LEVEL 139 MEQ/L (136-145)
[2020-10-12] MEDS: HumaLOG INSULIN (NovoLOG) PER UNIT SC SCH ×5 (07:18→22:09)
[2020-10-12] MEDS: METOCLOPRAMIDE 5 MG TAB PO SCH ×2 (08:06→22:08)
[2020-10-12] MEDS: BACLOFEN 5MG PER 1/2 TABLET PO SCH ×3 (08:06→22:07)
[2020-10-12] MEDS: CYANOCOBALAMIN 250 MCG TABLET PO SCH (08:06)
[2020-10-12] MEDS: SOLIFENACIN 5 MG TAB PO SCH (08:06)
[2020-10-12] MEDS: ASPIRIN 81MG ENTERIC TABLET PO SCH (08:06)
[2020-10-12] MEDS: FUROSEMIDE 20 MG TAB PO SCH (08:07)
[2020-10-12] MEDS: PANTOPRAZOLE 40MG TAB (PROTONIX) PO SCH (08:07)
[2020-10-12] MEDS: FOLIC ACID 1 MG TAB PO SCH (08:08)
[2020-10-12] MEDS: ENOXAPARIN 120MG/0.8ML SYRINGE (J1650 PER 10MG) SC SCH ×2 (08:08→22:06)
[2020-10-12] MEDS: GABAPENTIN 300 MG CAP PO SCH ×3 (08:08→22:06)
[2020-10-12] MEDS: MIRALAX *UNIT DOSE* 17GM PACKET PO SCH (08:08)
[2020-10-12] MEDS: MOM 30ML SUSPENSION UDC PO SCH ×2 (08:08→22:06)
[2020-10-12] MEDS: ACETAMINOPHEN 500 MG TAB PO SCH ×3 (08:09→22:08)
[2020-10-12] MEDS: LIDOCAINE 5% (LIDODERM) PATCH TD SCH (08:09)
[2020-10-12] MEDS: NYSTATIN 100,000 UNITS/GM TOPICAL PWD 15 GM TOP SCH ×2 (08:09→22:09)
[2020-10-12] MEDS: DIAPER RELIEF PASTE (DESITIN) 60GM TOP SCH ×2 (08:10→22:10)
[2020-10-12] MEDS: SANTYL OINT 30GM TOP SCH (08:11)
[2020-10-12] MEDS: FLUCONAZOLE 50MG TABLET PO SCH (08:11)
[2020-10-12] MEDS ORDERED: KETOROLAC 30 MG/ML 1ML VIAL IV ONE (08:45)
[2020-10-12] MEDS: IBUPROFEN 600MG TAB PO PRN ×2 (10:43→22:07)
[2020-10-12] MEDS ORDERED: DULoxetine 30MG CAPSULE (CYMBALTA) PO SCH (11:35)
[2020-10-12 14:00] VITALS: BP 133/84
[2020-10-12] MEDS ORDERED: MORPHINE 2 MG/ML 1ML VIAL (J2270) IV ONE (15:40)
--- NOTE | 2020-10-12 21:55 | IPNPDOC ---
Date Seen The patient was seen on 10/12/20. Progress Note SUBJECTIVE: seen and examined at bedside. Abdominal pain has resolved. No acute events overnight. Denies vomiting, nausea, chest pain, fevers, shortness of breath. C/o sacral pain. OBJECTIVE PHYSICAL EXAMINATION: VITAL SIGNS: Please see below. GENERAL: comfortable in bed HEENT: PERRLA CARDIOVASCULAR: RRR, normal S2, S2 RESPIRATORY: CTAB ABDOMINAL: soft, obese, tender to palpation in RLQ. Stoma bag content brown stool. No blood. EXTREMITIES: 1+ edema. Legs in heel float boots. SKIN::Very large sacral decubitus ulcer ~20 cm in diameter. Some granulation tissue. Exposed bone seen at center. L ischial decubitus ulcer. Exposed bone once again. R ischial ulcerations x 2, smaller, more supeficial, do not appear infected. PSYCHOLOGICAL: calm, cooperative, pleasant LABORATORY DATA, IMAGING STUDIES, MICROBIOLOGY: Please see below. DVT prophylaxis ordered?: lovenox 1 mg/kg q12h ASSESSMENT AND PLAN: PROBLEMS: # Leaking Garcia catheter 2/2 bladder spasms. Complicated by UTI -Patient initially completed a 10 day course of antibiotic (cefepime) - d/w Dr. Gabriel regarding possibility for suprapubic cath; recommends against it, in female patients, low likelihood if improving leakage due to anatomically short urethra - recommended myrbertriq, unfortunately, not available in inpatient pharmacy - previously on oxybutinin, now on vesicare. -ID following, recommendations appreciated -Patient is now on Zosyn day 10, d/w Dr. Lucio, to continue #. Sacral decubitus ulcer and bilateral ischial ulcer with likely chronic osteo as exposed bone visible - Diverting colostomy completed 1 year ago to prevent infection of sacral decubitus ulcers - S/p debridement of sacral and bilateral ischial ulcers by Dr. Lopez on 09/13/2020 - Plastic surgery and advanced wound care following recommendations appreciated - D/w Dr. Lopez, improving, will avoid wound vac for now. - Leukocytosis worsened today. Remains afebrile - will monitor WBC. Presently on zosyn #. Pain control -Patient has been receiving Suboxone illegally. -tapered off suboxone - has been on toradol, 6 doses, DC - stop famotidine prn, replace with pantoprazole - Physiatry consulted, recommendation appreciated #nausea and vomiting - check KUB - zofran prn - having stool output into stoma # Acute on chronic iron deficient anemia -s/p 4 units transfused -Continue with iron supplementation -Continue with monitoring CBC #. Chronic lower extremity edema - holding furosemide due to patient's bladder spasms and urine leakage complicating wound care #. Chronic respiratory failure with hypoxia and hypercarbia with tracheostomy -At baseline -Continue with inhalers #. Neurogenic bladder with chronic garcia -Garcia changed on 09/20 -Urology consulted, recommendations appreciated -Physiatry consulted, recommendations appreciated -Patient started on oxybutynin. May have had a reaction, now on Vesicare # Chronic constipation -Patient on senna, docusate, MiraLax, milk of mag # Chronic diastolic CHF -Will recheck echocardiogram #. Neuropathy with muscle spasms and chronic back pain with lumbosacral radiculopathy -Physiatry consulted, recommendations appreciated -Continue with gabapentin. Baclofen 5 mg TID -Weaned off Suboxone #. Hypertension -Hold antihypertensives as BPs soft # NIDDM type 2 -Continue with insulin sliding scale #. Hypothyroidism -Continue with levothyroxine # Migraine headache -Continue with acetaminophen as needed #. Dyslipidemia -Continue with atorvastatin and aspirin #. GERD -Continue with famotidine #. Obestiy -BMI 45.9 -Complicates care #. Drug rash -Possibly 2/2 oxybutynin vs fluconazole -Switched oxybutynin for Vesicare -improved #. DVT ppx -Lovenox VS, I&O, 24H, Fishbone Vital Signs/I&O Vital Signs Date Time Temp Pulse Resp B/P (MAP) Pulse Ox O2 Delivery O2 Flow Rate FiO2 10/12/20 17:16 16 Trach Collar 10/12/20 15:58 96 5.0 28 10/12/20 14:00 98.0 114 133/84 (100) I&O- Last 24 Hours up to 6 AM 10/12/20 06:00 Intake Total 2250 ml Output Total 900 ml Balance 1350 ml Laboratory Data 24H LABS Laboratory Tests 2 10/12/20 05:38: Nucleated Red Blood Cells % (auto) 0.0, Anion Gap 4L, Glomerular Filtration Rate > 60.0, Calcium Level 7.3L 10/12/20 08:26: Whole Blood Ionized Calcium 4.0L 10/12/20 16:25: Bedside Glucose (Misc Panel) 85 10/12/20 21:29: Bedside Glucose (Misc Panel) 90 CBC/BMP Laboratory Tests 10/12/20 05:38 FISH MOSHER MD October 12, 2020 21:55
[2020-10-12 22:00] VITALS: BP 116/72
[2020-10-12] MEDS: FERROUS GLUCONATE 324 MG TAB PO SCH (22:06)
[2020-10-12] MEDS: hydrOXYzine 25 MG TAB PO PRN (22:07)
[2020-10-12] MEDS: SENOKOT S TAB PO SCH (22:07)
[2020-10-12] MEDS: ATORVASTATIN 20 MG TAB PO SCH (22:08)
[2020-10-12] MEDS: **NOTE PATIENT COMMENT** MISC XX SCH (22:10)
[2020-10-13 02:55] VITALS: O2SAT 99
[2020-10-13] MEDS: PIPERACILLIN/TAZOBACTAM SOD 3.375 GM in D5W MINI-BAG PLUS 50 ML IV SCH ×4 (03:12→21:54)
[2020-10-13] MEDS: SODIUM CHLORIDE 0.9% INJ 10 ML SYR IV SCH ×2 (04:40→17:57)
[2020-10-13] MEDS: LEVOTHYROXINE 50MCG TABLET (0.05MG) PO SCH (05:37)
[2020-10-13 06:00] VITALS: BP 116/73
[2020-10-13] MEDS: IBUPROFEN 600MG TAB PO PRN (06:50)
[2020-10-13] MEDS: HumaLOG INSULIN (NovoLOG) PER UNIT SC SCH ×4 (08:55→21:00)
[2020-10-13] MEDS: SANTYL OINT 30GM TOP SCH (09:00)
[2020-10-13] MEDS: MOM 30ML SUSPENSION UDC PO SCH ×2 (10:12→21:54)
[2020-10-13] MEDS: ENOXAPARIN 120MG/0.8ML SYRINGE (J1650 PER 10MG) SC SCH ×2 (10:12→21:54)
[2020-10-13] MEDS: FOLIC ACID 1 MG TAB PO SCH (10:13)
[2020-10-13] MEDS: LIDOCAINE 5% (LIDODERM) PATCH TD SCH (10:13)
[2020-10-13] MEDS: ASPIRIN 81MG ENTERIC TABLET PO SCH (10:13)
[2020-10-13] MEDS: FUROSEMIDE 20 MG TAB PO SCH (10:14)
[2020-10-13] MEDS: CYANOCOBALAMIN 250 MCG TABLET PO SCH (10:15)
[2020-10-13] MEDS: BACLOFEN 5MG PER 1/2 TABLET PO SCH ×3 (10:15→22:04)
[2020-10-13] MEDS: METOCLOPRAMIDE 5 MG TAB PO SCH ×2 (10:15→22:04)
[2020-10-13] MEDS: PANTOPRAZOLE 40MG TAB (PROTONIX) PO SCH (10:15)
[2020-10-13] MEDS: SOLIFENACIN 5 MG TAB PO SCH (10:15)
[2020-10-13] MEDS: GABAPENTIN 300 MG CAP PO SCH ×3 (10:15→22:03)
[2020-10-13] MEDS: ACETAMINOPHEN 500 MG TAB PO SCH ×3 (10:16→22:04)
[2020-10-13] MEDS: NYSTATIN 100,000 UNITS/GM TOPICAL PWD 15 GM TOP SCH ×2 (10:16→22:05)
[2020-10-13] MEDS: DIAPER RELIEF PASTE (DESITIN) 60GM TOP SCH ×2 (10:16→21:56)
[2020-10-13] MEDS: oxyCODONE 5MG TAB PO PRN (10:40)
[2020-10-13 10:44] LABS: BASO # 0.1 10^3/uL (0.0-0.2); BASO % 0.6 % (0.0-1.0); EOS # 1.7 10^3/uL (0.0-0.5); EOS % 11.6 % (0.0-3.0); HEMATOCRIT 28.9 % (36.0-47.0); HEMOGLOBIN 8.8 g/dl (12.0-15.5); LYMPH # 1.8 10^3/uL (1.5-5.0); LYMPH % 12.2 % (24.0-44.0); MEAN CORPUSCULAR HEMOGLOBIN 26.3 pg (27.0-33.0); MEAN CORPUSCULAR HGB CONC 30.4 g/dl (32.0-36.5); MEAN CORPUSCULAR VOLUME 86.5 fl (80.0-96.0); MONO # 1.1 10^3/uL (0.0-0.8); MONO % 7.7 % (2.0-8.0); NEUTROPHILS # 9.7 10^3/uL (1.5-8.5); NEUTROPHILS % 67.5 % (36.0-66.0); PLATELET COUNT, AUTOMATED 488 10^3/uL (150-450); RED BLOOD COUNT 3.34 10^6/uL (4.00-5.40); WHITE BLOOD COUNT 14.4 10^3/uL (4.0-10.0)
[2020-10-13 11:15] LABS: ALT/SGPT 10 U/L (12-78); BILIRUBIN,TOTAL < 0.1 MG/DL (0.2-1.0); BLOOD UREA NITROGEN 13 MG/DL (7-18); CARBON DIOXIDE LEVEL 34 MEQ/L (21-32); CHLORIDE LEVEL 104 MEQ/L (98-107); CREATININE FOR GFR 0.44 MG/DL (0.55-1.30); GLOMERULAR FILTRATION RATE > 60.0 (>45); GLUCOSE, FASTING 95 MG/DL (70-100); MAGNESIUM LEVEL 2.1 MG/DL (1.8-2.4); SODIUM LEVEL 140 MEQ/L (136-145); TOTAL PROTEIN 5.4 GM/DL (6.4-8.2)
--- NOTE | 2020-10-13 12:07 | IPN ---
INFECTIOUS DISEASE PROGRESS NOTE DATE: 10/12/2020 SUBJECTIVE: Nadege seems to be in pain. She has not been able to receive narcotics before her dressing change. She has had no fever or chills. Her wound decubitus at the sacral area and ischial area seems to be doing better. There is no purulent discharge. She still had bladder incontinence. Complains of being short of breath when laying down. She has had diarrhea for the past three days and her MiraLax has not been given to her. She also has been receiving Milk of Magnesia since 10/06/2020 on a daily basis and Senokot two tablets at bedtime. She is currently day #11 of intravenous (IV) Zosyn for infected decubitus ulcers. LABORATORY DATA: White count 14.9, hemoglobin 9.1, hematocrit 29.5, platelets 488. Last erythrocyte sedimentation rate (ESR) done on 10/01/2020 was 92. Sodium 139, potassium 4.4, chloride 101, bicarbonate 34, BUN 13, creatinine 0.36, calcium 7.3. Wound culture was positive for Pasteurella multocida, Enterococcus faecalis, and Enterococcus avium on 10/01/2020. PHYSICAL EXAMINATION: Temperature 98, pulse 114, respirations 20, blood pressure 133/84, oxygen saturation 98% on FiO2 of 28%. HEART: Normal S1, S2. No murmurs. LUNGS: Diminished at the bases, but clear. Trach collar in place. ABDOMEN: Obese, soft, nontender with left lower quadrant colostomy with watery stools. EXTREMITIES: 2+ pitting edema. She has bilateral heel boots on. Decubitus ulcer, very large, on the sacral area measuring 20 cm with granulation tissue. There is an area of exposed bone in the center of the decubitus. Left ischial decubitus ulcer with exposed tendon and hip bone. Right ischial two ulcerations that are smaller in size measuring about 6 x 3 cm and 4 x 2 cm that are not infected look clean. IMPRESSION: 1. Infected sacral decubitus ulcer with bilateral ischial ulcers as well with exposed bone and tendon. Patient had diverting colostomy. She is currently having diarrhea from too many laxatives and they are currently on hold. She is day #11 of IV Zosyn for a positive culture of Pasteurella and Enterococcus, still had some leukocytosis. Will continue with IV Zosyn until labs improve. With the fact that she has exposed bone in the sacral area, she probably has chronic osteomyelitis. 2. Leaky Wood catheter due to bladder spasms. She had a Botox injection without any relief. placed on VESIcare. 3. Chronic pain. Patient is asking for narcotics and oxycodone has been restarted. Will consultation palliative care for further treatment options. PLAN: 1. Continue IV Zosyn. 2. Repeat CBC, erythrocyte sedimentation rate (ESR), C-reactive protein (CRP) on tomorrow. 3. Discuss the case with hospitalist, Dr. Cunningham regarding acute long-term rehabilitation as a better option for her. 4. Need to encourage nutrition and improved albumin i Her nutritional status needs to improve. Will repeat liver profile and albumin tomorrow. SAMD
[2020-10-13 14:00] VITALS: BP 121/76
[2020-10-13 16:10] VITALS: O2SAT 98
--- NOTE | 2020-10-13 16:59 | IPNPDOC ---
Date Seen The patient was seen on 10/13/20. Progress Note SUBJECTIVE: seen and examined at bedside. Pain improved with oxycodone. No more abdominal pain, nausea or vomiting. Denies chest pain, palpitations, sob. OBJECTIVE PHYSICAL EXAMINATION: VITAL SIGNS: Please see below. GENERAL: comfortable in bed HEENT: PERRLA CARDIOVASCULAR: RRR, normal S2, S2 RESPIRATORY: CTAB, fair air entry b/l ABDOMINAL: soft, obese, tender to palpation in RLQ. Stoma bag content brown stool. No blood. EXTREMITIES: trace edema, heel float boots. NEUROLOGICAL: functional paraplegia. PSYCHOLOGICAL: calm, cooperative, pleasant LABORATORY DATA, IMAGING STUDIES, MICROBIOLOGY: Please see below. DVT prophylaxis ordered?: lovenox 1 mg/kg q12h ASSESSMENT AND PLAN: PROBLEMS: # Leaking Garcia catheter 2/2 bladder spasms. Complicated by UTI #neurogenic bladder with chronic garcia -Patient initially completed a 10 day course of antibiotic (cefepime) - now zosyn day 10, followed by Dr. Lucio. -Garcia changed on 09/20 -Urology consulted, recommendations appreciated -Physiatry consulted, recommendations appreciated -Patient started on oxybutynin. May have had a reaction, now on Vesicare - D/w Urologist, Dr. Gabriel. - increased dose of vesicare to 10 mg daily - per Dr. Blanton ([facility]), trial valium 1 mg BID for bladder spasms, may titrate up - does not recommend suprapubic catheter, as will will likely not resolve issue of urine leakage - patient wishes to consider bilateral nephrostomy tubes to prevent urine leakage and chemical gomez onto sacral wounds - to discuss this, albeit radical option, with IR on 10/15/20 #. Sacral decubitus ulcer and bilateral ischial ulcer - Diverting colostomy completed 1 year ago to prevent infection of sacral decubitus ulcers - S/p debridement of sacral and bilateral ischial ulcers by Dr. Lopez on 09/13/2020 - Plastic surgery and advanced wound care following recommendations appreciated - D/w Dr. Lopez, improving, will avoid wound vac for now. - Leukocytosis labile.Remains afebrile - will monitor WBC. Presently on zosyn - ID following #. Pain control - Patient has been receiving Suboxone illegally. - tapered off of suboxone, rehab unable to provide - stop famotidine prn, replace with pantoprazole - Physiatry consulted, recommendation appreciated - added valium 1 mg BID for bladder spasms - will c/w baclofen 5 mg TID - due to severe pain during dressing changes gave morphine IV, oxycodone 5 mg q6h prn - palliative consult placed for pain control, and possible GOC discussion #RUE DVT - on therapeutic lovenox #nausea and vomiting - check KUB - zofran prn - having stool output into stoma # Acute on chronic iron deficient anemia -s/p 4 units transfused -Continue with iron supplementation -Continue with monitoring CBC #. Chronic lower extremity edema - DC furosemide due to patient's bladder spasms and urine leakage complicating wound care #. Chronic respiratory failure with hypoxia and hypercarbia with tracheostomy -At baseline -Continue with inhalers # Chronic constipation -Patient on senna, docusate, MiraLax, milk of mag # Chronic diastolic CHF -echo repeated on 10/03/20 - EF 70-75%, Grade 1 DD, small pericardial effusion without compression, LVH #. Neuropathy with muscle spasms and chronic back pain with lumbosacral radiculopathy -Physiatry consulted, recommendations appreciated -Continue with gabapentin. -Baclofen 5 mg TID -patient has been weaned off suboxone, as difficulty in finding rehab that would administer suboxone #. Hypertension -BP is appropriate - holding lasix to reduce urine leakage # NIDDM type 2 -Continue with insulin sliding scale #. Hypothyroidism -Continue with levothyroxine # Migraine headache -Continue with acetaminophen as needed #. Dyslipidemia -Continue with atorvastatin and aspirin #. GERD -Continue with pantoprazole #. Obestiy -BMI 45.9 -Complicates care #. Drug rash -improved after DC of oxybutinin - prn IV benadryl and topical hydrocortisone #. DVT ppx -Lovenox Disposition: Perhaps a better option is [place] [facility] or LTAC Patient's nutritional status needs to be improved. Added mikal BID. Palliative care consult placed for GOC and pain control. Discussed with patient and life partner (Mr. Choco Sinha) at bedside, agree for palliative consult for assistance with pain control. VS, I&O, 24H, Fishbone Vital Signs/I&O Vital Signs Date Time Temp Pulse Resp B/P (MAP) Pulse Ox O2 Delivery O2 Flow Rate FiO2 10/13/20 16:10 98 Trach Collar 5.0 28 10/13/20 14:00 98.4 104 19 121/76 (91) I&O- Last 24 Hours up to 6 AM 10/13/20 06:00 Intake Total 1540 ml Output Total 1350 ml Balance 190 ml Laboratory Data 24H LABS Laboratory Tests 2 10/12/20 21:29: Bedside Glucose (Misc Panel) 90 10/13/20 06:21: Bedside Glucose (Misc Panel) 82 10/13/20 10:32: Immature Granulocyte % (Auto) 0.4, Neutrophils (%) (Auto) 67.5H, Lymphocytes (%) (Auto) 12.2L, Monocytes (%) (Auto) 7.7, Eosinophils (%) (Auto) 11.6H, Basophils (%) (Auto) 0.6, Neutrophils # (Auto) 9.7H, Lymphocytes # (Auto) 1.8, Monocytes # (Auto) 1.1H, Eosinophils # (Auto) 1.7H, Basophils # (Auto) 0.1, Nucleated Red Blood Cells % (auto) 0.0, Anion Gap 2L, Glomerular Filtration Rate > 60.0, Calcium Level 7.0L, Magnesium Level 2.1, Total Bilirubin < 0.1L, Aspartate Amino Transf (AST/SGOT) 20, Alanine Aminotransferase (ALT/SGPT) 10L, Alkaline Phosphatase 220H, Total Protein 5.4L, Albumin 1.0L, Albumin/Globulin Ratio 0.2L 10/13/20 12:03: Bedside Glucose (Misc Panel) 91 10/13/20 16:33: Bedside Glucose (Misc Panel) 143H CBC/BMP Laboratory Tests 10/13/20 10:32 FISH MOSHER MD October 13, 2020 16:59
[2020-10-13] MEDS: diazePAM 2 MG TAB PO SCH ×2 (17:54→21:53)
[2020-10-13 22:00] VITALS: BP 121/78
[2020-10-13] MEDS: ATORVASTATIN 20 MG TAB PO SCH (22:03)
[2020-10-13] MEDS: SENOKOT S TAB PO SCH (22:03)
[2020-10-13] MEDS: FERROUS GLUCONATE 324 MG TAB PO SCH (22:04)
[2020-10-13] MEDS: **NOTE PATIENT COMMENT** MISC XX SCH (22:05)
[2020-10-14 00:48] VITALS: O2SAT 98
[2020-10-14] MEDS: SODIUM CHLORIDE 0.9% INJ 10 ML SYR IV PRN ×2 (03:09→23:39)
[2020-10-14] MEDS: PIPERACILLIN/TAZOBACTAM SOD 3.375 GM in D5W MINI-BAG PLUS 50 ML IV SCH ×4 (04:51→22:06)
[2020-10-14] MEDS: IBUPROFEN 600MG TAB PO PRN (05:50)
[2020-10-14] MEDS: LEVOTHYROXINE 50MCG TABLET (0.05MG) PO SCH (05:51)
[2020-10-14] MEDS: SODIUM CHLORIDE 0.9% INJ 10 ML SYR IV SCH ×2 (05:51→16:22)
[2020-10-14 06:00] VITALS: BP 143/93
[2020-10-14] MEDS: HumaLOG INSULIN (NovoLOG) PER UNIT SC SCH ×4 (08:42→21:00)
[2020-10-14] MEDS ORDERED: FUROSEMIDE 40 MG TAB PO SCH (09:00)
--- NOTE | 2020-10-14 10:29 | REP ---
INDICATION: inc edema COMPARISON: 10/08/2020. TECHNIQUE: Real time compression and duplex Doppler evaluation of the Left upper extremity deep venous system is performed. FINDINGS: The Left subclavian, jugular, axillary, brachial, basilic and cephalic veins are fully compressible where accessible with transducer pressure, and demonstrate no intraluminal thrombus and normal venous waveforms. There is no evidence of deep venous thrombosis. IMPRESSION: No evidence of deep venous thrombosis of the Left upper extremity deep vein system. <Electronically signed by Bishop Hull > 10/14/20 1027
[2020-10-14] MEDS: ENOXAPARIN 120MG/0.8ML SYRINGE (J1650 PER 10MG) SC SCH ×2 (10:33→21:57)
[2020-10-14] MEDS: DIAPER RELIEF PASTE (DESITIN) 60GM TOP SCH ×2 (10:34→21:59)
[2020-10-14] MEDS: NYSTATIN 100,000 UNITS/GM TOPICAL PWD 15 GM TOP SCH ×2 (10:34→22:00)
[2020-10-14] MEDS: LIDOCAINE 5% (LIDODERM) PATCH TD SCH (10:34)
[2020-10-14] MEDS: MOM 30ML SUSPENSION UDC PO SCH ×2 (10:35→21:56)
[2020-10-14] MEDS: FOLIC ACID 1 MG TAB PO SCH (10:35)
[2020-10-14] MEDS: METOCLOPRAMIDE 5 MG TAB PO SCH ×2 (10:35→21:59)
[2020-10-14] MEDS: CYANOCOBALAMIN 250 MCG TABLET PO SCH (10:35)
[2020-10-14] MEDS: ASPIRIN 81MG ENTERIC TABLET PO SCH (10:35)
[2020-10-14] MEDS: SOLIFENACIN 5 MG TAB PO SCH (10:35)
[2020-10-14] MEDS: SANTYL OINT 30GM TOP SCH (10:35)
[2020-10-14] MEDS: ACETAMINOPHEN 500 MG TAB PO SCH ×3 (10:36→22:01)
[2020-10-14] MEDS: diazePAM 2 MG TAB PO SCH ×2 (10:36→21:59)
[2020-10-14] MEDS: BACLOFEN 5MG PER 1/2 TABLET PO SCH ×3 (10:36→21:57)
[2020-10-14] MEDS: PANTOPRAZOLE 40MG TAB (PROTONIX) PO SCH (10:36)
[2020-10-14] MEDS: oxyCODONE 5MG TAB PO PRN ×2 (10:36→18:06)
[2020-10-14] MEDS: GABAPENTIN 300 MG CAP PO SCH ×3 (10:37→21:57)
[2020-10-14 11:54] VITALS: O2SAT 100
[2020-10-14 14:00] VITALS: BP 136/80
--- NOTE | 2020-10-14 17:14 | IPN ---
PROGRESS NOTE DATE: 10/14/2020 SUBJECTIVE: Nadege is on [facility]. Seen yesterday by Dr. Lucio from Infectious Disease. On day 12 of IV Zosyn for positive culture for pasteurella and enterococcus. She suspects chronic osteomyelitis. She is back on opiates for her chronic sacral pain. She is concerned about the persistent swelling in her left upper extremity. She had an ultrasound done six days ago that was negative. Cubitus ulcer was evaluated yesterday by Dr. Lucio. OBJECTIVE: VITAL SIGNS: Afebrile, vital signs as listed. GENERAL APPEARANCE: She is alert and conversant. EXTREMITIES: Left upper extremity with 2+ edema and quite swollen in the hand. LUNGS: Clear. HEART: Regular rate and rhythm. ABDOMEN: Soft. Ostomy is functioning. IMPRESSION AND PLAN: 1. Swollen left upper extremity. Per patient edema is increasing. I will repeat the ultrasound of her left upper extremity to rule out DVT. 2. Sacral ulcer with suspected osteomyelitis. Antibiotic therapy per Dr. Lucio. She also has Dr. Lopez of Plastic Surgery involved who has done debridements. She has a wound V.A.C. on. The rest of her acute medical problems are stable at this time.
[2020-10-14] MEDS: **NOTE PATIENT COMMENT** MISC XX SCH (21:00)
[2020-10-14] MEDS: FERROUS GLUCONATE 324 MG TAB PO SCH (21:57)
[2020-10-14] MEDS: SENOKOT S TAB PO SCH (21:58)
[2020-10-14 22:00] VITALS: BP 127/70; O2SAT 100
[2020-10-14] MEDS: ATORVASTATIN 20 MG TAB PO SCH (22:00)
[2020-10-15] MEDS: PIPERACILLIN/TAZOBACTAM SOD 3.375 GM in D5W MINI-BAG PLUS 50 ML IV SCH ×4 (03:57→21:38)
[2020-10-15] MEDS: LEVOTHYROXINE 50MCG TABLET (0.05MG) PO SCH (05:15)
[2020-10-15] MEDS: SODIUM CHLORIDE 0.9% INJ 10 ML SYR IV SCH ×2 (05:16→16:37)
[2020-10-15 05:45] LABS: BASO # 0.1 10^3/uL (0.0-0.2); BASO % 0.8 % (0.0-1.0); EOS # 1.8 10^3/uL (0.0-0.5); EOS % 14.9 % (0.0-3.0); HEMATOCRIT 25.5 % (36.0-47.0); HEMOGLOBIN 7.7 g/dl (12.0-15.5); LYMPH # 2.1 10^3/uL (1.5-5.0); LYMPH % 17.9 % (24.0-44.0); MEAN CORPUSCULAR HEMOGLOBIN 26.6 pg (27.0-33.0); MEAN CORPUSCULAR HGB CONC 30.2 g/dl (32.0-36.5); MEAN CORPUSCULAR VOLUME 87.9 fl (80.0-96.0); MONO # 1.3 10^3/uL (0.0-0.8); MONO % 10.6 % (2.0-8.0); NEUTROPHILS # 6.6 10^3/uL (1.5-8.5); NEUTROPHILS % 55.1 % (36.0-66.0); PLATELET COUNT, AUTOMATED 468 10^3/uL (150-450)
[2020-10-15 06:00] VITALS: BP 125/68
[2020-10-15 06:05] LABS: ERYTHROCYTE SEDIMENTATION RATE 73 mm/hr (0-30)
[2020-10-15 06:06] LABS: ALBUMIN 1.1 GM/DL (3.2-5.2); ALT/SGPT 12 U/L (12-78); BILIRUBIN,TOTAL 0.1 MG/DL (0.2-1.0); BLOOD UREA NITROGEN 11 MG/DL (7-18); C REACTIVE PROTEIN QUANTITATIV 3.99 MG/DL (0.00-0.30); CALCIUM LEVEL 7.1 MG/DL (8.8-10.2); CARBON DIOXIDE LEVEL 30 MEQ/L (21-32); CHLORIDE LEVEL 107 MEQ/L (98-107); CREATININE FOR GFR 0.27 MG/DL (0.55-1.30); GLOMERULAR FILTRATION RATE > 60.0 (>45); GLUCOSE, FASTING 90 MG/DL (70-100); POTASSIUM SERUM 4.5 MEQ/L (3.5-5.1); SODIUM LEVEL 141 MEQ/L (136-145); TOTAL PROTEIN 4.8 GM/DL (6.4-8.2)
[2020-10-15] MEDS: IBUPROFEN 600MG TAB PO PRN (06:34)
[2020-10-15] MEDS: HumaLOG INSULIN (NovoLOG) PER UNIT SC SCH ×4 (07:30→21:00)
[2020-10-15] MEDS: MOM 30ML SUSPENSION UDC PO SCH ×3 (09:00→21:31)
[2020-10-15] MEDS: NYSTATIN 100,000 UNITS/GM TOPICAL PWD 15 GM TOP SCH ×2 (09:51→21:38)
[2020-10-15] MEDS: LIDOCAINE 5% (LIDODERM) PATCH TD SCH (09:51)
[2020-10-15] MEDS: ENOXAPARIN 120MG/0.8ML SYRINGE (J1650 PER 10MG) SC SCH ×2 (09:51→21:37)
[2020-10-15] MEDS: BACLOFEN 5MG PER 1/2 TABLET PO SCH ×3 (09:52→21:32)
[2020-10-15] MEDS: PANTOPRAZOLE 40MG TAB (PROTONIX) PO SCH (09:52)
[2020-10-15] MEDS: SANTYL OINT 30GM TOP SCH (09:52)
[2020-10-15] MEDS: DIAPER RELIEF PASTE (DESITIN) 60GM TOP SCH ×2 (09:52→21:39)
[2020-10-15] MEDS: METOCLOPRAMIDE 5 MG TAB PO SCH ×2 (09:52→21:31)
[2020-10-15] MEDS: CYANOCOBALAMIN 250 MCG TABLET PO SCH (09:52)
[2020-10-15] MEDS: ASPIRIN 81MG ENTERIC TABLET PO SCH (09:52)
[2020-10-15] MEDS: oxyCODONE 5MG TAB PO PRN (09:52)
[2020-10-15] MEDS: FOLIC ACID 1 MG TAB PO SCH (09:52)
[2020-10-15] MEDS: diazePAM 2 MG TAB PO SCH ×2 (09:52→21:31)
[2020-10-15] MEDS: GABAPENTIN 300 MG CAP PO SCH ×3 (09:53→21:32)
[2020-10-15] MEDS: SOLIFENACIN 5 MG TAB PO SCH (09:53)
[2020-10-15] MEDS: ACETAMINOPHEN 500 MG TAB PO SCH ×3 (09:53→21:32)
[2020-10-15 12:26] VITALS: O2SAT 100
[2020-10-15 14:00] VITALS: BP 121/69
[2020-10-15] MEDS: ONDANSETRON 4MG/2ML VIAL IV PRN (21:30)
[2020-10-15] MEDS: SENOKOT S TAB PO SCH (21:30)
[2020-10-15] MEDS: FERROUS GLUCONATE 324 MG TAB PO SCH (21:31)
[2020-10-15] MEDS: ATORVASTATIN 20 MG TAB PO SCH (21:32)
[2020-10-15] MEDS: **NOTE PATIENT COMMENT** MISC XX SCH (21:38)
[2020-10-15 21:51] VITALS: O2SAT 100
[2020-10-15 22:00] VITALS: BP 110/63
[2020-10-15] MEDS: SODIUM CHLORIDE 0.9% INJ 10 ML SYR IV PRN (22:58)
[2020-10-16] MEDS: PIPERACILLIN/TAZOBACTAM SOD 3.375 GM in D5W MINI-BAG PLUS 50 ML IV SCH ×4 (05:08→22:15)
[2020-10-16] MEDS: LEVOTHYROXINE 50MCG TABLET (0.05MG) PO SCH (05:09)
[2020-10-16] MEDS: IBUPROFEN 600MG TAB PO PRN (05:15)
[2020-10-16 06:00] VITALS: BP 118/69
[2020-10-16] MEDS: SODIUM CHLORIDE 0.9% INJ 10 ML SYR IV SCH ×2 (06:18→17:58)
[2020-10-16] MEDS: ONDANSETRON 4MG/2ML VIAL IV PRN (06:19)
[2020-10-16] MEDS: HumaLOG INSULIN (NovoLOG) PER UNIT SC SCH ×4 (07:30→19:49)
[2020-10-16] MEDS: ENOXAPARIN 120MG/0.8ML SYRINGE (J1650 PER 10MG) SC SCH ×2 (10:26→22:14)
[2020-10-16] MEDS: MOM 30ML SUSPENSION UDC PO SCH ×2 (10:26→22:16)
[2020-10-16] MEDS: diazePAM 2 MG TAB PO SCH ×2 (10:26→22:14)
[2020-10-16] MEDS: ASPIRIN 81MG ENTERIC TABLET PO SCH (10:27)
[2020-10-16] MEDS: METOCLOPRAMIDE 5 MG TAB PO SCH ×2 (10:27→22:15)
[2020-10-16] MEDS: ACETAMINOPHEN 500 MG TAB PO SCH ×3 (10:28→22:15)
[2020-10-16] MEDS: BACLOFEN 5MG PER 1/2 TABLET PO SCH ×3 (10:28→22:16)
[2020-10-16] MEDS: CYANOCOBALAMIN 250 MCG TABLET PO SCH (10:28)
[2020-10-16] MEDS: GABAPENTIN 300 MG CAP PO SCH ×3 (10:29→22:16)
[2020-10-16] MEDS: SOLIFENACIN 5 MG TAB PO SCH (10:29)
[2020-10-16] MEDS: FOLIC ACID 1 MG TAB PO SCH (10:29)
[2020-10-16] MEDS: PANTOPRAZOLE 40MG TAB (PROTONIX) PO SCH (10:30)
[2020-10-16] MEDS: LIDOCAINE 5% (LIDODERM) PATCH TD SCH (10:30)
[2020-10-16] MEDS: NYSTATIN 100,000 UNITS/GM TOPICAL PWD 15 GM TOP SCH ×2 (10:31→22:16)
[2020-10-16] MEDS: DIAPER RELIEF PASTE (DESITIN) 60GM TOP SCH ×2 (10:31→22:16)
[2020-10-16] MEDS: SANTYL OINT 30GM TOP SCH (10:31)
[2020-10-16] MEDS: SODIUM CHLORIDE 0.9% INJ 10 ML SYR IV PRN ×2 (12:13→23:46)
[2020-10-16 14:00] VITALS: BP 123/71
[2020-10-16 15:00] VITALS: O2SAT 100
--- NOTE | 2020-10-16 15:43 | IPNPDOC ---
Subjective Date Seen The patient was seen on 10/16/20. Subjective Chief Complaint/HPI Laying in bed, c/o pain in back and legs. hgb lower this am, no melena has LUE arm hematoma likely reason for drop in hgb Objective Physical Examination General Exam: Positive: Alert, Cooperative Eye Exam: Negative: Sclera icteric ENT Exam: Positive: Other ENT (tracheostomy) Chest Exam: Positive: Clear to auscultation Heart Exam: Positive: Rate Normal, Regular Rhythm Abdomen Exam: Positive: Normal bowel sounds, Soft Extremity Exam: Positive: Edema (bilateral pitting edema, LUE hematoma) Neuro Exam: Negative: Normal Speech Assessment /Plan Assessment # Leaking Garcia catheter 2/2 bladder spasms. Complicated by UTI #neurogenic bladder with chronic garcia -Patient initially completed a 10 day course of antibiotic (cefepime) - now zosyn day 10, followed by Dr. Lucio. -Garcia changed on 09/20 -Urology consulted, recommendations appreciated -Physiatry consulted, recommendations appreciated -Patient started on oxybutynin. May have had a reaction, now on Vesicare - D/w Urologist, Dr. Gabriel. - increased dose of vesicare to 10 mg daily - per Dr. Blanton ([facility]), trial valium 1 mg BID for bladder spasms, may titrate up - does not recommend suprapubic catheter, as will will likely not resolve issue of urine leakage - patient wishes to consider bilateral nephrostomy tubes to prevent urine leakage and chemical gomez onto sacral wounds - to discuss this, albeit radical option, with IR on 10/15/20 #. Infected Sacral decubitus ulcer and bilateral ischial ulcer - Diverting colostomy completed 1 year ago to prevent infection of sacral decubitus ulcers - S/p debridement of sacral and bilateral ischial ulcers by Dr. Lopez on 09/13/2020 - Plastic surgery and advanced wound care following recommendations appreciated - D/w Dr. Lopez, improving, will avoid wound vac for now. - Leukocytosis labile.Remains afebrile - will monitor WBC. Presently on zosyn - ID following #. Pain control - Patient has been receiving Suboxone illegally. - tapered off of suboxone, rehab unable to provide - stop famotidine prn, replace with pantoprazole - Physiatry consulted, recommendation appreciated - added valium 1 mg BID for bladder spasms - will c/w baclofen 5 mg TID - due to severe pain during dressing changes gave morphine IV, oxycodone 5 mg q6h prn - palliative consult placed for pain control, and possible GOC discussion #RUE DVT - on therapeutic lovenox #nausea and vomiting - check KUB - zofran prn - having stool output into stoma # Acute on chronic iron deficient anemia -s/p 4 units transfused -Continue with iron supplementation -Continue with monitoring CBC # Chronic lower extremity edema - DC furosemide due to patient's bladder spasms and urine leakage complicating wound care #. Chronic respiratory failure with hypoxia and hypercarbia with tracheostomy -At baseline -Continue with inhalers # Chronic constipation -Patient on senna, docusate, MiraLax, milk of mag # Chronic diastolic CHF -echo repeated on 10/03/20 - EF 70-75%, Grade 1 DD, small pericardial effusion without compression, LVH #. Neuropathy with muscle spasms and chronic back pain with lumbosacral radiculopathy -Physiatry consulted, recommendations appreciated -Continue with gabapentin. -Baclofen 5 mg TID -patient has been weaned off suboxone, as difficulty in finding rehab that would administer suboxone #. Hypertension -BP is appropriate - holding lasix to reduce urine leakage # NIDDM type 2 -Continue with insulin sliding scale #. Hypothyroidism -Continue with levothyroxine # Migraine headache -Continue with acetaminophen as needed #. Dyslipidemia -Continue with atorvastatin and aspirin #. GERD -Continue with pantoprazole #. Obestiy -BMI 45.9 -Complicates care #. Drug rash -improved after DC of oxybutinin - prn IV benadryl and topical hydrocortisone #. DVT ppx -Lovenox Disposition: Patient does not wish to be transfer to [place]. Perhaps a better option is [facility] or LTAC Patient's nutritional status needs to be improved. Added mikal BID. Palliative care consult placed for GOC and pain control. Plan/VTE VTE Prophylaxis Ordered?: Yes VS, I&O, 24H, Fishbone Vital Signs/I&O Vital Signs Date Time Temp Pulse Resp B/P (MAP) Pulse Ox O2 Delivery O2 Flow Rate FiO2 10/16/20 15:00 100 Trach Collar 5.0 28 10/16/20 14:00 97.4 103 20 123/71 (88) I&O- Last 24 Hours up to 6 AM 10/16/20 06:00 Intake Total 470 ml Output Total 1300 ml Balance -830 ml Laboratory Data 24H LABS Laboratory Tests 2 10/15/20 16:34: Bedside Glucose (Misc Panel) 113 10/15/20 19:45: Bedside Glucose (Misc Panel) 106 10/16/20 06:16: Bedside Glucose (Misc Panel) 89 10/16/20 11:45: Bedside Glucose (Misc Panel) 77L CECELIA ORTEGA MD October 16, 2020 15:43
[2020-10-16] MEDS: **NOTE PATIENT COMMENT** MISC XX SCH (21:00)
[2020-10-16 22:00] VITALS: BP 116/72
[2020-10-16] MEDS: FERROUS GLUCONATE 324 MG TAB PO SCH (22:15)
[2020-10-16] MEDS: SENOKOT S TAB PO SCH (22:15)
[2020-10-16] MEDS: ATORVASTATIN 20 MG TAB PO SCH (22:16)
[2020-10-17] VITALS (9 sets, daily range): BP systolic 102–133; BP diastolic 63–77; O2SAT 100
[2020-10-17] MEDS: PIPERACILLIN/TAZOBACTAM SOD 3.375 GM in D5W MINI-BAG PLUS 50 ML IV SCH ×3 (04:48→16:51)
[2020-10-17] MEDS: LEVOTHYROXINE 50MCG TABLET (0.05MG) PO SCH (05:33)
[2020-10-17] MEDS: SODIUM CHLORIDE 0.9% INJ 10 ML SYR IV SCH ×2 (05:34→19:33)
[2020-10-17] MEDS: IBUPROFEN 600MG TAB PO PRN ×2 (06:35→16:50)
[2020-10-17] MEDS: HumaLOG INSULIN (NovoLOG) PER UNIT SC SCH ×4 (07:30→21:00)
[2020-10-17] MEDS: ASPIRIN 81MG ENTERIC TABLET PO SCH (08:50)
[2020-10-17] MEDS: FOLIC ACID 1 MG TAB PO SCH (08:50)
[2020-10-17] MEDS: SOLIFENACIN 5 MG TAB PO SCH (08:50)
[2020-10-17] MEDS: BACLOFEN 5MG PER 1/2 TABLET PO SCH ×3 (08:52→21:27)
[2020-10-17] MEDS: PANTOPRAZOLE 40MG TAB (PROTONIX) PO SCH (08:52)
[2020-10-17] MEDS: GABAPENTIN 300 MG CAP PO SCH ×3 (08:52→21:26)
[2020-10-17] MEDS: CYANOCOBALAMIN 250 MCG TABLET PO SCH (08:52)
[2020-10-17] MEDS: METOCLOPRAMIDE 5 MG TAB PO SCH ×2 (08:53→21:26)
[2020-10-17] MEDS: ACETAMINOPHEN 500 MG TAB PO SCH ×3 (08:53→21:27)
[2020-10-17] MEDS: diazePAM 2 MG TAB PO SCH ×2 (08:53→21:25)
[2020-10-17] MEDS: oxyCODONE 5MG TAB PO PRN (08:54)
[2020-10-17] MEDS: NYSTATIN 100,000 UNITS/GM TOPICAL PWD 15 GM TOP SCH ×2 (08:55→21:27)
[2020-10-17] MEDS: SANTYL OINT 30GM TOP SCH (08:55)
[2020-10-17] MEDS: DIAPER RELIEF PASTE (DESITIN) 60GM TOP SCH ×2 (08:55→21:28)
[2020-10-17] MEDS: LIDOCAINE 5% (LIDODERM) PATCH TD SCH (08:56)
[2020-10-17] MEDS: ENOXAPARIN 120MG/0.8ML SYRINGE (J1650 PER 10MG) SC SCH (08:56)
[2020-10-17] MEDS: MOM 30ML SUSPENSION UDC PO SCH ×2 (08:57→21:00)
[2020-10-17] MEDS: SODIUM CHLORIDE 0.9% INJ 10 ML SYR IV PRN (11:15)
[2020-10-17 13:02] LABS: MEAN CORPUSCULAR HEMOGLOBIN 26.7 pg (27.0-33.0); PLATELET COUNT, AUTOMATED 570 10^3/uL (150-450); RED BLOOD COUNT 1.91 10^6/uL (4.00-5.40)
[2020-10-17 13:09] LABS: HEMOGLOBIN 5.1 g/dl (12.0-15.5)
[2020-10-17 14:01] LABS: BASO # 0.1 10^3/uL (0.0-0.2); BASO % 0.6 % (0.0-1.0); EOS # 1.9 10^3/uL (0.0-0.5); EOS % 13.3 % (0.0-3.0); LYMPH # 2.5 10^3/uL (1.5-5.0); LYMPH % 17.2 % (24.0-44.0); MEAN CORPUSCULAR HEMOGLOBIN 27.1 pg (27.0-33.0); MEAN CORPUSCULAR HGB CONC 30.6 g/dl (32.0-36.5); MEAN CORPUSCULAR VOLUME 88.5 fl (80.0-96.0); MONO # 1.9 10^3/uL (0.0-0.8); MONO % 12.9 % (2.0-8.0); PLATELET COUNT, AUTOMATED 576 10^3/uL (150-450); RED BLOOD COUNT 1.92 10^6/uL (4.00-5.40)
[2020-10-17 14:15] LABS: WHITE BLOOD COUNT 14.6 10^3/uL (4.0-10.0)
[2020-10-17 14:17] LABS: HEMOGLOBIN 5.2 g/dl (12.0-15.5)
[2020-10-17 14:38] LABS: PERCENT SATURATION 37.8 % (13.2-45.0)
[2020-10-17] MEDS ORDERED: FUROSEMIDE 40MG/4ML VIAL (J1940) IV SCH (17:00)
--- NOTE | 2020-10-17 17:57 | REP ---
INDICATION: drop in hgb r/o retroperitoneal bleed COMPARISON: 09/07/2020. TECHNIQUE: CT Scan of the abdomen and pelvis was performed without intravenous contrast. Sagittal and coronal reconstruction images performed. FINDINGS: Lung bases: There are bibasilar fibro atelectatic changes. Liver: Hepatomegaly is again noted, the length of the liver is approximately 21.5 cm. Gallbladder: Prior cholecystectomy. Spleen: Grossly unremarkable. Adrenals: Normal. Pancreas: Grossly unremarkable.. Kidneys: No hydronephrosis. Ureters demonstrate no dilatation. There is a 5 mm calculus in the distal left ureter. There is a 3.4 cm cyst of the right kidney posteriorly. Small and large bowel: Colostomy again noted in the left lower abdomen. There diverticula of the lower left colon. There is no free air, obstruction or bowel wall thickening. Free fluid: None. Abdominal aorta: No aneurysm. Adenopathy: There is mild left inguinal adenopathy. Appendix: Not inflamed. Osseous structures: There are degenerative changes of the spine without compression deformity. Pelvis: No mass. No bladder calculus seen. There is a Wood catheter in the collapsed urinary bladder. Left gluteal soft tissue air and inflammatory changes seen just inferior to the left ischial tuberosity, with a possible small amount of fluid. That ischial tuberosity demonstrates new ill-defined lucency consistent with osteomyelitis. Midline sacral decubitus ulcer is again noted extending down to the posterior osseous surface of the sacrum similar to the prior exam. No sacral destruction is seen. There is no retroperitoneal bleed. IMPRESSION: Stable appearing sacral decubitus ulcer. More inferiorly in the left gluteal soft tissues there is extensive soft tissue air and inflammatory change, with a possible small amount of fluid. The left ischial tuberosity demonstrates new ill-defined lucency consistent with osteomyelitis at that location. There is a 5 mm calculus in the distal left ureter without hydroureteronephrosis. Otherwise no acute CT findings in the abdomen or pelvis. <Electronically signed by Bishop Hull > 10/17/20 [id number]
--- NOTE | 2020-10-17 18:17 | IPNPDOC ---
Subjective Date Seen The patient was seen on 10/17/20. Subjective Chief Complaint/HPI hemodynamically stable despite low hgb today, c/o left arm pain Objective Physical Examination General Exam: Positive: Alert, Cooperative Eye Exam: Negative: Sclera icteric ENT Exam: Positive: Other ENT (tracheostomy) Chest Exam: Positive: Clear to auscultation Heart Exam: Positive: Rate Normal, Regular Rhythm Abdomen Exam: Positive: Normal bowel sounds, Soft Extremity Exam: Positive: Edema (bilateral pitting edema, LUE hematoma) Neuro Exam: Negative: Normal Speech Assessment /Plan Assessment # Leaking Garcia catheter 2/2 bladder spasms. Complicated by UTI #neurogenic bladder with chronic garcia -Patient initially completed a 10 day course of antibiotic (cefepime) - now zosyn day 10, followed by Dr. Lucio. -Garcia changed on 09/20 -Urology consulted, recommendations appreciated -Physiatry consulted, recommendations appreciated -Patient started on oxybutynin. May have had a reaction, now on Vesicare - D/w Urologist, Dr. Gabriel. - increased dose of vesicare to 10 mg daily - per Dr. Blanton ([facility]), trial valium 1 mg BID for bladder spasms, may titrate up - does not recommend suprapubic catheter, as will will likely not resolve issue of urine leakage - patient wishes to consider bilateral nephrostomy tubes to prevent urine leakage and chemical gomez onto sacral wounds - to discuss this, albeit radical option, with IR on 10/15/20 #. Infected Sacral decubitus ulcer and bilateral ischial ulcer - Diverting colostomy completed 1 year ago to prevent infection of sacral decubitus ulcers - S/p debridement of sacral and bilateral ischial ulcers by Dr. Lopez on 09/13/2020 - Plastic surgery and advanced wound care following recommendations appreciated - D/w Dr. Lopez, improving, will avoid wound vac for now. - Leukocytosis labile.Remains afebrile - will monitor WBC. Presently on zosyn - ID following #. Pain control - Patient has been receiving Suboxone illegally. - tapered off of suboxone, rehab unable to provide - stop famotidine prn, replace with pantoprazole - Physiatry consulted, recommendation appreciated - added valium 1 mg BID for bladder spasms - will c/w baclofen 5 mg TID - due to severe pain during dressing changes gave morphine IV, oxycodone 5 mg q6h prn - palliative consult placed for pain control, and possible GOC discussion # Acute blood loss anemia 22 Left arm hematoma - stop lovenox and asa - CT abd/pelvis shows no retroperitoneal bleed - transfuse 2 units prbcs, recheck cbc 30 min after transfusion complete #RUE DVT - on therapeutic lovenox, but stopped on 10/17 2/2 drop in hgb #nausea and vomiting - check KUB - zofran prn - having stool output into stoma # Acute on chronic iron deficient anemia -s/p 4 units transfused -Continue with iron supplementation -Continue with monitoring CBC # Chronic lower extremity edema - DC furosemide due to patient's bladder spasms and urine leakage complicating wound care #. Chronic respiratory failure with hypoxia and hypercarbia with tracheostomy -At baseline -Continue with inhalers # Chronic constipation -Patient on senna, docusate, MiraLax, milk of mag # Chronic diastolic CHF -echo repeated on 10/03/20 - EF 70-75%, Grade 1 DD, small pericardial effusion without compression, LVH #. Neuropathy with muscle spasms and chronic back pain with lumbosacral radiculopathy -Physiatry consulted, recommendations appreciated -Continue with gabapentin. -Baclofen 5 mg TID -patient has been weaned off suboxone, as difficulty in finding rehab that would administer suboxone #. Hypertension -BP is appropriate - holding lasix to reduce urine leakage # NIDDM type 2 -Continue with insulin sliding scale #. Hypothyroidism -Continue with levothyroxine # Migraine headache -Continue with acetaminophen as needed #. Dyslipidemia -Continue with atorvastatin, hold aspirin 2/2 low hgb #. GERD -Continue with pantoprazole #. Obestiy -BMI 45.9 -Complicates care #. Drug rash -improved after DC of oxybutinin - prn IV benadryl and topical hydrocortisone #. DVT ppx -Lovenox stopped 2/2 drop in hgb Disposition: Patient does not wish to be transfer to [place]. Perhaps a better option is [place] rehab or LTAC P Plan/VTE VTE Prophylaxis Ordered?: No (drop in hgb) VS, I&O, 24H, Fishbone Vital Signs/I&O Vital Signs Date Time Temp Pulse Resp B/P (MAP) Pulse Ox O2 Delivery O2 Flow Rate FiO2 5/19/21 18:01 98.1 108 18 124/75 100 Trach Collar 5.0 28 I&O- Last 24 Hours up to 6 AM 10/17/20 06:00 Intake Total 935 ml Output Total 350 ml Balance 585 ml Laboratory Data 24H LABS Laboratory Tests 2 10/16/20 19:46: Bedside Glucose (Misc Panel) 110 10/17/20 05:48: Bedside Glucose (Misc Panel) 55L 10/17/20 06:16: Bedside Glucose (Misc Panel) 56L 10/17/20 06:53: Bedside Glucose (Misc Panel) 73L 10/17/20 08:47: Bedside Glucose (Misc Panel) 112 10/17/20 11:44: Bedside Glucose (Misc Panel) 119H 10/17/20 12:19: Nucleated Red Blood Cells % (auto) 0.0 10/17/20 13:35: Nucleated Red Blood Cells % (auto) 0.0, Immature Granulocyte % (Auto) 1.0, Neutrophils (%) (Auto) 55.0, Lymphocytes (%) (Auto) 17.2L, Monocytes (%) (Auto) 12.9H, Eosinophils (%) (Auto) 13.3H, Basophils (%) (Auto) 0.6, Neutrophils # ( Auto) 8.0, Lymphocytes # (Auto) 2.5, Monocytes # (Auto) 1.9H, Eosinophils # (Auto) 1.9H, Basophils # (Auto) 0.1, Reticulocyte # (auto) 35.3, Percent Reticulocyte Count 1.8H, Reticulocyte Hemoglobin Equivalent 34.4, Iron Level 31L, Total Iron Binding Capacity 82L, Transferrin % Saturation 37.8, Ferritin 174 10/17/20 16:48: Bedside Glucose (Misc Panel) 144H CBC/BMP Laboratory Tests 10/17/20 12:19 10/17/20 13:35 CECELIA ORTEGA MD October 17, 2020 18:17
[2020-10-17] MEDS: **NOTE PATIENT COMMENT** MISC XX SCH (21:00)
[2020-10-17] MEDS: LACTULOSE 20 GM/30 ML SYRUP UD PO SCH (21:24)
[2020-10-17] MEDS: SENOKOT S TAB PO SCH (21:24)
[2020-10-17] MEDS: ATORVASTATIN 20 MG TAB PO SCH (21:26)
[2020-10-17] MEDS: FERROUS GLUCONATE 324 MG TAB PO SCH (21:26)
[2020-10-17] MEDS: ONDANSETRON 4MG/2ML VIAL IV PRN (22:03)
[2020-10-18] VITALS (17 sets, daily range): BP systolic 102–152; BP diastolic 61–83; O2SAT 93
[2020-10-18] MEDS: PIPERACILLIN/TAZOBACTAM SOD 3.375 GM in D5W MINI-BAG PLUS 50 ML IV SCH ×5 (00:57→23:39)
[2020-10-18] MEDS: SODIUM CHLORIDE 0.9% INJ 10 ML SYR IV PRN (01:41)
[2020-10-18 01:58] LABS: MEAN CORPUSCULAR HEMOGLOBIN 27.1 pg (27.0-33.0); MEAN CORPUSCULAR VOLUME 87.6 fl (80.0-96.0); PLATELET COUNT, AUTOMATED 568 10^3/uL (150-450); WHITE BLOOD COUNT 13.5 10^3/uL (4.0-10.0)
[2020-10-18 02:05] LABS: HEMATOCRIT 18.4 % (36.0-47.0); HEMOGLOBIN 5.7 g/dl (12.0-15.5)
[2020-10-18] MEDS: oxyCODONE 5MG TAB PO PRN ×3 (06:34→23:39)
[2020-10-18] MEDS: LEVOTHYROXINE 50MCG TABLET (0.05MG) PO SCH (06:35)
[2020-10-18] MEDS: SODIUM CHLORIDE 0.9% INJ 10 ML SYR IV SCH ×2 (06:58→17:09)
[2020-10-18 07:20] LABS: BASO # 0.2 10^3/uL (0.0-0.2); BASO % 1.2 % (0.0-1.0); EOS % 12.9 % (0.0-3.0); HEMATOCRIT 21.1 % (36.0-47.0); LYMPH # 2.6 10^3/uL (1.5-5.0); LYMPH % 16.7 % (24.0-44.0); MEAN CORPUSCULAR HEMOGLOBIN 27.5 pg (27.0-33.0); MEAN CORPUSCULAR HGB CONC 31.3 g/dl (32.0-36.5); MEAN CORPUSCULAR VOLUME 87.9 fl (80.0-96.0); MONO # 2.2 10^3/uL (0.0-0.8); MONO % 13.9 % (2.0-8.0); NEUTROPHILS # 8.4 10^3/uL (1.5-8.5); NEUTROPHILS % 53.5 % (36.0-66.0); PLATELET COUNT, AUTOMATED 642 10^3/uL (150-450)
[2020-10-18 07:26] LABS: WHITE BLOOD COUNT 15.6 10^3/uL (4.0-10.0)
[2020-10-18 07:27] LABS: HEMOGLOBIN 6.6 g/dl (12.0-15.5)
[2020-10-18] MEDS: HumaLOG INSULIN (NovoLOG) PER UNIT SC SCH ×4 (07:30→21:00)
[2020-10-18 07:43] LABS: BLOOD UREA NITROGEN 9 MG/DL (7-18); CALCIUM LEVEL 7.4 MG/DL (8.8-10.2); CARBON DIOXIDE LEVEL 31 MEQ/L (21-32); CHLORIDE LEVEL 106 MEQ/L (98-107); CREATININE FOR GFR 0.28 MG/DL (0.55-1.30); GLOMERULAR FILTRATION RATE > 60.0 (>45); GLUCOSE, FASTING 86 MG/DL (70-100); POTASSIUM SERUM 4.5 MEQ/L (3.5-5.1); SODIUM LEVEL 141 MEQ/L (136-145)
[2020-10-18] MEDS: MOM 30ML SUSPENSION UDC PO SCH ×2 (09:00→21:00)
[2020-10-18] MEDS: diazePAM 2 MG TAB PO SCH ×2 (09:11→20:50)
[2020-10-18] MEDS: SOLIFENACIN 5 MG TAB PO SCH (09:12)
[2020-10-18] MEDS: METOCLOPRAMIDE 5 MG TAB PO SCH (09:12)
[2020-10-18] MEDS: CYANOCOBALAMIN 250 MCG TABLET PO SCH (09:12)
[2020-10-18] MEDS: GABAPENTIN 300 MG CAP PO SCH ×3 (09:12→20:50)
[2020-10-18] MEDS: ACETAMINOPHEN 500 MG TAB PO SCH ×3 (09:12→20:51)
[2020-10-18] MEDS: LACTULOSE 20 GM/30 ML SYRUP UD PO SCH ×4 (09:12→23:40)
[2020-10-18] MEDS: BACLOFEN 5MG PER 1/2 TABLET PO SCH ×3 (09:12→20:50)
[2020-10-18] MEDS: PANTOPRAZOLE 40MG TAB (PROTONIX) PO SCH (09:12)
[2020-10-18] MEDS: FOLIC ACID 1 MG TAB PO SCH (09:12)
[2020-10-18] MEDS: NYSTATIN 100,000 UNITS/GM TOPICAL PWD 15 GM TOP SCH ×2 (09:13→23:39)
[2020-10-18] MEDS: DIAPER RELIEF PASTE (DESITIN) 60GM TOP SCH ×2 (09:13→23:38)
[2020-10-18] MEDS: LIDOCAINE 5% (LIDODERM) PATCH TD SCH (09:13)
[2020-10-18] MEDS: SANTYL OINT 30GM TOP SCH (09:14)
--- NOTE | 2020-10-18 13:25 | IPNPDOC ---
Subjective Date Seen The patient was seen on 10/18/20. Subjective Chief Complaint/HPI - hgb remains low, no signs of active GI bleed - swelling in LUE has increased likely source of bleeding Objective Physical Examination General Exam: Positive: Alert, Cooperative, Mild Distress Eye Exam: Negative: Sclera icteric ENT Exam: Positive: Mucous membr. moist/pink, Other ENT (tracheostomy) Chest Exam: Positive: Clear to auscultation Heart Exam: Positive: Rate Normal, Regular Rhythm Abdomen Exam: Positive: Normal bowel sounds, Soft, Other (ostomy with formed stool, no bleeding noted) Extremity Exam: Positive: Edema (bilateral pitting edema, LUE arm swelling), Swelling Neuro Exam: Negative: Normal Speech Assessment /Plan Assessment # Leaking Garcia catheter 2/2 bladder spasms. Complicated by UTI #neurogenic bladder with chronic garcia -Patient initially completed a 10 day course of antibiotic (cefepime) - now on zosyn , followed by Dr. Lucio. -Garcia changed on 09/20 -Urology consulted, recommendations appreciated -Physiatry consulted, recommendations appreciated -Patient started on oxybutynin. May have had a reaction, now on Vesicare, increased dose of vesicare to 10 mg daily - per Dr. Blanton ([facility]), trial valium 1 mg BID for bladder spasms, may titrate up - does not recommend suprapubic catheter, as will will likely not resolve issue of urine leakage #. Infected Sacral decubitus ulcer and bilateral ischial ulcer - Diverting colostomy completed 1 year ago to prevent infection of sacral decubitus ulcers - S/p debridement of sacral and bilateral ischial ulcers by Dr. Lopez on 021 - Plastic surgery and advanced wound care following recommendations appreciated - D/w Dr. Lopez, improving, will avoid wound vac for now. - Leukocytosis labile.Remains afebrile - will monitor WBC. Presently on zosyn - ID following #. Pain control - Patient had been receiving Suboxone illegally. - tapered off of suboxone, rehab unable to provide - stop famotidine prn, replace with pantoprazole - Physiatry consulted, recommendation appreciated - added valium 1 mg BID for bladder spasms - will c/w baclofen 5 mg TID - due to severe pain during dressing changes gave morphine IV, oxycodone 5 mg q6h prn - palliative consult placed for pain control, and possible GOC discussion # Acute blood loss anemia 22 Left arm hematoma - discontinued lovenox and asa - CT abd/pelvis shows no retroperitoneal bleed - NO GI bleed noted - transfused total of 4 units prbcs on 10/17 + 10/18 #RUE DVT - on therapeutic lovenox, but stopped on 10/17 2/2 drop in hgb #nausea and vomiting - check KUB - zofran prn - having stool output into stoma # Acute on chronic iron deficient anemia -s/p 4 units transfused -Continue with iron supplementation -Continue with monitoring CBC # Chronic lower extremity edema - DC furosemide due to patient's bladder spasms and urine leakage complicating wound care # Chronic respiratory failure with hypoxia and hypercarbia with tracheostomy -At baseline -Continue with inhalers # Chronic constipation -Patient on senna, docusate, MiraLax, milk of mag # Chronic diastolic CHF -echo repeated on 10/03/20 - EF 70-75%, Grade 1 DD, small pericardial effusion without compression, LVH #. Neuropathy with muscle spasms and chronic back pain with lumbosacral radiculopathy -Physiatry consulted, recommendations appreciated -Continue with gabapentin. -Baclofen 5 mg TID -patient has been weaned off suboxone, as difficulty in finding rehab that would administer suboxone #. Hypertension -BP is appropriate - holding lasix to reduce urine leakage # NIDDM type 2 -Continue with insulin sliding scale #. Hypothyroidism -Continue with levothyroxine # Migraine headache -Continue with acetaminophen as needed #. Dyslipidemia -Continue with atorvastatin, hold aspirin 2/2 low hgb #. GERD -Continue with pantoprazole #. Obestiy -BMI 45.9 -Complicates care #. Drug rash -improved after DC of oxybutinin - prn IV benadryl and topical hydrocortisone # DVT ppx -Lovenox stopped 2/2 drop in hgb Disposition: d/w POA he is not interested in placement, will have palliative care consult to outline GOC and assist with pain control Plan/VTE VTE Prophylaxis Ordered?: No (drop in hgb) VS, I&O, 24H, Fishbone Vital Signs/I&O Vital Signs Date Time Temp Pulse Resp B/P (MAP) Pulse Ox O2 Delivery O2 Flow Rate FiO2 10/18/20 11:45 93 Trach Collar 5.0 28 10/18/20 07:04 18 10/18/20 06:30 97.9 101 151/83 I&O- Last 24 Hours up to 6 AM 10/18/20 06:00 Intake Total 1850 ml Output Total 2175 ml Balance -325 ml Laboratory Data 24H LABS Laboratory Tests 2 10/17/20 13:35: Immature Granulocyte % (Auto) 1.0, Neutrophils (%) (Auto) 55.0, Lymphocytes (%) (Auto) 17.2L, Monocytes (%) (Auto) 12.9H, Eosinophils (%) (Auto) 13.3H, Basophils (%) (Auto) 0.6, Neutrophils # (Auto) 8.0, Lymphocytes # (Auto) 2.5, Monocytes # (Auto) 1.9H, Eosinophils # (Auto) 1.9H, Basophils # (Auto) 0.1, Reticulocyte # (auto) 35.3, Nucleated Red Blood Cells % (auto) 0.0, Percent Reticulocyte Count 1.8H, Reticulocyte Hemoglobin Equivalent 34.4, Iron Level 31L, Total Iron Binding Capacity 82L, Transferrin % Saturation 37.8, Ferritin 174 10/17/20 16:48: Bedside Glucose (Misc Panel) 144H 10/17/20 21:28: Bedside Glucose (Misc Panel) 124H 10/18/20 01:40: Nucleated Red Blood Cells % (auto) 0.0 10/18/20 07:01: Immature Granulocyte % (Auto) 1.8, Neutrophils (%) (Auto) 53.5, Lymphocytes (%) (Auto) 16.7L, Monocytes (%) (Auto) 13.9H, Eosinophils (%) (Auto) 12.9H, Basophils (%) (Auto) 1.2H, Neutrophils # (Auto) 8.4, Lymphocytes # (Auto) 2.6, Monocytes # (Auto) 2.2H, Eosinophils # (Auto) 2.0H, Basophils # (Auto) 0.2, Nucleated Red Blood Cells % (auto) 0.1H, Anion Gap 4L, Glomerular Filtration Rate > 60.0, Calcium Level 7.4L, Magnesium Level 2.0 10/18/20 12:03: Bedside Glucose (Misc Panel) 88 CBC/BMP Laboratory Tests 10/17/20 13:35 10/18/20 01:40 10/18/20 07:01 CECELIA ORTEGA MD October 18, 2020 13:25
[2020-10-18] MEDS: ONDANSETRON 4MG/2ML VIAL IV PRN (14:05)
[2020-10-18] MEDS: METOCLOPRAMIDE INJ 10MG/2ML VIAL (J2765 PER 1) IV PRN (17:07)
[2020-10-18] MEDS: SENOKOT S TAB PO SCH (20:50)
[2020-10-18] MEDS: FERROUS GLUCONATE 324 MG TAB PO SCH (20:50)
[2020-10-18] MEDS: ATORVASTATIN 20 MG TAB PO SCH (20:50)
[2020-10-18] MEDS: **NOTE PATIENT COMMENT** MISC XX SCH (21:00)
[2020-10-18 21:23] LABS: HEMATOCRIT 24.2 % (36.0-47.0); HEMOGLOBIN 7.8 g/dl (12.0-15.5); MEAN CORPUSCULAR HEMOGLOBIN 28.2 pg (27.0-33.0); MEAN CORPUSCULAR HGB CONC 32.2 g/dl (32.0-36.5); MEAN CORPUSCULAR VOLUME 87.4 fl (80.0-96.0); PLATELET COUNT, AUTOMATED 606 10^3/uL (150-450); RED BLOOD COUNT 2.77 10^6/uL (4.00-5.40); WHITE BLOOD COUNT 15.8 10^3/uL (4.0-10.0)
[2020-10-19] MEDS: SODIUM CHLORIDE 0.9% INJ 10 ML SYR IV PRN (01:14)
[2020-10-19] MEDS: LEVOTHYROXINE 50MCG TABLET (0.05MG) PO SCH (05:08)
[2020-10-19] MEDS: LACTULOSE 20 GM/30 ML SYRUP UD PO SCH ×4 (05:09→18:00)
[2020-10-19] MEDS: PIPERACILLIN/TAZOBACTAM SOD 3.375 GM in D5W MINI-BAG PLUS 50 ML IV SCH ×4 (05:09→21:43)
[2020-10-19] MEDS: SODIUM CHLORIDE 0.9% INJ 10 ML SYR IV SCH ×2 (05:09→18:05)
[2020-10-19 06:47] VITALS: BP 150/90
[2020-10-19 06:47] LABS: BASO # 0.2 10^3/uL (0.0-0.2); BASO % 1.1 % (0.0-1.0); EOS # 2.3 10^3/uL (0.0-0.5); EOS % 14.6 % (0.0-3.0); HEMATOCRIT 24.9 % (36.0-47.0); LYMPH # 2.1 10^3/uL (1.5-5.0); LYMPH % 13.1 % (24.0-44.0); MEAN CORPUSCULAR HEMOGLOBIN 28.2 pg (27.0-33.0); MEAN CORPUSCULAR HGB CONC 32.1 g/dl (32.0-36.5); MEAN CORPUSCULAR VOLUME 87.7 fl (80.0-96.0); MONO # 2.4 10^3/uL (0.0-0.8); NEUTROPHILS # 8.7 10^3/uL (1.5-8.5); NEUTROPHILS % 54.5 % (36.0-66.0); PLATELET COUNT, AUTOMATED 640 10^3/uL (150-450); RED BLOOD COUNT 2.84 10^6/uL (4.00-5.40)
[2020-10-19 07:12] LABS: BLOOD UREA NITROGEN 8 MG/DL (7-18); CALCIUM LEVEL 7.5 MG/DL (8.8-10.2); CARBON DIOXIDE LEVEL 29 MEQ/L (21-32); CHLORIDE LEVEL 106 MEQ/L (98-107); CREATININE FOR GFR 0.26 MG/DL (0.55-1.30); GLOMERULAR FILTRATION RATE > 60.0 (>45); GLUCOSE, FASTING 97 MG/DL (70-100); MAGNESIUM LEVEL 1.7 MG/DL (1.8-2.4); POTASSIUM SERUM 4.4 MEQ/L (3.5-5.1); SODIUM LEVEL 139 MEQ/L (136-145)
[2020-10-19] MEDS: HumaLOG INSULIN (NovoLOG) PER UNIT SC SCH ×4 (07:30→21:00)
[2020-10-19 09:00] VITALS: O2SAT 100
[2020-10-19] MEDS: MOM 30ML SUSPENSION UDC PO SCH ×3 (09:00→21:00)
[2020-10-19] MEDS: LIDOCAINE 5% (LIDODERM) PATCH TD SCH (09:53)
[2020-10-19] MEDS: DIAPER RELIEF PASTE (DESITIN) 60GM TOP SCH ×2 (09:53→21:00)
[2020-10-19] MEDS: NYSTATIN 100,000 UNITS/GM TOPICAL PWD 15 GM TOP SCH ×2 (09:53→21:00)
[2020-10-19] MEDS: SANTYL OINT 30GM TOP SCH (09:54)
[2020-10-19] MEDS: oxyCODONE 5MG TAB PO PRN ×2 (09:54→21:45)
[2020-10-19] MEDS: GABAPENTIN 300 MG CAP PO SCH ×3 (09:54→21:44)
[2020-10-19] MEDS: SOLIFENACIN 5 MG TAB PO SCH (09:54)
[2020-10-19] MEDS: diazePAM 2 MG TAB PO SCH ×2 (09:54→21:46)
[2020-10-19] MEDS: CYANOCOBALAMIN 250 MCG TABLET PO SCH (09:55)
[2020-10-19] MEDS: ACETAMINOPHEN 500 MG TAB PO SCH ×3 (09:55→21:44)
[2020-10-19] MEDS: FOLIC ACID 1 MG TAB PO SCH (09:55)
[2020-10-19] MEDS: PANTOPRAZOLE 40MG TAB (PROTONIX) PO SCH (09:55)
[2020-10-19] MEDS: BACLOFEN 5MG PER 1/2 TABLET PO SCH ×3 (09:55→21:46)
[2020-10-19] MEDS: ONDANSETRON 4MG/2ML VIAL IV PRN ×2 (10:17→18:09)
[2020-10-19 10:30] VITALS: O2SAT 100
--- NOTE | 2020-10-19 12:53 | IPNPDOC ---
Subjective Date Seen The patient was seen on 10/19/20. Subjective Chief Complaint/HPI Nadege is c/o pain, BP is stable, she is not requiring any transfusions today. Spoke with her about hospice/palliative care she's open to thinking about it Objective Physical Examination General Exam: Positive: Alert, No Acute Distress Eye Exam: Positive: PERRLA, Conjunctiva & lids normal; Negative: Sclera icteric ENT Exam: Positive: Mucous membr. moist/pink Chest Exam: Positive: Clear to auscultation Heart Exam: Positive: Rate Normal, Regular Rhythm Abdomen Exam: Positive: Normal bowel sounds, Soft, Other (ostomy with formed stool) Extremity Exam: Positive: Edema (bilateral pitting edema, LUE arm swelling), Swelling Neuro Exam: Negative: Normal Speech Assessment /Plan Assessment # Leaking Garcia catheter 2/2 bladder spasms. Complicated by UTI #neurogenic bladder with chronic garcia -Patient initially completed a 10 day course of antibiotic (cefepime) - now on zosyn ,day # 18 -Garcia changed on 09/20 -Urology consulted, recommendations reviewed -Physiatry consulted, recommendations reviewed -Patient started on oxybutynin. May have had a reaction, now on Vesicare, increased dose of vesicare to 10 mg daily - per Dr. Blanton ([facility]), trial valium 1 mg BID for bladder spasms, may titrate up - does not recommend suprapubic catheter, as will will likely not resolve issue of urine leakage #. Infected Sacral decubitus ulcer and bilateral ischial ulcer - Diverting colostomy completed 1 year ago to prevent infection of sacral decubitus ulcers - S/p debridement of sacral and bilateral ischial ulcers by Dr. Lopez on 09/13/2020 - Plastic surgery and advanced wound care following recommendations appreciated - D/w Dr. Lopez, improving, will avoid wound vac for now. - Leukocytosis labile.Remains afebrile - will monitor WBC. Presently on zosyn - ID following #. Pain control - Patient had been receiving Suboxone illegally. - tapered off of suboxone, rehab unable to provide - stop famotidine prn, replace with pantoprazole - Physiatry consulted, recommendation appreciated - added valium 1 mg BID for bladder spasms - will c/w baclofen 5 mg TID - due to severe pain during dressing changes gave morphine IV, oxycodone 5 mg q6h prn - palliative consult placed for pain control, and possible GOC discussion # Acute blood loss anemia 22 Left arm hematoma - discontinued lovenox and asa - CT abd/pelvis shows no retroperitoneal bleed - NO GI bleed noted - transfused total of 4 units prbcs on 10/17 + 10/18 #RUE DVT - on therapeutic lovenox, but stopped on 10/17 2/2 drop in hgb #nausea and vomiting - check KUB - zofran prn - having stool output into stoma # Acute on chronic iron deficient anemia -s/p 4 units transfused -Continue with iron supplementation -Continue with monitoring CBC # Chronic lower extremity edema - DC furosemide due to patient's bladder spasms and urine leakage complicating wound care # Chronic respiratory failure with hypoxia and hypercarbia with tracheostomy -At baseline -Continue with inhalers # Chronic constipation -Patient on senna, docusate, MiraLax, milk of mag # Chronic diastolic CHF -echo repeated on 10/03/20 - EF 70-75%, Grade 1 DD, small pericardial effusion without compression, LVH #. Neuropathy with muscle spasms and chronic back pain with lumbosacral radiculopathy -Physiatry consulted, recommendations appreciated -Continue with gabapentin. -Baclofen 5 mg TID -patient has been weaned off suboxone, as difficulty in finding rehab that would administer suboxone #. Hypertension -BP is appropriate - holding lasix to reduce urine leakage # NIDDM type 2 -Continue with insulin sliding scale #. Hypothyroidism -Continue with levothyroxine # Migraine headache -Continue with acetaminophen as needed #. Dyslipidemia -Continue with atorvastatin, hold aspirin 2/2 low hgb #. GERD -Continue with pantoprazole #. Obestiy -BMI 45.9 -Complicates care #. Drug rash -improved after DC of oxybutinin - prn IV benadryl and topical hydrocortisone # DVT ppx -Lovenox stopped 2/2 drop in hgb Disposition: d/w POA he is not interested in placement, will have palliative care consult to outline GOC and assist with pain control Plan/VTE VTE Prophylaxis Ordered?: No (drop in hgb) VS, I&O, 24H, Fishbone Vital Signs/I&O Vital Signs Date Time Temp Pulse Resp B/P (MAP) Pulse Ox O2 Delivery O2 Flow Rate FiO2 5/21/21 10:56 20 10/19/20 09:54 Trach Collar 10/19/20 06:47 96.9 111 150/90 (110) 97 5.0 28 I&O- Last 24 Hours up to 6 AM0 10/19/20 06:00 Intake Total 1230 ml Output Total 1550 ml Balance -320 ml Laboratory Data 24H LABS Laboratory Tests 2 10/18/20 17:16: Bedside Glucose (Misc Panel) 105 10/18/20 21:02: Nucleated Red Blood Cells % (auto) 0.2H 10/18/20 21:09: Bedside Glucose (Misc Panel) 124H 10/19/20 05:58: Bedside Glucose (Misc Panel) 86 10/19/20 06:30: Immature Granulocyte % (Auto) 1.7, Neutrophils (%) (Auto) 54.5, Lymphocytes (%) (Auto) 13.1L, Monocytes (%) (Auto) 15.0H, Eosinophils (%) (Auto) 14.6H, Basophils (%) (Auto) 1.1H, Neutrophils # (Auto) 8.7H, Lymphocytes # (Auto) 2.1, Monocytes # (Auto) 2.4H, Eosinophils # (Auto) 2.3H, Basophils # (Auto) 0.2, Nucleated Red Blood Cells % (auto) 0.2H, Anion Gap 4L, Glomerular Filtration Rate > 60.0, Calcium Level 7.5L, Magnesium Level 1.7L 10/19/20 11:29: Bedside Glucose (Misc Panel) 150H CBC/BMP Laboratory Tests 10/18/20 21:02 10/19/20 06:30 CECELIA ORTEGA MD October 19, 2020 12:53
[2020-10-19] MEDS: FUROSEMIDE 40MG/4ML VIAL (J1940) IV SCH ×2 (13:29→21:48)
[2020-10-19] MEDS: METOCLOPRAMIDE INJ 10MG/2ML VIAL (J2765 PER 1) IV PRN ×2 (13:59→21:47)
[2020-10-19 14:00] VITALS: BP 138/70
--- NOTE | 2020-10-19 17:51 | IPNPDOC ---
Subjective General Date Seen: October 19, 2020 Subject Chief Complaint/History The patient is a 65-year-old female admitted with a reason for visit of Uti, Overactive Bladder. Patient with stage IV sacral and left ischial wound and stage 3 right ischial wound. Doing well. Patient s/p 2 units PRBC. Current Medications Current Medications Current Medications Medications (Trade) Dose Ordered Sig/Yonatan Route PRN Reason Start Time Stop Time Status Last Admin Dose Admin Acetaminophen (Tylenol Tab) 650 mg Q4HP PRN PO PAIN OR DISCOMFORT 09/07/20 21:10 10/06/20 17:47 DC 10/06/20 16:35 Acetaminophen (Tylenol Tab) 1,000 mg TID PO 10/06/20 21:00 10/07/20 16:32 DC 10/07/20 16:21 Acetaminophen (Tylenol Tab) 1,000 mg TID PO 10/07/20 16:00 Cancel Acetaminophen (Tylenol Tab) 1,000 mg TID PO 10/07/20 21:00 10/19/20 09:55 Albuterol Sulfate (Proventil Neb) 2.5 mg Q6HP PRN NEB SOB/WHEEZING 09/17/20 10:20 Artificial Tears (Akwa Tears) 2 drop TID PRN OU DRY EYES 09/07/20 13:55 10/09/20 01:29 Aspirin (Ecotrin) 81 mg DAILY PO 09/07/20 09:00 10/17/20 18:15 DC 10/17/20 08:50 Atorvastatin Calcium (Lipitor) 40 mg QHS PO 09/07/20 21:00 10/18/20 20:50 Baclofen (Lioresal) 5 mg BID PO 10/08/20 09:00 10/12/20 11:28 DC 10/12/20 08:06 Baclofen (Lioresal) 5 mg BID PO 10/03/20 21:00 10/04/20 18:00 DC 10/04/20 08:31 Baclofen (Lioresal) 5 mg DAILY PO 10/05/20 09:00 10/05/20 11:40 DC 10/05/20 08:50 Baclofen (Lioresal) 5 mg TID PO 10/12/20 16:00 10/19/20 09:55 Baclofen (Lioresal) 5 mg TID PO 10/07/20 09:00 10/07/20 06:49 DC Baclofen (Lioresal) 10 mg QHS PO 10/04/20 21:00 10/05/20 11:40 DC 10/04/20 20:25 Baclofen (Lioresal) 10 mg TID PO 10/05/20 16:00 10/06/20 22:32 DC 10/06/20 22:03 Buprenorphine/ Naloxone (Suboxone 2/ 0.5mg) 1 tab BID SL 09/28/20 21:00 09/29/20 10:30 DC 09/29/20 08:27 Buprenorphine/ Naloxone (Suboxone 2/ 0.5mg) 1 tab QPM SL 09/29/20 21:00 10/02/20 22:06 DC 10/02/20 20:41 Buprenorphine/ Naloxone (Suboxone 2/ 0.5mg) 1 tab Taper DAILY SL 10/03/20 09:00 10/09/20 08:59 DC 10/08/20 09:40 Buprenorphine/ Naloxone (Suboxone 2/ 0.5mg) 2 tab BID SL 09/07/20 21:00 09/28/20 11:12 DC 09/28/20 05:42 Buprenorphine/ Naloxone (Suboxone 2/ 0.5mg) 2 tab DAILY SL 09/30/20 09:00 10/02/20 22:06 DC 10/02/20 09:01 Cefepime HCl 1 gm/ Dextrose 50 ml @ 100 mls/hr Q12H IV 09/19/20 21:00 09/20/20 18:32 DC 09/20/20 09:18 Cefepime HCl 1 gm/ Dextrose 50 ml @ 100 mls/hr Q8H IV 09/20/20 18:25 09/28/20 11:43 DC 09/28/20 03:03 Cefepime HCl 1 gm/ Dextrose 50 ml @ 100 mls/hr Q8H IV 10/01/20 07:00 10/01/20 21:05 DC 10/01/20 16:10 Ceftriaxone Sodium 1 gm/ Dextrose 50 ml @ 100 mls/hr Q24H IV 09/07/20 13:00 09/07/20 14:56 DC 09/07/20 13:43 Cod Liver Oil/ Zinc Oxide (Desitin) 1 dose BID TOP 10/02/20 09:00 10/19/20 09:53 Collagenase (SantyL) Apply to wound bed ... DAILY TOP 10/09/20 09:00 10/19/20 09:54 Cyanocobalamin (Vitamin B12) 250 mcg DAILY PO 09/07/20 09:00 10/19/20 09:55 Dextrose (Dextrose 50%) 25 ml ASDIRECTED PRN IV SEE LABEL COMMENTS 09/07/20 14:10 10/07/20 06:56 Diazepam (Valium) 1 mg BID PO 10/13/20 09:00 10/19/20 09:54 Diphenhydramine HCl (Benadryl) 25 mg Q6HP PRN IV drug rash or itchy 10/04/20 08:00 10/09/20 08:36 Docusate Sodium (Colace) 100 mg BID PO 09/07/20 21:00 09/30/20 16:42 DC 09/30/20 09:39 Docusate Sodium (Colace) 200 mg BID PO 09/30/20 21:00 10/02/20 21:50 DC 10/02/20 20:41 Duloxetine HCl (Cymbalta) 45 mg BID PO 10/12/20 11:35 10/12/20 11:39 DC Duloxetine HCl (Cymbalta) 60 mg QHS PO 09/07/20 21:00 10/12/20 11:37 DC 10/11/20 21:57 Enoxaparin Sodium (Lovenox) 40 mg DAILY SC 09/08/20 09:00 10/08/20 16:07 DC 10/08/20 09:38 Enoxaparin Sodium (Lovenox) 120 mg BID SC 10/08/20 21:00 10/17/20 13:16 DC 10/17/20 08:56 Famotidine (Pepcid) 20 mg QHS PRN PO HEARTBURN 09/07/20 13:55 10/11/20 09:26 DC Fentanyl Citrate (Sublimaze) 25 mcg Q5MP PRN IV PAIN LEVEL 5-10 09/15/20 19:00 09/15/20 20:30 DC Fentanyl Citrate (Sublimaze) 25 mcg Q5MP PRN IV PAIN LEVEL 5-10 09/20/20 17:10 09/20/20 18:10 DC Fentanyl Citrate (Sublimaze) 25 mcg Q5MP PRN IV PAIN LEVEL 5-10 09/20/20 17:45 09/20/20 18:45 DC Ferrous Gluconate (Fergon) 324 mg QHS PO 09/07/20 21:00 10/18/20 20:50 Fluconazole (Diflucan) 150 mg DAILY PO 10/03/20 09:00 10/13/20 08:59 DC 10/12/20 08:11 Folic Acid (Folic Acid) 1 mg DAILY PO 09/07/20 09:00 10/19/20 09:55 Furosemide (LASIX injection) 40 mg BID@,17 IV 10/17/20 17:00 10/17/20 13:16 DC Furosemide (LASIX injection) 40 mg Q8H IV 10/19/20 13:00 10/19/20 13:29 Furosemide (Lasix) 20 mg DAILY PO 09/23/20 09:00 09/24/20 08:53 DC 09/23/20 11:18 Furosemide (Lasix) 40 mg DAILY PO 09/08/20 09:00 09/07/20 14:10 DC Furosemide (Lasix) 40 mg DAILY PO 09/10/20 09:00 09/10/20 14:40 DC 09/10/20 08:50 Furosemide (Lasix) 40 mg DAILY PO 09/12/20 09:00 09/21/20 07:14 DC 09/19/20 09:22 Furosemide (Lasix) 40 mg DAILY PO 09/24/20 09:00 10/13/20 14:33 DC 10/13/20 10:14 Furosemide (Lasix) 40 mg DAILY PO 10/14/20 09:00 10/13/20 17:19 DC Gabapentin (Neurontin) 900 mg TID PO 09/07/20 16:00 10/19/20 09:54 Glucagon (Glucagon) 1 mg ASDIRECTED PRN SC SEE LABEL COMMENTS 09/07/20 14:10 Glucose (Glucose) 16 GM ASDIRECTED PRN PO SEE LABEL COMMENTS 09/07/20 14:10 Heparin Sodium (Heparin (Flush)) 200 units ASDIRECTED PRN IV SEE LABEL COMMENTS 09/10/20 13:20 09/21/20 15:43 DC 09/19/20 20:42 Heparin Sodium (Heparin (Flush)) 200 units ASDIRECTED PRN IV SEE LABEL COMMENTS 09/21/20 16:00 09/28/20 11:57 DC 09/27/20 09:37 Heparin Sodium (Heparin (Flush)) 200 units ASDIRECTED PRN IV SEE LABEL COMMENTS 10/02/20 19:00 10/19/20 01:14 Heparin Sodium (Heparin (Flush)) 200 units PICC IV 09/10/20 18:00 09/21/20 15:43 DC 09/21/20 05:51 Heparin Sodium (Heparin (Flush)) 200 units PICC IV 09/21/20 18:00 09/28/20 11:57 DC 09/28/20 05:40 Heparin Sodium (Heparin (Flush)) 200 units PICC IV 10/03/20 06:00 10/19/20 05:09 Home Med (Med Rec Complete!) ASDIRECTED XX 09/07/20 13:00 09/07/20 13:00 DC Hydrocortisone (Hydrocortisone 1% Cream) APPLY TO RASH ON CHEST ... BIDP PRN TOP itchy rash 10/04/20 09:40 10/07/20 11:20 Hydromorphone HCl (Dilaudid) 0.2 mg Q5MP PRN IV PAIN LEVEL 4-7 09/20/20 17:10 09/20/20 18:10 DC Hydromorphone HCl (Dilaudid) 0.2 mg Q5MP PRN IV PAIN LEVEL 4-7 09/20/20 17:45 09/20/20 18:45 DC Hydroxyzine HCl (Atarax) 25 mg TID PRN PO ANXIETY 09/07/20 13:55 10/12/20 22:07 Ibuprofen (Advil) 600 mg Q8HP PRN PO MILD PAIN (PS 1-4) 10/12/20 05:05 10/17/20 18:18 DC 10/17/20 16:50 Insulin Human Lispro (HumaLOG INSULIN) SEE PROTOCOL TABLE AC SC 09/07/20 17:30 10/19/20 13:30 Insulin Human Lispro (HumaLOG INSULIN) SEE PROTOCOL TABLE QHS SC 09/07/20 21:00 10/10/20 21:00 Ketorolac Tromethamine (ToRADol) 15 mg Q6HP PRN IV pain 10/06/20 17:45 10/11/20 17:44 DC 10/11/20 06:35 Lactated Ringer's 1,000 ml @ 100 mls/hr Q10H IV 09/15/20 19:00 09/15/20 20:30 DC Lactated Ringer's 1,000 ml @ 100 mls/hr Q10H IV 09/20/20 17:10 09/20/20 18:10 DC Lactated Ringer's 1,000 ml @ 100 mls/hr Q10H IV 09/20/20 17:45 09/20/20 18:45 DC Lactulose (Cephulac) 30 ml BID PO 10/17/20 21:00 10/18/20 12:57 DC 10/18/20 09:12 Lactulose (Cephulac) 30 ml Q6H PO 10/18/20 12:00 10/18/20 23:40 Levothyroxine Sodium (Synthroid) 50 mcg DAILY@0600 PO 09/07/20 06:00 10/19/20 05:08 Lidocaine (Lidoderm Patch) 1 patch DAILY TD 10/05/20 09:00 10/19/20 09:53 Magnesium Hydroxide (Milk Of Magnesia) 30 ml BID PO 10/06/20 21:00 10/19/20 09:00 Magnesium Hydroxide (Milk Of Magnesia) 30 ml DAILYPRN PRN PO CONSTIPATION 10/05/20 11:35 10/06/20 13:41 DC 10/06/20 08:24 Meloxicam (Mobic) 7.5 mg DAILY PO 09/07/20 09:00 09/09/20 15:16 DC 09/09/20 10:15 Methocarbamol (Robaxin) 500 mg Q6HP PRN PO spasms 09/23/20 08:00 09/24/20 07:29 DC Methocarbamol (Robaxin) 500 mg QID PRN PO MUSCLE SPASMS 09/07/20 13:55 09/22/20 15:18 DC 09/17/20 18:33 Metoclopramide HCl (REGLAN INJection) 10 mg Q6HP PRN IV REFRACTORY NAUSEA 10/18/20 16:25 10/19/20 13:59 Metoclopramide HCl (Reglan) 5 mg BID PO 09/07/20 09:00 10/18/20 16:24 DC 10/18/20 09:12 Midazolam HCl (Versed) 1 mg ASDIRECTED PRN IV Q5 MIN ..MAY REPEAT X1 09/15/20 19:30 09/15/20 20:15 DC 09/15/20 19:33 Miscellaneous (Unresolved Clarification Entry) SEE LABEL COMMENTS DAILY XX 10/07/20 09:00 10/07/20 16:31 DC 10/07/20 09:00 Non-Formulary Medication ( See Comment Field Below ) REMOVE LIDODERM PATCH DAILY@ XX 10/05/20 21:00 10/16/20 21:00 Nystatin (Mycostatin Powder, Nystop) Apply to groin, abdomi... BID TOP 09/23/20 09:00 10/19/20 09:53 Ondansetron HCl (ZOFRAN INJection) 4 mg Q4HP PRN IV NAUSEA OR VOMITING 09/15/20 19:00 09/15/20 20:30 DC Ondansetron HCl (ZOFRAN INJection) 4 mg Q4HP PRN IV NAUSEA OR VOMITING 09/20/20 17:10 09/20/20 18:10 DC Ondansetron HCl (ZOFRAN INJection) 4 mg Q4HP PRN IV NAUSEA OR VOMITING 09/20/20 17:45 09/20/20 18:45 DC Ondansetron HCl (ZOFRAN INJection) 4 mg Q4HP PRN IV NAUSEA OR VOMITING 10/11/20 10:40 10/19/20 10:17 Ondansetron HCl (ZOFRAN INJection) 4 mg Q6HP PRN IV NAUSEA OR VOMITING 09/07/20 14:10 09/28/20 11:57 DC 09/25/20 17:09 Ondansetron HCl (Zofran Odt) 4 mg DAILY PO 09/08/20 09:00 09/07/20 14:10 DC Ondansetron HCl (Zofran Odt) 4 mg Q6HP PRN PO NAUSEA OR VOMITING 09/28/20 11:55 10/11/20 10:37 DC 10/05/20 11:15 Oxybutynin Chloride (Ditropan Xl) 5 mg DAILY PO 10/03/20 15:10 10/04/20 11:02 DC 10/04/20 08:32 Oxybutynin Chloride (Ditropan Xl) 10 mg DAILY PO 09/09/20 17:55 09/14/20 08:48 DC 09/14/20 08:45 Oxycodone HCl (Roxicodone, Oxyir) 5 mg ASDIRECTED PRN PO PAIN LEVEL 1-4 09/15/20 19:00 09/15/20 20:30 DC Oxycodone HCl (Roxicodone, Oxyir) 5 mg ASDIRECTED PRN PO PAIN LEVEL 1-4 09/20/20 17:10 09/20/20 18:10 DC 09/20/20 17:18 Oxycodone HCl (Roxicodone, Oxyir) 5 mg ASDIRECTED PRN PO PAIN LEVEL 1-4 09/20/20 17:45 09/20/20 18:45 DC Oxycodone HCl (Roxicodone, Oxyir) 5 mg Q6HP PRN PO PAIN 10/12/20 15:40 10/19/20 14:15 DC 10/19/20 09:54 Oxycodone HCl (Roxicodone, Oxyir) 10 mg Q6HP PRN PO PAIN 10/19/20 14:15 Pantoprazole Sodium (Protonix) 40 mg DAILY PO 10/11/20 09:25 10/19/20 09:55 Piperacillin Sod/ Tazobactam Sod 3.375 gm/Dextrose 50 ml @ 50 mls/hr Q6H IV 09/10/20 14:00 09/12/20 11:09 DC 09/12/20 08:25 Piperacillin Sod/ Tazobactam Sod 3.375 gm/Dextrose 50 ml @ 50 mls/hr Q6H IV 09/07/20 16:00 09/10/20 13:24 DC 09/09/20 16:21 Piperacillin Sod/ Tazobactam Sod 3.375 gm/Dextrose 50 ml @ 50 mls/hr Q6H IV 10/01/20 22:00 10/19/20 09:53 Polyethylene Glycol (Miralax) 1 pkt BID PO 10/06/20 21:00 10/12/20 15:52 DC 10/09/20 21:24 Polyethylene Glycol (Miralax) 1 pkt DAILY PO 10/02/20 21:50 10/06/20 13:41 DC 10/06/20 08:07 Polyethylene Glycol (Miralax) 1 pkt DAILY PRN PO CONSTIPATION 09/07/20 13:55 10/02/20 21:50 DC 10/02/20 09:24 Potassium Chloride (Micro-K Extencaps) 30 meq Q4H PO 09/09/20 09:00 09/09/20 13:01 DC 09/09/20 13:45 Senna (Senokot) 1 tab QHS PO 09/07/20 21:00 10/02/20 21:50 DC 10/02/20 20:41 Senna/Docusate Sodium (Senokot S) 2 tab QHS PO 10/03/20 21:00 10/18/20 20:50 Sodium Hypochlorite (Dakin'S Solution) remove wound vac, pl... DAILYPRN PRN TOP WOUND CARE 10/01/20 17:30 10/02/20 19:56 DC 10/01/20 20:16 Sodium Chloride 1,000 ml @ 85 mls/hr [id number] IV 09/10/20 14:40 09/11/20 09:38 DC 09/11/20 03:50 Sodium Chloride 1,000 ml @ 100 mls/hr Q10H IV 09/07/20 13:55 09/08/20 11:08 DC 09/08/20 05:36 Sodium Chloride ([place] Nasal [place]) 2 spray Q2HP PRN NA NASAL DRYNESS 09/18/20 11:20 Sodium Chloride (Saline Lock Flush) 10 ml ASDIRECTED PRN IV SEE LABEL COMMENTS 09/10/20 13:20 09/21/20 15:43 DC 09/19/20 20:43 Sodium Chloride (Saline Lock Flush) 10 ml ASDIRECTED PRN IV SEE LABEL COMMENTS 09/21/20 16:00 09/28/20 11:57 DC 09/27/20 09:37 Sodium Chloride (Saline Lock Flush) 10 ml ASDIRECTED PRN IV SEE LABEL COMMENTS 10/02/20 19:00 10/19/20 01:14 Sodium Chloride (Saline Lock Flush) 10 ml PICC IV 09/10/20 18:00 09/21/20 15:43 DC 09/21/20 05:52 Sodium Chloride (Saline Lock Flush) 10 ml PICC IV 09/21/20 18:00 09/28/20 11:57 DC 09/28/20 05:41 Sodium Chloride (Saline Lock Flush) 10 ml PICC IV 10/03/20 06:00 10/19/20 05:09 Solifenacin (Vesicare) 5 mg DAILY PO 10/05/20 09:00 10/05/20 11:40 DC 10/05/20 08:50 Solifenacin (Vesicare) 10 mg DAILY PO 09/15/20 09:00 09/20/20 18:00 DC 09/20/20 09:18 Solifenacin (Vesicare) 10 mg DAILY PO 10/06/20 09:00 10/19/20 09:54 Tizanidine HCl (Zanaflex) 4 mg BIDP PRN PO spasms 09/24/20 07:30 10/03/20 15:49 DC 10/03/20 08:33 Tizanidine HCl (Zanaflex) 4 mg Q8HP PRN PO SPASMS 09/22/20 09:00 09/22/20 15:18 DC 09/22/20 10:41 Tizanidine HCl (Zanaflex) 4 mg QHS PO 09/23/20 21:00 09/24/20 07:29 DC 09/23/20 21:05 Tizanidine HCl (Zanaflex) 4 mg QHS PRN PO MUSCLE SPASMS 09/07/20 13:55 09/22/20 08:15 DC 09/21/20 20:34 Vancomycin HCl 750 mg/IV Miscellaneous Supplies 1 each/ Sodium Chloride 275 ml @ 275 mls/hr Q12H IV 09/11/20 04:00 09/11/20 15:39 DC 09/11/20 03:48 Vancomycin HCl 1000 mg/IV Miscellaneous Supplies 1 each/ Sodium Chloride 270 ml @ 270 mls/hr Q12H IV 09/08/20 10:25 09/08/20 11:05 DC Vancomycin HCl 1000 mg/IV Miscellaneous Supplies 1 each/ Sodium Chloride 270 ml @ 270 mls/hr Q12H IV 09/09/20 00:00 09/09/20 13:43 DC 09/08/20 23:33 Vancomycin HCl 1000 mg/IV Miscellaneous Supplies 1 each/ Sodium Chloride 270 ml @ 270 mls/hr Q12H IV 09/09/20 14:00 09/10/20 15:43 DC 09/09/20 13:45 Vancomycin HCl 1000 mg/IV Miscellaneous Supplies 1 each/ Sodium Chloride 270 ml @ 270 mls/hr Q12H IV 09/11/20 16:00 09/12/20 10:32 DC 09/12/20 03:57 Allergies Coded Allergies: oxybutynin (Verified Allergy, Intermediate, rash, 10/06/20) Objective Physical Examination Examination GENERAL APPEARANCE:Patient seen, laying in bed, awake, alert, and oriented. Comfortable, in no acute distress. SKIN: Warm and moist. All wounds clean granulating tissue. No odor. Urine still periodically seeps thru the Wood cath into the wound. LUNGS: Clear to auscultation bilaterally. No wheezing appreciated. HEART: No chest wall abnormalities. Regular rate and rhythm with no murmurs appreciated. ABDOMEN: Abdomen is soft, non-tender, non-distended. EXTREMITIES: No edema identified. No calf tenderness. Generalized edema all extremities. Vital Signs Vital Signs Date Time Temp Pulse Resp B/P (MAP) Pulse Ox O2 Delivery O2 Flow Rate FiO2 10/19/20 14:00 98.5 108 20 138/70 (92) 100 Trach Collar 5.0 28 I&Os I&O- Last 24 Hours up to 6 AM 10/19/20 06:00 Intake Total 1230 ml Output Total 1550 ml Balance -320 ml Laboratory Data Labs 24H Laboratory Tests 2 10/18/20 21:02: Nucleated Red Blood Cells % (auto) 0.2H 10/18/20 21:09: Bedside Glucose (Misc Panel) 124H 10/19/20 05:58: Bedside Glucose (Misc Panel) 86 10/19/20 06:30: Nucleated Red Blood Cells % (auto) 0.2H, Immature Granulocyte % (Auto) 1.7, Neutrophils (%) (Auto) 54.5, Lymphocytes (%) (Auto) 13.1L, Monocytes (%) (Auto) 15.0H, Eosinophils (%) (Auto) 14.6H, Basophils (%) (Auto) 1.1H, Neutrophils # (Auto) 8.7H, Lymphocytes # (Auto) 2.1, Monocytes # (Auto) 2.4H, Eosinophils # (Auto) 2.3H, Basophils # (Auto) 0.2, Anion Gap 4L, Glomerular Filtration Rate > 60.0, Calcium Level 7.5L, Magnesium Level 1.7L 10/19/20 11:29: Bedside Glucose (Misc Panel) 150H 10/19/20 17:13: Bedside Glucose (Misc Panel) 144H CBC/BMP Laboratory Tests 10/18/20 21:02 10/19/20 06:30 Impression Chronic wounds sacrum, left ischium stage 4, right ischium stage 3. All wounds clean. D/c Santyl Left ischium with deep tendon visible. Clean. Improve nutrition. Air matrass Off loading. Adriano Patient is not a surgical candidate for a flap. Continue with local wound care. Findings discussed with patient and who is present for exam. Plan / VTE VTE Prophylaxis Ordered?: Yes MCKENZIE MULLEN DO October 19, 2020 17:51
--- NOTE | 2020-10-19 21:22 | REPVR ---
PROCEDURE INFORMATION: Exam: XR Left Shoulder Exam date and time: 10/19/2020 4:16 PM Age: 65 years old Clinical indication: Pain; Shoulder; Left; Additional info: Left shoulder pain TECHNIQUE: Imaging protocol: XR Left shoulder. Views: 2 or more views. COMPARISON: US DUPLEX EXT UPPER VEINS UNILATE LEFT 10/08/2020 5:24 AM FINDINGS: Bones/joints: Advanced degenerative changes at the acromioclavicular and glenohumeral joints. Periarticular spurring and joint space narrowing. No acute fracture or malalignment. Multiple healed rib fractures are noted. Changes of prior posterior spinal fusion. Soft tissues: Normal. IMPRESSION: Advanced osteoarthritis. No fracture or malalignment. Electronically signed by: Selvin Rojas On 10/19/2020 21:22:01 PM
[2020-10-19] MEDS: FERROUS GLUCONATE 324 MG TAB PO SCH (21:43)
[2020-10-19] MEDS: SENOKOT S TAB PO SCH (21:45)
[2020-10-19] MEDS: ATORVASTATIN 20 MG TAB PO SCH (21:46)
[2020-10-19] MEDS: **NOTE PATIENT COMMENT** MISC XX SCH (21:49)
[2020-10-19 22:00] VITALS: BP 140/77; O2SAT 100
[2020-10-20] MEDS: SODIUM CHLORIDE 0.9% INJ 10 ML SYR IV PRN ×2 (01:21→12:21)
[2020-10-20] MEDS: PIPERACILLIN/TAZOBACTAM SOD 3.375 GM in D5W MINI-BAG PLUS 50 ML IV SCH ×4 (04:16→22:32)
[2020-10-20] MEDS: FUROSEMIDE 40MG/4ML VIAL (J1940) IV SCH ×3 (04:17→22:33)
[2020-10-20] MEDS: LACTULOSE 20 GM/30 ML SYRUP UD PO SCH ×5 (05:54→23:51)
[2020-10-20] MEDS: SODIUM CHLORIDE 0.9% INJ 10 ML SYR IV SCH ×2 (06:01→18:25)
[2020-10-20] MEDS: LEVOTHYROXINE 50MCG TABLET (0.05MG) PO SCH (06:02)
[2020-10-20] MEDS: oxyCODONE 5MG TAB PO PRN ×3 (06:02→18:25)
[2020-10-20 06:06] VITALS: BP 139/82
[2020-10-20 06:25] LABS: BASO # 0.1 10^3/uL (0.0-0.2); BASO % 0.9 % (0.0-1.0); EOS # 2.7 10^3/uL (0.0-0.5); EOS % 18.3 % (0.0-3.0); HEMOGLOBIN 7.9 g/dl (12.0-15.5); LYMPH # 2.1 10^3/uL (1.5-5.0); LYMPH % 14.5 % (24.0-44.0); MEAN CORPUSCULAR HEMOGLOBIN 27.8 pg (27.0-33.0); MEAN CORPUSCULAR HGB CONC 31.6 g/dl (32.0-36.5); MONO # 1.9 10^3/uL (0.0-0.8); MONO % 13.2 % (2.0-8.0); NEUTROPHILS # 7.5 10^3/uL (1.5-8.5); NEUTROPHILS % 51.6 % (36.0-66.0); PLATELET COUNT, AUTOMATED 624 10^3/uL (150-450); RED BLOOD COUNT 2.84 10^6/uL (4.00-5.40)
[2020-10-20 06:35] LABS: WHITE BLOOD COUNT 14.6 10^3/uL (4.0-10.0)
[2020-10-20 06:45] LABS: BLOOD UREA NITROGEN 8 MG/DL (7-18); CALCIUM LEVEL 7.3 MG/DL (8.8-10.2); CARBON DIOXIDE LEVEL 31 MEQ/L (21-32); CHLORIDE LEVEL 104 MEQ/L (98-107); CREATININE FOR GFR 0.26 MG/DL (0.55-1.30); GLOMERULAR FILTRATION RATE > 60.0 (>45); GLUCOSE, FASTING 106 MG/DL (70-100); MAGNESIUM LEVEL 1.6 MG/DL (1.8-2.4); POTASSIUM SERUM 3.9 MEQ/L (3.5-5.1); SODIUM LEVEL 140 MEQ/L (136-145)
[2020-10-20] MEDS: HumaLOG INSULIN (NovoLOG) PER UNIT SC SCH ×4 (07:30→21:00)
[2020-10-20] MEDS ORDERED: MAGNESIUM *L&D* 4GM/100ML BAG (40MG/ML) IV ONE (08:20)
[2020-10-20 09:00] VITALS: BP 115/79; O2SAT 100
[2020-10-20] MEDS: MOM 30ML SUSPENSION UDC PO SCH ×2 (09:00→22:34)
[2020-10-20] MEDS: BACLOFEN 5MG PER 1/2 TABLET PO SCH ×3 (09:15→22:33)
[2020-10-20] MEDS: LIDOCAINE 5% (LIDODERM) PATCH TD SCH (09:16)
[2020-10-20] MEDS: SOLIFENACIN 5 MG TAB PO SCH (09:16)
[2020-10-20] MEDS: PANTOPRAZOLE 40MG TAB (PROTONIX) PO SCH (09:25)
[2020-10-20] MEDS: ACETAMINOPHEN 500 MG TAB PO SCH ×3 (09:29→22:32)
[2020-10-20] MEDS: diazePAM 2 MG TAB PO SCH ×2 (10:34→22:31)
[2020-10-20] MEDS: GABAPENTIN 300 MG CAP PO SCH ×3 (10:35→22:33)
[2020-10-20] MEDS: DIAPER RELIEF PASTE (DESITIN) 60GM TOP SCH ×2 (10:35→21:00)
[2020-10-20] MEDS: FOLIC ACID 1 MG TAB PO SCH (10:35)
[2020-10-20] MEDS: CYANOCOBALAMIN 250 MCG TABLET PO SCH (10:35)
[2020-10-20] MEDS: NYSTATIN 100,000 UNITS/GM TOPICAL PWD 15 GM TOP SCH ×2 (10:35→21:00)
--- NOTE | 2020-10-20 10:35 | IPN ---
PROGRESS NOTE DATE: 10/19/2020 SUBJECTIVE: Nadege is complaining of left shoulder pain and she has not been able to use the shoulder for about two weeks now. It has been quite swollen. She also complains of nausea and decreased appetite whenever she eats. She would like something different for the nausea. She has been getting Zofran 4 mg IV q. 4 hours. She continues to leak around her Wood catheter. She has been having some bleeding from her sacral and ischial wound and dropped her hematocrit and her hemoglobin to 5.1 and 17. OBJECTIVE: VITAL SIGNS: Temperature 98.5, pulse 108, respirations 20, blood pressure 138/70, O2 saturation 100% on 28% FiO2. HEART: Normal S1, S2. No murmurs. LUNGS: Clear. No wheezes, rales, or rhonchi. She has a trach collar. ABDOMEN: Morbidly obese, soft, and nontender with a left lower quadrant colostomy with liquid stools. SKIN: Sacral decubitus very large with granulation tissue and no evidence of infection. Left ischial pressure ulcer with exposed bone and tendon, exposed head of femur. Again, there is no purulence in that wound. Two smaller right ischial ulcerations that are clean each one measuring about 10 cm x 3 cm. There is no purulent discharge. Her skin around the sacral and ischial wounds is slightly erythematous and peeling from maceration. LABORATORY DATA: White count is 16, hemoglobin 8, hematocrit 24.9, platelets 640,000, neutrophils 54%, lymphocytes 13%, and monocytes 15%. Sodium 139, potassium 4.4, chloride 106, bicarb 29, BUN 8, creatinine 0.26, glucose 97, calcium 7.5, magnesium 1.7. IMAGING DATA: CT abdomen and pelvis done on 10/17 shows a new change of left gluteal soft tissue with extensive inflammation and a small amount of fluid with a left ischial tuberosity and ill-defined lucency consistent with osteomyelitis at that area. A 5 mm calculus in the distal left ureter without hydroureteronephrosis. IMPRESSION: 1. Large sacral decubitus with exposed femur and now with acute osteomyelitis of the left ischial tuberosity. The patient has been on intravenous (IV) Zosyn since 10/01 and will need IV antibiotics for a total of six weeks with end of therapy scheduled for 11/13. The patient needs to have her CBC, CRP, and ESR monitored once a week. 2. Chronic nausea. The patient has not responded to Zofran and has decreased appetite due to the nausea. We will try Marinol. 3. Left shoulder pain with limited range of motion. It seems to me like this is a frozen shoulder. Vascular ultrasound has been done on 10/14, which was negative for a deep vein thrombosis (DVT). Suggest obtaining x-ray of the shoulder, consult orthopedic surgery, and have physical therapy work with her with range of motion. PLAN: X-ray of the left shoulder today. Marinol per hospitalist team if going to be tried to help with nausea and pain. Encourage protein intake. Repeat CBC, CRP, and ESR on Thursday.
[2020-10-20] MEDS: SANTYL OINT 30GM TOP SCH (10:36)
[2020-10-20] MEDS: MAG SULF 1GM/100ML (MAG RUN) SINGLE DOSE IV SCH ×8 (10:37→12:00)
[2020-10-20] MEDS: ONDANSETRON 4MG/2ML VIAL IV PRN ×2 (12:20→18:26)
--- NOTE | 2020-10-20 12:58 | IPNPDOC ---
Subjective Date Seen The patient was seen on 10/20/20. Subjective Chief Complaint/HPI Nadege is complaining of pain, her nausea is better controlled today. She is afebrile and hemodynamically stable. Objective Physical Examination General Exam: Positive: Alert, No Acute Distress Eye Exam: Positive: PERRLA, Conjunctiva & lids normal; Negative: Sclera icteric ENT Exam: Positive: Mucous membr. moist/pink Chest Exam: Positive: Clear to auscultation Heart Exam: Positive: Rate Normal, Regular Rhythm Abdomen Exam: Positive: Normal bowel sounds, Soft, Other (ostomy with formed stool) Extremity Exam: Positive: Edema (bilateral pitting edema, LUE arm swelling), Swelling Neuro Exam: Negative: Normal Speech Assessment /Plan Assessment # Leaking Garcia catheter 2/2 bladder spasms. Complicated by UTI # neurogenic bladder with chronic garcia -Patient initially completed a 10 day course of antibiotic (cefepime) -Garcia changed on 09/20 -Urology consulted, recommendations reviewed -Physiatry consulted, recommendations reviewed -Patient started on oxybutynin. May have had a reaction, now on Vesicare, increased dose of vesicare to 10 mg daily - valium 1 mg BID for bladder spasms, may titrate up - does not recommend suprapubic catheter, as will will likely not resolve issue of urine leakage - I recommend against nephrostomy tubes, she is a poor candidate with her morbid obesity and large decub ulcers # Infected Sacral decubitus ulcer and bilateral ischial ulcer with acute osteomyelitis - Diverting colostomy completed 1 year ago to prevent infection of sacral decubitus ulcers - S/p debridement of sacral and bilateral ischial ulcers by Dr. Lopez on 09/13/2020 - Not a surgical candidate - D/w Dr. Lucio on 10/19, - now on zosyn (day # ) #. Pain control - Patient had been receiving Suboxone illegally. - tapered off of suboxone, rehab unable to provide - stop famotidine prn, replace with pantoprazole - Physiatry consulted, recommendation appreciated - added valium 1 mg BID for bladder spasms - will c/w baclofen 5 mg TID - due to severe pain during dressing changes gave morphine IV, oxycodone 5 mg q6h prn - palliative consult placed for pain control, and possible GOC discussion # Acute blood loss anemia 2/2 oozing from wound - discontinued lovenox and asa, will resume when hgb stable - CT abd/pelvis shows no retroperitoneal bleed - NO GI bleed noted - transfused total of 4 units prbcs on 10/17 + 10/18 #RUE DVT - on therapeutic lovenox, but stopped on 10/17 2/2 drop in hgb #nausea and vomiting - reglan IV prn - zofran prn - drabinol bid # Acute on chronic iron deficient anemia -s/p 4 units transfused -Continue with iron supplementation -Continue with monitoring CBC # Chronic lower extremity edema - DC furosemide due to patient's bladder spasms and urine leakage complicating wound care # Chronic respiratory failure with hypoxia and hypercarbia with tracheostomy -At baseline -Continue with inhalers # Chronic constipation -Patient on senna, docusate, MiraLax, milk of mag # Chronic diastolic CHF -echo repeated on 10/03/20 - EF 70-75%, Grade 1 DD, small pericardial effusion without compression, LVH #. Neuropathy with muscle spasms and chronic back pain with lumbosacral radiculopathy -Physiatry consulted, recommendations appreciated -Continue with gabapentin. -Baclofen 5 mg TID -patient has been weaned off suboxone, as difficulty in finding rehab that would administer suboxone #. Hypertension -BP is appropriate - holding lasix to reduce urine leakage # NIDDM type 2 -Continue with insulin sliding scale #. Hypothyroidism -Continue with levothyroxine # Migraine headache -Continue with acetaminophen as needed #. Dyslipidemia -Continue with atorvastatin, hold aspirin 2/2 low hgb #. GERD -Continue with pantoprazole #. Obestiy -BMI 45.9 -Complicates care #. Drug rash -improved after DC of oxybutinin - prn IV benadryl and topical hydrocortisone # DVT ppx -Lovenox stopped 2/2 drop in hgb Disposition: Awaiting palliative care consult to outline GOC and assist with pain control Plan/VTE VTE Prophylaxis Ordered?: Yes VS, I&O, 24H, Fishbone Vital Signs/I&O Vital Signs Date Time Temp Pulse Resp B/P (MAP) Pulse Ox O2 Delivery O2 Flow Rate FiO2 10/20/20 12:22 18 100 Trach Collar 5.0 28 10/20/20 06:06 97.9 94 139/82 (101) I&O- Last 24 Hours up to 6 AM 10/20/20 06:00 Intake Total 190 ml Output Total 3250 ml Balance -3060 ml Laboratory Data 24H LABS Laboratory Tests 2 10/19/20 17:13: Bedside Glucose (Misc Panel) 144H 10/19/20 20:47: Bedside Glucose (Misc Panel) 162H 10/20/20 05:16: Bedside Glucose (Misc Panel) 87 10/20/20 06:00: Immature Granulocyte % (Auto) 1.5, Neutrophils (%) (Auto) 51.6, Lymphocytes (%) (Auto) 14.5L, Monocytes (%) (Auto) 13.2H, Eosinophils (%) (Auto) 18.3H, Bas ophils (%) (Auto) 0.9, Neutrophils # (Auto) 7.5, Lymphocytes # (Auto) 2.1, Monocytes # (Auto) 1.9H, Eosinophils # (Auto) 2.7H, Basophils # (Auto) 0.1, Nucleated Red Blood Cells % (auto) 0.0, Anion Gap 5L, Glomerular Filtration Rate > 60.0, Calcium Level 7.3L, Magnesium Level 1.6L 10/20/20 11:37: Bedside Glucose (Misc Panel) 119H CBC/BMP Laboratory Tests 10/20/20 06:00 CECELIA ORTEGA MD October 20, 2020 12:58
[2020-10-20 14:00] VITALS: BP 152/83
[2020-10-20] MEDS: DRONABINOL 2.5 MG CAP (MARINOL) PO SCH (18:24)
[2020-10-20] MEDS: hydrOXYzine 25 MG TAB PO PRN (18:24)
[2020-10-20] MEDS: **NOTE PATIENT COMMENT** MISC XX SCH (21:00)
[2020-10-20 22:00] VITALS: BP 136/74
[2020-10-20 22:30] VITALS: O2SAT 100
[2020-10-20] MEDS: METOCLOPRAMIDE INJ 10MG/2ML VIAL (J2765 PER 1) IV PRN (22:30)
[2020-10-20] MEDS: SENOKOT S TAB PO SCH (22:31)
[2020-10-20] MEDS: FERROUS GLUCONATE 324 MG TAB PO SCH (22:32)
[2020-10-20] MEDS: ATORVASTATIN 20 MG TAB PO SCH (22:33)
[2020-10-21] MEDS: SODIUM CHLORIDE 0.9% INJ 10 ML SYR IV PRN ×4 (00:07→15:51)
[2020-10-21] MEDS: FUROSEMIDE 40MG/4ML VIAL (J1940) IV SCH ×3 (04:05→22:58)
[2020-10-21] MEDS: PIPERACILLIN/TAZOBACTAM SOD 3.375 GM in D5W MINI-BAG PLUS 50 ML IV SCH ×4 (04:05→22:58)
[2020-10-21 06:00] VITALS: BP 114/71
[2020-10-21] MEDS: LACTULOSE 20 GM/30 ML SYRUP UD PO SCH ×3 (06:12→18:11)
[2020-10-21] MEDS: SODIUM CHLORIDE 0.9% INJ 10 ML SYR IV SCH ×2 (06:12→17:57)
[2020-10-21] MEDS: LEVOTHYROXINE 50MCG TABLET (0.05MG) PO SCH (06:12)
[2020-10-21 06:39] LABS: BASO # 0.1 10^3/uL (0.0-0.2); BASO % 1.1 % (0.0-1.0); EOS # 2.8 10^3/uL (0.0-0.5); HEMATOCRIT 24.2 % (36.0-47.0); HEMOGLOBIN 7.5 g/dl (12.0-15.5); LYMPH # 1.9 10^3/uL (1.5-5.0); LYMPH % 14.8 % (24.0-44.0); MEAN CORPUSCULAR HEMOGLOBIN 27.7 pg (27.0-33.0); MEAN CORPUSCULAR VOLUME 89.3 fl (80.0-96.0); MONO # 1.5 10^3/uL (0.0-0.8); MONO % 11.8 % (2.0-8.0); NEUTROPHILS # 6.2 10^3/uL (1.5-8.5); PLATELET COUNT, AUTOMATED 579 10^3/uL (150-450); RED BLOOD COUNT 2.71 10^6/uL (4.00-5.40)
[2020-10-21 07:07] LABS: BLOOD UREA NITROGEN 9 MG/DL (7-18); CALCIUM LEVEL 6.9 MG/DL (8.8-10.2); CARBON DIOXIDE LEVEL 34 MEQ/L (21-32); CHLORIDE LEVEL 102 MEQ/L (98-107); CREATININE FOR GFR 0.42 MG/DL (0.55-1.30); GLOMERULAR FILTRATION RATE > 60.0 (>45); GLUCOSE, FASTING 98 MG/DL (70-100); MAGNESIUM LEVEL 1.9 MG/DL (1.8-2.4); POTASSIUM SERUM 3.7 MEQ/L (3.5-5.1); SODIUM LEVEL 140 MEQ/L (136-145)
[2020-10-21 07:17] LABS: EOS % 22.3 % (0.0-3.0); WHITE BLOOD COUNT 12.7 10^3/uL (4.0-10.0)
[2020-10-21] MEDS: HumaLOG INSULIN (NovoLOG) PER UNIT SC SCH ×4 (07:30→21:00)
[2020-10-21] MEDS: MOM 30ML SUSPENSION UDC PO SCH ×3 (09:00→21:00)
[2020-10-21] MEDS: ONDANSETRON 4MG/2ML VIAL IV PRN ×2 (09:24→15:51)
[2020-10-21] MEDS: LIDOCAINE 5% (LIDODERM) PATCH TD SCH (09:24)
[2020-10-21] MEDS: SOLIFENACIN 5 MG TAB PO SCH (09:25)
[2020-10-21] MEDS: NYSTATIN 100,000 UNITS/GM TOPICAL PWD 15 GM TOP SCH (09:25)
[2020-10-21] MEDS: DIAPER RELIEF PASTE (DESITIN) 60GM TOP SCH (09:26)
[2020-10-21] MEDS: SANTYL OINT 30GM TOP SCH (09:26)
[2020-10-21] MEDS: oxyCODONE 5MG TAB PO PRN ×3 (09:27→23:02)
[2020-10-21] MEDS: POTASSIUM CHLORIDE 10MEQ SR TABLET PO SCH ×2 (09:27→23:00)
[2020-10-21] MEDS: BACLOFEN 5MG PER 1/2 TABLET PO SCH ×3 (09:27→22:59)
[2020-10-21] MEDS: PANTOPRAZOLE 40MG TAB (PROTONIX) PO SCH (09:28)
[2020-10-21] MEDS: FOLIC ACID 1 MG TAB PO SCH (09:28)
[2020-10-21] MEDS: ACETAMINOPHEN 500 MG TAB PO SCH ×3 (09:28→22:59)
[2020-10-21] MEDS: diazePAM 2 MG TAB PO SCH ×2 (09:28→23:01)
[2020-10-21] MEDS: GABAPENTIN 300 MG CAP PO SCH ×3 (09:28→23:00)
[2020-10-21] MEDS: CYANOCOBALAMIN 250 MCG TABLET PO SCH (09:33)
--- NOTE | 2020-10-21 09:41 | IPNPDOC ---
Subjective Date Seen The patient was seen on 10/21/20. Subjective Chief Complaint/HPI Nadege continues to complain of pain, she denies any worsening breathing. Her ostomy output is now loose set of solid. She is afebrile. Objective Physical Examination General Exam: Positive: Alert, No Acute Distress Eye Exam: Positive: PERRLA, Conjunctiva & lids normal; Negative: Sclera icteric ENT Exam: Positive: Mucous membr. moist/pink Chest Exam: Positive: Clear to auscultation Heart Exam: Positive: Rate Normal, Regular Rhythm Abdomen Exam: Positive: Normal bowel sounds, Soft, Other (ostomy with formed stool) Extremity Exam: Positive: Edema (bilateral pitting edema, LUE arm swelling has decreased), Swelling Neuro Exam: Negative: Normal Speech Assessment /Plan Assessment # Leaking Garcia catheter 2/2 bladder spasms. Complicated by UTI # neurogenic bladder with chronic garcia -Patient initially completed a 10 day course of antibiotic (cefepime) -Garcia changed on 09/20 -Urology consulted, recommendations reviewed -Physiatry consulted, recommendations reviewed -Patient started on oxybutynin. May have had a reaction, now on Vesicare, increased dose of vesicare to 10 mg daily - valium 1 mg BID for bladder spasms, may titrate up - does not recommend suprapubic catheter, as will will likely not resolve issue of urine leakage - I recommend against nephrostomy tubes, she is a poor candidate with her morbid obesity and large decub ulcers # Infected Sacral decubitus ulcer and bilateral ischial ulcer with acute osteomyelitis noted on CT abd/pelvis - Diverting colostomy completed 1 year ago to prevent infection of sacral decubitus ulcers - S/p debridement of sacral and bilateral ischial ulcers by Dr. Lopez on 09/13/2020 - Not a surgical candidate - D/w Dr. Lucio on 10/19, - now on zosyn (day # ) #. Pain control - Patient had been receiving Suboxone illegally. - tapered off of suboxone, rehab unable to provide - stop famotidine prn, replace with pantoprazole - Physiatry consulted, recommendation appreciated - added valium 1 mg BID for bladder spasms - will c/w baclofen 5 mg TID - increased oxycodone 10 mg q6h prn - palliative consult placed for pain control, and possible GOC discussion # Acute blood loss anemia 2/2 oozing from large sacral decubiti wounds - discontinued lovenox and asa, will resume when hgb stable - CT abd/pelvis shows no retroperitoneal bleed - NO GI bleed noted - transfused total of 4 units prbcs on 10/17 + 10/18 #RUE DVT - on therapeutic lovenox, but stopped on 10/17 2/2 drop in hgb #nausea and vomiting - reglan IV prn - zofran prn - dronabinol bid # Acute on chronic iron deficient anemia -s/p 4 units transfused -Continue with iron supplementation -Continue with monitoring CBC # Chronic lower extremity edema - DC furosemide due to patient's bladder spasms and urine leakage complicating wound care # Chronic respiratory failure with hypoxia and hypercarbia with tracheostomy -At baseline -Continue with inhalers # Chronic constipation -Patient on senna, docusate, MiraLax, milk of mag, lactulose - improved # Chronic diastolic CHF -echo repeated on 10/03/20 - EF 70-75%, Grade 1 DD, small pericardial effusion without compression, LVH #. Neuropathy with muscle spasms and chronic back pain with lumbosacral radiculopathy -Physiatry consulted, recommendations appreciated -Continue with gabapentin. -Baclofen 5 mg TID -patient has been weaned off suboxone, as difficulty in finding rehab that would administer suboxone #. Hypertension -BP is appropriate # NIDDM type 2 -Continue with insulin sliding scale #. Hypothyroidism -Continue with levothyroxine # Migraine headache -Continue with acetaminophen as needed #. Dyslipidemia -Continue with atorvastatin, hold aspirin 2/2 low hgb #. GERD -Continue with pantoprazole #. Obestiy -BMI 45.9 -Complicates care #. Drug rash -improved after DC of oxybutinin - prn IV benadryl and topical hydrocortisone # DVT ppx -Lovenox stopped 2/2 drop in hgb Disposition: Awaiting palliative care consult to outline GOC and assist with pain control Plan/VTE VTE Prophylaxis Ordered?: Yes VS, I&O, 24H, Fishbone Vital Signs/I&O Vital Signs Date Time Temp Pulse Resp B/P (MAP) Pulse Ox O2 Delivery O2 Flow Rate FiO2 10/21/20 09:27 18 10/21/20 06:00 97.8 85 114/71 (85) 100 Trach Collar 5.0 28 I&O- Last 24 Hours up to 6 AM 10/21/20 06:00 Intake Total 1900 ml Output Total 2730 ml Balance -830 ml Laboratory Data 24H LABS Laboratory Tests 2 10/20/20 11:37: Bedside Glucose (Misc Panel) 119H 10/20/20 16:52: Bedside Glucose (Misc Panel) 126H 10/20/20 20:08: Bedside Glucose (Misc Panel) 136H 10/21/20 06:11: Immature Granulocyte % (Auto) 1.0, Neutrophils (%) (Auto) 49.0, Lymphocytes (%) (Auto) 14.8L, Monocytes (%) (Auto) 11.8H, Eosinophils (%) (Auto) 22.3H, Basophils (%) (Auto) 1.1H, Neutrophils # (Auto) 6.2, Lymphocytes # (Auto) 1.9, Monocytes # (Auto) 1.5H, Eosinophils # (Auto) 2.8H, Basophils # (Auto) 0.1, Nucleated Red Blood Cells % (auto) 0.0, Anion Gap 4L, Glomerular Filtration Rate > 60.0, Calcium Level 6.9L, Magnesium Level 1.9 CBC/BMP Laboratory Tests 10/21/20 06:11 CECELIA ORTEGA MD October 21, 2020 09:41
[2020-10-21 11:13] VITALS: O2SAT 97
[2020-10-21] MEDS: METOCLOPRAMIDE INJ 10MG/2ML VIAL (J2765 PER 1) IV PRN ×2 (13:09→23:02)
[2020-10-21] MEDS: hydrOXYzine 25 MG TAB PO PRN (13:10)
[2020-10-21] MEDS: DRONABINOL 2.5 MG CAP (MARINOL) PO SCH ×2 (13:10→18:12)
[2020-10-21 14:00] VITALS: BP 113/64
[2020-10-21] MEDS: **NOTE PATIENT COMMENT** MISC XX SCH (21:00)
[2020-10-21 22:00] VITALS: BP 113/74
[2020-10-21] MEDS: FERROUS GLUCONATE 324 MG TAB PO SCH (22:59)
[2020-10-21] MEDS: ATORVASTATIN 20 MG TAB PO SCH (22:59)
[2020-10-21] MEDS: SENOKOT S TAB PO SCH (22:59)
[2020-10-22] MEDS: DIAPER RELIEF PASTE (DESITIN) 60GM TOP SCH ×2 (01:22→10:28)
[2020-10-22] MEDS: NYSTATIN 100,000 UNITS/GM TOPICAL PWD 15 GM TOP SCH ×2 (01:22→10:27)
[2020-10-22] MEDS: PIPERACILLIN/TAZOBACTAM SOD 3.375 GM in D5W MINI-BAG PLUS 50 ML IV SCH ×3 (05:26→16:26)
[2020-10-22 06:00] VITALS: BP 116/74
[2020-10-22] MEDS: SODIUM CHLORIDE 0.9% INJ 10 ML SYR IV SCH ×2 (06:19→18:40)
[2020-10-22] MEDS: FUROSEMIDE 40MG/4ML VIAL (J1940) IV SCH ×2 (06:19→13:53)
[2020-10-22] MEDS: LACTULOSE 20 GM/30 ML SYRUP UD PO SCH ×4 (06:19→18:39)
[2020-10-22] MEDS: LEVOTHYROXINE 50MCG TABLET (0.05MG) PO SCH (06:19)
[2020-10-22 06:51] LABS: BASO # 0.1 10^3/uL (0.0-0.2); BASO % 0.7 % (0.0-1.0); EOS # 2.6 10^3/uL (0.0-0.5); HEMATOCRIT 23.2 % (36.0-47.0); HEMOGLOBIN 7.2 g/dl (12.0-15.5); LYMPH # 2.2 10^3/uL (1.5-5.0); LYMPH % 15.5 % (24.0-44.0); MEAN CORPUSCULAR HEMOGLOBIN 28.2 pg (27.0-33.0); MONO # 1.7 10^3/uL (0.0-0.8); MONO % 11.8 % (2.0-8.0); NEUTROPHILS # 7.6 10^3/uL (1.5-8.5); PLATELET COUNT, AUTOMATED 584 10^3/uL (150-450); RED BLOOD COUNT 2.55 10^6/uL (4.00-5.40)
[2020-10-22 06:54] LABS: WHITE BLOOD COUNT 14.4 10^3/uL (4.0-10.0)
[2020-10-22 07:14] LABS: BLOOD UREA NITROGEN 11 MG/DL (7-18); C REACTIVE PROTEIN QUANTITATIV 8.25 MG/DL (0.00-0.30); CALCIUM LEVEL 6.8 MG/DL (8.8-10.2); CARBON DIOXIDE LEVEL 33 MEQ/L (21-32); CHLORIDE LEVEL 104 MEQ/L (98-107); CREATININE FOR GFR 0.32 MG/DL (0.55-1.30); GLOMERULAR FILTRATION RATE > 60.0 (>45); GLUCOSE, FASTING 96 MG/DL (70-100); MAGNESIUM LEVEL 1.6 MG/DL (1.8-2.4); POTASSIUM SERUM 4.2 MEQ/L (3.5-5.1); SODIUM LEVEL 140 MEQ/L (136-145)
[2020-10-22 07:15] LABS: ERYTHROCYTE SEDIMENTATION RATE 107 mm/hr (0-30)
[2020-10-22] MEDS ORDERED: NS 1,000 ML IV SCH (07:35)
[2020-10-22] MEDS: HumaLOG INSULIN (NovoLOG) PER UNIT SC SCH ×4 (08:36→20:54)
[2020-10-22] MEDS: diazePAM 2 MG TAB PO SCH (10:24)
[2020-10-22] MEDS: MOM 30ML SUSPENSION UDC PO SCH ×2 (10:24→21:00)
[2020-10-22] MEDS: FOLIC ACID 1 MG TAB PO SCH (10:24)
[2020-10-22] MEDS: GABAPENTIN 300 MG CAP PO SCH ×2 (10:24→16:25)
[2020-10-22] MEDS: POTASSIUM CHLORIDE 10MEQ SR TABLET PO SCH (10:25)
[2020-10-22] MEDS: ACETAMINOPHEN 500 MG TAB PO SCH ×2 (10:25→16:25)
[2020-10-22] MEDS: SOLIFENACIN 5 MG TAB PO SCH (10:25)
[2020-10-22] MEDS: BACLOFEN 5MG PER 1/2 TABLET PO SCH ×2 (10:25→16:25)
[2020-10-22] MEDS: PANTOPRAZOLE 40MG TAB (PROTONIX) PO SCH (10:25)
[2020-10-22] MEDS: MAGNESIUM OXIDE 400MG TAB (MAG-OX) PO SCH (10:26)
[2020-10-22] MEDS: CYANOCOBALAMIN 250 MCG TABLET PO SCH (10:26)
[2020-10-22] MEDS: oxyCODONE 5MG TAB PO PRN (10:27)
[2020-10-22] MEDS: LIDOCAINE 5% (LIDODERM) PATCH TD SCH (10:29)
[2020-10-22] MEDS: MAG SULF 1GM/100ML (MAG RUN) 1 GM in IV 1 EA IV SCH ×2 (10:29→11:59)
--- NOTE | 2020-10-22 11:01 | IPNPDOC ---
Subjective Date Seen The patient was seen on 10/22/20. Subjective Chief Complaint/HPI Nadege reports that her pain is controlled today. Her hemoglobin levels are down but she denies having any lightheadedness increased shortness of breath nor chest discomfort. She does have some new area of bruising on her left medial thigh. Her up extremity swallowing has decreased with the reintroduction of IV Lasix. She is no longer constipated following the addition of lactulose. She is tolerating the dronabinol with improvement in her appetite. Objective Physical Examination General Exam: Positive: Alert, No Acute Distress Eye Exam: Positive: Conjunctiva & lids normal; Negative: Sclera icteric ENT Exam: Positive: Mucous membr. moist/pink Chest Exam: Positive: Clear to auscultation Heart Exam: Positive: Rate Normal, Regular Rhythm Abdomen Exam: Positive: Normal bowel sounds, Soft, Other (ostomy loose stool) Extremity Exam: Positive: Edema (bilateral pitting edema, anasarca is improving), Swelling Skin Exam: Positive: Other skin issue (she has area of ecchymosis of the left medial thigh area towards her groin) Neuro Exam: Negative: Normal Speech Assessment /Plan Assessment # Leaking Garcia catheter 2/2 bladder spasms. Complicated by UTI # neurogenic bladder with chronic garcia -Patient initially completed a 10 day course of antibiotic (cefepime) -Garcia changed on 09/20 -Urology consulted, recommendations reviewed -Physiatry consulted, recommendations reviewed -Patient started on oxybutynin. May have had a reaction, now on Vesicare, increased dose of vesicare to 10 mg daily - valium 1 mg BID for bladder spasms, may titrate up - does not recommend suprapubic catheter, as will will likely not resolve issue of urine leakage - I recommend against nephrostomy tubes, she is a poor candidate with her morbid obesity and large decub ulcers and is at risk for infection and other complications if placed. # Infected Sacral decubitus ulcer and bilateral ischial ulcer with acute osteomyelitis noted on CT abd/pelvis - Diverting colostomy completed 1 year ago to prevent infection of sacral decubitus ulcers - S/p debridement of sacral and bilateral ischial ulcers by Dr. Lopez on 09/13/2020 - Not a surgical candidate for flap - D/w Dr. Lucio on 10/19, - now on zosyn (day # ) #. Pain control - Patient had been receiving Suboxone illegally. - tapered off of suboxone, rehab unable to provide - stop famotidine prn, replace with pantoprazole - Physiatry consulted, recommendation appreciated - added valium 1 mg BID for bladder spasms - will c/w baclofen 5 mg TID - increased oxycodone 10 mg q6h prn - palliative consult placed for pain control, and possible GOC discussion # Acute blood loss anemia 2/2 oozing from large sacral decubiti wounds and possibly left thigh hematoma - discontinued lovenox and asa, will resume when hgb stable - CT abd/pelvis shows no retroperitoneal bleed - NO GI bleed noted - transfused total of 4 units prbcs on 10/17 + 10/18 I've ordered 1 unit of packed red blood cells to be transfused this morning on 10/22, repeat CBC is ordered for the afternoon -I will continue to hold her therapeutic Lovenox secondary to ongoing bleeding. #RUE DVT - on therapeutic lovenox, but stopped on 10/17 2/2 drop in hgb #nausea and vomiting - reglan IV prn - zofran prn - dronabinol bid # Acute on chronic iron deficient anemia -s/p 4 units transfused -Continue with iron supplementation -Continue with monitoring CBC # Chronic lower extremity edema - DC furosemide due to patient's bladder spasms and urine leakage complicating wound care # Chronic respiratory failure with hypoxia and hypercarbia with tracheostomy -At baseline -Continue with inhalers # Chronic constipation -Patient on senna, docusate, MiraLax, milk of mag, lactulose - improved # Chronic diastolic CHF -echo repeated on 10/03/20 - EF 70-75%, Grade 1 DD, small pericardial effusion without compression, LVH #. Neuropathy with muscle spasms and chronic back pain with lumbosacral radiculopathy -Physiatry consulted, recommendations appreciated -Continue with gabapentin. -Baclofen 5 mg TID -patient has been weaned off suboxone, as difficulty in finding rehab that would administer suboxone #. Hypertension -BP is appropriate # NIDDM type 2 -Continue with insulin sliding scale #. Hypothyroidism -Continue with levothyroxine # Migraine headache -Continue with acetaminophen as needed #. Dyslipidemia -Continue with atorvastatin, hold aspirin 2/2 low hgb #. GERD -Continue with pantoprazole #. Obestiy -BMI 45.9 -Complicates care #. Drug rash -improved after DC of oxybutinin - prn IV benadryl and topical hydrocortisone # DVT ppx -Lovenox stopped 2/2 drop in hgb Disposition: Awaiting palliative care consult to outline GOC and assist with pain control Plan/VTE VTE Prophylaxis Ordered?: Yes VS, I&O, 24H, Fishbone Vital Signs/I&O Vital Signs Date Time Temp Pulse Resp B/P (MAP) Pulse Ox O2 Delivery O2 Flow Rate FiO2 10/22/20 10:27 20 10/22/20 06:00 98.8 102 116/74 (88) 99 Trach Collar 5.0 28 I&O- Last 24 Hours up to 6 AM 10/22/20 06:00 Intake Total 1390 ml Output Total 3050 ml Balance -1660 ml Laboratory Data 24H LABS Laboratory Tests 2 10/21/20 11:47: Bedside Glucose (Misc Panel) 144H 10/21/20 16:36: Bedside Glucose (Misc Panel) 146H 10/21/20 20:42: Bedside Glucose (Misc Panel) 162H 10/22/20 06:17: Immature Granulocyte % (Auto) 1.0, Neutrophils (%) (Auto) 53.0, Lymphocytes (%) (Auto) 15.5L, Monocytes (%) (Auto) 11.8H, Eosinophils (%) (Auto) 18.0H, Basophils (%) (Auto) 0.7, Neutrophils # (Auto) 7.6, Lymphocytes # (Auto) 2.2, Monocytes # (Auto) 1.7H, Eosinophils # (Auto) 2.6H, Basophils # (Auto) 0.1, Nucleated Red Blood Cells % (auto) 0.0, Erythrocyte Sedimentation Rate 107H, Anion Gap 3L, Glomerular Filtration Rate > 60.0, Calcium Level 6.8L, Magnesium Level 1.6L, C-Reactive Protein, Quantitative 8.25H CBC/BMP Laboratory Tests 10/22/20 06:17 CECELIA ORTEGA MD October 22, 2020 11:01
[2020-10-22] MEDS: SANTYL OINT 30GM TOP SCH (11:38)
[2020-10-22] MEDS: ONDANSETRON 4MG/2ML VIAL IV PRN (11:59)
[2020-10-22] MEDS: DRONABINOL 2.5 MG CAP (MARINOL) PO SCH ×2 (11:59→18:39)
[2020-10-22] MEDS: METOCLOPRAMIDE INJ 10MG/2ML VIAL (J2765 PER 1) IV PRN ×2 (12:00→13:53)
[2020-10-22 14:00] VITALS: BP 124/83
[2020-10-22 16:23] VITALS: BP 129/83
[2020-10-22 16:38] VITALS: BP 126/82
[2020-10-22 17:30] VITALS: BP 126/84
[2020-10-22] MEDS: **NOTE PATIENT COMMENT** MISC XX SCH (21:00)
[2020-10-22 22:00] VITALS: BP 117/78
[2020-10-23] MEDS: FERROUS GLUCONATE 324 MG TAB PO SCH ×2 (00:08→23:11)
[2020-10-23] MEDS: ATORVASTATIN 20 MG TAB PO SCH ×2 (00:08→23:09)
[2020-10-23] MEDS: FUROSEMIDE 40MG/4ML VIAL (J1940) IV SCH ×4 (00:09→23:12)
[2020-10-23] MEDS: GABAPENTIN 300 MG CAP PO SCH ×4 (00:09→23:09)
[2020-10-23] MEDS: SENOKOT S TAB PO SCH ×2 (00:09→23:11)
[2020-10-23] MEDS: ACETAMINOPHEN 500 MG TAB PO SCH ×4 (00:10→23:10)
[2020-10-23] MEDS: MAGNESIUM OXIDE 400MG TAB (MAG-OX) PO SCH ×3 (00:10→23:11)
[2020-10-23] MEDS: diazePAM 2 MG TAB PO SCH ×3 (00:10→23:08)
[2020-10-23] MEDS: BACLOFEN 5MG PER 1/2 TABLET PO SCH ×4 (00:11→23:10)
[2020-10-23] MEDS: POTASSIUM CHLORIDE 10MEQ SR TABLET PO SCH ×3 (00:11→23:11)
[2020-10-23] MEDS: oxyCODONE 5MG TAB PO PRN ×2 (00:12→16:58)
[2020-10-23] MEDS: DIAPER RELIEF PASTE (DESITIN) 60GM TOP SCH ×3 (00:12→23:12)
[2020-10-23] MEDS: NYSTATIN 100,000 UNITS/GM TOPICAL PWD 15 GM TOP SCH ×3 (00:12→23:13)
[2020-10-23] MEDS: PIPERACILLIN/TAZOBACTAM SOD 3.375 GM in D5W MINI-BAG PLUS 50 ML IV SCH ×5 (00:13→23:14)
[2020-10-23] MEDS: LACTULOSE 20 GM/30 ML SYRUP UD PO SCH ×5 (05:02→23:15)
[2020-10-23 06:00] VITALS: BP 138/85
[2020-10-23] MEDS: SODIUM CHLORIDE 0.9% INJ 10 ML SYR IV SCH ×2 (06:33→18:02)
[2020-10-23] MEDS: LEVOTHYROXINE 50MCG TABLET (0.05MG) PO SCH (06:33)
[2020-10-23 06:56] LABS: BASO # 0.1 10^3/uL (0.0-0.2); BASO % 0.8 % (0.0-1.0); EOS # 3.2 10^3/uL (0.0-0.5); EOS % 19.2 % (0.0-3.0); HEMATOCRIT 26.7 % (36.0-47.0); HEMOGLOBIN 8.5 g/dl (12.0-15.5); LYMPH % 11.7 % (24.0-44.0); MEAN CORPUSCULAR HEMOGLOBIN 28.8 pg (27.0-33.0); MEAN CORPUSCULAR HGB CONC 31.8 g/dl (32.0-36.5); MEAN CORPUSCULAR VOLUME 90.5 fl (80.0-96.0); MONO # 1.5 10^3/uL (0.0-0.8); MONO % 9.1 % (2.0-8.0); NEUTROPHILS # 9.9 10^3/uL (1.5-8.5); NEUTROPHILS % 58.3 % (36.0-66.0); PLATELET COUNT, AUTOMATED 591 10^3/uL (150-450); RED BLOOD COUNT 2.95 10^6/uL (4.00-5.40)
[2020-10-23 06:59] LABS: WHITE BLOOD COUNT 16.9 10^3/uL (4.0-10.0)
[2020-10-23 07:15] LABS: BLOOD UREA NITROGEN 12 MG/DL (7-18); CALCIUM LEVEL 7.3 MG/DL (8.8-10.2); CARBON DIOXIDE LEVEL 30 MEQ/L (21-32); CHLORIDE LEVEL 102 MEQ/L (98-107); CREATININE FOR GFR 0.29 MG/DL (0.55-1.30); GLOMERULAR FILTRATION RATE > 60.0 (>45); GLUCOSE, FASTING 162 MG/DL (70-100); POTASSIUM SERUM 4.3 MEQ/L (3.5-5.1); SODIUM LEVEL 138 MEQ/L (136-145)
[2020-10-23] MEDS: HumaLOG INSULIN (NovoLOG) PER UNIT SC SCH ×4 (09:26→21:00)
[2020-10-23] MEDS: MOM 30ML SUSPENSION UDC PO SCH ×3 (10:06→23:08)
[2020-10-23] MEDS: ONDANSETRON 4MG/2ML VIAL IV PRN ×3 (10:07→23:41)
[2020-10-23] MEDS: PANTOPRAZOLE 40MG TAB (PROTONIX) PO SCH (10:07)
[2020-10-23] MEDS: LIDOCAINE 5% (LIDODERM) PATCH TD SCH (10:07)
[2020-10-23] MEDS: SOLIFENACIN 5 MG TAB PO SCH (10:09)
[2020-10-23] MEDS: FOLIC ACID 1 MG TAB PO SCH (10:09)
[2020-10-23] MEDS: SANTYL OINT 30GM TOP SCH (10:10)
[2020-10-23] MEDS: CYANOCOBALAMIN 250 MCG TABLET PO SCH (10:10)
[2020-10-23] MEDS: SODIUM CHLORIDE 0.9% INJ 10 ML SYR IV PRN ×2 (10:12→23:42)
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
[2020-10-23] MEDS ORDERED: ISOVUE-370 76% 100ML VIAL As Ordered ONE (10:45)
[2020-10-23] MEDS: GASTROGRAFIN SOLUTION 30ML PO SCH ×2 (12:01→12:40)
[2020-10-23] MEDS: DRONABINOL 2.5 MG CAP (MARINOL) PO SCH ×2 (12:04→16:33)
[2020-10-23 12:09] VITALS: BP 132/80
[2020-10-23 14:00] VITALS: BP 127/79
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
[2020-10-23] MEDS: **NOTE PATIENT COMMENT** MISC XX SCH (21:00)
[2020-10-23 22:00] VITALS: BP 124/79
[2020-10-24 06:00] VITALS: BP 107/75
[2020-10-24] MEDS: LACTULOSE 20 GM/30 ML SYRUP UD PO SCH ×3 (06:00→17:54)
[2020-10-24] MEDS: FUROSEMIDE 40MG/4ML VIAL (J1940) IV SCH ×3 (06:09→22:50)
[2020-10-24] MEDS: LEVOTHYROXINE 50MCG TABLET (0.05MG) PO SCH (06:09)
[2020-10-24] MEDS: SODIUM CHLORIDE 0.9% INJ 10 ML SYR IV SCH ×2 (06:09→17:53)
[2020-10-24] MEDS: PIPERACILLIN/TAZOBACTAM SOD 3.375 GM in D5W MINI-BAG PLUS 50 ML IV SCH ×4 (06:12→22:55)
[2020-10-24 06:39] LABS: HEMATOCRIT 26.2 % (36.0-47.0); HEMOGLOBIN 8.2 g/dl (12.0-15.5); MEAN CORPUSCULAR HEMOGLOBIN 28.7 pg (27.0-33.0); MEAN CORPUSCULAR HGB CONC 31.3 g/dl (32.0-36.5); MEAN CORPUSCULAR VOLUME 91.6 fl (80.0-96.0); PLATELET COUNT, AUTOMATED 514 10^3/uL (150-450); RED BLOOD COUNT 2.86 10^6/uL (4.00-5.40); WHITE BLOOD COUNT 13.9 10^3/uL (4.0-10.0)
[2020-10-24 07:10] LABS: BLOOD UREA NITROGEN 13 MG/DL (7-18); CALCIUM LEVEL 7.7 MG/DL (8.8-10.2); CARBON DIOXIDE LEVEL 32 MEQ/L (21-32); CHLORIDE LEVEL 102 MEQ/L (98-107); CREATININE FOR GFR 0.29 MG/DL (0.55-1.30); GLOMERULAR FILTRATION RATE > 60.0 (>45); GLUCOSE, FASTING 144 MG/DL (70-100); MAGNESIUM LEVEL 1.7 MG/DL (1.8-2.4); POTASSIUM SERUM 4.4 MEQ/L (3.5-5.1); SODIUM LEVEL 139 MEQ/L (136-145)
[2020-10-24] MEDS: HumaLOG INSULIN (NovoLOG) PER UNIT SC SCH ×4 (07:30→21:00)
[2020-10-24] MEDS: MOM 30ML SUSPENSION UDC PO SCH ×2 (08:11→22:48)
[2020-10-24] MEDS: LIDOCAINE 5% (LIDODERM) PATCH TD SCH (08:12)
[2020-10-24] MEDS: diazePAM 2 MG TAB PO SCH ×2 (08:13→22:48)
[2020-10-24] MEDS: SODIUM CHLORIDE 0.9% INJ 10 ML SYR IV PRN ×2 (08:13→13:21)
[2020-10-24] MEDS: SOLIFENACIN 5 MG TAB PO SCH (08:13)
[2020-10-24] MEDS: GABAPENTIN 300 MG CAP PO SCH ×3 (08:13→22:48)
[2020-10-24] MEDS: ACETAMINOPHEN 500 MG TAB PO SCH ×3 (08:14→22:47)
[2020-10-24] MEDS: oxyCODONE 5MG TAB PO PRN ×2 (08:14→17:55)
[2020-10-24] MEDS: FOLIC ACID 1 MG TAB PO SCH (08:15)
[2020-10-24] MEDS: POTASSIUM CHLORIDE 10MEQ SR TABLET PO SCH ×2 (08:15→22:55)
[2020-10-24] MEDS: PANTOPRAZOLE 40MG TAB (PROTONIX) PO SCH (08:15)
[2020-10-24] MEDS: MAGNESIUM OXIDE 400MG TAB (MAG-OX) PO SCH ×2 (08:15→22:49)
[2020-10-24] MEDS: NYSTATIN 100,000 UNITS/GM TOPICAL PWD 15 GM TOP SCH ×2 (08:16→22:50)
[2020-10-24] MEDS: DIAPER RELIEF PASTE (DESITIN) 60GM TOP SCH ×2 (08:17→22:50)
[2020-10-24 09:00] VITALS: O2SAT 98
[2020-10-24] MEDS: CYANOCOBALAMIN 250 MCG TABLET PO SCH (10:43)
[2020-10-24] MEDS: BACLOFEN 5MG PER 1/2 TABLET PO SCH ×3 (10:43→22:48)
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
--- NOTE | 2020-10-24 12:40 | REP ---
INDICATION: Abdominal pain, constipation COMPARISON: None. TECHNIQUE: Supine views of the abdomen and pelvis. FINDINGS: Moderate to significant fecal stasis and constipation. No obvious obstruction or perforation. Evidence for prior cholecystectomy. Skeletal structures demonstrate age-related degenerative changes. IMPRESSION: Moderate to significant fecal stasis and constipation suggested. <Electronically signed by Sarbjit Parnell > 10/24/20 [id number]
[2020-10-24] MEDS: hydrOXYzine 25 MG TAB PO PRN (13:19)
[2020-10-24] MEDS: DRONABINOL 2.5 MG CAP (MARINOL) PO SCH ×2 (13:19→17:54)
[2020-10-24 14:00] VITALS: BP 143/88
[2020-10-24] MEDS: ONDANSETRON 4MG/2ML VIAL IV PRN (17:54)
[2020-10-24] MEDS ORDERED: PILL CUTTER 1 EACH XX PRN (18:00)
[2020-10-24 21:00] VITALS: O2SAT 99
[2020-10-24] MEDS: **NOTE PATIENT COMMENT** MISC XX SCH (21:00)
[2020-10-24 22:00] VITALS: BP 109/66
[2020-10-24] MEDS: SENOKOT S TAB PO SCH (22:48)
[2020-10-24] MEDS: ATORVASTATIN 20 MG TAB PO SCH (22:49)
[2020-10-24] MEDS: FERROUS GLUCONATE 324 MG TAB PO SCH (22:49)
[2020-10-25 06:00] VITALS: BP 129/71
[2020-10-25] MEDS: FUROSEMIDE 40MG/4ML VIAL (J1940) IV SCH ×3 (06:25→21:54)
[2020-10-25] MEDS: LACTULOSE 20 GM/30 ML SYRUP UD PO SCH ×4 (06:26→17:55)
[2020-10-25] MEDS: PIPERACILLIN/TAZOBACTAM SOD 3.375 GM in D5W MINI-BAG PLUS 50 ML IV SCH ×4 (06:26→21:54)
[2020-10-25] MEDS: SODIUM CHLORIDE 0.9% INJ 10 ML SYR IV SCH ×2 (06:26→17:53)
[2020-10-25] MEDS: LEVOTHYROXINE 50MCG TABLET (0.05MG) PO SCH (06:26)
[2020-10-25 06:49] LABS: HEMATOCRIT 26.7 % (36.0-47.0); HEMOGLOBIN 8.3 g/dl (12.0-15.5); MEAN CORPUSCULAR HEMOGLOBIN 28.6 pg (27.0-33.0); MEAN CORPUSCULAR HGB CONC 31.1 g/dl (32.0-36.5); MEAN CORPUSCULAR VOLUME 92.1 fl (80.0-96.0); PLATELET COUNT, AUTOMATED 564 10^3/uL (150-450); WHITE BLOOD COUNT 14.6 10^3/uL (4.0-10.0)
[2020-10-25 07:15] LABS: BLOOD UREA NITROGEN 14 MG/DL (7-18); CALCIUM LEVEL 8.1 MG/DL (8.8-10.2); CARBON DIOXIDE LEVEL 34 MEQ/L (21-32); CHLORIDE LEVEL 100 MEQ/L (98-107); CREATININE FOR GFR 0.37 MG/DL (0.55-1.30); GLOMERULAR FILTRATION RATE > 60.0 (>45); GLUCOSE, FASTING 113 MG/DL (70-100); POTASSIUM SERUM 4.3 MEQ/L (3.5-5.1); SODIUM LEVEL 138 MEQ/L (136-145)
[2020-10-25] MEDS: HumaLOG INSULIN (NovoLOG) PER UNIT SC SCH ×4 (07:30→21:00)
[2020-10-25 09:00] VITALS: O2SAT 100
[2020-10-25] MEDS: LIDOCAINE 5% (LIDODERM) PATCH TD SCH (09:00)
[2020-10-25] MEDS: MOM 30ML SUSPENSION UDC PO SCH ×2 (09:58→21:54)
[2020-10-25] MEDS: oxyCODONE 5MG TAB PO PRN ×2 (09:59→17:53)
[2020-10-25] MEDS: GABAPENTIN 300 MG CAP PO SCH ×3 (09:59→21:56)
[2020-10-25] MEDS: SOLIFENACIN 5 MG TAB PO SCH (09:59)
[2020-10-25] MEDS: diazePAM 2 MG TAB PO SCH ×2 (10:00→21:55)
[2020-10-25] MEDS: PANTOPRAZOLE 40MG TAB (PROTONIX) PO SCH (10:00)
[2020-10-25] MEDS: ACETAMINOPHEN 500 MG TAB PO SCH ×3 (10:00→21:55)
[2020-10-25] MEDS: ONDANSETRON 4MG/2ML VIAL IV PRN (10:00)
[2020-10-25] MEDS: BACLOFEN 5MG PER 1/2 TABLET PO SCH ×3 (10:00→21:55)
[2020-10-25] MEDS: MAGNESIUM OXIDE 400MG TAB (MAG-OX) PO SCH ×2 (10:01→21:55)
[2020-10-25] MEDS: FOLIC ACID 1 MG TAB PO SCH (10:01)
[2020-10-25] MEDS: CYANOCOBALAMIN 250 MCG TABLET PO SCH (10:01)
[2020-10-25] MEDS: POTASSIUM CHLORIDE 10MEQ SR TABLET PO SCH ×2 (10:01→21:56)
[2020-10-25] MEDS: DIAPER RELIEF PASTE (DESITIN) 60GM TOP SCH ×2 (10:02→21:56)
[2020-10-25] MEDS: NYSTATIN 100,000 UNITS/GM TOPICAL PWD 15 GM TOP SCH ×2 (10:08→21:56)
[2020-10-25] MEDS: SODIUM CHLORIDE 0.9% INJ 10 ML SYR IV PRN (10:17)
[2020-10-25] MEDS: DRONABINOL 2.5 MG CAP (MARINOL) PO SCH ×2 (12:08→17:55)
[2020-10-25] MEDS: METOCLOPRAMIDE INJ 10MG/2ML VIAL (J2765 PER 1) IV PRN (12:08)
[2020-10-25] MEDS: hydrOXYzine 25 MG TAB PO PRN (12:08)
[2020-10-25 14:00] VITALS: BP 113/61
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
--- NOTE | 2020-10-25 16:30 | IPNPDOC ---
Text Note Date of Service The patient was seen on 10/25/20. NOTE I saw Trudy this morning at 1130. We discussed her current medical condition and the likelihood she will pass away from sepsis at [place] in the next 3 to 6 months. She ws withdrawn and appeared quite tired and asked me to come back in the afternoon when her spouse Choco was available. I returned at 1530 and Trudy, Tood and I reviewed 5 Wishes as well as the options on the MOLST form. I explained the severity of injuries people often suffer during chest compressions. Trudy appeared to be listening to the conversation but did not participate much. Choco had a lot of questions about what treatments could and could not continue on hospice care, most particularly antibiotic treatment. He expressed concern that discontinuing antibiotics would result in her sooner than if she continues on antibiotics. I did inform him I asked hospice about Trudy receiving suboxone for pain management on hospice and I was told that should not be a problem. Choco has a lot of concerns and both Choco and trudy appear to be conflicted about her goals of care. They both express the desire for her to be comfortable and seem to understand she likely has less than 6 months to live, but at the same time continue to express hope she will improve on antibiotic treatment and return home. I left a message for the workforce planner regarding the above and alos contated Suha Willett golf club assembler at [facility] regarding an informational meeting with Choco and Trudy next week on Thursday afternoon. I can try to revisit completion of MOLST form next week if it has not been done by then. VS,Fishbone, I+O VS, Fishbone, I+O Laboratory Tests 10/25/20 06:36 Vital Signs Date Time Temp Pulse Resp B/P (MAP) Pulse Ox O2 Delivery O2 Flow Rate FiO2 10/25/20 14:00 97.2 103 18 113/61 (78) 98 Trach Collar 5.0 28 I&O- Last 24 Hours up to 6 AM 10/25/20 06:00 Intake Total 1610 ml Output Total 3200 ml Balance -1590 ml Kasey [employer] October 25, 2020 16:30
[2020-10-25] MEDS: **NOTE PATIENT COMMENT** MISC XX SCH (21:00)
[2020-10-25] MEDS: SENOKOT S TAB PO SCH (21:55)
[2020-10-25] MEDS: ATORVASTATIN 20 MG TAB PO SCH (21:55)
[2020-10-25] MEDS: FERROUS GLUCONATE 324 MG TAB PO SCH (21:56)
[2020-10-25 22:00] VITALS: BP 117/70
[2020-10-26] MEDS: LACTULOSE 20 GM/30 ML SYRUP UD PO SCH ×5 (00:07→23:15)
[2020-10-26] MEDS: FUROSEMIDE 40MG/4ML VIAL (J1940) IV SCH ×3 (04:49→21:48)
[2020-10-26] MEDS: PIPERACILLIN/TAZOBACTAM SOD 3.375 GM in D5W MINI-BAG PLUS 50 ML IV SCH ×4 (04:49→21:50)
[2020-10-26 04:58] VITALS: O2SAT 98
[2020-10-26] MEDS: LEVOTHYROXINE 50MCG TABLET (0.05MG) PO SCH (05:38)
[2020-10-26] MEDS: SODIUM CHLORIDE 0.9% INJ 10 ML SYR IV SCH ×2 (05:39→17:12)
[2020-10-26 06:00] VITALS: BP 115/71
[2020-10-26 07:11] LABS: HEMATOCRIT 30.2 % (36.0-47.0); HEMOGLOBIN 9.3 g/dl (12.0-15.5); MEAN CORPUSCULAR HEMOGLOBIN 28.4 pg (27.0-33.0); MEAN CORPUSCULAR HGB CONC 30.8 g/dl (32.0-36.5); MEAN CORPUSCULAR VOLUME 92.4 fl (80.0-96.0); PLATELET COUNT, AUTOMATED 552 10^3/uL (150-450); RED BLOOD COUNT 3.27 10^6/uL (4.00-5.40); WHITE BLOOD COUNT 13.2 10^3/uL (4.0-10.0)
[2020-10-26 07:39] LABS: BLOOD UREA NITROGEN 15 MG/DL (7-18); CALCIUM LEVEL 7.9 MG/DL (8.8-10.2); CARBON DIOXIDE LEVEL 33 MEQ/L (21-32); CHLORIDE LEVEL 99 MEQ/L (98-107); CREATININE FOR GFR 0.45 MG/DL (0.55-1.30); GLOMERULAR FILTRATION RATE > 60.0 (>45); GLUCOSE, FASTING 121 MG/DL (70-100); SODIUM LEVEL 138 MEQ/L (136-145)
[2020-10-26] MEDS: CYANOCOBALAMIN 250 MCG TABLET PO SCH (08:58)
[2020-10-26] MEDS: GABAPENTIN 300 MG CAP PO SCH ×3 (08:58→21:46)
[2020-10-26] MEDS: MAGNESIUM OXIDE 400MG TAB (MAG-OX) PO SCH ×2 (08:58→21:48)
[2020-10-26] MEDS: FOLIC ACID 1 MG TAB PO SCH (08:58)
[2020-10-26] MEDS: SOLIFENACIN 5 MG TAB PO SCH (08:58)
[2020-10-26] MEDS: ACETAMINOPHEN 500 MG TAB PO SCH ×3 (08:59→21:47)
[2020-10-26] MEDS: POTASSIUM CHLORIDE 10MEQ SR TABLET PO SCH ×2 (08:59→21:46)
[2020-10-26] MEDS: BACLOFEN 5MG PER 1/2 TABLET PO SCH ×3 (09:00→21:47)
[2020-10-26] MEDS: PANTOPRAZOLE 40MG TAB (PROTONIX) PO SCH (09:00)
[2020-10-26] MEDS: HumaLOG INSULIN (NovoLOG) PER UNIT SC SCH ×4 (09:00→21:00)
[2020-10-26] MEDS: SODIUM CHLORIDE 0.9% INJ 10 ML SYR IV PRN ×3 (09:00→16:10)
[2020-10-26] MEDS: NYSTATIN 100,000 UNITS/GM TOPICAL PWD 15 GM TOP SCH ×2 (09:01→21:50)
[2020-10-26] MEDS: LIDOCAINE 5% (LIDODERM) PATCH TD SCH (09:01)
[2020-10-26] MEDS: DIAPER RELIEF PASTE (DESITIN) 60GM TOP SCH ×2 (09:01→21:50)
[2020-10-26] MEDS: diazePAM 2 MG TAB PO SCH ×2 (09:02→21:48)
[2020-10-26] MEDS: MOM 30ML SUSPENSION UDC PO SCH ×2 (09:02→21:44)
[2020-10-26] MEDS: METOCLOPRAMIDE INJ 10MG/2ML VIAL (J2765 PER 1) IV PRN (12:06)
[2020-10-26] MEDS: oxyCODONE 5MG TAB PO PRN ×2 (12:07→21:46)
[2020-10-26] MEDS: DRONABINOL 2.5 MG CAP (MARINOL) PO SCH ×2 (12:07→17:12)
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
[2020-10-26 13:44] VITALS: BP 114/72
[2020-10-26] MEDS: ONDANSETRON 4MG/2ML VIAL IV PRN (16:09)
[2020-10-26] MEDS: SENOKOT S TAB PO SCH (21:46)
[2020-10-26] MEDS: ATORVASTATIN 20 MG TAB PO SCH (21:46)
[2020-10-26] MEDS: FERROUS GLUCONATE 324 MG TAB PO SCH (21:47)
[2020-10-26] MEDS: hydrOXYzine 25 MG TAB PO PRN (21:47)
[2020-10-26] MEDS: **NOTE PATIENT COMMENT** MISC XX SCH (21:49)
[2020-10-26 22:00] VITALS: BP 149/80
[2020-10-27] MEDS: PIPERACILLIN/TAZOBACTAM SOD 3.375 GM in D5W MINI-BAG PLUS 50 ML IV SCH ×4 (03:28→22:14)
[2020-10-27] MEDS: oxyCODONE 5MG TAB PO PRN ×4 (03:49→22:49)
[2020-10-27] MEDS: FUROSEMIDE 40MG/4ML VIAL (J1940) IV SCH ×3 (05:19→22:11)
[2020-10-27] MEDS: LACTULOSE 20 GM/30 ML SYRUP UD PO SCH (05:19)
[2020-10-27] MEDS: SODIUM CHLORIDE 0.9% INJ 10 ML SYR IV SCH ×2 (05:21→16:41)
[2020-10-27] MEDS: LEVOTHYROXINE 50MCG TABLET (0.05MG) PO SCH (05:33)
[2020-10-27] MEDS: ONDANSETRON 4MG/2ML VIAL IV PRN ×3 (05:35→22:11)
[2020-10-27 05:55] VITALS: O2SAT 96
[2020-10-27 06:00] VITALS: BP 124/71
[2020-10-27 06:59] LABS: HEMATOCRIT 28.1 % (36.0-47.0); HEMOGLOBIN 8.7 g/dl (12.0-15.5); MEAN CORPUSCULAR HEMOGLOBIN 28.5 pg (27.0-33.0); MEAN CORPUSCULAR VOLUME 92.1 fl (80.0-96.0); PLATELET COUNT, AUTOMATED 522 10^3/uL (150-450); RED BLOOD COUNT 3.05 10^6/uL (4.00-5.40); WHITE BLOOD COUNT 13.5 10^3/uL (4.0-10.0)
[2020-10-27 07:36] LABS: BLOOD UREA NITROGEN 15 MG/DL (7-18); CALCIUM LEVEL 7.6 MG/DL (8.8-10.2); CARBON DIOXIDE LEVEL 31 MEQ/L (21-32); CHLORIDE LEVEL 99 MEQ/L (98-107); CREATININE FOR GFR 0.43 MG/DL (0.55-1.30); GLOMERULAR FILTRATION RATE > 60.0 (>45); GLUCOSE, FASTING 146 MG/DL (70-100); MAGNESIUM LEVEL 2.2 MG/DL (1.8-2.4); POTASSIUM SERUM 4.2 MEQ/L (3.5-5.1); SODIUM LEVEL 137 MEQ/L (136-145)
[2020-10-27] MEDS: MOM 30ML SUSPENSION UDC PO SCH ×2 (09:00→09:35)
[2020-10-27] MEDS: ACETAMINOPHEN 500 MG TAB PO SCH ×3 (09:00→22:13)
[2020-10-27] MEDS: METOCLOPRAMIDE INJ 10MG/2ML VIAL (J2765 PER 1) IV PRN ×2 (09:34→16:41)
[2020-10-27] MEDS: NYSTATIN 100,000 UNITS/GM TOPICAL PWD 15 GM TOP SCH ×2 (09:34→22:11)
[2020-10-27] MEDS: HumaLOG INSULIN (NovoLOG) PER UNIT SC SCH ×4 (09:34→21:00)
[2020-10-27] MEDS: DIAPER RELIEF PASTE (DESITIN) 60GM TOP SCH ×2 (09:35→22:14)
[2020-10-27] MEDS: LIDOCAINE 5% (LIDODERM) PATCH TD SCH (09:35)
[2020-10-27] MEDS: diazePAM 2 MG TAB PO SCH ×2 (09:35→22:10)
[2020-10-27] MEDS: GABAPENTIN 300 MG CAP PO SCH ×3 (09:36→22:12)
[2020-10-27] MEDS: PANTOPRAZOLE 40MG TAB (PROTONIX) PO SCH (09:36)
[2020-10-27] MEDS: POTASSIUM CHLORIDE 10MEQ SR TABLET PO SCH ×2 (09:36→22:12)
[2020-10-27] MEDS: SOLIFENACIN 5 MG TAB PO SCH (09:36)
[2020-10-27] MEDS: MAGNESIUM OXIDE 400MG TAB (MAG-OX) PO SCH ×2 (09:37→22:14)
[2020-10-27] MEDS: CYANOCOBALAMIN 250 MCG TABLET PO SCH (09:37)
[2020-10-27] MEDS: FOLIC ACID 1 MG TAB PO SCH (09:37)
[2020-10-27] MEDS: BACLOFEN 5MG PER 1/2 TABLET PO SCH ×3 (09:37→22:11)
[2020-10-27] MEDS: SODIUM CHLORIDE 0.9% INJ 10 ML SYR IV PRN (09:38)
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
[2020-10-27] MEDS: hydrOXYzine 25 MG TAB PO PRN (11:50)
[2020-10-27] MEDS: SUCRALFATE SUSP 1GM/10ML UD PO SCH ×3 (11:50→22:10)
[2020-10-27] MEDS: DRONABINOL 2.5 MG CAP (MARINOL) PO SCH ×2 (11:50→16:42)
[2020-10-27 13:27] VITALS: BP 125/71
[2020-10-27] MEDS: **NOTE PATIENT COMMENT** MISC XX SCH (21:00)
[2020-10-27 22:00] VITALS: BP 127/79
[2020-10-27] MEDS: FERROUS GLUCONATE 324 MG TAB PO SCH (22:13)
[2020-10-27] MEDS: SENOKOT S TAB PO SCH (22:13)
[2020-10-27] MEDS: ATORVASTATIN 20 MG TAB PO SCH (22:14)
[2020-10-27 23:00] VITALS: O2SAT 97
[2020-10-28] MEDS: SODIUM CHLORIDE 0.9% INJ 10 ML SYR IV PRN (00:01)
[2020-10-28] MEDS: PIPERACILLIN/TAZOBACTAM SOD 3.375 GM in D5W MINI-BAG PLUS 50 ML IV SCH ×4 (04:59→22:12)
[2020-10-28] MEDS: FUROSEMIDE 40MG/4ML VIAL (J1940) IV SCH ×3 (04:59→22:12)
[2020-10-28 06:00] VITALS: BP 122/78
[2020-10-28] MEDS: LEVOTHYROXINE 50MCG TABLET (0.05MG) PO SCH (06:13)
[2020-10-28] MEDS: SODIUM CHLORIDE 0.9% INJ 10 ML SYR IV SCH ×2 (06:14→17:11)
[2020-10-28 06:16] LABS: HEMATOCRIT 28.2 % (36.0-47.0); HEMOGLOBIN 8.7 g/dl (12.0-15.5); MEAN CORPUSCULAR HEMOGLOBIN 28.7 pg (27.0-33.0); MEAN CORPUSCULAR HGB CONC 30.9 g/dl (32.0-36.5); MEAN CORPUSCULAR VOLUME 93.1 fl (80.0-96.0); PLATELET COUNT, AUTOMATED 511 10^3/uL (150-450); RED BLOOD COUNT 3.03 10^6/uL (4.00-5.40); WHITE BLOOD COUNT 12.5 10^3/uL (4.0-10.0)
[2020-10-28 06:47] LABS: BLOOD UREA NITROGEN 14 MG/DL (7-18); CALCIUM LEVEL 7.8 MG/DL (8.8-10.2); CARBON DIOXIDE LEVEL 32 MEQ/L (21-32); CHLORIDE LEVEL 100 MEQ/L (98-107); CREATININE FOR GFR 0.44 MG/DL (0.55-1.30); GLOMERULAR FILTRATION RATE > 60.0 (>45); GLUCOSE, FASTING 151 MG/DL (70-100); POTASSIUM SERUM 4.2 MEQ/L (3.5-5.1); SODIUM LEVEL 138 MEQ/L (136-145)
[2020-10-28] MEDS: LIDOCAINE 5% (LIDODERM) PATCH TD SCH (08:50)
[2020-10-28] MEDS: POTASSIUM CHLORIDE 10MEQ SR TABLET PO SCH ×2 (08:50→22:11)
[2020-10-28] MEDS: HumaLOG INSULIN (NovoLOG) PER UNIT SC SCH ×4 (08:50→21:00)
[2020-10-28] MEDS: GABAPENTIN 300 MG CAP PO SCH ×3 (08:51→22:10)
[2020-10-28] MEDS: MAGNESIUM OXIDE 400MG TAB (MAG-OX) PO SCH ×2 (08:51→22:11)
[2020-10-28] MEDS: PANTOPRAZOLE 40MG TAB (PROTONIX) PO SCH (08:51)
[2020-10-28] MEDS: FOLIC ACID 1 MG TAB PO SCH (08:51)
[2020-10-28] MEDS: ACETAMINOPHEN 500 MG TAB PO SCH ×3 (08:51→22:10)
[2020-10-28] MEDS: CYANOCOBALAMIN 250 MCG TABLET PO SCH (08:51)
[2020-10-28] MEDS: SUCRALFATE SUSP 1GM/10ML UD PO SCH ×4 (08:53→22:09)
[2020-10-28] MEDS: BACLOFEN 5MG PER 1/2 TABLET PO SCH ×3 (08:53→22:10)
[2020-10-28] MEDS: LACTULOSE 20 GM/30 ML SYRUP UD PO SCH ×2 (08:53→09:00)
[2020-10-28] MEDS: oxyCODONE 5MG TAB PO PRN ×2 (08:53→22:10)
[2020-10-28] MEDS: SOLIFENACIN 5 MG TAB PO SCH (08:53)
[2020-10-28] MEDS: diazePAM 2 MG TAB PO SCH ×2 (08:56→22:11)
[2020-10-28] MEDS: DIAPER RELIEF PASTE (DESITIN) 60GM TOP SCH ×2 (08:57→22:13)
[2020-10-28] MEDS: NYSTATIN 100,000 UNITS/GM TOPICAL PWD 15 GM TOP SCH ×2 (08:57→22:13)
[2020-10-28] MEDS: DRONABINOL 2.5 MG CAP (MARINOL) PO SCH ×2 (12:13→17:12)
[2020-10-28 12:15] VITALS: O2SAT 100
[2020-10-28] MEDS: ONDANSETRON 4MG/2ML VIAL IV PRN ×3 (12:19→22:12)
[2020-10-28 14:00] VITALS: BP 118/78
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
[2020-10-28 21:00] VITALS: O2SAT 99
[2020-10-28] MEDS: **NOTE PATIENT COMMENT** MISC XX SCH (21:00)
[2020-10-28 22:00] VITALS: BP 142/89
[2020-10-28] MEDS: ATORVASTATIN 20 MG TAB PO SCH (22:09)
[2020-10-28] MEDS: SENOKOT S TAB PO SCH (22:09)
[2020-10-28] MEDS: FERROUS GLUCONATE 324 MG TAB PO SCH (22:12)
[2020-10-29] VITALS (10 sets, daily range): BP systolic 134–140; BP diastolic 80–85; O2SAT 96–99
[2020-10-29] MEDS: FUROSEMIDE 40MG/4ML VIAL (J1940) IV SCH ×3 (04:44→21:24)
[2020-10-29] MEDS: PIPERACILLIN/TAZOBACTAM SOD 3.375 GM in D5W MINI-BAG PLUS 50 ML IV SCH ×4 (04:45→21:23)
[2020-10-29] MEDS: LEVOTHYROXINE 50MCG TABLET (0.05MG) PO SCH (05:54)
[2020-10-29] MEDS: oxyCODONE 5MG TAB PO PRN ×3 (05:55→18:00)
[2020-10-29] MEDS: SODIUM CHLORIDE 0.9% INJ 10 ML SYR IV SCH ×2 (05:56→17:07)
[2020-10-29 06:45] LABS: HEMATOCRIT 27.2 % (36.0-47.0); HEMOGLOBIN 8.3 g/dl (12.0-15.5); MEAN CORPUSCULAR HEMOGLOBIN 28.8 pg (27.0-33.0); MEAN CORPUSCULAR HGB CONC 30.5 g/dl (32.0-36.5); MEAN CORPUSCULAR VOLUME 94.4 fl (80.0-96.0); PLATELET COUNT, AUTOMATED 527 10^3/uL (150-450); RED BLOOD COUNT 2.88 10^6/uL (4.00-5.40); WHITE BLOOD COUNT 13.9 10^3/uL (4.0-10.0)
[2020-10-29 07:30] LABS: BLOOD UREA NITROGEN 19 MG/DL (7-18); CALCIUM LEVEL 8.7 MG/DL (8.8-10.2); CARBON DIOXIDE LEVEL 33 MEQ/L (21-32); CHLORIDE LEVEL 99 MEQ/L (98-107); CREATININE FOR GFR 0.66 MG/DL (0.55-1.30); GLOMERULAR FILTRATION RATE > 60.0 (>45); GLUCOSE, FASTING 180 MG/DL (70-100); POTASSIUM SERUM 4.3 MEQ/L (3.5-5.1); SODIUM LEVEL 137 MEQ/L (136-145)
[2020-10-29] MEDS: METOCLOPRAMIDE INJ 10MG/2ML VIAL (J2765 PER 1) IV PRN ×2 (08:13→17:07)
[2020-10-29] MEDS: LIDOCAINE 5% (LIDODERM) PATCH TD SCH (08:13)
[2020-10-29] MEDS: HumaLOG INSULIN (NovoLOG) PER UNIT SC SCH ×4 (08:14→21:00)
[2020-10-29] MEDS: POTASSIUM CHLORIDE 10MEQ SR TABLET PO SCH ×2 (08:14→21:23)
[2020-10-29] MEDS: SUCRALFATE SUSP 1GM/10ML UD PO SCH ×4 (08:14→21:21)
[2020-10-29] MEDS: GABAPENTIN 300 MG CAP PO SCH ×3 (08:15→21:21)
[2020-10-29] MEDS: SOLIFENACIN 5 MG TAB PO SCH (08:15)
[2020-10-29] MEDS: diazePAM 2 MG TAB PO SCH ×2 (08:15→21:21)
[2020-10-29] MEDS: ACETAMINOPHEN 500 MG TAB PO SCH ×3 (08:15→21:22)
[2020-10-29] MEDS: PANTOPRAZOLE 40MG TAB (PROTONIX) PO SCH (08:15)
[2020-10-29] MEDS: BACLOFEN 5MG PER 1/2 TABLET PO SCH ×3 (08:15→21:23)
[2020-10-29] MEDS: CYANOCOBALAMIN 250 MCG TABLET PO SCH (08:15)
[2020-10-29] MEDS: FOLIC ACID 1 MG TAB PO SCH (08:15)
[2020-10-29] MEDS: LACTULOSE 20 GM/30 ML SYRUP UD PO SCH (08:16)
[2020-10-29] MEDS: MAGNESIUM OXIDE 400MG TAB (MAG-OX) PO SCH ×2 (08:16→21:23)
[2020-10-29] MEDS: NYSTATIN 100,000 UNITS/GM TOPICAL PWD 15 GM TOP SCH ×2 (08:16→21:24)
[2020-10-29] MEDS: DIAPER RELIEF PASTE (DESITIN) 60GM TOP SCH ×2 (08:17→21:25)
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
[2020-10-29] MEDS: ONDANSETRON 4MG/2ML VIAL IV PRN ×2 (12:05→21:23)
[2020-10-29] MEDS: DRONABINOL 2.5 MG CAP (MARINOL) PO SCH ×2 (12:07→17:08)
[2020-10-29] MEDS: hydrOXYzine 25 MG TAB PO PRN ×2 (12:07→21:23)
[2020-10-29] MEDS: **NOTE PATIENT COMMENT** MISC XX SCH (21:00)
[2020-10-29] MEDS: SENOKOT S TAB PO SCH (21:23)
[2020-10-29] MEDS: ATORVASTATIN 20 MG TAB PO SCH (21:23)
[2020-10-29] MEDS: FERROUS GLUCONATE 324 MG TAB PO SCH (21:23)
[2020-10-30] MEDS: oxyCODONE 5MG TAB PO PRN ×4 (00:38→19:04)
[2020-10-30] MEDS: METOCLOPRAMIDE INJ 10MG/2ML VIAL (J2765 PER 1) IV PRN (00:38)
[2020-10-30] MEDS: PIPERACILLIN/TAZOBACTAM SOD 3.375 GM in D5W MINI-BAG PLUS 50 ML IV SCH ×4 (04:37→21:56)
[2020-10-30] MEDS: FUROSEMIDE 40MG/4ML VIAL (J1940) IV SCH ×3 (04:38→21:55)
[2020-10-30] MEDS: LEVOTHYROXINE 50MCG TABLET (0.05MG) PO SCH (05:54)
[2020-10-30] MEDS: SODIUM CHLORIDE 0.9% INJ 10 ML SYR IV SCH ×2 (05:55→17:26)
[2020-10-30 06:00] VITALS: BP 149/85
[2020-10-30 06:02] LABS: HEMATOCRIT 29.7 % (36.0-47.0); HEMOGLOBIN 9.1 g/dl (12.0-15.5); MEAN CORPUSCULAR HEMOGLOBIN 28.9 pg (27.0-33.0); MEAN CORPUSCULAR HGB CONC 30.6 g/dl (32.0-36.5); MEAN CORPUSCULAR VOLUME 94.3 fl (80.0-96.0); PLATELET COUNT, AUTOMATED 448 10^3/uL (150-450); RED BLOOD COUNT 3.15 10^6/uL (4.00-5.40); WHITE BLOOD COUNT 14.2 10^3/uL (4.0-10.0)
[2020-10-30] MEDS: ONDANSETRON 4MG/2ML VIAL IV PRN ×2 (06:05→13:13)
[2020-10-30] MEDS: hydrOXYzine 25 MG TAB PO PRN (06:05)
[2020-10-30 06:31] LABS: BLOOD UREA NITROGEN 19 MG/DL (7-18); CARBON DIOXIDE LEVEL 32 MEQ/L (21-32); CHLORIDE LEVEL 98 MEQ/L (98-107); CREATININE FOR GFR 0.52 MG/DL (0.55-1.30); GLOMERULAR FILTRATION RATE > 60.0 (>45); GLUCOSE, FASTING 155 MG/DL (70-100); POTASSIUM SERUM 3.9 MEQ/L (3.5-5.1); SODIUM LEVEL 138 MEQ/L (136-145)
[2020-10-30] MEDS: LACTULOSE 20 GM/30 ML SYRUP UD PO SCH (09:50)
[2020-10-30] MEDS: SUCRALFATE SUSP 1GM/10ML UD PO SCH ×4 (09:50→21:55)
[2020-10-30] MEDS: HumaLOG INSULIN (NovoLOG) PER UNIT SC SCH ×4 (09:51→21:00)
[2020-10-30] MEDS: GABAPENTIN 300 MG CAP PO SCH ×3 (09:51→21:56)
[2020-10-30] MEDS: POTASSIUM CHLORIDE 10MEQ SR TABLET PO SCH ×2 (09:51→21:56)
[2020-10-30] MEDS: MAGNESIUM OXIDE 400MG TAB (MAG-OX) PO SCH ×2 (09:51→21:58)
[2020-10-30] MEDS: diazePAM 2 MG TAB PO SCH ×2 (09:51→21:58)
[2020-10-30] MEDS: FOLIC ACID 1 MG TAB PO SCH (09:52)
[2020-10-30] MEDS: SOLIFENACIN 5 MG TAB PO SCH (09:52)
[2020-10-30] MEDS: BACLOFEN 5MG PER 1/2 TABLET PO SCH ×3 (09:52→21:58)
[2020-10-30] MEDS: ACETAMINOPHEN 500 MG TAB PO SCH ×3 (09:52→21:57)
[2020-10-30] MEDS: PANTOPRAZOLE 40MG TAB (PROTONIX) PO SCH (09:52)
[2020-10-30] MEDS: CYANOCOBALAMIN 250 MCG TABLET PO SCH (09:52)
[2020-10-30] MEDS: NYSTATIN 100,000 UNITS/GM TOPICAL PWD 15 GM TOP SCH ×2 (09:52→21:59)
[2020-10-30] MEDS: LIDOCAINE 5% (LIDODERM) PATCH TD SCH (09:53)
[2020-10-30] MEDS: DIAPER RELIEF PASTE (DESITIN) 60GM TOP SCH ×2 (09:53→22:00)
[2020-10-30] MEDS ORDERED: CALCIUM CARBONATE 500 MG CHEW U/D PO PRN (11:25)
[2020-10-30] MEDS: DRONABINOL 2.5 MG CAP (MARINOL) PO SCH ×2 (11:39→17:25)
[2020-10-30] MEDS: SODIUM CHLORIDE 0.9% INJ 10 ML SYR IV PRN ×2 (11:40→13:09)
[2020-10-30] MEDS: ANALGESIC BALM CRM 3OZ TOP SCH ×3 (11:42→21:59)
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
[2020-10-30 14:00] VITALS: BP 129/81
--- NOTE | 2020-10-30 16:13 | IPNPDOC ---
Text Note Date of Service The patient was seen on 10/30/20. NOTE I saw Nadege and her Choco this afternoon along with Suha Willett [facility]. Choco expresses concern that if Nadege goes on hospice she will get septic again and won't be able to have IV antibiotics. Suha spent quite a bit of time talking with them both that it is only a matter of time once she is discharged before she develops another infection. She is frustrated she has not been restarted on suboxone. She is also frustrated that no SNF will be able to accomodate her desire for suboxone for pain management. She was not ready to review a MOLST form, stating "I don't know" to most questions we posed to her. We did discuss the hospice residence vs home care discharge and I explained they would need to have home care arranged in order for her to go home on hospice ( or off hospice ). Nadege stated she has no financial resources to pay for home care at this time. Nadege did seem somewhat interested in being considered for the hospice residence where her family can visit at any time, Choco can spend the night if he wishes to, she can be managed with suboxone ( I checked with them about this last week ). What she and Choco both seem to have difficulty grasping is the concept that hospice care is not curative, but rather focused on her comfort and managing symptoms. Suha and I were with Choco and Nadege for 45 minutes. I am no closer to completing a MOLST form as Nadege seems unable to make any decisions about her health care or plans for her discharge. Suha and I will return tomorrow with some more information about the hospice residence. VS,Fishbone, I+O VS, Fishbone, I+O Laboratory Tests 10/30/20 05:52 Vital Signs Date Time Temp Pulse Resp B/P (MAP) Pulse Ox O2 Delivery O2 Flow Rate FiO2 10/30/20 14:00 98.4 113 16 129/81 (97) 100 Trach Collar 5.0 28 I&O- Last 24 Hours up to 6 AM 10/30/20 06:00 Intake Total 1310 ml Output Total 1550 ml Balance -240 ml Kasey [facility] Oct 30, 2020 16:13
[2020-10-30] MEDS: FERROUS GLUCONATE 324 MG TAB PO SCH (21:55)
[2020-10-30] MEDS: SENOKOT S TAB PO SCH (21:57)
[2020-10-30] MEDS: ATORVASTATIN 20 MG TAB PO SCH (21:58)
[2020-10-30 22:00] VITALS: BP 126/79
[2020-10-30] MEDS: **NOTE PATIENT COMMENT** MISC XX SCH (22:01)
[2020-10-31] MEDS: PIPERACILLIN/TAZOBACTAM SOD 3.375 GM in D5W MINI-BAG PLUS 50 ML IV SCH ×4 (03:54→21:44)
[2020-10-31] MEDS: SODIUM CHLORIDE 0.9% INJ 10 ML SYR IV SCH ×2 (03:55→18:11)
[2020-10-31] MEDS: FUROSEMIDE 40MG/4ML VIAL (J1940) IV SCH ×3 (05:03→21:45)
[2020-10-31] MEDS: LEVOTHYROXINE 50MCG TABLET (0.05MG) PO SCH (05:49)
[2020-10-31 06:00] VITALS: BP 124/78
[2020-10-31 07:25] LABS: HEMATOCRIT 26.1 % (36.0-47.0); MEAN CORPUSCULAR HEMOGLOBIN 28.9 pg (27.0-33.0); MEAN CORPUSCULAR HGB CONC 30.7 g/dl (32.0-36.5); MEAN CORPUSCULAR VOLUME 94.2 fl (80.0-96.0); PLATELET COUNT, AUTOMATED 544 10^3/uL (150-450); RED BLOOD COUNT 2.77 10^6/uL (4.00-5.40)
[2020-10-31 08:05] LABS: ALBUMIN 1.4 GM/DL (3.2-5.2); ALT/SGPT 14 U/L (12-78); BILIRUBIN,TOTAL 0.2 MG/DL (0.2-1.0); BLOOD UREA NITROGEN 22 MG/DL (7-18); C REACTIVE PROTEIN QUANTITATIV 7.98 MG/DL (0.00-0.30); CALCIUM LEVEL 8.1 MG/DL (8.8-10.2); CARBON DIOXIDE LEVEL 34 MEQ/L (21-32); CHLORIDE LEVEL 98 MEQ/L (98-107); CREATININE FOR GFR 0.45 MG/DL (0.55-1.30); GLOMERULAR FILTRATION RATE > 60.0 (>45); GLUCOSE, FASTING 184 MG/DL (70-100); POTASSIUM SERUM 3.7 MEQ/L (3.5-5.1); SODIUM LEVEL 137 MEQ/L (136-145); TOTAL PROTEIN 6.5 GM/DL (6.4-8.2)
[2020-10-31 08:17] LABS: ERYTHROCYTE SEDIMENTATION RATE 126 mm/hr (0-30)
[2020-10-31] MEDS: SUCRALFATE SUSP 1GM/10ML UD PO SCH ×4 (09:28→21:44)
[2020-10-31] MEDS: diazePAM 2 MG TAB PO SCH ×2 (09:29→21:42)
[2020-10-31] MEDS: FOLIC ACID 1 MG TAB PO SCH (09:29)
[2020-10-31] MEDS: LACTULOSE 20 GM/30 ML SYRUP UD PO SCH (09:29)
[2020-10-31] MEDS: POTASSIUM CHLORIDE 10MEQ SR TABLET PO SCH ×2 (09:29→21:46)
[2020-10-31] MEDS: HumaLOG INSULIN (NovoLOG) PER UNIT SC SCH ×4 (09:29→21:00)
[2020-10-31] MEDS: PANTOPRAZOLE 40MG TAB (PROTONIX) PO SCH (09:29)
[2020-10-31] MEDS: GABAPENTIN 300 MG CAP PO SCH ×3 (09:29→21:46)
[2020-10-31] MEDS: CYANOCOBALAMIN 250 MCG TABLET PO SCH (09:31)
[2020-10-31] MEDS: oxyCODONE 5MG TAB PO PRN ×2 (09:31→18:13)
[2020-10-31] MEDS: SOLIFENACIN 5 MG TAB PO SCH (09:31)
[2020-10-31] MEDS: ACETAMINOPHEN 500 MG TAB PO SCH ×3 (09:31→21:45)
[2020-10-31] MEDS: BACLOFEN 5MG PER 1/2 TABLET PO SCH ×3 (09:31→21:46)
[2020-10-31] MEDS: MAGNESIUM OXIDE 400MG TAB (MAG-OX) PO SCH ×2 (09:32→21:45)
[2020-10-31] MEDS: DIAPER RELIEF PASTE (DESITIN) 60GM TOP SCH ×2 (09:32→21:47)
[2020-10-31] MEDS: METOCLOPRAMIDE 10 MG TAB PO PRN ×2 (09:32→18:12)
[2020-10-31] MEDS: hydrOXYzine 25 MG TAB PO PRN ×2 (09:33→18:12)
[2020-10-31] MEDS: NYSTATIN 100,000 UNITS/GM TOPICAL PWD 15 GM TOP SCH ×2 (09:33→21:46)
[2020-10-31] MEDS: ANALGESIC BALM CRM 3OZ TOP SCH ×3 (09:33→21:47)
[2020-10-31] MEDS: LIDOCAINE 5% (LIDODERM) PATCH TD SCH (09:34)
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
[2020-10-31 14:00] VITALS: BP 122/78
--- NOTE | 2020-10-31 16:49 | IPNPDOC ---
Text Note Date of Service The patient was seen on 10/31/20. I saw Nadege along with Suha Willett LMSW from [facility]. Nadege was distresed when we arrived and said she was having abdominal pain. She declined to let me look at her ostomy and stated her pain was more in her midabdomen and that she was nauseated. She then agreed to look at the photos of the hospice residence. She appeared to be interested in the layout and the fact her family could visit any time and her spouse could spend the night. While we were there, Dr. Stallings came into the room and he explained to us and to Nadege that if she wants to have aggressive treatment ( which would be required to manage her decubiti ) then she will need to be compliant with her hospital diet, allow nursing to turn and position her regularly and also made it clear the treatment ( nephrostomy tubes, followed by sp tube at a later date ) would be painful, and would also place her at risk of further infection. He also made it clear that this aggressive treatment may not result in improvement in her extensive decubiti. Alternatively, she could choose the path of having her care focus on comfort and therefore could be managed with suboxone, eat whatever she wants and not be subjected to aggressive procedures. Nadege stated she wanted to think about this for a day. Her Choco arrived while we were disucssing this with Nadege and Dr. Stallings explained all of this to Choco as well in detail. I will return tomorrow to see Nadege and Choco and see what decisions she may have come to at that time. VS,Fishbone, I+O VS, Fishbone, I+O Laboratory Tests 10/31/20 06:48 Vital Signs Date Time Temp Pulse Resp B/P (MAP) Pulse Ox O2 Delivery O2 Flow Rate FiO2 10/31/20 14:00 98.2 103 17 122/78 (93) 97 Trach Collar 5.0 28 I&O- Last 24 Hours up to 6 AM 10/31/20 06:00 Intake Total 1790 ml Output Total 3850 ml Balance -2060 ml Kasey [facility] Oct 31, 2020 16:49
[2020-10-31] MEDS: SENOKOT S TAB PO SCH (21:44)
[2020-10-31] MEDS: FERROUS GLUCONATE 324 MG TAB PO SCH (21:45)
[2020-10-31] MEDS: ATORVASTATIN 20 MG TAB PO SCH (21:46)
[2020-10-31] MEDS: **NOTE PATIENT COMMENT** MISC XX SCH (21:47)
[2020-10-31 22:00] VITALS: BP 120/69
[2020-11-01] MEDS: PIPERACILLIN/TAZOBACTAM SOD 3.375 GM in D5W MINI-BAG PLUS 50 ML IV SCH ×4 (03:47→21:10)
[2020-11-01] MEDS: SODIUM CHLORIDE 0.9% INJ 10 ML SYR IV SCH ×2 (03:47→17:50)
[2020-11-01] MEDS: FUROSEMIDE 40MG/4ML VIAL (J1940) IV SCH ×2 (04:45→21:09)
[2020-11-01] MEDS: LEVOTHYROXINE 50MCG TABLET (0.05MG) PO SCH (05:49)
[2020-11-01 06:00] VITALS: BP 129/71
[2020-11-01 06:47] LABS: HEMATOCRIT 28.6 % (36.0-47.0); HEMOGLOBIN 8.7 g/dl (12.0-15.5); MEAN CORPUSCULAR HEMOGLOBIN 28.8 pg (27.0-33.0); MEAN CORPUSCULAR HGB CONC 30.4 g/dl (32.0-36.5); MEAN CORPUSCULAR VOLUME 94.7 fl (80.0-96.0); PLATELET COUNT, AUTOMATED 546 10^3/uL (150-450); RED BLOOD COUNT 3.02 10^6/uL (4.00-5.40); WHITE BLOOD COUNT 14.3 10^3/uL (4.0-10.0)
[2020-11-01 07:27] LABS: BLOOD UREA NITROGEN 21 MG/DL (7-18); CALCIUM LEVEL 8.8 MG/DL (8.8-10.2); CARBON DIOXIDE LEVEL 34 MEQ/L (21-32); CHLORIDE LEVEL 96 MEQ/L (98-107); GLOMERULAR FILTRATION RATE > 60.0 (>45); GLUCOSE, FASTING 139 MG/DL (70-100); POTASSIUM SERUM 4.3 MEQ/L (3.5-5.1); SODIUM LEVEL 137 MEQ/L (136-145)
[2020-11-01] MEDS: LACTULOSE 20 GM/30 ML SYRUP UD PO SCH (09:40)
[2020-11-01] MEDS: SUCRALFATE SUSP 1GM/10ML UD PO SCH ×4 (09:40→21:09)
[2020-11-01] MEDS: hydrOXYzine 25 MG TAB PO PRN (09:41)
[2020-11-01] MEDS: oxyCODONE 5MG TAB PO PRN (09:41)
[2020-11-01] MEDS: METOCLOPRAMIDE 10 MG TAB PO PRN ×2 (09:41→16:47)
[2020-11-01] MEDS: NYSTATIN 100,000 UNITS/GM TOPICAL PWD 15 GM TOP SCH ×2 (09:41→21:15)
[2020-11-01] MEDS: LIDOCAINE 5% (LIDODERM) PATCH TD SCH (09:41)
[2020-11-01] MEDS: ANALGESIC BALM CRM 3OZ TOP SCH ×3 (09:42→21:14)
[2020-11-01] MEDS: DIAPER RELIEF PASTE (DESITIN) 60GM TOP SCH ×2 (09:42→21:14)
[2020-11-01] MEDS: HumaLOG INSULIN (NovoLOG) PER UNIT SC SCH ×2 (09:43→21:00)
[2020-11-01] MEDS: GABAPENTIN 300 MG CAP PO SCH ×3 (09:43→21:10)
[2020-11-01] MEDS: POTASSIUM CHLORIDE 10MEQ SR TABLET PO SCH ×2 (09:44→21:10)
[2020-11-01] MEDS: MAGNESIUM OXIDE 400MG TAB (MAG-OX) PO SCH ×2 (09:44→21:11)
[2020-11-01] MEDS: diazePAM 2 MG TAB PO SCH ×2 (09:44→21:09)
[2020-11-01] MEDS: ACETAMINOPHEN 500 MG TAB PO SCH ×3 (09:44→21:12)
[2020-11-01] MEDS: CYANOCOBALAMIN 250 MCG TABLET PO SCH (09:45)
[2020-11-01] MEDS: FOLIC ACID 1 MG TAB PO SCH (09:45)
[2020-11-01] MEDS: PANTOPRAZOLE 40MG TAB (PROTONIX) PO SCH (09:45)
[2020-11-01] MEDS: BACLOFEN 5MG PER 1/2 TABLET PO SCH ×3 (09:45→21:12)
[2020-11-01] MEDS: SOLIFENACIN 5 MG TAB PO SCH (09:45)
--- NOTE | 2020-11-01 12:14 | IPNPDOC ---
Text Note Date of Service The patient was seen on 11/01/20. NOTE I saw Nadege today at the bedside. She stated she wanted to have the focus of her care be on comfort rather than aggressive treatment. We reviewed the MOLST form again and she chose to be DNR/DNi/comfort measures only/no feeding tubes. 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 I will return later to give her spouse Choco a copy of the MOLST form and to discuss with him the decisions Nadege made today. 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 MOLST was redone indicating limited medical interventions, signed by myself and [address] Stallings about this. VS,Fishbone, I+O VS, Fishbone, I+O Laboratory Tests 11/01/20 06:16 Vital Signs Date Time Temp Pulse Resp B/P (MAP) Pulse Ox O2 Delivery O2 Flow Rate FiO2 11/01/20 10:25 100 18 100 Trach Collar 5.0 28 11/01/20 06:00 98.2 129/71 (90) I&O- Last 24 Hours up to 6 AM 11/01/20 06:00 Intake Total 2037 ml Output Total 2325 ml Balance -288 ml Kasey [facility] Nov 01, 2020 12:14
[2020-11-01] MEDS ORDERED: BUPRENORPHINE/NALOXONE 2-0.5MG SUBLINGUAL TABLET(SUBOXONE) SL SCH (12:25)
[2020-11-01] MEDS ORDERED: MORPHINE 10MG/0.5ML ORAL CONCENTRATE SOLUTION U/D SL PRN (12:30)
[2020-11-01] MEDS ORDERED: LORazepam 1 MG TAB PO PRN (12:30)
[2020-11-01] MEDS ORDERED: SCOPOLAMINE 1MG TRANSDERMAL PATCH TOP PRN (12:30)
[2020-11-01] MEDS: ONDANSETRON 4 MG TAB PO PRN ×2 (12:46→21:11)
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
[2020-11-01] MEDS ORDERED: GLUCAGON INJ 1MG VIAL SC PRN (20:30)
[2020-11-01] MEDS ORDERED: DEXTROSE 50% 50 ML SYRINGE IV PRN (20:30)
[2020-11-01] MEDS ORDERED: GLUCOSE 4GM CHEW TABLET PO PRN (20:30)
[2020-11-01] MEDS: **NOTE PATIENT COMMENT** MISC XX SCH (21:00)
[2020-11-01] MEDS: SENOKOT S TAB PO SCH (21:09)
[2020-11-01] MEDS: ATORVASTATIN 20 MG TAB PO SCH (21:11)
[2020-11-01 22:00] VITALS: BP 120/84
[2020-11-01 22:56] VITALS: O2SAT 96
[2020-11-02] MEDS: FUROSEMIDE 40MG/4ML VIAL (J1940) IV SCH ×3 (04:49→21:47)
[2020-11-02] MEDS: PIPERACILLIN/TAZOBACTAM SOD 3.375 GM in D5W MINI-BAG PLUS 50 ML IV SCH ×4 (04:49→21:46)
[2020-11-02 06:00] VITALS: BP 138/77
[2020-11-02] MEDS: LEVOTHYROXINE 50MCG TABLET (0.05MG) PO SCH (06:18)
[2020-11-02] MEDS: SODIUM CHLORIDE 0.9% INJ 10 ML SYR IV SCH ×2 (06:19→18:02)
[2020-11-02 06:40] LABS: HEMATOCRIT 30.8 % (36.0-47.0); HEMOGLOBIN 9.2 g/dl (12.0-15.5); MEAN CORPUSCULAR HEMOGLOBIN 28.3 pg (27.0-33.0); MEAN CORPUSCULAR HGB CONC 29.9 g/dl (32.0-36.5); MEAN CORPUSCULAR VOLUME 94.8 fl (80.0-96.0); PLATELET COUNT, AUTOMATED 611 10^3/uL (150-450); RED BLOOD COUNT 3.25 10^6/uL (4.00-5.40); WHITE BLOOD COUNT 14.1 10^3/uL (4.0-10.0)
[2020-11-02 07:00] LABS: BLOOD UREA NITROGEN 18 MG/DL (7-18); CALCIUM LEVEL 8.9 MG/DL (8.8-10.2); CARBON DIOXIDE LEVEL 35 MEQ/L (21-32); CHLORIDE LEVEL 96 MEQ/L (98-107); CREATININE FOR GFR 0.43 MG/DL (0.55-1.30); GLOMERULAR FILTRATION RATE > 60.0 (>45); GLUCOSE, FASTING 118 MG/DL (70-100); POTASSIUM SERUM 4.4 MEQ/L (3.5-5.1); SODIUM LEVEL 137 MEQ/L (136-145)
[2020-11-02 09:00] VITALS: O2SAT 98
[2020-11-02] MEDS: HumaLOG INSULIN (NovoLOG) PER UNIT SC SCH ×4 (09:00→20:28)
[2020-11-02] MEDS: ANALGESIC BALM CRM 3OZ TOP SCH ×3 (09:00→21:49)
[2020-11-02] MEDS: SUCRALFATE SUSP 1GM/10ML UD PO SCH ×4 (09:02→21:47)
[2020-11-02] MEDS: FOLIC ACID 1 MG TAB PO SCH (09:02)
[2020-11-02] MEDS: diazePAM 2 MG TAB PO SCH ×2 (09:03→21:47)
[2020-11-02] MEDS: oxyCODONE 5MG TAB PO PRN ×2 (09:03→17:56)
[2020-11-02] MEDS: ACETAMINOPHEN 500 MG TAB PO SCH ×3 (09:04→21:52)
[2020-11-02] MEDS: POTASSIUM CHLORIDE 10MEQ SR TABLET PO SCH ×2 (09:04→21:48)
[2020-11-02] MEDS: SOLIFENACIN 5 MG TAB PO SCH (09:04)
[2020-11-02] MEDS: LACTULOSE 20 GM/30 ML SYRUP UD PO SCH (09:04)
[2020-11-02] MEDS: GABAPENTIN 300 MG CAP PO SCH ×3 (09:05→21:48)
[2020-11-02] MEDS: BACLOFEN 5MG PER 1/2 TABLET PO SCH ×3 (09:05→21:48)
[2020-11-02] MEDS: MAGNESIUM OXIDE 400MG TAB (MAG-OX) PO SCH ×2 (09:05→21:48)
[2020-11-02] MEDS: CYANOCOBALAMIN 250 MCG TABLET PO SCH (09:05)
[2020-11-02] MEDS: PANTOPRAZOLE 40MG TAB (PROTONIX) PO SCH (09:05)
[2020-11-02] MEDS: LIDOCAINE 5% (LIDODERM) PATCH TD SCH (09:06)
[2020-11-02] MEDS: METOCLOPRAMIDE 10 MG TAB PO PRN (13:04)
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
[2020-11-02 14:00] VITALS: BP 127/73
[2020-11-02] MEDS: ONDANSETRON 4 MG TAB PO PRN (17:55)
[2020-11-02] MEDS: NYSTATIN 100,000 UNITS/GM TOPICAL PWD 15 GM TOP SCH ×2 (17:59→21:51)
[2020-11-02] MEDS: DIAPER RELIEF PASTE (DESITIN) 60GM TOP SCH ×2 (17:59→21:47)
[2020-11-02] MEDS: SENOKOT S TAB PO SCH (21:47)
[2020-11-02] MEDS: ATORVASTATIN 20 MG TAB PO SCH (21:47)
[2020-11-02] MEDS: PREGABALIN 100 MG CAP (LYRICA) PO SCH (21:48)
[2020-11-02] MEDS: **NOTE PATIENT COMMENT** MISC XX SCH (21:50)
[2020-11-02 22:00] VITALS: BP 123/63
[2020-11-02] MEDS: SODIUM CHLORIDE 0.9% INJ 10 ML SYR IV PRN (23:09)
[2020-11-03] MEDS: PIPERACILLIN/TAZOBACTAM SOD 3.375 GM in D5W MINI-BAG PLUS 50 ML IV SCH ×4 (04:32→21:24)
[2020-11-03] MEDS: SODIUM CHLORIDE 0.9% INJ 10 ML SYR IV SCH ×2 (05:55→17:14)
[2020-11-03] MEDS: FUROSEMIDE 40MG/4ML VIAL (J1940) IV SCH ×3 (05:55→21:23)
[2020-11-03] MEDS: LEVOTHYROXINE 50MCG TABLET (0.05MG) PO SCH (05:55)
[2020-11-03 06:00] VITALS: BP 131/70
[2020-11-03 06:53] LABS: HEMATOCRIT 29.8 % (36.0-47.0); HEMOGLOBIN 9.1 g/dl (12.0-15.5); MEAN CORPUSCULAR HEMOGLOBIN 28.8 pg (27.0-33.0); MEAN CORPUSCULAR HGB CONC 30.5 g/dl (32.0-36.5); MEAN CORPUSCULAR VOLUME 94.3 fl (80.0-96.0); PLATELET COUNT, AUTOMATED 563 10^3/uL (150-450); RED BLOOD COUNT 3.16 10^6/uL (4.00-5.40)
[2020-11-03 07:26] LABS: BLOOD UREA NITROGEN 17 MG/DL (7-18); CALCIUM LEVEL 8.4 MG/DL (8.8-10.2); CARBON DIOXIDE LEVEL 34 MEQ/L (21-32); CHLORIDE LEVEL 95 MEQ/L (98-107); CREATININE FOR GFR 0.43 MG/DL (0.55-1.30); GLOMERULAR FILTRATION RATE > 60.0 (>45); GLUCOSE, FASTING 110 MG/DL (70-100); POTASSIUM SERUM 4.3 MEQ/L (3.5-5.1); SODIUM LEVEL 135 MEQ/L (136-145)
[2020-11-03] MEDS: LACTULOSE 20 GM/30 ML SYRUP UD PO SCH (09:07)
[2020-11-03] MEDS: HumaLOG INSULIN (NovoLOG) PER UNIT SC SCH ×4 (09:07→21:00)
[2020-11-03] MEDS: SUCRALFATE SUSP 1GM/10ML UD PO SCH ×4 (09:07→21:22)
[2020-11-03] MEDS: PANTOPRAZOLE 40MG TAB (PROTONIX) PO SCH (09:08)
[2020-11-03] MEDS: SOLIFENACIN 5 MG TAB PO SCH (09:08)
[2020-11-03] MEDS: diazePAM 2 MG TAB PO SCH ×2 (09:08→21:24)
[2020-11-03] MEDS: LIDOCAINE 5% (LIDODERM) PATCH TD SCH (09:09)
[2020-11-03] MEDS: FOLIC ACID 1 MG TAB PO SCH (09:09)
[2020-11-03] MEDS: POTASSIUM CHLORIDE 10MEQ SR TABLET PO SCH ×2 (09:09→21:22)
[2020-11-03] MEDS: GABAPENTIN 300 MG CAP PO SCH ×3 (09:09→21:24)
[2020-11-03] MEDS: MAGNESIUM OXIDE 400MG TAB (MAG-OX) PO SCH ×2 (09:09→21:24)
[2020-11-03] MEDS: PREGABALIN 100 MG CAP (LYRICA) PO SCH ×2 (09:09→21:24)
[2020-11-03] MEDS: CYANOCOBALAMIN 250 MCG TABLET PO SCH (09:09)
[2020-11-03] MEDS: BACLOFEN 5MG PER 1/2 TABLET PO SCH ×3 (09:09→21:22)
[2020-11-03] MEDS: ANALGESIC BALM CRM 3OZ TOP SCH ×3 (09:10→21:26)
[2020-11-03] MEDS: DIAPER RELIEF PASTE (DESITIN) 60GM TOP SCH ×2 (09:10→21:26)
[2020-11-03] MEDS: oxyCODONE 5MG TAB PO PRN ×2 (09:10→17:12)
[2020-11-03] MEDS: ACETAMINOPHEN 500 MG TAB PO SCH ×3 (09:11→21:23)
[2020-11-03] MEDS: NYSTATIN 100,000 UNITS/GM TOPICAL PWD 15 GM TOP SCH ×2 (09:16→21:25)
[2020-11-03] MEDS: METOCLOPRAMIDE 10 MG TAB PO PRN (09:17)
[2020-11-03] MEDS: SODIUM CHLORIDE 0.9% INJ 10 ML SYR IV PRN ×2 (13:23→23:06)
[2020-11-03 14:00] VITALS: BP 113/66
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
[2020-11-03] MEDS: ONDANSETRON 4 MG TAB PO PRN (17:31)
[2020-11-03] MEDS: SENOKOT S TAB PO SCH (21:22)
[2020-11-03] MEDS: ATORVASTATIN 20 MG TAB PO SCH (21:23)
[2020-11-03] MEDS: **NOTE PATIENT COMMENT** MISC XX SCH (21:26)
[2020-11-03 22:00] VITALS: BP 112/68
[2020-11-04] MEDS: PIPERACILLIN/TAZOBACTAM SOD 3.375 GM in D5W MINI-BAG PLUS 50 ML IV SCH ×4 (04:51→21:57)
[2020-11-04] MEDS: oxyCODONE 5MG TAB PO PRN ×3 (05:00→17:20)
[2020-11-04 06:00] VITALS: BP 122/80
[2020-11-04] MEDS: ONDANSETRON 4 MG TAB PO PRN ×2 (06:08→22:36)
[2020-11-04] MEDS: FUROSEMIDE 40MG/4ML VIAL (J1940) IV SCH ×3 (06:08→21:56)
[2020-11-04] MEDS: LEVOTHYROXINE 50MCG TABLET (0.05MG) PO SCH (06:08)
[2020-11-04] MEDS: SODIUM CHLORIDE 0.9% INJ 10 ML SYR IV SCH ×2 (06:09→17:14)
[2020-11-04 06:20] LABS: HEMATOCRIT 28.7 % (36.0-47.0); HEMOGLOBIN 8.8 g/dl (12.0-15.5); MEAN CORPUSCULAR HEMOGLOBIN 28.9 pg (27.0-33.0); MEAN CORPUSCULAR HGB CONC 30.7 g/dl (32.0-36.5); MEAN CORPUSCULAR VOLUME 94.1 fl (80.0-96.0); PLATELET COUNT, AUTOMATED 542 10^3/uL (150-450); RED BLOOD COUNT 3.05 10^6/uL (4.00-5.40); WHITE BLOOD COUNT 12.4 10^3/uL (4.0-10.0)
[2020-11-04 06:36] LABS: BLOOD UREA NITROGEN 18 MG/DL (7-18); CALCIUM LEVEL 8.3 MG/DL (8.8-10.2); CARBON DIOXIDE LEVEL 35 MEQ/L (21-32); CHLORIDE LEVEL 97 MEQ/L (98-107); CREATININE FOR GFR 0.42 MG/DL (0.55-1.30); GLOMERULAR FILTRATION RATE > 60.0 (>45); GLUCOSE, FASTING 129 MG/DL (70-100); POTASSIUM SERUM 4.1 MEQ/L (3.5-5.1); SODIUM LEVEL 136 MEQ/L (136-145)
[2020-11-04] MEDS: NYSTATIN 100,000 UNITS/GM TOPICAL PWD 15 GM TOP SCH ×2 (09:00→21:57)
[2020-11-04] MEDS: ANALGESIC BALM CRM 3OZ TOP SCH ×3 (09:00→21:58)
[2020-11-04] MEDS: SUCRALFATE SUSP 1GM/10ML UD PO SCH ×4 (09:00→21:55)
[2020-11-04] MEDS: HumaLOG INSULIN (NovoLOG) PER UNIT SC SCH ×4 (09:00→21:00)
[2020-11-04] MEDS: LACTULOSE 20 GM/30 ML SYRUP UD PO SCH (09:00)
[2020-11-04] MEDS ORDERED: PILL CUTTER 1 EACH XX PRN (09:00)
[2020-11-04] MEDS: MAGNESIUM OXIDE 400MG TAB (MAG-OX) PO SCH ×2 (09:01→21:55)
[2020-11-04] MEDS: DIAPER RELIEF PASTE (DESITIN) 60GM TOP SCH ×2 (09:01→21:57)
[2020-11-04] MEDS: SOLIFENACIN 5 MG TAB PO SCH (09:02)
[2020-11-04] MEDS: GABAPENTIN 300 MG CAP PO SCH ×3 (09:02→21:56)
[2020-11-04] MEDS: PREGABALIN 100 MG CAP (LYRICA) PO SCH ×2 (09:02→21:55)
[2020-11-04] MEDS: PANTOPRAZOLE 40MG TAB (PROTONIX) PO SCH (09:02)
[2020-11-04] MEDS: CYANOCOBALAMIN 250 MCG TABLET PO SCH ×2 (09:03→17:15)
[2020-11-04] MEDS: BACLOFEN 5MG PER 1/2 TABLET PO SCH ×3 (09:03→21:55)
[2020-11-04] MEDS: LIDOCAINE 5% (LIDODERM) PATCH TD SCH (09:03)
[2020-11-04] MEDS: FOLIC ACID 1 MG TAB PO SCH (09:03)
[2020-11-04] MEDS: POTASSIUM CHLORIDE 10MEQ SR TABLET PO SCH ×2 (09:03→21:56)
[2020-11-04] MEDS: ACETAMINOPHEN 500 MG TAB PO SCH ×3 (09:06→21:56)
[2020-11-04] MEDS: diazePAM 2 MG TAB PO SCH ×2 (11:03→21:55)
[2020-11-04] MEDS: SODIUM CHLORIDE 0.9% INJ 10 ML SYR IV PRN (11:04)
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
[2020-11-04 14:00] VITALS: BP 140/78
[2020-11-04] MEDS: **NOTE PATIENT COMMENT** MISC XX SCH (21:00)
[2020-11-04] MEDS: ATORVASTATIN 20 MG TAB PO SCH (21:55)
[2020-11-04] MEDS: SENOKOT S TAB PO SCH (21:55)
[2020-11-04 22:00] VITALS: BP 109/91
[2020-11-05 00:35] VITALS: O2SAT 97
[2020-11-05] MEDS: FUROSEMIDE 40MG/4ML VIAL (J1940) IV SCH ×3 (04:38→21:48)
[2020-11-05] MEDS: PIPERACILLIN/TAZOBACTAM SOD 3.375 GM in D5W MINI-BAG PLUS 50 ML IV SCH ×4 (04:38→21:49)
[2020-11-05 05:50] LABS: HEMATOCRIT 28.1 % (36.0-47.0); HEMOGLOBIN 8.6 g/dl (12.0-15.5); MEAN CORPUSCULAR HEMOGLOBIN 28.9 pg (27.0-33.0); MEAN CORPUSCULAR HGB CONC 30.6 g/dl (32.0-36.5); MEAN CORPUSCULAR VOLUME 94.3 fl (80.0-96.0); PLATELET COUNT, AUTOMATED 567 10^3/uL (150-450); RED BLOOD COUNT 2.98 10^6/uL (4.00-5.40); WHITE BLOOD COUNT 11.2 10^3/uL (4.0-10.0)
[2020-11-05 06:00] VITALS: BP 109/63
[2020-11-05] MEDS: SODIUM CHLORIDE 0.9% INJ 10 ML SYR IV SCH ×2 (06:07→16:53)
[2020-11-05] MEDS: LEVOTHYROXINE 50MCG TABLET (0.05MG) PO SCH (06:07)
[2020-11-05] MEDS: oxyCODONE 5MG TAB PO PRN ×2 (06:10→21:51)
[2020-11-05 06:16] LABS: BLOOD UREA NITROGEN 18 MG/DL (7-18); CALCIUM LEVEL 8.1 MG/DL (8.8-10.2); CARBON DIOXIDE LEVEL 35 MEQ/L (21-32); CHLORIDE LEVEL 96 MEQ/L (98-107); GLOMERULAR FILTRATION RATE > 60.0 (>45); GLUCOSE, FASTING 131 MG/DL (70-100); POTASSIUM SERUM 3.6 MEQ/L (3.5-5.1); SODIUM LEVEL 136 MEQ/L (136-145)
--- NOTE | 2020-11-05 06:44 | REPVR ---
PROCEDURE INFORMATION: Exam: US Duplex Right Upper Extremity Veins, Limited Exam date and time: 11/05/2020 5:54 AM Age: 65 years old Clinical indication: Condition or disease; Embolism or thrombosis; Upper extremity, right; Additional info: Re-evaluation, previous dvt on right upper extremity TECHNIQUE: Imaging protocol: Real-time Duplex ultrasound of the Right Upper Extremity with 2-D hernandez scale, color Doppler flow and spectral waveform analysis with image documentation. Limited exam focused on the right upper extremity veins. COMPARISON: US DUPLEX EXT UPPER VEINS BILAT 10/07/2020 1:02 PM FINDINGS: The exam is somewhat limited secondary to bandaging overlying the mid-right upper arm. Right deep veins: Unremarkable. Axillary and brachial veins are patent throughout without thrombus. Normal Doppler waveforms. Normal compressibility and/or augmentation response. Visualized right subclavian vein is patent. Incidental note is made of a patent left subclavian vein. Right superficial veins: Unremarkable. Visualized cephalic and basilic veins are patent without thrombus. Soft tissues: Unremarkable. IMPRESSION: 1. No evidence of deep vein thrombosis in the right upper extremity. The exam is somewhat limited however, secondary to bandaging overlying a portion of the mid-right upper arm. 2. Incidental note is made of a patent left subclavian vein. Electronically signed by: John Hunter On 11/05/2020 06:44:06 AM
[2020-11-05] MEDS: PANTOPRAZOLE 40MG TAB (PROTONIX) PO SCH (10:14)
[2020-11-05] MEDS: BACLOFEN 5MG PER 1/2 TABLET PO SCH ×3 (10:14→21:49)
[2020-11-05] MEDS: LACTULOSE 20 GM/30 ML SYRUP UD PO SCH (10:14)
[2020-11-05] MEDS: SOLIFENACIN 5 MG TAB PO SCH (10:14)
[2020-11-05] MEDS: SUCRALFATE SUSP 1GM/10ML UD PO SCH ×4 (10:14→21:48)
[2020-11-05] MEDS: GABAPENTIN 300 MG CAP PO SCH ×3 (10:15→21:48)
[2020-11-05] MEDS: diazePAM 2 MG TAB PO SCH ×2 (10:15→21:50)
[2020-11-05] MEDS: PREGABALIN 100 MG CAP (LYRICA) PO SCH ×2 (10:15→21:49)
[2020-11-05] MEDS: POTASSIUM CHLORIDE 10MEQ SR TABLET PO SCH ×2 (10:15→21:49)
[2020-11-05] MEDS: CYANOCOBALAMIN 250 MCG TABLET PO SCH (10:15)
[2020-11-05] MEDS: FOLIC ACID 1 MG TAB PO SCH (10:16)
[2020-11-05] MEDS: MAGNESIUM OXIDE 400MG TAB (MAG-OX) PO SCH ×2 (10:16→21:50)
[2020-11-05] MEDS: ACETAMINOPHEN 500 MG TAB PO SCH ×3 (10:16→21:50)
[2020-11-05] MEDS: HumaLOG INSULIN (NovoLOG) PER UNIT SC SCH ×4 (10:16→21:00)
[2020-11-05] MEDS: DIAPER RELIEF PASTE (DESITIN) 60GM TOP SCH ×2 (10:17→21:50)
[2020-11-05] MEDS: NYSTATIN 100,000 UNITS/GM TOPICAL PWD 15 GM TOP SCH ×2 (10:17→21:50)
[2020-11-05] MEDS: ANALGESIC BALM CRM 3OZ TOP SCH ×3 (10:18→21:50)
[2020-11-05] MEDS: LIDOCAINE 5% (LIDODERM) PATCH TD SCH (10:18)
[2020-11-05] MEDS: ONDANSETRON 4 MG TAB PO PRN (10:24)
[2020-11-05 14:00] VITALS: BP 126/77
[2020-11-05] MEDS: **NOTE PATIENT COMMENT** MISC XX SCH (21:00)
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
[2020-11-05] MEDS: ATORVASTATIN 20 MG TAB PO SCH (21:48)
[2020-11-05] MEDS: SENOKOT S TAB PO SCH (21:48)
[2020-11-05 22:00] VITALS: BP 129/74
[2020-11-06] MEDS: PIPERACILLIN/TAZOBACTAM SOD 3.375 GM in D5W MINI-BAG PLUS 50 ML IV SCH ×2 (04:06→09:46)
[2020-11-06] MEDS: FUROSEMIDE 40MG/4ML VIAL (J1940) IV SCH ×2 (04:06→14:18)
[2020-11-06 04:43] VITALS: O2SAT 96
[2020-11-06] MEDS: LEVOTHYROXINE 50MCG TABLET (0.05MG) PO SCH (05:45)
[2020-11-06] MEDS: oxyCODONE 5MG TAB PO PRN ×2 (05:45→22:05)
[2020-11-06] MEDS: SODIUM CHLORIDE 0.9% INJ 10 ML SYR IV SCH ×2 (05:46→17:07)
[2020-11-06 06:00] VITALS: BP 120/69
[2020-11-06 06:23] LABS: HEMATOCRIT 28.5 % (36.0-47.0); HEMOGLOBIN 8.5 g/dl (12.0-15.5); MEAN CORPUSCULAR HEMOGLOBIN 28.3 pg (27.0-33.0); MEAN CORPUSCULAR HGB CONC 29.8 g/dl (32.0-36.5); PLATELET COUNT, AUTOMATED 528 10^3/uL (150-450); WHITE BLOOD COUNT 13.3 10^3/uL (4.0-10.0)
[2020-11-06 06:45] LABS: BLOOD UREA NITROGEN 15 MG/DL (7-18); CALCIUM LEVEL 8.2 MG/DL (8.8-10.2); CARBON DIOXIDE LEVEL 36 MEQ/L (21-32); CHLORIDE LEVEL 97 MEQ/L (98-107); CREATININE FOR GFR 0.47 MG/DL (0.55-1.30); GLOMERULAR FILTRATION RATE > 60.0 (>45); GLUCOSE, FASTING 178 MG/DL (70-100); POTASSIUM SERUM 3.5 MEQ/L (3.5-5.1); SODIUM LEVEL 138 MEQ/L (136-145)
[2020-11-06] MEDS: ACETAMINOPHEN 500 MG TAB PO SCH ×2 (09:00→16:00)
[2020-11-06] MEDS: SUCRALFATE SUSP 1GM/10ML UD PO SCH ×4 (09:45→22:03)
[2020-11-06] MEDS: NYSTATIN 100,000 UNITS/GM TOPICAL PWD 15 GM TOP SCH ×2 (09:46→22:06)
[2020-11-06] MEDS: DIAPER RELIEF PASTE (DESITIN) 60GM TOP SCH ×2 (09:46→22:06)
[2020-11-06] MEDS: diazePAM 2 MG TAB PO SCH ×2 (09:47→22:03)
[2020-11-06] MEDS: LACTULOSE 20 GM/30 ML SYRUP UD PO SCH ×2 (09:47→10:34)
[2020-11-06] MEDS: HumaLOG INSULIN (NovoLOG) PER UNIT SC SCH ×4 (09:47→21:00)
[2020-11-06] MEDS: PREGABALIN 100 MG CAP (LYRICA) PO SCH ×2 (09:48→22:05)
[2020-11-06] MEDS: FOLIC ACID 1 MG TAB PO SCH ×2 (09:48→10:34)
[2020-11-06] MEDS: PANTOPRAZOLE 40MG TAB (PROTONIX) PO SCH ×2 (09:48→10:35)
[2020-11-06] MEDS: MAGNESIUM OXIDE 400MG TAB (MAG-OX) PO SCH ×3 (09:48→22:05)
[2020-11-06] MEDS: POTASSIUM CHLORIDE 10MEQ SR TABLET PO SCH ×3 (09:48→22:03)
[2020-11-06] MEDS: BACLOFEN 5MG PER 1/2 TABLET PO SCH ×4 (09:48→22:04)
[2020-11-06] MEDS: GABAPENTIN 300 MG CAP PO SCH ×4 (09:48→22:04)
[2020-11-06] MEDS: CYANOCOBALAMIN 250 MCG TABLET PO SCH ×2 (09:48→10:35)
[2020-11-06] MEDS: SOLIFENACIN 5 MG TAB PO SCH ×2 (09:49→10:35)
[2020-11-06] MEDS: ANALGESIC BALM CRM 3OZ TOP SCH ×3 (10:31→22:07)
[2020-11-06] MEDS: LIDOCAINE 5% (LIDODERM) PATCH TD SCH (10:31)
--- NOTE | 2020-11-06 10:47 | REP ---
INDICATION: SOB, desaturating. COMPARISON: 10/08/2020. TECHNIQUE: Single portable AP view of the chest was performed. FINDINGS: There is moderate elevation of the right hemidiaphragm unchanged. There is stable linear fibro atelectatic change in the right lung base. There is new patchy infiltrate/atelectasis in the left lung base. The heart and mediastinum are unchanged. Right arm PICC line is unchanged in position. A tracheostomy tube is again noted as well as rods and screws in the upper thoracic spine. IMPRESSION: New patchy infiltrate/atelectasis left lung base. <Electronically signed by Bishop Hull > 11/06/20 1049
[2020-11-06 13:21] LABS: ABG BASE EXCESS 9.6 (-2.0-2.0); ABG HCO3 34.9 MEQ/L (22.0-26.0); ABG O2 SATURATION 96.9 % (95.0-99.0); ABG PARTIAL PRESSURE O2 89.5 mmHg (75.0-100.0); ABG STANDARD HCO3 33.3 MEQ/L (22.0-26.0); ABG TOTAL CO2 36.5 MEQ/L (23.0-31.0); ABG pH (ARTERIAL) 7.445 UNITS (7.350-7.450)
[2020-11-06 14:00] VITALS: BP 134/63
[2020-11-06] MEDS ORDERED: ISOVUE-370 76% 100ML VIAL As Ordered ONE (15:33)
[2020-11-06 15:55] LABS: BASO % 0.4 % (0.0-1.0); EOS % 4.7 % (0.0-3.0); HEMATOCRIT 30.4 % (36.0-47.0); HEMOGLOBIN 9.4 g/dl (12.0-15.5); LYMPH % 4.9 % (24.0-44.0); MEAN CORPUSCULAR HEMOGLOBIN 28.7 pg (27.0-33.0); MEAN CORPUSCULAR HGB CONC 30.9 g/dl (32.0-36.5); MEAN CORPUSCULAR VOLUME 92.7 fl (80.0-96.0); MONO % 6.6 % (2.0-8.0); NEUTROPHILS % 82.4 % (36.0-66.0); PLATELET COUNT, AUTOMATED 570 10^3/uL (150-450); RED BLOOD COUNT 3.28 10^6/uL (4.00-5.40)
[2020-11-06 15:56] LABS: BASO # 0.1 10^3/uL (0.0-0.2); EOS # 1.1 10^3/uL (0.0-0.5); LYMPH # 1.1 10^3/uL (1.5-5.0); MONO # 1.5 10^3/uL (0.0-0.8)
[2020-11-06 15:59] LABS: WHITE BLOOD COUNT 23.1 10^3/uL (4.0-10.0)
[2020-11-06] MEDS ORDERED: SODIUM CHLORIDE 0.9% 1000ML IV ONE ×2 (16:25→16:45)
[2020-11-06 16:29] LABS: ALT/SGPT 21 U/L (12-78); BILIRUBIN,TOTAL 0.3 MG/DL (0.2-1.0); BLOOD UREA NITROGEN 14 MG/DL (7-18); CALCIUM LEVEL 8.4 MG/DL (8.8-10.2); CARBON DIOXIDE LEVEL 37 MEQ/L (21-32); CHLORIDE LEVEL 95 MEQ/L (98-107); CREATININE FOR GFR 0.49 MG/DL (0.55-1.30); GLOMERULAR FILTRATION RATE > 60.0 (>45); GLUCOSE, FASTING 168 MG/DL (70-100); MAGNESIUM LEVEL 2.1 MG/DL (1.8-2.4); POTASSIUM SERUM 4.1 MEQ/L (3.5-5.1); SODIUM LEVEL 136 MEQ/L (136-145); TOTAL PROTEIN 6.9 GM/DL (6.4-8.2); TROPONIN I < 0.02 NG/ML (< 0.10)
[2020-11-06] MEDS ORDERED: ACETAMINOPHEN TAB 650MG DOSE (2X325MG) PO PRN (18:15)
[2020-11-06] MEDS: MEROPENEM INJ 1 GM in IV 1 EA IV SCH (18:25)
[2020-11-06] MEDS: VANCOMYCIN HCL 1,000 MG, VIAL MATE ADAPTER 1 EACH in NS 250 ML IV SCH ×2 (20:12→22:03)
[2020-11-06] MEDS: **NOTE PATIENT COMMENT** MISC XX SCH (21:00)
--- NOTE | 2020-11-06 21:12 | REPVR ---
PROCEDURE INFORMATION: Exam: CTA Chest With Contrast Exam date and time: 11/06/2020 4:30 PM Age: 65 years old Clinical indication: Other: Pneumonia, tachycardia TECHNIQUE: Imaging protocol: Computed tomographic angiography of the chest with contrast. 3D rendering (Not supervised by radiologist): MIP and/or 3D reconstructed images were created by the technologist. Radiation optimization: All CT scans at this facility use at least one of these dose optimization techniques: automated exposure control; mA and/or kV adjustment per patient size (includes targeted exams where dose is matched to clinical indication); or iterative reconstruction. Contrast material: ISOVUE 370; Contrast volume: 75 ml; Contrast route: INTRAVENOUS (IV); COMPARISON: CT ANGIO CHEST 04/14/2020 1:52 PM FINDINGS: Tubes, catheters and devices: Tracheostomy tube in position above the faraz. Right PICC line to the mid superior vena cava. Pulmonary arteries: The main pulmonary artery measures 44 mm. No gross central pulmonary embolism is identified. Aorta: The ascending thoracic aorta measures 35 mm. Lungs: Bilateral lower lobe infiltrates and consolidation. There is complete fibro-atelectatic change of the right middle lobe Motion artifact in the lungs with image degradation. Pleural spaces: Unremarkable. No pneumothorax. No pleural effusion. Heart: Unremarkable. No cardiomegaly. No pericardial effusion. Lymph nodes: Unremarkable. No enlarged lymph nodes. Gallbladder and bile ducts: Status post cholecystectomy. Bones/joints: Thoracic fusion which spans widening of the interspace at T4-T5 with retrolisthesis of T4 relative to T5 with lack of contact of the articular facets. Soft tissues: Unremarkable. IMPRESSION: 1. Bilateral lower lobe infiltrates and consolidation which is similar to 04/14/2020. There is also complete atelectasis of the right middle lobe which is also similar. 2. Status post upper thoracic fusion spanning apparent disassociation at T4-T5 which is similar. 3. Right PICC line to the mid superior vena cava. 4. Status post cholecystectomy. 5. Enlarged main pulmonary artery measuring 44 mm which may be seen with pulmonary hypertension. 6. Motion artifact with image degradation in the lungs. No gross central pulmonary embolism is identified. Electronically signed by: Sg Ann On 11/06/2020 21:12:16 PM
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
[2020-11-06 22:00] VITALS: BP 116/59
[2020-11-06] MEDS: ATORVASTATIN 20 MG TAB PO SCH (22:04)
[2020-11-06] MEDS: SENOKOT S TAB PO SCH (22:04)
[2020-11-06] MEDS: ENOXAPARIN 150MG/ML SYRINGE (J1650 PER 10MG) SC SCH (22:06)
[2020-11-06 23:30] VITALS: O2SAT 63
[2020-11-07] MEDS: MEROPENEM INJ 1 GM in IV 1 EA IV SCH ×3 (00:54→18:21)
[2020-11-07] MEDS: oxyCODONE 5MG TAB PO PRN ×2 (04:50→18:20)
[2020-11-07] MEDS: ONDANSETRON 4 MG TAB PO PRN (05:41)
[2020-11-07] MEDS: LEVOTHYROXINE 50MCG TABLET (0.05MG) PO SCH (05:41)
[2020-11-07] MEDS: VANCOMYCIN HCL 1,000 MG, VIAL MATE ADAPTER 1 EACH in NS 250 ML IV SCH ×2 (05:41→19:48)
[2020-11-07] MEDS: SODIUM CHLORIDE 0.9% INJ 10 ML SYR IV SCH ×2 (05:42→18:22)
[2020-11-07 06:00] VITALS: BP 152/79
[2020-11-07 06:39] LABS: HEMATOCRIT 27.5 % (36.0-47.0); HEMOGLOBIN 8.4 g/dl (12.0-15.5); MEAN CORPUSCULAR HEMOGLOBIN 28.8 pg (27.0-33.0); MEAN CORPUSCULAR HGB CONC 30.5 g/dl (32.0-36.5); MEAN CORPUSCULAR VOLUME 94.2 fl (80.0-96.0); PLATELET COUNT, AUTOMATED 512 10^3/uL (150-450); RED BLOOD COUNT 2.92 10^6/uL (4.00-5.40); WHITE BLOOD COUNT 20.9 10^3/uL (4.0-10.0)
[2020-11-07 07:01] LABS: BLOOD UREA NITROGEN 12 MG/DL (7-18); CALCIUM LEVEL 8.6 MG/DL (8.8-10.2); CARBON DIOXIDE LEVEL 35 MEQ/L (21-32); CHLORIDE LEVEL 97 MEQ/L (98-107); CREATININE FOR GFR 0.44 MG/DL (0.55-1.30); GLOMERULAR FILTRATION RATE > 60.0 (>45); GLUCOSE, FASTING 141 MG/DL (70-100); POTASSIUM SERUM 3.6 MEQ/L (3.5-5.1); SODIUM LEVEL 135 MEQ/L (136-145)
--- NOTE | 2020-11-07 08:59 | IPN ---
PROGRESS NOTE DATE: 11/06/2020 SUBJECTIVE: I was asked to see Nadege because she was having increased shortness of breath and tachycardia. I discussed the case with Dr. Cunningham. Nadege was seen and she complains of increasing shortness of breath and some increased congestion. Her nurse, BEKAH Boone, was also concerned about her congestion and a lot of rhonchorous sounds. Her sacral decubitus ulcers were changed this morning and so I was not able to see them today, but according to nursing there has been no change; therefore, for the most part clean, but not healing. OBJECTIVE: VITAL SIGNS: Temperature 98.5, pulse 130, respirations 22, blood pressure 134/63, O2 saturation 91% on 40% FiO2, which is an increase from her 28%. HEART: Normal S1, S2. Tachycardic. No murmurs appreciated. LUNGS: Diffuse expiratory rhonchi bilaterally. The patient has a cough. ABDOMEN: Soft, nontender, and obese. Left lower quadrant colostomy with no stools in the bag. No redness or erythema around the wound. EXTREMITIES: +2 pitting edema bilaterally. Right upper arm biceps PICC line with no redness or drainage. LABORATORY DATA: White count 23.1, hemoglobin 9.4, hematocrit 30.4, platelets 570,000, neutrophils 82%, lymphocytes 5%, monocytes 6%. Sodium 136, potassium 4.1, chloride 95, bicarb 37, BUN 14, creatinine 0.49, glucose 168. Lactic acid 2.4. Calcium 8.4, magnesium 2.1, AST 33, ALT 21, alkaline phosphatase 164. IMAGING DATA: Chest x-ray showed a new patchy infiltrate at the left lung base. A CT angiogram was also done that is not read yet. IMPRESSION/PLAN: 1. Pneumonia with dyspnea, tachycardia, new patchy infiltrates left lung base on chest x-ray. This is hospital-acquired pneumonia. The patient has been on IV Zosyn for osteomyelitis of the right ischium since 10/02 for the past month. Pathogens that would not be covered would include extended-spectrum beta-lactamase (ESBL) and methicillin-resistant Staphylococcus aureus (MRSA) and therefore, I would suggest switching to IV vancomycin and meropenem. 2. Right arm peripherally inserted central catheter (PICC) line; rule out line infection. Could keep the line in unless she has bacteremia, then the line will need to be removed; but for the meantime since she has no other access, I would continue with the PICC line. 3. Ischial osteomyelitis. Has been on IV Zosyn for the past month. With Zosyn, the wounds are clean, but not healing. The plan is to discontinue IV Zosyn and switch to vancomycin 1 gram q. 12 hours with meropenem 1 gram IV q. 8 hours. Obtain blood cultures and two sets of sputum culture. The case has been discussed with Dr. Cunningham of the hospitalist service. Will also discuss with Dr. Reed if he can do a wound consult on her weekly as if she was an outpatient to help with wound healing.
[2020-11-07] MEDS: LACTULOSE 20 GM/30 ML SYRUP UD PO SCH (10:09)
[2020-11-07] MEDS: SUCRALFATE SUSP 1GM/10ML UD PO SCH ×4 (10:09→22:14)
[2020-11-07] MEDS: MAGNESIUM OXIDE 400MG TAB (MAG-OX) PO SCH ×2 (10:11→22:14)
[2020-11-07] MEDS: ENOXAPARIN 150MG/ML SYRINGE (J1650 PER 10MG) SC SCH ×2 (10:11→22:17)
[2020-11-07] MEDS: LIDOCAINE 5% (LIDODERM) PATCH TD SCH (10:11)
[2020-11-07] MEDS: GABAPENTIN 300 MG CAP PO SCH ×3 (10:12→22:14)
[2020-11-07] MEDS: PANTOPRAZOLE 40MG TAB (PROTONIX) PO SCH (10:12)
[2020-11-07] MEDS: FOLIC ACID 1 MG TAB PO SCH (10:12)
[2020-11-07] MEDS: PREGABALIN 100 MG CAP (LYRICA) PO SCH ×2 (10:12→22:15)
[2020-11-07] MEDS: SOLIFENACIN 5 MG TAB PO SCH (10:12)
[2020-11-07] MEDS: POTASSIUM CHLORIDE 10MEQ SR TABLET PO SCH ×2 (10:12→22:15)
[2020-11-07] MEDS: diazePAM 2 MG TAB PO SCH ×2 (10:13→22:16)
[2020-11-07] MEDS: DIAPER RELIEF PASTE (DESITIN) 60GM TOP SCH ×2 (10:13→22:16)
[2020-11-07] MEDS: NYSTATIN 100,000 UNITS/GM TOPICAL PWD 15 GM TOP SCH ×2 (10:14→22:16)
[2020-11-07] MEDS: ANALGESIC BALM CRM 3OZ TOP SCH ×3 (10:14→20:07)
[2020-11-07] MEDS: HumaLOG INSULIN (NovoLOG) PER UNIT SC SCH ×4 (10:15→21:00)
[2020-11-07] MEDS: CYANOCOBALAMIN 250 MCG TABLET PO SCH (10:46)
[2020-11-07] MEDS: BACLOFEN 5MG PER 1/2 TABLET PO SCH ×3 (10:46→22:14)
[2020-11-07 14:00] VITALS: BP 107/77
[2020-11-07 15:02] VITALS: O2SAT 98
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
[2020-11-07 20:01] LABS: BASO # 0.1 10^3/uL (0.0-0.2); BASO % 0.5 % (0.0-1.0); EOS # 1.7 10^3/uL (0.0-0.5); EOS % 9.6 % (0.0-3.0); HEMATOCRIT 27.3 % (36.0-47.0); HEMOGLOBIN 8.4 g/dl (12.0-15.5); LYMPH # 1.4 10^3/uL (1.5-5.0); LYMPH % 7.9 % (24.0-44.0); MEAN CORPUSCULAR HGB CONC 30.8 g/dl (32.0-36.5); MEAN CORPUSCULAR VOLUME 94.1 fl (80.0-96.0); MONO # 1.1 10^3/uL (0.0-0.8); MONO % 6.3 % (2.0-8.0); NEUTROPHILS # 13.1 10^3/uL (1.5-8.5); NEUTROPHILS % 74.6 % (36.0-66.0); PLATELET COUNT, AUTOMATED 551 10^3/uL (150-450); WHITE BLOOD COUNT 17.5 10^3/uL (4.0-10.0)
[2020-11-07] MEDS: **NOTE PATIENT COMMENT** MISC XX SCH (21:00)
[2020-11-07 22:00] VITALS: BP 135/67
[2020-11-07] MEDS: SENOKOT S TAB PO SCH (22:14)
[2020-11-07] MEDS: ATORVASTATIN 20 MG TAB PO SCH (22:14)
[2020-11-08] MEDS: oxyCODONE 5MG TAB PO PRN ×3 (01:03→21:43)
[2020-11-08] MEDS: MEROPENEM INJ 1 GM in IV 1 EA IV SCH ×3 (01:25→16:10)
[2020-11-08] MEDS: SODIUM CHLORIDE 0.9% INJ 10 ML SYR IV PRN (02:16)
[2020-11-08] MEDS: FUROSEMIDE 40MG/4ML VIAL (J1940) IV SCH ×2 (05:37→16:10)
[2020-11-08] MEDS: LEVOTHYROXINE 50MCG TABLET (0.05MG) PO SCH (05:37)
[2020-11-08] MEDS: ONDANSETRON 4 MG TAB PO PRN (05:43)
--- NOTE | 2020-11-08 05:48 | ECGEPIP ---
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
[2020-11-08 06:00] VITALS: BP 125/75
[2020-11-08 07:00] LABS: VANCOMYCIN LEVEL TROUGH 16.4 UG/ML (10.0-20.0)
[2020-11-08] MEDS: HumaLOG INSULIN (NovoLOG) PER UNIT SC SCH ×4 (07:30→21:00)
[2020-11-08 08:30] VITALS: O2SAT 96
[2020-11-08] MEDS: SUCRALFATE SUSP 1GM/10ML UD PO SCH ×4 (08:32→21:44)
[2020-11-08] MEDS: LACTULOSE 20 GM/30 ML SYRUP UD PO SCH (08:32)
[2020-11-08] MEDS: LIDOCAINE 5% (LIDODERM) PATCH TD SCH (08:32)
[2020-11-08] MEDS: VANCOMYCIN HCL 1,000 MG, VIAL MATE ADAPTER 1 EACH in NS 250 ML IV SCH ×2 (08:34→18:33)
[2020-11-08] MEDS: ENOXAPARIN 150MG/ML SYRINGE (J1650 PER 10MG) SC SCH ×2 (08:34→21:50)
[2020-11-08] MEDS: SODIUM CHLORIDE 0.9% INJ 10 ML SYR IV SCH ×2 (08:37→18:36)
[2020-11-08] MEDS: CYANOCOBALAMIN 250 MCG TABLET PO SCH (08:37)
[2020-11-08] MEDS: SOLIFENACIN 5 MG TAB PO SCH (08:37)
[2020-11-08] MEDS: PREGABALIN 100 MG CAP (LYRICA) PO SCH ×2 (08:38→21:45)
[2020-11-08] MEDS: diazePAM 2 MG TAB PO SCH ×2 (08:38→21:44)
[2020-11-08] MEDS: PANTOPRAZOLE 40MG TAB (PROTONIX) PO SCH (08:38)
[2020-11-08] MEDS: BACLOFEN 5MG PER 1/2 TABLET PO SCH ×3 (08:38→21:44)
[2020-11-08] MEDS: GABAPENTIN 300 MG CAP PO SCH ×3 (08:38→21:44)
[2020-11-08] MEDS: POTASSIUM CHLORIDE 10MEQ SR TABLET PO SCH ×2 (08:39→21:44)
[2020-11-08] MEDS: MAGNESIUM OXIDE 400MG TAB (MAG-OX) PO SCH ×2 (08:40→21:44)
[2020-11-08] MEDS: FOLIC ACID 1 MG TAB PO SCH (08:40)
[2020-11-08] MEDS: ANALGESIC BALM CRM 3OZ TOP SCH ×3 (08:40→21:49)
[2020-11-08] MEDS: DIAPER RELIEF PASTE (DESITIN) 60GM TOP SCH ×2 (08:40→21:50)
[2020-11-08] MEDS: NYSTATIN 100,000 UNITS/GM TOPICAL PWD 15 GM TOP SCH ×2 (08:41→21:50)
--- NOTE | 2020-11-08 10:14 | REP ---
INDICATION: hypoxia COMPARISON: 11/06/2020 TECHNIQUE: Portable AP view of the chest FINDINGS: The mediastinum and cardiac silhouette are stable and with cardiomegaly again noted. Bibasilar opacities are again suggested without significant change from prior examination. Layering effusions cannot be excluded. No pneumothorax. Skeletal structures are intact. Right PICC line with tip in the SVC. Tracheostomy overlies the airway. IMPRESSION: Bibasilar opacities similar to prior examination. <Electronically signed by Sarbjit Parnell > 11/08/20 1011
[2020-11-08 14:00] VITALS: BP 115/74
[2020-11-08] MEDS ORDERED: diphenhydrAMINE 25MG CAP PO ONE (14:15)
[2020-11-08 16:48] LABS: C REACTIVE PROTEIN QUANTITATIV 14.3 MG/DL (0.00-0.30)
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
[2020-11-08 20:38] LABS: BASO # 0.1 10^3/uL (0.0-0.2); BASO % 0.8 % (0.0-1.0); EOS # 1.8 10^3/uL (0.0-0.5); EOS % 13.4 % (0.0-3.0); HEMATOCRIT 26.8 % (36.0-47.0); HEMOGLOBIN 8.3 g/dl (12.0-15.5); LYMPH # 1.4 10^3/uL (1.5-5.0); MEAN CORPUSCULAR HEMOGLOBIN 28.3 pg (27.0-33.0); MEAN CORPUSCULAR VOLUME 91.5 fl (80.0-96.0); MONO % 7.2 % (2.0-8.0); NEUTROPHILS # 9.2 10^3/uL (1.5-8.5); NEUTROPHILS % 67.5 % (36.0-66.0); PLATELET COUNT, AUTOMATED 600 10^3/uL (150-450); RED BLOOD COUNT 2.93 10^6/uL (4.00-5.40); WHITE BLOOD COUNT 13.6 10^3/uL (4.0-10.0)
[2020-11-08 20:51] LABS: ALBUMIN 1.7 GM/DL (3.2-5.2); ALT/SGPT 20 U/L (12-78); BILIRUBIN,TOTAL 0.2 MG/DL (0.2-1.0); BLOOD UREA NITROGEN 13 MG/DL (7-18); CARBON DIOXIDE LEVEL 33 MEQ/L (21-32); CHLORIDE LEVEL 99 MEQ/L (98-107); CREATININE FOR GFR 0.59 MG/DL (0.55-1.30); GLOMERULAR FILTRATION RATE > 60.0 (>45); GLUCOSE, FASTING 182 MG/DL (70-100); MAGNESIUM LEVEL 2.2 MG/DL (1.8-2.4); POTASSIUM SERUM 4.6 MEQ/L (3.5-5.1); SODIUM LEVEL 138 MEQ/L (136-145)
[2020-11-08] MEDS: SENOKOT S TAB PO SCH (21:42)
[2020-11-08] MEDS: ATORVASTATIN 20 MG TAB PO SCH (21:44)
[2020-11-08] MEDS: **NOTE PATIENT COMMENT** MISC XX SCH (21:51)
[2020-11-08 22:00] VITALS: BP 122/68
[2020-11-09] MEDS: MEROPENEM INJ 1 GM in IV 1 EA IV SCH ×3 (01:40→18:14)
[2020-11-09 03:43] VITALS: O2SAT 97
[2020-11-09] MEDS: oxyCODONE 5MG TAB PO PRN ×3 (03:51→22:07)
[2020-11-09] MEDS: SODIUM CHLORIDE 0.9% INJ 10 ML SYR IV PRN (04:25)
[2020-11-09] MEDS: FUROSEMIDE 40MG/4ML VIAL (J1940) IV SCH ×2 (05:26→18:13)
[2020-11-09 05:53] LABS: BASO # 0.1 10^3/uL (0.0-0.2); BASO % 0.9 % (0.0-1.0); EOS % 16.9 % (0.0-3.0); HEMATOCRIT 26.9 % (36.0-47.0); LYMPH # 1.7 10^3/uL (1.5-5.0); LYMPH % 14.4 % (24.0-44.0); MEAN CORPUSCULAR HEMOGLOBIN 28.1 pg (27.0-33.0); MEAN CORPUSCULAR HGB CONC 29.7 g/dl (32.0-36.5); MEAN CORPUSCULAR VOLUME 94.4 fl (80.0-96.0); MONO # 1.2 10^3/uL (0.0-0.8); MONO % 10.1 % (2.0-8.0); NEUTROPHILS # 6.6 10^3/uL (1.5-8.5); NEUTROPHILS % 56.4 % (36.0-66.0); PLATELET COUNT, AUTOMATED 553 10^3/uL (150-450); RED BLOOD COUNT 2.85 10^6/uL (4.00-5.40); WHITE BLOOD COUNT 11.6 10^3/uL (4.0-10.0)
[2020-11-09 06:00] VITALS: BP 126/73
[2020-11-09] MEDS: ONDANSETRON 4 MG TAB PO PRN ×2 (06:02→18:29)
[2020-11-09] MEDS: VANCOMYCIN HCL 1,000 MG, VIAL MATE ADAPTER 1 EACH in NS 250 ML IV SCH ×3 (06:02→18:15)
[2020-11-09] MEDS: LEVOTHYROXINE 50MCG TABLET (0.05MG) PO SCH (06:02)
[2020-11-09 06:19] LABS: ALBUMIN 1.6 GM/DL (3.2-5.2); ALT/SGPT 19 U/L (12-78); BILIRUBIN,TOTAL 0.3 MG/DL (0.2-1.0); BLOOD UREA NITROGEN 14 MG/DL (7-18); CALCIUM LEVEL 7.8 MG/DL (8.8-10.2); CARBON DIOXIDE LEVEL 34 MEQ/L (21-32); CHLORIDE LEVEL 99 MEQ/L (98-107); CREATININE FOR GFR 0.44 MG/DL (0.55-1.30); GLOMERULAR FILTRATION RATE > 60.0 (>45); GLUCOSE, FASTING 128 MG/DL (70-100); MAGNESIUM LEVEL 2.2 MG/DL (1.8-2.4); POTASSIUM SERUM 4.6 MEQ/L (3.5-5.1); SODIUM LEVEL 138 MEQ/L (136-145); TOTAL PROTEIN 5.8 GM/DL (6.4-8.2); VANCOMYCIN LEVEL TROUGH 16.5 UG/ML (10.0-20.0)
[2020-11-09] MEDS: HumaLOG INSULIN (NovoLOG) PER UNIT SC SCH ×4 (10:46→21:00)
[2020-11-09] MEDS: LACTULOSE 20 GM/30 ML SYRUP UD PO SCH (10:47)
[2020-11-09] MEDS: FOLIC ACID 1 MG TAB PO SCH (10:47)
[2020-11-09] MEDS: MAGNESIUM OXIDE 400MG TAB (MAG-OX) PO SCH ×2 (10:47→21:51)
[2020-11-09] MEDS: SUCRALFATE SUSP 1GM/10ML UD PO SCH ×4 (10:47→21:51)
--- NOTE | 2020-11-09 10:47 | IPN ---
PROGRESS NOTE DATE: 11/08/2020 Nadege seems to be doing a little better today than a couple days ago. She seems less short of breath and less tachycardic. She has an air mattress, but she does not like to roll on her left side. She has increased secretions from her trach and asked to be suctioned five times today. The secretions are mostly gabriel. She also complains of left shoulder pain. No nausea, vomiting, diarrhea. She states she likes to eat crackers and peanut butter, and significant other, Choco, will be bringing a jar of peanut butter that she likes the brand. Her appetite is poor. LABORATORY DATA: White count 17.5, hemoglobin 8.4, hematocrit 27.3, platelets 551, 74% neutrophils, 8% lymphocytes, 6% monocytes. Sodium 135, potassium 3.6, chloride 97, bicarbonate 35, BUN 12, creatinine 0.44, glucose 141. Lactic acid 2. Calcium 8.6. CRP 14.3. Blood cultures two sets are no growth after 24 hours, done on November 07, and November 06 two sets also were no growth. Sputum culture is still pending. Many white cells. Good quality with few gram-positive cocci, gram-positive rods, and gram-negative rods. Chest x-ray showed bilateral basilar infiltrates. PHYSICAL EXAMINATION: HEART: Normal S1, S2. Tachycardic. No murmurs appreciated. LUNGS: Diffuse inspiratory rhonchi. Trach in place. Mild secretions. ABDOMEN: Morbidly obese, soft, nontender. Left lower quadrant colostomy with hard stools. EXTREMITIES: Pitting edema +2 bilaterally. Decubitus ulcer at the sacrum is large but clean. There is no exposed bone in the sacral area. Left hip: Exposed but also the wound is nice and clean, stage IV. Right thigh ischial wound much smaller and healing. There is diffuse erythema between her thighs, where she has persistent urinary leak. IMPRESSION: 1. Hospital-acquired pneumonia, on intravenous (IV) meropenem and vancomycin. Patient has a positive Methicillin-resistant Staphylococcus aureus (MRSA) screen. Waiting for results of culture to de-escalate therapy. 2. Sacral decubitus with osteomyelitis of the left ischium with exposed bone. Patient had been on IV Zosyn for 5 weeks and currently on meropenem and vancomycin. 3. Hypoalbuminemia has improved. Her albumin has gone up from 1 to 2. Patient was encouraged to eat peanut butter and crackers and to ask her significant other for anything she likes. PLAN: Continue vancomycin and meropenem to treat for hospital-acquired pneumonia. De-escalate based on sputum culture. Wound consultation will be done weekly with Dr. Reed every Thursday to help with wound care. Encourage intake of protein.
[2020-11-09] MEDS: CYANOCOBALAMIN 250 MCG TABLET PO SCH (10:48)
[2020-11-09] MEDS: PANTOPRAZOLE 40MG TAB (PROTONIX) PO SCH (10:48)
[2020-11-09] MEDS: BACLOFEN 5MG PER 1/2 TABLET PO SCH ×3 (10:48→21:53)
[2020-11-09] MEDS: POTASSIUM CHLORIDE 10MEQ SR TABLET PO SCH ×2 (10:48→21:52)
[2020-11-09] MEDS: PREGABALIN 100 MG CAP (LYRICA) PO SCH ×2 (10:48→21:52)
[2020-11-09] MEDS: LIDOCAINE 5% (LIDODERM) PATCH TD SCH (10:49)
[2020-11-09] MEDS: GABAPENTIN 300 MG CAP PO SCH ×2 (10:49→21:52)
[2020-11-09] MEDS: diazePAM 2 MG TAB PO SCH ×2 (10:49→21:52)
[2020-11-09] MEDS: ANALGESIC BALM CRM 3OZ TOP SCH ×3 (10:49→21:54)
[2020-11-09] MEDS: SODIUM CHLORIDE 0.9% INJ 10 ML SYR IV SCH ×2 (10:50→18:16)
[2020-11-09] MEDS: DIAPER RELIEF PASTE (DESITIN) 60GM TOP SCH ×2 (10:50→21:53)
[2020-11-09] MEDS: NYSTATIN 100,000 UNITS/GM TOPICAL PWD 15 GM TOP SCH ×2 (10:50→21:54)
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
[2020-11-09] MEDS: SOLIFENACIN 5 MG TAB PO SCH (12:21)
[2020-11-09 13:33] VITALS: O2SAT 96
[2020-11-09 14:00] VITALS: BP 118/73
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
--- NOTE | 2020-11-09 18:24 | REP ---
INDICATION: 3D RECON PER ORTHOPEDICS. COMPARISON: Comparison radiographs of the left shoulder are from 10/19/2020.. TECHNIQUE: Helical scanning is acquired and 3 mm axial images are generated. Coronal and sagittal MPR images are generated. In addition 3D surface rendered of rotational images are generated. FINDINGS: There is diffuse osteopenia. There is metallic screw kaylene fixation hardware in the upper thoracic spine. A tracheostomy tube is noted in place. No scapular, clavicle, or proximal humeral fracture is seen. There is osteoarthritic hypertrophy but normal alignment of the AC joint. There is subcortical cyst formation on either side of the normally aligned glenohumeral articulation. No acute erosive changes seen. Periarticular soft tissues show no mass or adenopathy. IMPRESSION: Osteoarthritis of the glenohumeral and acromioclavicular joints. Diffuse osteopenia. No acute bony abnormality. <Electronically signed by Mario Winslow > 11/09/20 [id number]
[2020-11-09 21:00] VITALS: O2SAT 96
[2020-11-09] MEDS: SENOKOT S TAB PO SCH (21:52)
[2020-11-09] MEDS: ATORVASTATIN 20 MG TAB PO SCH (21:52)
[2020-11-09] MEDS: **NOTE PATIENT COMMENT** MISC XX SCH (21:55)
[2020-11-09 22:00] VITALS: BP 135/79
[2020-11-10] MEDS: MEROPENEM INJ 1 GM in IV 1 EA IV SCH ×2 (00:07→08:51)
[2020-11-10] MEDS: FUROSEMIDE 40MG/4ML VIAL (J1940) IV SCH ×2 (04:00→18:18)
[2020-11-10] MEDS: oxyCODONE 5MG TAB PO PRN ×3 (04:09→18:42)
[2020-11-10] MEDS: VANCOMYCIN HCL 1,000 MG, VIAL MATE ADAPTER 1 EACH in NS 250 ML IV SCH ×2 (05:45→18:18)
[2020-11-10] MEDS: SODIUM CHLORIDE 0.9% INJ 10 ML SYR IV SCH ×2 (05:48→18:00)
[2020-11-10] MEDS: LEVOTHYROXINE 50MCG TABLET (0.05MG) PO SCH (05:49)
[2020-11-10 06:00] VITALS: BP 138/82
[2020-11-10 07:44] LABS: BASO # 0.1 10^3/uL (0.0-0.2); BASO % 0.7 % (0.0-1.0); EOS # 1.8 10^3/uL (0.0-0.5); EOS % 16.3 % (0.0-3.0); HEMATOCRIT 27.7 % (36.0-47.0); HEMOGLOBIN 8.3 g/dl (12.0-15.5); LYMPH # 1.3 10^3/uL (1.5-5.0); LYMPH % 11.9 % (24.0-44.0); MEAN CORPUSCULAR VOLUME 93.6 fl (80.0-96.0); MONO # 1.1 10^3/uL (0.0-0.8); MONO % 9.8 % (2.0-8.0); NEUTROPHILS # 6.8 10^3/uL (1.5-8.5); PLATELET COUNT, AUTOMATED 519 10^3/uL (150-450); RED BLOOD COUNT 2.96 10^6/uL (4.00-5.40); WHITE BLOOD COUNT 11.3 10^3/uL (4.0-10.0)
[2020-11-10] MEDS: SUCRALFATE SUSP 1GM/10ML UD PO SCH ×4 (07:47→20:26)
[2020-11-10 08:10] LABS: ALBUMIN 1.7 GM/DL (3.2-5.2); ALT/SGPT 15 U/L (12-78); BILIRUBIN,TOTAL 0.2 MG/DL (0.2-1.0); BLOOD UREA NITROGEN 12 MG/DL (7-18); CALCIUM LEVEL 8.4 MG/DL (8.8-10.2); CARBON DIOXIDE LEVEL 36 MEQ/L (21-32); CHLORIDE LEVEL 98 MEQ/L (98-107); CREATININE FOR GFR 0.32 MG/DL (0.55-1.30); GLOMERULAR FILTRATION RATE > 60.0 (>45); GLUCOSE, FASTING 146 MG/DL (70-100); MAGNESIUM LEVEL 2.2 MG/DL (1.8-2.4); POTASSIUM SERUM 4.1 MEQ/L (3.5-5.1); SODIUM LEVEL 136 MEQ/L (136-145); TOTAL PROTEIN 6.1 GM/DL (6.4-8.2)
[2020-11-10] MEDS: LACTULOSE 20 GM/30 ML SYRUP UD PO SCH (08:47)
[2020-11-10] MEDS: MAGNESIUM OXIDE 400MG TAB (MAG-OX) PO SCH ×2 (08:48→20:25)
[2020-11-10] MEDS: DIAPER RELIEF PASTE (DESITIN) 60GM TOP SCH ×2 (08:49→20:27)
[2020-11-10] MEDS: HumaLOG INSULIN (NovoLOG) PER UNIT SC SCH ×4 (08:49→21:00)
[2020-11-10] MEDS: ANALGESIC BALM CRM 3OZ TOP SCH ×3 (08:49→20:27)
[2020-11-10] MEDS: SOLIFENACIN 5 MG TAB PO SCH (08:50)
[2020-11-10] MEDS: FOLIC ACID 1 MG TAB PO SCH (08:50)
[2020-11-10] MEDS: PREGABALIN 100 MG CAP (LYRICA) PO SCH ×2 (08:50→20:25)
[2020-11-10] MEDS: POTASSIUM CHLORIDE 10MEQ SR TABLET PO SCH ×2 (08:50→20:24)
[2020-11-10] MEDS: BACLOFEN 5MG PER 1/2 TABLET PO SCH ×3 (08:50→20:22)
[2020-11-10] MEDS: PANTOPRAZOLE 40MG TAB (PROTONIX) PO SCH (08:50)
[2020-11-10] MEDS: GABAPENTIN 300 MG CAP PO SCH ×2 (08:51→20:23)
[2020-11-10] MEDS: CYANOCOBALAMIN 250 MCG TABLET PO SCH (08:52)
[2020-11-10] MEDS: diazePAM 2 MG TAB PO SCH ×2 (08:52→20:26)
[2020-11-10] MEDS: NYSTATIN 100,000 UNITS/GM TOPICAL PWD 15 GM TOP SCH ×2 (08:53→20:28)
[2020-11-10] MEDS: LIDOCAINE 5% (LIDODERM) PATCH TD SCH (08:53)
[2020-11-10 09:00] VITALS: O2SAT 94
[2020-11-10] MEDS: SODIUM CHLORIDE 0.9% INJ 10 ML SYR IV PRN (09:47)
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
[2020-11-10 14:00] VITALS: BP 106/60
[2020-11-10] MEDS: LevoFLOXacin 750 MG TABLET PO SCH (18:19)
[2020-11-10] MEDS: ONDANSETRON 4 MG TAB PO PRN (18:35)
[2020-11-10] MEDS: SENOKOT S TAB PO SCH (20:22)
[2020-11-10] MEDS: ATORVASTATIN 20 MG TAB PO SCH (20:23)
[2020-11-10] MEDS: **NOTE PATIENT COMMENT** MISC XX SCH (20:28)
[2020-11-10 21:00] VITALS: O2SAT 94
[2020-11-10 22:00] VITALS: BP 122/56
[2020-11-10] MEDS: hydrOXYzine 25 MG TAB PO PRN (23:46)
[2020-11-11] MEDS: oxyCODONE 5MG TAB PO PRN ×3 (01:11→17:27)
[2020-11-11 06:00] VITALS: BP 123/67
[2020-11-11] MEDS: LEVOTHYROXINE 50MCG TABLET (0.05MG) PO SCH (06:00)
[2020-11-11] MEDS: FUROSEMIDE 40MG/4ML VIAL (J1940) IV SCH ×2 (06:00→17:12)
[2020-11-11] MEDS: VANCOMYCIN HCL 1,000 MG, VIAL MATE ADAPTER 1 EACH in NS 250 ML IV SCH ×2 (06:01→17:13)
[2020-11-11] MEDS: SODIUM CHLORIDE 0.9% INJ 10 ML SYR IV SCH ×2 (06:01→17:13)
[2020-11-11 06:09] LABS: BASO # 0.1 10^3/uL (0.0-0.2); BASO % 0.8 % (0.0-1.0); EOS # 2.2 10^3/uL (0.0-0.5); EOS % 18.9 % (0.0-3.0); HEMATOCRIT 28.3 % (36.0-47.0); HEMOGLOBIN 8.4 g/dl (12.0-15.5); LYMPH # 1.5 10^3/uL (1.5-5.0); MEAN CORPUSCULAR HGB CONC 29.7 g/dl (32.0-36.5); MEAN CORPUSCULAR VOLUME 94.3 fl (80.0-96.0); MONO # 1.1 10^3/uL (0.0-0.8); MONO % 8.9 % (2.0-8.0); NEUTROPHILS # 6.7 10^3/uL (1.5-8.5); NEUTROPHILS % 56.7 % (36.0-66.0); PLATELET COUNT, AUTOMATED 535 10^3/uL (150-450); WHITE BLOOD COUNT 11.9 10^3/uL (4.0-10.0)
[2020-11-11 06:28] LABS: ALBUMIN 1.7 GM/DL (3.2-5.2); ALT/SGPT 16 U/L (12-78); BILIRUBIN,TOTAL 0.2 MG/DL (0.2-1.0); BLOOD UREA NITROGEN 14 MG/DL (7-18); CARBON DIOXIDE LEVEL 34 MEQ/L (21-32); CHLORIDE LEVEL 99 MEQ/L (98-107); CREATININE FOR GFR 0.43 MG/DL (0.55-1.30); GLOMERULAR FILTRATION RATE > 60.0 (>45); GLUCOSE, FASTING 126 MG/DL (70-100); MAGNESIUM LEVEL 2.3 MG/DL (1.8-2.4); POTASSIUM SERUM 4.5 MEQ/L (3.5-5.1); SODIUM LEVEL 138 MEQ/L (136-145); TOTAL PROTEIN 6.8 GM/DL (6.4-8.2)
[2020-11-11 09:00] VITALS: O2SAT 94
[2020-11-11] MEDS: SUCRALFATE SUSP 1GM/10ML UD PO SCH ×4 (10:17→21:58)
[2020-11-11] MEDS: HumaLOG INSULIN (NovoLOG) PER UNIT SC SCH ×4 (10:17→21:00)
[2020-11-11] MEDS: LACTULOSE 20 GM/30 ML SYRUP UD PO SCH (10:17)
[2020-11-11] MEDS: POTASSIUM CHLORIDE 10MEQ SR TABLET PO SCH ×2 (10:18→22:00)
[2020-11-11] MEDS: LIDOCAINE 5% (LIDODERM) PATCH TD SCH (10:18)
[2020-11-11] MEDS: CYANOCOBALAMIN 250 MCG TABLET PO SCH (10:19)
[2020-11-11] MEDS: GABAPENTIN 300 MG CAP PO SCH ×2 (10:19→22:01)
[2020-11-11] MEDS: PANTOPRAZOLE 40MG TAB (PROTONIX) PO SCH (10:19)
[2020-11-11] MEDS: PREGABALIN 100 MG CAP (LYRICA) PO SCH ×2 (10:19→22:01)
[2020-11-11] MEDS: SOLIFENACIN 5 MG TAB PO SCH (10:19)
[2020-11-11] MEDS: FOLIC ACID 1 MG TAB PO SCH (10:19)
[2020-11-11] MEDS: MAGNESIUM OXIDE 400MG TAB (MAG-OX) PO SCH ×2 (10:19→22:02)
[2020-11-11] MEDS: diazePAM 2 MG TAB PO SCH ×2 (10:20→21:58)
[2020-11-11] MEDS: ANALGESIC BALM CRM 3OZ TOP SCH ×3 (10:20→22:03)
[2020-11-11] MEDS: DIAPER RELIEF PASTE (DESITIN) 60GM TOP SCH ×2 (10:21→22:04)
[2020-11-11] MEDS: NYSTATIN 100,000 UNITS/GM TOPICAL PWD 15 GM TOP SCH ×2 (10:21→22:04)
[2020-11-11] MEDS: BACLOFEN 5MG PER 1/2 TABLET PO SCH ×3 (10:21→21:58)
[2020-11-11 14:00] VITALS: BP 116/76
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
[2020-11-11] MEDS: LevoFLOXacin 750 MG TABLET PO SCH (17:10)
[2020-11-11 21:00] VITALS: O2SAT 96
[2020-11-11] MEDS: **NOTE PATIENT COMMENT** MISC XX SCH (21:00)
[2020-11-11] MEDS: SENOKOT S TAB PO SCH (21:59)
[2020-11-11 22:00] VITALS: BP 117/75
[2020-11-11] MEDS: ATORVASTATIN 20 MG TAB PO SCH (22:00)
[2020-11-11] MEDS: hydrOXYzine 25 MG TAB PO PRN (22:01)
[2020-11-12] MEDS: oxyCODONE 5MG TAB PO PRN ×3 (01:11→21:39)
[2020-11-12] MEDS: LEVOTHYROXINE 50MCG TABLET (0.05MG) PO SCH (05:56)
[2020-11-12] MEDS: FUROSEMIDE 40MG/4ML VIAL (J1940) IV SCH ×2 (05:56→17:50)
[2020-11-12] MEDS: SODIUM CHLORIDE 0.9% INJ 10 ML SYR IV SCH ×2 (05:57→17:52)
[2020-11-12] MEDS: VANCOMYCIN HCL 1,000 MG, VIAL MATE ADAPTER 1 EACH in NS 250 ML IV SCH (05:57)
[2020-11-12 05:58] LABS: BASO # 0.1 10^3/uL (0.0-0.2); BASO % 0.6 % (0.0-1.0); EOS # 1.9 10^3/uL (0.0-0.5); EOS % 15.1 % (0.0-3.0); HEMATOCRIT 26.6 % (36.0-47.0); LYMPH # 1.9 10^3/uL (1.5-5.0); LYMPH % 14.7 % (24.0-44.0); MEAN CORPUSCULAR HEMOGLOBIN 28.2 pg (27.0-33.0); MEAN CORPUSCULAR HGB CONC 30.1 g/dl (32.0-36.5); MEAN CORPUSCULAR VOLUME 93.7 fl (80.0-96.0); MONO # 1.4 10^3/uL (0.0-0.8); MONO % 10.7 % (2.0-8.0); NEUTROPHILS # 7.4 10^3/uL (1.5-8.5); NEUTROPHILS % 57.2 % (36.0-66.0); PLATELET COUNT, AUTOMATED 495 10^3/uL (150-450); RED BLOOD COUNT 2.84 10^6/uL (4.00-5.40); WHITE BLOOD COUNT 12.9 10^3/uL (4.0-10.0)
[2020-11-12 06:00] VITALS: BP 114/77
[2020-11-12 06:24] LABS: ALBUMIN 1.8 GM/DL (3.2-5.2); ALT/SGPT 15 U/L (12-78); BILIRUBIN,TOTAL 0.2 MG/DL (0.2-1.0); BLOOD UREA NITROGEN 17 MG/DL (7-18); CALCIUM LEVEL 8.4 MG/DL (8.8-10.2); CARBON DIOXIDE LEVEL 34 MEQ/L (21-32); CHLORIDE LEVEL 99 MEQ/L (98-107); CREATININE FOR GFR 0.32 MG/DL (0.55-1.30); GLOMERULAR FILTRATION RATE > 60.0 (>45); GLUCOSE, FASTING 102 MG/DL (70-100); MAGNESIUM LEVEL 2.1 MG/DL (1.8-2.4); POTASSIUM SERUM 4.5 MEQ/L (3.5-5.1); SODIUM LEVEL 138 MEQ/L (136-145); TOTAL PROTEIN 6.1 GM/DL (6.4-8.2); VANCOMYCIN LEVEL TROUGH 17.2 UG/ML (10.0-20.0)
--- NOTE | 2020-11-12 09:08 | IPNPDOC ---
Subjective General Date Seen: Nov 12, 2020 Subject Chief Complaint/History The patient is a 65-year-old female admitted with a reason for visit of Uti, Overactive Bladder. Patient seen and examined at the bedside. She states she is feeling good today. Complaint with wound dressing changes. Denies pain. Current Medications Current Medications Current Medications Medications (Trade) Dose Ordered Sig/Yonatan Route PRN Reason Start Time Stop Time Status Last Admin Dose Admin Acetaminophen (Tylenol Tab) 650 mg Q4HP PRN PO PAIN OR DISCOMFORT 09/07/20 21:10 10/06/20 17:47 DC 10/06/20 16:35 Acetaminophen (Tylenol Tab) 650 mg Q4HP PRN PO FEVER 11/06/20 18:15 11/06/20 18:50 Acetaminophen (Tylenol Tab) 1,000 mg TID PO 10/06/20 21:00 10/07/20 16:32 DC 10/07/20 16:21 Acetaminophen (Tylenol Tab) 1,000 mg TID PO 10/07/20 16:00 Cancel Acetaminophen (Tylenol Tab) 1,000 mg TID PO 10/07/20 21:00 11/06/20 18:13 DC 11/05/20 21:50 Albuterol Sulfate (Proventil Neb) 2.5 mg Q6HP PRN NEB SOB/WHEEZING 09/17/20 10:20 11/08/20 10:06 DC Albuterol/ Ipratropium (Duoneb (Ipr 0.5mg/Alb 2.5mg)) 3 ml Q4HP PRN NEB SOB/WHEEZING 11/08/20 10:00 Artificial Tears (Akwa Tears) 2 drop TID PRN OU DRY EYES 09/07/20 13:55 10/09/20 01:29 Aspirin (Ecotrin) 81 mg DAILY PO 09/07/20 09:00 10/17/20 18:15 DC 10/17/20 08:50 Atorvastatin Calcium (Lipitor) 40 mg QHS PO 09/07/20 21:00 11/01/20 12:33 DC 10/31/20 21:46 Atorvastatin Calcium (Lipitor) 40 mg QHS PO 11/01/20 21:00 11/11/20 22:00 Baclofen (Lioresal) 5 mg BID PO 10/08/20 09:00 10/12/20 11:28 DC 10/12/20 08:06 Baclofen (Lioresal) 5 mg BID PO 10/03/20 21:00 10/04/20 18:00 DC 10/04/20 08:31 Baclofen (Lioresal) 5 mg DAILY PO 10/05/20 09:00 10/05/20 11:40 DC 10/05/20 08:50 Baclofen (Lioresal) 5 mg TID PO 10/12/20 16:00 11/11/20 21:58 Baclofen (Lioresal) 5 mg TID PO 10/07/20 09:00 10/07/20 06:49 DC Baclofen (Lioresal) 10 mg QHS PO 10/04/20 21:00 10/05/20 11:40 DC 10/04/20 20:25 Baclofen (Lioresal) 10 mg TID PO 10/05/20 16:00 10/06/20 22:32 DC 10/06/20 22:03 Buprenorphine/ Naloxone (Suboxone 2/ 0.5mg) 1 tab BID SL 09/28/20 21:00 09/29/20 10:30 DC 09/29/20 08:27 Buprenorphine/ Naloxone (Suboxone 2/ 0.5mg) 1 tab QPM SL 09/29/20 21:00 10/02/20 22:06 DC 10/02/20 20:41 Buprenorphine/ Naloxone (Suboxone 2/ 0.5mg) 1 tab Taper DAILY SL 10/03/20 09:00 10/09/20 08:59 DC 10/08/20 09:40 Buprenorphine/ Naloxone (Suboxone 2/ 0.5mg) 2 tab BID SL 09/07/20 21:00 09/28/20 11:12 DC 09/28/20 05:42 Buprenorphine/ Naloxone (Suboxone 2/ 0.5mg) 2 tab BID SL 11/01/20 12:25 11/01/20 18:52 DC 11/01/20 14:01 Buprenorphine/ Naloxone (Suboxone 2/ 0.5mg) 2 tab DAILY SL 09/30/20 09:00 10/02/20 22:06 DC 10/02/20 09:01 Calcium Carbonate (Tums) 1,000 mg Q4HP PRN PO HEARTBURN 10/30/20 11:25 10/30/20 11:39 Cefepime HCl 1 gm/ Dextrose 50 ml @ 100 mls/hr Q12H IV 09/19/20 21:00 09/20/20 18:32 DC 09/20/20 09:18 Cefepime HCl 1 gm/ Dextrose 50 ml @ 100 mls/hr Q8H IV 09/20/20 18:25 09/28/20 11:43 DC 09/28/20 03:03 Cefepime HCl 1 gm/ Dextrose 50 ml @ 100 mls/hr Q8H IV 10/01/20 07:00 10/01/20 21:05 DC 10/01/20 16:10 Ceftriaxone Sodium 1 gm/ Dextrose 50 ml @ 100 mls/hr Q24H IV 09/07/20 13:00 09/07/20 14:56 DC 09/07/20 13:43 Cod Liver Oil/ Zinc Oxide (Desitin) 1 dose BID TOP 10/02/20 09:00 11/11/20 22:04 Collagenase (SantyL) Apply to wound bed ... DAILY TOP 10/09/20 09:00 10/23/20 15:32 DC 10/21/20 09:26 Cyanocobalamin (Vitamin B12) 250 mcg DAILY PO 09/07/20 09:00 11/01/20 12:33 DC 11/01/20 09:45 Cyanocobalamin (Vitamin B12) 250 mcg DAILY PO 11/02/20 09:00 11/11/20 10:19 Dextrose (Dextrose 50%) 25 ml ASDIRECTED PRN IV SEE LABEL COMMENTS 09/07/20 14:10 11/01/20 12:33 DC 10/07/20 06:56 Dextrose (Dextrose 50%) 25 ml ASDIRECTED PRN IV SEE LABEL COMMENTS 11/01/20 20:30 Diatrizoate Meglum/ Diatrizoate Sod (Gastrografin) 10 ml Q30M PO 10/23/20 10:45 10/23/20 11:16 DC 10/23/20 12:01 Diazepam (Valium) 1 mg BID PO 10/13/20 09:00 11/11/20 21:58 Diphenhydramine HCl (Benadryl) 25 mg Q6HP PRN IV drug rash or itchy 10/04/20 08:00 10/09/20 08:36 Docusate Sodium (Colace) 100 mg BID PO 09/07/20 21:00 09/30/20 16:42 DC 09/30/20 09:39 Docusate Sodium (Colace) 200 mg BID PO 09/30/20 21:00 10/02/20 21:50 DC 10/02/20 20:41 Dronabinol (Marinol) 2.5 mg BID@12,1730 PO 10/20/20 17:30 10/31/20 12:35 DC 10/30/20 17:25 Duloxetine HCl (Cymbalta) 45 mg BID PO 10/12/20 11:35 10/12/20 11:39 DC Duloxetine HCl (Cymbalta) 60 mg QHS PO 09/07/20 21:00 10/12/20 11:37 DC 10/11/20 21:57 Enoxaparin Sodium (Lovenox) 40 mg DAILY SC 09/08/20 09:00 10/08/20 16:07 DC 10/08/20 09:38 Enoxaparin Sodium (Lovenox) 120 mg BID SC 10/08/20 21:00 10/17/20 13:16 DC 10/17/20 08:56 Enoxaparin Sodium (Lovenox) 130 mg Q12H SC 11/06/20 22:00 11/09/20 07:32 DC 11/08/20 21:50 Famotidine (Pepcid) 20 mg QHS PRN PO HEARTBURN 09/07/20 13:55 10/11/20 09:26 DC Fentanyl Citrate (Sublimaze) 25 mcg Q5MP PRN IV PAIN LEVEL 5-10 09/15/20 19:00 09/15/20 20:30 DC Fentanyl Citrate (Sublimaze) 25 mcg Q5MP PRN IV PAIN LEVEL 5-10 09/20/20 17:10 09/20/20 18:10 DC Fentanyl Citrate (Sublimaze) 25 mcg Q5MP PRN IV PAIN LEVEL 5-10 09/20/20 17:45 09/20/20 18:45 DC Ferrous Gluconate (Fergon) 324 mg QHS PO 09/07/20 21:00 11/01/20 12:33 DC 10/31/20 21:45 Fluconazole (Diflucan) 150 mg DAILY PO 10/03/20 09:00 10/13/20 08:59 DC 10/12/20 08:11 Folic Acid (Folic Acid) 1 mg DAILY PO 09/07/20 09:00 11/01/20 12:33 DC 11/01/20 09:45 Folic Acid (Folic Acid) 1 mg DAILY PO 11/02/20 09:00 11/11/20 10:19 Furosemide (LASIX injection) 40 mg BID@09,17 IV 10/17/20 17:00 10/17/20 13:16 DC Furosemide (LASIX injection) 40 mg Q12H IV 11/08/20 05:00 11/12/20 05:56 Furosemide (LASIX injection) 40 mg Q8H IV 10/19/20 13:00 11/01/20 12:33 DC 11/01/20 04:45 Furosemide (LASIX injection) 40 mg Q8H IV 11/01/20 21:00 11/07/20 19:10 DC 11/06/20 14:18 Furosemide (Lasix) 20 mg DAILY PO 09/23/20 09:00 09/24/20 08:53 DC 09/23/20 11:18 Furosemide (Lasix) 40 mg DAILY PO 09/08/20 09:00 09/07/20 14:10 DC Furosemide (Lasix) 40 mg DAILY PO 09/10/20 09:00 09/10/20 14:40 DC 09/10/20 08:50 Furosemide (Lasix) 40 mg DAILY PO 09/12/20 09:00 09/21/20 07:14 DC 09/19/20 09:22 Furosemide (Lasix) 40 mg DAILY PO 09/24/20 09:00 10/13/20 14:33 DC 10/13/20 10:14 Furosemide (Lasix) 40 mg DAILY PO 10/14/20 09:00 10/13/20 17:19 DC Gabapentin (Neurontin) 600 mg TID PO 11/02/20 16:00 11/03/20 14:38 DC 11/03/20 09:09 Gabapentin (Neurontin) 600 mg Taper BID PO 11/03/20 16:00 11/21/20 15:59 11/11/20 22:01 Gabapentin (Neurontin) 900 mg TID PO 09/07/20 16:00 11/02/20 13:18 DC 11/02/20 09:05 Glucagon (Glucagon) 1 mg ASDIRECTED PRN SC SEE LABEL COMMENTS 09/07/20 14:10 11/01/20 12:33 DC Glucagon (Glucagon) 1 mg ASDIRECTED PRN SC SEE LABEL COMMENTS 11/01/20 20:30 Glucose (Glucose) 16 GM ASDIRECTED PRN PO SEE LABEL COMMENTS 09/07/20 14:10 11/01/20 12:33 DC Glucose (Glucose) 16 GM ASDIRECTED PRN PO SEE LABEL COMMENTS 11/01/20 20:30 Heparin Sodium (Heparin (Flush)) 200 units ASDIRECTED PRN IV SEE LABEL COMMENTS 09/10/20 13:20 09/21/20 15:43 DC 09/19/20 20:42 Heparin Sodium (Heparin (Flush)) 200 units ASDIRECTED PRN IV SEE LABEL COMMENTS 09/21/20 16:00 09/28/20 11:57 DC 09/27/20 09:37 Heparin Sodium (Heparin (Flush)) 200 units ASDIRECTED PRN IV SEE LABEL COMMENTS 10/02/20 19:00 11/10/20 09:47 Heparin Sodium (Heparin (Flush)) 200 units PICC IV 09/10/20 18:00 09/21/20 15:43 DC 09/21/20 05:51 Heparin Sodium (Heparin (Flush)) 200 units PICC IV 09/21/20 18:00 09/28/20 11:57 DC 09/28/20 05:40 Heparin Sodium (Heparin (Flush)) 200 units PICC IV 10/03/20 06:00 11/12/20 05:57 Home Med (Med Rec Complete!) ASDIRECTED XX 09/07/20 13:00 09/07/20 13:00 DC Hydrocortisone (Hydrocortisone 1% Cream) APPLY TO RASH ON CHEST ... BIDP PRN TOP itchy rash 10/04/20 09:40 10/07/20 11:20 Hydromorphone HCl (Dilaudid) 0.2 mg Q5MP PRN IV PAIN LEVEL 4-7 09/20/20 17:10 09/20/20 18:10 DC Hydromorphone HCl (Dilaudid) 0.2 mg Q5MP PRN IV PAIN LEVEL 4-7 09/20/20 17:45 09/20/20 18:45 DC Hydroxyzine HCl (Atarax) 25 mg TID PRN PO ANXIETY 09/07/20 13:55 11/11/20 22:01 Ibuprofen (Advil) 600 mg Q8HP PRN PO MILD PAIN (PS 1-4) 10/12/20 05:05 10/17/20 18:18 DC 10/17/20 16:50 Insulin Human Lispro (HumaLOG INSULIN) SEE PROTOCOL TABLE AC NV 09/07/20 17:30 11/01/20 12:33 DC 11/01/20 09:43 Insulin Human Lispro (HumaLOG INSULIN) SEE PROTOCOL TABLE AC NV 11/02/20 07:30 11/11/20 17:13 Insulin Human Lispro (HumaLOG INSULIN) [facility]OC[facility] 09/07/20 21:00 11/01/20 12:33 DC 10/10/20 21:00 Insulin Human Lispro (HumaLOG INSULIN) SEE PROTOCOL TABLE [facility] 11/01/20 21:00 Ketorolac Tromethamine (ToRADol) 15 mg Q6HP PRN IV pain 10/06/20 17:45 10/11/20 17:44 DC 10/11/20 06:35 Lactated Ringer's 1,000 ml @ 100 mls/hr Q10H IV 09/15/20 19:00 09/15/20 20:30 DC Lactated Ringer's 1,000 ml @ 100 mls/hr Q10H IV 09/20/20 17:10 09/20/20 18:10 DC Lactated Ringer's 1,000 ml @ 100 mls/hr Q10H IV 09/20/20 17:45 09/20/20 18:45 DC Lactulose (Cephulac) 30 ml BID PO 10/17/20 21:00 10/18/20 12:57 DC 10/18/20 09:12 Lactulose (Cephulac) 30 ml DAILY PO 10/28/20 09:00 11/11/20 10:17 Lactulose (Cephulac) 30 ml Q6H PO 10/18/20 12:00 10/27/20 10:08 DC 10/27/20 05:19 Levofloxacin (Levaquin) 750 mg DAILY@1800 PO 11/10/20 18:00 11/11/20 17:10 Levothyroxine Sodium (Synthroid) 50 mcg DAILY@06 PO 11/02/20 06:00 11/12/20 05:56 Levothyroxine Sodium (Synthroid) 50 mcg DAILY@0600 PO 09/07/20 06:00 11/01/20 12:33 DC 11/01/20 05:49 Lidocaine (Lidoderm Patch) 1 patch DAILY TD 10/05/20 09:00 11/11/20 10:18 Lorazepam (Ativan) 1 mg Q2HP PRN PO ANXIETY 11/01/20 12:30 11/01/20 18:47 DC Magnesium Hydroxide (Milk Of Magnesia) 30 ml BID PO 10/06/20 21:00 10/27/20 10:08 DC 10/26/20 21:44 Magnesium Hydroxide (Milk Of Magnesia) 30 ml DAILYPRN PRN PO CONSTIPATION 10/05/20 11:35 10/06/20 13:41 DC 10/06/20 08:24 Magnesium Oxide (Mag-Ox) 400 mg BID PO 10/22/20 09:00 11/01/20 12:33 DC 11/01/20 09:44 Magnesium Oxide (Mag-Ox) 400 mg BID PO 11/01/20 21:00 11/11/20 22:02 Magnesium Sulfate/ Dextrose 1 gm/IV Miscellaneous Supplies 100 ml @ 100 mls/hr Q1H IV 10/20/20 09:00 10/20/20 12:59 DC 10/20/20 12:00 Magnesium Sulfate/ Dextrose 1 gm/IV Miscellaneous Supplies 100 ml @ 100 mls/hr Q1H IV 10/22/20 08:00 10/22/20 09:59 DC 10/22/20 11:59 Meloxicam (Mobic) 7.5 mg DAILY PO 09/07/20 09:00 09/09/20 15:16 DC 09/09/20 10:15 Menthol/Methyl Salicylate (Bengay Cream) 1 dose TID TOP 10/30/20 09:00 11/11/20 22:03 Meropenem 1 gm/IV Miscellaneous Supplies 50 ml @ 100 mls/hr Q8H IV 11/06/20 17:00 11/10/20 13:53 DC 11/10/20 08:51 Methocarbamol (Robaxin) 500 mg Q6HP PRN PO spasms 09/23/20 08:00 09/24/20 07:29 DC Methocarbamol (Robaxin) 500 mg QID PRN PO MUSCLE SPASMS 09/07/20 13:55 09/22/20 15:18 DC 09/17/20 18:33 Metoclopramide HCl (REGLAN INJection) 10 mg Q6HP PRN IV REFRACTORY NAUSEA 10/18/20 16:25 10/31/20 07:58 DC 10/30/20 00:38 Metoclopramide HCl (Reglan) 5 mg BID PO 09/07/20 09:00 10/18/20 16:24 DC 10/18/20 09:12 Metoclopramide HCl (Reglan) 10 mg Q6HP PRN PO NAUSEA OR VOMITING 10/31/20 08:00 11/03/20 09:17 Midazolam HCl (Versed) 1 mg ASDIRECTED PRN IV Q5 MIN ..MAY REPEAT X1 09/15/20 19:30 09/15/20 20:15 DC 09/15/20 19:33 Miscellaneous (Unresolved Clarification Entry) SEE LABEL COMMENTS DAILY XX 10/07/20 09:00 10/07/20 16:31 DC 10/07/20 09:00 Morphine Sulfate (Roxanol) 5 mg Q2HP PRN SL SEVERE PAIN (PS 8-10) 11/01/20 12:30 11/01/20 18:47 DC Non-Formulary Medication ( See Comment Field Below ) REMOVE LIDODERM PATCH DAILY@ XX 10/05/20 21:00 11/11/20 21:00 Nystatin (Mycostatin Powder, Nystop) Apply to groin, abdomi... BID TOP 09/23/20 09:00 11/11/20 22:04 Ondansetron HCl (ZOFRAN INJection) 4 mg Q4HP PRN IV NAUSEA OR VOMITING 09/15/20 19:00 09/15/20 20:30 DC Ondansetron HCl (ZOFRAN INJection) 4 mg Q4HP PRN IV NAUSEA OR VOMITING 09/20/20 17:10 09/20/20 18:10 DC Ondansetron HCl (ZOFRAN INJection) 4 mg Q4HP PRN IV NAUSEA OR VOMITING 09/20/20 17:45 09/20/20 18:45 DC Ondansetron HCl (ZOFRAN INJection) 4 mg Q4HP PRN IV NAUSEA OR VOMITING 10/11/20 10:40 10/31/20 07:58 DC 10/30/20 13:13 Ondansetron HCl (ZOFRAN INJection) 4 mg Q6HP PRN IV NAUSEA OR VOMITING 09/07/20 14:10 09/28/20 11:57 DC 09/25/20 17:09 Ondansetron HCl (Zofran Odt) 4 mg DAILY PO 09/08/20 09:00 09/07/20 14:10 DC Ondansetron HCl (Zofran Odt) 4 mg Q6HP PRN PO NAUSEA OR VOMITING 09/28/20 11:55 10/11/20 10:37 DC 10/05/20 11:15 Ondansetron HCl (Zofran) 4 mg Q4HP PRN PO NAUSEA OR VOMITING 10/31/20 08:00 11/10/20 18:35 Oxybutynin Chloride (Ditropan Xl) 5 mg DAILY PO 10/03/20 15:10 10/04/20 11:02 DC 10/04/20 08:32 Oxybutynin Chloride (Ditropan Xl) 10 mg DAILY PO 09/09/20 17:55 09/14/20 08:48 DC 09/14/20 08:45 Oxycodone HCl (Roxicodone, Oxyir) 5 mg ASDIRECTED PRN PO PAIN LEVEL 1-4 09/15/20 19:00 09/15/20 20:30 DC Oxycodone HCl (Roxicodone, Oxyir) 5 mg ASDIRECTED PRN PO PAIN LEVEL 1-4 09/20/20 17:10 09/20/20 18:10 DC 09/20/20 17:18 Oxycodone HCl (Roxicodone, Oxyir) 5 mg ASDIRECTED PRN PO PAIN LEVEL 1-4 09/20/20 17:45 09/20/20 18:45 DC Oxycodone HCl (Roxicodone, Oxyir) 5 mg Q6HP PRN PO PAIN 10/12/20 15:40 10/19/20 14:15 DC 10/19/20 09:54 Oxycodone HCl (Roxicodone, Oxyir) 10 mg Q6HP PRN PO PAIN 10/19/20 14:15 11/01/20 12:27 DC 11/01/20 09:41 Oxycodone HCl (Roxicodone, Oxyir) 10 mg Q6HP PRN PO SEVERE PAIN (PS 8-10) 11/01/20 18:50 11/03/20 10:50 DC 11/03/20 09:10 Oxycodone HCl (Roxicodone, Oxyir) 15 mg Q6HP PRN PO SEVERE PAIN (PS 8-10) 11/03/20 10:50 11/12/20 01:11 Pantoprazole Sodium (Protonix) 40 mg DAILY PO 10/11/20 09:25 11/01/20 12:33 DC 11/01/20 09:45 Pantoprazole Sodium (Protonix) 40 mg DAILY PO 11/02/20 09:00 11/11/20 10:19 Piperacillin Sod/ Tazobactam Sod 3.375 gm/Dextrose 50 ml @ 50 mls/hr Q6H IV 09/10/20 14:00 09/12/20 11:09 DC 09/12/20 08:25 Piperacillin Sod/ Tazobactam Sod 3.375 gm/Dextrose 50 ml @ 50 mls/hr Q6H IV 09/07/20 16:00 09/10/20 13:24 DC 09/09/20 16:21 Piperacillin Sod/ Tazobactam Sod 3.375 gm/Dextrose 50 ml @ 50 mls/hr Q6H IV 10/01/20 22:00 11/06/20 16:08 DC 11/06/20 09:46 Polyethylene Glycol (Miralax) 1 pkt BID PO 10/06/20 21:00 10/12/20 15:52 DC 10/09/20 21:24 Polyethylene Glycol (Miralax) 1 pkt DAILY PO 10/02/20 21:50 10/06/20 13:41 DC 10/06/20 08:07 Polyethylene Glycol (Miralax) 1 pkt DAILY PRN PO CONSTIPATION 09/07/20 13:55 10/02/20 21:50 DC 10/02/20 09:24 Potassium Chloride (Micro-K Extencaps) 20 meq BID PO 10/21/20 09:00 11/01/20 12:33 DC 11/01/20 09:44 Potassium Chloride (Micro-K Extencaps) 20 meq BID PO 11/01/20 21:00 11/11/20 22:00 Potassium Chloride (Micro-K Extencaps) 30 meq Q4H PO 09/09/20 09:00 09/09/20 13:01 DC 09/09/20 13:45 Pregabalin (Lyrica) 100 mg BID PO 11/02/20 21:00 11/11/20 22:01 Scopolamine (Scopolamine) 1 mg Q3DP PRN TOP EXCESSIVE SECRETIONS 11/01/20 12:30 11/01/20 18:47 DC Senna (Senokot) 1 tab QHS PO 09/07/20 21:00 10/02/20 21:50 DC 10/02/20 20:41 Senna/Docusate Sodium (Senokot S) 2 tab QHS PO 10/03/20 21:00 11/11/20 21:59 Sodium Hypochlorite (Dakin'S Solution) remove wound vac, pl... DAILYPRN PRN TOP WOUND CARE 10/01/20 17:30 10/02/20 19:56 DC 10/01/20 20:16 Sodium Chloride 1,000 ml @ 15 mls/hr Q24H IV 10/22/20 07:35 10/22/20 19:36 DC 10/22/20 10:29 Sodium Chloride 1,000 ml @ 85 mls/hr [id number] IV 09/10/20 14:40 09/11/20 09:38 DC 09/11/20 03:50 Sodium Chloride 1,000 ml @ 100 mls/hr Q10H IV 09/07/20 13:55 09/08/20 11:08 DC 09/08/20 05:36 Sodium Chloride ([place] Nasal Taswell) 2 spray Q2HP PRN NA NASAL DRYNESS 09/18/20 11:20 Sodium Chloride (Saline Lock Flush) 10 ml ASDIRECTED PRN IV SEE LABEL COMMENTS 09/10/20 13:20 09/21/20 15:43 DC 09/19/20 20:43 Sodium Chloride (Saline Lock Flush) 10 ml ASDIRECTED PRN IV SEE LABEL COMMENTS 09/21/20 16:00 09/28/20 11:57 DC 09/27/20 09:37 Sodium Chloride (Saline Lock Flush) 10 ml ASDIRECTED PRN IV SEE LABEL COMMENTS 10/02/20 19:00 11/10/20 09:47 Sodium Chloride (Saline Lock Flush) 10 ml PICC IV 09/10/20 18:00 09/21/20 15:43 DC 09/21/20 05:52 Sodium Chloride (Saline Lock Flush) 10 ml PICC IV 09/21/20 18:00 09/28/20 11:57 DC 09/28/20 05:41 Sodium Chloride (Saline Lock Flush) 10 ml PICC IV 10/03/20 06:00 11/12/20 05:57 Solifenacin (Vesicare) 5 mg DAILY PO 10/05/20 09:00 10/05/20 11:40 DC 10/05/20 08:50 Solifenacin (Vesicare) 10 mg DAILY PO 09/15/20 09:00 09/20/20 18:00 DC 09/20/20 09:18 Solifenacin (Vesicare) 10 mg DAILY PO 10/06/20 09:00 11/01/20 12:33 DC 11/01/20 09:45 Solifenacin (Vesicare) 10 mg DAILY PO 11/02/20 09:00 11/11/20 10:19 Sucralfate (Carafate Suspension) 1 gm ACHS PO 10/27/20 12:00 11/11/20 21:58 Tizanidine HCl (Zanaflex) 4 mg BIDP PRN PO spasms 09/24/20 07:30 10/03/20 15:49 DC 10/03/20 08:33 Tizanidine HCl (Zanaflex) 4 mg Q8HP PRN PO SPASMS 09/22/20 09:00 09/22/20 15:18 DC 09/22/20 10:41 Tizanidine HCl (Zanaflex) 4 mg QHS PO 09/23/20 21:00 09/24/20 07:29 DC 09/23/20 21:05 Tizanidine HCl (Zanaflex) 4 mg QHS PRN PO MUSCLE SPASMS 09/07/20 13:55 09/22/20 08:15 DC 09/21/20 20:34 Vancomycin HCl 750 mg/IV Miscellaneous Supplies 1 each/ Sodium Chloride 275 ml @ 275 mls/hr Q12H IV 09/11/20 04:00 09/11/20 15:39 DC 09/11/20 03:48 Vancomycin HCl 1000 mg/IV Miscellaneous Supplies 1 each/ Sodium Chloride 270 ml @ 270 mls/hr Q12H IV 09/08/20 10:25 09/08/20 11:05 DC Vancomycin HCl 1000 mg/IV Miscellaneous Supplies 1 each/ Sodium Chloride 270 ml @ 270 mls/hr Q12H IV 09/09/20 00:00 09/09/20 13:43 DC 09/08/20 23:33 Vancomycin HCl 1000 mg/IV Miscellaneous Supplies 1 each/ Sodium Chloride 270 ml @ 270 mls/hr Q12H IV 09/09/20 14:00 09/10/20 15:43 DC 09/09/20 13:45 Vancomycin HCl 1000 mg/IV Miscellaneous Supplies 1 each/ Sodium Chloride 270 ml @ 270 mls/hr Q12H IV 09/11/20 16:00 09/12/20 10:32 DC 09/12/20 03:57 Vancomycin HCl 1000 mg/IV Miscellaneous Supplies 1 each/ Sodium Chloride 270 ml @ 270 mls/hr Q12H IV 11/07/20 06:00 11/12/20 05:57 Vancomycin HCl 1000 mg/IV Miscellaneous Supplies 1 each/ Sodium Chloride 270 ml @ 270 mls/hr Q1H IV 11/06/20 18:00 11/06/20 19:59 DC 11/06/20 22:03 Allergies Coded Allergies: oxybutynin (Verified Allergy, Intermediate, rash, 10/06/20) Objective Physical Examination Examination GENERAL APPEARANCE:Patient seen, laying in bed, awake, alert, and oriented. Comfortable, in no acute distress. SKIN: Warm and moist. Sacrum clean granulating tissue, clear moderate drainage, no odor. Left ischium clean granulating tissue, xu well, clear moderate drainage, no odor. Deep area with exposed tendon. Right ischium wound clean granulating tissue, much improved with depth, clear non odorous drainage moderate. LUNGS: Clear to auscultation bilaterally. Trach in place. HEART: No chest wall abnormalities. Regular rate and rhythm with no murmurs appreciated. ABDOMEN: Abdomen is soft, non-tender, non-distended. Colostomy in place Vital Signs Vital Signs Date Time Temp Pulse Resp B/P (MAP) Pulse Ox O2 Delivery O2 Flow Rate FiO2 11/12/20 06:00 98.6 96 18 114/77 (89) 99 Trach Collar 10.0 40 I&Os I&O- Last 24 Hours up to 6 AM 11/12/20 06:00 Intake Total 1810 ml Output Total 2075 ml Balance -265 ml Laboratory Data Labs 24H Laboratory Tests 2 11/11/20 12:07: Bedside Glucose (Misc Panel) 169H 11/11/20 16:30: Bedside Glucose (Misc Panel) 162H 11/11/20 20:16: Bedside Glucose (Misc Panel) 132H 11/12/20 05:46: Immature Granulocyte % (Auto) 1.7, Neutrophils (%) (Auto) 57.2, Lymphocytes (%) (Auto) 14.7L, Monocytes (%) (Auto) 10.7H, Eosinophils (%) (Auto) 15.1H, Basophils (%) (Auto) 0.6, Neutrophils # (Auto) 7.4, Lymphocytes # (Auto) 1.9, Monocytes # (Auto) 1.4H, Eosinophils # (Auto) 1.9H, Basophils # (Auto) 0.1, Nucleated Red Blood Cells % (auto) 0.0, Anion Gap 5L, Glomerular Filtration Rate > 60.0, Calcium Level 8.4L, Magnesium Level 2.1, Total Bilirubin 0.2, Aspartate Amino Transf (AST/SGOT) 17, Alanine Aminotransferase (ALT/SGPT) 15, Alkaline Phosphatase 115, Total Protein 6.1L, Albumin 1.8L, Albumin/Globulin Ratio 0.4L, Vancomycin Level Trough 17.2 CBC/BMP Laboratory Tests 11/12/20 05:46 Microbiology Microbiology 11/07/20 Blood Culture - Preliminary, Resulted No Growth after 72 hours. All specime... 11/07/20 Blood Culture - Preliminary, Resulted No Growth after 72 hours. All specime... 11/06/20 Gram Stain - Final, Resulted 11/06/20 Sputum Culture - Preliminary, Resulted Serratia Marcescens Enterobacter Cloacae Yeast Like Organism 11/06/20 Blood Culture - Final, Complete NO GROWTH AFTER 5 DAYS 11/06/20 Blood Culture - Final, Complete NO GROWTH AFTER 5 DAYS Impression Sacral wound stage IV Left ischial wound stage IV Right ischial wound stage III All wounds are improving. Continue with Hydrofera blue, pack with Kerlix daily and prn dressing changes. Continue with improving nutrition Off loading. Air flow mattress No surgical intervention. Plan / VTE VTE Prophylaxis Ordered?: Yes MCKENZIE MULLEN DO Nov 12, 2020 09:08
[2020-11-12] MEDS: HumaLOG INSULIN (NovoLOG) PER UNIT SC SCH ×4 (09:22→21:00)
[2020-11-12] MEDS: LACTULOSE 20 GM/30 ML SYRUP UD PO SCH (09:23)
[2020-11-12] MEDS: SUCRALFATE SUSP 1GM/10ML UD PO SCH ×4 (09:23→21:39)
[2020-11-12] MEDS: ANALGESIC BALM CRM 3OZ TOP SCH ×3 (09:23→21:41)
[2020-11-12] MEDS: LIDOCAINE 5% (LIDODERM) PATCH TD SCH (09:23)
[2020-11-12] MEDS: diazePAM 2 MG TAB PO SCH ×2 (09:24→21:36)
[2020-11-12] MEDS: SOLIFENACIN 5 MG TAB PO SCH (09:25)
[2020-11-12] MEDS: POTASSIUM CHLORIDE 10MEQ SR TABLET PO SCH ×2 (09:25→21:38)
[2020-11-12] MEDS: BACLOFEN 5MG PER 1/2 TABLET PO SCH ×3 (09:25→21:35)
[2020-11-12] MEDS: GABAPENTIN 300 MG CAP PO SCH ×2 (09:25→21:34)
[2020-11-12] MEDS: PREGABALIN 100 MG CAP (LYRICA) PO SCH ×2 (09:26→21:35)
[2020-11-12] MEDS: MAGNESIUM OXIDE 400MG TAB (MAG-OX) PO SCH ×2 (09:26→21:37)
[2020-11-12] MEDS: PANTOPRAZOLE 40MG TAB (PROTONIX) PO SCH (09:26)
[2020-11-12] MEDS: FOLIC ACID 1 MG TAB PO SCH (09:26)
[2020-11-12] MEDS: CYANOCOBALAMIN 250 MCG TABLET PO SCH (09:26)
[2020-11-12] MEDS: DIAPER RELIEF PASTE (DESITIN) 60GM TOP SCH ×2 (09:34→21:40)
[2020-11-12] MEDS: NYSTATIN 100,000 UNITS/GM TOPICAL PWD 15 GM TOP SCH ×2 (09:45→21:40)
[2020-11-12] MEDS: METOCLOPRAMIDE 10 MG TAB PO PRN (13:13)
--- NOTE | 2020-11-12 13:35 | IPNPDOC ---
Date Seen The patient was seen on 11/12/20. Progress Note SUBJECTIVE: Doing well this morning. No acute events overnight. Denies chest pain, palpitations. Having lots of secretions, needs frequent suctioning. Per RT needs to have a larger trach if will continue snf. L shoulder pain persists. OBJECTIVE PHYSICAL EXAMINATION: VITAL SIGNS: please see below General: NAD, comfortable HEENT: PERRLA, EOMI, sclerae clear Neck: supple, normal ROM, no JVD. Trach in place. Respiratory: mild crackles at lung bases, good air entry bilaterally CVS: RRR, normal S1, S2, no murmurs Abdo: soft, no masses, no hepatosplenomegaly, BS+, no rebound tenderness Extremities: no edema, pulses 2+ MSK: no joint deformities, normal ROM Neuro: no focal neuro deficits, moving all 4 extremities, CN2-12 intact. functional paraplegic. Able to move RUE. LUE ROM limited by severe L shoulder pain. 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 DVT prophylaxis ordered?: PROBLEMS: #. Leaking Wood catheter 2/2 bladder spasms which had been complicated by UTI -Chronic Wood for neurogenic bladder -Patient initially completed a 10 day course of antibiotic (cefepime) -Wood changed on 10/[address] Jenkins -Urology consulted, recommendations reviewed -Physiatry consulted, recommendations reviewed -Patient started on oxybutynin. May have had a reaction, now on Vesicare, increased dose of vesicare to 10 mg daily -Valium 1 mg BID for bladder spasms, may titrate up -Urology does not recommend suprapubic catheter, as will will likely not resolve issue of urine leakage #. Infected Sacral decubitus ulcer and bilateral ischial ulcer with acute osteomyelitis noted on CT abd/pelvis -Diverting colostomy completed 1 year ago to prevent infection of sacral decubitus ulcers -S/p debridement of sacral and bilateral ischial ulcers by Dr. Lopez on 09/13/2020 -Not a surgical candidate for flap -ID following, recommendations appreciated -Zosyn completed 36 days (out of 42). However,abx switched to meropenem and IV vancomycin due to hospital acquired pneumonia, which needs ESBL and MRSA coverage. - evaluated by Dr. Lucio on 11/08/20 - sputum growing serratia macesens and entrobacter. Both sensitive to levofloxacin. - will DC meropenem, switch to PO levofloxacin, which should provide adequate therapy for osteomylitis as well. - Dr. Reed will follow with qMonday evaluations. - D/w Dr. Lopez re-eval on 11/12/20 - much improved, c/w wound care daily. Nutriotional support - confirmed with Dr. Lucio - Levaquin x 10 days (EOT 11/20/20), DC vanco. #Sepsis 2/2 hospital acquired pneumonia - has been on IV zosyn for osteomyelitis of R ischium since 10/02/20 - risk factor for ESBL and MRSA infection - MRSA screen from 11/06/20 positive. - blood cultures, UA, sputum cx pending - dw Dr. Lucio. Switched to meropenem, and IV vancomycin - able to send cultures from [facility] today (11/07/20). If bacteremia, will remove. Currently have peripheral access - patient is afebrile today, and lactic acidosis has resolved. - final blood cultures pending - sputum growing serratia macesens and entrobacter. Both sensitive to levofloxacin - will DC meropenem, switch to PO levofloxacin, which should provide adequate therapy for osteomylitis as well. - continue vancomycin until 11/11/20 #L shoulder pain: - obtained orthopedic surgery consultation, recommendations greatly appreciate. D/w Dr. Dennis - hx of L shoulder AC degeneration, subacromial impingement, calcific tendonitis and a suspected rotator cuff tear - pending results of CT shoulder with 3D recon - recommending MRI of L shoulder, if our machine allows based on body habitus - recommends PT, passive range of motion exercises for calcific tendonitis - outpatient follow up on 11/22/[address] Mojica was arranged, however, will attempt eval by Dr. Mojica once back on service. - patient dimensions shoulder to shoulder 60 cm. Chest to back 33 cm. - ordered MR shoulder w wo contrast. #. Pain control -Patient had been receiving Suboxone illegally. -Tapered off of suboxone, rehab unable to provide -Stop famotidine prn, replace with pantoprazole -Physiatry consulted, recommendation appreciated -Added valium 1 mg BID for bladder spasms -Will c/w baclofen 5 mg TID -Oxycodone 15 mg q6h prn -Spoke with pain management, Darrian Odell ([phone]) -Wean off Gabapentin and start Lyrica. Gabapentin will be decreased to 600 TID, then BID, then daily, then off. At the same time, start Lyrica 100mg BID # Acute blood loss anemia 2/2 oozing from large sacral decubitus wounds and possibly left thigh hematoma -Discontinued lovenox and asa, will resume when hgb stable -CT abd/pelvis shows no retroperitoneal bleed -NO GI bleed noted -Total of 10u pRBC transfused during this hospitalization - unfortunately had to stop lovenox due to worsening anemia. #. RUE DVT -Was on therapeutic lovenox, but had to be DC due to worsening anemia #. Nausea and vomiting - reglan IV prn - zofran prn - dronabinol bid #. Acute on chronic iron deficient anemia -s/p 10 units transfused -Continue with iron supplementation -Continue with monitoring CBC - resumed lovenox, but hgb diminished to 8.4, will continue to monitor. #. Chronic lower extremity edema - furosemide resumed, decreased to 40 mg IV q12h due to rising BUN #. Chronic respiratory failure with hypoxia and hypercarbia with tracheostomy -At baseline -Continue with inhalers #. Chronic constipation -Patient on senna, docusate, MiraLax, lactulose -Improved #. Chronic diastolic CHF -echo repeated on 10/03/20 -EF 70-75%, Grade 1 DD, small pericardial effusion without compression, LVH #. Neuropathy with muscle spasms and chronic back pain with lumbosacral radiculopathy -Physiatry consulted, recommendations appreciated -Continue with gabapentin. -Baclofen 5 mg TID -patient has been weaned off suboxone, as difficulty in finding rehab that would administer suboxone #. Hypertension -BP is appropriate #.NIDDM type 2 -Continue with insulin sliding scale #. Hypothyroidism -Continue with levothyroxine #. Migraine headache -Continue with acetaminophen as needed # Dyslipidemia -Continue with atorvastatin, hold aspirin 2/2 low hgb #. GERD -Continue with pantoprazole #. Obestiy -BMI 45.9 -Complicates care #. Drug rash (now resolved) -improved after DC of oxybutinin -prn IV benadryl and topical hydrocortisone #. DVT ppx -Lovenox stopped 2/2 drop in hgb VS, I&O, 24H, Fishbone Vital Signs/I&O Vital Signs Date Time Temp Pulse Resp B/P (MAP) Pulse Ox O2 Delivery O2 Flow Rate FiO2 11/12/20 13:20 18 97 Trach Collar 11/12/20 06:00 98.6 96 114/77 (89) 10.0 40 I&O- Last 24 Hours up to 6 AM 11/12/20 06:00 Intake Total 1810 ml Output Total 2075 ml Balance -265 ml Laboratory Data 24H LABS Laboratory Tests 2 11/11/20 16:30: Bedside Glucose (Misc Panel) 162H 11/11/20 20:16: Bedside Glucose (Misc Panel) 132H 11/12/20 05:46: Immature Granulocyte % (Auto) 1.7, Neutrophils (%) (Auto) 57.2, Lymphocytes (%) (Auto) 14.7L, Monocytes (%) (Auto) 10.7H, Eosinophils (%) (Auto) 15.1H, Basophils (%) (Auto) 0.6, Neutrophils # (Auto) 7.4, Lymphocytes # (Auto) 1.9, Monocytes # (Auto) 1.4H, Eosinophils # (Auto) 1.9H, Basophils # (Auto) 0.1, Nucleated Red Blood Cells % (auto) 0.0, Anion Gap 5L, Glomerular Filtration Rate > 60.0, Calcium Level 8.4L, Magnesium Level 2.1, Total Bilirubin 0.2, Aspartate Amino Transf (AST/SGOT) 17, Alanine Aminotransferase (ALT/SGPT) 15, Alkaline Phosphatase 115, Total Protein 6.1L, Albumin 1.8L, Albumin/Globulin Ratio 0.4L, Vancomycin Level Trough 17.2 11/12/20 12:11: Bedside Glucose (Misc Panel) 165H CBC/BMP Laboratory Tests 11/12/20 05:46 Microbiology Microbiology 11/07/20 Blood Culture - Final, Complete NO GROWTH AFTER 5 DAYS 11/07/20 Blood Culture - Final, Complete NO GROWTH AFTER 5 DAYS 11/06/20 Gram Stain - Final, Resulted 11/06/20 Sputum Culture - Preliminary, Resulted Serratia Marcescens Enterobacter Cloacae Yeast Like Organism 11/06/20 Blood Culture - Final, Complete NO GROWTH AFTER 5 DAYS 11/06/20 Blood Culture - Final, Complete NO GROWTH AFTER 5 DAYS FISH MOSHER MD Nov 12, 2020 13:35
[2020-11-12 14:00] VITALS: BP 113/69
[2020-11-12] MEDS: LevoFLOXacin 750 MG TABLET PO SCH (17:51)
[2020-11-12 19:25] VITALS: O2SAT 96
[2020-11-12] MEDS: ATORVASTATIN 20 MG TAB PO SCH (21:34)
[2020-11-12] MEDS: SENOKOT S TAB PO SCH (21:37)
[2020-11-12] MEDS: **NOTE PATIENT COMMENT** MISC XX SCH (21:41)
[2020-11-12 22:00] VITALS: BP 116/71
[2020-11-13] MEDS: FUROSEMIDE 40MG/4ML VIAL (J1940) IV SCH ×2 (04:30→17:40)
[2020-11-13] MEDS: oxyCODONE 5MG TAB PO PRN ×3 (04:31→22:00)
[2020-11-13] MEDS: SODIUM CHLORIDE 0.9% INJ 10 ML SYR IV SCH ×2 (04:32→17:42)
[2020-11-13] MEDS: LEVOTHYROXINE 50MCG TABLET (0.05MG) PO SCH (05:25)
[2020-11-13 06:00] VITALS: BP 135/85
[2020-11-13 07:08] LABS: ALBUMIN 1.9 GM/DL (3.2-5.2); ALT/SGPT 16 U/L (12-78); BILIRUBIN,TOTAL 0.2 MG/DL (0.2-1.0); BLOOD UREA NITROGEN 18 MG/DL (7-18); CALCIUM LEVEL 8.5 MG/DL (8.8-10.2); CARBON DIOXIDE LEVEL 36 MEQ/L (21-32); CHLORIDE LEVEL 97 MEQ/L (98-107); CREATININE FOR GFR 0.42 MG/DL (0.55-1.30); GLOMERULAR FILTRATION RATE > 60.0 (>45); GLUCOSE, FASTING 149 MG/DL (70-100); MAGNESIUM LEVEL 2.3 MG/DL (1.8-2.4); POTASSIUM SERUM 4.3 MEQ/L (3.5-5.1); SODIUM LEVEL 136 MEQ/L (136-145); TOTAL PROTEIN 6.7 GM/DL (6.4-8.2)
[2020-11-13] MEDS: SUCRALFATE SUSP 1GM/10ML UD PO SCH ×4 (09:44→22:02)
[2020-11-13] MEDS: LACTULOSE 20 GM/30 ML SYRUP UD PO SCH (09:45)
[2020-11-13] MEDS: HumaLOG INSULIN (NovoLOG) PER UNIT SC SCH ×4 (09:46→21:00)
[2020-11-13] MEDS: FOLIC ACID 1 MG TAB PO SCH (09:47)
[2020-11-13] MEDS: BACLOFEN 5MG PER 1/2 TABLET PO SCH ×3 (09:47→21:59)
[2020-11-13] MEDS: PREGABALIN 100 MG CAP (LYRICA) PO SCH ×2 (09:48→21:59)
[2020-11-13] MEDS: SOLIFENACIN 5 MG TAB PO SCH (09:48)
[2020-11-13] MEDS: GABAPENTIN 300 MG CAP PO SCH ×2 (09:48→21:59)
[2020-11-13] MEDS: PANTOPRAZOLE 40MG TAB (PROTONIX) PO SCH (09:48)
[2020-11-13] MEDS: MAGNESIUM OXIDE 400MG TAB (MAG-OX) PO SCH ×2 (09:48→21:59)
[2020-11-13] MEDS: diazePAM 2 MG TAB PO SCH ×2 (09:48→21:59)
[2020-11-13] MEDS: CYANOCOBALAMIN 250 MCG TABLET PO SCH (09:48)
[2020-11-13] MEDS: POTASSIUM CHLORIDE 10MEQ SR TABLET PO SCH ×2 (09:49→22:00)
[2020-11-13] MEDS: ANALGESIC BALM CRM 3OZ TOP SCH ×3 (09:49→22:01)
[2020-11-13] MEDS: NYSTATIN 100,000 UNITS/GM TOPICAL PWD 15 GM TOP SCH ×2 (09:49→22:01)
[2020-11-13] MEDS: DIAPER RELIEF PASTE (DESITIN) 60GM TOP SCH ×2 (09:49→22:00)
[2020-11-13] MEDS: LIDOCAINE 5% (LIDODERM) PATCH TD SCH (09:50)
[2020-11-13 14:00] VITALS: BP 119/59
--- NOTE | 2020-11-13 15:37 | IPN ---
PROGRESS NOTE DATE: 11/13/2020 Nadege seems to be doing better today. She was seen by Dr. Lopez and hospitalist on rounds. Dr. Cunningham has discontinued intravenous (IV) antibiotics and switched her to oral Levaquin based on sputum culture. PHYSICAL EXAMINATION: Lying in bed in no acute distress. Sacrum clean with granulation tissue. Moderate drainage. No odor. Left ischium ulcer also has green granulating tissue with moderate drainage and right ischial ulcer as well. Lungs are clear bilaterally. Heart: Normal S1, S2. No murmurs. Abdomen: Morbidly obese with colostomy, left lower quadrant. LABORATORY DATA: White count is 12.9, hemoglobin 8, hematocrit 26.6, platelets 495, 57% neutrophils, 14% lymphocytes, 10% monocytes. Sodium 138, potassium 4.5, chloride 99, bicarbonate 34, BUN 17, creatinine 0.32, glucose 102, calcium 8.4. Last CRP done on November 08 was 14.3. Sputum culture had Serratia marcescens, Enterobacter cloacae, both susceptible to levofloxacin and yeast-like organism. Blood cultures from November 07 were negative. Chest x-ray done on November 08 showed bibasilar opacities. IMPRESSION: 1. Hospital-acquired pneumonia with culture positive for Serratia and Enterobacter. Patient has clinically improved with IV vancomycin and meropenem, which were discontinued. Patient has been switched to levofloxacin at 750 mg daily for treatment of hospital-acquired pneumonia. She already has received 4 days of meropenem. Suggest continuing levofloxacin for a total of 6 days. 2. Sacral decubitus ulcer with osteomyelitis of the left hip. Patient has finished 5 weeks of intravenous (IV) Zosyn and 5 days of meropenem, currently on Levaquin, and I would consider her treatment for osteomyelitis with a total of 6 weeks of broad-spectrum antibiotics. PLAN: Repeat complete blood count (CBC), erythrocyte sedimentation rate (ESR), C-reactive protein (CRP) weekly to follow on osteomyelitis.
[2020-11-13 16:45] VITALS: O2SAT 94
[2020-11-13] MEDS: LevoFLOXacin 750 MG TABLET PO SCH (17:39)
[2020-11-13] MEDS: **NOTE PATIENT COMMENT** MISC XX SCH (21:00)
[2020-11-13] MEDS: ATORVASTATIN 20 MG TAB PO SCH (21:59)
[2020-11-13 22:00] VITALS: BP 115/57
[2020-11-13] MEDS: SENOKOT S TAB PO SCH (22:03)
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
[2020-11-13 22:38] VITALS: O2SAT 98
[2020-11-13] MEDS: ALBUTEROL SULFATE 2.5 MG/0.5 ML INH NEB SOLN NEB SCH (23:40)
[2020-11-14] MEDS: FUROSEMIDE 40MG/4ML VIAL (J1940) IV SCH (04:42)
[2020-11-14] MEDS: SODIUM CHLORIDE 0.9% INJ 10 ML SYR IV SCH ×2 (04:43→17:51)
[2020-11-14] MEDS: LEVOTHYROXINE 50MCG TABLET (0.05MG) PO SCH (05:13)
[2020-11-14 06:00] VITALS: BP 113/58
[2020-11-14] MEDS: ALBUTEROL SULFATE 2.5 MG/0.5 ML INH NEB SOLN NEB SCH ×2 (07:19→13:39)
[2020-11-14] MEDS: LACTULOSE 20 GM/30 ML SYRUP UD PO SCH (10:10)
[2020-11-14] MEDS: SUCRALFATE SUSP 1GM/10ML UD PO SCH ×4 (10:10→21:54)
[2020-11-14] MEDS: HumaLOG INSULIN (NovoLOG) PER UNIT SC SCH ×4 (10:10→21:00)
[2020-11-14] MEDS: LIDOCAINE 5% (LIDODERM) PATCH TD SCH (10:10)
[2020-11-14] MEDS: GABAPENTIN 300 MG CAP PO SCH ×2 (10:11→21:54)
[2020-11-14] MEDS: ASPIRIN 81MG ENTERIC TABLET PO SCH (10:11)
[2020-11-14] MEDS: BACLOFEN 5MG PER 1/2 TABLET PO SCH ×3 (10:11→21:54)
[2020-11-14] MEDS: PANTOPRAZOLE 40MG TAB (PROTONIX) PO SCH (10:11)
[2020-11-14] MEDS: PREGABALIN 100 MG CAP (LYRICA) PO SCH ×2 (10:11→21:54)
[2020-11-14] MEDS: CYANOCOBALAMIN 250 MCG TABLET PO SCH (10:11)
[2020-11-14] MEDS: diazePAM 2 MG TAB PO SCH ×2 (10:11→21:55)
[2020-11-14] MEDS: POTASSIUM CHLORIDE 10MEQ SR TABLET PO SCH ×2 (10:11→21:55)
[2020-11-14] MEDS: MAGNESIUM OXIDE 400MG TAB (MAG-OX) PO SCH ×2 (10:12→21:55)
[2020-11-14] MEDS: NYSTATIN 100,000 UNITS/GM TOPICAL PWD 15 GM TOP SCH ×2 (10:12→21:56)
[2020-11-14] MEDS: FOLIC ACID 1 MG TAB PO SCH (10:12)
[2020-11-14] MEDS: SOLIFENACIN 5 MG TAB PO SCH (10:12)
[2020-11-14] MEDS: DIAPER RELIEF PASTE (DESITIN) 60GM TOP SCH ×2 (10:13→20:27)
[2020-11-14] MEDS: ANALGESIC BALM CRM 3OZ TOP SCH ×3 (10:13→21:56)
[2020-11-14] MEDS: oxyCODONE 5MG TAB PO PRN ×2 (10:27→17:49)
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
[2020-11-14 14:00] VITALS: BP 132/72
[2020-11-14 15:56] VITALS: O2SAT 96
[2020-11-14] MEDS: TORSEMIDE 20 MG TAB PO SCH (17:49)
[2020-11-14] MEDS: LevoFLOXacin 750 MG TABLET PO SCH (17:49)
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
[2020-11-14] MEDS: SENOKOT S TAB PO SCH (21:54)
[2020-11-14] MEDS: **NOTE PATIENT COMMENT** MISC XX SCH (21:55)
[2020-11-14] MEDS: ATORVASTATIN 20 MG TAB PO SCH (21:55)
[2020-11-14 22:00] VITALS: BP 129/72
[2020-11-15] MEDS: ALBUTEROL SULFATE 2.5 MG/0.5 ML INH NEB SOLN NEB SCH ×4 (00:01→23:22)
[2020-11-15 04:41] VITALS: O2SAT 97
[2020-11-15] MEDS: LEVOTHYROXINE 50MCG TABLET (0.05MG) PO SCH (05:45)
[2020-11-15] MEDS: SODIUM CHLORIDE 0.9% INJ 10 ML SYR IV SCH ×2 (05:45→17:53)
[2020-11-15] MEDS: oxyCODONE 5MG TAB PO PRN ×3 (05:46→23:19)
[2020-11-15 06:00] VITALS: BP_DIAS 75
[2020-11-15] MEDS: SUCRALFATE SUSP 1GM/10ML UD PO SCH ×4 (08:48→20:25)
[2020-11-15] MEDS: LACTULOSE 20 GM/30 ML SYRUP UD PO SCH (08:49)
[2020-11-15] MEDS: HumaLOG INSULIN (NovoLOG) PER UNIT SC SCH ×4 (08:49→20:14)
[2020-11-15] MEDS: diazePAM 2 MG TAB PO SCH ×2 (08:50→20:26)
[2020-11-15] MEDS: BACLOFEN 5MG PER 1/2 TABLET PO SCH ×3 (08:50→20:25)
[2020-11-15] MEDS: PREGABALIN 100 MG CAP (LYRICA) PO SCH ×2 (08:50→20:25)
[2020-11-15] MEDS: MAGNESIUM OXIDE 400MG TAB (MAG-OX) PO SCH ×2 (08:50→20:26)
[2020-11-15] MEDS: PANTOPRAZOLE 40MG TAB (PROTONIX) PO SCH (08:50)
[2020-11-15] MEDS: TORSEMIDE 20 MG TAB PO SCH ×2 (08:50→17:51)
[2020-11-15] MEDS: SOLIFENACIN 5 MG TAB PO SCH (08:50)
[2020-11-15] MEDS: CYANOCOBALAMIN 250 MCG TABLET PO SCH (08:50)
[2020-11-15] MEDS: POTASSIUM CHLORIDE 10MEQ SR TABLET PO SCH ×2 (08:51→20:25)
[2020-11-15] MEDS: ANALGESIC BALM CRM 3OZ TOP SCH ×3 (08:51→20:25)
[2020-11-15] MEDS: ASPIRIN 81MG ENTERIC TABLET PO SCH (08:51)
[2020-11-15] MEDS: GABAPENTIN 300 MG CAP PO SCH (08:51)
[2020-11-15] MEDS: FOLIC ACID 1 MG TAB PO SCH (08:51)
[2020-11-15] MEDS: LIDOCAINE 5% (LIDODERM) PATCH TD SCH (08:52)
[2020-11-15] MEDS: NYSTATIN 100,000 UNITS/GM TOPICAL PWD 15 GM TOP SCH ×2 (08:52→20:26)
[2020-11-15 14:00] VITALS: BP 98/63
[2020-11-15] MEDS: LevoFLOXacin 750 MG TABLET PO SCH (17:51)
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
[2020-11-15] MEDS: SENOKOT S TAB PO SCH (20:25)
[2020-11-15] MEDS: ATORVASTATIN 20 MG TAB PO SCH (20:25)
[2020-11-15] MEDS: **NOTE PATIENT COMMENT** MISC XX SCH (20:26)
[2020-11-15 22:00] VITALS: BP 118/58
[2020-11-16 04:09] VITALS: O2SAT 96
[2020-11-16] MEDS: LEVOTHYROXINE 50MCG TABLET (0.05MG) PO SCH (05:46)
[2020-11-16] MEDS: oxyCODONE 5MG TAB PO PRN ×3 (05:47→17:30)
[2020-11-16] MEDS: SODIUM CHLORIDE 0.9% INJ 10 ML SYR IV SCH ×2 (05:48→17:29)
[2020-11-16 06:00] VITALS: BP 110/59
[2020-11-16] MEDS: ALBUTEROL SULFATE 2.5 MG/0.5 ML INH NEB SOLN NEB SCH ×3 (07:15→22:06)
[2020-11-16] MEDS: SUCRALFATE SUSP 1GM/10ML UD PO SCH ×4 (07:30→21:51)
[2020-11-16] MEDS: HumaLOG INSULIN (NovoLOG) PER UNIT SC SCH ×4 (07:30→21:00)
[2020-11-16] MEDS: PANTOPRAZOLE 40MG TAB (PROTONIX) PO SCH (09:59)
[2020-11-16] MEDS: BACLOFEN 5MG PER 1/2 TABLET PO SCH ×3 (09:59→21:51)
[2020-11-16] MEDS: CYANOCOBALAMIN 250 MCG TABLET PO SCH (09:59)
[2020-11-16] MEDS: MAGNESIUM OXIDE 400MG TAB (MAG-OX) PO SCH ×2 (09:59→21:51)
[2020-11-16] MEDS: PREGABALIN 100 MG CAP (LYRICA) PO SCH ×2 (09:59→21:51)
[2020-11-16] MEDS: diazePAM 2 MG TAB PO SCH ×2 (09:59→21:51)
[2020-11-16] MEDS: ASPIRIN 81MG ENTERIC TABLET PO SCH (09:59)
[2020-11-16] MEDS: FOLIC ACID 1 MG TAB PO SCH (09:59)
[2020-11-16] MEDS: GABAPENTIN 300 MG CAP PO SCH (09:59)
[2020-11-16] MEDS: LACTULOSE 20 GM/30 ML SYRUP UD PO SCH (09:59)
[2020-11-16] MEDS: SOLIFENACIN 5 MG TAB PO SCH (09:59)
[2020-11-16] MEDS: TORSEMIDE 20 MG TAB PO SCH (09:59)
[2020-11-16] MEDS: NYSTATIN 100,000 UNITS/GM TOPICAL PWD 15 GM TOP SCH ×2 (10:00→21:52)
[2020-11-16] MEDS: ANALGESIC BALM CRM 3OZ TOP SCH ×4 (10:00→21:52)
[2020-11-16] MEDS: LIDOCAINE 5% (LIDODERM) PATCH TD SCH (10:00)
[2020-11-16] MEDS: POTASSIUM CHLORIDE 10MEQ SR TABLET PO SCH ×2 (10:00→21:52)
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
[2020-11-16] MEDS ORDERED: metOLazone 5 MG TAB PO ONE (12:15)
[2020-11-16] MEDS ORDERED: FUROSEMIDE injection 250 MG in D5W 225 ML IV SCH (14:00)
[2020-11-16] MEDS ORDERED: FUROSEMIDE 100MG/10ML VIAL (J1940) IV SCH (17:00)
[2020-11-16] MEDS: LevoFLOXacin 750 MG TABLET PO SCH (17:28)
[2020-11-16 21:00] VITALS: O2SAT 96
[2020-11-16] MEDS: SENOKOT S TAB PO SCH (21:51)
[2020-11-16] MEDS: **NOTE PATIENT COMMENT** MISC XX SCH (21:52)
[2020-11-16] MEDS: ATORVASTATIN 20 MG TAB PO SCH (21:53)
[2020-11-16 22:00] VITALS: BP 119/64
[2020-11-17 06:00] VITALS: BP 104/55
[2020-11-17] MEDS: METOCLOPRAMIDE 10 MG TAB PO PRN (06:06)
[2020-11-17] MEDS: LEVOTHYROXINE 50MCG TABLET (0.05MG) PO SCH (06:06)
[2020-11-17] MEDS: SODIUM CHLORIDE 0.9% INJ 10 ML SYR IV SCH ×2 (06:07→17:24)
[2020-11-17] MEDS: oxyCODONE 5MG TAB PO PRN ×3 (06:08→21:44)
[2020-11-17 06:53] LABS: BASO # 0.1 10^3/uL (0.0-0.2); BASO % 0.7 % (0.0-1.0); EOS # 1.2 10^3/uL (0.0-0.5); EOS % 8.8 % (0.0-3.0); HEMATOCRIT 30.3 % (36.0-47.0); HEMOGLOBIN 9.2 g/dl (12.0-15.5); LYMPH # 1.6 10^3/uL (1.5-5.0); LYMPH % 11.4 % (24.0-44.0); MEAN CORPUSCULAR HEMOGLOBIN 27.1 pg (27.0-33.0); MEAN CORPUSCULAR HGB CONC 30.4 g/dl (32.0-36.5); MEAN CORPUSCULAR VOLUME 89.4 fl (80.0-96.0); MONO # 1.3 10^3/uL (0.0-0.8); MONO % 9.7 % (2.0-8.0); NEUTROPHILS # 9.3 10^3/uL (1.5-8.5); NEUTROPHILS % 68.8 % (36.0-66.0); PLATELET COUNT, AUTOMATED 520 10^3/uL (150-450); RED BLOOD COUNT 3.39 10^6/uL (4.00-5.40); WHITE BLOOD COUNT 13.6 10^3/uL (4.0-10.0)
[2020-11-17 07:17] LABS: ALBUMIN 2.1 GM/DL (3.2-5.2); ALT/SGPT 36 U/L (12-78); BILIRUBIN,TOTAL 0.3 MG/DL (0.2-1.0); BLOOD UREA NITROGEN 19 MG/DL (7-18); CALCIUM LEVEL 8.9 MG/DL (8.8-10.2); CARBON DIOXIDE LEVEL 39 MEQ/L (21-32); CHLORIDE LEVEL 90 MEQ/L (98-107); CREATININE FOR GFR 0.55 MG/DL (0.55-1.30); GLOMERULAR FILTRATION RATE > 60.0 (>45); GLUCOSE, FASTING 162 MG/DL (70-100); POTASSIUM SERUM 3.5 MEQ/L (3.5-5.1); SODIUM LEVEL 136 MEQ/L (136-145)
[2020-11-17 07:41] VITALS: O2SAT 95
[2020-11-17] MEDS: ALBUTEROL SULFATE 2.5 MG/0.5 ML INH NEB SOLN NEB SCH ×3 (07:41→23:20)
[2020-11-17] MEDS ORDERED: metOLazone 5 MG TAB PO SCH (09:00)
[2020-11-17] MEDS: SOLIFENACIN 5 MG TAB PO SCH (09:25)
[2020-11-17] MEDS: GABAPENTIN 300 MG CAP PO SCH (09:25)
[2020-11-17] MEDS: BACLOFEN 5MG PER 1/2 TABLET PO SCH ×3 (09:25→21:40)
[2020-11-17] MEDS: FOLIC ACID 1 MG TAB PO SCH (09:25)
[2020-11-17] MEDS: diazePAM 2 MG TAB PO SCH ×2 (09:25→21:39)
[2020-11-17] MEDS: ASPIRIN 81MG ENTERIC TABLET PO SCH (09:25)
[2020-11-17] MEDS: PANTOPRAZOLE 40MG TAB (PROTONIX) PO SCH (09:25)
[2020-11-17] MEDS: LACTULOSE 20 GM/30 ML SYRUP UD PO SCH (09:26)
[2020-11-17] MEDS: MAGNESIUM OXIDE 400MG TAB (MAG-OX) PO SCH ×2 (09:26→21:39)
[2020-11-17] MEDS: SUCRALFATE SUSP 1GM/10ML UD PO SCH ×4 (09:26→21:38)
[2020-11-17] MEDS: POTASSIUM CHLORIDE 10MEQ SR TABLET PO SCH ×2 (09:26→21:39)
[2020-11-17] MEDS: CYANOCOBALAMIN 250 MCG TABLET PO SCH (09:26)
[2020-11-17] MEDS: PREGABALIN 100 MG CAP (LYRICA) PO SCH ×2 (09:26→21:39)
[2020-11-17] MEDS: LIDOCAINE 5% (LIDODERM) PATCH TD SCH (09:27)
[2020-11-17] MEDS: HumaLOG INSULIN (NovoLOG) PER UNIT SC SCH ×4 (09:27→21:00)
[2020-11-17] MEDS: ANALGESIC BALM CRM 3OZ TOP SCH ×4 (09:27→21:38)
[2020-11-17] MEDS: NYSTATIN 100,000 UNITS/GM TOPICAL PWD 15 GM TOP SCH ×2 (09:28→21:40)
[2020-11-17 11:35] VITALS: O2SAT 96
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
[2020-11-17 14:00] VITALS: BP 115/75
[2020-11-17] MEDS: LevoFLOXacin 750 MG TABLET PO SCH (17:23)
[2020-11-17] MEDS: ATORVASTATIN 20 MG TAB PO SCH (21:39)
[2020-11-17] MEDS: **NOTE PATIENT COMMENT** MISC XX SCH (21:40)
[2020-11-17] MEDS: SENOKOT S TAB PO SCH (21:40)
[2020-11-17 22:00] VITALS: BP 113/67
[2020-11-17 23:34] VITALS: O2SAT 92
[2020-11-18 06:00] VITALS: BP 120/57
[2020-11-18] MEDS: LEVOTHYROXINE 50MCG TABLET (0.05MG) PO SCH (06:17)
[2020-11-18] MEDS: SODIUM CHLORIDE 0.9% INJ 10 ML SYR IV SCH ×2 (06:17→17:43)
[2020-11-18] MEDS: oxyCODONE 5MG TAB PO PRN ×2 (06:18→18:48)
[2020-11-18 06:34] LABS: BASO # 0.1 10^3/uL (0.0-0.2); BASO % 0.8 % (0.0-1.0); EOS # 0.9 10^3/uL (0.0-0.5); EOS % 7.2 % (0.0-3.0); HEMATOCRIT 29.6 % (36.0-47.0); LYMPH # 1.9 10^3/uL (1.5-5.0); LYMPH % 14.9 % (24.0-44.0); MEAN CORPUSCULAR HEMOGLOBIN 26.9 pg (27.0-33.0); MEAN CORPUSCULAR HGB CONC 30.4 g/dl (32.0-36.5); MEAN CORPUSCULAR VOLUME 88.6 fl (80.0-96.0); MONO # 1.5 10^3/uL (0.0-0.8); MONO % 11.9 % (2.0-8.0); NEUTROPHILS % 64.6 % (36.0-66.0); PLATELET COUNT, AUTOMATED 480 10^3/uL (150-450); RED BLOOD COUNT 3.34 10^6/uL (4.00-5.40); WHITE BLOOD COUNT 12.5 10^3/uL (4.0-10.0)
[2020-11-18 07:02] LABS: BLOOD UREA NITROGEN 21 MG/DL (7-18); CALCIUM LEVEL 8.9 MG/DL (8.8-10.2); CARBON DIOXIDE LEVEL 41 MEQ/L (21-32); CHLORIDE LEVEL 90 MEQ/L (98-107); CREATININE FOR GFR 0.52 MG/DL (0.55-1.30); GLOMERULAR FILTRATION RATE > 60.0 (>45); GLUCOSE, FASTING 133 MG/DL (70-100); POTASSIUM SERUM 3.4 MEQ/L (3.5-5.1); SODIUM LEVEL 134 MEQ/L (136-145)
[2020-11-18] MEDS: ALBUTEROL SULFATE 2.5 MG/0.5 ML INH NEB SOLN NEB SCH ×3 (07:28→23:04)
[2020-11-18 08:15] LABS: ALBUMIN 2.1 GM/DL (3.2-5.2)
[2020-11-18] MEDS: LACTULOSE 20 GM/30 ML SYRUP UD PO SCH (09:26)
[2020-11-18] MEDS: SUCRALFATE SUSP 1GM/10ML UD PO SCH ×4 (09:26→22:55)
[2020-11-18] MEDS: ANALGESIC BALM CRM 3OZ TOP SCH ×4 (09:27→22:57)
[2020-11-18] MEDS: HumaLOG INSULIN (NovoLOG) PER UNIT SC SCH ×5 (09:27→23:00)
[2020-11-18] MEDS: BACLOFEN 5MG PER 1/2 TABLET PO SCH ×3 (09:28→22:56)
[2020-11-18] MEDS: NYSTATIN 100,000 UNITS/GM TOPICAL PWD 15 GM TOP SCH ×2 (09:28→22:57)
[2020-11-18] MEDS: SOLIFENACIN 5 MG TAB PO SCH (09:28)
[2020-11-18] MEDS: POTASSIUM CHLORIDE 10MEQ SR TABLET PO SCH ×2 (09:28→22:55)
[2020-11-18] MEDS: PANTOPRAZOLE 40MG TAB (PROTONIX) PO SCH (09:28)
[2020-11-18] MEDS: ASPIRIN 81MG ENTERIC TABLET PO SCH (09:28)
[2020-11-18] MEDS: PREGABALIN 100 MG CAP (LYRICA) PO SCH ×2 (09:29→22:59)
[2020-11-18] MEDS: FOLIC ACID 1 MG TAB PO SCH (09:29)
[2020-11-18] MEDS: GABAPENTIN 300 MG CAP PO SCH (09:29)
[2020-11-18] MEDS: diazePAM 2 MG TAB PO SCH ×2 (09:30→22:56)
[2020-11-18] MEDS: CYANOCOBALAMIN 250 MCG TABLET PO SCH (09:30)
[2020-11-18] MEDS: MAGNESIUM OXIDE 400MG TAB (MAG-OX) PO SCH ×2 (09:30→22:55)
[2020-11-18] MEDS: LIDOCAINE 5% (LIDODERM) PATCH TD SCH (09:31)
[2020-11-18 10:12] VITALS: O2SAT 96
[2020-11-18] MEDS: METOCLOPRAMIDE 10 MG TAB PO PRN (12:22)
[2020-11-18 14:00] VITALS: BP 129/82
[2020-11-18] MEDS: LevoFLOXacin 750 MG TABLET PO SCH (17:44)
[2020-11-18 22:00] VITALS: BP 111/58
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
[2020-11-18] MEDS: **NOTE PATIENT COMMENT** MISC XX SCH (22:56)
[2020-11-18] MEDS: SENOKOT S TAB PO SCH (22:56)
[2020-11-18] MEDS: ATORVASTATIN 20 MG TAB PO SCH (22:56)
[2020-11-19 03:10] VITALS: O2SAT 92
[2020-11-19 04:41] VITALS: O2SAT 99
[2020-11-19] MEDS: LEVOTHYROXINE 50MCG TABLET (0.05MG) PO SCH (05:33)
[2020-11-19] MEDS: SODIUM CHLORIDE 0.9% INJ 10 ML SYR IV SCH ×2 (05:33→17:43)
[2020-11-19] MEDS: oxyCODONE 5MG TAB PO PRN ×2 (05:34→16:00)
[2020-11-19 06:00] VITALS: BP 129/80
[2020-11-19 06:27] LABS: HEMATOCRIT 29.7 % (36.0-47.0); HEMOGLOBIN 9.1 g/dl (12.0-15.5); MEAN CORPUSCULAR HEMOGLOBIN 27.4 pg (27.0-33.0); MEAN CORPUSCULAR HGB CONC 30.6 g/dl (32.0-36.5); MEAN CORPUSCULAR VOLUME 89.5 fl (80.0-96.0); PLATELET COUNT, AUTOMATED 477 10^3/uL (150-450); RED BLOOD COUNT 3.32 10^6/uL (4.00-5.40); WHITE BLOOD COUNT 9.5 10^3/uL (4.0-10.0)
[2020-11-19 06:47] LABS: BLOOD UREA NITROGEN 16 MG/DL (7-18); CALCIUM LEVEL 9.2 MG/DL (8.8-10.2); CARBON DIOXIDE LEVEL 39 MEQ/L (21-32); CHLORIDE LEVEL 94 MEQ/L (98-107); CREATININE FOR GFR 0.47 MG/DL (0.55-1.30); GLOMERULAR FILTRATION RATE > 60.0 (>45); GLUCOSE, FASTING 126 MG/DL (70-100); POTASSIUM SERUM 3.4 MEQ/L (3.5-5.1); SODIUM LEVEL 135 MEQ/L (136-145)
[2020-11-19] MEDS: ALBUTEROL SULFATE 2.5 MG/0.5 ML INH NEB SOLN NEB SCH ×2 (07:25→15:10)
[2020-11-19] MEDS ORDERED: POTASSIUM CHLORIDE 10MEQ SR TABLET PO ONE (08:00)
[2020-11-19] MEDS ORDERED: metOLazone 5 MG TAB PO ONE (08:00)
[2020-11-19] MEDS: SUCRALFATE SUSP 1GM/10ML UD PO SCH ×4 (08:36→20:40)
[2020-11-19] MEDS: SOLIFENACIN 5 MG TAB PO SCH (08:37)
[2020-11-19] MEDS: HumaLOG INSULIN (NovoLOG) PER UNIT SC SCH ×4 (08:37→21:00)
[2020-11-19] MEDS: LACTULOSE 20 GM/30 ML SYRUP UD PO SCH (08:37)
[2020-11-19] MEDS: ANALGESIC BALM CRM 3OZ TOP SCH ×4 (08:37→20:40)
[2020-11-19] MEDS: MAGNESIUM OXIDE 400MG TAB (MAG-OX) PO SCH ×2 (08:38→20:39)
[2020-11-19] MEDS: GABAPENTIN 300 MG CAP PO SCH (08:38)
[2020-11-19] MEDS: BACLOFEN 5MG PER 1/2 TABLET PO SCH ×3 (08:38→20:39)
[2020-11-19] MEDS: PREGABALIN 100 MG CAP (LYRICA) PO SCH ×2 (08:38→20:39)
[2020-11-19] MEDS: PANTOPRAZOLE 40MG TAB (PROTONIX) PO SCH (08:38)
[2020-11-19] MEDS: ASPIRIN 81MG ENTERIC TABLET PO SCH (08:38)
[2020-11-19] MEDS: FOLIC ACID 1 MG TAB PO SCH (08:38)
[2020-11-19] MEDS: CYANOCOBALAMIN 250 MCG TABLET PO SCH (08:38)
[2020-11-19] MEDS: NYSTATIN 100,000 UNITS/GM TOPICAL PWD 15 GM TOP SCH ×2 (08:39→20:40)
[2020-11-19] MEDS: LIDOCAINE 5% (LIDODERM) PATCH TD SCH (08:39)
[2020-11-19] MEDS: diazePAM 2 MG TAB PO SCH ×2 (08:43→20:40)
[2020-11-19] MEDS ORDERED: FUROSEMIDE injection 250 MG in D5W 225 ML IV SCH (10:00)
[2020-11-19] MEDS: FUROSEMIDE injection 250 MG in D5W 225 ML IV SCH (10:09)
[2020-11-19] MEDS: POTASSIUM CHLORIDE 10MEQ SR TABLET PO SCH ×2 (10:10→20:39)
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
[2020-11-19 13:55] VITALS: BP 126/80
[2020-11-19] MEDS: LevoFLOXacin 750 MG TABLET PO SCH (17:42)
--- NOTE | 2020-11-19 18:58 | IPN ---
INFECTIOUS DISEASE PROGRESS NOTE DATE: 11/19/2020 SUBJECTIVE: Nadege seems to be in good spirits today. Choco is at the bedside, her significant other, who states he wants to take her home when she is clinically stable. She has had no fever or chills. Cough and shortness of breath have markedly improved. She had her dressing changes done today while I was there. She is afebrile. MEDICATIONS: - furosemide 250 mg intravenous (IV) every 24 hours. - levofloxacin 750 mg by mouth daily, currently day #02/08 PHYSICAL EXAMINATION: Temperature 97.9, pulse 87, respirations 17, blood pressure 126/80, oxygen saturation 95% on 40% FiO2. HEART: Normal S1, S2. No murmurs. LUNGS: Diminished breath sounds at the bases, but clear. ABDOMEN: Morbidly obese. Soft, nontender. Left lower quadrant colostomy with soft stools. EXTREMITIES: Plus 1 pitting edema bilaterally, markedly improved. SKIN: Large decubitus ulcer stage IV with a central area of necrosis, black eschar in the middle of the sacral decubitus, measuring about 4 x 3 cm. Ischial ulcers on the left side, large, deep, stage IV on the right side, pretty shallow, without any evidence of infection. The right one measures about 7 x 3 cm with granulation tissue. LABORATORY DATA: White count 9.5, hemoglobin 9.1, hematocrit 29.7, platelets 477. Sodium 135, potassium 3.4, chloride 94, bicarbonate 39, BUN 16, creatinine 0.47, glucose 126, calcium 9.2. IMPRESSION: 1. Sacral decubitus ulcer with osteomyelitis of the left hip, finished five weeks of IV Zosyn, meropenem and now Levaquin with last dose being today, status post debridement of bilateral sacral decubitus. There is an area of central eschar that may need further debridement. Will discuss with Dr. Lopez. 2. Hospital-acquired pneumonia on levofloxacin, currently day #02/08. 3. Chronic Wood catheter due to urinary incontinence. PLAN: Discontinue antibiotics after tonight's dose. Will obtain a followup C-reactive protein (CRP) and CBC in the morning.
[2020-11-19 19:50] VITALS: O2SAT 95
[2020-11-19] MEDS: ATORVASTATIN 20 MG TAB PO SCH (20:39)
[2020-11-19] MEDS: SENOKOT S TAB PO SCH (20:39)
[2020-11-19] MEDS: **NOTE PATIENT COMMENT** MISC XX SCH (20:40)
[2020-11-19 22:00] VITALS: BP 117/76
[2020-11-20] MEDS: ALBUTEROL SULFATE 2.5 MG/0.5 ML INH NEB SOLN NEB SCH ×4 (00:30→23:32)
[2020-11-20 00:31] VITALS: O2SAT 97
[2020-11-20] MEDS: oxyCODONE 5MG TAB PO PRN ×3 (05:53→18:33)
[2020-11-20] MEDS: LEVOTHYROXINE 50MCG TABLET (0.05MG) PO SCH (05:54)
[2020-11-20] MEDS: SODIUM CHLORIDE 0.9% INJ 10 ML SYR IV SCH ×2 (05:55→17:41)
[2020-11-20 06:00] VITALS: BP 113/58
[2020-11-20] MEDS: ONDANSETRON 4 MG TAB PO PRN (06:25)
[2020-11-20 07:40] LABS: BLOOD UREA NITROGEN 18 MG/DL (7-18); C REACTIVE PROTEIN QUANTITATIV 3.87 MG/DL (0.00-0.30); CARBON DIOXIDE LEVEL 41 MEQ/L (21-32); CHLORIDE LEVEL 89 MEQ/L (98-107); GLOMERULAR FILTRATION RATE > 60.0 (>45); GLUCOSE, FASTING 151 MG/DL (70-100); POTASSIUM SERUM 3.4 MEQ/L (3.5-5.1); SODIUM LEVEL 134 MEQ/L (136-145)
[2020-11-20] MEDS: ASPIRIN 81MG ENTERIC TABLET PO SCH (08:08)
[2020-11-20] MEDS: SUCRALFATE SUSP 1GM/10ML UD PO SCH ×4 (08:08→21:06)
[2020-11-20] MEDS: LACTULOSE 20 GM/30 ML SYRUP UD PO SCH (08:08)
[2020-11-20] MEDS: SOLIFENACIN 5 MG TAB PO SCH (08:08)
[2020-11-20] MEDS: PANTOPRAZOLE 40MG TAB (PROTONIX) PO SCH (08:08)
[2020-11-20] MEDS: CYANOCOBALAMIN 250 MCG TABLET PO SCH (08:09)
[2020-11-20] MEDS: FOLIC ACID 1 MG TAB PO SCH (08:10)
[2020-11-20] MEDS: LIDOCAINE 5% (LIDODERM) PATCH TD SCH (08:10)
[2020-11-20] MEDS: BACLOFEN 5MG PER 1/2 TABLET PO SCH ×3 (08:10→21:05)
[2020-11-20] MEDS: HumaLOG INSULIN (NovoLOG) PER UNIT SC SCH ×4 (08:10→20:57)
[2020-11-20] MEDS: GABAPENTIN 300 MG CAP PO SCH (08:11)
[2020-11-20] MEDS: PREGABALIN 100 MG CAP (LYRICA) PO SCH ×2 (08:11→21:06)
[2020-11-20] MEDS: POTASSIUM CHLORIDE 10MEQ SR TABLET PO SCH ×2 (08:12→21:07)
[2020-11-20] MEDS: diazePAM 2 MG TAB PO SCH ×2 (08:12→21:06)
[2020-11-20] MEDS: MAGNESIUM OXIDE 400MG TAB (MAG-OX) PO SCH ×2 (08:12→21:06)
[2020-11-20] MEDS: FUROSEMIDE injection 250 MG in D5W 225 ML IV SCH (08:13)
[2020-11-20] MEDS: NYSTATIN 100,000 UNITS/GM TOPICAL PWD 15 GM TOP SCH ×2 (08:17→21:07)
[2020-11-20] MEDS: ANALGESIC BALM CRM 3OZ TOP SCH ×5 (08:17→23:52)
[2020-11-20 08:30] VITALS: O2SAT 95
--- NOTE | 2020-11-20 11:09 | IPNPDOC ---
Subjective General Date Seen: Nov 20, 2020 Subject Chief Complaint/History The patient is a 65-year-old female admitted with a reason for visit of Uti, Overactive Bladder. Patient seen and examined at the bedside. She states she is feeling good today. Complaint with wound dressing changes. Denies pain. Current Medications Current Medications Current Medications Medications (Trade) Dose Ordered Sig/Yonatan Route PRN Reason Start Time Stop Time Status Last Admin Dose Admin Acetaminophen (Tylenol Tab) 650 mg Q4HP PRN PO PAIN OR DISCOMFORT 09/07/20 21:10 10/06/20 17:47 DC 10/06/20 16:35 Acetaminophen (Tylenol Tab) 650 mg Q4HP PRN PO FEVER 11/06/20 18:15 11/06/20 18:50 Acetaminophen (Tylenol Tab) 1,000 mg TID PO 10/06/20 21:00 10/07/20 16:32 DC 10/07/20 16:21 Acetaminophen (Tylenol Tab) 1,000 mg TID PO 10/07/20 16:00 Cancel Acetaminophen (Tylenol Tab) 1,000 mg TID PO 10/07/20 21:00 11/06/20 18:13 DC 11/05/20 21:50 Albuterol Sulfate (Proventil Neb) 2.5 mg Q6HP PRN NEB SOB/WHEEZING 09/17/20 10:20 11/08/20 10:06 DC Albuterol Sulfate (Proventil Neb) 2.5 mg RQ8H NEB 11/14/20 00:00 11/20/20 07:17 Albuterol/ Ipratropium (Duoneb (Ipr 0.5mg/Alb 2.5mg)) 3 ml Q4HP PRN NEB SOB/WHEEZING 11/08/20 10:00 Artificial Tears (Akwa Tears) 2 drop TID PRN OU DRY EYES 09/07/20 13:55 11/15/20 16:29 DC 10/09/20 01:29 Aspirin (Ecotrin) 81 mg DAILY PO 09/07/20 09:00 10/17/20 18:15 DC 10/17/20 08:50 Aspirin (Ecotrin) 81 mg DAILY PO 11/14/20 09:00 11/20/20 08:08 Atorvastatin Calcium (Lipitor) 40 mg QHS PO 09/07/20 21:00 11/01/20 12:33 DC 10/31/20 21:46 Atorvastatin Calcium (Lipitor) 40 mg QHS PO 11/01/20 21:00 11/19/20 20:39 Baclofen (Lioresal) 5 mg BID PO 10/08/20 09:00 10/12/20 11:28 DC 10/12/20 08:06 Baclofen (Lioresal) 5 mg BID PO 10/03/20 21:00 10/04/20 18:00 DC 10/04/20 08:31 Baclofen (Lioresal) 5 mg DAILY PO 10/05/20 09:00 10/05/20 11:40 DC 10/05/20 08:50 Baclofen (Lioresal) 5 mg TID PO 10/12/20 16:00 11/20/20 08:10 Baclofen (Lioresal) 5 mg TID PO 10/07/20 09:00 10/07/20 06:49 DC Baclofen (Lioresal) 10 mg QHS PO 10/04/20 21:00 10/05/20 11:40 DC 10/04/20 20:25 Baclofen (Lioresal) 10 mg TID PO 10/05/20 16:00 10/06/20 22:32 DC 10/06/20 22:03 Buprenorphine/ Naloxone (Suboxone 2/ 0.5mg) 1 tab BID SL 09/28/20 21:00 09/29/20 10:30 DC 09/29/20 08:27 Buprenorphine/ Naloxone (Suboxone 2/ 0.5mg) 1 tab QPM SL 09/29/20 21:00 10/02/20 22:06 DC 10/02/20 20:41 Buprenorphine/ Naloxone (Suboxone 2/ 0.5mg) 1 tab Taper DAILY SL 10/03/20 09:00 10/09/20 08:59 DC 10/08/20 09:40 Buprenorphine/ Naloxone (Suboxone 2/ 0.5mg) 2 tab BID SL 09/07/20 21:00 09/28/20 11:12 DC 09/28/20 05:42 Buprenorphine/ Naloxone (Suboxone 2/ 0.5mg) 2 tab BID SL 11/01/20 12:25 11/01/20 18:52 DC 11/01/20 14:01 Buprenorphine/ Naloxone (Suboxone 2/ 0.5mg) 2 tab DAILY SL 09/30/20 09:00 10/02/20 22:06 DC 10/02/20 09:01 Calcium Carbonate (Tums) 1,000 mg Q4HP PRN PO HEARTBURN 10/30/20 11:25 10/30/20 11:39 Cefepime HCl 1 gm/ Dextrose 50 ml @ 100 mls/hr Q12H IV 09/19/20 21:00 09/20/20 18:32 DC 09/20/20 09:18 Cefepime HCl 1 gm/ Dextrose 50 ml @ 100 mls/hr Q8H IV 09/20/20 18:25 09/28/20 11:43 DC 09/28/20 03:03 Cefepime HCl 1 gm/ Dextrose 50 ml @ 100 mls/hr Q8H IV 10/01/20 07:00 10/01/20 21:05 DC 10/01/20 16:10 Ceftriaxone Sodium 1 gm/ Dextrose 50 ml @ 100 mls/hr Q24H IV 09/07/20 13:00 09/07/20 14:56 DC 09/07/20 13:43 Cod Liver Oil/ Zinc Oxide (Desitin) 1 dose BID TOP 10/02/20 09:00 11/15/20 10:07 DC 11/14/20 10:13 Collagenase (SantyL) Apply to wound bed ... DAILY TOP 10/09/20 09:00 10/23/20 15:32 DC 10/21/20 09:26 Cyanocobalamin (Vitamin B12) 250 mcg DAILY PO 09/07/20 09:00 11/01/20 12:33 DC 11/01/20 09:45 Cyanocobalamin (Vitamin B12) 250 mcg DAILY PO 11/02/20 09:00 11/20/20 08:09 Dextrose (Dextrose 50%) 25 ml ASDIRECTED PRN IV SEE LABEL COMMENTS 09/07/20 14:10 11/01/20 12:33 DC 10/07/20 06:56 Dextrose (Dextrose 50%) 25 ml ASDIRECTED PRN IV SEE LABEL COMMENTS 11/01/20 20:30 Diatrizoate Meglum/ Diatrizoate Sod (Gastrografin) 10 ml Q30M PO 10/23/20 10:45 10/23/20 11:16 DC 10/23/20 12:01 Diazepam (Valium) 1 mg BID PO 10/13/20 09:00 11/20/20 08:12 Diphenhydramine HCl (Benadryl) 25 mg Q6HP PRN IV drug rash or itchy 10/04/20 08:00 10/09/20 08:36 Docusate Sodium (Colace) 100 mg BID PO 09/07/20 21:00 09/30/20 16:42 DC 09/30/20 09:39 Docusate Sodium (Colace) 200 mg BID PO 09/30/20 21:00 10/02/20 21:50 DC 10/02/20 20:41 Dronabinol (Marinol) 2.5 mg BID@12,1730 PO 10/20/20 17:30 10/31/20 12:35 DC 10/30/20 17:25 Duloxetine HCl (Cymbalta) 45 mg BID PO 10/12/20 11:35 10/12/20 11:39 DC Duloxetine HCl (Cymbalta) 60 mg QHS PO 09/07/20 21:00 10/12/20 11:37 DC 10/11/20 21:57 Enoxaparin Sodium (Lovenox) 40 mg DAILY SC 09/08/20 09:00 10/08/20 16:07 DC 10/08/20 09:38 Enoxaparin Sodium (Lovenox) 120 mg BID SC 10/08/20 21:00 10/17/20 13:16 DC 10/17/20 08:56 Enoxaparin Sodium (Lovenox) 130 mg Q12H SC 11/06/20 22:00 11/09/20 07:32 DC 11/08/20 21:50 Famotidine (Pepcid) 20 mg QHS PRN PO HEARTBURN 09/07/20 13:55 10/11/20 09:26 DC Fentanyl Citrate (Sublimaze) 25 mcg Q5MP PRN IV PAIN LEVEL 5-10 09/15/20 19:00 09/15/20 20:30 DC Fentanyl Citrate (Sublimaze) 25 mcg Q5MP PRN IV PAIN LEVEL 5-10 09/20/20 17:10 09/20/20 18:10 DC Fentanyl Citrate (Sublimaze) 25 mcg Q5MP PRN IV PAIN LEVEL 5-10 09/20/20 17:45 09/20/20 18:45 DC Ferrous Gluconate (Fergon) 324 mg QHS PO 09/07/20 21:00 11/01/20 12:33 DC 10/31/20 21:45 Fluconazole (Diflucan) 150 mg DAILY PO 10/03/20 09:00 10/13/20 08:59 DC 10/12/20 08:11 Folic Acid (Folic Acid) 1 mg DAILY PO 09/07/20 09:00 11/01/20 12:33 DC 11/01/20 09:45 Folic Acid (Folic Acid) 1 mg DAILY PO 11/02/20 09:00 11/20/20 08:10 Furosemide (LASIX injection) 40 mg BID@ IV 10/17/20 17:00 10/17/20 13:16 DC Furosemide (LASIX injection) 40 mg Q12H IV 11/08/20 05:00 11/14/20 12:33 DC 11/14/20 04:42 Furosemide (LASIX injection) 40 mg Q8H IV 10/19/20 13:00 11/01/20 12:33 DC 11/01/20 04:45 Furosemide (LASIX injection) 40 mg Q8H IV 11/01/20 21:00 11/07/20 19:10 DC 11/06/20 14:18 Furosemide (LASIX injection) 60 mg BID@, IV 11/16/20 17:00 11/16/20 11:58 DC Furosemide (Lasix) 20 mg DAILY PO 09/23/20 09:00 09/24/20 08:53 DC 09/23/20 11:18 Furosemide (Lasix) 40 mg DAILY PO 09/08/20 09:00 09/07/20 14:10 DC Furosemide (Lasix) 40 mg DAILY PO 09/10/20 09:00 09/10/20 14:40 DC 09/10/20 08:50 Furosemide (Lasix) 40 mg DAILY PO 09/12/20 09:00 09/21/20 07:14 DC 09/19/20 09:22 Furosemide (Lasix) 40 mg DAILY PO 09/24/20 09:00 10/13/20 14:33 DC 10/13/20 10:14 Furosemide (Lasix) 40 mg DAILY PO 10/14/20 09:00 10/13/20 17:19 DC Furosemide 250 mg/ Dextrose 250 ml @ 10 mls/hr Q24H IV 11/19/20 10:00 11/19/20 07:19 DC Furosemide 250 mg/ Dextrose 250 ml @ 10 mls/hr Q24H IV 11/19/20 10:00 11/20/20 08:13 Furosemide 250 mg/ Dextrose 250 ml @ 12.63 mls/ hr [id number] IV 11/16/20 14:00 11/18/20 08:04 DC 11/16/20 14:35 Gabapentin (Neurontin) 600 mg TID PO 11/02/20 16:00 11/03/20 14:38 DC 11/03/20 09:09 Gabapentin (Neurontin) 600 mg Taper DAILY PO 11/03/20 16:00 11/21/20 15:59 11/20/20 08:11 Gabapentin (Neurontin) 900 mg TID PO 09/07/20 16:00 11/02/20 13:18 DC 11/02/20 09:05 Glucagon (Glucagon) 1 mg ASDIRECTED PRN SC SEE LABEL COMMENTS 09/07/20 14:10 11/01/20 12:33 DC Glucagon (Glucagon) 1 mg ASDIRECTED PRN SC SEE LABEL COMMENTS 11/01/20 20:30 Glucose (Glucose) 16 GM ASDIRECTED PRN PO SEE LABEL COMMENTS 09/07/20 14:10 11/01/20 12:33 DC Glucose (Glucose) 16 GM ASDIRECTED PRN PO SEE LABEL COMMENTS 11/01/20 20:30 Heparin Sodium (Heparin (Flush)) 200 units ASDIRECTED PRN IV SEE LABEL COMMENTS 09/10/20 13:20 09/21/20 15:43 DC 09/19/20 20:42 Heparin Sodium (Heparin (Flush)) 200 units ASDIRECTED PRN IV SEE LABEL COMMENTS 09/21/20 16:00 09/28/20 11:57 DC 09/27/20 09:37 Heparin Sodium (Heparin (Flush)) 200 units ASDIRECTED PRN IV SEE LABEL COMMENTS 10/02/20 19:00 11/10/20 09:47 Heparin Sodium (Heparin (Flush)) 200 units PICC IV 09/10/20 18:00 09/21/20 15:43 DC 09/21/20 05:51 Heparin Sodium (Heparin (Flush)) 200 units PICC IV 09/21/20 18:00 09/28/20 11:57 DC 09/28/20 05:40 Heparin Sodium (Heparin (Flush)) 200 units PICC IV 10/03/20 06:00 11/20/20 05:55 Home Med (Med Rec Complete!) ASDIRECTED XX 09/07/20 13:00 09/07/20 13:00 DC Hydrocortisone (Hydrocortisone 1% Cream) APPLY TO RASH ON CHEST ... BIDP PRN TOP itchy rash 10/04/20 09:40 10/07/20 11:20 Hydromorphone HCl (Dilaudid) 0.2 mg Q5MP PRN IV PAIN LEVEL 4-7 09/20/20 17:10 09/20/20 18:10 DC Hydromorphone HCl (Dilaudid) 0.2 mg Q5MP PRN IV PAIN LEVEL 4-7 09/20/20 17:45 09/20/20 18:45 DC Hydroxyzine HCl (Atarax) 25 mg TID PRN PO ANXIETY 09/07/20 13:55 11/11/20 22:01 Ibuprofen (Advil) 600 mg Q8HP PRN PO MILD PAIN (PS 1-4) 10/12/20 05:05 10/17/20 18:18 DC 10/17/20 16:50 Insulin Human Lispro (HumaLOG INSULIN) SEE PROTOCOL TABLE AC SC 09/07/20 17:30 11/01/20 12:33 DC 11/01/20 09:43 Insulin Human Lispro (HumaLOG INSULIN) SEE PROTOCOL TABLE AC SC 11/02/20 07:30 11/20/20 08:10 Insulin Human Lispro (HumaLOG INSULIN) SEE PROTOCOL TABLE QHS SC 09/07/20 21:00 11/01/20 12:33 DC 10/10/20 21:00 Insulin Human Lispro (HumaLOG INSULIN) SEE PROTOCOL TABLE QHS SC 11/01/20 21:00 Ketorolac Tromethamine (ToRADol) 15 mg Q6HP PRN IV pain 10/06/20 17:45 10/11/20 17:44 DC 10/11/20 06:35 Lactated Ringer's 1,000 ml @ 100 mls/hr Q10H IV 09/15/20 19:00 09/15/20 20:30 DC Lactated Ringer's 1,000 ml @ 100 mls/hr Q10H IV 09/20/20 17:10 09/20/20 18:10 DC Lactated Ringer's 1,000 ml @ 100 mls/hr Q10H IV 09/20/20 17:45 09/20/20 18:45 DC Lactulose (Cephulac) 30 ml BID PO 10/17/20 21:00 10/18/20 12:57 DC 10/18/20 09:12 Lactulose (Cephulac) 30 ml DAILY PO 10/28/20 09:00 11/20/20 08:08 Lactulose (Cephulac) 30 ml Q6H PO 10/18/20 12:00 10/27/20 10:08 DC 10/27/20 05:19 Levofloxacin (Levaquin) 750 mg DAILY@1800 PO 11/10/20 18:00 11/19/20 23:00 DC 11/19/20 17:42 Levothyroxine Sodium (Synthroid) 50 mcg DAILY@06 PO 11/02/20 06:00 11/20/20 05:54 Levothyroxine Sodium (Synthroid) 50 mcg DAILY@0600 PO 09/07/20 06:00 11/01/20 12:33 DC 11/01/20 05:49 Lidocaine (Lidoderm Patch) 1 patch DAILY TD 10/05/20 09:00 11/20/20 08:10 Lorazepam (Ativan) 1 mg Q2HP PRN PO ANXIETY 11/01/20 12:30 11/01/20 18:47 DC Magnesium Hydroxide (Milk Of Magnesia) 30 ml BID PO 10/06/20 21:00 10/27/20 10:08 DC 10/26/20 21:44 Magnesium Hydroxide (Milk Of Magnesia) 30 ml DAILYPRN PRN PO CONSTIPATION 10/05/20 11:35 10/06/20 13:41 DC 10/06/20 08:24 Magnesium Oxide (Mag-Ox) 400 mg BID PO 10/22/20 09:00 11/01/20 12:33 DC 11/01/20 09:44 Magnesium Oxide (Mag-Ox) 400 mg BID PO 11/01/20 21:00 11/20/20 08:12 Magnesium Sulfate/ Dextrose 1 gm/IV Miscellaneous Supplies 100 ml @ 100 mls/hr Q1H IV 10/20/20 09:00 10/20/20 12:59 DC 10/20/20 12:00 Magnesium Sulfate/ Dextrose 1 gm/IV Miscellaneous Supplies 100 ml @ 100 mls/hr Q1H IV 10/22/20 08:00 10/22/20 09:59 DC 10/22/20 11:59 Meloxicam (Mobic) 7.5 mg DAILY PO 09/07/20 09:00 09/09/20 15:16 DC 09/09/20 10:15 Menthol/Methyl Salicylate (Bengay Cream) 1 dose QID TOP 11/15/20 21:00 11/20/20 08:17 Menthol/Methyl Salicylate (Bengay Cream) 1 dose TID TOP 10/30/20 09:00 11/15/20 18:56 DC 11/15/20 17:52 Meropenem 1 gm/IV Miscellaneous Supplies 50 ml @ 100 mls/hr Q8H IV 11/06/20 17:00 11/10/20 13:53 DC 11/10/20 08:51 Methocarbamol (Robaxin) 500 mg Q6HP PRN PO spasms 09/23/20 08:00 09/24/20 07:29 DC Methocarbamol (Robaxin) 500 mg QID PRN PO MUSCLE SPASMS 09/07/20 13:55 09/22/20 15:18 DC 09/17/20 18:33 Metoclopramide HCl (REGLAN INJection) 10 mg Q6HP PRN IV REFRACTORY NAUSEA 10/18/20 16:25 10/31/20 07:58 DC 10/30/20 00:38 Metoclopramide HCl (Reglan) 5 mg BID PO 09/07/20 09:00 10/18/20 16:24 DC 10/18/20 09:12 Metoclopramide HCl (Reglan) 10 mg Q6HP PRN PO NAUSEA OR VOMITING 10/31/20 08:00 11/18/20 12:22 Metolazone (Zaroxolyn) 5 mg DAILY PO 11/17/20 09:00 11/18/20 08:04 DC Midazolam HCl (Versed) 1 mg ASDIRECTED PRN IV Q5 MIN ..MAY REPEAT X1 09/15/20 19:30 09/15/20 20:15 DC 09/15/20 19:33 Miscellaneous (Unresolved Clarification Entry) SEE LABEL COMMENTS DAILY XX 10/07/20 09:00 10/07/20 16:31 DC 10/07/20 09:00 Morphine Sulfate (Roxanol) 5 mg Q2HP PRN SL SEVERE PAIN (PS 8-10) 11/01/20 12:30 11/01/20 18:47 DC Non-Formulary Medication ( See Comment Field Below ) REMOVE LIDODERM PATCH DAILY@ XX 10/05/20 21:00 11/19/20 20:40 Nystatin (Mycostatin Powder, Nystop) Apply to groin, abdomi... BID TOP 09/23/20 09:00 11/20/20 08:17 Ondansetron HCl (ZOFRAN INJection) 4 mg Q4HP PRN IV NAUSEA OR VOMITING 09/15/20 19:00 09/15/20 20:30 DC Ondansetron HCl (ZOFRAN INJection) 4 mg Q4HP PRN IV NAUSEA OR VOMITING 09/20/20 17:10 09/20/20 18:10 DC Ondansetron HCl (ZOFRAN INJection) 4 mg Q4HP PRN IV NAUSEA OR VOMITING 09/20/20 17:45 09/20/20 18:45 DC Ondansetron HCl (ZOFRAN INJection) 4 mg Q4HP PRN IV NAUSEA OR VOMITING 10/11/20 10:40 10/31/20 07:58 DC 10/30/20 13:13 Ondansetron HCl (ZOFRAN INJection) 4 mg Q6HP PRN IV NAUSEA OR VOMITING 09/07/20 14:10 09/28/20 11:57 DC 09/25/20 17:09 Ondansetron HCl (Zofran Odt) 4 mg DAILY PO 09/08/20 09:00 09/07/20 14:10 DC Ondansetron HCl (Zofran Odt) 4 mg Q6HP PRN PO NAUSEA OR VOMITING 09/28/20 11:55 10/11/20 10:37 DC 10/05/20 11:15 Ondansetron HCl (Zofran) 4 mg Q4HP PRN PO NAUSEA OR VOMITING 10/31/20 08:00 11/20/20 06:25 Oxybutynin Chloride (Ditropan Xl) 5 mg DAILY PO 10/03/20 15:10 10/04/20 11:02 DC 10/04/20 08:32 Oxybutynin Chloride (Ditropan Xl) 10 mg DAILY PO 09/09/20 17:55 09/14/20 08:48 DC 09/14/20 08:45 Oxycodone HCl (Roxicodone, Oxyir) 5 mg ASDIRECTED PRN PO PAIN LEVEL 1-4 09/15/20 19:00 09/15/20 20:30 DC Oxycodone HCl (Roxicodone, Oxyir) 5 mg ASDIRECTED PRN PO PAIN LEVEL 1-4 09/20/20 17:10 09/20/20 18:10 DC 09/20/20 17:18 Oxycodone HCl (Roxicodone, Oxyir) 5 mg ASDIRECTED PRN PO PAIN LEVEL 1-4 09/20/20 17:45 09/20/20 18:45 DC Oxycodone HCl (Roxicodone, Oxyir) 5 mg Q6HP PRN PO PAIN 10/12/20 15:40 10/19/20 14:15 DC 10/19/20 09:54 Oxycodone HCl (Roxicodone, Oxyir) 10 mg Q6HP PRN PO PAIN 10/19/20 14:15 11/01/20 12:27 DC 11/01/20 09:41 Oxycodone HCl (Roxicodone, Oxyir) 10 mg Q6HP PRN PO SEVERE PAIN (PS 8-10) 11/01/20 18:50 11/03/20 10:50 DC 11/03/20 09:10 Oxycodone HCl (Roxicodone, Oxyir) 15 mg Q6HP PRN PO SEVERE PAIN (PS 8-10) 11/03/20 10:50 11/20/20 05:53 Pantoprazole Sodium (Protonix) 40 mg DAILY PO 10/11/20 09:25 11/01/20 12:33 DC 11/01/20 09:45 Pantoprazole Sodium (Protonix) 40 mg DAILY PO 11/02/20 09:00 11/20/20 08:08 Piperacillin Sod/ Tazobactam Sod 3.375 gm/Dextrose 50 ml @ 50 mls/hr Q6H IV 09/10/20 14:00 09/12/20 11:09 DC 09/12/20 08:25 Piperacillin Sod/ Tazobactam Sod 3.375 gm/Dextrose 50 ml @ 50 mls/hr Q6H IV 09/07/20 16:00 09/10/20 13:24 DC 09/09/20 16:21 Piperacillin Sod/ Tazobactam Sod 3.375 gm/Dextrose 50 ml @ 50 mls/hr Q6H IV 10/01/20 22:00 11/06/20 16:08 DC 11/06/20 09:46 Polyethylene Glycol (Miralax) 1 pkt BID PO 10/06/20 21:00 10/12/20 15:52 DC 10/09/20 21:24 Polyethylene Glycol (Miralax) 1 pkt DAILY PO 10/02/20 21:50 10/06/20 13:41 DC 10/06/20 08:07 Polyethylene Glycol (Miralax) 1 pkt DAILY PRN PO CONSTIPATION 09/07/20 13:55 10/02/20 21:50 DC 10/02/20 09:24 Potassium Chloride (Micro-K Extencaps) 20 meq BID PO 10/21/20 09:00 11/01/20 12:33 DC 11/01/20 09:44 Potassium Chloride (Micro-K Extencaps) 20 meq BID PO 11/01/20 21:00 11/17/20 07:50 DC 11/16/20 21:52 Potassium Chloride (Micro-K Extencaps) 30 meq Q4H PO 09/09/20 09:00 09/09/20 13:01 DC 09/09/20 13:45 Potassium Chloride (Micro-K Extencaps) 40 meq BID PO 11/17/20 09:00 11/20/20 08:12 Pregabalin (Lyrica) 100 mg BID PO 11/02/20 21:00 11/20/20 08:11 Scopolamine (Scopolamine) 1 mg Q3DP PRN TOP EXCESSIVE SECRETIONS 11/01/20 12:30 11/01/20 18:47 DC Senna (Senokot) 1 tab QHS PO 09/07/20 21:00 10/02/20 21:50 DC 10/02/20 20:41 Senna/Docusate Sodium (Senokot S) 2 tab QHS PO 10/03/20 21:00 11/19/20 20:39 Sodium Hypochlorite (Dakin'S Solution) remove wound vac, pl... DAILYPRN PRN TOP WOUND CARE 10/01/20 17:30 10/02/20 19:56 DC 10/01/20 20:16 Sodium Chloride 1,000 ml @ 15 mls/hr Q24H IV 10/22/20 07:35 10/22/20 19:36 DC 10/22/20 10:29 Sodium Chloride 1,000 ml @ 85 mls/hr [id number] IV 09/10/20 14:40 09/11/20 09:38 DC 09/11/20 03:50 Sodium Chloride 1,000 ml @ 100 mls/hr Q10H IV 09/07/20 13:55 09/08/20 11:08 DC 09/08/20 05:36 Sodium Chloride ([place] Nasal Roselle) 2 spray Q2HP PRN NA NASAL DRYNESS 09/18/20 11:20 11/15/20 16:29 DC Sodium Chloride (Saline Lock Flush) 10 ml ASDIRECTED PRN IV SEE LABEL COMMENTS 09/10/20 13:20 09/21/20 15:43 DC 09/19/20 20:43 Sodium Chloride (Saline Lock Flush) 10 ml ASDIRECTED PRN IV SEE LABEL COMMENTS 09/21/20 16:00 09/28/20 11:57 DC 09/27/20 09:37 Sodium Chloride (Saline Lock Flush) 10 ml ASDIRECTED PRN IV SEE LABEL COMMENTS 10/02/20 19:00 11/10/20 09:47 Sodium Chloride (Saline Lock Flush) 10 ml PICC IV 09/10/20 18:00 09/21/20 15:43 DC 09/21/20 05:52 Sodium Chloride (Saline Lock Flush) 10 ml PICC IV 09/21/20 18:00 09/28/20 11:57 DC 09/28/20 05:41 Sodium Chloride (Saline Lock Flush) 10 ml PICC IV 10/03/20 06:00 11/20/20 05:55 Solifenacin (Vesicare) 5 mg DAILY PO 10/05/20 09:00 10/05/20 11:40 DC 10/05/20 08:50 Solifenacin (Vesicare) 10 mg DAILY PO 09/15/20 09:00 09/20/20 18:00 DC 09/20/20 09:18 Solifenacin (Vesicare) 10 mg DAILY PO 10/06/20 09:00 11/01/20 12:33 DC 11/01/20 09:45 Solifenacin (Vesicare) 10 mg DAILY PO 11/02/20 09:00 11/20/20 08:08 Sucralfate (Carafate Suspension) 1 gm ACHS PO 10/27/20 12:00 11/20/20 08:08 Tizanidine HCl (Zanaflex) 4 mg BIDP PRN PO spasms 09/24/20 07:30 10/03/20 15:49 DC 10/03/20 08:33 Tizanidine HCl (Zanaflex) 4 mg Q8HP PRN PO SPASMS 09/22/20 09:00 09/22/20 15:18 DC 09/22/20 10:41 Tizanidine HCl (Zanaflex) 4 mg QHS PO 09/23/20 21:00 09/24/20 07:29 DC 09/23/20 21:05 Tizanidine HCl (Zanaflex) 4 mg QHS PRN PO MUSCLE SPASMS 09/07/20 13:55 09/22/20 08:15 DC 09/21/20 20:34 Torsemide (Demadex) 20 mg BID@09,17 PO 11/14/20 17:00 11/16/20 11:51 DC 11/16/20 09:59 Vancomycin HCl 750 mg/IV Miscellaneous Supplies 1 each/ Sodium Chloride 275 ml @ 275 mls/hr Q12H IV 09/11/20 04:00 09/11/20 15:39 DC 09/11/20 03:48 Vancomycin HCl 1000 mg/IV Miscellaneous Supplies 1 each/ Sodium Chloride 270 ml @ 270 mls/hr Q12H IV 09/08/20 10:25 09/08/20 11:05 DC Vancomycin HCl 1000 mg/IV Miscellaneous Supplies 1 each/ Sodium Chloride 270 ml @ 270 mls/hr Q12H IV 09/09/20 00:00 09/09/20 13:43 DC 09/08/20 23:33 Vancomycin HCl 1000 mg/IV Miscellaneous Supplies 1 each/ Sodium Chloride 270 ml @ 270 mls/hr Q12H IV 09/09/20 14:00 09/10/20 15:43 DC 09/09/20 13:45 Vancomycin HCl 1000 mg/IV Miscellaneous Supplies 1 each/ Sodium Chloride 270 ml @ 270 mls/hr Q12H IV 09/11/20 16:00 09/12/20 10:32 DC 09/12/20 03:57 Vancomycin HCl 1000 mg/IV Miscellaneous Supplies 1 each/ Sodium Chloride 270 ml @ 270 mls/hr Q12H IV 11/07/20 06:00 11/12/20 13:49 DC 11/12/20 05:57 Vancomycin HCl 1000 mg/IV Miscellaneous Supplies 1 each/ Sodium Chloride 270 ml @ 270 mls/hr Q1H IV 11/06/20 18:00 11/06/20 19:59 DC 11/06/20 22:03 Allergies Coded Allergies: oxybutynin (Verified Allergy, Intermediate, rash, 10/06/20) Objective Physical Examination Examination GENERAL APPEARANCE:Patient seen, laying in bed, awake, alert, and oriented. Comfortable, in no acute distress. SKIN: Warm and moist. Sacral wound stage IV size 8.5 x 9.5 x 3.5 cm undermining 2 cm at 1:00. Clean granulating tissue, no odor, center off the wound with DTI. Right ischium wound stage III size 5 x 2 x 0.3 cm. Clean granulating tissue, minimal clear drainage. Left ischium wound stage IV size 7 x 6 x 5 cm, clean granulating tissue, moderate clear drainage, no odor. LUNGS: Clear to auscultation bilaterally. No wheezing appreciated. HEART: No chest wall abnormalities. Regular rate and rhythm with no murmurs appreciated. ABDOMEN: Abdomen is soft, non-tender, non-distended. EXTREMITIES: No edema identified. No calf tenderness. Vital Signs Vital Signs Date Time Temp Pulse Resp B/P (MAP) Pulse Ox O2 Delivery O2 Flow Rate FiO2 11/20/20 08:00 5.0 28 11/20/20 06:23 16 11/20/20 06:00 96.8 96 113/58 (76) 97 Trach Collar I&Os I&O- Last 24 Hours up to 6 AM 11/20/20 06:00 Intake Total 1780 ml Output Total 4475 ml Balance -2695 ml Laboratory Data Labs 24H Laboratory Tests 2 11/19/20 11:35: Bedside Glucose (Misc Panel) 178H 11/19/20 17:05: Bedside Glucose (Misc Panel) 170H 11/19/20 21:08: Bedside Glucose (Misc Panel) 161H 11/20/20 06:01: Anion Gap 4L, Glomerular Filtration Rate > 60.0, Calcium Level 9.0, C-Reactive Protein, Quantitative 3.87H CBC/BMP Laboratory Tests 11/20/20 06:01 Impression Sacral wound stage IV Left ischial wound stage IV Right ischial wound stage III All wounds are improving. DTI in the middle of the sacral wound is stable, no signs of infection. Continue with Hydrofera blue, pack with Kerlix daily and prn dressing changes. Continue with improving nutrition Off loading. Air flow mattress No surgical intervention at this time. Plan / VTE VTE Prophylaxis Ordered?: Yes MCKENZIE MULLEN DO Nov 20, 2020 11:09
[2020-11-20 14:00] VITALS: BP 115/74
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
[2020-11-20] MEDS: ATORVASTATIN 20 MG TAB PO SCH (21:06)
[2020-11-20] MEDS: SENOKOT S TAB PO SCH (21:06)
[2020-11-20] MEDS: **NOTE PATIENT COMMENT** MISC XX SCH (21:07)
[2020-11-20 22:00] VITALS: BP 104/63; O2SAT 94
[2020-11-20 23:32] VITALS: O2SAT 96
[2020-11-21] MEDS: ANALGESIC BALM CRM 3OZ TOP SCH ×3 (05:57→18:56)
[2020-11-21] MEDS: LEVOTHYROXINE 50MCG TABLET (0.05MG) PO SCH (05:57)
[2020-11-21] MEDS: oxyCODONE 5MG TAB PO PRN ×2 (05:59→20:15)
[2020-11-21 06:00] VITALS: BP 103/65
[2020-11-21] MEDS: SODIUM CHLORIDE 0.9% INJ 10 ML SYR IV SCH ×2 (06:27→18:53)
[2020-11-21] MEDS: ALBUTEROL SULFATE 2.5 MG/0.5 ML INH NEB SOLN NEB SCH ×3 (07:06→23:28)
[2020-11-21 09:02] LABS: BASO # 0.1 10^3/uL (0.0-0.2); BASO % 0.6 % (0.0-1.0); EOS # 0.8 10^3/uL (0.0-0.5); EOS % 4.5 % (0.0-3.0); HEMATOCRIT 33.8 % (36.0-47.0); HEMOGLOBIN 10.4 g/dl (12.0-15.5); LYMPH # 2.2 10^3/uL (1.5-5.0); LYMPH % 12.2 % (24.0-44.0); MEAN CORPUSCULAR HEMOGLOBIN 27.1 pg (27.0-33.0); MEAN CORPUSCULAR HGB CONC 30.8 g/dl (32.0-36.5); MONO % 11.1 % (2.0-8.0); NEUTROPHILS % 70.9 % (36.0-66.0); PLATELET COUNT, AUTOMATED 539 10^3/uL (150-450); RED BLOOD COUNT 3.84 10^6/uL (4.00-5.40)
[2020-11-21 09:23] LABS: BLOOD UREA NITROGEN 25 MG/DL (7-18); CALCIUM LEVEL 9.7 MG/DL (8.8-10.2); CARBON DIOXIDE LEVEL 44 MEQ/L (21-32); CHLORIDE LEVEL 85 MEQ/L (98-107); CREATININE FOR GFR 0.68 MG/DL (0.55-1.30); GLOMERULAR FILTRATION RATE > 60.0 (>45); GLUCOSE, FASTING 193 MG/DL (70-100); MAGNESIUM LEVEL 2.1 MG/DL (1.8-2.4); POTASSIUM SERUM 3.2 MEQ/L (3.5-5.1); SODIUM LEVEL 133 MEQ/L (136-145)
[2020-11-21 09:34] LABS: WHITE BLOOD COUNT 18.3 10^3/uL (4.0-10.0)
[2020-11-21] MEDS: SODIUM CHLORIDE 0.9% INJ 10 ML SYR IV PRN (10:41)
[2020-11-21] MEDS: LIDOCAINE 5% (LIDODERM) PATCH TD SCH (10:48)
[2020-11-21] MEDS: SUCRALFATE SUSP 1GM/10ML UD PO SCH ×4 (10:48→20:10)
[2020-11-21] MEDS: HumaLOG INSULIN (NovoLOG) PER UNIT SC SCH ×4 (10:48→21:00)
[2020-11-21] MEDS: LACTULOSE 20 GM/30 ML SYRUP UD PO SCH (10:48)
[2020-11-21] MEDS: ASPIRIN 81MG ENTERIC TABLET PO SCH (10:51)
[2020-11-21] MEDS: CYANOCOBALAMIN 250 MCG TABLET PO SCH (10:51)
[2020-11-21] MEDS: SOLIFENACIN 5 MG TAB PO SCH (10:51)
[2020-11-21] MEDS: PREGABALIN 100 MG CAP (LYRICA) PO SCH ×2 (10:51→20:10)
[2020-11-21] MEDS: GABAPENTIN 300 MG CAP PO SCH (10:52)
[2020-11-21] MEDS: PANTOPRAZOLE 40MG TAB (PROTONIX) PO SCH (10:52)
[2020-11-21] MEDS: POTASSIUM CHLORIDE 10MEQ SR TABLET PO SCH ×2 (10:52→20:10)
[2020-11-21] MEDS: MAGNESIUM OXIDE 400MG TAB (MAG-OX) PO SCH ×2 (10:52→20:10)
[2020-11-21] MEDS: FOLIC ACID 1 MG TAB PO SCH (10:53)
[2020-11-21] MEDS: diazePAM 2 MG TAB PO SCH ×2 (10:53→20:09)
[2020-11-21] MEDS: BACLOFEN 5MG PER 1/2 TABLET PO SCH ×3 (10:53→20:10)
[2020-11-21] MEDS: NYSTATIN 100,000 UNITS/GM TOPICAL PWD 15 GM TOP SCH ×2 (10:54→20:11)
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
[2020-11-21] MEDS ORDERED: POTASSIUM CHLORIDE 10MEQ SR TABLET PO ONE (12:00)
[2020-11-21 14:00] VITALS: BP 114/72
[2020-11-21] MEDS: TORSEMIDE 20 MG TAB PO SCH (18:52)
[2020-11-21] MEDS: SENOKOT S TAB PO SCH (20:09)
[2020-11-21] MEDS: ATORVASTATIN 20 MG TAB PO SCH (20:10)
[2020-11-21] MEDS: **NOTE PATIENT COMMENT** MISC XX SCH (20:11)
[2020-11-21] MEDS: METOCLOPRAMIDE 10 MG TAB PO PRN (20:15)
[2020-11-21 22:00] VITALS: BP 101/58
[2020-11-22] MEDS: ANALGESIC BALM CRM 3OZ TOP SCH ×4 (00:44→17:47)
[2020-11-22] MEDS: SODIUM CHLORIDE 0.9% INJ 10 ML SYR IV SCH ×2 (05:52→17:47)
[2020-11-22] MEDS: LEVOTHYROXINE 50MCG TABLET (0.05MG) PO SCH (05:52)
[2020-11-22] MEDS: oxyCODONE 5MG TAB PO PRN ×2 (05:53→20:26)
[2020-11-22 06:00] VITALS: BP 117/68
[2020-11-22] MEDS: METOCLOPRAMIDE 10 MG TAB PO PRN ×2 (06:14→13:14)
[2020-11-22] MEDS: ALBUTEROL SULFATE 2.5 MG/0.5 ML INH NEB SOLN NEB SCH ×3 (07:30→23:41)
[2020-11-22] MEDS: HumaLOG INSULIN (NovoLOG) PER UNIT SC SCH ×4 (07:30→21:00)
[2020-11-22] MEDS: FOLIC ACID 1 MG TAB PO SCH (08:05)
[2020-11-22] MEDS: CYANOCOBALAMIN 250 MCG TABLET PO SCH (08:05)
[2020-11-22] MEDS: diazePAM 2 MG TAB PO SCH ×2 (08:05→20:11)
[2020-11-22] MEDS: SUCRALFATE SUSP 1GM/10ML UD PO SCH ×4 (08:05→20:11)
[2020-11-22] MEDS: BACLOFEN 5MG PER 1/2 TABLET PO SCH ×3 (08:05→20:11)
[2020-11-22] MEDS: LACTULOSE 20 GM/30 ML SYRUP UD PO SCH (08:05)
[2020-11-22] MEDS: PANTOPRAZOLE 40MG TAB (PROTONIX) PO SCH (08:05)
[2020-11-22] MEDS: LIDOCAINE 5% (LIDODERM) PATCH TD SCH (08:05)
[2020-11-22] MEDS: TORSEMIDE 20 MG TAB PO SCH ×2 (08:05→17:46)
[2020-11-22] MEDS: SOLIFENACIN 5 MG TAB PO SCH (08:06)
[2020-11-22] MEDS: MAGNESIUM OXIDE 400MG TAB (MAG-OX) PO SCH ×2 (08:06→20:12)
[2020-11-22] MEDS: PREGABALIN 100 MG CAP (LYRICA) PO SCH ×2 (08:06→20:11)
[2020-11-22] MEDS: ASPIRIN 81MG ENTERIC TABLET PO SCH (08:06)
[2020-11-22] MEDS: POTASSIUM CHLORIDE 10MEQ SR TABLET PO SCH ×2 (08:06→20:12)
[2020-11-22] MEDS: NYSTATIN 100,000 UNITS/GM TOPICAL PWD 15 GM TOP SCH ×2 (08:07→20:13)
[2020-11-22 09:15] LABS: BASO # 0.1 10^3/uL (0.0-0.2); BASO % 0.6 % (0.0-1.0); EOS # 1.2 10^3/uL (0.0-0.5); EOS % 8.4 % (0.0-3.0); HEMATOCRIT 32.7 % (36.0-47.0); HEMOGLOBIN 10.2 g/dl (12.0-15.5); LYMPH # 1.6 10^3/uL (1.5-5.0); LYMPH % 11.5 % (24.0-44.0); MEAN CORPUSCULAR HEMOGLOBIN 27.5 pg (27.0-33.0); MEAN CORPUSCULAR HGB CONC 31.2 g/dl (32.0-36.5); MEAN CORPUSCULAR VOLUME 88.1 fl (80.0-96.0); MONO # 1.3 10^3/uL (0.0-0.8); MONO % 9.5 % (2.0-8.0); NEUTROPHILS # 9.6 10^3/uL (1.5-8.5); NEUTROPHILS % 69.4 % (36.0-66.0); PLATELET COUNT, AUTOMATED 484 10^3/uL (150-450); RED BLOOD COUNT 3.71 10^6/uL (4.00-5.40); WHITE BLOOD COUNT 13.9 10^3/uL (4.0-10.0)
[2020-11-22 10:53] LABS: BLOOD UREA NITROGEN 31 MG/DL (7-18); CALCIUM LEVEL 9.2 MG/DL (8.8-10.2); CARBON DIOXIDE LEVEL 40 MEQ/L (21-32); CHLORIDE LEVEL 85 MEQ/L (98-107); CREATININE FOR GFR 0.74 MG/DL (0.55-1.30); GLOMERULAR FILTRATION RATE > 60.0 (>45); GLUCOSE, FASTING 237 MG/DL (70-100); POTASSIUM SERUM 3.6 MEQ/L (3.5-5.1); SODIUM LEVEL 132 MEQ/L (136-145)
[2020-11-22 10:54] VITALS: O2SAT 97
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
[2020-11-22 14:00] VITALS: BP 121/61
[2020-11-22] MEDS: SENOKOT S TAB PO SCH (20:12)
[2020-11-22] MEDS: ATORVASTATIN 20 MG TAB PO SCH (20:12)
[2020-11-22] MEDS: **NOTE PATIENT COMMENT** MISC XX SCH (20:12)
[2020-11-22 21:00] VITALS: O2SAT 95
[2020-11-22 22:00] VITALS: BP 116/69
[2020-11-23] MEDS: SODIUM CHLORIDE 0.9% INJ 10 ML SYR IV SCH ×2 (05:32→17:50)
[2020-11-23] MEDS: ANALGESIC BALM CRM 3OZ TOP SCH ×5 (05:32→23:28)
[2020-11-23] MEDS: LEVOTHYROXINE 50MCG TABLET (0.05MG) PO SCH (05:32)
[2020-11-23 06:00] VITALS: BP 115/71
[2020-11-23 06:11] LABS: BASO # 0.1 10^3/uL (0.0-0.2); EOS # 1.5 10^3/uL (0.0-0.5); EOS % 10.9 % (0.0-3.0); HEMATOCRIT 32.5 % (36.0-47.0); HEMOGLOBIN 9.9 g/dl (12.0-15.5); LYMPH # 2.2 10^3/uL (1.5-5.0); MEAN CORPUSCULAR HEMOGLOBIN 26.8 pg (27.0-33.0); MEAN CORPUSCULAR HGB CONC 30.5 g/dl (32.0-36.5); MEAN CORPUSCULAR VOLUME 88.1 fl (80.0-96.0); MONO # 1.6 10^3/uL (0.0-0.8); MONO % 11.8 % (2.0-8.0); NEUTROPHILS % 59.9 % (36.0-66.0); PLATELET COUNT, AUTOMATED 494 10^3/uL (150-450); RED BLOOD COUNT 3.69 10^6/uL (4.00-5.40)
[2020-11-23 06:13] LABS: WHITE BLOOD COUNT 13.4 10^3/uL (4.0-10.0)
[2020-11-23 06:33] LABS: BLOOD UREA NITROGEN 29 MG/DL (7-18); CALCIUM LEVEL 9.3 MG/DL (8.8-10.2); CARBON DIOXIDE LEVEL 39 MEQ/L (21-32); CHLORIDE LEVEL 88 MEQ/L (98-107); CREATININE FOR GFR 0.63 MG/DL (0.55-1.30); GLOMERULAR FILTRATION RATE > 60.0 (>45); GLUCOSE, FASTING 149 MG/DL (70-100); POTASSIUM SERUM 3.6 MEQ/L (3.5-5.1); SODIUM LEVEL 133 MEQ/L (136-145)
[2020-11-23] MEDS: ALBUTEROL SULFATE 2.5 MG/0.5 ML INH NEB SOLN NEB SCH ×3 (07:09→23:16)
[2020-11-23] MEDS: diazePAM 2 MG TAB PO SCH ×2 (08:51→22:06)
[2020-11-23] MEDS: LACTULOSE 20 GM/30 ML SYRUP UD PO SCH (08:51)
[2020-11-23] MEDS: LIDOCAINE 5% (LIDODERM) PATCH TD SCH (08:52)
[2020-11-23] MEDS: HumaLOG INSULIN (NovoLOG) PER UNIT SC SCH ×4 (08:52→21:00)
[2020-11-23] MEDS: SUCRALFATE SUSP 1GM/10ML UD PO SCH ×4 (08:55→22:07)
[2020-11-23] MEDS: PANTOPRAZOLE 40MG TAB (PROTONIX) PO SCH (08:56)
[2020-11-23] MEDS: SOLIFENACIN 5 MG TAB PO SCH (08:56)
[2020-11-23] MEDS: MAGNESIUM OXIDE 400MG TAB (MAG-OX) PO SCH ×2 (08:56→22:07)
[2020-11-23] MEDS: POTASSIUM CHLORIDE 10MEQ SR TABLET PO SCH (08:56)
[2020-11-23] MEDS: ASPIRIN 81MG ENTERIC TABLET PO SCH (08:56)
[2020-11-23] MEDS: BACLOFEN 5MG PER 1/2 TABLET PO SCH ×3 (08:56→22:07)
[2020-11-23] MEDS: TORSEMIDE 20 MG TAB PO SCH ×2 (08:56→17:51)
[2020-11-23] MEDS: PREGABALIN 100 MG CAP (LYRICA) PO SCH ×2 (08:57→22:07)
[2020-11-23] MEDS: METOCLOPRAMIDE 10 MG TAB PO PRN (08:57)
[2020-11-23] MEDS: FOLIC ACID 1 MG TAB PO SCH (08:57)
[2020-11-23] MEDS: CYANOCOBALAMIN 250 MCG TABLET PO SCH (08:57)
[2020-11-23] MEDS: NYSTATIN 100,000 UNITS/GM TOPICAL PWD 15 GM TOP SCH ×2 (11:57→22:08)
[2020-11-23] MEDS: IPRATROPIUM 0.5MG/ALBUTEROL 2.5MG INH SOL UD 3ML (DUONEB) NEB PRN (12:24)
[2020-11-23] MEDS: oxyCODONE 5MG TAB PO PRN (15:00)
[2020-11-23 21:00] VITALS: O2SAT 94
[2020-11-23] MEDS: ATORVASTATIN 20 MG TAB PO SCH (22:06)
[2020-11-23] MEDS: SENOKOT S TAB PO SCH (22:07)
[2020-11-23] MEDS: **NOTE PATIENT COMMENT** MISC XX SCH (22:07)
[2020-11-24] MEDS: ANALGESIC BALM CRM 3OZ TOP SCH ×3 (05:41→17:43)
[2020-11-24] MEDS: SODIUM CHLORIDE 0.9% INJ 10 ML SYR IV SCH ×2 (05:41→17:43)
[2020-11-24] MEDS: LEVOTHYROXINE 50MCG TABLET (0.05MG) PO SCH (05:42)
[2020-11-24 06:00] VITALS: BP 116/67
[2020-11-24] MEDS: oxyCODONE 5MG TAB PO PRN ×2 (06:39→18:53)
[2020-11-24] MEDS: ALBUTEROL SULFATE 2.5 MG/0.5 ML INH NEB SOLN NEB SCH ×3 (07:08→23:52)
[2020-11-24 09:00] VITALS: O2SAT 94
[2020-11-24] MEDS: ASPIRIN 81MG ENTERIC TABLET PO SCH (09:13)
[2020-11-24] MEDS: MAGNESIUM OXIDE 400MG TAB (MAG-OX) PO SCH ×2 (09:13→21:07)
[2020-11-24] MEDS: TORSEMIDE 20 MG TAB PO SCH ×2 (09:13→17:41)
[2020-11-24] MEDS: CYANOCOBALAMIN 250 MCG TABLET PO SCH (09:14)
[2020-11-24] MEDS: PREGABALIN 100 MG CAP (LYRICA) PO SCH ×2 (09:14→21:07)
[2020-11-24] MEDS: BACLOFEN 5MG PER 1/2 TABLET PO SCH ×3 (09:14→21:06)
[2020-11-24] MEDS: SOLIFENACIN 5 MG TAB PO SCH (09:14)
[2020-11-24] MEDS: FOLIC ACID 1 MG TAB PO SCH (09:15)
[2020-11-24] MEDS: PANTOPRAZOLE 40MG TAB (PROTONIX) PO SCH (09:15)
[2020-11-24] MEDS: HumaLOG INSULIN (NovoLOG) PER UNIT SC SCH ×4 (09:15→21:00)
[2020-11-24] MEDS: POTASSIUM CHLORIDE 10MEQ SR TABLET PO SCH (09:16)
[2020-11-24] MEDS: LACTULOSE 20 GM/30 ML SYRUP UD PO SCH (09:16)
[2020-11-24] MEDS: SUCRALFATE SUSP 1GM/10ML UD PO SCH ×4 (09:16→21:07)
[2020-11-24] MEDS: LIDOCAINE 5% (LIDODERM) PATCH TD SCH (09:17)
[2020-11-24] MEDS: diazePAM 2 MG TAB PO SCH ×2 (09:17→21:06)
[2020-11-24] MEDS: NYSTATIN 100,000 UNITS/GM TOPICAL PWD 15 GM TOP SCH ×2 (09:18→21:08)
[2020-11-24] MEDS: IPRATROPIUM 0.5MG/ALBUTEROL 2.5MG INH SOL UD 3ML (DUONEB) NEB PRN (14:04)
[2020-11-24 21:00] VITALS: O2SAT 92
[2020-11-24] MEDS: SENOKOT S TAB PO SCH (21:07)
[2020-11-24] MEDS: **NOTE PATIENT COMMENT** MISC XX SCH (21:07)
[2020-11-24] MEDS: ATORVASTATIN 20 MG TAB PO SCH (21:07)
[2020-11-25] MEDS: ANALGESIC BALM CRM 3OZ TOP SCH ×5 (00:26→23:46)
[2020-11-25] MEDS: SODIUM CHLORIDE 0.9% INJ 10 ML SYR IV SCH ×2 (05:53→17:57)
[2020-11-25] MEDS: LEVOTHYROXINE 50MCG TABLET (0.05MG) PO SCH (05:53)
[2020-11-25 06:00] VITALS: BP 114/67
[2020-11-25] MEDS: ALBUTEROL SULFATE 2.5 MG/0.5 ML INH NEB SOLN NEB SCH ×3 (07:08→23:21)
[2020-11-25] MEDS: LACTULOSE 20 GM/30 ML SYRUP UD PO SCH (09:25)
[2020-11-25] MEDS: SUCRALFATE SUSP 1GM/10ML UD PO SCH ×4 (09:25→21:33)
[2020-11-25] MEDS: PANTOPRAZOLE 40MG TAB (PROTONIX) PO SCH (09:26)
[2020-11-25] MEDS: CYANOCOBALAMIN 250 MCG TABLET PO SCH (09:26)
[2020-11-25] MEDS: diazePAM 2 MG TAB PO SCH ×2 (09:26→21:32)
[2020-11-25] MEDS: BACLOFEN 5MG PER 1/2 TABLET PO SCH ×3 (09:27→21:32)
[2020-11-25] MEDS: ASPIRIN 81MG ENTERIC TABLET PO SCH (09:27)
[2020-11-25] MEDS: MAGNESIUM OXIDE 400MG TAB (MAG-OX) PO SCH ×2 (09:27→21:33)
[2020-11-25] MEDS: PREGABALIN 100 MG CAP (LYRICA) PO SCH ×2 (09:27→21:32)
[2020-11-25] MEDS: FOLIC ACID 1 MG TAB PO SCH (09:27)
[2020-11-25] MEDS: POTASSIUM CHLORIDE 10MEQ SR TABLET PO SCH (09:28)
[2020-11-25] MEDS: TORSEMIDE 20 MG TAB PO SCH ×2 (09:29→17:54)
[2020-11-25] MEDS: SOLIFENACIN 5 MG TAB PO SCH (09:29)
[2020-11-25] MEDS: HumaLOG INSULIN (NovoLOG) PER UNIT SC SCH ×4 (09:30→20:49)
[2020-11-25] MEDS: LIDOCAINE 5% (LIDODERM) PATCH TD SCH (09:31)
[2020-11-25] MEDS: NYSTATIN 100,000 UNITS/GM TOPICAL PWD 15 GM TOP SCH ×2 (09:31→21:32)
[2020-11-25] MEDS: oxyCODONE 5MG TAB PO PRN ×2 (10:06→23:47)
[2020-11-25 14:00] VITALS: BP 117/60
[2020-11-25 14:09] VITALS: O2SAT 98
[2020-11-25] MEDS: SENOKOT S TAB PO SCH (21:33)
[2020-11-25] MEDS: **NOTE PATIENT COMMENT** MISC XX SCH (21:33)
[2020-11-25] MEDS: ATORVASTATIN 20 MG TAB PO SCH (21:33)
[2020-11-25 23:16] VITALS: O2SAT 97
[2020-11-25 23:21] VITALS: O2SAT 96
[2020-11-26] MEDS: ANALGESIC BALM CRM 3OZ TOP SCH ×3 (06:29→17:23)
[2020-11-26 06:30] VITALS: BP 88/52
[2020-11-26] MEDS: LEVOTHYROXINE 50MCG TABLET (0.05MG) PO SCH (06:30)
[2020-11-26] MEDS: SODIUM CHLORIDE 0.9% INJ 10 ML SYR IV SCH ×2 (06:30→17:25)
[2020-11-26] MEDS ORDERED: NS 1,000 ML IV ONE (06:55)
[2020-11-26 07:07] LABS: HEMATOCRIT 29.3 % (36.0-47.0); HEMOGLOBIN 8.9 g/dl (12.0-15.5); MEAN CORPUSCULAR HEMOGLOBIN 26.8 pg (27.0-33.0); MEAN CORPUSCULAR HGB CONC 30.4 g/dl (32.0-36.5); MEAN CORPUSCULAR VOLUME 88.3 fl (80.0-96.0); PLATELET COUNT, AUTOMATED 409 10^3/uL (150-450); RED BLOOD COUNT 3.32 10^6/uL (4.00-5.40)
[2020-11-26] MEDS: ALBUTEROL SULFATE 2.5 MG/0.5 ML INH NEB SOLN NEB SCH ×3 (07:14→23:54)
[2020-11-26 07:26] LABS: BLOOD UREA NITROGEN 22 MG/DL (7-18); CALCIUM LEVEL 8.5 MG/DL (8.8-10.2); CARBON DIOXIDE LEVEL 36 MEQ/L (21-32); CHLORIDE LEVEL 97 MEQ/L (98-107); CREATININE FOR GFR 0.61 MG/DL (0.55-1.30); GLOMERULAR FILTRATION RATE > 60.0 (>45); GLUCOSE, FASTING 147 MG/DL (70-100); POTASSIUM SERUM 3.7 MEQ/L (3.5-5.1); SODIUM LEVEL 137 MEQ/L (136-145)
[2020-11-26] MEDS: HumaLOG INSULIN (NovoLOG) PER UNIT SC SCH ×4 (08:42→20:43)
[2020-11-26] MEDS: SUCRALFATE SUSP 1GM/10ML UD PO SCH ×4 (08:42→20:50)
[2020-11-26] MEDS: POTASSIUM CHLORIDE 10MEQ SR TABLET PO SCH (08:43)
[2020-11-26] MEDS: BACLOFEN 5MG PER 1/2 TABLET PO SCH ×3 (08:43→20:50)
[2020-11-26] MEDS: LIDOCAINE 5% (LIDODERM) PATCH TD SCH (08:43)
[2020-11-26] MEDS: ASPIRIN 81MG ENTERIC TABLET PO SCH (08:43)
[2020-11-26] MEDS: SOLIFENACIN 5 MG TAB PO SCH (08:43)
[2020-11-26] MEDS: PREGABALIN 100 MG CAP (LYRICA) PO SCH ×2 (08:43→20:50)
[2020-11-26] MEDS: LACTULOSE 20 GM/30 ML SYRUP UD PO SCH (08:43)
[2020-11-26] MEDS: METOCLOPRAMIDE 10 MG TAB PO PRN (08:44)
[2020-11-26] MEDS: CYANOCOBALAMIN 250 MCG TABLET PO SCH (08:44)
[2020-11-26] MEDS: FOLIC ACID 1 MG TAB PO SCH (08:44)
[2020-11-26] MEDS: hydrOXYzine 25 MG TAB PO PRN (08:44)
[2020-11-26] MEDS: diazePAM 2 MG TAB PO SCH ×2 (08:44→20:50)
[2020-11-26] MEDS: MAGNESIUM OXIDE 400MG TAB (MAG-OX) PO SCH ×2 (08:44→20:50)
[2020-11-26] MEDS: PANTOPRAZOLE 40MG TAB (PROTONIX) PO SCH (08:44)
[2020-11-26] MEDS: NYSTATIN 100,000 UNITS/GM TOPICAL PWD 15 GM TOP SCH ×2 (08:46→20:51)
[2020-11-26 08:50] VITALS: O2SAT 95
[2020-11-26] MEDS: TORSEMIDE 20 MG TAB PO SCH ×2 (09:00→17:23)
[2020-11-26] MEDS: oxyCODONE 5MG TAB PO PRN (11:44)
[2020-11-26] MEDS: ATORVASTATIN 20 MG TAB PO SCH (20:50)
[2020-11-26] MEDS: **NOTE PATIENT COMMENT** MISC XX SCH (20:50)
[2020-11-26] MEDS: SENOKOT S TAB PO SCH (20:50)
[2020-11-26 22:32] VITALS: O2SAT 92
[2020-11-27] MEDS: oxyCODONE 5MG TAB PO PRN ×2 (00:11→12:36)
[2020-11-27] MEDS: ANALGESIC BALM CRM 3OZ TOP SCH ×4 (00:12→17:27)
[2020-11-27] MEDS: LEVOTHYROXINE 50MCG TABLET (0.05MG) PO SCH (05:43)
[2020-11-27] MEDS: SODIUM CHLORIDE 0.9% INJ 10 ML SYR IV SCH ×2 (05:44→17:27)
[2020-11-27 06:00] VITALS: BP 133/71
[2020-11-27] MEDS: ALBUTEROL SULFATE 2.5 MG/0.5 ML INH NEB SOLN NEB SCH ×2 (07:21→15:00)
[2020-11-27] MEDS: SUCRALFATE SUSP 1GM/10ML UD PO SCH ×4 (07:53→21:28)
[2020-11-27] MEDS: HumaLOG INSULIN (NovoLOG) PER UNIT SC SCH ×4 (07:54→21:00)
[2020-11-27] MEDS: LACTULOSE 20 GM/30 ML SYRUP UD PO SCH (09:18)
[2020-11-27] MEDS: LIDOCAINE 5% (LIDODERM) PATCH TD SCH (09:18)
[2020-11-27] MEDS: PREGABALIN 100 MG CAP (LYRICA) PO SCH ×2 (09:19→21:29)
[2020-11-27] MEDS: CYANOCOBALAMIN 250 MCG TABLET PO SCH (09:19)
[2020-11-27] MEDS: PANTOPRAZOLE 40MG TAB (PROTONIX) PO SCH (09:19)
[2020-11-27] MEDS: MAGNESIUM OXIDE 400MG TAB (MAG-OX) PO SCH ×2 (09:19→21:29)
[2020-11-27] MEDS: POTASSIUM CHLORIDE 10MEQ SR TABLET PO SCH (09:19)
[2020-11-27] MEDS: TORSEMIDE 20 MG TAB PO SCH ×2 (09:19→17:25)
[2020-11-27] MEDS: BACLOFEN 5MG PER 1/2 TABLET PO SCH ×3 (09:19→21:29)
[2020-11-27] MEDS: FOLIC ACID 1 MG TAB PO SCH (09:19)
[2020-11-27] MEDS: ASPIRIN 81MG ENTERIC TABLET PO SCH (09:20)
[2020-11-27] MEDS: diazePAM 2 MG TAB PO SCH ×2 (09:20→21:36)
[2020-11-27] MEDS: NYSTATIN 100,000 UNITS/GM TOPICAL PWD 15 GM TOP SCH ×2 (09:20→21:30)
[2020-11-27] MEDS: SOLIFENACIN 5 MG TAB PO SCH (09:20)
[2020-11-27] MEDS: ATORVASTATIN 20 MG TAB PO SCH (21:28)
[2020-11-27] MEDS: SENOKOT S TAB PO SCH (21:29)
[2020-11-27] MEDS: **NOTE PATIENT COMMENT** MISC XX SCH (21:30)
[2020-11-28] MEDS: ANALGESIC BALM CRM 3OZ TOP SCH ×4 (00:12→17:29)
[2020-11-28] MEDS: oxyCODONE 5MG TAB PO PRN ×2 (00:14→13:10)
[2020-11-28] MEDS: ALBUTEROL SULFATE 2.5 MG/0.5 ML INH NEB SOLN NEB SCH ×4 (00:27→23:53)
[2020-11-28 06:00] VITALS: BP 127/78
[2020-11-28] MEDS: LEVOTHYROXINE 50MCG TABLET (0.05MG) PO SCH (06:06)
[2020-11-28] MEDS: SODIUM CHLORIDE 0.9% INJ 10 ML SYR IV SCH ×2 (06:07→17:31)
[2020-11-28] MEDS: HumaLOG INSULIN (NovoLOG) PER UNIT SC SCH ×4 (07:04→21:00)
[2020-11-28] MEDS: SUCRALFATE SUSP 1GM/10ML UD PO SCH ×4 (11:03→20:48)
[2020-11-28] MEDS: LIDOCAINE 5% (LIDODERM) PATCH TD SCH (11:28)
[2020-11-28] MEDS: LACTULOSE 20 GM/30 ML SYRUP UD PO SCH (11:28)
[2020-11-28] MEDS: POTASSIUM CHLORIDE 10MEQ SR TABLET PO SCH (11:29)
[2020-11-28] MEDS: BACLOFEN 5MG PER 1/2 TABLET PO SCH ×3 (11:30→20:48)
[2020-11-28] MEDS: diazePAM 2 MG TAB PO SCH ×2 (11:30→20:47)
[2020-11-28] MEDS: CYANOCOBALAMIN 250 MCG TABLET PO SCH (11:31)
[2020-11-28] MEDS: FOLIC ACID 1 MG TAB PO SCH (11:32)
[2020-11-28] MEDS: SOLIFENACIN 5 MG TAB PO SCH (11:32)
[2020-11-28] MEDS: PANTOPRAZOLE 40MG TAB (PROTONIX) PO SCH (11:32)
[2020-11-28] MEDS: ASPIRIN 81MG ENTERIC TABLET PO SCH (11:32)
[2020-11-28] MEDS: MAGNESIUM OXIDE 400MG TAB (MAG-OX) PO SCH ×2 (11:33→20:48)
[2020-11-28] MEDS: PREGABALIN 100 MG CAP (LYRICA) PO SCH ×2 (11:33→20:47)
[2020-11-28] MEDS: TORSEMIDE 20 MG TAB PO SCH ×2 (11:34→17:30)
[2020-11-28] MEDS: NYSTATIN 100,000 UNITS/GM TOPICAL PWD 15 GM TOP SCH ×2 (11:37→20:46)
[2020-11-28] MEDS: SENOKOT S TAB PO SCH (20:47)
[2020-11-28] MEDS: ATORVASTATIN 20 MG TAB PO SCH (20:48)
[2020-11-28] MEDS: **NOTE PATIENT COMMENT** MISC XX SCH (20:48)
[2020-11-29] MEDS: ANALGESIC BALM CRM 3OZ TOP SCH ×5 (01:37→23:44)
[2020-11-29] MEDS: oxyCODONE 5MG TAB PO PRN ×2 (04:27→16:55)
[2020-11-29] MEDS: LEVOTHYROXINE 50MCG TABLET (0.05MG) PO SCH (05:15)
[2020-11-29] MEDS: SODIUM CHLORIDE 0.9% INJ 10 ML SYR IV SCH ×2 (05:16→16:56)
[2020-11-29 06:00] VITALS: BP 102/58
[2020-11-29] MEDS: ALBUTEROL SULFATE 2.5 MG/0.5 ML INH NEB SOLN NEB SCH ×3 (07:15→23:37)
[2020-11-29] MEDS: HumaLOG INSULIN (NovoLOG) PER UNIT SC SCH ×4 (07:34→21:00)
[2020-11-29] MEDS: SUCRALFATE SUSP 1GM/10ML UD PO SCH ×4 (07:34→21:35)
[2020-11-29] MEDS: LACTULOSE 20 GM/30 ML SYRUP UD PO SCH (09:27)
[2020-11-29] MEDS: LIDOCAINE 5% (LIDODERM) PATCH TD SCH (09:27)
[2020-11-29] MEDS: PANTOPRAZOLE 40MG TAB (PROTONIX) PO SCH (09:27)
[2020-11-29] MEDS: BACLOFEN 5MG PER 1/2 TABLET PO SCH ×3 (09:28→21:34)
[2020-11-29] MEDS: CYANOCOBALAMIN 250 MCG TABLET PO SCH (09:28)
[2020-11-29] MEDS: TORSEMIDE 20 MG TAB PO SCH ×2 (09:29→16:54)
[2020-11-29] MEDS: MAGNESIUM OXIDE 400MG TAB (MAG-OX) PO SCH ×2 (09:29→21:34)
[2020-11-29] MEDS: POTASSIUM CHLORIDE 10MEQ SR TABLET PO SCH (09:30)
[2020-11-29] MEDS: ASPIRIN 81MG ENTERIC TABLET PO SCH (09:30)
[2020-11-29] MEDS: FOLIC ACID 1 MG TAB PO SCH (09:30)
[2020-11-29] MEDS: PREGABALIN 100 MG CAP (LYRICA) PO SCH ×2 (09:30→21:35)
[2020-11-29] MEDS: SOLIFENACIN 5 MG TAB PO SCH (09:31)
[2020-11-29] MEDS: NYSTATIN 100,000 UNITS/GM TOPICAL PWD 15 GM TOP SCH ×2 (09:32→21:37)
[2020-11-29] MEDS: diazePAM 2 MG TAB PO SCH ×2 (09:32→21:33)
--- NOTE | 2020-11-29 13:25 | IPNPDOC ---
Subjective General Date Seen: Nov 29, 2020 Subject Chief Complaint/History The patient is a 65-year-old female admitted with a reason for visit of Uti, Overactive Bladder. Patient with chronic sacral, right and left ischial wounds. Patient is feeling well. Still has leaking urine around the Wood. Current Medications Current Medications Current Medications Medications (Trade) Dose Ordered Sig/Yonatan Route PRN Reason Start Time Stop Time Status Last Admin Dose Admin Acetaminophen (Tylenol Tab) 650 mg Q4HP PRN PO PAIN OR DISCOMFORT 09/07/20 21:10 10/06/20 17:47 DC 10/06/20 16:35 Acetaminophen (Tylenol Tab) 650 mg Q4HP PRN PO FEVER 11/06/20 18:15 11/06/20 18:50 Acetaminophen (Tylenol Tab) 1,000 mg TID PO 10/06/20 21:00 10/07/20 16:32 DC 10/07/20 16:21 Acetaminophen (Tylenol Tab) 1,000 mg TID PO 10/07/20 16:00 Cancel Acetaminophen (Tylenol Tab) 1,000 mg TID PO 10/07/20 21:00 11/06/20 18:13 DC 11/05/20 21:50 Albuterol Sulfate (Proventil Neb) 2.5 mg Q6HP PRN NEB SOB/WHEEZING 09/17/20 10:20 11/08/20 10:06 DC Albuterol Sulfate (Proventil Neb) 2.5 mg RQ8H NEB 11/14/20 00:00 11/29/20 07:15 Albuterol/ Ipratropium (Duoneb (Ipr 0.5mg/Alb 2.5mg)) 3 ml Q4HP PRN NEB SOB/WHEEZING 11/08/20 10:00 11/24/20 14:04 Artificial Tears (Akwa Tears) 2 drop TID PRN OU DRY EYES 09/07/20 13:55 11/15/20 16:29 DC 10/09/20 01:29 Aspirin (Ecotrin) 81 mg DAILY PO 09/07/20 09:00 10/17/20 18:15 DC 10/17/20 08:50 Aspirin (Ecotrin) 81 mg DAILY PO 11/14/20 09:00 11/29/20 09:30 Atorvastatin Calcium (Lipitor) 40 mg QHS PO 09/07/20 21:00 6/3/21 12:33 DC 10/31/20 21:46 Atorvastatin Calcium (Lipitor) 40 mg QHS PO 11/01/20 21:00 11/28/20 20:48 Baclofen (Lioresal) 5 mg BID PO 10/08/20 09:00 10/12/20 11:28 DC 10/12/20 08:06 Baclofen (Lioresal) 5 mg BID PO 10/03/20 21:00 10/04/20 18:00 DC 10/04/20 08:31 Baclofen (Lioresal) 5 mg DAILY PO 10/05/20 09:00 10/05/20 11:40 DC 10/05/20 08:50 Baclofen (Lioresal) 5 mg TID PO 10/12/20 16:00 11/29/20 09:28 Baclofen (Lioresal) 5 mg TID PO 10/07/20 09:00 10/07/20 06:49 DC Baclofen (Lioresal) 10 mg QHS PO 10/04/20 21:00 10/05/20 11:40 DC 10/04/20 20:25 Baclofen (Lioresal) 10 mg TID PO 10/05/20 16:00 10/06/20 22:32 DC 10/06/20 22:03 Buprenorphine/ Naloxone (Suboxone 2/ 0.5mg) 1 tab BID SL 09/28/20 21:00 09/29/20 10:30 DC 09/29/20 08:27 Buprenorphine/ Naloxone (Suboxone 2/ 0.5mg) 1 tab QPM SL 09/29/20 21:00 10/02/20 22:06 DC 10/02/20 20:41 Buprenorphine/ Naloxone (Suboxone 2/ 0.5mg) 1 tab Taper DAILY SL 10/03/20 09:00 10/09/20 08:59 DC 10/08/20 09:40 Buprenorphine/ Naloxone (Suboxone 2/ 0.5mg) 2 tab BID SL 09/07/20 21:00 09/28/20 11:12 DC 09/28/20 05:42 Buprenorphine/ Naloxone (Suboxone 2/ 0.5mg) 2 tab BID SL 11/01/20 12:25 11/01/20 18:52 DC 11/01/20 14:01 Buprenorphine/ Naloxone (Suboxone 2/ 0.5mg) 2 tab DAILY SL 09/30/20 09:00 10/02/20 22:06 DC 10/02/20 09:01 Calcium Carbonate (Tums) 1,000 mg Q4HP PRN PO HEARTBURN 10/30/20 11:25 10/30/20 11:39 Cefepime HCl 1 gm/ Dextrose 50 ml @ 100 mls/hr Q12H IV 09/19/20 21:00 09/20/20 18:32 DC 09/20/20 09:18 Cefepime HCl 1 gm/ Dextrose 50 ml @ 100 mls/hr Q8H IV 09/20/20 18:25 09/28/20 11:43 DC 09/28/20 03:03 Cefepime HCl 1 gm/ Dextrose 50 ml @ 100 mls/hr Q8H IV 10/01/20 07:00 10/01/20 21:05 DC 10/01/20 16:10 Ceftriaxone Sodium 1 gm/ Dextrose 50 ml @ 100 mls/hr Q24H IV 09/07/20 13:00 09/07/20 14:56 DC 09/07/20 13:43 Cod Liver Oil/ Zinc Oxide (Desitin) 1 dose BID TOP 10/02/20 09:00 11/15/20 10:07 DC 11/14/20 10:13 Collagenase (SantyL) Apply to wound bed ... DAILY TOP 10/09/20 09:00 10/23/20 15:32 DC 10/21/20 09:26 Cyanocobalamin (Vitamin B12) 250 mcg DAILY PO 09/07/20 09:00 11/01/20 12:33 DC 11/01/20 09:45 Cyanocobalamin (Vitamin B12) 250 mcg DAILY PO 11/02/20 09:00 11/29/20 09:28 Dextrose (Dextrose 50%) 25 ml ASDIRECTED PRN IV SEE LABEL COMMENTS 09/07/20 14:10 11/01/20 12:33 DC 10/07/20 06:56 Dextrose (Dextrose 50%) 25 ml ASDIRECTED PRN IV SEE LABEL COMMENTS 11/01/20 20:30 Diatrizoate Meglum/ Diatrizoate Sod (Gastrografin) 10 ml Q30M PO 10/23/20 10:45 10/23/20 11:16 DC 10/23/20 12:01 Diazepam (Valium) 1 mg BID PO 10/13/20 09:00 11/29/20 09:32 Diphenhydramine HCl (Benadryl) 25 mg Q6HP PRN IV drug rash or itchy 10/04/20 08:00 10/09/20 08:36 Docusate Sodium (Colace) 100 mg BID PO 09/07/20 21:00 09/30/20 16:42 DC 09/30/20 09:39 Docusate Sodium (Colace) 200 mg BID PO 09/30/20 21:00 10/02/20 21:50 DC 10/02/20 20:41 Dronabinol (Marinol) 2.5 mg BID@12,1730 PO 10/20/20 17:30 10/31/20 12:35 DC 10/30/20 17:25 Duloxetine HCl (Cymbalta) 45 mg BID PO 10/12/20 11:35 10/12/20 11:39 DC Duloxetine HCl (Cymbalta) 60 mg QHS PO 09/07/20 21:00 10/12/20 11:37 DC 10/11/20 21:57 Enoxaparin Sodium (Lovenox) 40 mg DAILY SC 09/08/20 09:00 10/08/20 16:07 DC 10/08/20 09:38 Enoxaparin Sodium (Lovenox) 120 mg BID SC 10/08/20 21:00 10/17/20 13:16 DC 10/17/20 08:56 Enoxaparin Sodium (Lovenox) 130 mg Q12H SC 11/06/20 22:00 11/09/20 07:32 DC 11/08/20 21:50 Famotidine (Pepcid) 20 mg QHS PRN PO HEARTBURN 09/07/20 13:55 10/11/20 09:26 DC Fentanyl Citrate (Sublimaze) 25 mcg Q5MP PRN IV PAIN LEVEL 5-10 09/15/20 19:00 09/15/20 20:30 DC Fentanyl Citrate (Sublimaze) 25 mcg Q5MP PRN IV PAIN LEVEL 5-10 09/20/20 17:10 09/20/20 18:10 DC Fentanyl Citrate (Sublimaze) 25 mcg Q5MP PRN IV PAIN LEVEL 5-10 09/20/20 17:45 09/20/20 18:45 DC Ferrous Gluconate (Fergon) 324 mg QHS PO 09/07/20 21:00 11/01/20 12:33 DC 10/31/20 21:45 Fluconazole (Diflucan) 150 mg DAILY PO 10/03/20 09:00 10/13/20 08:59 DC 10/12/20 08:11 Folic Acid (Folic Acid) 1 mg DAILY PO 09/07/20 09:00 11/01/20 12:33 DC 11/01/20 09:45 Folic Acid (Folic Acid) 1 mg DAILY PO 11/02/20 09:00 11/29/20 09:30 Furosemide (LASIX injection) 40 mg BID@ IV 10/17/20 17:00 10/17/20 13:16 DC Furosemide (LASIX injection) 40 mg Q12H IV 11/08/20 05:00 11/14/20 12:33 DC 11/14/20 04:42 Furosemide (LASIX injection) 40 mg Q8H IV 10/19/20 13:00 11/01/20 12:33 DC 11/01/20 04:45 Furosemide (LASIX injection) 40 mg Q8H IV 11/01/20 21:00 11/07/20 19:10 DC 11/06/20 14:18 Furosemide (LASIX injection) 60 mg BID@, IV 11/16/20 17:00 11/16/20 11:58 DC Furosemide (Lasix) 20 mg DAILY PO 09/23/20 09:00 09/24/20 08:53 DC 09/23/20 11:18 Furosemide (Lasix) 40 mg DAILY PO 09/08/20 09:00 09/07/20 14:10 DC Furosemide (Lasix) 40 mg DAILY PO 09/10/20 09:00 09/10/20 14:40 DC 09/10/20 08:50 Furosemide (Lasix) 40 mg DAILY PO 09/12/20 09:00 09/21/20 07:14 DC 09/19/20 09:22 Furosemide (Lasix) 40 mg DAILY PO 09/24/20 09:00 10/13/20 14:33 DC 10/13/20 10:14 Furosemide (Lasix) 40 mg DAILY PO 10/14/20 09:00 10/13/20 17:19 DC Furosemide 250 mg/ Dextrose 250 ml @ 10 mls/hr Q24H IV 11/19/20 10:00 11/19/20 07:19 DC Furosemide 250 mg/ Dextrose 250 ml @ 10 mls/hr Q24H IV 11/19/20 10:00 11/21/20 10:16 DC 11/20/20 08:13 Furosemide 250 mg/ Dextrose 250 ml @ 12.63 mls/ hr [id number] IV 11/16/20 14:00 11/18/20 08:04 DC 11/16/20 14:35 Gabapentin (Neurontin) 600 mg TID PO 11/02/20 16:00 11/03/20 14:38 DC 11/03/20 09:09 Gabapentin (Neurontin) 600 mg Taper DAILY PO 11/03/20 16:00 11/21/20 15:59 DC 11/21/20 10:52 Gabapentin (Neurontin) 900 mg TID PO 09/07/20 16:00 11/02/20 13:18 DC 11/02/20 09:05 Glucagon (Glucagon) 1 mg ASDIRECTED PRN SC SEE LABEL COMMENTS 09/07/20 14:10 11/01/20 12:33 DC Glucagon (Glucagon) 1 mg ASDIRECTED PRN SC SEE LABEL COMMENTS 11/01/20 20:30 Glucose (Glucose) 16 GM ASDIRECTED PRN PO SEE LABEL COMMENTS 09/07/20 14:10 11/01/20 12:33 DC Glucose (Glucose) 16 GM ASDIRECTED PRN PO SEE LABEL COMMENTS 11/01/20 20:30 Heparin Sodium (Heparin (Flush)) 200 units ASDIRECTED PRN IV SEE LABEL COMMENTS 09/10/20 13:20 09/21/20 15:43 DC 09/19/20 20:42 Heparin Sodium (Heparin (Flush)) 200 units ASDIRECTED PRN IV SEE LABEL COMMENTS 09/21/20 16:00 09/28/20 11:57 DC 09/27/20 09:37 Heparin Sodium (Heparin (Flush)) 200 units ASDIRECTED PRN IV SEE LABEL COMMENTS 10/02/20 19:00 11/21/20 10:41 Heparin Sodium (Heparin (Flush)) 200 units PICC IV 09/10/20 18:00 09/21/20 15:43 DC 09/21/20 05:51 Heparin Sodium (Heparin (Flush)) 200 units PICC IV 09/21/20 18:00 09/28/20 11:57 DC 09/28/20 05:40 Heparin Sodium (Heparin (Flush)) 200 units PICC IV 10/03/20 06:00 11/29/20 05:16 Home Med (Med Rec Complete!) ASDIRECTED XX 09/07/20 13:00 09/07/20 13:00 DC Hydrocortisone (Hydrocortisone 1% Cream) APPLY TO RASH ON CHEST ... BIDP PRN TOP itchy rash 10/04/20 09:40 10/07/20 11:20 Hydromorphone HCl (Dilaudid) 0.2 mg Q5MP PRN IV PAIN LEVEL 4-7 09/20/20 17:10 09/20/20 18:10 DC Hydromorphone HCl (Dilaudid) 0.2 mg Q5MP PRN IV PAIN LEVEL 4-7 09/20/20 17:45 09/20/20 18:45 DC Hydroxyzine HCl (Atarax) 25 mg TID PRN PO ANXIETY 09/07/20 13:55 11/26/20 08:44 Ibuprofen (Advil) 600 mg Q8HP PRN PO MILD PAIN (PS 1-4) 10/12/20 05:05 10/17/20 18:18 DC 10/17/20 16:50 Insulin Human Lispro (HumaLOG INSULIN) SEE PROTOCOL TABLE AC SC 09/07/20 17:30 11/01/20 12:33 DC 11/01/20 09:43 Insulin Human Lispro (HumaLOG INSULIN) SEE PROTOCOL TABLE AC SC 11/02/20 07:30 11/29/20 12:34 Insulin Human Lispro (HumaLOG INSULIN) SEE PROTOCOL TABLE QHS SC 09/07/20 21:00 11/01/20 12:33 DC 10/10/20 21:00 Insulin Human Lispro (HumaLOG INSULIN) SEE PROTOCOL TABLE QHS SC 11/01/20 21:00 Ketorolac Tromethamine (ToRADol) 15 mg Q6HP PRN IV pain 10/06/20 17:45 10/11/20 17:44 DC 10/11/20 06:35 Lactated Ringer's 1,000 ml @ 100 mls/hr Q10H IV 09/15/20 19:00 09/15/20 20:30 DC Lactated Ringer's 1,000 ml @ 100 mls/hr Q10H IV 09/20/20 17:10 09/20/20 18:10 DC Lactated Ringer's 1,000 ml @ 100 mls/hr Q10H IV 09/20/20 17:45 09/20/20 18:45 DC Lactulose (Cephulac) 30 ml BID PO 10/17/20 21:00 10/18/20 12:57 DC 10/18/20 09:12 Lactulose (Cephulac) 30 ml DAILY PO 10/28/20 09:00 11/29/20 09:27 Lactulose (Cephulac) 30 ml Q6H PO 10/18/20 12:00 10/27/20 10:08 DC 10/27/20 05:19 Levofloxacin (Levaquin) 750 mg DAILY@1800 PO 11/10/20 18:00 11/19/20 23:00 DC 11/19/20 17:42 Levothyroxine Sodium (Synthroid) 50 mcg DAILY@06 PO 11/02/20 06:00 11/29/20 05:15 Levothyroxine Sodium (Synthroid) 50 mcg DAILY@0600 PO 09/07/20 06:00 11/01/20 12:33 DC 11/01/20 05:49 Lidocaine (Lidoderm Patch) 1 patch DAILY TD 10/05/20 09:00 11/29/20 09:27 Lorazepam (Ativan) 1 mg Q2HP PRN PO ANXIETY 11/01/20 12:30 11/01/20 18:47 DC Magnesium Hydroxide (Milk Of Magnesia) 30 ml BID PO 10/06/20 21:00 10/27/20 10:08 DC 10/26/20 21:44 Magnesium Hydroxide (Milk Of Magnesia) 30 ml DAILYPRN PRN PO CONSTIPATION 10/05/20 11:35 10/06/20 13:41 DC 10/06/20 08:24 Magnesium Oxide (Mag-Ox) 400 mg BID PO 10/22/20 09:00 11/01/20 12:33 DC 11/01/20 09:44 Magnesium Oxide (Mag-Ox) 400 mg BID PO 11/01/20 21:00 11/29/20 09:29 Magnesium Sulfate/ Dextrose 1 gm/IV Miscellaneous Supplies 100 ml @ 100 mls/hr Q1H IV 10/20/20 09:00 10/20/20 12:59 DC 10/20/20 12:00 Magnesium Sulfate/ Dextrose 1 gm/IV Miscellaneous Supplies 100 ml @ 100 mls/hr Q1H IV 10/22/20 08:00 10/22/20 09:59 DC 10/22/20 11:59 Meloxicam (Mobic) 7.5 mg DAILY PO 09/07/20 09:00 09/09/20 15:16 DC 09/09/20 10:15 Menthol/Methyl Salicylate (Bengay Cream) 1 dose Q6H TOP 11/20/20 18:00 11/29/20 09:32 Menthol/Methyl Salicylate (Bengay Cream) 1 dose QID TOP 11/15/20 21:00 11/20/20 14:27 DC 11/20/20 12:24 Menthol/Methyl Salicylate (Bengay Cream) 1 dose TID TOP 10/30/20 09:00 11/15/20 18:56 DC 11/15/20 17:52 Meropenem 1 gm/IV Miscellaneous Supplies 50 ml @ 100 mls/hr Q8H IV 11/06/20 17:00 11/10/20 13:53 DC 11/10/20 08:51 Methocarbamol (Robaxin) 500 mg Q6HP PRN PO spasms 09/23/20 08:00 09/24/20 07:29 DC Methocarbamol (Robaxin) 500 mg QID PRN PO MUSCLE SPASMS 09/07/20 13:55 09/22/20 15:18 DC 09/17/20 18:33 Metoclopramide HCl (REGLAN INJection) 10 mg Q6HP PRN IV REFRACTORY NAUSEA 10/18/20 16:25 10/31/20 07:58 DC 10/30/20 00:38 Metoclopramide HCl (Reglan) 5 mg BID PO 09/07/20 09:00 10/18/20 16:24 DC 10/18/20 09:12 Metoclopramide HCl (Reglan) 10 mg Q6HP PRN PO NAUSEA OR VOMITING 10/31/20 08:00 11/26/20 08:44 Metolazone (Zaroxolyn) 5 mg DAILY PO 11/17/20 09:00 11/18/20 08:04 DC Midazolam HCl (Versed) 1 mg ASDIRECTED PRN IV Q5 MIN ..MAY REPEAT X1 09/15/20 19:30 09/15/20 20:15 DC 09/15/20 19:33 Miscellaneous (Unresolved Clarification Entry) SEE LABEL COMMENTS DAILY XX 10/07/20 09:00 10/07/20 16:31 DC 10/07/20 09:00 Morphine Sulfate (Roxanol) 5 mg Q2HP PRN SL SEVERE PAIN (PS 8-10) 11/01/20 12:30 11/01/20 18:47 DC Non-Formulary Medication ( See Comment Field Below ) REMOVE LIDODERM PATCH DAILY@21 XX 10/05/20 21:00 11/28/20 20:48 Nystatin (Mycostatin Powder, Nystop) Apply to groin, abdomi... BID TOP 09/23/20 09:00 11/29/20 09:32 Ondansetron HCl (ZOFRAN INJection) 4 mg Q4HP PRN IV NAUSEA OR VOMITING 09/15/20 19:00 09/15/20 20:30 DC Ondansetron HCl (ZOFRAN INJection) 4 mg Q4HP PRN IV NAUSEA OR VOMITING 09/20/20 17:10 09/20/20 18:10 DC Ondansetron HCl (ZOFRAN INJection) 4 mg Q4HP PRN IV NAUSEA OR VOMITING 09/20/20 17:45 09/20/20 18:45 DC Ondansetron HCl (ZOFRAN INJection) 4 mg Q4HP PRN IV NAUSEA OR VOMITING 10/11/20 10:40 10/31/20 07:58 DC 10/30/20 13:13 Ondansetron HCl (ZOFRAN INJection) 4 mg Q6HP PRN IV NAUSEA OR VOMITING 09/07/20 14:10 09/28/20 11:57 DC 09/25/20 17:09 Ondansetron HCl (Zofran Odt) 4 mg DAILY PO 09/08/20 09:00 09/07/20 14:10 DC Ondansetron HCl (Zofran Odt) 4 mg Q6HP PRN PO NAUSEA OR VOMITING 09/28/20 11:55 10/11/20 10:37 DC 10/05/20 11:15 Ondansetron HCl (Zofran) 4 mg Q4HP PRN PO NAUSEA OR VOMITING 10/31/20 08:00 11/20/20 06:25 Oxybutynin Chloride (Ditropan Xl) 5 mg DAILY PO 10/03/20 15:10 10/04/20 11:02 DC 10/04/20 08:32 Oxybutynin Chloride (Ditropan Xl) 10 mg DAILY PO 09/09/20 17:55 09/14/20 08:48 DC 09/14/20 08:45 Oxycodone HCl (Roxicodone, Oxyir) 5 mg ASDIRECTED PRN PO PAIN LEVEL 1-4 09/15/20 19:00 09/15/20 20:30 DC Oxycodone HCl (Roxicodone, Oxyir) 5 mg ASDIRECTED PRN PO PAIN LEVEL 1-4 09/20/20 17:10 09/20/20 18:10 DC 09/20/20 17:18 Oxycodone HCl (Roxicodone, Oxyir) 5 mg ASDIRECTED PRN PO PAIN LEVEL 1-4 09/20/20 17:45 09/20/20 18:45 DC Oxycodone HCl (Roxicodone, Oxyir) 5 mg Q6HP PRN PO PAIN 10/12/20 15:40 10/19/20 14:15 DC 10/19/20 09:54 Oxycodone HCl (Roxicodone, Oxyir) 10 mg Q6HP PRN PO PAIN 10/19/20 14:15 11/01/20 12:27 DC 11/01/20 09:41 Oxycodone HCl (Roxicodone, Oxyir) 10 mg Q6HP PRN PO SEVERE PAIN (PS 8-10) 11/01/20 18:50 11/03/20 10:50 DC 11/03/20 09:10 Oxycodone HCl (Roxicodone, Oxyir) 15 mg Q12HP PRN PO SEVERE PAIN (PS 8-10) 11/22/20 18:00 11/29/20 04:27 Oxycodone HCl (Roxicodone, Oxyir) 15 mg Q6HP PRN PO SEVERE PAIN (PS 8-10) 11/03/20 10:50 11/22/20 17:34 DC 11/21/20 20:15 Pantoprazole Sodium (Protonix) 40 mg DAILY PO 10/11/20 09:25 11/01/20 12:33 DC 11/01/20 09:45 Pantoprazole Sodium (Protonix) 40 mg DAILY PO 11/02/20 09:00 11/29/20 09:27 Piperacillin Sod/ Tazobactam Sod 3.375 gm/Dextrose 50 ml @ 50 mls/hr Q6H IV 09/10/20 14:00 09/12/20 11:09 DC 09/12/20 08:25 Piperacillin Sod/ Tazobactam Sod 3.375 gm/Dextrose 50 ml @ 50 mls/hr Q6H IV 09/07/20 16:00 09/10/20 13:24 DC 09/09/20 16:21 Piperacillin Sod/ Tazobactam Sod 3.375 gm/Dextrose 50 ml @ 50 mls/hr Q6H IV 10/01/20 22:00 11/06/20 16:08 DC 11/06/20 09:46 Polyethylene Glycol (Miralax) 1 pkt BID PO 10/06/20 21:00 10/12/20 15:52 DC 10/09/20 21:24 Polyethylene Glycol (Miralax) 1 pkt DAILY PO 10/02/20 21:50 10/06/20 13:41 DC 10/06/20 08:07 Polyethylene Glycol (Miralax) 1 pkt DAILY PRN PO CONSTIPATION 09/07/20 13:55 10/02/20 21:50 DC 10/02/20 09:24 Potassium Chloride (Micro-K Extencaps) 20 meq BID PO 10/21/20 09:00 11/01/20 12:33 DC 11/01/20 09:44 Potassium Chloride (Micro-K Extencaps) 20 meq BID PO 11/01/20 21:00 11/17/20 07:50 DC 11/16/20 21:52 Potassium Chloride (Micro-K Extencaps) 30 meq Q4H PO 09/09/20 09:00 09/09/20 13:01 DC 09/09/20 13:45 Potassium Chloride (Micro-K Extencaps) 40 meq BID PO 11/17/20 09:00 11/23/20 11:17 DC 11/23/20 08:56 Potassium Chloride (Micro-K Extencaps) 40 meq DAILY PO 11/24/20 09:00 11/29/20 09:30 Pregabalin (Lyrica) 100 mg BID PO 11/02/20 21:00 11/29/20 09:30 Scopolamine (Scopolamine) 1 mg Q3DP PRN TOP EXCESSIVE SECRETIONS 11/01/20 12:30 11/01/20 18:47 DC Senna (Senokot) 1 tab QHS PO 09/07/20 21:00 10/02/20 21:50 DC 10/02/20 20:41 Senna/Docusate Sodium (Senokot S) 2 tab QHS PO 10/03/20 21:00 11/28/20 20:47 Sodium Hypochlorite (Dakin'S Solution) remove wound vac, pl... DAILYPRN PRN TOP WOUND CARE 10/01/20 17:30 10/02/20 19:56 DC 10/01/20 20:16 Sodium Chloride 1,000 ml @ 15 mls/hr Q24H IV 10/22/20 07:35 10/22/20 19:36 DC 10/22/20 10:29 Sodium Chloride 1,000 ml @ 85 mls/hr [id number] IV 09/10/20 14:40 09/11/20 09:38 DC 09/11/20 03:50 Sodium Chloride 1,000 ml @ 100 mls/hr Q10H IV 09/07/20 13:55 09/08/20 11:08 DC 09/08/20 05:36 Sodium Chloride (Kurten Nasal Randall) 2 spray Q2HP PRN NA NASAL DRYNESS 09/18/20 11:20 11/15/20 16:29 DC Sodium Chloride (Saline Lock Flush) 10 ml ASDIRECTED PRN IV SEE LABEL COMMENTS 09/10/20 13:20 09/21/20 15:43 DC 09/19/20 20:43 Sodium Chloride (Saline Lock Flush) 10 ml ASDIRECTED PRN IV SEE LABEL COMMENTS 09/21/20 16:00 09/28/20 11:57 DC 09/27/20 09:37 Sodium Chloride (Saline Lock Flush) 10 ml ASDIRECTED PRN IV SEE LABEL COMMENTS 10/02/20 19:00 11/21/20 10:41 Sodium Chloride (Saline Lock Flush) 10 ml PICC IV 09/10/20 18:00 09/21/20 15:43 DC 09/21/20 05:52 Sodium Chloride (Saline Lock Flush) 10 ml PICC IV 09/21/20 18:00 09/28/20 11:57 DC 09/28/20 05:41 Sodium Chloride (Saline Lock Flush) 10 ml PICC IV 10/03/20 06:00 11/29/20 05:16 Solifenacin (Vesicare) 5 mg DAILY PO 10/05/20 09:00 10/05/20 11:40 DC 10/05/20 08:50 Solifenacin (Vesicare) 10 mg DAILY PO 09/15/20 09:00 09/20/20 18:00 DC 09/20/20 09:18 Solifenacin (Vesicare) 10 mg DAILY PO 10/06/20 09:00 11/01/20 12:33 DC 11/01/20 09:45 Solifenacin (Vesicare) 10 mg DAILY PO 11/02/20 09:00 11/29/20 09:31 Sucralfate (Carafate Suspension) 1 gm ACHS PO 10/27/20 12:00 11/29/20 12:32 Tizanidine HCl (Zanaflex) 4 mg BIDP PRN PO spasms 09/24/20 07:30 10/03/20 15:49 DC 10/03/20 08:33 Tizanidine HCl (Zanaflex) 4 mg Q8HP PRN PO SPASMS 09/22/20 09:00 09/22/20 15:18 DC 09/22/20 10:41 Tizanidine HCl (Zanaflex) 4 mg QHS PO 09/23/20 21:00 09/24/20 07:29 DC 09/23/20 21:05 Tizanidine HCl (Zanaflex) 4 mg QHS PRN PO MUSCLE SPASMS 09/07/20 13:55 09/22/20 08:15 DC 09/21/20 20:34 Torsemide (Demadex) 20 mg BID@,17 PO 11/14/20 17:00 11/16/20 11:51 DC 11/16/20 09:59 Torsemide (Demadex) 20 mg BID@,17 PO 11/21/20 17:00 11/22/20 11:49 DC 11/22/20 08:05 Torsemide (Demadex) 40 mg BID@,17 PO 11/22/20 17:00 11/29/20 09:29 Vancomycin HCl 750 mg/IV Miscellaneous Supplies 1 each/ Sodium Chloride 275 ml @ 275 mls/hr Q12H IV 09/11/20 04:00 09/11/20 15:39 DC 09/11/20 03:48 Vancomycin HCl 1000 mg/IV Miscellaneous Supplies 1 each/ Sodium Chloride 270 ml @ 270 mls/hr Q12H IV 09/08/20 10:25 09/08/20 11:05 DC Vancomycin HCl 1000 mg/IV Miscellaneous Supplies 1 each/ Sodium Chloride 270 ml @ 270 mls/hr Q12H IV 09/09/20 00:00 09/09/20 13:43 DC 09/08/20 23:33 Vancomycin HCl 1000 mg/IV Miscellaneous Supplies 1 each/ Sodium Chloride 270 ml @ 270 mls/hr Q12H IV 09/09/20 14:00 09/10/20 15:43 DC 09/09/20 13:45 Vancomycin HCl 1000 mg/IV Miscellaneous Supplies 1 each/ Sodium Chloride 270 ml @ 270 mls/hr Q12H IV 09/11/20 16:00 09/12/20 10:32 DC 09/12/20 03:57 Vancomycin HCl 1000 mg/IV Miscellaneous Supplies 1 each/ Sodium Chloride 270 ml @ 270 mls/hr Q12H IV 11/07/20 06:00 11/12/20 13:49 DC 11/12/20 05:57 Vancomycin HCl 1000 mg/IV Miscellaneous Supplies 1 each/ Sodium Chloride 270 ml @ 270 mls/hr Q1H IV 11/06/20 18:00 11/06/20 19:59 DC 11/06/20 22:03 Allergies Coded Allergies: oxybutynin (Verified Allergy, Intermediate, rash, 10/06/20) Objective Physical Examination Examination GENERAL APPEARANCE:Patient seen, laying in bed, awake, alert, and oriented. Comfortable, in no acute distress. SKIN: Warm and moist. Sacral wound stage IV: [id number], clean granulating tissue. Left ischium wound stage IV: 8x4.5x7cm clean granulating tissue. Right ischial wound stage III: 6x2.5x0.3 clean granulating tissue. No odor. LUNGS: Clear to auscultation bilaterally. No wheezing appreciated. HEART: No chest wall abnormalities. ABDOMEN: Abdomen is soft, non-tender, non-distended. Colostomy in place. Vital Signs Vital Signs Date Time Temp Pulse Resp B/P (MAP) Pulse Ox O2 Delivery O2 Flow Rate FiO2 11/29/20 09:30 5.0 28 11/29/20 06:00 98.7 85 18 102/58 (73) 97 Trach Collar I&Os I&O- Last 24 Hours up to 6 AM 11/29/20 06:00 Intake Total 1580 ml Output Total 1650 ml Balance -70 ml Laboratory Data Labs 24H Laboratory Tests 2 11/28/20 17:12: Bedside Glucose (Misc Panel) 128H 11/28/20 20:34: Bedside Glucose (Misc Panel) 129H 11/29/20 06:05: Bedside Glucose (Misc Panel) 127H 11/29/20 11:35: Bedside Glucose (Misc Panel) 126H Impression Pressure wounds Sacrum Stage IV, Left ischium Stage IV, Right ischium Stage III wounds. All wounds are improving in size, granulation. Patient is planning to leave hospital tomorrow. Break through urine leaks are still persist. Continue with Hydrofera blue, packing on all wounds. Findings discussed with patient. F/up in wound clinic after discharge. Plan / VTE VTE Prophylaxis Ordered?: Yes MCKENZIE MULLEN DO Nov 29, 2020 13:25
[2020-11-29] MEDS: SENOKOT S TAB PO SCH (21:33)
[2020-11-29] MEDS: ATORVASTATIN 20 MG TAB PO SCH (21:35)
[2020-11-29] MEDS: hydrOXYzine 25 MG TAB PO PRN (21:36)
[2020-11-29] MEDS: **NOTE PATIENT COMMENT** MISC XX SCH (21:40)
[2020-11-29 23:37] VITALS: O2SAT 94
[2020-11-30] MEDS: LEVOTHYROXINE 50MCG TABLET (0.05MG) PO SCH (05:59)
[2020-11-30] MEDS: SODIUM CHLORIDE 0.9% INJ 10 ML SYR IV SCH (05:59)
[2020-11-30 06:00] VITALS: BP 107/54
[2020-11-30] MEDS: ANALGESIC BALM CRM 3OZ TOP SCH ×2 (06:00→09:49)
[2020-11-30] MEDS: oxyCODONE 5MG TAB PO PRN (06:44)
[2020-11-30] MEDS: ALBUTEROL SULFATE 2.5 MG/0.5 ML INH NEB SOLN NEB SCH (07:10)
[2020-11-30] MEDS: SUCRALFATE SUSP 1GM/10ML UD PO SCH ×2 (09:41→12:52)
[2020-11-30] MEDS: LACTULOSE 20 GM/30 ML SYRUP UD PO SCH (09:41)
[2020-11-30] MEDS: diazePAM 2 MG TAB PO SCH (09:42)
[2020-11-30] MEDS: PANTOPRAZOLE 40MG TAB (PROTONIX) PO SCH (09:42)
[2020-11-30] MEDS: MAGNESIUM OXIDE 400MG TAB (MAG-OX) PO SCH (09:43)
[2020-11-30] MEDS: FOLIC ACID 1 MG TAB PO SCH (09:43)
[2020-11-30] MEDS: ASPIRIN 81MG ENTERIC TABLET PO SCH (09:43)
[2020-11-30] MEDS: SOLIFENACIN 5 MG TAB PO SCH (09:44)
[2020-11-30] MEDS: CYANOCOBALAMIN 250 MCG TABLET PO SCH (09:44)
[2020-11-30] MEDS: TORSEMIDE 20 MG TAB PO SCH (09:45)
[2020-11-30] MEDS: PREGABALIN 100 MG CAP (LYRICA) PO SCH (09:45)
[2020-11-30] MEDS: BACLOFEN 5MG PER 1/2 TABLET PO SCH (09:45)
[2020-11-30] MEDS: POTASSIUM CHLORIDE 10MEQ SR TABLET PO SCH (09:46)
[2020-11-30] MEDS: HumaLOG INSULIN (NovoLOG) PER UNIT SC SCH ×2 (09:47→12:53)
[2020-11-30] MEDS: LIDOCAINE 5% (LIDODERM) PATCH TD SCH (09:48)
[2020-11-30] MEDS: NYSTATIN 100,000 UNITS/GM TOPICAL PWD 15 GM TOP SCH (09:48)
[2020-11-30] MEDS ORDERED: GLUC1TES2 XX (11:03)
[2020-11-30] MEDS ORDERED: LANC30MI XX (11:03)
[2020-11-30] MEDS ORDERED: ALCOPAD25 TOP (11:03)
[2020-11-30] MEDS ORDERED: OXYC-517 PO (11:03)
[2020-11-30] MEDS ORDERED: INSU1MIS20 SC (11:03)
[2020-11-30] MEDS ORDERED: BLOOKIT21 XX (11:03)
[2020-11-30] MEDS ORDERED: NYST10006 TOP (11:16)
[2020-11-30] MEDS ORDERED: MIRA3350 PO (11:16)
[2020-11-30] MEDS ORDERED: LACT20EL PO (11:16)
[2020-11-30] MEDS ORDERED: DIAZ2TAB PO (11:16)
[2020-11-30] MEDS ORDERED: BACL10TA2 PO (11:16)
[2020-11-30] MEDS ORDERED: ASPI81TA26 PO (11:16)
[2020-11-30] MEDS ORDERED: PREG100CA PO (11:16)
[2020-11-30] MEDS ORDERED: SENN-80 PO (11:16)
[2020-11-30] MEDS ORDERED: POTA-136 PO (11:16)
[2020-11-30] MEDS ORDERED: LEVO50TA45 PO (11:16)
[2020-11-30] MEDS ORDERED: SOLI5TAB PO (11:16)
[2020-11-30] MEDS ORDERED: PANT40TA29 PO (11:16)
[2020-11-30] MEDS ORDERED: TORS20TA2 PO (11:16)
[2020-11-30] MEDS ORDERED: METO10TA2 PO (11:16)
[2020-11-30] MEDS ORDERED: SUCR1ORA PO (11:16)
[2020-11-30] MEDS ORDERED: COLA100C5 PO (11:16)
[2020-11-30] MEDS ORDERED: VITA250T7 PO (11:16)
[2020-11-30] MEDS ORDERED: MAGN400T2 PO (11:16)
[2020-11-30] MEDS ORDERED: ATOR40TA75 PO (11:16)
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
== END 2020-11-30 15:00 | disposition left against medical advice (07) | DRG 673 ==
LOC: EDBD 10:07 → M ED 10:07 → M ED INP 12:48 → ENRESERV 16:35 → M MSPAV 17:05 → UNDODISIN 09-28 09:45
PROVIDERS: ADMIT Internal Medicine; ATTEND Family Medicine
PROC: 02HV33Z Insertion of Infusion Device into Superior Vena Cava, Percutaneous Approach (ICD-10-PCS; 2020-09-10)
PROC: 30233N1 Transfusion of Nonautologous Red Blood Cells into Peripheral Vein, Percutaneous Approach (ICD-10-PCS; 2020-09-12)
PROC: 0KDG0ZZ Extraction of Left Trunk Muscle, Open Approach (ICD-10-PCS; principal; 2020-09-13)
PROC: 0JBM0ZZ Excision of Left Upper Leg Subcutaneous Tissue and Fascia, Open Approach (ICD-10-PCS; 2020-09-13)
PROC: 0JBL0ZZ Excision of Right Upper Leg Subcutaneous Tissue and Fascia, Open Approach (ICD-10-PCS; 2020-09-13)
PROC: 0JB70ZZ Excision of Back Subcutaneous Tissue and Fascia, Open Approach (ICD-10-PCS; 2020-09-13)
PROC: 0T9B70Z Drainage of Bladder with Drainage Device, Via Natural or Artificial Opening (ICD-10-PCS; 2020-09-15)
PROC: 0TJB8ZZ Inspection of Bladder, Via Natural or Artificial Opening Endoscopic (ICD-10-PCS; 2020-09-15)
PROC: 3E0K8GC Introduction of Other Therapeutic Substance into Genitourinary Tract, Via Natural or Artificial Opening Endoscopic (ICD-10-PCS; 2020-09-20)
PROC: 02HV33Z Insertion of Infusion Device into Superior Vena Cava, Percutaneous Approach (ICD-10-PCS; 2020-10-02)
DX: T83.518A Infection and inflammatory reaction due to other urinary catheter, initial encounter (principal); G82.50 Quadriplegia, unspecified; I50.33 Acute on chronic diastolic (congestive) heart failure; A41.9 Sepsis, unspecified organism; L89.154 Pressure ulcer of sacral region, stage 4; J15.6 Pneumonia due to other Gram-negative bacteria; L89.224 Pressure ulcer of left hip, stage 4; L89.213 Pressure ulcer of right hip, stage 3; J96.11 Chronic respiratory failure with hypoxia; J96.12 Chronic respiratory failure with hypercapnia; M86.652 Other chronic osteomyelitis, left thigh; Z68.42 Body mass index [BMI] 45.0-49.9, adult; N39.0 Urinary tract infection, site not specified; J98.11 Atelectasis; Z93.0 Tracheostomy status; Z66 Do not resuscitate; I11.0 Hypertensive heart disease with heart failure; N31.9 Neuromuscular dysfunction of bladder, unspecified; E66.01 Morbid (severe) obesity due to excess calories; Z93.1 Gastrostomy status; K52.9 Noninfective gastroenteritis and colitis, unspecified; Z93.3 Colostomy status; K59.09 Other constipation; D50.9 Iron deficiency anemia, unspecified; E11.9 Type 2 diabetes mellitus without complications; E03.9 Hypothyroidism, unspecified; G43.909 Migraine, unspecified, not intractable, without status migrainosus; M06.9 Rheumatoid arthritis, unspecified; Z86.14 Personal history of Methicillin resistant Staphylococcus aureus infection; Z79.891 Long term (current) use of opiate analgesic; Z90.49 Acquired absence of other specified parts of digestive tract; Z74.01 Bed confinement status; Z79.82 Long term (current) use of aspirin; Z79.899 Other long term (current) drug therapy; K21.9 Gastro-esophageal reflux disease without esophagitis; Y84.6 Urinary catheterization as the cause of abnormal reaction of the patient, or of later complication, without mention of misadventure at the time of the procedure; E87.6 Hypokalemia; R32 Unspecified urinary incontinence; N32.81 Overactive bladder; B96.1 Klebsiella pneumoniae [K. pneumoniae] as the cause of diseases classified elsewhere; M62.830 Muscle spasm of back; R60.0 Localized edema; B96.89 Other specified bacterial agents as the cause of diseases classified elsewhere; N32.89 Other specified disorders of bladder; S22.042 Unstable burst fracture of fourth thoracic vertebra; Y95 Nosocomial condition; L27.0 Generalized skin eruption due to drugs and medicaments taken internally; T44.3X5A Adverse effect of other parasympatholytics [anticholinergics and antimuscarinics] and spasmolytics, initial encounter; M75.32 Calcific tendinitis of left shoulder

== ENCOUNTER 2020-12-17 19:29 | Inpatient (IN) | payer MEDICARE, OTHER ==
[~2020-12-17] VITALS: Ht 172.7 cm; Wt 127.0 kg
[~2020-12-17 19:29] MED LIST changes: +AKWASOL OU; +ALCOPAD25 TOP; +BACL10TA2 PO; +BLOOKIT21 XX; +DIAZ2TAB PO; +GLUC1TES2 XX; +INSU1MIS20 SC; +LACT20EL PO; +LANC30MI XX; +MAGN400T2 PO; +METO10TA2 PO; +ONDA4TAB6 PO; +OXYC-517 PO; +PANT40TA29 PO; +POTA-136 PO; +PREG100CA PO; +SENN-80 PO; +SOLI5TAB PO; +SUCR1ORA PO; +TIZA10TA PO; -TIZA4TAB4 PO; +TORS20TA2 PO
[2020-12-17 20:47] LABS: VENOUS BASE EXCESS 7.9 (-2.0-2.0); VENOUS HCO3 34.9 MEQ/L (23.0-27.0); VENOUS O2 SATURATION 74.9 % (60.0-80.0); VENOUS PARTIAL PRESSURE CO2 60.7 mmHg (38.0-50.0); VENOUS PARTIAL PRESSURE O2 45.1 mmHg (30.0-50.0); VENOUS PH 7.377 UNITS (7.330-7.430); VENOUS STANDARD HCO3 31.2 MEQ/L; VENOUS TOTAL CO2 36.7 MEQ/L (24.0-28.0)
[2020-12-17 20:55] LABS: BASO # 0.1 10^3/uL (0.0-0.2); BASO % 0.6 % (0.0-1.0); EOS # 0.5 10^3/uL (0.0-0.5); EOS % 2.7 % (0.0-3.0); HEMATOCRIT 35.5 % (36.0-47.0); HEMOGLOBIN 10.7 g/dl (12.0-15.5); LYMPH # 1.7 10^3/uL (1.5-5.0); MEAN CORPUSCULAR HEMOGLOBIN 25.8 pg (27.0-33.0); MEAN CORPUSCULAR HGB CONC 30.1 g/dl (32.0-36.5); MEAN CORPUSCULAR VOLUME 85.5 fl (80.0-96.0); MONO # 1.1 10^3/uL (0.0-0.8); MONO % 6.4 % (2.0-8.0); NEUTROPHILS # 13.7 10^3/uL (1.5-8.5); NEUTROPHILS % 79.8 % (36.0-66.0); PLATELET COUNT, AUTOMATED 631 10^3/uL (150-450); RED BLOOD COUNT 4.15 10^6/uL (4.00-5.40); WHITE BLOOD COUNT 17.2 10^3/uL (4.0-10.0)
[2020-12-17] MEDS ORDERED: NS 1,000 ML IV ONE (21:00)
[2020-12-17] MEDS ORDERED: VANCOMYCIN HCL 2,000 MG in D5W 500 ML IV ONE (21:00)
[2020-12-17 21:22] LABS: ALBUMIN 1.9 GM/DL (3.2-5.2); ALT/SGPT 13 U/L (12-78); BILIRUBIN,DIRECT < 0.1 MG/DL (0.0-0.2); BILIRUBIN,TOTAL 0.2 MG/DL (0.2-1.0); BLOOD UREA NITROGEN 15 MG/DL (7-18); CALCIUM LEVEL 8.6 MG/DL (8.8-10.2); CARBON DIOXIDE LEVEL 35 MEQ/L (21-32); CHLORIDE LEVEL 97 MEQ/L (98-107); CK-MB VALUE MASS < 1.0 NG/ML (<3.6); CPK CREATINE PHOSPHOKINASE 26 U/L (26-192); CREATININE FOR GFR 0.54 MG/DL (0.55-1.30); GLOMERULAR FILTRATION RATE > 60.0 (>45); GLUCOSE, FASTING 105 MG/DL (70-100); MB/CK RELATIVE INDEX 3.85 (< OR =4); NT-PRO BNP 227 PG/ML (<125); POTASSIUM SERUM 4.2 MEQ/L (3.5-5.1); SODIUM LEVEL 139 MEQ/L (136-145); THYROXINE (T4) 9.1 UG/DL (4.5-12.0); TOTAL PROTEIN 7.2 GM/DL (6.4-8.2); TROPONIN I < 0.02 NG/ML (< 0.10)
[2020-12-17] MEDS ORDERED: VANCOMYCIN HCL 1,000 MG, VIAL MATE ADAPTER 1 EACH in NS 250 ML IV ONE ×2 (21:30→22:30)
[2020-12-17 21:46] LABS: APPEARANCE, URINE TURBID (CLEAR); BACTERIA, URINE AUTO 3+ (NEGATIVE); BILIRUBIN, URINE AUTO NEGATIVE (NEGATIVE); BLOOD, URINE BLOOD 2+ (NEGATIVE); COLOR, URINE YELLOW (YELLOW); GLUCOSE, URINE (UA) AUTO NEGATIVE (NEGATIVE); KETONE, URINE AUTO TRACE mg/dL (NEGATIVE); LEUKOCYTE ESTERASE, URINE AUTO 3+ (NEGATIVE); MUCUS, URINE SMALL (NEGATIVE); NITRITE, URINE AUTO POSITIVE (NEGATIVE); PROTEIN, URINE AUTO 2+ mg/dL (NEGATIVE); RBC, URINE AUTO 78 /HPF (0-3); SPECIFIC GRAVITY URINE AUTO 1.018 (1.002-1.035); SQUAMOUS EPITHELIAL CELL UR AU 2 /HPF (0-6); UROBILINOGEN, URINE AUTO 0.2 mg/dL (0.0-2.0); WBC, URINE AUTO TNTC /HPF (0-3)
[2020-12-17] MEDS ORDERED: NS 2,000 ML in IV 1 EA IV ONE (22:30)
[2020-12-17] MEDS ORDERED: ISOVUE-370 76% 100ML VIAL As Ordered ONE (22:39)
[2020-12-17 22:56] LABS: RSV AMPLIFICATION NEGATIVE (NEGATIVE)
[2020-12-17] MEDS ORDERED: MOM 30ML SUSPENSION UDC PO PRN (23:05)
[2020-12-17] MEDS ORDERED: MAALOX 30 ML SUSP *UDC PO PRN (23:05)
[2020-12-17] MEDS ORDERED: FOLI1TAB11 PO (23:24)
[2020-12-17] MEDS ORDERED: NYST1POW9 TOP (23:24)
[2020-12-17] MEDS ORDERED: MAGN400T2 PO (23:24)
[2020-12-17] MEDS ORDERED: VITA250T7 PO (23:24)
[2020-12-17] MEDS ORDERED: POLY1.4S OU (23:24)
[2020-12-17] MEDS ORDERED: DULO1CAP6 PO (23:24)
[2020-12-17] MEDS ORDERED: PANT-23 PO (23:24)
[2020-12-17] MEDS ORDERED: POTA10TA67 PO (23:24)
[2020-12-17] MEDS ORDERED: METO10TA2 PO (23:24)
[2020-12-17] MEDS ORDERED: BACL10TA2 PO (23:24)
[2020-12-17] MEDS ORDERED: FERR32TA PO (23:24)
[2020-12-17] MEDS ORDERED: SYNT50TA PO (23:24)
[2020-12-17] MEDS ORDERED: DIAZ2TAB PO (23:24)
[2020-12-17] MEDS ORDERED: ATOR40TA75 PO (23:24)
[2020-12-17] MEDS ORDERED: OXYC-517 PO (23:24)
[2020-12-17] MEDS ORDERED: ASPI-161 PO (23:24)
[2020-12-17] MEDS ORDERED: DOCU100C16 PO (23:24)
[2020-12-17] MEDS ORDERED: LACT20EL PO (23:24)
[2020-12-17] MEDS ORDERED: MORPHINE 2 MG/ML 1ML VIAL (J2270) IV PRN (23:25)
[2020-12-17 23:26] LABS: FERRITIN 187 NG/ML (8-252); IRON (FE) 27 UG/DL (50-170); PERCENT SATURATION 18.9 % (13.2-45.0); TOTAL IRON BINDING CAPACITY 143 UG/DL (250-450)
[2020-12-17] MEDS ORDERED: SENN8.6T28 PO (23:31)
[2020-12-17] MEDS ORDERED: PREG100CA PO (23:31)
[2020-12-17] MEDS ORDERED: VESI5TAB2 PO (23:31)
[2020-12-17] MEDS ORDERED: SUCR1SS PO (23:31)
[2020-12-17] MEDS ORDERED: MIRA1POW3 PO (23:31)
[2020-12-17] MEDS ORDERED: TORS20TA2 PO (23:31)
[2020-12-17 23:34] LABS: VITAMIN B12 LEVEL 833 PG/ML (247-911)
[2020-12-17 23:35] LABS: FOLATE 10.3 NG/ML (>5.4)
[2020-12-17] MEDS ORDERED: HOME MED LIST COMPLETE! XX SCH (23:35)
[2020-12-18] MEDS: PIPERACILLIN/TAZOBACTAM SOD 4.5 GM in D5W MINI-BAG PLUS 50 ML IV SCH ×2 (01:25→08:33)
[2020-12-18] MEDS ORDERED: METOCLOPRAMIDE INJ 10MG/2ML VIAL (J2765 PER 1) IV PRN (01:40)
[2020-12-18] MEDS ORDERED: diazePAM 2 MG TAB PO PRN (01:40)
[2020-12-18] MEDS: LR 1,000 ML IV SCH ×2 (03:10→11:38)
[2020-12-18] MEDS ORDERED: NOREPINEPHRINE BITARTRATE 16 MG in D5W 484 ML IV SCH (03:15)
[2020-12-18] MEDS ORDERED: METOCLOPRAMIDE 10 MG TAB PO PRN (05:35)
[2020-12-18] MEDS ORDERED: POLYVINYL ALCOHOL OPHTH SOLN 15 ML(LIQUITEARS) OU PRN (05:35)
[2020-12-18] MEDS ORDERED: SENNA 8.6 MG TAB (SENOKOT) PO PRN (05:35)
[2020-12-18] MEDS: ACETAMINOPHEN TAB 650MG DOSE (2X325MG) PO PRN (05:45)
[2020-12-18] MEDS ORDERED: GLUCAGON INJ 1MG VIAL SC PRN (05:50)
[2020-12-18] MEDS ORDERED: DEXTROSE 50% 50 ML SYRINGE IV PRN (05:50)
[2020-12-18] MEDS ORDERED: GLUCOSE 4GM CHEW TABLET PO PRN (05:50)
[2020-12-18] MEDS ORDERED: HEPARIN SOD (PORCINE) 5000UNITS/ML 1ML VIAL/SYRINGE SC SCH (06:00)
[2020-12-18] MEDS: LEVOTHYROXINE 50MCG TABLET (0.05MG) PO SCH (06:22)
[2020-12-18] MEDS ORDERED: PILL CUTTER 1 EACH XX PRN (06:35)
[2020-12-18] MEDS ORDERED: MORPHINE 2 MG/ML 1ML VIAL (J2270) IV ONE (06:35)
[2020-12-18 06:44] LABS: HEMATOCRIT 32.1 % (36.0-47.0); HEMOGLOBIN 9.6 g/dl (12.0-15.5); MEAN CORPUSCULAR HEMOGLOBIN 25.7 pg (27.0-33.0); MEAN CORPUSCULAR HGB CONC 29.9 g/dl (32.0-36.5); MEAN CORPUSCULAR VOLUME 85.8 fl (80.0-96.0); RED BLOOD COUNT 3.74 10^6/uL (4.00-5.40); WHITE BLOOD COUNT 22.7 10^3/uL (4.0-10.0)
[2020-12-18 06:45] LABS: PLATELET COUNT, AUTOMATED 528 10^3/uL (150-450)
[2020-12-18 07:14] LABS: BLOOD UREA NITROGEN 13 MG/DL (7-18); CARBON DIOXIDE LEVEL 32 MEQ/L (21-32); CHLORIDE LEVEL 103 MEQ/L (98-107); CREATININE FOR GFR 0.42 MG/DL (0.55-1.30); GLOMERULAR FILTRATION RATE > 60.0 (>45); GLUCOSE, FASTING 132 MG/DL (70-100); MAGNESIUM LEVEL 2.3 MG/DL (1.8-2.4); POTASSIUM SERUM 3.6 MEQ/L (3.5-5.1); SODIUM LEVEL 141 MEQ/L (136-145)
[2020-12-18] MEDS: HumaLOG INSULIN (NovoLOG) PER UNIT SC SCH ×4 (08:10→21:00)
[2020-12-18] MEDS: LACTULOSE 20 GM/30 ML SYRUP UD PO SCH (08:34)
[2020-12-18] MEDS: ENOXAPARIN 40MG/0.4ML SYRINGE (J1650 PER 10MG) SC SCH (08:34)
[2020-12-18] MEDS: PANTOPRAZOLE 40MG TAB (PROTONIX) PO SCH ×3 (08:35→11:34)
[2020-12-18] MEDS: ASPIRIN 81MG ENTERIC TABLET PO SCH (08:35)
[2020-12-18] MEDS: CYANOCOBALAMIN 250 MCG TABLET PO SCH ×2 (08:35→09:13)
[2020-12-18] MEDS: SOLIFENACIN 5 MG TAB PO SCH ×2 (08:35→09:13)
[2020-12-18] MEDS: BACLOFEN 5MG PER 1/2 TABLET PO SCH ×3 (08:35→21:39)
[2020-12-18] MEDS: MAGNESIUM OXIDE 400MG TAB (MAG-OX) PO SCH ×4 (08:35→21:40)
[2020-12-18] MEDS: NYSTATIN 100,000 UNITS/GM TOPICAL PWD 15 GM TOP SCH ×2 (08:35→21:46)
[2020-12-18] MEDS: FOLIC ACID 1 MG TAB PO SCH ×3 (08:37→11:34)
[2020-12-18] MEDS: DOCUSATE SODIUM 100MG CAPSULE PO SCH ×2 (08:37→21:39)
[2020-12-18] MEDS: POTASSIUM CHLORIDE 10MEQ SR TABLET PO SCH ×3 (08:42→11:39)
[2020-12-18] MEDS: PREGABALIN 100 MG CAP (LYRICA) PO SCH ×2 (08:42→21:39)
[2020-12-18] MEDS: SUCRALFATE SUSP 1GM/10ML UD PO SCH ×4 (08:42→21:41)
[2020-12-18] MEDS ORDERED: LEVOTHYROXINE 100MCG (0.1MG) VIAL IV SCH (09:00)
[2020-12-18] MEDS: VANCOMYCIN HCL 1,000 MG, VIAL MATE ADAPTER 1 EACH in NS 250 ML IV SCH ×2 (11:33→23:06)
[2020-12-18] MEDS: oxyCODONE 5MG TAB PO PRN (11:35)
[2020-12-18 13:15] VITALS: BP 126/72
[2020-12-18] MEDS: MEROPENEM INJ 1 GM in IV 1 EA IV SCH ×2 (14:06→21:41)
[2020-12-18 16:00] VITALS: BP 121/59
[2020-12-18] MEDS: MORPHINE 2 MG/ML 1ML VIAL (J2270) IV PRN (18:19)
[2020-12-18 20:10] VITALS: BP 132/86
[2020-12-18] MEDS: ATORVASTATIN 20 MG TAB PO SCH (21:40)
[2020-12-18] MEDS: DULoxetine 30MG CAPSULE (CYMBALTA) PO SCH (21:40)
[2020-12-19 00:15] VITALS: BP 112/65
[2020-12-19] MEDS: LR 1,000 ML IV SCH ×3 (03:19→17:06)
[2020-12-19 04:25] VITALS: BP 102/57
[2020-12-19 05:59] LABS: HEMATOCRIT 30.2 % (36.0-47.0); HEMOGLOBIN 8.9 g/dl (12.0-15.5); MEAN CORPUSCULAR HEMOGLOBIN 25.6 pg (27.0-33.0); MEAN CORPUSCULAR HGB CONC 29.5 g/dl (32.0-36.5); PLATELET COUNT, AUTOMATED 479 10^3/uL (150-450); RED BLOOD COUNT 3.47 10^6/uL (4.00-5.40); WHITE BLOOD COUNT 12.8 10^3/uL (4.0-10.0)
[2020-12-19] MEDS: MEROPENEM INJ 1 GM in IV 1 EA IV SCH ×3 (06:13→21:36)
[2020-12-19] MEDS: LEVOTHYROXINE 50MCG TABLET (0.05MG) PO SCH (06:13)
[2020-12-19 06:27] LABS: BLOOD UREA NITROGEN 11 MG/DL (7-18); CALCIUM LEVEL 7.9 MG/DL (8.8-10.2); CARBON DIOXIDE LEVEL 33 MEQ/L (21-32); CHLORIDE LEVEL 107 MEQ/L (98-107); CREATININE FOR GFR 0.38 MG/DL (0.55-1.30); GLOMERULAR FILTRATION RATE > 60.0 (>45); GLUCOSE, FASTING 72 MG/DL (70-100); POTASSIUM SERUM 3.7 MEQ/L (3.5-5.1); SODIUM LEVEL 144 MEQ/L (136-145)
[2020-12-19] MEDS: MORPHINE 2 MG/ML 1ML VIAL (J2270) IV PRN ×2 (06:29→15:31)
[2020-12-19] MEDS: HumaLOG INSULIN (NovoLOG) PER UNIT SC SCH ×4 (07:30→21:00)
[2020-12-19 08:00] VITALS: BP 98/49
[2020-12-19] MEDS: PANTOPRAZOLE 40MG TAB (PROTONIX) PO SCH (09:00)
[2020-12-19] MEDS: DOCUSATE SODIUM 100MG CAPSULE PO SCH ×2 (09:00→21:00)
[2020-12-19] MEDS: SOLIFENACIN 5 MG TAB PO SCH (09:00)
[2020-12-19] MEDS: ASPIRIN 81MG ENTERIC TABLET PO SCH (09:00)
[2020-12-19] MEDS: POTASSIUM CHLORIDE 10MEQ SR TABLET PO SCH (09:00)
[2020-12-19] MEDS: BACLOFEN 5MG PER 1/2 TABLET PO SCH ×3 (09:00→21:35)
[2020-12-19] MEDS: LACTULOSE 20 GM/30 ML SYRUP UD PO SCH (09:00)
[2020-12-19] MEDS: MAGNESIUM OXIDE 400MG TAB (MAG-OX) PO SCH ×2 (10:01→21:35)
[2020-12-19] MEDS: SUCRALFATE SUSP 1GM/10ML UD PO SCH ×4 (10:01→21:35)
[2020-12-19] MEDS: FOLIC ACID 1 MG TAB PO SCH (10:01)
[2020-12-19] MEDS: ENOXAPARIN 40MG/0.4ML SYRINGE (J1650 PER 10MG) SC SCH (10:01)
[2020-12-19] MEDS: PREGABALIN 100 MG CAP (LYRICA) PO SCH ×2 (10:02→21:35)
[2020-12-19] MEDS: NYSTATIN 100,000 UNITS/GM TOPICAL PWD 15 GM TOP SCH ×2 (10:03→21:38)
[2020-12-19] MEDS: CYANOCOBALAMIN 250 MCG TABLET PO SCH (10:29)
[2020-12-19] MEDS: VANCOMYCIN HCL 1,000 MG, VIAL MATE ADAPTER 1 EACH in NS 250 ML IV SCH ×2 (10:29→23:14)
[2020-12-19] MEDS ORDERED: VARIBAR PUDDING 40% w/v 230ML TUBE As Ordered ONE (11:22)
[2020-12-19] MEDS ORDERED: VARIBAR NECTAR 40% w/v 240ML SUSP BTL As Ordered ONE (11:23)
[2020-12-19] MEDS ORDERED: BARIUM SULFATE 700 MG TABLET (E-Z-DISK) As Ordered ONE (11:23)
[2020-12-19] MEDS ORDERED: E-Z-PAQUE 96% w/w SUSP 176GM BTL As Ordered ONE (11:23)
[2020-12-19 12:00] VITALS: BP 94/48
[2020-12-19 16:00] VITALS: BP 115/55
[2020-12-19 20:00] VITALS: BP 128/72
[2020-12-19] MEDS: DULoxetine 30MG CAPSULE (CYMBALTA) PO SCH (21:35)
[2020-12-19] MEDS: ATORVASTATIN 20 MG TAB PO SCH (21:35)
[2020-12-20] VITALS: BP 92/48
[2020-12-20] MEDS: LR 1,000 ML IV SCH ×2 (00:52→13:24)
[2020-12-20 04:00] VITALS: BP 101/53
[2020-12-20 06:08] LABS: HEMATOCRIT 27.8 % (36.0-47.0); HEMOGLOBIN 8.3 g/dl (12.0-15.5); MEAN CORPUSCULAR HEMOGLOBIN 25.8 pg (27.0-33.0); MEAN CORPUSCULAR HGB CONC 29.9 g/dl (32.0-36.5); MEAN CORPUSCULAR VOLUME 86.3 fl (80.0-96.0); PLATELET COUNT, AUTOMATED 462 10^3/uL (150-450); RED BLOOD COUNT 3.22 10^6/uL (4.00-5.40); WHITE BLOOD COUNT 10.2 10^3/uL (4.0-10.0)
[2020-12-20] MEDS: MEROPENEM INJ 1 GM in IV 1 EA IV SCH ×3 (06:17→21:32)
[2020-12-20] MEDS: LEVOTHYROXINE 50MCG TABLET (0.05MG) PO SCH (06:17)
[2020-12-20 06:31] LABS: BLOOD UREA NITROGEN 9 MG/DL (7-18); CALCIUM LEVEL 7.3 MG/DL (8.8-10.2); CARBON DIOXIDE LEVEL 32 MEQ/L (21-32); CHLORIDE LEVEL 106 MEQ/L (98-107); CREATININE FOR GFR 0.33 MG/DL (0.55-1.30); GLOMERULAR FILTRATION RATE > 60.0 (>45); GLUCOSE, FASTING 72 MG/DL (70-100); POTASSIUM SERUM 3.5 MEQ/L (3.5-5.1); SODIUM LEVEL 141 MEQ/L (136-145)
[2020-12-20] MEDS: HumaLOG INSULIN (NovoLOG) PER UNIT SC SCH ×4 (07:30→21:00)
[2020-12-20 08:00] VITALS: BP 95/52
[2020-12-20] MEDS: POTASSIUM CHLORIDE 10MEQ SR TABLET PO SCH (08:42)
[2020-12-20] MEDS: LACTULOSE 20 GM/30 ML SYRUP UD PO SCH (09:00)
[2020-12-20] MEDS: SUCRALFATE SUSP 1GM/10ML UD PO SCH ×4 (09:22→21:31)
[2020-12-20] MEDS: CYANOCOBALAMIN 250 MCG TABLET PO SCH (09:23)
[2020-12-20] MEDS: SOLIFENACIN 5 MG TAB PO SCH (09:23)
[2020-12-20] MEDS: DOCUSATE SODIUM 100MG CAPSULE PO SCH ×2 (09:23→21:00)
[2020-12-20] MEDS: BACLOFEN 5MG PER 1/2 TABLET PO SCH ×3 (09:23→21:31)
[2020-12-20] MEDS: FOLIC ACID 1 MG TAB PO SCH (09:23)
[2020-12-20] MEDS: ENOXAPARIN 40MG/0.4ML SYRINGE (J1650 PER 10MG) SC SCH (09:23)
[2020-12-20] MEDS: MAGNESIUM OXIDE 400MG TAB (MAG-OX) PO SCH ×2 (09:23→21:31)
[2020-12-20] MEDS: ASPIRIN 81MG ENTERIC TABLET PO SCH (09:23)
[2020-12-20] MEDS: PREGABALIN 100 MG CAP (LYRICA) PO SCH ×2 (09:23→21:31)
[2020-12-20] MEDS: PANTOPRAZOLE 40MG TAB (PROTONIX) PO SCH (09:24)
[2020-12-20] MEDS: KCL 10MEQ/100ML SWI (KRUN) 10 MEQ in IV 1 EA IV SCH ×4 (09:25→12:00)
[2020-12-20] MEDS: NYSTATIN 100,000 UNITS/GM TOPICAL PWD 15 GM TOP SCH ×2 (09:25→21:32)
[2020-12-20 12:00] VITALS: BP 97/54
[2020-12-20] MEDS: VANCOMYCIN HCL 750 MG, VIAL MATE ADAPTER 1 EACH in NS 250 ML IV SCH (13:24)
[2020-12-20 14:09] LABS: CHLAMYDIA PNEUMONIAE IgG <1:16 (Neg:<1:16); CHLAMYDIA PNEUMONIAE IgM <1:10 (Neg:<1:10); LEGIONELLA ANTIGEN URINE Negative (Negative); MYCOPLASMA PNEUMONIAE IgG 821 U/mL (0-99); MYCOPLASMA PNEUMONIAE IgM <770 U/mL (0-769)
[2020-12-20] MEDS ORDERED: LIDOCAINE 1% MDV 20ML VIAL As Ordered ONE (14:49)
[2020-12-20] MEDS ORDERED: SODIUM CHLORIDE 0.9% INJ 10 ML SYR IV PRN (16:25)
[2020-12-20 16:30] VITALS: BP 117/63
[2020-12-20] MEDS: SODIUM CHLORIDE 0.9% INJ 10 ML SYR IV SCH (18:49)
[2020-12-20 20:00] VITALS: BP 113/57
[2020-12-20] MEDS: ATORVASTATIN 20 MG TAB PO SCH (21:31)
[2020-12-20] MEDS: DULoxetine 30MG CAPSULE (CYMBALTA) PO SCH (21:31)
[2020-12-20] MEDS: oxyCODONE 5MG TAB PO PRN (22:01)
[2020-12-21] VITALS: BP 105/66
[2020-12-21] MEDS: VANCOMYCIN HCL 750 MG, VIAL MATE ADAPTER 1 EACH in NS 250 ML IV SCH ×2 (00:37→13:10)
[2020-12-21 04:00] VITALS: BP 119/56
[2020-12-21] MEDS: LR 1,000 ML IV SCH ×3 (04:36→15:21)
[2020-12-21] MEDS: MEROPENEM INJ 1 GM in IV 1 EA IV SCH (05:39)
[2020-12-21] MEDS: LEVOTHYROXINE 50MCG TABLET (0.05MG) PO SCH (05:39)
[2020-12-21 05:57] LABS: HEMATOCRIT 27.3 % (36.0-47.0); MEAN CORPUSCULAR HEMOGLOBIN 25.2 pg (27.0-33.0); MEAN CORPUSCULAR HGB CONC 29.3 g/dl (32.0-36.5); MEAN CORPUSCULAR VOLUME 86.1 fl (80.0-96.0); PLATELET COUNT, AUTOMATED 418 10^3/uL (150-450); RED BLOOD COUNT 3.17 10^6/uL (4.00-5.40); WHITE BLOOD COUNT 9.4 10^3/uL (4.0-10.0)
[2020-12-21 06:21] LABS: BLOOD UREA NITROGEN 6 MG/DL (7-18); CALCIUM LEVEL 7.6 MG/DL (8.8-10.2); CARBON DIOXIDE LEVEL 32 MEQ/L (21-32); CHLORIDE LEVEL 106 MEQ/L (98-107); CREATININE FOR GFR 0.31 MG/DL (0.55-1.30); GLOMERULAR FILTRATION RATE > 60.0 (>45); GLUCOSE, FASTING 76 MG/DL (70-100); POTASSIUM SERUM 3.6 MEQ/L (3.5-5.1); SODIUM LEVEL 141 MEQ/L (136-145)
[2020-12-21] MEDS: SODIUM CHLORIDE 0.9% INJ 10 ML SYR IV SCH ×2 (06:29→17:46)
[2020-12-21] MEDS: HumaLOG INSULIN (NovoLOG) PER UNIT SC SCH ×4 (07:30→21:00)
[2020-12-21 08:00] VITALS: BP 105/54
[2020-12-21] MEDS: PANTOPRAZOLE 40MG TAB (PROTONIX) PO SCH (09:49)
[2020-12-21] MEDS: ASPIRIN 81MG ENTERIC TABLET PO SCH (09:49)
[2020-12-21] MEDS: SOLIFENACIN 5 MG TAB PO SCH (09:49)
[2020-12-21] MEDS: LACTULOSE 20 GM/30 ML SYRUP UD PO SCH (09:49)
[2020-12-21] MEDS: SUCRALFATE SUSP 1GM/10ML UD PO SCH ×4 (09:49→21:29)
[2020-12-21] MEDS: MAGNESIUM OXIDE 400MG TAB (MAG-OX) PO SCH ×2 (09:50→21:30)
[2020-12-21] MEDS: PREGABALIN 100 MG CAP (LYRICA) PO SCH ×2 (09:50→21:29)
[2020-12-21] MEDS: POTASSIUM CHLORIDE 10MEQ SR TABLET PO SCH (09:50)
[2020-12-21] MEDS: DOCUSATE SODIUM 100MG CAPSULE PO SCH ×2 (09:51→21:30)
[2020-12-21] MEDS: FOLIC ACID 1 MG TAB PO SCH (09:51)
[2020-12-21] MEDS: BACLOFEN 5MG PER 1/2 TABLET PO SCH ×3 (09:51→21:30)
[2020-12-21] MEDS: CYANOCOBALAMIN 250 MCG TABLET PO SCH (09:51)
[2020-12-21] MEDS: NYSTATIN 100,000 UNITS/GM TOPICAL PWD 15 GM TOP SCH ×2 (09:52→21:31)
[2020-12-21] MEDS: PIPERACILLIN/TAZOBACTAM SOD 3.375 GM in D5W MINI-BAG PLUS 50 ML IV SCH ×3 (09:52→21:30)
[2020-12-21] MEDS: ENOXAPARIN 40MG/0.4ML SYRINGE (J1650 PER 10MG) SC SCH (09:52)
[2020-12-21 12:00] VITALS: BP 111/59
[2020-12-21] MEDS: oxyCODONE 5MG TAB PO PRN (12:19)
[2020-12-21 16:00] VITALS: BP 111/57
[2020-12-21 20:00] VITALS: BP 124/65
[2020-12-21] MEDS: ATORVASTATIN 20 MG TAB PO SCH (21:30)
[2020-12-21] MEDS: DULoxetine 30MG CAPSULE (CYMBALTA) PO SCH (21:30)
[2020-12-22] VITALS: BP 111/55
[2020-12-22] MEDS: VANCOMYCIN HCL 750 MG, VIAL MATE ADAPTER 1 EACH in NS 250 ML IV SCH ×2 (01:01→12:12)
[2020-12-22] MEDS: oxyCODONE 5MG TAB PO PRN ×2 (01:02→15:40)
[2020-12-22] MEDS: PIPERACILLIN/TAZOBACTAM SOD 3.375 GM in D5W MINI-BAG PLUS 50 ML IV SCH ×4 (03:41→20:47)
[2020-12-22 04:00] VITALS: BP 131/78
[2020-12-22] MEDS: LEVOTHYROXINE 50MCG TABLET (0.05MG) PO SCH (05:41)
[2020-12-22] MEDS: SODIUM CHLORIDE 0.9% INJ 10 ML SYR IV SCH ×2 (05:42→18:17)
[2020-12-22 05:54] LABS: HEMOGLOBIN 8.4 g/dl (12.0-15.5); MEAN CORPUSCULAR HEMOGLOBIN 25.6 pg (27.0-33.0); MEAN CORPUSCULAR VOLUME 85.4 fl (80.0-96.0); PLATELET COUNT, AUTOMATED 363 10^3/uL (150-450); RED BLOOD COUNT 3.28 10^6/uL (4.00-5.40); WHITE BLOOD COUNT 9.5 10^3/uL (4.0-10.0)
[2020-12-22 06:20] LABS: BLOOD UREA NITROGEN 5 MG/DL (7-18); CALCIUM LEVEL 7.3 MG/DL (8.8-10.2); CARBON DIOXIDE LEVEL 30 MEQ/L (21-32); CHLORIDE LEVEL 106 MEQ/L (98-107); CREATININE FOR GFR 0.32 MG/DL (0.55-1.30); GLOMERULAR FILTRATION RATE > 60.0 (>45); GLUCOSE, FASTING 86 MG/DL (70-100); POTASSIUM SERUM 3.5 MEQ/L (3.5-5.1); SODIUM LEVEL 140 MEQ/L (136-145)
[2020-12-22] MEDS: HumaLOG INSULIN (NovoLOG) PER UNIT SC SCH ×4 (07:30→21:00)
[2020-12-22 08:00] VITALS: BP 127/69
[2020-12-22] MEDS: SUCRALFATE SUSP 1GM/10ML UD PO SCH ×4 (08:46→20:45)
[2020-12-22] MEDS: LACTULOSE 20 GM/30 ML SYRUP UD PO SCH (08:46)
[2020-12-22] MEDS: ASPIRIN 81MG ENTERIC TABLET PO SCH (08:48)
[2020-12-22] MEDS: DOCUSATE SODIUM 100MG CAPSULE PO SCH ×2 (08:48→20:45)
[2020-12-22] MEDS: PREGABALIN 100 MG CAP (LYRICA) PO SCH ×2 (08:48→20:46)
[2020-12-22] MEDS: PANTOPRAZOLE 40MG TAB (PROTONIX) PO SCH (08:48)
[2020-12-22] MEDS: ENOXAPARIN 40MG/0.4ML SYRINGE (J1650 PER 10MG) SC SCH (08:48)
[2020-12-22] MEDS: POTASSIUM CHLORIDE 10MEQ SR TABLET PO SCH (08:49)
[2020-12-22] MEDS: BACLOFEN 5MG PER 1/2 TABLET PO SCH ×3 (08:49→20:56)
[2020-12-22] MEDS: MAGNESIUM OXIDE 400MG TAB (MAG-OX) PO SCH ×2 (08:49→20:47)
[2020-12-22] MEDS: FOLIC ACID 1 MG TAB PO SCH (08:49)
[2020-12-22] MEDS: SOLIFENACIN 5 MG TAB PO SCH (08:49)
[2020-12-22] MEDS: CYANOCOBALAMIN 250 MCG TABLET PO SCH (08:49)
[2020-12-22] MEDS: NYSTATIN 100,000 UNITS/GM TOPICAL PWD 15 GM TOP SCH ×2 (08:50→20:56)
[2020-12-22] MEDS: MORPHINE 2 MG/ML 1ML VIAL (J2270) IV PRN ×2 (09:04→20:49)
[2020-12-22 12:00] VITALS: BP 128/69
[2020-12-22 16:00] VITALS: BP 126/71
[2020-12-22 20:00] VITALS: BP 144/70
[2020-12-22] MEDS: DULoxetine 30MG CAPSULE (CYMBALTA) PO SCH (20:46)
[2020-12-22] MEDS: ATORVASTATIN 20 MG TAB PO SCH (20:46)
[2020-12-23] VITALS: BP 157/76
[2020-12-23] MEDS: VANCOMYCIN HCL 750 MG, VIAL MATE ADAPTER 1 EACH in NS 250 ML IV SCH (01:02)
[2020-12-23] MEDS: MORPHINE 2 MG/ML 1ML VIAL (J2270) IV PRN ×2 (01:10→09:05)
[2020-12-23] MEDS: PIPERACILLIN/TAZOBACTAM SOD 3.375 GM in D5W MINI-BAG PLUS 50 ML IV SCH ×4 (03:41→22:57)
[2020-12-23 04:00] VITALS: BP 142/67
[2020-12-23] MEDS: LEVOTHYROXINE 50MCG TABLET (0.05MG) PO SCH (04:56)
[2020-12-23] MEDS: oxyCODONE 5MG TAB PO PRN ×2 (05:07→20:43)
[2020-12-23] MEDS: SODIUM CHLORIDE 0.9% INJ 10 ML SYR IV SCH ×2 (07:15→17:10)
[2020-12-23] MEDS: HumaLOG INSULIN (NovoLOG) PER UNIT SC SCH ×4 (07:30→21:00)
[2020-12-23 07:48] LABS: HEMATOCRIT 28.2 % (36.0-47.0); HEMOGLOBIN 8.4 g/dl (12.0-15.5); MEAN CORPUSCULAR HEMOGLOBIN 25.1 pg (27.0-33.0); MEAN CORPUSCULAR HGB CONC 29.8 g/dl (32.0-36.5); MEAN CORPUSCULAR VOLUME 84.2 fl (80.0-96.0); PLATELET COUNT, AUTOMATED 382 10^3/uL (150-450); RED BLOOD COUNT 3.35 10^6/uL (4.00-5.40); WHITE BLOOD COUNT 8.5 10^3/uL (4.0-10.0)
[2020-12-23 08:15] LABS: BLOOD UREA NITROGEN 4 MG/DL (7-18); CALCIUM LEVEL 7.3 MG/DL (8.8-10.2); CARBON DIOXIDE LEVEL 29 MEQ/L (21-32); CHLORIDE LEVEL 106 MEQ/L (98-107); CREATININE FOR GFR 0.25 MG/DL (0.55-1.30); GLOMERULAR FILTRATION RATE > 60.0 (>45); GLUCOSE, FASTING 75 MG/DL (70-100); POTASSIUM SERUM 4.1 MEQ/L (3.5-5.1); SODIUM LEVEL 141 MEQ/L (136-145)
[2020-12-23 08:42] VITALS: BP 131/65
[2020-12-23] MEDS: SUCRALFATE SUSP 1GM/10ML UD PO SCH ×4 (08:58→20:41)
[2020-12-23] MEDS: LINEZOLID 600 MG in IV 1 EA IV SCH ×2 (08:59→20:41)
[2020-12-23] MEDS: LACTULOSE 20 GM/30 ML SYRUP UD PO SCH (09:02)
[2020-12-23] MEDS: ASPIRIN 81MG ENTERIC TABLET PO SCH (09:02)
[2020-12-23] MEDS: PANTOPRAZOLE 40MG TAB (PROTONIX) PO SCH (09:02)
[2020-12-23] MEDS: TORSEMIDE 20 MG TAB PO SCH ×2 (09:02→17:10)
[2020-12-23] MEDS: FOLIC ACID 1 MG TAB PO SCH (09:02)
[2020-12-23] MEDS: DOCUSATE SODIUM 100MG CAPSULE PO SCH ×2 (09:02→20:42)
[2020-12-23] MEDS: NYSTATIN 100,000 UNITS/GM TOPICAL PWD 15 GM TOP SCH ×2 (09:03→20:42)
[2020-12-23] MEDS: CYANOCOBALAMIN 250 MCG TABLET PO SCH (09:03)
[2020-12-23] MEDS: PREGABALIN 100 MG CAP (LYRICA) PO SCH ×2 (09:03→20:41)
[2020-12-23] MEDS: BACLOFEN 5MG PER 1/2 TABLET PO SCH ×3 (09:03→20:42)
[2020-12-23] MEDS: SOLIFENACIN 5 MG TAB PO SCH (09:03)
[2020-12-23] MEDS: POTASSIUM CHLORIDE 10MEQ SR TABLET PO SCH (09:04)
[2020-12-23] MEDS: MAGNESIUM OXIDE 400MG TAB (MAG-OX) PO SCH ×2 (09:04→20:42)
[2020-12-23] MEDS: ENOXAPARIN 40MG/0.4ML SYRINGE (J1650 PER 10MG) SC SCH (09:04)
[2020-12-23 11:45] VITALS: BP 132/85
[2020-12-23 14:00] VITALS: BP 130/86
[2020-12-23] MEDS: ACETAMINOPHEN TAB 650MG DOSE (2X325MG) PO PRN (14:39)
[2020-12-23] MEDS: ATORVASTATIN 20 MG TAB PO SCH (20:42)
[2020-12-23] MEDS: DULoxetine 30MG CAPSULE (CYMBALTA) PO SCH (20:42)
[2020-12-23 22:00] VITALS: BP 118/86
[2020-12-24] MEDS: PIPERACILLIN/TAZOBACTAM SOD 3.375 GM in D5W MINI-BAG PLUS 50 ML IV SCH ×4 (02:43→20:59)
[2020-12-24] MEDS: SODIUM CHLORIDE 0.9% INJ 10 ML SYR IV SCH ×2 (05:48→18:13)
[2020-12-24] MEDS: LEVOTHYROXINE 50MCG TABLET (0.05MG) PO SCH (05:48)
[2020-12-24 06:00] VITALS: BP 132/87
[2020-12-24 09:44] LABS: HEMATOCRIT 34.1 % (36.0-47.0); MEAN CORPUSCULAR HEMOGLOBIN 25.1 pg (27.0-33.0); MEAN CORPUSCULAR HGB CONC 29.9 g/dl (32.0-36.5); MEAN CORPUSCULAR VOLUME 83.8 fl (80.0-96.0); PLATELET COUNT, AUTOMATED 422 10^3/uL (150-450); RED BLOOD COUNT 4.07 10^6/uL (4.00-5.40); WHITE BLOOD COUNT 9.8 10^3/uL (4.0-10.0)
[2020-12-24 09:45] LABS: HEMOGLOBIN 10.2 g/dl (12.0-15.5)
[2020-12-24] MEDS: MAGNESIUM OXIDE 400MG TAB (MAG-OX) PO SCH ×2 (09:57→20:59)
[2020-12-24] MEDS: FOLIC ACID 1 MG TAB PO SCH (09:57)
[2020-12-24] MEDS: LINEZOLID 600 MG in IV 1 EA IV SCH ×2 (09:57→20:59)
[2020-12-24] MEDS: LACTULOSE 20 GM/30 ML SYRUP UD PO SCH (09:57)
[2020-12-24] MEDS: TORSEMIDE 20 MG TAB PO SCH ×2 (09:58→18:11)
[2020-12-24] MEDS: SOLIFENACIN 5 MG TAB PO SCH (09:58)
[2020-12-24] MEDS: DOCUSATE SODIUM 100MG CAPSULE PO SCH ×2 (09:58→20:58)
[2020-12-24] MEDS: ASPIRIN 81MG ENTERIC TABLET PO SCH (09:58)
[2020-12-24] MEDS: PREGABALIN 100 MG CAP (LYRICA) PO SCH ×2 (09:58→20:58)
[2020-12-24] MEDS: BACLOFEN 5MG PER 1/2 TABLET PO SCH ×3 (09:58→20:58)
[2020-12-24] MEDS: POTASSIUM CHLORIDE 10MEQ SR TABLET PO SCH (09:58)
[2020-12-24] MEDS: PANTOPRAZOLE 40MG TAB (PROTONIX) PO SCH (09:58)
[2020-12-24] MEDS: CYANOCOBALAMIN 250 MCG TABLET PO SCH (09:58)
[2020-12-24] MEDS: ENOXAPARIN 40MG/0.4ML SYRINGE (J1650 PER 10MG) SC SCH (09:59)
[2020-12-24] MEDS: NYSTATIN 100,000 UNITS/GM TOPICAL PWD 15 GM TOP SCH ×2 (09:59→20:59)
[2020-12-24] MEDS: SUCRALFATE SUSP 1GM/10ML UD PO SCH ×4 (10:04→20:58)
[2020-12-24] MEDS: HumaLOG INSULIN (NovoLOG) PER UNIT SC SCH ×4 (10:05→20:58)
[2020-12-24 10:06] LABS: BLOOD UREA NITROGEN 4 MG/DL (7-18); CALCIUM LEVEL 7.7 MG/DL (8.8-10.2); CARBON DIOXIDE LEVEL 35 MEQ/L (21-32); CHLORIDE LEVEL 99 MEQ/L (98-107); GLOMERULAR FILTRATION RATE > 60.0 (>45); GLUCOSE, FASTING 80 MG/DL (70-100); POTASSIUM SERUM 3.9 MEQ/L (3.5-5.1); SODIUM LEVEL 138 MEQ/L (136-145)
[2020-12-24] MEDS: oxyCODONE 5MG TAB PO PRN (12:17)
[2020-12-24 14:00] VITALS: BP 107/55
[2020-12-24] MEDS: DULoxetine 30MG CAPSULE (CYMBALTA) PO SCH (20:58)
[2020-12-24] MEDS: ATORVASTATIN 20 MG TAB PO SCH (20:59)
[2020-12-24 22:00] VITALS: BP 118/71
[2020-12-25] MEDS: PIPERACILLIN/TAZOBACTAM SOD 3.375 GM in D5W MINI-BAG PLUS 50 ML IV SCH ×4 (03:38→20:15)
[2020-12-25] MEDS: oxyCODONE 5MG TAB PO PRN ×2 (03:57→18:20)
[2020-12-25] MEDS: LEVOTHYROXINE 50MCG TABLET (0.05MG) PO SCH (05:47)
[2020-12-25] MEDS: SODIUM CHLORIDE 0.9% INJ 10 ML SYR IV SCH ×2 (05:49→18:20)
[2020-12-25 06:00] VITALS: BP 101/61
[2020-12-25 06:14] LABS: HEMATOCRIT 30.7 % (36.0-47.0); HEMOGLOBIN 9.4 g/dl (12.0-15.5); MEAN CORPUSCULAR HEMOGLOBIN 25.1 pg (27.0-33.0); MEAN CORPUSCULAR HGB CONC 30.6 g/dl (32.0-36.5); MEAN CORPUSCULAR VOLUME 82.1 fl (80.0-96.0); PLATELET COUNT, AUTOMATED 361 10^3/uL (150-450); RED BLOOD COUNT 3.74 10^6/uL (4.00-5.40); WHITE BLOOD COUNT 7.9 10^3/uL (4.0-10.0)
[2020-12-25 06:26] LABS: BLOOD UREA NITROGEN 5 MG/DL (7-18); CALCIUM LEVEL 7.4 MG/DL (8.8-10.2); CARBON DIOXIDE LEVEL 34 MEQ/L (21-32); CHLORIDE LEVEL 99 MEQ/L (98-107); CREATININE FOR GFR 0.36 MG/DL (0.55-1.30); GLOMERULAR FILTRATION RATE > 60.0 (>45); GLUCOSE, FASTING 83 MG/DL (70-100); POTASSIUM SERUM 3.4 MEQ/L (3.5-5.1); SODIUM LEVEL 139 MEQ/L (136-145)
[2020-12-25] MEDS: HumaLOG INSULIN (NovoLOG) PER UNIT SC SCH ×4 (07:30→21:00)
[2020-12-25] MEDS: POTASSIUM CHLORIDE 10MEQ SR TABLET PO SCH (08:44)
[2020-12-25] MEDS: BACLOFEN 5MG PER 1/2 TABLET PO SCH ×3 (08:44→20:16)
[2020-12-25] MEDS: PREGABALIN 100 MG CAP (LYRICA) PO SCH ×2 (08:44→20:16)
[2020-12-25] MEDS: PANTOPRAZOLE 40MG TAB (PROTONIX) PO SCH (08:44)
[2020-12-25] MEDS: FOLIC ACID 1 MG TAB PO SCH (08:44)
[2020-12-25] MEDS: SOLIFENACIN 5 MG TAB PO SCH (08:44)
[2020-12-25] MEDS: MAGNESIUM OXIDE 400MG TAB (MAG-OX) PO SCH ×2 (08:44→20:16)
[2020-12-25] MEDS: TORSEMIDE 20 MG TAB PO SCH ×2 (08:45→18:19)
[2020-12-25] MEDS: CYANOCOBALAMIN 250 MCG TABLET PO SCH (08:45)
[2020-12-25] MEDS: ASPIRIN 81MG ENTERIC TABLET PO SCH (08:45)
[2020-12-25] MEDS: ENOXAPARIN 40MG/0.4ML SYRINGE (J1650 PER 10MG) SC SCH (08:45)
[2020-12-25] MEDS: NYSTATIN 100,000 UNITS/GM TOPICAL PWD 15 GM TOP SCH ×2 (08:45→20:16)
[2020-12-25] MEDS: SUCRALFATE SUSP 1GM/10ML UD PO SCH ×4 (08:45→20:16)
[2020-12-25] MEDS: DOCUSATE SODIUM 100MG CAPSULE PO SCH ×2 (08:45→20:16)
[2020-12-25] MEDS: LACTULOSE 20 GM/30 ML SYRUP UD PO SCH (08:46)
[2020-12-25] MEDS: LINEZOLID 600 MG in IV 1 EA IV SCH ×2 (08:46→20:15)
[2020-12-25] MEDS: ACETAMINOPHEN TAB 650MG DOSE (2X325MG) PO PRN (13:04)
[2020-12-25 14:00] VITALS: BP 102/57
[2020-12-25] MEDS: DULoxetine 30MG CAPSULE (CYMBALTA) PO SCH (20:16)
[2020-12-25] MEDS: ATORVASTATIN 20 MG TAB PO SCH (20:16)
[2020-12-25 22:00] VITALS: BP 115/70
[2020-12-26] MEDS: PIPERACILLIN/TAZOBACTAM SOD 3.375 GM in D5W MINI-BAG PLUS 50 ML IV SCH (03:29)
[2020-12-26] MEDS: LEVOTHYROXINE 50MCG TABLET (0.05MG) PO SCH (05:40)
[2020-12-26] MEDS: SODIUM CHLORIDE 0.9% INJ 10 ML SYR IV SCH ×2 (05:41→17:41)
[2020-12-26 06:00] VITALS: BP 119/69
[2020-12-26 06:42] LABS: HEMATOCRIT 31.1 % (36.0-47.0); HEMOGLOBIN 9.4 g/dl (12.0-15.5); MEAN CORPUSCULAR HEMOGLOBIN 24.8 pg (27.0-33.0); MEAN CORPUSCULAR HGB CONC 30.2 g/dl (32.0-36.5); MEAN CORPUSCULAR VOLUME 82.1 fl (80.0-96.0); PLATELET COUNT, AUTOMATED 366 10^3/uL (150-450); RED BLOOD COUNT 3.79 10^6/uL (4.00-5.40); WHITE BLOOD COUNT 10.1 10^3/uL (4.0-10.0)
[2020-12-26 06:56] LABS: BLOOD UREA NITROGEN 7 MG/DL (7-18); CALCIUM LEVEL 7.6 MG/DL (8.8-10.2); CARBON DIOXIDE LEVEL 31 MEQ/L (21-32); CHLORIDE LEVEL 101 MEQ/L (98-107); CREATININE FOR GFR 0.41 MG/DL (0.55-1.30); GLOMERULAR FILTRATION RATE > 60.0 (>45); GLUCOSE, FASTING 95 MG/DL (70-100); POTASSIUM SERUM 3.8 MEQ/L (3.5-5.1); SODIUM LEVEL 138 MEQ/L (136-145)
[2020-12-26] MEDS: BACLOFEN 5MG PER 1/2 TABLET PO SCH ×3 (10:10→22:06)
[2020-12-26] MEDS: MAGNESIUM OXIDE 400MG TAB (MAG-OX) PO SCH ×2 (10:10→22:05)
[2020-12-26] MEDS: SUCRALFATE SUSP 1GM/10ML UD PO SCH ×4 (10:10→22:05)
[2020-12-26] MEDS: DOCUSATE SODIUM 100MG CAPSULE PO SCH ×2 (10:10→22:05)
[2020-12-26] MEDS: FOLIC ACID 1 MG TAB PO SCH (10:11)
[2020-12-26] MEDS: LINEZOLID 600MG TABLET (ZYVOX) PO SCH ×2 (10:11→22:05)
[2020-12-26] MEDS: LACTULOSE 20 GM/30 ML SYRUP UD PO SCH (10:11)
[2020-12-26] MEDS: SOLIFENACIN 5 MG TAB PO SCH (10:11)
[2020-12-26] MEDS: PREGABALIN 100 MG CAP (LYRICA) PO SCH ×2 (10:11→22:05)
[2020-12-26] MEDS: CYANOCOBALAMIN 250 MCG TABLET PO SCH (10:11)
[2020-12-26] MEDS: ASPIRIN 81MG ENTERIC TABLET PO SCH (10:11)
[2020-12-26] MEDS: TORSEMIDE 20 MG TAB PO SCH ×2 (10:11→16:35)
[2020-12-26] MEDS: PANTOPRAZOLE 40MG TAB (PROTONIX) PO SCH (10:11)
[2020-12-26] MEDS: POTASSIUM CHLORIDE 10MEQ SR TABLET PO SCH (10:12)
[2020-12-26] MEDS: ENOXAPARIN 40MG/0.4ML SYRINGE (J1650 PER 10MG) SC SCH (10:12)
[2020-12-26] MEDS: NYSTATIN 100,000 UNITS/GM TOPICAL PWD 15 GM TOP SCH ×2 (10:12→22:06)
[2020-12-26] MEDS: HumaLOG INSULIN (NovoLOG) PER UNIT SC SCH ×4 (10:12→21:00)
[2020-12-26] MEDS: oxyCODONE 5MG TAB PO PRN ×2 (10:43→23:12)
[2020-12-26 14:00] VITALS: BP 132/84
[2020-12-26 22:00] VITALS: BP 118/75
[2020-12-26] MEDS: ATORVASTATIN 20 MG TAB PO SCH (22:06)
[2020-12-26] MEDS: DULoxetine 30MG CAPSULE (CYMBALTA) PO SCH (22:06)
[2020-12-27] MEDS: LEVOTHYROXINE 50MCG TABLET (0.05MG) PO SCH (05:58)
[2020-12-27] MEDS: SODIUM CHLORIDE 0.9% INJ 10 ML SYR IV SCH (05:59)
[2020-12-27 06:00] VITALS: BP 120/73
[2020-12-27 06:10] LABS: HEMATOCRIT 31.2 % (36.0-47.0); HEMOGLOBIN 9.5 g/dl (12.0-15.5); MEAN CORPUSCULAR HEMOGLOBIN 25.3 pg (27.0-33.0); MEAN CORPUSCULAR HGB CONC 30.4 g/dl (32.0-36.5); MEAN CORPUSCULAR VOLUME 83.2 fl (80.0-96.0); PLATELET COUNT, AUTOMATED 380 10^3/uL (150-450); RED BLOOD COUNT 3.75 10^6/uL (4.00-5.40); WHITE BLOOD COUNT 9.4 10^3/uL (4.0-10.0)
[2020-12-27] MEDS: ACETAMINOPHEN TAB 650MG DOSE (2X325MG) PO PRN (06:12)
[2020-12-27 06:32] LABS: BLOOD UREA NITROGEN 6 MG/DL (7-18); CALCIUM LEVEL 7.6 MG/DL (8.8-10.2); CARBON DIOXIDE LEVEL 36 MEQ/L (21-32); CHLORIDE LEVEL 100 MEQ/L (98-107); CREATININE FOR GFR 0.42 MG/DL (0.55-1.30); GLOMERULAR FILTRATION RATE > 60.0 (>45); GLUCOSE, FASTING 85 MG/DL (70-100); POTASSIUM SERUM 3.5 MEQ/L (3.5-5.1); SODIUM LEVEL 141 MEQ/L (136-145)
[2020-12-27] MEDS: SUCRALFATE SUSP 1GM/10ML UD PO SCH ×3 (07:30→16:41)
[2020-12-27] MEDS: HumaLOG INSULIN (NovoLOG) PER UNIT SC SCH ×3 (07:30→16:54)
[2020-12-27] MEDS: SOLIFENACIN 5 MG TAB PO SCH (09:44)
[2020-12-27] MEDS: LACTULOSE 20 GM/30 ML SYRUP UD PO SCH (09:44)
[2020-12-27] MEDS: ENOXAPARIN 40MG/0.4ML SYRINGE (J1650 PER 10MG) SC SCH (09:44)
[2020-12-27] MEDS: LINEZOLID 600MG TABLET (ZYVOX) PO SCH (09:45)
[2020-12-27] MEDS: TORSEMIDE 20 MG TAB PO SCH ×2 (09:45→16:42)
[2020-12-27] MEDS: DOCUSATE SODIUM 100MG CAPSULE PO SCH (09:45)
[2020-12-27] MEDS: PREGABALIN 100 MG CAP (LYRICA) PO SCH (09:45)
[2020-12-27] MEDS: BACLOFEN 5MG PER 1/2 TABLET PO SCH ×2 (09:45→16:41)
[2020-12-27] MEDS: FOLIC ACID 1 MG TAB PO SCH (09:45)
[2020-12-27] MEDS: POTASSIUM CHLORIDE 10MEQ SR TABLET PO SCH (09:45)
[2020-12-27] MEDS: PANTOPRAZOLE 40MG TAB (PROTONIX) PO SCH (09:45)
[2020-12-27] MEDS: CYANOCOBALAMIN 250 MCG TABLET PO SCH (09:46)
[2020-12-27] MEDS: MAGNESIUM OXIDE 400MG TAB (MAG-OX) PO SCH (09:46)
[2020-12-27] MEDS: ASPIRIN 81MG ENTERIC TABLET PO SCH (09:46)
[2020-12-27] MEDS: NYSTATIN 100,000 UNITS/GM TOPICAL PWD 15 GM TOP SCH (09:48)
[2020-12-27] MEDS ORDERED: LINE1TAB6 PO (10:53)
[2020-12-27] MEDS: oxyCODONE 5MG TAB PO PRN (12:44)
[2020-12-27 14:00] VITALS: BP 120/74
== END 2020-12-27 17:13 | disposition home health service (06) | DRG 698 ==
LOC: M ED 19:29 → EEVIPCON 19:30 → M ED INP 19:30 → ENRESERV 12-18 12:15 → M PCU 12-18 12:56 → M MSPAV 12-23 11:43
PROVIDERS: ADMIT Internal Medicine; ATTEND Internal Medicine Nephrology
PROC: 02HV33Z Insertion of Infusion Device into Superior Vena Cava, Percutaneous Approach (ICD-10-PCS; principal; 2020-12-20 14:52)
DX: T83.511A Infection and inflammatory reaction due to indwelling urethral catheter, initial encounter (principal); R65.20 Severe sepsis without septic shock; A41.9 Sepsis, unspecified organism; L89.154 Pressure ulcer of sacral region, stage 4; L89.214 Pressure ulcer of right hip, stage 4; J15.212 Pneumonia due to Methicillin resistant Staphylococcus aureus; L89.223 Pressure ulcer of left hip, stage 3; J96.11 Chronic respiratory failure with hypoxia; J96.12 Chronic respiratory failure with hypercapnia; I50.32 Chronic diastolic (congestive) heart failure; G82.20 Paraplegia, unspecified; M86.68 Other chronic osteomyelitis, other site; Z93.0 Tracheostomy status; E11.40 Type 2 diabetes mellitus with diabetic neuropathy, unspecified; I11.0 Hypertensive heart disease with heart failure; L89.626 Pressure-induced deep tissue damage of left heel; E66.01 Morbid (severe) obesity due to excess calories; N31.9 Neuromuscular dysfunction of bladder, unspecified; M06.9 Rheumatoid arthritis, unspecified; R33.9 Retention of urine, unspecified; E03.9 Hypothyroidism, unspecified; Z68.33 Body mass index [BMI] 33.0-33.9, adult; D50.9 Iron deficiency anemia, unspecified; B95.1 Streptococcus, group B, as the cause of diseases classified elsewhere; G43.909 Migraine, unspecified, not intractable, without status migrainosus; B96.1 Klebsiella pneumoniae [K. pneumoniae] as the cause of diseases classified elsewhere; E78.5 Hyperlipidemia, unspecified; K59.09 Other constipation; F41.9 Anxiety disorder, unspecified; F32.9 Major depressive disorder, single episode, unspecified; Z90.49 Acquired absence of other specified parts of digestive tract; Z79.82 Long term (current) use of aspirin; Z79.899 Other long term (current) drug therapy; Z88.8 Allergy status to other drugs, medicaments and biological substances; Z66 Do not resuscitate; Z93.3 Colostomy status; Z79.891 Long term (current) use of opiate analgesic; Z86.14 Personal history of Methicillin resistant Staphylococcus aureus infection; Z98.1 Arthrodesis status

== ENCOUNTER 2020-12-30 13:57 | Inpatient (IN) | payer MEDICARE, OTHER ==
[~2020-12-30] VITALS: Ht 172.7 cm; Wt 106.3 kg
[2020-12-30] MEDS: ASPIRIN 81MG ENTERIC TABLET PO SCH (09:00)
[2020-12-30] MEDS: SOLIFENACIN 5 MG TAB PO SCH (09:00)
[2020-12-30] MEDS: LEVOTHYROXINE 50MCG TABLET (0.05MG) PO SCH (09:00)
[2020-12-30] MEDS: CYANOCOBALAMIN 250 MCG TABLET PO SCH (09:00)
[~2020-12-30 13:57] MED LIST changes: +ASPI-161 PO; +KLOR10TA76 PO; +MIRA1POW3 PO; +PANT-23 PO; +POLY1.4S OU; -POTA-136 PO; +POTA10TA67 PO; +SENN8.6T28 PO; +SUCR1SS PO; +SYNT50TA PO; -TIZA10TA PO; +TIZA4TAB4 PO; +VESI5TAB2 PO
--- NOTE | 2020-12-30 15:00 | REP ---
INDICATION: DYSPNEA/COUGH. COMPARISON: Portable chest, 12/17/2020 TECHNIQUE: AP upright portable chest image was obtained. FINDINGS: There is elevation of the right hemidiaphragm and there is compressive atelectasis of the adjacent lung. There is linear atelectasis at the left lung base. The heart is largely obscured but there is no evidence for congestive heart failure. Permanent tracheostomy is noted. Status post posterior interbody fusion of multiple upper thoracic vertebral levels. IMPRESSION: 1. Bibasilar atelectasis, right greater than left. No significant change. 2. Other findings as noted, not significantly changed. <Electronically signed by Herbie Brice > 12/30/20 [id number]
[2020-12-30 15:28] LABS: VENOUS BASE EXCESS 5.3 (-2.0-2.0); VENOUS HCO3 31.7 MEQ/L (23.0-27.0); VENOUS O2 SATURATION 64.5 % (60.0-80.0); VENOUS PARTIAL PRESSURE CO2 54.9 mmHg (38.0-50.0); VENOUS PH 7.379 UNITS (7.330-7.430); VENOUS STANDARD HCO3 28.5 MEQ/L; VENOUS TOTAL CO2 33.4 MEQ/L (24.0-28.0)
[2020-12-30 15:34] LABS: BASO # 0.2 10^3/uL (0.0-0.2); BASO % 0.8 % (0.0-1.0); EOS # 0.5 10^3/uL (0.0-0.5); EOS % 2.8 % (0.0-3.0); HEMATOCRIT 37.4 % (36.0-47.0); LYMPH # 1.7 10^3/uL (1.5-5.0); LYMPH % 8.8 % (24.0-44.0); MEAN CORPUSCULAR HEMOGLOBIN 24.9 pg (27.0-33.0); MEAN CORPUSCULAR HGB CONC 29.4 g/dl (32.0-36.5); MEAN CORPUSCULAR VOLUME 84.8 fl (80.0-96.0); MONO # 1.1 10^3/uL (0.0-0.8); NEUTROPHILS # 15.5 10^3/uL (1.5-8.5); NEUTROPHILS % 81.2 % (36.0-66.0); PLATELET COUNT, AUTOMATED 458 10^3/uL (150-450); RED BLOOD COUNT 4.41 10^6/uL (4.00-5.40); WHITE BLOOD COUNT 19.1 10^3/uL (4.0-10.0)
[2020-12-30 16:11] LABS: ALT/SGPT 15 U/L (12-78); BILIRUBIN,DIRECT < 0.1 MG/DL (0.0-0.2); BILIRUBIN,TOTAL 0.2 MG/DL (0.2-1.0); NT-PRO BNP 467 PG/ML (<125); TOTAL PROTEIN 7.2 GM/DL (6.4-8.2)
[2020-12-30] MEDS ORDERED: ISOVUE-370 76% 100ML VIAL As Ordered ONE (16:56)
[2020-12-30] MEDS ORDERED: HOME MED LIST COMPLETE! XX SCH (17:00)
--- NOTE | 2020-12-30 19:21 | REPVR ---
PROCEDURE INFORMATION: Exam: CT Chest With Contrast; Diagnostic Exam date and time: 12/30/2020 6:09 PM Age: 65 years old Clinical indication: Fever TECHNIQUE: Imaging protocol: Diagnostic computed tomography of the chest with contrast. Radiation optimization: All CT scans at this facility use at least one of these dose optimization techniques: automated exposure control; mA and/or kV adjustment per patient size (includes targeted exams where dose is matched to clinical indication); or iterative reconstruction. Contrast material: ISOVUE 370; Contrast volume: 100 ml; Contrast route: INTRAVENOUS (IV); COMPARISON: CT ANGIO CHEST 11/06/2020 3:51 PM FINDINGS: Tubes, catheters and devices: Tracheostomy tube with its tip in the tracheal lumen. Lungs: Atelectasis at bilateral lung bases. Pleural spaces: Small right pleural effusion. Heart: Unremarkable. No cardiomegaly. No pericardial effusion. Pulmonary artery is enlarged. Aorta: Ectatic ascending aorta measuring 4 cm. Lymph nodes: Unremarkable. No enlarged lymph nodes. Bones/joints: Posterior upper thoracic spinal fixation. Soft tissues: Unremarkable. IMPRESSION: Atelectasis at the bilateral lung bases. Small right pleural effusion. Enlarged pulmonary artery. Correlation with pulmonary arterial hypertension. Electronically signed by: Luis Antonio Guerin On 12/30/2020 19:21:16 PM
--- NOTE | 2020-12-30 19:32 | REPVR ---
PROCEDURE INFORMATION: Exam: CT Abdomen And Pelvis With Contrast Exam date and time: 12/30/2020 6:09 PM Age: 65 years old Clinical indication: Fever TECHNIQUE: Imaging protocol: Computed tomography of the abdomen and pelvis with contrast. Radiation optimization: All CT scans at this facility use at least one of these dose optimization techniques: automated exposure control; mA and/or kV adjustment per patient size (includes targeted exams where dose is matched to clinical indication); or iterative reconstruction. Contrast material: ISOVUE 370; Contrast volume: 100 ml; Contrast route: INTRAVENOUS (IV); COMPARISON: CT ABD/PEL W/IV CONTRAST ONLY 12/17/2020 10:41 PM FINDINGS: Pleural spaces: Small right pleural effusion. Atelectasis at the right lung base. Liver: Liver is enlarged and measures 23 cm. Gallbladder and bile ducts: Cholecystectomy clips. Pancreas: Normal. No ductal dilation. Spleen: Normal. No splenomegaly. Adrenal glands: Normal. No mass. Kidneys and ureters: Normal. No hydronephrosis. Stomach and bowel: Left lower quadrant colostomy. Appendix: No evidence of appendicitis. Intraperitoneal space: Unremarkable. No free air. No significant fluid collection. Vasculature: Unremarkable. No abdominal aortic aneurysm. Lymph nodes: Unremarkable. No enlarged lymph nodes. Urinary bladder: Wood's catheter in place. Reproductive: Unremarkable as visualized. Bones/joints: Degenerative changes of the spine. Soft tissues: Unremarkable. IMPRESSION: No acute abdominal or pelvic abnormality. Electronically signed by: Luis Antonio Guerin On 12/30/2020 19:31:59 PM
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
[2020-12-30] MEDS ORDERED: NS 1,000 ML IV ONE (19:45)
[2020-12-30] MEDS ORDERED: MIRALAX *UNIT DOSE* 17GM PACKET PO PRN (19:45)
[2020-12-30] MEDS: ONDANSETRON 4MG/2ML VIAL IV PRN (19:55)
[2020-12-30 20:26] LABS: INR 1.14
[2020-12-30 20:27] LABS: PARTIAL THROMBOPLASTIN TIME 32.2 SECONDS (25.9-37.0)
[2020-12-30 20:52] LABS: BLOOD UREA NITROGEN 8 MG/DL (7-18); CALCIUM LEVEL 7.8 MG/DL (8.8-10.2); CARBON DIOXIDE LEVEL 32 MEQ/L (21-32); CHLORIDE LEVEL 101 MEQ/L (98-107); CREATININE FOR GFR 0.34 MG/DL (0.55-1.30); GLOMERULAR FILTRATION RATE > 60.0 (>45); GLUCOSE, FASTING 107 MG/DL (70-100); POTASSIUM SERUM 4.1 MEQ/L (3.5-5.1); SODIUM LEVEL 139 MEQ/L (136-145)
[2020-12-30] MEDS: DOCUSATE SODIUM 100MG CAPSULE PO SCH (21:00)
[2020-12-30] MEDS: FERROUS GLUCONATE 324 MG TAB PO SCH (21:00)
[2020-12-30] MEDS: DULoxetine 30 MG CAP (CYMBALTA) PO SCH (21:00)
[2020-12-30] MEDS: MAGNESIUM OXIDE 400MG TAB (MAG-OX) PO SCH (21:00)
[2020-12-30] MEDS: SENNA 8.6 MG TAB (SENOKOT) PO SCH (21:00)
[2020-12-30] MEDS: SUCRALFATE SUSP 1GM/10ML UD PO SCH (21:00)
[2020-12-30 21:30] VITALS: BP 121/73
--- NOTE | 2020-12-30 22:10 | IPNPDOC ---
Text Note Date of Service Significant event NOTE Notified pt with chronic pressure injury wounds. She was recently here last month. Given she arrives with undressed wounds- will defer to last consult note reccs from Dr. Reed for tonight's dressing. Appreciate wound reccs in AM to reassess and recommend any further interventions. "Wound care should include cleaning the wound with Vashe Wound Cleanser for 10 minutes utilizing 4 by 4 gauzes. The gauzes should then be removed. The large, deepsacral and left ischial wound should be treated with Drawtex cut to the size of the wound. This can be layered and then covered with an Optilock dressing. This should be changed every other day or on a p.r.n. basis if the drainage is significant. . An outer foam dressing should be used to cover the drawtex. The right ischial wound can be treated with a Hydrofera Blue foam dressing. Heel protection is mandatory and heel flow boots for both and left heels are already in place and should be maintained. Special attention is needed for the left heel deep tissue injury. This should be covered with a foam dressing and inspected on a daily basis. " VS,Fishbone, I+O VS, Fishbone, I+O Laboratory Tests 12/30/20 14:22 12/30/20 20:10 Vital Signs Date Time Temp Pulse Resp B/P (MAP) Pulse Ox O2 Delivery O2 Flow Rate FiO2 12/30/20 21:06 97.4 105 19 160/80 (106) 97 Room Air ANNABEL NAGEL NP Dec 30, 2020 22:10
[2020-12-30] MEDS: ATORVASTATIN 20 MG TAB PO SCH (22:35)
[2020-12-30] MEDS: PREGABALIN 100 MG CAP (LYRICA) PO SCH (22:36)
[2020-12-30] MEDS: BACLOFEN 10 MG TAB PO SCH (22:37)
[2020-12-30] MEDS: oxyCODONE 5MG TAB PO PRN (22:37)
[2020-12-30] MEDS: TORSEMIDE 20 MG TAB PO SCH (22:38)
[2020-12-31] MEDS: DULoxetine 30 MG CAP (CYMBALTA) PO SCH ×2 (00:18→20:27)
[2020-12-31] MEDS: NYSTATIN 100,000 UNITS/GM TOPICAL PWD 15 GM TOP SCH ×3 (00:20→20:26)
[2020-12-31 06:00] VITALS: BP 103/65
[2020-12-31 06:19] LABS: HEMATOCRIT 32.2 % (36.0-47.0); HEMOGLOBIN 9.6 g/dl (12.0-15.5); MEAN CORPUSCULAR HEMOGLOBIN 24.8 pg (27.0-33.0); MEAN CORPUSCULAR HGB CONC 29.8 g/dl (32.0-36.5); MEAN CORPUSCULAR VOLUME 83.2 fl (80.0-96.0); PLATELET COUNT, AUTOMATED 401 10^3/uL (150-450); RED BLOOD COUNT 3.87 10^6/uL (4.00-5.40); WHITE BLOOD COUNT 11.8 10^3/uL (4.0-10.0)
[2020-12-31 06:48] LABS: BLOOD UREA NITROGEN 7 MG/DL (7-18); C REACTIVE PROTEIN QUANTITATIV 5.29 MG/DL (0.00-0.30); CALCIUM LEVEL 7.9 MG/DL (8.8-10.2); CARBON DIOXIDE LEVEL 33 MEQ/L (21-32); CHLORIDE LEVEL 99 MEQ/L (98-107); CREATININE FOR GFR 0.42 MG/DL (0.55-1.30); GLOMERULAR FILTRATION RATE > 60.0 (>45); GLUCOSE, FASTING 112 MG/DL (70-100); MAGNESIUM LEVEL 2.1 MG/DL (1.8-2.4); POTASSIUM SERUM 3.7 MEQ/L (3.5-5.1); SODIUM LEVEL 138 MEQ/L (136-145)
[2020-12-31] MEDS: SUCRALFATE SUSP 1GM/10ML UD PO SCH ×4 (08:36→20:27)
[2020-12-31] MEDS: LACTULOSE 20 GM/30 ML SYRUP UD PO SCH (08:37)
[2020-12-31] MEDS: MAGNESIUM OXIDE 400MG TAB (MAG-OX) PO SCH ×2 (08:37→20:28)
[2020-12-31] MEDS: DOCUSATE SODIUM 100MG CAPSULE PO SCH ×2 (08:37→20:28)
[2020-12-31] MEDS: PREGABALIN 100 MG CAP (LYRICA) PO SCH ×2 (08:38→20:27)
[2020-12-31] MEDS: LEVOTHYROXINE 50MCG TABLET (0.05MG) PO SCH (08:38)
[2020-12-31] MEDS: POTASSIUM CHLORIDE 10 MEQ SR TABLET PO SCH (08:38)
[2020-12-31] MEDS: BACLOFEN 10 MG TAB PO SCH ×3 (08:38→20:27)
[2020-12-31] MEDS: FOLIC ACID 1 MG TAB PO SCH (08:38)
[2020-12-31] MEDS: ASPIRIN 81MG ENTERIC TABLET PO SCH (08:38)
[2020-12-31] MEDS: SOLIFENACIN 5 MG TAB PO SCH (08:39)
[2020-12-31] MEDS: CYANOCOBALAMIN 250 MCG TABLET PO SCH (08:39)
[2020-12-31] MEDS: ENOXAPARIN 40MG/0.4ML SYRINGE (J1650 PER 10MG) SC SCH (08:39)
[2020-12-31] MEDS: TORSEMIDE 20 MG TAB PO SCH ×2 (08:39→20:27)
[2020-12-31] MEDS: METOCLOPRAMIDE 10 MG TAB PO PRN (08:41)
[2020-12-31] MEDS: ONDANSETRON 4MG/2ML VIAL IV PRN (08:50)
[2020-12-31] MEDS ORDERED: PANTOPRAZOLE 40MG TAB (PROTONIX) PO SCH (09:00)
[2020-12-31 09:43] LABS: ERYTHROCYTE SEDIMENTATION RATE 62 mm/hr (0-30)
[2020-12-31] MEDS: oxyCODONE 5MG TAB PO PRN (11:45)
[2020-12-31 14:00] VITALS: BP 113/65
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
--- NOTE | 2020-12-31 19:44 | ECGEPIP ---
[facility] - ED Test Date: 2020-12-30 Pat Name: HANNA GARVIN Department: Room: - Gender: Female [employer]: BAM : 1955 Requested By: Alisha Lopez Order Number: [id number] Reading MD: Alisha Lopez Measurements Intervals Krypton Rate: 113 P: 31 CO: 154 QRS: -5 QRSD: 88 T: 69 QT: 334 QTc: 458 Interpretive Statements Sinus tachycardia Nonspecific ST and T wave abnormality prwp similar 12/17/20 Electronically Signed on 12-31-2020 19:44:24 EDT by Alisha Lopez
[2020-12-31] MEDS: ATORVASTATIN 20 MG TAB PO SCH (20:27)
[2020-12-31] MEDS: PANTOPRAZOLE 40MG TAB (PROTONIX) PO SCH (20:27)
[2020-12-31] MEDS: SENNA 8.6 MG TAB (SENOKOT) PO SCH (20:27)
[2020-12-31] MEDS: FERROUS GLUCONATE 324 MG TAB PO SCH (20:28)
[2020-12-31 22:00] VITALS: BP 116/66
[2021-01-01] MEDS: oxyCODONE 5MG TAB PO PRN ×2 (01:26→13:48)
[2021-01-01 06:00] VITALS: BP 104/67
[2021-01-01 07:06] LABS: HEMATOCRIT 30.6 % (36.0-47.0); HEMOGLOBIN 9.3 g/dl (12.0-15.5); MEAN CORPUSCULAR HEMOGLOBIN 25.5 pg (27.0-33.0); MEAN CORPUSCULAR HGB CONC 30.4 g/dl (32.0-36.5); MEAN CORPUSCULAR VOLUME 83.8 fl (80.0-96.0); PLATELET COUNT, AUTOMATED 374 10^3/uL (150-450); RED BLOOD COUNT 3.65 10^6/uL (4.00-5.40); WHITE BLOOD COUNT 12.8 10^3/uL (4.0-10.0)
[2021-01-01 07:34] LABS: BLOOD UREA NITROGEN 8 MG/DL (7-18); CALCIUM LEVEL 7.6 MG/DL (8.8-10.2); CARBON DIOXIDE LEVEL 37 MEQ/L (21-32); CHLORIDE LEVEL 96 MEQ/L (98-107); CREATININE FOR GFR 0.53 MG/DL (0.55-1.30); GLOMERULAR FILTRATION RATE > 60.0 (>45); GLUCOSE, FASTING 86 MG/DL (70-100); MAGNESIUM LEVEL 1.8 MG/DL (1.8-2.4); POTASSIUM SERUM 3.3 MEQ/L (3.5-5.1); SODIUM LEVEL 137 MEQ/L (136-145)
[2021-01-01] MEDS: LACTULOSE 20 GM/30 ML SYRUP UD PO SCH (09:00)
[2021-01-01] MEDS: SUCRALFATE SUSP 1GM/10ML UD PO SCH ×4 (09:29→21:27)
[2021-01-01] MEDS: ASPIRIN 81MG ENTERIC TABLET PO SCH (09:30)
[2021-01-01] MEDS: MAGNESIUM OXIDE 400MG TAB (MAG-OX) PO SCH ×2 (09:30→21:28)
[2021-01-01] MEDS: PREGABALIN 100 MG CAP (LYRICA) PO SCH ×2 (09:30→21:28)
[2021-01-01] MEDS: FOLIC ACID 1 MG TAB PO SCH (09:30)
[2021-01-01] MEDS: DOCUSATE SODIUM 100MG CAPSULE PO SCH ×2 (09:30→21:28)
[2021-01-01] MEDS: CYANOCOBALAMIN 250 MCG TABLET PO SCH (09:30)
[2021-01-01] MEDS: SOLIFENACIN 5 MG TAB PO SCH (09:30)
[2021-01-01] MEDS: POTASSIUM CHLORIDE 10 MEQ SR TABLET PO SCH (09:31)
[2021-01-01] MEDS: LEVOTHYROXINE 50MCG TABLET (0.05MG) PO SCH (09:31)
[2021-01-01] MEDS: PANTOPRAZOLE 40MG TAB (PROTONIX) PO SCH ×2 (09:31→21:27)
[2021-01-01] MEDS: BACLOFEN 10 MG TAB PO SCH ×3 (09:31→21:28)
[2021-01-01] MEDS: NYSTATIN 100,000 UNITS/GM TOPICAL PWD 15 GM TOP SCH ×2 (09:32→21:27)
[2021-01-01] MEDS: ENOXAPARIN 40MG/0.4ML SYRINGE (J1650 PER 10MG) SC SCH (09:32)
[2021-01-01] MEDS: TORSEMIDE 20 MG TAB PO SCH ×2 (09:32→21:27)
[2021-01-01] MEDS ORDERED: PILL CUTTER 1 EACH XX PRN (09:45)
[2021-01-01 14:00] VITALS: BP 115/65
[2021-01-01] MEDS: METOCLOPRAMIDE 10 MG TAB PO PRN (14:00)
[2021-01-01] MEDS ORDERED: DEXTROSE 50% 50 ML SYRINGE IV PRN (19:55)
[2021-01-01] MEDS ORDERED: GLUCOSE 4GM CHEW TABLET PO PRN (19:55)
[2021-01-01] MEDS ORDERED: GLUCAGON INJ 1MG VIAL SC PRN (19:55)
[2021-01-01] MEDS: HumaLOG INSULIN (NovoLOG) PER UNIT SC SCH (20:14)
--- NOTE | 2021-01-01 20:24 | IPNPDOC ---
Subjective Date Seen The patient was seen on 01/01/21. Subjective Chief Complaint/HPI Patient was seen and examined at bedside this morning. She reports her nausea has improved. She denies chest pain, shortness of breath, abdominal pain. Other systems 10 point review of system is negative except for what is noted in the HPI. Objective Physical Examination General Exam: Positive: Alert, Cooperative, No Acute Distress Eye Exam: Negative: Sclera icteric Neck Exam: Positive: Other (On trach collar) Chest Exam: Positive: Normal air movement; Negative: Wheezing Heart Exam: Positive: Rate Normal, Regular Rhythm, Normal S1, Normal S2 Abdomen Exam: Positive: Normal bowel sounds, Soft Extremity Exam: Negative: Edema Skin Exam: Negative: Rash Neuro Exam: Positive: Other (Paraplegic) Assessment /Plan Assessment #Leukocytosis -Possibly secondary to her chronic wounds. We will continue to monitor as she is high risk for infection only due to her chronic sacral wounds but also her chronic Garcia/leakage. -Blood cultures thus far negative. If she develops a fever will start antibiotics. #Paraplegia with chronic trach, stage IV sacral ulcer, abdominal spasms, and chronic pain -Supportive care - garcia care, wound dressing as per protocol (will likely need to be increased to daily). -Symptomatic management for chronic pain - oxycodone, pregabalin; and metoclopramide. #Bladder spasms -Continue solifenacin #Diabetes mellitus with diabetic neuropathy -BG is acceptable range. Continue with sliding scale insulin, and hypoglycemic protocol. -Continue pregabalin for the neuropathy #Hyperlipidemia -Continue atorvastatin #Anxiety and depression -Continue diazepam and duloxetine #Constipation -Continue docusate sodium, Senna, Miralax, and lactulose #GERD -Continue Pantoprazole and Carafate #HFpEF -No signs of acute exacerbation. Continue ambulatory furosemide. 9. DVT ppx -Lovenox Plan/VTE VTE Prophylaxis Ordered?: Yes VS, I&O, 24H, Fishbone Vital Signs/I&O Vital Signs Date Time Temp Pulse Resp B/P (MAP) Pulse Ox O2 Delivery O2 Flow Rate FiO2 01/01/21 14:18 20 Trach Collar 01/01/21 14:00 97.3 118 115/65 (82) 91 8.0 35 I&O- Last 24 Hours up to 6 AM 01/01/21 06:00 Intake Total 1565 ml Output Total 1150 ml Balance 415 ml Laboratory Data 24H LABS Laboratory Tests 2 01/01/21 06:33: Nucleated Red Blood Cells % (auto) 0.0, Anion Gap 4L, Glomerular Filtration Rate > 60.0, Calcium Level 7.6L, Magnesium Level 1.8 CBC/BMP Laboratory Tests 01/01/21 06:33 Microbiology Microbiology 12/30/20 Respiratory Virus Panel (PCR) (PARISA) - Final, Complete 12/30/20 Blood Culture - Preliminary, Resulted No Growth after 48 hours. All Specime... 12/30/20 Blood Culture - Preliminary, Resulted No Growth after 48 hours. All Specime... TAYLA NEVILLE M.D. Jan 01, 2021 19:55
[2021-01-01] MEDS: DULoxetine 30 MG CAP (CYMBALTA) PO SCH (21:27)
[2021-01-01] MEDS: SENNA 8.6 MG TAB (SENOKOT) PO SCH (21:27)
[2021-01-01] MEDS: ATORVASTATIN 20 MG TAB PO SCH (21:28)
[2021-01-01] MEDS: FERROUS GLUCONATE 324 MG TAB PO SCH (21:28)
[2021-01-01 22:00] VITALS: BP 103/56
[2021-01-02 06:00] VITALS: BP 106/82
[2021-01-02 06:52] LABS: HEMATOCRIT 31.3 % (36.0-47.0); HEMOGLOBIN 9.5 g/dl (12.0-15.5); MEAN CORPUSCULAR HEMOGLOBIN 25.1 pg (27.0-33.0); MEAN CORPUSCULAR HGB CONC 30.4 g/dl (32.0-36.5); MEAN CORPUSCULAR VOLUME 82.8 fl (80.0-96.0); PLATELET COUNT, AUTOMATED 375 10^3/uL (150-450); RED BLOOD COUNT 3.78 10^6/uL (4.00-5.40); WHITE BLOOD COUNT 16.3 10^3/uL (4.0-10.0)
[2021-01-02 07:03] LABS: BLOOD UREA NITROGEN 9 MG/DL (7-18); CALCIUM LEVEL 7.8 MG/DL (8.8-10.2); CARBON DIOXIDE LEVEL 36 MEQ/L (21-32); CHLORIDE LEVEL 94 MEQ/L (98-107); CREATININE FOR GFR 0.64 MG/DL (0.55-1.30); GLOMERULAR FILTRATION RATE > 60.0 (>45); GLUCOSE, FASTING 128 MG/DL (70-100); MAGNESIUM LEVEL 1.8 MG/DL (1.8-2.4); POTASSIUM SERUM 3.2 MEQ/L (3.5-5.1); SODIUM LEVEL 136 MEQ/L (136-145)
[2021-01-02] MEDS: SUCRALFATE SUSP 1GM/10ML UD PO SCH ×4 (07:57→22:05)
[2021-01-02] MEDS: LACTULOSE 20 GM/30 ML SYRUP UD PO SCH (07:58)
[2021-01-02] MEDS: TORSEMIDE 20 MG TAB PO SCH ×2 (07:58→21:00)
[2021-01-02] MEDS: diazePAM 2 MG TAB PO PRN (07:59)
[2021-01-02] MEDS: CYANOCOBALAMIN 250 MCG TABLET PO SCH (07:59)
[2021-01-02] MEDS: oxyCODONE 5MG TAB PO PRN ×2 (07:59→22:06)
[2021-01-02] MEDS: SOLIFENACIN 5 MG TAB PO SCH (07:59)
[2021-01-02] MEDS: ASPIRIN 81MG ENTERIC TABLET PO SCH (07:59)
[2021-01-02] MEDS: PANTOPRAZOLE 40MG TAB (PROTONIX) PO SCH ×2 (07:59→22:06)
[2021-01-02] MEDS: POTASSIUM CHLORIDE 10 MEQ SR TABLET PO SCH (07:59)
[2021-01-02] MEDS: PREGABALIN 100 MG CAP (LYRICA) PO SCH ×2 (08:00→22:07)
[2021-01-02] MEDS: DOCUSATE SODIUM 100MG CAPSULE PO SCH ×2 (08:00→22:07)
[2021-01-02] MEDS: MAGNESIUM OXIDE 400MG TAB (MAG-OX) PO SCH ×2 (08:00→22:06)
[2021-01-02] MEDS: FOLIC ACID 1 MG TAB PO SCH (08:00)
[2021-01-02] MEDS: LEVOTHYROXINE 50MCG TABLET (0.05MG) PO SCH (08:01)
[2021-01-02] MEDS: ENOXAPARIN 40MG/0.4ML SYRINGE (J1650 PER 10MG) SC SCH (08:01)
[2021-01-02] MEDS: BACLOFEN 10 MG TAB PO SCH ×3 (08:01→22:07)
[2021-01-02] MEDS: NYSTATIN 100,000 UNITS/GM TOPICAL PWD 15 GM TOP SCH ×2 (08:01→22:08)
[2021-01-02] MEDS: METOCLOPRAMIDE 10 MG TAB PO PRN (08:13)
[2021-01-02] MEDS: ONDANSETRON 4MG/2ML VIAL IV PRN (10:25)
[2021-01-02 14:00] VITALS: BP_SYST 84; BP_SYST 86; BP_DIAS 52; BP_DIAS 56
[2021-01-02] MEDS ORDERED: NS 500 ML IV ONE ×2 (14:40→20:00)
[2021-01-02] MEDS ORDERED: KCL 10MEQ/100ML SWI (KRUN) 10 MEQ in IV 1 EA IV ONE (17:50)
--- NOTE | 2021-01-02 17:59 | IPNPDOC ---
Subjective Date Seen The patient was seen on 01/02/21. Subjective Chief Complaint/HPI Patient was seen and examined at bedside this morning. She was complaining of intermittent abdominal pain with associated nausea but no episodes of emesis. She denies chest pain and shortness of breath. Other systems 10 point review of system was negative except for as noted in HPI Objective Physical Examination Neck Exam: Positive: Other (On trach collar) Neuro Exam: Positive: Other (Paraplegic) Other physical findings General: Lying in bed, no acute distress Head/Neck/Throat: Trachea midline, mucous membranes moist Eyes: Sclera anicteric, no erythema or discharge appreciated bilaterally Thorax: Normal respiratory effort on room air, lungs clear to auscultation bilaterally, no wheezes/rales/rhonchi Cardiovascular: Normal rate, regular rhythm, normal S1, S2; no S3, S4, rubs/gallops/murmurs Abdomen: Bowel sounds present, soft, diffuse tenderness reported with palpation, colostomy noted to have stool and gas Genitourinary: Garcia draining yellow urine Musculoskeletal: Moving all extremities, no edema Skin: Chronic sacral wound dressing was dry Neurologic: Awake, alert, and oriented. She is able to move her right upper extremity however unable to move her lower extremity as well as left arm. Assessment /Plan Plan/VTE VTE Prophylaxis Ordered?: Yes Plan #Leukocytosis -Increasing leukocyte count. There was purulent sputum that was suctioned from her ET tube. Will have a chest x-ray done and start cefepime. However, with her chronic wounds I do not anticipate her leukocyte count returning back to normal she likely also explains the elevated ESR. #Abdominal pain -Follow-up on CT scan of the abdomen. #Left arm swelling -We will obtain an ultrasound of the left arm to rule out a DVT #Hypotensive -She was bolus 750 cc. Hold parameters made for her furosemide. #Paraplegia with chronic trach, stage IV sacral ulcer, abdominal spasms, and chronic pain -Supportive care - garcia care, wound dressing as per protocol (will likely need to be increased to daily). -Symptomatic management for chronic pain - oxycodone, pregabalin; and meto clopramide. #Bladder spasms -Continue solifenacin #Diabetes mellitus with diabetic neuropathy -BG is acceptable range. Continue with sliding scale insulin, and hypoglycemic protocol. -Continue pregabalin for the neuropathy #Hyperlipidemia -Continue atorvastatin #Anxiety and depression -Continue diazepam and duloxetine #Constipation -Continue docusate sodium, Senna, Miralax, and lactulose #GERD -Continue Pantoprazole and Carafate #HFpEF -No signs of acute exacerbation. Continue ambulatory furosemide. #DVT ppx -Lovenox VS, I&O, 24H, Fishbone Vital Signs/I&O Vital Signs Date Time Temp Pulse Resp B/P (MAP) Pulse Ox O2 Delivery O2 Flow Rate FiO2 01/02/21 14:00 97.8 86 20 86/52 (63) 92 Trach Collar 8.0 35 I&O- Last 24 Hours up to 6 AM 01/02/21 06:00 Intake Total 840 ml Output Total 700 ml Balance 140 ml Laboratory Data 24H LABS Laboratory Tests 2 01/01/21 20:10: Bedside Glucose (Misc Panel) 144H 01/02/21 06:28: Nucleated Red Blood Cells % (auto) 0.0, Anion Gap 6L, Glomerular Filtration Rate > 60.0, Calcium Level 7.8L, Magnesium Level 1.8 01/02/21 11:49: Bedside Glucose (Misc Panel) 169H 01/02/21 16:27: Bedside Glucose (Misc Panel) 119H CBC/BMP Laboratory Tests 01/02/21 06:28 Microbiology Microbiology 12/30/20 Respiratory Virus Panel (PCR) (PARISA) - Final, Complete 12/30/20 Blood Culture - Preliminary, Resulted No Growth after 72 hours. All specime... 12/30/20 Blood Culture - Preliminary, Resulted No Growth after 72 hours. All specime... TAYLA NEVILLE M.D. Jan 02, 2021 17:52
[2021-01-02 18:53] VITALS: BP 89/53
--- NOTE | 2021-01-02 19:23 | REP ---
INDICATION: r/o DVT COMPARISON: 11/05/2020. TECHNIQUE: Real time compression and duplex Doppler evaluation of the Left upper extremity deep venous system is performed. FINDINGS: The Left subclavian, jugular, axillary, brachial, basilic and cephalic veins are fully compressible where accessible with transducer pressure, and demonstrate no intraluminal thrombus and normal venous waveforms. There is no evidence of deep venous thrombosis.The Right subclavian vein is fully compressible where accessible with transducer pressure, and demonstrates no intraluminal thrombus and normal venous waveforms. IMPRESSION: No evidence of deep venous thrombosis of the Left upper extremity deep vein system. <Electronically signed by Bishop Hull > 01/02/21 [id number]
[2021-01-02] MEDS: CEFEPIME HCL 1 GM in D5W MINI-BAG PLUS 50 ML IV SCH (19:59)
[2021-01-02] MEDS ORDERED: ISOVUE-370 76% 100ML VIAL As Ordered ONE (20:24)
[2021-01-02] MEDS: HumaLOG INSULIN (NovoLOG) PER UNIT SC SCH (21:00)
[2021-01-02 22:00] VITALS: BP 106/64
[2021-01-02] MEDS: DULoxetine 30 MG CAP (CYMBALTA) PO SCH (22:06)
[2021-01-02] MEDS: FERROUS GLUCONATE 324 MG TAB PO SCH (22:06)
[2021-01-02] MEDS: ATORVASTATIN 20 MG TAB PO SCH (22:07)
[2021-01-02] MEDS: SENNA 8.6 MG TAB (SENOKOT) PO SCH (22:07)
[2021-01-02 22:15] VITALS: BP 106/64
--- NOTE | 2021-01-02 23:41 | REPVR ---
PROCEDURE INFORMATION: Exam: CT Abdomen And Pelvis With Contrast Exam date and time: 01/02/2021 9:58 PM Age: 65 years old Clinical indication: Abdominal pain; Generalized TECHNIQUE: Imaging protocol: Computed tomography of the abdomen and pelvis with contrast. Radiation optimization: All CT scans at this facility use at least one of these dose optimization techniques: automated exposure control; mA and/or kV adjustment per patient size (includes targeted exams where dose is matched to clinical indication); or iterative reconstruction. Contrast material: ISOVUE 370; Contrast volume: 41 ml; Contrast route: INTRAVENOUS (IV); COMPARISON: CT ABD/PEL W/IV CONTRAST ONLY 12/30/2020 6:12 PM FINDINGS: Lungs: Motion artifact in the left lung base. Mild infiltrates are noted in the right lung base with moderate right lower lobe atelectasis or consolidation. Liver: The liver at mid clavicular line measures 16.9 cm. Gallbladder and bile ducts: Status post cholecystectomy. Pancreas: Mild pancreatic atrophy for age. Spleen: Normal. No splenomegaly. Adrenal glands: Normal. No mass. Kidneys and ureters: There is a right renal cyst measuring 3.0 cm which is redemonstrated since the prior study with little change. Stomach and bowel: There is a diverticulum projecting from the proximal duodenal sweep. There is colonic diverticulosis without evidence of diverticulitis. There appears to be a colostomy in the region of the umbilicus with associated ostomy hernia and corresponds to the level of the distal sigmoid. There is suture closure at the level of the proximal rectum. Appendix: A normal appendix is seen. Intraperitoneal space: Unremarkable. No free air. No significant fluid collection. Vasculature: The ascending thoracic aorta measures 37 mm. The main pulmonary artery measures 39 mm. There is minimal atherosclerotic calcification of the abdominal aorta. Lymph nodes: Unremarkable. No enlarged lymph nodes. Urinary bladder: There is a Wood catheter in the bladder. Reproductive: Unremarkable as visualized. Bones/joints: Pedicular screws in the thoracic spine suggesting a segmental fusion. Soft tissues: Subcutaneous infiltration along the right lateral abdominal wall. Large decubitus ulcer to the left of midline extending over the caudal sacrum and ending just above the anus. There is a 2nd decubitus ulcer over the left ischial tuberosity with sclerosis and erosion of the ischial tuberosity consistent with osteomyelitis. There is subcutaneous infiltration dorsal and caudal to the right ischial tuberosity. IMPRESSION: 1. Decreased right pleural effusion and decreased left lung base infiltrates since 12/30/2020. There are increased right base infiltrates and increased right lower lobe atelectasis or consolidation, however. 2. Enlarged main pulmonary artery measuring 39 mm which may be seen with pulmonary hypertension. 3. Status post cholecystectomy. 4. Borderline hepatomegaly. 5. Mild pancreatic atrophy for age. 6. Colostomy in the region of the umbilicus at the level of the distal sigmoid which is similar to the prior study. 7. Decubitus ulcers over the distal sacrum and left ischial tuberosity which appear to be packed. There is suggestion of chronic osteomyelitis involving the left ischial tuberosity. 8. Colonic diverticulosis without diverticulitis. Electronically signed by: Sg Ann On 01/02/2021 23:40:41 PM
[2021-01-03] VITALS (8 sets, daily range): BP systolic 87–114; BP diastolic 50–63; O2SAT 96
[2021-01-03 06:10] LABS: HEMATOCRIT 27.5 % (36.0-47.0); HEMOGLOBIN 8.4 g/dl (12.0-15.5); MEAN CORPUSCULAR HGB CONC 30.5 g/dl (32.0-36.5); MEAN CORPUSCULAR VOLUME 81.8 fl (80.0-96.0); PLATELET COUNT, AUTOMATED 369 10^3/uL (150-450); RED BLOOD COUNT 3.36 10^6/uL (4.00-5.40); WHITE BLOOD COUNT 15.1 10^3/uL (4.0-10.0)
--- NOTE | 2021-01-03 06:23 | IPNPDOC ---
Subjective Date Seen The patient was seen on 01/03/21. Subjective Chief Complaint/HPI Patient was seen and examined at bedside this morning. She reports " feeling a little better today" and denies abdominal pain today. Objective Physical Examination Neck Exam: Positive: Other (On trach collar) Neuro Exam: Positive: Other (Paraplegic) Other physical findings General: Lying in bed, no acute distress Head/Neck/Throat: Trachea midline, mucous membranes moist Eyes: Sclera anicteric, no erythema or discharge appreciated bilaterally Thorax: Normal respiratory effort on room air, lungs clear to auscultation bilaterally, no wheezes/rales/rhonchi Cardiovascular: Normal rate, regular rhythm, normal S1, S2; no S3, S4, rubs/gallops/murmurs Abdomen: Bowel sounds present, soft, diffuse tenderness reported with palpation, colostomy noted to have stool and gas Genitourinary: Garcia draining yellow urine Skin: Chronic sacral wound dressing was dry Neurologic: Awake, alert, and oriented. She is able to move her right upper extremity however unable to move her lower extremity as well as left arm. Assessment /Plan Plan/VTE VTE Prophylaxis Ordered?: Yes Plan #Pneumonia -There was purulent sputum with a change in color, leukocytosis, and CT scan findings of right basilar infiltrate that was increased from her previous studies. Therefore we will treat this like pneumonia. She has received cefepime and has stated she feels better. #Leukocytosis -Likely due to pneumonia, however, with her chronic wounds and possible chronic osteomyelitis I do not anticipate her leukocyte count returning back to normal, which likely also explains her elevated ESR. #Abdominal pain -Resolved. No clear etiology of this pain, likely constipation #Left arm swelling -Negative for DVT. This is chronic in nature, she is unable to move this arm and likely is dependent edema. #Hypotensive -Resolved. Continue with hold parameters with diuretics #Paraplegia with chronic trach, stage IV sacral ulcer, abdominal spasms, and chronic pain -Supportive care - garcia care, wound dressing as per protocol (will likely need to be increased to daily). -Symptomatic management for chronic pain - oxycodone, pregabalin; and metoclopramide. #Bladder spasms -Continue solifenacin #Diabetes mellitus with diabetic neuropathy -BG is acceptable range. Continue with sliding scale insulin, and hypoglycemic protocol. -Continue pregabalin for the neuropathy #Hyperlipidemia -Continue atorvastatin #Anxiety and depression -Continue diazepam and duloxetine #Constipation -Continue docusate sodium, Senna, Miralax, and lactulose #GERD -Continue Pantoprazole and Carafate #HFpEF -No signs of acute exacerbation. Continue ambulatory furosemide. #DVT ppx -Lovenox VS, I&O, 24H, Fishbone Vital Signs/I&O Vital Signs Date Time Temp Pulse Resp B/P (MAP) Pulse Ox O2 Delivery O2 Flow Rate FiO2 01/03/21 02:00 98.6 105 19 90/60 (70) 91 Trach Collar 8.0 35 I&O- Last 24 Hours up to 6 AM 01/03/21 06:00 Intake Total 2010 ml Output Total 1200 ml Balance 810 ml Laboratory Data 24H LABS Laboratory Tests 2 01/02/21 06:28: Nucleated Red Blood Cells % (auto) 0.0, Anion Gap 6L, Glomerular Filtration Rate > 60.0, Calcium Level 7.8L, Magnesium Level 1.8 01/02/21 11:49: Bedside Glucose (Misc Panel) 169H 01/02/21 16:27: Bedside Glucose (Misc Panel) 119H 01/02/21 20:15: Bedside Glucose (Misc Panel) 135H 01/03/21 05:23: Nucleated Red Blood Cells % (auto) 0.0 CBC/BMP Laboratory Tests 01/02/21 06:28 01/03/21 05:23 Microbiology Microbiology 12/30/20 Respiratory Virus Panel (PCR) (PARISA) - Final, Complete 12/30/20 Blood Culture - Preliminary, Resulted No Growth after 72 hours. All specime... 12/30/20 Blood Culture - Preliminary, Resulted No Growth after 72 hours. All specime... TAYLA NEVILLE M.D. Jan 03, 2021 06:23
[2021-01-03] MEDS: CEFEPIME HCL 1 GM in D5W MINI-BAG PLUS 50 ML IV SCH ×2 (06:25→21:49)
[2021-01-03 06:28] LABS: BLOOD UREA NITROGEN 10 MG/DL (7-18); CALCIUM LEVEL 7.4 MG/DL (8.8-10.2); CARBON DIOXIDE LEVEL 36 MEQ/L (21-32); CHLORIDE LEVEL 93 MEQ/L (98-107); CREATININE FOR GFR 0.52 MG/DL (0.55-1.30); GLOMERULAR FILTRATION RATE > 60.0 (>45); GLUCOSE, FASTING 106 MG/DL (70-100); MAGNESIUM LEVEL 1.6 MG/DL (1.8-2.4); PHOSPHORUS LEVEL 2.2 MG/DL (2.5-4.9); POTASSIUM SERUM 3.8 MEQ/L (3.5-5.1); SODIUM LEVEL 132 MEQ/L (136-145)
[2021-01-03] MEDS: SUCRALFATE SUSP 1GM/10ML UD PO SCH ×4 (07:30→21:52)
[2021-01-03] MEDS: TORSEMIDE 20 MG TAB PO SCH ×2 (08:15→21:50)
[2021-01-03] MEDS: LACTULOSE 20 GM/30 ML SYRUP UD PO SCH (09:51)
[2021-01-03] MEDS: CYANOCOBALAMIN 250 MCG TABLET PO SCH (09:52)
[2021-01-03] MEDS: ASPIRIN 81MG ENTERIC TABLET PO SCH (09:53)
[2021-01-03] MEDS: SOLIFENACIN 5 MG TAB PO SCH (09:53)
[2021-01-03] MEDS: LEVOTHYROXINE 50MCG TABLET (0.05MG) PO SCH (09:53)
[2021-01-03] MEDS: POTASSIUM CHLORIDE 10 MEQ SR TABLET PO SCH (09:53)
[2021-01-03] MEDS: BACLOFEN 10 MG TAB PO SCH ×3 (09:54→21:52)
[2021-01-03] MEDS: PREGABALIN 100 MG CAP (LYRICA) PO SCH ×2 (09:54→21:51)
[2021-01-03] MEDS: MAGNESIUM OXIDE 400MG TAB (MAG-OX) PO SCH ×3 (09:54→21:50)
[2021-01-03] MEDS: PANTOPRAZOLE 40MG TAB (PROTONIX) PO SCH ×2 (09:54→21:52)
[2021-01-03] MEDS: DOCUSATE SODIUM 100MG CAPSULE PO SCH ×2 (09:54→21:50)
[2021-01-03] MEDS: FOLIC ACID 1 MG TAB PO SCH (09:54)
[2021-01-03] MEDS: ENOXAPARIN 40MG/0.4ML SYRINGE (J1650 PER 10MG) SC SCH (09:55)
[2021-01-03] MEDS: NYSTATIN 100,000 UNITS/GM TOPICAL PWD 15 GM TOP SCH ×2 (10:00→22:01)
[2021-01-03] MEDS: oxyCODONE 5MG TAB PO PRN (14:02)
[2021-01-03] MEDS ORDERED: SODIUM PHOSPHATE INJ 20 MMOL in D5W 250 ML IV ONE (16:00)
[2021-01-03] MEDS: HumaLOG INSULIN (NovoLOG) PER UNIT SC SCH (21:00)
[2021-01-03] MEDS: DULoxetine 30 MG CAP (CYMBALTA) PO SCH (21:51)
[2021-01-03] MEDS: FERROUS GLUCONATE 324 MG TAB PO SCH (21:51)
[2021-01-03] MEDS: SENNA 8.6 MG TAB (SENOKOT) PO SCH (21:52)
[2021-01-03] MEDS: ATORVASTATIN 20 MG TAB PO SCH (21:52)
[2021-01-04 05:39] LABS: HEMATOCRIT 26.6 % (36.0-47.0); HEMOGLOBIN 8.3 g/dl (12.0-15.5); MEAN CORPUSCULAR HEMOGLOBIN 25.4 pg (27.0-33.0); MEAN CORPUSCULAR HGB CONC 31.2 g/dl (32.0-36.5); MEAN CORPUSCULAR VOLUME 81.3 fl (80.0-96.0); PLATELET COUNT, AUTOMATED 351 10^3/uL (150-450); RED BLOOD COUNT 3.27 10^6/uL (4.00-5.40); WHITE BLOOD COUNT 12.4 10^3/uL (4.0-10.0)
[2021-01-04 06:00] VITALS: BP 110/63
[2021-01-04 06:03] LABS: BLOOD UREA NITROGEN 12 MG/DL (7-18); CALCIUM LEVEL 7.4 MG/DL (8.8-10.2); CARBON DIOXIDE LEVEL 32 MEQ/L (21-32); CHLORIDE LEVEL 95 MEQ/L (98-107); CREATININE FOR GFR 0.38 MG/DL (0.55-1.30); GLOMERULAR FILTRATION RATE > 60.0 (>45); GLUCOSE, FASTING 147 MG/DL (70-100); MAGNESIUM LEVEL 1.7 MG/DL (1.8-2.4); PHOSPHORUS LEVEL 3.2 MG/DL (2.5-4.9); SODIUM LEVEL 134 MEQ/L (136-145)
[2021-01-04] MEDS: CEFEPIME HCL 1 GM in D5W MINI-BAG PLUS 50 ML IV SCH ×2 (06:20→18:44)
[2021-01-04] MEDS: SUCRALFATE SUSP 1GM/10ML UD PO SCH ×6 (08:49→22:38)
[2021-01-04] MEDS: oxyCODONE 5MG TAB PO PRN ×2 (08:50→22:41)
[2021-01-04] MEDS: LACTULOSE 20 GM/30 ML SYRUP UD PO SCH ×2 (09:00→10:32)
[2021-01-04] MEDS: NYSTATIN 100,000 UNITS/GM TOPICAL PWD 15 GM TOP SCH ×3 (09:00→22:40)
[2021-01-04] MEDS: PREGABALIN 100 MG CAP (LYRICA) PO SCH ×2 (10:32→22:37)
[2021-01-04] MEDS: FOLIC ACID 1 MG TAB PO SCH (10:32)
[2021-01-04] MEDS: DOCUSATE SODIUM 100MG CAPSULE PO SCH ×2 (10:33→22:38)
[2021-01-04] MEDS: CYANOCOBALAMIN 250 MCG TABLET PO SCH (10:33)
[2021-01-04] MEDS: MAGNESIUM OXIDE 400MG TAB (MAG-OX) PO SCH ×3 (10:33→22:39)
[2021-01-04] MEDS: BACLOFEN 10 MG TAB PO SCH ×3 (10:33→22:38)
[2021-01-04] MEDS: TORSEMIDE 20 MG TAB PO SCH ×2 (10:34→21:00)
[2021-01-04] MEDS: PANTOPRAZOLE 40MG TAB (PROTONIX) PO SCH ×2 (10:34→22:37)
[2021-01-04] MEDS: POTASSIUM CHLORIDE 10 MEQ SR TABLET PO SCH (10:34)
[2021-01-04] MEDS: ASPIRIN 81MG ENTERIC TABLET PO SCH (10:34)
[2021-01-04] MEDS: SOLIFENACIN 5 MG TAB PO SCH (10:35)
[2021-01-04] MEDS: LEVOTHYROXINE 50MCG TABLET (0.05MG) PO SCH (10:35)
[2021-01-04] MEDS: ENOXAPARIN 40MG/0.4ML SYRINGE (J1650 PER 10MG) SC SCH (10:36)
[2021-01-04 14:00] VITALS: BP 107/64
--- NOTE | 2021-01-04 20:20 | IPNPDOC ---
Subjective Date Seen The patient was seen on 01/04/21. Subjective Chief Complaint/HPI Patient seen and examined at bedside this morning. She had no new complaints. She denies nausea, vomiting, abdominal pain Objective Physical Examination Neck Exam: Positive: Other Neuro Exam: Positive: Other Other physical findings General: Lying in bed, no acute distress Head/Neck/Throat: Trachea midline, mucous membranes moist Eyes: Sclera anicteric, no erythema or discharge appreciated bilaterally Thorax: Normal respiratory effort on room air, lungs clear to auscultation bilaterally, no wheezes/rales/rhonchi Cardiovascular: Normal rate, regular rhythm, normal S1, S2; no S3, S4, rubs/gallops/murmurs Abdomen: Bowel sounds present, soft, diffuse tenderness reported with palpation, colostomy noted to have stool and gas Genitourinary: Garcia draining yellow urine Skin: Chronic sacral wound dressing was dry Neurologic: Awake, alert, and oriented. She is able to move her right upper extremity however unable to move her lower extremity as well as left arm. Assessment /Plan Plan/VTE VTE Prophylaxis Ordered?: Yes Plan #Pneumonia -Leukocytosis, and there was purulent sputum that was suctioned from her ET tube. Will have a chest x-ray done and start cefepime. However, with her chronic wounds I do not anticipate her leukocyte count returning back to normal she likely also explains the elevated ESR. #Abdominal pain -Follow-up on CT scan of the abdomen. #Left arm swelling -We will obtain an ultrasound of the left arm to rule out a DVT #Hypotensive -She was bolus 750 cc. Hold parameters made for her furosemide. #Paraplegia with chronic trach, stage IV sacral ulcer, abdominal spasms, and chronic pain -Supportive care - garcia care, wound dressing as per protocol (will likely need to be increased to daily). -Symptomatic management for chronic pain - oxycodone, pregabalin; and metoclopramide. #Bladder spasms -Continue solifenacin #Diabetes mellitus with diabetic neuropathy -BG is acceptable range. Continue with sliding scale insulin, and hypoglycemic protocol. -Continue pregabalin for the neuropathy #Hyperlipidemia -Continue atorvastatin #Anxiety and depression -Continue diazepam and duloxetine #Constipation -Continue docusate sodium, Senna, Miralax, and lactulose #GERD -Continue Pantoprazole and Carafate #HFpEF -No signs of acute exacerbation. Continue ambulatory furosemide. #DVT ppx -Lovenox VS, I&O, 24H, Fishbone Vital Signs/I&O Vital Signs Date Time Temp Pulse Resp B/P (MAP) Pulse Ox O2 Delivery O2 Flow Rate FiO2 01/04/21 14:00 98.1 97 20 107/64 (78) 98 Room Air 8.0 35 I&O- Last 24 Hours up to 6 AM 01/04/21 06:00 Intake Total 1180 ml Output Total 1775 ml Balance -595 ml Laboratory Data 24H LABS Laboratory Tests 2 01/03/21 21:19: Bedside Glucose (Misc Panel) 163H 01/04/21 05:29: Nucleated Red Blood Cells % (auto) 0.0, Anion Gap 7L, Glomerular Filtration Rate > 60.0, Calcium Level 7.4L, Phosphorus Level 3.2#, Magnesium Level 1.7L 01/04/21 11:37: Bedside Glucose (Misc Panel) 122H 01/04/21 17:04: Bedside Glucose (Misc Panel) 110 CBC/BMP Laboratory Tests 01/04/21 05:29 Microbiology Microbiology 01/03/21 Gram Stain - Final, Resulted 01/03/21 Sputum Culture, Resulted Pending 12/30/20 Respiratory Virus Panel (PCR) (PARISA) - Final, Complete 12/30/20 Blood Culture - Final, Complete NO GROWTH AFTER 5 DAYS 12/30/20 Blood Culture - Final, Complete NO GROWTH AFTER 5 DAYS TAYLA NEVILLE M.D. Jan 04, 2021 20:19
[2021-01-04] MEDS: HumaLOG INSULIN (NovoLOG) PER UNIT SC SCH (21:00)
[2021-01-04 22:00] VITALS: BP 108/57
[2021-01-04] MEDS: SENNA 8.6 MG TAB (SENOKOT) PO SCH (22:38)
[2021-01-04] MEDS: ATORVASTATIN 20 MG TAB PO SCH (22:38)
[2021-01-04] MEDS: DULoxetine 30 MG CAP (CYMBALTA) PO SCH (22:40)
[2021-01-04] MEDS: FERROUS GLUCONATE 324 MG TAB PO SCH (22:40)
[2021-01-04] MEDS: diazePAM 2 MG TAB PO PRN (22:42)
[2021-01-04] MEDS: METOCLOPRAMIDE 10 MG TAB PO PRN (23:04)
[2021-01-04] MEDS: ONDANSETRON 4MG/2ML VIAL IV PRN (23:15)
[2021-01-05 06:00] VITALS: BP 102/56
[2021-01-05] MEDS: CEFEPIME HCL 1 GM in D5W MINI-BAG PLUS 50 ML IV SCH ×2 (06:51→17:00)
[2021-01-05 06:52] LABS: HEMATOCRIT 26.7 % (36.0-47.0); HEMOGLOBIN 8.2 g/dl (12.0-15.5); MEAN CORPUSCULAR HEMOGLOBIN 24.8 pg (27.0-33.0); MEAN CORPUSCULAR HGB CONC 30.7 g/dl (32.0-36.5); MEAN CORPUSCULAR VOLUME 80.7 fl (80.0-96.0); PLATELET COUNT, AUTOMATED 429 10^3/uL (150-450); RED BLOOD COUNT 3.31 10^6/uL (4.00-5.40); WHITE BLOOD COUNT 9.9 10^3/uL (4.0-10.0)
[2021-01-05 07:29] LABS: BLOOD UREA NITROGEN 14 MG/DL (7-18); CALCIUM LEVEL 7.3 MG/DL (8.8-10.2); CARBON DIOXIDE LEVEL 36 MEQ/L (21-32); CHLORIDE LEVEL 94 MEQ/L (98-107); GLOMERULAR FILTRATION RATE > 60.0 (>45); GLUCOSE, FASTING 94 MG/DL (70-100); MAGNESIUM LEVEL 1.8 MG/DL (1.8-2.4); PHOSPHORUS LEVEL 3.4 MG/DL (2.5-4.9); POTASSIUM SERUM 3.4 MEQ/L (3.5-5.1); SODIUM LEVEL 132 MEQ/L (136-145)
[2021-01-05] MEDS ORDERED: POTASSIUM CHLORIDE 10 MEQ SR TABLET PO ONE (10:00)
[2021-01-05] MEDS: LACTULOSE 20 GM/30 ML SYRUP UD PO SCH (10:40)
[2021-01-05] MEDS: PREGABALIN 100 MG CAP (LYRICA) PO SCH ×2 (10:40→22:57)
[2021-01-05] MEDS: ENOXAPARIN 40MG/0.4ML SYRINGE (J1650 PER 10MG) SC SCH (10:40)
[2021-01-05] MEDS: PANTOPRAZOLE 40MG TAB (PROTONIX) PO SCH ×2 (10:41→22:58)
[2021-01-05] MEDS: POTASSIUM CHLORIDE 10 MEQ SR TABLET PO SCH (10:41)
[2021-01-05] MEDS: ASPIRIN 81MG ENTERIC TABLET PO SCH (10:41)
[2021-01-05] MEDS: FOLIC ACID 1 MG TAB PO SCH (10:41)
[2021-01-05] MEDS: BACLOFEN 10 MG TAB PO SCH ×3 (10:41→22:59)
[2021-01-05] MEDS: DOCUSATE SODIUM 100MG CAPSULE PO SCH ×2 (10:42→22:58)
[2021-01-05] MEDS: MAGNESIUM OXIDE 400MG TAB (MAG-OX) PO SCH ×3 (10:42→22:58)
[2021-01-05] MEDS: LEVOTHYROXINE 50MCG TABLET (0.05MG) PO SCH (10:42)
[2021-01-05] MEDS: CYANOCOBALAMIN 250 MCG TABLET PO SCH (10:42)
[2021-01-05] MEDS: SUCRALFATE SUSP 1GM/10ML UD PO SCH ×4 (10:43→22:57)
[2021-01-05] MEDS: SOLIFENACIN 5 MG TAB PO SCH (10:50)
[2021-01-05] MEDS: NYSTATIN 100,000 UNITS/GM TOPICAL PWD 15 GM TOP SCH ×2 (10:51→22:59)
[2021-01-05] MEDS: TORSEMIDE 20 MG TAB PO SCH ×2 (10:51→22:58)
[2021-01-05] MEDS: oxyCODONE 5MG TAB PO PRN ×2 (11:11→23:17)
[2021-01-05 14:00] VITALS: BP 111/70
--- NOTE | 2021-01-05 16:04 | IPNPDOC ---
Subjective Date Seen The patient was seen on 01/05/21. Subjective Chief Complaint/HPI Patient was seen and examined at bedside this morning. She endorsed having mild abdominal discomfort that she endorsed from her second consumption of milk. Otherwise, she denied chest pain, shortness of breath, nausea and vomiting. Objective Physical Examination Neck Exam: Positive: Other Neuro Exam: Positive: Other Other physical findings General: Lying in bed, no acute distress Head/Neck/Throat: Trachea midline, mucous membranes moist Eyes: Sclera anicteric, no erythema or discharge appreciated bilaterally Thorax: Normal respiratory effort on room air, lungs clear to auscultation bilaterally, no wheezes/rales/rhonchi Cardiovascular: Normal rate, regular rhythm, normal S1, S2; no S3, S4, rubs/gallops/murmurs Abdomen: Bowel sounds present, soft, no tenderness with palpation, colostomy noted to have stool and gas, ostomy site looks healthy Genitourinary: Garcia draining yellow urine Skin: Chronic sacral wound dressing was dry Neurologic: Awake, alert, and oriented. She is able to move her right upper extremity however unable to move her lower extremity as well as left arm. Assessment /Plan Plan/VTE VTE Prophylaxis Ordered?: Yes Plan #Pneumonia -There was purulent sputum with a change in color, leukocytosis, and CT scan findings of right basilar infiltrate that was increased from her previous studies. Therefore we will treat this like pneumonia. She has received cefepime and has stated she feels better. #Leukocytosis -To my surprise, despite her having chronic wounds and possibly chronic osteomyelitis her leukocytosis has resolved. This was likely due to her pneumonia. #Abdominal pain -Resolved. #Left arm swelling -Negative for DVT. This is chronic in nature, she is unable to move this arm and likely is dependent edema. #Hypotensive -Resolved. Continue with hold parameters with diuretics #Paraplegia with chronic trach, stage IV sacral ulcer, abdominal spasms, and chronic pain -Supportive care - garcia care, wound dressing as per protocol (will likely need to be increased to daily). -Symptomatic management for chronic pain - oxycodone, pregabalin; and metoclopramide. #Bladder spasms -Continue solifenacin #Diabetes mellitus with diabetic neuropathy -BG is acceptable range. Continue with sliding scale insulin, and hypoglycemic protocol. -Continue pregabalin for the neuropathy #Hyperlipidemia -Continue atorvastatin #Anxiety and depression -Continue diazepam and duloxetine #Constipation -Continue docusate sodium, Senna, Miralax, and lactulose #GERD -Continue Pantoprazole and Carafate #HFpEF -No signs of acute exacerbation. Continue ambulatory diuretics #DVT ppx -Lovenox VS, I&O, 24H, Fishbone Vital Signs/I&O Vital Signs Date Time Temp Pulse Resp B/P (MAP) Pulse Ox O2 Delivery O2 Flow Rate FiO2 01/04/21 23:11 16 Trach Collar 8.0 01/04/21 22:00 98.1 101 108/57 (74) 95 35 I&O- Last 24 Hours up to 6 AM 01/05/21 06:00 Intake Total 1610 ml Output Total 675 ml Balance 935 ml Laboratory Data 24H LABS Laboratory Tests 2 01/04/21 11:37: Bedside Glucose (Misc Panel) 122H 01/04/21 17:04: Bedside Glucose (Misc Panel) 110 01/04/21 20:51: Bedside Glucose (Misc Panel) 134H Microbiology Microbiology 01/03/21 Gram Stain - Final, Resulted 01/03/21 Sputum Culture - Preliminary, Resulted Yeast Like Organism 12/30/20 Respiratory Virus Panel (PCR) (PARISA) - Final, Complete 12/30/20 Blood Culture - Final, Complete NO GROWTH AFTER 5 DAYS 12/30/20 Blood Culture - Final, Complete NO GROWTH AFTER 5 DAYS TAYLA NEVILLE M.D. Jan 05, 2021 06:21
[2021-01-05] MEDS: diazePAM 2 MG TAB PO PRN (16:58)
[2021-01-05] MEDS: HumaLOG INSULIN (NovoLOG) PER UNIT SC SCH (21:00)
[2021-01-05 22:00] VITALS: BP 112/69
[2021-01-05] MEDS: SENNA 8.6 MG TAB (SENOKOT) PO SCH (22:58)
[2021-01-05] MEDS: DULoxetine 30 MG CAP (CYMBALTA) PO SCH (22:58)
[2021-01-05] MEDS: FERROUS GLUCONATE 324 MG TAB PO SCH (22:58)
[2021-01-05] MEDS: ATORVASTATIN 20 MG TAB PO SCH (22:59)
[2021-01-05] MEDS: METOCLOPRAMIDE 10 MG TAB PO PRN (22:59)
[2021-01-06 06:00] VITALS: BP 110/70
[2021-01-06] MEDS: CEFEPIME HCL 1 GM in D5W MINI-BAG PLUS 50 ML IV SCH ×2 (06:27→18:19)
[2021-01-06 07:45] LABS: HEMATOCRIT 27.8 % (36.0-47.0); HEMOGLOBIN 8.5 g/dl (12.0-15.5); MEAN CORPUSCULAR HEMOGLOBIN 24.8 pg (27.0-33.0); MEAN CORPUSCULAR HGB CONC 30.6 g/dl (32.0-36.5); PLATELET COUNT, AUTOMATED 382 10^3/uL (150-450); RED BLOOD COUNT 3.43 10^6/uL (4.00-5.40); WHITE BLOOD COUNT 9.4 10^3/uL (4.0-10.0)
[2021-01-06 08:02] LABS: BLOOD UREA NITROGEN 11 MG/DL (7-18); CALCIUM LEVEL 7.6 MG/DL (8.8-10.2); CARBON DIOXIDE LEVEL 34 MEQ/L (21-32); CHLORIDE LEVEL 94 MEQ/L (98-107); CREATININE FOR GFR 0.41 MG/DL (0.55-1.30); GLOMERULAR FILTRATION RATE > 60.0 (>45); GLUCOSE, FASTING 91 MG/DL (70-100); MAGNESIUM LEVEL 1.9 MG/DL (1.8-2.4); PHOSPHORUS LEVEL 3.3 MG/DL (2.5-4.9); POTASSIUM SERUM 3.6 MEQ/L (3.5-5.1); SODIUM LEVEL 135 MEQ/L (136-145)
[2021-01-06 08:08] LABS: ERYTHROCYTE SEDIMENTATION RATE 71 mm/hr (0-30)
[2021-01-06] MEDS: TORSEMIDE 20 MG TAB PO SCH ×2 (09:00→21:00)
[2021-01-06] MEDS: SUCRALFATE SUSP 1GM/10ML UD PO SCH ×4 (09:39→23:20)
[2021-01-06] MEDS: ENOXAPARIN 40MG/0.4ML SYRINGE (J1650 PER 10MG) SC SCH (09:39)
[2021-01-06] MEDS: LACTULOSE 20 GM/30 ML SYRUP UD PO SCH (09:39)
[2021-01-06] MEDS: CYANOCOBALAMIN 250 MCG TABLET PO SCH (09:40)
[2021-01-06] MEDS: POTASSIUM CHLORIDE 10 MEQ SR TABLET PO SCH (09:40)
[2021-01-06] MEDS: DOCUSATE SODIUM 100MG CAPSULE PO SCH ×2 (09:41→23:21)
[2021-01-06] MEDS: PREGABALIN 100 MG CAP (LYRICA) PO SCH ×2 (09:41→23:22)
[2021-01-06] MEDS: FOLIC ACID 1 MG TAB PO SCH (09:41)
[2021-01-06] MEDS: MAGNESIUM OXIDE 400MG TAB (MAG-OX) PO SCH ×3 (09:41→23:21)
[2021-01-06] MEDS: BACLOFEN 10 MG TAB PO SCH ×3 (09:42→23:21)
[2021-01-06] MEDS: SOLIFENACIN 5 MG TAB PO SCH (09:42)
[2021-01-06] MEDS: PANTOPRAZOLE 40MG TAB (PROTONIX) PO SCH ×2 (09:43→23:21)
[2021-01-06] MEDS: LEVOTHYROXINE 50MCG TABLET (0.05MG) PO SCH (09:43)
[2021-01-06] MEDS: ASPIRIN 81MG ENTERIC TABLET PO SCH (09:43)
[2021-01-06] MEDS: NYSTATIN 100,000 UNITS/GM TOPICAL PWD 15 GM TOP SCH ×2 (09:44→23:23)
[2021-01-06] MEDS: diazePAM 2 MG TAB PO PRN ×2 (10:16→23:21)
--- NOTE | 2021-01-06 13:30 | IPNPDOC ---
Subjective Date Seen The patient was seen on 01/06/21. Subjective Chief Complaint/HPI Patient seen and examined at bedside this morning. She was up and watching television, and had no new complaints. Objective Physical Examination Neck Exam: Positive: Other Neuro Exam: Positive: Other Other physical findings General: Lying in bed, no acute distress Head/Neck/Throat: Trachea midline, mucous membranes moist Eyes: Sclera anicteric, no erythema or discharge appreciated bilaterally Thorax: Normal respiratory effort on room air, lungs clear to auscultation bilaterally, no wheezes/rales/rhonchi Cardiovascular: Normal rate, regular rhythm, normal S1, S2; no S3, S4, rubs/gallops/murmurs Abdomen: Bowel sounds present, soft, no tenderness with palpation, colostomy noted to have stool and gas, ostomy site looks healthy Genitourinary: Garcia draining yellow urine Skin: Chronic sacral wound dressing was dry Neurologic: Awake, alert, and oriented. She is able to move her right upper extremity however unable to move her lower extremity as well as left arm. Assessment /Plan Plan/VTE VTE Prophylaxis Ordered?: Yes Plan #Pneumonia -There was purulent sputum with a change in color, leukocytosis, and CT scan findings of right basilar infiltrate that was increased from her previous studies. Therefore we will treat this like pneumonia. She has received cefepime, and there is also been clinical improvement. We'll put a stop date to cefepime for 01/08. #Leukocytosis -To my surprise, despite her having chronic wounds and possibly chronic osteomyelitis her leukocytosis has resolved. This was likely due to her pneumonia. -ESR this is likely due to her chronic wounds and osteomyelitis. #Abdominal pain -Resolved. #Left arm swelling -Negative for DVT. This is chronic in nature, she is unable to move this arm a nd likely is dependent edema. #Hypotensive -Resolved. Continue with hold parameters with diuretics #Paraplegia with chronic trach, stage IV sacral ulcer, abdominal spasms, and chronic pain -Supportive care - gracia care, wound dressing as per protocol (will likely need to be increased to daily). -Symptomatic management for chronic pain - oxycodone, pregabalin; and metoclopramide. #Bladder spasms -Continue solifenacin #Diabetes mellitus with diabetic neuropathy -BG is acceptable range. Continue with sliding scale insulin, and hypoglycemic protocol. -Continue pregabalin for the neuropathy #Hyperlipidemia -Continue atorvastatin #Anxiety and depression -Continue diazepam and duloxetine #Constipation -Continue docusate sodium, Senna, Miralax, and lactulose #GERD -Continue Pantoprazole and Carafate #HFpEF -No signs of acute exacerbation. Continue ambulatory diuretics if blood pressure allows. #DVT ppx -Lovenox VS, I&O, 24H, Fishbone Vital Signs/I&O Vital Signs Date Time Temp Pulse Resp B/P (MAP) Pulse Ox O2 Delivery O2 Flow Rate FiO2 01/05/21 23:47 16 Trach Collar 01/05/21 23:17 8.0 35 01/05/21 22:00 96.3 97 112/69 (83) 96 I&O- Last 24 Hours up to 6 AM 01/06/21 06:00 Intake Total 1669 ml Output Total 2450 ml Balance -781 ml Laboratory Data 24H LABS Laboratory Tests 2 01/05/21 11:32: Bedside Glucose (Misc Panel) 134H 01/05/21 16:33: Bedside Glucose (Misc Panel) 104 01/05/21 20:13: Bedside Glucose (Misc Panel) 98 Microbiology Microbiology 01/03/21 Gram Stain - Final, Complete 01/03/21 Sputum Culture - Final, Complete Klebsiella Pneumoniae Yeast Like Organism 12/30/20 Respiratory Virus Panel (PCR) (PARISA) - Final, Complete 12/30/20 Blood Culture - Final, Complete NO GROWTH AFTER 5 DAYS 12/30/20 Blood Culture - Final, Complete NO GROWTH AFTER 5 DAYS TAYLA NEVILLE M.D. Jan 06, 2021 06:29
[2021-01-06 14:00] VITALS: BP 110/62
[2021-01-06] MEDS: oxyCODONE 5MG TAB PO PRN (15:58)
[2021-01-06] MEDS: HumaLOG INSULIN (NovoLOG) PER UNIT SC SCH (21:00)
[2021-01-06 22:00] VITALS: BP 107/62
[2021-01-06] MEDS: FERROUS GLUCONATE 324 MG TAB PO SCH (23:21)
[2021-01-06] MEDS: DULoxetine 30 MG CAP (CYMBALTA) PO SCH (23:21)
[2021-01-06] MEDS: METOCLOPRAMIDE 10 MG TAB PO PRN (23:22)
[2021-01-06] MEDS: SENNA 8.6 MG TAB (SENOKOT) PO SCH (23:22)
[2021-01-06] MEDS: ATORVASTATIN 20 MG TAB PO SCH (23:22)
[2021-01-07 00:56] VITALS: O2SAT 95
[2021-01-07 06:00] VITALS: BP 111/58
[2021-01-07] MEDS: CEFEPIME HCL 1 GM in D5W MINI-BAG PLUS 50 ML IV SCH ×2 (06:52→17:10)
[2021-01-07] MEDS: oxyCODONE 5MG TAB PO PRN ×2 (06:52→20:08)
[2021-01-07 07:07] LABS: BLOOD UREA NITROGEN 11 MG/DL (7-18); CALCIUM LEVEL 7.7 MG/DL (8.8-10.2); CARBON DIOXIDE LEVEL 32 MEQ/L (21-32); CHLORIDE LEVEL 97 MEQ/L (98-107); GLOMERULAR FILTRATION RATE > 60.0 (>45); GLUCOSE, FASTING 114 MG/DL (70-100); MAGNESIUM LEVEL 2.2 MG/DL (1.8-2.4); PHOSPHORUS LEVEL 2.9 MG/DL (2.5-4.9); POTASSIUM SERUM 4.8 MEQ/L (3.5-5.1); SODIUM LEVEL 133 MEQ/L (136-145)
[2021-01-07] MEDS ORDERED: POTASSIUM CHLORIDE 10 MEQ SR TABLET PO SCH (09:00)
[2021-01-07] MEDS: ENOXAPARIN 40MG/0.4ML SYRINGE (J1650 PER 10MG) SC SCH (09:13)
[2021-01-07] MEDS: LACTULOSE 20 GM/30 ML SYRUP UD PO SCH (09:13)
[2021-01-07] MEDS: SUCRALFATE SUSP 1GM/10ML UD PO SCH ×4 (09:13→21:03)
[2021-01-07] MEDS: SOLIFENACIN 5 MG TAB PO SCH (09:14)
[2021-01-07] MEDS: POTASSIUM CHLORIDE 10 MEQ SR TABLET PO SCH (09:14)
[2021-01-07] MEDS: FOLIC ACID 1 MG TAB PO SCH (09:14)
[2021-01-07] MEDS: LEVOTHYROXINE 50MCG TABLET (0.05MG) PO SCH (09:14)
[2021-01-07] MEDS: PREGABALIN 100 MG CAP (LYRICA) PO SCH ×2 (09:14→21:04)
[2021-01-07] MEDS: BACLOFEN 10 MG TAB PO SCH ×3 (09:15→21:04)
[2021-01-07] MEDS: CYANOCOBALAMIN 250 MCG TABLET PO SCH (09:15)
[2021-01-07] MEDS: DOCUSATE SODIUM 100MG CAPSULE PO SCH ×2 (09:15→21:03)
[2021-01-07] MEDS: MAGNESIUM OXIDE 400MG TAB (MAG-OX) PO SCH (09:15)
[2021-01-07] MEDS: TORSEMIDE 20 MG TAB PO SCH ×2 (09:15→21:00)
[2021-01-07] MEDS: PANTOPRAZOLE 40MG TAB (PROTONIX) PO SCH ×2 (09:15→21:04)
[2021-01-07] MEDS: ASPIRIN 81MG ENTERIC TABLET PO SCH (09:15)
[2021-01-07] MEDS: NYSTATIN 100,000 UNITS/GM TOPICAL PWD 15 GM TOP SCH ×2 (09:16→21:00)
[2021-01-07 14:00] VITALS: BP 109/58
[2021-01-07] MEDS: HumaLOG INSULIN (NovoLOG) PER UNIT SC SCH (21:00)
[2021-01-07] MEDS: DULoxetine 30 MG CAP (CYMBALTA) PO SCH (21:03)
[2021-01-07] MEDS: SENNA 8.6 MG TAB (SENOKOT) PO SCH (21:04)
[2021-01-07] MEDS: FERROUS GLUCONATE 324 MG TAB PO SCH (21:04)
[2021-01-07] MEDS: ATORVASTATIN 20 MG TAB PO SCH (21:04)
[2021-01-07] MEDS: METOCLOPRAMIDE 10 MG TAB PO PRN (21:05)
[2021-01-07 21:14] VITALS: BP 105/66
[2021-01-08] MEDS: CEFEPIME HCL 1 GM in D5W MINI-BAG PLUS 50 ML IV SCH (05:58)
[2021-01-08 06:00] VITALS: BP 107/61
[2021-01-08] MEDS: SUCRALFATE SUSP 1GM/10ML UD PO SCH ×4 (07:30→21:37)
[2021-01-08] MEDS: oxyCODONE 5MG TAB PO PRN ×2 (08:49→21:39)
[2021-01-08] MEDS: TORSEMIDE 20 MG TAB PO SCH ×2 (09:00→21:00)
[2021-01-08] MEDS: SOLIFENACIN 5 MG TAB PO SCH (09:59)
[2021-01-08] MEDS: ENOXAPARIN 40MG/0.4ML SYRINGE (J1650 PER 10MG) SC SCH (09:59)
[2021-01-08] MEDS: CYANOCOBALAMIN 250 MCG TABLET PO SCH (09:59)
[2021-01-08] MEDS: ASPIRIN 81MG ENTERIC TABLET PO SCH (09:59)
[2021-01-08] MEDS: LEVOTHYROXINE 50MCG TABLET (0.05MG) PO SCH (10:00)
[2021-01-08] MEDS: PANTOPRAZOLE 40MG TAB (PROTONIX) PO SCH ×2 (10:00→21:38)
[2021-01-08] MEDS: FOLIC ACID 1 MG TAB PO SCH (10:00)
[2021-01-08] MEDS: PREGABALIN 100 MG CAP (LYRICA) PO SCH ×2 (10:00→21:38)
[2021-01-08] MEDS: BACLOFEN 10 MG TAB PO SCH ×3 (10:00→21:38)
[2021-01-08] MEDS: DOCUSATE SODIUM 100MG CAPSULE PO SCH ×2 (10:00→21:37)
[2021-01-08] MEDS: NYSTATIN 100,000 UNITS/GM TOPICAL PWD 15 GM TOP SCH ×2 (10:01→21:00)
[2021-01-08 10:05] LABS: BASO # 0.1 10^3/uL (0.0-0.2); BASO % 1.4 % (0.0-1.0); EOS # 1.3 10^3/uL (0.0-0.5); EOS % 13.2 % (0.0-3.0); HEMATOCRIT 27.1 % (36.0-47.0); HEMOGLOBIN 8.2 g/dl (12.0-15.5); LYMPH # 1.9 10^3/uL (1.5-5.0); LYMPH % 19.7 % (24.0-44.0); MEAN CORPUSCULAR HGB CONC 30.3 g/dl (32.0-36.5); MEAN CORPUSCULAR VOLUME 82.6 fl (80.0-96.0); MONO # 1.3 10^3/uL (0.0-0.8); MONO % 13.2 % (2.0-8.0); NEUTROPHILS # 4.8 10^3/uL (1.5-8.5); NEUTROPHILS % 51.1 % (36.0-66.0); PLATELET COUNT, AUTOMATED 429 10^3/uL (150-450); RED BLOOD COUNT 3.28 10^6/uL (4.00-5.40); WHITE BLOOD COUNT 9.5 10^3/uL (4.0-10.0)
[2021-01-08 10:28] LABS: BLOOD UREA NITROGEN 11 MG/DL (7-18); CALCIUM LEVEL 8.1 MG/DL (8.8-10.2); CARBON DIOXIDE LEVEL 33 MEQ/L (21-32); CHLORIDE LEVEL 96 MEQ/L (98-107); CREATININE FOR GFR 0.38 MG/DL (0.55-1.30); GLOMERULAR FILTRATION RATE > 60.0 (>45); GLUCOSE, FASTING 119 MG/DL (70-100); POTASSIUM SERUM 4.2 MEQ/L (3.5-5.1); SODIUM LEVEL 134 MEQ/L (136-145)
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
[2021-01-08 11:51] LABS: C REACTIVE PROTEIN QUANTITATIV 3.62 MG/DL (0.00-0.30)
[2021-01-08] MEDS: POLYVINYL ALCOHOL OPHTH SOLN 15 ML(LIQUITEARS) OU PRN ×2 (16:02→21:38)
[2021-01-08] MEDS: SODIUM CHLORIDE NASAL 0.65% SPRAY BTL (OCEAN) PRN ×2 (16:03→21:38)
[2021-01-08] MEDS: LevoFLOXacin 750 MG TABLET PO SCH (18:19)
[2021-01-08] MEDS: HumaLOG INSULIN (NovoLOG) PER UNIT SC SCH (21:00)
[2021-01-08 21:26] VITALS: BP 99/70
[2021-01-08 21:30] VITALS: BP 108/58
[2021-01-08] MEDS: FERROUS GLUCONATE 324 MG TAB PO SCH (21:37)
[2021-01-08] MEDS: DULoxetine 30 MG CAP (CYMBALTA) PO SCH (21:37)
[2021-01-08] MEDS: ATORVASTATIN 20 MG TAB PO SCH (21:38)
[2021-01-08] MEDS: SENNA 8.6 MG TAB (SENOKOT) PO SCH (21:38)
[2021-01-09] MEDS: ACETAMINOPHEN TAB 650MG DOSE (2X325MG) PO PRN ×3 (03:23→18:04)
[2021-01-09] MEDS: diazePAM 2 MG TAB PO PRN ×2 (03:23→15:16)
[2021-01-09 06:00] VITALS: BP 101/66
[2021-01-09 06:33] LABS: BASO # 0.1 10^3/uL (0.0-0.2); BASO % 1.1 % (0.0-1.0); EOS # 1.1 10^3/uL (0.0-0.5); EOS % 10.9 % (0.0-3.0); HEMATOCRIT 24.8 % (36.0-47.0); HEMOGLOBIN 7.6 g/dl (12.0-15.5); LYMPH # 1.8 10^3/uL (1.5-5.0); LYMPH % 17.9 % (24.0-44.0); MEAN CORPUSCULAR HEMOGLOBIN 24.8 pg (27.0-33.0); MEAN CORPUSCULAR HGB CONC 30.6 g/dl (32.0-36.5); MEAN CORPUSCULAR VOLUME 80.8 fl (80.0-96.0); MONO # 1.3 10^3/uL (0.0-0.8); NEUTROPHILS # 5.7 10^3/uL (1.5-8.5); NEUTROPHILS % 55.9 % (36.0-66.0); PLATELET COUNT, AUTOMATED 421 10^3/uL (150-450); RED BLOOD COUNT 3.07 10^6/uL (4.00-5.40); WHITE BLOOD COUNT 10.2 10^3/uL (4.0-10.0)
[2021-01-09 07:02] LABS: BLOOD UREA NITROGEN 9 MG/DL (7-18); CALCIUM LEVEL 7.7 MG/DL (8.8-10.2); CARBON DIOXIDE LEVEL 33 MEQ/L (21-32); CHLORIDE LEVEL 96 MEQ/L (98-107); CREATININE FOR GFR 0.31 MG/DL (0.55-1.30); GLOMERULAR FILTRATION RATE > 60.0 (>45); GLUCOSE, FASTING 87 MG/DL (70-100); POTASSIUM SERUM 4.3 MEQ/L (3.5-5.1); SODIUM LEVEL 133 MEQ/L (136-145)
[2021-01-09] MEDS: SUCRALFATE SUSP 1GM/10ML UD PO SCH ×4 (08:44→22:14)
[2021-01-09] MEDS: DOCUSATE SODIUM 100MG CAPSULE PO SCH ×2 (08:45→22:14)
[2021-01-09] MEDS: CYANOCOBALAMIN 250 MCG TABLET PO SCH (08:45)
[2021-01-09] MEDS: ASPIRIN 81MG ENTERIC TABLET PO SCH (08:45)
[2021-01-09] MEDS: PANTOPRAZOLE 40MG TAB (PROTONIX) PO SCH ×2 (08:45→22:15)
[2021-01-09] MEDS: LEVOTHYROXINE 50MCG TABLET (0.05MG) PO SCH (08:45)
[2021-01-09] MEDS: ENOXAPARIN 40MG/0.4ML SYRINGE (J1650 PER 10MG) SC SCH (08:45)
[2021-01-09] MEDS: PREGABALIN 100 MG CAP (LYRICA) PO SCH ×2 (08:45→22:15)
[2021-01-09] MEDS: BACLOFEN 10 MG TAB PO SCH ×3 (08:45→22:15)
[2021-01-09] MEDS: SOLIFENACIN 5 MG TAB PO SCH (08:45)
[2021-01-09] MEDS: FOLIC ACID 1 MG TAB PO SCH (08:45)
[2021-01-09] MEDS: TORSEMIDE 20 MG TAB PO SCH ×2 (08:46→22:05)
[2021-01-09] MEDS: NYSTATIN 100,000 UNITS/GM TOPICAL PWD 15 GM TOP SCH ×2 (08:46→22:06)
[2021-01-09 08:47] VITALS: BP 110/64
[2021-01-09] MEDS: oxyCODONE 5MG TAB PO PRN ×2 (10:38→22:46)
--- NOTE | 2021-01-09 11:11 | IPNPDOC ---
Subjective Date Seen The patient was seen on 01/07/21. Subjective Chief Complaint/HPI Patient was seen and examined at bedside this morning. She complains of intermittent mild abdominal pain after she eats breakfast. She denies nausea and vomiting. Otherwise, she has no new complaints Objective Physical Examination Neck Exam: Positive: Other Neuro Exam: Positive: Other Other physical findings General: Lying in bed, no acute distress Head/Neck/Throat: Trachea midline, mucous membranes moist Eyes: Sclera anicteric, no erythema or discharge appreciated bilaterally Thorax: Normal respiratory effort on room air, lungs clear to auscultation bilaterally, no wheezes/rales/rhonchi Cardiovascular: Normal rate, regular rhythm, normal S1, S2 Abdomen: Bowel sounds present, soft, no tenderness with palpation, colostomy noted to have stool and gas, ostomy site looks healthy Genitourinary: Garcia draining yellow urine Skin: Chronic sacral wound dressing was dry Neurologic: Awake, alert, and oriented. She is able to move her right upper e xtremity however unable to move her lower extremity as well as left arm. Assessment /Plan Plan/VTE VTE Prophylaxis Ordered?: Yes Plan #Pneumonia -There was purulent sputum with a change in color, leukocytosis, and CT scan findings of right basilar infiltrate that was increased from her previous studies. Therefore we will treat this like pneumonia. She has received cefepime, and there has also been clinical improvement. We'll put a stop date to cefepime for 01/08. #Leukocytosis -To my surprise, despite her having chronic wounds and possibly chronic osteomyelitis (suggestive on ct) her leukocytosis has resolved. This was likely due to her pneumonia. -ESR this is likely due to her chronic wounds and osteomyelitis. #Abdominal pain -Intermittent and relieved with prokinetics. #Left arm swelling -Negative for DVT. This is chronic in nature, she is unable to move this arm and likely this is dependent edema. #Hypotensive -Resolved. Continue with hold parameters with diuretics #Paraplegia with chronic trach, stage IV sacral ulcer, abdominal spasms, and chronic pain -Supportive care - garcia care, wound dressing as per protocol (will likely need to be increased to daily). -Symptomatic management for chronic pain - oxycodone, pregabalin; and metoclopramide. #Bladder spasms -Continue solifenacin #Diabetes mellitus with diabetic neuropathy -BG is acceptable range. Continue with sliding scale insulin, and hypoglycemic protocol. -Continue pregabalin for the neuropathy #Hyperlipidemia -Continue atorvastatin #Anxiety and depression -Continue diazepam and duloxetine #Constipation -Continue docusate sodium, Senna, Miralax. Will discontinue lactulose to see if this helps with the abdominal pain as it can cause intestinal cramps. #GERD -Continue Pantoprazole and Carafate #HFpEF -No signs of acute exacerbation. Continue ambulatory diuretics if blood pressure allows. #DVT ppx -Lovenox VS, I&O, 24H, Fishbone Vital Signs/I&O Vital Signs Date Time Temp Pulse Resp B/P (MAP) Pulse Ox O2 Delivery O2 Flow Rate FiO2 01/07/21 07:22 16 01/07/21 06:52 Trach Collar 01/07/21 06:00 97.2 101 111/58 (75) 98 8.0 35 I&O- Last 24 Hours up to 6 AM 01/07/21 06:00 Intake Total 1509 ml Output Total 275 ml Balance 1234 ml Laboratory Data 24H LABS Laboratory Tests 2 01/06/21 16:39: Bedside Glucose (Misc Panel) 111 01/06/21 19:48: Bedside Glucose (Misc Panel) 158H 01/07/21 06:27: Anion Gap 4L, Glomerular Filtration Rate > 60.0, Calcium Level 7.7L, Phosphorus Level 2.9, Magnesium Level 2.2 01/07/21 11:44: Bedside Glucose (Misc Panel) 152H CBC/BMP Laboratory Tests 01/07/21 06:27 Microbiology Microbiology 01/03/21 Gram Stain - Final, Complete 01/03/21 Sputum Culture - Final, Complete Klebsiella Pneumoniae Yeast Like Organism 12/30/20 Respiratory Virus Panel (PCR) (PARISA) - Final, Complete 12/30/20 Blood Culture - Final, Complete NO GROWTH AFTER 5 DAYS 12/30/20 Blood Culture - Final, Complete NO GROWTH AFTER 5 DAYS TAYLA NEVILLE M.D. Jan 07, 2021 14:09
[2021-01-09] MEDS: LevoFLOXacin 750 MG TABLET PO SCH (18:04)
[2021-01-09 22:05] VITALS: BP 101/63
[2021-01-09] MEDS: HumaLOG INSULIN (NovoLOG) PER UNIT SC SCH (22:06)
[2021-01-09] MEDS: FERROUS GLUCONATE 324 MG TAB PO SCH (22:14)
[2021-01-09] MEDS: DULoxetine 30 MG CAP (CYMBALTA) PO SCH (22:14)
[2021-01-09] MEDS: ATORVASTATIN 20 MG TAB PO SCH (22:15)
[2021-01-09] MEDS: SENNA 8.6 MG TAB (SENOKOT) PO SCH (22:15)
[2021-01-10] MEDS: ACETAMINOPHEN TAB 650MG DOSE (2X325MG) PO PRN ×4 (02:04→22:11)
[2021-01-10] MEDS: diazePAM 2 MG TAB PO PRN ×2 (05:00→16:03)
[2021-01-10 06:00] VITALS: BP 105/62
[2021-01-10 06:37] LABS: BASO # 0.1 10^3/uL (0.0-0.2); BASO % 0.8 % (0.0-1.0); EOS # 0.9 10^3/uL (0.0-0.5); EOS % 7.8 % (0.0-3.0); HEMOGLOBIN 7.6 g/dl (12.0-15.5); LYMPH # 1.8 10^3/uL (1.5-5.0); LYMPH % 15.7 % (24.0-44.0); MEAN CORPUSCULAR HEMOGLOBIN 24.8 pg (27.0-33.0); MEAN CORPUSCULAR HGB CONC 30.4 g/dl (32.0-36.5); MEAN CORPUSCULAR VOLUME 81.4 fl (80.0-96.0); MONO # 1.2 10^3/uL (0.0-0.8); MONO % 10.2 % (2.0-8.0); NEUTROPHILS # 7.5 10^3/uL (1.5-8.5); NEUTROPHILS % 64.5 % (36.0-66.0); PLATELET COUNT, AUTOMATED 434 10^3/uL (150-450); RED BLOOD COUNT 3.07 10^6/uL (4.00-5.40); WHITE BLOOD COUNT 11.6 10^3/uL (4.0-10.0)
[2021-01-10 06:54] LABS: BLOOD UREA NITROGEN 9 MG/DL (7-18); CALCIUM LEVEL 7.4 MG/DL (8.8-10.2); CARBON DIOXIDE LEVEL 30 MEQ/L (21-32); CHLORIDE LEVEL 99 MEQ/L (98-107); CREATININE FOR GFR 0.36 MG/DL (0.55-1.30); GLOMERULAR FILTRATION RATE > 60.0 (>45); GLUCOSE, FASTING 84 MG/DL (70-100); MAGNESIUM LEVEL 2.1 MG/DL (1.8-2.4); POTASSIUM SERUM 4.7 MEQ/L (3.5-5.1); SODIUM LEVEL 133 MEQ/L (136-145)
--- NOTE | 2021-01-10 08:10 | REP ---
INDICATION: Leukocytosis. COMPARISON: Comparison chest x-ray December 30, 2020. TECHNIQUE: Portable upright AP chest radiograph. FINDINGS: Cervicothoracic fusion metallic hardware is seen. Tracheostomy tube is noted in good position. There is platelike atelectasis in the right base above a slightly elevated right hemidiaphragm similar to the December 30, 2020 study. The left lung is clear. No new infiltrate is seen. Heart is prominent as before. Pulmonary vasculature is not increased.. IMPRESSION: There is platelike atelectasis in the right base above the elevated right hemidiaphragm. Tracheostomy tube in good position. No new infiltrate seen.. <Electronically signed by Mario Winslow > 01/10/21 0857
[2021-01-10] MEDS: PANTOPRAZOLE 40MG TAB (PROTONIX) PO SCH ×2 (08:37→22:00)
[2021-01-10] MEDS: FOLIC ACID 1 MG TAB PO SCH (08:37)
[2021-01-10] MEDS: LEVOTHYROXINE 50MCG TABLET (0.05MG) PO SCH (08:37)
[2021-01-10] MEDS: BACLOFEN 10 MG TAB PO SCH ×3 (08:37→21:59)
[2021-01-10] MEDS: CYANOCOBALAMIN 250 MCG TABLET PO SCH (08:37)
[2021-01-10] MEDS: ASPIRIN 81MG ENTERIC TABLET PO SCH (08:37)
[2021-01-10] MEDS: TORSEMIDE 20 MG TAB PO SCH (08:38)
[2021-01-10] MEDS: NYSTATIN 100,000 UNITS/GM TOPICAL PWD 15 GM TOP SCH ×2 (08:38→22:00)
[2021-01-10 08:39] VITALS: BP 105/60
[2021-01-10] MEDS: ENOXAPARIN 40MG/0.4ML SYRINGE (J1650 PER 10MG) SC SCH (08:39)
[2021-01-10] MEDS: SUCRALFATE SUSP 1GM/10ML UD PO SCH ×4 (08:40→21:59)
[2021-01-10] MEDS: SOLIFENACIN 5 MG TAB PO SCH (08:42)
[2021-01-10] MEDS: DOCUSATE SODIUM 100MG CAPSULE PO SCH ×2 (08:42→21:59)
[2021-01-10] MEDS: PREGABALIN 100 MG CAP (LYRICA) PO SCH ×2 (08:43→22:00)
[2021-01-10] MEDS: METOCLOPRAMIDE 10 MG TAB PO PRN ×2 (08:43→22:01)
[2021-01-10 08:55] LABS: C REACTIVE PROTEIN QUANTITATIV 7.63 MG/DL (0.00-0.30)
[2021-01-10] MEDS ORDERED: NS 1,000 ML IV SCH ×2 (09:55→14:05)
[2021-01-10 10:04] LABS: ALBUMIN 1.4 GM/DL (3.2-5.2); ALT/SGPT 15 U/L (12-78); BILIRUBIN,DIRECT < 0.1 MG/DL (0.0-0.2); BILIRUBIN,TOTAL 0.2 MG/DL (0.2-1.0); TOTAL PROTEIN 5.5 GM/DL (6.4-8.2)
[2021-01-10] MEDS: oxyCODONE 5MG TAB PO PRN ×2 (11:49→23:50)
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
[2021-01-10] MEDS: LevoFLOXacin 750 MG TABLET PO SCH (18:10)
[2021-01-10] MEDS: DULoxetine 30 MG CAP (CYMBALTA) PO SCH (21:59)
[2021-01-10] MEDS: FERROUS GLUCONATE 324 MG TAB PO SCH (21:59)
[2021-01-10 22:00] VITALS: BP 105/59
[2021-01-10] MEDS: HumaLOG INSULIN (NovoLOG) PER UNIT SC SCH (22:00)
[2021-01-10] MEDS: ATORVASTATIN 20 MG TAB PO SCH (22:00)
[2021-01-10] MEDS: SENNA 8.6 MG TAB (SENOKOT) PO SCH (22:00)
[2021-01-11] MEDS: diazePAM 2 MG TAB PO PRN (04:14)
[2021-01-11 06:00] VITALS: BP 110/48
[2021-01-11] MEDS: SUCRALFATE SUSP 1GM/10ML UD PO SCH ×2 (08:21→11:54)
[2021-01-11] MEDS: ASPIRIN 81MG ENTERIC TABLET PO SCH (08:22)
[2021-01-11] MEDS: PANTOPRAZOLE 40MG TAB (PROTONIX) PO SCH (08:22)
[2021-01-11] MEDS: DOCUSATE SODIUM 100MG CAPSULE PO SCH (08:22)
[2021-01-11] MEDS: PREGABALIN 100 MG CAP (LYRICA) PO SCH (08:22)
[2021-01-11] MEDS: SOLIFENACIN 5 MG TAB PO SCH (08:22)
[2021-01-11] MEDS: ACETAMINOPHEN TAB 650MG DOSE (2X325MG) PO PRN (08:23)
[2021-01-11] MEDS: BACLOFEN 10 MG TAB PO SCH (08:23)
[2021-01-11] MEDS: CYANOCOBALAMIN 250 MCG TABLET PO SCH (08:23)
[2021-01-11] MEDS: FOLIC ACID 1 MG TAB PO SCH (08:23)
[2021-01-11] MEDS: LEVOTHYROXINE 50MCG TABLET (0.05MG) PO SCH (08:23)
[2021-01-11] MEDS: ENOXAPARIN 40MG/0.4ML SYRINGE (J1650 PER 10MG) SC SCH (08:24)
[2021-01-11] MEDS: NYSTATIN 100,000 UNITS/GM TOPICAL PWD 15 GM TOP SCH (08:24)
[2021-01-11] MEDS ORDERED: LEVO750T13 PO (08:38)
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
[2021-01-11] MEDS: oxyCODONE 5MG TAB PO PRN (11:54)
== END 2021-01-11 13:48 | disposition left against medical advice (07) | DRG 177 ==
LOC: M ED 13:57 → M ED INP 19:38 → ENRESERV 20:44 → M MSPAV 21:30
PROVIDERS: ADMIT Internal Medicine; ATTEND Internal Medicine
DX: J15.0 Pneumonia due to Klebsiella pneumoniae (principal); L89.214 Pressure ulcer of right hip, stage 4; L89.224 Pressure ulcer of left hip, stage 4; G82.20 Paraplegia, unspecified; I50.32 Chronic diastolic (congestive) heart failure; E87.2 Acidosis; R11.2 Nausea with vomiting, unspecified; Z93.0 Tracheostomy status; K59.00 Constipation, unspecified; F32.9 Major depressive disorder, single episode, unspecified; F41.9 Anxiety disorder, unspecified; E03.9 Hypothyroidism, unspecified; E11.40 Type 2 diabetes mellitus with diabetic neuropathy, unspecified; Z93.3 Colostomy status; I11.0 Hypertensive heart disease with heart failure; D50.9 Iron deficiency anemia, unspecified; G43.909 Migraine, unspecified, not intractable, without status migrainosus; D72.829 Elevated white blood cell count, unspecified; Z79.82 Long term (current) use of aspirin; Z79.899 Other long term (current) drug therapy; Z88.5 Allergy status to narcotic agent; E66.01 Morbid (severe) obesity due to excess calories; F11.90 Opioid use, unspecified, uncomplicated; E78.5 Hyperlipidemia, unspecified; N32.89 Other specified disorders of bladder

== ENCOUNTER 2021-01-16 15:44 | Inpatient (IN) | payer MEDICARE, OTHER ==
[~2021-01-16] VITALS: Ht 172.7 cm; Wt 118.0 kg
--- NOTE | 2021-01-16 17:24 | REP ---
INDICATION: chills, cough. COMPARISON: 01/10/2021. TECHNIQUE: Single portable AP view of the chest was performed. FINDINGS: There is stable elevation of the right hemidiaphragm with adjacent discoid atelectasis. No new infiltrate is seen. Prominent cardiac silhouette is unchanged. There is calcification and tortuosity of the thoracic aorta. Tracheostomy tube appears to be in good position. Metallic rods and screws are seen in the upper thoracic spine. IMPRESSION: No acute pulmonary disease.No significant change compared to the prior study. <Electronically signed by Bishop Hull > 01/16/21 [id number]
[2021-01-16 18:12] LABS: BASO # 0.1 10^3/uL (0.0-0.2); BASO % 0.8 % (0.0-1.0); EOS # 0.8 10^3/uL (0.0-0.5); EOS % 6.4 % (0.0-3.0); HEMATOCRIT 28.7 % (36.0-47.0); HEMOGLOBIN 8.7 g/dl (12.0-15.5); LYMPH # 1.7 10^3/uL (1.5-5.0); MEAN CORPUSCULAR HEMOGLOBIN 24.9 pg (27.0-33.0); MEAN CORPUSCULAR HGB CONC 30.3 g/dl (32.0-36.5); MONO # 1.6 10^3/uL (0.0-0.8); NEUTROPHILS # 7.8 10^3/uL (1.5-8.5); NEUTROPHILS % 65.4 % (36.0-66.0); PLATELET COUNT, AUTOMATED 666 10^3/uL (150-450)
[2021-01-16 18:33] LABS: ALBUMIN 1.5 GM/DL (3.2-5.2); ALT/SGPT 13 U/L (12-78); BILIRUBIN,TOTAL 0.1 MG/DL (0.2-1.0); BLOOD UREA NITROGEN 8 MG/DL (7-18); CALCIUM LEVEL 7.8 MG/DL (8.8-10.2); CARBON DIOXIDE LEVEL 36 MEQ/L (21-32); CHLORIDE LEVEL 97 MEQ/L (98-107); GLOMERULAR FILTRATION RATE > 60.0 (>45); GLUCOSE, FASTING 101 MG/DL (70-100); MAGNESIUM LEVEL 1.9 MG/DL (1.8-2.4); POTASSIUM SERUM 4.3 MEQ/L (3.5-5.1); SODIUM LEVEL 135 MEQ/L (136-145)
[2021-01-16 18:48] LABS: WHITE BLOOD COUNT 11.9 10^3/uL (4.0-10.0)
[2021-01-16] MEDS ORDERED: NS 1,000 ML IV ONE (19:15)
--- NOTE | 2021-01-16 20:38 | ECGEPIP ---
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
[2021-01-16] MEDS ORDERED: SENNA 8.6 MG TAB (SENOKOT) PO SCH (21:00)
[2021-01-16] MEDS ORDERED: DOCUSATE SODIUM 100MG CAPSULE PO SCH (21:00)
[2021-01-16] MEDS: NYSTATIN 100,000 UNITS/GM TOPICAL PWD 15 GM TOP SCH (21:00)
[2021-01-16] MEDS ORDERED: SODIUM CHLORIDE 0.9% 1000ML IV STA (21:56)
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
[2021-01-16] MEDS ORDERED: ISOVUE-370 76% 100ML VIAL As Ordered ONE (22:24)
[2021-01-16 22:26] LABS: ERYTHROCYTE SEDIMENTATION RATE 97 mm/hr (0-30)
[2021-01-16 22:38] LABS: FERRITIN 174 NG/ML (8-252); IRON (FE) 33 UG/DL (50-170); PERCENT SATURATION 28.7 % (13.2-45.0); TOTAL IRON BINDING CAPACITY 115 UG/DL (250-450)
[2021-01-16] MEDS: PIPERACILLIN/TAZOBACTAM SOD 4.5 GM in D5W MINI-BAG PLUS 50 ML IV SCH (22:41)
[2021-01-16] MEDS ORDERED: HOME MED LIST COMPLETE! XX SCH (22:45)
[2021-01-16 22:48] LABS: VITAMIN B12 LEVEL 929 PG/ML (247-911)
[2021-01-16] MEDS ORDERED: diazePAM 2 MG TAB PO PRN (22:55)
[2021-01-16] MEDS ORDERED: MIRALAX *UNIT DOSE* 17GM PACKET PO PRN (22:55)
[2021-01-16] MEDS ORDERED: POLYVINYL ALCOHOL OPHTH SOLN 15 ML(LIQUITEARS) OU PRN (22:55)
[2021-01-16 23:11] LABS: FOLATE 10.5 NG/ML (>5.4)
[2021-01-17] VITALS (23 sets, daily range): BP systolic 89–154; BP diastolic 50–67
[2021-01-17] MEDS ORDERED: VANCOMYCIN HCL 1,000 MG, VIAL MATE ADAPTER 1 EACH in NS 250 ML IV ONE ×5 (01:00→02:00)
--- NOTE | 2021-01-17 01:41 | REPVR ---
PROCEDURE INFORMATION: Exam: XR Chest Exam date and time: 01/17/2021 12:56 AM Age: 65 years old Clinical indication: Device placement; Other: Central line; Additional info: Central line placement TECHNIQUE: Imaging protocol: XR of the chest. Views: 1 view. COMPARISON: CR Chest, 1 view 01/16/2021 5:01 PM FINDINGS: Tubes, catheters and devices: A tracheostomy tube is again noted. Interval placement of a left internal jugular central line to the distal superior vena cava. Lungs: The lungs are unchanged. Pleural spaces: Unremarkable. No pleural effusion. No pneumothorax. Heart/Mediastinum: Unremarkable. No cardiomegaly. Diaphragm: Elevation of the right hemidiaphragm which is unchanged. Bones/joints: Upper thoracic fusion which is similar. Soft tissues: There are generous overlying soft tissues. IMPRESSION: 1. Interval placement of left internal jugular central line to the distal superior vena cava since 01/16/2021. No pneumothorax. 2. Otherwise stable chest. Electronically signed by: Sg Ann On 01/17/2021 01:40:48 AM
--- NOTE | 2021-01-17 01:52 | REPVR ---
PROCEDURE INFORMATION: Exam: CT Abdomen And Pelvis With Contrast Exam date and time: 01/16/2021 9:56 PM Age: 65 years old Clinical indication: Other: Sepsis; Additional info: Sepsis / draining sacral wounds /r/o abscess TECHNIQUE: Imaging protocol: Computed tomography of the abdomen and pelvis with contrast. Radiation optimization: All CT scans at this facility use at least one of these dose optimization techniques: automated exposure control; mA and/or kV adjustment per patient size (includes targeted exams where dose is matched to clinical indication); or iterative reconstruction. Contrast material: ISO; Contrast volume: 100 ml; Contrast route: INTRAVENOUS (IV); COMPARISON: CT ABD PELVIS WITH CONTRAST 01/02/2021 8:58 PM FINDINGS: Lungs: Moderate right base fibro-atelectatic change, greatest in the lower lobe and minimal left base fibro-atelectatic change. Liver: Normal. No mass. Gallbladder and bile ducts: Status post cholecystectomy. Pancreas: Pancreatic atrophy for age. Spleen: Normal. No splenomegaly. Adrenal glands: Normal. No mass. Kidneys and ureters: Lobular kidneys bilaterally. There is a right renal cyst measuring 33 mm with a Hounsfield measurement of -31 which is redemonstrated and similar to the prior study. Stomach and bowel: Colostomy in the low pelvis with the proximal rectum sutured off. Appendix: A normal appendix is seen. Intraperitoneal space: Unremarkable. No free air. No significant fluid collection. Vasculature: The ascending thoracic aorta measures 34 mm. The main pulmonary artery measures 43 mm. There is minimal atherosclerotic calcification of the abdominal aorta. Lymph nodes: Small mediastinal nodes are noted. Urinary bladder: There is a Wood catheter in the bladder. Reproductive: Unremarkable as visualized. Bones/joints: Status post fusion in the thoracic spine to the T6 level. Soft tissues: There is decubitus ulceration over the sacrum centered to the left of midline with probable erosion of the sacrococcygeal region consistent with osteomyelitis. Decubitus ulcer over the left ischial tuberosity with sclerotic and some erosive change consistent with chronic osteomyelitis. IMPRESSION: 1. Moderate right lower lobe and minimal right middle lobe and left base fibro-atelectatic change. 2. Enlarged main pulmonary artery measuring 43 mm which may be seen with pulmonary hypertension. 3. Pancreatic atrophy for age. 4. Status post cholecystectomy. 5. Wood catheter in the bladder. 6. Colonic diversion with colostomy at the level of the sigmoid with sutured off proximal rectum. 7. Decubitus ulcer over the left ischial tuberosity with osseous changes of the ischial tuberosity consistent with chronic osteomyelitis. There is also a decubitus ulcer over the sacrum centered to the left of midline with erosion at the sacrococcygeal region consistent with osteomyelitis. Electronically signed by: Sg Ann On 01/17/2021 01:51:27 AM
[2021-01-17] MEDS: SUCRALFATE SUSP 1GM/10ML UD PO SCH ×5 (02:38→20:05)
[2021-01-17] MEDS: MAGNESIUM OXIDE 400MG TAB (MAG-OX) PO SCH ×3 (02:38→20:06)
[2021-01-17] MEDS: DULoxetine 30 MG CAP (CYMBALTA) PO SCH ×2 (02:38→20:05)
[2021-01-17] MEDS: PREGABALIN 100 MG CAP (LYRICA) PO SCH ×3 (02:39→20:06)
[2021-01-17] MEDS: BACLOFEN 10 MG TAB PO SCH ×4 (02:39→20:05)
[2021-01-17] MEDS: ATORVASTATIN 20 MG TAB PO SCH ×2 (02:39→20:06)
[2021-01-17] MEDS ORDERED: LR 1,000 ML IV SCH (03:00)
[2021-01-17] MEDS ORDERED: PERCOCET 5MG/325MG TAB PO ONE (04:00)
[2021-01-17] MEDS: PIPERACILLIN/TAZOBACTAM SOD 4.5 GM in D5W MINI-BAG PLUS 50 ML IV SCH ×2 (05:26→12:54)
[2021-01-17] MEDS: LEVOTHYROXINE 50MCG TABLET (0.05MG) PO SCH (05:26)
[2021-01-17 05:46] LABS: HEMOGLOBIN 7.1 g/dl (12.0-15.5); MEAN CORPUSCULAR HGB CONC 30.9 g/dl (32.0-36.5); PLATELET COUNT, AUTOMATED 607 10^3/uL (150-450); RED BLOOD COUNT 2.84 10^6/uL (4.00-5.40); WHITE BLOOD COUNT 11.4 10^3/uL (4.0-10.0)
[2021-01-17] MEDS ORDERED: HYDROMORPHONE HCL 0.5 MG/ 0.5 ML SYRINGE (J1170 PER 1) IV PRN ×2 (06:00)
[2021-01-17] MEDS ORDERED: D5W/0.9% SODIUM CHLORIDE 1,000 ML IV SCH (06:00)
[2021-01-17 06:17] LABS: ALBUMIN 1.3 GM/DL (3.2-5.2); ALT/SGPT 10 U/L (12-78); BILIRUBIN,TOTAL 0.2 MG/DL (0.2-1.0); BLOOD UREA NITROGEN 7 MG/DL (7-18); CALCIUM LEVEL 7.8 MG/DL (8.8-10.2); CARBON DIOXIDE LEVEL 35 MEQ/L (21-32); CHLORIDE LEVEL 98 MEQ/L (98-107); CREATININE FOR GFR 0.38 MG/DL (0.55-1.30); GLOMERULAR FILTRATION RATE > 60.0 (>45); GLUCOSE, FASTING 127 MG/DL (70-100); POTASSIUM SERUM 3.1 MEQ/L (3.5-5.1); SODIUM LEVEL 136 MEQ/L (136-145); TOTAL PROTEIN 5.6 GM/DL (6.4-8.2)
[2021-01-17] MEDS ORDERED: PERCOCET 5MG/325MG TAB PO PRN (07:40)
[2021-01-17] MEDS ORDERED: CYANOCOBALAMIN 250 MCG TABLET PO SCH (09:00)
[2021-01-17] MEDS ORDERED: ENOXAPARIN 40MG/0.4ML SYRINGE (J1650 PER 10MG) SC SCH (09:00)
[2021-01-17] MEDS ORDERED: LACTULOSE 20 GM/30 ML SYRUP UD PO SCH (09:00)
[2021-01-17] MEDS: POTASSIUM CHLORIDE 10 MEQ SR TABLET PO SCH (09:21)
[2021-01-17] MEDS: SOLIFENACIN 5 MG TAB PO SCH (09:21)
[2021-01-17] MEDS: NYSTATIN 100,000 UNITS/GM TOPICAL PWD 15 GM TOP SCH ×2 (09:21→20:07)
[2021-01-17] MEDS: PANTOPRAZOLE 40MG TAB (PROTONIX) PO SCH (09:21)
[2021-01-17] MEDS: FOLIC ACID 1 MG TAB PO SCH (09:22)
[2021-01-17] MEDS: ASPIRIN 81MG ENTERIC TABLET PO SCH (09:22)
[2021-01-17] MEDS: NS 1,000 ML IV SCH ×2 (09:22→17:23)
[2021-01-17] MEDS ORDERED: GLUCOSE 4GM CHEW TABLET PO PRN (10:05)
[2021-01-17] MEDS ORDERED: DEXTROSE 50% 50 ML SYRINGE IV PRN (10:05)
[2021-01-17] MEDS ORDERED: GLUCAGON INJ 1MG VIAL SC PRN (10:05)
[2021-01-17] MEDS ORDERED: HEPARIN SOD (PORCINE) 5000UNITS/ML 1ML VIAL/SYRINGE SQ SCH ×2 (11:15→21:00)
--- NOTE | 2021-01-17 11:18 | IPNPDOC ---
Text Note Date of Service The patient was seen on 01/17/21. NOTE SUBJECTIVE: -Sleepy this morning -Pain much better controlled -Afebrile, soft BPs at her baseline, thankfully never needed the pressors after the fluids OBJECTIVE: GENERAL APPEARANCE: well-nourished and developed, chronically ill appearing HEENT: NCAT, EOMI, MMM, trach collar in place CARDIOVASCULAR: RRR, no m/r/g LUNGS: CTAB, no crackles or wheezing ABDOMEN: Obese, normoactive sounds, nontender this morning to palpation MUSCULOSKELETAL: unable to move extremities bc of paraplegia INTEGUMENT: will coordinate detailed wound examination with nursing because she has significant pain with each check and dressing changes PSYCHIATRIC: AOx3 LABORATORY DATA: Reviewed WBC 11.4 hgb 7.1 platelets 607 na 136 K 3.1 Cr 0.38 IMAGING: Chest xray IMPRESSION: No acute pulmonary disease.No significant change compared to the prior study. CT abd/pelvis IMPRESSION: 1. Moderate right lower lobe and minimal right middle lobe and left base fibro-atelectatic change. 2. Enlarged main pulmonary artery measuring 43 mm which may be seen with pulmonary hypertension. 3. Pancreatic a trophy for age. 4. Status post cholecystectomy. 5. Wood catheter in the bladder. 6. Colonic diversion with colostomy at the level of the sigmoid with sutured off proximal rectum. 7. Decubitus ulcer over the left ischial tuberosity with osseous changes of the ischial tuberosity consistent with chronic osteomyelitis. There is also a decubitus ulcer over the sacrum centered to the left of midline with erosion at the sacrococcygeal region consistent with osteomyelitis. MICROBIOLOGY: Respiratory panel is neg ASSESSMENT: Ms. Stiles is a 65-year-old W with a history of Paraplegia, Chronic trach collar, Chronic sacral wounds with osteomyelitis, Colostomy, Urinary retention with chronic Wood, 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, NIDDM with neuropathy, Hypothyroidism, GABRIELA, Migraines, Chronic CHF, DLP, HTN, Anxiety/depression, recurrent UTIs & obesity who is admitted for hypotension, vomiting / diarrhea, back pain possibly due to infected chronic wounds, & CAUTI vs. chronic colonization. PLAN: 1 Hypotension Likely due to dehydration from vomiting and diarrhea Less likely due to infection but confounded by chronic urinary colonization and MRSA colonization -s/p 3L NS boluses, c/w IVF -holding home torsemide -Was empirically placed on vanc/piptazo, will discuss with ID 2 Vomiting and diarrhea -f/u GI panel -Zofran -holding laxatives 3 Back pain Likely 2/2 Chronic stage IV sacral wound, stage IV left ischium wound & stage III right ischium wound -continue home baclofen/ pregabalin -DC dilaudid, place on scaled percocet 1Q4HP for moderate pain, 2Q6HP for severe pain, with PRN IV morphine 4mg for severe pain to be administered prior to wound care. -For now will continue IV vanc and piptazo but will discuss with ID given chronic colonizations and pending wound care consult and debridement -For now, instructions for wound care to follow most recent consult 4 Abdominal pain: improved this AM -Continue empiric piptazo with pending blood Cx, CT without new abdominal findings. -UCx culture pending, to discuss with ID -Exchange catheter 5 Paraplegia with Chronic trach collar & Colostomy, -Air mattress -colostomy care -urinary catheter care 6 Hypothyroidism -Levothyroxine 7 Acute on chronic anemia with history of GABRIELA and likely AOCI -2u pRBC -without convincing info of overwhelming infection and sepsis, will restart her iron supplementation 8. Thrombocytosis: chronic 9. Chronic CHF - Hold Lasix because of soft BPs 10. DLP -Statin 11. Anxiety/depression -Diazepam per home script 12. Class 2 obesity -Complicates care 13. Chronic sacral wounds with osteomyelitis -Wound care consult with Dr. Reed and anticipate consult with Dr. Lopez for debridement 14. DM -Hypoglycemia protocol -ACHS SSI and FSBG DVT PROPHYLAXIS: heparin TID DISPOSITION: PCU VS,Fishbone, I+O VS, Fishbone, I+O Laboratory Tests 01/16/21 17:53 01/17/21 05:25 Vital Signs Date Time Temp Pulse Resp B/P (MAP) Pulse Ox O2 Delivery O2 Flow Rate FiO2 01/17/21 06:00 95 100/60 (73) 97 Trach Collar 8.0 28 01/17/21 04:39 20 01/17/21 02:16 98.6 I&O- Last 24 Hours up to 6 AM 01/17/21 05:59 Intake Total 1560 ml Output Total 850 ml Balance 710 ml MARCOS RAO MD Jan 17, 2021 07:59
[2021-01-17] MEDS ORDERED: POTASSIUM CHLORIDE 10 MEQ SR TABLET PO ONE (12:00)
[2021-01-17] MEDS: HumaLOG INSULIN (NovoLOG) PER UNIT SC SCH ×3 (12:00→20:09)
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
[2021-01-17] MEDS ORDERED: VANCOMYCIN HCL 1,000 MG, VIAL MATE ADAPTER 1 EACH in NS 250 ML IV SCH (14:00)
[2021-01-17] MEDS: ACETAMINOPHEN 650MG ER TAB (TYLENOL ARTHRITIS) PO SCH ×2 (14:52→22:22)
[2021-01-17] MEDS: ENOXAPARIN 40MG/0.4ML SYRINGE (J1650 PER 10MG) SC SCH (14:53)
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
[2021-01-18 04:00] VITALS: BP 104/61
[2021-01-18] MEDS: ACETAMINOPHEN 650MG ER TAB (TYLENOL ARTHRITIS) PO SCH ×3 (05:17→21:22)
[2021-01-18] MEDS: NS 1,000 ML IV SCH (05:22)
[2021-01-18] MEDS: LEVOTHYROXINE 50MCG TABLET (0.05MG) PO SCH (05:22)
[2021-01-18 07:52] VITALS: BP 114/59
[2021-01-18] MEDS: SOLIFENACIN 5 MG TAB PO SCH (09:39)
[2021-01-18] MEDS: SUCRALFATE SUSP 1GM/10ML UD PO SCH ×4 (09:39→21:21)
[2021-01-18] MEDS: MAGNESIUM OXIDE 400MG TAB (MAG-OX) PO SCH ×2 (09:40→21:22)
[2021-01-18] MEDS: ASPIRIN 81MG ENTERIC TABLET PO SCH (09:40)
[2021-01-18] MEDS: PANTOPRAZOLE 40MG TAB (PROTONIX) PO SCH (09:42)
[2021-01-18] MEDS: HumaLOG INSULIN (NovoLOG) PER UNIT SC SCH ×4 (09:42→21:00)
[2021-01-18] MEDS: FOLIC ACID 1 MG TAB PO SCH (09:43)
[2021-01-18] MEDS: PREGABALIN 100 MG CAP (LYRICA) PO SCH ×2 (09:43→21:22)
[2021-01-18] MEDS: POTASSIUM CHLORIDE 10 MEQ SR TABLET PO SCH (09:44)
[2021-01-18] MEDS: BACLOFEN 10 MG TAB PO SCH ×3 (09:44→21:22)
[2021-01-18] MEDS: NYSTATIN 100,000 UNITS/GM TOPICAL PWD 15 GM TOP SCH ×2 (09:45→21:21)
[2021-01-18] MEDS: ENOXAPARIN 40MG/0.4ML SYRINGE (J1650 PER 10MG) SC SCH (09:45)
[2021-01-18] MEDS: PERCOCET 5MG/325MG TAB PO PRN ×2 (10:01→17:11)
--- NOTE | 2021-01-18 11:51 | IPNPDOC ---
Text Note Date of Service The patient was seen on 01/18/21. NOTE SUBJECTIVE: -No acute complaints OBJECTIVE: GENERAL APPEARANCE: well-nourished and developed, chronically ill appearing HEENT: NCAT, EOMI, MMM, trach collar in place CARDIOVASCULAR: RRR, no m/r/g LUNGS: CTAB, no crackles or wheezing ABDOMEN: Obese, normoactive sounds, nontender this morning to palpation MUSCULOSKELETAL: unable to move extremities bc of paraplegia INTEGUMENT: has large sacral wound and R and L ischial wounds that appear not infected at this time with no copious drainage, nothing purulent noted, no surrounding erythema. Please see wound consult note for exact measurements. PSYCHIATRIC: AOx3 LABORATORY DATA: Reviewed IMAGING: Chest xray IMPRESSION: No acute pulmonary disease.No significant change compared to the prior study. CT abd/pelvis IMPRESSION: 1. Moderate right lower lobe and minimal right middle lobe and left base fibro-atelectatic change. 2. Enlarged main pulmonary artery measuring 43 mm which may be seen with pulmonary hypertension. 3. Pancreatic atrophy for age. 4. Status post cholecystectomy. 5. Wood catheter in the bladder. 6. Colonic diversion with colostomy at the level of the sigmoid with sutured off proximal rectum. 7. Decubitus ulcer over the left ischial tuberosity with osseous changes of the ischial tuberosity consistent with chronic osteomyelitis. There is also a decubitus ulcer over the sacrum centered to the left of midline with erosion at the sacrococcygeal region consistent with osteomyelitis. MICROBIOLOGY: Respiratory panel is neg ASSESSMENT: Ms. Stiles is a 65-year-old W with a history of Paraplegia, Chronic trach collar, Chronic sacral wounds with osteomyelitis, Colostomy, Urinary retention with chronic Wood, 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, NIDDM with neuropathy, Hypothyroidism, GABRIELA, Migraines, Chronic CHF, DLP, HTN, Anxiety/depression, recurrent UTIs & obesity who is admitted for hypotension, vomiting / diarrhea, back pain possibly due to infected chronic wounds, & CAUTI vs. chronic colonization. PLAN: 1 Hypotension: 2/2 dehydration from vomiting and diarrhea: resolved Less likely due to infection but confounded by chronic urinary colonization and MRSA colonization -s/p 3L NS boluses, will dc fluids and monitor 2 Vomiting and diarrhea: No diarrhea since admission -f/u GI panel -Zofran -holding laxatives 3 Back pain Likely 2/2 Chronic stage IV sacral wound, stage IV left ischium wound & stage III right ischium wound -continue home baclofen/ pregabalin -Percocet 1Q4HP for moderate pain, 2Q6HP for severe pain, with PRN IV morphine 4mg for severe pain to be administered prior to wound care. - consulted, wounds look good -ID consulted, agreed with no antibiotic therapy 4 Abdominal pain: resolved -DC'd IV antibiotics -UCx culture pending -Exchanged catheter 5 Paraplegia with Chronic trach collar & Colostomy, -Air mattress -colostomy care -urinary catheter care 6 Hypothyroidism -Levothyroxine 7 Acute on chronic anemia with history of GABRIELA and likely AOCI -s/p 2u pRBC -iron supplementation 8. Thrombocytosis: chronic 9. Chronic CHF - Holding Lasix because of soft BPs 10. DLP -Statin 11. Anxiety/depression -Diazepam per home script 12. Class 2 obesity -Complicates care 13. Chronic pressure sacral wounds with osteomyelitis and ischial wounds as well -Wound care consult with Dr. Reed done, with instructions in his note and orders are in for wound care -Adriano BID 14. DM -Hypoglycemia protocol -ACHS SSI and FSBG DVT PROPHYLAXIS: heparin TID DISPOSITION: Medsurg. PFS consulted for safe discharge planning given high degree of readmissions VS,Fishbone, I+O VS, Fishbone, I+O Vital Signs Date Time Temp Pulse Resp B/P (MAP) Pulse Ox O2 Delivery O2 Flow Rate FiO2 01/18/21 07:52 98.0 93 19 114/59 (77) 95 Trach Collar 5.0 28 I&O- Last 24 Hours up to 6 AM 01/18/21 06:00 Intake Total 3980 ml Output Total 1340 ml Balance 2640 ml MARCOS RAO MD Jan 18, 2021 09:23
[2021-01-18 13:20] VITALS: BP 112/54
[2021-01-18 14:00] VITALS: BP 104/52
[2021-01-18] MEDS: SODIUM CHLORIDE 0.9% INJ 10 ML SYR IV SCH ×2 (17:15→21:23)
[2021-01-18 18:53] VITALS: O2SAT 98
[2021-01-18 21:00] VITALS: BP 115/73
[2021-01-18] MEDS: DULoxetine 30 MG CAP (CYMBALTA) PO SCH (21:22)
[2021-01-18] MEDS: ATORVASTATIN 20 MG TAB PO SCH (21:22)
[2021-01-18] MEDS: FERROUS GLUCONATE 324 MG TAB PO SCH (21:22)
[2021-01-18] MEDS ORDERED: ACETAMINOPHEN TAB 650MG DOSE (2X325MG) PO PRN (21:40)
[2021-01-19 01:18] VITALS: O2SAT 97
[2021-01-19] MEDS: ACETAMINOPHEN 650MG ER TAB (TYLENOL ARTHRITIS) PO SCH ×3 (05:35→22:16)
[2021-01-19] MEDS: LEVOTHYROXINE 50MCG TABLET (0.05MG) PO SCH (05:35)
[2021-01-19] MEDS: PERCOCET 5MG/325MG TAB PO PRN ×2 (05:36→22:16)
[2021-01-19] MEDS: SODIUM CHLORIDE 0.9% INJ 10 ML SYR IV SCH ×3 (05:36→22:18)
[2021-01-19 06:28] VITALS: BP 165/78
[2021-01-19] MEDS: HumaLOG INSULIN (NovoLOG) PER UNIT SC SCH ×4 (07:30→21:00)
[2021-01-19] MEDS: SUCRALFATE SUSP 1GM/10ML UD PO SCH ×4 (08:24→22:12)
[2021-01-19] MEDS: SOLIFENACIN 5 MG TAB PO SCH (08:25)
[2021-01-19] MEDS: ASPIRIN 81MG ENTERIC TABLET PO SCH (08:25)
[2021-01-19] MEDS: MAGNESIUM OXIDE 400MG TAB (MAG-OX) PO SCH ×2 (08:26→22:17)
[2021-01-19] MEDS: POTASSIUM CHLORIDE 10 MEQ SR TABLET PO SCH (08:26)
[2021-01-19] MEDS: FOLIC ACID 1 MG TAB PO SCH (08:26)
[2021-01-19] MEDS: BACLOFEN 10 MG TAB PO SCH ×3 (08:26→22:16)
[2021-01-19] MEDS: NYSTATIN 100,000 UNITS/GM TOPICAL PWD 15 GM TOP SCH ×2 (08:27→22:18)
[2021-01-19] MEDS: ENOXAPARIN 40MG/0.4ML SYRINGE (J1650 PER 10MG) SC SCH (08:27)
[2021-01-19] MEDS: PREGABALIN 100 MG CAP (LYRICA) PO SCH ×2 (08:27→22:17)
[2021-01-19] MEDS: SODIUM CHLORIDE 0.9% INJ 10 ML SYR IV PRN ×2 (08:27→08:38)
[2021-01-19] MEDS: PANTOPRAZOLE 40MG TAB (PROTONIX) PO SCH (08:28)
[2021-01-19] MEDS: MORPHINE 4 MG/ML 1ML VIAL/SYRINGE (J2270) IV PRN (08:28)
[2021-01-19] MEDS: ONDANSETRON 4MG/2ML VIAL IV PRN (08:37)
[2021-01-19 09:00] VITALS: O2SAT 100
--- NOTE | 2021-01-19 12:48 | IPNPDOC ---
Text Note Date of Service The patient was seen on 01/19/21. NOTE SUBJECTIVE: -No acute complaints OBJECTIVE: GENERAL APPEARANCE: well-nourished and developed, chronically ill appearing HEENT: NCAT, EOMI, MMM, trach collar in place CARDIOVASCULAR: RRR, no m/r/g LUNGS: CTAB, no crackles or wheezing ABDOMEN: Obese, normoactive sounds, nontender this morning to palpation MUSCULOSKELETAL: unable to move extremities bc of paraplegia INTEGUMENT: has large sacral wound and R and L ischial wounds without copious drainage, no purulence noted or surrounding erythema. Please see wound consult note for exact measurements. PSYCHIATRIC: AOx3 LABORATORY DATA: Reviewed IMAGING: Chest xray IMPRESSION: No acute pulmonary disease.No significant change compared to the prior study. CT abd/pelvis IMPRESSION: 1. Moderate right lower lobe and minimal right middle lobe and left base fibro-atelectatic change. 2. Enlarged main pulmonary artery measuring 43 mm which may be seen with pulmonary hypertension. 3. Pancreatic atrophy for age. 4. Status post cholecystectomy. 5. Wood catheter in the blad vinicio. 6. Colonic diversion with colostomy at the level of the sigmoid with sutured off proximal rectum. 7. Decubitus ulcer over the left ischial tuberosity with osseous changes of the ischial tuberosity consistent with chronic osteomyelitis. There is also a decubitus ulcer over the sacrum centered to the left of midline with erosion at the sacrococcygeal region consistent with osteomyelitis. MICROBIOLOGY: Respiratory panel is neg ASSESSMENT: Ms. Stiles is a 65-year-old W with a history of Paraplegia, Chronic trach collar, Chronic sacral wounds with osteomyelitis, Colostomy, Urinary retention with chronic Wood, 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, NIDDM with neuropathy, Hypothyroidism, GABRIELA, Migraines, Chronic CHF, DLP, HTN, Anxiety/depression, recurrent UTIs & obesity who is admitted for transient hypotension and pain management. PLAN: 1 Hypotension: 2/2 dehydration from vomiting and diarrhea: resolved Less likely due to infection but confounded by chronic urinary colonization and MRSA colonization -s/p 3L NS boluses 2 Vomiting and diarrhea: No diarrhea since admission -GI panel was negative -Zofran PRN -holding laxatives 3 Back pain Likely 2/2 Chronic stage IV sacral wound, stage IV left ischium wound & stage III right ischium wound -continue home baclofen/ pregabalin -Percocet 1Q4HP for moderate pain, 2Q6HP for severe pain, with PRN IV morphine 4mg for severe pain to be administered prior to wound care. - consulted, wounds look good -ID consulted, agreed with no antibiotic therapy 4 Abdominal pain: resolved -UCx culture pending -Exchanged catheter 5 Paraplegia with Chronic trach collar & Colostomy, -Air mattress -colostomy care -urinary catheter care 6 Hypothyroidism -Levothyroxine 7 Acute on chronic anemia with history of GABRIELA and likely AOCI -s/p 2u pRBC -iron supplementation 8. Thrombocytosis: chronic 9. Chronic CHF - Holding Lasix because of soft BPs 10. DLP -Statin 11. Anxiety/depression -Diazepam per home script 12. Class 2 obesity -Complicates care 13. Chronic pressure sacral wounds with osteomyelitis and ischial wounds as well -Wound care consult with Dr. Reed done, with instructions in his note and orders are in for wound care -Adriano BID 14. DM -Hypoglycemia protocol -ACHS SSI and FSBG DVT PROPHYLAXIS: heparin TID DISPOSITION: Medsurg. PFS consulted for safe discharge planning given high degree of readmissions. To give pain Meds for 7d and coordinate a close follow up. VS,Fishbone, I+O VS, Fishbone, I+O Vital Signs Date Time Temp Pulse Resp B/P (MAP) Pulse Ox O2 Delivery O2 Flow Rate FiO2 01/19/21 08:38 14 01/19/21 06:28 97.9 84 165/78 (107) 99 Trach Collar 5.0 28 I&O- Last 24 Hours up to 6 AM 01/19/21 06:00 Intake Total 654 ml Output Total 100 ml Balance 554 ml MARCOS RAO MD Jan 19, 2021 12:48
[2021-01-19 14:00] VITALS: BP 136/87
[2021-01-19 22:00] VITALS: BP 128/71
[2021-01-19] MEDS: DULoxetine 30 MG CAP (CYMBALTA) PO SCH (22:16)
[2021-01-19] MEDS: FERROUS GLUCONATE 324 MG TAB PO SCH (22:17)
[2021-01-19] MEDS: ATORVASTATIN 20 MG TAB PO SCH (22:17)
[2021-01-20 00:16] VITALS: O2SAT 98
[2021-01-20] MEDS: ONDANSETRON 4MG/2ML VIAL IV PRN ×3 (04:05→21:52)
[2021-01-20] MEDS: PERCOCET 5MG/325MG TAB PO PRN ×3 (04:17→21:57)
[2021-01-20] MEDS: ACETAMINOPHEN 650MG ER TAB (TYLENOL ARTHRITIS) PO SCH ×3 (05:54→21:52)
[2021-01-20] MEDS: SODIUM CHLORIDE 0.9% INJ 10 ML SYR IV SCH ×3 (05:54→21:55)
[2021-01-20] MEDS: LEVOTHYROXINE 50MCG TABLET (0.05MG) PO SCH (05:54)
[2021-01-20 06:00] VITALS: BP 121/70
[2021-01-20] MEDS: HumaLOG INSULIN (NovoLOG) PER UNIT SC SCH ×4 (07:11→21:00)
[2021-01-20] MEDS: SUCRALFATE SUSP 1GM/10ML UD PO SCH ×4 (07:20→21:54)
[2021-01-20] MEDS: METOCLOPRAMIDE 10 MG TAB PO PRN (07:33)
[2021-01-20] MEDS: SOLIFENACIN 5 MG TAB PO SCH (10:13)
[2021-01-20] MEDS: PREGABALIN 100 MG CAP (LYRICA) PO SCH ×2 (10:13→21:54)
[2021-01-20] MEDS: POTASSIUM CHLORIDE 10 MEQ SR TABLET PO SCH (10:13)
[2021-01-20] MEDS: BACLOFEN 10 MG TAB PO SCH ×3 (10:14→21:57)
[2021-01-20] MEDS: FOLIC ACID 1 MG TAB PO SCH (10:14)
[2021-01-20] MEDS: PANTOPRAZOLE 40MG TAB (PROTONIX) PO SCH (10:14)
[2021-01-20] MEDS: MAGNESIUM OXIDE 400MG TAB (MAG-OX) PO SCH ×2 (10:14→21:54)
[2021-01-20] MEDS: NYSTATIN 100,000 UNITS/GM TOPICAL PWD 15 GM TOP SCH ×2 (10:15→21:55)
[2021-01-20] MEDS: ASPIRIN 81MG ENTERIC TABLET PO SCH (10:15)
[2021-01-20] MEDS: ENOXAPARIN 40MG/0.4ML SYRINGE (J1650 PER 10MG) SC SCH (10:15)
[2021-01-20] MEDS: SODIUM CHLORIDE 0.9% INJ 10 ML SYR IV PRN (16:52)
[2021-01-20] MEDS: MORPHINE 4 MG/ML 1ML VIAL/SYRINGE (J2270) IV PRN (16:52)
[2021-01-20] MEDS: ATORVASTATIN 20 MG TAB PO SCH (21:52)
[2021-01-20] MEDS: DULoxetine 30 MG CAP (CYMBALTA) PO SCH (21:52)
[2021-01-20] MEDS: FERROUS GLUCONATE 324 MG TAB PO SCH (21:54)
[2021-01-21] MEDS: PERCOCET 5MG/325MG TAB PO PRN (04:17)
[2021-01-21] MEDS: SODIUM CHLORIDE 0.9% INJ 10 ML SYR IV SCH (05:44)
[2021-01-21] MEDS: LEVOTHYROXINE 50MCG TABLET (0.05MG) PO SCH (05:44)
[2021-01-21] MEDS: ACETAMINOPHEN 650MG ER TAB (TYLENOL ARTHRITIS) PO SCH (05:44)
[2021-01-21 06:00] VITALS: BP 116/71
[2021-01-21] MEDS: HumaLOG INSULIN (NovoLOG) PER UNIT SC SCH (07:30)
[2021-01-21] MEDS: PREGABALIN 100 MG CAP (LYRICA) PO SCH (08:59)
[2021-01-21] MEDS: BACLOFEN 10 MG TAB PO SCH (08:59)
[2021-01-21] MEDS: MAGNESIUM OXIDE 400MG TAB (MAG-OX) PO SCH (08:59)
[2021-01-21] MEDS: METOCLOPRAMIDE 10 MG TAB PO PRN (08:59)
[2021-01-21] MEDS: POTASSIUM CHLORIDE 10 MEQ SR TABLET PO SCH (08:59)
[2021-01-21] MEDS: PANTOPRAZOLE 40MG TAB (PROTONIX) PO SCH (08:59)
[2021-01-21] MEDS: ASPIRIN 81MG ENTERIC TABLET PO SCH (08:59)
[2021-01-21] MEDS: SUCRALFATE SUSP 1GM/10ML UD PO SCH (08:59)
[2021-01-21] MEDS: SOLIFENACIN 5 MG TAB PO SCH (09:00)
[2021-01-21] MEDS: MORPHINE 4 MG/ML 1ML VIAL/SYRINGE (J2270) IV PRN (09:00)
[2021-01-21] MEDS: FOLIC ACID 1 MG TAB PO SCH (09:00)
[2021-01-21] MEDS: SODIUM CHLORIDE 0.9% INJ 10 ML SYR IV PRN (09:01)
[2021-01-21] MEDS: ENOXAPARIN 40MG/0.4ML SYRINGE (J1650 PER 10MG) SC SCH (09:01)
[2021-01-21] MEDS: NYSTATIN 100,000 UNITS/GM TOPICAL PWD 15 GM TOP SCH (09:01)
[2021-01-21] MEDS ORDERED: PERCOCET PO (10:14)
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
== END 2021-01-21 11:19 | disposition home or self-care (01) | DRG 391 ==
LOC: EDBD 15:44 → M ED 15:44 → M ED INP 21:56 → ENRESERV 22:44 → M ICU 01-17 02:10 → M PCU 01-17 22:39 → M MSPAV 01-18 12:55
PROVIDERS: ADMIT Internal Medicine; ATTEND Internal Medicine
DX: R11.0 Nausea (principal); L89.154 Pressure ulcer of sacral region, stage 4; L89.324 Pressure ulcer of left buttock, stage 4; L89.313 Pressure ulcer of right buttock, stage 3; G82.20 Paraplegia, unspecified; I50.32 Chronic diastolic (congestive) heart failure; M86.652 Other chronic osteomyelitis, left thigh; R19.7 Diarrhea, unspecified; R33.9 Retention of urine, unspecified; E11.40 Type 2 diabetes mellitus with diabetic neuropathy, unspecified; I11.0 Hypertensive heart disease with heart failure; E03.9 Hypothyroidism, unspecified; D50.9 Iron deficiency anemia, unspecified; I95.9 Hypotension, unspecified; D63.8 Anemia in other chronic diseases classified elsewhere; G43.909 Migraine, unspecified, not intractable, without status migrainosus; I27.20 Pulmonary hypertension, unspecified; F41.9 Anxiety disorder, unspecified; F32.9 Major depressive disorder, single episode, unspecified; E66.9 Obesity, unspecified; Z93.0 Tracheostomy status; Z90.49 Acquired absence of other specified parts of digestive tract; Z93.3 Colostomy status; Z79.82 Long term (current) use of aspirin; Z79.899 Other long term (current) drug therapy; Z88.8 Allergy status to other drugs, medicaments and biological substances; Z86.14 Personal history of Methicillin resistant Staphylococcus aureus infection; Z68.33 Body mass index [BMI] 33.0-33.9, adult

== ENCOUNTER 2021-01-24 11:16 | Inpatient (IN) | payer MEDICARE, OTHER ==
[~2021-01-24] VITALS: Ht 172.7 cm; Wt 123.9 kg
[2021-01-24] MEDS: SUCRALFATE SUSP 1GM/10ML UD PO SCH (02:28)
[2021-01-24] MEDS: BACLOFEN 10 MG TAB PO SCH (02:28)
[~2021-01-24 11:16] MED LIST changes: -KLOR10TA76 PO; +PERCOCET PO; +POTA-136 PO
--- NOTE | 2021-01-24 13:46 | REP ---
INDICATION: SOB; abdominal discomfort COMPARISON: None. TECHNIQUE: Supine and cross-table lateral views of the abdomen and pelvis along with portable semi upright view of the chest. FINDINGS: Upright view of the chest cannot exclude basilar opacities or effusion. The bowel gas pattern is relatively nonspecific with moderately distended air-filled loops of both small and large bowel. Differential diagnosis would include ileus and possible early/partial small bowel obstruction. No obvious pneumoperitoneum. Skeletal structures demonstrate degenerative changes. Evidence for prior cholecystectomy. IMPRESSION: 1. Cannot exclude bibasilar opacities or small pleural effusions. 2. Bowel gas pattern is nonspecific as described above. Differential diagnosis would include ileus and possible early/partial obstruction. <Electronically signed by Sarbjit Parnell > 01/24/21 [id number]
[2021-01-24 14:56] LABS: RSV AMPLIFICATION NEGATIVE (NEGATIVE)
[2021-01-24] MEDS ORDERED: NS 1,000 ML IV SCH (16:15)
[2021-01-24] MEDS ORDERED: ONDANSETRON 4MG/2ML VIAL IV ONE (16:15)
[2021-01-24] MEDS ORDERED: MORPHINE 4 MG/ML 1ML VIAL/SYRINGE (J2270) IV ONE (16:15)
--- NOTE | 2021-01-24 16:39 | REP ---
INDICATION: further evaluate ileus/pleural effusions; abd pain/SOB COMPARISON: None TECHNIQUE: Axial noncontrast images from the thoracic inlet to the upper abdomen with coronal and sagittal reformations. This CT examination was performed using the following dose reduction techniques: Automated exposure control, adjustment of mA and/or kv according to the patient's size, and use of iterative reconstruction technique. FINDINGS: Chronic changes are appreciated with superimposed pulmonary vascular congestion and moderate areas of atelectasis/consolidation primarily noted in the right lower lobe/right middle lobe and left base similar to prior examination. No pneumothorax. No significant effusion. Tracheostomy in stable satisfactory position. Tracheobronchial tree appears patent. Cardiomegaly noted without pericardial effusion. Atherosclerotic changes to the thoracic aorta noted without aneurysm. Evaluation for adenopathy is significantly limited although reactive nodes are suspected within the mediastinum. IMPRESSION: Pulmonary vascular ingestion and moderate areas of consolidation/atelectasis similar to prior examination. <Electronically signed by Sarbjit Parnell > 01/24/21 [id number]
--- NOTE | 2021-01-24 16:42 | REP ---
INDICATION: further evaluate ileus/pleural effusions; abd pain/SOB. COMPARISON: Multiple the latest 01/17/2021 a contrast-enhanced exam TECHNIQUE: Standard helical technique without contrast FINDINGS: Limited evaluation of the liver, spleen, pancreas, adrenal glands, and kidneys show no significant changes from the prior exam. There are bilateral renal cysts status quo. There is no change in the abdominal aorta or para-aortic regions. There is no significant change in appearance of the bowel loops or the mesenteries. There is a left-sided colostomy status quo. A Wood balloon catheter is again seen within the urinary bladder. There is no evidence of free fluid or free air. There is no significant change in appearance of the imaged osseous structures. Left gluteal decubitus ulcer status quo with related chronic osseous changes and osteolysis. Chronic sacrococcygeal changes as well consistent with chronic osteomyelitis status quo. IMPRESSION: No significant change compared to 01/17/2021 other than technique. Chronic changes as described above. <Electronically signed by Melquiades Evans > 01/24/21 [id number]
[2021-01-24 17:21] LABS: ALBUMIN 1.3 GM/DL (3.2-5.2); ALT/SGPT 13 U/L (12-78); BILIRUBIN,DIRECT < 0.1 MG/DL (0.0-0.2); BILIRUBIN,TOTAL 0.3 MG/DL (0.2-1.0); BLOOD UREA NITROGEN 10 MG/DL (7-18); CALCIUM LEVEL 8.2 MG/DL (8.8-10.2); CARBON DIOXIDE LEVEL 33 MEQ/L (21-32); CHLORIDE LEVEL 101 MEQ/L (98-107); CPK CREATINE PHOSPHOKINASE 37 U/L (26-192); GLOMERULAR FILTRATION RATE > 60.0 (>45); GLUCOSE, FASTING 91 MG/DL (70-100); MB/CK RELATIVE INDEX 5.41 (< OR =4); POTASSIUM SERUM 3.6 MEQ/L (3.5-5.1); SODIUM LEVEL 139 MEQ/L (136-145); TOTAL PROTEIN 6.3 GM/DL (6.4-8.2); TROPONIN I < 0.02 NG/ML (< 0.10)
--- NOTE | 2021-01-24 19:06 | ECGEPIP ---
[facility] - ED Test Date: 2021-01-24 Pat Name: HANNA GARVIN Department: Room: - Gender: Female Instructor Nurse: JORDIN : 1955 Requested By: NETTA BOONE Order Number: [id number] Reading MD: Alisha Lopez Measurements Intervals [place] Rate: 81 P: 42 UT: 146 QRS: -10 QRSD: 88 T: 18 QT: 382 QTc: 443 Interpretive Statements Normal sinus rhythm Nonspecific ST and T wave abnormality prwp baseline artifact may affect interpretation Electronically Signed on 01-24-2021 19:05:46 EDT by Alisha Lopez
[2021-01-24 19:17] LABS: BASO # 0.1 10^3/uL (0.0-0.2); BASO % 0.9 % (0.0-1.0); EOS # 0.4 10^3/uL (0.0-0.5); EOS % 3.2 % (0.0-3.0); HEMATOCRIT 35.6 % (36.0-47.0); LYMPH # 1.7 10^3/uL (1.5-5.0); LYMPH % 13.3 % (24.0-44.0); MEAN CORPUSCULAR HEMOGLOBIN 25.4 pg (27.0-33.0); MEAN CORPUSCULAR HGB CONC 30.9 g/dl (32.0-36.5); MEAN CORPUSCULAR VOLUME 82.2 fl (80.0-96.0); MONO # 1.6 10^3/uL (0.0-0.8); MONO % 11.9 % (2.0-8.0); NEUTROPHILS # 9.1 10^3/uL (1.5-8.5); NEUTROPHILS % 69.9 % (36.0-66.0); PLATELET COUNT, AUTOMATED 627 10^3/uL (150-450); RED BLOOD COUNT 4.33 10^6/uL (4.00-5.40)
[2021-01-24 20:05] LABS: WHITE BLOOD COUNT 13.1 10^3/uL (4.0-10.0)
[2021-01-24] MEDS ORDERED: DEXTROSE 50% 50 ML SYRINGE IV PRN (20:45)
[2021-01-24] MEDS ORDERED: GLUCOSE 4GM CHEW TABLET PO PRN (20:45)
[2021-01-24] MEDS ORDERED: GLUCAGON INJ 1MG VIAL SC PRN (20:45)
[2021-01-24] MEDS ORDERED: PREG100CA PO (20:56)
[2021-01-24] MEDS ORDERED: HOME MED LIST COMPLETE! XX SCH (21:00)
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
[2021-01-24] MEDS ORDERED: POLYVINYL ALCOHOL OPHTH SOLN 15 ML(LIQUITEARS) OU PRN (22:25)
[2021-01-24] MEDS: MORPHINE 2 MG/ML 1ML VIAL (J2270) IV PRN (22:31)
[2021-01-25 01:01] VITALS: BP 117/67
[2021-01-25] MEDS: NYSTATIN 100,000 UNITS/GM TOPICAL PWD 15 GM TOP SCH ×3 (02:09→21:36)
[2021-01-25] MEDS: DOCUSATE SODIUM 100MG CAPSULE PO SCH ×3 (02:09→21:34)
[2021-01-25] MEDS: DULoxetine 30MG CAPSULE (CYMBALTA) PO SCH ×2 (02:09→21:35)
[2021-01-25] MEDS: ATORVASTATIN 20 MG TAB PO SCH ×2 (02:09→21:35)
[2021-01-25] MEDS: FERROUS GLUCONATE 324 MG TAB PO SCH ×2 (02:09→21:35)
[2021-01-25] MEDS: SENNA 8.6 MG TAB (SENOKOT) PO SCH ×2 (02:10→21:35)
[2021-01-25] MEDS: PREGABALIN 100 MG CAP (LYRICA) PO SCH ×3 (02:10→21:35)
[2021-01-25] MEDS: ACETAMINOPHEN TAB 650MG DOSE (2X325MG) PO PRN (03:53)
[2021-01-25] MEDS: MORPHINE 2 MG/ML 1ML VIAL (J2270) IV PRN (04:55)
[2021-01-25] MEDS: LEVOTHYROXINE 50MCG TABLET (0.05MG) PO SCH (05:35)
[2021-01-25 06:00] VITALS: BP 121/70
[2021-01-25 06:23] LABS: BASO # 0.1 10^3/uL (0.0-0.2); BASO % 0.8 % (0.0-1.0); EOS # 0.4 10^3/uL (0.0-0.5); EOS % 3.4 % (0.0-3.0); HEMATOCRIT 31.1 % (36.0-47.0); HEMOGLOBIN 9.7 g/dl (12.0-15.5); LYMPH # 1.5 10^3/uL (1.5-5.0); LYMPH % 12.1 % (24.0-44.0); MEAN CORPUSCULAR HEMOGLOBIN 25.3 pg (27.0-33.0); MEAN CORPUSCULAR HGB CONC 31.2 g/dl (32.0-36.5); MONO # 1.5 10^3/uL (0.0-0.8); MONO % 11.6 % (2.0-8.0); NEUTROPHILS # 9.1 10^3/uL (1.5-8.5); NEUTROPHILS % 71.5 % (36.0-66.0); RED BLOOD COUNT 3.84 10^6/uL (4.00-5.40)
[2021-01-25 06:31] LABS: PLATELET COUNT, AUTOMATED 492 10^3/uL (150-450); WHITE BLOOD COUNT 12.7 10^3/uL (4.0-10.0)
[2021-01-25] MEDS: HumaLOG INSULIN (NovoLOG) PER UNIT SC SCH ×4 (07:30→21:35)
[2021-01-25 07:31] LABS: BLOOD UREA NITROGEN 9 MG/DL (7-18); CALCIUM LEVEL 7.5 MG/DL (8.8-10.2); CARBON DIOXIDE LEVEL 28 MEQ/L (21-32); CHLORIDE LEVEL 102 MEQ/L (98-107); CREATININE FOR GFR 0.23 MG/DL (0.55-1.30); GLOMERULAR FILTRATION RATE > 60.0 (>45); GLUCOSE, FASTING 93 MG/DL (70-100); POTASSIUM SERUM 3.5 MEQ/L (3.5-5.1); SODIUM LEVEL 137 MEQ/L (136-145)
[2021-01-25] MEDS: SUCRALFATE SUSP 1GM/10ML UD PO SCH ×4 (08:38→21:35)
[2021-01-25] MEDS: ENOXAPARIN 40MG/0.4ML SYRINGE (J1650 PER 10MG) SC SCH (08:38)
[2021-01-25] MEDS: LACTULOSE 20 GM/30 ML SYRUP UD PO SCH (08:38)
[2021-01-25 08:39] VITALS: BP 138/85
[2021-01-25] MEDS: TORSEMIDE 20 MG TAB PO SCH ×2 (08:39→17:07)
[2021-01-25] MEDS: POTASSIUM CHLORIDE 10MEQ SR TABLET PO SCH (08:39)
[2021-01-25] MEDS: FOLIC ACID 1 MG TAB PO SCH (08:41)
[2021-01-25] MEDS: ASPIRIN 81MG ENTERIC TABLET PO SCH (08:42)
[2021-01-25] MEDS: BACLOFEN 10 MG TAB PO SCH ×3 (08:42→21:36)
[2021-01-25] MEDS: PANTOPRAZOLE 40MG TAB (PROTONIX) PO SCH (08:42)
[2021-01-25] MEDS: SOLIFENACIN 5 MG TAB PO SCH (08:42)
[2021-01-25] MEDS: MAGNESIUM OXIDE 400MG TAB (MAG-OX) PO SCH ×2 (08:42→21:35)
[2021-01-25] MEDS: CYANOCOBALAMIN 250 MCG TABLET PO SCH (08:43)
[2021-01-25] MEDS: BUPRENORPHINE/NALOXONE 2-0.5MG SUBLINGUAL TABLET(SUBOXONE) SL SCH ×2 (09:00→21:35)
[2021-01-25] MEDS ORDERED: PREGABALIN 100 MG CAP (LYRICA) PO SCH (09:00)
[2021-01-25] MEDS: METOCLOPRAMIDE 10 MG TAB PO PRN (09:01)
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
[2021-01-25] MEDS: ONDANSETRON 4MG/2ML VIAL IV PRN (13:10)
[2021-01-25] MEDS: diazePAM 2 MG TAB PO PRN (13:15)
[2021-01-25 17:07] VITALS: BP 130/82
[2021-01-26] MEDS: LEVOTHYROXINE 50MCG TABLET (0.05MG) PO SCH (05:53)
[2021-01-26 06:00] VITALS: BP 112/63
[2021-01-26 06:21] LABS: BASO # 0.1 10^3/uL (0.0-0.2); BASO % 0.6 % (0.0-1.0); EOS # 0.9 10^3/uL (0.0-0.5); EOS % 4.8 % (0.0-3.0); LYMPH # 2.4 10^3/uL (1.5-5.0); LYMPH % 13.4 % (24.0-44.0); MEAN CORPUSCULAR HEMOGLOBIN 25.3 pg (27.0-33.0); MEAN CORPUSCULAR VOLUME 81.5 fl (80.0-96.0); MONO # 1.7 10^3/uL (0.0-0.8); MONO % 9.3 % (2.0-8.0); NEUTROPHILS # 12.6 10^3/uL (1.5-8.5); NEUTROPHILS % 71.2 % (36.0-66.0); PLATELET COUNT, AUTOMATED 554 10^3/uL (150-450); RED BLOOD COUNT 3.56 10^6/uL (4.00-5.40)
[2021-01-26 06:45] LABS: BLOOD UREA NITROGEN 10 MG/DL (7-18); CALCIUM LEVEL 7.4 MG/DL (8.8-10.2); CARBON DIOXIDE LEVEL 28 MEQ/L (21-32); CHLORIDE LEVEL 98 MEQ/L (98-107); CREATININE FOR GFR 0.49 MG/DL (0.55-1.30); GLOMERULAR FILTRATION RATE > 60.0 (>45); GLUCOSE, FASTING 139 MG/DL (70-100); POTASSIUM SERUM 3.5 MEQ/L (3.5-5.1); SODIUM LEVEL 135 MEQ/L (136-145)
[2021-01-26 06:48] LABS: WHITE BLOOD COUNT 17.7 10^3/uL (4.0-10.0)
[2021-01-26] MEDS: SUCRALFATE SUSP 1GM/10ML UD PO SCH ×4 (08:06→20:45)
[2021-01-26] MEDS: HumaLOG INSULIN (NovoLOG) PER UNIT SC SCH ×4 (08:07→21:00)
[2021-01-26] MEDS: LACTULOSE 20 GM/30 ML SYRUP UD PO SCH (08:08)
[2021-01-26] MEDS: TORSEMIDE 20 MG TAB PO SCH (08:14)
[2021-01-26] MEDS: ENOXAPARIN 40MG/0.4ML SYRINGE (J1650 PER 10MG) SC SCH (08:14)
[2021-01-26] MEDS: ASPIRIN 81MG ENTERIC TABLET PO SCH (08:15)
[2021-01-26] MEDS: SOLIFENACIN 5 MG TAB PO SCH (08:15)
[2021-01-26] MEDS: MAGNESIUM OXIDE 400MG TAB (MAG-OX) PO SCH ×2 (08:16→20:46)
[2021-01-26] MEDS: PANTOPRAZOLE 40MG TAB (PROTONIX) PO SCH (08:16)
[2021-01-26] MEDS: DOCUSATE SODIUM 100MG CAPSULE PO SCH ×2 (08:16→20:46)
[2021-01-26] MEDS: POTASSIUM CHLORIDE 10MEQ SR TABLET PO SCH (08:17)
[2021-01-26] MEDS: PREGABALIN 100 MG CAP (LYRICA) PO SCH ×2 (08:18→20:46)
[2021-01-26] MEDS: CYANOCOBALAMIN 250 MCG TABLET PO SCH (08:19)
[2021-01-26] MEDS: FOLIC ACID 1 MG TAB PO SCH (08:19)
[2021-01-26] MEDS: BACLOFEN 10 MG TAB PO SCH ×3 (08:19→20:46)
[2021-01-26] MEDS: NYSTATIN 100,000 UNITS/GM TOPICAL PWD 15 GM TOP SCH ×2 (08:20→20:46)
[2021-01-26] MEDS: ONDANSETRON 4MG/2ML VIAL IV PRN (08:24)
[2021-01-26] MEDS ORDERED: NS 500 ML IV ONE (09:20)
[2021-01-26] MEDS: CEFEPIME HCL 1 GM in D5W MINI-BAG PLUS 50 ML IV SCH ×2 (11:22→23:37)
[2021-01-26] MEDS: BUPRENORPHINE/NALOXONE 2-0.5MG SUBLINGUAL TABLET(SUBOXONE) SL SCH ×2 (11:23→20:45)
[2021-01-26] MEDS ORDERED: NS 1,000 ML IV ONE (13:35)
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
[2021-01-26 14:00] VITALS: BP 126/80
[2021-01-26] MEDS: LINEZOLID 600 MG in IV 1 EA IV SCH (14:20)
[2021-01-26] MEDS ORDERED: NS 1,000 ML IV SCH (18:20)
[2021-01-26] MEDS: FERROUS GLUCONATE 324 MG TAB PO SCH (20:46)
[2021-01-26] MEDS: SENNA 8.6 MG TAB (SENOKOT) PO SCH (20:46)
[2021-01-26] MEDS: DULoxetine 30MG CAPSULE (CYMBALTA) PO SCH (20:46)
[2021-01-26] MEDS: ATORVASTATIN 20 MG TAB PO SCH (20:46)
[2021-01-26 22:00] VITALS: BP 136/69
[2021-01-27] MEDS: LINEZOLID 600 MG in IV 1 EA IV SCH ×2 (01:24→12:33)
[2021-01-27] MEDS: LEVOTHYROXINE 50MCG TABLET (0.05MG) PO SCH (06:10)
[2021-01-27 06:32] LABS: BASO # 0.1 10^3/uL (0.0-0.2); BASO % 0.7 % (0.0-1.0); EOS # 0.9 10^3/uL (0.0-0.5); EOS % 6.2 % (0.0-3.0); HEMATOCRIT 28.2 % (36.0-47.0); HEMOGLOBIN 8.7 g/dl (12.0-15.5); LYMPH # 2.1 10^3/uL (1.5-5.0); LYMPH % 13.6 % (24.0-44.0); MEAN CORPUSCULAR HEMOGLOBIN 25.1 pg (27.0-33.0); MEAN CORPUSCULAR HGB CONC 30.9 g/dl (32.0-36.5); MEAN CORPUSCULAR VOLUME 81.5 fl (80.0-96.0); MONO # 1.5 10^3/uL (0.0-0.8); MONO % 9.8 % (2.0-8.0); NEUTROPHILS # 10.4 10^3/uL (1.5-8.5); PLATELET COUNT, AUTOMATED 552 10^3/uL (150-450); RED BLOOD COUNT 3.46 10^6/uL (4.00-5.40); WHITE BLOOD COUNT 15.1 10^3/uL (4.0-10.0)
[2021-01-27 06:35] VITALS: BP 127/70
[2021-01-27 06:58] LABS: BLOOD UREA NITROGEN 10 MG/DL (7-18); CALCIUM LEVEL 7.5 MG/DL (8.8-10.2); CARBON DIOXIDE LEVEL 31 MEQ/L (21-32); CHLORIDE LEVEL 99 MEQ/L (98-107); GLOMERULAR FILTRATION RATE > 60.0 (>45); GLUCOSE, FASTING 85 MG/DL (70-100); POTASSIUM SERUM 4.4 MEQ/L (3.5-5.1); SODIUM LEVEL 135 MEQ/L (136-145)
[2021-01-27] MEDS: HumaLOG INSULIN (NovoLOG) PER UNIT SC SCH ×4 (07:29→21:00)
[2021-01-27] MEDS: ONDANSETRON 4MG/2ML VIAL IV PRN ×2 (07:38→15:49)
[2021-01-27] MEDS: SUCRALFATE SUSP 1GM/10ML UD PO SCH ×4 (07:38→21:08)
[2021-01-27] MEDS: BUPRENORPHINE/NALOXONE 2-0.5MG SUBLINGUAL TABLET(SUBOXONE) SL SCH ×2 (08:51→21:08)
[2021-01-27] MEDS: NYSTATIN 100,000 UNITS/GM TOPICAL PWD 15 GM TOP SCH ×2 (08:51→21:08)
[2021-01-27] MEDS: LACTULOSE 20 GM/30 ML SYRUP UD PO SCH (08:51)
[2021-01-27] MEDS: SOLIFENACIN 5 MG TAB PO SCH (08:51)
[2021-01-27] MEDS: POTASSIUM CHLORIDE 10MEQ SR TABLET PO SCH (08:52)
[2021-01-27] MEDS: BACLOFEN 10 MG TAB PO SCH ×3 (08:52→21:08)
[2021-01-27] MEDS: CYANOCOBALAMIN 250 MCG TABLET PO SCH (08:52)
[2021-01-27] MEDS: FOLIC ACID 1 MG TAB PO SCH (08:52)
[2021-01-27] MEDS: MAGNESIUM OXIDE 400MG TAB (MAG-OX) PO SCH ×2 (08:52→21:08)
[2021-01-27] MEDS: PREGABALIN 100 MG CAP (LYRICA) PO SCH ×2 (08:52→21:07)
[2021-01-27] MEDS: DOCUSATE SODIUM 100MG CAPSULE PO SCH ×2 (08:52→21:07)
[2021-01-27] MEDS: ASPIRIN 81MG ENTERIC TABLET PO SCH (08:52)
[2021-01-27] MEDS: PANTOPRAZOLE 40MG TAB (PROTONIX) PO SCH (08:52)
[2021-01-27] MEDS: ENOXAPARIN 40MG/0.4ML SYRINGE (J1650 PER 10MG) SC SCH (08:53)
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
[2021-01-27] MEDS: CEFEPIME HCL 1 GM in D5W MINI-BAG PLUS 50 ML IV SCH ×2 (11:22→23:18)
[2021-01-27 14:00] VITALS: BP 124/70
[2021-01-27] MEDS: SENNA 8.6 MG TAB (SENOKOT) PO SCH (21:07)
[2021-01-27] MEDS: FERROUS GLUCONATE 324 MG TAB PO SCH (21:07)
[2021-01-27] MEDS: DULoxetine 30MG CAPSULE (CYMBALTA) PO SCH (21:08)
[2021-01-27] MEDS: ATORVASTATIN 20 MG TAB PO SCH (21:08)
[2021-01-27 22:00] VITALS: BP 122/72
[2021-01-28] MEDS: LINEZOLID 600 MG in IV 1 EA IV SCH ×2 (00:40→13:30)
[2021-01-28] MEDS: LEVOTHYROXINE 50MCG TABLET (0.05MG) PO SCH (05:36)
[2021-01-28 06:00] VITALS: BP 122/72
[2021-01-28] MEDS: HumaLOG INSULIN (NovoLOG) PER UNIT SC SCH ×4 (07:30→21:00)
[2021-01-28] MEDS: SUCRALFATE SUSP 1GM/10ML UD PO SCH ×4 (07:48→21:05)
[2021-01-28] MEDS: ONDANSETRON 4MG/2ML VIAL IV PRN ×2 (07:48→18:46)
[2021-01-28 07:54] LABS: BASO # 0.1 10^3/uL (0.0-0.2); BASO % 0.8 % (0.0-1.0); EOS # 1.4 10^3/uL (0.0-0.5); EOS % 10.9 % (0.0-3.0); HEMATOCRIT 27.7 % (36.0-47.0); HEMOGLOBIN 8.5 g/dl (12.0-15.5); LYMPH # 1.7 10^3/uL (1.5-5.0); MEAN CORPUSCULAR HEMOGLOBIN 25.3 pg (27.0-33.0); MEAN CORPUSCULAR HGB CONC 30.7 g/dl (32.0-36.5); MEAN CORPUSCULAR VOLUME 82.4 fl (80.0-96.0); MONO # 1.3 10^3/uL (0.0-0.8); MONO % 10.1 % (2.0-8.0); NEUTROPHILS # 8.2 10^3/uL (1.5-8.5); NEUTROPHILS % 64.4 % (36.0-66.0); PLATELET COUNT, AUTOMATED 513 10^3/uL (150-450); RED BLOOD COUNT 3.36 10^6/uL (4.00-5.40); WHITE BLOOD COUNT 12.7 10^3/uL (4.0-10.0)
[2021-01-28 08:00] VITALS: BP 121/72
[2021-01-28 08:08] LABS: BLOOD UREA NITROGEN 9 MG/DL (7-18); CALCIUM LEVEL 7.5 MG/DL (8.8-10.2); CARBON DIOXIDE LEVEL 27 MEQ/L (21-32); CHLORIDE LEVEL 102 MEQ/L (98-107); CREATININE FOR GFR 0.25 MG/DL (0.55-1.30); GLOMERULAR FILTRATION RATE > 60.0 (>45); GLUCOSE, FASTING 95 MG/DL (70-100); POTASSIUM SERUM 4.7 MEQ/L (3.5-5.1); SODIUM LEVEL 136 MEQ/L (136-145)
[2021-01-28] MEDS: SOLIFENACIN 5 MG TAB PO SCH (09:34)
[2021-01-28] MEDS: ASPIRIN 81MG ENTERIC TABLET PO SCH (09:34)
[2021-01-28] MEDS: ENOXAPARIN 40MG/0.4ML SYRINGE (J1650 PER 10MG) SC SCH (09:34)
[2021-01-28] MEDS: CYANOCOBALAMIN 250 MCG TABLET PO SCH (09:35)
[2021-01-28] MEDS: MAGNESIUM OXIDE 400MG TAB (MAG-OX) PO SCH ×2 (09:35→21:09)
[2021-01-28] MEDS: FOLIC ACID 1 MG TAB PO SCH (09:35)
[2021-01-28] MEDS: DOCUSATE SODIUM 100MG CAPSULE PO SCH ×2 (09:35→21:05)
[2021-01-28] MEDS: PANTOPRAZOLE 40MG TAB (PROTONIX) PO SCH (09:35)
[2021-01-28] MEDS: NYSTATIN 100,000 UNITS/GM TOPICAL PWD 15 GM TOP SCH ×2 (09:36→21:09)
[2021-01-28] MEDS: BACLOFEN 10 MG TAB PO SCH ×3 (09:36→21:07)
[2021-01-28] MEDS: LACTULOSE 20 GM/30 ML SYRUP UD PO SCH (09:36)
[2021-01-28] MEDS: PREGABALIN 100 MG CAP (LYRICA) PO SCH ×2 (09:43→21:07)
[2021-01-28] MEDS: BUPRENORPHINE/NALOXONE 2-0.5MG SUBLINGUAL TABLET(SUBOXONE) SL SCH ×2 (09:43→21:08)
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
[2021-01-28] MEDS: CEFEPIME HCL 1 GM in D5W MINI-BAG PLUS 50 ML IV SCH ×2 (11:41→22:15)
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
[2021-01-28] MEDS: SENNA 8.6 MG TAB (SENOKOT) PO SCH (21:05)
[2021-01-28] MEDS: DULoxetine 30MG CAPSULE (CYMBALTA) PO SCH (21:05)
[2021-01-28] MEDS: ATORVASTATIN 20 MG TAB PO SCH (21:06)
[2021-01-28] MEDS: FERROUS GLUCONATE 324 MG TAB PO SCH (21:08)
[2021-01-28 22:00] VITALS: BP 124/79
[2021-01-29] MEDS: LINEZOLID 600 MG in IV 1 EA IV SCH (00:26)
[2021-01-29 06:00] VITALS: BP 118/75
[2021-01-29] MEDS: LEVOTHYROXINE 50MCG TABLET (0.05MG) PO SCH (06:09)
[2021-01-29 06:24] LABS: BASO # 0.1 10^3/uL (0.0-0.2); BASO % 0.8 % (0.0-1.0); EOS # 1.6 10^3/uL (0.0-0.5); EOS % 11.5 % (0.0-3.0); HEMATOCRIT 30.5 % (36.0-47.0); HEMOGLOBIN 9.3 g/dl (12.0-15.5); LYMPH # 1.8 10^3/uL (1.5-5.0); LYMPH % 12.7 % (24.0-44.0); MEAN CORPUSCULAR HEMOGLOBIN 25.2 pg (27.0-33.0); MEAN CORPUSCULAR HGB CONC 30.5 g/dl (32.0-36.5); MEAN CORPUSCULAR VOLUME 82.7 fl (80.0-96.0); MONO # 1.5 10^3/uL (0.0-0.8); MONO % 10.3 % (2.0-8.0); NEUTROPHILS % 63.8 % (36.0-66.0); PLATELET COUNT, AUTOMATED 604 10^3/uL (150-450); RED BLOOD COUNT 3.69 10^6/uL (4.00-5.40)
[2021-01-29 06:51] LABS: BLOOD UREA NITROGEN 8 MG/DL (7-18); CALCIUM LEVEL 7.9 MG/DL (8.8-10.2); CARBON DIOXIDE LEVEL 29 MEQ/L (21-32); CHLORIDE LEVEL 100 MEQ/L (98-107); CREATININE FOR GFR 0.31 MG/DL (0.55-1.30); GLOMERULAR FILTRATION RATE > 60.0 (>45); GLUCOSE, FASTING 87 MG/DL (70-100); POTASSIUM SERUM 4.8 MEQ/L (3.5-5.1); SODIUM LEVEL 135 MEQ/L (136-145)
[2021-01-29] MEDS: TOBRAMYCIN SULF IV SCH ×2 (10:05→21:35)
[2021-01-29] MEDS: D5W IV SCH ×2 (10:05→21:35)
[2021-01-29] MEDS: LACTULOSE 20 GM/30 ML SYRUP UD PO SCH (10:08)
[2021-01-29] MEDS: PANTOPRAZOLE 40MG TAB (PROTONIX) PO SCH (10:08)
[2021-01-29] MEDS: ASPIRIN 81MG ENTERIC TABLET PO SCH (10:08)
[2021-01-29] MEDS: SUCRALFATE SUSP 1GM/10ML UD PO SCH ×4 (10:08→21:33)
[2021-01-29] MEDS: MAGNESIUM OXIDE 400MG TAB (MAG-OX) PO SCH ×2 (10:08→21:36)
[2021-01-29] MEDS: HumaLOG INSULIN (NovoLOG) PER UNIT SC SCH ×4 (10:08→21:00)
[2021-01-29] MEDS: PREGABALIN 100 MG CAP (LYRICA) PO SCH ×2 (10:08→21:36)
[2021-01-29] MEDS: BACLOFEN 10 MG TAB PO SCH ×3 (10:09→21:37)
[2021-01-29] MEDS: SOLIFENACIN 5 MG TAB PO SCH (10:09)
[2021-01-29] MEDS: CYANOCOBALAMIN 250 MCG TABLET PO SCH (10:09)
[2021-01-29] MEDS: NYSTATIN 100,000 UNITS/GM TOPICAL PWD 15 GM TOP SCH ×2 (10:09→21:34)
[2021-01-29] MEDS: DOCUSATE SODIUM 100MG CAPSULE PO SCH ×2 (10:09→21:36)
[2021-01-29] MEDS: FOLIC ACID 1 MG TAB PO SCH (10:09)
[2021-01-29] MEDS: BUPRENORPHINE/NALOXONE 2-0.5MG SUBLINGUAL TABLET(SUBOXONE) SL SCH ×2 (10:12→21:39)
[2021-01-29] MEDS ORDERED: LIDOCAINE 1% MDV 20ML VIAL As Ordered ONE (11:07)
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
[2021-01-29 14:00] VITALS: BP 117/74
[2021-01-29] MEDS: ENOXAPARIN 40MG/0.4ML SYRINGE (J1650 PER 10MG) SC SCH (14:32)
--- NOTE | 2021-01-29 16:28 | REP ---
INDICATION: Long-term IV access COMPARISON: None TECHNIQUE: The procedure was performed under the direct supervision of Dr. Hull. The risks and benefits of the procedure were explained to the patient and informed consent was obtained. The right basilic vein was localized using ultrasound guidance. The skin was prepped and draped in a sterile fashion. 1 mL of 1% lidocaine was used as a local anesthetic. Using ultrasound guidance the basilic vein was cannulated and a 0.018 guidewire was inserted, however, it could not be passed beyond the axillary region. The needle was removed and the right brachial vein was localized using ultrasound guidance. 1 mL of 1% lidocaine was used as a local anesthetic. Using ultrasound guidance the brachial vein was cannulated and a 0.018 guidewire was inserted and advanced to the SVC using fluoroscopic guidance and last image hold technology. The needle was removed and a 5 Tajik peel-away sheath was inserted however was not able to be inserted all the way. The sheath and guidewire were then removed. The right cephalic vein was localized using ultrasound guidance. 1 mL of 1% lidocaine was used as a local anesthetic. Using ultrasound guidance the cephalic vein was cannulated and a 0.018 guidewire was inserted and advanced to the SVC using fluoroscopic guidance. The needle was removed and the 5 Tajik dilator and peel-away sheath was inserted over the guidewire. A 5 Tajik dual lumen catheter was cut to a length of 44 cm. The dilator was removed and the catheter was inserted over the guidewire with the tip ending in the SVC. The peel-away sheath was removed and the catheter was flushed with heparinized saline as per hospital protocol. The catheter was affixed to the skin and a sterile dressing was applied. The patient tolerated the procedure well and there were no immediate complications. Estimated blood loss: Less than 1 mL 1.6 minutes of fluoroscopy time was utilized for this procedure. FINDINGS: None IMPRESSION: PICC line insertion right cephalic vein with the tip ending in the SVC. <Electronically signed by Sohail Cooper > 01/29/21 1607 <Electronically signed by Bishop Hull > 01/29/21 [id number]
[2021-01-29] MEDS: SODIUM CHLORIDE 0.9% INJ 10 ML SYR IV SCH (18:00)
[2021-01-29] MEDS: SENNA 8.6 MG TAB (SENOKOT) PO SCH (21:35)
[2021-01-29] MEDS: ATORVASTATIN 20 MG TAB PO SCH (21:35)
[2021-01-29] MEDS: DULoxetine 30MG CAPSULE (CYMBALTA) PO SCH (21:37)
[2021-01-29] MEDS: FERROUS GLUCONATE 324 MG TAB PO SCH (21:38)
[2021-01-29 22:31] VITALS: BP 119/73
[2021-01-29] MEDS: SODIUM CHLORIDE 0.9% INJ 10 ML SYR IV PRN (23:01)
[2021-01-30] MEDS: LEVOTHYROXINE 50MCG TABLET (0.05MG) PO SCH (05:59)
[2021-01-30 06:00] VITALS: BP 109/58
[2021-01-30] MEDS: SODIUM CHLORIDE 0.9% INJ 10 ML SYR IV SCH ×3 (06:00→17:33)
[2021-01-30 06:41] LABS: BLOOD UREA NITROGEN 6 MG/DL (7-18); CARBON DIOXIDE LEVEL 32 MEQ/L (21-32); CHLORIDE LEVEL 100 MEQ/L (98-107); CREATININE FOR GFR 0.22 MG/DL (0.55-1.30); GLOMERULAR FILTRATION RATE > 60.0 (>45); GLUCOSE, FASTING 84 MG/DL (70-100); SODIUM LEVEL 134 MEQ/L (136-145)
[2021-01-30 06:42] LABS: BASO # 0.1 10^3/uL (0.0-0.2); BASO % 0.9 % (0.0-1.0); EOS # 1.2 10^3/uL (0.0-0.5); EOS % 9.4 % (0.0-3.0); HEMOGLOBIN 9.4 g/dl (12.0-15.5); LYMPH # 1.8 10^3/uL (1.5-5.0); LYMPH % 13.9 % (24.0-44.0); MEAN CORPUSCULAR HEMOGLOBIN 24.9 pg (27.0-33.0); MEAN CORPUSCULAR HGB CONC 30.3 g/dl (32.0-36.5); MONO # 1.4 10^3/uL (0.0-0.8); MONO % 10.8 % (2.0-8.0); NEUTROPHILS # 8.3 10^3/uL (1.5-8.5); NEUTROPHILS % 64.2 % (36.0-66.0); PLATELET COUNT, AUTOMATED 654 10^3/uL (150-450); RED BLOOD COUNT 3.78 10^6/uL (4.00-5.40); WHITE BLOOD COUNT 12.9 10^3/uL (4.0-10.0)
[2021-01-30] MEDS: HumaLOG INSULIN (NovoLOG) PER UNIT SC SCH ×4 (07:30→21:00)
[2021-01-30] MEDS: SUCRALFATE SUSP 1GM/10ML UD PO SCH ×4 (07:30→21:12)
[2021-01-30] MEDS: ENOXAPARIN 40MG/0.4ML SYRINGE (J1650 PER 10MG) SC SCH (09:59)
[2021-01-30] MEDS: LACTULOSE 20 GM/30 ML SYRUP UD PO SCH (09:59)
[2021-01-30] MEDS: ASPIRIN 81MG ENTERIC TABLET PO SCH (09:59)
[2021-01-30] MEDS: SOLIFENACIN 5 MG TAB PO SCH (10:00)
[2021-01-30] MEDS: FOLIC ACID 1 MG TAB PO SCH (10:01)
[2021-01-30] MEDS: BUPRENORPHINE/NALOXONE 2-0.5MG SUBLINGUAL TABLET(SUBOXONE) SL SCH ×2 (10:01→21:14)
[2021-01-30] MEDS: PANTOPRAZOLE 40MG TAB (PROTONIX) PO SCH (10:01)
[2021-01-30] MEDS: BACLOFEN 10 MG TAB PO SCH ×3 (10:02→21:13)
[2021-01-30] MEDS: CYANOCOBALAMIN 250 MCG TABLET PO SCH (10:02)
[2021-01-30] MEDS: MAGNESIUM OXIDE 400MG TAB (MAG-OX) PO SCH ×2 (10:03→21:13)
[2021-01-30] MEDS: PREGABALIN 100 MG CAP (LYRICA) PO SCH ×2 (10:03→21:14)
[2021-01-30] MEDS: DOCUSATE SODIUM 100MG CAPSULE PO SCH ×2 (10:03→21:12)
[2021-01-30] MEDS: NYSTATIN 100,000 UNITS/GM TOPICAL PWD 15 GM TOP SCH ×2 (10:04→21:15)
[2021-01-30] MEDS: D5W IV SCH ×2 (10:48→21:28)
[2021-01-30] MEDS: TOBRAMYCIN SULF IV SCH ×2 (10:48→21:28)
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
[2021-01-30] MEDS: METOCLOPRAMIDE 10 MG TAB PO PRN (12:15)
[2021-01-30 14:00] VITALS: BP 121/73
[2021-01-30] MEDS: SENNA 8.6 MG TAB (SENOKOT) PO SCH (21:12)
[2021-01-30] MEDS: ATORVASTATIN 20 MG TAB PO SCH (21:13)
[2021-01-30] MEDS: FERROUS GLUCONATE 324 MG TAB PO SCH (21:13)
[2021-01-30] MEDS: DULoxetine 30MG CAPSULE (CYMBALTA) PO SCH (21:14)
[2021-01-30 22:00] VITALS: BP 113/72
[2021-01-30] MEDS: SODIUM CHLORIDE 0.9% INJ 10 ML SYR IV PRN (22:23)
[2021-01-31 06:00] VITALS: BP 116/69
[2021-01-31] MEDS: LEVOTHYROXINE 50MCG TABLET (0.05MG) PO SCH (06:13)
[2021-01-31] MEDS: SODIUM CHLORIDE 0.9% INJ 10 ML SYR IV SCH ×2 (06:14→17:25)
[2021-01-31 06:48] LABS: BASO # 0.1 10^3/uL (0.0-0.2); EOS # 1.1 10^3/uL (0.0-0.5); EOS % 9.7 % (0.0-3.0); HEMATOCRIT 27.5 % (36.0-47.0); HEMOGLOBIN 8.5 g/dl (12.0-15.5); LYMPH # 1.9 10^3/uL (1.5-5.0); LYMPH % 16.7 % (24.0-44.0); MEAN CORPUSCULAR HEMOGLOBIN 25.4 pg (27.0-33.0); MEAN CORPUSCULAR HGB CONC 30.9 g/dl (32.0-36.5); MEAN CORPUSCULAR VOLUME 82.1 fl (80.0-96.0); MONO # 1.4 10^3/uL (0.0-0.8); MONO % 12.2 % (2.0-8.0); NEUTROPHILS # 6.8 10^3/uL (1.5-8.5); NEUTROPHILS % 59.3 % (36.0-66.0); PLATELET COUNT, AUTOMATED 526 10^3/uL (150-450); RED BLOOD COUNT 3.35 10^6/uL (4.00-5.40); WHITE BLOOD COUNT 11.4 10^3/uL (4.0-10.0)
[2021-01-31 07:16] LABS: BLOOD UREA NITROGEN 8 MG/DL (7-18); C REACTIVE PROTEIN QUANTITATIV 5.28 MG/DL (0.00-0.30); CALCIUM LEVEL 7.6 MG/DL (8.8-10.2); CARBON DIOXIDE LEVEL 33 MEQ/L (21-32); CHLORIDE LEVEL 99 MEQ/L (98-107); CREATININE FOR GFR 0.26 MG/DL (0.55-1.30); GLOMERULAR FILTRATION RATE > 60.0 (>45); GLUCOSE, FASTING 90 MG/DL (70-100); POTASSIUM SERUM 4.8 MEQ/L (3.5-5.1); SODIUM LEVEL 135 MEQ/L (136-145)
[2021-01-31] MEDS: HumaLOG INSULIN (NovoLOG) PER UNIT SC SCH ×4 (07:30→20:03)
[2021-01-31] MEDS: SUCRALFATE SUSP 1GM/10ML UD PO SCH ×4 (08:01→20:24)
[2021-01-31] MEDS: ONDANSETRON 4MG/2ML VIAL IV PRN (08:02)
[2021-01-31 08:13] LABS: ERYTHROCYTE SEDIMENTATION RATE 69 mm/hr (0-30)
[2021-01-31] MEDS: PANTOPRAZOLE 40MG TAB (PROTONIX) PO SCH (08:58)
[2021-01-31] MEDS: BUPRENORPHINE/NALOXONE 2-0.5MG SUBLINGUAL TABLET(SUBOXONE) SL SCH ×2 (08:58→20:27)
[2021-01-31] MEDS: DOCUSATE SODIUM 100MG CAPSULE PO SCH ×2 (08:58→20:26)
[2021-01-31] MEDS: BACLOFEN 10 MG TAB PO SCH ×3 (08:58→20:42)
[2021-01-31] MEDS: PREGABALIN 100 MG CAP (LYRICA) PO SCH ×2 (08:58→20:27)
[2021-01-31] MEDS: ENOXAPARIN 40MG/0.4ML SYRINGE (J1650 PER 10MG) SC SCH (08:58)
[2021-01-31] MEDS: LACTULOSE 20 GM/30 ML SYRUP UD PO SCH (08:58)
[2021-01-31] MEDS: MAGNESIUM OXIDE 400MG TAB (MAG-OX) PO SCH ×2 (08:59→20:26)
[2021-01-31] MEDS: NYSTATIN 100,000 UNITS/GM TOPICAL PWD 15 GM TOP SCH ×2 (08:59→22:04)
[2021-01-31] MEDS: FOLIC ACID 1 MG TAB PO SCH (08:59)
[2021-01-31] MEDS: CYANOCOBALAMIN 250 MCG TABLET PO SCH (08:59)
[2021-01-31] MEDS: ASPIRIN 81MG ENTERIC TABLET PO SCH (08:59)
[2021-01-31] MEDS: SOLIFENACIN 5 MG TAB PO SCH (08:59)
[2021-01-31] MEDS: D5W IV SCH ×2 (10:03→22:54)
[2021-01-31] MEDS: TOBRAMYCIN SULF IV SCH ×2 (10:03→22:54)
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
--- NOTE | 2021-01-31 10:52 | IPN ---
PROGRESS NOTE DATE: 01/29/2021 SUBJECTIVE: Nadege continues complaining of lower abdominal pain mostly in the suprapubic area. She had her Wood catheter changed on 01/25/2021. She has minimal leakage around the Wood; she has an18 Prydeinig with a 30 cc balloon. She has had no fever or chills, no nausea, vomiting or diarrhea. She has a minimal cough. No shortness of breath. PHYSICAL EXAMINATION: She is in no acute distress. She was being examined when her dressing was being changed and her decubitus ulcers were being cleaned. HEART: Normal S1, S2, no murmurs appreciated. LUNGS: Clear. No wheezes, rales or rhonchi. Trach sounds. ABDOMEN: Soft, nontender, obese. Left lower quadrant with large amount of stool in the colostomy bag. Soft urine. : Wood catheter in place with clear urine. There is a large decubitus ulcer in the sacrum, which is mostly clean with granulation tissue, but measures over 20 cm x 10 cm with a depth of 4 cm. There is no exposed bone. There is no purulence. Right ischial ulcer superficial with granulation tissue clean. Left ischium with a very deep wound with some bone exposed, but much better compared to previous hospitalization. The head of humerus no longer exposed. There is no purulence and no evidence of infection. LABORATORY DATA: White count on 01/29 14._, hemoglobin 9.3, hematocrit 30.5, platelets 604,000, 62% neutrophils, 12% lymphocytes, 10% monocytes. Sodium 135, potassium 4.8, chloride 100, bicarb 28, BUN 8, creatinine 0.31, glucose 87, calcium 7.9. IMPRESSION: 1. Catheter associated UTI with a urine culture positive for Acinetobacter baumannii with multidrug resistant pathogen intermediate to meropenem, Zosyn, sensitive to Tigecycline and Tobramycin. Patient was switched from Cefepime to Tobramycin at 130 mg I.V. every 12 hours. If there is no improvement in her white count or abdominal pain, may consider adding Meropenem for synergy. 2. Quadriplegia with sacral decubitus and bilateral ischial decubs; do not look infected. PLAN: Discontinue I.V. Cefepime and Linezolid, switch to Tobramycin to be renally dosed by pharmacy. Will also look into other possible treatment options such as new cephalosporin. I have discussed the case with the pharmacy, who are looking into obtaining possibly a drug by the name of Cefiderocol, which works for resistant Acinetobacter. Repeat CBC, CRP, ESR tomorrow. Monitor Tobramycin peak and trough. Case has been discussed with Kori Dove regarding antibiotic management and Carroll Sommer resident on the case.
[2021-01-31] MEDS ORDERED: FLUCONAZOLE 100 MG TAB PO ONE (18:30)
[2021-01-31] MEDS: MEROPENEM INJ 1 GM in IV 1 EA IV SCH (20:24)
[2021-01-31] MEDS: FERROUS GLUCONATE 324 MG TAB PO SCH (20:26)
[2021-01-31] MEDS: SENNA 8.6 MG TAB (SENOKOT) PO SCH (20:26)
[2021-01-31] MEDS: DULoxetine 30MG CAPSULE (CYMBALTA) PO SCH (20:26)
[2021-01-31] MEDS: ATORVASTATIN 20 MG TAB PO SCH (20:28)
[2021-01-31] MEDS ORDERED: PILL CUTTER 1 EACH XX PRN (20:35)
[2021-01-31] MEDS: NYSTATIN OINTMENT 15 GM TOP SCH (21:00)
--- NOTE | 2021-01-31 21:48 | IPN ---
INFECTIOUS DISEASE PROGRESS NOTE DATE: 01/29/2021 SUBJECTIVE: Nadege still complains of lower abdominal pain without any improvement. Otherwise she remains afebrile, no nausea, vomiting or diarrhea. Her appetite is fair. She drinks a lot of Sprite. She continues having a slightly elevated white count although improving. White count was 11.4, hemoglobin 8.5, hematocrit 27.5, platelet count 526, 59% neutrophils, 16% lymphocytes, 12% monocytes, ESR 69. Sodium 135, potassium 4.8, chloride 99, bicarbonate 33, BUN 8, creatinine 0.26, glucose 90, calcium 7.6, CRP 528, down from 12.5. Blood cultures 2 sets are negative from 01/26 and urine culture grew Acinetobacter baumannii. OBJECTIVE: PHYSICAL EXAMINATION: VITAL SIGNS: Temperature is 97.2, pulse 101, respirations 19, blood pressure 116/69. O2 sat 99% with a trach collar of 28%. EXTREMITIES: Large sacral decubiti and bilateral ischial decubitus ulcers with granulation tissue, very minimal purulence on the left ischium. There is diffuse erythema around the wound, extending probably 20 cm on the back and through the mid thigh areas bilaterally with dryness and cephalizations. There is skin breakdown and dryness. This is suggestive of mucocutaneous candidiasis. We will leave the catheter in place with some leakage around the catheter. IMPRESSION AND PLAN: 1. Acinetobacter baumanii catheter associated urinary tract infection on IV Tobramycin. Due to persistence of abdominal pain, multi-drug resistant pathogen and persistent leukocytosis, I will add Meropenem one gram IV every 8 hours. Ideally, this needs to be infused over a 3-hour period prolonged infusion to improve antibiotic bio-availability over the PARISA. Continue to use Tobramycin with Meropenem for synergy. 2. Mucocutaneous candidiasis the patient will be treated with some Nystatin Ointment around the wounds. She will also be given one dose of Fluconazole. 3. Paraplegia with trach - oxygen is stable. CAT scan with consolidations that are unchanged from previous, most likely related to atelectasis. PLAN: 1. Start IV Meropenem one gram every 8 hours if possible, use extended infusion over 3 hours. 2. Continue with IV Tobramycin 130 mg q. 12 hours. 3. Nystatin Ointment and Diflucan will be added. MTDD
[2021-01-31] MEDS: SODIUM CHLORIDE 0.9% INJ 10 ML SYR IV PRN (23:54)
[2021-02-01] MEDS: MEROPENEM INJ 1 GM in IV 1 EA IV SCH ×3 (04:03→19:54)
[2021-02-01] MEDS: LEVOTHYROXINE 50MCG TABLET (0.05MG) PO SCH (05:29)
[2021-02-01] MEDS: SODIUM CHLORIDE 0.9% INJ 10 ML SYR IV SCH ×2 (05:32→17:22)
[2021-02-01] MEDS: HumaLOG INSULIN (NovoLOG) PER UNIT SC SCH ×4 (07:30→21:00)
[2021-02-01] MEDS: SUCRALFATE SUSP 1GM/10ML UD PO SCH ×4 (07:30→21:26)
[2021-02-01] MEDS: LACTULOSE 20 GM/30 ML SYRUP UD PO SCH (10:04)
[2021-02-01] MEDS: PREGABALIN 100 MG CAP (LYRICA) PO SCH ×2 (10:04→21:27)
[2021-02-01] MEDS: BUPRENORPHINE/NALOXONE 2-0.5MG SUBLINGUAL TABLET(SUBOXONE) SL SCH ×2 (10:04→21:29)
[2021-02-01] MEDS: FOLIC ACID 1 MG TAB PO SCH (10:05)
[2021-02-01] MEDS: PANTOPRAZOLE 40MG TAB (PROTONIX) PO SCH (10:05)
[2021-02-01] MEDS: DOCUSATE SODIUM 100MG CAPSULE PO SCH ×2 (10:05→21:27)
[2021-02-01] MEDS: ASPIRIN 81MG ENTERIC TABLET PO SCH (10:05)
[2021-02-01] MEDS: BACLOFEN 10 MG TAB PO SCH ×3 (10:05→21:29)
[2021-02-01] MEDS: SOLIFENACIN 5 MG TAB PO SCH (10:05)
[2021-02-01] MEDS: CYANOCOBALAMIN 250 MCG TABLET PO SCH (10:06)
[2021-02-01] MEDS: NYSTATIN 100,000 UNITS/GM TOPICAL PWD 15 GM TOP SCH ×2 (10:06→21:30)
[2021-02-01] MEDS: ENOXAPARIN 40MG/0.4ML SYRINGE (J1650 PER 10MG) SC SCH (10:06)
[2021-02-01] MEDS: NYSTATIN OINTMENT 15 GM TOP SCH ×2 (10:07→21:30)
[2021-02-01] MEDS: D5W IV SCH ×2 (10:07→21:35)
[2021-02-01] MEDS: TOBRAMYCIN SULF IV SCH ×2 (10:07→21:35)
[2021-02-01] MEDS: MAGNESIUM OXIDE 400MG TAB (MAG-OX) PO SCH ×2 (10:11→21:29)
[2021-02-01] MEDS: METOCLOPRAMIDE 10 MG TAB PO PRN (17:26)
[2021-02-01] MEDS: SODIUM CHLORIDE 0.9% INJ 10 ML SYR IV PRN ×2 (21:26→22:36)
[2021-02-01] MEDS: FERROUS GLUCONATE 324 MG TAB PO SCH (21:27)
[2021-02-01] MEDS: ATORVASTATIN 20 MG TAB PO SCH (21:27)
[2021-02-01] MEDS: DULoxetine 30MG CAPSULE (CYMBALTA) PO SCH (21:28)
[2021-02-01] MEDS: SENNA 8.6 MG TAB (SENOKOT) PO SCH (21:28)
[2021-02-02] MEDS: MEROPENEM INJ 1 GM in IV 1 EA IV SCH ×3 (04:03→20:29)
[2021-02-02 06:00] VITALS: BP 116/62
[2021-02-02] MEDS: SODIUM CHLORIDE 0.9% INJ 10 ML SYR IV SCH ×2 (06:15→17:00)
[2021-02-02] MEDS: LEVOTHYROXINE 50MCG TABLET (0.05MG) PO SCH (06:15)
[2021-02-02] MEDS: SUCRALFATE SUSP 1GM/10ML UD PO SCH ×4 (07:30→22:11)
[2021-02-02] MEDS: HumaLOG INSULIN (NovoLOG) PER UNIT SC SCH ×4 (10:07→21:00)
[2021-02-02] MEDS: LACTULOSE 20 GM/30 ML SYRUP UD PO SCH (10:42)
[2021-02-02] MEDS: DOCUSATE SODIUM 100MG CAPSULE PO SCH ×2 (10:42→22:12)
[2021-02-02] MEDS: PANTOPRAZOLE 40MG TAB (PROTONIX) PO SCH (10:43)
[2021-02-02] MEDS: SOLIFENACIN 5 MG TAB PO SCH (10:43)
[2021-02-02] MEDS: ASPIRIN 81MG ENTERIC TABLET PO SCH (10:43)
[2021-02-02] MEDS: MAGNESIUM OXIDE 400MG TAB (MAG-OX) PO SCH ×2 (10:43→22:11)
[2021-02-02] MEDS: FOLIC ACID 1 MG TAB PO SCH (10:43)
[2021-02-02] MEDS: BACLOFEN 10 MG TAB PO SCH ×3 (10:44→22:11)
[2021-02-02] MEDS: PREGABALIN 100 MG CAP (LYRICA) PO SCH ×2 (10:44→22:11)
[2021-02-02] MEDS: CYANOCOBALAMIN 250 MCG TABLET PO SCH (10:45)
[2021-02-02] MEDS: BUPRENORPHINE/NALOXONE 2-0.5MG SUBLINGUAL TABLET(SUBOXONE) SL SCH ×2 (10:45→22:11)
[2021-02-02] MEDS: ENOXAPARIN 40MG/0.4ML SYRINGE (J1650 PER 10MG) SC SCH (10:45)
[2021-02-02] MEDS: NYSTATIN 100,000 UNITS/GM TOPICAL PWD 15 GM TOP SCH ×2 (10:46→22:12)
[2021-02-02] MEDS: NYSTATIN OINTMENT 15 GM TOP SCH ×2 (10:46→22:12)
[2021-02-02] MEDS: TOBRAMYCIN SULF IV SCH ×2 (10:47→22:10)
[2021-02-02] MEDS: D5W IV SCH ×2 (10:47→22:10)
[2021-02-02] MEDS: diazePAM 2 MG TAB PO PRN (12:14)
[2021-02-02] MEDS: METOCLOPRAMIDE 10 MG TAB PO PRN (18:11)
[2021-02-02] MEDS: DULoxetine 30MG CAPSULE (CYMBALTA) PO SCH (22:11)
[2021-02-02] MEDS: ATORVASTATIN 20 MG TAB PO SCH (22:11)
[2021-02-02] MEDS: SENNA 8.6 MG TAB (SENOKOT) PO SCH (22:12)
[2021-02-02] MEDS: FERROUS GLUCONATE 324 MG TAB PO SCH (22:12)
[2021-02-02] MEDS: SODIUM CHLORIDE 0.9% INJ 10 ML SYR IV PRN (23:15)
[2021-02-03] MEDS: MEROPENEM INJ 1 GM in IV 1 EA IV SCH ×3 (03:13→20:21)
[2021-02-03] MEDS: SODIUM CHLORIDE 0.9% INJ 10 ML SYR IV PRN ×3 (04:07→23:14)
[2021-02-03] MEDS: LEVOTHYROXINE 50MCG TABLET (0.05MG) PO SCH (05:36)
[2021-02-03] MEDS: SODIUM CHLORIDE 0.9% INJ 10 ML SYR IV SCH ×2 (05:37→18:28)
[2021-02-03 06:00] VITALS: BP 115/57
[2021-02-03] MEDS: SUCRALFATE SUSP 1GM/10ML UD PO SCH ×4 (09:39→21:43)
[2021-02-03] MEDS: ASPIRIN 81MG ENTERIC TABLET PO SCH (09:39)
[2021-02-03] MEDS: DOCUSATE SODIUM 100MG CAPSULE PO SCH ×2 (09:39→21:44)
[2021-02-03] MEDS: LACTULOSE 20 GM/30 ML SYRUP UD PO SCH (09:39)
[2021-02-03] MEDS: HumaLOG INSULIN (NovoLOG) PER UNIT SC SCH ×4 (09:39→21:00)
[2021-02-03] MEDS: MAGNESIUM OXIDE 400MG TAB (MAG-OX) PO SCH ×2 (09:40→21:47)
[2021-02-03] MEDS: SOLIFENACIN 5 MG TAB PO SCH (09:40)
[2021-02-03] MEDS: PANTOPRAZOLE 40MG TAB (PROTONIX) PO SCH (09:40)
[2021-02-03] MEDS: FOLIC ACID 1 MG TAB PO SCH (09:41)
[2021-02-03] MEDS: CYANOCOBALAMIN 250 MCG TABLET PO SCH (09:41)
[2021-02-03] MEDS: ENOXAPARIN 40MG/0.4ML SYRINGE (J1650 PER 10MG) SC SCH (09:41)
[2021-02-03] MEDS: PREGABALIN 100 MG CAP (LYRICA) PO SCH ×2 (09:41→21:46)
[2021-02-03] MEDS: BUPRENORPHINE/NALOXONE 2-0.5MG SUBLINGUAL TABLET(SUBOXONE) SL SCH ×2 (09:42→21:46)
[2021-02-03] MEDS: NYSTATIN OINTMENT 15 GM TOP SCH ×2 (09:42→21:44)
[2021-02-03] MEDS: BACLOFEN 10 MG TAB PO SCH ×3 (09:42→21:47)
[2021-02-03] MEDS: NYSTATIN 100,000 UNITS/GM TOPICAL PWD 15 GM TOP SCH ×2 (09:43→21:44)
[2021-02-03] MEDS: METOCLOPRAMIDE 10 MG TAB PO PRN (10:11)
[2021-02-03] MEDS: diazePAM 2 MG TAB PO PRN (10:11)
[2021-02-03] MEDS: D5W IV SCH ×2 (11:47→21:44)
[2021-02-03] MEDS: TOBRAMYCIN SULF IV SCH ×2 (11:47→21:44)
[2021-02-03] MEDS: ATORVASTATIN 20 MG TAB PO SCH (21:45)
[2021-02-03] MEDS: DULoxetine 30MG CAPSULE (CYMBALTA) PO SCH (21:45)
[2021-02-03] MEDS: SENNA 8.6 MG TAB (SENOKOT) PO SCH (21:46)
[2021-02-03] MEDS: FERROUS GLUCONATE 324 MG TAB PO SCH (21:47)
[2021-02-04] MEDS: MEROPENEM INJ 1 GM in IV 1 EA IV SCH ×3 (03:18→21:44)
[2021-02-04] MEDS: SODIUM CHLORIDE 0.9% INJ 10 ML SYR IV SCH ×2 (05:38→17:07)
[2021-02-04] MEDS: LEVOTHYROXINE 50MCG TABLET (0.05MG) PO SCH (05:38)
[2021-02-04 06:00] VITALS: BP 117/64
[2021-02-04] MEDS: LACTULOSE 20 GM/30 ML SYRUP UD PO SCH (08:04)
[2021-02-04] MEDS: ASPIRIN 81MG ENTERIC TABLET PO SCH (08:05)
[2021-02-04] MEDS: FOLIC ACID 1 MG TAB PO SCH (08:05)
[2021-02-04] MEDS: SOLIFENACIN 5 MG TAB PO SCH (08:05)
[2021-02-04] MEDS: PANTOPRAZOLE 40MG TAB (PROTONIX) PO SCH (08:06)
[2021-02-04] MEDS: DOCUSATE SODIUM 100MG CAPSULE PO SCH ×2 (08:06→21:45)
[2021-02-04] MEDS: CYANOCOBALAMIN 250 MCG TABLET PO SCH (08:06)
[2021-02-04] MEDS: PREGABALIN 100 MG CAP (LYRICA) PO SCH ×2 (08:06→21:45)
[2021-02-04] MEDS: BUPRENORPHINE/NALOXONE 2-0.5MG SUBLINGUAL TABLET(SUBOXONE) SL SCH ×2 (08:06→21:46)
[2021-02-04] MEDS: BACLOFEN 10 MG TAB PO SCH ×3 (08:06→21:45)
[2021-02-04] MEDS: MAGNESIUM OXIDE 400MG TAB (MAG-OX) PO SCH ×2 (08:06→21:45)
[2021-02-04] MEDS: ENOXAPARIN 40MG/0.4ML SYRINGE (J1650 PER 10MG) SC SCH (08:07)
[2021-02-04] MEDS: NYSTATIN 100,000 UNITS/GM TOPICAL PWD 15 GM TOP SCH ×2 (08:07→21:00)
[2021-02-04] MEDS: NYSTATIN OINTMENT 15 GM TOP SCH ×2 (08:07→21:00)
[2021-02-04] MEDS: HumaLOG INSULIN (NovoLOG) PER UNIT SC SCH ×4 (08:08→21:00)
[2021-02-04] MEDS: SUCRALFATE SUSP 1GM/10ML UD PO SCH ×4 (09:04→21:45)
[2021-02-04] MEDS: TOBRAMYCIN SULF IV SCH ×2 (10:23→23:31)
[2021-02-04] MEDS: D5W IV SCH ×2 (10:23→23:31)
[2021-02-04] MEDS: diazePAM 2 MG TAB PO PRN (12:30)
[2021-02-04] MEDS: SODIUM CHLORIDE 0.9% INJ 10 ML SYR IV PRN ×2 (21:44→23:32)
[2021-02-04] MEDS: DULoxetine 30MG CAPSULE (CYMBALTA) PO SCH (21:45)
[2021-02-04] MEDS: FERROUS GLUCONATE 324 MG TAB PO SCH (21:45)
[2021-02-04] MEDS: ATORVASTATIN 20 MG TAB PO SCH (21:45)
[2021-02-04] MEDS: SENNA 8.6 MG TAB (SENOKOT) PO SCH (21:46)
[2021-02-04] MEDS: METOCLOPRAMIDE 10 MG TAB PO PRN (21:46)
[2021-02-05] MEDS: SODIUM CHLORIDE 0.9% INJ 10 ML SYR IV PRN ×4 (00:35→21:35)
[2021-02-05] MEDS: MEROPENEM INJ 1 GM in IV 1 EA IV SCH ×3 (03:16→21:34)
[2021-02-05] MEDS: LEVOTHYROXINE 50MCG TABLET (0.05MG) PO SCH (05:22)
[2021-02-05] MEDS: SODIUM CHLORIDE 0.9% INJ 10 ML SYR IV SCH ×2 (05:22→17:20)
[2021-02-05 06:08] LABS: BASO # 0.1 10^3/uL (0.0-0.2); BASO % 0.4 % (0.0-1.0); EOS # 1.2 10^3/uL (0.0-0.5); EOS % 9.8 % (0.0-3.0); HEMATOCRIT 24.9 % (36.0-47.0); HEMOGLOBIN 7.6 g/dl (12.0-15.5); LYMPH # 1.8 10^3/uL (1.5-5.0); LYMPH % 14.6 % (24.0-44.0); MEAN CORPUSCULAR HEMOGLOBIN 25.2 pg (27.0-33.0); MEAN CORPUSCULAR HGB CONC 30.5 g/dl (32.0-36.5); MEAN CORPUSCULAR VOLUME 82.5 fl (80.0-96.0); MONO # 1.5 10^3/uL (0.0-0.8); MONO % 12.2 % (2.0-8.0); NEUTROPHILS # 7.4 10^3/uL (1.5-8.5); NEUTROPHILS % 61.3 % (36.0-66.0); PLATELET COUNT, AUTOMATED 350 10^3/uL (150-450); RED BLOOD COUNT 3.02 10^6/uL (4.00-5.40); WHITE BLOOD COUNT 12.1 10^3/uL (4.0-10.0)
[2021-02-05 06:25] LABS: ALBUMIN 1.1 GM/DL (3.2-5.2); ALT/SGPT 20 U/L (12-78); BILIRUBIN,TOTAL 0.1 MG/DL (0.2-1.0); BLOOD UREA NITROGEN 9 MG/DL (7-18); CALCIUM LEVEL 7.5 MG/DL (8.8-10.2); CARBON DIOXIDE LEVEL 33 MEQ/L (21-32); CHLORIDE LEVEL 100 MEQ/L (98-107); CREATININE FOR GFR 0.24 MG/DL (0.55-1.30); GLOMERULAR FILTRATION RATE > 60.0 (>45); GLUCOSE, FASTING 89 MG/DL (70-100); POTASSIUM SERUM 4.6 MEQ/L (3.5-5.1); SODIUM LEVEL 136 MEQ/L (136-145); TOTAL PROTEIN 5.2 GM/DL (6.4-8.2)
[2021-02-05] MEDS: HumaLOG INSULIN (NovoLOG) PER UNIT SC SCH ×4 (07:30→21:00)
[2021-02-05 09:00] VITALS: BP 108/60
[2021-02-05] MEDS: SUCRALFATE SUSP 1GM/10ML UD PO SCH ×4 (09:16→21:34)
[2021-02-05] MEDS: LACTULOSE 20 GM/30 ML SYRUP UD PO SCH (09:16)
[2021-02-05] MEDS: BACLOFEN 10 MG TAB PO SCH ×3 (09:17→21:34)
[2021-02-05] MEDS: BUPRENORPHINE/NALOXONE 2-0.5MG SUBLINGUAL TABLET(SUBOXONE) SL SCH ×2 (09:17→21:35)
[2021-02-05] MEDS: CYANOCOBALAMIN 250 MCG TABLET PO SCH (09:17)
[2021-02-05] MEDS: PANTOPRAZOLE 40MG TAB (PROTONIX) PO SCH (09:17)
[2021-02-05] MEDS: SOLIFENACIN 5 MG TAB PO SCH (09:17)
[2021-02-05] MEDS: ASPIRIN 81MG ENTERIC TABLET PO SCH (09:17)
[2021-02-05] MEDS: DOCUSATE SODIUM 100MG CAPSULE PO SCH ×2 (09:17→21:34)
[2021-02-05] MEDS: ENOXAPARIN 40MG/0.4ML SYRINGE (J1650 PER 10MG) SC SCH (09:18)
[2021-02-05] MEDS: FOLIC ACID 1 MG TAB PO SCH (09:18)
[2021-02-05] MEDS: MAGNESIUM OXIDE 400MG TAB (MAG-OX) PO SCH ×2 (09:18→21:35)
[2021-02-05] MEDS: PREGABALIN 100 MG CAP (LYRICA) PO SCH ×2 (09:18→21:34)
[2021-02-05] MEDS: NYSTATIN 100,000 UNITS/GM TOPICAL PWD 15 GM TOP SCH ×2 (09:19→21:00)
[2021-02-05] MEDS: NYSTATIN OINTMENT 15 GM TOP SCH ×2 (09:19→21:00)
[2021-02-05] MEDS: TOBRAMYCIN SULF IV SCH (16:05)
[2021-02-05] MEDS: D5W IV SCH (16:05)
[2021-02-05] MEDS: ATORVASTATIN 20 MG TAB PO SCH (21:34)
[2021-02-05] MEDS: FERROUS GLUCONATE 324 MG TAB PO SCH (21:34)
[2021-02-05] MEDS: DULoxetine 30MG CAPSULE (CYMBALTA) PO SCH (21:34)
[2021-02-05] MEDS: SENNA 8.6 MG TAB (SENOKOT) PO SCH (21:35)
[2021-02-05] MEDS: METOCLOPRAMIDE 10 MG TAB PO PRN (21:35)
[2021-02-06] MEDS: SODIUM CHLORIDE 0.9% INJ 10 ML SYR IV PRN ×4 (01:24→06:37)
[2021-02-06] MEDS: TOBRAMYCIN SULF IV SCH ×2 (02:24→15:57)
[2021-02-06] MEDS: D5W IV SCH ×2 (02:24→15:57)
[2021-02-06] MEDS: MEROPENEM INJ 1 GM in IV 1 EA IV SCH ×3 (03:28→23:19)
[2021-02-06 06:00] VITALS: BP 110/65
[2021-02-06] MEDS: LEVOTHYROXINE 50MCG TABLET (0.05MG) PO SCH (06:36)
[2021-02-06] MEDS: SODIUM CHLORIDE 0.9% INJ 10 ML SYR IV SCH ×2 (06:36→18:40)
[2021-02-06] MEDS: HumaLOG INSULIN (NovoLOG) PER UNIT SC SCH ×4 (07:30→23:21)
[2021-02-06] MEDS: SUCRALFATE SUSP 1GM/10ML UD PO SCH ×4 (07:30→23:19)
[2021-02-06] MEDS: LACTULOSE 20 GM/30 ML SYRUP UD PO SCH (10:18)
[2021-02-06] MEDS: CYANOCOBALAMIN 250 MCG TABLET PO SCH (10:19)
[2021-02-06] MEDS: ENOXAPARIN 40MG/0.4ML SYRINGE (J1650 PER 10MG) SC SCH (10:19)
[2021-02-06] MEDS: PREGABALIN 100 MG CAP (LYRICA) PO SCH ×2 (10:20→23:20)
[2021-02-06] MEDS: NYSTATIN 100,000 UNITS/GM TOPICAL PWD 15 GM TOP SCH ×2 (10:20→23:21)
[2021-02-06] MEDS: SOLIFENACIN 5 MG TAB PO SCH (10:20)
[2021-02-06] MEDS: ASPIRIN 81MG ENTERIC TABLET PO SCH (10:20)
[2021-02-06] MEDS: DOCUSATE SODIUM 100MG CAPSULE PO SCH ×2 (10:21→23:19)
[2021-02-06] MEDS: BUPRENORPHINE/NALOXONE 2-0.5MG SUBLINGUAL TABLET(SUBOXONE) SL SCH ×2 (10:21→23:21)
[2021-02-06] MEDS: MAGNESIUM OXIDE 400MG TAB (MAG-OX) PO SCH ×2 (10:21→23:20)
[2021-02-06] MEDS: PANTOPRAZOLE 40MG TAB (PROTONIX) PO SCH (10:21)
[2021-02-06] MEDS: FOLIC ACID 1 MG TAB PO SCH (10:21)
[2021-02-06] MEDS: BACLOFEN 10 MG TAB PO SCH ×3 (10:21→23:20)
[2021-02-06] MEDS: NYSTATIN OINTMENT 15 GM TOP SCH ×2 (10:22→23:21)
[2021-02-06] MEDS: METOCLOPRAMIDE 10 MG TAB PO PRN ×2 (11:38→23:21)
[2021-02-06] MEDS: DULoxetine 30MG CAPSULE (CYMBALTA) PO SCH (23:20)
[2021-02-06] MEDS: FERROUS GLUCONATE 324 MG TAB PO SCH (23:20)
[2021-02-06] MEDS: SENNA 8.6 MG TAB (SENOKOT) PO SCH (23:20)
[2021-02-06] MEDS: ATORVASTATIN 20 MG TAB PO SCH (23:20)
[2021-02-07] MEDS: SODIUM CHLORIDE 0.9% INJ 10 ML SYR IV PRN ×3 (03:19→06:29)
[2021-02-07] MEDS: D5W IV SCH (03:20)
[2021-02-07] MEDS: TOBRAMYCIN SULF IV SCH (03:20)
[2021-02-07] MEDS: MEROPENEM INJ 1 GM in IV 1 EA IV SCH ×3 (04:16→21:00)
[2021-02-07 06:00] VITALS: BP 123/62
[2021-02-07] MEDS: SODIUM CHLORIDE 0.9% INJ 10 ML SYR IV SCH ×2 (06:28→17:23)
[2021-02-07] MEDS: LEVOTHYROXINE 50MCG TABLET (0.05MG) PO SCH (06:28)
[2021-02-07 06:49] LABS: BASO # 0.1 10^3/uL (0.0-0.2); BASO % 0.5 % (0.0-1.0); EOS # 1.3 10^3/uL (0.0-0.5); EOS % 9.8 % (0.0-3.0); HEMATOCRIT 24.4 % (36.0-47.0); HEMOGLOBIN 7.4 g/dl (12.0-15.5); LYMPH # 1.7 10^3/uL (1.5-5.0); LYMPH % 13.3 % (24.0-44.0); MEAN CORPUSCULAR HGB CONC 30.3 g/dl (32.0-36.5); MEAN CORPUSCULAR VOLUME 82.4 fl (80.0-96.0); MONO # 1.3 10^3/uL (0.0-0.8); MONO % 10.3 % (2.0-8.0); NEUTROPHILS # 8.3 10^3/uL (1.5-8.5); NEUTROPHILS % 64.7 % (36.0-66.0); PLATELET COUNT, AUTOMATED 399 10^3/uL (150-450); RED BLOOD COUNT 2.96 10^6/uL (4.00-5.40); WHITE BLOOD COUNT 12.9 10^3/uL (4.0-10.0)
[2021-02-07 07:19] LABS: ALT/SGPT 20 U/L (12-78); BILIRUBIN,TOTAL 0.2 MG/DL (0.2-1.0); BLOOD UREA NITROGEN 10 MG/DL (7-18); CALCIUM LEVEL 7.4 MG/DL (8.8-10.2); CARBON DIOXIDE LEVEL 33 MEQ/L (21-32); CHLORIDE LEVEL 99 MEQ/L (98-107); CREATININE FOR GFR 0.18 MG/DL (0.55-1.30); GLOMERULAR FILTRATION RATE > 60.0 (>45); GLUCOSE, FASTING 91 MG/DL (70-100); POTASSIUM SERUM 4.4 MEQ/L (3.5-5.1); SODIUM LEVEL 134 MEQ/L (136-145)
[2021-02-07] MEDS: SUCRALFATE SUSP 1GM/10ML UD PO SCH ×4 (08:00→21:00)
[2021-02-07] MEDS: HumaLOG INSULIN (NovoLOG) PER UNIT SC SCH ×4 (08:00→21:00)
[2021-02-07] MEDS: DOCUSATE SODIUM 100MG CAPSULE PO SCH ×2 (11:29→21:01)
[2021-02-07] MEDS: LACTULOSE 20 GM/30 ML SYRUP UD PO SCH (11:29)
[2021-02-07] MEDS: ENOXAPARIN 40MG/0.4ML SYRINGE (J1650 PER 10MG) SC SCH (11:30)
[2021-02-07] MEDS: ASPIRIN 81MG ENTERIC TABLET PO SCH (11:30)
[2021-02-07] MEDS: MAGNESIUM OXIDE 400MG TAB (MAG-OX) PO SCH ×2 (11:30→21:01)
[2021-02-07] MEDS: FOLIC ACID 1 MG TAB PO SCH (11:31)
[2021-02-07] MEDS: BACLOFEN 10 MG TAB PO SCH ×3 (11:31→21:01)
[2021-02-07] MEDS: PREGABALIN 100 MG CAP (LYRICA) PO SCH ×2 (11:32→21:00)
[2021-02-07] MEDS: CYANOCOBALAMIN 250 MCG TABLET PO SCH (11:33)
[2021-02-07] MEDS: SOLIFENACIN 5 MG TAB PO SCH (11:33)
[2021-02-07] MEDS: PANTOPRAZOLE 40MG TAB (PROTONIX) PO SCH (11:33)
[2021-02-07] MEDS: NYSTATIN 100,000 UNITS/GM TOPICAL PWD 15 GM TOP SCH ×2 (11:34→21:12)
[2021-02-07] MEDS: NYSTATIN OINTMENT 15 GM TOP SCH ×2 (11:34→21:11)
[2021-02-07] MEDS: BUPRENORPHINE/NALOXONE 2-0.5MG SUBLINGUAL TABLET(SUBOXONE) SL SCH ×2 (11:35→21:02)
[2021-02-07] MEDS: METOCLOPRAMIDE 10 MG TAB PO PRN (11:36)
[2021-02-07 16:11] LABS: C REACTIVE PROTEIN QUANTITATIV 6.03 MG/DL (0.00-0.30); TOBRAMYCIN LEVEL TROUGH 1.3 MCG/ML (0.0-2.0)
[2021-02-07] MEDS: FERROUS GLUCONATE 324 MG TAB PO SCH (21:00)
[2021-02-07] MEDS: SENNA 8.6 MG TAB (SENOKOT) PO SCH (21:01)
[2021-02-07] MEDS: DULoxetine 30MG CAPSULE (CYMBALTA) PO SCH (21:01)
[2021-02-07] MEDS: ATORVASTATIN 20 MG TAB PO SCH (21:01)
[2021-02-08] MEDS: MEROPENEM INJ 1 GM in IV 1 EA IV SCH ×3 (04:42→20:52)
[2021-02-08] MEDS: SODIUM CHLORIDE 0.9% INJ 10 ML SYR IV SCH ×2 (05:44→17:39)
[2021-02-08] MEDS: LEVOTHYROXINE 50MCG TABLET (0.05MG) PO SCH (05:44)
[2021-02-08 06:00] VITALS: BP 117/65
[2021-02-08] MEDS: HumaLOG INSULIN (NovoLOG) PER UNIT SC SCH ×4 (07:30→20:38)
[2021-02-08] MEDS: SUCRALFATE SUSP 1GM/10ML UD PO SCH ×4 (09:01→20:52)
[2021-02-08] MEDS: LACTULOSE 20 GM/30 ML SYRUP UD PO SCH (09:01)
[2021-02-08] MEDS: ENOXAPARIN 40MG/0.4ML SYRINGE (J1650 PER 10MG) SC SCH (09:02)
[2021-02-08] MEDS: TOBRAMYCIN SULF 160 MG in D5W 50 ML IV SCH (09:02)
[2021-02-08] MEDS: PREGABALIN 100 MG CAP (LYRICA) PO SCH ×2 (09:03→20:53)
[2021-02-08] MEDS: BUPRENORPHINE/NALOXONE 2-0.5MG SUBLINGUAL TABLET(SUBOXONE) SL SCH ×2 (09:03→20:53)
[2021-02-08] MEDS: FOLIC ACID 1 MG TAB PO SCH (09:03)
[2021-02-08] MEDS: PANTOPRAZOLE 40MG TAB (PROTONIX) PO SCH (09:03)
[2021-02-08] MEDS: DOCUSATE SODIUM 100MG CAPSULE PO SCH ×2 (09:03→20:52)
[2021-02-08] MEDS: SOLIFENACIN 5 MG TAB PO SCH (09:03)
[2021-02-08] MEDS: ASPIRIN 81MG ENTERIC TABLET PO SCH (09:03)
[2021-02-08] MEDS: MAGNESIUM OXIDE 400MG TAB (MAG-OX) PO SCH ×2 (09:03→20:53)
[2021-02-08] MEDS: BACLOFEN 10 MG TAB PO SCH ×3 (09:04→20:53)
[2021-02-08] MEDS: NYSTATIN 100,000 UNITS/GM TOPICAL PWD 15 GM TOP SCH ×2 (09:05→20:38)
[2021-02-08] MEDS: NYSTATIN OINTMENT 15 GM TOP SCH ×2 (09:05→20:38)
--- NOTE | 2021-02-08 10:38 | IPN ---
PROGRESS NOTE DATE: 02/07/2021 SUBJECTIVE: Nadege was complaining of some nausea today, but no vomiting or diarrhea. She had no other complaints today. She has had no fevers or chills. I did not examine her decubitus ulcers today. OBJECTIVE: Temperature is 98, pulse 98, respirations 18, blood pressure 128/62, O2 saturation 98% on FiO2 of 28% unchanged. She has remained afebrile this hospitalization. LABORATORY DATA: White 12.9, hemoglobin 7.4, hematocrit 25.4, platelets 399. 65% neutrophils, 13% lymphocytes, 10% monocytes. Sodium 134, potassium 4.4, chloride 99, bicarbonate 33. BUN 10, creatinine 0.18, glucose 91, calcium 7.4, bilirubin 0.2, AST 22, ALT 20, alkaline phosphatase 124, C-reactive protein 6.03. Albumin 1. Tobramycin trough was 1.3 and yesterday 1.4. She is currently on tobramycin 160 mg IV q 24 hours, IV meropenem 1 gm q 8 hours. PHYSICAL EXAMINATION: Heart: Normal S1, S2 normal, no murmurs appreciated. Lungs: Clear, but diminished at the bases. No wheezes, rales or rhonchi. Abdomen: Mildly obese, soft, nontender. Left lower quadrant colostomy with soft stool. No diarrhea. Extremities: With +2 pitting edema bilaterally. She has a small left Achilles tendon decubitus ulcer measuring about 2 x 1 cm with serosanguinous discharge. The sacral and ischial decubiti are not examined today. She has +2 pitting edema. IMPRESSION: 1. Acinetobacter baumannii multiple drug resistant urinary tract infection (UTI) with leukocytosis. The patient will be treated with IV meropenem and tobramycin for a total of 10 days with end of therapy anticipated to be on 02/10. 2. Mucocutaneous candidiasis on nystatin ointment. 3. Protein calorie malnutrition with hypoalbuminemia and lower extremity edema. The patient should be encouraged to have better intake of protein. PLAN: Discontinue tobramycin, meropenem on 02/10/2021 after a total of 10 days synergistic medications with meropenem and tobramycin. MTDD
[2021-02-08] MEDS: METOCLOPRAMIDE 10 MG TAB PO PRN ×2 (13:03→20:53)
[2021-02-08] MEDS: CYANOCOBALAMIN 250 MCG TABLET PO SCH (13:03)
[2021-02-08] MEDS: DULoxetine 30MG CAPSULE (CYMBALTA) PO SCH (20:52)
[2021-02-08] MEDS: FERROUS GLUCONATE 324 MG TAB PO SCH (20:52)
[2021-02-08] MEDS: SENNA 8.6 MG TAB (SENOKOT) PO SCH (20:53)
[2021-02-08] MEDS: ATORVASTATIN 20 MG TAB PO SCH (20:53)
[2021-02-08] MEDS: SODIUM CHLORIDE 0.9% INJ 10 ML SYR IV PRN (20:53)
[2021-02-09] VITALS (7 sets, daily range): BP systolic 91–120; BP diastolic 51–66
[2021-02-09] MEDS: SODIUM CHLORIDE 0.9% INJ 10 ML SYR IV PRN ×4 (00:08→23:17)
[2021-02-09] MEDS: MEROPENEM INJ 1 GM in IV 1 EA IV SCH ×3 (03:31→23:14)
[2021-02-09] MEDS: LEVOTHYROXINE 50MCG TABLET (0.05MG) PO SCH (05:33)
[2021-02-09] MEDS: SODIUM CHLORIDE 0.9% INJ 10 ML SYR IV SCH ×2 (06:53→17:14)
[2021-02-09] MEDS: HumaLOG INSULIN (NovoLOG) PER UNIT SC SCH ×4 (07:30→22:38)
[2021-02-09] MEDS: SUCRALFATE SUSP 1GM/10ML UD PO SCH ×4 (08:17→23:14)
[2021-02-09] MEDS: LACTULOSE 20 GM/30 ML SYRUP UD PO SCH (08:17)
[2021-02-09] MEDS: BACLOFEN 10 MG TAB PO SCH ×3 (08:18→23:14)
[2021-02-09] MEDS: DOCUSATE SODIUM 100MG CAPSULE PO SCH ×2 (08:18→23:14)
[2021-02-09] MEDS: BUPRENORPHINE/NALOXONE 2-0.5MG SUBLINGUAL TABLET(SUBOXONE) SL SCH ×2 (08:18→23:15)
[2021-02-09] MEDS: NYSTATIN 100,000 UNITS/GM TOPICAL PWD 15 GM TOP SCH ×2 (08:18→23:15)
[2021-02-09] MEDS: PREGABALIN 100 MG CAP (LYRICA) PO SCH ×2 (08:18→23:15)
[2021-02-09] MEDS: NYSTATIN OINTMENT 15 GM TOP SCH ×2 (08:18→23:15)
[2021-02-09] MEDS: ASPIRIN 81MG ENTERIC TABLET PO SCH (08:18)
[2021-02-09] MEDS: FOLIC ACID 1 MG TAB PO SCH (08:18)
[2021-02-09] MEDS: MAGNESIUM OXIDE 400MG TAB (MAG-OX) PO SCH ×2 (08:19→23:15)
[2021-02-09] MEDS: CYANOCOBALAMIN 250 MCG TABLET PO SCH (08:19)
[2021-02-09] MEDS: PANTOPRAZOLE 40MG TAB (PROTONIX) PO SCH (08:19)
[2021-02-09] MEDS: ENOXAPARIN 40MG/0.4ML SYRINGE (J1650 PER 10MG) SC SCH (08:19)
[2021-02-09] MEDS: SOLIFENACIN 5 MG TAB PO SCH (08:19)
[2021-02-09 08:22] LABS: BASO # 0.1 10^3/uL (0.0-0.2); BASO % 0.9 % (0.0-1.0); EOS # 1.5 10^3/uL (0.0-0.5); EOS % 14.7 % (0.0-3.0); HEMATOCRIT 24.3 % (36.0-47.0); HEMOGLOBIN 7.4 g/dl (12.0-15.5); LYMPH # 1.6 10^3/uL (1.5-5.0); LYMPH % 15.7 % (24.0-44.0); MEAN CORPUSCULAR HEMOGLOBIN 25.4 pg (27.0-33.0); MEAN CORPUSCULAR HGB CONC 30.5 g/dl (32.0-36.5); MEAN CORPUSCULAR VOLUME 83.5 fl (80.0-96.0); MONO # 1.1 10^3/uL (0.0-0.8); MONO % 11.3 % (2.0-8.0); NEUTROPHILS # 5.6 10^3/uL (1.5-8.5); PLATELET COUNT, AUTOMATED 426 10^3/uL (150-450); RED BLOOD COUNT 2.91 10^6/uL (4.00-5.40)
[2021-02-09 08:43] LABS: BLOOD UREA NITROGEN 11 MG/DL (7-18); CALCIUM LEVEL 7.7 MG/DL (8.8-10.2); CARBON DIOXIDE LEVEL 33 MEQ/L (21-32); CHLORIDE LEVEL 102 MEQ/L (98-107); CREATININE FOR GFR < 0.15 MG/DL (0.55-1.30); GLOMERULAR FILTRATION RATE > 60.0 (>45); GLUCOSE, FASTING 98 MG/DL (70-100); POTASSIUM SERUM 4.8 MEQ/L (3.5-5.1); SODIUM LEVEL 138 MEQ/L (136-145)
[2021-02-09] MEDS: TOBRAMYCIN SULF 160 MG in D5W 50 ML IV SCH (09:41)
[2021-02-09] MEDS ORDERED: FUROSEMIDE 40MG/4ML VIAL (J1940) IV ONE (10:45)
--- NOTE | 2021-02-09 12:05 | IPNPDOC ---
Subjective Date Seen The patient was seen on 02/09/21. Subjective Chief Complaint/HPI No acute events at this week. Nadege complains of pain and swelling of her left hand which is a chronic issue. 02/10 will be her last dose of antibiotics. Seen decubiti wounds today. No fever or chills. Her H&H is slowly trended down to 7.4. will transfuse 1 unit of PRBC today. Has severe hypoalbuminemia with anasarca. Objective Physical Examination General Exam: Positive: Alert, Cooperative, No Acute Distress Eye Exam: Positive: PERRLA, Conjunctiva & lids normal, EOMI; Negative: Sclera icteric ENT Exam: Positive: Atraumatic, Mucous membr. moist/pink, Pharynx Normal Neck Exam: Positive: Supple; Negative: JVD, thyromegaly Chest Exam: Positive: Normal air movement, Diminished (Diminished at the bases with crackles) Heart Exam: Positive: Rate Normal, Regular Rhythm, Normal S1, Normal S2; Negative: Murmurs, Rubs Telemetry: Positive: No significant arrhythmia Abdomen Exam: Positive: Normal bowel sounds, Soft, Other (Colostomy bag in place); Negative: Tenderness Extremity Exam: Positive: Edema, Swelling (Left upper extremity); Negative: Clubbing, Cyanosis Skin Exam: Positive: Breakdown (chronic decubitus ulcer), Other skin issue (Heel boots ); Negative: Lesion Neuro Exam: Positive: Normal Speech Psych Exam: Positive: Oriented x 3 Assessment /Plan Assessment Acinetobacter baumannii multiple drug resistant urinary tract infection related to chronic garcia Meropenem and tobramycin till 02/10/21 Acute on chronic anemia No bleeding, slow down trending likely due to chronic infections, phlebotomy will transfuse 1 unit today Protein calorie malnutrition Albumin of only 1.0 with anasarca. Mucocutaneous candidiasis. on nystatin powder. Paraplegia with chronic trach, stage IV sacral ulcer, neurogenic bladder with spasms, chronic garcia c/w Supportive care Chronic pain Patient follows with Dr. Kuldip Sidhu and received Suboxone prescription from him c/w Pain regimen based on outpatient regimen (Suboxone / Baclofen) Stage IV sacral decubital and bilateral ischial decubiti. No evidence of active infection Patient follows with wound care as an outpatient Bladder spasms c/w solifenacin Hypothyroidism c/w Levothyroxine IDDM2 with Neuropathy c/w ISS and Pregabalin DLP c/w atorvastatin Anxiety / depression / Hx of Panic attacks c/w diazepam and duloxetine Constipation / Nausea c/w Bowel regimen as ordered HFpEF Does not appear to have any decompensation at this time Will hold Torsemide (re: Recent lactic acidosis) Iron deficiency c/w Ferrous sulfate GERD c/w Protonix, Sucralfate Morbid obesity BMI of 42.2 Plan/VTE VTE Prophylaxis Ordered?: Yes VS, I&O, 24H, Fishbone Vital Signs/I&O Vital Signs Date Time Temp Pulse Resp B/P (MAP) Pulse Ox O2 Delivery O2 Flow Rate FiO2 02/08/21 08:47 5.0 28 02/08/21 06:00 98.5 95 18 117/65 (82) 96 Trach Collar I&O- Last 24 Hours up to 6 AM 02/08/21 06:00 Intake Total 1600 ml Output Total 2325 ml Balance -725 ml Laboratory Data 24H LABS Laboratory Tests 2 02/07/21 20:07: Bedside Glucose (Misc Panel) 127H 02/08/21 05:51: Random Tobramycin Level 0.4 02/08/21 06:34: Bedside Glucose (Misc Panel) 114 02/08/21 12:01: Bedside Glucose (Misc Panel) 147H 02/08/21 16:30: Bedside Glucose (Misc Panel) 140H Barbara Barrientos MD Feb 08, 2021 18:07
[2021-02-09] MEDS: DULoxetine 30MG CAPSULE (CYMBALTA) PO SCH (23:14)
[2021-02-09] MEDS: FERROUS GLUCONATE 324 MG TAB PO SCH (23:14)
[2021-02-09] MEDS: SENNA 8.6 MG TAB (SENOKOT) PO SCH (23:15)
[2021-02-09] MEDS: ATORVASTATIN 20 MG TAB PO SCH (23:15)
[2021-02-10] MEDS: MEROPENEM INJ 1 GM in IV 1 EA IV SCH ×2 (02:59→12:09)
[2021-02-10] MEDS: SODIUM CHLORIDE 0.9% INJ 10 ML SYR IV PRN ×2 (02:59→06:32)
[2021-02-10 06:00] VITALS: BP 118/63
[2021-02-10] MEDS: LEVOTHYROXINE 50MCG TABLET (0.05MG) PO SCH (06:31)
[2021-02-10] MEDS: SODIUM CHLORIDE 0.9% INJ 10 ML SYR IV SCH ×2 (06:31→16:59)
[2021-02-10] MEDS: HumaLOG INSULIN (NovoLOG) PER UNIT SC SCH ×4 (08:36→21:00)
[2021-02-10] MEDS: SOLIFENACIN 5 MG TAB PO SCH (10:04)
[2021-02-10] MEDS: ENOXAPARIN 40MG/0.4ML SYRINGE (J1650 PER 10MG) SC SCH (10:04)
[2021-02-10] MEDS: CYANOCOBALAMIN 250 MCG TABLET PO SCH (10:04)
[2021-02-10] MEDS: SUCRALFATE SUSP 1GM/10ML UD PO SCH ×4 (10:04→21:00)
[2021-02-10] MEDS: PREGABALIN 100 MG CAP (LYRICA) PO SCH ×2 (10:05→21:02)
[2021-02-10] MEDS: ASPIRIN 81MG ENTERIC TABLET PO SCH (10:05)
[2021-02-10] MEDS: FOLIC ACID 1 MG TAB PO SCH (10:05)
[2021-02-10] MEDS: TORSEMIDE 20 MG TAB PO SCH (10:05)
[2021-02-10] MEDS: DOCUSATE SODIUM 100MG CAPSULE PO SCH ×2 (10:05→21:02)
[2021-02-10] MEDS: BUPRENORPHINE/NALOXONE 2-0.5MG SUBLINGUAL TABLET(SUBOXONE) SL SCH ×2 (10:05→21:03)
[2021-02-10] MEDS: BACLOFEN 10 MG TAB PO SCH ×3 (10:06→21:02)
[2021-02-10] MEDS: MAGNESIUM OXIDE 400MG TAB (MAG-OX) PO SCH ×2 (10:06→21:02)
[2021-02-10] MEDS: NYSTATIN 100,000 UNITS/GM TOPICAL PWD 15 GM TOP SCH ×2 (10:06→21:04)
[2021-02-10] MEDS: NYSTATIN OINTMENT 15 GM TOP SCH ×2 (10:06→21:03)
[2021-02-10] MEDS: PANTOPRAZOLE 40MG TAB (PROTONIX) PO SCH (10:06)
[2021-02-10] MEDS: LACTULOSE 20 GM/30 ML SYRUP UD PO SCH (10:07)
[2021-02-10 10:56] LABS: BASO # 0.1 10^3/uL (0.0-0.2); BASO % 0.7 % (0.0-1.0); EOS # 1.7 10^3/uL (0.0-0.5); EOS % 14.6 % (0.0-3.0); HEMATOCRIT 26.2 % (36.0-47.0); HEMOGLOBIN 8.3 g/dl (12.0-15.5); LYMPH # 1.5 10^3/uL (1.5-5.0); LYMPH % 13.1 % (24.0-44.0); MEAN CORPUSCULAR HEMOGLOBIN 26.1 pg (27.0-33.0); MEAN CORPUSCULAR HGB CONC 31.7 g/dl (32.0-36.5); MEAN CORPUSCULAR VOLUME 82.4 fl (80.0-96.0); MONO # 1.3 10^3/uL (0.0-0.8); MONO % 11.1 % (2.0-8.0); NEUTROPHILS # 6.8 10^3/uL (1.5-8.5); NEUTROPHILS % 59.4 % (36.0-66.0); PLATELET COUNT, AUTOMATED 459 10^3/uL (150-450); RED BLOOD COUNT 3.18 10^6/uL (4.00-5.40); WHITE BLOOD COUNT 11.3 10^3/uL (4.0-10.0)
[2021-02-10 11:31] LABS: BLOOD UREA NITROGEN 12 MG/DL (7-18); CALCIUM LEVEL 7.6 MG/DL (8.8-10.2); CARBON DIOXIDE LEVEL 32 MEQ/L (21-32); CHLORIDE LEVEL 100 MEQ/L (98-107); CREATININE FOR GFR 0.22 MG/DL (0.55-1.30); GLOMERULAR FILTRATION RATE > 60.0 (>45); GLUCOSE, FASTING 150 MG/DL (70-100); POTASSIUM SERUM 4.5 MEQ/L (3.5-5.1); SODIUM LEVEL 137 MEQ/L (136-145)
[2021-02-10] MEDS: SENNA 8.6 MG TAB (SENOKOT) PO SCH (21:02)
[2021-02-10] MEDS: ATORVASTATIN 20 MG TAB PO SCH (21:02)
[2021-02-10] MEDS: DULoxetine 30MG CAPSULE (CYMBALTA) PO SCH (21:02)
[2021-02-10] MEDS: FERROUS GLUCONATE 324 MG TAB PO SCH (21:02)
[2021-02-11 06:00] VITALS: BP 116/63
[2021-02-11] MEDS: LEVOTHYROXINE 50MCG TABLET (0.05MG) PO SCH (06:09)
[2021-02-11] MEDS: SODIUM CHLORIDE 0.9% INJ 10 ML SYR IV SCH ×2 (06:10→17:21)
[2021-02-11] MEDS: SODIUM CHLORIDE 0.9% INJ 10 ML SYR IV PRN (06:10)
[2021-02-11] MEDS: SUCRALFATE SUSP 1GM/10ML UD PO SCH ×4 (10:46→20:48)
[2021-02-11] MEDS: HumaLOG INSULIN (NovoLOG) PER UNIT SC SCH ×4 (10:47→20:55)
[2021-02-11] MEDS: DOCUSATE SODIUM 100MG CAPSULE PO SCH ×2 (10:47→20:48)
[2021-02-11] MEDS: LACTULOSE 20 GM/30 ML SYRUP UD PO SCH (10:47)
[2021-02-11] MEDS: PREGABALIN 100 MG CAP (LYRICA) PO SCH ×2 (10:47→20:48)
[2021-02-11] MEDS: CYANOCOBALAMIN 250 MCG TABLET PO SCH (10:47)
[2021-02-11] MEDS: ENOXAPARIN 40MG/0.4ML SYRINGE (J1650 PER 10MG) SC SCH (10:47)
[2021-02-11] MEDS: FOLIC ACID 1 MG TAB PO SCH (10:47)
[2021-02-11] MEDS: BUPRENORPHINE/NALOXONE 2-0.5MG SUBLINGUAL TABLET(SUBOXONE) SL SCH ×2 (10:48→20:49)
[2021-02-11] MEDS: BACLOFEN 10 MG TAB PO SCH ×3 (10:48→20:48)
[2021-02-11] MEDS: ASPIRIN 81MG ENTERIC TABLET PO SCH (10:48)
[2021-02-11] MEDS: SOLIFENACIN 5 MG TAB PO SCH (10:48)
[2021-02-11] MEDS: TORSEMIDE 20 MG TAB PO SCH (10:48)
[2021-02-11] MEDS: PANTOPRAZOLE 40MG TAB (PROTONIX) PO SCH (10:48)
[2021-02-11] MEDS: MAGNESIUM OXIDE 400MG TAB (MAG-OX) PO SCH ×2 (10:48→20:49)
[2021-02-11] MEDS: NYSTATIN OINTMENT 15 GM TOP SCH ×2 (10:49→20:49)
[2021-02-11] MEDS: NYSTATIN 100,000 UNITS/GM TOPICAL PWD 15 GM TOP SCH ×2 (10:49→20:49)
[2021-02-11] MEDS: DULoxetine 30MG CAPSULE (CYMBALTA) PO SCH (20:48)
[2021-02-11] MEDS: FERROUS GLUCONATE 324 MG TAB PO SCH (20:48)
[2021-02-11] MEDS: ATORVASTATIN 20 MG TAB PO SCH (20:48)
[2021-02-11] MEDS: SENNA 8.6 MG TAB (SENOKOT) PO SCH (20:49)
[2021-02-12] MEDS: SODIUM CHLORIDE 0.9% INJ 10 ML SYR IV SCH ×2 (05:46→17:06)
[2021-02-12] MEDS: LEVOTHYROXINE 50MCG TABLET (0.05MG) PO SCH (05:46)
[2021-02-12 06:00] VITALS: BP 113/65
[2021-02-12] MEDS: HumaLOG INSULIN (NovoLOG) PER UNIT SC SCH ×4 (07:30→20:40)
[2021-02-12] MEDS: LACTULOSE 20 GM/30 ML SYRUP UD PO SCH ×2 (09:00→09:32)
[2021-02-12] MEDS: SUCRALFATE SUSP 1GM/10ML UD PO SCH ×4 (09:31→21:41)
[2021-02-12] MEDS: ENOXAPARIN 40MG/0.4ML SYRINGE (J1650 PER 10MG) SC SCH (09:32)
[2021-02-12] MEDS: BACLOFEN 10 MG TAB PO SCH ×3 (09:33→21:43)
[2021-02-12] MEDS: BUPRENORPHINE/NALOXONE 2-0.5MG SUBLINGUAL TABLET(SUBOXONE) SL SCH ×2 (09:33→21:44)
[2021-02-12] MEDS: CYANOCOBALAMIN 250 MCG TABLET PO SCH (09:33)
[2021-02-12] MEDS: PREGABALIN 100 MG CAP (LYRICA) PO SCH ×2 (09:33→21:43)
[2021-02-12] MEDS: MAGNESIUM OXIDE 400MG TAB (MAG-OX) PO SCH ×2 (09:33→21:44)
[2021-02-12] MEDS: ASPIRIN 81MG ENTERIC TABLET PO SCH (09:34)
[2021-02-12] MEDS: TORSEMIDE 20 MG TAB PO SCH (09:34)
[2021-02-12] MEDS: DOCUSATE SODIUM 100MG CAPSULE PO SCH ×2 (09:34→21:42)
[2021-02-12] MEDS: SOLIFENACIN 5 MG TAB PO SCH (09:34)
[2021-02-12] MEDS: PANTOPRAZOLE 40MG TAB (PROTONIX) PO SCH (09:34)
[2021-02-12] MEDS: FOLIC ACID 1 MG TAB PO SCH (09:34)
[2021-02-12] MEDS: NYSTATIN OINTMENT 15 GM TOP SCH ×2 (09:35→21:53)
[2021-02-12] MEDS: NYSTATIN 100,000 UNITS/GM TOPICAL PWD 15 GM TOP SCH ×2 (09:35→21:54)
[2021-02-12] MEDS: ONDANSETRON 4MG/2ML VIAL IV PRN (17:44)
[2021-02-12] MEDS: FERROUS GLUCONATE 324 MG TAB PO SCH (21:42)
[2021-02-12] MEDS: DULoxetine 30MG CAPSULE (CYMBALTA) PO SCH (21:42)
[2021-02-12] MEDS: ATORVASTATIN 20 MG TAB PO SCH (21:43)
[2021-02-12] MEDS: SENNA 8.6 MG TAB (SENOKOT) PO SCH (21:44)
[2021-02-13] MEDS: SODIUM CHLORIDE 0.9% INJ 10 ML SYR IV SCH ×2 (05:37→17:52)
[2021-02-13] MEDS: LEVOTHYROXINE 50MCG TABLET (0.05MG) PO SCH (05:38)
[2021-02-13 06:00] VITALS: BP 115/66
[2021-02-13 06:23] LABS: BASO # 0.1 10^3/uL (0.0-0.2); BASO % 0.6 % (0.0-1.0); EOS # 1.7 10^3/uL (0.0-0.5); EOS % 12.7 % (0.0-3.0); HEMATOCRIT 25.6 % (36.0-47.0); HEMOGLOBIN 7.9 g/dl (12.0-15.5); LYMPH # 1.7 10^3/uL (1.5-5.0); LYMPH % 12.7 % (24.0-44.0); MEAN CORPUSCULAR HEMOGLOBIN 26.2 pg (27.0-33.0); MEAN CORPUSCULAR HGB CONC 30.9 g/dl (32.0-36.5); MEAN CORPUSCULAR VOLUME 84.8 fl (80.0-96.0); MONO # 1.4 10^3/uL (0.0-0.8); MONO % 10.8 % (2.0-8.0); NEUTROPHILS # 8.2 10^3/uL (1.5-8.5); NEUTROPHILS % 62.2 % (36.0-66.0); PLATELET COUNT, AUTOMATED 474 10^3/uL (150-450); RED BLOOD COUNT 3.02 10^6/uL (4.00-5.40); WHITE BLOOD COUNT 13.2 10^3/uL (4.0-10.0)
[2021-02-13 06:42] LABS: BLOOD UREA NITROGEN 12 MG/DL (7-18); CALCIUM LEVEL 7.4 MG/DL (8.8-10.2); CARBON DIOXIDE LEVEL 34 MEQ/L (21-32); CHLORIDE LEVEL 102 MEQ/L (98-107); CREATININE FOR GFR 0.22 MG/DL (0.55-1.30); GLOMERULAR FILTRATION RATE > 60.0 (>45); GLUCOSE, FASTING 115 MG/DL (70-100); POTASSIUM SERUM 4.4 MEQ/L (3.5-5.1); SODIUM LEVEL 140 MEQ/L (136-145)
[2021-02-13] MEDS: SUCRALFATE SUSP 1GM/10ML UD PO SCH ×4 (08:15→20:02)
[2021-02-13] MEDS: LACTULOSE 20 GM/30 ML SYRUP UD PO SCH (08:15)
[2021-02-13] MEDS: BUPRENORPHINE/NALOXONE 2-0.5MG SUBLINGUAL TABLET(SUBOXONE) SL SCH ×2 (08:15→20:06)
[2021-02-13] MEDS: CYANOCOBALAMIN 250 MCG TABLET PO SCH (08:16)
[2021-02-13] MEDS: HumaLOG INSULIN (NovoLOG) PER UNIT SC SCH ×4 (08:16→21:00)
[2021-02-13] MEDS: MAGNESIUM OXIDE 400MG TAB (MAG-OX) PO SCH ×2 (08:16→20:06)
[2021-02-13] MEDS: SOLIFENACIN 5 MG TAB PO SCH (08:16)
[2021-02-13] MEDS: FOLIC ACID 1 MG TAB PO SCH (08:16)
[2021-02-13] MEDS: BACLOFEN 10 MG TAB PO SCH ×3 (08:16→20:05)
[2021-02-13] MEDS: DOCUSATE SODIUM 100MG CAPSULE PO SCH ×2 (08:16→20:02)
[2021-02-13] MEDS: PANTOPRAZOLE 40MG TAB (PROTONIX) PO SCH (08:16)
[2021-02-13] MEDS: PREGABALIN 100 MG CAP (LYRICA) PO SCH ×2 (08:16→20:05)
[2021-02-13] MEDS: ENOXAPARIN 40MG/0.4ML SYRINGE (J1650 PER 10MG) SC SCH (08:16)
[2021-02-13] MEDS: TORSEMIDE 20 MG TAB PO SCH (08:16)
[2021-02-13] MEDS: ASPIRIN 81MG ENTERIC TABLET PO SCH (08:16)
[2021-02-13] MEDS: NYSTATIN OINTMENT 15 GM TOP SCH ×2 (08:17→20:01)
[2021-02-13] MEDS: NYSTATIN 100,000 UNITS/GM TOPICAL PWD 15 GM TOP SCH ×2 (08:17→20:01)
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
[2021-02-13] MEDS: DULoxetine 30MG CAPSULE (CYMBALTA) PO SCH (20:04)
[2021-02-13] MEDS: ATORVASTATIN 20 MG TAB PO SCH (20:05)
[2021-02-13] MEDS: SENNA 8.6 MG TAB (SENOKOT) PO SCH (20:06)
[2021-02-13] MEDS: FERROUS GLUCONATE 324 MG TAB PO SCH (20:13)
[2021-02-14] MEDS: SODIUM CHLORIDE 0.9% INJ 10 ML SYR IV SCH ×2 (05:30→16:38)
[2021-02-14] MEDS: LEVOTHYROXINE 50MCG TABLET (0.05MG) PO SCH (05:31)
[2021-02-14 06:00] VITALS: BP 116/67
[2021-02-14] MEDS: HumaLOG INSULIN (NovoLOG) PER UNIT SC SCH ×4 (07:30→20:58)
[2021-02-14 08:00] VITALS: BP 108/58
[2021-02-14] MEDS: DOCUSATE SODIUM 100MG CAPSULE PO SCH ×2 (09:37→21:02)
[2021-02-14] MEDS: MAGNESIUM OXIDE 400MG TAB (MAG-OX) PO SCH ×2 (09:37→21:04)
[2021-02-14] MEDS: BACLOFEN 10 MG TAB PO SCH ×3 (09:37→21:03)
[2021-02-14] MEDS: CYANOCOBALAMIN 250 MCG TABLET PO SCH (09:38)
[2021-02-14] MEDS: PANTOPRAZOLE 40MG TAB (PROTONIX) PO SCH (09:38)
[2021-02-14] MEDS: ASPIRIN 81MG ENTERIC TABLET PO SCH (09:39)
[2021-02-14] MEDS: TORSEMIDE 20 MG TAB PO SCH (09:40)
[2021-02-14] MEDS: SOLIFENACIN 5 MG TAB PO SCH (09:41)
[2021-02-14] MEDS: FOLIC ACID 1 MG TAB PO SCH (09:41)
[2021-02-14] MEDS: LACTULOSE 20 GM/30 ML SYRUP UD PO SCH (09:42)
[2021-02-14] MEDS: ENOXAPARIN 40MG/0.4ML SYRINGE (J1650 PER 10MG) SC SCH (09:43)
[2021-02-14] MEDS: NYSTATIN OINTMENT 15 GM TOP SCH ×2 (09:51→21:05)
[2021-02-14] MEDS: NYSTATIN 100,000 UNITS/GM TOPICAL PWD 15 GM TOP SCH ×2 (09:52→23:26)
[2021-02-14] MEDS: PREGABALIN 100 MG CAP (LYRICA) PO SCH ×2 (10:08→21:03)
[2021-02-14] MEDS: BUPRENORPHINE/NALOXONE 2-0.5MG SUBLINGUAL TABLET(SUBOXONE) SL SCH ×2 (10:08→21:04)
[2021-02-14] MEDS: SUCRALFATE SUSP 1GM/10ML UD PO SCH ×4 (10:08→21:02)
[2021-02-14] MEDS: ONDANSETRON 4MG/2ML VIAL IV PRN (10:08)
[2021-02-14] MEDS: SODIUM CHLORIDE 0.9% INJ 10 ML SYR IV PRN (10:17)
[2021-02-14] MEDS ORDERED: CYSTO-CONRAY II 17.2% 250ML VIAL (Q9958) As Ordered ONE (11:26)
[2021-02-14] MEDS ORDERED: NYST10OI TOP (13:51)
[2021-02-14 14:00] VITALS: BP 112/70
--- NOTE | 2021-02-14 17:21 | REP ---
INDICATION: Looking for extravasation from her wound. COMPARISON: None TECHNIQUE: This procedure was performed by Genesis Solorio [facility], under the direct supervision of Dr. Hull. Images were reviewed with Dr. Hull prior to dictation. The patient arrived in the department with an indwelling Wood catheter. Two hundred fifty ml of Cysto-Conray II was instilled into the bladder in a retrograde flow. Multiple fluoroscopic radiographs were obtained. FINDINGS: The bladder is normal in position and contour. Due to patient incontinence imaging of a fully distended bladder was not attainable. No extraluminal contrast is seen in the pelvis. No fistula is visualized. No extravasation of contrast outside of the bladder is visualized. There is no evidence of ureteral reflux. There is essentially no postvoid residual. IMPRESSION: Unable to fully distend the bladder due to patient incontinence, no extraluminal contrast is seen in the pelvis. 0.2 minutes of fluoroscopy time was utilized for this procedure. Some fluoroscopic images are performed with last image hold technology. These images require no additional radiation. <Electronically signed by Genesis Solorio > 02/14/21 1714 <Electronically signed by Bishop Hull > 02/14/21 1714
[2021-02-14] MEDS: DULoxetine 30MG CAPSULE (CYMBALTA) PO SCH (21:03)
[2021-02-14] MEDS: ATORVASTATIN 20 MG TAB PO SCH (21:03)
[2021-02-14] MEDS: FERROUS GLUCONATE 324 MG TAB PO SCH (21:03)
[2021-02-14] MEDS: SENNA 8.6 MG TAB (SENOKOT) PO SCH (21:04)
[2021-02-15] MEDS: LEVOTHYROXINE 50MCG TABLET (0.05MG) PO SCH (05:54)
[2021-02-15] MEDS: SODIUM CHLORIDE 0.9% INJ 10 ML SYR IV SCH ×2 (05:54→18:04)
[2021-02-15 06:00] VITALS: BP 123/64
[2021-02-15] MEDS: HumaLOG INSULIN (NovoLOG) PER UNIT SC SCH ×4 (07:30→21:00)
[2021-02-15] MEDS: SUCRALFATE SUSP 1GM/10ML UD PO SCH ×4 (07:30→21:49)
[2021-02-15] MEDS: LACTULOSE 20 GM/30 ML SYRUP UD PO SCH (10:15)
[2021-02-15] MEDS: ENOXAPARIN 40MG/0.4ML SYRINGE (J1650 PER 10MG) SC SCH (10:15)
[2021-02-15] MEDS: BUPRENORPHINE/NALOXONE 2-0.5MG SUBLINGUAL TABLET(SUBOXONE) SL SCH ×2 (10:16→21:50)
[2021-02-15] MEDS: PREGABALIN 100 MG CAP (LYRICA) PO SCH ×2 (10:16→21:50)
[2021-02-15] MEDS: BACLOFEN 10 MG TAB PO SCH ×3 (10:16→21:50)
[2021-02-15] MEDS: DOCUSATE SODIUM 100MG CAPSULE PO SCH ×2 (10:16→21:50)
[2021-02-15] MEDS: SOLIFENACIN 5 MG TAB PO SCH (10:16)
[2021-02-15] MEDS: ASPIRIN 81MG ENTERIC TABLET PO SCH (10:16)
[2021-02-15] MEDS: PANTOPRAZOLE 40MG TAB (PROTONIX) PO SCH (10:16)
[2021-02-15] MEDS: CYANOCOBALAMIN 250 MCG TABLET PO SCH (10:16)
[2021-02-15] MEDS: NYSTATIN 100,000 UNITS/GM TOPICAL PWD 15 GM TOP SCH ×2 (10:17→21:49)
[2021-02-15] MEDS: NYSTATIN OINTMENT 15 GM TOP SCH ×2 (10:17→21:51)
[2021-02-15] MEDS: TORSEMIDE 20 MG TAB PO SCH (10:17)
[2021-02-15] MEDS: MAGNESIUM OXIDE 400MG TAB (MAG-OX) PO SCH ×2 (10:17→21:50)
[2021-02-15] MEDS: FOLIC ACID 1 MG TAB PO SCH (10:17)
[2021-02-15 17:03] LABS: HEMATOCRIT 25.7 % (36.0-47.0); HEMOGLOBIN 7.9 g/dl (12.0-15.5); MEAN CORPUSCULAR HEMOGLOBIN 25.6 pg (27.0-33.0); MEAN CORPUSCULAR HGB CONC 30.7 g/dl (32.0-36.5); MEAN CORPUSCULAR VOLUME 83.4 fl (80.0-96.0); PLATELET COUNT, AUTOMATED 413 10^3/uL (150-450); RED BLOOD COUNT 3.08 10^6/uL (4.00-5.40); WHITE BLOOD COUNT 12.2 10^3/uL (4.0-10.0)
[2021-02-15 17:26] LABS: BLOOD UREA NITROGEN 13 MG/DL (7-18); CALCIUM LEVEL 7.8 MG/DL (8.8-10.2); CARBON DIOXIDE LEVEL 33 MEQ/L (21-32); CHLORIDE LEVEL 99 MEQ/L (98-107); CREATININE FOR GFR 0.26 MG/DL (0.55-1.30); GLOMERULAR FILTRATION RATE > 60.0 (>45); GLUCOSE, FASTING 141 MG/DL (70-100); PHOSPHORUS LEVEL 4.8 MG/DL (2.5-4.9); POTASSIUM SERUM 4.9 MEQ/L (3.5-5.1); SODIUM LEVEL 137 MEQ/L (136-145)
[2021-02-15 17:42] LABS: HEMOGLOBIN A1c 6.5 %
[2021-02-15] MEDS: ONDANSETRON 4MG/2ML VIAL IV PRN (18:20)
[2021-02-15] MEDS: DULoxetine 30MG CAPSULE (CYMBALTA) PO SCH (21:49)
[2021-02-15] MEDS: FERROUS GLUCONATE 324 MG TAB PO SCH (21:50)
[2021-02-15] MEDS: ATORVASTATIN 20 MG TAB PO SCH (21:50)
[2021-02-15] MEDS: SENNA 8.6 MG TAB (SENOKOT) PO SCH (21:50)
[2021-02-16 06:00] VITALS: BP 122/74
[2021-02-16] MEDS: LEVOTHYROXINE 50MCG TABLET (0.05MG) PO SCH (06:19)
[2021-02-16] MEDS: SODIUM CHLORIDE 0.9% INJ 10 ML SYR IV SCH ×2 (06:19→17:29)
[2021-02-16] MEDS: HumaLOG INSULIN (NovoLOG) PER UNIT SC SCH ×4 (08:09→21:00)
[2021-02-16] MEDS: LACTULOSE 20 GM/30 ML SYRUP UD PO SCH (08:09)
[2021-02-16] MEDS: DOCUSATE SODIUM 100MG CAPSULE PO SCH ×2 (08:09→23:07)
[2021-02-16] MEDS: SUCRALFATE SUSP 1GM/10ML UD PO SCH ×4 (08:09→23:06)
[2021-02-16] MEDS: PREGABALIN 100 MG CAP (LYRICA) PO SCH ×2 (08:10→23:07)
[2021-02-16] MEDS: CYANOCOBALAMIN 250 MCG TABLET PO SCH (08:10)
[2021-02-16] MEDS: ENOXAPARIN 40MG/0.4ML SYRINGE (J1650 PER 10MG) SC SCH (08:10)
[2021-02-16] MEDS: MAGNESIUM OXIDE 400MG TAB (MAG-OX) PO SCH ×2 (08:10→23:07)
[2021-02-16] MEDS: PANTOPRAZOLE 40MG TAB (PROTONIX) PO SCH (08:10)
[2021-02-16] MEDS: TORSEMIDE 20 MG TAB PO SCH (08:10)
[2021-02-16] MEDS: SOLIFENACIN 5 MG TAB PO SCH (08:10)
[2021-02-16] MEDS: ASPIRIN 81MG ENTERIC TABLET PO SCH (08:10)
[2021-02-16] MEDS: FOLIC ACID 1 MG TAB PO SCH (08:10)
[2021-02-16] MEDS: BACLOFEN 10 MG TAB PO SCH ×3 (08:10→23:07)
[2021-02-16] MEDS: BUPRENORPHINE/NALOXONE 2-0.5MG SUBLINGUAL TABLET(SUBOXONE) SL SCH ×2 (08:11→23:06)
[2021-02-16] MEDS: NYSTATIN 100,000 UNITS/GM TOPICAL PWD 15 GM TOP SCH ×2 (08:12→21:00)
[2021-02-16] MEDS: NYSTATIN OINTMENT 15 GM TOP SCH ×2 (08:12→23:08)
[2021-02-16] MEDS: ONDANSETRON 4MG/2ML VIAL IV PRN ×2 (12:31→23:13)
[2021-02-16] MEDS: diazePAM 2 MG TAB PO PRN (17:33)
[2021-02-16] MEDS: FERROUS GLUCONATE 324 MG TAB PO SCH (23:07)
[2021-02-16] MEDS: SENNA 8.6 MG TAB (SENOKOT) PO SCH (23:07)
[2021-02-16] MEDS: ATORVASTATIN 20 MG TAB PO SCH (23:07)
[2021-02-16] MEDS: DULoxetine 30MG CAPSULE (CYMBALTA) PO SCH (23:08)
[2021-02-16] MEDS: SODIUM CHLORIDE 0.9% INJ 10 ML SYR IV PRN (23:15)
[2021-02-17 06:00] VITALS: BP 113/61
[2021-02-17] MEDS: SODIUM CHLORIDE 0.9% INJ 10 ML SYR IV SCH ×2 (06:21→18:29)
[2021-02-17] MEDS: LEVOTHYROXINE 50MCG TABLET (0.05MG) PO SCH (06:21)
[2021-02-17 06:43] LABS: HEMATOCRIT 23.8 % (36.0-47.0); HEMOGLOBIN 7.3 g/dl (12.0-15.5); MEAN CORPUSCULAR HEMOGLOBIN 25.6 pg (27.0-33.0); MEAN CORPUSCULAR HGB CONC 30.7 g/dl (32.0-36.5); MEAN CORPUSCULAR VOLUME 83.5 fl (80.0-96.0); PLATELET COUNT, AUTOMATED 470 10^3/uL (150-450); RED BLOOD COUNT 2.85 10^6/uL (4.00-5.40); WHITE BLOOD COUNT 13.3 10^3/uL (4.0-10.0)
[2021-02-17 07:16] LABS: BLOOD UREA NITROGEN 15 MG/DL (7-18); CALCIUM LEVEL 7.8 MG/DL (8.8-10.2); CARBON DIOXIDE LEVEL 33 MEQ/L (21-32); CHLORIDE LEVEL 100 MEQ/L (98-107); CREATININE FOR GFR 0.26 MG/DL (0.55-1.30); GLOMERULAR FILTRATION RATE > 60.0 (>45); GLUCOSE, FASTING 103 MG/DL (70-100); MAGNESIUM LEVEL 2.1 MG/DL (1.8-2.4); PHOSPHORUS LEVEL 4.7 MG/DL (2.5-4.9); POTASSIUM SERUM 4.3 MEQ/L (3.5-5.1); SODIUM LEVEL 138 MEQ/L (136-145)
[2021-02-17] MEDS: PREGABALIN 100 MG CAP (LYRICA) PO SCH (08:03)
[2021-02-17] MEDS: TORSEMIDE 20 MG TAB PO SCH (08:03)
[2021-02-17] MEDS: DOCUSATE SODIUM 100MG CAPSULE PO SCH (08:03)
[2021-02-17] MEDS: PANTOPRAZOLE 40MG TAB (PROTONIX) PO SCH (08:03)
[2021-02-17] MEDS: BUPRENORPHINE/NALOXONE 2-0.5MG SUBLINGUAL TABLET(SUBOXONE) SL SCH (08:03)
[2021-02-17] MEDS: SUCRALFATE SUSP 1GM/10ML UD PO SCH ×3 (08:03→18:28)
[2021-02-17] MEDS: ASPIRIN 81MG ENTERIC TABLET PO SCH (08:03)
[2021-02-17] MEDS: LACTULOSE 20 GM/30 ML SYRUP UD PO SCH (08:03)
[2021-02-17] MEDS: MAGNESIUM OXIDE 400MG TAB (MAG-OX) PO SCH (08:04)
[2021-02-17] MEDS: FOLIC ACID 1 MG TAB PO SCH (08:04)
[2021-02-17] MEDS: BACLOFEN 10 MG TAB PO SCH ×2 (08:04→18:28)
[2021-02-17] MEDS: ENOXAPARIN 40MG/0.4ML SYRINGE (J1650 PER 10MG) SC SCH (08:04)
[2021-02-17] MEDS: HumaLOG INSULIN (NovoLOG) PER UNIT SC SCH ×4 (08:05→21:00)
[2021-02-17] MEDS: NYSTATIN OINTMENT 15 GM TOP SCH (09:00)
[2021-02-17] MEDS: SOLIFENACIN 5 MG TAB PO SCH (10:25)
[2021-02-17] MEDS: CYANOCOBALAMIN 250 MCG TABLET PO SCH (10:25)
[2021-02-17] MEDS: NYSTATIN 100,000 UNITS/GM TOPICAL PWD 15 GM TOP SCH (10:26)
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
[2021-02-17 12:25] VITALS: BP 111/67
[2021-02-17 12:39] VITALS: BP 109/64
[2021-02-17 13:34] VITALS: BP 114/74
[2021-02-17 14:25] VITALS: BP 101/80
--- NOTE | 2021-02-17 15:07 | ECGEPIP ---
[facility] Test Date: 2021-02-16 Pat Name: HANNA GARVIN Department: Room: [place] [address] Gender: Female Supervisor Insecticide: NELLI : 1955 Requested By: TAYLA Nelson Order Number: [id number] Reading MD: Samantha Manzano Measurements Intervals [place] Rate: 113 P: 29 MA: 146 QRS: -13 QRSD: 78 T: 17 QT: 326 QTc: 447 Interpretive Statements Sinus tachycardia Anterolateral infarct , age undetermined Since 01/24/21 absent R waves in V3-V6 Electronically Signed on 02-17-2021 15:07:13 EDT by Samantha Manzano
[2021-02-18] MEDS: SUCRALFATE SUSP 1GM/10ML UD PO SCH ×5 (00:16→20:51)
[2021-02-18] MEDS: PREGABALIN 100 MG CAP (LYRICA) PO SCH ×3 (00:17→20:52)
[2021-02-18] MEDS: BACLOFEN 10 MG TAB PO SCH ×4 (00:17→20:52)
[2021-02-18] MEDS: FERROUS GLUCONATE 324 MG TAB PO SCH ×2 (00:17→20:52)
[2021-02-18] MEDS: SENNA 8.6 MG TAB (SENOKOT) PO SCH ×2 (00:17→20:52)
[2021-02-18] MEDS: DOCUSATE SODIUM 100MG CAPSULE PO SCH ×3 (00:17→20:51)
[2021-02-18] MEDS: DULoxetine 30MG CAPSULE (CYMBALTA) PO SCH ×2 (00:17→20:51)
[2021-02-18] MEDS: ATORVASTATIN 20 MG TAB PO SCH ×2 (00:18→20:52)
[2021-02-18] MEDS: METOCLOPRAMIDE 10 MG TAB PO PRN (00:18)
[2021-02-18] MEDS: MAGNESIUM OXIDE 400MG TAB (MAG-OX) PO SCH ×3 (00:18→20:52)
[2021-02-18] MEDS: BUPRENORPHINE/NALOXONE 2-0.5MG SUBLINGUAL TABLET(SUBOXONE) SL SCH ×3 (00:18→20:52)
[2021-02-18] MEDS: NYSTATIN 100,000 UNITS/GM TOPICAL PWD 15 GM TOP SCH ×3 (00:24→20:25)
[2021-02-18] MEDS: NYSTATIN OINTMENT 15 GM TOP SCH ×3 (00:24→20:25)
[2021-02-18] MEDS: LEVOTHYROXINE 50MCG TABLET (0.05MG) PO SCH (05:43)
[2021-02-18] MEDS: SODIUM CHLORIDE 0.9% INJ 10 ML SYR IV SCH ×2 (05:44→18:00)
[2021-02-18 06:00] VITALS: BP 138/92
[2021-02-18 06:09] LABS: HEMATOCRIT 31.3 % (36.0-47.0); MEAN CORPUSCULAR HEMOGLOBIN 25.9 pg (27.0-33.0); MEAN CORPUSCULAR VOLUME 83.7 fl (80.0-96.0); RED BLOOD COUNT 3.74 10^6/uL (4.00-5.40); WHITE BLOOD COUNT 17.8 10^3/uL (4.0-10.0)
[2021-02-18 06:13] LABS: HEMOGLOBIN 9.7 g/dl (12.0-15.5)
[2021-02-18 06:14] LABS: PLATELET COUNT, AUTOMATED 602 10^3/uL (150-450)
[2021-02-18 06:40] LABS: BLOOD UREA NITROGEN 16 MG/DL (7-18); CALCIUM LEVEL 8.1 MG/DL (8.8-10.2); CARBON DIOXIDE LEVEL 33 MEQ/L (21-32); CHLORIDE LEVEL 97 MEQ/L (98-107); CREATININE FOR GFR 0.43 MG/DL (0.55-1.30); GLOMERULAR FILTRATION RATE > 60.0 (>45); GLUCOSE, FASTING 147 MG/DL (70-100); MAGNESIUM LEVEL 2.2 MG/DL (1.8-2.4); PHOSPHORUS LEVEL 5.4 MG/DL (2.5-4.9); POTASSIUM SERUM 4.7 MEQ/L (3.5-5.1); SODIUM LEVEL 136 MEQ/L (136-145)
[2021-02-18] MEDS: SOLIFENACIN 5 MG TAB PO SCH (09:07)
[2021-02-18] MEDS: PANTOPRAZOLE 40MG TAB (PROTONIX) PO SCH (09:07)
[2021-02-18] MEDS: LACTULOSE 20 GM/30 ML SYRUP UD PO SCH (09:07)
[2021-02-18] MEDS: TORSEMIDE 20 MG TAB PO SCH (09:07)
[2021-02-18] MEDS: HumaLOG INSULIN (NovoLOG) PER UNIT SC SCH ×4 (09:08→20:25)
[2021-02-18] MEDS: ASPIRIN 81MG ENTERIC TABLET PO SCH (09:08)
[2021-02-18] MEDS: FOLIC ACID 1 MG TAB PO SCH (09:08)
[2021-02-18] MEDS: CYANOCOBALAMIN 250 MCG TABLET PO SCH (09:09)
[2021-02-18] MEDS: ENOXAPARIN 40MG/0.4ML SYRINGE (J1650 PER 10MG) SC SCH (09:10)
[2021-02-18 14:00] VITALS: BP 123/66
--- NOTE | 2021-02-18 15:54 | REP ---
INDICATION: r/o dvt COMPARISON: None. TECHNIQUE: Real time compression and duplex Doppler evaluation of the left upper extremity deep venous system is performed. Compression of left brachial vein is limited due to patient position. The central left subclavian vein is not well visualized. FINDINGS: The left subclavian, jugular, axillary, brachial, basilic and cephalic veins are fully compressible where accessible with transducer pressure, and demonstrate no intraluminal thrombus and normal venous waveforms. There is no evidence of deep venous thrombosis. IMPRESSION: No evidence of deep venous thrombosis of the Left upper extremity deep vein system. <Electronically signed by Bishop Hull > 02/18/21 [id number]
[2021-02-18] MEDS: SODIUM CHLORIDE 0.9% INJ 10 ML SYR IV PRN (16:45)
[2021-02-18 17:08] LABS: HEMATOCRIT 28.7 % (36.0-47.0); HEMOGLOBIN 9.1 g/dl (12.0-15.5); MEAN CORPUSCULAR HEMOGLOBIN 26.6 pg (27.0-33.0); MEAN CORPUSCULAR HGB CONC 31.7 g/dl (32.0-36.5); MEAN CORPUSCULAR VOLUME 83.9 fl (80.0-96.0); PLATELET COUNT, AUTOMATED 527 10^3/uL (150-450); RED BLOOD COUNT 3.42 10^6/uL (4.00-5.40)
[2021-02-19 04:00] VITALS: BP 121/66
[2021-02-19] MEDS: SODIUM CHLORIDE 0.9% INJ 10 ML SYR IV SCH ×2 (05:07→18:47)
[2021-02-19] MEDS: LEVOTHYROXINE 50MCG TABLET (0.05MG) PO SCH (05:09)
[2021-02-19 06:10] LABS: HEMATOCRIT 26.5 % (36.0-47.0); HEMOGLOBIN 8.1 g/dl (12.0-15.5); MEAN CORPUSCULAR HGB CONC 30.6 g/dl (32.0-36.5); MEAN CORPUSCULAR VOLUME 84.9 fl (80.0-96.0); PLATELET COUNT, AUTOMATED 496 10^3/uL (150-450); RED BLOOD COUNT 3.12 10^6/uL (4.00-5.40); WHITE BLOOD COUNT 13.8 10^3/uL (4.0-10.0)
[2021-02-19 06:44] LABS: BLOOD UREA NITROGEN 16 MG/DL (7-18); CALCIUM LEVEL 8.3 MG/DL (8.8-10.2); CARBON DIOXIDE LEVEL 33 MEQ/L (21-32); CHLORIDE LEVEL 100 MEQ/L (98-107); CREATININE FOR GFR 0.33 MG/DL (0.55-1.30); GLOMERULAR FILTRATION RATE > 60.0 (>45); GLUCOSE, FASTING 110 MG/DL (70-100); MAGNESIUM LEVEL 2.2 MG/DL (1.8-2.4); PHOSPHORUS LEVEL 5.7 MG/DL (2.5-4.9); POTASSIUM SERUM 4.6 MEQ/L (3.5-5.1); SODIUM LEVEL 138 MEQ/L (136-145)
[2021-02-19] MEDS: SUCRALFATE SUSP 1GM/10ML UD PO SCH ×4 (09:06→21:39)
[2021-02-19] MEDS: LACTULOSE 20 GM/30 ML SYRUP UD PO SCH (09:06)
[2021-02-19] MEDS: HumaLOG INSULIN (NovoLOG) PER UNIT SC SCH ×4 (09:07→21:00)
[2021-02-19] MEDS: ASPIRIN 81MG ENTERIC TABLET PO SCH (09:07)
[2021-02-19] MEDS: SOLIFENACIN 5 MG TAB PO SCH (09:07)
[2021-02-19] MEDS: DOCUSATE SODIUM 100MG CAPSULE PO SCH ×2 (09:08→21:39)
[2021-02-19] MEDS: CYANOCOBALAMIN 250 MCG TABLET PO SCH (09:08)
[2021-02-19] MEDS: PANTOPRAZOLE 40MG TAB (PROTONIX) PO SCH (09:08)
[2021-02-19] MEDS: FOLIC ACID 1 MG TAB PO SCH (09:08)
[2021-02-19] MEDS: PREGABALIN 100 MG CAP (LYRICA) PO SCH ×2 (09:08→21:39)
[2021-02-19] MEDS: TORSEMIDE 20 MG TAB PO SCH (09:08)
[2021-02-19] MEDS: MAGNESIUM OXIDE 400MG TAB (MAG-OX) PO SCH ×2 (09:09→21:39)
[2021-02-19] MEDS: BACLOFEN 10 MG TAB PO SCH ×3 (09:09→21:39)
[2021-02-19] MEDS: NYSTATIN 100,000 UNITS/GM TOPICAL PWD 15 GM TOP SCH ×2 (09:10→21:00)
[2021-02-19] MEDS: ENOXAPARIN 40MG/0.4ML SYRINGE (J1650 PER 10MG) SC SCH (09:10)
[2021-02-19] MEDS: NYSTATIN OINTMENT 15 GM TOP SCH ×2 (09:11→21:00)
[2021-02-19] MEDS: BUPRENORPHINE/NALOXONE 2-0.5MG SUBLINGUAL TABLET(SUBOXONE) SL SCH ×2 (09:16→21:40)
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
[2021-02-19] MEDS: SENNA 8.6 MG TAB (SENOKOT) PO SCH (21:39)
[2021-02-19] MEDS: FERROUS GLUCONATE 324 MG TAB PO SCH (21:39)
[2021-02-19] MEDS: ATORVASTATIN 20 MG TAB PO SCH (21:39)
[2021-02-19] MEDS: DULoxetine 30MG CAPSULE (CYMBALTA) PO SCH (21:39)
[2021-02-19] MEDS: METOCLOPRAMIDE 10 MG TAB PO PRN (21:40)
[2021-02-20 06:00] VITALS: BP 117/68
[2021-02-20] MEDS: LEVOTHYROXINE 50MCG TABLET (0.05MG) PO SCH (06:23)
[2021-02-20] MEDS: SODIUM CHLORIDE 0.9% INJ 10 ML SYR IV SCH ×2 (06:23→17:35)
[2021-02-20] MEDS: SODIUM CHLORIDE 0.9% INJ 10 ML SYR IV PRN (06:24)
[2021-02-20] MEDS: LACTULOSE 20 GM/30 ML SYRUP UD PO SCH (09:00)
[2021-02-20] MEDS: SUCRALFATE SUSP 1GM/10ML UD PO SCH ×4 (10:09→20:23)
[2021-02-20] MEDS: ENOXAPARIN 40MG/0.4ML SYRINGE (J1650 PER 10MG) SC SCH (10:09)
[2021-02-20] MEDS: TORSEMIDE 20 MG TAB PO SCH (10:11)
[2021-02-20] MEDS: SOLIFENACIN 5 MG TAB PO SCH (10:11)
[2021-02-20] MEDS: FOLIC ACID 1 MG TAB PO SCH (10:11)
[2021-02-20] MEDS: CYANOCOBALAMIN 250 MCG TABLET PO SCH (10:11)
[2021-02-20] MEDS: BACLOFEN 10 MG TAB PO SCH ×3 (10:11→20:24)
[2021-02-20] MEDS: HumaLOG INSULIN (NovoLOG) PER UNIT SC SCH ×4 (10:11→20:39)
[2021-02-20] MEDS: PANTOPRAZOLE 40MG TAB (PROTONIX) PO SCH (10:11)
[2021-02-20] MEDS: DOCUSATE SODIUM 100MG CAPSULE PO SCH ×2 (10:11→20:23)
[2021-02-20] MEDS: PREGABALIN 100 MG CAP (LYRICA) PO SCH ×2 (10:12→20:24)
[2021-02-20] MEDS: METOCLOPRAMIDE 10 MG TAB PO PRN ×2 (10:12→20:25)
[2021-02-20] MEDS: MAGNESIUM OXIDE 400MG TAB (MAG-OX) PO SCH ×2 (10:12→20:24)
[2021-02-20] MEDS: ASPIRIN 81MG ENTERIC TABLET PO SCH (10:12)
[2021-02-20] MEDS: NYSTATIN 100,000 UNITS/GM TOPICAL PWD 15 GM TOP SCH ×2 (10:14→20:24)
[2021-02-20] MEDS: NYSTATIN OINTMENT 15 GM TOP SCH ×2 (10:14→20:24)
[2021-02-20] MEDS: BUPRENORPHINE/NALOXONE 2-0.5MG SUBLINGUAL TABLET(SUBOXONE) SL SCH ×2 (10:19→20:24)
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
[2021-02-20] MEDS: DULoxetine 30MG CAPSULE (CYMBALTA) PO SCH (20:23)
[2021-02-20] MEDS: ATORVASTATIN 20 MG TAB PO SCH (20:24)
[2021-02-20] MEDS: FERROUS GLUCONATE 324 MG TAB PO SCH (20:24)
[2021-02-20] MEDS: SENNA 8.6 MG TAB (SENOKOT) PO SCH (20:24)
--- NOTE | 2021-02-20 20:24 | CR.PDOC ---
General Date of Consultation: Feb 20, 2021 Attending Physician: TAYLA NEVILLE M.D. Consultation REASON FOR CONSULTATION/CHIEF COMPLAINT: Ms. Stiles is a 65 year old referred to palliative care for clarification of goals of care HISTORY OF PRESENT ILLNESS: 65 year old female with spinal cord injury with quadriplegia, unstageable sacral decubitus, neurogenic bowel and bladder with urinary leaking into wound, tracheostomy. She is known to me from previous admissions. She has multiple admissions at [facility] for various infections including pneumonia, UTI, respiratory failure. She has not been able to be placed in SNF as the best pain management regimen for her is with suboxone which is not generally available in SNF. On a previous admission she had a MOLST form indicating DNR/DNI and comfort measures only, however, a few hours after she agreed to this she changed her mind and changed ENGINE MANAGER to limited medical interventions. She is once again admitted here and at this time I am informed her SO, Choco, is indicating he cannot care for her at home any longer as her care needs are too great. PAST MEDICAL HISTORY: 1. morbid obesity 2. quadriplegia 3. neurogenic bladder/bowel 4. type 2 DM 5. hypothyroidism 6. arthritis 7. respiratory failure with hypoxia and hypercarbia 8. sacral decubitus PAST SURGICAL HISTORY: 1. spinal fusion 2. appendectomy FAMILY HISTORY: Father: [place] Mother: HTN, CVA Siblings: heart disease, DM, SOCIAL HISTORY: Marital status and/or living arrangements: lives with SO when not admitted to the hospital. Tobacco use: former smoker ETOH: occasional Illicit drug use: none IV drug use: none FUNCTIONAL STATUS: bedbound, total assist with all ADL's INFORMATION SHARING AND DECISION MAKING: difficulty making decisions. Her most frequent response to questions is "I don't know". She expresses she wants to get better, however, refuses care, repositioning, dietary recommendations that might improve her DM. She tends to defer to Choco for decisions, and he states "It's her choice". Nadege does not appear to have high level intellectual functio erin and explanations must be on a simple understandable level. She appears to have a lot of either denial or does not understand the severity of her medical condition. SPIRITUALITY: not discusssed ASSESSMENT/PLAN: I did discuss with Nadege that her care needs require 24/7 nursing care and her repeated admissions here, with worsening infections, UTI, worsening decubitus ulcer are evidence that her family ( really only Choco is involved in her care ) is not able to provide care for her that is adequate. I told her that the hospital is not really the best place for her as she is at very high risk of nosocomial infection Advanced Care Planning: She has a MOLST form indicating DNR/DNI, limited medical interventions. Symptom Management: Currently her pain is well controlled with Suboxone according to both Nadege and her nurse. She did not have any other symptom complaints Goals of Care: proper placement to ensure her care needs and provide her with a better quality of life. On a previous admission she was interested in the hospice residence as an option. I would suggest a hospice informational meeting be arranged to see if this is something she might once again find acceptable. They have informed me subxone films could be administered there unlike SNF. Pertinent Diagnoses: quadriplegia, sacral decubitus, neurogenic bladder/bowel, respiratory failure. Time in 1929 Time out 2024 Vital Signs/I&O Vital Signs Date Time Temp Pulse Resp B/P (MAP) Pulse Ox O2 Delivery O2 Flow Rate FiO2 02/20/21 08:00 5.0 28 02/20/21 06:00 97.9 107 20 117/68 (84) 93 Trach Collar I&O- Last 24 Hours up to 6 AM 02/20/21 06:00 Intake Total 2765 ml Output Total 1400 ml Balance 1365 ml Laboratory Data Labs 24H Laboratory Tests 2 02/19/21 20:16: Bedside Glucose (Misc Panel) 112 02/20/21 06:21: Bedside Glucose (Misc Panel) 140H 02/20/21 11:54: Bedside Glucose (Misc Panel) 129H 02/20/21 17:33: Bedside Glucose (Misc Panel) 107 Microbiology Microbiology 02/17/21 Stool Occult Blood (PARISA) - Final, Complete Home Medications Scheduled Aspirin (Aspirin EC), 81 MG PO DAILY, (Reported) Atorvastatin Calcium (Atorvastatin Calcium), 40 MG PO QHS, (Reported) Baclofen (Baclofen), 5 MG PO TID, (Reported) Cyanocobalamin (Vitamin B-12) (Vitamin B-12), 250 MCG PO DAILY, (Reported) Docusate Sodium (Docusate Sodium), 100 MG PO BID, (Reported) Duloxetine Hcl (Duloxetine HCl), 60 MG PO QHS, (Reported) Ferrous Gluconate (Ferrous Gluconate), 324 MG PO QHS, (Reported) Folic Acid (Folic Acid), 1 MG PO DAILY, (Reported) Lactulose (Lactulose), 30 ML PO DAILY, (Reported) Levothyroxine Sodium (Synthroid), 50 MCG PO DAILY, (Reported) Nystatin (Nystatin Powder), 1 DOSE TOP BID, (Reported) Nystatin (Nystatin), 0 TOP BID Pantoprazole Sodium (Pantoprazole Sodium), 40 MG PO DAILY, (Reported) Pregabalin (Lyrica), 100 MG PO BID, (Reported) Sennosides (Senna), 8.6 MG PO QHS, (Reported) Solifenacin Succinate (Vesicare), 5 MG PO DAILY, (Reported) Sucralfate (Carafate), 10 ML PO ACHS, (Reported) Torsemide (Torsemide), 40 MG PO BID, (Reported) Scheduled PRN Diazepam (Diazepam), 1 MG PO BID PRN for ANXIETY, (Reported) Metoclopramide HCl (Metoclopramide HCl), 10 MG PO Q6H PRN for NAUSEA OR VOMITI NG, (Reported) Polyethylene Glycol 3350 (Miralax), 17 GM PO DAILY PRN for CONSTIPATION, (Reported) Polyvinyl Alcohol (Polyvinyl Alcohol Eye Drops), 2 DROP OU TID PRN for DRY EYES, (Reported) Discontinued Medications Magnesium Oxide (Magnesium Oxide), 400 MG PO BID, (Reported) Potassium Chloride (Potassium Chloride), 40 MEQ PO DAILY, (Reported) Allergies Coded Allergies: oxybutynin (Verified Allergy, Mild, rash, 01/16/21) Objective Physical Examination Psych Exam: Positive: Oriented x 3 Kasey COREA HOSE HANDLER Feb 20, 2021 20:24
[2021-02-21] MEDS: LEVOTHYROXINE 50MCG TABLET (0.05MG) PO SCH (05:25)
[2021-02-21] MEDS: SODIUM CHLORIDE 0.9% INJ 10 ML SYR IV SCH ×2 (05:25→17:09)
[2021-02-21] MEDS: SODIUM CHLORIDE 0.9% INJ 10 ML SYR IV PRN (05:26)
[2021-02-21 06:00] VITALS: BP 102/52
[2021-02-21 06:39] LABS: HEMATOCRIT 26.7 % (36.0-47.0); HEMOGLOBIN 8.3 g/dl (12.0-15.5); MEAN CORPUSCULAR HEMOGLOBIN 26.3 pg (27.0-33.0); MEAN CORPUSCULAR HGB CONC 31.1 g/dl (32.0-36.5); MEAN CORPUSCULAR VOLUME 84.5 fl (80.0-96.0); PLATELET COUNT, AUTOMATED 541 10^3/uL (150-450); RED BLOOD COUNT 3.16 10^6/uL (4.00-5.40); WHITE BLOOD COUNT 12.3 10^3/uL (4.0-10.0)
[2021-02-21 07:03] LABS: BLOOD UREA NITROGEN 14 MG/DL (7-18); CALCIUM LEVEL 7.8 MG/DL (8.8-10.2); CARBON DIOXIDE LEVEL 31 MEQ/L (21-32); CHLORIDE LEVEL 98 MEQ/L (98-107); CREATININE FOR GFR 0.36 MG/DL (0.55-1.30); GLOMERULAR FILTRATION RATE > 60.0 (>45); GLUCOSE, FASTING 131 MG/DL (70-100); MAGNESIUM LEVEL 1.8 MG/DL (1.8-2.4); POTASSIUM SERUM 4.2 MEQ/L (3.5-5.1); SODIUM LEVEL 137 MEQ/L (136-145)
[2021-02-21] MEDS: HumaLOG INSULIN (NovoLOG) PER UNIT SC SCH ×4 (07:30→21:00)
[2021-02-21] MEDS: ENOXAPARIN 40MG/0.4ML SYRINGE (J1650 PER 10MG) SC SCH (08:31)
[2021-02-21] MEDS: TORSEMIDE 20 MG TAB PO SCH (08:32)
[2021-02-21] MEDS: ASPIRIN 81MG ENTERIC TABLET PO SCH (08:32)
[2021-02-21] MEDS: MAGNESIUM OXIDE 400MG TAB (MAG-OX) PO SCH ×2 (08:32→21:31)
[2021-02-21] MEDS: PREGABALIN 100 MG CAP (LYRICA) PO SCH ×2 (08:32→21:31)
[2021-02-21] MEDS: SUCRALFATE SUSP 1GM/10ML UD PO SCH ×4 (08:32→21:31)
[2021-02-21] MEDS: BUPRENORPHINE/NALOXONE 2-0.5MG SUBLINGUAL TABLET(SUBOXONE) SL SCH ×2 (08:33→21:31)
[2021-02-21] MEDS: SOLIFENACIN 5 MG TAB PO SCH (08:33)
[2021-02-21] MEDS: PANTOPRAZOLE 40MG TAB (PROTONIX) PO SCH (08:33)
[2021-02-21] MEDS: FOLIC ACID 1 MG TAB PO SCH (08:33)
[2021-02-21] MEDS: BACLOFEN 10 MG TAB PO SCH ×3 (08:34→21:31)
[2021-02-21] MEDS: DOCUSATE SODIUM 100MG CAPSULE PO SCH ×2 (08:34→21:31)
[2021-02-21] MEDS: LACTULOSE 20 GM/30 ML SYRUP UD PO SCH (08:34)
[2021-02-21] MEDS: CYANOCOBALAMIN 250 MCG TABLET PO SCH (08:34)
[2021-02-21] MEDS: NYSTATIN OINTMENT 15 GM TOP SCH ×2 (08:35→21:32)
[2021-02-21] MEDS: NYSTATIN 100,000 UNITS/GM TOPICAL PWD 15 GM TOP SCH (08:36)
[2021-02-21] MEDS: DULoxetine 30MG CAPSULE (CYMBALTA) PO SCH (21:31)
[2021-02-21] MEDS: METOCLOPRAMIDE 10 MG TAB PO PRN (21:31)
[2021-02-21] MEDS: SENNA 8.6 MG TAB (SENOKOT) PO SCH (21:31)
[2021-02-21] MEDS: FERROUS GLUCONATE 324 MG TAB PO SCH (21:31)
[2021-02-21] MEDS: NYSTATIN 100,000 UNITS/GM TOPICAL PWD 15 GM TOP PRN (21:32)
[2021-02-21] MEDS: ATORVASTATIN 20 MG TAB PO SCH (21:32)
[2021-02-22 06:00] VITALS: BP 116/72
[2021-02-22] MEDS: LEVOTHYROXINE 50MCG TABLET (0.05MG) PO SCH (06:24)
[2021-02-22] MEDS: SODIUM CHLORIDE 0.9% INJ 10 ML SYR IV SCH ×2 (06:25→17:59)
[2021-02-22] MEDS: HumaLOG INSULIN (NovoLOG) PER UNIT SC SCH ×4 (07:30→21:00)
[2021-02-22] MEDS: LACTULOSE 20 GM/30 ML SYRUP UD PO SCH (09:12)
[2021-02-22] MEDS: CYANOCOBALAMIN 250 MCG TABLET PO SCH (09:13)
[2021-02-22] MEDS: SUCRALFATE SUSP 1GM/10ML UD PO SCH ×4 (09:13→21:36)
[2021-02-22] MEDS: FOLIC ACID 1 MG TAB PO SCH (09:13)
[2021-02-22] MEDS: ASPIRIN 81MG ENTERIC TABLET PO SCH (09:13)
[2021-02-22] MEDS: DOCUSATE SODIUM 100MG CAPSULE PO SCH ×2 (09:13→21:36)
[2021-02-22] MEDS: BACLOFEN 10 MG TAB PO SCH ×3 (09:13→21:37)
[2021-02-22] MEDS: PREGABALIN 100 MG CAP (LYRICA) PO SCH ×2 (09:13→21:37)
[2021-02-22] MEDS: SOLIFENACIN 5 MG TAB PO SCH (09:13)
[2021-02-22] MEDS: TORSEMIDE 20 MG TAB PO SCH (09:13)
[2021-02-22] MEDS: BUPRENORPHINE/NALOXONE 2-0.5MG SUBLINGUAL TABLET(SUBOXONE) SL SCH ×2 (09:13→21:38)
[2021-02-22] MEDS: PANTOPRAZOLE 40MG TAB (PROTONIX) PO SCH (09:14)
[2021-02-22] MEDS: ENOXAPARIN 40MG/0.4ML SYRINGE (J1650 PER 10MG) SC SCH (09:14)
[2021-02-22] MEDS: NYSTATIN 100,000 UNITS/GM TOPICAL PWD 15 GM TOP PRN (09:14)
[2021-02-22] MEDS: NYSTATIN OINTMENT 15 GM TOP SCH ×2 (09:15→21:00)
[2021-02-22] MEDS: MAGNESIUM OXIDE 400MG TAB (MAG-OX) PO SCH ×2 (09:16→21:37)
[2021-02-22 14:00] VITALS: BP 113/69
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
[2021-02-22] MEDS: SENNA 8.6 MG TAB (SENOKOT) PO SCH (21:37)
[2021-02-22] MEDS: ATORVASTATIN 20 MG TAB PO SCH (21:37)
[2021-02-22] MEDS: DULoxetine 30MG CAPSULE (CYMBALTA) PO SCH (21:37)
[2021-02-22] MEDS: FERROUS GLUCONATE 324 MG TAB PO SCH (21:37)
[2021-02-23] MEDS: LEVOTHYROXINE 50MCG TABLET (0.05MG) PO SCH (05:56)
[2021-02-23 06:00] VITALS: BP 128/61
[2021-02-23] MEDS: SUCRALFATE SUSP 1GM/10ML UD PO SCH ×4 (08:46→21:49)
[2021-02-23] MEDS: LACTULOSE 20 GM/30 ML SYRUP UD PO SCH (08:46)
[2021-02-23] MEDS: ENOXAPARIN 40MG/0.4ML SYRINGE (J1650 PER 10MG) SC SCH (08:46)
[2021-02-23] MEDS: HumaLOG INSULIN (NovoLOG) PER UNIT SC SCH ×4 (08:48→21:00)
[2021-02-23] MEDS: SOLIFENACIN 5 MG TAB PO SCH (08:48)
[2021-02-23] MEDS: DOCUSATE SODIUM 100MG CAPSULE PO SCH ×2 (08:49→21:49)
[2021-02-23] MEDS: PREGABALIN 100 MG CAP (LYRICA) PO SCH ×2 (08:49→21:49)
[2021-02-23] MEDS: BUPRENORPHINE/NALOXONE 2-0.5MG SUBLINGUAL TABLET(SUBOXONE) SL SCH ×2 (08:49→21:50)
[2021-02-23] MEDS: TORSEMIDE 20 MG TAB PO SCH (08:49)
[2021-02-23] MEDS: ASPIRIN 81MG ENTERIC TABLET PO SCH (08:49)
[2021-02-23] MEDS: BACLOFEN 10 MG TAB PO SCH ×3 (08:49→21:49)
[2021-02-23] MEDS: NYSTATIN 100,000 UNITS/GM TOPICAL PWD 15 GM TOP PRN (08:50)
[2021-02-23] MEDS: FOLIC ACID 1 MG TAB PO SCH (08:50)
[2021-02-23] MEDS: MAGNESIUM OXIDE 400MG TAB (MAG-OX) PO SCH ×2 (08:50→21:49)
[2021-02-23] MEDS: PANTOPRAZOLE 40MG TAB (PROTONIX) PO SCH (08:50)
[2021-02-23] MEDS: NYSTATIN OINTMENT 15 GM TOP SCH ×2 (08:51→21:00)
[2021-02-23] MEDS: LACTIC ACID 12% LOTION 225 GM BTL TOP SCH (09:00)
[2021-02-23] MEDS: CYANOCOBALAMIN 250 MCG TABLET PO SCH (09:08)
[2021-02-23] MEDS: ATORVASTATIN 20 MG TAB PO SCH (21:49)
[2021-02-23] MEDS: SENNA 8.6 MG TAB (SENOKOT) PO SCH (21:49)
[2021-02-23] MEDS: FERROUS GLUCONATE 324 MG TAB PO SCH (21:49)
[2021-02-23] MEDS: DULoxetine 30MG CAPSULE (CYMBALTA) PO SCH (21:49)
[2021-02-23] MEDS: METOCLOPRAMIDE 10 MG TAB PO PRN (21:50)
[2021-02-24 06:00] VITALS: BP 119/70
[2021-02-24] MEDS: LEVOTHYROXINE 50MCG TABLET (0.05MG) PO SCH (06:23)
[2021-02-24] MEDS: LACTIC ACID 12% LOTION 225 GM BTL TOP SCH (08:53)
[2021-02-24] MEDS: NYSTATIN OINTMENT 15 GM TOP SCH ×2 (08:53→20:27)
[2021-02-24] MEDS: NYSTATIN 100,000 UNITS/GM TOPICAL PWD 15 GM TOP PRN (08:53)
[2021-02-24] MEDS: HumaLOG INSULIN (NovoLOG) PER UNIT SC SCH ×4 (08:54→20:26)
[2021-02-24] MEDS: ENOXAPARIN 40MG/0.4ML SYRINGE (J1650 PER 10MG) SC SCH (08:54)
[2021-02-24] MEDS: SUCRALFATE SUSP 1GM/10ML UD PO SCH ×4 (08:54→20:25)
[2021-02-24] MEDS: LACTULOSE 20 GM/30 ML SYRUP UD PO SCH (08:54)
[2021-02-24] MEDS: SOLIFENACIN 5 MG TAB PO SCH (08:55)
[2021-02-24] MEDS: CYANOCOBALAMIN 250 MCG TABLET PO SCH (08:55)
[2021-02-24] MEDS: BUPRENORPHINE/NALOXONE 2-0.5MG SUBLINGUAL TABLET(SUBOXONE) SL SCH ×2 (08:55→20:26)
[2021-02-24] MEDS: DOCUSATE SODIUM 100MG CAPSULE PO SCH ×2 (08:55→20:25)
[2021-02-24] MEDS: FOLIC ACID 1 MG TAB PO SCH (08:55)
[2021-02-24] MEDS: ASPIRIN 81MG ENTERIC TABLET PO SCH (08:55)
[2021-02-24] MEDS: PANTOPRAZOLE 40MG TAB (PROTONIX) PO SCH (08:55)
[2021-02-24] MEDS: TORSEMIDE 20 MG TAB PO SCH (08:55)
[2021-02-24] MEDS: MAGNESIUM OXIDE 400MG TAB (MAG-OX) PO SCH ×2 (08:56→20:26)
[2021-02-24] MEDS: PREGABALIN 100 MG CAP (LYRICA) PO SCH ×2 (08:56→20:26)
[2021-02-24] MEDS: BACLOFEN 10 MG TAB PO SCH ×3 (08:56→20:26)
[2021-02-24] MEDS: DULoxetine 30MG CAPSULE (CYMBALTA) PO SCH (20:25)
[2021-02-24] MEDS: ATORVASTATIN 20 MG TAB PO SCH (20:26)
[2021-02-24] MEDS: SENNA 8.6 MG TAB (SENOKOT) PO SCH (20:26)
[2021-02-24] MEDS: FERROUS GLUCONATE 324 MG TAB PO SCH (20:26)
[2021-02-24] MEDS: METOCLOPRAMIDE 10 MG TAB PO PRN (20:27)
[2021-02-25 05:10] VITALS: BP 118/66
[2021-02-25] MEDS: LEVOTHYROXINE 50MCG TABLET (0.05MG) PO SCH (05:12)
[2021-02-25 06:46] LABS: HEMATOCRIT 26.7 % (36.0-47.0); HEMOGLOBIN 8.2 g/dl (12.0-15.5); MEAN CORPUSCULAR HEMOGLOBIN 26.2 pg (27.0-33.0); MEAN CORPUSCULAR HGB CONC 30.7 g/dl (32.0-36.5); MEAN CORPUSCULAR VOLUME 85.3 fl (80.0-96.0); PLATELET COUNT, AUTOMATED 571 10^3/uL (150-450); RED BLOOD COUNT 3.13 10^6/uL (4.00-5.40); WHITE BLOOD COUNT 14.3 10^3/uL (4.0-10.0)
[2021-02-25 07:09] LABS: BLOOD UREA NITROGEN 13 MG/DL (7-18); CALCIUM LEVEL 8.3 MG/DL (8.8-10.2); CARBON DIOXIDE LEVEL 32 MEQ/L (21-32); CHLORIDE LEVEL 97 MEQ/L (98-107); CREATININE FOR GFR 0.44 MG/DL (0.55-1.30); GLOMERULAR FILTRATION RATE > 60.0 (>45); GLUCOSE, FASTING 146 MG/DL (70-100); POTASSIUM SERUM 4.5 MEQ/L (3.5-5.1); SODIUM LEVEL 136 MEQ/L (136-145)
[2021-02-25] MEDS: SUCRALFATE SUSP 1GM/10ML UD PO SCH ×4 (07:30→20:38)
[2021-02-25] MEDS: METOCLOPRAMIDE 10 MG TAB PO PRN ×2 (09:14→17:22)
[2021-02-25] MEDS: HumaLOG INSULIN (NovoLOG) PER UNIT SC SCH ×4 (10:53→20:44)
[2021-02-25] MEDS: PANTOPRAZOLE 40MG TAB (PROTONIX) PO SCH (10:54)
[2021-02-25] MEDS: TORSEMIDE 20 MG TAB PO SCH (10:54)
[2021-02-25] MEDS: LACTULOSE 20 GM/30 ML SYRUP UD PO SCH (10:54)
[2021-02-25] MEDS: FOLIC ACID 1 MG TAB PO SCH (10:54)
[2021-02-25] MEDS: ENOXAPARIN 40MG/0.4ML SYRINGE (J1650 PER 10MG) SC SCH (10:54)
[2021-02-25] MEDS: SOLIFENACIN 5 MG TAB PO SCH (10:54)
[2021-02-25] MEDS: DOCUSATE SODIUM 100MG CAPSULE PO SCH ×2 (10:55→20:39)
[2021-02-25] MEDS: CYANOCOBALAMIN 250 MCG TABLET PO SCH (10:55)
[2021-02-25] MEDS: ASPIRIN 81MG ENTERIC TABLET PO SCH (10:55)
[2021-02-25] MEDS: BUPRENORPHINE/NALOXONE 2-0.5MG SUBLINGUAL TABLET(SUBOXONE) SL SCH ×2 (10:55→20:39)
[2021-02-25] MEDS: BACLOFEN 10 MG TAB PO SCH ×3 (10:55→20:39)
[2021-02-25] MEDS: MAGNESIUM OXIDE 400MG TAB (MAG-OX) PO SCH ×2 (10:56→20:39)
[2021-02-25] MEDS: NYSTATIN 100,000 UNITS/GM TOPICAL PWD 15 GM TOP PRN (10:56)
[2021-02-25] MEDS: LACTIC ACID 12% LOTION 225 GM BTL TOP SCH (10:56)
[2021-02-25] MEDS: PREGABALIN 100 MG CAP (LYRICA) PO SCH ×2 (10:56→20:39)
[2021-02-25] MEDS: NYSTATIN OINTMENT 15 GM TOP SCH ×2 (10:57→20:51)
[2021-02-25] MEDS: ONDANSETRON 4 MG ORAL DISINTEGRATING TAB SL PRN (13:34)
[2021-02-25] MEDS: ATORVASTATIN 20 MG TAB PO SCH (20:39)
[2021-02-25] MEDS: DULoxetine 30MG CAPSULE (CYMBALTA) PO SCH (20:39)
[2021-02-25] MEDS: SENNA 8.6 MG TAB (SENOKOT) PO SCH (20:40)
[2021-02-25] MEDS: FERROUS GLUCONATE 324 MG TAB PO SCH (20:40)
[2021-02-26] MEDS: LEVOTHYROXINE 50MCG TABLET (0.05MG) PO SCH (05:31)
[2021-02-26 06:00] VITALS: BP 110/57
[2021-02-26] MEDS: HumaLOG INSULIN (NovoLOG) PER UNIT SC SCH ×4 (07:30→21:00)
[2021-02-26] MEDS: SUCRALFATE SUSP 1GM/10ML UD PO SCH ×4 (08:43→21:55)
[2021-02-26] MEDS: LACTULOSE 20 GM/30 ML SYRUP UD PO SCH (08:44)
[2021-02-26] MEDS: FOLIC ACID 1 MG TAB PO SCH (08:45)
[2021-02-26] MEDS: BACLOFEN 10 MG TAB PO SCH ×3 (08:45→21:55)
[2021-02-26] MEDS: MAGNESIUM OXIDE 400MG TAB (MAG-OX) PO SCH ×2 (08:45→21:55)
[2021-02-26] MEDS: CYANOCOBALAMIN 250 MCG TABLET PO SCH (08:46)
[2021-02-26] MEDS: PANTOPRAZOLE 40MG TAB (PROTONIX) PO SCH (08:46)
[2021-02-26] MEDS: DOCUSATE SODIUM 100MG CAPSULE PO SCH ×2 (08:47→21:55)
[2021-02-26] MEDS: TORSEMIDE 20 MG TAB PO SCH (08:47)
[2021-02-26] MEDS: PREGABALIN 100 MG CAP (LYRICA) PO SCH ×2 (08:47→21:55)
[2021-02-26] MEDS: SOLIFENACIN 5 MG TAB PO SCH (08:47)
[2021-02-26] MEDS: ASPIRIN 81MG ENTERIC TABLET PO SCH (08:47)
[2021-02-26] MEDS: ENOXAPARIN 40MG/0.4ML SYRINGE (J1650 PER 10MG) SC SCH (08:48)
[2021-02-26] MEDS: NYSTATIN 100,000 UNITS/GM TOPICAL PWD 15 GM TOP PRN ×2 (08:49→21:56)
[2021-02-26] MEDS: LACTIC ACID 12% LOTION 225 GM BTL TOP SCH (08:49)
[2021-02-26] MEDS: NYSTATIN OINTMENT 15 GM TOP SCH ×2 (08:50→21:00)
[2021-02-26] MEDS: BUPRENORPHINE/NALOXONE 2-0.5MG SUBLINGUAL TABLET(SUBOXONE) SL SCH ×2 (08:59→21:54)
[2021-02-26] MEDS: ONDANSETRON 4 MG ORAL DISINTEGRATING TAB SL PRN (12:23)
[2021-02-26] MEDS: DULoxetine 30MG CAPSULE (CYMBALTA) PO SCH (21:54)
[2021-02-26] MEDS: ATORVASTATIN 20 MG TAB PO SCH (21:55)
[2021-02-26] MEDS: SENNA 8.6 MG TAB (SENOKOT) PO SCH (21:55)
[2021-02-26] MEDS: FERROUS GLUCONATE 324 MG TAB PO SCH (21:55)
[2021-02-27] MEDS: LEVOTHYROXINE 50MCG TABLET (0.05MG) PO SCH (05:34)
[2021-02-27 06:14] VITALS: BP 126/64
[2021-02-27] MEDS: HumaLOG INSULIN (NovoLOG) PER UNIT SC SCH ×4 (07:30→21:00)
[2021-02-27] MEDS: NYSTATIN OINTMENT 15 GM TOP SCH ×2 (09:00→21:47)
[2021-02-27] MEDS: LACTIC ACID 12% LOTION 225 GM BTL TOP SCH (09:00)
[2021-02-27] MEDS: LACTULOSE 20 GM/30 ML SYRUP UD PO SCH (09:50)
[2021-02-27] MEDS: DOCUSATE SODIUM 100MG CAPSULE PO SCH ×2 (09:50→21:45)
[2021-02-27] MEDS: SUCRALFATE SUSP 1GM/10ML UD PO SCH ×4 (09:50→21:45)
[2021-02-27] MEDS: SOLIFENACIN 5 MG TAB PO SCH (09:50)
[2021-02-27] MEDS: TORSEMIDE 20 MG TAB PO SCH (09:51)
[2021-02-27] MEDS: BACLOFEN 10 MG TAB PO SCH ×3 (09:51→21:46)
[2021-02-27] MEDS: PREGABALIN 100 MG CAP (LYRICA) PO SCH ×2 (09:51→21:45)
[2021-02-27] MEDS: ASPIRIN 81MG ENTERIC TABLET PO SCH (09:51)
[2021-02-27] MEDS: FOLIC ACID 1 MG TAB PO SCH (09:51)
[2021-02-27] MEDS: PANTOPRAZOLE 40MG TAB (PROTONIX) PO SCH (09:51)
[2021-02-27] MEDS: MAGNESIUM OXIDE 400MG TAB (MAG-OX) PO SCH ×2 (09:51→21:46)
[2021-02-27] MEDS: CYANOCOBALAMIN 250 MCG TABLET PO SCH (09:51)
[2021-02-27] MEDS: BUPRENORPHINE/NALOXONE 2-0.5MG SUBLINGUAL TABLET(SUBOXONE) SL SCH ×2 (09:52→21:47)
[2021-02-27] MEDS: ENOXAPARIN 40MG/0.4ML SYRINGE (J1650 PER 10MG) SC SCH (09:52)
[2021-02-27] MEDS: SENNA 8.6 MG TAB (SENOKOT) PO SCH (21:46)
[2021-02-27] MEDS: ATORVASTATIN 20 MG TAB PO SCH (21:46)
[2021-02-27] MEDS: FERROUS GLUCONATE 324 MG TAB PO SCH (21:46)
[2021-02-27] MEDS: DULoxetine 30MG CAPSULE (CYMBALTA) PO SCH (21:47)
[2021-02-27] MEDS: NYSTATIN 100,000 UNITS/GM TOPICAL PWD 15 GM TOP PRN (21:48)
[2021-02-28] MEDS: LEVOTHYROXINE 50MCG TABLET (0.05MG) PO SCH (05:31)
[2021-02-28 06:00] VITALS: BP 102/48
[2021-02-28 06:05] LABS: HEMATOCRIT 23.5 % (36.0-47.0); HEMOGLOBIN 7.2 g/dl (12.0-15.5); MEAN CORPUSCULAR HEMOGLOBIN 25.6 pg (27.0-33.0); MEAN CORPUSCULAR HGB CONC 30.6 g/dl (32.0-36.5); MEAN CORPUSCULAR VOLUME 83.6 fl (80.0-96.0); PLATELET COUNT, AUTOMATED 509 10^3/uL (150-450); RED BLOOD COUNT 2.81 10^6/uL (4.00-5.40); WHITE BLOOD COUNT 15.4 10^3/uL (4.0-10.0)
[2021-02-28 06:42] LABS: BLOOD UREA NITROGEN 13 MG/DL (7-18); CALCIUM LEVEL 7.5 MG/DL (8.8-10.2); CARBON DIOXIDE LEVEL 32 MEQ/L (21-32); CHLORIDE LEVEL 97 MEQ/L (98-107); CREATININE FOR GFR 0.45 MG/DL (0.55-1.30); GLOMERULAR FILTRATION RATE > 60.0 (>45); GLUCOSE, FASTING 149 MG/DL (70-100); PHOSPHORUS LEVEL 4.2 MG/DL (2.5-4.9); POTASSIUM SERUM 4.2 MEQ/L (3.5-5.1); SODIUM LEVEL 135 MEQ/L (136-145)
[2021-02-28] MEDS: ENOXAPARIN 40MG/0.4ML SYRINGE (J1650 PER 10MG) SC SCH (07:50)
[2021-02-28] MEDS: LACTULOSE 20 GM/30 ML SYRUP UD PO SCH (07:50)
[2021-02-28] MEDS: HumaLOG INSULIN (NovoLOG) PER UNIT SC SCH ×4 (07:50→20:54)
[2021-02-28] MEDS: SUCRALFATE SUSP 1GM/10ML UD PO SCH ×4 (07:51→20:54)
[2021-02-28] MEDS: BACLOFEN 10 MG TAB PO SCH ×3 (07:51→20:53)
[2021-02-28] MEDS: SOLIFENACIN 5 MG TAB PO SCH (07:51)
[2021-02-28] MEDS: DOCUSATE SODIUM 100MG CAPSULE PO SCH ×2 (07:52→20:53)
[2021-02-28] MEDS: MAGNESIUM OXIDE 400MG TAB (MAG-OX) PO SCH ×2 (07:52→20:53)
[2021-02-28] MEDS: PANTOPRAZOLE 40MG TAB (PROTONIX) PO SCH (07:53)
[2021-02-28] MEDS: ASPIRIN 81MG ENTERIC TABLET PO SCH (07:53)
[2021-02-28] MEDS: CYANOCOBALAMIN 250 MCG TABLET PO SCH (07:53)
[2021-02-28] MEDS: TORSEMIDE 20 MG TAB PO SCH (07:54)
[2021-02-28] MEDS: FOLIC ACID 1 MG TAB PO SCH (07:54)
[2021-02-28] MEDS: PREGABALIN 100 MG CAP (LYRICA) PO SCH ×2 (07:54→20:53)
[2021-02-28] MEDS: LACTIC ACID 12% LOTION 225 GM BTL TOP SCH (07:56)
[2021-02-28] MEDS: NYSTATIN OINTMENT 15 GM TOP SCH ×2 (07:56→20:54)
[2021-02-28] MEDS: BUPRENORPHINE/NALOXONE 2-0.5MG SUBLINGUAL TABLET(SUBOXONE) SL SCH ×2 (07:56→20:53)
[2021-02-28] MEDS: SENNA 8.6 MG TAB (SENOKOT) PO SCH (20:53)
[2021-02-28] MEDS: ATORVASTATIN 20 MG TAB PO SCH (20:53)
[2021-02-28] MEDS: DULoxetine 30MG CAPSULE (CYMBALTA) PO SCH (20:53)
[2021-02-28] MEDS: FERROUS GLUCONATE 324 MG TAB PO SCH (20:53)
[2021-03-01 06:00] VITALS: BP 108/64
[2021-03-01] MEDS: LEVOTHYROXINE 50MCG TABLET (0.05MG) PO SCH (06:23)
[2021-03-01 06:33] LABS: HEMATOCRIT 25.1 % (36.0-47.0); HEMOGLOBIN 7.7 g/dl (12.0-15.5); MEAN CORPUSCULAR HGB CONC 30.7 g/dl (32.0-36.5); MEAN CORPUSCULAR VOLUME 84.8 fl (80.0-96.0); PLATELET COUNT, AUTOMATED 536 10^3/uL (150-450); RED BLOOD COUNT 2.96 10^6/uL (4.00-5.40)
[2021-03-01 07:02] LABS: BLOOD UREA NITROGEN 12 MG/DL (7-18); CARBON DIOXIDE LEVEL 36 MEQ/L (21-32); CHLORIDE LEVEL 97 MEQ/L (98-107); CREATININE FOR GFR 0.39 MG/DL (0.55-1.30); GLOMERULAR FILTRATION RATE > 60.0 (>45); GLUCOSE, FASTING 134 MG/DL (70-100); MAGNESIUM LEVEL 2.1 MG/DL (1.8-2.4); PHOSPHORUS LEVEL 4.6 MG/DL (2.5-4.9); POTASSIUM SERUM 3.9 MEQ/L (3.5-5.1); SODIUM LEVEL 137 MEQ/L (136-145)
[2021-03-01] MEDS: NYSTATIN OINTMENT 15 GM TOP SCH ×2 (09:00→20:03)
[2021-03-01] MEDS: HumaLOG INSULIN (NovoLOG) PER UNIT SC SCH ×4 (09:46→20:02)
[2021-03-01] MEDS: BUPRENORPHINE/NALOXONE 2-0.5MG SUBLINGUAL TABLET(SUBOXONE) SL SCH ×2 (09:46→20:00)
[2021-03-01] MEDS: DOCUSATE SODIUM 100MG CAPSULE PO SCH ×2 (09:46→20:01)
[2021-03-01] MEDS: FOLIC ACID 1 MG TAB PO SCH (09:46)
[2021-03-01] MEDS: CYANOCOBALAMIN 250 MCG TABLET PO SCH (09:46)
[2021-03-01] MEDS: PANTOPRAZOLE 40MG TAB (PROTONIX) PO SCH (09:47)
[2021-03-01] MEDS: MAGNESIUM OXIDE 400MG TAB (MAG-OX) PO SCH ×2 (09:47→20:01)
[2021-03-01] MEDS: PREGABALIN 100 MG CAP (LYRICA) PO SCH ×2 (09:47→20:01)
[2021-03-01] MEDS: ASPIRIN 81MG ENTERIC TABLET PO SCH (09:47)
[2021-03-01] MEDS: SOLIFENACIN 5 MG TAB PO SCH (09:47)
[2021-03-01] MEDS: TORSEMIDE 20 MG TAB PO SCH (09:48)
[2021-03-01] MEDS: SUCRALFATE SUSP 1GM/10ML UD PO SCH ×4 (09:48→20:01)
[2021-03-01] MEDS: BACLOFEN 10 MG TAB PO SCH ×3 (09:48→20:01)
[2021-03-01] MEDS: ENOXAPARIN 40MG/0.4ML SYRINGE (J1650 PER 10MG) SC SCH (09:49)
[2021-03-01] MEDS: LACTULOSE 20 GM/30 ML SYRUP UD PO SCH (09:49)
[2021-03-01] MEDS: LACTIC ACID 12% LOTION 225 GM BTL TOP SCH (09:51)
[2021-03-01] MEDS: DULoxetine 30MG CAPSULE (CYMBALTA) PO SCH (20:00)
[2021-03-01] MEDS: FERROUS GLUCONATE 324 MG TAB PO SCH (20:01)
[2021-03-01] MEDS: SENNA 8.6 MG TAB (SENOKOT) PO SCH (20:01)
[2021-03-01] MEDS: NYSTATIN 100,000 UNITS/GM TOPICAL PWD 15 GM TOP PRN (20:02)
[2021-03-01] MEDS: ATORVASTATIN 20 MG TAB PO SCH (20:02)
[2021-03-02 06:00] VITALS: BP 111/67
[2021-03-02] MEDS: LEVOTHYROXINE 50MCG TABLET (0.05MG) PO SCH (06:02)
[2021-03-02] MEDS: LACTULOSE 20 GM/30 ML SYRUP UD PO SCH (07:58)
[2021-03-02] MEDS: BUPRENORPHINE/NALOXONE 2-0.5MG SUBLINGUAL TABLET(SUBOXONE) SL SCH ×2 (07:58→20:10)
[2021-03-02] MEDS: HumaLOG INSULIN (NovoLOG) PER UNIT SC SCH ×4 (07:58→20:10)
[2021-03-02] MEDS: SUCRALFATE SUSP 1GM/10ML UD PO SCH ×4 (07:58→20:08)
[2021-03-02] MEDS: LACTIC ACID 12% LOTION 225 GM BTL TOP SCH (07:59)
[2021-03-02] MEDS: ENOXAPARIN 40MG/0.4ML SYRINGE (J1650 PER 10MG) SC SCH (07:59)
[2021-03-02] MEDS: NYSTATIN 100,000 UNITS/GM TOPICAL PWD 15 GM TOP PRN (07:59)
[2021-03-02] MEDS: DOCUSATE SODIUM 100MG CAPSULE PO SCH ×2 (08:00→20:10)
[2021-03-02] MEDS: TORSEMIDE 20 MG TAB PO SCH (08:00)
[2021-03-02] MEDS: CYANOCOBALAMIN 250 MCG TABLET PO SCH (08:00)
[2021-03-02] MEDS: PANTOPRAZOLE 40MG TAB (PROTONIX) PO SCH (08:00)
[2021-03-02] MEDS: ASPIRIN 81MG ENTERIC TABLET PO SCH (08:00)
[2021-03-02] MEDS: MAGNESIUM OXIDE 400MG TAB (MAG-OX) PO SCH ×2 (08:00→20:08)
[2021-03-02] MEDS: FOLIC ACID 1 MG TAB PO SCH (08:00)
[2021-03-02] MEDS: NYSTATIN OINTMENT 15 GM TOP SCH ×2 (08:00→20:11)
[2021-03-02] MEDS: SOLIFENACIN 5 MG TAB PO SCH (08:00)
[2021-03-02] MEDS: BACLOFEN 10 MG TAB PO SCH ×3 (08:00→20:10)
[2021-03-02] MEDS: PREGABALIN 100 MG CAP (LYRICA) PO SCH ×2 (08:00→20:08)
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
[2021-03-02] MEDS: DULoxetine 30MG CAPSULE (CYMBALTA) PO SCH (20:08)
[2021-03-02] MEDS: ATORVASTATIN 20 MG TAB PO SCH (20:09)
[2021-03-02] MEDS: SENNA 8.6 MG TAB (SENOKOT) PO SCH (20:10)
[2021-03-02] MEDS: FERROUS GLUCONATE 324 MG TAB PO SCH (20:10)
[2021-03-03 06:00] VITALS: BP 119/72
[2021-03-03] MEDS: LEVOTHYROXINE 50MCG TABLET (0.05MG) PO SCH (06:17)
[2021-03-03] MEDS: HumaLOG INSULIN (NovoLOG) PER UNIT SC SCH ×4 (07:30→20:58)
[2021-03-03 08:13] LABS: HEMATOCRIT 24.7 % (36.0-47.0); HEMOGLOBIN 7.4 g/dl (12.0-15.5); MEAN CORPUSCULAR HEMOGLOBIN 25.5 pg (27.0-33.0); MEAN CORPUSCULAR VOLUME 85.2 fl (80.0-96.0); PLATELET COUNT, AUTOMATED 584 10^3/uL (150-450); WHITE BLOOD COUNT 14.8 10^3/uL (4.0-10.0)
[2021-03-03 08:31] LABS: BLOOD UREA NITROGEN 12 MG/DL (7-18); CARBON DIOXIDE LEVEL 36 MEQ/L (21-32); CHLORIDE LEVEL 98 MEQ/L (98-107); CREATININE FOR GFR 0.32 MG/DL (0.55-1.30); GLOMERULAR FILTRATION RATE > 60.0 (>45); GLUCOSE, FASTING 124 MG/DL (70-100); POTASSIUM SERUM 4.4 MEQ/L (3.5-5.1); SODIUM LEVEL 138 MEQ/L (136-145)
[2021-03-03] MEDS: SUCRALFATE SUSP 1GM/10ML UD PO SCH ×4 (08:39→20:11)
[2021-03-03] MEDS: NYSTATIN 100,000 UNITS/GM TOPICAL PWD 15 GM TOP PRN (09:37)
[2021-03-03] MEDS: ENOXAPARIN 40MG/0.4ML SYRINGE (J1650 PER 10MG) SC SCH (09:37)
[2021-03-03] MEDS: LACTULOSE 20 GM/30 ML SYRUP UD PO SCH (09:37)
[2021-03-03] MEDS: MAGNESIUM OXIDE 400MG TAB (MAG-OX) PO SCH ×2 (09:38→20:13)
[2021-03-03] MEDS: PREGABALIN 100 MG CAP (LYRICA) PO SCH ×2 (09:38→20:13)
[2021-03-03] MEDS: LACTIC ACID 12% LOTION 225 GM BTL TOP SCH (09:38)
[2021-03-03] MEDS: ASPIRIN 81MG ENTERIC TABLET PO SCH (09:38)
[2021-03-03] MEDS: PANTOPRAZOLE 40MG TAB (PROTONIX) PO SCH (09:38)
[2021-03-03] MEDS: FOLIC ACID 1 MG TAB PO SCH (09:38)
[2021-03-03] MEDS: TORSEMIDE 20 MG TAB PO SCH (09:38)
[2021-03-03] MEDS: DOCUSATE SODIUM 100MG CAPSULE PO SCH ×2 (09:38→20:11)
[2021-03-03] MEDS: BACLOFEN 10 MG TAB PO SCH ×3 (09:40→20:12)
[2021-03-03] MEDS: BUPRENORPHINE/NALOXONE 2-0.5MG SUBLINGUAL TABLET(SUBOXONE) SL SCH ×2 (09:40→20:13)
[2021-03-03] MEDS: SOLIFENACIN 5 MG TAB PO SCH (09:40)
[2021-03-03] MEDS: CYANOCOBALAMIN 250 MCG TABLET PO SCH (09:40)
[2021-03-03] MEDS: NYSTATIN OINTMENT 15 GM TOP SCH ×2 (09:40→20:13)
[2021-03-03] MEDS: FERROUS GLUCONATE 324 MG TAB PO SCH (20:11)
[2021-03-03] MEDS: DULoxetine 30MG CAPSULE (CYMBALTA) PO SCH (20:11)
[2021-03-03] MEDS: ATORVASTATIN 20 MG TAB PO SCH (20:12)
[2021-03-03] MEDS: SENNA 8.6 MG TAB (SENOKOT) PO SCH (20:13)
[2021-03-04] MEDS: LEVOTHYROXINE 50MCG TABLET (0.05MG) PO SCH (05:30)
[2021-03-04 06:00] VITALS: BP 104/60
[2021-03-04] MEDS: HumaLOG INSULIN (NovoLOG) PER UNIT SC SCH ×4 (07:30→20:51)
[2021-03-04] MEDS: SUCRALFATE SUSP 1GM/10ML UD PO SCH ×4 (10:18→21:06)
[2021-03-04] MEDS: LACTULOSE 20 GM/30 ML SYRUP UD PO SCH (10:18)
[2021-03-04] MEDS: SOLIFENACIN 5 MG TAB PO SCH (10:19)
[2021-03-04] MEDS: ENOXAPARIN 40MG/0.4ML SYRINGE (J1650 PER 10MG) SC SCH (10:19)
[2021-03-04] MEDS: BACLOFEN 10 MG TAB PO SCH ×3 (10:19→21:05)
[2021-03-04] MEDS: DOCUSATE SODIUM 100MG CAPSULE PO SCH ×2 (10:19→21:05)
[2021-03-04] MEDS: BUPRENORPHINE/NALOXONE 2-0.5MG SUBLINGUAL TABLET(SUBOXONE) SL SCH ×2 (10:19→21:05)
[2021-03-04] MEDS: TORSEMIDE 20 MG TAB PO SCH (10:20)
[2021-03-04] MEDS: PANTOPRAZOLE 40MG TAB (PROTONIX) PO SCH (10:20)
[2021-03-04] MEDS: ASPIRIN 81MG ENTERIC TABLET PO SCH (10:20)
[2021-03-04] MEDS: PREGABALIN 100 MG CAP (LYRICA) PO SCH ×2 (10:20→21:04)
[2021-03-04] MEDS: CYANOCOBALAMIN 250 MCG TABLET PO SCH (10:20)
[2021-03-04] MEDS: MAGNESIUM OXIDE 400MG TAB (MAG-OX) PO SCH ×2 (10:20→21:05)
[2021-03-04] MEDS: FOLIC ACID 1 MG TAB PO SCH (10:20)
[2021-03-04] MEDS: NYSTATIN OINTMENT 15 GM TOP SCH ×2 (10:21→21:07)
[2021-03-04] MEDS: LACTIC ACID 12% LOTION 225 GM BTL TOP SCH (10:21)
[2021-03-04] MEDS: NYSTATIN 100,000 UNITS/GM TOPICAL PWD 15 GM TOP PRN (10:21)
[2021-03-04] MEDS ORDERED: ACETYLCYSTEINE 20% 4 ML VIAL (200MG/ML) INH ONE (15:00)
[2021-03-04] MEDS ORDERED: ALBUTEROL SULFATE 2.5 MG/0.5 ML INH NEB SOLN NEB ONE (15:00)
[2021-03-04] MEDS: CEFEPIME HCL 2 GM in D5W MINI-BAG PLUS 50 ML IV SCH ×2 (16:29→23:15)
[2021-03-04] MEDS ORDERED: ACETYLCYSTEINE 10% 30 ML VIAL INH SCH (20:00)
[2021-03-04] MEDS ORDERED: ALBUTEROL SULFATE 2.5 MG/0.5 ML INH NEB SOLN NEB SCH (21:00)
[2021-03-04] MEDS: FERROUS GLUCONATE 324 MG TAB PO SCH (21:04)
[2021-03-04] MEDS: SENNA 8.6 MG TAB (SENOKOT) PO SCH (21:04)
[2021-03-04] MEDS: ATORVASTATIN 20 MG TAB PO SCH (21:04)
[2021-03-04] MEDS: DULoxetine 30MG CAPSULE (CYMBALTA) PO SCH (21:06)
[2021-03-04] MEDS: ACETYLCYSTEINE 20% 4 ML VIAL (200MG/ML) INH SCH (21:06)
[2021-03-04] MEDS: ALBUTEROL SULFATE 2.5 MG/0.5 ML INH NEB SOLN NEB SCH (21:06)
[2021-03-05 05:56] VITALS: BP 115/56
[2021-03-05 06:00] LABS: HEMATOCRIT 23.9 % (36.0-47.0); HEMOGLOBIN 7.3 g/dl (12.0-15.5); MEAN CORPUSCULAR HEMOGLOBIN 25.8 pg (27.0-33.0); MEAN CORPUSCULAR HGB CONC 30.5 g/dl (32.0-36.5); MEAN CORPUSCULAR VOLUME 84.5 fl (80.0-96.0); PLATELET COUNT, AUTOMATED 618 10^3/uL (150-450); RED BLOOD COUNT 2.83 10^6/uL (4.00-5.40); WHITE BLOOD COUNT 13.4 10^3/uL (4.0-10.0)
[2021-03-05] MEDS: LEVOTHYROXINE 50MCG TABLET (0.05MG) PO SCH (06:06)
[2021-03-05] MEDS: CEFEPIME HCL 2 GM in D5W MINI-BAG PLUS 50 ML IV SCH ×3 (06:06→23:36)
[2021-03-05 06:22] LABS: BLOOD UREA NITROGEN 11 MG/DL (7-18); CALCIUM LEVEL 8.1 MG/DL (8.8-10.2); CARBON DIOXIDE LEVEL 34 MEQ/L (21-32); CHLORIDE LEVEL 99 MEQ/L (98-107); CREATININE FOR GFR 0.32 MG/DL (0.55-1.30); GLOMERULAR FILTRATION RATE > 60.0 (>45); GLUCOSE, FASTING 108 MG/DL (70-100); MAGNESIUM LEVEL 2.2 MG/DL (1.8-2.4); PHOSPHORUS LEVEL 4.9 MG/DL (2.5-4.9); POTASSIUM SERUM 4.4 MEQ/L (3.5-5.1); SODIUM LEVEL 138 MEQ/L (136-145)
[2021-03-05] MEDS: ACETYLCYSTEINE 20% 4 ML VIAL (200MG/ML) INH SCH ×2 (07:17→21:42)
[2021-03-05] MEDS: ALBUTEROL SULFATE 2.5 MG/0.5 ML INH NEB SOLN NEB SCH ×2 (07:17→21:42)
[2021-03-05] MEDS: HumaLOG INSULIN (NovoLOG) PER UNIT SC SCH ×4 (07:30→21:00)
[2021-03-05] MEDS: LACTIC ACID 12% LOTION 225 GM BTL TOP SCH (09:08)
[2021-03-05] MEDS: SUCRALFATE SUSP 1GM/10ML UD PO SCH ×4 (09:08→21:42)
[2021-03-05] MEDS: LACTULOSE 20 GM/30 ML SYRUP UD PO SCH (09:08)
[2021-03-05] MEDS: NYSTATIN 100,000 UNITS/GM TOPICAL PWD 15 GM TOP PRN (09:09)
[2021-03-05] MEDS: ENOXAPARIN 40MG/0.4ML SYRINGE (J1650 PER 10MG) SC SCH (09:09)
[2021-03-05] MEDS: FOLIC ACID 1 MG TAB PO SCH (09:09)
[2021-03-05] MEDS: NYSTATIN OINTMENT 15 GM TOP SCH ×2 (09:09→21:44)
[2021-03-05] MEDS: TORSEMIDE 20 MG TAB PO SCH (09:09)
[2021-03-05] MEDS: PREGABALIN 100 MG CAP (LYRICA) PO SCH ×2 (09:10→21:43)
[2021-03-05] MEDS: SOLIFENACIN 5 MG TAB PO SCH (09:10)
[2021-03-05] MEDS: BACLOFEN 10 MG TAB PO SCH ×3 (09:10→21:43)
[2021-03-05] MEDS: ASPIRIN 81MG ENTERIC TABLET PO SCH (09:10)
[2021-03-05] MEDS: CYANOCOBALAMIN 250 MCG TABLET PO SCH (09:10)
[2021-03-05] MEDS: PANTOPRAZOLE 40MG TAB (PROTONIX) PO SCH (09:10)
[2021-03-05] MEDS: DOCUSATE SODIUM 100MG CAPSULE PO SCH ×2 (09:10→21:42)
[2021-03-05] MEDS: BUPRENORPHINE/NALOXONE 2-0.5MG SUBLINGUAL TABLET(SUBOXONE) SL SCH ×2 (09:10→21:43)
[2021-03-05] MEDS: MAGNESIUM OXIDE 400MG TAB (MAG-OX) PO SCH ×2 (09:10→21:43)
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
[2021-03-05 20:24] VITALS: BP 133/83
[2021-03-05] MEDS: SENNA 8.6 MG TAB (SENOKOT) PO SCH (21:42)
[2021-03-05] MEDS: DULoxetine 30MG CAPSULE (CYMBALTA) PO SCH (21:42)
[2021-03-05] MEDS: ATORVASTATIN 20 MG TAB PO SCH (21:42)
[2021-03-05] MEDS: FERROUS GLUCONATE 324 MG TAB PO SCH (21:43)
[2021-03-06] MEDS: LEVOTHYROXINE 50MCG TABLET (0.05MG) PO SCH (06:11)
[2021-03-06] MEDS: CEFEPIME HCL 2 GM in D5W MINI-BAG PLUS 50 ML IV SCH ×3 (06:12→22:24)
[2021-03-06 06:19] VITALS: BP 127/73
[2021-03-06] MEDS: SUCRALFATE SUSP 1GM/10ML UD PO SCH ×4 (07:30→22:24)
[2021-03-06] MEDS: HumaLOG INSULIN (NovoLOG) PER UNIT SC SCH ×4 (07:30→21:00)
[2021-03-06] MEDS: ACETYLCYSTEINE 20% 4 ML VIAL (200MG/ML) INH SCH ×2 (08:00→21:44)
[2021-03-06] MEDS: ALBUTEROL SULFATE 2.5 MG/0.5 ML INH NEB SOLN NEB SCH ×2 (08:07→21:44)
[2021-03-06] MEDS: TORSEMIDE 20 MG TAB PO SCH (08:44)
[2021-03-06] MEDS: ASPIRIN 81MG ENTERIC TABLET PO SCH (08:44)
[2021-03-06] MEDS: DOCUSATE SODIUM 100MG CAPSULE PO SCH ×2 (08:44→22:27)
[2021-03-06] MEDS: PANTOPRAZOLE 40MG TAB (PROTONIX) PO SCH (08:44)
[2021-03-06] MEDS: MIRALAX *UNIT DOSE* 17GM PACKET PO PRN (08:44)
[2021-03-06] MEDS: LACTULOSE 20 GM/30 ML SYRUP UD PO SCH (08:44)
[2021-03-06] MEDS: BACLOFEN 10 MG TAB PO SCH ×3 (08:45→22:25)
[2021-03-06] MEDS: BUPRENORPHINE/NALOXONE 2-0.5MG SUBLINGUAL TABLET(SUBOXONE) SL SCH ×2 (08:45→22:24)
[2021-03-06] MEDS: MAGNESIUM OXIDE 400MG TAB (MAG-OX) PO SCH ×2 (08:45→22:25)
[2021-03-06] MEDS: PREGABALIN 100 MG CAP (LYRICA) PO SCH ×2 (08:45→22:25)
[2021-03-06] MEDS: FOLIC ACID 1 MG TAB PO SCH (08:45)
[2021-03-06] MEDS: ENOXAPARIN 40MG/0.4ML SYRINGE (J1650 PER 10MG) SC SCH (08:49)
[2021-03-06] MEDS: LACTIC ACID 12% LOTION 225 GM BTL TOP SCH (08:49)
[2021-03-06] MEDS: CYANOCOBALAMIN 250 MCG TABLET PO SCH (08:51)
[2021-03-06] MEDS: SOLIFENACIN 5 MG TAB PO SCH (08:51)
[2021-03-06] MEDS: NYSTATIN OINTMENT 15 GM TOP SCH ×2 (08:52→22:26)
[2021-03-06 10:21] LABS: HEMATOCRIT 26.3 % (36.0-47.0); HEMOGLOBIN 7.9 g/dl (12.0-15.5); MEAN CORPUSCULAR HEMOGLOBIN 25.6 pg (27.0-33.0); MEAN CORPUSCULAR VOLUME 85.4 fl (80.0-96.0); PLATELET COUNT, AUTOMATED 607 10^3/uL (150-450); RED BLOOD COUNT 3.08 10^6/uL (4.00-5.40); WHITE BLOOD COUNT 14.6 10^3/uL (4.0-10.0)
[2021-03-06 10:49] LABS: BLOOD UREA NITROGEN 12 MG/DL (7-18); CALCIUM LEVEL 8.6 MG/DL (8.8-10.2); CARBON DIOXIDE LEVEL 33 MEQ/L (21-32); CHLORIDE LEVEL 98 MEQ/L (98-107); CREATININE FOR GFR 0.42 MG/DL (0.55-1.30); GLOMERULAR FILTRATION RATE > 60.0 (>45); GLUCOSE, FASTING 160 MG/DL (70-100); POTASSIUM SERUM 4.5 MEQ/L (3.5-5.1); SODIUM LEVEL 136 MEQ/L (136-145)
[2021-03-06] MEDS: DULoxetine 30MG CAPSULE (CYMBALTA) PO SCH (22:24)
[2021-03-06] MEDS: FERROUS GLUCONATE 324 MG TAB PO SCH (22:25)
[2021-03-06] MEDS: SENNA 8.6 MG TAB (SENOKOT) PO SCH (22:25)
[2021-03-06] MEDS: ATORVASTATIN 20 MG TAB PO SCH (22:25)
[2021-03-06] MEDS: NYSTATIN 100,000 UNITS/GM TOPICAL PWD 15 GM TOP PRN (22:26)
[2021-03-07 06:00] VITALS: BP 126/78
[2021-03-07] MEDS: CEFEPIME HCL 2 GM in D5W MINI-BAG PLUS 50 ML IV SCH (06:18)
[2021-03-07] MEDS: LEVOTHYROXINE 50MCG TABLET (0.05MG) PO SCH (06:18)
[2021-03-07] MEDS: ALBUTEROL SULFATE 2.5 MG/0.5 ML INH NEB SOLN NEB SCH ×2 (07:35→19:40)
[2021-03-07] MEDS: ACETYLCYSTEINE 20% 4 ML VIAL (200MG/ML) INH SCH ×2 (07:35→19:41)
[2021-03-07 08:48] VITALS: BP 127/69
[2021-03-07] MEDS: SOLIFENACIN 5 MG TAB PO SCH (08:49)
[2021-03-07] MEDS: LACTULOSE 20 GM/30 ML SYRUP UD PO SCH (08:49)
[2021-03-07] MEDS: MAGNESIUM OXIDE 400MG TAB (MAG-OX) PO SCH ×2 (08:49→20:31)
[2021-03-07] MEDS: CYANOCOBALAMIN 250 MCG TABLET PO SCH (08:49)
[2021-03-07] MEDS: DOCUSATE SODIUM 100MG CAPSULE PO SCH ×2 (08:49→20:32)
[2021-03-07] MEDS: PREGABALIN 100 MG CAP (LYRICA) PO SCH ×2 (08:50→20:31)
[2021-03-07] MEDS: BUPRENORPHINE/NALOXONE 2-0.5MG SUBLINGUAL TABLET(SUBOXONE) SL SCH ×2 (08:50→20:31)
[2021-03-07] MEDS: ENOXAPARIN 40MG/0.4ML SYRINGE (J1650 PER 10MG) SC SCH (08:50)
[2021-03-07] MEDS: ASPIRIN 81MG ENTERIC TABLET PO SCH (08:50)
[2021-03-07] MEDS: BACLOFEN 10 MG TAB PO SCH ×3 (08:50→20:30)
[2021-03-07] MEDS: PANTOPRAZOLE 40MG TAB (PROTONIX) PO SCH (08:50)
[2021-03-07] MEDS: FOLIC ACID 1 MG TAB PO SCH (08:51)
[2021-03-07] MEDS: SUCRALFATE SUSP 1GM/10ML UD PO SCH ×4 (08:51→20:32)
[2021-03-07] MEDS: HumaLOG INSULIN (NovoLOG) PER UNIT SC SCH ×4 (08:51→20:33)
[2021-03-07] MEDS: TORSEMIDE 20 MG TAB PO SCH (08:51)
[2021-03-07] MEDS: NYSTATIN 100,000 UNITS/GM TOPICAL PWD 15 GM TOP PRN (08:52)
[2021-03-07] MEDS: NYSTATIN OINTMENT 15 GM TOP SCH ×2 (08:56→21:00)
[2021-03-07] MEDS: LACTIC ACID 12% LOTION 225 GM BTL TOP SCH (08:57)
[2021-03-07] MEDS: BACTRIM 160MG/800MG DS TAB PO SCH ×2 (12:07→20:31)
[2021-03-07] MEDS: MIRALAX *UNIT DOSE* 17GM PACKET PO PRN (17:47)
[2021-03-07] MEDS: ATORVASTATIN 20 MG TAB PO SCH (20:31)
[2021-03-07] MEDS: SENNA 8.6 MG TAB (SENOKOT) PO SCH (20:31)
[2021-03-07] MEDS: FERROUS GLUCONATE 324 MG TAB PO SCH (20:32)
[2021-03-07] MEDS: DULoxetine 30MG CAPSULE (CYMBALTA) PO SCH (20:32)
[2021-03-08] MEDS: LEVOTHYROXINE 50MCG TABLET (0.05MG) PO SCH (05:43)
[2021-03-08 06:00] VITALS: BP 102/65
[2021-03-08] MEDS: ACETYLCYSTEINE 20% 4 ML VIAL (200MG/ML) INH SCH (07:22)
[2021-03-08] MEDS: ALBUTEROL SULFATE 2.5 MG/0.5 ML INH NEB SOLN NEB SCH (07:22)
[2021-03-08 08:20] VITALS: BP 106/67
[2021-03-08] MEDS: LACTULOSE 20 GM/30 ML SYRUP UD PO SCH (08:26)
[2021-03-08] MEDS: SUCRALFATE SUSP 1GM/10ML UD PO SCH ×4 (08:26→20:40)
[2021-03-08] MEDS: MIRALAX *UNIT DOSE* 17GM PACKET PO PRN (08:27)
[2021-03-08] MEDS: SOLIFENACIN 5 MG TAB PO SCH (08:28)
[2021-03-08] MEDS: PANTOPRAZOLE 40MG TAB (PROTONIX) PO SCH (08:29)
[2021-03-08] MEDS: FOLIC ACID 1 MG TAB PO SCH (08:29)
[2021-03-08] MEDS: ASPIRIN 81MG ENTERIC TABLET PO SCH (08:29)
[2021-03-08] MEDS: BACTRIM 160MG/800MG DS TAB PO SCH ×2 (08:29→20:39)
[2021-03-08] MEDS: BACLOFEN 10 MG TAB PO SCH ×3 (08:29→20:40)
[2021-03-08] MEDS: PREGABALIN 100 MG CAP (LYRICA) PO SCH ×2 (08:29→20:40)
[2021-03-08] MEDS: MAGNESIUM OXIDE 400MG TAB (MAG-OX) PO SCH ×2 (08:29→20:40)
[2021-03-08] MEDS: CYANOCOBALAMIN 250 MCG TABLET PO SCH (08:29)
[2021-03-08] MEDS: DOCUSATE SODIUM 100MG CAPSULE PO SCH ×2 (08:29→20:40)
[2021-03-08] MEDS: HumaLOG INSULIN (NovoLOG) PER UNIT SC SCH ×4 (08:30→20:32)
[2021-03-08] MEDS: BUPRENORPHINE/NALOXONE 2-0.5MG SUBLINGUAL TABLET(SUBOXONE) SL SCH ×2 (08:30→20:40)
[2021-03-08] MEDS: ENOXAPARIN 40MG/0.4ML SYRINGE (J1650 PER 10MG) SC SCH (08:30)
[2021-03-08] MEDS: LACTIC ACID 12% LOTION 225 GM BTL TOP SCH (08:31)
[2021-03-08] MEDS: NYSTATIN 100,000 UNITS/GM TOPICAL PWD 15 GM TOP PRN (08:31)
[2021-03-08] MEDS: NYSTATIN OINTMENT 15 GM TOP SCH ×2 (08:31→20:41)
[2021-03-08] MEDS: TORSEMIDE 20 MG TAB PO SCH (08:43)
[2021-03-08 09:00] VITALS: O2SAT 99
[2021-03-08 10:56] LABS: HEMATOCRIT 24.5 % (36.0-47.0); HEMOGLOBIN 7.4 g/dl (12.0-15.5); MEAN CORPUSCULAR HEMOGLOBIN 25.8 pg (27.0-33.0); MEAN CORPUSCULAR HGB CONC 30.2 g/dl (32.0-36.5); MEAN CORPUSCULAR VOLUME 85.4 fl (80.0-96.0); PLATELET COUNT, AUTOMATED 539 10^3/uL (150-450); RED BLOOD COUNT 2.87 10^6/uL (4.00-5.40); WHITE BLOOD COUNT 14.3 10^3/uL (4.0-10.0)
[2021-03-08] MEDS ORDERED: LEVALBUTEROL 1.25 MG/0.5 ML CONCENTRATE NEB NEB PRN (11:15)
[2021-03-08] MEDS: LEVALBUTEROL 1.25 MG/0.5 ML CONCENTRATE NEB NEB SCH ×3 (11:32→18:13)
[2021-03-08 11:55] LABS: ALBUMIN 1.4 GM/DL (3.2-5.2); ALT/SGPT 24 U/L (12-78); BILIRUBIN,TOTAL 0.1 MG/DL (0.2-1.0); BLOOD UREA NITROGEN 13 MG/DL (7-18); CALCIUM LEVEL 8.2 MG/DL (8.8-10.2); CARBON DIOXIDE LEVEL 32 MEQ/L (21-32); CHLORIDE LEVEL 98 MEQ/L (98-107); CREATININE FOR GFR 0.41 MG/DL (0.55-1.30); GLOMERULAR FILTRATION RATE > 60.0 (>45); GLUCOSE, FASTING 147 MG/DL (70-100); POTASSIUM SERUM 4.8 MEQ/L (3.5-5.1); SODIUM LEVEL 136 MEQ/L (136-145); TOTAL PROTEIN 6.1 GM/DL (6.4-8.2)
--- NOTE | 2021-03-08 12:13 | REP ---
INDICATION: incr sob, r/o PNA COMPARISON: 01/17/2021 TECHNIQUE: Portable AP view of the chest FINDINGS: Evaluation is limited by underpenetration and poor inspiratory effort. The ill-defined areas of atelectasis/consolidation identified on recent chest CT dated 01/24/2021 are not visible by current portable x-ray. No obvious effusion. No pneumothorax. Tracheostomy and cervicothoracic fixation again noted. Stable cardiomegaly and elements of pulmonary vascular congestion again identified. IMPRESSION: Known ill-defined areas of consolidation and atelectasis on 01/24/2021 CT not visible by current portable x-ray. <Electronically signed by Sarbjit Parnell > 03/08/21 [id number]
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
[2021-03-08 19:50] VITALS: BP 122/64
[2021-03-08] MEDS: DULoxetine 30MG CAPSULE (CYMBALTA) PO SCH (20:40)
[2021-03-08] MEDS: SENNA 8.6 MG TAB (SENOKOT) PO SCH (20:40)
[2021-03-08] MEDS: ATORVASTATIN 20 MG TAB PO SCH (20:40)
[2021-03-08] MEDS: FERROUS GLUCONATE 324 MG TAB PO SCH (20:40)
[2021-03-09] MEDS: LEVALBUTEROL 1.25 MG/0.5 ML CONCENTRATE NEB NEB SCH ×7 (00:18→23:27)
[2021-03-09 06:00] VITALS: BP 119/69
[2021-03-09] MEDS: LEVOTHYROXINE 50MCG TABLET (0.05MG) PO SCH (06:21)
[2021-03-09 09:00] VITALS: O2SAT 99
[2021-03-09] MEDS: ENOXAPARIN 40MG/0.4ML SYRINGE (J1650 PER 10MG) SC SCH (09:50)
[2021-03-09] MEDS: DOCUSATE SODIUM 100MG CAPSULE PO SCH ×2 (09:50→20:47)
[2021-03-09] MEDS: LACTULOSE 20 GM/30 ML SYRUP UD PO SCH (09:50)
[2021-03-09] MEDS: TORSEMIDE 20 MG TAB PO SCH (09:51)
[2021-03-09] MEDS: ASPIRIN 81MG ENTERIC TABLET PO SCH (09:51)
[2021-03-09] MEDS: BACLOFEN 10 MG TAB PO SCH ×3 (09:51→20:48)
[2021-03-09] MEDS: FOLIC ACID 1 MG TAB PO SCH (09:51)
[2021-03-09] MEDS: PREGABALIN 100 MG CAP (LYRICA) PO SCH ×2 (09:51→20:48)
[2021-03-09] MEDS: SOLIFENACIN 5 MG TAB PO SCH (09:51)
[2021-03-09] MEDS: PANTOPRAZOLE 40MG TAB (PROTONIX) PO SCH (09:51)
[2021-03-09] MEDS: MAGNESIUM OXIDE 400MG TAB (MAG-OX) PO SCH ×2 (09:51→20:48)
[2021-03-09] MEDS: CYANOCOBALAMIN 250 MCG TABLET PO SCH (09:51)
[2021-03-09] MEDS: BACTRIM 160MG/800MG DS TAB PO SCH ×2 (09:51→20:48)
[2021-03-09] MEDS: SUCRALFATE SUSP 1GM/10ML UD PO SCH ×4 (09:52→20:47)
[2021-03-09] MEDS: BUPRENORPHINE/NALOXONE 2-0.5MG SUBLINGUAL TABLET(SUBOXONE) SL SCH ×2 (09:52→20:57)
[2021-03-09] MEDS: NYSTATIN OINTMENT 15 GM TOP SCH ×2 (09:53→20:52)
[2021-03-09] MEDS: LACTIC ACID 12% LOTION 225 GM BTL TOP SCH (09:53)
[2021-03-09] MEDS: NYSTATIN 100,000 UNITS/GM TOPICAL PWD 15 GM TOP PRN ×2 (09:53→20:50)
[2021-03-09] MEDS: HumaLOG INSULIN (NovoLOG) PER UNIT SC SCH ×4 (09:54→21:00)
[2021-03-09] MEDS: SENNA 8.6 MG TAB (SENOKOT) PO SCH (20:47)
[2021-03-09] MEDS: ATORVASTATIN 20 MG TAB PO SCH (20:47)
[2021-03-09] MEDS: DULoxetine 30MG CAPSULE (CYMBALTA) PO SCH (20:48)
[2021-03-09] MEDS: FERROUS GLUCONATE 324 MG TAB PO SCH (20:48)
[2021-03-10] MEDS: LEVALBUTEROL 1.25 MG/0.5 ML CONCENTRATE NEB NEB SCH ×6 (03:08→23:14)
[2021-03-10 06:00] VITALS: BP 124/76
[2021-03-10] MEDS: LEVOTHYROXINE 50MCG TABLET (0.05MG) PO SCH (06:18)
[2021-03-10] MEDS: SUCRALFATE SUSP 1GM/10ML UD PO SCH ×4 (07:43→21:17)
[2021-03-10] MEDS: HumaLOG INSULIN (NovoLOG) PER UNIT SC SCH ×4 (07:43→21:00)
[2021-03-10] MEDS: ENOXAPARIN 40MG/0.4ML SYRINGE (J1650 PER 10MG) SC SCH (09:03)
[2021-03-10] MEDS: ASPIRIN 81MG ENTERIC TABLET PO SCH (09:03)
[2021-03-10] MEDS: BACLOFEN 10 MG TAB PO SCH ×3 (09:03→21:16)
[2021-03-10] MEDS: PANTOPRAZOLE 40MG TAB (PROTONIX) PO SCH (09:04)
[2021-03-10] MEDS: PREGABALIN 100 MG CAP (LYRICA) PO SCH ×2 (09:04→21:16)
[2021-03-10] MEDS: LACTULOSE 20 GM/30 ML SYRUP UD PO SCH (09:04)
[2021-03-10] MEDS: CYANOCOBALAMIN 250 MCG TABLET PO SCH (09:04)
[2021-03-10] MEDS: NYSTATIN 100,000 UNITS/GM TOPICAL PWD 15 GM TOP PRN ×2 (09:04→21:19)
[2021-03-10] MEDS: SOLIFENACIN 5 MG TAB PO SCH (09:04)
[2021-03-10] MEDS: FOLIC ACID 1 MG TAB PO SCH (09:04)
[2021-03-10] MEDS: TORSEMIDE 20 MG TAB PO SCH (09:04)
[2021-03-10] MEDS: BUPRENORPHINE/NALOXONE 2-0.5MG SUBLINGUAL TABLET(SUBOXONE) SL SCH ×2 (09:04→21:17)
[2021-03-10] MEDS: MAGNESIUM OXIDE 400MG TAB (MAG-OX) PO SCH ×2 (09:04→21:18)
[2021-03-10] MEDS: DOCUSATE SODIUM 100MG CAPSULE PO SCH ×2 (09:04→21:16)
[2021-03-10 09:05] VITALS: O2SAT 97
[2021-03-10] MEDS: LACTIC ACID 12% LOTION 225 GM BTL TOP SCH (09:05)
[2021-03-10] MEDS: NYSTATIN OINTMENT 15 GM TOP SCH ×2 (09:05→21:20)
[2021-03-10] MEDS: diazePAM 2 MG TAB PO PRN (15:46)
[2021-03-10] MEDS: ACETAMINOPHEN TAB 650MG DOSE (2X325MG) PO PRN (15:46)
[2021-03-10] MEDS: SENNA 8.6 MG TAB (SENOKOT) PO SCH (21:15)
[2021-03-10] MEDS: FERROUS GLUCONATE 324 MG TAB PO SCH (21:16)
[2021-03-10] MEDS: DULoxetine 30MG CAPSULE (CYMBALTA) PO SCH (21:16)
[2021-03-10] MEDS: ATORVASTATIN 20 MG TAB PO SCH (21:17)
[2021-03-11] MEDS ORDERED: hydrOXYzine 25 MG TAB PO PRN (01:15)
[2021-03-11] MEDS: ACETAMINOPHEN TAB 650MG DOSE (2X325MG) PO PRN ×2 (02:23→15:24)
[2021-03-11] MEDS: LEVALBUTEROL 1.25 MG/0.5 ML CONCENTRATE NEB NEB SCH ×5 (03:05→19:29)
[2021-03-11] MEDS ORDERED: FUROSEMIDE 100MG/10ML VIAL (J1940) IV ONE (04:00)
[2021-03-11] MEDS: TORSEMIDE 20 MG TAB PO SCH (04:36)
[2021-03-11] MEDS: LEVOTHYROXINE 50MCG TABLET (0.05MG) PO SCH (05:46)
[2021-03-11 06:00] VITALS: BP 124/65
[2021-03-11] MEDS: LACTULOSE 20 GM/30 ML SYRUP UD PO SCH (08:11)
[2021-03-11] MEDS: HumaLOG INSULIN (NovoLOG) PER UNIT SC SCH ×4 (08:11→20:51)
[2021-03-11] MEDS: SUCRALFATE SUSP 1GM/10ML UD PO SCH ×4 (08:11→20:50)
[2021-03-11] MEDS: DOCUSATE SODIUM 100MG CAPSULE PO SCH ×2 (08:12→20:49)
[2021-03-11] MEDS: FOLIC ACID 1 MG TAB PO SCH (08:12)
[2021-03-11] MEDS: PREGABALIN 100 MG CAP (LYRICA) PO SCH ×2 (08:12→20:50)
[2021-03-11] MEDS: ENOXAPARIN 40MG/0.4ML SYRINGE (J1650 PER 10MG) SC SCH (08:12)
[2021-03-11] MEDS: CYANOCOBALAMIN 250 MCG TABLET PO SCH (08:12)
[2021-03-11] MEDS: PANTOPRAZOLE 40MG TAB (PROTONIX) PO SCH (08:12)
[2021-03-11] MEDS: MAGNESIUM OXIDE 400MG TAB (MAG-OX) PO SCH ×2 (08:12→20:50)
[2021-03-11] MEDS: BACLOFEN 10 MG TAB PO SCH ×3 (08:12→20:50)
[2021-03-11] MEDS: SOLIFENACIN 5 MG TAB PO SCH (08:12)
[2021-03-11] MEDS: ASPIRIN 81MG ENTERIC TABLET PO SCH (08:13)
[2021-03-11] MEDS: BUPRENORPHINE/NALOXONE 2-0.5MG SUBLINGUAL TABLET(SUBOXONE) SL SCH ×2 (08:13→20:49)
[2021-03-11] MEDS: LACTIC ACID 12% LOTION 225 GM BTL TOP SCH (08:13)
[2021-03-11] MEDS: NYSTATIN OINTMENT 15 GM TOP SCH ×2 (08:14→20:52)
[2021-03-11 09:00] VITALS: O2SAT 98
[2021-03-11] MEDS: MIRALAX *UNIT DOSE* 17GM PACKET PO PRN (15:23)
[2021-03-11] MEDS ORDERED: SILVER NITRATE APPLICATOR TOP ONE (17:40)
[2021-03-11 18:35] LABS: HEMATOCRIT 26.9 % (36.0-47.0); HEMOGLOBIN 7.9 g/dl (12.0-15.5); MEAN CORPUSCULAR HEMOGLOBIN 25.6 pg (27.0-33.0); MEAN CORPUSCULAR HGB CONC 29.4 g/dl (32.0-36.5); MEAN CORPUSCULAR VOLUME 87.3 fl (80.0-96.0); PLATELET COUNT, AUTOMATED 604 10^3/uL (150-450); RED BLOOD COUNT 3.08 10^6/uL (4.00-5.40); WHITE BLOOD COUNT 13.5 10^3/uL (4.0-10.0)
[2021-03-11 18:50] LABS: INR 1.06; PROTHROMBIN TIME 14.2 SECONDS (12.7-14.5)
[2021-03-11 18:51] LABS: PARTIAL THROMBOPLASTIN TIME 36.8 SECONDS (25.9-37.0)
--- NOTE | 2021-03-11 20:02 | IPNPDOC ---
Date Seen The patient was seen on 03/11/21. Progress Note SUBJECTIVE: I was made aware by Dr. Lucio and nursing staff that the patient's sacral/ischial decubitus was bleeding profusely today. This was concerning as there was no dressing changes done prior to this. Last testing change before today was 03/10/2021 and no documented bleeding was done at that time. H&H was stable; however, I asked surgery to assess. It was later relayed to me that there was no bleeding seen on assessment by surgical team. Hemodynamics remained stable and the patient remained in ALC status. VS, I&O, 24H, Fishbone Vital Signs/I&O Vital Signs Date Time Temp Pulse Resp B/P (MAP) Pulse Ox O2 Delivery O2 Flow Rate FiO2 03/11/21 09:00 5.0 28 03/11/21 06:00 97.6 95 20 124/65 (84) 99 Trach Collar I&O- Last 24 Hours up to 6 AM 03/11/21 06:00 Intake Total 2605 ml Output Total 1250 ml Balance 1355 ml Laboratory Data 24H LABS Laboratory Tests 2 03/11/21 06:07: Bedside Glucose (Misc Panel) 168H 03/11/21 11:55: Bedside Glucose (Misc Panel) 150H 03/11/21 16:28: Bedside Glucose (Misc Panel) 168H 03/11/21 17:06: Nucleated Red Blood Cells % (auto) 0.0, Prothrombin Time 14.2H, Prothromb Time International Ratio 1.06, Activated Partial Thromboplast Time 36.8 CBC/BMP Laboratory Tests 03/11/21 17:06 Microbiology Microbiology 03/08/21 Blood Culture - Preliminary, Resulted No Growth after 72 hours. All specime... 03/08/21 Blood Culture - Preliminary, Resulted No Growth after 72 hours. All specime... 03/06/21 Gram Stain - Final, Complete 03/06/21 Sputum Culture - Final, Complete Pseudomonas Aeruginosa Staph.aureus Methicillin Resis Yeast Like Organism Estela Walker MD Mar 11, 2021 20:02
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
[2021-03-11] MEDS: ATORVASTATIN 20 MG TAB PO SCH (20:49)
[2021-03-11] MEDS: SENNA 8.6 MG TAB (SENOKOT) PO SCH (20:49)
[2021-03-11] MEDS: NYSTATIN 100,000 UNITS/GM TOPICAL PWD 15 GM TOP PRN (20:49)
[2021-03-11] MEDS: FERROUS GLUCONATE 324 MG TAB PO SCH (20:50)
[2021-03-11] MEDS: DULoxetine 30MG CAPSULE (CYMBALTA) PO SCH (20:50)
[2021-03-12] MEDS: LEVALBUTEROL 1.25 MG/0.5 ML CONCENTRATE NEB NEB SCH ×4 (00:39→12:30)
[2021-03-12] MEDS: LEVOTHYROXINE 50MCG TABLET (0.05MG) PO SCH (05:39)
[2021-03-12 06:00] VITALS: BP 124/72
[2021-03-12] MEDS: NYSTATIN OINTMENT 15 GM TOP SCH (09:00)
[2021-03-12] MEDS: LACTIC ACID 12% LOTION 225 GM BTL TOP SCH (09:00)
[2021-03-12] MEDS: MAGNESIUM OXIDE 400MG TAB (MAG-OX) PO SCH (09:33)
[2021-03-12] MEDS: SUCRALFATE SUSP 1GM/10ML UD PO SCH ×2 (09:33→12:32)
[2021-03-12] MEDS: DOCUSATE SODIUM 100MG CAPSULE PO SCH (09:33)
[2021-03-12] MEDS: LACTULOSE 20 GM/30 ML SYRUP UD PO SCH (09:33)
[2021-03-12] MEDS: FOLIC ACID 1 MG TAB PO SCH (09:33)
[2021-03-12] MEDS: CYANOCOBALAMIN 250 MCG TABLET PO SCH (09:33)
[2021-03-12] MEDS: BUPRENORPHINE/NALOXONE 2-0.5MG SUBLINGUAL TABLET(SUBOXONE) SL SCH (09:34)
[2021-03-12] MEDS: TORSEMIDE 20 MG TAB PO SCH (09:34)
[2021-03-12] MEDS: PANTOPRAZOLE 40MG TAB (PROTONIX) PO SCH (09:34)
[2021-03-12] MEDS: HumaLOG INSULIN (NovoLOG) PER UNIT SC SCH ×2 (09:34→12:33)
[2021-03-12] MEDS: BACLOFEN 10 MG TAB PO SCH (09:34)
[2021-03-12] MEDS: PREGABALIN 100 MG CAP (LYRICA) PO SCH (09:34)
[2021-03-12] MEDS: SOLIFENACIN 5 MG TAB PO SCH (09:34)
[2021-03-12 11:06] VITALS: O2SAT 99
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
--- NOTE | 2021-03-12 14:08 | IPN ---
INFECTIOUS DISEASE PROGRESS NOTE DATE: 03/11/2021 CO-SIGNER: MANOLO QUINONEZ MD SUBJECTIVE: The patient is seen and examined at bedside this morning. She states she is feeling about the same. She continues to complain of intermittent shortness of breath which is worse when she moves around. She has just received a dose of hydroxyzine to help with her anxiety which plays a part in her shortness of breath. She denies chest pain, nausea, vomiting, diarrhea, fevers or chills. OBJECTIVE: Vital signs: Temperature 97.6 degrees Fahrenheit temporal, heart rate 95, respiratory rate 20, blood pressure 125/65, satting 99% with a trach collar, oxygen 5 liters per minute, FiO2 28%. General: The patient is sitting up in bed in no acute distress, appears comfortable. HEENT: Normocephalic, atraumatic. Moist mucous membranes. Lungs are clear to auscultation bilaterally. No wheezing appreciated. Heart: Regular rate and rhythm, normal S1, S2. Abdomen: Obese, soft and nontender. Extremities: 1+ pitting edema in b lower extremities extending at least up to the knees. Skin: There is a large decubitus ulcer in the sacrum which appears mostly clean with granulation tissue with no exposed bone. There is no purulence. There is increased bloody discharge which is a change from the serosanguineous discharge that is typically seen from the ulceration. There is a right ischial ulcer superficial with granulation tissue and appears clean. Left ischial ulcer which is deep to some exposed bone and again appears clean with granulation. LABORATORY DATA: White blood cell count 14.3, hemoglobin 7.4, hematocrit 24.5, platelet count 539. Labs are from 03/08/2021. ASSESSMENT AND PLAN: 1- 65-year-old female with multiple ulcerations secondary to her limited mobility. Stage 4 ulcerations with chronic osteomyelitis appear clean today without concern for purulence and infection. The increased bloody discharge from her sacral ulcer is somewhat concerning and should be evaluated by surgery. 2- Chronic tracheitis with MRSA and pseudomonas no new infiltate on CXR , no increase oxygen requirement so pneumonia unlikely This has been relayed to Dr. Walker who is the hospitalist taking care of Nadege Stiles today. She had previously been on antibiotics and these have been discontinued as there is no sign of any acute bacterial infection. No additional changes are recommended today. MTDD
--- NOTE | 2021-03-12 21:21 | ECGEPIP ---
[facility] Test Date: 2021-03-12 Pat Name: HANNA GARVIN Department: Room: [place] [address] Gender: Female Filler Operator: NELLI : 1955 Requested By: MARCOS Issa Order Number: [id number] Reading MD: John Goldstein Measurements Intervals [place] Rate: 101 P: 13 MD: 152 QRS: -9 QRSD: 86 T: 33 QT: 338 QTc: 438 Interpretive Statements Sinus tachycardia Possible Anterolateral infarct , age undetermined Similar to tracing done 02-16-21 Electronically Signed on 03-12-2021 21:21:32 EDT by John Goldstein
--- NOTE | 2021-03-13 06:53 | IPNPDOC ---
Text Note Date of Service The patient was seen on 02/16/21. NOTE Made aware by the nurse pt had an episode of chest pain. Pt was evaluated and reports having intermittent chest pain since last night but did not tell anyone because she was "afraid" it being something serious. At the time of evaluation at 1200 she denied pain. She endorsed feeling nauseated but this was not new and present prior to this episode. She described the pain as "sharp" and in the substernal region, non-radiating, lasting less than a minute. Vitals: stable cardio: s1/s2, palpation of the chest wall elicits tenderness. pulm: clear to auscultation b/l abd: soft, bs +, non-tender neuro: awake, alert, oriented x 3 A/p Although, pt has reproducible chest pain upon palpation of the cest wall, she reports this is different from the intermittent chest pain she has been experiencing. Obtain stat ekg, and troponin trend. Will need to d/c transport today. Monitor on tele. VS,Fishbone, I+O VS, Fishbone, I+O Laboratory Tests 02/15/21 16:03 Vital Signs Date Time Temp Pulse Resp B/P (MAP) Pulse Ox O2 Delivery O2 Flow Rate FiO2 02/16/21 06:00 97.8 103 18 122/74 (90) 97 Trach Collar 5.0 28 I&O- Last 24 Hours up to 6 AM 02/16/21 05:59 Intake Total 2305 ml Output Total 675 ml Balance 1630 ml TAYLA NEVILLE M.D. Feb 16, 2021 12:24
--- NOTE | 2021-03-13 09:48 | IPN ---
PROGRESS NOTE DATE: 03/08/2021 SUBJECTIVE: Patient was seen and examined this morning at bedside. She states she has been having shortness of breath for about the past 5 days. She states it does feel somewhat worse this morning. She also notes that it gets worse anytime she moves around in bed and especially if she lies flat. She notes some worsening swelling in her legs as well. She states that she is not able to cough much up and does not bring up any blood. She is being suctioned and states that the phlegm being brought up is a whiteish-yellow color. She is status post tracheostomy and is currently receiving oxygen at a flow rate of 5 liters per minute with an FiO2 of 28% over her trach collar. Of note, the patient has been recently treated for pneumonia by the hospitalist team, initially with cefepime, started on 03/04/2021 and discontinued yesterday in exchange for oral Bactrim, which she is currently on. This is day #5 of antibiotics. She has had a sputum culture but has not had a chest x-ray. Sputum culture has grown heavy amounts of pseudomonas and methicillin-resistant Staphylococcus aureus (MRSA) as well as yeast organism. OBJECTIVE: Vital signs: Temperature 98.3 degrees Fahrenheit temporal, heart rate 103, respiratory rate 20, blood pressure 106/67, satting 94% with a trach collar, oxygen 5 liters per minute, FiO2 28%. General: The patient is sitting up in bed in no acute distress, appears comfortable. HEENT: Normocephalic, atraumatic. Moist mucous membranes. Lungs are clear to auscultation bilaterally. No wheezing appreciated. Heart: Regular rate and rhythm, normal S1, S2. Abdomen: Obese, soft and nontender. Extremities: 1+ pitting edema in b lower extremities extending at least up to the knees. Skin: There is a large decubitus ulcer in the sacrum which appears mostly clean with granulation tissue with no exposed bone. There is no purulence. There is increased bloody discharge which is a change from the serosanguineous discharge that is typically seen from the ulceration. There is a right ischial ulcer superficial with granulation tissue and appears clean. Left ischial ulcer which is deep to some exposed bone and again appears clean with granulation. LABORATORY DATA: White blood cell count 14.3, hemoglobin 7.4, hematocrit 24.5, platelet count 539. Procalcitonin 0.29 MICROBIOLOGY: Sputum culture grew Pseudomonas, MRSA, and yeast organism ASSESSMENT AND PLAN: 65-year-old female with shortness of breath, infectious disease asked to evaluated for possible recurrent pneumonia. The patient has chronic tracheitis with MRSA and pseudomonas, as see on the patient's sputum culture. She has recently been treated with antibiotics with 7 days of IV cefepime and was switched to PO doxycycline. The procalcitonin is not significantly elevated to suggested bacterial pneumonia. No chest xray has been obtained to assess for pneumonia. Would recommend CXR today and if negative, discontinuation of antibiotics as she has been appropriately treated for possible pneumonia. Patient also has multiple pressure ulcerations secondary to her limited mobility. Stage 4 ulcerations appear clean today without concern for purulence and infection. Continue with regular dressing changes and off-loading. MTDD
== END 2021-03-12 15:00 | disposition home or self-care (01) | DRG 698 ==
LOC: M ED 11:16 → EDBD 11:16 → M ED INP 11:17 → UNDOADMOB 11:17 → OBSVTOIN 11:17 → INTOOBSV 11:17 → M ED INP 11:18 → M MSPAV 01-25 01:01 → M ED INP 01-25 01:01 → OBSVTOIN 01-25 13:09 → M MSPAV 02-07 13:23
PROVIDERS: ADMIT Family Medicine; ATTEND Internal Medicine
PROC: 02HV33Z Insertion of Infusion Device into Superior Vena Cava, Percutaneous Approach (ICD-10-PCS; principal; 2021-01-29 13:03)
PROC: 30233N1 Transfusion of Nonautologous Red Blood Cells into Peripheral Vein, Percutaneous Approach (ICD-10-PCS; 2021-02-09)
DX: T83.511A Infection and inflammatory reaction due to indwelling urethral catheter, initial encounter (principal); L89.154 Pressure ulcer of sacral region, stage 4; L89.224 Pressure ulcer of left hip, stage 4; L89.213 Pressure ulcer of right hip, stage 3; G82.20 Paraplegia, unspecified; I50.32 Chronic diastolic (congestive) heart failure; E87.2 Acidosis; M86.652 Other chronic osteomyelitis, left thigh; E46 Unspecified protein-calorie malnutrition; Z68.41 Body mass index [BMI] 40.0-44.9, adult; Z66 Do not resuscitate; N31.9 Neuromuscular dysfunction of bladder, unspecified; E11.40 Type 2 diabetes mellitus with diabetic neuropathy, unspecified; E03.9 Hypothyroidism, unspecified; D50.9 Iron deficiency anemia, unspecified; G43.909 Migraine, unspecified, not intractable, without status migrainosus; E78.5 Hyperlipidemia, unspecified; I11.0 Hypertensive heart disease with heart failure; F41.9 Anxiety disorder, unspecified; F32.9 Major depressive disorder, single episode, unspecified; E66.9 Obesity, unspecified; I27.20 Pulmonary hypertension, unspecified; K59.00 Constipation, unspecified; H04.123 Dry eye syndrome of bilateral lacrimal glands; B96.89 Other specified bacterial agents as the cause of diseases classified elsewhere; N32.81 Overactive bladder; L89.620 Pressure ulcer of left heel, unstageable; F11.10 Opioid abuse, uncomplicated; E87.6 Hypokalemia; N32.89 Other specified disorders of bladder; B37.2 Candidiasis of skin and nail; R01.1 Cardiac murmur, unspecified; R33.9 Retention of urine, unspecified; Y84.6 Urinary catheterization as the cause of abnormal reaction of the patient, or of later complication, without mention of misadventure at the time of the procedure; Z20.822 Contact with and (suspected) exposure to COVID-19; Z93.3 Colostomy status; Z93.0 Tracheostomy status; Z79.899 Other long term (current) drug therapy; Z79.82 Long term (current) use of aspirin; Z88.8 Allergy status to other drugs, medicaments and biological substances; Z90.49 Acquired absence of other specified parts of digestive tract; Z86.14 Personal history of Methicillin resistant Staphylococcus aureus infection; Z74.1 Need for assistance with personal care; Z74.01 Bed confinement status; Z98.1 Arthrodesis status

== ENCOUNTER 2021-03-25 09:42 | Inpatient (IN) | payer MEDICARE, OTHER ==
[~2021-03-25] VITALS: Ht 172.7 cm; Wt 123.9 kg
[~2021-03-25 09:42] MED LIST changes: +NYST10OI TOP
--- NOTE | 2021-03-25 10:26 | REP ---
INDICATION: DYSPNEA/COUGH. COMPARISON: 03/08/2021. TECHNIQUE: Single portable AP view of the chest was performed. FINDINGS: Tracheostomy and upper thoracic fusion hardware are again noted. Cardiomegaly is stable. There is some calcification of the thoracic aorta. The mediastinal silhouette is unchanged. There is elevation of the right hemidiaphragm unchanged. There are linear fibro atelectatic changes in each lung base. IMPRESSION: No radiographic evidence of acute infiltrate.Stable chronic findings as discussed above. <Electronically signed by Bishop Hull > 03/25/21 1025
[2021-03-25 10:30] LABS: VENOUS BASE EXCESS 8.3 (-2.0-2.0); VENOUS HCO3 34.5 MEQ/L (23.0-27.0); VENOUS O2 SATURATION 87.6 % (60.0-80.0); VENOUS PARTIAL PRESSURE CO2 57.8 mmHg (38.0-50.0); VENOUS PARTIAL PRESSURE O2 56.3 mmHg (30.0-50.0); VENOUS PH 7.394 UNITS (7.330-7.430); VENOUS STANDARD HCO3 31.9 MEQ/L; VENOUS TOTAL CO2 36.3 MEQ/L (24.0-28.0)
[2021-03-25] MEDS ORDERED: NS 1,000 ML IV SCH (10:35)
[2021-03-25] MEDS ORDERED: ACETAMINOPHEN 500 MG TAB PO ONE (10:35)
[2021-03-25 10:36] LABS: BASO # 0.1 10^3/uL (0.0-0.2); BASO % 0.6 % (0.0-1.0); EOS # 0.8 10^3/uL (0.0-0.5); EOS % 7.9 % (0.0-3.0); HEMOGLOBIN 8.5 g/dl (12.0-15.5); LYMPH # 1.2 10^3/uL (1.5-5.0); LYMPH % 11.9 % (24.0-44.0); MEAN CORPUSCULAR HEMOGLOBIN 25.4 pg (27.0-33.0); MEAN CORPUSCULAR HGB CONC 29.3 g/dl (32.0-36.5); MEAN CORPUSCULAR VOLUME 86.6 fl (80.0-96.0); MONO # 1.1 10^3/uL (0.0-0.8); MONO % 11.6 % (2.0-8.0); NEUTROPHILS # 6.6 10^3/uL (1.5-8.5); NEUTROPHILS % 66.9 % (36.0-66.0); PLATELET COUNT, AUTOMATED 539 10^3/uL (150-450); RED BLOOD COUNT 3.35 10^6/uL (4.00-5.40); WHITE BLOOD COUNT 9.9 10^3/uL (4.0-10.0)
[2021-03-25 11:09] LABS: ALBUMIN 1.6 GM/DL (3.2-5.2); ALT/SGPT 10 U/L (12-78); BILIRUBIN,DIRECT < 0.1 MG/DL (0.0-0.2); BILIRUBIN,TOTAL 0.2 MG/DL (0.2-1.0); BLOOD UREA NITROGEN 11 MG/DL (7-18); CALCIUM LEVEL 8.1 MG/DL (8.8-10.2); CARBON DIOXIDE LEVEL 32 MEQ/L (21-32); CHLORIDE LEVEL 98 MEQ/L (98-107); GLOMERULAR FILTRATION RATE > 60.0 (>45); GLUCOSE, FASTING 165 MG/DL (70-100); NT-PRO BNP 245 PG/ML (<125); POTASSIUM SERUM 4.1 MEQ/L (3.5-5.1); SODIUM LEVEL 138 MEQ/L (136-145); TOTAL PROTEIN 6.4 GM/DL (6.4-8.2)
[2021-03-25 13:19] LABS: INR 1.14
[2021-03-25 13:20] LABS: PARTIAL THROMBOPLASTIN TIME 32.2 SECONDS (25.9-37.0)
[2021-03-25 13:23] LABS: D-DIMER QUANT 1436.82 ng/ml (<500)
[2021-03-25 13:42] LABS: C REACTIVE PROTEIN QUANTITATIV 8.39 MG/DL (0.00-0.30); MAGNESIUM LEVEL 1.7 MG/DL (1.8-2.4)
[2021-03-25] MEDS ORDERED: FURO40TA2 PO (13:47)
[2021-03-25] MEDS ORDERED: HYDR-3363 PO (13:47)
[2021-03-25] MEDS ORDERED: SUBO4MIS SL (13:49)
[2021-03-25] MEDS ORDERED: HOME MED LIST COMPLETE! XX SCH (13:50)
[2021-03-25] MEDS ORDERED: POLYVINYL ALCOHOL OPHTH SOLN 15 ML(LIQUITEARS) OU PRN (13:55)
[2021-03-25] MEDS ORDERED: PILL CUTTER 1 EACH XX PRN (14:05)
[2021-03-25 15:30] VITALS: O2SAT 94
[2021-03-25] MEDS: FOLIC ACID 1 MG TAB PO SCH (16:00)
[2021-03-25] MEDS: ASPIRIN 81MG ENTERIC TABLET PO SCH (16:00)
[2021-03-25] MEDS ORDERED: BACLOFEN 10 MG TAB PO ONE (16:00)
[2021-03-25] MEDS: PANTOPRAZOLE 40MG VIAL (C9113 PER 1) IV SCH (16:02)
[2021-03-25] MEDS: dexameTHASONE 4 MG/ML 1ML VIAL (J1100 PER 1MG) IV SCH (16:02)
[2021-03-25 16:22] VITALS: BP 108/59
[2021-03-25] MEDS: SUCRALFATE SUSP 1GM/10ML UD PO SCH ×2 (17:45→20:20)
[2021-03-25] MEDS: LACTULOSE 20 GM/30 ML SYRUP UD PO SCH (17:45)
[2021-03-25] MEDS: ACETAMINOPHEN TAB 650MG DOSE (2X325MG) PO PRN (17:45)
[2021-03-25] MEDS: BACLOFEN 5MG PER 1/2 TABLET PO SCH ×2 (17:46→20:19)
--- NOTE | 2021-03-25 18:24 | ECGEPIP ---
[facility] - ED Test Date: 2021-03-25 Pat Name: HANNA GARVIN Department: Room: - Gender: Female Supervisor Vacuum Metalizing: DAVIAN : 1955 Requested By: Alisha Lopez Order Number: [id number] Reading MD: Alisha Lopez Measurements Intervals [place] Rate: 123 P: 19 MD: 158 QRS: -8 QRSD: 84 T: 36 QT: 304 QTc: 435 Interpretive Statements Sinus tachycardia Cannot rule out Anterior infarct , age undetermined low voltage NSTTW abnormalities increased rate 03/12/21 Electronically Signed on 03-25-2021 18:24:34 EDT by Alisha Lpoez
[2021-03-25] MEDS ORDERED: MAG SULF 1GM/100ML (MAG RUN) 1 GM in IV 1 EA IV ONE (18:35)
[2021-03-25] MEDS ORDERED: ONDANSETRON 4MG/2ML VIAL IV PRN (18:45)
[2021-03-25] MEDS ORDERED: GLUCAGON INJ 1MG VIAL SC PRN (18:50)
[2021-03-25] MEDS ORDERED: DEXTROSE 50% 50 ML SYRINGE IV PRN (18:50)
[2021-03-25] MEDS ORDERED: GLUCOSE 4GM CHEW TABLET PO PRN (18:50)
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
[2021-03-25 19:56] VITALS: O2SAT 94
[2021-03-25] MEDS: ALBUTEROL SULFATE 2.5 MG/0.5 ML INH NEB SOLN NEB SCH (19:56)
[2021-03-25 19:59] LABS: HEMOGLOBIN A1c 6.2 %
[2021-03-25 20:00] VITALS: BP 103/55
[2021-03-25] MEDS: SENNA 8.6 MG TAB (SENOKOT) PO SCH (20:17)
[2021-03-25] MEDS: NYSTATIN 100,000 UNITS/GM TOPICAL PWD 15 GM TOP SCH (20:17)
[2021-03-25] MEDS: hydrOXYzine 25 MG TAB PO SCH (20:18)
[2021-03-25] MEDS: ATORVASTATIN 20 MG TAB PO SCH (20:18)
[2021-03-25] MEDS: DULoxetine 30MG CAPSULE (CYMBALTA) PO SCH (20:18)
[2021-03-25] MEDS: TORSEMIDE 20 MG TAB PO SCH (20:19)
[2021-03-25] MEDS: DOCUSATE SODIUM 100MG CAPSULE PO SCH (20:19)
[2021-03-25] MEDS: FERROUS GLUCONATE 324 MG TAB PO SCH (20:19)
[2021-03-25] MEDS: BUPRENORPHINE/NALOXONE 2-0.5MG SUBLINGUAL TABLET(SUBOXONE) SL SCH (20:21)
[2021-03-26] VITALS (19 sets, daily range): BP systolic 98–154; BP diastolic 53–68; O2SAT 94
[2021-03-26] MEDS: ALBUTEROL SULFATE 2.5 MG/0.5 ML INH NEB SOLN NEB SCH ×4 (01:00→20:13)
[2021-03-26] MEDS: ACETAMINOPHEN TAB 650MG DOSE (2X325MG) PO PRN (05:43)
[2021-03-26] MEDS: LEVOTHYROXINE 50MCG TABLET (0.05MG) PO SCH (05:43)
[2021-03-26 07:22] LABS: BASO % 0.5 % (0.0-1.0); EOS # 0.1 10^3/uL (0.0-0.5); EOS % 0.9 % (0.0-3.0); HEMATOCRIT 26.1 % (36.0-47.0); HEMOGLOBIN 7.8 g/dl (12.0-15.5); LYMPH # 1.2 10^3/uL (1.5-5.0); MEAN CORPUSCULAR HEMOGLOBIN 25.2 pg (27.0-33.0); MEAN CORPUSCULAR HGB CONC 29.9 g/dl (32.0-36.5); MEAN CORPUSCULAR VOLUME 84.5 fl (80.0-96.0); MONO # 1.1 10^3/uL (0.0-0.8); MONO % 14.5 % (2.0-8.0); NEUTROPHILS % 66.1 % (36.0-66.0); PLATELET COUNT, AUTOMATED 487 10^3/uL (150-450); RED BLOOD COUNT 3.09 10^6/uL (4.00-5.40); WHITE BLOOD COUNT 7.6 10^3/uL (4.0-10.0)
[2021-03-26 07:45] LABS: BLOOD UREA NITROGEN 14 MG/DL (7-18); CALCIUM LEVEL 8.2 MG/DL (8.8-10.2); CARBON DIOXIDE LEVEL 33 MEQ/L (21-32); CHLORIDE LEVEL 98 MEQ/L (98-107); CREATININE FOR GFR 0.53 MG/DL (0.55-1.30); GLOMERULAR FILTRATION RATE > 60.0 (>45); GLUCOSE, FASTING 124 MG/DL (70-100); MAGNESIUM LEVEL 1.9 MG/DL (1.8-2.4); POTASSIUM SERUM 3.5 MEQ/L (3.5-5.1); SODIUM LEVEL 136 MEQ/L (136-145)
[2021-03-26] MEDS: NYSTATIN 100,000 UNITS/GM TOPICAL PWD 15 GM TOP SCH ×2 (09:19→20:41)
[2021-03-26] MEDS: dexameTHASONE 4 MG/ML 1ML VIAL (J1100 PER 1MG) IV SCH (09:20)
[2021-03-26] MEDS: hydrOXYzine 25 MG TAB PO SCH ×3 (09:20→20:40)
[2021-03-26] MEDS: TORSEMIDE 20 MG TAB PO SCH ×2 (09:20→20:39)
[2021-03-26] MEDS: BUPRENORPHINE/NALOXONE 2-0.5MG SUBLINGUAL TABLET(SUBOXONE) SL SCH ×2 (09:20→20:40)
[2021-03-26] MEDS: PANTOPRAZOLE 40MG VIAL (C9113 PER 1) IV SCH (09:20)
[2021-03-26] MEDS: BACLOFEN 5MG PER 1/2 TABLET PO SCH ×3 (09:21→20:40)
[2021-03-26] MEDS: SENNA 8.6 MG TAB (SENOKOT) PO SCH ×2 (09:21→20:39)
[2021-03-26] MEDS: DOCUSATE SODIUM 100MG CAPSULE PO SCH ×2 (09:21→20:40)
[2021-03-26] MEDS: FOLIC ACID 1 MG TAB PO SCH (09:21)
[2021-03-26] MEDS: LACTULOSE 20 GM/30 ML SYRUP UD PO SCH (09:21)
[2021-03-26] MEDS: ASPIRIN 81MG ENTERIC TABLET PO SCH (09:21)
[2021-03-26] MEDS: SUCRALFATE SUSP 1GM/10ML UD PO SCH ×4 (09:21→20:38)
[2021-03-26] MEDS: HumaLOG INSULIN (NovoLOG) PER UNIT SC SCH ×3 (09:22→17:31)
[2021-03-26] MEDS: ENOXAPARIN 40MG/0.4ML SYRINGE (J1650 PER 10MG) SC SCH (09:22)
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
[2021-03-26] MEDS: FERROUS GLUCONATE 324 MG TAB PO SCH (20:40)
[2021-03-26] MEDS: DULoxetine 30MG CAPSULE (CYMBALTA) PO SCH (20:41)
[2021-03-26] MEDS: ATORVASTATIN 20 MG TAB PO SCH (20:41)
[2021-03-27] VITALS (9 sets, daily range): BP systolic 93–125; BP diastolic 51–57; O2SAT 93–97
[2021-03-27] MEDS: ALBUTEROL SULFATE 2.5 MG/0.5 ML INH NEB SOLN NEB SCH ×4 (02:00→18:36)
[2021-03-27] MEDS: ACETAMINOPHEN TAB 650MG DOSE (2X325MG) PO PRN (03:29)
[2021-03-27] MEDS: LEVOTHYROXINE 50MCG TABLET (0.05MG) PO SCH (05:46)
[2021-03-27 06:14] LABS: BASO # 0.1 10^3/uL (0.0-0.2); BASO % 0.4 % (0.0-1.0); EOS # 0.1 10^3/uL (0.0-0.5); EOS % 0.8 % (0.0-3.0); HEMATOCRIT 27.1 % (36.0-47.0); LYMPH # 1.2 10^3/uL (1.5-5.0); LYMPH % 9.8 % (24.0-44.0); MEAN CORPUSCULAR HGB CONC 29.5 g/dl (32.0-36.5); MEAN CORPUSCULAR VOLUME 84.7 fl (80.0-96.0); MONO # 1.1 10^3/uL (0.0-0.8); MONO % 9.3 % (2.0-8.0); NEUTROPHILS # 9.4 10^3/uL (1.5-8.5); NEUTROPHILS % 78.6 % (36.0-66.0); PLATELET COUNT, AUTOMATED 502 10^3/uL (150-450); WHITE BLOOD COUNT 11.9 10^3/uL (4.0-10.0)
[2021-03-27 06:21] LABS: INR 1.07; PROTHROMBIN TIME 14.4 SECONDS (12.7-14.5)
[2021-03-27 06:22] LABS: PARTIAL THROMBOPLASTIN TIME 34.7 SECONDS (25.9-37.0)
[2021-03-27 06:38] LABS: ALBUMIN 1.6 GM/DL (3.2-5.2); ALT/SGPT 12 U/L (12-78); BILIRUBIN,DIRECT < 0.1 MG/DL (0.0-0.2); BILIRUBIN,TOTAL 0.1 MG/DL (0.2-1.0); BLOOD UREA NITROGEN 15 MG/DL (7-18); CALCIUM LEVEL 7.9 MG/DL (8.8-10.2); CARBON DIOXIDE LEVEL 35 MEQ/L (21-32); CHLORIDE LEVEL 96 MEQ/L (98-107); CPK CREATINE PHOSPHOKINASE 10 U/L (26-192); CREATININE FOR GFR 0.58 MG/DL (0.55-1.30); FERRITIN 229 NG/ML (8-252); GLOMERULAR FILTRATION RATE > 60.0 (>45); GLUCOSE, FASTING 114 MG/DL (70-100); LDH LACTATE DEHYDROGENASE 132 U/L (84-246); MAGNESIUM LEVEL 1.8 MG/DL (1.8-2.4); NT-PRO BNP 245 PG/ML (<125); POTASSIUM SERUM 3.3 MEQ/L (3.5-5.1); SODIUM LEVEL 138 MEQ/L (136-145); TOTAL PROTEIN 6.8 GM/DL (6.4-8.2); TROPONIN I < 0.02 NG/ML (< 0.10)
[2021-03-27] MEDS ORDERED: POTASSIUM CHLORIDE 10% LIQ 20 MEQ/15 ML UDC PO ONE (06:55)
[2021-03-27] MEDS: HumaLOG INSULIN (NovoLOG) PER UNIT SC SCH ×4 (07:30→21:00)
[2021-03-27] MEDS: hydrOXYzine 25 MG TAB PO SCH ×3 (10:05→22:09)
[2021-03-27] MEDS: LACTULOSE 20 GM/30 ML SYRUP UD PO SCH (10:05)
[2021-03-27] MEDS: SUCRALFATE SUSP 1GM/10ML UD PO SCH ×4 (10:05→22:09)
[2021-03-27] MEDS: TORSEMIDE 20 MG TAB PO SCH ×2 (10:06→21:00)
[2021-03-27] MEDS: ASPIRIN 81MG ENTERIC TABLET PO SCH (10:06)
[2021-03-27] MEDS: DOCUSATE SODIUM 100MG CAPSULE PO SCH ×2 (10:06→22:09)
[2021-03-27] MEDS: SENNA 8.6 MG TAB (SENOKOT) PO SCH ×2 (10:07→22:09)
[2021-03-27] MEDS: PANTOPRAZOLE 40MG VIAL (C9113 PER 1) IV SCH (10:07)
[2021-03-27] MEDS: BUPRENORPHINE/NALOXONE 2-0.5MG SUBLINGUAL TABLET(SUBOXONE) SL SCH ×2 (10:07→22:09)
[2021-03-27] MEDS: FOLIC ACID 1 MG TAB PO SCH (10:07)
[2021-03-27] MEDS: NYSTATIN 100,000 UNITS/GM TOPICAL PWD 15 GM TOP SCH ×2 (10:08→22:10)
[2021-03-27] MEDS: ENOXAPARIN 40MG/0.4ML SYRINGE (J1650 PER 10MG) SC SCH (10:08)
[2021-03-27] MEDS: dexameTHASONE 4 MG/ML 1ML VIAL (J1100 PER 1MG) IV SCH (10:08)
[2021-03-27] MEDS: BACLOFEN 5MG PER 1/2 TABLET PO SCH ×3 (10:26→22:09)
[2021-03-27] MEDS ORDERED: ONDANSETRON 4MG/2ML VIAL IV ONE (12:15)
[2021-03-27] MEDS ORDERED: GLUCAGON INJ 1MG VIAL SC PRN ×5 (12:30)
[2021-03-27] MEDS ORDERED: GLUCOSE 4GM CHEW TABLET PO PRN ×5 (12:30)
[2021-03-27] MEDS ORDERED: DEXTROSE 50% 50 ML SYRINGE IV PRN ×5 (12:30)
[2021-03-27] MEDS: MIRALAX *UNIT DOSE* 17GM PACKET PO SCH (12:46)
[2021-03-27] MEDS ORDERED: MOM 30ML SUSPENSION UDC PO PRN (16:40)
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
[2021-03-27] MEDS ORDERED: HumaLOG INSULIN (NovoLOG) PER UNIT SC SCH ×9 (17:30→21:00)
[2021-03-27] MEDS: FERROUS GLUCONATE 324 MG TAB PO SCH (22:09)
[2021-03-27] MEDS: ATORVASTATIN 20 MG TAB PO SCH (22:09)
[2021-03-27] MEDS: DULoxetine 30MG CAPSULE (CYMBALTA) PO SCH (22:09)
[2021-03-28] MEDS: ALBUTEROL SULFATE 2.5 MG/0.5 ML INH NEB SOLN NEB SCH ×4 (02:00→20:53)
[2021-03-28 04:00] VITALS: BP 100/56
[2021-03-28] MEDS: LEVOTHYROXINE 50MCG TABLET (0.05MG) PO SCH (06:16)
[2021-03-28] MEDS: ACETAMINOPHEN TAB 650MG DOSE (2X325MG) PO PRN (06:16)
[2021-03-28 06:19] LABS: BASO % 0.3 % (0.0-1.0); EOS % 0.1 % (0.0-3.0); HEMATOCRIT 27.1 % (36.0-47.0); LYMPH % 8.9 % (24.0-44.0); MEAN CORPUSCULAR HEMOGLOBIN 24.9 pg (27.0-33.0); MEAN CORPUSCULAR HGB CONC 29.5 g/dl (32.0-36.5); MEAN CORPUSCULAR VOLUME 84.4 fl (80.0-96.0); MONO # 0.9 10^3/uL (0.0-0.8); MONO % 7.7 % (2.0-8.0); NEUTROPHILS # 9.1 10^3/uL (1.5-8.5); NEUTROPHILS % 81.8 % (36.0-66.0); PLATELET COUNT, AUTOMATED 453 10^3/uL (150-450); RED BLOOD COUNT 3.21 10^6/uL (4.00-5.40); WHITE BLOOD COUNT 11.1 10^3/uL (4.0-10.0)
[2021-03-28 06:44] LABS: BLOOD UREA NITROGEN 14 MG/DL (7-18); CALCIUM LEVEL 8.3 MG/DL (8.8-10.2); CARBON DIOXIDE LEVEL 38 MEQ/L (21-32); CHLORIDE LEVEL 95 MEQ/L (98-107); CREATININE FOR GFR 0.56 MG/DL (0.55-1.30); GLOMERULAR FILTRATION RATE > 60.0 (>45); GLUCOSE, FASTING 114 MG/DL (70-100); MAGNESIUM LEVEL 1.8 MG/DL (1.8-2.4); POTASSIUM SERUM 3.5 MEQ/L (3.5-5.1); SODIUM LEVEL 133 MEQ/L (136-145)
[2021-03-28] MEDS: HumaLOG INSULIN (NovoLOG) PER UNIT SC SCH ×4 (07:30→21:00)
[2021-03-28] MEDS: LACTULOSE 20 GM/30 ML SYRUP UD PO SCH ×2 (08:18→08:32)
[2021-03-28] MEDS: SUCRALFATE SUSP 1GM/10ML UD PO SCH ×4 (08:18→21:14)
[2021-03-28] MEDS: dexameTHASONE 4 MG/ML 1ML VIAL (J1100 PER 1MG) IV SCH (08:19)
[2021-03-28] MEDS: BACLOFEN 5MG PER 1/2 TABLET PO SCH ×3 (08:19→21:18)
[2021-03-28] MEDS: PANTOPRAZOLE 40MG VIAL (C9113 PER 1) IV SCH (08:19)
[2021-03-28] MEDS: FOLIC ACID 1 MG TAB PO SCH (08:19)
[2021-03-28] MEDS: MIRALAX *UNIT DOSE* 17GM PACKET PO SCH ×2 (08:19→08:32)
[2021-03-28] MEDS: ENOXAPARIN 40MG/0.4ML SYRINGE (J1650 PER 10MG) SC SCH (08:19)
[2021-03-28] MEDS: hydrOXYzine 25 MG TAB PO SCH ×3 (08:20→21:26)
[2021-03-28] MEDS: TORSEMIDE 20 MG TAB PO SCH ×3 (08:20→21:26)
[2021-03-28] MEDS: SENNA 8.6 MG TAB (SENOKOT) PO SCH ×2 (08:21→21:18)
[2021-03-28] MEDS: ASPIRIN 81MG ENTERIC TABLET PO SCH (08:21)
[2021-03-28] MEDS: BUPRENORPHINE/NALOXONE 2-0.5MG SUBLINGUAL TABLET(SUBOXONE) SL SCH ×2 (08:21→21:18)
[2021-03-28] MEDS: DOCUSATE SODIUM 100MG CAPSULE PO SCH ×2 (08:21→21:15)
[2021-03-28] MEDS: NYSTATIN 100,000 UNITS/GM TOPICAL PWD 15 GM TOP SCH ×2 (08:22→21:27)
[2021-03-28 09:00] VITALS: O2SAT 94
[2021-03-28 12:00] VITALS: BP 97/50
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
[2021-03-28 20:00] VITALS: BP 108/55
[2021-03-28 21:00] VITALS: O2SAT 94
[2021-03-28] MEDS: FERROUS GLUCONATE 324 MG TAB PO SCH (21:27)
[2021-03-28] MEDS: DULoxetine 30MG CAPSULE (CYMBALTA) PO SCH (21:27)
[2021-03-28] MEDS: ATORVASTATIN 20 MG TAB PO SCH (21:27)
[2021-03-29] MEDS: ALBUTEROL SULFATE 2.5 MG/0.5 ML INH NEB SOLN NEB SCH ×4 (02:00→19:51)
[2021-03-29] MEDS: LEVOTHYROXINE 50MCG TABLET (0.05MG) PO SCH (05:16)
[2021-03-29 05:17] VITALS: BP 112/54
[2021-03-29 06:05] LABS: BASO % 0.3 % (0.0-1.0); HEMATOCRIT 29.2 % (36.0-47.0); HEMOGLOBIN 8.6 g/dl (12.0-15.5); LYMPH # 0.9 10^3/uL (1.5-5.0); LYMPH % 7.4 % (24.0-44.0); MEAN CORPUSCULAR HEMOGLOBIN 24.8 pg (27.0-33.0); MEAN CORPUSCULAR HGB CONC 29.5 g/dl (32.0-36.5); MEAN CORPUSCULAR VOLUME 84.1 fl (80.0-96.0); MONO # 0.9 10^3/uL (0.0-0.8); MONO % 7.4 % (2.0-8.0); NEUTROPHILS # 9.9 10^3/uL (1.5-8.5); NEUTROPHILS % 83.6 % (36.0-66.0); PLATELET COUNT, AUTOMATED 423 10^3/uL (150-450); RED BLOOD COUNT 3.47 10^6/uL (4.00-5.40); WHITE BLOOD COUNT 11.8 10^3/uL (4.0-10.0)
[2021-03-29 06:16] LABS: INR 1.27; PROTHROMBIN TIME 16.3 SECONDS (12.7-14.5)
[2021-03-29 06:36] LABS: ALBUMIN 1.6 GM/DL (3.2-5.2); ALT/SGPT 13 U/L (12-78); BILIRUBIN,DIRECT 0.1 MG/DL (0.0-0.2); BILIRUBIN,TOTAL 0.2 MG/DL (0.2-1.0); BLOOD UREA NITROGEN 13 MG/DL (7-18); CALCIUM LEVEL 8.4 MG/DL (8.8-10.2); CARBON DIOXIDE LEVEL 41 MEQ/L (21-32); CHLORIDE LEVEL 94 MEQ/L (98-107); CPK CREATINE PHOSPHOKINASE 8 U/L (26-192); CREATININE FOR GFR 0.56 MG/DL (0.55-1.30); FERRITIN 345 NG/ML (8-252); GLOMERULAR FILTRATION RATE > 60.0 (>45); GLUCOSE, FASTING 163 MG/DL (70-100); LDH LACTATE DEHYDROGENASE 150 U/L (84-246); MAGNESIUM LEVEL 1.8 MG/DL (1.8-2.4); NT-PRO BNP 309 PG/ML (<125); POTASSIUM SERUM 2.9 MEQ/L (3.5-5.1); SODIUM LEVEL 136 MEQ/L (136-145); TOTAL PROTEIN 6.9 GM/DL (6.4-8.2)
[2021-03-29 06:37] LABS: TROPONIN I < 0.02 NG/ML (< 0.10)
[2021-03-29] MEDS ORDERED: POTASSIUM CHLORIDE 10MEQ SR TABLET PO ONE ×4 (07:15→09:00)
[2021-03-29] MEDS: LACTULOSE 20 GM/30 ML SYRUP UD PO SCH ×2 (09:00→09:50)
[2021-03-29] MEDS ORDERED: REMDESIVIR 200 MG in NS 250 ML IV ONE (09:00)
[2021-03-29] MEDS: ASPIRIN 81MG ENTERIC TABLET PO SCH ×2 (09:00→09:51)
[2021-03-29] MEDS: MIRALAX *UNIT DOSE* 17GM PACKET PO SCH (09:50)
[2021-03-29] MEDS: dexameTHASONE 4 MG/ML 1ML VIAL (J1100 PER 1MG) IV SCH (09:50)
[2021-03-29] MEDS: PANTOPRAZOLE 40MG VIAL (C9113 PER 1) IV SCH (09:50)
[2021-03-29] MEDS: SUCRALFATE SUSP 1GM/10ML UD PO SCH ×4 (09:51→21:00)
[2021-03-29] MEDS: ENOXAPARIN 40MG/0.4ML SYRINGE (J1650 PER 10MG) SC SCH (09:51)
[2021-03-29] MEDS: FOLIC ACID 1 MG TAB PO SCH (09:51)
[2021-03-29] MEDS: HumaLOG INSULIN (NovoLOG) PER UNIT SC SCH ×2 (09:51→11:53)
[2021-03-29] MEDS: BUPRENORPHINE/NALOXONE 2-0.5MG SUBLINGUAL TABLET(SUBOXONE) SL SCH ×2 (09:52→21:00)
[2021-03-29] MEDS: TORSEMIDE 20 MG TAB PO SCH (09:52)
[2021-03-29] MEDS: BACLOFEN 5MG PER 1/2 TABLET PO SCH ×3 (09:52→21:00)
[2021-03-29] MEDS: hydrOXYzine 25 MG TAB PO SCH (09:52)
[2021-03-29] MEDS: DOCUSATE SODIUM 100MG CAPSULE PO SCH ×2 (09:52→21:00)
[2021-03-29] MEDS: NYSTATIN 100,000 UNITS/GM TOPICAL PWD 15 GM TOP SCH ×2 (09:53→22:00)
[2021-03-29] MEDS: SENNA 8.6 MG TAB (SENOKOT) PO SCH ×2 (09:53→21:00)
[2021-03-29] MEDS ORDERED: SODIUM CHLORIDE 0.9% INJ 10 ML SYR IV ONE (11:00)
[2021-03-29] MEDS ORDERED: FLEET ENEMA PR PRN (13:20)
[2021-03-29] MEDS ORDERED: BISACODYL 10 MG SUPP PR PRN (13:20)
[2021-03-29] MEDS ORDERED: LORazepam 1 MG TAB PO PRN (13:20)
[2021-03-29] MEDS ORDERED: HYOSCYAMINE SULFATE 0.125 MG SUBL TABLET PO PRN (13:20)
[2021-03-29] MEDS ORDERED: SCOPOLAMINE 1MG TRANSDERMAL PATCH TOP PRN (13:20)
[2021-03-29] MEDS ORDERED: ATROPINE SULFATE 1% OP SOLN 2 ML BTL SL PRN (13:20)
[2021-03-29] MEDS ORDERED: ONDANSETRON 4 MG ORAL DISINTEGRATING TAB PO PRN (13:20)
[2021-03-29] MEDS ORDERED: MORPHINE 10MG/0.5ML ORAL CONCENTRATE SOLUTION U/D SL PRN (13:20)
[2021-03-29] MEDS ORDERED: ONDANSETRON 4MG/2ML VIAL IV PRN (13:20)
[2021-03-29] MEDS ORDERED: ACETAMINOPHEN 650 MG SUPP PR PRN (13:20)
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
[2021-03-29] MEDS ORDERED: LORazepam 2 MG/ML VIAL As Ordered ONE (17:59)
[2021-03-29] MEDS: LORazepam 2 MG/ML VIAL IV PRN (18:16)
[2021-03-29] MEDS: MORPHINE 2 MG/ML 1ML VIAL (J2270) IV PRN (18:16)
[2021-03-30] MEDS: ALBUTEROL SULFATE 2.5 MG/0.5 ML INH NEB SOLN NEB SCH ×4 (01:30→19:33)
[2021-03-30] MEDS: SUCRALFATE SUSP 1GM/10ML UD PO SCH ×4 (07:30→20:51)
[2021-03-30] MEDS: MIRALAX *UNIT DOSE* 17GM PACKET PO SCH ×2 (09:00→10:14)
[2021-03-30] MEDS: BUPRENORPHINE/NALOXONE 2-0.5MG SUBLINGUAL TABLET(SUBOXONE) SL SCH ×2 (09:00→10:15)
[2021-03-30] MEDS: LACTULOSE 20 GM/30 ML SYRUP UD PO SCH (09:00)
[2021-03-30] MEDS: BACLOFEN 5MG PER 1/2 TABLET PO SCH ×4 (09:00→20:51)
[2021-03-30] MEDS ORDERED: SODIUM CHLORIDE 0.9% INJ 10 ML SYR IV SCH (09:00)
[2021-03-30] MEDS ORDERED: REMDESIVIR 100 MG in NS 250 ML IV SCH (09:00)
[2021-03-30] MEDS: SENNA 8.6 MG TAB (SENOKOT) PO SCH ×3 (09:00→20:51)
[2021-03-30] MEDS: NYSTATIN 100,000 UNITS/GM TOPICAL PWD 15 GM TOP SCH ×2 (10:15→20:52)
[2021-03-30] MEDS: DOCUSATE SODIUM 100MG CAPSULE PO SCH ×2 (10:15→20:51)
[2021-03-30] MEDS: MORPHINE 2 MG/ML 1ML VIAL (J2270) IV PRN ×2 (10:41→13:48)
[2021-03-30] MEDS: LORazepam 2 MG/ML VIAL IV PRN ×2 (12:40→15:52)
--- NOTE | 2021-03-31 11:31 | DS.PDOC ---
Discharge Summary General Date of Admission Mar 25, 2021 at 13:47 Date of Discharge 03/31/2021 Attending Physician: ANGELI PENA DO Discharge Summary PROCEDURES PERFORMED DURING STAY: None. ADMITTING DIAGNOSES: 1. COVID-19 infection. 2. Paraplegia as well as paresis of the left upper extremity 3. Chronic pain 4. 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 Bladder spasm 6. Upper thyroidism 7. Type 2 diabetes with neuropathy 8. Dyslipidemia 9. Anxiety/depression 10. Chronic constipation 11. Heart failure preserved ejection fraction 12. GERD 13. Morbid obesity 14. MICU cutaneous candidiasis 15. Chronic anemia 16. Severe protein calorie malnutrition DISCHARGE DIAGNOSES: 1. COVID-19 infection, possible Covid pneumonia however, chest x-ray was not done after acute worsening of hypoxia due to patient becoming [employer] 2. Paraplegia as well as paresis of the left upper extremity 3. Chronic pain 4. 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 Bladder spasm 6. Upper thyroidism 7. Type 2 diabetes with neuropathy 8. Dyslipidemia 9. Anxiety/depression 10. Chronic constipation 11. Heart failure preserved ejection fraction 12. GERD 13. Morbid obesity 14. MICU cutaneous candidiasis 15. Chronic anemia 16. Severe protein calorie malnutrition 17. Lactic acidosis on admission 18. Hypokalemia 19. Acute hypoxic respiratory failure requiring oxygen to be increased from baseline 20. Possible urinary tract infection as urine culture grew E. coli, Citrobacter youngae and Enterococcus faecalis COMPLICATIONS/CHIEF COMPLAINT: Covid-19, Quadriplegia. HISTORY OF PRESENT ILLNESS: Patient is a 65-year-old female who presented to the hospital after being unable to care for self and was found to have COVID-19. Patient was just recently admitted and discharged due to inability to care for herself at home. At the time of the patient's admission, patient was on her regular oxygen settings with her trach collar. HOSPITAL COURSE: Patient remained on her regular settings of her trach collar for the first 2 days of her hospitalization. Patient dealt with chronic constipation and had to have her bowel meds increased. Overnight on 03/27/2021, patient developed worsening hypoxia and increased work of breathing which required her oxygen settings to be increased from 5 L a minute and FiO2 of 28 to 10 L a minute and FiO2 of 80. Patient had begun refusing care at this time and when I went to evaluate the patient on 03/28/2021 I had a conversation with her about her refusing care. Patient stated that she did not want anything more done. When I offered the patient hospice care, patient excepted. Patient was transitioned to comfort measures only. Patient remained on comfort measures only until she on 03/31/2021 at 02:44. Please see progress note from 03/28/2021 for full details of patient becoming comfort measures only. DISCHARGE MEDICATIONS: Please see below. ALLERGIES: Please see below. PHYSICAL EXAMINATION ON DISCHARGE: VITAL SIGNS: Please see below. Examination was not performed as the patient had overnight LABORATORY DATA: Please see below. IMAGING: Chest x-ray performed on 03/25/2021 was reported to show no radiographic evidence of acute infiltrate. Stable chronic findings. PROGNOSIS: DISPOSITION: 20 . DISCHARGE CONDITION: . TIME SPENT ON DISCHARGE: 20 minutes. Vital Signs/I&Os Vital Signs Date Time Temp Pulse Resp B/P (MAP) Pulse Ox O2 Delivery O2 Flow Rate FiO2 03/30/21 10:00 10.0 80 03/29/21 05:17 98.5 109 20 112/54 (73) 98 Trach Collar I&O- Last 24 Hours up to 6 AM 03/31/21 06:00 Intake Total 0 ml Output Total 60 ml Balance -60 ml Microbiology Microbiology 03/25/21 Urine Culture - Final, Complete Escherichia Coli Citrobacter Youngae Enterococcus Faecalis 03/25/21 Blood Culture - Final, Complete NO GROWTH AFTER 5 DAYS 03/25/21 Blood Culture - Final, Complete NO GROWTH AFTER 5 DAYS 03/25/21 Respiratory Virus Panel (PCR) (PARISA) - Final, Complete SARS-CoV-2 (COVID 19) Discharge Medications Scheduled Aspirin (Aspirin EC) 81 Mg Tablet.dr, 81 MG PO DAILY, (Reported) Atorvastatin Calcium (Atorvastatin Calcium) 40 Mg Tablet, 40 MG PO QHS, (Reported) Baclofen (Baclofen) 10 Mg Tablet, 5 MG PO TID, (Reported) Buprenorphine HCl/Naloxone HCl (Suboxone 4 mg-1 mg Sl Film) 1 Each Film, 1 STRIP SL BID, (Reported) Docusate Sodium (Docusate Sodium) 100 Mg Capsule, 100 MG PO BID, (Reported) Duloxetine Hcl (Duloxetine HCl) 60 Mg Capsule.dr, 60 MG PO QHS, (Reported) Ferrous Gluconate (Ferrous Gluconate) 324 Mg Tablet, 324 MG PO QHS, (Reported) Folic Acid (Folic Acid) 1 Mg Tablet, 1 MG PO DAILY, (Reported) Hydroxyzine HCl (Hydroxyzine HCl) 25 Mg Tablet, 25 MG PO TID, (Reported) Lactulose (Lactulose) 10 Gm/15 Ml Solution, 30 ML PO DAILY, (Reported) Levothyroxine Sodium (Synthroid) 50 Mcg Tablet, 50 MCG PO DAILY, (Reported) Nystatin (Nystatin Powder) 15 Gm Powder, 1 DOSE TOP BID, (Reported) APPLIES UNDER BREASTS Nystatin (Nystatin) 15 Gm Oint...g., 0 TOP BID Apply to back and thigh rash twice daily for 7 days. Sennosides (Senna) 8.6 Mg Tablet, 8.6 MG PO BID, (Reported) Sucralfate (Carafate) 1 Gm/10 Ml Oral.susp, 10 ML PO QID, (Reported) Torsemide (Torsemide) 20 Mg Tablet, 40 MG PO BID, (Reported) Scheduled PRN Polyethylene Glycol 3350 (Miralax) 17 Gm Powd.pack, 17 GM PO DAILY PRN for CONSTIPATION, (Reported) Polyvinyl Alcohol (Polyvinyl Alcohol Eye Drops) 15 Ml Drops, 2 DROP OU TID PRN for DRY EYES, (Reported) Allergies Coded Allergies: oxybutynin (Verified Allergy, Mild, rash, 01/16/21) ANGELI PENA DO Mar 31, 2021 11:31
== END 2021-03-31 04:25 | disposition expired | DRG 177 ==
LOC: M ED 09:42 → EDBD 09:42 → M ED INP 13:47 → M 4MAIN 14:58
PROVIDERS: ADMIT Internal Medicine Nephrology; ATTEND Family Medicine
PROC: 3E0333Z Introduction of Anti-inflammatory into Peripheral Vein, Percutaneous Approach (ICD-10-PCS; principal; 2021-03-25)
DX: U07.1 COVID-19 (principal); L89.154 Pressure ulcer of sacral region, stage 4; L89.224 Pressure ulcer of left hip, stage 4; E43 Unspecified severe protein-calorie malnutrition; J12.82 Pneumonia due to coronavirus disease 2019; J96.21 Acute and chronic respiratory failure with hypoxia; L89.214 Pressure ulcer of right hip, stage 4; G82.20 Paraplegia, unspecified; M86.652 Other chronic osteomyelitis, left thigh; J98.11 Atelectasis; I50.32 Chronic diastolic (congestive) heart failure; Z68.41 Body mass index [BMI] 40.0-44.9, adult; E87.2 Acidosis; N39.0 Urinary tract infection, site not specified; E87.1 Hypo-osmolality and hyponatremia; N31.9 Neuromuscular dysfunction of bladder, unspecified; Z66 Do not resuscitate; K59.09 Other constipation; D50.9 Iron deficiency anemia, unspecified; E66.01 Morbid (severe) obesity due to excess calories; B96.20 Unspecified Escherichia coli [E. coli] as the cause of diseases classified elsewhere; I11.0 Hypertensive heart disease with heart failure; L89.610 Pressure ulcer of right heel, unstageable; G89.29 Other chronic pain; E11.40 Type 2 diabetes mellitus with diabetic neuropathy, unspecified; E03.9 Hypothyroidism, unspecified; B37.2 Candidiasis of skin and nail; G43.909 Migraine, unspecified, not intractable, without status migrainosus; M06.9 Rheumatoid arthritis, unspecified; Z93.0 Tracheostomy status; Z93.1 Gastrostomy status; N32.89 Other specified disorders of bladder; F32.A Depression, unspecified; F41.9 Anxiety disorder, unspecified; D63.8 Anemia in other chronic diseases classified elsewhere; Z79.82 Long term (current) use of aspirin; Z79.899 Other long term (current) drug therapy; Z93.3 Colostomy status; Z88.8 Allergy status to other drugs, medicaments and biological substances; Z90.49 Acquired absence of other specified parts of digestive tract; Z79.891 Long term (current) use of opiate analgesic